=== PATIENT | female | born 1985 | race Caucasian/White ===

== ENCOUNTER 2016-12-05 11:33 | Inpatient (IN) | payer BC ==
[2016-12-05] VITALS (10 sets, daily range): BP systolic 128–163; BP diastolic 71–109
[~2016-12-05] VITALS: Ht 162.6 cm; Wt 61.4 kg
[~2016-12-05 11:33] MED LIST: /INSU7030 SC; /MOXI40TA PO; /PRAV20TA PO; ACET500C OR; ACET500C PO; ACET50TAOT PO; ACET65TA; ACET65TA OR; AMOXIL500 PO; BACT800T5 PO; CELE20TA OR; CELE20TA PO; CEPA0.05 OR; CIPR500T89 PO; CITA10TA2 PO; DEPO150I IM; HYDR-3713 PO; IBUP200C PO; IMODIUM AD PO; INSUH10VL SC; INSULADS SC; INSULANT; INSULANT SC; K-TA10TA; K-TA10TA2 PO; K-TA1TAB PO; KCL PO; KEFL750C5 PO; LEVA750T PO; LINE60TAB PO; Lantus Insulin SC; MEDR4PAK PO; METH-107 PO; METO10TA2 PO; MIRALEX PO; MULTCAP PO; MULTIVIT PO; MULTTAB4 PO; NAPR500T2 PO; NEEDLEBB SC; NEUTPW PO; NOVOINJ SC; NOVOLIN 70/30 SC; NOVOLOG SC; NOVOLOG100 MG/ML; NOVOLOG100 MG/ML SC; NOVOLOGPEN SQ; OMEP20CA3 PO; OMEP40CA2 PO; PHEN 25 PO; POTA-77 PO; POTA10CA2 OR; POTA20IN PO; POTA20TA2 OR; POTA75TA PO; POTA99TA PO; POTASSIUM GLUCONATE PO; POTASSIUM OR; PRAV1TAB39 PO; PRAV40TA PO; PRAV40TA2 PO; Potassium PO; SKEL800T5 OR; SYRINS1CC SUBQ; VERA40TA2 PO; VITAD1000T OR; VITMTA PO; ZITHROM250 PO; ZOFR20TA PO; [UNRECOGNIZED DRUG - OTHER] SC; [UNRECOGNIZED DRUG - OTHER] TOP; colace PO; mag oxide PO; novol; novolog; novolog insulin pump SC; potassium gluconate
[2016-12-05 12:28] LABS: BASO # 0.1 K/mm3 (0.0-0.2); BASO % 0.6 % (0.0-1.0); EOS # 0.1 K/mm3 (0.0-0.50); EOS % 0.4 % (0.0-3.0); LARGE UNSTAINED CELL # 0.2 K/mm3 (0.0-0.4); LARGE UNSTAINED CELL % 1.1 % (0.0-4.0); LYMPH # 4.2 K/mm3 (1.5-6.5); LYMPH % 20.5 % (24.0-44.0); MEAN CORPUSCULAR HEMOGLOBIN 31.5 pg (27.0-33.0); MEAN CORPUSCULAR HGB CONC 31.6 g/dl (32.0-36.5); MEAN CORPUSCULAR VOLUME 99.8 fl (80.0-96.0); MONO # 0.9 K/mm3 (0.0-0.8); MONO % 4.3 % (0.0-5.0); NEUTROPHILS # 14.9 K/mm3 (1.8-7.7); NEUTROPHILS % 73.1 % (36.0-66.0); PLATELET COUNT, AUTOMATED 450 k/mm3 (150-450); RED CELL DISTRIBUTION WIDTH 13.4 % (11.5-14.5); WHITE BLOOD COUNT 20.4 K/mm3 (4.0-10.0)
[2016-12-05 12:37] LABS: CONTROL LINE HCG INT CTR LINE PRESENT
[2016-12-05 12:44] LABS: ALBUMIN/GLOBULIN RATIO 0.85 (1.00-1.93); ALKALINE PHOSPHATASE 134 U/L (45-117); ALT/SGPT 27 U/L (12-78); ANION GAP 24 MEQ/L (8-16); AST/SGOT 22 U/L (15-37); BILIRUBIN,DIRECT 0.1 MG/DL (0.0-0.2); BILIRUBIN,TOTAL 0.4 MG/DL (0.2-1.0); BLOOD UREA NITROGEN 31 MG/DL (7-18); CALCIUM LEVEL 9.1 MG/DL (8.5-10.1); CARBON DIOXIDE LEVEL 5 MEQ/L (21-32); CHLORIDE LEVEL 104 MEQ/L (98-107); CREATININE FOR GFR 1.57 MG/DL (0.55-1.02); GLOMERULAR FILTRATION RATE 41.5 (>60); SODIUM LEVEL 133 MEQ/L (136-145); TOTAL PROTEIN 8.7 GM/DL (6.4-8.2)
[2016-12-05 12:46] LABS: GLUCOSE, FASTING 736 MG/DL (70-105); POTASSIUM SERUM 5.4 MEQ/L (3.5-5.1)
--- NOTE | 2016-12-05 13:18 | ECGEPIP ---
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
[2016-12-05] MEDS ORDERED: HumuLIN R (REGULAR) INSULIN (NovoLIN R) **100U/ML** PER UNIT As Ordered ONE (13:25)
[2016-12-05] MEDS ORDERED: INSULIN HUMAN REGULAR 100 UNITS in NS 99 ML IV SCH (13:30)
[2016-12-05 13:50] LABS: ABG DEVICE NASAL CANN; ABG HCO3 1.5 MEQ/L (22.0-26.0); ABG PARTIAL PRESSURE O2 182.2 mmHg (75.0-100.0); ABG STANDARD HCO3 3.7 MEQ/L (22.0-26.0); ABG TOTAL CO2 1.8 MEQ/L (22.0-29.0)
[2016-12-05 13:54] LABS: ABG PARTIAL PRESSURE CO2 11.5 mmHg (35.0-45.0); ABG pH (ARTERIAL) 6.721 UNITS (7.350-7.450)
[2016-12-05] MEDS ORDERED: SODIUM BICARBONATE 8.4% INJ 50 ML SYRINGE As Ordered ONE (14:10)
[2016-12-05] MEDS: NS 1,000 ML IV SCH ×2 (14:45→19:40)
--- NOTE | 2016-12-05 14:49 | REP ---
AP portable semi upright chest radiograph. Indication: Shortness of breath. Comparison: Portable chest 08/29/2015. The cardiac silhouette and mediastinal silhouette are within normal limits. Lungs are clear. Bones and soft tissues within normal limits. IMPRESSION: Negative portable chest radiograph. Signed by Barb Lacy MD 12/06/2016 10:56 A
--- NOTE | 2016-12-05 15:39 | EDDOCDS ---
Nurse's Notes [facility] Name: Kirit Paez Age: 31 yrs Sex: Female : 1985 Arrival Date: 12/05/2016 Time: 11:33 Bed 1 Private MD: Rach Claire Diagnosis: Type 1 diabetes mellitus with ketoacidosis Presentation: 12/05 11:39 Presenting complaint: Father states: patient has not checked blood sugars since kr3 11/26/16. Yesterday patient refused to come out of her room even with encouragement to eat something. Patient is noncompliant with meds per father and has had multiple admissions related to this. Adult Sepsis Screening: Patient has new or worsening altered mentation (1 point). Patient has a respiratory rate of greater than or equal to 22 (1 point). Systolic blood pressure is greater than 100. Patient has a qSOFA score of 2. No known or suspected infection- Negative Sepsis Screen. Suicide/Homicide risk assessment- the patient denies having any suicidal and/or homicidal ideations and does not present with any other emotional, behavioral or mental health complaints. 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 Transition of care: patient was not received from another setting of care. 11:39 Acuity: DENA Level 2 kr3 11:39 Method Of Arrival: Wheelchair kr3 11:48 Red Flag criteria, patient assessed and taken directly to a bed. kr3 Triage Assessment: 11:43 General: Appears ill, Behavior is cooperative. Pain: Unable to use pain scale. Does not kr3 appear to understand pain scale. HIV screening NA for this visit Offered previously. The patient is triaged at the bedside. See Assessment in Nurses Notes section of ED record. Neurological: Level of Consciousness is listless. Respiratory: Airway is patent Respiratory effort is labored. Derm: Skin is pale, Skin temperature is cool. 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 Novolog 100 unit/mL Sub-Q soln AC and HS Sliding Scale 2. Lantus 100 unit/mL Sub-Q soln Unknown twice a day 3. Depo-Provera 150 mg/mL IM syrg 1 mL every 3 mo - PMHx: Diabetes - IDDM: controlled; Hypercholesterolemia; hypokalemia; - PSHx: none; - Social history: Smoking status: Patient states was never smoker of tobacco. No barriers to communication noted, The patient speaks fluent Syrian. - Family history: Not pertinent. - : The pt / caregiver states he / she is not on anticoagulants. Home medication list is obtained from family members. - Exposure Risk Screening:: None identified. Screenin:32 Screening information is obtained from prior medical records. Fall risk: At risk due to srm apparent chemical impairment. Assistance ADL's: unable to assess. Abuse/DV Screen: Unable to Assess. Abuse/DV Screen: The patient / caregiver reports he/she is: pt cannot be assessed for living situation at this time. Nutritional screening: Unable to Assess. Advance Directives: Unable to assess Advance Directive status due to pt condition. home support is inadequate. Assessment: 11:51 General: Appears distressed, Behavior is drowsy. Neurological: Level of Consciousness ja5 is lethargic, obeys commands, Oriented to. Cardiovascular: Capillary refill < 3 seconds Heart tones S1 S2 present. Respiratory: Airway is patent Respiratory effort is labored, Respiratory pattern is tachypnea Breath sounds are clear. Derm: Skin is intact, Skin is Skin is pink, warm & dry. 11:53 Neurological: Oriented to person, place. ja5 13:14 General: Triple lumen central line placed to right groin, patient tolerated well. ja5 Patient still has rapid deep respirations ranging from 24-32 breaths per minute. IV bolus initiated.. 13:38 General: Appears distressed, Behavior is drowsy, listless. Neurological: Level of srm Consciousness is lethargic, obeys commands. Respiratory: Airway is patent Respiratory effort is labored, Respiratory pattern is Kussmaul tachypnea Sputum is Breath sounds are clear bilaterally. 13:38 GI: Abdomen is distended, Bowel sounds present X 4 quads. Abd is soft and non tender X srm 4 quads. :. Derm: Skin is intact, Skin is dry, Skin is pale, Skin temperature is cool. 13:58 General: pt incontinent large amount of urine. linens changed and pt cleaned. srm 13:58 Respiratory: Respiratory pattern is Kussmaul tachypnea. srm 14:32 General: pt was sitting up on stretcher with eyes open for 1-2 mins but then reclosed. srm nods and short responses. FSBS read high- dr frias aware. kussmaul resp chest clear. nsr on monitor. . 15:24 General: Appears in no apparent distress, arouses occasionally but hen falls asleep srm again. resp less labored chest clear. bs+. right femoral central line insertion site clean without redness or swelling. Vital Signs: 11:35 BP 126 / 72 LA Sitting (auto/reg); Pulse 123 LA; Resp 28 S; Temp 92.8(T); Pulse Ox 99% mt4 on R/A; 12:05 Temp 96.5(TE); ja5 12:20 BP 121 / 79 (auto/); jc4 12:21 Pulse 116 MON; Pulse Ox 97% ; jc4 12:26 BP 133 / 79 (auto/); jc4 12:27 Pulse 114 MON; Pulse Ox 97% ; jc4 12:40 Pulse 112 MON; Pulse Ox 98% ; jc4 12:41 BP 134 / 78 (auto/); jc4 12:56 BP 134 / 81 (auto/); jc4 12:59 Pulse 112 MON; Pulse Ox 98% ; jc4 13:11 BP 138 / 77 (auto/); jc4 13:12 Pulse 112 MON; Pulse Ox 98% ; jc4 13:16 Weight 58.97 kg (R); ar3 13:59 BP 134 / 83; Pulse 111; Resp 24; Pulse Ox 96% on 3 lpm NC; srm 15:31 BP 131 / 73; Pulse 112; Resp 22; Temp 94.1(R); Pulse Ox 100% on 3 lpm NC; srm 11:35 PT IS SIGNIFICANT RESPIRATORY DISTRESS. mt4 Vitals: 11:35 Log In Time: December 05, 2016 at 11:33. RN notified that patient meets Red Flag mt4 criteria. ED Course: 11:34 Patient visited by Maris Carpenter. mt4 11:34 Patient moved to Waiting mt4 11:35 Rach Claire is Private Physician. mt4 11:39 Rosanna Lewis,RN is Primary Nurse. kr3 11:39 Nickie Pineda, RN is Primary Nurse. kr3 11:39 Patient moved to 12 kr3 11:42 Triage Initiated kr3 11:50 Inserted saline lock: 22 gauge in right hand. jc4 11:53 Nydia Frias MD is Attending Physician. br1 12:34 [facility] Payment Agreement was scanned into [employer] and attached to record. lg 12:35 Patient visited by Fouzia Jaramillo. nb2 13:00 Assist provider with central line placement of triple lumen in right femoral. Set up ja5 central line tray. Line placed by Nydia Frias MD Placement verified by blood return, Dressed with Tegaderm, Patient tolerated well. Assist provider with chest tube insertion. 13:06 Patient visited by Nydia Frias MD. br1 13:14 Patient visited by Rosanna Lewis RN. ja5 13:31 Patient moved to 1 ar3 13:37 The patient / caregiver is instructed regarding the plan of care and ED course. Report srm received from Ann Pineda rn. retail shift manager on. Pulse ox on. NIBP on. 13:39 Patient visited by Elise Smyth RN. srm 13:43 EKG-ADULT Returned. EDMS 13:44 -Arterial Blood Gas Sent. lb 14:00 Patient visited by Elise Smyth RN. srm 14:29 Mario Craig is Hospitalizing Provider. br1 14:34 Patient visited by Elise Smyth RN. srm 14:36 Patient visited by Elise Smyth RN. srm 14:57 Chest, 1 View Returned. EDMS 15:25 Patient visited by Elise Smyth RN. srm Administered Medications: 13:21 Drug: NS 0.9% 1000 ml [sodium chloride 0.9 % intravenous solution] Route: IV; Rate: jc4 bolus; Site: right femoral; 14:16 Follow up: IV Status: Completed infusion srm 13:30 Drug: Insulin Regular Human 6 units [insulin regular human 100 unit/mL injection mb9 solution (0.06 mL)] {Co-Signature: ld5 (Nayeli Nava RN).} Route: IVP; Site: right femoral; 13:35 Drug: Insulin Regular Human Infusion (0.1units/kg/hr) 6 units/hr [insulin regular human mb9 100 unit/mL injection solution] {Co-Signature: ld5 (Nayeli Nava RN).} Route: IV; Rate: calculated rate; Site: right femoral; 14:12 Drug: Sodium Bicarbonate 1 amp Route: IVP; Site: right femoral; srm 14:17 Drug: NS 0.9% 1000 ml [sodium chloride 0.9 % intravenous solution] Route: IV; Rate: 150 srm mL/hr; Site: right femoral; Point of Care Testing: Blood Glucose: 11:49 Blood Glucose: High; kr3 14:35 Blood Glucose: High; srm 15:31 Blood Glucose: 596 mg/dL; srm Ranges: Intake: 15:34 IV: 1215.00ml; Total: 1215.00ml. srm 15:34 incontinent lrage amount srm RT: 13:44 ABG's drawn from right radial artery allens test done and positive pressure held for 5 lb minutes no bleeding noted pressure bandage applied specimen sent pt. tolerated well. Order Results: Lab Order: CBC with Diff; SPEC'M 12/05/16 12:21 Test: WHITE BLOOD COUNT; Value: 20.4; Range: 4.0-10.0; Abnormal: Above high normal; Units: K/mm3; Status: F Test: RED BLOOD COUNT; Value: 4.87; Range: 4.00-5.40; Units: M/mm3; Status: F Test: HEMOGLOBIN; Value: 15.3; Range: 12.0-16.0; Units: g/dl; Status: F Test: HEMATOCRIT; Value: 48.6; Range: 36.0-47.0; Abnormal: Above high normal; Units: %; Status: F Test: MEAN CORPUSCULAR VOLUME; Value: 99.8; Range: 80.0-96.0; Abnormal: Above high normal; Units: fl; Status: F Test: MEAN CORPUSCULAR HEMOGLOBIN; Value: 31.5; Range: 27.0-33.0; Units: pg; Status: F Test: MEAN CORPUSCULAR HGB CONC; Value: 31.6; Range: 32.0-36.5; Abnormal: Below low normal; Units: g/dl; Status: F Test: RED CELL DISTRIBUTION WIDTH; Value: 13.4; Range: 11.5-14.5; Units: %; Status: F Test: PLATELET COUNT, AUTOMATED; Value: 450; Range: 150-450; Units: k/mm3; Status: F Test: NEUTROPHILS %; Value: 73.1; Range: 36.0-66.0; Abnormal: Above high normal; Units: %; Status: F Test: LYMPH %; Value: 20.5; Range: 24.0-44.0; Abnormal: Below low normal; Units: %; Status: F Test: MONO %; Value: 4.3; Range: 0.0-5.0; Units: %; Status: F Test: EOS %; Value: 0.4; Range: 0.0-3.0; Units: %; Status: F Test: BASO %; Value: 0.6; Range: 0.0-1.0; Units: %; Status: F Test: LARGE UNSTAINED CELL %; Value: 1.1; Range: 0.0-4.0; Units: %; Status: F Test: NEUTROPHILS #; Value: 14.9; Range: 1.8-7.7; Abnormal: Above high normal; Units: K/mm3; Status: F Test: LYMPH #; Value: 4.2; Range: 1.5-6.5; Units: K/mm3; Status: F Test: MONO #; Value: 0.9; Range: 0.0-0.8; Abnormal: Above high normal; Units: K/mm3; Status: F Test: EOS #; Value: 0.1; Range: 0.0-0.50; Units: K/mm3; Status: F Test: BASO #; Value: 0.1; Range: 0.0-0.2; Units: K/mm3; Status: F Test: LARGE UNSTAINED CELL #; Value: 0.2; Range: 0.0-0.4; Units: K/mm3; Status: F Lab Order: [facility]; [facility]'M 12/05/16 12:21 Test: GLUCOSE, FASTING; Value: 736; Range: 70-105; Abnormal: Above upper panic limits; Units: MG/DL; Status: F Test: BLOOD UREA NITROGEN; Value: 31; Range: 7-18; Abnormal: Above high normal; Units: MG/DL; Status: F Test: CREATININE FOR GFR; Value: 1.57; Range: 0.55-1.02; Abnormal: Above high normal; Units: MG/DL; Status: F Test: SODIUM LEVEL; Range: 136-145; Units: MEQ/L; Status: I Test: POTASSIUM SERUM; Range: 3.5-5.1; Units: MEQ/L; Status: I Test: CHLORIDE LEVEL; Range: 98-107; Units: MEQ/L; Status: I Test: CARBON DIOXIDE LEVEL; Range: 21-32; Units: MEQ/L; Status: I Test: ANION GAP; Range: 8-16; Units: MEQ/L; Status: I Test: CALCIUM LEVEL; Range: 8.5-10.1; Units: MG/DL; Status: I Test: GLOMERULAR FILTRATION RATE; Value: 41.5; Range: >60; Abnormal: Below low normal; Status: F Test: SODIUM LEVEL; Value: 133; Range: 136-145; Abnormal: Below low normal; Units: MEQ/L; Status: F Test: POTASSIUM SERUM; Value: 5.4; Range: 3.5-5.1; Abnormal: Above high normal; Units: MEQ/L; Status: F Test: CHLORIDE LEVEL; Value: 104; Range: 98-107; Units: MEQ/L; Status: F Test: CARBON DIOXIDE LEVEL; Value: 5; Range: 21-32; Abnormal: Below low normal; Units: MEQ/L; Status: F Test: ANION GAP; Value: 24; Range: 8-16; Abnormal: Above high normal; Units: MEQ/L; Status: F Test: CALCIUM LEVEL; Value: 9.1; Range: 8.5-10.1; Units: MG/DL; Status: F Test Note: ; Units are mL/min/1.73 m2 Chronic Kidney Disease Staging per NKF: Stage I & II GFR >=60 Normal to Mildly Decreased Stage III GFR 30-59 Moderately Decreased Stage IV GFR 15-29 Severely Decreased Stage V GFR <15 Very Little GFR Left ESRD GFR <15 on CARPENTER/LABOR Lab Order: Liver Profile; SPEC'M 12/05/16 12:21 Test: AST/SGOT; Value: 22; Range: 15-37; Units: U/L; Status: F Test: ALT/SGPT; Value: 27; Range: 12-78; Units: U/L; Status: F Test: ALKALINE PHOSPHATASE; Value: 134; Range: 45-117; Abnormal: Above high normal; Units: U/L; Status: F Test: BILIRUBIN,TOTAL; Value: 0.4; Range: 0.2-1.0; Units: MG/DL; Status: F Test: BILIRUBIN,DIRECT; Value: 0.1; Range: 0.0-0.2; Units: MG/DL; Status: F Test: TOTAL PROTEIN; Value: 8.7; Range: 6.4-8.2; Abnormal: Above high normal; Units: GM/DL; Status: F Test: ALBUMIN; Value: 4.0; Range: 3.2-5.2; Units: GM/DL; Status: F Test: ALBUMIN/GLOBULIN RATIO; Value: 0.85; Range: 1.00-1.93; Abnormal: Below low normal; Status: F Lab Order: Acetone Level; [facility] 12/05/16 12:21 Test: ACETONE/KETONE; Value: > 46.00; Range: <2.81; Abnormal: Above high normal; Units: MG/DL; Status: F Lab Order: HCG,Serum Qualitative; [facility] 12/05/16 12:21 Test: HCG, SERUM QUALITATIVE; Value: NEGATIVE; Range: NEGATIVE; Status: F Lab Order: -Arterial Blood Gas; [facility] 12/05/16 13:39 Test: ABG pH (ARTERIAL); Value: 6.721; Range: 7.350-7.450; Abnormal: Critical Low; Units: UNITS; Status: F Test: ABG PARTIAL PRESSURE CO2; Value: 11.5; Range: 35.0-45.0; Abnormal: Critical Low; Units: mmHg; Status: F Test: ABG PARTIAL PRESSURE O2; Value: 182.2; Range: 75.0-100.0; Abnormal: Above high normal; Units: mmHg; Status: F Test: ABG TOTAL CO2; Value: 1.8; Range: 22.0-29.0; Abnormal: Below low normal; Units: MEQ/L; Status: F Test: ABG HCO3; Value: 1.5; Range: 22.0-26.0; Abnormal: Below low normal; Units: MEQ/L; Status: F Test: ABG BASE EXCESS; Value: -34.0; Range: -2.0-2.0; Abnormal: Below low normal; Status: F Test: ABG STANDARD HCO3; Value: 3.7; Range: 22.0-26.0; Abnormal: Below low normal; Units: MEQ/L; Status: F Test: ABG O2 SATURATION; Value: 98.6; Range: 95.0-99.0; Units: %; Status: F Test: ABG DEVICE; Value: NASAL ALHAJI; Status: F Lab Order: HEMOGLOBIN A1C; SPEC'M 12/05/16 12:21 Test: HEMOGLOBIN A1c; Value: 12.4; Range: 4.5-6.2; Abnormal: Above high normal; Units: %; Status: F Test: ESTIMATED AVERAGE GLUCOSE; Value: 309; Range: 60-110; Abnormal: Above high normal; Units: MG/DL; Status: F Radiology Order: EKG-ADULT Test: EKG-ADULT REASON FOR EXAMINATION: dysrhythmia; Stationary ECG Study; [facility] - ED; ; Test Date: 2016-12-05; Pat Name: KIRIT PAEZ Department:; Room: -; 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: F 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; : 1985 Requested By: NYDIA Luz; Order Number: [id number] Reading MD: Megan Santillan; Measurements; Intervals [place]; Rate: 114 P: 65; LA: 136 QRS: 36; QRSD: 94 T: 17; QT: 326; QTc: 450; Interpretive Statements; SINUS TACHYCARDIA; NONSPECIFIC T-WAVE ABNORMALITY; ABNORMAL RHYTHM ECG; ; Electronically Signed On 12-05-2016 13:18:46 EST by Megan Santillan; Radiology Order: Chest, 1 View Test: Chest, 1 View REASON FOR EXAMINATION: Shortness of Breath; AP portable semi upright chest radiograph.; ; Indication: Shortness of breath.; ; Comparison: Portable chest 08/29/2015.; ; ; The cardiac silhouette and mediastinal silhouette are within normal limits. Lungs; are clear. Bones and soft tissues within normal limits.; ; IMPRESSION:; Negative portable chest radiograph.; ; ; ; ; ; Unreviewed; Outcome: 14:29 Decision to Hospitalize by Provider. br1 15:36 Discharge Assessment: patient administered narcotics - no. The following High Risk srm Discharge criteria are identified: None. Admitted to ICU accompanied by nurse, accompanied by tech, via stretcher, with oxygen, on monitor, with chart. Condition: stable critical. No special radiology studies were completed. Property :Personal belongings accompany Pt. 15:37 Patient left the ED. srm Signatures: Dispatcher [employer] EDMS Elise Smyth, RN RN Wolf Malone, Justus Reg Rosemary Hernandez Kathleen,RN RN kr3 Nydia Frias MD MD br1 Jayden, Maris mt4 Kristi Quintana, EVS MANAGER EVS MANAGER ar3 Nickie Pineda RN RN jc4 Femi John RN RN anita9 Fouzia Jaramillo2 Rosanna Lewis RN RN ja5 Nayeli Nava RN ld5 MTDD
--- NOTE | 2016-12-05 15:39 | EDDOCDS ---
Physician Documentation [facility] Name: Carolina Paez Age: 31 yrs Sex: Female : 1985 Arrival Date: 12/05/2016 Time: 11:33 Bed 1 Private MD: Rach Claire Disposition: 12/05/16 14:29 Hospitalization ordered by Mario Craig for Inpatient Admission. Preliminary diagnosis is Type 1 diabetes mellitus with ketoacidosis. - Bed requested for M ICU. - Status is Inpatient Admission. srm - Condition is Stable. - Problem is new. - Symptoms are unchanged. Historical: - Allergies: No known drug Allergies; - Home Meds: 1. Novolog 100 unit/mL Sub-Q soln AC and HS Sliding Scale 2. Lantus 100 unit/mL Sub-Q soln Unknown twice a day 3. Depo-Provera 150 mg/mL IM syrg 1 mL every 3 mo - PMHx: Diabetes - IDDM: controlled; Hypercholesterolemia; hypokalemia; - PSHx: none; - Social history: Smoking status: Patient states was never smoker of tobacco. No barriers to communication noted, The patient speaks fluent Syriac. - Family history: Not pertinent. - : The pt / caregiver states he / she is not on anticoagulants. Home medication list is obtained from family members. - Exposure Risk Screening:: None identified. 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 11:47 LMP N/A - control method kr3 Vital Signs: 11:35 BP 126 / 72 LA Sitting (auto/reg); Pulse 123 LA; Resp 28 S; Temp 92.8(T); Pulse Ox 99% mt4 on R/A; 12:05 Temp 96.5(TE); ja5 12:20 BP 121 / 79 (auto/); jc4 12:21 Pulse 116 MON; Pulse Ox 97% ; jc4 12:26 BP 133 / 79 (auto/); jc4 12:27 Pulse 114 MON; Pulse Ox 97% ; jc4 12:40 Pulse 112 MON; Pulse Ox 98% ; jc4 12:41 BP 134 / 78 (auto/); jc4 12:56 BP 134 / 81 (auto/); jc4 12:59 Pulse 112 MON; Pulse Ox 98% ; jc4 13:11 BP 138 / 77 (auto/); jc4 13:12 Pulse 112 MON; Pulse Ox 98% ; jc4 13:16 Weight 58.97 kg / 130.01 lbs (R); ar3 13:59 BP 134 / 83; Pulse 111; Resp 24; Pulse Ox 96% on 3 lpm NC; srm 15:31 BP 131 / 73; Pulse 112; Resp 22; Temp 94.1(R); Pulse Ox 100% on 3 lpm NC; srm 11:35 PT IS SIGNIFICANT RESPIRATORY DISTRESS. mt4 Procedures: 13:20 Peripheral line: by aseptic technique a peripheral line was placed in the right br1 external jugular vein, Attempted 20 gauge Right EJ peripheral IV placement in neck, unsuccessful. Pressure held, hemostatic.. 13:21 Central Line: the site was prepped with Betadine, in sterile fashion, a triple lumen br1 catheter was inserted, in the right femoral vein, placement was verified, by blood return, the site was dressed with Tegaderm, using sterile technique, the patient tolerated the procedure, well. MDM: 11:55 IV Saline Lock ordered. br1 11:55 Overnight Babysitter/Pulse Ox/q 30 min VS ordered. br1 11:56 CBC with Diff Ordered. EDMS 11:56 BMP Ordered. EDMS 11:56 Liver Profile Ordered. EDMS 11:56 Acetone Level Ordered. EDMS 11:56 HCG,Serum Qualitative Ordered. EDMS 11:56 ECG WITH READING ER PHYS+CARDIAG ordered. EDMS 12:03 NS 0.9% 1000 ml IV at bolus once ordered. br1 12:34 [facility] Payment Agreement was scanned into [employer] and attached to record. lg 13:13 CBC with Diff Reviewed. br1 13:13 BMP Reviewed. br1 13:13 Liver Profile Reviewed. br1 13:13 Acetone Level Reviewed. br1 13:13 HCG,Serum Qualitative Reviewed. br1 13:16 Insulin Regular Human 6 units IVP once ordered. br1 13:17 Insulin Regular Human Infusion (0.1units/kg/hr) 6 units/hr IV at calculated rate Per br1 protocol ordered. 13:18 Call Respiratory ordered. br1 13:18 Chest, 1 View Ordered. EDMS 13:18 Oxygen at 2L/min via NC ordered. br1 13:19 Call Respiratory complete. ar3 13:19 -Arterial Blood Gas Ordered. EDMS 13:20 Accucheck hourly ordered. br1 13:20 BED REQUEST+ADM ordered. EDMS 13:23 NS 0.9% 1000 ml IV at 150 mL/hr continuous ordered. br1 13:32 Urinalysis Ordered. EDMS 13:32 Urine Culture Ordered. EDMS 14:09 Sodium Bicarbonate 1 amp IVP once ordered. br1 14:09 -Arterial Blood Gas Reviewed. br1 14:09 EKG-ADULT Reviewed. br1 14:57 ACETONE/KETONE Ordered. EDMS 14:58 BASIC METABOLIC PROFILE Ordered. EDMS 14:58 BASIC METABOLIC PROFILE Ordered. EDMS 14:58 BASIC METABOLIC PROFILE Ordered. EDMS 14:59 Admission / Observation Status ordered. EDMS 14:59 NPO DIET ordered. EDMS 15:05 HEMOGLOBIN A1C Ordered. EDMS Point of Care Testing: Blood Glucose: 11:49 Blood Glucose: High; kr3 14:35 Blood Glucose: High; srm 15:31 Blood Glucose: 596 mg/dL; srm Ranges: Administered Medications: 13:21 Drug: NS 0.9% 1000 ml [sodium chloride 0.9 % intravenous solution] Route: IV; Rate: jc4 bolus; Site: right femoral; 14:16 Follow up: IV Status: Completed infusion srm 13:30 Drug: Insulin Regular Human 6 units [insulin regular human 100 unit/mL injection mb9 solution (0.06 mL)] {Co-Signature: ld5 (Nayeli Nava RN).} Route: IVP; Site: right femoral; 13:35 Drug: Insulin Regular Human Infusion (0.1units/kg/hr) 6 units/hr [insulin regular human mb9 100 unit/mL injection solution] {Co-Signature: ld5 (Nayeli Nava RN).} Route: IV; Rate: calculated rate; Site: right femoral; 14:12 Drug: Sodium Bicarbonate 1 amp Route: IVP; Site: right femoral; srm 14:17 Drug: NS 0.9% 1000 ml [sodium chloride 0.9 % intravenous solution] Route: IV; Rate: 150 srm mL/hr; Site: right femoral; Signatures: Dispatcher [employer] EDPreet Holbrook RN Elise Stinson RN RN srm Wolf Lundberg, Reg Vanesa Romero lgRN RN kr3 Elia Menard MD MD br1 Kristi Quintana, CONCRETE BLOCK MAKER CONCRETE BLOCK MAKER ar3 [place], Nickie, RN RN jc4 Femi John RN mb9 Nayeli Nava RN ld5 The chart was reviewed and I authenticate all verbal orders and agree with the evaluation and treatment provided.Corrections: (The following items were deleted from the chart) 15:07 14:57 HEMOGLOBIN A1C ordered. EDMS EDMS Attachments: 12:34 [facility] Payment Agreement lg MTDD
[2016-12-05 15:44] LABS: ANION GAP 27 MEQ/L (8-16); BLOOD UREA NITROGEN 34 MG/DL (7-18); CALCIUM LEVEL 8.7 MG/DL (8.5-10.1); CARBON DIOXIDE LEVEL 3 MEQ/L (21-32); CHLORIDE LEVEL 113 MEQ/L (98-107); CREATININE FOR GFR 1.56 MG/DL (0.55-1.02); GLOMERULAR FILTRATION RATE 41.8 (>60); POTASSIUM SERUM 4.8 MEQ/L (3.5-5.1); SODIUM LEVEL 143 MEQ/L (136-145)
[2016-12-05 15:45] LABS: GLUCOSE, FASTING 599 MG/DL (70-105)
[2016-12-05] MEDS: INSULIN IV RATE CHANGE DOCUMENTATION ML/HR XX SCH ×3 (16:15→18:00)
[2016-12-05] MEDS ORDERED: SODIUM CHLORIDE 0.9% 1000 ML IV ONE (16:30)
--- NOTE | 2016-12-05 18:16 | HPE ---
DATE OF ADMISSION: 12/05/2016 PRIMARY CARE PHYSICIAN: Dr. Claire REASON FOR ADMISSION: Diabetic ketoacidosis (DKA). HISTORY OF PRESENT ILLNESS: Patient is a 31-year-old female with past medical history significant for insulin-dependent diabetes, multiple hospitalizations for DKA, presented to the emergency room with elevated fasting sugar. She stated she has not been compliant with her medications. Her father was accompanying her. He stated that she has not been compliant with her medications. Her blood sugar was last checked 11/26/2016. The patient was very lethargic, unable to answer any questions at this time. She was found to be in diabetic ketoacidosis with a pH of 6.7, fasting glucose was 731. Acetone level greater than 46. She had an anion gap of 24, carbon dioxide of 5. Hospitalist was called for the admission. REVIEW OF SYSTEMS: 12-point review of systems was unable to be obtained due to the patient's decreased mental status at this time. PAST MEDICAL HISTORY: Significant for insulin-dependent diabetes, hypokalemia, hyperlipidemia. SURGERIES: None. ALLERGIES: None. HOME MEDICATIONS: Include: - sliding scale - Lantus - Depo-Provera SOCIAL HISTORY: No smoking. This is all per record. FAMILY HISTORY: Noncontributory. PHYSICAL FINDINGS: Blood pressure on admission 126/72, pulse 123, respiratory rate 28, temperature 96.5, pulse oximetry 99% on room air. HEENT: Pupils equal, round, reactive. Oral mucosa very dry. CARDIAC: Tachycardiac. No murmurs appreciated. LUNGS: Clear to auscultation (CTA) bilaterally. ABDOMEN: Soft, nontender, positive bowel sounds. EXTREMITIES: No clubbing, cyanosis or edema. NEUROLOGIC: Unable to obtain a neurologic exam at this time due to the patient's altered mentation. LABORATORY FINDINGS: WBC is 20.4, hemoglobin 15.3, hematocrit 48.6, platelet count 450, pH 6.7, pCO2 11.5, pO2 182.2, bicarbonate 1.5, hemoglobin A1c 12.4, sodium 133, potassium 4.8, chloride 113, BUN 34, creatinine 1.5. Beta hydroxybutyrate 46. hCG was negative. Chest x-ray was done in the emergency room which was negative. ASSESSMENT/PLAN: 1. Diabetic ketoacidosis. Continue IV fluids. She received 1 liter bolus in the emergency room. We will continue two more liters normal saline and then rate of 200 mL/hour. Continue insulin drip at a rate of 6 per hour. Continue basic metabolic panels (BMPs) every 4 hours. Continue fingerstick blood sugars every hour. 2. History of noncompliant diabetes. 3. Leukocytosis likely reactive. However, we will cover with antibiotics at this time. 4. Deep venous thrombosis (DVT) prophylaxis. Lovenox while in bed.
[2016-12-05 19:04] LABS: CALCIUM LEVEL 7.8 MG/DL (8.5-10.1); CREATININE FOR GFR 1.15 MG/DL (0.55-1.02); GLOMERULAR FILTRATION RATE 59.4 (>60); POTASSIUM SERUM 4.2 MEQ/L (3.5-5.1)
[2016-12-05] MEDS: KCL 20MEQ IN D5/0.45NS 1000ML 1,000 ML IV SCH (20:00)
[2016-12-05 20:46] LABS: ABG BASE EXCESS -22.3 (-2.0-2.0); ABG HCO3 4.3 MEQ/L (22.0-26.0); ABG PARTIAL PRESSURE O2 126.1 mmHg (75.0-100.0); ABG STANDARD HCO3 8.7 MEQ/L (22.0-26.0); ABG TOTAL CO2 4.6 MEQ/L (22.0-29.0)
[2016-12-05 20:49] LABS: ABG PARTIAL PRESSURE CO2 12.7 mmHg (35.0-45.0); ABG pH (ARTERIAL) 7.143 UNITS (7.350-7.450)
[2016-12-06] VITALS (20 sets, daily range): BP systolic 101–135; BP diastolic 56–90
[2016-12-06] MEDS: KCL 20MEQ IN D5/0.45NS 1000ML 1,000 ML IV SCH ×4 (00:49→14:47)
[2016-12-06 01:40] LABS: ANION GAP 15 MEQ/L (8-16); BLOOD UREA NITROGEN 17 MG/DL (7-18); CALCIUM LEVEL 7.7 MG/DL (8.5-10.1); CARBON DIOXIDE LEVEL 10 MEQ/L (21-32); CHLORIDE LEVEL 119 MEQ/L (98-107); CREATININE FOR GFR 1.11 MG/DL (0.55-1.02); GLOMERULAR FILTRATION RATE > 60.0 (>60); GLUCOSE, FASTING 278 MG/DL (70-105); POTASSIUM SERUM 3.5 MEQ/L (3.5-5.1); SODIUM LEVEL 144 MEQ/L (136-145)
[2016-12-06 03:40] LABS: ANION GAP 13 MEQ/L (8-16); BLOOD UREA NITROGEN 14 MG/DL (7-18); CALCIUM LEVEL 7.9 MG/DL (8.5-10.1); CARBON DIOXIDE LEVEL 12 MEQ/L (21-32); CHLORIDE LEVEL 120 MEQ/L (98-107); CREATININE FOR GFR 1.08 MG/DL (0.55-1.02); GLOMERULAR FILTRATION RATE > 60.0 (>60); GLUCOSE, FASTING 274 MG/DL (70-105); POTASSIUM SERUM 3.5 MEQ/L (3.5-5.1); SODIUM LEVEL 145 MEQ/L (136-145)
[2016-12-06 06:59] LABS: ANION GAP 14 MEQ/L (8-16); BLOOD UREA NITROGEN 12 MG/DL (7-18); CALCIUM LEVEL 8.1 MG/DL (8.5-10.1); CARBON DIOXIDE LEVEL 13 MEQ/L (21-32); CHLORIDE LEVEL 118 MEQ/L (98-107); CREATININE FOR GFR 1.06 MG/DL (0.55-1.02); GLOMERULAR FILTRATION RATE > 60.0 (>60); GLUCOSE, FASTING 248 MG/DL (70-105); POTASSIUM SERUM 3.4 MEQ/L (3.5-5.1); SODIUM LEVEL 145 MEQ/L (136-145)
[2016-12-06] MEDS: ENOXAPARIN 30 MG/0.3 ML SYR (J1650) SC SCH (08:24)
[2016-12-06 11:04] LABS: MEAN CORPUSCULAR HEMOGLOBIN 30.1 pg (27.0-33.0); MEAN CORPUSCULAR HGB CONC 34.7 g/dl (32.0-36.5); RED CELL DISTRIBUTION WIDTH 13.8 % (11.5-14.5); WHITE BLOOD COUNT 6.8 K/mm3 (4.0-10.0)
[2016-12-06 11:13] LABS: MEAN CORPUSCULAR VOLUME 86.8 fl (80.0-96.0)
[2016-12-06 11:54] LABS: ANION GAP 11 MEQ/L (8-16); BLOOD UREA NITROGEN 11 MG/DL (7-18); CALCIUM LEVEL 8.2 MG/DL (8.5-10.1); CARBON DIOXIDE LEVEL 15 MEQ/L (21-32); CHLORIDE LEVEL 119 MEQ/L (98-107); CREATININE FOR GFR 0.95 MG/DL (0.55-1.02); GLOMERULAR FILTRATION RATE > 60.0 (>60); GLUCOSE, FASTING 198 MG/DL (70-105); POTASSIUM SERUM 3.1 MEQ/L (3.5-5.1); SODIUM LEVEL 145 MEQ/L (136-145)
[2016-12-06] MEDS: INSULIN IV RATE CHANGE DOCUMENTATION ML/HR XX SCH ×6 (11:57→17:55)
[2016-12-06] MEDS ORDERED: DEXTROSE 50% 50 ML SYRINGE IV PRN (12:15)
[2016-12-06] MEDS ORDERED: GLUCAGON FOR INJ 1 MG VIAL (J1610) SC PRN (12:15)
[2016-12-06] MEDS ORDERED: GLUCOSE 4 GM CHEW TABLET PO PRN (12:15)
[2016-12-06] MEDS ORDERED: SODIUM CHLORIDE 0.9% INJ 10 ML SYR IV PRN (14:15)
[2016-12-06 15:33] LABS: ANION GAP 9 MEQ/L (8-16); BLOOD UREA NITROGEN 9 MG/DL (7-18); CALCIUM LEVEL 8.2 MG/DL (8.5-10.1); CARBON DIOXIDE LEVEL 17 MEQ/L (21-32); CHLORIDE LEVEL 118 MEQ/L (98-107); CREATININE FOR GFR 0.87 MG/DL (0.55-1.02); GLOMERULAR FILTRATION RATE > 60.0 (>60); GLUCOSE, FASTING 188 MG/DL (70-105); POTASSIUM SERUM 3.2 MEQ/L (3.5-5.1); SODIUM LEVEL 144 MEQ/L (136-145)
--- NOTE | 2016-12-06 15:58 | IPNPDOC ---
Assessment/Plan Date Seen The patient was seen on 12/06/16. Problems Problems: (1) DKA, type 1, not at goal Status: Acute Problem Text: patient arrived in severe DKA secondary to noncompliance (pH 6.7 upon arrival); now improving, gap closed and bicarb much improved; will transition off insulin drip and back onto home long acting insulin 30u BID at dinner tonight; initiate SSI with bedtime tonight; A1c 12.4 (2) CLYDE (acute kidney injury) Status: Acute Problem Text: Cr 1.57 on admit, secondary to dehydration from DKA; now resolved ; after IVF from DKA protocol are turned off this evening, will start gentle NS , which can likely be stopped tomorrow (3) Leukocytosis Status: Acute Problem Text: appears to be reactive from DKA, coupled with severe heme concentration; now resolved; afebrile; Ucx negative (4) HLD (hyperlipidemia) Status: Chronic Problem Text: no home meds reported Plan / VTE VTE Prophylaxis Ordered?: Yes (lovenox) Plan / Urinary Catheter Reason for insertion/continuin: Critical Pt monitoring Subjective Review of Systems CC/HPI The patient is a 31-year-old female admitted with a reason for visit of Diabetic Ketoacidosis. Events since last encounter patient denies any complaints and is not able to give me details about how her glucose became so uncontrolled; she answers direct questions but is not talkative Cardiovascular: Denies: Chest Pain Gastrointestinal: Denies: Vomiting Objective Physical Examination General Exam: Positive: Alert, No Acute Distress Eye Exam: Positive: EOMI ENT Exam: Positive: Atraumatic Chest Exam: Positive: Clear to auscultation, Normal air movement Heart Exam: Positive: Regular Rhythm, Tachycardic Abdomen Exam: Positive: Normal bowel sounds, Soft, Negative: Tenderness Extremity Exam: Negative: Edema Neuro Exam: Positive: Normal Speech Psych Exam: Positive: Oriented x 3, Other (withdrawn) Vital Signs/I&O Vital Signs Date Time Temp Pulse Resp B/P Pulse Ox O2 Delivery O2 Flow Rate FiO2 12/06/16 15:00 93 18 118/67 97 Room Air 12/06/16 12:00 98.1 I&O- Last 24 Hours up to 6 AM 12/06/16 06:00 Intake Total 4400 ml Output Total 2775 ml Balance 1625 ml Laboratory Data Labs 24H Laboratory Tests 2 12/05/16 16:01: Urine Amorphous Sediment , Urine Appearance CLEAR, Urine Color YELLOW, Urine pH 5.0, Urine Specific Bronson 1.020, Urine Protein 2+H, Urine Glucose (UA) 3+H, Urine Ketones 2+H, Urine Urobilinogen 0.2, Urine Bilirubin NEGATIVE, Urine Leukocyte Esterase NEGATIVE, Urine Bacteria (Auto) 1+H, Urine Blood 1+H, Urine Calcium Carbonate Cryst(Auto) , Urine Calcium Oxalate Cryst (Auto) , Urine Calcium Phosphate Mara (Auto) , Urine Cellular Casts , Urine Cystine Crystals , Urine Granular Casts (Auto) , Urine Hyaline Casts (Auto) 0, Urine Leucine Crystals , Urine Mucus (Auto) SMALL, Urine Nitrite NEGATIVE, Urine Oval Fat Bodies (Auto) , Urine RBC (Auto) 1, Urine Renal Epithelial Cells , Urine Sperm ( Auto) , Urine Squamous Epithelial Cells 0, Urine Transitional Epithelial Cells , Urine Trichomonas (Auto) , Urine Triple Phosphate Cryst (Auto) , Urine Tyrosine Crystals , Urine Uric Acid Crystals (Auto) , Urine WBC (Auto) 2, Urine Waxy Casts (Auto) , Urine Yeast-Like Cells (Auto) 12/05/16 16:12: Bedside Glucose (Misc Panel) 480H 12/05/16 17:05: Bedside Glucose (Misc Panel) 378H 12/05/16 18:04: Bedside Glucose (Misc Panel) 275H 12/05/16 18:44: Anion Gap 20H, Blood Urea Nitrogen 27H, Creatinine 1.15H, Sodium Level 148H, Potassium Level 4.2, Chloride Level 123H, Carbon Dioxide Level 5L, Calcium Level 7.8L, Glomerular Filtration Rate 59.4L 12/05/16 18:55: Bedside Glucose (Misc Panel) 244H 12/05/16 19:37: Bedside Glucose (Misc Panel) 236H 12/05/16 20:39: Arterial Blood pH 7.143*L, Arterial Blood Partial Pressure CO2 12.7*L, Arterial Blood Partial Pressure O2 126.1H, Arterial Blood Total CO2 4.6L, Arterial Blood HCO3 4.3L, Arterial Blood Base Excess -22.3L, Arterial Blood Oxygen Saturation 98.2, Blood Gas Bicarbonate Standard 8.7L 12/05/16 20:46: Bedside Glucose (Misc Panel) 242H 12/05/16 22:15: Bedside Glucose (Misc Panel) 267H 12/05/16 22:51: Bedside Glucose (Misc Panel) 278H 12/05/16 23:58: Bedside Glucose (Misc Panel) 269H 12/06/16 00:52: Bedside Glucose (Misc Panel) 281H 12/06/16 01:00: Anion Gap 15, Blood Urea Nitrogen 17, Creatinine 1.11H, Sodium Level 144, Potassium Level 3.5, Chloride Level 119H, Carbon Dioxide Level 10L, Calcium Level 7.7L, Glomerular Filtration Rate > 60.0 12/06/16 01:50: Bedside Glucose (Misc Panel) 289H 12/06/16 03:11: Anion Gap 13, Blood Urea Nitrogen 14, Creatinine 1.08H, Sodium Level 145, Potassium Level 3.5, Chloride Level 120H, Carbon Dioxide Level 12L, Calcium Level 7.9L, Glomerular Filtration Rate > 60.0 12/06/16 03:13: Bedside Glucose (Misc Panel) 257H 12/06/16 04:25: Bedside Glucose (Misc Panel) 250H 12/06/16 05:28: Bedside Glucose (Misc Panel) 262H 12/06/16 06:10: Anion Gap 14, Blood Urea Nitrogen 12, Creatinine 1.06H, Sodium Level 145, Potassium Level 3.4L, Chloride Level 118H, Carbon Dioxide Level 13L, Calcium Level 8.1L, Glomerular Filtration Rate > 60.0 12/06/16 06:13: Bedside Glucose (Misc Panel) 247H 12/06/16 07:17: Bedside Glucose (Misc Panel) 260H 12/06/16 08:05: Bedside Glucose (Misc Panel) 247H 12/06/16 09:03: Bedside Glucose (Misc Panel) 224H 12/06/16 10:02: Bedside Glucose (Misc Panel) 236H 12/06/16 10:51: Anion Gap 11, Blood Urea Nitrogen 11, Creatinine 0.95, Sodium Level 145, Potassium Level 3.1L, Chloride Level 119H, Carbon Dioxide Level 15L, Calcium Level 8.2L, Glomerular Filtration Rate > 60.0 12/06/16 11:08: Bedside Glucose (Misc Panel) 225H 12/06/16 11:55: Bedside Glucose (Misc Panel) 196H 12/06/16 12:53: Bedside Glucose (Misc Panel) 214H 12/06/16 13:59: Bedside Glucose (Misc Panel) 218H 12/06/16 15:06: Anion Gap 9, Blood Urea Nitrogen 9, Creatinine 0.87, Sodium Level 144, Potassium Level 3.2L, Chloride Level 118H, Carbon Dioxide Level 17L, Calcium Level 8.2L, Glomerular Filtration Rate > 60.0 12/06/16 15:07: Bedside Glucose (Misc Panel) 189H CBC/BMP Laboratory Tests 12/05/16 18:44 Calcium Level 7.8 L 12/06/16 01:00 Calcium Level 7.7 L 12/06/16 03:11 Calcium Level 7.9 L 12/06/16 06:10 Calcium Level 8.1 L 12/06/16 10:51 Calcium Level 8.2 L, Red Blood Count 3.64 L, Mean Corpuscular Volume 86.8 #, Mean Corpuscular Hemoglobin 30.1, Mean Corpuscular Hemoglobin Concent 34.7, Red Cell Distribution Width 13.8 12/06/16 15:06 Calcium Level 8.2 L FSBS Laboratory Tests Test 12/05/16 16:12 12/05/16 17:05 12/05/16 18:04 12/05/16 18:55 Range/Units Bedside Glucose (Misc Panel) 480 378 275 244 70-105 MG/DL Test 12/05/16 19:37 12/05/16 20:46 12/05/16 22:15 12/05/16 22:51 Range/Units Bedside Glucose (Misc Panel) 236 242 267 278 70-105 MG/DL Test 12/05/16 23:58 12/06/16 00:52 12/06/16 01:50 12/06/16 03:13 Range/Units Bedside Glucose (Misc Panel) 269 281 289 257 70-105 MG/DL Test 12/06/16 04:25 12/06/16 05:28 12/06/16 06:13 12/06/16 07:17 Range/Units Bedside Glucose (Misc Panel) 250 262 247 260 70-105 MG/DL Test 12/06/16 08:05 12/06/16 09:03 12/06/16 10:02 12/06/16 11:08 Range/Units Bedside Glucose (Misc Panel) 247 224 236 225 70-105 MG/DL Test 12/06/16 11:55 12/06/16 12:53 12/06/16 13:59 12/06/16 15:07 Range/Units Bedside Glucose (Misc Panel) 196 214 218 189 70-105 MG/DL Microbiology Microbiology 12/05/16 MRSA Screen, Received Pending 12/05/16 Urine Culture - Final, Complete YEHUDA GARCIA Dec 06, 2016 15:58
[2016-12-06] MEDS ORDERED: LEVEMIR (INSULIN DETEMIR) 1 UNITS/0.01ML SC ONE (17:00)
[2016-12-06] MEDS ORDERED: NS 1,000 ML IV SCH ×2 (19:00→21:45)
[2016-12-06] MEDS ORDERED: POTASSIUM CHLORIDE 10 MEQ SR TABLET PO ONE (19:00)
[2016-12-06] MEDS ORDERED: HumaLOG INSULIN (NovoLOG) PER UNIT SC SCH (21:00)
[2016-12-06] MEDS: SODIUM CHLORIDE 0.9% INJ 10 ML SYR IV SCH (21:05)
[2016-12-06 21:24] LABS: MEAN CORPUSCULAR HEMOGLOBIN 29.9 pg (27.0-33.0); RED CELL DISTRIBUTION WIDTH 14.9 % (11.5-14.5); WHITE BLOOD COUNT 5.8 K/mm3 (4.0-10.0)
[2016-12-06 21:28] LABS: ANION GAP 11 MEQ/L (8-16); BLOOD UREA NITROGEN 7 MG/DL (7-18); CALCIUM LEVEL 8.5 MG/DL (8.5-10.1); CARBON DIOXIDE LEVEL 16 MEQ/L (21-32); CHLORIDE LEVEL 117 MEQ/L (98-107); CREATININE FOR GFR 0.84 MG/DL (0.55-1.02); GLOMERULAR FILTRATION RATE > 60.0 (>60); GLUCOSE, FASTING 240 MG/DL (70-105); POTASSIUM SERUM 3.2 MEQ/L (3.5-5.1); SODIUM LEVEL 144 MEQ/L (136-145)
[2016-12-06] MEDS ORDERED: SODIUM CHLORIDE 0.9% 1000 ML IV ONE (21:45)
[2016-12-07] VITALS: BP 123/60
[2016-12-07 00:15] LABS: ANION GAP 10 MEQ/L (8-16); BLOOD UREA NITROGEN 8 MG/DL (7-18); CALCIUM LEVEL 8.2 MG/DL (8.5-10.1); CARBON DIOXIDE LEVEL 18 MEQ/L (21-32); CHLORIDE LEVEL 121 MEQ/L (98-107); CREATININE FOR GFR 0.72 MG/DL (0.55-1.02); GLOMERULAR FILTRATION RATE > 60.0 (>60); GLUCOSE, FASTING 135 MG/DL (70-105); POTASSIUM SERUM 3.3 MEQ/L (3.5-5.1); SODIUM LEVEL 149 MEQ/L (136-145)
[2016-12-07 00:59] LABS: MAGNESIUM LEVEL 1.8 MG/DL (1.8-2.4)
[2016-12-07] MEDS ORDERED: POTASSIUM CHLORIDE 10 MEQ SR TABLET PO ONE (01:00)
[2016-12-07] MEDS: NS 0.45% 1,000 ML IV SCH ×2 (01:28→09:09)
[2016-12-07 01:45] VITALS: BP 121/78
[2016-12-07 06:00] VITALS: BP 119/80
[2016-12-07] MEDS: SODIUM CHLORIDE 0.9% INJ 10 ML SYR IV SCH (06:50)
[2016-12-07 08:00] VITALS: BP 119/81
[2016-12-07 08:30] LABS: BASO % 0.3 % (0.0-1.0); EOS % 0.2 % (0.0-3.0); LARGE UNSTAINED CELL # 0.1 K/mm3 (0.0-0.4); LARGE UNSTAINED CELL % 1.5 % (0.0-4.0); LYMPH # 1.4 K/mm3 (1.5-6.5); LYMPH % 37.7 % (24.0-44.0); MEAN CORPUSCULAR HEMOGLOBIN 29.5 pg (27.0-33.0); MEAN CORPUSCULAR HGB CONC 33.7 g/dl (32.0-36.5); MEAN CORPUSCULAR VOLUME 87.7 fl (80.0-96.0); MONO # 0.2 K/mm3 (0.0-0.8); MONO % 5.8 % (0.0-5.0); NEUTROPHILS # 2.1 K/mm3 (1.8-7.7); NEUTROPHILS % 54.5 % (36.0-66.0); PLATELET COUNT, AUTOMATED 133 k/mm3 (150-450); RED CELL DISTRIBUTION WIDTH 13.7 % (11.5-14.5); WHITE BLOOD COUNT 3.8 K/mm3 (4.0-10.0)
[2016-12-07] MEDS ORDERED: LEVEMIR (INSULIN DETEMIR) 1 UNITS/0.01ML SC SCH (09:00)
[2016-12-07] MEDS: ENOXAPARIN 30 MG/0.3 ML SYR (J1650) SC SCH (09:07)
[2016-12-07] MEDS: HumaLOG INSULIN (NovoLOG) PER UNIT SC SCH ×2 (09:08→12:57)
[2016-12-07 10:41] LABS: ANION GAP 11 MEQ/L (8-16); BLOOD UREA NITROGEN 9 MG/DL (7-18); CALCIUM LEVEL 8.2 MG/DL (8.5-10.1); CARBON DIOXIDE LEVEL 17 MEQ/L (21-32); CHLORIDE LEVEL 113 MEQ/L (98-107); CREATININE FOR GFR 0.71 MG/DL (0.55-1.02); GLOMERULAR FILTRATION RATE > 60.0 (>60); GLUCOSE, FASTING 288 MG/DL (70-105); MAGNESIUM LEVEL 1.8 MG/DL (1.8-2.4); POTASSIUM SERUM 3.6 MEQ/L (3.5-5.1); SODIUM LEVEL 141 MEQ/L (136-145)
--- NOTE | 2016-12-07 13:02 | DSES ---
DATE OF ADMISSION: 12/05/2016 DATE OF DISCHARGE: PRIMARY CARE PROVIDER: Dr. Claire CONSULTATIONS: None. PROCEDURES: None. COMPLICATIONS: None. ADMISSION/DISCHARGE DIAGNOSES: 1. Diabetic ketoacidosis. 2. History of noncompliant diabetes. 3. Recent upper respiratory infection. 4. Leukocytosis, most likely reactive in nature, briefly covered with antibiotics. She remains afebrile with normal white count. BRIEF HOSPITAL COURSE: 31-year-old female with known history of being medically noncompliant with long-standing history of diabetes. She does follow with [facility], operated by [facility] for endocrinology; however, she informed me that she is not on an insulin pump due to her issues with being medically noncompliant. When she presented to the emergency department, according to the history, her father was accompanying her. She had not been compliant with her medications. Her last sugar check was 11/26/2016. She was very lethargic, was difficult to answer questions, found to be in diabetic ketoacidosis with a pH of 6.7, fasting glucose of 731, acetone greater than 46. Her anion gap was 24. Hospitalist was called for admission. She was admitted to the intensive care unit (ICU) and placed on an insulin drip and the diabetic ketoacidosis protocol was followed. Electrolytes were adjusted and her fingersticks sugars, as well as her BMP, did improve gradually. She was downgraded to the medical floor. She did have a urine culture that was negative. Methicillin resistant Staphylococcus aureus (MRSA) screen was negative. Chest x-ray did not demonstrate any active disease and she was started back on her insulin regimen. On day of discharge, she was felt to be back to her baseline and appropriate for home discharge. Her triple lumen was removed from the femoral vein as well, which was placed due to volume contraction and requiring IV fluid resuscitation when she was admitted to the hospital. PHYSICAL EXAMINATION: Today, temperature is 97.8, pulse 80, respiratory 16, blood pressure 119/81, SpO2 is 100% on room air. GENERAL: The patient appears to be in no acute distress. She is alert, oriented. HEENT: Unremarkable. LUNGS: Clear. HEART: Regular rate and rhythm. ABDOMEN: Soft. EXTREMITIES: No edema or calf tenderness. LABORATORY DATA: White count is 3.8, hemoglobin 11.5, platelets are 133,000. Sodium 141, potassium 3.6, chloride 113, bicarbonate 17, anion gap 11, BUN 9, creatinine 0.71, glucose 288, magnesium 1.8. Discharge condition is good. DISPOSITION: Discharge to home. DISCHARGE MEDICATIONS: - NovoLog as directed before food and nightly - Lantus 30 units subcutaneous twice a day - Depo-Provera injection every 3 months DISCHARGE INSTRUCTIONS: Discharge to home. Followup with Dr. Claire in one week, [facility] in the next 1-2 weeks. Activity as tolerated. Consistent carbohydrate diet. Again, she is encouraged to be compliant with her diabetic care. She does voice understanding of the importance of this. She is to return to the emergency department if symptoms should worsen or progress. Discharge took approximately 35 minutes.
--- NOTE | 2016-12-07 16:38 | EDDOCDS ---
Nurse's Notes [facility] Name: Kirit Paez Age: 31 yrs Sex: Female : 1985 Arrival Date: 12/05/2016 Time: 11:33 Bed 1 Private MD: Rach Claire Diagnosis: Type 1 diabetes mellitus with ketoacidosis Presentation: 12/05 11:39 Presenting complaint: Father states: patient has not checked blood sugars since kr3 11/26/16. Yesterday patient refused to come out of her room even with encouragement to eat something. Patient is noncompliant with meds per father and has had multiple admissions related to this. Adult Sepsis Screening: Patient has new or worsening altered mentation (1 point). Patient has a respiratory rate of greater than or equal to 22 (1 point). Systolic blood pressure is greater than 100. Patient has a qSOFA score of 2. No known or suspected infection- Negative Sepsis Screen. Suicide/Homicide risk assessment- the patient denies having any suicidal and/or homicidal ideations and does not present with any other emotional, behavioral or mental health complaints. 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 Transition of care: patient was not received from another setting of care. 11:39 Acuity: DENA Level 2 kr3 11:39 Method Of Arrival: Wheelchair kr3 11:48 Red Flag criteria, patient assessed and taken directly to a bed. kr3 Triage Assessment: 11:43 General: Appears ill, Behavior is cooperative. Pain: Unable to use pain scale. Does not kr3 appear to understand pain scale. HIV screening NA for this visit Offered previously. The patient is triaged at the bedside. See Assessment in Nurses Notes section of ED record. Neurological: Level of Consciousness is listless. Respiratory: Airway is patent Respiratory effort is labored. Derm: Skin is pale, Skin temperature is cool. CLAM TREADER: 11:47 LMP N/A - control method kr3 Historical: - Allergies: No known drug Allergies; - Home Meds: 1. Novolog 100 unit/mL Sub-Q soln AC and HS Sliding Scale 2. Lantus 100 unit/mL Sub-Q soln Unknown twice a day 3. Depo-Provera 150 mg/mL IM syrg 1 mL every 3 mo - PMHx: Diabetes - IDDM: controlled; Hypercholesterolemia; hypokalemia; - PSHx: none; - Social history: Smoking status: Patient states was never smoker of tobacco. No barriers to communication noted, The patient speaks fluent Filipino. - Family history: Not pertinent. - : The pt / caregiver states he / she is not on anticoagulants. Home medication list is obtained from family members. - Exposure Risk Screening:: None identified. Screenin:32 Screening information is obtained from prior medical records. Fall risk: At risk due to srm apparent chemical impairment. Assistance ADL's: unable to assess. Abuse/DV Screen: Unable to Assess. Abuse/DV Screen: The patient / caregiver reports he/she is: pt cannot be assessed for living situation at this time. Nutritional screening: Unable to Assess. Advance Directives: Unable to assess Advance Directive status due to pt condition. home support is inadequate. Assessment: 11:51 General: Appears distressed, Behavior is drowsy. Neurological: Level of Consciousness ja5 is lethargic, obeys commands, Oriented to. Cardiovascular: Capillary refill < 3 seconds Heart tones S1 S2 present. Respiratory: Airway is patent Respiratory effort is labored, Respiratory pattern is tachypnea Breath sounds are clear. Derm: Skin is intact, Skin is Skin is pink, warm & dry. 11:53 Neurological: Oriented to person, place. ja5 13:14 General: Triple lumen central line placed to right groin, patient tolerated well. ja5 Patient still has rapid deep respirations ranging from 24-32 breaths per minute. IV bolus initiated.. 13:38 General: Appears distressed, Behavior is drowsy, listless. Neurological: Level of srm Consciousness is lethargic, obeys commands. Respiratory: Airway is patent Respiratory effort is labored, Respiratory pattern is Kussmaul tachypnea Sputum is Breath sounds are clear bilaterally. 13:38 GI: Abdomen is distended, Bowel sounds present X 4 quads. Abd is soft and non tender X srm 4 quads. :. Derm: Skin is intact, Skin is dry, Skin is pale, Skin temperature is cool. 13:58 General: pt incontinent large amount of urine. linens changed and pt cleaned. srm 13:58 Respiratory: Respiratory pattern is Kussmaul tachypnea. srm 14:32 General: pt was sitting up on stretcher with eyes open for 1-2 mins but then reclosed. srm nods and short responses. FSBS read high- dr frias aware. kussmaul resp chest clear. nsr on monitor. . 15:24 General: Appears in no apparent distress, arouses occasionally but hen falls asleep srm again. resp less labored chest clear. bs+. right femoral central line insertion site clean without redness or swelling. Vital Signs: 11:35 BP 126 / 72 LA Sitting (auto/reg); Pulse 123 LA; Resp 28 S; Temp 92.8(T); Pulse Ox 99% mt4 on R/A; 12:05 Temp 96.5(TE); ja5 12:20 BP 121 / 79 (auto/); jc4 12:21 Pulse 116 MON; Pulse Ox 97% ; jc4 12:26 BP 133 / 79 (auto/); jc4 12:27 Pulse 114 MON; Pulse Ox 97% ; jc4 12:40 Pulse 112 MON; Pulse Ox 98% ; jc4 12:41 BP 134 / 78 (auto/); jc4 12:56 BP 134 / 81 (auto/); jc4 12:59 Pulse 112 MON; Pulse Ox 98% ; jc4 13:11 BP 138 / 77 (auto/); jc4 13:12 Pulse 112 MON; Pulse Ox 98% ; jc4 13:16 Weight 58.97 kg (R); ar3 13:59 BP 134 / 83; Pulse 111; Resp 24; Pulse Ox 96% on 3 lpm NC; srm 15:31 BP 131 / 73; Pulse 112; Resp 22; Temp 94.1(R); Pulse Ox 100% on 3 lpm NC; srm 11:35 PT IS SIGNIFICANT RESPIRATORY DISTRESS. mt4 Vitals: 11:35 Log In Time: December 05, 2016 at 11:33. RN notified that patient meets Red Flag mt4 criteria. ED Course: 11:34 Patient visited by Maris Carpenter. mt4 11:34 Patient moved to Waiting mt4 11:35 Rach Claire is Private Physician. mt4 11:39 Rosanna Lewis,RN is Primary Nurse. kr3 11:39 Nickie Pineda, RN is Primary Nurse. kr3 11:39 Patient moved to 12 kr3 11:42 Triage Initiated kr3 11:50 Inserted saline lock: 22 gauge in right hand. jc4 11:53 Nydia Frias MD is Attending Physician. br1 12:34 [facility] Payment Agreement was scanned into OpenX and attached to record. lg 12:35 Patient visited by Fouzia Jaramillo. nb2 13:00 Assist provider with central line placement of triple lumen in right femoral. Set up ja5 central line tray. Line placed by Nydia Frias MD Placement verified by blood return, Dressed with Tegaderm, Patient tolerated well. Assist provider with chest tube insertion. 13:06 Patient visited by Nydia Frias MD. br1 13:14 Patient visited by Rosanna Lewis RN. ja5 13:31 Patient moved to 1 ar3 13:37 The patient / caregiver is instructed regarding the plan of care and ED course. Report srm received from Ann Pineda rn. auto parts handler on. Pulse ox on. NIBP on. 13:39 Patient visited by Elise Smyth RN. srm 13:43 EKG-ADULT Returned. EDMS 13:44 -Arterial Blood Gas Sent. lb 14:00 Patient visited by Elise Smyth RN. srm 14:29 Mario Craig is Hospitalizing Provider. br1 14:34 Patient visited by Elise Smyth RN. srm 14:36 Patient visited by Elise Smyth RN. srm 14:57 Chest, 1 View Returned. EDMS 15:25 Patient visited by Elise Smyth RN. srm 15:47 Other: vitals was scanned into OpenX and attached to record. ar3 12/06 12:30 T-Sheet-- Draft Copy was scanned into OpenX and attached to record. gb 12:31 Trend VS was scanned into OpenX and attached to record. gb 12:33 ECG/EKG was scanned into OpenX and attached to record. gb Administered Medications: 12/05 13:21 Drug: NS 0.9% 1000 ml [sodium chloride 0.9 % intravenous solution] Route: IV; Rate: jc4 bolus; Site: right femoral; 14:16 Follow up: IV Status: Completed infusion srm 13:30 Drug: Insulin Regular Human 6 units [insulin regular human 100 unit/mL injection mb9 solution (0.06 mL)] {Co-Signature: ld5 (Nayeli Nava RN).} Route: IVP; Site: right femoral; 13:35 Drug: Insulin Regular Human Infusion (0.1units/kg/hr) 6 units/hr [insulin regular human mb9 100 unit/mL injection solution] {Co-Signature: ld5 (Nayeli Nava RN).} Route: IV; Rate: calculated rate; Site: right femoral; 14:12 Drug: Sodium Bicarbonate 1 amp Route: IVP; Site: right femoral; srm 14:17 Drug: NS 0.9% 1000 ml [sodium chloride 0.9 % intravenous solution] Route: IV; Rate: 150 srm mL/hr; Site: right femoral; Attachments: 12:31 Trend VS gb Point of Care Testing: Blood Glucose: 12/05 11:49 Blood Glucose: High; kr3 14:35 Blood Glucose: High; srm 15:31 Blood Glucose: 596 mg/dL; srm Ranges: Intake: 15:34 IV: 1215.00ml; Total: 1215.00ml. srm 15:34 incontinent lrage amount srm RT: 13:44 ABG's drawn from right radial artery allens test done and positive pressure held for 5 lb minutes no bleeding noted pressure bandage applied specimen sent pt. tolerated well. Order Results: Lab Order: CBC with Diff; SPEC'M 12/05/16 12:21 Test: WHITE BLOOD COUNT; Value: 20.4; Range: 4.0-10.0; Abnormal: Above high normal; Units: K/mm3; Status: F Test: RED BLOOD COUNT; Value: 4.87; Range: 4.00-5.40; Units: M/mm3; Status: F Test: HEMOGLOBIN; Value: 15.3; Range: 12.0-16.0; Units: g/dl; Status: F Test: HEMATOCRIT; Value: 48.6; Range: 36.0-47.0; Abnormal: Above high normal; Units: %; Status: F Test: MEAN CORPUSCULAR VOLUME; Value: 99.8; Range: 80.0-96.0; Abnormal: Above high normal; Units: fl; Status: F Test: MEAN CORPUSCULAR HEMOGLOBIN; Value: 31.5; Range: 27.0-33.0; Units: pg; Status: F Test: MEAN CORPUSCULAR HGB CONC; Value: 31.6; Range: 32.0-36.5; Abnormal: Below low normal; Units: g/dl; Status: F Test: RED CELL DISTRIBUTION WIDTH; Value: 13.4; Range: 11.5-14.5; Units: %; Status: F Test: PLATELET COUNT, AUTOMATED; Value: 450; Range: 150-450; Units: k/mm3; Status: F Test: NEUTROPHILS %; Value: 73.1; Range: 36.0-66.0; Abnormal: Above high normal; Units: %; Status: F Test: LYMPH %; Value: 20.5; Range: 24.0-44.0; Abnormal: Below low normal; Units: %; Status: F Test: MONO %; Value: 4.3; Range: 0.0-5.0; Units: %; Status: F Test: EOS %; Value: 0.4; Range: 0.0-3.0; Units: %; Status: F Test: BASO %; Value: 0.6; Range: 0.0-1.0; Units: %; Status: F Test: LARGE UNSTAINED CELL %; Value: 1.1; Range: 0.0-4.0; Units: %; Status: F Test: NEUTROPHILS #; Value: 14.9; Range: 1.8-7.7; Abnormal: Above high normal; Units: K/mm3; Status: F Test: LYMPH #; Value: 4.2; Range: 1.5-6.5; Units: K/mm3; Status: F Test: MONO #; Value: 0.9; Range: 0.0-0.8; Abnormal: Above high normal; Units: K/mm3; Status: F Test: EOS #; Value: 0.1; Range: 0.0-0.50; Units: K/mm3; Status: F Test: BASO #; Value: 0.1; Range: 0.0-0.2; Units: K/mm3; Status: F Test: LARGE UNSTAINED CELL #; Value: 0.2; Range: 0.0-0.4; Units: K/mm3; Status: F Lab Order: [facility]; SPEC'M 12/05/16 12:21 Test: GLUCOSE, FASTING; Value: 736; Range: 70-105; Abnormal: Above upper panic limits; Units: MG/DL; Status: F Test: BLOOD UREA NITROGEN; Value: 31; Range: 7-18; Abnormal: Above high normal; Units: MG/DL; Status: F Test: CREATININE FOR GFR; Value: 1.57; Range: 0.55-1.02; Abnormal: Above high normal; Units: MG/DL; Status: F Test: SODIUM LEVEL; Range: 136-145; Units: MEQ/L; Status: I Test: POTASSIUM SERUM; Range: 3.5-5.1; Units: MEQ/L; Status: I Test: CHLORIDE LEVEL; Range: 98-107; Units: MEQ/L; Status: I Test: CARBON DIOXIDE LEVEL; Range: 21-32; Units: MEQ/L; Status: I Test: ANION GAP; Range: 8-16; Units: MEQ/L; Status: I Test: CALCIUM LEVEL; Range: 8.5-10.1; Units: MG/DL; Status: I Test: GLOMERULAR FILTRATION RATE; Value: 41.5; Range: >60; Abnormal: Below low normal; Status: F Test: SODIUM LEVEL; Value: 133; Range: 136-145; Abnormal: Below low normal; Units: MEQ/L; Status: F Test: POTASSIUM SERUM; Value: 5.4; Range: 3.5-5.1; Abnormal: Above high normal; Units: MEQ/L; Status: F Test: CHLORIDE LEVEL; Value: 104; Range: 98-107; Units: MEQ/L; Status: F Test: CARBON DIOXIDE LEVEL; Value: 5; Range: 21-32; Abnormal: Below low normal; Units: MEQ/L; Status: F Test: ANION GAP; Value: 24; Range: 8-16; Abnormal: Above high normal; Units: MEQ/L; Status: F Test: CALCIUM LEVEL; Value: 9.1; Range: 8.5-10.1; Units: MG/DL; Status: F Test Note: ; Units are mL/min/1.73 m2 Chronic Kidney Disease Staging per NKF: Stage I & II GFR >=60 Normal to Mildly Decreased Stage III GFR 30-59 Moderately Decreased Stage IV GFR 15-29 Severely Decreased Stage V GFR <15 Very Little GFR Left ESRD GFR <15 on ASSISTANT GOLF COURSE SUPERINTENDENT Lab Order: Liver Profile; SPEC'M 12/05/16 12:21 Test: AST/SGOT; Value: 22; Range: 15-37; Units: U/L; Status: F Test: ALT/SGPT; Value: 27; Range: 12-78; Units: U/L; Status: F Test: ALKALINE PHOSPHATASE; Value: 134; Range: 45-117; Abnormal: Above high normal; Units: U/L; Status: F Test: BILIRUBIN,TOTAL; Value: 0.4; Range: 0.2-1.0; Units: MG/DL; Status: F Test: BILIRUBIN,DIRECT; Value: 0.1; Range: 0.0-0.2; Units: MG/DL; Status: F Test: TOTAL PROTEIN; Value: 8.7; Range: 6.4-8.2; Abnormal: Above high normal; Units: GM/DL; Status: F Test: ALBUMIN; Value: 4.0; Range: 3.2-5.2; Units: GM/DL; Status: F Test: ALBUMIN/GLOBULIN RATIO; Value: 0.85; Range: 1.00-1.93; Abnormal: Below low normal; Status: F Lab Order: Acetone Level; [facility]' 12/05/16 12:21 Test: ACETONE/KETONE; Value: > 46.00; Range: <2.81; Abnormal: Above high normal; Units: MG/DL; Status: F Lab Order: HCG,Serum Qualitative; [facility] 12/05/16 12:21 Test: HCG, SERUM QUALITATIVE; Value: NEGATIVE; Range: NEGATIVE; Status: F Lab Order: -Arterial Blood Gas; [facility] 12/05/16 13:39 Test: ABG pH (ARTERIAL); Value: 6.721; Range: 7.350-7.450; Abnormal: Critical Low; Units: UNITS; Status: F Test: ABG PARTIAL PRESSURE CO2; Value: 11.5; Range: 35.0-45.0; Abnormal: Critical Low; Units: mmHg; Status: F Test: ABG PARTIAL PRESSURE O2; Value: 182.2; Range: 75.0-100.0; Abnormal: Above high normal; Units: mmHg; Status: F Test: ABG TOTAL CO2; Value: 1.8; Range: 22.0-29.0; Abnormal: Below low normal; Units: MEQ/L; Status: F Test: ABG HCO3; Value: 1.5; Range: 22.0-26.0; Abnormal: Below low normal; Units: MEQ/L; Status: F Test: ABG BASE EXCESS; Value: -34.0; Range: -2.0-2.0; Abnormal: Below low normal; Status: F Test: ABG STANDARD HCO3; Value: 3.7; Range: 22.0-26.0; Abnormal: Below low normal; Units: MEQ/L; Status: F Test: ABG O2 SATURATION; Value: 98.6; Range: 95.0-99.0; Units: %; Status: F Test: ABG DEVICE; Value: NASAL ALHAJI; Status: F Lab Order: HEMOGLOBIN A1C; SPEC'M 12/05/16 12:21 Test: HEMOGLOBIN A1c; Value: 12.4; Range: 4.5-6.2; Abnormal: Above high normal; Units: %; Status: F Test: ESTIMATED AVERAGE GLUCOSE; Value: 309; Range: 60-110; Abnormal: Above high normal; Units: MG/DL; Status: F Lab Order: Fingerstick Blood Sugar; SPEC'M 12/05/16 15:30 Test: BEDSIDE GLUCOSE; Value: 596; Range: 70-105; Abnormal: Above upper panic limits; Units: MG/DL; Status: F Test Note: ; Dr Order not to Draw Radiology Order: EKG-ADULT Test: EKG-ADULT REASON FOR EXAMINATION: dysrhythmia; Stationary ECG Study; [facility] - ED; ; Test Date: 2016-12-05; [facility] Department:; Room: -; Gender: F Power Tong Operator: amanda; : 1985 Requested By: NYDIA Luz; Order Number: [id number] Reading MD: Megan Santillan; Measurements; Intervals [place]; Rate: 114 P: 65; NH: 136 QRS: 36; QRSD: 94 T: 17; QT: 326; QTc: 450; Interpretive Statements; SINUS TACHYCARDIA; NONSPECIFIC T-WAVE ABNORMALITY; ABNORMAL RHYTHM ECG; ; Electronically Signed On 12-05-2016 13:18:46 EST by Megan Santillan; Radiology Order: Chest, 1 View Test: Chest, 1 View REASON FOR EXAMINATION: Shortness of Breath; AP portable semi upright chest radiograph.; ; Indication: Shortness of breath.; ; Comparison: Portable chest 08/29/2015.; ; ; The cardiac silhouette and mediastinal silhouette are within normal limits. Lungs; are clear. Bones and soft tissues within normal limits.; ; IMPRESSION:; Negative portable chest radiograph.; ; ; ; ; ; Unreviewed; Outcome: 14:29 Decision to Hospitalize by Provider. br1 15:36 Discharge Assessment: patient administered narcotics - no. The following High Risk [facility] Discharge criteria are identified: None. Admitted to ICU accompanied by nurse, accompanied by tech, via stretcher, with oxygen, on monitor, with chart. Condition: stable critical. No special radiology studies were completed. Property :Personal belongings accompany Pt. 15:37 Patient left the ED. [facility] Signatures: Dispatcher [employer] EDMS Elise Smyth, RN RN srm Daishajoseph, Spring, Reg Reg gb Ganbryanna, Shantellee, Reg Reg lg Kerry,Rosemary lb Vanesa Barber,RN RN kr3 Nydia Frias MD MD br1 Maris Carpenter mt4 Kristi Quintana, STAGE MANAGER STAGE MANAGER ar3 Nickie Pineda RN RN jc4 Femi John,RN RN mb9 Fouzia Jaramillo Jessica,RN RN ja5 Nayeli Nava RN ld5 Chart Complete MTDD
--- NOTE | 2016-12-07 16:38 | EDDOCDS ---
Physician Documentation [facility] Name: Carolina Paez Age: 31 yrs Sex: Female : 1985 Arrival Date: 12/05/2016 Time: 11:33 Bed 1 Private MD: Rach Claire Disposition: 12/05/16 14:29 Hospitalization ordered by Mario Craig for Inpatient Admission. Preliminary diagnosis is Type 1 diabetes mellitus with ketoacidosis. - Bed requested for M ICU. - Status is Inpatient Admission. srm - Condition is Stable. - Problem is new. - Symptoms are unchanged. Historical: - Allergies: No known drug Allergies; - Home Meds: 1. Novolog 100 unit/mL Sub-Q soln AC and HS Sliding Scale 2. Lantus 100 unit/mL Sub-Q soln Unknown twice a day 3. Depo-Provera 150 mg/mL IM syrg 1 mL every 3 mo - PMHx: Diabetes - IDDM: controlled; Hypercholesterolemia; hypokalemia; - PSHx: none; - Social history: Smoking status: Patient states was never smoker of tobacco. No barriers to communication noted, The patient speaks fluent Wolof. - Family history: Not pertinent. - : The pt / caregiver states he / she is not on anticoagulants. Home medication list is obtained from family members. - Exposure Risk Screening:: None identified. 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: 12/05 11:47 LMP N/A - control method kr3 Vital Signs: 11:35 BP 126 / 72 LA Sitting (auto/reg); Pulse 123 LA; Resp 28 S; Temp 92.8(T); Pulse Ox 99% mt4 on R/A; 12:05 Temp 96.5(TE); ja5 12:20 BP 121 / 79 (auto/); jc4 12:21 Pulse 116 MON; Pulse Ox 97% ; jc4 12:26 BP 133 / 79 (auto/); jc4 12:27 Pulse 114 MON; Pulse Ox 97% ; jc4 12:40 Pulse 112 MON; Pulse Ox 98% ; jc4 12:41 BP 134 / 78 (auto/); jc4 12:56 BP 134 / 81 (auto/); jc4 12:59 Pulse 112 MON; Pulse Ox 98% ; jc4 13:11 BP 138 / 77 (auto/); jc4 13:12 Pulse 112 MON; Pulse Ox 98% ; jc4 13:16 Weight 58.97 kg / 130.01 lbs (R); ar3 13:59 BP 134 / 83; Pulse 111; Resp 24; Pulse Ox 96% on 3 lpm NC; srm 15:31 BP 131 / 73; Pulse 112; Resp 22; Temp 94.1(R); Pulse Ox 100% on 3 lpm NC; srm 11:35 PT IS SIGNIFICANT RESPIRATORY DISTRESS. mt4 Procedures: 13:20 Peripheral line: by aseptic technique a peripheral line was placed in the right br1 external jugular vein, Attempted 20 gauge Right EJ peripheral IV placement in neck, unsuccessful. Pressure held, hemostatic.. 13:21 Central Line: the site was prepped with Betadine, in sterile fashion, a triple lumen br1 catheter was inserted, in the right femoral vein, placement was verified, by blood return, the site was dressed with Tegaderm, using sterile technique, the patient tolerated the procedure, well. MDM: 11:55 IV Saline Lock ordered. br1 11:55 Catalytic Case Operator/Pulse Ox/q 30 min VS ordered. br1 11:56 CBC with Diff Ordered. EDMS 11:56 BMP Ordered. EDMS 11:56 Liver Profile Ordered. EDMS 11:56 Acetone Level Ordered. EDMS 11:56 HCG,Serum Qualitative Ordered. EDMS 11:56 ECG WITH READING ER PHYS+CARDIAG ordered. EDMS 12:03 NS 0.9% 1000 ml IV at bolus once ordered. br1 12:34 [facility] [place] Agreement was scanned into [employer] and attached to record. lg 13:13 CBC with Diff Reviewed. br1 13:13 BMP Reviewed. br1 13:13 Liver Profile Reviewed. br1 13:13 Acetone Level Reviewed. br1 13:13 HCG,Serum Qualitative Reviewed. br1 13:16 Insulin Regular Human 6 units IVP once ordered. br1 13:17 Insulin Regular Human Infusion (0.1units/kg/hr) 6 units/hr IV at calculated rate Per br1 protocol ordered. 13:18 Call Respiratory ordered. br1 13:18 Chest, 1 View Ordered. EDMS 13:18 Oxygen at 2L/min via NC ordered. br1 13:19 Call Respiratory complete. ar3 13:19 -Arterial Blood Gas Ordered. EDMS 13:20 Accucheck hourly ordered. br1 13:20 BED REQUEST+ADM ordered. EDMS 13:23 NS 0.9% 1000 ml IV at 150 mL/hr continuous ordered. br1 13:32 Urinalysis Ordered. EDMS 13:32 Urine Culture Ordered. EDMS 14:09 Sodium Bicarbonate 1 amp IVP once ordered. br1 14:09 -Arterial Blood Gas Reviewed. br1 14:09 EKG-ADULT Reviewed. br1 14:57 ACETONE/KETONE Ordered. EDMS 14:58 BASIC METABOLIC PROFILE Ordered. EDMS 14:58 BASIC METABOLIC PROFILE Ordered. EDMS 14:58 BASIC METABOLIC PROFILE Ordered. EDMS 14:59 Admission / Observation Status ordered. EDMS 14:59 NPO DIET ordered. EDMS 15:05 HEMOGLOBIN A1C Ordered. EDMS 15:38 MRSA SCREEN Ordered. EDMS 15:40 Fingerstick Blood Sugar Ordered. EDMS 15:47 Other: vitals was scanned into [employer] and attached to record. ar3 12/06 12:30 T-Sheet-- Draft Copy was scanned into [employer] and attached to record. gb 12:31 Trend VS was scanned into [employer] and attached to record. gb 12:33 ECG/EKG was scanned into [employer] and attached to record. gb Point of Care Testing: Blood Glucose: 12/05 11:49 Blood Glucose: High; kr3 14:35 Blood Glucose: High; srm 15:31 Blood Glucose: 596 mg/dL; srm Ranges: Administered Medications: 13:21 Drug: NS 0.9% 1000 ml [sodium chloride 0.9 % intravenous solution] Route: IV; Rate: jc4 bolus; Site: right femoral; 14:16 Follow up: IV Status: Completed infusion srm 13:30 Drug: Insulin Regular Human 6 units [insulin regular human 100 unit/mL injection mb9 solution (0.06 mL)] {Co-Signature: ld5 (Nayeli Nava RN).} Route: IVP; Site: right femoral; 13:35 Drug: Insulin Regular Human Infusion (0.1units/kg/hr) 6 units/hr [insulin regular human mb9 100 unit/mL injection solution] {Co-Signature: ld5 (Nayeli Nava RN).} Route: IV; Rate: calculated rate; Site: right femoral; 14:12 Drug: Sodium Bicarbonate 1 amp Route: IVP; Site: right femoral; srm 14:17 Drug: NS 0.9% 1000 ml [sodium chloride 0.9 % intravenous solution] Route: IV; Rate: 150 srm mL/hr; Site: right femoral; Signatures: Dispatcher [employer] EDPreet Holbrook, RN RN Elise Leon RN RN srm Spring Flynn, Reg Reg gb Wolf Lundberg, Reg Reg lg Vanesa Barber RN RN kr3 Elia Menard MD MD br1 Kristi Quintana, TECHNICAL STENOGRAPHER TECHNICAL STENOGRAPHER ar3 Nickie Pineda RN RN jc4 Femi John RN mb9 Nayeli Nava RN ld5 The chart was reviewed and I authenticate all verbal orders and agree with the evaluation and treatment provided.Corrections: (The following items were deleted from the chart) 15:07 14:57 HEMOGLOBIN A1C ordered. EDMS EDMS Attachments: 12:34 [facility] [place] Agreement lg 12/06 12:30 T-Sheet-- Draft Copy gb 12:33 ECG/EKG gb Chart Complete MTDD
--- NOTE | 2016-12-07 16:38 | EDDOCDS ---
Physician Documentation [facility], [place] Name: Carolina Paez Age: 31 yrs Sex: Female : 1985 Arrival Date: 12/05/2016 Time: 11:33 Bed 1 Private MD: Rach Claire Disposition: 12/05/16 14:29 Hospitalization ordered by Mario Craig for Inpatient Admission. Preliminary diagnosis is Type 1 diabetes mellitus with ketoacidosis. - Bed requested for M ICU. - Status is Inpatient Admission. srm - Condition is Stable. - Problem is new. - Symptoms are unchanged. Historical: - Allergies: No known drug Allergies; - Home Meds: 1. Novolog 100 unit/mL Sub-Q soln AC and HS Sliding Scale 2. Lantus 100 unit/mL Sub-Q soln Unknown twice a day 3. Depo-Provera 150 mg/mL IM syrg 1 mL every 3 mo - PMHx: Diabetes - IDDM: controlled; Hypercholesterolemia; hypokalemia; - PSHx: none; - Social history: Smoking status: Patient states was never smoker of tobacco. No barriers to communication noted, The patient speaks fluent Bulgarian. - Family history: Not pertinent. - : The pt / caregiver states he / she is not on anticoagulants. Home medication list is obtained from family members. - Exposure Risk Screening:: None identified. 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 LMP N/A - control method kr3 Vital Signs: 11:35 BP 126 / 72 LA Sitting (auto/reg); Pulse 123 LA; Resp 28 S; Temp 92.8(T); Pulse Ox 99% mt4 on R/A; 12:05 Temp 96.5(TE); ja5 12:20 BP 121 / 79 (auto/); jc4 12:21 Pulse 116 MON; Pulse Ox 97% ; jc4 12:26 BP 133 / 79 (auto/); jc4 12:27 Pulse 114 MON; Pulse Ox 97% ; jc4 12:40 Pulse 112 MON; Pulse Ox 98% ; jc4 12:41 BP 134 / 78 (auto/); jc4 12:56 BP 134 / 81 (auto/); jc4 12:59 Pulse 112 MON; Pulse Ox 98% ; jc4 13:11 BP 138 / 77 (auto/); jc4 13:12 Pulse 112 MON; Pulse Ox 98% ; jc4 13:16 Weight 58.97 kg / 130.01 lbs (R); ar3 13:59 BP 134 / 83; Pulse 111; Resp 24; Pulse Ox 96% on 3 lpm NC; srm 15:31 BP 131 / 73; Pulse 112; Resp 22; Temp 94.1(R); Pulse Ox 100% on 3 lpm NC; srm 11:35 PT IS SIGNIFICANT RESPIRATORY DISTRESS. mt4 Procedures: 13:20 Peripheral line: by aseptic technique a peripheral line was placed in the right br1 external jugular vein, Attempted 20 gauge Right EJ peripheral IV placement in neck, unsuccessful. Pressure held, hemostatic.. 13:21 Central Line: the site was prepped with Betadine, in sterile fashion, a triple lumen br1 catheter was inserted, in the right femoral vein, placement was verified, by blood return, the site was dressed with Tegaderm, using sterile technique, the patient tolerated the procedure, well. MDM: 11:55 IV Saline Lock ordered. br1 11:55 Customer Retention Representative/Pulse Ox/q 30 min VS ordered. br1 11:56 CBC with Diff Ordered. EDMS 11:56 BMP Ordered. EDMS 11:56 Liver Profile Ordered. EDMS 11:56 Acetone Level Ordered. EDMS 11:56 HCG,Serum Qualitative Ordered. EDMS 11:56 ECG WITH READING ER PHYS+CARDIAG ordered. EDMS 12:03 NS 0.9% 1000 ml IV at bolus once ordered. br1 12:34 [facility] Payment Agreement was scanned into [employer] and attached to record. lg 13:13 CBC with Diff Reviewed. br1 13:13 BMP Reviewed. br1 13:13 Liver Profile Reviewed. br1 13:13 Acetone Level Reviewed. br1 13:13 HCG,Serum Qualitative Reviewed. br1 13:16 Insulin Regular Human 6 units IVP once ordered. br1 13:17 Insulin Regular Human Infusion (0.1units/kg/hr) 6 units/hr IV at calculated rate Per br1 protocol ordered. 13:18 Call Respiratory ordered. br1 13:18 Chest, 1 View Ordered. EDMS 13:18 Oxygen at 2L/min via NC ordered. br1 13:19 Call Respiratory complete. ar3 13:19 -Arterial Blood Gas Ordered. EDMS 13:20 Accucheck hourly ordered. br1 13:20 BED REQUEST+ADM ordered. EDMS 13:23 NS 0.9% 1000 ml IV at 150 mL/hr continuous ordered. br1 13:32 Urinalysis Ordered. EDMS 13:32 Urine Culture Ordered. EDMS 14:09 Sodium Bicarbonate 1 amp IVP once ordered. br1 14:09 -Arterial Blood Gas Reviewed. br1 14:09 EKG-ADULT Reviewed. br1 14:57 ACETONE/KETONE Ordered. EDMS 14:58 BASIC METABOLIC PROFILE Ordered. EDMS 14:58 BASIC METABOLIC PROFILE Ordered. EDMS 14:58 BASIC METABOLIC PROFILE Ordered. EDMS 14:59 Admission / Observation Status ordered. EDMS 14:59 NPO DIET ordered. EDMS 15:05 HEMOGLOBIN A1C Ordered. EDMS 15:38 MRSA SCREEN Ordered. EDMS 15:40 Fingerstick Blood Sugar Ordered. EDMS 15:47 Other: vitals was scanned into [employer] and attached to record. ar3 12/06 12:30 T-Sheet-- Draft Copy was scanned into [employer] and attached to record. gb 12:31 Trend VS was scanned into [employer] and attached to record. gb 12:33 ECG/EKG was scanned into [employer] and attached to record. gb Point of Care Testing: Blood Glucose: 12/05 11:49 Blood Glucose: High; kr3 14:35 Blood Glucose: High; srm 15:31 Blood Glucose: 596 mg/dL; srm Ranges: Administered Medications: 13:21 Drug: NS 0.9% 1000 ml [sodium chloride 0.9 % intravenous solution] Route: IV; Rate: jc4 bolus; Site: right femoral; 14:16 Follow up: IV Status: Completed infusion srm 13:30 Drug: Insulin Regular Human 6 units [insulin regular human 100 unit/mL injection mb9 solution (0.06 mL)] {Co-Signature: ld5 (Nayeli Nava RN).} Route: IVP; Site: right femoral; 13:35 Drug: Insulin Regular Human Infusion (0.1units/kg/hr) 6 units/hr [insulin regular human mb9 100 unit/mL injection solution] {Co-Signature: ld5 (Nayeli Nava RN).} Route: IV; Rate: calculated rate; Site: right femoral; 14:12 Drug: Sodium Bicarbonate 1 amp Route: IVP; Site: right femoral; srm 14:17 Drug: NS 0.9% 1000 ml [sodium chloride 0.9 % intravenous solution] Route: IV; Rate: 150 srm mL/hr; Site: right femoral; Signatures: Dispatcher [employer] EDPreet Holbrook, RN RN Elise Leon RN RN srm Spring Flynn, Reg Reg gb Wolf Lundberg, Reg Reg lg Vanesa Barber RN RN kr3 Elia Menard MD MD br1 Kristi Quintana, LABORER TANBARK LABORER TANBARK ar3 Nickie Pineda RN RN jc4 Femi John RN mb9 Nayeli Nava RN ld5 The chart was reviewed and I authenticate all verbal orders and agree with the evaluation and treatment provided.Corrections: (The following items were deleted from the chart) 15:07 14:57 HEMOGLOBIN A1C ordered. EDMS EDMS Attachments: 12:34 [facility] Payment Agreement lg 12/06 12:30 T-Sheet-- Draft Copy gb 12:33 ECG/EKG gb Chart Complete MTDD
== END 2016-12-07 14:30 | disposition home or self-care (01) | DRG 420 ==
LOC: M ED 11:33 → M ED INP 14:45 → M ICU 15:44 → M PED 12-07 01:45
PROVIDERS: ADMIT Internal Medicine; ATTEND Hospitalist
DX: E10.10 Type 1 diabetes mellitus with ketoacidosis without coma (principal); N17.9 Acute kidney failure, unspecified; Z91.19 Patient's noncompliance with other medical treatment and regimen; D72.829 Elevated white blood cell count, unspecified; Z79.4 Long term (current) use of insulin; E78.5 Hyperlipidemia, unspecified

== ENCOUNTER 2016-12-13 09:49 | Outpatient (RCR) | payer BC | END 2016-12-14 | LOC: M PT 09:49 | PROVIDERS: ATTEND Otolaryngology | DX: Z51.89 Encounter for other specified aftercare (principal); M26.69 Other specified disorders of temporomandibular joint ==

== ENCOUNTER 2016-12-16 09:56 | Outpatient (RCR) | payer BC | END 2017-01-11 | LOC: M PT 09:56 | PROVIDERS: ATTEND Otolaryngology | DX: Z51.89 Encounter for other specified aftercare (principal); M26.609 Unspecified temporomandibular joint disorder, unspecified side ==

== ENCOUNTER 2016-12-29 13:28 | Emergency (ER) | payer BC ==
[2016-12-29 15:12] LABS: BASO % 0.4 % (0.0-1.0); EOS % 0.4 % (0.0-3.0); LARGE UNSTAINED CELL # 0.1 K/mm3 (0.0-0.4); LARGE UNSTAINED CELL % 1.7 % (0.0-4.0); LYMPH # 1.5 K/mm3 (1.5-6.5); LYMPH % 31.7 % (24.0-44.0); MEAN CORPUSCULAR HEMOGLOBIN 29.8 pg (27.0-33.0); MEAN CORPUSCULAR HGB CONC 34.2 g/dl (32.0-36.5); MEAN CORPUSCULAR VOLUME 87.2 fl (80.0-96.0); MONO # 0.2 K/mm3 (0.0-0.8); MONO % 3.4 % (0.0-5.0); NEUTROPHILS # 2.9 K/mm3 (1.8-7.7); NEUTROPHILS % 62.3 % (36.0-66.0); PLATELET COUNT, AUTOMATED 268 k/mm3 (150-450); RED CELL DISTRIBUTION WIDTH 13.6 % (11.5-14.5); WHITE BLOOD COUNT 4.7 K/mm3 (4.0-10.0)
[2016-12-29] MEDS ORDERED: ALBUTEROL 90 MCG/ACT 8GM HFA INHALER As Ordered ONE (15:26)
[2016-12-29 15:33] LABS: CALCIUM LEVEL 10.2 MG/DL (8.5-10.1); CREATININE FOR GFR 1.2 MG/DL (0.55-1.02); GLOMERULAR FILTRATION RATE 56.5 (>60); POTASSIUM SERUM 3.6 MEQ/L (3.5-5.1)
--- NOTE | 2016-12-29 16:11 | EDDOCDS ---
Physician Documentation [facility] Name: Carolina Paez Age: 31 yrs Sex: Female : 1985 Arrival Date: 12/29/2016 Time: 13:28 Bed I4 / M4 Private MD: NO PRIMARY PHYSICIAN, . Disposition: 12/29/16 15:50 Discharged to Home/Self Care. Impression: Acute bronchitis, Acute upper respiratory infection, unspecified, Diabetes mellitus due to underlying condition. - Condition is Stable. - Discharge Instructions: Acute Bronchitis, Diabetes Mellitus and Food. - Medication Reconciliation form. - [facility] up: [facility]; When: Call to arrange an appointment; Reason: To establish care. - Problem is an ongoing problem. - Symptoms have improved. Historical: - Allergies: Bleach (Sodium Hypochlorite); dogs; - Home Meds: 1. Depo-Provera 150 mg/mL IM syrg 1 mL every 3 mo 2. Lantus 100 unit/mL Sub-Q soln Unknown twice a day 25 units at night and 22 units in the morning 3. Novolog 100 unit/mL Sub-Q soln AC and HS Sliding Scale - PMHx: Diabetes - IDDM: controlled; Hypercholesterolemia; hypokalemia; - PSHx: LEEP Procedure; Colonoscopy; - Social history: Smoking status: Patient states was never smoker of tobacco. No barriers to communication noted, The patient speaks fluent Honduran. - Family history: Not pertinent. - : The pt / caregiver states he / she is not on anticoagulants. Home medication list is obtained from the patient. - Exposure Risk Screening:: None identified. 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 4 in. (162.56 cm) (R); Pain 2/10; 15:55 BP 128 / 78; Pulse 107; Resp 18; Temp 98.4(O); Pulse Ox 100% on R/A; Pain 0/10; jrd 13:30 Body Mass Index 23.00 (60.78 kg, 162.56 cm) gr2 MDM: 13:51 Fingerstick Blood Sugar Ordered. EDMS 14:46 Misc Fact Checker Order ordered. cc10 14:46 Call Respiratory ordered. cc10 14:46 MDI teaching with Spacer ordered. cc10 14:46 Ventolin Inhaler 2 puffs Inhalation once ordered. cc10 14:46 IV Saline Lock ordered. cc10 14:46 NS 0.9% 1000 ml IV at bolus once ordered. cc10 14:47 Fingerstick Blood Sugar Reviewed. cc10 14:48 CBC with Diff Ordered. EDMS 14:48 BMP Ordered. EDMS 14:48 UA Ordered. EDMS 15:13 Call Respiratory complete. jmk 15:26 UA Reviewed. cc10 15:26 CBC with Diff Reviewed. cc10 15:34 Misc Fact Checker Order complete. jmk 15:41 BMP Reviewed. cc10 15:45 Financial registration complete. b 15:58 [facility] Payment Agreement was scanned into [employer] and attached to record. [facility] Point of Care Testing: Blood Glucose: 13:31 Blood Glucose: 271 mg/dL; ms18 Ranges: Administered Medications: 15:21 Drug: NS 0.9% 1000 ml Route: IV; Rate: bolus; Site: right antecubital; jmk 15:49 Drug: Ventolin 2 puffs [Ventolin HFA 90 mcg/actuation aerosol inhaler (2 puffs)] Route: cs15 Inhalation; Signatures: Dispatcher [employer] EDSimón Fuentes,RN Ta Long RN RN jmb [place]iski, Colin, PACecilia PA-C cc10 Yudy Enriquez RN RN ms18 Macie Montanez Caleb RT cs15 The chart was reviewed and I authenticate all verbal orders and agree with the evaluation and treatment provided.Attachments: 15:58 [facility] Payment Agreement gj MTDD
--- NOTE | 2016-12-29 16:11 | EDDOCDS ---
Nurse's Notes [facility] Name: Carolina Paez Age: 31 yrs Sex: Female : 1985 Arrival Date: 12/29/2016 Time: 13:28 Bed I4 / M4 Private MD: NO PRIMARY PHYSICIAN, . Diagnosis: Acute bronchitis;Acute upper respiratory infection, unspecified;Diabetes mellitus due to underlying condition Presentation: 12/29 13:31 Presenting complaint: Patient states: that she has an upper respiratory infection and ms18 has been having high blood sugar. Pt states that her blood sugar this morning when she woke up was over 600 and pt states that at 1230 her BGL was 358. Adult Sepsis Screening: The patient does not have new or worsening altered mentation. Patient's respiratory rate is less than 22. Systolic blood pressure is greater than 100. Patient has a qSOFA score of 0- Negative Sepsis Screen. Suicide/Homicide risk assessment- the patient denies having any suicidal and/or homicidal ideations and does not present with any other emotional, behavioral or mental health complaints. Status: Patient is not a children's service supervisor or dependent. Transition of care: patient was not received from another setting of care. 13:31 Acuity: DENA Level 3 ms18 13:31 Method Of Arrival: Walkin/Carried/Asstd ms18 Triage Assessment: 13:38 General: Appears in no apparent distress, ill, Behavior is appropriate for age, ms18 cooperative. Pain: Denies pain. HIV screening NA for this visit Offered previously. Neurological: Level of Consciousness is awake, alert, obeys commands, Oriented to person, place, time. Respiratory: Airway is patent Respiratory effort is even, unlabored. Derm: Skin is pink, warm & dry. normal. 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 Depo-Provera 150 mg/mL IM syrg 1 mL every 3 mo 2. Lantus 100 unit/mL Sub-Q soln Unknown twice a day 25 units at night and 22 units in the morning 3. Novolog 100 unit/mL Sub-Q soln AC and HS Sliding Scale - PMHx: Diabetes - IDDM: controlled; Hypercholesterolemia; hypokalemia; - PSHx: LEEP Procedure; Colonoscopy; - Social history: Smoking status: Patient states was never smoker of tobacco. No barriers to communication noted, The patient speaks fluent Puerto Rican. - Family history: Not pertinent. - : The pt / caregiver states he / she is not on anticoagulants. Home medication list is obtained from the patient. - Exposure Risk Screening:: None identified. Screenin:07 Screening information is obtained from the patient. Fall risk: No risks identified. jmb Assistance ADL's: requires no assistance with activities of daily living. Abuse/DV Screen: The patient / caregiver reports he/she is: not in a situation that causes fear, pain or injury. Nutritional screening: No deficits noted. Advance Directives: Currently, there is no health care proxy. There is no active DNR order. There is no living will. There is no Power of Audio Narrator. home support is adequate. Assessment: 15:10 General: Appears in no apparent distress, comfortable, Behavior is appropriate for age, ead cooperative, pleasant. Pain: Denies pain. Neurological: Level of Consciousness is awake, alert, obeys commands, Oriented to person, place, time. Respiratory: Airway is patent Respiratory effort is even, unlabored, Breath sounds are clear bilaterally. Respiratory: Reports cough that is. GI: Denies nausea, vomiting, pain. Derm: Skin is pink, warm & dry. 16:07 General: Patient instructed on discharge, patient asked if there were any questions jmb regarding discharge, patient stated no. IV discontinued per hospital policy. Patient signed discharge instructions. Patient discharged in stable condition.. Vital Signs: 13:30 BP 133 / 84; Pulse 117; Resp 18 S; Temp 98.2(O); Pulse Ox 98% on R/A; Weight 60.78 kg gr2 (R); Height 5 ft. 4 in. (162.56 cm) (R); Pain 2/10; 15:55 BP 128 / 78; Pulse 107; Resp 18; Temp 98.4(O); Pulse Ox 100% on R/A; Pain 0/10; jrd 13:30 Body Mass Index 23.00 (60.78 kg, 162.56 cm) gr2 Vitals: 13:30 Log In Time: December 29, 2016 at 13:30. gr2 ED Course: 13:29 Patient visited by Adore Wiggins. gr2 13:29 NO PRIMARY PHYSICIAN, . is Private Physician. gr2 13:29 Patient moved to Waiting gr2 13:31 Patient visited by Adore Wiggins. gr2 13:31 Patient moved to Pre RCE gr2 13:36 Triage Initiated ms18 14:22 Patient moved to Triage 2 mlb1 14:35 [facility] cc10 14:35 Elia Menard MD is Attending Physician. cc10 14:35 Patient visited by Tom Moon PA-C. cc10 14:35 Patient visited by Tom Moon PA-C. cc10 14:52 Patient moved to I4 / M4 mb9 14:56 UA Sent. ms18 15:09 Patient visited by Darcy Gonzales RN. ead 15:10 BMP Sent. ead 15:10 CBC with Diff Sent. ead 15:10 Inserted peripheral IV: 22gauge IV in left upper arm. and blood collected. Patient ead tolerated the procedure well. 15:50 [facility] is Referral Physician. cc10 15:56 Patient visited by Rod Salazar PCA. jrd 15:58 [facility] Payment Agreement was scanned into [employer] and attached to record. gjb 16:07 The patient / caregiver is instructed regarding the plan of care and ED course. jmb 16:07 Discontinued lock intact, bleeding controlled, pressure dressing applied, No jmb redness/swelling at site. No procedures done that require assistance. Administered Medications: 15:21 Drug: NS 0.9% 1000 ml Route: IV; Rate: bolus; Site: right antecubital; jmk 15:49 Drug: Ventolin 2 puffs [Ventolin HFA 90 mcg/actuation aerosol inhaler (2 puffs)] Route: cs15 Inhalation; Point of Care Testing: Blood Glucose: 13:31 Blood Glucose: 271 mg/dL; ms18 Ranges: RT: 15:49 Initial Med Neb Given as ordered. Respiratory: Breath sounds are clear bilaterally. cs15 Order Results: Lab Order: Fingerstick Blood Sugar; SPEC'M 12/29/16 13:36 Test: BEDSIDE GLUCOSE; Value: 271; Range: 70-105; Abnormal: Above high normal; Units: MG/DL; Status: F Lab Order: CBC with Diff; SPEC'M 12/29/16 15:07 Test: WHITE BLOOD COUNT; Value: 4.7; Range: 4.0-10.0; Units: K/mm3; Status: F Test: RED BLOOD COUNT; Value: 4.95; Range: 4.00-5.40; Units: M/mm3; Status: F Test: HEMOGLOBIN; Value: 14.8; Range: 12.0-16.0; Units: g/dl; Status: F Test: HEMATOCRIT; Value: 43.2; Range: 36.0-47.0; Units: %; Status: F Test: MEAN CORPUSCULAR VOLUME; Value: 87.2; Range: 80.0-96.0; Units: fl; Status: F Test: MEAN CORPUSCULAR HEMOGLOBIN; Value: 29.8; Range: 27.0-33.0; Units: pg; Status: F Test: MEAN CORPUSCULAR HGB CONC; Value: 34.2; Range: 32.0-36.5; Units: g/dl; Status: F Test: RED CELL DISTRIBUTION WIDTH; Value: 13.6; Range: 11.5-14.5; Units: %; Status: F Test: PLATELET COUNT, AUTOMATED; Value: 268; Range: 150-450; Units: k/mm3; Status: F Test: NEUTROPHILS %; Value: 62.3; Range: 36.0-66.0; Units: %; Status: F Test: LYMPH %; Value: 31.7; Range: 24.0-44.0; Units: %; Status: F Test: MONO %; Value: 3.4; Range: 0.0-5.0; Units: %; Status: F Test: EOS %; Value: 0.4; Range: 0.0-3.0; Units: %; Status: F Test: BASO %; Value: 0.4; Range: 0.0-1.0; Units: %; Status: F Test: LARGE UNSTAINED CELL %; Value: 1.7; Range: 0.0-4.0; Units: %; Status: F Test: NEUTROPHILS #; Value: 2.9; Range: 1.8-7.7; Units: K/mm3; Status: F Test: LYMPH #; Value: 1.5; Range: 1.5-6.5; Units: K/mm3; Status: F Test: MONO #; Value: 0.2; Range: 0.0-0.8; Units: K/mm3; Status: F Test: EOS #; Value: 0.0; Range: 0.0-0.50; Units: K/mm3; Status: F Test: BASO #; Value: 0.0; Range: 0.0-0.2; Units: K/mm3; Status: F Test: LARGE UNSTAINED CELL #; Value: 0.1; Range: 0.0-0.4; Units: K/mm3; Status: F Lab Order: [facility]; SPEC'M 12/29/16 15:07 Test: GLUCOSE, FASTING; Value: 217; Range: 70-105; Abnormal: Above high normal; Units: MG/DL; Status: F Test: BLOOD UREA NITROGEN; Value: 21; Range: 7-18; Abnormal: Above high normal; Units: MG/DL; Status: F Test: CREATININE FOR GFR; Value: 1.20; Range: 0.55-1.02; Abnormal: Above high normal; Units: MG/DL; Status: F Test: GLOMERULAR FILTRATION RATE; Value: 56.5; Range: >60; Abnormal: Below low normal; Status: F Test: SODIUM LEVEL; Value: 138; Range: 136-145; Units: MEQ/L; Status: F Test: POTASSIUM SERUM; Value: 3.6; Range: 3.5-5.1; Units: MEQ/L; Status: F Test: CHLORIDE LEVEL; Value: 109; Range: 98-107; Abnormal: Above high normal; Units: MEQ/L; Status: F Test: CARBON DIOXIDE LEVEL; Value: 13; Range: 21-32; Abnormal: Below low normal; Units: MEQ/L; Status: F Test: ANION GAP; Value: 16; Range: 8-16; Units: MEQ/L; Status: F Test: CALCIUM LEVEL; Value: 10.2; Range: 8.5-10.1; Abnormal: Above high normal; Units: MG/DL; Status: F Test Note: ; Units are mL/min/1.73 m2 Chronic Kidney Disease Staging per NKF: Stage I & II GFR >=60 Normal to Mildly Decreased Stage III GFR 30-59 Moderately Decreased Stage IV GFR 15-29 Severely Decreased Stage V GFR <15 Very Little GFR Left ESRD GFR <15 on TRADER FIXED INCOME Lab Order: UA; SPEC'M 12/29/16 14:52 Test: APPEARANCE, URINE; Value: HAZY; Range: CLEAR; Status: F Test: COLOR, URINE; Value: YELLOW; Range: YELLOW; Status: F Test: PH,URINE; Value: 6.0; Range: 5.0-9.0; Units: UNITS; Status: F Test: SPECIFIC GRAVITY URINE AUTO; Value: 1.024; Range: 1.002-1.035; Status: F Test: PROTEIN, URINE AUTO; Value: 2+; Range: NEGATIVE; Abnormal: Above high normal; Units: mg/dL; Status: F Test: GLUCOSE, URINE (UA) AUTO; Value: 3+; Range: NEGATIVE; Abnormal: Above high normal; Units: mg/dL; Status: F Test: KETONE, URINE AUTO; Value: 2+; Range: NEGATIVE; Abnormal: Above high normal; Units: mg/dL; Status: F Test: UROBILINOGEN, URINE AUTO; Value: 0.2; Range: 0.0-2.0; Units: mg/dL; Status: F Test: BILIRUBIN, URINE AUTO; Value: NEGATIVE; Range: NEGATIVE; Status: F Test: NITRITE, URINE AUTO; Value: NEGATIVE; Range: NEGATIVE; Status: F Test: LEUKOCYTE ESTERASE, URINE AUTO; Value: TRACE; Range: NEGATIVE; Abnormal: Above high normal; Status: F Test: BLOOD, URINE BLOOD; Value: 1+; Range: NEGATIVE; Abnormal: Above high normal; Status: F Test: WBC, URINE AUTO; Value: 2; Range: 0-3; Units: /HPF; Status: F Test: RBC, URINE AUTO; Value: 1; Range: 0-3; Units: /HPF; Status: F Test: BACTERIA, URINE AUTO; Value: 1+; Range: NEGATIVE; Abnormal: Above high normal; Status: F Test: SQUAMOUS EPITHELIAL CELL UR AU; Value: 2; Range: 0-6; Units: /HPF; Status: F Test: MUCUS, URINE; Value: SMALL; Range: NEGATIVE; Status: F Test: HYALINE CAST, URINE AUTO; Value: 0; Range: 0-1; Units: /LPF; Status: F Test: GRANULAR CAST, URINE AUTO; Value: 11; Range: NONE; Units: /LPF; Status: F Outcome: 15:50 Discharge ordered by Provider. cc10 16:07 Discharge Assessment: Patient awake, alert and oriented x 3. No cognitive and/or jmb functional deficits noted. Patient verbalized understanding of disposition instructions. Patient awake and alert. obeys commands, Oriented to person, place and time. Patient verbalized understanding of disposition instructions. Patient has no functional deficits. patient administered narcotics - no. The following High Risk Discharge criteria are identified: None. Discharged to home ambulatory. Condition: stable Condition: improved. Discharge instructions given to patient, Instructed on discharge instructions, follow up and referral plans. Demonstrated understanding of instructions, Pt was receptive of discharge instructions/ teaching. No special radiology studies were completed. Property sent home with patient. 16:10 Patient left the ED. b Signatures: Simón Bey,RN RN Femi Baumann, RN RN mlb1 Adore Wiggins gr2 Ta Li,RN RN Darcy Lemus,RN RN Tom Naik, PA-C PA-C cc10 Yudy Enriquez,RN RN ms18 Rod Salazar, CUTTER HEAD SHARPENER CUTTER HEAD SHARPENER d Femi John,RN RN mb9 Alexander Underwood,RT RT csMacie Higgins MTDD
--- NOTE | 2016-12-31 17:11 | EDDOCDS ---
Physician Documentation [facility] Name: Carolina Paez Age: 31 yrs Sex: Female : 1985 Arrival Date: 12/29/2016 Time: 13:28 Bed I4 / M4 Private MD: NO PRIMARY PHYSICIAN, . Disposition: 12/29/16 15:50 Discharged to Home/Self Care. Impression: Acute bronchitis, Acute upper respiratory infection, unspecified, Diabetes mellitus due to underlying condition. - Condition is Stable. - Discharge Instructions: Acute Bronchitis, Diabetes Mellitus and Food. - Medication Reconciliation form. - [facility]: [facility]; When: Call to arrange an appointment; Reason: To establish care. - Problem is an ongoing problem. - Symptoms have improved. Historical: - Allergies: Bleach (Sodium Hypochlorite); dogs; - Home Meds: 1. Depo-Provera 150 mg/mL IM syrg 1 mL every 3 mo 2. Lantus 100 unit/mL Sub-Q soln Unknown twice a day 25 units at night and 22 units in the morning 3. Novolog 100 unit/mL Sub-Q soln AC and HS Sliding Scale - PMHx: Diabetes - IDDM: controlled; Hypercholesterolemia; hypokalemia; - PSHx: LEEP Procedure; Colonoscopy; - Social history: Smoking status: Patient states was never smoker of tobacco. No barriers to communication noted, The patient speaks fluent Emirati. - Family history: Not pertinent. - : The pt / caregiver states he / she is not on anticoagulants. Home medication list is obtained from the patient. - Exposure Risk Screening:: None identified. 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 4 in. (162.56 cm) (R); Pain 2/10; 15:55 BP 128 / 78; Pulse 107; Resp 18; Temp 98.4(O); Pulse Ox 100% on R/A; Pain 0/10; jrd 13:30 Body Mass Index 23.00 (60.78 kg, 162.56 cm) gr2 MDM: 13:51 Fingerstick Blood Sugar Ordered. EDMS 14:46 Misc Supervising Nurse Order ordered. cc10 14:46 Call Respiratory ordered. cc10 14:46 MDI teaching with Spacer ordered. cc10 14:46 Ventolin Inhaler 2 puffs Inhalation once ordered. cc10 14:46 IV Saline Lock ordered. cc10 14:46 NS 0.9% 1000 ml IV at bolus once ordered. cc10 14:47 Fingerstick Blood Sugar Reviewed. cc10 14:48 CBC with Diff Ordered. EDMS 14:48 BMP Ordered. EDMS 14:48 UA Ordered. EDMS 15:13 Call Respiratory complete. jmk 15:26 UA Reviewed. cc10 15:26 CBC with Diff Reviewed. cc10 15:34 Misc Supervising Nurse Order complete. jmk 15:41 BMP Reviewed. cc10 15:45 Financial registration complete. [facility] 15:58 [facility] Payment Agreement was scanned into [employer] and attached to record. [facility] 12/30 13:43 T-Sheet-- Draft Copy was scanned into [employer] and attached to record. gb Point of Care Testing: Blood Glucose: 12/29 13:31 Blood Glucose: 271 mg/dL; ms18 Ranges: Administered Medications: 15:21 Drug: NS 0.9% 1000 ml Route: IV; Rate: bolus; Site: right antecubital; k 15:49 Drug: Ventolin 2 puffs [Ventolin HFA 90 mcg/actuation aerosol inhaler (2 puffs)] Route: cs15 Inhalation; Signatures: Dispatcher [employer] EDSimón Fuentes,RN RN Spring Calixto, Reg Reg Ta Wharton,RN RN Tom Carrasco, PACecilia PAYudy Galdamez RN RN ms18 Macie Montanez gjAlexander Boyce RT cs15 The chart was reviewed and I authenticate all verbal orders and agree with the evaluation and treatment provided.Attachments: 15:58 [facility] Payment Agreement [facility] 12/30 13:43 T-Sheet-- Draft Copy gb Chart Complete MTDD
--- NOTE | 2016-12-31 17:11 | EDDOCDS ---
Nurse's Notes [facility] Name: Carolina Paez Age: 31 yrs Sex: Female : 1985 Arrival Date: 12/29/2016 Time: 13:28 Bed I4 / M4 Private MD: NO PRIMARY PHYSICIAN, . Diagnosis: Acute bronchitis;Acute upper respiratory infection, unspecified;Diabetes mellitus due to underlying condition Presentation: 12/29 13:31 Presenting complaint: Patient states: that she has an upper respiratory infection and ms18 has been having high blood sugar. Pt states that her blood sugar this morning when she woke up was over 600 and pt states that at 1230 her BGL was 358. Adult Sepsis Screening: The patient does not have new or worsening altered mentation. Patient's respiratory rate is less than 22. Systolic blood pressure is greater than 100. Patient has a qSOFA score of 0- Negative Sepsis Screen. Suicide/Homicide risk assessment- the patient denies having any suicidal and/or homicidal ideations and does not present with any other emotional, behavioral or mental health complaints. Status: Patient is not a director of cardiopulmonary services or dependent. Transition of care: patient was not received from another setting of care. 13:31 Acuity: DENA Level 3 ms18 13:31 Method Of Arrival: Walkin/Carried/Asstd ms18 Triage Assessment: 13:38 General: Appears in no apparent distress, ill, Behavior is appropriate for age, ms18 cooperative. Pain: Denies pain. HIV screening NA for this visit Offered previously. Neurological: Level of Consciousness is awake, alert, obeys commands, Oriented to person, place, time. Respiratory: Airway is patent Respiratory effort is even, unlabored. Derm: Skin is pink, warm & dry. normal. 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 Depo-Provera 150 mg/mL IM syrg 1 mL every 3 mo 2. Lantus 100 unit/mL Sub-Q soln Unknown twice a day 25 units at night and 22 units in the morning 3. Novolog 100 unit/mL Sub-Q soln AC and HS Sliding Scale - PMHx: Diabetes - IDDM: controlled; Hypercholesterolemia; hypokalemia; - PSHx: LEEP Procedure; Colonoscopy; - Social history: Smoking status: Patient states was never smoker of tobacco. No barriers to communication noted, The patient speaks fluent Eritrean. - Family history: Not pertinent. - : The pt / caregiver states he / she is not on anticoagulants. Home medication list is obtained from the patient. - Exposure Risk Screening:: None identified. Screenin:07 Screening information is obtained from the patient. Fall risk: No risks identified. jmb Assistance ADL's: requires no assistance with activities of daily living. Abuse/DV Screen: The patient / caregiver reports he/she is: not in a situation that causes fear, pain or injury. Nutritional screening: No deficits noted. Advance Directives: Currently, there is no health care proxy. There is no active DNR order. There is no living will. There is no Power of Software Design Analyst. home support is adequate. Assessment: 15:10 General: Appears in no apparent distress, comfortable, Behavior is appropriate for age, ead cooperative, pleasant. Pain: Denies pain. Neurological: Level of Consciousness is awake, alert, obeys commands, Oriented to person, place, time. Respiratory: Airway is patent Respiratory effort is even, unlabored, Breath sounds are clear bilaterally. Respiratory: Reports cough that is. GI: Denies nausea, vomiting, pain. Derm: Skin is pink, warm & dry. 16:07 General: Patient instructed on discharge, patient asked if there were any questions jmb regarding discharge, patient stated no. IV discontinued per hospital policy. Patient signed discharge instructions. Patient discharged in stable condition.. Vital Signs: 13:30 BP 133 / 84; Pulse 117; Resp 18 S; Temp 98.2(O); Pulse Ox 98% on R/A; Weight 60.78 kg gr2 (R); Height 5 ft. 4 in. (162.56 cm) (R); Pain 2/10; 15:55 BP 128 / 78; Pulse 107; Resp 18; Temp 98.4(O); Pulse Ox 100% on R/A; Pain 0/10; jrd 13:30 Body Mass Index 23.00 (60.78 kg, 162.56 cm) gr2 Vitals: 13:30 Log In Time: December 29, 2016 at 13:30. gr2 ED Course: 13:29 Patient visited by Adore Wiggins. gr2 13:29 NO PRIMARY PHYSICIAN, . is Private Physician. gr2 13:29 Patient moved to Waiting gr2 13:31 Patient visited by Adore Wiggins. gr2 13:31 Patient moved to Pre RCE gr2 13:36 Triage Initiated ms18 14:22 Patient moved to Triage 2 mlb1 14:35 Tom Moon PA-C is PHCP. cc10 14:35 Elia Menard MD is Attending Physician. cc10 14:35 Patient visited by Tom Moon PA-C. cc10 14:35 Patient visited by Tom Moon PA-C. cc10 14:52 Patient moved to I4 / M4 mb9 14:56 UA Sent. ms18 15:09 Patient visited by Darcy Gonzales RN. ead 15:10 BMP Sent. ead 15:10 CBC with Diff Sent. ead 15:10 Inserted peripheral IV: 22gauge IV in left upper arm. and blood collected. Patient ead tolerated the procedure well. 15:50 [facility] is Referral Physician. cc10 15:56 Patient visited by Rod Salazar PCA. jrd 15:58 [facility] Payment Agreement was scanned into [employer] and attached to record. gjb 16:07 The patient / caregiver is instructed regarding the plan of care and ED course. jmb 16:07 Discontinued lock intact, bleeding controlled, pressure dressing applied, No jmb redness/swelling at site. No procedures done that require assistance. 12/30 13:43 T-Sheet-- Draft Copy was scanned into [employer] and attached to record. gb Administered Medications: 12/29 15:21 Drug: NS 0.9% 1000 ml Route: IV; Rate: bolus; Site: right antecubital; jmk 15:49 Drug: Ventolin 2 puffs [Ventolin HFA 90 mcg/actuation aerosol inhaler (2 puffs)] Route: cs15 Inhalation; Point of Care Testing: Blood Glucose: 13:31 Blood Glucose: 271 mg/dL; ms18 Ranges: RT: 15:49 Initial Med Neb Given as ordered. Respiratory: Breath sounds are clear bilaterally. cs15 Order Results: Lab Order: Fingerstick Blood Sugar; SPEC'M 12/29/16 13:36 Test: BEDSIDE GLUCOSE; Value: 271; Range: 70-105; Abnormal: Above high normal; Units: MG/DL; Status: F Lab Order: CBC with Diff; SPEC'M 12/29/16 15:07 Test: WHITE BLOOD COUNT; Value: 4.7; Range: 4.0-10.0; Units: K/mm3; Status: F Test: RED BLOOD COUNT; Value: 4.95; Range: 4.00-5.40; Units: M/mm3; Status: F Test: HEMOGLOBIN; Value: 14.8; Range: 12.0-16.0; Units: g/dl; Status: F Test: HEMATOCRIT; Value: 43.2; Range: 36.0-47.0; Units: %; Status: F Test: MEAN CORPUSCULAR VOLUME; Value: 87.2; Range: 80.0-96.0; Units: fl; Status: F Test: MEAN CORPUSCULAR HEMOGLOBIN; Value: 29.8; Range: 27.0-33.0; Units: pg; Status: F Test: MEAN CORPUSCULAR HGB CONC; Value: 34.2; Range: 32.0-36.5; Units: g/dl; Status: F Test: RED CELL DISTRIBUTION WIDTH; Value: 13.6; Range: 11.5-14.5; Units: %; Status: F Test: PLATELET COUNT, AUTOMATED; Value: 268; Range: 150-450; Units: k/mm3; Status: F Test: NEUTROPHILS %; Value: 62.3; Range: 36.0-66.0; Units: %; Status: F Test: LYMPH %; Value: 31.7; Range: 24.0-44.0; Units: %; Status: F Test: MONO %; Value: 3.4; Range: 0.0-5.0; Units: %; Status: F Test: EOS %; Value: 0.4; Range: 0.0-3.0; Units: %; Status: F Test: BASO %; Value: 0.4; Range: 0.0-1.0; Units: %; Status: F Test: LARGE UNSTAINED CELL %; Value: 1.7; Range: 0.0-4.0; Units: %; Status: F Test: NEUTROPHILS #; Value: 2.9; Range: 1.8-7.7; Units: K/mm3; Status: F Test: LYMPH #; Value: 1.5; Range: 1.5-6.5; Units: K/mm3; Status: F Test: MONO #; Value: 0.2; Range: 0.0-0.8; Units: K/mm3; Status: F Test: EOS #; Value: 0.0; Range: 0.0-0.50; Units: K/mm3; Status: F Test: BASO #; Value: 0.0; Range: 0.0-0.2; Units: K/mm3; Status: F Test: LARGE UNSTAINED CELL #; Value: 0.1; Range: 0.0-0.4; Units: K/mm3; Status: F Lab Order: [facility]; SPEC'M 12/29/16 15:07 Test: GLUCOSE, FASTING; Value: 217; Range: 70-105; Abnormal: Above high normal; Units: MG/DL; Status: F Test: BLOOD UREA NITROGEN; Value: 21; Range: 7-18; Abnormal: Above high normal; Units: MG/DL; Status: F Test: CREATININE FOR GFR; Value: 1.20; Range: 0.55-1.02; Abnormal: Above high normal; Units: MG/DL; Status: F Test: GLOMERULAR FILTRATION RATE; Value: 56.5; Range: >60; Abnormal: Below low normal; Status: F Test: SODIUM LEVEL; Value: 138; Range: 136-145; Units: MEQ/L; Status: F Test: POTASSIUM SERUM; Value: 3.6; Range: 3.5-5.1; Units: MEQ/L; Status: F Test: CHLORIDE LEVEL; Value: 109; Range: 98-107; Abnormal: Above high normal; Units: MEQ/L; Status: F Test: CARBON DIOXIDE LEVEL; Value: 13; Range: 21-32; Abnormal: Below low normal; Units: MEQ/L; Status: F Test: ANION GAP; Value: 16; Range: 8-16; Units: MEQ/L; Status: F Test: CALCIUM LEVEL; Value: 10.2; Range: 8.5-10.1; Abnormal: Above high normal; Units: MG/DL; Status: F Test Note: ; Units are mL/min/1.73 m2 Chronic Kidney Disease Staging per NKF: Stage I & II GFR >=60 Normal to Mildly Decreased Stage III GFR 30-59 Moderately Decreased Stage IV GFR 15-29 Severely Decreased Stage V GFR <15 Very Little GFR Left ESRD GFR <15 on DIRECTOR OF BUSINESS DEVELOPMENT Lab Order: UA; SPEC'M 12/29/16 14:52 Test: APPEARANCE, URINE; Value: HAZY; Range: CLEAR; Status: F Test: COLOR, URINE; Value: YELLOW; Range: YELLOW; Status: F Test: PH,URINE; Value: 6.0; Range: 5.0-9.0; Units: UNITS; Status: F Test: SPECIFIC GRAVITY URINE AUTO; Value: 1.024; Range: 1.002-1.035; Status: F Test: PROTEIN, URINE AUTO; Value: 2+; Range: NEGATIVE; Abnormal: Above high normal; Units: mg/dL; Status: F Test: GLUCOSE, URINE (UA) AUTO; Value: 3+; Range: NEGATIVE; Abnormal: Above high normal; Units: mg/dL; Status: F Test: KETONE, URINE AUTO; Value: 2+; Range: NEGATIVE; Abnormal: Above high normal; Units: mg/dL; Status: F Test: UROBILINOGEN, URINE AUTO; Value: 0.2; Range: 0.0-2.0; Units: mg/dL; Status: F Test: BILIRUBIN, URINE AUTO; Value: NEGATIVE; Range: NEGATIVE; Status: F Test: NITRITE, URINE AUTO; Value: NEGATIVE; Range: NEGATIVE; Status: F Test: LEUKOCYTE ESTERASE, URINE AUTO; Value: TRACE; Range: NEGATIVE; Abnormal: Above high normal; Status: F Test: BLOOD, URINE BLOOD; Value: 1+; Range: NEGATIVE; Abnormal: Above high normal; Status: F Test: WBC, URINE AUTO; Value: 2; Range: 0-3; Units: /HPF; Status: F Test: RBC, URINE AUTO; Value: 1; Range: 0-3; Units: /HPF; Status: F Test: BACTERIA, URINE AUTO; Value: 1+; Range: NEGATIVE; Abnormal: Above high normal; Status: F Test: SQUAMOUS EPITHELIAL CELL UR AU; Value: 2; Range: 0-6; Units: /HPF; Status: F Test: MUCUS, URINE; Value: SMALL; Range: NEGATIVE; Status: F Test: HYALINE CAST, URINE AUTO; Value: 0; Range: 0-1; Units: /LPF; Status: F Test: GRANULAR CAST, URINE AUTO; Value: 11; Range: NONE; Units: /LPF; Status: F Outcome: 15:50 Discharge ordered by Provider. cc10 16:07 Discharge Assessment: Patient awake, alert and oriented x 3. No cognitive and/or jmb functional deficits noted. Patient verbalized understanding of disposition instructions. Patient awake and alert. obeys commands, Oriented to person, place and time. Patient verbalized understanding of disposition instructions. Patient has no functional deficits. patient administered narcotics - no. The following High Risk Discharge criteria are identified: None. Discharged to home ambulatory. Condition: stable Condition: improved. Discharge instructions given to patient, Instructed on discharge instructions, follow up and referral plans. Demonstrated understanding of instructions, Pt was receptive of discharge instructions/ teaching. No special radiology studies were completed. Property sent home with patient. 16:10 Patient left the ED. [facility] Signatures: Simón Bey,RN RN Spring Calixto, Reg Reg gb Femi Sun, RN RN mlb1 Adore Wiggins gr2 Ta Li RN RN Darcy Lemus,RN RN Tom Naik, PA-C PA-C cc10 Yudy Enriquez,RN RN ms18 Rod Salazar, SHOT CORE DRILL OPERATOR HELPER SHOT CORE DRILL OPERATOR HELPER Femi Moore,RN RN mb9 Alexander Underwood,RT RT cs15 Macie Montanez Chart Complete MTDD
--- NOTE | 2016-12-31 17:11 | EDDOCDS ---
Physician Documentation [facility] Name: Carolina Paez Age: 31 yrs Sex: Female : 1985 Arrival Date: 12/29/2016 Time: 13:28 Bed I4 / M4 Private MD: NO PRIMARY PHYSICIAN, . Disposition: 12/29/16 15:50 Discharged to Home/Self Care. Impression: Acute bronchitis, Acute upper respiratory infection, unspecified, Diabetes mellitus due to underlying condition. - Condition is Stable. - Discharge Instructions: Acute Bronchitis, Diabetes Mellitus and Food. - Medication Reconciliation form. - [facility] up: [facility]; When: Call to arrange an appointment; Reason: To establish care. - Problem is an ongoing problem. - Symptoms have improved. Historical: - Allergies: Bleach (Sodium Hypochlorite); dogs; - Home Meds: 1. Depo-Provera 150 mg/mL IM syrg 1 mL every 3 mo 2. Lantus 100 unit/mL Sub-Q soln Unknown twice a day 25 units at night and 22 units in the morning 3. Novolog 100 unit/mL Sub-Q soln AC and HS Sliding Scale - PMHx: Diabetes - IDDM: controlled; Hypercholesterolemia; hypokalemia; - PSHx: LEEP Procedure; Colonoscopy; - Social history: Smoking status: Patient states was never smoker of tobacco. No barriers to communication noted, The patient speaks fluent Tuvaluan. - Family history: Not pertinent. - : The pt / caregiver states he / she is not on anticoagulants. Home medication list is obtained from the patient. - Exposure Risk Screening:: None identified. 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 4 in. (162.56 cm) (R); Pain 2/10; 15:55 BP 128 / 78; Pulse 107; Resp 18; Temp 98.4(O); Pulse Ox 100% on R/A; Pain 0/10; jrd 13:30 Body Mass Index 23.00 (60.78 kg, 162.56 cm) gr2 MDM: 13:51 Fingerstick Blood Sugar Ordered. EDMS 14:46 Misc Hotel Manager Order ordered. cc10 14:46 Call Respiratory ordered. cc10 14:46 MDI teaching with Spacer ordered. cc10 14:46 Ventolin Inhaler 2 puffs Inhalation once ordered. cc10 14:46 IV Saline Lock ordered. cc10 14:46 NS 0.9% 1000 ml IV at bolus once ordered. cc10 14:47 Fingerstick Blood Sugar Reviewed. cc10 14:48 CBC with Diff Ordered. EDMS 14:48 BMP Ordered. EDMS 14:48 UA Ordered. EDMS 15:13 Call Respiratory complete. jmk 15:26 UA Reviewed. cc10 15:26 CBC with Diff Reviewed. cc10 15:34 Misc Hotel Manager Order complete. jmk 15:41 BMP Reviewed. cc10 15:45 Financial registration complete. [facility] 15:58 [facility] Payment Agreement was scanned into [employer] and attached to record. [facility] 12/30 13:43 T-Sheet-- Draft Copy was scanned into [employer] and attached to record. gb Point of Care Testing: Blood Glucose: 12/29 13:31 Blood Glucose: 271 mg/dL; ms18 Ranges: Administered Medications: 15:21 Drug: NS 0.9% 1000 ml Route: IV; Rate: bolus; Site: right antecubital; k 15:49 Drug: Ventolin 2 puffs [Ventolin HFA 90 mcg/actuation aerosol inhaler (2 puffs)] Route: cs15 Inhalation; Signatures: Dispatcher [employer] EDSimón Fuentes,RN RN Spring Calixto, Reg Reg Ta Wharton,RN RN Tom Carrsaco, PACecilia PAYudy Galdamez RN RN ms18 Macie Motnanez gjAlexander Boyce RT cs15 The chart was reviewed and I authenticate all verbal orders and agree with the evaluation and treatment provided.Attachments: 15:58 [facility] Payment Agreement [facility] 12/30 13:43 T-Sheet-- Draft Copy gb Chart Complete MTDD
== END 2016-12-29 16:10 | disposition home or self-care (01) ==
LOC: M ED 13:28
DX: J20.9 Acute bronchitis, unspecified (principal); J06.9 Acute upper respiratory infection, unspecified; E11.65 Type 2 diabetes mellitus with hyperglycemia; E78.00 Pure hypercholesterolemia, unspecified; E87.6 Hypokalemia; Z79.3 Long term (current) use of hormonal contraceptives; Z79.4 Long term (current) use of insulin; Z91.89 Other specified personal risk factors, not elsewhere classified

== ENCOUNTER 2017-06-29 17:21 | Emergency (ER) | payer BC ==
[~2017-06-29] VITALS: Ht 162.6 cm; Wt 65.0 kg
[~2017-06-29 17:21] MED LIST changes: +CIPR-249 PO; -CIPR500T89 PO; -IBUP200C PO; +IBUP200C10 PO; -LEVA750T PO; +LEVA750T7 PO; -METH-107 PO; +METH1TAB40 PO; -NAPR500T2 PO; +NAPR500T3 PO
[2017-06-29] MEDS ORDERED: TRES1INJ2 SUBQ (17:35)
[2017-06-29] MEDS ORDERED: DEXTROSE 50% 50 ML SYRINGE IV STA (17:47)
[2017-06-29] MEDS ORDERED: ONDANSETRON 4MG/2ML VIAL (J2405) IV ONE (18:00)
[2017-06-29 18:33] LABS: BASO % 0.5 % (0.0-1.0); EOS % 0.1 % (0.0-3.0); LARGE UNSTAINED CELL # 0.1 K/mm3 (0.0-0.4); LARGE UNSTAINED CELL % 2.5 % (0.0-4.0); LYMPH % 27.9 % (24.0-44.0); MEAN CORPUSCULAR HEMOGLOBIN 31.9 pg (27.0-33.0); MEAN CORPUSCULAR VOLUME 84.7 fl (80.0-96.0); MONO # 0.2 K/mm3 (0.0-0.8); MONO % 6.2 % (0.0-5.0); NEUTROPHILS # 2.3 K/mm3 (1.8-7.7); NEUTROPHILS % 62.8 % (36.0-66.0); PLATELET COUNT, AUTOMATED 168 k/mm3 (150-450); RED CELL DISTRIBUTION WIDTH 12.2 % (11.5-14.5); WHITE BLOOD COUNT 3.6 K/mm3 (4.0-10.0)
[2017-06-29 18:41] LABS: MEAN CORPUSCULAR HGB CONC 37.6 g/dl (32.0-36.5)
[2017-06-29 18:46] LABS: ANION GAP 13 MEQ/L (8-16); BLOOD UREA NITROGEN 20 MG/DL (7-18); CALCIUM LEVEL 10.1 MG/DL (8.5-10.1); CARBON DIOXIDE LEVEL 17 MEQ/L (21-32); CHLORIDE LEVEL 108 MEQ/L (98-107); CREATININE FOR GFR 0.84 MG/DL (0.55-1.02); GLOMERULAR FILTRATION RATE > 60.0 (>60); GLUCOSE, FASTING 54 MG/DL (70-105); SODIUM LEVEL 138 MEQ/L (136-145)
[2017-06-29] MEDS ORDERED: POTASSIUM CHLORIDE 10 MEQ SR TABLET PO ONE (19:30)
[2017-06-29] MEDS ORDERED: ONDANSETRON 4 MG ORAL DISINTEGRATING TAB (S0181) PO ONE (20:00)
[2017-06-29 20:11] VITALS: BP 119/73
== END 2017-06-29 20:20 | disposition home or self-care (01) ==
LOC: M ED 17:21
DX: E10.649 Type 1 diabetes mellitus with hypoglycemia without coma (principal); R11.2 Nausea with vomiting, unspecified; Z79.4 Long term (current) use of insulin; Z79.899 Other long term (current) drug therapy
CPT/HCPCS: 36415; 80048; 85025; 96374; 99283; J2405

== ENCOUNTER 2017-07-18 15:26 | Inpatient (IN) | payer BC ==
[~2017-07-18] VITALS: Ht 162.6 cm; Wt 65.5 kg
[~2017-07-18 15:26] MED LIST changes: +TRES1INJ2 SUBQ
[2017-07-18] MEDS ORDERED: NS 1,000 ML IV ONE (16:30)
[2017-07-18] MEDS ORDERED: METOCLOPRAMIDE INJ 10MG/2ML VIAL (J2765) IV ONE (16:30)
[2017-07-18 17:13] LABS: MEAN CORPUSCULAR HEMOGLOBIN 29.7 pg (27.0-33.0); MEAN CORPUSCULAR HGB CONC 33.1 g/dl (32.0-36.5); MEAN CORPUSCULAR VOLUME 89.9 fl (80.0-96.0); RED CELL DISTRIBUTION WIDTH 13.4 % (11.5-14.5); WHITE BLOOD COUNT 11.8 K/mm3 (4.0-10.0)
--- NOTE | 2017-07-18 17:25 | REP ---
Clinical: Headache and vomiting . Comparison: 12/08/2012 . Findings: The ventricles, sulci, and cisterns are normal in position and appearance. [place]-white differentiation is maintained. No acute intracranial hemorrhage, mass/mass effect, pathology or trauma/injury. No evidence for acute infarction. No extra-axial fluid collection. Calvarium is intact. Paranasal sinuses and mastoid air cells are clear. Impression: Normal noncontrast head CT. No evidence for acute intracranial pathology or trauma/injury. Signed by Sixto Trimble MD 07/18/2017 05:17 [facility]
[2017-07-18 17:37] LABS: ALBUMIN 4.5 GM/DL (3.2-5.2); ALBUMIN/GLOBULIN RATIO 0.94 (1.00-1.93); ALKALINE PHOSPHATASE 125 U/L (45-117); ALT/SGPT 27 U/L (12-78); ANION GAP 23 MEQ/L (8-16); AST/SGOT 22 U/L (15-37); BILIRUBIN,DIRECT < 0.1 MG/DL (0.0-0.2); BILIRUBIN,TOTAL 0.6 MG/DL (0.2-1.0); BLOOD UREA NITROGEN 34 MG/DL (7-18); CALCIUM LEVEL 10.1 MG/DL (8.5-10.1); CARBON DIOXIDE LEVEL 5 MEQ/L (21-32); CHLORIDE LEVEL 112 MEQ/L (98-107); CREATININE FOR GFR 1.56 MG/DL (0.55-1.02); GLOMERULAR FILTRATION RATE 41.8 (>60); GLUCOSE, FASTING 319 MG/DL (70-105); SODIUM LEVEL 140 MEQ/L (136-145); TOTAL PROTEIN 9.3 GM/DL (6.4-8.2)
[2017-07-18 17:45] LABS: POTASSIUM SERUM 5.4 MEQ/L (3.5-5.1)
[2017-07-18] MEDS ORDERED: HumuLIN R (REGULAR) INSULIN (NovoLIN R) **100U/ML** PER UNIT IV ONE ×2 (18:30→21:00)
[2017-07-18] MEDS ORDERED: ONDANSETRON 4MG/2ML VIAL (J2405) IV ONE (21:00)
[2017-07-18 21:09] LABS: ABG BASE EXCESS -24.6 (-2.0-2.0); ABG HCO3 3.3 MEQ/L (22.0-26.0); ABG PARTIAL PRESSURE O2 129.4 mmHg (75.0-100.0); ABG TOTAL CO2 3.7 MEQ/L (22.0-29.0)
[2017-07-18 21:16] LABS: ABG pH (ARTERIAL) 7.066 UNITS (7.350-7.450)
[2017-07-18 21:17] LABS: ABG PARTIAL PRESSURE CO2 11.9 mmHg (35.0-45.0)
[2017-07-18] MEDS ORDERED: INSULIN HUMAN REGULAR 100 UNITS in NS 99 ML IV SCH ×2 (21:19→21:25)
[2017-07-18] MEDS ORDERED: D5W 1,000 ML IV SCH (21:25)
[2017-07-18] MEDS ORDERED: ONDANSETRON 4MG/2ML VIAL (J2405) IV PRN (21:30)
[2017-07-18] MEDS ORDERED: INSULIN IV RATE CHANGE DOCUMENTATION ML/HR XX SCH ×2 (21:30)
[2017-07-18] MEDS ORDERED: ATRO1OPD OD (21:44)
[2017-07-18] MEDS ORDERED: TYLE500T78 PO (21:44)
[2017-07-18] MEDS ORDERED: DURE0.055 OD (21:44)
[2017-07-18 22:14] LABS: METHADONE URINE NEGATIVE (NEGATIVE)
[2017-07-18] MEDS ORDERED: NS 1,000 ML IV SCH (22:15)
--- NOTE | 2017-07-18 22:20 | HPEPDOC ---
General Date of Admission Jul 18, 2017 at 21:25 Chief Complaint The patient is a 31-year-old female Presented to the ER with complaints of weakness / sleepiness and was brought in by coworker. History of Present Illness Patient is a 31 year old female with a PMHx of Type 1 DM and DLP who presented to the ER with complaints of sleepiness after her coworker found her at home. She notes that yesterday she was having a headache, described as a pressure like sensation all around her head. She noted that she was nauseous and had vomited once and there was resolution of her headache. Usually she gets headaches and she gets pain relief with Tylenol. She notes some light sensitivity associated with this. Today she noted that she slept most of the day and her coworker came to investigate after she failed to answer any phone calls. Coworker brought her into the ER because of constant sleepiness / lethargy. Upon arrival to the ER patient noted a mild headache and had vomited twice. No blood was noted in the vomitus, mostly liquid. She denied any chest pain, palpitations, cough, shortness of breath, diaphoresis , abdominal pain, constipation, diarrhea, dysuria, fever or chills. She received a meal in the ER, but couldn't eat much of it. Hospitalist team was called for admission after she was found to have an elevated AG metabolic acidosis with a beta hydroxybutyrate level >46. Patient notes that she takes long acting insulin every morning and short acting insulin based on carbohydrate counting with every meal. She notes that she has been compliant with her medications. Her last DKA episode was in 11/2016 [address] [facility]. Home Medications Scheduled (Tresiba Flextouch) 100 Unit/Ml Inj, 45 UNITS SUBQ DAILY, (Reported) (Durezol) 0.05 % Emu, 1 DROP OD BID, (Reported) Atropine Sulfate (Atropine Sulfate) 1 % [place], 1 DROP OD BID, (Reported) Insulin Aspart (Novolog) 100 U/Ml Inj, 1 DOSE SC ACHS, (Reported) PER SLIDING SCALE Scheduled PRN Acetaminophen (Tylenol Extra Strength) 500 Mg Tab, 1,000 MG PO Q6H PRN for PAIN, (Reported) Allergies Coded Allergies: No Known Drug Allergy (Verified Allergy, Unknown, 02/19/13) Past Medical History Medical History Type 1 DM and DLP Surgical History Colonoscopy for constipation (>5 years prior) Family History - Mother with history of open heart surgery - Father with history of DLP and HTN - Grandparents on both sides with history of malignancy (unsure of what) Social History - Denies the use of alcohol, tobacco or illicit drugs - Denies recent travel or sick contacts - Lives with father and sisters - 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; 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 [place] Review of Symptoms Other systems 10 point review of systems complete; all negative otherwise stated in HPI Vital Signs - Vitals: BP 146/62, HR 129, RR 22, Sat 100%RA, Temp 98.7F - General: Lying in bed, No acute distress, Speaking in full sentences, AAOx3 - HEENT: NC, AT, PERRLA, EOMI - CVS: Regular rhythm, Tachycardic, +S1S2 - Lungs: Fair air entry bilaterally, Clear to auscultation, No wheezing / rales / rhonchi - Abdomen: Soft, Non-distended, Non-tender, + Bowel sounds x 4 - Extremities: No lower extremity edema, No calf tenderness - Neuro: No focal motor or sensory deficit - Skin: No visible rashes Laboratory Data Labs 24H Laboratory Tests 2 07/18/17 16:57: Anion Gap 23H, Glomerular Filtration Rate 41.8L, Calcium Level 10.1, Aspartate Amino Transf (AST/SGOT) 22, Alanine Aminotransferase (ALT/SGPT) 27, Alkaline Phosphatase 125H, Total Bilirubin 0.6, Direct Bilirubin < 0.1, Total Protein 9.3H, Albumin 4.5, Albumin/Globulin Ratio 0.94L, Lipase 129, Ethyl Alcohol Level < 0.003, B-Hydroxybutyrate > 46.00H 07/18/17 20:50: Blood Gas Bicarbonate Standard 8.0L, Arterial Blood pH 7.066*L, Arterial Blood Partial Pressure CO2 11.9*L, Arterial Blood Partial Pressure O2 129.4H, Arterial Blood Total CO2 3.7L, Arterial Blood HCO3 3.3L, Arterial Blood Base Excess -24.6L, Arterial Blood Oxygen Saturation 98.1 07/18/17 21:04: Urine Appearance CLEAR, Urine Color STRAW, Urine pH 5.0, Urine Specific [place] 1.013, Urine Protein 2+H, Urine Glucose (UA) 3+H, Urine Ketones 2+H, Urine Urobilinogen 0.2, Urine Bilirubin NEGATIVE, Urine Leukocyte Esterase NEGATIVE, Urine Blood 1+H, Urine Nitrite NEGATIVE, Urine WBC (Auto) 1, Urine RBC (Auto) 4H , Urine Hyaline Casts (Auto) 0, Urine Bacteria (Auto) NEGATIVE, Urine Squamous Epithelial Cells 0, Urine Mucus (Auto) SMALL, Urine Sperm (Auto) , Urine Random Osmolality 569, Urine Random Creatinine 21.5, Urine Random Sodium 79, Urine Random Potassium 45.6, Urine Amphetamines Screen NEGATIVE, Urine Benzodiazepines Screen NEGATIVE, Urine Opiates Screen NEGATIVE, Urine Methadone Screen NEGATIVE, Urine Barbiturates Screen NEGATIVE, Urine Phencyclidine Screen NEGATIVE, Urine Cocaine Metabolite Screen NEGATIVE, Urine Cannabinoids Screen NEGATIVE CBC/BMP Laboratory Tests 07/18/17 16:57 Red Blood Count 5.63 H, Mean Corpuscular Volume 89.9, Mean Corpuscular Hemoglobin 29.7, Mean Corpuscular Hemoglobin Concent 33.1, Red Cell Distribution Width 13.4 Microbiology Microbiology 07/18/17 Urine Culture, Received Pending Plan / VTE VTE Prophylaxis Ordered?: Yes Plan / Urinary Catheter Reason for insertion/continuin: Critical Pt monitoring Plan Plan Diabetic ketoacidosis - Etiology remains unclear; possibly 2/2 non-compliance / poorly controlled glucose as outpatient - History of non-compliance in 11/2016 resulting in DKA - Presented with sleepiness / weakness - Physical unrevealing, afebrile - Elevated AG and Acetone level, pH of 7.066 - UA without evidence of infection - CXR completed; appears without infiltrate - Will check blood cultures, urine cultures, EKG, Troponin x 1 set - Will start aggressive IV fluid hydration and insulin drip - Will follow with BMP, Mg, Phos levels every 4 hours and adjust fluids as required AG and NAG metabolic acidosis - Likely 2/2 DKA, possibly lactic acidosis, possibly RTA (Type IV) - Delta / Delta of < 1 - Denies history of diarrhea - UA with pH of 5.0 - Will check Urine AG (Send for urine electrolytes) - c/w IV fluid hydration Acute kidney injury - possibly 2/2 dehydration - Will check urine electrolytes - c/w IV fluid hydration Hyperkalemia - Will not correct at this time as insulin will be initiated - Will f/u every 4 hours Leukocytosis - likely reactive - Negative ROS, Afebrile - hold off on antibiotics Polycythemia - likely hemoconcentrated - Baseline Hg of 13 - Will c/w IV fluid hydration DLP - Not on any medications Gastrointestinal prophylaxis - Will start Protonix DVT prophylaxis - Will start Heparin RAYNA ROMANO MD Jul 18, 2017 22:20
[2017-07-18 23:18] LABS: PHOSPHORUS LEVEL 4.6 MG/DL (2.5-4.9)
[2017-07-18] MEDS ORDERED: D5W/0.45% SODIUM CHLORIDE 1,000 ML IV SCH (23:30)
[2017-07-18] MEDS: INSULIN HUMAN REGULAR 100 UNITS in NS 99 ML IV SCH (23:45)
[2017-07-19 04:16] LABS: BASO % 0.4 % (0.0-1.0); EOS % 0.2 % (0.0-3.0); LARGE UNSTAINED CELL # 0.1 K/mm3 (0.0-0.4); LARGE UNSTAINED CELL % 1.8 % (0.0-4.0); LYMPH # 1.4 K/mm3 (1.5-6.5); MEAN CORPUSCULAR HEMOGLOBIN 29.2 pg (27.0-33.0); MEAN CORPUSCULAR HGB CONC 34.1 g/dl (32.0-36.5); MEAN CORPUSCULAR VOLUME 85.6 fl (80.0-96.0); MONO # 0.5 K/mm3 (0.0-0.8); MONO % 6.8 % (0.0-5.0); NEUTROPHILS # 5.3 K/mm3 (1.8-7.7); NEUTROPHILS % 73.8 % (36.0-66.0); RED CELL DISTRIBUTION WIDTH 13.4 % (11.5-14.5); WHITE BLOOD COUNT 7.2 K/mm3 (4.0-10.0)
[2017-07-19 04:20] LABS: PLATELET COUNT, AUTOMATED 309 k/mm3 (150-450)
[2017-07-19 04:26] LABS: OSMOLALITY SERUM 319 MOSM/KG (275-295)
[2017-07-19 04:35] LABS: ALBUMIN 3.6 GM/DL (3.2-5.2); ALBUMIN/GLOBULIN RATIO 1.03 (1.00-1.93); ALKALINE PHOSPHATASE 93 U/L (45-117); ALT/SGPT 19 U/L (12-78); ANION GAP 17 MEQ/L (8-16); AST/SGOT 8 U/L (15-37); BILIRUBIN,TOTAL 0.5 MG/DL (0.2-1.0); BLOOD UREA NITROGEN 20 MG/DL (7-18); CALCIUM LEVEL 8.6 MG/DL (8.5-10.1); CARBON DIOXIDE LEVEL 10 MEQ/L (21-32); CHLORIDE LEVEL 114 MEQ/L (98-107); CREATININE FOR GFR 1.12 MG/DL (0.55-1.02); GLOMERULAR FILTRATION RATE > 60.0 (>60); GLUCOSE, FASTING 251 MG/DL (70-105); MAGNESIUM LEVEL 2.2 MG/DL (1.8-2.4); POTASSIUM SERUM 3.8 MEQ/L (3.5-5.1); SODIUM LEVEL 141 MEQ/L (136-145); TOTAL PROTEIN 7.1 GM/DL (6.4-8.2)
[2017-07-19] MEDS ORDERED: KCL 10MEQ IN 100ML SWI (KRUN) 10 MEQ in APPROPRIATE DILUENT 1 EA IV ONE ×2 (05:00)
[2017-07-19] MEDS ORDERED: SODIUM PHOSPHATE INJ 30 MMOL in D5W 500 ML IV ONE (05:00)
[2017-07-19 06:15] LABS: ABG BASE EXCESS -17.1 (-2.0-2.0); ABG HCO3 8.1 MEQ/L (22.0-26.0); ABG STANDARD HCO3 11.9 MEQ/L (22.0-26.0); ABG TOTAL CO2 8.7 MEQ/L (22.0-29.0); ABG pH (ARTERIAL) 7.234 UNITS (7.350-7.450)
[2017-07-19 06:16] LABS: ABG PARTIAL PRESSURE CO2 19.6 mmHg (35.0-45.0)
[2017-07-19 06:17] LABS: ABG PARTIAL PRESSURE O2 108.6 mmHg (75.0-100.0)
[2017-07-19] MEDS: KCL 40MEQ IN D5/0.45NS 1000ML 1,000 ML IV SCH ×3 (07:09→20:37)
--- NOTE | 2017-07-19 07:59 | REP ---
Clinical: Chest pain and altered mental status . Comparison: 12/05/2016 . Technique: PA and lateral. Findings: The mediastinum and cardiac silhouette are normal. The lung pike are clear and without acute consolidation, effusion, or pneumothorax. The skeletal structures are intact and normal. Impression: 1. No acute cardiopulmonary process. Signed by Sixto Trimble MD 07/19/2017 07:51 A
[2017-07-19] MEDS: HEPARIN SOD (PORCINE) 5000 UNITS/ML VIAL SQ SCH ×3 (08:15→22:06)
--- NOTE | 2017-07-19 08:16 | REP ---
Clinical: Central line placement . Comparison: 07/18/2017 . Findings: Right IJ line with tip in the SVC. The mediastinum and cardiac silhouette are stable and within normal limits for portable technique. The lung pike are clear without acute consolidation, effusion, or pneumothorax. However, trace right basilar atelectasis cannot be excluded. Skeletal structures are intact. Impression: Right IJ line in satisfactory position. Cannot exclude trace right basilar atelectasis. Signed by Sixto Trimble MD 07/19/2017 08:07 A
[2017-07-19] MEDS ORDERED: ENOXAPARIN 40 MG/0.4 ML SYRINGE (J1650) SC SCH (09:00)
[2017-07-19] MEDS: PANTOPRAZOLE 40MG INJ (PROTONIX) (C9113) IV SCH (09:31)
[2017-07-19] MEDS: INSULIN HUMAN REGULAR 100 UNITS in NS 99 ML IV SCH (09:46)
[2017-07-19 10:29] LABS: ANION GAP 16 MEQ/L (8-16); BLOOD UREA NITROGEN 14 MG/DL (7-18); CALCIUM LEVEL 7.7 MG/DL (8.5-10.1); CARBON DIOXIDE LEVEL 12 MEQ/L (21-32); CHLORIDE LEVEL 112 MEQ/L (98-107); CREATININE FOR GFR 1.08 MG/DL (0.55-1.02); GLOMERULAR FILTRATION RATE > 60.0 (>60); GLUCOSE, FASTING 338 MG/DL (70-105); SODIUM LEVEL 140 MEQ/L (136-145)
[2017-07-19 12:12] VITALS: BP 117/82
--- NOTE | 2017-07-19 12:25 | IPNPDOC ---
Subjective Date Seen The patient was seen on 07/19/17. Subjective Chief Complaint/HPI The patient is a 31-year-old female admitted with a reason for visit of Dka ( Diabetic Ketoacidosis). Events since last encounter feels better this morning , no abdominal pain , no nausea or vomiting or diarrhea, no chest pain or sob , no cough or phlegm Objective Physical Examination General Exam: Positive: Alert, Cooperative, No Acute Distress Eye Exam: Positive: PERRLA, Conjunctiva & lids normal, EOMI, Negative: Sclera icteric ENT Exam: Positive: Atraumatic, Mucous membr. moist/pink, Pharynx Normal Neck Exam: Positive: Supple, Negative: JVD, thyromegaly Chest Exam: Positive: Clear to auscultation, Normal air movement Heart Exam: Positive: Rate Normal, Regular Rhythm, Normal S1, Normal S2, Negative: Murmurs, Rubs Telemetry: Positive: No significant arrhythmia Abdomen Exam: Positive: Normal bowel sounds, Soft, Negative: Tenderness, Hepatospenomegaly Extremity Exam: Positive: Normal pulses, Negative: Clubbing, Cyanosis, Edema Skin Exam: Positive: Nl turgor and temperature, Negative: Rash, Breakdown Assessment /Plan Problems (1) DKA (diabetic ketoacidosis) Onset Date: 03/12/2014 Status: Acute Problem Text: with severe high anion gap metabolic acidemia, hyperkalemia now improving gap closing , bicarbonate rising will continue with insulin gtt. continue with IVF. (2) Acute metabolic encephalopathy Status: Acute Problem Text: due to DKA and severe acidosis. (3) CLYDE (acute kidney injury) Status: Acute Response to Treatment: Improving Problem Text: due to severe dehydration due to DKA improving with IVF. (4) HLD (hyperlipidemia) Status: Chronic (5) Diabetic gastroparesis Status: Chronic Plan/VTE VTE Prophylaxis Ordered?: Yes Plan/Urinary Catheter Reason for insertion/continuin: Critical Pt monitoring VS, I&O, 24H, Fishbone Vital Signs/I&O Vital Signs Date Time Temp Pulse Resp B/P (MAP) Pulse Ox O2 Delivery O2 Flow Rate FiO2 07/19/17 11:45 110 136/85 (102) 98 07/19/17 10:35 98.4 16 07/18/17 15:27 Room Air I&O- Last 24 Hours up to 6 AM 07/19/17 05:59 Intake Total 3000 ml Output Total 200 ml Balance 2800 ml Laboratory Data 24H LABS Laboratory Tests 2 07/18/17 16:57: Anion Gap 23H, Glomerular Filtration Rate 41.8L, Estimated Mean Plasma Glucose 278H, Hemoglobin A1c 11.3H, Calcium Level 10.1, Phosphorus Level 4.6, Magnesium Level 3.0H, Aspartate Amino Transf (AST/SGOT) 22, Alanine Aminotransferase (ALT/ SGPT) 27, Alkaline Phosphatase 125H, Total Bilirubin 0.6, Direct Bilirubin < 0.1 , Total Protein 9.3H, Albumin 4.5, Albumin/Globulin Ratio 0.94L, Lipase 129, Ethyl Alcohol Level < 0.003, B-Hydroxybutyrate > 46.00H 07/18/17 20:50: Blood Gas Bicarbonate Standard 8.0L, Arterial Blood pH 7.066*L, Arterial Blood Partial Pressure CO2 11.9*L, Arterial Blood Partial Pressure O2 129.4H, Arterial Blood Total CO2 3.7L, Arterial Blood HCO3 3.3L, Arterial Blood Base Excess -24.6L, Arterial Blood Oxygen Saturation 98.1 07/18/17 21:04: Urine Appearance CLEAR, Urine Color STRAW, Urine pH 5.0, Urine Specific [place] 1.013, Urine Protein 2+H, Urine Glucose (UA) 3+H, Urine Ketones 2+H, Urine Urobilinogen 0.2, Urine Bilirubin NEGATIVE, Urine Leukocyte Esterase NEGATIVE, Urine Blood 1+H, Urine Nitrite NEGATIVE, Urine WBC (Auto) 1, Urine RBC (Auto) 4H , Urine Hyaline Casts (Auto) 0, Urine Bacteria (Auto) NEGATIVE, Urine Squamous Epithelial Cells 0, Urine Mucus (Auto) SMALL, Urine Sperm (Auto) , Urine Random Osmolality 569, Urine Random Creatinine 21.5, Urine Random Sodium 79, Urine Random Potassium 45.6, Urine Amphetamines Screen NEGATIVE, Urine Benzodiazepines Screen NEGATIVE, Urine Opiates Screen NEGATIVE, Urine Methadone Screen NEGATIVE, Urine Barbiturates Screen NEGATIVE, Urine Phencyclidine Screen NEGATIVE, Urine Cocaine Metabolite Screen NEGATIVE, Urine Cannabinoids Screen NEGATIVE 07/19/17 03:49: Anion Gap 17H, Glomerular Filtration Rate > 60.0, Calcium Level 8.6, Phosphorus Level 2.0#L, Magnesium Level 2.2, Aspartate Amino Transf (AST/SGOT) 8L, Alanine Aminotransferase (ALT/SGPT) 19, Alkaline Phosphatase 93, Total Bilirubin 0.5, Total Protein 7.1#, Albumin 3.6, Albumin/Globulin Ratio 1.03, B-Hydroxybutyrate 38.66H, White Blood Count 7.2, Red Blood Count 4.80, Hemoglobin 14.0#, Hematocrit 41.1, Mean Corpuscular Volume 85.6, Mean Corpuscular Hemoglobin 29.2 , Mean Corpuscular Hemoglobin Concent 34.1, Red Cell Distribution Width 13.4, Platelet Count 309, Neutrophils (%) (Auto) 73.8H, Lymphocytes (%) (Auto) 17.0L, Monocytes (%) (Auto) 6.8H, Eosinophils (%) (Auto) 0.2, Basophils (%) (Auto) 0.4 , Neutrophils # (Auto) 5.3, Lymphocytes # (Auto) 1.4L, Monocytes # (Auto) 0.5, Eosinophils # (Auto) 0.0, Basophils # (Auto) 0.0, Large Unclassified Cells % 1.8 , Large Unclassified Cells # 0.1, Osmolality 319H, Lactic Acid Level 0.5, Blood Urea Nitrogen 20H, Creatinine 1.12H, Sodium Level 141, Potassium Level 3.8#, Chloride Level 114H, Carbon Dioxide Level 10L, Total Creatine Kinase 51, Creatine Kinase MB 1.0, Creatine Kinase MB Relative Index 1.96, Troponin I < 0.02 07/19/17 05:42: Blood Gas Bicarbonate Standard 11.9L, Arterial Blood pH 7.234*L, Arterial Blood Partial Pressure CO2 19.6*L, Arterial Blood Partial Pressure O2 108.6H, Arterial Blood Total CO2 8.7L, Arterial Blood HCO3 8.1L, Arterial Blood Base Excess -17.1L, Arterial Blood Oxygen Saturation 98.2 07/19/17 09:41: Anion Gap 16, Glomerular Filtration Rate > 60.0, Blood Urea Nitrogen 14, Creatinine 1.08H, Sodium Level 140, Potassium Level 4.0, Chloride Level 112H, Carbon Dioxide Level 12L, Calcium Level 7.7L CBC/BMP Laboratory Tests 07/18/17 16:57 Red Blood Count 5.63 H, Mean Corpuscular Volume 89.9, Mean Corpuscular Hemoglobin 29.7, Mean Corpuscular Hemoglobin Concent 33.1, Red Cell Distribution Width 13.4 07/19/17 03:49 Red Blood Count 4.80, Mean Corpuscular Volume 85.6, Mean Corpuscular Hemoglobin 29.2, Mean Corpuscular Hemoglobin Concent 34.1, Red Cell Distribution Width 13.4 , Neutrophils (%) (Auto) 73.8 H, Lymphocytes (%) (Auto) 17.0 L, Monocytes (%) ( Auto) 6.8 H, Eosinophils (%) (Auto) 0.2, Basophils (%) (Auto) 0.4, Neutrophils # (Auto) 5.3, Lymphocytes # (Auto) 1.4 L, Monocytes # (Auto) 0.5, Eosinophils # (Auto) 0.0, Basophils # (Auto) 0.0, Calcium Level 8.6, Phosphorus Level 2.0 #L, Aspartate Amino Transf (AST/SGOT) 8 L, Alanine Aminotransferase (ALT/SGPT) 19, Total Creatine Kinase 51, Alkaline Phosphatase 93, Total Bilirubin 0.5, Total Protein 7.1 #, Albumin 3.6 07/19/17 09:41 Calcium Level 7.7 L Microbiology Microbiology 07/19/17 Blood Culture, Received Pending 07/19/17 Blood Culture, Received Pending 07/18/17 Urine Culture, Received Pending BING MOE MD Jul 19, 2017 12:25
[2017-07-19] MEDS ORDERED: SODIUM CHLORIDE 0.9% INJ 10 ML SYR IV PRN (12:45)
[2017-07-19 14:00] VITALS: BP 114/74
[2017-07-19] MEDS ORDERED: INFLUENZA QUADRIVALENT PF VACCINE 0.5ML SYRINGE (90686) IM SCH (14:00)
[2017-07-19] MEDS: SODIUM CHLORIDE 0.9% INJ 10 ML SYR IV SCH ×2 (14:10→22:00)
[2017-07-19] MEDS ORDERED: INSULIN HUMAN REGULAR 100 UNITS in NS 99 ML IV SCH (15:00)
[2017-07-19 16:00] VITALS: BP 115/76
[2017-07-19] MEDS: INSULIN IV RATE CHANGE DOCUMENTATION ML/HR XX SCH ×4 (16:18→22:03)
[2017-07-19 16:50] LABS: ANION GAP 12 MEQ/L (8-16); BLOOD UREA NITROGEN 10 MG/DL (7-18); CALCIUM LEVEL 8.3 MG/DL (8.5-10.1); CARBON DIOXIDE LEVEL 16 MEQ/L (21-32); CHLORIDE LEVEL 113 MEQ/L (98-107); CREATININE FOR GFR 0.94 MG/DL (0.55-1.02); GLOMERULAR FILTRATION RATE > 60.0 (>60); GLUCOSE, FASTING 209 MG/DL (70-105); POTASSIUM SERUM 3.7 MEQ/L (3.5-5.1); SODIUM LEVEL 141 MEQ/L (136-145)
[2017-07-19 20:00] VITALS: BP 105/66
--- NOTE | 2017-07-19 21:33 | ECGEPIP ---
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
[2017-07-19 22:00] VITALS: BP 99/58
[2017-07-19 22:02] VITALS: BP 122/73
[2017-07-19 22:31] LABS: ANION GAP 11 MEQ/L (8-16); BLOOD UREA NITROGEN 8 MG/DL (7-18); CALCIUM LEVEL 8.5 MG/DL (8.5-10.1); CARBON DIOXIDE LEVEL 17 MEQ/L (21-32); CHLORIDE LEVEL 112 MEQ/L (98-107); CREATININE FOR GFR 0.86 MG/DL (0.55-1.02); GLOMERULAR FILTRATION RATE > 60.0 (>60); GLUCOSE, FASTING 231 MG/DL (70-105); POTASSIUM SERUM 3.7 MEQ/L (3.5-5.1); SODIUM LEVEL 140 MEQ/L (136-145)
[2017-07-19] MEDS ORDERED: POTASSIUM CHLORIDE 10 MEQ SR TABLET PO ONE (23:15)
[2017-07-19 23:38] LABS: ABG BASE EXCESS -8.2 (-2.0-2.0); ABG HCO3 15.4 MEQ/L (22.0-26.0); ABG PARTIAL PRESSURE CO2 26.3 mmHg (35.0-45.0); ABG PARTIAL PRESSURE O2 138.2 mmHg (75.0-100.0); ABG STANDARD HCO3 17.9 MEQ/L (22.0-26.0); ABG TOTAL CO2 16.2 MEQ/L (22.0-29.0); ABG pH (ARTERIAL) 7.385 UNITS (7.350-7.450)
[2017-07-20] VITALS (10 sets, daily range): BP systolic 96–121; BP diastolic 53–87
[2017-07-20] MEDS: KCL 40MEQ IN D5/0.45NS 1000ML 1,000 ML IV SCH (03:04)
[2017-07-20] MEDS: INSULIN IV RATE CHANGE DOCUMENTATION ML/HR XX SCH (03:05)
[2017-07-20] MEDS: SODIUM CHLORIDE 0.9% INJ 10 ML SYR IV SCH ×3 (05:49→21:37)
[2017-07-20] MEDS: HEPARIN SOD (PORCINE) 5000 UNITS/ML VIAL SQ SCH ×3 (05:49→21:38)
[2017-07-20 06:18] LABS: BASO % 0.3 % (0.0-1.0); EOS % 0.5 % (0.0-3.0); LARGE UNSTAINED CELL # 0.1 K/mm3 (0.0-0.4); LARGE UNSTAINED CELL % 2.1 % (0.0-4.0); LYMPH # 1.4 K/mm3 (1.5-6.5); LYMPH % 43.3 % (24.0-44.0); MEAN CORPUSCULAR HEMOGLOBIN 29.9 pg (27.0-33.0); MEAN CORPUSCULAR HGB CONC 35.5 g/dl (32.0-36.5); MEAN CORPUSCULAR VOLUME 84.4 fl (80.0-96.0); MONO # 0.2 K/mm3 (0.0-0.8); MONO % 5.6 % (0.0-5.0); NEUTROPHILS # 1.5 K/mm3 (1.8-7.7); NEUTROPHILS % 48.2 % (36.0-66.0); PLATELET COUNT, AUTOMATED 210 k/mm3 (150-450); WHITE BLOOD COUNT 3.1 K/mm3 (4.0-10.0)
[2017-07-20 06:31] LABS: ALBUMIN 2.8 GM/DL (3.2-5.2); ALBUMIN/GLOBULIN RATIO 0.93 (1.00-1.93); ALKALINE PHOSPHATASE 75 U/L (45-117); ALT/SGPT 16 U/L (12-78); ANION GAP 13 MEQ/L (8-16); AST/SGOT 11 U/L (15-37); BILIRUBIN,TOTAL 0.4 MG/DL (0.2-1.0); BLOOD UREA NITROGEN 5 MG/DL (7-18); CALCIUM LEVEL 8.8 MG/DL (8.5-10.1); CARBON DIOXIDE LEVEL 18 MEQ/L (21-32); CHLORIDE LEVEL 115 MEQ/L (98-107); CREATININE FOR GFR 0.77 MG/DL (0.55-1.02); GLOMERULAR FILTRATION RATE > 60.0 (>60); GLUCOSE, FASTING 176 MG/DL (70-105); MAGNESIUM LEVEL 1.8 MG/DL (1.8-2.4); SODIUM LEVEL 146 MEQ/L (136-145); TOTAL PROTEIN 5.8 GM/DL (6.4-8.2)
[2017-07-20] MEDS ORDERED: GLUCOSE 4 GM CHEW TABLET PO PRN (06:45)
[2017-07-20] MEDS ORDERED: GLUCAGON FOR INJ 1 MG VIAL (J1610) SC PRN (06:45)
[2017-07-20] MEDS ORDERED: DEXTROSE 50% 50 ML SYRINGE IV PRN (06:45)
[2017-07-20] MEDS ORDERED: LEVEMIR (INSULIN DETEMIR) 1 UNITS/0.01ML SC ONE (06:45)
[2017-07-20] MEDS: HumaLOG INSULIN (NovoLOG) PER UNIT SC SCH ×4 (07:30→17:53)
[2017-07-20] MEDS: PANTOPRAZOLE 40MG INJ (PROTONIX) (C9113) IV SCH (09:02)
[2017-07-20 11:12] LABS: ANION GAP 12 MEQ/L (8-16); BLOOD UREA NITROGEN 5 MG/DL (7-18); CALCIUM LEVEL 8.9 MG/DL (8.5-10.1); CARBON DIOXIDE LEVEL 18 MEQ/L (21-32); CHLORIDE LEVEL 115 MEQ/L (98-107); GLOMERULAR FILTRATION RATE > 60.0 (>60); GLUCOSE, FASTING 153 MG/DL (70-105); SODIUM LEVEL 145 MEQ/L (136-145)
--- NOTE | 2017-07-20 12:45 | IPNPDOC ---
Subjective Date Seen The patient was seen on 07/20/17. Subjective Chief Complaint/HPI The patient is a 31-year-old female admitted with a reason for visit of Dka ( Diabetic Ketoacidosis). Events since last encounter no complaints today, no nausea or vomiting or diarrhea. Objective Physical Examination General Exam: Positive: Alert, Cooperative, No Acute Distress Eye Exam: Positive: PERRLA, Conjunctiva & lids normal, EOMI, Negative: Sclera icteric ENT Exam: Positive: Atraumatic, Mucous membr. moist/pink, Pharynx Normal Neck Exam: Positive: Supple, Negative: JVD, thyromegaly Chest Exam: Positive: Clear to auscultation, Normal air movement Heart Exam: Positive: Rate Normal, Regular Rhythm, Normal S1, Normal S2, Negative: Murmurs, Rubs Telemetry: Positive: No significant arrhythmia Abdomen Exam: Positive: Normal bowel sounds, Soft, Negative: Tenderness, Hepatospenomegaly Extremity Exam: Positive: Normal pulses, Negative: Clubbing, Cyanosis, Edema Skin Exam: Positive: Nl turgor and temperature, Negative: Rash, Breakdown Assessment /Plan Problems (1) DKA (diabetic ketoacidosis) Onset Date: 03/12/2014 Status: Resolved Problem Text: with severe high anion gap metabolic acidemia, hyperkalemia now resolved. have switched to sub cut insulin today. (2) Acute metabolic encephalopathy Status: Resolved Problem Text: due to DKA and severe acidosis. (3) CLYDE (acute kidney injury) Status: Resolved Problem Text: due to severe dehydration due to DKA (4) HLD (hyperlipidemia) Status: Chronic (5) Diabetic gastroparesis Status: Chronic Plan/VTE VTE Prophylaxis Ordered?: Yes Plan/Urinary Catheter Reason for insertion/continuin: Critical Pt monitoring VS, I&O, 24H, [facility] Vital Signs/I&O Vital Signs Date Time Temp Pulse Resp B/P (MAP) Pulse Ox O2 Delivery O2 Flow Rate FiO2 07/20/17 10:00 103 18 121/73 (89) 98 Room Air 07/20/17 08:00 98.8 I&O- Last 24 Hours up to 6 AM 07/20/17 06:00 Intake Total 2779 ml Output Total 1625 ml Balance 1154 ml Laboratory Data 24H LABS Laboratory Tests 2 07/19/17 13:03: Bedside Glucose (Misc Panel) 245H 07/19/17 14:07: Bedside Glucose (Misc Panel) 222H 07/19/17 15:04: Bedside Glucose (Misc Panel) 204H 07/19/17 16:15: Anion Gap 12, Glomerular Filtration Rate > 60.0, Blood Urea Nitrogen 10, Creatinine 0.94, Sodium Level 141, Potassium Level 3.7, Chloride Level 113H, Carbon Dioxide Level 16L, Calcium Level 8.3L 07/19/17 16:17: Bedside Glucose (Misc Panel) 196H 07/19/17 17:09: Bedside Glucose (Misc Panel) 199H 07/19/17 17:57: Bedside Glucose (Misc Panel) 226H 07/19/17 19:07: Bedside Glucose (Misc Panel) 220H 07/19/17 20:00: Bedside Glucose (Misc Panel) 198H 07/19/17 20:58: Bedside Glucose (Misc Panel) 195H 07/19/17 21:59: Bedside Glucose (Misc Panel) 220H, Anion Gap 11, Glomerular Filtration Rate > 60.0, Blood Urea Nitrogen 8, Creatinine 0.86, Sodium Level 140, Potassium Level 3.7, Chloride Level 112H, Carbon Dioxide Level 17L, Calcium Level 8.5 07/19/17 23:01: Bedside Glucose (Misc Panel) 219H 07/19/17 23:26: Blood Gas Bicarbonate Standard 17.9L, Arterial Blood pH 7.385, Arterial Blood Partial Pressure CO2 26.3L, Arterial Blood Partial Pressure O2 138.2H, Arterial Blood Total CO2 16.2L, Arterial Blood HCO3 15.4L, Arterial Blood Base Excess - 8.2L, Arterial Blood Oxygen Saturation 98.4 07/20/17 00:01: Bedside Glucose (Misc Panel) 225H 07/20/17 00:58: Bedside Glucose (Misc Panel) 205H 07/20/17 02:03: Bedside Glucose (Misc Panel) 200H 07/20/17 03:02: Bedside Glucose (Misc Panel) 186H 07/20/17 04:07: Bedside Glucose (Misc Panel) 185H 07/20/17 05:04: Bedside Glucose (Misc Panel) 183H 07/20/17 05:51: White Blood Count 3.1L, Red Blood Count 3.97L, Hemoglobin 11.9#L, Hematocrit 33.5L, Mean Corpuscular Volume 84.4, Mean Corpuscular Hemoglobin 29.9, Mean Corpuscular Hemoglobin Concent 35.5, Red Cell Distribution Width 13.0, Platelet Count 210, Neutrophils (%) (Auto) 48.2, Lymphocytes (%) (Auto) 43.3, Monocytes ( %) (Auto) 5.6H, Eosinophils (%) (Auto) 0.5, Basophils (%) (Auto) 0.3, Neutrophils # (Auto) 1.5L, Lymphocytes # (Auto) 1.4L, Monocytes # (Auto) 0.2, Eosinophils # (Auto) 0.0, Basophils # (Auto) 0.0, Large Unclassified Cells % 2.1 , Large Unclassified Cells # 0.1, Anion Gap 13, Glomerular Filtration Rate > 60.0, Blood Urea Nitrogen 5L, Creatinine 0.77, Sodium Level 146H, Potassium Level 4.0, Chloride Level 115H, Carbon Dioxide Level 18L, Calcium Level 8.8, Aspartate Amino Transf (AST/SGOT) 11L, Alanine Aminotransferase (ALT/SGPT) 16, Alkaline Phosphatase 75, Total Bilirubin 0.4, Total Protein 5.8L, Albumin 2.8#L , Magnesium Level 1.8, Albumin/Globulin Ratio 0.93L, B-Hydroxybutyrate 2.63 07/20/17 05:55: Bedside Glucose (Misc Panel) 160H 07/20/17 07:11: Bedside Glucose (Misc Panel) 183H 07/20/17 10:37: Anion Gap 12, Glomerular Filtration Rate > 60.0, Blood Urea Nitrogen 5L, Creatinine 0.90, Sodium Level 145, Potassium Level 4.0, Chloride Level 115H, Carbon Dioxide Level 18L, Calcium Level 8.9 CBC/BMP Laboratory Tests 07/19/17 16:15 Calcium Level 8.3 L 07/19/17 21:59 Calcium Level 8.5 07/20/17 05:51 Calcium Level 8.8, Red Blood Count 3.97 L, Mean Corpuscular Volume 84.4, Mean Corpuscular Hemoglobin 29.9, Mean Corpuscular Hemoglobin Concent 35.5, Red Cell Distribution Width 13.0, Neutrophils (%) (Auto) 48.2, Lymphocytes (%) (Auto) 43.3, Monocytes (%) (Auto) 5.6 H, Eosinophils (%) (Auto) 0.5, Basophils (%) ( Auto) 0.3, Neutrophils # (Auto) 1.5 L, Lymphocytes # (Auto) 1.4 L, Monocytes # ( Auto) 0.2, Eosinophils # (Auto) 0.0, Basophils # (Auto) 0.0, Aspartate Amino Transf (AST/SGOT) 11 L, Alanine Aminotransferase (ALT/SGPT) 16, Alkaline Phosphatase 75, Total Bilirubin 0.4, Total Protein 5.8 L, Albumin 2.8 #L 07/20/17 10:37 Calcium Level 8.9 Microbiology Microbiology 07/19/17 Blood Culture - Preliminary, Resulted No growth after 24 hours . All specim... 07/19/17 Blood Culture - Preliminary, Resulted No growth after 24 hours . All specim... 07/18/17 Urine Culture - Final, Complete BING MOE MD Jul 20, 2017 12:45
[2017-07-20 18:34] LABS: ANION GAP 12 MEQ/L (8-16); BLOOD UREA NITROGEN 8 MG/DL (7-18); CALCIUM LEVEL 7.8 MG/DL (8.5-10.1); CARBON DIOXIDE LEVEL 20 MEQ/L (21-32); CHLORIDE LEVEL 111 MEQ/L (98-107); GLOMERULAR FILTRATION RATE > 60.0 (>60); GLUCOSE, FASTING 373 MG/DL (70-105); POTASSIUM SERUM 4.2 MEQ/L (3.5-5.1); SODIUM LEVEL 143 MEQ/L (136-145)
[2017-07-20] MEDS ORDERED: HumaLOG INSULIN (NovoLOG) PER UNIT SC SCH (21:00)
[2017-07-21 04:00] VITALS: BP 129/81
[2017-07-21] MEDS: SODIUM CHLORIDE 0.9% INJ 10 ML SYR IV SCH (05:19)
[2017-07-21] MEDS: HEPARIN SOD (PORCINE) 5000 UNITS/ML VIAL SQ SCH ×2 (05:19→13:18)
[2017-07-21 05:38] LABS: BASO % 0.3 % (0.0-1.0); EOS % 0.5 % (0.0-3.0); LARGE UNSTAINED CELL # 0.1 K/mm3 (0.0-0.4); LARGE UNSTAINED CELL % 2.1 % (0.0-4.0); LYMPH # 1.3 K/mm3 (1.5-6.5); LYMPH % 53.9 % (24.0-44.0); MEAN CORPUSCULAR HEMOGLOBIN 30.1 pg (27.0-33.0); MEAN CORPUSCULAR HGB CONC 35.1 g/dl (32.0-36.5); MEAN CORPUSCULAR VOLUME 85.6 fl (80.0-96.0); MONO # 0.2 K/mm3 (0.0-0.8); MONO % 6.5 % (0.0-5.0); NEUTROPHILS # 0.9 K/mm3 (1.8-7.7); NEUTROPHILS % 36.7 % (36.0-66.0); PLATELET COUNT, AUTOMATED 156 k/mm3 (150-450); RED CELL DISTRIBUTION WIDTH 12.9 % (11.5-14.5); WHITE BLOOD COUNT 2.3 K/mm3 (4.0-10.0)
[2017-07-21 05:53] LABS: ALBUMIN 2.6 GM/DL (3.2-5.2); ALBUMIN/GLOBULIN RATIO 0.96 (1.00-1.93); ALKALINE PHOSPHATASE 77 U/L (45-117); ALT/SGPT 18 U/L (12-78); ANION GAP 6 MEQ/L (8-16); AST/SGOT 14 U/L (15-37); BILIRUBIN,TOTAL 0.3 MG/DL (0.2-1.0); BLOOD UREA NITROGEN 11 MG/DL (7-18); CALCIUM LEVEL 8.2 MG/DL (8.5-10.1); CARBON DIOXIDE LEVEL 25 MEQ/L (21-32); CHLORIDE LEVEL 113 MEQ/L (98-107); CREATININE FOR GFR 0.74 MG/DL (0.55-1.02); GLOMERULAR FILTRATION RATE > 60.0 (>60); GLUCOSE, FASTING 329 MG/DL (70-105); MAGNESIUM LEVEL 2.1 MG/DL (1.8-2.4); POTASSIUM SERUM 3.4 MEQ/L (3.5-5.1); SODIUM LEVEL 144 MEQ/L (136-145); TOTAL PROTEIN 5.3 GM/DL (6.4-8.2)
[2017-07-21] MEDS ORDERED: POTASSIUM CHLORIDE 10 MEQ SR TABLET PO ONE (08:00)
[2017-07-21] MEDS: HumaLOG INSULIN (NovoLOG) PER UNIT SC SCH ×2 (08:54→13:18)
[2017-07-21] MEDS: PANTOPRAZOLE 40MG INJ (PROTONIX) (C9113) IV SCH (08:56)
[2017-07-21] MEDS ORDERED: LEVEMIR (INSULIN DETEMIR) 1 UNITS/0.01ML SC SCH (09:00)
--- NOTE | 2017-07-21 14:32 | DSES ---
DATE OF ADMISSION: 07/18/2017 DATE OF DISCHARGE: 07/21/2017 PRIMARY CARE PROVIDER: NATAN Davila DISCHARGE DIAGNOSES: 1. Diabetic ketoacidosis. 2. Acute metabolic encephalopathy. 3. Acute kidney injury. 4. Hyperlipidemia. 5. Diabetic gastroparesis. 6. Electrolyte imbalance. DISCHARGE MEDICATIONS: - Tresiba insulin 45 units once a day - aspart insulin before meals and at bedtime as per sliding scale - acetaminophen 1000 mg by mouth every 6 hours as needed for pain - atropine sulfate 1% solution one drop in both eyes twice a day - Durezol 0.05% one drop in both eyes twice a day HOSPITAL COURSE: This is a 31-year-old female with type 1 diabetes who presented to the emergency room because of increased sleepiness and drowsiness when she was found at home by her coworker. She also complained of nausea, vomiting and headache. On the day of admission, she slept all day so her coworker came to investigate as she failed to answer any phone calls and found her to be lethargic and brought her to the operating room. In the emergency department, the patient was noted to be in diabetic ketoacidosis (DKA) with severe high anion gap, metabolic acidosis, electrolyte imbalance and acute kidney injury with severe dehydration. Patient was also noted to be in acute metabolic encephalopathy due to severe DKA. Patient was started on aggressive IV hydration and IV insulin infusion. Patient was admitted to the intensive care unit. Patient responded well to treatment with improvement in her renal functions, improvement in her acidosis and improvement in her bicarb level and closing up gap. Patient was subsequently transitioned to subcu insulin and she was started on diet, which she tolerated. At present, patient does not have any complaints. Her vitals are stable and she is functioning at baseline. PHYSICAL EXAMINATION: VITAL SIGNS: Temperature 99.9, pulse 80, respiratory rate 18, blood pressure 129/81, pulse oximetry 98% in room air. GENERAL: Patient awake, alert and oriented times three sitting up in bed in no acute distress. HEENT: Normocephalic, atraumatic. Moist mucous membranes. Anicteric eyes. CHEST: Clear to auscultation. CARDIOVASCULAR: S1, S2 regular. No rub, murmur or gallop. ABDOMEN: Soft, nontender. Bowel sounds present. EXTREMITIES: No edema. LABORATORY DATA: WBC 2.3, hemoglobin 11.3, platelets 156, sodium 144, potassium 3.4, chloride 113, bicarb 25, BUN 11, creatinine 0.7, anion gap 6, glucose 329, calcium 8.2, A1c 11.3, calcium 8.2, albumin 2.6. Liver function tests are normal. Chest x-ray no acute consolidation. There is some right basilar atelectasis. Blood culture not growth in the first 48 hours. Urine culture negative. DISPOSITION: Patient is discharged home in stable condition. DISCHARGE INSTRUCTIONS: Patient to followup with primary care provider in one week. Carbohydrate consistent diet. Activity as tolerated.
== END 2017-07-21 15:40 | disposition home or self-care (01) | DRG 420 ==
LOC: M ED 15:26 → EEVIPCON 21:25 → M ED INP 21:25 → M ICU 07-19 12:04 → M MS4PR 07-20 17:20
PROVIDERS: ADMIT Internal Medicine; ATTEND Internal Medicine Nephrology
DX: E10.10 Type 1 diabetes mellitus with ketoacidosis without coma (principal); G93.41 Metabolic encephalopathy; N17.9 Acute kidney failure, unspecified; D75.1 Secondary polycythemia; E87.5 Hyperkalemia; E10.43 Type 1 diabetes mellitus with diabetic autonomic (poly)neuropathy; E78.5 Hyperlipidemia, unspecified; Z79.4 Long term (current) use of insulin; Z79.899 Other long term (current) drug therapy

== ENCOUNTER → 2018-01-05 | Outpatient (REF) | payer BC | LOC: M LAB REF 11:45 | DX: J02.0 Streptococcal pharyngitis (principal) ==

== ENCOUNTER 2018-01-14 19:06 | Emergency (ER) | payer BC ==
[2018-01-14] MEDS: NS 1,000 ML IV (20:40)
[2018-01-14] MEDS: ONDANSETRON 4MG/2ML VIAL (J2405) IV (20:40)
[2018-01-14 21:21] LABS: BASO % 0.2 % (0.0-1.0); HEMATOCRIT 50.7 % (36.0-47.0); HEMOGLOBIN 16.9 g/dl (12.0-16.0); IMMATURE GRANULOCYTE % 0.5 % (0-3.0); LYMPH # 0.8 10^3/uL (1.5-4.5); LYMPH % 9.7 % (24.0-44.0); MEAN CORPUSCULAR HEMOGLOBIN 28.4 pg (27.0-33.0); MEAN CORPUSCULAR HGB CONC 33.3 g/dl (32.0-36.5); MEAN CORPUSCULAR VOLUME 85.1 fl (80.0-96.0); MONO # 0.6 10^3/uL (0.0-0.8); MONO % 6.8 % (0.0-5.0); NEUTROPHILS # 6.8 10^3/uL (1.8-7.7); NEUTROPHILS % 82.8 % (36.0-66.0); PLATELET COUNT, AUTOMATED 233 10^3/uL (150-450); RED BLOOD COUNT 5.96 10^6/uL (4.00-5.40); RED CELL DISTRIBUTION WIDTH 13.8 % (11.5-14.5); WHITE BLOOD COUNT 8.2 10^3/uL (4.0-10.0)
[2018-01-14 21:43] LABS: ANION GAP 15 MEQ/L (8-16); BLOOD UREA NITROGEN 20 MG/DL (7-18); CALCIUM LEVEL 9.5 MG/DL (8.5-10.1); CARBON DIOXIDE LEVEL 12 MEQ/L (21-32); CHLORIDE LEVEL 115 MEQ/L (98-107); GLOMERULAR FILTRATION RATE 51.2 (>60); GLUCOSE, FASTING 119 MG/DL (70-100); POTASSIUM SERUM 3.9 MEQ/L (3.5-5.1); SODIUM LEVEL 142 MEQ/L (136-145)
[2018-01-15] MEDS: ONDANSETRON 4 MG ORAL DISINTEGRATING TAB (S0181) PO (00:53)
[2018-01-18 09:40] LABS: BEDSIDE GLUCOSE 83 MG/DL (70-105)
== END 2018-01-15 01:11 | disposition home or self-care (01) ==
LOC: M ED 01-15 01:11
DX: E86.0 Dehydration (principal); R11.2 Nausea with vomiting, unspecified; I10 Essential (primary) hypertension; E78.5 Hyperlipidemia, unspecified; D72.819 Decreased white blood cell count, unspecified; Z87.19 Personal history of other diseases of the digestive system; Z87.440 Personal history of urinary (tract) infections; Z79.899 Other long term (current) drug therapy; Z87.891 Personal history of nicotine dependence
CPT/HCPCS: J2405

== ENCOUNTER 2018-02-11 17:27 | Emergency (ER) | payer BC ==
[2018-02-11] MEDS: NS 1,000 ML IV ×2 (18:56→21:15)
[2018-02-11] MEDS: HumuLIN R (REGULAR) INSULIN (NovoLIN R) **100U/ML** PER UNIT IV (18:56)
[2018-02-11] MEDS: AMPICILLIN SOD/SULBACTAM SOD 3 GM in D5W MINI-BAG PLUS 100 ML IV (19:32)
[2018-02-11 20:06] LABS: ALBUMIN 3.2 GM/DL (3.2-5.2); ALBUMIN/GLOBULIN RATIO 0.67 (1.00-1.93); ALKALINE PHOSPHATASE 109 U/L (45-117); ALT/SGPT 16 U/L (12-78); ANION GAP 8 MEQ/L (8-16); AST/SGOT 12 U/L (7-37); BILIRUBIN,TOTAL 0.6 MG/DL (0.2-1.0); BLOOD UREA NITROGEN 13 MG/DL (7-18); CALCIUM LEVEL 8.8 MG/DL (8.5-10.1); CARBON DIOXIDE LEVEL 26 MEQ/L (21-32); CHLORIDE LEVEL 102 MEQ/L (98-107); CREATININE FOR GFR 0.96 MG/DL (0.55-1.30); GLOMERULAR FILTRATION RATE > 60.0 (>60); GLUCOSE, FASTING 350 MG/DL (70-100); POTASSIUM SERUM 3.8 MEQ/L (3.5-5.1); SODIUM LEVEL 136 MEQ/L (136-145)
[2018-02-11 20:07] LABS: BASO % 0.3 % (0.0-1.0); EOS # 0.1 10^3/uL (0.0-0.50); EOS % 1.2 % (0.0-3.0); HEMATOCRIT 36.2 % (36.0-47.0); HEMOGLOBIN 11.9 g/dl (12.0-15.5); IMMATURE GRANULOCYTE % 0.3 % (0-3.0); LYMPH # 1.3 10^3/uL (1.5-4.5); LYMPH % 18.3 % (24.0-44.0); MEAN CORPUSCULAR HEMOGLOBIN 28.1 pg (27.0-33.0); MEAN CORPUSCULAR HGB CONC 32.9 g/dl (32.0-36.5); MEAN CORPUSCULAR VOLUME 85.4 fl (80.0-96.0); MONO # 0.6 10^3/uL (0.0-0.8); MONO % 8.5 % (0.0-5.0); NEUTROPHILS # 5.2 10^3/uL (1.8-7.7); NEUTROPHILS % 71.4 % (36.0-66.0); PLATELET COUNT, AUTOMATED 193 10^3/uL (150-450); RED BLOOD COUNT 4.24 10^6/uL (4.00-5.40); RED CELL DISTRIBUTION WIDTH 13.4 % (11.5-14.5); WHITE BLOOD COUNT 7.3 10^3/uL (4.0-10.0)
[2018-02-11 20:44] LABS: LACTIC ACID SEPSIS PROTOCOL 2.5 MMOL/L (0.4-2.0)
[2018-02-11 21:22] LABS: BEDSIDE GLUCOSE 280 MG/DL (70-105)
[2018-02-11 22:49] LABS: LACTIC ACID SEPSIS PROTOCOL 1.1 MMOL/L (0.4-2.0)
== END 2018-02-11 23:36 | disposition home or self-care (01) ==
LOC: M ED 17:27
DX: L03.114 Cellulitis of left upper limb (principal); E10.9 Type 1 diabetes mellitus without complications; Z79.899 Other long term (current) drug therapy; Z79.2 Long term (current) use of antibiotics
CPT/HCPCS: 93005

== ENCOUNTER → 2018-02-11 | Outpatient (CLI) | payer BC ==
[2018-02-11 12:13] LABS: BASO % 0.2 % (0.0-1.0); EOS # 0.1 10^3/uL (0.0-0.50); EOS % 0.8 % (0.0-3.0); HEMATOCRIT 39.4 % (36.0-47.0); HEMOGLOBIN 12.8 g/dl (12.0-15.5); IMMATURE GRANULOCYTE % 0.3 % (0-3.0); LYMPH % 11.6 % (24.0-44.0); MEAN CORPUSCULAR HEMOGLOBIN 28.3 pg (27.0-33.0); MEAN CORPUSCULAR HGB CONC 32.5 g/dl (32.0-36.5); MEAN CORPUSCULAR VOLUME 87.2 fl (80.0-96.0); MONO # 0.8 10^3/uL (0.0-0.8); MONO % 8.9 % (0.0-5.0); NEUTROPHILS # 6.9 10^3/uL (1.8-7.7); NEUTROPHILS % 78.2 % (36.0-66.0); PLATELET COUNT, AUTOMATED 193 10^3/uL (150-450); RED BLOOD COUNT 4.52 10^6/uL (4.00-5.40); RED CELL DISTRIBUTION WIDTH 13.2 % (11.5-14.5); WHITE BLOOD COUNT 8.9 10^3/uL (4.0-10.0)
== END ==
LOC: M WUC 10:50
DX: L03.112 Cellulitis of left axilla (principal)
CPT/HCPCS: 85025

== ENCOUNTER 2018-03-15 13:00 | Emergency (ER) | payer BC ==
[2018-03-15 14:07] LABS: ABG PARTIAL PRESSURE CO2 30.9 mmHg (35.0-45.0); ABG PARTIAL PRESSURE O2 103.7 mmHg (75.0-100.0); ABG STANDARD HCO3 18.9 MEQ/L (22.0-26.0); ABG pH (ARTERIAL) 7.359 UNITS (7.350-7.450)
[2018-03-15 15:09] LABS: BASO % 0.3 % (0.0-1.0); EOS % 0.1 % (0.0-3.0); HEMATOCRIT 44.9 % (36.0-47.0); HEMOGLOBIN 15.2 g/dl (12.0-15.5); IMMATURE GRANULOCYTE % 0.4 % (0-3.0); LYMPH # 1.4 10^3/uL (1.5-4.5); LYMPH % 19.5 % (24.0-44.0); MEAN CORPUSCULAR HGB CONC 33.9 g/dl (32.0-36.5); MEAN CORPUSCULAR VOLUME 82.8 fl (80.0-96.0); MONO # 0.6 10^3/uL (0.0-0.8); MONO % 7.8 % (0.0-5.0); NEUTROPHILS # 5.1 10^3/uL (1.8-7.7); NEUTROPHILS % 71.9 % (36.0-66.0); PLATELET COUNT, AUTOMATED 276 10^3/uL (150-450); RED BLOOD COUNT 5.42 10^6/uL (4.00-5.40); RED CELL DISTRIBUTION WIDTH 13.1 % (11.5-14.5); WHITE BLOOD COUNT 7.1 10^3/uL (4.0-10.0)
[2018-03-15] MEDS: NS 1,000 ML IV (15:14)
[2018-03-15] MEDS: METOCLOPRAMIDE INJ 10MG/2ML VIAL (J2765) IV (15:14)
[2018-03-15 15:27] LABS: ANION GAP 10 MEQ/L (8-16); BLOOD UREA NITROGEN 21 MG/DL (7-18); CALCIUM LEVEL 9.6 MG/DL (8.5-10.1); CARBON DIOXIDE LEVEL 20 MEQ/L (21-32); CHLORIDE LEVEL 106 MEQ/L (98-107); CREATININE FOR GFR 1.05 MG/DL (0.55-1.30); GLOMERULAR FILTRATION RATE > 60.0 (>60); GLUCOSE, FASTING 135 MG/DL (70-100); SODIUM LEVEL 136 MEQ/L (136-145)
== END 2018-03-15 18:33 | disposition home or self-care (01) ==
LOC: M ED 13:00
DX: R11.2 Nausea with vomiting, unspecified (principal); E10.9 Type 1 diabetes mellitus without complications; Z91.19 Patient's noncompliance with other medical treatment and regimen; F17.200 Nicotine dependence, unspecified, uncomplicated
CPT/HCPCS: J2765

== ENCOUNTER 2018-05-18 10:02 | Emergency (ER) | payer SELFPAY, BC ==
[2018-05-18 11:53] LABS: KETONE, URINE AUTO RFX 2+ mg/dL (NEGATIVE); MUCUS, URINE RFX SMALL (NEGATIVE); NITRITE, URINE AUTO RFX NEGATIVE (NEGATIVE); RBC, URINE AUTO RFX 29 /HPF (0-3); SQUAM EPITHELIAL CELL UR AURFX 5 /HPF (0-6)
[2018-05-18 11:55] LABS: LEUKOCYTE ESTERASE UR AUTO RFX 3+ (NEGATIVE); WBC, URINE AUTO RFX TNTC /HPF (0-3)
[2018-05-18] MEDS: ONDANSETRON 4MG/2ML VIAL (J2405) IV (12:32)
[2018-05-18] MEDS: NS 1,000 ML IV ×2 (12:32→14:17)
[2018-05-18] MEDS: KETOROLAC 30 MG/ML VIAL (J1885) IV (12:37)
[2018-05-18 12:50] LABS: BASO % 0.3 % (0.0-1.0); HEMATOCRIT 40.5 % (36.0-47.0); HEMOGLOBIN 13.4 g/dl (12.0-15.5); IMMATURE GRANULOCYTE % 0.4 % (0-3.0); LYMPH # 0.5 10^3/uL (1.5-4.5); LYMPH % 7.1 % (24.0-44.0); MEAN CORPUSCULAR HGB CONC 33.1 g/dl (32.0-36.5); MEAN CORPUSCULAR VOLUME 81.5 fl (80.0-96.0); MONO # 0.6 10^3/uL (0.0-0.8); MONO % 9.2 % (0.0-5.0); NEUTROPHILS # 5.8 10^3/uL (1.8-7.7); PLATELET COUNT, AUTOMATED 205 10^3/uL (150-450); RED BLOOD COUNT 4.97 10^6/uL (4.00-5.40); RED CELL DISTRIBUTION WIDTH 12.8 % (11.5-14.5); WHITE BLOOD COUNT 6.9 10^3/uL (4.0-10.0)
[2018-05-18 13:05] LABS: ALBUMIN 3.2 GM/DL (3.2-5.2); ALBUMIN/GLOBULIN RATIO 0.63 (1.00-1.93); ALKALINE PHOSPHATASE 124 U/L (45-117); ALT/SGPT 16 U/L (12-78); ANION GAP 14 MEQ/L (8-16); AST/SGOT 9 U/L (7-37); BILIRUBIN,DIRECT 0.1 MG/DL (0.0-0.2); BILIRUBIN,TOTAL 0.6 MG/DL (0.2-1.0); BLOOD UREA NITROGEN 11 MG/DL (7-18); CALCIUM LEVEL 9.1 MG/DL (8.5-10.1); CARBON DIOXIDE LEVEL 19 MEQ/L (21-32); CHLORIDE LEVEL 103 MEQ/L (98-107); CREATININE FOR GFR 1.01 MG/DL (0.55-1.30); GLOMERULAR FILTRATION RATE > 60.0 (>60); GLUCOSE, FASTING 346 MG/DL (70-100); LIPASE 59 U/L (73-393); POTASSIUM SERUM 3.8 MEQ/L (3.5-5.1); SODIUM LEVEL 136 MEQ/L (136-145); TOTAL PROTEIN 8.3 GM/DL (6.4-8.2)
[2018-05-18 13:10] LABS: CONTROL LINE UCG INT CTR LINE PRESENT; URINE PREG TEST NEGATIVE (NEGATIVE)
[2018-05-18] MEDS: cefTRIAXone SOD 1 GM in D5W MINI-BAG PLUS 50 ML IV (13:30)
[2018-05-18 13:52] LABS: BEDSIDE GLUCOSE 288 MG/DL (70-105)
== END 2018-05-18 15:19 | disposition home or self-care (01) ==
LOC: M ED 10:02
DX: N10 Acute pyelonephritis (principal); R19.7 Diarrhea, unspecified; N93.9 Abnormal uterine and vaginal bleeding, unspecified; E10.9 Type 1 diabetes mellitus without complications; E78.5 Hyperlipidemia, unspecified; R51 Headache; Z79.899 Other long term (current) drug therapy
CPT/HCPCS: J2405

== ENCOUNTER 2018-05-20 07:43 | Inpatient (IN) | payer SELFPAY ==
[2018-05-20 08:27] LABS: BEDSIDE GLUCOSE 399 MG/DL (70-105)
[2018-05-20 08:53] LABS: AMORPHOUS SEDIMENT RFX SMALL (NEGATIVE); KETONE, URINE AUTO RFX 2+ mg/dL (NEGATIVE); LEUKOCYTE ESTERASE UR AUTO RFX NEGATIVE (NEGATIVE); MUCUS, URINE RFX SMALL (NEGATIVE); NITRITE, URINE AUTO RFX NEGATIVE (NEGATIVE); RBC, URINE AUTO RFX 4 /HPF (0-3); SPECIFIC GRAVITY UR AUTO RFX 1.015 (1.002-1.035); SQUAM EPITHELIAL CELL UR AURFX 0 /HPF (0-6); WBC, URINE AUTO RFX 5 /HPF (0-3)
[2018-05-20] MEDS: SENOKOT S TAB PO ×2 (09:00→21:00)
[2018-05-20] MEDS: NS 1,000 ML IV ×2 (09:00→10:30)
[2018-05-20 09:25] LABS: VENOUS HCO3 7.2 MEQ/L (23.0-27.0); VENOUS O2 SATURATION 72.8 % (60.0-80.0); VENOUS PARTIAL PRESSURE CO2 23.8 mmHg (38.0-50.0); VENOUS PARTIAL PRESSURE O2 36.4 mmHg (30.0-50.0); VENOUS PH 7.096 UNITS (7.330-7.430); VENOUS STANDARD HCO3 9.3 MEQ/L; VENOUS TOTAL CO2 7.9 MEQ/L (24.0-28.0)
[2018-05-20 09:26] LABS: BASO % 0.2 % (0.0-1.0); HEMATOCRIT 41.1 % (36.0-47.0); HEMOGLOBIN 13.5 g/dl (12.0-15.5); IMMATURE GRANULOCYTE % 0.4 % (0-3.0); LYMPH # 0.7 10^3/uL (1.5-4.5); LYMPH % 7.9 % (24.0-44.0); MEAN CORPUSCULAR HEMOGLOBIN 27.2 pg (27.0-33.0); MEAN CORPUSCULAR HGB CONC 32.8 g/dl (32.0-36.5); MEAN CORPUSCULAR VOLUME 82.9 fl (80.0-96.0); MONO # 0.5 10^3/uL (0.0-0.8); MONO % 5.4 % (0.0-5.0); NEUTROPHILS # 7.9 10^3/uL (1.8-7.7); NEUTROPHILS % 86.1 % (36.0-66.0); PLATELET COUNT, AUTOMATED 256 10^3/uL (150-450); RED BLOOD COUNT 4.96 10^6/uL (4.00-5.40); RED CELL DISTRIBUTION WIDTH 13.2 % (11.5-14.5); WHITE BLOOD COUNT 9.2 10^3/uL (4.0-10.0)
[2018-05-20 09:43] LABS: ESTIMATED AVERAGE GLUCOSE 212 MG/DL (60-110)
[2018-05-20 09:44] LABS: OSMOLALITY SERUM 315 MOSM/KG (275-295)
[2018-05-20 09:45] LABS: CONTROL LINE HCG INT CTR LINE PRESENT; HCG, SERUM QUALITATIVE NEGATIVE (NEGATIVE)
[2018-05-20 09:52] LABS: ALBUMIN 3.2 GM/DL (3.2-5.2); ALBUMIN/GLOBULIN RATIO 0.67 (1.00-1.93); ALKALINE PHOSPHATASE 128 U/L (45-117); ALT/SGPT 16 U/L (12-78); ANION GAP 19 MEQ/L (8-16); AST/SGOT 10 U/L (7-37); BILIRUBIN,DIRECT < 0.1 MG/DL (0.0-0.2); BILIRUBIN,TOTAL 0.4 MG/DL (0.2-1.0); BLOOD UREA NITROGEN 18 MG/DL (7-18); CALCIUM LEVEL 9.2 MG/DL (8.5-10.1); CARBON DIOXIDE LEVEL 9 MEQ/L (21-32); CHLORIDE LEVEL 114 MEQ/L (98-107); CREATININE FOR GFR 1.34 MG/DL (0.55-1.30); GLOMERULAR FILTRATION RATE 49.4 (>60); GLUCOSE, FASTING 283 MG/DL (70-100); LIPASE 47 U/L (73-393); MAGNESIUM LEVEL 2.6 MG/DL (1.8-2.4); PHOSPHORUS LEVEL 1.3 MG/DL (2.5-4.9); POTASSIUM SERUM 3.6 MEQ/L (3.5-5.1); SODIUM LEVEL 142 MEQ/L (136-145)
[2018-05-20 10:06] LABS: ACETONE/KETONE > 46.00 MG/DL (<2.81)
[2018-05-20] MEDS ORDERED: INSULIN HUMAN REGULAR 100 UNITS in NS 99 ML IV (10:20)
[2018-05-20] MEDS ORDERED: INSULIN IV RATE CHANGE DOCUMENTATION ML/HR XX (10:30)
[2018-05-20 10:32] LABS: ABG BASE EXCESS -18.4 (-2.0-2.0); ABG HCO3 7.2 MEQ/L (22.0-26.0); ABG O2 SATURATION 98.7 % (95.0-99.0); ABG PARTIAL PRESSURE O2 129.1 mmHg (75.0-100.0); ABG TOTAL CO2 7.8 MEQ/L (22.0-29.0)
[2018-05-20 10:35] LABS: ABG pH (ARTERIAL) 7.209 UNITS (7.350-7.450)
[2018-05-20 10:36] LABS: ABG PARTIAL PRESSURE CO2 18.5 mmHg (35.0-45.0)
[2018-05-20] MEDS: cefTRIAXone SOD 1 GM in D5W MINI-BAG PLUS 50 ML IV (10:53)
[2018-05-20] MEDS: INSULIN HUMAN REGULAR 100 UNITS in NS 99 ML IV ×2 (11:43→22:15)
[2018-05-20 11:49] LABS: BEDSIDE GLUCOSE 120 MG/DL (70-105)
[2018-05-20 11:52] LABS: BEDSIDE GLUCOSE 132 MG/DL (70-105)
[2018-05-20] MEDS: KCL 20MEQ IN D5/0.45NS 1000ML 1,000 ML IV ×3 (11:55→22:15)
[2018-05-20] MEDS: DEXTROSE 50% 50 ML SYRINGE IV (12:06)
[2018-05-20] MEDS ORDERED: ISOVUE-370 76% 100ML VIAL (Q9967) As Ordered (12:19)
[2018-05-20 12:34] LABS: CHLAMYDIA DNA AMPLIFICATION NEGATIVE (NEGATIVE); GC DNA AMPLIFICATION NEGATIVE (NEGATIVE)
[2018-05-20] MEDS: metroNIDAZOLE 500 MG in APPROPRIATE DILUENT 1 EA IV ×2 (12:57→21:11)
[2018-05-20 13:16] LABS: BEDSIDE GLUCOSE 211 MG/DL (70-105)
[2018-05-20 13:18] LABS: ACETONE/KETONE 37.94 MG/DL (<2.81); ANION GAP 14 MEQ/L (8-16); BLOOD UREA NITROGEN 15 MG/DL (7-18); CALCIUM LEVEL 8.4 MG/DL (8.5-10.1); CARBON DIOXIDE LEVEL 12 MEQ/L (21-32); CHLORIDE LEVEL 114 MEQ/L (98-107); CREATININE FOR GFR 1.23 MG/DL (0.55-1.30); GLOMERULAR FILTRATION RATE 54.6 (>60); GLUCOSE, FASTING 230 MG/DL (70-100); MAGNESIUM LEVEL 2.1 MG/DL (1.8-2.4); PHOSPHORUS LEVEL 0.9 MG/DL (2.5-4.9); POTASSIUM SERUM 3.8 MEQ/L (3.5-5.1); SODIUM LEVEL 140 MEQ/L (136-145)
[2018-05-20 13:19] LABS: LACTIC ACID SEPSIS PROTOCOL 1.1 MMOL/L (0.4-2.0)
[2018-05-20 13:31] LABS: LIPASE 47 U/L (73-393)
[2018-05-20] MEDS: POTASSIUM PHOSPHATE INJ 20 MMOL in D5W 250 ML IV ×2 (13:59→23:08)
[2018-05-20 14:09] LABS: BEDSIDE GLUCOSE 193 MG/DL (70-105)
[2018-05-20] MEDS: INSULIN IV RATE CHANGE DOCUMENTATION ML/HR XX ×2 (14:33→17:08)
[2018-05-20 14:34] LABS: BEDSIDE GLUCOSE 180 MG/DL (70-105)
[2018-05-20] MEDS: PANTOPRAZOLE 40MG INJ (PROTONIX) (C9113) IV (15:12)
[2018-05-20] MEDS: MORPHINE 4 MG/ML 1ML VIAL/SYRINGE (J2270) IV (15:14)
[2018-05-20] MEDS: ENOXAPARIN 30 MG/0.3 ML SYR (J1650) SC (15:15)
[2018-05-20 15:43] LABS: BEDSIDE GLUCOSE 193 MG/DL (70-105)
[2018-05-20 16:13] LABS: ACETONE/KETONE 23.74 MG/DL (<2.81); ANION GAP 12 MEQ/L (8-16); BLOOD UREA NITROGEN 14 MG/DL (7-18); CALCIUM LEVEL 8.5 MG/DL (8.5-10.1); CARBON DIOXIDE LEVEL 14 MEQ/L (21-32); CHLORIDE LEVEL 118 MEQ/L (98-107); CREATININE FOR GFR 1.12 MG/DL (0.55-1.30); GLOMERULAR FILTRATION RATE > 60.0 (>60); GLUCOSE, FASTING 205 MG/DL (70-100); PHOSPHORUS LEVEL 1.9 MG/DL (2.5-4.9); POTASSIUM SERUM 3.8 MEQ/L (3.5-5.1); SODIUM LEVEL 144 MEQ/L (136-145)
[2018-05-20 17:09] LABS: BEDSIDE GLUCOSE 265 MG/DL (70-105)
[2018-05-20 18:23] LABS: BEDSIDE GLUCOSE 246 MG/DL (70-105)
[2018-05-20] MEDS: ONDANSETRON 4MG/2ML VIAL (J2405) IV (18:35)
[2018-05-20 19:19] LABS: BEDSIDE GLUCOSE 235 MG/DL (70-105)
[2018-05-20 20:19] LABS: BEDSIDE GLUCOSE 240 MG/DL (70-105)
[2018-05-20 21:08] LABS: ACETONE/KETONE 9.18 MG/DL (<2.81); ANION GAP 9 MEQ/L (8-16); BLOOD UREA NITROGEN 11 MG/DL (7-18); CALCIUM LEVEL 8.2 MG/DL (8.5-10.1); CARBON DIOXIDE LEVEL 17 MEQ/L (21-32); CHLORIDE LEVEL 117 MEQ/L (98-107); CREATININE FOR GFR 1.01 MG/DL (0.55-1.30); GLOMERULAR FILTRATION RATE > 60.0 (>60); GLUCOSE, FASTING 267 MG/DL (70-100); MAGNESIUM LEVEL 1.9 MG/DL (1.8-2.4); PHOSPHORUS LEVEL 1.7 MG/DL (2.5-4.9); POTASSIUM SERUM 3.7 MEQ/L (3.5-5.1); SODIUM LEVEL 143 MEQ/L (136-145)
[2018-05-20] MEDS: METOCLOPRAMIDE INJ 10MG/2ML VIAL (J2765) IV (21:10)
[2018-05-20] MEDS: NORCO, ANEXSIA 5/325MG TABLET (HYDROcodone/ACETAMINOPHEN) PO (21:11)
[2018-05-20] MEDS ORDERED: GLUCOSE 4 GM CHEW TABLET PO (22:15)
[2018-05-20] MEDS ORDERED: LEVEMIR (INSULIN DETEMIR) 1 UNITS/0.01ML SC (22:15)
[2018-05-20] MEDS ORDERED: GLUCAGON FOR INJ 1 MG VIAL (J1610) SC (22:15)
[2018-05-20] MEDS ORDERED: MAALOX 30 ML SUSP *UDC PO (22:30)
[2018-05-20] MEDS: LEVEMIR (INSULIN DETEMIR) 1 UNITS/0.01ML SC (23:08)
[2018-05-20 23:15] LABS: BEDSIDE GLUCOSE 226 MG/DL (70-105)
[2018-05-21] MEDS: KCL 20MEQ IN 0.45NS 1000ML 1,000 ML IV ×4 (00:15→20:23)
[2018-05-21 01:19] LABS: BEDSIDE GLUCOSE 168 MG/DL (70-105)
[2018-05-21 02:10] LABS: ACETONE/KETONE 3.34 MG/DL (<2.81); ANION GAP 9 MEQ/L (8-16); BLOOD UREA NITROGEN 10 MG/DL (7-18); CALCIUM LEVEL 8.3 MG/DL (8.5-10.1); CARBON DIOXIDE LEVEL 19 MEQ/L (21-32); CHLORIDE LEVEL 117 MEQ/L (98-107); CREATININE FOR GFR 0.91 MG/DL (0.55-1.30); GLOMERULAR FILTRATION RATE > 60.0 (>60); GLUCOSE, FASTING 197 MG/DL (70-100); MAGNESIUM LEVEL 1.9 MG/DL (1.8-2.4); PHOSPHORUS LEVEL 2.6 MG/DL (2.5-4.9); POTASSIUM SERUM 3.7 MEQ/L (3.5-5.1); SODIUM LEVEL 145 MEQ/L (136-145)
[2018-05-21 03:33] LABS: BEDSIDE GLUCOSE 153 MG/DL (70-105)
[2018-05-21] MEDS: ONDANSETRON 4MG/2ML VIAL (J2405) IV ×3 (04:56→21:43)
[2018-05-21] MEDS: metroNIDAZOLE 500 MG in APPROPRIATE DILUENT 1 EA IV ×3 (04:56→20:23)
[2018-05-21 05:06] LABS: BEDSIDE GLUCOSE 111 MG/DL (70-105)
[2018-05-21 05:25] LABS: HEMATOCRIT 32.2 % (36.0-47.0); MEAN CORPUSCULAR HEMOGLOBIN 26.8 pg (27.0-33.0); MEAN CORPUSCULAR HGB CONC 33.5 g/dl (32.0-36.5); MEAN CORPUSCULAR VOLUME 79.9 fl (80.0-96.0); PLATELET COUNT, AUTOMATED 194 10^3/uL (150-450); RED BLOOD COUNT 4.03 10^6/uL (4.00-5.40); RED CELL DISTRIBUTION WIDTH 13.2 % (11.5-14.5); WHITE BLOOD COUNT 4.2 10^3/uL (4.0-10.0)
[2018-05-21 05:43] LABS: HEMOGLOBIN 10.8 g/dl (12.0-15.5)
[2018-05-21 05:49] LABS: ACETONE/KETONE 2.42 MG/DL (<2.81); ALBUMIN 2.5 GM/DL (3.2-5.2); ALBUMIN/GLOBULIN RATIO 0.66 (1.00-1.93); ALKALINE PHOSPHATASE 97 U/L (45-117); ALT/SGPT 11 U/L (12-78); ANION GAP 8 MEQ/L (8-16); AST/SGOT 6 U/L (7-37); BILIRUBIN,TOTAL 0.2 MG/DL (0.2-1.0); BLOOD UREA NITROGEN 9 MG/DL (7-18); CALCIUM LEVEL 8.2 MG/DL (8.5-10.1); CARBON DIOXIDE LEVEL 20 MEQ/L (21-32); CHLORIDE LEVEL 118 MEQ/L (98-107); CREATININE FOR GFR 0.83 MG/DL (0.55-1.30); GLOMERULAR FILTRATION RATE > 60.0 (>60); GLUCOSE, FASTING 96 MG/DL (70-100); MAGNESIUM LEVEL 1.8 MG/DL (1.8-2.4); PHOSPHORUS LEVEL 1.7 MG/DL (2.5-4.9); POTASSIUM SERUM 3.3 MEQ/L (3.5-5.1); SODIUM LEVEL 146 MEQ/L (136-145); TOTAL PROTEIN 6.3 GM/DL (6.4-8.2)
[2018-05-21 06:54] LABS: BEDSIDE GLUCOSE 60 MG/DL (70-105)
[2018-05-21] MEDS: HumaLOG INSULIN (NovoLOG) PER UNIT SC ×5 (07:30→20:15)
[2018-05-21] MEDS: MAG SULF 1GM/100ML (MAG RUN) 1 GM in APPROPRIATE DILUENT 1 EA IV (07:49)
[2018-05-21] MEDS: METOCLOPRAMIDE INJ 10MG/2ML VIAL (J2765) IV (07:53)
[2018-05-21] MEDS: NORCO, ANEXSIA 5/325MG TABLET (HYDROcodone/ACETAMINOPHEN) PO (07:56)
[2018-05-21 08:07] LABS: BEDSIDE GLUCOSE 56 MG/DL (70-105)
[2018-05-21] MEDS: DEXTROSE 50% 50 ML SYRINGE IV (08:09)
[2018-05-21 08:43] LABS: BEDSIDE GLUCOSE 179 MG/DL (70-105)
[2018-05-21] MEDS: SENOKOT S TAB PO ×2 (09:00→20:15)
[2018-05-21] MEDS: POTASSIUM PHOSPHATE INJ 20 MMOL in D5W 250 ML IV ×2 (09:27→12:47)
[2018-05-21] MEDS: ENOXAPARIN 30 MG/0.3 ML SYR (J1650) SC (09:27)
[2018-05-21] MEDS: cefTRIAXone SOD 2 GM in D5W MINI-BAG PLUS 50 ML IV (10:18)
[2018-05-21 10:32] LABS: BEDSIDE GLUCOSE 220 MG/DL (70-105)
[2018-05-21 11:59] LABS: BEDSIDE GLUCOSE 196 MG/DL (70-105)
[2018-05-21] MEDS: SUCRALFATE SUSP 1GM/10ML UD PO ×2 (12:48→18:27)
[2018-05-21] MEDS: PANTOPRAZOLE 40MG INJ (PROTONIX) (C9113) IV (16:34)
[2018-05-21 17:02] LABS: ANION GAP 8 MEQ/L (8-16); BLOOD UREA NITROGEN 6 MG/DL (7-18); CALCIUM LEVEL 7.9 MG/DL (8.5-10.1); CARBON DIOXIDE LEVEL 22 MEQ/L (21-32); CHLORIDE LEVEL 115 MEQ/L (98-107); CREATININE FOR GFR 0.76 MG/DL (0.55-1.30); GLOMERULAR FILTRATION RATE > 60.0 (>60); GLUCOSE, FASTING 176 MG/DL (70-100); PHOSPHORUS LEVEL 2.6 MG/DL (2.5-4.9); POTASSIUM SERUM 3.4 MEQ/L (3.5-5.1); SODIUM LEVEL 145 MEQ/L (136-145)
[2018-05-21 17:29] LABS: BEDSIDE GLUCOSE 200 MG/DL (70-105)
[2018-05-21] MEDS: POTASSIUM CHLORIDE 10 MEQ SR TABLET PO (18:29)
[2018-05-21 20:06] LABS: BEDSIDE GLUCOSE 222 MG/DL (70-105)
[2018-05-21] MEDS: LEVEMIR (INSULIN DETEMIR) 1 UNITS/0.01ML SC (20:24)
[2018-05-22] MEDS: metroNIDAZOLE 500 MG in APPROPRIATE DILUENT 1 EA IV ×3 (04:31→20:45)
[2018-05-22 04:58] LABS: HEMATOCRIT 32.9 % (36.0-47.0); HEMOGLOBIN 11.1 g/dl (12.0-15.5); MEAN CORPUSCULAR HEMOGLOBIN 27.2 pg (27.0-33.0); MEAN CORPUSCULAR HGB CONC 33.7 g/dl (32.0-36.5); MEAN CORPUSCULAR VOLUME 80.6 fl (80.0-96.0); PLATELET COUNT, AUTOMATED 174 10^3/uL (150-450); RED BLOOD COUNT 4.08 10^6/uL (4.00-5.40); RED CELL DISTRIBUTION WIDTH 13.1 % (11.5-14.5)
[2018-05-22 05:14] LABS: ALBUMIN 2.3 GM/DL (3.2-5.2); ALBUMIN/GLOBULIN RATIO 0.66 (1.00-1.93); ALKALINE PHOSPHATASE 88 U/L (45-117); ALT/SGPT 11 U/L (12-78); ANION GAP 6 MEQ/L (8-16); AST/SGOT 9 U/L (7-37); BILIRUBIN,TOTAL 0.2 MG/DL (0.2-1.0); BLOOD UREA NITROGEN 6 MG/DL (7-18); CALCIUM LEVEL 8.1 MG/DL (8.5-10.1); CARBON DIOXIDE LEVEL 25 MEQ/L (21-32); CHLORIDE LEVEL 116 MEQ/L (98-107); CREATININE FOR GFR 0.77 MG/DL (0.55-1.30); GLOMERULAR FILTRATION RATE > 60.0 (>60); GLUCOSE, FASTING 229 MG/DL (70-100); MAGNESIUM LEVEL 2.1 MG/DL (1.8-2.4); PHOSPHORUS LEVEL 1.5 MG/DL (2.5-4.9); POTASSIUM SERUM 3.8 MEQ/L (3.5-5.1); SODIUM LEVEL 147 MEQ/L (136-145); TOTAL PROTEIN 5.8 GM/DL (6.4-8.2)
[2018-05-22] MEDS: SUCRALFATE SUSP 1GM/10ML UD PO ×3 (07:54→17:50)
[2018-05-22] MEDS: HumaLOG INSULIN (NovoLOG) PER UNIT SC ×4 (07:55→20:45)
[2018-05-22] MEDS: POTASSIUM PHOSPHATE INJ 20 MMOL in D5W 250 ML IV (09:02)
[2018-05-22] MEDS: ONDANSETRON 4MG/2ML VIAL (J2405) IV ×3 (09:02→22:23)
[2018-05-22] MEDS: ENOXAPARIN 30 MG/0.3 ML SYR (J1650) SC (09:03)
[2018-05-22] MEDS: SENOKOT S TAB PO ×2 (09:03→20:46)
[2018-05-22] MEDS: cefTRIAXone SOD 2 GM in D5W MINI-BAG PLUS 50 ML IV (10:51)
[2018-05-22 11:15] LABS: HIV 1&2 SCREEN CENTAUR NEGATIVE (NEGATIVE)
[2018-05-22 12:14] LABS: BEDSIDE GLUCOSE 234 MG/DL (70-105)
[2018-05-22] MEDS: KCL 20MEQ IN 0.45NS 1000ML 1,000 ML IV ×2 (13:00→22:58)
[2018-05-22] MEDS ORDERED: LIDOCAINE 2% MDV 20 ML VIAL As Ordered (14:42)
[2018-05-22] MEDS ORDERED: fentaNYL 100 MCG/2 ML INJECTION (J3010) As Ordered (14:42)
[2018-05-22] MEDS ORDERED: PROPOFOL 200 MG/20 ML VIAL As Ordered (14:42)
[2018-05-22] MEDS: PANTOPRAZOLE 40MG INJ (PROTONIX) (C9113) IV (15:37)
[2018-05-22 17:36] LABS: BEDSIDE GLUCOSE 286 MG/DL (70-105)
[2018-05-22] MEDS: METOCLOPRAMIDE INJ 10MG/2ML VIAL (J2765) IV (17:50)
[2018-05-22] MEDS ORDERED: SODIUM CHLORIDE 0.9% INJ 10 ML SYR IV (19:00)
[2018-05-22 19:46] LABS: ANION GAP 7 MEQ/L (8-16); BLOOD UREA NITROGEN 5 MG/DL (7-18); CALCIUM LEVEL 7.9 MG/DL (8.5-10.1); CARBON DIOXIDE LEVEL 26 MEQ/L (21-32); CHLORIDE LEVEL 110 MEQ/L (98-107); CREATININE FOR GFR 0.59 MG/DL (0.55-1.30); GLOMERULAR FILTRATION RATE > 60.0 (>60); GLUCOSE, FASTING 349 MG/DL (70-100); MAGNESIUM LEVEL 2.1 MG/DL (1.8-2.4); POTASSIUM SERUM 3.5 MEQ/L (3.5-5.1); SODIUM LEVEL 143 MEQ/L (136-145)
[2018-05-22 20:39] LABS: BEDSIDE GLUCOSE 268 MG/DL (70-105)
[2018-05-22] MEDS: LEVEMIR (INSULIN DETEMIR) 1 UNITS/0.01ML SC (20:46)
[2018-05-22] MEDS: SODIUM CHLORIDE 0.9% INJ 10 ML SYR IV (21:00)
[2018-05-23] MEDS: metroNIDAZOLE 500 MG in APPROPRIATE DILUENT 1 EA IV ×3 (04:04→21:36)
[2018-05-23] MEDS: SODIUM CHLORIDE 0.9% INJ 10 ML SYR IV ×3 (05:47→21:37)
[2018-05-23 06:03] LABS: HEMATOCRIT 32.7 % (36.0-47.0); HEMOGLOBIN 10.9 g/dl (12.0-15.5); MEAN CORPUSCULAR HEMOGLOBIN 26.8 pg (27.0-33.0); MEAN CORPUSCULAR HGB CONC 33.3 g/dl (32.0-36.5); MEAN CORPUSCULAR VOLUME 80.5 fl (80.0-96.0); PLATELET COUNT, AUTOMATED 181 10^3/uL (150-450); RED BLOOD COUNT 4.06 10^6/uL (4.00-5.40); RED CELL DISTRIBUTION WIDTH 12.7 % (11.5-14.5); WHITE BLOOD COUNT 3.2 10^3/uL (4.0-10.0)
[2018-05-23 06:30] LABS: ALBUMIN 2.5 GM/DL (3.2-5.2); ALBUMIN/GLOBULIN RATIO 0.74 (1.00-1.93); ALKALINE PHOSPHATASE 90 U/L (45-117); ALT/SGPT 12 U/L (12-78); ANION GAP 7 MEQ/L (8-16); AST/SGOT 12 U/L (7-37); BILIRUBIN,TOTAL 0.2 MG/DL (0.2-1.0); BLOOD UREA NITROGEN 4 MG/DL (7-18); CALCIUM LEVEL 8.3 MG/DL (8.5-10.1); CARBON DIOXIDE LEVEL 29 MEQ/L (21-32); CHLORIDE LEVEL 112 MEQ/L (98-107); CREATININE FOR GFR 0.35 MG/DL (0.55-1.30); GLOMERULAR FILTRATION RATE > 60.0 (>60); MAGNESIUM LEVEL 2.1 MG/DL (1.8-2.4); PHOSPHORUS LEVEL 2.1 MG/DL (2.5-4.9); SODIUM LEVEL 148 MEQ/L (136-145); TOTAL PROTEIN 5.9 GM/DL (6.4-8.2)
[2018-05-23 06:32] LABS: GLUCOSE, FASTING 32 MG/DL (70-100)
[2018-05-23] MEDS: DEXTROSE 50% 50 ML SYRINGE IV (06:38)
[2018-05-23 07:03] LABS: BEDSIDE GLUCOSE 89 MG/DL (70-105)
[2018-05-23] MEDS: KCL 20MEQ IN 0.45NS 1000ML 1,000 ML IV ×3 (07:30→21:35)
[2018-05-23] MEDS: HumaLOG INSULIN (NovoLOG) PER UNIT SC ×4 (07:30→21:36)
[2018-05-23] MEDS: ONDANSETRON 4MG/2ML VIAL (J2405) IV (08:16)
[2018-05-23] MEDS: METOCLOPRAMIDE INJ 10MG/2ML VIAL (J2765) IV ×3 (09:01→17:25)
[2018-05-23] MEDS: POTASSIUM CHLORIDE 10 MEQ SR TABLET PO (09:02)
[2018-05-23] MEDS: SUCRALFATE SUSP 1GM/10ML UD PO ×3 (09:02→17:25)
[2018-05-23] MEDS: SENOKOT S TAB PO ×2 (09:02→21:36)
[2018-05-23] MEDS: ENOXAPARIN 30 MG/0.3 ML SYR (J1650) SC (09:03)
[2018-05-23 11:39] LABS: BEDSIDE GLUCOSE 123 MG/DL (70-105)
[2018-05-23 16:53] LABS: BEDSIDE GLUCOSE 300 MG/DL (70-105)
[2018-05-23] MEDS: PANTOPRAZOLE 40MG INJ (PROTONIX) (C9113) IV (17:25)
[2018-05-23 17:27] LABS: ANION GAP 7 MEQ/L (8-16); BLOOD UREA NITROGEN 4 MG/DL (7-18); CALCIUM LEVEL 8.2 MG/DL (8.5-10.1); CARBON DIOXIDE LEVEL 28 MEQ/L (21-32); CHLORIDE LEVEL 110 MEQ/L (98-107); CREATININE FOR GFR 0.63 MG/DL (0.55-1.30); GLUCOSE, FASTING 313 MG/DL (70-100); PHOSPHORUS LEVEL 1.9 MG/DL (2.5-4.9); POTASSIUM SERUM 4.3 MEQ/L (3.5-5.1); SODIUM LEVEL 145 MEQ/L (136-145)
[2018-05-23 17:29] LABS: GLOMERULAR FILTRATION RATE > 60.0 (>60)
[2018-05-23 20:46] LABS: BEDSIDE GLUCOSE 285 MG/DL (70-105)
[2018-05-23] MEDS: LEVEMIR (INSULIN DETEMIR) 1 UNITS/0.01ML SC (21:37)
[2018-05-24] MEDS: metroNIDAZOLE 500 MG in APPROPRIATE DILUENT 1 EA IV (05:36)
[2018-05-24] MEDS: KCL 20MEQ IN 0.45NS 1000ML 1,000 ML IV (05:36)
[2018-05-24] MEDS: SODIUM CHLORIDE 0.9% INJ 10 ML SYR IV (05:37)
[2018-05-24 05:56] LABS: HEMATOCRIT 31.7 % (36.0-47.0); HEMOGLOBIN 10.5 g/dl (12.0-15.5); MEAN CORPUSCULAR HGB CONC 33.1 g/dl (32.0-36.5); MEAN CORPUSCULAR VOLUME 81.5 fl (80.0-96.0); PLATELET COUNT, AUTOMATED 169 10^3/uL (150-450); RED BLOOD COUNT 3.89 10^6/uL (4.00-5.40); RED CELL DISTRIBUTION WIDTH 12.5 % (11.5-14.5); WHITE BLOOD COUNT 3.1 10^3/uL (4.0-10.0)
[2018-05-24 06:19] LABS: PHOSPHORUS LEVEL 2.6 MG/DL (2.5-4.9)
[2018-05-24 06:23] LABS: ALBUMIN 2.3 GM/DL (3.2-5.2); ALBUMIN/GLOBULIN RATIO 0.72 (1.00-1.93); ALKALINE PHOSPHATASE 93 U/L (45-117); ALT/SGPT 14 U/L (12-78); ANION GAP 4 MEQ/L (8-16); AST/SGOT 19 U/L (7-37); BILIRUBIN,TOTAL 0.2 MG/DL (0.2-1.0); BLOOD UREA NITROGEN 5 MG/DL (7-18); CALCIUM LEVEL 8.2 MG/DL (8.5-10.1); CARBON DIOXIDE LEVEL 32 MEQ/L (21-32); CHLORIDE LEVEL 108 MEQ/L (98-107); CREATININE FOR GFR 0.62 MG/DL (0.55-1.30); GLOMERULAR FILTRATION RATE > 60.0 (>60); GLUCOSE, FASTING 235 MG/DL (70-100); POTASSIUM SERUM 3.6 MEQ/L (3.5-5.1); SODIUM LEVEL 144 MEQ/L (136-145); TOTAL PROTEIN 5.5 GM/DL (6.4-8.2)
[2018-05-24] MEDS: SENOKOT S TAB PO (08:03)
[2018-05-24] MEDS: SUCRALFATE SUSP 1GM/10ML UD PO (08:03)
[2018-05-24] MEDS: METOCLOPRAMIDE INJ 10MG/2ML VIAL (J2765) IV (08:04)
[2018-05-24] MEDS: HumaLOG INSULIN (NovoLOG) PER UNIT SC (08:05)
[2018-05-24] MEDS: ENOXAPARIN 30 MG/0.3 ML SYR (J1650) SC (08:05)
== END 2018-05-24 12:07 | disposition home or self-care (01) | DRG 420 ==
LOC: M PCU 05-21 21:36 → M ED 07:43 → M ED INP 12:11 → M ICU 14:25
PROVIDERS: Hospitalist
PROC: 02HV33Z Insertion of Infusion Device into Superior Vena Cava, Percutaneous Approach (ICD-10-PCS; principal; 2018-05-22 14:38)
PROC: 0DB68ZX Excision of Stomach, Via Natural or Artificial Opening Endoscopic, Diagnostic (ICD-10-PCS; 2018-05-22 14:38)
PROC: 0DB58ZX Excision of Esophagus, Via Natural or Artificial Opening Endoscopic, Diagnostic (ICD-10-PCS; 2018-05-22 14:38)
DX: E10.10 Type 1 diabetes mellitus with ketoacidosis without coma (principal); A59.01 Trichomonal vulvovaginitis; K20.9 Esophagitis, unspecified; N39.0 Urinary tract infection, site not specified; K29.70 Gastritis, unspecified, without bleeding; N17.9 Acute kidney failure, unspecified; E78.5 Hyperlipidemia, unspecified; Z91.14 Patient's other noncompliance with medication regimen; Z79.899 Other long term (current) drug therapy; Z79.4 Long term (current) use of insulin; E86.0 Dehydration

== ENCOUNTER → 2018-05-26 | Outpatient (REF) | payer SELFPAY, OTHER ==
[2018-06-01 14:41] LABS: HPV HYBRID CAPTURE II Negative (Negative)
== END ==
LOC: M SFHCWAGY 13:45
DX: Z12.4 Encounter for screening for malignant neoplasm of cervix (principal)

== ENCOUNTER 2018-08-10 02:37 | Emergency (ER) | payer BC, SELFPAY ==
[2018-08-10 03:06] LABS: BEDSIDE GLUCOSE 149 MG/DL (70-105)
== END 2018-08-10 03:37 | disposition home or self-care (01) ==
LOC: M ED 02:37
DX: E10.649 Type 1 diabetes mellitus with hypoglycemia without coma (principal); Z79.4 Long term (current) use of insulin
CPT/HCPCS: 99283

== ENCOUNTER → 2018-09-26 | Outpatient (REF) | payer BC ==
[2018-09-26 19:44] LABS: CHLAMYDIA DNA AMPLIFICATION NEGATIVE (NEGATIVE); GC DNA AMPLIFICATION NEGATIVE (NEGATIVE)
== END ==
LOC: M SFHCWAGY 15:44
DX: N92.6 Irregular menstruation, unspecified (principal); Z11.3 Encounter for screening for infections with a predominantly sexual mode of transmission; A59.01 Trichomonal vulvovaginitis

== ENCOUNTER 2018-12-04 19:14 | Emergency (ER) | payer BC, OTHER ==
[~2018-12-04] VITALS: Ht 162.6 cm; Wt 70.6 kg
[~2018-12-04 19:14] MED LIST changes: +ACET1TAB55 PO; +ACET500T15 PO; -ACET50TAOT PO; +ATRO1OPD OD; +DOXY-350 PO; +DURE0.055 OD; -IBUP200C10 PO; +IBUP200C25 PO; +KEFL500C17 PO; +METR-201 PO; +MYLASSUD PO; +NAPR-885 PO; -NAPR500T3 PO; +PROC25SU24 PR; +PROTPAK PO; +REST0.05 OU; +SUCR10SS PO; +TRES1INJ2 SC; -TRES1INJ2 SUBQ; +TYLE500T78 PO; -ZOFR20TA PO; +ZOFR4TAB14 PO; +ZOFR4TAB16 PO
[2018-12-04] MEDS ORDERED: ONDANSETRON 4 MG ORAL DISINTEGRATING TAB (Q0162 PER 1MG) PO ONE ×2 (19:45)
[2018-12-04 20:15] VITALS: BP 154/94
== END 2018-12-04 20:41 | disposition home or self-care (01) ==
LOC: M ED 19:14 → EDBD 19:14 → M ED 20:41
DX: E11.65 Type 2 diabetes mellitus with hyperglycemia (principal); F41.9 Anxiety disorder, unspecified; Z79.4 Long term (current) use of insulin
CPT/HCPCS: 99284; Q0162

== ENCOUNTER 2019-04-09 21:02 | Emergency (ER) | payer OTHER ==
[~2019-04-09] VITALS: Ht 162.6 cm; Wt 69.5 kg
[~2019-04-09 21:02] MED LIST changes: -/INSU7030 SC; -/MOXI40TA PO; -/PRAV20TA PO; +AVEL1TAB2 PO; +LINE1TAB PO; -LINE60TAB PO; -METR-201 PO; +METR-265 PO; +NOVO1INJ4 SC
[2019-04-09] MEDS ORDERED: PRED20TA (21:10)
[2019-04-09] MEDS ORDERED: AMOX875T (21:10)
[2019-04-09] MEDS ORDERED: AMOX875T2 (21:10)
[2019-04-09] MEDS ORDERED: VITA500045 (21:10)
[2019-04-09] MEDS ORDERED: TRES100I SC (21:10)
[2019-04-09] MEDS ORDERED: ALBU8.5H (21:10)
[2019-04-09 22:06] VITALS: BP 140/89
[2019-04-09] MEDS ORDERED: TESS100C PO (22:36)
[2019-04-09] MEDS ORDERED: FLON1SPR NARES (22:36)
== END 2019-04-09 22:43 | disposition home or self-care (01) ==
LOC: M ED 21:02
DX: J40 Bronchitis, not specified as acute or chronic (principal); K21.9 Gastro-esophageal reflux disease without esophagitis; E11.9 Type 2 diabetes mellitus without complications; Z79.4 Long term (current) use of insulin; Z79.899 Other long term (current) drug therapy

== ENCOUNTER → 2019-05-29 | Outpatient (REF) | payer OTHER ==
[~2019-05-29] MED LIST changes: +ALBU8.5H; +AMOX875T; +AMOX875T2; +FLON1SPR NARES; -OMEP20CA3 PO; +OMEP20CA4 PO; +PRED20TA; +TESS100C PO; +TRES100I SC; +VITA500045
[2019-05-29 20:11] LABS: CHLAMYDIA DNA AMPLIFICATION NEGATIVE (NEGATIVE); GC DNA AMPLIFICATION NEGATIVE (NEGATIVE)
[2019-05-31 14:07] LABS: HPV HYBRID CAPTURE II Negative (Negative)
== END ==
LOC: M SFHCWAGY 14:53
PROVIDERS: ATTEND Nurse Practitioner Women's Health
DX: Z12.4 Encounter for screening for malignant neoplasm of cervix (principal)

== ENCOUNTER → 2019-05-30 | Outpatient (REF) | payer OTHER ==
[2019-05-30 13:01] LABS: APPEARANCE, URINE CLEAR (CLEAR); BACTERIA, URINE AUTO 3+ (NEGATIVE); BILIRUBIN, URINE AUTO NEGATIVE (NEGATIVE); BLOOD, URINE BLOOD 1+ (NEGATIVE); COLOR, URINE YELLOW (YELLOW); GLUCOSE, URINE (UA) AUTO 3+ mg/dL (NEGATIVE); KETONE, URINE AUTO 2+ mg/dL (NEGATIVE); LEUKOCYTE ESTERASE, URINE AUTO TRACE (NEGATIVE); NITRITE, URINE AUTO NEGATIVE (NEGATIVE); PROTEIN, URINE AUTO 2+ mg/dL (NEGATIVE); RBC, URINE AUTO 4 /HPF (0-3); SPECIFIC GRAVITY URINE AUTO 1.027 (1.002-1.035); SQUAMOUS EPITHELIAL CELL UR AU 0 /HPF (0-6); UROBILINOGEN, URINE AUTO 0.2 mg/dL (0.0-2.0); WBC, URINE AUTO 25 /HPF (0-3)
[2019-05-30 14:42] LABS: BASO % 0.9 % (0.0-1.0); EOS # 0.1 10^3/uL (0.0-0.50); EOS % 1.5 % (0.0-3.0); HEMATOCRIT 38.2 % (36.0-47.0); HEMOGLOBIN 12.5 g/dl (12.0-15.5); LYMPH # 1.5 10^3/uL (1.5-4.5); LYMPH % 32.8 % (24.0-44.0); MEAN CORPUSCULAR HEMOGLOBIN 27.1 pg (27.0-33.0); MEAN CORPUSCULAR HGB CONC 32.7 g/dl (32.0-36.5); MEAN CORPUSCULAR VOLUME 82.9 fl (80.0-96.0); MONO # 0.3 10^3/uL (0.0-0.8); MONO % 5.7 % (0.0-5.0); NEUTROPHILS # 2.8 10^3/uL (1.8-7.7); NEUTROPHILS % 58.9 % (36.0-66.0); PLATELET COUNT, AUTOMATED 217 10^3/uL (150-450); RED BLOOD COUNT 4.61 10^6/uL (4.00-5.40); WHITE BLOOD COUNT 4.7 10^3/uL (4.0-10.0)
[2019-05-30 14:57] LABS: BLOOD UREA NITROGEN 22 MG/DL (7-18); CREATININE FOR GFR 0.96 MG/DL (0.55-1.30); GLUCOSE, FASTING 337 MG/DL (70-100)
[2019-05-30 14:58] LABS: ALBUMIN 3.3 GM/DL (3.2-5.2); ALT/SGPT 20 U/L (12-78); BILIRUBIN,TOTAL 0.3 MG/DL (0.2-1.0); CALCIUM LEVEL 9.2 MG/DL (8.5-10.1); CARBON DIOXIDE LEVEL 22 MEQ/L (21-32); CHLORIDE LEVEL 103 MEQ/L (98-107); CHOLESTEROL LEVEL 201 MG/DL (<200); CHOLESTEROL RISK RATIO 4.674 (<5); FREE T4 0.93 NG/DL (0.76-1.46); GLOMERULAR FILTRATION RATE > 60.0 (>60); HDL CHOLESTEROL 43 MG/DL (>40); LDL CHOLESTEROL 105 MG/DL (<100); NON-HDL-C 158 MG/DL; POTASSIUM SERUM 4.1 MEQ/L (3.5-5.1); SODIUM LEVEL 136 MEQ/L (136-145); THYROID STIMULATING HORMONE 0.743 uIU/ML (0.358-3.740); TOTAL 25(OH) VITAMIN D 26.8 NG/ML (30.0-100.0); TRIGLYCERIDES LEVEL 265 MG/DL (<150)
== END ==
LOC: M LAB REF 12:43
PROVIDERS: ATTEND Nurse Practitioner Family
DX: Z13.9 Encounter for screening, unspecified (principal)

== ENCOUNTER 2019-06-21 16:15 | Inpatient (IN) | payer OTHER ==
[~2019-06-21] VITALS: Ht 162.6 cm; Wt 68.8 kg
[2019-06-21] MEDS ORDERED: NS 1,000 ML IV ONE (19:00)
[2019-06-21 22:06] LABS: BASO % 0.5 % (0.0-1.0); EOS % 0.3 % (0.0-3.0); HEMATOCRIT 45.1 % (36.0-47.0); HEMOGLOBIN 14.7 g/dl (12.0-15.5); LYMPH # 1.3 10^3/uL (1.5-4.5); LYMPH % 17.1 % (24.0-44.0); MEAN CORPUSCULAR HEMOGLOBIN 27.7 pg (27.0-33.0); MEAN CORPUSCULAR HGB CONC 32.6 g/dl (32.0-36.5); MEAN CORPUSCULAR VOLUME 85.1 fl (80.0-96.0); MONO # 0.3 10^3/uL (0.0-0.8); MONO % 3.5 % (0.0-5.0); NEUTROPHILS # 6.1 10^3/uL (1.8-7.7); NEUTROPHILS % 78.2 % (36.0-66.0); PLATELET COUNT, AUTOMATED 231 10^3/uL (150-450); WHITE BLOOD COUNT 7.8 10^3/uL (4.0-10.0)
[2019-06-21 22:25] LABS: OSMOLALITY SERUM 316 MOSM/KG (275-295)
[2019-06-21 22:39] LABS: ACETONE/KETONE > 46.00 MG/DL (<2.81); ALBUMIN 3.8 GM/DL (3.2-5.2); ALT/SGPT 26 U/L (12-78); BILIRUBIN,DIRECT < 0.1 MG/DL (0.0-0.2); BILIRUBIN,TOTAL 0.5 MG/DL (0.2-1.0); LIPASE 105 U/L (73-393); MAGNESIUM LEVEL 2.3 MG/DL (1.8-2.4); PHOSPHORUS LEVEL 2.9 MG/DL (2.5-4.9); TOTAL PROTEIN 8.5 GM/DL (6.4-8.2)
[2019-06-21] MEDS ORDERED: HumuLIN R (REGULAR) INSULIN (NovoLIN R) **100U/ML** PER UNIT IV ONE (23:00)
[2019-06-21 23:18] LABS: ABG BASE EXCESS -18.7 (-2.0-2.0); ABG HCO3 7.6 MEQ/L (22.0-26.0); ABG O2 SATURATION 98.6 % (95.0-99.0); ABG PARTIAL PRESSURE CO2 20.8 mmHg (35.0-45.0); ABG PARTIAL PRESSURE O2 136.8 mmHg (75.0-100.0); ABG STANDARD HCO3 10.9 MEQ/L (22.0-26.0); ABG TOTAL CO2 8.3 MEQ/L (22.0-29.0)
[2019-06-21 23:19] LABS: ABG pH (ARTERIAL) 7.182 UNITS (7.350-7.450)
[2019-06-21] MEDS ORDERED: INSULIN HUMAN REGULAR 100 UNITS in NS 99 ML IV SCH (23:26)
[2019-06-21] MEDS ORDERED: INSULIN IV RATE CHANGE DOCUMENTATION ML/HR XX SCH (23:30)
[2019-06-21] MEDS ORDERED: VITA500045 PO (23:51)
[2019-06-22] MEDS ORDERED: NS 1,000 ML IV SCH (00:44)
[2019-06-22] MEDS ORDERED: KCL 10MEQ/100ML SWI (KRUN) 10 MEQ in APPROPRIATE DILUENT 1 EA IV ONE (00:45)
[2019-06-22] MEDS ORDERED: HumuLIN R (REGULAR) INSULIN (NovoLIN R) **100U/ML** PER UNIT IV SCH (00:45)
[2019-06-22 02:12] VITALS: BP 164/91
[2019-06-22] MEDS: INSULIN IV RATE CHANGE DOCUMENTATION ML/HR XX SCH ×7 (02:42→14:34)
[2019-06-22] MEDS ORDERED: GLUCOSE 4 GM CHEW TABLET PO PRN ×2 (02:45→14:45)
[2019-06-22] MEDS ORDERED: GLUCAGON FOR INJ 1 MG VIAL (J1610) SC PRN ×2 (02:45→14:45)
[2019-06-22] MEDS ORDERED: DEXTROSE 50% 50 ML SYRINGE IV PRN ×2 (02:45→14:45)
[2019-06-22 02:56] LABS: BASO % 0.5 % (0.0-1.0); EOS % 0.3 % (0.0-3.0); HEMATOCRIT 38.7 % (36.0-47.0); HEMOGLOBIN 12.9 g/dl (12.0-15.5); LYMPH # 1.2 10^3/uL (1.5-4.5); LYMPH % 15.3 % (24.0-44.0); MEAN CORPUSCULAR HEMOGLOBIN 27.5 pg (27.0-33.0); MEAN CORPUSCULAR HGB CONC 33.3 g/dl (32.0-36.5); MEAN CORPUSCULAR VOLUME 82.5 fl (80.0-96.0); MONO # 0.4 10^3/uL (0.0-0.8); MONO % 5.6 % (0.0-5.0); NEUTROPHILS # 6.1 10^3/uL (1.8-7.7); NEUTROPHILS % 77.8 % (36.0-66.0); PLATELET COUNT, AUTOMATED 247 10^3/uL (150-450); RED BLOOD COUNT 4.69 10^6/uL (4.00-5.40); WHITE BLOOD COUNT 7.8 10^3/uL (4.0-10.0)
[2019-06-22 03:00] VITALS: BP 147/86
[2019-06-22] MEDS: ONDANSETRON 4MG/2ML VIAL (J2405) IV PRN ×2 (03:14→11:07)
--- NOTE | 2019-06-22 03:15 | HPEPDOC ---
[facility] Medical History & Physical Date of Admission Jun 22, 2019 Date of Service: Jun 22, 2019 Attending Physician: AGNES SCOTT MD History and Physical TIME OF SERVICE 320AM CHIEF COMPLAINT: vomiting HISTORY OF PRESENT ILLNESS: Ms Paez is a 33-year-old female who presented with complaints of vomiting for several days. She went to urgent care clinic where a UA was done that showed ketones as as a result she was sent to the ED for evaluation. The patient denies having abdominal pain, denies having dysuria, denies having change in the smell or the color of the urine, and denies having fevers or chills. She denies changes to her medication regimen and recently. She was last admitted for management of DKA in May of 2018. REVIEW OF SYSTEMS: Review of systems negative except as listed in HPI PAST MEDICAL/SURGICAL HISTORY: 1. Type 1 diabetes. 2. Dyslipidemia 3. Esophagitis/gastritis. 4. Status post LEEP SOCIAL HISTORY: No smoking. No alcohol No recreational drug use FAMILY HISTORY: Coronary artery disease. Dyslipidemia. Hypertension Diabetes ALLERGIES: Please see below. HOME MEDICATIONS: Please see below. PHYSICAL EXAMINATION: VITAL SIGNS: Temperature 98.0, pulse 110, respiratory rate 18, blood pressure 135/97, pulse oximetry 100% on room air GENERAL APPEARANCE: On nourished and well-developed, not in apparent distress HEENT: Normocephalic, atraumatic, mucous membranes slightly dry CARDIOVASCULAR: Heart has a regular rhythm and the rate is tachycardic. There are no murmurs, rubs or gallops. Extremity is warm and well-perfused LUNGS: There is normal air entry bilaterally, she is not using accessory muscles, the lungs are clear to auscultation bilaterally on room air ABDOMEN: The abdomen is soft and nontender on palpation. Bowel sounds are hypoactive MUSCULOSKELETAL: Range of motion is intact in all 4 extremities EXTREMITIES: There is no lower extremity edema NEUROLOGICAL: Cranial nerves II-12 are grossly intact. Speech is not dysarthric PSYCHIATRIC: The patient is alert and oriented to person, place and time and able to understand and follow commands LABORATORY DATA: CBC was unremarkable. The chemistry is remarkable for a sodium of 134, CO2 of 12, and glucose of 429. Urine was positive for 2+ ketones, 2+ protein, nitrites, 2+ leukocyte esterase, and 68 WBCs PH was 7.128, PCO2 was 20 IMAGING: None MICROBIOLOGY: Please see below. ASSESSMENT: is a 33 F w a PMH of DM1 and dyslipidemia who will be admitted to ICU for management of DKA. PLAN: 1. DKA Triggered by asymptomatic UTI ? Glucose, pH, serum Bicarb and U ketones pointed towards a diagnosis of DKA UA findings were consistent with a UTI Lactic acid was within normal limits DKA MPM Score to predict risk of in hospital mortality at presentation = 0 points = 0.86% in hospital mortality Plan: admit to ICU /NPO / IVF/ Insulin drip per protocol will c/w drip until we are able to get Tresiba for bridging / f/u BMP Q4h, venous PH Q4H, osmol Q4H, Mag Q4H, phosp Q4H / f/u A1C / replete K as needed / DM education / day time team can consider Endo Consult 2. Asymptomatic UTI Plan: levofloxacin (abx day #1), follow-up blood cultures and urine cultures. 3. Dyslipidemia. Plan continue home meds DVT prophylaxis with Lovenox. Disposition pending clinical course CC time 30 min Vital Signs Vital Signs Date Time Temp Pulse Resp B/P (MAP) Pulse Ox O2 Delivery O2 Flow Rate FiO2 06/21/19 19:34 98.0 110 18 135/97 (110) 100 Room Air Laboratory Data Labs 24H Laboratory Tests 2 06/21/19 17:19: Bedside Glucose (Misc Panel) 368H 06/21/19 17:29: Urine Color YELLOW, Urine Appearance HAZY, Urine pH 6.0, Urine Specific [place] 1.030, Urine Protein 2+H, Urine Glucose (UA) 3+H, Urine Ketones 2+H, Urine Blood 1+H, Urine Nitrite POSITIVEH, Urine Bilirubin NEGATIVE, Urine Urobilinogen 0.2, Urine Leukocyte Esterase 2+H, Urine WBC (Auto) 68H, Urine RBC (Auto) 12H, Urine Hyaline Casts (Auto) 0, Urine Bacteria (Auto) 1+H, Urine Squamous Epithelial Cells 5, Urine Sperm (Auto) 06/21/19 19:49: Immature Granulocyte % (Auto) 0.4, White Blood Count 7.8, Red Blood Count 5.30, Hemoglobin 14.7, Hematocrit 45.1, Mean Corpuscular Volume 85.1, Mean Corpuscular Hemoglobin 27.7, Mean Corpuscular Hemoglobin Concent 32.6, Red Cell Distribution Width 13.7, Platelet Count 231, Neutrophils (%) (Auto) 78.2H, Lymphocytes (%) (Auto) 17.1L, Monocytes (%) (Auto) 3.5, Eosinophils (%) (Auto) 0.3, Basophils (%) (Auto) 0.5, Neutrophils # (Auto) 6.1, Lymphocytes # (Auto) 1.3L, Monocytes # (Auto) 0.3, Eosinophils # (Auto) 0.0, Basophils # (Auto) 0.0, Nucleated Red Blo od Cells % (auto) 0.0, Osmolality 316H, Phosphorus Level 2.9, Magnesium Level 2.3, Aspartate Amino Transf (AST/SGOT) 15, Alanine Aminotransferase (ALT/SGPT) 26, Alkaline Phosphatase 91, Total Bilirubin 0.5, Direct Bilirubin < 0.1, Total Protein 8.5H, Albumin 3.8, Albumin/Globulin Ratio 0.81L, Lipase 105, B- Hydroxybutyrate > 46.00H 06/21/19 21:58: POC Lactate (Misc Panel) 1.37 06/21/19 22:02: POC Glucose (Misc Panel) 429H, POC Sodium (Misc Panel) 134L, POC Potassium (Misc Panel) 4.1, POC Chloride (Misc Panel) 106, POC Total CO2 (Misc Panel) 12.0L, POC Blood Urea Nitrogen (Misc Panel 23, POC Ionized Calcium (Misc Panel) 5.1, POC Creatinine (Misc Panel) 0.8, POC Hematocrit (Misc Panel) 50.0 06/21/19 22:25: POC Beta HCG, Quantitative < 5.0 06/21/19 23:11: Blood Gas Bicarbonate Standard 10.9L, Arterial Blood pH 7.182*L, Arterial Blood Partial Pressure CO2 20.8L, Arterial Blood Partial Pressure O2 136.8H, Arterial Blood Total CO2 8.3L, Arterial Blood HCO3 7.6L, Arterial Blood Base Excess - 18.7L, Arterial Blood Oxygen Saturation 98.6 06/21/19 23:27: Bedside Glucose (Misc Panel) 443H 06/22/19 00:23: Bedside Glucose (Misc Panel) 400H 06/22/19 01:34: Bedside Glucose (Misc Panel) 265H 06/22/19 02:37: Bedside Glucose (Misc Panel) 186H 06/22/19 02:44: Immature Granulocyte % (Auto) 0.5, White Blood Count 7.8, Red Blood Count 4.69, Hemoglobin 12.9, Hematocrit 38.7, Mean Corpuscular Volume 82.5, Mean Corpuscular Hemoglobin 27.5, Mean Corpuscular Hemoglobin Concent 33.3, Red Cell Distribution Width 13.7, Platelet Count 247, Neutrophils (%) (Auto) 77.8H, Lymphocytes (%) (Auto) 15.3L, Monocytes (%) (Auto) 5.6H, Eosinophils (%) (Auto) 0.3, Basophils (%) (Auto) 0.5, Neutrophils # (Auto) 6.1, Lymphocytes # (Auto) 1.2L, Monocytes # (Auto) 0.4, Eosinophils # (Auto) 0.0, Basophils # (Auto) 0.0, Nucleated Red Blood Cells % (auto) 0.0 CBC/BMP Laboratory Tests 06/21/19 19:49 Red Blood Count 5.30, Mean Corpuscular Volume 85.1, Mean Corpuscular Hemoglobin 27.7, Mean Corpuscular Hemoglobin Concent 32.6, Red Cell Distribution Width 13.7, Neutrophils (%) (Auto) 78.2 H, Lymphocytes (%) (Auto) 17.1 L, Monocytes (%) (Auto) 3.5, Eosinophils (%) (Auto) 0.3, Basophils (%) (Auto) 0.5, Neutrophils # (Auto) 6.1, Lymphocytes # (Auto) 1.3 L, Monocytes # (Auto) 0.3, Eosinophils # (Auto) 0.0, Basophils # (Auto) 0.0 06/22/19 02:44 Red Blood Count 4.69, Mean Corpuscular Volume 82.5, Mean Corpuscular Hemoglobin 27.5, Mean Corpuscular Hemoglobin Concent 33.3, Red Cell Distribution Width 1 3.7, Neutrophils (%) (Auto) 77.8 H, Lymphocytes (%) (Auto) 15.3 L, Monocytes (%) (Auto) 5.6 H, Eosinophils (%) (Auto) 0.3, Basophils (%) (Auto) 0.5, Neutrophils # (Auto) 6.1, Lymphocytes # (Auto) 1.2 L, Monocytes # (Auto) 0.4, Eosinophils # (Auto) 0.0, Basophils # (Auto) 0.0 Microbiology Microbiology 06/22/19 Blood Culture, Received Pending 06/21/19 Urine Culture, Received Pending Home Medications Scheduled Cyclosporine (Restasis) 0.05 % Emu, 1 DROP OU BID Ergocalciferol (Vitamin D2) (Vitamin D2) 50,000 Unit Capsule, 50,000 UNIT PO 1XWK TUESDAY Insulin Degludec (Tresiba Flextouch U-100) 100 Unit/Ml Inj, 33 UNITS SC DAILY Insulin Human Lispro (Novolog) 100 U/Ml Inj, 1 DOSE SC ACHS PER SLIDING SCALE Allergies Coded Allergies: TREES (Verified Allergy, Unknown, 06/21/19) mold (Verified Allergy, Unknown, 06/21/19) A-FIB/CHADSVASC A-FIB History Current/History of A-Fib/PAF?: No Current PO Anticoag Therapy: No AGNES SCOTT MD Jun 22, 2019 03:15
[2019-06-22 03:17] LABS: ALBUMIN 3.2 GM/DL (3.2-5.2); ALT/SGPT 20 U/L (12-78); BILIRUBIN,TOTAL 0.4 MG/DL (0.2-1.0); BLOOD UREA NITROGEN 20 MG/DL (7-18); CALCIUM LEVEL 9.1 MG/DL (8.5-10.1); CARBON DIOXIDE LEVEL 12 MEQ/L (21-32); CHLORIDE LEVEL 114 MEQ/L (98-107); CREATININE FOR GFR 1.11 MG/DL (0.55-1.30); GLOMERULAR FILTRATION RATE > 60.0 (>60); GLUCOSE, FASTING 194 MG/DL (70-100); POTASSIUM SERUM 3.4 MEQ/L (3.5-5.1); SODIUM LEVEL 141 MEQ/L (136-145); TOTAL PROTEIN 7.4 GM/DL (6.4-8.2)
[2019-06-22] MEDS ORDERED: D5W/0.45% SODIUM CHLORIDE 1,000 ML IV SCH (03:30)
[2019-06-22 04:00] VITALS: BP 119/57
[2019-06-22] MEDS: LevoFLOXacin IV 500 MG in APPROPRIATE DILUENT 1 EA IV SCH (05:49)
[2019-06-22] MEDS: ENOXAPARIN 40 MG/0.4 ML SYRINGE (J1650) SC SCH (05:49)
[2019-06-22 07:39] LABS: BLOOD UREA NITROGEN 16 MG/DL (7-18); CALCIUM LEVEL 8.5 MG/DL (8.5-10.1); CARBON DIOXIDE LEVEL 13 MEQ/L (21-32); CHLORIDE LEVEL 115 MEQ/L (98-107); CREATININE FOR GFR 1.08 MG/DL (0.55-1.30); GLOMERULAR FILTRATION RATE > 60.0 (>60); GLUCOSE, FASTING 140 MG/DL (70-100); PHOSPHORUS LEVEL 1.4 MG/DL (2.5-4.9); POTASSIUM SERUM 3.8 MEQ/L (3.5-5.1); SODIUM LEVEL 142 MEQ/L (136-145)
[2019-06-22 07:41] LABS: HEMOGLOBIN A1c 10.1 %
[2019-06-22 08:00] VITALS: BP 137/84
[2019-06-22] MEDS: INSULIN HUMAN REGULAR 100 UNITS in NS 99 ML IV SCH ×2 (09:25→16:00)
[2019-06-22] MEDS ORDERED: KCL 20MEQ IN D5/0.45NS 1000ML 1,000 ML IV SCH (10:00)
[2019-06-22] MEDS ORDERED: POTASSIUM PHOSPHATE INJ 18 MMOL in D5W 250 ML IV ONE (11:00)
--- NOTE | 2019-06-22 11:18 | CR ---
DATE OF CONSULTATION: 06/22/2019 HISTORY OF PRESENT ILLNESS: Ms. Paez is a 33-year-old female with a past medical history of type 1 diabetes, hyperlipidemia, esophagitis, who presented to the emergency department with complaints of nausea and vomiting for the past several days. The patient reports her symptoms started initially with vomiting and diarrhea and continued to progress with nausea and vomiting with a decreased oral intake for the last few days. She reported she had been compliant with her insulin and that her fingerstick glucoses prior to her symptoms were in the 100-200 and after she started having the nausea and vomiting had gone up to 300s. The patient denies having any sick contacts. 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 The patient had gone to urgent care where she had a UA done that showed ketones and she was sent to the emergency department for further evaluation. She denied having any fevers or chills at home. No dysuria. She denied having any chest pain. No shortness of breath. No coughing. No increased lower extremity edema. No significant abdominal pain. The patient has previously been admitted for diabetic ketoacidosis, the last episode was last year in May. The patient reports her diabetes is being managed by her primary care. The patient was admitted to the intensive care unit (ICU) for DKA. She was given IV fluids and started on an insulin drip. She was also given antibiotic with Levaquin for a urinary tract infection (UTI). She reports her vomiting has improved but she continues to have the nausea this morning. She denies any abdominal pain. Has not had any fevers or chills and denies any dysuria. HOME MEDICATIONS: - cyclosporine - vitamin D - insulin degludec and lispro sliding scale ALLERGIES: MOLD and TREES. PAST MEDICAL HISTORY/PAST SURGICAL HISTORY: 1. Type 1 diabetes. 2. Hyperlipidemia. 3. Esophagitis. 4. Status post LEEP. SOCIAL HISTORY: Denies history of smoking or alcohol use. FAMILY HISTORY: Coronary disease, hypertension, hyperlipidemia, diabetes. PHYSICAL EXAMINATION: Temperature 98.5, pulse 116, respirations 20, blood pressure 164/91, oxygen saturation 96% on room air. GENERAL: The patient is well developed, well nourished. She is lying in bed in no acute distress. She is awake and alert and responds appropriately. HEENT: Normocephalic, atraumatic. Moist mucous membranes. Neck is supple. Trachea is midline. There is no palpable adenopathy. CARDIOVASCULAR: Regular rhythm. Tachycardic. Normal S1, S2. No murmurs appreciated. LUNGS: Clear to auscultation bilaterally. No wheezes, rales or rhonchi. She is not using any accessory muscles of respiration. ABDOMEN: Soft, nontender, nondistended. Bowel sounds are normal. EXTREMITIES: There is no lower extremity edema noted bilaterally. Peripheral pulses are palpable. LABORATORY DATA WBC 7.8, hemoglobin 12.9, platelets 247. Chemistry: Sodium 142, potassium 3.8, chloride 115, bicarbonate 13, BUN 16, creatinine 1.08, glucose is 140, anion gap 14, phos 1.4. Initial ABG showed a pH of 7.182, pCO2 of 20.8, and pO2 of 136.8. On admission, beta hydroxybutyrate was positive. UA was positive for protein, glucose, ketones and blood. Nitrates were positive and leukocyte esterase also positive and there was +1 bacteria. ASSESSMENT/PLAN: Ms. Paez is a 33-year female with a past medical history of type 1 diabetes, hyperlipidemia, previous episodes of diabetic ketoacidosis, who presents with complaints of nausea and vomiting and was found to be in DKA possibly secondary to infection with a urinary tract infection (UTI). The patient was given normal saline IV fluids and started on an insulin drip. Her anion gap has improved but is not fully closed yet and she is still acidotic with a bicarbonate of 13. The patient also continues to complain of some nausea but has not had any vomiting currently. - Would continue with the insulin drip until her anion gap has closed on two subsequent chemistries. The patient will need BMP every 4 hours with a VBG while on the DKA protocol. Once her anion gap has remained closed on two subsequent BMPs, she can then be transitioned to long-acting insulin with a 2-hour overlap of the insulin drip. - The patient was on D5 half normal saline. We will add potassium to the IV fluids as her potassium was 3.8 this morning. We will change her fluids to D5 half normal saline with 20 mEq of KCl and continue her fluids and monitoring her fingerstick glucose to maintain a fingerstick glucose between 150 and 200 until AG has resolved by adjusting the rate of her fluids - Continue to monitor her magnesium and phosphorous and replete as needed. Continue the patient nothing by mouth until resolution of her DKA. She can get water and ice chips, however. - Continue with antibiotics for UTI. Followup results of blood cultures and urine cultures to narrow and de-escalate antibiotics. - Deep vein thrombosis (DVT) prophylaxis with Lovenox. Total critical care time spent, not including any procedures, approximately 1 hour and 20 minutes. Please do not hesitate to call if any further questions or concerns. RADHIKAD
[2019-06-22 12:00] VITALS: BP 120/85
[2019-06-22 12:38] LABS: VENOUS BASE EXCESS -10.9 (-2.0-2.0); VENOUS HCO3 14.6 MEQ/L (23.0-27.0); VENOUS O2 SATURATION 99.1 % (60.0-80.0); VENOUS PARTIAL PRESSURE CO2 31.8 mmHg (38.0-50.0); VENOUS PARTIAL PRESSURE O2 185.4 mmHg (30.0-50.0); VENOUS STANDARD HCO3 15.9 MEQ/L; VENOUS TOTAL CO2 15.6 MEQ/L (24.0-28.0)
[2019-06-22 13:17] LABS: BLOOD UREA NITROGEN 15 MG/DL (7-18); CALCIUM LEVEL 8.7 MG/DL (8.5-10.1); CARBON DIOXIDE LEVEL 18 MEQ/L (21-32); CHLORIDE LEVEL 113 MEQ/L (98-107); CREATININE FOR GFR 0.97 MG/DL (0.55-1.30); GLOMERULAR FILTRATION RATE > 60.0 (>60); GLUCOSE, FASTING 165 MG/DL (70-100); PHOSPHORUS LEVEL 2.9 MG/DL (2.5-4.9); POTASSIUM SERUM 4.1 MEQ/L (3.5-5.1); SODIUM LEVEL 141 MEQ/L (136-145)
[2019-06-22] MEDS: TRESIBA SC SCH (14:30)
[2019-06-22 15:42] LABS: VENOUS BASE EXCESS -14.2 (-2.0-2.0); VENOUS HCO3 12.1 MEQ/L (23.0-27.0); VENOUS O2 SATURATION 99.3 % (60.0-80.0); VENOUS PARTIAL PRESSURE CO2 29.9 mmHg (38.0-50.0); VENOUS PARTIAL PRESSURE O2 170.4 mmHg (30.0-50.0); VENOUS PH 7.224 UNITS (7.330-7.430); VENOUS STANDARD HCO3 13.7 MEQ/L
[2019-06-22 16:35] LABS: BLOOD UREA NITROGEN 15 MG/DL (7-18); CALCIUM LEVEL 8.6 MG/DL (8.5-10.1); CARBON DIOXIDE LEVEL 16 MEQ/L (21-32); CHLORIDE LEVEL 112 MEQ/L (98-107); CREATININE FOR GFR 0.93 MG/DL (0.55-1.30); GLOMERULAR FILTRATION RATE > 60.0 (>60); GLUCOSE, FASTING 158 MG/DL (70-100); MAGNESIUM LEVEL 1.9 MG/DL (1.8-2.4); PHOSPHORUS LEVEL 2.5 MG/DL (2.5-4.9); SODIUM LEVEL 139 MEQ/L (136-145)
[2019-06-22] MEDS ORDERED: HumaLOG INSULIN (NovoLOG) PER UNIT SC STA (16:46)
[2019-06-22] MEDS ORDERED: MAG SULF 1GM/100ML (MAG RUN) 1 GM in APPROPRIATE DILUENT 1 EA IV ONE (17:00)
[2019-06-22] MEDS: D5W/0.45% SODIUM CHLORIDE 1,000 ML IV SCH ×2 (17:01→23:31)
[2019-06-22] MEDS ORDERED: HumaLOG INSULIN (NovoLOG) PER UNIT SC ONE ×2 (18:00→20:00)
[2019-06-22] MEDS: HumaLOG INSULIN (NovoLOG) PER UNIT SC SCH ×2 (18:05→20:16)
[2019-06-22 19:57] LABS: CALCIUM LEVEL 7.9 MG/DL (8.5-10.1); CREATININE FOR GFR 1.19 MG/DL (0.55-1.30); GLOMERULAR FILTRATION RATE 56.3 (>60); POTASSIUM SERUM 3.2 MEQ/L (3.5-5.1)
[2019-06-22 22:00] VITALS: BP 114/64
[2019-06-22 23:26] LABS: BLOOD UREA NITROGEN 12 MG/DL (7-18); CALCIUM LEVEL 8.6 MG/DL (8.5-10.1); CARBON DIOXIDE LEVEL 20 MEQ/L (21-32); CHLORIDE LEVEL 113 MEQ/L (98-107); CREATININE FOR GFR 0.95 MG/DL (0.55-1.30); GLOMERULAR FILTRATION RATE > 60.0 (>60); GLUCOSE, FASTING 149 MG/DL (70-100); POTASSIUM SERUM 3.3 MEQ/L (3.5-5.1); SODIUM LEVEL 140 MEQ/L (136-145)
[2019-06-23] MEDS: ENOXAPARIN 40 MG/0.4 ML SYRINGE (J1650) SC SCH (05:33)
[2019-06-23] MEDS: D5W/0.45% SODIUM CHLORIDE 1,000 ML IV SCH ×3 (05:34→23:17)
[2019-06-23] MEDS: LevoFLOXacin IV 500 MG in APPROPRIATE DILUENT 1 EA IV SCH (05:34)
[2019-06-23 06:00] VITALS: BP 114/62
[2019-06-23 06:54] LABS: HEMATOCRIT 33.3 % (36.0-47.0); HEMOGLOBIN 11.2 g/dl (12.0-15.5); MEAN CORPUSCULAR HEMOGLOBIN 28.3 pg (27.0-33.0); MEAN CORPUSCULAR HGB CONC 33.6 g/dl (32.0-36.5); MEAN CORPUSCULAR VOLUME 84.1 fl (80.0-96.0); PLATELET COUNT, AUTOMATED 154 10^3/uL (150-450); RED BLOOD COUNT 3.96 10^6/uL (4.00-5.40); WHITE BLOOD COUNT 3.7 10^3/uL (4.0-10.0)
[2019-06-23 07:19] LABS: ALBUMIN 2.4 GM/DL (3.2-5.2); ALT/SGPT 14 U/L (12-78); BILIRUBIN,TOTAL 0.3 MG/DL (0.2-1.0); BLOOD UREA NITROGEN 9 MG/DL (7-18); CALCIUM LEVEL 7.8 MG/DL (8.5-10.1); CARBON DIOXIDE LEVEL 19 MEQ/L (21-32); CHLORIDE LEVEL 111 MEQ/L (98-107); CREATININE FOR GFR 0.82 MG/DL (0.55-1.30); GLOMERULAR FILTRATION RATE > 60.0 (>60); GLUCOSE, FASTING 269 MG/DL (70-100); POTASSIUM SERUM 3.2 MEQ/L (3.5-5.1); SODIUM LEVEL 139 MEQ/L (136-145); TOTAL PROTEIN 5.3 GM/DL (6.4-8.2)
[2019-06-23] MEDS: TRESIBA SC SCH (08:25)
[2019-06-23] MEDS: HumaLOG INSULIN (NovoLOG) PER UNIT SC SCH ×6 (08:25→21:00)
[2019-06-23] MEDS ORDERED: POTASSIUM CHLORIDE 10 MEQ SR TABLET PO SCH (09:00)
--- NOTE | 2019-06-23 10:25 | IPN ---
DATE OF SERVICE: 06/22/2019 The patient complains of feeling tired. No nausea. No vomiting. Asking to eat. The patient currently on insulin drip with Tresiba 33 units daily have been given 2 hours prior to discontinuing insulin drip. The patient denies any fever or chills, nausea or vomiting currently. VITAL SIGNS: Temperature 98.6, pulse 100, respiratory rate 16, blood pressure 120/85, 98% on room air. Generally awake, alert, oriented times three, answering questions appropriately. Lungs are clear to auscultation. No wheezing, rales, or rhonchi. Heart: S1, S2, sinus tachycardia. Abdomen is soft, nontender, nondistended. Positive bowel sounds. Extremities: No cyanosis, clubbing, or pitting edema. LABORATORY DATA: CBC, metabolic panel, calcium, phosphorus, magnesium have been reviewed. ASSESSMENT AND PLAN: 33-year-old female with history of type 1 diabetes, esophagitis, and hyperlipidemia presented with nausea, vomiting, diarrhea, found to be in diabetic ketoacidosis, on insulin drip and intravenous (IV) fluids. The patient is found to have abnormal urinalysis, started on Levaquin for urinary tract infection (UTI). IMPRESSION: 1. Diabetic ketoacidosis status post insulin drip. Currently on insulin sliding scale. Resumed on her home dose of Tresiba 33 units subcu daily and consistent carbohydrate diet. On day #2 worsening bicarbonate patient has been getting 0.3 units per kg, which is 20 units. Lispro insulin subcu repeat at 0.2 units per kg for mild diabetic ketoacidosis (DKA) to prevent going back to diabetic ketoacidosis. Will repeat basic metabolic panel and magnesium every 4 hours. 2. Urinary tract infection. Urine culture is still pending. Currently on IV Levaquin.
[2019-06-23 11:56] LABS: BLOOD UREA NITROGEN 7 MG/DL (7-18); CALCIUM LEVEL 7.9 MG/DL (8.5-10.1); CARBON DIOXIDE LEVEL 18 MEQ/L (21-32); CHLORIDE LEVEL 114 MEQ/L (98-107); CREATININE FOR GFR 0.95 MG/DL (0.55-1.30); GLOMERULAR FILTRATION RATE > 60.0 (>60); GLUCOSE, FASTING 204 MG/DL (70-100); PHOSPHORUS LEVEL 1.2 MG/DL (2.5-4.9); POTASSIUM SERUM 3.3 MEQ/L (3.5-5.1); SODIUM LEVEL 142 MEQ/L (136-145)
[2019-06-23] MEDS ORDERED: HumaLOG INSULIN (NovoLOG) PER UNIT SC ONE ×3 (12:00→13:45)
[2019-06-23] MEDS ORDERED: POTASSIUM PHOSPHATE INJ 30 MMOL in D5W 500 ML IV ONE (13:45)
[2019-06-23 14:00] VITALS: BP 115/85
[2019-06-23 15:14] LABS: BLOOD UREA NITROGEN 7 MG/DL (7-18); CALCIUM LEVEL 8.5 MG/DL (8.5-10.1); CARBON DIOXIDE LEVEL 20 MEQ/L (21-32); CHLORIDE LEVEL 119 MEQ/L (98-107); CREATININE FOR GFR 0.78 MG/DL (0.55-1.30); GLOMERULAR FILTRATION RATE > 60.0 (>60); GLUCOSE, FASTING 78 MG/DL (70-100); MAGNESIUM LEVEL 2.1 MG/DL (1.8-2.4); PHOSPHORUS LEVEL 0.5 MG/DL (2.5-4.9); POTASSIUM SERUM 3.1 MEQ/L (3.5-5.1); SODIUM LEVEL 145 MEQ/L (136-145)
[2019-06-23] MEDS ORDERED: POTASSIUM PHOSPHATE INJ 18 MMOL in D5W 250 ML IV ONE (16:00)
[2019-06-23] MEDS: POTASSIUM CHLORIDE 10 MEQ SR TABLET PO SCH ×2 (16:02→23:17)
[2019-06-23] MEDS ORDERED: POTASSIUM CHLORIDE 10 MEQ SR TABLET PO ONE (16:15)
[2019-06-23] MEDS: NEUTRA-PHOS 1.5 GM PACKET PO SCH ×2 (17:27→23:17)
[2019-06-23] MEDS ORDERED: KCL 40MEQ IN D5/0.45NS 1000ML 1,000 ML IV SCH (19:00)
[2019-06-23 19:17] LABS: BLOOD UREA NITROGEN 7 MG/DL (7-18); CALCIUM LEVEL 8.4 MG/DL (8.5-10.1); CARBON DIOXIDE LEVEL 22 MEQ/L (21-32); CHLORIDE LEVEL 119 MEQ/L (98-107); CREATININE FOR GFR 0.79 MG/DL (0.55-1.30); GLOMERULAR FILTRATION RATE > 60.0 (>60); GLUCOSE, FASTING 98 MG/DL (70-100); MAGNESIUM LEVEL 2.1 MG/DL (1.8-2.4); PHOSPHORUS LEVEL 2.1 MG/DL (2.5-4.9); SODIUM LEVEL 146 MEQ/L (136-145)
[2019-06-23 22:00] VITALS: BP 123/89
[2019-06-23 23:04] LABS: BLOOD UREA NITROGEN 5 MG/DL (7-18); CALCIUM LEVEL 8.2 MG/DL (8.5-10.1); CARBON DIOXIDE LEVEL 21 MEQ/L (21-32); CHLORIDE LEVEL 120 MEQ/L (98-107); CREATININE FOR GFR 0.79 MG/DL (0.55-1.30); GLOMERULAR FILTRATION RATE > 60.0 (>60); GLUCOSE, FASTING 69 MG/DL (70-100); PHOSPHORUS LEVEL 1.3 MG/DL (2.5-4.9); POTASSIUM SERUM 3.9 MEQ/L (3.5-5.1); SODIUM LEVEL 145 MEQ/L (136-145)
[2019-06-24] MEDS: D5W/0.45% SODIUM CHLORIDE 1,000 ML IV SCH (01:45)
[2019-06-24 03:46] LABS: BLOOD UREA NITROGEN 4 MG/DL (7-18); CALCIUM LEVEL 7.7 MG/DL (8.5-10.1); CARBON DIOXIDE LEVEL 21 MEQ/L (21-32); CHLORIDE LEVEL 119 MEQ/L (98-107); CREATININE FOR GFR 0.65 MG/DL (0.55-1.30); GLOMERULAR FILTRATION RATE > 60.0 (>60); GLUCOSE, FASTING 153 MG/DL (70-100); MAGNESIUM LEVEL 1.9 MG/DL (1.8-2.4); PHOSPHORUS LEVEL 1.8 MG/DL (2.5-4.9); POTASSIUM SERUM 3.7 MEQ/L (3.5-5.1); SODIUM LEVEL 145 MEQ/L (136-145)
[2019-06-24] MEDS: ENOXAPARIN 40 MG/0.4 ML SYRINGE (J1650) SC SCH (05:20)
[2019-06-24] MEDS: LevoFLOXacin IV 500 MG in APPROPRIATE DILUENT 1 EA IV SCH (05:21)
[2019-06-24 06:00] VITALS: BP 115/71
[2019-06-24] MEDS ORDERED: D10W 500 ML IV SCH ×2 (06:30→08:00)
[2019-06-24] MEDS ORDERED: FUROSEMIDE 40 MG/4 ML VIAL (J1940) IV ONE (06:30)
[2019-06-24] MEDS ORDERED: POTASSIUM PHOSPHATE INJ 18 MMOL in D5W 250 ML IV ONE ×2 (06:45→14:00)
[2019-06-24] MEDS ORDERED: MAG SULF 1GM/100ML (MAG RUN) 1 GM in APPROPRIATE DILUENT 1 EA IV ONE ×2 (06:45→11:00)
[2019-06-24] MEDS ORDERED: D10W 1,000 ML IV SCH (07:00)
[2019-06-24] MEDS: HumaLOG INSULIN (NovoLOG) PER UNIT SC SCH ×7 (07:30→21:00)
[2019-06-24] MEDS ORDERED: POTASSIUM PHOSPHATE INJ 18 MMOL in D5W 250 ML IV SCH (08:00)
[2019-06-24] MEDS: TRESIBA SC SCH (09:08)
[2019-06-24] MEDS: POTASSIUM CHLORIDE 10 MEQ SR TABLET PO SCH ×3 (09:08→22:21)
[2019-06-24] MEDS: NEUTRA-PHOS 1.5 GM PACKET PO SCH ×4 (09:08→22:22)
[2019-06-24 09:36] LABS: BLOOD UREA NITROGEN 3 MG/DL (7-18); CALCIUM LEVEL 8.1 MG/DL (8.5-10.1); CARBON DIOXIDE LEVEL 25 MEQ/L (21-32); CHLORIDE LEVEL 112 MEQ/L (98-107); GLOMERULAR FILTRATION RATE > 60.0 (>60); GLUCOSE, FASTING 278 MG/DL (70-100); MAGNESIUM LEVEL 1.8 MG/DL (1.8-2.4); PHOSPHORUS LEVEL 1.7 MG/DL (2.5-4.9); POTASSIUM SERUM 3.9 MEQ/L (3.5-5.1); SODIUM LEVEL 142 MEQ/L (136-145)
[2019-06-24 10:14] LABS: ACETONE/KETONE 1.39 MG/DL (<2.81)
[2019-06-24 11:16] LABS: BLOOD UREA NITROGEN 3 MG/DL (7-18); CALCIUM LEVEL 8.1 MG/DL (8.5-10.1); CARBON DIOXIDE LEVEL 22 MEQ/L (21-32); CHLORIDE LEVEL 112 MEQ/L (98-107); CREATININE FOR GFR 0.95 MG/DL (0.55-1.30); GLOMERULAR FILTRATION RATE > 60.0 (>60); GLUCOSE, FASTING 201 MG/DL (70-100); MAGNESIUM LEVEL 2.3 MG/DL (1.8-2.4); PHOSPHORUS LEVEL 2.2 MG/DL (2.5-4.9); POTASSIUM SERUM 3.8 MEQ/L (3.5-5.1); SODIUM LEVEL 142 MEQ/L (136-145)
--- NOTE | 2019-06-24 13:20 | IPN ---
DATE OF SERVICE: 06/23/2019 Patient is eating well. Tolerating her diet. No nausea or vomiting. No fever or chills. Denies any dysuria, urgency or frequency. Urine culture grew Escherichia (E) coli. Currently on Levaquin. Patient's metabolic panel continues to show worsening acidosis. Patient has been given lispro insulin 0.3 units per kg and then 0.2 units per kg every hour. Potassium, magnesium, and phosphorus have been supplemented. Currently is till on D5 to prevent hypoglycemia. Vital signs: Temperature 97.6, pulse 83, respiratory 18, blood pressure 114/62, 98% on room air. Generally awake, alert, oriented times three, answering questions appropriately. No cyanosis or clubbing. Lungs are clear to auscultation. Abdomen is soft, nontender, nondistended. Heart: S1, S2, sinus rhythm. Extremities: No cyanosis, clubbing, or pitting edema. Laboratory data has been reviewed. ASSESSMENT AND PLAN: 33-year-old female with urinary tract infection (UTI) and diabetic ketoacidosis (DKA). IMPRESSION: 1. Diabetic ketoacidosis. Currently on D5, lispro insulin sliding scale, and Tresiba. Tolerating her diet well. 2. Urinary tract infection. On Levaquin.
[2019-06-24 15:47] LABS: BLOOD UREA NITROGEN 2 MG/DL (7-18); CALCIUM LEVEL 8.3 MG/DL (8.5-10.1); CARBON DIOXIDE LEVEL 24 MEQ/L (21-32); CHLORIDE LEVEL 112 MEQ/L (98-107); CREATININE FOR GFR 0.84 MG/DL (0.55-1.30); GLOMERULAR FILTRATION RATE > 60.0 (>60); GLUCOSE, FASTING 153 MG/DL (70-100); MAGNESIUM LEVEL 2.5 MG/DL (1.8-2.4); PHOSPHORUS LEVEL 3.3 MG/DL (2.5-4.9); POTASSIUM SERUM 4.4 MEQ/L (3.5-5.1); SODIUM LEVEL 142 MEQ/L (136-145)
[2019-06-24] MEDS ORDERED: KCL 40MEQ IN D5/0.45NS 1000ML 1,000 ML IV SCH (18:00)
[2019-06-24 19:16] LABS: BLOOD UREA NITROGEN 4 MG/DL (7-18); CALCIUM LEVEL 8.2 MG/DL (8.5-10.1); CARBON DIOXIDE LEVEL 24 MEQ/L (21-32); CHLORIDE LEVEL 111 MEQ/L (98-107); CREATININE FOR GFR 0.95 MG/DL (0.55-1.30); GLOMERULAR FILTRATION RATE > 60.0 (>60); GLUCOSE, FASTING 254 MG/DL (70-100); MAGNESIUM LEVEL 2.3 MG/DL (1.8-2.4); POTASSIUM SERUM 4.6 MEQ/L (3.5-5.1); SODIUM LEVEL 141 MEQ/L (136-145)
[2019-06-24 22:00] VITALS: BP 122/83
[2019-06-24 22:55] LABS: BLOOD UREA NITROGEN 5 MG/DL (7-18); CALCIUM LEVEL 7.7 MG/DL (8.5-10.1); CARBON DIOXIDE LEVEL 20 MEQ/L (21-32); CHLORIDE LEVEL 115 MEQ/L (98-107); CREATININE FOR GFR 0.82 MG/DL (0.55-1.30); GLOMERULAR FILTRATION RATE > 60.0 (>60); GLUCOSE, FASTING 157 MG/DL (70-100); MAGNESIUM LEVEL 2.4 MG/DL (1.8-2.4); PHOSPHORUS LEVEL 2.7 MG/DL (2.5-4.9); POTASSIUM SERUM 5.1 MEQ/L (3.5-5.1); SODIUM LEVEL 141 MEQ/L (136-145)
[2019-06-25 04:35] LABS: BLOOD UREA NITROGEN 7 MG/DL (7-18); CARBON DIOXIDE LEVEL 27 MEQ/L (21-32); CHLORIDE LEVEL 113 MEQ/L (98-107); CREATININE FOR GFR 0.79 MG/DL (0.55-1.30); GLOMERULAR FILTRATION RATE > 60.0 (>60); GLUCOSE, FASTING 234 MG/DL (70-100); MAGNESIUM LEVEL 2.5 MG/DL (1.8-2.4); PHOSPHORUS LEVEL 3.3 MG/DL (2.5-4.9); POTASSIUM SERUM 4.8 MEQ/L (3.5-5.1); SODIUM LEVEL 144 MEQ/L (136-145)
[2019-06-25 06:00] VITALS: BP 144/85
[2019-06-25] MEDS: ENOXAPARIN 40 MG/0.4 ML SYRINGE (J1650) SC SCH (06:06)
[2019-06-25] MEDS: HumaLOG INSULIN (NovoLOG) PER UNIT SC SCH ×4 (08:34→12:00)
[2019-06-25] MEDS: TRESIBA SC SCH (08:36)
[2019-06-25 08:58] LABS: BLOOD UREA NITROGEN 8 MG/DL (7-18); CALCIUM LEVEL 8.7 MG/DL (8.5-10.1); CARBON DIOXIDE LEVEL 25 MEQ/L (21-32); CHLORIDE LEVEL 110 MEQ/L (98-107); CREATININE FOR GFR 0.82 MG/DL (0.55-1.30); GLOMERULAR FILTRATION RATE > 60.0 (>60); GLUCOSE, FASTING 279 MG/DL (70-100); MAGNESIUM LEVEL 2.6 MG/DL (1.8-2.4); SODIUM LEVEL 141 MEQ/L (136-145)
[2019-06-25 10:04] LABS: PHOSPHORUS LEVEL 3.2 MG/DL (2.5-4.9)
--- NOTE | 2019-06-25 19:58 | IPN ---
DATE: 06/24/2019 Patient vomited this morning. No abdominal pain. She does not feel like eating. Patient's temperature 98.5, pulse 74, respiratory rate 18, blood pressure 115/71, 100% on room air. GENERAL: Patient is awake, alert, oriented times three, sleeping, arousable, answering questions appropriately. No jugular venous distention (JVD). No thyromegaly. No cervical lymphadenopathy. LUNGS: Clear to auscultation. No wheezes, rales, or rhonchi. HEART: S1, S2, sinus rhythm. ABDOMEN: Soft, nontender, nondistended. Positive bowel sounds. EXTREMITIES: No clubbing, cyanosis, or pitting edema. LABORATORY DATA: CBC, metabolic panel, magnesium phosphate have been reviewed. Microbiology shows UTI, treated with Levaquin. ASSESSMENT AND PLAN: This is a 33-year-old female, type 1 diabetic, esophagitis, hyperlipidemia, found to be in diabetic ketoacidosis (DKA) with urinary tract infection (UTI). IMPRESSION: 1. Diabetic ketoacidosis (DKA), resolved, status post insulin drip. Currently on Tresiba and Lispro insulin sliding scale. Advance diet to consistent-carbohydrate. 2. Urinary tract infection (UTI). Completed three days of IV Levaquin which has since been discontinued. DISPOSITION: Discharge in the morning if stable.
--- NOTE | 2019-06-26 10:54 | DSES ---
DATE OF ADMISSION: 06/22/2019 DATE OF DISCHARGE: 06/25/2019 PRIMARY DISCHARGE DIAGNOSES: 1. Diabetic ketoacidosis. 2. Urinary tract infection with Escherichia (E) coli. DISCHARGE MEDICATIONS: - Restasis 1 drop both eyes twice a day - vitamin D2 50,000 units weekly - Tresiba FlexTouch 33 units subcu daily - lispro insulin sliding scale DISCHARGE INSTRUCTIONS: Followup with your primary care physician and all around presser within 5 days of discharge. HOSPITAL COURSE: This is a 33-year-old female, presented to the emergency room with nausea, vomiting, abdominal pain. Found to have diabetic ketoacidosis. Transferred to intensive care unit for insulin drip, intravenous (IV) fluids. Dr. Urrutia was consulted for management of diabetic ketoacidosis (DKA). Patient was found to have a urinary tract infection (UTI) treated with 3 days of Levaquin and completed. She otherwise, has had no fever or chills. She tolerated her diet well, and she is to followup with her primary care physician as outpatient within 5 days of discharge and her all around presser. LABS ON DISCHARGE: White count 3.7, hemoglobin 11, hematocrit 32, platelet count 154. Sodium 141, potassium 5, chloride 110, bicarbonate 25, BUN 8, creatinine 0.82, glucose 279, magnesium 2.6, phosphorus 3.2. MICROBIOLOGY: E coli urine culture 06/21/2019 pansensitive. IMAGING STUDIES: None.
== END 2019-06-25 14:54 | disposition home or self-care (01) | DRG 420 ==
LOC: M ED 16:15 → M ED INP 06-22 00:44 → M ICU 06-22 02:03 → M MSPAV 06-22 16:09
PROVIDERS: ADMIT Internal Medicine; ATTEND General Practice
DX: E10.10 Type 1 diabetes mellitus with ketoacidosis without coma (principal); N39.0 Urinary tract infection, site not specified; B96.29 Other Escherichia coli [E. coli] as the cause of diseases classified elsewhere; Z79.899 Other long term (current) drug therapy; Z79.4 Long term (current) use of insulin; E78.5 Hyperlipidemia, unspecified

== ENCOUNTER → 2019-09-25 | Outpatient (REF) | payer OTHER ==
[~2019-09-25] MED LIST changes: +VITA500045 PO
[2019-09-25 16:51] LABS: ALBUMIN 3.1 GM/DL (3.2-5.2); ALT/SGPT 16 U/L (12-78); BILIRUBIN,TOTAL 0.2 MG/DL (0.2-1.0); BLOOD UREA NITROGEN 29 MG/DL (7-18); CALCIUM LEVEL 9.6 MG/DL (8.5-10.1); CARBON DIOXIDE LEVEL 32 MEQ/L (21-32); CHLORIDE LEVEL 100 MEQ/L (98-107); CHOLESTEROL LEVEL 231 MG/DL (<200); CREATININE FOR GFR 1.11 MG/DL (0.55-1.30); GLOMERULAR FILTRATION RATE > 60.0 (>60); GLUCOSE, FASTING 439 MG/DL (70-100); HDL CHOLESTEROL 33 MG/DL (>40); NON-HDL-C 198 MG/DL; SODIUM LEVEL 138 MEQ/L (136-145); TOTAL PROTEIN 7.2 GM/DL (6.4-8.2); TRIGLYCERIDES LEVEL 418 MG/DL (<150)
== END ==
LOC: M LAB REF 16:17
PROVIDERS: ATTEND Nurse Practitioner Family
DX: Z13.9 Encounter for screening, unspecified (principal); E78.70 Disorder of bile acid and cholesterol metabolism, unspecified

== ENCOUNTER 2019-10-10 18:28 | Inpatient (IN) | payer OTHER ==
[~2019-10-10] VITALS: Ht 162.6 cm; Wt 72.0 kg
[2019-10-10] MEDS ORDERED: LISI-542 PO (18:35)
[2019-10-10 20:00] LABS: BASO # 0.1 10^3/uL (0.0-0.2); BASO % 0.6 % (0.0-1.0); HEMATOCRIT 51.1 % (36.0-47.0); HEMOGLOBIN 16.1 g/dl (12.0-15.5); LYMPH # 2.1 10^3/uL (1.5-5.0); LYMPH % 12.8 % (24.0-44.0); MEAN CORPUSCULAR HEMOGLOBIN 28.7 pg (27.0-33.0); MEAN CORPUSCULAR HGB CONC 31.5 g/dl (32.0-36.5); MEAN CORPUSCULAR VOLUME 91.1 fl (80.0-96.0); MONO # 1.1 10^3/uL (0.0-0.8); NEUTROPHILS # 12.6 10^3/uL (1.5-8.5); NEUTROPHILS % 78.1 % (36.0-66.0); PLATELET COUNT, AUTOMATED 364 10^3/uL (150-450); RED BLOOD COUNT 5.61 10^6/uL (4.00-5.40); WHITE BLOOD COUNT 16.2 10^3/uL (4.0-10.0)
[2019-10-10] MEDS ORDERED: ONDANSETRON 4MG/2ML VIAL (J2405) IV ONE (20:00)
[2019-10-10] MEDS ORDERED: NS 1,000 ML IV ONE ×2 (20:15→23:00)
[2019-10-10] MEDS ORDERED: HumuLIN R (REGULAR) INSULIN (NovoLIN R) **100U/ML** PER UNIT IV ONE ×2 (20:15→21:15)
[2019-10-10] MEDS: HEPARIN SOD (PORCINE) 5000 UNITS/ML VIAL SC SCH (21:00)
[2019-10-10 21:36] LABS: HCG, SERUM QUALITATIVE NEGATIVE (NEGATIVE)
[2019-10-10 21:37] LABS: HEMOGLOBIN A1c 11.9 %
[2019-10-10 21:40] LABS: ABG BASE EXCESS -26.2 (-2.0-2.0); ABG HCO3 2.6 MEQ/L (22.0-26.0); ABG O2 SATURATION 99.2 % (95.0-99.0); ABG PARTIAL PRESSURE O2 239.2 mmHg (75.0-100.0); ABG STANDARD HCO3 6.9 MEQ/L (22.0-26.0)
[2019-10-10 21:47] LABS: ACETONE/KETONE > 46.00 MG/DL (<2.81); ALBUMIN 3.7 GM/DL (3.2-5.2); ALT/SGPT 22 U/L (12-78); BILIRUBIN,DIRECT < 0.1 MG/DL (0.0-0.2); BILIRUBIN,TOTAL 0.6 MG/DL (0.2-1.0); BLOOD UREA NITROGEN 28 MG/DL (7-18); CALCIUM LEVEL 9.6 MG/DL (8.5-10.1); CARBON DIOXIDE LEVEL 6 MEQ/L (21-32); CHLORIDE LEVEL 108 MEQ/L (98-107); CREATININE FOR GFR 1.48 MG/DL (0.55-1.30); ETHYL ALCOHOL (ETHANOL) < 0.003 % (0.000-0.010); GLOMERULAR FILTRATION RATE 43.8 (>60); GLUCOSE, FASTING 339 MG/DL (70-100); LIPASE 52 U/L (73-393); POTASSIUM SERUM 5.6 MEQ/L (3.5-5.1); SODIUM LEVEL 138 MEQ/L (136-145); TOTAL PROTEIN 8.7 GM/DL (6.4-8.2)
[2019-10-10 21:48] LABS: ABG pH (ARTERIAL) 7.022 UNITS (7.350-7.450)
[2019-10-10 21:50] LABS: ABG PARTIAL PRESSURE CO2 10.4 mmHg (35.0-45.0)
[2019-10-10] MEDS ORDERED: NS 1,000 ML IV SCH (22:38)
[2019-10-10] MEDS ORDERED: SODIUM BICARBONATE 8.4% INJ 50 ML SYRINGE IV ONE (22:45)
--- NOTE | 2019-10-10 22:57 | HPEPDOC ---
General Date of Admission 10/10/19 Date of Service: Oct 10, 2019 Chief Complaint The patient is a 33-year-old female admitted with a reason for visit of Vomiting. Source: Patient Exam Limitations: No limitations Timing/Duration: 24 hours Severity: Severe Associated Symptoms: Malaise, Nausea History of Present Illness Patient is 33 years old female with past medical history of type 1 diabetes, endometriosis presented hospital with nausea and vomiting. Patient stated that she missed a few doses of insulin and today she developed multiple episodes of vomiting and nausea. In emergency room patient was found to have glucose level of 338, anion gap 24, blood gas showed pH of 7.02 with bicarbonate 10. Patient severe dehydrated on presentation. Of note patient did have multiple admissions in the past for DKA Home Medications Scheduled Cyclosporine (Restasis) 0.05 % Emu, 1 DROP OU BID, (Reported) Insulin Degludec (Tresiba Flextouch U-100) 100 Unit/Ml Inj, 33 UNITS SC DAILY, (Reported) Insulin Human Lispro (Novolog) 100 U/Ml Inj, 1 DOSE SC ACHS, (Reported) PER SLIDING SCALE Lisinopril (Lisinopril) 5 Mg Tablet, 5 MG PO DAILY, (Reported) Allergies Coded Allergies: TREES (Verified Allergy, Unknown, 10/10/19) mold (Verified Allergy, Unknown, 10/10/19) Past Medical History Medical History 1. Type 1 diabetes. 2. Dyslipidemia 3. Esophagitis/gastritis. 4. Status post LEEP 5 endometriosis Family History Father had depression, and anxiety. Mother had diabetes Social History * Smoker: Denies Alcohol: Denies Drugs: denies A-FIB/CHADSVASC A-FIB History Current/History of A-Fib/PAF?: No Current PO Anticoag Therapy: No Review of Systems Constitutional: Reports: Chills, Malaise, Weakness Eyes: Denies: Pain ENT: Denies: Head Aches Skin: Denies: Rash, Lesions Pulmonary: Denies: Dyspnea Cardiovascular: Denies: Chest Pain, Palpitations Gastrointestinal: Reports: Nausea, Vomiting Genitourinary: Denies: Dysuria, Frequency Hematologic: Denies: Bruising, Bleeding Excessively Endocrine: Reports: Polydipsia, Polyuria Musculoskeletal: Denies: Neck Pain, Back Pain Neurological: Denies: Weakness Psych: Reports: Mood Normal Physical Examination General Exam: Positive: Alert, Severe Distress Eye Exam: Positive: PERRLA ENT Exam: Positive: Atraumatic Neck Exam: Positive: Supple; Negative: JVD Chest Exam: Positive: Clear to auscultation Heart Exam: Positive: Tachycardic Telemetry: Positive: Sinus, Tachycardia Extremity Exam: Negative: Clubbing, Cyanosis Skin Exam: Negative: Breakdown, Lesion Neuro Exam: Positive: Normal Gait, Strength at 5/5 X4 ext, Cranial Nerves 3-12 NL Psych Exam: Positive: Mental status NL Vital Signs Vital Signs Date Time Temp Pulse Resp B/P (MAP) Pulse Ox O2 Delivery O2 Flow Rate FiO2 10/10/19 22:18 147/96 (113) 10/10/19 22:15 121 100 10/10/19 20:13 20 Room Air 10/10/19 18:29 97.0 Laboratory Data Labs 24H Laboratory Tests 2 10/10/19 19:42: Immature Granulocyte % (Auto) 1.5, Neutrophils (%) (Auto) 78.1H, Lymphocytes (%) (Auto) 12.8L, Monocytes (%) (Auto) 7.0H, Eosinophils (%) (Auto) 0.0, Basophils (%) (Auto) 0.6, Neutrophils # (Auto) 12.6H, Lymphocytes # (Auto) 2.1, Monocytes # (Auto) 1.1H, Eosinophils # (Auto) 0.0, Basophils # (Auto) 0.1, Nucleated Red Blood Cells % (auto) 0.0, Estimated Mean Plasma Glucose 295H, Hemoglobin A1c 11.9 10/10/19 19:57: Bedside Glucose (Misc Panel) 304H 10/10/19 20:52: Anion Gap 24H, Glomerular Filtration Rate 43.8L, Calcium Level 9.6, Total Bilirubin 0.6, Direct Bilirubin < 0.1, Aspartate Amino Transf (AST/SGOT) 14, Alanine Aminotransferase (ALT/SGPT) 22, Alkaline Phosphatase 111, Total Protein 8.7H, Albumin 3.7, Albumin/Globulin Ratio 0.74L, Lipase 52L, Human Chorionic Gonadotropin, Qual NEGATIVE, Ethyl Alcohol Level < 0.003, B-Hydroxybutyrate > 46.00H 10/10/19 21:34: Blood Gas Bicarbonate Standard 6.9L, Arterial Blood pH 7.022*L, Arterial Blood Partial Pressure CO2 10.4*L, Arterial Blood Partial Pressure O2 239.2H, Arterial Blood Total CO2 3.0L, Arterial Blood HCO3 2.6L, Arterial Blood Base Excess - 26.2L, Arterial Blood Oxygen Saturation 99.2H 10/10/19 22:19: Bedside Glucose (Misc Panel) 272H CBC/BMP Laboratory Tests 10/10/19 19:42 10/10/19 20:52 Assessment/Plan Patient is 33 years old female with past medical history of type 1 diabetes, endometriosis presented hospital with nausea and vomiting. Patient stated that she missed a few doses of insulin and today she developed multiple episodes of vomiting and nausea. In emergency room patient was found to have glucose level of 338, anion gap 24, blood gas showed pH of 7.02 with bicarbonate 10. Patient severe dehydrated on presentation. Of note patient did have multiple admissions in the past for DKA Problems (1) DKA (diabetic ketoacidosis) Onset Date: 03/12/2014 Status: Acute Problem Text: Secondary to noncompliance to medications Insulin drip IV hydration BMP every 2 hours Glucose level every 1 hour Social service consult (2) Metabolic acidosis Status: Acute Problem Text: Secondary to DKA I will give her dose of bicarbonate given a pH of 7.02 Continue monitoring blood gas (3) CLYDE (acute kidney injury) Status: Acute Problem Text: Prerenal secondary to dehydration IV volume expansion Continue to monitor (4) Nausea & vomiting Status: Acute Problem Text: Zofran when necessary (5) Leukocytosis Status: Acute Problem Text: Most likely reactive due to DKA Patient doesn't have any fever, cough, sputum production, diarrhea Plan / VTE VTE Prophylaxis Ordered?: Yes MACK NUNN DO Oct 10, 2019 22:57
[2019-10-10] MEDS: INSULIN HUMAN REGULAR 100 UNITS in NS 99 ML IV SCH (23:42)
[2019-10-11] VITALS (27 sets, daily range): BP systolic 115–153; BP diastolic 61–93
[2019-10-11] MEDS: INSULIN IV RATE CHANGE DOCUMENTATION ML/HR XX SCH ×12 (00:21→23:14)
[2019-10-11] MEDS ORDERED: METOCLOPRAMIDE INJ 10MG/2ML VIAL (J2765) IV ONE (01:00)
[2019-10-11] MEDS: ONDANSETRON 4MG/2ML VIAL (J2405) IV PRN ×3 (02:12→19:10)
[2019-10-11] MEDS ORDERED: INFLUENZA QUADRIVALENT PF VACCINE 0.5ML SYRINGE (90686) IM SCH (03:15)
[2019-10-11 03:42] LABS: VENOUS BASE EXCESS -22.9 (-2.0-2.0); VENOUS HCO3 5.9 MEQ/L (23.0-27.0); VENOUS PARTIAL PRESSURE CO2 21.6 mmHg (38.0-50.0); VENOUS PARTIAL PRESSURE O2 87.6 mmHg (30.0-50.0); VENOUS PH 7.054 UNITS (7.330-7.430); VENOUS STANDARD HCO3 8.5 MEQ/L; VENOUS TOTAL CO2 6.6 MEQ/L (24.0-28.0)
[2019-10-11 04:14] LABS: CALCIUM LEVEL 8.4 MG/DL (8.5-10.1); CREATININE FOR GFR 1.35 MG/DL (0.55-1.30); GLOMERULAR FILTRATION RATE 48.7 (>60); MAGNESIUM LEVEL 2.1 MG/DL (1.8-2.4); POTASSIUM SERUM 4.2 MEQ/L (3.5-5.1)
--- NOTE | 2019-10-11 06:36 | REP ---
Clinical: Central line placement . Comparison: 05/20/2018 . Findings: The mediastinum and cardiac silhouette are stable and within normal limits for portable technique. Right IJ line with tip in the SVC. The lung pike are clear without acute consolidation, effusion, or pneumothorax. Skeletal structures are intact. Impression: No acute cardiopulmonary process appreciated. Electronically Signed by Sixto Trimble MD 10/11/2019 06:27 A
[2019-10-11 06:56] LABS: VENOUS HCO3 10.1 MEQ/L (23.0-27.0); VENOUS O2 SATURATION 97.2 % (60.0-80.0); VENOUS PARTIAL PRESSURE CO2 25.8 mmHg (38.0-50.0); VENOUS PARTIAL PRESSURE O2 99.3 mmHg (30.0-50.0); VENOUS PH 7.212 UNITS (7.330-7.430); VENOUS STANDARD HCO3 12.4 MEQ/L; VENOUS TOTAL CO2 10.9 MEQ/L (24.0-28.0)
[2019-10-11 07:01] LABS: HEMATOCRIT 37.4 % (36.0-47.0); HEMOGLOBIN 12.1 g/dl (12.0-15.5); MEAN CORPUSCULAR HEMOGLOBIN 28.7 pg (27.0-33.0); MEAN CORPUSCULAR HGB CONC 32.4 g/dl (32.0-36.5); MEAN CORPUSCULAR VOLUME 88.6 fl (80.0-96.0); PLATELET COUNT, AUTOMATED 246 10^3/uL (150-450); RED BLOOD COUNT 4.22 10^6/uL (4.00-5.40); WHITE BLOOD COUNT 9.7 10^3/uL (4.0-10.0)
[2019-10-11 07:25] LABS: ACETONE/KETONE > 46.00 MG/DL (<2.81); BLOOD UREA NITROGEN 20 MG/DL (7-18); CALCIUM LEVEL 8.5 MG/DL (8.5-10.1); CARBON DIOXIDE LEVEL 11 MEQ/L (21-32); CHLORIDE LEVEL 120 MEQ/L (98-107); CREATININE FOR GFR 1.22 MG/DL (0.55-1.30); GLOMERULAR FILTRATION RATE 54.7 (>60); GLUCOSE, FASTING 131 MG/DL (70-100); MAGNESIUM LEVEL 2.1 MG/DL (1.8-2.4); POTASSIUM SERUM 3.7 MEQ/L (3.5-5.1); SODIUM LEVEL 149 MEQ/L (136-145)
[2019-10-11] MEDS: D5W/0.45% SODIUM CHLORIDE 1,000 ML IV SCH ×2 (09:03→17:10)
[2019-10-11] MEDS: HEPARIN SOD (PORCINE) 5000 UNITS/ML VIAL SC SCH ×2 (09:03→20:46)
[2019-10-11 09:19] LABS: VENOUS BASE EXCESS -15.2 (-2.0-2.0); VENOUS HCO3 11.1 MEQ/L (23.0-27.0); VENOUS O2 SATURATION 91.1 % (60.0-80.0); VENOUS PARTIAL PRESSURE CO2 28.1 mmHg (38.0-50.0); VENOUS PARTIAL PRESSURE O2 59.9 mmHg (30.0-50.0); VENOUS PH 7.214 UNITS (7.330-7.430); VENOUS STANDARD HCO3 12.8 MEQ/L
[2019-10-11 14:46] LABS: CALCIUM LEVEL 8.8 MG/DL (8.5-10.1); CREATININE FOR GFR 1.33 MG/DL (0.55-1.30); GLOMERULAR FILTRATION RATE 49.5 (>60); POTASSIUM SERUM 3.2 MEQ/L (3.5-5.1)
--- NOTE | 2019-10-11 15:23 | IPNPDOC ---
Text Note Date of Service The patient was seen on 10/11/19. NOTE Ms. Paez was initially somewhat lethargic this morning. Over the course of the day,she is becoming more awake and interactive. She is interested in trying some liquids. The patient was admitted with recurrent DKA. Physical exam: Please see vitals below-- HEENT: Neck is supple with no adenopathy or thyromegaly, she does not have any scleral injection, oral mucosa is dry. Cardiovascular: Regular rate and rhythm with a normal S1 and S2. Respiratory: Clear to auscultation, no wheezing or cough. Abdomen: Soft, nontender, nondistended. Extremities: Palpable pedal and radial pulses, extremities are warm to touch. Neuro: Patient is lethargic but will rouse to answer questions, able to move all extremities fully. Assessment and plan: Diabetic ketoacidosis. Patient's initial treatment included insulin drip, and bicarbonate drip as well. Anion gap is now closed. Patient still has acidosis with depleted serum bicarbonate and so she will continue on insulin drip and IV fluids with dextrose. Will allow clear liquids, then hope to be able to transition patient off of insulin drip and back to her usual regimen with advancing of her diet. She has received oral potassium replacement and will require additional replacement of her phosphorus. VS,Fishbone, I+O VS, Fishbone, I+O Laboratory Tests 10/10/19 19:42 10/10/19 20:52 10/11/19 03:36 10/11/19 06:42 10/11/19 14:13 Vital Signs Date Time Temp Pulse Resp B/P (MAP) Pulse Ox O2 Delivery O2 Flow Rate FiO2 10/11/19 12:00 98.9 115 18 116/63 (80) 100 Room Air I&O- Last 24 Hours up to 6 AM 10/11/19 06:00 Intake Total 124 ml Output Total 600 ml Balance -476 ml CATHI KENNEDY MD Oct 11, 2019 15:23
[2019-10-11] MEDS ORDERED: POTASSIUM CHLORIDE 10 MEQ SR TABLET PO ONE (16:00)
[2019-10-11] MEDS: NEUTRA-PHOS 1.5 GM PACKET PO SCH ×2 (16:15→20:47)
[2019-10-11] MEDS ORDERED: ACETAMINOPHEN TAB 650MG DOSE (2X325MG) PO PRN (19:15)
[2019-10-11 19:49] LABS: VENOUS BASE EXCESS -8.9 (-2.0-2.0); VENOUS O2 SATURATION 97.4 % (60.0-80.0); VENOUS PARTIAL PRESSURE CO2 36.9 mmHg (38.0-50.0); VENOUS PARTIAL PRESSURE O2 97.6 mmHg (30.0-50.0); VENOUS PH 7.282 UNITS (7.330-7.430); VENOUS STANDARD HCO3 17.3 MEQ/L; VENOUS TOTAL CO2 18.2 MEQ/L (24.0-28.0)
[2019-10-11 20:16] LABS: CALCIUM LEVEL 8.2 MG/DL (8.5-10.1); CREATININE FOR GFR 1.16 MG/DL (0.55-1.30); POTASSIUM SERUM 3.2 MEQ/L (3.5-5.1)
[2019-10-11 20:30] LABS: ACETONE/KETONE 25.53 MG/DL (<2.81)
[2019-10-11] MEDS: POTASSIUM PHOSPHATE INJ 20 MMOL in D5W 250 ML IV SCH (20:46)
[2019-10-11 22:57] LABS: GLUCOSE, URINE (UA) MANUAL 2+(250 MG/DL) mg/dL (NEGATIVE)
[2019-10-11 22:58] LABS: BILIRUBIN, URINE MANUAL NEGATIVE (NEGATIVE); KETONE, URINE MANUAL 3+ mg/dL (NEGATIVE); UROBILINOGEN, URINE MANUAL NORMAL (NORMAL)
[2019-10-11 23:17] LABS: BACTERIA, URINE SMALL AMOUNT; SQUAMOUS EPITHELIAL CELL URINE MOD AMOUNT /hpf (SMALL AMT)
[2019-10-11 23:18] LABS: AMORPHOUS SEDIMENT, URINE SMALL AMOUNT (NEGATIVE); HYALINE CAST, URINE 0-1 /lpf (0-1); MUCUS, URINE SMALL AMOUNT (NEGATIVE)
[2019-10-12] VITALS (15 sets, daily range): BP systolic 108–136; BP diastolic 64–89; O2SAT 85
[2019-10-12] MEDS: POTASSIUM PHOSPHATE INJ 20 MMOL in D5W 250 ML IV SCH (00:04)
[2019-10-12] MEDS: INSULIN HUMAN REGULAR 100 UNITS in NS 99 ML IV SCH (00:06)
[2019-10-12] MEDS: INSULIN IV RATE CHANGE DOCUMENTATION ML/HR XX SCH ×12 (00:07→16:22)
[2019-10-12] MEDS: D5W/0.45% SODIUM CHLORIDE 1,000 ML IV SCH ×3 (00:08→16:30)
[2019-10-12 00:28] LABS: VENOUS BASE EXCESS -7.1 (-2.0-2.0); VENOUS O2 SATURATION 97.4 % (60.0-80.0); VENOUS PARTIAL PRESSURE CO2 40.9 mmHg (38.0-50.0); VENOUS PARTIAL PRESSURE O2 100.4 mmHg (30.0-50.0); VENOUS PH 7.286 UNITS (7.330-7.430); VENOUS STANDARD HCO3 18.7 MEQ/L; VENOUS TOTAL CO2 20.3 MEQ/L (24.0-28.0)
[2019-10-12 00:55] LABS: ACETONE/KETONE 7.73 MG/DL (<2.81); CALCIUM LEVEL 8.5 MG/DL (8.5-10.1); CREATININE FOR GFR 1.18 MG/DL (0.55-1.30); GLOMERULAR FILTRATION RATE 56.9 (>60); POTASSIUM SERUM 3.4 MEQ/L (3.5-5.1)
[2019-10-12] MEDS: ONDANSETRON 4MG/2ML VIAL (J2405) IV PRN ×2 (04:15→07:24)
[2019-10-12 06:17] LABS: VENOUS BASE EXCESS -4.4 (-2.0-2.0); VENOUS HCO3 21.3 MEQ/L (23.0-27.0); VENOUS O2 SATURATION 92.2 % (60.0-80.0); VENOUS PARTIAL PRESSURE CO2 41.4 mmHg (38.0-50.0); VENOUS PARTIAL PRESSURE O2 63.3 mmHg (30.0-50.0); VENOUS PH 7.329 UNITS (7.330-7.430); VENOUS STANDARD HCO3 20.7 MEQ/L; VENOUS TOTAL CO2 22.6 MEQ/L (24.0-28.0)
[2019-10-12 06:51] LABS: BLOOD UREA NITROGEN 7 MG/DL (7-18); CALCIUM LEVEL 8.5 MG/DL (8.5-10.1); CARBON DIOXIDE LEVEL 23 MEQ/L (21-32); CHLORIDE LEVEL 114 MEQ/L (98-107); GLOMERULAR FILTRATION RATE > 60.0 (>60); GLUCOSE, FASTING 159 MG/DL (70-100); POTASSIUM SERUM 3.1 MEQ/L (3.5-5.1); SODIUM LEVEL 143 MEQ/L (136-145)
[2019-10-12] MEDS ORDERED: POTASSIUM CHLORIDE 10 MEQ SR TABLET PO ONE ×2 (07:30→18:00)
[2019-10-12] MEDS: KCL 10MEQ/100ML SWI (KRUN) 10 MEQ in IV 1 EA IV SCH ×4 (07:56→11:23)
[2019-10-12] MEDS: NEUTRA-PHOS 1.5 GM PACKET PO SCH ×3 (07:57→20:31)
[2019-10-12] MEDS: HEPARIN SOD (PORCINE) 5000 UNITS/ML VIAL SC SCH ×2 (07:57→20:32)
[2019-10-12] MEDS ORDERED: PROMETHAZINE INJ 25 MG/ML VIAL (J2550) IV PRN (08:00)
--- NOTE | 2019-10-12 16:02 | IPNPDOC ---
Text Note Date of Service The patient was seen on 10/12/19. NOTE SUBJECTIVE: Ms. Paez has not been very active today. She has complained of nausea and has had very poor oral intake today. Patient was admitted with DKA. Her serum bicarbonate and anion gap have normalized. However, as she does not have much oral intake she remains on insulin drip and D5 half-normal. OBJECTIVE: Physical exam: Please see vital signs below HEENT: Neck is supple with no adenopathy or thyromegaly, she does not have any scleral injection, oral mucosa is still dry. Cardiovascular: Regular rate and rhythm with a normal S1 and S2. Respiratory: Clear to auscultation, no wheezing or cough. Abdomen: Soft, nontender, nondistended. Extremities: Palpable pedal and radial pulses, extremities are warm to touch. Neuro: Patient is lethargic but will rouse to answer questions, able to move all extremities fully. ASSESSMENT/PLAN: Diabetic ketoacidosis. The patient's acidosis is now resolved but she still has not resumed oral intake. She continues with D5 half normal and minimal insulin drip. Once she starts oral intake we will stop the insulin drip and start her back on her basal bolus regimen with sliding scale. The patient has had DKA once or twice a year with extended hospital stays. This appears to be her usual pattern. VS,Fishbone, I+O VS, Fishbone, I+O Laboratory Tests 10/11/19 19:40 10/12/19 00:09 10/12/19 06:10 Vital Signs Date Time Temp Pulse Resp B/P (MAP) Pulse Ox O2 Delivery O2 Flow Rate FiO2 10/12/19 12:05 Non-Rebreather 0.0 10/12/19 12:00 98.4 94 18 136/89 (105) I&O- Last 24 Hours up to 6 AM 10/12/19 06:00 Intake Total 3525.5 ml Output Total 1210 ml Balance 2315.5 ml CATHI KENNEDY MD Oct 12, 2019 16:02
[2019-10-12 16:16] LABS: BLOOD UREA NITROGEN 4 MG/DL (7-18); CALCIUM LEVEL 8.5 MG/DL (8.5-10.1); CARBON DIOXIDE LEVEL 24 MEQ/L (21-32); CHLORIDE LEVEL 114 MEQ/L (98-107); CREATININE FOR GFR 0.88 MG/DL (0.55-1.30); GLOMERULAR FILTRATION RATE > 60.0 (>60); GLUCOSE, FASTING 158 MG/DL (70-100); POTASSIUM SERUM 3.1 MEQ/L (3.5-5.1); SODIUM LEVEL 143 MEQ/L (136-145)
[2019-10-12] MEDS ORDERED: GLUCOSE 4 GM CHEW TABLET PO PRN (17:15)
[2019-10-12] MEDS ORDERED: GLUCAGON FOR INJ 1 MG VIAL (J1610) SC PRN (17:15)
[2019-10-12] MEDS ORDERED: DEXTROSE 50% 50 ML SYRINGE IV PRN (17:15)
[2019-10-12] MEDS: HumaLOG INSULIN (NovoLOG) PER UNIT SC SCH (17:30)
[2019-10-12] MEDS: LEVEMIR (INSULIN DETEMIR) 1 UNITS/0.01ML SC SCH (20:32)
[2019-10-12] MEDS ORDERED: HumaLOG INSULIN (NovoLOG) PER UNIT SC SCH (21:00)
[2019-10-13] VITALS: BP 133/90
[2019-10-13 04:03] VITALS: BP 116/75
[2019-10-13 04:56] LABS: BLOOD UREA NITROGEN 4 MG/DL (7-18); CALCIUM LEVEL 8.5 MG/DL (8.5-10.1); CARBON DIOXIDE LEVEL 26 MEQ/L (21-32); CHLORIDE LEVEL 115 MEQ/L (98-107); CREATININE FOR GFR 0.76 MG/DL (0.55-1.30); GLOMERULAR FILTRATION RATE > 60.0 (>60); GLUCOSE, FASTING 124 MG/DL (70-100); MAGNESIUM LEVEL 1.8 MG/DL (1.8-2.4); PHOSPHORUS LEVEL 2.1 MG/DL (2.5-4.9); POTASSIUM SERUM 3.2 MEQ/L (3.5-5.1); SODIUM LEVEL 146 MEQ/L (136-145)
[2019-10-13] MEDS: HumaLOG INSULIN (NovoLOG) PER UNIT SC SCH ×2 (07:30→12:00)
[2019-10-13 08:00] VITALS: BP 150/95
[2019-10-13] MEDS ORDERED: POTASSIUM CHLORIDE 10 MEQ SR TABLET PO ONE (08:00)
[2019-10-13] MEDS: NEUTRA-PHOS 1.5 GM PACKET PO SCH (08:16)
[2019-10-13] MEDS: D5W/0.45% SODIUM CHLORIDE 1,000 ML IV SCH (08:16)
[2019-10-13] MEDS: HEPARIN SOD (PORCINE) 5000 UNITS/ML VIAL SC SCH (08:17)
[2019-10-13] MEDS: LEVEMIR (INSULIN DETEMIR) 1 UNITS/0.01ML SC SCH (09:12)
[2019-10-13] MEDS ORDERED: TRES1INJ2 SC (10:59)
[2019-10-13] MEDS ORDERED: NEUTPW PO (11:02)
--- NOTE | 2019-10-13 15:47 | DS.PDOC ---
Discharge Summary General Date of Admission Oct 10, 2019 at 22:38 Date of Discharge October 13, 2019 Discharge Summary PROCEDURES PERFORMED DURING STAY: None. ADMITTING DIAGNOSES: Recurrent diabetic ketoacidosis DISCHARGE DIAGNOSES: Recurrent diabetic ketoacidosis resolved, phh-[id number] diabetes mellitus, dyslipidemia, endometriosis COMPLICATIONS/CHIEF COMPLAINT: Dehydration,Dka,Nausea And Vomiting. HISTORY OF PRESENT ILLNESS/HOSPITAL COURSE: This is a 33-year-old female with a history of npz-jvjbcxa-azbyaucdx diabetes mellitus. She presented to the hospital with nausea and vomiting. She had missed several doses of insulin. On admission she was found to have a glucose level of 338 with an anion gap of 24, pH of 7.02 with a serum bicarbonate of 10. The patient has had prior admissions at least twice yearly for DKA. The patient was placed in the ICU on an insulin drip. She also received aggressive IV hydration and aggressive bicarbonate drip. It took a while to close her anion gap and normalize her pH/serum bicarbonate. Her nausea resolved, she was able to resume a consistent carbohydrate diet and was restored to a basal bolus insulin regimen. We did divide her basal bolus insulin in half between 2 doses over the course of the day to avoid hypoglycemia.. DISCHARGE MEDICATIONS: Please see below. ALLERGIES: Please see below. PHYSICAL EXAMINATION ON DISCHARGE: VITAL SIGNS: Please see below. HEENT: Neck is supple with no adenopathy or thyromegaly, she does not have any scleral injection, oral mucosa is now moist. Cardiovascular: Regular rate and rhythm with a normal S1 and S2. Respiratory: Clear to auscultation, no wheezing or cough. Abdomen: Soft, nontender, nondistended. Extremities: Palpable pedal and radial pulses, extremities are warm to touch. Neuro: will rouse to answer questions, able to move all extremities fully. LABORATORY DATA: Please see below. IMAGING: PROGNOSIS: ACTIVITY: As tolerated. DIET: Consistent carbohydrate DISCHARGE PLAN: The patient is stable for discharge to home. Again, we have divided her home basal bolus insulin degludec into two daily doses. She will need to follow-up with her primary care provider Nikki Mckenzie within a week or so for any further adjustments. DISPOSITION: 01 Home, Self-Care. DISCHARGE INSTRUCTIONS: ITEMS TO FOLLOWUP ON ON OUTPATIENT DISCHARGE CONDITION: Stable. TIME SPENT ON DISCHARGE: 40 minutes. Vital Signs/I&Os Vital Signs Date Time Temp Pulse Resp B/P (MAP) Pulse Ox O2 Delivery O2 Flow Rate FiO2 10/13/19 08:00 98.3 82 17 150/95 (113) 100 Room Air 10/12/19 12:05 0.0 I&O- Last 24 Hours up to 6 AM 10/13/19 06:00 Intake Total 2321.5 ml Output Total 1950 ml Balance 371.5 ml Laboratory Data Labs 24H Laboratory Tests 2 10/12/19 15:43: Anion Gap 5L, Glomerular Filtration Rate > 60.0, Calcium Level 8.5 10/12/19 16:20: Bedside Glucose (Misc Panel) 164H 10/12/19 17:14: Bedside Glucose (Misc Panel) 128H 10/12/19 20:22: Bedside Glucose (Misc Panel) 297H 10/13/19 04:10: Anion Gap 5L, Glomerular Filtration Rate > 60.0, Calcium Level 8.5, Phosphorus Level 2.1#L, Magnesium Level 1.8 10/13/19 07:58: Bedside Glucose (Misc Panel) 87 10/13/19 12:16: Bedside Glucose (Misc Panel) 239H CBC/BMP Laboratory Tests 10/12/19 15:43 10/13/19 04:10 FSBS Laboratory Tests Test 10/12/19 16:20 10/12/19 17:14 10/12/19 20:22 10/13/19 07:58 Range/Units Bedside Glucose (Misc Panel) 164 128 297 87 70-105 MG/DL Test 10/13/19 12:16 Range/Units Bedside Glucose (Misc Panel) 239 70-105 MG/DL Microbiology Microbiology 10/11/19 Blood Culture - Preliminary, Resulted No Growth after 48 hours. All Specime... Discharge Medications Scheduled Cyclosporine (Restasis) 0.05 % Emu, 1 DROP OU BID, (Reported) Insulin Degludec (Tresiba Flextouch U-100) 100 Unit/Ml Inj, 15 UNITS SC BID Insulin Human Lispro (Novolog) 100 U/Ml Inj, 1 DOSE SC ACHS, (Reported) PER SLIDING SCALE Lisinopril (Lisinopril) 5 Mg Tablet, 5 MG PO DAILY, (Reported) Potassium Phos/Sodium Phos (Phos-Nak Packet) 1 Each Powd.pack, 1 PKT PO TID Allergies Coded Allergies: TREES (Verified Allergy, Unknown, 10/10/19) mold (Verified Allergy, Unknown, 10/10/19) CATHI KENNEDY MD Oct 13, 2019 15:47
--- NOTE | 2019-10-15 08:20 | RO ---
DATE OF PROCEDURE: 10/11/2019 PREOPERATIVE DIAGNOSIS: Diabetic ketoacidosis, in need of central venous access. POSTOPERATIVE DIAGNOSIS: Diabetic ketoacidosis, in need of central venous access. PROCEDURE PERFORMED: Ultrasound-guided right internal jugular triple-lumen central venous line placement. SURGEON: Dr. Adryan Mendieta APPLICATIONS TRAINER: ANESTHESIA: local of 1% Xylocaine. INDICATIONS FOR PROCEDURE: The patient is a 33-year-old woman with type 1 diabetes mellitus who presented with diabetic ketoacidosis. The nurses have been unable to achieve a stable IV access and she is in need of frequent blood sampling. I have been asked to place a central venous line to accomplished both issues. OPERATIVE PROCEDURE: The patient was placed supine in the bed. She was then tilted into a Trendelenburg position. The neck was inspected with the ultrasound and the carotid artery and internal jugular vein were both clearly identified. A steeper Trendelenburg provided for greater expansion of the internal jugular vein. The area was prepped and draped sterilely. The ultrasound probe was also draped sterilely and used to inspect the neck now that the patient had been draped. The location of the internal jugular was identified. Local anesthesia was achieved with 1% Xylocaine. An 18 gauge needle was inserted into the skin and then using ultrasound guidance this was directed into the vein without difficulty on the first pass. Blood aspirated easily. The guidewire was inserted. The needle was removed. A small skin luciano was made at the wire insertion site and the dilator was passed and removed. The triple-lumen catheter which had previously been flushed with saline was then inserted over the guidewire to approximately 14 cm. The catheter was then backed out to approximately 12 cm at the skin surface. The suture wing was attached. Blood aspirated from all ports and these were flushed with saline. The suture wing was sutured to the skin with silk sutures. The site was dressed with a chlorhexidine gluconate occlusive dressing. The patient tolerated the procedure well without apparent problem problems. A portable chest x-ray was obtained immediately after the procedure which showed good positioning of the catheter with no evidence of pneumothorax. The patient tolerated this well.
== END 2019-10-13 12:16 | disposition home or self-care (01) | DRG 420 ==
LOC: M ED 18:28 → M ED INP 22:38 → M ICU 10-11 00:10
PROVIDERS: ADMIT Internal Medicine; ATTEND Internal Medicine
PROC: 02HV33Z Insertion of Infusion Device into Superior Vena Cava, Percutaneous Approach (ICD-10-PCS; principal; 2019-10-11)
DX: E10.10 Type 1 diabetes mellitus with ketoacidosis without coma (principal); N17.9 Acute kidney failure, unspecified; E78.5 Hyperlipidemia, unspecified; Z79.4 Long term (current) use of insulin; Z79.899 Other long term (current) drug therapy; D72.829 Elevated white blood cell count, unspecified; Z91.14 Patient's other noncompliance with medication regimen

== ENCOUNTER → 2020-03-18 | Outpatient (REF) | payer OTHER ==
[~2020-03-18] MED LIST changes: +LISI-542 PO; +OMEP1CAP73 PO; -OMEP20CA4 PO; -SUCR10SS PO; +SUCR1ORA2 PO
[2020-03-18 12:06] LABS: BASO % 0.8 % (0.0-1.0); EOS # 0.1 10^3/uL (0.0-0.5); HEMATOCRIT 40.1 % (36.0-47.0); HEMOGLOBIN 13.5 g/dl (12.0-15.5); LYMPH # 1.5 10^3/uL (1.5-5.0); LYMPH % 37.6 % (24.0-44.0); MEAN CORPUSCULAR HEMOGLOBIN 29.1 pg (27.0-33.0); MEAN CORPUSCULAR HGB CONC 33.7 g/dl (32.0-36.5); MEAN CORPUSCULAR VOLUME 86.4 fl (80.0-96.0); MONO # 0.2 10^3/uL (0.0-0.8); MONO % 5.9 % (0.0-5.0); NEUTROPHILS # 2.1 10^3/uL (1.5-8.5); NEUTROPHILS % 53.7 % (36.0-66.0); PLATELET COUNT, AUTOMATED 222 10^3/uL (150-450); RED BLOOD COUNT 4.64 10^6/uL (4.00-5.40); WHITE BLOOD COUNT 3.9 10^3/uL (4.0-10.0)
[2020-03-18 12:34] LABS: ALBUMIN 3.1 GM/DL (3.2-5.2); ALT/SGPT 23 U/L (12-78); BILIRUBIN,TOTAL 0.4 MG/DL (0.2-1.0); BLOOD UREA NITROGEN 22 MG/DL (7-18); CALCIUM LEVEL 9.9 MG/DL (8.5-10.1); CARBON DIOXIDE LEVEL 23 MEQ/L (21-32); CHLORIDE LEVEL 100 MEQ/L (98-107); CHOLESTEROL LEVEL 334 MG/DL (<200); CHOLESTEROL RISK RATIO 9.542 (<5); GLOMERULAR FILTRATION RATE > 60.0 (>60); GLUCOSE, FASTING 430 MG/DL (70-100); HDL CHOLESTEROL 35 MG/DL (>40); NON-HDL-C 299 MG/DL; POTASSIUM SERUM 4.2 MEQ/L (3.5-5.1); SODIUM LEVEL 134 MEQ/L (136-145); TOTAL 25(OH) VITAMIN D 17.3 NG/ML (30.0-100.0); TOTAL PROTEIN 7.3 GM/DL (6.4-8.2); TRIGLYCERIDES LEVEL 634 MG/DL (<150)
== END ==
LOC: M LAB REF 11:08
PROVIDERS: ATTEND Nurse Practitioner Family
DX: E78.5 Hyperlipidemia, unspecified (principal); Z13.9 Encounter for screening, unspecified; E10.9 Type 1 diabetes mellitus without complications; E78.70 Disorder of bile acid and cholesterol metabolism, unspecified; E66.3 Overweight

== ENCOUNTER 2020-05-06 12:19 | Emergency (ER) | payer OTHER ==
[~2020-05-06] VITALS: Ht 162.6 cm; Wt 71.1 kg
[2020-05-06] MEDS ORDERED: LISI10TA4 PO (12:27)
[2020-05-06] MEDS ORDERED: VITA1CAP25 PO (12:27)
[2020-05-06] MEDS ORDERED: ATOR40TA75 PO (12:27)
[2020-05-06] MEDS ORDERED: NS 1,000 ML IV ONE (12:45)
[2020-05-06 14:29] LABS: VENOUS BASE EXCESS -7.5 (-2.0-2.0); VENOUS HCO3 17.4 MEQ/L (23.0-27.0); VENOUS O2 SATURATION 96.1 % (60.0-80.0); VENOUS PARTIAL PRESSURE CO2 33.7 mmHg (38.0-50.0); VENOUS PARTIAL PRESSURE O2 81.1 mmHg (30.0-50.0); VENOUS PH 7.331 UNITS (7.330-7.430); VENOUS STANDARD HCO3 18.4 MEQ/L; VENOUS TOTAL CO2 18.4 MEQ/L (24.0-28.0)
[2020-05-06] MEDS ORDERED: ONDANSETRON 4 MG ORAL DISINTEGRATING TAB PO ONE (14:30)
[2020-05-06 14:42] LABS: BASO % 0.4 % (0.0-1.0); HEMATOCRIT 37.8 % (36.0-47.0); HEMOGLOBIN 13.2 g/dl (12.0-15.5); LYMPH # 0.9 10^3/uL (1.5-5.0); LYMPH % 19.1 % (24.0-44.0); MEAN CORPUSCULAR HEMOGLOBIN 30.2 pg (27.0-33.0); MEAN CORPUSCULAR HGB CONC 34.9 g/dl (32.0-36.5); MEAN CORPUSCULAR VOLUME 86.5 fl (80.0-96.0); MONO # 0.3 10^3/uL (0.0-0.8); MONO % 6.2 % (0.0-5.0); NEUTROPHILS # 3.6 10^3/uL (1.5-8.5); NEUTROPHILS % 74.1 % (36.0-66.0); PLATELET COUNT, AUTOMATED 230 10^3/uL (150-450); RED BLOOD COUNT 4.37 10^6/uL (4.00-5.40); WHITE BLOOD COUNT 4.8 10^3/uL (4.0-10.0)
[2020-05-06 14:57] LABS: ALBUMIN 3.5 GM/DL (3.2-5.2); ALT/SGPT 22 U/L (12-78); BILIRUBIN,DIRECT 0.1 MG/DL (0.0-0.2); BILIRUBIN,TOTAL 0.4 MG/DL (0.2-1.0); BLOOD UREA NITROGEN 15 MG/DL (7-18); CALCIUM LEVEL 9.8 MG/DL (8.5-10.1); CARBON DIOXIDE LEVEL 20 MEQ/L (21-32); CHLORIDE LEVEL 110 MEQ/L (98-107); CREATININE FOR GFR 1.43 MG/DL (0.55-1.30); GLOMERULAR FILTRATION RATE 45.3 (>60); GLUCOSE, FASTING 173 MG/DL (70-100); LIPASE 52 U/L (73-393); POTASSIUM SERUM 3.8 MEQ/L (3.5-5.1); SODIUM LEVEL 141 MEQ/L (136-145); TOTAL PROTEIN 7.8 GM/DL (6.4-8.2)
[2020-05-06 15:19] LABS: HCG, SERUM QUALITATIVE NEGATIVE (NEGATIVE)
[2020-05-06 15:26] LABS: ACETONE/KETONE 34.74 MG/DL (<2.81)
[2020-05-06 17:06] VITALS: BP 140/93
[2020-05-06] MEDS ORDERED: ZOFR4TAB16 PO (17:07)
--- NOTE | 2020-05-07 01:09 | REP ---
CT ABDOMEN AND PELVIS WITHOUT CONTRAST: CT abdomen and pelvis performed without oral or IV contrast. Sagittal and coronal reconstruction images are performed. Comparison made with prior CT 05/20/2018. Visualized lung bases are clear. Liver, spleen, adrenals, pancreas, and kidneys are grossly unremarkable. There is no renal or ureteral calculus and no hydroureteronephrosis. There is no abdominal aortic aneurysm. There is no adenopathy. There is no free air or free fluid. There is a moderate hiatal hernia. No bowel wall thickening is seen. The appendix is normal. There is no pelvic mass. Urinary bladder is mildly distended and grossly unremarkable. IMPRESSION: Moderate sized hiatal hernia. No acute findings in the abdomen or pelvis. Electronically Signed by Fitz Alicea MD 05/07/2020 04:59 P
[2020-05-07] MEDS ORDERED: TRES1INJ2 SC (21:49)
[2020-05-07] MEDS ORDERED: VITA500038 PO (21:49)
[2020-05-07] MEDS ORDERED: VITMTA PO (21:49)
[2020-05-07] MEDS ORDERED: ONDA-83 PO (21:49)
== END 2020-05-06 17:18 | disposition home or self-care (01) ==
LOC: M ED 12:19
DX: R11.2 Nausea with vomiting, unspecified (principal); E11.9 Type 2 diabetes mellitus without complications; Z79.4 Long term (current) use of insulin
CPT/HCPCS: 36415; 74176; 80048; 80076; 82010; 82803; 83690; 84703; 85025; 99283; Q0162

== ENCOUNTER 2020-05-07 15:57 | Inpatient (IN) | payer OTHER ==
[~2020-05-07] VITALS: Ht 162.6 cm; Wt 77.7 kg
[~2020-05-07 15:57] MED LIST changes: +ATOR40TA75 PO; -LISI-542 PO; +LISI-898 PO; +LISI10TA22 PO; +METH-1164 PO; -METH1TAB40 PO; +VITA1CAP25 PO
[2020-05-07] MEDS ORDERED: NS 1,000 ML IV ONE (16:45)
[2020-05-07] MEDS ORDERED: METOCLOPRAMIDE INJ 10MG/2ML VIAL (J2765 PER 1) IV ONE (16:45)
[2020-05-07 16:56] LABS: VENOUS BASE EXCESS -4.8 (-2.0-2.0); VENOUS HCO3 21.9 MEQ/L (23.0-27.0); VENOUS O2 SATURATION 79.7 % (60.0-80.0); VENOUS PARTIAL PRESSURE CO2 46.6 mmHg (38.0-50.0); VENOUS PARTIAL PRESSURE O2 45.7 mmHg (30.0-50.0); VENOUS PH 7.289 UNITS (7.330-7.430); VENOUS STANDARD HCO3 20.1 MEQ/L; VENOUS TOTAL CO2 23.3 MEQ/L (24.0-28.0)
[2020-05-07 17:00] LABS: BASO % 0.8 % (0.0-1.0); EOS % 0.3 % (0.0-3.0); HEMATOCRIT 40.6 % (36.0-47.0); HEMOGLOBIN 13.7 g/dl (12.0-15.5); LYMPH % 27.2 % (24.0-44.0); MEAN CORPUSCULAR HEMOGLOBIN 29.7 pg (27.0-33.0); MEAN CORPUSCULAR HGB CONC 33.7 g/dl (32.0-36.5); MEAN CORPUSCULAR VOLUME 87.9 fl (80.0-96.0); MONO # 0.3 10^3/uL (0.0-0.8); MONO % 8.2 % (0.0-5.0); NEUTROPHILS # 2.3 10^3/uL (1.5-8.5); PLATELET COUNT, AUTOMATED 247 10^3/uL (150-450); RED BLOOD COUNT 4.62 10^6/uL (4.00-5.40); WHITE BLOOD COUNT 3.6 10^3/uL (4.0-10.0)
[2020-05-07 17:29] LABS: ALBUMIN 3.6 GM/DL (3.2-5.2); BILIRUBIN,TOTAL 0.5 MG/DL (0.2-1.0); CREATININE FOR GFR 1.39 MG/DL (0.55-1.30); GLOMERULAR FILTRATION RATE 46.8 (>60); POTASSIUM SERUM 3.7 MEQ/L (3.5-5.1); TOTAL PROTEIN 8.5 GM/DL (6.4-8.2)
--- NOTE | 2020-05-07 17:33 | REPVR ---
PROCEDURE INFORMATION: Exam: US Retroperitoneal Limited, Kidneys Exam date and time: 05/07/2020 5:16 PM Age: 34 years old Clinical indication: Abdominal pain; Flank; Left; Additional info: Left flank pain; R/O pyelo TECHNIQUE: Imaging protocol: Real-time ultrasound of the retroperitoneum with image documentation. Examination was focused on the kidneys. COMPARISON: CT ABD PELVIS W/O CONTRAST 05/06/2020 3:42 PM FINDINGS: Right kidney: Right kidney measures 11.1 x 5.6 x 4.3 cm. 8 x 6 x 7 mm nonshadowing hyperechoic focus demonstrated in the posterior cortex at the upper pole of the right kidney. Left kidney: Left kidney measures 11.2 x 5 x 6.2 cm. Bladder: The urinary bladder unremarkable. Bilateral ureteral jets demonstrated. 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 Otherwise unremarkable. Electronically signed by: Bhavik Carrasco On 05/07/2020 17:33:30 PM
[2020-05-07] MEDS ORDERED: ONDANSETRON 4MG/2ML VIAL IV ONE (19:45)
[2020-05-07] MEDS ORDERED: NS 500 ML IV ONE (19:45)
[2020-05-07 20:50] LABS: VENOUS BASE EXCESS -7.2 (-2.0-2.0); VENOUS HCO3 19.7 MEQ/L (23.0-27.0); VENOUS O2 SATURATION 89.6 % (60.0-80.0); VENOUS PARTIAL PRESSURE CO2 44.9 mmHg (38.0-50.0); VENOUS PARTIAL PRESSURE O2 61.3 mmHg (30.0-50.0); VENOUS PH 7.261 UNITS (7.330-7.430); VENOUS STANDARD HCO3 18.5 MEQ/L; VENOUS TOTAL CO2 21.1 MEQ/L (24.0-28.0)
[2020-05-07] MEDS ORDERED: LEVEMIR (INSULIN DETEMIR) 1 UNITS/0.01ML SC SCH (21:00)
[2020-05-07 21:31] LABS: ACETONE/KETONE 39.06 MG/DL (<2.81); MAGNESIUM LEVEL 2.3 MG/DL (1.8-2.4); PHOSPHORUS LEVEL 2.4 MG/DL (2.5-4.9)
[2020-05-07] MEDS ORDERED: NS 1,000 ML IV SCH (21:38)
[2020-05-07] MEDS ORDERED: ACETAMINOPHEN TAB 650MG DOSE (2X325MG) PO PRN (21:45)
[2020-05-07] MEDS ORDERED: VITMTA PO (21:49)
[2020-05-07] MEDS ORDERED: TRES1INJ2 SC (21:49)
[2020-05-07] MEDS ORDERED: VITA500038 PO (21:49)
[2020-05-07] MEDS ORDERED: ONDA-83 PO (21:49)
[2020-05-07] MEDS ORDERED: GLUCOSE 4GM CHEW TABLET PO PRN (22:00)
[2020-05-07] MEDS ORDERED: GLUCAGON INJ 1MG VIAL SC PRN (22:00)
[2020-05-07] MEDS ORDERED: ONDANSETRON 4 MG TAB PO PRN (22:00)
[2020-05-07] MEDS ORDERED: DEXTROSE 50% 50 ML SYRINGE IV PRN (22:00)
[2020-05-07] MEDS ORDERED: LR 1,000 ML IV SCH (22:15)
--- NOTE | 2020-05-07 22:42 | HPEPDOC ---
General Date of Admission May 07, 2020 at 21:38 Date of Service: May 07, 2020 Chief Complaint The patient is a 34-year-old female admitted with a reason for visit of Metabolic Acidosis,Sai,Dehydration,Diarrhea,Vomiti. Source: Patient Exam Limitations: No limitations Timing/Duration: Day(s) Severity: Moderate History of Present Illness Patient is 34 years old female with past medical history of type 1 diabetes, dyslipidemia, esophagitis/gastritis presented hospital with nausea and vomiting. Patient stated that for past 3-4 days she has been having multiple episodes of vomiting associated with diarrhea. Patient stated that she had 7-8 loose stool bowel movements and multiple episodes of vomiting. She also states that she noticed black stool. In ER patient was found to have on VBG pH 7.2, bicarbonate 19.7, potassium 3.7, glucose level 134, serum osmolality 309, beta hydroxybutyrate 9, urine was positive for ketones. Home Medications Scheduled Atorvastatin Calcium (Atorvastatin Calcium) 40 Mg Tablet, 40 MG PO QHS, (Reported) Cholecalciferol (Vitamin D3) (Vitamin D3) 1,250 Mcg Capsule, 1,250 MCG PO QWEEK, (Reported) MONDAYS Cholecalciferol (Vitamin D3) (Vitamin D3) 125 Mcg Tablet, 125 MCG PO DAILY, (Reported) Insulin Degludec (Tresiba Flextouch U-100) 100 Unit/1 Ml Insuln.pen, 1 DOSE SC BID, (Reported) PATIENT ALWAYS DOES 34 UNITS TOTAL DAILY SPLIT BETWEEN TWO DOSES, STATES SHE ADJUSTS UNITS BASED ON SUGAR LEVEL IN THE AM. SOMETIMES SHE DOES 20 UNITS IN THE MORNING AND 14 UNITS AT NIGHT DEPENDING ON READINGS. Insulin Human Lispro (Novolog) 100 U/Ml Inj, 1 DOSE SC ACHS, (Reported) PER SLIDING SCALE Lisinopril (Lisinopril) 10 Mg Tablet, 10 MG PO DAILY, (Reported) Multivitamins (Thera M Plus Tablet) 1 Each Tablet, 1 TAB PO DAILY, (Reported) Scheduled PRN Cyclosporine (Restasis) 0.05 % Emu, 1 DROP OU BID PRN for DRY EYES, (Reported) PATIENT STATES SHE ONLY USES WHEN NEEDED. Ondansetron HCl (Ondansetron HCl) 4 Mg Tablet, 4 MG PO Q6H PRN for NAUSEA OR VOMITING, (Reported) Allergies Coded Allergies: TREES (Verified Allergy, Unknown, 10/10/19) mold (Verified Allergy, Unknown, 10/10/19) Past Medical History Medical History 1. Type 1 diabetes. 2. Dyslipidemia 3. Esophagitis/gastritis. 4. Status post LEEP 5 endometriosis Surgical History 4. Status post LEEP Family History Father had depression, and anxiety. Mother had diabetes Social History * Smoker: Denies Alcohol: Denies Drugs: denies A-FIB/CHADSVASC A-FIB History Current/History of A-Fib/PAF?: No Current PO Anticoag Therapy: No Review of Systems Constitutional: Denies: Chills Eyes: Denies: Pain ENT: Denies: Head Aches Skin: Denies: Rash Pulmonary: Denies: Dyspnea Cardiovascular: Denies: Chest Pain Gastrointestinal: Reports: Nausea, Vomiting, Diarrhea Genitourinary: Denies: Dysuria Hematologic: Denies: Bruising Endocrine: Denies: Polydipsia, Polyphagia Musculoskeletal: Reports: Other Symptoms; Denies: Neck Pain Neurological: Denies: Weakness Psych: Reports: Mood Normal Physical Examination General Exam: Positive: Alert, Cooperative Eye Exam: Positive: PERRLA ENT Exam: Positive: Atraumatic Neck Exam: Positive: Supple; Negative: JVD Chest Exam: Positive: Clear to auscultation Heart Exam: Positive: Rate Normal Telemetry: Positive: No significant arrhythmia Abdomen Exam: Positive: Normal bowel sounds Extremity Exam: Negative: Clubbing, Cyanosis Skin Exam: Positive: Nl turgor and temperature; Negative: Breakdown Neuro Exam: Positive: Normal Gait, Strength at 5/5 X4 ext Psych Exam: Positive: Mental status NL Vital Signs Vital Signs Date Time Temp Pulse Resp B/P (MAP) Pulse Ox O2 Delivery O2 Flow Rate FiO2 05/07/20 20:33 89 18 124/74 (91) 100 Room Air 05/07/20 15:58 98.1 Laboratory Data Labs 24H Laboratory Tests 2 05/07/20 16:43: Immature Granulocyte % (Auto) 0.5, Neutrophils (%) (Auto) 63.0, Lymphocytes (%) (Auto) 27.2, Monocytes (%) (Auto) 8.2H, Eosinophils (%) (Auto) 0.3, Basophils (%) (Auto) 0.8, Neutrophils # (Auto) 2.3, Lymphocytes # (Auto) 1.0L, Monocytes # (Auto) 0.3, Eosinophils # (Auto) 0.0, Basophils # (Auto) 0.0, Nucleated Red Blood Cells % (auto) 0.0, Blood Gas Bicarbonate Standard 20.1, Venous Blood pH 7.289L, Venous Blood Partial Pressure CO2 46.6, Venous Blood Partial Pressure O2 45.7, Venous Blood Total Carbon Dioxide 23.3L, Venous Blood HCO3 21.9L, Venous Blood Oxygen Saturation 79.7, Venous Blood Base Excess -4.8L, Anion Gap 11, Glomerular Filtration Rate 46.8L, Osmolality 309H, Calcium Level 10.0, Phosphorus Level 2.4L, Magnesium Level 2.3, Total Bilirubin 0.5, Aspartate Amino Transf (AST/SGOT) 16, Alanine Aminotransferase (ALT/SGPT) 24, Alkaline Phosphatase 107, Total Protein 8.5H, Albumin 3.6, Albumin/Globulin Ratio 0.7L, B-Hydroxybutyrate 39.06H 05/07/20 17:07: POC Glucose (Misc Panel) 136H, POC Sodium (Misc Panel) 141, POC Potassium (Misc Panel) 4.0, POC Chloride (Misc Panel) 106, POC Total CO2 (Misc Panel) 21.0L, POC Blood Urea Nitrogen (Misc Panel 14, POC Ionized Calcium (Misc Panel) 5.1, POC Creatinine (Misc Panel) 0.8, POC Hematocrit (Misc Panel) 21.0L 05/07/20 18:06: Urine Color YELLOW, Urine Appearance HAZY, Urine pH 6.0, Urine Specific [place] 1.024, Urine Protein 3+H, Urine Glucose (UA) 3+H, Urine Ketones 2+H, Urine Blood 2+H, Urine Nitrite NEGATIVE, Urine Bilirubin NEGATIVE, Urine Urobilinogen 0.2, Urine Leukocyte Esterase NEGATIVE, Urine WBC (Auto) 3, Urine RBC (Auto) 6H, Urine Hyaline Casts (Auto) 0, Urine Bacteria (Auto) NEGATIVE, Urine Squamous Epithelial Cells 2, Urine Sperm (Auto) 05/07/20 20:45: Blood Gas Bicarbonate Standard 18.5, Venous Blood pH 7.261L, Venous Blood Partial Pressure CO2 44.9, Venous Blood Partial Pressure O2 61.3H, Venous Blood Total Carbon Dioxide 21.1L, Venous Blood HCO3 19.7L, Venous Blood Oxygen Saturation 89.6H, Venous Blood Base Excess -7.2L 05/07/20 20:49: POC Glucose (Misc Panel) 153H, POC Sodium (Misc Panel) 143, POC Potassium (Misc Panel) 3.8, POC Chloride (Misc Panel) 108, POC Total CO2 (Misc Panel) 20.0L, POC Blood Urea Nitrogen (Misc Panel 11, POC Ionized Calcium (Misc Panel) 5.1, POC Creatinine (Misc Panel) 0.7, POC Hematocrit (Misc Panel) 38.0 CBC/BMP Laboratory Tests 05/07/20 16:43 Assessment/Plan Patient is 34 years old female with past medical history of type 1 diabetes, dyslipidemia, esophagitis/gastritis presented hospital with nausea and vomiting. Patient stated that for past 3-4 days she has been having multiple episodes of vomiting associated with diarrhea. Patient stated that she had 7-8 loose stool bowel movements and multiple episodes of vomiting. She also states that she noticed black stool. In ER patient was found to have on VBG pH 7.2, bicarbonate 19.7, potassium 3.7, glucose level 134, serum osmolality 309, beta hydroxybutyrate 9, urine was positive for ketones. Patient developed non-anion gap metabolic keto acidosis Problems (1) Metabolic acidosis Status: Acute Problem Text: Patient developed non-inion gap metabolic keto acidosis Patient had pH of 7,2, bicarbonate of 19, serum b-hydroxybutyrate of 39 positive ketones in the urine I ll start Insulin drip BMP every 4 hours Potassium every 2 hours We'll check ABG We'll check urine for ketones in the morning and serum for b-hydroxybutyrate (2) Diabetes Status: Chronic Problem Text: Patient will be transferred to ICU Insulin drip We'll continue to monitor BMP (3) Nausea vomiting and diarrhea Status: Acute Problem Text: Nausea, vomiting and diarrhea could be manifestation of euglycemic ketoacidosis Zofran when necessary We'll check stool for occult blood and infection (4) SAI (acute kidney injury) Status: Acute Problem Text: Baseline creatinine around 0.8 Lisinopril on hold Continue hydration Continue to monitor Plan / VTE VTE Prophylaxis Ordered?: Yes MACK NUNN DO May 07, 2020 22:42
[2020-05-07] MEDS ORDERED: KCL 20MEQ IN 100ML SWI (KRUN) 20 MEQ in IV 1 EA IV ONE ×2 (22:45)
[2020-05-07] MEDS ORDERED: SODIUM BICARBONATE 75 MEQ in NS 0.45% 1,000 ML IV SCH (22:45)
[2020-05-07] MEDS: KCL 20MEQ IN D5/0.45NS 1000ML 1,000 ML IV SCH (22:45)
[2020-05-07 23:31] LABS: ALBUMIN 2.9 GM/DL (3.2-5.2); ALT/SGPT 19 U/L (12-78); BILIRUBIN,TOTAL 0.3 MG/DL (0.2-1.0); BLOOD UREA NITROGEN 12 MG/DL (7-18); CALCIUM LEVEL 8.8 MG/DL (8.5-10.1); CARBON DIOXIDE LEVEL 20 MEQ/L (21-32); CHLORIDE LEVEL 112 MEQ/L (98-107); CREATININE FOR GFR 1.08 MG/DL (0.55-1.30); GLOMERULAR FILTRATION RATE > 60.0 (>60); GLUCOSE, FASTING 150 MG/DL (70-100); POTASSIUM SERUM 3.7 MEQ/L (3.5-5.1); SODIUM LEVEL 145 MEQ/L (136-145); TOTAL PROTEIN 6.7 GM/DL (6.4-8.2)
[2020-05-07] MEDS ORDERED: INSULIN REGULAR IN 0.9 % NACL 100 UNIT in IV 1 EA IV SCH ×2 (23:45)
[2020-05-08] VITALS (8 sets, daily range): BP systolic 127–146; BP diastolic 83–100
[2020-05-08] MEDS: ATORVASTATIN 20 MG TAB PO SCH ×2 (01:30→20:23)
[2020-05-08] MEDS: KCL 10MEQ/100ML SWI (KRUN) 100 ML IV SCH ×2 (01:31→03:31)
[2020-05-08 01:51] LABS: POTASSIUM RANDOM URINE 19.9 MEQ/L
[2020-05-08 03:13] LABS: CALCIUM LEVEL 8.8 MG/DL (8.5-10.1); CREATININE FOR GFR 1.13 MG/DL (0.55-1.30); GLOMERULAR FILTRATION RATE 59.4 (>60); POTASSIUM SERUM 3.4 MEQ/L (3.5-5.1)
[2020-05-08] MEDS: INSULIN IV RATE CHANGE DOCUMENTATION ML/HR XX SCH ×3 (03:44→05:56)
[2020-05-08] MEDS ORDERED: POTASSIUM CHLORIDE 10 MEQ SR TABLET PO ONE (04:45)
[2020-05-08 06:07] LABS: ABG HCO3 21.5 MEQ/L (22.0-26.0); ABG O2 SATURATION 97.1 % (95.0-99.0); ABG PARTIAL PRESSURE CO2 36.4 mmHg (35.0-45.0); ABG STANDARD HCO3 21.9 MEQ/L (22.0-26.0); ABG TOTAL CO2 22.6 MEQ/L (22.0-29.0); ABG pH (ARTERIAL) 7.389 UNITS (7.350-7.450)
[2020-05-08 06:55] LABS: HEMATOCRIT 32.2 % (36.0-47.0); HEMOGLOBIN 10.8 g/dl (12.0-15.5); MEAN CORPUSCULAR HEMOGLOBIN 29.4 pg (27.0-33.0); MEAN CORPUSCULAR HGB CONC 33.5 g/dl (32.0-36.5); MEAN CORPUSCULAR VOLUME 87.7 fl (80.0-96.0); PLATELET COUNT, AUTOMATED 184 10^3/uL (150-450); RED BLOOD COUNT 3.67 10^6/uL (4.00-5.40); WHITE BLOOD COUNT 3.2 10^3/uL (4.0-10.0)
[2020-05-08 07:17] LABS: ACETONE/KETONE 14.32 MG/DL (<2.81); BLOOD UREA NITROGEN 8 MG/DL (7-18); CALCIUM LEVEL 8.4 MG/DL (8.5-10.1); CARBON DIOXIDE LEVEL 23 MEQ/L (21-32); CHLORIDE LEVEL 111 MEQ/L (98-107); CREATININE FOR GFR 0.95 MG/DL (0.55-1.30); GLOMERULAR FILTRATION RATE > 60.0 (>60); GLUCOSE, FASTING 139 MG/DL (70-100); POTASSIUM SERUM 3.6 MEQ/L (3.5-5.1); SODIUM LEVEL 140 MEQ/L (136-145)
[2020-05-08] MEDS: KCL 20MEQ IN D5/0.45NS 1000ML 1,000 ML IV SCH (07:53)
[2020-05-08] MEDS ORDERED: ENTER DRUG NAME HERE (PATIENT'S OWN MED) SQ SCH (08:15)
[2020-05-08] MEDS ORDERED: GLUCOSE 4GM CHEW TABLET PO PRN (08:15)
[2020-05-08] MEDS ORDERED: GLUCAGON INJ 1MG VIAL SC PRN (08:15)
[2020-05-08] MEDS ORDERED: DEXTROSE 50% 50 ML SYRINGE IV PRN (08:15)
[2020-05-08] MEDS: LEVEMIR (INSULIN DETEMIR) 1 UNITS/0.01ML SC SCH ×2 (08:51→20:22)
[2020-05-08] MEDS: HumaLOG INSULIN (NovoLOG) PER UNIT SC SCH ×3 (08:59→18:10)
[2020-05-08] MEDS ORDERED: HEPARIN SOD (PORCINE) 5000UNITS/ML 1ML VIAL/SYRINGE SC SCH (09:00)
--- NOTE | 2020-05-08 10:09 | IPNPDOC ---
Subjective Date Seen The patient was seen on 05/08/20. Subjective Chief Complaint/HPI Patient feeling much better, had no BMs once she is been in the hospital. When inquired again. She denies any bleeding out black stools per rectum. Patient offers no new complaints at the present time General: Denies: ROS Unobtainable, Chills, Night Sweats, Fatigue, Malaise, Normal Appetite, Other Symptoms Constitutional: Denies: Chills, Fever, Malaise, Night Sweats, Weakness, Fatigue, Weight Loss, Lethargy, Other Eyes: Denies: Pain, Vision change, Conjunctivae inflammation, Eyelid inflammation, Redness, Other ENT: Denies: Head Aches, Ear Pain, Dysphagia, Sinus Congestion, Post Nasal Drip, Sore Throat, Epistaxis, Other Symptoms Skin: Denies: Rash, Lesions, Jaundice, Bruising, Itching, Dry, Breakdown, Nail Changes, Other Cardiovascular: Denies: Chest Pain, Palpitations, Orthopnea, Paroxysmal Noc. Dyspnea, Edema, Lt Headedness, Other Symptoms Gastrointestinal: Denies: Nausea, Vomiting, Abdominal Pain, Diarrhea, Constipation, Melena, Hematochezia, Other Symptoms Musculoskeletal: Denies: Neck Pain, Back Pain, Shoulder Pain, Arm Pain, Hand Pain, Leg Pain, Foot Pain, Joint Pain, Muscle Pain, Spasms, Other Symptoms Neurological: Denies: Weakness, Numbness, Incoordination, Change in speech, Confusion, Seizures, Other Symptoms Psych: Denies: Mood Normal, Anxiety, Depression, Memory Issues, Thoughts of Self Harm, Anger, Thoughts of Harming Other, Other Psych Objective Physical Examination General Exam: Positive: Alert, Cooperative Eye Exam: Positive: PERRLA ENT Exam: Positive: Atraumatic Neck Exam: Positive: Supple Chest Exam: Positive: Clear to auscultation, Normal air movement Heart Exam: Positive: Rate Normal Abdomen Exam: Positive: Normal bowel sounds Skin Exam: Positive: Nl turgor and temperature Neuro Exam: Positive: Normal Gait, Strength at 5/5 X4 ext Psych Exam: Positive: Mental status NL Assessment /Plan Problems (1) DKA (diabetic ketoacidosis) Onset Date: 05/08/2020 Status: Acute Problem Text: Patient's fingerstick blood sugars are between 170 and 110 She is completely asymptomatic. No nausea, vomiting She is currently on insulin drip 1 unit per hour Will DC insulin drip started her fingerstick blood sugar every before meals and at bedtime Will continue her home as well insulin dosage, pharmacy was called to adjust dosage to insulin available inpatient Start diabetic diet DC IV fluids BMP every 8 hours for 24 hours Supplement potassium. If needed Out of bed as tolerated Possible discharge in a.m. (2) Hypokalemia Status: Resolved Problem Text: Secondary to DKA Corrected BMP every 8 hours (3) Metabolic acidosis Status: Acute Problem Text: Secondary to DKA-resolved Her electrolytes are within normal range now Her beta hydroxy butyrate is 14, now Monitor electrolytes (4) Hypercholesteremia Status: Chronic (5) CLYDE (acute kidney injury) Status: Acute Problem Text: Secondary to DKA-resolved with IV hydration Patient received IV fluids And function are within normal limits. Plan/VTE VTE Prophylaxis Ordered?: Yes VS, I&O, 24H, Fishbone Vital Signs/I&O Vital Signs Date Time Temp Pulse Resp B/P (MAP) Pulse Ox O2 Delivery O2 Flow Rate FiO2 05/08/20 08:00 97.9 85 18 139/89 (106) 99 Room Air I&O- Last 24 Hours up to 6 AM 05/08/20 06:00 Intake Total 2452 ml Balance 2452 ml Laboratory Data 24H LABS Laboratory Tests 2 05/07/20 16:09: Bedside Glucose (Misc Panel) 127H 05/07/20 16:43: Immature Granulocyte % (Auto) 0.5, Neutrophils (%) (Auto) 63.0, Lymphocytes (%) (Auto) 27.2, Monocytes (%) (Auto) 8.2H, Eosinophils (%) (Auto) 0.3, Basophils (%) (Auto) 0.8, Neutrophils # (Auto) 2.3, Lymphocytes # (Auto) 1.0L, Monocytes # (Auto) 0.3, Eosinophils # (Auto) 0.0, Basophils # (Auto) 0.0, Nucleated Red Blood Cells % (auto) 0.0, Blood Gas Bicarbonate Standard 20.1, Venous Blood pH 7.289L, Venous Blood Partial Pressure CO2 46.6, Venous Blood Partial Pressure O2 45.7, Venous Blood Total Carbon Dioxide 23.3L, Venous Blood HCO3 21.9L, Venous Blood Oxygen Saturation 79.7, Venous Blood Base Excess -4.8L, Anion Gap 11, Glomerular Filtration Rate 46.8L, Osmolality 309H, Calcium Level 10.0, Phosphorus Level 2.4L, Magnesium Level 2.3, Total Bilirubin 0.5, Aspartate Amino Transf (AST/SGOT) 16, Alanine Aminotransferase (ALT/SGPT) 24, Alkaline Phosphatase 107, Total Protein 8.5H, Albumin 3.6, Albumin/Globulin Ratio 0.7L, B-Hydroxybutyrate 39.06H 05/07/20 17:07: POC Glucose (Misc Panel) 136H, POC Sodium (Misc Panel) 141, POC Potassium (Misc Panel) 4.0, POC Chloride (Misc Panel) 106, POC Total CO2 (Misc Panel) 21.0L, POC Blood Urea Nitrogen (Misc Panel 14, POC Ionized Calcium (Misc Panel) 5.1, POC Creatinine (Misc Panel) 0.8, POC Hematocrit (Misc Panel) 21.0L 05/07/20 18:06: Urine Color YELLOW, Urine Appearance HAZY, Urine pH 6.0, Urine Specific [place] 1.024, Urine Protein 3+H, Urine Glucose (UA) 3+H, Urine Ketones 2+H, Urine Blood 2+H, Urine Nitrite NEGATIVE, Urine Bilirubin NEGATIVE, Urine Urobilinogen 0.2, Urine Leukocyte Esterase NEGATIVE, Urine WBC (Auto) 3, Urine RBC (Auto) 6H, Urine Hyaline Casts (Auto) 0, Urine Bacteria (Auto) NEGATIVE, Urine Squamous Epithelial Cells 2, Urine Sperm (Auto) , Urine Random Osmolality 668, Urine Random Sodium 13, Urine Random Potassium 19.9, Urine Random Chloride 51 05/07/20 20:45: Blood Gas Bicarbonate Standard 18.5, Venous Blood pH 7.261L, Venous Blood Partial Pressure CO2 44.9, Venous Blood Partial Pressure O2 61.3H, Venous Blood Total Carbon Dioxide 21.1L, Venous Blood HCO3 19.7L, Venous Blood Oxygen Saturation 89.6H, Venous Blood Base Excess -7.2L 05/07/20 20:49: POC Glucose (Misc Panel) 153H, POC Sodium (Misc Panel) 143, POC Potassium (Misc Panel) 3.8, POC Chloride (Misc Panel) 108, POC Total CO2 (Misc Panel) 20.0L, POC Blood Urea Nitrogen (Misc Panel 11, POC Ionized Calcium (Misc Panel) 5.1, POC Creatinine (Misc Panel) 0.7, POC Hematocrit (Misc Panel) 38.0 05/07/20 22:32: Anion Gap 13, Glomerular Filtration Rate > 60.0, Lactic Acid Level 0.6, Calcium Level 8.8, Total Bilirubin 0.3, Aspartate Amino Transf (AST/SGOT) 15, Alanine Aminotransferase (ALT/SGPT) 19, Alkaline Phosphatase 84, Total Protein 6.7#, Albumin 2.9L, Albumin/Globulin Ratio 0.8L, Thyroid Stimulating Hormone (TSH) 1.180 05/08/20 00:36: Bedside Glucose (Misc Panel) 151H 05/08/20 01:41: Bedside Glucose (Misc Panel) 172H 05/08/20 02:25: Bedside Glucose (Misc Panel) 167H 05/08/20 02:26: Anion Gap 9, Glomerular Filtration Rate 59.4L, Calcium Level 8.8 05/08/20 03:43: Bedside Glucose (Misc Panel) 144H 05/08/20 04:48: Bedside Glucose (Misc Panel) 153H 05/08/20 05:38: Blood Gas Bicarbonate Standard 21.9L, Arterial Blood pH 7.389, Arterial Blood Partial Pressure CO2 36.4, Arterial Blood Partial Pressure O2 93.0, Arterial Blood Total CO2 22.6, Arterial Blood HCO3 21.5L, Arterial Blood Base Excess - 3.0L, Arterial Blood Oxygen Saturation 97.1 05/08/20 05:50: Bedside Glucose (Misc Panel) 143H 05/08/20 06:29: Bedside Glucose (Misc Panel) 142H 05/08/20 06:31: Nucleated Red Blood Cells % (auto) 0.0, Anion Gap 6L, Glomerular Filtration Rate > 60.0, Calcium Level 8.4L, B-Hydroxybutyrate 14.32H 05/08/20 07:38: Bedside Glucose (Misc Panel) 145H 05/08/20 08:50: Bedside Glucose (Misc Panel) 148H CBC/BMP Laboratory Tests 05/07/20 16:43 05/07/20 22:32 05/08/20 00:27 05/08/20 02:26 05/08/20 04:49 05/08/20 06:31 Microbiology Microbiology 05/07/20 Blood Culture, Received Pending REESE OBANDO MD May 08, 2020 10:09
[2020-05-08] MEDS: MULTIVITAMINS/MINERALS THERAP 1 TAB PO SCH (13:04)
[2020-05-08 15:01] LABS: CALCIUM LEVEL 9.2 MG/DL (8.5-10.1); CREATININE FOR GFR 1.23 MG/DL (0.55-1.30); GLOMERULAR FILTRATION RATE 53.9 (>60); POTASSIUM SERUM 3.6 MEQ/L (3.5-5.1)
[2020-05-08] MEDS ORDERED: HumaLOG INSULIN (NovoLOG) PER UNIT SC SCH ×2 (21:00)
[2020-05-08 23:04] LABS: BLOOD UREA NITROGEN 9 MG/DL (7-18); CALCIUM LEVEL 8.9 MG/DL (8.5-10.1); CARBON DIOXIDE LEVEL 24 MEQ/L (21-32); CHLORIDE LEVEL 112 MEQ/L (98-107); CREATININE FOR GFR 1.11 MG/DL (0.55-1.30); GLOMERULAR FILTRATION RATE > 60.0 (>60); GLUCOSE, FASTING 160 MG/DL (70-100); POTASSIUM SERUM 3.7 MEQ/L (3.5-5.1); SODIUM LEVEL 142 MEQ/L (136-145)
[2020-05-09 06:00] VITALS: BP 132/96
[2020-05-09 06:21] LABS: BASO % 1.1 % (0.0-1.0); EOS % 0.7 % (0.0-3.0); HEMATOCRIT 33.3 % (36.0-47.0); HEMOGLOBIN 11.2 g/dl (12.0-15.5); LYMPH # 1.4 10^3/uL (1.5-5.0); LYMPH % 48.9 % (24.0-44.0); MEAN CORPUSCULAR HEMOGLOBIN 30.2 pg (27.0-33.0); MEAN CORPUSCULAR HGB CONC 33.6 g/dl (32.0-36.5); MEAN CORPUSCULAR VOLUME 89.8 fl (80.0-96.0); MONO # 0.2 10^3/uL (0.0-0.8); MONO % 8.3 % (0.0-5.0); NEUTROPHILS # 1.1 10^3/uL (1.5-8.5); NEUTROPHILS % 40.6 % (36.0-66.0); PLATELET COUNT, AUTOMATED 176 10^3/uL (150-450); RED BLOOD COUNT 3.71 10^6/uL (4.00-5.40); WHITE BLOOD COUNT 2.8 10^3/uL (4.0-10.0)
[2020-05-09 06:43] LABS: ALBUMIN 2.4 GM/DL (3.2-5.2); ALT/SGPT 15 U/L (12-78); BILIRUBIN,TOTAL 0.4 MG/DL (0.2-1.0); BLOOD UREA NITROGEN 11 MG/DL (7-18); CALCIUM LEVEL 9.1 MG/DL (8.5-10.1); CARBON DIOXIDE LEVEL 27 MEQ/L (21-32); CHLORIDE LEVEL 112 MEQ/L (98-107); CREATININE FOR GFR 0.89 MG/DL (0.55-1.30); GLOMERULAR FILTRATION RATE > 60.0 (>60); GLUCOSE, FASTING 175 MG/DL (70-100); POTASSIUM SERUM 3.6 MEQ/L (3.5-5.1); SODIUM LEVEL 143 MEQ/L (136-145); TOTAL PROTEIN 5.8 GM/DL (6.4-8.2)
[2020-05-09] MEDS: MULTIVITAMINS/MINERALS THERAP 1 TAB PO SCH (08:28)
[2020-05-09] MEDS: HumaLOG INSULIN (NovoLOG) PER UNIT SC SCH (08:28)
[2020-05-09] MEDS: LEVEMIR (INSULIN DETEMIR) 1 UNITS/0.01ML SC SCH (08:29)
[2020-05-09 10:15] LABS: ACETONE/KETONE 1.32 MG/DL (<2.81)
--- NOTE | 2020-05-09 13:56 | DS.PDOC ---
Discharge Summary General Date of Admission May 07, 2020 at 21:38 Date of Discharge 05/09/20 Discharge Summary PROCEDURES PERFORMED DURING STAY: None. ADMITTING DIAGNOSES: 1. Diabetic ketoacidosis, metabolic acidosis. DISCHARGE DIAGNOSES: 1. Diabetic ketoacidosis, metabolic acidosis, acute kidney injury, dehydration, nausea, vomiting secondary to metabolic acidosis, hyperlipidemia. COMPLICATIONS/CHIEF COMPLAINT: Metabolic Acidosis,Sai,Dehydration,Diarrhea,Vomiti. HISTORY OF PRESENT ILLNESS: Patient is 34 years old female with past medical history of type 1 diabetes, dyslipidemia, esophagitis/gastritis presented hospital with nausea and vomiting. Patient stated that for past 3-4 days she has been having multiple episodes of vomiting associated with diarrhea. Patient stated that she had 7-8 loose stool bowel movements and multiple episodes of vomiting. She also states that she noticed black stool. In ER patient was found to have on VBG pH 7.2, bicarbonate 19.7, potassium 3.7, glucose level 134, serum osmolality 309, beta hydroxybutyrate 9, urine was positive for ketones.. HOSPITAL COURSE: 34 years old white female with past medical history of diabetes mellitus type 1 with frequent frequent admission to this hospital and I'll monitor hospitalist group was again admitted with the ketoacidosis to ICU. Initially patient was started on IV fluids and insulin infusion. Patient's blood sugar improved overnight in the morning. Neck she was transitioned to fingerstick blood sugar every before meals and at bedtime with coverage. Insulin drip was DC'd and she was started on consistent carbohydrate diet Patient was later started on her Home Basal Insulin dosage Patient was transferred to [facility] floor for overnight observation Patient remained asymptomatic, afebrile and today she'll be discharged home on all her home medications and follow with her PCP in one week Acute kidney injury: Secondary to DKA-resolved with IV hydration Patient received IV fluids with complete resolution Advised to increase intake of oral hydration at home as well. DISCHARGE MEDICATIONS: Please see below. ALLERGIES: Please see below. PHYSICAL EXAMINATION ON DISCHARGE: VITAL SIGNS: Please see below. GENERAL: Within normal limits HEENT: PERRLA. Extraocular muscles intact NECK: Supple CARDIOVASCULAR EXAMINATION: S1, S2, regular RESPIRATORY EXAMINATION: Clear to A&P ABDOMINAL EXAMINATION: , Soft, nontender, bowel sounds present. No organomegaly EXTREMITIES: No clubbing, cyanosis, edema SKIN: Normal NEUROLOGICAL EXAMINATION: . No focal motor sensory deficit PSYCHIATRIC EXAMINATION: Normal LABORATORY DATA: Please see below. 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 Otherwise unremarkable. PROGNOSIS: Good ACTIVITY: As tolerated. DIET: Consistent carbohydrate diet DISCHARGE PLAN: Discharged home DISPOSITION: 01 Home, Self-Care. DISCHARGE INSTRUCTIONS: 1. As per discharge instructions. ITEMS TO FOLLOWUP ON ON OUTPATIENT: 1. Follow with PCP in one week. DISCHARGE CONDITION: Stable. TIME SPENT ON DISCHARGE: 42 minutes. Vital Signs/I&Os Vital Signs Date Time Temp Pulse Resp B/P (MAP) Pulse Ox O2 Delivery O2 Flow Rate FiO2 05/09/20 06:00 97.9 80 15 132/96 (108) 96 Room Air I&O- Last 24 Hours up to 6 AM 05/09/20 06:00 Intake Total 962 ml Output Total 1000 ml Balance -38 ml Laboratory Data Labs 24H Laboratory Tests 2 05/08/20 14:00: Anion Gap 7L, Glomerular Filtration Rate 53.9L, Calcium Level 9.2 05/08/20 16:37: Bedside Glucose (Misc Panel) 216H 05/08/20 20:14: Bedside Glucose (Misc Panel) 255H 05/08/20 20:40: Bedside Glucose (Misc Panel) 235H 05/08/20 22:28: Anion Gap 6L, Glomerular Filtration Rate > 60.0, Calcium Level 8.9 05/09/20 05:47: Anion Gap 4L, Glomerular Filtration Rate > 60.0, Calcium Level 9.1, Immature Granulocyte % (Auto) 0.4, Neutrophils (%) (Auto) 40.6, Lymphocytes (%) (Auto) 48.9H, Monocytes (%) (Auto) 8.3H, Eosinophils (%) (Auto) 0.7, Basophils (%) (Auto) 1.1H, Neutrophils # (Auto) 1.1L, Lymphocytes # (Auto) 1.4L, Monocytes # (Auto) 0.2, Eosinophils # (Auto) 0.0, Basophils # (Auto) 0.0, Nucleated Red Blood Cells % (auto) 0.0, Magnesium Level 2.0, Total Bilirubin 0.4, Aspartate Amino Transf (AST/SGOT) 21, Alanine Aminotransferase (ALT/SGPT) 15, Alkaline Phosphatase 73, Total Protein 5.8L, Albumin 2.4L, Albumin/Globulin Ratio 0.7L, B-Hydroxybutyrate 1.32 05/09/20 11:27: Bedside Glucose (Misc Panel) 172H CBC/BMP Laboratory Tests 05/08/20 14:00 05/08/20 22:28 05/09/20 05:47 FSBS Laboratory Tests Test 05/08/20 16:37 05/08/20 20:14 05/08/20 20:40 05/09/20 11:27 Range/Units Bedside Glucose (Misc Panel) 216 255 235 172 70-105 MG/DL Microbiology Microbiology 05/08/20 Stool Occult Blood ([facility]) - Final, Complete 05/08/20 Gastrointestinal Tract Panel (PCR) - Final, Complete 05/07/20 Blood Culture - Preliminary, Resulted No growth after 24 hours . All specim... Discharge Medications Scheduled Atorvastatin Calcium (Atorvastatin Calcium) 40 Mg Tablet, 40 MG PO QHS, (Reported) Cholecalciferol (Vitamin D3) (Vitamin D3) 1,250 Mcg Capsule, 1,250 MCG PO QWEEK, (Reported) MONDAYS Cholecalciferol (Vitamin D3) (Vitamin D3) 125 Mcg Tablet, 125 MCG PO DAILY, (Reported) Insulin Degludec (Tresiba Flextouch U-100) 100 Unit/1 Ml Insuln.pen, 1 DOSE SC BID, (Reported) PATIENT ALWAYS DOES 34 UNITS TOTAL DAILY SPLIT BETWEEN TWO DOSES, STATES SHE ADJUSTS UNITS BASED ON SUGAR LEVEL IN THE AM. SOMETIMES SHE DOES 20 UNITS IN THE MORNING AND 14 UNITS AT NIGHT DEPENDING ON READINGS. Insulin Human Lispro (Novolog) 100 U/Ml Inj, 1 DOSE SC ACHS, (Reported) PER SLIDING SCALE Lisinopril (Lisinopril) 10 Mg Tablet, 10 MG PO DAILY, (Reported) Multivitamins (Thera M Plus Tablet) 1 Each Tablet, 1 TAB PO DAILY, (Reported) Scheduled PRN Cyclosporine (Restasis) 0.05 % Emu, 1 DROP OU BID PRN for DRY EYES, (Reported) PATIENT STATES SHE ONLY USES WHEN NEEDED. Ondansetron HCl (Ondansetron HCl) 4 Mg Tablet, 4 MG PO Q6H PRN for NAUSEA OR VOMITING, (Reported) Allergies Coded Allergies: TREES (Verified Allergy, Unknown, 10/10/19) mold (Verified Allergy, Unknown, 10/10/19) REESE OBANDO MD May 09, 2020 13:56
--- NOTE | 2020-05-09 17:08 | ECGEPIP ---
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
[2020-05-26] MEDS ORDERED: LORA-674 PO (14:25)
[2020-05-26] MEDS ORDERED: MED REC COMMENT (14:29)
== END 2020-05-09 12:33 | disposition home or self-care (01) | DRG 420 ==
LOC: M ED 15:57 → M ED INP 21:38 → OBSVTOIN 21:38 → ENRESERV 23:39 → M ICU 05-08 01:15 → M MSPAV 05-08 14:51
PROVIDERS: ADMIT Internal Medicine; ATTEND Internal Medicine
DX: E10.10 Type 1 diabetes mellitus with ketoacidosis without coma (principal); N17.9 Acute kidney failure, unspecified; E86.0 Dehydration; E78.5 Hyperlipidemia, unspecified; Z79.4 Long term (current) use of insulin; Z79.899 Other long term (current) drug therapy; E87.6 Hypokalemia

== ENCOUNTER → 2020-06-17 | Outpatient (REF) | payer OTHER ==
[~2020-06-17] MED LIST changes: +LISI-542 PO; -LISI-898 PO; -LISI10TA22 PO; +LISI10TA4 PO; +LORA-674 PO; +MED REC COMMENT; -METH-1164 PO; +METH1TAB40 PO; +ONDA-83 PO; +SLF TR; +VITA500038 PO
[2020-07-14 20:28] LABS: BASO % 0.6 % (0.0-1.0); EOS # 0.1 10^3/uL (0.0-0.5); EOS % 1.3 % (0.0-3.0); HEMATOCRIT 41.5 % (36.0-47.0); HEMOGLOBIN 12.8 g/dl (12.0-15.5); LYMPH # 1.6 10^3/uL (1.5-5.0); LYMPH % 33.9 % (24.0-44.0); MEAN CORPUSCULAR HEMOGLOBIN 29.1 pg (27.0-33.0); MEAN CORPUSCULAR HGB CONC 30.8 g/dl (32.0-36.5); MEAN CORPUSCULAR VOLUME 94.3 fl (80.0-96.0); MONO # 0.5 10^3/uL (0.0-0.8); MONO % 10.9 % (0.0-5.0); NEUTROPHILS # 2.5 10^3/uL (1.5-8.5); NEUTROPHILS % 52.9 % (36.0-66.0); PLATELET COUNT, AUTOMATED 279 10^3/uL (150-450); WHITE BLOOD COUNT 4.8 10^3/uL (4.0-10.0)
[2020-07-24 14:13] LABS: ALBUMIN 2.9 GM/DL (3.2-5.2); ALT/SGPT 36 U/L (12-78); BILIRUBIN,TOTAL 0.2 MG/DL (0.2-1.0); BLOOD UREA NITROGEN 6 MG/DL (7-18); CALCIUM LEVEL 9.2 MG/DL (8.5-10.1); CARBON DIOXIDE LEVEL 31 MEQ/L (21-32); CHLORIDE LEVEL 103 MEQ/L (98-107); CHOLESTEROL LEVEL 275 MG/DL (<200); CHOLESTEROL RISK RATIO 8.593 (<5); CREATININE FOR GFR 0.95 MG/DL (0.55-1.30); FREE T4 0.97 NG/DL (0.76-1.46); GLOMERULAR FILTRATION RATE > 60.0 (>60); GLUCOSE, FASTING 178 MG/DL (70-100); HDL CHOLESTEROL 32 MG/DL (>40); NON-HDL-C 243 MG/DL; POTASSIUM SERUM 4.4 MEQ/L (3.5-5.1); SODIUM LEVEL 137 MEQ/L (136-145); TOTAL 25(OH) VITAMIN D 42.6 NG/ML (30.0-100.0); TOTAL PROTEIN 7.1 GM/DL (6.4-8.2); TRIGLYCERIDES LEVEL 409 MG/DL (<150)
== END ==
LOC: M LAB REF 17:08
PROVIDERS: ATTEND Nurse Practitioner Family
DX: I10 Essential (primary) hypertension (principal); E55.9 Vitamin D deficiency, unspecified; R51 Headache; E78.5 Hyperlipidemia, unspecified; Z13.9 Encounter for screening, unspecified; J20.9 Acute bronchitis, unspecified; E10.9 Type 1 diabetes mellitus without complications; E78.70 Disorder of bile acid and cholesterol metabolism, unspecified; E66.3 Overweight

== ENCOUNTER 2020-06-20 14:08 | Emergency (ER) | payer OTHER ==
[~2020-06-20 14:08] MED LIST changes: -SLF TR
[2020-08-03 16:33] LABS: BASO % 0.8 % (0.0-1.0); EOS # 0.1 10^3/uL (0.0-0.5); HEMOGLOBIN 12.6 g/dl (12.0-15.5); LYMPH # 1.4 10^3/uL (1.5-5.0); LYMPH % 27.7 % (24.0-44.0); MEAN CORPUSCULAR HEMOGLOBIN 29.4 pg (27.0-33.0); MEAN CORPUSCULAR HGB CONC 32.3 g/dl (32.0-36.5); MEAN CORPUSCULAR VOLUME 90.9 fl (80.0-96.0); MONO # 0.4 10^3/uL (0.0-0.8); MONO % 7.1 % (0.0-5.0); NEUTROPHILS # 3.3 10^3/uL (1.5-8.5); PLATELET COUNT, AUTOMATED 223 10^3/uL (150-450); RED BLOOD COUNT 4.29 10^6/uL (4.00-5.40); WHITE BLOOD COUNT 5.2 10^3/uL (4.0-10.0)
[2020-09-08 12:38] LABS: ALBUMIN 2.9 GM/DL (3.2-5.2); ALT/SGPT 28 U/L (12-78); BILIRUBIN,TOTAL 0.3 MG/DL (0.2-1.0); BLOOD UREA NITROGEN 7 MG/DL (7-18); CALCIUM LEVEL 9.3 MG/DL (8.5-10.1); CARBON DIOXIDE LEVEL 29 MEQ/L (21-32); CHLORIDE LEVEL 107 MEQ/L (98-107); CREATININE FOR GFR 0.89 MG/DL (0.55-1.30); GLOMERULAR FILTRATION RATE > 60.0 (>60); GLUCOSE, FASTING 91 MG/DL (70-100); SODIUM LEVEL 142 MEQ/L (136-145); TOTAL PROTEIN 6.9 GM/DL (6.4-8.2)
== END 2020-06-20 19:30 | disposition home or self-care (01) ==
LOC: M ED 14:08
DX: R19.7 Diarrhea, unspecified (principal); E11.9 Type 2 diabetes mellitus without complications; Z79.4 Long term (current) use of insulin; Z79.899 Other long term (current) drug therapy

== ENCOUNTER 2020-06-25 11:40 | Emergency (ER) | payer OTHER | END 2020-06-25 11:50 | disposition home or self-care (01) | LOC: M ED 11:40 | DX: J95.03 Malfunction of tracheostomy stoma (principal); E11.9 Type 2 diabetes mellitus without complications; E78.5 Hyperlipidemia, unspecified; Z79.4 Long term (current) use of insulin; Z79.899 Other long term (current) drug therapy ==

== ENCOUNTER 2020-07-10 15:12 | Emergency (ER) | payer OTHER ==
[~2020-07-10] VITALS: Ht 162.6 cm; Wt 69.4 kg
[2020-07-10 19:23] LABS: BASO % 0.5 % (0.0-1.0); EOS # 0.1 10^3/uL (0.0-0.5); EOS % 0.8 % (0.0-3.0); HEMOGLOBIN 12.9 g/dl (12.0-15.5); LYMPH # 1.7 10^3/uL (1.5-5.0); LYMPH % 27.1 % (24.0-44.0); MEAN CORPUSCULAR HEMOGLOBIN 29.4 pg (27.0-33.0); MEAN CORPUSCULAR HGB CONC 33.9 g/dl (32.0-36.5); MEAN CORPUSCULAR VOLUME 86.6 fl (80.0-96.0); MONO # 0.3 10^3/uL (0.0-0.8); MONO % 4.7 % (0.0-5.0); NEUTROPHILS # 4.1 10^3/uL (1.5-8.5); NEUTROPHILS % 66.6 % (36.0-66.0); PLATELET COUNT, AUTOMATED 293 10^3/uL (150-450); RED BLOOD COUNT 4.39 10^6/uL (4.00-5.40); WHITE BLOOD COUNT 6.2 10^3/uL (4.0-10.0)
[2020-07-10 19:47] LABS: BLOOD UREA NITROGEN 21 MG/DL (7-18); CALCIUM LEVEL 9.6 MG/DL (8.5-10.1); CARBON DIOXIDE LEVEL 26 MEQ/L (21-32); CHLORIDE LEVEL 110 MEQ/L (98-107); CREATININE FOR GFR 0.72 MG/DL (0.55-1.30); GLOMERULAR FILTRATION RATE > 60.0 (>60); GLUCOSE, FASTING 98 MG/DL (70-100); POTASSIUM SERUM 3.9 MEQ/L (3.5-5.1); SODIUM LEVEL 142 MEQ/L (136-145)
[2020-07-10 20:00] LABS: INR 0.99; PROTHROMBIN TIME 13.3 SECONDS (11.8-14.0)
[2020-07-10 20:01] LABS: PARTIAL THROMBOPLASTIN TIME 27.9 SECONDS (25.0-38.4)
[2020-07-10] MEDS ORDERED: SLF TR (20:28)
[2020-07-10 20:49] VITALS: BP 131/93
--- NOTE | 2020-07-21 13:02 | REP ---
TWO-VIEW CHEST REASON FOR EXAM: Hemoptysis. PRIOR EXAMS: Multiple, the latest 06/03/2020. FINDINGS: The lung pike are clear and unchanged. Cardiomediastinal silhouette is stable. There are no acute patchy parenchymal opacity or pleural effusions. Since the last examination, a tracheostomy tube has been placed, which appears to be in satisfactory position and alignment. The osseous structures are stable and intact. IMPRESSION: No acute disease. Findings as described above. MTDD
== END 2020-07-10 20:58 | disposition home or self-care (01) ==
LOC: M ED 15:12
DX: R04.2 Hemoptysis (principal); E11.9 Type 2 diabetes mellitus without complications; E78.5 Hyperlipidemia, unspecified; Z79.4 Long term (current) use of insulin; Z79.899 Other long term (current) drug therapy; Z93.0 Tracheostomy status

== ENCOUNTER 2020-12-10 12:00 | Inpatient (IN) | payer OTHER ==
[~2020-12-10] VITALS: Ht 162.6 cm; Wt 65.0 kg
[~2020-12-10 12:00] MED LIST changes: +SLF TR
[2020-12-10] MEDS ORDERED: MAPA500C PO (12:30)
[2020-12-10] MEDS ORDERED: QVAR80AE8 INH (12:31)
[2020-12-10] MEDS ORDERED: KETOROLAC 30 MG/ML 1ML VIAL IV ONE ×2 (13:45→21:15)
[2020-12-10] MEDS ORDERED: METOCLOPRAMIDE INJ 10MG/2ML VIAL (J2765 PER 1) IV ONE (13:45)
[2020-12-10] MEDS ORDERED: NS 1,000 ML IV ONE ×3 (13:45→19:15)
--- NOTE | 2020-12-10 15:01 | REP ---
INDICATION: cough, sob. COMPARISON: Comparison chest x-ray July 10, 2020. TECHNIQUE: Portable upright AP chest radiograph. FINDINGS: The lungs are well inflated and free of infiltrate. Pleural angles are sharp. Heart size is normal. Pulmonary vasculature is not increased. Tracheostomy tube is again seen in good position. IMPRESSION: No active disease. Tracheostomy tube in place. No infiltrates seen.. <Electronically signed by Reji Salazar > 12/10/20 [id number]
[2020-12-10] MEDS ORDERED: ONDANSETRON 4 MG ORAL DISINTEGRATING TAB PO ONE (15:30)
[2020-12-10] MEDS ORDERED: KETOROLAC 30 MG/ML 1ML VIAL IM ONE (15:30)
[2020-12-10] MEDS ORDERED: ACETAMINOPHEN TAB 650MG DOSE (2X325MG) PO ONE (15:30)
[2020-12-10] MEDS ORDERED: HumuLIN R (REGULAR) INSULIN (NovoLIN R) **100U/ML** PER UNIT IV ONE ×2 (16:45→17:45)
[2020-12-10] MEDS ORDERED: HumuLIN R (REGULAR) INSULIN (NovoLIN R) **100U/ML** PER UNIT SC STA (16:50)
[2020-12-10 17:15] LABS: ABG HCO3 5.3 MEQ/L (22.0-26.0); ABG O2 SATURATION 98.2 % (95.0-99.0); ABG PARTIAL PRESSURE O2 125.1 mmHg (75.0-100.0); ABG STANDARD HCO3 9.1 MEQ/L (22.0-26.0); ABG TOTAL CO2 5.8 MEQ/L (22.0-29.0)
[2020-12-10 17:20] LABS: ABG pH (ARTERIAL) 7.117 UNITS (7.350-7.450)
[2020-12-10 17:21] LABS: ABG PARTIAL PRESSURE CO2 16.7 mmHg (35.0-45.0)
[2020-12-10 18:09] LABS: BASO % 0.4 % (0.0-1.0); HEMATOCRIT 51.1 % (36.0-47.0); HEMOGLOBIN 16.3 g/dl (12.0-15.5); LYMPH # 1.3 10^3/uL (1.5-5.0); MEAN CORPUSCULAR HEMOGLOBIN 29.4 pg (27.0-33.0); MEAN CORPUSCULAR HGB CONC 31.9 g/dl (32.0-36.5); MEAN CORPUSCULAR VOLUME 92.2 fl (80.0-96.0); MONO # 0.6 10^3/uL (0.0-0.8); MONO % 5.4 % (0.0-5.0); NEUTROPHILS # 8.8 10^3/uL (1.5-8.5); NEUTROPHILS % 81.9 % (36.0-66.0); PLATELET COUNT, AUTOMATED 313 10^3/uL (150-450); RED BLOOD COUNT 5.54 10^6/uL (4.00-5.40); WHITE BLOOD COUNT 10.7 10^3/uL (4.0-10.0)
[2020-12-10] MEDS ORDERED: INSULIN REGULAR IN 0.9 % NACL 100 UNIT in IV 1 EA IV SCH ×2 (18:10)
[2020-12-10] MEDS ORDERED: TRES1INJ2 SC (18:28)
[2020-12-10] MEDS ORDERED: ACET500T15 PO (18:28)
[2020-12-10 18:32] LABS: ALBUMIN 3.7 GM/DL (3.2-5.2); ALT/SGPT 20 U/L (12-78); BILIRUBIN,DIRECT < 0.1 MG/DL (0.0-0.2); BILIRUBIN,TOTAL 0.4 MG/DL (0.2-1.0); LIPASE 58 U/L (73-393); MAGNESIUM LEVEL 2.3 MG/DL (1.8-2.4); TOTAL PROTEIN 8.2 GM/DL (6.4-8.2)
--- OUTSIDE RECORDS SUMMARY | 2020-12-10 19:44 | CCD ---
Author Organization Unknown Address [address] [place] [address] Phone [phone] Care Team Providers Care Environmental Remediation Specialist Name Role Phone Nikki Mckenzie Unavailable Unavailable Allergies Code Code System Name Reaction Severity Status Onset [id number] RxNorm Mold Active Tree and Shrub Pollen Active NKDA Medications Name Status Start Date Stop Date atorvastatin 20 mg tablet Active Not av ailable atorvastatin 40 mg tablet Active Not av ailable Baqsimi 3 mg/actuation nasal spray SPRAY 3MG IN ONE NOSTRIL TO TREAT SEVERE HYPOGLYCEMIA Active Not available cholecalciferol (vitamin D3) 1,250 mcg ( 50,000 unit) capsule TK 1 C PO ONCE PER WEEK Active Not available cholecalciferol (vitamin D3) 50 mcg (2,0 00 unit) tablet TK ONE T PO D Active Not available ergocalciferol (vitamin D2) 1,250 mcg (5 0,000 unit) capsule TK 1 C PO 1 TIME A WK FOR 8 WKS ONLY Active No t available ibuprofen 600 mg tablet Active Not avai lable insulin syringe U-100 with needle 1 mL 31 gauge x 5/16" Active Not available lisinopril 10 mg tablet TK 1 T PO D Active Not available lisinopril 5 mg tablet TK 1 T PO QD Active Not available Novolog U-100 Insulin aspart 100 unit/mL subcutaneous solution INJECT PER SLIDING SCALE MDD 95 UNITS WITH TITRATION Active Not available ondansetron HCl 4 mg tablet TK 1 T PO Q 6 H Active Not available Phosphorous Supplement 280 mg-160 mg-250 mg oral powder packet MIX 1 PACKET AND DRINK THREE TIMES DAILY Active Not available prednisone 20 mg tablet TK 2 TS PO D FOR 4 DAYS Active Not available Qvar RediHaler 80 mcg/actuation HFA breath activated aerosol Act rowena Not available Tresiba FlexTouch U-100 insulin 100 unit /mL (3 mL) subcutaneous pen INJECT 17 UNITS IN THE MORNING AND 17 UNITS IN THE EVENING UTD. 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 History Overweight Active 07/24/2018 History Body Mass Index 25-29 - Overweight Active 07/24/2018 History Type 1 Diabetes Mellitus without Complication Active History Acute Bronchitis Active 04/23/2019 History Clinical Finding Active 04/23/[address] Concept Active 06/04/2019 History Diarrhea Active 06/28/2019 History Clinical Finding Active 09/25/2019 History Hyperlipidemia Active 12/25/2019 History Headache Active 12/25/2019 History Vitamin D Deficiency Active 03/25/2020 History Hypertensive Disorder Active 03/25/2020 History Patient Asked to Attend Active 03/25/2020 History Respiratory Finding Active 06/24/2020 History 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 Procedures Notes: LEEP , tracheostomy 05/28/20 Results Lab Results Date Name Specimen Result Interpretation Description Value Range Status Address 06/20/2020 CMP, Serum or Plasma Normal Glucose, Fastin g 91 mg/dL 70-100 mg/dL [facility]: [address] [facility] Normal Blood Urea Nitrogen 7 mg/dL 7-18 mg/ dL [facility]: [address] [facility] Normal Creatinine for GFR 0.89 mg/dL 0.55-1 .30 mg/dL [facility]: [address] [facility] Normal Glomerular Filtration Rate > 60.0 >6 0 [facility]: [address] [facility] Normal Sodium Level 142 mEq/L 136-145 mEq/L [facility]: [address] [facility] Normal Potassium Serum 4.0 mEq/L 3.5-5.1 mE q/L [facility]: [address] [facility] Normal Chloride Level 107 mEq/L 98-107 mEq/ L [facility]: [address] [facility] Normal Carbon Dioxide Level 29 mEq/L 21-32 mEq/L [facility]: [address] [facility] Low Anion Gap 6 mEq/L 8-16 mEq/L [facility]: [address] [facility] Normal Calcium Level 9.3 mg/dL 8.5-10.1 mg/ dL [facility]: [address] [facility] Normal AST/SGOT 26 U/L 7-37 U/L Final [facility]: [address] [facility] Normal ALT/SGPT 28 U/L 12-78 U/L Final [facility]: [address] [facility] Normal Alkaline Phosphatase 94 U/L 45-117 U /L [facility]: [address] [facility] Normal Bilirubin,total 0.3 mg/dL 0.2-1.0 mg /dL [facility]: [address] [facility] Normal Total Protein 6.9 gm/dL 6.4-8.2 gm/d L [facility]: [address] [facility] Low Albumin 2.9 gm/dL 3.2-5.2 gm/dL Bailee l [facility]: [address] [facility] Low Albumin/globulin Ratio 0.7 1.2-2. 2 [facility]: [address] [facility] Past Encounters 09/25/2020 Administration of Influenza Vaccine; Type 1 Diabetes Mellitus without Complication; Subglottic Stenosis; Type 2 Diabetes Mellitus without Complication Cesar Lentz MD: [address] [place] [address], Ph. Social History Tobacco Smoking Status Never Smoker Vaccine List Vaccine Type influenza, injectable, quadrivalent, pre servative free 09/25/20200.5 mL Plan of Care Reminders Provider Appointments None recorded. Lab None recorded. Referral None recorded. Procedures None recorded. Surgeries None recorded. Imaging None recorded. Vitals 09/25/2020 01:20PM ESTABLISHED [id number] Height Weight BMI Blood Pressure 64 in 147 lbs 25.2 kg/m2 105/66 mm[Hg] 06/24/2020 Height Weight Blood Pressure 64 in 155 lbs 115/83 mm[Hg] 12/25/2019 Weight Blood Pressure 171 lbs 4 oz 118/83 mm[Hg] 09/25/2019 Height Weight Blood Pressure 64 in 160 lbs 8 oz 114/74 mm[Hg] 06/28/2019 Height Weight Blood Pressure 64 in 157 lbs 6.4 oz 118/89 mm[Hg] 06/04/2019 Height Weight Blood Pressure 64 in 163 lbs 130/86 mm[Hg] 04/23/2019 Height Weight Blood Pressure 64 in 167 lbs 9.6 oz 122/81 mm[Hg]
--- OUTSIDE RECORDS SUMMARY | 2020-12-10 19:44 | CCD ---
Author Author [facility] Address Unknown Phone Unavailable Support Name Relationship Address Phone Dixie Philippe Next Of Kin Unknown Unavailable MCDONCARNANCY Next Of Kin [address] [place] [address] [employer] Next Of Kin [address] [place] [address] Nikki Flowers Next Of Kin [address] [facility] [place] [address] DIXIE TONEY Next Of Kin [address] [place] [address] JAMES EAVNS Next Of Kin [address] [facility] [address] [place] [address] SYL Next Of Kin [address] [place] [address] DIXIE ADLER Next Of Kin [address] [place] [address] MING LOPEZ Next Of Kin [address] [facility] [address] [place] [address] Unavailable MELODIE BURNETT Next Of Kin Unknown [employer] (MCDONAL Next Of Kin [address] [facility] [address] [place] [address] CYNDI MCKEON Next Of Kin [address] [place] [address] MCDONALDS Next Of Kin [address] [facility] [place] [address] NEISHA TERESA Next Of Kin [address] [place] [address] ST Next Of Kin Unknown Unavailable ABIMBOLA BURNETT Next Of Kin [address] [place] [address] AMIE Next Of Kin [address] [place] [address] ANGEL BURNETT Next Of Kin [address] [place] [address] [employer]IAN[employer], (HC PROX[employer]) MELODIE Next Of Kin [address] [place] [address] Care Team Providers Care Staff Midwife Name Role Phone Chris Lentz MD Unavailable Unavailable Chris Lentz MD Unavailable Unavailable Chris Lentz MD Unavailable Unavailable hCris Lentz MD Unavailable Unavailable Chris Lentz MD Unavailable Unavailable Chris Lentz MD Unavailable Unavailable Chris Lentz MD Unavailable Unavailable Chris Lentz MD Unavailable Unavailable Chris Lentz MD Unavailable Unavailable Chris Lentz MD Unavailable Unavailable Chris Lentz MD Unavailable Unavailable Chris Lentz MD Unavailable Unavailable Chris Lentz MD Unavailable Unavailable Chris Lentz MD Unavailable Unavailable Chris Lentz MD Unavailable Unavailable Chris Lentz MD Unavailable Unavailable Chris Lentz MD Unavailable Unavailable Chris Lentz MD Unavailable Unavailable Chris Lentz MD Unavailable Unavailable Chris Lentz MD Unavailable Unavailable Chris Lentz MD Unavailable Unavailable Chris Lentz MD Unavailable Unavailable Chris Lentz MD Unavailable Unavailable Chris Lentz MD Unavailable Unavailable Chris Lentz MD Unavailable Unavailable Chris Lentz MD Unavailable Unavailable Chris Lentz MD Unavailable Unavailable Chris Lentz MD Unavailable Unavailable Chris Lentz MD Unavailable Unavailable Chris Lentz MD Unavailable Unavailable Chris Lentz MD Unavailable Unavailable Chris Lentz MD Unavailable Unavailable Chris Lentz MD Unavailable Unavailable Chris Lentz MD Unavailable Unavailable Chris Lentz MD Unavailable Unavailable Chris Lentz MD Unavailable Unavailable Chris Lentz MD Unavailable Unavailable Chris Letnz MD Unavailable Unavailable Chris Lentz MD Unavailable Unavailable Chris Lentz MD Unavailable Unavailable Chris Lentz MD Unavailable Unavailable Chris Lentz MD Unavailable Unavailable Chris Lentz MD Unavailable Unavailable Chris Lentz MD Unavailable Unavailable Chris Lentz MD Unavailable Unavailable Chris Lentz MD Unavailable Unavailable Chris Lentz MD Unavailable Unavailable Chris Lentz MD Unavailable Unavailable Chris Lentz MD Unavailable Unavailable Chris Lentz MD Unavailable Unavailable Chris Lentz MD Unavailable Unavailable Chris Lentz MD Unavailable Unavailable Chris Lentz MD Unavailable Unavailable Chris Lentz MD Unavailable Unavailable Chrsi Lentz MD Unavailable Unavailable Chris Lentz MD Unavailable Unavailable Chris Lentz MD Unavailable Unavailable Chris Lentz MD Unavailable Unavailable Chris Lentz MD Unavailable Unavailable Chris Lentz MD Unavailable Unavailable Chris Lentz MD Unavailable Unavailable Chris Lentz MD Unavailable Unavailable Chris Lentz MD Unavailable Unavailable Chris Lentz MD Unavailable Unavailable Chris Lentz MD Unavailable Unavailable Chris Lentz MD Unavailable Unavailable Chris Lentz MD Unavailable Unavailable Chris Lentz MD Unavailable Unavailable Mary Carmen, Chris Guerrero MD Unavailable Unavailable Mary Carmen, Chris Guerrero MD Unavailable Unavailable Mary Carmen, Chris Guerrero MD Unavailable Unavailable Mary Carmen, Chris Guerrero MD Unavailable Unavailable Chris Lentz MD Unavailable Unavailable Chris Lentz MD Unavailable Unavailable Mary Carmen, Chris Guerrero MD Unavailable Unavailable Chris Lentz MD Unavailable Unavailable Chris Lentz MD Unavailable Unavailable Mary Carmen, Chris Guerrero MD Unavailable Unavailable Mary Carmen, Chris Guerrero MD Unavailable Unavailable Chris Lentz MD Unavailable Unavailable Mary Carmen, Chris Guerrero MD Unavailable Unavailable Chris Lentz MD Unavailable Unavailable Chris Lentz MD Unavailable Unavailable Chris Lentz MD Unavailable Unavailable Chris Lentz MD Unavailable Unavailable Chris Lentz MD Unavailable Unavailable Chris Lentz MD Unavailable Unavailable Chris Lentz MD Unavailable Unavailable Chris Lentz MD Unavailable Unavailable Supa ORDONEZ Unavailable Unavailable HEAVEN, LOU PA Unavailable Unavailable HEAVEN, LOU PA Unavailable Unavailable HEAVEN, LOU PA Unavailable Unavailable HEAVEN, LOU PA Unavailable Unavailable HEAVEN, LOU PA Unavailable Unavailable HEAVEN, LOU PA Unavailable Unavailable HEAVEN, LOU PA Unavailable Unavailable HEAVEN, LOU PA Unavailable Unavailable HEAVEN, LOU PA Unavailable Unavailable HEAVEN, LOU PA Unavailable Unavailable HEAVEN, LOU PA Unavailable Unavailable HEAVEN, LOU PA Unavailable Unavailable HEAVEN, LOU PA Unavailable Unavailable HEAVEN, LOU PA Unavailable Unavailable HEAVEN, LOU PA Unavailable Unavailable HEAVEN, LOU PA Unavailable Unavailable HEAVEN, LOU PA Unavailable Unavailable HEAVEN, LOU PA Unavailable Unavailable HEAVEN, LOU PA Unavailable Unavailable HEAVEN, LOU PA Unavailable Unavailable HEAVEN, LOU PA Unavailable Unavailable HEAVEN, LOU PA Unavailable Unavailable HEAVEN, LOU PA Unavailable Unavailable HEAVEN, LOU PA Unavailable Unavailable HEAVEN, LOU PA Unavailable Unavailable HEAVEN, LOU PA Unavailable Unavailable HEAVEN, LOU PA Unavailable Unavailable HEAVEN, LOU PA Unavailable Unavailable HEAVEN, LOU PA Unavailable Unavailable HEAVEN, LOU PA Unavailable Unavailable HEAVEN, LOU PA Unavailable Unavailable HEAVEN, LOU PA Unavailable Unavailable HEAVEN, LOU PA Unavailable Unavailable HEAVEN, LOU PA Unavailable Unavailable HEAVEN, LOU PA Unavailable Unavailable HEAVEN, LOU PA Unavailable Unavailable HEAVEN, LOU PA Unavailable Unavailable HEAVEN, LOU PA Unavailable Unavailable ANNIE, GABRIELLA PA Unavailable Unavailable ANNIE, GABRIELLA PA Unavailable Unavailable ANNIE, GABRIELLA PA Unavailable Unavailable ANNIE, GABRIELLA PA Unavailable Unavailable ANNIE, GABRIELLA PA Unavailable Unavailable ANNIE, GABRIELLA PA Unavailable Unavailable ANNIE, GABRIELLA PA Unavailable Unavailable ANNIE, GABRIELLA PA Unavailable Unavailable ANNIE, GABRIELLA PA Unavailable Unavailable ANNIE, GABRIELLA PA Unavailable Unavailable ANNIE, GABRIELLA PA Unavailable Unavailable ANNIE, GABRIELLA PA Unavailable Unavailable ANNIE, GABRIELLA PA Unavailable Unavailable ANNIE, GABRIELLA PA Unavailable Unavailable ANNIE, GABRIELLA PA Unavailable Unavailable ANNIE, GABRIELLA PA Unavailable Unavailable ANNIE, GABRIELLA PA Unavailable Unavailable ANNIE, GABRIELLA PA Unavailable Unavailable ANNIE, GABRIELLA PA Unavailable Unavailable ANNIE, GABRIELLA PA Unavailable Unavailable ANNIE, GABRIELLA PA Unavailable Unavailable ANNIE, GABRIELLA PA Unavailable Unavailable ANNIE, GABRIELLA PA Unavailable Unavailable ANNIE, GABRIELLA PA Unavailable Unavailable ANNIE, GABRIELLA PA Unavailable Unavailable ANNIE, GABRIELLA PA Unavailable Unavailable ANNIE, GABRIELLA PA Unavailable Unavailable ANNIE, GABRIELLA PA Unavailable Unavailable ANNIE, GABRIELLA PA Unavailable Unavailable ANNIE, GABRIELLA PA Unavailable Unavailable ANNIE, GABRIELLA PA Unavailable Unavailable ANNIE, GABRIELLA PA Unavailable Unavailable ANNIE, GABRIELLA PA Unavailable Unavailable ANNIE, GABRIELLA PA Unavailable Unavailable ANNIE, GABRIELLA PA Unavailable Unavailable Hayley Urrutia MD Unavailable Unavailable Hayley Urrutia MD Unavailable Unavailable Hayley Urrutia MD Unavailable Unavailable Hayley Urrutia MD Unavailable Unavailable Hayley Urrutia MD Unavailable Unavailable Hayley Urrutia MD Unavailable Unavailable Hayley Urrutia MD Unavailable Unavailable Hayley Urrutia MD Unavailable Unavailable Hayley Urrutia MD Unavailable Unavailable Hayley Urrutia MD Unavailable Unavailable Hayley Urrutia MD Unavailable Unavailable Hayley Urrutia MD Unavailable Unavailable Hayley Urrutia MD Unavailable Unavailable Hayley Urrutia MD Unavailable Unavailable Hayley Urrutia MD Unavailable Unavailable Hayley Urrutia MD Unavailable Unavailable Hayley Urrutia MD Unavailable Unavailable Hayley Urrutia MD Unavailable Unavailable Hayley Urrutia MD Unavailable Unavailable Hayley Urrutia MD Unavailable Unavailable Hayley Urrutia MD Unavailable Unavailable Hayley Urrutia MD Unavailable Unavailable Hayley Urrutia MD Unavailable Unavailable Hayley Urrutia MD Unavailable Unavailable Ordoñez, Josie RAILROAD CROSSING PROTECTION MAINTAINER Unavailable Unavailable Ordoñez, Josie RAILROAD CROSSING PROTECTION MAINTAINER Unavailable Unavailable Ordoñez, Josie RAILROAD CROSSING PROTECTION MAINTAINER Unavailable Unavailable Ordoñez, Josie RAILROAD CROSSING PROTECTION MAINTAINER Unavailable Unavailable Ordoñez, Josie RAILROAD CROSSING PROTECTION MAINTAINER Unavailable Unavailable Ordoñez, Josie RAILROAD CROSSING PROTECTION MAINTAINER Unavailable Unavailable Ordoñez, Josie RAILROAD CROSSING PROTECTION MAINTAINER Unavailable Unavailable Ordoñez, Josie RAILROAD CROSSING PROTECTION MAINTAINER Unavailable Unavailable Ordoñez, Josie RAILROAD CROSSING PROTECTION MAINTAINER Unavailable Unavailable Ordoñez, Josie RAILROAD CROSSING PROTECTION MAINTAINER Unavailable Unavailable Ordoñez, Josie RAILROAD CROSSING PROTECTION MAINTAINER Unavailable Unavailable NALLA, PILY Unavailable Unavailable AustinRoscoe MD Unavailable Unavailable Austin, Roscoe SELLERS Unavailable Unavailable Austin, Roscoe SELLERS Unavailable Unavailable AustinRoscoe MD Unavailable Unavailable AustinRoscoe MD Unavailable Unavailable AustinRoscoe MD Unavailable Unavailable Austin, Roscoe SELLERS Unavailable Unavailable Austin, Roscoe SELLERS Unavailable Unavailable Austin, Roscoe SELLERS Unavailable Unavailable Austin, Roscoe SELLERS Unavailable Unavailable Austin, Roscoe SELLERS Unavailable Unavailable Austin, Roscoe SELLERS Unavailable Unavailable Austin, Roscoe SELLERS Unavailable Unavailable Austin, Roscoe SELLERS Unavailable Unavailable Austin, Roscoe SELLERS Unavailable Unavailable Austin, Roscoe MD Unavailable Unavailable Austin, Roscoe SELLERS Unavailable Unavailable Austin, Roscoe SELLERS Unavailable Unavailable Austin, Roscoe SELLERS Unavailable Unavailable Austin, Roscoe SELLERS Unavailable Unavailable Austin, Roscoe SELLERS Unavailable Unavailable Austin, Roscoe SELLERS Unavailable Unavailable Austin, Roscoe SELLERS Unavailable Unavailable Austin, Roscoe SELLERS Unavailable Unavailable Austin, Roscoe SELLERS Unavailable Unavailable AustinRoscoe MD Unavailable Unavailable AustinRoscoe MD Unavailable Unavailable AustinRoscoe MD Unavailable Unavailable LETTIERE, A KAYLIN PA Unavailable Unavailable LETTIERE, A KAYLIN PA Unavailable Unavailable LETTIERE, A KAYLIN PA Unavailable Unavailable LETTIERE, A KAYLIN PA Unavailable Unavailable LETTIERE, A KAYLIN PA Unavailable Unavailable LETTIERE, A KAYLIN PA Unavailable Unavailable LETTIERE, A KAYLIN PA Unavailable Unavailable LETTIERE, A KAYLIN PA Unavailable Unavailable LETTIERE, A KAYLIN PA Unavailable Unavailable LETTIERE, A KAYLIN PA Unavailable Unavailable LETTIERE, A KAYLIN PA Unavailable Unavailable LETTIERE, A KAYLIN PA Unavailable Unavailable LETTIERE, A KAYLIN PA Unavailable Unavailable LETTIERE, A KAYLIN PA Unavailable Unavailable LETTIERE, A KAYLIN PA Unavailable Unavailable LETTIERE, A KAYLIN PA Unavailable Unavailable LETTIERE, A KAYLIN PA Unavailable Unavailable LETTIERE, A KAYLIN PA Unavailable Unavailable LETTIERE, A KAYLIN PA Unavailable Unavailable LETTIERE, A KAYLIN PA Unavailable Unavailable LETTIERE, A KAYLIN PA Unavailable Unavailable LETTIERE, A KAYLIN PA Unavailable Unavailable LETTIERE, A KAYLIN PA Unavailable Unavailable LETTIERE, A KAYLIN PA Unavailable Unavailable LETTIERE, A KAYLIN PA Unavailable Unavailable LETTIERE, A KAYLIN PA Unavailable Unavailable LETTIERE, A KAYLIN PA Unavailable Unavailable LETTIERE, A KAYLIN PA Unavailable Unavailable LETTIERE, A KAYLIN PA Unavailable Unavailable Carolina AMES MD Unavailable Unavailable Craolina AMES MD Unavailable Unavailable Carolina AMES MD Unavailable Unavailable Carolina AMES MD Unavailable Unavailable Carolina AMES MD Unavailable Unavailable Carolina AMES MD Unavailable Unavailable Carolina AMES MD Unavailable Unavailable Carolina AMES MD Unavailable Unavailable Carolina AMES MD Unavailable Unavailable Carolina AMES MD Unavailable Unavailable Carolina AMES MD Unavailable Unavailable Carolina AMES MD Unavailable Unavailable Carolina AMES MD Unavailable Unavailable Carolina AMES MD Unavailable Unavailable Carolina AMES MD Unavailable Unavailable Carolina AMES MD Unavailable Unavailable Carolina AMES MD Unavailable Unavailable Carolina AMES MD Unavailable Unavailable Carolina AMES MD Unavailable Unavailable Carolina AMES MD Unavailable Unavailable Carolina AMES MD Unavailable Unavailable Carolina AMES MD Unavailable Unavailable Carolina AMES MD Unavailable Unavailable Carolina AMES MD Unavailable Unavailable Carolina AMES MD Unavailable Unavailable Carolina AMES MD Unavailable Unavailable Carolina AMES MD Unavailable Unavailable Carolina AMES MD Unavailable Unavailable Carolina AMES MD Unavailable Unavailable Carolina AMES MD Unavailable Unavailable Carolina AMES MD Unavailable Unavailable Carolina AMES MD Unavailable Unavailable Carolina AMES MD Unavailable Unavailable Carolina AMES MD Unavailable Unavailable Carolina AMES MD Unavailable Unavailable Carolina AMES MD Unavailable Unavailable HUICarolina CATHERINE MD Unavailable Unavailable HUICarolina CATHERINE MD Unavailable Unavailable HUICarolina CATHERINE MD Unavailable Unavailable HUICarolina CATHERINE MD Unavailable Unavailable HUICarolina CATHERINE MD Unavailable Unavailable Carolina AMES MD Unavailable Unavailable HUICarolina CATHERINE MD Unavailable Unavailable HUICarolina EDMONDS MD Unavailable Unavailable HUICarolina CATHERINE MD Unavailable Unavailable Carolina AMES MD Unavailable Unavailable Carolina AMES MD Unavailable Unavailable HUICarolina CATHERINE MD Unavailable Unavailable Carolina AMES MD Unavailable Unavailable Carolina AMES MD Unavailable Unavailable Carolina AMES MD Unavailable Unavailable Carolina AMES MD Unavailable Unavailable Carolina AMES MD Unavailable Unavailable Carolina AEMS MD Unavailable Unavailable Carolina AMES MD Unavailable Unavailable Carolina AEMS MD Unavailable Unavailable Carolina AMES MD Unavailable Unavailable Carolina AMES MD Unavailable Unavailable Carolina AMES MD Unavailable Unavailable Carolina AMES MD Unavailable Unavailable Carolina AMES MD Unavailable Unavailable Carolina AMES MD Unavailable Unavailable Jessica Jara MD Unavailable Unavailable Jessica Jara MD Unavailable Unavailable Jessica Jara MD Unavailable Unavailable Jessica Jara MD Unavailable Unavailable Jessica Jara MD Unavailable Unavailable Jessica Jara MD Unavailable Unavailable Jessica Jara MD Unavailable Unavailable Jessica Jara MD Unavailable Unavailable Jessica Jara MD Unavailable Unavailable Jessica Jara MD Unavailable Unavailable Jessica Jara MD Unavailable Unavailable Jessica Jara MD Unavailable Unavailable Jessica Jara MD Unavailable Unavailable Jessica Jara MD Unavailable Unavailable Jessica Jara MD Unavailable Unavailable Jessica Jara MD Unavailable Unavailable Jessica Jara MD Unavailable Unavailable Jessica Jara MD Unavailable Unavailable Estefani, Jessica MD Unavailable Unavailable Estefani, Jessica MD Unavailable Unavailable Estefani, Jessica MD Unavailable Unavailable Estefani, Jessica MD Unavailable Unavailable Estefani, Jessica MD Unavailable Unavailable Estefani, Jessica MD Unavailable Unavailable Estefani, Jessica MD Unavailable Unavailable Estefani, Jessica MD Unavailable Unavailable Estefani, Jessica MD Unavailable Unavailable Estefani, Jessica MD Unavailable Unavailable Estefani, Jessica MD Unavailable Unavailable Estefani, Jessica MD Unavailable Unavailable Estefani, Jessica MD Unavailable Unavailable Estefani, Jessica MD Unavailable Unavailable Estefani, Jessica MD Unavailable Unavailable Estefani, Jessica MD Unavailable Unavailable Candido MITCHELL Unavailable Unavailable [facility] [place] MD Unavailable Unavailable [facility] [place] MD Unavailable Unavailable [facility] [place] MD Unavailable Unavailable [facility] [place] MD Unavailable Unavailable [facility] MD Unavailable Unavailable [facility] MD Unavailable Unavailable [facility] MD Unavailable Unavailable [facility] MD Unavailable Unavailable [facility] MD Unavailable Unavailable [facility] MD Unavailable Unavailable [facility] MD Unavailable Unavailable [facility] MD Unavailable Unavailable [facility] MD Unavailable Unavailable [facility] MD Unavailable Unavailable [place] MD Unavailable Unavailable [place] MD Unavailable Unavailable [facility] [place] MD Unavailable Unavailable [facility] [place] MD Unavailable Unavailable [facility] [place] MD Unavailable Unavailable [facility] [place] MD Unavailable Unavailable [facility] [place] MD Unavailable Unavailable [facility] [place] MD Unavailable Unavailable [facility] MD Unavailable Unavailable [facility] MD Unavailable Unavailable [facility] [place] MD Unavailable Unavailable [facility] [place] MD Unavailable Unavailable [place] MD Unavailable Unavailable [place] MD Unavailable Unavailable [place] MD Unavailable Unavailable [place] MD Unavailable Unavailable [place] MD Unavailable Unavailable [place] MD Unavailable Unavailable [place] MD Unavailable Unavailable [place] MD Unavailable Unavailable [place] MD Unavailable Unavailable [place] MD Unavailable Unavailable [place] MD Unavailable Unavailable [place] MD Unavailable Unavailable [place] MD Unavailable Unavailable [place] MD Unavailable Unavailable [facility] [place] MD Unavailable Unavailable [facility] [place] MD Unavailable Unavailable [facility] [place] MD Unavailable Unavailable [facility] MD Unavailable Unavailable [facility] [place] MD Unavailable Unavailable [facility] MD Unavailable Unavailable [facility] MD Unavailable Unavailable [facility] MD Unavailable Unavailable [facility] MD Unavailable Unavailable [facility] [place] MD Unavailable Unavailable [facility] MD Unavailable Unavailable [facility] [place] MD Unavailable Unavailable [facility] [place] MD Unavailable Unavailable [facility] [place] MD Unavailable Unavailable [facility] MD Unavailable Unavailable [facility] MD Unavailable Unavailable [facility] MD Unavailable Unavailable [facility] MD Unavailable Unavailable [facility] MD Unavailable Unavailable [facility] MD Unavailable Unavailable [facility] MD Unavailable Unavailable [facility] MD Unavailable Unavailable [facility] MD Unavailable Unavailable [facility] MD Unavailable Unavailable [facility] MD Unavailable Unavailable Nikki Mckenzie ESL TEACHER ESL TEACHER Unavailable Unavailable Tom Perla MD Unavailable Unavailable Tom Perla MD Unavailable Unavailable Tom Perla MD Unavailable Unavailable Tom Perla MD Unavailable Unavailable Tom Perla MD Unavailable Unavailable Tom Perla MD Unavailable Unavailable Tom Perla MD Unavailable Unavailable Tom Perla MD Unavailable Unavailable Tom Perla MD Unavailable Unavailable Tmo Perla MD Unavailable Unavailable Tom Perla MD Unavailable Unavailable Tom Perla MD Unavailable Unavailable Tom Perla MD Unavailable Unavailable Tom Perla MD Unavailable Unavailable Tom Perla MD Unavailable Unavailable Tom Perla MD Unavailable Unavailable Tom Perla MD Unavailable Unavailable Tom Pelra MD Unavailable Unavailable Tom Perla MD Unavailable Unavailable Tom Perla MD Unavailable Unavailable Tom Perla MD Unavailable Unavailable Tom Perla MD Unavailable Unavailable Tom Perla MD Unavailable Unavailable Tom Perla MD Unavailable Unavailable Tom Perla MD Unavailable Unavailable Tom Perla MD Unavailable Unavailable Tom Perla MD Unavailable Unavailable Tom Perla MD Unavailable Unavailable Perla, Tom Catalan MD Unavailable Unavailable Perla, Tom Catalan MD Unavailable Unavailable Perla, Tom Catalan MD Unavailable Unavailable Perla, Tom Catalan MD Unavailable Unavailable Perla, Tom Catalan MD Unavailable Unavailable Perla, Tom Catalan MD Unavailable Unavailable Perla, Tom Catalan MD Unavailable Unavailable Perla, Tom Catalan MD Unavailable Unavailable Perla, Tom Catalan MD Unavailable Unavailable Perla, Tom Catalan MD Unavailable Unavailable Perla, Tom Catalan MD Unavailable Unavailable Perla, Tom Catalan MD Unavailable Unavailable Perla, Tom Catalan MD Unavailable Unavailable Perla, Tom Catalan MD Unavailable Unavailable Perla, Tom Catalan MD Unavailable Unavailable Perla, Tom Catalan MD Unavailable Unavailable Perla, Tom Catalan MD Unavailable Unavailable Perla, Tom Catalan MD Unavailable Unavailable Perla, Tom Catalan MD Unavailable Unavailable Perla, Tom Catalan MD Unavailable Unavailable Perla, Tom Catalan MD Unavailable Unavailable Perla, Tom Catalan MD Unavailable Unavailable Perla, Tom Catalan MD Unavailable Unavailable Jnoah, A Nikki ESL TEACHER Unavailable Unavailable Jonah, A Nikki ESL TEACHER Unavailable Unavailable Jonah, A Nikki ESL TEACHER Unavailable Unavailable Jonah, A Nikki ESL TEACHER Unavailable Unavailable Jonah, A Nikki ESL TEACHER Unavailable Unavailable Jonah, A Nikki ESL TEACHER Unavailable Unavailable Jonah, A Nikki ESL TEACHER Unavailable Unavailable Jonah, A Nikki ESL TEACHER Unavailable Unavailable Jonah, A Nikki ESL TEACHER Unavailable Unavailable Jonah, A Nikki ESL TEACHER Unavailable Unavailable Jonah, A Nikki ESL TEACHER Unavailable Unavailable Jonah, A Nikki ESL TEACHER Unavailable Unavailable Jonah, A Nikki ESL TEACHER Unavailable Unavailable Jonah, A Nikki ESL TEACHER Unavailable Unavailable Jonah, A Nikki ESL TEACHER Unavailable Unavailable Jonah, A Nikki ESL TEACHER Unavailable Unavailable Jonah, A Nikki ESL TEACHER Unavailable Unavailable Jonah, A Nikki ESL TEACHER Unavailable Unavailable Jonah, A Nikki ESL TEACHER Unavailable Unavailable Jonah, A Nikki ESL TEACHER Unavailable Unavailable Jonah, A Nikki ESL TEACHER Unavailable Unavailable Jonah, A Nikki ESL TEACHER Unavailable Unavailable Jonah, A Nikki ESL TEACHER Unavailable Unavailable Jonah, A Nikki ESL TEACHER Unavailable Unavailable Jonah, A Nikki ESL TEACHER Unavailable Unavailable Jonah, A Nikki ESL TEACHER Unavailable Unavailable Jonah, A Nikki ESL TEACHER Unavailable Unavailable Geloff, A Anuradha Unavailable Unavailable Geloff, A Anuradha Unavailable Unavailable Geloff, A Anuradha Unavailable Unavailable Geloff, A Anuradha Unavailable Unavailable Geloff, A Anuradha Unavailable Unavailable Geloff, A Anuradha Unavailable Unavailable Geloff, A Anuradha Unavailable Unavailable Geloff, A Anuradha Unavailable Unavailable Re-disclosure Warning The records that you are about to access may contain information from federally-assisted alcohol or drug abuse programs. If such information is present, then the following federally mandated warning applies: This information has been disclosed to you from records protected by federal confidentiality rules (42 CFR part 2). The federal rules prohibit you from making any further disclosure of this information unless further disclosure is expressly permitted by the written consent of the person to whom it pertains or as otherwise permitted by 42 CFR part 2. A general authorization for the release of medical or other information is NOT sufficient for this purpose. The Federal rules restrict any use of the information to criminally investigate or prosecute any alcohol or drug abuse patient.The records that you are about to access may contain highly sensitive health information, the redisclosure of which is protected by Article 27-F of the [facility] [facility] Public Health law. If you continue you may have access to information: Regarding HIV / AIDS; Provided by facilities licensed or operated by the [facility] Office of Mental Health; or Provided by the [facility] Office for People With Developmental Disabilities. If such information is present, then the following [facility] mandated warning applies: This information has been disclosed to you from confidential records which are protected by state law. State law prohibits you from making any further disclosure of this information without the specific written consent of the person to whom it pertains, or as otherwise permitted by law. Any unauthorized further disclosure in violation of state law may result in a fine or custodial sentence or both. A general authorization for the release of medical or other information is NOT sufficient authorization for further disc losure. Family History Family Member Name Family Member Gender Family Member Status Date o f Status Description Data Source(s) Unknown Unknown Problem MEDENT ([facility] Encounters Encounter Providers Location Date Indications Data Source(s ) Outpatient Attender: GABRIELLA GAMA 02/20/2021 12:00:[address] [facility] Outpatient Attender: PILY SANDERS 11/19/2020 12:00:00 AM [facility] Cesar Lentz MD: [address] [place] [address] [phone], Ph. Attender: Cesar Lentz MD [facility] Medical 09/25/2020 12:00:00 AM EST CYNDI ([facility]) Outpatient Attender: MICHAEL RODRIGUEZ FP 09/02/2020 05:15:00 P M EDT [facility] Outpatient Attender: GABRIELLA GAMA [id number] 08/19/2020 1 2:00:00 AM EDT Type 1 diabetes mellitus with hyperglycemia [facility] Type 1 diabetes mellitus with hyperglyce oneil Outpatient Attender: Jessica Jara MD 08/19/2020 12:00:00 A M EDT [facility] Outpatient Attender: Nikki RODRIGUEZ FP 08/03/2020 04:3 7:01 PM EDT [facility] Outpatient Attender: MICHAEL RODRIGUEZ FP 08/03/2020 04:36:59 P M EDT [facility] Outpatient Attender: Nikki RODRIGUEZ FP 08/03/2020 01:3 5:02 PM EDT [facility] Outpatient Attender: MICHAEL RODRIGUEZ FP 08/03/2020 01:35:01 P M EDT [facility] Outpatient Attender: Nikki RODRIGUEZ FP 08/03/2020 01:3 4:03 PM EDT [facility] Outpatient Attender: MICHAEL JACQUES 08/03/2020 01:34:02 P M EDT [facility] Outpatient Attender: MICHAEL JACQUES 06/24/2020 11:41:59 A M EDT [facility] Outpatient Attender: MICHAEL JACQUES 06/24/2020 11:07:01 A M EDT [facility] Outpatient Attender: Nikki JACQUES 06/22/2020 11:3 5:01 PM EDT [facility] Outpatient Attender: GABRIELLA GAMA [id number] 06/17/2020 1 2:00:00 AM T [facility] Outpatient Attender: MICHAEL JACQUES 06/16/2020 10:41:00 A M EDT [facility] Outpatient Attender: Roscoe Sutton/Uzma/Ottoniel/Destiny cheema 06/16/2020 09:05:00 AM EDT MEDENT ([facility], ) Outpatient Attender: MICHAEL JACQUES 06/06/2020 10:29:00 A M EDT [facility] Outpatient Attender: Hayley Sutton/Austin/Ottoniel/Hemal ndl 06/02/2020 01:23:00 AM EDT MEDENT ([facility]) Outpatient Attender: Hayley Sutton/Austin/Ottoniel/Hemal ndl 06/01/2020 01:23:00 AM EDT MEDENT ([facility]) Outpatient Attender: Hayley Sutton/Austin/Ottoniel/Hemal ndl 05/31/2020 01:23:00 AM EDT MED[facility] ([facility]) Outpatient Attender: Hayley Sutton/Austin/Ottoniel/Hemal ndl 05/30/2020 01:23:00 AM EDT MED[facility] ([facility]) Outpatient Attender: Hayley Sutton/Austin/Ottoniel/Hemal ndl 05/29/2020 01:23:00 AM EDT MED[facility] ([facility]) Outpatient Attender: Hayley Sutton/Austin/Ottoniel/Hemal ndl 05/28/2020 01:23:00 AM EDT MED[facility] ([facility]) Outpatient Attender: Hossein Sutton/Austin/Ottoniel/R eindl 05/27/2020 01:23:00 AM EDT MED[facility] ([facility]) Outpatient Attender: Hossein Sutton/Austin/Ottoniel/R eindl 05/26/2020 01:23:00 AM EDT MEDENT ([facility]) Outpatient Attender: GABRIELLA ORDONEZ XXEGJOSA 05/15/2020 11:12:[address] [facility] Outpatient Attender: GABRIELLA Padillaender: Anuradha escobedo XXEGJOSA 05/14/2020 12:00:00 AM EDT - 05/14/2020 10:07:41 AM EDT Type 1 diabetes mellitus with hyperglycemia [facility] Type 1 diabetes mellitus with hyperglyce oneil Outpatient Attender: Nikki RODRIGUEZ FP 05/11/2020 11:5 4:01 PM EDT [facility] Outpatient Attender: MICHAEL RODRIGUEZ FP 05/11/2020 11:54:00 P M EDT [facility] Outpatient Attender: MICHAEL GAGEP FP 05/11/2020 11:53:02 P M EDT [facility] Outpatient Attender: Nikki RODRIGUEZ FP 05/11/2020 11:5 3:02 PM EDT [facility] Outpatient Attender: MICHAEL RODRIGUEZ FP 05/09/2020 10:53:00 A M EDT [facility] Outpatient Attender: MICHAEL RODRIGUEZ FP 05/08/2020 01:53:02 P M EDT [facility] Outpatient Attender: Nikki RODRIGUEZ FP 05/08/2020 01:5 3:01 PM EDT [facility] Outpatient Attender: MICHAEL RODRIGUEZ FP 05/08/2020 01:52:02 P M EDT [facility] Outpatient Attender: Nikki RODRIGUEZ FP 05/08/2020 01:5 2:01 PM EDT [facility] Outpatient Attender: MICHAEL GAGEP FP 05/08/2020 01:51:02 P M EDT [facility] Outpatient Attender: Nikki RODRIGUEZ FP 05/08/2020 01:5 1:01 PM EDT [facility] Outpatient Attender: Josie merino 05/06/2020 11:30:00 AM EDT MED[facility] ([facility] Outpatient Attender: Nikki RODRIGUEZ FP 05/03/2020 01:1 4:01 PM EDT [facility] Outpatient Attender: MICHAEL RODRIGUEZ FP 05/03/2020 01:13:59 P M EDT [facility] Outpatient Attender: Nikki RODRIGUEZ FP 03/30/2020 08:3 1:00 PM EDT [facility] Outpatient Attender: MICHAEL RODRIGUEZ FP 03/25/2020 11:56:02 A M EDT [facility] Outpatient Attender: MICHAEL RODRIGUEZ FP 03/19/2020 12:41:01 P M EDT [facility] Outpatient Attender: MICHAEL RODRIGUEZ FP 03/18/2020 02:24:02 P M EDT [facility] Outpatient Attender: Nikki RODRIGUEZ FP 03/18/2020 02:2 4:01 PM EDT [facility] Outpatient Attender: MICHAEL RODRIGUEZ FP 03/18/2020 11:13:00 A M EDT [facility] Outpatient Attender: MICHAEL RODRIGUEZ FP 03/18/2020 08:44:00 A M EDT [facility] Outpatient Attender: Nikki RODRIGUEZ FP 03/18/2020 08:1 7:00 AM EDT [facility] Outpatient Attender: Nikki RODRIGUEZ FP 03/18/2020 08:1 6:02 AM EDT [facility] Outpatient Attender: MICHAEL RODRIGUEZ FP 03/18/2020 08:11:01 A M EDT [facility] Outpatient Attender: MICHAEL RODRIGUEZ FP 03/18/2020 07:59:00 A M EDT [facility] Outpatient Attender: MICHAEL GAGEP FP 03/17/2020 11:53:08 A M EDT [facility] Outpatient Attender: SAAD AMES MD 03/10/2020 12:00 :[address] [facility] Outpatient Attender: GABRIELLA RICHARDSONttender: Anuradha escobedo 02/11/2020 12:00:[address] [facility] Outpatient Attender: MICHAEL RODRIGUEZ FP 01/10/2020 02:48:00 P M EST [facility] Outpatient Attender: Nikki RODRIGUEZ FP 01/10/2020 02:4 8:00 PM EST [facility] Outpatient Attender: KAYLIN cunningham 01/08/2020 04:25:00 PM EST MEDENT ([facility]) Outpatient Attender: MICHAEL RODRIGUEZ FP 12/25/2019 12:24:01 P M EST [facility] Outpatient Attender: MICHAEL RODRIGUEZ FP 12/25/2019 12:23:01 P M EST [facility] Outpatient Attender: Nikki RODRIGUEZ FP 12/25/2019 09:4 7:01 AM EST [facility] Outpatient Attender: MICHAEL RODRIGUEZ FP 12/25/2019 09:06:08 A M EST [facility] Outpatient Attender: MICHAEL Mckenzie ESL TEACHER FP 12/25/2019 08:10:03 A M EST [facility] Outpatient Attender: MICHAEL Mckenzie ESL TEACHER FP 12/25/2019 08:07:00 A M EST [facility] Outpatient Attender: MICHAEL Mckenzie ESL TEACHER FP 12/22/2019 11:34:00 A M EST [facility] Outpatient Attender: Nikki Mckenzie ESL TEACHER FP 12/22/2019 11:3 2:59 AM EST [facility] Outpatient Attender: MICHAEL Mckenzie ESL TEACHER FP 12/21/2019 02:09:00 P M [facility] [address] [place] [address] 12/20/2019 12:00:00 AM EST eCW1 ([facility]) Outpatient Attender: GABRIELLA GAMA [id number] 12:00:00 AM EST - 10/29/2019 10:27:40 AM EST Type 1 diabetes mellitus with hyperglycemia [facility] Type 1 diabetes mellitus with hyperglyce oneil Outpatient Attender: ROMINA MITCHELLReferrer: GABRIELLA GAMA [id number] 10/29/2019 12:00:00 AM EST - 10/29/2019 10:28:07 AM EST [facility] DM Outpatient Referrer: Katie Claire MD 10/25/2019 10:00:00 PM E [facility] Outpatient Attender: LOU gomez 10/22/2019 08:40:00 AM EST MEDENT ([facility]) Immunizations Vaccine Date Status Description Data Source(s) New in 2011. IIV4 09/25/2020 02:34:00 PM EST completed 0.5 mL [facility]ND[facility] ([facility]) Medications Medication Brand Name Start Date Product Form Dose Route Admi nistrative Instructions Pharmacy Instructions Status Indications Reaction Description Data Source(s) 5 ML Syringes 07/11/2020 12:00:00 AM EDT acti ve MEDENT ([facility], ) Adhes[place] [id number] 07/02/2020 12:00:00 AM EDT 1 {each} Topical active Type 1 diabetes mellitus with hyperg lycemia Apply 1 each topically once a week [facility] Type 1 diabetes mellitus with hyperglyce oneil Dexcom G6 Instrument And Electrical Technician Device [id number] 07/02/2020 12:00:00 AM EDT active Type 1 diabetes mellitus with hyperglycemia GABRIELA Y DIRECTED [facility] Type 1 diabetes mellitus with hyperglyce oneil Dexcom G6 Sensor [id number] 07/02/2020 12:00:00 AM EDT 1 {each} Does not apply active Type 1 diabetes mellitus with hyperg lycemia 1 each by Does not apply route every 7 (seven) days [facility] Type 1 diabetes mellitus with hyperglyce oneil Dexcom G6 Transmitter [id number] 07/02/2020 12:00:00 AM EDT active Type 1 diabetes mellitus with hyperglycemia DAILY DIRECTE D [facility] Type 1 diabetes mellitus with hyperglyce oneil Isopropyl Alcohol 0.7 ML/ML Medicated Pad Alcohol Pads 70 % Pad Alcohol Pads 70 % Pad 07/02/2020 12:00:00 AM EDT 1 {each} Topical acti ve Type 1 diabetes mellitus with hyperglycemia Apply 1 each topically daily as needed [facility] Type 1 diabetes mellitus with hyperglyce oneil Skin Prep Wipes [id number] 07/02/2020 12:00:00 AM EDT active Type 1 diabetes mellitus with hyperglycemia Use as directed. Use weekly as directed. Dx E10.65 [facility] Type 1 diabetes mellitus with hyperglyce oneil Tegaderm Film 4"x4-3/4" 4743-8196-33 07/02/2020 12:00:00 AM EDT active Type 1 diabetes mellitus with hyperglycemia GABRIELA Y DIRECTED [facility] Type 1 diabetes mellitus with hyperglyce oneil 2.5 ML Sodium Chloride 9 MG/ML Prefilled Syringe Normal Sali ne Flush 07/01/2020 12:00:00 AM EDT active M EDENT ([facility]) Ondansetron 4 MG Oral Tablet Ondansetron HCl 4 MG Oral Tablet (ZOFRAN) Ondansetron HCl 4 MG Oral Tablet (ZOFRAN) 05/06/2020 12:00:00 AM EDT active TK 1 T PO Q 6 H [facility] Insulin Degludec 100 UNIT/ML Subcutaneou s Solution Pen-injector (Tresiba FlexTouch) [id number] 04/01/2020 12:00:00 AM EDT active Type 1 diabetes mellitus with hyperglycemia Inject 17 units in the mor doreen and 17 units in the evening as directed. MDD 58 units with priming and titration [facility] Type 1 diabetes mellitus with hyperglyce [facility] atorvastatin 40 MG Oral Tablet Atorvastatin Calcium 40 MG Oral Tablet (LIPITOR) Atorvastatin Calcium 40 MG Oral Tablet (LIPITOR) 03/25/2020 12:00:00 AM EDT active TK 1 T PO QHS [facility] Ondansetron 4 MG Disintegrating Oral Tablet Ondansetron 01/08/2020 12:00:00 AM EST completed MEDENT ([facility]) Cholecalciferol 2000 UNT Oral Tablet Vitamin D 50 MCG (1999 UT) Oral Tablet Vitamin D 50 MCG (1999 UT) Oral Tablet 11/23/2019 12:00:00 AM EST 2 000 U Oral aborted Take 2,000 Units by mouth daily [facility] Ergocalciferol 16449 UNT Oral Capsule Er gocalciferol 1.25 MG (98059 UT) Oral Capsule (ERGOCALCIFEROL) Ergocalciferol 1.25 MG (19928 UT) Oral C apsule (ERGOCALCIFEROL) 11/23/2019 12:00:00 AM EST 67676 U Oral active Take 1 capsule by mouth once a week For 8 weeks only. [facility] [employer] Ultra Blue In Vitro Strip 57876-017-01 10/30/2019 12:00:00 A M EST active Type 1 diabetes mellitus with hyperg lycemia USE TO CHECK BLOOD GLUCOSE 6 TIMES DAILY. Dx E 10.65 [facility] Type 1 diabetes mellitus with hyperglyce oneil [employer] Ultra 2 w/Device Kit 86744-292-67 10/29/2019 12:00:00 AM EST active Use as directed. Use to check gl ucose 8 times daily. Dx: E10.65 [facility] Glucagon 3 MG/DOSE Nasal Powder (BAQSIMI ONE PACK) [id number] 10/29/2019 12:00:00 AM EST active [place] 3m g in one nostril to treat severe hypoglycemia. Dx E10.65 . [facility] Prednisone 20 MG Oral Tablet Prednisone 10/22/2019 12:00:00 AM EST ORAL completed MEDENT ([facility]) Prednisone 20 MG Oral Tablet predniSONE 20 MG Oral Tab let (DELTASONE) predniSONE 20 MG Oral Tablet (DELTASONE) 10/22/2019 12:00:00 AM EST aborted TK 2 TS PO D FOR 4 DAYS [facility] Insulin, Aspart, Human 100 UNT/ML Inject able Solution insulin aspart (NOVOLOG) 100 UNIT/ML vial insulin aspart (NOVOLOG) 100 UNIT/ML vial 04/03/2019 1 2:00:00 AM EDT active Type 1 diabetes mellitus with hyperglycemia Inject as per sliding scale. MDD- 95 units with titration. Dx: E10.65 [facility] Type 1 diabetes mellitus with hyperglyce oneil Ergocalciferol 38449 UNT Oral Capsule er gocalciferol (ERGOCALCIFEROL) 95884 units capsule ergocalciferol (ERGOCALCIFEROL) 19161 units capsule 12:00:00 AM EDT 46603 U Oral active Take 1 capsule by mouth once a week [facility] Lisinopril 5 MG Oral Tablet lisinopril (PRINIVIL,ZESTR IL) 5 MG tablet lisinopril (PRINIVIL,ZESTRIL) 5 MG tablet 02/12/2019 12:00:00 AM EDT 5 mg Or al aborted Persistent proteinuria Take 1 tablet by mouth da [facility] Persistent proteinuria ONE TOUCH ULTRA TEST test strip [id number] 02/06/2019 12:00:00 AM EDT aborted Type 1 diabetes mellitus with hyperglycemia Use as directed to check blood glucose 6 times daily. Dx E10.65 [facility] Type 1 diabetes mellitus with hyperglyce oneil Insurance Providers Payer name Policy type / Coverage type Policy ID Covered democrat ID 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 Policy Laird Plan Information [facility] [id number] SP [id number] [facility] [id number] Self [id number] [facility] [id number] SP [id number] [facility] P [id number] S [id number] [facility] O [id number] S [id number] ANSI-Not a Secondary Insurance [id number] [facility] [id number] SP [id number] [employer] BCYO S [id number] S [facility] [id number] [place] 121/621 [id number] SP [id number] CAROL [id number] SP [id number] [place] 121/621 [id number] SP [id number] BCBS/Blue Card Commercial [id number] Self M [id number] BCBS GENERIC C [id number] Self [id number] [employer] BCYO P [id number] S [facility] [id number] ANSI-Commercial [id number] BCBS/Blue Card Commercial [id number] Self M [id number] BCBS/Blue Card Commercial [id number] Self M [id number] BCBS/Blue Card Commercial [id number] Self M [id number] BCBS EXCE[place] [id number] S MCQ [id number] BCBS OF [place] [id number] SP [id number] BCBS [place] PPO 302/307 [id number] SP [id number] BCBS FEDERAL EMPLOYEE PROGRAM [id number] SP [id number] SELF PAY ONLY [id number] SP [id number] BCBS GENERIC C [id number] Self [id number] SELF PAY ONLY [id number] SP MCQ [id number] SELF PAY ONLY - SP1 SP [employer] [place] 121/621 [id number] SP [id number] BCBS/Blue Card Commercial [id number] Self M [id number] EXCELLUS BCBS [id number] Sunitha MCQ [id number] BCBS/Blue Card Commercial [id number] Self M [id number] EXCELLUS BCBS B [id number] S MCQ [id number] [employer] Blue Cross Commercial [id number] Self [id number] [employer] Blue [employer] Commercial [id number] Self [id number] [employer] 121/621 [id number] SP [id number] [employer] Blue [employer] Commercial Self [employer] BCBS Health Maintenance Organization (HMO) Self BCBS [place] PPO 302/307 [id number] SP [id number] BCBS GENERIC C [id number] Self MCQM [id number] BS [place] Commercial Self BCBS [place] 121/621 [id number] SP [id number] BCBS [place] PPO 302/307 [id number] SP [id number] SELF PAY UNAVAILABLE SP UNAVAILA BLE BERNICE HARPwoohoo mobile marketing WORKER COMP [id number] SP [id number] BERNICE [employer]woohoo mobile marketing WORKER COMP [id number] SP [id number] BCBS OF [place] 370/870 UNAVAILABLE SP UNAVAILABLE COMBINED LIFE [place] [id number] SP [id number] GHI FAMILY HLTH PLUS [id number] SP [id number] GHI FAMILY HLTH PLUS [id number] SP [id number] MEDICAID [id number] SP [id number] HMO BLUE [id number] SP [id number] HMO BLUE [id number] SP [id number] O BLUE [id number] SP [id number] COMPSYCH [id number] SP [id number] Problems, Conditions, and Diagnoses Code Display Name Description Problem Type Effective Dates Data Source(s) 62224551 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 12:00:00 AM EST CYNDI ([facility]) Z93.0 Tracheostomy status Tracheostomy status 020 11:41:50 AM EDT [facility] [id number] Respiratory finding Respiratory Finding Problem 0 06/24/2020 12:00:00 AM EDT CYNDI ([facility]) V65.8 Person consulting for explanation of exa mination or test findings Person consulting for explanation of examination or test findings 03/25/2020 11:55:29 AM EDT [facility] 401.9 Essential hypertension Essential hypertension 03/25/2020 11:55:29 AM EDT [facility] 268.9 vitamin D deficiency vitamin D deficiency 03/25 11:55:29 AM EDT [facility] [id number] Patient asked to attend Patient Asked to Attend Proble m 03/25/2020 12:00:00 AM EDT [facility]ND[facility] ([facility]) [id number] Hypertensive disorder Hypertensive Disorder Problem 03/25/2020 12:00:00 AM EDT CYNDI ([facility]) 34751022 Vitamin D deficiency Vitamin D Deficiency Problem 03/25/2020 12:00:00 AM EDT CYNDI ([facility]) 784.0 Headache Headache 12/25/2019 09:04:35 AM [facility] [id number] Hyperlipidemia, unspecified Hyperlipidemia, unspecifie d 12/25/2019 09:04:35 AM EST [facility] [id number] Headache Headache Problem 12/25/2019 12:00:00 AM [place] [facility] ([facility]) [id number] Hyperlipidemia Hyperlipidemia Problem 12/25/2019 12:00: 00 AM EST CYNDI ([facility]) E10.649 Type 1 diabetes mellitus with hypoglycem ia without coma Type 1 diabetes mellitus with hypoglycemia without coma Diagnosis 11/01/2019 03:39:08 PM [facility] DM DM Diagnosis 10/29/2019 08:59:35 AM [facility] Surgeries/Procedures Procedure Description Date Indications Data Source(s) Bronchoscopy, Rigid Or Flex, Diagnostic W/W/O Cell Washing 06/03/2020 12:00:00 AM EDT MEDENT ([facility]) Insertion Of Non-Tunneled Centrally Inserted Central Venous Kellie 05/27/2020 12:00:00 AM EDT MEDENT ([facility]) INSJ PRPH CVC W/O SUBQ PORT/COMMERCIAL APPRAISER AGE 7 YR/> 05/26/2020 12:00:00 AM EDT MEDENT ([facility]) MICROSOMAL ANTIBODIES EACH THYROID PEROXIDASE ANTIBODY Routine 10/29/2019 10:41 AM EST Type 1 diabetes mellitus with hyperglycemia 10/29/2019 03:41 :00 PM EST Type 1 diabetes mellitus with hyperglycemia [facility] Type 1 diabetes mellitus with hyperglyce oneil IMMUNOASSAY ANALYTE QUAL/SEMIQUAL MULTIPLE STEP CELIAC PANEL Routine 10/29/2019 10:41 AM EST Type 1 diabetes mellitus with hyperglycemia 10/29/2019 03:41 :00 PM EST Type 1 diabetes mellitus with hyperglycemia [facility] Type 1 diabetes mellitus with hyperglyce oneil 25 HYDROXY INCLUDES FRACTIONS IF PERFORMED VITAMIN D 25 HYDROXY , TOTAL Routine 10/29/2019 10:41 AM EST Type 1 diabetes mellitus with hyperglycemia Vitamin D deficiency 10/29/2019 03:41:00 PM EST Vitamin D de ficiencyType 1 diabetes mellitus with hyperglycemia [facility] Vitamin D deficiency Type 1 diabetes mellitus with hyperglyce [facility] THYROID STIMULATING HORMONE TSH TSH Routine 10/29/20 10:41 AM EST Type 1 diabetes mellitus with hyperglycemia 10/29/2019 03:41 :00 PM EST Type 1 diabetes mellitus with hyperglycemia [facility] Type 1 diabetes mellitus with hyperglyce [facility] THYROXINE FREE T4, FREE Routine 10/29/2019 10:41 AM EST Type 1 diabetes mellitus with hyperglycemia 10/29/2019 03:41 :00 PM EST Type 1 diabetes mellitus with hyperglycemia [facility] Type 1 diabetes mellitus with hyperglyce oneil LIPID PANEL LIPID PANEL Routine 10/29/2019 10:41 AM EST Type 1 diabetes mellitus with hyperglycemia Mixed hyperlipidemia 10/29/2019 03:41:00 PM EST Mixed hyperl ipidemiaType 1 diabetes mellitus with hyperglycemia [facility] Mixed hyperlipidemia Type 1 diabetes mellitus with hyperglyce [facility] GLUCOSE QUANTITATIVE BLOOD XCPT REAGENT STRIP POCT GLUCOSE, DOC KED Routine 10/29/2019 8:58 AM EST 10/29/2019 01:58:00 PM EST [facility] HEMOGLOBIN GLYCOSYLATED A1C POCT HEMOGLOBIN A1C, DOCKED Routine 10/29/2019 8:55 AM EST 10/29/2019 01:55:00 PM EST [facility] Results ID Date Data Source [id number] 10/01/2020 12:00:00 AM EST [facility] Name Value Range Interpretation Code Description Data Claribel rce(s) Supporting Document(s) SARS coronavirus 2 RNA [Presence] in Res piratory specimen by ANDREE with probe detection [facility] This lab was ordered by Nell Yates and reported by [facility]. ID Date Data Source [id number] 08/19/2020 10:29:50 AM T [facility] Name Value Range Interpretation Code Description Data Claribel rce(s) Supporting Document(s) Progress Note [facility] BBCQEv9vDwPZMsPl37/HBPglFCOdu2NxWEevERu8EYufYYTtT6CsOQN9sW1rYXO3JCjLRkNpQgQuCND8 lbm [file] brand specialist/xwTKZ1DqpidrjbOHJlgsX0H/HMc3HaVO0j70asH eRs0/sc/KJi7G3oNe7vddD7tZ+1woYracqWQu3DwTFlmgSh0MRUgcxpVKO4LNtvB7aonBsH5UFJV80dl Ed0UZnzbZEt6Pc774UQWt6VHmmSN8SUMaiH0egwd8fGgBlafJ8Fk/fpGnJ5t9jfW/hn6CgtcfJ8JhGSa Eh/CUv4ucSlxWvv6ep9f6czofeoAcaNR1wTd4GGI8A r5cC2J0dnedbRkK1nj//xbu79XVVQ13udhjdS69s4YgeXa8pPUi5MltA6N77kTNXdxP77AIf7B5ltB3Z yRpQ9ObGIckqxrWFkKnEFt705D7Va0EVBhvRMr2W6BAHi9laQJ3dYzb97+mscvAWndVboClsfQUvqMXf NKZ4kVIErpGXp47Cuzd6R357s4iaRTLacVmtfPf12w jomzyJGcd0ryq1FsTRfaQbAtbfxdpIgPRjgglXqqga9pfagNjSuy7eu23AmObUhbPFq5fXpOlGRBdnt2 Eq7DkrEnz9d1Xt16hIKgVWP9pS8h/9Ycx5COSJK26uc0t6oe5JeeRWh8L3fQG4Zpn+kvQqSv+nd0zeQR /VtQ0uReLDME2/NcWr+PNovCxNdz+I4nHkDL40wE2P 38VOLsJ0E01ch4WAN6M2wivrEyuK/cjlQbxVas7X7JtZZpkGYCRUlzdVSoeSLNfnbDf8O1vtSjTwwOQ+ 3kK6TK0Z7oudHdm+LVb8+brq+2uhuCm/Pq9G1+gNEOW3W4t/AfM9+fg/Yy3jtD3JRC2ep8QmWHViKPbd bmRvYmoNCjcgMCBvYmoNCiAgPDwNCiAgICAvVHlwZS [file] y/sUZcG/NQW1mS3CosuA5FGavvu5gGCh/wb+Wi [file] P2ONV4wKGvVe7FSHRpEZPZKyRbZO2NZHz= ID Date Data Source [id number] 08/10/2020 12:00:00 AM EDT [facility] Name Value Range Interpretation Code Description Data Claribel rce(s) Supporting Document(s) SARS coronavirus 2 RNA [Presence] in Res piratory specimen by ANDREE with probe detection NYSDOH This lab was ordered by Nell Castillo and reported by [facility]. ID Date Data Source [id number] 06/24/2020 11:10:43 AM EDT [facility] Measurements & CalculationsHeight: 64 inches (5 ft. 4 in.) 162.56 cm Weight: 155 pounds 70.45 kg Body Mass Index (BMI): 26.70BMI Interpretation: OverweightBody Surface Area (BSA): 1.76Weight Management Education Done (Nutrition/Physical Activity)Vital SignsTemperature: 98.1FPulse Rate: 97 beats/minuteRespiratory Rate: 16 respirations/minuteBlood Pressure: 115/83 O2 Saturation: 98% Vital Signs performed by: Nickie Bob MA, June 24, 2020 11:20 AMInitial Intake Information From: patientRoom #: 13Infectious Disease / Travel ScreeningRecent travel for you or any close contacts? NoHave you had any close contact with anyone diagnosed with or under investigation for COVID-19 (coronavirus)? NoFever? NoRespiratory symptoms: cough, cold, congestion, shortness of breath, difficulty breathing? NoLoss of smell? NoLoss of taste? NoSmoking, Tobacco, Vaping or Smoke Exposure StatusSmoke Status: never smokerTobacco Use: NoDo you vape? NoMenstrual HistoryLast Menstrual Period (LMP): 05/12/2020Any possibility of ? NoHealthcare HistorySince your last office visit...Have you been admitted to the hospital? Yes - [facility] dkaHave you been to an emergency room (ER) or urgent care clinic? [facility] date reported today: 06/21/2019Have you seen another healthcare provider? Yes - [facility], woman to woman , dr addison for track care, kidney specialist Have you seen a dentist? Yes - DR Benson performed by: Nickie Bob MA, June 24, 2020 11:13 AMRate Your HealthIn general, would you say your health is? GoodPain AssessmentAre you currently having any pain which... You would like your provider to address? No Affects your activity level? NoDepression Screening - PHQ-2Over the last two weeks, have you... Had little interest or pleasure in doing things? Not at all Been feeling down, depressed, or hopeless? Not at all PHQ-2 Score: 0Anxiety Screening - JOSIE-2Over the last two weeks, have you been... Feeling nervous, anxious, or on edge? Not at all Unable to stop or control worrying? Not at all JOSIE-2 Score: 0Screening, Brief Intervention, & Referral to Treatment (SBIRT)Pre-Screening Questions How many times have you have 4 or more drinks in a day? 0How many times have you used an illegal drug or used a prescription medication for a non-medical reason? 0Performed by: Nickie Bob MA, June 24, 2020 11:14 AMPatient History Surgical History:LEEP tracheostomy 05/28/20ocial/Personal History: Chief ComplaintHD DKA History of Present Illness (HPI)Was seen in the ER 4 days ago for loose stools. They are starting to firm up today. Records are unavailable due to computer issues at [facility] but patient tells me that they did not admit her and that there were no changes made to her care.Has been seeing Olivia and they are working toward getting her sugars under control.Had a trach placed during her hospital stay due to problems maintaining an airway. Has l[facility]zo Pulmonoloigst and he is referring her to a different well tender because there are concerns about her voice.Seeing OT due to generalized weakness due to hospital stay.Has been on liquid diet.Blood sugar this morning 141.HPI performed by: Cesar Lentz MD, June 24, 2020 11:29 AMTransitions of Care InboundProblem ReviewProblem List was reviewed and/or updated during this visit.Medication Reconciliation & ReviewMedication List was reviewed and/or updated during this visit, including review of any wles-hfw-szsvemr medications, herbal therapies, and/or supplements.Allergy R eviewAllergy List was reviewed and/or updated during this visit.Adult Preventive CareProvider Calculated and Reviewed all Clinical Protocols for patient today. Labs/Meds/Other Counseling-Nutrition and Physical Activity:BMI Interpretation: Overweight (06/24/2020) Counseling: Done (06/24/2020) Physical Activity: Done (06/24/2020)Review of Systems General: Denies chills, fever. Cardiovascular: Denies chest pain. Respiratory: Denies shortness of breath. Gastrointestinal: Complains of see HPI, diarrhea. Denies constipation. Genitourinary: Denies pain with urination, urinary frequency, urinary urgency. Physical ExamGeneral Appearance: well nourished, well hydrated, no acute distressRespiratory, Auscultation: clear to auscultation bilaterally; no rales, rhonchi, or wheezesRespiratory, Effort: no intercostal retractions or use of accessory musclesCardiovascular, Auscultation: S1, S2 audible; no murmur, rub, or gallop; RRRGait & Station: normalOrientation: oriented to time, place, and personMood & Affect: no depression, anxiety, or agitationJudgment & Insight: intactCare Management Plan Transitions of CareInboundRate Your HealthIn general, would you say your health is? GoodAssessment & Plan Problems:Added: Tracheostomy status (ICD-V44.0) (SXA43-T77.0) Assessment: Instructions: Recheck with Pulmonology as scheduled.Assessed:Type 1 diabetes mellitus without complications (TNH42-V96.9) Assessment: Instructions: Recheck as scheduled with Olivia.Diarrhea (ICD-787.91) (UUV47-J36.7) Assessment: Instructions: Likely due to liquid diet due to trach. Resolving.Patient Instructions/Care Plan: Type 1 diabetes mellitus without complications: Recheck as scheduled with Olivia.Diarrhea: Likely due to liquid diet due to trach. Resolving.Tracheostomy status: Recheck with Pulmonology as scheduled. Plan developed in collaboration with patient and/or familyMedications:TRESIBA 100 UNIT/ML SUBCUTANEOUS SOLUTIONATORVASTATIN CALCIUM 40 MG ORAL TABLETMULTI FOR HER 50+ OR AL CAPSULELISINOPRIL 10 MG ORAL TABLETVITAMIN D3 ULTRA POTENCY 01884 UNIT ORAL TABLETNOVOLOG 100 UNIT/ML SUBCUTANEOUS SOLUTIONTRESIBA FLEXTOUCH SOLUTION PEN- INJECTORMedication Changes:Added: TRESIBA 100 UNIT/ML SUBCUTANEOUS SOLUTIONRemoved:IMODIUM A-D 2 MG ORAL CAPSULE-Take 2 capsules after the first loose stool and then 1 capsule after each additional loose stool MDD 8mg Qty: 30[Capsule] Refills: 0Allergies:* TREES (Critical)* MOLDS (Critical)Orders:Adult - Ofc Vst, EST, Level III [CPT-61706] Follow-Up Return to clinic: 3 months for follow upMedications:Cancelled IMODIUM A-D 2 MG ORAL CAPSULE (LOPERAMIDE HCL) Take 2 capsules after the first loose stool and then 1 capsule after each additional loose stool MDD 8mg #30[Capsule] x 0 Route:ORAL Entered by: Nickie Bob MA Authorized by: Tara Carmen ANP Method used: [facility] to [facility] (retail) [address] [place] [address] RxID: [id number] signed by Cesar Lentz MD on 06/24/2020 at 11:41 AM Name Value Range Interpretation Code Description Data Claribel rce(s) Supporting Document(s) ID Date Data Source [id number] 06/20/2020 05:59:00 PM EDT [facility]) Name Value Range Interpretation Code Description Data Claribel rce(s) Supporting Document(s) glucose, fasting 91 mg/dL 70-100 normal Glucose, Fasting AT [facility]) glomerular filtration rate > 60.0 >60 normal Glomerula r Filtration Rate [facility]) creatinine for GFR 0.89 mg/dL 0.55-1.30 normal Creatinine for GF R [facility]) blood urea nitrogen 7 mg/dL 7-18 normal Blood Urea Nitro gen [facility]) carbon dioxide level 29 mEq/L 21-32 normal Carbon Dioxide Level [facility] sodium level 142 mEq/L 136-145 normal Sodium Level [facility] ([facility]) anion gap 6 mEq/L 8-16 Below low normal Anion Gap [facility] ( [facility]) chloride level 107 mEq/L 98-107 normal Chloride Level [facility]) potassium serum 4.0 mEq/L 3.5-5.1 normal [facility] bilirubin,total 0.3 mg/dL 0.2-1.0 normal Bilirubin,total [facility] ALT/SGPT 28 U/L 12-78 normal ALT/SGPT [facility] ([facility]) alkaline phosphatase 94 U/L 45-117 normal Alkaline Phosph atase [facility]) AST/SGOT 26 U/L 7-37 normal AST/SGOT [facility] ([facility]) calcium level 9.3 mg/dL 8.5-10.1 normal Calcium Level [facility] ( [facility]) albumin/globulin ratio 1.2-2.2 Below low normal Albumin /globulin Ratio [facility] ([facility]) total protein 6.9 gm/dL 6.4-8.2 normal Total Protein [facility] ( [facility]) albumin 2.9 gm/dL 3.2-5.2 Below low normal Albumin [facility] ( [facility]) ID Date Data Source [id number] 06/20/2020 05:59:00 PM EDT [facility] Name Value Range Interpretation Code Description Data Claribel rce(s) Supporting Document(s) HCT 39.0 % 36.0-47.0 N [facility] HGB 12.6 g/dL 12.0-15.5 N [facility] MCH 32.3 G/DL pg 32.0-36.5 N [facility] MCHC 29.4 PG % 27.0-33.0 N [facility] PLATELETS 223 10 10*3/mm3 150-450 N [facility] RBC 4.29 10 10*6/mm3 4.00-5.40 [facility] RDW 11.9 % 11.5-14.5 N [facility] WBC TOTAL 5.2 4.0-10.0 N [facility] ID Date Data Source [id number] 06/17/2020 01:45:15 PM EDT [facility] Name Value Range Interpretation Code Description Data Claribel rce(s) Supporting Document(s) Progress Note [facility] MFZZTt1vSoXLVjTj81/ODZozLZXjh5FcHVxyLYj4ZRpzYRAbW8BfFNC3yG7gITK6BBgAQfPxHrFlJEG4 lbm [file] AgICAgICAgICAgICAgICAgICAgICAgICAgICAgICAg ICAgICAgICAgICAgICAgICAgICAgICAgICAgICAgICAgICAgICAgICAgICAgICAgICAgICAgICAgICAN CiAgICAgICAgICAgICAgICAgICAgICAgICAgICAgICAgICAgICAgICAgICAgICAgICAgICAgICAgICAg ICAgICAgICAgICAgICAgICAgICAgICAgICAgICAgIC AgICAgICAgICANCiAgICAgICAgICAgICAgICAgICAgICAgICAgICAgICAgICAgICAgICAgICAgICAgIC AgICAgICAgICAgICAgICAgICAgICAgICAgICAgICAgICAgICAgICAgICAgICAgICAgICANCiAgICAgIC AgICAgICAgICAgICAgICAgICAgICAgICAgICAgICAg ICAgICAgICAgICAgICAgICAgICAgICAgICAgICAgICAgICAgICAgICAgICAgICAgICAgICAgICAgICAg ICANCiAgICAgICAgICAgICAgICAgICAgICAgICAgICAgICAgICAgICAgICAgICAgICAgICAgICAgICAg ICAgICAgICAgICAgICAgICAgICAgICAgICAgICAgIC AgICAgICAgICAgICANCiAgICAgICAgICAgICAgICAgICAgICAgICAgICAgICAgICAgICAgICAgICAgIC AgICAgICAgICAgICAgICAgICAgICAgICAgICAgICAgICAgICAgICAgICAgICAgICAgICAgICANCiAgIC AgICAgICAgICAgICAgICAgICAgICAgICAgICAgICAg ICAgICAgICAgICAgICAgICAgICAgICAgICAgICAgICAgICAgICAgICAgICAgICAgICAgICAgICAgICAg ICAgICANCiAgICAgICAgICAgICAgICAgICAgICAgICAgICAgICAgICAgICAgICAgICAgICAgICAgICAg ICAgICAgICAgICAgICAgICAgICAgICAgICAgICAgIC AgICAgICAgICAgICAgICANCiAgICAgICAgICAgICAgICAgICAgICAgICAgICAgICAgICAgICAgICAgIC AgICAgICAgICAgICAgICAgICAgICAgICAgICAgICAgICAgICAgICAgICAgICAgICAgICAgICAgICANCi AgICAgICAgICAgICAgICAgICAgICAgICAgICAgICAg ICAgICAgICAgICAgICAgICAgICAgICAgICAgICAgICAgICAgICAgICAgICAgICAgICAgICAgICAgICAg ICAgICAgICANCjw/hMZeF0aweOMexwV7N9gaPl2UCu5XVT8lw8CcRNZqTQzdulBxOrkSUuDfHLSmFtqL Uns5ZGspZV9GfASbI1SvJ9SlKWjlRU0OASWtBQMveW BvNOYeMDGpIxO2IMHoUFmvTB5SuVKxUPxdFDSdBVYqAbSoRREwOSRvLCOlEFXrUAZCWNAnSSXxSpAbHB MgRGYpZGvkANFVERL0WVRtTaBiSCybLE1Ad4WcxPF8UAn+Yv9PWZ9bz1AlTGdjDfSmWR6kbv1DEFvCEu NgY5KgofU4FHQ0XVPsTj6QADDlQGGwjFEgVgRlKXZH SyFnQ7VvhH56ZAUUKh8+NZidzhFfVxmRNbO9YIFjy3MbIPa6EH7MEWAsGZx9hQVoBKKmG6Fdt2EpIv82 HRDvTkunCVTpgBKqqEGlSgXMsC6iAX6nDHFCWVY8YYywRP3dOYWoZLQaJiBvLYKADS8MZMOoRQOrkKNl ADLlGLTGPB7MTIshLIY3VUEsofMuaMNkWNzaSJ1POV JlbnQgMzYgMCBSDQo+Gb6RCE9gl8TqIJdrBWSbSM6bsk9VXKwRYyNtP2R3uTHtN3R1XPpnNa4ADKCbPO DhTlTaMBLFTAerLH7BBP6zdiR4EA9HcDKrEOHsDZTbaTKoEAt7L37soFZvBEwwBC2UKHS+Geno+Pg0KIC PkZCZtQZDbUyWuUERHTvNhS8EgL4CCz2QrR3AqBS60 aLdzqwExIUovQA1HBV9wHAArDZDNTO0GsJZsgN3hshPmNlDgPDXFInTcW83saVBfADPjWRI6BFXwOm9F NLSwK4QtjuRtgInytfEsPJPjGVSGFM5MOLydrrYkzVZxxMtuHX33qNhcGI7LYo0YYlTaGP4vog5ImRBl Nm9UPQGcQG3WQAKlDVEgTKFbPEP2MHQzAnBoNVvmZH RaDMXhLFS2AVOnOBAqSU0VGoMmREScDyp2KAAbWAZpSRXxsm7MFOCvQDY0RSZvAYDjESBeBKTcOBsdPD VtLGUeAJC2OJNhRUZuFX2CApEwAKVaJEVyYBnxTFYlHJVfbm7SAXFkICYoHIO8QzZiOWRmRAUeIUjyRS MzVYB1XfErDQUqFMDfYE1AXaJwABAgBQx5HJeaYPPo SKCawx3KCUNtOKQiOECyJYGdYHIwGIZwYEvtVUVyJUGoXREqAIToXNMvBA0IYsNpGZDrCLU2AebwIJWt JQRdbu8XEIGoCAUjLUS9AkDsBVVdXCUkGJdbVYCnYWJ6YXH4GSDxZRBsBL0JKjEnZZFzVLQbULKcKQFn FNFnwa8JSNQuNIOwUZE6LSKuPQGeBSSgPBmqDDWjME G2DLM2CWGwVFClDR0RGlJiNHAzYhDsOSUwRNOaTWEdor8WXUOjOSDfKlQ0MUNaPQHdTVZjOFdzNBYpCH EvRTi2QWBqSRLpSX2HQwYpYYLjZwWmCFMuHUDxTWXyey4MNFVqXVEbGFU4GAJpYCMkBYVzTTbzNPHlYT W5KlXxWUFcGRTuYH2UAiCeTRObPbU3DGDkOEGnNBLi hl4VVUHuOYNcOXJiEiMjPGVcPSKfWGkeVWFyXXZ3SrI6ZLQmEXIoKN5EQxKlNIMrFyO1TZVfMPNbOKVi lw6NZSXhJCHqElMjXyUfOUGuFFBpFPotMOShRIX1RkY6GKIkLBYrZV7JLeFcDSVhQde0IRhqYCMkLQAu wa2TJNEjVCZbNKGzZqVxEWZdUBAyFPmeQKJrNLV2Xg TgMRByNICsVK9TZqDzZMOjCvawQLgaDAYvMHMyvi5FZMSiPVSeSXC2UIUpMPErWSNmOCrlRFWpAMP3BP OqDYIkLVEiQL0UJfClWQMpKdf9BYTtBWWcJYVyot1XXNCdFCI3AMU5PZRxWGVnTTHhVBkdUGLgESPxSV N7XNWyGBXqBV1VWrTxEKXmHDF9FSfyNXKkQAEgvu1V mVFrpVjtlt2UVCrOZy0HwAnwZHC4KLalOz5miMGpYXJcORDWGg2SxoIrBNAiZSJFUHdaXBJrDBTuRntn UcbhIANdLqBnDowlR1FzCLYjPTJgAuuuWhztUcT7NUCfPPT2EyU7YvLaJNPfSWYxLnQ8NxH4BNZrMARy OTE+PA5rHHq+Zi1Gh8QsbfM4hkWfMTi0TWvjEZ9BOXVEM1ZWCb== ID Date Data Source [id number] 06/17/2020 08:50:24 AM EDT [facility] In-House Blood TestsDate/Time Colle cted: June 17, 2020 8:50 AMTest Result Reference Range Normal ValueComments: blood drawn right AC PT tolerated well Jey Shoemaker CIRCUIT [employer] CLERK, June 17, 2020 8:51 AMAssessment & Plan Orders:[id number] Vst-Est Level I [CPT-98000] 85134 - Venipuncture [CPT-02838] Name Value Range Interpretation Code Description Data Claribel rce(s) Supporting Document(s) ID Date Data Source [id number] 07/10/2020 07:12:00 PM EDT [facility] 98 178 Name Value Range Interpretation Code Description Data Claribel rce(s) Supporting Document(s) HCT 38.0 % 36.0-47.0 [facility] HGB 12.9 g/dL 12.0-15.5 [facility] MCH 33.9 G/DL pg 32.0-36.5 [facility] MCHC 29.4 PG % 27.0-33.0 [facility] PLATELETS 293 10 10*3/mm3 150-450 [facility] RBC 4.39 10 10*6/mm3 4.00-5.40 [facility] RDW 12.4 % 11.5-14.5 [facility] WBC TOTAL 6.2 4.0-10.0 [facility] ID Date Data Source [id number] 07/10/2020 07:12:00 PM EDT [facility] 98 178 Name Value Range Interpretation Code Description Data Claribel rce(s) Supporting Document(s) ID Date Data Source [id number] 06/17/2020 08:45:00 AM EDT [facility] 98 178 Name Value Range Interpretation Code Description Data Claribel rce(s) Supporting Document(s) T4, FREE 0.97 ng/dL 0.76-1.46 N [facility] TSH 1.950 microintl units/mL 0.358-3.740 N [facility] VIT D25 TOT 42.6 ng/mL 30.0-100.0 N [facility] ID Date Data Source [id number] 06/17/2020 08:45:00 AM EDT [facility] Name Value Range Interpretation Code Description Data Claribel rce(s) Supporting Document(s) HCT 41.5 % 36.0-47.0 N [facility] HGB 12.8 g/dL 12.0-15.5 [facility] MCH 30.8 G/DL pg 32.0-36.5 L [facility] MCHC 29.1 PG % 27.0-33.0 [facility] PLATELETS 279 10 10*3/mm3 150-450 N [facility] RBC 4.40 10 10*6/mm3 4.00-5.40 [facility] RDW 12.2 % 11.5-14.5 [facility] WBC TOTAL 4.8 4.0-10.0 [facility] ID Date Data Source [id number] 08/25/2020 09:05:00 AM EDT [facility] Name Value Range Interpretation Code Description Data Claribel rce(s) Supporting Document(s) Transferrin 216 mg/dL [id number] [facility] ID Date Data Source [id number] 05/15/2020 11:54:43 AM EDT [facility] Name Value Range Interpretation Code Description Data Claribel rce(s) Supporting Document(s) Progress Note [facility] FLGINq0wQeKJHsQp39/NRQvwIOIli6CjERquVOi4TMkkIKEaJ1EaRBZ7lA6cRIB5OAgOGvGoSrZcLhFb lbm OxPlgAIvDlHEBdMgnQGuEoLYpoByaqcORkES3QvDK7KSOxY45eOJRkFUFiJ5XoYCCaPTt+Ni7PGMKtbZ TsSW3WJitC8Depl+y4TK0gdR8tZXJMUeVCpgrsUZjOsrD8P1dgFmPHc8lMM1HV6eVoMsys1w2o74Kzdc 8CUFggv0DYeQyH/TsOTNm9MNX/b6Kb6PRIgPzhqDVO ReMF+fbf6IgxgEIy+IagAfplqqyYH2GNYv4pADcb5jdMTjyhKKlnAAjio40SuIUxLX6U3SczOQ0c2Tmg zyU1W0v4WABBDX8sbqpaGD7+OFqrdG92OeW+Kthsh9TeFAcOVqDJThshfHnAQcyiqVEzfSr3GWusIZV9 4yOtTznAKvJSkXZUtqURenCrX+mmNQGV+N1RIVjADQ saq8PAicwMNqMe1X9jA3lykAaDZMeUa4I6lNs2CEnWt+MupFDgPpOs4MIPmeZGpaQ3KQPBIdZF2RJRIl 7K2mr+bB5ohWrblTcs/i4MD76kb2HjAcI0n6n16Br5lBrfXl899c0BmEy3Q7lG3G0Ik0fp963aIaKqgW KuXSJP4LCVKJ2tcoCd5ouo+cOOM9U3lwmcjGHOroFt Nita/lEuSJKVt9JpWwAZtIZCDK3jBcRhN7Ot25iqYmf9BDjJv9DglHkWnC/wxrKGpe2aSfjZWUAUdOxmd [file] YfAN5OTBm= ID Date Data Source [id number] 05/15/2020 11:12:41 AM EDT [facility] Name Value Range Interpretation Code Description Data Claribel rce(s) Supporting Document(s) Progress Note [facility] NXKTPe1iDgSZLdFh58/GWXnnNJKne7PuZExzTOc1COimKCDkU0IpUQT1fF4jUKM4PMiOTwZcBtEgRcNq lbm [file] [facility]//2/540xQ424nmhNqB3rf09vMJYW6CPDJB69BR [file] DQo+Rb2Uy7IslyS6uyFhDBihVJH3Ps1NVWNDV1KPFy== ID Date Data Source [id number] 05/14/2020 09:28:32 AM EDT [facility] Name Value Range Interpretation Code Description Data Claribel rce(s) Supporting Document(s) Progress Note [facility] HVJQPi4yRbFNQxEi25/YUUinKBPjo1PcQDloWPe0XQzyFSKnJ8XgWSV2dJ7jJTN9ITnCFqJkNaGgBwYo lbm [file] yOwmsqZJNDUZX2vm8nZzcqBLuJMXEVnoQFHQKvhR6A H5JMY0fyV/OP7k2gN/T8LY63ICoPg4j8ZXFaKE4HVdFMKuHDNWDPURANEfmjqMmcJDVEa2aznWPknw9E BuAi634ii20R/rNvVvBFXhmdkNRCpOy4M2lteZyrbFTdbf/vI53Oubku6AM79CIwu7ycDzCNIDG73p/T I82t/d5ioYu9lvPlNX491DO5ePIr7CTJSdVIkkPCaG Dvh4VnqhPWz2LhxlczmOCKh6XlMdwqq8D7zrdaSaqvFl++0V9uWsRfBcsNU6A0YETpz3PpqgsaIyG9oC Gw2EJadFUrMDKnMBEFLZiNgvJOpm4Q9wJa+D1zWSnguQ/fUHp92dtdMW4ZTKVUR89OzBH+Gyv6B1wbRN GoUeVNT3wnZguY1BGQ5uz4SpGCcwSmBvJA2brm8XCP J9YK3IKYNzPO3AsOEwY1LaL3JDMrWwOMMgNHGkAJ84NNGnMYZIGJnrAFCiW1Czb400vrVwwjMiTHOrDy 9ELNVpVB8GFLHfCOQrrFHiJCAyLFTmGiS7ZCYeYHphGCEkM4DcfhPqgbOnUMVsNHFyAz8ZWVWoIP9Sfo 26nGE0QBFdTjTvKNMmnkFhKISjihB0MH1ORpYwGIR3 dWXaHatTQT9ZTRUbqGXgUT9ELNVhxDEnCC2+DQogID4+MLykisCkUbiSHnH4IOQnx7LjCKnfZZh3J8Bi kYHhxsUvHfdsqARCHEJwEALdN2dpovl4fZUlVTd3Ml7AFhLly5TuAABnDBhFxm0hnR/bxhH+XqD/YYGi lYETYk0tSdqApg+yHglcKxci4cdwvLwpzEXJzlQF/y Y/SUI5yXxh7UKekQd6nOPUu8O7o0gdcLusYKVc//0hBqFvWZbY/[employer]IL[employer]ING [employer] MAINTAINER+GUaOmNyIv/9AvHr9Nemv+ydbtP [file] AgICAgICAgICAgICAgICAgICAgICAgICAgICAgICAg ICAgICAgICAgICAgICAgICAgICAgICAgICAgICAgICAgICAgICAgICAgICAgICAgICAgDQogICAgICAg ICAgICAgICAgICAgICAgICAgICAgICAgICAgICAgICAgICAgICAgICAgICAgICAgICAgICAgICAgICAg ICAgICAgICAgICAgICAgICAgICAgICAgICAgICAgIC AgDQogICAgICAgICAgICAgICAgICAgICAgICAgICAgICAgICAgICAgICAgICAgICAgICAgICAgICAgIC AgICAgICAgICAgICAgICAgICAgICAgICAgICAgICAgICAgICAgICAgICAgDQogICAgICAgICAgICAgIC AgICAgICAgICAgICAgICAgICAgICAgICAgICAgICAg ICAgICAgICAgICAgICAgICAgICAgICAgICAgICAgICAgICAgICAgICAgICAgICAgICAgICAgDQogICAg ICAgICAgICAgICAgICAgICAgICAgICAgICAgICAgICAgICAgICAgICAgICAgICAgICAgICAgICAgICAg ICAgICAgICAgICAgICAgICAgICAgICAgICAgICAgIC AgICAgDQogICAgICAgICAgICAgICAgICAgICAgICAgICAgICAgICAgICAgICAgICAgICAgICAgICAgIC AgICAgICAgICAgICAgICAgICAgICAgICAgICAgICAgICAgICAgICAgICAgICAgDQogICAgICAgICAgIC AgICAgICAgICAgICAgICAgICAgICAgICAgICAgICAg ICAgICAgICAgICAgICAgICAgICAgICAgICAgICAgICAgICAgICAgICAgICAgICAgICAgICAgICAgDQog ICAgICAgICAgICAgICAgICAgICAgICAgICAgICAgICAgICAgICAgICAgICAgICAgICAgICAgICAgICAg ICAgICAgICAgICAgICAgICAgICAgICAgICAgICAgIC AgICAgICAgDQogICAgICAgICAgICAgICAgICAgICAgICAgICAgICAgICAgICAgICAgICAgICAgICAgIC AgICAgICAgICAgICAgICAgICAgICAgICAgICAgICAgICAgICAgICAgICAgICAgICAgDQogICAgICAgIC AgICAgICAgICAgICAgICAgICAgICAgICAgICAgICAg ICAgICAgICAgICAgICAgICAgICAgICAgICAgICAgICAgICAgICAgICAgICAgICAgICAgICAgICAgICAg SIg3I1orBEMwGDYkXY2hGAm7Wd4+MIcQPvXzUCT1onHisL6HYQ3ec2LlAPviBNHzv3KrODz2NN8NYXRb JMclWW5LXGxmqo7QPJFlUCCpeLPUl6zzCvSdNBC6IW JmOfkaWE5XAQTkC0tkokXtCOOsOTAMPBjfLURRZVozKPIMJSNpIAGhDsVwZqVaHMWfLGBiWMXCQLK6NA OyLvTkPRakFQ4Jd0CbmIH3EFz+Ha0IEA3yi9DgTXlgIYJqQM4ubq9RCFiNZvDlQ9OldmZ0JGV5EZAsTz 7RZNRnTJGgxBCpLXLlCSIZXuSqL2XyqF79JTNXPk1+ VXxhciHsKrwKQlM6ZARxl2WaHIr7ER1SAYYxOKx9iVRoRLQgB9Vfl5AyVz59WNTgTchvGBTwxVEhjNZo CnJSiK6tDD9bXOYYVZN5EFgsRE7gNOBkLBE0ZtMoBROYVU3ZWMFhVAMcfWRlEKFoUFWOHL3KXKywIUR2 CSAejaSysCWoUZceQD1VMJTpyhMbMpZxHICXCAf+Pg 3OFE0pa7UnZRqmHgWmXS6lkj8NMVzICrMbU3H7iXEpF4N2PFabGi5ESHHmJFHsCmSiUHFEXOxvVA1FMV 5pliG1LF5BgKYzQQCiSCBkxIXyRWs4X44ouHNzSTqnLJ1EBAF+Geno+Lp5VLCFpPQGzMEAuKvMbFANXSk GuB5BsQ9UCj0YxP0VdFH10hBfflcDbARsuFY6YQS8k GCXwHJCUNK1JjCAtzZ9xqiXhTSBtMTCXNiQuP54thORyZGRvWTKcOZSvFw6IIWPzE5HbzkGwtAfeasLt VJLfQDGMWZ2OQKgfhjKieMTcnHshBH41yTuwBB3VCa7FBeJiUK0yfm6RiUPmIz8GJPWyBj1OCPDsWCCj MDWhIZI9YSKrJcYvDMjfOAXvBRThNCT7TBMlQNWeML 3NTjSiQZVsCis5AzalLXVuDKNvld0XCQUsJJM1QJWcIvZuLWIiGSPrSScdAJByDEEpCBH3YWZoXOFcXS 6TBwXzCUKpUBY8SgKlEMBnQQAzld0GKYCfPXBnJREaVJYcUIBeZWZnOUozCFIbHQP4AtS0PISkYURrQV 5XCtXyVNPnFTx0YeJgPSClBWPmxp8BXHWwXKRiUXqr BGTvYERrXEDxZNmnKODmTRDlEZP5JPGeUYNcNN5ADxIuDEVqWMFkEhWhGBPeGJIvfv8NTLPmXBQnWHO3 VeLwJHRrGHSoFXpgPEXbTRS0TAf6ULFmEFRxDC8YOpXhZLOkETO7NOPvDLJaSPXiqi0WKAVaVTItKOD4 LGVgSRFgKCKtNUbtXTWoARK9DyagQMHwWSUrQJ7JJl IrNPBhTjWsQASwMMZqPYMlvd0CLBGdZBFmMcU0TsDdQQHrXTDmHSojZBVuHVHjKhR9CBGnDOUvTF4BLs BrFSMeNyZ0ORPmYNPvDZYgxm1XRCBhRYMrHrFyBpGfOSSqFXSvQWluZWTsFQF8ZWm9EIOyNOYlYN9UXr IiBTXvMmO5EOthHLMxKLVnpb6EEGNgUKZoBZh6WxWm PSIsJLKuPEgiLWYsNCT5XBU3BWLtUWOwMA0XOgCvJXDnXcR0AdZyRDQlQOXqeq9SCILrWIJsJbj8KEKy QZOgUKUqAPanLPTjSDY3PFywVXKtPCHnOW7MVyYkUTLjYcyfLbXnDMPeVZAald7JWNXnRDQgZLC1UVGp TLCsGPNfTKrsLOAwAYJ7DUF9IRMyQXBkDI4WQpPvIN PaYpg2ZFVzGZUcDAZzel5TCFPwNRHmAEG9PwKsSDXjLVScIBspPOZjQKAzIKXkHTRvWCGmXZ3FKmOeVX MgWYV6TBFcHRMfBWRthw0LLRCpREX0QJe7YjBaURAjZYMiUJk8wmXkrWCoAYp0TP5YL6CxvcJqOhiGFw 2Ft804QHL7ITRaHt6OV8nzDf3jFKFrUUQBQu0ZGGs7 OcraSQF0HtF6OIscFUMgKdIyHIuqYgjrOgRrKnH7DCI+INp0CAK3RVF1AEkeJyD8LzIkHvWrPLVyJYY4 KHC1CZE5Xa8yOIVAHd8+YCaocGMcrBgyMEAQIsNnASW0ZJweOFPAUd4P ID Date Data Source [id number] 05/09/2020 05:47:00 AM EDT [facility] 175 160 Name Value Range Interpretation Code Description Data Claribel rce(s) Supporting Document(s) HCT 33.3 % 36.0-47.0 L [facility] HGB 11.2 g/dL 12.0-15.5 L [facility] MCH 33.6 G/DL pg 32.0-36.5 N [facility] MCHC 30.2 PG % 27.0-33.0 N [facility] PLATELETS 176 10 10*3/mm3 150-450 N [facility] RBC 3.71 10 10*6/mm3 4.00-5.40 L [facility] RDW 13.6 % 11.5-14.5 [facility] WBC TOTAL 2.8 4.0-10.0 L [facility] ID Date Data Source [id number] 05/09/2020 05:47:00 AM EDT [facility] 175 160 Name Value Range Interpretation Code Description Data Claribel rce(s) Supporting Document(s) ID Date Data Source [id number] 05/08/2020 10:28:00 PM EDT [facility] 175 160 Name Value Range Interpretation Code Description Data Claribel rce(s) Supporting Document(s) ID Date Data Source [id number] 05/08/2020 02:00:00 PM EDT [facility] Name Value Range Interpretation Code Description Data Claribel rce(s) Supporting Document(s) BG FASTING 218 mg/dL 70-100 [facility] ID Date Data Source [id number] 05/08/2020 06:31:00 AM EDT [facility] Name Value Range Interpretation Code Description Data Claribel rce(s) Supporting Document(s) BG FASTING 139 mg/dL 70-100 H [facility] ID Date Data Source [id number] 05/08/2020 02:26:00 AM EDT [facility] Name Value Range Interpretation Code Description Data Claribel rce(s) Supporting Document(s) BG FASTING 173 mg/dL 70-100 H [facility] ID Date Data Source [id number] 05/07/2020 10:32:00 PM EDT [facility] Name Value Range Interpretation Code Description Data Clraibel rce(s) Supporting Document(s) BG FASTING 150 mg/dL 70-100 H [facility] ID Date Data Source [id number] 03/25/2020 10:51:05 AM EDT [facility] Vital Signs performed by: Peggy Arreola, March 25, 2020 10:51 AMVital Signs performed by: Peggy Cottrell LPN, March 25, 2020 10:51 AMInitial Intake Information From: patientPhone Number: Visit Type: phone encounterConsent Provided by PatientInfectious Disease / Travel ScreeningRecent travel for you or any close contacts? NoHave you had any close contact with anyone diagnosed with or under investigation for COVID-19 (coronavirus)? NoFever? NoRespiratory symptoms: cough, cold, congestion, shortness of breath, difficulty breathing? NoLoss of smell? NoLoss of taste? NoSmoking, Tobacco, Vaping or Smoke Exposure StatusSmoke Status: never smokerTobacco Use: NoDo you vape? NoPassive Smoke Exposure: NoMenstrual HistoryLast Menstrual Period (LMP): 03/22/2020Any possibility of ? NoHealthcare HistorySince your last office visit...Have you been admitted to the hospital? NoHave you been to an emergency room (ER) or urgent care clinic? NoHave you seen another healthcare provider? Yes - [facility], [facility] woman ,Have you seen a dentist? Yes - DR Benson performed by: Peggy Cottrell LPN, March 25, 2020 10:54 AMRate Your HealthIn general, would you say your health is? GoodPain AssessmentAre you currently having any pain which... You would like your provider to address? No Affects your activity level? NoDepression Screening - PHQ-2Over the last two weeks, have you... Had little interest or pleasure in doing things? Not at all Been feeling down, depressed, or hopeless? Not at all PHQ-2 Score: 0Anxiety Screening - JOSIE-2Over the last two weeks, have you been... Feeling nervous, anxious, or on edge? Not at all Unable to stop or control worrying? Not at all JOSIE-2 Score: 0Food InsecurityWithin the past year...Did you worry whether your food would run out before you got money to buy more? NoWas there a time when the food you bought didn't last and you didn't have money to get more? NoScreening, Brief Intervention, & Referral to Treatment (SBIRT)Pre-Screening Questions How many times have you have 4 or more drinks in a day? 0How many times have you used an illegal drug or used a prescription medication for a non- medical reason? 0Performed by: Peggy Cottrell LPN, March 25, 2020 10:55 AMPatient History Medical History:DM Type 1scoliosisHigh cholesterolSurgical History:LEEP Family History:DM A7jybphcxegjnmdnjyicrxdkvycgOndwti/Personal History: Chief Co mplaintfollow-up visit Lab Results via phone History of Present Illness (HPI)This visit was conducted via telephone. Nikki Mckenzie has received verbal consent from the patient/guardian to conduct this visit via telehealth. The patient has been made aware that they have the right to refuse telehealth; of my location and the security of the telehealth software; any other parties present in the session; and that they have a right to select another provider if chosen for a face to face visit.34 Yo female via phone for lab reults.Pt states taking medications as prescribed without side effects.Pt states healthy diet and physical activities. Pt sates no concerns today.Telephone visit 20 minutes.HPI performed by: Nikki RODRIGUEZ, March 25, 2020 11:50 AMTransitions of Care InboundProblem ReviewProblem List was reviewed and/or updated during this visit.Medication Reconciliation & ReviewMedication List was reviewed and/or updated during this visit, including review of any rnsy-nix-sogbzvj medications, herbal therapies, and/or supplements.Allergy ReviewAllergy List was reviewed and/or updated during this visit.Provider Calculated and Reviewed all Clinical Protocols for patient today. Review of Systems General: Denies loss of appetite, chills, dizziness, fatigue, fever, continued fever, headache, feeling ill, sweats, night sweats, sleep disturbances, weight loss. Eyes: Denies blurring of vision, double vision, irritation, discharge, vision loss, eye pain, eye swelling, droopy eyelid, sensitivity to light, redness, itching. Ears/Nose/Throat: Denies earache, ear discharge, ringing in ears, decreased hearing, nasal congestion, nosebleeds, runny nose, sore throat, hoarseness, difficulty swallowing, dry mouth, tooth pain, bleeding gums, swollen glands. Cardiovascular: Denies chest pain, palpitations, feeling faint, trouble breathing w/exertion, SOB upon lying down, SOB at night, peripheral edema, elevated blood pressure, decreased heart rate. Respiratory: Denies cough, difficulty breathing, shortness of breath, excessive sputum, coughing up blood, wheezing, chest pain. Breast: Denies discoloration, tenderness, breast changes, breast lump, nipple discharge. Gastrointestinal: Denies nausea, vomiting, bleeding, burning, itching, irritation, cramps, diarrhea, constipation. Genitourinary: Denies urinary incontinence, pain with urination, burning with urination, urinary frequency, urinary hesitancy, urinary urgency, urinary urgency at night, incomplete emptying, blood in urine. Musculoskeletal: Denies back pain, joint pain, leg pain, other pain-see comments, joint swelling, body a ches, muscle aches, muscle cramps, muscle weakness, stiffness, recent injury. Skin: Denies rash, hives, redness, itching, dryness, nail changes, suspicious lesions, athlete's foot, rash on palms, rash on bottom of feet. Neurologic: Denies muscle impairment, weakness, numbness/tingling, seizures, slurred speech, feeling faint, tremors, vertigo, paralysis on one side, paralysis on both sides. Psychiatric: Denies depression, anxiety, memory loss, mental disturbance, suicidal ideation, homicidal ideation, hallucinations, paranoia, feeling stressed, hearing voices. Endocrine: Denies cold intolerance, heat intolerance, excessive thirst, excessive hunger, excessive urination, weight loss, weight gain. Physical ExamJudgment & Insight: intactCare Management Plan Transitions of CareInboundRate Your HealthIn general, would you say your health is? GoodAssessment & Plan Problems:Added: vitamin D deficiency (ICD-268.9) (ICD10- E55.9)Essential hypertension (ICD-401.9) (KFM67-F50)Person consulting for explanation of examination or test findings (ICD-V65.8) (OAW11-P79.2) Assessment: Instructions: We have reviewed your lab results with you today.Assessed:Hyperlipidemia, unspecified (RSF83-N75.5) Assessment: Instructions: We have increased the dose of your lipitor today. Please also continue healthy diet and physical activities. Please try to avoid processed foods.Assessment not Saved Person consulting for explanation of examination or test findings (DDR12-O48.2): Telephone visit 20 minutesPatient Instructions/Care Plan: Hyperlipidemia- unspecified: We have increased the dose of your lipitor today. Please also continue healthy diet and physical activities. Please try to avoid processed foods.Person consulting for explanation of examination or test findings: We have reviewed your lab results with you today. Plan developed in collaboration with patient and/or familyMedications:ATORVASTATIN CALCIUM 40 MG ORAL TABLETMULTI FOR HER 50+ ORAL CAPSULELISINOPRIL 10 MG ORAL TABLETIMODIUM A-D 2 MG ORAL CAPSULEVITAMIN D3 ULTRA POTENCY 54785 UNIT ORAL TABLETNOVOLOG 100 UNIT/ML SUBCUTANEOUS SOLUTIONTRESIBA FLEXTOUCH SOLUTION PEN-INJECTORMedication Changes:Refilled:VITAMIN D3 ULTRA POTE NCY 40111 UNIT ORAL TABLET-take one tablet by mouth weekly Qty: 12[Tablet] Refills: 0 Method: ElectronicATORVASTATIN CALCIUM 40 MG ORAL TABLET-take one tablet by mouuth daily at bedtime. Qty: 30[Tablet] Refills: 3 Method: ElectronicLISINOPRIL 10 MG ORAL TABLET-take one tablet by mouth daily Qty: 30[Tablet] Refills: 2 Method: ElectronicChanged:From: ORAL VITAMIN D3 ULTRA POTENCY 28261 UNIT ORAL TABLET Qty: [id number] Refills: 12[Tablet] To: VITAMIN D3 ULTRA POTENCY 20057 UNIT ORAL TABLET-take one tablet by mouth weekly Qty: 12[Tablet] Refills: 0From: ORAL LIPITOR 20 MG ORAL TABLET Qty: [id number] Refills: 30[Tablet] To: ATORVASTATIN CALCIUM 40 MG ORAL TABLET- take one tablet by mouuth daily at bedtime. Qty: 30[Tablet] Refills: 3From: ORAL LISINOPRIL 10 MG ORAL TABLET Qty: [id number] Refills: 30[Tablet] To: LISINOPRIL 10 MG ORAL TABLET-take one tablet by mouth daily Qty: 30[Tablet] Refills: 2Allergies:* TREES (Critical)* MOLDS (Critical)Orders:COMP METABOLIC PANEL [CPT-45062] CBC W/DIFF [CPT-46348] LIPID PANEL [CPT-81926] TSH [CPT-60510] T-4 free [CPT-66631] Vitamin D 250H Unspecified [CPT-36640] URINALYSIS [CPT- 68938] Telephone E&M 11-20 min Medical Discussion [CPT-25185] Follow-Up Return to clinic: 3 months for follow up Medications:LISINOPRIL 10 MG ORAL TABLET (LISINOPRIL) take one tablet by mouth daily #30[Tablet] x 2 Route:ORAL Entered and Authorized by: Nikki RODRIGUEZ Method used: Electronically to [facility]* (retail) [address] [place] [address] Fax: Note to Pharmacy: Route: ORAL; Indications: ESSENTIAL HYPERTENSION RxID: [id number] CALCIUM 40 MG ORAL TABLET (ATORVASTATIN CALCIUM) take one tablet by mouuth daily at bedtime. #30[Tablet] x 3 Route:ORAL Entered and Authorized by: Nikki RODRIGUEZ Method used: Electronically to [facility]* (retail) [address] [place] [address] Note to Pharmacy: Route: ORAL; Indications: HYPERLIPIDEMIA, UNSPECIFIED RxID: [id number] D3 ULTRA POTENCY 21937 UNIT ORAL TABLET (CHOLECALCIFEROL) take one tablet by mouth weekly #12[Tablet] x 0 Route:ORAL Entered and Authorized by: Nikki RODRIGUEZ Method used: Electronically to [facility] ([facility] [employer]) [address] [place] [address] Note to Pharmacy: Route: ORAL; Indications: VITAMIN D DEFICIENCY RxID: [id number] signed by Nikki RODRIGUEZ on 03/30/2020 at 8:30 PM Name Value Range Interpretation Code Description Data Claribel rce(s) Supporting Document(s) ID Date Data Source [id number] 03/18/2020 09:24:18 AM EDT [facility] In-House Blood TestsDate/Time Colle cted: March 18, 2020 9:24 AMTest Result Reference Range Normal ValueComments: labs rawn in office. taken from [facility]. tolerated well. Nimesh Graf MA, March 18, 2020 9:24 AMAssessment & Plan Orders:[id number] Vst-Est Level I [CPT-11431] 56499 - Venipuncture [CPT-48256] Name Value Range Interpretation Code Description Data Claribel rce(s) Supporting Document(s) ID Date Data Source [id number] 03/18/2020 08:30:00 AM EDT [facility] Name Value Range Interpretation Code Description Data Claribel rce(s) Supporting Document(s) HCT 40.1 % 36.0-47.0 N [facility] HGB 13.5 g/dL 12.0-15.5 N [facility] MCH 33.7 G/DL pg 32.0-36.5 N [facility] MCHC 29.1 PG % 27.0-33.0 N [facility] PLATELETS 222 10 10*3/mm3 150-450 N [facility] RBC 4.64 10 10*6/mm3 4.00-5.40 N [facility] RDW 13.2 % 11.5-14.5 N [facility] WBC TOTAL 3.9 4.0-10.0 L [facility] ID Date Data Source [id number] 03/18/2020 08:30:00 AM EDT [facility] Name Value Range Interpretation Code Description Data Claribel rce(s) Supporting Document(s) BG FASTING 430 mg/dL 70-100 Above upper panic limits [facility] VIT D25 TOT 17.3 ng/mL 30.0-100.0 L [facility] ID Date Data Source [id number] 01/10/2020 02:46:23 PM [facility] 10.611.09.2 Name Value Range Interpretation Code Description Data Claribel rce(s) Supporting Document(s) ID Date Data Source [id number] 12/25/2019 08:20:32 AM [facility] Measurements & CalculationsWeight: 171 pounds 4 oz. 77.84 kg Weight Management Education Done (Nutrition/Physical Activity)Vital SignsTemperature: 98.2FPulse Rate: 98 beats/minuteRespiratory Rate: 14 respirations/minuteBlood Pressure: 118/83 O2 Saturation: 100% Vital Signs performed by: Vanesa Ulloa, December 25, 2019 8:30 AMVital Signs performed by: Vanesa Ulloa, December 25, 2019 8:30 AMInitial Intake Information from: patientRoom #: 12Smoking, Tobacco, Vaping or Smoke Exposure StatusSmoke Status: never smokerTobacco Use: NoDo you vape? NoPassive Smoke Exposure: NoMenstrual HistoryLast Menstrual Period (LMP): 11/27/2019Any possibility of ? NoHealthcare HistorySince your last office visit...Have you been admitted to the hospital? NoHave you been to an emergency room (ER) or urgent care clinic? NoHave you seen another healthcare provider? Yes - [facility]Have you seen a dentist? YesIntake performed by: Vanesa Ulloa, December 25, 2019 8:32 AMRate Your HealthIn general, would you say your health is? GoodPain AssessmentAre you currently having any pain which... You would like your provider to address? No Affects your activity level? NoDepression Screening - PHQ-2Over the last two weeks, have you... Had little interest or pleasure in doing things? Not at all Been feeling down, depressed, or hopeless? Not at all PHQ-2 Score: 0Anxiety Screening - JOSIE-2Over the last two weeks, have you been... Feeling nervous, anxious, or on edge? Not at all Unable to stop or control worrying? Not at all JOSIE-2 Score: 0Food InsecurityWithin the past year...Did you worry whether your food would run out before you got money to buy more? NoWas there a time when the food you bought didn't last and you didn't have money to get more? NoInfectious Disease / Travel ScreeningRecent travel for you, your family, and/or any sexual partners? NoScreening, Brief Intervention, & Referral to Treatment (SBIRT)Pre-Screening Questions How many times have you have 4 or more drinks in a day? 0How many times have you used an illegal drug or used a prescription medication for a non-medical reason? 0Performed by: Vanesa Ulloa, December 25, 2019 8:32 AMPatient History Medical History:DM Type 1scoliosisHigh cholesterolSurgical History:LEEP Family History:DM P6epevmbnpyhzjvpqwnrvrpyxlmkSxzkfn/Personal History: Chief Complaintfollow up labs, no real concernsHistory of Present Illness (HPI)34 yo female here today for follow up visit and review of lab results. Pt states doing well except for recent headache that started 3 days ago.Pt states have been taking tylenol with some effect. Pt states blood sugar 160s- 200s Pt is followed by [facility]. Last HGA1c 10.6Pt states trying to manage blood sugar. Pt stsates see cashier receptionist at the [facility]. HPI performed by: Nikki GAGEP, December 25, 2019 8:43 AMTransitions of Care InboundProblem ReviewProblem List was reviewed and/or updated during this visit.Medication Reconciliation & ReviewMedication List was reviewed and/or updated during this visit, including review of any rihu-bmk-hhvhuau medications, herbal therapies, and/or supp lements.Allergy ReviewAllergy List was reviewed and/or updated during this visit.Adult Preventive CareProvider Calculated and Reviewed all Clinical Protocols for patient today. Labs/Meds/Other Counseling-Nutrition and Physical Activity:BMI Interpretation: Overweight (09/25/2019) Counseling: Done (12/25/2019) Physical Activity: Done (12/25/2019)Review of Systems General: Complains of headache. Denies loss of appetite, chills, dizziness, fatigue, fever, continued fever, feeling ill, sweats, night sweats, sleep disturbances, weight loss. Eyes: Denies blurring of vision, double vision, irritation, d ischarge, vision loss, eye pain, eye swelling, droopy eyelid, sensitivity to light, redness, itching. Ears/Nose/Throat: Denies earache, ear discharge, ringing in ears, decreased hearing, nasal congestion, nosebleeds, runny nose, sore throat, hoarseness, difficulty swallowing, dry mouth, tooth pain, bleeding gums, swollen glands. Cardiovascular: Denies chest pain, palpitations, feeling faint, trouble breathing w/exertion, SOB upon lying down, SOB at night, peripheral edema, elevated blood pressure, decreased heart rate. Respiratory: Denies cough, difficulty breathing, shortness of breath, excessive sputum, coughing up blood, wheezing, chest pain. Gastrointestinal: Denies nausea, vomiting, diarrhea. Genitourinary: Denies urinary incontinence, pain with urination, burning with urination, urinary frequency, urinary hesitancy, urinary urgency, urinary urgency at night, incomplete emptying, blood in urine. Musculoskeletal: Denies back pain, joint pain, leg pain, joint swelling, body aches, muscle aches, muscle cramps, muscle weakness, stiffness, recent injury. Skin: Denies rash, hives, redness, itching, dryness, nail changes, suspicious lesions, athlete's foot, rash on palms, rash on bottom of feet. Neurologic: Denies muscle impairment, weakness, numbness/tingling, seizures, slurred speech, feeling faint, tremors, vertigo, paralysis on one side, paralysis on both sides. Psychiatric: Denies depression, anxiety, memory loss, mental disturbance, suicidal ideation, homicidal ideation, hallucinations, paranoia, feeling stressed, hearing voices. Endocrine: Denies cold intolerance, heat intolerance, excessive thirst, excessive hunger, excessive urination, weight loss, weight gain. Physical ExamGeneral Appearance: well nourished, well hydrated, no acute distressEyes, External: conjunctivae and lids normal, EOMIRespiratory, Auscultation: clear to auscultation bilaterally; no rales, rhonchi, or wheezesRespiratory, Effort: no intercostal retractions or use of accessory musclesCardiovascular, Auscultation: S1, S2 audible; no murmur, rub, or gallop; RRRPeripheral Circulation: no clubbing, cyanosis, edema, or varicositiesAbdomen: soft, non-tender, no masses, bowel sounds normalGait & Station: normalSkin, Inspection: no rashes, lesions, or ulcerationsOrientation: oriented to time, place, and personMood & Affect: no depression, anxiety, or agitationJudgment & Insight: intactCare Management Plan Transitions of CareInboundRate Your HealthIn general, would you say your health is? GoodAssessment & Plan Problems:Added: Hyperlipidemia, unspecified (OUA72-U10.5) Assessment: Instructions: We have sent a prescription to your pharmacy to start Lipitor. please take this medication as prescribed. Please report any major side effects. Please continue lifestyle changes to include healthy diet and physical activities. Please try to avoid/ limit processed foods.Headache (ICD-784.0) (JKK46-L68) Assessment: Instructions: Will continue to monitor for now. May continue OTC tylenol as needed. Please let us know if headaches worsen.Assessed:Diarrhea (ICD-787.91) (MXZ85-Q11.7) Assessment: resolved at this time, per patient.Type 1 diabetes mellitus without complications (ZPG09-A86.9) Assessment: Pt is followed at [facility] for type 1DM . Last HGA1c 10.6 Instructions: Please continue medications as prescribed. Please continue lifestyle changes to include healthy diet and physical activites. Please continue to limit sugars and carbohydrates in your diet. Please try to maintain adequate hydration.Health Screening (ICD- V70.0) (GOC59-C45.9) Assessment: Instructions: We have reviewed your lab resultsw with you today.High cholesterol (ICD-272.9) (MWV33-T49.70) Assessment: Instructions: Please continue lifestyle changes to include healthy diet and physical activities. Please try to avoid processed foods. Please try to maintain adequate hydration.Patient Instructions/Care Plan: Hyperlipidemia- unspecified: We have sent a prescription to your pharmacy to start Lipitor. please take this medication as prescribed. Please report any major side effects. Please continue lifestyle changes to include healthy diet and physical activities. Please try to avoid/ limit processed foods.Type 1 diabetes mellitus without complications: Please continue medications as prescribed. Please continue lifestyle changes to include healthy diet and physical activites. Please continue to limit sugars and carbohydrates in your diet. Please try to maintain adequate hydration.Health Screening: We have reviewed your lab resultsw with you today.Headache: Will continue to monitor for now. May continue OTC tylenol as needed. Please let us know if headaches worsen.High cholesterol: Please continue lifestyle changes to include healthy diet and physical activities. Please try to avoid processed foods. Please try to maintain adequate hydration. Plan developed in collaboration with patient and/or familyMedications:LIPITOR 20 MG ORAL TABLETMULTI FOR HER 50+ ORAL CAPSULELISINOPRIL 10 MG ORAL TABLETIMODIUM A-D 2 MG ORAL CAPSULEVITAMIN D3 ULTRA POTENCY 97619 UNIT ORAL TABLETNOVOLOG 100 UNIT/ML SUBCUTANEOUS SOLUTIONTRESIBA FLEXTOUCH SOLUTION PEN-INJECTORMedication Changes:Added: MULTI FOR HER 50+ ORAL CAPSULENew Prescription:LIPITOR 20 MG ORAL TABLET-take one tablet by mouth daily Qty: 30[Tablet] Refills: 2 Method: ElectronicAllergies:* TREES (Critical)* MOLDS (Critical)Orders:Adult - Ofc Vst, EST, Level IV [CPT-93793] Follow-Up Return to clinic: 3 months for follow up Clinical Visit Summary CompletedMedications:LIPITOR 20 MG ORAL TABLET (ATORVASTATIN CALCIUM) take one tablet by mouth daily #30[Tablet] x 2 Route:ORAL Entered and Authorized by: Nikki RODRIGUEZ Method used: Electronically to [facility]* (retail) [address] [place] [address] Note to Pharmacy: Route: ORAL; Indications: HYPERLIPIDEMIA, UNSPECIFIED RxID: [id number]] Name Value Range Interpretation Code Description Data Claribel rce(s) Supporting Document(s) ID Date Data Source [id number] 11/01/2019 03:40:11 PM EST [facility] Name Value Range Interpretation Code Description Data Claribel rce(s) Supporting Document(s) Progress Note [facility] MJBVSk4oSdOPFuWu23/MDShtTUBwa0KfFSeuZHn6LFawFLJvK4HpMJN8oK3iWXD0HFcPOjUoZLsrEoD3 lbm [file] AgICAgICAgICAgICAgICAgICAgICAgICAgICAgICAgICAgICAgICAgICAgICAgICAgICAgICAgICAgIC AgICAgICAgICAgICAgICAgICAgICAgICAgICAgICAg CC1HBWMlKOLwMJVnIIPiDVIpQFLrEJHcOYUwZECnMJKrOIJyXPLhTQDvIRAfYVVuDNEhVEEhRELsLXKf UOXoPRJdQNDeMAHyVMHdSNRuTHCfYTVrVVObEVSpTIBrWIEcFVAoPXJvFT7JYQNrPMSlSLIsOFPhDOQm ICAgICAgICAgICAgICAgICAgICAgICAgICAgICAgIC GdXBKhMVBwEAXiWJGkPVNmXBUpDPMmIELcZHFjJXUlWJIuAAYuGTKoBUUcZNBrKPKzRLIfKW7INMVcXQ AgICAgICAgICAgICAgICAgICAgICAgICAgICAgICAgICAgICAgICAgICAgICAgICAgICAgICAgICAgIC AgICAgICAgICAgICAgICAgICAgICAgICAgICAgICAg PDXzKN5SIAWfUCAcZBKhJDJsIOGxMPLqOJTjGTEfJHNcWDBzTXUoQWBsFYSuSUGmYCRkYWUzHCEwQHTi BUKyYHFzVMJxGDKzUNBtPBVwZELoWNZpARJgQCTlEETgHCSjTOAnYEJxJLDyYJ3WYYObNWSyHFEzDUYt ICAgICAgICAgICAgICAgICAgICAgICAgICAgICAgIC HvUQNhVDAjNRKyOPJwYGKfITHpJAKwXVVuCWXoWBEqODCpFHGrNLKoGTHzWOPsDNBxKBCuDJExDT7BZZ AgICAgICAgICAgICAgICAgICAgICAgICAgICAgICAgICAgICAgICAgICAgICAgICAgICAgICAgICAgIC AgICAgICAgICAgICAgICAgICAgICAgICAgICAgICAg SZHiEDHmWV0BJRRoUTVbPVVkEZHlHBYyXFZbFLHeTTPjXCBiPOFlSMGeZGXbRTNaHTFrKXDfIZHeBYPy HFGiOYKtPECvGTOpCCAqABHjMUVrJPBuUQBjDWBjBLIwKWBaQNStCWXtVJQhSAXmFJ3QLYJmGIQaGNSo ICAgICAgICAgICAgICAgICAgICAgICAgICAgICAgIC AgICAgICAgICAgICAgICAgICAgICAgICAgICAgICAgICAgICAgICAgICAgICAgICAgICAgICAgICAgIA 0KICAgICAgICAgICAgICAgICAgICAgICAgICAgICAgICAgICAgICAgICAgICAgICAgICAgICAgICAgIC AgICAgICAgICAgICAgICAgICAgICAgICAgICAgICAg DIVdHDBuWXTdPY7SPS66gMQpd8Q7QEKkYD2bbwh/Nh6TBLjpnvSucENuGZ8LJcNiWU1szr8ZGiKcVU9j ug0XIRpLTgDhD6E0pUCyRQEfGKWMHtVbO89cCRpkCm59WQoaOTXbXdWvRAq2Mu7LCnYkJ1nzQCMnYcY5 TKCwYeT9SRXsHkA9AVOrJlEnPMIcYPSwYZTwVTZJGB L8SNTyEuTrFkYmKEBrRU3IVZGcC701gyZlHd8DPj5OUfVyLI0pqd8GBqMxFWFuLzhXDyu4FEnwAM8ExO XujCCrEMNySDECVxQuM7hgh1EdUbGiIDPBFLwfYY8Mg5IrvCMpOMw+Md7AYZ4yg5QcCKcvGUCbCL8iyl 6TJQsCUnFbI9JuxEhdDVLtf2nmHRQxEY8xtOOyBCQ7 DYIbqwsdeTyxTYDsQLTpvMVbVFAUPKXdgCSxRx1hPn6mMTK8QKN9FvZfIDHMAV5HJSUxWEEbaPQzCDGs LOTFXA2XFVzhEXT9QWKxmtDpyPBwVLmjKT6RAVDgtoXyDrGqUEQZULy+Fg2OGJ5hr4TsTUfvTmKsQE3o ip1BAPbJBlMwG9Y7nJNbU8C6VOvvFh5TFJKuIVEiXq FwCAOIRMnoLD1JAF2abhY3DV6PaIGcXKEaDBLolIVzRHd8H87wcTWdLTjsOM0PEKO+Geno+Gz7ZCNGoJX DuHLGcKzXcUGVNDdNeK6HqX9HOr2GkI7TdZN46sTkdhkUsMSalFV1THV8jOELuVVCBWZ5YbYXfwC3src WkHSUlVNFEKhDpA89rgQSfHPGfSJQmCXQmEg5GFGJj Z7LdeiRxwKeiprIfNXXqIRQOQZ5CBLozuzPwbMHilLnsHF05wKpyYI0HNy2JXsCpXT6czu2MaQEqQy4E WUDiKb5MPOHyVRYsJHFaJDG6NYZdNnSqTHojWYJdAEQwDGP7QGUwBBKvEB1WOnZuCSOnLev5BTcsJDIz CVOexg4ZCPNfQWD8BFM7ZqScVHJmHZTjJOyuUCDiCO JbICL3HXPdAMVxAZ5FJjUoIZOiGOPnRqbsKJXdIWAxnv5REKIvHKHfDCMeMPHoDGJdBOWcPNgnVELrPW M4DNXcJRNzZYUoVC7ZHxIjFFXdTBpvYFgwJHDnBHQvpr5EKCLpQGVxQVZ2JiUbOYYsYNLkPOamUNFzUQ BkJNYiQMUoLBQkYF2YVkUjDXJsMAQgMlLqNQOgYRHc ei9NLWRyTBQgXnI5WSWrJSSuCWGtTFlmYJAqVVD8CSPmROEbGZAtWP7IOkXmHFAmHGAgHPSqUBSaLGNu fe8VKNZqJUZcXZZqFGUbWBSyQFSnTOnsUPSvSAW9CXK2NIQxGKVnDA9IBvBiGDBeSlZkJeXwQFJsRAFw mb9BQGGmWYKbFyVmTjPbQYPpDQSvDXcbWKAuQDWeGL o1YJXgOFZnDS7OReVmGGZcBvKoJMCnMMJuCKSamh0BUJXaUSZkBvP5SjUrISPoUVWvJFidOPVyHXG6UN W5ADMqCPKuOS9JWqMmIAWhGmM3XmonBYJuHTKdpu4BAWCzHILeOOtrVnJjTSOpVAUbMOocYPRrBOH0Xv K3JJSpUHYvPK0FZpOnNVIcSzT3BTMbJCFvLFOsmj0Y PXLpZKEoFpt4LLLnGRGsMAEtSAgjPKZmTZA2TQVvPDYaHMBwPN2PLpOwLYWwIriuENZzNPAfLKVteh7N DJQgYKWeMGMdNYWoXDEmLJRtZOanRPKtPJC9LSZ7VWKsIXDsPL0YUqRsEFSwJtp7EGEjRNXrEFBtpr1I MDAwMDAzOTAxMyAwMDAwMCBuDQowMDAwMDQwNDkxID FfLZEgKV9JTvHkCCYsHJQ6ZzWzLWVvVXFkci6RRUKmUNB7ZUykKZWpJTMhPFGgJAj0ejKzhLVhVJd6NB 9PX9UnxnSfDybZCj5Qh209ZFZ8ATRoSo2XW2juGr5uIDUsIFKALn7SWFz3FNSrEhZ2TfJ2VhI7TLDnFr KuBZp3TeK7YcLqSMw0JcJ+LYs0DCX8VRirHlvwZUi1 FSGdDESyIKkrHfddGvT5Izl9Jw8yYTQCDn1+QJxzfLZgkYuoTZUQItMgLFI6WOcgEIGDDn6C ID Date Data Source [id number] 11/01/2019 09:18:44 AM EST [facility] Name Value Range Interpretation Code Description Data Claribel rce(s) Supporting Document(s) Progress Note [facility] FMYHRg9rZcYOApEg76/ODUrgHPVqb9YdZEewNNo9VOdgTMTxY3MqXGE2zA7iYFF5BAuGHuFdVZqqHmW1 lbm WmStgMHkKfTLGhQyeXOvFkWFtkSxexjJSxDY1FjPD1YHMnI06uRPMsRDLnB7XmKHDhEkh+Sl0TFBHibV VdVH0OJqiM7PqvgfX5BH3v2B4vXBAIVlbIa0OEEJt2p7FwZDJFvBjZID8NvNMJ86aXueC356vFAtvHZW jcQyvpeWY5jCYnxcWSl9ADoC91W/YZnWKS2V/zKCRF 4wX6/seXdkLvnGJPwwTICNKZnC3jUoj9bxCsZUTCILOz8UdKDB9XCEC9RWCPPkSK8Ry/HB+aPH3nBkj2 AZiRGlpWxDNIOCA5301z2j/coBMsxqWeKNMowa6GuuhwkGsAxMFReM/FUKQUOvcIr3JUjWnry3AXXfri Nl4DAwxXW4b1WRThyiFTr/zQjlbF9Ax/O4OUSaYCft oveWK03xBOPsB+FGmyLNBJslhNs/nvvh1simmHfGnnSc2M1yxCQ6lwPYoIVHo5NOlEoafkIbL+U63ioK dw5cfrTtkJX126i4h//rckgw4GJ5ioyjjU1AKA6KFKTmlUJx15s5ofGf7Q3fg304TdS+a7JPdWyyfwrN XTqZX8iTSSuqudiYh3KzdaAdD6lOBatmk07BYrIOeA 2e+XUuQNLQe6lMYdKk27aVXVKtz3rvFvjbRoAMcUJZ5bUjtV40a3lEM7C3WQdwnzFHgThDUGUrds2GCO t7QTAZb88y18Zt52QxYPczLSdqKJUTAMQIchwIMraYl9RfPIohoLg+xidZ/Rn3S6CqPjLj0W7fdFZYhV aRxpGlnnVkTMvgF3KmIgKCsVPAZYF0LBrrilfI6wEL bcnDOJ8li8R5/Nn/Ot+H6T32yD2ZjgmWQLvwIi6M/cX7dwgeXNcPzEYOi8wNTgIkjC/689vMpWT+kkyX doXxc3SmL5NlGA6WUA5pgPIyz84s39OM/u8mghu4DBEWY6iS6/jgZ3k78YtaqMzq95jkSyz9CkYRvJ9F QJ7QSlcPV+Swlugzaiw7fC0Lj23QbievE/S/rvfndc [file] AgICAgICAgICAgICAgICAgICAgICAgICAgICAgICAgICAgICAgICAgICAgICAgICAgICAgICAgICAgIC AgICAgICAgICAgICANCiAgICAgICAgICAgICAgICAgICAgICAgICAgICAgICAgICAgICAgICAgICAgIC AgICAgICAgICAgICAgICAgICAgICAgICAgICAgICAg ICAgICAgICAgICAgICAgICAgICAgICANCiAgICAgICAgICAgICAgICAgICAgICAgICAgICAgICAgICAg ICAgICAgICAgICAgICAgICAgICAgICAgICAgICAgICAgICAgICAgICAgICAgICAgICAgICAgICAgICAg ICAgICANCiAgICAgICAgICAgICAgICAgICAgICAgIC AgICAgICAgICAgICAgICAgICAgICAgICAgICAgICAgICAgICAgICAgICAgICAgICAgICAgICAgICAgIC AgICAgICAgICAgICAgICANCiAgICAgICAgICAgICAgICAgICAgICAgICAgICAgICAgICAgICAgICAgIC AgICAgICAgICAgICAgICAgICAgICAgICAgICAgICAg ICAgICAgICAgICAgICAgICAgICAgICAgICANCiAgICAgICAgICAgICAgICAgICAgICAgICAgICAgICAg ICAgICAgICAgICAgICAgICAgICAgICAgICAgICAgICAgICAgICAgICAgICAgICAgICAgICAgICAgICAg ICAgICAgICANCiAgICAgICAgICAgICAgICAgICAgIC AgICAgICAgICAgICAgICAgICAgICAgICAgICAgICAgICAgICAgICAgICAgICAgICAgICAgICAgICAgIC AgICAgICAgICAgICAgICAgICANCiAgICAgICAgICAgICAgICAgICAgICAgICAgICAgICAgICAgICAgIC AgICAgICAgICAgICAgICAgICAgICAgICAgICAgICAg ICAgICAgICAgICAgICAgICAgICAgICAgICAgICANCiAgICAgICAgICAgICAgICAgICAgICAgICAgICAg ICAgICAgICAgICAgICAgICAgICAgICAgICAgICAgICAgICAgICAgICAgICAgICAgICAgICAgICAgICAg ICAgICAgICAgICANCiAgICAgICAgICAgICAgICAgIC AgICAgICAgICAgICAgICAgICAgICAgICAgICAgICAgICAgICAgICAgICAgICAgICAgICAgICAgICAgIC AgICAgICAgICAgICAgICAgICAgICANCjw/gAWbY3snzMGioyZ5E0rgAz1ZUp4QNL2nt1NqMBVjQCypsq ZqLnkRVkKkOIIzSavCJtz4EWmwYS4FcZNpN8GuS4St NGurUO4UHOVwPJRhbCXoPPGvQMVtYcP0AFMyRBpsTE7CxXVtPYrdKKRxRRCaRA0AJNSnS269ukBrPX7T Ko3YNlWmVW6fzm2MKAuxABXeBppDElv6TNlsUC5MkBOzoXOuYSHhMICWGlXqW1ttj2MlXeZlKBVJXUqx YR8Ch9SspHIePMa+Ym8DWW4ud8MwEKpoCVPqYJ0pfg 7HHPeMYrPgU3FbsTqqSRAhn0voQCWaHS4iuEAeTLL0VBIyixsgeUziNOFnLFIvkHJyAONAPJNueGKdIn 5uDs6jZWN0CVVxFjHrOZQBDQ7MEYVvRRTrtDTnCEGbPCTRVU6ZHIgoTNV6NEIyueUuoATqWKpdAA2VMV JlbnQgMTkgMCBSDQo+As6KLH3re0MhWMisLJPwSU0f si0BTAdPVyDeJ5X2cHFtJ2C9XTchVb8GDYJoQOAiMEryINUHLQwxBX2FOV6vczA6QC7YbPPdMWDyHVEd hFPtORb4V11zsCZqYVdfNS4KUNT+Geno+Ys6ISROyDKEfUTAlVwUcWKRNOqZfS4SaF5UFz5OnU5TaUG04 dUhroaUdWOavCG9USE3bHMQsZBIPGU2PlJNrwP0riw TeZYMiSTFQCnBqQ13soIWsCCYsJKD4TYAxAl4GPTYuT4WpqzOjtUhasnXaPUXkSYHFMU3XSAozmkUolT OhbEijTV30wKfpBQ4NFk5AEnOwGT9ysx9FuEVpFg2EASWiQd1QQDHaCZAxKZNtNUL2FSYwXbQoDRfiPS EzHWXjJGB0DEHhHLJgQL4UOwTcDTZwYXP0MjifCUDf GITxwb7SPTOsYMRiYBZ7EbOjCDNgGDUvEKknPUWjHCHbJOD2RYLlQCDzFN5EAsXtDCGdSAJ8SiUfOKUm LQRuaw3PSGGwSCGyMIa7IEFnOIFkPPNcZVswZPPaVQQiTgG3DEVnSNSvXE0QPvRbKXGuVEY8XnIfVDGs TWCrfr5WQCBfVCHiNrXeWITqYLNtBMShJNncXKWcME A0ITRxOFSzTNTyZD9OMfYhUQEnYEGbHyCaXJUlNODetz2XMYZiZPPvWLW6VEFdBDRlYZEhNMjaGHJoDA Y1IEC5HNHhWTWsSL4PNnMcGULvRJYyEbRbUQRrGHYdtc6VCSKfDGYwEmRyPWTgMGKzGSPbGPktUATtYP N2WRtnXHCnEYYvOZ9IHpQuBCZtHPG0UTogFONhCHLg tm2XPXXbJYMwIdVqBkLvFSZkCUVsUMpfMFAuGQI9CRF0ZYDyJUUeCQ7QXqJbTUSfYVn1YzHpYKPhCEBp mg0KVOUmDUKwHWb8HZXfADSvGFXbUHj3smAleVRuNAa0QX1FU7RipxGnFkNAVz3Mr212YUYlERUuUr0D L9zyTj7yNKLuIVCEOz0LWWd1GdwiJQKrPPTnPoVhBX JbVcukVmWqPnU1EAboOrwxNfj+AWirT7X6EQDrVbDhFGT8RsMxEXLvSeCaHBR4BtFdXQOeSN3eIGCREq 4+TDzamAMplQbaZIEPJlJ4NIZdFRrwDEZJWy8E ID Date Data Source [id number] 10/31/2019 02:33:27 PM EST [facility] Name Value Range Interpretation Code Description Data Claribel rce(s) Supporting Document(s) Progress Note [facility] LJKHPf1cNkOEAoHa37/BCFusXGNlx6RjLRuaYAy5FJbuNRHxJ6ZaVVA0gM5kIDE2KAfIJnPjPEokMaE4 lbm [file] ICAgICAgICAgICAgICAgICAgICAgICAgICAgICAgIC AgICAgICAgICAgICAgICAgICAgICAgICAgICAgICAgICAgICAgICAgICAgICAgICAgICAgICAgDQogIC AgICAgICAgICAgICAgICAgICAgICAgICAgICAgICAgICAgICAgICAgICAgICAgICAgICAgICAgICAgIC AgICAgICAgICAgICAgICAgICAgICAgICAgICAgICAg ICAgICAgDQogICAgICAgICAgICAgICAgICAgICAgICAgICAgICAgICAgICAgICAgICAgICAgICAgICAg ICAgICAgICAgICAgICAgICAgICAgICAgICAgICAgICAgICAgICAgICAgICAgICAgDQogICAgICAgICAg ICAgICAgICAgICAgICAgICAgICAgICAgICAgICAgIC AgICAgICAgICAgICAgICAgICAgICAgICAgICAgICAgICAgICAgICAgICAgICAgICAgICAgICAgICAgDQ ogICAgICAgICAgICAgICAgICAgICAgICAgICAgICAgICAgICAgICAgICAgICAgICAgICAgICAgICAgIC AgICAgICAgICAgICAgICAgICAgICAgICAgICAgICAg ICAgICAgICAgDQogICAgICAgICAgICAgICAgICAgICAgICAgICAgICAgICAgICAgICAgICAgICAgICAg ICAgICAgICAgICAgICAgICAgICAgICAgICAgICAgICAgICAgICAgICAgICAgICAgICAgDQogICAgICAg ICAgICAgICAgICAgICAgICAgICAgICAgICAgICAgIC AgICAgICAgICAgICAgICAgICAgICAgICAgICAgICAgICAgICAgICAgICAgICAgICAgICAgICAgICAgIC AgDQogICAgICAgICAgICAgICAgICAgICAgICAgICAgICAgICAgICAgICAgICAgICAgICAgICAgICAgIC AgICAgICAgICAgICAgICAgICAgICAgICAgICAgICAg ICAgICAgICAgICAgDQogICAgICAgICAgICAgICAgICAgICAgICAgICAgICAgICAgICAgICAgICAgICAg ICAgICAgICAgICAgICAgICAgICAgICAgICAgICAgICAgICAgICAgICAgICAgICAgICAgICAgDQogICAg ICAgICAgICAgICAgICAgICAgICAgICAgICAgICAgIC AgICAgICAgICAgICAgICAgICAgICAgICAgICAgICAgICAgICAgICAgICAgICAgICAgICAgICAgICAgIC NzYXAeWEz9C0hfECSfBUXbLF2sPGc5Tu9+KEjYWqNrYRK5ckRsfR1GFX6cl5KgRVhbIYUir9OfCIv7BN 5GOEXbBRikFQ1FPNfyha4SYNPuIQCpkJSKe2nbObCg BOZ4LIFsIevyFG5KXOCiE4pfguWbFIWpBRGEUG3SAeFdH2NgwS17WFTVJq9+ISngohZuUlnYAqU7REEc q9MpSSc2KU2YBXNlXkzxw0CbCzVdPJMGCJriYA7YEKP8YZIsIQFvMp4XQWYzP503guZwMT8YIq1NQcRl DF9lfg1KOlKkZJDxFunOBis7GFcyTT8DpLGvWRbKll 2eriAqibEPv6VsfqLloGTIzwWmwUCxwTFYMVNuGUKweYIKSGZYCOFcyUBbFk8rSa3pHSP9IDOfWvUaOK PTQN0DQXYgQLHvuAPfKJReQBHEWA6BJDmxVTE7ZHUxxsIgbWDyAKwmEI1VGVFyrdTtPKzeBUYOIRg+Pg 5HLQ4be5GpVAczTBVdQO0vxi7AWYqPHxFmJ5Z3vHYm N3S3NQzoJg2TAHUpDUEbZTnsJJAHWNwaTN0WHD5bgzH0IR6XaNTjNLMuWHMpvHTxWSk3Z28xtPAxDWan ZU1XVJF+Geno+Jc8GRLJyXPFfGMMvNhUlFKIGHcJqH3EhP7IMm7AqP3FmTP03kEeqtbNyVEngSL7ZHT6a YTHvUWSWOU5YlUStkZ8iccSnEHIlCXARKzQfW66coW HiKKYzEEY3CARjSn6VPPVtL9FehwLivYhtnsNpGBHsYKCFXT2ZUTwrxnMjrVZrmFksXQ49tDokJX6YDx 3LSwKuTH4hkf3KsWCqKf4OPDGhLc9NIOQqNWWrGRWkSZQ4LDPcJpRrRMwlBRZiRURjLBR7ORFoTSUdEY 8PXeJqIKGxJJI7CeGzNRAzMRYyyb8KAWHuQARxSUW6 SCEeGSUwBNSaBMdtYDAsZSXtHYV5ZZLhIAKgSQ4RBoEbEYDfJMA6MZyqEETeBZMelg3NUNOzBHFcOFl9 UhVdNFMqEUWwFPzaFALgIIMzVtAoVFUcUVQwAF9IHlVnXLNpLCA9FWspFYHjETSozo1XNNCeUKHqUhN5 XqSsBWRqZFUdVZdwNASjEMQ9OZG8TNMiSQNuBI6EPu YxLKYsBYDcKQtmWVNmUJMaoo8GGIAkIOXaIMMcOECeIDRuNPFfDNbwPWDxTFO8Cyh2QDYnQKUiFV0NHa GqRURcIFCtGMQoHMSiTOFrxb1JETBaUKVeGzFpZTReVLDiGHYzJJifEJGnBQM2ISH8UEKuSCKwVQ3ZGa ApGXEtFIN0KHCaXKWfEOIcsv1MREXtBFNmScDkQSUw WQVsTZHoSPjpQNYxLEX1JAO2CBZsMRHrZC0LZyYyRYLdFTn3XFaoJPUhSWUohm1BOZUdKYGzQEl0SOAz PLIqTGFcFMm8hfEadLVnERu8AB8NY2RkeyIcEaCKJi3Ix940NVVfOPCaWx3OL3yrZr7dCSUpBGYVSu3T EIe5Rsp0HJKvCeHuUJvfSiYnZHDpANc1GkMhJIS8MI FiYWM+MXm4ICtxAlX6KFD5J6C1ZJZjTYB3ScXpTQG7RGBvXSFdVa0lXPQLKg4+DQpzdGFydHhyZWYNCj Q9OGV3XAmkYWLNDn9T ID Date Data Source [id number] 10/31/2019 02:13:24 PM [facility] Name Value Range Interpretation Code Description Data Claribel rce(s) Supporting Document(s) Progress Note [facility] MOBTOg9rKgCLUyDk00/JHTpfRFTkk6SpXQikGJs2NWdhNMJrA4ErMRT5qI6oBVI8QHqBBkErLEptXfA5 lbm [file] vvUUNpDH9BSZCCZ0NDWh== ID Date Data Source [id number] 10/31/2019 01:56:[address] [facility] Name Value Range Interpretation Code Description Data Claribel rce(s) Supporting Document(s) Progress Note [facility] CTUNYg1wAhONMpOr10/UMDwmHMXjb8XuVRfqJIk8DFcqWLZfD0IuRHT2pI4iMCB6WYgYOgRjQEycKmO2 lbm [file] M2XjywBZ1rBMFJIw5+HTdgpWShkResLYLJEbK6UVc0NZosERUVNc4Y ID Date Data Source [id number] 10/29/2019 02:09:45 PM [facility] Value Range Interpretation Code Description Data Claribel rce(s) Supporting Document(s) Thyroperoxidase Ab [Units/volume] in Serum or Plasma 4.1 IU/mL <9.0 [facility] ID Date Data Source [id number] 10/29/2019 02:12:25 PM [facility] Value Range Interpretation Code Description Data Claribel rce(s) Supporting Document(s) Calcidiol [Mass/volume] in Serum or Plasma 14 ng/mL >30 L [facility] ID Date Data Source [id number] 10/29/2019 01:33:24 PM [facility] Value Range Interpretation Code Description Data Claribel rce(s) Supporting Document(s) Thyroxine (T4) free [Mass/volume] in Serum or Plasma 1.14 ng/dL 0.93- 1.70 [facility] ID Date Data Source [id number] 10/29/2019 01:33:24 PM [facility] Value Range Interpretation Code Description Data Claribel rce(s) Supporting Document(s) Cholesterol [Mass/volume] in Serum or Plasma 230 mg/dL <200 H [facility] Triglyceride [Mass/volume] in Serum or Plasma 309 mg/dL <150 H [facility] Cholesterol in HDL [Mass/volume] in Serum or Plasma 39 mg/dL >50 L [facility] Cholesterol in LDL [Mass/volume] in Serum or Plasma by calcu lation 129 mg/dL <100 H [facility] Cholesterol in VLDL [Mass/volume] in Serum or Plasma by calc ulation 62 mg/dl 16-42 H [facility] Cholesterol non HDL [Mass/volume] in Serum or Plasma 191 mg/dL <130 H [facility] ID Date Data Source [id number] 10/29/2019 01:33:24 PM [facility] Name Value Range Interpretation Code Description Data Claribel rce(s) Supporting Document(s) Thyrotropin [Units/volume] in Serum or Plasma 2.550 u[IU]/mL 0.270-4. 200 [facility] ID Date Data Source [id number] 10/30/2019 12:04:31 PM [facility] Value Range Interpretation Code Description Data Claribel rce(s) Supporting Document(s) Gliadin peptide IgA Ab [Units/volume] in Serum <20.0 [facility] Negative Gliadin peptide IgG Ab [Units/volume] in Serum <20.0 [facility] Negative Tissue transglutaminase IgA Ab [Units/volume] in Serum 2.3 CU <20 .0 [facility] Negative IgA [Mass/volume] in Serum or Plasma 454 mg/dL 70-400 H [facility] ID Date Data Source [id number] 10/29/2019 09:32:56 AM [facility] Value Range Interpretation Code Description Data Claribel rce(s) Supporting Document(s) Glucose [Mass/volume] in Capillary blood by Glucometer 147 mg/dL 70- 140 H [facility] ID Date Data Source [id number] 10/29/2019 09:11:07 AM [facility] Value Range Interpretation Code Description Data Claribel rce(s) Supporting Document(s) Hemoglobin A1c/Hemoglobin.total in Blood 10.6 % 4.0-6.0 H [facility] Glucose mean value [Mass/volume] in Blood Estimated fr om glycated hemoglobin 258 mg/dL <126 H [facility] Procedure Social History Code Duration Value Status Description Data Source(s ) Alcohol intake 08/19/2020 12:00:00 AM EDT Current non-d clyde of alcohol (finding) completed Current non-drinker of alcohol (finding) [facility] Tobacco use and exposure 08/19/2020 12:00:00 AM EDT Never used co mpleted Never used [facility] Smoking 08/19/2020 12:00:00 AM EDT Never smoker completed Never s [facility] Alcohol intake 05/14/2020 12:00:00 AM EDT Current non-d clyde of alcohol (finding) completed Current non-drinker of alcohol (finding) [facility] Smoking 05/14/2020 12:00:00 AM EDT Never smoker completed Never s [facility] Smoking 05/06/2020 12:00:00 AM EDT Patient has never smoked co mpleted Patient has never smoked MEDENT ([facility]) Alcohol intake 11/01/2019 12:00:00 AM EST Current non-d clyde of alcohol (finding) completed Current non-drinker of alcohol (finding) [facility] Smoking 11/01/2019 12:00:00 AM EST Never smoker completed Never s [facility] Vital Signs ID Date Data Source UNK Name Value Range Interpretation Code Description Data Source(s) Body weight 2352 [oz_av] 2352 [oz_av] CYNDI ([facility]) Systolic blood pressure 105 mm[Hg] 105 mm[Hg] A THENA ([facility]) Body mass index (BMI) [Ratio] 25.2 kg/m2 25.2 k g/m2 CYNDI ([facility]) Body height 64 [in_i] 64 [in_i] CYNDI ([facility]) Diastolic blood pressure 66 mm[Hg] 66 mm[Hg] CYNDI ([facility]) Body weight 73.030 kg 73.030 kg MEDENT ([facility], ) [place] body weight 120 [lb_av] 120 [lb_av] MEDEN T ([facility]) Body mass index (BMI) [Ratio] 27.6 kg/m2 27.6 k g/m2 [facility] ([facility]) Body weight 161.00 [lb_av] 161.00 [lb_av] MEDEN T ([facility]) Body height 64 [in_i] 64 [in_i] MEDENT ([facility]) 5'4" Body weight 73.030 kg 73.030 kg MED[facility] ([facility]) [place] body weight 120 [lb_av] 120 [lb_av] MEDEN T ([facility]) Body mass index (BMI) [Ratio] 27.6 kg/m2 27.6 k g/m2 MEDENT ([facility], ) Body weight 161.00 [lb_av] 161.00 [lb_av] MEDEN T ([facility]) Body height 64 [in_i] 64 [in_i] MEDENT ([facility]) 5'4" Body weight 73.030 kg 73.030 kg [facility] ([facility]) Body mass index (BMI) [Ratio] 27.6 kg/m2 27.6 k g/m2 MED[facility] ([facility]) Body weight 161.00 [lb_av] 161.00 [lb_av] MEDEN T ([facility]) Body height 64 [in_i] 64 [in_i] MEDENT ([facility]) 5'4" Body weight 2480 [oz_av] 2480 [oz_av] CYNDI ([facility]) Systolic blood pressure 115 mm[Hg] 115 mm[Hg] A THENA ([facility]) Body height 64 [in_i] 64 [in_i] CYNDI ([facility]) Diastolic blood pressure 83 mm[Hg] 83 mm[Hg] CYNDI ([facility]) Body mass index (BMI) [Ratio] 27.5 kg/m2 27.5 k g/m2 MEDENT ([facility]) Body height 64 [in_i] 64 [in_i] MEDENT ([facility], [facility]) 5'4" Body weight 160.00 [lb_av] 160.00 [lb_av] MEDEN T ([facility], [facility]) Body temperature 98.4 [degF] 98.4 [degF] [facility] ([facility]) Oxygen saturation in Arterial blood by Pulse oximetry 98 % 98 % [facility] ([facility], [facility]) Heart rate 96 /min 96 /min [facility] ([facility], [facility]) Diastolic blood pressure 107 mm[Hg] 107 mm[Hg] MEDENT ([facility], [facility]) Systolic blood pressure 153 mm[Hg] 153 mm[Hg] M EDENT ([facility], [facility]) Body mass index (BMI) [Ratio] 27.5 kg/m2 27.5 k g/m2 MEDENT ([facility], [facility]) Body height 64 [in_i] 64 [in_i] MEDENT ([facility], [facility]) 5'4" Body weight 160.00 [lb_av] 160.00 [lb_av] MEDEN T ([facility], [facility]) Body temperature 98.1 [degF] 98.1 [degF] MED[facility] ([facility], [facility]) Oxygen saturation in Arterial blood by Pulse oximetry 98 % 98 % [facility] ([facility], [facility]) Respiratory rate 17 /min 17 /min [facility] ( [facility], [facility]) Heart rate 98 /min 98 /min MED[facility] ([facility], [facility]) Diastolic blood pressure 70 mm[Hg] 70 mm[Hg] MED[facility] ([facility], [facility]) Systolic blood pressure 105 mm[Hg] 105 mm[Hg] M EDENT ([facility], [facility]) Body weight 2740 [oz_av] 2740 [oz_av] CYNDI ([facility]) Systolic blood pressure 118 mm[Hg] 118 mm[Hg] A THENA ([facility]) Diastolic blood pressure 83 mm[Hg] 83 mm[Hg] CYNDI ([facility]) Body mass index (BMI) [Ratio] 26.6 kg/m2 26.6 k g/m2 MEDENT ([facility]) Body height 64 [in_i] 64 [in_i] MEDENT ([facility], [facility]) 5'4" Body weight 155.00 [lb_av] 155.00 [lb_av] MEDEN T ([facility], [facility]) Body temperature 98.7 [degF] 98.7 [degF] MEDENT ([facility], [facility]) Oxygen saturation in Arterial blood by Pulse oximetry 98 % 98 % [facility] ([facility], [facility]) Respiratory rate 20 /min 20 /min MEDENT ( [facility], [facility]) Heart rate 94 /min 94 /min MEDENT ([facility], [facility]) Diastolic blood pressure 80 mm[Hg] 80 mm[Hg] MEDENT ([facility], [facility]) Systolic blood pressure 111 mm[Hg] 111 mm[Hg] [facility] ([facility], [facility]) ID Date Data Source [id number] 08/19/2020 10:38:24 AM [facility] Name Value Range Interpretation Code Description Data Source(s) WEIGHT RECORDED 155 lb 155 lb [facility] Body height Measured 64.5 in 64.5 in [facility] ID Date Data Source [id number] 06/17/2020 01:45:15 PM EDT [facility] Value Range Interpretation Code Description Data Source(s) WEIGHT RECORDED 151 lb 151 lb [facility] Body height Measured 64.5 in 64.5 in [facility] ID Date Data Source [id number] 05/14/2020 10:11:26 AM [facility] Value Range Interpretation Code Description Data Source(s) WEIGHT RECORDED 156.75 lb 156.75 lb [facility] Body height Measured 64.5 in 64.5 in [facility] ID Date Data Source [id number] 11/01/2019 03:40:11 PM [facility] Value Range Interpretation Code Description Data Source(s) WEIGHT RECORDED 163.58 lb 163.58 lb [facility] Body height Measured 64.5 in 64.5 in [facility] Patient Treatment Plan of Care Planned Activity Planned Date Details Description Data Source (s) Adhesive Remover Wipes XL 07/02/2020 12:00:[address] [facility] Dexcom G6 Instrument And Electrical Technician Device 07/02/2020 12:00:[address] [facility] Dexcom G6 Sensor 07/02/2020 12:00:[address] [facility] Dexcom G6 Transmitter 07/02/2020 12:00:[address] [facility] Isopropyl Alcohol 0.7 ML/ML Medicated Pad 07/02/2020 12:00:00 AM [facility] Skin Prep Wipes 07/02/2020 12:00:[address] [facility] Tegaderm Film 4"x4-3/4" 07/02/2020 12:00:[address] [facility] Ondansetron 4 MG Oral Tablet 05/06/2020 12:00:[address] [facility] Insulin Degludec 100 UNIT/ML Subcutaneou s Solution Pen-injector (Tresiba FlexTouch) 04/01/2020 12:00:00 AM [facility] atorvastatin 40 MG Oral Tablet 03/25/2020 12:00:[address] [facility] Cholecalciferol 2000 UNT Oral Tablet 11/23/2019 12:00:00 AM [facility] Ergocalciferol 37610 UNT Oral Capsule 11/23/2019 12:00:00 AM [facility] OneTouch Ultra Blue In Vitro Strip 10/30/2019 12:00:00 AM [facility] OneTouch Ultra 2 w/Device Kit 10/29/2019 12:00:00 AM [facility] Glucagon 3 MG/DOSE Nasal Powder (BAQSIMI ONE PACK) 10/29/2019 12 :00:00 AM [facility] Prednisone 20 MG Oral Tablet 10/22/2019 12:00:00 AM [facility] Insulin, Aspart, Human 100 UNT/ML Injectable Solution 04/03/2019 12:00:00 AM [facility] ospital Ergocalciferol 55108 UNT Oral Capsule 02/16/2019 12:00:[address] [facility] Lisinopril 5 MG Oral Tablet 02/12/2019 12:00:[address] [facility] ONE TOUCH ULTRA TEST test strip 02/06/2019 12:00:[address] [facility]
[2020-12-10] MEDS: FLUTICASONE HFA 220 MCG 12 GM INHALER (FLOVENT) INH SCH (20:00)
[2020-12-10] MEDS ORDERED: INSULIN IV RATE CHANGE DOCUMENTATION ML/HR XX SCH (20:00)
[2020-12-10] MEDS: INSULIN REGULAR IN 0.9 % NACL 100 UNIT in IV 1 EA IV SCH ×2 (20:29)
[2020-12-10] MEDS ORDERED: NS 1,000 ML IV SCH (20:30)
--- NOTE | 2020-12-10 20:31 | REPVR ---
PROCEDURE INFORMATION: Exam: CT Head Without Contrast Exam date and time: 12/10/2020 8:00 PM Age: 35 years old Clinical indication: Pain; Headache TECHNIQUE: Imaging protocol: Computed tomography of the head without contrast. Axial and coronal reformatted images were created and reviewed. Radiation optimization: All CT scans at this facility use at least one of these dose optimization techniques: automated exposure control; mA and/or kV adjustment per patient size (includes targeted exams where dose is matched to clinical indication); or iterative reconstruction. COMPARISON: CT Head without contrast 05/26/2020 2:36 PM FINDINGS: Brain: No CT evidence of acute intracranial hemorrhage or acute territorial infarction. No significant mass effect or midline shift. Basal cisterns patent. Cerebral ventricles: Normal in size and configuration. Bones/joints: No acute osseous abnormality. Paranasal sinuses: Unremarkable. No fluid levels. Mastoid air cells: Grossly unremarkable. Soft tissues: Grossly unremarkable. IMPRESSION: No CT evidence of acute intracranial pathology. Electronically signed by: Femi Andrade On 12/10/2020 20:31:30 PM
[2020-12-10 21:10] LABS: HEMOGLOBIN A1c 11.1 %
[2020-12-10 21:24] LABS: CALCIUM LEVEL 9.9 MG/DL (8.5-10.1); CREATININE FOR GFR 1.67 MG/DL (0.55-1.30); GLOMERULAR FILTRATION RATE 37.6 (>60); PHOSPHORUS LEVEL 2.5 MG/DL (2.5-4.9); POTASSIUM SERUM 4.7 MEQ/L (3.5-5.1)
[2020-12-10 21:55] LABS: VENOUS BASE EXCESS -16.7 (-2.0-2.0); VENOUS HCO3 6.8 MEQ/L (23.0-27.0); VENOUS O2 SATURATION 99.4 % (60.0-80.0); VENOUS PARTIAL PRESSURE CO2 14.3 mmHg (38.0-50.0); VENOUS PARTIAL PRESSURE O2 213.7 mmHg (30.0-50.0); VENOUS PH 7.294 UNITS (7.330-7.430); VENOUS STANDARD HCO3 12.3 MEQ/L; VENOUS TOTAL CO2 7.2 MEQ/L (24.0-28.0)
[2020-12-10] MEDS: ONDANSETRON 4MG/2ML VIAL IV PRN (23:14)
--- NOTE | 2020-12-10 23:15 | IPNPDOC ---
Text Note Date of Service The patient was seen on 12/10/20. NOTE TIME OF SERVICE 858 PM is a 35 yr old w a hx of DM1, DLP, HTN, esophagitis, gastritis, endometriosis and trach placement who presented w c/o WALKER n/v she denies having a bdominal pain. She will be admitted for management of DKA, CLYDE and SIRS of unclear cause. Rest per 's H&P VS,[place], I+O VS, [place], I+O Laboratory Tests 12/10/20 17:58 12/10/20 20:35 Vital Signs Date Time Temp Pulse Resp B/P (MAP) Pulse Ox O2 Delivery O2 Flow Rate FiO2 12/10/20 19:45 105 16 113/70 (84) 100 Room Air 12/10/20 15:56 98.5 AGNES SCOTT MD Dec 10, 2020 23:15
[2020-12-11] VITALS (14 sets, daily range): BP systolic 109–155; BP diastolic 64–99
--- NOTE | 2020-12-11 00:04 | HPEPDOC ---
[facility] Medical History & Physical Date of Admission Dec 10, 2020 Date of Service: Dec 10, 2020 Attending Physician: AGNES SCOTT MD History and Physical CHIEF COMPLAINT: Nausea vomiting and headache HISTORY OF PRESENT ILLNESS: Patient is a 35 year old female with a past medical history significant for diabetes mellitus type 1 with multiple hospitalizations for DKA, and tracheal stenosis s/p tracheostomy placement who presented to the [facility] ER with complaint of nausea, vomiting and headache that started this morning. She stated that a few days ago she had developed some dysuria and believed that she may have a UTI. She was not given any antibiotics as she was told that she did not have a UTI. Over the past few days she has developed nausea and vomiting and now a headache. On presentation to the ER the patient was vitally stable. Laboratory studies demonstrated anion gap metabolic acidosis, hyperglycemia, and elevated beta hydroxybutyrate. The patient was started on an insulin drip and given IV fluids. Chest x-ray was unrevealing. Hospitalist service was consulted for further evaluation and management PAST MEDICAL HISTORY: 1. Diabetes Mellitus Type 1 2. History of DKA with multiple hospitalizations 3. Tracheal stenosis s/p tracheostomy tube placement PAST SURGICAL HISTORY: 1. Multiple tracheostomy surgeries 2. Colonoscopy SOCIAL HISTORY: Patient is independent with ADLs at baseline. She is a nonsmoker. Denies alcohol or IV/illicit drug use FAMILY HISTORY: Patients mother from cancer last summer. Her father has hypertension and COPD ALLERGIES: Please see below. REVIEW OF SYSTEMS: CONSTITUTIONAL: Denies fevers, chills, unintentional weightloss or weight gain. Denies night sweats HEENT: Denies dysphagia or odonyphagia. Denies changes in vision. Admits to headache CARDIOVASCULAR: Denies chest pain or pressure. Denies palpitations or feelings of the heart racing RESPIRATORY: Denies shortness of breath. Denies cough. Denies wheeze. GASTROINTESTINAL: Admits to nausea and vomiting that started today. denies diarrhea or constipation. Denies abdominal pain GENITOURINARY: Admits to dysuria and increased frequency/urgency. Denies hematuria SKIN: Denies rashes or lesions MUSCULOSKELETAL: Denies muscle weakness NEUROLOGICAL: Denies changes in gait or speech PSYCHIATRIC: Denies depression or anxiety ENDOCRINE: Admits to diabetes. Denies heat intolerance or cold intolerance. HEMATOLOGIC/LYMPHATIC: Denies easy bruising or bleeding. Denies history of DVT or PE HOME MEDICATIONS: Please see below. PHYSICAL EXAMINATION: VITAL SIGNS: Temperature 98.5, pulse 109, respiratory rate 16, blood pressure 140/96, pulse oximetry 100% on room air. GENERAL APPEARANCE: Patient is awake, alert, and oriented. Appears in no acute distress HEENT: Atraumatic, normocephalic. eyes are nonicteric. Trachea is midline. Mucous membranes are dry. Tracheostomy tube is in place. CARDIOVASCULAR: Normal S1, S2. Tachycardic rate. Regular rhythm. No clicks, rubs, or murmurs. LUNGS: Clear breath sounds bilaterally. No wheezes, rhonchi, or rales. Good respiratory effort ABDOMEN: Soft, nondistended. Normoactive bowel sounds. nontender. No rebound tenderness or guarding EXTREMITIES: No edema. Full and equal pulses bilaterally NEUROLOGICAL: No focal neurological deficits PSYCHIATRIC: Mood and affect appear appropriate LABORATORY DATA: See below. IMAGING: INDICATION: cough, sob. COMPARISON: Comparison chest x-ray July 10, 2020. TECHNIQUE: Portable upright AP chest radiograph. FINDINGS: The lungs are well inflated and free of infiltrate. Pleural angles are sharp. Heart size is normal. Pulmonary vasculature is not increased. Tracheostomy tube is again seen in good position. IMPRESSION: No active disease. Tracheostomy tube in place. No infiltrates seen.. PROCEDURE INFORMATION: Exam: CT Head Without Contrast Exam date and time: 12/10/2020 8:00 PM Age: 35 years old Clinical indication: Pain; Headache TECHNIQUE: Imaging protocol: Computed tomography of the head without contrast. Axial and coronal reformatted images were created and reviewed. Radiation optimization: All CT scans at this facility use at least one of these dose optimization techniques: automated exposure control; mA and/or kV adjustment per patient size (includes targeted exams where dose is matched to clinical indication); or iterative reconstruction. COMPARISON: CT Head without contrast 05/26/2020 2:36 PM FINDINGS: Brain: No CT evidence of acute intracranial hemorrhage or acute territorial infarction. No significant mass effect or midline shift. Basal cisterns patent. Cerebral ventricles: Normal in size and configuration. Bones/joints: No acute osseous abnormality. Paranasal sinuses: Unremarkable. No fluid levels. Mastoid air cells: Grossly unremarkable. Soft tissues: Grossly unremarkable. IMPRESSION: No CT evidence of acute intracranial pathology. Electronically signed by: Femi Andrade On 12/10/2020 20:31:30 PM MICROBIOLOGY: Please see below. ASSESSMENT: Patient is a 35 year old female with a past medical history signif icant for diabetes mellitus type 1 and tracheal stenosis s/p tracheostomy tube placement who presented to the [facility] ER with complaint of nausea, vomiting, and headache and found to be in DKA. Patient was admitted to hospitalist service for further evalution and mangement . PLAN: 1. Anion-gap metabolic acidosis 2/2 Diabetic Ketoacidosis -Patient has a history of IDDM. ABG on presentation demonstrated a pH of 7.11 pco2 16.7. Serum bicarb of 10. Precipitant of the patients DKA is unclear. She states that she has been compliant with her medications. She does state that she believes she has a UTI but otherwise denies any other issues. She states that today she had developed nausea and vomiting and subsequently a headache but denies any fevers, chills, or acute illnesses. -Blood cultures pending. -Patient started on insulin drip. s/p 2L NS bolus. Continued NS at 250ml/hr -Q4H BMP. Will monitor and replete electrolytes as necessary. -NPO while on insulin drip. Once anion gap closes will transition to long acting insulin and start diet. 2. SIRS/Sepsis -Patient is currently in sinus tachycardia. She has a slight elevation in WBC. She is not febrile. No lactic acidosis. No tachypnea. Patient may be septic possibly from a UTI. She is currently on Rocephin. However, her sinus tachy cardia is likely secondary to her dehydration from DKA. Will continue to monitor 3. Headache, Nausea and vomiting -Patient presented with nausea and vomiting and subsequently complained of a headache. Her nausea and vomiting is likely secondary to her being in DKA as this had started today. Unlikely that her nausea and vomiting precipitated her DKA. Her headache appears to be secondary to her dehydration. She has been given antiemetics and Tylenol with improvement in headache -CT scan of head was ordered and in unremarkable -Zofran prn nausea. 4. History of tracheal stenosis s/p tracheostomy -Patient currently has a tracheostomy. It appears that in the past she had several traumatic intubations and in May 2020 was intubated for acute respiratory failure. During that hospitalization she was extubated however developed stridor and respiratory distress s/p extubation. Reintubation was attempted however unsuccessful due laryngeal edema. An emergent tracheostomy was performed at the time. Patient now has tracheal stenosis. She follows with ENT in [place] currently and has undergone several procedures since tracheostomy tube placement -Patient is currently on room air on trach collar -Continue with tracheostomy care 5. UTI -Patient complains of burning with urination. U/A was dirty. Culture pending. Will start Rocephin 1g q24h 6. DVT Prophylaxis -Heparin 5,000 units q8h Vital Signs Vital Signs Date Time Temp Pulse Resp B/P (MAP) Pulse Ox O2 Delivery O2 Flow Rate FiO2 12/10/20 19:45 105 16 113/70 (84) 100 Room Air 12/10/20 15:56 98.5 Laboratory Data Labs 24H Laboratory Tests 2 12/10/20 13:34: Urine Color YELLOW, Urine Appearance HAZY, Urine pH 5.0, Urine Specific [place] 1.023, Urine Protein 3+H, Urine Glucose (UA) 3+H, Urine Ketones 2+H, Urine Blood 2+H, Urine Nitrite NEGATIVE, Urine Bilirubin NEGATIVE, Urine Urobilinogen 0.2, Urine Leukocyte Esterase 2+H, Urine WBC (Auto) 16H, Urine RBC (Auto) 7H, Urine Hyaline Casts (Auto) 0, Urine Bacteria (Auto) 1+H, Urine Squamous Epithelial Cells 1, Urine Mucus (Auto) SMALL, Urine Sperm (Auto) 12/10/20 14:21: POC Glucose (Misc Panel) 290H, POC Sodium (Misc Panel) 136, POC Potassium (Misc Panel) 4.8, POC Chloride (Misc Panel) 109, POC Total CO2 (Misc Panel) 12.0L, POC Blood Urea Nitrogen (Misc Panel 25, POC Ionized Calcium (Misc Panel) 5.6H, POC Creatinine (Misc Panel) 1.1, POC Hematocrit (Misc Panel) 46.0 12/10/20 14:24: POC Beta HCG, Quantitative < 5.0 12/10/20 17:08: Blood Gas Bicarbonate Standard 9.1L, Arterial Blood pH 7.117*L, Arterial Blood Partial Pressure CO2 16.7*L, Arterial Blood Partial Pressure O2 125.1H, Arterial Blood Total CO2 5.8L, Arterial Blood HCO3 5.3L, Arterial Blood Base Excess - 22.0L, Arterial Blood Oxygen Saturation 98.2 1/27/21 17:09: B-Hydroxybutyrate > 46.00H 12/10/20 17:41: Estimated Mean Plasma Glucose 272H, Hemoglobin A1c 11.1 12/10/20 17:56: Bedside Glucose (Misc Panel) 322H 12/10/20 17:58: Immature Granulocyte % (Auto) 0.3, Neutrophils (%) (Auto) 81.9H, Lymphocytes (%) (Auto) 12.0L, Monocytes (%) (Auto) 5.4H, Eosinophils (%) (Auto) 0.0, Basophils (%) (Auto) 0.4, Neutrophils # (Auto) 8.8H, Lymphocytes # (Auto) 1.3L, Monocytes # (Auto) 0.6, Eosinophils # (Auto) 0.0, Basophils # (Auto) 0.0, Nucleated Red Blood Cells % (auto) 0.0, Lactic Acid Level 1.2, Magnesium Level 2.3, Total Bilirubin 0.4, Direct Bilirubin < 0.1, Aspartate Amino Transf (AST/SGOT) 12, Alanine Aminotransferase (ALT/SGPT) 20, Alkaline Phosphatase 108, Total Protein 8.2, Albumin 3.7, Albumin/Globulin Ratio 0.8L, Lipase 58L 12/10/20 19:46: Coronavirus (COVID-19)(PCR) NEGATIVE 12/10/20 20:27: Bedside Glucose (Misc Panel) 206H 12/10/20 20:35: Anion Gap 18H, Glomerular Filtration Rate 37.6L, Osmolality 315H, Calcium Level 9.9, Phosphorus Level 2.5 12/10/20 21:34: Bedside Glucose (Misc Panel) 126H 12/10/20 21:50: Blood Gas Puncture Site UNKNOWN, Blood Gas Bicarbonate Standard 12.3, Venous Blood pH 7.294L, Venous Blood Partial Pressure CO2 14.3L, Venous Blood Partial Pressure O2 213.7H, Venous Blood Total Carbon Dioxide 7.2L, Venous Blood HCO3 6.8L, Venous Blood Oxygen Saturation 99.4H, Venous Blood Base Excess -16.7L CBC/BMP Laboratory Tests 12/10/20 17:58 12/10/20 20:35 Microbiology Microbiology 12/10/20 Blood Culture, Received Pending 12/10/20 Blood Culture, Received Pending 12/10/20 Urine Culture, Received Pending Home Medications Scheduled Atorvastatin Calcium (Atorvastatin Calcium) 40 Mg Tablet, 40 MG PO QHS Beclomethasone Dipropionate (Qvar Redihaler) 80 Mcg/Act Hfa.aeroba, 1 PUFF INH DAILY Insulin Degludec (Tresiba Flextouch U-100) 100 Unit/1 Ml Insuln.pen, 20 UNIT SC QHS Insulin Degludec (Tresiba Flextouch U-100) 100 Unit/1 Ml Insuln.pen, 20 UNITS SC QAM Insulin Human Lispro (Novolog) 100 U/Ml Inj, 1 DOSE SC ACHS PER SLIDING SCALE Lisinopril (Lisinopril) 10 Mg Tablet, 10 MG PO DAILY Multivitamins (Thera M Plus Tablet) 1 Each Tablet, 1 TAB PO DAILY Scheduled PRN Acetaminophen (Acetaminophen) 500 Mg Tablet, 500 MG PO Q4H PRN for PAIN Ondansetron HCl (Ondansetron HCl) 4 Mg Tablet, 4 MG PO Q6H PRN for NAUSEA OR VOMITING Allergies Coded Allergies: TREES (Verified Allergy, Unknown, 12/10/20) mold (Verified Allergy, Unknown, 12/10/20) A-FIB/CHADSVASC A-FIB History Current/History of A-Fib/PAF?: No GME ATTESTATION GME ATTESTATION My faculty preceptor for this patient encounter was physically present during the encounter and was fully available. All aspects of the patient interview, examination, medical decision making process, and medical care plan development were reviewed and approved by the faculty preceptor. The faculty preceptor is aware and concurs with the plan as stated in the body of this note and will attest to such by his/her cosignature. ATTENDING NOTE TIME OF SERVICE 858 PM is a 35 yr old w a hx of DM1, DLP, HTN, esophagitis, gastritis, endometriosis and trach placement who presented w c/o WALKER n/v she denies having abdominal pain. She will be admitted for management of DKA, CLYDE and SIRS of u nclear cause. Rest per 's H&P MARY WANG DO Dec 10, 2020 23:15 AGNES SCOTT MD Dec 16, 2020 14:33
[2020-12-11 00:24] LABS: VENOUS BASE EXCESS -17.3 (-2.0-2.0); VENOUS HCO3 9.6 MEQ/L (23.0-27.0); VENOUS O2 SATURATION 97.6 % (60.0-80.0); VENOUS PARTIAL PRESSURE CO2 26.9 mmHg (38.0-50.0); VENOUS PARTIAL PRESSURE O2 98.1 mmHg (30.0-50.0); VENOUS PH 7.171 UNITS (7.330-7.430); VENOUS STANDARD HCO3 11.7 MEQ/L; VENOUS TOTAL CO2 10.4 MEQ/L (24.0-28.0)
[2020-12-11 00:49] LABS: CALCIUM LEVEL 9.4 MG/DL (8.5-10.1); CREATININE FOR GFR 1.51 MG/DL (0.55-1.30); GLOMERULAR FILTRATION RATE 42.2 (>60); PHOSPHORUS LEVEL 2.4 MG/DL (2.5-4.9); POTASSIUM SERUM 4.4 MEQ/L (3.5-5.1)
[2020-12-11] MEDS: INSULIN IV RATE CHANGE DOCUMENTATION ML/HR XX SCH ×14 (00:59→21:19)
[2020-12-11] MEDS: ATORVASTATIN 20 MG TAB PO SCH ×2 (01:15→20:19)
[2020-12-11] MEDS: ACETAMINOPHEN TAB 650MG DOSE (2X325MG) PO PRN ×2 (01:16→18:18)
[2020-12-11] MEDS: cefTRIAXone SOD 1 GM in D5W MINI-BAG PLUS 50 ML IV SCH ×2 (01:17→21:55)
[2020-12-11] MEDS: D5W/0.45% SODIUM CHLORIDE 1,000 ML IV SCH ×3 (01:17→12:00)
[2020-12-11 01:50] LABS: POTASSIUM RANDOM URINE 55.4 MEQ/L
--- NOTE | 2020-12-11 03:57 | REP ---
INDICATION: right IJ line placement COMPARISON: 12/10/2020 TECHNIQUE: Portable AP view of the chest FINDINGS: Right IJ line with tip in the right atrium. Tracheostomy in stable satisfactory position. The mediastinum and cardiac silhouette are stable and within normal limits for portable technique. The lung pike are clear without acute consolidation, effusion, or pneumothorax. Skeletal structures are intact. IMPRESSION: No acute cardiopulmonary process appreciated. <Electronically signed by Sixto Trimble > 12/11/20 [id number]
[2020-12-11] MEDS: ONDANSETRON 4MG/2ML VIAL IV PRN ×2 (04:01→09:20)
[2020-12-11 04:06] LABS: VENOUS BASE EXCESS -14.3 (-2.0-2.0); VENOUS HCO3 12.1 MEQ/L (23.0-27.0); VENOUS O2 SATURATION 94.9 % (60.0-80.0); VENOUS PARTIAL PRESSURE CO2 30.1 mmHg (38.0-50.0); VENOUS PARTIAL PRESSURE O2 74.2 mmHg (30.0-50.0); VENOUS PH 7.221 UNITS (7.330-7.430); VENOUS STANDARD HCO3 13.5 MEQ/L
[2020-12-11 04:31] LABS: CALCIUM LEVEL 8.8 MG/DL (8.5-10.1); CREATININE FOR GFR 1.55 MG/DL (0.55-1.30); PHOSPHORUS LEVEL 1.5 MG/DL (2.5-4.9)
[2020-12-11] MEDS: HEPARIN SOD (PORCINE) 5000UNITS/ML 1ML VIAL/SYRINGE SC SCH ×3 (05:27→21:55)
[2020-12-11] MEDS ORDERED: POTASSIUM PHOSPHATE INJ 15 MMOL in D5W 250 ML IV ONE (06:00)
[2020-12-11 06:32] LABS: HEMATOCRIT 34.1 % (36.0-47.0); HEMOGLOBIN 11.4 g/dl (12.0-15.5); MEAN CORPUSCULAR HEMOGLOBIN 29.2 pg (27.0-33.0); MEAN CORPUSCULAR HGB CONC 33.4 g/dl (32.0-36.5); MEAN CORPUSCULAR VOLUME 87.2 fl (80.0-96.0); PLATELET COUNT, AUTOMATED 229 10^3/uL (150-450); RED BLOOD COUNT 3.91 10^6/uL (4.00-5.40); WHITE BLOOD COUNT 7.7 10^3/uL (4.0-10.0)
[2020-12-11] MEDS: FLUTICASONE HFA 220 MCG 12 GM INHALER (FLOVENT) INH SCH ×2 (07:21→19:57)
[2020-12-11 08:15] LABS: VENOUS BASE EXCESS -13.3 (-2.0-2.0); VENOUS HCO3 13.5 MEQ/L (23.0-27.0); VENOUS O2 SATURATION 97.8 % (60.0-80.0); VENOUS PARTIAL PRESSURE CO2 34.6 mmHg (38.0-50.0); VENOUS PARTIAL PRESSURE O2 99.3 mmHg (30.0-50.0); VENOUS STANDARD HCO3 14.2 MEQ/L; VENOUS TOTAL CO2 14.6 MEQ/L (24.0-28.0)
[2020-12-11 08:44] LABS: CALCIUM LEVEL 8.8 MG/DL (8.5-10.1); CREATININE FOR GFR 1.43 MG/DL (0.55-1.30); PHOSPHORUS LEVEL 1.6 MG/DL (2.5-4.9); POTASSIUM SERUM 3.7 MEQ/L (3.5-5.1)
[2020-12-11] MEDS: K-PHOS NEUTRAL 250MG TABLET (SOD.PHOSPHATE/POT.PHOSPHATE) PO SCH ×3 (08:55→20:19)
[2020-12-11 13:13] LABS: VENOUS BASE EXCESS -11.8 (-2.0-2.0); VENOUS HCO3 14.7 MEQ/L (23.0-27.0); VENOUS O2 SATURATION 97.8 % (60.0-80.0); VENOUS PARTIAL PRESSURE CO2 35.2 mmHg (38.0-50.0); VENOUS PARTIAL PRESSURE O2 105.8 mmHg (30.0-50.0); VENOUS PH 7.238 UNITS (7.330-7.430); VENOUS STANDARD HCO3 15.2 MEQ/L; VENOUS TOTAL CO2 15.8 MEQ/L (24.0-28.0)
[2020-12-11 13:42] LABS: CALCIUM LEVEL 8.6 MG/DL (8.5-10.1); CREATININE FOR GFR 1.28 MG/DL (0.55-1.30); GLOMERULAR FILTRATION RATE 51.1 (>60); PHOSPHORUS LEVEL 2.2 MG/DL (2.5-4.9); POTASSIUM SERUM 3.4 MEQ/L (3.5-5.1)
[2020-12-11] MEDS: KCL 40MEQ IN D5/0.45NS 1000ML 1,000 ML IV SCH ×2 (14:57→20:19)
[2020-12-11 17:01] LABS: VENOUS BASE EXCESS -8.2 (-2.0-2.0); VENOUS HCO3 17.4 MEQ/L (23.0-27.0); VENOUS O2 SATURATION 99.3 % (60.0-80.0); VENOUS PARTIAL PRESSURE CO2 35.7 mmHg (38.0-50.0); VENOUS PARTIAL PRESSURE O2 188.7 mmHg (30.0-50.0); VENOUS PH 7.305 UNITS (7.330-7.430); VENOUS STANDARD HCO3 17.9 MEQ/L; VENOUS TOTAL CO2 18.5 MEQ/L (24.0-28.0)
[2020-12-11 17:37] LABS: CALCIUM LEVEL 8.6 MG/DL (8.5-10.1); CREATININE FOR GFR 1.19 MG/DL (0.55-1.30); GLOMERULAR FILTRATION RATE 55.6 (>60); PHOSPHORUS LEVEL 1.9 MG/DL (2.5-4.9); POTASSIUM SERUM 3.5 MEQ/L (3.5-5.1)
[2020-12-11] MEDS: INSULIN REGULAR IN 0.9 % NACL 100 UNIT in IV 1 EA IV SCH ×2 (18:20)
--- NOTE | 2020-12-11 20:14 | REP ---
INDICATION: UTI/sepsis COMPARISON: None TECHNIQUE: Real time vega scale ultrasound examination using curved array transducer. FINDINGS: Bilateral kidneys are normal in contour, size, echogenicity, and reniform shape without hydronephrosis, nephrolithiasis, cystic or significant renal mass lesion. Bladder is unremarkable. Right kidney measures 11.3 x 6.1 x 4.6 cm with incidental 7 mm upper pole angiomyolipoma. Left kidney measures 11.5 x 6.0 x 5.7 cm. IMPRESSION: 1. Incidental benign sub cm right angiomyolipoma. 2. Otherwise normal renal ultrasound. <Electronically signed by Sixto Trimble > 12/11/202010
--- NOTE | 2020-12-11 20:50 | IPNPDOC ---
Subjective Date Seen The patient was seen on 12/11/20. Subjective Chief Complaint/HPI Patient is a 35 year old female with DM type 1 and tracheal stenosis s/p tracheostomy here with DKA. This morning, she felt like she has an appetite, but still acidotic. Denies chest pain or dyspnea. Reports that she has been complaint with her insulin. Objective Physical Examination General Exam: Positive: Cooperative Eye Exam: Positive: EOMI; Negative: Sclera icteric ENT Exam: Positive: Atraumatic Neck Exam: Positive: Supple Chest Exam: Positive: Clear to auscultation; Negative: Wheezing Heart Exam: Positive: Tachycardic, Regular Rhythm Abdomen Exam: Positive: Normal bowel sounds, Soft; Negative: Tenderness Extremity Exam: Negative: Edema Assessment /Plan Assessment Patient is a 35 year old female with DM type 1 and tracheal stenosis s/p tracheostomy here with DKA. Unknown etiology to DKA. Reports compliance with insulin. UA demonstrates pyuria with bacteria, but no growth of clinical sig nificance on urine culture. Otherwise, continues with insulin drip. Plan/VTE VTE Prophylaxis Ordered?: Yes Plan 1. DKA in the setting of DM type 1 -Gap closed, but still acidotic -Continue with insulin drip -Anticipate being able to switch to basal and sliding scale insulin tomorrow -Otherwise suspecting UTI as cause for DKA 2. UTI -Patient had dysuria. UA demonstrated pyuria -Empirically on ceftriaxone 3. Histroy of tracheal stenosis s/p tracheostomy -At room air with trach collar 4. DVT ppx -Lovenox VS, I&O, 24H, Fishbone Vital Signs/I&O Vital Signs Date Time Temp Pulse Resp B/P (MAP) Pulse Ox O2 Delivery O2 Flow Rate FiO2 12/11/20 18:00 89 18 117/79 (92) 100 Room Air 12/11/20 15:03 97.4 I&O- Last 24 Hours up to 6 AM 12/11/20 06:00 Intake Total 2562.98 ml Output Total 300 ml Balance 2262.98 ml Laboratory Data 24H LABS Laboratory Tests 2 12/10/20 21:34: Bedside Glucose (Misc Panel) 126H 12/10/20 21:50: Blood Gas Puncture Site UNKNOWN, Blood Gas Bicarbonate Standard 12.3, Venous Blood pH 7.294L, Venous Blood Partial Pressure CO2 14.3L, Venous Blood Partial Pressure O2 213.7H, Venous Blood Total Carbon Dioxide 7.2L, Venous Blood HCO3 6.8L, Venous Blood Oxygen Saturation 99.4H, Venous Blood Base Excess -16.7L 12/10/20 23:06: Bedside Glucose (Misc Panel) 102 12/11/20 00:08: Bedside Glucose (Misc Panel) 118H 12/11/20 00:18: Blood Gas Bicarbonate Standard 11.7, Venous Blood pH 7.171L, Venous Blood Partial Pressure CO2 26.9L, Venous Blood Partial Pressure O2 98.1H, Venous Blood Total Carbon Dioxide 10.4L, Venous Blood HCO3 9.6L, Venous Blood Oxygen Saturation 97.6H, Venous Blood Base Excess -17.3L, Anion Gap 17H, Glomerular Filtration Rate 42.2L, Osmolality 311H, Calcium Level 9.4, Phosphorus Level 2.4L 12/11/20 00:48: Bedside Glucose (Misc Panel) 135H 12/11/20 01:06: Urine Random Creatinine 127.0, Urine Random Sodium 35, Urine Random Potassium 55.4, Urine Random Urea Nitrogen 622 12/11/20 02:11: Bedside Glucose (Misc Panel) 211H 12/11/20 03:02: Bedside Glucose (Misc Panel) 230H 12/11/20 03:50: Bedside Glucose (Misc Panel) 218H 12/11/20 03:55: Blood Gas Bicarbonate Standard 13.5, Venous Blood pH 7.221L, Venous Blood Partial Pressure CO2 30.1L, Venous Blood Partial Pressure O2 74.2H, Venous Blood Total Carbon Dioxide 13.0L, Venous Blood HCO3 12.1L, Venous Blood Oxygen Saturation 94.9H, Venous Blood Base Excess -14.3L, Anion Gap 16, Glomerular Filtration Rate 41.0L, Osmolality 310H, Calcium Level 8.8, Phosphorus Level 1.5#L 12/11/20 05:26: Bedside Glucose (Misc Panel) 208H 12/11/20 06:00: Nucleated Red Blood Cells % (auto) 0.0 12/11/20 06:26: Bedside Glucose (Misc Panel) 116H 12/11/20 06:29: Bedside Glucose (Misc Panel) 172H 12/11/20 07:13: Bedside Glucose (Misc Panel) 168H 12/11/20 07:56: Blood Gas Bicarbonate Standard 14.2, Venous Blood pH 7.210L, Venous Blood Partial Pressure CO2 34.6L, Venous Blood Partial Pressure O2 99.3H, Venous Blood Total Carbon Dioxide 14.6L, Venous Blood HCO3 13.5L, Venous Blood Oxygen Saturation 97.8H, Venous Blood Base Excess -13.3L 12/11/20 07:57: Anion Gap 12, Glomerular Filtration Rate 45.0L, Calcium Level 8.8, Phosphorus Level 1.6L 12/11/20 08:13: Bedside Glucose (Misc Panel) 168H 12/11/20 09:01: Bedside Glucose (Misc Panel) 189H 12/11/20 10:19: Bedside Glucose (Misc Panel) 159H 12/11/20 11:07: Bedside Glucose (Misc Panel) 146H 12/11/20 12:13: Bedside Glucose (Misc Panel) 162H 12/11/20 13:05: Blood Gas Bicarbonate Standard 15.2, Venous Blood pH 7.238L, Venous Blood Partial Pressure CO2 35.2L, Venous Blood Partial Pressure O2 105.8H, Venous Blood Total Carbon Dioxide 15.8L, Venous Blood HCO3 14.7L, Venous Blood Oxygen Saturation 97.8H, Venous Blood Base Excess -11.8L, Anion Gap 11, Glomerular Filtration Rate 51.1L, Osmolality 306H, Calcium Level 8.6, Phosphorus Level 2.2#L 12/11/20 13:15: Bedside Glucose (Misc Panel) 157H 12/11/20 14:11: Bedside Glucose (Misc Panel) 148H 12/11/20 15:04: Bedside Glucose (Misc Panel) 194H 12/11/20 16:01: Bedside Glucose (Misc Panel) 160H 12/11/20 16:56: Blood Gas Bicarbonate Standard 17.9, Venous Blood pH 7.305L, Venous Blood Partial Pressure CO2 35.7L, Venous Blood Partial Pressure O2 188.7H, Venous Blood Total Carbon Dioxide 18.5L, Venous Blood HCO3 17.4L, Venous Blood Oxygen Saturation 99.3H, Venous Blood Base Excess -8.2L, Anion Gap 11, Glomerular Filtration Rate 55.6L, Calcium Level 8.6, Phosphorus Level 1.9L 12/11/20 16:58: Bedside Glucose (Misc Panel) 146H 12/11/20 18:13: Bedside Glucose (Misc Panel) 187H 12/11/20 19:18: Bedside Glucose (Misc Panel) 160H 12/11/20 20:05: 12/11/20 20:14: Bedside Glucose (Misc Panel) 163H CBC/BMP Laboratory Tests 12/11/20 00:18 12/11/20 03:55 12/11/20 06:00 12/11/20 07:57 12/11/20 13:05 12/11/20 16:56 Microbiology Microbiology 12/10/20 Blood Culture, Received Pending 12/10/20 Blood Culture - Preliminary, Resulted No growth after 24 hours . All specim... 12/10/20 Urine Culture - Final, Complete FREDY PEDERSEN DO Dec 11, 2020 20:50
[2020-12-11 21:02] LABS: CALCIUM LEVEL 8.7 MG/DL (8.5-10.1); CREATININE FOR GFR 1.21 MG/DL (0.55-1.30); GLOMERULAR FILTRATION RATE 54.6 (>60); MAGNESIUM LEVEL 1.6 MG/DL (1.8-2.4); PHOSPHORUS LEVEL 1.8 MG/DL (2.5-4.9); POTASSIUM SERUM 3.6 MEQ/L (3.5-5.1)
[2020-12-11] MEDS: MAG SULF 1GM/100ML (MAG RUN) 1 GM in IV 1 EA IV SCH ×2 (22:18→23:19)
[2020-12-12] VITALS (7 sets, daily range): BP systolic 101–140; BP diastolic 62–87
[2020-12-12] MEDS: MAG SULF 1GM/100ML (MAG RUN) 1 GM in IV 1 EA IV SCH (00:26)
[2020-12-12 01:00] LABS: BLOOD UREA NITROGEN 12 MG/DL (7-18); CALCIUM LEVEL 8.5 MG/DL (8.5-10.1); CARBON DIOXIDE LEVEL 19 MEQ/L (21-32); CHLORIDE LEVEL 113 MEQ/L (98-107); CREATININE FOR GFR 1.02 MG/DL (0.55-1.30); GLOMERULAR FILTRATION RATE > 60.0 (>60); GLUCOSE, FASTING 146 MG/DL (70-100); MAGNESIUM LEVEL 2.9 MG/DL (1.8-2.4); PHOSPHORUS LEVEL 2.3 MG/DL (2.5-4.9); POTASSIUM SERUM 3.4 MEQ/L (3.5-5.1); SODIUM LEVEL 141 MEQ/L (136-145)
[2020-12-12] MEDS: INSULIN IV RATE CHANGE DOCUMENTATION ML/HR XX SCH ×6 (01:29→06:28)
[2020-12-12] MEDS: KCL 40MEQ IN D5/0.45NS 1000ML 1,000 ML IV SCH ×2 (04:37→09:48)
[2020-12-12 04:42] LABS: HEMATOCRIT 29.9 % (36.0-47.0); HEMOGLOBIN 9.9 g/dl (12.0-15.5); MEAN CORPUSCULAR HEMOGLOBIN 28.8 pg (27.0-33.0); MEAN CORPUSCULAR HGB CONC 33.1 g/dl (32.0-36.5); MEAN CORPUSCULAR VOLUME 86.9 fl (80.0-96.0); PLATELET COUNT, AUTOMATED 171 10^3/uL (150-450); RED BLOOD COUNT 3.44 10^6/uL (4.00-5.40); WHITE BLOOD COUNT 4.7 10^3/uL (4.0-10.0)
[2020-12-12 05:11] LABS: CALCIUM LEVEL 8.3 MG/DL (8.5-10.1); CREATININE FOR GFR 1.15 MG/DL (0.55-1.30); GLOMERULAR FILTRATION RATE 57.9 (>60); MAGNESIUM LEVEL 2.6 MG/DL (1.8-2.4); PHOSPHORUS LEVEL 1.5 MG/DL (2.5-4.9); POTASSIUM SERUM 3.5 MEQ/L (3.5-5.1)
[2020-12-12] MEDS: HEPARIN SOD (PORCINE) 5000UNITS/ML 1ML VIAL/SYRINGE SC SCH ×3 (06:27→21:57)
[2020-12-12] MEDS: FLUTICASONE HFA 220 MCG 12 GM INHALER (FLOVENT) INH SCH ×2 (07:24→19:51)
[2020-12-12] MEDS ORDERED: GLUCAGON INJ 1MG VIAL SC PRN (07:30)
[2020-12-12] MEDS ORDERED: DEXTROSE 50% 50 ML SYRINGE IV PRN (07:30)
[2020-12-12] MEDS ORDERED: GLUCOSE 4GM CHEW TABLET PO PRN (07:30)
[2020-12-12] MEDS: LEVEMIR (INSULIN DETEMIR) 1 UNITS/0.01ML SC SCH (08:39)
[2020-12-12] MEDS: HumaLOG INSULIN (NovoLOG) PER UNIT SC SCH ×4 (08:40→21:00)
[2020-12-12] MEDS: K-PHOS NEUTRAL 250MG TABLET (SOD.PHOSPHATE/POT.PHOSPHATE) PO SCH (08:40)
--- NOTE | 2020-12-12 12:04 | IPNPDOC ---
Subjective Date Seen The patient was seen on 12/12/20. Subjective Chief Complaint/HPI Patient is a 35 year old female with DM type 1 and tracheal stenosis s/p tracheostomy here with DKA. This morning, her gap was closed and acidosis nearly resolved. Switched her to basal-bolus insulin and she has tolerated a diet. This morning, she still has a good appetite. Denies chest pain, dyspnea, or abdominal pain. If does well with basal-bolus insulin and meals, may be discharged tomorrow. Objective Physical Examination General Exam: Positive: Cooperative Eye Exam: Positive: EOMI; Negative: Sclera icteric ENT Exam: Positive: Atraumatic Neck Exam: Positive: Supple Chest Exam: Positive: Clear to auscultation; Negative: Wheezing Heart Exam: Positive: Tachycardic, Regular Rhythm Abdomen Exam: Positive: Normal bowel sounds, Soft; Negative: Tenderness Extremity Exam: Negative: Edema Assessment /Plan Assessment Patient is a 35 year old female with DM type 1 and tracheal stenosis s/p tracheostomy here with DKA. Unknown etiology to DKA. Reports compliance with insulin. UA demonstrates pyuria with bacteria, but no growth of clinical significance on urine culture. Will treat emetically. Otherwise today, she feels better. Started a diet today. If she does well, possible discharge tomorrow Plan/VTE VTE Prophylaxis Ordered?: Yes Plan 1. DKA in the setting of DM type 1 -Gap closed, acidosis resolving -Switched to basal-bolus and carbohydrate consistent diet -Otherwise suspecting UTI as cause for DKA 2. UTI -Patient had dysuria. UA demonstrated pyuria -Empirically on ceftriaxone 3. Histroy of tracheal stenosis s/p tracheostomy -At room air with trach collar 4. DVT ppx -Lovenox Disposition: if does well with diet, possible discharge home tomorrow VS, I&O, 24H, Fishbone Vital Signs/I&O Vital Signs Date Time Temp Pulse Resp B/P (MAP) Pulse Ox O2 Delivery O2 Flow Rate FiO2 12/12/20 04:00 97.4 86 18 112/75 (87) 100 Room Air I&O- Last 24 Hours up to 6 AM 12/12/20 06:00 Intake Total 3996 ml Output Total 1400 ml Balance 2596 ml Laboratory Data 24H LABS Laboratory Tests 2 12/11/20 12:13: Bedside Glucose (Misc Panel) 162H 12/11/20 13:05: Blood Gas Bicarbonate Standard 15.2, Venous Blood pH 7.238L, Venous Blood Partial Pressure CO2 35.2L, Venous Blood Partial Pressure O2 105.8H, Venous Blood Total Carbon Dioxide 15.8L, Venous Blood HCO3 14.7L, Venous Blood Oxygen Saturation 97.8H, Venous Blood Base Excess -11.8L, Anion Gap 11, Glomerular Fi ltration Rate 51.1L, Osmolality 306H, Calcium Level 8.6, Phosphorus Level 2.2#L 12/11/20 13:15: Bedside Glucose (Misc Panel) 157H 12/11/20 14:11: Bedside Glucose (Misc Panel) 148H 12/11/20 15:04: Bedside Glucose (Misc Panel) 194H 12/11/20 16:01: Bedside Glucose (Misc Panel) 160H 12/11/20 16:56: Blood Gas Bicarbonate Standard 17.9, Venous Blood pH 7.305L, Venous Blood Partial Pressure CO2 35.7L, Venous Blood Partial Pressure O2 188.7H, Venous Blood Total Carbon Dioxide 18.5L, Venous Blood HCO3 17.4L, Venous Blood Oxygen Saturation 99.3H, Venous Blood Base Excess -8.2L, Anion Gap 11, Glomerular Filtration Rate 55.6L, Calcium Level 8.6, Phosphorus Level 1.9L 12/11/20 16:58: Bedside Glucose (Misc Panel) 146H 12/11/20 18:13: Bedside Glucose (Misc Panel) 187H 12/11/20 19:18: Bedside Glucose (Misc Panel) 160H 12/11/20 20:05: Anion Gap 9, Glomerular Filtration Rate 54.6L, Calcium Level 8.7, Phosphorus Level 1.8L, Magnesium Level 1.6L 12/11/20 20:14: Bedside Glucose (Misc Panel) 163H 12/11/20 21:17: Bedside Glucose (Misc Panel) 146H 12/11/20 22:21: Bedside Glucose (Misc Panel) 135H 12/11/20 23:18: Bedside Glucose (Misc Panel) 142H 12/12/20 00:15: Anion Gap 9, Glomerular Filtration Rate > 60.0, Calcium Level 8.5, Phosphorus Level 2.3#L, Magnesium Level 2.9H 12/12/20 00:21: Bedside Glucose (Misc Panel) 130H 12/12/20 01:26: Bedside Glucose (Misc Panel) 115H 12/12/20 02:13: Bedside Glucose (Misc Panel) 140H 12/12/20 03:01: Bedside Glucose (Misc Panel) 153H 12/12/20 04:24: Bedside Glucose (Misc Panel) 133H 12/12/20 04:32: Nucleated Red Blood Cells % (auto) 0.0, Anion Gap 9, Glomerular Filtration Rate 57.9L, Calcium Level 8.3L, Phosphorus Level 1.5#L, Magnesium Level 2.6H 12/12/20 05:08: Bedside Glucose (Misc Panel) 114H 12/12/20 06:26: Bedside Glucose (Misc Panel) 170H 12/12/20 08:03: Bedside Glucose (Misc Panel) 156H CBC/BMP Laboratory Tests 12/11/20 13:05 12/11/20 16:56 12/11/20 20:05 12/12/20 00:15 12/12/20 04:32 Microbiology Microbiology 12/10/20 Blood Culture - Preliminary, Resulted No growth after 24 hours . All specim... 12/10/20 Blood Culture - Preliminary, Resulted No growth after 24 hours . All specim... 12/10/20 Urine Culture - Final, Complete SLAVAFREDY Maximus MONTAGUE Dec 12, 2020 12:04
[2020-12-12] MEDS ORDERED: LEVEMIR (INSULIN DETEMIR) 1 UNITS/0.01ML SC SCH (21:00)
[2020-12-12] MEDS: cefTRIAXone SOD 1 GM in D5W MINI-BAG PLUS 50 ML IV SCH (21:56)
[2020-12-12] MEDS: ATORVASTATIN 20 MG TAB PO SCH (21:57)
[2020-12-13 06:00] VITALS: BP 140/78
[2020-12-13] MEDS: HEPARIN SOD (PORCINE) 5000UNITS/ML 1ML VIAL/SYRINGE SC SCH (06:15)
[2020-12-13] MEDS: FLUTICASONE HFA 220 MCG 12 GM INHALER (FLOVENT) INH SCH (07:30)
[2020-12-13] MEDS: LEVEMIR (INSULIN DETEMIR) 1 UNITS/0.01ML SC SCH (08:39)
[2020-12-13] MEDS: HumaLOG INSULIN (NovoLOG) PER UNIT SC SCH (08:39)
[2020-12-13] MEDS ORDERED: TRES1INJ2 SC (09:11)
[2020-12-13 09:43] LABS: HEMATOCRIT 35.7 % (36.0-47.0); HEMOGLOBIN 11.8 g/dl (12.0-15.5); MEAN CORPUSCULAR HEMOGLOBIN 29.2 pg (27.0-33.0); MEAN CORPUSCULAR HGB CONC 33.1 g/dl (32.0-36.5); MEAN CORPUSCULAR VOLUME 88.4 fl (80.0-96.0); PLATELET COUNT, AUTOMATED 162 10^3/uL (150-450); RED BLOOD COUNT 4.04 10^6/uL (4.00-5.40); WHITE BLOOD COUNT 3.4 10^3/uL (4.0-10.0)
[2020-12-13 10:05] LABS: CALCIUM LEVEL 9.4 MG/DL (8.5-10.1); CREATININE FOR GFR 1.13 MG/DL (0.55-1.30)
--- NOTE | 2020-12-13 23:42 | DS.PDOC ---
Discharge Summary General Date of Admission Dec 10, 2020 at 19:22 Date of Discharge Dec 13, 2020 Attending Physician: FREDY PEDERSEN DO Discharge Summary PROCEDURES PERFORMED DURING STAY: Right IJ central line ADMITTING DIAGNOSES: 1. DKA in the setting of Type 1 Diabetes Mellitus 2. UTI 3. History of tracheal stenosis s/p trach collar DISCHARGE DIAGNOSES: 1. DKA in the setting of Type 1 Diabetes Mellitus 2. UTI 3. History of tracheal stenosis s/p trach collar COMPLICATIONS/CHIEF COMPLAINT: Dka, Headache. HISTORY OF PRESENT ILLNESS: Patient is a 35 year old female with DM type 1 and tracheal stenosis s/p tracheostomy here with nausea, vomiting, and headache that started the morning of admission. A few days prior, she had dysuria and she believed she many have had a UTI. She was not given any antibiotics as she was told she did not have a UTI. A few days later she presented to the ED with above symptoms. She was found to be in DKA with a pH 7.117, bicarb 10, and beta-h ydroxybutyrate of >46. A right IJ central line was placed to give fluid quickly. She was admitted for DKA and UTI HOSPITAL COURSE: Patient's UA demonstrated pyuria. Urine culture reported no growth of clinical significance 2 or more organisms. She was empirically treated with 3 day of ceftriaxone. She was put on an insulin drip. About 2 days after her admission, her acidosis resolved and gap closed. She was transitioned to her home insulin regimen. She did well and tolerated a diet well. This morning, she was feeling better. No nausea or abdominal pain. She tolerated the dinner the night before and breakfast well. She felt ready for home and was subsequently discharged home. Her blood glucose was slightly elevated and her morning basal insulin was increased from 17units to 20units to match her evening basal glucose. DISCHARGE MEDICATIONS: Please see below. ALLERGIES: Please see below. PHYSICAL EXAMINATION ON DISCHARGE: VITAL SIGNS: Please see below. GENERAL: Comfortable, in no apparent distress HEENT: Head normocephalic, atraumatic NECK: Trach collar present CARDIOVASCULAR EXAMINATION: Regular rate and rhythm RESPIRATORY EXAMINATION: Lungs clear to auscultation bilaterally ABDOMINAL EXAMINATION: Soft, non-tender, normal bowel sounds EXTREMITIES: No pitting edema bilaterally SKIN: Warm and dry NEUROLOGICAL EXAMINATION: CN 3-12 grossly intact PSYCHIATRIC EXAMINATION: Normal mood and affect LABORATORY DATA: Please see below. IMAGING: CT head No CT evidence of acute intracranial pathology. US kidney 1. Incidental benign sub cm right angiomyolipoma. 2. Otherwise normal renal ultrasound. CXR No active disease. Tracheostomy tube in place. No infiltrates seen.. PROGNOSIS: Good ACTIVITY: As tolerated. DIET: Carbohydrate consistent DISCHARGE PLAN: Home DISPOSITION: 01 Home, Self-Care. DISCHARGE INSTRUCTIONS: 1. Follow up with PCP within 1 week DISCHARGE CONDITION: Stable. Total time spent on discharge planning, discharge summary, and medication reconciliation: 40 minutes Vital Signs/I&Os Vital Signs Date Time Temp Pulse Resp B/P (MAP) Pulse Ox O2 Delivery O2 Flow Rate FiO2 12/13/20 06:00 97.4 87 19 140/78 (98) 98 Room Air I&O- Last 24 Hours up to 6 AM 12/13/20 06:00 Intake Total 2482 ml Output Total 800 ml Balance 1682 ml Laboratory Data Labs 24H Laboratory Tests 2 12/13/20 07:31: Bedside Glucose (Misc Panel) 300H 12/13/20 09:35: Nucleated Red Blood Cells % (auto) 0.0, Anion Gap 10, Glomerular Filtration Rate 59.0L, Calcium Level 9.4 CBC/BMP Laboratory Tests 12/13/20 09:35 FSBS Laboratory Tests Test 12/13/20 07:31 Range/Units Bedside Glucose (Misc Panel) 300 70-105 MG/DL Microbiology Microbiology 12/10/20 Blood Culture - Preliminary, Resulted No Growth after 72 hours. All specime... 12/10/20 Blood Culture - Preliminary, Resulted No Growth after 72 hours. All specime... 12/10/20 Urine Culture - Final, Complete Discharge Medications Scheduled Atorvastatin Calcium (Atorvastatin Calcium) 40 Mg Tablet, 40 MG PO QHS, (Reported) Beclomethasone Dipropionate (Qvar Redihaler) 80 Mcg/Act Hfa.aeroba, 1 PUFF INH DAILY, (Reported) Insulin Degludec (Tresiba Flextouch U-100) 100 Unit/1 Ml Insuln.pen, 20 UNIT SC QHS, (Reported) Insulin Degludec (Tresiba Flextouch U-100) 100 Unit/1 Ml Insuln.pen, 20 UNITS SC QAM Insulin Human Lispro (Novolog) 100 U/Ml Inj, 1 DOSE SC ACHS, (Reported) PER SLIDING SCALE Lisinopril (Lisinopril) 10 Mg Tablet, 10 MG PO DAILY, (Reported) Multivitamins (Thera M Plus Tablet) 1 Each Tablet, 1 TAB PO DAILY, (Reported) Scheduled PRN Acetaminophen (Acetaminophen) 500 Mg Tablet, 500 MG PO Q4H PRN for PAIN, (Reported) Ondansetron HCl (Ondansetron HCl) 4 Mg Tablet, 4 MG PO Q6H PRN for NAUSEA OR VOMITING, (Reported) Allergies Coded Allergies: TREES (Verified Allergy, Unknown, 12/10/20) mold (Verified Allergy, Unknown, 12/10/20) FREDY PEDERSEN DO Dec 13, 2020 23:42
== END 2020-12-13 11:58 | disposition home or self-care (01) | DRG 420 ==
LOC: M ED 12:00 → M ED INP 19:22 → M PCU 12-11 00:45 → M MSPAV 12-12 14:33
PROVIDERS: ADMIT Internal Medicine; ATTEND Internal Medicine
DX: E10.10 Type 1 diabetes mellitus with ketoacidosis without coma (principal); Z93.0 Tracheostomy status; N39.0 Urinary tract infection, site not specified; Z79.899 Other long term (current) drug therapy; Z79.4 Long term (current) use of insulin

== ENCOUNTER 2021-03-01 21:03 | Emergency (ER) | payer OTHER ==
[~2021-03-01] VITALS: Ht 162.6 cm; Wt 69.5 kg
[~2021-03-01 21:03] MED LIST changes: -LISI-542 PO; +LISI-898 PO; +LISI10TA22 PO; -LISI10TA4 PO; +MAPA500C PO; +METH-1164 PO; -METH1TAB40 PO; +QVAR80AE8 INH
[2021-03-01 21:48] LABS: BASO % 0.8 % (0.0-1.0); EOS # 0.1 10^3/uL (0.0-0.5); EOS % 2.2 % (0.0-3.0); HEMATOCRIT 38.4 % (36.0-47.0); HEMOGLOBIN 12.6 g/dl (12.0-15.5); LYMPH # 1.5 10^3/uL (1.5-5.0); LYMPH % 40.1 % (24.0-44.0); MEAN CORPUSCULAR HEMOGLOBIN 29.5 pg (27.0-33.0); MEAN CORPUSCULAR HGB CONC 32.8 g/dl (32.0-36.5); MEAN CORPUSCULAR VOLUME 89.9 fl (80.0-96.0); MONO # 0.3 10^3/uL (0.0-0.8); NEUTROPHILS # 1.8 10^3/uL (1.5-8.5); NEUTROPHILS % 49.6 % (36.0-66.0); PLATELET COUNT, AUTOMATED 202 10^3/uL (150-450); RED BLOOD COUNT 4.27 10^6/uL (4.00-5.40); VENOUS BASE EXCESS -2.3 (-2.0-2.0); VENOUS HCO3 23.6 MEQ/L (23.0-27.0); VENOUS O2 SATURATION 99.5 % (60.0-80.0); VENOUS PARTIAL PRESSURE CO2 44.8 mmHg (38.0-50.0); VENOUS PARTIAL PRESSURE O2 227.5 mmHg (30.0-50.0); VENOUS PH 7.339 UNITS (7.330-7.430); VENOUS STANDARD HCO3 22.6 MEQ/L; VENOUS TOTAL CO2 24.9 MEQ/L (24.0-28.0); WHITE BLOOD COUNT 3.7 10^3/uL (4.0-10.0)
[2021-03-01 23:13] LABS: HEMOGLOBIN A1c 11.7 %
[2021-03-01 23:17] LABS: ACETONE/KETONE 2.01 MG/DL (<2.81); ALT/SGPT 23 U/L (12-78); BILIRUBIN,DIRECT < 0.1 MG/DL (0.0-0.2); BILIRUBIN,TOTAL 0.4 MG/DL (0.2-1.0); BLOOD UREA NITROGEN 20 MG/DL (7-18); CALCIUM LEVEL 9.1 MG/DL (8.5-10.1); CARBON DIOXIDE LEVEL 25 MEQ/L (21-32); CHLORIDE LEVEL 108 MEQ/L (98-107); CREATININE FOR GFR 0.72 MG/DL (0.55-1.30); GLOMERULAR FILTRATION RATE > 60.0 (>60); GLUCOSE, FASTING 191 MG/DL (70-100); LIPASE 91 U/L (73-393); POTASSIUM SERUM 3.6 MEQ/L (3.5-5.1); SODIUM LEVEL 140 MEQ/L (136-145); TOTAL PROTEIN 7.4 GM/DL (6.4-8.2)
[2021-03-01 23:26] LABS: OSMOLALITY SERUM 294 MOSM/KG (275-295)
[2021-03-02 00:42] VITALS: BP 145/88
--- NOTE | 2021-03-02 09:31 | ECGEPIP ---
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
== END 2021-03-02 00:43 | disposition home or self-care (01) ==
LOC: M ED 21:03
DX: E10.649 Type 1 diabetes mellitus with hypoglycemia without coma (principal); I10 Essential (primary) hypertension; Z79.4 Long term (current) use of insulin; Z79.899 Other long term (current) drug therapy

== ENCOUNTER 2021-03-29 21:05 | Inpatient (IN) | payer OTHER ==
[~2021-03-29] VITALS: Ht 162.6 cm; Wt 71.2 kg
[2021-03-29] MEDS ORDERED: NS 1,000 ML IV ONE (23:45)
[2021-03-29] MEDS ORDERED: ONDANSETRON 4MG/2ML VIAL IV ONE (23:45)
[2021-03-30] VITALS (9 sets, daily range): BP systolic 120–165; BP diastolic 66–95
[2021-03-30 00:10] LABS: VENOUS BASE EXCESS -18.4 (-2.0-2.0); VENOUS HCO3 8.9 MEQ/L (23.0-27.0); VENOUS O2 SATURATION 77.5 % (60.0-80.0); VENOUS PARTIAL PRESSURE CO2 26.3 mmHg (38.0-50.0); VENOUS PARTIAL PRESSURE O2 43.7 mmHg (30.0-50.0); VENOUS PH 7.148 UNITS (7.330-7.430); VENOUS STANDARD HCO3 10.8 MEQ/L; VENOUS TOTAL CO2 9.7 MEQ/L (24.0-28.0)
[2021-03-30 00:22] LABS: BASO % 0.3 % (0.0-1.0); HEMATOCRIT 42.5 % (36.0-47.0); HEMOGLOBIN 13.8 g/dl (12.0-15.5); LYMPH # 0.8 10^3/uL (1.5-5.0); MEAN CORPUSCULAR HEMOGLOBIN 29.4 pg (27.0-33.0); MEAN CORPUSCULAR HGB CONC 32.5 g/dl (32.0-36.5); MEAN CORPUSCULAR VOLUME 90.4 fl (80.0-96.0); MONO # 0.3 10^3/uL (0.0-0.8); MONO % 4.3 % (2.0-8.0); NEUTROPHILS # 4.7 10^3/uL (1.5-8.5); NEUTROPHILS % 80.7 % (36.0-66.0); PLATELET COUNT, AUTOMATED 295 10^3/uL (150-450); WHITE BLOOD COUNT 5.8 10^3/uL (4.0-10.0)
[2021-03-30] MEDS ORDERED: HumuLIN R (REGULAR) INSULIN (NovoLIN R) **100U/ML** PER UNIT IV ONE (01:05)
[2021-03-30] MEDS ORDERED: MOM 30ML SUSPENSION UDC PO PRN (01:15)
[2021-03-30] MEDS ORDERED: MAALOX 30 ML SUSP *UDC PO PRN (01:15)
--- NOTE | 2021-03-30 01:23 | HPEPDOC ---
[facility] Medical History & Physical Date of Admission March 30, 2021 Date of Service: March 30, 2021 Other Provider Nikki Mckenzie [employer]ER Attending Physician: AGNES SCOTT MD History and Physical TIME OF SERVICE: 105am CHIEF COMPLAINT: n/v HISTORY OF PRESENT ILLNESS: This 35 yr old F begun her period on March 28 and developed n/v which she is not atypical for her, but yesterday she couldnt keep food down, checked her sugar and noted that it was elevated so she came to the ER. 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 HOME MEDICATIONS: Please see below. PHYSICAL EXAMINATION: Vital Signs Date Time Temp Pulse Resp B/P (MAP) Pulse Ox O2 Delivery O2 Flow Rate FiO2 03/29/21 21:07 98.7 105 18 138/78 (98) 100 Room Air GENERAL APPEARANCE: well nourished and developed /NAD HEENT: EOMI / mask covering lower face and anterior part of trach CARDIOVASCULAR: RRR/NMRG LUNGS: CTAB on RA ABDOMEN: soft & NT MUSCULOSKELETAL: ROMIx 4 INTEGUMENT: not flushed or pale NEUROLOGICAL: speech not dysarthric PSYCHIATRIC: A&O x 3 /able to understand and follow all comands LABORATORY DATA: Immature Granulocyte % (Auto) 0.7, Neutrophils (%) (Auto) 80.7H, Lymphocytes (%) (Auto) 14.0L, Monocytes (%) (Auto) 4.3, Eosinophils (%) (Auto) 0.0, Basophils (%) (Auto) 0.3, Neutrophils # (Auto) 4.7, Lymphocytes # (Auto) 0.8L, Monocytes # (Auto) 0.3, Eosinophils # (Auto) 0.0, Basophils # (Auto) 0.0, Nucleated Red Blood Cells % (auto) 0.0, Blood Gas Bicarbonate Standard 10.8, Venous Blood pH 7.148L, Venous Blood Partial Pressure CO2 26.3L, Venous Blood Partial Pressure O2 43.7, Venous Blood Total Carbon Dioxide 9.7L, Venous Blood HCO3 8.9L, Venous Blood Oxygen Saturation 77.5, Venous Blood Base Excess -18.4L, B-Hydroxybutyrate > 46.00H 03/30/21 00:15: POC Glucose (Misc Panel) 317H, POC Sodium (Misc Panel) 137, POC Potassium (Misc Panel) 5.1, POC Chloride (Misc Panel) 112H, POC Total CO2 (Misc Panel) 12.0L, POC Blood Urea Nitrogen (Misc Panel 27H, POC Ionized Calcium (Misc Panel) 5.3, POC Creatinine (Misc Panel) 1.0, POC Hematocrit (Misc Panel) 41.0 03/30/21 00:18: POC Beta HCG, Quantitative < 5.0 IMAGING: Chest xray IMPRESSION: No radiographic evidence for acute disease in the chest. Other findings discussed above. MICROBIOLOGY: respiratory panel neg ASSESSMENT: is a 35 yr old w DM1 complicated by DKA , Tracheal stenosis s/p tracheostomy tube placement & History of non-compliance who is admitted for DKA. PLAN: 1 DKA Possibly triggered by gastroenteritis vs non-compliance vs other cause TBD She meets the following diagnostic criteria for DKA: glucose >250 + pH <7.30 + bicarbonate <18 + BHB Plan: admit to ICU /NPO / Insulin drip per protocol/ IVF w KCl / f/u blood cx, lipase, A1C / f/u accuchecks Q1H, BMP Q4H, venous PH Q4H, osmol Q4H, Mag Q4H, phosphorus Q4H/ She can f/u w her [facility] at the [facility] in [facility] DVT px w lovenox Dispo: home after less than 2 midnights stay LATE ENTRY #Dehydration RNs are not able to get IV access Plan: will call to place a line Home Medications Scheduled Beclomethasone Dipropionate (Qvar Redihaler) 80 Mcg/Act Hfa.aeroba, 2 PUFFS INH DAILY Insulin Degludec (Tresiba Flextouch U-100) 100 Unit/1 Ml Insuln.pen, 25 UNIT SC BID Insulin Human Lispro (Novolog) 100 U/Ml Inj, 1 DOSE SC ACHS PER SLIDING SCALE Scheduled PRN Acetaminophen (Acetaminophen) 500 Mg Tablet, 500 MG PO Q4H PRN for PAIN Allergies Coded Allergies: TREES (Verified Allergy, Unknown, 12/10/20) mold (Verified Allergy, Unknown, 12/10/20) A-FIB/CHADSVASC A-FIB History Current/History of A-Fib/PAF?: No Current PO Anticoag Therapy: No AGNES SCOTT MD March 30, 2021 01:23
--- NOTE | 2021-03-30 01:40 | REPVR ---
PROCEDURE INFORMATION: Exam: XR Chest Exam date and time: 03/29/2021 12:37 AM Age: 35 years old Clinical indication: Cough TECHNIQUE: Imaging protocol: XR of the chest. Views: 2 views. COMPARISON: MI Chest, 1 view 12/11/2020 12:03 AM FINDINGS: LUNGS and PLEURAL SPACE: The lungs are symmetrically expanded. Lung volumes are within normal limits. No evidence of peribronchial thickening. There is no consolidation, pneumothorax, or pleural effusion. No evidence of pulmonary vascular redistribution or overt edema. MEDIASTINUM: There is no mediastinal shift or widening. CARDIAC SILHOUETTE: Cardiothoracic ratio is within normal limits. BONY THORAX: No acute findings are seen. OTHER: A tracheostomy tube is again noted, appearing to be unchanged in position, the tip approximately 3.7 cm above the level of the dandy. Previously seen right-sided central catheter is no longer present. IMPRESSION: No radiographic evidence for acute disease in the chest. Other findings discussed above. Electronically signed by: Leon Levine On 03/30/2021 01:40:38 AM
[2021-03-30] MEDS: KCL 20MEQ IN 0.45NS 1000ML 1,000 ML IV SCH ×4 (03:14→12:33)
[2021-03-30 04:02] LABS: VENOUS BASE EXCESS -19.3 (-2.0-2.0); VENOUS HCO3 7.1 MEQ/L (23.0-27.0); VENOUS O2 SATURATION 98.8 % (60.0-80.0); VENOUS PARTIAL PRESSURE CO2 19.8 mmHg (38.0-50.0); VENOUS PARTIAL PRESSURE O2 139.4 mmHg (30.0-50.0); VENOUS PH 7.174 UNITS (7.330-7.430); VENOUS STANDARD HCO3 10.4 MEQ/L; VENOUS TOTAL CO2 7.7 MEQ/L (24.0-28.0)
[2021-03-30 04:19] LABS: HEMOGLOBIN A1c 11.3 %
[2021-03-30 04:26] LABS: CALCIUM LEVEL 8.3 MG/DL (8.5-10.1); CREATININE FOR GFR 1.19 MG/DL (0.55-1.30); GLOMERULAR FILTRATION RATE 55.6 (>60); PHOSPHORUS LEVEL 2.9 MG/DL (2.5-4.9); POTASSIUM SERUM 4.5 MEQ/L (3.5-5.1)
[2021-03-30] MEDS: ACETAMINOPHEN TAB 650MG DOSE (2X325MG) PO PRN ×3 (04:46→20:10)
[2021-03-30] MEDS: INSULIN REGULAR IN 0.9 % NACL 100 UNIT in IV 1 EA IV SCH ×2 (06:44)
[2021-03-30] MEDS ORDERED: LIDOCAINE 1% MDV 20ML VIAL As Ordered ONE (07:42)
[2021-03-30] MEDS: ENOXAPARIN 40MG/0.4ML SYRINGE (J1650 PER 10MG) SC SCH (08:42)
[2021-03-30] MEDS: ONDANSETRON 4MG/2ML VIAL IV PRN ×3 (08:53→20:09)
[2021-03-30] MEDS: INSULIN IV RATE CHANGE DOCUMENTATION ML/HR XX SCH ×9 (09:00→22:00)
[2021-03-30 09:35] LABS: CALCIUM LEVEL 9.2 MG/DL (8.5-10.1); CREATININE FOR GFR 1.43 MG/DL (0.55-1.30); PHOSPHORUS LEVEL 1.4 MG/DL (2.5-4.9)
[2021-03-30] MEDS ORDERED: ALBUTEROL SULFATE 2.5 MG/0.5 ML INH NEB SOLN INH PRN (09:35)
--- NOTE | 2021-03-30 10:01 | IPN ---
PROGRESS NOTE DATE: 03/30/2021 SUBJECTIVE: Carolina is seen in the ICU, admitted with DKA, she has had several admissions in the last year for diabetic ketoacidosis secondary to noncompliance. Her diabetes is under terrible control. Hemoglobin A1c is 11%. She unfortunately had poor IV access and I guess the decision was made to give her intravenous insulin by her sole IV rather than IV fluids so at this time she has not been hydrated at all and received no IV fluids since admission. She has nausea and is dehydrated. OBJECTIVE: VITAL SIGNS: Blood pressure 132/77, pulse 109, respiratory rate 26, 100% O2 saturation. GENERAL APPEARANCE: She is lying in bed resting comfortably. She has a tracheostomy and answers questions appropriately. She looks drowsy. HEENT: Dry mucous membranes. LUNGS: Clear. HEART: Regular rate and rhythm. ABDOMEN: Soft, nontender. No peripheral edema. LABORATORY DATA: 8 a.m. labs are all pending. IMPRESSION: 1. Diabetic ketoacidosis, unfortunately no IV fluids given since admission. It would have been preferable to give her IV fluids first and give the insulin via subcutaneous route. She is still quite dehydrated, essentially we are starting from scratch at this point. I have ordered q. 4 hours BMPs, communicated with the nurse about the importance of getting her IV fluids going, titrate insulin drip based upon protocol. Zofran given for nausea. Follow anion gap. Change to dextrose containing IV fluids once glucose around 200-250. 2. History of asthma. She has the Budesonide inhaler. I do not see where she has any Albuterol ordered so will put in an order for that in case she develops some bronchospasm. 3. Noncompliance. She follows with [facility] for her Type 1 diabetes. Her control is poor. 4. Tracheostomy status, increases risk of pulmonary infections. She had an AP chest x-ray on admission that was clear.
[2021-03-30] MEDS ORDERED: SODIUM CHLORIDE 0.9% INJ 10 ML SYR IV PRN (10:05)
[2021-03-30 12:20] LABS: VENOUS BASE EXCESS -17.6 (-2.0-2.0); VENOUS HCO3 9.3 MEQ/L (23.0-27.0); VENOUS O2 SATURATION 90.9 % (60.0-80.0); VENOUS PARTIAL PRESSURE CO2 26.1 mmHg (38.0-50.0); VENOUS PARTIAL PRESSURE O2 64.5 mmHg (30.0-50.0); VENOUS PH 7.171 UNITS (7.330-7.430); VENOUS STANDARD HCO3 11.3 MEQ/L; VENOUS TOTAL CO2 10.1 MEQ/L (24.0-28.0)
[2021-03-30 13:00] LABS: CALCIUM LEVEL 9.1 MG/DL (8.5-10.1); CREATININE FOR GFR 1.18 MG/DL (0.55-1.30); GLOMERULAR FILTRATION RATE 56.2 (>60); PHOSPHORUS LEVEL 1.7 MG/DL (2.5-4.9); POTASSIUM SERUM 4.4 MEQ/L (3.5-5.1)
[2021-03-30] MEDS: BUDESONIDE 180MCG INHALER (PULMICORT FLEXHALER) INH SCH ×2 (13:39→20:00)
[2021-03-30] MEDS ORDERED: KCL 20MEQ IN D5/.45NACL 1000ML As Ordered ONE (14:03)
[2021-03-30] MEDS: KCL 20MEQ IN D5/0.45NS 1000ML 1,000 ML IV SCH ×3 (14:07→22:04)
--- NOTE | 2021-03-30 16:58 | REP ---
INDICATION: dka. COMPARISON: None. TECHNIQUE: The procedure was performed under the direct supervision of Dr. Alicea. The risks and benefits of the procedure were explained to the patient and informed consent was obtained. The procedure was performed in the ICU at the bedside. The right brachial vein was localized using ultrasound guidance. The skin was prepped and draped in a sterile fashion. 2% lidocaine was used as a local anesthetic. Using ultrasound guidance the brachial vein was cannulated and a 0.018 guidewire was inserted. The needle was removed and a 5.5 Surinamese dilator and peel-away sheath was inserted over the guide wire. A 5.5 Surinamese dual lumen catheter was cut to length of 38 cm. The dilator was removed and the catheter was inserted over the guide wire. A portable chest x-ray was performed and the image demonstrates the tip of the catheter to be in the SVC. The peel-away sheath was removed and the catheter was flushed with heparinized saline as per Hospital protocol. The catheter was affixed to the skin and a sterile dressing was applied. The patient tolerated the procedure well and there were no immediate complications. FINDINGS: None IMPRESSION: PICC line insertion right brachial vein with the tip ending in the SVC. <Electronically signed by Nish Enriquez > 03/30/21 1523 <Electronically signed by Fitz Alicea > 03/30/21 [id number]
[2021-03-30] MEDS: SODIUM CHLORIDE 0.9% INJ 10 ML SYR IV SCH (17:36)
[2021-03-30 18:19] LABS: BLOOD UREA NITROGEN 12 MG/DL (7-18); CALCIUM LEVEL 8.2 MG/DL (8.5-10.1); CARBON DIOXIDE LEVEL 16 MEQ/L (21-32); CHLORIDE LEVEL 115 MEQ/L (98-107); CREATININE FOR GFR 1.09 MG/DL (0.55-1.30); GLOMERULAR FILTRATION RATE > 60.0 (>60); GLUCOSE, FASTING 195 MG/DL (70-100); MAGNESIUM LEVEL 1.9 MG/DL (1.8-2.4); POTASSIUM SERUM 3.9 MEQ/L (3.5-5.1); SODIUM LEVEL 141 MEQ/L (136-145)
[2021-03-30 21:44] LABS: BLOOD UREA NITROGEN 11 MG/DL (7-18); CALCIUM LEVEL 8.4 MG/DL (8.5-10.1); CARBON DIOXIDE LEVEL 15 MEQ/L (21-32); CHLORIDE LEVEL 115 MEQ/L (98-107); GLOMERULAR FILTRATION RATE > 60.0 (>60); GLUCOSE, FASTING 178 MG/DL (70-100); MAGNESIUM LEVEL 1.8 MG/DL (1.8-2.4); POTASSIUM SERUM 3.8 MEQ/L (3.5-5.1); SODIUM LEVEL 139 MEQ/L (136-145)
[2021-03-31] VITALS: BP 152/89
[2021-03-31] MEDS: INSULIN IV RATE CHANGE DOCUMENTATION ML/HR XX SCH ×5 (00:13→07:00)
[2021-03-31 01:44] LABS: BLOOD UREA NITROGEN 9 MG/DL (7-18); CALCIUM LEVEL 8.2 MG/DL (8.5-10.1); CARBON DIOXIDE LEVEL 18 MEQ/L (21-32); CHLORIDE LEVEL 112 MEQ/L (98-107); CREATININE FOR GFR 1.02 MG/DL (0.55-1.30); GLOMERULAR FILTRATION RATE > 60.0 (>60); GLUCOSE, FASTING 173 MG/DL (70-100); POTASSIUM SERUM 3.9 MEQ/L (3.5-5.1); SODIUM LEVEL 139 MEQ/L (136-145)
[2021-03-31 02:00] VITALS: BP 146/114
[2021-03-31] MEDS: KCL 20MEQ IN D5/0.45NS 1000ML 1,000 ML IV SCH ×2 (02:06→06:06)
[2021-03-31 04:00] VITALS: BP 128/81
[2021-03-31] MEDS: INSULIN REGULAR IN 0.9 % NACL 100 UNIT in IV 1 EA IV SCH ×2 (04:11)
[2021-03-31] MEDS: SODIUM CHLORIDE 0.9% INJ 10 ML SYR IV SCH ×2 (05:10→17:40)
[2021-03-31 05:41] LABS: HEMATOCRIT 32.5 % (36.0-47.0); MEAN CORPUSCULAR HEMOGLOBIN 29.9 pg (27.0-33.0); MEAN CORPUSCULAR HGB CONC 33.5 g/dl (32.0-36.5); PLATELET COUNT, AUTOMATED 220 10^3/uL (150-450); RED BLOOD COUNT 3.65 10^6/uL (4.00-5.40); WHITE BLOOD COUNT 5.1 10^3/uL (4.0-10.0)
[2021-03-31 05:45] LABS: HEMOGLOBIN 10.9 g/dl (12.0-15.5)
[2021-03-31 06:00] VITALS: BP 167/80
[2021-03-31 06:04] LABS: BLOOD UREA NITROGEN 7 MG/DL (7-18); CALCIUM LEVEL 8.3 MG/DL (8.5-10.1); CARBON DIOXIDE LEVEL 19 MEQ/L (21-32); CHLORIDE LEVEL 118 MEQ/L (98-107); CREATININE FOR GFR 1.04 MG/DL (0.55-1.30); GLOMERULAR FILTRATION RATE > 60.0 (>60); GLUCOSE, FASTING 128 MG/DL (70-100); POTASSIUM SERUM 3.6 MEQ/L (3.5-5.1); SODIUM LEVEL 142 MEQ/L (136-145)
[2021-03-31] MEDS ORDERED: GLUCOSE 4GM CHEW TABLET PO PRN (06:40)
[2021-03-31] MEDS ORDERED: GLUCAGON INJ 1MG VIAL SC PRN (06:40)
[2021-03-31] MEDS ORDERED: DEXTROSE 50% 50 ML SYRINGE IV PRN (06:40)
[2021-03-31] MEDS: BUDESONIDE 180MCG INHALER (PULMICORT FLEXHALER) INH SCH ×2 (07:26→19:49)
[2021-03-31] MEDS: HumaLOG INSULIN (NovoLOG) PER UNIT SC SCH ×4 (07:30→20:45)
[2021-03-31] MEDS: LEVEMIR (INSULIN DETEMIR) 1 UNITS/0.01ML SC SCH ×2 (07:40→20:50)
[2021-03-31] MEDS: ENOXAPARIN 40MG/0.4ML SYRINGE (J1650 PER 10MG) SC SCH (11:58)
--- NOTE | 2021-03-31 13:41 | IPNPDOC ---
Subjective Date Seen The patient was seen on 03/31/21. Subjective Chief Complaint/HPI DKA has resolved, tolerating diet, no n/v/d Objective Physical Examination General Exam: Positive: Alert, No Acute Distress Chest Exam: Positive: Clear to auscultation, Normal air movement Heart Exam: Positive: Rate Normal, Regular Rhythm, Normal S1, Normal S2; Negative: Murmurs, Rubs Abdomen Exam: Positive: Normal bowel sounds, Soft; Negative: Tenderness, Hepatospenomegaly Skin Exam: Positive: Nl turgor and temperature; Negative: Rash, Breakdown Neuro Exam: Positive: Normal Gait, Normal Speech, Cranial Nerves 3-12 NL, Reflexes 2+ Assessment /Plan Assessment # DM type 1 with DKA - resolved, stop insulin gtt, start levemir and SS - transfer to floor - diabetic diet - home in am Plan/VTE VTE Prophylaxis Ordered?: Yes VS, I&O, 24H, Fishbone Vital Signs/I&O Vital Signs Date Time Temp Pulse Resp B/P (MAP) Pulse Ox O2 Delivery O2 Flow Rate FiO2 03/31/21 12:00 28 03/31/21 06:00 116 167/80 (109) 97 Trach Collar 5.0 03/31/21 04:00 97.1 16 I&O- Last 24 Hours up to 6 AM 03/31/21 06:00 Intake Total 5355 ml Output Total 2775 ml Balance 2580 ml Laboratory Data 24H LABS Laboratory Tests 2 03/30/21 14:06: Bedside Glucose (Misc Panel) 128H 03/30/21 15:07: Bedside Glucose (Misc Panel) 207H 03/30/21 16:31: Bedside Glucose (Misc Panel) 182H 03/30/21 17:32: Anion Gap 10, Glomerular Filtration Rate > 60.0, Calcium Level 8.2L, Magnesium Level 1.9 03/30/21 17:34: Bedside Glucose (Misc Panel) 192H 03/30/21 18:15: Bedside Glucose (Misc Panel) 198H 03/30/21 19:11: Bedside Glucose (Misc Panel) 185H 03/30/21 20:09: Bedside Glucose (Misc Panel) 171H 03/30/21 21:09: Bedside Glucose (Misc Panel) 180H 03/30/21 21:10: Anion Gap 9, Glomerular Filtration Rate > 60.0, Calcium Level 8.4L, Magnesium Level 1.8 03/30/21 22:03: Bedside Glucose (Misc Panel) 160H 03/30/21 23:09: Bedside Glucose (Misc Panel) 155H 03/31/21 00:10: Bedside Glucose (Misc Panel) 143H 03/31/21 01:01: Anion Gap 9, Glomerular Filtration Rate > 60.0, Calcium Level 8.2L 03/31/21 01:04: Bedside Glucose (Misc Panel) 103 03/31/21 02:04: Bedside Glucose (Misc Panel) 193H 03/31/21 03:17: Bedside Glucose (Misc Panel) 164H 03/31/21 04:06: Bedside Glucose (Misc Panel) 150H 03/31/21 05:10: Nucleated Red Blood Cells % (auto) 0.0, Anion Gap 5L, Glomerular Filtration Rate > 60.0, Calcium Level 8.3L 03/31/21 05:16: Bedside Glucose (Misc Panel) 132H 03/31/21 06:04: Bedside Glucose (Misc Panel) 139H 03/31/21 06:54: Bedside Glucose (Misc Panel) 154H 03/31/21 11:55: Bedside Glucose (Misc Panel) 256H CBC/BMP Laboratory Tests 03/30/21 17:32 03/30/21 21:10 03/31/21 01:01 03/31/21 05:10 Microbiology Microbiology 03/29/21 Respiratory Virus Panel (PCR) ([facility]) - Final, Complete GRABIEL RAMON MD March 31, 2021 13:41
[2021-03-31 14:39] VITALS: BP 133/93
[2021-03-31] MEDS: ONDANSETRON 4MG/2ML VIAL IV PRN ×2 (14:45→19:09)
[2021-03-31 22:00] VITALS: BP 117/72
[2021-04-01] MEDS: SODIUM CHLORIDE 0.9% INJ 10 ML SYR IV SCH ×2 (05:09→17:02)
[2021-04-01] MEDS: ONDANSETRON 4MG/2ML VIAL IV PRN ×2 (05:13→10:30)
[2021-04-01 06:00] VITALS: BP 124/74
[2021-04-01 06:26] LABS: HEMATOCRIT 34.3 % (36.0-47.0); HEMOGLOBIN 11.5 g/dl (12.0-15.5); MEAN CORPUSCULAR HEMOGLOBIN 29.3 pg (27.0-33.0); MEAN CORPUSCULAR HGB CONC 33.5 g/dl (32.0-36.5); MEAN CORPUSCULAR VOLUME 87.5 fl (80.0-96.0); PLATELET COUNT, AUTOMATED 205 10^3/uL (150-450); RED BLOOD COUNT 3.92 10^6/uL (4.00-5.40); WHITE BLOOD COUNT 4.1 10^3/uL (4.0-10.0)
[2021-04-01 06:47] LABS: BLOOD UREA NITROGEN 9 MG/DL (7-18); CALCIUM LEVEL 9.6 MG/DL (8.5-10.1); CARBON DIOXIDE LEVEL 26 MEQ/L (21-32); CHLORIDE LEVEL 115 MEQ/L (98-107); CREATININE FOR GFR 0.74 MG/DL (0.55-1.30); GLOMERULAR FILTRATION RATE > 60.0 (>60); GLUCOSE, FASTING 71 MG/DL (70-100); POTASSIUM SERUM 3.6 MEQ/L (3.5-5.1); SODIUM LEVEL 146 MEQ/L (136-145)
[2021-04-01] MEDS: HumaLOG INSULIN (NovoLOG) PER UNIT SC SCH ×4 (07:30→20:55)
[2021-04-01] MEDS: BUDESONIDE 180MCG INHALER (PULMICORT FLEXHALER) INH SCH ×2 (08:00→19:41)
[2021-04-01] MEDS: ENOXAPARIN 40MG/0.4ML SYRINGE (J1650 PER 10MG) SC SCH (10:30)
[2021-04-01] MEDS: LEVEMIR (INSULIN DETEMIR) 1 UNITS/0.01ML SC SCH ×2 (10:31→20:54)
--- NOTE | 2021-04-01 12:56 | IPNPDOC ---
Subjective Date Seen The patient was seen on 04/01/21. Subjective Chief Complaint/HPI Patient reports having nausea and vomiting yesterday following supper. She is able to eat her breakfast this morning reports feeling nauseous. Her blood sugars are stable her DKA has resolved. We will monitor her overnight to assure that she is able to tolerate her meals without any recurrent nausea or vomiting. Objective Physical Examination General Exam: Positive: Alert, Cooperative, No Acute Distress; Negative: Mild Distress, Moderate Distress, Severe Distress, Other Eye Exam: Positive: PERRLA, Conjunctiva & lids normal, EOMI; Negative: Sclera icteric ENT Exam: Positive: Atraumatic, Mucous membr. moist/pink, Pharynx Normal Chest Exam: Positive: Clear to auscultation, Normal air movement Heart Exam: Positive: Rate Normal, Regular Rhythm, Normal S1, Normal S2; Negative: Murmurs, Rubs Abdomen Exam: Positive: Normal bowel sounds, Soft; Negative: Tenderness, Hepatospenomegaly Skin Exam: Positive: Nl turgor and temperature; Negative: Rash, Breakdown Neuro Exam: Positive: Normal Gait, Normal Speech, Cranial Nerves 3-12 NL, Reflexes 2+ Assessment /Plan Assessment # DM type 1 with DKA - resolved, - Monitor overnight and discharge in a.m. if tolerating diet. -IV Zofran. # Tracheal stenosis s/p tracheostomy tube placement - stable on RA # History of non-compliance # DVT prophylaxis SCDs and lovenox Plan/VTE VTE Prophylaxis Ordered?: Yes VS, I&O, 24H, Fishbone Vital Signs/I&O Vital Signs Date Time Temp Pulse Resp B/P (MAP) Pulse Ox O2 Delivery O2 Flow Rate FiO2 04/01/21 06:00 97.6 94 18 124/74 (91) 100 Trach Collar 5.0 28 I&O- Last 24 Hours up to 6 AM 04/01/21 06:00 Intake Total 2376 ml Output Total 500 ml Balance 1876 ml Laboratory Data 24H LABS Laboratory Tests 2 03/31/21 16:45: Bedside Glucose (Misc Panel) 166H 03/31/21 20:42: Bedside Glucose (Misc Panel) 182H 04/01/21 06:09: Nucleated Red Blood Cells % (auto) 0.0, Anion Gap 5L, Glomerular Filtration Rate > 60.0, Calcium Level 9.6# 04/01/21 11:45: Bedside Glucose (Misc Panel) 171H CBC/BMP Laboratory Tests 04/01/21 06:09 Microbiology Microbiology 03/29/21 Respiratory Virus Panel (PCR) ([facility]) - Final, Complete GRABIEL RAMON MD April 01, 2021 12:55
[2021-04-01] MEDS: METOCLOPRAMIDE INJ 10MG/2ML VIAL (J2765 PER 1) IV PRN ×2 (14:26→20:54)
[2021-04-01 15:00] VITALS: BP 121/81
[2021-04-01 22:00] VITALS: BP 149/89
[2021-04-02] MEDS: SODIUM CHLORIDE 0.9% INJ 10 ML SYR IV SCH (05:09)
[2021-04-02 06:00] VITALS: BP 149/92
[2021-04-02 06:17] LABS: HEMATOCRIT 31.8 % (36.0-47.0); HEMOGLOBIN 10.8 g/dl (12.0-15.5); MEAN CORPUSCULAR HEMOGLOBIN 29.8 pg (27.0-33.0); MEAN CORPUSCULAR VOLUME 87.6 fl (80.0-96.0); PLATELET COUNT, AUTOMATED 196 10^3/uL (150-450); RED BLOOD COUNT 3.63 10^6/uL (4.00-5.40); WHITE BLOOD COUNT 3.1 10^3/uL (4.0-10.0)
[2021-04-02 06:46] LABS: BLOOD UREA NITROGEN 9 MG/DL (7-18); CALCIUM LEVEL 8.5 MG/DL (8.5-10.1); CARBON DIOXIDE LEVEL 28 MEQ/L (21-32); CHLORIDE LEVEL 112 MEQ/L (98-107); CREATININE FOR GFR 0.62 MG/DL (0.55-1.30); GLOMERULAR FILTRATION RATE > 60.0 (>60); GLUCOSE, FASTING 50 MG/DL (70-100); POTASSIUM SERUM 3.2 MEQ/L (3.5-5.1); SODIUM LEVEL 143 MEQ/L (136-145)
[2021-04-02] MEDS: HumaLOG INSULIN (NovoLOG) PER UNIT SC SCH (07:30)
[2021-04-02] MEDS: BUDESONIDE 180MCG INHALER (PULMICORT FLEXHALER) INH SCH (07:53)
[2021-04-02] MEDS ORDERED: ZOFR4TAB16 PO (08:04)
[2021-04-02] MEDS: ENOXAPARIN 40MG/0.4ML SYRINGE (J1650 PER 10MG) SC SCH (09:00)
[2021-04-02] MEDS ORDERED: POTASSIUM CHLORIDE 10 MEQ SR TABLET PO ONE (09:00)
[2021-04-02] MEDS: LEVEMIR (INSULIN DETEMIR) 1 UNITS/0.01ML SC SCH (09:00)
--- NOTE | 2021-04-02 15:35 | DSES ---
DISCHARGE SUMMARY DATE OF ADMISSION: 04/02/2021 DATE OF DISCHARGE: 04/02/2021 DISCHARGE DIAGNOSES: 1. Diabetes mellitus, type 1, with diabetic ketoacidosis. 2. History of tracheal stenosis status post tracheostomy. 3. History of noncompliance. 4. Nausea, vomiting, and diarrhea likely secondary to viral gastroenteritis. PROCEDURES PERFORMED DURING THIS HOSPITALIZATION: Peripherally inserted central catheter (PICC) line placement. CONSULTANTS ON THE CASE: None. DISPOSITION: Patient is discharged home. CONDITION ON DISCHARGE: Stable. DISCHARGE INSTRUCTIONS: Patient instructed to followup with her primary care physician (PCP) within 1 week. Patient may resume work within the next 24 hours. Patient is to resume her home insulin regimen as prescribed as well as her mother medications. She is prescribed oral Zofran as needed for the next 10 days for any nausea or vomiting symptoms. RELEVANT IMAGING STUDIES: Chest x-ray, one view, showed no radiographic evidence of acute disease in the chest. RELEVANT LABORATORY DATA: Blood gas showed a pH of 7.1. Bicarbonate was 8, anion gap was 20, blood sugar was 3323. Lipase 63, phosphorus 2.9, magnesium 2. Hemoglobin A1c was 11.3. Sodium 130, potassium 4.5, chloride 112, BUN 18, creatinine 1.19. White blood cell count was 5.8 with a hemoglobin 13.8 and hematocrit 42.5. Platelet counts were 295,000. Urinalysis was essentially unremarkable except for ketonuria and glucosuria. Beta hydroxybutyrate was greater than 46. COVID swab was negative. HOSPITAL COURSE: Carolina is a 35-year-old woman with a history of diabetes mellitus, type 1, as well as noncompliance. She presented to the hospital with several days of intractable nausea, vomiting, and diarrhea. She was found to be in diabetic ketoacidosis (DKA). She was admitted to the hospitalist service for treatment of DKA to the intensive care unit (ICU). She was placed on an insulin drip. Because they had poor venous access, patient underwent a right PICC line placement by radiology. Patient's DKA resolved within 24 hours. She was transferred to the floor and resumed on sliding scale as well as her home insulin regimen. Patient continued to have some nausea and vomiting, and her diet was slowly advanced. Clinically she improved. She was tested for COVID during this hospitalization and found to be negative. Today patient is tolerating her diet. She is feeling much better, and she is discharged home in stable condition. DISCHARGE MEDICATIONS: - Zofran 4 mg three times a day as needed for nausea or vomiting - Tylenol 500 mg every 4 hours as needed for pain - QVAR 80 mcg two puffs daily - Tresiba 25 units twice a day - NovoLog sliding scale with meals At the time of discharge, my exam indicated she has a temperature of 97.8, pulse of 87, respirations 18, blood pressure 121/81, oxygen saturation 96% on room air. General: The patient is alert and oriented times three. Appears in no acute distress. Skin is intact. Warm to touch. Head is atraumatic. Oropharynx is clear. Neck is supple. She has a tracheostomy in place. She is not exhibiting any respiratory distress. No hemoptysis is occurring from the tracheostomy. No signs of infection at the stoma site. Lung sounds are clear without rales or rhonchi. Heart is S1, S2. No murmurs, rubs, or gallops. Abdomen is soft, nontender, nondistended. Extremities without any cyanosis, clubbing, or edema. A total of 30 minutes spent completing all discharge paperwork.
== END 2021-04-02 11:22 | disposition home or self-care (01) | DRG 420 ==
LOC: M ED 21:05 → M ED INP 21:06 → ENRESERV 03-30 03:05 → M ICU 03-30 04:38 → M MSPAV 03-31 14:34 → OBSVTOIN 04-02 07:33
PROVIDERS: ADMIT Internal Medicine; ATTEND Internal Medicine
PROC: 02HV33Z Insertion of Infusion Device into Superior Vena Cava, Percutaneous Approach (ICD-10-PCS; principal; 2021-04-02)
DX: E10.10 Type 1 diabetes mellitus with ketoacidosis without coma (principal); J39.8 Other specified diseases of upper respiratory tract; A08.8 Other specified intestinal infections; Z91.19 Patient's noncompliance with other medical treatment and regimen; Z79.899 Other long term (current) drug therapy; E86.0 Dehydration; Z79.4 Long term (current) use of insulin; J45.909 Unspecified asthma, uncomplicated

== ENCOUNTER 2021-10-18 05:58 | Emergency (ER) | payer OTHER ==
[~2021-10-18] VITALS: Ht 162.6 cm; Wt 65.0 kg
[2021-10-18 05:58] VITALS: BP 158/96
--- OUTSIDE RECORDS SUMMARY | 2021-10-18 06:13 | CCD ---
Author Author [facility] Organization [facility] Address Unknown Phone Unavailable Support Name Relationship Address Phone Rosibel Philippe Next Of Kin Unknown Unavailable MCDONCARNANCY Next Of Kin [address] [place] [address] [employer] Next Of Kin [address] [place] [address] Nikki Flowers Next Of Kin [address] [facility] [address] [facility] [place] [address] ROSIBEL TONEY Next Of Kin [address] [place] [address] JAMES EVANS Next Of Kin [address] [facility] [address] [place] [address] SYL Next Of Kin [address] [place] [address] ROSIBEL ADLER Next Of Kin [address] [place] [address] MING LOPEZ Next Of Kin [address] [facility] [address] [place] [address] Unavailable MELODIE BURNETT Next Of Kin Unknown [employer] ([employer]CDONAL Next Of Kin [address] [facility] [address] [place] [address] CYNDI MCKEON Next Of Kin [address] [place] [address] MCDONALDS Next Of Kin [address] [facility] [place] [address] NEISHA TERESA Next Of Kin [address] [place] [address] ST Next Of Kin Unknown Unavailable ABIMBOLA BURNETT Next Of Kin [address] [place] [address] AMIE Next Of Kin [address] [place] [address] ANGEL BURNETT Next Of Kin [address] [place] [address] MAXIMILIANOO, (HC PROXY) MELODIE Next Of Kin [address] [place] [address] Care Team Providers Care Director Advanced Name Role Phone Chris Lentz MD Unavailable [...] Unavailable Unavailable Chris Lentz MD Unavailable Unavailable Maring, Bashir PA Unavailable Unavailable Maring, Bashir PA Unavailable Unavailable Maring, Bashir PA Unavailable Unavailable Maring, Bashir PA Unavailable Unavailable Maring, Bashir PA Unavailable Unavailable Maring, Bashir PA Unavailable Unavailable Maring, Bashir PA Unavailable Unavailable Maring, Bashir PA Unavailable Unavailable Maring, Bashir PA Unavailable Unavailable Maring, Bashir PA Unavailable Unavailable Maring, Bashir PA Unavailable Unavailable Maring, Bashir PA Unavailable Unavailable Maring, Bashir PA Unavailable Unavailable Maring, Bashir PA Unavailable Unavailable Maring, Bashir PA Unavailable Unavailable Maring, Bashir PA Unavailable Unavailable Jonah, Nikki DRAFTING DETAILER DRAFTING DETAILER Unavailable Unavailable Nalla, Jackie Unavailable Nalla, Jackie Unavailable Nalla, Jackie Unavailable Jonah, A Nikki DRAFTING DETAILER Unavailable Unavailable Jonah, A Nikki DRAFTING DETAILER Unavailable Unavailable Jonah, A Nikki DRAFTING DETAILER Unavailable Unavailable Jonah, A Nikki DRAFTING DETAILER Unavailable Unavailable Jonah, A Nikki DRAFTING DETAILER Unavailable Unavailable Jonah, A Nikki DRAFTING DETAILER Unavailable Unavailable Jonah, A Nikki DRAFTING DETAILER Unavailable Unavailable Jonah, A Nikki DRAFTING DETAILER Unavailable Unavailable [place], A Nikki DRAFTING DETAILER Unavailable Unavailable [place], A Nikki DRAFTING DETAILER Unavailable Unavailable [place], A Nikki DRAFTING DETAILER Unavailable Unavailable [place], A Nikki DRAFTING DETAILER Unavailable Unavailable [place], A Nikki DRAFTING DETAILER Unavailable Unavailable [place], A Nikki DRAFTING DETAILER Unavailable Unavailable [place], A Nikki DRAFTING DETAILER Unavailable Unavailable [place], A Nikki DRAFTING DETAILER Unavailable Unavailable [place], A Nikki DRAFTING DETAILER Unavailable Unavailable [place], A Nikki DRAFTING DETAILER Unavailable Unavailable [place], A Nikki DRAFTING DETAILER Unavailable Unavailable [place], A Nikki DRAFTING DETAILER Unavailable Unavailable [place], A Nikki DRAFTING DETAILER Unavailable Unavailable [place], A Nikki DRAFTING DETAILER Unavailable Unavailable [place], A Nikki DRAFTING DETAILER Unavailable Unavailable [place], A Nikki DRAFTING DETAILER Unavailable Unavailable [place], A Nikki DRAFTING DETAILER Unavailable Unavailable [place], A Nikki DRAFTING DETAILER Unavailable Unavailable [place], A Nikki DRAFTING DETAILER Unavailable Unavailable [place], A Nikki DRAFTING DETAILER Unavailable Unavailable [place], A Nikki DRAFTING DETAILER Unavailable Unavailable [place], A Nikki DRAFTING DETAILER Unavailable Unavailable [place], A Nikki DRAFTING DETAILER Unavailable Unavailable NALLA, JACKIE Unavailable Unavailable ANNIE, GABRIELLA PA Unavailable Unavailable [...] Unavailable Unavailable ANNIE, GABRIELLA PA Unavailable Unavailable RING, K KIM PA Unavailable Unavailable RING, K KIM PA Unavailable Unavailable RING, K KIM PA Unavailable Unavailable RING, K KIM PA Unavailable Unavailable RING, K KIM PA Unavailable Unavailable RING, K KIM PA Unavailable Unavailable RING, K KIM PA Unavailable Unavailable RING, K KIM PA Unavailable Unavailable RING, K KIM PA Unavailable Unavailable RING, K KIM PA Unavailable Unavailable RING, K KIM PA Unavailable Unavailable RING, K KIM PA Unavailable Unavailable RING, K KIM PA Unavailable Unavailable RING, K KIM PA Unavailable Unavailable RING, K KIM PA Unavailable Unavailable RING, K KIM PA Unavailable Unavailable RING, K KIM PA Unavailable Unavailable RING, K KIM PA Unavailable Unavailable RING, K KIM PA Unavailable Unavailable RING, K KIM PA Unavailable Unavailable RING, K KIM PA Unavailable Unavailable RING, K KIM PA Unavailable Unavailable RING, K KIM PA Unavailable Unavailable Estefani Jessica Unavailable Unavailable EstefaniHarveya Unavailable Unavailable EstefaniJessica hobson MD Unavailable Unavailable EstefaniHarveya Unavailable Unavailable EstefaniJessica MD Unavailable Unavailable EstefaniHarveya Unavailable Unavailable EstefaniJessica stephen MD Unavailable Unavailable Estefani, Jessica Unavailable Unavailable EstefaniJessica stephen MD Unavailable Unavailable EstefaniJessica stephen MD Unavailable Unavailable EstefaniHarveya Unavailable Unavailable EstefaniHarveya Unavailable Unavailable Estefani Jessica Unavailable Unavailable Estefani Jessica Unavailable Unavailable Estefani Jessica Unavailable Unavailable Estefani Jessica Unavailable Unavailable EstefaniHarveya Unavailable Unavailable EstefaniHarveya Unavailable Unavailable EstefaniHarveya Unavailable Unavailable Estefani Jessica Unavailable Unavailable Estefani Jessica Unavailable Unavailable Estefani Jessica Unavailable Unavailable Estefani Jessica Unavailable Unavailable Estefani Jessica Unavailable Unavailable EstefaniHarveya Unavailable Unavailable Estefani Jessica Unavailable Unavailable Estefani, Jessica Unavailable Unavailable Estefani, Jessica MD Unavailable Unavailable Jessica Jara MD Unavailable Unavailable Jessica Jara MD Unavailable Unavailable Jessica Jara MD Unavailable Unavailable Estefani, Jessica MD Unavailable Unavailable EstefaniHarveya Unavailable Unavailable Jessica Jara MD Unavailable Unavailable Re-disclosure Warning The records that [...] is protected by Article 27-F of the [facility] Public Health law. If you continue you may have access to information: Regarding HIV / AIDS; Provided by facilities licensed or operated by the [facility] Office of Mental Health; or Provided by the [facility] Office for People With Developmental Disabilities. If such information is present, then the following [facility] mandated warning applies: This information has [...] law may result in a fine or correction sentence or both. A general authorization for the release of medical or other information is NOT sufficient authorization for further disc losure. Family History Family Member Name Family Member Gender Family Member Status Date o f Status Description Data Source(s) Unknown Unknown Problem [facility] ([facility]) Encounters Encounter Providers Location Date Indications Data Source(s ) Outpatient Attender: Jackie Cageender: JACKIE SANDERS 2021 12:00:00 AM [facility] Outpatient Attender: JACKIE Angel: Jackie Destiny 09/15/2021 12:00:00 AM EDT [facility] Cesar Lentz MD: [address] [place] [address], Ph. Attender: Cesar Lentz MD [facility] Medical 07/02/2021 12:00:00 AM EDT [facility] ([facility]) Outpatient Attender: GABRIELLA GAMA [id number] 05/28/2021 1 2:00:00 AM EDT Type 1 diabetes mellitus with hypoglycemia without coma [facility] Type 1 diabetes mellitus with hypoglycem ia without coma Nikki Mckenzie [facility]: [address] [place] [address], Ph. Attender: Nikki Mckenzie [facility] Medical 05/07/2021 12:00:00 AM EDT [facility] ([facility]) Nikki Mckenzie [facility]: [address] [place] [address], Ph. Attender: Nikki Mckenzie [facility] Medical 05/07/2021 12:00:00 AM EDT [facility] ([facility]) Cesar Lentz MD: [address] [place] [address], Ph. Attender: Cesar Lentz MD [facility] Medical 04/22/2021 12:00:00 AM EDT [facility] ([facility]) Cesar Lentz MD: [address] [place] [address], Ph. Attender: Cesar Lentz MD [facility] Medical 04/22/2021 12:00:00 AM EDT [facility] ([facility]) Cesar Lentz MD: [address] [place] [address], Ph. Attender: Cesar Lentz MD [facility] Medical 04/22/2021 12:00:00 AM EDT [facility] ([facility]) Outpatient Attender: KIM Liu Primary 03/26/2021 05:15:00 PM EDT [facility] ([facility]) Cesar Lentz MD: [address] [place] [address], Ph. Attender: Cesar Lentz MD [facility] Medical 03/10/2021 12:00:00 AM EDT [facility] ([facility]) Cesar Lentz MD: [address] [place] [address], Ph. Attender: Cesar Lentz MD [facility] Medical 03/10/2021 12:00:00 AM EDT [facility] ([facility]) Cesar Lentz MD: [address] [place] [address], Ph. Attender: Cesar Lentz MD [facility] Medical 03/10/2021 12:00:00 AM EDT [facility] ([facility]) Cesar Lentz MD: [address] [place] [address], Ph. Attender: Cesar Lentz MD [facility] Medical 03/10/2021 12:00:00 AM EDT [facility] ([facility]) Outpatient Attender: GABRIELLA GAMA [id number] 02/20/2021 1 2:00:00 AM EDT Type 1 diabetes mellitus with hyperglycemia [facility] Type 1 diabetes mellitus with hyperglyce oneil Lentz MD: [address] [place] [address], Ph. Attender: Cesar Lentz MD [facility] Medical 02/10/2021 12:00:00 AM EDT [facility] ([facility]) Cesar Lentz MD: [address] [place] [address], Ph. Attender: Cesar Lentz MD [facility] Medical 02/10/2021 12:00:00 AM EDT [facility] ([facility]) Cesar Lentz MD: [address] [place] [address], Ph. Attender: Cesar Letnz MD [facility] Medical 02/10/2021 12:00:00 AM EDT [facility] ([facility]) Cesar Lentz MD: [address] [place] [address], Ph. Attender: Cesar Lentz MD [facility] Medical 02/10/2021 12:00:00 AM EDT [facility] ([facility]) Cesar Lentz MD: [address] [place] [address], Ph. Attender: Cesar Lentz MD [facility] Medical 02/10/2021 12:00:00 AM EDT [facility] ([facility]) Cesar Lentz MD: [address] [place] [address], Ph. Attender: Cesar Lentz MD [facility] Medical 12/25/2020 12:00:00 AM EST [facility] ([facility]) Cesar Lentz MD: [address] [place] [address], Ph. Attender: Cesar Lentz MD [facility] Medical 12/25/2020 12:00:00 AM EST [facility] ([facility]) Cesar Lentz MD: [address] [place] [address], Ph. Attender: Cesar Lentz MD [facility] Medical 12/25/2020 12:00:00 AM EST [facility] ([facility]) Cesar Lentz MD: [address] [place] [address], Ph. Attender: Cesar Lentz MD [facility] Medical 12/25/2020 12:00:00 AM EST [facility] ([facility]) Cesar Lentz MD: [address] [place] [address], Ph. Attender: Cesar Lentz MD [facility] Medical 12/25/2020 12:00:00 AM EST [facility] ([facility]) Cesar Lentz MD: [address] [place] [address], Ph. Attender: Cesar Lentz MD [facility] Medical 12/25/2020 12:00:00 AM EST [facility] ([facility]) Outpatient Attender: Bashir GAMA 12/24/19 10:49:12 AM EST - 12/24/2020 11:00:40 AM EST [facility] ([facility] ) Outpatient Attender: JACKIE SANDERS 11/19/2020 12:00:00 AM [facility] Cesar Lentz MD: [address] [place] [address], Ph. Attender: Cesar Lentz MD [facility] Medical 09/25/2020 12:00:00 AM EST [facility] ([facility]) Cesar Lentz MD: [address] [place] [address], Ph. Attender: Cesar Lentz MD [facility] Medical 09/25/2020 12:00:00 AM EST [facility] ([facility]) Cesar Lentz MD: [address] [place] [address], Ph. Attender: Cesar Lentz MD [facility] Medical 09/25/2020 12:00:00 AM EST [facility] ([facility]) Cesar Lentz MD: [address] [place] [address], Ph. Attender: Cesar Lentz MD [facility] Medical 09/25/2020 12:00:00 AM EST [facility] ([facility]) Cesar Lentz MD: [address] [place] [address], Ph. Attender: Cesar Lentz MD [facility] Medical 09/25/2020 12:00:00 AM EST [facility] ([facility]) Cesar Lentz MD: [address] [place] [address], Ph. Attender: Cesar Lentz MD [facility] Medical 09/25/2020 12:00:00 AM EST [facility] ([facility]) Cesar Lentz MD: [address] [place] [address], Ph. Attender: Cesar Lentz MD [facility] Medical 09/25/2020 12:00:00 AM EST [facility] ([facility]) Outpatient Attender: MICHAEL JACQUES 09/02/2020 05:15:00 P M EDT [facility] Outpatient Attender: GABRIELLA GAMA [id number] 08/19/2020 1 2:00:00 AM EDT Type 1 diabetes mellitus with hyperglycemia [facility] Type 1 diabetes mellitus with hyperglyce [facility] Outpatient Attender: Jessica Jara MD 08/19/2020 12:00:00 A M EDT [facility] Immunizations Vaccine Date Status Description Data Source(s) COVID-19, mRNA, LNP-S, PF, 100 mcg/0.5 mL dose 03/10/2021 10 :46:37 AM EDT completed .5 mL [facility] ([facility]) COVID-19, mRNA, LNP-S, PF, 100 mcg/0.5 mL dose 03/10/2021 10 :46:37 AM EDT completed .5 mL [facility] ([facility]) COVID-19, mRNA, LNP-S, PF, 100 mcg/0.5 mL dose 03/10/2021 10 :46:37 AM EDT completed .5 mL [facility] ([facility]) COVID-19, mRNA, LNP-S, PF, 100 mcg/0.5 mL dose 03/10/2021 10 :46:37 AM EDT completed .5 mL [facility] ([facility]) COVID-19 VACCINE Moderna 03/10/2021 12:00:00 AM EDT completed [facility] Vaccine Series Complete: YESThis Data wa s Submitted to [facility] Via [employer]. COVID-19, mRNA, LNP-S, PF, 100 mcg/0.5 mL dose 02/10/2021 09 :12:40 PM EDT completed .5 mL [facility] ([facility]) COVID-19, mRNA, LNP-S, PF, 100 mcg/0.5 mL dose 02/10/2021 09 :12:40 PM EDT completed .5 mL [facility] ([facility]) COVID-19, mRNA, LNP-S, PF, 100 mcg/0.5 mL dose 02/10/2021 09 :12:40 PM EDT completed .5 mL [facility] ([facility]) COVID-19, mRNA, LNP-S, PF, 100 mcg/0.5 mL dose 02/10/2021 09 :12:40 PM EDT completed .5 mL [facility] ([facility]) COVID-19, mRNA, LNP-S, PF, 100 mcg/0.5 mL dose 02/10/2021 09 :12:40 PM EDT completed .5 mL [facility] ([facility]) COVID-19 VACCINE Moderna 02/10/2021 12:00:00 AM EDT completed [facility] Vaccine Series Complete: NOThis Data was Submitted to [facility] [employer]. New in 2011. IIV4 09/25/2020 02:34:00 PM EST completed .5 mL [facility] ([facility]) New in 2011. IIV4 09/25/2020 02:34:00 PM EST completed .5 mL [facility] ([facility]) New in 2011. IIV4 09/25/2020 02:34:00 PM EST completed .5 mL [facility] ([facility]) New in 2011. IIV4 09/25/2020 02:34:00 PM EST completed 0.5 mL [facility] ([facility]) New in 2011. IIV4 09/25/2020 02:34:00 PM EST completed .5 mL [facility] ([facility]) New in 2011. IIV4 09/25/2020 02:34:00 PM EST completed .5 mL [facility] ([facility]) New in 2011. IIV4 09/25/2020 02:34:00 PM EST completed .5 mL [facility] ([facility]) Medications Medication Brand Name Start Date Product Form Dose Route Admi nistrative Instructions Pharmacy Instructions Status Indications Reaction Description Data Source(s) Baqsimi One Pack 3 MG/DOSE Nasal Powder (Glucagon) 2863-2508 -11 05/28/2021 12:00:00 AM EDT active Bradford 3mg in one nostril to treat severe hypoglycemia. Dx E10.65 . [facility] Tresiba FlexTouch 100 UNIT/ML Subcutaneo us Solution Pen-injector (insulin degludec) 2624-1978-11 05/28/2021 12:00:00 AM EDT active Type 1 diabetes mellitus with hyperglycemia Inject 21 units i n the morning and 20 units in the evening as directed. MDD 63 units with priming and titration [facility] Type 1 diabetes mellitus with hyperglyce oneil OneTouch Ultra In Vitro Strip 40008-927-53 05/28/2021 12:00:00 AM EDT active Type 1 diabetes mellitus with hyperglycemia Use as instructed 6 times daily to check sugars. Dx: E10.65 [facility] Type 1 diabetes mellitus with hyperglyce oneil Insulin Pen Needle 31G X 6 MM [address] 02/20/2021 12:00:00 AM EDT active Use as directed. With Tresiba and Novolo g pens up to 6 times daily. E 10.65 [facility] Insulin, Aspart, Human 100 UNT/ML Inject able Solution Insulin Aspart 100 UNIT/ML Subcutaneous Solution (NOVOLOG) Insulin Aspart 100 UNIT/ML Subcutaneous Solution (NOVOLOG) 02/05/2021 12:00:00 AM EDT act rowena Type 1 diabetes mellitus with hyperglycemia Inject as per sliding scale. MDD- 95 units with titration. Dx: E10.65 [facility] Type 1 diabetes mellitus with hyperglyce oneil OneTouch Ultra In Vitro Strip 81116-749-53 11/03/2020 12:00:00 AM EST aborted Type 1 diabetes mellitus with hyperglycemia USE TO CHECK BLOOD GLUCOSE 6 TIMES DAILY [facility] Type 1 diabetes mellitus with hyperglyce oneil Insulin Syringe 31G X 5/16" 1 ML [address] 09/19/2020 12:00:00 AM EST active Type 1 diabetes mellitus with hyperglycemia Use as directed. USE DIRECTED WITH INSULIN INJECTIONS UP TO 6 TIMES DAILY [facility] Type 1 diabetes mellitus with hyperglyce oneil Dexcom G6 Sensor [id number] 07/02/2020 12:00:00 AM EDT 1 {each} Does not apply aborted Type 1 diabetes mellitus with hyperg lycemia 1 each by Does not apply route every 7 (seven) days [facility] Type 1 diabetes mellitus with hyperglyce oneil Dexcom G6 Front Desk Clerk Device [id number] 07/02/2020 12:00:00 AM EDT aborted Type 1 diabetes mellitus with hyperglycemia GABRIELA Y DIRECTED [facility] Type 1 diabetes mellitus with hyperglyce oneil Tegaderm Film 4"x4-3/4" 7201-9917-23 07/02/2020 12:00:00 AM EDT aborted Type 1 diabetes mellitus with hyperglycemia GABRIELA Y DIRECTED [facility] Type 1 diabetes mellitus with hyperglyce oneil Dexcom G6 Transmitter [id number] 07/02/2020 12:00:00 AM EDT aborted Type 1 diabetes mellitus with hyperglycemia DAILY DIRECTE D [facility] Type 1 diabetes mellitus with hyperglyce oneil Adhesive Remover Wipes XL [id number] 07/02/2020 12:00:00 AM EDT 1 {each} Topical aborted Type 1 diabetes mellitus with hyperg lycemia Apply 1 each topically once a week [facility] Type 1 diabetes mellitus with hyperglyce oneil Insulin Degludec 100 UNIT/ML Subcutaneou s Solution Pen-injector (Tresiba FlexTouch) [id number] 04/01/2020 12:00:00 AM EDT aborted Type 1 diabetes mellitus with hyperglycemia Inject 17 units in the mor dorene and 17 units in the evening as directed. MDD 58 units with priming and titration [facility] Type 1 diabetes mellitus with hyperglyce oneil Ergocalciferol 13077 UNT Oral Capsule Er gocalciferol 1.25 MG (78135 UT) Oral Capsule (ERGOCALCIFEROL) Ergocalciferol 1.25 MG (48139 UT) Oral C apsule (ERGOCALCIFEROL) 11/23/2019 12:00:00 AM EST 96117 U Oral active Take 1 capsule by mouth once a week For 8 weeks only. [facility] Glucagon 3 MG/DOSE Nasal Powder (BAQSIMI ONE PACK) [id number] 10/29/2019 12:00:00 AM EST aborted Bradford 3m g in one nostril to treat severe hypoglycemia. Dx E10.65 . [facility] Glucagon 1 MG Injection glucagon (GLUCAGON EMERGENCY) 1 MG injection glucagon (GLUCAGON EMERGENCY) 1 MG injection 10/11/2018 12:00:00 AM EST aborted Type 1 diabetes mellitus with hyperglycemia Inject 1 mg SC/IM for severe hypoglycemic event. [facility] Type 1 diabetes mellitus with hyperglyce oneil Dexamethasone 1 MG/ML Ophthalmic Solutio n dexamethasone sodium phosphate 0.1 % eye drops INSTILL 2 DROPS THROUGH TRACHE SITE THREE TIMES DAILY FOR 5 DAYS INSTRUCTED dexamethasone sodium phosphate 0.1 % eye drops INSTILL 2 DROPS THROUGH TRACHE SITE THREE TIMES DAILY FOR 5 DAYS INSTRUCTED completed dexamethasone phosphate 1 MG/ML Ophthalmic Solution [facility] ([facility]) Ciprofloxacin 3 MG/ML Ophthalmic Solutio n ciprofloxacin 0.3 % eye drops INSTILL 2 DROPS THROUGH TRACHE SITE THREE TIMES DAILY FOR 5 DAYS INSTRUCTED ciprofloxacin 0.3 % eye drops INSTILL 2 DROPS THROUGH TRACHE SITE THREE TIMES DAILY FOR 5 DAYS INSTRUCTED complet ed ciprofloxacin 3 MG/ML Ophthalmic Solution [facility] ([facility]) Cholecalciferol 2000 UNT Oral Tablet cho lecalciferol (vitamin D3) 50 mcg (2,000 unit) tablet TK ONE T PO D cholecalciferol (vitamin D3) 50 mcg (2,0 00 unit) tablet TK ONE T PO D completed cholecalciferol 0.05 MG Oral Tablet [facility] ([facility]) Prednisone 20 MG Oral Tablet prednisone 20 mg tablet T K 2 TS PO D FOR 4 DAYS prednisone 20 mg tablet TK 2 TS PO D FOR 4 DAYS completed prednisone 20 MG Oral Tablet [facility] ([facility]) Cholecalciferol 2000 UNT Oral Tablet cho lecalciferol (vitamin D3) 50 mcg (2,000 unit) tablet TK ONE T PO D cholecalciferol (vitamin D3) 50 mcg (2,0 00 unit) tablet TK ONE T PO D completed cholecalciferol 0.05 MG Oral Tablet [facility] ([facility]) Lisinopril 5 MG Oral Tablet lisinopril 5 mg tablet TK 1 T PO QD lisinopril 5 mg tablet TK 1 T PO QD completed li sinopril 5 MG Oral Tablet [facility] ([facility]) Ibuprofen 600 MG Oral Tablet ibuprofen 600 mg tablet ibuprofen 6 00 mg tablet completed ibuprofen 600 MG Oral Tablet [facility] ([facility]) Lisinopril 5 MG Oral Tablet lisinopril 5 mg tablet TK 1 T PO QD lisinopril 5 mg tablet TK 1 T PO QD completed li sinopril 5 MG Oral Tablet [facility] ([facility]) Insulin, Aspart, Human 100 UNT/ML Inject able Solution [NovoLog] Novolog U-100 Insulin aspart 100 unit/mL subcutaneous solution INJECT PER SLIDING SCALE MDD 95 UNITS WITH TITRATION Novolog U-100 Insulin aspart 100 unit/mL subcutaneous solution INJECT PER SLIDING SCALE MDD 95 UNITS WITH TITRATION completed insulin aspart, human 100 UNT/ML Injectable Solution [NovoLog] [facility] ([facility]) Cholecalciferol 2000 UNT Oral Tablet cho lecalciferol (vitamin D3) 50 mcg (2,000 unit) tablet TK ONE T PO D cholecalciferol (vitamin D3) 50 mcg (2,0 00 unit) tablet TK ONE T PO D completed cholecalciferol 0.05 MG Oral Tablet [facility] ([facility]) Lisinopril 5 MG Oral Tablet lisinopril 5 mg tablet TK 1 T PO QD lisinopril 5 mg tablet TK 1 T PO QD completed li sinopril 5 MG Oral Tablet [facility] ([facility]) Cholecalciferol 5000 UNT Oral Capsule Vitamin D3 125 M CG (5000 [place]) Oral Capsule Vitamin D3 125 MCG (5000 [place]) Oral Capsule 5000 U Oral aborted Take 5,000 Units by mouth Once Daily [facility] Lisinopril 5 MG Oral Tablet lisinopril 5 mg tablet TK 1 T PO QD lisinopril 5 mg tablet TK 1 T PO QD completed li sinopril 5 MG Oral Tablet [facility] ([facility]) Phosphorous Supplement 280 mg-160 mg-250 mg oral powder packet MIX 1 PACKET AND DRINK THREE TIMES DAILY [id number] completed Phosphorous Supplement 280 mg-160 mg-250 mg oral powder packet [facility]ND[facility] ([facility]) Baqsimi 3 mg/actuation nasal spray SPRAY 3MG IN ONE NOSTRIL TO TREAT SEVERE HYPOGLYCEMIA 711259 completed gl ucagon 3 MG Nasal Powder [Baqsimi] [facility]ND[facility] ([facility]) OneTouch Ultra Blue Test Strip USE TO CHECK BLOOD GLUCOSE 6 TIMES D [id number] completed OneTouch Ultra Blue Te [place] Strip [place] ([facility]) Cholecalciferol 62217 UNT Oral Capsule c holecalciferol (vitamin D3) 1,250 mcg (50,000 unit) capsule TK 1 C PO ONCE PER WEEK cholecalciferol (vitamin D3) 1,250 mcg (50,000 unit) capsule TK 1 C PO ONCE PER WEEK completed cholecalciferol 1.25 MG Oral Capsule [facility]ND[facility] ([facility]) Baqsimi 3 mg/actuation nasal spray SPRAY 3MG IN ONE NOSTRIL TO TREAT SEVERE HYPOGLYCEMIA 931245 completed gl ucagon 3 MG Nasal Powder [Baqsimi] CYNDI ([facility]) Prednisone 20 MG Oral Tablet prednisone 20 mg tablet T K 2 TS PO D FOR 4 DAYS prednisone 20 mg tablet TK 2 TS PO D FOR 4 DAYS completed prednisone 20 MG Oral Tablet CYNDI ([facility]) Prednisone 20 MG Oral Tablet prednisone 20 mg tablet T K 2 TS PO D FOR 4 DAYS prednisone 20 mg tablet TK 2 TS PO D FOR 4 DAYS completed prednisone 20 MG Oral Tablet [facility] ([facility]) atorvastatin 40 MG Oral Tablet atorvastatin 40 mg tabl et atorvastatin 40 mg tablet completed atorvastatin 40 MG Oral Tablet [facility] ([facility]) Ergocalciferol 20958 UNT Oral Capsule er gocalciferol (vitamin D2) 1,250 mcg (50,000 unit) capsule TK 1 C PO 1 TIME A WK FOR 8 WKS ONLY ergocalciferol (vitamin D2) 1,250 mcg (50,000 unit) capsule TK 1 C PO 1 TIME A WK FOR 8 WKS ONLY completed ergocalciferol 1 .25 MG Oral Capsule CYND[facility] ([facility]) Phosphorous Supplement 280 mg-160 mg-250 mg oral powder packet MIX 1 PACKET AND DRINK THREE TIMES DAILY [id number] completed Phosphorous Supplement 280 mg-160 mg-250 mg oral powder packet [facility] ([facility]) atorvastatin 20 MG Oral Tablet atorvastatin 20 mg tabl et atorvastatin 20 mg tablet completed atorvastatin 20 MG Oral Tablet [facility] ([facility]) Cholecalciferol 21578 UNT Oral Capsule c holecalciferol (vitamin D3) 1,250 mcg (50,000 unit) capsule TK 1 C PO ONCE PER WEEK cholecalciferol (vitamin D3) 1,250 mcg (50,000 unit) capsule TK 1 C PO ONCE PER WEEK completed cholecalciferol 1.25 MG Oral Capsule [facility] ([facility]) Phosphorous Supplement 280 mg-160 mg-250 mg oral powder packet MIX 1 PACKET AND DRINK THREE TIMES DAILY [id number] completed Phosphorous Supplement 280 mg-160 mg-250 mg oral powder packet [place] ([facility]) Baqsimi 3 mg/actuation nasal spray SPRAY 3MG IN ONE NOSTRIL TO TREAT SEVERE HYPOGLYCEMIA 068500 completed gl ucagon 3 MG Nasal Powder [Baqsimi] CYNDI ([facility]) Phosphorous Supplement 280 mg-160 mg-250 mg oral powder packet MIX 1 PACKET AND DRINK THREE TIMES DAILY 074549 completed Phosphorous Supplement 280 mg-160 mg-250 mg oral powder packet [facility] ([facility]) Ergocalciferol 44696 UNT Oral Capsule er gocalciferol (vitamin D2) 1,250 mcg (50,000 unit) capsule TK 1 C PO 1 TIME A WK FOR 8 WKS ONLY ergocalciferol (vitamin D2) 1,250 mcg (50,000 unit) capsule TK 1 C PO 1 TIME A WK FOR 8 WKS ONLY completed ergocalciferol 1 .25 MG Oral Capsule [facility] ([facility]) Ciprofloxacin 3 MG/ML Ophthalmic Solutio n ciprofloxacin 0.3 % eye drops INSTILL 2 DROPS THROUGH TRACHE SITE THREE TIMES DAILY FOR 5 DAYS INSTRUCTED ciprofloxacin 0.3 % eye drops INSTILL 2 DROPS THROUGH TRACHE SITE THREE TIMES DAILY FOR 5 DAYS INSTRUCTED complet ed ciprofloxacin 3 MG/ML Ophthalmic Solution [facility] ([facility]) Ergocalciferol 50340 UNT Oral Capsule er gocalciferol (vitamin D2) 1,250 mcg (50,000 unit) capsule TK 1 C PO 1 TIME A WK FOR 8 WKS ONLY ergocalciferol (vitamin D2) 1,250 mcg (50,000 unit) capsule TK 1 C PO 1 TIME A WK FOR 8 WKS ONLY completed ergocalciferol 1 .25 MG Oral Capsule [facility] ([facility]) Ciprofloxacin 3 MG/ML Ophthalmic Solutio n ciprofloxacin 0.3 % eye drops INSTILL 2 DROPS THROUGH TRACHE SITE THREE TIMES DAILY FOR 5 DAYS INSTRUCTED ciprofloxacin 0.3 % eye drops INSTILL 2 DROPS THROUGH TRACHE SITE THREE TIMES DAILY FOR 5 DAYS INSTRUCTED complet ed ciprofloxacin 3 MG/ML Ophthalmic Solution [facility] ([facility]) Dexamethasone 1 MG/ML Ophthalmic Solutio n dexamethasone sodium phosphate 0.1 % eye drops INSTILL 2 DROPS THROUGH TRACHE SITE THREE TIMES DAILY FOR 5 DAYS INSTRUCTED dexamethasone sodium phosphate 0.1 % eye drops INSTILL 2 DROPS THROUGH TRACHE SITE THREE TIMES DAILY FOR 5 DAYS INSTRUCTED completed dexamethasone phosphate 1 MG/ML Ophthalmic Solution [facility] ([facility]) Prednisone 20 MG Oral Tablet prednisone 20 mg tablet T K 2 TS PO D FOR 4 DAYS prednisone 20 mg tablet TK 2 TS PO D FOR 4 DAYS completed prednisone 20 MG Oral Tablet [facility] ([facility]) Cholecalciferol 2000 UNT Oral Tablet cho lecalciferol (vitamin D3) 50 mcg (2,000 unit) tablet TK ONE T PO D cholecalciferol (vitamin D3) 50 mcg (2,0 00 unit) tablet TK ONE T PO D completed cholecalciferol 0.05 MG Oral Tablet [facility] ([facility]) Dexamethasone 1 MG/ML Ophthalmic Solutio n dexamethasone sodium phosphate 0.1 % eye drops INSTILL 2 DROPS THROUGH TRACHE SITE THREE TIMES DAILY FOR 5 DAYS INSTRUCTED dexamethasone sodium phosphate 0.1 % eye drops INSTILL 2 DROPS THROUGH TRACHE SITE THREE TIMES DAILY FOR 5 DAYS INSTRUCTED completed dexamethasone phosphate 1 MG/ML Ophthalmic Solution [facility] ([facility]) Baqsimi 3 mg/actuation nasal spray SPRAY 3MG IN ONE NOSTRIL TO TREAT SEVERE HYPOGLYCEMIA 371896 completed gl ucagon 3 MG Nasal Powder [Baqsimi] [place] ([facility]) atorvastatin 20 MG Oral Tablet atorvastatin 20 mg tabl et atorvastatin 20 mg tablet completed atorvastatin 20 MG Oral Tablet [place] ([facility]) Insulin, Aspart, Human 100 UNT/ML Inject able Solution [NovoLog] Novolog U-100 Insulin aspart 100 unit/mL subcutaneous solution INJECT PER SLIDING SCALE MDD 95 UNITS WITH TITRATION Novolog U-100 Insulin aspart 100 unit/mL subcutaneous solution INJECT PER SLIDING SCALE MDD 95 UNITS WITH TITRATION completed insulin aspart, human 100 UNT/ML Injectable Solution [NovoLog] [place] ([facility]) Cholecalciferol 2000 UNT Oral Tablet cho lecalciferol (vitamin D3) 50 mcg (2,000 unit) tablet TK ONE T PO D cholecalciferol (vitamin D3) 50 mcg (2,0 00 unit) tablet TK ONE T PO D completed cholecalciferol 0.05 MG Oral Tablet [place] ([facility]) Insulin, Aspart, Human 100 UNT/ML Inject able Solution [NovoLog] Novolog U-100 Insulin aspart 100 unit/mL subcutaneous solution INJECT PER SLIDING SCALE MDD 95 UNITS WITH TITRATION Novolog U-100 Insulin aspart 100 unit/mL subcutaneous solution INJECT PER SLIDING SCALE MDD 95 UNITS WITH TITRATION completed insulin aspart, human 100 UNT/ML Injectable Solution [NovoLog] [place] ([facility]) Ergocalciferol 29513 UNT Oral Capsule er gocalciferol (vitamin D2) 1,250 mcg (50,000 unit) capsule TK 1 C PO 1 TIME A WK FOR 8 WKS ONLY ergocalciferol (vitamin D2) 1,250 mcg (50,000 unit) capsule TK 1 C PO 1 TIME A WK FOR 8 WKS ONLY completed ergocalciferol 1 .25 MG Oral Capsule [place] ([facility]) insulin syringe U-100 with needle 1 mL 31 gauge x 5/16" [id number] completed insulin syringe U-100 with needl e 1 mL 31 gauge x 5/16" [place] ([facility]) atorvastatin 20 MG Oral Tablet atorvastatin 20 mg tabl et atorvastatin 20 mg tablet completed atorvastatin 20 MG Oral Tablet [place] ([facility]) Lisinopril 5 MG Oral Tablet lisinopril 5 mg tablet TK 1 T PO QD lisinopril 5 mg tablet TK 1 T PO QD completed li sinopril 5 MG Oral Tablet [facility] ([facility]) Lisinopril 10 MG Oral Tablet lisinopril 10 mg tablet T K 1 T PO D lisinopril 10 mg tablet TK 1 T PO D completed lisinopril 10 MG Oral Tablet [facility] ([facility]) Ibuprofen 600 MG Oral Tablet ibuprofen 600 mg tablet ibuprofen 6 00 mg tablet completed ibuprofen 600 MG Oral Tablet [facility] ([facility]) OneTouch Ultra Test strips USE INSTRUCTED 6 TIMES D AILY TO CHECK SUGARS [id number] completed OneTouch Ultra Test strips [place] ([facility]) Phosphorous Supplement 280 mg-160 mg-250 mg oral powder packet MIX 1 PACKET AND DRINK THREE TIMES DAILY 255448 completed Phosphorous Supplement 280 mg-160 mg-250 mg oral powder packet [place] ([facility]) Unifine Pentips 31 gauge x 1/4" needle U SE DIRECTED WITH TRESIBA AND NOVOLOG PENS UP TO 6 TIMES DAILY 640871 completed Unifine Pentips 31 gauge x 1/4" needle [facility] ([facility]) atorvastatin 40 MG Oral Tablet atorvastatin 40 mg tabl et atorvastatin 40 mg tablet completed atorvastatin 40 MG Oral Tablet [place] ([facility]) Phosphorous Supplement 280 mg-160 mg-250 mg oral powder packet MIX 1 PACKET AND DRINK THREE TIMES DAILY 835047 completed Phosphorous Supplement 280 mg-160 mg-250 mg oral powder packet [facility] ([facility]) Prednisone 20 MG Oral Tablet prednisone 20 mg tablet T K 2 TS PO D FOR 4 DAYS prednisone 20 mg tablet TK 2 TS PO D FOR 4 DAYS completed prednisone 20 MG Oral Tablet [facility] ([facility]) Ergocalciferol 25813 UNT Oral Capsule er gocalciferol (vitamin D2) 1,250 mcg (50,000 unit) capsule TK 1 C PO 1 TIME A WK FOR 8 WKS ONLY ergocalciferol (vitamin D2) 1,250 mcg (50,000 unit) capsule TK 1 C PO 1 TIME A WK FOR 8 WKS ONLY completed ergocalciferol 1 .25 MG Oral Capsule [facility] ([facility]) Cholecalciferol 93586 UNT Oral Capsule c holecalciferol (vitamin D3) 1,250 mcg (50,000 unit) capsule TK 1 C PO ONCE PER WEEK cholecalciferol (vitamin D3) 1,250 mcg (50,000 unit) capsule TK 1 C PO ONCE PER WEEK completed cholecalciferol 1.25 MG Oral Capsule [facility] ([facility]) atorvastatin 20 MG Oral Tablet atorvastatin 20 mg tabl et atorvastatin 20 mg tablet completed atorvastatin 20 MG Oral Tablet [facility] ([facility]) Lisinopril 10 MG Oral Tablet lisinopril 10 mg tablet T K 1 T PO D lisinopril 10 mg tablet TK 1 T PO D completed lisinopril 10 MG Oral Tablet [facility] ([facility]) Ibuprofen 600 MG Oral Tablet ibuprofen 600 mg tablet ibuprofen 6 00 mg tablet completed ibuprofen 600 MG Oral Tablet [facility] ([facility]) atorvastatin 20 MG Oral Tablet atorvastatin 20 mg tabl et atorvastatin 20 mg tablet completed atorvastatin 20 MG Oral Tablet [facility] ([facility]) Prednisone 20 MG Oral Tablet prednisone 20 mg tablet T K 2 TS PO D FOR 4 DAYS prednisone 20 mg tablet TK 2 TS PO D FOR 4 DAYS completed prednisone 20 MG Oral Tablet [facility] ([facility]) Lisinopril 10 MG Oral Tablet lisinopril 10 mg tablet T K 1 T PO D lisinopril 10 mg tablet TK 1 T PO D completed lisinopril 10 MG Oral Tablet [facility] ([facility]) Cholecalciferol 2000 UNT Oral Tablet cho lecalciferol (vitamin D3) 50 mcg (2,000 unit) tablet TK ONE T PO D cholecalciferol (vitamin D3) 50 mcg (2,0 00 unit) tablet TK ONE T PO D completed cholecalciferol 0.05 MG Oral Tablet [facility] ([facility]) atorvastatin 40 MG Oral Tablet atorvastatin 40 mg tabl et atorvastatin 40 mg tablet completed atorvastatin 40 MG Oral Tablet [facility] ([facility]) atorvastatin 20 MG Oral Tablet atorvastatin 20 mg tabl et atorvastatin 20 mg tablet completed atorvastatin 20 MG Oral Tablet [facility] ([facility]) Baqsimi 3 mg/actuation nasal spray SPRAY 3MG IN ONE NOSTRIL TO TREAT SEVERE HYPOGLYCEMIA 642772 completed gl ucagon 3 MG Nasal Powder [Baqsimi] [facility]NDI ([facility]) Ergocalciferol 67230 UNT Oral Capsule er gocalciferol (vitamin D2) 1,250 mcg (50,000 unit) capsule TK 1 C PO 1 TIME A WK FOR 8 WKS ONLY ergocalciferol (vitamin D2) 1,250 mcg (50,000 unit) capsule TK 1 C PO 1 TIME A WK FOR 8 WKS ONLY completed ergocalciferol 1 .25 MG Oral Capsule [facility] ([facility]) Baqsimi 3 mg/actuation nasal spray SPRAY 3MG IN ONE NOSTRIL TO TREAT SEVERE HYPOGLYCEMIA 560936 completed gl ucagon 3 MG Nasal Powder [Baqsimi] [facility] ([facility]) Lisinopril 5 MG Oral Tablet lisinopril 5 mg tablet TK 1 T PO QD lisinopril 5 mg tablet TK 1 T PO QD completed li sinopril 5 MG Oral Tablet [facility] ([facility]) Insurance Providers Payer name Policy type / Coverage type Policy ID Covered libertarian ID Covered libertarian's relationship to laird Policy Laird Plan Information [employer] PLUS [id number] SP [id number] [employer] PLUS [id number] SP [id number] [employer] WORKER COMP [id number] SP [id number] [place] P[place] 302/307 [id number] SP [id number] [employer]ENMedisas WORKER COMP [id number] SP [id number] BCBS GENERIC C [id number] Self [id number] [id number] BCBS GENERIC C [id number] Self MCQM [id number] EXCELLUS BCBS [id number] Sunitha MCQ [id number] Excellus BCYO P [id number] S TRISTON [id number] Excellus BCYO S [id number] S TRISTNO [id number] BCBS GENERIC C [id number] Self [id number] [facility] U [id number] Self [id number] [facility] P [id number] S [id number] [employer] 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 [id number] SP [id number] SELF PAY ONLY [id number] SP [id number] SELF PAY ONLY [id number] SP [id number] SELF PAY ONLY - [id number] SP [place] 121/621 [id number] SP [id number] BCBS/Blue Card Commercial [id number] Self [id number] BCBS/Blue Card Commercial [id number] Self [id number] EXCELLUS BCBS B [id number] S [id number] [id number] [id number] Self [id number] [employer] [id number] Self [id number] [place] [id number] SP [id number] [employer] [id number] Self Excellus BCBS Health Maintenance Organization (HMO) [id number] Self BS [facility] Commercial [id number] Self [place] [id number] SP [id number] [place] 302/307 [id number] SP [id number] SELF PAY UNAVAILABLE SP UNAVAILA BLE [place]BS [place] [id number] UNAVAILABLE SP UNAVAILABLE [employer] [place] [id number] SP [id number] MEDICAID [id number] SP [id number] HMO BLUE [id number] SP [id number] HMO BLUE [id number] SP [id number] HMO BLUE [id number] SP [id number] COMPSYCH [id number] SP [id number] [place] [id number] SP [id number] CHINO [id number] SP [id number] CHINO [facility] [place] O [id number] S [id number] ANSI-Not a Secondary Insurance [id number] [place] [id number] SP [id number] [address]BS [id number] SP [id number] [facility] [id number] SP [id number] BCBS [id number] SP [id number] BCBS/Blue Card Commercial [id number] Self [id number] ANSI-Commercial [id number] BCBS/Blue Card Commercial [id number] Self [id number] BCBS/Blue Card Commercial [id number] Self [id number] BCBS/Blue Card Commercial [id number] Self [id number] BCBS [facility] [id number] S [facility] [id number] BCBS [id number] SP [id number] Problems, Conditions, and Diagnoses Code Display Name Description Problem Type Effective Dates Data Source(s) 207137431 Anemia Anemia Problem 04/22/2021 12:00:00 AM GIACOMO HANNA ([facility]) [id number] Anemia Anemia Problem 04/22/2021 12:00:00 AM ED T CYNDI ([facility]) [id number] Anemia Anemia Problem 04/22/2021 12:00:00 AM ED T [facility] ([facility]) [id number] 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 12:00:00 AM EST CYNDI ([facility]) 89715677 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 12:00:00 AM EST [facility] ([facility]) 83646856 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 12:00:00 AM EST [facility] ([facility]) 75380454 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 12:00:00 AM EST [facility] ([facility]) 67688976 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 12:00:00 AM EST [facility] ([facility]) 63049407 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 12:00:00 AM EST [facility] ([facility]) 92408897 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 12:00:00 AM EST [facility] ([facility]) Surgeries/Procedures No Information Results ID Date Data Source [id number] 05/28/2021 09:11:04 AM EDT [facility] Name Value Range Interpretation Code Description Data Claribel rce(s) Supporting Document(s) Progress Note [facility] TXRXVs7uXqNQMzMn04/YAXzcEUFsd8KpWLjoSOc9VRcuIJZuI3XbUVO1zB8aJZY8QYdSHoZpCnFfCoG6 [facility] [file] AgICAgICAgICAgICAgICAgICAgICAgICAgICAgICAgICAgICAgICAgICAgICAgICAgICAgICAgICAgIC AgICAgICAgICAgICAgICAgICAgICAgICAgICAgDQogICAgICAgICAgICAgICAgICAgICAgICAgICAgIC AgICAgICAgICAgICAgICAgICAgICAgICAgICAgICAg ICAgICAgICAgICAgICAgICAgICAgICAgICAgICAgICAgICAgICAgDQogICAgICAgICAgICAgICAgICAg ICAgICAgICAgICAgICAgICAgICAgICAgICAgICAgICAgICAgICAgICAgICAgICAgICAgICAgICAgICAg ICAgICAgICAgICAgICAgICAgICAgDQogICAgICAgIC AgICAgICAgICAgICAgICAgICAgICAgICAgICAgICAgICAgICAgICAgICAgICAgICAgICAgICAgICAgIC AgICAgICAgICAgICAgICAgICAgICAgICAgICAgICAgDQogICAgICAgICAgICAgICAgICAgICAgICAgIC AgICAgICAgICAgICAgICAgICAgICAgICAgICAgICAg ICAgICAgICAgICAgICAgICAgICAgICAgICAgICAgICAgICAgICAgICAgDQogICAgICAgICAgICAgICAg ICAgICAgICAgICAgICAgICAgICAgICAgICAgICAgICAgICAgICAgICAgICAgICAgICAgICAgICAgICAg ICAgICAgICAgICAgICAgICAgICAgICAgDQogICAgIC AgICAgICAgICAgICAgICAgICAgICAgICAgICAgICAgICAgICAgICAgICAgICAgICAgICAgICAgICAgIC AgICAgICAgICAgICAgICAgICAgICAgICAgICAgICAgICAgDQogICAgICAgICAgICAgICAgICAgICAgIC AgICAgICAgICAgICAgICAgICAgICAgICAgICAgICAg ICAgICAgICAgICAgICAgICAgICAgICAgICAgICAgICAgICAgICAgICAgICAgDQogICAgICAgICAgICAg ICAgICAgICAgICAgICAgICAgICAgICAgICAgICAgICAgICAgICAgICAgICAgICAgICAgICAgICAgICAg ICAgICAgICAgICAgICAgICAgICAgICAgICAgDQogIC AgICAgICAgICAgICAgICAgICAgICAgICAgICAgICAgICAgICAgICAgICAgICAgICAgICAgICAgICAgIC BcOMDwEHNeQSIhRJFdUIAlIDGyJHUdVCXpFCHoYRJoSBAgRRBoCBj3K3rfCWXoYXZgUT1jZJc5Zs1+DQ oTEzRaJAN6eqDbiQ0SXU8ho7SiHTfnNBHgr5YjHIc7 ZW4QVYGpSCwvEM5PRZmhgi0XVXOxXGAvhAJDv4lsXjUeIYL0ARWkKgeuYQ9JMKMvH7zxqfNqIVYnNWAT OHzxGKIKQKgmQVIMRQZtETBvGrZcRuXgANEuFEYjGSQOLOU8UNWzByWkOMsbCM9Jj9AieKL0DCw+Pg0K HB1bh8ToPAstRFZoOP6gqu3RYHpXJoGrI4QmfiK4CR ZgGGToEx8DQKToQKSevYTeToLaFJBNYqWyV9QpeS96NYDMAm3+YOvkzoYsUdkXIsUeGHCld3TwOPj7SS 4JQXDyXKq8nCNgVOJkN7Gyh4BoZc17JRSbYcylJENmxADytATmWdYBXIHolD2scF7dCVLUGFQkdAV3Px B4YaKySiFsDNk7WbTyKU6vDZasCC4LCUA8WKzcWJIj RYPcG9cJHrNhTKEfTbWgoGrnWY7FEqCmG8HgnfPlvWOkWOGqKVPIVx6+MZaciqUvRdqQJpOjCREbo2Hq JMk6RK4GNJJmYDvnNH7ESUDflG2dJBqqQD7IBuOxJKGqKFYMJrVoN52bvMAdTKh2S2CzPoTmFAAcNtmf ZXMgPDwvTmFtZXMgWyBdDQogID4+ID4+GOpfFA8XLO xszqDyDTDbXi2CZPXkKRRcNV8sXCZvHZSbJ5P2fLucZAEUMwDfX2ejaqrnSR2zWPRrY622yDfbslYjLK CgSTCkCi4DYAWuZSN8OZTauDZqSeYfQBWPTSerTS4QuMBgAOP9vZ5oLTyoSWPiHDRvG5hPZhUylXzuUG 51bGwgbnVsbCBdDQo+Td8JRJ8kq0OgCIw3usFfKAna GOV1KKleEGTxTIYtZEEoYRZ6FFL4VFMDQuUrUYNrXEYlDFonZUCoMXRyrz8TUOHyYDIePkK5NZKwDWXm JLIiQXutUHUeJEC6PlyuRTXaIORbOQ7VNlDzFVUoYGUbBMymOXMtYVUfeh5SHRWxXCCbQXD8SfJnZVNz PBRhBEayIHTaYPH8TtHuHGCxUXPiDQ5OExMpNQSkMJ klIptvOSWoBSQtdp9AFDLuCFWoWIAxXsDxGPFpVSZgCZfiVHKjFQMqOeZ9BEDeIKGpZX1HOdAsDJKuBQ G1BmFfWBKwFQOwty8JTLXdYFUdUNX6NxPdEUXuQUNaMZqmLLOqXXU5StgwDNHaDFHxBY7KJiZdLYLbSW wxVUMcEULiRKVvmz5DDTNwFGEfJaJ5PARrHKBwNXOn FVrdRKGiWSFbPpUvFJTfPHOwIN5DOzYhJBKbMbT1RpbuMQDxLMYcuw8DHPSoXJZyEpE3ZLTmWLBiGGAh DCogPIJnMOZgPIkzFHGtETWvBE7XZcVkVCEnBiO7MEKiXSTcTPSlwu2UXIJaCJYnWvr4IsKxUHWqCWLk MEmsDONbGVGmHEQnYLPyISMnZE5ZTiFeAPZuQhH0XD vrKFWcCCZeos9QVLPnLRLkUIM5YPWjUARwRLSsCHfgABBeHRQ5Ple3QMPeARCyCR8OXkMpKWUlMnN9GD qdMHVpQHQlde9WIQUkDQOpEfLkIVKpXZJeWDRuVFanNKHwKIR2UwPhQOSeSERyYH9SIbXtMERvUbj1GE YcHWIqWATnmx2YOFLxGBNcEyWlVLElTNUdVRJbDLhn MGZrKXR5EIQyVTLmQZYnBU5FPpQuSWPbNzw5UIwcXJBlIAWjhl0WABYnJXYuONA9LFImQPVoPUYvSJjz DUAdUEX8QiC3MEQiVMJiRF0OMkHaGHnzTXWHIkv1RPtgX4z0AAHaLK3CB9Pmt5SyGjOeQUBIYOquAG3k iaFxWKCeIp7HA0nFLgiqMnCpEUS5APKnElU4UQMlVK AzTgDyKYI1JOMvFYJpXC7fLUW6SIC1PVV8KABkWbH4FTWbXMUzN1H0Dbt2MAX8LTEtWpVeYZ5QOd2CFr S7NGF9hCFsUt2WSet2GMwRXoRhFJ5TJEh= ID Date Data Source [id number] 05/28/2021 09:10:59 AM EDT [facility] Name Value Range Interpretation Code Description Data Claribel rce(s) Supporting Document(s) Progress Note [facility] VZQCJw0dQhMEGbHg43/SPHxoRUNby1AuAIyiHRm2EWskTTNkU8XhJIL8aO3wACN0LIwCTpArQiOoWwJ9 lbm [file] 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 [file] [id number]== ID Date Data Source [id number] 05/07/2021 08:53:00 AM EDT [facility]) Name Value Range Interpretation Code Description Data Claribel rce(s) Supporting Document(s) Hemoglobin A1c/Hemoglobin.total in Blood 8.7 %_of_total_HGB <5.7 Above high normal Hemoglobin a1C [facility] ([facility]) ID Date Data Source [id number] 05/07/2021 08:53:00 AM EDT [facility]) Name Value Range Interpretation Code Description Data Claribel rce(s) Supporting Document(s) Leukocytes [#/volume] in Blood by Automated count 5.2 thousand/uL 3 .8-10.8 White Blood Cell Count [facility] ([facility]) Erythrocytes [#/volume] in Blood by Automated count 3.84 million/uL 3.80-5.10 Red Blood Cell Count [facility] ([facility]) Hemoglobin [Mass/volume] in Blood 11.3 g/dL 11.7-15.5 Below l ow normal Hemoglobin [facility] ([facility]) Hematocrit [Volume Fraction] of Blood by Automated count 33.0 % 35.0-45.0 Below low normal Hematocrit [facility] ([facility]) Erythrocyte mean corpuscular volume [Entitic volume] by Auto mated count 85.9 fL 80.0-100.0 Mcv [facility] ([facility]) Erythrocyte mean corpuscular hemoglobin [Entitic mass] by Automated count 29.4 pg 27.0-33.0 Mch [facility] ([facility]) Erythrocyte mean corpuscular hemoglobin concentration [Mass/volume] by Automated count 34.2 g/dL 32.0-36.0 Mchc CYNDI ([facility]) Erythrocyte distribution width [Ratio] by Automated count 12.7 % 11.0-15.0 Rdw CY[facility] ([facility]) Platelets [#/volume] in Blood by Automated count 262 thousand/uL 14 0-400 Platelet Count [facility] ([facility]) Platelet mean volume [Entitic volume] in Blood by Jonn-Lara 10.0 f L 7.5-12.5 Mpv [facility] ([facility]) Neutrophils [#/volume] in Blood by Automated count 3052 cells/uL 15 00-7800 Absolute Neutrophils [facility] ([facility]) Lymphocytes [#/volume] in Blood by Automated count 1758 cells/uL 85 0-3900 Absolute Lymphocytes [facility] ([facility]) Monocytes [#/volume] in Blood by Automated count 328 cells/uL 200-9 50 Absolute Monocytes [facility] ([facility]) Eosinophils [#/volume] in Blood by Automated count 21 cells/uL 15- 500 Absolute Eosinophils [facility] ([facility]) Basophils [#/volume] in Blood by Automated count 42 cells/uL 0-200 Absolute Basophils [facility] ([facility]) Neutrophils/100 leukocytes in Blood by Automated count 58.7 % 38-80 Neutrophils [facility] ([facility]) Lymphocytes/100 leukocytes in Blood by Automated count 33.8 % 15-49 Lymphocytes [facility] ([facility]) Monocytes/100 leukocytes in Blood by Automated count 6.3 % 0-13 Monocytes [facility] ([facility]) Eosinophils/100 leukocytes in Blood by Automated count 0.4 % 0-8 Eosinophils [facility] ([facility]) Basophils/100 leukocytes in Blood by Automated count 0.8 % 0-2 Basophils [facility] ([facility]) ID Date Data Source [id number] 05/07/2021 08:53:00 AM EDT [place] ([facility]) Name Value Range Interpretation Code Description Data Claribel rce(s) Supporting Document(s) Glucose [Mass/volume] in Serum or Plasma 153 mg/dL 65-99 Above high normal Glucose [place] ([facility]) Urea nitrogen [Mass/volume] in Serum or Plasma 18 mg/dL 7-25 Urea Nitrogen (BUN) [place] ([facility]) Creatinine [Mass/volume] in Serum or Plasma 0.88 mg/dL 0.50-1.10 Creatinine [place] ([facility]) Glomerular filtration rate/1.73 sq M.pre dicted among non-blacks [Volume Rate/Area] in Serum, Plasma or Blood by Creatinine-based formula (CKD-EPI) 86 mL/min/1.73m2 > or = 60 eGFR Non-afr. Syrian [facility] ([facility]) Glomerular filtration rate/1.73 sq M.pre dicted among blacks [Volume Rate/Area] in Serum, Plasma or Blood by Creatinine-based formula (CKD-EPI) 100 mL/min/1.73m2 > or = 60 eGFR [facility] ([facility]) Urea nitrogen/Creatinine [Mass Ratio] in Serum or Plasma not applic able 6-22 BUN/creatinine Ratio [place] ([facility]) Sodium [Moles/volume] in Serum or Plasma 139 mmol/L 135-146 Sodium [place] ([facility]) Potassium [Moles/volume] in Serum or Plasma 3.9 mmol/L 3.5-5.3 Potassium [facility] ([facility]) Chloride [Moles/volume] in Serum or Plasma 105 mmol/L 98-110 Chloride [place] ([facility]) Carbon dioxide, total [Moles/volume] in Serum or Plasma 28 mmol/L 20-32 Carbon Dioxide [facility]) Calcium [Mass/volume] in Serum or Plasma 9.4 mg/dL 8.6-10.2 Calcium [place] ([facility]) Protein [Mass/volume] in Serum or Plasma 6.4 g/dL 6.1-8.1 Protein, Total [facility] ([facility]) Albumin [Mass/volume] in Serum or Plasma 3.7 g/dL 3.6-5.1 Albumin [place] ([facility]) Globulin [Mass/volume] in Serum by calculation 2.7 g/dL_(calc) 1.9- 3.7 Globulin [facility] ([facility]) Albumin/Globulin [Mass Ratio] in Serum or Plasma 1.4 (calc) 1.0-2 .5 Albumin/globulin Ratio [place] ([facility]) Bilirubin.total [Mass/volume] in Serum or Plasma 0.3 mg/dL 0.2-1 .2 Bilirubin, Total [place] ([facility]) Alkaline phosphatase [Enzymatic activity/volume] in Serum or Plasma 52 U/L 31-125 Alkaline Phosphatase [facility] ([facility]) Aspartate aminotransferase [Enzymatic activity/volume] in Serum or Plasma 13 U/L 10-30 Ast [place] ([facility]) Alanine aminotransferase [Enzymatic activity/volume] in Seru m or Plasma 10 U/L 6-29 Alt [facility] ([facility]) ID Date Data Source [id number] 05/07/2021 08:53:00 AM EDT [place] ([facility]) Name Value Range Interpretation Code Description Data Claribel rce(s) Supporting Document(s) Triiodothyronine resin uptake (T3RU) in Serum or Plasma 30 % 22 -35 T3 Uptake [place] ([facility]) Thyroxine (T4) [Mass/volume] in Serum or Plasma 7.6 mcg/dL 5.1-11 .9 T4 (Thyroxine), Total [place] ([facility]) Thyroxine (T4) free index in Serum or Plasma by calculation 1.4-3.8 Free T4 Index (T7) [place] ([facility]) Thyrotropin [Units/volume] in Serum or Plasma 2.45 mIU/L Tsh [facility]) ID Date Data Source [id number] 05/07/2021 08:53:00 AM EDT [facility] ([facility]) Name Value Range Interpretation Code Description Data Claribel rce(s) Supporting Document(s) Triglyceride [Mass/volume] in Serum or Plasma 111 mg/dL <150 Triglycerides [facility] ([facility]) Cholesterol [Mass/volume] in Serum or Plasma 198 mg/dL <200 Cholesterol, Total [facility] ([facility]) Cholesterol in HDL [Mass/volume] in Serum or Plasma 48 mg/dL > or = 50 Below low normal HDL Cholesterol [facility] ([facility]) Cholesterol in LDL [Mass/volume] in Serum or Plasma by calculation 128 mg/dL_(calc) Above high normal LDL-cholesterol [facility] ([facility]) Cholesterol.total/Cholesterol in HDL [Mass Ratio] in Serum o r Plasma 4.1 (calc) <5.0 Chol/hdlc Ratio [facility] ([facility]) Cholesterol non HDL [Mass/volume] in Serum or Plasma 150 mg/dL_( calc) <130 Above high normal Non HDL Cholesterol [facility] ([facility]) ID Date Data Source [id number] 05/07/2021 08:53:00 AM EDT [facility] ([facility]) Name Value Range Interpretation Code Description Data Claribel rce(s) Supporting Document(s) Iron [Mass/volume] in Serum or Plasma 40 mcg/dL 40-190 Iron, Total [facility] ([facility]) Iron binding capacity [Mass/volume] in Serum or Plasma 311 m cg/dL_(calc) 250-450 Iron Binding Capacity [facility] ([facility]) Iron saturation [Mass Fraction] in Serum or Plasma 13 %_(calc) 16-45 Below low normal % Saturation [facility] ([facility]) Ferritin [Mass/volume] in Serum or Plasma 48 NG/mL 16-154 Ferritin [facility] ([facility]) ID Date Data Source [id number] 04/02/2021 08:10:00 AM [facility] Name Value Range Interpretation Code Description Data Claribel rce(s) Supporting Document(s) bedside glucose 78 mg/dL 70-105 Bedside Glucose ATHJuan Carlos MCKEON ([facility]) ID Date Data Source [id number] 04/02/2021 08:10:00 AM EDT [facility]) Name Value Range Interpretation Code Description Data Claribel rce(s) Supporting Document(s) bedside glucose 78 mg/dL 70-105 Bedside Glucose ATHJuan Carlos MCKEON ([facility]) ID Date Data Source [id number] 04/02/2021 08:10:00 AM EDT [facility] ([facility]) Name Value Range Interpretation Code Description Data Claribel rce(s) Supporting Document(s) bedside glucose 78 mg/dL 70-105 Bedside Glucose ATHJuan Carlos MCKEON ([facility]) ID Date Data Source [id number] 04/02/2021 05:24:00 AM EDT [place] ([facility]) Name Value Range Interpretation Code Description Data Claribel rce(s) Supporting Document(s) glucose, fasting 50 mg/dL 70-100 Below low normal Glucose, Fast ing [place] ([facility]) blood urea nitrogen 9 mg/dL 7-18 Blood Urea Nitro gen [place] ([facility]) creatinine for GFR 0.62 mg/dL 0.55-1.30 Creatinine for GF R [place] ([facility]) glomerular filtration rate > 60.0 >60 Glomerula r Filtration Rate [place] ([facility]) sodium level 143 mEq/L 136-145 Sodium Level [place] ([facility]) potassium serum 3.2 mEq/L 3.5-5.1 Below low normal Potassium Seru m [place] ([facility]) chloride level 112 mEq/L 98-107 Above high normal Chloride Level [place] ([facility]) carbon dioxide level 28 mEq/L 21-32 Carbon Dioxide Level [place] ([facility]) anion gap 3 mEq/L 8-16 Below low normal Anion Gap [place] ( [facility]) calcium level 8.5 mg/dL 8.5-10.1 Calcium Level [place] ( [facility]) ID Date Data Source [id number] 04/02/2021 05:24:00 AM EDT [place] ([facility]) Name Value Range Interpretation Code Description Data Claribel rce(s) Supporting Document(s) white blood count 3.1 10 4.0-10.0 Below low normal White Blood Count [place] ([facility]) red blood count 3.63 10 4.00-5.40 Below low normal Red Blood Coun t [place] ([facility]) hemoglobin 10.8 g/dL 12.0-15.5 Below low normal Hemoglobin [place] ( [facility]) hematocrit 31.8 % 36.0-47.0 Below low normal Hematocrit [place] ( [facility]) mean corpuscular volume 87.6 fL 80.0-96.0 Mean Corpusc ular Volume [place] ([facility]) mean corpuscular hemoglobin 29.8 pg 27.0-33.0 Mean Cor puscular Hemoglobin [place] ([facility]) mean corpuscular HGB conc 34.0 g/dL 32.0-36.5 Mean Corpu scular HGB Conc [place] ([facility]) red cell distribution width 11.9 % 11.5-14.5 Red Cell Distribution Width [place] ([facility]) platelet count, automated 196 10 150-450 Platelet C ount, Automated [place] ([facility]) nucleated red blood cell % 0.0 % 0-0 Nucleated Red Blood Cell % [place] ([facility]) ID Date Data Source [id number] 04/02/2021 05:24:00 AM EDT [facility]) Name Value Range Interpretation Code Description Data Claribel rce(s) Supporting Document(s) glucose, fasting 50 mg/dL 70-100 Below low normal Glucose, Fast ing [place] ([facility]) blood urea nitrogen 9 mg/dL 7-18 Blood Urea Nitro gen [place] ([facility]) creatinine for GFR 0.62 mg/dL 0.55-1.30 Creatinine for GF R [facility] ([facility]) glomerular filtration rate > 60.0 >60 Glomerula r Filtration Rate [facility] ([facility]) sodium level 143 mEq/L 136-145 Sodium Level [facility] (No [facility]) potassium serum 3.2 mEq/L 3.5-5.1 Below low normal Potassium Seru m [facility] ([facility]) chloride level 112 mEq/L 98-107 Above high normal Chloride Level [place] ([facility]) carbon dioxide level 28 mEq/L 21-32 Carbon Dioxide Level [place] ([facility]) anion gap 3 mEq/L 8-16 Below low normal Anion Gap [place] ( [facility]) calcium level 8.5 mg/dL 8.5-10.1 Calcium Level [place] ( [facility]) ID Date Data Source [id number] 04/02/2021 05:24:00 AM EDT [facility]) Name Value Range Interpretation Code Description Data Claribel rce(s) Supporting Document(s) white blood count 3.1 10 4.0-10.0 Below low normal White Blood Count [place] ([facility]) red blood count 3.63 10 4.00-5.40 Below low normal Red Blood Coun t [facility]) hemoglobin 10.8 g/dL 12.0-15.5 Below low normal Hemoglobin [facility]) hematocrit 31.8 % 36.0-47.0 Below low normal Hematocrit [place] ( [facility]) mean corpuscular volume 87.6 fL 80.0-96.0 Mean Corpusc ular Volume [place] ([facility]) mean corpuscular hemoglobin 29.8 pg 27.0-33.0 Mean Cor puscular Hemoglobin [place] ([facility]) mean corpuscular HGB conc 34.0 g/dL 32.0-36.5 Mean Corpu scular HGB Conc [place] ([facility]) red cell distribution width 11.9 % 11.5-14.5 Red Cell Distribution Width [place] ([facility]) platelet count, automated 196 10 150-450 Platelet C ount, Automated [place] ([facility]) nucleated red blood cell % 0.0 % 0-0 Nucleated Red Blood Cell % [place] ([facility]) ID Date Data Source [id number] 04/02/2021 05:24:00 AM EDT [place] ([facility]) Name Value Range Interpretation Code Description Data Claribel rce(s) Supporting Document(s) glucose, fasting 50 mg/dL 70-100 Below low normal Glucose, Fast ing [place] ([facility]) blood urea nitrogen 9 mg/dL 7-18 Blood Urea Nitro gen [place] ([facility]) creatinine for GFR 0.62 mg/dL 0.55-1.30 Creatinine for GF R [place] ([facility]) glomerular filtration rate > 60.0 >60 Glomerula r Filtration Rate [place] ([facility]) sodium level 143 mEq/L 136-145 Sodium Level [place] ([facility]) potassium serum 3.2 mEq/L 3.5-5.1 Below low normal Potassium Seru m [place] ([facility]) chloride level 112 mEq/L 98-107 Above high normal Chloride Level [place] ([facility]) carbon dioxide level 28 mEq/L 21-32 Carbon Dioxide Level [facility]) anion gap 3 mEq/L 8-16 Below low normal Anion Gap [place] ( [facility]) calcium level 8.5 mg/dL 8.5-10.1 Calcium Level [place] ( [facility]) ID Date Data Source [id number] 04/02/2021 05:24:00 AM EDT [place] ([facility]) Name Value Range Interpretation Code Description Data Claribel rce(s) Supporting Document(s) white blood count 3.1 10 4.0-10.0 Below low normal White Blood Count [place] ([facility]) red blood count 3.63 10 4.00-5.40 Below low normal Red Blood Coun t [place] ([facility]) hemoglobin 10.8 g/dL 12.0-15.5 Below low normal Hemoglobin [place] ( [facility]) hematocrit 31.8 % 36.0-47.0 Below low normal Hematocrit [facility] ( [facility]) mean corpuscular volume 87.6 fL 80.0-96.0 Mean Corpusc ular Volume [place] ([facility]) mean corpuscular hemoglobin 29.8 pg 27.0-33.0 Mean Cor puscular Hemoglobin [facility] ([facility]) mean corpuscular HGB conc 34.0 g/dL 32.0-36.5 Mean Corpu scular HGB Conc [facility] ([facility]) red cell distribution width 11.9 % 11.5-14.5 Red Cell Distribution Width [facility] ([facility]) platelet count, automated 196 10 150-450 Platelet C ount, Automated [facility] ([facility]) nucleated red blood cell % 0.0 % 0-0 Nucleated Red Blood Cell % [place] ([facility]) ID Date Data Source [id number] 04/01/2021 08:39:00 PM EDT [facility]) Name Value Range Interpretation Code Description Data Claribel rce(s) Supporting Document(s) bedside glucose 155 mg/dL 70-105 Above high normal Bedside Gluco se [facility]) ID Date Data Source [id number] 04/01/2021 08:39:00 PM EDT [facility]) Name Value Range Interpretation Code Description Data Claribel rce(s) Supporting Document(s) bedside glucose 155 mg/dL 70-105 Above high normal Bedside Gluco se [facility]) ID Date Data Source [id number] 04/01/2021 08:39:00 PM EDT [facility]) Name Value Range Interpretation Code Description Data Claribel rce(s) Supporting Document(s) bedside glucose 155 mg/dL 70-105 Above high normal Bedside Gluco se [facility]) ID Date Data Source [id number] 04/01/2021 04:57:00 [facility] Name Value Range Interpretation Code Description Data Claribel rce(s) Supporting Document(s) bedside glucose 91 mg/dL 70-105 Bedside Glucose ATHJuan Carlos MCKEON ([facility]) ID Date Data Source [id number] 04/01/2021 04:57:00 PM EDT [facility] ([facility]) Name Value Range Interpretation Code Description Data Claribel rce(s) Supporting Document(s) bedside glucose 91 mg/dL 70-105 Bedside Glucose ATHE LINDA ([facility]) ID Date Data Source [id number] 04/01/2021 04:57:00 PM EDT [facility]) Name Value Range Interpretation Code Description Data Claribel rce(s) Supporting Document(s) bedside glucose 91 mg/dL 70-105 Bedside Glucose ATHE LINDA ([facility]) ID Date Data Source [id number] 04/01/2021 11:45:00 AM EDT [facility]) Name Value Range Interpretation Code Description Data Claribel rce(s) Supporting Document(s) bedside glucose 171 mg/dL 70-105 Above high normal Bedside Gluco se [facility]) ID Date Data Source [id number] 04/01/2021 11:45:00 AM EDT [facility]) Name Value Range Interpretation Code Description Data Claribel rce(s) Supporting Document(s) bedside glucose 171 mg/dL 70-105 Above high normal Bedside Gluco se [facility]) ID Date Data Source [id number] 04/01/2021 11:45:00 AM EDT [facility]) Name Value Range Interpretation Code Description Data Claribel rce(s) Supporting Document(s) bedside glucose 171 mg/dL 70-105 Above high normal Bedside Gluco se [facility] ([facility]) ID Date Data Source [id number] 04/01/2021 06:09:00 AM EDT [place] ([facility]) Name Value Range Interpretation Code Description Data Claribel rce(s) Supporting Document(s) glucose, fasting 71 mg/dL 70-100 Glucose, Fasting AT [place] ([facility]) blood urea nitrogen 9 mg/dL 7-18 Blood Urea Nitro gen [place] ([facility]) creatinine for GFR 0.74 mg/dL 0.55-1.30 Creatinine for GF R [place] ([facility]) glomerular filtration rate > 60.0 >60 Glomerula r Filtration Rate [facility] ([facility]) sodium level 146 mEq/L 136-145 Above high normal Sodium Level ATH NIKOLAS ([facility]) potassium serum 3.6 mEq/L 3.5-5.1 Potassium Serum ATHE NA ([facility]) chloride level 115 mEq/L 98-107 Above high normal Chloride Level [facility] ([facility]) carbon dioxide level 26 mEq/L 21-32 Carbon Dioxide Level [place] ([facility]) anion gap 5 mEq/L 8-16 Below low normal Anion Gap [facility] ( [facility]) calcium level 9.6 mg/dL 8.5-10.1 Calcium Level [place] ( [facility]) ID Date Data Source [id number] 04/01/2021 06:09:00 AM EDT [place] ([facility]) Name Value Range Interpretation Code Description Data Claribel rce(s) Supporting Document(s) white blood count 4.1 10 4.0-10.0 White Blood Count [facility] ([facility]) red blood count 3.92 10 4.00-5.40 Below low normal Red Blood Coun t [place] ([facility]) hemoglobin 11.5 g/dL 12.0-15.5 Below low normal Hemoglobin [place] ( [facility]) hematocrit 34.3 % 36.0-47.0 Below low normal Hematocrit [facility] ( [facility]) mean corpuscular volume 87.5 fL 80.0-96.0 Mean Corpusc ular Volume [place] ([facility]) mean corpuscular hemoglobin 29.3 pg 27.0-33.0 Mean Cor puscular Hemoglobin [facility] ([facility]) mean corpuscular HGB conc 33.5 g/dL 32.0-36.5 Mean Corpu scular HGB Conc [place] ([facility]) red cell distribution width 12.2 % 11.5-14.5 Red Cell Distribution Width [facility] ([facility]) platelet count, automated 205 10 150-450 Platelet C ount, Automated [place] ([facility]) nucleated red blood cell % 0.0 % 0-0 Nucleated Red Blood Cell % [place] ([facility]) ID Date Data Source [id number] 04/01/2021 06:09:00 AM EDT [place] ([facility]) Name Value Range Interpretation Code Description Data Claribel rce(s) Supporting Document(s) glucose, fasting 71 mg/dL 70-100 Glucose, Fasting AT [facility]) blood urea nitrogen 9 mg/dL 7-18 Blood Urea Nitro gen [place] ([facility]) creatinine for GFR 0.74 mg/dL 0.55-1.30 Creatinine for GF R [place] ([facility]) glomerular filtration rate > 60.0 >60 Glomerula r Filtration Rate [facility] ([facility]) sodium level 146 mEq/L 136-145 Above high normal Sodium Level ATH NIKOLAS ([facility]) potassium serum 3.6 mEq/L 3.5-5.1 Potassium Serum ATH NA ([facility]) chloride level 115 mEq/L 98-107 Above high normal Chloride Level [facility] ([facility]) carbon dioxide level 26 mEq/L 21-32 Carbon Dioxide Level [place] ([facility]) anion gap 5 mEq/L 8-16 Below low normal Anion Gap [place] ( [facility]) calcium level 9.6 mg/dL 8.5-10.1 Calcium Level [place] ( [facility]) ID Date Data Source [id number] 04/01/2021 06:09:00 AM EDT [place] ([facility]) Name Value Range Interpretation Code Description Data Claribel rce(s) Supporting Document(s) white blood count 4.1 10 4.0-10.0 White Blood Count [place] ([facility]) red blood count 3.92 10 4.00-5.40 Below low normal Red Blood Coun t [place] ([facility]) hemoglobin 11.5 g/dL 12.0-15.5 Below low normal Hemoglobin [place] ( [facility]) hematocrit 34.3 % 36.0-47.0 Below low normal Hematocrit [place] ( [facility]) mean corpuscular volume 87.5 fL 80.0-96.0 Mean Corpusc ular Volume [place] ([facility]) mean corpuscular hemoglobin 29.3 pg 27.0-33.0 Mean Cor puscular Hemoglobin [place] ([facility]) mean corpuscular HGB conc 33.5 g/dL 32.0-36.5 Mean Corpu scular HGB Conc [place] ([facility]) red cell distribution width 12.2 % 11.5-14.5 Red Cell Distribution Width [place] ([facility]) platelet count, automated 205 10 150-450 Platelet C ount, Automated [place] ([facility]) nucleated red blood cell % 0.0 % 0-0 Nucleated Red Blood Cell % [place] ([facility]) ID Date Data Source [id number] 04/01/2021 06:09:00 AM EDT [place] ([facility]) Name Value Range Interpretation Code Description Data Claribel rce(s) Supporting Document(s) glucose, fasting 71 mg/dL 70-100 Glucose, Fasting AT [facility] ([facility]) blood urea nitrogen 9 mg/dL 7-18 Blood Urea Nitro gen [place] ([facility]) creatinine for GFR 0.74 mg/dL 0.55-1.30 Creatinine for GF R [facility] ([facility]) glomerular filtration rate > 60.0 >60 Glomerula r Filtration Rate [facility] ([facility]) sodium level 146 mEq/L 136-145 Above high normal Sodium Level ATH [facility] ([facility]) potassium serum 3.6 mEq/L 3.5-5.1 Potassium Serum [facility] NA ([facility]) chloride level 115 mEq/L 98-107 Above high normal Chloride Level [facility] ([facility]) carbon dioxide level 26 mEq/L 21-32 Carbon Dioxide Level [facility] ([facility]) anion gap 5 mEq/L 8-16 Below low normal Anion Gap [facility] ( [facility]) calcium level 9.6 mg/dL 8.5-10.1 Calcium Level [place] ( [facility]) ID Date Data Source [id number] 04/01/2021 06:09:00 AM EDT [place] ([facility]) Name Value Range Interpretation Code Description Data Claribel rce(s) Supporting Document(s) white blood count 4.1 10 4.0-10.0 White Blood Count [facility] ([facility]) red blood count 3.92 10 4.00-5.40 Below low normal Red Blood Coun t [facility] ([facility]) hemoglobin 11.5 g/dL 12.0-15.5 Below low normal Hemoglobin [facility] ( [facility]) hematocrit 34.3 % 36.0-47.0 Below low normal Hematocrit [facility] ( [facility]) mean corpuscular volume 87.5 fL 80.0-96.0 Mean Corpusc ular Volume [facility] ([facility]) mean corpuscular hemoglobin 29.3 pg 27.0-33.0 Mean Cor puscular Hemoglobin [facility] ([facility]) mean corpuscular HGB conc 33.5 g/dL 32.0-36.5 Mean Corpu scular HGB Conc [facility] ([facility]) red cell distribution width 12.2 % 11.5-14.5 Red Cell Distribution Width [facility] ([facility]) platelet count, automated 205 10 150-450 Platelet C ount, Automated [facility] ([facility]) nucleated red blood cell % 0.0 % 0-0 Nucleated Red Blood Cell % [place] ([facility]) ID Date Data Source [id number] 03/31/2021 08:42:00 PM EDT [facility]) Name Value Range Interpretation Code Description Data Claribel rce(s) Supporting Document(s) bedside glucose 182 mg/dL 70-105 Above high normal Bedside Gluco se [facility]) ID Date Data Source [id number] 03/31/2021 08:42:00 PM EDT [facility]) Name Value Range Interpretation Code Description Data Claribel rce(s) Supporting Document(s) bedside glucose 182 mg/dL 70-105 Above high normal Bedside Gluco se [facility]) ID Date Data Source [id number] 03/31/2021 08:42:00 PM EDT [facility]) Name Value Range Interpretation Code Description Data Claribel rce(s) Supporting Document(s) bedside glucose 182 mg/dL 70-105 Above high normal Bedside Gluco se [facility]) ID Date Data Source [id number] 03/31/2021 04:45:00 PM EDT [facility]) Name Value Range Interpretation Code Description Data Claribel rce(s) Supporting Document(s) bedside glucose 166 mg/dL 70-105 Above high normal Bedside Gluco se [facility]) ID Date Data Source [id number] 03/31/2021 04:45:00 PM EDT [facility]) Name Value Range Interpretation Code Description Data Claribel rce(s) Supporting Document(s) bedside glucose 166 mg/dL 70-105 Above high normal Bedside Gluco se [facility]) ID Date Data Source [id number] 03/31/2021 04:45:00 PM EDT [facility]) Name Value Range Interpretation Code Description Data Claribel rce(s) Supporting Document(s) bedside glucose 166 mg/dL 70-105 Above high normal Bedside Gluco se [place] ([facility]) ID Date Data Source [id number] 03/31/2021 11:55:00 AM EDT [facility]) Name Value Range Interpretation Code Description Data Claribel rce(s) Supporting Document(s) bedside glucose 256 mg/dL 70-105 Above high normal Bedside Gluco se [place] ([facility]) ID Date Data Source [id number] 03/31/2021 11:55:00 AM EDT [facility]) Name Value Range Interpretation Code Description Data Claribel rce(s) Supporting Document(s) bedside glucose 256 mg/dL 70-105 Above high normal Bedside Gluco se [place] ([facility]) ID Date Data Source [id number] 03/31/2021 11:55:00 AM EDT [facility]) Name Value Range Interpretation Code Description Data Claribel rce(s) Supporting Document(s) bedside glucose 256 mg/dL 70-105 Above high normal Bedside Gluco se [place] ([facility]) ID Date Data Source [id number] 03/31/2021 06:54:00 AM EDT [facility]) Name Value Range Interpretation Code Description Data Claribel rce(s) Supporting Document(s) bedside glucose 154 mg/dL 70-105 Above high normal Bedside Gluco se [facility]) ID Date Data Source [id number] 03/31/2021 06:54:00 AM EDT [facility]) Name Value Range Interpretation Code Description Data Claribel rce(s) Supporting Document(s) bedside glucose 154 mg/dL 70-105 Above high normal Bedside Gluco se [place] ([facility]) ID Date Data Source [id number] 03/31/2021 06:54:00 AM EDT [facility]) Name Value Range Interpretation Code Description Data Claribel rce(s) Supporting Document(s) bedside glucose 154 mg/dL 70-105 Above high normal Bedside Gluco se [facility]) ID Date Data Source [id number] 03/31/2021 06:04:00 AM EDT [facility]) Name Value Range Interpretation Code Description Data Claribel rce(s) Supporting Document(s) bedside glucose 139 mg/dL 70-105 Above high normal Bedside Gluco se [facility]) ID Date Data Source [id number] 03/31/2021 06:04:00 AM EDT [facility]) Name Value Range Interpretation Code Description Data Claribel rce(s) Supporting Document(s) bedside glucose 139 mg/dL 70-105 Above high normal Bedside Gluco se [facility]) ID Date Data Source [id number] 03/31/2021 06:04:00 AM EDT [facility]) Name Value Range Interpretation Code Description Data Claribel rce(s) Supporting Document(s) bedside glucose 139 mg/dL 70-105 Above high normal Bedside Gluco se [facility]) ID Date Data Source [id number] 03/31/2021 05:16:00 AM EDT [facility]) Name Value Range Interpretation Code Description Data Claribel rce(s) Supporting Document(s) bedside glucose 132 mg/dL 70-105 Above high normal Bedside Gluco se [place] ([facility]) ID Date Data Source [id number] 03/31/2021 05:16:00 AM EDT [facility]) Name Value Range Interpretation Code Description Data Claribel rce(s) Supporting Document(s) bedside glucose 132 mg/dL 70-105 Above high normal Bedside Gluco se [facility]) ID Date Data Source [id number] 03/31/2021 05:16:00 AM EDT [facility]) Name Value Range Interpretation Code Description Data Claribel rce(s) Supporting Document(s) bedside glucose 132 mg/dL 70-105 Above high normal Bedside Gluco se [place] ([facility]) ID Date Data Source [id number] 03/31/2021 05:10:00 AM EDT [facility]) Name Value Range Interpretation Code Description Data Claribel rce(s) Supporting Document(s) glucose, fasting 128 mg/dL 70-100 Above high normal Glucose, Fas ting [place] ([facility]) blood urea nitrogen 7 mg/dL 7-18 Blood Urea Nitro gen [place] ([facility]) creatinine for GFR 1.04 mg/dL 0.55-1.30 Creatinine for GF R [place] ([facility]) glomerular filtration rate > 60.0 >60 Glomerula r Filtration Rate [facility] ([facility]) sodium level 142 mEq/L 136-145 Sodium Level [facility] ([facility]) potassium serum 3.6 mEq/L 3.5-5.1 Potassium Serum ATH NA ([facility]) chloride level 118 mEq/L 98-107 Above high normal Chloride Level [place] ([facility]) carbon dioxide level 19 mEq/L 21-32 Below low normal Carbon Di oxide Level [place] ([facility]) anion gap 5 mEq/L 8-16 Below low normal Anion Gap [place] ( [facility]) calcium level 8.3 mg/dL 8.5-10.1 Below low normal Calcium Level AT [facility] ([facility]) ID Date Data Source [id number] 03/31/2021 05:10:00 AM EDT [place] ([facility]) Name Value Range Interpretation Code Description Data Claribel rce(s) Supporting Document(s) white blood count 5.1 10 4.0-10.0 White Blood Count [place] ([facility]) red blood count 3.65 10 4.00-5.40 Below low normal Red Blood Coun t [place] ([facility]) hemoglobin 10.9 g/dL 12.0-15.5 Below low normal Hemoglobin [place] ( [facility]) hematocrit 32.5 % 36.0-47.0 Below low normal Hematocrit [place] ( [facility]) mean corpuscular volume 89.0 fL 80.0-96.0 Mean Corpusc ular Volume [place] ([facility]) mean corpuscular hemoglobin 29.9 pg 27.0-33.0 Mean Cor puscular Hemoglobin [place] ([facility]) mean corpuscular HGB conc 33.5 g/dL 32.0-36.5 Mean Corpu scular HGB Conc [place] ([facility]) red cell distribution width 12.1 % 11.5-14.5 Red Cell Distribution Width [place] ([facility]) platelet count, automated 220 10 150-450 Platelet C ount, Automated [place] ([facility]) nucleated red blood cell % 0.0 % 0-0 Nucleated Red Blood Cell % [place] ([facility]) ID Date Data Source [id number] 03/31/2021 05:10:00 AM EDT [facility]) Name Value Range Interpretation Code Description Data Claribel rce(s) Supporting Document(s) glucose, fasting 128 mg/dL 70-100 Above high normal Glucose, Fas ting [place] ([facility]) blood urea nitrogen 7 mg/dL 7-18 Blood Urea Nitro gen [place] ([facility]) creatinine for GFR 1.04 mg/dL 0.55-1.30 Creatinine for GF R [facility] ([facility]) glomerular filtration rate > 60.0 >60 Glomerula r Filtration Rate [facility] ([facility]) sodium level 142 mEq/L 136-145 Sodium Level [facility] ([facility]) potassium serum 3.6 mEq/L 3.5-5.1 Potassium Serum [facility] ([facility]) chloride level 118 mEq/L 98-107 Above high normal Chloride Level [place] ([facility]) carbon dioxide level 19 mEq/L 21-32 Below low normal Carbon Di oxide Level [place] ([facility]) anion gap 5 mEq/L 8-16 Below low normal Anion Gap [place] ( [facility]) calcium level 8.3 mg/dL 8.5-10.1 Below low normal Calcium Level AT [facility]) ID Date Data Source [id number] 03/31/2021 05:10:00 AM EDT [place] ([facility]) Name Value Range Interpretation Code Description Data Claribel rce(s) Supporting Document(s) white blood count 5.1 10 4.0-10.0 White Blood Count [place] ([facility]) red blood count 3.65 10 4.00-5.40 Below low normal Red Blood Coun t [place] ([facility]) hemoglobin 10.9 g/dL 12.0-15.5 Below low normal Hemoglobin [place] ( [facility]) hematocrit 32.5 % 36.0-47.0 Below low normal Hematocrit [place] ( [facility]) mean corpuscular volume 89.0 fL 80.0-96.0 Mean Corpusc ular Volume [place] ([facility]) mean corpuscular hemoglobin 29.9 pg 27.0-33.0 Mean Cor puscular Hemoglobin [place] ([facility]) mean corpuscular HGB conc 33.5 g/dL 32.0-36.5 Mean Corpu scular HGB Conc [facility] ([facility]) red cell distribution width 12.1 % 11.5-14.5 Red Cell Distribution Width [place] ([facility]) platelet count, automated 220 10 150-450 Platelet C ount, Automated [place] ([facility]) nucleated red blood cell % 0.0 % 0-0 Nucleated Red Blood Cell % [place] ([facility]) ID Date Data Source [id number] 03/31/2021 05:10:00 AM EDT [facility]) Name Value Range Interpretation Code Description Data Claribel rce(s) Supporting Document(s) glucose, fasting 128 mg/dL 70-100 Above high normal Glucose, Fas ting [place] ([facility]) blood urea nitrogen 7 mg/dL 7-18 Blood Urea Nitro gen [place] ([facility]) creatinine for GFR 1.04 mg/dL 0.55-1.30 Creatinine for GF R [place] ([facility]) glomerular filtration rate > 60.0 >60 Glomerula r Filtration Rate [place] ([facility]) sodium level 142 mEq/L 136-145 Sodium Level [place] ([facility]) potassium serum 3.6 mEq/L 3.5-5.1 Potassium Serum [facility] ([facility]) chloride level 118 mEq/L 98-107 Above high normal Chloride Level [place] ([facility]) carbon dioxide level 19 mEq/L 21-32 Below low normal Carbon Di oxide Level [place] ([facility]) anion gap 5 mEq/L 8-16 Below low normal Anion Gap [place] ( [facility]) calcium level 8.3 mg/dL 8.5-10.1 Below low normal Calcium Level AT [facility]) ID Date Data Source [id number] 03/31/2021 05:10:00 AM EDT [facility]) Name Value Range Interpretation Code Description Data Claribel rce(s) Supporting Document(s) white blood count 5.1 10 4.0-10.0 White Blood Count [place] ([facility]) red blood count 3.65 10 4.00-5.40 Below low normal Red Blood Coun t [place] ([facility]) hemoglobin 10.9 g/dL 12.0-15.5 Below low normal Hemoglobin [facility] ( [facility]) hematocrit 32.5 % 36.0-47.0 Below low normal Hematocrit [facility] ( [facility]) mean corpuscular volume 89.0 fL 80.0-96.0 Mean Corpusc ular Volume [facility] ([facility]) mean corpuscular hemoglobin 29.9 pg 27.0-33.0 Mean Cor puscular Hemoglobin [facility] ([facility]) mean corpuscular HGB conc 33.5 g/dL 32.0-36.5 Mean Corpu scular HGB Conc [facility] ([facility]) red cell distribution width 12.1 % 11.5-14.5 Red Cell Distribution Width [facility] ([facility]) platelet count, automated 220 10 150-450 Platelet C ount, Automated [facility] ([facility]) nucleated red blood cell % 0.0 % 0-0 Nucleated Red Blood Cell % [place] ([facility]) ID Date Data Source [id number] 03/31/2021 04:06:00 AM EDT [facility]) Name Value Range Interpretation Code Description Data Claribel rce(s) Supporting Document(s) bedside glucose 150 mg/dL 70-105 Above high normal Bedside Gluco se [facility]) ID Date Data Source [id number] 03/31/2021 04:06:00 AM EDT [facility]) Name Value Range Interpretation Code Description Data Claribel rce(s) Supporting Document(s) bedside glucose 150 mg/dL 70-105 Above high normal Bedside Gluco se [facility]) ID Date Data Source [id number] 03/31/2021 04:06:00 AM EDT [facility]) Name Value Range Interpretation Code Description Data Claribel rce(s) Supporting Document(s) bedside glucose 150 mg/dL 70-105 Above high normal Bedside Gluco se [facility] ([facility]) ID Date Data Source [id number] 03/31/2021 03:17:00 AM EDT [facility]) Name Value Range Interpretation Code Description Data Claribel rce(s) Supporting Document(s) bedside glucose 164 mg/dL 70-105 Above high normal Bedside Gluco se [place] ([facility]) ID Date Data Source [id number] 03/31/2021 03:17:00 AM EDT [facility]) Name Value Range Interpretation Code Description Data Claribel rce(s) Supporting Document(s) bedside glucose 164 mg/dL 70-105 Above high normal Bedside Gluco se [place] ([facility]) ID Date Data Source [id number] 03/31/2021 03:17:00 AM EDT [facility]) Name Value Range Interpretation Code Description Data Claribel rce(s) Supporting Document(s) bedside glucose 164 mg/dL 70-105 Above high normal Bedside Gluco se [place] ([facility]) ID Date Data Source [id number] 03/31/2021 02:04:00 AM EDT [facility]) Name Value Range Interpretation Code Description Data Claribel rce(s) Supporting Document(s) bedside glucose 193 mg/dL 70-105 Above high normal Bedside Gluco se [place] ([facility]) ID Date Data Source [id number] 03/31/2021 02:04:00 AM EDT [facility]) Name Value Range Interpretation Code Description Data Claribel rce(s) Supporting Document(s) bedside glucose 193 mg/dL 70-105 Above high normal Bedside Gluco se [facility]) ID Date Data Source [id number] 03/31/2021 02:04:00 AM EDT [place] ([facility]) Name Value Range Interpretation Code Description Data Claribel rce(s) Supporting Document(s) bedside glucose 193 mg/dL 70-105 Above high normal Bedside Gluco se [facility] ([facility]) ID Date Data Source [id number] 03/31/2021 01:04:00 AM EDT [facility] ([facility]) Name Value Range Interpretation Code Description Data Claribel rce(s) Supporting Document(s) bedside glucose 103 mg/dL 70-105 Bedside Glucose A[facility]Juan [facility] ([facility]) ID Date Data Source [id number] 03/31/2021 01:04:00 AM EDT [facility]) Name Value Range Interpretation Code Description Data Claribel rce(s) Supporting Document(s) bedside glucose 103 mg/dL 70-105 Bedside Glucose ATHE [facility] ([facility]) ID Date Data Source [id number] 03/31/2021 01:04:00 AM EDT [facility]) Name Value Range Interpretation Code Description Data Claribel rce(s) Supporting Document(s) bedside glucose 103 mg/dL 70-105 Bedside Glucose ATHE [place] ([facility]) ID Date Data Source [id number] 03/31/2021 01:01:00 AM EDT [facility]) Name Value Range Interpretation Code Description Data Claribel rce(s) Supporting Document(s) glucose, fasting 173 mg/dL 70-100 Above high normal Glucose, Fas ting [place] ([facility]) blood urea nitrogen 9 mg/dL 7-18 Blood Urea Nitro gen [facility] ([facility]) creatinine for GFR 1.02 mg/dL 0.55-1.30 Creatinine for GF R [facility] ([facility]) glomerular filtration rate > 60.0 >60 Glomerula r Filtration Rate [place] ([facility]) sodium level 139 mEq/L 136-145 Sodium Level [facility] ([facility]) potassium serum 3.9 mEq/L 3.5-5.1 Potassium Serum [facility] NA ([facility]) chloride level 112 mEq/L 98-107 Above high normal Chloride Level [facility] ([facility]) carbon dioxide level 18 mEq/L 21-32 Below low normal Carbon Di oxide Level [facility] ([facility]) anion gap 9 mEq/L 8-16 Anion Gap [facility] ([facility]) calcium level 8.2 mg/dL 8.5-10.1 Below low normal Calcium Level AT [facility]) ID Date Data Source [id number] 03/31/2021 01:01:00 AM EDT [place] ([facility]) Name Value Range Interpretation Code Description Data Claribel rce(s) Supporting Document(s) glucose, fasting 173 mg/dL 70-100 Above high normal Glucose, Fas ting [place] ([facility]) blood urea nitrogen 9 mg/dL 7-18 Blood Urea Nitro gen [place] ([facility]) creatinine for GFR 1.02 mg/dL 0.55-1.30 Creatinine for GF R [place] ([facility]) glomerular filtration rate > 60.0 >60 Glomerula r Filtration Rate [facility] ([facility]) sodium level 139 mEq/L 136-145 Sodium Level [facility] ([facility]) potassium serum 3.9 mEq/L 3.5-5.1 Potassium Serum AT[facility] NA ([facility]) chloride level 112 mEq/L 98-107 Above high normal Chloride Level [place] ([facility]) carbon dioxide level 18 mEq/L 21-32 Below low normal Carbon Di oxide Level [facility] ([facility]) anion gap 9 mEq/L 8-16 Anion Gap [facility] ([facility]) calcium level 8.2 mg/dL 8.5-10.1 Below low normal Calcium Level AT [facility]) ID Date Data Source [id number] 03/31/2021 01:01:00 AM EDT [facility]) Name Value Range Interpretation Code Description Data Lcaribel rce(s) Supporting Document(s) glucose, fasting 173 mg/dL 70-100 Above high normal Glucose, Fas ting [facility] ([facility]) blood urea nitrogen 9 mg/dL 7-18 Blood Urea Nitro gen [facility] ([facility]) creatinine for GFR 1.02 mg/dL 0.55-1.30 Creatinine for GF R [facility] [facility]) glomerular filtration rate > 60.0 >60 Glomerula r Filtration Rate [facility] ([facility]) sodium level 139 mEq/L 136-145 Sodium Level [facility] ([facility]) potassium serum 3.9 mEq/L 3.5-5.1 Potassium Serum ATH NA ([facility]) chloride level 112 mEq/L 98-107 Above high normal Chloride Level [place] ([facility]) carbon dioxide level 18 mEq/L 21-32 Below low normal Carbon Di oxide Level [place] ([facility]) anion gap 9 mEq/L 8-16 Anion Gap [place] ([facility]) calcium level 8.2 mg/dL 8.5-10.1 Below low normal Calcium Level AT [facility]) ID Date Data Source [id number] 03/31/2021 12:10:00 AM EDT [facility]) Name Value Range Interpretation Code Description Data Claribel rce(s) Supporting Document(s) bedside glucose 143 mg/dL 70-105 Above high normal Bedside Gluco se [place] ([facility]) ID Date Data Source [id number] 03/31/2021 12:10:00 AM EDT [facility]) Name Value Range Interpretation Code Description Data Claribel rce(s) Supporting Document(s) bedside glucose 143 mg/dL 70-105 Above high normal Bedside Gluco se [facility]) ID Date Data Source [id number] 03/31/2021 12:10:00 AM EDT [facility]) Name Value Range Interpretation Code Description Data Claribel rce(s) Supporting Document(s) bedside glucose 143 mg/dL 70-105 Above high normal Bedside Gluco se [facility]) ID Date Data Source [id number] 03/30/2021 11:09:00 PM EDT [facility]) Name Value Range Interpretation Code Description Data Claribel rce(s) Supporting Document(s) bedside glucose 155 mg/dL 70-105 Above high normal Bedside Gluco se [facility]) ID Date Data Source [id number] 03/30/2021 11:09:00 PM EDT [facility]) Name Value Range Interpretation Code Description Data Claribel rce(s) Supporting Document(s) bedside glucose 155 mg/dL 70-105 Above high normal Bedside Gluco se [facility]) ID Date Data Source [id number] 03/30/2021 11:09:00 PM EDT [facility]) Name Value Range Interpretation Code Description Data Claribel rce(s) Supporting Document(s) bedside glucose 155 mg/dL 70-105 Above high normal Bedside Gluco se [facility]) ID Date Data Source [id number] 03/30/2021 10:03:00 PM EDT [facility]) Name Value Range Interpretation Code Description Data Claribel rce(s) Supporting Document(s) bedside glucose 160 mg/dL 70-105 Above high normal Bedside Gluco se [facility]) ID Date Data Source [id number] 03/30/2021 10:03:00 PM EDT [facility]) Name Value Range Interpretation Code Description Data Claribel rce(s) Supporting Document(s) bedside glucose 160 mg/dL 70-105 Above high normal Bedside Gluco se [place] ([facility]) ID Date Data Source [id number] 03/30/2021 10:03:00 PM EDT [place] ([facility]) Name Value Range Interpretation Code Description Data Claribel rce(s) Supporting Document(s) bedside glucose 160 mg/dL 70-105 Above high normal Bedside Gluco se [place] ([facility]) ID Date Data Source [id number] 03/30/2021 09:10:00 PM EDT [place] ([facility]) Name Value Range Interpretation Code Description Data Claribel rce(s) Supporting Document(s) magnesium level 1.8 mg/dL 1.8-2.4 [facility] ID Date Data Source [id number] 03/30/2021 09:10:00 PM EDT [facility]) Name Value Range Interpretation Code Description Data Claribel rce(s) Supporting Document(s) glucose, fasting 178 mg/dL 70-100 Above high normal Glucose, Fas ting [place] ([facility]) blood urea nitrogen 11 mg/dL 7-18 Blood Urea Nitro gen [facility] ([facility]) creatinine for GFR 1.10 mg/dL 0.55-1.30 Creatinine for GF R [facility] ([facility]) glomerular filtration rate > 60.0 >60 Glomerula r Filtration Rate [facility] ([facility]) sodium level 139 mEq/L 136-145 Sodium Level [facility] ([facility]) potassium serum 3.8 mEq/L 3.5-5.1 Potassium Serum [facility] NA ([facility]) chloride level 115 mEq/L 98-107 Above high normal Chloride Level [place] ([facility]) carbon dioxide level 15 mEq/L 21-32 Below low normal Carbon Di oxide Level [facility] ([facility]) anion gap 9 mEq/L 8-16 Anion Gap [facility] ([facility]) calcium level 8.4 mg/dL 8.5-10.1 Below low normal Calcium Level AT [facility] ([facility]) ID Date Data Source [id number] 03/30/2021 09:10:00 PM EDT [place] ([facility]) Name Value Range Interpretation Code Description Data Claribel rce(s) Supporting Document(s) magnesium level 1.8 mg/dL 1.8-2.4 Magnesium Level [facility] NA ([facility]) ID Date Data Source [id number] 03/30/2021 09:10:00 PM EDT [facility]) Name Value Range Interpretation Code Description Data Claribel rce(s) Supporting Document(s) glucose, fasting 178 mg/dL 70-100 Above high normal Glucose, Fas ting [facility] ([facility]) blood urea nitrogen 11 mg/dL 7-18 Blood Urea Nitro gen [facility] ([facility]) glomerular filtration rate > 60.0 >60 Glomerula r Filtration Rate [place] ([facility]) creatinine for GFR 1.10 mg/dL 0.55-1.30 Creatinine for GF R [facility] ([facility]) sodium level 139 mEq/L 136-145 Sodium Level [facility] ([facility]) potassium serum 3.8 mEq/L 3.5-5.1 Potassium Serum [facility] NA ([facility]) chloride level 115 mEq/L 98-107 Above high normal Chloride Level [place] ([facility]) carbon dioxide level 15 mEq/L 21-32 Below low normal Carbon Di oxide Level [facility] ([facility]) anion gap 9 mEq/L 8-16 Anion Gap [facility] ([facility]) calcium level 8.4 mg/dL 8.5-10.1 Below low normal Calcium Level AT [facility] ([facility]) ID Date Data Source [id number] 03/30/2021 09:10:00 PM EDT [facility]) Name Value Range Interpretation Code Description Data Claribel rce(s) Supporting Document(s) magnesium level 1.8 mg/dL 1.8-2.4 Magnesium Level [facility] ([facility]) ID Date Data Source [id number] 03/30/2021 09:10:00 PM EDT [place] ([facility]) Name Value Range Interpretation Code Description Data Claribel rce(s) Supporting Document(s) glucose, fasting 178 mg/dL 70-100 Above high normal Glucose, Fas ting [place] ([facility]) blood urea nitrogen 11 mg/dL 7-18 Blood Urea Nitro gen [place] ([facility]) creatinine for GFR 1.10 mg/dL 0.55-1.30 Creatinine for GF R [place] ([facility]) glomerular filtration rate > 60.0 >60 Glomerula r Filtration Rate [place] ([facility]) sodium level 139 mEq/L 136-145 Sodium Level [facility] ([facility]) potassium serum 3.8 mEq/L 3.5-5.1 Potassium Serum [facility] NA ([facility]) chloride level 115 mEq/L 98-107 Above high normal Chloride Level [place] ([facility]) carbon dioxide level 15 mEq/L 21-32 Below low normal Carbon Di oxide Level [place] ([facility]) anion gap 9 mEq/L 8-16 Anion Gap [facility] ([facility]) calcium level 8.4 mg/dL 8.5-10.1 Below low normal Calcium Level AT [place] ([facility]) ID Date Data Source [id number] 03/30/2021 09:09:00 PM EDT [place] ([facility]) Name Value Range Interpretation Code Description Data Claribel rce(s) Supporting Document(s) bedside glucose 180 mg/dL 70-105 Above high normal Bedside Gluco se [place] ([facility]) ID Date Data Source [id number] 03/30/2021 09:09:00 PM EDT [facility]) Name Value Range Interpretation Code Description Data Claribel rce(s) Supporting Document(s) bedside glucose 180 mg/dL 70-105 Above high normal Bedside Gluco se [facility]) ID Date Data Source [id number] 03/30/2021 09:09:00 PM EDT [facility]) Name Value Range Interpretation Code Description Data Claribel rce(s) Supporting Document(s) bedside glucose 180 mg/dL 70-105 Above high normal Bedside Gluco se [facility]) ID Date Data Source [id number] 03/30/2021 08:09:00 PM EDT [facility]) Name Value Range Interpretation Code Description Data Claribel rce(s) Supporting Document(s) bedside glucose 171 mg/dL 70-105 Above high normal Bedside Gluco se [facility]) ID Date Data Source [id number] 03/30/2021 08:09:00 PM EDT [facility]) Name Value Range Interpretation Code Description Data Claribel rce(s) Supporting Document(s) bedside glucose 171 mg/dL 70-105 Above high normal Bedside Gluco se [facility]) ID Date Data Source [id number] 03/30/2021 08:09:00 PM EDT [facility]) Name Value Range Interpretation Code Description Data Claribel rce(s) Supporting Document(s) bedside glucose 171 mg/dL 70-105 Above high normal Bedside Gluco se [facility]) ID Date Data Source [id number] 03/30/2021 07:11:00 PM EDT [facility]) Name Value Range Interpretation Code Description Data Claribel rce(s) Supporting Document(s) bedside glucose 185 mg/dL 70-105 Above high normal Bedside Gluco se [facility]) ID Date Data Source [id number] 03/30/2021 07:11:00 PM EDT [facility]) Name Value Range Interpretation Code Description Data Claribel rce(s) Supporting Document(s) bedside glucose 185 mg/dL 70-105 Above high normal Bedside Gluco se [place] ([facility]) ID Date Data Source [id number] 03/30/2021 07:11:00 PM EDT [facility]) Name Value Range Interpretation Code Description Data Claribel rce(s) Supporting Document(s) bedside glucose 185 mg/dL 70-105 Above high normal Bedside Gluco se [place] ([facility]) ID Date Data Source [id number] 03/30/2021 06:15:00 PM EDT [facility]) Name Value Range Interpretation Code Description Data Claribel rce(s) Supporting Document(s) bedside glucose 198 mg/dL 70-105 Above high normal Bedside Gluco se [place] ([facility]) ID Date Data Source [id number] 03/30/2021 06:15:00 PM EDT [facility]) Name Value Range Interpretation Code Description Data Claribel rce(s) Supporting Document(s) bedside glucose 198 mg/dL 70-105 Above high normal Bedside Gluco se [place] ([facility]) ID Date Data Source [id number] 03/30/2021 06:15:00 PM EDT [facility]) Name Value Range Interpretation Code Description Data Claribel rce(s) Supporting Document(s) bedside glucose 198 mg/dL 70-105 Above high normal Bedside Gluco se [place] ([facility]) ID Date Data Source [id number] 03/30/2021 05:34:00 PM EDT [place] ([facility]) Name Value Range Interpretation Code Description Data Claribel rce(s) Supporting Document(s) bedside glucose 192 mg/dL 70-105 Above high normal Bedside Gluco se [place] ([facility]) ID Date Data Source [id number] 03/30/2021 05:34:00 PM EDT [place] ([facility]) Name Value Range Interpretation Code Description Data Claribel rce(s) Supporting Document(s) bedside glucose 192 mg/dL 70-105 Above high normal Bedside Gluco se [place] ([facility]) ID Date Data Source [id number] 03/30/2021 05:34:00 PM EDT [facility]) Name Value Range Interpretation Code Description Data Claribel rce(s) Supporting Document(s) bedside glucose 192 mg/dL 70-105 Above high normal Bedside Gluco se [place] ([facility]) ID Date Data Source [id number] 03/30/2021 05:32:00 PM EDT [place] ([facility]) Name Value Range Interpretation Code Description Data Claribel rce(s) Supporting Document(s) magnesium level 1.9 mg/dL 1.8-2.4 [facility] ID Date Data Source [id number] 03/30/2021 05:32:00 PM EDT [place] ([facility]) Name Value Range Interpretation Code Description Data Claribel rce(s) Supporting Document(s) glucose, fasting 195 mg/dL 70-100 Above high normal Glucose, Fas ting [place] ([facility]) blood urea nitrogen 12 mg/dL 7-18 Blood Urea Nitro gen [place] ([facility]) creatinine for GFR 1.09 mg/dL 0.55-1.30 Creatinine for GF R [place] ([facility]) glomerular filtration rate > 60.0 >60 Glomerula r Filtration Rate [place] ([facility]) sodium level 141 mEq/L 136-145 Sodium Level [facility] ([facility]) potassium serum 3.9 mEq/L 3.5-5.1 Potassium Serum [facility] NA ([facility]) chloride level 115 mEq/L 98-107 Above high normal Chloride Level [facility] ([facility]) carbon dioxide level 16 mEq/L 21-32 Below low normal Carbon Di oxide Level [facility] ([facility]) anion gap 10 mEq/L 8-16 Anion Gap [facility] ([facility]) calcium level 8.2 mg/dL 8.5-10.1 Below low normal Calcium Level AT [facility]) ID Date Data Source [id number] 03/30/2021 05:32:00 PM EDT [facility]) Name Value Range Interpretation Code Description Data Claribel rce(s) Supporting Document(s) magnesium level 1.9 mg/dL 1.8-2.4 [facility] ID Date Data Source [id number] 03/30/2021 05:32:00 PM EDT [facility]) Name Value Range Interpretation Code Description Data Claribel rce(s) Supporting Document(s) glucose, fasting 195 mg/dL 70-100 Above high normal Glucose, Fas ting [facility] ([facility]) blood urea nitrogen 12 mg/dL 7-18 Blood Urea Nitro gen [facility] ([facility]) glomerular filtration rate > 60.0 >60 Glomerula r Filtration Rate [facility] ([facility]) creatinine for GFR 1.09 mg/dL 0.55-1.30 Creatinine for GF R [facility] ([facility]) sodium level 141 mEq/L 136-145 Sodium Level [facility] ([facility]) potassium serum 3.9 mEq/L 3.5-5.1 Potassium Serum [facility] NA ([facility]) chloride level 115 mEq/L 98-107 Above high normal Chloride Level [place] ([facility]) carbon dioxide level 16 mEq/L 21-32 Below low normal Carbon Di oxide Level [facility] ([facility]) anion gap 10 mEq/L 8-16 Anion Gap [facility] ([facility]) calcium level 8.2 mg/dL 8.5-10.1 Below low normal Calcium Level AT [facility] ([facility]) ID Date Data Source [id number] 03/30/2021 05:32:00 PM EDT [facility] ([facility]) Name Value Range Interpretation Code Description Data Claribel rce(s) Supporting Document(s) magnesium level 1.9 mg/dL 1.8-2.4 Magnesium Level [facility] ([facility]) ID Date Data Source [id number] 03/30/2021 05:32:00 PM EDT [place] ([facility]) Name Value Range Interpretation Code Description Data Claribel rce(s) Supporting Document(s) glucose, fasting 195 mg/dL 70-100 Above high normal Glucose, Fas ting [facility] ([facility]) blood urea nitrogen 12 mg/dL 7-18 Blood Urea Nitro gen [facility] ([facility]) creatinine for GFR 1.09 mg/dL 0.55-1.30 Creatinine for GF R [place] ([facility]) glomerular filtration rate > 60.0 >60 Glomerula r Filtration Rate [facility] ([facility]) sodium level 141 mEq/L 136-145 Sodium Level [facility] ([facility]) potassium serum 3.9 mEq/L 3.5-5.1 Potassium Serum AT[facility] NA ([facility]) chloride level 115 mEq/L 98-107 Above high normal Chloride Level [place] ([facility]) carbon dioxide level 16 mEq/L 21-32 Below low normal Carbon Di oxide Level [facility] ([facility]) anion gap 10 mEq/L 8-16 Anion Gap [facility] ([facility]) calcium level 8.2 mg/dL 8.5-10.1 Below low normal Calcium Level AT [facility] ([facility]) ID Date Data Source [id number] 03/30/2021 04:31:00 PM EDT [facility]) Name Value Range Interpretation Code Description Data Claribel rce(s) Supporting Document(s) bedside glucose 182 mg/dL 70-105 Above high normal Bedside Gluco se [facility]) ID Date Data Source [id number] 03/30/2021 04:31:00 PM EDT [facility]) Name Value Range Interpretation Code Description Data Claribel rce(s) Supporting Document(s) bedside glucose 182 mg/dL 70-105 Above high normal Bedside Gluco se [facility]) ID Date Data Source [id number] 03/30/2021 04:31:00 PM EDT [facility]) Name Value Range Interpretation Code Description Data Claribel rce(s) Supporting Document(s) bedside glucose 182 mg/dL 70-105 Above high normal Bedside Gluco se [facility]) ID Date Data Source [id number] 03/30/2021 03:07:00 PM EDT [facility]) Name Value Range Interpretation Code Description Data Claribel rce(s) Supporting Document(s) bedside glucose 207 mg/dL 70-105 Above high normal Bedside Gluco se [facility]) ID Date Data Source [id number] 03/30/2021 03:07:00 PM EDT [facility]) Name Value Range Interpretation Code Description Data Claribel rce(s) Supporting Document(s) bedside glucose 207 mg/dL 70-105 Above high normal Bedside Gluco se [facility]) ID Date Data Source [id number] 03/30/2021 03:07:00 PM EDT [facility]) Name Value Range Interpretation Code Description Data Claribel rce(s) Supporting Document(s) bedside glucose 207 mg/dL 70-105 Above high normal Bedside Gluco se [place] ([facility]) ID Date Data Source [id number] 03/30/2021 02:06:00 PM EDT [facility]) Name Value Range Interpretation Code Description Data Claribel rce(s) Supporting Document(s) bedside glucose 128 mg/dL 70-105 Above high normal Bedside Gluco se [place] ([facility]) ID Date Data Source [id number] 03/30/2021 02:06:00 PM EDT [facility]) Name Value Range Interpretation Code Description Data Claribel rce(s) Supporting Document(s) bedside glucose 128 mg/dL 70-105 Above high normal Bedside Gluco se [facility]) ID Date Data Source [id number] 03/30/2021 02:06:00 PM EDT [facility]) Name Value Range Interpretation Code Description Data Claribel rce(s) Supporting Document(s) bedside glucose 128 mg/dL 70-105 Above high normal Bedside Gluco se [facility]) ID Date Data Source [id number] 03/30/2021 01:05:00 PM EDT [facility]) Name Value Range Interpretation Code Description Data Claribel rce(s) Supporting Document(s) bedside glucose 138 mg/dL 70-105 Above high normal Bedside Gluco se [facility]) ID Date Data Source [id number] 03/30/2021 01:05:00 PM EDT [facility]) Name Value Range Interpretation Code Description Data Claribel rce(s) Supporting Document(s) bedside glucose 138 mg/dL 70-105 Above high normal Bedside Gluco se [facility]) ID Date Data Source [id number] 03/30/2021 01:05:00 PM EDT [place] ([facility]) Name Value Range Interpretation Code Description Data Claribel rce(s) Supporting Document(s) bedside glucose 138 mg/dL 70-105 Above high normal Bedside Gluco se [place] ([facility]) ID Date Data Source [id number] 03/30/2021 12:13:00 PM EDT [place] ([facility]) Name Value Range Interpretation Code Description Data Claribel rce(s) Supporting Document(s) osmolality serum 308 mOsm/kg 275-295 Above high normal Osmolality Serum [place] ([facility]) ID Date Data Source [id number] 03/30/2021 12:13:00 PM EDT [place] ([facility]) Name Value Range Interpretation Code Description Data Claribel rce(s) Supporting Document(s) phosphorus level 1.7 mg/dL 2.5-4.9 Below low normal Phosphorus Le karma [facility] ([facility]) ID Date Data Source [id number] 03/30/2021 12:13:00 PM EDT [place] ([facility]) Name Value Range Interpretation Code Description Data Claribel rce(s) Supporting Document(s) glucose, fasting 118 mg/dL 70-100 Above high normal Glucose, Fas ting [facility] ([facility]) blood urea nitrogen 16 mg/dL 7-18 Blood Urea Nitro gen [facility] ([facility]) creatinine for GFR 1.18 mg/dL 0.55-1.30 Creatinine for GF R [place] ([facility]) glomerular filtration rate >60 Below low normal Mariza merular Filtration Rate [facility] ([facility]) sodium level 144 mEq/L 136-145 Sodium Level [facility] ([facility]) potassium serum 4.4 mEq/L 3.5-5.1 Potassium Serum [facility] NA ([facility]) chloride level 117 mEq/L 98-107 Above high normal Chloride Level [facility] ([facility]) carbon dioxide level 12 mEq/L 21-32 Below low normal Carbon Di oxide Level [facility] ([facility]) anion gap 15 mEq/L 8-16 Anion Gap [facility] ([facility]) calcium level 9.1 mg/dL 8.5-10.1 Calcium Level [facility] ( [facility]) ID Date Data Source [id number] 03/30/2021 12:13:00 PM EDT [facility] ([facility]) Name Value Range Interpretation Code Description Data Claribel rce(s) Supporting Document(s) venous pH 7.171 units 7.330-7.430 Below low normal Venous pH [facility] ([facility]) venous partial pressure CO2 26.1 mmHg 38.0-50.0 Below low nor mal Venous Partial Pressure CO2 [facility] ([facility]) venous partial pressure O2 64.5 mmHg 30.0-50.0 Above high nor mal Venous Partial Pressure O2 [facility] ([facility]) venous total CO2 10.1 mEq/L 24.0-28.0 Below low normal Venous Total CO2 [facility] ([facility]) venous HCO3 9.3 mEq/L 23.0-27.0 Below low normal Venous HCO3 [facility] ([facility]) venous base excess -2.0-2.0 Below low normal Venous Base Excess [facility] ([facility]) venous standard HCO3 11.3 mEq/L Venous Standard HCO3 [facility] ([facility]) venous O2 saturation 90.9 % 60.0-80.0 Above high normal Venous O 2 Saturation [facility] ([facility]) ID Date Data Source [id number] 03/30/2021 12:13:00 PM EDT [facility] ([facility]) Name Value Range Interpretation Code Description Data Claribel rce(s) Supporting Document(s) osmolality serum 308 mOsm/kg 275-295 Above high normal Osmolality Serum [facility] ([facility]) ID Date Data Source [id number] 03/30/2021 12:13:00 PM EDT [facility] ([facility]) Name Value Range Interpretation Code Description Data Claribel rce(s) Supporting Document(s) phosphorus level 1.7 mg/dL 2.5-4.9 Below low normal Phosphorus Le karma [facility] ([facility]) ID Date Data Source [id number] 03/30/2021 12:13:00 PM EDT [facility] ([facility]) Name Value Range Interpretation Code Description Data Claribel rce(s) Supporting Document(s) glucose, fasting 118 mg/dL 70-100 Above high normal Glucose, Fas ting [facility] ([facility]) blood urea nitrogen 16 mg/dL 7-18 Blood Urea Nitro gen [facility] [place] ([facility]) creatinine for GFR 1.18 mg/dL 0.55-1.30 Creatinine for GF R [facility] [place] ([facility]) glomerular filtration rate >60 Below low normal Mariza merular Filtration Rate [facility] ([facility]) sodium level 144 mEq/L 136-145 Sodium Level [facility] ([facility]) potassium serum 4.4 mEq/L 3.5-5.1 Potassium Serum [facility] NA ([facility]) chloride level 117 mEq/L 98-107 Above high normal Chloride Level [facility] ([facility]) carbon dioxide level 12 mEq/L 21-32 Below low normal Carbon Di oxide Level [facility] ([facility]) anion gap 15 mEq/L 8-16 Anion Gap [facility] ([facility]) calcium level 9.1 mg/dL 8.5-10.1 Calcium Level [facility] ( [facility]) ID Date Data Source [id number] 03/30/2021 12:13:00 PM EDT [facility]) Name Value Range Interpretation Code Description Data Claribel rce(s) Supporting Document(s) venous pH 7.171 units 7.330-7.430 Below low normal Venous pH [facility] ([facility]) venous partial pressure CO2 26.1 mmHg 38.0-50.0 Below low nor mal Venous Partial Pressure CO2 [facility] ([facility]) venous partial pressure O2 64.5 mmHg 30.0-50.0 Above high nor mal Venous Partial Pressure O2 [facility] ([facility]) venous total CO2 10.1 mEq/L 24.0-28.0 Below low normal Venous Total CO2 [facility] ([facility]) venous HCO3 9.3 mEq/L 23.0-27.0 Below low normal Venous HCO3 [facility] [place] ([facility]) venous base excess -2.0-2.0 Below low normal Venous Base Excess [facility] ([facility]) venous standard HCO3 11.3 mEq/L Venous Standard HCO3 [facility] [place] ([facility]) venous O2 saturation 90.9 % 60.0-80.0 Above high normal Venous O 2 Saturation [facility] ([facility]) ID Date Data Source [id number] 03/30/2021 12:13:00 PM EDT [facility] ([facility]) Name Value Range Interpretation Code Description Data Claribel rce(s) Supporting Document(s) osmolality serum 308 mOsm/kg 275-295 Above high normal Osmolality Serum [facility] ([facility]) ID Date Data Source [id number] 03/30/2021 12:13:00 PM EDT [facility] ([facility]) Name Value Range Interpretation Code Description Data Claribel rce(s) Supporting Document(s) phosphorus level 1.7 mg/dL 2.5-4.9 Below low normal Phosphorus Le karma [facility] ([facility]) ID Date Data Source [id number] 03/30/2021 12:13:00 PM EDT [facility]) Name Value Range Interpretation Code Description Data Claribel rce(s) Supporting Document(s) glucose, fasting 118 mg/dL 70-100 Above high normal Glucose, Fas ting [facility] ([facility]) blood urea nitrogen 16 mg/dL 7-18 Blood Urea Nitro gen [facility] [place] ([facility]) creatinine for GFR 1.18 mg/dL 0.55-1.30 Creatinine for GF R [facility] ([facility]) glomerular filtration rate >60 Below low normal Mariza merular Filtration Rate [facility] ([facility]) sodium level 144 mEq/L 136-145 Sodium Level [facility] ([facility]) potassium serum 4.4 mEq/L 3.5-5.1 Potassium Serum [facility] NA ([facility]) chloride level 117 mEq/L 98-107 Above high normal Chloride Level [facility] ([facility]) carbon dioxide level 12 mEq/L 21-32 Below low normal Carbon Di oxide Level [facility] ([facility]) anion gap 15 mEq/L 8-16 Anion Gap [facility] ([facility]) calcium level 9.1 mg/dL 8.5-10.1 Calcium Level [facility] ( [facility]) ID Date Data Source [id number] 03/30/2021 12:13:00 PM EDT [facility] ([facility]) Name Value Range Interpretation Code Description Data Claribel rce(s) Supporting Document(s) venous pH 7.171 units 7.330-7.430 Below low normal Venous pH [facility] ([facility]) venous partial pressure CO2 26.1 mmHg 38.0-50.0 Below low nor mal Venous Partial Pressure CO2 [facility] ([facility]) venous partial pressure O2 64.5 mmHg 30.0-50.0 Above high nor mal Venous Partial Pressure O2 [facility] ([facility]) venous total CO2 10.1 mEq/L 24.0-28.0 Below low normal Venous Total CO2 [facility] ([facility]) venous HCO3 9.3 mEq/L 23.0-27.0 Below low normal Venous HCO3 [facility] ([facility]) venous base excess -2.0-2.0 Below low normal Venous Base Excess [facility] ([facility]) venous standard HCO3 11.3 mEq/L Venous Standard HCO3 [facility]) venous O2 saturation 90.9 % 60.0-80.0 Above high normal Venous O 2 Saturation [facility]) ID Date Data Source [id number] 03/30/2021 12:12:00 PM EDT [facility]) Name Value Range Interpretation Code Description Data Claribel rce(s) Supporting Document(s) bedside glucose 123 mg/dL 70-105 Above high normal Bedside Gluco se [facility]) ID Date Data Source [id number] 03/30/2021 12:12:00 PM EDT [facility]) Name Value Range Interpretation Code Description Data Claribel rce(s) Supporting Document(s) bedside glucose 123 mg/dL 70-105 Above high normal Bedside Gluco se [facility]) ID Date Data Source [id number] 03/30/2021 12:12:00 PM EDT [facility]) Name Value Range Interpretation Code Description Data Claribel rce(s) Supporting Document(s) bedside glucose 123 mg/dL 70-105 Above high normal Bedside Gluco se [facility]) ID Date Data Source [id number] 03/30/2021 11:00:00 AM EDT [facility]) Name Value Range Interpretation Code Description Data Claribel rce(s) Supporting Document(s) bedside glucose 113 mg/dL 70-105 Above high normal Bedside Gluco se [facility]) ID Date Data Source [id number] 03/30/2021 11:00:00 AM EDT [facility]) Name Value Range Interpretation Code Description Data Claribel rce(s) Supporting Document(s) bedside glucose 113 mg/dL 70-105 Above high normal Bedside Gluco se [facility]) ID Date Data Source [id number] 03/30/2021 11:00:00 AM EDT [facility]) Name Value Range Interpretation Code Description Data Claribel rce(s) Supporting Document(s) bedside glucose 113 mg/dL 70-105 Above high normal Bedside Gluco se [place] ([facility]) ID Date Data Source [id number] 03/30/2021 09:57:00 AM EDT [facility]) Name Value Range Interpretation Code Description Data Claribel rce(s) Supporting Document(s) bedside glucose 161 mg/dL 70-105 Above high normal Bedside Gluco se [facility] [place] ([facility]) ID Date Data Source [id number] 03/30/2021 09:57:00 AM EDT [facility]) Name Value Range Interpretation Code Description Data Claribel rce(s) Supporting Document(s) bedside glucose 161 mg/dL 70-105 Above high normal Bedside Gluco se [facility]) ID Date Data Source [id number] 03/30/2021 09:57:00 AM EDT [facility]) Name Value Range Interpretation Code Description Data Claribel rce(s) Supporting Document(s) bedside glucose 161 mg/dL 70-105 Above high normal Bedside Gluco se [facility]) ID Date Data Source [id number] 03/30/2021 08:57:00 AM EDT [facility]) Name Value Range Interpretation Code Description Data Claribel rce(s) Supporting Document(s) bedside glucose 206 mg/dL 70-105 Above high normal Bedside Gluco se [facility]) ID Date Data Source [id number] 03/30/2021 08:57:00 AM EDT [facility]) Name Value Range Interpretation Code Description Data Claribel rce(s) Supporting Document(s) bedside glucose 206 mg/dL 70-105 Above high normal Bedside Gluco se [facility]) ID Date Data Source [id number] 03/30/2021 08:57:00 AM EDT [facility] ([facility]) Name Value Range Interpretation Code Description Data Claribel rce(s) Supporting Document(s) bedside glucose 206 mg/dL 70-105 Above high normal Bedside Gluco se [place] ([facility]) ID Date Data Source [id number] 03/30/2021 08:36:00 AM EDT [facility]) Name Value Range Interpretation Code Description Data Claribel rce(s) Supporting Document(s) osmolality serum 317 mOsm/kg 275-295 Above high normal Osmolality Serum [facility] ([facility]) ID Date Data Source [id number] 03/30/2021 08:36:00 AM EDT [facility]) Name Value Range Interpretation Code Description Data Claribel rce(s) Supporting Document(s) magnesium level 2.0 mg/dL 1.8-2.4 Magnesium Level [facility] ([facility]) ID Date Data Source [id number] 03/30/2021 08:36:00 AM EDT [facility] [place] ([facility]) Name Value Range Interpretation Code Description Data Claribel rce(s) Supporting Document(s) phosphorus level 1.4 mg/dL 2.5-4.9 Below low normal Phosphorus Le karma [facility] ([facility]) ID Date Data Source [id number] 03/30/2021 08:36:00 AM EDT [facility]) Name Value Range Interpretation Code Description Data Claribel rce(s) Supporting Document(s) glucose, fasting 237 mg/dL 70-100 Above high normal Glucose, Fas ting [facility] ([facility]) blood urea nitrogen 17 mg/dL 7-18 Blood Urea Nitro gen [facility] [place] ([facility]) creatinine for GFR 1.43 mg/dL 0.55-1.30 Above high normal Creatinine for GFR [facility] ([facility]) glomerular filtration rate >60 Below low normal Mariza merular Filtration Rate [facility] ([facility]) sodium level 143 mEq/L 136-145 Sodium Level [facility] ([facility]) potassium serum 4.0 mEq/L 3.5-5.1 Potassium Serum [facility] NA ([facility]) chloride level 115 mEq/L 98-107 Above high normal Chloride Level [facility] ([facility]) carbon dioxide level 11 mEq/L 21-32 Below low normal Carbon Di oxide Level [facility] ([facility]) anion gap 17 mEq/L 8-16 Above high normal Anion Gap [facility] ([facility]) calcium level 9.2 mg/dL 8.5-10.1 Calcium Level [facility] ( [facility]) ID Date Data Source [id number] 03/30/2021 08:36:00 AM EDT [facility] [place] ([facility]) Name Value Range Interpretation Code Description Data Claribel rce(s) Supporting Document(s) osmolality serum 317 mOsm/kg 275-295 Above high normal Osmolality Serum [facility] ([facility]) ID Date Data Source [id number] 03/30/2021 08:36:00 AM EDT [facility]) Name Value Range Interpretation Code Description Data Claribel rce(s) Supporting Document(s) magnesium level 2.0 mg/dL 1.8-2.4 Magnesium Level [facility] ([facility]) ID Date Data Source [id number] 03/30/2021 08:36:00 AM EDT [facility]) Name Value Range Interpretation Code Description Data Claribel rce(s) Supporting Document(s) phosphorus level 1.4 mg/dL 2.5-4.9 Below low normal Phosphorus Le karma [facility] ([facility]) ID Date Data Source [id number] 03/30/2021 08:36:00 AM EDT [facility] [place] ([facility]) Name Value Range Interpretation Code Description Data Claribel rce(s) Supporting Document(s) glucose, fasting 237 mg/dL 70-100 Above high normal Glucose, Fas ting [facility] ([facility]) blood urea nitrogen 17 mg/dL 7-18 Blood Urea Nitro gen [facility] ([facility]) creatinine for GFR 1.43 mg/dL 0.55-1.30 Above high normal Creatinine for GFR [facility] [place] ([facility]) glomerular filtration rate >60 Below low normal Mariza merular Filtration Rate [facility] ([facility]) sodium level 143 mEq/L 136-145 Sodium Level [facility] ([facility]) potassium serum 4.0 mEq/L 3.5-5.1 Potassium Serum [facility] ([facility]) chloride level 115 mEq/L 98-107 Above high normal Chloride Level [facility] [place] ([facility]) carbon dioxide level 11 mEq/L 21-32 Below low normal Carbon Di oxide Level [facility] [place] ([facility]) anion gap 17 mEq/L 8-16 Above high normal Anion Gap [facility] [place] ([facility]) calcium level 9.2 mg/dL 8.5-10.1 Calcium Level [facility] [place] ( [facility]) ID Date Data Source [id number] 03/30/2021 08:36:00 AM EDT [facility]) Name Value Range Interpretation Code Description Data Claribel rce(s) Supporting Document(s) osmolality serum 317 mOsm/kg 275-295 Above high normal Osmolality Serum [facility] ([facility]) ID Date Data Source [id number] 03/30/2021 08:36:00 AM EDT [facility]) Name Value Range Interpretation Code Description Data Claribel rce(s) Supporting Document(s) magnesium level 2.0 mg/dL 1.8-2.4 [facility] Date Data Source [id number] 03/30/2021 08:36:00 AM EDT [facility] ([facility]) Name Value Range Interpretation Code Description Data Claribel rce(s) Supporting Document(s) phosphorus level 1.4 mg/dL 2.5-4.9 Below low normal Phosphorus Le karma [facility] ([facility]) ID Date Data Source [id number] 03/30/2021 08:36:00 AM EDT [facility] [place] ([facility]) Name Value Range Interpretation Code Description Data Claribel rce(s) Supporting Document(s) glucose, fasting 237 mg/dL 70-100 Above high normal Glucose, Fas ting [facility] [place] ([facility]) blood urea nitrogen 17 mg/dL 7-18 Blood Urea Nitro gen [place] ([facility]) creatinine for GFR 1.43 mg/dL 0.55-1.30 Above high normal Creatinine for GFR [facility] [place] ([facility]) glomerular filtration rate >60 Below low normal Mariza merular Filtration Rate [facility] [place] ([facility]) sodium level 143 mEq/L 136-145 Sodium Level [facility] ([facility]) potassium serum 4.0 mEq/L 3.5-5.1 Potassium Serum [facility] ([facility]) chloride level 115 mEq/L 98-107 Above high normal Chloride Level [facility] [place] ([facility]) carbon dioxide level 11 mEq/L 21-32 Below low normal Carbon Di oxide Level [facility] ([facility]) anion gap 17 mEq/L 8-16 Above high normal Anion Gap [facility] ([facility]) calcium level 9.2 mg/dL 8.5-10.1 Calcium Level [facility] ( [facility]) ID Date Data Source [id number] 03/30/2021 07:48:00 AM EDT [facility]) Name Value Range Interpretation Code Description Data Claribel rce(s) Supporting Document(s) bedside glucose 327 mg/dL 70-105 Above high normal Bedside Gluco se [facility] ([facility]) ID Date Data Source [id number] 03/30/2021 07:48:00 AM EDT [facility]) Name Value Range Interpretation Code Description Data Claribel rce(s) Supporting Document(s) bedside glucose 327 mg/dL 70-105 Above high normal Bedside Gluco se [facility]) ID Date Data Source [id number] 03/30/2021 07:48:00 AM EDT [facility]) Name Value Range Interpretation Code Description Data Claribel rce(s) Supporting Document(s) bedside glucose 327 mg/dL 70-105 Above high normal Bedside Gluco se [facility]) ID Date Data Source [id number] 03/30/2021 06:39:00 AM EDT [facility]) Name Value Range Interpretation Code Description Data Claribel rce(s) Supporting Document(s) bedside glucose 373 mg/dL 70-105 Above high normal Bedside Gluco se [facility]) ID Date Data Source [id number] 03/30/2021 06:39:00 AM EDT [facility]) Name Value Range Interpretation Code Description Data Claribel rce(s) Supporting Document(s) bedside glucose 373 mg/dL 70-105 Above high normal Bedside Gluco se [facility]) ID Date Data Source [id number] 03/30/2021 06:39:00 AM EDT [facility]) Name Value Range Interpretation Code Description Data Claribel rce(s) Supporting Document(s) bedside glucose 373 mg/dL 70-105 Above high normal Bedside Gluco se [facility]) ID Date Data Source [id number] 03/30/2021 05:00:00 AM EDT [facility]) Name Value Range Interpretation Code Description Data Claribel rce(s) Supporting Document(s) bedside glucose 344 mg/dL 70-105 Above high normal Bedside Gluco se [facility]) ID Date Data Source [id number] 03/30/2021 05:00:00 AM EDT [facility]) Name Value Range Interpretation Code Description Data Claribel rce(s) Supporting Document(s) bedside glucose 344 mg/dL 70-105 Above high normal Bedside Gluco se [facility]) ID Date Data Source [id number] 03/30/2021 05:00:00 AM EDT [facility]) Name Value Range Interpretation Code Description Data Claribel rce(s) Supporting Document(s) bedside glucose 344 mg/dL 70-105 Above high normal Bedside Gluco se [facility]) ID Date Data Source [id number] 03/30/2021 03:53:00 AM EDT [facility]) Name Value Range Interpretation Code Description Data Claribel rce(s) Supporting Document(s) osmolality serum 322 mOsm/kg 275-295 Above high normal Osmolality Serum [facility]) ID Date Data Source [id number] 03/30/2021 03:53:00 AM EDT [facility]) Name Value Range Interpretation Code Description Data Claribel rce(s) Supporting Document(s) osmolality serum 322 mOsm/kg 275-295 Above high normal Osmolality Serum [facility]) ID Date Data Source [id number] 03/30/2021 03:53:00 AM EDT [facility]) Name Value Range Interpretation Code Description Data Claribel rce(s) Supporting Document(s) lipase 63 U/L 73-393 Below low normal Lipase [facility]) ID Date Data Source [id number] 03/30/2021 03:53:00 AM EDT [facility] [place] ([facility]) Name Value Range Interpretation Code Description Data Claribel rce(s) Supporting Document(s) phosphorus level 2.9 mg/dL 2.5-4.9 Phosphorus Level [facility]) ID Date Data Source [id number] 03/30/2021 03:53:00 AM EDT [facility] [place] ([facility]) Name Value Range Interpretation Code Description Data Claribel rce(s) Supporting Document(s) glucose, fasting 332 mg/dL 70-100 Above high normal Glucose, Fas ting [facility] [place] ([facility]) blood urea nitrogen 18 mg/dL 7-18 Blood Urea Nitro gen [place] ([facility]) creatinine for GFR 1.19 mg/dL 0.55-1.30 Creatinine for GF R [facility] ([facility]) glomerular filtration rate >60 Below low normal Mariza merular Filtration Rate [place] ([facility]) sodium level 140 mEq/L 136-145 Sodium Level [facility] [place] ([facility]) potassium serum 4.5 mEq/L 3.5-5.1 Potassium Serum [facility] NA ([facility]) chloride level 112 mEq/L 98-107 Above high normal Chloride Level [facility] ([facility]) carbon dioxide level 8 mEq/L 21-32 Below low normal Carbon Di oxide Level [facility] [place] ([facility]) anion gap 20 mEq/L 8-16 Above high normal Anion Gap [facility] ([facility]) calcium level 8.3 mg/dL 8.5-10.1 Below low normal Calcium Level [facility]) ID Date Data Source [id number] 03/30/2021 03:53:00 AM EDT [facility]) Name Value Range Interpretation Code Description Data Claribel rce(s) Supporting Document(s) Hemoglobin A1c/Hemoglobin.total in Blood 11.3 % Hemoglobin a1C [facility]) estimated average glucose 278 mg/dL 60-110 Above high norm al Estimated Average Glucose [facility] ([facility]) ID Date Data Source [id number] 03/30/2021 03:53:00 AM EDT [facility]) Name Value Range Interpretation Code Description Data Claribel rce(s) Supporting Document(s) venous pH 7.174 units 7.330-7.430 Below low normal Venous pH [facility] [facility]) venous partial pressure CO2 19.8 mmHg 38.0-50.0 Below low nor mal Venous Partial Pressure CO2 [place] ([facility]) venous partial pressure O2 139.4 mmHg 30.0-50.0 Above high nor mal Venous Partial Pressure O2 [place] ([facility]) venous total CO2 7.7 mEq/L 24.0-28.0 Below low normal Venous Total CO2 [place] ([facility]) venous HCO3 7.1 mEq/L 23.0-27.0 Below low normal Venous HCO3 [facility] ([facility]) venous base excess -2.0-2.0 Below low normal Venous Base Excess [facility] ([facility]) venous standard HCO3 10.4 mEq/L Venous Standard HCO3 [place] ([facility]) venous O2 saturation 98.8 % 60.0-80.0 Above high normal Venous O 2 Saturation [place] ([facility]) venous site unknown Venous Site [facility] ([facility]) ID Date Data Source [id number] 03/30/2021 03:53:00 AM EDT [facility]) Name Value Range Interpretation Code Description Data Claribel rce(s) Supporting Document(s) osmolality serum 322 mOsm/kg 275-295 Above high normal Osmolality Serum [facility]) ID Date Data Source [id number] 03/30/2021 03:53:00 AM EDT [facility]) Name Value Range Interpretation Code Description Data Claribel rce(s) Supporting Document(s) lipase 63 U/L 73-393 Below low normal Lipase [place] ( [facility]) ID Date Data Source [id number] 03/30/2021 03:53:00 AM EDT [place] ([facility]) Name Value Range Interpretation Code Description Data Claribel rce(s) Supporting Document(s) phosphorus level 2.9 mg/dL 2.5-4.9 Phosphorus Level AT [facility]) ID Date Data Source [id number] 03/30/2021 03:53:00 AM EDT [facility]) Name Value Range Interpretation Code Description Data Claribel rce(s) Supporting Document(s) glucose, fasting 332 mg/dL 70-100 Above high normal Glucose, Fas ting [place] ([facility]) blood urea nitrogen 18 mg/dL 7-18 Blood Urea Nitro gen [place] ([facility]) creatinine for GFR 1.19 mg/dL 0.55-1.30 Creatinine for GF R [place] ([facility]) glomerular filtration rate >60 Below low normal Mariza merular Filtration Rate [place] ([facility]) sodium level 140 mEq/L 136-145 Sodium Level [place] ([facility]) potassium serum 4.5 mEq/L 3.5-5.1 Potassium Serum [facility] NA ([facility]) chloride level 112 mEq/L 98-107 Above high normal Chloride Level [place] ([facility]) carbon dioxide level 8 mEq/L 21-32 Below low normal Carbon Di oxide Level [place] ([facility]) anion gap 20 mEq/L 8-16 Above high normal Anion Gap [place] ([facility]) calcium level 8.3 mg/dL 8.5-10.1 Below low normal Calcium Level AT [facility]) ID Date Data Source [id number] 03/30/2021 03:53:00 AM EDT [facility]) Name Value Range Interpretation Code Description Data Claribel rce(s) Supporting Document(s) Hemoglobin A1c/Hemoglobin.total in Blood 11.3 % Hemoglobin a1C [facility] ([facility]) estimated average glucose 278 mg/dL 60-110 Above high norm al Estimated Average Glucose [place] ([facility]) ID Date Data Source [id number] 03/30/2021 03:53:00 AM EDT [facility]) Name Value Range Interpretation Code Description Data Claribel rce(s) Supporting Document(s) venous pH 7.174 units 7.330-7.430 Below low normal Venous pH [facility] ([facility]) venous partial pressure CO2 19.8 mmHg 38.0-50.0 Below low nor mal Venous Partial Pressure CO2 [place] ([facility]) venous partial pressure O2 139.4 mmHg 30.0-50.0 Above high nor mal Venous Partial Pressure O2 [place] ([facility]) venous total CO2 7.7 mEq/L 24.0-28.0 Below low normal Venous Total CO2 [facility] ([facility]) venous HCO3 7.1 mEq/L 23.0-27.0 Below low normal Venous HCO3 [place] ([facility]) venous base excess -2.0-2.0 Below low normal Venous Base Excess [place] ([facility]) venous standard HCO3 10.4 mEq/L Venous Standard HCO3 [place] ([facility]) venous O2 saturation 98.8 % 60.0-80.0 Above high normal Venous O 2 Saturation [place] ([facility]) venous site unknown Venous Site [facility] ([facility]) ID Date Data Source [id number] 03/30/2021 03:53:00 AM EDT [place] ([facility]) Name Value Range Interpretation Code Description Data Claribel rce(s) Supporting Document(s) lipase 63 U/L 73-393 Below low normal Lipase [facility]) ID Date Data Source [id number] 03/30/2021 03:53:00 AM EDT [facility]) Name Value Range Interpretation Code Description Data Claribel rce(s) Supporting Document(s) phosphorus level 2.9 mg/dL 2.5-4.9 Phosphorus Level AT [facility] ([facility]) ID Date Data Source [id number] 03/30/2021 03:53:00 AM EDT [place] ([facility]) Name Value Range Interpretation Code Description Data Claribel rce(s) Supporting Document(s) glucose, fasting 332 mg/dL 70-100 Above high normal Glucose, Fas ting [place] ([facility]) blood urea nitrogen 18 mg/dL 7-18 Blood Urea Nitro gen [place] ([facility]) creatinine for GFR 1.19 mg/dL 0.55-1.30 Creatinine for GF R [place] ([facility]) glomerular filtration rate >60 Below low normal Mariza merular Filtration Rate [place] ([facility]) sodium level 140 mEq/L 136-145 Sodium Level [place] ([facility]) potassium serum 4.5 mEq/L 3.5-5.1 Potassium Serum [facility] NA ([facility]) chloride level 112 mEq/L 98-107 Above high normal Chloride Level [place] ([facility]) carbon dioxide level 8 mEq/L 21-32 Below low normal Carbon Di oxide Level [place] ([facility]) anion gap 20 mEq/L 8-16 Above high normal Anion Gap [place] ([facility]) calcium level 8.3 mg/dL 8.5-10.1 Below low normal Calcium Level AT [facility]) ID Date Data Source [id number] 03/30/2021 03:53:00 AM EDT [place] ([facility]) Name Value Range Interpretation Code Description Data Claribel rce(s) Supporting Document(s) Hemoglobin A1c/Hemoglobin.total in Blood 11.3 % Hemoglobin a1C [place] ([facility]) estimated average glucose 278 mg/dL 60-110 Above high norm al Estimated Average Glucose [facility]) ID Date Data Source [id number] 03/30/2021 03:53:00 AM EDT [facility] ([facility]) Name Value Range Interpretation Code Description Data Claribel rce(s) Supporting Document(s) venous pH 7.174 units 7.330-7.430 Below low normal Venous pH [facility] ([facility]) venous partial pressure CO2 19.8 mmHg 38.0-50.0 Below low nor mal Venous Partial Pressure CO2 [facility] ([facility]) venous partial pressure O2 139.4 mmHg 30.0-50.0 Above high nor mal Venous Partial Pressure O2 [place] ([facility]) venous total CO2 7.7 mEq/L 24.0-28.0 Below low normal Venous Total CO2 [facility] ([facility]) venous HCO3 7.1 mEq/L 23.0-27.0 Below low normal Venous HCO3 [place] ([facility]) venous base excess -2.0-2.0 Below low normal Venous Base Excess [place] ([facility]) venous standard HCO3 10.4 mEq/L Venous Standard HCO3 [facility] ([facility]) venous O2 saturation 98.8 % 60.0-80.0 Above high normal Venous O 2 Saturation [facility] ([facility]) venous site unknown Venous Site [facility] ([facility]) ID Date Data Source [id number] 03/30/2021 03:18:00 AM EDT [facility] ([facility]) Name Value Range Interpretation Code Description Data Claribel rce(s) Supporting Document(s) bedside glucose 292 mg/dL 70-105 Above high normal Bedside Gluco se [facility] ([facility]) ID Date Data Source [id number] 03/30/2021 03:18:00 AM EDT [facility]) Name Value Range Interpretation Code Description Data Claribel rce(s) Supporting Document(s) bedside glucose 292 mg/dL 70-105 Above high normal Bedside Gluco se [facility] ([facility]) ID Date Data Source [id number] 03/30/2021 03:18:00 AM EDT [facility] ([facility]) Name Value Range Interpretation Code Description Data Claribel rce(s) Supporting Document(s) bedside glucose 292 mg/dL 70-105 Above high normal Bedside Gluco se [facility] ([facility]) ID Date Data Source [id number] 03/30/2021 12:18:00 AM EDT [facility] ([facility]) Name Value Range Interpretation Code Description Data Claribel rce(s) Supporting Document(s) istat B-HCG < 5.0 Istat B-HCG [facility] ([facility]) ID Date Data Source [id number] 03/30/2021 12:18:00 [facility] Name Value Range Interpretation Code Description Data Claribel rce(s) Supporting Document(s) istat B-HCG < 5.0 Istat B-HCG [facility] ([facility]) ID Date Data Source [id number] 03/30/2021 12:18:00 [facility] Name Value Range Interpretation Code Description Data Claribel rce(s) Supporting Document(s) istat B-HCG < 5.0 Istat B-HCG [facility] ([facility]) ID Date Data Source [id number] 03/30/2021 12:15:00 AM EDT [facility] ([facility]) Name Value Range Interpretation Code Description Data Claribel rce(s) Supporting Document(s) istat HCT 41.0 % 38.0-51.0 Istat HCT [facility] ([facility]) istat glucose 317 mg/dL 70-105 Above high normal Istat Glucose A [facility] ([facility]) istat sodium 137 mEq/L 136-145 Istat Sodium [facility] ([facility]) istat potassium 5.1 mEq/L 3.5-5.1 Istat Potassium [facility] ([facility]) istat Ca++ 5.3 mg/dL 4.5-5.3 Istat Ca++ [facility] ([facility]) istat chloride 112 mEq/L 98-109 Above high normal Istat Chloride [facility] ([facility]) istat CO2 12.0 mm/L 23.0-27.0 Below low normal Istat CO2 [facility] ( [facility]) istat BUN 27 mg/dL 8-26 Above high normal Istat BUN [facility] ([facility]) istat creatinine 1.0 mg/dL 0.6-1.3 Istat Creatinine AT [facility]) ID Date Data Source [id number] 03/30/2021 12:15:00 AM EDT [place] ([facility]) Name Value Range Interpretation Code Description Data Claribel rce(s) Supporting Document(s) istat HCT 41.0 % 38.0-51.0 Istat HCT [facility] ([facility]) istat glucose 317 mg/dL 70-105 Above high normal Istat Glucose A [facility] ([facility]) istat sodium 137 mEq/L 136-145 Istat Sodium [facility] ([facility]) istat potassium 5.1 mEq/L 3.5-5.1 Istat Potassium [facility] ([facility]) istat Ca++ 5.3 mg/dL 4.5-5.3 Istat Ca++ [facility] ([facility]) istat chloride 112 mEq/L 98-109 Above high normal Istat Chloride [facility] ([facility]) istat CO2 12.0 mm/L 23.0-27.0 Below low normal Istat CO2 [facility] ( [facility]) istat BUN 27 mg/dL 8-26 Above high normal Istat BUN [facility] ([facility]) istat creatinine 1.0 mg/dL 0.6-1.3 Istat Creatinine AT [facility]) ID Date Data Source [id number] 03/30/2021 12:15:00 AM EDT [facility]) Name Value Range Interpretation Code Description Data Claribel rce(s) Supporting Document(s) istat HCT 41.0 % 38.0-51.0 Istat HCT [place] ([facility]) istat glucose 317 mg/dL 70-105 Above high normal Istat Glucose A [facility] ([facility]) istat sodium 137 mEq/L 136-145 Istat Sodium [facility] ([facility]) istat potassium 5.1 mEq/L 3.5-5.1 Istat Potassium [facility] ([facility]) istat Ca++ 5.3 mg/dL 4.5-5.3 Istat Ca++ [place] ([facility]) istat chloride 112 mEq/L 98-109 Above high normal Istat Chloride [place] ([facility]) istat CO2 12.0 mm/L 23.0-27.0 Below low normal Istat CO2 [place] ( [facility]) istat BUN 27 mg/dL 8-26 Above high normal Istat BUN [place] ([facility]) istat creatinine 1.0 mg/dL 0.6-1.3 Istat Creatinine AT [facility]) ID Date Data Source [id number] 03/29/2021 11:54:00 PM EDT [place] ([facility]) Name Value Range Interpretation Code Description Data Claribel rce(s) Supporting Document(s) appearance, urine rfx clear clear Appearance, Ur ine Rfx [place] ([facility]) color, urine rfx yellow yellow Color, Urine Rfx AT [facility] ([facility]) pH,urine rfx 6.0 units 5.0-9.0 pH,urine Rfx [place] ([facility]) specific gravity ur auto rfx 1.002-1.035 Specif ic [place] Ur Auto Rfx [facility] ([facility]) protein, urine auto rfx 3+ negative Above high normal Prote in, Urine Auto Rfx [place] ([facility]) glucose, urine (UA) auto rfx 3+ negative Above high n ormal Glucose, Urine (UA) Auto Rfx [facility] ([facility]) ketone, urine auto rfx 2+ negative Above high normal Ketone , Urine Auto Rfx [place] ([facility]) urobilinogen, urine auto rfx 0.2 mg/dL 0.0-2.0 Urobili nogen, Urine Auto Rfx [place] ([facility]) bilirubin, urine auto rfx negative negative Bilirubin, Urine Auto Rfx [place] ([facility]) nitrite, urine auto rfx negative negative Nitrite, Uri ne Auto Rfx [place] ([facility]) leukocyte esterase ur auto rfx negative negative Leukocyte Esterase Ur Auto Rfx [place] ([facility]) blood, urine blood rfx 1+ negative Above high normal Blood, Urine Blood Rfx [place] ([facility]) WBC, urine auto rfx 1 /hpf 0-3 WBC, Urine Auto Rfx [place] ([facility]) RBC, urine auto rfx 3 /hpf 0-3 RBC, Urine Auto Rfx [place] ([facility]) bacteria, urine auto rfx negative negative Bacteria, U rine Auto Rfx [place] ([facility]) squam epithelial cell ur aurfx 0 /hpf 0-6 Squam Epithelial Cell Ur Aurfx [place] ([facility]) mucus, urine rfx small negative Mucus, Urine Rfx AT [facility] ([facility]) hyaline cast, urine auto rfx 8 /lpf 0-1 Hyaline Cast, Urine Auto Rfx [place] ([facility]) ID Date Data Source [id number] 03/29/2021 11:54:00 PM EDT [place] ([facility]) Name Value Range Interpretation Code Description Data Claribel rce(s) Supporting Document(s) acetone/ketone > 46.00 <2.81 Above high normal Acetone/ketone [facility]) ID Date Data Source [id number] 03/29/2021 11:54:00 PM EDT [facility] ([facility]) Name Value Range Interpretation Code Description Data Claribel rce(s) Supporting Document(s) white blood count 5.8 10 4.0-10.0 White Blood Count [facility] ([facility]) red blood count 4.70 10 4.00-5.40 Red Blood Count [facility] ([facility]) hemoglobin 13.8 g/dL 12.0-15.5 Hemoglobin [facility] ([facility]) hematocrit 42.5 % 36.0-47.0 Hematocrit [facility] ([facility]) mean corpuscular volume 90.4 fL 80.0-96.0 Mean Corpusc ular Volume [facility] ([facility]) mean corpuscular hemoglobin 29.4 pg 27.0-33.0 Mean Cor puscular Hemoglobin [facility] ([facility]) mean corpuscular HGB conc 32.5 g/dL 32.0-36.5 Mean Corpu scular HGB Conc [facility] ([facility]) red cell distribution width 12.0 % 11.5-14.5 Red Cell Distribution Width [place] ([facility]) platelet count, automated 295 10 150-450 Platelet C ount, Automated [facility] ([facility]) neutrophils % 80.7 % 36.0-66.0 Above high normal Neutrophils % A [facility] ([facility]) lymph % 14.0 % 24.0-44.0 Below low normal Lymph % [facility] ( [facility]) mono % 4.3 % 2.0-8.0 [place] % [facility] ([facility]) eos % 0.0 % 0.0-3.0 Eos % [facility] ([facility]) baso % 0.3 % 0.0-1.0 Baso % [facility] ([facility]) immature granulocyte % 0.7 % 0-3.0 Immature Gran ulocyte % [facility] ([facility]) nucleated red blood cell % 0.0 % 0-0 Nucleated Red Blood Cell % [facility] ([facility]) neutrophils # 4.7 10 1.5-8.5 Neutrophils # [facility] ( [facility]) lymph # 0.8 10 1.5-5.0 Below low normal Lymph # [facility] ( [facility]) mono # 0.3 10 0.0-0.8 [place] # [facility] ([facility]) eos # 0.0 10 0.0-0.5 Eos # [facility] ([facility]) baso # 0.0 10 0.0-0.2 Baso # [facility] ([facility]) ID Date Data Source [id number] 03/29/2021 11:54:00 PM EDT [place] ([facility]) Name Value Range Interpretation Code Description Data Claribel rce(s) Supporting Document(s) venous pH 7.148 units 7.330-7.430 Below low normal Venous pH [facility] ([facility]) venous partial pressure CO2 26.3 mmHg 38.0-50.0 Below low nor mal Venous Partial Pressure CO2 [place] ([facility]) venous partial pressure O2 43.7 mmHg 30.0-50.0 Venous Pa rtial Pressure O2 [facility] ([facility]) venous total CO2 9.7 mEq/L 24.0-28.0 Below low normal Venous Total CO2 [place] ([facility]) venous HCO3 8.9 mEq/L 23.0-27.0 Below low normal Venous HCO3 [facility] ([facility]) venous base excess -2.0-2.0 Below low normal Venous Base Excess [facility] ([facility]) venous standard HCO3 10.8 mEq/L Venous Standard HCO3 [facility] ([facility]) venous O2 saturation 77.5 % 60.0-80.0 Venous O2 Satur ation [facility] ([facility]) ID Date Data Source [id number] 03/29/2021 11:54:00 PM EDT [place] ([facility]) Name Value Range Interpretation Code Description Data Claribel rce(s) Supporting Document(s) acetone/ketone > 46.00 <2.81 Above high normal Acetone/ketone [facility] ([facility]) ID Date Data Source [id number] 03/29/2021 11:54:00 PM EDT [facility] ([facility]) Name Value Range Interpretation Code Description Data Claribel rce(s) Supporting Document(s) white blood count 5.8 10 4.0-10.0 White Blood Count [facility] ([facility]) red blood count 4.70 10 4.00-5.40 Red Blood Count [facility] ([facility]) hemoglobin 13.8 g/dL 12.0-15.5 Hemoglobin [facility] ([facility]) mean corpuscular volume 90.4 fL 80.0-96.0 Mean Corpusc ular Volume [facility] ([facility]) hematocrit 42.5 % 36.0-47.0 Hematocrit [facility] ([facility]) mean corpuscular hemoglobin 29.4 pg 27.0-33.0 Mean Cor puscular Hemoglobin [facility] ([facility]) mean corpuscular HGB conc 32.5 g/dL 32.0-36.5 Mean Corpu scular HGB Conc [facility] ([facility]) red cell distribution width 12.0 % 11.5-14.5 Red Cell Distribution Width [facility] ([facility]) platelet count, automated 295 10 150-450 Platelet C ount, Automated [facility] ([facility]) neutrophils % 80.7 % 36.0-66.0 Above high normal Neutrophils % A [facility] ([facility]) lymph % 14.0 % 24.0-44.0 Below low normal Lymph % [facility] ( [facility]) eos % 0.0 % 0.0-3.0 Eos % [facility] ([facility]) mono % 4.3 % 2.0-8.0 [place] % [facility] ([facility]) baso % 0.3 % 0.0-1.0 Baso % [facility] ([facility]) immature granulocyte % 0.7 % 0-3.0 Immature Gran ulocyte % [facility] ([facility]) nucleated red blood cell % 0.0 % 0-0 Nucleated Red Blood Cell % [facility] ([facility]) neutrophils # 4.7 10 1.5-8.5 Neutrophils # [facility] ( [facility]) lymph # 0.8 10 1.5-5.0 Below low normal Lymph # [facility] ( [facility]) mono # 0.3 10 0.0-0.8 [place] # [facility] ([facility]) eos # 0.0 10 0.0-0.5 Eos # [facility] ([facility]) baso # 0.0 10 0.0-0.2 Baso # [facility] ([facility]) ID Date Data Source [id number] 03/29/2021 11:54:00 PM EDT [facility] ([facility]) Name Value Range Interpretation Code Description Data Claribel rce(s) Supporting Document(s) venous pH 7.148 units 7.330-7.430 Below low normal Venous pH [facility] ([facility]) venous partial pressure CO2 26.3 mmHg 38.0-50.0 Below low nor mal Venous Partial Pressure CO2 [facility] ([facility]) venous partial pressure O2 43.7 mmHg 30.0-50.0 Venous Pa rtial Pressure O2 [facility] ([facility]) venous total CO2 9.7 mEq/L 24.0-28.0 Below low normal Venous Total CO2 [facility] ([facility]) venous base excess -2.0-2.0 Below low normal Venous Base Excess [facility] ([facility]) venous HCO3 8.9 mEq/L 23.0-27.0 Below low normal Venous HCO3 [facility] ([facility]) venous standard HCO3 10.8 mEq/L Venous Standard HCO3 [facility] ([facility]) venous O2 saturation 77.5 % 60.0-80.0 Venous O2 Satur ation [facility] ([facility]) ID Date Data Source [id number] 03/29/2021 11:54:00 PM EDT [facility] ([facility]) Name Value Range Interpretation Code Description Data Claribel rce(s) Supporting Document(s) appearance, urine rfx clear clear Appearance, Ur ine Rfx [facility] ([facility]) color, urine rfx yellow yellow Color, Urine Rfx AT [facility] ([facility]) pH,urine rfx 6.0 units 5.0-9.0 pH,urine Rfx [facility] (No [facility]) specific gravity ur auto rfx 1.002-1.035 Specif ic [place] Ur Auto Rfx [facility] ([facility]) protein, urine auto rfx 3+ negative Above high normal Prote in, Urine Auto Rfx [place] ([facility]) glucose, urine (UA) auto rfx 3+ negative Above high n ormal Glucose, Urine (UA) Auto Rfx [place] ([facility]) ketone, urine auto rfx 2+ negative Above high normal Ketone , Urine Auto Rfx [place] ([facility]) urobilinogen, urine auto rfx 0.2 mg/dL 0.0-2.0 Urobili nogen, Urine Auto Rfx [facility] ([facility]) bilirubin, urine auto rfx negative negative Bilirubin, Urine Auto Rfx [place] ([facility]) nitrite, urine auto rfx negative negative Nitrite, Uri ne Auto Rfx [place] ([facility]) leukocyte esterase ur auto rfx negative negative Leukocyte Esterase Ur Auto Rfx [place] ([facility]) blood, urine blood rfx 1+ negative Above high normal Blood, Urine Blood Rfx [place] ([facility]) WBC, urine auto rfx 1 /hpf 0-3 WBC, Urine Auto Rfx [facility] ([facility]) RBC, urine auto rfx 3 /hpf 0-3 RBC, Urine Auto Rfx [place] ([facility]) bacteria, urine auto rfx negative negative Bacteria, U rine Auto Rfx [place] ([facility]) squam epithelial cell ur aurfx 0 /hpf 0-6 Squam Epithelial Cell Ur Aurfx [place] ([facility]) mucus, urine rfx small negative Mucus, Urine Rfx AT [facility] ([facility]) hyaline cast, urine auto rfx 8 /lpf 0-1 Hyaline Cast, Urine Auto Rfx [place] ([facility]) ID Date Data Source [id number] 03/29/2021 11:54:00 PM EDT [facility] ([facility]) Name Value Range Interpretation Code Description Data Claribel rce(s) Supporting Document(s) acetone/ketone > 46.00 <2.81 Above high normal Acetone/ketone [facility] ([facility]) ID Date Data Source [id number] 03/29/2021 11:54:00 PM EDT [facility] ([facility]) Name Value Range Interpretation Code Description Data Claribel rce(s) Supporting Document(s) white blood count 5.8 10 4.0-10.0 White Blood Count [facility] ([facility]) red blood count 4.70 10 4.00-5.40 Red Blood Count [facility] ([facility]) hemoglobin 13.8 g/dL 12.0-15.5 Hemoglobin [facility] ([facility]) hematocrit 42.5 % 36.0-47.0 Hematocrit [facility] ([facility]) mean corpuscular volume 90.4 fL 80.0-96.0 Mean Corpusc ular Volume [facility] ([facility]) mean corpuscular hemoglobin 29.4 pg 27.0-33.0 Mean Cor puscular Hemoglobin [facility] ([facility]) mean corpuscular HGB conc 32.5 g/dL 32.0-36.5 Mean Corpu scular HGB Conc [facility] ([facility]) red cell distribution width 12.0 % 11.5-14.5 Red Cell Distribution Width [facility] ([facility]) platelet count, automated 295 10 150-450 Platelet C ount, Automated [facility] ([facility]) neutrophils % 80.7 % 36.0-66.0 Above high normal Neutrophils % A [facility] ([facility]) lymph % 14.0 % 24.0-44.0 Below low normal Lymph % [facility] ( [facility]) mono % 4.3 % 2.0-8.0 [place] % [facility] ([facility]) eos % 0.0 % 0.0-3.0 Eos % [facility] ([facility]) baso % 0.3 % 0.0-1.0 Baso % [facility] ([facility]) immature granulocyte % 0.7 % 0-3.0 Immature Gran ulocyte % [facility] ([facility]) nucleated red blood cell % 0.0 % 0-0 Nucleated Red Blood Cell % [facility] ([facility]) lymph # 0.8 10 1.5-5.0 Below low normal Lymph # [facility] ( [facility]) neutrophils # 4.7 10 1.5-8.5 Neutrophils # [facility] ( [facility]) mono # 0.3 10 0.0-0.8 [place] # [facility] ([facility]) eos # 0.0 10 0.0-0.5 Eos # [facility] ([facility]) baso # 0.0 10 0.0-0.2 Baso # [facility] ([facility]) ID Date Data Source [id number] 03/29/2021 11:54:00 PM EDT [place] ([facility]) Name Value Range Interpretation Code Description Data Claribel rce(s) Supporting Document(s) venous pH 7.148 units 7.330-7.430 Below low normal Venous pH [facility] ([facility]) venous partial pressure CO2 26.3 mmHg 38.0-50.0 Below low nor mal Venous Partial Pressure CO2 [facility] ([facility]) venous partial pressure O2 43.7 mmHg 30.0-50.0 Venous Pa rtial Pressure O2 [facility] ([facility]) venous total CO2 9.7 mEq/L 24.0-28.0 Below low normal Venous Total CO2 [facility] ([facility]) venous HCO3 8.9 mEq/L 23.0-27.0 Below low normal Venous HCO3 [facility] ([facility]) venous base excess -2.0-2.0 Below low normal Venous Base Excess [facility] ([facility]) venous standard HCO3 10.8 mEq/L Venous Standard HCO3 [facility] ([facility]) venous O2 saturation 77.5 % 60.0-80.0 Venous O2 Satur ation [facility] ([facility]) ID Date Data Source [id number] 03/29/2021 11:54:00 PM EDT [place] ([facility]) Name Value Range Interpretation Code Description Data Claribel rce(s) Supporting Document(s) color, urine rfx yellow yellow Color, Urine Rfx AT [place] ([facility]) appearance, urine rfx clear clear Appearance, Ur ine Rfx [place] ([facility]) pH,urine rfx 6.0 units 5.0-9.0 pH,urine Rfx [facility] (No [facility]) specific gravity ur auto rfx 1.002-1.035 Specif ic [place] Ur Auto Rfx [place] ([facility]) protein, urine auto rfx 3+ negative Above high normal Prote in, Urine Auto Rfx [place] ([facility]) glucose, urine (UA) auto rfx 3+ negative Above high n ormal Glucose, Urine (UA) Auto Rfx [place] ([facility]) ketone, urine auto rfx 2+ negative Above high normal Ketone , Urine Auto Rfx [place] ([facility]) bilirubin, urine auto rfx negative negative Bilirubin, Urine Auto Rfx [place] ([facility]) urobilinogen, urine auto rfx 0.2 mg/dL 0.0-2.0 Urobili nogen, Urine Auto Rfx [place] ([facility]) nitrite, urine auto rfx negative negative Nitrite, Uri ne Auto Rfx [place] ([facility]) leukocyte esterase ur auto rfx negative negative Leukocyte Esterase Ur Auto Rfx [place] ([facility]) blood, urine blood rfx 1+ negative Above high normal Blood, Urine Blood Rfx [place] ([facility]) WBC, urine auto rfx 1 /hpf 0-3 WBC, Urine Auto Rfx [place] ([facility]) RBC, urine auto rfx 3 /hpf 0-3 RBC, Urine Auto Rfx [place] ([facility]) bacteria, urine auto rfx negative negative Bacteria, U rine Auto Rfx [place] ([facility]) squam epithelial cell ur aurfx 0 /hpf 0-6 Squam Epithelial Cell Ur Aurfx [place] ([facility]) mucus, urine rfx small negative Mucus, Urine Rfx AT [facility] ([facility]) hyaline cast, urine auto rfx 8 /lpf 0-1 Hyaline Cast, Urine Auto Rfx [place] ([facility]) ID Date Data Source [id number] 03/29/2021 09:58:00 PM EDT [facility]) Name Value Range Interpretation Code Description Data Claribel rce(s) Supporting Document(s) ID Date Data Source [id number] 03/29/2021 09:58:00 PM EDT [place] ([facility]) Name Value Range Interpretation Code Description Data Claribel rce(s) Supporting Document(s) ID Date Data Source [id number] 03/29/2021 09:58:00 PM EDT [facility] Name Value Range Interpretation Code Description Data Claribel rce(s) Supporting Document(s) SARS-CoV-2 (COVID 19) NEGATIVE - SARS-CoV-2 (COVID19) [facility] This lab was ordered by [facility] a nd reported by [facility]. ID Date Data Source [id number] 03/29/2021 09:58:00 PM EDT [facility]) Name Value Range Interpretation Code Description Data Claribel rce(s) Supporting Document(s) ID Date Data Source [id number] 03/26/2021 12:00:00 AM EDT [facility] Name Value Range Interpretation Code Description Data Claribel rce(s) Supporting Document(s) SARS-CoV2 Rapid Antigen Negative [facility] This lab was ordered by [facility] and reported by [facility]. 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 [file] ID Date Data Source [id number] 02/20/2021 01:30:12 PM EDT [facility] Name Value Range Interpretation Code Description Data Claribel rce(s) Supporting Document(s) Progress Note [facility] [id number] [file] [id number] ID Date Data Source [id number] 12/24/2020 12:00:00 AM EST [facility] Name Value Range Interpretation Code Description Data Claribel rce(s) Supporting Document(s) SARS coronavirus 2 RNA [Presence] in Res piratory specimen by ANDREE with probe detection NEGATIVE [facility] This lab was ordered by [facility] and reported by [facility]. ID Date Data Source [id number] 12/13/2020 09:35:00 AM EST [facility] ([facility]) Name Value Range Interpretation Code Description Data Claribel rce(s) Supporting Document(s) glucose, fasting 270 mg/dL 70-100 Above high normal Glucose, Fas ting [facility] ([facility]) blood urea nitrogen 13 mg/dL 7-18 Blood Urea Nitro gen [facility] ([facility]) creatinine for GFR 1.13 mg/dL 0.55-1.30 Creatinine for GF R [place] ([facility]) glomerular filtration rate >60 Below low normal Mariza merular Filtration Rate [facility] ([facility]) sodium level 140 mEq/L 136-145 Sodium Level [facility] ([facility]) potassium serum 4.0 mEq/L 3.5-5.1 Potassium Serum [facility] NA ([facility]) chloride level 111 mEq/L 98-107 Above high normal Chloride Level [facility] ([facility]) carbon dioxide level 19 mEq/L 21-32 Below low normal Carbon Di oxide Level [facility] ([facility]) anion gap 10 mEq/L 8-16 Anion Gap [facility] ([facility]) calcium level 9.4 mg/dL 8.5-10.1 Calcium Level [facility] ( [facility]) ID Date Data Source [id number] 12/13/2020 09:35:00 AM EST [facility] ([facility]) Name Value Range Interpretation Code Description Data Claribel rce(s) Supporting Document(s) white blood count 3.4 10 4.0-10.0 Below low normal White Blood Count [facility] ([facility]) red blood count 4.04 10 4.00-5.40 Red Blood Count [facility] ([facility]) hemoglobin 11.8 g/dL 12.0-15.5 Below low normal Hemoglobin [facility] ( [facility]) hematocrit 35.7 % 36.0-47.0 Below low normal Hematocrit [facility] ( [facility]) mean corpuscular volume 88.4 fL 80.0-96.0 Mean Corpusc ular Volume [facility] ([facility]) mean corpuscular hemoglobin 29.2 pg 27.0-33.0 Mean Cor puscular Hemoglobin [facility] ([facility]) mean corpuscular HGB conc 33.1 g/dL 32.0-36.5 Mean Corpu scular HGB Conc [facility] ([facility]) red cell distribution width 13.2 % 11.5-14.5 Red Cell Distribution Width [facility] ([facility]) platelet count, automated 162 10 150-450 Platelet C ount, Automated [facility] ([facility]) nucleated red blood cell % 0.0 % 0-0 Nucleated Red Blood Cell % [facility] ([facility]) ID Date Data Source [id number] 12/13/2020 09:35:00 AM EST [facility] ([facility]) Name Value Range Interpretation Code Description Data Claribel rce(s) Supporting Document(s) glucose, fasting 270 mg/dL 70-100 Above high normal Glucose, Fas ting [facility] ([facility]) blood urea nitrogen 13 mg/dL 7-18 Blood Urea Nitro gen [facility] ([facility]) creatinine for GFR 1.13 mg/dL 0.55-1.30 Creatinine for GF R [facility] ([facility]) glomerular filtration rate >60 Below low normal Mariza merular Filtration Rate [facility] ([facility]) sodium level 140 mEq/L 136-145 Sodium Level [facility] ([facility]) potassium serum 4.0 mEq/L 3.5-5.1 Potassium Serum [facility] ([facility]) chloride level 111 mEq/L 98-107 Above high normal Chloride Level [place] ([facility]) carbon dioxide level 19 mEq/L 21-32 Below low normal Carbon Di oxide Level [facility] ([facility]) anion gap 10 mEq/L 8-16 Anion Gap [facility] ([facility]) calcium level 9.4 mg/dL 8.5-10.1 Calcium Level [facility] ( [facility]) ID Date Data Source [id number] 12/13/2020 09:35:00 AM EST [facility] ([facility]) Name Value Range Interpretation Code Description Data Claribel rce(s) Supporting Document(s) white blood count 3.4 10 4.0-10.0 Below low normal White Blood Count [facility] ([facility]) red blood count 4.04 10 4.00-5.40 Red Blood Count [facility] ([facility]) hemoglobin 11.8 g/dL 12.0-15.5 Below low normal Hemoglobin [facility] ( [facility]) hematocrit 35.7 % 36.0-47.0 Below low normal Hematocrit [facility] ( [facility]) mean corpuscular volume 88.4 fL 80.0-96.0 Mean Corpusc ular Volume [facility] ([facility]) mean corpuscular hemoglobin 29.2 pg 27.0-33.0 Mean Cor puscular Hemoglobin [place] ([facility]) mean corpuscular HGB conc 33.1 g/dL 32.0-36.5 Mean Corpu scular HGB Conc [facility] ([facility]) red cell distribution width 13.2 % 11.5-14.5 Red Cell Distribution Width [facility] ([facility]) platelet count, automated 162 10 150-450 Platelet C ount, Automated [facility] ([facility]) nucleated red blood cell % 0.0 % 0-0 Nucleated Red Blood Cell % [place] ([facility]) ID Date Data Source [id number] 12/13/2020 09:35:00 AM EST [place] ([facility]) Name Value Range Interpretation Code Description Data Claribel rce(s) Supporting Document(s) glucose, fasting 270 mg/dL 70-100 Above high normal Glucose, Fas ting [place] ([facility]) blood urea nitrogen 13 mg/dL 7-18 Blood Urea Nitro gen [place] ([facility]) creatinine for GFR 1.13 mg/dL 0.55-1.30 Creatinine for GF R [place] ([facility]) glomerular filtration rate >60 Below low normal Mariza merular Filtration Rate [facility] ([facility]) sodium level 140 mEq/L 136-145 Sodium Level [facility] ([facility]) potassium serum 4.0 mEq/L 3.5-5.1 Potassium Serum [facility] NA ([facility]) chloride level 111 mEq/L 98-107 Above high normal Chloride Level [place] ([facility]) carbon dioxide level 19 mEq/L 21-32 Below low normal Carbon Di oxide Level [place] ([facility]) anion gap 10 mEq/L 8-16 Anion Gap [facility] ([facility]) calcium level 9.4 mg/dL 8.5-10.1 Calcium Level [place] ( [facility]) ID Date Data Source [id number] 12/13/2020 09:35:00 AM [place] [facility] ([facility]) Name Value Range Interpretation Code Description Data Claribel rce(s) Supporting Document(s) white blood count 3.4 10 4.0-10.0 Below low normal White Blood Count [facility] ([facility]) red blood count 4.04 10 4.00-5.40 Red Blood Count [facility] ([facility]) hemoglobin 11.8 g/dL 12.0-15.5 Below low normal Hemoglobin [facility] ( [facility]) hematocrit 35.7 % 36.0-47.0 Below low normal Hematocrit [place] ( [facility]) mean corpuscular volume 88.4 fL 80.0-96.0 Mean Corpusc ular Volume [place] ([facility]) mean corpuscular hemoglobin 29.2 pg 27.0-33.0 Mean Cor puscular Hemoglobin [place] ([facility]) mean corpuscular HGB conc 33.1 g/dL 32.0-36.5 Mean Corpu scular HGB Conc [place] ([facility]) red cell distribution width 13.2 % 11.5-14.5 Red Cell Distribution Width [place] ([facility]) platelet count, automated 162 10 150-450 Platelet C ount, Automated [place] ([facility]) nucleated red blood cell % 0.0 % 0-0 Nucleated Red Blood Cell % [place] ([facility]) ID Date Data Source [id number] 12/13/2020 09:35:00 AM [place] ([facility]) Name Value Range Interpretation Code Description Data Claribel rce(s) Supporting Document(s) glucose, fasting 270 mg/dL 70-100 Above high normal Glucose, Fas ting [place] ([facility]) blood urea nitrogen 13 mg/dL 7-18 Blood Urea Nitro gen [place] ([facility]) creatinine for GFR 1.13 mg/dL 0.55-1.30 Creatinine for GF R [place] ([facility]) glomerular filtration rate >60 Below low normal Mariza merular Filtration Rate [facility] ([facility]) sodium level 140 mEq/L 136-145 Sodium Level [facility] ([facility]) potassium serum 4.0 mEq/L 3.5-5.1 Potassium Serum [facility] NA ([facility]) chloride level 111 mEq/L 98-107 Above high normal Chloride Level [facility] ([facility]) carbon dioxide level 19 mEq/L 21-32 Below low normal Carbon Di oxide Level [facility] ([facility]) anion gap 10 mEq/L 8-16 Anion Gap [facility] ([facility]) calcium level 9.4 mg/dL 8.5-10.1 Calcium Level [facility] ( [facility]) ID Date Data Source [id number] 12/13/2020 09:35:00 AM EST [facility]) Name Value Range Interpretation Code Description Data Claribel rce(s) Supporting Document(s) white blood count 3.4 10 4.0-10.0 Below low normal White Blood Count [facility] ([facility]) red blood count 4.04 10 4.00-5.40 Red Blood Count [facility] ([facility]) hemoglobin 11.8 g/dL 12.0-15.5 Below low normal Hemoglobin [facility] ( [facility]) hematocrit 35.7 % 36.0-47.0 Below low normal Hematocrit [facility] ( [facility]) mean corpuscular volume 88.4 fL 80.0-96.0 Mean Corpusc ular Volume [facility] ([facility]) mean corpuscular hemoglobin 29.2 pg 27.0-33.0 Mean Cor puscular Hemoglobin [facility] ([facility]) mean corpuscular HGB conc 33.1 g/dL 32.0-36.5 Mean Corpu scular HGB Conc [facility] ([facility]) red cell distribution width 13.2 % 11.5-14.5 Red Cell Distribution Width [facility] ([facility]) platelet count, automated 162 10 150-450 Platelet C ount, Automated [facility] ([facility]) nucleated red blood cell % 0.0 % 0-0 Nucleated Red Blood Cell % [facility] ([facility]) ID Date Data Source [id number] 12/13/2020 09:35:00 AM [place] ([facility]) Name Value Range Interpretation Code Description Data Claribel rce(s) Supporting Document(s) glucose, fasting 270 mg/dL 70-100 Above high normal Glucose, Fas ting [facility] ([facility]) blood urea nitrogen 13 mg/dL 7-18 Blood Urea Nitro gen [facility] ([facility]) creatinine for GFR 1.13 mg/dL 0.55-1.30 Creatinine for GF R [facility] ([facility]) glomerular filtration rate >60 Below low normal Mariza merular Filtration Rate [facility] ([facility]) sodium level 140 mEq/L 136-145 Sodium Level [facility] ([facility]) potassium serum 4.0 mEq/L 3.5-5.1 Potassium Serum [facility] NA ([facility]) chloride level 111 mEq/L 98-107 Above high normal Chloride Level [place] ([facility]) carbon dioxide level 19 mEq/L 21-32 Below low normal Carbon Di oxide Level [facility] ([facility]) anion gap 10 mEq/L 8-16 Anion Gap [facility] ([facility]) calcium level 9.4 mg/dL 8.5-10.1 Calcium Level [facility] ( [facility]) ID Date Data Source [id number] 12/13/2020 09:35:00 AM EST [facility] ([facility]) Name Value Range Interpretation Code Description Data Claribel rce(s) Supporting Document(s) white blood count 3.4 10 4.0-10.0 Below low normal White Blood Count [facility] ([facility]) red blood count 4.04 10 4.00-5.40 Red Blood Count [facility] NA ([facility]) hemoglobin 11.8 g/dL 12.0-15.5 Below low normal Hemoglobin [facility] ( [facility]) hematocrit 35.7 % 36.0-47.0 Below low normal Hematocrit [facility] ( [facility]) mean corpuscular volume 88.4 fL 80.0-96.0 Mean Corpusc ular Volume [facility] ([facility]) mean corpuscular hemoglobin 29.2 pg 27.0-33.0 Mean Cor puscular Hemoglobin [place] ([facility]) red cell distribution width 13.2 % 11.5-14.5 Red Cell Distribution Width [facility] ([facility]) mean corpuscular HGB conc 33.1 g/dL 32.0-36.5 Mean Corpu scular HGB Conc [facility] ([facility]) platelet count, automated 162 10 150-450 Platelet C ount, Automated [facility] ([facility]) nucleated red blood cell % 0.0 % 0-0 Nucleated Red Blood Cell % [place] ([facility]) ID Date Data Source [id number] 12/13/2020 09:35:00 AM EST [facility]) Name Value Range Interpretation Code Description Data Claribel rce(s) Supporting Document(s) glucose, fasting 270 mg/dL 70-100 Above high normal Glucose, Fas ting [place] ([facility]) blood urea nitrogen 13 mg/dL 7-18 Blood Urea Nitro gen [place] ([facility]) creatinine for GFR 1.13 mg/dL 0.55-1.30 Creatinine for GF R [place] ([facility]) glomerular filtration rate >60 Below low normal Mariza merular Filtration Rate [facility] ([facility]) sodium level 140 mEq/L 136-145 Sodium Level [facility] (No [facility]) chloride level 111 mEq/L 98-107 Above high normal Chloride Level [place] ([facility]) potassium serum 4.0 mEq/L 3.5-5.1 Potassium Serum ATH NA [facility]) carbon dioxide level 19 mEq/L 21-32 Below low normal Carbon Di oxide Level [place] ([facility]) anion gap 10 mEq/L 8-16 Anion Gap [place] ([facility]) calcium level 9.4 mg/dL 8.5-10.1 Calcium Level [place] ( [facility]) ID Date Data Source [id number] 12/13/2020 09:35:00 AM EST [facility] ([facility]) Name Value Range Interpretation Code Description Data Claribel rce(s) Supporting Document(s) white blood count 3.4 10 4.0-10.0 Below low normal White Blood Count [facility] ([facility]) red blood count 4.04 10 4.00-5.40 Red Blood Count [facility] ([facility]) hemoglobin 11.8 g/dL 12.0-15.5 Below low normal Hemoglobin [facility] ( [facility]) hematocrit 35.7 % 36.0-47.0 Below low normal Hematocrit [facility] ( [facility]) mean corpuscular volume 88.4 fL 80.0-96.0 Mean Corpusc ular Volume [facility] ([facility]) mean corpuscular hemoglobin 29.2 pg 27.0-33.0 Mean Cor puscular Hemoglobin [facility] ([facility]) mean corpuscular HGB conc 33.1 g/dL 32.0-36.5 Mean Corpu scular HGB Conc [facility] ([facility]) red cell distribution width 13.2 % 11.5-14.5 Red Cell Distribution Width [facility] ([facility]) platelet count, automated 162 10 150-450 Platelet C ount, Automated [facility] ([facility]) nucleated red blood cell % 0.0 % 0-0 Nucleated Red Blood Cell % [facility] ([facility]) ID Date Data Source [id number] 12/13/2020 07:31:00 AM EST [facility] ([facility]) Name Value Range Interpretation Code Description Data Claribel rce(s) Supporting Document(s) bedside glucose 300 mg/dL 70-105 Above high normal Bedside Gluco se [facility] ([facility]) ID Date Data Source [id number] 12/13/2020 07:31:00 AM EST [facility] ([facility]) Name Value Range Interpretation Code Description Data Claribel rce(s) Supporting Document(s) bedside glucose 300 mg/dL 70-105 Above high normal Bedside Gluco se [facility] ([facility]) ID Date Data Source [id number] 12/13/2020 07:31:00 AM EST [facility] ([facility]) Name Value Range Interpretation Code Description Data Claribel rce(s) Supporting Document(s) bedside glucose 300 mg/dL 70-105 Above high normal Bedside Gluco se [facility] ([facility]) ID Date Data Source [id number] 12/13/2020 07:31:00 AM EST [facility]) Name Value Range Interpretation Code Description Data Claribel rce(s) Supporting Document(s) bedside glucose 300 mg/dL 70-105 Above high normal [facility] Date Data Source [id number] 12/13/2020 07:31:00 AM EST [facility]) Name Value Range Interpretation Code Description Data Claribel rce(s) Supporting Document(s) bedside glucose 300 mg/dL 70-105 Above high normal [facility] ID Date Data Source [id number] 12/13/2020 07:31:00 AM EST [facility] ([facility]) Name Value Range Interpretation Code Description Data Claribel rce(s) Supporting Document(s) bedside glucose 300 mg/dL 70-105 Above high normal [facility] ID Date Data Source [id number] 12/12/2020 08:46:00 PM EST [facility]) Name Value Range Interpretation Code Description Data Claribel rce(s) Supporting Document(s) bedside glucose 223 mg/dL 70-105 Above high normal [facility] ID Date Data Source [id number] 12/12/2020 08:46:00 PM EST [facility] ([facility]) Name Value Range Interpretation Code Description Data Claribel rce(s) Supporting Document(s) bedside glucose 223 mg/dL 70-105 Above high normal Bedside Gluco se [facility] ([facility]) ID Date Data Source [id number] 12/12/2020 08:46:00 PM EST [facility] ([facility]) Name Value Range Interpretation Code Description Data Claribel rce(s) Supporting Document(s) bedside glucose 223 mg/dL 70-105 Above high normal Bedside Gluco se [facility] ([facility]) ID Date Data Source [id number] 12/12/2020 08:46:00 PM EST [facility] ([facility]) Name Value Range Interpretation Code Description Data Claribel rce(s) Supporting Document(s) bedside glucose 223 mg/dL 70-105 Above high normal Bedside Gluco se [facility] ([facility]) ID Date Data Source [id number] 12/12/2020 08:46:00 PM EST [facility] ([facility]) Name Value Range Interpretation Code Description Data Claribel rce(s) Supporting Document(s) bedside glucose 223 mg/dL 70-105 Above high normal Bedside Gluco se [facility] ([facility]) ID Date Data Source [id number] 12/12/2020 08:46:00 PM EST [facility] ([facility]) Name Value Range Interpretation Code Description Data Claribel rce(s) Supporting Document(s) bedside glucose 223 mg/dL 70-105 Above high normal Bedside Gluco se [facility] ([facility]) ID Date Data Source [id number] 12/12/2020 04:33:00 PM EST [facility] ([facility]) Name Value Range Interpretation Code Description Data Claribel rce(s) Supporting Document(s) bedside glucose 264 mg/dL 70-105 Above high normal Bedside Gluco se [facility] ([facility]) ID Date Data Source [id number] 12/12/2020 04:33:00 PM EST [facility] ([facility]) Name Value Range Interpretation Code Description Data Claribel rce(s) Supporting Document(s) bedside glucose 264 mg/dL 70-105 Above high normal Bedside Gluco se [facility] ([facility]) ID Date Data Source [id number] 12/12/2020 04:33:00 PM EST [facility] ([facility]) Name Value Range Interpretation Code Description Data Claribel rce(s) Supporting Document(s) bedside glucose 264 mg/dL 70-105 Above high normal Bedside Gluco se [facility] ([facility]) ID Date Data Source [id number] 12/12/2020 04:33:00 PM EST [facility] ([facility]) Name Value Range Interpretation Code Description Data Claribel rce(s) Supporting Document(s) bedside glucose 264 mg/dL 70-105 Above high normal Bedside Gluco se [facility] ([facility]) ID Date Data Source [id number] 12/12/2020 04:33:00 PM EST [facility] ([facility]) Name Value Range Interpretation Code Description Data Claribel rce(s) Supporting Document(s) bedside glucose 264 mg/dL 70-105 Above high normal [facility] ID Date Data Source [id number] 12/12/2020 04:33:00 PM EST [facility] ([facility]) Name Value Range Interpretation Code Description Data Claribel rce(s) Supporting Document(s) bedside glucose 264 mg/dL 70-105 Above high normal Bedside Gluco se [facility] ([facility]) ID Date Data Source [id number] 12/12/2020 12:02:00 PM EST [facility] ([facility]) Name Value Range Interpretation Code Description Data Claribel rce(s) Supporting Document(s) bedside glucose 124 mg/dL 70-105 Above high normal Bedside Gluco se [facility] ([facility]) ID Date Data Source [id number] 12/12/2020 12:02:00 PM EST [facility] ([facility]) Name Value Range Interpretation Code Description Data Claribel rce(s) Supporting Document(s) bedside glucose 124 mg/dL 70-105 Above high normal Bedside Gluco se [facility] ([facility]) ID Date Data Source [id number] 12/12/2020 12:02:00 PM EST [facility] ([facility]) Name Value Range Interpretation Code Description Data Claribel rce(s) Supporting Document(s) bedside glucose 124 mg/dL 70-105 Above high normal Bedside Gluco se [facility] ([facility]) ID Date Data Source [id number] 12/12/2020 12:02:00 PM EST [facility] ([facility]) Name Value Range Interpretation Code Description Data Claribel rce(s) Supporting Document(s) bedside glucose 124 mg/dL 70-105 Above high normal Bedside Gluco se [facility] ([facility]) ID Date Data Source [id number] 12/12/2020 12:02:00 PM EST [facility] ([facility]) Name Value Range Interpretation Code Description Data Claribel rce(s) Supporting Document(s) bedside glucose 124 mg/dL 70-105 Above high normal Bedside Gluco se [facility] ([facility]) ID Date Data Source [id number] 12/12/2020 12:02:00 PM EST [facility] ([facility]) Name Value Range Interpretation Code Description Data Claribel rce(s) Supporting Document(s) bedside glucose 124 mg/dL 70-105 Above high normal Bedside Gluco se [facility] ([facility]) ID Date Data Source [id number] 12/12/2020 08:03:00 AM EST [facility] ([facility]) Name Value Range Interpretation Code Description Data Claribel rce(s) Supporting Document(s) bedside glucose 156 mg/dL 70-105 Above high normal Bedside Gluco se [facility] ([facility]) ID Date Data Source [id number] 12/12/2020 08:03:00 AM EST [facility] ([facility]) Name Value Range Interpretation Code Description Data Claribel rce(s) Supporting Document(s) bedside glucose 156 mg/dL 70-105 Above high normal Bedside Gluco se [facility] ([facility]) ID Date Data Source [id number] 12/12/2020 08:03:00 AM EST [facility] ([facility]) Name Value Range Interpretation Code Description Data Claribel rce(s) Supporting Document(s) bedside glucose 156 mg/dL 70-105 Above high normal Bedside Gluco se [facility] ([facility]) ID Date Data Source [id number] 12/12/2020 08:03:00 AM EST [facility] ([facility]) Name Value Range Interpretation Code Description Data Claribel rce(s) Supporting Document(s) bedside glucose 156 mg/dL 70-105 Above high normal Bedside Gluco se [facility] ([facility]) ID Date Data Source [id number] 12/12/2020 08:03:00 AM EST [facility] ([facility]) Name Value Range Interpretation Code Description Data Claribel rce(s) Supporting Document(s) bedside glucose 156 mg/dL 70-105 Above high normal Bedside Gluco se [facility] ([facility]) ID Date Data Source [id number] 12/12/2020 08:03:00 AM EST [facility] ([facility]) Name Value Range Interpretation Code Description Data Claribel rce(s) Supporting Document(s) bedside glucose 156 mg/dL 70-105 Above high normal Bedside Gluco se [place] ([facility]) ID Date Data Source [id number] 12/12/2020 06:26:00 AM EST [facility] ([facility]) Name Value Range Interpretation Code Description Data Claribel rce(s) Supporting Document(s) bedside glucose 170 mg/dL 70-105 Above high normal Bedside Gluco se [facility]) ID Date Data Source [id number] 12/12/2020 06:26:00 AM EST [place] ([facility]) Name Value Range Interpretation Code Description Data Claribel rce(s) Supporting Document(s) bedside glucose 170 mg/dL 70-105 Above high normal Bedside Gluco se [facility] ([facility]) ID Date Data Source [id number] 12/12/2020 06:26:00 [facility] Name Value Range Interpretation Code Description Data Claribel rce(s) Supporting Document(s) bedside glucose 170 mg/dL 70-105 Above high normal Bedside Gluco se [facility] ([facility]) ID Date Data Source [id number] 12/12/2020 06:26:00 AM EST [facility] ([facility]) Name Value Range Interpretation Code Description Data Claribel rce(s) Supporting Document(s) bedside glucose 170 mg/dL 70-105 Above high normal Bedside Gluco se [facility]) ID Date Data Source [id number] 12/12/2020 06:26:00 AM EST [facility] ([facility]) Name Value Range Interpretation Code Description Data Claribel rce(s) Supporting Document(s) bedside glucose 170 mg/dL 70-105 Above high normal Bedside Gluco se [facility] ([facility]) ID Date Data Source [id number] 12/12/2020 06:26:00 AM EST [facility] ([facility]) Name Value Range Interpretation Code Description Data Claribel rce(s) Supporting Document(s) bedside glucose 170 mg/dL 70-105 Above high normal Bedside Gluco se [facility] ([facility]) ID Date Data Source [id number] 12/12/2020 05:08:00 AM EST [facility] ([facility]) Name Value Range Interpretation Code Description Data Claribel rce(s) Supporting Document(s) bedside glucose 114 mg/dL 70-105 Above high normal Bedside Gluco se [facility] ([facility]) ID Date Data Source [id number] 12/12/2020 05:08:00 AM EST [facility] ([facility]) Name Value Range Interpretation Code Description Data Claribel rce(s) Supporting Document(s) bedside glucose 114 mg/dL 70-105 Above high normal Bedside Gluco se [facility] ([facility]) ID Date Data Source [id number] 12/12/2020 05:08:00 AM EST [facility] ([facility]) Name Value Range Interpretation Code Description Data Claribel rce(s) Supporting Document(s) bedside glucose 114 mg/dL 70-105 Above high normal Bedside Gluco se [facility] ([facility]) ID Date Data Source [id number] 12/12/2020 05:08:00 AM EST [facility] ([facility]) Name Value Range Interpretation Code Description Data Claribel rce(s) Supporting Document(s) bedside glucose 114 mg/dL 70-105 Above high normal Bedside Gluco se [facility] ([facility]) ID Date Data Source [id number] 12/12/2020 05:08:00 AM LE [place] ([facility]) Name Value Range Interpretation Code Description Data Claribel rce(s) Supporting Document(s) bedside glucose 114 mg/dL 70-105 Above high normal Bedside Gluco se [facility] ([facility]) ID Date Data Source [id number] 12/12/2020 05:08:00 AM [place] ([facility]) Name Value Range Interpretation Code Description Data Claribel rce(s) Supporting Document(s) bedside glucose 114 mg/dL 70-105 Above high normal Bedside Gluco se [place] ([facility]) ID Date Data Source [id number] 12/12/2020 04:32:00 AM LE [place] [facility]) Name Value Range Interpretation Code Description Data Claribel rce(s) Supporting Document(s) magnesium level 2.6 mg/dL 1.8-2.4 Above high normal Magnesium [facility] ID Date Data Source [id number] 12/12/2020 04:32:00 AM LE [place] [facility]) Name Value Range Interpretation Code Description Data Claribel rce(s) Supporting Document(s) phosphorus level 1.5 mg/dL 2.5-4.9 Below low normal Phosphorus Le karma [facility] ([facility]) ID Date Data Source [id number] 12/12/2020 04:32:00 AM EST [facility]) Name Value Range Interpretation Code Description Data Claribel rce(s) Supporting Document(s) glucose, fasting 135 mg/dL 70-100 Above high normal Glucose, Fas ting [place] ([facility]) blood urea nitrogen 9 mg/dL 7-18 Blood Urea Nitro gen [facility] ([facility]) creatinine for GFR 1.15 mg/dL 0.55-1.30 Creatinine for GF R [facility] ([facility]) glomerular filtration rate >60 Below low normal Mariza merular Filtration Rate [facility] ([facility]) sodium level 143 mEq/L 136-145 Sodium Level [facility] ([facility]) potassium serum 3.5 mEq/L 3.5-5.1 Potassium Serum [place] NA ([facility]) chloride level 114 mEq/L 98-107 Above high normal Chloride Level [place] ([facility]) carbon dioxide level 20 mEq/L 21-32 Below low normal Carbon Di oxide Level [place] ([facility]) anion gap 9 mEq/L 8-16 Anion Gap [place] ([facility]) calcium level 8.3 mg/dL 8.5-10.1 Below low normal Calcium Level AT [facility]) ID Date Data Source [id number] 12/12/2020 04:32:00 AM EST [facility]) Name Value Range Interpretation Code Description Data Claribel rce(s) Supporting Document(s) white blood count 4.7 10 4.0-10.0 White Blood Count [place] ([facility]) red blood count 3.44 10 4.00-5.40 Below low normal Red Blood Coun t [place] ([facility]) hemoglobin 9.9 g/dL 12.0-15.5 Below low normal Hemoglobin [facility] ( [facility]) hematocrit 29.9 % 36.0-47.0 Below low normal Hematocrit [place] ( [facility]) mean corpuscular hemoglobin 28.8 pg 27.0-33.0 Mean Cor puscular Hemoglobin [place] ([facility]) mean corpuscular volume 86.9 fL 80.0-96.0 Mean Corpusc ular Volume [place] ([facility]) mean corpuscular HGB conc 33.1 g/dL 32.0-36.5 Mean Corpu scular HGB Conc [place] ([facility]) red cell distribution width 13.2 % 11.5-14.5 Red Cell Distribution Width [facility] ([facility]) platelet count, automated 171 10 150-450 Platelet C ount, Automated [place] ([facility]) nucleated red blood cell % 0.0 % 0-0 Nucleated Red Blood Cell % [place] ([facility]) ID Date Data Source [id number] 12/12/2020 04:32:00 AM EST [place] ([facility]) Name Value Range Interpretation Code Description Data Claribel rce(s) Supporting Document(s) magnesium level 2.6 mg/dL 1.8-2.4 Above high normal Magnesium Lev el [facility]) ID Date Data Source [id number] 12/12/2020 04:32:00 AM EST [place] ([facility]) Name Value Range Interpretation Code Description Data Claribel rce(s) Supporting Document(s) phosphorus level 1.5 mg/dL 2.5-4.9 Below low normal Phosphorus Le karma [place] ([facility]) ID Date Data Source [id number] 12/12/2020 04:32:00 AM EST [facility] ([facility]) Name Value Range Interpretation Code Description Data Claribel rce(s) Supporting Document(s) glucose, fasting 135 mg/dL 70-100 Above high normal Glucose, Fas ting [place] ([facility]) blood urea nitrogen 9 mg/dL 7-18 Blood Urea Nitro gen [facility] ([facility]) creatinine for GFR 1.15 mg/dL 0.55-1.30 Creatinine for GF R [place] ([facility]) glomerular filtration rate >60 Below low normal Mariza merular Filtration Rate [facility] ([facility]) sodium level 143 mEq/L 136-145 Sodium Level [facility] (No [facility]) potassium serum 3.5 mEq/L 3.5-5.1 Potassium Serum A[place] NA ([facility]) chloride level 114 mEq/L 98-107 Above high normal Chloride Level [place] ([facility]) anion gap 9 mEq/L 8-16 Anion Gap [facility] ([facility]) carbon dioxide level 20 mEq/L 21-32 Below low normal Carbon Di oxide Level [place] ([facility]) calcium level 8.3 mg/dL 8.5-10.1 Below low normal Calcium Level AT [facility]) ID Date Data Source [id number] 12/12/2020 04:32:00 AM EST [place] ([facility]) Name Value Range Interpretation Code Description Data Claribel rce(s) Supporting Document(s) white blood count 4.7 10 4.0-10.0 White Blood Count [place] ([facility]) red blood count 3.44 10 4.00-5.40 Below low normal Red Blood Coun t [place] ([facility]) hemoglobin 9.9 g/dL 12.0-15.5 Below low normal Hemoglobin [place] ( [facility]) hematocrit 29.9 % 36.0-47.0 Below low normal Hematocrit [place] ( [facility]) mean corpuscular volume 86.9 fL 80.0-96.0 Mean Corpusc ular Volume [place] ([facility]) mean corpuscular HGB conc 33.1 g/dL 32.0-36.5 Mean Corpu scular HGB Conc [place] ([facility]) mean corpuscular hemoglobin 28.8 pg 27.0-33.0 Mean Cor puscular Hemoglobin [place] ([facility]) red cell distribution width 13.2 % 11.5-14.5 Red Cell Distribution Width [place] ([facility]) platelet count, automated 171 10 150-450 Platelet C ount, Automated [facility] ([facility]) nucleated red blood cell % 0.0 % 0-0 Nucleated Red Blood Cell % [place] ([facility]) ID Date Data Source [id number] 12/12/2020 04:32:00 AM EST [place] ([facility]) Name Value Range Interpretation Code Description Data Claribel rce(s) Supporting Document(s) magnesium level 2.6 mg/dL 1.8-2.4 Above high normal Magnesium Lev el [facility] ([facility]) ID Date Data Source [id number] 12/12/2020 04:32:00 AM EST [facility] ([facility]) Name Value Range Interpretation Code Description Data Claribel rce(s) Supporting Document(s) phosphorus level 1.5 mg/dL 2.5-4.9 Below low normal Phosphorus Le karma [facility] ([facility]) ID Date Data Source [id number] 12/12/2020 04:32:00 AM EST [facility] ([facility]) Name Value Range Interpretation Code Description Data Claribel rce(s) Supporting Document(s) glucose, fasting 135 mg/dL 70-100 Above high normal Glucose, Fas ting [place] ([facility]) blood urea nitrogen 9 mg/dL 7-18 Blood Urea Nitro gen [place] ([facility]) creatinine for GFR 1.15 mg/dL 0.55-1.30 Creatinine for GF R [place] ([facility]) glomerular filtration rate >60 Below low normal Mariza merular Filtration Rate [facility] ([facility]) sodium level 143 mEq/L 136-145 Sodium Level [facility] ([facility]) potassium serum 3.5 mEq/L 3.5-5.1 Potassium Serum ATHE NA ([facility]) chloride level 114 mEq/L 98-107 Above high normal Chloride Level [place] ([facility]) carbon dioxide level 20 mEq/L 21-32 Below low normal Carbon Di oxide Level [facility] ([facility]) anion gap 9 mEq/L 8-16 Anion Gap [facility] ([facility]) calcium level 8.3 mg/dL 8.5-10.1 Below low normal Calcium Level AT [facility]) ID Date Data Source [id number] 12/12/2020 04:32:00 AM EST [facility] ([facility]) Name Value Range Interpretation Code Description Data Claribel rce(s) Supporting Document(s) white blood count 4.7 10 4.0-10.0 White Blood Count [facility] ([facility]) red blood count 3.44 10 4.00-5.40 Below low normal Red Blood Coun t [facility] ([facility]) hemoglobin 9.9 g/dL 12.0-15.5 Below low normal Hemoglobin [place] ( [facility]) hematocrit 29.9 % 36.0-47.0 Below low normal Hematocrit [facility] ( [facility]) mean corpuscular volume 86.9 fL 80.0-96.0 Mean Corpusc ular Volume [facility] ([facility]) mean corpuscular hemoglobin 28.8 pg 27.0-33.0 Mean Cor puscular Hemoglobin [place] ([facility]) mean corpuscular HGB conc 33.1 g/dL 32.0-36.5 Mean Corpu scular HGB Conc [place] ([facility]) platelet count, automated 171 10 150-450 Platelet C ount, Automated [facility] ([facility]) red cell distribution width 13.2 % 11.5-14.5 Red Cell Distribution Width [place] ([facility]) nucleated red blood cell % 0.0 % 0-0 Nucleated Red Blood Cell % [place] ([facility]) ID Date Data Source [id number] 12/12/2020 04:32:00 AM EST [place] ([facility]) Name Value Range Interpretation Code Description Data Claribel rce(s) Supporting Document(s) magnesium level 2.6 mg/dL 1.8-2.4 Above high normal Magnesium Lev el [place] ([facility]) ID Date Data Source [id number] 12/12/2020 04:32:00 AM EST [facility] ([facility]) Name Value Range Interpretation Code Description Data Claribel rce(s) Supporting Document(s) phosphorus level 1.5 mg/dL 2.5-4.9 Below low normal Phosphorus Le karma [facility] ([facility]) ID Date Data Source [id number] 12/12/2020 04:32:00 AM EST [facility] ([facility]) Name Value Range Interpretation Code Description Data Claribel rce(s) Supporting Document(s) glucose, fasting 135 mg/dL 70-100 Above high normal Glucose, Fas ting [place] ([facility]) blood urea nitrogen 9 mg/dL 7-18 Blood Urea Nitro gen [place] ([facility]) creatinine for GFR 1.15 mg/dL 0.55-1.30 Creatinine for GF R [place] ([facility]) glomerular filtration rate >60 Below low normal Mariza merular Filtration Rate [place] ([facility]) sodium level 143 mEq/L 136-145 Sodium Level [place] ([facility]) potassium serum 3.5 mEq/L 3.5-5.1 Potassium Serum ATH NA [facility]) chloride level 114 mEq/L 98-107 Above high normal Chloride Level [place] ([facility]) carbon dioxide level 20 mEq/L 21-32 Below low normal Carbon Di oxide Level [place] ([facility]) anion gap 9 mEq/L 8-16 Anion Gap [place] ([facility]) calcium level 8.3 mg/dL 8.5-10.1 Below low normal Calcium Level AT [facility]) ID Date Data Source [id number] 12/12/2020 04:32:00 AM EST [facility] ([facility]) Name Value Range Interpretation Code Description Data Claribel rce(s) Supporting Document(s) white blood count 4.7 10 4.0-10.0 White Blood Count [place] ([facility]) red blood count 3.44 10 4.00-5.40 Below low normal Red Blood Coun t [place] ([facility]) hematocrit 29.9 % 36.0-47.0 Below low normal Hematocrit [place] ( [facility]) hemoglobin 9.9 g/dL 12.0-15.5 Below low normal Hemoglobin [place] ( [facility]) mean corpuscular volume 86.9 fL 80.0-96.0 Mean Corpusc ular Volume [facility] ([facility]) mean corpuscular hemoglobin 28.8 pg 27.0-33.0 Mean Cor puscular Hemoglobin [place] ([facility]) mean corpuscular HGB conc 33.1 g/dL 32.0-36.5 Mean Corpu scular HGB Conc [place] ([facility]) red cell distribution width 13.2 % 11.5-14.5 Red Cell Distribution Width [place] ([facility]) platelet count, automated 171 10 150-450 Platelet C ount, Automated [facility] ([facility]) nucleated red blood cell % 0.0 % 0-0 Nucleated Red Blood Cell % [place] ([facility]) ID Date Data Source [id number] 12/12/2020 04:32:00 AM LE [place] ([facility]) Name Value Range Interpretation Code Description Data Claribel rce(s) Supporting Document(s) magnesium level 2.6 mg/dL 1.8-2.4 Above high normal Magnesium Lev vasile [facility] [place] ([facility]) ID Date Data Source [id number] 12/12/2020 04:32:00 AM EST [place] ([facility]) Name Value Range Interpretation Code Description Data Claribel rce(s) Supporting Document(s) phosphorus level 1.5 mg/dL 2.5-4.9 Below low normal Phosphorus Le karma [facility] ([facility]) ID Date Data Source [id number] 12/12/2020 04:32:00 AM EST [place] ([facility]) Name Value Range Interpretation Code Description Data Claribel rce(s) Supporting Document(s) blood urea nitrogen 9 mg/dL 7-18 Blood Urea Nitro gen [place] ([facility]) glucose, fasting 135 mg/dL 70-100 Above high normal Glucose, Fas ting [place] ([facility]) creatinine for GFR 1.15 mg/dL 0.55-1.30 Creatinine for GF R [place] ([facility]) glomerular filtration rate >60 Below low normal Mariza merular Filtration Rate [facility] ([facility]) potassium serum 3.5 mEq/L 3.5-5.1 Potassium Serum [facility] NA ([facility]) sodium level 143 mEq/L 136-145 Sodium Level [facility] ([facility]) chloride level 114 mEq/L 98-107 Above high normal Chloride Level [facility] ([facility]) anion gap 9 mEq/L 8-16 Anion Gap [facility] ([facility]) carbon dioxide level 20 mEq/L 21-32 Below low normal Carbon Di oxide Level [facility] ([facility]) calcium level 8.3 mg/dL 8.5-10.1 Below low normal Calcium Level AT [facility]) ID Date Data Source [id number] 12/12/2020 04:32:00 AM EST [facility]) Name Value Range Interpretation Code Description Data Claribel rce(s) Supporting Document(s) white blood count 4.7 10 4.0-10.0 White Blood Count [facility] ([facility]) hemoglobin 9.9 g/dL 12.0-15.5 Below low normal Hemoglobin [place] ( [facility]) red blood count 3.44 10 4.00-5.40 Below low normal Red Blood Coun t [facility] ([facility]) hematocrit 29.9 % 36.0-47.0 Below low normal Hematocrit [facility] ( [facility]) mean corpuscular hemoglobin 28.8 pg 27.0-33.0 Mean Cor puscular Hemoglobin [facility] ([facility]) mean corpuscular volume 86.9 fL 80.0-96.0 Mean Corpusc ular Volume [facility] ([facility]) mean corpuscular HGB conc 33.1 g/dL 32.0-36.5 Mean Corpu scular HGB Conc [facility] ([facility]) red cell distribution width 13.2 % 11.5-14.5 Red Cell Distribution Width [facility] ([facility]) platelet count, automated 171 10 150-450 Platelet C ount, Automated [facility] ([facility]) nucleated red blood cell % 0.0 % 0-0 Nucleated Red Blood Cell % [facility] ([facility]) ID Date Data Source [id number] 12/12/2020 04:32:00 AM EST [facility] ([facility]) Name Value Range Interpretation Code Description Data Claribel rce(s) Supporting Document(s) magnesium level 2.6 mg/dL 1.8-2.4 Above high normal Magnesium Lev el [facility] ([facility]) ID Date Data Source [id number] 12/12/2020 04:32:00 AM EST [facility] ([facility]) Name Value Range Interpretation Code Description Data Claribel rce(s) Supporting Document(s) phosphorus level 1.5 mg/dL 2.5-4.9 Below low normal Phosphorus Le karma [facility] ([facility]) ID Date Data Source [id number] 12/12/2020 04:32:00 AM EST [facility] ([facility]) Name Value Range Interpretation Code Description Data Claribel rce(s) Supporting Document(s) glucose, fasting 135 mg/dL 70-100 Above high normal Glucose, Fas ting [facility] ([facility]) blood urea nitrogen 9 mg/dL 7-18 Blood Urea Nitro gen [facility] ([facility]) creatinine for GFR 1.15 mg/dL 0.55-1.30 Creatinine for GF R [facility] ([facility]) sodium level 143 mEq/L 136-145 Sodium Level [facility] (No [facility]) glomerular filtration rate >60 Below low normal Mariza merular Filtration Rate [facility] ([facility]) potassium serum 3.5 mEq/L 3.5-5.1 Potassium Serum [facility] NA ([facility]) chloride level 114 mEq/L 98-107 Above high normal Chloride Level [facility] ([facility]) carbon dioxide level 20 mEq/L 21-32 Below low normal Carbon Di oxide Level [place] ([facility]) anion gap 9 mEq/L 8-16 Anion Gap [facility] ([facility]) calcium level 8.3 mg/dL 8.5-10.1 Below low normal Calcium Level AT [facility] ([facility]) ID Date Data Source [id number] 12/12/2020 04:32:00 AM EST [place] ([facility]) Name Value Range Interpretation Code Description Data Claribel rce(s) Supporting Document(s) white blood count 4.7 10 4.0-10.0 White Blood Count [place] ([facility]) red blood count 3.44 10 4.00-5.40 Below low normal Red Blood Coun t [place] ([facility]) hemoglobin 9.9 g/dL 12.0-15.5 Below low normal Hemoglobin [place] ( [facility]) hematocrit 29.9 % 36.0-47.0 Below low normal Hematocrit [place] ( [facility]) mean corpuscular volume 86.9 fL 80.0-96.0 Mean Corpusc ular Volume [place] ([facility]) mean corpuscular hemoglobin 28.8 pg 27.0-33.0 Mean Cor puscular Hemoglobin [facility] ([facility]) mean corpuscular HGB conc 33.1 g/dL 32.0-36.5 Mean Corpu scular HGB Conc [place] ([facility]) red cell distribution width 13.2 % 11.5-14.5 Red Cell Distribution Width [place] ([facility]) platelet count, automated 171 10 150-450 Platelet C ount, Automated [place] ([facility]) nucleated red blood cell % 0.0 % 0-0 Nucleated Red Blood Cell % [place] ([facility]) ID Date Data Source [id number] 12/12/2020 04:24:00 AM EST [place] ([facility]) Name Value Range Interpretation Code Description Data Claribel rce(s) Supporting Document(s) bedside glucose 133 mg/dL 70-105 Above high normal Bedside Gluco se [place] ([facility]) ID Date Data Source [id number] 12/12/2020 04:24:00 AM EST [facility] ([facility]) Name Value Range Interpretation Code Description Data Claribel rce(s) Supporting Document(s) bedside glucose 133 mg/dL 70-105 Above high normal Bedside Gluco se [facility] ([facility]) ID Date Data Source [id number] 12/12/2020 04:24:00 AM EST [facility] ([facility]) Name Value Range Interpretation Code Description Data Claribel rce(s) Supporting Document(s) bedside glucose 133 mg/dL 70-105 Above high normal Bedside Gluco se [facility] ([facility]) ID Date Data Source [id number] 12/12/2020 04:24:00 AM EST [facility]) Name Value Range Interpretation Code Description Data Claribel rce(s) Supporting Document(s) bedside glucose 133 mg/dL 70-105 Above high normal Bedside Gluco se [place] ([facility]) ID Date Data Source [id number] 12/12/2020 04:24:00 AM EST [facility]) Name Value Range Interpretation Code Description Data Claribel rce(s) Supporting Document(s) bedside glucose 133 mg/dL 70-105 Above high normal Bedside Gluco se [facility] ([facility]) ID Date Data Source [id number] 12/12/2020 04:24:00 AM EST [facility] ([facility]) Name Value Range Interpretation Code Description Data Claribel rce(s) Supporting Document(s) bedside glucose 133 mg/dL 70-105 Above high normal [facility] Data Source [id number] 12/12/2020 03:01:00 AM EST [facility]) Name Value Range Interpretation Code Description Data Claribel rce(s) Supporting Document(s) bedside glucose 153 mg/dL 70-105 Above high normal Bedside Gluco se [facility] ([facility]) ID Date Data Source [id number] 12/12/2020 03:01:00 AM EST [facility] ([facility]) Name Value Range Interpretation Code Description Data Claribel rce(s) Supporting Document(s) bedside glucose 153 mg/dL 70-105 Above high normal Bedside Gluco se [facility] ([facility]) ID Date Data Source [id number] 12/12/2020 03:01:00 AM EST [facility]) Name Value Range Interpretation Code Description Data Claribel rce(s) Supporting Document(s) bedside glucose 153 mg/dL 70-105 Above high normal Bedside Gluco se [facility]) ID Date Data Source [id number] 12/12/2020 03:01:00 AM EST [facility]) Name Value Range Interpretation Code Description Data Claribel rce(s) Supporting Document(s) bedside glucose 153 mg/dL 70-105 Above high normal Bedside Gluco se [facility]) ID Date Data Source [id number] 12/12/2020 03:01:00 AM EST [facility] ([facility]) Name Value Range Interpretation Code Description Data Claribel rce(s) Supporting Document(s) bedside glucose 153 mg/dL 70-105 Above high normal [facility] Date Data Source [id number] 12/12/2020 03:01:00 AM EST [facility]) Name Value Range Interpretation Code Description Data Claribel rce(s) Supporting Document(s) bedside glucose 153 mg/dL 70-105 Above high normal [facility] Date Data Source [id number] 12/12/2020 02:13:00 AM EST [facility] ([facility]) Name Value Range Interpretation Code Description Data Claribel rce(s) Supporting Document(s) bedside glucose 140 mg/dL 70-105 Above high normal Bedside Gluco se [facility] ([facility]) ID Date Data Source [id number] 12/12/2020 02:13:00 AM EST [facility] ([facility]) Name Value Range Interpretation Code Description Data Claribel rce(s) Supporting Document(s) bedside glucose 140 mg/dL 70-105 Above high normal Bedside Gluco se [facility] ([facility]) ID Date Data Source [id number] 12/12/2020 02:13:00 AM EST [facility] ([facility]) Name Value Range Interpretation Code Description Data Claribel rce(s) Supporting Document(s) bedside glucose 140 mg/dL 70-105 Above high normal Bedside Gluco se [facility] ([facility]) ID Date Data Source [id number] 12/12/2020 02:13:00 AM EST [facility] ([facility]) Name Value Range Interpretation Code Description Data Claribel rce(s) Supporting Document(s) bedside glucose 140 mg/dL 70-105 Above high normal Bedside Gluco se [facility] ([facility]) ID Date Data Source [id number] 12/12/2020 02:13:00 AM EST [facility] ([facility]) Name Value Range Interpretation Code Description Data Claribel rce(s) Supporting Document(s) bedside glucose 140 mg/dL 70-105 Above high normal Bedside Gluco se [facility] ([facility]) ID Date Data Source [id number] 12/12/2020 02:13:00 AM EST [facility] ([facility]) Name Value Range Interpretation Code Description Data Claribel rce(s) Supporting Document(s) bedside glucose 140 mg/dL 70-105 Above high normal Bedside Gluco se [facility] ([facility]) ID Date Data Source [id number] 12/12/2020 01:26:00 AM EST [facility] ([facility]) Name Value Range Interpretation Code Description Data Claribel rce(s) Supporting Document(s) bedside glucose 115 mg/dL 70-105 Above high normal Bedside Gluco se [place] ([facility]) ID Date Data Source [id number] 12/12/2020 01:26:00 AM EST [facility] ([facility]) Name Value Range Interpretation Code Description Data Claribel rce(s) Supporting Document(s) bedside glucose 115 mg/dL 70-105 Above high normal Bedside Gluco se [facility]) ID Date Data Source [id number] 12/12/2020 01:26:00 AM EST [facility]) Name Value Range Interpretation Code Description Data Claribel rce(s) Supporting Document(s) bedside glucose 115 mg/dL 70-105 Above high normal Bedside Gluco se [facility]) ID Date Data Source [id number] 12/12/2020 01:26:00 AM EST [facility] ([facility]) Name Value Range Interpretation Code Description Data Claribel rce(s) Supporting Document(s) bedside glucose 115 mg/dL 70-105 Above high normal Bedside Gluco se [facility]) ID Date Data Source [id number] 12/12/2020 01:26:00 [facility] Name Value Range Interpretation Code Description Data Claribel rce(s) Supporting Document(s) bedside glucose 115 mg/dL 70-105 Above high normal Bedside Gluco se [facility] ([facility]) ID Date Data Source [id number] 12/12/2020 01:26:00 AM EST [facility] ([facility]) Name Value Range Interpretation Code Description Data Claribel rce(s) Supporting Document(s) bedside glucose 115 mg/dL 70-105 Above high normal Bedside Gluco se [facility] ([facility]) ID Date Data Source [id number] 12/12/2020 12:21:00 AM EST [facility] ([facility]) Name Value Range Interpretation Code Description Data Claribel rce(s) Supporting Document(s) bedside glucose 130 mg/dL 70-105 Above high normal Bedside Gluco se [facility] ([facility]) ID Date Data Source [id number] 12/12/2020 12:21:00 AM EST [facility] ([facility]) Name Value Range Interpretation Code Description Data Claribel rce(s) Supporting Document(s) bedside glucose 130 mg/dL 70-105 Above high normal Bedside Gluco se [facility] ([facility]) ID Date Data Source [id number] 12/12/2020 12:21:00 AM EST [facility] ([facility]) Name Value Range Interpretation Code Description Data Claribel rce(s) Supporting Document(s) bedside glucose 130 mg/dL 70-105 Above high normal Bedside Gluco se [facility] ([facility]) ID Date Data Source [id number] 12/12/2020 12:21:00 AM EST [facility] ([facility]) Name Value Range Interpretation Code Description Data Claribel rce(s) Supporting Document(s) bedside glucose 130 mg/dL 70-105 Above high normal Bedside Gluco se [facility] ([facility]) ID Date Data Source [id number] 12/12/2020 12:21:00 AM EST [facility] ([facility]) Name Value Range Interpretation Code Description Data Claribel rce(s) Supporting Document(s) bedside glucose 130 mg/dL 70-105 Above high normal Bedside Gluco se [place] ([facility]) ID Date Data Source [id number] 12/12/2020 12:21:00 AM EST [facility] ([facility]) Name Value Range Interpretation Code Description Data Claribel rce(s) Supporting Document(s) bedside glucose 130 mg/dL 70-105 Above high normal Bedside Gluco se [place] ([facility]) ID Date Data Source [id number] 12/12/2020 12:15:00 AM LE [place] ([facility]) Name Value Range Interpretation Code Description Data Claribel rce(s) Supporting Document(s) phosphorus level 2.3 mg/dL 2.5-4.9 Below low normal Phosphorus Le karma [facility] ([facility]) ID Date Data Source [id number] 12/12/2020 12:15:00 AM LE [place] ([facility]) Name Value Range Interpretation Code Description Data Claribel rce(s) Supporting Document(s) magnesium level 2.9 mg/dL 1.8-2.4 Above high normal Magnesium Lev vasile HANNA [facility]) ID Date Data Source [id number] 12/12/2020 12:15:00 AM EST [facility] ([facility]) Name Value Range Interpretation Code Description Data Claribel rce(s) Supporting Document(s) phosphorus level 2.3 mg/dL 2.5-4.9 Below low normal Phosphorus Le karma [place] ([facility]) ID Date Data Source [id number] 12/12/2020 12:15:00 AM EST [facility]) Name Value Range Interpretation Code Description Data Claribel rce(s) Supporting Document(s) glucose, fasting 146 mg/dL 70-100 Above high normal Glucose, Fas ting [place] ([facility]) blood urea nitrogen 12 mg/dL 7-18 Blood Urea Nitro gen [facility] ([facility]) creatinine for GFR 1.02 mg/dL 0.55-1.30 Creatinine for GF R [place] ([facility]) glomerular filtration rate > 60.0 >60 Glomerula r Filtration Rate [place] ([facility]) potassium serum 3.4 mEq/L 3.5-5.1 Below low normal Potassium Seru m [place] ([facility]) sodium level 141 mEq/L 136-145 Sodium Level [place] ([facility]) chloride level 113 mEq/L 98-107 Above high normal Chloride Level [place] ([facility]) carbon dioxide level 19 mEq/L 21-32 Below low normal Carbon Di oxide Level [place] ([facility]) anion gap 9 mEq/L 8-16 Anion Gap [place] ([facility]) calcium level 8.5 mg/dL 8.5-10.1 Calcium Level [place] ( [facility]) ID Date Data Source [id number] 12/12/2020 12:15:00 AM EST [facility]) Name Value Range Interpretation Code Description Data Claribel rce(s) Supporting Document(s) phosphorus level 2.3 mg/dL 2.5-4.9 Below low normal Phosphorus Le karma [facility] ([facility]) ID Date Data Source [id number] 12/12/2020 12:15:00 AM EST [place] ([facility]) Name Value Range Interpretation Code Description Data Claribel rce(s) Supporting Document(s) magnesium level 2.9 mg/dL 1.8-2.4 Above high normal Magnesium Lev el [facility]) ID Date Data Source [id number] 12/12/2020 12:15:00 [facility] Name Value Range Interpretation Code Description Data Claribel rce(s) Supporting Document(s) phosphorus level 2.3 mg/dL 2.5-4.9 Below low normal Phosphorus Le karma [facility] ([facility]) ID Date Data Source [id number] 12/12/2020 12:15:00 AM EST [facility] ([facility]) Name Value Range Interpretation Code Description Data Claribel rce(s) Supporting Document(s) glucose, fasting 146 mg/dL 70-100 Above high normal Glucose, Fas ting [place] ([facility]) blood urea nitrogen 12 mg/dL 7-18 Blood Urea Nitro gen [place] ([facility]) creatinine for GFR 1.02 mg/dL 0.55-1.30 Creatinine for GF R [place] ([facility]) glomerular filtration rate > 60.0 >60 Glomerula r Filtration Rate [place] ([facility]) sodium level 141 mEq/L 136-145 Sodium Level [facility] ([facility]) potassium serum 3.4 mEq/L 3.5-5.1 Below low normal Potassium Seru m [place] ([facility]) chloride level 113 mEq/L 98-107 Above high normal Chloride Level [place] ([facility]) carbon dioxide level 19 mEq/L 21-32 Below low normal Carbon Di oxide Level [place] ([facility]) anion gap 9 mEq/L 8-16 Anion Gap [place] ([facility]) calcium level 8.5 mg/dL 8.5-10.1 Calcium Level [facility] ( [facility]) ID Date Data Source [id number] 12/12/2020 12:15:00 AM EST [facility] ([facility]) Name Value Range Interpretation Code Description Data Claribel rce(s) Supporting Document(s) phosphorus level 2.3 mg/dL 2.5-4.9 Below low normal Phosphorus Le karma [facility] ([facility]) ID Date Data Source [id number] 12/12/2020 12:15:00 AM EST [facility] ([facility]) Name Value Range Interpretation Code Description Data Claribel rce(s) Supporting Document(s) magnesium level 2.9 mg/dL 1.8-2.4 Above high normal Magnesium Lev el [facility] ([facility]) ID Date Data Source [id number] 12/12/2020 12:15:00 AM EST [facility] ([facility]) Name Value Range Interpretation Code Description Data Claribel rce(s) Supporting Document(s) phosphorus level 2.3 mg/dL 2.5-4.9 Below low normal Phosphorus Le karma [facility] ([facility]) ID Date Data Source [id number] 12/12/2020 12:15:00 AM EST [facility] ([facility]) Name Value Range Interpretation Code Description Data Claribel rce(s) Supporting Document(s) glucose, fasting 146 mg/dL 70-100 Above high normal Glucose, Fas ting [facility] ([facility]) creatinine for GFR 1.02 mg/dL 0.55-1.30 Creatinine for GF R [place] ([facility]) blood urea nitrogen 12 mg/dL 7-18 Blood Urea Nitro gen [facility] ([facility]) glomerular filtration rate > 60.0 >60 Glomerula r Filtration Rate [facility] ([facility]) sodium level 141 mEq/L 136-145 Sodium Level [facility] ([facility]) potassium serum 3.4 mEq/L 3.5-5.1 Below low normal Potassium Seru m [facility] ([facility]) chloride level 113 mEq/L 98-107 Above high normal Chloride Level [place] ([facility]) anion gap 9 mEq/L 8-16 Anion Gap [facility] ([facility]) carbon dioxide level 19 mEq/L 21-32 Below low normal Carbon Di oxide Level [place] ([facility]) calcium level 8.5 mg/dL 8.5-10.1 Calcium Level [place] ( [facility]) ID Date Data Source [id number] 12/12/2020 12:15:00 AM EST [facility] ([facility]) Name Value Range Interpretation Code Description Data Claribel rce(s) Supporting Document(s) glucose, fasting 146 mg/dL 70-100 Above high normal Glucose, Fas ting [facility] ([facility]) blood urea nitrogen 12 mg/dL 7-18 Blood Urea Nitro gen [facility] ([facility]) creatinine for GFR 1.02 mg/dL 0.55-1.30 Creatinine for GF R [facility] ([facility]) glomerular filtration rate > 60.0 >60 Glomerula r Filtration Rate [facility] ([facility]) sodium level 141 mEq/L 136-145 Sodium Level [facility] ([facility]) potassium serum 3.4 mEq/L 3.5-5.1 Below low normal Potassium Seru m [place] ([facility]) chloride level 113 mEq/L 98-107 Above high normal Chloride Level [place] ([facility]) carbon dioxide level 19 mEq/L 21-32 Below low normal Carbon Di oxide Level [place] ([facility]) anion gap 9 mEq/L 8-16 Anion Gap [facility] ([facility]) calcium level 8.5 mg/dL 8.5-10.1 Calcium Level [place] ( [facility]) ID Date Data Source [id number] 12/12/2020 12:15:00 AM EST [facility] ([facility]) Name Value Range Interpretation Code Description Data Claribel rce(s) Supporting Document(s) phosphorus level 2.3 mg/dL 2.5-4.9 Below low normal Phosphorus Le karma [facility] ([facility]) ID Date Data Source [id number] 12/12/2020 12:15:00 AM EST [facility] ([facility]) Name Value Range Interpretation Code Description Data Claribel rce(s) Supporting Document(s) magnesium level 2.9 mg/dL 1.8-2.4 Above high normal Magnesium Lev el [facility] ([facility]) ID Date Data Source [id number] 12/12/2020 12:15:00 AM EST [facility] ([facility]) Name Value Range Interpretation Code Description Data Claribel rce(s) Supporting Document(s) phosphorus level 2.3 mg/dL 2.5-4.9 Below low normal Phosphorus Le karma [facility] ([facility]) ID Date Data Source [id number] 12/12/2020 12:15:00 AM EST [facility] ([facility]) Name Value Range Interpretation Code Description Data Claribel rce(s) Supporting Document(s) glucose, fasting 146 mg/dL 70-100 Above high normal Glucose, Fas ting [place] ([facility]) blood urea nitrogen 12 mg/dL 7-18 Blood Urea Nitro gen [place] ([facility]) creatinine for GFR 1.02 mg/dL 0.55-1.30 Creatinine for GF R [place] ([facility]) glomerular filtration rate > 60.0 >60 Glomerula r Filtration Rate [facility] ([facility]) sodium level 141 mEq/L 136-145 Sodium Level [facility] (No [facility]) potassium serum 3.4 mEq/L 3.5-5.1 Below low normal Potassium Seru m [place] ([facility]) chloride level 113 mEq/L 98-107 Above high normal Chloride Level [place] ([facility]) carbon dioxide level 19 mEq/L 21-32 Below low normal Carbon Di oxide Level [place] ([facility]) anion gap 9 mEq/L 8-16 Anion Gap [place] ([facility]) calcium level 8.5 mg/dL 8.5-10.1 Calcium Level [facility] ( [facility]) ID Date Data Source [id number] 12/12/2020 12:15:00 AM EST [facility] ([facility]) Name Value Range Interpretation Code Description Data Claribel rce(s) Supporting Document(s) phosphorus level 2.3 mg/dL 2.5-4.9 Below low normal Phosphorus Le karma [facility] ([facility]) ID Date Data Source [id number] 12/12/2020 12:15:00 AM EST [facility] ([facility]) Name Value Range Interpretation Code Description Data Claribel rce(s) Supporting Document(s) magnesium level 2.9 mg/dL 1.8-2.4 Above high normal Magnesium Lev vasile [place] ([facility]) ID Date Data Source [id number] 12/12/2020 12:15:00 AM EST [facility] ([facility]) Name Value Range Interpretation Code Description Data Claribel rce(s) Supporting Document(s) phosphorus level 2.3 mg/dL 2.5-4.9 Below low normal Phosphorus Le karma [place] ([facility]) ID Date Data Source [id number] 12/12/2020 12:15:00 AM EST [facility] ([facility]) Name Value Range Interpretation Code Description Data Claribel rce(s) Supporting Document(s) glucose, fasting 146 mg/dL 70-100 Above high normal Glucose, Fas ting [place] ([facility]) blood urea nitrogen 12 mg/dL 7-18 Blood Urea Nitro gen [place] ([facility]) creatinine for GFR 1.02 mg/dL 0.55-1.30 Creatinine for GF R [place] ([facility]) glomerular filtration rate > 60.0 >60 Glomerula r Filtration Rate [facility] ([facility]) sodium level 141 mEq/L 136-145 Sodium Level [facility] (No [facility]) potassium serum 3.4 mEq/L 3.5-5.1 Below low normal Potassium Seru m [place] ([facility]) chloride level 113 mEq/L 98-107 Above high normal Chloride Level [place] ([facility]) carbon dioxide level 19 mEq/L 21-32 Below low normal Carbon Di oxide Level [place] ([facility]) anion gap 9 mEq/L 8-16 Anion Gap [facility] ([facility]) calcium level 8.5 mg/dL 8.5-10.1 Calcium Level [place] ( [facility]) ID Date Data Source [id number] 12/12/2020 12:15:00 AM EST [facility] ([facility]) Name Value Range Interpretation Code Description Data Claribel rce(s) Supporting Document(s) phosphorus level 2.3 mg/dL 2.5-4.9 Below low normal Phosphorus Le karma [facility] ([facility]) ID Date Data Source [id number] 12/12/2020 12:15:00 AM EST [facility] ([facility]) Name Value Range Interpretation Code Description Data Claribel rce(s) Supporting Document(s) magnesium level 2.9 mg/dL 1.8-2.4 Above high normal Magnesium Lev el [facility] ([facility]) ID Date Data Source [id number] 12/12/2020 12:15:00 AM EST [facility] ([facility]) Name Value Range Interpretation Code Description Data Claribel rce(s) Supporting Document(s) phosphorus level 2.3 mg/dL 2.5-4.9 Below low normal Phosphorus Le karma [facility] ([facility]) ID Date Data Source [id number] 12/11/2020 11:18:00 PM EST [facility] ([facility]) Name Value Range Interpretation Code Description Data Claribel rce(s) Supporting Document(s) bedside glucose 142 mg/dL 70-105 Above high normal Bedside Gluco se [facility] ([facility]) ID Date Data Source [id number] 12/11/2020 11:18:00 PM EST [facility] ([facility]) Name Value Range Interpretation Code Description Data Claribel rce(s) Supporting Document(s) bedside glucose 142 mg/dL 70-105 Above high normal Bedside Gluco se [facility] ([facility]) ID Date Data Source [id number] 12/11/2020 11:18:00 PM EST [facility] ([facility]) Name Value Range Interpretation Code Description Data Claribel rce(s) Supporting Document(s) bedside glucose 142 mg/dL 70-105 Above high normal Bedside Gluco se [place] ([facility]) ID Date Data Source [id number] 12/11/2020 11:18:00 PM EST [facility] ([facility]) Name Value Range Interpretation Code Description Data Claribel rce(s) Supporting Document(s) bedside glucose 142 mg/dL 70-105 Above high normal [facility] Date Data Source [id number] 12/11/2020 11:18:00 PM EST [facility] ([facility]) Name Value Range Interpretation Code Description Data Claribel rce(s) Supporting Document(s) bedside glucose 142 mg/dL 70-105 Above high normal [facility]side [facility] ID Date Data Source [id number] 12/11/2020 11:18:00 PM EST [facility] ([facility]) Name Value Range Interpretation Code Description Data Claribel rce(s) Supporting Document(s) bedside glucose 142 mg/dL 70-105 Above high normal [facility]side [facility]o se [facility] ID Date Data Source [id number] 12/11/2020 10:21:00 PM EST [facility] ([facility]) Name Value Range Interpretation Code Description Data Claribel rce(s) Supporting Document(s) bedside glucose 135 mg/dL 70-105 Above high normal [facility]side [facility]o se [facility] ID Date Data Source [id number] 12/11/2020 10:21:00 PM [facility] Name Value Range Interpretation Code Description Data Claribel rce(s) Supporting Document(s) bedside glucose 135 mg/dL 70-105 Above high normal Bedside Gluco se [facility] ([facility]) ID Date Data Source [id number] 12/11/2020 10:21:00 PM EST [facility] ([facility]) Name Value Range Interpretation Code Description Data Claribel rce(s) Supporting Document(s) bedside glucose 135 mg/dL 70-105 Above high normal Bedside Gluco se [facility] ([facility]) ID Date Data Source [id number] 12/11/2020 10:21:00 PM EST [facility] ([facility]) Name Value Range Interpretation Code Description Data Claribel rce(s) Supporting Document(s) bedside glucose 135 mg/dL 70-105 Above high normal Bedside Gluco se [place] ([facility]) ID Date Data Source [id number] 12/11/2020 10:21:00 PM EST [facility] ([facility]) Name Value Range Interpretation Code Description Data Claribel rce(s) Supporting Document(s) bedside glucose 135 mg/dL 70-105 Above high normal Bedside Gluco se [facility] ([facility]) ID Date Data Source [id number] 12/11/2020 10:21:00 PM EST [facility] ([facility]) Name Value Range Interpretation Code Description Data Claribel rce(s) Supporting Document(s) bedside glucose 135 mg/dL 70-105 Above high normal Bedside Gluco se [facility] ([facility]) ID Date Data Source [id number] 12/11/2020 09:17:00 PM [facility] Name Value Range Interpretation Code Description Data Claribel rce(s) Supporting Document(s) bedside glucose 146 mg/dL 70-105 Above high normal [facility]side [facility]o se [facility] ID Date Data Source [id number] 12/11/2020 09:17:00 PM EST [facility] ([facility]) Name Value Range Interpretation Code Description Data Claribel rce(s) Supporting Document(s) bedside glucose 146 mg/dL 70-105 Above high normal Bedside Gluco se [facility] ([facility]) ID Date Data Source [id number] 12/11/2020 09:17:00 PM EST [facility] ([facility]) Name Value Range Interpretation Code Description Data Claribel rce(s) Supporting Document(s) bedside glucose 146 mg/dL 70-105 Above high normal Bedside Gluco se [facility] ([facility]) ID Date Data Source [id number] 12/11/2020 09:17:00 PM EST [facility] ([facility]) Name Value Range Interpretation Code Description Data Claribel rce(s) Supporting Document(s) bedside glucose 146 mg/dL 70-105 Above high normal Bedside Gluco se [facility] ([facility]) ID Date Data Source [id number] 12/11/2020 09:17:00 PM EST [facility] ([facility]) Name Value Range Interpretation Code Description Data Claribel rce(s) Supporting Document(s) bedside glucose 146 mg/dL 70-105 Above high normal Bedside Gluco se [facility] ([facility]) ID Date Data Source [id number] 12/11/2020 09:17:00 PM EST [facility] ([facility]) Name Value Range Interpretation Code Description Data Claribel rce(s) Supporting Document(s) bedside glucose 146 mg/dL 70-105 Above high normal [facility] Date Data Source [id number] 12/11/2020 08:14:00 PM EST [facility] ([facility]) Name Value Range Interpretation Code Description Data Claribel rce(s) Supporting Document(s) bedside glucose 163 mg/dL 70-105 Above high normal Bedside Gluco se [facility] ([facility]) ID Date Data Source [id number] 12/11/2020 08:14:00 PM EST [facility] ([facility]) Name Value Range Interpretation Code Description Data Claribel rce(s) Supporting Document(s) bedside glucose 163 mg/dL 70-105 Above high normal Bedside Gluco se [facility] ([facility]) ID Date Data Source [id number] 12/11/2020 08:14:00 PM [facility] Name Value Range Interpretation Code Description Data Claribel rce(s) Supporting Document(s) bedside glucose 163 mg/dL 70-105 Above high normal Bedside Gluco se [facility]) ID Date Data Source [id number] 12/11/2020 08:14:00 PM EST [facility]) Name Value Range Interpretation Code Description Data Clarbiel rce(s) Supporting Document(s) bedside glucose 163 mg/dL 70-105 Above high normal [facility]side [facility]uco se [facility] ID Date Data Source [id number] 12/11/2020 08:14:00 PM EST [facility] ([facility]) Name Value Range Interpretation Code Description Data Claribel rce(s) Supporting Document(s) bedside glucose 163 mg/dL 70-105 Above high normal [facility]side [facility]o [facility] ID Date Data Source [id number] 12/11/2020 08:14:00 PM EST [facility] Name Value Range Interpretation Code Description Data Claribel rce(s) Supporting Document(s) bedside glucose 163 mg/dL 70-105 Above high normal Bedside [facility]uco se [facility] ID Date Data Source [id number] 12/11/2020 08:05:00 PM EST [facility] ([facility]) Name Value Range Interpretation Code Description Data Claribel rce(s) Supporting Document(s) magnesium level 1.6 mg/dL 1.8-2.4 Below low normal Magnesium Mona l [facility] ([facility]) ID Date Data Source [id number] 12/11/2020 08:05:00 PM EST [facility] ([facility]) Name Value Range Interpretation Code Description Data Claribel rce(s) Supporting Document(s) phosphorus level 1.8 mg/dL 2.5-4.9 Below low normal Phosphorus Le karma [facility] ([facility]) ID Date Data Source [id number] 12/11/2020 08:05:00 PM EST [facility] ([facility]) Name Value Range Interpretation Code Description Data Claribel rce(s) Supporting Document(s) glucose, fasting 162 mg/dL 70-100 Above high normal Glucose, Fas ting [place] ([facility]) blood urea nitrogen 14 mg/dL 7-18 Blood Urea Nitro gen [facility] ([facility]) creatinine for GFR 1.21 mg/dL 0.55-1.30 Creatinine for GF R [place] ([facility]) glomerular filtration rate >60 Below low normal Mariza merular Filtration Rate [facility] ([facility]) sodium level 142 mEq/L 136-145 Sodium Level [facility] ([facility]) chloride level 114 mEq/L 98-107 Above high normal Chloride Level [facility] ([facility]) potassium serum 3.6 mEq/L 3.5-5.1 Potassium Serum [place] [place] ([facility]) carbon dioxide level 19 mEq/L 21-32 Below low normal Carbon Di oxide Level [place] ([facility]) anion gap 9 mEq/L 8-16 Anion Gap [facility] ([facility]) calcium level 8.7 mg/dL 8.5-10.1 Calcium Level [place] ( [facility]) ID Date Data Source [id number] 12/11/2020 08:05:00 PM EST [facility] ([facility]) Name Value Range Interpretation Code Description Data Claribel rce(s) Supporting Document(s) magnesium level 1.6 mg/dL 1.8-2.4 Below low normal Magnesium Leve l [facility] ([facility]) ID Date Data Source [id number] 12/11/2020 08:05:00 PM EST [facility] ([facility]) Name Value Range Interpretation Code Description Data Claribel rce(s) Supporting Document(s) phosphorus level 1.8 mg/dL 2.5-4.9 Below low normal Phosphorus Le karma [facility] ([facility]) ID Date Data Source [id number] 12/11/2020 08:05:00 PM EST [facility] ([facility]) Name Value Range Interpretation Code Description Data Claribel rce(s) Supporting Document(s) glucose, fasting 162 mg/dL 70-100 Above high normal Glucose, Fas ting [place] ([facility]) blood urea nitrogen 14 mg/dL 7-18 Blood Urea Nitro gen [facility] ([facility]) glomerular filtration rate >60 Below low normal Mariza merular Filtration Rate [facility] ([facility]) creatinine for GFR 1.21 mg/dL 0.55-1.30 Creatinine for GF R [facility] ([facility]) chloride level 114 mEq/L 98-107 Above high normal Chloride Level [facility] ([facility]) potassium serum 3.6 mEq/L 3.5-5.1 Potassium Serum ATHE NA ([facility]) sodium level 142 mEq/L 136-145 Sodium Level [facility] ([facility]) carbon dioxide level 19 mEq/L 21-32 Below low normal Carbon Di oxide Level [facility] ([facility]) anion gap 9 mEq/L 8-16 Anion Gap [facility] ([facility]) calcium level 8.7 mg/dL 8.5-10.1 Calcium Level [place] ( [facility]) ID Date Data Source [id number] 12/11/2020 08:05:00 PM EST [facility] ([facility]) Name Value Range Interpretation Code Description Data Claribel rce(s) Supporting Document(s) magnesium level 1.6 mg/dL 1.8-2.4 Below low normal Magnesium Leve l [facility] ([facility]) ID Date Data Source [id number] 12/11/2020 08:05:00 PM EST [facility] ([facility]) Name Value Range Interpretation Code Description Data Claribel rce(s) Supporting Document(s) phosphorus level 1.8 mg/dL 2.5-4.9 Below low normal Phosphorus Le karma [facility] ([facility]) ID Date Data Source [id number] 12/11/2020 08:05:00 PM EST [facility] ([facility]) Name Value Range Interpretation Code Description Data Claribel rce(s) Supporting Document(s) blood urea nitrogen 14 mg/dL 7-18 Blood Urea Nitro gen [facility] ([facility]) glucose, fasting 162 mg/dL 70-100 Above high normal Glucose, Fas ting [facility] ([facility]) creatinine for GFR 1.21 mg/dL 0.55-1.30 Creatinine for GF R [place] ([facility]) glomerular filtration rate >60 Below low normal Mariza merular Filtration Rate [facility] ([facility]) sodium level 142 mEq/L 136-145 Sodium Level [facility] ([facility]) potassium serum 3.6 mEq/L 3.5-5.1 Potassium Serum [facility] NA ([facility]) chloride level 114 mEq/L 98-107 Above high normal Chloride Level [place] ([facility]) carbon dioxide level 19 mEq/L 21-32 Below low normal Carbon Di oxide Level [facility] ([facility]) calcium level 8.7 mg/dL 8.5-10.1 Calcium Level [place] ( [facility]) anion gap 9 mEq/L 8-16 Anion Gap [facility] ([facility]) ID Date Data Source [id number] 12/11/2020 08:05:00 PM EST [facility] ([facility]) Name Value Range Interpretation Code Description Data Claribel rce(s) Supporting Document(s) magnesium level 1.6 mg/dL 1.8-2.4 Below low normal Magnesium Leve l [facility] ([facility]) ID Date Data Source [id number] 12/11/2020 08:05:00 PM EST [facility] ([facility]) Name Value Range Interpretation Code Description Data Claribel rce(s) Supporting Document(s) phosphorus level 1.8 mg/dL 2.5-4.9 Below low normal Phosphorus Le karma [facility] ([facility]) ID Date Data Source [id number] 12/11/2020 08:05:00 PM EST [facility] ([facility]) Name Value Range Interpretation Code Description Data Claribel rce(s) Supporting Document(s) glucose, fasting 162 mg/dL 70-100 Above high normal Glucose, Fas ting [facility] ([facility]) creatinine for GFR 1.21 mg/dL 0.55-1.30 Creatinine for GF R [facility] ([facility]) blood urea nitrogen 14 mg/dL 7-18 Blood Urea Nitro gen [facility] ([facility]) potassium serum 3.6 mEq/L 3.5-5.1 Potassium Serum ATHE NA ([facility]) glomerular filtration rate >60 Below low normal Mariza merular Filtration Rate [facility] ([facility]) sodium level 142 mEq/L 136-145 Sodium Level [facility] ([facility]) carbon dioxide level 19 mEq/L 21-32 Below low normal Carbon Di oxide Level [facility] ([facility]) chloride level 114 mEq/L 98-107 Above high normal Chloride Level [facility] ([facility]) anion gap 9 mEq/L 8-16 Anion Gap [facility] ([facility]) calcium level 8.7 mg/dL 8.5-10.1 Calcium Level [place] ( [facility]) ID Date Data Source [id number] 12/11/2020 08:05:00 PM EST [facility] ([facility]) Name Value Range Interpretation Code Description Data Claribel rce(s) Supporting Document(s) magnesium level 1.6 mg/dL 1.8-2.4 Below low normal Magnesium Leve l [facility] ([facility]) ID Date Data Source [id number] 12/11/2020 08:05:00 PM EST [facility] ([facility]) Name Value Range Interpretation Code Description Data Claribel rce(s) Supporting Document(s) phosphorus level 1.8 mg/dL 2.5-4.9 Below low normal Phosphorus Le kamra [facility] ([facility]) ID Date Data Source [id number] 12/11/2020 08:05:00 PM EST [facility] ([facility]) Name Value Range Interpretation Code Description Data Claribel rce(s) Supporting Document(s) glucose, fasting 162 mg/dL 70-100 Above high normal Glucose, Fas ting [facility] ([facility]) blood urea nitrogen 14 mg/dL 7-18 Blood Urea Nitro gen [place] ([facility]) glomerular filtration rate >60 Below low normal Mariza merular Filtration Rate [facility] ([facility]) creatinine for GFR 1.21 mg/dL 0.55-1.30 Creatinine for GF R [facility] ([facility]) potassium serum 3.6 mEq/L 3.5-5.1 Potassium Serum [facility] NA ([facility]) sodium level 142 mEq/L 136-145 Sodium Level [facility] ([facility]) chloride level 114 mEq/L 98-107 Above high normal Chloride Level [facility] ([facility]) anion gap 9 mEq/L 8-16 Anion Gap [place] ([facility]) carbon dioxide level 19 mEq/L 21-32 Below low normal Carbon Di oxide Level [place] ([facility]) calcium level 8.7 mg/dL 8.5-10.1 Calcium Level [facility] ( [facility]) ID Date Data Source [id number] 12/11/2020 08:05:00 PM EST [facility] ([facility]) Name Value Range Interpretation Code Description Data Claribel rce(s) Supporting Document(s) magnesium level 1.6 mg/dL 1.8-2.4 Below low normal Magnesium Leve l [facility] ([facility]) ID Date Data Source [id number] 12/11/2020 08:05:00 PM EST [facility] ([facility]) Name Value Range Interpretation Code Description Data Claribel rce(s) Supporting Document(s) phosphorus level 1.8 mg/dL 2.5-4.9 Below low normal Phosphorus Le karma [facility] ([facility]) ID Date Data Source [id number] 12/11/2020 08:05:00 PM EST [facility] ([facility]) Name Value Range Interpretation Code Description Data Claribel rce(s) Supporting Document(s) blood urea nitrogen 14 mg/dL 7-18 Blood Urea Nitro gen [facility] ([facility]) glucose, fasting 162 mg/dL 70-100 Above high normal Glucose, Fas ting [facility] ([facility]) glomerular filtration rate >60 Below low normal Mariza merular Filtration Rate [facility] ([facility]) creatinine for GFR 1.21 mg/dL 0.55-1.30 Creatinine for GF R [facility] ([facility]) sodium level 142 mEq/L 136-145 Sodium Level [facility] ([facility]) potassium serum 3.6 mEq/L 3.5-5.1 Potassium Serum [facility] NA ([facility]) chloride level 114 mEq/L 98-107 Above high normal Chloride Level [place] ([facility]) anion gap 9 mEq/L 8-16 Anion Gap [facility] ([facility]) carbon dioxide level 19 mEq/L 21-32 Below low normal Carbon Di oxide Level [place] ([facility]) calcium level 8.7 mg/dL 8.5-10.1 Calcium Level [place] ( [facility]) ID Date Data Source [id number] 12/11/2020 07:18:00 PM EST [facility] ([facility]) Name Value Range Interpretation Code Description Data Claribel rce(s) Supporting Document(s) bedside glucose 160 mg/dL 70-105 Above high normal Bedside Gluco se [place] ([facility]) ID Date Data Source [id number] 12/11/2020 07:18:00 PM EST [place] ([facility]) Name Value Range Interpretation Code Description Data Claribel rce(s) Supporting Document(s) bedside glucose 160 mg/dL 70-105 Above high normal Bedside Gluco se [facility]) ID Date Data Source [id number] 12/11/2020 07:18:00 PM EST [facility]) Name Value Range Interpretation Code Description Data Claribel rce(s) Supporting Document(s) bedside glucose 160 mg/dL 70-105 Above high normal Bedside Gluco se [facility]) ID Date Data Source [id number] 12/11/2020 07:18:00 PM EST [facility] ([facility]) Name Value Range Interpretation Code Description Data Claribel rce(s) Supporting Document(s) bedside glucose 160 mg/dL 70-105 Above high normal Bedside Gluco se [facility]) ID Date Data Source [id number] 12/11/2020 07:18:00 [facility] Name Value Range Interpretation Code Description Data Claribel rce(s) Supporting Document(s) bedside glucose 160 mg/dL 70-105 Above high normal [facility] ID Date Data Source [id number] 12/11/2020 07:18:00 PM EST [facility] ([facility]) Name Value Range Interpretation Code Description Data Claribel rce(s) Supporting Document(s) bedside glucose 160 mg/dL 70-105 Above high normal Bedside Gluco se [facility] ([facility]) ID Date Data Source [id number] 12/11/2020 06:13:00 PM EST [facility] ([facility]) Name Value Range Interpretation Code Description Data Claribel rce(s) Supporting Document(s) bedside glucose 187 mg/dL 70-105 Above high normal Bedside Gluco se [facility] ([facility]) ID Date Data Source [id number] 12/11/2020 06:13:00 PM EST [facility] ([facility]) Name Value Range Interpretation Code Description Data Claribel rce(s) Supporting Document(s) bedside glucose 187 mg/dL 70-105 Above high normal Bedside Gluco se [facility] ([facility]) ID Date Data Source [id number] 12/11/2020 06:13:00 PM EST [facility] ([facility]) Name Value Range Interpretation Code Description Data Claribel rce(s) Supporting Document(s) bedside glucose 187 mg/dL 70-105 Above high normal Bedside Gluco se [facility] ([facility]) ID Date Data Source [id number] 12/11/2020 06:13:00 PM EST [facility] ([facility]) Name Value Range Interpretation Code Description Data Claribel rce(s) Supporting Document(s) bedside glucose 187 mg/dL 70-105 Above high normal Bedside Gluco se [facility] ([facility]) ID Date Data Source [id number] 12/11/2020 06:13:00 PM EST [facility] ([facility]) Name Value Range Interpretation Code Description Data Claribel rce(s) Supporting Document(s) bedside glucose 187 mg/dL 70-105 Above high normal Bedside Gluco se [facility] ([facility]) ID Date Data Source [id number] 12/11/2020 06:13:00 PM EST [facility] ([facility]) Name Value Range Interpretation Code Description Data Claribel rce(s) Supporting Document(s) bedside glucose 187 mg/dL 70-105 Above high normal Bedside Gluco se [facility] ([facility]) ID Date Data Source [id number] 12/11/2020 04:58:00 PM EST [facility] ([facility]) Name Value Range Interpretation Code Description Data Claribel rce(s) Supporting Document(s) bedside glucose 146 mg/dL 70-105 Above high normal Bedside Gluco se [facility] ([facility]) ID Date Data Source [id number] 12/11/2020 04:58:00 PM EST [facility] ([facility]) Name Value Range Interpretation Code Description Data Claribel rce(s) Supporting Document(s) bedside glucose 146 mg/dL 70-105 Above high normal Bedside Gluco se [facility] ([facility]) ID Date Data Source [id number] 12/11/2020 04:58:00 PM EST [facility] ([facility]) Name Value Range Interpretation Code Description Data Claribel rce(s) Supporting Document(s) bedside glucose 146 mg/dL 70-105 Above high normal [facility] Date Data Source [id number] 12/11/2020 04:58:00 PM EST [facility] ([facility]) Name Value Range Interpretation Code Description Data Claribel rce(s) Supporting Document(s) bedside glucose 146 mg/dL 70-105 Above high normal Bedside Gluco se [facility] ([facility]) ID Date Data Source [id number] 12/11/2020 04:58:00 PM EST [facility] ([facility]) Name Value Range Interpretation Code Description Data Claribel rce(s) Supporting Document(s) bedside glucose 146 mg/dL 70-105 Above high normal Bedside Gluco se [facility] ([facility]) ID Date Data Source [id number] 12/11/2020 04:58:00 PM EST [facility] ([facility]) Name Value Range Interpretation Code Description Data Claribel rce(s) Supporting Document(s) bedside glucose 146 mg/dL 70-105 Above high normal Bedside Gluco se [facility] ([facility]) ID Date Data Source [id number] 12/11/2020 04:56:00 PM EST [facility] ([facility]) Name Value Range Interpretation Code Description Data Claribel rce(s) Supporting Document(s) phosphorus level 1.9 mg/dL 2.5-4.9 Below low normal Phosphorus Le karma [facility] ([facility]) ID Date Data Source [id number] 12/11/2020 04:56:00 PM EST [facility] ([facility]) Name Value Range Interpretation Code Description Data Claribel rce(s) Supporting Document(s) glucose, fasting 169 mg/dL 70-100 Above high normal Glucose, Fas ting [facility] ([facility]) blood urea nitrogen 16 mg/dL 7-18 Blood Urea Nitro gen [facility] ([facility]) creatinine for GFR 1.19 mg/dL 0.55-1.30 Creatinine for GF R [place] ([facility]) glomerular filtration rate >60 Below low normal Marzia merular Filtration Rate [facility] ([facility]) sodium level 141 mEq/L 136-145 Sodium Level [facility] ([facility]) potassium serum 3.5 mEq/L 3.5-5.1 Potassium Serum ATHE NA ([facility]) chloride level 112 mEq/L 98-107 Above high normal Chloride Level [facility] ([facility]) carbon dioxide level 18 mEq/L 21-32 Below low normal Carbon Di oxide Level [facility] ([facility]) calcium level 8.6 mg/dL 8.5-10.1 Calcium Level [facility] ( [facility]) anion gap 11 mEq/L 8-16 Anion Gap [facility] ([facility]) ID Date Data Source [id number] 12/11/2020 04:56:00 PM EST [facility] ([facility]) Name Value Range Interpretation Code Description Data Claribel rce(s) Supporting Document(s) venous pH 7.305 units 7.330-7.430 Below low normal Venous pH [facility] ([facility]) venous partial pressure CO2 35.7 mmHg 38.0-50.0 Below low nor mal Venous Partial Pressure CO2 [facility] ([facility]) venous partial pressure O2 188.7 mmHg 30.0-50.0 Above high nor mal Venous Partial Pressure O2 [facility] ([facility]) venous total CO2 18.5 mEq/L 24.0-28.0 Below low normal Venous Total CO2 [facility] ([facility]) venous base excess -2.0-2.0 Below low normal Venous Base Excess [facility] ([facility]) venous HCO3 17.4 mEq/L 23.0-27.0 Below low normal Venous HCO3 [facility] ([facility]) venous standard HCO3 17.9 mEq/L Venous Standard HCO3 [facility] ([facility]) venous O2 saturation 99.3 % 60.0-80.0 Above high normal Venous O 2 Saturation [facility] ([facility]) ID Date Data Source [id number] 12/11/2020 04:56:00 PM EST [facility] ([facility]) Name Value Range Interpretation Code Description Data Claribel rce(s) Supporting Document(s) phosphorus level 1.9 mg/dL 2.5-4.9 Below low normal Phosphorus Le karma [facility] ([facility]) ID Date Data Source [id number] 12/11/2020 04:56:00 PM EST [facility] ([facility]) Name Value Range Interpretation Code Description Data Claribel rce(s) Supporting Document(s) glucose, fasting 169 mg/dL 70-100 Above high normal Glucose, Fas ting [place] ([facility]) creatinine for GFR 1.19 mg/dL 0.55-1.30 Creatinine for GF R [facility] ([facility]) blood urea nitrogen 16 mg/dL 7-18 Blood Urea Nitro gen [facility] ([facility]) glomerular filtration rate >60 Below low normal Mariza merular Filtration Rate [facility] ([facility]) sodium level 141 mEq/L 136-145 Sodium Level [facility] ([facility]) potassium serum 3.5 mEq/L 3.5-5.1 Potassium Serum [facility] ([facility]) chloride level 112 mEq/L 98-107 Above high normal Chloride Level [place] ([facility]) carbon dioxide level 18 mEq/L 21-32 Below low normal Carbon Di oxide Level [place] ([facility]) anion gap 11 mEq/L 8-16 Anion Gap [place] ([facility]) calcium level 8.6 mg/dL 8.5-10.1 Calcium Level [place] ( [facility]) ID Date Data Source [id number] 12/11/2020 04:56:00 PM EST [place] ([facility]) Name Value Range Interpretation Code Description Data Claribel rce(s) Supporting Document(s) venous pH 7.305 units 7.330-7.430 Below low normal Venous pH [place] ([facility]) venous partial pressure O2 188.7 mmHg 30.0-50.0 Above high nor mal Venous Partial Pressure O2 [place] ([facility]) venous partial pressure CO2 35.7 mmHg 38.0-50.0 Below low nor mal Venous Partial Pressure CO2 [facility] ([facility]) venous HCO3 17.4 mEq/L 23.0-27.0 Below low normal Venous HCO3 [place] ([facility]) venous total CO2 18.5 mEq/L 24.0-28.0 Below low normal Venous Total CO2 [facility] ([facility]) venous base excess -2.0-2.0 Below low normal Venous Base Excess [place] ([facility]) venous standard HCO3 17.9 mEq/L Venous Standard HCO3 [facility] ([facility]) venous O2 saturation 99.3 % 60.0-80.0 Above high normal Venous O 2 Saturation [place] ([facility]) ID Date Data Source [id number] 12/11/2020 04:56:00 PM EST [place] ([facility]) Name Value Range Interpretation Code Description Data Claribel rce(s) Supporting Document(s) phosphorus level 1.9 mg/dL 2.5-4.9 Below low normal Phosphorus Le karma [facility] ([facility]) ID Date Data Source [id number] 12/11/2020 04:56:00 PM EST [place] ([facility]) Name Value Range Interpretation Code Description Data Claribel rce(s) Supporting Document(s) glucose, fasting 169 mg/dL 70-100 Above high normal Glucose, Fas ting [place] ([facility]) creatinine for GFR 1.19 mg/dL 0.55-1.30 Creatinine for GF R [facility] ([facility]) blood urea nitrogen 16 mg/dL 7-18 Blood Urea Nitro gen [facility] ([facility]) sodium level 141 mEq/L 136-145 Sodium Level [facility] ([facility]) glomerular filtration rate >60 Below low normal Mariza merular Filtration Rate [facility] ([facility]) chloride level 112 mEq/L 98-107 Above high normal Chloride Level [place] ([facility]) potassium serum 3.5 mEq/L 3.5-5.1 Potassium Serum [facility] NA ([facility]) anion gap 11 mEq/L 8-16 Anion Gap [facility] ([facility]) carbon dioxide level 18 mEq/L 21-32 Below low normal Carbon Di oxide Level [facility] ([facility]) calcium level 8.6 mg/dL 8.5-10.1 Calcium Level [facility] ( [facility]) ID Date Data Source [id number] 12/11/2020 04:56:00 PM EST [facility] ([facility]) Name Value Range Interpretation Code Description Data Claribel rce(s) Supporting Document(s) venous partial pressure CO2 35.7 mmHg 38.0-50.0 Below low nor mal Venous Partial Pressure CO2 [facility] ([facility]) venous pH 7.305 units 7.330-7.430 Below low normal Venous pH [place] ([facility]) venous total CO2 18.5 mEq/L 24.0-28.0 Below low normal Venous Total CO2 [place] ([facility]) venous partial pressure O2 188.7 mmHg 30.0-50.0 Above high nor mal Venous Partial Pressure O2 [place] ([facility]) venous HCO3 17.4 mEq/L 23.0-27.0 Below low normal Venous HCO3 [place] ([facility]) venous standard HCO3 17.9 mEq/L Venous Standard HCO3 [place] ([facility]) venous base excess -2.0-2.0 Below low normal Venous Base Excess [place] ([facility]) venous O2 saturation 99.3 % 60.0-80.0 Above high normal Venous O 2 Saturation [facility] Clinics) ID Date Data Source [id number] 12/11/2020 04:56:00 PM EST [facility] ([facility]) Name Value Range Interpretation Code Description Data Claribel rce(s) Supporting Document(s) phosphorus level 1.9 mg/dL 2.5-4.9 Below low normal Phosphorus Le karma [facility] ([facility]) ID Date Data Source [id number] 12/11/2020 04:56:00 PM EST [facility] ([facility]) Name Value Range Interpretation Code Description Data Claribel rce(s) Supporting Document(s) glucose, fasting 169 mg/dL 70-100 Above high normal Glucose, Fas ting [place] ([facility]) blood urea nitrogen 16 mg/dL 7-18 Blood Urea Nitro gen [facility] ([facility]) creatinine for GFR 1.19 mg/dL 0.55-1.30 Creatinine for GF R [facility] ([facility]) sodium level 141 mEq/L 136-145 Sodium Level [facility] ([facility]) glomerular filtration rate >60 Below low normal Mariza merular Filtration Rate [facility] ([facility]) chloride level 112 mEq/L 98-107 Above high normal Chloride Level [facility] ([facility]) potassium serum 3.5 mEq/L 3.5-5.1 Potassium Serum [facility] NA ([facility]) carbon dioxide level 18 mEq/L 21-32 Below low normal Carbon Di oxide Level [facility] ([facility]) anion gap 11 mEq/L 8-16 Anion Gap [facility] ([facility]) calcium level 8.6 mg/dL 8.5-10.1 Calcium Level [place] ( [facility]) ID Date Data Source [id number] 12/11/2020 04:56:00 PM EST [facility] ([facility]) Name Value Range Interpretation Code Description Data Claribel rce(s) Supporting Document(s) venous partial pressure CO2 35.7 mmHg 38.0-50.0 Below low nor mal Venous Partial Pressure CO2 [facility] ([facility]) venous pH 7.305 units 7.330-7.430 Below low normal Venous pH [place] ([facility]) venous partial pressure O2 188.7 mmHg 30.0-50.0 Above high nor mal [facility] total CO2 18.5 mEq/L 24.0-28.0 Below low normal Venous Total CO2 [facility] ([facility]) venous HCO3 17.4 mEq/L 23.0-27.0 Below low normal Venous HCO3 [facility] ([facility]) venous standard HCO3 17.9 mEq/L Venous Standard HCO3 [place] ([facility]) venous base excess -2.0-2.0 Below low normal Venous Base Excess [place] ([facility]) venous O2 saturation 99.3 % 60.0-80.0 Above high normal Venous O 2 Saturation [place] ([facility]) ID Date Data Source [id number] 12/11/2020 04:56:00 PM EST [facility] ([facility]) Name Value Range Interpretation Code Description Data Claribel rce(s) Supporting Document(s) phosphorus level 1.9 mg/dL 2.5-4.9 Below low normal Phosphorus Le karma [facility] ([facility]) ID Date Data Source [id number] 12/11/2020 04:56:00 PM EST [facility] ([facility]) Name Value Range Interpretation Code Description Data Claribel rce(s) Supporting Document(s) glucose, fasting 169 mg/dL 70-100 Above high normal Glucose, Fas ting [facility] ([facility]) creatinine for GFR 1.19 mg/dL 0.55-1.30 Creatinine for GF R [place] ([facility]) blood urea nitrogen 16 mg/dL 7-18 Blood Urea Nitro gen [facility] ([facility]) glomerular filtration rate >60 Below low normal Mariza merular Filtration Rate [facility] ([facility]) sodium level 141 mEq/L 136-145 Sodium Level [facility] ([facility]) potassium serum 3.5 mEq/L 3.5-5.1 Potassium Serum [facility] NA ([facility]) chloride level 112 mEq/L 98-107 Above high normal Chloride Level [facility] ([facility]) anion gap 11 mEq/L 8-16 Anion Gap [facility] ([facility]) carbon dioxide level 18 mEq/L 21-32 Below low normal Carbon Di oxide Level [facility] ([facility]) calcium level 8.6 mg/dL 8.5-10.1 Calcium Level [place] ( [facility]) ID Date Data Source [id number] 12/11/2020 04:56:00 PM EST [facility] ([facility]) Name Value Range Interpretation Code Description Data Claribel rce(s) Supporting Document(s) venous pH 7.305 units 7.330-7.430 Below low normal Venous pH [place] ([facility]) venous partial pressure CO2 35.7 mmHg 38.0-50.0 Below low nor mal Venous Partial Pressure CO2 [facility] ([facility]) venous partial pressure O2 188.7 mmHg 30.0-50.0 Above high nor mal Venous Partial Pressure O2 [facility] ([facility]) venous total CO2 18.5 mEq/L 24.0-28.0 Below low normal Venous Total CO2 [facility] ([facility]) venous HCO3 17.4 mEq/L 23.0-27.0 Below low normal Venous HCO3 [facility] ([facility]) venous standard HCO3 17.9 mEq/L Venous Standard HCO3 [place] ([facility]) venous base excess -2.0-2.0 Below low normal Venous Base Excess [place] ([facility]) venous O2 saturation 99.3 % 60.0-80.0 Above high normal Venous O 2 Saturation [place] ([facility]) ID Date Data Source [id number] 12/11/2020 04:56:00 PM EST [place] ([facility]) Name Value Range Interpretation Code Description Data Claribel rce(s) Supporting Document(s) phosphorus level 1.9 mg/dL 2.5-4.9 Below low normal Phosphorus Le karma [place] ([facility]) ID Date Data Source [id number] 12/11/2020 04:56:00 PM EST [place] ([facility]) Name Value Range Interpretation Code Description Data Claribel rce(s) Supporting Document(s) glucose, fasting 169 mg/dL 70-100 Above high normal Glucose, Fas ting [place] ([facility]) blood urea nitrogen 16 mg/dL 7-18 Blood Urea Nitro gen [facility] ([facility]) creatinine for GFR 1.19 mg/dL 0.55-1.30 Creatinine for GF R [place] ([facility]) glomerular filtration rate >60 Below low normal Mariza merular Filtration Rate [facility] ([facility]) sodium level 141 mEq/L 136-145 Sodium Level [facility] ([facility]) potassium serum 3.5 mEq/L 3.5-5.1 Potassium Serum [facility] NA ([facility]) chloride level 112 mEq/L 98-107 Above high normal Chloride Level [facility] ([facility]) carbon dioxide level 18 mEq/L 21-32 Below low normal Carbon Di oxide Level [facility] ([facility]) calcium level 8.6 mg/dL 8.5-10.1 Calcium Level [facility] ( [facility]) anion gap 11 mEq/L 8-16 Anion Gap [facility] ([facility]) ID Date Data Source [id number] 12/11/2020 04:56:00 PM EST [facility] ([facility]) Name Value Range Interpretation Code Description Data Claribel rce(s) Supporting Document(s) venous pH 7.305 units 7.330-7.430 Below low normal Venous pH [facility] ([facility]) venous partial pressure CO2 35.7 mmHg 38.0-50.0 Below low nor mal Venous Partial Pressure CO2 [facility] ([facility]) venous total CO2 18.5 mEq/L 24.0-28.0 Below low normal Venous Total CO2 [facility] ([facility]) venous partial pressure O2 188.7 mmHg 30.0-50.0 Above high nor mal Venous Partial Pressure O2 [facility] ([facility]) venous HCO3 17.4 mEq/L 23.0-27.0 Below low normal Venous HCO3 [facility] ([facility]) venous base excess -2.0-2.0 Below low normal Venous Base Excess [facility] ([facility]) venous O2 saturation 99.3 % 60.0-80.0 Above high normal Venous O 2 Saturation [facility] ([facility]) venous standard HCO3 17.9 mEq/L Venous Standard HCO3 [facility] ([facility]) ID Date Data Source [id number] 12/11/2020 04:01:00 PM EST [facility] ([facility]) Name Value Range Interpretation Code Description Data Claribel rce(s) Supporting Document(s) bedside glucose 160 mg/dL 70-105 Above high normal Bedside Gluco se [facility] ([facility]) ID Date Data Source [id number] 12/11/2020 04:01:00 PM EST [facility] ([facility]) Name Value Range Interpretation Code Description Data Claribel rce(s) Supporting Document(s) bedside glucose 160 mg/dL 70-105 Above high normal Bedside Gluco se [facility] ([facility]) ID Date Data Source [id number] 12/11/2020 04:01:00 PM EST [facility] ([facility]) Name Value Range Interpretation Code Description Data Claribel rce(s) Supporting Document(s) bedside glucose 160 mg/dL 70-105 Above high normal Bedside Gluco se [facility] ([facility]) ID Date Data Source [id number] 12/11/2020 04:01:00 PM EST [facility] ([facility]) Name Value Range Interpretation Code Description Data Claribel rce(s) Supporting Document(s) bedside glucose 160 mg/dL 70-105 Above high normal Bedside Gluco se [facility] ([facility]) ID Date Data Source [id number] 12/11/2020 04:01:00 PM EST [facility] ([facility]) Name Value Range Interpretation Code Description Data Claribel rce(s) Supporting Document(s) bedside glucose 160 mg/dL 70-105 Above high normal Bedside Gluco se [facility] ([facility]) ID Date Data Source [id number] 12/11/2020 04:01:00 PM EST [facility] ([facility]) Name Value Range Interpretation Code Description Data Claribel rce(s) Supporting Document(s) bedside glucose 160 mg/dL 70-105 Above high normal Bedside Gluco se [facility] ([facility]) ID Date Data Source [id number] 12/11/2020 03:04:00 PM EST [facility] ([facility]) Name Value Range Interpretation Code Description Data Claribel rce(s) Supporting Document(s) bedside glucose 194 mg/dL 70-105 Above high normal Bedside Gluco se [facility] ([facility]) ID Date Data Source [id number] 12/11/2020 03:04:00 PM EST [facility] ([facility]) Name Value Range Interpretation Code Description Data Claribel rce(s) Supporting Document(s) bedside glucose 194 mg/dL 70-105 Above high normal Bedside Gluco se [facility] ([facility]) ID Date Data Source [id number] 12/11/2020 03:04:00 PM EST [facility] ([facility]) Name Value Range Interpretation Code Description Data Claribel rce(s) Supporting Document(s) bedside glucose 194 mg/dL 70-105 Above high normal Bedside Gluco se [facility] ([facility]) ID Date Data Source [id number] 12/11/2020 03:04:00 PM EST [facility] ([facility]) Name Value Range Interpretation Code Description Data Claribel rce(s) Supporting Document(s) bedside glucose 194 mg/dL 70-105 Above high normal Bedside Gluco se [facility] ([facility]) ID Date Data Source [id number] 12/11/2020 03:04:00 PM EST [facility] ([facility]) Name Value Range Interpretation Code Description Data Claribel rce(s) Supporting Document(s) bedside glucose 194 mg/dL 70-105 Above high normal Bedside Gluco se [facility] ([facility]) ID Date Data Source [id number] 12/11/2020 03:04:00 PM EST [facility] ([facility]) Name Value Range Interpretation Code Description Data Claribel rce(s) Supporting Document(s) bedside glucose 194 mg/dL 70-105 Above high normal Bedside Gluco se [facility] ([facility]) ID Date Data Source [id number] 12/11/2020 02:11:00 PM EST [facility] ([facility]) Name Value Range Interpretation Code Description Data Claribel rce(s) Supporting Document(s) bedside glucose 148 mg/dL 70-105 Above high normal Bedside Gluco se [place] ([facility]) ID Date Data Source [id number] 12/11/2020 02:11:00 PM EST [facility] ([facility]) Name Value Range Interpretation Code Description Data Claribel rce(s) Supporting Document(s) bedside glucose 148 mg/dL 70-105 Above high normal Bedside Gluco se [place] ([facility]) ID Date Data Source [id number] 12/11/2020 02:11:00 PM EST [facility] ([facility]) Name Value Range Interpretation Code Description Data Claribel rce(s) Supporting Document(s) bedside glucose 148 mg/dL 70-105 Above high normal Bedside Gluco se [place] ([facility]) ID Date Data Source [id number] 12/11/2020 [facility]:11[facility] Name Value Range Interpretation Code Description Data Claribel rce(s) Supporting Document(s) bedside glucose 148 mg/dL 70-105 Above high normal [facility]side [facility]o [facility] ID Date Data Source [id number] 12/11/2020 02:11:00 PM EST [facility] ([facility]) Name Value Range Interpretation Code Description Data Claribel rce(s) Supporting Document(s) bedside glucose 148 mg/dL 70-105 Above high normal Bedside Gluco se [facility]) ID Date Data Source [id number] 12/11/2020 02:11:00 PM EST [facility] ([facility]) Name Value Range Interpretation Code Description Data Claribel rce(s) Supporting Document(s) bedside glucose 148 mg/dL 70-105 Above high normal Bedside Gluco se [place] ([facility]) ID Date Data Source [id number] 12/11/2020 01:15:00 PM EST [facility] ([facility]) Name Value Range Interpretation Code Description Data Claribel rce(s) Supporting Document(s) bedside glucose 157 mg/dL 70-105 Above high normal Bedside Gluco se [facility] ([facility]) ID Date Data Source [id number] 12/11/2020 01:15:00 PM EST [facility] ([facility]) Name Value Range Interpretation Code Description Data Claribel rce(s) Supporting Document(s) bedside glucose 157 mg/dL 70-105 Above high normal Bedside Gluco se [place] ([facility]) ID Date Data Source [id number] 12/11/2020 01:15:00 PM EST [facility] ([facility]) Name Value Range Interpretation Code Description Data Claribel rce(s) Supporting Document(s) bedside glucose 157 mg/dL 70-105 Above high normal Bedside Gluco se [facility] ([facility]) ID Date Data Source [id number] 12/11/2020 01:15:00 PM EST [facility] ([facility]) Name Value Range Interpretation Code Description Data Claribel rce(s) Supporting Document(s) bedside glucose 157 mg/dL 70-105 Above high normal Bedside Gluco se [facility] ([facility]) ID Date Data Source [id number] 12/11/2020 01:15:00 PM EST [facility]) Name Value Range Interpretation Code Description Data Claribel rce(s) Supporting Document(s) bedside glucose 157 mg/dL 70-105 Above high normal Bedside Gluco se [facility] ([facility]) ID Date Data Source [id number] 12/11/2020 01:15:00 PM EST [facility] ([facility]) Name Value Range Interpretation Code Description Data Claribel rce(s) Supporting Document(s) bedside glucose 157 mg/dL 70-105 Above high normal Bedside Gluco se [facility] ([facility]) ID Date Data Source [id number] 12/11/2020 01:05:00 PM EST [facility] ([facility]) Name Value Range Interpretation Code Description Data Claribel rce(s) Supporting Document(s) osmolality serum 306 mOsm/kg 275-295 Above high normal Osmolality Serum [place] ([facility]) ID Date Data Source [id number] 12/11/2020 01:05:00 PM EST [facility] ([facility]) Name Value Range Interpretation Code Description Data Claribel rce(s) Supporting Document(s) phosphorus level 2.2 mg/dL 2.5-4.9 Below low normal Phosphorus Le karma [facility] ([facility]) ID Date Data Source [id number] 12/11/2020 01:05:00 PM EST [facility] ([facility]) Name Value Range Interpretation Code Description Data Claribel rce(s) Supporting Document(s) glucose, fasting 181 mg/dL 70-100 Above high normal Glucose, Fas ting [facility] ([facility]) blood urea nitrogen 18 mg/dL 7-18 Blood Urea Nitro gen [facility] ([facility]) creatinine for GFR 1.28 mg/dL 0.55-1.30 Creatinine for GF R [place] ([facility]) glomerular filtration rate >60 Below low normal Mariza merular Filtration Rate [facility] ([facility]) sodium level 141 mEq/L 136-145 Sodium Level [facility] (No [facility]) potassium serum 3.4 mEq/L 3.5-5.1 Below low normal Potassium Seru m [facility] ([facility]) chloride level 112 mEq/L 98-107 Above high normal Chloride Level [facility] ([facility]) carbon dioxide level 18 mEq/L 21-32 Below low normal Carbon Di oxide Level [place] ([facility]) anion gap 11 mEq/L 8-16 Anion Gap [facility] ([facility]) calcium level 8.6 mg/dL 8.5-10.1 Calcium Level [place] ( [facility]) ID Date Data Source [id number] 12/11/2020 01:05:00 PM EST [facility] ([facility]) Name Value Range Interpretation Code Description Data Claribel rce(s) Supporting Document(s) venous pH 7.238 units 7.330-7.430 Below low normal Venous pH [place] ([facility]) venous partial pressure CO2 35.2 mmHg 38.0-50.0 Below low nor mal Venous Partial Pressure CO2 [place] ([facility]) venous partial pressure O2 105.8 mmHg 30.0-50.0 Above high nor mal Venous Partial Pressure O2 [place] ([facility]) venous total CO2 15.8 mEq/L 24.0-28.0 Below low normal Venous Total CO2 [place] ([facility]) venous HCO3 14.7 mEq/L 23.0-27.0 Below low normal Venous HCO3 [facility] ([facility]) venous base excess -2.0-2.0 Below low normal Venous Base Excess [facility] ([facility]) venous standard HCO3 15.2 mEq/L Venous Standard HCO3 [facility] ([facility]) venous O2 saturation 97.8 % 60.0-80.0 Above high normal Venous O 2 Saturation [place] ([facility]) ID Date Data Source [id number] 12/11/2020 01:05:00 PM EST [facility] ([facility]) Name Value Range Interpretation Code Description Data Claribel rce(s) Supporting Document(s) osmolality serum 306 mOsm/kg 275-295 Above high normal Osmolality Serum [facility]) ID Date Data Source [id number] 12/11/2020 01:05:00 PM EST [facility] ([facility]) Name Value Range Interpretation Code Description Data Claribel rce(s) Supporting Document(s) phosphorus level 2.2 mg/dL 2.5-4.9 Below low normal Phosphorus Le karma [facility] ([facility]) ID Date Data Source [id number] 12/11/2020 01:05:00 PM EST [facility] ([facility]) Name Value Range Interpretation Code Description Data Claribel rce(s) Supporting Document(s) blood urea nitrogen 18 mg/dL 7-18 Blood Urea Nitro gen [facility] ([facility]) glucose, fasting 181 mg/dL 70-100 Above high normal Glucose, Fas ting [facility] ([facility]) glomerular filtration rate >60 Below low normal Mariza merular Filtration Rate [facility] ([facility]) creatinine for GFR 1.28 mg/dL 0.55-1.30 Creatinine for GF R [facility] ([facility]) sodium level 141 mEq/L 136-145 Sodium Level [facility] ([facility]) potassium serum 3.4 mEq/L 3.5-5.1 Below low normal Potassium Seru m [facility] ([facility]) chloride level 112 mEq/L 98-107 Above high normal Chloride Level [place] ([facility]) carbon dioxide level 18 mEq/L 21-32 Below low normal Carbon Di oxide Level [place] ([facility]) anion gap 11 mEq/L 8-16 Anion Gap [facility] ([facility]) calcium level 8.6 mg/dL 8.5-10.1 Calcium Level [facility] ( [facility]) ID Date Data Source [id number] 12/11/2020 01:05:00 PM EST [facility] ([facility]) Name Value Range Interpretation Code Description Data Claribel rce(s) Supporting Document(s) venous pH 7.238 units 7.330-7.430 Below low normal Venous pH [facility] ([facility]) venous partial pressure CO2 35.2 mmHg 38.0-50.0 Below low nor mal Venous Partial Pressure CO2 [facility] ([facility]) venous partial pressure O2 105.8 mmHg 30.0-50.0 Above high nor mal Venous Partial Pressure O2 [facility] ([facility]) venous total CO2 15.8 mEq/L 24.0-28.0 Below low normal Venous Total CO2 [facility] ([facility]) venous HCO3 14.7 mEq/L 23.0-27.0 Below low normal Venous HCO3 [facility] ([facility]) venous base excess -2.0-2.0 Below low normal Venous Base Excess [place] ([facility]) venous standard HCO3 15.2 mEq/L Venous Standard HCO3 [place] ([facility]) venous O2 saturation 97.8 % 60.0-80.0 Above high normal Venous O 2 Saturation [place] ([facility]) ID Date Data Source [id number] 12/11/2020 01:05:00 PM EST [facility] ([facility]) Name Value Range Interpretation Code Description Data Claribel rce(s) Supporting Document(s) osmolality serum 306 mOsm/kg 275-295 Above high normal Osmolality Serum [place] ([facility]) ID Date Data Source [id number] 12/11/2020 01:05:00 PM EST [facility] ([facility]) Name Value Range Interpretation Code Description Data Claribel rce(s) Supporting Document(s) phosphorus level 2.2 mg/dL 2.5-4.9 Below low normal Phosphorus Le karma [facility] ([facility]) ID Date Data Source [id number] 12/11/2020 01:05:00 PM EST [facility] ([facility]) Name Value Range Interpretation Code Description Data Claribel rce(s) Supporting Document(s) glucose, fasting 181 mg/dL 70-100 Above high normal Glucose, Fas ting [place] ([facility]) blood urea nitrogen 18 mg/dL 7-18 Blood Urea Nitro gen [facility] ([facility]) glomerular filtration rate >60 Below low normal Mariza merular Filtration Rate [facility] ([facility]) creatinine for GFR 1.28 mg/dL 0.55-1.30 Creatinine for GF R [facility] ([facility]) sodium level 141 mEq/L 136-145 Sodium Level [facility] ([facility]) potassium serum 3.4 mEq/L 3.5-5.1 Below low normal Potassium Seru m [facility] ([facility]) chloride level 112 mEq/L 98-107 Above high normal Chloride Level [facility] ([facility]) carbon dioxide level 18 mEq/L 21-32 Below low normal Carbon Di oxide Level [place] [place] ([facility]) anion gap 11 mEq/L 8-16 Anion Gap [place] ([facility]) calcium level 8.6 mg/dL 8.5-10.1 Calcium Level [place] ( [facility]) ID Date Data Source [id number] 12/11/2020 01:05:00 PM EST [place] ([facility]) Name Value Range Interpretation Code Description Data Claribel rce(s) Supporting Document(s) venous pH 7.238 units 7.330-7.430 Below low normal Venous pH [place] ([facility]) venous partial pressure CO2 35.2 mmHg 38.0-50.0 Below low nor mal Venous Partial Pressure CO2 [place] ([facility]) venous total CO2 15.8 mEq/L 24.0-28.0 Below low normal Venous Total CO2 [facility] ([facility]) venous partial pressure O2 105.8 mmHg 30.0-50.0 Above high nor mal Venous Partial Pressure O2 [facility] ([facility]) venous HCO3 14.7 mEq/L 23.0-27.0 Below low normal Venous HCO3 [facility]) venous base excess -2.0-2.0 Below low normal Venous Base Excess [place] ([facility]) venous O2 saturation 97.8 % 60.0-80.0 Above high normal Venous O 2 Saturation [place] ([facility]) venous standard HCO3 15.2 mEq/L Venous Standard HCO3 [place] ([facility]) ID Date Data Source [id number] 12/11/2020 01:05:00 PM EST [facility] ([facility]) Name Value Range Interpretation Code Description Data Claribel rce(s) Supporting Document(s) osmolality serum 306 mOsm/kg 275-295 Above high normal Osmolality Serum [place] ([facility]) ID Date Data Source [id number] 12/11/2020 01:05:00 PM EST [facility] ([facility]) Name Value Range Interpretation Code Description Data Claribel rce(s) Supporting Document(s) phosphorus level 2.2 mg/dL 2.5-4.9 Below low normal Phosphorus Le karma [facility] ([facility]) ID Date Data Source [id number] 12/11/2020 01:05:00 PM EST [facility] ([facility]) Name Value Range Interpretation Code Description Data Claribel rce(s) Supporting Document(s) glucose, fasting 181 mg/dL 70-100 Above high normal Glucose, Fas ting [place] ([facility]) blood urea nitrogen 18 mg/dL 7-18 Blood Urea Nitro gen [place] ([facility]) creatinine for GFR 1.28 mg/dL 0.55-1.30 Creatinine for GF R [place] ([facility]) glomerular filtration rate >60 Below low normal Mariza merular Filtration Rate [facility] ([facility]) potassium serum 3.4 mEq/L 3.5-5.1 Below low normal Potassium Seru m [facility] ([facility]) sodium level 141 mEq/L 136-145 Sodium Level [facility] ([facility]) chloride level 112 mEq/L 98-107 Above high normal Chloride Level [facility] ([facility]) carbon dioxide level 18 mEq/L 21-32 Below low normal Carbon Di oxide Level [facility] ([facility]) anion gap 11 mEq/L 8-16 Anion Gap [place] ([facility]) calcium level 8.6 mg/dL 8.5-10.1 Calcium Level [facility] ( [facility]) ID Date Data Source [id number] 12/11/2020 01:05:00 PM EST [facility] ([facility]) Name Value Range Interpretation Code Description Data Claribel rce(s) Supporting Document(s) venous pH 7.238 units 7.330-7.430 Below low normal Venous pH [facility] ([facility]) venous partial pressure CO2 35.2 mmHg 38.0-50.0 Below low nor mal Venous Partial Pressure CO2 [facility] ([facility]) venous partial pressure O2 105.8 mmHg 30.0-50.0 Above high nor mal Venous Partial Pressure O2 [facility] ([facility]) venous total CO2 15.8 mEq/L 24.0-28.0 Below low normal Venous Total CO2 [facility] ([facility]) venous HCO3 14.7 mEq/L 23.0-27.0 Below low normal Venous HCO3 [facility] ([facility]) venous base excess -2.0-2.0 Below low normal Venous Base Excess [place] ([facility]) venous O2 saturation 97.8 % 60.0-80.0 Above high normal Venous O 2 Saturation [place] ([facility]) venous standard HCO3 15.2 mEq/L Venous Standard HCO3 [facility] ([facility]) ID Date Data Source [id number] 12/11/2020 01:05:00 PM EST [facility] ([facility]) Name Value Range Interpretation Code Description Data Claribel rce(s) Supporting Document(s) osmolality serum 306 mOsm/kg 275-295 Above high normal Osmolality Serum [facility] ([facility]) ID Date Data Source [id number] 12/11/2020 01:05:00 PM EST [facility] ([facility]) Name Value Range Interpretation Code Description Data Claribel rce(s) Supporting Document(s) phosphorus level 2.2 mg/dL 2.5-4.9 Below low normal Phosphorus Le karma [facility] ([facility]) ID Date Data Source [id number] 12/11/2020 01:05:00 PM EST [facility] ([facility]) Name Value Range Interpretation Code Description Data Claribel rce(s) Supporting Document(s) glucose, fasting 181 mg/dL 70-100 Above high normal Glucose, Fas ting [place] ([facility]) blood urea nitrogen 18 mg/dL 7-18 Blood Urea Nitro gen [place] ([facility]) creatinine for GFR 1.28 mg/dL 0.55-1.30 Creatinine for GF R [place] ([facility]) sodium level 141 mEq/L 136-145 Sodium Level [place] ([facility]) glomerular filtration rate >60 Below low normal Mariza merular Filtration Rate [place] ([facility]) potassium serum 3.4 mEq/L 3.5-5.1 Below low normal Potassium Seru m [place] ([facility]) chloride level 112 mEq/L 98-107 Above high normal Chloride Level [place] ([facility]) carbon dioxide level 18 mEq/L 21-32 Below low normal Carbon Di oxide Level [place] ([facility]) anion gap 11 mEq/L 8-16 Anion Gap [place] ([facility]) calcium level 8.6 mg/dL 8.5-10.1 Calcium Level [place] ( [facility]) ID Date Data Source [id number] 12/11/2020 01:05:00 PM EST [facility] ([facility]) Name Value Range Interpretation Code Description Data Claribel rce(s) Supporting Document(s) venous pH 7.238 units 7.330-7.430 Below low normal Venous pH [place] ([facility]) venous partial pressure CO2 35.2 mmHg 38.0-50.0 Below low nor mal Venous Partial Pressure CO2 [place] ([facility]) venous partial pressure O2 105.8 mmHg 30.0-50.0 Above high nor mal Venous Partial Pressure O2 [facility]) venous HCO3 14.7 mEq/L 23.0-27.0 Below low normal Venous HCO3 [place] ([facility]) venous total CO2 15.8 mEq/L 24.0-28.0 Below low normal Venous Total CO2 [facility] ([facility]) venous base excess -2.0-2.0 Below low normal Venous Base Excess [facility] ([facility]) venous standard HCO3 15.2 mEq/L Venous Standard HCO3 [facility] ([facility]) venous O2 saturation 97.8 % 60.0-80.0 Above high normal Venous O 2 Saturation [place] ([facility]) ID Date Data Source [id number] 12/11/2020 01:05:00 PM EST [facility] ([facility]) Name Value Range Interpretation Code Description Data Claribel rce(s) Supporting Document(s) osmolality serum 306 mOsm/kg 275-295 Above high normal Osmolality Serum [place] [place] ([facility]) ID Date Data Source [id number] 12/11/2020 01:05:00 PM EST [facility] ([facility]) Name Value Range Interpretation Code Description Data Claribel rce(s) Supporting Document(s) phosphorus level 2.2 mg/dL 2.5-4.9 Below low normal Phosphorus Le karma [facility] ([facility]) ID Date Data Source [id number] 12/11/2020 01:05:00 PM EST [facility] ([facility]) Name Value Range Interpretation Code Description Data Claribel rce(s) Supporting Document(s) blood urea nitrogen 18 mg/dL 7-18 Blood Urea Nitro gen [facility] ([facility]) glucose, fasting 181 mg/dL 70-100 Above high normal Glucose, Fas ting [facility] ([facility]) creatinine for GFR 1.28 mg/dL 0.55-1.30 Creatinine for GF R [place] ([facility]) glomerular filtration rate >60 Below low normal Mariza merular Filtration Rate [facility] ([facility]) sodium level 141 mEq/L 136-145 Sodium Level [facility] ([facility]) chloride level 112 mEq/L 98-107 Above high normal Chloride Level [facility] ([facility]) potassium serum 3.4 mEq/L 3.5-5.1 Below low normal Potassium Seru m [facility] ([facility]) anion gap 11 mEq/L 8-16 Anion Gap [facility] ([facility]) carbon dioxide level 18 mEq/L 21-32 Below low normal Carbon Di oxide Level [facility] ([facility]) calcium level 8.6 mg/dL 8.5-10.1 Calcium Level [place] ( [facility]) ID Date Data Source [id number] 12/11/2020 01:05:00 PM EST [place] ([facility]) Name Value Range Interpretation Code Description Data Claribel rce(s) Supporting Document(s) venous pH 7.238 units 7.330-7.430 Below low normal Venous pH [place] ([facility]) venous partial pressure CO2 35.2 mmHg 38.0-50.0 Below low nor mal Venous Partial Pressure CO2 [place] ([facility]) venous partial pressure O2 105.8 mmHg 30.0-50.0 Above high nor mal Venous Partial Pressure O2 [place] ([facility]) venous total CO2 15.8 mEq/L 24.0-28.0 Below low normal Venous Total CO2 [facility] ([facility]) venous base excess -2.0-2.0 Below low normal Venous Base Excess [facility] ([facility]) venous HCO3 14.7 mEq/L 23.0-27.0 Below low normal Venous HCO3 [place] ([facility]) venous standard HCO3 15.2 mEq/L Venous Standard HCO3 [place] ([facility]) venous O2 saturation 97.8 % 60.0-80.0 Above high normal Venous O 2 Saturation [place] ([facility]) ID Date Data Source [id number] 12/11/2020 12:13:00 PM EST [facility] ([facility]) Name Value Range Interpretation Code Description Data Claribel rce(s) Supporting Document(s) bedside glucose 162 mg/dL 70-105 Above high normal Bedside Gluco se [place] ([facility]) ID Date Data Source [id number] 12/11/2020 12:13:00 PM EST [facility] ([facility]) Name Value Range Interpretation Code Description Data Claribel rce(s) Supporting Document(s) bedside glucose 162 mg/dL 70-105 Above high normal Bedside Gluco se [facility] ([facility]) ID Date Data Source [id number] 12/11/2020 12:13:00 PM EST [facility] ([facility]) Name Value Range Interpretation Code Description Data Claribel rce(s) Supporting Document(s) bedside glucose 162 mg/dL 70-105 Above high normal Bedside Gluco se [facility] ([facility]) ID Date Data Source [id number] 12/11/2020 12:13:00 PM EST [facility] ([facility]) Name Value Range Interpretation Code Description Data Claribel rce(s) Supporting Document(s) bedside glucose 162 mg/dL 70-105 Above high normal Bedside Gluco se [facility] ([facility]) ID Date Data Source [id number] 12/11/2020 12:13:00 PM EST [facility] ([facility]) Name Value Range Interpretation Code Description Data Claribel rce(s) Supporting Document(s) bedside glucose 162 mg/dL 70-105 Above high normal Bedside Gluco se [facility] ([facility]) ID Date Data Source [id number] 12/11/2020 12:13:00 PM EST [facility] ([facility]) Name Value Range Interpretation Code Description Data Claribel rce(s) Supporting Document(s) bedside glucose 162 mg/dL 70-105 Above high normal Bedside Gluco se [facility] ([facility]) ID Date Data Source [id number] 12/11/2020 11:07:00 AM EST [facility] ([facility]) Name Value Range Interpretation Code Description Data Claribel rce(s) Supporting Document(s) bedside glucose 146 mg/dL 70-105 Above high normal Bedside Gluco se [facility] ([facility]) ID Date Data Source [id number] 12/11/2020 11:07:00 AM EST [facility] ([facility]) Name Value Range Interpretation Code Description Data Claribel rce(s) Supporting Document(s) bedside glucose 146 mg/dL 70-105 Above high normal Bedside Gluco se [facility] ([facility]) ID Date Data Source [id number] 12/11/2020 11:07:00 AM EST [facility] ([facility]) Name Value Range Interpretation Code Description Data Claribel rce(s) Supporting Document(s) bedside glucose 146 mg/dL 70-105 Above high normal [facility] Data Source [id number] 12/11/2020 11:07:00 AM EST [facility]) Name Value Range Interpretation Code Description Data Claribel rce(s) Supporting Document(s) bedside glucose 146 mg/dL 70-105 Above high normal [facility] ID Date Data Source [id number] 12/11/2020 11:07:00 AM EST [facility] ([facility]) Name Value Range Interpretation Code Description Data Claribel rce(s) Supporting Document(s) bedside glucose 146 mg/dL 70-105 Above high normal [facility] ID Date Data Source [id number] 12/11/2020 11:07:00 AM EST [facility]) Name Value Range Interpretation Code Description Data Claribel rce(s) Supporting Document(s) bedside glucose 146 mg/dL 70-105 Above high normal [facility] ID Date Data Source [id number] 12/11/2020 10:19:00 AM EST [facility] ([facility]) Name Value Range Interpretation Code Description Data Claribel rce(s) Supporting Document(s) bedside glucose 159 mg/dL 70-105 Above high normal Bedside Gluco se [facility] ([facility]) ID Date Data Source [id number] 12/11/2020 10:19:00 AM EST [facility] ([facility]) Name Value Range Interpretation Code Description Data Claribel rce(s) Supporting Document(s) bedside glucose 159 mg/dL 70-105 Above high normal Bedside Gluco se [facility] ([facility]) ID Date Data Source [id number] 12/11/2020 10:19:00 AM EST [facility] ([facility]) Name Value Range Interpretation Code Description Data Claribel rce(s) Supporting Document(s) bedside glucose 159 mg/dL 70-105 Above high normal Bedside Gluco se [facility] ([facility]) ID Date Data Source [id number] 12/11/2020 10:19:00 AM EST [facility] ([facility]) Name Value Range Interpretation Code Description Data Claribel rce(s) Supporting Document(s) bedside glucose 159 mg/dL 70-105 Above high normal Bedside Gluco se [facility] ([facility]) ID Date Data Source [id number] 12/11/2020 10:19:00 AM EST [facility] ([facility]) Name Value Range Interpretation Code Description Data Claribel rce(s) Supporting Document(s) bedside glucose 159 mg/dL 70-105 Above high normal Bedside Gluco se [facility] ([facility]) ID Date Data Source [id number] 12/11/2020 10:19:00 AM EST [facility] ([facility]) Name Value Range Interpretation Code Description Data Claribel rce(s) Supporting Document(s) bedside glucose 159 mg/dL 70-105 Above high normal Bedside Gluco se [facility] ([facility]) ID Date Data Source [id number] 12/11/2020 09:01:00 AM EST [facility] ([facility]) Name Value Range Interpretation Code Description Data Claribel rce(s) Supporting Document(s) bedside glucose 189 mg/dL 70-105 Above high normal Bedside Gluco se [facility] ([facility]) ID Date Data Source [id number] 12/11/2020 09:01:00 AM EST [facility] ([facility]) Name Value Range Interpretation Code Description Data Claribel rce(s) Supporting Document(s) bedside glucose 189 mg/dL 70-105 Above high normal Bedside Gluco se [facility] ([facility]) ID Date Data Source [id number] 12/11/2020 09:01:00 AM EST [facility] ([facility]) Name Value Range Interpretation Code Description Data Claribel rce(s) Supporting Document(s) bedside glucose 189 mg/dL 70-105 Above high normal Bedside Gluco se [facility] ([facility]) ID Date Data Source [id number] 12/11/2020 09:01:00 AM EST [facility] ([facility]) Name Value Range Interpretation Code Description Data Claribel rce(s) Supporting Document(s) bedside glucose 189 mg/dL 70-105 Above high normal Bedside Gluco se [facility] ([facility]) ID Date Data Source [id number] 12/11/2020 09:01:00 AM EST [facility] ([facility]) Name Value Range Interpretation Code Description Data Claribel rce(s) Supporting Document(s) bedside glucose 189 mg/dL 70-105 Above high normal Bedside Gluco se [facility] ([facility]) ID Date Data Source [id number] 12/11/2020 09:01:00 AM EST [facility] ([facility]) Name Value Range Interpretation Code Description Data Claribel rce(s) Supporting Document(s) bedside glucose 189 mg/dL 70-105 Above high normal Bedside Gluco se [facility] ([facility]) ID Date Data Source [id number] 12/11/2020 08:13:00 AM EST [facility] ([facility]) Name Value Range Interpretation Code Description Data Claribel rce(s) Supporting Document(s) bedside glucose 168 mg/dL 70-105 Above high normal Bedside Gluco se [place] ([facility]) ID Date Data Source [id number] 12/11/2020 08:13:00 AM EST [facility] ([facility]) Name Value Range Interpretation Code Description Data Claribel rce(s) Supporting Document(s) bedside glucose 168 mg/dL 70-105 Above high normal Bedside Gluco se [facility] ([facility]) ID Date Data Source [id number] 12/11/2020 08:13:00 AM EST [facility] ([facility]) Name Value Range Interpretation Code Description Data Claribel rce(s) Supporting Document(s) bedside glucose 168 mg/dL 70-105 Above high normal Bedside Gluco se [facility] ([facility]) ID Date Data Source [id number] 12/11/2020 08:13:00 AM EST [facility] ([facility]) Name Value Range Interpretation Code Description Data Claribel rce(s) Supporting Document(s) bedside glucose 168 mg/dL 70-105 Above high normal [facility] ID Date Data Source [id number] 12/11/2020 08:13:00 AM EST [facility] ([facility]) Name Value Range Interpretation Code Description Data Claribel rce(s) Supporting Document(s) bedside glucose 168 mg/dL 70-105 Above high normal Bedside Gluco se [facility] ([facility]) ID Date Data Source [id number] 12/11/2020 08:13:00 AM EST [facility] ([facility]) Name Value Range Interpretation Code Description Data Claribel rce(s) Supporting Document(s) bedside glucose 168 mg/dL 70-105 Above high normal Bedside Gluco se [facility] ([facility]) ID Date Data Source [id number] 12/11/2020 07:57:00 AM EST [facility] ([facility]) Name Value Range Interpretation Code Description Data Claribel rce(s) Supporting Document(s) phosphorus level 1.6 mg/dL 2.5-4.9 Below low normal Phosphorus Le karma [facility] ([facility]) ID Date Data Source [id number] 12/11/2020 07:57:00 AM EST [facility] ([facility]) Name Value Range Interpretation Code Description Data Claribel rce(s) Supporting Document(s) glucose, fasting 178 mg/dL 70-100 Above high normal Glucose, Fas ting [facility] ([facility]) blood urea nitrogen 22 mg/dL 7-18 Above high normal Blood Ure a Nitrogen [facility] ([facility]) creatinine for GFR 1.43 mg/dL 0.55-1.30 Above high normal Creatinine for GFR [facility] ([facility]) glomerular filtration rate >60 Below low normal Mariza merular Filtration Rate [facility] ([facility]) sodium level 141 mEq/L 136-145 Sodium Level [facility] ([facility]) chloride level 112 mEq/L 98-107 Above high normal Chloride Level [facility] ([facility]) potassium serum 3.7 mEq/L 3.5-5.1 Potassium Serum [facility] ([facility]) carbon dioxide level 17 mEq/L 21-32 Below low normal Carbon Di oxide Level [facility] ([facility]) anion gap 12 mEq/L 8-16 Anion Gap [facility] ([facility]) calcium level 8.8 mg/dL 8.5-10.1 Calcium Level [facility] ( [facility]) ID Date Data Source [id number] 12/11/2020 07:57:00 AM EST [facility] ([facility]) Name Value Range Interpretation Code Description Data Claribel rce(s) Supporting Document(s) phosphorus level 1.6 mg/dL 2.5-4.9 Below low normal Phosphorus Le karma [facility] ([facility]) ID Date Data Source [id number] 12/11/2020 07:57:00 AM EST [facility] ([facility]) Name Value Range Interpretation Code Description Data Claribel rce(s) Supporting Document(s) glucose, fasting 178 mg/dL 70-100 Above high normal Glucose, Fas ting [facility] ([facility]) blood urea nitrogen 22 mg/dL 7-18 Above high normal Blood Ure a Nitrogen [facility] ([facility]) creatinine for GFR 1.43 mg/dL 0.55-1.30 Above high normal Creatinine for GFR [facility] ([facility]) glomerular filtration rate >60 Below low normal Mariza merular Filtration Rate [facility] ([facility]) potassium serum 3.7 mEq/L 3.5-5.1 Potassium Serum ATHE NA ([facility]) sodium level 141 mEq/L 136-145 Sodium Level [facility] ([facility]) chloride level 112 mEq/L 98-107 Above high normal Chloride Level [facility] ([facility]) carbon dioxide level 17 mEq/L 21-32 Below low normal Carbon Di oxide Level [facility] ([facility]) anion gap 12 mEq/L 8-16 Anion Gap [facility] ([facility]) calcium level 8.8 mg/dL 8.5-10.1 Calcium Level [facility] ( [facility]) ID Date Data Source [id number] 12/11/2020 07:57:00 AM EST [facility] ([facility]) Name Value Range Interpretation Code Description Data Claribel rce(s) Supporting Document(s) phosphorus level 1.6 mg/dL 2.5-4.9 Below low normal Phosphorus Le karma [facility] ([facility]) ID Date Data Source [id number] 12/11/2020 07:57:00 AM EST [facility] ([facility]) Name Value Range Interpretation Code Description Data Claribel rce(s) Supporting Document(s) glucose, fasting 178 mg/dL 70-100 Above high normal Glucose, Fas ting [facility] ([facility]) creatinine for GFR 1.43 mg/dL 0.55-1.30 Above high normal Creatinine for GFR [place] ([facility]) blood urea nitrogen 22 mg/dL 7-18 Above high normal Blood Ure a Nitrogen [facility] ([facility]) glomerular filtration rate >60 Below low normal Mariza merular Filtration Rate [facility] ([facility]) sodium level 141 mEq/L 136-145 Sodium Level [facility] ([facility]) potassium serum 3.7 mEq/L 3.5-5.1 Potassium Serum [facility] NA ([facility]) chloride level 112 mEq/L 98-107 Above high normal Chloride Level [place] ([facility]) carbon dioxide level 17 mEq/L 21-32 Below low normal Carbon Di oxide Level [facility] ([facility]) calcium level 8.8 mg/dL 8.5-10.1 Calcium Level [place] ( [facility]) anion gap 12 mEq/L 8-16 Anion Gap [facility] ([facility]) ID Date Data Source [id number] 12/11/2020 07:57:00 AM EST [facility] ([facility]) Name Value Range Interpretation Code Description Data Claribel rce(s) Supporting Document(s) phosphorus level 1.6 mg/dL 2.5-4.9 Below low normal Phosphorus Le karma [facility] ([facility]) ID Date Data Source [id number] 12/11/2020 07:57:00 AM EST [facility] ([facility]) Name Value Range Interpretation Code Description Data Claribel rce(s) Supporting Document(s) glucose, fasting 178 mg/dL 70-100 Above high normal Glucose, Fas ting [facility] ([facility]) blood urea nitrogen 22 mg/dL 7-18 Above high normal Blood Ure a Nitrogen [facility] ([facility]) creatinine for GFR 1.43 mg/dL 0.55-1.30 Above high normal Creatinine for GFR [facility] ([facility]) glomerular filtration rate >60 Below low normal Mariza merular Filtration Rate [facility] ([facility]) sodium level 141 mEq/L 136-145 Sodium Level [facility] ([facility]) potassium serum 3.7 mEq/L 3.5-5.1 Potassium Serum ATHE NA ([facility]) chloride level 112 mEq/L 98-107 Above high normal Chloride Level [place] ([facility]) carbon dioxide level 17 mEq/L 21-32 Below low normal Carbon Di oxide Level [facility] ([facility]) anion gap 12 mEq/L 8-16 Anion Gap [facility] ([facility]) calcium level 8.8 mg/dL 8.5-10.1 Calcium Level [place] ( [facility]) ID Date Data Source [id number] 12/11/2020 07:57:00 AM EST [facility] ([facility]) Name Value Range Interpretation Code Description Data Claribel rce(s) Supporting Document(s) phosphorus level 1.6 mg/dL 2.5-4.9 Below low normal Phosphorus Le karma [facility] ([facility]) ID Date Data Source [id number] 12/11/2020 07:57:00 AM EST [facility] ([facility]) Name Value Range Interpretation Code Description Data Claribel rce(s) Supporting Document(s) glucose, fasting 178 mg/dL 70-100 Above high normal Glucose, Fas ting [facility] ([facility]) creatinine for GFR 1.43 mg/dL 0.55-1.30 Above high normal Creatinine for GFR [facility] ([facility]) blood urea nitrogen 22 mg/dL 7-18 Above high normal Blood Ure a Nitrogen [facility] ([facility]) glomerular filtration rate >60 Below low normal Mariza merular Filtration Rate [facility] ([facility]) sodium level 141 mEq/L 136-145 Sodium Level [facility] ([facility]) chloride level 112 mEq/L 98-107 Above high normal Chloride Level [facility] ([facility]) potassium serum 3.7 mEq/L 3.5-5.1 Potassium Serum ATHE NA ([facility]) carbon dioxide level 17 mEq/L 21-32 Below low normal Carbon Di oxide Level [facility] ([facility]) anion gap 12 mEq/L 8-16 Anion Gap [facility] ([facility]) calcium level 8.8 mg/dL 8.5-10.1 Calcium Level [place] ( [facility]) ID Date Data Source [id number] 12/11/2020 07:57:00 AM EST [place] ([facility]) Name Value Range Interpretation Code Description Data Claribel rce(s) Supporting Document(s) phosphorus level 1.6 mg/dL 2.5-4.9 Below low normal Phosphorus Le karma [facility] ([facility]) ID Date Data Source [id number] 12/11/2020 07:57:00 AM EST [facility] ([facility]) Name Value Range Interpretation Code Description Data Claribel rce(s) Supporting Document(s) glucose, fasting 178 mg/dL 70-100 Above high normal Glucose, Fas ting [facility] ([facility]) creatinine for GFR 1.43 mg/dL 0.55-1.30 Above high normal Creatinine for GFR [facility] ([facility]) blood urea nitrogen 22 mg/dL 7-18 Above high normal Blood Ure a Nitrogen [facility] ([facility]) sodium level 141 mEq/L 136-145 Sodium Level [facility] ([facility]) glomerular filtration rate >60 Below low normal Mariza merular Filtration Rate [facility] ([facility]) potassium serum 3.7 mEq/L 3.5-5.1 Potassium Serum ATHE NA ([facility]) chloride level 112 mEq/L 98-107 Above high normal Chloride Level [facility] ([facility]) anion gap 12 mEq/L 8-16 Anion Gap [facility] ([facility]) carbon dioxide level 17 mEq/L 21-32 Below low normal Carbon Di oxide Level [facility] ([facility]) calcium level 8.8 mg/dL 8.5-10.1 Calcium Level [facility] ( [facility]) ID Date Data Source [id number] 12/11/2020 07:56:00 AM EST [place] ([facility]) Name Value Range Interpretation Code Description Data Claribel rce(s) Supporting Document(s) venous pH 7.210 units 7.330-7.430 Below low normal Venous pH [facility] ([facility]) venous partial pressure O2 99.3 mmHg 30.0-50.0 Above high nor mal Venous Partial Pressure O2 [facility] ([facility]) venous partial pressure CO2 34.6 mmHg 38.0-50.0 Below low nor mal Venous Partial Pressure CO2 [facility] ([facility]) venous total CO2 14.6 mEq/L 24.0-28.0 Below low normal Venous Total CO2 [facility] ([facility]) venous HCO3 13.5 mEq/L 23.0-27.0 Below low normal Venous HCO3 [facility] ([facility]) venous base excess -2.0-2.0 Below low normal Venous Base Excess [facility] ([facility]) venous standard HCO3 14.2 mEq/L Venous Standard HCO3 [facility] ([facility]) venous O2 saturation 97.8 % 60.0-80.0 Above high normal Venous O 2 Saturation [facility] ([facility]) ID Date Data Source [id number] 12/11/2020 07:56:00 AM EST [facility] ([facility]) Name Value Range Interpretation Code Description Data Claribel rce(s) Supporting Document(s) venous pH 7.210 units 7.330-7.430 Below low normal Venous pH [facility] ([facility]) venous partial pressure CO2 34.6 mmHg 38.0-50.0 Below low nor mal Venous Partial Pressure CO2 [facility] ([facility]) venous partial pressure O2 99.3 mmHg 30.0-50.0 Above high nor mal Venous Partial Pressure O2 [facility] ([facility]) venous total CO2 14.6 mEq/L 24.0-28.0 Below low normal Venous Total CO2 [facility] ([facility]) venous HCO3 13.5 mEq/L 23.0-27.0 Below low normal Venous HCO3 [facility] ([facility]) venous base excess -2.0-2.0 Below low normal Venous Base Excess [facility] ([facility]) venous standard HCO3 14.2 mEq/L Venous Standard HCO3 [facility] ([facility]) venous O2 saturation 97.8 % 60.0-80.0 Above high normal Venous O 2 Saturation [place] ([facility]) ID Date Data Source [id number] 12/11/2020 07:56:00 AM EST [place] ([facility]) Name Value Range Interpretation Code Description Data Claribel rce(s) Supporting Document(s) venous pH 7.210 units 7.330-7.430 Below low normal Venous pH [facility] ([facility]) venous partial pressure CO2 34.6 mmHg 38.0-50.0 Below low nor mal Venous Partial Pressure CO2 [facility] ([facility]) venous partial pressure O2 99.3 mmHg 30.0-50.0 Above high nor mal Venous Partial Pressure O2 [facility] ([facility]) venous total CO2 14.6 mEq/L 24.0-28.0 Below low normal Venous Total CO2 [facility] ([facility]) venous HCO3 13.5 mEq/L 23.0-27.0 Below low normal Venous HCO3 [facility] ([facility]) venous standard HCO3 14.2 mEq/L Venous Standard HCO3 [facility] ([facility]) venous base excess -2.0-2.0 Below low normal Venous Base Excess [place] ([facility]) venous O2 saturation 97.8 % 60.0-80.0 Above high normal Venous O 2 Saturation [facility] ([facility]) ID Date Data Source [id number] 12/11/2020 07:56:00 AM [place] ([facility]) Name Value Range Interpretation Code Description Data Claribel rce(s) Supporting Document(s) venous partial pressure CO2 34.6 mmHg 38.0-50.0 Below low nor mal Venous Partial Pressure CO2 [facility] ([facility]) venous pH 7.210 units 7.330-7.430 Below low normal Venous pH [facility] ([facility]) venous total CO2 14.6 mEq/L 24.0-28.0 Below low normal Venous Total CO2 [facility] ([facility]) venous partial pressure O2 99.3 mmHg 30.0-50.0 Above high nor mal Venous Partial Pressure O2 [facility] ([facility]) venous HCO3 13.5 mEq/L 23.0-27.0 Below low normal Venous HCO3 [facility] ([facility]) venous base excess -2.0-2.0 Below low normal Venous Base Excess [facility] ([facility]) venous standard HCO3 14.2 mEq/L Venous Standard HCO3 [facility] ([facility]) venous O2 saturation 97.8 % 60.0-80.0 Above high normal Venous O 2 Saturation [place] ([facility]) ID Date Data Source [id number] 12/11/2020 07:56:00 AM EST [facility] ([facility]) Name Value Range Interpretation Code Description Data Claribel rce(s) Supporting Document(s) venous pH 7.210 units 7.330-7.430 Below low normal Venous pH [facility] ([facility]) venous partial pressure O2 99.3 mmHg 30.0-50.0 Above high nor mal Venous Partial Pressure O2 [facility] ([facility]) venous partial pressure CO2 34.6 mmHg 38.0-50.0 Below low nor mal Venous Partial Pressure CO2 [facility] ([facility]) venous total CO2 14.6 mEq/L 24.0-28.0 Below low normal Venous Total CO2 [facility] ([facility]) venous base excess -2.0-2.0 Below low normal Venous Base Excess [facility] ([facility]) venous HCO3 13.5 mEq/L 23.0-27.0 Below low normal Venous HCO3 [facility] ([facility]) venous standard HCO3 14.2 mEq/L Venous Standard HCO3 [facility] ([facility]) venous O2 saturation 97.8 % 60.0-80.0 Above high normal Venous O 2 Saturation [facility] ([facility]) ID Date Data Source [id number] 12/11/2020 07:56:00 AM EST [place] ([facility]) Name Value Range Interpretation Code Description Data Claribel rce(s) Supporting Document(s) venous pH 7.210 units 7.330-7.430 Below low normal Venous pH [facility] ([facility]) venous partial pressure O2 99.3 mmHg 30.0-50.0 Above high nor mal Venous Partial Pressure O2 [facility] ([facility]) venous partial pressure CO2 34.6 mmHg 38.0-50.0 Below low nor mal Venous Partial Pressure CO2 [facility] ([facility]) venous total CO2 14.6 mEq/L 24.0-28.0 Below low normal Venous Total CO2 [facility] ([facility]) venous base excess -2.0-2.0 Below low normal Venous Base Excess [facility] ([facility]) venous HCO3 13.5 mEq/L 23.0-27.0 Below low normal Venous HCO3 [facility] ([facility]) venous O2 saturation 97.8 % 60.0-80.0 Above high normal Venous O 2 Saturation [facility] ([facility]) venous standard HCO3 14.2 mEq/L Venous Standard HCO3 [facility] ([facility]) ID Date Data Source [id number] 12/11/2020 07:13:00 AM EST [facility] ([facility]) Name Value Range Interpretation Code Description Data Claribel rce(s) Supporting Document(s) bedside glucose 168 mg/dL 70-105 Above high normal Bedside Gluco se [facility] ([facility]) ID Date Data Source [id number] 12/11/2020 07:13:00 AM EST [facility] ([facility]) Name Value Range Interpretation Code Description Data Claribel rce(s) Supporting Document(s) bedside glucose 168 mg/dL 70-105 Above high normal Bedside Gluco se [facility] ([facility]) ID Date Data Source [id number] 12/11/2020 07:13:00 AM EST [facility] ([facility]) Name Value Range Interpretation Code Description Data Claribel rce(s) Supporting Document(s) bedside glucose 168 mg/dL 70-105 Above high normal Bedside Gluco se [facility] ([facility]) ID Date Data Source [id number] 12/11/2020 07:13:00 AM EST [facility] ([facility]) Name Value Range Interpretation Code Description Data Claribel rce(s) Supporting Document(s) bedside glucose 168 mg/dL 70-105 Above high normal Bedside Gluco se [facility] ([facility]) ID Date Data Source [id number] 12/11/2020 07:13:00 AM EST [facility] ([facility]) Name Value Range Interpretation Code Description Data Claribel rce(s) Supporting Document(s) bedside glucose 168 mg/dL 70-105 Above high normal Bedside Gluco se [facility] ([facility]) ID Date Data Source [id number] 12/11/2020 07:13:00 AM EST [facility] ([facility]) Name Value Range Interpretation Code Description Data Claribel rce(s) Supporting Document(s) bedside glucose 168 mg/dL 70-105 Above high normal Bedside Gluco se [facility]) ID Date Data Source [id number] 12/11/2020 06:29:00 AM EST [facility]) Name Value Range Interpretation Code Description Data Claribel rce(s) Supporting Document(s) bedside glucose 172 mg/dL 70-105 Above high normal Bedside Gluco se [facility] ([facility]) ID Date Data Source [id number] 12/11/2020 06:29:00 AM EST [facility] ([facility]) Name Value Range Interpretation Code Description Data Claribel rce(s) Supporting Document(s) bedside glucose 172 mg/dL 70-105 Above high normal Bedside Gluco se [facility] ([facility]) ID Date Data Source [id number] 12/11/2020 06:29:00 AM EST [facility] ([facility]) Name Value Range Interpretation Code Description Data Claribel rce(s) Supporting Document(s) bedside glucose 172 mg/dL 70-105 Above high normal Bedside Gluco se [facility]) ID Date Data Source [id number] 12/11/2020 06:29:00 AM EST [facility]) Name Value Range Interpretation Code Description Data Claribel rce(s) Supporting Document(s) bedside glucose 172 mg/dL 70-105 Above high normal Bedside Gluco se [facility]) ID Date Data Source [id number] 12/11/2020 06:29:00 AM EST [facility] ([facility]) Name Value Range Interpretation Code Description Data Claribel rce(s) Supporting Document(s) bedside glucose 172 mg/dL 70-105 Above high normal [facility] Data Source [id number] 12/11/2020 06:29:00 AM EST [facility]) Name Value Range Interpretation Code Description Data Claribel rce(s) Supporting Document(s) bedside glucose 172 mg/dL 70-105 Above high normal Bedside Gluco se [facility] ([facility]) ID Date Data Source [id number] 12/11/2020 06:26:00 AM EST [facility] ([facility]) Name Value Range Interpretation Code Description Data Claribel rce(s) Supporting Document(s) bedside glucose 116 mg/dL 70-105 Above high normal Bedside Gluco se [facility] ([facility]) ID Date Data Source [id number] 12/11/2020 06:26:00 AM EST [facility] ([facility]) Name Value Range Interpretation Code Description Data Claribel rce(s) Supporting Document(s) bedside glucose 116 mg/dL 70-105 Above high normal Bedside Gluco se [facility] ([facility]) ID Date Data Source [id number] 12/11/2020 06:26:00 AM EST [facility] ([facility]) Name Value Range Interpretation Code Description Data Claribel rce(s) Supporting Document(s) bedside glucose 116 mg/dL 70-105 Above high normal Bedside Gluco se [facility] ([facility]) ID Date Data Source [id number] 12/11/2020 06:26:00 AM EST [facility] ([facility]) Name Value Range Interpretation Code Description Data Claribel rce(s) Supporting Document(s) bedside glucose 116 mg/dL 70-105 Above high normal Bedside Gluco se [facility] ([facility]) ID Date Data Source [id number] 12/11/2020 06:26:00 AM EST [facility] ([facility]) Name Value Range Interpretation Code Description Data Claribel rce(s) Supporting Document(s) bedside glucose 116 mg/dL 70-105 Above high normal Bedside Gluco se [facility] ([facility]) ID Date Data Source [id number] 12/11/2020 06:26:00 AM EST [facility] ([facility]) Name Value Range Interpretation Code Description Data Claribel rce(s) Supporting Document(s) bedside glucose 116 mg/dL 70-105 Above high normal Bedside Gluco se [facility] ([facility]) ID Date Data Source [id number] 12/11/2020 06:00:00 AM EST [facility] ([facility]) Name Value Range Interpretation Code Description Data Claribel rce(s) Supporting Document(s) white blood count 7.7 10 4.0-10.0 White Blood Count [facility] ([facility]) red blood count 3.91 10 4.00-5.40 Below low normal Red Blood Coun t [place] ([facility]) hemoglobin 11.4 g/dL 12.0-15.5 Below low normal Hemoglobin [place] ( [facility]) hematocrit 34.1 % 36.0-47.0 Below low normal Hematocrit [place] ( [facility]) mean corpuscular volume 87.2 fL 80.0-96.0 Mean Corpusc ular Volume [facility] ([facility]) mean corpuscular HGB conc 33.4 g/dL 32.0-36.5 Mean Corpu scular HGB Conc [place] ([facility]) mean corpuscular hemoglobin 29.2 pg 27.0-33.0 Mean Cor puscular Hemoglobin [facility] ([facility]) red cell distribution width 13.3 % 11.5-14.5 Red Cell Distribution Width [facility] ([facility]) nucleated red blood cell % 0.0 % 0-0 Nucleated Red Blood Cell % [facility] ([facility]) platelet count, automated 229 10 150-450 Platelet C ount, Automated [facility] ([facility]) ID Date Data Source [id number] 12/11/2020 06:00:00 AM EST [facility] ([facility]) Name Value Range Interpretation Code Description Data Claribel rce(s) Supporting Document(s) white blood count 7.7 10 4.0-10.0 White Blood Count [facility] ([facility]) hemoglobin 11.4 g/dL 12.0-15.5 Below low normal Hemoglobin [facility] ( [facility]) red blood count 3.91 10 4.00-5.40 Below low normal Red Blood Coun t [facility] ([facility]) hematocrit 34.1 % 36.0-47.0 Below low normal Hematocrit [facility] ( [facility]) mean corpuscular volume 87.2 fL 80.0-96.0 Mean Corpusc ular Volume [facility] ([facility]) mean corpuscular hemoglobin 29.2 pg 27.0-33.0 Mean Cor puscular Hemoglobin [facility] ([facility]) mean corpuscular HGB conc 33.4 g/dL 32.0-36.5 Mean Corpu scular HGB Conc [place] ([facility]) red cell distribution width 13.3 % 11.5-14.5 Red Cell Distribution Width [place] ([facility]) platelet count, automated 229 10 150-450 Platelet C ount, Automated [facility] ([facility]) nucleated red blood cell % 0.0 % 0-0 Nucleated Red Blood Cell % [place] ([facility]) ID Date Data Source [id number] 12/11/2020 06:00:00 AM EST [place] ([facility]) Name Value Range Interpretation Code Description Data Claribel rce(s) Supporting Document(s) red blood count 3.91 10 4.00-5.40 Below low normal Red Blood Coun t [facility] ([facility]) white blood count 7.7 10 4.0-10.0 White Blood Count [facility] ([facility]) hemoglobin 11.4 g/dL 12.0-15.5 Below low normal Hemoglobin [facility] ( [facility]) hematocrit 34.1 % 36.0-47.0 Below low normal Hematocrit [facility] ( [facility]) mean corpuscular volume 87.2 fL 80.0-96.0 Mean Corpusc ular Volume [facility] ([facility]) mean corpuscular HGB conc 33.4 g/dL 32.0-36.5 Mean Corpu scular HGB Conc [facility] ([facility]) mean corpuscular hemoglobin 29.2 pg 27.0-33.0 Mean Cor puscular Hemoglobin [facility] ([facility]) platelet count, automated 229 10 150-450 Platelet C ount, Automated [facility] ([facility]) red cell distribution width 13.3 % 11.5-14.5 Red Cell Distribution Width [facility] ([facility]) nucleated red blood cell % 0.0 % 0-0 Nucleated Red Blood Cell % [facility] ([facility]) ID Date Data Source [id number] 12/11/2020 06:00:00 AM EST [place] ([facility]) Name Value Range Interpretation Code Description Data Claribel rce(s) Supporting Document(s) white blood count 7.7 10 4.0-10.0 White Blood Count [place] ([facility]) red blood count 3.91 10 4.00-5.40 Below low normal Red Blood Coun t [place] ([facility]) hemoglobin 11.4 g/dL 12.0-15.5 Below low normal Hemoglobin [place] ( [facility]) hematocrit 34.1 % 36.0-47.0 Below low normal Hematocrit [place] ( [facility]) mean corpuscular volume 87.2 fL 80.0-96.0 Mean Corpusc ular Volume [facility] ([facility]) mean corpuscular hemoglobin 29.2 pg 27.0-33.0 Mean Cor puscular Hemoglobin [facility] ([facility]) mean corpuscular HGB conc 33.4 g/dL 32.0-36.5 Mean Corpu scular HGB Conc [facility] ([facility]) platelet count, automated 229 10 150-450 Platelet C ount, Automated [facility] ([facility]) red cell distribution width 13.3 % 11.5-14.5 Red Cell Distribution Width [facility] ([facility]) nucleated red blood cell % 0.0 % 0-0 Nucleated Red Blood Cell % [facility] ([facility]) ID Date Data Source [id number] 12/11/2020 06:00:00 AM EST [facility] ([facility]) Name Value Range Interpretation Code Description Data Claribel rce(s) Supporting Document(s) white blood count 7.7 10 4.0-10.0 White Blood Count [facility] ([facility]) red blood count 3.91 10 4.00-5.40 Below low normal Red Blood Coun t [facility] ([facility]) hemoglobin 11.4 g/dL 12.0-15.5 Below low normal Hemoglobin [facility] ( [facility]) hematocrit 34.1 % 36.0-47.0 Below low normal Hematocrit [place] ( [facility]) mean corpuscular volume 87.2 fL 80.0-96.0 Mean Corpusc ular Volume [place] ([facility]) mean corpuscular hemoglobin 29.2 pg 27.0-33.0 Mean Cor puscular Hemoglobin [place] ([facility]) mean corpuscular HGB conc 33.4 g/dL 32.0-36.5 Mean Corpu scular HGB Conc [place] ([facility]) red cell distribution width 13.3 % 11.5-14.5 Red Cell Distribution Width [place] ([facility]) platelet count, automated 229 10 150-450 Platelet C ount, Automated [facility] ([facility]) nucleated red blood cell % 0.0 % 0-0 Nucleated Red Blood Cell % [place] ([facility]) ID Date Data Source [id number] 12/11/2020 06:00:00 AM EST [facility] ([facility]) Name Value Range Interpretation Code Description Data Claribel rce(s) Supporting Document(s) white blood count 7.7 10 4.0-10.0 White Blood Count [facility] ([facility]) red blood count 3.91 10 4.00-5.40 Below low normal Red Blood Coun t [facility] ([facility]) hemoglobin 11.4 g/dL 12.0-15.5 Below low normal Hemoglobin [facility] ( [facility]) mean corpuscular volume 87.2 fL 80.0-96.0 Mean Corpusc ular Volume [facility] ([facility]) hematocrit 34.1 % 36.0-47.0 Below low normal Hematocrit [facility] ( [facility]) mean corpuscular hemoglobin 29.2 pg 27.0-33.0 Mean Cor puscular Hemoglobin [place] ([facility]) mean corpuscular HGB conc 33.4 g/dL 32.0-36.5 Mean Corpu scular HGB Conc [facility] ([facility]) red cell distribution width 13.3 % 11.5-14.5 Red Cell Distribution Width [facility] ([facility]) platelet count, automated 229 10 150-450 Platelet C ount, Automated [facility] ([facility]) nucleated red blood cell % 0.0 % 0-0 Nucleated Red Blood Cell % [place] ([facility]) ID Date Data Source [id number] 12/11/2020 05:26:00 AM EST [place] ([facility]) Name Value Range Interpretation Code Description Data Claribel rce(s) Supporting Document(s) bedside glucose 208 mg/dL 70-105 Above high normal Bedside Gluco se [facility]) ID Date Data Source [id number] 12/11/2020 05:26:00 AM EST [facility] ([facility]) Name Value Range Interpretation Code Description Data Claribel rce(s) Supporting Document(s) bedside glucose 208 mg/dL 70-105 Above high normal Bedside Gluco se [place] ([facility]) ID Date Data Source [id number] 12/11[facility]2020 [facility] Name Value Range Interpretation Code Description Data Claribel rce(s) Supporting Document(s) bedside glucose 208 mg/dL 70-105 Above high normal Bedside Gluco se [place] ([facility]) ID Date Data Source [id number] 12/11/2020 05:26:00 AM EST [facility] ([facility]) Name Value Range Interpretation Code Description Data Claribel rce(s) Supporting Document(s) bedside glucose 208 mg/dL 70-105 Above high normal Bedside Gluco se [facility] ([facility]) ID Date Data Source [id number] 12/11/2020 05:26:00 AM EST [facility] ([facility]) Name Value Range Interpretation Code Description Data Claribel rce(s) Supporting Document(s) bedside glucose 208 mg/dL 70-105 Above high normal Bedside Gluco se [facility] ([facility]) ID Date Data Source [id number] 12/11/2020 05:26:00 AM EST [facility]) Name Value Range Interpretation Code Description Data Claribel rce(s) Supporting Document(s) bedside glucose 208 mg/dL 70-105 Above high normal Bedside Gluco se [facility] ([facility]) ID Date Data Source [id number] 12/11/2020 03:55:00 AM EST [facility]) Name Value Range Interpretation Code Description Data Claribel rce(s) Supporting Document(s) osmolality serum 310 mOsm/kg 275-295 Above high normal Osmolality Serum [place] ([facility]) ID Date Data Source [id number] 12/11/2020 03:55:00 AM EST [facility] ([facility]) Name Value Range Interpretation Code Description Data Claribel rce(s) Supporting Document(s) phosphorus level 1.5 mg/dL 2.5-4.9 Below low normal Phosphorus Le karma [facility] ([facility]) ID Date Data Source [id number] 12/11/2020 03:55:00 AM EST [facility]) Name Value Range Interpretation Code Description Data Claribel rce(s) Supporting Document(s) glucose, fasting 224 mg/dL 70-100 Above high normal Glucose, Fas ting [facility] ([facility]) blood urea nitrogen 23 mg/dL 7-18 Above high normal Blood Ure a Nitrogen [facility] ([facility]) creatinine for GFR 1.55 mg/dL 0.55-1.30 Above high normal Creatinine for GFR [facility] ([facility]) glomerular filtration rate >60 Below low normal Mariza merular Filtration Rate [facility] ([facility]) sodium level 141 mEq/L 136-145 Sodium Level [facility] ([facility]) potassium serum 4.0 mEq/L 3.5-5.1 Potassium Serum [facility] ([facility]) chloride level 112 mEq/L 98-107 Above high normal Chloride Level [place] ([facility]) carbon dioxide level 13 mEq/L 21-32 Below low normal Carbon Di oxide Level [place] ([facility]) anion gap 16 mEq/L 8-16 Anion Gap [facility] ([facility]) calcium level 8.8 mg/dL 8.5-10.1 Calcium Level [facility] ( [facility]) ID Date Data Source [id number] 12/11/2020 03:55:00 AM EST [place] ([facility]) Name Value Range Interpretation Code Description Data Claribel rce(s) Supporting Document(s) venous pH 7.221 units 7.330-7.430 Below low normal Venous pH [place] ([facility]) venous partial pressure CO2 30.1 mmHg 38.0-50.0 Below low nor mal Venous Partial Pressure CO2 [facility] ([facility]) venous partial pressure O2 74.2 mmHg 30.0-50.0 Above high nor mal Venous Partial Pressure O2 [facility] ([facility]) venous total CO2 13.0 mEq/L 24.0-28.0 Below low normal Venous Total CO2 [facility] ([facility]) venous HCO3 12.1 mEq/L 23.0-27.0 Below low normal Venous HCO3 [facility] ([facility]) venous base excess -2.0-2.0 Below low normal Venous Base Excess [facility] ([facility]) venous standard HCO3 13.5 mEq/L Venous Standard HCO3 [facility] ([facility]) venous O2 saturation 94.9 % 60.0-80.0 Above high normal Venous O 2 Saturation [facility] ([facility]) ID Date Data Source [id number] 12/11/2020 03:55:00 AM EST [facility] ([facility]) Name Value Range Interpretation Code Description Data Claribel rce(s) Supporting Document(s) osmolality serum 310 mOsm/kg 275-295 Above high normal Osmolality Serum [facility] ([facility]) ID Date Data Source [id number] 12/11/2020 03:55:00 AM EST [facility] ([facility]) Name Value Range Interpretation Code Description Data Claribel rce(s) Supporting Document(s) phosphorus level 1.5 mg/dL 2.5-4.9 Below low normal Phosphorus Le karma [facility] ([facility]) ID Date Data Source [id number] 12/11/2020 03:55:00 AM EST [facility] ([facility]) Name Value Range Interpretation Code Description Data Claribel rce(s) Supporting Document(s) blood urea nitrogen 23 mg/dL 7-18 Above high normal Blood Ure a Nitrogen [facility] ([facility]) glucose, fasting 224 mg/dL 70-100 Above high normal Glucose, Fas ting [facility] ([facility]) creatinine for GFR 1.55 mg/dL 0.55-1.30 Above high normal Creatinine for GFR [facility] ([facility]) sodium level 141 mEq/L 136-145 Sodium Level [facility] ([facility]) glomerular filtration rate >60 Below low normal Mariza merular Filtration Rate [facility] ([facility]) chloride level 112 mEq/L 98-107 Above high normal Chloride Level [facility] ([facility]) potassium serum 4.0 mEq/L 3.5-5.1 Potassium Serum [facility] ([facility]) carbon dioxide level 13 mEq/L 21-32 Below low normal Carbon Di oxide Level [place] ([facility]) calcium level 8.8 mg/dL 8.5-10.1 Calcium Level [facility] ( [facility]) anion gap 16 mEq/L 8-16 Anion Gap [facility] ([facility]) ID Date Data Source [id number] 12/11/2020 03:55:00 AM EST [facility] ([facility]) Name Value Range Interpretation Code Description Data Claribel rce(s) Supporting Document(s) venous pH 7.221 units 7.330-7.430 Below low normal Venous pH [facility] ([facility]) venous partial pressure CO2 30.1 mmHg 38.0-50.0 Below low nor mal Venous Partial Pressure CO2 [facility] ([facility]) venous total CO2 13.0 mEq/L 24.0-28.0 Below low normal Venous Total CO2 [place] ([facility]) venous partial pressure O2 74.2 mmHg 30.0-50.0 Above high nor mal Venous Partial Pressure O2 [facility] ([facility]) venous HCO3 12.1 mEq/L 23.0-27.0 Below low normal Venous HCO3 [facility] ([facility]) venous standard HCO3 13.5 mEq/L Venous Standard HCO3 [facility] ([facility]) venous base excess -2.0-2.0 Below low normal Venous Base Excess [place] ([facility]) venous O2 saturation 94.9 % 60.0-80.0 Above high normal Venous O 2 Saturation [place] ([facility]) ID Date Data Source [id number] 12/11/2020 03:55:00 AM EST [facility] ([facility]) Name Value Range Interpretation Code Description Data Claribel rce(s) Supporting Document(s) osmolality serum 310 mOsm/kg 275-295 Above high normal Osmolality Serum [place] ([facility]) ID Date Data Source [id number] 12/11/2020 03:55:00 AM EST [facility] ([facility]) Name Value Range Interpretation Code Description Data Claribel rce(s) Supporting Document(s) phosphorus level 1.5 mg/dL 2.5-4.9 Below low normal Phosphorus Le karma [facility] ([facility]) ID Date Data Source [id number] 12/11/2020 03:55:00 AM [place] ([facility]) Name Value Range Interpretation Code Description Data Claribel rce(s) Supporting Document(s) glucose, fasting 224 mg/dL 70-100 Above high normal Glucose, Fas ting [facility] ([facility]) blood urea nitrogen 23 mg/dL 7-18 Above high normal Blood Ure a Nitrogen [facility] ([facility]) creatinine for GFR 1.55 mg/dL 0.55-1.30 Above high normal Creatinine for GFR [facility] ([facility]) glomerular filtration rate >60 Below low normal Mariza merular Filtration Rate [place] ([facility]) potassium serum 4.0 mEq/L 3.5-5.1 Potassium Serum [facility] ([facility]) sodium level 141 mEq/L 136-145 Sodium Level [facility] ([facility]) chloride level 112 mEq/L 98-107 Above high normal Chloride Level [facility] ([facility]) anion gap 16 mEq/L 8-16 Anion Gap [facility] ([facility]) carbon dioxide level 13 mEq/L 21-32 Below low normal Carbon Di oxide Level [place] ([facility]) calcium level 8.8 mg/dL 8.5-10.1 Calcium Level [place] ( [facility]) ID Date Data Source [id number] 12/11/2020 03:55:00 AM EST [facility] ([facility]) Name Value Range Interpretation Code Description Data Claribel rce(s) Supporting Document(s) venous pH 7.221 units 7.330-7.430 Below low normal Venous pH [facility] ([facility]) venous partial pressure O2 74.2 mmHg 30.0-50.0 Above high nor mal Venous Partial Pressure O2 [facility] ([facility]) venous partial pressure CO2 30.1 mmHg 38.0-50.0 Below low nor mal Venous Partial Pressure CO2 [facility] ([facility]) venous HCO3 12.1 mEq/L 23.0-27.0 Below low normal Venous HCO3 [facility] ([facility]) venous total CO2 13.0 mEq/L 24.0-28.0 Below low normal Venous Total CO2 [facility] ([facility]) venous base excess -2.0-2.0 Below low normal Venous Base Excess [facility] ([facility]) venous standard HCO3 13.5 mEq/L Venous Standard HCO3 [facility] ([facility]) venous O2 saturation 94.9 % 60.0-80.0 Above high normal Venous O 2 Saturation [place] ([facility]) ID Date Data Source [id number] 12/11/2020 03:55:00 AM EST [facility] ([facility]) Name Value Range Interpretation Code Description Data Claribel rce(s) Supporting Document(s) osmolality serum 310 mOsm/kg 275-295 Above high normal Osmolality Serum [place] ([facility]) ID Date Data Source [id number] 12/11/2020 03:55:00 AM EST [facility] ([facility]) Name Value Range Interpretation Code Description Data Claribel rce(s) Supporting Document(s) phosphorus level 1.5 mg/dL 2.5-4.9 Below low normal Phosphorus Le karma [facility] ([facility]) ID Date Data Source [id number] 12/11/2020 03:55:00 AM EST [facility] ([facility]) Name Value Range Interpretation Code Description Data Claribel rce(s) Supporting Document(s) glucose, fasting 224 mg/dL 70-100 Above high normal Glucose, Fas ting [facility] ([facility]) blood urea nitrogen 23 mg/dL 7-18 Above high normal Blood Ure a Nitrogen [facility] ([facility]) glomerular filtration rate >60 Below low normal Mariza merular Filtration Rate [facility] ([facility]) creatinine for GFR 1.55 mg/dL 0.55-1.30 Above high normal Creatinine for GFR [facility] ([facility]) sodium level 141 mEq/L 136-145 Sodium Level [facility] ([facility]) potassium serum 4.0 mEq/L 3.5-5.1 Potassium Serum [facility] ([facility]) chloride level 112 mEq/L 98-107 Above high normal Chloride Level [facility] ([facility]) carbon dioxide level 13 mEq/L 21-32 Below low normal Carbon Di oxide Level [facility] ([facility]) anion gap 16 mEq/L 8-16 Anion Gap [facility] ([facility]) calcium level 8.8 mg/dL 8.5-10.1 Calcium Level [facility] ( [facility]) ID Date Data Source [id number] 12/11/2020 03:55:00 AM EST [place] ([facility]) Name Value Range Interpretation Code Description Data Claribel rce(s) Supporting Document(s) venous pH 7.221 units 7.330-7.430 Below low normal Venous pH [facility] ([facility]) venous partial pressure CO2 30.1 mmHg 38.0-50.0 Below low nor mal Venous Partial Pressure CO2 [facility] ([facility]) venous partial pressure O2 74.2 mmHg 30.0-50.0 Above high nor mal Venous Partial Pressure O2 [facility] ([facility]) venous total CO2 13.0 mEq/L 24.0-28.0 Below low normal Venous Total CO2 [facility] ([facility]) venous HCO3 12.1 mEq/L 23.0-27.0 Below low normal Venous HCO3 [facility] ([facility]) venous base excess -2.0-2.0 Below low normal Venous Base Excess [facility] ([facility]) venous standard HCO3 13.5 mEq/L Venous Standard HCO3 [facility] ([facility]) venous O2 saturation 94.9 % 60.0-80.0 Above high normal [facility] Date Data Source [id number] 12/11/2020 03:55:00 AM EST [place] ([facility]) Name Value Range Interpretation Code Description Data Claribel rce(s) Supporting Document(s) osmolality serum 310 mOsm/kg 275-295 Above high normal Osmolality Serum [facility] ([facility]) ID Date Data Source [id number] 12/11/2020 03:55:00 AM EST [facility] ([facility]) Name Value Range Interpretation Code Description Data Claribel rce(s) Supporting Document(s) phosphorus level 1.5 mg/dL 2.5-4.9 Below low normal Phosphorus Le karma [facility] ([facility]) ID Date Data Source [id number] 12/11/2020 03:55:00 AM EST [facility] ([facility]) Name Value Range Interpretation Code Description Data Claribel rce(s) Supporting Document(s) glucose, fasting 224 mg/dL 70-100 Above high normal Glucose, Fas ting [facility] ([facility]) blood urea nitrogen 23 mg/dL 7-18 Above high normal Blood Ure a Nitrogen [facility] ([facility]) creatinine for GFR 1.55 mg/dL 0.55-1.30 Above high normal Creatinine for GFR [facility] ([facility]) glomerular filtration rate >60 Below low normal Mariza merular Filtration Rate [facility] ([facility]) sodium level 141 mEq/L 136-145 Sodium Level [facility] ([facility]) potassium serum 4.0 mEq/L 3.5-5.1 Potassium Serum [facility] ([facility]) carbon dioxide level 13 mEq/L 21-32 Below low normal Carbon Di oxide Level [facility] ([facility]) chloride level 112 mEq/L 98-107 Above high normal Chloride Level [facility] ([facility]) anion gap 16 mEq/L 8-16 Anion Gap [facility] ([facility]) calcium level 8.8 mg/dL 8.5-10.1 Calcium Level [facility] ( [facility]) ID Date Data Source [id number] 12/11/2020 03:55:00 AM EST [facility] ([facility]) Name Value Range Interpretation Code Description Data Claribel rce(s) Supporting Document(s) venous pH 7.221 units 7.330-7.430 Below low normal Venous pH [facility] ([facility]) venous partial pressure CO2 30.1 mmHg 38.0-50.0 Below low nor mal Venous Partial Pressure CO2 [facility] ([facility]) venous total CO2 13.0 mEq/L 24.0-28.0 Below low normal Venous Total CO2 [facility] ([facility]) venous partial pressure O2 74.2 mmHg 30.0-50.0 Above high nor mal Venous Partial Pressure O2 [facility] ([facility]) venous HCO3 12.1 mEq/L 23.0-27.0 Below low normal Venous HCO3 [facility] ([facility]) venous base excess -2.0-2.0 Below low normal Venous Base Excess [place] ([facility]) venous standard HCO3 13.5 mEq/L Venous Standard HCO3 [place] ([facility]) venous O2 saturation 94.9 % 60.0-80.0 Above high normal Venous O 2 Saturation [place] ([facility]) ID Date Data Source [id number] 12/11/2020 03:55:00 AM EST [place] ([facility]) Name Value Range Interpretation Code Description Data Claribel rce(s) Supporting Document(s) osmolality serum 310 mOsm/kg 275-295 Above high normal Osmolality Serum [facility]) ID Date Data Source [id number] 12/11/2020 03:55:00 AM EST [facility]) Name Value Range Interpretation Code Description Data Claribel rce(s) Supporting Document(s) phosphorus level 1.5 mg/dL 2.5-4.9 Below low normal Phosphorus Le karma [facility] ([facility]) ID Date Data Source [id number] 12/11/2020 03:55:00 AM EST [facility] ([facility]) Name Value Range Interpretation Code Description Data Claribel rce(s) Supporting Document(s) glucose, fasting 224 mg/dL 70-100 Above high normal Glucose, Fas ting [facility] ([facility]) blood urea nitrogen 23 mg/dL 7-18 Above high normal Blood Ure a Nitrogen [facility] ([facility]) creatinine for GFR 1.55 mg/dL 0.55-1.30 Above high normal Creatinine for GFR [facility] ([facility]) sodium level 141 mEq/L 136-145 Sodium Level [facility] ([facility]) glomerular filtration rate >60 Below low normal Mariza merular Filtration Rate [facility] ([facility]) potassium serum 4.0 mEq/L 3.5-5.1 Potassium Serum [facility] NA ([facility]) carbon dioxide level 13 mEq/L 21-32 Below low normal Carbon Di oxide Level [facility] ([facility]) chloride level 112 mEq/L 98-107 Above high normal Chloride Level [facility] ([facility]) anion gap 16 mEq/L 8-16 Anion Gap [facility] ([facility]) calcium level 8.8 mg/dL 8.5-10.1 Calcium Level [place] ( [facility]) ID Date Data Source [id number] 12/11/2020 03:55:00 AM EST [place] ([facility]) Name Value Range Interpretation Code Description Data Claribel rce(s) Supporting Document(s) venous pH 7.221 units 7.330-7.430 Below low normal Venous pH [place] ([facility]) venous partial pressure CO2 30.1 mmHg 38.0-50.0 Below low nor mal Venous Partial Pressure CO2 [place] ([facility]) venous partial pressure O2 74.2 mmHg 30.0-50.0 Above high nor mal Venous Partial Pressure O2 [facility] ([facility]) venous total CO2 13.0 mEq/L 24.0-28.0 Below low normal Venous Total CO2 [facility] ([facility]) venous HCO3 12.1 mEq/L 23.0-27.0 Below low normal Venous HCO3 [facility] ([facility]) venous base excess -2.0-2.0 Below low normal Venous Base Excess [facility] ([facility]) venous standard HCO3 13.5 mEq/L Venous Standard HCO3 [facility] ([facility]) venous O2 saturation 94.9 % 60.0-80.0 Above high normal Venous O 2 Saturation [place] ([facility]) ID Date Data Source [id number] 12/11/2020 03:50:00 AM EST [facility] ([facility]) Name Value Range Interpretation Code Description Data Claribel rce(s) Supporting Document(s) bedside glucose 218 mg/dL 70-105 Above high normal Bedside Gluco se [facility] ([facility]) ID Date Data Source [id number] 12/11/2020 03:50:00 AM EST [place] ([facility]) Name Value Range Interpretation Code Description Data Claribel rce(s) Supporting Document(s) bedside glucose 218 mg/dL 70-105 Above high normal Bedside Gluco se [facility]) ID Date Data Source [id number] 12/11/2020 03:50:00 AM EST [facility]) Name Value Range Interpretation Code Description Data Claribel rce(s) Supporting Document(s) bedside glucose 218 mg/dL 70-105 Above high normal Bedside Gluco se [facility]) ID Date Data Source [id number] 12/11[facility]2020 03:50:[facility] Name Value Range Interpretation Code Description Data Claribel rce(s) Supporting Document(s) bedside glucose 218 mg/dL 70-105 Above high normal Bedside Gluco se [facility] ([facility]) ID Date Data Source [id number] 12/11/2020 03:50:00 [facility] Name Value Range Interpretation Code Description Data Claribel rce(s) Supporting Document(s) bedside glucose 218 mg/dL 70-105 Above high normal [facility] ID Date Data Source [id number] 12/11/2020 03:50:00 AM EST [facility] ([facility]) Name Value Range Interpretation Code Description Data Claribel rce(s) Supporting Document(s) bedside glucose 218 mg/dL 70-105 Above high normal Bedside Gluco se [facility] ([facility]) ID Date Data Source [id number] 12/11/2020 03:02:00 AM EST [facility] ([facility]) Name Value Range Interpretation Code Description Data Claribel rce(s) Supporting Document(s) bedside glucose 230 mg/dL 70-105 Above high normal Bedside Gluco se [facility] ([facility]) ID Date Data Source [id number] 12/11/2020 03:02:00 AM EST [facility] ([facility]) Name Value Range Interpretation Code Description Data Claribel rce(s) Supporting Document(s) bedside glucose 230 mg/dL 70-105 Above high normal Bedside Gluco se [facility] ([facility]) ID Date Data Source [id number] 12/11/2020 03:02:00 AM EST [facility]) Name Value Range Interpretation Code Description Data Claribel rce(s) Supporting Document(s) bedside glucose 230 mg/dL 70-105 Above high normal Bedside Gluco se [facility] ([facility]) ID Date Data Source [id number] 12/11/2020 03:02:00 AM EST [facility] ([facility]) Name Value Range Interpretation Code Description Data Claribel rce(s) Supporting Document(s) bedside glucose 230 mg/dL 70-105 Above high normal [facility] ID Date Data Source [id number] 12/11/2020 03:02:00 AM EST [facility]) Name Value Range Interpretation Code Description Data Claribel rce(s) Supporting Document(s) bedside glucose 230 mg/dL 70-105 Above high normal Bedside Gluco se [facility] ([facility]) ID Date Data Source [id number] 12/11/2020 03:02:00 AM EST [facility] ([facility]) Name Value Range Interpretation Code Description Data Claribel rce(s) Supporting Document(s) bedside glucose 230 mg/dL 70-105 Above high normal Bedside Gluco se [facility] ([facility]) ID Date Data Source [id number] 12/11/2020 02:11:00 AM EST [facility] ([facility]) Name Value Range Interpretation Code Description Data Claribel rce(s) Supporting Document(s) bedside glucose 211 mg/dL 70-105 Above high normal Bedside Gluco se [facility]) ID Date Data Source [id number] 12/11/2020 02:11:00 AM EST [facility]) Name Value Range Interpretation Code Description Data Claribel rce(s) Supporting Document(s) bedside glucose 211 mg/dL 70-105 Above high normal Bedside Gluco se [facility]) ID Date Data Source [id number] 12/11/2020 02:11:00 AM EST [facility] ([facility]) Name Value Range Interpretation Code Description Data Claribel rce(s) Supporting Document(s) bedside glucose 211 mg/dL 70-105 Above high normal Bedside Gluco se [facility] ([facility]) ID Date Data Source [id number] 12/11/2020 02:11:00 AM EST [facility]) Name Value Range Interpretation Code Description Data Claribel rce(s) Supporting Document(s) bedside glucose 211 mg/dL 70-105 Above high normal [facility] ID Date Data Source [id number] 12/11/2020 02:11:00 AM EST [facility] ([facility]) Name Value Range Interpretation Code Description Data Claribel rce(s) Supporting Document(s) bedside glucose 211 mg/dL 70-105 Above high normal Bedside Gluco se [facility] ([facility]) ID Date Data Source [id number] 12/11/2020 02:11:00 AM EST [facility] ([facility]) Name Value Range Interpretation Code Description Data Claribel rce(s) Supporting Document(s) bedside glucose 211 mg/dL 70-105 Above high normal Bedside Gluco se [facility] ([facility]) ID Date Data Source [id number] 12/11/2020 01:06:00 AM EST [facility] ([facility]) Name Value Range Interpretation Code Description Data Claribel rce(s) Supporting Document(s) potassium random urine 55.4 mEq/L Potassium Ran dom Urine [facility] ([facility]) ID Date Data Source [id number] 12/11/2020 01:06:00 AM EST [facility] ([facility]) Name Value Range Interpretation Code Description Data Claribel rce(s) Supporting Document(s) sodium,random urine 35 mEq/L Sodium,random Ur ine [facility] ([facility]) ID Date Data Source [id number] 12/11/2020 01:06:00 AM EST [facility] ([facility]) Name Value Range Interpretation Code Description Data Claribel rce(s) Supporting Document(s) creatinine,random urine 127.0 mg/dL Creatinine, random Urine [facility] ([facility]) ID Date Data Source [id number] 12/11/2020 01:06:00 AM EST [facility] ([facility]) Name Value Range Interpretation Code Description Data Claribel rce(s) Supporting Document(s) urea nitrogen random urine 622 mg/dL Urea Nitr ogen Random Urine [facility] ([facility]) ID Date Data Source [id number] 12/11/2020 01:06:00 AM EST [facility] ([facility]) Name Value Range Interpretation Code Description Data Claribel rce(s) Supporting Document(s) potassium random urine 55.4 mEq/L Potassium Ran dom Urine [facility] ([facility]) ID Date Data Source [id number] 12/11/2020 01:06:00 AM EST [facility] ([facility]) Name Value Range Interpretation Code Description Data Claribel rce(s) Supporting Document(s) sodium,random urine 35 mEq/L Sodium,random Ur ine [facility] ([facility]) ID Date Data Source [id number] 12/11/2020 01:06:00 AM EST [facility] ([facility]) Name Value Range Interpretation Code Description Data Claribel rce(s) Supporting Document(s) creatinine,random urine 127.0 mg/dL Creatinine, random Urine [facility] ([facility]) ID Date Data Source [id number] 12/11/2020 01:06:00 AM EST [facility] ([facility]) Name Value Range Interpretation Code Description Data Claribel rce(s) Supporting Document(s) urea nitrogen random urine 622 mg/dL Urea Nitr ogen Random Urine [facility] ([facility]) ID Date Data Source [id number] 12/11/2020 01:06:00 AM EST [facility] ([facility]) Name Value Range Interpretation Code Description Data Claribel rce(s) Supporting Document(s) potassium random urine 55.4 mEq/L Potassium Ran dom Urine [facility] ([facility]) ID Date Data Source [id number] 12/11/2020 01:06:00 AM EST [facility] ([facility]) Name Value Range Interpretation Code Description Data Claribel rce(s) Supporting Document(s) sodium,random urine 35 mEq/L Sodium,random Ur ine [facility] ([facility]) ID Date Data Source [id number] 12/11/2020 01:06:00 AM EST [facility] ([facility]) Name Value Range Interpretation Code Description Data Claribel rce(s) Supporting Document(s) creatinine,random urine 127.0 mg/dL Creatinine, random Urine [facility] ([facility]) ID Date Data Source [id number] 12/11/2020 01:06:00 AM EST [facility] ([facility]) Name Value Range Interpretation Code Description Data Claribel rce(s) Supporting Document(s) urea nitrogen random urine 622 mg/dL Urea Nitr ogen Random Urine [facility] ([facility]) ID Date Data Source [id number] 12/11/2020 01:06:00 AM EST [facility] ([facility]) Name Value Range Interpretation Code Description Data Claribel rce(s) Supporting Document(s) potassium random urine 55.4 mEq/L Potassium Ran dom Urine [facility] ([facility]) ID Date Data Source [id number] 12/11/2020 01:06:00 AM EST [facility] ([facility]) Name Value Range Interpretation Code Description Data Claribel rce(s) Supporting Document(s) sodium,random urine 35 mEq/L Sodium,random Ur ine [facility] ([facility]) ID Date Data Source [id number] 12/11/2020 01:06:00 AM EST [facility] ([facility]) Name Value Range Interpretation Code Description Data Claribel rce(s) Supporting Document(s) creatinine,random urine 127.0 mg/dL Creatinine, random Urine [facility] ([facility]) ID Date Data Source [id number] 12/11/2020 01:06:00 AM EST [facility] ([facility]) Name Value Range Interpretation Code Description Data Claribel rce(s) Supporting Document(s) urea nitrogen random urine 622 mg/dL Urea Nitr ogen Random Urine [facility] ([facility]) ID Date Data Source [id number] 12/11/2020 01:06:00 AM EST [facility] ([facility]) Name Value Range Interpretation Code Description Data Claribel rce(s) Supporting Document(s) potassium random urine 55.4 mEq/L Potassium Ran dom Urine [facility] ([facility]) ID Date Data Source [id number] 12/11/2020 01:06:00 AM EST [facility] ([facility]) Name Value Range Interpretation Code Description Data Claribel rce(s) Supporting Document(s) sodium,random urine 35 mEq/L Sodium,random Ur ine [facility] ([facility]) ID Date Data Source [id number] 12/11/2020 01:06:00 AM EST [facility] ([facility]) Name Value Range Interpretation Code Description Data Claribel rce(s) Supporting Document(s) creatinine,random urine 127.0 mg/dL Creatinine, random Urine [facility] ([facility]) ID Date Data Source [id number] 12/11/2020 01:06:00 AM EST [facility] ([facility]) Name Value Range Interpretation Code Description Data Claribel rce(s) Supporting Document(s) urea nitrogen random urine 622 mg/dL Urea Nitr ogen Random Urine [facility] ([facility]) ID Date Data Source [id number] 12/11/2020 01:06:00 AM EST [facility] ([facility]) Name Value Range Interpretation Code Description Data Claribel rce(s) Supporting Document(s) potassium random urine 55.4 mEq/L Potassium Ran dom Urine [facility] ([facility]) ID Date Data Source [id number] 12/11/2020 01:06:00 AM EST [facility] ([facility]) Name Value Range Interpretation Code Description Data Claribel rce(s) Supporting Document(s) sodium,random urine 35 mEq/L Sodium,random Ur ine [facility] ([facility]) ID Date Data Source [id number] 12/11/2020 01:06:00 AM EST [facility] ([facility]) Name Value Range Interpretation Code Description Data Claribel rce(s) Supporting Document(s) creatinine,random urine 127.0 mg/dL Creatinine, random Urine [facility] ([facility]) ID Date Data Source [id number] 12/11/2020 01:06:00 AM EST [facility] ([facility]) Name Value Range Interpretation Code Description Data Claribel rce(s) Supporting Document(s) urea nitrogen random urine 622 mg/dL Urea Nitr ogen Random Urine [facility] ([facility]) ID Date Data Source [id number] 12/11/2020 12:48:00 AM EST [facility] ([facility]) Name Value Range Interpretation Code Description Data Claribel rce(s) Supporting Document(s) bedside glucose 135 mg/dL 70-105 Above high normal Bedside Gluco se [facility] ([facility]) ID Date Data Source [id number] 12/11/2020 12:48:00 AM EST [facility] ([facility]) Name Value Range Interpretation Code Description Data Claribel rce(s) Supporting Document(s) bedside glucose 135 mg/dL 70-105 Above high normal Bedside Gluco se [facility] ([facility]) ID Date Data Source [id number] 12/11/2020 12:48:00 AM EST [facility] ([facility]) Name Value Range Interpretation Code Description Data Claribel rce(s) Supporting Document(s) bedside glucose 135 mg/dL 70-105 Above high normal Bedside Gluco se [facility] ([facility]) ID Date Data Source [id number] 12/11/2020 12:48:00 AM EST [facility] ([facility]) Name Value Range Interpretation Code Description Data Claribel rce(s) Supporting Document(s) bedside glucose 135 mg/dL 70-105 Above high normal Bedside Gluco se [place] ([facility]) ID Date Data Source [id number] 12/11/2020 12:48:00 AM EST [facility] ([facility]) Name Value Range Interpretation Code Description Data Claribel rce(s) Supporting Document(s) bedside glucose 135 mg/dL 70-105 Above high normal Bedside Gluco se [facility] ([facility]) ID Date Data Source [id number] 12/11/2020 12:48:00 AM EST [facility]) Name Value Range Interpretation Code Description Data Claribel rce(s) Supporting Document(s) bedside glucose 135 mg/dL 70-105 Above high normal Bedside Gluco se [facility] ([facility]) ID Date Data Source [id number] 12/11/2020 12:18:00 AM EST [facility] ([facility]) Name Value Range Interpretation Code Description Data Claribel rce(s) Supporting Document(s) osmolality serum 311 mOsm/kg 275-295 Above high normal Osmolality Serum [facility]) ID Date Data Source [id number] 12/11/2020 12:18:00 AM EST [facility] ([facility]) Name Value Range Interpretation Code Description Data Claribel rce(s) Supporting Document(s) phosphorus level 2.4 mg/dL 2.5-4.9 Below low normal Phosphorus Le karma [facility] ([facility]) ID Date Data Source [id number] 12/11/2020 12:18:00 AM EST [facility] ([facility]) Name Value Range Interpretation Code Description Data Claribel rce(s) Supporting Document(s) glucose, fasting 129 mg/dL 70-100 Above high normal Glucose, Fas ting [facility] ([facility]) blood urea nitrogen 26 mg/dL 7-18 Above high normal Blood Ure a Nitrogen [facility] ([facility]) creatinine for GFR 1.51 mg/dL 0.55-1.30 Above high normal Creatinine for GFR [facility] ([facility]) glomerular filtration rate >60 Below low normal Mariza merular Filtration Rate [facility] ([facility]) sodium level 142 mEq/L 136-145 Sodium Level [facility] ([facility]) potassium serum 4.4 mEq/L 3.5-5.1 Potassium Serum [facility] ([facility]) chloride level 114 mEq/L 98-107 Above high normal Chloride Level [place] ([facility]) carbon dioxide level 11 mEq/L 21-32 Below low normal Carbon Di oxide Level [facility] ([facility]) anion gap 17 mEq/L 8-16 Above high normal Anion Gap [facility] ([facility]) calcium level 9.4 mg/dL 8.5-10.1 Calcium Level [facility] ( [facility]) ID Date Data Source [id number] 12/11/2020 12:18:00 AM EST [facility] ([facility]) Name Value Range Interpretation Code Description Data Claribel rce(s) Supporting Document(s) venous pH 7.171 units 7.330-7.430 Below low normal Venous pH [facility] ([facility]) venous partial pressure CO2 26.9 mmHg 38.0-50.0 Below low nor mal Venous Partial Pressure CO2 [facility] ([facility]) venous partial pressure O2 98.1 mmHg 30.0-50.0 Above high nor mal Venous Partial Pressure O2 [facility] ([facility]) venous total CO2 10.4 mEq/L 24.0-28.0 Below low normal Venous Total CO2 [facility] ([facility]) venous HCO3 9.6 mEq/L 23.0-27.0 Below low normal Venous HCO3 [facility] ([facility]) venous base excess -2.0-2.0 Below low normal Venous Base Excess [place] ([facility]) venous standard HCO3 11.7 mEq/L Venous Standard HCO3 [place] ([facility]) venous O2 saturation 97.6 % 60.0-80.0 Above high normal Venous O 2 Saturation [place] ([facility]) ID Date Data Source [id number] 12/11/2020 12:18:00 AM EST [place] ([facility]) Name Value Range Interpretation Code Description Data Claribel rce(s) Supporting Document(s) osmolality serum 311 mOsm/kg 275-295 Above high normal Osmolality Serum [facility] ([facility]) ID Date Data Source [id number] 12/11/2020 12:18:00 AM EST [place] ([facility]) Name Value Range Interpretation Code Description Data Claribel rce(s) Supporting Document(s) phosphorus level 2.4 mg/dL 2.5-4.9 Below low normal Phosphorus Le karma [facility] ([facility]) ID Date Data Source [id number] 12/11/2020 12:18:00 AM EST [place] ([facility]) Name Value Range Interpretation Code Description Data Claribel rce(s) Supporting Document(s) glucose, fasting 129 mg/dL 70-100 Above high normal Glucose, Fas ting [facility] ([facility]) blood urea nitrogen 26 mg/dL 7-18 Above high normal Blood Ure a Nitrogen [facility] [facility] ([facility]) creatinine for GFR 1.51 mg/dL 0.55-1.30 Above high normal Creatinine for GFR [facility] ([facility]) glomerular filtration rate >60 Below low normal Mariza merular Filtration Rate [facility] ([facility]) potassium serum 4.4 mEq/L 3.5-5.1 Potassium Serum [facility] ([facility]) sodium level 142 mEq/L 136-145 Sodium Level [facility] ([facility] [facility]) chloride level 114 mEq/L 98-107 Above high normal Chloride Level [facility] ([facility]) carbon dioxide level 11 mEq/L 21-32 Below low normal Carbon Di oxide Level [facility] ([facility]) anion gap 17 mEq/L 8-16 Above high normal Anion Gap [facility] ([facility]) calcium level 9.4 mg/dL 8.5-10.1 Calcium Level [facility] ( [facility]) ID Date Data Source [id number] 12/11/2020 12:18:00 AM EST [facility] ([facility]) Name Value Range Interpretation Code Description Data Claribel rce(s) Supporting Document(s) venous partial pressure CO2 26.9 mmHg 38.0-50.0 Below low nor mal Venous Partial Pressure CO2 [facility] ([facility]) venous pH 7.171 units 7.330-7.430 Below low normal Venous pH [facility] ([facility]) venous partial pressure O2 98.1 mmHg 30.0-50.0 Above high nor mal Venous Partial Pressure O2 [facility] ([facility]) venous total CO2 10.4 mEq/L 24.0-28.0 Below low normal Venous Total CO2 [facility] ([facility]) venous base excess -2.0-2.0 Below low normal Venous Base Excess [facility] ([facility]) venous HCO3 9.6 mEq/L 23.0-27.0 Below low normal Venous HCO3 [facility] ([facility]) venous standard HCO3 11.7 mEq/L Venous Standard HCO3 [facility] ([facility]) venous O2 saturation 97.6 % 60.0-80.0 Above high normal Venous O 2 Saturation [facility] ([facility]) ID Date Data Source [id number] 12/11/2020 12:18:00 AM EST [facility] ([facility]) Name Value Range Interpretation Code Description Data Claribel rce(s) Supporting Document(s) osmolality serum 311 mOsm/kg 275-295 Above high normal Osmolality Serum [facility] ([facility]) ID Date Data Source [id number] 12/11/2020 12:18:00 AM EST [facility] ([facility]) Name Value Range Interpretation Code Description Data Claribel rce(s) Supporting Document(s) phosphorus level 2.4 mg/dL 2.5-4.9 Below low normal Phosphorus Le karma [facility] ([facility]) ID Date Data Source [id number] 12/11/2020 12:18:00 AM EST [facility] ([facility]) Name Value Range Interpretation Code Description Data Claribel rce(s) Supporting Document(s) glucose, fasting 129 mg/dL 70-100 Above high normal Glucose, Fas ting [facility] ([facility]) blood urea nitrogen 26 mg/dL 7-18 Above high normal Blood Ure a Nitrogen [facility] ([facility]) creatinine for GFR 1.51 mg/dL 0.55-1.30 Above high normal Creatinine for GFR [facility] ([facility]) glomerular filtration rate >60 Below low normal Mariza merular Filtration Rate [facility] ([facility]) sodium level 142 mEq/L 136-145 Sodium Level [facility] ([facility]) potassium serum 4.4 mEq/L 3.5-5.1 Potassium Serum ATHE NA ([facility]) chloride level 114 mEq/L 98-107 Above high normal Chloride Level [facility] ([facility]) carbon dioxide level 11 mEq/L 21-32 Below low normal Carbon Di oxide Level [facility] ([facility]) anion gap 17 mEq/L 8-16 Above high normal Anion Gap [facility] ([facility]) calcium level 9.4 mg/dL 8.5-10.1 Calcium Level [facility] ( [facility]) ID Date Data Source [id number] 12/11/2020 12:18:00 AM EST [facility] ([facility]) Name Value Range Interpretation Code Description Data Claribel rce(s) Supporting Document(s) venous partial pressure CO2 26.9 mmHg 38.0-50.0 Below low nor mal Venous Partial Pressure CO2 [facility] ([facility]) venous pH 7.171 units 7.330-7.430 Below low normal Venous pH [facility] ([facility]) venous partial pressure O2 98.1 mmHg 30.0-50.0 Above high nor mal Venous Partial Pressure O2 [facility] ([facility]) venous total CO2 10.4 mEq/L 24.0-28.0 Below low normal Venous Total CO2 [facility] ([facility]) venous HCO3 9.6 mEq/L 23.0-27.0 Below low normal Venous HCO3 [facility] ([facility]) venous base excess -2.0-2.0 Below low normal Venous Base Excess [facility] ([facility]) venous standard HCO3 11.7 mEq/L Venous Standard HCO3 [facility] ([facility]) venous O2 saturation 97.6 % 60.0-80.0 Above high normal Venous O 2 Saturation [place] ([facility]) ID Date Data Source [id number] 12/11/2020 12:18:00 AM EST [facility] ([facility]) Name Value Range Interpretation Code Description Data Claribel rce(s) Supporting Document(s) osmolality serum 311 mOsm/kg 275-295 Above high normal Osmolality Serum [facility] ([facility]) ID Date Data Source [id number] 12/11/2020 12:18:00 AM EST [facility] ([facility]) Name Value Range Interpretation Code Description Data Claribel rce(s) Supporting Document(s) phosphorus level 2.4 mg/dL 2.5-4.9 Below low normal Phosphorus Le karma [facility] ([facility]) ID Date Data Source [id number] 12/11/2020 12:18:00 AM EST [facility] ([facility]) Name Value Range Interpretation Code Description Data Claribel rce(s) Supporting Document(s) glucose, fasting 129 mg/dL 70-100 Above high normal Glucose, Fas ting [facility] ([facility]) blood urea nitrogen 26 mg/dL 7-18 Above high normal Blood Ure a Nitrogen [facility] ([facility]) creatinine for GFR 1.51 mg/dL 0.55-1.30 Above high normal Creatinine for GFR [facility] ([facility]) glomerular filtration rate >60 Below low normal Mariza merular Filtration Rate [facility] ([facility]) sodium level 142 mEq/L 136-145 Sodium Level [facility] ([facility]) potassium serum 4.4 mEq/L 3.5-5.1 Potassium Serum [facility] NA ([facility]) carbon dioxide level 11 mEq/L 21-32 Below low normal Carbon Di oxide Level [place] ([facility]) chloride level 114 mEq/L 98-107 Above high normal Chloride Level [facility] ([facility]) anion gap 17 mEq/L 8-16 Above high normal Anion Gap [facility] ([facility]) calcium level 9.4 mg/dL 8.5-10.1 Calcium Level [place] ( [facility]) ID Date Data Source [id number] 12/11/2020 12:18:00 AM EST [place] ([facility]) Name Value Range Interpretation Code Description Data Claribel rce(s) Supporting Document(s) venous pH 7.171 units 7.330-7.430 Below low normal Venous pH [facility] ([facility]) venous partial pressure CO2 26.9 mmHg 38.0-50.0 Below low nor mal Venous Partial Pressure CO2 [facility] ([facility]) venous partial pressure O2 98.1 mmHg 30.0-50.0 Above high nor mal Venous Partial Pressure O2 [facility] ([facility]) venous HCO3 9.6 mEq/L 23.0-27.0 Below low normal Venous HCO3 [facility] ([facility]) venous total CO2 10.4 mEq/L 24.0-28.0 Below low normal Venous Total CO2 [facility] ([facility]) venous base excess -2.0-2.0 Below low normal Venous Base Excess [facility] ([facility]) venous standard HCO3 11.7 mEq/L Venous Standard HCO3 [facility] ([facility]) venous O2 saturation 97.6 % 60.0-80.0 Above high normal Venous O 2 Saturation [facility] ([facility]) ID Date Data Source [id number] 12/11/2020 12:18:00 AM EST [facility] ([facility]) Name Value Range Interpretation Code Description Data Claribel rce(s) Supporting Document(s) osmolality serum 311 mOsm/kg 275-295 Above high normal Osmolality Serum [facility] [place] ([facility]) ID Date Data Source [id number] 12/11/2020 12:18:00 AM EST [facility] ([facility]) Name Value Range Interpretation Code Description Data Claribel rce(s) Supporting Document(s) phosphorus level 2.4 mg/dL 2.5-4.9 Below low normal Phosphorus Le karma [facility] ([facility]) ID Date Data Source [id number] 12/11/2020 12:18:00 AM EST [facility] ([facility]) Name Value Range Interpretation Code Description Data Claribel rce(s) Supporting Document(s) glucose, fasting 129 mg/dL 70-100 Above high normal Glucose, Fas ting [facility] ([facility]) blood urea nitrogen 26 mg/dL 7-18 Above high normal Blood Ure a Nitrogen [facility] ([facility]) creatinine for GFR 1.51 mg/dL 0.55-1.30 Above high normal Creatinine for GFR [facility] ([facility]) glomerular filtration rate >60 Below low normal Mariza merular Filtration Rate [facility] ([facility]) sodium level 142 mEq/L 136-145 Sodium Level [facility] ([facility]) potassium serum 4.4 mEq/L 3.5-5.1 Potassium Serum [facility] NA ([facility]) chloride level 114 mEq/L 98-107 Above high normal Chloride Level [facility] ([facility]) carbon dioxide level 11 mEq/L 21-32 Below low normal Carbon Di oxide Level [facility] ([facility]) anion gap 17 mEq/L 8-16 Above high normal Anion Gap [facility] ([facility]) calcium level 9.4 mg/dL 8.5-10.1 Calcium Level [facility] ( [facility]) ID Date Data Source [id number] 12/11/2020 12:18:00 AM EST [facility] ([facility]) Name Value Range Interpretation Code Description Data Claribel rce(s) Supporting Document(s) venous pH 7.171 units 7.330-7.430 Below low normal Venous pH [facility] ([facility]) venous partial pressure CO2 26.9 mmHg 38.0-50.0 Below low nor mal Venous Partial Pressure CO2 [facility] ([facility]) venous partial pressure O2 98.1 mmHg 30.0-50.0 Above high nor mal Venous Partial Pressure O2 [facility] ([facility]) venous total CO2 10.4 mEq/L 24.0-28.0 Below low normal Venous Total CO2 [facility] ([facility]) venous HCO3 9.6 mEq/L 23.0-27.0 Below low normal Venous HCO3 [facility] ([facility]) venous base excess -2.0-2.0 Below low normal Venous Base Excess [facility] ([facility]) venous standard HCO3 11.7 mEq/L Venous Standard HCO3 [facility] ([facility]) venous O2 saturation 97.6 % 60.0-80.0 Above high normal Venous O 2 Saturation [facility] ([facility]) ID Date Data Source [id number] 12/11/2020 12:18:00 AM EST [facility] ([facility]) Name Value Range Interpretation Code Description Data Claribel rce(s) Supporting Document(s) osmolality serum 311 mOsm/kg 275-295 Above high normal Osmolality Serum [facility] ([facility]) ID Date Data Source [id number] 12/11/2020 12:18:00 AM EST [facility] ([facility]) Name Value Range Interpretation Code Description Data Claribel rce(s) Supporting Document(s) phosphorus level 2.4 mg/dL 2.5-4.9 Below low normal Phosphorus Le karma [facility] ([facility]) ID Date Data Source [id number] 12/11/2020 12:18:00 AM EST [facility] ([facility]) Name Value Range Interpretation Code Description Data Claribel rce(s) Supporting Document(s) glucose, fasting 129 mg/dL 70-100 Above high normal Glucose, Fas ting [facility] ([facility]) blood urea nitrogen 26 mg/dL 7-18 Above high normal Blood Ure a Nitrogen [facility] ([facility]) creatinine for GFR 1.51 mg/dL 0.55-1.30 Above high normal Creatinine for GFR [facility] ([facility]) glomerular filtration rate >60 Below low normal Mariza merular Filtration Rate [facility] ([facility]) sodium level 142 mEq/L 136-145 Sodium Level [facility] ([facility]) potassium serum 4.4 mEq/L 3.5-5.1 Potassium Serum [facility] NA ([facility]) chloride level 114 mEq/L 98-107 Above high normal Chloride Level [place] ([facility]) carbon dioxide level 11 mEq/L 21-32 Below low normal Carbon Di oxide Level [facility] ([facility]) anion gap 17 mEq/L 8-16 Above high normal Anion Gap [place] ([facility]) calcium level 9.4 mg/dL 8.5-10.1 Calcium Level [place] ( [facility]) ID Date Data Source [id number] 12/11/2020 12:18:00 AM EST [facility] ([facility]) Name Value Range Interpretation Code Description Data Claribel rce(s) Supporting Document(s) venous pH 7.171 units 7.330-7.430 Below low normal Venous pH [place] ([facility]) venous partial pressure CO2 26.9 mmHg 38.0-50.0 Below low nor mal Venous Partial Pressure CO2 [facility] ([facility]) venous partial pressure O2 98.1 mmHg 30.0-50.0 Above high nor mal Venous Partial Pressure O2 [facility] ([facility]) venous total CO2 10.4 mEq/L 24.0-28.0 Below low normal Venous Total CO2 [facility] ([facility]) venous HCO3 9.6 mEq/L 23.0-27.0 Below low normal Venous HCO3 [facility] ([facility]) venous base excess -2.0-2.0 Below low normal Venous Base Excess [facility] ([facility]) venous standard HCO3 11.7 mEq/L Venous Standard HCO3 [facility] ([facility]) venous O2 saturation 97.6 % 60.0-80.0 Above high normal Venous O 2 Saturation [place] ([facility]) ID Date Data Source [id number] 12/11/2020 12:08:00 AM EST [place] ([facility]) Name Value Range Interpretation Code Description Data Claribel rce(s) Supporting Document(s) bedside glucose 118 mg/dL 70-105 Above high normal Bedside Gluco se [facility]) ID Date Data Source [id number] 12/11/2020 12:08:00 [facility] Name Value Range Interpretation Code Description Data Claribel rce(s) Supporting Document(s) bedside glucose 118 mg/dL 70-105 Above high normal Bedside Gluco se [facility] ([facility]) ID Date Data Source [id number] 12/11/2020 12:08:00 AM [facility] Name Value Range Interpretation Code Description Data Claribel rce(s) Supporting Document(s) bedside glucose 118 mg/dL 70-105 Above high normal Bedside Gluco se [facility]) ID Date Data Source [id number] 12/11/2020 12:08:00 AM EST [facility] ([facility]) Name Value Range Interpretation Code Description Data Claribel rce(s) Supporting Document(s) bedside glucose 118 mg/dL 70-105 Above high normal Bedside Gluco se [facility] ([facility]) ID Date Data Source [id number] 12/11/2020 12:08:00 AM EST [facility] ([facility]) Name Value Range Interpretation Code Description Data Claribel rce(s) Supporting Document(s) bedside glucose 118 mg/dL 70-105 Above high normal Bedside Gluco se [facility] ([facility]) ID Date Data Source [id number] 12/11/2020 12:08:00 AM EST [facility] ([facility]) Name Value Range Interpretation Code Description Data Claribel rce(s) Supporting Document(s) bedside glucose 118 mg/dL 70-105 Above high normal Bedside Gluco se [facility] ([facility]) ID Date Data Source [id number] 12/10/2020 11:06:00 PM EST [facility] ([facility]) Name Value Range Interpretation Code Description Data Claribel rce(s) Supporting Document(s) bedside glucose 102 mg/dL 70-105 Bedside Glucose AT[facility] NA ([facility]) ID Date Data Source [id number] 12/10/2020 11:06:00 PM EST [facility] ([facility]) Name Value Range Interpretation Code Description Data Clariebl rce(s) Supporting Document(s) bedside glucose 102 mg/dL 70-105 Bedside Glucose [facility] NA ([facility]) ID Date Data Source [id number] 12/10/2020 11:06:00 PM EST [facility] ([facility]) Name Value Range Interpretation Code Description Data Claribel rce(s) Supporting Document(s) bedside glucose 102 mg/dL 70-105 Bedside Glucose [facility] NA ([facility]) ID Date Data Source [id number] 12/10/2020 11:06:00 PM EST [facility] ([facility]) Name Value Range Interpretation Code Description Data Claribel rce(s) Supporting Document(s) bedside glucose 102 mg/dL 70-105 Bedside Glucose [facility] NA ([facility]) ID Date Data Source [id number] 12/10/2020 11:06:00 PM EST [facility] ([facility]) Name Value Range Interpretation Code Description Data Claribel rce(s) Supporting Document(s) bedside glucose 102 mg/dL 70-105 Bedside Glucose [facility] NA ([facility]) ID Date Data Source [id number] 12/10/2020 11:06:00 PM EST [facility] ([facility]) Name Value Range Interpretation Code Description Data Claribel rce(s) Supporting Document(s) bedside glucose 102 mg/dL 70-105 Bedside Glucose [facility] NA ([facility]) ID Date Data Source [id number] 12/10/2020 09:50:00 PM EST [facility] ([facility]) Name Value Range Interpretation Code Description Data Claribel rce(s) Supporting Document(s) venous pH 7.294 units 7.330-7.430 Below low normal Venous pH [facility] ([facility]) venous partial pressure O2 213.7 mmHg 30.0-50.0 Above high nor mal Venous Partial Pressure O2 [facility] ([facility]) venous partial pressure CO2 14.3 mmHg 38.0-50.0 Below low nor mal Venous Partial Pressure CO2 [facility] ([facility]) venous total CO2 7.2 mEq/L 24.0-28.0 Below low normal Venous Total CO2 [facility] ([facility]) venous HCO3 6.8 mEq/L 23.0-27.0 Below low normal Venous HCO3 [facility] ([facility]) venous base excess -2.0-2.0 Below low normal Venous Base Excess [facility] ([facility]) venous O2 saturation 99.4 % 60.0-80.0 Above high normal Venous O 2 Saturation [facility] ([facility]) venous standard HCO3 12.3 mEq/L Venous Standard HCO3 [facility] ([facility]) venous site unknown Venous Site [facility] ([facility]) ID Date Data Source [id number] 12/10/2020 09:50:00 PM EST [facility] ([facility]) Name Value Range Interpretation Code Description Data Claribel rce(s) Supporting Document(s) venous pH 7.294 units 7.330-7.430 Below low normal Venous pH [facility] ([facility]) venous partial pressure O2 213.7 mmHg 30.0-50.0 Above high nor mal Venous Partial Pressure O2 [facility] ([facility]) venous total CO2 7.2 mEq/L 24.0-28.0 Below low normal Venous Total CO2 [facility] ([facility]) venous partial pressure CO2 14.3 mmHg 38.0-50.0 Below low nor mal Venous Partial Pressure CO2 [facility] ([facility]) venous base excess -2.0-2.0 Below low normal Venous Base Excess [facility] ([facility]) venous HCO3 6.8 mEq/L 23.0-27.0 Below low normal Venous HCO3 [facility] ([facility]) venous standard HCO3 12.3 mEq/L Venous Standard HCO3 [facility] ([facility]) venous O2 saturation 99.4 % 60.0-80.0 Above high normal Venous O 2 Saturation [facility] ([facility]) venous site unknown Venous Site [facility] ([facility]) ID Date Data Source [id number] 12/10/2020 09:50:00 PM EST [facility] ([facility]) Name Value Range Interpretation Code Description Data Claribel rce(s) Supporting Document(s) venous pH 7.294 units 7.330-7.430 Below low normal Venous pH [facility] ([facility]) venous partial pressure CO2 14.3 mmHg 38.0-50.0 Below low nor mal Venous Partial Pressure CO2 [facility] ([facility]) venous HCO3 6.8 mEq/L 23.0-27.0 Below low normal Venous HCO3 [facility] ([facility]) venous total CO2 7.2 mEq/L 24.0-28.0 Below low normal Venous Total CO2 [facility] ([facility]) venous partial pressure O2 213.7 mmHg 30.0-50.0 Above high nor mal Venous Partial Pressure O2 [facility] ([facility]) venous base excess -2.0-2.0 Below low normal Venous Base Excess [facility] ([facility]) venous site unknown Venous Site [facility] ([facility]) venous O2 saturation 99.4 % 60.0-80.0 Above high normal Venous O 2 Saturation [place] ([facility]) venous standard HCO3 12.3 mEq/L Venous Standard HCO3 [place] ([facility]) ID Date Data Source [id number] 12/10/2020 09:50:00 PM EST [facility] ([facility]) Name Value Range Interpretation Code Description Data Claribel rce(s) Supporting Document(s) venous partial pressure O2 213.7 mmHg 30.0-50.0 Above high nor mal Venous Partial Pressure O2 [facility] ([facility]) venous pH 7.294 units 7.330-7.430 Below low normal Venous pH [facility] ([facility]) venous total CO2 7.2 mEq/L 24.0-28.0 Below low normal Venous Total CO2 [facility] ([facility]) venous partial pressure CO2 14.3 mmHg 38.0-50.0 Below low nor mal Venous Partial Pressure CO2 [facility] ([facility]) venous standard HCO3 12.3 mEq/L Venous Standard HCO3 [facility] ([facility]) venous HCO3 6.8 mEq/L 23.0-27.0 Below low normal Venous HCO3 [facility] ([facility]) venous base excess -2.0-2.0 Below low normal Venous Base Excess [facility] ([facility]) venous site unknown Venous Site [facility] ([facility]) venous O2 saturation 99.4 % 60.0-80.0 Above high normal Venous O 2 Saturation [facility] ([facility]) ID Date Data Source [id number] 12/10/2020 09:50:00 PM EST [facility] ([facility]) Name Value Range Interpretation Code Description Data Claribel rce(s) Supporting Document(s) venous pH 7.294 units 7.330-7.430 Below low normal Venous pH [facility] ([facility]) venous HCO3 6.8 mEq/L 23.0-27.0 Below low normal Venous HCO3 [facility] ([facility]) venous partial pressure O2 213.7 mmHg 30.0-50.0 Above high nor mal Venous Partial Pressure O2 [facility] ([facility]) venous partial pressure CO2 14.3 mmHg 38.0-50.0 Below low nor mal Venous Partial Pressure CO2 [facility] ([facility]) venous total CO2 7.2 mEq/L 24.0-28.0 Below low normal Venous Total CO2 [facility] ([facility]) venous base excess -2.0-2.0 Below low normal Venous Base Excess [facility] ([facility]) venous standard HCO3 12.3 mEq/L Venous Standard HCO3 [facility] ([facility]) venous O2 saturation 99.4 % 60.0-80.0 Above high normal Venous O 2 Saturation [facility] ([facility]) venous site unknown Venous Site [facility] ([facility]) ID Date Data Source [id number] 12/10/2020 09:50:00 PM EST CY[facility] ([facility]) Name Value Range Interpretation Code Description Data Claribel rce(s) Supporting Document(s) venous pH 7.294 units 7.330-7.430 Below low normal Venous pH [facility] ([facility]) venous partial pressure CO2 14.3 mmHg 38.0-50.0 Below low nor mal Venous Partial Pressure CO2 [facility] ([facility]) venous partial pressure O2 213.7 mmHg 30.0-50.0 Above high nor mal Venous Partial Pressure O2 [facility] ([facility]) venous standard HCO3 12.3 mEq/L Venous Standard HCO3 [facility] ([facility]) venous total CO2 7.2 mEq/L 24.0-28.0 Below low normal Venous Total CO2 [facility] ([facility]) venous HCO3 6.8 mEq/L 23.0-27.0 Below low normal Venous HCO3 [facility] ([facility]) venous base excess -2.0-2.0 Below low normal Venous Base Excess [facility] ([facility]) venous site unknown Venous Site [facility] ([facility]) venous O2 saturation 99.4 % 60.0-80.0 Above high normal Venous O 2 Saturation [place] ([facility]) ID Date Data Source [id number] 12/10/2020 09:34:00 PM EST [place] ([facility]) Name Value Range Interpretation Code Description Data Claribel rce(s) Supporting Document(s) bedside glucose 126 mg/dL 70-105 Above high normal Bedside Gluco se [facility]) ID Date Data Source [id number] 12/10/2020 09:34:00 PM EST [facility]) Name Value Range Interpretation Code Description Data Claribel rce(s) Supporting Document(s) bedside glucose 126 mg/dL 70-105 Above high normal [facility] Date Data Source [id number] 12/10/2020 09:34:00 PM EST [facility] ([facility]) Name Value Range Interpretation Code Description Data Claribel rce(s) Supporting Document(s) bedside glucose 126 mg/dL 70-105 Above high normal Bedside Gluco se [facility]) ID Date Data Source [id number] 12/10/2020 09:34:00 PM [facility] Name Value Range Interpretation Code Description Data Claribel rce(s) Supporting Document(s) bedside glucose 126 mg/dL 70-105 Above high normal [facility] ID Date Data Source [id number] 12/10/2020 09:34:00 PM EST [facility] ([facility]) Name Value Range Interpretation Code Description Data Claribel rce(s) Supporting Document(s) bedside glucose 126 mg/dL 70-105 Above high normal Bedside Gluco se [facility] ([facility]) ID Date Data Source [id number] 12/10/2020 09:34:00 PM EST [facility] ([facility]) Name Value Range Interpretation Code Description Data Claribel rce(s) Supporting Document(s) bedside glucose 126 mg/dL 70-105 Above high normal Bedside Gluco se [facility] ([facility]) ID Date Data Source [id number] 12/10/2020 08:54:00 PM EST [facility] ([facility]) Name Value Range Interpretation Code Description Data Claribel rce(s) Supporting Document(s) ID Date Data Source [id number] 12/10/2020 08:54:00 PM EST [facility] ([facility]) Name Value Range Interpretation Code Description Data Claribel rce(s) Supporting Document(s) ID Date Data Source [id number] 12/10/2020 08:54:00 PM EST [facility] ([facility]) Name Value Range Interpretation Code Description Data Claribel rce(s) Supporting Document(s) ID Date Data Source [id number] 12/10/2020 08:54:00 PM EST [facility] ([facility]) Name Value Range Interpretation Code Description Data Claribel rce(s) Supporting Document(s) ID Date Data Source [id number] 12/10/2020 08:54:00 PM EST [facility]) Name Value Range Interpretation Code Description Data Claribel rce(s) Supporting Document(s) ID Date Data Source [id number] 12/10/2020 08:54:00 PM EST [facility] ([facility]) Name Value Range Interpretation Code Description Data Claribel rce(s) Supporting Document(s) ID Date Data Source [id number] 12/10/2020 08:35:00 PM EST [facility] ([facility]) Name Value Range Interpretation Code Description Data Claribel rce(s) Supporting Document(s) ID Date Data Source [id number] 12/10/2020 08:35:00 PM EST [facility] ([facility]) Name Value Range Interpretation Code Description Data Claribel rce(s) Supporting Document(s) osmolality serum 315 mOsm/kg 275-295 Above high normal Osmolality Serum [place] ([facility]) ID Date Data Source [id number] 12/10/2020 08:35:00 PM EST [facility] ([facility]) Name Value Range Interpretation Code Description Data Claribel rce(s) Supporting Document(s) phosphorus level 2.5 mg/dL 2.5-4.9 Phosphorus Level AT [facility]) ID Date Data Source [id number] 12/10/2020 08:35:00 PM EST [facility] ([facility]) Name Value Range Interpretation Code Description Data Claribel rce(s) Supporting Document(s) glucose, fasting 222 mg/dL 70-100 Above high normal Glucose, Fas ting [facility] ([facility]) blood urea nitrogen 27 mg/dL 7-18 Above high normal Blood Ure a Nitrogen [facility] ([facility]) creatinine for GFR 1.67 mg/dL 0.55-1.30 Above high normal Creatinine for GFR [facility] ([facility]) glomerular filtration rate >60 Below low normal Mariza merular Filtration Rate [place] ([facility]) sodium level 138 mEq/L 136-145 Sodium Level [facility] ([facility]) potassium serum 4.7 mEq/L 3.5-5.1 Potassium Serum AT[facility] NA ([facility]) chloride level 110 mEq/L 98-107 Above high normal Chloride Level [facility] ([facility]) carbon dioxide level 10 mEq/L 21-32 Below low normal Carbon Di oxide Level [facility] ([facility]) calcium level 9.9 mg/dL 8.5-10.1 Calcium Level [facility] ( [facility]) anion gap 18 mEq/L 8-16 Above high normal Anion Gap [facility] ([facility]) ID Date Data Source [id number] 12/10/2020 08:35:00 PM EST [facility] ([facility]) Name Value Range Interpretation Code Description Data Claribel rce(s) Supporting Document(s) glucose, fasting 222 mg/dL 70-100 Above high normal Glucose, Fas ting [facility] ([facility]) blood urea nitrogen 27 mg/dL 7-18 Above high normal Blood Ure a Nitrogen [facility] ([facility]) sodium level 138 mEq/L 136-145 Sodium Level [facility] ([facility]) creatinine for GFR 1.67 mg/dL 0.55-1.30 Above high normal Creatinine for GFR [facility] ([facility]) glomerular filtration rate >60 Below low normal Mariza merular Filtration Rate [facility] ([facility]) carbon dioxide level 10 mEq/L 21-32 Below low normal Carbon Di oxide Level [facility] ([facility]) potassium serum 4.7 mEq/L 3.5-5.1 Potassium Serum [facility] ([facility]) chloride level 110 mEq/L 98-107 Above high normal Chloride Level [facility] ([facility]) calcium level 9.9 mg/dL 8.5-10.1 Calcium Level [facility] ( [facility]) anion gap 18 mEq/L 8-16 Above high normal Anion Gap [facility] ([facility]) ID Date Data Source [id number] 12/10/2020 08:35:00 PM EST [facility] ([facility]) Name Value Range Interpretation Code Description Data Claribel rce(s) Supporting Document(s) ID Date Data Source [id number] 12/10/2020 08:35:00 PM EST [facility] ([facility]) Name Value Range Interpretation Code Description Data Claribel rce(s) Supporting Document(s) osmolality serum 315 mOsm/kg 275-295 Above high normal Osmolality Serum [facility] ([facility]) ID Date Data Source [id number] 12/10/2020 08:35:00 PM EST [facility] ([facility]) Name Value Range Interpretation Code Description Data Claribel rce(s) Supporting Document(s) phosphorus level 2.5 mg/dL 2.5-4.9 Phosphorus Level AT [facility]) ID Date Data Source [id number] 12/10/2020 08:35:00 PM EST [facility] ([facility]) Name Value Range Interpretation Code Description Data Claribel rce(s) Supporting Document(s) blood urea nitrogen 27 mg/dL 7-18 Above high normal Blood Ure a Nitrogen [facility] ([facility]) creatinine for GFR 1.67 mg/dL 0.55-1.30 Above high normal Creatinine for GFR CY[facility] ([facility]) glucose, fasting 222 mg/dL 70-100 Above high normal Glucose, Fas ting [facility] ([facility]) glomerular filtration rate >60 Below low normal Mariza merular Filtration Rate [facility] ([facility]) potassium serum 4.7 mEq/L 3.5-5.1 Potassium Serum [facility] ([facility]) sodium level 138 mEq/L 136-145 Sodium Level [facility] ([facility]) chloride level 110 mEq/L 98-107 Above high normal Chloride Level [facility] ([facility]) carbon dioxide level 10 mEq/L 21-32 Below low normal Carbon Di oxide Level [place] ([facility]) anion gap 18 mEq/L 8-16 Above high normal Anion Gap [place] ([facility]) calcium level 9.9 mg/dL 8.5-10.1 Calcium Level [facility] ( [facility]) ID Date Data Source [id number] 12/10/2020 08:35:00 PM EST [facility] ([facility]) Name Value Range Interpretation Code Description Data Claribel rce(s) Supporting Document(s) ID Date Data Source [id number] 12/10/2020 08:35:00 PM EST [facility] ([facility]) Name Value Range Interpretation Code Description Data Claribel rce(s) Supporting Document(s) osmolality serum 315 mOsm/kg 275-295 Above high normal Osmolality Serum [facility] ([facility]) ID Date Data Source [id number] 12/10/2020 08:35:00 PM EST [facility] ([facility]) Name Value Range Interpretation Code Description Data Claribel rce(s) Supporting Document(s) phosphorus level 2.5 mg/dL 2.5-4.9 Phosphorus Level AT [place] ([facility]) ID Date Data Source [id number] 12/10/2020 08:35:00 PM EST [facility] ([facility]) Name Value Range Interpretation Code Description Data Claribel rce(s) Supporting Document(s) glucose, fasting 222 mg/dL 70-100 Above high normal Glucose, Fas ting [facility] ([facility]) glomerular filtration rate >60 Below low normal Mariza merular Filtration Rate [facility] ([facility]) blood urea nitrogen 27 mg/dL 7-18 Above high normal Blood Ure a Nitrogen [facility] ([facility]) creatinine for GFR 1.67 mg/dL 0.55-1.30 Above high normal Creatinine for GFR [facility] ([facility]) chloride level 110 mEq/L 98-107 Above high normal Chloride Level [facility] ([facility]) potassium serum 4.7 mEq/L 3.5-5.1 Potassium Serum [facility] NA ([facility]) sodium level 138 mEq/L 136-145 Sodium Level [facility] (No [facility]) anion gap 18 mEq/L 8-16 Above high normal Anion Gap [facility] ([facility]) carbon dioxide level 10 mEq/L 21-32 Below low normal Carbon Di oxide Level [facility] ([facility]) calcium level 9.9 mg/dL 8.5-10.1 Calcium Level [facility] ( [facility]) ID Date Data Source [id number] 12/10/2020 08:35:00 PM EST [facility] ([facility]) Name Value Range Interpretation Code Description Data Claribel rce(s) Supporting Document(s) ID Date Data Source [id number] 12/10/2020 08:35:00 PM EST [facility] ([facility]) Name Value Range Interpretation Code Description Data Claribel rce(s) Supporting Document(s) osmolality serum 315 mOsm/kg 275-295 Above high normal Osmolality Serum [facility] ([facility]) ID Date Data Source [id number] 12/10/2020 08:35:00 PM EST [facility] ([facility]) Name Value Range Interpretation Code Description Data Claribel rce(s) Supporting Document(s) phosphorus level 2.5 mg/dL 2.5-4.9 Phosphorus Level AT [facility]) ID Date Data Source [id number] 12/10/2020 08:35:00 PM EST [facility] ([facility]) Name Value Range Interpretation Code Description Data Claribel rce(s) Supporting Document(s) blood urea nitrogen 27 mg/dL 7-18 Above high normal Blood Ure a Nitrogen [facility] ([facility]) glucose, fasting 222 mg/dL 70-100 Above high normal Glucose, Fas ting [facility] ([facility]) creatinine for GFR 1.67 mg/dL 0.55-1.30 Above high normal Creatinine for GFR [facility] ([facility]) sodium level 138 mEq/L 136-145 Sodium Level [facility] ([facility]) glomerular filtration rate >60 Below low normal Mariza merular Filtration Rate [facility] ([facility]) potassium serum 4.7 mEq/L 3.5-5.1 Potassium Serum [facility] ([facility]) calcium level 9.9 mg/dL 8.5-10.1 Calcium Level [facility] ( [facility]) anion gap 18 mEq/L 8-16 Above high normal Anion Gap [facility] ([facility]) carbon dioxide level 10 mEq/L 21-32 Below low normal Carbon Di oxide Level [facility] ([facility]) chloride level 110 mEq/L 98-107 Above high normal Chloride Level [facility] ([facility]) ID Date Data Source [id number] 12/10/2020 08:35:00 PM EST [facility] ([facility]) Name Value Range Interpretation Code Description Data Claribel rce(s) Supporting Document(s) ID Date Data Source [id number] 12/10/2020 08:35:00 PM EST [facility] ([facility]) Name Value Range Interpretation Code Description Data Claribel rce(s) Supporting Document(s) osmolality serum 315 mOsm/kg 275-295 Above high normal Osmolality Serum [facility] ([facility]) ID Date Data Source [id number] 12/10/2020 08:35:00 PM EST [facility] ([facility]) Name Value Range Interpretation Code Description Data Claribel rce(s) Supporting Document(s) phosphorus level 2.5 mg/dL 2.5-4.9 Phosphorus Level AT [facility]) ID Date Data Source [id number] 12/10/2020 08:35:00 PM EST [facility] ([facility]) Name Value Range Interpretation Code Description Data Claribel rce(s) Supporting Document(s) ID Date Data Source [id number] 12/10/2020 08:35:00 PM EST [facility] ([facility]) Name Value Range Interpretation Code Description Data Claribel rce(s) Supporting Document(s) osmolality serum 315 mOsm/kg 275-295 Above high normal Osmolality Serum [place] ([facility]) ID Date Data Source [id number] 12/10/2020 08:35:00 PM EST [facility] ([facility]) Name Value Range Interpretation Code Description Data Claribel rce(s) Supporting Document(s) phosphorus level 2.5 mg/dL 2.5-4.9 Phosphorus Level AT [facility] ([facility]) ID Date Data Source [id number] 12/10/2020 08:35:00 PM EST [facility] ([facility]) Name Value Range Interpretation Code Description Data Claribel rce(s) Supporting Document(s) glucose, fasting 222 mg/dL 70-100 Above high normal Glucose, Fas ting [facility] ([facility]) blood urea nitrogen 27 mg/dL 7-18 Above high normal Blood Ure a Nitrogen [facility] ([facility]) glomerular filtration rate >60 Below low normal Mariza merular Filtration Rate [facility] ([facility]) creatinine for GFR 1.67 mg/dL 0.55-1.30 Above high normal Creatinine for GFR [facility] ([facility]) chloride level 110 mEq/L 98-107 Above high normal Chloride Level [facility] ([facility]) sodium level 138 mEq/L 136-145 Sodium Level [facility] (No [facility]) carbon dioxide level 10 mEq/L 21-32 Below low normal Carbon Di oxide Level [facility] ([facility]) potassium serum 4.7 mEq/L 3.5-5.1 Potassium Serum AT[facility] NA ([facility]) calcium level 9.9 mg/dL 8.5-10.1 Calcium Level [place] ( [facility]) anion gap 18 mEq/L 8-16 Above high normal Anion Gap [place] ([facility]) ID Date Data Source [id number] 12/10/2020 08:27:00 PM EST [facility] ([facility]) Name Value Range Interpretation Code Description Data Claribel rce(s) Supporting Document(s) bedside glucose 206 mg/dL 70-105 Above high normal Bedside Gluco se [facility] ([facility]) ID Date Data Source [id number] 12/10/2020 08:27:00 PM EST [facility] ([facility]) Name Value Range Interpretation Code Description Data Claribel rce(s) Supporting Document(s) bedside glucose 206 mg/dL 70-105 Above high normal Bedside Gluco se [facility] ([facility]) ID Date Data Source [id number] 12/10/2020 08:27:00 PM EST [facility] ([facility]) Name Value Range Interpretation Code Description Data Claribel rce(s) Supporting Document(s) bedside glucose 206 mg/dL 70-105 Above high normal Bedside Gluco se [facility] ([facility]) ID Date Data Source [id number] 12/10/2020 08:27:00 PM EST [facility] ([facility]) Name Value Range Interpretation Code Description Data Claribel rce(s) Supporting Document(s) bedside glucose 206 mg/dL 70-105 Above high normal Bedside Gluco se [facility] ([facility]) ID Date Data Source [id number] 12/10/2020 08:27:00 PM EST [facility] ([facility]) Name Value Range Interpretation Code Description Data Claribel rce(s) Supporting Document(s) bedside glucose 206 mg/dL 70-105 Above high normal Bedside Gluco se [facility] ([facility]) ID Date Data Source [id number] 12/10/2020 08:27:00 PM EST [facility] ([facility]) Name Value Range Interpretation Code Description Data Claribel rce(s) Supporting Document(s) bedside glucose 206 mg/dL 70-105 Above high normal Bedside Gluco se [place] ([facility]) ID Date Data Source [id number] 12/10/2020 07:46:00 PM EST [place] ([facility]) Name Value Range Interpretation Code Description Data Claribel rce(s) Supporting Document(s) sars covid-19 amplification negative negative Sars Cov id-19 Amplification [place] ([facility]) ID Date Data Source [id number] 12/10/2020 07:46:00 PM EST [facility]) Name Value Range Interpretation Code Description Data Claribel rce(s) Supporting Document(s) sars covid-19 amplification negative negative Sars Cov id-19 Amplification [facility]) ID Date Data Source [id number] 12/10/2020 07:46:00 PM EST [facility]) Name Value Range Interpretation Code Description Data Claribel rce(s) Supporting Document(s) sars covid-19 amplification negative negative Sars Cov id-19 Amplification [facility]) ID Date Data Source [id number] 12/10/2020 07:46:00 PM EST [facility]) Name Value Range Interpretation Code Description Data Claribel rce(s) Supporting Document(s) sars covid-19 amplification negative negative Sars Cov id-19 Amplification [facility]) ID Date Data Source [id number] 12/10/2020 07:46:00 PM EST [facility]) Name Value Range Interpretation Code Description Data Claribel rce(s) Supporting Document(s) sars covid-19 amplification negative negative Sars Cov id-19 Amplification [facility]) ID Date Data Source [id number] 12/10/2020 07:46:00 PM EST [facility] Name Value Range Interpretation Code Description Data Claribel rce(s) Supporting Document(s) SARS coronavirus 2 RNA [Presence] in Res piratory specimen by ANDREE with probe detection NEGATIVE [facility] This lab was ordered by [facility] a nd reported by [facility]. ID Date Data Source [id number] 12/10/2020 07:46:00 PM EST [place] ([facility]) Name Value Range Interpretation Code Description Data Claribel rce(s) Supporting Document(s) sars covid-19 amplification negative negative Sars Cov id-19 Amplification [facility]) ID Date Data Source [id number] 12/10/2020 06:53:00 PM EST [place] ([facility]) Name Value Range Interpretation Code Description Data Claribel rce(s) Supporting Document(s) bedside glucose 342 mg/dL 70-105 Above high normal Bedside Gluco se [facility]) ID Date Data Source [id number] 12/10/2020 06:53:00 PM EST [facility]) Name Value Range Interpretation Code Description Data Claribel rce(s) Supporting Document(s) bedside glucose 342 mg/dL 70-105 Above high normal Bedside Gluco se [facility]) ID Date Data Source [id number] 12/10/2020 06:53:00 PM EST [facility]) Name Value Range Interpretation Code Description Data Claribel rce(s) Supporting Document(s) bedside glucose 342 mg/dL 70-105 Above high normal Bedside Gluco se [facility]) ID Date Data Source [id number] 12/10/2020 06:53:00 PM EST [facility]) Name Value Range Interpretation Code Description Data Claribel rce(s) Supporting Document(s) bedside glucose 342 mg/dL 70-105 Above high normal Bedside Gluco se [facility] ([facility]) ID Date Data Source [id number] 12/10/2020 06:53:00 PM EST [facility] ([facility]) Name Value Range Interpretation Code Description Data Claribel rce(s) Supporting Document(s) bedside glucose 342 mg/dL 70-105 Above high normal Bedside Gluco se [facility] ([facility]) ID Date Data Source [id number] 12/10/2020 06:53:00 PM EST [facility] ([facility]) Name Value Range Interpretation Code Description Data Claribel rce(s) Supporting Document(s) bedside glucose 342 mg/dL 70-105 Above high normal Bedside Gluco se [facility] ([facility]) ID Date Data Source [id number] 12/10/2020 05:58:00 PM EST [facility] ([facility]) Name Value Range Interpretation Code Description Data Claribel rce(s) Supporting Document(s) lipase 58 U/L 73-393 Below low normal Lipase [facility] ( [facility]) ID Date Data Source [id number] 12/10/2020 05:58:00 PM EST [facility] ([facility]) Name Value Range Interpretation Code Description Data Claribel rce(s) Supporting Document(s) magnesium level 2.3 mg/dL 1.8-2.4 Magnesium Level [facility] ([facility]) ID Date Data Source [id number] 12/10/2020 05:58:00 PM EST [facility] ([facility]) Name Value Range Interpretation Code Description Data Claribel rce(s) Supporting Document(s) ALT/SGPT 20 U/L 12-78 ALT/SGPT [facility] ([facility]) AST/SGOT 12 U/L 7-37 AST/SGOT [facility] ([facility]) bilirubin,direct < 0.1 0.0-0.2 Bilirubin,direct AT [place] ([facility]) bilirubin,total 0.4 mg/dL 0.2-1.0 Bilirubin,total [facility] ([facility]) alkaline phosphatase 108 U/L 45-117 Alkaline Phosph atase [facility] ([facility]) albumin 3.7 gm/dL 3.2-5.2 Albumin [facility] ([facility]) total protein 8.2 gm/dL 6.4-8.2 Total Protein [facility] ( [facility]) albumin/globulin ratio 1.2-2.2 Below low normal Albumin /globulin Ratio [facility] ([facility]) ID Date Data Source [id number] 12/10/2020 05:58:00 PM EST [facility] [place] ([facility]) Name Value Range Interpretation Code Description Data Claribel rce(s) Supporting Document(s) lactic acid sepsis protocol 1.2 mmol/L 0.4-2.0 Lactic A bro Sepsis Protocol [facility] ([facility]) ID Date Data Source [id number] 12/10/2020 05:58:00 PM EST [facility] ([facility]) Name Value Range Interpretation Code Description Data Claribel rce(s) Supporting Document(s) red blood count 5.54 10 4.00-5.40 Above high normal Red Blood Cou nt [facility] ([facility]) white blood count 10.7 10 4.0-10.0 Above high normal White Blood Count [facility] ([facility]) hemoglobin 16.3 g/dL 12.0-15.5 Above high normal Hemoglobin [facility] ([facility]) hematocrit 51.1 % 36.0-47.0 Above high normal Hematocrit [facility] ([facility]) mean corpuscular volume 92.2 fL 80.0-96.0 Mean Corpusc ular Volume [facility] ([facility]) mean corpuscular hemoglobin 29.4 pg 27.0-33.0 Mean Cor puscular Hemoglobin [facility] ([facility]) mean corpuscular HGB conc 31.9 g/dL 32.0-36.5 Below low margaux l Mean Corpuscular HGB Conc [facility] ([facility]) red cell distribution width 13.1 % 11.5-14.5 Red Cell Distribution Width [facility] ([facility]) neutrophils % 81.9 % 36.0-66.0 Above high normal Neutrophils % A [facility] ([facility]) platelet count, automated 313 10 150-450 Platelet C ount, Automated [facility] ([facility]) mono % 5.4 % 0.0-5.0 Above high normal [place] % [facility] ([facility]) lymph % 12.0 % 24.0-44.0 Below low normal Lymph % [facility] ( [facility]) eos % 0.0 % 0.0-3.0 Eos % [facility] ([facility]) baso % 0.4 % 0.0-1.0 Baso % [facility] ([facility]) immature granulocyte % 0.3 % 0-3.0 Immature Gran ulocyte % [facility] ([facility]) nucleated red blood cell % 0.0 % 0-0 Nucleated Red Blood Cell % [facility] ([facility]) neutrophils # 8.8 10 1.5-8.5 Above high normal Neutrophils # A [facility] ([facility]) lymph # 1.3 10 1.5-5.0 Below low normal Lymph # [facility] ( [facility]) mono # 0.6 10 0.0-0.8 [place] # [facility] ([facility]) eos # 0.0 10 0.0-0.5 Eos # [facility] ([facility]) baso # 0.0 10 0.0-0.2 Baso # [facility] ([facility]) ID Date Data Source [id number] 12/10/2020 05:58:00 PM EST [facility] ([facility]) Name Value Range Interpretation Code Description Data Claribel rce(s) Supporting Document(s) lipase 58 U/L 73-393 Below low normal Lipase [facility] ( [facility]) ID Date Data Source [id number] 12/10/2020 05:58:00 PM EST [facility] ([facility]) Name Value Range Interpretation Code Description Data Claribel rce(s) Supporting Document(s) magnesium level 2.3 mg/dL 1.8-2.4 Magnesium Level [facility] ([facility]) ID Date Data Source [id number] 12/10/2020 05:58:00 PM EST [facility] ([facility]) Name Value Range Interpretation Code Description Data Claribel rce(s) Supporting Document(s) AST/SGOT 12 U/L 7-37 AST/SGOT [facility] ([facility]) alkaline phosphatase 108 U/L 45-117 Alkaline Phosph atase [facility] ([facility]) bilirubin,direct < 0.1 0.0-0.2 Bilirubin,direct AT [facility] ([facility]) bilirubin,total 0.4 mg/dL 0.2-1.0 Bilirubin,total [facility] ([facility]) ALT/SGPT 20 U/L 12-78 ALT/SGPT [facility] ([facility]) total protein 8.2 gm/dL 6.4-8.2 Total Protein [facility] ( [facility]) albumin 3.7 gm/dL 3.2-5.2 Albumin [facility] ([facility]) albumin/globulin ratio 1.2-2.2 Below low normal Albumin /globulin Ratio [facility] ([facility]) ID Date Data Source [id number] 12/10/2020 05:58:00 PM EST [facility] ([facility]) Name Value Range Interpretation Code Description Data Claribel rce(s) Supporting Document(s) lactic acid sepsis protocol 1.2 mmol/L 0.4-2.0 Lactic A bro Sepsis Protocol [facility] ([facility]) ID Date Data Source [id number] 12/10/2020 05:58:00 PM EST [place] ([facility]) Name Value Range Interpretation Code Description Data Claribel rce(s) Supporting Document(s) hemoglobin 16.3 g/dL 12.0-15.5 Above high normal Hemoglobin [facility] ([facility]) red blood count 5.54 10 4.00-5.40 Above high normal Red Blood Cou nt [facility] ([facility]) white blood count 10.7 10 4.0-10.0 Above high normal White Blood Count [facility] ([facility]) mean corpuscular volume 92.2 fL 80.0-96.0 Mean Corpusc ular Volume [facility] ([facility]) hematocrit 51.1 % 36.0-47.0 Above high normal Hematocrit [facility] ([facility]) mean corpuscular HGB conc 31.9 g/dL 32.0-36.5 Below low margaux l Mean Corpuscular HGB Conc [place] ([facility]) mean corpuscular hemoglobin 29.4 pg 27.0-33.0 Mean Cor puscular Hemoglobin [facility] ([facility]) red cell distribution width 13.1 % 11.5-14.5 Red Cell Distribution Width [facility] ([facility]) lymph % 12.0 % 24.0-44.0 Below low normal Lymph % [place] ( [facility]) neutrophils % 81.9 % 36.0-66.0 Above high normal Neutrophils % A [facility] ([facility]) platelet count, automated 313 10 150-450 Platelet C ount, Automated [facility] ([facility]) eos % 0.0 % 0.0-3.0 Eos % [facility] ([facility]) baso % 0.4 % 0.0-1.0 Baso % [facility] ([facility]) mono % 5.4 % 0.0-5.0 Above high normal [place] % [place] ([facility]) nucleated red blood cell % 0.0 % 0-0 Nucleated Red Blood Cell % [facility] ([facility]) immature granulocyte % 0.3 % 0-3.0 Immature Gran ulocyte % [place] ([facility]) lymph # 1.3 10 1.5-5.0 Below low normal Lymph # [facility] ( [facility]) mono # 0.6 10 0.0-0.8 [place] # [facility] ([facility]) neutrophils # 8.8 10 1.5-8.5 Above high normal Neutrophils # A [facility] ([facility]) eos # 0.0 10 0.0-0.5 Eos # [facility] ([facility]) baso # 0.0 10 0.0-0.2 Baso # [facility] ([facility]) ID Date Data Source [id number] 12/10/2020 05:58:00 PM EST [facility] ([facility]) Name Value Range Interpretation Code Description Data Claribel rce(s) Supporting Document(s) lipase 58 U/L 73-393 Below low normal Lipase [facility] ( [facility]) ID Date Data Source [id number] 12/10/2020 05:58:00 PM EST [facility] ([facility]) Name Value Range Interpretation Code Description Data Claribel rce(s) Supporting Document(s) magnesium level 2.3 mg/dL 1.8-2.4 Magnesium Level [facility] NA ([facility]) ID Date Data Source [id number] 12/10/2020 05:58:00 PM EST [facility] ([facility]) Name Value Range Interpretation Code Description Data Claribel rce(s) Supporting Document(s) ALT/SGPT 20 U/L 12-78 ALT/SGPT [facility] ([facility]) AST/SGOT 12 U/L 7-37 AST/SGOT [facility] ([facility]) bilirubin,direct < 0.1 0.0-0.2 Bilirubin,direct AT [place] ([facility]) bilirubin,total 0.4 mg/dL 0.2-1.0 Bilirubin,total [facility] ([facility]) alkaline phosphatase 108 U/L 45-117 Alkaline Phosph atase [facility] ([facility]) albumin/globulin ratio 1.2-2.2 Below low normal Albumin /globulin Ratio [facility] ([facility]) albumin 3.7 gm/dL 3.2-5.2 Albumin [facility] ([facility]) total protein 8.2 gm/dL 6.4-8.2 Total Protein [facility] ( [facility]) ID Date Data Source [id number] 12/10/2020 05:58:00 PM EST [place] ([facility]) Name Value Range Interpretation Code Description Data Claribel rce(s) Supporting Document(s) lactic acid sepsis protocol 1.2 mmol/L 0.4-2.0 Lactic A bro Sepsis Protocol [facility] ([facility]) ID Date Data Source [id number] 12/10/2020 05:58:00 PM EST [place] ([facility]) Name Value Range Interpretation Code Description Data Claribel rce(s) Supporting Document(s) red blood count 5.54 10 4.00-5.40 Above high normal Red Blood Cou nt [facility] ([facility]) white blood count 10.7 10 4.0-10.0 Above high normal White Blood Count [facility]) mean corpuscular volume 92.2 fL 80.0-96.0 Mean Corpusc ular Volume [facility] ([facility]) hemoglobin 16.3 g/dL 12.0-15.5 Above high normal Hemoglobin [facility] ([facility]) hematocrit 51.1 % 36.0-47.0 Above high normal Hematocrit [facility] ([facility]) mean corpuscular hemoglobin 29.4 pg 27.0-33.0 Mean Cor puscular Hemoglobin [facility] ([facility]) red cell distribution width 13.1 % 11.5-14.5 Red Cell Distribution Width [facility] [place] ([facility]) mean corpuscular HGB conc 31.9 g/dL 32.0-36.5 Below low margaux l Mean Corpuscular HGB Conc [facility] ([facility]) platelet count, automated 313 10 150-450 Platelet C ount, Automated [facility] ([facility]) neutrophils % 81.9 % 36.0-66.0 Above high normal Neutrophils % A [facility] ([facility]) lymph % 12.0 % 24.0-44.0 Below low normal Lymph % [facility] ( [facility]) mono % 5.4 % 0.0-5.0 Above high normal [place] % [facility] ([facility]) eos % 0.0 % 0.0-3.0 Eos % [facility] ([facility]) baso % 0.4 % 0.0-1.0 Baso % [facility] ([facility]) nucleated red blood cell % 0.0 % 0-0 Nucleated Red Blood Cell % [facility] ([facility]) immature granulocyte % 0.3 % 0-3.0 Immature Gran ulocyte % [facility] ([facility]) neutrophils # 8.8 10 1.5-8.5 Above high normal Neutrophils # A [facility] ([facility]) lymph # 1.3 10 1.5-5.0 Below low normal Lymph # [facility] ( [facility]) mono # 0.6 10 0.0-0.8 [place] # [facility] ([facility]) eos # 0.0 10 0.0-0.5 Eos # [facility] ([facility]) baso # 0.0 10 0.0-0.2 Baso # [facility] ([facility]) ID Date Data Source [id number] 12/10/2020 05:58:00 PM EST [facility] ([facility]) Name Value Range Interpretation Code Description Data Claribel rce(s) Supporting Document(s) lipase 58 U/L 73-393 Below low normal Lipase [place] ( [facility]) ID Date Data Source [id number] 12/10/2020 05:58:00 PM EST [facility] ([facility]) Name Value Range Interpretation Code Description Data Claribel rce(s) Supporting Document(s) magnesium level 2.3 mg/dL 1.8-2.4 Magnesium Level [facility] NA ([facility]) ID Date Data Source [id number] 12/10/2020 05:58:00 PM EST [facility] ([facility]) Name Value Range Interpretation Code Description Data Claribel rce(s) Supporting Document(s) ALT/SGPT 20 U/L 12-78 ALT/SGPT [facility] ([facility]) AST/SGOT 12 U/L 7-37 AST/SGOT [facility] ([facility]) alkaline phosphatase 108 U/L 45-117 Alkaline Phosph atase [facility] ([facility]) bilirubin,total 0.4 mg/dL 0.2-1.0 Bilirubin,total [facility] ([facility]) bilirubin,direct < 0.1 0.0-0.2 Bilirubin,direct AT [place] ([facility]) total protein 8.2 gm/dL 6.4-8.2 Total Protein [facility] ( [facility]) albumin 3.7 gm/dL 3.2-5.2 Albumin [facility] ([facility]) albumin/globulin ratio 1.2-2.2 Below low normal Albumin /globulin Ratio [facility] ([facility]) ID Date Data Source [id number] 12/10/2020 05:58:00 PM EST [facility] ([facility]) Name Value Range Interpretation Code Description Data Claribel rce(s) Supporting Document(s) lactic acid sepsis protocol 1.2 mmol/L 0.4-2.0 Lactic A bro Sepsis Protocol [facility] ([facility]) ID Date Data Source [id number] 12/10/2020 05:58:00 PM EST [facility] ([facility]) Name Value Range Interpretation Code Description Data Claribel rce(s) Supporting Document(s) red blood count 5.54 10 4.00-5.40 Above high normal Red Blood Cou nt [facility] ([facility]) white blood count 10.7 10 4.0-10.0 Above high normal White Blood Count [facility] ([facility]) hemoglobin 16.3 g/dL 12.0-15.5 Above high normal Hemoglobin [facility] ([facility]) hematocrit 51.1 % 36.0-47.0 Above high normal Hematocrit [facility] ([facility]) mean corpuscular volume 92.2 fL 80.0-96.0 Mean Corpusc ular Volume [facility] ([facility]) mean corpuscular hemoglobin 29.4 pg 27.0-33.0 Mean Cor puscular Hemoglobin [facility] ([facility]) mean corpuscular HGB conc 31.9 g/dL 32.0-36.5 Below low marg[place] l Mean Corpuscular HGB Conc [facility] ([facility]) red cell distribution width 13.1 % 11.5-14.5 Red Cell Distribution Width [facility] ([facility]) neutrophils % 81.9 % 36.0-66.0 Above high normal Neutrophils % A [facility] ([facility]) lymph % 12.0 % 24.0-44.0 Below low normal Lymph % [facility] ( [facility]) platelet count, automated 313 10 150-450 Platelet C ount, Automated [facility] ([facility]) mono % 5.4 % 0.0-5.0 Above high normal [place] % [facility] ([facility]) eos % 0.0 % 0.0-3.0 Eos % [facility] ([facility]) baso % 0.4 % 0.0-1.0 Baso % [facility] ([facility]) immature granulocyte % 0.3 % 0-3.0 Immature Gran ulocyte % [facility] ([facility]) nucleated red blood cell % 0.0 % 0-0 Nucleated Red Blood Cell % [facility] ([facility]) lymph # 1.3 10 1.5-5.0 Below low normal Lymph # [facility] ( [facility]) neutrophils # 8.8 10 1.5-8.5 Above high normal [facility]ils # [facility] mono # 0.6 10 0.0-0.8 [place] # [facility] ([facility]) eos # 0.0 10 0.0-0.5 Eos # [facility] ([facility]) baso # 0.0 10 0.0-0.2 Baso # [facility] ([facility]) ID Date Data Source [id number] 12/10/2020 05:58:00 PM EST [facility] ([facility]) Name Value Range Interpretation Code Description Data Claribel rce(s) Supporting Document(s) lipase 58 U/L 73-393 Below low normal Lipase [facility] ( [facility]) ID Date Data Source [id number] 12/10/2020 05:58:00 PM EST [facility] ([facility]) Name Value Range Interpretation Code Description Data Claribel rce(s) Supporting Document(s) magnesium level 2.3 mg/dL 1.8-2.4 Magnesium Level [facility] NA ([facility]) ID Date Data Source [id number] 12/10/2020 05:58:00 PM EST [facility] ([facility]) Name Value Range Interpretation Code Description Data Claribel rce(s) Supporting Document(s) AST/SGOT 12 U/L 7-37 AST/SGOT [facility] ([facility]) alkaline phosphatase 108 U/L 45-117 Alkaline Phosph atase [facility] ([facility]) bilirubin,total 0.4 mg/dL 0.2-1.0 Bilirubin,total [facility] ([facility]) ALT/SGPT 20 U/L 12-78 ALT/SGPT [facility] ([facility]) total protein 8.2 gm/dL 6.4-8.2 Total Protein [facility] ( [facility]) albumin 3.7 gm/dL 3.2-5.2 Albumin [facility] ([facility]) bilirubin,direct < 0.1 0.0-0.2 Bilirubin,direct AT [place] ([facility]) albumin/globulin ratio 1.2-2.2 Below low normal Albumin /globulin Ratio [facility] ([facility]) ID Date Data Source [id number] 12/10/2020 05:58:00 PM EST [facility] ([facility]) Name Value Range Interpretation Code Description Data Claribel rce(s) Supporting Document(s) lactic acid sepsis protocol 1.2 mmol/L 0.4-2.0 Lactic A bro Sepsis Protocol [facility] [place] ([facility]) ID Date Data Source [id number] 12/10/2020 05:58:00 PM EST [facility] ([facility]) Name Value Range Interpretation Code Description Data Claribel rce(s) Supporting Document(s) white blood count 10.7 10 4.0-10.0 Above high normal White Blood Count [facility] ([facility]) hemoglobin 16.3 g/dL 12.0-15.5 Above high normal Hemoglobin [place] ([facility]) red blood count 5.54 10 4.00-5.40 Above high normal Red Blood Cou nt [place] ([facility]) hematocrit 51.1 % 36.0-47.0 Above high normal Hematocrit [place] ([facility]) mean corpuscular hemoglobin 29.4 pg 27.0-33.0 Mean Cor puscular Hemoglobin [facility] [place] ([facility]) mean corpuscular volume 92.2 fL 80.0-96.0 Mean Corpusc ular Volume [facility] ([facility]) mean corpuscular HGB conc 31.9 g/dL 32.0-36.5 Below low margaux l Mean Corpuscular HGB Conc [facility] ([facility]) red cell distribution width 13.1 % 11.5-14.5 Red Cell Distribution Width [place] ([facility]) platelet count, automated 313 10 150-450 Platelet C ount, Automated [facility]) lymph % 12.0 % 24.0-44.0 Below low normal Lymph % [place] ( [facility]) neutrophils % 81.9 % 36.0-66.0 Above high normal Neutrophils % [facility] mono % 5.4 % 0.0-5.0 Above high normal [place] % [facility] ([facility]) baso % 0.4 % 0.0-1.0 Baso % [facility] ([facility]) eos % 0.0 % 0.0-3.0 Eos % [facility] ([facility]) nucleated red blood cell % 0.0 % 0-0 Nucleated Red Blood Cell % [facility] ([facility]) immature granulocyte % 0.3 % 0-3.0 Immature Gran ulocyte % [facility] ([facility]) lymph # 1.3 10 1.5-5.0 Below low normal Lymph # [facility] ( [facility]) neutrophils # 8.8 10 1.5-8.5 Above high normal Neutrophils # A [facility] ([facility]) mono # 0.6 10 0.0-0.8 [place] # [facility] ([facility]) baso # 0.0 10 0.0-0.2 Baso # [facility] ([facility]) eos # 0.0 10 0.0-0.5 Eos # [facility] ([facility]) ID Date Data Source [id number] 12/10/2020 05:58:00 PM EST [facility] ([facility]) Name Value Range Interpretation Code Description Data Claribel rce(s) Supporting Document(s) lipase 58 U/L 73-393 Below low normal Lipase [facility] ( [facility]) ID Date Data Source [id number] 12/10/2020 05:58:00 PM EST [facility] ([facility]) Name Value Range Interpretation Code Description Data Claribel rce(s) Supporting Document(s) magnesium level 2.3 mg/dL 1.8-2.4 Magnesium Level [facility] ([facility]) ID Date Data Source [id number] 12/10/2020 05:58:00 PM EST [facility] ([facility] [facility]) Name Value Range Interpretation Code Description Data Claribel rce(s) Supporting Document(s) AST/SGOT 12 U/L 7-37 AST/SGOT [facility] ([facility]) alkaline phosphatase 108 U/L 45-117 Alkaline Phosph atase [facility] ([facility]) ALT/SGPT 20 U/L 12-78 ALT/SGPT [facility] ([facility]) bilirubin,total 0.4 mg/dL 0.2-1.0 Bilirubin,total ATHE NA ([facility]) bilirubin,direct < 0.1 0.0-0.2 Bilirubin,direct AT [place] ([facility]) albumin 3.7 gm/dL 3.2-5.2 Albumin [facility] ([facility]) total protein 8.2 gm/dL 6.4-8.2 Total Protein [facility] ( [facility]) albumin/globulin ratio 1.2-2.2 Below low normal Albumin /globulin Ratio [place] ([facility]) ID Date Data Source [id number] 12/10/2020 05:58:00 PM EST [place] ([facility]) Name Value Range Interpretation Code Description Data Claribel rce(s) Supporting Document(s) lactic acid sepsis protocol 1.2 mmol/L 0.4-2.0 Lactic A bro Sepsis Protocol [place] ([facility]) ID Date Data Source [id number] 12/10/2020 05:58:00 PM EST [place] ([facility]) Name Value Range Interpretation Code Description Data Claribel rce(s) Supporting Document(s) white blood count 10.7 10 4.0-10.0 Above high normal White Blood Count [facility] ([facility]) hemoglobin 16.3 g/dL 12.0-15.5 Above high normal Hemoglobin [facility] ([facility]) red blood count 5.54 10 4.00-5.40 Above high normal Red Blood Cou nt [facility] ([facility]) mean corpuscular volume 92.2 fL 80.0-96.0 Mean Corpusc ular Volume [facility] ([facility]) hematocrit 51.1 % 36.0-47.0 Above high normal Hematocrit [facility] ([facility]) mean corpuscular hemoglobin 29.4 pg 27.0-33.0 Mean Cor puscular Hemoglobin [facility] ([facility]) platelet count, automated 313 10 150-450 Platelet C ount, Automated [facility] ([facility]) mean corpuscular HGB conc 31.9 g/dL 32.0-36.5 Below low margaux l Mean Corpuscular HGB Conc [facility] ([facility]) red cell distribution width 13.1 % 11.5-14.5 Red Cell Distribution Width [facility] ([facility]) lymph % 12.0 % 24.0-44.0 Below low normal Lymph % [facility] ( [facility]) neutrophils % 81.9 % 36.0-66.0 Above high normal [facility]rophils % [facility] mono % 5.4 % 0.0-5.0 Above high normal [place] % [facility] ([facility]) eos % 0.0 % 0.0-3.0 Eos % [facility] ([facility]) baso % 0.4 % 0.0-1.0 Baso % [facility] ([facility]) immature granulocyte % 0.3 % 0-3.0 Immature Gran ulocyte % [facility] ([facility]) neutrophils # 8.8 10 1.5-8.5 Above high normal Neutrophils # A [facility] ([facility]) lymph # 1.3 10 1.5-5.0 Below low normal Lymph # [facility] ( [facility]) nucleated red blood cell % 0.0 % 0-0 Nucleated Red Blood Cell % [facility] ([facility]) eos # 0.0 10 0.0-0.5 Eos # [facility] ([facility]) mono # 0.6 10 0.0-0.8 [place] # [facility] ([facility]) baso # 0.0 10 0.0-0.2 Baso # [facility] ([facility]) ID Date Data Source [id number] 12/10/2020 05:56:00 PM EST [facility] ([facility]) Name Value Range Interpretation Code Description Data Claribel rce(s) Supporting Document(s) bedside glucose 322 mg/dL 70-105 Above high normal Bedside Gluco se [facility] ([facility]) ID Date Data Source [id number] 12/10/2020 05:56:00 PM EST [facility] ([facility]) Name Value Range Interpretation Code Description Data Claribel rce(s) Supporting Document(s) bedside glucose 322 mg/dL 70-105 Above high normal Bedside Gluco se [facility] ([facility]) ID Date Data Source [id number] 12/10/2020 05:56:00 PM EST [facility] ([facility]) Name Value Range Interpretation Code Description Data Claribel rce(s) Supporting Document(s) bedside glucose 322 mg/dL 70-105 Above high normal Bedside Gluco se [facility] ([facility]) ID Date Data Source [id number] 12/10/2020 05:56:00 PM EST [facility] ([facility]) Name Value Range Interpretation Code Description Data Claribel rce(s) Supporting Document(s) bedside glucose 322 mg/dL 70-105 Above high normal Bedside Gluco se [facility] ([facility]) ID Date Data Source [id number] 12/10/2020 05:56:00 PM EST [facility] ([facility]) Name Value Range Interpretation Code Description Data Claribel rce(s) Supporting Document(s) bedside glucose 322 mg/dL 70-105 Above high normal Bedside Gluco se [facility] ([facility]) ID Date Data Source [id number] 12/10/2020 05:56:00 PM EST [facility] ([facility]) Name Value Range Interpretation Code Description Data Claribel rce(s) Supporting Document(s) bedside glucose 322 mg/dL 70-105 Above high normal Bedside Gluco se [facility] ([facility]) ID Date Data Source [id number] 12/10/2020 05:41:00 PM EST [facility] ([facility]) Name Value Range Interpretation Code Description Data Claribel rce(s) Supporting Document(s) Hemoglobin A1c/Hemoglobin.total in Blood 11.1 % Hemoglobin a1C [place] ([facility]) estimated average glucose 272 mg/dL 60-110 Above high norm al Estimated Average Glucose [place] ([facility]) ID Date Data Source [id number] 12/10/2020 05:41:00 PM EST [facility] ([facility]) Name Value Range Interpretation Code Description Data Claribel rce(s) Supporting Document(s) Hemoglobin A1c/Hemoglobin.total in Blood 11.1 % Hemoglobin a1C [place] ([facility]) estimated average glucose 272 mg/dL 60-110 Above high norm al Estimated Average Glucose [place] ([facility]) ID Date Data Source [id number] 12/10/2020 05:41:00 PM EST [facility] ([facility]) Name Value Range Interpretation Code Description Data Claribel rce(s) Supporting Document(s) Hemoglobin A1c/Hemoglobin.total in Blood 11.1 % Hemoglobin a1C [facility] ([facility]) estimated average glucose 272 mg/dL 60-110 Above high norm al Estimated Average Glucose [facility] ([facility]) ID Date Data Source [id number] 12/10/2020 05:41:00 PM EST [facility] ([facility]) Name Value Range Interpretation Code Description Data Claribel rce(s) Supporting Document(s) Hemoglobin A1c/Hemoglobin.total in Blood 11.1 % Hemoglobin a1C [place] ([facility]) estimated average glucose 272 mg/dL 60-110 Above high norm al Estimated Average Glucose [place] ([facility]) ID Date Data Source [id number] 12/10/2020 05:41:00 PM EST [facility] ([facility]) Name Value Range Interpretation Code Description Data Claribel rce(s) Supporting Document(s) estimated average glucose 272 mg/dL 60-110 Above high norm al Estimated Average Glucose [facility] ([facility]) Hemoglobin A1c/Hemoglobin.total in Blood 11.1 % Hemoglobin a1C [place] ([facility]) ID Date Data Source [id number] 12/10/2020 05:41:00 PM EST [facility] ([facility]) Name Value Range Interpretation Code Description Data Claribel rce(s) Supporting Document(s) estimated average glucose 272 mg/dL 60-110 Above high norm al Estimated Average Glucose [place] ([facility]) Hemoglobin A1c/Hemoglobin.total in Blood 11.1 % Hemoglobin a1C [place] ([facility]) ID Date Data Source [id number] 12/10/2020 05:09:00 PM EST [facility] ([facility]) Name Value Range Interpretation Code Description Data Claribel rce(s) Supporting Document(s) acetone/ketone > 46.00 <2.81 Above high normal Acetone/ketone [facility] ([facility]) ID Date Data Source [id number] 12/10/2020 05:09:00 PM EST [facility] ([facility]) Name Value Range Interpretation Code Description Data Claribel rce(s) Supporting Document(s) acetone/ketone > 46.00 <2.81 Above high normal Acetone/ketone [facility] ([facility]) ID Date Data Source [id number] 12/10/2020 05:09:00 PM EST [facility] ([facility]) Name Value Range Interpretation Code Description Data Claribel rce(s) Supporting Document(s) acetone/ketone > 46.00 <2.81 Above high normal [facility] Data Source [id number] 12/10/2020 05:09:00 PM EST [facility] ([facility]) Name Value Range Interpretation Code Description Data Claribel rce(s) Supporting Document(s) acetone/ketone > 46.00 <2.81 Above high normal Acetone/ketone [facility] ([facility]) ID Date Data Source [id number] 12/10/2020 05:09:00 PM EST [facility] ([facility]) Name Value Range Interpretation Code Description Data Claribel rce(s) Supporting Document(s) acetone/ketone > 46.00 <2.81 Above high normal Acetone/ketone [facility] ([facility]) ID Date Data Source [id number] 12/10/2020 05:09:00 PM EST [facility] ([facility]) Name Value Range Interpretation Code Description Data Claribel rce(s) Supporting Document(s) acetone/ketone > 46.00 <2.81 Above high normal Acetone/ketone [facility] ([facility]) ID Date Data Source [id number] 12/10/2020 05:08:00 PM EST [facility] ([facility]) Name Value Range Interpretation Code Description Data Claribel rce(s) Supporting Document(s) ABG pH (arterial) 7.117 units 7.350-7.450 Below low normal ABG pH (Ar terial) [facility] ([facility]) ABG partial pressure O2 125.1 mmHg 75.0-100.0 Above high normal ABG Partial Pressure O2 [facility] ([facility]) ABG partial pressure CO2 16.7 mmHg 35.0-45.0 Below low normal ABG Partial Pressure CO2 [facility] ([facility]) ABG total CO2 5.8 mEq/L 22.0-29.0 Below low normal ABG Total CO2 AT [facility] ([facility]) ABG base excess -2.0-2.0 Below low normal ABG Base Exces s [facility] ([facility]) ABG HCO3 5.3 mEq/L 22.0-26.0 Below low normal Abg Hco3 [facility] ( [facility]) ABG standard HCO3 9.1 mEq/L 22.0-26.0 Below low normal ABG Standard HCO3 [facility] ([facility]) ABG O2 saturation 98.2 % 95.0-99.0 ABG O2 Saturation [facility] ([facility]) ID Date Data Source [id number] 12/10/2020 05:08:00 PM EST [facility] ([facility]) Name Value Range Interpretation Code Description Data Claribel rce(s) Supporting Document(s) ABG pH (arterial) 7.117 units 7.350-7.450 Below low normal ABG pH (Ar terial) [facility] ([facility]) ABG partial pressure CO2 16.7 mmHg 35.0-45.0 Below low normal ABG Partial Pressure CO2 [place] ([facility]) ABG total CO2 5.8 mEq/L 22.0-29.0 Below low normal ABG Total CO2 AT [facility] ([facility]) ABG partial pressure O2 125.1 mmHg 75.0-100.0 Above high normal ABG Partial Pressure O2 [facility] ([facility]) ABG standard HCO3 9.1 mEq/L 22.0-26.0 Below low normal ABG Standard HCO3 [facility] ([facility]) ABG HCO3 5.3 mEq/L 22.0-26.0 Below low normal Abg Hco3 [facility] ( [facility]) ABG base excess -2.0-2.0 Below low normal ABG Base Exces s [facility] ([facility]) ABG O2 saturation 98.2 % 95.0-99.0 ABG O2 Saturation [facility] ([facility]) ID Date Data Source [id number] 12/10/2020 05:08:00 PM EST [facility] ([facility]) Name Value Range Interpretation Code Description Data Claribel rce(s) Supporting Document(s) ABG pH (arterial) 7.117 units 7.350-7.450 Below low normal ABG pH (Ar terial) [place] ([facility]) ABG partial pressure CO2 16.7 mmHg 35.0-45.0 Below low normal ABG Partial Pressure CO2 [facility] ([facility]) ABG partial pressure O2 125.1 mmHg 75.0-100.0 Above high normal ABG Partial Pressure O2 [place] ([facility]) ABG total CO2 5.8 mEq/L 22.0-29.0 Below low normal ABG Total CO2 AT [facility] ([facility]) ABG HCO3 5.3 mEq/L 22.0-26.0 Below low normal Abg Hco3 [place] ( [facility]) ABG base excess -2.0-2.0 Below low normal ABG Base Exces s [place] ([facility]) ABG standard HCO3 9.1 mEq/L 22.0-26.0 Below low normal ABG Standard HCO3 [place] ([facility]) ABG O2 saturation 98.2 % 95.0-99.0 ABG O2 Saturation [place] ([facility]) ID Date Data Source [id number] 12/10/2020 05:08:00 PM EST [place] ([facility]) Name Value Range Interpretation Code Description Data Claribel rce(s) Supporting Document(s) ABG partial pressure CO2 16.7 mmHg 35.0-45.0 Below low normal ABG Partial Pressure CO2 [place] ([facility]) ABG pH (arterial) 7.117 units 7.350-7.450 Below low normal ABG pH (Ar terial) [place] ([facility]) ABG partial pressure O2 125.1 mmHg 75.0-100.0 Above high normal ABG Partial Pressure O2 [place] ([facility]) ABG total CO2 5.8 mEq/L 22.0-29.0 Below low normal ABG Total CO2 AT [facility] ([facility]) ABG standard HCO3 9.1 mEq/L 22.0-26.0 Below low normal ABG Standard HCO3 [place] ([facility]) ABG base excess -2.0-2.0 Below low normal ABG Base Exces s [facility] ([facility]) ABG HCO3 5.3 mEq/L 22.0-26.0 Below low normal Abg Hco3 [facility] ( [facility]) ABG O2 saturation 98.2 % 95.0-99.0 ABG O2 Saturation [facility] ([facility]) ID Date Data Source [id number] 12/10/2020 05:08:00 PM EST [facility] ([facility]) Name Value Range Interpretation Code Description Data Claribel rce(s) Supporting Document(s) ABG partial pressure O2 125.1 mmHg 75.0-100.0 Above high normal ABG Partial Pressure O2 [facility] ([facility]) ABG pH (arterial) 7.117 units 7.350-7.450 Below low normal ABG pH (Ar terial) [facility] ([facility]) ABG partial pressure CO2 16.7 mmHg 35.0-45.0 Below low normal ABG Partial Pressure CO2 [facility] ([facility]) ABG HCO3 5.3 mEq/L 22.0-26.0 Below low normal Abg Hco3 [facility] ( [facility]) ABG total CO2 5.8 mEq/L 22.0-29.0 Below low normal ABG Total CO2 AT [facility] ([facility]) ABG base excess -2.0-2.0 Below low normal ABG Base Exces s [facility] ([facility]) ABG standard HCO3 9.1 mEq/L 22.0-26.0 Below low normal ABG Standard HCO3 [facility] ([facility]) ABG O2 saturation 98.2 % 95.0-99.0 ABG O2 Saturation [facility] ([facility]) ID Date Data Source [id number] 12/10/2020 05:08:00 PM EST [facility] ([facility]) Name Value Range Interpretation Code Description Data Claribel rce(s) Supporting Document(s) ABG partial pressure CO2 16.7 mmHg 35.0-45.0 Below low normal ABG Partial Pressure CO2 [facility] ([facility]) ABG partial pressure O2 125.1 mmHg 75.0-100.0 Above high normal ABG Partial Pressure O2 [facility] ([facility]) ABG pH (arterial) 7.117 units 7.350-7.450 Below low normal ABG pH (Ar terial) [facility] ([facility]) ABG HCO3 5.3 mEq/L 22.0-26.0 Below low normal Abg Hco3 [facility] ( [facility]) ABG total CO2 5.8 mEq/L 22.0-29.0 Below low normal ABG Total CO2 AT [place] ([facility]) ABG base excess -2.0-2.0 Below low normal ABG Base Exces s [facility] ([facility]) ABG standard HCO3 9.1 mEq/L 22.0-26.0 Below low normal ABG Standard HCO3 [facility] ([facility]) ABG O2 saturation 98.2 % 95.0-99.0 ABG O2 Saturation [place] ([facility]) ID Date Data Source [id number] 12/10/2020 02:24:00 PM EST [facility] ([facility]) Name Value Range Interpretation Code Description Data Claribel rce(s) Supporting Document(s) istat B-HCG < 5.0 Istat B-HCG [facility] ([facility]) ID Date Data Source [id number] 12/10/2020 02:24:00 PM EST [facility] ([facility]) Name Value Range Interpretation Code Description Data Claribel rce(s) Supporting Document(s) istat B-HCG < 5.0 Istat B-HCG [facility] ([facility]) ID Date Data Source [id number] 12/10/2020 02:24:00 PM EST [facility] ([facility]) Name Value Range Interpretation Code Description Data Claribel rce(s) Supporting Document(s) istat B-HCG < 5.0 Istat B-HCG [facility] ([facility]) ID Date Data Source [id number] 12/10/2020 02:24:00 PM EST [facility] ([facility]) Name Value Range Interpretation Code Description Data Claribel rce(s) Supporting Document(s) istat B-HCG < 5.0 Istat B-HCG [facility] ([facility]) ID Date Data Source [id number] 12/10/2020 02:24:00 PM EST [facility] ([facility]) Name Value Range Interpretation Code Description Data Claribel rce(s) Supporting Document(s) istat B-HCG < 5.0 Istat B-HCG [facility] ([facility]) ID Date Data Source [id number] 12/10/2020 02:24:00 PM EST [facility] ([facility]) Name Value Range Interpretation Code Description Data Claribel rce(s) Supporting Document(s) istat B-HCG < 5.0 Istat B-HCG [facility] ([facility]) ID Date Data Source [id number] 12/10/2020 02:21:00 PM EST [facility] ([facility]) Name Value Range Interpretation Code Description Data Claribel rce(s) Supporting Document(s) istat HCT 46.0 % 38.0-51.0 Istat HCT [facility] ([facility]) istat sodium 136 mEq/L 136-145 Istat Sodium [facility] ([facility]) istat glucose 290 mg/dL 70-105 Above high normal Istat Glucose A [facility] ([facility]) istat potassium 4.8 mEq/L 3.5-5.1 Istat Potassium [facility] ([facility]) istat Ca++ 5.6 mg/dL 4.5-5.3 Above high normal Istat Ca++ [facility] ([facility]) istat CO2 12.0 mm/L 23.0-27.0 Below low normal Istat CO2 [facility] ( [facility]) istat chloride 109 mEq/L 98-109 Istat Chloride [facility] ([facility]) istat BUN 25 mg/dL 8-26 Istat BUN [facility] ([facility]) istat creatinine 1.1 mg/dL 0.6-1.3 Istat Creatinine AT [facility]) ID Date Data Source [id number] 12/10/2020 02:21:00 PM EST [facility] ([facility]) Name Value Range Interpretation Code Description Data Claribel rce(s) Supporting Document(s) istat HCT 46.0 % 38.0-51.0 Istat HCT [facility] ([facility]) istat glucose 290 mg/dL 70-105 Above high normal Istat Glucose A [facility] ([facility]) istat sodium 136 mEq/L 136-145 Istat Sodium [facility] ([facility]) istat chloride 109 mEq/L 98-109 Istat Chloride [facility] ([facility]) istat potassium 4.8 mEq/L 3.5-5.1 Istat Potassium [facility] ([facility]) istat Ca++ 5.6 mg/dL 4.5-5.3 Above high normal Istat Ca++ [facility] ([facility]) istat BUN 25 mg/dL 8-26 Istat BUN [facility] ([facility]) istat CO2 12.0 mm/L 23.0-27.0 Below low normal Istat CO2 [facility] ( [facility]) istat creatinine 1.1 mg/dL 0.6-1.3 Istat Creatinine AT [facility]) ID Date Data Source [id number] 12/10/2020 02:21:00 PM EST [facility] ([facility]) Name Value Range Interpretation Code Description Data Claribel rce(s) Supporting Document(s) istat HCT 46.0 % 38.0-51.0 Istat HCT [facility] ([facility]) istat glucose 290 mg/dL 70-105 Above high normal Istat Glucose A [facility] ([facility]) istat sodium 136 mEq/L 136-145 Istat Sodium [facility] (No [facility]) istat potassium 4.8 mEq/L 3.5-5.1 Istat Potassium [facility] ([facility]) istat Ca++ 5.6 mg/dL 4.5-5.3 Above high normal Istat Ca++ [facility] ([facility]) istat CO2 12.0 mm/L 23.0-27.0 Below low normal Istat CO2 [facility] ( [facility]) istat chloride 109 mEq/L 98-109 Istat Chloride [facility] ([facility]) istat BUN 25 mg/dL 8-26 Istat BUN [facility] ([facility]) istat creatinine 1.1 mg/dL 0.6-1.3 Istat Creatinine AT [place] ([facility]) ID Date Data Source [id number] 12/10/2020 02:21:00 PM EST [facility] ([facility]) Name Value Range Interpretation Code Description Data Claribel rce(s) Supporting Document(s) istat HCT 46.0 % 38.0-51.0 Istat HCT [facility] ([facility]) istat glucose 290 mg/dL 70-105 Above high normal Istat Glucose A [facility] ([facility]) istat Ca++ 5.6 mg/dL 4.5-5.3 Above high normal Istat Ca++ [facility] ([facility]) istat sodium 136 mEq/L 136-145 Istat Sodium [facility] ([facility]) istat potassium 4.8 mEq/L 3.5-5.1 Istat Potassium [facility] ([facility]) istat CO2 12.0 mm/L 23.0-27.0 Below low normal Istat CO2 [facility] ( [facility]) istat chloride 109 mEq/L 98-109 Istat Chloride [facility] ([facility]) istat creatinine 1.1 mg/dL 0.6-1.3 Istat Creatinine AT [facility] ([facility]) istat BUN 25 mg/dL 8-26 Istat BUN [facility] ([facility]) ID Date Data Source [id number] 12/10/2020 02:21:00 PM EST [facility] ([facility]) Name Value Range Interpretation Code Description Data Claribel rce(s) Supporting Document(s) istat glucose 290 mg/dL 70-105 Above high normal Istat Glucose A THENA ([facility]) istat HCT 46.0 % 38.0-51.0 Istat HCT [facility] ([facility]) istat sodium 136 mEq/L 136-145 Istat Sodium [facility] ([facility]) istat potassium 4.8 mEq/L 3.5-5.1 Istat Potassium ATHE NA ([facility]) istat CO2 12.0 mm/L 23.0-27.0 Below low normal Istat CO2 [facility] ( [facility]) istat chloride 109 mEq/L 98-109 Istat Chloride [facility] ([facility]) istat Ca++ 5.6 mg/dL 4.5-5.3 Above high normal Istat Ca++ [facility] ([facility]) istat BUN 25 mg/dL 8-26 Istat BUN [facility] ([facility]) istat creatinine 1.1 mg/dL 0.6-1.3 Istat Creatinine AT [facility]) ID Date Data Source [id number] 12/10/2020 02:21:00 PM EST [facility] ([facility]) Name Value Range Interpretation Code Description Data Claribel rce(s) Supporting Document(s) istat glucose 290 mg/dL 70-105 Above high normal Istat Glucose A THE[facility] ([facility]) istat HCT 46.0 % 38.0-51.0 Istat HCT [facility] ([facility]) istat potassium 4.8 mEq/L 3.5-5.1 Istat Potassium ATHE NA ([facility]) istat sodium 136 mEq/L 136-145 Istat Sodium [facility] ([facility]) istat CO2 12.0 mm/L 23.0-27.0 Below low normal Istat CO2 [facility] ( [facility]) istat chloride 109 mEq/L 98-109 [place]stat Chloride [place] ([facility]) istat Ca++ 5.6 mg/dL 4.5-5.3 Above high normal Istat Ca++ [place] ([facility]) istat creatinine 1.1 mg/dL 0.6-1.3 Istat Creatinine AT [facility]) istat BUN 25 mg/dL 8-26 Istat BUN [place] ([facility]) ID Date Data Source [id number] 12/10/2020 01:34:00 PM EST [facility]) Name Value Range Interpretation Code Description Data Claribel rce(s) Supporting Document(s) ID Date Data Source [id number] 12/10/2020 01:34:00 PM EST [place] ([facility]) Name Value Range Interpretation Code Description Data Claribel rce(s) Supporting Document(s) appearance, urine rfx hazy clear Appearance, Ur ine Rfx [place] ([facility]) pH,urine rfx 5.0 units 5.0-9.0 pH,urine Rfx [place] ([facility]) color, urine rfx yellow yellow Color, Urine Rfx AT [facility]) protein, urine auto rfx 3+ negative Above high normal Prote in, Urine Auto Rfx [place] ([facility]) specific gravity ur auto rfx 1.002-1.035 Specif ic [place] Ur Auto Rfx [facility] ([facility]) glucose, urine (UA) auto rfx 3+ negative Above high n ormal Glucose, Urine (UA) Auto Rfx [facility] ([facility]) ketone, urine auto rfx 2+ negative Above high normal Ketone , Urine Auto Rfx [place] ([facility]) urobilinogen, urine auto rfx 0.2 mg/dL 0.0-2.0 Urobili nogen, Urine Auto Rfx [facility] ([facility]) bilirubin, urine auto rfx negative negative Bilirubin, Urine Auto Rfx [place] ([facility]) leukocyte esterase ur auto rfx 2+ negative Above high normal Leukocyte Esterase Ur Auto Rfx [place] ([facility]) nitrite, urine auto rfx negative negative Nitrite, Uri ne Auto Rfx [place] ([facility]) WBC, urine auto rfx 16 /hpf 0-3 Above high normal WBC, Urin e Auto Rfx [facility] ([facility]) blood, urine blood rfx 2+ negative Above high normal Blood, Urine Blood Rfx [place] ([facility]) bacteria, urine auto rfx 1+ negative Above high normal Bact eria, Urine Auto Rfx [place] ([facility]) RBC, urine auto rfx 7 /hpf 0-3 Above high normal RBC, Urin e Auto Rfx [place] ([facility]) mucus, urine rfx small negative Mucus, Urine Rfx AT [facility] ([facility]) squam epithelial cell ur aurfx 1 /hpf 0-6 Squam Epithelial Cell Ur Aurfx [facility] ([facility]) hyaline cast, urine auto rfx 0 /lpf 0-1 Hyaline Cast, Urine Auto Rfx [place] ([facility]) ID Date Data Source [id number] 12/10/2020 01:34:00 PM EST [place] ([facility]) Name Value Range Interpretation Code Description Data Claribel rce(s) Supporting Document(s) ID Date Data Source [id number] 12/10/2020 01:34:00 PM EST [facility] ([facility]) Name Value Range Interpretation Code Description Data Claribel rce(s) Supporting Document(s) appearance, urine rfx hazy clear Appearance, Ur ine Rfx [facility] ([facility]) color, urine rfx yellow yellow Color, Urine Rfx AT [place] ([facility]) specific gravity ur auto rfx 1.002-1.035 Specif ic [place] Ur Auto Rfx [facility] ([facility]) pH,urine rfx 5.0 units 5.0-9.0 pH,urine Rfx [facility] ([facility]) protein, urine auto rfx 3+ negative Above high normal Prote in, Urine Auto Rfx [place] ([facility]) glucose, urine (UA) auto rfx 3+ negative Above high n ormal Glucose, Urine (UA) Auto Rfx [place] ([facility]) ketone, urine auto rfx 2+ negative Above high normal Ketone , Urine Auto Rfx [place] ([facility]) nitrite, urine auto rfx negative negative Nitrite, Uri ne Auto Rfx [place] ([facility]) bilirubin, urine auto rfx negative negative Bilirubin, Urine Auto Rfx [place] ([facility]) urobilinogen, urine auto rfx 0.2 mg/dL 0.0-2.0 Urobili nogen, Urine Auto Rfx [place] ([facility]) blood, urine blood rfx 2+ negative Above high normal Blood, Urine Blood Rfx [place] ([facility]) leukocyte esterase ur auto rfx 2+ negative Above high normal Leukocyte Esterase Ur Auto Rfx [facility] ([facility]) WBC, urine auto rfx 16 /hpf 0-3 Above high normal WBC, Urin e Auto Rfx [facility] ([facility]) RBC, urine auto rfx 7 /hpf 0-3 Above high normal RBC, Urin e Auto Rfx [place] ([facility]) bacteria, urine auto rfx 1+ negative Above high normal Bact eria, Urine Auto Rfx [place] ([facility]) squam epithelial cell ur aurfx 1 /hpf 0-6 Squam Epithelial Cell Ur Aurfx [facility] ([facility]) mucus, urine rfx small negative Mucus, Urine Rfx AT [facility] ([facility]) hyaline cast, urine auto rfx 0 /lpf 0-1 Hyaline Cast, Urine Auto Rfx [place] ([facility]) ID Date Data Source [id number] 12/10/2020 01:34:00 PM EST [place] ([facility]) Name Value Range Interpretation Code Description Data Claribel rce(s) Supporting Document(s) ID Date Data Source [id number] 12/10/2020 01:34:00 PM EST [facility] ([facility]) Name Value Range Interpretation Code Description Data Claribel rce(s) Supporting Document(s) appearance, urine rfx hazy clear Appearance, Ur ine Rfx [place] ([facility]) color, urine rfx yellow yellow Color, Urine Rfx AT [facility] ([facility]) pH,urine rfx 5.0 units 5.0-9.0 pH,urine Rfx [facility] (No [facility]) glucose, urine (UA) auto rfx 3+ negative Above high n ormal Glucose, Urine (UA) Auto Rfx [place] ([facility]) specific gravity ur auto rfx 1.002-1.035 Specif ic [place] Ur Auto Rfx [place] ([facility]) protein, urine auto rfx 3+ negative Above high normal Prote in, Urine Auto Rfx [place] ([facility]) ketone, urine auto rfx 2+ negative Above high normal Ketone , Urine Auto Rfx [place] ([facility]) urobilinogen, urine auto rfx 0.2 mg/dL 0.0-2.0 Urobili nogen, Urine Auto Rfx [place] ([facility]) bilirubin, urine auto rfx negative negative Bilirubin, Urine Auto Rfx [place] ([facility]) nitrite, urine auto rfx negative negative Nitrite, Uri ne Auto Rfx [place] ([facility]) leukocyte esterase ur auto rfx 2+ negative Above high normal Leukocyte Esterase Ur Auto Rfx [place] ([facility]) blood, urine blood rfx 2+ negative Above high normal Blood, Urine Blood Rfx [place] ([facility]) RBC, urine auto rfx 7 /hpf 0-3 Above high normal RBC, Urin e Auto Rfx [place] ([facility]) WBC, urine auto rfx 16 /hpf 0-3 Above high normal WBC, Urin e Auto Rfx [place] ([facility]) bacteria, urine auto rfx 1+ negative Above high normal Bact eria, Urine Auto Rfx [place] ([facility]) squam epithelial cell ur aurfx 1 /hpf 0-6 Squam Epithelial Cell Ur Aurfx [place] ([facility]) mucus, urine rfx small negative Mucus, Urine Rfx AT [facility] ([facility]) hyaline cast, urine auto rfx 0 /lpf 0-1 Hyaline Cast, Urine Auto Rfx [place] ([facility]) ID Date Data Source [id number] 12/10/2020 01:34:00 PM EST [place] ([facility]) Name Value Range Interpretation Code Description Data Claribel rce(s) Supporting Document(s) ID Date Data Source [id number] 12/10/2020 01:34:00 PM EST [place] ([facility]) Name Value Range Interpretation Code Description Data Claribel rce(s) Supporting Document(s) appearance, urine rfx hazy clear Appearance, Ur ine Rfx [place] ([facility]) pH,urine rfx 5.0 units 5.0-9.0 pH,urine Rfx [facility] ([facility]) color, urine rfx yellow yellow Color, Urine Rfx AT [facility] ([facility]) glucose, urine (UA) auto rfx 3+ negative Above high n ormal Glucose, Urine (UA) Auto Rfx [place] ([facility]) protein, urine auto rfx 3+ negative Above high normal Prote in, Urine Auto Rfx [place] ([facility]) specific gravity ur auto rfx 1.002-1.035 Specif ic [place] Ur Auto Rfx [place] ([facility]) urobilinogen, urine auto rfx 0.2 mg/dL 0.0-2.0 Urobili nogen, Urine Auto Rfx [facility] ([facility]) ketone, urine auto rfx 2+ negative Above high normal Ketone , Urine Auto Rfx [facility] ([facility]) nitrite, urine auto rfx negative negative Nitrite, Uri ne Auto Rfx [facility] ([facility]) bilirubin, urine auto rfx negative negative Bilirubin, Urine Auto Rfx [facility] ([facility]) leukocyte esterase ur auto rfx 2+ negative Above high normal Leukocyte Esterase Ur Auto Rfx [facility] ([facility]) RBC, urine auto rfx 7 /hpf 0-3 Above high normal RBC, Urin e Auto Rfx [facility] ([facility]) WBC, urine auto rfx 16 /hpf 0-3 Above high normal WBC, Urin e Auto Rfx [place] ([facility]) blood, urine blood rfx 2+ negative Above high normal Blood, Urine Blood Rfx [facility] ([facility]) bacteria, urine auto rfx 1+ negative Above high normal Bact eria, Urine Auto Rfx [facility] ([facility]) squam epithelial cell ur aurfx 1 /hpf 0-6 Squam Epithelial Cell Ur Aurfx [facility] ([facility]) hyaline cast, urine auto rfx 0 /lpf 0-1 Hyaline Cast, Urine Auto Rfx [facility] ([facility]) mucus, urine rfx small negative Mucus, Urine Rfx AT [place] ([facility]) ID Date Data Source [id number] 12/10/2020 01:34:00 PM EST [place] ([facility]) Name Value Range Interpretation Code Description Data Claribel rce(s) Supporting Document(s) ID Date Data Source [id number] 12/10/2020 01:34:00 PM EST [place] ([facility]) Name Value Range Interpretation Code Description Data Claribel rce(s) Supporting Document(s) appearance, urine rfx hazy clear Appearance, Ur ine Rfx [facility] ([facility]) color, urine rfx yellow yellow Color, Urine Rfx AT [facility] ([facility]) specific gravity ur auto rfx 1.002-1.035 Specif ic [place] Ur Auto Rfx [facility] ([facility]) pH,urine rfx 5.0 units 5.0-9.0 pH,urine Rfx [facility] ([facility]) protein, urine auto rfx 3+ negative Above high normal Prote in, Urine Auto Rfx [facility] ([facility]) glucose, urine (UA) auto rfx 3+ negative Above high n ormal Glucose, Urine (UA) Auto Rfx [place] ([facility]) urobilinogen, urine auto rfx 0.2 mg/dL 0.0-2.0 Urobili nogen, Urine Auto Rfx [place] ([facility]) ketone, urine auto rfx 2+ negative Above high normal Ketone , Urine Auto Rfx [place] ([facility]) leukocyte esterase ur auto rfx 2+ negative Above high normal Leukocyte Esterase Ur Auto Rfx [facility] ([facility]) bilirubin, urine auto rfx negative negative Bilirubin, Urine Auto Rfx [place] ([facility]) nitrite, urine auto rfx negative negative Nitrite, Uri ne Auto Rfx [place] ([facility]) WBC, urine auto rfx 16 /hpf 0-3 Above high normal WBC, Urin e Auto Rfx [place] ([facility]) blood, urine blood rfx 2+ negative Above high normal Blood, Urine Blood Rfx [place] ([facility]) bacteria, urine auto rfx 1+ negative Above high normal Bact eria, Urine Auto Rfx [facility] ([facility]) RBC, urine auto rfx 7 /hpf 0-3 Above high normal RBC, Urin e Auto Rfx [place] ([facility]) squam epithelial cell ur aurfx 1 /hpf 0-6 Squam Epithelial Cell Ur Aurfx [place] ([facility]) mucus, urine rfx small negative Mucus, Urine Rfx AT [facility] ([facility]) hyaline cast, urine auto rfx 0 /lpf 0-1 Hyaline Cast, Urine Auto Rfx [place] ([facility]) ID Date Data Source [id number] 12/10/2020 01:34:00 PM [place] ([facility]) Name Value Range Interpretation Code Description Data Claribel rce(s) Supporting Document(s) ID Date Data Source [id number] 12/10/2020 01:34:00 PM [place] ([facility]) Name Value Range Interpretation Code Description Data Claribel rce(s) Supporting Document(s) appearance, urine rfx hazy clear Appearance, Ur ine Rfx [place] ([facility]) color, urine rfx yellow yellow Color, Urine Rfx AT [facility] ([facility]) protein, urine auto rfx 3+ negative Above high normal Prote in, Urine Auto Rfx [place] ([facility]) specific gravity ur auto rfx 1.002-1.035 Specif ic [place] Ur Auto Rfx [place] ([facility]) pH,urine rfx 5.0 units 5.0-9.0 pH,urine Rfx [facility] (No [facility]) glucose, urine (UA) auto rfx 3+ negative Above high n ormal Glucose, Urine (UA) Auto Rfx [place] ([facility]) ketone, urine auto rfx 2+ negative Above high normal Ketone , Urine Auto Rfx [place] ([facility]) nitrite, urine auto rfx negative negative Nitrite, Uri ne Auto Rfx [place] ([facility]) urobilinogen, urine auto rfx 0.2 mg/dL 0.0-2.0 Urobili nogen, Urine Auto Rfx [place] ([facility]) bilirubin, urine auto rfx negative negative Bilirubin, Urine Auto Rfx [place] ([facility]) leukocyte esterase ur auto rfx 2+ negative Above high normal Leukocyte Esterase Ur Auto Rfx [place] ([facility]) blood, urine blood rfx 2+ negative Above high normal Blood, Urine Blood Rfx [place] ([facility]) WBC, urine auto rfx 16 /hpf 0-3 Above high normal WBC, Urin e Auto Rfx [facility] ([facility]) RBC, urine auto rfx 7 /hpf 0-3 Above high normal RBC, Urin e Auto Rfx [facility] ([facility]) bacteria, urine auto rfx 1+ negative Above high normal Bact eria, Urine Auto Rfx [place] ([facility]) hyaline cast, urine auto rfx 0 /lpf 0-1 Hyaline Cast, Urine Auto Rfx [facility] ([facility]) mucus, urine rfx small negative Mucus, Urine Rfx AT [facility] ([facility]) squam epithelial cell ur aurfx 1 /hpf 0-6 Squam Epithelial Cell Ur Aurfx [place] ([facility]) ID Date Data Source [id number] 12/10/2020 01:04:00 PM EST [facility] ([facility]) Name Value Range Interpretation Code Description Data Claribel rce(s) Supporting Document(s) bedside glucose 256 mg/dL 70-105 Above high normal Bedside Gluco se [place] ([facility]) ID Date Data Source [id number] 12/10/2020 01:04:00 PM EST [place] ([facility]) Name Value Range Interpretation Code Description Data Claribel rce(s) Supporting Document(s) bedside glucose 256 mg/dL 70-105 Above high normal Bedside Gluco se [place] ([facility]) ID Date Data Source [id number] 12/10/2020 01:04:00 PM EST [facility] ([facility]) Name Value Range Interpretation Code Description Data Claribel rce(s) Supporting Document(s) bedside glucose 256 mg/dL 70-105 Above high normal Bedside Gluco se [place] ([facility]) ID Date Data Source [id number] 12/10/2020 01:04:00 PM EST [place] ([facility]) Name Value Range Interpretation Code Description Data Claribel rce(s) Supporting Document(s) bedside glucose 256 mg/dL 70-105 Above high normal Bedside Gluco se [facility] ([facility]) ID Date Data Source [id number] 12/10/2020 01:04:00 PM EST [place] ([facility]) Name Value Range Interpretation Code Description Data Claribel rce(s) Supporting Document(s) bedside glucose 256 mg/dL 70-105 Above high normal Bedside Gluco se [facility] ([facility]) ID Date Data Source [id number] 10/01/2020 12:00:00 AM EST [facility] Name Value Range Interpretation Code Description Data Claribel rce(s) Supporting Document(s) SARS coronavirus 2 RNA [Presence] in Res piratory specimen by ANDREE with probe detection [facility] This lab was ordered by Nell [facility] and reported by [facility]. ID Date Data Source [id number] 08/19/2020 10:29:50 AM EDT [facility] Name Value Range Interpretation Code Description Data Claribel rce(s) Supporting Document(s) Progress Note [facility] [id number] [file] [id number] [file] [id number]= Procedure Social History Code Duration Value Status Description Data Source(s ) Smoking 03/26/2021 12:00:00 AM EDT Patient has never smoked co mpleted Patient has never smoked [facility] ([facility]) Alcohol intake 02/20/2021 12:00:00 AM EDT Current non-d clyde of alcohol (finding) completed Current non-drinker of alcohol (finding) [facility] Tobacco use and exposure 02/20/2021 12:00:00 AM EDT Never used co mpleted Never used [facility] Smoking 02/20/2021 12:00:00 AM EDT Never smoker completed Never s scker [facility] Alcohol intake 08/19/2020 12:00:00 AM EDT Current non-d clyde of alcohol (finding) completed Current non-drinker of alcohol (finding) [facility] Vital Signs ID Date Data Source [id number] Name Value Range Interpretation Code Description Data Source(s) Diastolic blood pressure 73 mm[Hg] 73 mm[Hg] [facility]) Body height 64 [in_i] 64 [in_i] [facility] ([facility]) Body mass index (BMI) [Ratio] 26 kg/m2 26 kg/ m2 [place] ([facility]) Systolic blood pressure 105 mm[Hg] 105 mm[Hg] [facility] ([facility]) Body weight 2420 [oz_av] 2420 [oz_av] [facility] ([facility]) Body height 64 [in_i] 64 [in_i] [facility] ([facility]) Body height 64 [in_i] 64 [in_i] [facility] ([facility]) Diastolic blood pressure 81 mm[Hg] 81 mm[Hg] [facility] ([facility]) Body height 64 [in_i] 64 [facility]] [facility] Body mass index (BMI) [Ratio] 25.2 kg/m2 25.2 k g/m2 [facility] ([facility]) Systolic blood pressure 112 mm[Hg] 112 mm[Hg] A [facility] ([facility]) Body weight 2352 [oz_av] 2352 [oz_av] [facility] ([facility]) Diastolic blood pressure 81 mm[Hg] 81 mm[Hg] [facility] ([facility]) Body height 64 [in_i] 64 [in_i] [facility] ([facility]) Body mass index (BMI) [Ratio] 25.2 kg/m2 25.2 k g/m2 [facility] ([facility]) Systolic blood pressure 112 mm[Hg] 112 mm[Hg] A [facility] ([facility]) Body weight 2352 [oz_av] 2352 [oz_av] [facility] ([facility]) Diastolic blood pressure 81 mm[Hg] 81 mm[Hg] [facility] ([facility]) Body height 64 [in_i] 64 [in_i] [facility] ([facility]) Body mass index (BMI) [Ratio] 25.2 kg/m2 25.2 k g/m2 [facility] ([facility]) Systolic blood pressure 112 mm[Hg] 112 mm[Hg] A [facility] ([facility]) Body weight 2352 [oz_av] 2352 [oz_av] [facility] ([facility]) Systolic blood pressure 138 mm[Hg] 138 mm[Hg] M [facility] ([facility]) Diastolic blood pressure 91 mm[Hg] 91 mm[Hg] [facility] ([facility]) Respiratory rate 18 /min 18 /min [facility] ( [facility]) Body weight 146.00 [lb_av] 146.00 [lb_av] [facility] T ([facility]) Body height 64 [in_i] 64 [in_i] MEDENT ([facility], [facility]) 5'4" Body temperature 98.2 [degF] 98.2 [degF] MEDENT ([facility], [facility]) Body mass index (BMI) [Ratio] 25.1 kg/m2 25.1 k g/m2 MEDENT ([facility], [facility]) Heart rate 103 /min 103 /min MEDENT ([facility]) Oxygen saturation in Arterial blood by Pulse oximetry 97 % 97 % [facility], [facility]) Diastolic blood pressure 92 mm[Hg] 92 mm[Hg] CYNDI ([facility]) Body mass index (BMI) [Ratio] 26.1 kg/m2 26.1 k g/m2 CYNDI ([facility]) Body height 64 [in_i] 64 [in_i] CYNDI ([facility]) Systolic blood pressure 134 mm[Hg] 134 mm[Hg] A THENA ([facility]) Body weight 2432 [oz_av] 2432 [oz_av] CYNDI ([facility]) Diastolic blood pressure 92 mm[Hg] 92 mm[Hg] CYNDI ([facility]) Body weight 2432 [oz_av] 2432 [oz_av] CYNDI ([facility]) Body height 64 [in_i] 64 [in_i] CYNDI ([facility]) Body mass index (BMI) [Ratio] 26.1 kg/m2 26.1 k g/m2 CYNDI ([facility]) Systolic blood pressure 134 mm[Hg] 134 mm[Hg] [facility] Diastolic blood pressure 92 mm[Hg] 92 mm[Hg] CYNDI ([facility]) Body height 64 [in_i] 64 [in_i] CYNDI ([facility]) Body mass index (BMI) [Ratio] 26.1 kg/m2 26.1 k g/m2 CYNDI ([facility]) Systolic blood pressure 134 mm[Hg] 134 mm[Hg] A THENA ([facility]) Body weight 2432 [oz_av] 2432 [oz_av] CYNDI ([facility]) Diastolic blood pressure 92 mm[Hg] 92 mm[Hg] CYNDI ([facility]) Body height 64 [in_i] 64 [in_i] CYNDI ([facility]) Body mass index (BMI) [Ratio] 26.1 kg/m2 26.1 k g/m2 CYNDI ([facility]) Systolic blood pressure 134 mm[Hg] 134 mm[Hg] [facility] Body weight 2432 [oz_av] 2432 [oz_av] CYNDI ([facility]) Diastolic blood pressure 92 mm[Hg] 92 mm[Hg] CYNDI ([facility]) Body height 64 [in_i] 64 [in_i] CYNDI ([facility]) Body mass index (BMI) [Ratio] 26.1 kg/m2 26.1 k g/m2 CYNDI ([facility]) Systolic blood pressure 134 mm[Hg] 134 mm[Hg] A THENA ([facility]) Body weight 2432 [oz_av] 2432 [oz_av] CYNDI ([facility]) Diastolic blood pressure 92 mm[Hg] 92 mm[Hg] CYNDI ([facility]) Body height 64 [in_i] 64 [in_i] CYNDI ([facility]) Body mass index (BMI) [Ratio] 26.1 kg/m2 26.1 k g/m2 CYNDI ([facility]) Systolic blood pressure 134 mm[Hg] 134 mm[Hg] A THENA ([facility]) Body weight 2432 [oz_av] 2432 [oz_av] CYNDI ([facility]) Diastolic blood pressure 66 mm[Hg] 66 mm[Hg] CYNDI ([facility]) Body height 64 [in_i] 64 [in_i] CYNDI ([facility]) Body mass index (BMI) [Ratio] 25.2 kg/m2 25.2 k g/m2 CYNDI ([facility]) Systolic blood pressure 105 mm[Hg] 105 mm[Hg] A THENA ([facility]) Body weight 2352 [oz_av] 2352 [oz_av] CYNDI ([facility]) Diastolic blood pressure 66 mm[Hg] 66 mm[Hg] CYNDI ([facility]) Diastolic blood pressure 66 mm[Hg] 66 mm[Hg] CYNDI ([facility]) Body height 64 [in_i] 64 [in_i] CYNDI ([facility]) Body mass index (BMI) [Ratio] 25.2 kg/m2 25.2 k g/m2 CYND[facility] ([facility]) Systolic blood pressure 105 mm[Hg] 105 mm[Hg] [facility] Body weight 2352 [oz_av] 2352 [oz_av] CYNDI ([facility]) Body height 64 [in_i] 64 [in_i] CYNDI ([facility]) Body mass index (BMI) [Ratio] 25.2 kg/m2 25.2 k g/m2 CYNDI ([facility]) Systolic blood pressure 105 mm[Hg] 105 mm[Hg] A THENA ([facility]) Body weight 2352 [oz_av] 2352 [oz_av] CYNDI ([facility]) Diastolic blood pressure 66 mm[Hg] 66 mm[Hg] CYNDI ([facility]) Body height 64 [in_i] 64 [in_i] CYNDI ([facility]) Body mass index (BMI) [Ratio] 25.2 kg/m2 25.2 k g/m2 CY[facility] ([facility]) Systolic blood pressure 105 mm[Hg] 105 mm[Hg] [facility]) Body weight 2352 [oz_av] 2352 [oz_av] CYNDI ([facility]) Diastolic blood pressure 66 mm[Hg] 66 mm[Hg] CYNDI ([facility]) Body height 64 [in_i] 64 [in_i] CYNDI ([facility]) Body mass index (BMI) [Ratio] 25.2 kg/m2 25.2 k g/m2 CYND[facility] ([facility]) Systolic blood pressure 105 mm[Hg] 105 mm[Hg] A THENA ([facility]) Body weight 2352 [oz_av] 2352 [oz_av] CYNDI ([facility]) Diastolic blood pressure 66 mm[Hg] 66 mm[Hg] CYNDI ([facility]) Body height 64 [in_i] 64 [in_i] CYNDI ([facility]) Body mass index (BMI) [Ratio] 25.2 kg/m2 25.2 k g/m2 CYND[facility] ([facility]) Systolic blood pressure 105 mm[Hg] 105 mm[Hg] [facility] Body weight 2352 [oz_av] 2352 [oz_av] CYNDI ([facility]) Body weight 2352 [oz_av] 2352 [oz_av] CYNDI ([facility]) Diastolic blood pressure 66 mm[Hg] 66 mm[Hg] CYNDI ([facility]) Body height 64 [in_i] 64 [in_i] CYNDI ([facility]) Body mass index (BMI) [Ratio] 25.2 kg/m2 25.2 k g/m2 CYND[facility] ([facility]) Systolic blood pressure 105 mm[Hg] 105 mm[Hg] A THENA ([facility]) ID Date Data Source [id number] 08/19/2020 10:38:24 AM [facility] Name Value Range Interpretation Code Description Data Source(s) WEIGHT RECORDED 155 lb 155 lb [facility] Body height Measured 64.5 in 64.5 in [facility] Patient Treatment Plan of Care Planned Activity Planned Date Details Description Data Source (s) OneTouch Ultra In Vitro Strip 05/28/2021 12:00:00 AM [facility] Tresiba FlexTouch 100 UNIT/ML Subcutaneo us Solution Pen-injector (insulin degludec) 05/28/2021 12:00:00 AM [facility] Baqsimi One Pack 3 MG/DOSE Nasal Powder (Glucagon) 05/28/2021 12 :00:00 AM [facility] Insulin Pen Needle 31G X 6 MM 02/20/2021 12:00:00 AM [facility] Insulin, Aspart, Human 100 UNT/ML Injectable Solution 02/05/2021 12:00:00 AM [facility] ospital OneTouch Ultra In Vitro Strip 11/03/2020 12:00:00 AM [facility] Insulin Syringe 31G X 5/16" 1 ML 09/19/2020 12:00:00 AM [facility] Adhesive Remover Wipes XL 07/02/2020 12:00:00 AM [facility] Dexcom G6 Front Desk Clerk Device 07/02/2020 12:00:00 AM [facility] Dexcom G6 Sensor 07/02/2020 12:00:00 AM [facility] Dexcom G6 Transmitter 07/02/2020 12:00:00 AM [facility] Tegaderm Film 4"x4-3/4" 07/02/2020 12:00:00 AM [facility] Insulin Degludec 100 UNIT/ML Subcutaneou s Solution Pen-injector (Tresiba FlexTouch) 04/01/2020 12:00:00 AM [facility] Ergocalciferol 26365 UNT Oral Capsule 11/23/2019 12:00:00 AM [facility] Glucagon 3 MG/DOSE Nasal Powder (BAQSIMI ONE PACK) 10/29/2019 12 :00:00 AM [facility] Glucagon 1 MG Injection 10/11/2018 12:00:00 AM [facility] Unifine Pentips 31 gauge x 1/4" needle U SE DIRECTED WITH TRESIBA AND NOVOLOG PENS UP TO 6 TIMES DAILY [place] ([facility]) Prednisone 20 MG Oral Tablet [place] ([facility]) Phosphorous Supplement 280 mg-160 mg-250 mg oral powder packet MIX 1 PACKET AND DRINK THREE TIMES DAILY [place] ( [facility]) OneTouch Ultra Test strips USE INSTRUCTED 6 TIMES DAILY TO CH SUZANNA SUGARS CYNDI ([facility] er) OneTouch Ultra Blue Test Strip USE TO CHECK BLOOD GLUCOSE 6 TIMES D [place] ([facility]) Insulin, Aspart, Human 100 UNT/ML Injectable Solution [NovoLog] [place] ([facility]) Lisinopril 5 MG Oral Tablet [facility] ([facility]) Lisinopril 10 MG Oral Tablet [facility] ([facility]) insulin syringe U-100 with needle 1 mL 31 gauge x 5/16" [facility] ([facility]) Ibuprofen 600 MG Oral Tablet [facility] ([facility]) Ergocalciferol 90124 UNT Oral Capsule [facility] ([facility]) Dexamethasone 1 MG/ML Ophthalmic Solution [facility] ([facility]) Ciprofloxacin 3 MG/ML Ophthalmic Solution [place] ([facility]) Cholecalciferol 2000 UNT Oral Tablet [facility] ([facility]) Cholecalciferol 55784 UNT Oral Capsule [facility] ([facility]) Baqsimi 3 mg/actuation nasal spray SPRAY 3MG IN ONE NOSTRIL TO TREAT SEVERE HYPOGLYCEMIA [facility] ([facility]) atorvastatin 40 MG Oral Tablet [facility] ([facility]) atorvastatin 20 MG Oral Tablet [facility] ([facility]) Cholecalciferol 5000 UNT Oral Capsule [facility] Prednisone 20 MG Oral Tablet [facility] ([facility]) Phosphorous Supplement 280 mg-160 mg-250 mg oral powder packet MIX 1 PACKET AND DRINK THREE TIMES DAILY [facility] ( [facility]) Insulin, Aspart, Human 100 UNT/ML Injectable Solution [NovoLog] [facility] ([facility]) Lisinopril 5 MG Oral Tablet [facility] ([facility]) Lisinopril 10 MG Oral Tablet [facility] ([facility]) Ibuprofen 600 MG Oral Tablet [facility] ([facility]) Ergocalciferol 77141 UNT Oral Capsule [facility] ([facility]) Dexamethasone 1 MG/ML Ophthalmic Solution [facility] ([facility]) Ciprofloxacin 3 MG/ML Ophthalmic Solution [facility] ([facility]) Cholecalciferol 2000 UNT Oral Tablet [facility] ([facility]) Cholecalciferol 01389 UNT Oral Capsule [facility] ([facility]) Baqsimi 3 mg/actuation nasal spray SPRAY 3MG IN ONE NOSTRIL TO TREAT SEVERE HYPOGLYCEMIA [facility] ([facility]) atorvastatin 40 MG Oral Tablet [facility] ([facility]) atorvastatin 20 MG Oral Tablet [facility] ([facility]) Prednisone 20 MG Oral Tablet [facility] ([facility]) Phosphorous Supplement 280 mg-160 mg-250 mg oral powder packet MIX 1 PACKET AND DRINK THREE TIMES DAILY [facility] ( [facility]) Insulin, Aspart, Human 100 UNT/ML Injectable Solution [NovoLog] [facility] ([facility]) Lisinopril 5 MG Oral Tablet [facility] ([facility]) Lisinopril 10 MG Oral Tablet [facility] ([facility]) Ibuprofen 600 MG Oral Tablet [facility] ([facility]) Ergocalciferol 72097 UNT Oral Capsule [facility] ([facility]) Dexamethasone 1 MG/ML Ophthalmic Solution [facility] ([facility]) Ciprofloxacin 3 MG/ML Ophthalmic Solution [facility] ([facility]) Cholecalciferol 2000 UNT Oral Tablet [facility] ([facility]) Cholecalciferol 89237 UNT Oral Capsule [facility] ([facility]) Baqsimi 3 mg/actuation nasal spray SPRAY 3MG IN ONE NOSTRIL TO TREAT SEVERE HYPOGLYCEMIA [facility] ([facility]) atorvastatin 40 MG Oral Tablet [facility] ([facility]) atorvastatin 20 MG Oral Tablet [facility] ([facility]) Prednisone 20 MG Oral Tablet [facility] ([facility]) Phosphorous Supplement 280 mg-160 mg-250 mg oral powder packet MIX 1 PACKET AND DRINK THREE TIMES DAILY [facility] ( [facility]) Lisinopril 5 MG Oral Tablet [facility] ([facility]) Ergocalciferol 13841 UNT Oral Capsule [facility] ([facility]) Cholecalciferol 2000 UNT Oral Tablet [facility] ([facility]) Baqsimi 3 mg/actuation nasal spray SPRAY 3MG IN ONE NOSTRIL TO TREAT SEVERE HYPOGLYCEMIA CY[facility]I ([facility]) atorvastatin 20 MG Oral Tablet [facility] ([facility]) Lisinopril 5 MG Oral Tablet [facility] ([facility]) Ergocalciferol 22181 UNT Oral Capsule [facility] ([facility]) Cholecalciferol 2000 UNT Oral Tablet [facility] ([facility]) Baqsimi 3 mg/actuation nasal spray SPRAY 3MG IN ONE NOSTRIL TO TREAT SEVERE HYPOGLYCEMIA CYNDI ([facility]) atorvastatin 20 MG Oral Tablet [facility] ([facility]) Prednisone 20 MG Oral Tablet [facility] ([facility]) Phosphorous Supplement 280 mg-160 mg-250 mg oral powder packet MIX 1 PACKET AND DRINK THREE TIMES DAILY [facility] ( [facility]) Lisinopril 5 MG Oral Tablet [facility] ([facility]) Ergocalciferol 20530 UNT Oral Capsule [facility] ([facility]) Cholecalciferol 2000 UNT Oral Tablet [facility] ([facility]) Baqsimi 3 mg/actuation nasal spray SPRAY 3MG IN ONE NOSTRIL TO TREAT SEVERE HYPOGLYCEMIA CYNDI ([facility]) atorvastatin 20 MG Oral Tablet [facility] ([facility]) Prednisone 20 MG Oral Tablet [facility] ([facility]) Phosphorous Supplement 280 mg-160 mg-250 mg oral powder packet MIX 1 PACKET AND DRINK THREE TIMES DAILY [facility] ( [facility])
[2021-10-18] MEDS ORDERED: BACTRIM 160MG/800MG DS TAB PO ONE (06:40)
[2021-10-18] MEDS ORDERED: BACT800T5 PO (06:45)
[2021-10-18] MEDS ORDERED: BACI500O21 TOP (06:46)
--- OUTSIDE RECORDS SUMMARY | 2021-10-18 07:06 | CCD ---
Author Author [facility] Organization [facility] Address Unknown Phone Unavailable Support Name Relationship Address Phone Rosibel Philippe Next Of Kin Unknown Unavailable MCDONCARNANCY Next Of Kin [address] [place] [address] [employer] Next Of Kin [address] [place] [address] Nikki Flowers Next Of Kin [address] [place] [address] ROSIBEL TONEY Next Of Kin [address] [place] [address] JAMES EVANS Next Of Kin [address] [facility] [address] [place] [address] SYL Next Of Kin [address] [place] [address] ROSIBEL ADLER Next Of Kin [address] [place] [address] MING LOPEZ Next Of Kin [address] [facility] [address] [place] [address] Unavailable MELODIE BURNETT Next Of Kin Unknown [employer] ([employer]CDONAL Next Of Kin [address] [facility] [address] [place] [address] CYNDI MCKEON Next [place] [address] [place] [address] MCDONALDS Next Of Kin [address] [facility] [place] [address] NEISHA TERESA Next Of Kin [address] [place] [address] ST Next Of Kin Unknown Unavailable ABIMBOLA BURNETT Next Of Kin [address] [place] [address] AMIE Next Of Kin [address] [place] [address] ANGEL BURNETT Next Of Kin [address] [place] [address] MAXIMILIANOO, (HC PROXY) MELODIE Next Of Kin [address] [place] [address] Care Team Providers Care Aeronautical Drafter Name Role Phone Chris Lentz MD Unavailable [...] Unavailable Chris Lentz MD Unavailable Unavailable Chris Lnetz MD Unavailable Unavailable Chris Lentz MD Unavailable [...] Maring, Bashir PA Unavailable Unavailable Jonah, Nikki GROUNDS MAINTENANCE SUPERVISOR GROUNDS MAINTENANCE SUPERVISOR Unavailable Unavailable Nalla, Jackie Unavailable Nalla, Jackie Unavailable Nalla, Jackie Unavailable Jonah, A Nikki GROUNDS MAINTENANCE SUPERVISOR Unavailable Unavailable Jonah, A Nikki GROUNDS MAINTENANCE SUPERVISOR Unavailable Unavailable Jonah, A Nikki GROUNDS MAINTENANCE SUPERVISOR Unavailable Unavailable Jonah, A Nikki GROUNDS MAINTENANCE SUPERVISOR Unavailable Unavailable Jonah, A Nikki GROUNDS MAINTENANCE SUPERVISOR Unavailable Unavailable Jonah, A Nikki GROUNDS MAINTENANCE SUPERVISOR Unavailable Unavailable Jonah, A Nikki GROUNDS MAINTENANCE SUPERVISOR Unavailable Unavailable Jonah, A Nikki GROUNDS MAINTENANCE SUPERVISOR Unavailable Unavailable Alamo, A Nikki GROUNDS MAINTENANCE SUPERVISOR Unavailable Unavailable Alamo, A Nikki GROUNDS MAINTENANCE SUPERVISOR Unavailable Unavailable Alamo, A Nikki GROUNDS MAINTENANCE SUPERVISOR Unavailable Unavailable [place]amo, A Nikki GROUNDS MAINTENANCE SUPERVISOR Unavailable Unavailable [place], A Nikki GROUNDS MAINTENANCE SUPERVISOR Unavailable Unavailable [place], A Nikki GROUNDS MAINTENANCE SUPERVISOR Unavailable Unavailable Alamo, A Nikki GROUNDS MAINTENANCE SUPERVISOR Unavailable Unavailable [place], A Nikki GROUNDS MAINTENANCE SUPERVISOR Unavailable Unavailable [place], A Nikki GROUNDS MAINTENANCE SUPERVISOR Unavailable Unavailable [place], A Nikki GROUNDS MAINTENANCE SUPERVISOR Unavailable Unavailable [place], A Nikki GROUNDS MAINTENANCE SUPERVISOR Unavailable Unavailable Alamo, A Nikki GROUNDS MAINTENANCE SUPERVISOR Unavailable Unavailable [place], A Nikki GROUNDS MAINTENANCE SUPERVISOR Unavailable Unavailable [place]amo, A Nikki GROUNDS MAINTENANCE SUPERVISOR Unavailable Unavailable [place], A Nikki GROUNDS MAINTENANCE SUPERVISOR Unavailable Unavailable [place], A Nikki GROUNDS MAINTENANCE SUPERVISOR Unavailable Unavailable [place], A Nikki GROUNDS MAINTENANCE SUPERVISOR Unavailable Unavailable [place], A Nikki GROUNDS MAINTENANCE SUPERVISOR Unavailable Unavailable [place], A Nikki GROUNDS MAINTENANCE SUPERVISOR Unavailable Unavailable [place], A Nikki GROUNDS MAINTENANCE SUPERVISOR Unavailable Unavailable [place], A Nikki GROUNDS MAINTENANCE SUPERVISOR Unavailable Unavailable [place], A Nikki GROUNDS MAINTENANCE SUPERVISOR Unavailable Unavailable Alamo, A Nikki GROUNDS MAINTENANCE SUPERVISOR Unavailable Unavailable NALLA, JACKIE Unavailable Unavailable ANNIE, [...] is protected by Article 27-F of the [facility] Public Health law. If you continue you may have access to information: Regarding HIV / AIDS; Provided by facilities licensed or operated by the [facility] Office of Mental Health; or Provided by the [facility] Office for People With Developmental Disabilities. If such information is present, then the following [facility] mandated warning applies: This information has [...] law may result in a fine or chcf sentence or both. A general authorization for [...] Jackie Cageender: JACKIE SANDERS 2021 12:00:00 AM [facility] Outpatient Attender: JACKIE Angel: Jackie Destiny 09/15/2021 12:00:00 AM EDT [facility] Cesar Lentz MD: [address] [place] [address], Ph. Attender: Cesar Lentz MD [facility] Medical 07/02/2021 12:00:00 AM EDT [facility] ([facility]) Outpatient Attender: GABRIELLA GAMA [id number] 05/28/2021 1 2:00:00 AM EDT Type 1 diabetes mellitus with hypoglycemia without coma [facility] Type 1 diabetes mellitus with hypoglycem ia without coma Nikki Mckenzie [facility]: [address] [place] [address], Ph. Attender: Nikki Mckenzie [facility] Medical 05/07/2021 12:00:00 AM EDT [facility] ([facility]) Nikki Mckenzie [facility]: [address] [place] [address], Ph. Attender: Nikki Mckenzie [facility] Medical 05/07/2021 12:00:00 AM EDT [facility] ([facility]) Cesar Lentz MD: [address] [place] [address], Ph. Attender: Cesar Lentz MD [facility] Medical 04/22/2021 12:00:00 AM EDT [facility] ([facility]) Cesar Lentz MD: [address] [place] [address], Ph. Attender: Cesar Lentz MD [facility] Medical 04/22/2021 12:00:00 AM EDT [facility] ([facility]) Cesar Lentz MD: [address] [place] [address], Ph. Attender: Cesar Lentz MD [facility] Medical 04/22/2021 12:00:00 AM EDT [facility] ([facility]) Outpatient Attender: KIM Liu Primary 03/26/2021 05:15:00 PM EDT [facility] ([facility]) Cesar Lentz MD: [address] [place] [address], Ph. Attender: Cesar Lentz MD [facility] Medical 03/10/2021 12:00:00 AM EDT [facility] ([facility]) Cesar Lentz MD: [address] [place] [address], Ph. Attender: Cesar Lentz MD [facility] Medical 03/10/2021 12:00:00 AM EDT [facility] ([facility]) Cesar Lentz MD: [address] [place] [address], Ph. Attender: Cesar Lentz MD [facility] Medical 03/10/2021 12:00:00 AM EDT [facility] ([facility]) Cesar Lentz MD: [address] [place] [address], Ph. Attender: Cesar Lentz MD [facility] Medical 03/10/2021 12:00:00 AM EDT [facility] ([facility]) Outpatient Attender: GABRIELLA GAMA [id number] 02/20/2021 1 2:00:00 AM EDT Type 1 diabetes mellitus with hyperglycemia [facility] Type 1 diabetes mellitus with hyperglyce oneil Lentz MD: [address] [place] [address], Ph. Attender: Cesar Lentz MD [facility] Medical 02/10/2021 12:00:00 AM EDT [facility] ([facility]) Cesar Lentz MD: [address] [place] [address], Ph. Attender: Cesar Lentz MD [facility] Medical 02/10/2021 12:00:00 AM EDT [facility] ([facility]) Cesar Lentz MD: [address] [place] [address], Ph. Attender: Cesar Lentz MD [facility] Medical 02/10/2021 12:00:00 AM EDT [facility] ([facility]) Cesar Lentz MD: [address] [place] [address], Ph. Attender: Cesar Lentz MD [facility] Medical 02/10/2021 12:00:00 AM EDT [facility] ([facility]) Cesar Lentz MD: [address] [place] [address], Ph. Attender: Cesar Lentz MD [facility] Medical 02/10/2021 12:00:00 AM EDT [facility] ([facility]) Cesar Lentz MD: [address] [place] [address], Ph. Attender: Cesar Lentz MD [facility] Medical 12/25/2020 12:00:00 AM EST [facility] ([facility]) Cesar Lentz MD: [address] [place] [address], Ph. Attender: Cesar Lentz MD [facility] Medical 12/25/2020 12:00:00 AM EST [facility] ([facility]) Cesar Lentz MD: [address] [place] [address], Ph. Attender: Cesar Lentz MD [facility] Medical 12/25/2020 12:00:00 AM EST [facility] ([facility]) Cesar Lentz MD: [address] [place] [address], Ph. Attender: Cesar Lentz MD [facility] Medical 12/25/2020 12:00:00 AM EST [facility] ([facility]) Cesar Lentz MD: [address] [place] [address], Ph. Attender: Cesar Lentz MD [facility] Medical 12/25/2020 12:00:00 AM EST [facility] ([facility]) Cesar Lentz MD: [address] [place] [address], Ph. Attender: Cesar Lentz MD [facility] Medical 12/25/2020 12:00:00 AM EST [facility] ([facility]) Outpatient Attender: Bashir GAMA 12/24/19 10:49:12 AM EST - 12/24/2020 11:00:40 AM EST [facility] ([facility] ) Outpatient Attender: JACKIE SANDERS 11/19/2020 12:00:00 AM [facility] Cesar Lentz MD: [address] [place] [address], Ph. Attender: Cesar Lentz MD [facility] Medical 09/25/2020 12:00:00 AM EST [facility] ([facility]) Cesar Lentz MD: [address] [place] [address], Ph. Attender: Cesar Lentz MD [facility] Medical 09/25/2020 12:00:00 AM EST [facility] ([facility]) Cesar Lentz MD: [address] [place] [address], Ph. Attender: Cesar Lentz MD [facility] Medical 09/25/2020 12:00:00 AM EST [facility] ([facility]) Cesar Lentz MD: [address] [place] [address], Ph. Attender: Cesar Lentz MD [facility] Medical 09/25/2020 12:00:00 AM EST [facility] ([facility]) Cesar Lentz MD: [address] [place] [address], Ph. Attender: Cesar Lentz MD [facility] Medical 09/25/2020 12:00:00 AM EST [facility] ([facility]) Cesar Lentz MD: [address] [place] [address], Ph. Attender: Cesar Lentz MD [facility] Medical 09/25/2020 12:00:00 AM EST [facility] ([facility]) Cesar Lentz MD: [address] [place] [address], Ph. Attender: Cesar Lentz MD [facility] Medical 09/25/2020 12:00:00 AM EST [facility] ([facility]) Outpatient Attender: MICHAEL JACQUES 09/02/2020 05:15:00 P M EDT [facility] Outpatient Attender: GABRIELLA GAMA [id number] 08/19/2020 1 2:00:00 AM EDT Type 1 diabetes mellitus with hyperglycemia [facility] Type 1 diabetes mellitus with hyperglyce [facility] Outpatient Attender: Jessica Jara MD 08/19/2020 12:00:00 A M EDT [facility] Immunizations Vaccine Date Status Description Data Source(s) COVID-19, mRNA, LNP-S, PF, 100 mcg/0.5 mL dose 03/10/2021 10 :46:37 AM EDT completed .5 mL [facility] ([facility]) COVID-19, mRNA, LNP-S, PF, 100 mcg/0.5 mL dose 03/10/2021 10 :46:37 AM EDT completed .5 mL [facility] ([facility]) COVID-19, mRNA, LNP-S, PF, 100 mcg/0.5 mL dose 03/10/2021 10 :46:37 AM EDT completed .5 mL [facility] ([facility]) COVID-19, mRNA, LNP-S, PF, 100 mcg/0.5 mL dose 03/10/2021 10 :46:37 AM EDT completed .5 mL [facility] ([facility]) COVID-19 VACCINE Moderna 03/10/2021 12:00:00 AM EDT completed [facility] Vaccine Series Complete: YESThis Data wa s Submitted to [facility] Via [facility]. COVID-19, mRNA, LNP-S, PF, 100 mcg/0.5 mL dose 02/10/2021 09 :12:40 PM EDT completed .5 mL [facility] ([facility]) COVID-19, mRNA, LNP-S, PF, 100 mcg/0.5 mL dose 02/10/2021 09 :12:40 PM EDT completed .5 mL [facility] ([facility]) COVID-19, mRNA, LNP-S, PF, 100 mcg/0.5 mL dose 02/10/2021 09 :12:40 PM EDT completed .5 mL [facility] ([facility]) COVID-19, mRNA, LNP-S, PF, 100 mcg/0.5 mL dose 02/10/2021 09 :12:40 PM EDT completed .5 mL [facility] ([facility]) COVID-19, mRNA, LNP-S, PF, 100 mcg/0.5 mL dose 02/10/2021 09 :12:40 PM EDT completed .5 mL [facility] ([facility]) COVID-19 VACCINE Moderna 02/10/2021 12:00:00 AM EDT completed [facility] Vaccine Series Complete: NOThis Data was Submitted to [facility] Via [employer]. New in 2011. IIV4 09/25/2020 02:34:00 PM EST completed .5 mL [facility] ([facility]) New in 2011. IIV4 09/25/2020 02:34:00 PM EST completed .5 mL [facility] ([facility]) New in 2011. IIV4 09/25/2020 02:34:00 PM EST completed .5 mL [facility] ([facility]) New in 2011. IIV4 09/25/2020 02:34:00 PM EST completed 0.5 mL [facility] ([facility]) New in 2011. IIV4 09/25/2020 02:34:00 PM EST completed .5 mL [facility] ([facility]) New in 2011. IIV4 09/25/2020 02:34:00 PM EST completed .5 mL [facility] ([facility]) New in 2011. IIV4 09/25/2020 02:34:00 PM EST completed .5 mL [facility] ([facility]) Medications Medication Brand Name Start Date Product Form Dose Route Admi nistrative Instructions Pharmacy Instructions Status Indications Reaction Description Data Source(s) Baqsimi One Pack 3 MG/DOSE Nasal Powder (Glucagon) [id number] -11 05/28/2021 12:00:00 AM EDT active [place] 3mg in one nostril to treat severe hypoglycemia. Dx E10.65 . [facility] Tresiba FlexTouch 100 UNIT/ML Subcutaneo us Solution Pen-injector (insulin degludec) 4049-4630-94 05/28/2021 12:00:00 AM EDT active Type 1 diabetes mellitus with hyperglycemia Inject 21 units i n the morning and 20 units in the evening as directed. MDD 63 units with priming and titration [facility] Type 1 diabetes mellitus with hyperglyce oneil OneTouch Ultra In Vitro Strip 39464-307-97 05/28/2021 12:00:00 AM EDT active Type 1 diabetes mellitus with hyperglycemia Use as instructed 6 times daily to check sugars. Dx: E10.65 [facility] Type 1 diabetes mellitus with hyperglyce oneil Insulin Pen Needle 31G X 6 MM [address]9219 02/20/2021 12:00:00 AM EDT active Use as directed. With Tresiba and Novolo g pens up to 6 times daily. E 10.65 [facility] Insulin, Aspart, Human 100 UNT/ML Inject able Solution Insulin Aspart 100 UNIT/ML Subcutaneous Solution (NOVOLOG) Insulin Aspart 100 UNIT/ML Subcutaneous Solution (NOVOLOG) 02/05/2021 12:00:00 AM EDT act [facility] Type 1 diabetes mellitus with hyperglycemia Inject as per sliding scale. MDD- 95 units with titration. Dx: E10.65 [facility] Type 1 diabetes mellitus with hyperglyce oneil OneTouch Ultra In Vitro Strip 33003-570-23 11/03/2020 12:00:00 AM EST aborted Type 1 diabetes mellitus with hyperglycemia USE TO CHECK BLOOD GLUCOSE 6 TIMES DAILY [facility] Type 1 diabetes mellitus with hyperglyce oneil Insulin Syringe 31G X 5/16" 1 ML [address] 09/19/2020 12:00:00 AM EST active Type 1 diabetes mellitus with hyperglycemia Use as directed. USE DIRECTED WITH INSULIN INJECTIONS UP TO 6 TIMES DAILY [facility] Type 1 diabetes mellitus with hyperglyce oneil Dexcom G6 Sensor [id number] 07/02/2020 12:00:00 AM EDT 1 {each} Does not apply aborted Type 1 diabetes mellitus with hyperg lycemia 1 each by Does not apply route every 7 (seven) days [facility] Type 1 diabetes mellitus with hyperglyce oneil Dexcom G6 Clinical Recruiter Device [id number] 07/02/2020 12:00:00 AM EDT aborted Type 1 diabetes mellitus with hyperglycemia GABRIELA Y DIRECTED [facility] Type 1 diabetes mellitus with hyperglyce oneil Tegaderm Film 4"x4-3/4" 8085-1397-52 07/02/2020 12:00:00 AM EDT aborted Type 1 diabetes mellitus with hyperglycemia GABRIELA Y DIRECTED [facility] Type 1 diabetes mellitus with hyperglyce oneil Dexcom G6 Transmitter [id number] 07/02/2020 12:00:00 AM EDT aborted Type 1 diabetes mellitus with hyperglycemia DAILY DIRECTE D [facility] Type 1 diabetes mellitus with hyperglyce oneil Adhesive Remover Wipes XL [id number] 07/02/2020 12:00:00 AM EDT 1 {each} Topical aborted Type 1 diabetes mellitus with hyperg lycemia Apply 1 each topically once a week [facility] Type 1 diabetes mellitus with hyperglyce oneil Insulin Degludec 100 UNIT/ML Subcutaneou s Solution Pen-injector (Tresiba FlexTouch) [id number] 04/01/2020 12:00:00 AM EDT aborted Type 1 diabetes mellitus with hyperglycemia Inject 17 units in the mor doreen and 17 units in the evening as directed. MDD 58 units with priming and titration [facility] Type 1 diabetes mellitus with hyperglyce oneil Ergocalciferol 64866 UNT Oral Capsule Er gocalciferol 1.25 MG (91159 UT) Oral Capsule (ERGOCALCIFEROL) Ergocalciferol 1.25 MG (29842 UT) Oral C apsule (ERGOCALCIFEROL) 11/23/2019 12:00:00 AM EST 38404 U Oral active Take 1 capsule by mouth once a week For 8 weeks only. [facility] Glucagon 3 MG/DOSE Nasal Powder (BAQSIMI ONE PACK) [id number] 10/29/2019 12:00:00 AM EST aborted [place] 3m g in one nostril to treat severe hypoglycemia. Dx E10.65 . [facility] Glucagon 1 MG Injection glucagon (GLUCAGON EMERGENCY) 1 MG injection glucagon (GLUCAGON EMERGENCY) 1 MG injection 10/11/2018 12:00:00 AM EST aborted Type 1 diabetes mellitus with hyperglycemia Inject 1 mg SC/IM for severe hypoglycemic event. [facility] Type 1 diabetes mellitus with hyperglyce oneil Dexamethasone 1 MG/ML Ophthalmic Solutio n dexamethasone sodium phosphate 0.1 % eye drops INSTILL 2 DROPS THROUGH TRACHE SITE THREE TIMES DAILY FOR 5 DAYS INSTRUCTED dexamethasone sodium phosphate 0.1 % eye drops INSTILL 2 DROPS THROUGH TRACHE SITE THREE TIMES DAILY FOR 5 DAYS INSTRUCTED completed dexamethasone phosphate 1 MG/ML Ophthalmic Solution [facility] ([facility]) Ciprofloxacin 3 MG/ML Ophthalmic Solutio n ciprofloxacin 0.3 % eye drops INSTILL 2 DROPS THROUGH TRACHE SITE THREE TIMES DAILY FOR 5 DAYS INSTRUCTED ciprofloxacin 0.3 % eye drops INSTILL 2 DROPS THROUGH TRACHE SITE THREE TIMES DAILY FOR 5 DAYS INSTRUCTED complet ed ciprofloxacin 3 MG/ML Ophthalmic Solution [facility] ([facility]) Cholecalciferol 2000 UNT Oral Tablet cho lecalciferol (vitamin D3) 50 mcg (2,000 unit) tablet TK ONE T PO D cholecalciferol (vitamin D3) 50 mcg (2,0 00 unit) tablet TK ONE T PO D completed cholecalciferol 0.05 MG Oral Tablet [facility] ([facility]) Prednisone 20 MG Oral Tablet prednisone 20 mg tablet T K 2 TS PO D FOR 4 DAYS prednisone 20 mg tablet TK 2 TS PO D FOR 4 DAYS completed prednisone 20 MG Oral Tablet [facility] ([facility]) Cholecalciferol 2000 UNT Oral Tablet cho lecalciferol (vitamin D3) 50 mcg (2,000 unit) tablet TK ONE T PO D cholecalciferol (vitamin D3) 50 mcg (2,0 00 unit) tablet TK ONE T PO D completed cholecalciferol 0.05 MG Oral Tablet [facility] ([facility]) Lisinopril 5 MG Oral Tablet lisinopril 5 mg tablet TK 1 T PO QD lisinopril 5 mg tablet TK 1 T PO QD completed li sinopril 5 MG Oral Tablet [facility] ([facility]) Ibuprofen 600 MG Oral Tablet ibuprofen 600 mg tablet ibuprofen 6 00 mg tablet completed ibuprofen 600 MG Oral Tablet [facility] ([facility]) Lisinopril 5 MG Oral Tablet lisinopril 5 mg tablet TK 1 T PO QD lisinopril 5 mg tablet TK 1 T PO QD completed li sinopril 5 MG Oral Tablet [facility] ([facility]) Insulin, Aspart, Human 100 UNT/ML Inject able Solution [NovoLog] Novolog U-100 Insulin aspart 100 unit/mL subcutaneous solution INJECT PER SLIDING SCALE MDD 95 UNITS WITH TITRATION Novolog U-100 Insulin aspart 100 unit/mL subcutaneous solution INJECT PER SLIDING SCALE MDD 95 UNITS WITH TITRATION completed insulin aspart, human 100 UNT/ML Injectable Solution [NovoLog] [facility] ([facility]) Cholecalciferol 2000 UNT Oral Tablet cho lecalciferol (vitamin D3) 50 mcg (2,000 unit) tablet TK ONE T PO D cholecalciferol (vitamin D3) 50 mcg (2,0 00 unit) tablet TK ONE T PO D completed cholecalciferol 0.05 MG Oral Tablet [facility] ([facility]) Lisinopril 5 MG Oral Tablet lisinopril 5 mg tablet TK 1 T PO QD lisinopril 5 mg tablet TK 1 T PO QD completed li sinopril 5 MG Oral Tablet [facility] ([facility]) Cholecalciferol 5000 UNT Oral Capsule Vitamin D3 125 M CG (5000 UT) Oral Capsule Vitamin D3 125 MCG (5000 UT) Oral Capsule 5000 U Oral aborted Take 5,000 Units by mouth Once Daily [facility] Lisinopril 5 MG Oral Tablet lisinopril 5 mg tablet TK 1 T PO QD lisinopril 5 mg tablet TK 1 T PO QD completed li sinopril 5 MG Oral Tablet [facility] ([facility]) Phosphorous Supplement 280 mg-160 mg-250 mg oral powder packet MIX 1 PACKET AND DRINK THREE TIMES DAILY [id number] completed Phosphorous Supplement 280 mg-160 mg-250 mg oral powder packet [facility] ([facility]) Baqsimi 3 mg/actuation nasal spray SPRAY 3MG IN ONE NOSTRIL TO TREAT SEVERE HYPOGLYCEMIA 307379 completed gl ucagon 3 MG Nasal Powder [Baqsimi] [facility] ([facility]) OneTouch Ultra Blue Test Strip USE TO CHECK BLOOD GLUCOSE 6 TIMES D 284402 completed OneTouch Ultra Blue Te st Strip [facility] ([facility]) Cholecalciferol 57774 UNT Oral Capsule c holecalciferol (vitamin D3) 1,250 mcg (50,000 unit) capsule TK 1 C PO ONCE PER WEEK cholecalciferol (vitamin D3) 1,250 mcg (50,000 unit) capsule TK 1 C PO ONCE PER WEEK completed cholecalciferol 1.25 MG Oral Capsule [facility] ([facility]) Baqsimi 3 mg/actuation nasal spray SPRAY 3MG IN ONE NOSTRIL TO TREAT SEVERE HYPOGLYCEMIA 200404 completed gl ucagon 3 MG Nasal Powder [Baqsimi] [facility] ([facility]) Prednisone 20 MG Oral Tablet prednisone 20 mg tablet T K 2 TS PO D FOR 4 DAYS prednisone 20 mg tablet TK 2 TS PO D FOR 4 DAYS completed prednisone 20 MG Oral Tablet [facility] ([facility]) Prednisone 20 MG Oral Tablet prednisone 20 mg tablet T K 2 TS PO D FOR 4 DAYS prednisone 20 mg tablet TK 2 TS PO D FOR 4 DAYS completed prednisone 20 MG Oral Tablet [facility] ([facility]) atorvastatin 40 MG Oral Tablet atorvastatin 40 mg tabl et atorvastatin 40 mg tablet completed atorvastatin 40 MG Oral Tablet [facility] ([facility]) Ergocalciferol 15045 UNT Oral Capsule er gocalciferol (vitamin D2) 1,250 mcg (50,000 unit) capsule TK 1 C PO 1 TIME A WK FOR 8 WKS ONLY ergocalciferol (vitamin D2) 1,250 mcg (50,000 unit) capsule TK 1 C PO 1 TIME A WK FOR 8 WKS ONLY completed ergocalciferol 1 .25 MG Oral Capsule [facility] ([facility]) Phosphorous Supplement 280 mg-160 mg-250 mg oral powder packet MIX 1 PACKET AND DRINK THREE TIMES DAILY [id number] completed Phosphorous Supplement 280 mg-160 mg-250 mg oral powder packet [facility] ([facility]) atorvastatin 20 MG Oral Tablet atorvastatin 20 mg tabl et atorvastatin 20 mg tablet completed atorvastatin 20 MG Oral Tablet [facility] ([facility]) Cholecalciferol 32071 UNT Oral Capsule c holecalciferol (vitamin D3) 1,250 mcg (50,000 unit) capsule TK 1 C PO ONCE PER WEEK cholecalciferol (vitamin D3) 1,250 mcg (50,000 unit) capsule TK 1 C PO ONCE PER WEEK completed cholecalciferol 1.25 MG Oral Capsule [facility] ([facility]) Phosphorous Supplement 280 mg-160 mg-250 mg oral powder packet MIX 1 PACKET AND DRINK THREE TIMES DAILY [id number] completed Phosphorous Supplement 280 mg-160 mg-250 mg oral powder packet ARMSTRONG ([facility]) Baqsimi 3 mg/actuation nasal spray SPRAY 3MG IN ONE NOSTRIL TO TREAT SEVERE HYPOGLYCEMIA 230886 completed gl ucagon 3 MG Nasal Powder [Baqsimi] CYNDI ([facility]) Phosphorous Supplement 280 mg-160 mg-250 mg oral powder packet MIX 1 PACKET AND DRINK THREE TIMES DAILY [id number] completed Phosphorous Supplement 280 mg-160 mg-250 mg oral powder packet CYNDI ([facility]) Ergocalciferol 50829 UNT Oral Capsule er gocalciferol (vitamin D2) 1,250 mcg (50,000 unit) capsule TK 1 C PO 1 TIME A WK FOR 8 WKS ONLY ergocalciferol (vitamin D2) 1,250 mcg (50,000 unit) capsule TK 1 C PO 1 TIME A WK FOR 8 WKS ONLY completed ergocalciferol 1 .25 MG Oral Capsule CYNDI ([facility]) Ciprofloxacin 3 MG/ML Ophthalmic Solutio n ciprofloxacin 0.3 % eye drops INSTILL 2 DROPS THROUGH TRACHE SITE THREE TIMES DAILY FOR 5 DAYS INSTRUCTED ciprofloxacin 0.3 % eye drops INSTILL 2 DROPS THROUGH TRACHE SITE THREE TIMES DAILY FOR 5 DAYS INSTRUCTED complet ed ciprofloxacin 3 MG/ML Ophthalmic Solution CYNDI ([facility]) Ergocalciferol 50853 UNT Oral Capsule er gocalciferol (vitamin D2) 1,250 mcg (50,000 unit) capsule TK 1 C PO 1 TIME A WK FOR 8 WKS ONLY ergocalciferol (vitamin D2) 1,250 mcg (50,000 unit) capsule TK 1 C PO 1 TIME A WK FOR 8 WKS ONLY completed ergocalciferol 1 .25 MG Oral Capsule CYNDI ([facility]) Ciprofloxacin 3 MG/ML Ophthalmic Solutio n ciprofloxacin 0.3 % eye drops INSTILL 2 DROPS THROUGH TRACHE SITE THREE TIMES DAILY FOR 5 DAYS INSTRUCTED ciprofloxacin 0.3 % eye drops INSTILL 2 DROPS THROUGH TRACHE SITE THREE TIMES DAILY FOR 5 DAYS INSTRUCTED complet ed ciprofloxacin 3 MG/ML Ophthalmic Solution CYNDI ([facility]) Dexamethasone 1 MG/ML Ophthalmic Solutio n dexamethasone sodium phosphate 0.1 % eye drops INSTILL 2 DROPS THROUGH TRACHE SITE THREE TIMES DAILY FOR 5 DAYS INSTRUCTED dexamethasone sodium phosphate 0.1 % eye drops INSTILL 2 DROPS THROUGH TRACHE SITE THREE TIMES DAILY FOR 5 DAYS INSTRUCTED completed dexamethasone phosphate 1 MG/ML Ophthalmic Solution CYNDI ([facility]) Prednisone 20 MG Oral Tablet prednisone 20 mg tablet T K 2 TS PO D FOR 4 DAYS prednisone 20 mg tablet TK 2 TS PO D FOR 4 DAYS completed prednisone 20 MG Oral Tablet CYNDI ([facility]) Cholecalciferol 2000 UNT Oral Tablet cho lecalciferol (vitamin D3) 50 mcg (2,000 unit) tablet TK ONE T PO D cholecalciferol (vitamin D3) 50 mcg (2,0 00 unit) tablet TK ONE T PO D completed cholecalciferol 0.05 MG Oral Tablet CYNDI ([facility]) Dexamethasone 1 MG/ML Ophthalmic Solutio n dexamethasone sodium phosphate 0.1 % eye drops INSTILL 2 DROPS THROUGH TRACHE SITE THREE TIMES DAILY FOR 5 DAYS INSTRUCTED dexamethasone sodium phosphate 0.1 % eye drops INSTILL 2 DROPS THROUGH TRACHE SITE THREE TIMES DAILY FOR 5 DAYS INSTRUCTED completed dexamethasone phosphate 1 MG/ML Ophthalmic Solution CYNDI ([facility]) Baqsimi 3 mg/actuation nasal spray SPRAY 3MG IN ONE NOSTRIL TO TREAT SEVERE HYPOGLYCEMIA 150181 completed gl ucagon 3 MG Nasal Powder [Baqsimi] ARMSTRONG ([facility]) atorvastatin 20 MG Oral Tablet atorvastatin 20 mg tabl et atorvastatin 20 mg tablet completed atorvastatin 20 MG Oral Tablet ARMSTRONG ([facility]) Insulin, Aspart, Human 100 UNT/ML Inject able Solution [NovoLog] Novolog U-100 Insulin aspart 100 unit/mL subcutaneous solution INJECT PER SLIDING SCALE MDD 95 UNITS WITH TITRATION Novolog U-100 Insulin aspart 100 unit/mL subcutaneous solution INJECT PER SLIDING SCALE MDD 95 UNITS WITH TITRATION completed insulin aspart, human 100 UNT/ML Injectable Solution [NovoLog] ARMSTRONG ([facility]) Cholecalciferol 2000 UNT Oral Tablet cho lecalciferol (vitamin D3) 50 mcg (2,000 unit) tablet TK ONE T PO D cholecalciferol (vitamin D3) 50 mcg (2,0 00 unit) tablet TK ONE T PO D completed cholecalciferol 0.05 MG Oral Tablet ARMSTRONG ([facility]) Insulin, Aspart, Human 100 UNT/ML Inject able Solution [NovoLog] Novolog U-100 Insulin aspart 100 unit/mL subcutaneous solution INJECT PER SLIDING SCALE MDD 95 UNITS WITH TITRATION Novolog U-100 Insulin aspart 100 unit/mL subcutaneous solution INJECT PER SLIDING SCALE MDD 95 UNITS WITH TITRATION completed insulin aspart, human 100 UNT/ML Injectable Solution [NovoLog] ARMSTRONG ([facility]) Ergocalciferol 00776 UNT Oral Capsule er gocalciferol (vitamin D2) 1,250 mcg (50,000 unit) capsule TK 1 C PO 1 TIME A WK FOR 8 WKS ONLY ergocalciferol (vitamin D2) 1,250 mcg (50,000 unit) capsule TK 1 C PO 1 TIME A WK FOR 8 WKS ONLY completed ergocalciferol 1 .25 MG Oral Capsule ARMSTRONG ([facility]) insulin syringe U-100 with needle 1 mL 31 gauge x 5/16" [id number] completed insulin syringe U-100 with needl e 1 mL 31 gauge x 5/16" ARMSTRONG ([facility]) atorvastatin 20 MG Oral Tablet atorvastatin 20 mg tabl et atorvastatin 20 mg tablet completed atorvastatin 20 MG Oral Tablet ARMSTRONG ([facility]) Lisinopril 5 MG Oral Tablet lisinopril 5 mg tablet TK 1 T PO QD lisinopril 5 mg tablet TK 1 T PO QD completed li sinopril 5 MG Oral Tablet CYNDI ([facility]) Lisinopril 10 MG Oral Tablet lisinopril 10 mg tablet T K 1 T PO D lisinopril 10 mg tablet TK 1 T PO D completed lisinopril 10 MG Oral Tablet CYNDI ([facility]) Ibuprofen 600 MG Oral Tablet ibuprofen 600 mg tablet ibuprofen 6 00 mg tablet completed ibuprofen 600 MG Oral Tablet CYNDI ([facility]) OneTouch Ultra Test strips USE INSTRUCTED 6 TIMES D AILY TO CHECK SUGARS 814082 completed OneTouch Ultra Test strips ARMSTRONG ([facility]) Phosphorous Supplement 280 mg-160 mg-250 mg oral powder packet MIX 1 PACKET AND DRINK THREE TIMES DAILY 460952 completed Phosphorous Supplement 280 mg-160 mg-250 mg oral powder packet ARMSTRONG ([facility]) Unifine Pentips 31 gauge x 1/4" needle U SE DIRECTED WITH TRESIBA AND NOVOLOG PENS UP TO 6 TIMES DAILY 427515 completed Unifine Pentips 31 gauge x 1/4" needle CYNDI ([facility]) atorvastatin 40 MG Oral Tablet atorvastatin 40 mg tabl et atorvastatin 40 mg tablet completed atorvastatin 40 MG Oral Tablet ARMSTRONG ([facility]) Phosphorous Supplement 280 mg-160 mg-250 mg oral powder packet MIX 1 PACKET AND DRINK THREE TIMES DAILY 190796 completed Phosphorous Supplement 280 mg-160 mg-250 mg oral powder packet CYNDI ([facility]) Prednisone 20 MG Oral Tablet prednisone 20 mg tablet T K 2 TS PO D FOR 4 DAYS prednisone 20 mg tablet TK 2 TS PO D FOR 4 DAYS completed prednisone 20 MG Oral Tablet CYNDI ([facility]) Ergocalciferol 60828 UNT Oral Capsule er gocalciferol (vitamin D2) 1,250 mcg (50,000 unit) capsule TK 1 C PO 1 TIME A WK FOR 8 WKS ONLY ergocalciferol (vitamin D2) 1,250 mcg (50,000 unit) capsule TK 1 C PO 1 TIME A WK FOR 8 WKS ONLY completed ergocalciferol 1 .25 MG Oral Capsule CYNDI ([facility]) Cholecalciferol 68703 UNT Oral Capsule c holecalciferol (vitamin D3) 1,250 mcg (50,000 unit) capsule TK 1 C PO ONCE PER WEEK cholecalciferol (vitamin D3) 1,250 mcg (50,000 unit) capsule TK 1 C PO ONCE PER WEEK completed cholecalciferol 1.25 MG Oral Capsule CYNDI ([facility]) atorvastatin 20 MG Oral Tablet atorvastatin 20 mg tabl et atorvastatin 20 mg tablet completed atorvastatin 20 MG Oral Tablet CYNDI ([facility]) Lisinopril 10 MG Oral Tablet lisinopril 10 mg tablet T K 1 T PO D lisinopril 10 mg tablet TK 1 T PO D completed lisinopril 10 MG Oral Tablet CYNDI ([facility]) Ibuprofen 600 MG Oral Tablet ibuprofen 600 mg tablet ibuprofen 6 00 mg tablet completed ibuprofen 600 MG Oral Tablet CYNDI ([facility]) atorvastatin 20 MG Oral Tablet atorvastatin 20 mg tabl et atorvastatin 20 mg tablet completed atorvastatin 20 MG Oral Tablet CYNDI ([facility]) Prednisone 20 MG Oral Tablet prednisone 20 mg tablet T K 2 TS PO D FOR 4 DAYS prednisone 20 mg tablet TK 2 TS PO D FOR 4 DAYS completed prednisone 20 MG Oral Tablet CYNDI ([facility]) Lisinopril 10 MG Oral Tablet lisinopril 10 mg tablet T K 1 T PO D lisinopril 10 mg tablet TK 1 T PO D completed lisinopril 10 MG Oral Tablet CYNDI ([facility]) Cholecalciferol 2000 UNT Oral Tablet cho lecalciferol (vitamin D3) 50 mcg (2,000 unit) tablet TK ONE T PO D cholecalciferol (vitamin D3) 50 mcg (2,0 00 unit) tablet TK ONE T PO D completed cholecalciferol 0.05 MG Oral Tablet CYNDI ([facility]) atorvastatin 40 MG Oral Tablet atorvastatin 40 mg tabl et atorvastatin 40 mg tablet completed atorvastatin 40 MG Oral Tablet CYNDI ([facility]) atorvastatin 20 MG Oral Tablet atorvastatin 20 mg tabl et atorvastatin 20 mg tablet completed atorvastatin 20 MG Oral Tablet CYNDI ([facility]) Baqsimi 3 mg/actuation nasal spray SPRAY 3MG IN ONE NOSTRIL TO TREAT SEVERE HYPOGLYCEMIA 098380 completed gl ucagon 3 MG Nasal Powder [Baqsimi] CYNDI ([facility]) Ergocalciferol 55014 UNT Oral Capsule er gocalciferol (vitamin D2) 1,250 mcg (50,000 unit) capsule TK 1 C PO 1 TIME A WK FOR 8 WKS ONLY ergocalciferol (vitamin D2) 1,250 mcg (50,000 unit) capsule TK 1 C PO 1 TIME A WK FOR 8 WKS ONLY completed ergocalciferol 1 .25 MG Oral Capsule CYNDI ([facility]) Baqsimi 3 mg/actuation nasal spray SPRAY 3MG IN ONE NOSTRIL TO TREAT SEVERE HYPOGLYCEMIA 854844 completed gl ucagon 3 MG Nasal Powder [Baqsimi] CYNDI ([facility]) Lisinopril 5 MG Oral Tablet lisinopril 5 mg tablet TK 1 T PO QD lisinopril 5 mg tablet TK 1 T PO QD completed li sinopril 5 MG Oral Tablet CYNDI ([facility]) Insurance Providers Payer name Policy type / Coverage type Policy ID Covered green party ID 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 green 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 Policy Laird Plan Information [employer] PL[employer] [id number] SP [id number] [employer] PLUS [id number] SP [id number] [employer] 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 COMP [id number] SP [id number] [place] P[place] 302/307 [id number] SP [id number] WORKER COMP [id number] SP [id number] BCBS GENERIC C [id number] Self MCQM [id number] BCBS GENERIC C [id number] Self MCQM [id number] EXCELLUS BCBS [id number] Sunitha MCQ [id number] Excellus BCYO P [id number] S TRISTON [id number] Excellus BCYO S [id number] S TRISTON [id number] BCBS GENERIC C [id number] Self [id number] [facility] U [id number] Self [id number] [facility] P [id number] S [id number] [employer] [id number] Self [id number] RPR- FFS Self Pay [id number] Self [id number] [place]BS [place] PPO 302/307 [id number] SP [id number] BCBS [employer] [id number] SP [id number] SELF PAY ONLY [id number] SP [id number] SELF PAY ONLY [id number] SP [id number] SELF PAY ONLY - SP1 SP [place] 121/621 [id number] SP [id number] BCBS/Blue Card Commercial [id number] Self [id number] BCBS/Blue Card Commercial [id number] Self [id number] EXCELLUS BCBS B [id number] S MCQ [id number] [facility] [id number] Self [id number] Souqalmal [id number] Self [id number] [place] [id number] SP [id number] Souqalmal [id number] Self Excellus BCBS Health Maintenance Organization (HMO) [id number] Self BS [place] Commercial [id number] Self [place] [id number] SP [id number] BCBS [place] PPO 302/307 [id number] SP [id number] SELF PAY UNAVAILABLE SP UNAVAILA BLE BCBS OF [place] 370/[id number] UNAVAILABLE SP UNAVAILABLE [employer] [place] [id number] SP [id number] MEDICAID [id number] SP [id number] HMO BLUE [id number] SP [id number] HMO BLUE [id number] SP [id number] HMO BLUE [id number] SP [id number] COMPSYCH [id number] SP [id number] [place] [id number] SP [id number] [place] [id number] SP [id number] [place] [facility] [place] O [id number] S [id number] ANSI-Not a Secondary Insurance [id number] [place] [id number] SP [id number] [id number] SP [id number] [facility] [id number] SP [id number] BCBS [id number] SP [id number] BCBS/Blue Card Commercial [id number] Self [id number] ANSI-Commercial [id number] BCBS/Blue Card Commercial [id number] Self [id number] BCBS/Blue Card Commercial [id number] Self [id number] BCBS/Blue Card Commercial [id number] Self [id number] BCBS [facility] [id number] S [facility] [id number] BCBS [id number] SP [id number] Problems, Conditions, and Diagnoses Code Display Name Description Problem Type Effective Dates Data Source(s) 766868491 Anemia Anemia Problem 04/22/2021 12:00:00 AM GIACOMO HANNA ([facility]) [id number] Anemia Anemia Problem 04/22/2021 12:00:00 AM ED T CYNDI ([facility]) 100158249 Anemia Anemia Problem 04/22/2021 12:00:00 AM ED T CYNDI ([facility]) 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 12:00:00 AM EST CYNDI ([facility]) 11145749 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 12:00:00 AM EST CYNDI ([facility]) 83714094 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 12:00:00 AM EST CYNDI ([facility]) 86434194 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 12:00:00 AM EST CYNDI ([facility]) 99155989 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 12:00:00 AM EST CYNDI ([facility]) 98869723 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 12:00:00 AM EST CYNDI ([facility]) 35157339 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 12:00:00 AM EST CYNDI ([facility]) Surgeries/Procedures No Information Results ID Date Data Source [id number] 05/28/2021 09:11:04 AM EDT Health system Name Value Range Interpretation Code Description Data Claribel rce(s) Supporting Document(s) Progress Note [facility] FRMPCe1iZkMGSyQd40/HZWruQMDzm1KpFBfyJGt2OAhyZCTvT5TfAYR6bQ1bKXT7OQbSFtZeYoTpZxB1 [facility] [file] AgICAgICAgICAgICAgICAgICAgICAgICAgICAgICAgICAgICAgICAgICAgICAgICAgICAgICAgICAgIC AgICAgICAgICAgICAgICAgICAgICAgICAgICAgDQogICAgICAgICAgICAgICAgICAgICAgICAgICAgIC AgICAgICAgICAgICAgICAgICAgICAgICAgICAgICAg ICAgICAgICAgICAgICAgICAgICAgICAgICAgICAgICAgICAgICAgDQogICAgICAgICAgICAgICAgICAg ICAgICAgICAgICAgICAgICAgICAgICAgICAgICAgICAgICAgICAgICAgICAgICAgICAgICAgICAgICAg ICAgICAgICAgICAgICAgICAgICAgDQogICAgICAgIC AgICAgICAgICAgICAgICAgICAgICAgICAgICAgICAgICAgICAgICAgICAgICAgICAgICAgICAgICAgIC AgICAgICAgICAgICAgICAgICAgICAgICAgICAgICAgDQogICAgICAgICAgICAgICAgICAgICAgICAgIC AgICAgICAgICAgICAgICAgICAgICAgICAgICAgICAg ICAgICAgICAgICAgICAgICAgICAgICAgICAgICAgICAgICAgICAgICAgDQogICAgICAgICAgICAgICAg ICAgICAgICAgICAgICAgICAgICAgICAgICAgICAgICAgICAgICAgICAgICAgICAgICAgICAgICAgICAg ICAgICAgICAgICAgICAgICAgICAgICAgDQogICAgIC AgICAgICAgICAgICAgICAgICAgICAgICAgICAgICAgICAgICAgICAgICAgICAgICAgICAgICAgICAgIC AgICAgICAgICAgICAgICAgICAgICAgICAgICAgICAgICAgDQogICAgICAgICAgICAgICAgICAgICAgIC AgICAgICAgICAgICAgICAgICAgICAgICAgICAgICAg ICAgICAgICAgICAgICAgICAgICAgICAgICAgICAgICAgICAgICAgICAgICAgDQogICAgICAgICAgICAg ICAgICAgICAgICAgICAgICAgICAgICAgICAgICAgICAgICAgICAgICAgICAgICAgICAgICAgICAgICAg ICAgICAgICAgICAgICAgICAgICAgICAgICAgDQogIC AgICAgICAgICAgICAgICAgICAgICAgICAgICAgICAgICAgICAgICAgICAgICAgICAgICAgICAgICAgIC OfFZPvAGWfYSLbEUGlALVcCKKkBDIwVMWsWVVfDEKgUNFyOBQwSXt7P0urXAEyJLKuMM8pJVs0Wu5+DQ nPIxQxWEK4fuSgbE1MZA6qn7ChCZigNUGro5KvHSc9 TV2IMJEpDVgqOY4XBHjsot0GJLYvENUhwTVXu7mfUsQaMLO2OOVbUsfcCM5MNPKcN1rjvpJzCMWvDLVV YZizJAJOLLohSCDVMUVnCPNsGsGzAjVhLNVhYVUcDCPWQFW7SVYxYyFcJKyaAE3Mh1RjfQS8BQj+Pg0K BV9ux4TwRCwgGGIhTX5bor6EVTdRDbDlW3EsrhU0ZQ NzUGQgVf4TTIHpUOTccIHjScJxIYJHCqWtR6XjoA83OWAGOb4+FHxpqaFgGimEEzCvOUNbf2KqCZt4NR 9TPLCoWTb6eJIcKHCoU6Hik3PhGb23EQLnRacfWVTjjLPiuZPmBwDKWRShfY0xxQ8dSGZEXKOygET4Mi W3IeOtPkFfJAa3EmPcCW2zYOmuFR4WFKL5AKfkRHDy UCYlK7gACyEsUSAvKfUrxXiuOJ0UAeYqS0RcbqSncCHlODGjFTYRLt4+FUrffyHoTucOTqVlOLTjw2Dx FZl7VJ9THNOnGOgtZH7QKXLxdL8oTYisLQ0YOfImAIYpKDVTCiWvR36lnDBcEKd4H2LkXaIsDSZrGgxd ZXMgPDwvTmFtZXMgWyBdDQogID4+ID4+KBzbIF6VPJ qetmCyRIKeSi2TVREmOMElCS3wPWYlPSQqL7D7tWpiHVGZCtNqB0iwdjjdYF5bACFaV267oYsctiQdJX NwELNeBq1KWDIpHOP7AWKsbSWfDvQxDUSTPMvzXQ5LvAGnQJC9uV0iHLemSSIiNASfS1pHZvBcyZsmXX 51bGwgbnVsbCBdDQo+Kb2FRN5rc3BqEQp3nnLqWQqw DSO3BDyiKGJyGPIkJZZmSWU9OYB3ZZNRFoBzTNFyMRJfSSnaVTHqRMVtzw8RNKKbLFKpVlH2UCPoCTBu JLIuKYzeJCVfOJY6DaxvZYAqDBJlND4QEmYuCVTxMHRyYUqbSVIdSAUpfe7HMCRfPVCcUSR2JlSyZOUl HUXfPLjcSTVuBGM2HtLmYESjPFEfWQ4FRyAgJAEjPW kwYoczDLUrBACugq9LQEDnWUMeEKCoAzWkYJJqQZHzBYgrGNRhNTCxQnK1BRVvTMWoXG6BKfEvXZRgWK K4MzSmDGLbGULcmz7EEJUhFVYuZMM5PtYkUXFoBQVjDTcxXPIrDUL1OaxxIDTkWSPzYS2OHpKvRZCmZC mmBQSlISPeLLJugu8FFGDoJBWmSrV5JBEwQRGwTPWt KXdaMJFbWTYsGgJlNIWsRJTtNL9SVkNdGSRiSjM7RfogUGHsBYXkxf3NUEViBQJxSpZ2QIFxFZYeLNYp CZtpZMTqZSTgUWjvLHSwGXHmXY2GLxAhPFTyRpW4THIcPIHtZCMvcl8DGJAqUSEpFwy8UtSsCQDmIFYi QJoiRPTpNFHsOHOqMYDuHBRvIU2PDeOzIJYhKfR3NH mzVPZhPEGcpb1KPQYsQAZyKOI4IAOkUIMiPNPoTHnhOEJwZSM7Jvh1MNLwIRNzGG6DNnReYRXlEqP8KY tkNJQfQQUebx9PJQPeUUFeBsLbGMTeJRFgTTVdPNviGYFlRMQ8IpBrCBMfJMTqXC5XKyZzAHUpCmh2MS QbEHXjGAJgii8OQGNzDWEiMxCmNDRfJSRcVJIcXJbd XAIcMCV1AEMySFVkNCAoHV3XDiQgMDQkMef1PVzwEHNtQRPlmu3UXLFnFHYiXIK0RPKvIAGdFLIrEBle VNMpGNH4PiX5RNMyPQFoOW1UEtFdLVxlQDICKon4USltT6j2CZHlYA1BR4Odl1KaAfBhASICZQbqVB6o klLuGTBqBz5AJ8zGMwznEsZsGBK2RVTjQbG3XGLgXP YeBzXmYVX7AEHsUWSuKD3nNXQ7EHB2JZT3RACwBzQ5JFDfPBRxH7L2Cnt5ATD6WDVfAiIbER0GOj0CFv Y1EMU4xMNcXm2DGnc5NVkAOnEzHD6CNKg= ID Date Data Source [id number] 05/28/2021 09:10:59 AM EDT Health system Name Value Range Interpretation Code Description Data Claribel rce(s) Supporting Document(s) Progress Note [facility] ZVMYHx1zXwTPWrWy06/SXJvhRXSci6KaQIdlNYq7LTdqVKMhD8NbUFO5fL9aLPK1YDiDRkPxMzCgZoL7 lbm [file] [id number]+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 [file] [id number]== ID Date Data Source [id number] 05/07/2021 08:53:00 AM EDT [facility]) Name Value Range Interpretation Code Description Data Claribel rce(s) Supporting Document(s) Hemoglobin A1c/Hemoglobin.total in Blood 8.7 %_of_total_HGB <5.7 Above high normal Hemoglobin a1C CYNDI ([facility]) ID Date Data Source [id number] 05/07/2021 08:53:00 AM EDT [facility]) Name Value Range Interpretation Code Description Data Claribel rce(s) Supporting Document(s) Leukocytes [#/volume] in Blood by Automated count 5.2 thousand/uL 3 .8-10.8 White Blood Cell Count CYNDI ([facility]) Erythrocytes [#/volume] in Blood by Automated count 3.84 million/uL 3.80-5.10 Red Blood Cell Count CYNDI ([facility]) Hemoglobin [Mass/volume] in Blood 11.3 g/dL 11.7-15.5 Below l ow normal Hemoglobin CYNDI ([facility]) Hematocrit [Volume Fraction] of Blood by Automated count 33.0 % 35.0-45.0 Below low normal Hematocrit CYNDI ([facility]) Erythrocyte mean corpuscular volume [Entitic volume] by Auto mated count 85.9 fL 80.0-100.0 Mcv CYNDI ([facility]) Erythrocyte mean corpuscular hemoglobin [Entitic mass] by Automated count 29.4 pg 27.0-33.0 Mch CYNDI ([facility]) Erythrocyte mean corpuscular hemoglobin concentration [Mass/volume] by Automated count 34.2 g/dL 32.0-36.0 Mchc CYNDI ([facility]) Erythrocyte distribution width [Ratio] by Automated count 12.7 % 11.0-15.0 Rdw CYNDI ([facility]) Platelets [#/volume] in Blood by Automated count 262 thousand/uL 14 0-400 Platelet Count CYNDI ([facility]) Platelet mean volume [Entitic volume] in Blood by Jonn-Laar 10.0 f L 7.5-12.5 Mpv CYNDI ([facility]) Neutrophils [#/volume] in Blood by Automated count 3052 cells/uL 15 00-7800 Absolute Neutrophils CYNDI ([facility]) Lymphocytes [#/volume] in Blood by Automated count 1758 cells/uL 85 0-3900 Absolute Lymphocytes CYNDI ([facility]) Monocytes [#/volume] in Blood by Automated count 328 cells/uL 200-9 50 Absolute Monocytes CYNDI ([facility]) Eosinophils [#/volume] in Blood by Automated count 21 cells/uL 15- 500 Absolute Eosinophils CYNDI ([facility]) Basophils [#/volume] in Blood by Automated count 42 cells/uL 0-200 Absolute Basophils CYNDI ([facility]) Neutrophils/100 leukocytes in Blood by Automated count 58.7 % 38-80 Neutrophils CYNDI ([facility]) Lymphocytes/100 leukocytes in Blood by Automated count 33.8 % 15-49 Lymphocytes CYNDI ([facility]) Monocytes/100 leukocytes in Blood by Automated count 6.3 % 0-13 Monocytes CYNDI ([facility]) Eosinophils/100 leukocytes in Blood by Automated count 0.4 % 0-8 Eosinophils CYNDI ([facility]) Basophils/100 leukocytes in Blood by Automated count 0.8 % 0-2 Basophils CYNDI ([facility]) ID Date Data Source [id number] 05/07/2021 08:53:00 AM EDT ARMSTRONG ([facility]) Name Value Range Interpretation Code Description Data Claribel rce(s) Supporting Document(s) Glucose [Mass/volume] in Serum or Plasma 153 mg/dL 65-99 Above high normal Glucose [facility] ([facility]) Urea nitrogen [Mass/volume] in Serum or Plasma 18 mg/dL 7-25 Urea Nitrogen (BUN) [facility] ([facility]) Creatinine [Mass/volume] in Serum or Plasma 0.88 mg/dL 0.50-1.10 Creatinine [facility] ([facility]) Glomerular filtration rate/1.73 sq M.pre dicted among non-blacks [Volume Rate/Area] in Serum, Plasma or Blood by Creatinine-based formula (CKD-EPI) 86 mL/min/1.73m2 > or = 60 eGFR Non-afr. [place] CYNDI ([facility]) Glomerular filtration rate/1.73 sq M.pre dicted among blacks [Volume Rate/Area] in Serum, Plasma or Blood by Creatinine-based formula (CKD-EPI) 100 mL/min/1.73m2 > or = 60 eGFR [facility]NDI ([facility]) Urea nitrogen/Creatinine [Mass Ratio] in Serum or Plasma not applic able 6-22 BUN/creatinine Ratio [facility] ([facility]) Sodium [Moles/volume] in Serum or Plasma 139 mmol/L 135-146 Sodium [facility] ([facility]) Potassium [Moles/volume] in Serum or Plasma 3.9 mmol/L 3.5-5.3 Potassium [facility]NDI ([facility]) Chloride [Moles/volume] in Serum or Plasma 105 mmol/L 98-110 Chloride ARMSTRONG ([facility]) Carbon dioxide, total [Moles/volume] in Serum or Plasma 28 mmol/L 20-32 Carbon Dioxide [facility]) Calcium [Mass/volume] in Serum or Plasma 9.4 mg/dL 8.6-10.2 Calcium ARMSTRONG ([facility]) Protein [Mass/volume] in Serum or Plasma 6.4 g/dL 6.1-8.1 Protein, Total CYNDI ([facility]) Albumin [Mass/volume] in Serum or Plasma 3.7 g/dL 3.6-5.1 Albumin ARMSTRONG ([facility]) Globulin [Mass/volume] in Serum by calculation 2.7 g/dL_(calc) 1.9- 3.7 Globulin CYNDI ([facility]) Albumin/Globulin [Mass Ratio] in Serum or Plasma 1.4 (calc) 1.0-2 .5 Albumin/globulin Ratio ARMSTRONG ([facility]) Bilirubin.total [Mass/volume] in Serum or Plasma 0.3 mg/dL 0.2-1 .2 Bilirubin, Total ARMSTRONG ([facility]) Alkaline phosphatase [Enzymatic activity/volume] in Serum or Plasma 52 U/L 31-125 Alkaline Phosphatase CYNDI ([facility]) Aspartate aminotransferase [Enzymatic activity/volume] in Serum or Plasma 13 U/L 10-30 Ast ARMSTRONG ([facility]) Alanine aminotransferase [Enzymatic activity/volume] in Seru m or Plasma 10 U/L 6-29 Alt CYNDI ([facility]) ID Date Data Source [id number] 05/07/2021 08:53:00 AM EDT ARMSTRONG ([facility]) Name Value Range Interpretation Code Description Data Claribel rce(s) Supporting Document(s) Triiodothyronine resin uptake (T3RU) in Serum or Plasma 30 % 22 -35 T3 Uptake ARMSTRONG ([facility]) Thyroxine (T4) [Mass/volume] in Serum or Plasma 7.6 mcg/dL 5.1-11 .9 T4 (Thyroxine), Total ARMSTRONG ([facility]) Thyroxine (T4) free index in Serum or Plasma by calculation 1.4-3.8 Free T4 Index (T7) ARMSTRONG ([facility]) Thyrotropin [Units/volume] in Serum or Plasma 2.45 mIU/L Tsh [facility]) ID Date Data Source [id number] 05/07/2021 08:53:00 AM EDT CYNDI ([facility]) Name Value Range Interpretation Code Description Data Claribel rce(s) Supporting Document(s) Triglyceride [Mass/volume] in Serum or Plasma 111 mg/dL <150 Triglycerides CYNDI ([facility]) Cholesterol [Mass/volume] in Serum or Plasma 198 mg/dL <200 Cholesterol, Total CYDNI ([facility]) Cholesterol in HDL [Mass/volume] in Serum or Plasma 48 mg/dL > or = 50 Below low normal HDL Cholesterol CYNDI ([facility]) Cholesterol in LDL [Mass/volume] in Serum or Plasma by calculation 128 mg/dL_(calc) Above high normal LDL-cholesterol CYNDI ([facility]) Cholesterol.total/Cholesterol in HDL [Mass Ratio] in Serum o r Plasma 4.1 (calc) <5.0 Chol/hdlc Ratio CYNDI ([facility]) Cholesterol non HDL [Mass/volume] in Serum or Plasma 150 mg/dL_( calc) <130 Above high normal Non HDL Cholesterol CYNDI ([facility]) ID Date Data Source [id number] 05/07/2021 08:53:00 AM EDT CYNDI ([facility]) Name Value Range Interpretation Code Description Data Claribel rce(s) Supporting Document(s) Iron [Mass/volume] in Serum or Plasma 40 mcg/dL 40-190 Iron, Total CYNDI ([facility]) Iron binding capacity [Mass/volume] in Serum or Plasma 311 m cg/dL_(calc) 250-450 Iron Binding Capacity CYNDI ([facility]) Iron saturation [Mass Fraction] in Serum or Plasma 13 %_(calc) 16-45 Below low normal % Saturation CYNDI ([facility]) Ferritin [Mass/volume] in Serum or Plasma 48 NG/mL 16-154 Ferritin CYNDI ([facility]) ID Date Data Source [id number] 04/02/2021 08:10:00 AM [facility] Name Value Range Interpretation Code Description Data Claribel rce(s) Supporting Document(s) bedside glucose 78 mg/dL 70-105 Bedside Glucose ATHJuan Carlos MCKEON ([facility]) ID Date Data Source [id number] 04/02/2021 08:10:00 AM EDT [facility]) Name Value Range Interpretation Code Description Data Claribel rce(s) Supporting Document(s) bedside glucose 78 mg/dL 70-105 Bedside Glucose ATHJuan Carlos MCKEON ([facility]) ID Date Data Source [id number] 04/02/2021 08:10:00 AM EDT CYNDI ([facility]) Name Value Range Interpretation Code Description Data Claribel rce(s) Supporting Document(s) bedside glucose 78 mg/dL 70-105 Bedside Glucose ATHJuan Carlos MCKEON ([facility]) ID Date Data Source [id number] 04/02/2021 05:24:00 AM EDT ARMSTRONG ([facility]) Name Value Range Interpretation Code Description Data Claribel rce(s) Supporting Document(s) glucose, fasting 50 mg/dL 70-100 Below low normal Glucose, Fast ing ARMSTRONG ([facility]) blood urea nitrogen 9 mg/dL 7-18 Blood Urea Nitro gen ARMSTRONG ([facility]) creatinine for GFR 0.62 mg/dL 0.55-1.30 Creatinine for GF R ARMSTRONG ([facility]) glomerular filtration rate > 60.0 >60 Glomerula r Filtration Rate ARMSTRONG ([facility]) sodium level 143 mEq/L 136-145 Sodium Level ARMSTRONG ([facility]) potassium serum 3.2 mEq/L 3.5-5.1 Below low normal Potassium Seru m ARMSTRONG ([facility]) chloride level 112 mEq/L 98-107 Above high normal Chloride Level ARMSTRONG ([facility]) carbon dioxide level 28 mEq/L 21-32 Carbon Dioxide Level ARMSTRONG ([facility]) anion gap 3 mEq/L 8-16 Below low normal Anion Gap ARMSTRONG ( [facility]) calcium level 8.5 mg/dL 8.5-10.1 Calcium Level ARMSTRONG ( [facility]) ID Date Data Source [id number] 04/02/2021 05:24:00 AM EDT ARMSTRONG ([facility]) Name Value Range Interpretation Code Description Data Claribel rce(s) Supporting Document(s) white blood count 3.1 10 4.0-10.0 Below low normal White Blood Count ARMSTRONG ([facility]) red blood count 3.63 10 4.00-5.40 Below low normal Red Blood Coun t ARMSTRONG ([facility]) hemoglobin 10.8 g/dL 12.0-15.5 Below low normal Hemoglobin ARMSTRONG ( [facility]) hematocrit 31.8 % 36.0-47.0 Below low normal Hematocrit ARMSTRONG ( [facility]) mean corpuscular volume 87.6 fL 80.0-96.0 Mean Corpusc ular Volume ARMSTRONG ([facility]) mean corpuscular hemoglobin 29.8 pg 27.0-33.0 Mean Cor puscular Hemoglobin ARMSTRONG ([facility]) mean corpuscular HGB conc 34.0 g/dL 32.0-36.5 Mean Corpu scular HGB Conc ARMSTRONG ([facility]) red cell distribution width 11.9 % 11.5-14.5 Red Cell Distribution Width ARMSTRONG ([facility]) platelet count, automated 196 10 150-450 Platelet C ount, Automated ARMSTRONG ([facility]) nucleated red blood cell % 0.0 % 0-0 Nucleated Red Blood Cell % ARMSTRONG ([facility]) ID Date Data Source [id number] 04/02/2021 05:24:00 AM EDT [facility]) Name Value Range Interpretation Code Description Data Claribel rce(s) Supporting Document(s) glucose, fasting 50 mg/dL 70-100 Below low normal Glucose, Fast ing ARMSTRONG ([facility]) blood urea nitrogen 9 mg/dL 7-18 Blood Urea Nitro gen ARMSTRONG ([facility]) creatinine for GFR 0.62 mg/dL 0.55-1.30 Creatinine for GF R CYNDI ([facility]) glomerular filtration rate > 60.0 >60 Glomerula r Filtration Rate CYNDI ([facility]) sodium level 143 mEq/L 136-145 Sodium Level CYNDI ([facility]) potassium serum 3.2 mEq/L 3.5-5.1 Below low normal Potassium Seru m CYNDI ([facility]) chloride level 112 mEq/L 98-107 Above high normal Chloride Level ARMSTRONG ([facility]) carbon dioxide level 28 mEq/L 21-32 Carbon Dioxide Level ARMSTRONG ([facility]) anion gap 3 mEq/L 8-16 Below low normal Anion Gap ARMSTRONG ( [facility]) calcium level 8.5 mg/dL 8.5-10.1 Calcium Level ARMSTRONG ( [facility]) ID Date Data Source [id number] 04/02/2021 05:24:00 AM EDT [facility]) Name Value Range Interpretation Code Description Data Claribel rce(s) Supporting Document(s) white blood count 3.1 10 4.0-10.0 Below low normal White Blood Count ARMSTRONG ([facility]) red blood count 3.63 10 4.00-5.40 Below low normal Red Blood Coun t [facility]) hemoglobin 10.8 g/dL 12.0-15.5 Below low normal Hemoglobin [facility]) hematocrit 31.8 % 36.0-47.0 Below low normal Hematocrit ARMSTRONG ( [facility]) mean corpuscular volume 87.6 fL 80.0-96.0 Mean Corpusc ular Volume ARMSTRONG ([facility]) mean corpuscular hemoglobin 29.8 pg 27.0-33.0 Mean Cor puscular Hemoglobin ARMSTRONG ([facility]) mean corpuscular HGB conc 34.0 g/dL 32.0-36.5 Mean Corpu scular HGB Conc ARMSTRONG ([facility]) red cell distribution width 11.9 % 11.5-14.5 Red Cell Distribution Width ARMSTRONG ([facility]) platelet count, automated 196 10 150-450 Platelet C ount, Automated ARMSTRONG ([facility]) nucleated red blood cell % 0.0 % 0-0 Nucleated Red Blood Cell % ARMSTRONG ([facility]) ID Date Data Source [id number] 04/02/2021 05:24:00 AM EDT ARMSTRONG ([facility]) Name Value Range Interpretation Code Description Data Claribel rce(s) Supporting Document(s) glucose, fasting 50 mg/dL 70-100 Below low normal Glucose, Fast ing ARMSTRONG ([facility]) blood urea nitrogen 9 mg/dL 7-18 Blood Urea Nitro gen ARMSTRONG ([facility]) creatinine for GFR 0.62 mg/dL 0.55-1.30 Creatinine for GF R ARMSTRONG ([facility]) glomerular filtration rate > 60.0 >60 Glomerula r Filtration Rate ARMSTRONG ([facility]) sodium level 143 mEq/L 136-145 Sodium Level ARMSTRONG ([facility]) potassium serum 3.2 mEq/L 3.5-5.1 Below low normal Potassium Seru m ARMSTRONG ([facility]) chloride level 112 mEq/L 98-107 Above high normal Chloride Level ARMSTRONG ([facility]) carbon dioxide level 28 mEq/L 21-32 Carbon Dioxide Level [facility]) anion gap 3 mEq/L 8-16 Below low normal Anion Gap ARMSTRONG ( [facility]) calcium level 8.5 mg/dL 8.5-10.1 Calcium Level ARMSTRONG ( [facility]) ID Date Data Source [id number] 04/02/2021 05:24:00 AM EDT ARMSTRONG ([facility]) Name Value Range Interpretation Code Description Data Claribel rce(s) Supporting Document(s) white blood count 3.1 10 4.0-10.0 Below low normal White Blood Count ARMSTRONG ([facility]) red blood count 3.63 10 4.00-5.40 Below low normal Red Blood Coun t ARMSTRONG ([facility]) hemoglobin 10.8 g/dL 12.0-15.5 Below low normal Hemoglobin ARMSTRONG ( [facility]) hematocrit 31.8 % 36.0-47.0 Below low normal Hematocrit CYNDI ( [facility]) mean corpuscular volume 87.6 fL 80.0-96.0 Mean Corpusc ular Volume ARMSTRONG ([facility]) mean corpuscular hemoglobin 29.8 pg 27.0-33.0 Mean Cor puscular Hemoglobin CYNDI ([facility]) mean corpuscular HGB conc 34.0 g/dL 32.0-36.5 Mean Corpu scular HGB Conc CYNDI ([facility]) red cell distribution width 11.9 % 11.5-14.5 Red Cell Distribution Width CYNDI ([facility]) platelet count, automated 196 10 150-450 Platelet C ount, Automated CYNDI ([facility]) nucleated red blood cell % 0.0 % 0-0 Nucleated Red Blood Cell % ARMSTRONG ([facility]) ID Date Data Source [id number] 04/01/2021 08:39:00 PM EDT [facility]) Name Value Range Interpretation Code Description Data Claribel rce(s) Supporting Document(s) bedside glucose 155 mg/dL 70-105 Above high normal Bedside Gluco se [facility]) ID Date Data Source [id number] 04/01/2021 08:39:00 PM EDT [facility]) Name Value Range Interpretation Code Description Data Claribel rce(s) Supporting Document(s) bedside glucose 155 mg/dL 70-105 Above high normal Bedside Gluco se [facility]) ID Date Data Source [id number] 04/01/2021 08:39:00 PM EDT [facility]) Name Value Range Interpretation Code Description Data Claribel rce(s) Supporting Document(s) bedside glucose 155 mg/dL 70-105 Above high normal Bedside Gluco se [facility]) ID Date Data Source [id number] 04/01/2021 04:57:00 PM [facility] Name Value Range Interpretation Code Description Data Claribel rce(s) Supporting Document(s) bedside glucose 91 mg/dL 70-105 Bedside Glucose ATHJuan Carlos MCKEON ([facility]) ID Date Data Source [id number] 04/01/2021 04:57:00 PM EDT CYNDI ([facility]) Name Value Range Interpretation Code Description Data Claribel rce(s) Supporting Document(s) bedside glucose 91 mg/dL 70-105 Bedside Glucose ATHE LINDA ([facility]) ID Date Data Source [id number] 04/01/2021 04:57:00 PM EDT [facility]) Name Value Range Interpretation Code Description Data Claribel rce(s) Supporting Document(s) bedside glucose 91 mg/dL 70-105 Bedside Glucose ATHE LINDA ([facility]) ID Date Data Source [id number] 04/01/2021 11:45:00 AM EDT [facility]) Name Value Range Interpretation Code Description Data Claribel rce(s) Supporting Document(s) bedside glucose 171 mg/dL 70-105 Above high normal Bedside Gluco se [facility]) ID Date Data Source [id number] 04/01/2021 11:45:00 AM EDT [facility]) Name Value Range Interpretation Code Description Data Claribel rce(s) Supporting Document(s) bedside glucose 171 mg/dL 70-105 Above high normal Bedside Gluco se [facility]) ID Date Data Source [id number] 04/01/2021 11:45:00 AM EDT [facility]) Name Value Range Interpretation Code Description Data Claribel rce(s) Supporting Document(s) bedside glucose 171 mg/dL 70-105 Above high normal Bedside Gluco se CYNDI ([facility]) ID Date Data Source [id number] 04/01/2021 06:09:00 AM EDT ARMSTRONG ([facility]) Name Value Range Interpretation Code Description Data Claribel rce(s) Supporting Document(s) glucose, fasting 71 mg/dL 70-100 Glucose, Fasting AT BELIA ([facility]) blood urea nitrogen 9 mg/dL 7-18 Blood Urea Nitro gen ARMSTRONG ([facility]) creatinine for GFR 0.74 mg/dL 0.55-1.30 Creatinine for GF R ARMSTRONG ([facility]) glomerular filtration rate > 60.0 >60 Glomerula r Filtration Rate CYNDI ([facility]) sodium level 146 mEq/L 136-145 Above high normal Sodium Level ATH NIKOLAS ([facility]) potassium serum 3.6 mEq/L 3.5-5.1 Potassium Serum ATHE NA ([facility]) chloride level 115 mEq/L 98-107 Above high normal Chloride Level CYNDI ([facility]) carbon dioxide level 26 mEq/L 21-32 Carbon Dioxide Level ARMSTRONG ([facility]) anion gap 5 mEq/L 8-16 Below low normal Anion Gap CYNDI ( [facility]) calcium level 9.6 mg/dL 8.5-10.1 Calcium Level ARMSTRONG ( [facility]) ID Date Data Source [id number] 04/01/2021 06:09:00 AM EDT ARMSTRONG ([facility]) Name Value Range Interpretation Code Description Data Claribel rce(s) Supporting Document(s) white blood count 4.1 10 4.0-10.0 White Blood Count CYNDI ([facility]) red blood count 3.92 10 4.00-5.40 Below low normal Red Blood Coun t ARMSTRONG ([facility]) hemoglobin 11.5 g/dL 12.0-15.5 Below low normal Hemoglobin ARMSTRONG ( [facility]) hematocrit 34.3 % 36.0-47.0 Below low normal Hematocrit CYNDI ( [facility]) mean corpuscular volume 87.5 fL 80.0-96.0 Mean Corpusc ular Volume ARMSTRONG ([facility]) mean corpuscular hemoglobin 29.3 pg 27.0-33.0 Mean Cor puscular Hemoglobin CYNDI ([facility]) mean corpuscular HGB conc 33.5 g/dL 32.0-36.5 Mean Corpu scular HGB Conc ARMSTRONG ([facility]) red cell distribution width 12.2 % 11.5-14.5 Red Cell Distribution Width CYNDI ([facility]) platelet count, automated 205 10 150-450 Platelet C ount, Automated ARMSTRONG ([facility]) nucleated red blood cell % 0.0 % 0-0 Nucleated Red Blood Cell % ARMSTRONG ([facility]) ID Date Data Source [id number] 04/01/2021 06:09:00 AM EDT ARMSTRONG ([facility]) Name Value Range Interpretation Code Description Data Claribel rce(s) Supporting Document(s) glucose, fasting 71 mg/dL 70-100 Glucose, Fasting AT [facility]) blood urea nitrogen 9 mg/dL 7-18 Blood Urea Nitro gen ARMSTRONG ([facility]) creatinine for GFR 0.74 mg/dL 0.55-1.30 Creatinine for GF R ARMSTRONG ([facility]) glomerular filtration rate > 60.0 >60 Glomerula r Filtration Rate CYNDI ([facility]) sodium level 146 mEq/L 136-145 Above high normal Sodium Level ATH NIKOLAS ([facility]) potassium serum 3.6 mEq/L 3.5-5.1 Potassium Serum ATH NA ([facility]) chloride level 115 mEq/L 98-107 Above high normal Chloride Level CYNDI ([facility]) carbon dioxide level 26 mEq/L 21-32 Carbon Dioxide Level ARMSTRONG ([facility]) anion gap 5 mEq/L 8-16 Below low normal Anion Gap ARMSTRONG ( [facility]) calcium level 9.6 mg/dL 8.5-10.1 Calcium Level ARMSTRONG ( [facility]) ID Date Data Source [id number] 04/01/2021 06:09:00 AM EDT ARMSTRONG ([facility]) Name Value Range Interpretation Code Description Data Claribel rce(s) Supporting Document(s) white blood count 4.1 10 4.0-10.0 White Blood Count ARMSTRONG ([facility]) red blood count 3.92 10 4.00-5.40 Below low normal Red Blood Coun t ARMSTRONG ([facility]) hemoglobin 11.5 g/dL 12.0-15.5 Below low normal Hemoglobin ARMSTRONG ( [facility]) hematocrit 34.3 % 36.0-47.0 Below low normal Hematocrit ARMSTRONG ( [facility]) mean corpuscular volume 87.5 fL 80.0-96.0 Mean Corpusc ular Volume ARMSTRONG ([facility]) mean corpuscular hemoglobin 29.3 pg 27.0-33.0 Mean Cor puscular Hemoglobin ARMSTRONG ([facility]) mean corpuscular HGB conc 33.5 g/dL 32.0-36.5 Mean Corpu scular HGB Conc ARMSTRONG ([facility]) red cell distribution width 12.2 % 11.5-14.5 Red Cell Distribution Width ARMSTRONG ([facility]) platelet count, automated 205 10 150-450 Platelet C ount, Automated ARMSTRONG ([facility]) nucleated red blood cell % 0.0 % 0-0 Nucleated Red Blood Cell % ARMSTRONG ([facility]) ID Date Data Source [id number] 04/01/2021 06:09:00 AM EDT ARMSTRONG ([facility]) Name Value Range Interpretation Code Description Data Claribel rce(s) Supporting Document(s) glucose, fasting 71 mg/dL 70-100 Glucose, Fasting AT [facility] ([facility]) blood urea nitrogen 9 mg/dL 7-18 Blood Urea Nitro gen ARMSTRONG ([facility]) creatinine for GFR 0.74 mg/dL 0.55-1.30 Creatinine for GF R CYNDI ([facility]) glomerular filtration rate > 60.0 >60 Glomerula r Filtration Rate CYNDI ([facility]) sodium level 146 mEq/L 136-145 Above high normal Sodium Level ATH NIKOLAS ([facility]) potassium serum 3.6 mEq/L 3.5-5.1 Potassium Serum ATHE NA ([facility]) chloride level 115 mEq/L 98-107 Above high normal Chloride Level CYNDI ([facility]) carbon dioxide level 26 mEq/L 21-32 Carbon Dioxide Level CYNDI ([facility]) anion gap 5 mEq/L 8-16 Below low normal Anion Gap CYNDI ( [facility]) calcium level 9.6 mg/dL 8.5-10.1 Calcium Level ARMSTRONG ( [facility]) ID Date Data Source [id number] 04/01/2021 06:09:00 AM EDT ARMSTRONG ([facility]) Name Value Range Interpretation Code Description Data Claribel rce(s) Supporting Document(s) white blood count 4.1 10 4.0-10.0 White Blood Count CYNDI ([facility]) red blood count 3.92 10 4.00-5.40 Below low normal Red Blood Coun t CYNDI ([facility]) hemoglobin 11.5 g/dL 12.0-15.5 Below low normal Hemoglobin CYNDI ( [facility]) hematocrit 34.3 % 36.0-47.0 Below low normal Hematocrit CYNDI ( [facility]) mean corpuscular volume 87.5 fL 80.0-96.0 Mean Corpusc ular Volume CYNDI ([facility]) mean corpuscular hemoglobin 29.3 pg 27.0-33.0 Mean Cor puscular Hemoglobin CYNDI ([facility]) mean corpuscular HGB conc 33.5 g/dL 32.0-36.5 Mean Corpu scular HGB Conc CYNDI ([facility]) red cell distribution width 12.2 % 11.5-14.5 Red Cell Distribution Width CYNDI ([facility]) platelet count, automated 205 10 150-450 Platelet C ount, Automated CYNDI ([facility]) nucleated red blood cell % 0.0 % 0-0 Nucleated Red Blood Cell % ARMSTRONG ([facility]) ID Date Data Source [id number] 03/31/2021 08:42:00 PM EDT [facility]) Name Value Range Interpretation Code Description Data Claribel rce(s) Supporting Document(s) bedside glucose 182 mg/dL 70-105 Above high normal Bedside Gluco se [facility]) ID Date Data Source [id number] 03/31/2021 08:42:00 PM EDT [facility]) Name Value Range Interpretation Code Description Data Claribel rce(s) Supporting Document(s) bedside glucose 182 mg/dL 70-105 Above high normal Bedside Gluco se [facility]) ID Date Data Source [id number] 03/31/2021 08:42:00 PM EDT [facility]) Name Value Range Interpretation Code Description Data Claribel rce(s) Supporting Document(s) bedside glucose 182 mg/dL 70-105 Above high normal Bedside Gluco se [facility]) ID Date Data Source [id number] 03/31/2021 04:45:00 PM EDT [facility]) Name Value Range Interpretation Code Description Data Claribel rce(s) Supporting Document(s) bedside glucose 166 mg/dL 70-105 Above high normal Bedside Gluco se [facility]) ID Date Data Source [id number] 03/31/2021 04:45:00 PM EDT [facility]) Name Value Range Interpretation Code Description Data Claribel rce(s) Supporting Document(s) bedside glucose 166 mg/dL 70-105 Above high normal Bedside Gluco se [facility]) ID Date Data Source [id number] 03/31/2021 04:45:00 PM EDT [facility]) Name Value Range Interpretation Code Description Data Claribel rce(s) Supporting Document(s) bedside glucose 166 mg/dL 70-105 Above high normal Bedside Gluco se [facility] ([facility]) ID Date Data Source [id number] 03/31/2021 11:55:00 AM EDT [facility]) Name Value Range Interpretation Code Description Data Claribel rce(s) Supporting Document(s) bedside glucose 256 mg/dL 70-105 Above high normal Bedside Gluco se [facility] ([facility]) ID Date Data Source [id number] 03/31/2021 11:55:00 AM EDT [facility]) Name Value Range Interpretation Code Description Data Claribel rce(s) Supporting Document(s) bedside glucose 256 mg/dL 70-105 Above high normal Bedside Gluco se [facility] ([facility]) ID Date Data Source [id number] 03/31/2021 11:55:00 AM EDT [facility]) Name Value Range Interpretation Code Description Data Claribel rce(s) Supporting Document(s) bedside glucose 256 mg/dL 70-105 Above high normal Bedside Gluco se [facility] ([facility]) ID Date Data Source [id number] 03/31/2021 06:54:00 AM EDT [facility]) Name Value Range Interpretation Code Description Data Claribel rce(s) Supporting Document(s) bedside glucose 154 mg/dL 70-105 Above high normal Bedside Gluco se [facility]) ID Date Data Source [id number] 03/31/2021 06:54:00 AM EDT [facility]) Name Value Range Interpretation Code Description Data Claribel rce(s) Supporting Document(s) bedside glucose 154 mg/dL 70-105 Above high normal Bedside Gluco se [facility] ([facility]) ID Date Data Source [id number] 03/31/2021 06:54:00 AM EDT [facility]) Name Value Range Interpretation Code Description Data Claribel rce(s) Supporting Document(s) bedside glucose 154 mg/dL 70-105 Above high normal Bedside Gluco se [facility]) ID Date Data Source [id number] 03/31/2021 06:04:00 AM EDT [facility]) Name Value Range Interpretation Code Description Data Claribel rce(s) Supporting Document(s) bedside glucose 139 mg/dL 70-105 Above high normal Bedside Gluco se [facility]) ID Date Data Source [id number] 03/31/2021 06:04:00 AM EDT [facility]) Name Value Range Interpretation Code Description Data Claribel rce(s) Supporting Document(s) bedside glucose 139 mg/dL 70-105 Above high normal Bedside Gluco se [facility]) ID Date Data Source [id number] 03/31/2021 06:04:00 AM EDT [facility]) Name Value Range Interpretation Code Description Data Claribel rce(s) Supporting Document(s) bedside glucose 139 mg/dL 70-105 Above high normal Bedside Gluco se [facility]) ID Date Data Source [id number] 03/31/2021 05:16:00 AM EDT [facility]) Name Value Range Interpretation Code Description Data Claribel rce(s) Supporting Document(s) bedside glucose 132 mg/dL 70-105 Above high normal Bedside Gluco se [facility] ([facility]) ID Date Data Source [id number] 03/31/2021 05:16:00 AM EDT [facility]) Name Value Range Interpretation Code Description Data Claribel rce(s) Supporting Document(s) bedside glucose 132 mg/dL 70-105 Above high normal Bedside Gluco se [facility]) ID Date Data Source [id number] 03/31/2021 05:16:00 AM EDT [facility]) Name Value Range Interpretation Code Description Data Claribel rce(s) Supporting Document(s) bedside glucose 132 mg/dL 70-105 Above high normal Bedside Gluco se [facility] ([facility]) ID Date Data Source [id number] 03/31/2021 05:10:00 AM EDT [facility]) Name Value Range Interpretation Code Description Data Claribel rce(s) Supporting Document(s) glucose, fasting 128 mg/dL 70-100 Above high normal Glucose, Fas ting [facility] ([facility]) blood urea nitrogen 7 mg/dL 7-18 Blood Urea Nitro gen [facility] ([facility]) creatinine for GFR 1.04 mg/dL 0.55-1.30 Creatinine for GF R [facility] ([facility]) glomerular filtration rate > 60.0 >60 Glomerula r Filtration Rate [facility] ([facility]) sodium level 142 mEq/L 136-145 Sodium Level [facility] ([facility]) potassium serum 3.6 mEq/L 3.5-5.1 Potassium Serum ATH NA ([facility]) chloride level 118 mEq/L 98-107 Above high normal Chloride Level [facility] ([facility]) carbon dioxide level 19 mEq/L 21-32 Below low normal Carbon Di oxide Level [facility] ([facility]) anion gap 5 mEq/L 8-16 Below low normal Anion Gap [facility] ( [facility]) calcium level 8.3 mg/dL 8.5-10.1 Below low normal Calcium Level AT [facility] ([facility]) ID Date Data Source [id number] 03/31/2021 05:10:00 AM EDT [facility] ([facility]) Name Value Range Interpretation Code Description Data Claribel rce(s) Supporting Document(s) white blood count 5.1 10 4.0-10.0 White Blood Count [facility] ([facility]) red blood count 3.65 10 4.00-5.40 Below low normal Red Blood Coun t [facility] ([facility]) hemoglobin 10.9 g/dL 12.0-15.5 Below low normal Hemoglobin [facility] ( [facility]) hematocrit 32.5 % 36.0-47.0 Below low normal Hematocrit [facility] ( [facility]) mean corpuscular volume 89.0 fL 80.0-96.0 Mean Corpusc ular Volume [facility] ([facility]) mean corpuscular hemoglobin 29.9 pg 27.0-33.0 Mean Cor puscular Hemoglobin [facility] ([facility]) mean corpuscular HGB conc 33.5 g/dL 32.0-36.5 Mean Corpu scular HGB Conc [facility] ([facility]) red cell distribution width 12.1 % 11.5-14.5 Red Cell Distribution Width [facility] ([facility]) platelet count, automated 220 10 150-450 Platelet C ount, Automated [facility] ([facility]) nucleated red blood cell % 0.0 % 0-0 Nucleated Red Blood Cell % [facility] ([facility]) ID Date Data Source [id number] 03/31/2021 05:10:00 AM EDT [facility]) Name Value Range Interpretation Code Description Data Claribel rce(s) Supporting Document(s) glucose, fasting 128 mg/dL 70-100 Above high normal Glucose, Fas ting [facility] ([facility]) blood urea nitrogen 7 mg/dL 7-18 Blood Urea Nitro gen [facility] ([facility]) creatinine for GFR 1.04 mg/dL 0.55-1.30 Creatinine for GF R [facility] ([facility]) glomerular filtration rate > 60.0 >60 Glomerula r Filtration Rate [facility] ([facility]) sodium level 142 mEq/L 136-145 Sodium Level [facility] ([facility]) potassium serum 3.6 mEq/L 3.5-5.1 Potassium Serum ATHE NA ([facility]) chloride level 118 mEq/L 98-107 Above high normal Chloride Level [facility] ([facility]) carbon dioxide level 19 mEq/L 21-32 Below low normal Carbon Di oxide Level [facility] ([facility]) anion gap 5 mEq/L 8-16 Below low normal Anion Gap [facility] ( [facility]) calcium level 8.3 mg/dL 8.5-10.1 Below low normal Calcium Level AT [facility]) ID Date Data Source [id number] 03/31/2021 05:10:00 AM EDT [facility] ([facility]) Name Value Range Interpretation Code Description Data Claribel rce(s) Supporting Document(s) white blood count 5.1 10 4.0-10.0 White Blood Count [facility] ([facility]) red blood count 3.65 10 4.00-5.40 Below low normal Red Blood Coun t [facility] ([facility]) hemoglobin 10.9 g/dL 12.0-15.5 Below low normal Hemoglobin [facility] ( [facility]) hematocrit 32.5 % 36.0-47.0 Below low normal Hematocrit [facility] ( [facility]) mean corpuscular volume 89.0 fL 80.0-96.0 Mean Corpusc ular Volume [facility] ([facility]) mean corpuscular hemoglobin 29.9 pg 27.0-33.0 Mean Cor puscular Hemoglobin [facility] ([facility]) mean corpuscular HGB conc 33.5 g/dL 32.0-36.5 Mean Corpu scular HGB Conc [facility] ([facility]) red cell distribution width 12.1 % 11.5-14.5 Red Cell Distribution Width [facility] ([facility]) platelet count, automated 220 10 150-450 Platelet C ount, Automated [facility] ([facility]) nucleated red blood cell % 0.0 % 0-0 Nucleated Red Blood Cell % [facility] ([facility]) ID Date Data Source [id number] 03/31/2021 05:10:00 AM EDT [facility]) Name Value Range Interpretation Code Description Data Claribel rce(s) Supporting Document(s) glucose, fasting 128 mg/dL 70-100 Above high normal Glucose, Fas ting [facility] ([facility]) blood urea nitrogen 7 mg/dL 7-18 Blood Urea Nitro gen [facility] ([facility]) creatinine for GFR 1.04 mg/dL 0.55-1.30 Creatinine for GF R [facility] ([facility]) glomerular filtration rate > 60.0 >60 Glomerula r Filtration Rate [facility] ([facility]) sodium level 142 mEq/L 136-145 Sodium Level [facility] ([facility]) potassium serum 3.6 mEq/L 3.5-5.1 Potassium Serum [facility] NA ([facility]) chloride level 118 mEq/L 98-107 Above high normal Chloride Level [facility] ([facility]) carbon dioxide level 19 mEq/L 21-32 Below low normal Carbon Di oxide Level [facility] ([facility]) anion gap 5 mEq/L 8-16 Below low normal Anion Gap [facility] ( [facility]) calcium level 8.3 mg/dL 8.5-10.1 Below low normal Calcium Level AT [facility]) ID Date Data Source [id number] 03/31/2021 05:10:00 AM EDT [facility]) Name Value Range Interpretation Code Description Data Claribel rce(s) Supporting Document(s) white blood count 5.1 10 4.0-10.0 White Blood Count [facility] ([facility]) red blood count 3.65 10 4.00-5.40 Below low normal Red Blood Coun t [facility] ([facility]) hemoglobin 10.9 g/dL 12.0-15.5 Below low normal Hemoglobin [facility] ( [facility]) hematocrit 32.5 % 36.0-47.0 Below low normal Hematocrit [facility] ( [facility]) mean corpuscular volume 89.0 fL 80.0-96.0 Mean Corpusc ular Volume [facility] ([facility]) mean corpuscular hemoglobin 29.9 pg 27.0-33.0 Mean Cor puscular Hemoglobin [facility] ([facility]) mean corpuscular HGB conc 33.5 g/dL 32.0-36.5 Mean Corpu scular HGB Conc [facility] ([facility]) red cell distribution width 12.1 % 11.5-14.5 Red Cell Distribution Width [facility] ([facility]) platelet count, automated 220 10 150-450 Platelet C ount, Automated [facility] ([facility]) nucleated red blood cell % 0.0 % 0-0 Nucleated Red Blood Cell % [facility] ([facility]) ID Date Data Source [id number] 03/31/2021 04:06:00 AM EDT [facility]) Name Value Range Interpretation Code Description Data Claribel rce(s) Supporting Document(s) bedside glucose 150 mg/dL 70-105 Above high normal Bedside Gluco se [facility]) ID Date Data Source [id number] 03/31/2021 04:06:00 AM EDT [facility]) Name Value Range Interpretation Code Description Data Claribel rce(s) Supporting Document(s) bedside glucose 150 mg/dL 70-105 Above high normal Bedside Gluco se [facility]) ID Date Data Source [id number] 03/31/2021 04:06:00 AM EDT [facility]) Name Value Range Interpretation Code Description Data Claribel rce(s) Supporting Document(s) bedside glucose 150 mg/dL 70-105 Above high normal Bedside Gluco se [facility] ([facility]) ID Date Data Source [id number] 03/31/2021 03:17:00 AM EDT [facility]) Name Value Range Interpretation Code Description Data Claribel rce(s) Supporting Document(s) bedside glucose 164 mg/dL 70-105 Above high normal Bedside Gluco se [facility] ([facility]) ID Date Data Source [id number] 03/31/2021 03:17:00 AM EDT [facility]) Name Value Range Interpretation Code Description Data Claribel rce(s) Supporting Document(s) bedside glucose 164 mg/dL 70-105 Above high normal Bedside Gluco se [facility] ([facility]) ID Date Data Source [id number] 03/31/2021 03:17:00 AM EDT [facility]) Name Value Range Interpretation Code Description Data Claribel rce(s) Supporting Document(s) bedside glucose 164 mg/dL 70-105 Above high normal Bedside Gluco se [facility] ([facility]) ID Date Data Source [id number] 03/31/2021 02:04:00 AM EDT [facility]) Name Value Range Interpretation Code Description Data Claribel rce(s) Supporting Document(s) bedside glucose 193 mg/dL 70-105 Above high normal Bedside Gluco se [facility] ([facility]) ID Date Data Source [id number] 03/31/2021 02:04:00 AM EDT [facility]) Name Value Range Interpretation Code Description Data Claribel rce(s) Supporting Document(s) bedside glucose 193 mg/dL 70-105 Above high normal Bedside Gluco se [facility]) ID Date Data Source [id number] 03/31/2021 02:04:00 AM EDT [facility] ([facility]) Name Value Range Interpretation Code Description Data Claribel rce(s) Supporting Document(s) bedside glucose 193 mg/dL 70-105 Above high normal Bedside Gluco se [facility] ([facility]) ID Date Data Source [id number] 03/31/2021 01:04:00 AM EDT [facility] ([facility]) Name Value Range Interpretation Code Description Data Claribel rce(s) Supporting Document(s) bedside glucose 103 mg/dL 70-105 Bedside Glucose ATHJuan Carlos MCKEON ([facility]) ID Date Data Source [id number] 03/31/2021 01:04:00 AM EDT [facility]) Name Value Range Interpretation Code Description Data Claribel rce(s) Supporting Document(s) bedside glucose 103 mg/dL 70-105 Bedside Glucose ATHE LINDA ([facility]) ID Date Data Source [id number] 03/31/2021 01:04:00 AM EDT [facility]) Name Value Range Interpretation Code Description Data Claribel rce(s) Supporting Document(s) bedside glucose 103 mg/dL 70-105 Bedside Glucose ATHE LINDA ([facility]) ID Date Data Source [id number] 03/31/2021 01:01:00 AM EDT [facility]) Name Value Range Interpretation Code Description Data Claribel rce(s) Supporting Document(s) glucose, fasting 173 mg/dL 70-100 Above high normal Glucose, Fas ting [facility] ([facility]) blood urea nitrogen 9 mg/dL 7-18 Blood Urea Nitro gen [facility] ([facility]) creatinine for GFR 1.02 mg/dL 0.55-1.30 Creatinine for GF R [facility] ([facility]) glomerular filtration rate > 60.0 >60 Glomerula r Filtration Rate [facility] ([facility]) sodium level 139 mEq/L 136-145 Sodium Level [facility] ([facility]) potassium serum 3.9 mEq/L 3.5-5.1 Potassium Serum ATHE NA ([facility]) chloride level 112 mEq/L 98-107 Above high normal Chloride Level [facility] ([facility]) carbon dioxide level 18 mEq/L 21-32 Below low normal Carbon Di oxide Level [facility]I ([facility]) anion gap 9 mEq/L 8-16 Anion Gap [facility] ([facility]) calcium level 8.2 mg/dL 8.5-10.1 Below low normal Calcium Level AT [facility]) ID Date Data Source [id number] 03/31/2021 01:01:00 AM EDT [facility] ([facility]) Name Value Range Interpretation Code Description Data Claribel rce(s) Supporting Document(s) glucose, fasting 173 mg/dL 70-100 Above high normal Glucose, Fas ting [facility] ([facility]) blood urea nitrogen 9 mg/dL 7-18 Blood Urea Nitro gen [facility] ([facility]) creatinine for GFR 1.02 mg/dL 0.55-1.30 Creatinine for GF R [facility] ([facility]) glomerular filtration rate > 60.0 >60 Glomerula r Filtration Rate [facility]I ([facility]) sodium level 139 mEq/L 136-145 Sodium Level [facility] ([facility]) potassium serum 3.9 mEq/L 3.5-5.1 Potassium Serum ATHE NA ([facility]) chloride level 112 mEq/L 98-107 Above high normal Chloride Level [facility] ([facility]) carbon dioxide level 18 mEq/L 21-32 Below low normal Carbon Di oxide Level [facility]I ([facility]) anion gap 9 mEq/L 8-16 Anion Gap [facility] ([facility]) calcium level 8.2 mg/dL 8.5-10.1 Below low normal Calcium Level AT [facility]) ID Date Data Source [id number] 03/31/2021 01:01:00 AM EDT [facility]) Name Value Range Interpretation Code Description Data Claribel rce(s) Supporting Document(s) glucose, fasting 173 mg/dL 70-100 Above high normal Glucose, Fas ting [facility]I ([facility]) blood urea nitrogen 9 mg/dL 7-18 Blood Urea Nitro gen [facility] ([facility]) creatinine for GFR 1.02 mg/dL 0.55-1.30 Creatinine for GF R [facility] ([facility]) glomerular filtration rate > 60.0 >60 Glomerula r Filtration Rate [facility] ([facility]) sodium level 139 mEq/L 136-145 Sodium Level [facility] ([facility]) potassium serum 3.9 mEq/L 3.5-5.1 Potassium Serum ATH NA ([facility]) chloride level 112 mEq/L 98-107 Above high normal Chloride Level [facility] ([facility]) carbon dioxide level 18 mEq/L 21-32 Below low normal Carbon Di oxide Level [facility] ([facility]) anion gap 9 mEq/L 8-16 Anion Gap [facility] ([facility]) calcium level 8.2 mg/dL 8.5-10.1 Below low normal Calcium Level AT [facility]) ID Date Data Source [id number] 03/31/2021 12:10:00 AM EDT [facility]) Name Value Range Interpretation Code Description Data Claribel rce(s) Supporting Document(s) bedside glucose 143 mg/dL 70-105 Above high normal Bedside Gluco se [facility] ([facility]) ID Date Data Source [id number] 03/31/2021 12:10:00 AM EDT [facility]) Name Value Range Interpretation Code Description Data Claribel rce(s) Supporting Document(s) bedside glucose 143 mg/dL 70-105 Above high normal Bedside Gluco se [facility]) ID Date Data Source [id number] 03/31/2021 12:10:00 AM EDT [facility]) Name Value Range Interpretation Code Description Data Claribel rce(s) Supporting Document(s) bedside glucose 143 mg/dL 70-105 Above high normal Bedside Gluco se [facility]) ID Date Data Source [id number] 03/30/2021 11:09:00 PM EDT [facility]) Name Value Range Interpretation Code Description Data Claribel rce(s) Supporting Document(s) bedside glucose 155 mg/dL 70-105 Above high normal Bedside Gluco se [facility]) ID Date Data Source [id number] 03/30/2021 11:09:00 PM EDT [facility]) Name Value Range Interpretation Code Description Data Claribel rce(s) Supporting Document(s) bedside glucose 155 mg/dL 70-105 Above high normal Bedside Gluco se [facility]) ID Date Data Source [id number] 03/30/2021 11:09:00 PM EDT [facility]) Name Value Range Interpretation Code Description Data Claribel rce(s) Supporting Document(s) bedside glucose 155 mg/dL 70-105 Above high normal Bedside Gluco se [facility]) ID Date Data Source [id number] 03/30/2021 10:03:00 PM EDT [facility]) Name Value Range Interpretation Code Description Data Claribel rce(s) Supporting Document(s) bedside glucose 160 mg/dL 70-105 Above high normal Bedside Gluco se [facility]) ID Date Data Source [id number] 03/30/2021 10:03:00 PM EDT [facility]) Name Value Range Interpretation Code Description Data Claribel rce(s) Supporting Document(s) bedside glucose 160 mg/dL 70-105 Above high normal Bedside Gluco se [facility] ([facility]) ID Date Data Source [id number] 03/30/2021 10:03:00 PM EDT [facility] ([facility]) Name Value Range Interpretation Code Description Data Claribel rce(s) Supporting Document(s) bedside glucose 160 mg/dL 70-105 Above high normal Bedside Gluco se [facility] ([facility]) ID Date Data Source [id number] 03/30/2021 09:10:00 PM EDT [facility] ([facility]) Name Value Range Interpretation Code Description Data Claribel rce(s) Supporting Document(s) magnesium level 1.8 mg/dL 1.8-2.4 Magnesium Level [facility]) ID Date Data Source [id number] 03/30/2021 09:10:00 PM EDT [facility]) Name Value Range Interpretation Code Description Data Claribel rce(s) Supporting Document(s) glucose, fasting 178 mg/dL 70-100 Above high normal Glucose, Fas ting [facility] ([facility]) blood urea nitrogen 11 mg/dL 7-18 Blood Urea Nitro gen [facility] ([facility]) creatinine for GFR 1.10 mg/dL 0.55-1.30 Creatinine for GF R [facility] ([facility]) glomerular filtration rate > 60.0 >60 Glomerula r Filtration Rate [facility] ([facility]) sodium level 139 mEq/L 136-145 Sodium Level [facility] ([facility]) potassium serum 3.8 mEq/L 3.5-5.1 Potassium Serum [facility] ([facility]) chloride level 115 mEq/L 98-107 Above high normal Chloride Level [facility] ([facility]) carbon dioxide level 15 mEq/L 21-32 Below low normal Carbon Di oxide Level [facility] ([facility]) anion gap 9 mEq/L 8-16 Anion Gap [facility] ([facility]) calcium level 8.4 mg/dL 8.5-10.1 Below low normal Calcium Level AT [facility] ([facility]) ID Date Data Source [id number] 03/30/2021 09:10:00 PM EDT [facility] ([facility]) Name Value Range Interpretation Code Description Data Claribel rce(s) Supporting Document(s) magnesium level 1.8 mg/dL 1.8-2.4 Magnesium Level [facility] ([facility]) ID Date Data Source [id number] 03/30/2021 09:10:00 PM EDT [facility]) Name Value Range Interpretation Code Description Data Claribel rce(s) Supporting Document(s) glucose, fasting 178 mg/dL 70-100 Above high normal Glucose, Fas ting [facility] ([facility]) blood urea nitrogen 11 mg/dL 7-18 Blood Urea Nitro gen [facility] ([facility]) glomerular filtration rate > 60.0 >60 Glomerula r Filtration Rate [facility] ([facility]) creatinine for GFR 1.10 mg/dL 0.55-1.30 Creatinine for GF R [facility] ([facility]) sodium level 139 mEq/L 136-145 Sodium Level [facility] ([facility]) potassium serum 3.8 mEq/L 3.5-5.1 Potassium Serum [facility] ([facility]) chloride level 115 mEq/L 98-107 Above high normal Chloride Level [facility] ([facility]) carbon dioxide level 15 mEq/L 21-32 Below low normal Carbon Di oxide Level [facility] ([facility]) anion gap 9 mEq/L 8-16 Anion Gap [facility] ([facility]) calcium level 8.4 mg/dL 8.5-10.1 Below low normal Calcium Level AT [facility] ([facility]) ID Date Data Source [id number] 03/30/2021 09:10:00 PM EDT [facility]) Name Value Range Interpretation Code Description Data Claribel rce(s) Supporting Document(s) magnesium level 1.8 mg/dL 1.8-2.4 Magnesium Level [facility] ([facility]) ID Date Data Source [id number] 03/30/2021 09:10:00 PM EDT [facility] ([facility]) Name Value Range Interpretation Code Description Data Claribel rce(s) Supporting Document(s) glucose, fasting 178 mg/dL 70-100 Above high normal Glucose, Fas ting [facility] ([facility]) blood urea nitrogen 11 mg/dL 7-18 Blood Urea Nitro gen [facility] ([facility]) creatinine for GFR 1.10 mg/dL 0.55-1.30 Creatinine for GF R [facility] ([facility]) glomerular filtration rate > 60.0 >60 Glomerula r Filtration Rate [facility] ([facility]) sodium level 139 mEq/L 136-145 Sodium Level [facility] ([facility]) potassium serum 3.8 mEq/L 3.5-5.1 Potassium Serum [facility] ([facility]) chloride level 115 mEq/L 98-107 Above high normal Chloride Level [facility] ([facility]) carbon dioxide level 15 mEq/L 21-32 Below low normal Carbon Di oxide Level [facility] ([facility]) anion gap 9 mEq/L 8-16 Anion Gap [facility] ([facility]) calcium level 8.4 mg/dL 8.5-10.1 Below low normal Calcium Level AT [facility] ([facility]) ID Date Data Source [id number] 03/30/2021 09:09:00 PM EDT [facility] ([facility]) Name Value Range Interpretation Code Description Data Claribel rce(s) Supporting Document(s) bedside glucose 180 mg/dL 70-105 Above high normal Bedside Gluco se [facility] ([facility]) ID Date Data Source [id number] 03/30/2021 09:09:00 PM EDT [facility]) Name Value Range Interpretation Code Description Data Claribel rce(s) Supporting Document(s) bedside glucose 180 mg/dL 70-105 Above high normal Bedside Gluco se [facility]) ID Date Data Source [id number] 03/30/2021 09:09:00 PM EDT [facility]) Name Value Range Interpretation Code Description Data Claribel rce(s) Supporting Document(s) bedside glucose 180 mg/dL 70-105 Above high normal Bedside Gluco se [facility]) ID Date Data Source [id number] 03/30/2021 08:09:00 PM EDT [facility]) Name Value Range Interpretation Code Description Data Claribel rce(s) Supporting Document(s) bedside glucose 171 mg/dL 70-105 Above high normal Bedside Gluco se [facility]) ID Date Data Source [id number] 03/30/2021 08:09:00 PM EDT [facility]) Name Value Range Interpretation Code Description Data Claribel rce(s) Supporting Document(s) bedside glucose 171 mg/dL 70-105 Above high normal Bedside Gluco se [facility]) ID Date Data Source [id number] 03/30/2021 08:09:00 PM EDT [facility]) Name Value Range Interpretation Code Description Data Claribel rce(s) Supporting Document(s) bedside glucose 171 mg/dL 70-105 Above high normal Bedside Gluco se [facility]) ID Date Data Source [id number] 03/30/2021 07:11:00 PM EDT [facility]) Name Value Range Interpretation Code Description Data Claribel rce(s) Supporting Document(s) bedside glucose 185 mg/dL 70-105 Above high normal Bedside Gluco se [facility]) ID Date Data Source [id number] 03/30/2021 07:11:00 PM EDT [facility]) Name Value Range Interpretation Code Description Data Claribel rce(s) Supporting Document(s) bedside glucose 185 mg/dL 70-105 Above high normal Bedside Gluco se [facility] ([facility]) ID Date Data Source [id number] 03/30/2021 07:11:00 PM EDT [facility]) Name Value Range Interpretation Code Description Data Claribel rce(s) Supporting Document(s) bedside glucose 185 mg/dL 70-105 Above high normal Bedside Gluco se [facility] ([facility]) ID Date Data Source [id number] 03/30/2021 06:15:00 PM EDT [facility]) Name Value Range Interpretation Code Description Data Claribel rce(s) Supporting Document(s) bedside glucose 198 mg/dL 70-105 Above high normal Bedside Gluco se [facility] ([facility]) ID Date Data Source [id number] 03/30/2021 06:15:00 PM EDT [facility]) Name Value Range Interpretation Code Description Data Claribel rce(s) Supporting Document(s) bedside glucose 198 mg/dL 70-105 Above high normal Bedside Gluco se [facility] ([facility]) ID Date Data Source [id number] 03/30/2021 06:15:00 PM EDT [facility]) Name Value Range Interpretation Code Description Data Claribel rce(s) Supporting Document(s) bedside glucose 198 mg/dL 70-105 Above high normal Bedside Gluco se [facility] ([facility]) ID Date Data Source [id number] 03/30/2021 05:34:00 PM EDT [facility] ([facility]) Name Value Range Interpretation Code Description Data Claribel rce(s) Supporting Document(s) bedside glucose 192 mg/dL 70-105 Above high normal Bedside Gluco se [facility] ([facility]) ID Date Data Source [id number] 03/30/2021 05:34:00 PM EDT [facility] ([facility]) Name Value Range Interpretation Code Description Data Claribel rce(s) Supporting Document(s) bedside glucose 192 mg/dL 70-105 Above high normal Bedside Gluco se [facility] ([facility]) ID Date Data Source [id number] 03/30/2021 05:34:00 PM EDT [facility]) Name Value Range Interpretation Code Description Data Claribel rce(s) Supporting Document(s) bedside glucose 192 mg/dL 70-105 Above high normal Bedside Gluco se [facility] ([facility]) ID Date Data Source [id number] 03/30/2021 05:32:00 PM EDT [facility] ([facility]) Name Value Range Interpretation Code Description Data Claribel rce(s) Supporting Document(s) magnesium level 1.9 mg/dL 1.8-2.4 Magnesium [facility]) ID Date Data Source [id number] 03/30/2021 05:32:00 PM EDT [facility] ([facility]) Name Value Range Interpretation Code Description Data Claribel rce(s) Supporting Document(s) glucose, fasting 195 mg/dL 70-100 Above high normal Glucose, Fas ting [facility] ([facility]) blood urea nitrogen 12 mg/dL 7-18 Blood Urea Nitro gen [facility] ([facility]) creatinine for GFR 1.09 mg/dL 0.55-1.30 Creatinine for GF R [facility] ([facility]) glomerular filtration rate > 60.0 >60 Glomerula r Filtration Rate [facility] ([facility]) sodium level 141 mEq/L 136-145 Sodium Level [facility] ([facility]) potassium serum 3.9 mEq/L 3.5-5.1 Potassium Serum [facility] ([facility]) chloride level 115 mEq/L 98-107 Above high normal Chloride Level [facility] ([facility]) carbon dioxide level 16 mEq/L 21-32 Below low normal Carbon Di oxide Level [facility] ([facility]) anion gap 10 mEq/L 8-16 Anion Gap [facility] ([facility]) calcium level 8.2 mg/dL 8.5-10.1 Below low normal Calcium Level AT [facility]) ID Date Data Source [id number] 03/30/2021 05:32:00 PM EDT [facility]) Name Value Range Interpretation Code Description Data Claribel rce(s) Supporting Document(s) magnesium level 1.9 mg/dL 1.8-2.4 Magnesium [facility]) ID Date Data Source [id number] 03/30/2021 05:32:00 PM EDT [facility]) Name Value Range Interpretation Code Description Data Claribel rce(s) Supporting Document(s) glucose, fasting 195 mg/dL 70-100 Above high normal Glucose, Fas ting [facility] ([facility]) blood urea nitrogen 12 mg/dL 7-18 Blood Urea Nitro gen [facility] ([facility]) glomerular filtration rate > 60.0 >60 Glomerula r Filtration Rate [facility] ([facility]) creatinine for GFR 1.09 mg/dL 0.55-1.30 Creatinine for GF R [facility] ([facility]) sodium level 141 mEq/L 136-145 Sodium Level [facility] ([facility]) potassium serum 3.9 mEq/L 3.5-5.1 Potassium Serum [facility] ([facility]) chloride level 115 mEq/L 98-107 Above high normal Chloride Level [facility] ([facility]) carbon dioxide level 16 mEq/L 21-32 Below low normal Carbon Di oxide Level [facility] ([facility]) anion gap 10 mEq/L 8-16 Anion Gap [facility] ([facility]) calcium level 8.2 mg/dL 8.5-10.1 Below low normal Calcium Level AT [facility] ([facility]) ID Date Data Source [id number] 03/30/2021 05:32:00 PM EDT [facility] ([facility]) Name Value Range Interpretation Code Description Data Claribel rce(s) Supporting Document(s) magnesium level 1.9 mg/dL 1.8-2.4 Magnesium Level [facility] ([facility]) ID Date Data Source [id number] 03/30/2021 05:32:00 PM EDT [facility] ([facility]) Name Value Range Interpretation Code Description Data Claribel rce(s) Supporting Document(s) glucose, fasting 195 mg/dL 70-100 Above high normal Glucose, Fas ting [facility] ([facility]) blood urea nitrogen 12 mg/dL 7-18 Blood Urea Nitro gen [facility] ([facility]) creatinine for GFR 1.09 mg/dL 0.55-1.30 Creatinine for GF R [facility] ([facility]) glomerular filtration rate > 60.0 >60 Glomerula r Filtration Rate [facility] ([facility]) sodium level 141 mEq/L 136-145 Sodium Level [facility] ([facility]) potassium serum 3.9 mEq/L 3.5-5.1 Potassium Serum [facility] ([facility]) chloride level 115 mEq/L 98-107 Above high normal Chloride Level [facility] ([facility]) carbon dioxide level 16 mEq/L 21-32 Below low normal Carbon Di oxide Level [facility] ([facility]) anion gap 10 mEq/L 8-16 Anion Gap [facility] ([facility]) calcium level 8.2 mg/dL 8.5-10.1 Below low normal Calcium Level AT [facility] ([facility]) ID Date Data Source [id number] 03/30/2021 04:31:00 PM EDT [facility]) Name Value Range Interpretation Code Description Data Claribel rce(s) Supporting Document(s) bedside glucose 182 mg/dL 70-105 Above high normal Bedside Gluco se [facility]) ID Date Data Source [id number] 03/30/2021 04:31:00 PM EDT [facility]) Name Value Range Interpretation Code Description Data Claribel rce(s) Supporting Document(s) bedside glucose 182 mg/dL 70-105 Above high normal Bedside Gluco se [facility]) ID Date Data Source [id number] 03/30/2021 04:31:00 PM EDT [facility]) Name Value Range Interpretation Code Description Data Claribel rce(s) Supporting Document(s) bedside glucose 182 mg/dL 70-105 Above high normal Bedside Gluco se [facility]) ID Date Data Source [id number] 03/30/2021 03:07:00 PM EDT [facility]) Name Value Range Interpretation Code Description Data Claribel rce(s) Supporting Document(s) bedside glucose 207 mg/dL 70-105 Above high normal Bedside Gluco se [facility]) ID Date Data Source [id number] 03/30/2021 03:07:00 PM EDT [facility]) Name Value Range Interpretation Code Description Data Claribel rce(s) Supporting Document(s) bedside glucose 207 mg/dL 70-105 Above high normal Bedside Gluco se [facility]) ID Date Data Source [id number] 03/30/2021 03:07:00 PM EDT [facility]) Name Value Range Interpretation Code Description Data Claribel rce(s) Supporting Document(s) bedside glucose 207 mg/dL 70-105 Above high normal Bedside Gluco se [facility] ([facility]) ID Date Data Source [id number] 03/30/2021 02:06:00 PM EDT [facility]) Name Value Range Interpretation Code Description Data Claribel rce(s) Supporting Document(s) bedside glucose 128 mg/dL 70-105 Above high normal Bedside Gluco se [facility] ([facility]) ID Date Data Source [id number] 03/30/2021 02:06:00 PM EDT [facility]) Name Value Range Interpretation Code Description Data Claribel rce(s) Supporting Document(s) bedside glucose 128 mg/dL 70-105 Above high normal Bedside Gluco se [facility]) ID Date Data Source [id number] 03/30/2021 02:06:00 PM EDT [facility]) Name Value Range Interpretation Code Description Data Claribel rce(s) Supporting Document(s) bedside glucose 128 mg/dL 70-105 Above high normal Bedside Gluco se [facility]) ID Date Data Source [id number] 03/30/2021 01:05:00 PM EDT [facility]) Name Value Range Interpretation Code Description Data Claribel rce(s) Supporting Document(s) bedside glucose 138 mg/dL 70-105 Above high normal Bedside Gluco se [facility]) ID Date Data Source [id number] 03/30/2021 01:05:00 PM EDT [facility]) Name Value Range Interpretation Code Description Data Claribel rce(s) Supporting Document(s) bedside glucose 138 mg/dL 70-105 Above high normal Bedside Gluco se [facility]) ID Date Data Source [id number] 03/30/2021 01:05:00 PM EDT [facility] ([facility]) Name Value Range Interpretation Code Description Data Claribel rce(s) Supporting Document(s) bedside glucose 138 mg/dL 70-105 Above high normal Bedside Gluco se [facility] ([facility]) ID Date Data Source [id number] 03/30/2021 12:13:00 PM EDT [facility] ([facility]) Name Value Range Interpretation Code Description Data Claribel rce(s) Supporting Document(s) osmolality serum 308 mOsm/kg 275-295 Above high normal Osmolality Serum [facility] ([facility]) ID Date Data Source [id number] 03/30/2021 12:13:00 PM EDT [facility] ([facility]) Name Value Range Interpretation Code Description Data Claribel rce(s) Supporting Document(s) phosphorus level 1.7 mg/dL 2.5-4.9 Below low normal Phosphorus Le karma [facility] ([facility]) ID Date Data Source [id number] 03/30/2021 12:13:00 PM EDT [facility] ([facility]) Name Value Range Interpretation Code Description Data Claribel rce(s) Supporting Document(s) glucose, fasting 118 mg/dL 70-100 Above high normal Glucose, Fas ting [facility] ([facility]) blood urea nitrogen 16 mg/dL 7-18 Blood Urea Nitro gen [facility] ([facility]) creatinine for GFR 1.18 mg/dL 0.55-1.30 Creatinine for GF R [facility] ([facility]) glomerular filtration rate >60 Below low normal Mariza merular Filtration Rate [facility] ([facility]) sodium level 144 mEq/L 136-145 Sodium Level [facility] ([facility]) potassium serum 4.4 mEq/L 3.5-5.1 Potassium Serum [facility] ([facility]) chloride level 117 mEq/L 98-107 Above high normal Chloride Level [facility] ([facility]) carbon dioxide level 12 mEq/L 21-32 Below low normal Carbon Di oxide Level [facility] ([facility]) anion gap 15 mEq/L 8-16 Anion Gap [facility] ([facility]) calcium level 9.1 mg/dL 8.5-10.1 Calcium Level [facility] ( [facility]) ID Date Data Source [id number] 03/30/2021 12:13:00 PM EDT [facility] ([facility]) Name Value Range Interpretation Code Description Data Claribel rce(s) Supporting Document(s) venous pH 7.171 units 7.330-7.430 Below low normal Venous pH [facility] ([facility]) venous partial pressure CO2 26.1 mmHg 38.0-50.0 Below low nor mal Venous Partial Pressure CO2 [facility] ([facility]) venous partial pressure O2 64.5 mmHg 30.0-50.0 Above high nor mal Venous Partial Pressure O2 [facility] ([facility]) venous total CO2 10.1 mEq/L 24.0-28.0 Below low normal Venous Total CO2 [facility] ([facility]) venous HCO3 9.3 mEq/L 23.0-27.0 Below low normal Venous HCO3 [facility] ([facility]) venous base excess -2.0-2.0 Below low normal Venous Base Excess [facility] ([facility]) venous standard HCO3 11.3 mEq/L Venous Standard HCO3 [facility] ([facility]) venous O2 saturation 90.9 % 60.0-80.0 Above high normal Venous O 2 Saturation [facility] ([facility]) ID Date Data Source [id number] 03/30/2021 12:13:00 PM EDT [facility] ([facility]) Name Value Range Interpretation Code Description Data Claribel rce(s) Supporting Document(s) osmolality serum 308 mOsm/kg 275-295 Above high normal Osmolality Serum [facility] ([facility]) ID Date Data Source [id number] 03/30/2021 12:13:00 PM EDT [facility] ([facility]) Name Value Range Interpretation Code Description Data Claribel rce(s) Supporting Document(s) phosphorus level 1.7 mg/dL 2.5-4.9 Below low normal Phosphorus Le karma [facility] ([facility]) ID Date Data Source [id number] 03/30/2021 12:13:00 PM EDT [facility] ([facility]) Name Value Range Interpretation Code Description Data Claribel rce(s) Supporting Document(s) glucose, fasting 118 mg/dL 70-100 Above high normal Glucose, Fas ting [facility] ([facility]) blood urea nitrogen 16 mg/dL 7-18 Blood Urea Nitro gen [facility] ([facility]) creatinine for GFR 1.18 mg/dL 0.55-1.30 Creatinine for GF R [facility] ([facility]) glomerular filtration rate >60 Below low normal Mariza merular Filtration Rate ARMSTRONG ([facility]) sodium level 144 mEq/L 136-145 Sodium Level CYNDI ([facility]) potassium serum 4.4 mEq/L 3.5-5.1 Potassium Serum ATH NA ([facility]) chloride level 117 mEq/L 98-107 Above high normal Chloride Level ARMSTRONG ([facility]) carbon dioxide level 12 mEq/L 21-32 Below low normal Carbon Di oxide Level ARMSTRONG ([facility]) anion gap 15 mEq/L 8-16 Anion Gap ARMSTRONG ([facility]) calcium level 9.1 mg/dL 8.5-10.1 Calcium Level ARMSTRONG ( [facility]) ID Date Data Source [id number] 03/30/2021 12:13:00 PM EDT [facility]) Name Value Range Interpretation Code Description Data Claribel rce(s) Supporting Document(s) venous pH 7.171 units 7.330-7.430 Below low normal Venous pH ARMSTRONG ([facility]) venous partial pressure CO2 26.1 mmHg 38.0-50.0 Below low nor mal Venous Partial Pressure CO2 ARMSTRONG ([facility]) venous partial pressure O2 64.5 mmHg 30.0-50.0 Above high nor mal Venous Partial Pressure O2 ARMSTRONG ([facility]) venous total CO2 10.1 mEq/L 24.0-28.0 Below low normal Venous Total CO2 ARMSTRONG ([facility]) venous HCO3 9.3 mEq/L 23.0-27.0 Below low normal Venous HCO3 ARMSTRONG ([facility]) venous base excess -2.0-2.0 Below low normal Venous Base Excess ARMSTRONG ([facility]) venous standard HCO3 11.3 mEq/L Venous Standard HCO3 ARMSTRONG ([facility]) venous O2 saturation 90.9 % 60.0-80.0 Above high normal Venous O 2 Saturation ARMSTRONG ([facility]) ID Date Data Source [id number] 03/30/2021 12:13:00 PM EDT ARMSTRONG ([facility]) Name Value Range Interpretation Code Description Data Claribel rce(s) Supporting Document(s) osmolality serum 308 mOsm/kg 275-295 Above high normal Osmolality Serum ARMSTRONG ([facility]) ID Date Data Source [id number] 03/30/2021 12:13:00 PM EDT ARMSTRONG ([facility]) Name Value Range Interpretation Code Description Data Claribel rce(s) Supporting Document(s) phosphorus level 1.7 mg/dL 2.5-4.9 Below low normal Phosphorus Le karma ARMSTRONG ([facility]) ID Date Data Source [id number] 03/30/2021 12:13:00 PM EDT [facility]) Name Value Range Interpretation Code Description Data Claribel rce(s) Supporting Document(s) glucose, fasting 118 mg/dL 70-100 Above high normal Glucose, Fas ting ARMSTRONG ([facility]) blood urea nitrogen 16 mg/dL 7-18 Blood Urea Nitro gen ARMSTRONG ([facility]) creatinine for GFR 1.18 mg/dL 0.55-1.30 Creatinine for GF R CYNDI ([facility]) glomerular filtration rate >60 Below low normal Mariza merular Filtration Rate CYNDI ([facility]) sodium level 144 mEq/L 136-145 Sodium Level CYNDI ([facility]) potassium serum 4.4 mEq/L 3.5-5.1 Potassium Serum ATHE NA ([facility]) chloride level 117 mEq/L 98-107 Above high normal Chloride Level CYNDI ([facility]) carbon dioxide level 12 mEq/L 21-32 Below low normal Carbon Di oxide Level CYNDI ([facility]) anion gap 15 mEq/L 8-16 Anion Gap CYNDI ([facility]) calcium level 9.1 mg/dL 8.5-10.1 Calcium Level ARMSTRONG ( [facility]) ID Date Data Source [id number] 03/30/2021 12:13:00 PM EDT ARMSTRONG ([facility]) Name Value Range Interpretation Code Description Data Claribel rce(s) Supporting Document(s) venous pH 7.171 units 7.330-7.430 Below low normal Venous pH CYNDI ([facility]) venous partial pressure CO2 26.1 mmHg 38.0-50.0 Below low nor mal Venous Partial Pressure CO2 ARMSTRONG ([facility]) venous partial pressure O2 64.5 mmHg 30.0-50.0 Above high nor mal Venous Partial Pressure O2 CYNDI ([facility]) venous total CO2 10.1 mEq/L 24.0-28.0 Below low normal Venous Total CO2 ARMSTRONG ([facility]) venous HCO3 9.3 mEq/L 23.0-27.0 Below low normal Venous HCO3 CYNDI ([facility]) venous base excess -2.0-2.0 Below low normal Venous Base Excess CYNDI ([facility]) venous standard HCO3 11.3 mEq/L Venous Standard HCO3 [facility]) venous O2 saturation 90.9 % 60.0-80.0 Above high normal Venous O 2 Saturation [facility]) ID Date Data Source [id number] 03/30/2021 12:12:00 PM EDT [facility]) Name Value Range Interpretation Code Description Data Claribel rce(s) Supporting Document(s) bedside glucose 123 mg/dL 70-105 Above high normal Bedside Gluco se [facility]) ID Date Data Source [id number] 03/30/2021 12:12:00 PM EDT [facility]) Name Value Range Interpretation Code Description Data Claribel rce(s) Supporting Document(s) bedside glucose 123 mg/dL 70-105 Above high normal Bedside Gluco se [facility]) ID Date Data Source [id number] 03/30/2021 12:12:00 PM EDT [facility]) Name Value Range Interpretation Code Description Data Claribel rce(s) Supporting Document(s) bedside glucose 123 mg/dL 70-105 Above high normal Bedside Gluco se [facility]) ID Date Data Source [id number] 03/30/2021 11:00:00 AM EDT [facility]) Name Value Range Interpretation Code Description Data Claribel rce(s) Supporting Document(s) bedside glucose 113 mg/dL 70-105 Above high normal Bedside Gluco se [facility]) ID Date Data Source [id number] 03/30/2021 11:00:00 AM EDT [facility]) Name Value Range Interpretation Code Description Data Claribel rce(s) Supporting Document(s) bedside glucose 113 mg/dL 70-105 Above high normal Bedside Gluco se [facility]) ID Date Data Source [id number] 03/30/2021 11:00:00 AM EDT [facility]) Name Value Range Interpretation Code Description Data Claribel rce(s) Supporting Document(s) bedside glucose 113 mg/dL 70-105 Above high normal Bedside Gluco se ARMSTRONG ([facility]) ID Date Data Source [id number] 03/30/2021 09:57:00 AM EDT [facility]) Name Value Range Interpretation Code Description Data Claribel rce(s) Supporting Document(s) bedside glucose 161 mg/dL 70-105 Above high normal Bedside Gluco se ARMSTRONG ([facility]) ID Date Data Source [id number] 03/30/2021 09:57:00 AM EDT [facility]) Name Value Range Interpretation Code Description Data Claribel rce(s) Supporting Document(s) bedside glucose 161 mg/dL 70-105 Above high normal Bedside Gluco se [facility]) ID Date Data Source [id number] 03/30/2021 09:57:00 AM EDT [facility]) Name Value Range Interpretation Code Description Data Calribel rce(s) Supporting Document(s) bedside glucose 161 mg/dL 70-105 Above high normal Bedside Gluco se [facility]) ID Date Data Source [id number] 03/30/2021 08:57:00 AM EDT [facility]) Name Value Range Interpretation Code Description Data Claribel rce(s) Supporting Document(s) bedside glucose 206 mg/dL 70-105 Above high normal Bedside Gluco se [facility]) ID Date Data Source [id number] 03/30/2021 08:57:00 AM EDT [facility]) Name Value Range Interpretation Code Description Data Claribel rce(s) Supporting Document(s) bedside glucose 206 mg/dL 70-105 Above high normal Bedside Gluco se [facility]) ID Date Data Source [id number] 03/30/2021 08:57:00 AM EDT ARMSTRONG ([facility]) Name Value Range Interpretation Code Description Data Claribel rce(s) Supporting Document(s) bedside glucose 206 mg/dL 70-105 Above high normal Bedside Gluco se ARMSTRONG ([facility]) ID Date Data Source [id number] 03/30/2021 08:36:00 AM EDT [facility]) Name Value Range Interpretation Code Description Data Claribel rce(s) Supporting Document(s) osmolality serum 317 mOsm/kg 275-295 Above high normal Osmolality Serum ARMSTRONG ([facility]) ID Date Data Source [id number] 03/30/2021 08:36:00 AM EDT [facility]) Name Value Range Interpretation Code Description Data Claribel rce(s) Supporting Document(s) magnesium level 2.0 mg/dL 1.8-2.4 Magnesium Level ATHE NA ([facility]) ID Date Data Source [id number] 03/30/2021 08:36:00 AM EDT ARMSTRONG ([facility]) Name Value Range Interpretation Code Description Data Claribel rce(s) Supporting Document(s) phosphorus level 1.4 mg/dL 2.5-4.9 Below low normal Phosphorus Le karma CYNDI ([facility]) ID Date Data Source [id number] 03/30/2021 08:36:00 AM EDT [facility]) Name Value Range Interpretation Code Description Data Claribel rce(s) Supporting Document(s) glucose, fasting 237 mg/dL 70-100 Above high normal Glucose, Fas ting ARMSTRONG ([facility]) blood urea nitrogen 17 mg/dL 7-18 Blood Urea Nitro gen ARMSTRONG ([facility]) creatinine for GFR 1.43 mg/dL 0.55-1.30 Above high normal Creatinine for GFR CYNDI ([facility]) glomerular filtration rate >60 Below low normal Mariza merular Filtration Rate CYNDI ([facility]) sodium level 143 mEq/L 136-145 Sodium Level CYNDI ([facility]) potassium serum 4.0 mEq/L 3.5-5.1 Potassium Serum ATHE NA ([facility]) chloride level 115 mEq/L 98-107 Above high normal Chloride Level CYNDI ([facility]) carbon dioxide level 11 mEq/L 21-32 Below low normal Carbon Di oxide Level CYNDI ([facility]) anion gap 17 mEq/L 8-16 Above high normal Anion Gap CYNDI ([facility]) calcium level 9.2 mg/dL 8.5-10.1 Calcium Level CYNDI ( [facility]) ID Date Data Source [id number] 03/30/2021 08:36:00 AM EDT ARMSTRONG ([facility]) Name Value Range Interpretation Code Description Data Claribel rce(s) Supporting Document(s) osmolality serum 317 mOsm/kg 275-295 Above high normal Osmolality Serum ARMSTRONG ([facility]) ID Date Data Source [id number] 03/30/2021 08:36:00 AM EDT [facility]) Name Value Range Interpretation Code Description Data Claribel rce(s) Supporting Document(s) magnesium level 2.0 mg/dL 1.8-2.4 Magnesium Level ATHE ([facility]) ID Date Data Source [id number] 03/30/2021 08:36:00 AM EDT [facility]) Name Value Range Interpretation Code Description Data Claribel rce(s) Supporting Document(s) phosphorus level 1.4 mg/dL 2.5-4.9 Below low normal Phosphorus Le karma CYNDI ([facility]) ID Date Data Source [id number] 03/30/2021 08:36:00 AM EDT ARMSTRONG ([facility]) Name Value Range Interpretation Code Description Data Claribel rce(s) Supporting Document(s) glucose, fasting 237 mg/dL 70-100 Above high normal Glucose, Fas ting CYNDI ([facility]) blood urea nitrogen 17 mg/dL 7-18 Blood Urea Nitro gen CYNDI ([facility]) creatinine for GFR 1.43 mg/dL 0.55-1.30 Above high normal Creatinine for GFR ARMSTRONG ([facility]) glomerular filtration rate >60 Below low normal Mariza merular Filtration Rate CYNDI ([facility]) sodium level 143 mEq/L 136-145 Sodium Level CYNDI ([facility]) potassium serum 4.0 mEq/L 3.5-5.1 Potassium Serum ATHE NA ([facility]) chloride level 115 mEq/L 98-107 Above high normal Chloride Level ARMSTRONG ([facility]) carbon dioxide level 11 mEq/L 21-32 Below low normal Carbon Di oxide Level ARMSTRONG ([facility]) anion gap 17 mEq/L 8-16 Above high normal Anion Gap ARMSTRONG ([facility]) calcium level 9.2 mg/dL 8.5-10.1 Calcium Level ARMSTRONG ( [facility]) ID Date Data Source [id number] 03/30/2021 08:36:00 AM EDT [facility]) Name Value Range Interpretation Code Description Data Claribel rce(s) Supporting Document(s) osmolality serum 317 mOsm/kg 275-295 Above high normal Osmolality Serum ARMSTRONG ([facility]) ID Date Data Source [id number] 03/30/2021 08:36:00 AM EDT [facility]) Name Value Range Interpretation Code Description Data Claribel rce(s) Supporting Document(s) magnesium level 2.0 mg/dL 1.8-2.4 [facility] Data Source [id number] 03/30/2021 08:36:00 AM EDT ARMSTRONG ([facility]) Name Value Range Interpretation Code Description Data Claribel rce(s) Supporting Document(s) phosphorus level 1.4 mg/dL 2.5-4.9 Below low normal Phosphorus Le karma CYNDI ([facility]) ID Date Data Source [id number] 03/30/2021 08:36:00 AM EDT ARMSTRONG ([facility]) Name Value Range Interpretation Code Description Data Claribel rce(s) Supporting Document(s) glucose, fasting 237 mg/dL 70-100 Above high normal Glucose, Fas ting ARMSTRONG ([facility]) blood urea nitrogen 17 mg/dL 7-18 Blood Urea Nitro gen ARMSTRONG ([facility]) creatinine for GFR 1.43 mg/dL 0.55-1.30 Above high normal Creatinine for GFR ARMSTRONG ([facility]) glomerular filtration rate >60 Below low normal Mariza merular Filtration Rate ARMSTRONG ([facility]) sodium level 143 mEq/L 136-145 Sodium Level CYNDI (No [facility]) potassium serum 4.0 mEq/L 3.5-5.1 Potassium Serum ATH NA ([facility]) chloride level 115 mEq/L 98-107 Above high normal Chloride Level ARMSTRONG ([facility]) carbon dioxide level 11 mEq/L 21-32 Below low normal Carbon Di oxide Level ARMSTRONG ([facility]) anion gap 17 mEq/L 8-16 Above high normal Anion Gap ARMSTRONG ([facility]) calcium level 9.2 mg/dL 8.5-10.1 Calcium Level ARMSTRONG ( [facility]) ID Date Data Source [id number] 03/30/2021 07:48:00 AM EDT [facility]) Name Value Range Interpretation Code Description Data Claribel rce(s) Supporting Document(s) bedside glucose 327 mg/dL 70-105 Above high normal Bedside Gluco se ARMSTRONG ([facility]) ID Date Data Source [id number] 03/30/2021 07:48:00 AM EDT [facility]) Name Value Range Interpretation Code Description Data Claribel rce(s) Supporting Document(s) bedside glucose 327 mg/dL 70-105 Above high normal Bedside Gluco se [facility]) ID Date Data Source [id number] 03/30/2021 07:48:00 AM EDT [facility]) Name Value Range Interpretation Code Description Data Claribel rce(s) Supporting Document(s) bedside glucose 327 mg/dL 70-105 Above high normal Bedside Gluco se [facility]) ID Date Data Source [id number] 03/30/2021 06:39:00 AM EDT [facility]) Name Value Range Interpretation Code Description Data Claribel rce(s) Supporting Document(s) bedside glucose 373 mg/dL 70-105 Above high normal Bedside Gluco se [facility]) ID Date Data Source [id number] 03/30/2021 06:39:00 AM EDT [facility]) Name Value Range Interpretation Code Description Data Claribel rce(s) Supporting Document(s) bedside glucose 373 mg/dL 70-105 Above high normal Bedside Gluco se [facility]) ID Date Data Source [id number] 03/30/2021 06:39:00 AM EDT [facility]) Name Value Range Interpretation Code Description Data Claribel rce(s) Supporting Document(s) bedside glucose 373 mg/dL 70-105 Above high normal Bedside Gluco se [facility]) ID Date Data Source [id number] 03/30/2021 05:00:00 AM EDT [facility]) Name Value Range Interpretation Code Description Data Claribel rce(s) Supporting Document(s) bedside glucose 344 mg/dL 70-105 Above high normal Bedside Gluco se [facility]) ID Date Data Source [id number] 03/30/2021 05:00:00 AM EDT [facility]) Name Value Range Interpretation Code Description Data Claribel rce(s) Supporting Document(s) bedside glucose 344 mg/dL 70-105 Above high normal Bedside Gluco se [facility]) ID Date Data Source [id number] 03/30/2021 05:00:00 AM EDT [facility]) Name Value Range Interpretation Code Description Data Claribel rce(s) Supporting Document(s) bedside glucose 344 mg/dL 70-105 Above high normal Bedside Gluco se [facility]) ID Date Data Source [id number] 03/30/2021 03:53:00 AM EDT [facility]) Name Value Range Interpretation Code Description Data Claribel rce(s) Supporting Document(s) osmolality serum 322 mOsm/kg 275-295 Above high normal Osmolality Serum [facility]) ID Date Data Source [id number] 03/30/2021 03:53:00 AM EDT [facility]) Name Value Range Interpretation Code Description Data Claribel rce(s) Supporting Document(s) osmolality serum 322 mOsm/kg 275-295 Above high normal Osmolality Serum [facility]) ID Date Data Source [id number] 03/30/2021 03:53:00 AM EDT [facility]) Name Value Range Interpretation Code Description Data Claribel rce(s) Supporting Document(s) lipase 63 U/L 73-393 Below low normal Lipase [facility]) ID Date Data Source [id number] 03/30/2021 03:53:00 AM EDT ARMSTRONG ([facility]) Name Value Range Interpretation Code Description Data Claribel rce(s) Supporting Document(s) phosphorus level 2.9 mg/dL 2.5-4.9 Phosphorus Level AT [facility]) ID Date Data Source [id number] 03/30/2021 03:53:00 AM EDT ARMSTRONG ([facility]) Name Value Range Interpretation Code Description Data Claribel rce(s) Supporting Document(s) glucose, fasting 332 mg/dL 70-100 Above high normal Glucose, Fas ting ARMSTRONG ([facility]) blood urea nitrogen 18 mg/dL 7-18 Blood Urea Nitro gen ARMSTRONG ([facility]) creatinine for GFR 1.19 mg/dL 0.55-1.30 Creatinine for GF R ARMSTRONG ([facility]) glomerular filtration rate >60 Below low normal Mariza merular Filtration Rate ARMSTRONG ([facility]) sodium level 140 mEq/L 136-145 Sodium Level ARMSTRONG ([facility]) potassium serum 4.5 mEq/L 3.5-5.1 Potassium Serum ATH NA ([facility]) chloride level 112 mEq/L 98-107 Above high normal Chloride Level ARMSTRONG ([facility]) carbon dioxide level 8 mEq/L 21-32 Below low normal Carbon Di oxide Level ARMSTRONG ([facility]) anion gap 20 mEq/L 8-16 Above high normal Anion Gap ARMSTRONG ([facility]) calcium level 8.3 mg/dL 8.5-10.1 Below low normal Calcium Level AT [facility]) ID Date Data Source [id number] 03/30/2021 03:53:00 AM EDT [facility]) Name Value Range Interpretation Code Description Data Claribel rce(s) Supporting Document(s) Hemoglobin A1c/Hemoglobin.total in Blood 11.3 % Hemoglobin a1C [facility]) estimated average glucose 278 mg/dL 60-110 Above high norm al Estimated Average Glucose CYNDI ([facility]) ID Date Data Source [id number] 03/30/2021 03:53:00 AM EDT [facility]) Name Value Range Interpretation Code Description Data Claribel rce(s) Supporting Document(s) venous pH 7.174 units 7.330-7.430 Below low normal Venous pH CYNDI ([facility]) venous partial pressure CO2 19.8 mmHg 38.0-50.0 Below low nor mal Venous Partial Pressure CO2 ARMSTRONG ([facility]) venous partial pressure O2 139.4 mmHg 30.0-50.0 Above high nor mal Venous Partial Pressure O2 ARMSTRONG ([facility]) venous total CO2 7.7 mEq/L 24.0-28.0 Below low normal Venous Total CO2 ARMSTRONG ([facility]) venous HCO3 7.1 mEq/L 23.0-27.0 Below low normal Venous HCO3 CYNDI ([facility]) venous base excess -2.0-2.0 Below low normal Venous Base Excess CYNDI ([facility]) venous standard HCO3 10.4 mEq/L Venous Standard HCO3 ARMSTRONG ([facility]) venous O2 saturation 98.8 % 60.0-80.0 Above high normal Venous O 2 Saturation ARMSTRONG ([facility]) venous site unknown Venous Site CYNDI ([facility]) ID Date Data Source [id number] 03/30/2021 03:53:00 AM EDT [facility]) Name Value Range Interpretation Code Description Data Claribel rce(s) Supporting Document(s) osmolality serum 322 mOsm/kg 275-295 Above high normal Osmolality Serum [facility]) ID Date Data Source [id number] 03/30/2021 03:53:00 AM EDT [facility]) Name Value Range Interpretation Code Description Data Claribel rce(s) Supporting Document(s) lipase 63 U/L 73-393 Below low normal Lipase ARMSTRONG ( [facility]) ID Date Data Source [id number] 03/30/2021 03:53:00 AM EDT [facility] ([facility]) Name Value Range Interpretation Code Description Data Claribel rce(s) Supporting Document(s) phosphorus level 2.9 mg/dL 2.5-4.9 Phosphorus Level AT [facility]) ID Date Data Source [id number] 03/30/2021 03:53:00 AM EDT [facility]) Name Value Range Interpretation Code Description Data Claribel rce(s) Supporting Document(s) glucose, fasting 332 mg/dL 70-100 Above high normal Glucose, Fas ting [facility] ([facility]) blood urea nitrogen 18 mg/dL 7-18 Blood Urea Nitro gen [facility] ([facility]) creatinine for GFR 1.19 mg/dL 0.55-1.30 Creatinine for GF R [facility] ([facility]) glomerular filtration rate >60 Below low normal Mariza merular Filtration Rate [facility] ([facility]) sodium level 140 mEq/L 136-145 Sodium Level [facility] ([facility]) potassium serum 4.5 mEq/L 3.5-5.1 Potassium Serum ATH NA ([facility]) chloride level 112 mEq/L 98-107 Above high normal Chloride Level [facility] ([facility]) carbon dioxide level 8 mEq/L 21-32 Below low normal Carbon Di oxide Level [facility] ([facility]) anion gap 20 mEq/L 8-16 Above high normal Anion Gap [facility] ([facility]) calcium level 8.3 mg/dL 8.5-10.1 Below low normal Calcium Level AT [facility]) ID Date Data Source [id number] 03/30/2021 03:53:00 AM EDT [facility]) Name Value Range Interpretation Code Description Data Claribel rce(s) Supporting Document(s) Hemoglobin A1c/Hemoglobin.total in Blood 11.3 % Hemoglobin a1C [facility] ([facility]) estimated average glucose 278 mg/dL 60-110 Above high norm al Estimated Average Glucose [facility] ([facility]) ID Date Data Source [id number] 03/30/2021 03:53:00 AM EDT [facility]) Name Value Range Interpretation Code Description Data Claribel rce(s) Supporting Document(s) venous pH 7.174 units 7.330-7.430 Below low normal Venous pH [facility] ([facility]) venous partial pressure CO2 19.8 mmHg 38.0-50.0 Below low nor mal Venous Partial Pressure CO2 [facility] ([facility]) venous partial pressure O2 139.4 mmHg 30.0-50.0 Above high nor mal Venous Partial Pressure O2 [facility] ([facility]) venous total CO2 7.7 mEq/L 24.0-28.0 Below low normal Venous Total CO2 [facility] ([facility]) venous HCO3 7.1 mEq/L 23.0-27.0 Below low normal Venous HCO3 [facility] ([facility]) venous base excess -2.0-2.0 Below low normal Venous Base Excess [facility] ([facility]) venous standard HCO3 10.4 mEq/L Venous Standard HCO3 [facility] ([facility]) venous O2 saturation 98.8 % 60.0-80.0 Above high normal Venous O 2 Saturation [facility] ([facility]) venous site unknown Venous Site [facility] ([facility]) ID Date Data Source [id number] 03/30/2021 03:53:00 AM EDT [facility] ([facility]) Name Value Range Interpretation Code Description Data Claribel rce(s) Supporting Document(s) lipase 63 U/L 73-393 Below low normal Lipase [facility]) ID Date Data Source [id number] 03/30/2021 03:53:00 AM EDT [facility]) Name Value Range Interpretation Code Description Data Claribel rce(s) Supporting Document(s) phosphorus level 2.9 mg/dL 2.5-4.9 Phosphorus Level AT [facility] ([facility]) ID Date Data Source [id number] 03/30/2021 03:53:00 AM EDT [facility] ([facility]) Name Value Range Interpretation Code Description Data Claribel rce(s) Supporting Document(s) glucose, fasting 332 mg/dL 70-100 Above high normal Glucose, Fas ting [facility] ([facility]) blood urea nitrogen 18 mg/dL 7-18 Blood Urea Nitro gen [facility] ([facility]) creatinine for GFR 1.19 mg/dL 0.55-1.30 Creatinine for GF R [facility] ([facility]) glomerular filtration rate >60 Below low normal Mariza merular Filtration Rate [facility] ([facility]) sodium level 140 mEq/L 136-145 Sodium Level [facility] ([facility]) potassium serum 4.5 mEq/L 3.5-5.1 Potassium Serum ATH NA ([facility]) chloride level 112 mEq/L 98-107 Above high normal Chloride Level [facility] ([facility]) carbon dioxide level 8 mEq/L 21-32 Below low normal Carbon Di oxide Level [facility] ([facility]) anion gap 20 mEq/L 8-16 Above high normal Anion Gap [facility] ([facility]) calcium level 8.3 mg/dL 8.5-10.1 Below low normal Calcium Level AT [facility]) ID Date Data Source [id number] 03/30/2021 03:53:00 AM EDT [facility] ([facility]) Name Value Range Interpretation Code Description Data Claribel rce(s) Supporting Document(s) Hemoglobin A1c/Hemoglobin.total in Blood 11.3 % Hemoglobin a1C [facility] ([facility]) estimated average glucose 278 mg/dL 60-110 Above high norm al Estimated Average Glucose [facility]) ID Date Data Source [id number] 03/30/2021 03:53:00 AM EDT [facility] ([facility]) Name Value Range Interpretation Code Description Data Claribel rce(s) Supporting Document(s) venous pH 7.174 units 7.330-7.430 Below low normal Venous pH [facility] ([facility]) venous partial pressure CO2 19.8 mmHg 38.0-50.0 Below low nor mal Venous Partial Pressure CO2 [facility] ([facility]) venous partial pressure O2 139.4 mmHg 30.0-50.0 Above high nor mal Venous Partial Pressure O2 [facility] ([facility]) venous total CO2 7.7 mEq/L 24.0-28.0 Below low normal Venous Total CO2 [facility] ([facility]) venous HCO3 7.1 mEq/L 23.0-27.0 Below low normal Venous HCO3 [facility] ([facility]) venous base excess -2.0-2.0 Below low normal Venous Base Excess [facility] ([facility]) venous standard HCO3 10.4 mEq/L Venous Standard HCO3 [facility] ([facility]) venous O2 saturation 98.8 % 60.0-80.0 Above high normal Venous O 2 Saturation [facility] ([facility]) venous site unknown Venous Site [facility] ([facility]) ID Date Data Source [id number] 03/30/2021 03:18:00 AM EDT [facility] ([facility]) Name Value Range Interpretation Code Description Data Claribel rce(s) Supporting Document(s) bedside glucose 292 mg/dL 70-105 Above high normal Bedside Gluco se [facility] ([facility]) ID Date Data Source [id number] 03/30/2021 03:18:00 AM EDT [facility]) Name Value Range Interpretation Code Description Data Claribel rce(s) Supporting Document(s) bedside glucose 292 mg/dL 70-105 Above high normal Bedside Gluco se [facility] ([facility]) ID Date Data Source [id number] 03/30/2021 03:18:00 AM EDT [facility] ([facility]) Name Value Range Interpretation Code Description Data Claribel rce(s) Supporting Document(s) bedside glucose 292 mg/dL 70-105 Above high normal Bedside Gluco se [facility] ([facility]) ID Date Data Source [id number] 03/30/2021 12:18:00 AM EDT [facility] ([facility]) Name Value Range Interpretation Code Description Data Claribel rce(s) Supporting Document(s) istat B-HCG < 5.0 Istat B-HCG [facility] ([facility]) ID Date Data Source [id number] 03/30/2021 12:18:[facility] Name Value Range Interpretation Code Description Data Claribel rce(s) Supporting Document(s) istat B-HCG < 5.0 Istat B-HCG [facility] ([facility]) ID Date Data Source [id number] 03/30/2021 12:18:00 AM [facility] Name Value Range Interpretation Code Description Data Claribel rce(s) Supporting Document(s) istat B-HCG < 5.0 Istat B-HCG [facility] ([facility]) ID Date Data Source [id number] 03/30/2021 12:15:00 AM EDT [facility] ([facility]) Name Value Range Interpretation Code Description Data Claribel rce(s) Supporting Document(s) istat HCT 41.0 % 38.0-51.0 Istat HCT [facility] ([facility]) istat glucose 317 mg/dL 70-105 Above high normal Istat Glucose A [facility] ([facility]) istat sodium 137 mEq/L 136-145 Istat Sodium [facility] ([facility]) istat potassium 5.1 mEq/L 3.5-5.1 Istat Potassium ATHE NA ([facility]) istat Ca++ 5.3 mg/dL 4.5-5.3 Istat Ca++ [facility] ([facility]) istat chloride 112 mEq/L 98-109 Above high normal Istat Chloride [facility] ([facility]) istat CO2 12.0 mm/L 23.0-27.0 Below low normal Istat CO2 [facility] ( [facility]) istat BUN 27 mg/dL 8-26 Above high normal Istat BUN [facility] ([facility]) istat creatinine 1.0 mg/dL 0.6-1.3 Istat Creatinine AT [facility]) ID Date Data Source [id number] 03/30/2021 12:15:00 AM EDT [facility] ([facility]) Name Value Range Interpretation Code Description Data Claribel rce(s) Supporting Document(s) istat HCT 41.0 % 38.0-51.0 Istat HCT [facility] ([facility]) istat glucose 317 mg/dL 70-105 Above high normal Istat Glucose A [facility] ([facility]) istat sodium 137 mEq/L 136-145 Istat Sodium [facility] ([facility]) istat potassium 5.1 mEq/L 3.5-5.1 Istat Potassium ATHE NA ([facility]) istat Ca++ 5.3 mg/dL 4.5-5.3 Istat Ca++ [facility] ([facility]) istat chloride 112 mEq/L 98-109 Above high normal Istat Chloride [facility] ([facility]) istat CO2 12.0 mm/L 23.0-27.0 Below low normal Istat CO2 [facility] ( [facility]) istat BUN 27 mg/dL 8-26 Above high normal Istat BUN [facility] ([facility]) istat creatinine 1.0 mg/dL 0.6-1.3 Istat Creatinine AT [facility]) ID Date Data Source [id number] 03/30/2021 12:15:00 AM EDT [facility]) Name Value Range Interpretation Code Description Data Claribel rce(s) Supporting Document(s) istat HCT 41.0 % 38.0-51.0 Istat HCT [facility] ([facility]) istat glucose 317 mg/dL 70-105 Above high normal Istat Glucose [place] ([facility]) istat sodium 137 mEq/L 136-145 Istat Sodium [facility] ([facility]) istat potassium 5.1 mEq/L 3.5-5.1 Istat Potassium ATH NA ([facility]) istat Ca++ 5.3 mg/dL 4.5-5.3 Istat Ca++ [facility] ([facility]) istat chloride 112 mEq/L 98-109 Above high normal Istat Chloride [facility] ([facility]) istat CO2 12.0 mm/L 23.0-27.0 Below low normal Istat CO2 [facility] ( [facility]) istat BUN 27 mg/dL 8-26 Above high normal Istat BUN [facility] ([facility]) istat creatinine 1.0 mg/dL 0.6-1.3 Istat Creatinine AT [facility]) ID Date Data Source [id number] 03/29/2021 11:54:00 PM EDT [facility] ([facility]) Name Value Range Interpretation Code Description Data Claribel rce(s) Supporting Document(s) appearance, urine rfx clear clear Appearance, Ur ine Rfx [facility] ([facility]) color, urine rfx yellow yellow Color, Urine Rfx AT [facility] ([facility]) pH,urine rfx 6.0 units 5.0-9.0 pH,urine Rfx [facility] ([facility]) specific gravity ur auto rfx 1.002-1.035 Specif ic [place] Ur Auto Rfx [facility] ([facility]) protein, urine auto rfx 3+ negative Above high normal Prote in, Urine Auto Rfx [facility] ([facility]) glucose, urine (UA) auto rfx 3+ negative Above high n ormal Glucose, Urine (UA) Auto Rfx [facility] ([facility]) ketone, urine auto rfx 2+ negative Above high normal Ketone , Urine Auto Rfx [facility] ([facility]) urobilinogen, urine auto rfx 0.2 mg/dL 0.0-2.0 Urobili nogen, Urine Auto Rfx [facility] ([facility]) bilirubin, urine auto rfx negative negative Bilirubin, Urine Auto Rfx [facility] ([facility]) nitrite, urine auto rfx negative negative Nitrite, Uri ne Auto Rfx [facility] ([facility]) leukocyte esterase ur auto rfx negative negative Leukocyte Esterase Ur Auto Rfx [facility] ([facility]) blood, urine blood rfx 1+ negative Above high normal Blood, Urine Blood Rfx [facility] ([facility]) WBC, urine auto rfx 1 /hpf 0-3 WBC, Urine Auto Rfx [facility] ([facility]) RBC, urine auto rfx 3 /hpf 0-3 RBC, Urine Auto Rfx [facility] ([facility]) bacteria, urine auto rfx negative negative Bacteria, U rine Auto Rfx [facility] ([facility]) squam epithelial cell ur aurfx 0 /hpf 0-6 Squam Epithelial Cell Ur Aurfx [facility] ([facility]) mucus, urine rfx small negative Mucus, Urine Rfx AT [facility] ([facility]) hyaline cast, urine auto rfx 8 /lpf 0-1 Hyaline Cast, Urine Auto Rfx [facility] ([facility]) ID Date Data Source [id number] 03/29/2021 11:54:00 PM EDT [facility] ([facility]) Name Value Range Interpretation Code Description Data Claribel rce(s) Supporting Document(s) acetone/ketone > 46.00 <2.81 Above high normal Acetone/ketone [facility]) ID Date Data Source [id number] 03/29/2021 11:54:00 PM EDT [facility] ([facility]) Name Value Range Interpretation Code Description Data Claribel rce(s) Supporting Document(s) white blood count 5.8 10 4.0-10.0 White Blood Count [facility] ([facility]) red blood count 4.70 10 4.00-5.40 Red Blood Count ATHE NA ([facility]) hemoglobin 13.8 g/dL 12.0-15.5 Hemoglobin [facility] ([facility]) hematocrit 42.5 % 36.0-47.0 Hematocrit [facility] ([facility]) mean corpuscular volume 90.4 fL 80.0-96.0 Mean Corpusc ular Volume [facility] ([facility]) mean corpuscular hemoglobin 29.4 pg 27.0-33.0 Mean Cor puscular Hemoglobin [facility] ([facility]) mean corpuscular HGB conc 32.5 g/dL 32.0-36.5 Mean Corpu scular HGB Conc [facility] ([facility]) red cell distribution width 12.0 % 11.5-14.5 Red Cell Distribution Width [facility] ([facility]) platelet count, automated 295 10 150-450 Platelet C ount, Automated [facility] ([facility]) neutrophils % 80.7 % 36.0-66.0 Above high normal Neutrophils % A [facility] ([facility]) lymph % 14.0 % 24.0-44.0 Below low normal Lymph % [facility] ( [facility]) mono % 4.3 % 2.0-8.0 [place] % [facility] ([facility]) eos % 0.0 % 0.0-3.0 Eos % [facility] ([facility]) baso % 0.3 % 0.0-1.0 Baso % [facility] ([facility]) immature granulocyte % 0.7 % 0-3.0 Immature Gran ulocyte % [facility] ([facility]) nucleated red blood cell % 0.0 % 0-0 Nucleated Red Blood Cell % [facility] ([facility]) neutrophils # 4.7 10 1.5-8.5 Neutrophils # [facility] ( [facility]) lymph # 0.8 10 1.5-5.0 Below low normal Lymph # [facility] ( [facility]) mono # 0.3 10 0.0-0.8 [place] # [facility] ([facility]) eos # 0.0 10 0.0-0.5 Eos # [facility] ([facility]) baso # 0.0 10 0.0-0.2 Baso # [facility] ([facility]) ID Date Data Source [id number] 03/29/2021 11:54:00 PM EDT [facility] ([facility]) Name Value Range Interpretation Code Description Data Claribel rce(s) Supporting Document(s) venous pH 7.148 units 7.330-7.430 Below low normal Venous pH [facility] ([facility]) venous partial pressure CO2 26.3 mmHg 38.0-50.0 Below low nor mal Venous Partial Pressure CO2 [facility] ([facility]) venous partial pressure O2 43.7 mmHg 30.0-50.0 Venous Pa rtial Pressure O2 [facility] ([facility]) venous total CO2 9.7 mEq/L 24.0-28.0 Below low normal Venous Total CO2 [facility] ([facility]) venous HCO3 8.9 mEq/L 23.0-27.0 Below low normal Venous HCO3 [facility] ([facility]) venous base excess -2.0-2.0 Below low normal Venous Base Excess [facility] ([facility]) venous standard HCO3 10.8 mEq/L Venous Standard HCO3 [facility] ([facility]) venous O2 saturation 77.5 % 60.0-80.0 Venous O2 Satur ation [facility] ([facility]) ID Date Data Source [id number] 03/29/2021 11:54:00 PM EDT [facility] ([facility]) Name Value Range Interpretation Code Description Data Claribel rce(s) Supporting Document(s) acetone/ketone > 46.00 <2.81 Above high normal Acetone/ketone [facility] ([facility]) ID Date Data Source [id number] 03/29/2021 11:54:00 PM EDT [facility] ([facility]) Name Value Range Interpretation Code Description Data Claribel rce(s) Supporting Document(s) white blood count 5.8 10 4.0-10.0 White Blood Count [facility] ([facility]) red blood count 4.70 10 4.00-5.40 Red Blood Count ATHE NA ([facility]) hemoglobin 13.8 g/dL 12.0-15.5 Hemoglobin [facility] ([facility]) mean corpuscular volume 90.4 fL 80.0-96.0 Mean Corpusc ular Volume [facility] ([facility]) hematocrit 42.5 % 36.0-47.0 Hematocrit [facility] ([facility]) mean corpuscular hemoglobin 29.4 pg 27.0-33.0 Mean Cor puscular Hemoglobin [facility] ([facility]) mean corpuscular HGB conc 32.5 g/dL 32.0-36.5 Mean Corpu scular HGB Conc [facility] ([facility]) red cell distribution width 12.0 % 11.5-14.5 Red Cell Distribution Width [facility] ([facility]) platelet count, automated 295 10 150-450 Platelet C ount, Automated [facility] ([facility]) neutrophils % 80.7 % 36.0-66.0 Above high normal Neutrophils % A [facility] ([facility]) lymph % 14.0 % 24.0-44.0 Below low normal Lymph % [facility] ( [facility]) eos % 0.0 % 0.0-3.0 Eos % [facility] ([facility]) mono % 4.3 % 2.0-8.0 [place] % [facility] ([facility]) baso % 0.3 % 0.0-1.0 Baso % [facility] ([facility]) immature granulocyte % 0.7 % 0-3.0 Immature Gran ulocyte % [facility] ([facility]) nucleated red blood cell % 0.0 % 0-0 Nucleated Red Blood Cell % [facility] ([facility]) neutrophils # 4.7 10 1.5-8.5 Neutrophils # [facility] ( [facility]) lymph # 0.8 10 1.5-5.0 Below low normal Lymph # [facility] ( [facility]) mono # 0.3 10 0.0-0.8 [place] # [facility] ([facility]) eos # 0.0 10 0.0-0.5 Eos # [facility] ([facility]) baso # 0.0 10 0.0-0.2 Baso # [facility] ([facility]) ID Date Data Source [id number] 03/29/2021 11:54:00 PM EDT [facility] ([facility]) Name Value Range Interpretation Code Description Data Claribel rce(s) Supporting Document(s) venous pH 7.148 units 7.330-7.430 Below low normal Venous pH [facility] ([facility]) venous partial pressure CO2 26.3 mmHg 38.0-50.0 Below low nor mal Venous Partial Pressure CO2 [facility] ([facility]) venous partial pressure O2 43.7 mmHg 30.0-50.0 Venous Pa rtial Pressure O2 [facility] ([facility]) venous total CO2 9.7 mEq/L 24.0-28.0 Below low normal Venous Total CO2 [facility] ([facility]) venous base excess -2.0-2.0 Below low normal Venous Base Excess [facility] ([facility]) venous HCO3 8.9 mEq/L 23.0-27.0 Below low normal Venous HCO3 [facility] ([facility]) venous standard HCO3 10.8 mEq/L Venous Standard HCO3 [facility] ([facility]) venous O2 saturation 77.5 % 60.0-80.0 Venous O2 Satur ation [facility] ([facility]) ID Date Data Source [id number] 03/29/2021 11:54:00 PM EDT [facility] ([facility]) Name Value Range Interpretation Code Description Data Claribel rce(s) Supporting Document(s) appearance, urine rfx clear clear Appearance, Ur ine Rfx [facility] ([facility]) color, urine rfx yellow yellow Color, Urine Rfx AT [facility] ([facility]) pH,urine rfx 6.0 units 5.0-9.0 pH,urine Rfx [facility] ([facility]) specific gravity ur auto rfx 1.002-1.035 Specif ic [place] Ur Auto Rfx [facility] ([facility]) protein, urine auto rfx 3+ negative Above high normal Prote in, Urine Auto Rfx [facility] ([facility]) glucose, urine (UA) auto rfx 3+ negative Above high n ormal Glucose, Urine (UA) Auto Rfx [facility] ([facility]) ketone, urine auto rfx 2+ negative Above high normal Ketone , Urine Auto Rfx [facility] ([facility]) urobilinogen, urine auto rfx 0.2 mg/dL 0.0-2.0 Urobili nogen, Urine Auto Rfx [facility] ([facility]) bilirubin, urine auto rfx negative negative Bilirubin, Urine Auto Rfx [facility] ([facility]) nitrite, urine auto rfx negative negative Nitrite, Uri ne Auto Rfx [facility] ([facility]) leukocyte esterase ur auto rfx negative negative Leukocyte Esterase Ur Auto Rfx [facility] ([facility]) blood, urine blood rfx 1+ negative Above high normal Blood, Urine Blood Rfx [facility] ([facility]) WBC, urine auto rfx 1 /hpf 0-3 WBC, Urine Auto Rfx [facility] ([facility]) RBC, urine auto rfx 3 /hpf 0-3 RBC, Urine Auto Rfx [facility] ([facility]) bacteria, urine auto rfx negative negative Bacteria, U rine Auto Rfx [place] ([facility]) squam epithelial cell ur aurfx 0 /hpf 0-6 Squam Epithelial Cell Ur Aurfx [place] ([facility]) mucus, urine rfx small negative Mucus, Urine Rfx AT [facility] ([facility]) hyaline cast, urine auto rfx 8 /lpf 0-1 Hyaline Cast, Urine Auto Rfx [place] ([facility]) ID Date Data Source [id number] 03/29/2021 11:54:00 PM EDT CY[facility] ([facility]) Name Value Range Interpretation Code Description Data Claribel rce(s) Supporting Document(s) acetone/ketone > 46.00 <2.81 Above high normal Acetone/ketone [facility] ([facility]) ID Date Data Source [id number] 03/29/2021 11:54:00 PM EDT [facility] ([facility]) Name Value Range Interpretation Code Description Data Claribel rce(s) Supporting Document(s) white blood count 5.8 10 4.0-10.0 White Blood Count [facility] ([facility]) red blood count 4.70 10 4.00-5.40 Red Blood Count ATHE ([facility]) hemoglobin 13.8 g/dL 12.0-15.5 Hemoglobin [facility]I ([facility]) hematocrit 42.5 % 36.0-47.0 Hematocrit [facility] ([facility]) mean corpuscular volume 90.4 fL 80.0-96.0 Mean Corpusc ular Volume [facility] ([facility]) mean corpuscular hemoglobin 29.4 pg 27.0-33.0 Mean Cor puscular Hemoglobin [facility] ([facility]) mean corpuscular HGB conc 32.5 g/dL 32.0-36.5 Mean Corpu scular HGB Conc [facility] ([facility]) red cell distribution width 12.0 % 11.5-14.5 Red Cell Distribution Width [facility] ([facility]) platelet count, automated 295 10 150-450 Platelet C ount, Automated [facility] ([facility]) neutrophils % 80.7 % 36.0-66.0 Above high normal Neutrophils % A THENA ([facility]) lymph % 14.0 % 24.0-44.0 Below low normal Lymph % CYNDI ( [facility]) mono % 4.3 % 2.0-8.0 Valley % [facility]I ([facility]) eos % 0.0 % 0.0-3.0 Eos % [facility] ([facility]) baso % 0.3 % 0.0-1.0 Baso % [facility] ([facility]) immature granulocyte % 0.7 % 0-3.0 Immature Gran ulocyte % CY[facility]I ([facility]) nucleated red blood cell % 0.0 % 0-0 Nucleated Red Blood Cell % [facility] ([facility]) lymph # 0.8 10 1.5-5.0 Below low normal Lymph # CYNDI ( [facility]) neutrophils # 4.7 10 1.5-8.5 Neutrophils # [facility]I ( [facility]) mono # 0.3 10 0.0-0.8 Valley # [facility]I ([facility]) eos # 0.0 10 0.0-0.5 Eos # [facility] ([facility]) baso # 0.0 10 0.0-0.2 Baso # [facility]I ([facility]) ID Date Data Source [id number] 03/29/2021 11:54:00 PM EDT [place] ([facility]) Name Value Range Interpretation Code Description Data Claribel rce(s) Supporting Document(s) venous pH 7.148 units 7.330-7.430 Below low normal Venous pH [facility] ([facility]) venous partial pressure CO2 26.3 mmHg 38.0-50.0 Below low nor mal Venous Partial Pressure CO2 [facility] ([facility]) venous partial pressure O2 43.7 mmHg 30.0-50.0 Venous Pa rtial Pressure O2 [facility] ([facility]) venous total CO2 9.7 mEq/L 24.0-28.0 Below low normal Venous Total CO2 [facility] ([facility]) venous HCO3 8.9 mEq/L 23.0-27.0 Below low normal Venous HCO3 [facility] ([facility]) venous base excess -2.0-2.0 Below low normal Venous Base Excess [facility] ([facility]) venous standard HCO3 10.8 mEq/L Venous Standard HCO3 [facility] ([facility]) venous O2 saturation 77.5 % 60.0-80.0 Venous O2 Satur ation [facility] ([facility]) ID Date Data Source [id number] 03/29/2021 11:54:00 PM EDT [place] ([facility]) Name Value Range Interpretation Code Description Data Claribel rce(s) Supporting Document(s) color, urine rfx yellow yellow Color, Urine Rfx AT [place] ([facility]) appearance, urine rfx clear clear Appearance, Ur ine Rfx [place] ([facility]) pH,urine rfx 6.0 units 5.0-9.0 pH,urine Rfx [facility] ([facility]) specific gravity ur auto rfx 1.002-1.035 Specif ic [place] Ur Auto Rfx [place] ([facility]) protein, urine auto rfx 3+ negative Above high normal Prote in, Urine Auto Rfx [place] ([facility]) glucose, urine (UA) auto rfx 3+ negative Above high n ormal Glucose, Urine (UA) Auto Rfx [place] ([facility]) ketone, urine auto rfx 2+ negative Above high normal Ketone , Urine Auto Rfx [place] ([facility]) bilirubin, urine auto rfx negative negative Bilirubin, Urine Auto Rfx [place] ([facility]) urobilinogen, urine auto rfx 0.2 mg/dL 0.0-2.0 Urobili nogen, Urine Auto Rfx [place] ([facility]) nitrite, urine auto rfx negative negative Nitrite, Uri ne Auto Rfx [place] ([facility]) leukocyte esterase ur auto rfx negative negative Leukocyte Esterase Ur Auto Rfx [place] ([facility]) blood, urine blood rfx 1+ negative Above high normal Blood, Urine Blood Rfx [place] ([facility]) WBC, urine auto rfx 1 /hpf 0-3 WBC, Urine Auto Rfx [place] ([facility]) RBC, urine auto rfx 3 /hpf 0-3 RBC, Urine Auto Rfx [place] ([facility]) bacteria, urine auto rfx negative negative Bacteria, U rine Auto Rfx [place] ([facility]) squam epithelial cell ur aurfx 0 /hpf 0-6 Squam Epithelial Cell Ur Aurfx [place] ([facility]) mucus, urine rfx small negative Mucus, Urine Rfx AT [facility] ([facility]) hyaline cast, urine auto rfx 8 /lpf 0-1 Hyaline Cast, Urine Auto Rfx [place] ([facility]) ID Date Data Source [id number] 03/29/2021 09:58:00 PM EDT [facility]) Name Value Range Interpretation Code Description Data Claribel rce(s) Supporting Document(s) ID Date Data Source [id number] 03/29/2021 09:58:00 PM EDT [place] ([facility]) Name Value Range Interpretation Code Description Data Claribel rce(s) Supporting Document(s) ID Date Data Source [id number] 03/29/2021 09:58:00 PM EDT [facility] Name Value Range Interpretation Code Description Data Claribel rce(s) Supporting Document(s) SARS-CoV-2 (COVID 19) NEGATIVE - SARS-CoV-2 (COVID19) [facility] This lab was ordered by [facility] a nd reported by [facility]. ID Date Data Source [id number] 03/29/2021 09:58:00 PM EDT [facility]) Name Value Range Interpretation Code Description Data Claribel rce(s) Supporting Document(s) ID Date Data Source [id number] 03/26/2021 12:00:00 AM EDT [facility] Name Value Range Interpretation Code Description Data Claribel rce(s) Supporting Document(s) SARS-CoV2 Rapid Antigen Negative [facility] This lab was ordered by [facility] and reported by [facility]. 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 [id number] [file] ID Date Data Source [id number] 02/20/2021 01:30:12 PM EDT Health system Name Value Range Interpretation Code Description Data Claribel rce(s) Supporting Document(s) Progress Note [facility] [id number] lbm [file] [id number] ID Date Data Source [id number] 12/24/2020 12:00:00 AM EST [facility] Name Value Range Interpretation Code Description Data Claribel rce(s) Supporting Document(s) SARS coronavirus 2 RNA [Presence] in Res piratory specimen by ANDREE with probe detection NEGATIVE [facility] This lab was ordered by [facility] and reported by [facility]. ID Date Data Source [id number] 12/13/2020 09:35:00 AM EST [facility] ([facility]) Name Value Range Interpretation Code Description Data Claribel rce(s) Supporting Document(s) glucose, fasting 270 mg/dL 70-100 Above high normal Glucose, Fas ting [facility] ([facility]) blood urea nitrogen 13 mg/dL 7-18 Blood Urea Nitro gen [facility] ([facility]) creatinine for GFR 1.13 mg/dL 0.55-1.30 Creatinine for GF R [place] ([facility]) glomerular filtration rate >60 Below low normal Mariza merular Filtration Rate [facility] ([facility]) sodium level 140 mEq/L 136-145 Sodium Level [facility] ([facility]) potassium serum 4.0 mEq/L 3.5-5.1 Potassium Serum ATHE NA ([facility]) chloride level 111 mEq/L 98-107 Above high normal Chloride Level [facility] ([facility]) carbon dioxide level 19 mEq/L 21-32 Below low normal Carbon Di oxide Level [facility] ([facility]) anion gap 10 mEq/L 8-16 Anion Gap [facility] ([facility]) calcium level 9.4 mg/dL 8.5-10.1 Calcium Level [facility] ( [facility]) ID Date Data Source [id number] 12/13/2020 09:35:00 AM EST [facility] ([facility]) Name Value Range Interpretation Code Description Data Claribel rce(s) Supporting Document(s) white blood count 3.4 10 4.0-10.0 Below low normal White Blood Count [facility] ([facility]) red blood count 4.04 10 4.00-5.40 Red Blood Count AT[facility] ([facility]) hemoglobin 11.8 g/dL 12.0-15.5 Below low normal Hemoglobin [facility] ( [facility]) hematocrit 35.7 % 36.0-47.0 Below low normal Hematocrit [facility] ( [facility]) mean corpuscular volume 88.4 fL 80.0-96.0 Mean Corpusc ular Volume [facility] ([facility]) mean corpuscular hemoglobin 29.2 pg 27.0-33.0 Mean Cor puscular Hemoglobin [facility] ([facility]) mean corpuscular HGB conc 33.1 g/dL 32.0-36.5 Mean Corpu scular HGB Conc [facility] ([facility]) red cell distribution width 13.2 % 11.5-14.5 Red Cell Distribution Width [facility] ([facility]) platelet count, automated 162 10 150-450 Platelet C ount, Automated [facility] ([facility]) nucleated red blood cell % 0.0 % 0-0 Nucleated Red Blood Cell % [facility] ([facility]) ID Date Data Source [id number] 12/13/2020 09:35:00 AM EST [facility] ([facility]) Name Value Range Interpretation Code Description Data Claribel rce(s) Supporting Document(s) glucose, fasting 270 mg/dL 70-100 Above high normal Glucose, Fas ting [facility] ([facility]) blood urea nitrogen 13 mg/dL 7-18 Blood Urea Nitro gen [facility] ([facility]) creatinine for GFR 1.13 mg/dL 0.55-1.30 Creatinine for GF R [facility] ([facility]) glomerular filtration rate >60 Below low normal Mariza merular Filtration Rate [facility] ([facility]) sodium level 140 mEq/L 136-145 Sodium Level [facility] ([facility]) potassium serum 4.0 mEq/L 3.5-5.1 Potassium Serum ATHE NA ([facility]) chloride level 111 mEq/L 98-107 Above high normal Chloride Level [facility] ([facility]) carbon dioxide level 19 mEq/L 21-32 Below low normal Carbon Di oxide Level [facility]I ([facility]) anion gap 10 mEq/L 8-16 Anion Gap [facility] ([facility]) calcium level 9.4 mg/dL 8.5-10.1 Calcium Level [facility] ( [facility]) ID Date Data Source [id number] 12/13/2020 09:35:00 AM EST [facility] ([facility]) Name Value Range Interpretation Code Description Data Claribel rce(s) Supporting Document(s) white blood count 3.4 10 4.0-10.0 Below low normal White Blood Count [facility] ([facility]) red blood count 4.04 10 4.00-5.40 Red Blood Count AT[facility] ([facility]) hemoglobin 11.8 g/dL 12.0-15.5 Below low normal Hemoglobin [facility] ( [facility]) hematocrit 35.7 % 36.0-47.0 Below low normal Hematocrit [facility] ( [facility]) mean corpuscular volume 88.4 fL 80.0-96.0 Mean Corpusc ular Volume [facility] ([facility]) mean corpuscular hemoglobin 29.2 pg 27.0-33.0 Mean Cor puscular Hemoglobin [facility] ([facility]) mean corpuscular HGB conc 33.1 g/dL 32.0-36.5 Mean Corpu scular HGB Conc [facility] ([facility]) red cell distribution width 13.2 % 11.5-14.5 Red Cell Distribution Width [facility] ([facility]) platelet count, automated 162 10 150-450 Platelet C ount, Automated [facility] ([facility]) nucleated red blood cell % 0.0 % 0-0 Nucleated Red Blood Cell % [facility] ([facility]) ID Date Data Source [id number] 12/13/2020 09:35:00 AM EST [place] ([facility]) Name Value Range Interpretation Code Description Data Claribel rce(s) Supporting Document(s) glucose, fasting 270 mg/dL 70-100 Above high normal Glucose, Fas ting [facility] ([facility]) blood urea nitrogen 13 mg/dL 7-18 Blood Urea Nitro gen [facility] ([facility]) creatinine for GFR 1.13 mg/dL 0.55-1.30 Creatinine for GF R [facility] ([facility]) glomerular filtration rate >60 Below low normal Mariza merular Filtration Rate [facility]I ([facility]) sodium level 140 mEq/L 136-145 Sodium Level [facility] ([facility]) potassium serum 4.0 mEq/L 3.5-5.1 Potassium Serum ATHE NA ([facility]) chloride level 111 mEq/L 98-107 Above high normal Chloride Level [facility] ([facility]) carbon dioxide level 19 mEq/L 21-32 Below low normal Carbon Di oxide Level [facility] ([facility]) anion gap 10 mEq/L 8-16 Anion Gap [facility] ([facility]) calcium level 9.4 mg/dL 8.5-10.1 Calcium Level [facility] ( [facility]) ID Date Data Source [id number] 12/13/2020 09:35:00 AM [place] ([facility]) Name Value Range Interpretation Code Description Data Claribel rce(s) Supporting Document(s) white blood count 3.4 10 4.0-10.0 Below low normal White Blood Count [facility] ([facility]) red blood count 4.04 10 4.00-5.40 Red Blood Count ATHE ([facility]) hemoglobin 11.8 g/dL 12.0-15.5 Below low normal Hemoglobin [facility] ( [facility]) hematocrit 35.7 % 36.0-47.0 Below low normal Hematocrit [facility] ( [facility]) mean corpuscular volume 88.4 fL 80.0-96.0 Mean Corpusc ular Volume [facility] ([facility]) mean corpuscular hemoglobin 29.2 pg 27.0-33.0 Mean Cor puscular Hemoglobin [facility] ([facility]) mean corpuscular HGB conc 33.1 g/dL 32.0-36.5 Mean Corpu scular HGB Conc [facility] ([facility]) red cell distribution width 13.2 % 11.5-14.5 Red Cell Distribution Width [facility] ([facility]) platelet count, automated 162 10 150-450 Platelet C ount, Automated [facility] ([facility]) nucleated red blood cell % 0.0 % 0-0 Nucleated Red Blood Cell % [facility] ([facility]) ID Date Data Source [id number] 12/13/2020 09:35:00 AM [place] ([facility]) Name Value Range Interpretation Code Description Data Claribel rce(s) Supporting Document(s) glucose, fasting 270 mg/dL 70-100 Above high normal Glucose, Fas ting [facility] ([facility]) blood urea nitrogen 13 mg/dL 7-18 Blood Urea Nitro gen [facility] ([facility]) creatinine for GFR 1.13 mg/dL 0.55-1.30 Creatinine for GF R [facility] ([facility]) glomerular filtration rate >60 Below low normal Mariza merular Filtration Rate [facility] ([facility]) sodium level 140 mEq/L 136-145 Sodium Level [facility] ([facility]) potassium serum 4.0 mEq/L 3.5-5.1 Potassium Serum ATHE NA ([facility]) chloride level 111 mEq/L 98-107 Above high normal Chloride Level [facility] ([facility]) carbon dioxide level 19 mEq/L 21-32 Below low normal Carbon Di oxide Level [facility] ([facility]) anion gap 10 mEq/L 8-16 Anion Gap [facility] ([facility]) calcium level 9.4 mg/dL 8.5-10.1 Calcium Level [facility] ( [facility]) ID Date Data Source [id number] 12/13/2020 09:35:00 AM EST [facility]) Name Value Range Interpretation Code Description Data Claribel rce(s) Supporting Document(s) white blood count 3.4 10 4.0-10.0 Below low normal White Blood Count [facility] ([facility]) red blood count 4.04 10 4.00-5.40 Red Blood Count ATHE ([facility]) hemoglobin 11.8 g/dL 12.0-15.5 Below low normal Hemoglobin CY[facility]I ( [facility]) hematocrit 35.7 % 36.0-47.0 Below low normal Hematocrit [facility] ( [facility]) mean corpuscular volume 88.4 fL 80.0-96.0 Mean Corpusc ular Volume [facility] ([facility]) mean corpuscular hemoglobin 29.2 pg 27.0-33.0 Mean Cor puscular Hemoglobin [facility] ([facility]) mean corpuscular HGB conc 33.1 g/dL 32.0-36.5 Mean Corpu scular HGB Conc [facility] ([facility]) red cell distribution width 13.2 % 11.5-14.5 Red Cell Distribution Width [facility] ([facility]) platelet count, automated 162 10 150-450 Platelet C ount, Automated [facility] ([facility]) nucleated red blood cell % 0.0 % 0-0 Nucleated Red Blood Cell % [facility] ([facility]) ID Date Data Source [id number] 12/13/2020 09:35:00 AM [place] ([facility]) Name Value Range Interpretation Code Description Data Claribel rce(s) Supporting Document(s) glucose, fasting 270 mg/dL 70-100 Above high normal Glucose, Fas ting [facility]I ([facility]) blood urea nitrogen 13 mg/dL 7-18 Blood Urea Nitro gen [facility] ([facility]) creatinine for GFR 1.13 mg/dL 0.55-1.30 Creatinine for GF R [facility] ([facility]) glomerular filtration rate >60 Below low normal Mariza merular Filtration Rate [facility]I ([facility]) sodium level 140 mEq/L 136-145 Sodium Level CY[facility]I ([facility]) potassium serum 4.0 mEq/L 3.5-5.1 Potassium Serum ATHE NA ([facility]) chloride level 111 mEq/L 98-107 Above high normal Chloride Level [facility] ([facility]) carbon dioxide level 19 mEq/L 21-32 Below low normal Carbon Di oxide Level [facility]I ([facility]) anion gap 10 mEq/L 8-16 Anion Gap [facility] ([facility]) calcium level 9.4 mg/dL 8.5-10.1 Calcium Level [facility]I ( [facility]) ID Date Data Source [id number] 12/13/2020 09:35:00 AM EST [facility] ([facility]) Name Value Range Interpretation Code Description Data Claribel rce(s) Supporting Document(s) white blood count 3.4 10 4.0-10.0 Below low normal White Blood Count [facility] ([facility]) red blood count 4.04 10 4.00-5.40 Red Blood Count ATHE NA ([facility]) hemoglobin 11.8 g/dL 12.0-15.5 Below low normal Hemoglobin CY[facility]I ( [facility]) hematocrit 35.7 % 36.0-47.0 Below low normal Hematocrit [facility] ( [facility]) mean corpuscular volume 88.4 fL 80.0-96.0 Mean Corpusc ular Volume [facility]I ([facility]) mean corpuscular hemoglobin 29.2 pg 27.0-33.0 Mean Cor puscular Hemoglobin [facility] ([facility]) red cell distribution width 13.2 % 11.5-14.5 Red Cell Distribution Width [facility] ([facility]) mean corpuscular HGB conc 33.1 g/dL 32.0-36.5 Mean Corpu scular HGB Conc Y[facility]I ([facility]) platelet count, automated 162 10 150-450 Platelet C ount, Automated [facility] ([facility]) nucleated red blood cell % 0.0 % 0-0 Nucleated Red Blood Cell % [facility] ([facility]) ID Date Data Source [id number] 12/13/2020 09:35:00 AM EST [facility]) Name Value Range Interpretation Code Description Data Claribel rce(s) Supporting Document(s) glucose, fasting 270 mg/dL 70-100 Above high normal Glucose, Fas ting [facility] ([facility]) blood urea nitrogen 13 mg/dL 7-18 Blood Urea Nitro gen [facility] ([facility]) creatinine for GFR 1.13 mg/dL 0.55-1.30 Creatinine for GF R [facility] ([facility]) glomerular filtration rate >60 Below low normal Mariza merular Filtration Rate CY[facility]I ([facility]) sodium level 140 mEq/L 136-145 Sodium Level CYNDI ([facility]) chloride level 111 mEq/L 98-107 Above high normal Chloride Level [facility] ([facility]) potassium serum 4.0 mEq/L 3.5-5.1 Potassium Serum ATH NA [facility]) carbon dioxide level 19 mEq/L 21-32 Below low normal Carbon Di oxide Level [facility] ([facility]) anion gap 10 mEq/L 8-16 Anion Gap [facility] ([facility]) calcium level 9.4 mg/dL 8.5-10.1 Calcium Level [facility] ( [facility]) ID Date Data Source [id number] 12/13/2020 09:35:00 AM EST [facility] ([facility]) Name Value Range Interpretation Code Description Data Claribel rce(s) Supporting Document(s) white blood count 3.4 10 4.0-10.0 Below low normal White Blood Count [facility]I ([facility]) red blood count 4.04 10 4.00-5.40 Red Blood Count ATHE ([facility]) hemoglobin 11.8 g/dL 12.0-15.5 Below low normal Hemoglobin CY[facility]I ( [facility]) hematocrit 35.7 % 36.0-47.0 Below low normal Hematocrit [facility] ( [facility]) mean corpuscular volume 88.4 fL 80.0-96.0 Mean Corpusc ular Volume [facility]I ([facility]) mean corpuscular hemoglobin 29.2 pg 27.0-33.0 Mean Cor puscular Hemoglobin CYNDI ([facility]) mean corpuscular HGB conc 33.1 g/dL 32.0-36.5 Mean Corpu scular HGB Conc CYNDI ([facility]) red cell distribution width 13.2 % 11.5-14.5 Red Cell Distribution Width CYNDI ([facility]) platelet count, automated 162 10 150-450 Platelet C ount, Automated CYNDI ([facility]) nucleated red blood cell % 0.0 % 0-0 Nucleated Red Blood Cell % CYNDI ([facility]) ID Date Data Source [id number] 12/13/2020 07:31:00 AM EST CYNDI ([facility]) Name Value Range Interpretation Code Description Data Claribel rce(s) Supporting Document(s) bedside glucose 300 mg/dL 70-105 Above high normal Bedside Gluco se CYNDI ([facility]) ID Date Data Source [id number] 12/13/2020 07:31:00 AM EST CYNDI ([facility]) Name Value Range Interpretation Code Description Data Claribel rce(s) Supporting Document(s) bedside glucose 300 mg/dL 70-105 Above high normal Bedside Gluco se CYNDI ([facility]) ID Date Data Source [id number] 12/13/2020 07:31:00 AM EST CYNDI ([facility]) Name Value Range Interpretation Code Description Data Claribel rce(s) Supporting Document(s) bedside glucose 300 mg/dL 70-105 Above high normal Bedside Gluco se CYNDI ([facility]) ID Date Data Source [id number] 12/13/2020 07:31:00 AM EST CYNDI [facility]) Name Value Range Interpretation Code Description Data Claribel rce(s) Supporting Document(s) bedside glucose 300 mg/dL 70-105 Above high normal [facility] ID Date Data Source [id number] 12/13/2020 07:31:00 AM EST [facility]) Name Value Range Interpretation Code Description Data Claribel rce(s) Supporting Document(s) bedside glucose 300 mg/dL 70-105 Above high normal [facility] ID Date Data Source [id number] 12/13/2020 07:31:00 AM EST CYNDI ([facility]) Name Value Range Interpretation Code Description Data Claribel rce(s) Supporting Document(s) bedside glucose 300 mg/dL 70-105 Above high normal [facility]side [facility] ID Date Data Source [id number] 12/12/2020 08:46:00 PM EST CYND[facility]) Name Value Range Interpretation Code Description Data Claribel rce(s) Supporting Document(s) bedside glucose 223 mg/dL 70-105 Above high normal [facility]side [facility] ID Date Data Source [id number] 12/12/2020 08:46:00 PM EST CYNDI ([facility]) Name Value Range Interpretation Code Description Data Claribel rce(s) Supporting Document(s) bedside glucose 223 mg/dL 70-105 Above high normal Bedside Gluco se CYNDI ([facility]) ID Date Data Source [id number] 12/12/2020 08:46:00 PM EST CYNDI ([facility]) Name Value Range Interpretation Code Description Data Claribel rce(s) Supporting Document(s) bedside glucose 223 mg/dL 70-105 Above high normal Bedside Gluco se CYNDI ([facility]) ID Date Data Source [id number] 12/12/2020 08:46:00 PM EST CYNDI ([facility]) Name Value Range Interpretation Code Description Data Claribel rce(s) Supporting Document(s) bedside glucose 223 mg/dL 70-105 Above high normal Bedside Gluco se CYNDI ([facility]) ID Date Data Source [id number] 12/12/2020 08:46:00 PM EST CYNDI ([facility]) Name Value Range Interpretation Code Description Data Claribel rce(s) Supporting Document(s) bedside glucose 223 mg/dL 70-105 Above high normal Bedside Gluco se CYNDI ([facility]) ID Date Data Source [id number] 12/12/2020 08:46:00 PM EST CYNDI ([facility]) Name Value Range Interpretation Code Description Data Claribel rce(s) Supporting Document(s) bedside glucose 223 mg/dL 70-105 Above high normal Bedside Gluco se CYNDI ([facility]) ID Date Data Source [id number] 12/12/2020 04:33:00 PM EST CYNDI ([facility]) Name Value Range Interpretation Code Description Data Claribel rce(s) Supporting Document(s) bedside glucose 264 mg/dL 70-105 Above high normal Bedside Gluco se CYNDI ([facility]) ID Date Data Source [id number] 12/12/2020 04:33:00 PM EST CYNDI ([facility]) Name Value Range Interpretation Code Description Data Claribel rce(s) Supporting Document(s) bedside glucose 264 mg/dL 70-105 Above high normal Bedside Gluco se CYNDI ([facility]) ID Date Data Source [id number] 12/12/2020 04:33:00 PM EST CYNDI ([facility]) Name Value Range Interpretation Code Description Data Claribel rce(s) Supporting Document(s) bedside glucose 264 mg/dL 70-105 Above high normal Bedside Gluco se CYNDI ([facility]) ID Date Data Source [id number] 12/12/2020 04:33:00 PM EST CYNDI ([facility]) Name Value Range Interpretation Code Description Data Claribel rce(s) Supporting Document(s) bedside glucose 264 mg/dL 70-105 Above high normal Bedside Gluco se CYNDI ([facility]) ID Date Data Source [id number] 12/12/2020 04:33:00 PM EST CYNDI ([facility]) Name Value Range Interpretation Code Description Data Claribel rce(s) Supporting Document(s) bedside glucose 264 mg/dL 70-105 Above high normal [facility] ID Date Data Source [id number] 12/12/2020 04:33:00 PM EST CYNDI ([facility]) Name Value Range Interpretation Code Description Data Claribel rce(s) Supporting Document(s) bedside glucose 264 mg/dL 70-105 Above high normal Bedside Gluco se CYNDI ([facility]) ID Date Data Source [id number] 12/12/2020 12:02:00 PM EST CYNDI ([facility]) Name Value Range Interpretation Code Description Data Claribel rce(s) Supporting Document(s) bedside glucose 124 mg/dL 70-105 Above high normal Bedside Gluco se CYNDI ([facility]) ID Date Data Source [id number] 12/12/2020 12:02:00 PM EST CYNDI ([facility]) Name Value Range Interpretation Code Description Data Claribel rce(s) Supporting Document(s) bedside glucose 124 mg/dL 70-105 Above high normal Bedside Gluco se CYNDI ([facility]) ID Date Data Source [id number] 12/12/2020 12:02:00 PM EST CYNDI ([facility]) Name Value Range Interpretation Code Description Data Claribel rce(s) Supporting Document(s) bedside glucose 124 mg/dL 70-105 Above high normal Bedside Gluco se CYNDI ([facility]) ID Date Data Source [id number] 12/12/2020 12:02:00 PM EST CYNDI ([facility]) Name Value Range Interpretation Code Description Data Claribel rce(s) Supporting Document(s) bedside glucose 124 mg/dL 70-105 Above high normal Bedside Gluco se CYNDI ([facility]) ID Date Data Source [id number] 12/12/2020 12:02:00 PM EST CYNDI ([facility]) Name Value Range Interpretation Code Description Data Claribel rce(s) Supporting Document(s) bedside glucose 124 mg/dL 70-105 Above high normal Bedside Gluco se CYNDI ([facility]) ID Date Data Source [id number] 12/12/2020 12:02:00 PM EST CYNDI ([facility]) Name Value Range Interpretation Code Description Data Claribel rce(s) Supporting Document(s) bedside glucose 124 mg/dL 70-105 Above high normal Bedside Gluco se CYNDI ([facility]) ID Date Data Source [id number] 12/12/2020 08:03:00 AM EST CYNDI ([facility]) Name Value Range Interpretation Code Description Data Claribel rce(s) Supporting Document(s) bedside glucose 156 mg/dL 70-105 Above high normal Bedside Gluco se CYNDI ([facility]) ID Date Data Source [id number] 12/12/2020 08:03:00 AM EST CYNDI ([facility]) Name Value Range Interpretation Code Description Data Claribel rce(s) Supporting Document(s) bedside glucose 156 mg/dL 70-105 Above high normal Bedside Gluco se CYNDI ([facility]) ID Date Data Source [id number] 12/12/2020 08:03:00 AM EST CYNDI ([facility]) Name Value Range Interpretation Code Description Data Claribel rce(s) Supporting Document(s) bedside glucose 156 mg/dL 70-105 Above high normal Bedside Gluco se CYNDI ([facility]) ID Date Data Source [id number] 12/12/2020 08:03:00 AM EST CYNDI ([facility]) Name Value Range Interpretation Code Description Data Claribel rce(s) Supporting Document(s) bedside glucose 156 mg/dL 70-105 Above high normal Bedside Gluco se CYNDI ([facility]) ID Date Data Source [id number] 12/12/2020 08:03:00 AM EST CYNDI ([facility]) Name Value Range Interpretation Code Description Data Claribel rce(s) Supporting Document(s) bedside glucose 156 mg/dL 70-105 Above high normal Bedside Gluco se CYNDI ([facility]) ID Date Data Source [id number] 12/12/2020 08:03:00 AM EST CYNDI ([facility]) Name Value Range Interpretation Code Description Data Claribel rce(s) Supporting Document(s) bedside glucose 156 mg/dL 70-105 Above high normal Bedside Gluco se ARMSTRONG ([facility]) ID Date Data Source [id number] 12/12/2020 06:26:00 AM EST CYNDI ([facility]) Name Value Range Interpretation Code Description Data Claribel rce(s) Supporting Document(s) bedside glucose 170 mg/dL 70-105 Above high normal Bedside Gluco se [facility]) ID Date Data Source [id number] 12/12/2020 06:26:00 AM EST CYNDI ([facility]) Name Value Range Interpretation Code Description Data Claribel rce(s) Supporting Document(s) bedside glucose 170 mg/dL 70-105 Above high normal Bedside Gluco se CYNDI ([facility]) ID Date Data Source [id number] 12/12/2020 06:26:00 AM [facility] Name Value Range Interpretation Code Description Data Claribel rce(s) Supporting Document(s) bedside glucose 170 mg/dL 70-105 Above high normal Bedside Gluco se CYNDI ([facility]) ID Date Data Source [id number] 12/12/2020 06:26:00 AM EST CYNDI ([facility]) Name Value Range Interpretation Code Description Data Claribel rce(s) Supporting Document(s) bedside glucose 170 mg/dL 70-105 Above high normal Bedside Gluco se [facility]) ID Date Data Source [id number] 12/12/2020 06:26:00 AM EST CYNDI ([facility]) Name Value Range Interpretation Code Description Data Claribel rce(s) Supporting Document(s) bedside glucose 170 mg/dL 70-105 Above high normal Bedside Gluco se CYNDI ([facility]) ID Date Data Source [id number] 12/12/2020 06:26:00 AM EST CYNDI ([facility]) Name Value Range Interpretation Code Description Data Claribel rce(s) Supporting Document(s) bedside glucose 170 mg/dL 70-105 Above high normal Bedside Gluco se CYNDI ([facility]) ID Date Data Source [id number] 12/12/2020 05:08:00 AM EST CYNDI ([facility]) Name Value Range Interpretation Code Description Data Claribel rce(s) Supporting Document(s) bedside glucose 114 mg/dL 70-105 Above high normal Bedside Gluco se CYNDI ([facility]) ID Date Data Source [id number] 12/12/2020 05:08:00 AM EST CYNDI ([facility]) Name Value Range Interpretation Code Description Data Claribel rce(s) Supporting Document(s) bedside glucose 114 mg/dL 70-105 Above high normal Bedside Gluco se CYNDI ([facility]) ID Date Data Source [id number] 12/12/2020 05:08:00 AM EST CYNDI ([facility]) Name Value Range Interpretation Code Description Data Claribel rce(s) Supporting Document(s) bedside glucose 114 mg/dL 70-105 Above high normal Bedside Gluco se CYNDI ([facility]) ID Date Data Source [id number] 12/12/2020 05:08:00 AM EST CYNDI ([facility]) Name Value Range Interpretation Code Description Data Claribel rce(s) Supporting Document(s) bedside glucose 114 mg/dL 70-105 Above high normal Bedside Gluco se CYNDI ([facility]) ID Date Data Source [id number] 12/12/2020 05:08:00 AM LE HANNA ([facility]) Name Value Range Interpretation Code Description Data Claribel rce(s) Supporting Document(s) bedside glucose 114 mg/dL 70-105 Above high normal Bedside Gluco se CYNDI ([facility]) ID Date Data Source [id number] 12/12/2020 05:08:00 AM LE HANNA ([facility]) Name Value Range Interpretation Code Description Data Claribel rce(s) Supporting Document(s) bedside glucose 114 mg/dL 70-105 Above high normal Bedside Gluco se HANNA ([facility]) ID Date Data Source [id number] 12/12/2020 04:32:00 AM LE HANNA [facility]) Name Value Range Interpretation Code Description Data Claribel rce(s) Supporting Document(s) magnesium level 2.6 mg/dL 1.8-2.4 Above high normal [facility]esium [facility] ID Date Data Source [id number] 12/12/2020 04:32:00 AM LE HANNA [facility]) Name Value Range Interpretation Code Description Data Claribel rce(s) Supporting Document(s) phosphorus level 1.5 mg/dL 2.5-4.9 Below low normal Phosphorus Le karma HENRIQUEZENA ([facility]) ID Date Data Source [id number] 12/12/2020 04:32:00 AM EST CYNDI [facility]) Name Value Range Interpretation Code Description Data Claribel rce(s) Supporting Document(s) glucose, fasting 135 mg/dL 70-100 Above high normal Glucose, Fas ting ARMSTRONG ([facility]) blood urea nitrogen 9 mg/dL 7-18 Blood Urea Nitro gen CYNDI ([facility]) creatinine for GFR 1.15 mg/dL 0.55-1.30 Creatinine for GF R CYNDI ([facility]) glomerular filtration rate >60 Below low normal Mariza merular Filtration Rate CYNDI ([facility]) sodium level 143 mEq/L 136-145 Sodium Level CYNDI ([facility]) potassium serum 3.5 mEq/L 3.5-5.1 Potassium Serum ATHE NA ([facility]) chloride level 114 mEq/L 98-107 Above high normal Chloride Level ARMSTRONG ([facility]) carbon dioxide level 20 mEq/L 21-32 Below low normal Carbon Di oxide Level ARMSTRONG ([facility]) anion gap 9 mEq/L 8-16 Anion Gap ARMSTRONG ([facility]) calcium level 8.3 mg/dL 8.5-10.1 Below low normal Calcium Level AT [facility]) ID Date Data Source [id number] 12/12/2020 04:32:00 AM EST [facility]) Name Value Range Interpretation Code Description Data Claribel rce(s) Supporting Document(s) white blood count 4.7 10 4.0-10.0 White Blood Count ARMSTRONG ([facility]) red blood count 3.44 10 4.00-5.40 Below low normal Red Blood Coun t ARMSTRONG ([facility]) hemoglobin 9.9 g/dL 12.0-15.5 Below low normal Hemoglobin CYNDI ( [facility]) hematocrit 29.9 % 36.0-47.0 Below low normal Hematocrit ARMSTRONG ( [facility]) mean corpuscular hemoglobin 28.8 pg 27.0-33.0 Mean Cor puscular Hemoglobin ARMSTRONG ([facility]) mean corpuscular volume 86.9 fL 80.0-96.0 Mean Corpusc ular Volume ARMSTRONG ([facility]) mean corpuscular HGB conc 33.1 g/dL 32.0-36.5 Mean Corpu scular HGB Conc ARMSTRONG ([facility]) red cell distribution width 13.2 % 11.5-14.5 Red Cell Distribution Width CYNDI ([facility]) platelet count, automated 171 10 150-450 Platelet C ount, Automated CYNDI ([facility]) nucleated red blood cell % 0.0 % 0-0 Nucleated Red Blood Cell % ARMSTRONG ([facility]) ID Date Data Source [id number] 12/12/2020 04:32:00 AM EST CYNDI ([facility]) Name Value Range Interpretation Code Description Data Claribel rce(s) Supporting Document(s) magnesium level 2.6 mg/dL 1.8-2.4 Above high normal Magnesium Lev el [facility]) ID Date Data Source [id number] 12/12/2020 04:32:00 AM EST ARMSTRONG ([facility]) Name Value Range Interpretation Code Description Data Claribel rce(s) Supporting Document(s) phosphorus level 1.5 mg/dL 2.5-4.9 Below low normal Phosphorus Le karma ARMSTRONG ([facility]) ID Date Data Source [id number] 12/12/2020 04:32:00 AM EST CYNDI ([facility]) Name Value Range Interpretation Code Description Data Claribel rce(s) Supporting Document(s) glucose, fasting 135 mg/dL 70-100 Above high normal Glucose, Fas ting ARMSTRONG ([facility]) blood urea nitrogen 9 mg/dL 7-18 Blood Urea Nitro gen CYNDI ([facility]) creatinine for GFR 1.15 mg/dL 0.55-1.30 Creatinine for GF R ARMSTRONG ([facility]) glomerular filtration rate >60 Below low normal Mariza merular Filtration Rate CYNDI ([facility]) sodium level 143 mEq/L 136-145 Sodium Level CYNDI ([facility]) potassium serum 3.5 mEq/L 3.5-5.1 Potassium Serum ATH NA ([facility]) chloride level 114 mEq/L 98-107 Above high normal Chloride Level ARMSTRONG ([facility]) anion gap 9 mEq/L 8-16 Anion Gap CYNDI ([facility]) carbon dioxide level 20 mEq/L 21-32 Below low normal Carbon Di oxide Level ARMSTRONG ([facility]) calcium level 8.3 mg/dL 8.5-10.1 Below low normal Calcium Level AT [facility]) ID Date Data Source [id number] 12/12/2020 04:32:00 AM EST ARMSTRONG ([facility]) Name Value Range Interpretation Code Description Data Claribel rce(s) Supporting Document(s) white blood count 4.7 10 4.0-10.0 White Blood Count ARMSTRONG ([facility]) red blood count 3.44 10 4.00-5.40 Below low normal Red Blood Coun t ARMSTRONG ([facility]) hemoglobin 9.9 g/dL 12.0-15.5 Below low normal Hemoglobin ARMSTRONG ( [facility]) hematocrit 29.9 % 36.0-47.0 Below low normal Hematocrit ARMSTRONG ( [facility]) mean corpuscular volume 86.9 fL 80.0-96.0 Mean Corpusc ular Volume ARMSTRONG ([facility]) mean corpuscular HGB conc 33.1 g/dL 32.0-36.5 Mean Corpu scular HGB Conc ARMSTRONG ([facility]) mean corpuscular hemoglobin 28.8 pg 27.0-33.0 Mean Cor puscular Hemoglobin ARMSTRONG ([facility]) red cell distribution width 13.2 % 11.5-14.5 Red Cell Distribution Width ARMSTRONG ([facility]) platelet count, automated 171 10 150-450 Platelet C ount, Automated CYNDI ([facility]) nucleated red blood cell % 0.0 % 0-0 Nucleated Red Blood Cell % ARMSTRONG ([facility]) ID Date Data Source [id number] 12/12/2020 04:32:00 AM EST ARMSTRONG ([facility]) Name Value Range Interpretation Code Description Data Claribel rce(s) Supporting Document(s) magnesium level 2.6 mg/dL 1.8-2.4 Above high normal Magnesium Lev el CYNDI ([facility]) ID Date Data Source [id number] 12/12/2020 04:32:00 AM EST CYNDI ([facility]) Name Value Range Interpretation Code Description Data Claribel rce(s) Supporting Document(s) phosphorus level 1.5 mg/dL 2.5-4.9 Below low normal Phosphorus Le karma CYNDI ([facility]) ID Date Data Source [id number] 12/12/2020 04:32:00 AM EST CYNDI ([facility]) Name Value Range Interpretation Code Description Data Claribel rce(s) Supporting Document(s) glucose, fasting 135 mg/dL 70-100 Above high normal Glucose, Fas ting ARMSTRONG ([facility]) blood urea nitrogen 9 mg/dL 7-18 Blood Urea Nitro gen ARMSTRONG ([facility]) creatinine for GFR 1.15 mg/dL 0.55-1.30 Creatinine for GF R ARMSTRONG ([facility]) glomerular filtration rate >60 Below low normal Mariza merular Filtration Rate CYNDI ([facility]) sodium level 143 mEq/L 136-145 Sodium Level CYNDI ([facility]) potassium serum 3.5 mEq/L 3.5-5.1 Potassium Serum ATHE NA ([facility]) chloride level 114 mEq/L 98-107 Above high normal Chloride Level ARMSTRONG ([facility]) carbon dioxide level 20 mEq/L 21-32 Below low normal Carbon Di oxide Level CYNDI ([facility]) anion gap 9 mEq/L 8-16 Anion Gap CYNDI ([facility]) calcium level 8.3 mg/dL 8.5-10.1 Below low normal Calcium Level AT BEL[facility]) ID Date Data Source [id number] 12/12/2020 04:32:00 AM EST CYNDI ([facility]) Name Value Range Interpretation Code Description Data Claribel rce(s) Supporting Document(s) white blood count 4.7 10 4.0-10.0 White Blood Count CYNDI ([facility]) red blood count 3.44 10 4.00-5.40 Below low normal Red Blood Coun t CYNDI ([facility]) hemoglobin 9.9 g/dL 12.0-15.5 Below low normal Hemoglobin ARMSTRONG ( [facility]) hematocrit 29.9 % 36.0-47.0 Below low normal Hematocrit CYNDI ( [facility]) mean corpuscular volume 86.9 fL 80.0-96.0 Mean Corpusc ular Volume [facility] ([facility] [facility] mean corpuscular hemoglobin 28.8 pg 27.0-33.0 Mean Cor puscular Hemoglobin ARMSTRONG ([facility]) mean corpuscular HGB conc 33.1 g/dL 32.0-36.5 Mean Corpu scular HGB Conc ARMSTRONG ([facility]) platelet count, automated 171 10 150-450 Platelet C ount, Automated CYNDI ([facility]) red cell distribution width 13.2 % 11.5-14.5 Red Cell Distribution Width ARMSTRONG ([facility]) nucleated red blood cell % 0.0 % 0-0 Nucleated Red Blood Cell % ARM[facility]ONG ([facility]) ID Date Data Source [id number] 12/12/2020 04:32:00 AM EST ARMSTRONG ([facility]) Name Value Range Interpretation Code Description Data Claribel rce(s) Supporting Document(s) magnesium level 2.6 mg/dL 1.8-2.4 Above high normal Magnesium Lev el ARMSTRONG ([facility]) ID Date Data Source [id number] 12/12/2020 04:32:00 AM EST CYNDI ([facility]) Name Value Range Interpretation Code Description Data Claribel rce(s) Supporting Document(s) phosphorus level 1.5 mg/dL 2.5-4.9 Below low normal Phosphorus Le karma CYNDI ([facility]) ID Date Data Source [id number] 12/12/2020 04:32:00 AM EST CYNDI ([facility]) Name Value Range Interpretation Code Description Data Claribel rce(s) Supporting Document(s) glucose, fasting 135 mg/dL 70-100 Above high normal Glucose, Fas ting ARMSTRONG ([facility]) blood urea nitrogen 9 mg/dL 7-18 Blood Urea Nitro gen ARMSTRONG ([facility]) creatinine for GFR 1.15 mg/dL 0.55-1.30 Creatinine for GF R ARMSTRONG ([facility]) glomerular filtration rate >60 Below low normal Mariza merular Filtration Rate ARMSTRONG ([facility]) sodium level 143 mEq/L 136-145 Sodium Level [facility]ONG ([facility]) potassium serum 3.5 mEq/L 3.5-5.1 Potassium Serum ATH NA [facility]) chloride level 114 mEq/L 98-107 Above high normal Chloride Level ARMSTRONG ([facility]) carbon dioxide level 20 mEq/L 21-32 Below low normal Carbon Di oxide Level ARMSTRONG ([facility]) anion gap 9 mEq/L 8-16 Anion Gap ARM[facility]ONG ([facility]) calcium level 8.3 mg/dL 8.5-10.1 Below low normal Calcium Level AT [facility]) ID Date Data Source [id number] 12/12/2020 04:32:00 AM EST CYNDI ([facility]) Name Value Range Interpretation Code Description Data Claribel rce(s) Supporting Document(s) white blood count 4.7 10 4.0-10.0 White Blood Count ARM[facility]ONG ([facility]) red blood count 3.44 10 4.00-5.40 Below low normal Red Blood Coun t ARMSTRONG ([facility]) hematocrit 29.9 % 36.0-47.0 Below low normal Hematocrit ARMSTRONG ( [facility]) hemoglobin 9.9 g/dL 12.0-15.5 Below low normal Hemoglobin ARMSTRONG ( [facility]) mean corpuscular volume 86.9 fL 80.0-96.0 Mean Corpusc ular Volume CYNDI ([facility]) mean corpuscular hemoglobin 28.8 pg 27.0-33.0 Mean Cor puscular Hemoglobin ARMSTRONG ([facility]) mean corpuscular HGB conc 33.1 g/dL 32.0-36.5 Mean Corpu scular HGB Conc ARM[facility]ONG ([facility]) red cell distribution width 13.2 % 11.5-14.5 Red Cell Distribution Width ARM[facility] ([facility]) platelet count, automated 171 10 150-450 Platelet C ount, Automated CYNDI ([facility]) nucleated red blood cell % 0.0 % 0-0 Nucleated Red Blood Cell % [facility]ONG ([facility]) ID Date Data Source [id number] 12/12/2020 04:32:00 AM LE [facility]ONG ([facility]) Name Value Range Interpretation Code Description Data Claribel rce(s) Supporting Document(s) magnesium level 2.6 mg/dL 1.8-2.4 Above high normal Magnesium Lev vasile [facility] ([facility]) ID Date Data Source [id number] 12/12/2020 04:32:00 AM EST [facility] ([facility]) Name Value Range Interpretation Code Description Data Claribel rce(s) Supporting Document(s) phosphorus level 1.5 mg/dL 2.5-4.9 Below low normal Phosphorus Le karma [facility] ([facility]) ID Date Data Source [id number] 12/12/2020 04:32:00 AM EST [place]ONG ([facility]) Name Value Range Interpretation Code Description Data Claribel rce(s) Supporting Document(s) blood urea nitrogen 9 mg/dL 7-18 Blood Urea Nitro gen [facility]ONG ([facility]) glucose, fasting 135 mg/dL 70-100 Above high normal Glucose, Fas ting ARM[facility]ONG ([facility]) creatinine for GFR 1.15 mg/dL 0.55-1.30 Creatinine for GF R ARMSTRONG ([facility]) glomerular filtration rate >60 Below low normal Mariza merular Filtration Rate CYNDI ([facility]) potassium serum 3.5 mEq/L 3.5-5.1 Potassium Serum ATHE NA ([facility]) sodium level 143 mEq/L 136-145 Sodium Level CYNDI ([facility]) chloride level 114 mEq/L 98-107 Above high normal Chloride Level CYNDI ([facility]) anion gap 9 mEq/L 8-16 Anion Gap CYNDI ([facility]) carbon dioxide level 20 mEq/L 21-32 Below low normal Carbon Di oxide Level CYNDI ([facility]) calcium level 8.3 mg/dL 8.5-10.1 Below low normal Calcium Level AT [facility]) ID Date Data Source [id number] 12/12/2020 04:32:00 AM EST [facility]) Name Value Range Interpretation Code Description Data Claribel rce(s) Supporting Document(s) white blood count 4.7 10 4.0-10.0 White Blood Count CYNDI ([facility]) hemoglobin 9.9 g/dL 12.0-15.5 Below low normal Hemoglobin ARMSTRONG ( [facility]) red blood count 3.44 10 4.00-5.40 Below low normal Red Blood Coun t CYNDI ([facility]) hematocrit 29.9 % 36.0-47.0 Below low normal Hematocrit CYNDI ( [facility]) mean corpuscular hemoglobin 28.8 pg 27.0-33.0 Mean Cor puscular Hemoglobin CYNDI ([facility]) mean corpuscular volume 86.9 fL 80.0-96.0 Mean Corpusc ular Volume CYNDI ([facility]) mean corpuscular HGB conc 33.1 g/dL 32.0-36.5 Mean Corpu scular HGB Conc CYNDI ([facility]) red cell distribution width 13.2 % 11.5-14.5 Red Cell Distribution Width CYNDI ([facility]) platelet count, automated 171 10 150-450 Platelet C ount, Automated CYNDI ([facility]) nucleated red blood cell % 0.0 % 0-0 Nucleated Red Blood Cell % CYNDI ([facility]) ID Date Data Source [id number] 12/12/2020 04:32:00 AM EST CYNDI ([facility]) Name Value Range Interpretation Code Description Data Claribel rce(s) Supporting Document(s) magnesium level 2.6 mg/dL 1.8-2.4 Above high normal Magnesium Lev el CYNDI ([facility]) ID Date Data Source [id number] 12/12/2020 04:32:00 AM EST CYNDI ([facility]) Name Value Range Interpretation Code Description Data Claribel rce(s) Supporting Document(s) phosphorus level 1.5 mg/dL 2.5-4.9 Below low normal Phosphorus Le karma CYNDI ([facility]) ID Date Data Source [id number] 12/12/2020 04:32:00 AM EST CYNDI ([facility]) Name Value Range Interpretation Code Description Data Claribel rce(s) Supporting Document(s) glucose, fasting 135 mg/dL 70-100 Above high normal Glucose, Fas ting CYNDI ([facility]) blood urea nitrogen 9 mg/dL 7-18 Blood Urea Nitro gen CYNDI ([facility]) creatinine for GFR 1.15 mg/dL 0.55-1.30 Creatinine for GF R CYNDI ([facility]) sodium level 143 mEq/L 136-145 Sodium Level CYNDI ([facility]) glomerular filtration rate >60 Below low normal Mariza merular Filtration Rate CYNDI ([facility]) potassium serum 3.5 mEq/L 3.5-5.1 Potassium Serum ATHE NA ([facility]) chloride level 114 mEq/L 98-107 Above high normal Chloride Level CYNDI ([facility]) carbon dioxide level 20 mEq/L 21-32 Below low normal Carbon Di oxide Level ARMSTRONG ([facility]) anion gap 9 mEq/L 8-16 Anion Gap CYNDI ([facility]) calcium level 8.3 mg/dL 8.5-10.1 Below low normal Calcium Level AT [facility] ([facility]) ID Date Data Source [id number] 12/12/2020 04:32:00 AM EST ARMSTRONG ([facility]) Name Value Range Interpretation Code Description Data Claribel rce(s) Supporting Document(s) white blood count 4.7 10 4.0-10.0 White Blood Count [facility] ([facility]) red blood count 3.44 10 4.00-5.40 Below low normal Red Blood Coun t [facility]ONG ([facility]) hemoglobin 9.9 g/dL 12.0-15.5 Below low normal Hemoglobin ARMSTRONG ( [facility]) hematocrit 29.9 % 36.0-47.0 Below low normal Hematocrit ARM[facility]ONG ( [facility]) mean corpuscular volume 86.9 fL 80.0-96.0 Mean Corpusc ular Volume ARMSTRONG ([facility]) mean corpuscular hemoglobin 28.8 pg 27.0-33.0 Mean Cor puscular Hemoglobin ARM[facility]ONG ([facility]) mean corpuscular HGB conc 33.1 g/dL 32.0-36.5 Mean Corpu scular HGB Conc ARM[facility]ONG ([facility]) red cell distribution width 13.2 % 11.5-14.5 Red Cell Distribution Width [facility]ONG ([facility]) platelet count, automated 171 10 150-450 Platelet C ount, Automated [facility] ([facility]) nucleated red blood cell % 0.0 % 0-0 Nucleated Red Blood Cell % [facility] ([facility]) ID Date Data Source [id number] 12/12/2020 04:24:00 AM EST [facility]ONG ([facility]) Name Value Range Interpretation Code Description Data Claribel rce(s) Supporting Document(s) bedside glucose 133 mg/dL 70-105 Above high normal Bedside Gluco se ARMSTRONG ([facility]) ID Date Data Source [id number] 12/12/2020 04:24:00 AM EST CYNDI ([facility]) Name Value Range Interpretation Code Description Data Claribel rce(s) Supporting Document(s) bedside glucose 133 mg/dL 70-105 Above high normal Bedside Gluco se CYNDI ([facility]) ID Date Data Source [id number] 12/12/2020 04:24:00 AM EST CYNDI ([facility]) Name Value Range Interpretation Code Description Data Claribel rce(s) Supporting Document(s) bedside glucose 133 mg/dL 70-105 Above high normal Bedside Gluco se CYNDI ([facility]) ID Date Data Source [id number] 12/12/2020 04:24:00 AM EST CYNDI [facility]) Name Value Range Interpretation Code Description Data Claribel rce(s) Supporting Document(s) bedside glucose 133 mg/dL 70-105 Above high normal Bedside Gluco se ARMSTRONG ([facility]) ID Date Data Source [id number] 12/12/2020 04:24:00 AM EST CYNDI [facility]) Name Value Range Interpretation Code Description Data Claribel rce(s) Supporting Document(s) bedside glucose 133 mg/dL 70-105 Above high normal Bedside Gluco se CYNDI ([facility]) ID Date Data Source [id number] 12/12/2020 04:24:00 AM EST CYNDI ([facility]) Name Value Range Interpretation Code Description Data Claribel rce(s) Supporting Document(s) bedside glucose 133 mg/dL 70-105 Above high normal [facility] Date Data Source [id number] 12/12/2020 03:01:00 AM EST CYNDI [facility]) Name Value Range Interpretation Code Description Data Claribel rce(s) Supporting Document(s) bedside glucose 153 mg/dL 70-105 Above high normal Bedside Gluco se CYNDI ([facility]) ID Date Data Source [id number] 12/12/2020 03:01:00 AM EST CYNDI ([facility]) Name Value Range Interpretation Code Description Data Claribel rce(s) Supporting Document(s) bedside glucose 153 mg/dL 70-105 Above high normal Bedside Gluco se CYNDI ([facility]) ID Date Data Source [id number] 12/12/2020 03:01:00 AM EST CYNDI [facility]) Name Value Range Interpretation Code Description Data Claribel rce(s) Supporting Document(s) bedside glucose 153 mg/dL 70-105 Above high normal Bedside Gluco se [facility]) ID Date Data Source [id number] 12/12/2020 03:01:00 AM EST [facility]) Name Value Range Interpretation Code Description Data Claribel rce(s) Supporting Document(s) bedside glucose 153 mg/dL 70-105 Above high normal Bedside Gluco se [facility]) ID Date Data Source [id number] 12/12/2020 03:01:00 AM EST CYNDI ([facility]) Name Value Range Interpretation Code Description Data Claribel rce(s) Supporting Document(s) bedside glucose 153 mg/dL 70-105 Above high normal [facility] ID Date Data Source [id number] 12/12/2020 03:01:00 AM EST CYNDI [facility]) Name Value Range Interpretation Code Description Data Claribel rce(s) Supporting Document(s) bedside glucose 153 mg/dL 70-105 Above high normal [facility] ID Date Data Source [id number] 12/12/2020 02:13:00 AM EST CYNDI ([facility]) Name Value Range Interpretation Code Description Data Claribel rce(s) Supporting Document(s) bedside glucose 140 mg/dL 70-105 Above high normal Bedside Gluco se CYNDI ([facility]) ID Date Data Source [id number] 12/12/2020 02:13:00 AM EST CYNDI ([facility]) Name Value Range Interpretation Code Description Data Claribel rce(s) Supporting Document(s) bedside glucose 140 mg/dL 70-105 Above high normal Bedside Gluco se CYNDI ([facility]) ID Date Data Source [id number] 12/12/2020 02:13:00 AM EST CYNDI ([facility]) Name Value Range Interpretation Code Description Data Claribel rce(s) Supporting Document(s) bedside glucose 140 mg/dL 70-105 Above high normal Bedside Gluco se CYNDI ([facility]) ID Date Data Source [id number] 12/12/2020 02:13:00 AM EST CYNDI ([facility]) Name Value Range Interpretation Code Description Data Claribel rce(s) Supporting Document(s) bedside glucose 140 mg/dL 70-105 Above high normal Bedside Gluco se CYNDI ([facility]) ID Date Data Source [id number] 12/12/2020 02:13:00 AM EST CYNDI ([facility]) Name Value Range Interpretation Code Description Data Claribel rce(s) Supporting Document(s) bedside glucose 140 mg/dL 70-105 Above high normal Bedside Gluco se CYNDI ([facility]) ID Date Data Source [id number] 12/12/2020 02:13:00 AM EST CYNDI ([facility]) Name Value Range Interpretation Code Description Data Claribel rce(s) Supporting Document(s) bedside glucose 140 mg/dL 70-105 Above high normal Bedside Gluco se CYNDI ([facility]) ID Date Data Source [id number] 12/12/2020 01:26:00 AM EST CYNDI ([facility]) Name Value Range Interpretation Code Description Data Claribel rce(s) Supporting Document(s) bedside glucose 115 mg/dL 70-105 Above high normal Bedside Gluco se ARMSTRONG ([facility]) ID Date Data Source [id number] 12/12/2020 01:26:00 AM EST CYNDI ([facility]) Name Value Range Interpretation Code Description Data Claribel rce(s) Supporting Document(s) bedside glucose 115 mg/dL 70-105 Above high normal Bedside Gluco se [facility]) ID Date Data Source [id number] 12/12/2020 01:26:00 AM EST [facility]) Name Value Range Interpretation Code Description Data Claribel rce(s) Supporting Document(s) bedside glucose 115 mg/dL 70-105 Above high normal Bedside Gluco se [facility]) ID Date Data Source [id number] 12/12/2020 01:26:00 AM EST CYNDI ([facility]) Name Value Range Interpretation Code Description Data Claribel rce(s) Supporting Document(s) bedside glucose 115 mg/dL 70-105 Above high normal Bedside Gluco se [facility]) ID Date Data Source [id number] 12/12/2020 01:26[facility] Name Value Range Interpretation Code Description Data Claribel rce(s) Supporting Document(s) bedside glucose 115 mg/dL 70-105 Above high normal Bedside Gluco se CYNDI ([facility]) ID Date Data Source [id number] 12/12/2020 01:26:00 AM EST CYNDI ([facility]) Name Value Range Interpretation Code Description Data Claribel rce(s) Supporting Document(s) bedside glucose 115 mg/dL 70-105 Above high normal Bedside Gluco se CYNDI ([facility]) ID Date Data Source [id number] 12/12/2020 12:21:00 AM EST CYNDI ([facility]) Name Value Range Interpretation Code Description Data Claribel rce(s) Supporting Document(s) bedside glucose 130 mg/dL 70-105 Above high normal Bedside Gluco se CYNDI ([facility]) ID Date Data Source [id number] 12/12/2020 12:21:00 AM EST CYNDI ([facility]) Name Value Range Interpretation Code Description Data Claribel rce(s) Supporting Document(s) bedside glucose 130 mg/dL 70-105 Above high normal Bedside Gluco se CYNDI ([facility]) ID Date Data Source [id number] 12/12/2020 12:21:00 AM EST CYNDI ([facility]) Name Value Range Interpretation Code Description Data Claribel rce(s) Supporting Document(s) bedside glucose 130 mg/dL 70-105 Above high normal Bedside Gluco se CYNDI ([facility]) ID Date Data Source [id number] 12/12/2020 12:21:00 AM EST CYNDI ([facility]) Name Value Range Interpretation Code Description Data Claribel rce(s) Supporting Document(s) bedside glucose 130 mg/dL 70-105 Above high normal Bedside Gluco se CYNDI ([facility]) ID Date Data Source [id number] 12/12/2020 12:21:00 AM EST CYNDI ([facility]) Name Value Range Interpretation Code Description Data Claribel rce(s) Supporting Document(s) bedside glucose 130 mg/dL 70-105 Above high normal Bedside Gluco se HANNA ([facility]) ID Date Data Source [id number] 12/12/2020 12:21:00 AM EST CYNDI ([facility]) Name Value Range Interpretation Code Description Data Claribel rce(s) Supporting Document(s) bedside glucose 130 mg/dL 70-105 Above high normal Bedside Gluco se HANNA ([facility]) ID Date Data Source [id number] 12/12/2020 12:15:00 AM LE HANNA ([facility]) Name Value Range Interpretation Code Description Data Claribel rce(s) Supporting Document(s) phosphorus level 2.3 mg/dL 2.5-4.9 Below low normal Phosphorus Le karma HENRIQUEZENA ([facility]) ID Date Data Source [id number] 12/12/2020 12:15:00 AM LE HANNA ([facility]) Name Value Range Interpretation Code Description Data Claribel rce(s) Supporting Document(s) magnesium level 2.9 mg/dL 1.8-2.4 Above high normal Magnesium Lev vasile HANNA [facility]) ID Date Data Source [id number] 12/12/2020 12:15:00 AM EST CYNDI ([facility]) Name Value Range Interpretation Code Description Data Claribel rce(s) Supporting Document(s) phosphorus level 2.3 mg/dL 2.5-4.9 Below low normal Phosphorus Le karma ARMSTRONG ([facility]) ID Date Data Source [id number] 12/12/2020 12:15:00 AM EST CYNDI [facility]) Name Value Range Interpretation Code Description Data Claribel rce(s) Supporting Document(s) glucose, fasting 146 mg/dL 70-100 Above high normal Glucose, Fas ting ARMSTRONG ([facility]) blood urea nitrogen 12 mg/dL 7-18 Blood Urea Nitro gen CYNDI ([facility]) creatinine for GFR 1.02 mg/dL 0.55-1.30 Creatinine for GF R ARMSTRONG ([facility]) glomerular filtration rate > 60.0 >60 Glomerula r Filtration Rate ARMSTRONG ([facility]) potassium serum 3.4 mEq/L 3.5-5.1 Below low normal Potassium Seru m ARMSTRONG ([facility]) sodium level 141 mEq/L 136-145 Sodium Level ARMSTRONG ([facility]) chloride level 113 mEq/L 98-107 Above high normal Chloride Level ARM[facility] ([facility]) carbon dioxide level 19 mEq/L 21-32 Below low normal Carbon Di oxide Level ARMSTRONG ([facility]) anion gap 9 mEq/L 8-16 Anion Gap ARMSTRONG ([facility]) calcium level 8.5 mg/dL 8.5-10.1 Calcium Level ARMSTRONG ( [facility]) ID Date Data Source [id number] 12/12/2020 12:15:00 AM EST [facility]) Name Value Range Interpretation Code Description Data Claribel rce(s) Supporting Document(s) phosphorus level 2.3 mg/dL 2.5-4.9 Below low normal Phosphorus Le karma CYNDI ([facility]) ID Date Data Source [id number] 12/12/2020 12:15:00 AM EST [place]ONG ([facility]) Name Value Range Interpretation Code Description Data Claribel rce(s) Supporting Document(s) magnesium level 2.9 mg/dL 1.8-2.4 Above high normal Magnesium Lev el [facility]) ID Date Data Source [id number] 12/12/2020 12:15[facility] Name Value Range Interpretation Code Description Data Claribel rce(s) Supporting Document(s) phosphorus level 2.3 mg/dL 2.5-4.9 Below low normal Phosphorus Le karma [facility] [facility]) ID Date Data Source [id number] 12/12/2020 12:15:00 AM EST CYNDI ([facility]) Name Value Range Interpretation Code Description Data Claribel rce(s) Supporting Document(s) glucose, fasting 146 mg/dL 70-100 Above high normal Glucose, Fas ting ARMSTRONG ([facility]) blood urea nitrogen 12 mg/dL 7-18 Blood Urea Nitro gen ARMSTRONG ([facility]) creatinine for GFR 1.02 mg/dL 0.55-1.30 Creatinine for GF R ARMSTRONG ([facility]) glomerular filtration rate > 60.0 >60 Glomerula r Filtration Rate ARMSTRONG ([facility]) sodium level 141 mEq/L 136-145 Sodium Level CYNDI ([facility]) potassium serum 3.4 mEq/L 3.5-5.1 Below low normal Potassium Seru m ARMSTRONG ([facility]) chloride level 113 mEq/L 98-107 Above high normal Chloride Level ARMSTRONG ([facility]) carbon dioxide level 19 mEq/L 21-32 Below low normal Carbon Di oxide Level ARMSTRONG ([facility]) anion gap 9 mEq/L 8-16 Anion Gap ARMSTRONG ([facility]) calcium level 8.5 mg/dL 8.5-10.1 Calcium Level CYNDI ( [facility]) ID Date Data Source [id number] 12/12/2020 12:15:00 AM EST CYNDI ([facility]) Name Value Range Interpretation Code Description Data Claribel rce(s) Supporting Document(s) phosphorus level 2.3 mg/dL 2.5-4.9 Below low normal Phosphorus Le karma CYNDI ([facility]) ID Date Data Source [id number] 12/12/2020 12:15:00 AM EST CYNDI ([facility]) Name Value Range Interpretation Code Description Data Claribel rce(s) Supporting Document(s) magnesium level 2.9 mg/dL 1.8-2.4 Above high normal Magnesium Lev el CYNDI ([facility]) ID Date Data Source [id number] 12/12/2020 12:15:00 AM EST CYNDI ([facility]) Name Value Range Interpretation Code Description Data Claribel rce(s) Supporting Document(s) phosphorus level 2.3 mg/dL 2.5-4.9 Below low normal Phosphorus Le karma CYNDI ([facility]) ID Date Data Source [id number] 12/12/2020 12:15:00 AM EST CYNDI ([facility]) Name Value Range Interpretation Code Description Data Claribel rce(s) Supporting Document(s) glucose, fasting 146 mg/dL 70-100 Above high normal Glucose, Fas ting CYNDI ([facility]) creatinine for GFR 1.02 mg/dL 0.55-1.30 Creatinine for GF R ARMSTRONG ([facility]) blood urea nitrogen 12 mg/dL 7-18 Blood Urea Nitro gen CYNDI ([facility]) glomerular filtration rate > 60.0 >60 Glomerula r Filtration Rate CYNDI ([facility]) sodium level 141 mEq/L 136-145 Sodium Level CYNDI ([facility]) potassium serum 3.4 mEq/L 3.5-5.1 Below low normal Potassium Seru m CYNDI ([facility]) chloride level 113 mEq/L 98-107 Above high normal Chloride Level ARMSTRONG ([facility]) anion gap 9 mEq/L 8-16 Anion Gap CYNDI ([facility]) carbon dioxide level 19 mEq/L 21-32 Below low normal Carbon Di oxide Level ARMSTRONG ([facility]) calcium level 8.5 mg/dL 8.5-10.1 Calcium Level ARMSTRONG ( [facility]) ID Date Data Source [id number] 12/12/2020 12:15:00 AM EST CYNDI ([facility]) Name Value Range Interpretation Code Description Data Claribel rce(s) Supporting Document(s) glucose, fasting 146 mg/dL 70-100 Above high normal Glucose, Fas ting CYNDI ([facility]) blood urea nitrogen 12 mg/dL 7-18 Blood Urea Nitro gen CYNDI ([facility]) creatinine for GFR 1.02 mg/dL 0.55-1.30 Creatinine for GF R CYNDI ([facility]) glomerular filtration rate > 60.0 >60 Glomerula r Filtration Rate CYNDI ([facility]) sodium level 141 mEq/L 136-145 Sodium Level CYNDI ([facility]) potassium serum 3.4 mEq/L 3.5-5.1 Below low normal Potassium Seru m ARMSTRONG ([facility]) chloride level 113 mEq/L 98-107 Above high normal Chloride Level ARMSTRONG ([facility]) carbon dioxide level 19 mEq/L 21-32 Below low normal Carbon Di oxide Level ARMSTRONG ([facility]) anion gap 9 mEq/L 8-16 Anion Gap CYNDI ([facility]) calcium level 8.5 mg/dL 8.5-10.1 Calcium Level ARMSTRONG ( [facility]) ID Date Data Source [id number] 12/12/2020 12:15:00 AM EST CYNDI ([facility]) Name Value Range Interpretation Code Description Data Claribel rce(s) Supporting Document(s) phosphorus level 2.3 mg/dL 2.5-4.9 Below low normal Phosphorus Le karma CYNDI ([facility]) ID Date Data Source [id number] 12/12/2020 12:15:00 AM EST CYNDI ([facility]) Name Value Range Interpretation Code Description Data Claribel rce(s) Supporting Document(s) magnesium level 2.9 mg/dL 1.8-2.4 Above high normal Magnesium Lev el CYNDI ([facility]) ID Date Data Source [id number] 12/12/2020 12:15:00 AM EST CYNDI ([facility]) Name Value Range Interpretation Code Description Data Claribel rce(s) Supporting Document(s) phosphorus level 2.3 mg/dL 2.5-4.9 Below low normal Phosphorus Le karma CYNDI ([facility]) ID Date Data Source [id number] 12/12/2020 12:15:00 AM EST CYNDI ([facility]) Name Value Range Interpretation Code Description Data Claribel rce(s) Supporting Document(s) glucose, fasting 146 mg/dL 70-100 Above high normal Glucose, Fas ting ARMSTRONG ([facility]) blood urea nitrogen 12 mg/dL 7-18 Blood Urea Nitro gen ARMSTRONG ([facility]) creatinine for GFR 1.02 mg/dL 0.55-1.30 Creatinine for GF R ARMSTRONG ([facility]) glomerular filtration rate > 60.0 >60 Glomerula r Filtration Rate CYNDI ([facility]) sodium level 141 mEq/L 136-145 Sodium Level CYNDI ([facility]) potassium serum 3.4 mEq/L 3.5-5.1 Below low normal Potassium Seru m ARMSTRONG ([facility]) chloride level 113 mEq/L 98-107 Above high normal Chloride Level ARMSTRONG ([facility]) carbon dioxide level 19 mEq/L 21-32 Below low normal Carbon Di oxide Level ARMSTRONG ([facility]) anion gap 9 mEq/L 8-16 Anion Gap ARMSTRONG ([facility]) calcium level 8.5 mg/dL 8.5-10.1 Calcium Level CYNDI ( [facility]) ID Date Data Source [id number] 12/12/2020 12:15:00 AM EST CYNDI ([facility]) Name Value Range Interpretation Code Description Data Claribel rce(s) Supporting Document(s) phosphorus level 2.3 mg/dL 2.5-4.9 Below low normal Phosphorus Le karma CYNDI ([facility]) ID Date Data Source [id number] 12/12/2020 12:15:00 AM EST CYNDI ([facility]) Name Value Range Interpretation Code Description Data Claribel rce(s) Supporting Document(s) magnesium level 2.9 mg/dL 1.8-2.4 Above high normal Magnesium Lev vasile HENRIQUEZENA ([facility]) ID Date Data Source [id number] 12/12/2020 12:15:00 AM EST CYNDI ([facility]) Name Value Range Interpretation Code Description Data Claribel rce(s) Supporting Document(s) phosphorus level 2.3 mg/dL 2.5-4.9 Below low normal Phosphorus Le karma HENRIQUEZENA ([facility]) ID Date Data Source [id number] 12/12/2020 12:15:00 AM EST CYNDI ([facility]) Name Value Range Interpretation Code Description Data Claribel rce(s) Supporting Document(s) glucose, fasting 146 mg/dL 70-100 Above high normal Glucose, Fas ting ARMSTRONG ([facility]) blood urea nitrogen 12 mg/dL 7-18 Blood Urea Nitro gen ARMSTRONG ([facility]) creatinine for GFR 1.02 mg/dL 0.55-1.30 Creatinine for GF R ARMSTRONG ([facility]) glomerular filtration rate > 60.0 >60 Glomerula r Filtration Rate CYNDI ([facility]) sodium level 141 mEq/L 136-145 Sodium Level CYNDI ([facility]) potassium serum 3.4 mEq/L 3.5-5.1 Below low normal Potassium Seru m ARMSTRONG ([facility]) chloride level 113 mEq/L 98-107 Above high normal Chloride Level ARMSTRONG ([facility]) carbon dioxide level 19 mEq/L 21-32 Below low normal Carbon Di oxide Level ARMSTRONG ([facility]) anion gap 9 mEq/L 8-16 Anion Gap CYNDI ([facility]) calcium level 8.5 mg/dL 8.5-10.1 Calcium Level ARMSTRONG ( [facility]) ID Date Data Source [id number] 12/12/2020 12:15:00 AM EST CYNDI ([facility]) Name Value Range Interpretation Code Description Data Claribel rce(s) Supporting Document(s) phosphorus level 2.3 mg/dL 2.5-4.9 Below low normal Phosphorus Le karma HANNA ([facility]) ID Date Data Source [id number] 12/12/2020 12:15:00 AM EST CYNDI ([facility]) Name Value Range Interpretation Code Description Data Claribel rce(s) Supporting Document(s) magnesium level 2.9 mg/dL 1.8-2.4 Above high normal Magnesium Lev el CYNDI ([facility]) ID Date Data Source [id number] 12/12/2020 12:15:00 AM EST CYNDI ([facility]) Name Value Range Interpretation Code Description Data Claribel rce(s) Supporting Document(s) phosphorus level 2.3 mg/dL 2.5-4.9 Below low normal Phosphorus Le karma HANNA ([facility]) ID Date Data Source [id number] 12/11/2020 11:18:00 PM EST CYNDI ([facility]) Name Value Range Interpretation Code Description Data Claribel rce(s) Supporting Document(s) bedside glucose 142 mg/dL 70-105 Above high normal Bedside Gluco se CYNDI ([facility]) ID Date Data Source [id number] 12/11/2020 11:18:00 PM EST CYNDI ([facility]) Name Value Range Interpretation Code Description Data Claribel rce(s) Supporting Document(s) bedside glucose 142 mg/dL 70-105 Above high normal Bedside Gluco se CYNDI ([facility]) ID Date Data Source [id number] 12/11/2020 11:18:00 PM EST CYNDI ([facility]) Name Value Range Interpretation Code Description Data Claribel rce(s) Supporting Document(s) bedside glucose 142 mg/dL 70-105 Above high normal Bedside Gluco se ARMSTRONG ([facility]) ID Date Data Source [id number] 12/11/2020 11:18:00 PM EST CYNDI ([facility]) Name Value Range Interpretation Code Description Data Claribel rce(s) Supporting Document(s) bedside glucose 142 mg/dL 70-105 Above high normal [facility] Date Data Source [id number] 12/11/2020 11:18:00 PM EST CYNDI ([facility]) Name Value Range Interpretation Code Description Data Claribel rce(s) Supporting Document(s) bedside glucose 142 mg/dL 70-105 Above high normal [facility] ID Date Data Source [id number] 12/11/2020 11:18:00 PM EST CYNDI ([facility]) Name Value Range Interpretation Code Description Data Claribel rce(s) Supporting Document(s) bedside glucose 142 mg/dL 70-105 Above high normal [facility] ID Date Data Source [id number] 12/11/2020 10:21:00 PM EST CYNDI ([facility]) Name Value Range Interpretation Code Description Data Claribel rce(s) Supporting Document(s) bedside glucose 135 mg/dL 70-105 Above high normal [facility] ID Date Data Source [id number] 12/11/2020 10:21:00 PM [facility] Name Value Range Interpretation Code Description Data Claribel rce(s) Supporting Document(s) bedside glucose 135 mg/dL 70-105 Above high normal Bedside Gluco se CYNDI ([facility]) ID Date Data Source [id number] 12/11/2020 10:21:00 PM EST CYNDI ([facility]) Name Value Range Interpretation Code Description Data Claribel rce(s) Supporting Document(s) bedside glucose 135 mg/dL 70-105 Above high normal Bedside Gluco se CYNDI ([facility]) ID Date Data Source [id number] 12/11/2020 10:21:00 PM EST CYNDI ([facility]) Name Value Range Interpretation Code Description Data Claribel rce(s) Supporting Document(s) bedside glucose 135 mg/dL 70-105 Above high normal Bedside Gluco se ARMSTRONG ([facility]) ID Date Data Source [id number] 12/11/2020 10:21:00 PM EST CYNDI ([facility]) Name Value Range Interpretation Code Description Data Claribel rce(s) Supporting Document(s) bedside glucose 135 mg/dL 70-105 Above high normal Bedside Gluco se CYNDI ([facility]) ID Date Data Source [id number] 12/11/2020 10:21:00 PM EST CYNDI ([facility]) Name Value Range Interpretation Code Description Data Claribel rce(s) Supporting Document(s) bedside glucose 135 mg/dL 70-105 Above high normal Bedside Gluco se CYNDI ([facility]) ID Date Data Source [id number] 12/11/2020 09:17:00 PM [facility] Name Value Range Interpretation Code Description Data Claribel rce(s) Supporting Document(s) bedside glucose 146 mg/dL 70-105 Above high normal [facility]side [facility] ID Date Data Source [id number] 12/11/2020 09:17:00 PM EST CYNDI ([facility]) Name Value Range Interpretation Code Description Data Claribel rce(s) Supporting Document(s) bedside glucose 146 mg/dL 70-105 Above high normal Bedside Gluco se CYNDI ([facility]) ID Date Data Source [id number] 12/11/2020 09:17:00 PM EST CYNDI ([facility]) Name Value Range Interpretation Code Description Data Claribel rce(s) Supporting Document(s) bedside glucose 146 mg/dL 70-105 Above high normal Bedside Gluco se CYNDI ([facility]) ID Date Data Source [id number] 12/11/2020 09:17:00 PM EST CYNDI ([facility]) Name Value Range Interpretation Code Description Data Claribel rce(s) Supporting Document(s) bedside glucose 146 mg/dL 70-105 Above high normal Bedside Gluco se CYNDI ([facility]) ID Date Data Source [id number] 12/11/2020 09:17:00 PM EST CYNDI ([facility]) Name Value Range Interpretation Code Description Data Claribel rce(s) Supporting Document(s) bedside glucose 146 mg/dL 70-105 Above high normal Bedside Gluco se CYNDI ([facility]) ID Date Data Source [id number] 12/11/2020 09:17:00 PM EST CYNDI ([facility]) Name Value Range Interpretation Code Description Data Claribel rce(s) Supporting Document(s) bedside glucose 146 mg/dL 70-105 Above high normal [facility] ID Date Data Source [id number] 12/11/2020 08:14:00 PM EST CYNDI ([facility]) Name Value Range Interpretation Code Description Data Claribel rce(s) Supporting Document(s) bedside glucose 163 mg/dL 70-105 Above high normal Bedside Gluco se CYNDI ([facility]) ID Date Data Source [id number] 12/11/2020 08:14:00 PM EST CYNDI ([facility]) Name Value Range Interpretation Code Description Data Claribel rce(s) Supporting Document(s) bedside glucose 163 mg/dL 70-105 Above high normal Bedside Gluco se CYNDI ([facility]) ID Date Data Source [id number] 12/11/2020 08:14:00 PM [facility] Name Value Range Interpretation Code Description Data Claribel rce(s) Supporting Document(s) bedside glucose 163 mg/dL 70-105 Above high normal Bedside Gluco se [facility]) ID Date Data Source [id number] 12/11/2020 08:14:00 PM EST [facility]) Name Value Range Interpretation Code Description Data Claribel rce(s) Supporting Document(s) bedside glucose 163 mg/dL 70-105 Above high normal [facility] ID Date Data Source [id number] 12/11/2020 08:14:00 PM EST CYNDI ([facility]) Name Value Range Interpretation Code Description Data Claribel rce(s) Supporting Document(s) bedside glucose 163 mg/dL 70-105 Above high normal [facility]side [facility] ID Date Data Source [id number] 12/11/2020 08:14:00 PM EST [facility] Name Value Range Interpretation Code Description Data Claribel rce(s) Supporting Document(s) bedside glucose 163 mg/dL 70-105 Above high normal [facility]side [facility]uco se [facility] ID Date Data Source [id number] 12/11/2020 08:05:00 PM EST CYNDI ([facility]) Name Value Range Interpretation Code Description Data Claribel rce(s) Supporting Document(s) magnesium level 1.6 mg/dL 1.8-2.4 Below low normal Magnesium Mona l CYNDI ([facility]) ID Date Data Source [id number] 12/11/2020 08:05:00 PM EST CYNDI ([facility]) Name Value Range Interpretation Code Description Data Claribel rce(s) Supporting Document(s) phosphorus level 1.8 mg/dL 2.5-4.9 Below low normal Phosphorus Le karma CYNDI ([facility]) ID Date Data Source [id number] 12/11/2020 08:05:00 PM EST CYNDI ([facility]) Name Value Range Interpretation Code Description Data Claribel rce(s) Supporting Document(s) glucose, fasting 162 mg/dL 70-100 Above high normal Glucose, Fas ting ARMSTRONG ([facility]) blood urea nitrogen 14 mg/dL 7-18 Blood Urea Nitro gen CYNDI ([facility]) creatinine for GFR 1.21 mg/dL 0.55-1.30 Creatinine for GF R ARMSTRONG ([facility]) glomerular filtration rate >60 Below low normal Mariza merular Filtration Rate CYNDI ([facility]) sodium level 142 mEq/L 136-145 Sodium Level CYNDI ([facility]) chloride level 114 mEq/L 98-107 Above high normal Chloride Level CYNDI ([facility]) potassium serum 3.6 mEq/L 3.5-5.1 Potassium Serum ATHE NA ([facility]) carbon dioxide level 19 mEq/L 21-32 Below low normal Carbon Di oxide Level ARMSTRONG ([facility]) anion gap 9 mEq/L 8-16 Anion Gap CYNDI ([facility]) calcium level 8.7 mg/dL 8.5-10.1 Calcium Level ARMSTRONG ( [facility]) ID Date Data Source [id number] 12/11/2020 08:05:00 PM EST CYNDI ([facility]) Name Value Range Interpretation Code Description Data Claribel rce(s) Supporting Document(s) magnesium level 1.6 mg/dL 1.8-2.4 Below low normal Magnesium Leve l CYNDI ([facility]) ID Date Data Source [id number] 12/11/2020 08:05:00 PM EST CYNDI ([facility]) Name Value Range Interpretation Code Description Data Claribel rce(s) Supporting Document(s) phosphorus level 1.8 mg/dL 2.5-4.9 Below low normal Phosphorus Le karma CYNDI ([facility]) ID Date Data Source [id number] 12/11/2020 08:05:00 PM EST CYNDI ([facility]) Name Value Range Interpretation Code Description Data Claribel rce(s) Supporting Document(s) glucose, fasting 162 mg/dL 70-100 Above high normal Glucose, Fas ting ARMSTRONG ([facility]) blood urea nitrogen 14 mg/dL 7-18 Blood Urea Nitro gen CYNDI ([facility]) glomerular filtration rate >60 Below low normal Mariza merular Filtration Rate CYNDI ([facility]) creatinine for GFR 1.21 mg/dL 0.55-1.30 Creatinine for GF R CYNDI ([facility]) chloride level 114 mEq/L 98-107 Above high normal Chloride Level CYNDI ([facility]) potassium serum 3.6 mEq/L 3.5-5.1 Potassium Serum ATHE NA ([facility]) sodium level 142 mEq/L 136-145 Sodium Level CYNDI ([facility]) carbon dioxide level 19 mEq/L 21-32 Below low normal Carbon Di oxide Level CYNDI ([facility]) anion gap 9 mEq/L 8-16 Anion Gap CYNDI ([facility]) calcium level 8.7 mg/dL 8.5-10.1 Calcium Level ARMSTRONG ( [facility]) ID Date Data Source [id number] 12/11/2020 08:05:00 PM EST CYNDI ([facility]) Name Value Range Interpretation Code Description Data Claribel rce(s) Supporting Document(s) magnesium level 1.6 mg/dL 1.8-2.4 Below low normal Magnesium Leve l CYNDI ([facility]) ID Date Data Source [id number] 12/11/2020 08:05:00 PM EST CYNDI ([facility]) Name Value Range Interpretation Code Description Data Claribel rce(s) Supporting Document(s) phosphorus level 1.8 mg/dL 2.5-4.9 Below low normal Phosphorus Le karma CYNDI ([facility]) ID Date Data Source [id number] 12/11/2020 08:05:00 PM EST CYNDI ([facility]) Name Value Range Interpretation Code Description Data Claribel rce(s) Supporting Document(s) blood urea nitrogen 14 mg/dL 7-18 Blood Urea Nitro gen CYNDI ([facility]) glucose, fasting 162 mg/dL 70-100 Above high normal Glucose, Fas ting CYNDI ([facility]) creatinine for GFR 1.21 mg/dL 0.55-1.30 Creatinine for GF R ARMSTRONG ([facility]) glomerular filtration rate >60 Below low normal Mariza merular Filtration Rate CYNDI ([facility]) sodium level 142 mEq/L 136-145 Sodium Level CYNDI ([facility]) potassium serum 3.6 mEq/L 3.5-5.1 Potassium Serum ATHE NA ([facility]) chloride level 114 mEq/L 98-107 Above high normal Chloride Level ARMSTRONG ([facility]) carbon dioxide level 19 mEq/L 21-32 Below low normal Carbon Di oxide Level CYNDI ([facility]) calcium level 8.7 mg/dL 8.5-10.1 Calcium Level ARMSTRONG ( [facility]) anion gap 9 mEq/L 8-16 Anion Gap CYNDI ([facility]) ID Date Data Source [id number] 12/11/2020 08:05:00 PM EST CYNDI ([facility]) Name Value Range Interpretation Code Description Data Claribel rce(s) Supporting Document(s) magnesium level 1.6 mg/dL 1.8-2.4 Below low normal Magnesium Leve l CYNDI ([facility]) ID Date Data Source [id number] 12/11/2020 08:05:00 PM EST CYNDI ([facility]) Name Value Range Interpretation Code Description Data Claribel rce(s) Supporting Document(s) phosphorus level 1.8 mg/dL 2.5-4.9 Below low normal Phosphorus Le karma CYNDI ([facility]) ID Date Data Source [id number] 12/11/2020 08:05:00 PM EST CYNDI ([facility]) Name Value Range Interpretation Code Description Data Claribel rce(s) Supporting Document(s) glucose, fasting 162 mg/dL 70-100 Above high normal Glucose, Fas ting CYNDI ([facility]) creatinine for GFR 1.21 mg/dL 0.55-1.30 Creatinine for GF R CYNDI ([facility]) blood urea nitrogen 14 mg/dL 7-18 Blood Urea Nitro gen CYNDI ([facility]) potassium serum 3.6 mEq/L 3.5-5.1 Potassium Serum ATHE NA ([facility]) glomerular filtration rate >60 Below low normal Mariza merular Filtration Rate CYNDI ([facility]) sodium level 142 mEq/L 136-145 Sodium Level CYNDI ([facility]) carbon dioxide level 19 mEq/L 21-32 Below low normal Carbon Di oxide Level CYNDI ([facility]) chloride level 114 mEq/L 98-107 Above high normal Chloride Level CYNDI ([facility]) anion gap 9 mEq/L 8-16 Anion Gap CYNDI ([facility]) calcium level 8.7 mg/dL 8.5-10.1 Calcium Level ARMSTRONG ( [facility]) ID Date Data Source [id number] 12/11/2020 08:05:00 PM EST CYNDI ([facility]) Name Value Range Interpretation Code Description Data Claribel rce(s) Supporting Document(s) magnesium level 1.6 mg/dL 1.8-2.4 Below low normal Magnesium Leve l CYNDI ([facility]) ID Date Data Source [id number] 12/11/2020 08:05:00 PM EST CYNDI ([facility]) Name Value Range Interpretation Code Description Data Claribel rce(s) Supporting Document(s) phosphorus level 1.8 mg/dL 2.5-4.9 Below low normal Phosphorus Le karma CYNDI ([facility]) ID Date Data Source [id number] 12/11/2020 08:05:00 PM EST CYNDI ([facility]) Name Value Range Interpretation Code Description Data Claribel rce(s) Supporting Document(s) glucose, fasting 162 mg/dL 70-100 Above high normal Glucose, Fas ting CYNDI ([facility]) blood urea nitrogen 14 mg/dL 7-18 Blood Urea Nitro gen ARMSTRONG ([facility]) glomerular filtration rate >60 Below low normal Mariza merular Filtration Rate CYNDI ([facility]) creatinine for GFR 1.21 mg/dL 0.55-1.30 Creatinine for GF R CYNDI ([facility]) potassium serum 3.6 mEq/L 3.5-5.1 Potassium Serum ATHE NA ([facility]) sodium level 142 mEq/L 136-145 Sodium Level CYNDI ([facility]) chloride level 114 mEq/L 98-107 Above high normal Chloride Level CYNDI ([facility]) anion gap 9 mEq/L 8-16 Anion Gap ARMSTRONG ([facility]) carbon dioxide level 19 mEq/L 21-32 Below low normal Carbon Di oxide Level ARMSTRONG ([facility]) calcium level 8.7 mg/dL 8.5-10.1 Calcium Level CYNDI ( [facility]) ID Date Data Source [id number] 12/11/2020 08:05:00 PM EST CYNDI ([facility]) Name Value Range Interpretation Code Description Data Claribel rce(s) Supporting Document(s) magnesium level 1.6 mg/dL 1.8-2.4 Below low normal Magnesium Leve l CYNDI ([facility]) ID Date Data Source [id number] 12/11/2020 08:05:00 PM EST CYNDI ([facility]) Name Value Range Interpretation Code Description Data Claribel rce(s) Supporting Document(s) phosphorus level 1.8 mg/dL 2.5-4.9 Below low normal Phosphorus Le karma CYNDI ([facility]) ID Date Data Source [id number] 12/11/2020 08:05:00 PM EST CYNDI ([facility]) Name Value Range Interpretation Code Description Data Claribel rce(s) Supporting Document(s) blood urea nitrogen 14 mg/dL 7-18 Blood Urea Nitro gen CYNDI ([facility]) glucose, fasting 162 mg/dL 70-100 Above high normal Glucose, Fas ting CYNDI ([facility]) glomerular filtration rate >60 Below low normal Mariza merular Filtration Rate CYNDI ([facility]) creatinine for GFR 1.21 mg/dL 0.55-1.30 Creatinine for GF R CYNDI ([facility]) sodium level 142 mEq/L 136-145 Sodium Level CYNDI ([facility]) potassium serum 3.6 mEq/L 3.5-5.1 Potassium Serum ATHE NA ([facility]) chloride level 114 mEq/L 98-107 Above high normal Chloride Level ARMSTRONG ([facility]) anion gap 9 mEq/L 8-16 Anion Gap CYNDI ([facility]) carbon dioxide level 19 mEq/L 21-32 Below low normal Carbon Di oxide Level ARMSTRONG ([facility]) calcium level 8.7 mg/dL 8.5-10.1 Calcium Level ARMSTRONG ( [facility]) ID Date Data Source [id number] 12/11/2020 07:18:00 PM EST CYNDI ([facility]) Name Value Range Interpretation Code Description Data Claribel rce(s) Supporting Document(s) bedside glucose 160 mg/dL 70-105 Above high normal Bedside Gluco se ARMSTRONG ([facility]) ID Date Data Source [id number] 12/11/2020 07:18:00 PM EST ARMSTRONG ([facility]) Name Value Range Interpretation Code Description Data Claribel rce(s) Supporting Document(s) bedside glucose 160 mg/dL 70-105 Above high normal Bedside Gluco se [facility]) ID Date Data Source [id number] 12/11/2020 07:18:00 PM EST [facility]) Name Value Range Interpretation Code Description Data Claribel rce(s) Supporting Document(s) bedside glucose 160 mg/dL 70-105 Above high normal Bedside Gluco se [facility]) ID Date Data Source [id number] 12/11/2020 07:18:00 PM EST CYNDI ([facility]) Name Value Range Interpretation Code Description Data Claribel rce(s) Supporting Document(s) bedside glucose 160 mg/dL 70-105 Above high normal Bedside Gluco se [facility]) ID Date Data Source [id number] 12/11/2020 07:18:[facility] Name Value Range Interpretation Code Description Data Claribel rce(s) Supporting Document(s) bedside glucose 160 mg/dL 70-105 Above high normal [facility] ID Date Data Source [id number] 12/11/2020 07:18:00 PM EST CYNDI ([facility]) Name Value Range Interpretation Code Description Data Claribel rce(s) Supporting Document(s) bedside glucose 160 mg/dL 70-105 Above high normal Bedside Gluco se CYNDI ([facility]) ID Date Data Source [id number] 12/11/2020 06:13:00 PM EST CYNDI ([facility]) Name Value Range Interpretation Code Description Data Claribel rce(s) Supporting Document(s) bedside glucose 187 mg/dL 70-105 Above high normal Bedside Gluco se CYNDI ([facility]) ID Date Data Source [id number] 12/11/2020 06:13:00 PM EST CYNDI ([facility]) Name Value Range Interpretation Code Description Data Claribel rce(s) Supporting Document(s) bedside glucose 187 mg/dL 70-105 Above high normal Bedside Gluco se CYNDI ([facility]) ID Date Data Source [id number] 12/11/2020 06:13:00 PM EST CYNDI ([facility]) Name Value Range Interpretation Code Description Data Claribel rce(s) Supporting Document(s) bedside glucose 187 mg/dL 70-105 Above high normal Bedside Gluco se CYNDI ([facility]) ID Date Data Source [id number] 12/11/2020 06:13:00 PM EST CYNDI ([facility]) Name Value Range Interpretation Code Description Data Claribel rce(s) Supporting Document(s) bedside glucose 187 mg/dL 70-105 Above high normal Bedside Gluco se CYNDI ([facility]) ID Date Data Source [id number] 12/11/2020 06:13:00 PM EST CYNDI ([facility]) Name Value Range Interpretation Code Description Data Claribel rce(s) Supporting Document(s) bedside glucose 187 mg/dL 70-105 Above high normal Bedside Gluco se CYDNI ([facility]) ID Date Data Source [id number] 12/11/2020 06:13:00 PM EST CYNDI ([facility]) Name Value Range Interpretation Code Description Data Claribel rce(s) Supporting Document(s) bedside glucose 187 mg/dL 70-105 Above high normal Bedside Gluco se CYNDI ([facility]) ID Date Data Source [id number] 12/11/2020 04:58:00 PM EST CYNDI ([facility]) Name Value Range Interpretation Code Description Data Claribel rce(s) Supporting Document(s) bedside glucose 146 mg/dL 70-105 Above high normal Bedside Gluco se CYNDI ([facility]) ID Date Data Source [id number] 12/11/2020 04:58:00 PM EST CYNDI ([facility]) Name Value Range Interpretation Code Description Data Claribel rce(s) Supporting Document(s) bedside glucose 146 mg/dL 70-105 Above high normal Bedside Gluco se CYNDI ([facility]) ID Date Data Source [id number] 12/11/2020 04:58:00 PM EST CYNDI ([facility]) Name Value Range Interpretation Code Description Data Claribel rce(s) Supporting Document(s) bedside glucose 146 mg/dL 70-105 Above high normal [facility] Date Data Source [id number] 12/11/2020 04:58:00 PM EST CYNDI ([facility]) Name Value Range Interpretation Code Description Data Claribel rce(s) Supporting Document(s) bedside glucose 146 mg/dL 70-105 Above high normal Bedside Gluco se CYNDI ([facility]) ID Date Data Source [id number] 12/11/2020 04:58:00 PM EST CYNDI ([facility]) Name Value Range Interpretation Code Description Data Claribel rce(s) Supporting Document(s) bedside glucose 146 mg/dL 70-105 Above high normal Bedside Gluco se CYNDI ([facility]) ID Date Data Source [id number] 12/11/2020 04:58:00 PM EST CYNDI ([facility]) Name Value Range Interpretation Code Description Data Claribel rce(s) Supporting Document(s) bedside glucose 146 mg/dL 70-105 Above high normal Bedside Gluco se CYNDI ([facility]) ID Date Data Source [id number] 12/11/2020 04:56:00 PM EST CYNDI ([facility]) Name Value Range Interpretation Code Description Data Claribel rce(s) Supporting Document(s) phosphorus level 1.9 mg/dL 2.5-4.9 Below low normal Phosphorus Le karma CYNDI ([facility]) ID Date Data Source [id number] 12/11/2020 04:56:00 PM EST CYNDI ([facility]) Name Value Range Interpretation Code Description Data Claribel rce(s) Supporting Document(s) glucose, fasting 169 mg/dL 70-100 Above high normal Glucose, Fas ting CYNDI ([facility]) blood urea nitrogen 16 mg/dL 7-18 Blood Urea Nitro gen CYNDI ([facility]) creatinine for GFR 1.19 mg/dL 0.55-1.30 Creatinine for GF R ARMSTRONG ([facility]) glomerular filtration rate >60 Below low normal Mariza merular Filtration Rate CYNDI ([facility]) sodium level 141 mEq/L 136-145 Sodium Level CYNDI ([facility]) potassium serum 3.5 mEq/L 3.5-5.1 Potassium Serum ATHE NA ([facility]) chloride level 112 mEq/L 98-107 Above high normal Chloride Level CYNDI ([facility]) carbon dioxide level 18 mEq/L 21-32 Below low normal Carbon Di oxide Level CYNDI ([facility]) calcium level 8.6 mg/dL 8.5-10.1 Calcium Level CYNDI ( [facility]) anion gap 11 mEq/L 8-16 Anion Gap CYNDI ([facility]) ID Date Data Source [id number] 12/11/2020 04:56:00 PM EST CNYDI ([facility]) Name Value Range Interpretation Code Description Data Claribel rce(s) Supporting Document(s) venous pH 7.305 units 7.330-7.430 Below low normal Venous pH CYNDI ([facility]) venous partial pressure CO2 35.7 mmHg 38.0-50.0 Below low nor mal Venous Partial Pressure CO2 CYNDI ([facility]) venous partial pressure O2 188.7 mmHg 30.0-50.0 Above high nor mal Venous Partial Pressure O2 CYNDI ([facility]) venous total CO2 18.5 mEq/L 24.0-28.0 Below low normal Venous Total CO2 YCNDI ([facility]) venous base excess -2.0-2.0 Below low normal Venous Base Excess CYNDI ([facility]) venous HCO3 17.4 mEq/L 23.0-27.0 Below low normal Venous HCO3 CYNDI ([facility]) venous standard HCO3 17.9 mEq/L Venous Standard HCO3 CYNDI ([facility]) venous O2 saturation 99.3 % 60.0-80.0 Above high normal Venous O 2 Saturation CYNDI ([facility]) ID Date Data Source [id number] 12/11/2020 04:56:00 PM EST CYNDI ([facility]) Name Value Range Interpretation Code Description Data Claribel rce(s) Supporting Document(s) phosphorus level 1.9 mg/dL 2.5-4.9 Below low normal Phosphorus Le karma CYNDI ([facility]) ID Date Data Source [id number] 12/11/2020 04:56:00 PM EST CYNDI ([facility]) Name Value Range Interpretation Code Description Data Claribel rce(s) Supporting Document(s) glucose, fasting 169 mg/dL 70-100 Above high normal Glucose, Fas ting ARMSTRONG ([facility]) creatinine for GFR 1.19 mg/dL 0.55-1.30 Creatinine for GF R CYNDI ([facility]) blood urea nitrogen 16 mg/dL 7-18 Blood Urea Nitro gen CYNDI ([facility]) glomerular filtration rate >60 Below low normal Mariza merular Filtration Rate CYNDI ([facility]) sodium level 141 mEq/L 136-145 Sodium Level CYNDI ([facility]) potassium serum 3.5 mEq/L 3.5-5.1 Potassium Serum ATH NA ([facility]) chloride level 112 mEq/L 98-107 Above high normal Chloride Level ARMSTRONG ([facility]) carbon dioxide level 18 mEq/L 21-32 Below low normal Carbon Di oxide Level ARMSTRONG ([facility]) anion gap 11 mEq/L 8-16 Anion Gap ARMSTRONG ([facility]) calcium level 8.6 mg/dL 8.5-10.1 Calcium Level ARMSTRONG ( [facility]) ID Date Data Source [id number] 12/11/2020 04:56:00 PM EST ARMSTRONG ([facility]) Name Value Range Interpretation Code Description Data Claribel rce(s) Supporting Document(s) venous pH 7.305 units 7.330-7.430 Below low normal Venous pH ARMSTRONG ([facility]) venous partial pressure O2 188.7 mmHg 30.0-50.0 Above high nor mal Venous Partial Pressure O2 ARMSTRONG ([facility]) venous partial pressure CO2 35.7 mmHg 38.0-50.0 Below low nor mal Venous Partial Pressure CO2 CYNDI ([facility]) venous HCO3 17.4 mEq/L 23.0-27.0 Below low normal Venous HCO3 ARMSTRONG ([facility]) venous total CO2 18.5 mEq/L 24.0-28.0 Below low normal Venous Total CO2 CYNDI ([facility]) venous base excess -2.0-2.0 Below low normal Venous Base Excess ARMSTRONG ([facility]) venous standard HCO3 17.9 mEq/L Venous Standard HCO3 CYNDI ([facility]) venous O2 saturation 99.3 % 60.0-80.0 Above high normal Venous O 2 Saturation ARMSTRONG ([facility]) ID Date Data Source [id number] 12/11/2020 04:56:00 PM EST ARMSTRONG ([facility]) Name Value Range Interpretation Code Description Data Claribel rce(s) Supporting Document(s) phosphorus level 1.9 mg/dL 2.5-4.9 Below low normal Phosphorus Le karma CYNDI ([facility]) ID Date Data Source [id number] 12/11/2020 04:56:00 PM EST ARMSTRONG ([facility]) Name Value Range Interpretation Code Description Data Claribel rce(s) Supporting Document(s) glucose, fasting 169 mg/dL 70-100 Above high normal Glucose, Fas ting ARMSTRONG ([facility]) creatinine for GFR 1.19 mg/dL 0.55-1.30 Creatinine for GF R CYNDI ([facility]) blood urea nitrogen 16 mg/dL 7-18 Blood Urea Nitro gen CYNDI ([facility]) sodium level 141 mEq/L 136-145 Sodium Level CYNDI ([facility]) glomerular filtration rate >60 Below low normal Mariza merular Filtration Rate CYNDI ([facility]) chloride level 112 mEq/L 98-107 Above high normal Chloride Level ARMSTRONG ([facility]) potassium serum 3.5 mEq/L 3.5-5.1 Potassium Serum ATHE NA ([facility]) anion gap 11 mEq/L 8-16 Anion Gap CYNDI ([facility]) carbon dioxide level 18 mEq/L 21-32 Below low normal Carbon Di oxide Level CYNDI ([facility]) calcium level 8.6 mg/dL 8.5-10.1 Calcium Level CYNDI ( [facility]) ID Date Data Source [id number] 12/11/2020 04:56:00 PM EST CYNDI ([facility]) Name Value Range Interpretation Code Description Data Claribel rce(s) Supporting Document(s) venous partial pressure CO2 35.7 mmHg 38.0-50.0 Below low nor mal Venous Partial Pressure CO2 CYNDI ([facility]) venous pH 7.305 units 7.330-7.430 Below low normal Venous pH ARMSTRONG ([facility]) venous total CO2 18.5 mEq/L 24.0-28.0 Below low normal Venous Total CO2 ARMSTRONG ([facility]) venous partial pressure O2 188.7 mmHg 30.0-50.0 Above high nor mal Venous Partial Pressure O2 ARMSTRONG ([facility]) venous HCO3 17.4 mEq/L 23.0-27.0 Below low normal Venous HCO3 ARMSTRONG ([facility]) venous standard HCO3 17.9 mEq/L Venous Standard HCO3 ARMSTRONG ([facility]) venous base excess -2.0-2.0 Below low normal Venous Base Excess ARMSTRONG ([facility]) venous O2 saturation 99.3 % 60.0-80.0 Above high normal Venous O 2 Saturation ARMSTRONG ([facility]) ID Date Data Source [id number] 12/11/2020 04:56:00 PM EST CYNDI ([facility]) Name Value Range Interpretation Code Description Data Claribel rce(s) Supporting Document(s) phosphorus level 1.9 mg/dL 2.5-4.9 Below low normal Phosphorus Le karma CYNDI ([facility]) ID Date Data Source [id number] 12/11/2020 04:56:00 PM EST CYNDI ([facility]) Name Value Range Interpretation Code Description Data Claribel rce(s) Supporting Document(s) glucose, fasting 169 mg/dL 70-100 Above high normal Glucose, Fas ting ARMSTRONG ([facility]) blood urea nitrogen 16 mg/dL 7-18 Blood Urea Nitro gen CYNDI ([facility]) creatinine for GFR 1.19 mg/dL 0.55-1.30 Creatinine for GF R CYNDI ([facility]) sodium level 141 mEq/L 136-145 Sodium Level CYNDI ([facility]) glomerular filtration rate >60 Below low normal Mariza merular Filtration Rate CYNDI ([facility]) chloride level 112 mEq/L 98-107 Above high normal Chloride Level CYNDI ([facility]) potassium serum 3.5 mEq/L 3.5-5.1 Potassium Serum ATHE NA ([facility]) carbon dioxide level 18 mEq/L 21-32 Below low normal Carbon Di oxide Level CYNDI ([facility]) anion gap 11 mEq/L 8-16 Anion Gap CYNDI ([facility]) calcium level 8.6 mg/dL 8.5-10.1 Calcium Level ARMSTRONG ( [facility]) ID Date Data Source [id number] 12/11/2020 04:56:00 PM EST CYNDI ([facility]) Name Value Range Interpretation Code Description Data Claribel rce(s) Supporting Document(s) venous partial pressure CO2 35.7 mmHg 38.0-50.0 Below low nor mal Venous Partial Pressure CO2 YCNDI ([facility]) venous pH 7.305 units 7.330-7.430 Below low normal Venous pH ARMSTRONG ([facility]) venous partial pressure O2 188.7 mmHg 30.0-50.0 Above high nor mal Venous [facility] venous total CO2 18.5 mEq/L 24.0-28.0 Below low normal Venous Total CO2 CYNDI ([facility]) venous HCO3 17.4 mEq/L 23.0-27.0 Below low normal Venous HCO3 CYNDI ([facility]) venous standard HCO3 17.9 mEq/L Venous Standard HCO3 ARMSTRONG ([facility]) venous base excess -2.0-2.0 Below low normal Venous Base Excess ARMSTRONG ([facility]) venous O2 saturation 99.3 % 60.0-80.0 Above high normal Venous O 2 Saturation ARMSTRONG ([facility]) ID Date Data Source [id number] 12/11/2020 04:56:00 PM EST CYNDI ([facility]) Name Value Range Interpretation Code Description Data Claribel rce(s) Supporting Document(s) phosphorus level 1.9 mg/dL 2.5-4.9 Below low normal Phosphorus Le karma CYNDI ([facility]) ID Date Data Source [id number] 12/11/2020 04:56:00 PM EST [facility] [facility]) Name Value Range Interpretation Code Description Data Claribel rce(s) Supporting Document(s) glucose, fasting 169 mg/dL 70-100 Above high normal Glucose, Fas ting CYNDI ([facility]) creatinine for GFR 1.19 mg/dL 0.55-1.30 Creatinine for GF R ARMSTRONG ([facility]) blood urea nitrogen 16 mg/dL 7-18 Blood Urea Nitro gen CYNDI ([facility]) glomerular filtration rate >60 Below low normal Mariza merular Filtration Rate CYNDI ([facility]) sodium level 141 mEq/L 136-145 Sodium Level CYNDI ([facility]) potassium serum 3.5 mEq/L 3.5-5.1 Potassium Serum ATHE NA ([facility]) chloride level 112 mEq/L 98-107 Above high normal Chloride Level CYNDI ([facility]) anion gap 11 mEq/L 8-16 Anion Gap CYNDI ([facility]) carbon dioxide level 18 mEq/L 21-32 Below low normal Carbon Di oxide Level CYNDI ([facility]) calcium level 8.6 mg/dL 8.5-10.1 Calcium Level ARMSTRONG ( [facility]) ID Date Data Source [id number] 12/11/2020 04:56:00 PM EST CYNDI ([facility]) Name Value Range Interpretation Code Description Data Claribel rce(s) Supporting Document(s) venous pH 7.305 units 7.330-7.430 Below low normal Venous pH ARMSTRONG ([facility]) venous partial pressure CO2 35.7 mmHg 38.0-50.0 Below low nor mal Venous Partial Pressure CO2 CYNDI ([facility]) venous partial pressure O2 188.7 mmHg 30.0-50.0 Above high nor mal Venous Partial Pressure O2 CYNDI ([facility]) venous total CO2 18.5 mEq/L 24.0-28.0 Below low normal Venous Total CO2 CYNDI ([facility]) venous HCO3 17.4 mEq/L 23.0-27.0 Below low normal Venous HCO3 CYNDI ([facility]) venous standard HCO3 17.9 mEq/L Venous Standard HCO3 ARMSTRONG ([facility]) venous base excess -2.0-2.0 Below low normal Venous Base Excess ARMSTRONG ([facility]) venous O2 saturation 99.3 % 60.0-80.0 Above high normal Venous O 2 Saturation ARMSTRONG ([facility]) ID Date Data Source [id number] 12/11/2020 04:56:00 PM EST ARMSTRONG ([facility]) Name Value Range Interpretation Code Description Data Claribel rce(s) Supporting Document(s) phosphorus level 1.9 mg/dL 2.5-4.9 Below low normal Phosphorus Le karma ARMSTRONG ([facility]) ID Date Data Source [id number] 12/11/2020 04:56:00 PM EST ARMSTRONG ([facility]) Name Value Range Interpretation Code Description Data Claribel rce(s) Supporting Document(s) glucose, fasting 169 mg/dL 70-100 Above high normal Glucose, Fas ting ARMSTRONG ([facility]) blood urea nitrogen 16 mg/dL 7-18 Blood Urea Nitro gen CYNDI ([facility]) creatinine for GFR 1.19 mg/dL 0.55-1.30 Creatinine for GF R ARMSTRONG ([facility]) glomerular filtration rate >60 Below low normal Mariza merular Filtration Rate CYNDI ([facility]) sodium level 141 mEq/L 136-145 Sodium Level CYNDI ([facility]) potassium serum 3.5 mEq/L 3.5-5.1 Potassium Serum ATHE NA ([facility]) chloride level 112 mEq/L 98-107 Above high normal Chloride Level CYNDI ([facility]) carbon dioxide level 18 mEq/L 21-32 Below low normal Carbon Di oxide Level CYNDI ([facility]) calcium level 8.6 mg/dL 8.5-10.1 Calcium Level CYNDI ( [facility]) anion gap 11 mEq/L 8-16 Anion Gap CYNDI ([facility]) ID Date Data Source [id number] 12/11/2020 04:56:00 PM EST CYNDI ([facility]) Name Value Range Interpretation Code Description Data Claribel rce(s) Supporting Document(s) venous pH 7.305 units 7.330-7.430 Below low normal Venous pH CYNDI ([facility]) venous partial pressure CO2 35.7 mmHg 38.0-50.0 Below low nor mal Venous Partial Pressure CO2 CYNDI ([facility]) venous total CO2 18.5 mEq/L 24.0-28.0 Below low normal Venous Total CO2 CYNDI ([facility]) venous partial pressure O2 188.7 mmHg 30.0-50.0 Above high nor mal Venous Partial Pressure O2 CYNDI ([facility]) venous HCO3 17.4 mEq/L 23.0-27.0 Below low normal Venous HCO3 CYNDI ([facility]) venous base excess -2.0-2.0 Below low normal Venous Base Excess CYNDI ([facility]) venous O2 saturation 99.3 % 60.0-80.0 Above high normal Venous O 2 Saturation CYNDI ([facility]) venous standard HCO3 17.9 mEq/L Venous Standard HCO3 CYNDI ([facility]) ID Date Data Source [id number] 12/11/2020 04:01:00 PM EST CYNDI ([facility]) Name Value Range Interpretation Code Description Data Claribel rce(s) Supporting Document(s) bedside glucose 160 mg/dL 70-105 Above high normal Bedside Gluco se CYNDI ([facility]) ID Date Data Source [id number] 12/11/2020 04:01:00 PM EST CYNDI ([facility]) Name Value Range Interpretation Code Description Data Claribel rce(s) Supporting Document(s) bedside glucose 160 mg/dL 70-105 Above high normal Bedside Gluco se CYNDI ([facility]) ID Date Data Source [id number] 12/11/2020 04:01:00 PM EST CYNDI ([facility]) Name Value Range Interpretation Code Description Data Claribel rce(s) Supporting Document(s) bedside glucose 160 mg/dL 70-105 Above high normal Bedside Gluco se CYNDI ([facility]) ID Date Data Source [id number] 12/11/2020 04:01:00 PM EST CYNDI ([facility]) Name Value Range Interpretation Code Description Data Claribel rce(s) Supporting Document(s) bedside glucose 160 mg/dL 70-105 Above high normal Bedside Gluco se CYNDI ([facility]) ID Date Data Source [id number] 12/11/2020 04:01:00 PM EST CYNDI ([facility]) Name Value Range Interpretation Code Description Data Claribel rce(s) Supporting Document(s) bedside glucose 160 mg/dL 70-105 Above high normal Bedside Gluco se CYNDI ([facility]) ID Date Data Source [id number] 12/11/2020 04:01:00 PM EST CYNDI ([facility]) Name Value Range Interpretation Code Description Data Claribel rce(s) Supporting Document(s) bedside glucose 160 mg/dL 70-105 Above high normal Bedside Gluco se CYNDI ([facility]) ID Date Data Source [id number] 12/11/2020 03:04:00 PM EST CYNDI ([facility]) Name Value Range Interpretation Code Description Data Claribel rce(s) Supporting Document(s) bedside glucose 194 mg/dL 70-105 Above high normal Bedside Gluco se CYNID ([facility]) ID Date Data Source [id number] 12/11/2020 03:04:00 PM EST CYNDI ([facility]) Name Value Range Interpretation Code Description Data Claribel rce(s) Supporting Document(s) bedside glucose 194 mg/dL 70-105 Above high normal Bedside Gluco se CYNDI ([facility]) ID Date Data Source [id number] 12/11/2020 03:04:00 PM EST CYNDI ([facility]) Name Value Range Interpretation Code Description Data Claribel rce(s) Supporting Document(s) bedside glucose 194 mg/dL 70-105 Above high normal Bedside Gluco se CYNDI ([facility]) ID Date Data Source [id number] 12/11/2020 03:04:00 PM EST CYNDI ([facility]) Name Value Range Interpretation Code Description Data Claribel rce(s) Supporting Document(s) bedside glucose 194 mg/dL 70-105 Above high normal Bedside Gluco se CYNDI ([facility]) ID Date Data Source [id number] 12/11/2020 03:04:00 PM EST CYNDI ([facility]) Name Value Range Interpretation Code Description Data Claribel rce(s) Supporting Document(s) bedside glucose 194 mg/dL 70-105 Above high normal Bedside Gluco se CYNDI ([facility]) ID Date Data Source [id number] 12/11/2020 03:04:00 PM EST CYNDI ([facility]) Name Value Range Interpretation Code Description Data Claribel rce(s) Supporting Document(s) bedside glucose 194 mg/dL 70-105 Above high normal Bedside Gluco se CYNDI ([facility]) ID Date Data Source [id number] 12/11/2020 02:11:00 PM EST CYNDI ([facility]) Name Value Range Interpretation Code Description Data Claribel rce(s) Supporting Document(s) bedside glucose 148 mg/dL 70-105 Above high normal Bedside Gluco se ARMSTRONG ([facility]) ID Date Data Source [id number] 12/11/2020 02:11:00 PM EST CYNDI ([facility]) Name Value Range Interpretation Code Description Data Claribel rce(s) Supporting Document(s) bedside glucose 148 mg/dL 70-105 Above high normal Bedside Gluco se ARMSTRONG ([facility]) ID Date Data Source [id number] 12/11/2020 02:11:00 PM EST CYNDI ([facility]) Name Value Range Interpretation Code Description Data Claribel rce(s) Supporting Document(s) bedside glucose 148 mg/dL 70-105 Above high normal Bedside Gluco se ARMSTRONG ([facility]) ID Date Data Source [id number] 12/11/2020 02:11[facility] Name Value Range Interpretation Code Description Data Claribel rce(s) Supporting Document(s) bedside glucose 148 mg/dL 70-105 Above high normal [facility] ID Date Data Source [id number] 12/11/2020 02:11:00 PM EST CYNDI ([facility]) Name Value Range Interpretation Code Description Data Claribel rce(s) Supporting Document(s) bedside glucose 148 mg/dL 70-105 Above high normal Bedside Gluco se [facility]) ID Date Data Source [id number] 12/11/2020 02:11:00 PM EST CYNDI ([facility]) Name Value Range Interpretation Code Description Data Claribel rce(s) Supporting Document(s) bedside glucose 148 mg/dL 70-105 Above high normal Bedside Gluco se ARMSTRONG ([facility]) ID Date Data Source [id number] 12/11/2020 01:15:00 PM EST CYNDI ([facility]) Name Value Range Interpretation Code Description Data Claribel rce(s) Supporting Document(s) bedside glucose 157 mg/dL 70-105 Above high normal Bedside Gluco se CYNDI ([facility]) ID Date Data Source [id number] 12/11/2020 01:15:00 PM EST CYNDI ([facility]) Name Value Range Interpretation Code Description Data Claribel rce(s) Supporting Document(s) bedside glucose 157 mg/dL 70-105 Above high normal Bedside Gluco se ARMSTRONG ([facility]) ID Date Data Source [id number] 12/11/2020 01:15:00 PM EST CYNDI ([facility]) Name Value Range Interpretation Code Description Data Claribel rce(s) Supporting Document(s) bedside glucose 157 mg/dL 70-105 Above high normal Bedside Gluco se CYNDI ([facility]) ID Date Data Source [id number] 12/11/2020 01:15:00 PM EST CYNDI ([facility]) Name Value Range Interpretation Code Description Data Claribel rce(s) Supporting Document(s) bedside glucose 157 mg/dL 70-105 Above high normal Bedside Gluco se CYNDI ([facility]) ID Date Data Source [id number] 12/11/2020 01:15:00 PM EST CYNDI [facility]) Name Value Range Interpretation Code Description Data Claribel rce(s) Supporting Document(s) bedside glucose 157 mg/dL 70-105 Above high normal Bedside Gluco se CYNID ([facility]) ID Date Data Source [id number] 12/11/2020 01:15:00 PM EST CYNDI ([facility]) Name Value Range Interpretation Code Description Data Claribel rce(s) Supporting Document(s) bedside glucose 157 mg/dL 70-105 Above high normal Bedside Gluco se CYNDI ([facility]) ID Date Data Source [id number] 12/11/2020 01:05:00 PM EST CYNDI ([facility]) Name Value Range Interpretation Code Description Data Claribel rce(s) Supporting Document(s) osmolality serum 306 mOsm/kg 275-295 Above high normal Osmolality Serum ARMSTRONG ([facility]) ID Date Data Source [id number] 12/11/2020 01:05:00 PM EST CYNDI ([facility]) Name Value Range Interpretation Code Description Data Claribel rce(s) Supporting Document(s) phosphorus level 2.2 mg/dL 2.5-4.9 Below low normal Phosphorus Le karma CYNDI ([facility]) ID Date Data Source [id number] 12/11/2020 01:05:00 PM EST CYNDI ([facility]) Name Value Range Interpretation Code Description Data Claribel rce(s) Supporting Document(s) glucose, fasting 181 mg/dL 70-100 Above high normal Glucose, Fas ting CYNDI ([facility]) blood urea nitrogen 18 mg/dL 7-18 Blood Urea Nitro gen CNYDI ([facility]) creatinine for GFR 1.28 mg/dL 0.55-1.30 Creatinine for GF R ARMSTRONG ([facility]) glomerular filtration rate >60 Below low normal Mariza merular Filtration Rate CYNDI ([facility]) sodium level 141 mEq/L 136-145 Sodium Level CYNDI ([facility]) potassium serum 3.4 mEq/L 3.5-5.1 Below low normal Potassium Seru m CYNDI ([facility]) chloride level 112 mEq/L 98-107 Above high normal Chloride Level CYNDI ([facility]) carbon dioxide level 18 mEq/L 21-32 Below low normal Carbon Di oxide Level ARMSTRONG ([facility]) anion gap 11 mEq/L 8-16 Anion Gap CYNDI ([facility]) calcium level 8.6 mg/dL 8.5-10.1 Calcium Level ARMSTRONG ( [facility]) ID Date Data Source [id number] 12/11/2020 01:05:00 PM EST CYNDI ([facility]) Name Value Range Interpretation Code Description Data Claribel rce(s) Supporting Document(s) venous pH 7.238 units 7.330-7.430 Below low normal Venous pH ARMSTRONG ([facility]) venous partial pressure CO2 35.2 mmHg 38.0-50.0 Below low nor mal Venous Partial Pressure CO2 ARMSTRONG ([facility]) venous partial pressure O2 105.8 mmHg 30.0-50.0 Above high nor mal Venous Partial Pressure O2 ARMSTRONG ([facility]) venous total CO2 15.8 mEq/L 24.0-28.0 Below low normal Venous Total CO2 ARMSTRONG ([facility]) venous HCO3 14.7 mEq/L 23.0-27.0 Below low normal Venous HCO3 CYNDI ([facility]) venous base excess -2.0-2.0 Below low normal Venous Base Excess CYNDI ([facility]) venous standard HCO3 15.2 mEq/L Venous Standard HCO3 CYNDI ([facility]) venous O2 saturation 97.8 % 60.0-80.0 Above high normal Venous O 2 Saturation ARMSTRONG ([facility]) ID Date Data Source [id number] 12/11/2020 01:05:00 PM EST CYNDI ([facility]) Name Value Range Interpretation Code Description Data Claribel rce(s) Supporting Document(s) osmolality serum 306 mOsm/kg 275-295 Above high normal Osmolality Serum CYNDI [facility]) ID Date Data Source [id number] 12/11/2020 01:05:00 PM EST CYNDI ([facility]) Name Value Range Interpretation Code Description Data Claribel rce(s) Supporting Document(s) phosphorus level 2.2 mg/dL 2.5-4.9 Below low normal Phosphorus Le karma CYNDI ([facility]) ID Date Data Source [id number] 12/11/2020 01:05:00 PM EST CYNDI ([facility]) Name Value Range Interpretation Code Description Data Claribel rce(s) Supporting Document(s) blood urea nitrogen 18 mg/dL 7-18 Blood Urea Nitro gen CYNDI ([facility]) glucose, fasting 181 mg/dL 70-100 Above high normal Glucose, Fas ting CYNDI ([facility]) glomerular filtration rate >60 Below low normal Mariza merular Filtration Rate CYNDI ([facility]) creatinine for GFR 1.28 mg/dL 0.55-1.30 Creatinine for GF R CYNDI ([facility]) sodium level 141 mEq/L 136-145 Sodium Level CYNDI ([facility]) potassium serum 3.4 mEq/L 3.5-5.1 Below low normal Potassium Seru m CYNDI ([facility]) chloride level 112 mEq/L 98-107 Above high normal Chloride Level ARMSTRONG ([facility]) carbon dioxide level 18 mEq/L 21-32 Below low normal Carbon Di oxide Level ARMSTRONG ([facility]) anion gap 11 mEq/L 8-16 Anion Gap CYNDI ([facility]) calcium level 8.6 mg/dL 8.5-10.1 Calcium Level CYNDI ( [facility]) ID Date Data Source [id number] 12/11/2020 01:05:00 PM EST CYNDI ([facility]) Name Value Range Interpretation Code Description Data Claribel rce(s) Supporting Document(s) venous pH 7.238 units 7.330-7.430 Below low normal Venous pH CYNDI ([facility]) venous partial pressure CO2 35.2 mmHg 38.0-50.0 Below low nor mal Venous Partial Pressure CO2 CYNDI ([facility]) venous partial pressure O2 105.8 mmHg 30.0-50.0 Above high nor mal Venous Partial Pressure O2 CYNDI ([facility]) venous total CO2 15.8 mEq/L 24.0-28.0 Below low normal Venous Total CO2 CYNDI ([facility]) venous HCO3 14.7 mEq/L 23.0-27.0 Below low normal Venous HCO3 CYNDI ([facility]) venous base excess -2.0-2.0 Below low normal Venous Base Excess ARMSTRONG ([facility]) venous standard HCO3 15.2 mEq/L Venous Standard HCO3 ARMSTRONG ([facility]) venous O2 saturation 97.8 % 60.0-80.0 Above high normal Venous O 2 Saturation ARMSTRONG ([facility]) ID Date Data Source [id number] 12/11/2020 01:05:00 PM EST CYNDI ([facility]) Name Value Range Interpretation Code Description Data Claribel rce(s) Supporting Document(s) osmolality serum 306 mOsm/kg 275-295 Above high normal Osmolality Serum ARMSTRONG ([facility]) ID Date Data Source [id number] 12/11/2020 01:05:00 PM EST CYNDI ([facility]) Name Value Range Interpretation Code Description Data Claribel rce(s) Supporting Document(s) phosphorus level 2.2 mg/dL 2.5-4.9 Below low normal Phosphorus Le karma CYNDI ([facility]) ID Date Data Source [id number] 12/11/2020 01:05:00 PM EST CYNDI ([facility]) Name Value Range Interpretation Code Description Data Claribel rce(s) Supporting Document(s) glucose, fasting 181 mg/dL 70-100 Above high normal Glucose, Fas ting ARMSTRONG ([facility]) blood urea nitrogen 18 mg/dL 7-18 Blood Urea Nitro gen CYNDI ([facility]) glomerular filtration rate >60 Below low normal Mariza merular Filtration Rate CYNDI ([facility]) creatinine for GFR 1.28 mg/dL 0.55-1.30 Creatinine for GF R CYNDI ([facility]) sodium level 141 mEq/L 136-145 Sodium Level CYNDI ([facility]) potassium serum 3.4 mEq/L 3.5-5.1 Below low normal Potassium Seru m CYNDI ([facility]) chloride level 112 mEq/L 98-107 Above high normal Chloride Level CYNDI ([facility]) carbon dioxide level 18 mEq/L 21-32 Below low normal Carbon Di oxide Level ARMSTRONG ([facility]) anion gap 11 mEq/L 8-16 Anion Gap ARMSTRONG ([facility]) calcium level 8.6 mg/dL 8.5-10.1 Calcium Level ARMSTRONG ( [facility]) ID Date Data Source [id number] 12/11/2020 01:05:00 PM EST ARMSTRONG ([facility]) Name Value Range Interpretation Code Description Data Claribel rce(s) Supporting Document(s) venous pH 7.238 units 7.330-7.430 Below low normal Venous pH ARMSTRONG ([facility]) venous partial pressure CO2 35.2 mmHg 38.0-50.0 Below low nor mal Venous Partial Pressure CO2 ARMSTRONG ([facility]) venous total CO2 15.8 mEq/L 24.0-28.0 Below low normal Venous Total CO2 CYNDI ([facility]) venous partial pressure O2 105.8 mmHg 30.0-50.0 Above high nor mal Venous Partial Pressure O2 CYNDI ([facility]) venous HCO3 14.7 mEq/L 23.0-27.0 Below low normal Venous HCO3 [facility]) venous base excess -2.0-2.0 Below low normal Venous Base Excess ARMSTRONG ([facility]) venous O2 saturation 97.8 % 60.0-80.0 Above high normal Venous O 2 Saturation ARMSTRONG ([facility]) venous standard HCO3 15.2 mEq/L Venous Standard HCO3 ARMSTRONG ([facility]) ID Date Data Source [id number] 12/11/2020 01:05:00 PM EST CYNDI ([facility]) Name Value Range Interpretation Code Description Data Claribel rce(s) Supporting Document(s) osmolality serum 306 mOsm/kg 275-295 Above high normal Osmolality Serum ARMSTRONG ([facility]) ID Date Data Source [id number] 12/11/2020 01:05:00 PM EST CYNDI ([facility]) Name Value Range Interpretation Code Description Data Claribel rce(s) Supporting Document(s) phosphorus level 2.2 mg/dL 2.5-4.9 Below low normal Phosphorus Le karma CYNDI ([facility]) ID Date Data Source [id number] 12/11/2020 01:05:00 PM EST CYNDI ([facility]) Name Value Range Interpretation Code Description Data Claribel rce(s) Supporting Document(s) glucose, fasting 181 mg/dL 70-100 Above high normal Glucose, Fas ting ARMSTRONG ([facility]) blood urea nitrogen 18 mg/dL 7-18 Blood Urea Nitro gen ARMSTRONG ([facility]) creatinine for GFR 1.28 mg/dL 0.55-1.30 Creatinine for GF R ARMSTRONG ([facility]) glomerular filtration rate >60 Below low normal Mariza merular Filtration Rate CYNDI ([facility]) potassium serum 3.4 mEq/L 3.5-5.1 Below low normal Potassium Seru m CYNDI ([facility]) sodium level 141 mEq/L 136-145 Sodium Level CYNDI ([facility]) chloride level 112 mEq/L 98-107 Above high normal Chloride Level CYNDI ([facility]) carbon dioxide level 18 mEq/L 21-32 Below low normal Carbon Di oxide Level CYNDI ([facility]) anion gap 11 mEq/L 8-16 Anion Gap ARMSTRONG ([facility]) calcium level 8.6 mg/dL 8.5-10.1 Calcium Level CYNDI ( [facility]) ID Date Data Source [id number] 12/11/2020 01:05:00 PM EST CYNDI ([facility]) Name Value Range Interpretation Code Description Data Claribel rce(s) Supporting Document(s) venous pH 7.238 units 7.330-7.430 Below low normal Venous pH CYNDI ([facility]) venous partial pressure CO2 35.2 mmHg 38.0-50.0 Below low nor mal Venous Partial Pressure CO2 CYNDI ([facility]) venous partial pressure O2 105.8 mmHg 30.0-50.0 Above high nor mal Venous Partial Pressure O2 CYNDI ([facility]) venous total CO2 15.8 mEq/L 24.0-28.0 Below low normal Venous Total CO2 CYNDI ([facility]) venous HCO3 14.7 mEq/L 23.0-27.0 Below low normal Venous HCO3 CYNDI ([facility]) venous base excess -2.0-2.0 Below low normal Venous Base Excess ARMSTRONG ([facility]) venous O2 saturation 97.8 % 60.0-80.0 Above high normal Venous O 2 Saturation ARMSTRONG ([facility]) venous standard HCO3 15.2 mEq/L Venous Standard HCO3 CYNDI ([facility]) ID Date Data Source [id number] 12/11/2020 01:05:00 PM EST CYNDI ([facility]) Name Value Range Interpretation Code Description Data Claribel rce(s) Supporting Document(s) osmolality serum 306 mOsm/kg 275-295 Above high normal Osmolality Serum CYNDI ([facility]) ID Date Data Source [id number] 12/11/2020 01:05:00 PM EST CYNDI ([facility]) Name Value Range Interpretation Code Description Data Claribel rce(s) Supporting Document(s) phosphorus level 2.2 mg/dL 2.5-4.9 Below low normal Phosphorus Le karma CYNDI ([facility]) ID Date Data Source [id number] 12/11/2020 01:05:00 PM EST CYNDI ([facility]) Name Value Range Interpretation Code Description Data Claribel rce(s) Supporting Document(s) glucose, fasting 181 mg/dL 70-100 Above high normal Glucose, Fas ting ARMSTRONG ([facility]) blood urea nitrogen 18 mg/dL 7-18 Blood Urea Nitro gen ARMSTRONG ([facility]) creatinine for GFR 1.28 mg/dL 0.55-1.30 Creatinine for GF R ARMSTRONG ([facility]) sodium level 141 mEq/L 136-145 Sodium Level ARMSTRONG ([facility]) glomerular filtration rate >60 Below low normal Mariza merular Filtration Rate ARMSTRONG ([facility]) potassium serum 3.4 mEq/L 3.5-5.1 Below low normal Potassium Seru m ARMSTRONG ([facility]) chloride level 112 mEq/L 98-107 Above high normal Chloride Level ARMSTRONG ([facility]) carbon dioxide level 18 mEq/L 21-32 Below low normal Carbon Di oxide Level ARMSTRONG ([facility]) anion gap 11 mEq/L 8-16 Anion Gap ARMSTRONG ([facility]) calcium level 8.6 mg/dL 8.5-10.1 Calcium Level ARMSTRONG ( [facility]) ID Date Data Source [id number] 12/11/2020 01:05:00 PM EST CYNDI ([facility]) Name Value Range Interpretation Code Description Data Claribel rce(s) Supporting Document(s) venous pH 7.238 units 7.330-7.430 Below low normal Venous pH ARMSTRONG ([facility]) venous partial pressure CO2 35.2 mmHg 38.0-50.0 Below low nor mal Venous Partial Pressure CO2 ARMSTRONG ([facility]) venous partial pressure O2 105.8 mmHg 30.0-50.0 Above high nor mal Venous Partial Pressure O2 [facility]) venous HCO3 14.7 mEq/L 23.0-27.0 Below low normal Venous HCO3 ARMSTRONG ([facility]) venous total CO2 15.8 mEq/L 24.0-28.0 Below low normal Venous Total CO2 CYNDI ([facility]) venous base excess -2.0-2.0 Below low normal Venous Base Excess CYNDI ([facility]) venous standard HCO3 15.2 mEq/L Venous Standard HCO3 CYNDI ([facility]) venous O2 saturation 97.8 % 60.0-80.0 Above high normal Venous O 2 Saturation ARMSTRONG ([facility]) ID Date Data Source [id number] 12/11/2020 01:05:00 PM EST CYNDI ([facility]) Name Value Range Interpretation Code Description Data Claribel rce(s) Supporting Document(s) osmolality serum 306 mOsm/kg 275-295 Above high normal Osmolality Serum ARMSTRONG ([facility]) ID Date Data Source [id number] 12/11/2020 01:05:00 PM EST CYNDI ([facility]) Name Value Range Interpretation Code Description Data Claribel rce(s) Supporting Document(s) phosphorus level 2.2 mg/dL 2.5-4.9 Below low normal Phosphorus Le karma CYNDI ([facility]) ID Date Data Source [id number] 12/11/2020 01:05:00 PM EST CYNDI ([facility]) Name Value Range Interpretation Code Description Data Claribel rce(s) Supporting Document(s) blood urea nitrogen 18 mg/dL 7-18 Blood Urea Nitro gen CYNDI ([facility]) glucose, fasting 181 mg/dL 70-100 Above high normal Glucose, Fas ting CYNDI ([facility]) creatinine for GFR 1.28 mg/dL 0.55-1.30 Creatinine for GF R ARMSTRONG ([facility]) glomerular filtration rate >60 Below low normal Mariza merular Filtration Rate CYNDI ([facility]) sodium level 141 mEq/L 136-145 Sodium Level CYNDI ([facility]) chloride level 112 mEq/L 98-107 Above high normal Chloride Level CYNDI ([facility]) potassium serum 3.4 mEq/L 3.5-5.1 Below low normal Potassium Seru m CYNDI ([facility]) anion gap 11 mEq/L 8-16 Anion Gap CYNDI ([facility]) carbon dioxide level 18 mEq/L 21-32 Below low normal Carbon Di oxide Level CYNDI ([facility]) calcium level 8.6 mg/dL 8.5-10.1 Calcium Level ARMSTRONG ( [facility]) ID Date Data Source [id number] 12/11/2020 01:05:00 PM EST ARMSTRONG ([facility]) Name Value Range Interpretation Code Description Data Claribel rce(s) Supporting Document(s) venous pH 7.238 units 7.330-7.430 Below low normal Venous pH ARMSTRONG ([facility]) venous partial pressure CO2 35.2 mmHg 38.0-50.0 Below low nor mal Venous Partial Pressure CO2 ARMSTRONG ([facility]) venous partial pressure O2 105.8 mmHg 30.0-50.0 Above high nor mal Venous Partial Pressure O2 ARMSTRONG ([facility]) venous total CO2 15.8 mEq/L 24.0-28.0 Below low normal Venous Total CO2 CYNDI ([facility]) venous base excess -2.0-2.0 Below low normal Venous Base Excess CYNDI ([facility]) venous HCO3 14.7 mEq/L 23.0-27.0 Below low normal Venous HCO3 ARM[place]ONG ([facility]) venous standard HCO3 15.2 mEq/L Venous Standard HCO3 ARM[place]ONG ([facility]) venous O2 saturation 97.8 % 60.0-80.0 Above high normal Venous O 2 Saturation ARMSTRONG ([facility]) ID Date Data Source [id number] 12/11/2020 12:13:00 PM EST CYNDI ([facility]) Name Value Range Interpretation Code Description Data Claribel rce(s) Supporting Document(s) bedside glucose 162 mg/dL 70-105 Above high normal Bedside Gluco se ARMSTRONG ([facility]) ID Date Data Source [id number] 12/11/2020 12:13:00 PM EST CYNDI ([facility]) Name Value Range Interpretation Code Description Data Claribel rce(s) Supporting Document(s) bedside glucose 162 mg/dL 70-105 Above high normal Bedside Gluco se CYNDI ([facility]) ID Date Data Source [id number] 12/11/2020 12:13:00 PM EST CYNDI ([facility]) Name Value Range Interpretation Code Description Data Claribel rce(s) Supporting Document(s) bedside glucose 162 mg/dL 70-105 Above high normal Bedside Gluco se CYNDI ([facility]) ID Date Data Source [id number] 12/11/2020 12:13:00 PM EST CYNDI ([facility]) Name Value Range Interpretation Code Description Data Claribel rce(s) Supporting Document(s) bedside glucose 162 mg/dL 70-105 Above high normal Bedside Gluco se CYNDI ([facility]) ID Date Data Source [id number] 12/11/2020 12:13:00 PM EST CYNDI ([facility]) Name Value Range Interpretation Code Description Data Claribel rce(s) Supporting Document(s) bedside glucose 162 mg/dL 70-105 Above high normal Bedside Gluco se CYNDI ([facility]) ID Date Data Source [id number] 12/11/2020 12:13:00 PM EST CYNDI ([facility]) Name Value Range Interpretation Code Description Data Claribel rce(s) Supporting Document(s) bedside glucose 162 mg/dL 70-105 Above high normal Bedside Gluco se CYNDI ([facility]) ID Date Data Source [id number] 12/11/2020 11:07:00 AM EST CYNDI ([facility]) Name Value Range Interpretation Code Description Data Claribel rce(s) Supporting Document(s) bedside glucose 146 mg/dL 70-105 Above high normal Bedside Gluco se CYNDI ([facility]) ID Date Data Source [id number] 12/11/2020 11:07:00 AM EST CYNDI ([facility]) Name Value Range Interpretation Code Description Data Claribel rce(s) Supporting Document(s) bedside glucose 146 mg/dL 70-105 Above high normal Bedside Gluco se CYNDI ([facility]) ID Date Data Source [id number] 12/11/2020 11:07:00 AM EST CYNDI ([facility]) Name Value Range Interpretation Code Description Data Claribel rce(s) Supporting Document(s) bedside glucose 146 mg/dL 70-105 Above high normal [facility] Date Data Source [id number] 12/11/2020 11:07:00 AM EST [facility]) Name Value Range Interpretation Code Description Data Claribel rce(s) Supporting Document(s) bedside glucose 146 mg/dL 70-105 Above high normal [facility] ID Date Data Source [id number] 12/11/2020 11:07:00 AM EST CYNDI ([facility]) Name Value Range Interpretation Code Description Data Claribel rce(s) Supporting Document(s) bedside glucose 146 mg/dL 70-105 Above high normal [facility] ID Date Data Source [id number] 12/11/2020 11:07:00 AM EST CYNDI [facility]) Name Value Range Interpretation Code Description Data Claribel rce(s) Supporting Document(s) bedside glucose 146 mg/dL 70-105 Above high normal [facility] ID Date Data Source [id number] 12/11/2020 10:19:00 AM EST CYNDI ([facility]) Name Value Range Interpretation Code Description Data Claribel rce(s) Supporting Document(s) bedside glucose 159 mg/dL 70-105 Above high normal Bedside Gluco se CYNDI ([facility]) ID Date Data Source [id number] 12/11/2020 10:19:00 AM EST CYNDI ([facility]) Name Value Range Interpretation Code Description Data Claribel rce(s) Supporting Document(s) bedside glucose 159 mg/dL 70-105 Above high normal Bedside Gluco se CYNDI ([facility]) ID Date Data Source [id number] 12/11/2020 10:19:00 AM EST CYNDI ([facility]) Name Value Range Interpretation Code Description Data Claribel rce(s) Supporting Document(s) bedside glucose 159 mg/dL 70-105 Above high normal Bedside Gluco se CYNDI ([facility]) ID Date Data Source [id number] 12/11/2020 10:19:00 AM EST CYNDI ([facility]) Name Value Range Interpretation Code Description Data Claribel rce(s) Supporting Document(s) bedside glucose 159 mg/dL 70-105 Above high normal Bedside Gluco se CYNDI ([facility]) ID Date Data Source [id number] 12/11/2020 10:19:00 AM EST CYNDI ([facility]) Name Value Range Interpretation Code Description Data Claribel rce(s) Supporting Document(s) bedside glucose 159 mg/dL 70-105 Above high normal Bedside Gluco se CYNDI ([facility]) ID Date Data Source [id number] 12/11/2020 10:19:00 AM EST CYNDI ([facility]) Name Value Range Interpretation Code Description Data Claribel rce(s) Supporting Document(s) bedside glucose 159 mg/dL 70-105 Above high normal Bedside Gluco se CYNDI ([facility]) ID Date Data Source [id number] 12/11/2020 09:01:00 AM EST CYNDI ([facility]) Name Value Range Interpretation Code Description Data Claribel rce(s) Supporting Document(s) bedside glucose 189 mg/dL 70-105 Above high normal Bedside Gluco se CYNDI ([facility]) ID Date Data Source [id number] 12/11/2020 09:01:00 AM EST CYNDI ([facility]) Name Value Range Interpretation Code Description Data Claribel rce(s) Supporting Document(s) bedside glucose 189 mg/dL 70-105 Above high normal Bedside Gluco se CYNDI ([facility]) ID Date Data Source [id number] 12/11/2020 09:01:00 AM EST CYNDI ([facility]) Name Value Range Interpretation Code Description Data Claribel rce(s) Supporting Document(s) bedside glucose 189 mg/dL 70-105 Above high normal Bedside Gluco se CYNDI ([facility]) ID Date Data Source [id number] 12/11/2020 09:01:00 AM EST CYNDI ([facility]) Name Value Range Interpretation Code Description Data Claribel rce(s) Supporting Document(s) bedside glucose 189 mg/dL 70-105 Above high normal Bedside Gluco se CYNDI ([facility]) ID Date Data Source [id number] 12/11/2020 09:01:00 AM EST CYNDI ([facility]) Name Value Range Interpretation Code Description Data Claribel rce(s) Supporting Document(s) bedside glucose 189 mg/dL 70-105 Above high normal Bedside Gluco se CYNDI ([facility]) ID Date Data Source [id number] 12/11/2020 09:01:00 AM EST CYNDI ([facility]) Name Value Range Interpretation Code Description Data Claribel rce(s) Supporting Document(s) bedside glucose 189 mg/dL 70-105 Above high normal Bedside Gluco se CYNDI ([facility]) ID Date Data Source [id number] 12/11/2020 08:13:00 AM EST CYNDI ([facility]) Name Value Range Interpretation Code Description Data Claribel rce(s) Supporting Document(s) bedside glucose 168 mg/dL 70-105 Above high normal Bedside Gluco se ARMSTRONG ([facility]) ID Date Data Source [id number] 12/11/2020 08:13:00 AM EST CYNDI ([facility]) Name Value Range Interpretation Code Description Data Claribel rce(s) Supporting Document(s) bedside glucose 168 mg/dL 70-105 Above high normal Bedside Gluco se CYNDI ([facility]) ID Date Data Source [id number] 12/11/2020 08:13:00 AM EST CYNDI ([facility]) Name Value Range Interpretation Code Description Data Claribel rce(s) Supporting Document(s) bedside glucose 168 mg/dL 70-105 Above high normal Bedside Gluco se CYNDI ([facility]) ID Date Data Source [id number] 12/11/2020 08:13:00 AM EST CYNDI ([facility]) Name Value Range Interpretation Code Description Data Claribel rce(s) Supporting Document(s) bedside glucose 168 mg/dL 70-105 Above high normal [facility] ID Date Data Source [id number] 12/11/2020 08:13:00 AM EST CYNDI ([facility]) Name Value Range Interpretation Code Description Data Claribel rce(s) Supporting Document(s) bedside glucose 168 mg/dL 70-105 Above high normal Bedside Gluco se CYNDI ([facility]) ID Date Data Source [id number] 12/11/2020 08:13:00 AM EST CYNDI ([facility]) Name Value Range Interpretation Code Description Data Claribel rce(s) Supporting Document(s) bedside glucose 168 mg/dL 70-105 Above high normal Bedside Gluco se CYNDI ([facility]) ID Date Data Source [id number] 12/11/2020 07:57:00 AM EST CYNDI ([facility]) Name Value Range Interpretation Code Description Data Claribel rce(s) Supporting Document(s) phosphorus level 1.6 mg/dL 2.5-4.9 Below low normal Phosphorus Le karma CYNDI ([facility]) ID Date Data Source [id number] 12/11/2020 07:57:00 AM EST CYNDI ([facility]) Name Value Range Interpretation Code Description Data Claribel rce(s) Supporting Document(s) glucose, fasting 178 mg/dL 70-100 Above high normal Glucose, Fas ting CYNDI ([facility]) blood urea nitrogen 22 mg/dL 7-18 Above high normal Blood Ure a Nitrogen CYNDI ([facility]) creatinine for GFR 1.43 mg/dL 0.55-1.30 Above high normal Creatinine for GFR CYNDI ([facility]) glomerular filtration rate >60 Below low normal Mariza merular Filtration Rate CYNDI ([facility]) sodium level 141 mEq/L 136-145 Sodium Level CYNDI ([facility]) chloride level 112 mEq/L 98-107 Above high normal Chloride Level CYNDI ([facility]) potassium serum 3.7 mEq/L 3.5-5.1 Potassium Serum ATHE NA ([facility]) carbon dioxide level 17 mEq/L 21-32 Below low normal Carbon Di oxide Level CYNDI ([facility]) anion gap 12 mEq/L 8-16 Anion Gap CYNDI ([facility]) calcium level 8.8 mg/dL 8.5-10.1 Calcium Level CYNDI ( [facility]) ID Date Data Source [id number] 12/11/2020 07:57:00 AM EST CYNDI ([facility]) Name Value Range Interpretation Code Description Data Claribel rce(s) Supporting Document(s) phosphorus level 1.6 mg/dL 2.5-4.9 Below low normal Phosphorus Le karma CYNDI ([facility]) ID Date Data Source [id number] 12/11/2020 07:57:00 AM EST CYNDI ([facility]) Name Value Range Interpretation Code Description Data Claribel rce(s) Supporting Document(s) glucose, fasting 178 mg/dL 70-100 Above high normal Glucose, Fas ting CYNDI ([facility]) blood urea nitrogen 22 mg/dL 7-18 Above high normal Blood Ure a Nitrogen CYNDI ([facility]) creatinine for GFR 1.43 mg/dL 0.55-1.30 Above high normal Creatinine for GFR CYNDI ([facility]) glomerular filtration rate >60 Below low normal Mariza merular Filtration Rate CYNDI ([facility]) potassium serum 3.7 mEq/L 3.5-5.1 Potassium Serum ATHE NA ([facility]) sodium level 141 mEq/L 136-145 Sodium Level CYNDI ([facility]) chloride level 112 mEq/L 98-107 Above high normal Chloride Level CYNDI ([facility]) carbon dioxide level 17 mEq/L 21-32 Below low normal Carbon Di oxide Level CYNDI ([facility]) anion gap 12 mEq/L 8-16 Anion Gap CYNDI ([facility]) calcium level 8.8 mg/dL 8.5-10.1 Calcium Level CYNDI ( [facility]) ID Date Data Source [id number] 12/11/2020 07:57:00 AM EST CYNDI ([facility]) Name Value Range Interpretation Code Description Data Claribel rce(s) Supporting Document(s) phosphorus level 1.6 mg/dL 2.5-4.9 Below low normal Phosphorus Le karma CYNDI ([facility]) ID Date Data Source [id number] 12/11/2020 07:57:00 AM EST CYNDI ([facility]) Name Value Range Interpretation Code Description Data Claribel rce(s) Supporting Document(s) glucose, fasting 178 mg/dL 70-100 Above high normal Glucose, Fas ting CYNDI ([facility]) creatinine for GFR 1.43 mg/dL 0.55-1.30 Above high normal Creatinine for GFR ARMSTRONG ([facility]) blood urea nitrogen 22 mg/dL 7-18 Above high normal Blood Ure a Nitrogen CYNDI ([facility]) glomerular filtration rate >60 Below low normal Mariza merular Filtration Rate CYNDI ([facility]) sodium level 141 mEq/L 136-145 Sodium Level CYNDI ([facility]) potassium serum 3.7 mEq/L 3.5-5.1 Potassium Serum ATH NA ([facility]) chloride level 112 mEq/L 98-107 Above high normal Chloride Level ARMSTRONG ([facility]) carbon dioxide level 17 mEq/L 21-32 Below low normal Carbon Di oxide Level CYNDI ([facility]) calcium level 8.8 mg/dL 8.5-10.1 Calcium Level ARMSTRONG ( [facility]) anion gap 12 mEq/L 8-16 Anion Gap CYNDI ([facility]) ID Date Data Source [id number] 12/11/2020 07:57:00 AM EST CYNDI ([facility]) Name Value Range Interpretation Code Description Data Claribel rce(s) Supporting Document(s) phosphorus level 1.6 mg/dL 2.5-4.9 Below low normal Phosphorus Le karma CYNDI ([facility]) ID Date Data Source [id number] 12/11/2020 07:57:00 AM EST CYNDI ([facility]) Name Value Range Interpretation Code Description Data Claribel rce(s) Supporting Document(s) glucose, fasting 178 mg/dL 70-100 Above high normal Glucose, Fas ting [facility] ([facility]) blood urea nitrogen 22 mg/dL 7-18 Above high normal Blood Ure a Nitrogen CYNDI ([facility]) creatinine for GFR 1.43 mg/dL 0.55-1.30 Above high normal Creatinine for GFR CYNDI ([facility]) glomerular filtration rate >60 Below low normal Mariza merular Filtration Rate CYNDI ([facility]) sodium level 141 mEq/L 136-145 Sodium Level CY[facility]I ([facility]) potassium serum 3.7 mEq/L 3.5-5.1 Potassium Serum ATHE NA ([facility]) chloride level 112 mEq/L 98-107 Above high normal Chloride Level ARMSTRONG ([facility]) carbon dioxide level 17 mEq/L 21-32 Below low normal Carbon Di oxide Level CYNDI ([facility]) anion gap 12 mEq/L 8-16 Anion Gap CYNDI ([facility]) calcium level 8.8 mg/dL 8.5-10.1 Calcium Level ARMSTRONG ( [facility]) ID Date Data Source [id number] 12/11/2020 07:57:00 AM EST CYNDI ([facility]) Name Value Range Interpretation Code Description Data Claribel rce(s) Supporting Document(s) phosphorus level 1.6 mg/dL 2.5-4.9 Below low normal Phosphorus Le karma CYNDI ([facility]) ID Date Data Source [id number] 12/11/2020 07:57:00 AM EST CYNDI ([facility]) Name Value Range Interpretation Code Description Data Claribel rce(s) Supporting Document(s) glucose, fasting 178 mg/dL 70-100 Above high normal Glucose, Fas ting CYNDI ([facility]) creatinine for GFR 1.43 mg/dL 0.55-1.30 Above high normal Creatinine for GFR CYNDI ([facility]) blood urea nitrogen 22 mg/dL 7-18 Above high normal Blood Ure a Nitrogen CYNDI ([facility]) glomerular filtration rate >60 Below low normal Mariza merular Filtration Rate CYNDI ([facility]) sodium level 141 mEq/L 136-145 Sodium Level CYNDI ([facility]) chloride level 112 mEq/L 98-107 Above high normal Chloride Level CYNDI ([facility]) potassium serum 3.7 mEq/L 3.5-5.1 Potassium Serum ATHE NA ([facility]) carbon dioxide level 17 mEq/L 21-32 Below low normal Carbon Di oxide Level CYNDI ([facility]) anion gap 12 mEq/L 8-16 Anion Gap CYNDI ([facility]) calcium level 8.8 mg/dL 8.5-10.1 Calcium Level ARMSTRONG ( [facility]) ID Date Data Source [id number] 12/11/2020 07:57:00 AM EST ARM[place]ONG ([facility]) Name Value Range Interpretation Code Description Data Claribel rce(s) Supporting Document(s) phosphorus level 1.6 mg/dL 2.5-4.9 Below low normal Phosphorus Le karma CY[facility]I ([facility]) ID Date Data Source [id number] 12/11/2020 07:57:00 AM EST CYNDI ([facility]) Name Value Range Interpretation Code Description Data Claribel rce(s) Supporting Document(s) glucose, fasting 178 mg/dL 70-100 Above high normal Glucose, Fas ting CYNDI ([facility]) creatinine for GFR 1.43 mg/dL 0.55-1.30 Above high normal Creatinine for GFR CYNDI ([facility]) blood urea nitrogen 22 mg/dL 7-18 Above high normal Blood Ure a Nitrogen CYNDI ([facility]) sodium level 141 mEq/L 136-145 Sodium Level CYNDI ([facility]) glomerular filtration rate >60 Below low normal Mariza merular Filtration Rate CYNDI ([facility]) potassium serum 3.7 mEq/L 3.5-5.1 Potassium Serum ATHE NA ([facility]) chloride level 112 mEq/L 98-107 Above high normal Chloride Level CYNDI ([facility]) anion gap 12 mEq/L 8-16 Anion Gap CYNDI ([facility]) carbon dioxide level 17 mEq/L 21-32 Below low normal Carbon Di oxide Level CYNDI ([facility]) calcium level 8.8 mg/dL 8.5-10.1 Calcium Level CYNDI ( [facility]) ID Date Data Source [id number] 12/11/2020 07:56:00 AM EST ARMSTRONG ([facility]) Name Value Range Interpretation Code Description Data Claribel rce(s) Supporting Document(s) venous pH 7.210 units 7.330-7.430 Below low normal Venous pH CYNDI ([facility]) venous partial pressure O2 99.3 mmHg 30.0-50.0 Above high nor mal Venous Partial Pressure O2 CYNDI ([facility]) venous partial pressure CO2 34.6 mmHg 38.0-50.0 Below low nor mal Venous Partial Pressure CO2 CYNDI ([facility]) venous total CO2 14.6 mEq/L 24.0-28.0 Below low normal Venous Total CO2 CY[facility]I ([facility]) venous HCO3 13.5 mEq/L 23.0-27.0 Below low normal Venous HCO3 CY[facility]I ([facility]) venous base excess -2.0-2.0 Below low normal Venous Base Excess CY[facility]I ([facility]) venous standard HCO3 14.2 mEq/L Venous Standard HCO3 CYNDI ([facility]) venous O2 saturation 97.8 % 60.0-80.0 Above high normal Venous O 2 Saturation CYNDI ([facility]) ID Date Data Source [id number] 12/11/2020 07:56:00 AM EST CYNDI ([facility]) Name Value Range Interpretation Code Description Data Claribel rce(s) Supporting Document(s) venous pH 7.210 units 7.330-7.430 Below low normal Venous pH CY[facility]I ([facility]) venous partial pressure CO2 34.6 mmHg 38.0-50.0 Below low nor mal Venous Partial Pressure CO2 CYNDI ([facility]) venous partial pressure O2 99.3 mmHg 30.0-50.0 Above high nor mal Venous Partial Pressure O2 CY[facility]I ([facility]) venous total CO2 14.6 mEq/L 24.0-28.0 Below low normal Venous Total CO2 CY[facility]I ([facility]) venous HCO3 13.5 mEq/L 23.0-27.0 Below low normal Venous HCO3 CY[facility] ([facility]) venous base excess -2.0-2.0 Below low normal Venous Base Excess CY[facility]I ([facility]) venous standard HCO3 14.2 mEq/L Venous Standard HCO3 CY[facility]I ([facility]) venous O2 saturation 97.8 % 60.0-80.0 Above high normal Venous O 2 Saturation ARM[facility] ([facility]) ID Date Data Source [id number] 12/11/2020 07:56:00 AM EST [place]ONG ([facility]) Name Value Range Interpretation Code Description Data Claribel rce(s) Supporting Document(s) venous pH 7.210 units 7.330-7.430 Below low normal Venous pH CY[facility]I ([facility]) venous partial pressure CO2 34.6 mmHg 38.0-50.0 Below low nor mal Venous Partial Pressure CO2 CY[facility]I ([facility]) venous partial pressure O2 99.3 mmHg 30.0-50.0 Above high nor mal Venous Partial Pressure O2 CY[facility] ([facility]) venous total CO2 14.6 mEq/L 24.0-28.0 Below low normal Venous Total CO2 CY[facility]I ([facility]) venous HCO3 13.5 mEq/L 23.0-27.0 Below low normal Venous HCO3 CY[facility]I ([facility]) venous standard HCO3 14.2 mEq/L Venous Standard HCO3 CY[facility]I ([facility]) venous base excess -2.0-2.0 Below low normal Venous Base Excess ARM[facility]ONG ([facility]) venous O2 saturation 97.8 % 60.0-80.0 Above high normal Venous O 2 Saturation CYNDI ([facility]) ID Date Data Source [id number] 12/11/2020 07:56:00 AM LE HANNA ([facility]) Name Value Range Interpretation Code Description Data Claribel rce(s) Supporting Document(s) venous partial pressure CO2 34.6 mmHg 38.0-50.0 Below low nor mal Venous Partial Pressure CO2 CYNDI ([facility]) venous pH 7.210 units 7.330-7.430 Below low normal Venous pH CY[facility]I ([facility]) venous total CO2 14.6 mEq/L 24.0-28.0 Below low normal Venous Total CO2 CY[facility]I ([facility]) venous partial pressure O2 99.3 mmHg 30.0-50.0 Above high nor mal Venous Partial Pressure O2 CYNDI ([facility]) venous HCO3 13.5 mEq/L 23.0-27.0 Below low normal Venous HCO3 CY[facility]I ([facility]) venous base excess -2.0-2.0 Below low normal Venous Base Excess CY[facility]I ([facility]) venous standard HCO3 14.2 mEq/L Venous Standard HCO3 CY[facility]I ([facility]) venous O2 saturation 97.8 % 60.0-80.0 Above high normal Venous O 2 Saturation ARMSTRONG ([facility]) ID Date Data Source [id number] 12/11/2020 07:56:00 AM EST CYNDI ([facility]) Name Value Range Interpretation Code Description Data Claribel rce(s) Supporting Document(s) venous pH 7.210 units 7.330-7.430 Below low normal Venous pH CY[facility]I ([facility]) venous partial pressure O2 99.3 mmHg 30.0-50.0 Above high nor mal Venous Partial Pressure O2 CYNDI ([facility]) venous partial pressure CO2 34.6 mmHg 38.0-50.0 Below low nor mal Venous Partial Pressure CO2 CY[facility]I ([facility]) venous total CO2 14.6 mEq/L 24.0-28.0 Below low normal Venous Total CO2 CY[facility] ([facility]) venous base excess -2.0-2.0 Below low normal Venous Base Excess CY[facility]I ([facility]) venous HCO3 13.5 mEq/L 23.0-27.0 Below low normal Venous HCO3 CY[facility]I ([facility]) venous standard HCO3 14.2 mEq/L Venous Standard HCO3 CY[facility]I ([facility]) venous O2 saturation 97.8 % 60.0-80.0 Above high normal Venous O 2 Saturation CYNDI ([facility]) ID Date Data Source [id number] 12/11/2020 07:56:00 AM EST ARMSTRONG ([facility]) Name Value Range Interpretation Code Description Data Claribel rce(s) Supporting Document(s) venous pH 7.210 units 7.330-7.430 Below low normal Venous pH CYNDI ([facility]) venous partial pressure O2 99.3 mmHg 30.0-50.0 Above high nor mal Venous Partial Pressure O2 CYNDI ([facility]) venous partial pressure CO2 34.6 mmHg 38.0-50.0 Below low nor mal Venous Partial Pressure CO2 CYNDI ([facility]) venous total CO2 14.6 mEq/L 24.0-28.0 Below low normal Venous Total CO2 CY[facility]I ([facility]) venous base excess -2.0-2.0 Below low normal Venous Base Excess CY[facility]I ([facility]) venous HCO3 13.5 mEq/L 23.0-27.0 Below low normal Venous HCO3 CY[facility]I ([facility]) venous O2 saturation 97.8 % 60.0-80.0 Above high normal Venous O 2 Saturation CYNDI ([facility]) venous standard HCO3 14.2 mEq/L Venous Standard HCO3 CY[facility]I ([facility]) ID Date Data Source [id number] 12/11/2020 07:13:00 AM EST CYNDI ([facility]) Name Value Range Interpretation Code Description Data Claribel rce(s) Supporting Document(s) bedside glucose 168 mg/dL 70-105 Above high normal Bedside Gluco se CYNDI ([facility]) ID Date Data Source [id number] 12/11/2020 07:13:00 AM EST CYNDI ([facility]) Name Value Range Interpretation Code Description Data Claribel rce(s) Supporting Document(s) bedside glucose 168 mg/dL 70-105 Above high normal Bedside Gluco se CYNDI ([facility]) ID Date Data Source [id number] 12/11/2020 07:13:00 AM EST CYNDI ([facility]) Name Value Range Interpretation Code Description Data Claribel rce(s) Supporting Document(s) bedside glucose 168 mg/dL 70-105 Above high normal Bedside Gluco se CYNDI ([facility]) ID Date Data Source [id number] 12/11/2020 07:13:00 AM EST CYNDI ([facility]) Name Value Range Interpretation Code Description Data Claribel rce(s) Supporting Document(s) bedside glucose 168 mg/dL 70-105 Above high normal Bedside Gluco se CYNDI ([facility]) ID Date Data Source [id number] 12/11/2020 07:13:00 AM EST CYNDI ([facility]) Name Value Range Interpretation Code Description Data Claribel rce(s) Supporting Document(s) bedside glucose 168 mg/dL 70-105 Above high normal Bedside Gluco se CYNDI ([facility]) ID Date Data Source [id number] 12/11/2020 07:13:00 AM EST CYNDI ([facility]) Name Value Range Interpretation Code Description Data Claribel rce(s) Supporting Document(s) bedside glucose 168 mg/dL 70-105 Above high normal Bedside Gluco se CYNDI [facility]) ID Date Data Source [id number] 12/11/2020 06:29:00 AM EST [facility]) Name Value Range Interpretation Code Description Data Claribel rce(s) Supporting Document(s) bedside glucose 172 mg/dL 70-105 Above high normal Bedside Gluco se CYNDI ([facility]) ID Date Data Source [id number] 12/11/2020 06:29:00 AM EST YCNDI ([facility]) Name Value Range Interpretation Code Description Data Claribel rce(s) Supporting Document(s) bedside glucose 172 mg/dL 70-105 Above high normal Bedside Gluco se CYNDI ([facility]) ID Date Data Source [id number] 12/11/2020 06:29:00 AM EST CYNDI ([facility]) Name Value Range Interpretation Code Description Data Claribel rce(s) Supporting Document(s) bedside glucose 172 mg/dL 70-105 Above high normal Bedside Gluco se [facility]) ID Date Data Source [id number] 12/11/2020 06:29:00 AM EST [facility]) Name Value Range Interpretation Code Description Data Claribel rce(s) Supporting Document(s) bedside glucose 172 mg/dL 70-105 Above high normal Bedside Gluco se [facility]) ID Date Data Source [id number] 12/11/2020 06:29:00 AM EST CYNDI ([facility]) Name Value Range Interpretation Code Description Data Claribel rce(s) Supporting Document(s) bedside glucose 172 mg/dL 70-105 Above high normal [facility] Data Source [id number] 12/11/2020 06:29:00 AM EST CYNDI [facility]) Name Value Range Interpretation Code Description Data Claribel rce(s) Supporting Document(s) bedside glucose 172 mg/dL 70-105 Above high normal Bedside Gluco se CYNDI ([facility]) ID Date Data Source [id number] 12/11/2020 06:26:00 AM EST CYNDI ([facility]) Name Value Range Interpretation Code Description Data Claribel rce(s) Supporting Document(s) bedside glucose 116 mg/dL 70-105 Above high normal Bedside Gluco se CYNDI ([facility]) ID Date Data Source [id number] 12/11/2020 06:26:00 AM EST CYNDI ([facility]) Name Value Range Interpretation Code Description Data Claribel rce(s) Supporting Document(s) bedside glucose 116 mg/dL 70-105 Above high normal Bedside Gluco se CYNDI ([facility]) ID Date Data Source [id number] 12/11/2020 06:26:00 AM EST CYNDI ([facility]) Name Value Range Interpretation Code Description Data Claribel rce(s) Supporting Document(s) bedside glucose 116 mg/dL 70-105 Above high normal Bedside Gluco se CYNDI ([facility]) ID Date Data Source [id number] 12/11/2020 06:26:00 AM EST CYNDI ([facility]) Name Value Range Interpretation Code Description Data Claribel rce(s) Supporting Document(s) bedside glucose 116 mg/dL 70-105 Above high normal Bedside Gluco se CYNDI ([facility]) ID Date Data Source [id number] 12/11/2020 06:26:00 AM EST CYNDI ([facility]) Name Value Range Interpretation Code Description Data Claribel rce(s) Supporting Document(s) bedside glucose 116 mg/dL 70-105 Above high normal Bedside Gluco se CYNDI ([facility]) ID Date Data Source [id number] 12/11/2020 06:26:00 AM EST CYNDI ([facility]) Name Value Range Interpretation Code Description Data Claribel rce(s) Supporting Document(s) bedside glucose 116 mg/dL 70-105 Above high normal Bedside Gluco se CYNDI ([facility]) ID Date Data Source [id number] 12/11/2020 06:00:00 AM EST CYNDI ([facility]) Name Value Range Interpretation Code Description Data Claribel rce(s) Supporting Document(s) white blood count 7.7 10 4.0-10.0 White Blood Count CYNDI ([facility]) red blood count 3.91 10 4.00-5.40 Below low normal Red Blood Coun t ARMSTRONG ([facility]) hemoglobin 11.4 g/dL 12.0-15.5 Below low normal Hemoglobin ARMSTRONG ( [facility]) hematocrit 34.1 % 36.0-47.0 Below low normal Hematocrit ARMSTRONG ( [facility]) mean corpuscular volume 87.2 fL 80.0-96.0 Mean Corpusc ular Volume CYNDI ([facility]) mean corpuscular HGB conc 33.4 g/dL 32.0-36.5 Mean Corpu scular HGB Conc ARMSTRONG ([facility]) mean corpuscular hemoglobin 29.2 pg 27.0-33.0 Mean Cor puscular Hemoglobin CYNDI ([facility]) red cell distribution width 13.3 % 11.5-14.5 Red Cell Distribution Width CY[facility]I ([facility]) nucleated red blood cell % 0.0 % 0-0 Nucleated Red Blood Cell % CYNDI ([facility]) platelet count, automated 229 10 150-450 Platelet C ount, Automated CYNDI ([facility]) ID Date Data Source [id number] 12/11/2020 06:00:00 AM EST CYNDI ([facility]) Name Value Range Interpretation Code Description Data Claribel rce(s) Supporting Document(s) white blood count 7.7 10 4.0-10.0 White Blood Count CY[facility]I ([facility]) hemoglobin 11.4 g/dL 12.0-15.5 Below low normal Hemoglobin CYNDI ( [facility]) red blood count 3.91 10 4.00-5.40 Below low normal Red Blood Coun t CYNDI ([facility]) hematocrit 34.1 % 36.0-47.0 Below low normal Hematocrit CYNDI ( [facility]) mean corpuscular volume 87.2 fL 80.0-96.0 Mean Corpusc ular Volume CYNDI ([facility]) mean corpuscular hemoglobin 29.2 pg 27.0-33.0 Mean Cor puscular Hemoglobin CYNDI ([facility]) mean corpuscular HGB conc 33.4 g/dL 32.0-36.5 Mean Corpu scular HGB Conc ARMSTRONG ([facility]) red cell distribution width 13.3 % 11.5-14.5 Red Cell Distribution Width [facility]ONG ([facility]) platelet count, automated 229 10 150-450 Platelet C ount, Automated CYNDI ([facility]) nucleated red blood cell % 0.0 % 0-0 Nucleated Red Blood Cell % [facility]ONG ([facility]) ID Date Data Source [id number] 12/11/2020 06:00:00 AM EST ARMSTRONG ([facility]) Name Value Range Interpretation Code Description Data Claribel rce(s) Supporting Document(s) red blood count 3.91 10 4.00-5.40 Below low normal Red Blood Coun t CYNDI ([facility]) white blood count 7.7 10 4.0-10.0 White Blood Count CY[facility]I ([facility]) hemoglobin 11.4 g/dL 12.0-15.5 Below low normal Hemoglobin CYNDI ( [facility]) hematocrit 34.1 % 36.0-47.0 Below low normal Hematocrit CYNDI ( [facility]) mean corpuscular volume 87.2 fL 80.0-96.0 Mean Corpusc ular Volume CYNDI ([facility]) mean corpuscular HGB conc 33.4 g/dL 32.0-36.5 Mean Corpu scular HGB Conc CY[facility]I ([facility]) mean corpuscular hemoglobin 29.2 pg 27.0-33.0 Mean Cor puscular Hemoglobin CY[facility]I ([facility]) platelet count, automated 229 10 150-450 Platelet C ount, Automated [facility]I ([facility]) red cell distribution width 13.3 % 11.5-14.5 Red Cell Distribution Width [facility]I ([facility]) nucleated red blood cell % 0.0 % 0-0 Nucleated Red Blood Cell % [facility]I ([facility]) ID Date Data Source [id number] 12/11/2020 06:00:00 AM EST ARMSTRONG ([facility]) Name Value Range Interpretation Code Description Data Claribel rce(s) Supporting Document(s) white blood count 7.7 10 4.0-10.0 White Blood Count [facility]ONG ([facility]) red blood count 3.91 10 4.00-5.40 Below low normal Red Blood Coun t ARMSTRONG ([facility]) hemoglobin 11.4 g/dL 12.0-15.5 Below low normal Hemoglobin ARMSTRONG ( [facility]) hematocrit 34.1 % 36.0-47.0 Below low normal Hematocrit ARM[facility]ONG ( [facility]) mean corpuscular volume 87.2 fL 80.0-96.0 Mean Corpusc ular Volume CYNDI ([facility]) mean corpuscular hemoglobin 29.2 pg 27.0-33.0 Mean Cor puscular Hemoglobin CY[facility]I ([facility]) mean corpuscular HGB conc 33.4 g/dL 32.0-36.5 Mean Corpu scular HGB Conc CY[facility]I ([facility]) platelet count, automated 229 10 150-450 Platelet C ount, Automated [facility] ([facility]) red cell distribution width 13.3 % 11.5-14.5 Red Cell Distribution Width [facility]I ([facility]) nucleated red blood cell % 0.0 % 0-0 Nucleated Red Blood Cell % [facility]I ([facility]) ID Date Data Source [id number] 12/11/2020 06:00:00 AM EST CYNDI ([facility]) Name Value Range Interpretation Code Description Data Claribel rce(s) Supporting Document(s) white blood count 7.7 10 4.0-10.0 White Blood Count [facility]I ([facility]) red blood count 3.91 10 4.00-5.40 Below low normal Red Blood Coun t CY[facility]I ([facility]) hemoglobin 11.4 g/dL 12.0-15.5 Below low normal Hemoglobin CYNDI ( [facility]) hematocrit 34.1 % 36.0-47.0 Below low normal Hematocrit ARMSTRONG ( [facility]) mean corpuscular volume 87.2 fL 80.0-96.0 Mean Corpusc ular Volume ARM[facility]ONG ([facility]) mean corpuscular hemoglobin 29.2 pg 27.0-33.0 Mean Cor puscular Hemoglobin ARM[facility]ONG ([facility]) mean corpuscular HGB conc 33.4 g/dL 32.0-36.5 Mean Corpu scular HGB Conc ARM[facility]ONG ([facility]) red cell distribution width 13.3 % 11.5-14.5 Red Cell Distribution Width [facility] [facility]) platelet count, automated 229 10 150-450 Platelet C ount, Automated CYNDI ([facility]) nucleated red blood cell % 0.0 % 0-0 Nucleated Red Blood Cell % ARMSTRONG ([facility]) ID Date Data Source [id number] 12/11/2020 06:00:00 AM EST CYNDI ([facility]) Name Value Range Interpretation Code Description Data Claribel rce(s) Supporting Document(s) white blood count 7.7 10 4.0-10.0 White Blood Count CYNDI ([facility]) red blood count 3.91 10 4.00-5.40 Below low normal Red Blood Coun t CYNDI ([facility]) hemoglobin 11.4 g/dL 12.0-15.5 Below low normal Hemoglobin CYNDI ( [facility]) mean corpuscular volume 87.2 fL 80.0-96.0 Mean Corpusc ular Volume CYNDI ([facility]) hematocrit 34.1 % 36.0-47.0 Below low normal Hematocrit CYNDI ( [facility]) mean corpuscular hemoglobin 29.2 pg 27.0-33.0 Mean Cor puscular Hemoglobin ARMSTRONG ([facility]) mean corpuscular HGB conc 33.4 g/dL 32.0-36.5 Mean Corpu scular HGB Conc CYNID ([facility]) red cell distribution width 13.3 % 11.5-14.5 Red Cell Distribution Width CYNDI ([facility]) platelet count, automated 229 10 150-450 Platelet C ount, Automated CYNDI ([facility]) nucleated red blood cell % 0.0 % 0-0 Nucleated Red Blood Cell % ARMSTRONG ([facility]) ID Date Data Source [id number] 12/11/2020 05:26:00 AM EST ARMSTRONG ([facility]) Name Value Range Interpretation Code Description Data Claribel rce(s) Supporting Document(s) bedside glucose 208 mg/dL 70-105 Above high normal Bedside Gluco se [facility]) ID Date Data Source [id number] 12/11/2020 05:26:00 AM EST CYNDI ([facility]) Name Value Range Interpretation Code Description Data Claribel rce(s) Supporting Document(s) bedside glucose 208 mg/dL 70-105 Above high normal Bedside Gluco se ARMSTRONG ([facility]) ID Date Data Source [id number] 12/11/2020 05:26:[facility] Name Value Range Interpretation Code Description Data Claribel rce(s) Supporting Document(s) bedside glucose 208 mg/dL 70-105 Above high normal Bedside Gluco se ARMSTRONG ([facility]) ID Date Data Source [id number] 12/11/2020 05:26:00 AM EST CYNDI ([facility]) Name Value Range Interpretation Code Description Data Claribel rce(s) Supporting Document(s) bedside glucose 208 mg/dL 70-105 Above high normal Bedside Gluco se CYNDI ([facility]) ID Date Data Source [id number] 12/11/2020 05:26:00 AM EST CYNDI ([facility]) Name Value Range Interpretation Code Description Data Claribel rce(s) Supporting Document(s) bedside glucose 208 mg/dL 70-105 Above high normal Bedside Gluco se CYNDI ([facility]) ID Date Data Source [id number] 12/11/2020 05:26:00 AM EST CYNDI [facility]) Name Value Range Interpretation Code Description Data Claribel rce(s) Supporting Document(s) bedside glucose 208 mg/dL 70-105 Above high normal Bedside Gluco se CYNDI ([facility]) ID Date Data Source [id number] 12/11/2020 03:55:00 AM EST CYNDI [facility]) Name Value Range Interpretation Code Description Data Claribel rce(s) Supporting Document(s) osmolality serum 310 mOsm/kg 275-295 Above high normal Osmolality Serum ARMSTRONG ([facility]) ID Date Data Source [id number] 12/11/2020 03:55:00 AM EST CYNDI ([facility]) Name Value Range Interpretation Code Description Data Claribel rce(s) Supporting Document(s) phosphorus level 1.5 mg/dL 2.5-4.9 Below low normal Phosphorus Le karma CYNDI ([facility]) ID Date Data Source [id number] 12/11/2020 03:55:00 AM EST CYNDI [facility]) Name Value Range Interpretation Code Description Data Claribel rce(s) Supporting Document(s) glucose, fasting 224 mg/dL 70-100 Above high normal Glucose, Fas ting CYNDI ([facility]) blood urea nitrogen 23 mg/dL 7-18 Above high normal Blood Ure a Nitrogen CYNDI ([facility]) creatinine for GFR 1.55 mg/dL 0.55-1.30 Above high normal Creatinine for GFR CYNDI ([facility]) glomerular filtration rate >60 Below low normal Mariza merular Filtration Rate CYNDI ([facility]) sodium level 141 mEq/L 136-145 Sodium Level CYNDI ([facility]) potassium serum 4.0 mEq/L 3.5-5.1 Potassium Serum ATHE NA ([facility]) chloride level 112 mEq/L 98-107 Above high normal Chloride Level ARMSTRONG ([facility]) carbon dioxide level 13 mEq/L 21-32 Below low normal Carbon Di oxide Level ARMSTRONG ([facility]) anion gap 16 mEq/L 8-16 Anion Gap CYNDI ([facility]) calcium level 8.8 mg/dL 8.5-10.1 Calcium Level CYNDI ( [facility]) ID Date Data Source [id number] 12/11/2020 03:55:00 AM EST ARMSTRONG ([facility]) Name Value Range Interpretation Code Description Data Claribel rce(s) Supporting Document(s) venous pH 7.221 units 7.330-7.430 Below low normal Venous pH ARMSTRONG ([facility]) venous partial pressure CO2 30.1 mmHg 38.0-50.0 Below low nor mal Venous Partial Pressure CO2 CYNDI ([facility]) venous partial pressure O2 74.2 mmHg 30.0-50.0 Above high nor mal Venous Partial Pressure O2 CYNDI ([facility]) venous total CO2 13.0 mEq/L 24.0-28.0 Below low normal Venous Total CO2 CYNDI ([facility]) venous HCO3 12.1 mEq/L 23.0-27.0 Below low normal Venous HCO3 CYNDI ([facility]) venous base excess -2.0-2.0 Below low normal Venous Base Excess CYNDI ([facility]) venous standard HCO3 13.5 mEq/L Venous Standard HCO3 CYNDI ([facility]) venous O2 saturation 94.9 % 60.0-80.0 Above high normal Venous O 2 Saturation CYNDI ([facility]) ID Date Data Source [id number] 12/11/2020 03:55:00 AM EST CYNDI ([facility]) Name Value Range Interpretation Code Description Data Claribel rce(s) Supporting Document(s) osmolality serum 310 mOsm/kg 275-295 Above high normal Osmolality Serum CYNDI ([facility]) ID Date Data Source [id number] 12/11/2020 03:55:00 AM EST CYNDI ([facility]) Name Value Range Interpretation Code Description Data Claribel rce(s) Supporting Document(s) phosphorus level 1.5 mg/dL 2.5-4.9 Below low normal Phosphorus Le karma CYNDI ([facility]) ID Date Data Source [id number] 12/11/2020 03:55:00 AM EST CYNDI ([facility]) Name Value Range Interpretation Code Description Data Claribel rce(s) Supporting Document(s) blood urea nitrogen 23 mg/dL 7-18 Above high normal Blood Ure a Nitrogen CYNDI ([facility]) glucose, fasting 224 mg/dL 70-100 Above high normal Glucose, Fas ting CYNDI ([facility]) creatinine for GFR 1.55 mg/dL 0.55-1.30 Above high normal Creatinine for GFR CYNDI ([facility]) sodium level 141 mEq/L 136-145 Sodium Level CYNDI ([facility]) glomerular filtration rate >60 Below low normal Mariza merular Filtration Rate CYNDI ([facility]) chloride level 112 mEq/L 98-107 Above high normal Chloride Level CYNDI ([facility]) potassium serum 4.0 mEq/L 3.5-5.1 Potassium Serum ATHE NA ([facility]) carbon dioxide level 13 mEq/L 21-32 Below low normal Carbon Di oxide Level ARMSTRONG ([facility]) calcium level 8.8 mg/dL 8.5-10.1 Calcium Level CYNDI ( [facility]) anion gap 16 mEq/L 8-16 Anion Gap CYNDI ([facility]) ID Date Data Source [id number] 12/11/2020 03:55:00 AM EST CYNDI ([facility]) Name Value Range Interpretation Code Description Data Claribel rce(s) Supporting Document(s) venous pH 7.221 units 7.330-7.430 Below low normal Venous pH CYNDI ([facility]) venous partial pressure CO2 30.1 mmHg 38.0-50.0 Below low nor mal Venous Partial Pressure CO2 CYNDI ([facility]) venous total CO2 13.0 mEq/L 24.0-28.0 Below low normal Venous Total CO2 ARMSTRONG ([facility]) venous partial pressure O2 74.2 mmHg 30.0-50.0 Above high nor mal Venous Partial Pressure O2 CYNDI ([facility]) venous HCO3 12.1 mEq/L 23.0-27.0 Below low normal Venous HCO3 CYNDI ([facility]) venous standard HCO3 13.5 mEq/L Venous Standard HCO3 CYNDI ([facility]) venous base excess -2.0-2.0 Below low normal Venous Base Excess ARMSTRONG ([facility]) venous O2 saturation 94.9 % 60.0-80.0 Above high normal Venous O 2 Saturation ARMSTRONG ([facility]) ID Date Data Source [id number] 12/11/2020 03:55:00 AM EST CYNDI ([facility]) Name Value Range Interpretation Code Description Data Claribel rce(s) Supporting Document(s) osmolality serum 310 mOsm/kg 275-295 Above high normal Osmolality Serum ARMSTRONG ([facility]) ID Date Data Source [id number] 12/11/2020 03:55:00 AM EST CYNDI ([facility]) Name Value Range Interpretation Code Description Data Claribel rce(s) Supporting Document(s) phosphorus level 1.5 mg/dL 2.5-4.9 Below low normal Phosphorus Le karma CYNDI ([facility]) ID Date Data Source [id number] 12/11/2020 03:55:00 AM LE HANNA ([facility]) Name Value Range Interpretation Code Description Data Claribel rce(s) Supporting Document(s) glucose, fasting 224 mg/dL 70-100 Above high normal Glucose, Fas ting CYNDI ([facility]) blood urea nitrogen 23 mg/dL 7-18 Above high normal Blood Ure a Nitrogen CYNDI ([facility]) creatinine for GFR 1.55 mg/dL 0.55-1.30 Above high normal Creatinine for GFR CYNDI ([facility]) glomerular filtration rate >60 Below low normal Mariza merular Filtration Rate ARMSTRONG ([facility]) potassium serum 4.0 mEq/L 3.5-5.1 Potassium Serum ATHE NA ([facility]) sodium level 141 mEq/L 136-145 Sodium Level CYNDI ([facility]) chloride level 112 mEq/L 98-107 Above high normal Chloride Level CYNDI ([facility]) anion gap 16 mEq/L 8-16 Anion Gap CYNDI ([facility]) carbon dioxide level 13 mEq/L 21-32 Below low normal Carbon Di oxide Level ARMSTRONG ([facility]) calcium level 8.8 mg/dL 8.5-10.1 Calcium Level ARMSTRONG ( [facility]) ID Date Data Source [id number] 12/11/2020 03:55:00 AM EST CYNDI ([facility]) Name Value Range Interpretation Code Description Data Claribel rce(s) Supporting Document(s) venous pH 7.221 units 7.330-7.430 Below low normal Venous pH CYNDI ([facility]) venous partial pressure O2 74.2 mmHg 30.0-50.0 Above high nor mal Venous Partial Pressure O2 CYNDI ([facility]) venous partial pressure CO2 30.1 mmHg 38.0-50.0 Below low nor mal Venous Partial Pressure CO2 CYNDI ([facility]) venous HCO3 12.1 mEq/L 23.0-27.0 Below low normal Venous HCO3 CYNDI ([facility]) venous total CO2 13.0 mEq/L 24.0-28.0 Below low normal Venous Total CO2 CNYDI ([facility]) venous base excess -2.0-2.0 Below low normal Venous Base Excess CYNDI ([facility]) venous standard HCO3 13.5 mEq/L Venous Standard HCO3 CYNDI ([facility]) venous O2 saturation 94.9 % 60.0-80.0 Above high normal Venous O 2 Saturation ARMSTRONG ([facility]) ID Date Data Source [id number] 12/11/2020 03:55:00 AM EST CYNDI ([facility]) Name Value Range Interpretation Code Description Data Claribel rce(s) Supporting Document(s) osmolality serum 310 mOsm/kg 275-295 Above high normal Osmolality Serum ARMSTRONG ([facility]) ID Date Data Source [id number] 12/11/2020 03:55:00 AM EST CYNDI ([facility]) Name Value Range Interpretation Code Description Data Claribel rce(s) Supporting Document(s) phosphorus level 1.5 mg/dL 2.5-4.9 Below low normal Phosphorus Le karma CYNDI ([facility]) ID Date Data Source [id number] 12/11/2020 03:55:00 AM EST CYNDI ([facility]) Name Value Range Interpretation Code Description Data Claribel rce(s) Supporting Document(s) glucose, fasting 224 mg/dL 70-100 Above high normal Glucose, Fas ting CYNDI ([facility]) blood urea nitrogen 23 mg/dL 7-18 Above high normal Blood Ure a Nitrogen CYNDI ([facility]) glomerular filtration rate >60 Below low normal Mariza merular Filtration Rate CYNDI ([facility]) creatinine for GFR 1.55 mg/dL 0.55-1.30 Above high normal Creatinine for GFR CYNDI ([facility]) sodium level 141 mEq/L 136-145 Sodium Level CYNDI ([facility]) potassium serum 4.0 mEq/L 3.5-5.1 Potassium Serum ATHE NA ([facility]) chloride level 112 mEq/L 98-107 Above high normal Chloride Level CYNDI ([facility]) carbon dioxide level 13 mEq/L 21-32 Below low normal Carbon Di oxide Level CYNDI ([facility]) anion gap 16 mEq/L 8-16 Anion Gap CYNDI ([facility]) calcium level 8.8 mg/dL 8.5-10.1 Calcium Level CYNDI ( [facility]) ID Date Data Source [id number] 12/11/2020 03:55:00 AM EST ARMSTRONG ([facility]) Name Value Range Interpretation Code Description Data Claribel rce(s) Supporting Document(s) venous pH 7.221 units 7.330-7.430 Below low normal Venous pH CYNDI ([facility]) venous partial pressure CO2 30.1 mmHg 38.0-50.0 Below low nor mal Venous Partial Pressure CO2 CYNDI ([facility]) venous partial pressure O2 74.2 mmHg 30.0-50.0 Above high nor mal Venous Partial Pressure O2 CYNDI ([facility]) venous total CO2 13.0 mEq/L 24.0-28.0 Below low normal Venous Total CO2 CYNDI ([facility]) venous HCO3 12.1 mEq/L 23.0-27.0 Below low normal Venous HCO3 CYNDI ([facility]) venous base excess -2.0-2.0 Below low normal Venous Base Excess CYNDI ([facility]) venous standard HCO3 13.5 mEq/L Venous Standard HCO3 CYNDI ([facility]) venous O2 saturation 94.9 % 60.0-80.0 Above high normal [facility] Date Data Source [id number] 12/11/2020 03:55:00 AM EST ARMSTRONG ([facility]) Name Value Range Interpretation Code Description Data Claribel rce(s) Supporting Document(s) osmolality serum 310 mOsm/kg 275-295 Above high normal Osmolality Serum CYNDI ([facility]) ID Date Data Source [id number] 12/11/2020 03:55:00 AM EST CYNDI ([facility]) Name Value Range Interpretation Code Description Data Claribel rce(s) Supporting Document(s) phosphorus level 1.5 mg/dL 2.5-4.9 Below low normal Phosphorus Le karma CYNDI ([facility]) ID Date Data Source [id number] 12/11/2020 03:55:00 AM EST CYNDI ([facility]) Name Value Range Interpretation Code Description Data Claribel rce(s) Supporting Document(s) glucose, fasting 224 mg/dL 70-100 Above high normal Glucose, Fas ting CYNDI ([facility]) blood urea nitrogen 23 mg/dL 7-18 Above high normal Blood Ure a Nitrogen CYNDI ([facility]) creatinine for GFR 1.55 mg/dL 0.55-1.30 Above high normal Creatinine for GFR CYNDI ([facility]) glomerular filtration rate >60 Below low normal Mariza merular Filtration Rate CYNDI ([facility]) sodium level 141 mEq/L 136-145 Sodium Level CY[facility]I ([facility]) potassium serum 4.0 mEq/L 3.5-5.1 Potassium Serum ATHE NA ([facility]) carbon dioxide level 13 mEq/L 21-32 Below low normal Carbon Di oxide Level CYNDI ([facility]) chloride level 112 mEq/L 98-107 Above high normal Chloride Level CYNDI ([facility]) anion gap 16 mEq/L 8-16 Anion Gap CYNDI ([facility]) calcium level 8.8 mg/dL 8.5-10.1 Calcium Level CYNDI ( [facility]) ID Date Data Source [id number] 12/11/2020 03:55:00 AM EST CYNDI ([facility]) Name Value Range Interpretation Code Description Data Claribel rce(s) Supporting Document(s) venous pH 7.221 units 7.330-7.430 Below low normal Venous pH CYNDI ([facility]) venous partial pressure CO2 30.1 mmHg 38.0-50.0 Below low nor mal Venous Partial Pressure CO2 CYNDI ([facility]) venous total CO2 13.0 mEq/L 24.0-28.0 Below low normal Venous Total CO2 CYNDI ([facility]) venous partial pressure O2 74.2 mmHg 30.0-50.0 Above high nor mal Venous Partial Pressure O2 CYNDI ([facility]) venous HCO3 12.1 mEq/L 23.0-27.0 Below low normal Venous HCO3 CYNDI ([facility]) venous base excess -2.0-2.0 Below low normal Venous Base Excess ARMSTRONG ([facility]) venous standard HCO3 13.5 mEq/L Venous Standard HCO3 ARMSTRONG ([facility]) venous O2 saturation 94.9 % 60.0-80.0 Above high normal Venous O 2 Saturation ARMSTRONG ([facility]) ID Date Data Source [id number] 12/11/2020 03:55:00 AM EST ARMSTRONG ([facility]) Name Value Range Interpretation Code Description Data Claribel rce(s) Supporting Document(s) osmolality serum 310 mOsm/kg 275-295 Above high normal Osmolality Serum [facility]) ID Date Data Source [id number] 12/11/2020 03:55:00 AM EST [facility]) Name Value Range Interpretation Code Description Data Claribel rce(s) Supporting Document(s) phosphorus level 1.5 mg/dL 2.5-4.9 Below low normal Phosphorus Le karma CYNDI ([facility]) ID Date Data Source [id number] 12/11/2020 03:55:00 AM EST CYNDI ([facility]) Name Value Range Interpretation Code Description Data Claribel rce(s) Supporting Document(s) glucose, fasting 224 mg/dL 70-100 Above high normal Glucose, Fas ting CYNDI ([facility]) blood urea nitrogen 23 mg/dL 7-18 Above high normal Blood Ure a Nitrogen CYNDI ([facility]) creatinine for GFR 1.55 mg/dL 0.55-1.30 Above high normal Creatinine for GFR CYNDI ([facility]) sodium level 141 mEq/L 136-145 Sodium Level CYNDI ([facility]) glomerular filtration rate >60 Below low normal Mariza merular Filtration Rate CYNDI ([facility]) potassium serum 4.0 mEq/L 3.5-5.1 Potassium Serum ATHE NA ([facility]) carbon dioxide level 13 mEq/L 21-32 Below low normal Carbon Di oxide Level CYNDI ([facility]) chloride level 112 mEq/L 98-107 Above high normal Chloride Level CYNDI ([facility]) anion gap 16 mEq/L 8-16 Anion Gap CYNDI ([facility]) calcium level 8.8 mg/dL 8.5-10.1 Calcium Level ARMSTRONG ( [facility]) ID Date Data Source [id number] 12/11/2020 03:55:00 AM EST ARMSTRONG ([facility]) Name Value Range Interpretation Code Description Data Claribel rce(s) Supporting Document(s) venous pH 7.221 units 7.330-7.430 Below low normal Venous pH ARMSTRONG ([facility]) venous partial pressure CO2 30.1 mmHg 38.0-50.0 Below low nor mal Venous Partial Pressure CO2 ARMSTRONG ([facility]) venous partial pressure O2 74.2 mmHg 30.0-50.0 Above high nor mal Venous Partial Pressure O2 CYNDI ([facility]) venous total CO2 13.0 mEq/L 24.0-28.0 Below low normal Venous Total CO2 CYNDI ([facility]) venous HCO3 12.1 mEq/L 23.0-27.0 Below low normal Venous HCO3 CYNDI ([facility]) venous base excess -2.0-2.0 Below low normal Venous Base Excess CYNDI ([facility]) venous standard HCO3 13.5 mEq/L Venous Standard HCO3 CYNDI ([facility]) venous O2 saturation 94.9 % 60.0-80.0 Above high normal Venous O 2 Saturation ARMSTRONG ([facility]) ID Date Data Source [id number] 12/11/2020 03:50:00 AM EST CYNDI ([facility]) Name Value Range Interpretation Code Description Data Claribel rce(s) Supporting Document(s) bedside glucose 218 mg/dL 70-105 Above high normal Bedside Gluco se CYNDI ([facility]) ID Date Data Source [id number] 12/11/2020 03:50:00 AM EST ARMSTRONG ([facility]) Name Value Range Interpretation Code Description Data Claribel rce(s) Supporting Document(s) bedside glucose 218 mg/dL 70-105 Above high normal Bedside Gluco se [facility]) ID Date Data Source [id number] 12/11/2020 03:50:00 AM EST [facility]) Name Value Range Interpretation Code Description Data Claribel rce(s) Supporting Document(s) bedside glucose 218 mg/dL 70-105 Above high normal Bedside Gluco se [facility]) ID Date Data Source [id number] 12/11/2020 03:50:00 [facility] Name Value Range Interpretation Code Description Data Claribel rce(s) Supporting Document(s) bedside glucose 218 mg/dL 70-105 Above high normal Bedside Gluco se CYNDI ([facility]) ID Date Data Source [id number] 12/11/2020 03:50:00 AM EST [facility] Name Value Range Interpretation Code Description Data Claribel rce(s) Supporting Document(s) bedside glucose 218 mg/dL 70-105 Above high normal Bedside Gluco se [facility] ID Date Data Source [id number] 12/11/2020 03:50:00 AM EST [facility] ([facility]) Name Value Range Interpretation Code Description Data Claribel rce(s) Supporting Document(s) bedside glucose 218 mg/dL 70-105 Above high normal Bedside Gluco se [facility] ([facility]) ID Date Data Source [id number] 12/11/2020 03:02:00 AM EST CY[facility] ([facility]) Name Value Range Interpretation Code Description Data Claribel rce(s) Supporting Document(s) bedside glucose 230 mg/dL 70-105 Above high normal Bedside Gluco se [facility] ([facility]) ID Date Data Source [id number] 12/11/2020 03:02:00 AM EST CY[facility] ([facility]) Name Value Range Interpretation Code Description Data Claribel rce(s) Supporting Document(s) bedside glucose 230 mg/dL 70-105 Above high normal Bedside Gluco se [facility] ([facility]) ID Date Data Source [id number] 12/11/2020 03:02:00 AM EST CYNDI [facility]) Name Value Range Interpretation Code Description Data Claribel rce(s) Supporting Document(s) bedside glucose 230 mg/dL 70-105 Above high normal Bedside Gluco se [facility] ([facility]) ID Date Data Source [id number] 12/11/2020 03:02:00 AM EST CYNDI ([facility]) Name Value Range Interpretation Code Description Data Claribel rce(s) Supporting Document(s) bedside glucose 230 mg/dL 70-105 Above high normal [facility] ID Date Data Source [id number] 12/11/2020 03:02:00 AM EST CYND[facility]) Name Value Range Interpretation Code Description Data Claribel rce(s) Supporting Document(s) bedside glucose 230 mg/dL 70-105 Above high normal Bedside Gluco se [facility] ([facility]) ID Date Data Source [id number] 12/11/2020 03:02:00 AM EST CYND[facility] ([facility]) Name Value Range Interpretation Code Description Data Claribel rce(s) Supporting Document(s) bedside glucose 230 mg/dL 70-105 Above high normal Bedside Gluco se [facility] ([facility]) ID Date Data Source [id number] 12/11/2020 02:11:00 AM EST CYND[facility] ([facility]) Name Value Range Interpretation Code Description Data Claribel rce(s) Supporting Document(s) bedside glucose 211 mg/dL 70-105 Above high normal Bedside Gluco se [facility]) ID Date Data Source [id number] 12/11/2020 02:11:00 AM EST [facility]) Name Value Range Interpretation Code Description Data Claribel rce(s) Supporting Document(s) bedside glucose 211 mg/dL 70-105 Above high normal Bedside Gluco se [facility]) ID Date Data Source [id number] 12/11/2020 02:11:00 AM EST CY[facility] ([facility]) Name Value Range Interpretation Code Description Data Claribel rce(s) Supporting Document(s) bedside glucose 211 mg/dL 70-105 Above high normal Bedside Gluco se [facility] ([facility]) ID Date Data Source [id number] 12/11/2020 02:11:00 AM EST [facility]) Name Value Range Interpretation Code Description Data Claribel rce(s) Supporting Document(s) bedside glucose 211 mg/dL 70-105 Above high normal [facility]side [facility] ID Date Data Source [id number] 12/11/2020 02:11:00 AM EST [facility] ([facility]) Name Value Range Interpretation Code Description Data Claribel rce(s) Supporting Document(s) bedside glucose 211 mg/dL 70-105 Above high normal Bedside Gluco se [facility] ([facility]) ID Date Data Source [id number] 12/11/2020 02:11:00 AM EST [facility] ([facility]) Name Value Range Interpretation Code Description Data Claribel rce(s) Supporting Document(s) bedside glucose 211 mg/dL 70-105 Above high normal Bedside Gluco se [facility] ([facility]) ID Date Data Source [id number] 12/11/2020 01:06:00 AM EST [facility] ([facility]) Name Value Range Interpretation Code Description Data Claribel rce(s) Supporting Document(s) potassium random urine 55.4 mEq/L Potassium Ran dom Urine [facility] ([facility]) ID Date Data Source [id number] 12/11/2020 01:06:00 AM EST [facility] ([facility]) Name Value Range Interpretation Code Description Data Claribel rce(s) Supporting Document(s) sodium,random urine 35 mEq/L Sodium,random Ur ine [facility] ([facility]) ID Date Data Source [id number] 12/11/2020 01:06:00 AM EST CY[facility] ([facility]) Name Value Range Interpretation Code Description Data Claribel rce(s) Supporting Document(s) creatinine,random urine 127.0 mg/dL Creatinine, random Urine [facility] ([facility]) ID Date Data Source [id number] 12/11/2020 01:06:00 AM EST [facility] ([facility]) Name Value Range Interpretation Code Description Data Claribel rce(s) Supporting Document(s) urea nitrogen random urine 622 mg/dL Urea Nitr ogen Random Urine [facility] ([facility]) ID Date Data Source [id number] 12/11/2020 01:06:00 AM EST [facility] ([facility]) Name Value Range Interpretation Code Description Data Claribel rce(s) Supporting Document(s) potassium random urine 55.4 mEq/L Potassium Ran dom Urine [facility] ([facility]) ID Date Data Source [id number] 12/11/2020 01:06:00 AM EST [facility] ([facility]) Name Value Range Interpretation Code Description Data Claribel rce(s) Supporting Document(s) sodium,random urine 35 mEq/L Sodium,random Ur ine [facility] ([facility]) ID Date Data Source [id number] 12/11/2020 01:06:00 AM EST [facility] ([facility]) Name Value Range Interpretation Code Description Data Claribel rce(s) Supporting Document(s) creatinine,random urine 127.0 mg/dL Creatinine, random Urine [facility] ([facility]) ID Date Data Source [id number] 12/11/2020 01:06:00 AM EST [facility] ([facility]) Name Value Range Interpretation Code Description Data Claribel rce(s) Supporting Document(s) urea nitrogen random urine 622 mg/dL Urea Nitr ogen Random Urine [facility] ([facility]) ID Date Data Source [id number] 12/11/2020 01:06:00 AM EST [facility] ([facility]) Name Value Range Interpretation Code Description Data Claribel rce(s) Supporting Document(s) potassium random urine 55.4 mEq/L Potassium Ran dom Urine [facility] ([facility]) ID Date Data Source [id number] 12/11/2020 01:06:00 AM EST [facility] ([facility]) Name Value Range Interpretation Code Description Data Claribel rce(s) Supporting Document(s) sodium,random urine 35 mEq/L Sodium,random Ur ine [facility] ([facility]) ID Date Data Source [id number] 12/11/2020 01:06:00 AM EST [facility] ([facility]) Name Value Range Interpretation Code Description Data Claribel rce(s) Supporting Document(s) creatinine,random urine 127.0 mg/dL Creatinine, random Urine [facility] ([facility]) ID Date Data Source [id number] 12/11/2020 01:06:00 AM EST [facility] ([facility]) Name Value Range Interpretation Code Description Data Claribel rce(s) Supporting Document(s) urea nitrogen random urine 622 mg/dL Urea Nitr ogen Random Urine [facility] ([facility]) ID Date Data Source [id number] 12/11/2020 01:06:00 AM EST [facility] ([facility]) Name Value Range Interpretation Code Description Data Claribel rce(s) Supporting Document(s) potassium random urine 55.4 mEq/L Potassium Ran dom Urine [facility] ([facility]) ID Date Data Source [id number] 12/11/2020 01:06:00 AM EST [facility] ([facility]) Name Value Range Interpretation Code Description Data Claribel rce(s) Supporting Document(s) sodium,random urine 35 mEq/L Sodium,random Ur ine [facility] ([facility]) ID Date Data Source [id number] 12/11/2020 01:06:00 AM EST [facility] ([facility]) Name Value Range Interpretation Code Description Data Claribel rce(s) Supporting Document(s) creatinine,random urine 127.0 mg/dL Creatinine, random Urine [facility] ([facility]) ID Date Data Source [id number] 12/11/2020 01:06:00 AM EST [facility] ([facility]) Name Value Range Interpretation Code Description Data Claribel rce(s) Supporting Document(s) urea nitrogen random urine 622 mg/dL Urea Nitr ogen Random Urine [facility] ([facility]) ID Date Data Source [id number] 12/11/2020 01:06:00 AM EST [facility] ([facility]) Name Value Range Interpretation Code Description Data Claribel rce(s) Supporting Document(s) potassium random urine 55.4 mEq/L Potassium Ran dom Urine [facility] ([facility]) ID Date Data Source [id number] 12/11/2020 01:06:00 AM EST [facility] ([facility]) Name Value Range Interpretation Code Description Data Claribel rce(s) Supporting Document(s) sodium,random urine 35 mEq/L Sodium,random Ur ine [facility] ([facility]) ID Date Data Source [id number] 12/11/2020 01:06:00 AM EST [facility] ([facility]) Name Value Range Interpretation Code Description Data Claribel rce(s) Supporting Document(s) creatinine,random urine 127.0 mg/dL Creatinine, random Urine [facility] ([facility]) ID Date Data Source [id number] 12/11/2020 01:06:00 AM EST [facility] ([facility]) Name Value Range Interpretation Code Description Data Claribel rce(s) Supporting Document(s) urea nitrogen random urine 622 mg/dL Urea Nitr ogen Random Urine [facility] ([facility]) ID Date Data Source [id number] 12/11/2020 01:06:00 AM EST [facility] ([facility]) Name Value Range Interpretation Code Description Data Claribel rce(s) Supporting Document(s) potassium random urine 55.4 mEq/L Potassium Ran dom Urine [facility] ([facility]) ID Date Data Source [id number] 12/11/2020 01:06:00 AM EST [facility] ([facility]) Name Value Range Interpretation Code Description Data Claribel rce(s) Supporting Document(s) sodium,random urine 35 mEq/L Sodium,random Ur ine [facility] ([facility]) ID Date Data Source [id number] 12/11/2020 01:06:00 AM EST [facility] ([facility]) Name Value Range Interpretation Code Description Data Claribel rce(s) Supporting Document(s) creatinine,random urine 127.0 mg/dL Creatinine, random Urine [facility] ([facility]) ID Date Data Source [id number] 12/11/2020 01:06:00 AM EST [facility] ([facility]) Name Value Range Interpretation Code Description Data Claribel rce(s) Supporting Document(s) urea nitrogen random urine 622 mg/dL Urea Nitr ogen Random Urine [facility] ([facility]) ID Date Data Source [id number] 12/11/2020 12:48:00 AM EST CY[facility] ([facility]) Name Value Range Interpretation Code Description Data Claribel rce(s) Supporting Document(s) bedside glucose 135 mg/dL 70-105 Above high normal Bedside Gluco se [facility] ([facility]) ID Date Data Source [id number] 12/11/2020 12:48:00 AM EST [facility] ([facility]) Name Value Range Interpretation Code Description Data Claribel rce(s) Supporting Document(s) bedside glucose 135 mg/dL 70-105 Above high normal Bedside Gluco se [facility] ([facility]) ID Date Data Source [id number] 12/11/2020 12:48:00 AM EST CY[facility] ([facility]) Name Value Range Interpretation Code Description Data Claribel rce(s) Supporting Document(s) bedside glucose 135 mg/dL 70-105 Above high normal Bedside Gluco se [facility] ([facility]) ID Date Data Source [id number] 12/11/2020 12:48:00 AM EST [facility] ([facility]) Name Value Range Interpretation Code Description Data Claribel rce(s) Supporting Document(s) bedside glucose 135 mg/dL 70-105 Above high normal Bedside Gluco se [facility] ([facility]) ID Date Data Source [id number] 12/11/2020 12:48:00 AM EST CY[facility] ([facility]) Name Value Range Interpretation Code Description Data Claribel rce(s) Supporting Document(s) bedside glucose 135 mg/dL 70-105 Above high normal Bedside Gluco se [facility] ([facility]) ID Date Data Source [id number] 12/11/2020 12:48:00 AM EST CYNDI [facility]) Name Value Range Interpretation Code Description Data Claribel rce(s) Supporting Document(s) bedside glucose 135 mg/dL 70-105 Above high normal Bedside Gluco se [facility] ([facility]) ID Date Data Source [id number] 12/11/2020 12:18:00 AM EST CY[facility] ([facility]) Name Value Range Interpretation Code Description Data Claribel rce(s) Supporting Document(s) osmolality serum 311 mOsm/kg 275-295 Above high normal Osmolality Serum [facility]) ID Date Data Source [id number] 12/11/2020 12:18:00 AM EST CY[facility] ([facility]) Name Value Range Interpretation Code Description Data Claribel rce(s) Supporting Document(s) phosphorus level 2.4 mg/dL 2.5-4.9 Below low normal Phosphorus Le karma [facility] ([facility]) ID Date Data Source [id number] 12/11/2020 12:18:00 AM EST [facility] ([facility]) Name Value Range Interpretation Code Description Data Claribel rce(s) Supporting Document(s) glucose, fasting 129 mg/dL 70-100 Above high normal Glucose, Fas ting [facility] ([facility]) blood urea nitrogen 26 mg/dL 7-18 Above high normal Blood Ure a Nitrogen [facility] ([facility]) creatinine for GFR 1.51 mg/dL 0.55-1.30 Above high normal Creatinine for GFR [facility] ([facility]) glomerular filtration rate >60 Below low normal Mariza merular Filtration Rate [facility]I ([facility]) sodium level 142 mEq/L 136-145 Sodium Level [facility] ([facility]) potassium serum 4.4 mEq/L 3.5-5.1 Potassium Serum ATHE NA ([facility]) chloride level 114 mEq/L 98-107 Above high normal Chloride Level [facility] ([facility]) carbon dioxide level 11 mEq/L 21-32 Below low normal Carbon Di oxide Level CY[facility]I ([facility]) anion gap 17 mEq/L 8-16 Above high normal Anion Gap [facility] ([facility]) calcium level 9.4 mg/dL 8.5-10.1 Calcium Level [facility] ( [facility]) ID Date Data Source [id number] 12/11/2020 12:18:00 AM EST [facility] ([facility]) Name Value Range Interpretation Code Description Data Claribel rce(s) Supporting Document(s) venous pH 7.171 units 7.330-7.430 Below low normal Venous pH [facility] ([facility]) venous partial pressure CO2 26.9 mmHg 38.0-50.0 Below low nor mal Venous Partial Pressure CO2 [facility] ([facility]) venous partial pressure O2 98.1 mmHg 30.0-50.0 Above high nor mal Venous Partial Pressure O2 [facility] ([facility]) venous total CO2 10.4 mEq/L 24.0-28.0 Below low normal Venous Total CO2 [facility] ([facility]) venous HCO3 9.6 mEq/L 23.0-27.0 Below low normal Venous HCO3 [facility] ([facility]) venous base excess -2.0-2.0 Below low normal Venous Base Excess [facility] ([facility]) venous standard HCO3 11.7 mEq/L Venous Standard HCO3 [facility] ([facility]) venous O2 saturation 97.6 % 60.0-80.0 Above high normal Venous O 2 Saturation [facility] ([facility]) ID Date Data Source [id number] 12/11/2020 12:18:00 AM EST [facility] ([facility]) Name Value Range Interpretation Code Description Data Claribel rce(s) Supporting Document(s) osmolality serum 311 mOsm/kg 275-295 Above high normal Osmolality Serum [facility] ([facility]) ID Date Data Source [id number] 12/11/2020 12:18:00 AM EST [facility] ([facility]) Name Value Range Interpretation Code Description Data Claribel rce(s) Supporting Document(s) phosphorus level 2.4 mg/dL 2.5-4.9 Below low normal Phosphorus Le karma [facility] ([facility]) ID Date Data Source [id number] 12/11/2020 12:18:00 AM EST [facility] ([facility]) Name Value Range Interpretation Code Description Data Claribel rce(s) Supporting Document(s) glucose, fasting 129 mg/dL 70-100 Above high normal Glucose, Fas ting [facility] ([facility]) blood urea nitrogen 26 mg/dL 7-18 Above high normal Blood Ure a Nitrogen [facility] ([facility]) creatinine for GFR 1.51 mg/dL 0.55-1.30 Above high normal Creatinine for GFR [facility] ([facility]) glomerular filtration rate >60 Below low normal Mariza merular Filtration Rate CY[facility]I ([facility]) potassium serum 4.4 mEq/L 3.5-5.1 Potassium Serum ATHE NA ([facility]) sodium level 142 mEq/L 136-145 Sodium Level CYNDI ([facility]) chloride level 114 mEq/L 98-107 Above high normal Chloride Level [facility] ([facility]) carbon dioxide level 11 mEq/L 21-32 Below low normal Carbon Di oxide Level [facility] ([facility]) anion gap 17 mEq/L 8-16 Above high normal Anion Gap [facility] ([facility]) calcium level 9.4 mg/dL 8.5-10.1 Calcium Level [facility]I ( [facility]) ID Date Data Source [id number] 12/11/2020 12:18:00 AM EST [facility] ([facility]) Name Value Range Interpretation Code Description Data Claribel rce(s) Supporting Document(s) venous partial pressure CO2 26.9 mmHg 38.0-50.0 Below low nor mal Venous Partial Pressure CO2 [facility] ([facility]) venous pH 7.171 units 7.330-7.430 Below low normal Venous pH [facility] ([facility]) venous partial pressure O2 98.1 mmHg 30.0-50.0 Above high nor mal Venous Partial Pressure O2 [facility] ([facility]) venous total CO2 10.4 mEq/L 24.0-28.0 Below low normal Venous Total CO2 [facility] ([facility]) venous base excess -2.0-2.0 Below low normal Venous Base Excess [facility] ([facility]) venous HCO3 9.6 mEq/L 23.0-27.0 Below low normal Venous HCO3 [facility] ([facility]) venous standard HCO3 11.7 mEq/L Venous Standard HCO3 [facility] ([facility]) venous O2 saturation 97.6 % 60.0-80.0 Above high normal Venous O 2 Saturation [facility] ([facility]) ID Date Data Source [id number] 12/11/2020 12:18:00 AM EST [facility] ([facility]) Name Value Range Interpretation Code Description Data Claribel rce(s) Supporting Document(s) osmolality serum 311 mOsm/kg 275-295 Above high normal Osmolality Serum [facility] ([facility]) ID Date Data Source [id number] 12/11/2020 12:18:00 AM EST [facility] ([facility]) Name Value Range Interpretation Code Description Data Claribel rce(s) Supporting Document(s) phosphorus level 2.4 mg/dL 2.5-4.9 Below low normal Phosphorus Le karma [facility] ([facility]) ID Date Data Source [id number] 12/11/2020 12:18:00 AM EST [facility] ([facility]) Name Value Range Interpretation Code Description Data Claribel rce(s) Supporting Document(s) glucose, fasting 129 mg/dL 70-100 Above high normal Glucose, Fas ting [facility] ([facility]) blood urea nitrogen 26 mg/dL 7-18 Above high normal Blood Ure a Nitrogen [facility] ([facility]) creatinine for GFR 1.51 mg/dL 0.55-1.30 Above high normal Creatinine for GFR [facility] ([facility]) glomerular filtration rate >60 Below low normal Mariza merular Filtration Rate [facility] ([facility]) sodium level 142 mEq/L 136-145 Sodium Level [facility] ([facility]) potassium serum 4.4 mEq/L 3.5-5.1 Potassium Serum ATHE NA ([facility]) chloride level 114 mEq/L 98-107 Above high normal Chloride Level [facility] ([facility]) carbon dioxide level 11 mEq/L 21-32 Below low normal Carbon Di oxide Level [facility]I ([facility]) anion gap 17 mEq/L 8-16 Above high normal Anion Gap [facility] ([facility]) calcium level 9.4 mg/dL 8.5-10.1 Calcium Level [facility] ( [facility]) ID Date Data Source [id number] 12/11/2020 12:18:00 AM EST [facility]I ([facility]) Name Value Range Interpretation Code Description Data Claribel rce(s) Supporting Document(s) venous partial pressure CO2 26.9 mmHg 38.0-50.0 Below low nor mal Venous Partial Pressure CO2 [facility] ([facility]) venous pH 7.171 units 7.330-7.430 Below low normal Venous pH [facility] ([facility]) venous partial pressure O2 98.1 mmHg 30.0-50.0 Above high nor mal Venous Partial Pressure O2 [facility] ([facility]) venous total CO2 10.4 mEq/L 24.0-28.0 Below low normal Venous Total CO2 [facility] ([facility]) venous HCO3 9.6 mEq/L 23.0-27.0 Below low normal Venous HCO3 [facility] ([facility]) venous base excess -2.0-2.0 Below low normal Venous Base Excess [facility] ([facility]) venous standard HCO3 11.7 mEq/L Venous Standard HCO3 [facility] ([facility]) venous O2 saturation 97.6 % 60.0-80.0 Above high normal Venous O 2 Saturation ARM[facility]ONG ([facility]) ID Date Data Source [id number] 12/11/2020 12:18:00 AM EST CYNDI ([facility]) Name Value Range Interpretation Code Description Data Claribel rce(s) Supporting Document(s) osmolality serum 311 mOsm/kg 275-295 Above high normal Osmolality Serum CYNDI ([facility]) ID Date Data Source [id number] 12/11/2020 12:18:00 AM EST CYNDI ([facility]) Name Value Range Interpretation Code Description Data Claribel rce(s) Supporting Document(s) phosphorus level 2.4 mg/dL 2.5-4.9 Below low normal Phosphorus Le karma CYNDI ([facility]) ID Date Data Source [id number] 12/11/2020 12:18:00 AM EST CYNDI ([facility]) Name Value Range Interpretation Code Description Data Claribel rce(s) Supporting Document(s) glucose, fasting 129 mg/dL 70-100 Above high normal Glucose, Fas ting CYNDI ([facility]) blood urea nitrogen 26 mg/dL 7-18 Above high normal Blood Ure a Nitrogen CYNDI ([facility]) creatinine for GFR 1.51 mg/dL 0.55-1.30 Above high normal Creatinine for GFR CYNDI ([facility]) glomerular filtration rate >60 Below low normal Mariza merular Filtration Rate CYNDI ([facility]) sodium level 142 mEq/L 136-145 Sodium Level CYNDI ([facility]) potassium serum 4.4 mEq/L 3.5-5.1 Potassium Serum ATH NA ([facility]) carbon dioxide level 11 mEq/L 21-32 Below low normal Carbon Di oxide Level ARMSTRONG ([facility]) chloride level 114 mEq/L 98-107 Above high normal Chloride Level CYNDI ([facility]) anion gap 17 mEq/L 8-16 Above high normal Anion Gap CYNDI ([facility]) calcium level 9.4 mg/dL 8.5-10.1 Calcium Level ARMSTRONG ( [facility]) ID Date Data Source [id number] 12/11/2020 12:18:00 AM EST ARMSTRONG ([facility]) Name Value Range Interpretation Code Description Data Claribel rce(s) Supporting Document(s) venous pH 7.171 units 7.330-7.430 Below low normal Venous pH YCNDI ([facility]) venous partial pressure CO2 26.9 mmHg 38.0-50.0 Below low nor mal Venous Partial Pressure CO2 CYNDI ([facility]) venous partial pressure O2 98.1 mmHg 30.0-50.0 Above high nor mal Venous Partial Pressure O2 CYNDI ([facility]) venous HCO3 9.6 mEq/L 23.0-27.0 Below low normal Venous HCO3 CYNDI ([facility]) venous total CO2 10.4 mEq/L 24.0-28.0 Below low normal Venous Total CO2 CYNDI ([facility]) venous base excess -2.0-2.0 Below low normal Venous Base Excess CYNDI ([facility]) venous standard HCO3 11.7 mEq/L Venous Standard HCO3 CYNDI ([facility]) venous O2 saturation 97.6 % 60.0-80.0 Above high normal Venous O 2 Saturation CYNDI ([facility]) ID Date Data Source [id number] 12/11/2020 12:18:00 AM EST CYNDI ([facility]) Name Value Range Interpretation Code Description Data Claribel rce(s) Supporting Document(s) osmolality serum 311 mOsm/kg 275-295 Above high normal Osmolality Serum ARMSTRONG ([facility]) ID Date Data Source [id number] 12/11/2020 12:18:00 AM EST CYNDI ([facility]) Name Value Range Interpretation Code Description Data Claribel rce(s) Supporting Document(s) phosphorus level 2.4 mg/dL 2.5-4.9 Below low normal Phosphorus Le karma CYNDI ([facility]) ID Date Data Source [id number] 12/11/2020 12:18:00 AM EST CYNDI ([facility]) Name Value Range Interpretation Code Description Data Claribel rce(s) Supporting Document(s) glucose, fasting 129 mg/dL 70-100 Above high normal Glucose, Fas ting CYNDI ([facility]) blood urea nitrogen 26 mg/dL 7-18 Above high normal Blood Ure a Nitrogen CYNDI ([facility]) creatinine for GFR 1.51 mg/dL 0.55-1.30 Above high normal Creatinine for GFR CYNDI ([facility]) glomerular filtration rate >60 Below low normal Mariza merular Filtration Rate CYNDI ([facility]) sodium level 142 mEq/L 136-145 Sodium Level CYNDI ([facility]) potassium serum 4.4 mEq/L 3.5-5.1 Potassium Serum ATHE NA ([facility]) chloride level 114 mEq/L 98-107 Above high normal Chloride Level CYNDI ([facility]) carbon dioxide level 11 mEq/L 21-32 Below low normal Carbon Di oxide Level CYNDI ([facility]) anion gap 17 mEq/L 8-16 Above high normal Anion Gap CYNDI ([facility]) calcium level 9.4 mg/dL 8.5-10.1 Calcium Level CYNDI ( [facility]) ID Date Data Source [id number] 12/11/2020 12:18:00 AM EST CYNDI ([facility]) Name Value Range Interpretation Code Description Data Claribel rce(s) Supporting Document(s) venous pH 7.171 units 7.330-7.430 Below low normal Venous pH CYNDI ([facility]) venous partial pressure CO2 26.9 mmHg 38.0-50.0 Below low nor mal Venous Partial Pressure CO2 CYNDI ([facility]) venous partial pressure O2 98.1 mmHg 30.0-50.0 Above high nor mal Venous Partial Pressure O2 CYNDI ([facility]) venous total CO2 10.4 mEq/L 24.0-28.0 Below low normal Venous Total CO2 CYNDI ([facility]) venous HCO3 9.6 mEq/L 23.0-27.0 Below low normal Venous HCO3 CYNDI ([facility]) venous base excess -2.0-2.0 Below low normal Venous Base Excess CYNDI ([facility]) venous standard HCO3 11.7 mEq/L Venous Standard HCO3 CYNDI ([facility]) venous O2 saturation 97.6 % 60.0-80.0 Above high normal Venous O 2 Saturation CYNDI ([facility]) ID Date Data Source [id number] 12/11/2020 12:18:00 AM EST CYNDI ([facility]) Name Value Range Interpretation Code Description Data Claribel rce(s) Supporting Document(s) osmolality serum 311 mOsm/kg 275-295 Above high normal Osmolality Serum CYNDI ([facility]) ID Date Data Source [id number] 12/11/2020 12:18:00 AM EST CYNDI ([facility]) Name Value Range Interpretation Code Description Data Claribel rce(s) Supporting Document(s) phosphorus level 2.4 mg/dL 2.5-4.9 Below low normal Phosphorus Le karma CYNDI ([facility]) ID Date Data Source [id number] 12/11/2020 12:18:00 AM EST CYNDI ([facility]) Name Value Range Interpretation Code Description Data Claribel rce(s) Supporting Document(s) glucose, fasting 129 mg/dL 70-100 Above high normal Glucose, Fas ting CYNDI ([facility]) blood urea nitrogen 26 mg/dL 7-18 Above high normal Blood Ure a Nitrogen CYNDI ([facility]) creatinine for GFR 1.51 mg/dL 0.55-1.30 Above high normal Creatinine for GFR CYNDI ([facility]) glomerular filtration rate >60 Below low normal Mariza merular Filtration Rate CYNDI ([facility]) sodium level 142 mEq/L 136-145 Sodium Level CYNDI (No [facility]) potassium serum 4.4 mEq/L 3.5-5.1 Potassium Serum ATHE NA ([facility]) chloride level 114 mEq/L 98-107 Above high normal Chloride Level ARMSTRONG ([facility]) carbon dioxide level 11 mEq/L 21-32 Below low normal Carbon Di oxide Level CYNDI ([facility]) anion gap 17 mEq/L 8-16 Above high normal Anion Gap ARMSTRONG ([facility]) calcium level 9.4 mg/dL 8.5-10.1 Calcium Level ARMSTRONG ( [facility]) ID Date Data Source [id number] 12/11/2020 12:18:00 AM EST CYNDI ([facility]) Name Value Range Interpretation Code Description Data Claribel rce(s) Supporting Document(s) venous pH 7.171 units 7.330-7.430 Below low normal Venous pH ARMSTRONG ([facility]) venous partial pressure CO2 26.9 mmHg 38.0-50.0 Below low nor mal Venous Partial Pressure CO2 CYNDI ([facility]) venous partial pressure O2 98.1 mmHg 30.0-50.0 Above high nor mal Venous Partial Pressure O2 CYNDI ([facility]) venous total CO2 10.4 mEq/L 24.0-28.0 Below low normal Venous Total CO2 CYNDI ([facility]) venous HCO3 9.6 mEq/L 23.0-27.0 Below low normal Venous HCO3 CYNDI ([facility]) venous base excess -2.0-2.0 Below low normal Venous Base Excess CYNDI ([facility]) venous standard HCO3 11.7 mEq/L Venous Standard HCO3 CYNDI ([facility]) venous O2 saturation 97.6 % 60.0-80.0 Above high normal Venous O 2 Saturation ARMSTRONG ([facility]) ID Date Data Source [id number] 12/11/2020 12:08:00 AM EST ARMSTRONG ([facility]) Name Value Range Interpretation Code Description Data Claribel rce(s) Supporting Document(s) bedside glucose 118 mg/dL 70-105 Above high normal Bedside Gluco se [facility]) ID Date Data Source [id number] 12/11/2020 [facility]08[facility] Name Value Range Interpretation Code Description Data Claribel rce(s) Supporting Document(s) bedside glucose 118 mg/dL 70-105 Above high normal Bedside Gluco se CYNDI ([facility]) ID Date Data Source [id number] 12/11/2020 12:08:00 [facility] Name Value Range Interpretation Code Description Data Claribel rce(s) Supporting Document(s) bedside glucose 118 mg/dL 70-105 Above high normal Bedside Gluco se [facility]) ID Date Data Source [id number] 12/11/2020 12:08:00 AM EST CYNDI ([facility]) Name Value Range Interpretation Code Description Data Claribel rce(s) Supporting Document(s) bedside glucose 118 mg/dL 70-105 Above high normal Bedside Gluco se CYNDI ([facility]) ID Date Data Source [id number] 12/11/2020 12:08:00 AM EST CYNDI ([facility]) Name Value Range Interpretation Code Description Data Claribel rce(s) Supporting Document(s) bedside glucose 118 mg/dL 70-105 Above high normal Bedside Gluco se CYNDI ([facility]) ID Date Data Source [id number] 12/11/2020 12:08:00 AM EST CYNDI ([facility]) Name Value Range Interpretation Code Description Data Claribel rce(s) Supporting Document(s) bedside glucose 118 mg/dL 70-105 Above high normal Bedside Gluco se CYNDI ([facility]) ID Date Data Source [id number] 12/10/2020 11:06:00 PM EST CYNDI ([facility]) Name Value Range Interpretation Code Description Data Claribel rce(s) Supporting Document(s) bedside glucose 102 mg/dL 70-105 Bedside Glucose ATHE NA ([facility]) ID Date Data Source [id number] 12/10/2020 11:06:00 PM EST CYNDI ([facility]) Name Value Range Interpretation Code Description Data Claribel rce(s) Supporting Document(s) bedside glucose 102 mg/dL 70-105 Bedside Glucose ATHE NA ([facility]) ID Date Data Source [id number] 12/10/2020 11:06:00 PM EST CYNDI ([facility]) Name Value Range Interpretation Code Description Data Claribel rce(s) Supporting Document(s) bedside glucose 102 mg/dL 70-105 Bedside Glucose ATHE NA ([facility]) ID Date Data Source [id number] 12/10/2020 11:06:00 PM EST CYNDI ([facility]) Name Value Range Interpretation Code Description Data Calribel rce(s) Supporting Document(s) bedside glucose 102 mg/dL 70-105 Bedside Glucose ATHE NA ([facility]) ID Date Data Source [id number] 12/10/2020 11:06:00 PM EST CYNDI ([facility]) Name Value Range Interpretation Code Description Data Claribel rce(s) Supporting Document(s) bedside glucose 102 mg/dL 70-105 Bedside Glucose ATHE NA ([facility]) ID Date Data Source [id number] 12/10/2020 11:06:00 PM EST CYNDI ([facility]) Name Value Range Interpretation Code Description Data Claribel rce(s) Supporting Document(s) bedside glucose 102 mg/dL 70-105 Bedside Glucose ATHE NA ([facility]) ID Date Data Source [id number] 12/10/2020 09:50:00 PM EST CYNDI ([facility]) Name Value Range Interpretation Code Description Data Claribel rce(s) Supporting Document(s) venous pH 7.294 units 7.330-7.430 Below low normal Venous pH CYNDI ([facility]) venous partial pressure O2 213.7 mmHg 30.0-50.0 Above high nor mal Venous Partial Pressure O2 CYNDI ([facility]) venous partial pressure CO2 14.3 mmHg 38.0-50.0 Below low nor mal Venous Partial Pressure CO2 CYNDI ([facility]) venous total CO2 7.2 mEq/L 24.0-28.0 Below low normal Venous Total CO2 CYNDI ([facility]) venous HCO3 6.8 mEq/L 23.0-27.0 Below low normal Venous HCO3 CYNDI ([facility]) venous base excess -2.0-2.0 Below low normal Venous Base Excess CYNDI ([facility]) venous O2 saturation 99.4 % 60.0-80.0 Above high normal Venous O 2 Saturation CYNDI ([facility]) venous standard HCO3 12.3 mEq/L Venous Standard HCO3 CYNDI ([facility]) venous site unknown Venous Site CYNDI ([facility]) ID Date Data Source [id number] 12/10/2020 09:50:00 PM EST CYNDI ([facility]) Name Value Range Interpretation Code Description Data Claribel rce(s) Supporting Document(s) venous pH 7.294 units 7.330-7.430 Below low normal Venous pH CYNDI ([facility]) venous partial pressure O2 213.7 mmHg 30.0-50.0 Above high nor mal Venous Partial Pressure O2 CYNDI ([facility]) venous total CO2 7.2 mEq/L 24.0-28.0 Below low normal Venous Total CO2 CYNDI ([facility]) venous partial pressure CO2 14.3 mmHg 38.0-50.0 Below low nor mal Venous Partial Pressure CO2 CYNDI ([facility]) venous base excess -2.0-2.0 Below low normal Venous Base Excess CYNDI ([facility]) venous HCO3 6.8 mEq/L 23.0-27.0 Below low normal Venous HCO3 CYNDI ([facility]) venous standard HCO3 12.3 mEq/L Venous Standard HCO3 CYNDI ([facility]) venous O2 saturation 99.4 % 60.0-80.0 Above high normal Venous O 2 Saturation CYNDI ([facility]) venous site unknown Venous Site CYNDI ([facility]) ID Date Data Source [id number] 12/10/2020 09:50:00 PM EST CYNDI ([facility]) Name Value Range Interpretation Code Description Data Claribel rce(s) Supporting Document(s) venous pH 7.294 units 7.330-7.430 Below low normal Venous pH CYNDI ([facility]) venous partial pressure CO2 14.3 mmHg 38.0-50.0 Below low nor mal Venous Partial Pressure CO2 CYNDI ([facility]) venous HCO3 6.8 mEq/L 23.0-27.0 Below low normal Venous HCO3 CYNDI ([facility]) venous total CO2 7.2 mEq/L 24.0-28.0 Below low normal Venous Total CO2 CYNDI ([facility]) venous partial pressure O2 213.7 mmHg 30.0-50.0 Above high nor mal Venous Partial Pressure O2 CYNDI ([facility]) venous base excess -2.0-2.0 Below low normal Venous Base Excess CYNDI ([facility]) venous site unknown Venous Site CYNDI ([facility]) venous O2 saturation 99.4 % 60.0-80.0 Above high normal Venous O 2 Saturation ARMSTRONG ([facility]) venous standard HCO3 12.3 mEq/L Venous Standard HCO3 ARMSTRONG ([facility]) ID Date Data Source [id number] 12/10/2020 09:50:00 PM EST CYNDI ([facility]) Name Value Range Interpretation Code Description Data Claribel rce(s) Supporting Document(s) venous partial pressure O2 213.7 mmHg 30.0-50.0 Above high nor mal Venous Partial Pressure O2 CYNDI ([facility]) venous pH 7.294 units 7.330-7.430 Below low normal Venous pH CYNDI ([facility]) venous total CO2 7.2 mEq/L 24.0-28.0 Below low normal Venous Total CO2 CYNDI ([facility]) venous partial pressure CO2 14.3 mmHg 38.0-50.0 Below low nor mal Venous Partial Pressure CO2 CYNDI ([facility]) venous standard HCO3 12.3 mEq/L Venous Standard HCO3 CYNDI ([facility]) venous HCO3 6.8 mEq/L 23.0-27.0 Below low normal Venous HCO3 CYNDI ([facility]) venous base excess -2.0-2.0 Below low normal Venous Base Excess CYNDI ([facility]) venous site unknown Venous Site CYNDI ([facility]) venous O2 saturation 99.4 % 60.0-80.0 Above high normal Venous O 2 Saturation CYNDI ([facility]) ID Date Data Source [id number] 12/10/2020 09:50:00 PM EST CYNDI ([facility]) Name Value Range Interpretation Code Description Data Claribel rce(s) Supporting Document(s) venous pH 7.294 units 7.330-7.430 Below low normal Venous pH CYNDI ([facility]) venous HCO3 6.8 mEq/L 23.0-27.0 Below low normal Venous HCO3 CYNDI ([facility]) venous partial pressure O2 213.7 mmHg 30.0-50.0 Above high nor mal Venous Partial Pressure O2 CYNDI ([facility]) venous partial pressure CO2 14.3 mmHg 38.0-50.0 Below low nor mal Venous Partial Pressure CO2 CYNDI ([facility]) venous total CO2 7.2 mEq/L 24.0-28.0 Below low normal Venous Total CO2 CYNDI ([facility]) venous base excess -2.0-2.0 Below low normal Venous Base Excess CYNDI ([facility]) venous standard HCO3 12.3 mEq/L Venous Standard HCO3 CYNDI ([facility]) venous O2 saturation 99.4 % 60.0-80.0 Above high normal Venous O 2 Saturation CYNDI ([facility]) venous site unknown Venous Site CYNDI ([facility]) ID Date Data Source [id number] 12/10/2020 09:50:00 PM EST CYNDI ([facility]) Name Value Range Interpretation Code Description Data Claribel rce(s) Supporting Document(s) venous pH 7.294 units 7.330-7.430 Below low normal Venous pH CYNDI ([facility]) venous partial pressure CO2 14.3 mmHg 38.0-50.0 Below low nor mal Venous Partial Pressure CO2 CYNDI ([facility]) venous partial pressure O2 213.7 mmHg 30.0-50.0 Above high nor mal Venous Partial Pressure O2 CYNDI ([facility]) venous standard HCO3 12.3 mEq/L Venous Standard HCO3 CYNDI ([facility]) venous total CO2 7.2 mEq/L 24.0-28.0 Below low normal Venous Total CO2 CYNDI ([facility]) venous HCO3 6.8 mEq/L 23.0-27.0 Below low normal Venous HCO3 CYNDI ([facility]) venous base excess -2.0-2.0 Below low normal Venous Base Excess CYNDI ([facility]) venous site unknown Venous Site CYNDI ([facility]) venous O2 saturation 99.4 % 60.0-80.0 Above high normal Venous O 2 Saturation ARMSTRONG ([facility]) ID Date Data Source [id number] 12/10/2020 09:34:00 PM EST ARMSTRONG ([facility]) Name Value Range Interpretation Code Description Data Claribel rce(s) Supporting Document(s) bedside glucose 126 mg/dL 70-105 Above high normal Bedside Gluco se [facility]) ID Date Data Source [id number] 12/10/2020 09:34:00 PM EST [facility]) Name Value Range Interpretation Code Description Data Claribel rce(s) Supporting Document(s) bedside glucose 126 mg/dL 70-105 Above high normal [facility] Date Data Source [id number] 12/10/2020 09:34:00 PM EST CYNDI ([facility]) Name Value Range Interpretation Code Description Data Claribel rce(s) Supporting Document(s) bedside glucose 126 mg/dL 70-105 Above high normal Bedside Gluco se [facility]) ID Date Data Source [id number] 12/10/2020 09:34:00 PM [facility] Name Value Range Interpretation Code Description Data Claribel rce(s) Supporting Document(s) bedside glucose 126 mg/dL 70-105 Above high normal [facility] ID Date Data Source [id number] 12/10/2020 09:34:00 PM EST CYNDI ([facility]) Name Value Range Interpretation Code Description Data Claribel rce(s) Supporting Document(s) bedside glucose 126 mg/dL 70-105 Above high normal Bedside Gluco se CYNDI ([facility]) ID Date Data Source [id number] 12/10/2020 09:34:00 PM EST CYNDI ([facility]) Name Value Range Interpretation Code Description Data Claribel rce(s) Supporting Document(s) bedside glucose 126 mg/dL 70-105 Above high normal Bedside Gluco se CYNDI ([facility]) ID Date Data Source [id number] 12/10/2020 08:54:00 PM EST CYNDI ([facility]) Name Value Range Interpretation Code Description Data Claribel rce(s) Supporting Document(s) ID Date Data Source [id number] 12/10/2020 08:54:00 PM EST CYNDI ([facility]) Name Value Range Interpretation Code Description Data Claribel rce(s) Supporting Document(s) ID Date Data Source [id number] 12/10/2020 08:54:00 PM EST CYNDI ([facility]) Name Value Range Interpretation Code Description Data Claribel rce(s) Supporting Document(s) ID Date Data Source [id number] 12/10/2020 08:54:00 PM EST CYNDI ([facility]) Name Value Range Interpretation Code Description Data Claribel rce(s) Supporting Document(s) ID Date Data Source [id number] 12/10/2020 08:54:00 PM EST CYNDI [facility]) Name Value Range Interpretation Code Description Data Claribel rce(s) Supporting Document(s) ID Date Data Source [id number] 12/10/2020 08:54:00 PM EST [facility] ([facility]) Name Value Range Interpretation Code Description Data Claribel rce(s) Supporting Document(s) ID Date Data Source [id number] 12/10/2020 08:35:00 PM EST [facility] ([facility]) Name Value Range Interpretation Code Description Data Claribel rce(s) Supporting Document(s) ID Date Data Source [id number] 12/10/2020 08:35:00 PM EST CY[facility] ([facility]) Name Value Range Interpretation Code Description Data Claribel rce(s) Supporting Document(s) osmolality serum 315 mOsm/kg 275-295 Above high normal Osmolality Serum [facility] ([facility]) ID Date Data Source [id number] 12/10/2020 08:35:00 PM EST CYND[facility] ([facility]) Name Value Range Interpretation Code Description Data Claribel rce(s) Supporting Document(s) phosphorus level 2.5 mg/dL 2.5-4.9 Phosphorus Level AT [facility]) ID Date Data Source [id number] 12/10/2020 08:35:00 PM EST CY[facility] ([facility]) Name Value Range Interpretation Code Description Data Claribel rce(s) Supporting Document(s) glucose, fasting 222 mg/dL 70-100 Above high normal Glucose, Fas ting [facility] ([facility]) blood urea nitrogen 27 mg/dL 7-18 Above high normal Blood Ure a Nitrogen [facility] ([facility]) creatinine for GFR 1.67 mg/dL 0.55-1.30 Above high normal Creatinine for GFR [facility] ([facility]) glomerular filtration rate >60 Below low normal Mariza merular Filtration Rate ARM[facility]ONG ([facility]) sodium level 138 mEq/L 136-145 Sodium Level [facility] ([facility]) potassium serum 4.7 mEq/L 3.5-5.1 Potassium Serum ATHE NA ([facility]) chloride level 110 mEq/L 98-107 Above high normal Chloride Level [facility] ([facility]) carbon dioxide level 10 mEq/L 21-32 Below low normal Carbon Di oxide Level CY[facility]I ([facility]) calcium level 9.9 mg/dL 8.5-10.1 Calcium Level CY[facility]I ( [facility]) anion gap 18 mEq/L 8-16 Above high normal Anion Gap [facility] ([facility]) ID Date Data Source [id number] 12/10/2020 08:35:00 PM EST CY[facility] ([facility]) Name Value Range Interpretation Code Description Data Claribel rce(s) Supporting Document(s) glucose, fasting 222 mg/dL 70-100 Above high normal Glucose, Fas ting [facility] ([facility]) blood urea nitrogen 27 mg/dL 7-18 Above high normal Blood Ure a Nitrogen [facility] ([facility]) sodium level 138 mEq/L 136-145 Sodium Level [facility]I ([facility]) creatinine for GFR 1.67 mg/dL 0.55-1.30 Above high normal Creatinine for GFR [facility] ([facility]) glomerular filtration rate >60 Below low normal Mariza merular Filtration Rate CY[facility] ([facility]) carbon dioxide level 10 mEq/L 21-32 Below low normal Carbon Di oxide Level [facility] ([facility]) potassium serum 4.7 mEq/L 3.5-5.1 Potassium Serum ATHE NA ([facility]) chloride level 110 mEq/L 98-107 Above high normal Chloride Level [facility] ([facility]) calcium level 9.9 mg/dL 8.5-10.1 Calcium Level CY[facility]I ( [facility]) anion gap 18 mEq/L 8-16 Above high normal Anion Gap [facility] ([facility]) ID Date Data Source [id number] 12/10/2020 08:35:00 PM EST CYND[facility] ([facility]) Name Value Range Interpretation Code Description Data Claribel rce(s) Supporting Document(s) ID Date Data Source [id number] 12/10/2020 08:35:00 PM EST CYNDI ([facility]) Name Value Range Interpretation Code Description Data Claribel rce(s) Supporting Document(s) osmolality serum 315 mOsm/kg 275-295 Above high normal Osmolality Serum [facility] ([facility]) ID Date Data Source [id number] 12/10/2020 08:35:00 PM EST CYND[facility] ([facility]) Name Value Range Interpretation Code Description Data Claribel rce(s) Supporting Document(s) phosphorus level 2.5 mg/dL 2.5-4.9 Phosphorus Level AT [facility]) ID Date Data Source [id number] 12/10/2020 08:35:00 PM EST CYNDI ([facility]) Name Value Range Interpretation Code Description Data Claribel rce(s) Supporting Document(s) blood urea nitrogen 27 mg/dL 7-18 Above high normal Blood Ure a Nitrogen [facility] ([facility]) creatinine for GFR 1.67 mg/dL 0.55-1.30 Above high normal Creatinine for GFR [facility] ([facility]) glucose, fasting 222 mg/dL 70-100 Above high normal Glucose, Fas ting [facility] ([facility]) glomerular filtration rate >60 Below low normal Mariza merular Filtration Rate CY[facility] ([facility]) potassium serum 4.7 mEq/L 3.5-5.1 Potassium Serum ATHE NA ([facility]) sodium level 138 mEq/L 136-145 Sodium Level [facility] ([facility]) chloride level 110 mEq/L 98-107 Above high normal Chloride Level [facility] ([facility]) carbon dioxide level 10 mEq/L 21-32 Below low normal Carbon Di oxide Level [facility] ([facility]) anion gap 18 mEq/L 8-16 Above high normal Anion Gap [facility] ([facility]) calcium level 9.9 mg/dL 8.5-10.1 Calcium Level CYNDI ( [facility]) ID Date Data Source [id number] 12/10/2020 08:35:00 PM EST CY[facility] ([facility]) Name Value Range Interpretation Code Description Data Claribel rce(s) Supporting Document(s) ID Date Data Source [id number] 12/10/2020 08:35:00 PM EST CYND[facility] ([facility]) Name Value Range Interpretation Code Description Data Claribel rce(s) Supporting Document(s) osmolality serum 315 mOsm/kg 275-295 Above high normal Osmolality Serum YCNDI ([facility]) ID Date Data Source [id number] 12/10/2020 08:35:00 PM EST CYNDI ([facility]) Name Value Range Interpretation Code Description Data Claribel rce(s) Supporting Document(s) phosphorus level 2.5 mg/dL 2.5-4.9 Phosphorus Level AT BEL[facility] ([facility]) ID Date Data Source [id number] 12/10/2020 08:35:00 PM EST CY[facility] ([facility]) Name Value Range Interpretation Code Description Data Claribel rce(s) Supporting Document(s) glucose, fasting 222 mg/dL 70-100 Above high normal Glucose, Fas ting [facility] ([facility]) glomerular filtration rate >60 Below low normal Mariza merular Filtration Rate [facility] ([facility]) blood urea nitrogen 27 mg/dL 7-18 Above high normal Blood Ure a Nitrogen [facility] ([facility]) creatinine for GFR 1.67 mg/dL 0.55-1.30 Above high normal Creatinine for GFR [facility] ([facility]) chloride level 110 mEq/L 98-107 Above high normal Chloride Level [facility] ([facility]) potassium serum 4.7 mEq/L 3.5-5.1 Potassium Serum ATHE NA ([facility]) sodium level 138 mEq/L 136-145 Sodium Level [facility]I ([facility]) anion gap 18 mEq/L 8-16 Above high normal Anion Gap [facility] ([facility]) carbon dioxide level 10 mEq/L 21-32 Below low normal Carbon Di oxide Level CY[facility]I ([facility]) calcium level 9.9 mg/dL 8.5-10.1 Calcium Level [facility] ( [facility]) ID Date Data Source [id number] 12/10/2020 08:35:00 PM EST CYND[facility] ([facility]) Name Value Range Interpretation Code Description Data Claribel rce(s) Supporting Document(s) ID Date Data Source [id number] 12/10/2020 08:35:00 PM EST CYND[facility] ([facility]) Name Value Range Interpretation Code Description Data Claribel rce(s) Supporting Document(s) osmolality serum 315 mOsm/kg 275-295 Above high normal Osmolality Serum [facility] ([facility]) ID Date Data Source [id number] 12/10/2020 08:35:00 PM EST CY[facility] ([facility]) Name Value Range Interpretation Code Description Data Claribel rce(s) Supporting Document(s) phosphorus level 2.5 mg/dL 2.5-4.9 Phosphorus Level AT [facility]) ID Date Data Source [id number] 12/10/2020 08:35:00 PM EST CYND[facility] ([facility]) Name Value Range Interpretation Code Description Data Claribel rce(s) Supporting Document(s) blood urea nitrogen 27 mg/dL 7-18 Above high normal Blood Ure a Nitrogen [facility] ([facility]) glucose, fasting 222 mg/dL 70-100 Above high normal Glucose, Fas ting [facility] ([facility]) creatinine for GFR 1.67 mg/dL 0.55-1.30 Above high normal Creatinine for GFR [facility] ([facility]) sodium level 138 mEq/L 136-145 Sodium Level [facility] ([facility]) glomerular filtration rate >60 Below low normal Mariza merular Filtration Rate [facility] ([facility]) potassium serum 4.7 mEq/L 3.5-5.1 Potassium Serum ATHE NA ([facility]) calcium level 9.9 mg/dL 8.5-10.1 Calcium Level CYNDI ( [facility]) anion gap 18 mEq/L 8-16 Above high normal Anion Gap [facility] ([facility]) carbon dioxide level 10 mEq/L 21-32 Below low normal Carbon Di oxide Level [facility] ([facility]) chloride level 110 mEq/L 98-107 Above high normal Chloride Level [facility] ([facility]) ID Date Data Source [id number] 12/10/2020 08:35:00 PM EST CYNDI ([facility]) Name Value Range Interpretation Code Description Data Claribel rce(s) Supporting Document(s) ID Date Data Source [id number] 12/10/2020 08:35:00 PM EST CYND[facility] ([facility]) Name Value Range Interpretation Code Description Data Claribel rce(s) Supporting Document(s) osmolality serum 315 mOsm/kg 275-295 Above high normal Osmolality Serum [facility] ([facility]) ID Date Data Source [id number] 12/10/2020 08:35:00 PM EST CYNDI ([facility]) Name Value Range Interpretation Code Description Data Claribel rce(s) Supporting Document(s) phosphorus level 2.5 mg/dL 2.5-4.9 Phosphorus Level AT [facility]) ID Date Data Source [id number] 12/10/2020 08:35:00 PM EST CYND[facility] ([facility]) Name Value Range Interpretation Code Description Data Claribel rce(s) Supporting Document(s) ID Date Data Source [id number] 12/10/2020 08:35:00 PM EST CY[facility] ([facility]) Name Value Range Interpretation Code Description Data Claribel rce(s) Supporting Document(s) osmolality serum 315 mOsm/kg 275-295 Above high normal Osmolality Serum [facility] ([facility]) ID Date Data Source [id number] 12/10/2020 08:35:00 PM EST CY[facility] ([facility]) Name Value Range Interpretation Code Description Data Claribel rce(s) Supporting Document(s) phosphorus level 2.5 mg/dL 2.5-4.9 Phosphorus Level AT [facility] ([facility]) ID Date Data Source [id number] 12/10/2020 08:35:00 PM EST CYNDI ([facility]) Name Value Range Interpretation Code Description Data Claribel rce(s) Supporting Document(s) glucose, fasting 222 mg/dL 70-100 Above high normal Glucose, Fas ting [facility] ([facility]) blood urea nitrogen 27 mg/dL 7-18 Above high normal Blood Ure a Nitrogen [facility] ([facility]) glomerular filtration rate >60 Below low normal Mariza merular Filtration Rate CY[facility] ([facility]) creatinine for GFR 1.67 mg/dL 0.55-1.30 Above high normal Creatinine for GFR [facility] ([facility]) chloride level 110 mEq/L 98-107 Above high normal Chloride Level [facility] ([facility]) sodium level 138 mEq/L 136-145 Sodium Level [facility] ([facility]) carbon dioxide level 10 mEq/L 21-32 Below low normal Carbon Di oxide Level [facility] ([facility]) potassium serum 4.7 mEq/L 3.5-5.1 Potassium Serum ATHE NA ([facility]) calcium level 9.9 mg/dL 8.5-10.1 Calcium Level [facility] ( [facility]) anion gap 18 mEq/L 8-16 Above high normal Anion Gap [facility] ([facility]) ID Date Data Source [id number] 12/10/2020 08:27:00 PM EST CYNDI ([facility]) Name Value Range Interpretation Code Description Data Claribel rce(s) Supporting Document(s) bedside glucose 206 mg/dL 70-105 Above high normal Bedside Gluco se [facility] ([facility]) ID Date Data Source [id number] 12/10/2020 08:27:00 PM EST CY[facility] ([facility]) Name Value Range Interpretation Code Description Data Claribel rce(s) Supporting Document(s) bedside glucose 206 mg/dL 70-105 Above high normal Bedside Gluco se [facility] ([facility]) ID Date Data Source [id number] 12/10/2020 08:27:00 PM EST CY[facility] ([facility]) Name Value Range Interpretation Code Description Data Claribel rce(s) Supporting Document(s) bedside glucose 206 mg/dL 70-105 Above high normal Bedside Gluco se [facility] ([facility]) ID Date Data Source [id number] 12/10/2020 08:27:00 PM EST [facility] ([facility]) Name Value Range Interpretation Code Description Data Claribel rce(s) Supporting Document(s) bedside glucose 206 mg/dL 70-105 Above high normal Bedside Gluco se [facility] ([facility]) ID Date Data Source [id number] 12/10/2020 08:27:00 PM EST CY[facility] ([facility]) Name Value Range Interpretation Code Description Data Claribel rce(s) Supporting Document(s) bedside glucose 206 mg/dL 70-105 Above high normal Bedside Gluco se [facility] ([facility]) ID Date Data Source [id number] 12/10/2020 08:27:00 PM EST CY[facility] ([facility]) Name Value Range Interpretation Code Description Data Claribel rce(s) Supporting Document(s) bedside glucose 206 mg/dL 70-105 Above high normal Bedside Gluco se [facility] ([facility]) ID Date Data Source [id number] 12/10/2020 07:46:00 PM EST [facility] ([facility]) Name Value Range Interpretation Code Description Data Claribel rce(s) Supporting Document(s) sars covid-19 amplification negative negative Sars Cov id-19 Amplification [facility] ([facility]) ID Date Data Source [id number] 12/10/2020 07:46:00 PM EST [facility]) Name Value Range Interpretation Code Description Data Claribel rce(s) Supporting Document(s) sars covid-19 amplification negative negative Sars Cov id-19 Amplification [facility]) ID Date Data Source [id number] 12/10/2020 07:46:00 PM EST [facility]) Name Value Range Interpretation Code Description Data Claribel rce(s) Supporting Document(s) sars covid-19 amplification negative negative Sars Cov id-19 Amplification [facility]) ID Date Data Source [id number] 12/10/2020 07:46:00 PM EST [facility]) Name Value Range Interpretation Code Description Data Claribel rce(s) Supporting Document(s) sars covid-19 amplification negative negative Sars Cov id-19 Amplification [facility]) ID Date Data Source [id number] 12/10/2020 07:46:00 PM EST [facility]) Name Value Range Interpretation Code Description Data Clraibel rce(s) Supporting Document(s) sars covid-19 amplification negative negative Sars Cov id-19 Amplification [facility]) ID Date Data Source [id number] 12/10/2020 07:46:00 PM EST [facility] Name Value Range Interpretation Code Description Data Claribel rce(s) Supporting Document(s) SARS coronavirus 2 RNA [Presence] in Res piratory specimen by ANDREE with probe detection NEGATIVE [facility] This lab was ordered by [facility] a nd reported by [facility]. ID Date Data Source [id number] 12/10/2020 07:46:00 PM EST [facility] ([facility]) Name Value Range Interpretation Code Description Data Claribel rce(s) Supporting Document(s) sars covid-19 amplification negative negative Sars Cov id-19 Amplification [facility]) ID Date Data Source [id number] 12/10/2020 06:53:00 PM EST [facility] ([facility]) Name Value Range Interpretation Code Description Data Claribel rce(s) Supporting Document(s) bedside glucose 342 mg/dL 70-105 Above high normal Bedside Gluco se [facility]) ID Date Data Source [id number] 12/10/2020 06:53:00 PM EST [facility]) Name Value Range Interpretation Code Description Data Claribel rce(s) Supporting Document(s) bedside glucose 342 mg/dL 70-105 Above high normal Bedside Gluco se [facility]) ID Date Data Source [id number] 12/10/2020 06:53:00 PM EST [facility]) Name Value Range Interpretation Code Description Data Claribel rce(s) Supporting Document(s) bedside glucose 342 mg/dL 70-105 Above high normal Bedside Gluco se [facility]) ID Date Data Source [id number] 12/10/2020 06:53:00 PM EST [facility]) Name Value Range Interpretation Code Description Data Claribel rce(s) Supporting Document(s) bedside glucose 342 mg/dL 70-105 Above high normal Bedside Gluco se [facility] ([facility]) ID Date Data Source [id number] 12/10/2020 06:53:00 PM EST [facility] ([facility]) Name Value Range Interpretation Code Description Data Claribel rce(s) Supporting Document(s) bedside glucose 342 mg/dL 70-105 Above high normal Bedside Gluco se [facility] ([facility]) ID Date Data Source [id number] 12/10/2020 06:53:00 PM EST [facility] ([facility]) Name Value Range Interpretation Code Description Data Claribel rce(s) Supporting Document(s) bedside glucose 342 mg/dL 70-105 Above high normal Bedside Gluco se [facility] ([facility]) ID Date Data Source [id number] 12/10/2020 05:58:00 PM EST [facility] ([facility]) Name Value Range Interpretation Code Description Data Claribel rce(s) Supporting Document(s) lipase 58 U/L 73-393 Below low normal Lipase [facility] ( [facility]) ID Date Data Source [id number] 12/10/2020 05:58:00 PM EST [facility] ([facility]) Name Value Range Interpretation Code Description Data Claribel rce(s) Supporting Document(s) magnesium level 2.3 mg/dL 1.8-2.4 Magnesium Level AT[facility] NA ([facility]) ID Date Data Source [id number] 12/10/2020 05:58:00 PM EST CY[facility] ([facility]) Name Value Range Interpretation Code Description Data Claribel rce(s) Supporting Document(s) ALT/SGPT 20 U/L 12-78 ALT/SGPT [facility] ([facility]) AST/SGOT 12 U/L 7-37 AST/SGOT [facility] ([facility]) bilirubin,direct < 0.1 0.0-0.2 Bilirubin,direct AT [facility] ([facility]) bilirubin,total 0.4 mg/dL 0.2-1.0 Bilirubin,total ATHE NA ([facility]) alkaline phosphatase 108 U/L 45-117 Alkaline Phosph atase [facility] ([facility]) albumin 3.7 gm/dL 3.2-5.2 Albumin [facility] ([facility]) total protein 8.2 gm/dL 6.4-8.2 Total Protein [facility] ( [facility]) albumin/globulin ratio 1.2-2.2 Below low normal Albumin /globulin Ratio [facility] ([facility]) ID Date Data Source [id number] 12/10/2020 05:58:00 PM EST [facility] ([facility]) Name Value Range Interpretation Code Description Data Claribel rce(s) Supporting Document(s) lactic acid sepsis protocol 1.2 mmol/L 0.4-2.0 Lactic A bro Sepsis Protocol [facility] ([facility]) ID Date Data Source [id number] 12/10/2020 05:58:00 PM EST [facility] ([facility]) Name Value Range Interpretation Code Description Data Claribel rce(s) Supporting Document(s) red blood count 5.54 10 4.00-5.40 Above high normal Red Blood Cou nt [facility]I ([facility]) white blood count 10.7 10 4.0-10.0 Above high normal White Blood Count [facility] ([facility]) hemoglobin 16.3 g/dL 12.0-15.5 Above high normal Hemoglobin [facility] ([facility]) hematocrit 51.1 % 36.0-47.0 Above high normal Hematocrit [facility] ([facility]) mean corpuscular volume 92.2 fL 80.0-96.0 Mean Corpusc ular Volume [facility] ([facility]) mean corpuscular hemoglobin 29.4 pg 27.0-33.0 Mean Cor puscular Hemoglobin [facility] ([facility]) mean corpuscular HGB conc 31.9 g/dL 32.0-36.5 Below low margaux l Mean Corpuscular HGB Conc [facility] ([facility]) red cell distribution width 13.1 % 11.5-14.5 Red Cell Distribution Width [facility] ([facility]) neutrophils % 81.9 % 36.0-66.0 Above high normal Neutrophils % A THENA ([facility]) platelet count, automated 313 10 150-450 Platelet C ount, Automated [facility] ([facility]) mono % 5.4 % 0.0-5.0 Above high normal [place] % [facility] ([facility]) lymph % 12.0 % 24.0-44.0 Below low normal Lymph % [facility] ( [facility]) eos % 0.0 % 0.0-3.0 Eos % [facility] ([facility]) baso % 0.4 % 0.0-1.0 Baso % [facility] ([facility]) immature granulocyte % 0.3 % 0-3.0 Immature Gran ulocyte % [facility] ([facility]) nucleated red blood cell % 0.0 % 0-0 Nucleated Red Blood Cell % [facility] ([facility]) neutrophils # 8.8 10 1.5-8.5 Above high normal Neutrophils # A THENA ([facility]) lymph # 1.3 10 1.5-5.0 Below low normal Lymph # CYNDI ( [facility]) mono # 0.6 10 0.0-0.8 [place] # CYNDI ([facility]) eos # 0.0 10 0.0-0.5 Eos # CYNDI ([facility]) baso # 0.0 10 0.0-0.2 Baso # CYNDI ([facility]) ID Date Data Source [id number] 12/10/2020 05:58:00 PM EST CYNDI ([facility]) Name Value Range Interpretation Code Description Data Claribel rce(s) Supporting Document(s) lipase 58 U/L 73-393 Below low normal Lipase CYNDI ( [facility]) ID Date Data Source [id number] 12/10/2020 05:58:00 PM EST CYNDI ([facility]) Name Value Range Interpretation Code Description Data Claribel rce(s) Supporting Document(s) magnesium level 2.3 mg/dL 1.8-2.4 Magnesium Level ATHE NA ([facility]) ID Date Data Source [id number] 12/10/2020 05:58:00 PM EST CYNDI ([facility]) Name Value Range Interpretation Code Description Data Claribel rce(s) Supporting Document(s) AST/SGOT 12 U/L 7-37 AST/SGOT CYNDI ([facility]) alkaline phosphatase 108 U/L 45-117 Alkaline Phosph atase CYNDI ([facility]) bilirubin,direct < 0.1 0.0-0.2 Bilirubin,direct AT [facility] ([facility]) bilirubin,total 0.4 mg/dL 0.2-1.0 Bilirubin,total ATHE NA ([facility]) ALT/SGPT 20 U/L 12-78 ALT/SGPT CYNDI ([facility]) total protein 8.2 gm/dL 6.4-8.2 Total Protein CYNDI ( [facility]) albumin 3.7 gm/dL 3.2-5.2 Albumin CYNDI ([facility]) albumin/globulin ratio 1.2-2.2 Below low normal Albumin /globulin Ratio CYNDI ([facility]) ID Date Data Source [id number] 12/10/2020 05:58:00 PM EST CYNDI ([facility]) Name Value Range Interpretation Code Description Data Claribel rce(s) Supporting Document(s) lactic acid sepsis protocol 1.2 mmol/L 0.4-2.0 Lactic A bro Sepsis Protocol CYNDI ([facility]) ID Date Data Source [id number] 12/10/2020 05:58:00 PM EST [place] ([facility]) Name Value Range Interpretation Code Description Data Claribel rce(s) Supporting Document(s) hemoglobin 16.3 g/dL 12.0-15.5 Above high normal Hemoglobin CYNDI ([facility]) red blood count 5.54 10 4.00-5.40 Above high normal Red Blood Cou nt CYNDI ([facility]) white blood count 10.7 10 4.0-10.0 Above high normal White Blood Count CY[facility]I ([facility]) mean corpuscular volume 92.2 fL 80.0-96.0 Mean Corpusc ular Volume CYNDI ([facility]) hematocrit 51.1 % 36.0-47.0 Above high normal Hematocrit [place] ([facility]) mean corpuscular HGB conc 31.9 g/dL 32.0-36.5 Below low margaux l Mean Corpuscular HGB Conc [place] ([facility]) mean corpuscular hemoglobin 29.4 pg 27.0-33.0 Mean Cor puscular Hemoglobin CYNDI ([facility]) red cell distribution width 13.1 % 11.5-14.5 Red Cell Distribution Width [place] ([facility]) lymph % 12.0 % 24.0-44.0 Below low normal Lymph % [place] ( [facility]) neutrophils % 81.9 % 36.0-66.0 Above high normal Neutrophils % A THE[place] ([facility]) platelet count, automated 313 10 150-450 Platelet C ount, Automated CYNDI ([facility]) eos % 0.0 % 0.0-3.0 Eos % CYNDI ([facility]) baso % 0.4 % 0.0-1.0 Baso % CYNDI ([facility]) mono % 5.4 % 0.0-5.0 Above high normal [place] % [place] ([facility]) nucleated red blood cell % 0.0 % 0-0 Nucleated Red Blood Cell % CYNDI ([facility]) immature granulocyte % 0.3 % 0-3.0 Immature Gran ulocyte % [place] ([facility]) lymph # 1.3 10 1.5-5.0 Below low normal Lymph # CYNDI ( [facility]) mono # 0.6 10 0.0-0.8 [place] # CYNDI ([facility]) neutrophils # 8.8 10 1.5-8.5 Above high normal Neutrophils # A THENA ([facility]) eos # 0.0 10 0.0-0.5 Eos # CYNDI ([facility]) baso # 0.0 10 0.0-0.2 Baso # CYNDI ([facility]) ID Date Data Source [id number] 12/10/2020 05:58:00 PM EST CYNDI ([facility]) Name Value Range Interpretation Code Description Data Claribel rce(s) Supporting Document(s) lipase 58 U/L 73-393 Below low normal Lipase CYNDI ( [facility]) ID Date Data Source [id number] 12/10/2020 05:58:00 PM EST CYNDI ([facility]) Name Value Range Interpretation Code Description Data Claribel rce(s) Supporting Document(s) magnesium level 2.3 mg/dL 1.8-2.4 Magnesium Level ATHE NA ([facility]) ID Date Data Source [id number] 12/10/2020 05:58:00 PM EST CYNDI ([facility]) Name Value Range Interpretation Code Description Data Claribel rce(s) Supporting Document(s) ALT/SGPT 20 U/L 12-78 ALT/SGPT [facility] ([facility]) AST/SGOT 12 U/L 7-37 AST/SGOT CYNDI ([facility]) bilirubin,direct < 0.1 0.0-0.2 Bilirubin,direct AT [place] ([facility]) bilirubin,total 0.4 mg/dL 0.2-1.0 Bilirubin,total ATHE NA ([facility]) alkaline phosphatase 108 U/L 45-117 Alkaline Phosph atase CYNDI ([facility]) albumin/globulin ratio 1.2-2.2 Below low normal Albumin /globulin Ratio CYNDI ([facility]) albumin 3.7 gm/dL 3.2-5.2 Albumin [facility] ([facility]) total protein 8.2 gm/dL 6.4-8.2 Total Protein CYNDI ( [facility]) ID Date Data Source [id number] 12/10/2020 05:58:00 PM EST [place] ([facility]) Name Value Range Interpretation Code Description Data Claribel rce(s) Supporting Document(s) lactic acid sepsis protocol 1.2 mmol/L 0.4-2.0 Lactic A bro Sepsis Protocol [place] ([facility]) ID Date Data Source [id number] 12/10/2020 05:58:00 PM EST [place] ([facility]) Name Value Range Interpretation Code Description Data Claribel rce(s) Supporting Document(s) red blood count 5.54 10 4.00-5.40 Above high normal Red Blood Cou nt [place] ([facility]) white blood count 10.7 10 4.0-10.0 Above high normal White Blood Count [facility]) mean corpuscular volume 92.2 fL 80.0-96.0 Mean Corpusc ular Volume CYNDI ([facility]) hemoglobin 16.3 g/dL 12.0-15.5 Above high normal Hemoglobin CYNDI ([facility]) hematocrit 51.1 % 36.0-47.0 Above high normal Hematocrit CYNDI ([facility]) mean corpuscular hemoglobin 29.4 pg 27.0-33.0 Mean Cor puscular Hemoglobin CYNDI ([facility]) red cell distribution width 13.1 % 11.5-14.5 Red Cell Distribution Width [place] ([facility]) mean corpuscular HGB conc 31.9 g/dL 32.0-36.5 Below low margaux l Mean Corpuscular HGB Conc CYNDI ([facility]) platelet count, automated 313 10 150-450 Platelet C ount, Automated CYNDI ([facility]) neutrophils % 81.9 % 36.0-66.0 Above high normal Neutrophils % A THENA ([facility]) lymph % 12.0 % 24.0-44.0 Below low normal Lymph % CYNDI ( [facility]) mono % 5.4 % 0.0-5.0 Above high normal [place] % CYNDI ([facility]) eos % 0.0 % 0.0-3.0 Eos % CYNDI ([facility]) baso % 0.4 % 0.0-1.0 Baso % CYNDI ([facility]) nucleated red blood cell % 0.0 % 0-0 Nucleated Red Blood Cell % CYNDI ([facility]) immature granulocyte % 0.3 % 0-3.0 Immature Gran ulocyte % CYNDI ([facility]) neutrophils # 8.8 10 1.5-8.5 Above high normal Neutrophils # A THENA ([facility]) lymph # 1.3 10 1.5-5.0 Below low normal Lymph # CYNDI ( [facility]) mono # 0.6 10 0.0-0.8 [place] # CYNDI ([facility]) eos # 0.0 10 0.0-0.5 Eos # CYNDI ([facility]) baso # 0.0 10 0.0-0.2 Baso # CYNDI ([facility]) ID Date Data Source [id number] 12/10/2020 05:58:00 PM EST CYNDI ([facility]) Name Value Range Interpretation Code Description Data Claribel rce(s) Supporting Document(s) lipase 58 U/L 73-393 Below low normal Lipase [place] ( [facility]) ID Date Data Source [id number] 12/10/2020 05:58:00 PM EST CYNDI ([facility]) Name Value Range Interpretation Code Description Data Claribel rce(s) Supporting Document(s) magnesium level 2.3 mg/dL 1.8-2.4 Magnesium Level ATHE NA ([facility]) ID Date Data Source [id number] 12/10/2020 05:58:00 PM EST CYNDI ([facility]) Name Value Range Interpretation Code Description Data Claribel rce(s) Supporting Document(s) ALT/SGPT 20 U/L 12-78 ALT/SGPT CY[facility]I ([facility]) AST/SGOT 12 U/L 7-37 AST/SGOT CYNDI ([facility]) alkaline phosphatase 108 U/L 45-117 Alkaline Phosph atase CYNDI ([facility]) bilirubin,total 0.4 mg/dL 0.2-1.0 Bilirubin,total ATHE NA ([facility]) bilirubin,direct < 0.1 0.0-0.2 Bilirubin,direct AT [place] ([facility]) total protein 8.2 gm/dL 6.4-8.2 Total Protein CYNDI ( [facility]) albumin 3.7 gm/dL 3.2-5.2 Albumin CYNDI ([facility]) albumin/globulin ratio 1.2-2.2 Below low normal Albumin /globulin Ratio CYNDI ([facility]) ID Date Data Source [id number] 12/10/2020 05:58:00 PM EST CYNDI ([facility]) Name Value Range Interpretation Code Description Data Claribel rce(s) Supporting Document(s) lactic acid sepsis protocol 1.2 mmol/L 0.4-2.0 Lactic A bro Sepsis Protocol CYNDI ([facility]) ID Date Data Source [id number] 12/10/2020 05:58:00 PM EST CYNDI ([facility]) Name Value Range Interpretation Code Description Data Claribel rce(s) Supporting Document(s) red blood count 5.54 10 4.00-5.40 Above high normal Red Blood Cou nt CYNDI ([facility]) white blood count 10.7 10 4.0-10.0 Above high normal White Blood Count CY[facility] ([facility]) hemoglobin 16.3 g/dL 12.0-15.5 Above high normal Hemoglobin CYNDI ([facility]) hematocrit 51.1 % 36.0-47.0 Above high normal Hematocrit CYNDI ([facility]) mean corpuscular volume 92.2 fL 80.0-96.0 Mean Corpusc ular Volume CYNDI ([facility]) mean corpuscular hemoglobin 29.4 pg 27.0-33.0 Mean Cor puscular Hemoglobin CYNDI ([facility]) mean corpuscular HGB conc 31.9 g/dL 32.0-36.5 Below low margaux l Mean Corpuscular HGB Conc CYNDI ([facility]) red cell distribution width 13.1 % 11.5-14.5 Red Cell Distribution Width CYNDI ([facility]) neutrophils % 81.9 % 36.0-66.0 Above high normal Neutrophils % A [place] ([facility]) lymph % 12.0 % 24.0-44.0 Below low normal Lymph % CYNDI ( [facility]) platelet count, automated 313 10 150-450 Platelet C ount, Automated CYNDI ([facility]) mono % 5.4 % 0.0-5.0 Above high normal [place] % CYNDI ([facility]) eos % 0.0 % 0.0-3.0 Eos % CYNDI ([facility]) baso % 0.4 % 0.0-1.0 Baso % CYNDI ([facility]) immature granulocyte % 0.3 % 0-3.0 Immature Gran ulocyte % CYNDI ([facility]) nucleated red blood cell % 0.0 % 0-0 Nucleated Red Blood Cell % CYNDI ([facility]) lymph # 1.3 10 1.5-5.0 Below low normal Lymph # CYNDI ( [facility]) neutrophils # 8.8 10 1.5-8.5 Above high normal Neutrophils # [facility] mono # 0.6 10 0.0-0.8 [place] # CYNDI ([facility]) eos # 0.0 10 0.0-0.5 Eos # CYNDI ([facility]) baso # 0.0 10 0.0-0.2 Baso # CYNDI ([facility]) ID Date Data Source [id number] 12/10/2020 05:58:00 PM EST CYNDI ([facility]) Name Value Range Interpretation Code Description Data Claribel rce(s) Supporting Document(s) lipase 58 U/L 73-393 Below low normal Lipase CYNDI ( [facility]) ID Date Data Source [id number] 12/10/2020 05:58:00 PM EST CYNDI ([facility]) Name Value Range Interpretation Code Description Data Claribel rce(s) Supporting Document(s) magnesium level 2.3 mg/dL 1.8-2.4 Magnesium Level ATHE NA ([facility]) ID Date Data Source [id number] 12/10/2020 05:58:00 PM EST CYNDI ([facility]) Name Value Range Interpretation Code Description Data Claribel rce(s) Supporting Document(s) AST/SGOT 12 U/L 7-37 AST/SGOT [facility]I ([facility]) alkaline phosphatase 108 U/L 45-117 Alkaline Phosph atase CYNDI ([facility]) bilirubin,total 0.4 mg/dL 0.2-1.0 Bilirubin,total ATHE NA ([facility]) ALT/SGPT 20 U/L 12-78 ALT/SGPT [facility]I ([facility]) total protein 8.2 gm/dL 6.4-8.2 Total Protein CYNDI ( [facility]) albumin 3.7 gm/dL 3.2-5.2 Albumin CYNDI ([facility]) bilirubin,direct < 0.1 0.0-0.2 Bilirubin,direct AT [place] ([facility]) albumin/globulin ratio 1.2-2.2 Below low normal Albumin /globulin Ratio CYNDI ([facility]) ID Date Data Source [id number] 12/10/2020 05:58:00 PM EST CYNDI ([facility]) Name Value Range Interpretation Code Description Data Claribel rce(s) Supporting Document(s) lactic acid sepsis protocol 1.2 mmol/L 0.4-2.0 Lactic A bro Sepsis Protocol [place] ([facility]) ID Date Data Source [id number] 12/10/2020 05:58:00 PM EST CYNDI ([facility]) Name Value Range Interpretation Code Description Data Claribel rce(s) Supporting Document(s) white blood count 10.7 10 4.0-10.0 Above high normal White Blood Count [place] ([facility]) hemoglobin 16.3 g/dL 12.0-15.5 Above high normal Hemoglobin [place] ([facility]) red blood count 5.54 10 4.00-5.40 Above high normal Red Blood Cou nt [place] ([facility]) hematocrit 51.1 % 36.0-47.0 Above high normal Hematocrit [place] ([facility]) mean corpuscular hemoglobin 29.4 pg 27.0-33.0 Mean Cor puscular Hemoglobin [place] ([facility]) mean corpuscular volume 92.2 fL 80.0-96.0 Mean Corpusc ular Volume [place] ([facility]) mean corpuscular HGB conc 31.9 g/dL 32.0-36.5 Below low margaux l Mean Corpuscular HGB Conc CYNDI ([facility]) red cell distribution width 13.1 % 11.5-14.5 Red Cell Distribution Width [place] ([facility]) platelet count, automated 313 10 150-450 Platelet C ount, Automated [facility]) lymph % 12.0 % 24.0-44.0 Below low normal Lymph % [place] ( [facility]) neutrophils % 81.9 % 36.0-66.0 Above high normal Neutrophils % A THEN[facility]) mono % 5.4 % 0.0-5.0 Above high normal [place] % CYNDI ([facility]) baso % 0.4 % 0.0-1.0 Baso % CYNDI ([facility]) eos % 0.0 % 0.0-3.0 Eos % CYNDI ([facility]) nucleated red blood cell % 0.0 % 0-0 Nucleated Red Blood Cell % CYNDI ([facility]) immature granulocyte % 0.3 % 0-3.0 Immature Gran ulocyte % CYNDI ([facility]) lymph # 1.3 10 1.5-5.0 Below low normal Lymph # CYNDI ( [facility]) neutrophils # 8.8 10 1.5-8.5 Above high normal Neutrophils # A THENA ([facility]) mono # 0.6 10 0.0-0.8 [place] # CYNDI ([facility]) baso # 0.0 10 0.0-0.2 Baso # CYNDI ([facility]) eos # 0.0 10 0.0-0.5 Eos # CYNDI ([facility]) ID Date Data Source [id number] 12/10/2020 05:58:00 PM EST CYNDI ([facility]) Name Value Range Interpretation Code Description Data Claribel rce(s) Supporting Document(s) lipase 58 U/L 73-393 Below low normal Lipase CYNDI ( [facility]) ID Date Data Source [id number] 12/10/2020 05:58:00 PM EST CYNDI ([facility]) Name Value Range Interpretation Code Description Data Claribel rce(s) Supporting Document(s) magnesium level 2.3 mg/dL 1.8-2.4 Magnesium Level ATHE NA ([facility]) ID Date Data Source [id number] 12/10/2020 05:58:00 PM EST CYNDI ([facility]) Name Value Range Interpretation Code Description Data Claribel rce(s) Supporting Document(s) AST/SGOT 12 U/L 7-37 AST/SGOT CY[facility]I ([facility]) alkaline phosphatase 108 U/L 45-117 Alkaline Phosph atase CYNDI ([facility]) ALT/SGPT 20 U/L 12-78 ALT/SGPT [facility]I ([facility]) bilirubin,total 0.4 mg/dL 0.2-1.0 Bilirubin,total ATHE NA ([facility]) bilirubin,direct < 0.1 0.0-0.2 Bilirubin,direct AT [place] ([facility]) albumin 3.7 gm/dL 3.2-5.2 Albumin CYNDI ([facility]) total protein 8.2 gm/dL 6.4-8.2 Total Protein CYNDI ( [facility]) albumin/globulin ratio 1.2-2.2 Below low normal Albumin /globulin Ratio [place] ([facility]) ID Date Data Source [id number] 12/10/2020 05:58:00 PM EST [place] ([facility]) Name Value Range Interpretation Code Description Data Claribel rce(s) Supporting Document(s) lactic acid sepsis protocol 1.2 mmol/L 0.4-2.0 Lactic A bro Sepsis Protocol [place] ([facility]) ID Date Data Source [id number] 12/10/2020 05:58:00 PM EST [place] ([facility]) Name Value Range Interpretation Code Description Data Claribel rce(s) Supporting Document(s) white blood count 10.7 10 4.0-10.0 Above high normal White Blood Count CY[facility]I ([facility]) hemoglobin 16.3 g/dL 12.0-15.5 Above high normal Hemoglobin CY[facility]I ([facility]) red blood count 5.54 10 4.00-5.40 Above high normal Red Blood Cou nt CY[facility]I ([facility]) mean corpuscular volume 92.2 fL 80.0-96.0 Mean Corpusc ular Volume CY[facility]I ([facility]) hematocrit 51.1 % 36.0-47.0 Above high normal Hematocrit [facility]I ([facility]) mean corpuscular hemoglobin 29.4 pg 27.0-33.0 Mean Cor puscular Hemoglobin CYNDI ([facility]) platelet count, automated 313 10 150-450 Platelet C ount, Automated [place] ([facility]) mean corpuscular HGB conc 31.9 g/dL 32.0-36.5 Below low margaux l Mean Corpuscular HGB Conc CY[facility]I ([facility]) red cell distribution width 13.1 % 11.5-14.5 Red Cell Distribution Width [facility] ([facility]) lymph % 12.0 % 24.0-44.0 Below low normal Lymph % CYNDI ( [facility]) neutrophils % 81.9 % 36.0-66.0 Above high normal Neutrophils % [facility] mono % 5.4 % 0.0-5.0 Above high normal [place] % [place] ([facility]) eos % 0.0 % 0.0-3.0 Eos % CYNDI ([facility]) baso % 0.4 % 0.0-1.0 Baso % CYNDI ([facility]) immature granulocyte % 0.3 % 0-3.0 Immature Gran ulocyte % CYNDI ([facility]) neutrophils # 8.8 10 1.5-8.5 Above high normal Neutrophils # A [place] ([facility]) lymph # 1.3 10 1.5-5.0 Below low normal Lymph # CYNDI ( [facility]) nucleated red blood cell % 0.0 % 0-0 Nucleated Red Blood Cell % CY[facility]I ([facility]) eos # 0.0 10 0.0-0.5 Eos # CYNDI ([facility]) mono # 0.6 10 0.0-0.8 [place] # CY[facility]I ([facility]) baso # 0.0 10 0.0-0.2 Baso # CYNDI ([facility]) ID Date Data Source [id number] 12/10/2020 05:56:00 PM EST CY[place]I ([facility]) Name Value Range Interpretation Code Description Data Claribel rce(s) Supporting Document(s) bedside glucose 322 mg/dL 70-105 Above high normal Bedside Gluco se CYNDI ([facility]) ID Date Data Source [id number] 12/10/2020 05:56:00 PM EST [place] ([facility]) Name Value Range Interpretation Code Description Data Claribel rce(s) Supporting Document(s) bedside glucose 322 mg/dL 70-105 Above high normal Bedside Gluco se CY[facility]I ([facility]) ID Date Data Source [id number] 12/10/2020 05:56:00 PM EST [place] ([facility]) Name Value Range Interpretation Code Description Data Claribel rce(s) Supporting Document(s) bedside glucose 322 mg/dL 70-105 Above high normal Bedside Gluco se [facility]I ([facility]) ID Date Data Source [id number] 12/10/2020 05:56:00 PM EST [place] ([facility]) Name Value Range Interpretation Code Description Data Claribel rce(s) Supporting Document(s) bedside glucose 322 mg/dL 70-105 Above high normal Bedside Gluco se [facility]I ([facility]) ID Date Data Source [id number] 12/10/2020 05:56:00 PM EST [place] ([facility]) Name Value Range Interpretation Code Description Data Claribel rce(s) Supporting Document(s) bedside glucose 322 mg/dL 70-105 Above high normal Bedside Gluco se [facility] ([facility]) ID Date Data Source [id number] 12/10/2020 05:56:00 PM EST [place] [facility] [facility] Name Value Range Interpretation Code Description Data Claribel rce(s) Supporting Document(s) bedside glucose 322 mg/dL 70-105 Above high normal Bedside Gluco se [facility] ([facility]) ID Date Data Source [id number] 12/10/2020 05:41:00 PM EST [facility] ([facility]) Name Value Range Interpretation Code Description Data Claribel rce(s) Supporting Document(s) Hemoglobin A1c/Hemoglobin.total in Blood 11.1 % Hemoglobin a1C [facility] ([facility]) estimated average glucose 272 mg/dL 60-110 Above high norm al Estimated Average Glucose [facility] ([facility]) ID Date Data Source [id number] 12/10/2020 05:41:00 PM EST [facility] ([facility]) Name Value Range Interpretation Code Description Data Claribel rce(s) Supporting Document(s) Hemoglobin A1c/Hemoglobin.total in Blood 11.1 % Hemoglobin a1C [facility] ([facility]) estimated average glucose 272 mg/dL 60-110 Above high norm al Estimated Average Glucose [facility] ([facility]) ID Date Data Source [id number] 12/10/2020 05:41:00 PM EST [facility] ([facility]) Name Value Range Interpretation Code Description Data Claribel rce(s) Supporting Document(s) Hemoglobin A1c/Hemoglobin.total in Blood 11.1 % Hemoglobin a1C [facility] ([facility]) estimated average glucose 272 mg/dL 60-110 Above high norm al Estimated Average Glucose [facility] ([facility]) ID Date Data Source [id number] 12/10/2020 05:41:00 PM EST [facility] ([facility]) Name Value Range Interpretation Code Description Data Claribel rce(s) Supporting Document(s) Hemoglobin A1c/Hemoglobin.total in Blood 11.1 % Hemoglobin a1C [facility] ([facility]) estimated average glucose 272 mg/dL 60-110 Above high norm al Estimated Average Glucose [facility] ([facility]) ID Date Data Source [id number] 12/10/2020 05:41:00 PM EST [facility] ([facility]) Name Value Range Interpretation Code Description Data Claribel rce(s) Supporting Document(s) estimated average glucose 272 mg/dL 60-110 Above high norm al Estimated Average Glucose CYDNI ([facility]) Hemoglobin A1c/Hemoglobin.total in Blood 11.1 % Hemoglobin a1C [facility] ([facility]) ID Date Data Source [id number] 12/10/2020 05:41:00 PM EST [facility] ([facility]) Name Value Range Interpretation Code Description Data Claribel rce(s) Supporting Document(s) estimated average glucose 272 mg/dL 60-110 Above high norm al Estimated Average Glucose [facility] ([facility]) Hemoglobin A1c/Hemoglobin.total in Blood 11.1 % Hemoglobin a1C [facility] ([facility]) ID Date Data Source [id number] 12/10/2020 05:09:00 PM EST [facility] ([facility]) Name Value Range Interpretation Code Description Data Claribel rce(s) Supporting Document(s) acetone/ketone > 46.00 <2.81 Above high normal Acetone/ketone [facility] ([facility]) ID Date Data Source [id number] 12/10/2020 05:09:00 PM EST [facility] ([facility]) Name Value Range Interpretation Code Description Data Claribel rce(s) Supporting Document(s) acetone/ketone > 46.00 <2.81 Above high normal Acetone/ketone [facility] ([facility]) ID Date Data Source [id number] 12/10/2020 05:09:00 PM EST [facility] ([facility]) Name Value Range Interpretation Code Description Data Claribel rce(s) Supporting Document(s) acetone/ketone > 46.00 <2.81 Above high normal [facility] Date Data Source [id number] 12/10/2020 05:09:00 PM EST [facility] ([facility]) Name Value Range Interpretation Code Description Data Claribel rce(s) Supporting Document(s) acetone/ketone > 46.00 <2.81 Above high normal Acetone/ketone [facility] ([facility]) ID Date Data Source [id number] 12/10/2020 05:09:00 PM EST [facility] ([facility]) Name Value Range Interpretation Code Description Data Calribel rce(s) Supporting Document(s) acetone/ketone > 46.00 <2.81 Above high normal Acetone/ketone [facility] ([facility]) ID Date Data Source [id number] 12/10/2020 05:09:00 PM EST [facility] ([facility]) Name Value Range Interpretation Code Description Data Claribel rce(s) Supporting Document(s) acetone/ketone > 46.00 <2.81 Above high normal Acetone/ketone [facility] ([facility]) ID Date Data Source [id number] 12/10/2020 05:08:00 PM EST [facility] ([facility]) Name Value Range Interpretation Code Description Data Claribel rce(s) Supporting Document(s) ABG pH (arterial) 7.117 units 7.350-7.450 Below low normal ABG pH (Ar terial) [facility]I ([facility]) ABG partial pressure O2 125.1 mmHg 75.0-100.0 Above high normal ABG Partial Pressure O2 [facility] ([facility]) ABG partial pressure CO2 16.7 mmHg 35.0-45.0 Below low normal ABG Partial Pressure CO2 [facility] ([facility]) ABG total CO2 5.8 mEq/L 22.0-29.0 Below low normal ABG Total CO2 AT [facility] ([facility]) ABG base excess -2.0-2.0 Below low normal ABG Base Exces s [facility] ([facility]) ABG HCO3 5.3 mEq/L 22.0-26.0 Below low normal Abg Hco3 [facility] ( [facility]) ABG standard HCO3 9.1 mEq/L 22.0-26.0 Below low normal ABG Standard HCO3 [facility] ([facility]) ABG O2 saturation 98.2 % 95.0-99.0 ABG O2 Saturation [facility] ([facility]) ID Date Data Source [id number] 12/10/2020 05:08:00 PM EST [facility] ([facility]) Name Value Range Interpretation Code Description Data Claribel rce(s) Supporting Document(s) ABG pH (arterial) 7.117 units 7.350-7.450 Below low normal ABG pH (Ar terial) [facility] ([facility]) ABG partial pressure CO2 16.7 mmHg 35.0-45.0 Below low normal ABG Partial Pressure CO2 [facility] ([facility]) ABG total CO2 5.8 mEq/L 22.0-29.0 Below low normal ABG Total CO2 AT [facility] ([facility]) ABG partial pressure O2 125.1 mmHg 75.0-100.0 Above high normal ABG Partial Pressure O2 [facility] ([facility]) ABG standard HCO3 9.1 mEq/L 22.0-26.0 Below low normal ABG Standard HCO3 [facility] ([facility]) ABG HCO3 5.3 mEq/L 22.0-26.0 Below low normal Abg Hco3 [facility] ( [facility]) ABG base excess -2.0-2.0 Below low normal ABG Base Exces s [facility] ([facility]) ABG O2 saturation 98.2 % 95.0-99.0 ABG O2 Saturation [facility] ([facility]) ID Date Data Source [id number] 12/10/2020 05:08:00 PM EST [facility] ([facility]) Name Value Range Interpretation Code Description Data Claribel rce(s) Supporting Document(s) ABG pH (arterial) 7.117 units 7.350-7.450 Below low normal ABG pH (Ar terial) [facility] ([facility]) ABG partial pressure CO2 16.7 mmHg 35.0-45.0 Below low normal ABG Partial Pressure CO2 [facility] ([facility]) ABG partial pressure O2 125.1 mmHg 75.0-100.0 Above high normal ABG Partial Pressure O2 [facility] ([facility]) ABG total CO2 5.8 mEq/L 22.0-29.0 Below low normal ABG Total CO2 AT [facility] ([facility]) ABG HCO3 5.3 mEq/L 22.0-26.0 Below low normal Abg Hco3 [facility] ( [facility]) ABG base excess -2.0-2.0 Below low normal ABG Base Exces s [facility] ([facility]) ABG standard HCO3 9.1 mEq/L 22.0-26.0 Below low normal ABG Standard HCO3 [facility] ([facility]) ABG O2 saturation 98.2 % 95.0-99.0 ABG O2 Saturation [facility] ([facility]) ID Date Data Source [id number] 12/10/2020 05:08:00 PM EST [facility] ([facility]) Name Value Range Interpretation Code Description Data Claribel rce(s) Supporting Document(s) ABG partial pressure CO2 16.7 mmHg 35.0-45.0 Below low normal ABG Partial Pressure CO2 [facility] ([facility]) ABG pH (arterial) 7.117 units 7.350-7.450 Below low normal ABG pH (Ar terial) [facility] ([facility]) ABG partial pressure O2 125.1 mmHg 75.0-100.0 Above high normal ABG Partial Pressure O2 [facility] ([facility]) ABG total CO2 5.8 mEq/L 22.0-29.0 Below low normal ABG Total CO2 AT [facility] ([facility]) ABG standard HCO3 9.1 mEq/L 22.0-26.0 Below low normal ABG Standard HCO3 [facility] ([facility]) ABG base excess -2.0-2.0 Below low normal ABG Base Exces s [facility] ([facility]) ABG HCO3 5.3 mEq/L 22.0-26.0 Below low normal Abg Hco3 [facility] ( [facility]) ABG O2 saturation 98.2 % 95.0-99.0 ABG O2 Saturation [facility] ([facility]) ID Date Data Source [id number] 12/10/2020 05:08:00 PM EST [facility] ([facility]) Name Value Range Interpretation Code Description Data Claribel rce(s) Supporting Document(s) ABG partial pressure O2 125.1 mmHg 75.0-100.0 Above high normal ABG Partial Pressure O2 [facility] ([facility]) ABG pH (arterial) 7.117 units 7.350-7.450 Below low normal ABG pH (Ar terial) [facility] ([facility]) ABG partial pressure CO2 16.7 mmHg 35.0-45.0 Below low normal ABG Partial Pressure CO2 [facility] ([facility]) ABG HCO3 5.3 mEq/L 22.0-26.0 Below low normal Abg Hco3 [facility] ( [facility]) ABG total CO2 5.8 mEq/L 22.0-29.0 Below low normal ABG Total CO2 AT [facility] ([facility]) ABG base excess -2.0-2.0 Below low normal ABG Base Exces s [facility] ([facility]) ABG standard HCO3 9.1 mEq/L 22.0-26.0 Below low normal ABG Standard HCO3 [facility] ([facility]) ABG O2 saturation 98.2 % 95.0-99.0 ABG O2 Saturation [facility] ([facility]) ID Date Data Source [id number] 12/10/2020 05:08:00 PM EST [facility] ([facility]) Name Value Range Interpretation Code Description Data Claribel rce(s) Supporting Document(s) ABG partial pressure CO2 16.7 mmHg 35.0-45.0 Below low normal ABG Partial Pressure CO2 [facility] ([facility]) ABG partial pressure O2 125.1 mmHg 75.0-100.0 Above high normal ABG Partial Pressure O2 [facility] ([facility]) ABG pH (arterial) 7.117 units 7.350-7.450 Below low normal ABG pH (Ar terial) [facility] ([facility]) ABG HCO3 5.3 mEq/L 22.0-26.0 Below low normal Abg Hco3 [facility] ( [facility]) ABG total CO2 5.8 mEq/L 22.0-29.0 Below low normal ABG Total CO2 AT [place] ([facility]) ABG base excess -2.0-2.0 Below low normal ABG Base Exces s [facility] ([facility]) ABG standard HCO3 9.1 mEq/L 22.0-26.0 Below low normal ABG Standard HCO3 [facility] ([facility]) ABG O2 saturation 98.2 % 95.0-99.0 ABG O2 Saturation [facility] ([facility]) ID Date Data Source [id number] 12/10/2020 02:24:00 PM EST CY[facility]I ([facility]) Name Value Range Interpretation Code Description Data Claribel rce(s) Supporting Document(s) istat B-HCG < 5.0 Istat B-HCG [facility] ([facility]) ID Date Data Source [id number] 12/10/2020 02:24:00 PM EST [facility] ([facility]) Name Value Range Interpretation Code Description Data Claribel rce(s) Supporting Document(s) istat B-HCG < 5.0 Istat B-HCG [facility] ([facility]) ID Date Data Source [id number] 12/10/2020 02:24:00 PM EST [facility] ([facility]) Name Value Range Interpretation Code Description Data Claribel rce(s) Supporting Document(s) istat B-HCG < 5.0 Istat B-HCG [facility] ([facility]) ID Date Data Source [id number] 12/10/2020 02:24:00 PM EST [facility] ([facility]) Name Value Range Interpretation Code Description Data Claribel rce(s) Supporting Document(s) istat B-HCG < 5.0 Istat B-HCG [facility] ([facility]) ID Date Data Source [id number] 12/10/2020 02:24:00 PM EST [facility] ([facility]) Name Value Range Interpretation Code Description Data Claribel rce(s) Supporting Document(s) istat B-HCG < 5.0 Istat B-HCG [facility] ([facility]) ID Date Data Source [id number] 12/10/2020 02:24:00 PM EST [facility] ([facility]) Name Value Range Interpretation Code Description Data Claribel rce(s) Supporting Document(s) istat B-HCG < 5.0 Istat B-HCG [facility] ([facility]) ID Date Data Source [id number] 12/10/2020 02:21:00 PM EST [facility] ([facility]) Name Value Range Interpretation Code Description Data Claribel rce(s) Supporting Document(s) istat HCT 46.0 % 38.0-51.0 Istat HCT [facility] ([facility]) istat sodium 136 mEq/L 136-145 Istat Sodium [facility] ([facility]) istat glucose 290 mg/dL 70-105 Above high normal Istat Glucose A [facility] ([facility]) istat potassium 4.8 mEq/L 3.5-5.1 Istat Potassium ATHE [facility] ([facility]) istat Ca++ 5.6 mg/dL 4.5-5.3 Above high normal Istat Ca++ [facility] ([facility]) istat CO2 12.0 mm/L 23.0-27.0 Below low normal Istat CO2 [facility] ( [facility]) istat chloride 109 mEq/L 98-109 Istat Chloride [facility] ([facility]) istat BUN 25 mg/dL 8-26 Istat BUN [facility] ([facility]) istat creatinine 1.1 mg/dL 0.6-1.3 Istat Creatinine AT [facility]) ID Date Data Source [id number] 12/10/2020 02:21:00 PM EST [facility] ([facility]) Name Value Range Interpretation Code Description Data Claribel rce(s) Supporting Document(s) istat HCT 46.0 % 38.0-51.0 Istat HCT [facility] ([facility]) istat glucose 290 mg/dL 70-105 Above high normal Istat Glucose A [facility] ([facility]) istat sodium 136 mEq/L 136-145 Istat Sodium [facility] ([facility]) istat chloride 109 mEq/L 98-109 Istat Chloride [facility] ([facility]) istat potassium 4.8 mEq/L 3.5-5.1 Istat Potassium ATHE NA ([facility]) istat Ca++ 5.6 mg/dL 4.5-5.3 Above high normal Istat Ca++ [facility] ([facility]) istat BUN 25 mg/dL 8-26 Istat BUN [facility] ([facility]) istat CO2 12.0 mm/L 23.0-27.0 Below low normal Istat CO2 [facility] ( [facility]) istat creatinine 1.1 mg/dL 0.6-1.3 Istat Creatinine AT [facility]) ID Date Data Source [id number] 12/10/2020 02:21:00 PM EST [facility] ([facility]) Name Value Range Interpretation Code Description Data Claribel rce(s) Supporting Document(s) istat HCT 46.0 % 38.0-51.0 Istat HCT [facility] ([facility]) istat glucose 290 mg/dL 70-105 Above high normal Istat Glucose A [place] ([facility]) istat sodium 136 mEq/L 136-145 Istat Sodium [facility] ([facility]) istat potassium 4.8 mEq/L 3.5-5.1 Istat Potassium ATHE NA ([facility]) istat Ca++ 5.6 mg/dL 4.5-5.3 Above high normal Istat Ca++ [facility] ([facility]) istat CO2 12.0 mm/L 23.0-27.0 Below low normal Istat CO2 [facility] ( [facility]) istat chloride 109 mEq/L 98-109 Istat Chloride [facility] ([facility]) istat BUN 25 mg/dL 8-26 Istat BUN [facility] ([facility]) istat creatinine 1.1 mg/dL 0.6-1.3 Istat Creatinine AT [place] ([facility]) ID Date Data Source [id number] 12/10/2020 02:21:00 PM EST [facility] ([facility]) Name Value Range Interpretation Code Description Data Claribel rce(s) Supporting Document(s) istat HCT 46.0 % 38.0-51.0 Istat HCT [facility] ([facility]) istat glucose 290 mg/dL 70-105 Above high normal Istat Glucose A [place] ([facility]) istat Ca++ 5.6 mg/dL 4.5-5.3 Above high normal Istat Ca++ [facility] ([facility]) istat sodium 136 mEq/L 136-145 Istat Sodium [facility] ([facility]) istat potassium 4.8 mEq/L 3.5-5.1 Istat Potassium ATHE NA ([facility]) istat CO2 12.0 mm/L 23.0-27.0 Below low normal Istat CO2 [facility] ( [facility]) istat chloride 109 mEq/L 98-109 Istat Chloride [facility] ([facility]) istat creatinine 1.1 mg/dL 0.6-1.3 Istat Creatinine AT [facility] ([facility]) istat BUN 25 mg/dL 8-26 Istat BUN [facility] ([facility]) ID Date Data Source [id number] 12/10/2020 02:21:00 PM EST [facility] ([facility]) Name Value Range Interpretation Code Description Data Claribel rce(s) Supporting Document(s) istat glucose 290 mg/dL 70-105 Above high normal Istat Glucose A [facility] ([facility]) istat HCT 46.0 % 38.0-51.0 Istat HCT [facility] ([facility]) istat sodium 136 mEq/L 136-145 Istat Sodium [facility] ([facility]) istat potassium 4.8 mEq/L 3.5-5.1 Istat Potassium ATHE NA ([facility]) istat CO2 12.0 mm/L 23.0-27.0 Below low normal Istat CO2 [facility] ( [facility]) istat chloride 109 mEq/L 98-109 Istat Chloride [facility] ([facility]) istat Ca++ 5.6 mg/dL 4.5-5.3 Above high normal Istat Ca++ [facility] ([facility]) istat BUN 25 mg/dL 8-26 Istat BUN [facility] ([facility]) istat creatinine 1.1 mg/dL 0.6-1.3 Istat Creatinine AT [facility]) ID Date Data Source [id number] 12/10/2020 02:21:00 PM EST [facility] ([facility]) Name Value Range Interpretation Code Description Data Claribel rce(s) Supporting Document(s) istat glucose 290 mg/dL 70-105 Above high normal Istat Glucose A [facility] ([facility]) istat HCT 46.0 % 38.0-51.0 Istat HCT [facility] ([facility]) istat potassium 4.8 mEq/L 3.5-5.1 Istat Potassium ATHE NA ([facility]) istat sodium 136 mEq/L 136-145 Istat Sodium [facility] ([facility]) istat CO2 12.0 mm/L 23.0-27.0 Below low normal Istat CO2 [facility] ( [facility]) istat chloride 109 mEq/L 98-109 Istat Chloride [facility] ([facility]) istat Ca++ 5.6 mg/dL 4.5-5.3 Above high normal Istat Ca++ [facility] ([facility]) istat creatinine 1.1 mg/dL 0.6-1.3 Istat Creatinine AT [facility]) istat BUN 25 mg/dL 8-26 Istat BUN [facility] ([facility]) ID Date Data Source [id number] 12/10/2020 01:34:00 PM EST [facility]) Name Value Range Interpretation Code Description Data Claribel rce(s) Supporting Document(s) ID Date Data Source [id number] 12/10/2020 01:34:00 PM EST [place] ([facility]) Name Value Range Interpretation Code Description Data Claribel rce(s) Supporting Document(s) appearance, urine rfx hazy clear Appearance, Ur ine Rfx [facility] ([facility]) pH,urine rfx 5.0 units 5.0-9.0 pH,urine Rfx [facility] ([facility]) color, urine rfx yellow yellow Color, Urine Rfx AT [facility]) protein, urine auto rfx 3+ negative Above high normal Prote in, Urine Auto Rfx [facility] ([facility]) specific gravity ur auto rfx 1.002-1.035 Specif ic [place] Ur Auto Rfx [facility] ([facility]) glucose, urine (UA) auto rfx 3+ negative Above high n ormal Glucose, Urine (UA) Auto Rfx [facility] ([facility]) ketone, urine auto rfx 2+ negative Above high normal Ketone , Urine Auto Rfx [facility] ([facility]) urobilinogen, urine auto rfx 0.2 mg/dL 0.0-2.0 Urobili nogen, Urine Auto Rfx [facility] ([facility]) bilirubin, urine auto rfx negative negative Bilirubin, Urine Auto Rfx [facility] ([facility]) leukocyte esterase ur auto rfx 2+ negative Above high normal Leukocyte Esterase Ur Auto Rfx [facility] ([facility]) nitrite, urine auto rfx negative negative Nitrite, Uri ne Auto Rfx [facility] ([facility]) WBC, urine auto rfx 16 /hpf 0-3 Above high normal WBC, Urin e Auto Rfx [facility] ([facility]) blood, urine blood rfx 2+ negative Above high normal Blood, Urine Blood Rfx [facility] ([facility]) bacteria, urine auto rfx 1+ negative Above high normal Bact eria, Urine Auto Rfx [facility] ([facility]) RBC, urine auto rfx 7 /hpf 0-3 Above high normal RBC, Urin e Auto Rfx [facility] ([facility]) mucus, urine rfx small negative Mucus, Urine Rfx AT [facility] ([facility]) squam epithelial cell ur aurfx 1 /hpf 0-6 Squam Epithelial Cell Ur Aurfx [facility] ([facility]) hyaline cast, urine auto rfx 0 /lpf 0-1 Hyaline Cast, Urine Auto Rfx [facility] ([facility]) ID Date Data Source [id number] 12/10/2020 01:34:00 PM EST [facility] ([facility]) Name Value Range Interpretation Code Description Data Claribel rce(s) Supporting Document(s) ID Date Data Source [id number] 12/10/2020 01:34:00 PM EST [facility] ([facility]) Name Value Range Interpretation Code Description Data Claribel rce(s) Supporting Document(s) appearance, urine rfx hazy clear Appearance, Ur ine Rfx [facility] ([facility]) color, urine rfx yellow yellow Color, Urine Rfx AT [place] ([facility]) specific gravity ur auto rfx 1.002-1.035 Specif ic [place] Ur Auto Rfx [facility] ([facility]) pH,urine rfx 5.0 units 5.0-9.0 pH,urine Rfx [facility] ([facility]) protein, urine auto rfx 3+ negative Above high normal Prote in, Urine Auto Rfx [place] ([facility]) glucose, urine (UA) auto rfx 3+ negative Above high n ormal Glucose, Urine (UA) Auto Rfx [place] ([facility]) ketone, urine auto rfx 2+ negative Above high normal Ketone , Urine Auto Rfx [place] ([facility]) nitrite, urine auto rfx negative negative Nitrite, Uri ne Auto Rfx [place] ([facility]) bilirubin, urine auto rfx negative negative Bilirubin, Urine Auto Rfx [place] ([facility]) urobilinogen, urine auto rfx 0.2 mg/dL 0.0-2.0 Urobili nogen, Urine Auto Rfx [place] ([facility]) blood, urine blood rfx 2+ negative Above high normal Blood, Urine Blood Rfx [place] ([facility]) leukocyte esterase ur auto rfx 2+ negative Above high normal Leukocyte Esterase Ur Auto Rfx [place] ([facility]) WBC, urine auto rfx 16 /hpf 0-3 Above high normal WBC, Urin e Auto Rfx [place] ([facility]) RBC, urine auto rfx 7 /hpf 0-3 Above high normal RBC, Urin e Auto Rfx [place] ([facility]) bacteria, urine auto rfx 1+ negative Above high normal Bact eria, Urine Auto Rfx [place] ([facility]) squam epithelial cell ur aurfx 1 /hpf 0-6 Squam Epithelial Cell Ur Aurfx [place] ([facility]) mucus, urine rfx small negative Mucus, Urine Rfx AT [facility] ([facility]) hyaline cast, urine auto rfx 0 /lpf 0-1 Hyaline Cast, Urine Auto Rfx [place] ([facility]) ID Date Data Source [id number] 12/10/2020 01:34:00 PM EST [facility] ([facility]) Name Value Range Interpretation Code Description Data Claribel rce(s) Supporting Document(s) ID Date Data Source [id number] 12/10/2020 01:34:00 PM EST [facility] ([facility]) Name Value Range Interpretation Code Description Data Claribel rce(s) Supporting Document(s) appearance, urine rfx hazy clear Appearance, Ur ine Rfx [place] ([facility]) color, urine rfx yellow yellow Color, Urine Rfx AT [facility] ([facility]) pH,urine rfx 5.0 units 5.0-9.0 pH,urine Rfx [place] ([facility]) glucose, urine (UA) auto rfx 3+ negative Above high n ormal Glucose, Urine (UA) Auto Rfx [place] ([facility]) specific gravity ur auto rfx 1.002-1.035 Specif ic Meldrim Ur Auto Rfx [place] ([facility]) protein, urine auto rfx 3+ negative Above high normal Prote in, Urine Auto Rfx [place] ([facility]) ketone, urine auto rfx 2+ negative Above high normal Ketone , Urine Auto Rfx [place] ([facility]) urobilinogen, urine auto rfx 0.2 mg/dL 0.0-2.0 Urobili nogen, Urine Auto Rfx [place] ([facility]) bilirubin, urine auto rfx negative negative Bilirubin, Urine Auto Rfx [place] ([facility]) nitrite, urine auto rfx negative negative Nitrite, Uri ne Auto Rfx [place] ([facility]) leukocyte esterase ur auto rfx 2+ negative Above high normal Leukocyte Esterase Ur Auto Rfx [place] ([facility]) blood, urine blood rfx 2+ negative Above high normal Blood, Urine Blood Rfx [place] ([facility]) RBC, urine auto rfx 7 /hpf 0-3 Above high normal RBC, Urin e Auto Rfx [place] ([facility]) WBC, urine auto rfx 16 /hpf 0-3 Above high normal WBC, Urin e Auto Rfx [place] ([facility]) bacteria, urine auto rfx 1+ negative Above high normal Bact eria, Urine Auto Rfx [place] ([facility]) squam epithelial cell ur aurfx 1 /hpf 0-6 Squam Epithelial Cell Ur Aurfx [place] ([facility]) mucus, urine rfx small negative Mucus, Urine Rfx AT [facility] ([facility]) hyaline cast, urine auto rfx 0 /lpf 0-1 Hyaline Cast, Urine Auto Rfx [place] ([facility]) ID Date Data Source [id number] 12/10/2020 01:34:00 PM EST [place] ([facility]) Name Value Range Interpretation Code Description Data Claribel rce(s) Supporting Document(s) ID Date Data Source [id number] 12/10/2020 01:34:00 PM EST [place] ([facility]) Name Value Range Interpretation Code Description Data Claribel rce(s) Supporting Document(s) appearance, urine rfx hazy clear Appearance, Ur ine Rfx [place] ([facility]) pH,urine rfx 5.0 units 5.0-9.0 pH,urine Rfx [facility] ([facility]) color, urine rfx yellow yellow Color, Urine Rfx AT [facility] ([facility]) glucose, urine (UA) auto rfx 3+ negative Above high n ormal Glucose, Urine (UA) Auto Rfx [place] ([facility]) protein, urine auto rfx 3+ negative Above high normal Prote in, Urine Auto Rfx [place] ([facility]) specific gravity ur auto rfx 1.002-1.035 Specif ic Meldrim Ur Auto Rfx [place] ([facility]) urobilinogen, urine auto rfx 0.2 mg/dL 0.0-2.0 Urobili nogen, Urine Auto Rfx [place] ([facility]) ketone, urine auto rfx 2+ negative Above high normal Ketone , Urine Auto Rfx [place] ([facility]) nitrite, urine auto rfx negative negative Nitrite, Uri ne Auto Rfx [place] ([facility]) bilirubin, urine auto rfx negative negative Bilirubin, Urine Auto Rfx [place] ([facility]) leukocyte esterase ur auto rfx 2+ negative Above high normal Leukocyte Esterase Ur Auto Rfx [place] ([facility]) RBC, urine auto rfx 7 /hpf 0-3 Above high normal RBC, Urin e Auto Rfx [place] ([facility]) WBC, urine auto rfx 16 /hpf 0-3 Above high normal WBC, Urin e Auto Rfx [place] ([facility]) blood, urine blood rfx 2+ negative Above high normal Blood, Urine Blood Rfx [place] ([facility]) bacteria, urine auto rfx 1+ negative Above high normal Bact eria, Urine Auto Rfx [place] ([facility]) squam epithelial cell ur aurfx 1 /hpf 0-6 Squam Epithelial Cell Ur Aurfx [facility] ([facility]) hyaline cast, urine auto rfx 0 /lpf 0-1 Hyaline Cast, Urine Auto Rfx [place] ([facility]) mucus, urine rfx small negative Mucus, Urine Rfx AT [place] ([facility]) ID Date Data Source [id number] 12/10/2020 01:34:00 PM EST [place] ([facility]) Name Value Range Interpretation Code Description Data Claribel rce(s) Supporting Document(s) ID Date Data Source [id number] 12/10/2020 01:34:00 PM EST [place] ([facility]) Name Value Range Interpretation Code Description Data Claribel rce(s) Supporting Document(s) appearance, urine rfx hazy clear Appearance, Ur ine Rfx [facility] ([facility]) color, urine rfx yellow yellow Color, Urine Rfx AT [facility] ([facility]) specific gravity ur auto rfx 1.002-1.035 Specif ic [place]rim Ur Auto Rfx [facility] ([facility]) pH,urine rfx 5.0 units 5.0-9.0 pH,urine Rfx [place] ([facility]) protein, urine auto rfx 3+ negative Above high normal Prote in, Urine Auto Rfx [place] ([facility]) glucose, urine (UA) auto rfx 3+ negative Above high n ormal Glucose, Urine (UA) Auto Rfx [place] ([facility]) urobilinogen, urine auto rfx 0.2 mg/dL 0.0-2.0 Urobili nogen, Urine Auto Rfx [place] ([facility]) ketone, urine auto rfx 2+ negative Above high normal Ketone , Urine Auto Rfx [place] ([facility]) leukocyte esterase ur auto rfx 2+ negative Above high normal Leukocyte Esterase Ur Auto Rfx [place] ([facility]) bilirubin, urine auto rfx negative negative Bilirubin, Urine Auto Rfx [place] ([facility]) nitrite, urine auto rfx negative negative Nitrite, Uri ne Auto Rfx [place] ([facility]) WBC, urine auto rfx 16 /hpf 0-3 Above high normal WBC, Urin e Auto Rfx [place] ([facility]) blood, urine blood rfx 2+ negative Above high normal Blood, Urine Blood Rfx [place] ([facility]) bacteria, urine auto rfx 1+ negative Above high normal Bact eria, Urine Auto Rfx [place] ([facility]) RBC, urine auto rfx 7 /hpf 0-3 Above high normal RBC, Urin e Auto Rfx [place] ([facility]) squam epithelial cell ur aurfx 1 /hpf 0-6 Squam Epithelial Cell Ur Aurfx [place] ([facility]) mucus, urine rfx small negative Mucus, Urine Rfx AT [facility] ([facility]) hyaline cast, urine auto rfx 0 /lpf 0-1 Hyaline Cast, Urine Auto Rfx [place] ([facility]) ID Date Data Source [id number] 12/10/2020 01:34:00 PM [place] ([facility]) Name Value Range Interpretation Code Description Data Claribel rce(s) Supporting Document(s) ID Date Data Source [id number] 12/10/2020 01:34:00 PM [place] ([facility]) Name Value Range Interpretation Code Description Data Claribel rce(s) Supporting Document(s) appearance, urine rfx hazy clear Appearance, Ur ine Rfx [place] ([facility]) color, urine rfx yellow yellow Color, Urine Rfx AT [facility] ([facility]) protein, urine auto rfx 3+ negative Above high normal Prote in, Urine Auto Rfx [place] ([facility]) specific gravity ur auto rfx 1.002-1.035 Specif ic [place] Ur Auto Rfx [place] ([facility]) pH,urine rfx 5.0 units 5.0-9.0 pH,urine Rfx [place] ([facility]) glucose, urine (UA) auto rfx 3+ negative Above high n ormal Glucose, Urine (UA) Auto Rfx [place] ([facility]) ketone, urine auto rfx 2+ negative Above high normal Ketone , Urine Auto Rfx [place] ([facility]) nitrite, urine auto rfx negative negative Nitrite, Uri ne Auto Rfx [place] ([facility]) urobilinogen, urine auto rfx 0.2 mg/dL 0.0-2.0 Urobili nogen, Urine Auto Rfx [place] ([facility]) bilirubin, urine auto rfx negative negative Bilirubin, Urine Auto Rfx [place] ([facility]) leukocyte esterase ur auto rfx 2+ negative Above high normal Leukocyte Esterase Ur Auto Rfx [place] ([facility]) blood, urine blood rfx 2+ negative Above high normal Blood, Urine Blood Rfx [place] ([facility]) WBC, urine auto rfx 16 /hpf 0-3 Above high normal WBC, Urin e Auto Rfx [place] ([facility]) RBC, urine auto rfx 7 /hpf 0-3 Above high normal RBC, Urin e Auto Rfx [place] ([facility]) bacteria, urine auto rfx 1+ negative Above high normal Bact eria, Urine Auto Rfx [place] ([facility]) hyaline cast, urine auto rfx 0 /lpf 0-1 Hyaline Cast, Urine Auto Rfx [place] ([facility]) mucus, urine rfx small negative Mucus, Urine Rfx AT [facility] ([facility]) squam epithelial cell ur aurfx 1 /hpf 0-6 Squam Epithelial Cell Ur Aurfx [place] ([facility]) ID Date Data Source [id number] 12/10/2020 01:04:00 PM EST [facility] ([facility]) Name Value Range Interpretation Code Description Data Claribel rce(s) Supporting Document(s) bedside glucose 256 mg/dL 70-105 Above high normal Bedside Gluco se [facility] ([facility]) ID Date Data Source [id number] 12/10/2020 01:04:00 PM EST [place] ([facility]) Name Value Range Interpretation Code Description Data Claribel rce(s) Supporting Document(s) bedside glucose 256 mg/dL 70-105 Above high normal Bedside Gluco se [place] ([facility]) ID Date Data Source [id number] 12/10/2020 01:04:00 PM EST [place] ([facility]) Name Value Range Interpretation Code Description Data Claribel rce(s) Supporting Document(s) bedside glucose 256 mg/dL 70-105 Above high normal Bedside Gluco se [place] ([facility]) ID Date Data Source [id number] 12/10/2020 01:04:00 PM EST [place] ([facility]) Name Value Range Interpretation Code Description Data Claribel rce(s) Supporting Document(s) bedside glucose 256 mg/dL 70-105 Above high normal Bedside Gluco se [facility] ([facility]) ID Date Data Source [id number] 12/10/2020 01:04:00 PM EST [place] ([facility]) Name Value Range Interpretation Code Description Data Claribel rce(s) Supporting Document(s) bedside glucose 256 mg/dL 70-105 Above high normal Bedside Gluco se [facility] ([facility]) ID Date Data Source [id number] 10/01/2020 12:00:00 AM EST [place] Name Value Range Interpretation Code Description Data Claribel rce(s) Supporting Document(s) SARS coronavirus 2 RNA [Presence] in Res piratory specimen by ANDREE with probe detection [facility] This lab was ordered by Nell Yates and reported by [employer]. ID Date Data Source [id number] 08/19/2020 10:29:50 AM EDT Health system Name Value Range Interpretation Code Description Data Claribel rce(s) Supporting Document(s) Progress Note [facility] MAOORd5tYhWYXaGw48/HTObaZKRfw3JzHNgtNKb8ZNdtFCHyD4DlUOK5hH1jCFC3UGpABcIkPmSwUTY9 m [file] supervisor beet end/ckBCC7XdxtxbjpUPQfflI6U/OMy3PaHZ3f98ymQ eRs0/sc/RQh3R4bJb1ttxD0eL+8hyWgexbPGr3RvXYwanWm0OUGioidDVG8NOopI8qjtSkS4BNHQ51xk Xd5YDhacTYm2Ey818FZAd2HXguHE3IFKhxA2nbqj2bDzFmykW4Bk/uqMxF9y6tcW/pu0XomrbM5QvLMa Eh/BIn9jxVfqSfh0tk5m9xokplcDsaAQ1wBl6HJP8W m6nH9A4hlylnGpU0wh//eez49BTFE31wfelbN44n8HjsSk6iYZt6EcvE8S26eGIDnbK28VZc4L5emF3H qLeF4TaAOzrvjgCAmGfKBl402Z4Oy4UNFlwAQa3W3RIQx3odYX6qCij79+mscvAWndVboClsfQUvqMXf OEY5gUADlsNPz67Fbgs3N823l6wcDXCuwGnygSt23d ikgskNHoq9mpk8SpCIbjHdDudaoabGpPRvubdZrzxf5gstjPhUbp6na78QsYpKizMEj9fJtDyWQSjva4 Ce1AmhDos3u5Zx08cNHiEDL1fT1f/9Keo3VSUGF76ta4t3jw6CnmZTg6M5jBJ6Nqv+kvQqSv+fx8eeSX /BjE0jIeJJIC9/NcWr+PNovCxNdz+G0wRfIC46iR5Y 75NNDkD1P05fk2TGC9S2qaqeRsdR/akmJmzPxk0X4OwGMnyZBMUYgoxUGeuEOEnmjTj4E6ltPsIzuJR+ 4zM3LK5K3onsBav+LVb8+brq+2uhuCm/Pq9G1+fELEK4D3t/AfM9+fg/Vm0jcF2ZAY8lh7TzETBqXKrf bmRvYmoNCjcgMCBvYmoNCiAgPDwNCiAgICAvVHlwZS [file] y/sUZcG/ZZD7oX8VgudG1QSlski9wGTf/wb+Wi [file] I2SBC4nVQvPb6ORBRyBPSADbCnAE4GHQv= Procedure Social History Code Duration Value Status Description Data Source(s ) Smoking 03/26/2021 12:00:00 AM EDT Patient has never smoked co mpleted Patient has never smoked [facility] ([facility]) Alcohol intake 02/20/2021 12:00:00 AM EDT Current non-d clyde of alcohol (finding) completed Current non-drinker of alcohol (finding) [facility] Tobacco use and exposure 02/20/2021 12:00:00 AM EDT Never used co mpleted Never used [facility] Smoking 02/20/2021 12:00:00 AM EDT Never smoker completed Never s waker [facility] Alcohol intake 08/19/2020 12:00:00 AM EDT Current non-d clyde of alcohol (finding) completed Current non-drinker of alcohol (finding) [facility] Vital Signs ID Date Data Source [id number] Name Value Range Interpretation Code Description Data Source(s) Diastolic blood pressure 73 mm[Hg] 73 mm[Hg] [facility]) Body height 64 [in_i] 64 [in_i] [facility] ([facility]) Body mass index (BMI) [Ratio] 26 kg/m2 26 kg/ m2 [place] ([facility]) Systolic blood pressure 105 mm[Hg] 105 mm[Hg] [place] ([facility]) Body weight 2420 [oz_av] 2420 [oz_av] [facility] ([facility]) Body height 64 [in_i] 64 [in_i] [facility] ([facility]) Body height 64 [in_i] 64 [in_i] [facility] ([facility]) Diastolic blood pressure 81 mm[Hg] 81 mm[Hg] [facility] ([facility]) Body height 64 [in_i] 64 [facility]i] [facility] Body mass index (BMI) [Ratio] 25.2 kg/m2 25.2 k g/m2 [facility] ([facility]) Systolic blood pressure 112 mm[Hg] 112 mm[Hg] [place] ([facility]) Body weight 2352 [oz_av] 2352 [oz_av] [facility] ([facility]) Diastolic blood pressure 81 mm[Hg] 81 mm[Hg] [facility] ([facility]) Body height 64 [in_i] 64 [in_i] [facility] ([facility]) Body mass index (BMI) [Ratio] 25.2 kg/m2 25.2 k g/m2 [facility] ([facility]) Systolic blood pressure 112 mm[Hg] 112 mm[Hg] A [place] ([facility]) Body weight 2352 [oz_av] 2352 [oz_av] CY[facility]I ([facility]) Diastolic blood pressure 81 mm[Hg] 81 mm[Hg] [facility] ([facility]) Body height 64 [in_i] 64 [in_i] [facility] ([facility]) Body mass index (BMI) [Ratio] 25.2 kg/m2 25.2 k g/m2 [facility] ([facility]) Systolic blood pressure 112 mm[Hg] 112 mm[Hg] A [place] ([facility]) Body weight 2352 [oz_av] 2352 [oz_av] [facility] ([facility]) Systolic blood pressure 138 mm[Hg] 138 mm[Hg] M EDENT ([facility], [facility]) Body temperature 98.2 [degF] 98.2 [degF] [facility] ([facility], [facility]) Respiratory rate 18 /min 18 /min [facility] ( [facility], [facility]) Diastolic blood pressure 91 mm[Hg] 91 mm[Hg] [facility] ([facility], [facility]) Body weight 146.00 [lb_av] 146.00 [lb_av] MEDEN T ([facility], [facility]) Body height 64 [in_i] 64 [in_i] MED[facility] ([facility]) 5'4" Body mass index (BMI) [Ratio] 25.1 kg/m2 25.1 k g/m2 [facility] ([facility], [facility]) Heart rate 103 /min 103 /min MED[facility] ([facility], [facility]) Oxygen saturation in Arterial blood by Pulse oximetry 97 % 97 % MEDMAMADOU [facility]) Body mass index (BMI) [Ratio] 26.1 kg/m2 26.1 k g/m2 [facility] ([facility]) Body height 64 [in_i] 64 [in_i] [facility] ([facility]) Diastolic blood pressure 92 mm[Hg] 92 mm[Hg] [facility] ([facility]) Systolic blood pressure 134 mm[Hg] 134 mm[Hg] A [place] ([facility]) Body weight 2432 [oz_av] 2432 [oz_av] [facility] ([facility]) Body weight 2432 [oz_av] 2432 [oz_av] [facility] ([facility]) Diastolic blood pressure 92 mm[Hg] 92 mm[Hg] [facility] ([facility]) Body height 64 [in_i] 64 [in_i] [facility] ([facility]) Body mass index (BMI) [Ratio] 26.1 kg/m2 26.1 k g/m2 [facility] ([facility]) Systolic blood pressure 134 mm[Hg] 134 mm[Hg] [facility] Diastolic blood pressure 92 mm[Hg] 92 mm[Hg] [facility] ([facility]) Body height 64 [in_i] 64 [in_i] [facility] ([facility]) Body mass index (BMI) [Ratio] 26.1 kg/m2 26.1 k g/m2 [facility] ([facility]) Systolic blood pressure 134 mm[Hg] 134 mm[Hg] A [place] ([facility]) Body weight 2432 [oz_av] 2432 [oz_av] [facility] ([facility]) Diastolic blood pressure 92 mm[Hg] 92 mm[Hg] [facility] ([facility]) Body height 64 [in_i] 64 [in_i] [facility] ([facility]) Body mass index (BMI) [Ratio] 26.1 kg/m2 26.1 k g/m2 [facility] ([facility]) Systolic blood pressure 134 mm[Hg] 134 mm[Hg] A [place] ([facility]) Body weight 2432 [oz_av] 2432 [oz_av] [facility] ([facility]) Diastolic blood pressure 92 mm[Hg] 92 mm[Hg] [facility] ([facility]) Body height 64 [in_i] 64 [in_i] [facility] ([facility]) Body mass index (BMI) [Ratio] 26.1 kg/m2 26.1 k g/m2 [facility] ([facility]) Systolic blood pressure 134 mm[Hg] 134 mm[Hg] [facility] Body weight 2432 [oz_av] 2432 [oz_av] [facility] ([facility]) Diastolic blood pressure 92 mm[Hg] 92 mm[Hg] [facility] ([facility]) Body height 64 [in_i] 64 [in_i] [facility] ([facility]) Body mass index (BMI) [Ratio] 26.1 kg/m2 26.1 k g/m2 [facility] ([facility]) Systolic blood pressure 134 mm[Hg] 134 mm[Hg] [facility] Body weight 2432 [oz_av] 2432 [oz_av] [facility] ([facility]) Diastolic blood pressure 66 mm[Hg] 66 mm[Hg] [facility] ([facility]) Body height 64 [in_i] 64 [in_i] [facility] ([facility]) Body mass index (BMI) [Ratio] 25.2 kg/m2 25.2 k g/m2 [facility] ([facility]) Systolic blood pressure 105 mm[Hg] 105 mm[Hg] A [place] ([facility]) Body weight 2352 [oz_av] 2352 [oz_av] [facility] ([facility]) Diastolic blood pressure 66 mm[Hg] 66 mm[Hg] [facility] ([facility]) Body height 64 [in_i] 64 [in_i] [facility] ([facility]) Body mass index (BMI) [Ratio] 25.2 kg/m2 25.2 k g/m2 [facility] ([facility]) Systolic blood pressure 105 mm[Hg] 105 mm[Hg] [facility] Body weight 2352 [oz_av] 2352 [oz_av] [facility] ([facility]) Diastolic blood pressure 66 mm[Hg] 66 mm[Hg] [facility] ([facility]) Body height 64 [in_i] 64 [in_i] [facility] ([facility]) Body mass index (BMI) [Ratio] 25.2 kg/m2 25.2 k g/m2 [facility] ([facility]) Systolic blood pressure 105 mm[Hg] 105 mm[Hg] [facility] Body weight 2352 [oz_av] 2352 [oz_av] [facility] ([facility]) Diastolic blood pressure 66 mm[Hg] 66 mm[Hg] [facility] ([facility]) Body height 64 [in_i] 64 [in_i] [facility] ([facility]) Body mass index (BMI) [Ratio] 25.2 kg/m2 25.2 k g/m2 [facility] ([facility]) Systolic blood pressure 105 mm[Hg] 105 mm[Hg] [facility] Body weight 2352 [oz_av] 2352 [oz_av] [facility] ([facility]) Diastolic blood pressure 66 mm[Hg] 66 mm[Hg] CYNDI ([facility]) Body height 64 [in_i] 64 [in_i] CYNDI ([facility]) Body mass index (BMI) [Ratio] 25.2 kg/m2 25.2 k g/m2 CYNDI ([facility]) Systolic blood pressure 105 mm[Hg] 105 mm[Hg] A THENA ([facility]) Body weight 2352 [oz_av] 2352 [oz_av] CYNDI ([facility]) Diastolic blood pressure 66 mm[Hg] 66 mm[Hg] CYNDI ([facility]) Body height 64 [in_i] 64 [in_i] CYNDI ([facility]) Body mass index (BMI) [Ratio] 25.2 kg/m2 25.2 k g/m2 CYNDI ([facility]) Systolic blood pressure 105 mm[Hg] 105 mm[Hg] A THENA ([facility]) Body weight 2352 [oz_av] 2352 [oz_av] CYNDI ([facility]) Body weight 2352 [oz_av] 2352 [oz_av] CYNDI ([facility]) Diastolic blood pressure 66 mm[Hg] 66 mm[Hg] CYNDI ([facility]) Body height 64 [in_i] 64 [in_i] CYNDI ([facility]) Body mass index (BMI) [Ratio] 25.2 kg/m2 25.2 k g/m2 CYNDI ([facility]) Systolic blood pressure 105 mm[Hg] 105 mm[Hg] A THENA ([facility]) ID Date Data Source [id number] 08/19/2020 10:38:[address] [facility] Name Value Range Interpretation Code Description Data Source(s) WEIGHT RECORDED 155 lb 155 lb [facility] Body height Measured 64.5 in 64.5 in [facility] Patient Treatment Plan of Care Planned Activity Planned Date Details Description Data Source (s) OneTouch Ultra In Vitro Strip 05/28/2021 12:00:00 AM [facility] Tresiba FlexTouch 100 UNIT/ML Subcutaneo us Solution Pen-injector (insulin degludec) 05/28/2021 12:00:00 AM [facility] Baqsimi One Pack 3 MG/DOSE Nasal Powder (Glucagon) 05/28/2021 12 :00:00 AM [facility] Insulin Pen Needle 31G X 6 MM 02/20/2021 12:00:00 AM [facility] Insulin, Aspart, Human 100 UNT/ML Injectable Solution 02/05/2021 12:00:00 AM [facility] ospital OneTouch Ultra In Vitro Strip 11/03/2020 12:00:00 AM [facility] Insulin Syringe 31G X 5/16" 1 ML 09/19/2020 12:00:00 AM [facility] Adhesive Remover Wipes XL 07/02/2020 12:00:00 AM [facility] Dexcom G6 Clinical Recruiter Device 07/02/2020 12:00:00 AM [facility] Dexcom G6 Sensor 07/02/2020 12:00:00 AM [facility] Dexcom G6 Transmitter 07/02/2020 12:00:00 AM [facility] Tegaderm Film 4"x4-3/4" 07/02/2020 12:00:00 AM [facility] Insulin Degludec 100 UNIT/ML Subcutaneou s Solution Pen-injector (Tresiba FlexTouch) 04/01/2020 12:00:00 AM [facility] Ergocalciferol 91300 UNT Oral Capsule 11/23/2019 12:00:00 AM [facility] Glucagon 3 MG/DOSE Nasal Powder (BAQSIMI ONE PACK) 10/29/2019 12 :00:00 AM [facility] Glucagon 1 MG Injection 10/11/2018 12:00:00 AM [facility] Unifine Pentips 31 gauge x 1/4" needle U SE DIRECTED WITH TRESIBA AND NOVOLOG PENS UP TO 6 TIMES DAILY ARMSTRONG ([facility]) Prednisone 20 MG Oral Tablet ARMSTRONG ([facility]) Phosphorous Supplement 280 mg-160 mg-250 mg oral powder packet MIX 1 PACKET AND DRINK THREE TIMES DAILY ARMSTRONG ( [facility]) OneTouch Ultra Test strips USE INSTRUCTED 6 TIMES DAILY TO CH SUZANNA SUGARS CYNDI ([facility]) OneTouch Ultra Blue Test Strip USE TO CHECK BLOOD GLUCOSE 6 TIMES D ARMSTRONG ([facility]) Insulin, Aspart, Human 100 UNT/ML Injectable Solution [NovoLog] ARMSTRONG ([facility]) Lisinopril 5 MG Oral Tablet CYNDI ([facility]) Lisinopril 10 MG Oral Tablet CYNDI ([facility]) insulin syringe U-100 with needle 1 mL 31 gauge x 5/16" CYNDI ([facility]) Ibuprofen 600 MG Oral Tablet CYNDI ([facility]) Ergocalciferol 71102 UNT Oral Capsule CYNDI ([facility]) Dexamethasone 1 MG/ML Ophthalmic Solution CYNDI ([facility]) Ciprofloxacin 3 MG/ML Ophthalmic Solution ARMSTRONG ([facility]) Cholecalciferol 2000 UNT Oral Tablet CYNDI ([facility]) Cholecalciferol 46152 UNT Oral Capsule CYNDI ([facility]) Baqsimi 3 mg/actuation nasal spray SPRAY 3MG IN ONE NOSTRIL TO TREAT SEVERE HYPOGLYCEMIA CYNDI ([facility]) atorvastatin 40 MG Oral Tablet CYNDI ([facility]) atorvastatin 20 MG Oral Tablet CYNDI ([facility]) Cholecalciferol 5000 UNT Oral Capsule [facility] Prednisone 20 MG Oral Tablet CYNDI ([facility]) Phosphorous Supplement 280 mg-160 mg-250 mg oral powder packet MIX 1 PACKET AND DRINK THREE TIMES DAILY CYNDI ( [facility]) Insulin, Aspart, Human 100 UNT/ML Injectable Solution [NovoLog] CYNDI ([facility]) Lisinopril 5 MG Oral Tablet CYNDI ([facility]) Lisinopril 10 MG Oral Tablet CYNDI ([facility]) Ibuprofen 600 MG Oral Tablet CYNDI ([facility]) Ergocalciferol 56188 UNT Oral Capsule CYNDI ([facility]) Dexamethasone 1 MG/ML Ophthalmic Solution CYNDI ([facility]) Ciprofloxacin 3 MG/ML Ophthalmic Solution CYNDI ([facility]) Cholecalciferol 2000 UNT Oral Tablet CYNDI ([facility]) Cholecalciferol 72155 UNT Oral Capsule CYNDI ([facility]) Baqsimi 3 mg/actuation nasal spray SPRAY 3MG IN ONE NOSTRIL TO TREAT SEVERE HYPOGLYCEMIA CYNDI ([facility]) atorvastatin 40 MG Oral Tablet CYNDI ([facility]) atorvastatin 20 MG Oral Tablet CYNDI ([facility]) Prednisone 20 MG Oral Tablet CYNDI ([facility]) Phosphorous Supplement 280 mg-160 mg-250 mg oral powder packet MIX 1 PACKET AND DRINK THREE TIMES DAILY CYNDI ( [facility]) Insulin, Aspart, Human 100 UNT/ML Injectable Solution [NovoLog] CYNDI ([facility]) Lisinopril 5 MG Oral Tablet CYNDI ([facility]) Lisinopril 10 MG Oral Tablet CYNDI ([facility]) Ibuprofen 600 MG Oral Tablet CYNDI ([facility]) Ergocalciferol 87234 UNT Oral Capsule CYNDI ([facility]) Dexamethasone 1 MG/ML Ophthalmic Solution CYNDI ([facility]) Ciprofloxacin 3 MG/ML Ophthalmic Solution CYNDI ([facility]) Cholecalciferol 2000 UNT Oral Tablet CYNDI ([facility]) Cholecalciferol 04761 UNT Oral Capsule CYNDI ([facility]) Baqsimi 3 mg/actuation nasal spray SPRAY 3MG IN ONE NOSTRIL TO TREAT SEVERE HYPOGLYCEMIA CYNDI ([facility]) atorvastatin 40 MG Oral Tablet CYNDI ([facility]) atorvastatin 20 MG Oral Tablet CYNDI ([facility]) Prednisone 20 MG Oral Tablet CYNDI ([facility]) Phosphorous Supplement 280 mg-160 mg-250 mg oral powder packet MIX 1 PACKET AND DRINK THREE TIMES DAILY CYNDI ( [facility]) Lisinopril 5 MG Oral Tablet CYNDI ([facility]) Ergocalciferol 82716 UNT Oral Capsule CYNDI ([facility]) Cholecalciferol 2000 UNT Oral Tablet CYNDI ([facility]) Baqsimi 3 mg/actuation nasal spray SPRAY 3MG IN ONE NOSTRIL TO TREAT SEVERE HYPOGLYCEMIA CYNDI ([facility]) atorvastatin 20 MG Oral Tablet CYNDI ([facility]) Lisinopril 5 MG Oral Tablet CYNDI ([facility]) Ergocalciferol 25832 UNT Oral Capsule CYNDI ([facility]) Cholecalciferol 2000 UNT Oral Tablet CYNDI ([facility]) Baqsimi 3 mg/actuation nasal spray SPRAY 3MG IN ONE NOSTRIL TO TREAT SEVERE HYPOGLYCEMIA CYNDI ([facility]) atorvastatin 20 MG Oral Tablet CYNDI ([facility]) Prednisone 20 MG Oral Tablet CYNDI ([facility]) Phosphorous Supplement 280 mg-160 mg-250 mg oral powder packet MIX 1 PACKET AND DRINK THREE TIMES DAILY CYNDI ( [facility]) Lisinopril 5 MG Oral Tablet CYNDI ([facility]) Ergocalciferol 89470 UNT Oral Capsule CYNDI ([facility]) Cholecalciferol 2000 UNT Oral Tablet CYNDI ([facility]) Baqsimi 3 mg/actuation nasal spray SPRAY 3MG IN ONE NOSTRIL TO TREAT SEVERE HYPOGLYCEMIA CYNDI ([facility]) atorvastatin 20 MG Oral Tablet CYNDI ([facility]) Prednisone 20 MG Oral Tablet CYNDI ([facility]) Phosphorous Supplement 280 mg-160 mg-250 mg oral powder packet MIX 1 PACKET AND DRINK THREE TIMES DAILY CYNDI ( [facility])
[2021-10-19] MEDS ORDERED: TRES1INJ2 SC (06:48)
== END 2021-10-18 06:50 | disposition home or self-care (01) ==
LOC: M ED 05:58
DX: S01.00XA Unspecified open wound of scalp, initial encounter (principal); X58.XXXA Exposure to other specified factors, initial encounter; Y92.9 Unspecified place or not applicable; Y93.9 Activity, unspecified; Y99.9 Unspecified external cause status; F32.A Depression, unspecified; F41.9 Anxiety disorder, unspecified; G43.909 Migraine, unspecified, not intractable, without status migrainosus; E11.9 Type 2 diabetes mellitus without complications; K21.9 Gastro-esophageal reflux disease without esophagitis; M41.9 Scoliosis, unspecified; Z79.4 Long term (current) use of insulin; Z79.899 Other long term (current) drug therapy

== ENCOUNTER 2021-10-18 20:48 | Inpatient (IN) | payer OTHER ==
[~2021-10-18] VITALS: Ht 162.6 cm; Wt 72.0 kg
[~2021-10-18 20:48] MED LIST changes: +BACI500O21 TOP
--- OUTSIDE RECORDS SUMMARY | 2021-10-18 21:00 | CCD ---
Author Author [facility] Organization [facility] Address Unknown Phone Unavailable Support Name Relationship Address Phone Rosibel Philippe Next Of Kin Unknown Unavailable MCDONCARNANCY Next Of Kin [address] [place] [address] [employer] Next Of Kin [address] [place] [address] Nikki Flowers Next Of Kin [address] [facility] [place] [address] ROSIBEL TONEY Next Of Kin [address] [place] [address] JAMES EVANS Next Of Kin [address] [facility] [address] [place] [address] SYL Next Of Kin [address] [place] [address] ROSIBEL ADLER Next Of Kin [address] [place] [address] MING LOPEZ Next Of Kin [address] [facility] [address] [place] [address] Unavailable MELODIE BURNETT Next Of Kin Unknown [employer] ([employer]CDONAL Next Of Kin [address] [facility] [address] [place] [address] CYNDI MCKEON Next Of Kin [address] [place] [address] MCDONALDS Next Of Kin [address] [facility] [place] [address] ENISHA TERESA Next Of Kin [address] [place] [address] ST Next Of Kin Unknown Unavailable ABIMBOLA BURNETT Next Of Kin [address] [place] [address] AMIE Next Of Kin [address] [place] [address] ANGEL BURNETT Next Of Kin [address] [place] [address] [employer]IAN[employer], (HC PROXY) MELODIE Next Of Kin [address] [place] [address] Care Team Providers Care Internet Merchant Name Role Phone Chris Lentz MD Unavailable [...] Unavailable Unavailable Chris Lentz MD Unavailable Unavailable Crhis Lentz MD Unavailable Unavailable Chris Lentz MD [...] Maring, Bashir PA Unavailable Unavailable Jonah, Nikki PARAMEDIC RN PARAMEDIC RN Unavailable Unavailable Nalla, Jackie Unavailable Nalla, Jackie Unavailable Nalla, Jackie Unavailable Jonah, A Nikki PARAMEDIC RN Unavailable Unavailable Jonah, A Nikki PARAMEDIC RN Unavailable Unavailable Jonah, A Nikki PARAMEDIC RN Unavailable Unavailable Jonah, A Nikki PARAMEDIC RN Unavailable Unavailable Jonah, A Nikki PARAMEDIC RN Unavailable Unavailable Jonah, A Nikki PARAMEDIC RN Unavailable Unavailable Jonah, A Nikki PARAMEDIC RN Unavailable Unavailable Jonah, A Nikki PARAMEDIC RN Unavailable Unavailable Aniak, A Nikki PARAMEDIC RN Unavailable Unavailable Aniak, A Nikki PARAMEDIC RN Unavailable Unavailable Aniak, A Nikki PARAMEDIC RN Unavailable Unavailable Aniak, A Nikki PARAMEDIC RN Unavailable Unavailable Aniak, A Nikki PARAMEDIC RN Unavailable Unavailable Aniak, A Nikki PARAMEDIC RN Unavailable Unavailable Aniak, A Nikki PARAMEDIC RN Unavailable Unavailable Aniak, A Nikki PARAMEDIC RN Unavailable Unavailable Aniak, A Nikki PARAMEDIC RN Unavailable Unavailable Aniak, A Nikki PARAMEDIC RN Unavailable Unavailable Aniak, A Nikki PARAMEDIC RN Unavailable Unavailable Aniak, A Nikki PARAMEDIC RN Unavailable Unavailable Aniak, A Nikki PARAMEDIC RN Unavailable Unavailable Aniak, A Nikki PARAMEDIC RN Unavailable Unavailable Aniak, A Nikki PARAMEDIC RN Unavailable Unavailable Aniak, A Nikki PARAMEDIC RN Unavailable Unavailable Aniak, A Nikki PARAMEDIC RN Unavailable Unavailable Aniak, A Nikki PARAMEDIC RN Unavailable Unavailable Aniak, A Nikki PARAMEDIC RN Unavailable Unavailable Aniak, A Nikki PARAMEDIC RN Unavailable Unavailable Aniak, A Nikki PARAMEDIC RN Unavailable Unavailable Aniak, A Nikki PARAMEDIC RN Unavailable Unavailable Aniak, A Nikki PARAMEDIC RN Unavailable Unavailable NALLA, JACKIE Unavailable Unavailable ANNIE, [...] Jessica Unavailable Unavailable Estefani Jessica Unavailable Unavailable EstefaniaHrveya Unavailable Unavailable Estefani Jessica Unavailable Unavailable Estefani, [...] is protected by Article 27-F of the [facility] Public Health law. If you continue you may have access to information: Regarding HIV / AIDS; Provided by facilities licensed or operated by the [facility] Office of Mental Health; or Provided by the [facility] Office for People With Developmental Disabilities. If such information is present, then the following [facility] mandated warning applies: This information has [...] law may result in a fine or fpc sentence or both. A general authorization for [...] Jackie Cageender: JACKIE [place] 2021 12:00:00 AM [facility] Outpatient Attender: JACKIE Angel: Jackie Destiny 09/15/2021 12:00:00 AM EDT [facility] Cesar Lentz MD: [address] [place] [address], Ph. Attender: Cesar Lentz MD [facility] Medical 07/02/2021 12:00:00 AM EDT [facility] ([facility]) Outpatient Attender: GABRIELLA GAMA [id number] 05/28/2021 1 2:00:00 AM EDT Type 1 diabetes mellitus with hypoglycemia without coma [facility] Type 1 diabetes mellitus with hypoglycem ia without coma Nikki Mckenzie [facility]: [address] [place] [address], Ph. Attender: Nikki Mckenzie [facility] Medical 05/07/2021 12:00:00 AM EDT [facility] ([facility]) Nikki Mckenzie [facility]: [address] [place] [address], Ph. Attender: Nikki Mckenzie [facility] Medical 05/07/2021 12:00:00 AM EDT [facility] ([facility]) Cesar Lentz MD: [address] [place] [address], Ph. Attender: Cesar Lentz MD [facility] Medical 04/22/2021 12:00:00 AM EDT [facility] ([facility]) Cesar Lentz MD: [address] [place] [address], Ph. Attender: Cesar Lenzt MD [facility] Medical 04/22/2021 12:00:00 AM EDT [facility] ([facility]) Cesar Lentz MD: [address] [place] [address], Ph. Attender: Cesar Lentz MD [facility] Medical 04/22/2021 12:00:00 AM EDT [facility] ([facility]) Outpatient Attender: KIM Liu Primary 03/26/2021 05:15:00 PM EDT [facility] ([facility]) Cesar Lentz MD: [address] [place] [address], Ph. Attender: Cesra Lentz MD [facility] Medical 03/10/2021 12:00:00 AM EDT [facility] ([facility]) Cesar Lentz MD: [address] [place] [address], Ph. Attender: Cesar Lentz MD [facility] Medical 03/10/2021 12:00:00 AM EDT [facility] ([facility]) Cesar Lentz MD: [address] [place] [address], Ph. Attender: Cesar Lentz MD [facility] Medical 03/10/2021 12:00:00 AM EDT [facility] ([facility]) Cesar Lentz MD: [address] [place] [address], Ph. Attender: Cesar Lentz MD [facility] Medical 03/10/2021 12:00:00 AM EDT [facility] ([facility]) Outpatient Attender: GABRIELLA GAMA [id number] 02/20/2021 1 2:00:00 AM EDT Type 1 diabetes mellitus with hyperglycemia [facility] Type 1 diabetes mellitus with hyperglyce oneil Lentz MD: [address] [place] [address], Ph. Attender: Cesar Lentz MD [facility] Medical 02/10/2021 12:00:00 AM EDT [facility] ([facility]) Cesar Lentz MD: [address] [place] [address], Ph. Attender: Cesar Lentz MD [facility] Medical 02/10/2021 12:00:00 AM EDT [facility] ([facility]) Cesar Lentz MD: [address] [place] [address], Ph. Attender: Cesar Lentz MD [facility] Medical 02/10/2021 12:00:00 AM EDT [facility] ([facility]) Cesar Lentz MD: [address] [place] [address], Ph. Attender: Cesar Lentz MD [facility] Medical 02/10/2021 12:00:00 AM EDT [facility] ([facility]) Cesar Lentz MD: [address] [place] [address], Ph. Attender: Cesar Lentz MD [facility] Medical 02/10/2021 12:00:00 AM EDT [facility] ([facility]) Cesar Lentz MD: [address] [place] [address], Ph. Attender: Cesar Lentz MD [facility] Medical 12/25/2020 12:00:00 AM EST [facility] ([facility]) Cesar Lentz MD: [address] [place] [address], Ph. Attender: Cesar Lentz MD [facility] Medical 12/25/2020 12:00:00 AM EST [facility] ([facility]) Cesar Lentz MD: [address] [place] [address], Ph. Attender: Cesar Lentz MD [facility] Medical 12/25/2020 12:00:00 AM EST [facility] ([facility]) Cesar Lentz MD: [address] [place] [address], Ph. Attender: Cesar Lentz MD [facility] Medical 12/25/2020 12:00:00 AM EST [facility] ([facility]) Cesar Lentz MD: [address] [place] [address], Ph. Attender: Cesar Lentz MD [facility] Medical 12/25/2020 12:00:00 AM EST [facility] ([facility]) Cesar Lentz MD: [address] [place] [address], Ph. Attender: Cesar Lentz MD [facility] Medical 12/25/2020 12:00:00 AM EST [facility] ([facility]) Outpatient Attender: Bashir GAMA 12/24/19 10:49:12 AM EST - 12/24/2020 11:00:40 AM EST [facility] ([facility] ) Outpatient Attender: JACKIE [place] 11/19/2020 12:00:00 AM [facility] Cesar Lentz MD: [address] [place] [address], Ph. Attender: Cesar Lentz MD [facility] Medical 09/25/2020 12:00:00 AM EST [facility] ([facility]) Cesar Lentz MD: [address] [place] [address], Ph. Attender: Cesar Lentz MD [facility] Medical 09/25/2020 12:00:00 AM EST [facility] ([facility]) Cesar Lentz MD: [address] [place] [address], Ph. Attender: Cesar Lentz MD [facility] Medical 09/25/2020 12:00:00 AM EST [facility] ([facility]) eCsar Lentz MD: [address] [place] [address], Ph. Attender: Cesar Lentz MD [facility] Medical 09/25/2020 12:00:00 AM EST [facility] ([facility]) Cesar Lentz MD: [address] [place] [address], Ph. Attender: Cesar Lentz MD [facility] Medical 09/25/2020 12:00:00 AM EST [facility] ([facility]) Cesar Lentz MD: [address] [place] [address], Ph. Attender: Cesar Lentz MD [facility] Medical 09/25/2020 12:00:00 AM EST [facility] ([facility]) Cesar Lentz MD: [address] [place] [address], Ph. Attender: Cesar Lentz MD [facility] Medical 09/25/2020 12:00:00 AM EST [facility] ([facility]) Outpatient Attender: MICHAEL JACQUES 09/02/2020 05:15:00 P M EDT [facility] Outpatient Attender: GABRIELLA GAMA [id number] 08/19/2020 1 2:00:00 AM EDT Type 1 diabetes mellitus with hyperglycemia [facility] Type 1 diabetes mellitus with hyperglyce [facility] Outpatient Attender: Jessica Jara MD 08/19/2020 12:00:00 A M EDT [facility] Immunizations Vaccine Date Status Description Data Source(s) COVID-19, mRNA, LNP-S, PF, 100 mcg/0.5 mL dose 03/10/2021 10 :46:37 AM EDT completed .5 mL [facility] ([facility]) COVID-19, mRNA, LNP-S, PF, 100 mcg/0.5 mL dose 03/10/2021 10 :46:37 AM EDT completed .5 mL [facility] ([facility]) COVID-19, mRNA, LNP-S, PF, 100 mcg/0.5 mL dose 03/10/2021 10 :46:37 AM EDT completed .5 mL [facility] ([facility]) COVID-19, mRNA, LNP-S, PF, 100 mcg/0.5 mL dose 03/10/2021 10 :46:37 AM EDT completed .5 mL [facility] ([facility]) COVID-19 VACCINE Moderna 03/10/2021 12:00:00 AM EDT completed [place] Vaccine Series Complete: YESThis Data wa s Submitted to [facility] Via [facility]. COVID-19, mRNA, LNP-S, PF, 100 mcg/0.5 mL dose 02/10/2021 09 :12:40 PM EDT completed .5 mL [facility] ([facility]) COVID-19, mRNA, LNP-S, PF, 100 mcg/0.5 mL dose 02/10/2021 09 :12:40 PM EDT completed .5 mL [facility] ([facility]) COVID-19, mRNA, LNP-S, PF, 100 mcg/0.5 mL dose 02/10/2021 09 :12:40 PM EDT completed .5 mL [facility] ([facility]) COVID-19, mRNA, LNP-S, PF, 100 mcg/0.5 mL dose 02/10/2021 09 :12:40 PM EDT completed .5 mL [facility] ([facility]) COVID-19, mRNA, LNP-S, PF, 100 mcg/0.5 mL dose 02/10/2021 09 :12:40 PM EDT completed .5 mL [facility] ([facility]) COVID-19 VACCINE Moderna 02/10/2021 12:00:00 AM EDT completed [facility]IS Vaccine Series Complete: NOThis Data was Submitted to [facility] Via [employer]. New in 2011. IIV4 09/25/2020 02:34:00 PM EST completed .5 mL [facility] ([facility]) New in 2011. IIV4 09/25/2020 02:34:00 PM EST completed .5 mL [facility] ([facility]) New in 2011. IIV4 09/25/2020 02:34:00 PM EST completed .5 mL [facility] ([facility]) New in 2011. IIV4 09/25/2020 02:34:00 PM EST completed 0.5 mL [facility] ([facility]) New in 2011. IIV4 09/25/2020 02:34:00 PM EST completed .5 mL [facility] ([facility]) New in 2011. IIV4 09/25/2020 02:34:00 PM EST completed .5 mL [facility] ([facility]) New in 2011. IIV4 09/25/2020 02:34:00 PM EST completed .5 mL [facility] ([facility]) Medications Medication Brand Name Start Date Product Form Dose Route Admi nistrative Instructions Pharmacy Instructions Status Indications Reaction Description Data Source(s) Baqsimi One Pack 3 MG/DOSE Nasal Powder (Glucagon) 6680-9615 -11 05/28/2021 12:00:00 AM EDT active [place] 3mg in one nostril to treat severe hypoglycemia. Dx E10.65 . [facility] Tresiba FlexTouch 100 UNIT/ML Subcutaneo us Solution Pen-injector (insulin degludec) 0739-2335-33 05/28/2021 12:00:00 AM EDT active Type 1 diabetes mellitus with hyperglycemia Inject 21 units i n the morning and 20 units in the evening as directed. MDD 63 units with priming and titration [facility] Type 1 diabetes mellitus with hyperglyce oneil OneTouch Ultra In Vitro Strip 65726-106-29 05/28/2021 12:00:00 AM EDT active Type 1 diabetes mellitus with hyperglycemia Use as instructed 6 times daily to check sugars. Dx: E10.65 [facility] Type 1 diabetes mellitus with hyperglyce oneil Insulin Pen Needle 31G X 6 MM 57532 02/20/2021 12:00:00 AM EDT active Use as directed. With Tresiba and Novolo g pens up to 6 times daily. E 10.65 [facility] Insulin, Aspart, Human 100 UNT/ML Inject able Solution Insulin Aspart 100 UNIT/ML Subcutaneous Solution (NOVOLOG) Insulin Aspart 100 UNIT/ML Subcutaneous Solution (NOVOLOG) 02/05/2021 12:00:00 AM EDT act [place] Type 1 diabetes mellitus with hyperglycemia Inject as per sliding scale. MDD- 95 units with titration. Dx: E10.65 [facility] Type 1 diabetes mellitus with hyperglyce oneil OneTouch Ultra In Vitro Strip 02637-162-49 11/03/2020 12:00:00 AM EST aborted Type 1 diabetes mellitus with hyperglycemia USE TO CHECK BLOOD GLUCOSE 6 TIMES DAILY [facility] Type 1 diabetes mellitus with hyperglyce oneil Insulin Syringe 31G X 5/16" 1 ML [id number] 09/19/2020 12:00:00 AM EST active Type 1 diabetes mellitus with hyperglycemia Use as directed. USE DIRECTED WITH INSULIN INJECTIONS UP TO 6 TIMES DAILY [facility] Type 1 diabetes mellitus with hyperglyce oneil Dexcom G6 Sensor [id number] 07/02/2020 12:00:00 AM EDT 1 {each} Does not apply aborted Type 1 diabetes mellitus with hyperg lycemia 1 each by Does not apply route every 7 (seven) days [facility] Type 1 diabetes mellitus with hyperglyce oneil Dexcom G6 Public Address System Installer Device [id number] 07/02/2020 12:00:00 AM EDT aborted Type 1 diabetes mellitus with hyperglycemia GABRIELA Y DIRECTED [facility] Type 1 diabetes mellitus with hyperglyce oneil Tegaderm Film 4"x4-3/4" 3022-8395-84 07/02/2020 12:00:00 AM EDT aborted Type 1 diabetes mellitus with hyperglycemia GABRIELA Y DIRECTED [facility] Type 1 diabetes mellitus with hyperglyce oneil Dexcom G6 Transmitter [id number] 07/02/2020 12:00:00 AM EDT aborted Type 1 diabetes mellitus with hyperglycemia DAILY DIRECTE D [facility] Type 1 diabetes mellitus with hyperglyce oneil Adhesive Remover Wipes [place] [id number] 07/02/2020 12:00:00 AM EDT 1 {each} Topical aborted Type 1 diabetes mellitus with hyperg lycemia Apply 1 each topically once a week [facility] Type 1 diabetes mellitus with hyperglyce oneil Insulin Degludec 100 UNIT/ML Subcutaneou s Solution Pen-injector (Tresiba FlexTouch) [id number] 04/01/2020 12:00:00 AM EDT aborted Type 1 diabetes mellitus with hyperglycemia Inject 17 units in the mor doreen and 17 units in the evening as directed. MDD 58 units with priming and titration [facility] Type 1 diabetes mellitus with hyperglyce oneil Ergocalciferol 29022 UNT Oral Capsule Er gocalciferol 1.25 MG (07031 UT) Oral Capsule (ERGOCALCIFEROL) Ergocalciferol 1.25 MG (54972 UT) Oral C apsule (ERGOCALCIFEROL) 11/23/2019 12:00:00 AM EST 25039 U Oral active Take 1 capsule by mouth once a week For 8 weeks only. [facility] Glucagon 3 MG/DOSE Nasal Powder (BAQSIMI ONE PACK) [id number] 10/29/2019 12:00:00 AM EST aborted [place] 3m g in one nostril to treat severe hypoglycemia. Dx E10.65 . [facility] Glucagon 1 MG Injection glucagon (GLUCAGON EMERGENCY) 1 MG injection glucagon (GLUCAGON EMERGENCY) 1 MG injection 10/11/2018 12:00:00 AM EST aborted Type 1 diabetes mellitus with hyperglycemia Inject 1 mg SC/IM for severe hypoglycemic event. [facility] Type 1 diabetes mellitus with hyperglyce oneil Dexamethasone 1 MG/ML Ophthalmic Solutio n dexamethasone sodium phosphate 0.1 % eye drops INSTILL 2 DROPS THROUGH TRACHE SITE THREE TIMES DAILY FOR 5 DAYS INSTRUCTED dexamethasone sodium phosphate 0.1 % eye drops INSTILL 2 DROPS THROUGH TRACHE SITE THREE TIMES DAILY FOR 5 DAYS INSTRUCTED completed dexamethasone phosphate 1 MG/ML Ophthalmic Solution [facility] ([facility]) Ciprofloxacin 3 MG/ML Ophthalmic Solutio n ciprofloxacin 0.3 % eye drops INSTILL 2 DROPS THROUGH TRACHE SITE THREE TIMES DAILY FOR 5 DAYS INSTRUCTED ciprofloxacin 0.3 % eye drops INSTILL 2 DROPS THROUGH TRACHE SITE THREE TIMES DAILY FOR 5 DAYS INSTRUCTED complet ed ciprofloxacin 3 MG/ML Ophthalmic Solution [facility] ([facility]) Cholecalciferol 2000 UNT Oral Tablet cho lecalciferol (vitamin D3) 50 mcg (2,000 unit) tablet TK ONE T PO D cholecalciferol (vitamin D3) 50 mcg (2,0 00 unit) tablet TK ONE T PO D completed cholecalciferol 0.05 MG Oral Tablet [facility] ([facility]) Prednisone 20 MG Oral Tablet prednisone 20 mg tablet T K 2 TS PO D FOR 4 DAYS prednisone 20 mg tablet TK 2 TS PO D FOR 4 DAYS completed prednisone 20 MG Oral Tablet [facility] ([facility]) Cholecalciferol 2000 UNT Oral Tablet cho lecalciferol (vitamin D3) 50 mcg (2,000 unit) tablet TK ONE T PO D cholecalciferol (vitamin D3) 50 mcg (2,0 00 unit) tablet TK ONE T PO D completed cholecalciferol 0.05 MG Oral Tablet [facility] ([facility]) Lisinopril 5 MG Oral Tablet lisinopril 5 mg tablet TK 1 T PO QD lisinopril 5 mg tablet TK 1 T PO QD completed li sinopril 5 MG Oral Tablet [facility] ([facility]) Ibuprofen 600 MG Oral Tablet ibuprofen 600 mg tablet ibuprofen 6 00 mg tablet completed ibuprofen 600 MG Oral Tablet [facility] ([facility]) Lisinopril 5 MG Oral Tablet lisinopril 5 mg tablet TK 1 T PO QD lisinopril 5 mg tablet TK 1 T PO QD completed li sinopril 5 MG Oral Tablet [facility] ([facility]) Insulin, Aspart, Human 100 UNT/ML Inject able Solution [NovoLog] Novolog U-100 Insulin aspart 100 unit/mL subcutaneous solution INJECT PER SLIDING SCALE MDD 95 UNITS WITH TITRATION Novolog U-100 Insulin aspart 100 unit/mL subcutaneous solution INJECT PER SLIDING SCALE MDD 95 UNITS WITH TITRATION completed insulin aspart, human 100 UNT/ML Injectable Solution [NovoLog] [facility] ([facility]) Cholecalciferol 2000 UNT Oral Tablet cho lecalciferol (vitamin D3) 50 mcg (2,000 unit) tablet TK ONE T PO D cholecalciferol (vitamin D3) 50 mcg (2,0 00 unit) tablet TK ONE T PO D completed cholecalciferol 0.05 MG Oral Tablet [facility] ([facility]) Lisinopril 5 MG Oral Tablet lisinopril 5 mg tablet TK 1 T PO QD lisinopril 5 mg tablet TK 1 T PO QD completed li sinopril 5 MG Oral Tablet [facility] ([facility]) Cholecalciferol 5000 UNT Oral Capsule Vitamin D3 125 M CG (5000 UT) Oral Capsule Vitamin D3 125 MCG (5000 UT) Oral Capsule 5000 U Oral aborted Take 5,000 Units by mouth Once Daily [facility] Lisinopril 5 MG Oral Tablet lisinopril 5 mg tablet TK 1 T PO QD lisinopril 5 mg tablet TK 1 T PO QD completed li sinopril 5 MG Oral Tablet [facility] ([facility]) Phosphorous Supplement 280 mg-160 mg-250 mg oral powder packet MIX 1 PACKET AND DRINK THREE TIMES DAILY [id number] completed Phosphorous Supplement 280 mg-160 mg-250 mg oral powder packet [facility] ([facility]) Baqsimi 3 mg/actuation nasal spray SPRAY 3MG IN ONE NOSTRIL TO TREAT SEVERE HYPOGLYCEMIA 079845 completed gl ucagon 3 MG Nasal Powder [Baqsimi] [facility] ([facility]) OneTouch Ultra Blue Test Strip USE TO CHECK BLOOD GLUCOSE 6 TIMES D 834805 completed OneTouch Ultra Blue Te [facility] Strip [place] ([facility]) Cholecalciferol 04874 UNT Oral Capsule c holecalciferol (vitamin D3) 1,250 mcg (50,000 unit) capsule TK 1 C PO ONCE PER WEEK cholecalciferol (vitamin D3) 1,250 mcg (50,000 unit) capsule TK 1 C PO ONCE PER WEEK completed cholecalciferol 1.25 MG Oral Capsule [facility] ([facility]) Baqsimi 3 mg/actuation nasal spray SPRAY 3MG IN ONE NOSTRIL TO TREAT SEVERE HYPOGLYCEMIA 374044 completed gl ucagon 3 MG Nasal Powder [Baqsimi] [facility] ([facility]) Prednisone 20 MG Oral Tablet prednisone 20 mg tablet T K 2 TS PO D FOR 4 DAYS prednisone 20 mg tablet TK 2 TS PO D FOR 4 DAYS completed prednisone 20 MG Oral Tablet [facility] ([facility]) Prednisone 20 MG Oral Tablet prednisone 20 mg tablet T K 2 TS PO D FOR 4 DAYS prednisone 20 mg tablet TK 2 TS PO D FOR 4 DAYS completed prednisone 20 MG Oral Tablet [facility] ([facility]) atorvastatin 40 MG Oral Tablet atorvastatin 40 mg tabl et atorvastatin 40 mg tablet completed atorvastatin 40 MG Oral Tablet [facility] ([facility]) Ergocalciferol 38716 UNT Oral Capsule er gocalciferol (vitamin D2) 1,250 mcg (50,000 unit) capsule TK 1 C PO 1 TIME A WK FOR 8 WKS ONLY ergocalciferol (vitamin D2) 1,250 mcg (50,000 unit) capsule TK 1 C PO 1 TIME A WK FOR 8 WKS ONLY completed ergocalciferol 1 .25 MG Oral Capsule [facility] ([facility]) Phosphorous Supplement 280 mg-160 mg-250 mg oral powder packet MIX 1 PACKET AND DRINK THREE TIMES DAILY [id number] completed Phosphorous Supplement 280 mg-160 mg-250 mg oral powder packet [facility] ([facility]) atorvastatin 20 MG Oral Tablet atorvastatin 20 mg tabl et atorvastatin 20 mg tablet completed atorvastatin 20 MG Oral Tablet [facility] ([facility]) Cholecalciferol 05230 UNT Oral Capsule c holecalciferol (vitamin D3) 1,250 mcg (50,000 unit) capsule TK 1 C PO ONCE PER WEEK cholecalciferol (vitamin D3) 1,250 mcg (50,000 unit) capsule TK 1 C PO ONCE PER WEEK completed cholecalciferol 1.25 MG Oral Capsule [facility] ([facility]) Phosphorous Supplement 280 mg-160 mg-250 mg oral powder packet MIX 1 PACKET AND DRINK THREE TIMES DAILY [id number] completed Phosphorous Supplement 280 mg-160 mg-250 mg oral powder packet [place] ([facility]) Baqsimi 3 mg/actuation nasal spray SPRAY 3MG IN ONE NOSTRIL TO TREAT SEVERE HYPOGLYCEMIA 611535 completed gl ucagon 3 MG Nasal Powder [Baqsimi] [facility] ([facility]) Phosphorous Supplement 280 mg-160 mg-250 mg oral powder packet MIX 1 PACKET AND DRINK THREE TIMES DAILY [id number] completed Phosphorous Supplement 280 mg-160 mg-250 mg oral powder packet CYNDI ([facility]) Ergocalciferol 84194 UNT Oral Capsule er gocalciferol (vitamin D2) 1,250 mcg (50,000 unit) capsule TK 1 C PO 1 TIME A WK FOR 8 WKS ONLY ergocalciferol (vitamin D2) 1,250 mcg (50,000 unit) capsule TK 1 C PO 1 TIME A WK FOR 8 WKS ONLY completed ergocalciferol 1 .25 MG Oral Capsule CYNDI ([facility]) Ciprofloxacin 3 MG/ML Ophthalmic Solutio n ciprofloxacin 0.3 % eye drops INSTILL 2 DROPS THROUGH TRACHE SITE THREE TIMES DAILY FOR 5 DAYS INSTRUCTED ciprofloxacin 0.3 % eye drops INSTILL 2 DROPS THROUGH TRACHE SITE THREE TIMES DAILY FOR 5 DAYS INSTRUCTED complet ed ciprofloxacin 3 MG/ML Ophthalmic Solution CYNDI ([facility]) Ergocalciferol 34786 UNT Oral Capsule er gocalciferol (vitamin D2) 1,250 mcg (50,000 unit) capsule TK 1 C PO 1 TIME A WK FOR 8 WKS ONLY ergocalciferol (vitamin D2) 1,250 mcg (50,000 unit) capsule TK 1 C PO 1 TIME A WK FOR 8 WKS ONLY completed ergocalciferol 1 .25 MG Oral Capsule CYNDI ([facility]) Ciprofloxacin 3 MG/ML Ophthalmic Solutio n ciprofloxacin 0.3 % eye drops INSTILL 2 DROPS THROUGH TRACHE SITE THREE TIMES DAILY FOR 5 DAYS INSTRUCTED ciprofloxacin 0.3 % eye drops INSTILL 2 DROPS THROUGH TRACHE SITE THREE TIMES DAILY FOR 5 DAYS INSTRUCTED complet ed ciprofloxacin 3 MG/ML Ophthalmic Solution CYNDI ([facility]) Dexamethasone 1 MG/ML Ophthalmic Solutio n dexamethasone sodium phosphate 0.1 % eye drops INSTILL 2 DROPS THROUGH TRACHE SITE THREE TIMES DAILY FOR 5 DAYS INSTRUCTED dexamethasone sodium phosphate 0.1 % eye drops INSTILL 2 DROPS THROUGH TRACHE SITE THREE TIMES DAILY FOR 5 DAYS INSTRUCTED completed dexamethasone phosphate 1 MG/ML Ophthalmic Solution CYNDI ([facility]) Prednisone 20 MG Oral Tablet prednisone 20 mg tablet T K 2 TS PO D FOR 4 DAYS prednisone 20 mg tablet TK 2 TS PO D FOR 4 DAYS completed prednisone 20 MG Oral Tablet CYNDI ([facility]) Cholecalciferol 2000 UNT Oral Tablet cho lecalciferol (vitamin D3) 50 mcg (2,000 unit) tablet TK ONE T PO D cholecalciferol (vitamin D3) 50 mcg (2,0 00 unit) tablet TK ONE T PO D completed cholecalciferol 0.05 MG Oral Tablet CYNDI ([facility]) Dexamethasone 1 MG/ML Ophthalmic Solutio n dexamethasone sodium phosphate 0.1 % eye drops INSTILL 2 DROPS THROUGH TRACHE SITE THREE TIMES DAILY FOR 5 DAYS INSTRUCTED dexamethasone sodium phosphate 0.1 % eye drops INSTILL 2 DROPS THROUGH TRACHE SITE THREE TIMES DAILY FOR 5 DAYS INSTRUCTED completed dexamethasone phosphate 1 MG/ML Ophthalmic Solution CYNDI ([facility]) Baqsimi 3 mg/actuation nasal spray SPRAY 3MG IN ONE NOSTRIL TO TREAT SEVERE HYPOGLYCEMIA 801351 completed gl ucagon 3 MG Nasal Powder [Baqsimi] TECOPA ([facility]) atorvastatin 20 MG Oral Tablet atorvastatin 20 mg tabl et atorvastatin 20 mg tablet completed atorvastatin 20 MG Oral Tablet [facility] ([facility]) Insulin, Aspart, Human 100 UNT/ML Inject able Solution [NovoLog] Novolog U-100 Insulin aspart 100 unit/mL subcutaneous solution INJECT PER SLIDING SCALE MDD 95 UNITS WITH TITRATION Novolog U-100 Insulin aspart 100 unit/mL subcutaneous solution INJECT PER SLIDING SCALE MDD 95 UNITS WITH TITRATION completed insulin aspart, human 100 UNT/ML Injectable Solution [NovoLog] [facility] ([facility]) Cholecalciferol 2000 UNT Oral Tablet cho lecalciferol (vitamin D3) 50 mcg (2,000 unit) tablet TK ONE T PO D cholecalciferol (vitamin D3) 50 mcg (2,0 00 unit) tablet TK ONE T PO D completed cholecalciferol 0.05 MG Oral Tablet [facility] ([facility]) Insulin, Aspart, Human 100 UNT/ML Inject able Solution [NovoLog] Novolog U-100 Insulin aspart 100 unit/mL subcutaneous solution INJECT PER SLIDING SCALE MDD 95 UNITS WITH TITRATION Novolog U-100 Insulin aspart 100 unit/mL subcutaneous solution INJECT PER SLIDING SCALE MDD 95 UNITS WITH TITRATION completed insulin aspart, human 100 UNT/ML Injectable Solution [NovoLog] [facility] ([facility]) Ergocalciferol 77005 UNT Oral Capsule er gocalciferol (vitamin D2) 1,250 mcg (50,000 unit) capsule TK 1 C PO 1 TIME A WK FOR 8 WKS ONLY ergocalciferol (vitamin D2) 1,250 mcg (50,000 unit) capsule TK 1 C PO 1 TIME A WK FOR 8 WKS ONLY completed ergocalciferol 1 .25 MG Oral Capsule [facility] ([facility]) insulin syringe U-100 with needle 1 mL 31 gauge x 5/16" [id number] completed insulin syringe U-100 with needl e 1 mL 31 gauge x 5/16" [facility] ([facility]) atorvastatin 20 MG Oral Tablet atorvastatin 20 mg tabl et atorvastatin 20 mg tablet completed atorvastatin 20 MG Oral Tablet [facility] ([facility]) Lisinopril 5 MG Oral Tablet lisinopril 5 mg tablet TK 1 T PO QD lisinopril 5 mg tablet TK 1 T PO QD completed li sinopril 5 MG Oral Tablet [facility]NDI ([facility]) Lisinopril 10 MG Oral Tablet lisinopril 10 mg tablet T K 1 T PO D lisinopril 10 mg tablet TK 1 T PO D completed lisinopril 10 MG Oral Tablet [facility]I ([facility]) Ibuprofen 600 MG Oral Tablet ibuprofen 600 mg tablet ibuprofen 6 00 mg tablet completed ibuprofen 600 MG Oral Tablet [facility]NDI ([facility]) OneTouch Ultra Test strips USE INSTRUCTED 6 TIMES D AILY TO CHECK SUGARS 218148 completed OneTouch Ultra Test strips [facility] ([facility]) Phosphorous Supplement 280 mg-160 mg-250 mg oral powder packet MIX 1 PACKET AND DRINK THREE TIMES DAILY 333371 completed Phosphorous Supplement 280 mg-160 mg-250 mg oral powder packet [facility] ([facility]) Unifine Pentips 31 gauge x 1/4" needle U SE DIRECTED WITH TRESIBA AND NOVOLOG PENS UP TO 6 TIMES DAILY [id number] completed Unifine Pentips 31 gauge x 1/4" needle [facility]NDI ([facility]) atorvastatin 40 MG Oral Tablet atorvastatin 40 mg tabl et atorvastatin 40 mg tablet completed atorvastatin 40 MG Oral Tablet [facility] ([facility]) Phosphorous Supplement 280 mg-160 mg-250 mg oral powder packet MIX 1 PACKET AND DRINK THREE TIMES DAILY [id number] completed Phosphorous Supplement 280 mg-160 mg-250 mg oral powder packet CYNDI ([facility]) Prednisone 20 MG Oral Tablet prednisone 20 mg tablet T K 2 TS PO D FOR 4 DAYS prednisone 20 mg tablet TK 2 TS PO D FOR 4 DAYS completed prednisone 20 MG Oral Tablet [facility] ([facility]) Ergocalciferol 06917 UNT Oral Capsule er gocalciferol (vitamin D2) 1,250 mcg (50,000 unit) capsule TK 1 C PO 1 TIME A WK FOR 8 WKS ONLY ergocalciferol (vitamin D2) 1,250 mcg (50,000 unit) capsule TK 1 C PO 1 TIME A WK FOR 8 WKS ONLY completed ergocalciferol 1 .25 MG Oral Capsule CYNDI ([facility]) Cholecalciferol 70514 UNT Oral Capsule c holecalciferol (vitamin D3) 1,250 mcg (50,000 unit) capsule TK 1 C PO ONCE PER WEEK cholecalciferol (vitamin D3) 1,250 mcg (50,000 unit) capsule TK 1 C PO ONCE PER WEEK completed cholecalciferol 1.25 MG Oral Capsule CYNDI ([facility]) atorvastatin 20 MG Oral Tablet atorvastatin 20 mg tabl et atorvastatin 20 mg tablet completed atorvastatin 20 MG Oral Tablet [facility]I ([facility]) Lisinopril 10 MG Oral Tablet lisinopril 10 mg tablet T K 1 T PO D lisinopril 10 mg tablet TK 1 T PO D completed lisinopril 10 MG Oral Tablet CYNDI ([facility]) Ibuprofen 600 MG Oral Tablet ibuprofen 600 mg tablet ibuprofen 6 00 mg tablet completed ibuprofen 600 MG Oral Tablet CYNDI ([facility]) atorvastatin 20 MG Oral Tablet atorvastatin 20 mg tabl et atorvastatin 20 mg tablet completed atorvastatin 20 MG Oral Tablet CYNDI ([facility]) Prednisone 20 MG Oral Tablet prednisone 20 mg tablet T K 2 TS PO D FOR 4 DAYS prednisone 20 mg tablet TK 2 TS PO D FOR 4 DAYS completed prednisone 20 MG Oral Tablet [facility]NDI ([facility]) Lisinopril 10 MG Oral Tablet lisinopril 10 mg tablet T K 1 T PO D lisinopril 10 mg tablet TK 1 T PO D completed lisinopril 10 MG Oral Tablet CYNDI ([facility]) Cholecalciferol 2000 UNT Oral Tablet cho lecalciferol (vitamin D3) 50 mcg (2,000 unit) tablet TK ONE T PO D cholecalciferol (vitamin D3) 50 mcg (2,0 00 unit) tablet TK ONE T PO D completed cholecalciferol 0.05 MG Oral Tablet CYNDI ([facility]) atorvastatin 40 MG Oral Tablet atorvastatin 40 mg tabl et atorvastatin 40 mg tablet completed atorvastatin 40 MG Oral Tablet [facility]I ([facility]) atorvastatin 20 MG Oral Tablet atorvastatin 20 mg tabl et atorvastatin 20 mg tablet completed atorvastatin 20 MG Oral Tablet [facility]I ([facility]) Baqsimi 3 mg/actuation nasal spray SPRAY 3MG IN ONE NOSTRIL TO TREAT SEVERE HYPOGLYCEMIA 233096 completed gl ucagon 3 MG Nasal Powder [Baqsimi] CYNDI ([facility]) Ergocalciferol 47061 UNT Oral Capsule er gocalciferol (vitamin D2) 1,250 mcg (50,000 unit) capsule TK 1 C PO 1 TIME A WK FOR 8 WKS ONLY ergocalciferol (vitamin D2) 1,250 mcg (50,000 unit) capsule TK 1 C PO 1 TIME A WK FOR 8 WKS ONLY completed ergocalciferol 1 .25 MG Oral Capsule CYNDI ([facility]) Baqsimi 3 mg/actuation nasal spray SPRAY 3MG IN ONE NOSTRIL TO TREAT SEVERE HYPOGLYCEMIA 100615 completed gl ucagon 3 MG Nasal Powder [Baqsimi] CYNDI ([facility]) Lisinopril 5 MG Oral Tablet lisinopril 5 mg tablet TK 1 T PO QD lisinopril 5 mg tablet TK 1 T PO QD completed li sinopril 5 MG Oral Tablet CYNDI ([facility]) Insurance Providers Payer name Policy type / Coverage type Policy ID Covered libertarian ID Covered libertarian's relationship to laird Policy Laird Plan Information [employer] PLUS [id number] SP [id number] [employer] PLUS [id number] SP [id number] [employer] 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 COMP [id number] SP [id number] [place] PPO 302/307 [id number] SP [id number] QUEENMarinelayer WORKER COMP [id number] SP [id number] BCBS GENERIC C [id number] Self [id number] BCBS GENERIC C [id number] Self MCQM [id number] EXCELLUS BCBS [id number] Sunitha MCQ [id number] Excellus BCYO P [id number] S TRIST[place] [id number] Excellus BCYO S [id number] S [place] [id number] BCBS GENERIC C [id number] Self [id number] [facility] U [id number] Self [id number] [facility] P [id number] S [id number] [employer] 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 [id number] SP [id number] SELF PAY ONLY [id number] SP [id number] SELF PAY ONLY [id number] SP [id number] SELF PAY ONLY - [id number] SP [place] 121/621 [id number] SP [id number] BCBS/Blue Card Commercial [id number] Self [id number] BCBS/Blue Card Commercial [id number] Self [id number] EXCELLUS BCBS B [id number] S MCQ [id number] [facility] [id number] Self [id number] Self [id number] [place] [id number] SP [id number] [id number] Self Excellus BCBS Health Maintenance Organization (HMO) [id number] Self BS [place] Commercial [id number] Self [place] [id number] SP [id number] [place]BS [place] PPO 302/307 [id number] SP [id number] SELF PAY UNAVAILABLE SP UNAVAILA BLE BCBS [place] [id number] UNAVAILABLE SP UNAVAILABLE [place] [id number] SP [id number] MEDICAID [id number] SP [id number] HMO BLUE [id number] SP [id number] HMO BLUE [id number] SP [id number] HMO BLUE [id number] SP [id number] COMPSYCH [id number] SP [id number] [place] [id number] SP [id number] [place] [id number] SP [id number] CHINO [facility] [place] [id number] S [id number] ANSI-Not a Secondary Insurance [id number] [place] [id number] SP [id number] [id number] SP [id number] [facility] [id number] SP [id number] BCBS [id number] SP [id number] BCBS/Blue Card Commercial [id number] Self [id number] ANSI-Commercial [id number] BCBS/Blue Card Commercial [id number] Self [id number] BCBS/Blue Card Commercial [id number] Self [id number] BCBS/Blue Card Commercial [id number] Self [id number] BCBS [facility] [id number] 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 12:00:00 AM EST CYNDI ([facility]) 60411672 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 12:00:00 AM EST CYNDI ([facility]) 90412445 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 12:00:00 AM EST CYNDI ([facility]) 87332124 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 12:00:00 AM EST CYNDI ([facility]) [id number] 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 12:00:00 AM EST CYNDI ([facility]) 20686309 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 12:00:00 AM EST CYNDI ([facility]) 89676609 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 12:00:00 AM EST CYNDI ([facility]) Surgeries/Procedures No Information Results ID Date Data Source [id number] 05/28/2021 09:11:04 AM EDT [facility] Name Value Range Interpretation Code Description Data Claribel rce(s) Supporting Document(s) Progress Note [facility] EJWCOo6eTjKODxZz27/EAGfnEZSoh1ClYKxlWEa8SIezZPRsR1JnFVH3cP1iZOR5EKtGXnPdWnUuTaD5 [facility] [file] AgICAgICAgICAgICAgICAgICAgICAgICAgICAgICAgICAgICAgICAgICAgICAgICAgICAgICAgICAgIC AgICAgICAgICAgICAgICAgICAgICAgICAgICAgDQogICAgICAgICAgICAgICAgICAgICAgICAgICAgIC AgICAgICAgICAgICAgICAgICAgICAgICAgICAgICAg ICAgICAgICAgICAgICAgICAgICAgICAgICAgICAgICAgICAgICAgDQogICAgICAgICAgICAgICAgICAg ICAgICAgICAgICAgICAgICAgICAgICAgICAgICAgICAgICAgICAgICAgICAgICAgICAgICAgICAgICAg ICAgICAgICAgICAgICAgICAgICAgDQogICAgICAgIC AgICAgICAgICAgICAgICAgICAgICAgICAgICAgICAgICAgICAgICAgICAgICAgICAgICAgICAgICAgIC AgICAgICAgICAgICAgICAgICAgICAgICAgICAgICAgDQogICAgICAgICAgICAgICAgICAgICAgICAgIC AgICAgICAgICAgICAgICAgICAgICAgICAgICAgICAg ICAgICAgICAgICAgICAgICAgICAgICAgICAgICAgICAgICAgICAgICAgDQogICAgICAgICAgICAgICAg ICAgICAgICAgICAgICAgICAgICAgICAgICAgICAgICAgICAgICAgICAgICAgICAgICAgICAgICAgICAg ICAgICAgICAgICAgICAgICAgICAgICAgDQogICAgIC AgICAgICAgICAgICAgICAgICAgICAgICAgICAgICAgICAgICAgICAgICAgICAgICAgICAgICAgICAgIC AgICAgICAgICAgICAgICAgICAgICAgICAgICAgICAgICAgDQogICAgICAgICAgICAgICAgICAgICAgIC AgICAgICAgICAgICAgICAgICAgICAgICAgICAgICAg ICAgICAgICAgICAgICAgICAgICAgICAgICAgICAgICAgICAgICAgICAgICAgDQogICAgICAgICAgICAg ICAgICAgICAgICAgICAgICAgICAgICAgICAgICAgICAgICAgICAgICAgICAgICAgICAgICAgICAgICAg ICAgICAgICAgICAgICAgICAgICAgICAgICAgDQogIC AgICAgICAgICAgICAgICAgICAgICAgICAgICAgICAgICAgICAgICAgICAgICAgICAgICAgICAgICAgIC ZwNBMmSJZxIBWpJFLyFUHnGFNlTHVtKIMcICMiDWIrKEGzHGLyFPy1M5pjDAMbESOuOQ8uFWx8Or4+DQ sWVfGoNLI9jkAdsP0ZHK1im5TvPXulMWXvq8YwPYx0 SN5HVFBmZQdlEJ0UBBirdf5HAIQdINRkzEQWz4blTxAeBEE6FOEtHavaZV7RMGSjY3slahJfAAShQEXF YMzbMUIKAVfcQERLGXGvKKGmOeVdWcWyYQXsTGDkKYGHIDQ6GWTxXwArJCwfAW8Cy4IhtVR1EXp+Pg0K ZB9mh7EnVCwaIQXoLQ4yge7JBXxMHyCsE1DgfaU7ZE YmGQVhAx6ZVMEtJKBjxOAcWbTkRYXZRbSmF0BrgP05FLFFCu9+ODtktiLgYjgXDnVgCVKwp7JcWAg5YI 5CEWMaRXg2gKEyOMSaW2Mlw4IdDd95PIZnPnbfUVHcxFEcdYAwDmVLENBjhH5jhF7aXUUBCUBzvYB9Ev F1RtMlUkVoDCh3BeZlTY9fODbdYC3DJMG0PRqwZFKd YZNcQ0pHBuFqCSBxUxIqfYnuTD0AMbTsJ6VkvyVrnBYdLSJqPAVLAq3+TKvswsKdZpiCIkTrWDVyt6Pz OGl7NT9NEAWhIUsyDH3RGXShiA1vXXcsDS3CYhKhYGWjLXVPBjBsH11dtPTbGLs9U3YiWcQyKEUwRtem ZXMgPDwvTmFtZXMgWyBdDQogID4+ID4+ASvfFM5SOK ejnwPxIKPeOk4EQXQeMYYqUB6hGMBbOXWbJ2I2oLfsMXYSIaYwL5sdixmaMM0lSMZpE677tTaqwoFwXR JmEUZvGk2DKNHhWFT2JTInlFPnNmVyXHLKJJlqOZ4ZcTFlIYS0zB0tQYvfBJCqPLOaS0uUYyUwsZjvAT 51bGwgbnVsbCBdDQo+Od8MKI2ks1WiPTx5imTwTXkl EFD4JCdeRKDwUVCbPFPzFVW5QUW3NZPFGaIvNOLnVLUpMYvnLAJoIBFbad7SXOXoDBMqFqA5RCOgMAEw QXYyRAkyGUJnXFR5DtfjKPLgOSUqNC4QLiDwWVBtCQTdPUfcFQOuMBTvhk7LWRCfDDLkMZC3AkDfLGBu KTYsRTqmTIToBZR9PnYkVLJoOFMhPM5BFsVyQLNnVG bwEyawCGHtDNMdmf8OXJYoQBJjRXKvQgZxZJAiIKFzQFaaVZJrNJHqFyK0KGYgISTbZL5DAlUnRRHaXD J6MiGkIXDmLFMvzy3UNMKgWNEkRQY9PiRqKNBuEGHaGDdzSCEbNIB4WdgdQVYqJPOzIN4MAgMpEBQnKV zrLFYyOCXpIOVmxm6MRTFqDSTnGyJ9JEIsWYHoVNJw JPxiZUXwCVVxNxNvWJWjWLOqBC4RSmKoJSGmGmV1YxksZNDpKVOgbx0TUGZqHQGtZdU0TLQpQIOnXPBg TCfuTQLyTGEgRMsyNINjTPPtXI1DOxHkXZZsBtG9WFBoZGMvEMNlrv9YDELiDWWgUdl1StOqZEJyDFVg EIiyFJEtZYRhJGRwRILmKBPjHQ2EChMrNTHiKmP7IK isQFYyWWQags1XSHChHDYpTMK5GYRuWKMxAJZkYViqBWTqMVP4Wgg0UTJuVLEoCC7GXsKfDAVmCiT7ZI exNHObANFkhd6YTBKuURVgShRwFHSfCKNeGAZgXOfrSPJyAHR2WjEdYSPyEFYbUQ1IPvPrRRHyAai0UT MsNMUeSLKefd9FUKJcLBUwVjPpOTJtNZFgKUBvDUfn LTRoBXM1BXLkMXAkKWAsPC7MGkDkTFDoJig6GGjyMIMmIEByrm0WCFFyELIoRRO4LNMtACZzCYPeGJjt LBKsVQA1JnS7SNSxBYYqTR0ZQwSuVMdxDQYDBdy1XViiB8m1BTBmAM2GF9Jlr3VoNzNbHULCOVemCO0h ykVcAVRmVc7YJ0fYYbaeUhVqPZF0OBYrHnX6YMWuWW ZwUbTtDXU0AVDqQOWiVK0uSZM3PDV2EGH4HOUwXzJ7DCXcTAAfY9J6Vxg3SVQ4NFXjIlLwEH4NSt5AGs H0HUO6ySGbEp2WYzj5ZEfOLoKzTF0SXMg= ID Date Data Source [id number] 05/28/2021 09:10:59 AM EDT [facility] Name Value Range Interpretation Code Description Data Claribel rce(s) Supporting Document(s) Progress Note [facility] ADLSNv1lTyUPXxFx06/NKKwdLAPjk2QtIThjHQm4ZXveCLBoJ4RzMYD0cI3hKAC5RByNSdXqAqNyOyN3 lbm [file] [id number]+cbo0eo7Mpw4YaB521Q2rdsdSoVrmJvfMdo/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 [file] [id number]== ID Date Data Source [id number] 05/07/2021 08:53:00 AM EDT [facility]) Name Value Range Interpretation Code Description Data Lcaribel rce(s) Supporting Document(s) Hemoglobin A1c/Hemoglobin.total in Blood 8.7 %_of_total_HGB <5.7 Above high normal Hemoglobin a1C CYNDI ([facility]) ID Date Data Source [id number] 05/07/2021 08:53:00 AM EDT [facility]) Name Value Range Interpretation Code Description Data Claribel rce(s) Supporting Document(s) Leukocytes [#/volume] in Blood by Automated count 5.2 thousand/uL 3 .8-10.8 White Blood Cell Count CYNDI ([facility]) Erythrocytes [#/volume] in Blood by Automated count 3.84 million/uL 3.80-5.10 Red Blood Cell Count CYNDI ([facility]) Hemoglobin [Mass/volume] in Blood 11.3 g/dL 11.7-15.5 Below l ow normal Hemoglobin CYNDI ([facility]) Hematocrit [Volume Fraction] of Blood by Automated count 33.0 % 35.0-45.0 Below low normal Hematocrit CY[facility]I ([facility]) Erythrocyte mean corpuscular volume [Entitic volume] by Auto mated count 85.9 fL 80.0-100.0 Mcv CYNDI ([facility]) Erythrocyte mean corpuscular hemoglobin [Entitic mass] by Automated count 29.4 pg 27.0-33.0 Mch CYNDI ([facility]) Erythrocyte mean corpuscular hemoglobin concentration [Mass/volume] by Automated count 34.2 g/dL 32.0-36.0 Mchc CYNDI ([facility]) Erythrocyte distribution width [Ratio] by Automated count 12.7 % 11.0-15.0 Rdw CYNDI ([facility]) Platelets [#/volume] in Blood by Automated count 262 thousand/uL 14 0-400 Platelet Count CYNDI ([facility]) Platelet mean volume [Entitic volume] in Blood by Jonn-Lara 10.0 f L 7.5-12.5 Mpv CYNDI ([facility]) Neutrophils [#/volume] in Blood by Automated count 3052 cells/uL 15 00-7800 Absolute Neutrophils CYNDI ([facility]) Lymphocytes [#/volume] in Blood by Automated count 1758 cells/uL 85 0-3900 Absolute Lymphocytes CYNDI ([facility]) Monocytes [#/volume] in Blood by Automated count 328 cells/uL 200-9 50 Absolute Monocytes CYNDI ([facility]) Eosinophils [#/volume] in Blood by Automated count 21 cells/uL 15- 500 Absolute Eosinophils CYNDI ([facility]) Basophils [#/volume] in Blood by Automated count 42 cells/uL 0-200 Absolute Basophils [facility]NDI ([facility]) Neutrophils/100 leukocytes in Blood by Automated count 58.7 % 38-80 Neutrophils CYNDI ([facility]) Lymphocytes/100 leukocytes in Blood by Automated count 33.8 % 15-49 Lymphocytes CYNDI ([facility]) Monocytes/100 leukocytes in Blood by Automated count 6.3 % 0-13 Monocytes CYNDI ([facility]) Eosinophils/100 leukocytes in Blood by Automated count 0.4 % 0-8 Eosinophils [facility] ([facility]) Basophils/100 leukocytes in Blood by Automated count 0.8 % 0-2 Basophils [facility] ([facility]) ID Date Data Source [id number] 05/07/2021 08:53:00 AM EDT [facility] ([facility]) Name Value Range Interpretation Code Description Data Claribel rce(s) Supporting Document(s) Glucose [Mass/volume] in Serum or Plasma 153 mg/dL 65-99 Above high normal Glucose [facility] ([facility]) Urea nitrogen [Mass/volume] in Serum or Plasma 18 mg/dL 7-25 Urea Nitrogen (BUN) [facility] ([facility]) Creatinine [Mass/volume] in Serum or Plasma 0.88 mg/dL 0.50-1.10 Creatinine [facility] ([facility]) Glomerular filtration rate/1.73 sq M.pre dicted among non-blacks [Volume Rate/Area] in Serum, Plasma or Blood by Creatinine-based formula (CKD-EPI) 86 mL/min/1.73m2 > or = 60 eGFR Non-afr. [place] [facility] ([facility]) Glomerular filtration rate/1.73 sq M.pre dicted among blacks [Volume Rate/Area] in Serum, Plasma or Blood by Creatinine-based formula (CKD-EPI) 100 mL/min/1.73m2 > or = 60 eGFR [facility] ([facility]) Urea nitrogen/Creatinine [Mass Ratio] in Serum or Plasma not applic able 6-22 BUN/creatinine Ratio [facility] ([facility]) Sodium [Moles/volume] in Serum or Plasma 139 mmol/L 135-146 Sodium [facility] ([facility]) Potassium [Moles/volume] in Serum or Plasma 3.9 mmol/L 3.5-5.3 Potassium [facility] ([facility]) Chloride [Moles/volume] in Serum or Plasma 105 mmol/L 98-110 Chloride [facility] ([facility]) Carbon dioxide, total [Moles/volume] in Serum or Plasma 28 mmol/L 20-32 Carbon Dioxide [facility]) Calcium [Mass/volume] in Serum or Plasma 9.4 mg/dL 8.6-10.2 Calcium [place] ([facility]) Protein [Mass/volume] in Serum or Plasma 6.4 g/dL 6.1-8.1 Protein, Total CYNDI ([facility]) Albumin [Mass/volume] in Serum or Plasma 3.7 g/dL 3.6-5.1 Albumin [facility] ([facility]) Globulin [Mass/volume] in Serum by calculation 2.7 g/dL_(calc) 1.9- 3.7 Globulin CYNDI ([facility]) Albumin/Globulin [Mass Ratio] in Serum or Plasma 1.4 (calc) 1.0-2 .5 Albumin/globulin Ratio [facility] ([facility]) Bilirubin.total [Mass/volume] in Serum or Plasma 0.3 mg/dL 0.2-1 .2 Bilirubin, Total [place] ([facility]) Alkaline phosphatase [Enzymatic activity/volume] in Serum or Plasma 52 U/L 31-125 Alkaline Phosphatase CYNDI ([facility]) Aspartate aminotransferase [Enzymatic activity/volume] in Serum or Plasma 13 U/L 10-30 Ast [facility] ([facility]) Alanine aminotransferase [Enzymatic activity/volume] in Seru m or Plasma 10 U/L 6-29 Alt CYNDI ([facility]) ID Date Data Source [id number] 05/07/2021 08:53:00 AM EDT [place] ([facility]) Name Value Range Interpretation Code Description Data Claribel rce(s) Supporting Document(s) Triiodothyronine resin uptake (T3RU) in Serum or Plasma 30 % 22 -35 T3 Uptake [facility] ([facility]) Thyroxine (T4) [Mass/volume] in Serum or Plasma 7.6 mcg/dL 5.1-11 .9 T4 (Thyroxine), Total [facility] ([facility]) Thyroxine (T4) free index in Serum or Plasma by calculation 1.4-3.8 Free T4 Index (T7) [facility] ([facility]) Thyrotropin [Units/volume] in Serum or Plasma 2.45 mIU/L Tsh [facility]) ID Date Data Source [id number] 05/07/2021 08:53:00 AM EDT CYNDI ([facility]) Name Value Range Interpretation Code Description Data Claribel rce(s) Supporting Document(s) Triglyceride [Mass/volume] in Serum or Plasma 111 mg/dL <150 Triglycerides CYNDI ([facility]) Cholesterol [Mass/volume] in Serum or Plasma 198 mg/dL <200 Cholesterol, Total CYNDI ([facility]) Cholesterol in HDL [Mass/volume] in Serum or Plasma 48 mg/dL > or = 50 Below low normal HDL Cholesterol CY[facility] ([facility]) Cholesterol in LDL [Mass/volume] in Serum or Plasma by calculation 128 mg/dL_(calc) Above high normal LDL-cholesterol CYNDI ([facility]) Cholesterol.total/Cholesterol in HDL [Mass Ratio] in Serum o r Plasma 4.1 (calc) <5.0 Chol/hdlc Ratio [facility]I ([facility]) Cholesterol non HDL [Mass/volume] in Serum or Plasma 150 mg/dL_( calc) <130 Above high normal Non HDL Cholesterol [facility] ([facility]) ID Date Data Source [id number] 05/07/2021 08:53:00 AM EDT CYNDI ([facility]) Name Value Range Interpretation Code Description Data Claribel rce(s) Supporting Document(s) Iron [Mass/volume] in Serum or Plasma 40 mcg/dL 40-190 Iron, Total CYNDI ([facility]) Iron binding capacity [Mass/volume] in Serum or Plasma 311 m cg/dL_(calc) 250-450 Iron Binding Capacity CYND[facility] ([facility]) Iron saturation [Mass Fraction] in Serum or Plasma 13 %_(calc) 16-45 Below low normal % Saturation [facility] ([facility]) Ferritin [Mass/volume] in Serum or Plasma 48 NG/mL 16-154 Ferritin [facility] ([facility]) ID Date Data Source [id number] 04/02/2021 08:10:00 AM [facility] Name Value Range Interpretation Code Description Data Claribel rce(s) Supporting Document(s) bedside glucose 78 mg/dL 70-105 Bedside Glucose ATHJuan Carlos MCKEON ([facility]) ID Date Data Source [id number] 04/02/2021 08:10:00 AM EDT [facility]) Name Value Range Interpretation Code Description Data Claribel rce(s) Supporting Document(s) bedside glucose 78 mg/dL 70-105 Bedside Glucose ATHJuan Carlos MCKEON ([facility]) ID Date Data Source [id number] 04/02/2021 08:10:00 AM EDT CYNDI ([facility]) Name Value Range Interpretation Code Description Data Claribel rce(s) Supporting Document(s) bedside glucose 78 mg/dL 70-105 Bedside Glucose ATHJuan Carlos MCKEON ([facility]) ID Date Data Source [id number] 04/02/2021 05:24:00 AM EDT [facility] ([facility]) Name Value Range Interpretation Code Description Data Claribel rce(s) Supporting Document(s) glucose, fasting 50 mg/dL 70-100 Below low normal Glucose, Fast ing [facility] ([facility]) blood urea nitrogen 9 mg/dL 7-18 Blood Urea Nitro gen [facility] ([facility]) creatinine for GFR 0.62 mg/dL 0.55-1.30 Creatinine for GF R [facility] ([facility]) glomerular filtration rate > 60.0 >60 Glomerula r Filtration Rate [facility] ([facility]) sodium level 143 mEq/L 136-145 Sodium Level [facility] ([facility]) potassium serum 3.2 mEq/L 3.5-5.1 Below low normal Potassium Seru m [facility] ([facility]) chloride level 112 mEq/L 98-107 Above high normal Chloride Level [facility] ([facility]) carbon dioxide level 28 mEq/L 21-32 Carbon Dioxide Level [place] ([facility]) anion gap 3 mEq/L 8-16 Below low normal Anion Gap [facility] ( [facility]) calcium level 8.5 mg/dL 8.5-10.1 Calcium Level [facility] ( [facility]) ID Date Data Source [id number] 04/02/2021 05:24:00 AM EDT [place] ([facility]) Name Value Range Interpretation Code Description Data Claribel rce(s) Supporting Document(s) white blood count 3.1 10 4.0-10.0 Below low normal White Blood Count [facility] ([facility]) red blood count 3.63 10 4.00-5.40 Below low normal Red Blood Coun t [facility] ([facility]) hemoglobin 10.8 g/dL 12.0-15.5 Below low normal Hemoglobin [facility] ( [facility]) hematocrit 31.8 % 36.0-47.0 Below low normal Hematocrit [facility] ( [facility]) mean corpuscular volume 87.6 fL 80.0-96.0 Mean Corpusc ular Volume [facility] ([facility]) mean corpuscular hemoglobin 29.8 pg 27.0-33.0 Mean Cor puscular Hemoglobin [place] ([facility]) mean corpuscular HGB conc 34.0 g/dL 32.0-36.5 Mean Corpu scular HGB Conc [facility] ([facility]) red cell distribution width 11.9 % 11.5-14.5 Red Cell Distribution Width [facility] ([facility]) platelet count, automated 196 10 150-450 Platelet C ount, Automated [place] ([facility]) nucleated red blood cell % 0.0 % 0-0 Nucleated Red Blood Cell % [facility] ([facility]) ID Date Data Source [id number] 04/02/2021 05:24:00 AM EDT [facility]) Name Value Range Interpretation Code Description Data Claribel rce(s) Supporting Document(s) glucose, fasting 50 mg/dL 70-100 Below low normal Glucose, Fast ing [place] ([facility]) blood urea nitrogen 9 mg/dL 7-18 Blood Urea Nitro gen [place] ([facility]) creatinine for GFR 0.62 mg/dL 0.55-1.30 Creatinine for GF R [facility] ([facility]) glomerular filtration rate > 60.0 >60 Glomerula r Filtration Rate [facility]I ([facility]) sodium level 143 mEq/L 136-145 Sodium Level [facility] (No [facility]) potassium serum 3.2 mEq/L 3.5-5.1 Below low normal Potassium Seru m [facility] ([facility]) chloride level 112 mEq/L 98-107 Above high normal Chloride Level [facility] ([facility]) carbon dioxide level 28 mEq/L 21-32 Carbon Dioxide Level [place] ([facility]) anion gap 3 mEq/L 8-16 Below low normal Anion Gap [facility] ( [facility]) calcium level 8.5 mg/dL 8.5-10.1 Calcium Level [place] ( [facility]) ID Date Data Source [id number] 04/02/2021 05:24:00 AM EDT [facility]) Name Value Range Interpretation Code Description Data Claribel rce(s) Supporting Document(s) white blood count 3.1 10 4.0-10.0 Below low normal White Blood Count [place] ([facility]) red blood count 3.63 10 4.00-5.40 Below low normal Red Blood Coun t [facility]) hemoglobin 10.8 g/dL 12.0-15.5 Below low normal Hemoglobin [facility]) hematocrit 31.8 % 36.0-47.0 Below low normal Hematocrit [place] ( [facility]) mean corpuscular volume 87.6 fL 80.0-96.0 Mean Corpusc ular Volume [place] ([facility]) mean corpuscular hemoglobin 29.8 pg 27.0-33.0 Mean Cor puscular Hemoglobin [place] ([facility]) mean corpuscular HGB conc 34.0 g/dL 32.0-36.5 Mean Corpu scular HGB Conc [facility] ([facility]) red cell distribution width 11.9 % 11.5-14.5 Red Cell Distribution Width [facility] ([facility]) platelet count, automated 196 10 150-450 Platelet C ount, Automated [place] ([facility]) nucleated red blood cell % 0.0 % 0-0 Nucleated Red Blood Cell % [facility] ([facility]) ID Date Data Source [id number] 04/02/2021 05:24:00 AM EDT [place] ([facility]) Name Value Range Interpretation Code Description Data Claribel rce(s) Supporting Document(s) glucose, fasting 50 mg/dL 70-100 Below low normal Glucose, Fast ing [place] ([facility]) blood urea nitrogen 9 mg/dL 7-18 Blood Urea Nitro gen [place] ([facility]) creatinine for GFR 0.62 mg/dL 0.55-1.30 Creatinine for GF R [place] ([facility]) glomerular filtration rate > 60.0 >60 Glomerula r Filtration Rate [place] ([facility]) sodium level 143 mEq/L 136-145 Sodium Level [facility] (No [facility]) potassium serum 3.2 mEq/L 3.5-5.1 Below low normal Potassium Seru m [facility] ([facility]) chloride level 112 mEq/L 98-107 Above high normal Chloride Level [place] ([facility]) carbon dioxide level 28 mEq/L 21-32 Carbon Dioxide Level [facility]) anion gap 3 mEq/L 8-16 Below low normal Anion Gap [facility] ( [facility]) calcium level 8.5 mg/dL 8.5-10.1 Calcium Level [place] ( [facility]) ID Date Data Source [id number] 04/02/2021 05:24:00 AM EDT [place] ([facility]) Name Value Range Interpretation Code Description Data Claribel rce(s) Supporting Document(s) white blood count 3.1 10 4.0-10.0 Below low normal White Blood Count [facility] ([facility]) red blood count 3.63 10 4.00-5.40 Below low normal Red Blood Coun t [place] ([facility]) hemoglobin 10.8 g/dL 12.0-15.5 Below low normal Hemoglobin [place] ( [facility]) hematocrit 31.8 % 36.0-47.0 Below low normal Hematocrit [facility] ( [facility]) mean corpuscular volume 87.6 fL 80.0-96.0 Mean Corpusc ular Volume [place] ([facility]) mean corpuscular hemoglobin 29.8 pg 27.0-33.0 Mean Cor puscular Hemoglobin [facility]NDI ([facility]) mean corpuscular HGB conc 34.0 g/dL 32.0-36.5 Mean Corpu scular HGB Conc [facility]I ([facility]) red cell distribution width 11.9 % 11.5-14.5 Red Cell Distribution Width [facility] ([facility]) platelet count, automated 196 10 150-450 Platelet C ount, Automated [facility] ([facility]) nucleated red blood cell % 0.0 % 0-0 Nucleated Red Blood Cell % [facility] ([facility]) ID Date Data Source [id number] 04/01/2021 08:39:00 PM EDT [facility]) Name Value Range Interpretation Code Description Data Claribel rce(s) Supporting Document(s) bedside glucose 155 mg/dL 70-105 Above high normal Bedside Gluco se [facility]) ID Date Data Source [id number] 04/01/2021 08:39:00 PM EDT [facility]) Name Value Range Interpretation Code Description Data Claribel rce(s) Supporting Document(s) bedside glucose 155 mg/dL 70-105 Above high normal Bedside Gluco se [facility]) ID Date Data Source [id number] 04/01/2021 08:39:00 PM EDT [facility]) Name Value Range Interpretation Code Description Data Claribel rce(s) Supporting Document(s) bedside glucose 155 mg/dL 70-105 Above high normal Bedside Gluco se [facility]) ID Date Data Source [id number] 04/01/2021 04:57:00 [facility] Name Value Range Interpretation Code Description Data Claribel rce(s) Supporting Document(s) bedside glucose 91 mg/dL 70-105 Bedside Glucose ATHJuan Carlos MCKEON ([facility]) ID Date Data Source [id number] 04/01/2021 04:57:00 PM EDT CYNDI ([facility]) Name Value Range Interpretation Code Description Data Claribel rce(s) Supporting Document(s) bedside glucose 91 mg/dL 70-105 Bedside Glucose ATHE LINDA ([facility]) ID Date Data Source [id number] 04/01/2021 04:57:00 PM EDT [facility]) Name Value Range Interpretation Code Description Data Claribel rce(s) Supporting Document(s) bedside glucose 91 mg/dL 70-105 Bedside Glucose ATHE LINDA ([facility]) ID Date Data Source [id number] 04/01/2021 11:45:00 AM EDT [facility]) Name Value Range Interpretation Code Description Data Claribel rce(s) Supporting Document(s) bedside glucose 171 mg/dL 70-105 Above high normal Bedside Gluco se [facility]) ID Date Data Source [id number] 04/01/2021 11:45:00 AM EDT [facility]) Name Value Range Interpretation Code Description Data Claribel rce(s) Supporting Document(s) bedside glucose 171 mg/dL 70-105 Above high normal Bedside Gluco se [facility]) ID Date Data Source [id number] 04/01/2021 11:45:00 AM EDT [facility]) Name Value Range Interpretation Code Description Data Claribel rce(s) Supporting Document(s) bedside glucose 171 mg/dL 70-105 Above high normal Bedside Gluco se CYNDI ([facility]) ID Date Data Source [id number] 04/01/2021 06:09:00 AM EDT [place] ([facility]) Name Value Range Interpretation Code Description Data Claribel rce(s) Supporting Document(s) glucose, fasting 71 mg/dL 70-100 Glucose, Fasting AT [facility] ([facility]) blood urea nitrogen 9 mg/dL 7-18 Blood Urea Nitro gen [place] ([facility]) creatinine for GFR 0.74 mg/dL 0.55-1.30 Creatinine for GF R [place] ([facility]) glomerular filtration rate > 60.0 >60 Glomerula r Filtration Rate [facility]I ([facility]) sodium level 146 mEq/L 136-145 Above high normal Sodium Level ATH NIKOLAS ([facility]) potassium serum 3.6 mEq/L 3.5-5.1 Potassium Serum ATHE NA ([facility]) chloride level 115 mEq/L 98-107 Above high normal Chloride Level [facility]I ([facility]) carbon dioxide level 26 mEq/L 21-32 Carbon Dioxide Level [place] ([facility]) anion gap 5 mEq/L 8-16 Below low normal Anion Gap [facility] ( [facility]) calcium level 9.6 mg/dL 8.5-10.1 Calcium Level [place] ( [facility]) ID Date Data Source [id number] 04/01/2021 06:09:00 AM EDT [place] ([facility]) Name Value Range Interpretation Code Description Data Claribel rce(s) Supporting Document(s) white blood count 4.1 10 4.0-10.0 White Blood Count CYNDI ([facility]) red blood count 3.92 10 4.00-5.40 Below low normal Red Blood Coun t [facility] ([facility]) hemoglobin 11.5 g/dL 12.0-15.5 Below low normal Hemoglobin [place] ( [facility]) hematocrit 34.3 % 36.0-47.0 Below low normal Hematocrit CYNDI ( [facility]) mean corpuscular volume 87.5 fL 80.0-96.0 Mean Corpusc ular Volume [place] ([facility]) mean corpuscular hemoglobin 29.3 pg 27.0-33.0 Mean Cor puscular Hemoglobin [facility]I ([facility]) mean corpuscular HGB conc 33.5 g/dL 32.0-36.5 Mean Corpu scular HGB Conc [facility] ([facility]) red cell distribution width 12.2 % 11.5-14.5 Red Cell Distribution Width [facility] ([facility]) platelet count, automated 205 10 150-450 Platelet C ount, Automated [place] ([facility]) nucleated red blood cell % 0.0 % 0-0 Nucleated Red Blood Cell % [facility] ([facility]) ID Date Data Source [id number] 04/01/2021 06:09:00 AM EDT [place] ([facility]) Name Value Range Interpretation Code Description Data Claribel rce(s) Supporting Document(s) glucose, fasting 71 mg/dL 70-100 Glucose, Fasting AT [facility]) blood urea nitrogen 9 mg/dL 7-18 Blood Urea Nitro gen [place] ([facility]) creatinine for GFR 0.74 mg/dL 0.55-1.30 Creatinine for GF R [place] ([facility]) glomerular filtration rate > 60.0 >60 Glomerula r Filtration Rate [facility] ([facility]) sodium level 146 mEq/L 136-145 Above high normal Sodium Level ATH NIKOLAS ([facility]) potassium serum 3.6 mEq/L 3.5-5.1 Potassium Serum ATH NA ([facility]) chloride level 115 mEq/L 98-107 Above high normal Chloride Level [facility] ([facility]) carbon dioxide level 26 mEq/L 21-32 Carbon Dioxide Level [place] ([facility]) anion gap 5 mEq/L 8-16 Below low normal Anion Gap [place] ( [facility]) calcium level 9.6 mg/dL 8.5-10.1 Calcium Level [place] ( [facility]) ID Date Data Source [id number] 04/01/2021 06:09:00 AM EDT [place] ([facility]) Name Value Range Interpretation Code Description Data Claribel rce(s) Supporting Document(s) white blood count 4.1 10 4.0-10.0 White Blood Count [facility] ([facility]) red blood count 3.92 10 4.00-5.40 Below low normal Red Blood Coun t [facility] ([facility]) hemoglobin 11.5 g/dL 12.0-15.5 Below low normal Hemoglobin [place] ( [facility]) hematocrit 34.3 % 36.0-47.0 Below low normal Hematocrit [facility] ( [facility]) mean corpuscular volume 87.5 fL 80.0-96.0 Mean Corpusc ular Volume [place] ([facility]) mean corpuscular hemoglobin 29.3 pg 27.0-33.0 Mean Cor puscular Hemoglobin [facility] ([facility]) mean corpuscular HGB conc 33.5 g/dL 32.0-36.5 Mean Corpu scular HGB Conc [facility] ([facility]) red cell distribution width 12.2 % 11.5-14.5 Red Cell Distribution Width [facility] ([facility]) platelet count, automated 205 10 150-450 Platelet C ount, Automated [place] ([facility]) nucleated red blood cell % 0.0 % 0-0 Nucleated Red Blood Cell % [facility] ([facility]) ID Date Data Source [id number] 04/01/2021 06:09:00 AM EDT [place] ([facility]) Name Value Range Interpretation Code Description Data Claribel rce(s) Supporting Document(s) glucose, fasting 71 mg/dL 70-100 Glucose, Fasting AT [facility] ([facility]) blood urea nitrogen 9 mg/dL 7-18 Blood Urea Nitro gen [place] ([facility]) creatinine for GFR 0.74 mg/dL 0.55-1.30 Creatinine for GF R [facility]NDI ([facility]) glomerular filtration rate > 60.0 >60 Glomerula r Filtration Rate [facility]I ([facility]) sodium level 146 mEq/L 136-145 Above high normal Sodium Level ATH NIKOLAS ([facility]) potassium serum 3.6 mEq/L 3.5-5.1 Potassium Serum ATHE NA ([facility]) chloride level 115 mEq/L 98-107 Above high normal Chloride Level CYNDI ([facility]) carbon dioxide level 26 mEq/L 21-32 Carbon Dioxide Level [facility]I ([facility]) anion gap 5 mEq/L 8-16 Below low normal Anion Gap CYNDI ( [facility]) calcium level 9.6 mg/dL 8.5-10.1 Calcium Level [facility] ( [facility]) ID Date Data Source [id number] 04/01/2021 06:09:00 AM EDT [place] ([facility]) Name Value Range Interpretation Code Description Data Claribel rce(s) Supporting Document(s) white blood count 4.1 10 4.0-10.0 White Blood Count CYNDI ([facility]) red blood count 3.92 10 4.00-5.40 Below low normal Red Blood Coun t CYNDI ([facility]) hemoglobin 11.5 g/dL 12.0-15.5 Below low normal Hemoglobin CYNDI ( [facility]) hematocrit 34.3 % 36.0-47.0 Below low normal Hematocrit CY[facility]I ( [facility]) mean corpuscular volume 87.5 fL 80.0-96.0 Mean Corpusc ular Volume CYNDI ([facility]) mean corpuscular hemoglobin 29.3 pg 27.0-33.0 Mean Cor puscular Hemoglobin CYNDI ([facility]) mean corpuscular HGB conc 33.5 g/dL 32.0-36.5 Mean Corpu scular HGB Conc CYNDI ([facility]) red cell distribution width 12.2 % 11.5-14.5 Red Cell Distribution Width CYNDI ([facility]) platelet count, automated 205 10 150-450 Platelet C ount, Automated CYNDI ([facility]) nucleated red blood cell % 0.0 % 0-0 Nucleated Red Blood Cell % [facility] ([facility]) ID Date Data Source [id number] 03/31/2021 08:42:00 PM EDT [facility]) Name Value Range Interpretation Code Description Data Claribel rce(s) Supporting Document(s) bedside glucose 182 mg/dL 70-105 Above high normal Bedside Gluco se [facility]) ID Date Data Source [id number] 03/31/2021 08:42:00 PM EDT [facility]) Name Value Range Interpretation Code Description Data Claribel rce(s) Supporting Document(s) bedside glucose 182 mg/dL 70-105 Above high normal Bedside Gluco se [facility]) ID Date Data Source [id number] 03/31/2021 08:42:00 PM EDT [facility]) Name Value Range Interpretation Code Description Data Claribel rce(s) Supporting Document(s) bedside glucose 182 mg/dL 70-105 Above high normal Bedside Gluco se [facility]) ID Date Data Source [id number] 03/31/2021 04:45:00 PM EDT [facility]) Name Value Range Interpretation Code Description Data Claribel rce(s) Supporting Document(s) bedside glucose 166 mg/dL 70-105 Above high normal Bedside Gluco se [facility]) ID Date Data Source [id number] 03/31/2021 04:45:00 PM EDT [facility]) Name Value Range Interpretation Code Description Data Claribel rce(s) Supporting Document(s) bedside glucose 166 mg/dL 70-105 Above high normal Bedside Gluco se [facility]) ID Date Data Source [id number] 03/31/2021 04:45:00 PM EDT [facility]) Name Value Range Interpretation Code Description Data Claribel rce(s) Supporting Document(s) bedside glucose 166 mg/dL 70-105 Above high normal Bedside Gluco se [facility] ([facility]) ID Date Data Source [id number] 03/31/2021 11:55:00 AM EDT [facility]) Name Value Range Interpretation Code Description Data Claribel rce(s) Supporting Document(s) bedside glucose 256 mg/dL 70-105 Above high normal Bedside Gluco se [facility] ([facility]) ID Date Data Source [id number] 03/31/2021 11:55:00 AM EDT [facility]) Name Value Range Interpretation Code Description Data Claribel rce(s) Supporting Document(s) bedside glucose 256 mg/dL 70-105 Above high normal Bedside Gluco se [facility] ([facility]) ID Date Data Source [id number] 03/31/2021 11:55:00 AM EDT [facility]) Name Value Range Interpretation Code Description Data Claribel rce(s) Supporting Document(s) bedside glucose 256 mg/dL 70-105 Above high normal Bedside Gluco se [facility] ([facility]) ID Date Data Source [id number] 03/31/2021 06:54:00 AM EDT [facility]) Name Value Range Interpretation Code Description Data Claribel rce(s) Supporting Document(s) bedside glucose 154 mg/dL 70-105 Above high normal Bedside Gluco se [facility]) ID Date Data Source [id number] 03/31/2021 06:54:00 AM EDT [facility]) Name Value Range Interpretation Code Description Data Claribel rce(s) Supporting Document(s) bedside glucose 154 mg/dL 70-105 Above high normal Bedside Gluco se [facility] ([facility]) ID Date Data Source [id number] 03/31/2021 06:54:00 AM EDT [facility]) Name Value Range Interpretation Code Description Data Claribel rce(s) Supporting Document(s) bedside glucose 154 mg/dL 70-105 Above high normal Bedside Gluco se [facility]) ID Date Data Source [id number] 03/31/2021 06:04:00 AM EDT [facility]) Name Value Range Interpretation Code Description Data Claribel rce(s) Supporting Document(s) bedside glucose 139 mg/dL 70-105 Above high normal Bedside Gluco se [facility]) ID Date Data Source [id number] 03/31/2021 06:04:00 AM EDT [facility]) Name Value Range Interpretation Code Description Data Claribel rce(s) Supporting Document(s) bedside glucose 139 mg/dL 70-105 Above high normal Bedside Gluco se [facility]) ID Date Data Source [id number] 03/31/2021 06:04:00 AM EDT [facility]) Name Value Range Interpretation Code Description Data Claribel rce(s) Supporting Document(s) bedside glucose 139 mg/dL 70-105 Above high normal Bedside Gluco se [facility]) ID Date Data Source [id number] 03/31/2021 05:16:00 AM EDT [facility]) Name Value Range Interpretation Code Description Data Claribel rce(s) Supporting Document(s) bedside glucose 132 mg/dL 70-105 Above high normal Bedside Gluco se [facility] ([facility]) ID Date Data Source [id number] 03/31/2021 05:16:00 AM EDT [facility]) Name Value Range Interpretation Code Description Data Claribel rce(s) Supporting Document(s) bedside glucose 132 mg/dL 70-105 Above high normal Bedside Gluco se [facility]) ID Date Data Source [id number] 03/31/2021 05:16:00 AM EDT [facility]) Name Value Range Interpretation Code Description Data Claribel rce(s) Supporting Document(s) bedside glucose 132 mg/dL 70-105 Above high normal Bedside Gluco se [facility] ([facility]) ID Date Data Source [id number] 03/31/2021 05:10:00 AM EDT [facility]) Name Value Range Interpretation Code Description Data Claribel rce(s) Supporting Document(s) glucose, fasting 128 mg/dL 70-100 Above high normal Glucose, Fas ting [facility] ([facility]) blood urea nitrogen 7 mg/dL 7-18 Blood Urea Nitro gen [facility] ([facility]) creatinine for GFR 1.04 mg/dL 0.55-1.30 Creatinine for GF R [facility] ([facility]) glomerular filtration rate > 60.0 >60 Glomerula r Filtration Rate CYNDI ([facility]) sodium level 142 mEq/L 136-145 Sodium Level CYNDI ([facility]) potassium serum 3.6 mEq/L 3.5-5.1 Potassium Serum ATH NA ([facility]) chloride level 118 mEq/L 98-107 Above high normal Chloride Level [facility] ([facility]) carbon dioxide level 19 mEq/L 21-32 Below low normal Carbon Di oxide Level [facility] ([facility]) anion gap 5 mEq/L 8-16 Below low normal Anion Gap [facility] ( [facility]) calcium level 8.3 mg/dL 8.5-10.1 Below low normal Calcium Level AT [facility] ([facility]) ID Date Data Source [id number] 03/31/2021 05:10:00 AM EDT [facility] ([facility]) Name Value Range Interpretation Code Description Data Claribel rce(s) Supporting Document(s) white blood count 5.1 10 4.0-10.0 White Blood Count [facility] ([facility]) red blood count 3.65 10 4.00-5.40 Below low normal Red Blood Coun t [facility] ([facility]) hemoglobin 10.9 g/dL 12.0-15.5 Below low normal Hemoglobin [facility] ( [facility]) hematocrit 32.5 % 36.0-47.0 Below low normal Hematocrit [facility] ( [facility]) mean corpuscular volume 89.0 fL 80.0-96.0 Mean Corpusc ular Volume [facility] ([facility]) mean corpuscular hemoglobin 29.9 pg 27.0-33.0 Mean Cor puscular Hemoglobin [facility] ([facility]) mean corpuscular HGB conc 33.5 g/dL 32.0-36.5 Mean Corpu scular HGB Conc [facility] ([facility]) red cell distribution width 12.1 % 11.5-14.5 Red Cell Distribution Width [facility] ([facility]) platelet count, automated 220 10 150-450 Platelet C ount, Automated [facility] ([facility]) nucleated red blood cell % 0.0 % 0-0 Nucleated Red Blood Cell % [facility] ([facility]) ID Date Data Source [id number] 03/31/2021 05:10:00 AM EDT [facility]) Name Value Range Interpretation Code Description Data Claribel rce(s) Supporting Document(s) glucose, fasting 128 mg/dL 70-100 Above high normal Glucose, Fas ting [facility] ([facility]) blood urea nitrogen 7 mg/dL 7-18 Blood Urea Nitro gen [facility] ([facility]) creatinine for GFR 1.04 mg/dL 0.55-1.30 Creatinine for GF R CYNDI ([facility]) glomerular filtration rate > 60.0 >60 Glomerula r Filtration Rate [facility]I ([facility]) sodium level 142 mEq/L 136-145 Sodium Level [facility] ([facility]) potassium serum 3.6 mEq/L 3.5-5.1 Potassium Serum ATHE NA ([facility]) chloride level 118 mEq/L 98-107 Above high normal Chloride Level [facility] ([facility]) carbon dioxide level 19 mEq/L 21-32 Below low normal Carbon Di oxide Level [facility] ([facility]) anion gap 5 mEq/L 8-16 Below low normal Anion Gap [facility] ( [facility]) calcium level 8.3 mg/dL 8.5-10.1 Below low normal Calcium Level AT [facility]) ID Date Data Source [id number] 03/31/2021 05:10:00 AM EDT [facility] ([facility]) Name Value Range Interpretation Code Description Data Claribel rce(s) Supporting Document(s) white blood count 5.1 10 4.0-10.0 White Blood Count [facility] ([facility]) red blood count 3.65 10 4.00-5.40 Below low normal Red Blood Coun t [facility] ([facility]) hemoglobin 10.9 g/dL 12.0-15.5 Below low normal Hemoglobin [facility] ( [facility]) hematocrit 32.5 % 36.0-47.0 Below low normal Hematocrit [facility] ( [facility]) mean corpuscular volume 89.0 fL 80.0-96.0 Mean Corpusc ular Volume [facility] ([facility]) mean corpuscular hemoglobin 29.9 pg 27.0-33.0 Mean Cor puscular Hemoglobin [facility] ([facility]) mean corpuscular HGB conc 33.5 g/dL 32.0-36.5 Mean Corpu scular HGB Conc CYNDI ([facility]) red cell distribution width 12.1 % 11.5-14.5 Red Cell Distribution Width [facility] ([facility]) platelet count, automated 220 10 150-450 Platelet C ount, Automated [facility] ([facility]) nucleated red blood cell % 0.0 % 0-0 Nucleated Red Blood Cell % [facility] ([facility]) ID Date Data Source [id number] 03/31/2021 05:10:00 AM EDT [facility]) Name Value Range Interpretation Code Description Data Claribel rce(s) Supporting Document(s) glucose, fasting 128 mg/dL 70-100 Above high normal Glucose, Fas ting [facility] ([facility]) blood urea nitrogen 7 mg/dL 7-18 Blood Urea Nitro gen [facility] ([facility]) creatinine for GFR 1.04 mg/dL 0.55-1.30 Creatinine for GF R [facility] ([facility]) glomerular filtration rate > 60.0 >60 Glomerula r Filtration Rate [facility] ([facility]) sodium level 142 mEq/L 136-145 Sodium Level [facility] (No [facility]) potassium serum 3.6 mEq/L 3.5-5.1 Potassium Serum [facility] NA ([facility]) chloride level 118 mEq/L 98-107 Above high normal Chloride Level [facility] ([facility]) carbon dioxide level 19 mEq/L 21-32 Below low normal Carbon Di oxide Level [facility] ([facility]) anion gap 5 mEq/L 8-16 Below low normal Anion Gap [facility] ( [facility]) calcium level 8.3 mg/dL 8.5-10.1 Below low normal Calcium Level AT [facility]) ID Date Data Source [id number] 03/31/2021 05:10:00 AM EDT [facility]) Name Value Range Interpretation Code Description Data Claribel rce(s) Supporting Document(s) white blood count 5.1 10 4.0-10.0 White Blood Count [facility] ([facility]) red blood count 3.65 10 4.00-5.40 Below low normal Red Blood Coun t [facility] ([facility]) hemoglobin 10.9 g/dL 12.0-15.5 Below low normal Hemoglobin [facility]I ( [facility]) hematocrit 32.5 % 36.0-47.0 Below low normal Hematocrit [facility] ( [facility]) mean corpuscular volume 89.0 fL 80.0-96.0 Mean Corpusc ular Volume [facility] ([facility]) mean corpuscular hemoglobin 29.9 pg 27.0-33.0 Mean Cor puscular Hemoglobin [facility]I ([facility]) mean corpuscular HGB conc 33.5 g/dL 32.0-36.5 Mean Corpu scular HGB Conc [facility]I ([facility]) red cell distribution width 12.1 % 11.5-14.5 Red Cell Distribution Width [facility] ([facility]) platelet count, automated 220 10 150-450 Platelet C ount, Automated [facility] ([facility]) nucleated red blood cell % 0.0 % 0-0 Nucleated Red Blood Cell % [facility] ([facility]) ID Date Data Source [id number] 03/31/2021 04:06:00 AM EDT [facility]) Name Value Range Interpretation Code Description Data Claribel rce(s) Supporting Document(s) bedside glucose 150 mg/dL 70-105 Above high normal Bedside Gluco se [facility]) ID Date Data Source [id number] 03/31/2021 04:06:00 AM EDT [facility]) Name Value Range Interpretation Code Description Data Claribel rce(s) Supporting Document(s) bedside glucose 150 mg/dL 70-105 Above high normal Bedside Gluco se [facility]) ID Date Data Source [id number] 03/31/2021 04:06:00 AM EDT [facility]) Name Value Range Interpretation Code Description Data Claribel rce(s) Supporting Document(s) bedside glucose 150 mg/dL 70-105 Above high normal Bedside Gluco se [facility] ([facility]) ID Date Data Source [id number] 03/31/2021 03:17:00 AM EDT [facility]) Name Value Range Interpretation Code Description Data Claribel rce(s) Supporting Document(s) bedside glucose 164 mg/dL 70-105 Above high normal Bedside Gluco se [facility] ([facility]) ID Date Data Source [id number] 03/31/2021 03:17:00 AM EDT [facility]) Name Value Range Interpretation Code Description Data Claribel rce(s) Supporting Document(s) bedside glucose 164 mg/dL 70-105 Above high normal Bedside Gluco se [facility] ([facility]) ID Date Data Source [id number] 03/31/2021 03:17:00 AM EDT [facility]) Name Value Range Interpretation Code Description Data Claribel rce(s) Supporting Document(s) bedside glucose 164 mg/dL 70-105 Above high normal Bedside Gluco se [facility] ([facility]) ID Date Data Source [id number] 03/31/2021 02:04:00 AM EDT [facility]) Name Value Range Interpretation Code Description Data Clarible rce(s) Supporting Document(s) bedside glucose 193 mg/dL 70-105 Above high normal Bedside Gluco se [facility] ([facility]) ID Date Data Source [id number] 03/31/2021 02:04:00 AM EDT [facility]) Name Value Range Interpretation Code Description Data Claribel rce(s) Supporting Document(s) bedside glucose 193 mg/dL 70-105 Above high normal Bedside Gluco se [facility]) ID Date Data Source [id number] 03/31/2021 02:04:00 AM EDT [facility] ([facility]) Name Value Range Interpretation Code Description Data Claribel rce(s) Supporting Document(s) bedside glucose 193 mg/dL 70-105 Above high normal Bedside Gluco se [facility] ([facility]) ID Date Data Source [id number] 03/31/2021 01:04:00 AM EDT [facility] ([facility]) Name Value Range Interpretation Code Description Data Claribel rce(s) Supporting Document(s) bedside glucose 103 mg/dL 70-105 Bedside Glucose ATHJuan Carlos MCKEON ([facility]) ID Date Data Source [id number] 03/31/2021 01:04:00 AM EDT [facility]) Name Value Range Interpretation Code Description Data Claribel rce(s) Supporting Document(s) bedside glucose 103 mg/dL 70-105 Bedside Glucose ATHE LINDA ([facility]) ID Date Data Source [id number] 03/31/2021 01:04:00 AM EDT [facility]) Name Value Range Interpretation Code Description Data Claribel rce(s) Supporting Document(s) bedside glucose 103 mg/dL 70-105 Bedside Glucose ATHE LINDA ([facility]) ID Date Data Source [id number] 03/31/2021 01:01:00 AM EDT [facility]) Name Value Range Interpretation Code Description Data Claribel rce(s) Supporting Document(s) glucose, fasting 173 mg/dL 70-100 Above high normal Glucose, Fas ting [facility] ([facility]) blood urea nitrogen 9 mg/dL 7-18 Blood Urea Nitro gen [facility] ([facility]) creatinine for GFR 1.02 mg/dL 0.55-1.30 Creatinine for GF R [facility] ([facility]) glomerular filtration rate > 60.0 >60 Glomerula r Filtration Rate [facility] ([facility]) sodium level 139 mEq/L 136-145 Sodium Level [facility] ([facility]) potassium serum 3.9 mEq/L 3.5-5.1 Potassium Serum ATHE NA ([facility]) chloride level 112 mEq/L 98-107 Above high normal Chloride Level [facility] ([facility]) carbon dioxide level 18 mEq/L 21-32 Below low normal Carbon Di oxide Level [facility] ([facility]) anion gap 9 mEq/L 8-16 Anion Gap [facility] ([facility]) calcium level 8.2 mg/dL 8.5-10.1 Below low normal Calcium Level AT [facility]) ID Date Data Source [id number] 03/31/2021 01:01:00 AM EDT [facility] ([facility]) Name Value Range Interpretation Code Description Data Claribel rce(s) Supporting Document(s) glucose, fasting 173 mg/dL 70-100 Above high normal Glucose, Fas ting [facility] ([facility]) blood urea nitrogen 9 mg/dL 7-18 Blood Urea Nitro gen [facility] ([facility]) creatinine for GFR 1.02 mg/dL 0.55-1.30 Creatinine for GF R [facility] ([facility]) glomerular filtration rate > 60.0 >60 Glomerula r Filtration Rate [facility] ([facility]) sodium level 139 mEq/L 136-145 Sodium Level [facility] ([facility]) potassium serum 3.9 mEq/L 3.5-5.1 Potassium Serum ATHE NA ([facility]) chloride level 112 mEq/L 98-107 Above high normal Chloride Level [facility] ([facility]) carbon dioxide level 18 mEq/L 21-32 Below low normal Carbon Di oxide Level [facility] ([facility]) anion gap 9 mEq/L 8-16 Anion Gap [facility] ([facility]) calcium level 8.2 mg/dL 8.5-10.1 Below low normal Calcium Level AT [facility]) ID Date Data Source [id number] 03/31/2021 01:01:00 AM EDT [facility]) Name Value Range Interpretation Code Description Data Claribel rce(s) Supporting Document(s) glucose, fasting 173 mg/dL 70-100 Above high normal Glucose, Fas ting [facility] ([facility]) blood urea nitrogen 9 mg/dL 7-18 Blood Urea Nitro gen [facility] ([facility]) creatinine for GFR 1.02 mg/dL 0.55-1.30 Creatinine for GF R [facility] ([facility]) glomerular filtration rate > 60.0 >60 Glomerula r Filtration Rate [facility] ([facility]) sodium level 139 mEq/L 136-145 Sodium Level [facility] ([facility]) potassium serum 3.9 mEq/L 3.5-5.1 Potassium Serum ATH NA ([facility]) chloride level 112 mEq/L 98-107 Above high normal Chloride Level [facility] ([facility]) carbon dioxide level 18 mEq/L 21-32 Below low normal Carbon Di oxide Level [facility] ([facility]) anion gap 9 mEq/L 8-16 Anion Gap [facility] ([facility]) calcium level 8.2 mg/dL 8.5-10.1 Below low normal Calcium Level AT [facility]) ID Date Data Source [id number] 03/31/2021 12:10:00 AM EDT [facility]) Name Value Range Interpretation Code Description Data Claribel rce(s) Supporting Document(s) bedside glucose 143 mg/dL 70-105 Above high normal Bedside Gluco se [facility] ([facility]) ID Date Data Source [id number] 03/31/2021 12:10:00 AM EDT [facility]) Name Value Range Interpretation Code Description Data Claribel rce(s) Supporting Document(s) bedside glucose 143 mg/dL 70-105 Above high normal Bedside Gluco se [facility]) ID Date Data Source [id number] 03/31/2021 12:10:00 AM EDT [facility]) Name Value Range Interpretation Code Description Data Claribel rce(s) Supporting Document(s) bedside glucose 143 mg/dL 70-105 Above high normal Bedside Gluco se [facility]) ID Date Data Source [id number] 03/30/2021 11:09:00 PM EDT [facility]) Name Value Range Interpretation Code Description Data Claribel rce(s) Supporting Document(s) bedside glucose 155 mg/dL 70-105 Above high normal Bedside Gluco se [facility]) ID Date Data Source [id number] 03/30/2021 11:09:00 PM EDT [facility]) Name Value Range Interpretation Code Description Data Claribel rce(s) Supporting Document(s) bedside glucose 155 mg/dL 70-105 Above high normal Bedside Gluco se [facility]) ID Date Data Source [id number] 03/30/2021 11:09:00 PM EDT [facility]) Name Value Range Interpretation Code Description Data Claribel rce(s) Supporting Document(s) bedside glucose 155 mg/dL 70-105 Above high normal Bedside Gluco se [facility]) ID Date Data Source [id number] 03/30/2021 10:03:00 PM EDT [facility]) Name Value Range Interpretation Code Description Data Claribel rce(s) Supporting Document(s) bedside glucose 160 mg/dL 70-105 Above high normal Bedside Gluco se [facility]) ID Date Data Source [id number] 03/30/2021 10:03:00 PM EDT [facility]) Name Value Range Interpretation Code Description Data Claribel rce(s) Supporting Document(s) bedside glucose 160 mg/dL 70-105 Above high normal Bedside Gluco se [facility] ([facility]) ID Date Data Source [id number] 03/30/2021 10:03:00 PM EDT [facility] ([facility]) Name Value Range Interpretation Code Description Data Claribel rce(s) Supporting Document(s) bedside glucose 160 mg/dL 70-105 Above high normal Bedside Gluco se [facility] ([facility]) ID Date Data Source [id number] 03/30/2021 09:10:00 PM EDT [facility] ([facility]) Name Value Range Interpretation Code Description Data Claribel rce(s) Supporting Document(s) magnesium level 1.8 mg/dL 1.8-2.4 Magnesium Level [facility]) ID Date Data Source [id number] 03/30/2021 09:10:00 PM EDT [facility]) Name Value Range Interpretation Code Description Data Claribel rce(s) Supporting Document(s) glucose, fasting 178 mg/dL 70-100 Above high normal Glucose, Fas ting [facility] ([facility]) blood urea nitrogen 11 mg/dL 7-18 Blood Urea Nitro gen [facility] ([facility]) creatinine for GFR 1.10 mg/dL 0.55-1.30 Creatinine for GF R [facility] ([facility]) glomerular filtration rate > 60.0 >60 Glomerula r Filtration Rate [facility] ([facility]) sodium level 139 mEq/L 136-145 Sodium Level [facility] ([facility]) potassium serum 3.8 mEq/L 3.5-5.1 Potassium Serum [facility] ([facility]) chloride level 115 mEq/L 98-107 Above high normal Chloride Level [facility] ([facility]) carbon dioxide level 15 mEq/L 21-32 Below low normal Carbon Di oxide Level [facility] ([facility]) anion gap 9 mEq/L 8-16 Anion Gap [facility] ([facility]) calcium level 8.4 mg/dL 8.5-10.1 Below low normal Calcium Level AT [facility] ([facility]) ID Date Data Source [id number] 03/30/2021 09:10:00 PM EDT [facility] ([facility]) Name Value Range Interpretation Code Description Data Claribel rce(s) Supporting Document(s) magnesium level 1.8 mg/dL 1.8-2.4 Magnesium Level [facility] ([facility]) ID Date Data Source [id number] 03/30/2021 09:10:00 PM EDT [facility]) Name Value Range Interpretation Code Description Data Claribel rce(s) Supporting Document(s) glucose, fasting 178 mg/dL 70-100 Above high normal Glucose, Fas ting [facility] ([facility]) blood urea nitrogen 11 mg/dL 7-18 Blood Urea Nitro gen [facility] ([facility]) glomerular filtration rate > 60.0 >60 Glomerula r Filtration Rate [facility] ([facility]) creatinine for GFR 1.10 mg/dL 0.55-1.30 Creatinine for GF R [facility] ([facility]) sodium level 139 mEq/L 136-145 Sodium Level [facility] ([facility]) potassium serum 3.8 mEq/L 3.5-5.1 Potassium Serum [facility] ([facility]) chloride level 115 mEq/L 98-107 Above high normal Chloride Level [facility] ([facility]) carbon dioxide level 15 mEq/L 21-32 Below low normal Carbon Di oxide Level [facility] ([facility]) anion gap 9 mEq/L 8-16 Anion Gap [facility] ([facility]) calcium level 8.4 mg/dL 8.5-10.1 Below low normal Calcium Level AT [facility] ([facility]) ID Date Data Source [id number] 03/30/2021 09:10:00 PM EDT [facility]) Name Value Range Interpretation Code Description Data Claribel rce(s) Supporting Document(s) magnesium level 1.8 mg/dL 1.8-2.4 Magnesium Level [facility] ([facility]) ID Date Data Source [id number] 03/30/2021 09:10:00 PM EDT [facility] ([facility]) Name Value Range Interpretation Code Description Data Claribel rce(s) Supporting Document(s) glucose, fasting 178 mg/dL 70-100 Above high normal Glucose, Fas ting [facility] ([facility]) blood urea nitrogen 11 mg/dL 7-18 Blood Urea Nitro gen [facility] ([facility]) creatinine for GFR 1.10 mg/dL 0.55-1.30 Creatinine for GF R [facility] ([facility]) glomerular filtration rate > 60.0 >60 Glomerula r Filtration Rate [facility] ([facility]) sodium level 139 mEq/L 136-145 Sodium Level [facility] ([facility]) potassium serum 3.8 mEq/L 3.5-5.1 Potassium Serum [facility] ([facility]) chloride level 115 mEq/L 98-107 Above high normal Chloride Level [facility] ([facility]) carbon dioxide level 15 mEq/L 21-32 Below low normal Carbon Di oxide Level [facility] ([facility]) anion gap 9 mEq/L 8-16 Anion Gap [facility] ([facility]) calcium level 8.4 mg/dL 8.5-10.1 Below low normal Calcium Level AT [facility] ([facility]) ID Date Data Source [id number] 03/30/2021 09:09:00 PM EDT [facility] ([facility]) Name Value Range Interpretation Code Description Data Claribel rce(s) Supporting Document(s) bedside glucose 180 mg/dL 70-105 Above high normal Bedside Gluco se [facility] ([facility]) ID Date Data Source [id number] 03/30/2021 09:09:00 PM EDT [facility]) Name Value Range Interpretation Code Description Data Claribel rce(s) Supporting Document(s) bedside glucose 180 mg/dL 70-105 Above high normal Bedside Gluco se [facility]) ID Date Data Source [id number] 03/30/2021 09:09:00 PM EDT [facility]) Name Value Range Interpretation Code Description Data Claribel rce(s) Supporting Document(s) bedside glucose 180 mg/dL 70-105 Above high normal Bedside Gluco se [facility]) ID Date Data Source [id number] 03/30/2021 08:09:00 PM EDT [facility]) Name Value Range Interpretation Code Description Data Claribel rce(s) Supporting Document(s) bedside glucose 171 mg/dL 70-105 Above high normal Bedside Gluco se [facility]) ID Date Data Source [id number] 03/30/2021 08:09:00 PM EDT [facility]) Name Value Range Interpretation Code Description Data Claribel rce(s) Supporting Document(s) bedside glucose 171 mg/dL 70-105 Above high normal Bedside Gluco se [facility]) ID Date Data Source [id number] 03/30/2021 08:09:00 PM EDT [facility]) Name Value Range Interpretation Code Description Data Claribel rce(s) Supporting Document(s) bedside glucose 171 mg/dL 70-105 Above high normal Bedside Gluco se [facility]) ID Date Data Source [id number] 03/30/2021 07:11:00 PM EDT [facility]) Name Value Range Interpretation Code Description Data Claribel rce(s) Supporting Document(s) bedside glucose 185 mg/dL 70-105 Above high normal Bedside Gluco se [facility]) ID Date Data Source [id number] 03/30/2021 07:11:00 PM EDT [facility]) Name Value Range Interpretation Code Description Data Claribel rce(s) Supporting Document(s) bedside glucose 185 mg/dL 70-105 Above high normal Bedside Gluco se [facility] ([facility]) ID Date Data Source [id number] 03/30/2021 07:11:00 PM EDT [facility]) Name Value Range Interpretation Code Description Data Claribel rce(s) Supporting Document(s) bedside glucose 185 mg/dL 70-105 Above high normal Bedside Gluco se [facility] ([facility]) ID Date Data Source [id number] 03/30/2021 06:15:00 PM EDT [facility]) Name Value Range Interpretation Code Description Data Claribel rce(s) Supporting Document(s) bedside glucose 198 mg/dL 70-105 Above high normal Bedside Gluco se [facility] ([facility]) ID Date Data Source [id number] 03/30/2021 06:15:00 PM EDT [facility]) Name Value Range Interpretation Code Description Data Claribel rce(s) Supporting Document(s) bedside glucose 198 mg/dL 70-105 Above high normal Bedside Gluco se [facility] ([facility]) ID Date Data Source [id number] 03/30/2021 06:15:00 PM EDT [facility]) Name Value Range Interpretation Code Description Data Claribel rce(s) Supporting Document(s) bedside glucose 198 mg/dL 70-105 Above high normal Bedside Gluco se [facility] ([facility]) ID Date Data Source [id number] 03/30/2021 05:34:00 PM EDT [facility] ([facility]) Name Value Range Interpretation Code Description Data Claribel rce(s) Supporting Document(s) bedside glucose 192 mg/dL 70-105 Above high normal Bedside Gluco se [facility] ([facility]) ID Date Data Source [id number] 03/30/2021 05:34:00 PM EDT [facility] ([facility]) Name Value Range Interpretation Code Description Data Claribel rce(s) Supporting Document(s) bedside glucose 192 mg/dL 70-105 Above high normal Bedside Gluco se [facility] ([facility]) ID Date Data Source [id number] 03/30/2021 05:34:00 PM EDT [facility]) Name Value Range Interpretation Code Description Data Claribel rce(s) Supporting Document(s) bedside glucose 192 mg/dL 70-105 Above high normal Bedside Gluco se [facility] ([facility]) ID Date Data Source [id number] 03/30/2021 05:32:00 PM EDT [facility] ([facility]) Name Value Range Interpretation Code Description Data Claribel rce(s) Supporting Document(s) magnesium level 1.9 mg/dL 1.8-2.4 Magnesium Level [facility] ([facility]) ID Date Data Source [id number] 03/30/2021 05:32:00 PM EDT [facility] ([facility]) Name Value Range Interpretation Code Description Data Claribel rce(s) Supporting Document(s) glucose, fasting 195 mg/dL 70-100 Above high normal Glucose, Fas ting [facility] ([facility]) blood urea nitrogen 12 mg/dL 7-18 Blood Urea Nitro gen [facility] ([facility]) creatinine for GFR 1.09 mg/dL 0.55-1.30 Creatinine for GF R [facility] ([facility]) glomerular filtration rate > 60.0 >60 Glomerula r Filtration Rate [facility] ([facility]) sodium level 141 mEq/L 136-145 Sodium Level [facility] ([facility]) potassium serum 3.9 mEq/L 3.5-5.1 Potassium Serum [facility] ([facility]) chloride level 115 mEq/L 98-107 Above high normal Chloride Level [facility] ([facility]) carbon dioxide level 16 mEq/L 21-32 Below low normal Carbon Di oxide Level [facility] ([facility]) anion gap 10 mEq/L 8-16 Anion Gap [facility] ([facility]) calcium level 8.2 mg/dL 8.5-10.1 Below low normal Calcium Level AT [facility]) ID Date Data Source [id number] 03/30/2021 05:32:00 PM EDT [facility]) Name Value Range Interpretation Code Description Data Claribel rce(s) Supporting Document(s) magnesium level 1.9 mg/dL 1.8-2.4 Magnesium Level [facility]) ID Date Data Source [id number] 03/30/2021 05:32:00 PM EDT [facility]) Name Value Range Interpretation Code Description Data Claribel rce(s) Supporting Document(s) glucose, fasting 195 mg/dL 70-100 Above high normal Glucose, Fas ting [facility] ([facility]) blood urea nitrogen 12 mg/dL 7-18 Blood Urea Nitro gen [facility] ([facility]) glomerular filtration rate > 60.0 >60 Glomerula r Filtration Rate [facility] ([facility]) creatinine for GFR 1.09 mg/dL 0.55-1.30 Creatinine for GF R [facility] ([facility]) sodium level 141 mEq/L 136-145 Sodium Level [facility] ([facility]) potassium serum 3.9 mEq/L 3.5-5.1 Potassium Serum [facility] ([facility]) chloride level 115 mEq/L 98-107 Above high normal Chloride Level [facility] ([facility]) carbon dioxide level 16 mEq/L 21-32 Below low normal Carbon Di oxide Level [facility] ([facility]) anion gap 10 mEq/L 8-16 Anion Gap [facility] ([facility]) calcium level 8.2 mg/dL 8.5-10.1 Below low normal Calcium Level AT [facility] ([facility]) ID Date Data Source [id number] 03/30/2021 05:32:00 PM EDT [facility] ([facility]) Name Value Range Interpretation Code Description Data Claribel rce(s) Supporting Document(s) magnesium level 1.9 mg/dL 1.8-2.4 Magnesium Level [facility] ([facility]) ID Date Data Source [id number] 03/30/2021 05:32:00 PM EDT [facility] ([facility]) Name Value Range Interpretation Code Description Data Claribel rce(s) Supporting Document(s) glucose, fasting 195 mg/dL 70-100 Above high normal Glucose, Fas ting [facility] ([facility]) blood urea nitrogen 12 mg/dL 7-18 Blood Urea Nitro gen [facility] ([facility]) creatinine for GFR 1.09 mg/dL 0.55-1.30 Creatinine for GF R [facility] ([facility]) glomerular filtration rate > 60.0 >60 Glomerula r Filtration Rate [facility] ([facility]) sodium level 141 mEq/L 136-145 Sodium Level [facility] ([facility]) potassium serum 3.9 mEq/L 3.5-5.1 Potassium Serum [facility] ([facility]) chloride level 115 mEq/L 98-107 Above high normal Chloride Level [facility] ([facility]) carbon dioxide level 16 mEq/L 21-32 Below low normal Carbon Di oxide Level [facility] ([facility]) anion gap 10 mEq/L 8-16 Anion Gap [facility] ([facility]) calcium level 8.2 mg/dL 8.5-10.1 Below low normal Calcium Level AT [facility] ([facility]) ID Date Data Source [id number] 03/30/2021 04:31:00 PM EDT [facility]) Name Value Range Interpretation Code Description Data Claribel rce(s) Supporting Document(s) bedside glucose 182 mg/dL 70-105 Above high normal Bedside Gluco se [facility]) ID Date Data Source [id number] 03/30/2021 04:31:00 PM EDT [facility]) Name Value Range Interpretation Code Description Data Claribel rce(s) Supporting Document(s) bedside glucose 182 mg/dL 70-105 Above high normal Bedside Gluco se [facility]) ID Date Data Source [id number] 03/30/2021 04:31:00 PM EDT [facility]) Name Value Range Interpretation Code Description Data Claribel rce(s) Supporting Document(s) bedside glucose 182 mg/dL 70-105 Above high normal Bedside Gluco se [facility]) ID Date Data Source [id number] 03/30/2021 03:07:00 PM EDT [facility]) Name Value Range Interpretation Code Description Data Claribel rce(s) Supporting Document(s) bedside glucose 207 mg/dL 70-105 Above high normal Bedside Gluco se [facility]) ID Date Data Source [id number] 03/30/2021 03:07:00 PM EDT [facility]) Name Value Range Interpretation Code Description Data Claribel rce(s) Supporting Document(s) bedside glucose 207 mg/dL 70-105 Above high normal Bedside Gluco se [facility]) ID Date Data Source [id number] 03/30/2021 03:07:00 PM EDT [facility]) Name Value Range Interpretation Code Description Data Claribel rce(s) Supporting Document(s) bedside glucose 207 mg/dL 70-105 Above high normal Bedside Gluco se [facility] ([facility]) ID Date Data Source [id number] 03/30/2021 02:06:00 PM EDT [facility]) Name Value Range Interpretation Code Description Data Claribel rce(s) Supporting Document(s) bedside glucose 128 mg/dL 70-105 Above high normal Bedside Gluco se [facility] ([facility]) ID Date Data Source [id number] 03/30/2021 02:06:00 PM EDT [facility]) Name Value Range Interpretation Code Description Data Claribel rce(s) Supporting Document(s) bedside glucose 128 mg/dL 70-105 Above high normal Bedside Gluco se [facility]) ID Date Data Source [id number] 03/30/2021 02:06:00 PM EDT [facility]) Name Value Range Interpretation Code Description Data Claribel rce(s) Supporting Document(s) bedside glucose 128 mg/dL 70-105 Above high normal Bedside Gluco se [facility]) ID Date Data Source [id number] 03/30/2021 01:05:00 PM EDT [facility]) Name Value Range Interpretation Code Description Data Claribel rce(s) Supporting Document(s) bedside glucose 138 mg/dL 70-105 Above high normal Bedside Gluco se [facility]) ID Date Data Source [id number] 03/30/2021 01:05:00 PM EDT [facility]) Name Value Range Interpretation Code Description Data Claribel rce(s) Supporting Document(s) bedside glucose 138 mg/dL 70-105 Above high normal Bedside Gluco se [facility]) ID Date Data Source [id number] 03/30/2021 01:05:00 PM EDT [facility] ([facility]) Name Value Range Interpretation Code Description Data Claribel rce(s) Supporting Document(s) bedside glucose 138 mg/dL 70-105 Above high normal Bedside Gluco se [facility] ([facility]) ID Date Data Source [id number] 03/30/2021 12:13:00 PM EDT [facility] ([facility]) Name Value Range Interpretation Code Description Data Claribel rce(s) Supporting Document(s) osmolality serum 308 mOsm/kg 275-295 Above high normal Osmolality Serum [facility] ([facility]) ID Date Data Source [id number] 03/30/2021 12:13:00 PM EDT [facility] ([facility]) Name Value Range Interpretation Code Description Data Claribel rce(s) Supporting Document(s) phosphorus level 1.7 mg/dL 2.5-4.9 Below low normal Phosphorus Le karma [facility] ([facility]) ID Date Data Source [id number] 03/30/2021 12:13:00 PM EDT [facility] ([facility]) Name Value Range Interpretation Code Description Data Claribel rce(s) Supporting Document(s) glucose, fasting 118 mg/dL 70-100 Above high normal Glucose, Fas ting [facility] ([facility]) blood urea nitrogen 16 mg/dL 7-18 Blood Urea Nitro gen [facility] ([facility]) creatinine for GFR 1.18 mg/dL 0.55-1.30 Creatinine for GF R [facility] ([facility]) glomerular filtration rate >60 Below low normal Mariza merular Filtration Rate [facility] ([facility]) sodium level 144 mEq/L 136-145 Sodium Level [facility] ([facility]) potassium serum 4.4 mEq/L 3.5-5.1 Potassium Serum [facility] ([facility]) chloride level 117 mEq/L 98-107 Above high normal Chloride Level [facility] ([facility]) carbon dioxide level 12 mEq/L 21-32 Below low normal Carbon Di oxide Level [facility] ([facility]) anion gap 15 mEq/L 8-16 Anion Gap [facility] ([facility]) calcium level 9.1 mg/dL 8.5-10.1 Calcium Level [facility] ( [facility]) ID Date Data Source [id number] 03/30/2021 12:13:00 PM EDT [facility] ([facility]) Name Value Range Interpretation Code Description Data Claribel rce(s) Supporting Document(s) venous pH 7.171 units 7.330-7.430 Below low normal Venous pH [facility] ([facility]) venous partial pressure CO2 26.1 mmHg 38.0-50.0 Below low nor mal Venous Partial Pressure CO2 [facility] ([facility]) venous partial pressure O2 64.5 mmHg 30.0-50.0 Above high nor mal Venous Partial Pressure O2 [facility] ([facility]) venous total CO2 10.1 mEq/L 24.0-28.0 Below low normal Venous Total CO2 [facility] ([facility]) venous HCO3 9.3 mEq/L 23.0-27.0 Below low normal Venous HCO3 [facility] ([facility]) venous base excess -2.0-2.0 Below low normal Venous Base Excess [facility] ([facility]) venous standard HCO3 11.3 mEq/L Venous Standard HCO3 [facility] ([facility]) venous O2 saturation 90.9 % 60.0-80.0 Above high normal Venous O 2 Saturation [facility] ([facility]) ID Date Data Source [id number] 03/30/2021 12:13:00 PM EDT [facility] ([facility]) Name Value Range Interpretation Code Description Data Claribel rce(s) Supporting Document(s) osmolality serum 308 mOsm/kg 275-295 Above high normal Osmolality Serum [facility] ([facility]) ID Date Data Source [id number] 03/30/2021 12:13:00 PM EDT [facility] ([facility]) Name Value Range Interpretation Code Description Data Claribel rce(s) Supporting Document(s) phosphorus level 1.7 mg/dL 2.5-4.9 Below low normal Phosphorus Le karma [facility] ([facility]) ID Date Data Source [id number] 03/30/2021 12:13:00 PM EDT [facility] ([facility]) Name Value Range Interpretation Code Description Data Claribel rce(s) Supporting Document(s) glucose, fasting 118 mg/dL 70-100 Above high normal Glucose, Fas ting [facility] ([facility]) blood urea nitrogen 16 mg/dL 7-18 Blood Urea Nitro gen [facility] ([facility]) creatinine for GFR 1.18 mg/dL 0.55-1.30 Creatinine for GF R [facility] ([facility]) glomerular filtration rate >60 Below low normal Mariza merular Filtration Rate [facility] ([facility]) sodium level 144 mEq/L 136-145 Sodium Level [facility] ([facility]) potassium serum 4.4 mEq/L 3.5-5.1 Potassium Serum ATH NA ([facility]) chloride level 117 mEq/L 98-107 Above high normal Chloride Level [facility] ([facility]) carbon dioxide level 12 mEq/L 21-32 Below low normal Carbon Di oxide Level [facility] ([facility]) anion gap 15 mEq/L 8-16 Anion Gap [facility] ([facility]) calcium level 9.1 mg/dL 8.5-10.1 Calcium Level [facility] ( [facility]) ID Date Data Source [id number] 03/30/2021 12:13:00 PM EDT [facility]) Name Value Range Interpretation Code Description Data Claribel rce(s) Supporting Document(s) venous pH 7.171 units 7.330-7.430 Below low normal Venous pH [facility] ([facility]) venous partial pressure CO2 26.1 mmHg 38.0-50.0 Below low nor mal Venous Partial Pressure CO2 [facility] ([facility]) venous partial pressure O2 64.5 mmHg 30.0-50.0 Above high nor mal Venous Partial Pressure O2 [facility] ([facility]) venous total CO2 10.1 mEq/L 24.0-28.0 Below low normal Venous Total CO2 [facility] ([facility]) venous HCO3 9.3 mEq/L 23.0-27.0 Below low normal Venous HCO3 [facility] ([facility]) venous base excess -2.0-2.0 Below low normal Venous Base Excess [facility] ([facility]) venous standard HCO3 11.3 mEq/L Venous Standard HCO3 [facility] ([facility]) venous O2 saturation 90.9 % 60.0-80.0 Above high normal Venous O 2 Saturation [facility] ([facility]) ID Date Data Source [id number] 03/30/2021 12:13:00 PM EDT [facility] ([facility]) Name Value Range Interpretation Code Description Data Claribel rce(s) Supporting Document(s) osmolality serum 308 mOsm/kg 275-295 Above high normal Osmolality Serum [facility] ([facility]) ID Date Data Source [id number] 03/30/2021 12:13:00 PM EDT [facility] ([facility]) Name Value Range Interpretation Code Description Data Claribel rce(s) Supporting Document(s) phosphorus level 1.7 mg/dL 2.5-4.9 Below low normal Phosphorus Le karma [facility] ([facility]) ID Date Data Source [id number] 03/30/2021 12:13:00 PM EDT [facility]) Name Value Range Interpretation Code Description Data Claribel rce(s) Supporting Document(s) glucose, fasting 118 mg/dL 70-100 Above high normal Glucose, Fas ting [facility] ([facility]) blood urea nitrogen 16 mg/dL 7-18 Blood Urea Nitro gen [facility] ([facility]) creatinine for GFR 1.18 mg/dL 0.55-1.30 Creatinine for GF R [facility] ([facility]) glomerular filtration rate >60 Below low normal Mariza merular Filtration Rate [facility] ([facility]) sodium level 144 mEq/L 136-145 Sodium Level [facility] ([facility]) potassium serum 4.4 mEq/L 3.5-5.1 Potassium Serum ATHE NA ([facility]) chloride level 117 mEq/L 98-107 Above high normal Chloride Level [facility] ([facility]) carbon dioxide level 12 mEq/L 21-32 Below low normal Carbon Di oxide Level [facility] ([facility]) anion gap 15 mEq/L 8-16 Anion Gap [facility] ([facility]) calcium level 9.1 mg/dL 8.5-10.1 Calcium Level [facility] ( [facility]) ID Date Data Source [id number] 03/30/2021 12:13:00 PM EDT [facility] ([facility]) Name Value Range Interpretation Code Description Data Claribel rce(s) Supporting Document(s) venous pH 7.171 units 7.330-7.430 Below low normal Venous pH [facility] ([facility]) venous partial pressure CO2 26.1 mmHg 38.0-50.0 Below low nor mal Venous Partial Pressure CO2 [facility] ([facility]) venous partial pressure O2 64.5 mmHg 30.0-50.0 Above high nor mal Venous Partial Pressure O2 [facility] ([facility]) venous total CO2 10.1 mEq/L 24.0-28.0 Below low normal Venous Total CO2 [facility] ([facility]) venous HCO3 9.3 mEq/L 23.0-27.0 Below low normal Venous HCO3 [facility] ([facility]) venous base excess -2.0-2.0 Below low normal Venous Base Excess [facility] ([facility]) venous standard HCO3 11.3 mEq/L Venous Standard HCO3 [facility]) venous O2 saturation 90.9 % 60.0-80.0 Above high normal Venous O 2 Saturation [facility]) ID Date Data Source [id number] 03/30/2021 12:12:00 PM EDT [facility]) Name Value Range Interpretation Code Description Data Claribel rce(s) Supporting Document(s) bedside glucose 123 mg/dL 70-105 Above high normal Bedside Gluco se [facility]) ID Date Data Source [id number] 03/30/2021 12:12:00 PM EDT [facility]) Name Value Range Interpretation Code Description Data Claribel rce(s) Supporting Document(s) bedside glucose 123 mg/dL 70-105 Above high normal Bedside Gluco se [facility]) ID Date Data Source [id number] 03/30/2021 12:12:00 PM EDT [facility]) Name Value Range Interpretation Code Description Data Claribel rce(s) Supporting Document(s) bedside glucose 123 mg/dL 70-105 Above high normal Bedside Gluco se [facility]) ID Date Data Source [id number] 03/30/2021 11:00:00 AM EDT [facility]) Name Value Range Interpretation Code Description Data Claribel rce(s) Supporting Document(s) bedside glucose 113 mg/dL 70-105 Above high normal Bedside Gluco se [facility]) ID Date Data Source [id number] 03/30/2021 11:00:00 AM EDT [facility]) Name Value Range Interpretation Code Description Data Claribel rce(s) Supporting Document(s) bedside glucose 113 mg/dL 70-105 Above high normal Bedside Gluco se [facility]) ID Date Data Source [id number] 03/30/2021 11:00:00 AM EDT [facility]) Name Value Range Interpretation Code Description Data Claribel rce(s) Supporting Document(s) bedside glucose 113 mg/dL 70-105 Above high normal Bedside Gluco se [facility] ([facility]) ID Date Data Source [id number] 03/30/2021 09:57:00 AM EDT [facility]) Name Value Range Interpretation Code Description Data Claribel rce(s) Supporting Document(s) bedside glucose 161 mg/dL 70-105 Above high normal Bedside Gluco se [facility] ([facility]) ID Date Data Source [id number] 03/30/2021 09:57:00 AM EDT [facility]) Name Value Range Interpretation Code Description Data Claribel rce(s) Supporting Document(s) bedside glucose 161 mg/dL 70-105 Above high normal Bedside Gluco se [facility]) ID Date Data Source [id number] 03/30/2021 09:57:00 AM EDT [facility]) Name Value Range Interpretation Code Description Data Claribel rce(s) Supporting Document(s) bedside glucose 161 mg/dL 70-105 Above high normal Bedside Gluco se [facility]) ID Date Data Source [id number] 03/30/2021 08:57:00 AM EDT [facility]) Name Value Range Interpretation Code Description Data Claribel rce(s) Supporting Document(s) bedside glucose 206 mg/dL 70-105 Above high normal Bedside Gluco se [facility]) ID Date Data Source [id number] 03/30/2021 08:57:00 AM EDT [facility]) Name Value Range Interpretation Code Description Data Claribel rce(s) Supporting Document(s) bedside glucose 206 mg/dL 70-105 Above high normal Bedside Gluco se [facility]) ID Date Data Source [id number] 03/30/2021 08:57:00 AM EDT [facility] ([facility]) Name Value Range Interpretation Code Description Data Claribel rce(s) Supporting Document(s) bedside glucose 206 mg/dL 70-105 Above high normal Bedside Gluco se [facility] ([facility]) ID Date Data Source [id number] 03/30/2021 08:36:00 AM EDT [facility]) Name Value Range Interpretation Code Description Data Claribel rce(s) Supporting Document(s) osmolality serum 317 mOsm/kg 275-295 Above high normal Osmolality Serum [facility] ([facility]) ID Date Data Source [id number] 03/30/2021 08:36:00 AM EDT [facility]) Name Value Range Interpretation Code Description Data Claribel rce(s) Supporting Document(s) magnesium level 2.0 mg/dL 1.8-2.4 Magnesium Level AT[facility] NA ([facility]) ID Date Data Source [id number] 03/30/2021 08:36:00 AM EDT [facility] ([facility]) Name Value Range Interpretation Code Description Data Claribel rce(s) Supporting Document(s) phosphorus level 1.4 mg/dL 2.5-4.9 Below low normal Phosphorus Le karma [facility] ([facility]) ID Date Data Source [id number] 03/30/2021 08:36:00 AM EDT [facility]) Name Value Range Interpretation Code Description Data Claribel rce(s) Supporting Document(s) glucose, fasting 237 mg/dL 70-100 Above high normal Glucose, Fas ting [facility] ([facility]) blood urea nitrogen 17 mg/dL 7-18 Blood Urea Nitro gen [facility] ([facility]) creatinine for GFR 1.43 mg/dL 0.55-1.30 Above high normal Creatinine for GFR [facility] ([facility]) glomerular filtration rate >60 Below low normal Mariza merular Filtration Rate [facility] ([facility]) sodium level 143 mEq/L 136-145 Sodium Level [facility] ([facility]) potassium serum 4.0 mEq/L 3.5-5.1 Potassium Serum [facility] NA ([facility]) chloride level 115 mEq/L 98-107 Above high normal Chloride Level [facility] ([facility]) carbon dioxide level 11 mEq/L 21-32 Below low normal Carbon Di oxide Level [facility] ([facility]) anion gap 17 mEq/L 8-16 Above high normal Anion Gap [facility] ([facility]) calcium level 9.2 mg/dL 8.5-10.1 Calcium Level [facility] ( [facility]) ID Date Data Source [id number] 03/30/2021 08:36:00 AM EDT [facility] ([facility]) Name Value Range Interpretation Code Description Data Claribel rce(s) Supporting Document(s) osmolality serum 317 mOsm/kg 275-295 Above high normal Osmolality Serum [facility] ([facility]) ID Date Data Source [id number] 03/30/2021 08:36:00 AM EDT [facility]) Name Value Range Interpretation Code Description Data Claribel rce(s) Supporting Document(s) magnesium level 2.0 mg/dL 1.8-2.4 Magnesium Level [facility] ([facility]) ID Date Data Source [id number] 03/30/2021 08:36:00 AM EDT [facility]) Name Value Range Interpretation Code Description Data Claribel rce(s) Supporting Document(s) phosphorus level 1.4 mg/dL 2.5-4.9 Below low normal Phosphorus Le karma [facility] ([facility]) ID Date Data Source [id number] 03/30/2021 08:36:00 AM EDT [facility] ([facility]) Name Value Range Interpretation Code Description Data Claribel rce(s) Supporting Document(s) glucose, fasting 237 mg/dL 70-100 Above high normal Glucose, Fas ting [facility] ([facility]) blood urea nitrogen 17 mg/dL 7-18 Blood Urea Nitro gen [facility] ([facility]) creatinine for GFR 1.43 mg/dL 0.55-1.30 Above high normal Creatinine for GFR [facility] ([facility]) glomerular filtration rate >60 Below low normal Mariza merular Filtration Rate [facility] ([facility]) sodium level 143 mEq/L 136-145 Sodium Level [facility] ([facility]) potassium serum 4.0 mEq/L 3.5-5.1 Potassium Serum [facility] NA ([facility]) chloride level 115 mEq/L 98-107 Above high normal Chloride Level [facility] ([facility]) carbon dioxide level 11 mEq/L 21-32 Below low normal Carbon Di oxide Level [facility] ([facility]) anion gap 17 mEq/L 8-16 Above high normal Anion Gap [facility] ([facility]) calcium level 9.2 mg/dL 8.5-10.1 Calcium Level [facility] ( [facility]) ID Date Data Source [id number] 03/30/2021 08:36:00 AM EDT [facility]) Name Value Range Interpretation Code Description Data Claribel rce(s) Supporting Document(s) osmolality serum 317 mOsm/kg 275-295 Above high normal Osmolality Serum [facility] ([facility]) ID Date Data Source [id number] 03/30/2021 08:36:00 AM EDT [facility]) Name Value Range Interpretation Code Description Data Claribel rce(s) Supporting Document(s) magnesium level 2.0 mg/dL 1.8-2.4 [facility] ID Date Data Source [id number] 03/30/2021 08:36:00 AM EDT [facility] ([facility]) Name Value Range Interpretation Code Description Data Claribel rce(s) Supporting Document(s) phosphorus level 1.4 mg/dL 2.5-4.9 Below low normal Phosphorus Le karma [facility] ([facility]) ID Date Data Source [id number] 03/30/2021 08:36:00 AM EDT [facility] ([facility]) Name Value Range Interpretation Code Description Data Claribel rce(s) Supporting Document(s) glucose, fasting 237 mg/dL 70-100 Above high normal Glucose, Fas ting [facility] ([facility]) blood urea nitrogen 17 mg/dL 7-18 Blood Urea Nitro gen [facility] ([facility]) creatinine for GFR 1.43 mg/dL 0.55-1.30 Above high normal Creatinine for GFR [facility] ([facility]) glomerular filtration rate >60 Below low normal Mariza merular Filtration Rate [facility] ([facility]) sodium level 143 mEq/L 136-145 Sodium Level [facility] ([facility]) potassium serum 4.0 mEq/L 3.5-5.1 Potassium Serum ATH NA ([facility]) chloride level 115 mEq/L 98-107 Above high normal Chloride Level [facility] ([facility]) carbon dioxide level 11 mEq/L 21-32 Below low normal Carbon Di oxide Level [facility] ([facility]) anion gap 17 mEq/L 8-16 Above high normal Anion Gap [facility] ([facility]) calcium level 9.2 mg/dL 8.5-10.1 Calcium Level [facility] ( [facility]) ID Date Data Source [id number] 03/30/2021 07:48:00 AM EDT [facility]) Name Value Range Interpretation Code Description Data Claribel rce(s) Supporting Document(s) bedside glucose 327 mg/dL 70-105 Above high normal Bedside Gluco se [facility] ([facility]) ID Date Data Source [id number] 03/30/2021 07:48:00 AM EDT [facility]) Name Value Range Interpretation Code Description Data Claribel rce(s) Supporting Document(s) bedside glucose 327 mg/dL 70-105 Above high normal Bedside Gluco se [facility]) ID Date Data Source [id number] 03/30/2021 07:48:00 AM EDT [facility]) Name Value Range Interpretation Code Description Data Claribel rce(s) Supporting Document(s) bedside glucose 327 mg/dL 70-105 Above high normal Bedside Gluco se [facility]) ID Date Data Source [id number] 03/30/2021 06:39:00 AM EDT [facility]) Name Value Range Interpretation Code Description Data Claribel rce(s) Supporting Document(s) bedside glucose 373 mg/dL 70-105 Above high normal Bedside Gluco se [facility]) ID Date Data Source [id number] 03/30/2021 06:39:00 AM EDT [facility]) Name Value Range Interpretation Code Description Data Claribel rce(s) Supporting Document(s) bedside glucose 373 mg/dL 70-105 Above high normal Bedside Gluco se [facility]) ID Date Data Source [id number] 03/30/2021 06:39:00 AM EDT [facility]) Name Value Range Interpretation Code Description Data Claribel rce(s) Supporting Document(s) bedside glucose 373 mg/dL 70-105 Above high normal Bedside Gluco se [facility]) ID Date Data Source [id number] 03/30/2021 05:00:00 AM EDT [facility]) Name Value Range Interpretation Code Description Data Claribel rce(s) Supporting Document(s) bedside glucose 344 mg/dL 70-105 Above high normal Bedside Gluco se [facility]) ID Date Data Source [id number] 03/30/2021 05:00:00 AM EDT [facility]) Name Value Range Interpretation Code Description Data Claribel rce(s) Supporting Document(s) bedside glucose 344 mg/dL 70-105 Above high normal Bedside Gluco se [facility]) ID Date Data Source [id number] 03/30/2021 05:00:00 AM EDT [facility]) Name Value Range Interpretation Code Description Data Claribel rce(s) Supporting Document(s) bedside glucose 344 mg/dL 70-105 Above high normal Bedside Gluco se [facility]) ID Date Data Source [id number] 03/30/2021 03:53:00 AM EDT [facility]) Name Value Range Interpretation Code Description Data Claribel rce(s) Supporting Document(s) osmolality serum 322 mOsm/kg 275-295 Above high normal Osmolality Serum [facility]) ID Date Data Source [id number] 03/30/2021 03:53:00 AM EDT [facility]) Name Value Range Interpretation Code Description Data Claribel rce(s) Supporting Document(s) osmolality serum 322 mOsm/kg 275-295 Above high normal Osmolality Serum [facility]) ID Date Data Source [id number] 03/30/2021 03:53:00 AM EDT [facility]) Name Value Range Interpretation Code Description Data Claribel rce(s) Supporting Document(s) lipase 63 U/L 73-393 Below low normal Lipase [facility]) ID Date Data Source [id number] 03/30/2021 03:53:00 AM EDT [facility] ([facility]) Name Value Range Interpretation Code Description Data Claribel rce(s) Supporting Document(s) phosphorus level 2.9 mg/dL 2.5-4.9 Phosphorus Level AT [facility]) ID Date Data Source [id number] 03/30/2021 03:53:00 AM EDT [facility] ([facility]) Name Value Range Interpretation Code Description Data Claribel rce(s) Supporting Document(s) glucose, fasting 332 mg/dL 70-100 Above high normal Glucose, Fas ting [facility] ([facility]) blood urea nitrogen 18 mg/dL 7-18 Blood Urea Nitro gen [facility] ([facility]) creatinine for GFR 1.19 mg/dL 0.55-1.30 Creatinine for GF R [facility] ([facility]) glomerular filtration rate >60 Below low normal Mariza merular Filtration Rate [facility] ([facility]) sodium level 140 mEq/L 136-145 Sodium Level [facility] (No [facility]) potassium serum 4.5 mEq/L 3.5-5.1 Potassium Serum ATH NA ([facility]) chloride level 112 mEq/L 98-107 Above high normal Chloride Level [facility] ([facility]) carbon dioxide level 8 mEq/L 21-32 Below low normal Carbon Di oxide Level [facility] ([facility]) anion gap 20 mEq/L 8-16 Above high normal Anion Gap [facility] ([facility]) calcium level 8.3 mg/dL 8.5-10.1 Below low normal Calcium Level AT [facility]) ID Date Data Source [id number] 03/30/2021 03:53:00 AM EDT [facility]) Name Value Range Interpretation Code Description Data Claribel rce(s) Supporting Document(s) Hemoglobin A1c/Hemoglobin.total in Blood 11.3 % Hemoglobin a1C [facility]) estimated average glucose 278 mg/dL 60-110 Above high norm al Estimated Average Glucose [facility] ([facility]) ID Date Data Source [id number] 03/30/2021 03:53:00 AM EDT [facility]) Name Value Range Interpretation Code Description Data Claribel rce(s) Supporting Document(s) venous pH 7.174 units 7.330-7.430 Below low normal Venous pH [facility] ([facility]) venous partial pressure CO2 19.8 mmHg 38.0-50.0 Below low nor mal Venous Partial Pressure CO2 [facility] ([facility]) venous partial pressure O2 139.4 mmHg 30.0-50.0 Above high nor mal Venous Partial Pressure O2 [facility] ([facility]) venous total CO2 7.7 mEq/L 24.0-28.0 Below low normal Venous Total CO2 [facility] ([facility]) venous HCO3 7.1 mEq/L 23.0-27.0 Below low normal Venous HCO3 [facility] ([facility]) venous base excess -2.0-2.0 Below low normal Venous Base Excess [facility] ([facility]) venous standard HCO3 10.4 mEq/L Venous Standard HCO3 [facility] ([facility]) venous O2 saturation 98.8 % 60.0-80.0 Above high normal Venous O 2 Saturation [facility] ([facility]) venous site unknown Venous Site [facility] ([facility]) ID Date Data Source [id number] 03/30/2021 03:53:00 AM EDT [facility]) Name Value Range Interpretation Code Description Data Claribel rce(s) Supporting Document(s) osmolality serum 322 mOsm/kg 275-295 Above high normal Osmolality Serum [facility]) ID Date Data Source [id number] 03/30/2021 03:53:00 AM EDT [facility]) Name Value Range Interpretation Code Description Data Claribel rce(s) Supporting Document(s) lipase 63 U/L 73-393 Below low normal Lipase [facility] ( [facility]) ID Date Data Source [id number] 03/30/2021 03:53:00 AM EDT [facility] ([facility]) Name Value Range Interpretation Code Description Data Claribel rce(s) Supporting Document(s) phosphorus level 2.9 mg/dL 2.5-4.9 Phosphorus Level AT [facility]) ID Date Data Source [id number] 03/30/2021 03:53:00 AM EDT [facility]) Name Value Range Interpretation Code Description Data Claribel rce(s) Supporting Document(s) glucose, fasting 332 mg/dL 70-100 Above high normal Glucose, Fas ting [facility] ([facility]) blood urea nitrogen 18 mg/dL 7-18 Blood Urea Nitro gen [facility] ([facility]) creatinine for GFR 1.19 mg/dL 0.55-1.30 Creatinine for GF R [facility] ([facility]) glomerular filtration rate >60 Below low normal Mariza merular Filtration Rate [facility] ([facility]) sodium level 140 mEq/L 136-145 Sodium Level [facility] ([facility]) potassium serum 4.5 mEq/L 3.5-5.1 Potassium Serum ATH NA ([facility]) chloride level 112 mEq/L 98-107 Above high normal Chloride Level [facility] ([facility]) carbon dioxide level 8 mEq/L 21-32 Below low normal Carbon Di oxide Level [facility] ([facility]) anion gap 20 mEq/L 8-16 Above high normal Anion Gap [facility] ([facility]) calcium level 8.3 mg/dL 8.5-10.1 Below low normal Calcium Level AT [facility]) ID Date Data Source [id number] 03/30/2021 03:53:00 AM EDT [facility]) Name Value Range Interpretation Code Description Data Claribel rce(s) Supporting Document(s) Hemoglobin A1c/Hemoglobin.total in Blood 11.3 % Hemoglobin a1C [facility] ([facility]) estimated average glucose 278 mg/dL 60-110 Above high norm al Estimated Average Glucose [facility] ([facility]) ID Date Data Source [id number] 03/30/2021 03:53:00 AM EDT [facility]) Name Value Range Interpretation Code Description Data Claribel rce(s) Supporting Document(s) venous pH 7.174 units 7.330-7.430 Below low normal Venous pH [facility] ([facility]) venous partial pressure CO2 19.8 mmHg 38.0-50.0 Below low nor mal Venous Partial Pressure CO2 [facility] ([facility]) venous partial pressure O2 139.4 mmHg 30.0-50.0 Above high nor mal Venous Partial Pressure O2 [facility] ([facility]) venous total CO2 7.7 mEq/L 24.0-28.0 Below low normal Venous Total CO2 [facility] ([facility]) venous HCO3 7.1 mEq/L 23.0-27.0 Below low normal Venous HCO3 [facility] ([facility]) venous base excess -2.0-2.0 Below low normal Venous Base Excess [facility] ([facility]) venous standard HCO3 10.4 mEq/L Venous Standard HCO3 [facility] ([facility]) venous O2 saturation 98.8 % 60.0-80.0 Above high normal Venous O 2 Saturation [facility] ([facility]) venous site unknown Venous Site [facility] ([facility]) ID Date Data Source [id number] 03/30/2021 03:53:00 AM EDT [facility] ([facility]) Name Value Range Interpretation Code Description Data Claribel rce(s) Supporting Document(s) lipase 63 U/L 73-393 Below low normal Lipase [facility]) ID Date Data Source [id number] 03/30/2021 03:53:00 AM EDT [facility]) Name Value Range Interpretation Code Description Data Claribel rce(s) Supporting Document(s) phosphorus level 2.9 mg/dL 2.5-4.9 Phosphorus Level AT [facility] ([facility]) ID Date Data Source [id number] 03/30/2021 03:53:00 AM EDT [facility] ([facility]) Name Value Range Interpretation Code Description Data Claribel rce(s) Supporting Document(s) glucose, fasting 332 mg/dL 70-100 Above high normal Glucose, Fas ting [facility] ([facility]) blood urea nitrogen 18 mg/dL 7-18 Blood Urea Nitro gen [facility] ([facility]) creatinine for GFR 1.19 mg/dL 0.55-1.30 Creatinine for GF R [facility] ([facility]) glomerular filtration rate >60 Below low normal Mariza merular Filtration Rate [facility] ([facility]) sodium level 140 mEq/L 136-145 Sodium Level [facility] ([facility]) potassium serum 4.5 mEq/L 3.5-5.1 Potassium Serum ATH NA ([facility]) chloride level 112 mEq/L 98-107 Above high normal Chloride Level [facility] ([facility]) carbon dioxide level 8 mEq/L 21-32 Below low normal Carbon Di oxide Level [facility] ([facility]) anion gap 20 mEq/L 8-16 Above high normal Anion Gap [facility] ([facility]) calcium level 8.3 mg/dL 8.5-10.1 Below low normal Calcium Level AT [facility]) ID Date Data Source [id number] 03/30/2021 03:53:00 AM EDT [facility] ([facility]) Name Value Range Interpretation Code Description Data Claribel rce(s) Supporting Document(s) Hemoglobin A1c/Hemoglobin.total in Blood 11.3 % Hemoglobin a1C [facility] ([facility]) estimated average glucose 278 mg/dL 60-110 Above high norm al Estimated Average Glucose [facility]) ID Date Data Source [id number] 03/30/2021 03:53:00 AM EDT [facility] ([facility]) Name Value Range Interpretation Code Description Data Claribel rce(s) Supporting Document(s) venous pH 7.174 units 7.330-7.430 Below low normal Venous pH [facility] ([facility]) venous partial pressure CO2 19.8 mmHg 38.0-50.0 Below low nor mal Venous Partial Pressure CO2 [facility] ([facility]) venous partial pressure O2 139.4 mmHg 30.0-50.0 Above high nor mal Venous Partial Pressure O2 [facility] ([facility]) venous total CO2 7.7 mEq/L 24.0-28.0 Below low normal Venous Total CO2 [facility] ([facility]) venous HCO3 7.1 mEq/L 23.0-27.0 Below low normal Venous HCO3 [facility] ([facility]) venous base excess -2.0-2.0 Below low normal Venous Base Excess [facility] ([facility]) venous standard HCO3 10.4 mEq/L Venous Standard HCO3 [facility] ([facility]) venous O2 saturation 98.8 % 60.0-80.0 Above high normal Venous O 2 Saturation [facility] ([facility]) venous site unknown Venous Site [facility] ([facility]) ID Date Data Source [id number] 03/30/2021 03:18:00 AM EDT [facility] ([facility]) Name Value Range Interpretation Code Description Data Claribel rce(s) Supporting Document(s) bedside glucose 292 mg/dL 70-105 Above high normal Bedside Gluco se [facility] ([facility]) ID Date Data Source [id number] 03/30/2021 03:18:00 AM EDT [facility]) Name Value Range Interpretation Code Description Data Claribel rce(s) Supporting Document(s) bedside glucose 292 mg/dL 70-105 Above high normal Bedside Gluco se [facility] ([facility]) ID Date Data Source [id number] 03/30/2021 03:18:00 AM EDT [facility] ([facility]) Name Value Range Interpretation Code Description Data Claribel rce(s) Supporting Document(s) bedside glucose 292 mg/dL 70-105 Above high normal Bedside Gluco se [facility] ([facility]) ID Date Data Source [id number] 03/30/2021 12:18:00 AM EDT [facility] ([facility]) Name Value Range Interpretation Code Description Data Claribel rce(s) Supporting Document(s) istat B-HCG < 5.0 Istat B-HCG [facility] ([facility]) ID Date Data Source [id number] 03/30/2021 12:18:00 [facility] Name Value Range Interpretation Code Description Data Claribel rce(s) Supporting Document(s) istat B-HCG < 5.0 Istat B-HCG [facility] ([facility]) ID Date Data Source [id number] 03/30/2021 12:18:00 [facility] Name Value Range Interpretation Code Description Data Claribel rce(s) Supporting Document(s) istat B-HCG < 5.0 Istat B-HCG [facility] ([facility]) ID Date Data Source [id number] 03/30/2021 12:15:00 AM EDT [facility] ([facility]) Name Value Range Interpretation Code Description Data Claribel rce(s) Supporting Document(s) istat HCT 41.0 % 38.0-51.0 Istat HCT [facility] ([facility]) istat glucose 317 mg/dL 70-105 Above high normal Istat Glucose A [facility] ([facility]) istat sodium 137 mEq/L 136-145 Istat Sodium [facility] ([facility]) istat potassium 5.1 mEq/L 3.5-5.1 Istat Potassium ATHE NA ([facility]) istat Ca++ 5.3 mg/dL 4.5-5.3 Istat Ca++ [facility] ([facility]) istat chloride 112 mEq/L 98-109 Above high normal Istat Chloride [facility] ([facility]) istat CO2 12.0 mm/L 23.0-27.0 Below low normal Istat CO2 [facility] ( [facility]) istat BUN 27 mg/dL 8-26 Above high normal Istat BUN [facility] ([facility]) istat creatinine 1.0 mg/dL 0.6-1.3 Istat Creatinine AT [facility]) ID Date Data Source [id number] 03/30/2021 12:15:00 AM EDT [facility] ([facility]) Name Value Range Interpretation Code Description Data Claribel rce(s) Supporting Document(s) istat HCT 41.0 % 38.0-51.0 Istat HCT [facility] ([facility]) istat glucose 317 mg/dL 70-105 Above high normal Istat Glucose A [facility] ([facility]) istat sodium 137 mEq/L 136-145 Istat Sodium [facility] ([facility]) istat potassium 5.1 mEq/L 3.5-5.1 Istat Potassium ATHE NA ([facility]) istat Ca++ 5.3 mg/dL 4.5-5.3 Istat Ca++ [facility] ([facility]) istat chloride 112 mEq/L 98-109 Above high normal Istat Chloride [facility] ([facility]) istat CO2 12.0 mm/L 23.0-27.0 Below low normal Istat CO2 [facility] ( [facility]) istat BUN 27 mg/dL 8-26 Above high normal Istat BUN [facility] ([facility]) istat creatinine 1.0 mg/dL 0.6-1.3 Istat Creatinine AT [facility]) ID Date Data Source [id number] 03/30/2021 12:15:00 AM EDT [facility]) Name Value Range Interpretation Code Description Data Claribel rce(s) Supporting Document(s) istat HCT 41.0 % 38.0-51.0 Istat HCT [facility] ([facility]) istat glucose 317 mg/dL 70-105 Above high normal Istat Glucose A [facility] ([facility]) istat sodium 137 mEq/L 136-145 Istat Sodium [facility] ([facility]) istat potassium 5.1 mEq/L 3.5-5.1 Istat Potassium ATH NA ([facility]) istat Ca++ 5.3 mg/dL 4.5-5.3 Istat Ca++ [facility] ([facility]) istat chloride 112 mEq/L 98-109 Above high normal Istat Chloride [facility] ([facility]) istat CO2 12.0 mm/L 23.0-27.0 Below low normal Istat CO2 [facility] ( [facility]) istat BUN 27 mg/dL 8-26 Above high normal Istat BUN [facility] ([facility]) istat creatinine 1.0 mg/dL 0.6-1.3 Istat Creatinine AT [facility]) ID Date Data Source [id number] 03/29/2021 11:54:00 PM EDT [facility] ([facility]) Name Value Range Interpretation Code Description Data Claribel rce(s) Supporting Document(s) appearance, urine rfx clear clear Appearance, Ur ine Rfx [facility] ([facility]) color, urine rfx yellow yellow Color, Urine Rfx AT [facility] ([facility]) pH,urine rfx 6.0 units 5.0-9.0 pH,urine Rfx [facility] ([facility]) specific gravity ur auto rfx 1.002-1.035 Specif ic [place] Ur Auto Rfx [facility] ([facility]) protein, urine auto rfx 3+ negative Above high normal Prote in, Urine Auto Rfx [facility] ([facility]) glucose, urine (UA) auto rfx 3+ negative Above high n ormal Glucose, Urine (UA) Auto Rfx [facility] ([facility]) ketone, urine auto rfx 2+ negative Above high normal Ketone , Urine Auto Rfx [facility] ([facility]) urobilinogen, urine auto rfx 0.2 mg/dL 0.0-2.0 Urobili nogen, Urine Auto Rfx [facility] ([facility]) bilirubin, urine auto rfx negative negative Bilirubin, Urine Auto Rfx [facility] ([facility]) nitrite, urine auto rfx negative negative Nitrite, Uri ne Auto Rfx [facility] ([facility]) leukocyte esterase ur auto rfx negative negative Leukocyte Esterase Ur Auto Rfx [facility] ([facility]) blood, urine blood rfx 1+ negative Above high normal Blood, Urine Blood Rfx [facility] ([facility]) WBC, urine auto rfx 1 /hpf 0-3 WBC, Urine Auto Rfx [facility] ([facility]) RBC, urine auto rfx 3 /hpf 0-3 RBC, Urine Auto Rfx [facility] ([facility]) bacteria, urine auto rfx negative negative Bacteria, U rine Auto Rfx [facility] ([facility]) squam epithelial cell ur aurfx 0 /hpf 0-6 Squam Epithelial Cell Ur Aurfx [facility] ([facility]) mucus, urine rfx small negative Mucus, Urine Rfx AT [facility] ([facility]) hyaline cast, urine auto rfx 8 /lpf 0-1 Hyaline Cast, Urine Auto Rfx [facility] ([facility]) ID Date Data Source [id number] 03/29/2021 11:54:00 PM EDT [facility] ([facility]) Name Value Range Interpretation Code Description Data Claribel rce(s) Supporting Document(s) acetone/ketone > 46.00 <2.81 Above high normal Acetone/ketone [facility]) ID Date Data Source [id number] 03/29/2021 11:54:00 PM EDT [facility] ([facility]) Name Value Range Interpretation Code Description Data Claribel rce(s) Supporting Document(s) white blood count 5.8 10 4.0-10.0 White Blood Count [facility] ([facility]) red blood count 4.70 10 4.00-5.40 Red Blood Count [facility] ([facility]) hemoglobin 13.8 g/dL 12.0-15.5 Hemoglobin [facility] ([facility]) hematocrit 42.5 % 36.0-47.0 Hematocrit [facility] ([facility]) mean corpuscular volume 90.4 fL 80.0-96.0 Mean Corpusc ular Volume [facility] ([facility]) mean corpuscular hemoglobin 29.4 pg 27.0-33.0 Mean Cor puscular Hemoglobin [facility] ([facility]) mean corpuscular HGB conc 32.5 g/dL 32.0-36.5 Mean Corpu scular HGB Conc [facility] ([facility]) red cell distribution width 12.0 % 11.5-14.5 Red Cell Distribution Width [facility] ([facility]) platelet count, automated 295 10 150-450 Platelet C ount, Automated [facility] ([facility]) neutrophils % 80.7 % 36.0-66.0 Above high normal Neutrophils % A [facility] ([facility]) lymph % 14.0 % 24.0-44.0 Below low normal Lymph % [facility] ( [facility]) mono % 4.3 % 2.0-8.0 Wood % [facility] ([facility]) eos % 0.0 % 0.0-3.0 Eos % [facility] ([facility]) baso % 0.3 % 0.0-1.0 Baso % [facility] ([facility]) immature granulocyte % 0.7 % 0-3.0 Immature Gran ulocyte % [facility] ([facility]) nucleated red blood cell % 0.0 % 0-0 Nucleated Red Blood Cell % [facility] ([facility]) neutrophils # 4.7 10 1.5-8.5 Neutrophils # [facility] ( [facility]) lymph # 0.8 10 1.5-5.0 Below low normal Lymph # [facility] ( [facility]) mono # 0.3 10 0.0-0.8 Wood # [facility] ([facility]) eos # 0.0 10 0.0-0.5 Eos # [facility] ([facility]) baso # 0.0 10 0.0-0.2 Baso # [facility] ([facility]) ID Date Data Source [id number] 03/29/2021 11:54:00 PM EDT [facility] ([facility]) Name Value Range Interpretation Code Description Data Claribel rce(s) Supporting Document(s) venous pH 7.148 units 7.330-7.430 Below low normal Venous pH [facility] ([facility]) venous partial pressure CO2 26.3 mmHg 38.0-50.0 Below low nor mal Venous Partial Pressure CO2 [facility] ([facility]) venous partial pressure O2 43.7 mmHg 30.0-50.0 Venous Pa rtial Pressure O2 [facility] ([facility]) venous total CO2 9.7 mEq/L 24.0-28.0 Below low normal Venous Total CO2 [facility] ([facility]) venous HCO3 8.9 mEq/L 23.0-27.0 Below low normal Venous HCO3 [facility] ([facility]) venous base excess -2.0-2.0 Below low normal Venous Base Excess [facility] ([facility]) venous standard HCO3 10.8 mEq/L Venous Standard HCO3 [facility] ([facility]) venous O2 saturation 77.5 % 60.0-80.0 Venous O2 Satur ation [facility] ([facility]) ID Date Data Source [id number] 03/29/2021 11:54:00 PM EDT [facility] ([facility]) Name Value Range Interpretation Code Description Data Claribel rce(s) Supporting Document(s) acetone/ketone > 46.00 <2.81 Above high normal Acetone/ketone [facility] ([facility]) ID Date Data Source [id number] 03/29/2021 11:54:00 PM EDT [facility] ([facility]) Name Value Range Interpretation Code Description Data Claribel rce(s) Supporting Document(s) white blood count 5.8 10 4.0-10.0 White Blood Count [facility] ([facility]) red blood count 4.70 10 4.00-5.40 Red Blood Count AT[facility] NA ([facility]) hemoglobin 13.8 g/dL 12.0-15.5 Hemoglobin [facility] ([facility]) mean corpuscular volume 90.4 fL 80.0-96.0 Mean Corpusc ular Volume [facility] ([facility]) hematocrit 42.5 % 36.0-47.0 Hematocrit [facility] ([facility]) mean corpuscular hemoglobin 29.4 pg 27.0-33.0 Mean Cor puscular Hemoglobin [facility] ([facility]) mean corpuscular HGB conc 32.5 g/dL 32.0-36.5 Mean Corpu scular HGB Conc [facility] ([facility]) red cell distribution width 12.0 % 11.5-14.5 Red Cell Distribution Width [facility] ([facility]) platelet count, automated 295 10 150-450 Platelet C ount, Automated [facility] ([facility]) neutrophils % 80.7 % 36.0-66.0 Above high normal Neutrophils % A [facility] ([facility]) lymph % 14.0 % 24.0-44.0 Below low normal Lymph % [facility] ( [facility]) eos % 0.0 % 0.0-3.0 Eos % [facility] ([facility]) mono % 4.3 % 2.0-8.0 Wood % [facility] ([facility]) baso % 0.3 % 0.0-1.0 Baso % [facility] ([facility]) immature granulocyte % 0.7 % 0-3.0 Immature Gran ulocyte % [facility] ([facility]) nucleated red blood cell % 0.0 % 0-0 Nucleated Red Blood Cell % [facility] ([facility]) neutrophils # 4.7 10 1.5-8.5 Neutrophils # [facility] ( [facility]) lymph # 0.8 10 1.5-5.0 Below low normal Lymph # [facility] ( [facility]) mono # 0.3 10 0.0-0.8 Wood # [facility] ([facility]) eos # 0.0 10 0.0-0.5 Eos # [facility] ([facility]) baso # 0.0 10 0.0-0.2 Baso # [facility] ([facility]) ID Date Data Source [id number] 03/29/2021 11:54:00 PM EDT [facility] ([facility]) Name Value Range Interpretation Code Description Data Claribel rce(s) Supporting Document(s) venous pH 7.148 units 7.330-7.430 Below low normal Venous pH [facility] ([facility]) venous partial pressure CO2 26.3 mmHg 38.0-50.0 Below low nor mal Venous Partial Pressure CO2 [facility] ([facility]) venous partial pressure O2 43.7 mmHg 30.0-50.0 Venous Pa rtial Pressure O2 [facility] ([facility]) venous total CO2 9.7 mEq/L 24.0-28.0 Below low normal Venous Total CO2 [facility] ([facility]) venous base excess -2.0-2.0 Below low normal Venous Base Excess [facility] ([facility]) venous HCO3 8.9 mEq/L 23.0-27.0 Below low normal Venous HCO3 [facility] ([facility]) venous standard HCO3 10.8 mEq/L Venous Standard HCO3 [facility] ([facility]) venous O2 saturation 77.5 % 60.0-80.0 Venous O2 Satur ation [facility] ([facility]) ID Date Data Source [id number] 03/29/2021 11:54:00 PM EDT [facility] ([facility]) Name Value Range Interpretation Code Description Data Claribel rce(s) Supporting Document(s) appearance, urine rfx clear clear Appearance, Ur ine Rfx [facility] ([facility]) color, urine rfx yellow yellow Color, Urine Rfx AT [facility] ([facility]) pH,urine rfx 6.0 units 5.0-9.0 pH,urine Rfx [facility] (No [facility]) specific gravity ur auto rfx 1.002-1.035 Specif ic [place] Ur Auto Rfx [facility] ([facility]) protein, urine auto rfx 3+ negative Above high normal Prote in, Urine Auto Rfx [place] ([facility]) glucose, urine (UA) auto rfx 3+ negative Above high n ormal Glucose, Urine (UA) Auto Rfx [place] ([facility]) ketone, urine auto rfx 2+ negative Above high normal Ketone , Urine Auto Rfx [place] ([facility]) urobilinogen, urine auto rfx 0.2 mg/dL 0.0-2.0 Urobili nogen, Urine Auto Rfx [facility] ([facility]) bilirubin, urine auto rfx negative negative Bilirubin, Urine Auto Rfx [place] ([facility]) nitrite, urine auto rfx negative negative Nitrite, Uri ne Auto Rfx [place] ([facility]) leukocyte esterase ur auto rfx negative negative Leukocyte Esterase Ur Auto Rfx [place] ([facility]) blood, urine blood rfx 1+ negative Above high normal Blood, Urine Blood Rfx [place] ([facility]) WBC, urine auto rfx 1 /hpf 0-3 WBC, Urine Auto Rfx [facility] ([facility]) RBC, urine auto rfx 3 /hpf 0-3 RBC, Urine Auto Rfx [place] ([facility]) bacteria, urine auto rfx negative negative Bacteria, U rine Auto Rfx [place] ([facility]) squam epithelial cell ur aurfx 0 /hpf 0-6 Squam Epithelial Cell Ur Aurfx [place] ([facility]) mucus, urine rfx small negative Mucus, Urine Rfx AT [facility] ([facility]) hyaline cast, urine auto rfx 8 /lpf 0-1 Hyaline Cast, Urine Auto Rfx [place] ([facility]) ID Date Data Source [id number] 03/29/2021 11:54:00 PM EDT [facility] ([facility]) Name Value Range Interpretation Code Description Data Claribel rce(s) Supporting Document(s) acetone/ketone > 46.00 <2.81 Above high normal Acetone/ketone [facility] ([facility]) ID Date Data Source [id number] 03/29/2021 11:54:00 PM EDT [facility] ([facility]) Name Value Range Interpretation Code Description Data Claribel rce(s) Supporting Document(s) white blood count 5.8 10 4.0-10.0 White Blood Count [facility] ([facility]) red blood count 4.70 10 4.00-5.40 Red Blood Count [facility] ([facility]) hemoglobin 13.8 g/dL 12.0-15.5 Hemoglobin [facility] ([facility]) hematocrit 42.5 % 36.0-47.0 Hematocrit [facility] ([facility]) mean corpuscular volume 90.4 fL 80.0-96.0 Mean Corpusc ular Volume [facility] ([facility]) mean corpuscular hemoglobin 29.4 pg 27.0-33.0 Mean Cor puscular Hemoglobin [facility] ([facility]) mean corpuscular HGB conc 32.5 g/dL 32.0-36.5 Mean Corpu scular HGB Conc [facility] ([facility]) red cell distribution width 12.0 % 11.5-14.5 Red Cell Distribution Width [facility] ([facility]) platelet count, automated 295 10 150-450 Platelet C ount, Automated [facility] ([facility]) neutrophils % 80.7 % 36.0-66.0 Above high normal Neutrophils % A [facility] ([facility]) lymph % 14.0 % 24.0-44.0 Below low normal Lymph % [facility] ( [facility]) mono % 4.3 % 2.0-8.0 Wood % [facility] ([facility]) eos % 0.0 % 0.0-3.0 Eos % [facility] ([facility]) baso % 0.3 % 0.0-1.0 Baso % [facility] ([facility]) immature granulocyte % 0.7 % 0-3.0 Immature Gran ulocyte % [facility] ([facility]) nucleated red blood cell % 0.0 % 0-0 Nucleated Red Blood Cell % [facility] ([facility]) lymph # 0.8 10 1.5-5.0 Below low normal Lymph # [facility] ( [facility]) neutrophils # 4.7 10 1.5-8.5 Neutrophils # [facility] ( [facility]) mono # 0.3 10 0.0-0.8 Wood # [facility] ([facility]) eos # 0.0 10 0.0-0.5 Eos # [facility] ([facility]) baso # 0.0 10 0.0-0.2 Baso # [facility] ([facility]) ID Date Data Source [id number] 03/29/2021 11:54:00 PM EDT [place] ([facility]) Name Value Range Interpretation Code Description Data Claribel rce(s) Supporting Document(s) venous pH 7.148 units 7.330-7.430 Below low normal Venous pH [facility] ([facility]) venous partial pressure CO2 26.3 mmHg 38.0-50.0 Below low nor mal Venous Partial Pressure CO2 [facility] ([facility]) venous partial pressure O2 43.7 mmHg 30.0-50.0 Venous Pa rtial Pressure O2 [facility] ([facility]) venous total CO2 9.7 mEq/L 24.0-28.0 Below low normal Venous Total CO2 [facility] ([facility]) venous HCO3 8.9 mEq/L 23.0-27.0 Below low normal Venous HCO3 [facility] ([facility]) venous base excess -2.0-2.0 Below low normal Venous Base Excess [facility] ([facility]) venous standard HCO3 10.8 mEq/L Venous Standard HCO3 [facility] ([facility]) venous O2 saturation 77.5 % 60.0-80.0 Venous O2 Satur ation [facility] ([facility]) ID Date Data Source [id number] 03/29/2021 11:54:00 PM EDT [place] ([facility]) Name Value Range Interpretation Code Description Data Claribel rce(s) Supporting Document(s) color, urine rfx yellow yellow Color, Urine Rfx AT [place] ([facility]) appearance, urine rfx clear clear Appearance, Ur ine Rfx [place] ([facility]) pH,urine rfx 6.0 units 5.0-9.0 pH,urine Rfx [facility] (No [facility]) specific gravity ur auto rfx 1.002-1.035 Specif ic [place] Ur Auto Rfx [facility] ([facility]) protein, urine auto rfx 3+ negative Above high normal Prote in, Urine Auto Rfx [place] ([facility]) glucose, urine (UA) auto rfx 3+ negative Above high n ormal Glucose, Urine (UA) Auto Rfx [place] ([facility]) ketone, urine auto rfx 2+ negative Above high normal Ketone , Urine Auto Rfx [place] ([facility]) bilirubin, urine auto rfx negative negative Bilirubin, Urine Auto Rfx [place] ([facility]) urobilinogen, urine auto rfx 0.2 mg/dL 0.0-2.0 Urobili nogen, Urine Auto Rfx [place] ([facility]) nitrite, urine auto rfx negative negative Nitrite, Uri ne Auto Rfx [place] ([facility]) leukocyte esterase ur auto rfx negative negative Leukocyte Esterase Ur Auto Rfx [place] ([facility]) blood, urine blood rfx 1+ negative Above high normal Blood, Urine Blood Rfx [place] ([facility]) WBC, urine auto rfx 1 /hpf 0-3 WBC, Urine Auto Rfx [place] ([facility]) RBC, urine auto rfx 3 /hpf 0-3 RBC, Urine Auto Rfx [place] ([facility]) bacteria, urine auto rfx negative negative Bacteria, U rine Auto Rfx [place] ([facility]) squam epithelial cell ur aurfx 0 /hpf 0-6 Squam Epithelial Cell Ur Aurfx [place] ([facility]) mucus, urine rfx small negative Mucus, Urine Rfx AT [facility] ([facility]) hyaline cast, urine auto rfx 8 /lpf 0-1 Hyaline Cast, Urine Auto Rfx [place] ([facility]) ID Date Data Source [id number] 03/29/2021 09:58:00 PM EDT [facility]) Name Value Range Interpretation Code Description Data Claribel rce(s) Supporting Document(s) ID Date Data Source [id number] 03/29/2021 09:58:00 PM EDT [place] ([facility]) Name Value Range Interpretation Code Description Data Claribel rce(s) Supporting Document(s) ID Date Data Source [id number] 03/29/2021 09:58:00 PM EDT [facility] Name Value Range Interpretation Code Description Data Claribel rce(s) Supporting Document(s) SARS-CoV-2 (COVID 19) NEGATIVE - SARS-CoV-2 (COVID19) [facility] This lab was ordered by [facility] a nd reported by [facility]. ID Date Data Source [id number] 03/29/2021 09:58:00 PM EDT [facility]) Name Value Range Interpretation Code Description Data Claribel rce(s) Supporting Document(s) ID Date Data Source [id number] 03/26/2021 12:00:00 AM EDT [facility] Name Value Range Interpretation Code Description Data Claribel rce(s) Supporting Document(s) SARS-CoV2 Rapid Antigen Negative [facility] This lab was ordered by [facility] and reported by [facility]. 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 [file] ID Date Data Source [id number] 02/20/2021 01:30:12 PM EDT [facility] Name Value Range Interpretation Code Description Data Claribel rce(s) Supporting Document(s) Progress Note [facility] [id number] lbm [file] [id number] ID Date Data Source [id number] 12/24/2020 12:00:00 AM EST [facility] Name Value Range Interpretation Code Description Data Claribel rce(s) Supporting Document(s) SARS coronavirus 2 RNA [Presence] in Res piratory specimen by ANDREE with probe detection NEGATIVE [facility] This lab was ordered by [facility] and reported by [facility]. ID Date Data Source [id number] 12/13/2020 09:35:00 AM EST [facility] ([facility]) Name Value Range Interpretation Code Description Data Claribel rce(s) Supporting Document(s) glucose, fasting 270 mg/dL 70-100 Above high normal Glucose, Fas ting [facility] ([facility]) blood urea nitrogen 13 mg/dL 7-18 Blood Urea Nitro gen [facility] ([facility]) creatinine for GFR 1.13 mg/dL 0.55-1.30 Creatinine for GF R [place] ([facility]) glomerular filtration rate >60 Below low normal Mariza merular Filtration Rate [facility] ([facility]) sodium level 140 mEq/L 136-145 Sodium Level [facility] ([facility]) potassium serum 4.0 mEq/L 3.5-5.1 Potassium Serum [facility] ([facility]) chloride level 111 mEq/L 98-107 Above high normal Chloride Level [facility] ([facility]) carbon dioxide level 19 mEq/L 21-32 Below low normal Carbon Di oxide Level [facility] ([facility]) anion gap 10 mEq/L 8-16 Anion Gap [facility] ([facility]) calcium level 9.4 mg/dL 8.5-10.1 Calcium Level [facility] ( [facility]) ID Date Data Source [id number] 12/13/2020 09:35:00 AM EST [facility] ([facility]) Name Value Range Interpretation Code Description Data Claribel rce(s) Supporting Document(s) white blood count 3.4 10 4.0-10.0 Below low normal White Blood Count [facility] ([facility]) red blood count 4.04 10 4.00-5.40 Red Blood Count [facility] ([facility]) hemoglobin 11.8 g/dL 12.0-15.5 Below low normal Hemoglobin [facility] ( [facility]) hematocrit 35.7 % 36.0-47.0 Below low normal Hematocrit [facility] ( [facility]) mean corpuscular volume 88.4 fL 80.0-96.0 Mean Corpusc ular Volume [facility] ([facility]) mean corpuscular hemoglobin 29.2 pg 27.0-33.0 Mean Cor puscular Hemoglobin [facility] ([facility]) mean corpuscular HGB conc 33.1 g/dL 32.0-36.5 Mean Corpu scular HGB Conc [facility] ([facility]) red cell distribution width 13.2 % 11.5-14.5 Red Cell Distribution Width [facility] ([facility]) platelet count, automated 162 10 150-450 Platelet C ount, Automated [facility] ([facility]) nucleated red blood cell % 0.0 % 0-0 Nucleated Red Blood Cell % [facility] ([facility]) ID Date Data Source [id number] 12/13/2020 09:35:00 AM EST [facility] ([facility]) Name Value Range Interpretation Code Description Data Claribel rce(s) Supporting Document(s) glucose, fasting 270 mg/dL 70-100 Above high normal Glucose, Fas ting [facility] ([facility]) blood urea nitrogen 13 mg/dL 7-18 Blood Urea Nitro gen [facility] ([facility]) creatinine for GFR 1.13 mg/dL 0.55-1.30 Creatinine for GF R [facility] ([facility]) glomerular filtration rate >60 Below low normal Mariza merular Filtration Rate [facility] ([facility]) sodium level 140 mEq/L 136-145 Sodium Level [facility] ([facility]) potassium serum 4.0 mEq/L 3.5-5.1 Potassium Serum [facility] ([facility]) chloride level 111 mEq/L 98-107 Above high normal Chloride Level [place] ([facility]) carbon dioxide level 19 mEq/L 21-32 Below low normal Carbon Di oxide Level [facility] ([facility]) anion gap 10 mEq/L 8-16 Anion Gap [facility] ([facility]) calcium level 9.4 mg/dL 8.5-10.1 Calcium Level [facility] ( [facility]) ID Date Data Source [id number] 12/13/2020 09:35:00 AM EST [facility] ([facility]) Name Value Range Interpretation Code Description Data Claribel rce(s) Supporting Document(s) white blood count 3.4 10 4.0-10.0 Below low normal White Blood Count [facility] ([facility]) red blood count 4.04 10 4.00-5.40 Red Blood Count [facility] ([facility]) hemoglobin 11.8 g/dL 12.0-15.5 Below low normal Hemoglobin [facility] ( [facility]) hematocrit 35.7 % 36.0-47.0 Below low normal Hematocrit [facility] ( [facility]) mean corpuscular volume 88.4 fL 80.0-96.0 Mean Corpusc ular Volume [facility] ([facility]) mean corpuscular hemoglobin 29.2 pg 27.0-33.0 Mean Cor puscular Hemoglobin [facility] ([facility]) mean corpuscular HGB conc 33.1 g/dL 32.0-36.5 Mean Corpu scular HGB Conc [facility] ([facility]) red cell distribution width 13.2 % 11.5-14.5 Red Cell Distribution Width [facility] ([facility]) platelet count, automated 162 10 150-450 Platelet C ount, Automated [facility] ([facility]) nucleated red blood cell % 0.0 % 0-0 Nucleated Red Blood Cell % [facility] ([facility]) ID Date Data Source [id number] 12/13/2020 09:35:00 AM EST [facility] ([facility]) Name Value Range Interpretation Code Description Data Claribel rce(s) Supporting Document(s) glucose, fasting 270 mg/dL 70-100 Above high normal Glucose, Fas ting [facility] ([facility]) blood urea nitrogen 13 mg/dL 7-18 Blood Urea Nitro gen [facility] ([facility]) creatinine for GFR 1.13 mg/dL 0.55-1.30 Creatinine for GF R [facility] ([facility]) glomerular filtration rate >60 Below low normal Marzia merular Filtration Rate [facility] ([facility]) sodium level 140 mEq/L 136-145 Sodium Level [facility] ([facility]) potassium serum 4.0 mEq/L 3.5-5.1 Potassium Serum [facility] ([facility]) chloride level 111 mEq/L 98-107 Above high normal Chloride Level [facility] ([facility]) carbon dioxide level 19 mEq/L 21-32 Below low normal Carbon Di oxide Level [facility] ([facility]) anion gap 10 mEq/L 8-16 Anion Gap [facility] ([facility]) calcium level 9.4 mg/dL 8.5-10.1 Calcium Level [facility] ( [facility]) ID Date Data Source [id number] 12/13/2020 09:35:00 AM [facility] ([facility]) Name Value Range Interpretation Code Description Data Claribel rce(s) Supporting Document(s) white blood count 3.4 10 4.0-10.0 Below low normal White Blood Count [facility] ([facility]) red blood count 4.04 10 4.00-5.40 Red Blood Count [facility] ([facility]) hemoglobin 11.8 g/dL 12.0-15.5 Below low normal Hemoglobin [facility] ( [facility]) hematocrit 35.7 % 36.0-47.0 Below low normal Hematocrit [facility] ( [facility]) mean corpuscular volume 88.4 fL 80.0-96.0 Mean Corpusc ular Volume [facility] ([facility]) mean corpuscular hemoglobin 29.2 pg 27.0-33.0 Mean Cor puscular Hemoglobin [facility] ([facility]) mean corpuscular HGB conc 33.1 g/dL 32.0-36.5 Mean Corpu scular HGB Conc [facility] ([facility]) red cell distribution width 13.2 % 11.5-14.5 Red Cell Distribution Width [facility] ([facility]) platelet count, automated 162 10 150-450 Platelet C ount, Automated [facility] ([facility]) nucleated red blood cell % 0.0 % 0-0 Nucleated Red Blood Cell % [facility] ([facility]) ID Date Data Source [id number] 12/13/2020 09:35:00 AM [place] ([facility]) Name Value Range Interpretation Code Description Data Claribel rce(s) Supporting Document(s) glucose, fasting 270 mg/dL 70-100 Above high normal Glucose, Fas ting [facility] ([facility]) blood urea nitrogen 13 mg/dL 7-18 Blood Urea Nitro gen [facility] ([facility]) creatinine for GFR 1.13 mg/dL 0.55-1.30 Creatinine for GF R [facility] ([facility]) glomerular filtration rate >60 Below low normal Mariza merular Filtration Rate [facility] ([facility]) sodium level 140 mEq/L 136-145 Sodium Level [facility] ([facility]) potassium serum 4.0 mEq/L 3.5-5.1 Potassium Serum [facility] ([facility]) chloride level 111 mEq/L 98-107 Above high normal Chloride Level [facility] ([facility]) carbon dioxide level 19 mEq/L 21-32 Below low normal Carbon Di oxide Level [facility] ([facility]) anion gap 10 mEq/L 8-16 Anion Gap [facility] ([facility]) calcium level 9.4 mg/dL 8.5-10.1 Calcium Level [facility] ( [facility]) ID Date Data Source [id number] 12/13/2020 09:35:00 AM EST [facility]) Name Value Range Interpretation Code Description Data Claribel rce(s) Supporting Document(s) white blood count 3.4 10 4.0-10.0 Below low normal White Blood Count [facility] ([facility]) red blood count 4.04 10 4.00-5.40 Red Blood Count [facility] ([facility]) hemoglobin 11.8 g/dL 12.0-15.5 Below low normal Hemoglobin [facility] ( [facility]) hematocrit 35.7 % 36.0-47.0 Below low normal Hematocrit [facility] ( [facility]) mean corpuscular volume 88.4 fL 80.0-96.0 Mean Corpusc ular Volume [facility] ([facility]) mean corpuscular hemoglobin 29.2 pg 27.0-33.0 Mean Cor puscular Hemoglobin [facility] ([facility]) mean corpuscular HGB conc 33.1 g/dL 32.0-36.5 Mean Corpu scular HGB Conc [facility] ([facility]) red cell distribution width 13.2 % 11.5-14.5 Red Cell Distribution Width [facility] ([facility]) platelet count, automated 162 10 150-450 Platelet C ount, Automated [facility] ([facility]) nucleated red blood cell % 0.0 % 0-0 Nucleated Red Blood Cell % [facility] ([facility]) ID Date Data Source [id number] 12/13/2020 09:35:00 AM [place] ([facility]) Name Value Range Interpretation Code Description Data Claribel rce(s) Supporting Document(s) glucose, fasting 270 mg/dL 70-100 Above high normal Glucose, Fas ting [facility] ([facility]) blood urea nitrogen 13 mg/dL 7-18 Blood Urea Nitro gen [facility] ([facility]) creatinine for GFR 1.13 mg/dL 0.55-1.30 Creatinine for GF R [facility] ([facility]) glomerular filtration rate >60 Below low normal Mariza merular Filtration Rate [facility] ([facility]) sodium level 140 mEq/L 136-145 Sodium Level [facility] ([facility]) potassium serum 4.0 mEq/L 3.5-5.1 Potassium Serum ATHE NA ([facility]) chloride level 111 mEq/L 98-107 Above high normal Chloride Level TECOPA ([facility]) carbon dioxide level 19 mEq/L 21-32 Below low normal Carbon Di oxide Level CYNDI ([facility]) anion gap 10 mEq/L 8-16 Anion Gap CYNDI ([facility]) calcium level 9.4 mg/dL 8.5-10.1 Calcium Level CYNDI ( [facility]) ID Date Data Source [id number] 12/13/2020 09:35:00 AM EST CYNDI ([facility]) Name Value Range Interpretation Code Description Data Claribel rce(s) Supporting Document(s) white blood count 3.4 10 4.0-10.0 Below low normal White Blood Count CYNDI ([facility]) red blood count 4.04 10 4.00-5.40 Red Blood Count ATHE NA ([facility]) hemoglobin 11.8 g/dL 12.0-15.5 Below low normal Hemoglobin CYNDI ( [facility]) hematocrit 35.7 % 36.0-47.0 Below low normal Hematocrit CYNDI ( [facility]) mean corpuscular volume 88.4 fL 80.0-96.0 Mean Corpusc ular Volume CYNDI ([facility]) mean corpuscular hemoglobin 29.2 pg 27.0-33.0 Mean Cor puscular Hemoglobin [place]OP[place] ([facility]) red cell distribution width 13.2 % 11.5-14.5 Red Cell Distribution Width CYNDI ([facility]) mean corpuscular HGB conc 33.1 g/dL 32.0-36.5 Mean Corpu scular HGB Conc CYNDI ([facility]) platelet count, automated 162 10 150-450 Platelet C ount, Automated [place] ([facility]) nucleated red blood cell % 0.0 % 0-0 Nucleated Red Blood Cell % [place] ([facility]) ID Date Data Source [id number] 12/13/2020 09:35:00 AM EST [facility]) Name Value Range Interpretation Code Description Data Claribel rce(s) Supporting Document(s) glucose, fasting 270 mg/dL 70-100 Above high normal Glucose, Fas ting [place]OPA ([facility]) blood urea nitrogen 13 mg/dL 7-18 Blood Urea Nitro gen [place] ([facility]) creatinine for GFR 1.13 mg/dL 0.55-1.30 Creatinine for GF R [place] ([facility]) glomerular filtration rate >60 Below low normal Mariza merular Filtration Rate CYNDI ([facility]) sodium level 140 mEq/L 136-145 Sodium Level CYNDI ([facility]) chloride level 111 mEq/L 98-107 Above high normal Chloride Level [place] ([facility]) potassium serum 4.0 mEq/L 3.5-5.1 Potassium Serum ATH NA [facility]) carbon dioxide level 19 mEq/L 21-32 Below low normal Carbon Di oxide Level [place] ([facility]) anion gap 10 mEq/L 8-16 Anion Gap [place] ([facility]) calcium level 9.4 mg/dL 8.5-10.1 Calcium Level [place] ( [facility]) ID Date Data Source [id number] 12/13/2020 09:35:00 AM EST CYNDI ([facility]) Name Value Range Interpretation Code Description Data Claribel rce(s) Supporting Document(s) white blood count 3.4 10 4.0-10.0 Below low normal White Blood Count CYNDI ([facility]) red blood count 4.04 10 4.00-5.40 Red Blood Count ATHE ([facility]) hemoglobin 11.8 g/dL 12.0-15.5 Below low normal Hemoglobin CYNDI ( [facility]) hematocrit 35.7 % 36.0-47.0 Below low normal Hematocrit CYNDI ( [facility]) mean corpuscular volume 88.4 fL 80.0-96.0 Mean Corpusc ular Volume CYNDI ([facility]) mean corpuscular hemoglobin 29.2 pg 27.0-33.0 Mean Cor puscular Hemoglobin CYNDI ([facility]) mean corpuscular HGB conc 33.1 g/dL 32.0-36.5 Mean Corpu scular HGB Conc CYNDI ([facility]) red cell distribution width 13.2 % 11.5-14.5 Red Cell Distribution Width CYNDI ([facility]) platelet count, automated 162 10 150-450 Platelet C ount, Automated CYNDI ([facility]) nucleated red blood cell % 0.0 % 0-0 Nucleated Red Blood Cell % CYNDI ([facility]) ID Date Data Source [id number] 12/13/2020 07:31:00 AM EST CYNDI ([facility]) Name Value Range Interpretation Code Description Data Claribel rce(s) Supporting Document(s) bedside glucose 300 mg/dL 70-105 Above high normal Bedside Gluco se CYNDI ([facility]) ID Date Data Source [id number] 12/13/2020 07:31:00 AM EST CYNDI ([facility]) Name Value Range Interpretation Code Description Data Claribel rce(s) Supporting Document(s) bedside glucose 300 mg/dL 70-105 Above high normal Bedside Gluco se CYNDI ([facility]) ID Date Data Source [id number] 12/13/2020 07:31:00 AM EST CYNDI ([facility]) Name Value Range Interpretation Code Description Data Claribel rce(s) Supporting Document(s) bedside glucose 300 mg/dL 70-105 Above high normal Bedside Gluco se CYNDI ([facility]) ID Date Data Source [id number] 12/13/2020 07:31:00 AM EST CYNDI [facility]) Name Value Range Interpretation Code Description Data Claribel rce(s) Supporting Document(s) bedside glucose 300 mg/dL 70-105 Above high normal [facility] ID Date Data Source [id number] 12/13/2020 07:31:00 AM EST [facility]) Name Value Range Interpretation Code Description Data Claribel rce(s) Supporting Document(s) bedside glucose 300 mg/dL 70-105 Above high normal [facility] ID Date Data Source [id number] 12/13/2020 07:31:00 AM EST CYNDI ([facility]) Name Value Range Interpretation Code Description Data Claribel rce(s) Supporting Document(s) bedside glucose 300 mg/dL 70-105 Above high normal [facility] ID Date Data Source [id number] 12/12/2020 08:46:00 PM EST CYNDI [facility]) Name Value Range Interpretation Code Description Data Claribel rce(s) Supporting Document(s) bedside glucose 223 mg/dL 70-105 Above high normal [facility] ID Date Data Source [id number] 12/12/2020 08:46:00 PM EST CYNDI ([facility]) Name Value Range Interpretation Code Description Data Claribel rce(s) Supporting Document(s) bedside glucose 223 mg/dL 70-105 Above high normal Bedside Gluco se CYNDI ([facility]) ID Date Data Source [id number] 12/12/2020 08:46:00 PM EST CYNDI ([facility]) Name Value Range Interpretation Code Description Data Claribel rce(s) Supporting Document(s) bedside glucose 223 mg/dL 70-105 Above high normal Bedside Gluco se CYNDI ([facility]) ID Date Data Source [id number] 12/12/2020 08:46:00 PM EST CYNDI ([facility]) Name Value Range Interpretation Code Description Data Claribel rce(s) Supporting Document(s) bedside glucose 223 mg/dL 70-105 Above high normal Bedside Gluco se CYNDI ([facility]) ID Date Data Source [id number] 12/12/2020 08:46:00 PM EST CYNDI ([facility]) Name Value Range Interpretation Code Description Data Claribel rce(s) Supporting Document(s) bedside glucose 223 mg/dL 70-105 Above high normal Bedside Gluco se CYNDI ([facility]) ID Date Data Source [id number] 12/12/2020 08:46:00 PM EST CYNDI ([facility]) Name Value Range Interpretation Code Description Data Claribel rce(s) Supporting Document(s) bedside glucose 223 mg/dL 70-105 Above high normal Bedside Gluco se CYNDI ([facility]) ID Date Data Source [id number] 12/12/2020 04:33:00 PM EST CYNDI ([facility]) Name Value Range Interpretation Code Description Data Claribel rce(s) Supporting Document(s) bedside glucose 264 mg/dL 70-105 Above high normal Bedside Gluco se CYNDI ([facility]) ID Date Data Source [id number] 12/12/2020 04:33:00 PM EST CYNDI ([facility]) Name Value Range Interpretation Code Description Data Claribel rce(s) Supporting Document(s) bedside glucose 264 mg/dL 70-105 Above high normal Bedside Gluco se CYNDI ([facility]) ID Date Data Source [id number] 12/12/2020 04:33:00 PM EST CYNDI ([facility]) Name Value Range Interpretation Code Description Data Claribel rce(s) Supporting Document(s) bedside glucose 264 mg/dL 70-105 Above high normal Bedside Gluco se CYNDI ([facility]) ID Date Data Source [id number] 12/12/2020 04:33:00 PM EST CYNDI ([facility]) Name Value Range Interpretation Code Description Data Claribel rce(s) Supporting Document(s) bedside glucose 264 mg/dL 70-105 Above high normal Bedside Gluco se CYNDI ([facility]) ID Date Data Source [id number] 12/12/2020 04:33:00 PM EST CYNDI ([facility]) Name Value Range Interpretation Code Description Data Claribel rce(s) Supporting Document(s) bedside glucose 264 mg/dL 70-105 Above high normal [facility] ID Date Data Source [id number] 12/12/2020 04:33:00 PM EST CYNDI ([facility]) Name Value Range Interpretation Code Description Data Claribel rce(s) Supporting Document(s) bedside glucose 264 mg/dL 70-105 Above high normal Bedside Gluco se CYNDI ([facility]) ID Date Data Source [id number] 12/12/2020 12:02:00 PM EST CYNDI ([facility]) Name Value Range Interpretation Code Description Data Claribel rce(s) Supporting Document(s) bedside glucose 124 mg/dL 70-105 Above high normal Bedside Gluco se CYNDI ([facility]) ID Date Data Source [id number] 12/12/2020 12:02:00 PM EST CYNDI ([facility]) Name Value Range Interpretation Code Description Data Claribel rce(s) Supporting Document(s) bedside glucose 124 mg/dL 70-105 Above high normal Bedside Gluco se CYNDI ([facility]) ID Date Data Source [id number] 12/12/2020 12:02:00 PM EST CYNDI ([facility]) Name Value Range Interpretation Code Description Data Claribel rce(s) Supporting Document(s) bedside glucose 124 mg/dL 70-105 Above high normal Bedside Gluco se CYNDI ([facility]) ID Date Data Source [id number] 12/12/2020 12:02:00 PM EST CYNDI ([facility]) Name Value Range Interpretation Code Description Data Claribel rce(s) Supporting Document(s) bedside glucose 124 mg/dL 70-105 Above high normal Bedside Gluco se CYNDI ([facility]) ID Date Data Source [id number] 12/12/2020 12:02:00 PM EST CYNDI ([facility]) Name Value Range Interpretation Code Description Data Claribel rce(s) Supporting Document(s) bedside glucose 124 mg/dL 70-105 Above high normal Bedside Gluco se CYNDI ([facility]) ID Date Data Source [id number] 12/12/2020 12:02:00 PM EST CYNDI ([facility]) Name Value Range Interpretation Code Description Data Claribel rce(s) Supporting Document(s) bedside glucose 124 mg/dL 70-105 Above high normal Bedside Gluco se CYNDI ([facility]) ID Date Data Source [id number] 12/12/2020 08:03:00 AM EST CYNDI ([facility]) Name Value Range Interpretation Code Description Data Claribel rce(s) Supporting Document(s) bedside glucose 156 mg/dL 70-105 Above high normal Bedside Gluco se CYNDI ([facility]) ID Date Data Source [id number] 12/12/2020 08:03:00 AM EST CYNDI ([facility]) Name Value Range Interpretation Code Description Data Claribel rce(s) Supporting Document(s) bedside glucose 156 mg/dL 70-105 Above high normal Bedside Gluco se CYNDI ([facility]) ID Date Data Source [id number] 12/12/2020 08:03:00 AM EST CYNDI ([facility]) Name Value Range Interpretation Code Description Data Claribel rce(s) Supporting Document(s) bedside glucose 156 mg/dL 70-105 Above high normal Bedside Gluco se CYNDI ([facility]) ID Date Data Source [id number] 12/12/2020 08:03:00 AM EST CYNDI ([facility]) Name Value Range Interpretation Code Description Data Claribel rce(s) Supporting Document(s) bedside glucose 156 mg/dL 70-105 Above high normal Bedside Gluco se CYNDI ([facility]) ID Date Data Source [id number] 12/12/2020 08:03:00 AM EST CYNDI ([facility]) Name Value Range Interpretation Code Description Data Claribel rce(s) Supporting Document(s) bedside glucose 156 mg/dL 70-105 Above high normal Bedside Gluco se CYNDI ([facility]) ID Date Data Source [id number] 12/12/2020 08:03:00 AM EST CYNDI ([facility]) Name Value Range Interpretation Code Description Data Claribel rce(s) Supporting Document(s) bedside glucose 156 mg/dL 70-105 Above high normal Bedside Gluco se [place] ([facility]) ID Date Data Source [id number] 12/12/2020 06:26:00 AM EST CYNDI ([facility]) Name Value Range Interpretation Code Description Data Claribel rce(s) Supporting Document(s) bedside glucose 170 mg/dL 70-105 Above high normal Bedside Gluco se [facility]) ID Date Data Source [id number] 12/12/2020 06:26:00 AM EST CYNDI ([facility]) Name Value Range Interpretation Code Description Data Claribel rce(s) Supporting Document(s) bedside glucose 170 mg/dL 70-105 Above high normal Bedside Gluco se CYNDI ([facility]) ID Date Data Source [id number] 12/12/2020 06:26:00 AM [facility] Name Value Range Interpretation Code Description Data Claribel rce(s) Supporting Document(s) bedside glucose 170 mg/dL 70-105 Above high normal Bedside Gluco se CYNDI ([facility]) ID Date Data Source [id number] 12/12/2020 06:26:00 AM EST CYNDI ([facility]) Name Value Range Interpretation Code Description Data Claribel rce(s) Supporting Document(s) bedside glucose 170 mg/dL 70-105 Above high normal Bedside Gluco se [facility]) ID Date Data Source [id number] 12/12/2020 06:26:00 AM EST CYNDI ([facility]) Name Value Range Interpretation Code Description Data Claribel rce(s) Supporting Document(s) bedside glucose 170 mg/dL 70-105 Above high normal Bedside Gluco se CYNDI ([facility]) ID Date Data Source [id number] 12/12/2020 06:26:00 AM EST CYNDI ([facility]) Name Value Range Interpretation Code Description Data Claribel rce(s) Supporting Document(s) bedside glucose 170 mg/dL 70-105 Above high normal Bedside Gluco se CYNDI ([facility]) ID Date Data Source [id number] 12/12/2020 05:08:00 AM EST CYNDI ([facility]) Name Value Range Interpretation Code Description Data Claribel rce(s) Supporting Document(s) bedside glucose 114 mg/dL 70-105 Above high normal Bedside Gluco se CYNDI ([facility]) ID Date Data Source [id number] 12/12/2020 05:08:00 AM EST CYNDI ([facility]) Name Value Range Interpretation Code Description Data Claribel rce(s) Supporting Document(s) bedside glucose 114 mg/dL 70-105 Above high normal Bedside Gluco se CYNDI ([facility]) ID Date Data Source [id number] 12/12/2020 05:08:00 AM EST CYNDI ([facility]) Name Value Range Interpretation Code Description Data Claribel rce(s) Supporting Document(s) bedside glucose 114 mg/dL 70-105 Above high normal Bedside Gluco se CYNDI ([facility]) ID Date Data Source [id number] 12/12/2020 05:08:00 AM EST CYNDI ([facility]) Name Value Range Interpretation Code Description Data Claribel rce(s) Supporting Document(s) bedside glucose 114 mg/dL 70-105 Above high normal Bedside Gluco se CYNDI ([facility]) ID Date Data Source [id number] 12/12/2020 05:08:00 AM LE HANNA ([facility]) Name Value Range Interpretation Code Description Data Claribel rce(s) Supporting Document(s) bedside glucose 114 mg/dL 70-105 Above high normal Bedside Gluco se CYNDI ([facility]) ID Date Data Source [id number] 12/12/2020 05:08:00 AM LE [place]AN[place] ([facility]) Name Value Range Interpretation Code Description Data Claribel rce(s) Supporting Document(s) bedside glucose 114 mg/dL 70-105 Above high normal Bedside Gluco se HANNA ([facility]) ID Date Data Source [id number] 12/12/2020 04:32:00 AM LE HANNA [facility]) Name Value Range Interpretation Code Description Data Claribel rce(s) Supporting Document(s) magnesium level 2.6 mg/dL 1.8-2.4 Above high normal Magnesium [facility] ID Date Data Source [id number] 12/12/2020 04:32:00 AM LE HANNA [facility]) Name Value Range Interpretation Code Description Data Claribel rce(s) Supporting Document(s) phosphorus level 1.5 mg/dL 2.5-4.9 Below low normal Phosphorus Le karma HENRIQUEZENA ([facility]) ID Date Data Source [id number] 12/12/2020 04:32:00 AM EST CYNDI [facility]) Name Value Range Interpretation Code Description Data Claribel rce(s) Supporting Document(s) glucose, fasting 135 mg/dL 70-100 Above high normal Glucose, Fas ting [place] ([facility]) blood urea nitrogen 9 mg/dL 7-18 Blood Urea Nitro gen CYNDI ([facility]) creatinine for GFR 1.15 mg/dL 0.55-1.30 Creatinine for GF R CYNDI ([facility]) glomerular filtration rate >60 Below low normal Mariza merular Filtration Rate CYNDI ([facility]) sodium level 143 mEq/L 136-145 Sodium Level CYNDI ([facility]) potassium serum 3.5 mEq/L 3.5-5.1 Potassium Serum ATHE NA ([facility]) chloride level 114 mEq/L 98-107 Above high normal Chloride Level [place] ([facility]) carbon dioxide level 20 mEq/L 21-32 Below low normal Carbon Di oxide Level [place] ([facility]) anion gap 9 mEq/L 8-16 Anion Gap [facility] ([facility]) calcium level 8.3 mg/dL 8.5-10.1 Below low normal Calcium Level AT [facility]) ID Date Data Source [id number] 12/12/2020 04:32:00 AM EST [facility]) Name Value Range Interpretation Code Description Data Claribel rce(s) Supporting Document(s) white blood count 4.7 10 4.0-10.0 White Blood Count [place] ([facility]) red blood count 3.44 10 4.00-5.40 Below low normal Red Blood Coun t [place] ([facility]) hemoglobin 9.9 g/dL 12.0-15.5 Below low normal Hemoglobin CYNDI ( [facility]) hematocrit 29.9 % 36.0-47.0 Below low normal Hematocrit [place] ( [facility]) mean corpuscular hemoglobin 28.8 pg 27.0-33.0 Mean Cor puscular Hemoglobin [place] ([facility]) mean corpuscular volume 86.9 fL 80.0-96.0 Mean Corpusc ular Volume [place] ([facility]) mean corpuscular HGB conc 33.1 g/dL 32.0-36.5 Mean Corpu scular HGB Conc [place] ([facility]) red cell distribution width 13.2 % 11.5-14.5 Red Cell Distribution Width CYNDI ([facility]) platelet count, automated 171 10 150-450 Platelet C ount, Automated CYNDI ([facility]) nucleated red blood cell % 0.0 % 0-0 Nucleated Red Blood Cell % [place] ([facility]) ID Date Data Source [id number] 12/12/2020 04:32:00 AM EST CYNDI ([facility]) Name Value Range Interpretation Code Description Data Claribel rce(s) Supporting Document(s) magnesium level 2.6 mg/dL 1.8-2.4 Above high normal Magnesium Lev el [facility]) ID Date Data Source [id number] 12/12/2020 04:32:00 AM EST [place] ([facility]) Name Value Range Interpretation Code Description Data Claribel rce(s) Supporting Document(s) phosphorus level 1.5 mg/dL 2.5-4.9 Below low normal Phosphorus Le karma [place] ([facility]) ID Date Data Source [id number] 12/12/2020 04:32:00 AM EST CYNDI ([facility]) Name Value Range Interpretation Code Description Data Claribel rce(s) Supporting Document(s) glucose, fasting 135 mg/dL 70-100 Above high normal Glucose, Fas ting [place] ([facility]) blood urea nitrogen 9 mg/dL 7-18 Blood Urea Nitro gen CYNDI ([facility]) creatinine for GFR 1.15 mg/dL 0.55-1.30 Creatinine for GF R [facility] ([facility]) glomerular filtration rate >60 Below low normal Mariza merular Filtration Rate [facility] ([facility]) sodium level 143 mEq/L 136-145 Sodium Level [facility] (No [facility]) potassium serum 3.5 mEq/L 3.5-5.1 Potassium Serum ATH NA ([facility]) chloride level 114 mEq/L 98-107 Above high normal Chloride Level [facility] ([facility]) anion gap 9 mEq/L 8-16 Anion Gap [facility] ([facility]) carbon dioxide level 20 mEq/L 21-32 Below low normal Carbon Di oxide Level [facility] ([facility]) calcium level 8.3 mg/dL 8.5-10.1 Below low normal Calcium Level AT [facility]) ID Date Data Source [id number] 12/12/2020 04:32:00 AM EST [facility] ([facility]) Name Value Range Interpretation Code Description Data Claribel rce(s) Supporting Document(s) white blood count 4.7 10 4.0-10.0 White Blood Count [facility] ([facility]) red blood count 3.44 10 4.00-5.40 Below low normal Red Blood Coun t [facility] ([facility]) hemoglobin 9.9 g/dL 12.0-15.5 Below low normal Hemoglobin [facility] ( [facility]) hematocrit 29.9 % 36.0-47.0 Below low normal Hematocrit [facility] ( [facility]) mean corpuscular volume 86.9 fL 80.0-96.0 Mean Corpusc ular Volume [facility] ([facility]) mean corpuscular HGB conc 33.1 g/dL 32.0-36.5 Mean Corpu scular HGB Conc [facility] ([facility]) mean corpuscular hemoglobin 28.8 pg 27.0-33.0 Mean Cor puscular Hemoglobin [facility] ([facility]) red cell distribution width 13.2 % 11.5-14.5 Red Cell Distribution Width [facility] ([facility]) platelet count, automated 171 10 150-450 Platelet C ount, Automated [facility] ([facility]) nucleated red blood cell % 0.0 % 0-0 Nucleated Red Blood Cell % [facility] ([facility]) ID Date Data Source [id number] 12/12/2020 04:32:00 AM EST [facility] ([facility]) Name Value Range Interpretation Code Description Data Claribel rce(s) Supporting Document(s) magnesium level 2.6 mg/dL 1.8-2.4 Above high normal Magnesium Lev el [facility] ([facility]) ID Date Data Source [id number] 12/12/2020 04:32:00 AM EST [facility] ([facility]) Name Value Range Interpretation Code Description Data Claribel rce(s) Supporting Document(s) phosphorus level 1.5 mg/dL 2.5-4.9 Below low normal Phosphorus Le karma [facility] ([facility]) ID Date Data Source [id number] 12/12/2020 04:32:00 AM EST [facility] ([facility]) Name Value Range Interpretation Code Description Data Claribel rce(s) Supporting Document(s) glucose, fasting 135 mg/dL 70-100 Above high normal Glucose, Fas ting [facility] ([facility]) blood urea nitrogen 9 mg/dL 7-18 Blood Urea Nitro gen [facility] ([facility]) creatinine for GFR 1.15 mg/dL 0.55-1.30 Creatinine for GF R [facility] ([facility]) glomerular filtration rate >60 Below low normal Mariza merular Filtration Rate [facility] ([facility]) sodium level 143 mEq/L 136-145 Sodium Level [facility] (No [facility]) potassium serum 3.5 mEq/L 3.5-5.1 Potassium Serum ATHE NA ([facility]) chloride level 114 mEq/L 98-107 Above high normal Chloride Level [facility] ([facility]) carbon dioxide level 20 mEq/L 21-32 Below low normal Carbon Di oxide Level [facility] ([facility]) anion gap 9 mEq/L 8-16 Anion Gap [facility] ([facility]) calcium level 8.3 mg/dL 8.5-10.1 Below low normal Calcium Level AT [facility]) ID Date Data Source [id number] 12/12/2020 04:32:00 AM EST [facility] ([facility]) Name Value Range Interpretation Code Description Data Claribel rce(s) Supporting Document(s) white blood count 4.7 10 4.0-10.0 White Blood Count [facility] ([facility]) red blood count 3.44 10 4.00-5.40 Below low normal Red Blood Coun t [facility] ([facility]) hemoglobin 9.9 g/dL 12.0-15.5 Below low normal Hemoglobin [facility] ( [facility]) hematocrit 29.9 % 36.0-47.0 Below low normal Hematocrit [facility] ( [facility]) mean corpuscular volume 86.9 fL 80.0-96.0 Mean Corpusc ular Volume [facility] ([facility]) mean corpuscular hemoglobin 28.8 pg 27.0-33.0 Mean Cor puscular Hemoglobin [facility] ([facility]) mean corpuscular HGB conc 33.1 g/dL 32.0-36.5 Mean Corpu scular HGB Conc [facility] ([facility]) platelet count, automated 171 10 150-450 Platelet C ount, Automated [facility] ([facility]) red cell distribution width 13.2 % 11.5-14.5 Red Cell Distribution Width [facility] ([facility]) nucleated red blood cell % 0.0 % 0-0 Nucleated Red Blood Cell % [facility] ([facility]) ID Date Data Source [id number] 12/12/2020 04:32:00 AM EST [facility] ([facility]) Name Value Range Interpretation Code Description Data Claribel rce(s) Supporting Document(s) magnesium level 2.6 mg/dL 1.8-2.4 Above high normal Magnesium Lev el [facility] ([facility]) ID Date Data Source [id number] 12/12/2020 04:32:00 AM EST [facility] ([facility]) Name Value Range Interpretation Code Description Data Claribel rce(s) Supporting Document(s) phosphorus level 1.5 mg/dL 2.5-4.9 Below low normal Phosphorus Le karma [facility] ([facility]) ID Date Data Source [id number] 12/12/2020 04:32:00 AM EST [facility] ([facility]) Name Value Range Interpretation Code Description Data Claribel rce(s) Supporting Document(s) glucose, fasting 135 mg/dL 70-100 Above high normal Glucose, Fas ting [facility] ([facility]) blood urea nitrogen 9 mg/dL 7-18 Blood Urea Nitro gen [facility] ([facility]) creatinine for GFR 1.15 mg/dL 0.55-1.30 Creatinine for GF R [facility] ([facility]) glomerular filtration rate >60 Below low normal Mariza merular Filtration Rate [facility] ([facility]) sodium level 143 mEq/L 136-145 Sodium Level [facility] ([facility]) potassium serum 3.5 mEq/L 3.5-5.1 Potassium Serum ATH NA [facility]) chloride level 114 mEq/L 98-107 Above high normal Chloride Level [facility] ([facility]) carbon dioxide level 20 mEq/L 21-32 Below low normal Carbon Di oxide Level [facility] ([facility]) anion gap 9 mEq/L 8-16 Anion Gap [facility] ([facility]) calcium level 8.3 mg/dL 8.5-10.1 Below low normal Calcium Level AT [facility]) ID Date Data Source [id number] 12/12/2020 04:32:00 AM EST [facility] ([facility]) Name Value Range Interpretation Code Description Data Claribel rce(s) Supporting Document(s) white blood count 4.7 10 4.0-10.0 White Blood Count [facility] ([facility]) red blood count 3.44 10 4.00-5.40 Below low normal Red Blood Coun t [facility] ([facility]) hematocrit 29.9 % 36.0-47.0 Below low normal Hematocrit [facility] ( [facility]) hemoglobin 9.9 g/dL 12.0-15.5 Below low normal Hemoglobin [facility] ( [facility]) mean corpuscular volume 86.9 fL 80.0-96.0 Mean Corpusc ular Volume [facility] ([facility]) mean corpuscular hemoglobin 28.8 pg 27.0-33.0 Mean Cor puscular Hemoglobin [facility] ([facility]) mean corpuscular HGB conc 33.1 g/dL 32.0-36.5 Mean Corpu scular HGB Conc [facility] ([facility]) red cell distribution width 13.2 % 11.5-14.5 Red Cell Distribution Width [facility] ([facility]) platelet count, automated 171 10 150-450 Platelet C ount, Automated [facility] ([facility]) nucleated red blood cell % 0.0 % 0-0 Nucleated Red Blood Cell % [facility] ([facility]) ID Date Data Source [id number] 12/12/2020 04:32:00 AM LE [facility] ([facility]) Name Value Range Interpretation Code Description Data Claribel rce(s) Supporting Document(s) magnesium level 2.6 mg/dL 1.8-2.4 Above high normal Magnesium Lev vasile [facility] ([facility]) ID Date Data Source [id number] 12/12/2020 04:32:00 AM EST [facility] ([facility]) Name Value Range Interpretation Code Description Data Claribel rce(s) Supporting Document(s) phosphorus level 1.5 mg/dL 2.5-4.9 Below low normal Phosphorus Le karma [facility] ([facility]) ID Date Data Source [id number] 12/12/2020 04:32:00 AM EST [facility] ([facility]) Name Value Range Interpretation Code Description Data Claribel rce(s) Supporting Document(s) blood urea nitrogen 9 mg/dL 7-18 Blood Urea Nitro gen [facility] ([facility]) glucose, fasting 135 mg/dL 70-100 Above high normal Glucose, Fas ting [facility] ([facility]) creatinine for GFR 1.15 mg/dL 0.55-1.30 Creatinine for GF R [facility] ([facility]) glomerular filtration rate >60 Below low normal Mariza merular Filtration Rate [facility] ([facility]) potassium serum 3.5 mEq/L 3.5-5.1 Potassium Serum ATHE NA ([facility]) sodium level 143 mEq/L 136-145 Sodium Level [facility] ([facility]) chloride level 114 mEq/L 98-107 Above high normal Chloride Level [facility] ([facility]) anion gap 9 mEq/L 8-16 Anion Gap [facility] ([facility]) carbon dioxide level 20 mEq/L 21-32 Below low normal Carbon Di oxide Level [facility] ([facility]) calcium level 8.3 mg/dL 8.5-10.1 Below low normal Calcium Level AT [facility]) ID Date Data Source [id number] 12/12/2020 04:32:00 AM EST [facility]) Name Value Range Interpretation Code Description Data Claribel rce(s) Supporting Document(s) white blood count 4.7 10 4.0-10.0 White Blood Count [facility] ([facility]) hemoglobin 9.9 g/dL 12.0-15.5 Below low normal Hemoglobin [facility] ( [facility]) red blood count 3.44 10 4.00-5.40 Below low normal Red Blood Coun t [facility] ([facility]) hematocrit 29.9 % 36.0-47.0 Below low normal Hematocrit [facility] ( [facility]) mean corpuscular hemoglobin 28.8 pg 27.0-33.0 Mean Cor puscular Hemoglobin [facility] ([facility]) mean corpuscular volume 86.9 fL 80.0-96.0 Mean Corpusc ular Volume [facility] ([facility]) mean corpuscular HGB conc 33.1 g/dL 32.0-36.5 Mean Corpu scular HGB Conc [facility] ([facility]) red cell distribution width 13.2 % 11.5-14.5 Red Cell Distribution Width [facility] ([facility]) platelet count, automated 171 10 150-450 Platelet C ount, Automated [facility] ([facility]) nucleated red blood cell % 0.0 % 0-0 Nucleated Red Blood Cell % [facility] ([facility]) ID Date Data Source [id number] 12/12/2020 04:32:00 AM EST [facility] ([facility]) Name Value Range Interpretation Code Description Data Claribel rce(s) Supporting Document(s) magnesium level 2.6 mg/dL 1.8-2.4 Above high normal Magnesium Lev el [facility] ([facility]) ID Date Data Source [id number] 12/12/2020 04:32:00 AM EST [facility] ([facility]) Name Value Range Interpretation Code Description Data Claribel rce(s) Supporting Document(s) phosphorus level 1.5 mg/dL 2.5-4.9 Below low normal Phosphorus Le karma [facility] ([facility]) ID Date Data Source [id number] 12/12/2020 04:32:00 AM EST [facility] ([facility]) Name Value Range Interpretation Code Description Data Claribel rce(s) Supporting Document(s) glucose, fasting 135 mg/dL 70-100 Above high normal Glucose, Fas ting [facility] ([facility]) blood urea nitrogen 9 mg/dL 7-18 Blood Urea Nitro gen [facility] ([facility]) creatinine for GFR 1.15 mg/dL 0.55-1.30 Creatinine for GF R [facility] ([facility]) sodium level 143 mEq/L 136-145 Sodium Level [facility] (No [facility]) glomerular filtration rate >60 Below low normal Mariza merular Filtration Rate [facility] ([facility]) potassium serum 3.5 mEq/L 3.5-5.1 Potassium Serum ATHE NA ([facility]) chloride level 114 mEq/L 98-107 Above high normal Chloride Level [facility] ([facility]) carbon dioxide level 20 mEq/L 21-32 Below low normal Carbon Di oxide Level [facility] ([facility]) anion gap 9 mEq/L 8-16 Anion Gap [facility] ([facility]) calcium level 8.3 mg/dL 8.5-10.1 Below low normal Calcium Level AT [facility] ([facility]) ID Date Data Source [id number] 12/12/2020 04:32:00 AM EST [facility] ([facility]) Name Value Range Interpretation Code Description Data Claribel rce(s) Supporting Document(s) white blood count 4.7 10 4.0-10.0 White Blood Count [facility] ([facility]) red blood count 3.44 10 4.00-5.40 Below low normal Red Blood Coun t [facility] ([facility]) hemoglobin 9.9 g/dL 12.0-15.5 Below low normal Hemoglobin [facility] ( [facility]) hematocrit 29.9 % 36.0-47.0 Below low normal Hematocrit [facility] ( [facility]) mean corpuscular volume 86.9 fL 80.0-96.0 Mean Corpusc ular Volume [facility] ([facility]) mean corpuscular hemoglobin 28.8 pg 27.0-33.0 Mean Cor puscular Hemoglobin [facility] ([facility]) mean corpuscular HGB conc 33.1 g/dL 32.0-36.5 Mean Corpu scular HGB Conc [facility] ([facility]) red cell distribution width 13.2 % 11.5-14.5 Red Cell Distribution Width [facility] ([facility]) platelet count, automated 171 10 150-450 Platelet C ount, Automated [facility] ([facility]) nucleated red blood cell % 0.0 % 0-0 Nucleated Red Blood Cell % [facility] ([facility]) ID Date Data Source [id number] 12/12/2020 04:24:00 AM EST [facility] ([facility]) Name Value Range Interpretation Code Description Data Claribel rce(s) Supporting Document(s) bedside glucose 133 mg/dL 70-105 Above high normal Bedside Gluco se [facility] ([facility]) ID Date Data Source [id number] 12/12/2020 04:24:00 AM EST [facility] ([facility]) Name Value Range Interpretation Code Description Data Claribel rce(s) Supporting Document(s) bedside glucose 133 mg/dL 70-105 Above high normal Bedside Gluco se [facility] ([facility]) ID Date Data Source [id number] 12/12/2020 04:24:00 AM EST [facility] ([facility]) Name Value Range Interpretation Code Description Data Claribel rce(s) Supporting Document(s) bedside glucose 133 mg/dL 70-105 Above high normal Bedside Gluco se [facility] ([facility]) ID Date Data Source [id number] 12/12/2020 04:24:00 AM EST [facility]) Name Value Range Interpretation Code Description Data Claribel rce(s) Supporting Document(s) bedside glucose 133 mg/dL 70-105 Above high normal Bedside Gluco se [facility] ([facility]) ID Date Data Source [id number] 12/12/2020 04:24:00 AM EST [facility]) Name Value Range Interpretation Code Description Data Claribel rce(s) Supporting Document(s) bedside glucose 133 mg/dL 70-105 Above high normal Bedside Gluco se [facility] ([facility]) ID Date Data Source [id number] 12/12/2020 04:24:00 AM EST [facility] ([facility]) Name Value Range Interpretation Code Description Data Claribel rce(s) Supporting Document(s) bedside glucose 133 mg/dL 70-105 Above high normal [facility] Date Data Source [id number] 12/12/2020 03:01:00 AM EST [facility]) Name Value Range Interpretation Code Description Data Claribel rce(s) Supporting Document(s) bedside glucose 153 mg/dL 70-105 Above high normal Bedside Gluco se [facility] ([facility]) ID Date Data Source [id number] 12/12/2020 03:01:00 AM EST [facility] ([facility]) Name Value Range Interpretation Code Description Data Claribel rce(s) Supporting Document(s) bedside glucose 153 mg/dL 70-105 Above high normal Bedside Gluco se [facility] ([facility]) ID Date Data Source [id number] 12/12/2020 03:01:00 AM EST [facility]) Name Value Range Interpretation Code Description Data Claribel rce(s) Supporting Document(s) bedside glucose 153 mg/dL 70-105 Above high normal Bedside Gluco se [facility]) ID Date Data Source [id number] 12/12/2020 03:01:00 AM EST [facility]) Name Value Range Interpretation Code Description Data Claribel rce(s) Supporting Document(s) bedside glucose 153 mg/dL 70-105 Above high normal Bedside Gluco se [facility]) ID Date Data Source [id number] 12/12/2020 03:01:00 AM EST [facility] ([facility]) Name Value Range Interpretation Code Description Data Claribel rce(s) Supporting Document(s) bedside glucose 153 mg/dL 70-105 Above high normal [facility] Date Data Source [id number] 12/12/2020 03:01:00 AM EST [facility]) Name Value Range Interpretation Code Description Data Claribel rce(s) Supporting Document(s) bedside glucose 153 mg/dL 70-105 Above high normal [facility] ID Date Data Source [id number] 12/12/2020 02:13:00 AM EST [facility] ([facility]) Name Value Range Interpretation Code Description Data Claribel rce(s) Supporting Document(s) bedside glucose 140 mg/dL 70-105 Above high normal Bedside Gluco se [facility] ([facility]) ID Date Data Source [id number] 12/12/2020 02:13:00 AM EST [facility] ([facility]) Name Value Range Interpretation Code Description Data Claribel rce(s) Supporting Document(s) bedside glucose 140 mg/dL 70-105 Above high normal Bedside Gluco se [facility] ([facility]) ID Date Data Source [id number] 12/12/2020 02:13:00 AM EST [facility] ([facility]) Name Value Range Interpretation Code Description Data Claribel rce(s) Supporting Document(s) bedside glucose 140 mg/dL 70-105 Above high normal Bedside Gluco se [facility] ([facility]) ID Date Data Source [id number] 12/12/2020 02:13:00 AM EST [facility] ([facility]) Name Value Range Interpretation Code Description Data Claribel rce(s) Supporting Document(s) bedside glucose 140 mg/dL 70-105 Above high normal Bedside Gluco se [facility] ([facility]) ID Date Data Source [id number] 12/12/2020 02:13:00 AM EST [facility] ([facility]) Name Value Range Interpretation Code Description Data Claribel rce(s) Supporting Document(s) bedside glucose 140 mg/dL 70-105 Above high normal Bedside Gluco se [facility] ([facility]) ID Date Data Source [id number] 12/12/2020 02:13:00 AM EST [facility] ([facility]) Name Value Range Interpretation Code Description Data Claribel rce(s) Supporting Document(s) bedside glucose 140 mg/dL 70-105 Above high normal Bedside Gluco se [facility] ([facility]) ID Date Data Source [id number] 12/12/2020 01:26:00 AM EST [facility] ([facility]) Name Value Range Interpretation Code Description Data Claribel rce(s) Supporting Document(s) bedside glucose 115 mg/dL 70-105 Above high normal Bedside Gluco se [facility] ([facility]) ID Date Data Source [id number] 12/12/2020 01:26:00 AM EST [facility] ([facility]) Name Value Range Interpretation Code Description Data Claribel rce(s) Supporting Document(s) bedside glucose 115 mg/dL 70-105 Above high normal Bedside Gluco se [facility]) ID Date Data Source [id number] 12/12/2020 01:26:00 AM EST [facility]) Name Value Range Interpretation Code Description Data Claribel rce(s) Supporting Document(s) bedside glucose 115 mg/dL 70-105 Above high normal Bedside Gluco se [facility]) ID Date Data Source [id number] 12/12/2020 01:26:00 AM EST [facility] ([facility]) Name Value Range Interpretation Code Description Data Claribel rce(s) Supporting Document(s) bedside glucose 115 mg/dL 70-105 Above high normal Bedside Gluco se [facility]) ID Date Data Source [id number] 12/12/2020 01:26:00 AM [facility] Name Value Range Interpretation Code Description Data Claribel rce(s) Supporting Document(s) bedside glucose 115 mg/dL 70-105 Above high normal Bedside Gluco se [facility]NDI ([facility]) ID Date Data Source [id number] 12/12/2020 01:26:00 AM EST CYND[facility] ([facility]) Name Value Range Interpretation Code Description Data Claribel rce(s) Supporting Document(s) bedside glucose 115 mg/dL 70-105 Above high normal Bedside Gluco se [facility] ([facility]) ID Date Data Source [id number] 12/12/2020 12:21:00 AM EST [facility] ([facility]) Name Value Range Interpretation Code Description Data Claribel rce(s) Supporting Document(s) bedside glucose 130 mg/dL 70-105 Above high normal Bedside Gluco se CYNDI ([facility]) ID Date Data Source [id number] 12/12/2020 12:21:00 AM EST CYND[facility] ([facility]) Name Value Range Interpretation Code Description Data Claribel rce(s) Supporting Document(s) bedside glucose 130 mg/dL 70-105 Above high normal Bedside Gluco se CYNDI ([facility]) ID Date Data Source [id number] 12/12/2020 12:21:00 AM EST CYND[facility] ([facility]) Name Value Range Interpretation Code Description Data Claribel rce(s) Supporting Document(s) bedside glucose 130 mg/dL 70-105 Above high normal Bedside Gluco se [facility] ([facility]) ID Date Data Source [id number] 12/12/2020 12:21:00 AM EST CYND[facility] ([facility]) Name Value Range Interpretation Code Description Data Claribel rce(s) Supporting Document(s) bedside glucose 130 mg/dL 70-105 Above high normal Bedside Gluco se [facility]NDI ([facility]) ID Date Data Source [id number] 12/12/2020 12:21:00 AM EST CYND[facility] ([facility]) Name Value Range Interpretation Code Description Data Claribel rce(s) Supporting Document(s) bedside glucose 130 mg/dL 70-105 Above high normal Bedside Gluco se HANNA ([facility]) ID Date Data Source [id number] 12/12/2020 12:21:00 AM EST CYND[facility] ([facility]) Name Value Range Interpretation Code Description Data Claribel rce(s) Supporting Document(s) bedside glucose 130 mg/dL 70-105 Above high normal Bedside Gluco se HANNA ([facility]) ID Date Data Source [id number] 12/12/2020 12:15:00 AM LE HANNA ([facility]) Name Value Range Interpretation Code Description Data Claribel rce(s) Supporting Document(s) phosphorus level 2.3 mg/dL 2.5-4.9 Below low normal Phosphorus Le karma HENRIQUEZENA ([facility]) ID Date Data Source [id number] 12/12/2020 12:15:00 AM LE [facility]ANNA ([facility]) Name Value Range Interpretation Code Description Data Claribel rce(s) Supporting Document(s) magnesium level 2.9 mg/dL 1.8-2.4 Above high normal Magnesium Lev vasile HAN[facility]) ID Date Data Source [id number] 12/12/2020 12:15:00 AM EST CYND[facility] ([facility]) Name Value Range Interpretation Code Description Data Claribel rce(s) Supporting Document(s) phosphorus level 2.3 mg/dL 2.5-4.9 Below low normal Phosphorus Le karma [facility] ([facility]) ID Date Data Source [id number] 12/12/2020 12:15:00 AM EST [facility]) Name Value Range Interpretation Code Description Data Claribel rce(s) Supporting Document(s) glucose, fasting 146 mg/dL 70-100 Above high normal Glucose, Fas ting [facility] ([facility]) blood urea nitrogen 12 mg/dL 7-18 Blood Urea Nitro gen [facility] ([facility]) creatinine for GFR 1.02 mg/dL 0.55-1.30 Creatinine for GF R [facility] ([facility]) glomerular filtration rate > 60.0 >60 Glomerula r Filtration Rate [facility] ([facility]) potassium serum 3.4 mEq/L 3.5-5.1 Below low normal Potassium Seru m [facility] ([facility]) sodium level 141 mEq/L 136-145 Sodium Level [facility] ([facility]) chloride level 113 mEq/L 98-107 Above high normal Chloride Level [facility] ([facility]) carbon dioxide level 19 mEq/L 21-32 Below low normal Carbon Di oxide Level [facility] ([facility]) anion gap 9 mEq/L 8-16 Anion Gap [facility] ([facility]) calcium level 8.5 mg/dL 8.5-10.1 Calcium Level [facility] ( [facility]) ID Date Data Source [id number] 12/12/2020 12:15:00 AM EST [facility]) Name Value Range Interpretation Code Description Data Claribel rce(s) Supporting Document(s) phosphorus level 2.3 mg/dL 2.5-4.9 Below low normal Phosphorus Le karma [facility] ([facility]) ID Date Data Source [id number] 12/12/2020 12:15:00 AM EST [place] ([facility]) Name Value Range Interpretation Code Description Data Claribel rce(s) Supporting Document(s) magnesium level 2.9 mg/dL 1.8-2.4 Above high normal Magnesium Lev el [facility]) ID Date Data Source [id number] 12/12/2020 12:15:00 AM [facility] Name Value Range Interpretation Code Description Data Claribel rce(s) Supporting Document(s) phosphorus level 2.3 mg/dL 2.5-4.9 Below low normal Phosphorus Le karma [facility] ([facility]) ID Date Data Source [id number] 12/12/2020 12:15:00 AM EST [facility] ([facility]) Name Value Range Interpretation Code Description Data Claribel rce(s) Supporting Document(s) glucose, fasting 146 mg/dL 70-100 Above high normal Glucose, Fas ting [facility] ([facility]) blood urea nitrogen 12 mg/dL 7-18 Blood Urea Nitro gen [facility] ([facility]) creatinine for GFR 1.02 mg/dL 0.55-1.30 Creatinine for GF R [facility] ([facility]) glomerular filtration rate > 60.0 >60 Glomerula r Filtration Rate [facility] ([facility]) sodium level 141 mEq/L 136-145 Sodium Level [facility] ([facility]) potassium serum 3.4 mEq/L 3.5-5.1 Below low normal Potassium Seru m [facility] ([facility]) chloride level 113 mEq/L 98-107 Above high normal Chloride Level [facility] ([facility]) carbon dioxide level 19 mEq/L 21-32 Below low normal Carbon Di oxide Level [facility] ([facility]) anion gap 9 mEq/L 8-16 Anion Gap [facility] ([facility]) calcium level 8.5 mg/dL 8.5-10.1 Calcium Level [facility]NDI ( [facility]) ID Date Data Source [id number] 12/12/2020 12:15:00 AM EST [facility] ([facility]) Name Value Range Interpretation Code Description Data Claribel rce(s) Supporting Document(s) phosphorus level 2.3 mg/dL 2.5-4.9 Below low normal Phosphorus Le karma [facility] ([facility]) ID Date Data Source [id number] 12/12/2020 12:15:00 AM EST [facility] ([facility]) Name Value Range Interpretation Code Description Data Claribel rce(s) Supporting Document(s) magnesium level 2.9 mg/dL 1.8-2.4 Above high normal Magnesium Lev el [facility] ([facility]) ID Date Data Source [id number] 12/12/2020 12:15:00 AM EST [facility] ([facility]) Name Value Range Interpretation Code Description Data Claribel rce(s) Supporting Document(s) phosphorus level 2.3 mg/dL 2.5-4.9 Below low normal Phosphorus Le karma [facility] ([facility]) ID Date Data Source [id number] 12/12/2020 12:15:00 AM EST [facility] ([facility]) Name Value Range Interpretation Code Description Data Claribel rce(s) Supporting Document(s) glucose, fasting 146 mg/dL 70-100 Above high normal Glucose, Fas ting [facility] ([facility]) creatinine for GFR 1.02 mg/dL 0.55-1.30 Creatinine for GF R [facility] ([facility]) blood urea nitrogen 12 mg/dL 7-18 Blood Urea Nitro gen [facility] ([facility]) glomerular filtration rate > 60.0 >60 Glomerula r Filtration Rate [facility] ([facility]) sodium level 141 mEq/L 136-145 Sodium Level [facility]I ([facility]) potassium serum 3.4 mEq/L 3.5-5.1 Below low normal Potassium Seru m [facility] ([facility]) chloride level 113 mEq/L 98-107 Above high normal Chloride Level [facility] ([facility]) anion gap 9 mEq/L 8-16 Anion Gap [facility] ([facility]) carbon dioxide level 19 mEq/L 21-32 Below low normal Carbon Di oxide Level [facility] ([facility]) calcium level 8.5 mg/dL 8.5-10.1 Calcium Level [facility] ( [facility]) ID Date Data Source [id number] 12/12/2020 12:15:00 AM EST [facility] ([facility]) Name Value Range Interpretation Code Description Data Claribel rce(s) Supporting Document(s) glucose, fasting 146 mg/dL 70-100 Above high normal Glucose, Fas ting [facility] ([facility]) blood urea nitrogen 12 mg/dL 7-18 Blood Urea Nitro gen [facility] ([facility]) creatinine for GFR 1.02 mg/dL 0.55-1.30 Creatinine for GF R [facility] ([facility]) glomerular filtration rate > 60.0 >60 Glomerula r Filtration Rate [facility] ([facility]) sodium level 141 mEq/L 136-145 Sodium Level [facility] ([facility]) potassium serum 3.4 mEq/L 3.5-5.1 Below low normal Potassium Seru m [facility] ([facility]) chloride level 113 mEq/L 98-107 Above high normal Chloride Level [facility] ([facility]) carbon dioxide level 19 mEq/L 21-32 Below low normal Carbon Di oxide Level [facility] ([facility]) anion gap 9 mEq/L 8-16 Anion Gap [facility] ([facility]) calcium level 8.5 mg/dL 8.5-10.1 Calcium Level [facility] ( [facility]) ID Date Data Source [id number] 12/12/2020 12:15:00 AM EST [facility]NDI ([facility]) Name Value Range Interpretation Code Description Data Claribel rce(s) Supporting Document(s) phosphorus level 2.3 mg/dL 2.5-4.9 Below low normal Phosphorus Le karma [facility] ([facility]) ID Date Data Source [id number] 12/12/2020 12:15:00 AM EST [facility] ([facility]) Name Value Range Interpretation Code Description Data Claribel rce(s) Supporting Document(s) magnesium level 2.9 mg/dL 1.8-2.4 Above high normal Magnesium Lev el [facility]I ([facility]) ID Date Data Source [id number] 12/12/2020 12:15:00 AM EST YCNDI ([facility]) Name Value Range Interpretation Code Description Data Claribel rce(s) Supporting Document(s) phosphorus level 2.3 mg/dL 2.5-4.9 Below low normal Phosphorus Le karma [facility] ([facility]) ID Date Data Source [id number] 12/12/2020 12:15:00 AM EST [facility] ([facility]) Name Value Range Interpretation Code Description Data Claribel rce(s) Supporting Document(s) glucose, fasting 146 mg/dL 70-100 Above high normal Glucose, Fas ting [facility] ([facility]) blood urea nitrogen 12 mg/dL 7-18 Blood Urea Nitro gen [facility] ([facility]) creatinine for GFR 1.02 mg/dL 0.55-1.30 Creatinine for GF R [facility] ([facility]) glomerular filtration rate > 60.0 >60 Glomerula r Filtration Rate [facility] ([facility]) sodium level 141 mEq/L 136-145 Sodium Level [facility] ([facility]) potassium serum 3.4 mEq/L 3.5-5.1 Below low normal Potassium Seru m [facility] ([facility]) chloride level 113 mEq/L 98-107 Above high normal Chloride Level [facility] ([facility]) carbon dioxide level 19 mEq/L 21-32 Below low normal Carbon Di oxide Level [facility] ([facility]) anion gap 9 mEq/L 8-16 Anion Gap [facility] ([facility]) calcium level 8.5 mg/dL 8.5-10.1 Calcium Level [facility]NDI ( [facility]) ID Date Data Source [id number] 12/12/2020 12:15:00 AM EST [facility] ([facility]) Name Value Range Interpretation Code Description Data Claribel rce(s) Supporting Document(s) phosphorus level 2.3 mg/dL 2.5-4.9 Below low normal Phosphorus Le karma [facility] ([facility]) ID Date Data Source [id number] 12/12/2020 12:15:00 AM EST [facility] ([facility]) Name Value Range Interpretation Code Description Data Claribel rce(s) Supporting Document(s) magnesium level 2.9 mg/dL 1.8-2.4 Above high normal Magnesium Lev vasile [facility] ([facility]) ID Date Data Source [id number] 12/12/2020 12:15:00 AM EST [facility] ([facility]) Name Value Range Interpretation Code Description Data Claribel rce(s) Supporting Document(s) phosphorus level 2.3 mg/dL 2.5-4.9 Below low normal Phosphorus Le karma [facility] ([facility]) ID Date Data Source [id number] 12/12/2020 12:15:00 AM EST [facility]ND[facility] ([facility]) Name Value Range Interpretation Code Description Data Claribel rce(s) Supporting Document(s) glucose, fasting 146 mg/dL 70-100 Above high normal Glucose, Fas ting [facility] ([facility]) blood urea nitrogen 12 mg/dL 7-18 Blood Urea Nitro gen [facility] ([facility]) creatinine for GFR 1.02 mg/dL 0.55-1.30 Creatinine for GF R [facility] ([facility]) glomerular filtration rate > 60.0 >60 Glomerula r Filtration Rate [facility]I ([facility]) sodium level 141 mEq/L 136-145 Sodium Level [facility]I ([facility]) potassium serum 3.4 mEq/L 3.5-5.1 Below low normal Potassium Seru m [facility] ([facility]) chloride level 113 mEq/L 98-107 Above high normal Chloride Level [facility] ([facility]) carbon dioxide level 19 mEq/L 21-32 Below low normal Carbon Di oxide Level [facility] ([facility]) anion gap 9 mEq/L 8-16 Anion Gap [facility] ([facility]) calcium level 8.5 mg/dL 8.5-10.1 Calcium Level [facility] ( [facility]) ID Date Data Source [id number] 12/12/2020 12:15:00 AM EST [facility] ([facility]) Name Value Range Interpretation Code Description Data Claribel rce(s) Supporting Document(s) phosphorus level 2.3 mg/dL 2.5-4.9 Below low normal Phosphorus Le karma [facility]ANNA ([facility]) ID Date Data Source [id number] 12/12/2020 12:15:00 AM EST [facility] ([facility]) Name Value Range Interpretation Code Description Data Claribel rce(s) Supporting Document(s) magnesium level 2.9 mg/dL 1.8-2.4 Above high normal Magnesium Lev el [facility] ([facility]) ID Date Data Source [id number] 12/12/2020 12:15:00 AM EST [facility] ([facility]) Name Value Range Interpretation Code Description Data Claribel rce(s) Supporting Document(s) phosphorus level 2.3 mg/dL 2.5-4.9 Below low normal Phosphorus Le karma [facility]ANNA ([facility]) ID Date Data Source [id number] 12/11/2020 11:18:00 PM EST [facility]I ([facility]) Name Value Range Interpretation Code Description Data Claribel rce(s) Supporting Document(s) bedside glucose 142 mg/dL 70-105 Above high normal Bedside Gluco se [facility] ([facility]) ID Date Data Source [id number] 12/11/2020 11:18:00 PM EST [facility] ([facility]) Name Value Range Interpretation Code Description Data Claribel rce(s) Supporting Document(s) bedside glucose 142 mg/dL 70-105 Above high normal Bedside Gluco se [facility]I ([facility]) ID Date Data Source [id number] 12/11/2020 11:18:00 PM EST [facility] ([facility]) Name Value Range Interpretation Code Description Data Claribel rce(s) Supporting Document(s) bedside glucose 142 mg/dL 70-105 Above high normal Bedside Gluco se [facility] ([facility]) ID Date Data Source [id number] 12/11/2020 11:18:00 PM EST [facility] ([facility]) Name Value Range Interpretation Code Description Data Claribel rce(s) Supporting Document(s) bedside glucose 142 mg/dL 70-105 Above high normal [facility] Date Data Source [id number] 12/11/2020 11:18:00 PM EST [facility] ([facility]) Name Value Range Interpretation Code Description Data Claribel rce(s) Supporting Document(s) bedside glucose 142 mg/dL 70-105 Above high normal [facility]side [facility] ID Date Data Source [id number] 12/11/2020 11:18:00 PM EST [facility] ([facility]) Name Value Range Interpretation Code Description Data Claribel rce(s) Supporting Document(s) bedside glucose 142 mg/dL 70-105 Above high normal [facility]side [facility] ID Date Data Source [id number] 12/11/2020 10:21:00 PM EST [facility] ([facility]) Name Value Range Interpretation Code Description Data Claribel rce(s) Supporting Document(s) bedside glucose 135 mg/dL 70-105 Above high normal [facility]side [facility] ID Date Data Source [id number] 12/11/2020 10:21:00 PM EST [facility] Name Value Range Interpretation Code Description Data Claribel rce(s) Supporting Document(s) bedside glucose 135 mg/dL 70-105 Above high normal Bedside Gluco se [facility] ([facility]) ID Date Data Source [id number] 12/11/2020 10:21:00 PM EST [facility] ([facility]) Name Value Range Interpretation Code Description Data Claribel rce(s) Supporting Document(s) bedside glucose 135 mg/dL 70-105 Above high normal Bedside Gluco se [facility] ([facility]) ID Date Data Source [id number] 12/11/2020 10:21:00 PM EST [facility] ([facility]) Name Value Range Interpretation Code Description Data Claribel rce(s) Supporting Document(s) bedside glucose 135 mg/dL 70-105 Above high normal Bedside Gluco se [facility] ([facility]) ID Date Data Source [id number] 12/11/2020 10:21:00 PM EST [facility] ([facility]) Name Value Range Interpretation Code Description Data Claribel rce(s) Supporting Document(s) bedside glucose 135 mg/dL 70-105 Above high normal Bedside Gluco se [facility] ([facility]) ID Date Data Source [id number] 12/11/2020 10:21:00 PM EST [facility] ([facility]) Name Value Range Interpretation Code Description Data Claribel rce(s) Supporting Document(s) bedside glucose 135 mg/dL 70-105 Above high normal Bedside Gluco se [facility] ([facility]) ID Date Data Source [id number] 12/11/2020 09:17:00 PM [facility] Name Value Range Interpretation Code Description Data Claribel rce(s) Supporting Document(s) bedside glucose 146 mg/dL 70-105 Above high normal [facility]side [facility] ID Date Data Source [id number] 12/11/2020 09:17:00 PM EST [facility] ([facility]) Name Value Range Interpretation Code Description Data Claribel rce(s) Supporting Document(s) bedside glucose 146 mg/dL 70-105 Above high normal Bedside Gluco se [facility] ([facility]) ID Date Data Source [id number] 12/11/2020 09:17:00 PM EST [facility] ([facility]) Name Value Range Interpretation Code Description Data Claribel rce(s) Supporting Document(s) bedside glucose 146 mg/dL 70-105 Above high normal Bedside Gluco se [facility] ([facility]) ID Date Data Source [id number] 12/11/2020 09:17:00 PM EST [facility] ([facility]) Name Value Range Interpretation Code Description Data Claribel rce(s) Supporting Document(s) bedside glucose 146 mg/dL 70-105 Above high normal Bedside Gluco se [facility] ([facility]) ID Date Data Source [id number] 12/11/2020 09:17:00 PM EST [facility] ([facility]) Name Value Range Interpretation Code Description Data Claribel rce(s) Supporting Document(s) bedside glucose 146 mg/dL 70-105 Above high normal Bedside Gluco se [facility] ([facility]) ID Date Data Source [id number] 12/11/2020 09:17:00 PM EST [facility] ([facility]) Name Value Range Interpretation Code Description Data Claribel rce(s) Supporting Document(s) bedside glucose 146 mg/dL 70-105 Above high normal [facility]side [facility] ID Date Data Source [id number] 12/11/2020 08:14:00 PM EST [facility] ([facility]) Name Value Range Interpretation Code Description Data Claribel rce(s) Supporting Document(s) bedside glucose 163 mg/dL 70-105 Above high normal Bedside Gluco se [facility] ([facility]) ID Date Data Source [id number] 12/11/2020 08:14:00 PM EST [facility] ([facility]) Name Value Range Interpretation Code Description Data Claribel rce(s) Supporting Document(s) bedside glucose 163 mg/dL 70-105 Above high normal Bedside Gluco se [facility] ([facility]) ID Date Data Source [id number] 12/11/2020 08:14:00 [facility] Name Value Range Interpretation Code Description Data Claribel rce(s) Supporting Document(s) bedside glucose 163 mg/dL 70-105 Above high normal Bedside Gluco se [facility]) ID Date Data Source [id number] 12/11/2020 08:14:00 PM EST [facility]) Name Value Range Interpretation Code Description Data Claribel rce(s) Supporting Document(s) bedside glucose 163 mg/dL 70-105 Above high normal Bedside [facility] ID Date Data Source [id number] 12/11/2020 08:14:00 PM EST [facility] ([facility]) Name Value Range Interpretation Code Description Data Claribel rce(s) Supporting Document(s) bedside glucose 163 mg/dL 70-105 Above high normal [facility] ID Date Data Source [id number] 12/11/2020 08:14:00 PM [facility] Name Value Range Interpretation Code Description Data Claribel rce(s) Supporting Document(s) bedside glucose 163 mg/dL 70-105 Above high normal [facility]side [facility] ID Date Data Source [id number] 12/11/2020 08:05:00 PM EST [facility] ([facility]) Name Value Range Interpretation Code Description Data Claribel rce(s) Supporting Document(s) magnesium level 1.6 mg/dL 1.8-2.4 Below low normal Magnesium Mona l [facility] ([facility]) ID Date Data Source [id number] 12/11/2020 08:05:00 PM EST [facility] ([facility]) Name Value Range Interpretation Code Description Data Claribel rce(s) Supporting Document(s) phosphorus level 1.8 mg/dL 2.5-4.9 Below low normal Phosphorus Le karma [facility] ([facility]) ID Date Data Source [id number] 12/11/2020 08:05:00 PM EST [facility] ([facility]) Name Value Range Interpretation Code Description Data Claribel rce(s) Supporting Document(s) glucose, fasting 162 mg/dL 70-100 Above high normal Glucose, Fas ting [facility] ([facility]) blood urea nitrogen 14 mg/dL 7-18 Blood Urea Nitro gen [facility] ([facility]) creatinine for GFR 1.21 mg/dL 0.55-1.30 Creatinine for GF R [facility] ([facility]) glomerular filtration rate >60 Below low normal Mariza merular Filtration Rate [facility] ([facility]) sodium level 142 mEq/L 136-145 Sodium Level [facility] ([facility]) chloride level 114 mEq/L 98-107 Above high normal Chloride Level [facility] ([facility]) potassium serum 3.6 mEq/L 3.5-5.1 Potassium Serum ATHE NA ([facility]) carbon dioxide level 19 mEq/L 21-32 Below low normal Carbon Di oxide Level [facility] ([facility]) anion gap 9 mEq/L 8-16 Anion Gap [facility] ([facility]) calcium level 8.7 mg/dL 8.5-10.1 Calcium Level [facility] ( [facility]) ID Date Data Source [id number] 12/11/2020 08:05:00 PM EST [facility] ([facility]) Name Value Range Interpretation Code Description Data Claribel rce(s) Supporting Document(s) magnesium level 1.6 mg/dL 1.8-2.4 Below low normal Magnesium Leve l [facility] ([facility]) ID Date Data Source [id number] 12/11/2020 08:05:00 PM EST [facility] ([facility]) Name Value Range Interpretation Code Description Data Claribel rce(s) Supporting Document(s) phosphorus level 1.8 mg/dL 2.5-4.9 Below low normal Phosphorus Le karma [facility] ([facility]) ID Date Data Source [id number] 12/11/2020 08:05:00 PM EST [facility] ([facility]) Name Value Range Interpretation Code Description Data Claribel rce(s) Supporting Document(s) glucose, fasting 162 mg/dL 70-100 Above high normal Glucose, Fas ting [facility] ([facility]) blood urea nitrogen 14 mg/dL 7-18 Blood Urea Nitro gen [facility] ([facility]) glomerular filtration rate >60 Below low normal Mariza merular Filtration Rate [facility] ([facility]) creatinine for GFR 1.21 mg/dL 0.55-1.30 Creatinine for GF R [facility] ([facility]) chloride level 114 mEq/L 98-107 Above high normal Chloride Level [facility] ([facility]) potassium serum 3.6 mEq/L 3.5-5.1 Potassium Serum ATHE NA ([facility]) sodium level 142 mEq/L 136-145 Sodium Level [facility] ([facility]) carbon dioxide level 19 mEq/L 21-32 Below low normal Carbon Di oxide Level [facility] ([facility]) anion gap 9 mEq/L 8-16 Anion Gap [facility] ([facility]) calcium level 8.7 mg/dL 8.5-10.1 Calcium Level [facility] ( [facility]) ID Date Data Source [id number] 12/11/2020 08:05:00 PM EST [facility] ([facility]) Name Value Range Interpretation Code Description Data Claribel rce(s) Supporting Document(s) magnesium level 1.6 mg/dL 1.8-2.4 Below low normal Magnesium Leve l [facility] ([facility]) ID Date Data Source [id number] 12/11/2020 08:05:00 PM EST [facility] ([facility]) Name Value Range Interpretation Code Description Data Claribel rce(s) Supporting Document(s) phosphorus level 1.8 mg/dL 2.5-4.9 Below low normal Phosphorus Le karma [facility] ([facility]) ID Date Data Source [id number] 12/11/2020 08:05:00 PM EST [facility] ([facility]) Name Value Range Interpretation Code Description Data Claribel rce(s) Supporting Document(s) blood urea nitrogen 14 mg/dL 7-18 Blood Urea Nitro gen [facility] ([facility]) glucose, fasting 162 mg/dL 70-100 Above high normal Glucose, Fas ting [facility] ([facility]) creatinine for GFR 1.21 mg/dL 0.55-1.30 Creatinine for GF R [facility] ([facility]) glomerular filtration rate >60 Below low normal Mariza merular Filtration Rate [facility] ([facility]) sodium level 142 mEq/L 136-145 Sodium Level [facility] ([facility]) potassium serum 3.6 mEq/L 3.5-5.1 Potassium Serum ATHE NA ([facility]) chloride level 114 mEq/L 98-107 Above high normal Chloride Level [facility] ([facility]) carbon dioxide level 19 mEq/L 21-32 Below low normal Carbon Di oxide Level [facility] ([facility]) calcium level 8.7 mg/dL 8.5-10.1 Calcium Level [facility] ( [facility]) anion gap 9 mEq/L 8-16 Anion Gap [facility] ([facility]) ID Date Data Source [id number] 12/11/2020 08:05:00 PM EST [facility] ([facility]) Name Value Range Interpretation Code Description Data Claribel rce(s) Supporting Document(s) magnesium level 1.6 mg/dL 1.8-2.4 Below low normal Magnesium Leve l [facility] ([facility]) ID Date Data Source [id number] 12/11/2020 08:05:00 PM EST [facility] ([facility]) Name Value Range Interpretation Code Description Data Claribel rce(s) Supporting Document(s) phosphorus level 1.8 mg/dL 2.5-4.9 Below low normal Phosphorus Le karma [facility] ([facility]) ID Date Data Source [id number] 12/11/2020 08:05:00 PM EST [facility] ([facility]) Name Value Range Interpretation Code Description Data Claribel rce(s) Supporting Document(s) glucose, fasting 162 mg/dL 70-100 Above high normal Glucose, Fas ting [facility] ([facility]) creatinine for GFR 1.21 mg/dL 0.55-1.30 Creatinine for GF R [facility] ([facility]) blood urea nitrogen 14 mg/dL 7-18 Blood Urea Nitro gen [facility] ([facility]) potassium serum 3.6 mEq/L 3.5-5.1 Potassium Serum ATHE NA ([facility]) glomerular filtration rate >60 Below low normal Mariza merular Filtration Rate [facility] ([facility]) sodium level 142 mEq/L 136-145 Sodium Level [facility] ([facility]) carbon dioxide level 19 mEq/L 21-32 Below low normal Carbon Di oxide Level [facility] ([facility]) chloride level 114 mEq/L 98-107 Above high normal Chloride Level [facility] ([facility]) anion gap 9 mEq/L 8-16 Anion Gap [facility] ([facility]) calcium level 8.7 mg/dL 8.5-10.1 Calcium Level [facility] ( [facility]) ID Date Data Source [id number] 12/11/2020 08:05:00 PM EST [facility] ([facility]) Name Value Range Interpretation Code Description Data Claribel rce(s) Supporting Document(s) magnesium level 1.6 mg/dL 1.8-2.4 Below low normal Magnesium Leve l [facility] ([facility]) ID Date Data Source [id number] 12/11/2020 08:05:00 PM EST [facility] ([facility]) Name Value Range Interpretation Code Description Data Claribel rce(s) Supporting Document(s) phosphorus level 1.8 mg/dL 2.5-4.9 Below low normal Phosphorus Le karma [facility] ([facility]) ID Date Data Source [id number] 12/11/2020 08:05:00 PM EST [facility] ([facility]) Name Value Range Interpretation Code Description Data Claribel rce(s) Supporting Document(s) glucose, fasting 162 mg/dL 70-100 Above high normal Glucose, Fas ting [facility] ([facility]) blood urea nitrogen 14 mg/dL 7-18 Blood Urea Nitro gen [facility] ([facility]) glomerular filtration rate >60 Below low normal Mariaz merular Filtration Rate [facility] ([facility]) creatinine for GFR 1.21 mg/dL 0.55-1.30 Creatinine for GF R [facility] ([facility]) potassium serum 3.6 mEq/L 3.5-5.1 Potassium Serum ATHE NA ([facility]) sodium level 142 mEq/L 136-145 Sodium Level [facility] ([facility]) chloride level 114 mEq/L 98-107 Above high normal Chloride Level [facility] ([facility]) anion gap 9 mEq/L 8-16 Anion Gap [facility] ([facility]) carbon dioxide level 19 mEq/L 21-32 Below low normal Carbon Di oxide Level [facility] ([facility]) calcium level 8.7 mg/dL 8.5-10.1 Calcium Level [facility] ( [facility]) ID Date Data Source [id number] 12/11/2020 08:05:00 PM EST [facility] ([facility]) Name Value Range Interpretation Code Description Data Claribel rce(s) Supporting Document(s) magnesium level 1.6 mg/dL 1.8-2.4 Below low normal Magnesium Leve l [facility] ([facility]) ID Date Data Source [id number] 12/11/2020 08:05:00 PM EST [facility] ([facility]) Name Value Range Interpretation Code Description Data Claribel rce(s) Supporting Document(s) phosphorus level 1.8 mg/dL 2.5-4.9 Below low normal Phosphorus Le karma [facility] ([facility]) ID Date Data Source [id number] 12/11/2020 08:05:00 PM EST [facility] ([facility]) Name Value Range Interpretation Code Description Data Claribel rce(s) Supporting Document(s) blood urea nitrogen 14 mg/dL 7-18 Blood Urea Nitro gen [facility] ([facility]) glucose, fasting 162 mg/dL 70-100 Above high normal Glucose, Fas ting [facility] ([facility]) glomerular filtration rate >60 Below low normal Mariza merular Filtration Rate [facility] ([facility]) creatinine for GFR 1.21 mg/dL 0.55-1.30 Creatinine for GF R [facility] ([facility]) sodium level 142 mEq/L 136-145 Sodium Level [facility] ([facility]) potassium serum 3.6 mEq/L 3.5-5.1 Potassium Serum ATHE NA ([facility]) chloride level 114 mEq/L 98-107 Above high normal Chloride Level [facility] ([facility]) anion gap 9 mEq/L 8-16 Anion Gap [facility] ([facility]) carbon dioxide level 19 mEq/L 21-32 Below low normal Carbon Di oxide Level [facility] ([facility]) calcium level 8.7 mg/dL 8.5-10.1 Calcium Level [facility] ( [facility]) ID Date Data Source [id number] 12/11/2020 07:18:00 PM EST [facility] ([facility]) Name Value Range Interpretation Code Description Data Claribel rce(s) Supporting Document(s) bedside glucose 160 mg/dL 70-105 Above high normal Bedside Gluco se [facility] ([facility]) ID Date Data Source [id number] 12/11/2020 07:18:00 PM EST [facility] ([facility]) Name Value Range Interpretation Code Description Data Claribel rce(s) Supporting Document(s) bedside glucose 160 mg/dL 70-105 Above high normal Bedside Gluco se [facility]) ID Date Data Source [id number] 12/11/2020 07:18:00 PM EST [facility]) Name Value Range Interpretation Code Description Data Claribel rce(s) Supporting Document(s) bedside glucose 160 mg/dL 70-105 Above high normal Bedside Gluco se [facility]) ID Date Data Source [id number] 12/11/2020 07:18:00 PM EST [facility] ([facility]) Name Value Range Interpretation Code Description Data Claribel rce(s) Supporting Document(s) bedside glucose 160 mg/dL 70-105 Above high normal Bedside Gluco se [facility]) ID Date Data Source [id number] 12/11/2020 07:18:00 PM [facility] Name Value Range Interpretation Code Description Data Claribel rce(s) Supporting Document(s) bedside glucose 160 mg/dL 70-105 Above high normal Bedside [facility]uco se [facility] ID Date Data Source [id number] 12/11/2020 07:18:00 PM EST [facility] ([facility]) Name Value Range Interpretation Code Description Data Claribel rce(s) Supporting Document(s) bedside glucose 160 mg/dL 70-105 Above high normal Bedside Gluco se [facility] ([facility]) ID Date Data Source [id number] 12/11/2020 06:13:00 PM EST [facility] ([facility]) Name Value Range Interpretation Code Description Data Claribel rce(s) Supporting Document(s) bedside glucose 187 mg/dL 70-105 Above high normal Bedside Gluco se [facility] ([facility]) ID Date Data Source [id number] 12/11/2020 06:13:00 PM EST [facility] ([facility]) Name Value Range Interpretation Code Description Data Claribel rce(s) Supporting Document(s) bedside glucose 187 mg/dL 70-105 Above high normal Bedside Gluco se [facility] ([facility]) ID Date Data Source [id number] 12/11/2020 06:13:00 PM EST [facility] ([facility]) Name Value Range Interpretation Code Description Data Claribel rce(s) Supporting Document(s) bedside glucose 187 mg/dL 70-105 Above high normal Bedside Gluco se [facility] ([facility]) ID Date Data Source [id number] 12/11/2020 06:13:00 PM EST [facility] ([facility]) Name Value Range Interpretation Code Description Data Claribel rce(s) Supporting Document(s) bedside glucose 187 mg/dL 70-105 Above high normal Bedside Gluco se [facility] ([facility]) ID Date Data Source [id number] 12/11/2020 06:13:00 PM EST [facility] ([facility]) Name Value Range Interpretation Code Description Data Clairbel rce(s) Supporting Document(s) bedside glucose 187 mg/dL 70-105 Above high normal Bedside Gluco se [facility] ([facility]) ID Date Data Source [id number] 12/11/2020 06:13:00 PM EST [facility] ([facility]) Name Value Range Interpretation Code Description Data Claribel rce(s) Supporting Document(s) bedside glucose 187 mg/dL 70-105 Above high normal Bedside Gluco se [facility] ([facility]) ID Date Data Source [id number] 12/11/2020 04:58:00 PM EST [facility] ([facility]) Name Value Range Interpretation Code Description Data Claribel rce(s) Supporting Document(s) bedside glucose 146 mg/dL 70-105 Above high normal Bedside Gluco se [facility] ([facility]) ID Date Data Source [id number] 12/11/2020 04:58:00 PM EST [facility] ([facility]) Name Value Range Interpretation Code Description Data Claribel rce(s) Supporting Document(s) bedside glucose 146 mg/dL 70-105 Above high normal Bedside Gluco se [facility] ([facility]) ID Date Data Source [id number] 12/11/2020 04:58:00 PM EST [facility] ([facility]) Name Value Range Interpretation Code Description Data Claribel rce(s) Supporting Document(s) bedside glucose 146 mg/dL 70-105 Above high normal [facility]side [facility] ID Date Data Source [id number] 12/11/2020 04:58:00 PM EST [facility] ([facility]) Name Value Range Interpretation Code Description Data Claribel rce(s) Supporting Document(s) bedside glucose 146 mg/dL 70-105 Above high normal Bedside Gluco se [facility] ([facility]) ID Date Data Source [id number] 12/11/2020 04:58:00 PM EST [facility] ([facility]) Name Value Range Interpretation Code Description Data Claribel rce(s) Supporting Document(s) bedside glucose 146 mg/dL 70-105 Above high normal Bedside Gluco se [facility] ([facility]) ID Date Data Source [id number] 12/11/2020 04:58:00 PM EST [facility] ([facility]) Name Value Range Interpretation Code Description Data Claribel rce(s) Supporting Document(s) bedside glucose 146 mg/dL 70-105 Above high normal Bedside Gluco se [facility] ([facility]) ID Date Data Source [id number] 12/11/2020 04:56:00 PM EST [facility] ([facility]) Name Value Range Interpretation Code Description Data Claribel rce(s) Supporting Document(s) phosphorus level 1.9 mg/dL 2.5-4.9 Below low normal Phosphorus Le karma [facility] ([facility]) ID Date Data Source [id number] 12/11/2020 04:56:00 PM EST [facility] ([facility]) Name Value Range Interpretation Code Description Data Claribel rce(s) Supporting Document(s) glucose, fasting 169 mg/dL 70-100 Above high normal Glucose, Fas ting [facility] ([facility]) blood urea nitrogen 16 mg/dL 7-18 Blood Urea Nitro gen [facility] ([facility]) creatinine for GFR 1.19 mg/dL 0.55-1.30 Creatinine for GF R [facility] ([facility]) glomerular filtration rate >60 Below low normal Mariza merular Filtration Rate [facility] ([facility]) sodium level 141 mEq/L 136-145 Sodium Level [facility] (No [facility]) potassium serum 3.5 mEq/L 3.5-5.1 Potassium Serum ATHE NA ([facility]) chloride level 112 mEq/L 98-107 Above high normal Chloride Level [facility] ([facility]) carbon dioxide level 18 mEq/L 21-32 Below low normal Carbon Di oxide Level [facility] ([facility]) calcium level 8.6 mg/dL 8.5-10.1 Calcium Level [facility] ( [facility]) anion gap 11 mEq/L 8-16 Anion Gap [facility] ([facility]) ID Date Data Source [id number] 12/11/2020 04:56:00 PM EST [facility] ([facility]) Name Value Range Interpretation Code Description Data Claribel rce(s) Supporting Document(s) venous pH 7.305 units 7.330-7.430 Below low normal Venous pH [facility] ([facility]) venous partial pressure CO2 35.7 mmHg 38.0-50.0 Below low nor mal Venous Partial Pressure CO2 [facility] ([facility]) venous partial pressure O2 188.7 mmHg 30.0-50.0 Above high nor mal Venous Partial Pressure O2 [facility] ([facility]) venous total CO2 18.5 mEq/L 24.0-28.0 Below low normal Venous Total CO2 [facility] ([facility]) venous base excess -2.0-2.0 Below low normal Venous Base Excess [facility] ([facility]) venous HCO3 17.4 mEq/L 23.0-27.0 Below low normal Venous HCO3 [facility] ([facility]) venous standard HCO3 17.9 mEq/L Venous Standard HCO3 [facility] ([facility]) venous O2 saturation 99.3 % 60.0-80.0 Above high normal Venous O 2 Saturation [facility] ([facility]) ID Date Data Source [id number] 12/11/2020 04:56:00 PM EST [facility] ([facility]) Name Value Range Interpretation Code Description Data Claribel rce(s) Supporting Document(s) phosphorus level 1.9 mg/dL 2.5-4.9 Below low normal Phosphorus Le karma [facility] ([facility]) ID Date Data Source [id number] 12/11/2020 04:56:00 PM EST [facility] ([facility]) Name Value Range Interpretation Code Description Data Claribel rce(s) Supporting Document(s) glucose, fasting 169 mg/dL 70-100 Above high normal Glucose, Fas ting [facility] ([facility]) creatinine for GFR 1.19 mg/dL 0.55-1.30 Creatinine for GF R [facility] ([facility]) blood urea nitrogen 16 mg/dL 7-18 Blood Urea Nitro gen [facility] ([facility]) glomerular filtration rate >60 Below low normal Mariza merular Filtration Rate [facility] ([facility]) sodium level 141 mEq/L 136-145 Sodium Level [facility] ([facility]) potassium serum 3.5 mEq/L 3.5-5.1 Potassium Serum ATH NA ([facility]) chloride level 112 mEq/L 98-107 Above high normal Chloride Level [place] ([facility]) carbon dioxide level 18 mEq/L 21-32 Below low normal Carbon Di oxide Level [place] ([facility]) anion gap 11 mEq/L 8-16 Anion Gap [place] ([facility]) calcium level 8.6 mg/dL 8.5-10.1 Calcium Level [place] ( [facility]) ID Date Data Source [id number] 12/11/2020 04:56:00 PM EST [place] ([facility]) Name Value Range Interpretation Code Description Data Claribel rce(s) Supporting Document(s) venous pH 7.305 units 7.330-7.430 Below low normal Venous pH [place] ([facility]) venous partial pressure O2 188.7 mmHg 30.0-50.0 Above high nor mal Venous Partial Pressure O2 [place] ([facility]) venous partial pressure CO2 35.7 mmHg 38.0-50.0 Below low nor mal Venous Partial Pressure CO2 [place] ([facility]) venous HCO3 17.4 mEq/L 23.0-27.0 Below low normal Venous HCO3 [place] ([facility]) venous total CO2 18.5 mEq/L 24.0-28.0 Below low normal Venous Total CO2 [place] ([facility]) venous base excess -2.0-2.0 Below low normal Venous Base Excess [place] ([facility]) venous standard HCO3 17.9 mEq/L Venous Standard HCO3 [place] ([facility]) venous O2 saturation 99.3 % 60.0-80.0 Above high normal Venous O 2 Saturation [place] ([facility]) ID Date Data Source [id number] 12/11/2020 04:56:00 PM EST [place] ([facility]) Name Value Range Interpretation Code Description Data Claribel rce(s) Supporting Document(s) phosphorus level 1.9 mg/dL 2.5-4.9 Below low normal Phosphorus Le karma [place] ([facility]) ID Date Data Source [id number] 12/11/2020 04:56:00 PM EST [place] ([facility]) Name Value Range Interpretation Code Description Data Claribel rce(s) Supporting Document(s) glucose, fasting 169 mg/dL 70-100 Above high normal Glucose, Fas ting [place] ([facility]) creatinine for GFR 1.19 mg/dL 0.55-1.30 Creatinine for GF R [place] ([facility]) blood urea nitrogen 16 mg/dL 7-18 Blood Urea Nitro gen [place] ([facility]) sodium level 141 mEq/L 136-145 Sodium Level [place] ([facility]) glomerular filtration rate >60 Below low normal Mariza merular Filtration Rate [place] ([facility]) chloride level 112 mEq/L 98-107 Above high normal Chloride Level [place] ([facility]) potassium serum 3.5 mEq/L 3.5-5.1 Potassium Serum ATHE NA ([facility]) anion gap 11 mEq/L 8-16 Anion Gap [place] ([facility]) carbon dioxide level 18 mEq/L 21-32 Below low normal Carbon Di oxide Level [place] ([facility]) calcium level 8.6 mg/dL 8.5-10.1 Calcium Level [place] ( [facility]) ID Date Data Source [id number] 12/11/2020 04:56:00 PM EST [place] ([facility]) Name Value Range Interpretation Code Description Data Claribel rce(s) Supporting Document(s) venous partial pressure CO2 35.7 mmHg 38.0-50.0 Below low nor mal Venous Partial Pressure CO2 [place] ([facility]) venous pH 7.305 units 7.330-7.430 Below low normal Venous pH [place] ([facility]) venous total CO2 18.5 mEq/L 24.0-28.0 Below low normal Venous Total CO2 [place] ([facility]) venous partial pressure O2 188.7 mmHg 30.0-50.0 Above high nor mal Venous Partial Pressure O2 [place] ([facility]) venous HCO3 17.4 mEq/L 23.0-27.0 Below low normal Venous HCO3 [place] ([facility]) venous standard HCO3 17.9 mEq/L Venous Standard HCO3 [place] ([facility]) venous base excess -2.0-2.0 Below low normal Venous Base Excess [place] ([facility]) venous O2 saturation 99.3 % 60.0-80.0 Above high normal Venous O 2 Saturation [place] ([facility]) ID Date Data Source [id number] 12/11/2020 04:56:00 PM EST [place] ([facility]) Name Value Range Interpretation Code Description Data Claribel rce(s) Supporting Document(s) phosphorus level 1.9 mg/dL 2.5-4.9 Below low normal Phosphorus Le karma [place] ([facility]) ID Date Data Source [id number] 12/11/2020 04:56:00 PM EST [place] ([facility]) Name Value Range Interpretation Code Description Data Claribel rce(s) Supporting Document(s) glucose, fasting 169 mg/dL 70-100 Above high normal Glucose, Fas ting [place] ([facility]) blood urea nitrogen 16 mg/dL 7-18 Blood Urea Nitro gen [place] ([facility]) creatinine for GFR 1.19 mg/dL 0.55-1.30 Creatinine for GF R [place] ([facility]) sodium level 141 mEq/L 136-145 Sodium Level [place] ([facility]) glomerular filtration rate >60 Below low normal Mariza merular Filtration Rate [place] ([facility]) chloride level 112 mEq/L 98-107 Above high normal Chloride Level [place] ([facility]) potassium serum 3.5 mEq/L 3.5-5.1 Potassium Serum ATHE NA ([facility]) carbon dioxide level 18 mEq/L 21-32 Below low normal Carbon Di oxide Level [place] ([facility]) anion gap 11 mEq/L 8-16 Anion Gap [place] ([facility]) calcium level 8.6 mg/dL 8.5-10.1 Calcium Level [place] ( [facility]) ID Date Data Source [id number] 12/11/2020 04:56:00 PM EST [place] ([facility]) Name Value Range Interpretation Code Description Data Claribel rce(s) Supporting Document(s) venous partial pressure CO2 35.7 mmHg 38.0-50.0 Below low nor mal Venous Partial Pressure CO2 [place] ([facility]) venous pH 7.305 units 7.330-7.430 Below low normal Venous pH [place] ([facility]) venous partial pressure O2 188.7 mmHg 30.0-50.0 Above high nor mal [facility] total CO2 18.5 mEq/L 24.0-28.0 Below low normal Venous Total CO2 [place] ([facility]) venous HCO3 17.4 mEq/L 23.0-27.0 Below low normal Venous HCO3 [place] ([facility]) venous standard HCO3 17.9 mEq/L Venous Standard HCO3 [place] ([facility]) venous base excess -2.0-2.0 Below low normal Venous Base Excess [place] ([facility]) venous O2 saturation 99.3 % 60.0-80.0 Above high normal Venous O 2 Saturation [place] ([facility]) ID Date Data Source [id number] 12/11/2020 04:56:00 PM EST [place] ([facility]) Name Value Range Interpretation Code Description Data Claribel rce(s) Supporting Document(s) phosphorus level 1.9 mg/dL 2.5-4.9 Below low normal Phosphorus Le kamra [place] ([facility]) ID Date Data Source [id number] 12/11/2020 04:56:00 PM EST [place] ([facility]) Name Value Range Interpretation Code Description Data Claribel rce(s) Supporting Document(s) glucose, fasting 169 mg/dL 70-100 Above high normal Glucose, Fas ting [place] ([facility]) creatinine for GFR 1.19 mg/dL 0.55-1.30 Creatinine for GF R [place] ([facility]) blood urea nitrogen 16 mg/dL 7-18 Blood Urea Nitro gen [place] ([facility]) glomerular filtration rate >60 Below low normal Mariza merular Filtration Rate [place] ([facility]) sodium level 141 mEq/L 136-145 Sodium Level [place] ([facility]) potassium serum 3.5 mEq/L 3.5-5.1 Potassium Serum ATHE NA ([facility]) chloride level 112 mEq/L 98-107 Above high normal Chloride Level [place] ([facility]) anion gap 11 mEq/L 8-16 Anion Gap [facility] ([facility]) carbon dioxide level 18 mEq/L 21-32 Below low normal Carbon Di oxide Level [place] ([facility]) calcium level 8.6 mg/dL 8.5-10.1 Calcium Level [place] ( [facility]) ID Date Data Source [id number] 12/11/2020 04:56:00 PM EST [place] ([facility]) Name Value Range Interpretation Code Description Data Claribel rce(s) Supporting Document(s) venous pH 7.305 units 7.330-7.430 Below low normal Venous pH [place] ([facility]) venous partial pressure CO2 35.7 mmHg 38.0-50.0 Below low nor mal Venous Partial Pressure CO2 [place] ([facility]) venous partial pressure O2 188.7 mmHg 30.0-50.0 Above high nor mal Venous Partial Pressure O2 [place] ([facility]) venous total CO2 18.5 mEq/L 24.0-28.0 Below low normal Venous Total CO2 [place] ([facility]) venous HCO3 17.4 mEq/L 23.0-27.0 Below low normal Venous HCO3 [place] ([facility]) venous standard HCO3 17.9 mEq/L Venous Standard HCO3 [place] ([facility]) venous base excess -2.0-2.0 Below low normal Venous Base Excess [place] ([facility]) venous O2 saturation 99.3 % 60.0-80.0 Above high normal Venous O 2 Saturation [place] ([facility]) ID Date Data Source [id number] 12/11/2020 04:56:00 PM EST [place] ([facility]) Name Value Range Interpretation Code Description Data Claribel rce(s) Supporting Document(s) phosphorus level 1.9 mg/dL 2.5-4.9 Below low normal Phosphorus Le karma [place] ([facility]) ID Date Data Source [id number] 12/11/2020 04:56:00 PM EST [place] ([facility]) Name Value Range Interpretation Code Description Data Claribel rce(s) Supporting Document(s) glucose, fasting 169 mg/dL 70-100 Above high normal Glucose, Fas ting [place] ([facility]) blood urea nitrogen 16 mg/dL 7-18 Blood Urea Nitro gen [place] ([facility]) creatinine for GFR 1.19 mg/dL 0.55-1.30 Creatinine for GF R [place] ([facility]) glomerular filtration rate >60 Below low normal Mariza merular Filtration Rate [place] ([facility]) sodium level 141 mEq/L 136-145 Sodium Level [place] ([facility]) potassium serum 3.5 mEq/L 3.5-5.1 Potassium Serum ATHE NA ([facility]) chloride level 112 mEq/L 98-107 Above high normal Chloride Level [place] ([facility]) carbon dioxide level 18 mEq/L 21-32 Below low normal Carbon Di oxide Level [place] ([facility]) calcium level 8.6 mg/dL 8.5-10.1 Calcium Level [place] ( [facility]) anion gap 11 mEq/L 8-16 Anion Gap [facility] ([facility]) ID Date Data Source [id number] 12/11/2020 04:56:00 PM EST [place] ([facility]) Name Value Range Interpretation Code Description Data Claribel rce(s) Supporting Document(s) venous pH 7.305 units 7.330-7.430 Below low normal Venous pH [place] ([facility]) venous partial pressure CO2 35.7 mmHg 38.0-50.0 Below low nor mal Venous Partial Pressure CO2 [place] ([facility]) venous total CO2 18.5 mEq/L 24.0-28.0 Below low normal Venous Total CO2 [place] ([facility]) venous partial pressure O2 188.7 mmHg 30.0-50.0 Above high nor mal Venous Partial Pressure O2 [place] ([facility]) venous HCO3 17.4 mEq/L 23.0-27.0 Below low normal Venous HCO3 [place] ([facility]) venous base excess -2.0-2.0 Below low normal Venous Base Excess [place] ([facility]) venous O2 saturation 99.3 % 60.0-80.0 Above high normal Venous O 2 Saturation [place] ([facility]) venous standard HCO3 17.9 mEq/L Venous Standard HCO3 [place] ([facility]) ID Date Data Source [id number] 12/11/2020 04:01:00 PM EST [place] ([facility]) Name Value Range Interpretation Code Description Data Claribel rce(s) Supporting Document(s) bedside glucose 160 mg/dL 70-105 Above high normal Bedside Gluco se [place] ([facility]) ID Date Data Source [id number] 12/11/2020 04:01:00 PM EST [place] ([facility]) Name Value Range Interpretation Code Description Data Claribel rce(s) Supporting Document(s) bedside glucose 160 mg/dL 70-105 Above high normal Bedside Gluco se [place] ([facility]) ID Date Data Source [id number] 12/11/2020 04:01:00 PM EST [place] ([facility]) Name Value Range Interpretation Code Description Data Claribel rce(s) Supporting Document(s) bedside glucose 160 mg/dL 70-105 Above high normal Bedside Gluco se [place] ([facility]) ID Date Data Source [id number] 12/11/2020 04:01:00 PM EST [place] ([facility]) Name Value Range Interpretation Code Description Data Claribel rce(s) Supporting Document(s) bedside glucose 160 mg/dL 70-105 Above high normal Bedside Gluco se [place] ([facility]) ID Date Data Source [id number] 12/11/2020 04:01:00 PM EST [place] ([facility]) Name Value Range Interpretation Code Description Data Claribel rce(s) Supporting Document(s) bedside glucose 160 mg/dL 70-105 Above high normal Bedside Gluco se [place] ([facility]) ID Date Data Source [id number] 12/11/2020 04:01:00 PM EST [place] ([facility]) Name Value Range Interpretation Code Description Data Claribel rce(s) Supporting Document(s) bedside glucose 160 mg/dL 70-105 Above high normal Bedside Gluco se [place] ([facility]) ID Date Data Source [id number] 12/11/2020 03:04:00 PM EST [place] ([facility]) Name Value Range Interpretation Code Description Data Claribel rce(s) Supporting Document(s) bedside glucose 194 mg/dL 70-105 Above high normal Bedside Gluco se [place] ([facility]) ID Date Data Source [id number] 12/11/2020 03:04:00 PM EST [place] ([facility]) Name Value Range Interpretation Code Description Data Claribel rce(s) Supporting Document(s) bedside glucose 194 mg/dL 70-105 Above high normal Bedside Gluco se [place] ([facility]) ID Date Data Source [id number] 12/11/2020 03:04:00 PM EST [place] ([facility]) Name Value Range Interpretation Code Description Data Claribel rce(s) Supporting Document(s) bedside glucose 194 mg/dL 70-105 Above high normal Bedside Gluco se [place] ([facility]) ID Date Data Source [id number] 12/11/2020 03:04:00 PM EST [place] ([facility]) Name Value Range Interpretation Code Description Data Claribel rce(s) Supporting Document(s) bedside glucose 194 mg/dL 70-105 Above high normal Bedside Gluco se [place] ([facility]) ID Date Data Source [id number] 12/11/2020 03:04:00 PM EST [place] ([facility]) Name Value Range Interpretation Code Description Data Claribel rce(s) Supporting Document(s) bedside glucose 194 mg/dL 70-105 Above high normal Bedside Gluco se [place] ([facility]) ID Date Data Source [id number] 12/11/2020 03:04:00 PM EST [place] ([facility]) Name Value Range Interpretation Code Description Data Claribel rce(s) Supporting Document(s) bedside glucose 194 mg/dL 70-105 Above high normal Bedside Gluco se [place] ([facility]) ID Date Data Source [id number] 12/11/2020 02:11:00 PM EST [place] ([facility]) Name Value Range Interpretation Code Description Data Claribel rce(s) Supporting Document(s) bedside glucose 148 mg/dL 70-105 Above high normal Bedside Gluco se [place] ([facility]) ID Date Data Source [id number] 12/11/2020 02:11:00 PM EST [place] ([facility]) Name Value Range Interpretation Code Description Data Claribel rce(s) Supporting Document(s) bedside glucose 148 mg/dL 70-105 Above high normal Bedside Gluco se [place] ([facility]) ID Date Data Source [id number] 12/11/2020 02:11:00 PM EST [place] ([facility]) Name Value Range Interpretation Code Description Data Claribel rce(s) Supporting Document(s) bedside glucose 148 mg/dL 70-105 Above high normal Bedside Gluco se [place] ([facility]) ID Date Data Source [id number] 12/11/2020 02:11:00 [facility] Name Value Range Interpretation Code Description Data Claribel rce(s) Supporting Document(s) bedside glucose 148 mg/dL 70-105 Above high normal [facility]side [facility] ID Date Data Source [id number] 12/11/2020 02:11:00 PM EST [place] ([facility]) Name Value Range Interpretation Code Description Data Claribel rce(s) Supporting Document(s) bedside glucose 148 mg/dL 70-105 Above high normal Bedside Gluco se [facility]) ID Date Data Source [id number] 12/11/2020 02:11:00 PM EST [place] ([facility]) Name Value Range Interpretation Code Description Data Claribel rce(s) Supporting Document(s) bedside glucose 148 mg/dL 70-105 Above high normal Bedside Gluco se [place] ([facility]) ID Date Data Source [id number] 12/11/2020 01:15:00 PM EST [place] ([facility]) Name Value Range Interpretation Code Description Data Claribel rce(s) Supporting Document(s) bedside glucose 157 mg/dL 70-105 Above high normal Bedside Gluco se [place] ([facility]) ID Date Data Source [id number] 12/11/2020 01:15:00 PM EST [place] ([facility]) Name Value Range Interpretation Code Description Data Claribel rce(s) Supporting Document(s) bedside glucose 157 mg/dL 70-105 Above high normal Bedside Gluco se [place] ([facility]) ID Date Data Source [id number] 12/11/2020 01:15:00 PM EST [place] ([facility]) Name Value Range Interpretation Code Description Data Claribel rce(s) Supporting Document(s) bedside glucose 157 mg/dL 70-105 Above high normal Bedside Gluco se [facility] ([facility]) ID Date Data Source [id number] 12/11/2020 01:15:00 PM EST [place] ([facility]) Name Value Range Interpretation Code Description Data Claribel rce(s) Supporting Document(s) bedside glucose 157 mg/dL 70-105 Above high normal Bedside Gluco se [facility] ([facility]) ID Date Data Source [id number] 12/11/2020 01:15:00 PM EST [facility]) Name Value Range Interpretation Code Description Data Claribel rce(s) Supporting Document(s) bedside glucose 157 mg/dL 70-105 Above high normal Bedside Gluco se [facility] ([facility]) ID Date Data Source [id number] 12/11/2020 01:15:00 PM EST [place] ([facility]) Name Value Range Interpretation Code Description Data Claribel rce(s) Supporting Document(s) bedside glucose 157 mg/dL 70-105 Above high normal Bedside Gluco se [facility] ([facility]) ID Date Data Source [id number] 12/11/2020 01:05:00 PM EST [place] ([facility]) Name Value Range Interpretation Code Description Data Claribel rce(s) Supporting Document(s) osmolality serum 306 mOsm/kg 275-295 Above high normal Osmolality Serum [place] ([facility]) ID Date Data Source [id number] 12/11/2020 01:05:00 PM EST [place] ([facility]) Name Value Range Interpretation Code Description Data Claribel rce(s) Supporting Document(s) phosphorus level 2.2 mg/dL 2.5-4.9 Below low normal Phosphorus Le karma [facility] ([facility]) ID Date Data Source [id number] 12/11/2020 01:05:00 PM EST [place] ([facility]) Name Value Range Interpretation Code Description Data Claribel rce(s) Supporting Document(s) glucose, fasting 181 mg/dL 70-100 Above high normal Glucose, Fas ting [facility] ([facility]) blood urea nitrogen 18 mg/dL 7-18 Blood Urea Nitro gen [facility] ([facility]) creatinine for GFR 1.28 mg/dL 0.55-1.30 Creatinine for GF R [place] ([facility]) glomerular filtration rate >60 Below low normal Mariza merular Filtration Rate [facility] ([facility]) sodium level 141 mEq/L 136-145 Sodium Level [facility] (No [facility]) potassium serum 3.4 mEq/L 3.5-5.1 Below low normal Potassium Seru m [facility] ([facility]) chloride level 112 mEq/L 98-107 Above high normal Chloride Level [facility] ([facility]) carbon dioxide level 18 mEq/L 21-32 Below low normal Carbon Di oxide Level [place] ([facility]) anion gap 11 mEq/L 8-16 Anion Gap [facility] ([facility]) calcium level 8.6 mg/dL 8.5-10.1 Calcium Level [place] ( [facility] [facility] ID Date Data Source [id number] 12/11/2020 01:05:00 PM EST [facility] ([facility]) Name Value Range Interpretation Code Description Data Claribel rce(s) Supporting Document(s) venous pH 7.238 units 7.330-7.430 Below low normal Venous pH [facility] ([facility]) venous partial pressure CO2 35.2 mmHg 38.0-50.0 Below low nor mal Venous Partial Pressure CO2 [facility] ([facility]) venous partial pressure O2 105.8 mmHg 30.0-50.0 Above high nor mal Venous Partial Pressure O2 [facility] ([facility]) venous total CO2 15.8 mEq/L 24.0-28.0 Below low normal Venous Total CO2 [facility] ([facility]) venous HCO3 14.7 mEq/L 23.0-27.0 Below low normal Venous HCO3 [facility] ([facility]) venous base excess -2.0-2.0 Below low normal Venous Base Excess [facility] ([facility]) venous standard HCO3 15.2 mEq/L Venous Standard HCO3 [facility] ([facility]) venous O2 saturation 97.8 % 60.0-80.0 Above high normal Venous O 2 Saturation [facility] ([facility]) ID Date Data Source [id number] 12/11/2020 01:05:00 PM EST [facility] ([facility]) Name Value Range Interpretation Code Description Data Claribel rce(s) Supporting Document(s) osmolality serum 306 mOsm/kg 275-295 Above high normal Osmolality Serum [facility]) ID Date Data Source [id number] 12/11/2020 01:05:00 PM EST [facility] ([facility]) Name Value Range Interpretation Code Description Data Claribel rce(s) Supporting Document(s) phosphorus level 2.2 mg/dL 2.5-4.9 Below low normal Phosphorus Le karma [facility] ([facility]) ID Date Data Source [id number] 12/11/2020 01:05:00 PM EST [facility] ([facility]) Name Value Range Interpretation Code Description Data Claribel rce(s) Supporting Document(s) blood urea nitrogen 18 mg/dL 7-18 Blood Urea Nitro gen [facility] ([facility]) glucose, fasting 181 mg/dL 70-100 Above high normal Glucose, Fas ting [facility] ([facility]) glomerular filtration rate >60 Below low normal Mariza merular Filtration Rate [facility] ([facility]) creatinine for GFR 1.28 mg/dL 0.55-1.30 Creatinine for GF R [facility] ([facility]) sodium level 141 mEq/L 136-145 Sodium Level [facility] ([facility]) potassium serum 3.4 mEq/L 3.5-5.1 Below low normal Potassium Seru m [facility] ([facility]) chloride level 112 mEq/L 98-107 Above high normal Chloride Level [facility] ([facility]) carbon dioxide level 18 mEq/L 21-32 Below low normal Carbon Di oxide Level [facility] ([facility]) anion gap 11 mEq/L 8-16 Anion Gap [facility] ([facility]) calcium level 8.6 mg/dL 8.5-10.1 Calcium Level [facility] ( [facility]) ID Date Data Source [id number] 12/11/2020 01:05:00 PM EST [facility] ([facility]) Name Value Range Interpretation Code Description Data Claribel rce(s) Supporting Document(s) venous pH 7.238 units 7.330-7.430 Below low normal Venous pH [facility] ([facility]) venous partial pressure CO2 35.2 mmHg 38.0-50.0 Below low nor mal Venous Partial Pressure CO2 [facility] ([facility]) venous partial pressure O2 105.8 mmHg 30.0-50.0 Above high nor mal Venous Partial Pressure O2 [facility] ([facility]) venous total CO2 15.8 mEq/L 24.0-28.0 Below low normal Venous Total CO2 [facility] ([facility]) venous HCO3 14.7 mEq/L 23.0-27.0 Below low normal Venous HCO3 [facility] ([facility]) venous base excess -2.0-2.0 Below low normal Venous Base Excess [facility] ([facility]) venous standard HCO3 15.2 mEq/L Venous Standard HCO3 [facility] ([facility]) venous O2 saturation 97.8 % 60.0-80.0 Above high normal Venous O 2 Saturation [facility] ([facility]) ID Date Data Source [id number] 12/11/2020 01:05:00 PM EST [facility] ([facility]) Name Value Range Interpretation Code Description Data Claribel rce(s) Supporting Document(s) osmolality serum 306 mOsm/kg 275-295 Above high normal Osmolality Serum [facility] ([facility]) ID Date Data Source [id number] 12/11/2020 01:05:00 PM EST [facility] ([facility]) Name Value Range Interpretation Code Description Data Claribel rce(s) Supporting Document(s) phosphorus level 2.2 mg/dL 2.5-4.9 Below low normal Phosphorus Le karma [facility] ([facility]) ID Date Data Source [id number] 12/11/2020 01:05:00 PM EST [facility] ([facility]) Name Value Range Interpretation Code Description Data Claribel rce(s) Supporting Document(s) glucose, fasting 181 mg/dL 70-100 Above high normal Glucose, Fas ting [facility] ([facility]) blood urea nitrogen 18 mg/dL 7-18 Blood Urea Nitro gen [facility] ([facility]) glomerular filtration rate >60 Below low normal Mariza merular Filtration Rate [facility] ([facility]) creatinine for GFR 1.28 mg/dL 0.55-1.30 Creatinine for GF R [facility] ([facility]) sodium level 141 mEq/L 136-145 Sodium Level [facility] ([facility]) potassium serum 3.4 mEq/L 3.5-5.1 Below low normal Potassium Seru m [facility] ([facility]) chloride level 112 mEq/L 98-107 Above high normal Chloride Level [facility] ([facility]) carbon dioxide level 18 mEq/L 21-32 Below low normal Carbon Di oxide Level [facility] ([facility]) anion gap 11 mEq/L 8-16 Anion Gap [facility] ([facility]) calcium level 8.6 mg/dL 8.5-10.1 Calcium Level [facility] ( [facility]) ID Date Data Source [id number] 12/11/2020 01:05:00 PM EST [facility] ([facility]) Name Value Range Interpretation Code Description Data Claribel rce(s) Supporting Document(s) venous pH 7.238 units 7.330-7.430 Below low normal Venous pH [facility] ([facility]) venous partial pressure CO2 35.2 mmHg 38.0-50.0 Below low nor mal Venous Partial Pressure CO2 [facility] ([facility]) venous total CO2 15.8 mEq/L 24.0-28.0 Below low normal Venous Total CO2 [facility] ([facility]) venous partial pressure O2 105.8 mmHg 30.0-50.0 Above high nor mal Venous Partial Pressure O2 [facility] ([facility]) venous HCO3 14.7 mEq/L 23.0-27.0 Below low normal Venous HCO3 [facility]) venous base excess -2.0-2.0 Below low normal Venous Base Excess [facility] ([facility]) venous O2 saturation 97.8 % 60.0-80.0 Above high normal Venous O 2 Saturation [facility] ([facility]) venous standard HCO3 15.2 mEq/L Venous Standard HCO3 [facility] ([facility]) ID Date Data Source [id number] 12/11/2020 01:05:00 PM EST [facility] ([facility]) Name Value Range Interpretation Code Description Data Claribel rce(s) Supporting Document(s) osmolality serum 306 mOsm/kg 275-295 Above high normal Osmolality Serum [facility] ([facility]) ID Date Data Source [id number] 12/11/2020 01:05:00 PM EST [facility] ([facility]) Name Value Range Interpretation Code Description Data Claribel rce(s) Supporting Document(s) phosphorus level 2.2 mg/dL 2.5-4.9 Below low normal Phosphorus Le karma [facility] ([facility]) ID Date Data Source [id number] 12/11/2020 01:05:00 PM EST [facility] ([facility]) Name Value Range Interpretation Code Description Data Claribel rce(s) Supporting Document(s) glucose, fasting 181 mg/dL 70-100 Above high normal Glucose, Fas ting [facility] ([facility]) blood urea nitrogen 18 mg/dL 7-18 Blood Urea Nitro gen [facility] ([facility]) creatinine for GFR 1.28 mg/dL 0.55-1.30 Creatinine for GF R [facility] ([facility]) glomerular filtration rate >60 Below low normal Mariza merular Filtration Rate [facility] ([facility]) potassium serum 3.4 mEq/L 3.5-5.1 Below low normal Potassium Seru m [facility] ([facility]) sodium level 141 mEq/L 136-145 Sodium Level [facility] ([facility]) chloride level 112 mEq/L 98-107 Above high normal Chloride Level [facility] ([facility]) carbon dioxide level 18 mEq/L 21-32 Below low normal Carbon Di oxide Level [facility] ([facility]) anion gap 11 mEq/L 8-16 Anion Gap [facility] ([facility]) calcium level 8.6 mg/dL 8.5-10.1 Calcium Level [facility] ( [facility]) ID Date Data Source [id number] 12/11/2020 01:05:00 PM EST [facility] ([facility]) Name Value Range Interpretation Code Description Data Claribel rce(s) Supporting Document(s) venous pH 7.238 units 7.330-7.430 Below low normal Venous pH [facility] ([facility]) venous partial pressure CO2 35.2 mmHg 38.0-50.0 Below low nor mal Venous Partial Pressure CO2 [facility] ([facility]) venous partial pressure O2 105.8 mmHg 30.0-50.0 Above high nor mal Venous Partial Pressure O2 [facility] ([facility]) venous total CO2 15.8 mEq/L 24.0-28.0 Below low normal Venous Total CO2 [facility] ([facility]) venous HCO3 14.7 mEq/L 23.0-27.0 Below low normal Venous HCO3 [facility] ([facility]) venous base excess -2.0-2.0 Below low normal Venous Base Excess [facility] ([facility]) venous O2 saturation 97.8 % 60.0-80.0 Above high normal Venous O 2 Saturation [facility] ([facility]) venous standard HCO3 15.2 mEq/L Venous Standard HCO3 [facility] ([facility]) ID Date Data Source [id number] 12/11/2020 01:05:00 PM EST [facility] ([facility]) Name Value Range Interpretation Code Description Data Claribel rce(s) Supporting Document(s) osmolality serum 306 mOsm/kg 275-295 Above high normal Osmolality Serum [facility] ([facility]) ID Date Data Source [id number] 12/11/2020 01:05:00 PM EST [facility] ([facility]) Name Value Range Interpretation Code Description Data Claribel rce(s) Supporting Document(s) phosphorus level 2.2 mg/dL 2.5-4.9 Below low normal Phosphorus Le karma [facility] ([facility]) ID Date Data Source [id number] 12/11/2020 01:05:00 PM EST [facility] ([facility]) Name Value Range Interpretation Code Description Data Claribel rce(s) Supporting Document(s) glucose, fasting 181 mg/dL 70-100 Above high normal Glucose, Fas ting [facility] ([facility]) blood urea nitrogen 18 mg/dL 7-18 Blood Urea Nitro gen [facility] ([facility]) creatinine for GFR 1.28 mg/dL 0.55-1.30 Creatinine for GF R [facility] ([facility]) sodium level 141 mEq/L 136-145 Sodium Level [facility] ([facility]) glomerular filtration rate >60 Below low normal Mariza merular Filtration Rate [facility] ([facility]) potassium serum 3.4 mEq/L 3.5-5.1 Below low normal Potassium Seru m [facility] ([facility]) chloride level 112 mEq/L 98-107 Above high normal Chloride Level [facility] ([facility]) carbon dioxide level 18 mEq/L 21-32 Below low normal Carbon Di oxide Level [facility] ([facility]) anion gap 11 mEq/L 8-16 Anion Gap [facility] ([facility]) calcium level 8.6 mg/dL 8.5-10.1 Calcium Level [facility] ( [facility]) ID Date Data Source [id number] 12/11/2020 01:05:00 PM EST [facility] ([facility]) Name Value Range Interpretation Code Description Data Claribel rce(s) Supporting Document(s) venous pH 7.238 units 7.330-7.430 Below low normal Venous pH [facility] ([facility]) venous partial pressure CO2 35.2 mmHg 38.0-50.0 Below low nor mal Venous Partial Pressure CO2 [facility] ([facility]) venous partial pressure O2 105.8 mmHg 30.0-50.0 Above high nor mal Venous Partial Pressure O2 [facility]) venous HCO3 14.7 mEq/L 23.0-27.0 Below low normal Venous HCO3 [facility] ([facility]) venous total CO2 15.8 mEq/L 24.0-28.0 Below low normal Venous Total CO2 [facility] ([facility]) venous base excess -2.0-2.0 Below low normal Venous Base Excess [facility] ([facility]) venous standard HCO3 15.2 mEq/L Venous Standard HCO3 [facility] ([facility]) venous O2 saturation 97.8 % 60.0-80.0 Above high normal Venous O 2 Saturation [facility] ([facility]) ID Date Data Source [id number] 12/11/2020 01:05:00 PM EST [facility] ([facility]) Name Value Range Interpretation Code Description Data Claribel rce(s) Supporting Document(s) osmolality serum 306 mOsm/kg 275-295 Above high normal Osmolality Serum [facility] ([facility]) ID Date Data Source [id number] 12/11/2020 01:05:00 PM EST [facility] ([facility]) Name Value Range Interpretation Code Description Data Claribel rce(s) Supporting Document(s) phosphorus level 2.2 mg/dL 2.5-4.9 Below low normal Phosphorus Le karma [facility] ([facility]) ID Date Data Source [id number] 12/11/2020 01:05:00 PM EST [facility] ([facility]) Name Value Range Interpretation Code Description Data Claribel rce(s) Supporting Document(s) blood urea nitrogen 18 mg/dL 7-18 Blood Urea Nitro gen [facility] ([facility]) glucose, fasting 181 mg/dL 70-100 Above high normal Glucose, Fas ting [facility] ([facility]) creatinine for GFR 1.28 mg/dL 0.55-1.30 Creatinine for GF R [facility] ([facility]) glomerular filtration rate >60 Below low normal Mariza merular Filtration Rate [facility] ([facility]) sodium level 141 mEq/L 136-145 Sodium Level [facility] ([facility]) chloride level 112 mEq/L 98-107 Above high normal Chloride Level [facility] ([facility]) potassium serum 3.4 mEq/L 3.5-5.1 Below low normal Potassium Seru m [facility] ([facility]) anion gap 11 mEq/L 8-16 Anion Gap [facility] ([facility]) carbon dioxide level 18 mEq/L 21-32 Below low normal Carbon Di oxide Level [facility] ([facility]) calcium level 8.6 mg/dL 8.5-10.1 Calcium Level [facility] ( [facility]) ID Date Data Source [id number] 12/11/2020 01:05:00 PM EST [facility] ([facility]) Name Value Range Interpretation Code Description Data Claribel rce(s) Supporting Document(s) venous pH 7.238 units 7.330-7.430 Below low normal Venous pH [facility] ([facility]) venous partial pressure CO2 35.2 mmHg 38.0-50.0 Below low nor mal Venous Partial Pressure CO2 [facility] ([facility]) venous partial pressure O2 105.8 mmHg 30.0-50.0 Above high nor mal Venous Partial Pressure O2 [facility] ([facility]) venous total CO2 15.8 mEq/L 24.0-28.0 Below low normal Venous Total CO2 [facility] ([facility]) venous base excess -2.0-2.0 Below low normal Venous Base Excess [facility] ([facility]) venous HCO3 14.7 mEq/L 23.0-27.0 Below low normal Venous HCO3 [facility] ([facility]) venous standard HCO3 15.2 mEq/L Venous Standard HCO3 [facility] ([facility]) venous O2 saturation 97.8 % 60.0-80.0 Above high normal Venous O 2 Saturation [facility] ([facility]) ID Date Data Source [id number] 12/11/2020 12:13:00 PM EST [facility] ([facility]) Name Value Range Interpretation Code Description Data Claribel rce(s) Supporting Document(s) bedside glucose 162 mg/dL 70-105 Above high normal Bedside Gluco se [facility] ([facility]) ID Date Data Source [id number] 12/11/2020 12:13:00 PM EST [facility] ([facility]) Name Value Range Interpretation Code Description Data Claribel rce(s) Supporting Document(s) bedside glucose 162 mg/dL 70-105 Above high normal Bedside Gluco se [facility] ([facility]) ID Date Data Source [id number] 12/11/2020 12:13:00 PM EST [facility] ([facility]) Name Value Range Interpretation Code Description Data Claribel rce(s) Supporting Document(s) bedside glucose 162 mg/dL 70-105 Above high normal Bedside Gluco se [facility] ([facility]) ID Date Data Source [id number] 12/11/2020 12:13:00 PM EST [facility] ([facility]) Name Value Range Interpretation Code Description Data Claribel rce(s) Supporting Document(s) bedside glucose 162 mg/dL 70-105 Above high normal Bedside Gluco se [facility] ([facility]) ID Date Data Source [id number] 12/11/2020 12:13:00 PM EST [facility] ([facility]) Name Value Range Interpretation Code Description Data Claribel rce(s) Supporting Document(s) bedside glucose 162 mg/dL 70-105 Above high normal Bedside Gluco se [facility] ([facility]) ID Date Data Source [id number] 12/11/2020 12:13:00 PM EST [facility] ([facility]) Name Value Range Interpretation Code Description Data Claribel rce(s) Supporting Document(s) bedside glucose 162 mg/dL 70-105 Above high normal Bedside Gluco se [facility] ([facility]) ID Date Data Source [id number] 12/11/2020 11:07:00 AM EST [facility] ([facility]) Name Value Range Interpretation Code Description Data Claribel rce(s) Supporting Document(s) bedside glucose 146 mg/dL 70-105 Above high normal Bedside Gluco se [facility] ([facility]) ID Date Data Source [id number] 12/11/2020 11:07:00 AM EST [facility] ([facility]) Name Value Range Interpretation Code Description Data Claribel rce(s) Supporting Document(s) bedside glucose 146 mg/dL 70-105 Above high normal Bedside Gluco se [facility] ([facility]) ID Date Data Source [id number] 12/11/2020 11:07:00 AM EST [facility] ([facility]) Name Value Range Interpretation Code Description Data Claribel rce(s) Supporting Document(s) bedside glucose 146 mg/dL 70-105 Above high normal [facility] Date Data Source [id number] 12/11/2020 11:07:00 AM EST [facility]) Name Value Range Interpretation Code Description Data Claribel rce(s) Supporting Document(s) bedside glucose 146 mg/dL 70-105 Above high normal [facility] ID Date Data Source [id number] 12/11/2020 11:07:00 AM EST [facility] ([facility]) Name Value Range Interpretation Code Description Data Claribel rce(s) Supporting Document(s) bedside glucose 146 mg/dL 70-105 Above high normal [facility] ID Date Data Source [id number] 12/11/2020 11:07:00 AM EST [facility]) Name Value Range Interpretation Code Description Data Claribel rce(s) Supporting Document(s) bedside glucose 146 mg/dL 70-105 Above high normal [facility] ID Date Data Source [id number] 12/11/2020 10:19:00 AM EST [facility] ([facility]) Name Value Range Interpretation Code Description Data Claribel rce(s) Supporting Document(s) bedside glucose 159 mg/dL 70-105 Above high normal Bedside Gluco se [facility] ([facility]) ID Date Data Source [id number] 12/11/2020 10:19:00 AM EST [facility] ([facility]) Name Value Range Interpretation Code Description Data Claribel rce(s) Supporting Document(s) bedside glucose 159 mg/dL 70-105 Above high normal Bedside Gluco se [facility] ([facility]) ID Date Data Source [id number] 12/11/2020 10:19:00 AM EST [facility] ([facility]) Name Value Range Interpretation Code Description Data Claribel rce(s) Supporting Document(s) bedside glucose 159 mg/dL 70-105 Above high normal Bedside Gluco se [facility] ([facility]) ID Date Data Source [id number] 12/11/2020 10:19:00 AM EST [facility] ([facility]) Name Value Range Interpretation Code Description Data Claribel rce(s) Supporting Document(s) bedside glucose 159 mg/dL 70-105 Above high normal Bedside Gluco se [facility] ([facility]) ID Date Data Source [id number] 12/11/2020 10:19:00 AM EST [facility] ([facility]) Name Value Range Interpretation Code Description Data Claribel rce(s) Supporting Document(s) bedside glucose 159 mg/dL 70-105 Above high normal Bedside Gluco se [facility] ([facility]) ID Date Data Source [id number] 12/11/2020 10:19:00 AM EST [facility] ([facility]) Name Value Range Interpretation Code Description Data Claribel rce(s) Supporting Document(s) bedside glucose 159 mg/dL 70-105 Above high normal Bedside Gluco se [facility] ([facility]) ID Date Data Source [id number] 12/11/2020 09:01:00 AM EST [facility] ([facility]) Name Value Range Interpretation Code Description Data Claribel rce(s) Supporting Document(s) bedside glucose 189 mg/dL 70-105 Above high normal Bedside Gluco se [facility] ([facility]) ID Date Data Source [id number] 12/11/2020 09:01:00 AM EST [facility] ([facility]) Name Value Range Interpretation Code Description Data Claribel rce(s) Supporting Document(s) bedside glucose 189 mg/dL 70-105 Above high normal Bedside Gluco se [facility] ([facility]) ID Date Data Source [id number] 12/11/2020 09:01:00 AM EST [facility]ND[facility] ([facility]) Name Value Range Interpretation Code Description Data Claribel rce(s) Supporting Document(s) bedside glucose 189 mg/dL 70-105 Above high normal Bedside Gluco se [facility] ([facility]) ID Date Data Source [id number] 12/11/2020 09:01:00 AM EST [facility] ([facility]) Name Value Range Interpretation Code Description Data Claribel rce(s) Supporting Document(s) bedside glucose 189 mg/dL 70-105 Above high normal Bedside Gluco se [facility] ([facility]) ID Date Data Source [id number] 12/11/2020 09:01:00 AM EST [facility] ([facility]) Name Value Range Interpretation Code Description Data Claribel rce(s) Supporting Document(s) bedside glucose 189 mg/dL 70-105 Above high normal Bedside Gluco se [facility] ([facility]) ID Date Data Source [id number] 12/11/2020 09:01:00 AM EST [facility]ND[facility] ([facility]) Name Value Range Interpretation Code Description Data Claribel rce(s) Supporting Document(s) bedside glucose 189 mg/dL 70-105 Above high normal Bedside Gluco se [facility] ([facility]) ID Date Data Source [id number] 12/11/2020 08:13:00 AM EST [facility] ([facility]) Name Value Range Interpretation Code Description Data Claribel rce(s) Supporting Document(s) bedside glucose 168 mg/dL 70-105 Above high normal Bedside Gluco se [place] ([facility]) ID Date Data Source [id number] 12/11/2020 08:13:00 AM EST CYND[facility] ([facility]) Name Value Range Interpretation Code Description Data Claribel rce(s) Supporting Document(s) bedside glucose 168 mg/dL 70-105 Above high normal Bedside Gluco se CNYDI ([facility]) ID Date Data Source [id number] 12/11/2020 08:13:00 AM EST [facility]ND[facility] ([facility]) Name Value Range Interpretation Code Description Data Claribel rce(s) Supporting Document(s) bedside glucose 168 mg/dL 70-105 Above high normal Bedside Gluco se [facility] ([facility]) ID Date Data Source [id number] 12/11/2020 08:13:00 AM EST [facility] ([facility]) Name Value Range Interpretation Code Description Data Claribel rce(s) Supporting Document(s) bedside glucose 168 mg/dL 70-105 Above high normal [facility] Date Data Source [id number] 12/11/2020 08:13:00 AM EST [facility] ([facility]) Name Value Range Interpretation Code Description Data Claribel rce(s) Supporting Document(s) bedside glucose 168 mg/dL 70-105 Above high normal Bedside Gluco se [facility] ([facility]) ID Date Data Source [id number] 12/11/2020 08:13:00 AM EST [facility] ([facility]) Name Value Range Interpretation Code Description Data Claribel rce(s) Supporting Document(s) bedside glucose 168 mg/dL 70-105 Above high normal Bedside Gluco se [facility] ([facility]) ID Date Data Source [id number] 12/11/2020 07:57:00 AM EST [facility] ([facility]) Name Value Range Interpretation Code Description Data Claribel rce(s) Supporting Document(s) phosphorus level 1.6 mg/dL 2.5-4.9 Below low normal Phosphorus Le karma [facility] ([facility]) ID Date Data Source [id number] 12/11/2020 07:57:00 AM EST [facility] ([facility]) Name Value Range Interpretation Code Description Data Claribel rce(s) Supporting Document(s) glucose, fasting 178 mg/dL 70-100 Above high normal Glucose, Fas ting [facility] ([facility]) blood urea nitrogen 22 mg/dL 7-18 Above high normal Blood Ure a Nitrogen [facility] ([facility]) creatinine for GFR 1.43 mg/dL 0.55-1.30 Above high normal Creatinine for GFR [facility] ([facility]) glomerular filtration rate >60 Below low normal Mariza merular Filtration Rate [facility] ([facility]) sodium level 141 mEq/L 136-145 Sodium Level [facility] ([facility]) chloride level 112 mEq/L 98-107 Above high normal Chloride Level [facility] ([facility]) potassium serum 3.7 mEq/L 3.5-5.1 Potassium Serum ATHE NA ([facility]) carbon dioxide level 17 mEq/L 21-32 Below low normal Carbon Di oxide Level [facility] ([facility]) anion gap 12 mEq/L 8-16 Anion Gap [facility] ([facility]) calcium level 8.8 mg/dL 8.5-10.1 Calcium Level [facility] ( [facility]) ID Date Data Source [id number] 12/11/2020 07:57:00 AM EST [facility] ([facility]) Name Value Range Interpretation Code Description Data Claribel rce(s) Supporting Document(s) phosphorus level 1.6 mg/dL 2.5-4.9 Below low normal Phosphorus Le karma [facility] ([facility]) ID Date Data Source [id number] 12/11/2020 07:57:00 AM EST [facility] ([facility]) Name Value Range Interpretation Code Description Data Claribel rce(s) Supporting Document(s) glucose, fasting 178 mg/dL 70-100 Above high normal Glucose, Fas ting [facility] ([facility]) blood urea nitrogen 22 mg/dL 7-18 Above high normal Blood Ure a Nitrogen [facility] ([facility]) creatinine for GFR 1.43 mg/dL 0.55-1.30 Above high normal Creatinine for GFR [facility] ([facility]) glomerular filtration rate >60 Below low normal Mariza merular Filtration Rate [facility] ([facility]) potassium serum 3.7 mEq/L 3.5-5.1 Potassium Serum ATHE NA ([facility]) sodium level 141 mEq/L 136-145 Sodium Level [facility] ([facility]) chloride level 112 mEq/L 98-107 Above high normal Chloride Level [facility] ([facility]) carbon dioxide level 17 mEq/L 21-32 Below low normal Carbon Di oxide Level [facility] ([facility]) anion gap 12 mEq/L 8-16 Anion Gap [facility] ([facility]) calcium level 8.8 mg/dL 8.5-10.1 Calcium Level [facility] ( [facility]) ID Date Data Source [id number] 12/11/2020 07:57:00 AM EST [facility] ([facility]) Name Value Range Interpretation Code Description Data Claribel rce(s) Supporting Document(s) phosphorus level 1.6 mg/dL 2.5-4.9 Below low normal Phosphorus Le karma [facility] ([facility]) ID Date Data Source [id number] 12/11/2020 07:57:00 AM EST [facility] ([facility]) Name Value Range Interpretation Code Description Data Claribel rce(s) Supporting Document(s) glucose, fasting 178 mg/dL 70-100 Above high normal Glucose, Fas ting [facility] ([facility]) creatinine for GFR 1.43 mg/dL 0.55-1.30 Above high normal Creatinine for GFR [facility] ([facility]) blood urea nitrogen 22 mg/dL 7-18 Above high normal Blood Ure a Nitrogen [facility] ([facility]) glomerular filtration rate >60 Below low normal Mariza merular Filtration Rate [facility] ([facility]) sodium level 141 mEq/L 136-145 Sodium Level [facility] ([facility]) potassium serum 3.7 mEq/L 3.5-5.1 Potassium Serum ATH NA ([facility]) chloride level 112 mEq/L 98-107 Above high normal Chloride Level [facility] ([facility]) carbon dioxide level 17 mEq/L 21-32 Below low normal Carbon Di oxide Level [facility] ([facility]) calcium level 8.8 mg/dL 8.5-10.1 Calcium Level [facility] ( [facility]) anion gap 12 mEq/L 8-16 Anion Gap [facility] ([facility]) ID Date Data Source [id number] 12/11/2020 07:57:00 AM EST [facility] ([facility]) Name Value Range Interpretation Code Description Data Claribel rce(s) Supporting Document(s) phosphorus level 1.6 mg/dL 2.5-4.9 Below low normal Phosphorus Le karma [facility] ([facility]) ID Date Data Source [id number] 12/11/2020 07:57:00 AM EST [facility] ([facility]) Name Value Range Interpretation Code Description Data Claribel rce(s) Supporting Document(s) glucose, fasting 178 mg/dL 70-100 Above high normal Glucose, Fas ting [facility] ([facility]) blood urea nitrogen 22 mg/dL 7-18 Above high normal Blood Ure a Nitrogen [facility] ([facility]) creatinine for GFR 1.43 mg/dL 0.55-1.30 Above high normal Creatinine for GFR [facility] ([facility]) glomerular filtration rate >60 Below low normal Mariza merular Filtration Rate [facility] ([facility]) sodium level 141 mEq/L 136-145 Sodium Level [facility] ([facility]) potassium serum 3.7 mEq/L 3.5-5.1 Potassium Serum ATHE NA ([facility]) chloride level 112 mEq/L 98-107 Above high normal Chloride Level [facility] ([facility]) carbon dioxide level 17 mEq/L 21-32 Below low normal Carbon Di oxide Level [facility] ([facility]) anion gap 12 mEq/L 8-16 Anion Gap [facility] ([facility]) calcium level 8.8 mg/dL 8.5-10.1 Calcium Level [facility] ( [facility]) ID Date Data Source [id number] 12/11/2020 07:57:00 AM EST [facility] ([facility]) Name Value Range Interpretation Code Description Data Claribel rce(s) Supporting Document(s) phosphorus level 1.6 mg/dL 2.5-4.9 Below low normal Phosphorus Le karma [facility] ([facility]) ID Date Data Source [id number] 12/11/2020 07:57:00 AM EST [facility] ([facility]) Name Value Range Interpretation Code Description Data Claribel rce(s) Supporting Document(s) glucose, fasting 178 mg/dL 70-100 Above high normal Glucose, Fas ting [facility] ([facility]) creatinine for GFR 1.43 mg/dL 0.55-1.30 Above high normal Creatinine for GFR [facility] ([facility]) blood urea nitrogen 22 mg/dL 7-18 Above high normal Blood Ure a Nitrogen [facility] ([facility]) glomerular filtration rate >60 Below low normal Mariza merular Filtration Rate [facility] ([facility]) sodium level 141 mEq/L 136-145 Sodium Level [facility] ([facility]) chloride level 112 mEq/L 98-107 Above high normal Chloride Level [facility] ([facility]) potassium serum 3.7 mEq/L 3.5-5.1 Potassium Serum ATHE NA ([facility]) carbon dioxide level 17 mEq/L 21-32 Below low normal Carbon Di oxide Level [facility] ([facility]) anion gap 12 mEq/L 8-16 Anion Gap [facility] ([facility]) calcium level 8.8 mg/dL 8.5-10.1 Calcium Level [facility] ( [facility]) ID Date Data Source [id number] 12/11/2020 07:57:00 AM EST [facility] ([facility]) Name Value Range Interpretation Code Description Data Claribel rce(s) Supporting Document(s) phosphorus level 1.6 mg/dL 2.5-4.9 Below low normal Phosphorus Le karma [facility] ([facility]) ID Date Data Source [id number] 12/11/2020 07:57:00 AM EST [facility] ([facility]) Name Value Range Interpretation Code Description Data Claribel rce(s) Supporting Document(s) glucose, fasting 178 mg/dL 70-100 Above high normal Glucose, Fas ting [facility] ([facility]) creatinine for GFR 1.43 mg/dL 0.55-1.30 Above high normal Creatinine for GFR [facility] ([facility]) blood urea nitrogen 22 mg/dL 7-18 Above high normal Blood Ure a Nitrogen [facility] ([facility]) sodium level 141 mEq/L 136-145 Sodium Level [facility] ([facility]) glomerular filtration rate >60 Below low normal Mariza merular Filtration Rate [facility] ([facility]) potassium serum 3.7 mEq/L 3.5-5.1 Potassium Serum ATHE NA ([facility]) chloride level 112 mEq/L 98-107 Above high normal Chloride Level [facility] ([facility]) anion gap 12 mEq/L 8-16 Anion Gap [facility] ([facility]) carbon dioxide level 17 mEq/L 21-32 Below low normal Carbon Di oxide Level [facility] ([facility]) calcium level 8.8 mg/dL 8.5-10.1 Calcium Level [facility] ( [facility]) ID Date Data Source [id number] 12/11/2020 07:56:00 AM EST [facility] ([facility]) Name Value Range Interpretation Code Description Data Claribel rce(s) Supporting Document(s) venous pH 7.210 units 7.330-7.430 Below low normal Venous pH [facility] ([facility]) venous partial pressure O2 99.3 mmHg 30.0-50.0 Above high nor mal Venous Partial Pressure O2 [facility] ([facility]) venous partial pressure CO2 34.6 mmHg 38.0-50.0 Below low nor mal Venous Partial Pressure CO2 [facility] ([facility]) venous total CO2 14.6 mEq/L 24.0-28.0 Below low normal Venous Total CO2 [facility] ([facility]) venous HCO3 13.5 mEq/L 23.0-27.0 Below low normal Venous HCO3 [facility] ([facility]) venous base excess -2.0-2.0 Below low normal Venous Base Excess [facility] ([facility]) venous standard HCO3 14.2 mEq/L Venous Standard HCO3 [facility] ([facility]) venous O2 saturation 97.8 % 60.0-80.0 Above high normal Venous O 2 Saturation [facility] ([facility]) ID Date Data Source [id number] 12/11/2020 07:56:00 AM EST [facility] ([facility]) Name Value Range Interpretation Code Description Data Claribel rce(s) Supporting Document(s) venous pH 7.210 units 7.330-7.430 Below low normal Venous pH [facility] ([facility]) venous partial pressure CO2 34.6 mmHg 38.0-50.0 Below low nor mal Venous Partial Pressure CO2 [facility] ([facility]) venous partial pressure O2 99.3 mmHg 30.0-50.0 Above high nor mal Venous Partial Pressure O2 [facility] ([facility]) venous total CO2 14.6 mEq/L 24.0-28.0 Below low normal Venous Total CO2 [facility] ([facility]) venous HCO3 13.5 mEq/L 23.0-27.0 Below low normal Venous HCO3 [facility] ([facility]) venous base excess -2.0-2.0 Below low normal Venous Base Excess [facility] ([facility]) venous standard HCO3 14.2 mEq/L Venous Standard HCO3 [facility] ([facility]) venous O2 saturation 97.8 % 60.0-80.0 Above high normal Venous O 2 Saturation [facility] ([facility]) ID Date Data Source [id number] 12/11/2020 07:56:00 AM EST [facility] ([facility]) Name Value Range Interpretation Code Description Data Claribel rce(s) Supporting Document(s) venous pH 7.210 units 7.330-7.430 Below low normal Venous pH [facility] ([facility]) venous partial pressure CO2 34.6 mmHg 38.0-50.0 Below low nor mal Venous Partial Pressure CO2 [facility] ([facility]) venous partial pressure O2 99.3 mmHg 30.0-50.0 Above high nor mal Venous Partial Pressure O2 [facility] ([facility]) venous total CO2 14.6 mEq/L 24.0-28.0 Below low normal Venous Total CO2 [facility] ([facility]) venous HCO3 13.5 mEq/L 23.0-27.0 Below low normal Venous HCO3 [facility] ([facility]) venous standard HCO3 14.2 mEq/L Venous Standard HCO3 [facility] ([facility]) venous base excess -2.0-2.0 Below low normal Venous Base Excess [facility] ([facility]) venous O2 saturation 97.8 % 60.0-80.0 Above high normal Venous O 2 Saturation [facility] ([facility]) ID Date Data Source [id number] 12/11/2020 07:56:00 AM [place] ([facility]) Name Value Range Interpretation Code Description Data Claribel rce(s) Supporting Document(s) venous partial pressure CO2 34.6 mmHg 38.0-50.0 Below low nor mal Venous Partial Pressure CO2 [facility] ([facility]) venous pH 7.210 units 7.330-7.430 Below low normal Venous pH [facility] ([facility]) venous total CO2 14.6 mEq/L 24.0-28.0 Below low normal Venous Total CO2 [facility] ([facility]) venous partial pressure O2 99.3 mmHg 30.0-50.0 Above high nor mal Venous Partial Pressure O2 [facility] ([facility]) venous HCO3 13.5 mEq/L 23.0-27.0 Below low normal Venous HCO3 [facility] ([facility]) venous base excess -2.0-2.0 Below low normal Venous Base Excess [facility] ([facility]) venous standard HCO3 14.2 mEq/L Venous Standard HCO3 [facility] ([facility]) venous O2 saturation 97.8 % 60.0-80.0 Above high normal Venous O 2 Saturation [facility] ([facility]) ID Date Data Source [id number] 12/11/2020 07:56:00 AM EST [facility]NDI ([facility]) Name Value Range Interpretation Code Description Data Claribel rce(s) Supporting Document(s) venous pH 7.210 units 7.330-7.430 Below low normal Venous pH [facility] ([facility]) venous partial pressure O2 99.3 mmHg 30.0-50.0 Above high nor mal Venous Partial Pressure O2 [facility] ([facility]) venous partial pressure CO2 34.6 mmHg 38.0-50.0 Below low nor mal Venous Partial Pressure CO2 [facility] ([facility]) venous total CO2 14.6 mEq/L 24.0-28.0 Below low normal Venous Total CO2 [facility] ([facility]) venous base excess -2.0-2.0 Below low normal Venous Base Excess [facility] ([facility]) venous HCO3 13.5 mEq/L 23.0-27.0 Below low normal Venous HCO3 [facility] ([facility]) venous standard HCO3 14.2 mEq/L Venous Standard HCO3 [facility] ([facility]) venous O2 saturation 97.8 % 60.0-80.0 Above high normal Venous O 2 Saturation [facility] ([facility]) ID Date Data Source [id number] 12/11/2020 07:56:00 AM EST [facility] ([facility]) Name Value Range Interpretation Code Description Data Claribel rce(s) Supporting Document(s) venous pH 7.210 units 7.330-7.430 Below low normal Venous pH [facility] ([facility]) venous partial pressure O2 99.3 mmHg 30.0-50.0 Above high nor mal Venous Partial Pressure O2 [facility] ([facility]) venous partial pressure CO2 34.6 mmHg 38.0-50.0 Below low nor mal Venous Partial Pressure CO2 [facility] ([facility]) venous total CO2 14.6 mEq/L 24.0-28.0 Below low normal Venous Total CO2 [facility] ([facility]) venous base excess -2.0-2.0 Below low normal Venous Base Excess [facility] ([facility]) venous HCO3 13.5 mEq/L 23.0-27.0 Below low normal Venous HCO3 [facility] ([facility]) venous O2 saturation 97.8 % 60.0-80.0 Above high normal Venous O 2 Saturation [facility] ([facility]) venous standard HCO3 14.2 mEq/L Venous Standard HCO3 [facility] ([facility]) ID Date Data Source [id number] 12/11/2020 07:13:00 AM EST [facility]NDI ([facility]) Name Value Range Interpretation Code Description Data Claribel rce(s) Supporting Document(s) bedside glucose 168 mg/dL 70-105 Above high normal Bedside Gluco se [facility]I ([facility]) ID Date Data Source [id number] 12/11/2020 07:13:00 AM EST [facility] ([facility]) Name Value Range Interpretation Code Description Data Claribel rce(s) Supporting Document(s) bedside glucose 168 mg/dL 70-105 Above high normal Bedside Gluco se [facility]I ([facility]) ID Date Data Source [id number] 12/11/2020 07:13:00 AM EST [facility] ([facility]) Name Value Range Interpretation Code Description Data Claribel rce(s) Supporting Document(s) bedside glucose 168 mg/dL 70-105 Above high normal Bedside Gluco se [facility]I ([facility]) ID Date Data Source [id number] 12/11/2020 07:13:00 AM EST [facility] ([facility]) Name Value Range Interpretation Code Description Data Claribel rce(s) Supporting Document(s) bedside glucose 168 mg/dL 70-105 Above high normal Bedside Gluco se [facility]I ([facility]) ID Date Data Source [id number] 12/11/2020 07:13:00 AM EST [facility] ([facility]) Name Value Range Interpretation Code Description Data Claribel rce(s) Supporting Document(s) bedside glucose 168 mg/dL 70-105 Above high normal Bedside Gluco se [facility] ([facility]) ID Date Data Source [id number] 12/11/2020 07:13:00 AM EST [facility] ([facility]) Name Value Range Interpretation Code Description Data Claribel rce(s) Supporting Document(s) bedside glucose 168 mg/dL 70-105 Above high normal Bedside Gluco se [facility]) ID Date Data Source [id number] 12/11/2020 06:29:00 AM EST [facility]) Name Value Range Interpretation Code Description Data Claribel rce(s) Supporting Document(s) bedside glucose 172 mg/dL 70-105 Above high normal Bedside Gluco se [facility] ([facility]) ID Date Data Source [id number] 12/11/2020 06:29:00 AM EST [facility] ([facility]) Name Value Range Interpretation Code Description Data Claribel rce(s) Supporting Document(s) bedside glucose 172 mg/dL 70-105 Above high normal Bedside Gluco se [facility] ([facility]) ID Date Data Source [id number] 12/11/2020 06:29:00 AM EST [facility] ([facility]) Name Value Range Interpretation Code Description Data Claribel rce(s) Supporting Document(s) bedside glucose 172 mg/dL 70-105 Above high normal Bedside Gluco se [facility]) ID Date Data Source [id number] 12/11/2020 06:29:00 AM EST [facility]) Name Value Range Interpretation Code Description Data Claribel rce(s) Supporting Document(s) bedside glucose 172 mg/dL 70-105 Above high normal Bedside Gluco se [facility]) ID Date Data Source [id number] 12/11/2020 06:29:00 AM EST [facility] ([facility]) Name Value Range Interpretation Code Description Data Claribel rce(s) Supporting Document(s) bedside glucose 172 mg/dL 70-105 Above high normal [facility] Date Data Source [id number] 12/11/2020 06:29:00 AM EST [facility]) Name Value Range Interpretation Code Description Data Claribel rce(s) Supporting Document(s) bedside glucose 172 mg/dL 70-105 Above high normal Bedside Gluco se [facility] ([facility]) ID Date Data Source [id number] 12/11/2020 06:26:00 AM EST [facility] ([facility]) Name Value Range Interpretation Code Description Data Claribel rce(s) Supporting Document(s) bedside glucose 116 mg/dL 70-105 Above high normal Bedside Gluco se [facility] ([facility]) ID Date Data Source [id number] 12/11/2020 06:26:00 AM EST [facility] ([facility]) Name Value Range Interpretation Code Description Data Claribel rce(s) Supporting Document(s) bedside glucose 116 mg/dL 70-105 Above high normal Bedside Gluco se [facility] ([facility]) ID Date Data Source [id number] 12/11/2020 06:26:00 AM EST [facility] ([facility]) Name Value Range Interpretation Code Description Data Claribel rce(s) Supporting Document(s) bedside glucose 116 mg/dL 70-105 Above high normal Bedside Gluco se [facility] ([facility]) ID Date Data Source [id number] 12/11/2020 06:26:00 AM EST [facility] ([facility]) Name Value Range Interpretation Code Description Data Claribel rce(s) Supporting Document(s) bedside glucose 116 mg/dL 70-105 Above high normal Bedside Gluco se [facility] ([facility]) ID Date Data Source [id number] 12/11/2020 06:26:00 AM EST [facility] ([facility]) Name Value Range Interpretation Code Description Data Claribel rce(s) Supporting Document(s) bedside glucose 116 mg/dL 70-105 Above high normal Bedside Gluco se [facility] ([facility]) ID Date Data Source [id number] 12/11/2020 06:26:00 AM EST [facility] ([facility]) Name Value Range Interpretation Code Description Data Claribel rce(s) Supporting Document(s) bedside glucose 116 mg/dL 70-105 Above high normal Bedside Gluco se [facility] ([facility]) ID Date Data Source [id number] 12/11/2020 06:00:00 AM EST [facility] ([facility]) Name Value Range Interpretation Code Description Data Claribel rce(s) Supporting Document(s) white blood count 7.7 10 4.0-10.0 White Blood Count [facility] ([facility]) red blood count 3.91 10 4.00-5.40 Below low normal Red Blood Coun t [facility] ([facility]) hemoglobin 11.4 g/dL 12.0-15.5 Below low normal Hemoglobin [facility] ( [facility]) hematocrit 34.1 % 36.0-47.0 Below low normal Hematocrit [facility] ( [facility]) mean corpuscular volume 87.2 fL 80.0-96.0 Mean Corpusc ular Volume [facility] ([facility]) mean corpuscular HGB conc 33.4 g/dL 32.0-36.5 Mean Corpu scular HGB Conc [facility] ([facility]) mean corpuscular hemoglobin 29.2 pg 27.0-33.0 Mean Cor puscular Hemoglobin [facility] ([facility]) red cell distribution width 13.3 % 11.5-14.5 Red Cell Distribution Width [facility] ([facility]) nucleated red blood cell % 0.0 % 0-0 Nucleated Red Blood Cell % [facility] ([facility]) platelet count, automated 229 10 150-450 Platelet C ount, Automated [facility] ([facility]) ID Date Data Source [id number] 12/11/2020 06:00:00 AM EST [facility] ([facility]) Name Value Range Interpretation Code Description Data Claribel rce(s) Supporting Document(s) white blood count 7.7 10 4.0-10.0 White Blood Count [facility] ([facility]) hemoglobin 11.4 g/dL 12.0-15.5 Below low normal Hemoglobin [facility] ( [facility]) red blood count 3.91 10 4.00-5.40 Below low normal Red Blood Coun t [facility] ([facility]) hematocrit 34.1 % 36.0-47.0 Below low normal Hematocrit [facility] ( [facility]) mean corpuscular volume 87.2 fL 80.0-96.0 Mean Corpusc ular Volume [facility] ([facility]) mean corpuscular hemoglobin 29.2 pg 27.0-33.0 Mean Cor puscular Hemoglobin [facility] ([facility]) mean corpuscular HGB conc 33.4 g/dL 32.0-36.5 Mean Corpu scular HGB Conc [facility] ([facility]) red cell distribution width 13.3 % 11.5-14.5 Red Cell Distribution Width [facility] ([facility]) platelet count, automated 229 10 150-450 Platelet C ount, Automated [facility] ([facility]) nucleated red blood cell % 0.0 % 0-0 Nucleated Red Blood Cell % [facility] ([facility]) ID Date Data Source [id number] 12/11/2020 06:00:00 AM EST [facility] ([facility]) Name Value Range Interpretation Code Description Data Claribel rce(s) Supporting Document(s) red blood count 3.91 10 4.00-5.40 Below low normal Red Blood Coun t [facility] ([facility]) white blood count 7.7 10 4.0-10.0 White Blood Count [facility] ([facility]) hemoglobin 11.4 g/dL 12.0-15.5 Below low normal Hemoglobin [facility] ( [facility]) hematocrit 34.1 % 36.0-47.0 Below low normal Hematocrit [facility] ( [facility]) mean corpuscular volume 87.2 fL 80.0-96.0 Mean Corpusc ular Volume [facility] ([facility]) mean corpuscular HGB conc 33.4 g/dL 32.0-36.5 Mean Corpu scular HGB Conc [facility] ([facility]) mean corpuscular hemoglobin 29.2 pg 27.0-33.0 Mean Cor puscular Hemoglobin [facility] ([facility]) platelet count, automated 229 10 150-450 Platelet C ount, Automated [facility] ([facility]) red cell distribution width 13.3 % 11.5-14.5 Red Cell Distribution Width [facility] ([facility]) nucleated red blood cell % 0.0 % 0-0 Nucleated Red Blood Cell % [facility] ([facility]) ID Date Data Source [id number] 12/11/2020 06:00:00 AM EST [facility] ([facility]) Name Value Range Interpretation Code Description Data Claribel rce(s) Supporting Document(s) white blood count 7.7 10 4.0-10.0 White Blood Count [facility] ([facility]) red blood count 3.91 10 4.00-5.40 Below low normal Red Blood Coun t [facility] ([facility]) hemoglobin 11.4 g/dL 12.0-15.5 Below low normal Hemoglobin [facility] ( [facility]) hematocrit 34.1 % 36.0-47.0 Below low normal Hematocrit [facility] ( [facility]) mean corpuscular volume 87.2 fL 80.0-96.0 Mean Corpusc ular Volume [facility] ([facility]) mean corpuscular hemoglobin 29.2 pg 27.0-33.0 Mean Cor puscular Hemoglobin [facility] ([facility]) mean corpuscular HGB conc 33.4 g/dL 32.0-36.5 Mean Corpu scular HGB Conc [facility] ([facility]) platelet count, automated 229 10 150-450 Platelet C ount, Automated [facility] ([facility]) red cell distribution width 13.3 % 11.5-14.5 Red Cell Distribution Width [facility] ([facility]) nucleated red blood cell % 0.0 % 0-0 Nucleated Red Blood Cell % [facility] ([facility]) ID Date Data Source [id number] 12/11/2020 06:00:00 AM EST [facility] ([facility]) Name Value Range Interpretation Code Description Data Claribel rce(s) Supporting Document(s) white blood count 7.7 10 4.0-10.0 White Blood Count [facility] ([facility]) red blood count 3.91 10 4.00-5.40 Below low normal Red Blood Coun t [facility] ([facility]) hemoglobin 11.4 g/dL 12.0-15.5 Below low normal Hemoglobin [facility] ( [facility]) hematocrit 34.1 % 36.0-47.0 Below low normal Hematocrit [facility] ( [facility]) mean corpuscular volume 87.2 fL 80.0-96.0 Mean Corpusc ular Volume [facility] ([facility]) mean corpuscular hemoglobin 29.2 pg 27.0-33.0 Mean Cor puscular Hemoglobin [facility] ([facility]) mean corpuscular HGB conc 33.4 g/dL 32.0-36.5 Mean Corpu scular HGB Conc [facility] ([facility]) red cell distribution width 13.3 % 11.5-14.5 Red Cell Distribution Width [facility] ([facility]) platelet count, automated 229 10 150-450 Platelet C ount, Automated [facility] ([facility]) nucleated red blood cell % 0.0 % 0-0 Nucleated Red Blood Cell % [facility] ([facility]) ID Date Data Source [id number] 12/11/2020 06:00:00 AM EST [facility] ([facility]) Name Value Range Interpretation Code Description Data Claribel rce(s) Supporting Document(s) white blood count 7.7 10 4.0-10.0 White Blood Count [facility] ([facility]) red blood count 3.91 10 4.00-5.40 Below low normal Red Blood Coun t [facility] ([facility]) hemoglobin 11.4 g/dL 12.0-15.5 Below low normal Hemoglobin [facility] ( [facility]) mean corpuscular volume 87.2 fL 80.0-96.0 Mean Corpusc ular Volume [facility] ([facility]) hematocrit 34.1 % 36.0-47.0 Below low normal Hematocrit [facility] ( [facility]) mean corpuscular hemoglobin 29.2 pg 27.0-33.0 Mean Cor puscular Hemoglobin [facility] ([facility]) mean corpuscular HGB conc 33.4 g/dL 32.0-36.5 Mean Corpu scular HGB Conc [facility] ([facility]) red cell distribution width 13.3 % 11.5-14.5 Red Cell Distribution Width [facility] ([facility]) platelet count, automated 229 10 150-450 Platelet C ount, Automated [facility] ([facility]) nucleated red blood cell % 0.0 % 0-0 Nucleated Red Blood Cell % [facility] ([facility]) ID Date Data Source [id number] 12/11/2020 05:26:00 AM EST [facility] ([facility]) Name Value Range Interpretation Code Description Data Claribel rce(s) Supporting Document(s) bedside glucose 208 mg/dL 70-105 Above high normal Bedside Gluco se [facility]) ID Date Data Source [id number] 12/11/2020 05:26:00 AM EST [facility] ([facility]) Name Value Range Interpretation Code Description Data Claribel rce(s) Supporting Document(s) bedside glucose 208 mg/dL 70-105 Above high normal Bedside Gluco se [facility] ([facility]) ID Date Data Source [id number] 12/11/2020 05:26:00 [facility] Name Value Range Interpretation Code Description Data Claribel rce(s) Supporting Document(s) bedside glucose 208 mg/dL 70-105 Above high normal Bedside Gluco se [facility] ([facility]) ID Date Data Source [id number] 12/11/2020 05:26:00 AM EST [facility] ([facility]) Name Value Range Interpretation Code Description Data Claribel rce(s) Supporting Document(s) bedside glucose 208 mg/dL 70-105 Above high normal Bedside Gluco se [facility] ([facility]) ID Date Data Source [id number] 12/11/2020 05:26:00 AM EST [facility] ([facility]) Name Value Range Interpretation Code Description Data Claribel rce(s) Supporting Document(s) bedside glucose 208 mg/dL 70-105 Above high normal Bedside Gluco se [facility] ([facility]) ID Date Data Source [id number] 12/11/2020 05:26:00 AM EST [facility]) Name Value Range Interpretation Code Description Data Claribel rce(s) Supporting Document(s) bedside glucose 208 mg/dL 70-105 Above high normal Bedside Gluco se [facility] ([facility]) ID Date Data Source [id number] 12/11/2020 03:55:00 AM EST [facility]) Name Value Range Interpretation Code Description Data Claribel rce(s) Supporting Document(s) osmolality serum 310 mOsm/kg 275-295 Above high normal Osmolality Serum [facility] ([facility]) ID Date Data Source [id number] 12/11/2020 03:55:00 AM EST [facility] ([facility]) Name Value Range Interpretation Code Description Data Claribel rce(s) Supporting Document(s) phosphorus level 1.5 mg/dL 2.5-4.9 Below low normal Phosphorus Le karma [facility] ([facility]) ID Date Data Source [id number] 12/11/2020 03:55:00 AM EST [facility]) Name Value Range Interpretation Code Description Data Claribel rce(s) Supporting Document(s) glucose, fasting 224 mg/dL 70-100 Above high normal Glucose, Fas ting [facility] ([facility]) blood urea nitrogen 23 mg/dL 7-18 Above high normal Blood Ure a Nitrogen [facility] ([facility]) creatinine for GFR 1.55 mg/dL 0.55-1.30 Above high normal Creatinine for GFR [facility] ([facility]) glomerular filtration rate >60 Below low normal Mariza merular Filtration Rate [facility] ([facility]) sodium level 141 mEq/L 136-145 Sodium Level [facility] ([facility]) potassium serum 4.0 mEq/L 3.5-5.1 Potassium Serum [facility] ([facility]) chloride level 112 mEq/L 98-107 Above high normal Chloride Level [facility] ([facility]) carbon dioxide level 13 mEq/L 21-32 Below low normal Carbon Di oxide Level [facility] ([facility]) anion gap 16 mEq/L 8-16 Anion Gap [facility] ([facility]) calcium level 8.8 mg/dL 8.5-10.1 Calcium Level [facility] ( [facility]) ID Date Data Source [id number] 12/11/2020 03:55:00 AM EST [facility] ([facility]) Name Value Range Interpretation Code Description Data Claribel rce(s) Supporting Document(s) venous pH 7.221 units 7.330-7.430 Below low normal Venous pH [facility] ([facility]) venous partial pressure CO2 30.1 mmHg 38.0-50.0 Below low nor mal Venous Partial Pressure CO2 [facility] ([facility]) venous partial pressure O2 74.2 mmHg 30.0-50.0 Above high nor mal Venous Partial Pressure O2 [facility] ([facility]) venous total CO2 13.0 mEq/L 24.0-28.0 Below low normal Venous Total CO2 [facility] ([facility]) venous HCO3 12.1 mEq/L 23.0-27.0 Below low normal Venous HCO3 [facility] ([facility]) venous base excess -2.0-2.0 Below low normal Venous Base Excess [facility] ([facility]) venous standard HCO3 13.5 mEq/L Venous Standard HCO3 [facility] ([facility]) venous O2 saturation 94.9 % 60.0-80.0 Above high normal Venous O 2 Saturation [facility] ([facility]) ID Date Data Source [id number] 12/11/2020 03:55:00 AM EST [facility] ([facility]) Name Value Range Interpretation Code Description Data Claribel rce(s) Supporting Document(s) osmolality serum 310 mOsm/kg 275-295 Above high normal Osmolality Serum [facility] ([facility]) ID Date Data Source [id number] 12/11/2020 03:55:00 AM EST [facility] ([facility]) Name Value Range Interpretation Code Description Data Claribel rce(s) Supporting Document(s) phosphorus level 1.5 mg/dL 2.5-4.9 Below low normal Phosphorus Le karma [facility] ([facility]) ID Date Data Source [id number] 12/11/2020 03:55:00 AM EST [facility] ([facility]) Name Value Range Interpretation Code Description Data Claribel rce(s) Supporting Document(s) blood urea nitrogen 23 mg/dL 7-18 Above high normal Blood Ure a Nitrogen [facility] ([facility]) glucose, fasting 224 mg/dL 70-100 Above high normal Glucose, Fas ting [facility] ([facility]) creatinine for GFR 1.55 mg/dL 0.55-1.30 Above high normal Creatinine for GFR [facility] ([facility]) sodium level 141 mEq/L 136-145 Sodium Level [facility] ([facility]) glomerular filtration rate >60 Below low normal Mariza merular Filtration Rate [facility] ([facility]) chloride level 112 mEq/L 98-107 Above high normal Chloride Level [facility] ([facility]) potassium serum 4.0 mEq/L 3.5-5.1 Potassium Serum [facility] NA ([facility]) carbon dioxide level 13 mEq/L 21-32 Below low normal Carbon Di oxide Level [facility] ([facility]) calcium level 8.8 mg/dL 8.5-10.1 Calcium Level [facility] ( [facility]) anion gap 16 mEq/L 8-16 Anion Gap [facility] ([facility]) ID Date Data Source [id number] 12/11/2020 03:55:00 AM EST [facility] ([facility]) Name Value Range Interpretation Code Description Data Claribel rce(s) Supporting Document(s) venous pH 7.221 units 7.330-7.430 Below low normal Venous pH [facility] ([facility]) venous partial pressure CO2 30.1 mmHg 38.0-50.0 Below low nor mal Venous Partial Pressure CO2 [facility] ([facility]) venous total CO2 13.0 mEq/L 24.0-28.0 Below low normal Venous Total CO2 [facility] ([facility]) venous partial pressure O2 74.2 mmHg 30.0-50.0 Above high nor mal Venous Partial Pressure O2 [facility] ([facility]) venous HCO3 12.1 mEq/L 23.0-27.0 Below low normal Venous HCO3 [facility] ([facility]) venous standard HCO3 13.5 mEq/L Venous Standard HCO3 [facility] ([facility]) venous base excess -2.0-2.0 Below low normal Venous Base Excess [facility] ([facility]) venous O2 saturation 94.9 % 60.0-80.0 Above high normal Venous O 2 Saturation [facility] ([facility]) ID Date Data Source [id number] 12/11/2020 03:55:00 AM EST [facility] ([facility]) Name Value Range Interpretation Code Description Data Claribel rce(s) Supporting Document(s) osmolality serum 310 mOsm/kg 275-295 Above high normal Osmolality Serum [facility] ([facility]) ID Date Data Source [id number] 12/11/2020 03:55:00 AM EST [facility] ([facility]) Name Value Range Interpretation Code Description Data Claribel rce(s) Supporting Document(s) phosphorus level 1.5 mg/dL 2.5-4.9 Below low normal Phosphorus Le karma [facility] ([facility]) ID Date Data Source [id number] 12/11/2020 03:55:00 AM [place] ([facility]) Name Value Range Interpretation Code Description Data Claribel rce(s) Supporting Document(s) glucose, fasting 224 mg/dL 70-100 Above high normal Glucose, Fas ting [facility] ([facility]) blood urea nitrogen 23 mg/dL 7-18 Above high normal Blood Ure a Nitrogen [facility] ([facility]) creatinine for GFR 1.55 mg/dL 0.55-1.30 Above high normal Creatinine for GFR [facility] ([facility]) glomerular filtration rate >60 Below low normal Mariza merular Filtration Rate [facility] ([facility]) potassium serum 4.0 mEq/L 3.5-5.1 Potassium Serum [facility] NA ([facility]) sodium level 141 mEq/L 136-145 Sodium Level [facility] ([facility]) chloride level 112 mEq/L 98-107 Above high normal Chloride Level [facility] ([facility]) anion gap 16 mEq/L 8-16 Anion Gap [facility] ([facility]) carbon dioxide level 13 mEq/L 21-32 Below low normal Carbon Di oxide Level [facility] ([facility]) calcium level 8.8 mg/dL 8.5-10.1 Calcium Level [facility] ( [facility]) ID Date Data Source [id number] 12/11/2020 03:55:00 AM EST [facility] ([facility]) Name Value Range Interpretation Code Description Data Claribel rce(s) Supporting Document(s) venous pH 7.221 units 7.330-7.430 Below low normal Venous pH [facility] ([facility]) venous partial pressure O2 74.2 mmHg 30.0-50.0 Above high nor mal Venous Partial Pressure O2 [facility] ([facility]) venous partial pressure CO2 30.1 mmHg 38.0-50.0 Below low nor mal Venous Partial Pressure CO2 [facility] ([facility]) venous HCO3 12.1 mEq/L 23.0-27.0 Below low normal Venous HCO3 [facility] ([facility]) venous total CO2 13.0 mEq/L 24.0-28.0 Below low normal Venous Total CO2 [facility] ([facility]) venous base excess -2.0-2.0 Below low normal Venous Base Excess [facility] ([facility]) venous standard HCO3 13.5 mEq/L Venous Standard HCO3 [facility] ([facility]) venous O2 saturation 94.9 % 60.0-80.0 Above high normal Venous O 2 Saturation [facility] ([facility]) ID Date Data Source [id number] 12/11/2020 03:55:00 AM EST [facility] ([facility]) Name Value Range Interpretation Code Description Data Claribel rce(s) Supporting Document(s) osmolality serum 310 mOsm/kg 275-295 Above high normal Osmolality Serum [facility] ([facility]) ID Date Data Source [id number] 12/11/2020 03:55:00 AM EST [facility] ([facility]) Name Value Range Interpretation Code Description Data Claribel rce(s) Supporting Document(s) phosphorus level 1.5 mg/dL 2.5-4.9 Below low normal Phosphorus Le karma [facility] ([facility]) ID Date Data Source [id number] 12/11/2020 03:55:00 AM EST [facility] ([facility]) Name Value Range Interpretation Code Description Data Claribel rce(s) Supporting Document(s) glucose, fasting 224 mg/dL 70-100 Above high normal Glucose, Fas ting [facility] ([facility]) blood urea nitrogen 23 mg/dL 7-18 Above high normal Blood Ure a Nitrogen [facility] ([facility]) glomerular filtration rate >60 Below low normal Mariza merular Filtration Rate [facility] ([facility]) creatinine for GFR 1.55 mg/dL 0.55-1.30 Above high normal Creatinine for GFR [facility] ([facility]) sodium level 141 mEq/L 136-145 Sodium Level [facility] ([facility]) potassium serum 4.0 mEq/L 3.5-5.1 Potassium Serum ATHE NA ([facility]) chloride level 112 mEq/L 98-107 Above high normal Chloride Level [facility] ([facility]) carbon dioxide level 13 mEq/L 21-32 Below low normal Carbon Di oxide Level [facility] ([facility]) anion gap 16 mEq/L 8-16 Anion Gap [facility] ([facility]) calcium level 8.8 mg/dL 8.5-10.1 Calcium Level [facility] ( [facility]) ID Date Data Source [id number] 12/11/2020 03:55:00 AM EST [facility] ([facility]) Name Value Range Interpretation Code Description Data Claribel rce(s) Supporting Document(s) venous pH 7.221 units 7.330-7.430 Below low normal Venous pH [facility] ([facility]) venous partial pressure CO2 30.1 mmHg 38.0-50.0 Below low nor mal Venous Partial Pressure CO2 [facility] ([facility]) venous partial pressure O2 74.2 mmHg 30.0-50.0 Above high nor mal Venous Partial Pressure O2 [facility] ([facility]) venous total CO2 13.0 mEq/L 24.0-28.0 Below low normal Venous Total CO2 [facility] ([facility]) venous HCO3 12.1 mEq/L 23.0-27.0 Below low normal Venous HCO3 [facility] ([facility]) venous base excess -2.0-2.0 Below low normal Venous Base Excess [facility] ([facility]) venous standard HCO3 13.5 mEq/L Venous Standard HCO3 [facility] ([facility]) venous O2 saturation 94.9 % 60.0-80.0 Above high normal [facility]ous [facility] ID Date Data Source [id number] 12/11/2020 03:55:00 AM EST [facility] ([facility]) Name Value Range Interpretation Code Description Data Claribel rce(s) Supporting Document(s) osmolality serum 310 mOsm/kg 275-295 Above high normal Osmolality Serum [facility] ([facility]) ID Date Data Source [id number] 12/11/2020 03:55:00 AM EST [facility] ([facility]) Name Value Range Interpretation Code Description Data Claribel rce(s) Supporting Document(s) phosphorus level 1.5 mg/dL 2.5-4.9 Below low normal Phosphorus Le karma [facility] ([facility]) ID Date Data Source [id number] 12/11/2020 03:55:00 AM EST [facility] ([facility]) Name Value Range Interpretation Code Description Data Claribel rce(s) Supporting Document(s) glucose, fasting 224 mg/dL 70-100 Above high normal Glucose, Fas ting [facility] ([facility]) blood urea nitrogen 23 mg/dL 7-18 Above high normal Blood Ure a Nitrogen [facility] ([facility]) creatinine for GFR 1.55 mg/dL 0.55-1.30 Above high normal Creatinine for GFR [facility] ([facility]) glomerular filtration rate >60 Below low normal Mariza merular Filtration Rate [facility] ([facility]) sodium level 141 mEq/L 136-145 Sodium Level [facility] ([facility]) potassium serum 4.0 mEq/L 3.5-5.1 Potassium Serum ATHE NA ([facility]) carbon dioxide level 13 mEq/L 21-32 Below low normal Carbon Di oxide Level [facility] ([facility]) chloride level 112 mEq/L 98-107 Above high normal Chloride Level [facility] ([facility]) anion gap 16 mEq/L 8-16 Anion Gap [facility] ([facility]) calcium level 8.8 mg/dL 8.5-10.1 Calcium Level [facility] ( [facility]) ID Date Data Source [id number] 12/11/2020 03:55:00 AM EST [facility] ([facility]) Name Value Range Interpretation Code Description Data Claribel rce(s) Supporting Document(s) venous pH 7.221 units 7.330-7.430 Below low normal Venous pH [facility] ([facility]) venous partial pressure CO2 30.1 mmHg 38.0-50.0 Below low nor mal Venous Partial Pressure CO2 [facility] ([facility]) venous total CO2 13.0 mEq/L 24.0-28.0 Below low normal Venous Total CO2 [facility] ([facility]) venous partial pressure O2 74.2 mmHg 30.0-50.0 Above high nor mal Venous Partial Pressure O2 [facility] ([facility]) venous HCO3 12.1 mEq/L 23.0-27.0 Below low normal Venous HCO3 [facility] ([facility]) venous base excess -2.0-2.0 Below low normal Venous Base Excess [facility] ([facility]) venous standard HCO3 13.5 mEq/L Venous Standard HCO3 [facility] ([facility]) venous O2 saturation 94.9 % 60.0-80.0 Above high normal Venous O 2 Saturation [facility] ([facility]) ID Date Data Source [id number] 12/11/2020 03:55:00 AM EST [facility] ([facility]) Name Value Range Interpretation Code Description Data Claribel rce(s) Supporting Document(s) osmolality serum 310 mOsm/kg 275-295 Above high normal Osmolality Serum [facility]) ID Date Data Source [id number] 12/11/2020 03:55:00 AM EST [facility]) Name Value Range Interpretation Code Description Data Claribel rce(s) Supporting Document(s) phosphorus level 1.5 mg/dL 2.5-4.9 Below low normal Phosphorus Le karma [facility] ([facility]) ID Date Data Source [id number] 12/11/2020 03:55:00 AM EST [facility] ([facility]) Name Value Range Interpretation Code Description Data Claribel rce(s) Supporting Document(s) glucose, fasting 224 mg/dL 70-100 Above high normal Glucose, Fas ting [facility] ([facility]) blood urea nitrogen 23 mg/dL 7-18 Above high normal Blood Ure a Nitrogen [facility] ([facility]) creatinine for GFR 1.55 mg/dL 0.55-1.30 Above high normal Creatinine for GFR [facility] ([facility]) sodium level 141 mEq/L 136-145 Sodium Level [facility] ([facility]) glomerular filtration rate >60 Below low normal Mariza merular Filtration Rate [facility] ([facility]) potassium serum 4.0 mEq/L 3.5-5.1 Potassium Serum ATHE NA ([facility]) carbon dioxide level 13 mEq/L 21-32 Below low normal Carbon Di oxide Level [facility] ([facility]) chloride level 112 mEq/L 98-107 Above high normal Chloride Level [facility] ([facility]) anion gap 16 mEq/L 8-16 Anion Gap [facility] ([facility]) calcium level 8.8 mg/dL 8.5-10.1 Calcium Level [facility] ( [facility]) ID Date Data Source [id number] 12/11/2020 03:55:00 AM EST [facility] ([facility]) Name Value Range Interpretation Code Description Data Claribel rce(s) Supporting Document(s) venous pH 7.221 units 7.330-7.430 Below low normal Venous pH [facility] ([facility]) venous partial pressure CO2 30.1 mmHg 38.0-50.0 Below low nor mal Venous Partial Pressure CO2 [facility] ([facility]) venous partial pressure O2 74.2 mmHg 30.0-50.0 Above high nor mal Venous Partial Pressure O2 [facility] ([facility]) venous total CO2 13.0 mEq/L 24.0-28.0 Below low normal Venous Total CO2 [facility] ([facility]) venous HCO3 12.1 mEq/L 23.0-27.0 Below low normal Venous HCO3 [facility] ([facility]) venous base excess -2.0-2.0 Below low normal Venous Base Excess [facility] ([facility]) venous standard HCO3 13.5 mEq/L Venous Standard HCO3 [facility] ([facility]) venous O2 saturation 94.9 % 60.0-80.0 Above high normal Venous O 2 Saturation [facility] ([facility]) ID Date Data Source [id number] 12/11/2020 03:50:00 AM EST [facility] ([facility]) Name Value Range Interpretation Code Description Data Claribel rce(s) Supporting Document(s) bedside glucose 218 mg/dL 70-105 Above high normal Bedside Gluco se [facility] ([facility]) ID Date Data Source [id number] 12/11/2020 03:50:00 AM EST [facility] ([facility]) Name Value Range Interpretation Code Description Data Claribel rce(s) Supporting Document(s) bedside glucose 218 mg/dL 70-105 Above high normal Bedside Gluco se [facility]) ID Date Data Source [id number] 12/11/2020 03:50:00 AM EST [facility]) Name Value Range Interpretation Code Description Data Claribel rce(s) Supporting Document(s) bedside glucose 218 mg/dL 70-105 Above high normal Bedside Gluco se [facility]) ID Date Data Source [id number] 12/11/2020 03:50:00 AM [facility] Name Value Range Interpretation Code Description Data Claribel rce(s) Supporting Document(s) bedside glucose 218 mg/dL 70-105 Above high normal Bedside Gluco se [facility] ([facility]) ID Date Data Source [id number] 12/11/2020 03:50:00 AM EST [facility] Name Value Range Interpretation Code Description Data Claribel rce(s) Supporting Document(s) bedside glucose 218 mg/dL 70-105 Above high normal [facility]side [facility]uco se [facility] ID Date Data Source [id number] 12/11/2020 03:50:00 AM EST [facility] ([facility]) Name Value Range Interpretation Code Description Data Claribel rce(s) Supporting Document(s) bedside glucose 218 mg/dL 70-105 Above high normal Bedside Gluco se [facility] ([facility]) ID Date Data Source [id number] 12/11/2020 03:02:00 AM EST [facility] ([facility]) Name Value Range Interpretation Code Description Data Claribel rce(s) Supporting Document(s) bedside glucose 230 mg/dL 70-105 Above high normal Bedside Gluco se [facility] ([facility]) ID Date Data Source [id number] 12/11/2020 03:02:00 AM EST [facility] ([facility]) Name Value Range Interpretation Code Description Data Claribel rce(s) Supporting Document(s) bedside glucose 230 mg/dL 70-105 Above high normal Bedside Gluco se [facility] ([facility]) ID Date Data Source [id number] 12/11/2020 03:02:00 AM EST [facility]) Name Value Range Interpretation Code Description Data Claribel rce(s) Supporting Document(s) bedside glucose 230 mg/dL 70-105 Above high normal Bedside Gluco se [facility] ([facility]) ID Date Data Source [id number] 12/11/2020 03:02:00 AM EST [facility] ([facility]) Name Value Range Interpretation Code Description Data Claribel rce(s) Supporting Document(s) bedside glucose 230 mg/dL 70-105 Above high normal [facility] ID Date Data Source [id number] 12/11/2020 03:02:00 AM EST [facility]) Name Value Range Interpretation Code Description Data Claribel rce(s) Supporting Document(s) bedside glucose 230 mg/dL 70-105 Above high normal Bedside Gluco se [facility] ([facility]) ID Date Data Source [id number] 12/11/2020 03:02:00 AM EST [facility] ([facility]) Name Value Range Interpretation Code Description Data Claribel rce(s) Supporting Document(s) bedside glucose 230 mg/dL 70-105 Above high normal Bedside Gluco se [facility] ([facility]) ID Date Data Source [id number] 12/11/2020 02:11:00 AM EST [facility] ([facility]) Name Value Range Interpretation Code Description Data Claribel rce(s) Supporting Document(s) bedside glucose 211 mg/dL 70-105 Above high normal Bedside Gluco se [facility]) ID Date Data Source [id number] 12/11/2020 02:11:00 AM EST [facility]) Name Value Range Interpretation Code Description Data Claribel rce(s) Supporting Document(s) bedside glucose 211 mg/dL 70-105 Above high normal Bedside Gluco se [facility]) ID Date Data Source [id number] 12/11/2020 02:11:00 AM EST [facility] ([facility]) Name Value Range Interpretation Code Description Data Claribel rce(s) Supporting Document(s) bedside glucose 211 mg/dL 70-105 Above high normal Bedside Gluco se [facility] ([facility]) ID Date Data Source [id number] 12/11/2020 02:11:00 AM EST [facility]) Name Value Range Interpretation Code Description Data Claribel rce(s) Supporting Document(s) bedside glucose 211 mg/dL 70-105 Above high normal [facility] ID Date Data Source [id number] 12/11/2020 02:11:00 AM EST [facility] ([facility]) Name Value Range Interpretation Code Description Data Claribel rce(s) Supporting Document(s) bedside glucose 211 mg/dL 70-105 Above high normal Bedside Gluco se [facility] ([facility]) ID Date Data Source [id number] 12/11/2020 02:11:00 AM EST [facility] ([facility]) Name Value Range Interpretation Code Description Data Claribel rce(s) Supporting Document(s) bedside glucose 211 mg/dL 70-105 Above high normal Bedside Gluco se [facility] ([facility]) ID Date Data Source [id number] 12/11/2020 01:06:00 AM EST [facility] ([facility]) Name Value Range Interpretation Code Description Data Claribel rce(s) Supporting Document(s) potassium random urine 55.4 mEq/L Potassium Ran dom Urine [facility] ([facility]) ID Date Data Source [id number] 12/11/2020 01:06:00 AM EST [facility] ([facility]) Name Value Range Interpretation Code Description Data Claribel rce(s) Supporting Document(s) sodium,random urine 35 mEq/L Sodium,random Ur ine [facility] ([facility]) ID Date Data Source [id number] 12/11/2020 01:06:00 AM EST [facility] ([facility]) Name Value Range Interpretation Code Description Data Claribel rce(s) Supporting Document(s) creatinine,random urine 127.0 mg/dL Creatinine, random Urine [facility] ([facility]) ID Date Data Source [id number] 12/11/2020 01:06:00 AM EST [facility] ([facility]) Name Value Range Interpretation Code Description Data Claribel rce(s) Supporting Document(s) urea nitrogen random urine 622 mg/dL Urea Nitr ogen Random Urine [facility] ([facility]) ID Date Data Source [id number] 12/11/2020 01:06:00 AM EST [facility] ([facility]) Name Value Range Interpretation Code Description Data Claribel rce(s) Supporting Document(s) potassium random urine 55.4 mEq/L Potassium Ran dom Urine [facility] ([facility]) ID Date Data Source [id number] 12/11/2020 01:06:00 AM EST [facility] ([facility]) Name Value Range Interpretation Code Description Data Claribel rce(s) Supporting Document(s) sodium,random urine 35 mEq/L Sodium,random Ur ine [facility] ([facility]) ID Date Data Source [id number] 12/11/2020 01:06:00 AM EST [facility] ([facility]) Name Value Range Interpretation Code Description Data Claribel rce(s) Supporting Document(s) creatinine,random urine 127.0 mg/dL Creatinine, random Urine [facility] ([facility]) ID Date Data Source [id number] 12/11/2020 01:06:00 AM EST [facility] ([facility]) Name Value Range Interpretation Code Description Data Claribel rce(s) Supporting Document(s) urea nitrogen random urine 622 mg/dL Urea Nitr ogen Random Urine [facility] ([facility]) ID Date Data Source [id number] 12/11/2020 01:06:00 AM EST [facility] ([facility]) Name Value Range Interpretation Code Description Data Claribel rce(s) Supporting Document(s) potassium random urine 55.4 mEq/L Potassium Ran dom Urine [facility] ([facility]) ID Date Data Source [id number] 12/11/2020 01:06:00 AM EST [facility] ([facility]) Name Value Range Interpretation Code Description Data Claribel rce(s) Supporting Document(s) sodium,random urine 35 mEq/L Sodium,random Ur ine [facility] ([facility]) ID Date Data Source [id number] 12/11/2020 01:06:00 AM EST [facility] ([facility]) Name Value Range Interpretation Code Description Data Claribel rce(s) Supporting Document(s) creatinine,random urine 127.0 mg/dL Creatinine, random Urine [facility] ([facility]) ID Date Data Source [id number] 12/11/2020 01:06:00 AM EST [facility] ([facility]) Name Value Range Interpretation Code Description Data Claribel rce(s) Supporting Document(s) urea nitrogen random urine 622 mg/dL Urea Nitr ogen Random Urine [facility] ([facility]) ID Date Data Source [id number] 12/11/2020 01:06:00 AM EST [facility] ([facility]) Name Value Range Interpretation Code Description Data Claribel rce(s) Supporting Document(s) potassium random urine 55.4 mEq/L Potassium Ran dom Urine [facility] ([facility]) ID Date Data Source [id number] 12/11/2020 01:06:00 AM EST [facility] ([facility]) Name Value Range Interpretation Code Description Data Claribel rce(s) Supporting Document(s) sodium,random urine 35 mEq/L Sodium,random Ur ine [facility] ([facility]) ID Date Data Source [id number] 12/11/2020 01:06:00 AM EST [facility] ([facility]) Name Value Range Interpretation Code Description Data Claribel rce(s) Supporting Document(s) creatinine,random urine 127.0 mg/dL Creatinine, random Urine [facility] ([facility]) ID Date Data Source [id number] 12/11/2020 01:06:00 AM EST [facility] ([facility]) Name Value Range Interpretation Code Description Data Claribel rce(s) Supporting Document(s) urea nitrogen random urine 622 mg/dL Urea Nitr ogen Random Urine [facility] ([facility]) ID Date Data Source [id number] 12/11/2020 01:06:00 AM EST [facility] ([facility]) Name Value Range Interpretation Code Description Data Claribel rce(s) Supporting Document(s) potassium random urine 55.4 mEq/L Potassium Ran dom Urine [facility] ([facility]) ID Date Data Source [id number] 12/11/2020 01:06:00 AM EST [facility] ([facility]) Name Value Range Interpretation Code Description Data Claribel rce(s) Supporting Document(s) sodium,random urine 35 mEq/L Sodium,random Ur ine [facility] ([facility]) ID Date Data Source [id number] 12/11/2020 01:06:00 AM EST [facility] ([facility]) Name Value Range Interpretation Code Description Data Claribel rce(s) Supporting Document(s) creatinine,random urine 127.0 mg/dL Creatinine, random Urine [facility] ([facility]) ID Date Data Source [id number] 12/11/2020 01:06:00 AM EST [facility] ([facility]) Name Value Range Interpretation Code Description Data Claribel rce(s) Supporting Document(s) urea nitrogen random urine 622 mg/dL Urea Nitr ogen Random Urine [facility] ([facility]) ID Date Data Source [id number] 12/11/2020 01:06:00 AM EST [facility] ([facility]) Name Value Range Interpretation Code Description Data Claribel rce(s) Supporting Document(s) potassium random urine 55.4 mEq/L Potassium Ran dom Urine CNYDI ([facility]) ID Date Data Source [id number] 12/11/2020 01:06:00 AM EST [facility] ([facility]) Name Value Range Interpretation Code Description Data Claribel rce(s) Supporting Document(s) sodium,random urine 35 mEq/L Sodium,random Ur ine [facility] ([facility]) ID Date Data Source [id number] 12/11/2020 01:06:00 AM EST [facility] ([facility]) Name Value Range Interpretation Code Description Data Claribel rce(s) Supporting Document(s) creatinine,random urine 127.0 mg/dL Creatinine, random Urine [facility] ([facility]) ID Date Data Source [id number] 12/11/2020 01:06:00 AM EST [facility] ([facility]) Name Value Range Interpretation Code Description Data Claribel rce(s) Supporting Document(s) urea nitrogen random urine 622 mg/dL Urea Nitr ogen Random Urine [facility] ([facility]) ID Date Data Source [id number] 12/11/2020 12:48:00 AM EST [facility] ([facility]) Name Value Range Interpretation Code Description Data Claribel rce(s) Supporting Document(s) bedside glucose 135 mg/dL 70-105 Above high normal Bedside Gluco se [facility] ([facility]) ID Date Data Source [id number] 12/11/2020 12:48:00 AM EST [facility] ([facility]) Name Value Range Interpretation Code Description Data Claribel rce(s) Supporting Document(s) bedside glucose 135 mg/dL 70-105 Above high normal Bedside Gluco se [facility] ([facility]) ID Date Data Source [id number] 12/11/2020 12:48:00 AM EST [facility] ([facility]) Name Value Range Interpretation Code Description Data Claribel rce(s) Supporting Document(s) bedside glucose 135 mg/dL 70-105 Above high normal Bedside Gluco se [facility] ([facility]) ID Date Data Source [id number] 12/11/2020 12:48:00 AM EST [facility] ([facility]) Name Value Range Interpretation Code Description Data Claribel rce(s) Supporting Document(s) bedside glucose 135 mg/dL 70-105 Above high normal Bedside Gluco se [facility] ([facility]) ID Date Data Source [id number] 12/11/2020 12:48:00 AM EST [facility] ([facility]) Name Value Range Interpretation Code Description Data Claribel rce(s) Supporting Document(s) bedside glucose 135 mg/dL 70-105 Above high normal Bedside Gluco se [facility] ([facility]) ID Date Data Source [id number] 12/11/2020 12:48:00 AM EST [facility]) Name Value Range Interpretation Code Description Data Claribel rce(s) Supporting Document(s) bedside glucose 135 mg/dL 70-105 Above high normal Bedside Gluco se [facility] ([facility]) ID Date Data Source [id number] 12/11/2020 12:18:00 AM EST [facility] ([facility]) Name Value Range Interpretation Code Description Data Claribel rce(s) Supporting Document(s) osmolality serum 311 mOsm/kg 275-295 Above high normal Osmolality Serum [facility]) ID Date Data Source [id number] 12/11/2020 12:18:00 AM EST [facility] ([facility]) Name Value Range Interpretation Code Description Data Claribel rce(s) Supporting Document(s) phosphorus level 2.4 mg/dL 2.5-4.9 Below low normal Phosphorus Le karma [facility] ([facility]) ID Date Data Source [id number] 12/11/2020 12:18:00 AM EST [facility] ([facility]) Name Value Range Interpretation Code Description Data Claribel rce(s) Supporting Document(s) glucose, fasting 129 mg/dL 70-100 Above high normal Glucose, Fas ting [facility] ([facility]) blood urea nitrogen 26 mg/dL 7-18 Above high normal Blood Ure a Nitrogen [facility] ([facility]) creatinine for GFR 1.51 mg/dL 0.55-1.30 Above high normal Creatinine for GFR [facility] ([facility]) glomerular filtration rate >60 Below low normal Mariza merular Filtration Rate [facility] ([facility]) sodium level 142 mEq/L 136-145 Sodium Level [facility] ([facility]) potassium serum 4.4 mEq/L 3.5-5.1 Potassium Serum ATHE NA ([facility]) chloride level 114 mEq/L 98-107 Above high normal Chloride Level [facility] ([facility]) carbon dioxide level 11 mEq/L 21-32 Below low normal Carbon Di oxide Level [facility] ([facility]) anion gap 17 mEq/L 8-16 Above high normal Anion Gap [facility] ([facility]) calcium level 9.4 mg/dL 8.5-10.1 Calcium Level [facility] ( [facility]) ID Date Data Source [id number] 12/11/2020 12:18:00 AM EST [facility] ([facility]) Name Value Range Interpretation Code Description Data Claribel rce(s) Supporting Document(s) venous pH 7.171 units 7.330-7.430 Below low normal Venous pH [facility] ([facility]) venous partial pressure CO2 26.9 mmHg 38.0-50.0 Below low nor mal Venous Partial Pressure CO2 [facility] ([facility]) venous partial pressure O2 98.1 mmHg 30.0-50.0 Above high nor mal Venous Partial Pressure O2 [facility] ([facility]) venous total CO2 10.4 mEq/L 24.0-28.0 Below low normal Venous Total CO2 [facility] ([facility]) venous HCO3 9.6 mEq/L 23.0-27.0 Below low normal Venous HCO3 [facility] ([facility]) venous base excess -2.0-2.0 Below low normal Venous Base Excess [facility] ([facility]) venous standard HCO3 11.7 mEq/L Venous Standard HCO3 [facility] ([facility]) venous O2 saturation 97.6 % 60.0-80.0 Above high normal Venous O 2 Saturation [facility] ([facility]) ID Date Data Source [id number] 12/11/2020 12:18:00 AM EST [facility] ([facility]) Name Value Range Interpretation Code Description Data Claribel rce(s) Supporting Document(s) osmolality serum 311 mOsm/kg 275-295 Above high normal Osmolality Serum [facility] ([facility]) ID Date Data Source [id number] 12/11/2020 12:18:00 AM EST [facility] ([facility]) Name Value Range Interpretation Code Description Data Claribel rce(s) Supporting Document(s) phosphorus level 2.4 mg/dL 2.5-4.9 Below low normal Phosphorus Le karma [facility] ([facility]) ID Date Data Source [id number] 12/11/2020 12:18:00 AM EST [facility] ([facility]) Name Value Range Interpretation Code Description Data Claribel rce(s) Supporting Document(s) glucose, fasting 129 mg/dL 70-100 Above high normal Glucose, Fas ting [facility] ([facility]) blood urea nitrogen 26 mg/dL 7-18 Above high normal Blood Ure a Nitrogen [facility] ([facility]) creatinine for GFR 1.51 mg/dL 0.55-1.30 Above high normal Creatinine for GFR [facility] ([facility]) glomerular filtration rate >60 Below low normal Mariza merular Filtration Rate [facility] ([facility]) potassium serum 4.4 mEq/L 3.5-5.1 Potassium Serum ATHE NA ([facility]) sodium level 142 mEq/L 136-145 Sodium Level [facility] ([facility]) chloride level 114 mEq/L 98-107 Above high normal Chloride Level [facility] ([facility]) carbon dioxide level 11 mEq/L 21-32 Below low normal Carbon Di oxide Level [facility] ([facility]) anion gap 17 mEq/L 8-16 Above high normal Anion Gap [facility] ([facility]) calcium level 9.4 mg/dL 8.5-10.1 Calcium Level [facility] ( [facility]) ID Date Data Source [id number] 12/11/2020 12:18:00 AM EST [facility] ([facility]) Name Value Range Interpretation Code Description Data Claribel rce(s) Supporting Document(s) venous partial pressure CO2 26.9 mmHg 38.0-50.0 Below low nor mal Venous Partial Pressure CO2 [facility] ([facility]) venous pH 7.171 units 7.330-7.430 Below low normal Venous pH [facility] ([facility]) venous partial pressure O2 98.1 mmHg 30.0-50.0 Above high nor mal Venous Partial Pressure O2 [facility] ([facility]) venous total CO2 10.4 mEq/L 24.0-28.0 Below low normal Venous Total CO2 [facility] ([facility]) venous base excess -2.0-2.0 Below low normal Venous Base Excess [facility] ([facility]) venous HCO3 9.6 mEq/L 23.0-27.0 Below low normal Venous HCO3 [facility] ([facility]) venous standard HCO3 11.7 mEq/L Venous Standard HCO3 [facility] ([facility]) venous O2 saturation 97.6 % 60.0-80.0 Above high normal Venous O 2 Saturation [facility] ([facility]) ID Date Data Source [id number] 12/11/2020 12:18:00 AM EST [facility] ([facility]) Name Value Range Interpretation Code Description Data Claribel rce(s) Supporting Document(s) osmolality serum 311 mOsm/kg 275-295 Above high normal Osmolality Serum [facility] ([facility]) ID Date Data Source [id number] 12/11/2020 12:18:00 AM EST [facility] ([facility]) Name Value Range Interpretation Code Description Data Claribel rce(s) Supporting Document(s) phosphorus level 2.4 mg/dL 2.5-4.9 Below low normal Phosphorus Le karma [facility] ([facility]) ID Date Data Source [id number] 12/11/2020 12:18:00 AM EST [facility] ([facility]) Name Value Range Interpretation Code Description Data Claribel rce(s) Supporting Document(s) glucose, fasting 129 mg/dL 70-100 Above high normal Glucose, Fas ting [facility] ([facility]) blood urea nitrogen 26 mg/dL 7-18 Above high normal Blood Ure a Nitrogen [facility] ([facility]) creatinine for GFR 1.51 mg/dL 0.55-1.30 Above high normal Creatinine for GFR [facility] ([facility]) glomerular filtration rate >60 Below low normal Mariza merular Filtration Rate [facility] ([facility]) sodium level 142 mEq/L 136-145 Sodium Level [facility] ([facility]) potassium serum 4.4 mEq/L 3.5-5.1 Potassium Serum ATHE NA ([facility]) chloride level 114 mEq/L 98-107 Above high normal Chloride Level [facility] ([facility]) carbon dioxide level 11 mEq/L 21-32 Below low normal Carbon Di oxide Level [facility] ([facility]) anion gap 17 mEq/L 8-16 Above high normal Anion Gap [facility] ([facility]) calcium level 9.4 mg/dL 8.5-10.1 Calcium Level [facility] ( [facility]) ID Date Data Source [id number] 12/11/2020 12:18:00 AM EST [facility] ([facility]) Name Value Range Interpretation Code Description Data Claribel rce(s) Supporting Document(s) venous partial pressure CO2 26.9 mmHg 38.0-50.0 Below low nor mal Venous Partial Pressure CO2 [facility] ([facility]) venous pH 7.171 units 7.330-7.430 Below low normal Venous pH [facility] ([facility]) venous partial pressure O2 98.1 mmHg 30.0-50.0 Above high nor mal Venous Partial Pressure O2 [facility] ([facility]) venous total CO2 10.4 mEq/L 24.0-28.0 Below low normal Venous Total CO2 [facility] ([facility]) venous HCO3 9.6 mEq/L 23.0-27.0 Below low normal Venous HCO3 [facility] ([facility]) venous base excess -2.0-2.0 Below low normal Venous Base Excess [facility] ([facility]) venous standard HCO3 11.7 mEq/L Venous Standard HCO3 [facility] ([facility]) venous O2 saturation 97.6 % 60.0-80.0 Above high normal Venous O 2 Saturation [facility] ([facility]) ID Date Data Source [id number] 12/11/2020 12:18:00 AM EST [facility] ([facility]) Name Value Range Interpretation Code Description Data Claribel rce(s) Supporting Document(s) osmolality serum 311 mOsm/kg 275-295 Above high normal Osmolality Serum [facility] ([facility]) ID Date Data Source [id number] 12/11/2020 12:18:00 AM EST [facility] ([facility]) Name Value Range Interpretation Code Description Data Claribel rce(s) Supporting Document(s) phosphorus level 2.4 mg/dL 2.5-4.9 Below low normal Phosphorus Le karma [facility] ([facility]) ID Date Data Source [id number] 12/11/2020 12:18:00 AM EST [facility] ([facility]) Name Value Range Interpretation Code Description Data Claribel rce(s) Supporting Document(s) glucose, fasting 129 mg/dL 70-100 Above high normal Glucose, Fas ting [facility] ([facility]) blood urea nitrogen 26 mg/dL 7-18 Above high normal Blood Ure a Nitrogen [facility] ([facility]) creatinine for GFR 1.51 mg/dL 0.55-1.30 Above high normal Creatinine for GFR [facility] ([facility]) glomerular filtration rate >60 Below low normal Mariza merular Filtration Rate [facility] ([facility]) sodium level 142 mEq/L 136-145 Sodium Level [facility] ([facility]) potassium serum 4.4 mEq/L 3.5-5.1 Potassium Serum [facility] NA ([facility]) carbon dioxide level 11 mEq/L 21-32 Below low normal Carbon Di oxide Level [facility] ([facility]) chloride level 114 mEq/L 98-107 Above high normal Chloride Level [facility] ([facility]) anion gap 17 mEq/L 8-16 Above high normal Anion Gap [facility] ([facility]) calcium level 9.4 mg/dL 8.5-10.1 Calcium Level [facility] ( [facility]) ID Date Data Source [id number] 12/11/2020 12:18:00 AM EST [facility] ([facility]) Name Value Range Interpretation Code Description Data Claribel rce(s) Supporting Document(s) venous pH 7.171 units 7.330-7.430 Below low normal Venous pH [facility] ([facility]) venous partial pressure CO2 26.9 mmHg 38.0-50.0 Below low nor mal Venous Partial Pressure CO2 [facility] ([facility]) venous partial pressure O2 98.1 mmHg 30.0-50.0 Above high nor mal Venous Partial Pressure O2 [facility] ([facility]) venous HCO3 9.6 mEq/L 23.0-27.0 Below low normal Venous HCO3 [facility] ([facility]) venous total CO2 10.4 mEq/L 24.0-28.0 Below low normal Venous Total CO2 [facility] ([facility]) venous base excess -2.0-2.0 Below low normal Venous Base Excess [facility] ([facility]) venous standard HCO3 11.7 mEq/L Venous Standard HCO3 [facility] ([facility]) venous O2 saturation 97.6 % 60.0-80.0 Above high normal Venous O 2 Saturation [facility] ([facility]) ID Date Data Source [id number] 12/11/2020 12:18:00 AM EST [facility] ([facility]) Name Value Range Interpretation Code Description Data Claribel rce(s) Supporting Document(s) osmolality serum 311 mOsm/kg 275-295 Above high normal Osmolality Serum [facility] ([facility]) ID Date Data Source [id number] 12/11/2020 12:18:00 AM EST [facility] ([facility]) Name Value Range Interpretation Code Description Data Claribel rce(s) Supporting Document(s) phosphorus level 2.4 mg/dL 2.5-4.9 Below low normal Phosphorus Le karma [facility] ([facility]) ID Date Data Source [id number] 12/11/2020 12:18:00 AM EST [facility] ([facility]) Name Value Range Interpretation Code Description Data Claribel rce(s) Supporting Document(s) glucose, fasting 129 mg/dL 70-100 Above high normal Glucose, Fas ting [facility] ([facility]) blood urea nitrogen 26 mg/dL 7-18 Above high normal Blood Ure a Nitrogen [facility] ([facility]) creatinine for GFR 1.51 mg/dL 0.55-1.30 Above high normal Creatinine for GFR [facility] ([facility]) glomerular filtration rate >60 Below low normal Mariza merular Filtration Rate [facility] ([facility]) sodium level 142 mEq/L 136-145 Sodium Level [facility] ([facility]) potassium serum 4.4 mEq/L 3.5-5.1 Potassium Serum AT[facility] NA ([facility]) chloride level 114 mEq/L 98-107 Above high normal Chloride Level [facility] ([facility]) carbon dioxide level 11 mEq/L 21-32 Below low normal Carbon Di oxide Level [facility] ([facility]) anion gap 17 mEq/L 8-16 Above high normal Anion Gap [facility] ([facility]) calcium level 9.4 mg/dL 8.5-10.1 Calcium Level [facility] ( [facility]) ID Date Data Source [id number] 12/11/2020 12:18:00 AM EST [facility] ([facility]) Name Value Range Interpretation Code Description Data Claribel rce(s) Supporting Document(s) venous pH 7.171 units 7.330-7.430 Below low normal Venous pH [facility] ([facility]) venous partial pressure CO2 26.9 mmHg 38.0-50.0 Below low nor mal Venous Partial Pressure CO2 [facility] ([facility]) venous partial pressure O2 98.1 mmHg 30.0-50.0 Above high nor mal Venous Partial Pressure O2 [facility] ([facility]) venous total CO2 10.4 mEq/L 24.0-28.0 Below low normal Venous Total CO2 [facility] ([facility]) venous HCO3 9.6 mEq/L 23.0-27.0 Below low normal Venous HCO3 [facility] ([facility]) venous base excess -2.0-2.0 Below low normal Venous Base Excess [facility] ([facility]) venous standard HCO3 11.7 mEq/L Venous Standard HCO3 [facility] ([facility]) venous O2 saturation 97.6 % 60.0-80.0 Above high normal Venous O 2 Saturation [facility] ([facility]) ID Date Data Source [id number] 12/11/2020 12:18:00 AM EST [facility] ([facility]) Name Value Range Interpretation Code Description Data Claribel rce(s) Supporting Document(s) osmolality serum 311 mOsm/kg 275-295 Above high normal Osmolality Serum [facility] ([facility]) ID Date Data Source [id number] 12/11/2020 12:18:00 AM EST [facility] ([facility]) Name Value Range Interpretation Code Description Data Claribel rce(s) Supporting Document(s) phosphorus level 2.4 mg/dL 2.5-4.9 Below low normal Phosphorus Le karma [facility] ([facility]) ID Date Data Source [id number] 12/11/2020 12:18:00 AM EST [facility] ([facility]) Name Value Range Interpretation Code Description Data Claribel rce(s) Supporting Document(s) glucose, fasting 129 mg/dL 70-100 Above high normal Glucose, Fas ting [facility] ([facility]) blood urea nitrogen 26 mg/dL 7-18 Above high normal Blood Ure a Nitrogen [facility] ([facility]) creatinine for GFR 1.51 mg/dL 0.55-1.30 Above high normal Creatinine for GFR [facility] ([facility]) glomerular filtration rate >60 Below low normal Mariza merular Filtration Rate [facility] ([facility]) sodium level 142 mEq/L 136-145 Sodium Level [facility] (No [facility]) potassium serum 4.4 mEq/L 3.5-5.1 Potassium Serum ATHE NA ([facility]) chloride level 114 mEq/L 98-107 Above high normal Chloride Level [facility] ([facility]) carbon dioxide level 11 mEq/L 21-32 Below low normal Carbon Di oxide Level [facility] ([facility]) anion gap 17 mEq/L 8-16 Above high normal Anion Gap [facility] ([facility]) calcium level 9.4 mg/dL 8.5-10.1 Calcium Level [facility] ( [facility]) ID Date Data Source [id number] 12/11/2020 12:18:00 AM EST [facility] ([facility]) Name Value Range Interpretation Code Description Data Claribel rce(s) Supporting Document(s) venous pH 7.171 units 7.330-7.430 Below low normal Venous pH [facility] ([facility]) venous partial pressure CO2 26.9 mmHg 38.0-50.0 Below low nor mal Venous Partial Pressure CO2 [facility] ([facility]) venous partial pressure O2 98.1 mmHg 30.0-50.0 Above high nor mal Venous Partial Pressure O2 [facility] ([facility]) venous total CO2 10.4 mEq/L 24.0-28.0 Below low normal Venous Total CO2 [facility] ([facility]) venous HCO3 9.6 mEq/L 23.0-27.0 Below low normal Venous HCO3 [facility] ([facility]) venous base excess -2.0-2.0 Below low normal Venous Base Excess [facility] ([facility]) venous standard HCO3 11.7 mEq/L Venous Standard HCO3 [facility] ([facility]) venous O2 saturation 97.6 % 60.0-80.0 Above high normal Venous O 2 Saturation [facility] ([facility]) ID Date Data Source [id number] 12/11/2020 12:08:00 AM EST [facility] ([facility] [facility]) Name Value Range Interpretation Code Description Data Claribel rce(s) Supporting Document(s) bedside glucose 118 mg/dL 70-105 Above high normal Bedside Gluco se [facility]) ID Date Data Source [id number] 12/11/2020 12:08:00 [facility] Name Value Range Interpretation Code Description Data Claribel rce(s) Supporting Document(s) bedside glucose 118 mg/dL 70-105 Above high normal Bedside Gluco se [facility] ([facility]) ID Date Data Source [id number] 12/11/2020 12:08:00 [facility] Name Value Range Interpretation Code Description Data Claribel rce(s) Supporting Document(s) bedside glucose 118 mg/dL 70-105 Above high normal Bedside Gluco se [facility]) ID Date Data Source [id number] 12/11/2020 12:08:00 AM EST [facility]ND[facility] ([facility]) Name Value Range Interpretation Code Description Data Claribel rce(s) Supporting Document(s) bedside glucose 118 mg/dL 70-105 Above high normal Bedside Gluco se [facility] ([facility]) ID Date Data Source [id number] 12/11/2020 12:08:00 AM EST [facility] ([facility]) Name Value Range Interpretation Code Description Data Claribel rce(s) Supporting Document(s) bedside glucose 118 mg/dL 70-105 Above high normal Bedside Gluco se [facility] ([facility]) ID Date Data Source [id number] 12/11/2020 12:08:00 AM EST [facility] ([facility]) Name Value Range Interpretation Code Description Data Claribel rce(s) Supporting Document(s) bedside glucose 118 mg/dL 70-105 Above high normal Bedside Gluco se [facility] ([facility]) ID Date Data Source [id number] 12/10/2020 11:06:00 PM EST CYND[facility] ([facility]) Name Value Range Interpretation Code Description Data Claribel rce(s) Supporting Document(s) bedside glucose 102 mg/dL 70-105 Bedside Glucose ATHE NA ([facility]) ID Date Data Source [id number] 12/10/2020 11:06:00 PM EST CYND[facility] ([facility]) Name Value Range Interpretation Code Description Data Claribel rce(s) Supporting Document(s) bedside glucose 102 mg/dL 70-105 Bedside Glucose ATHE NA ([facility]) ID Date Data Source [id number] 12/10/2020 11:06:00 PM EST CYND[facility] ([facility]) Name Value Range Interpretation Code Description Data Claribel rce(s) Supporting Document(s) bedside glucose 102 mg/dL 70-105 Bedside Glucose ATHE NA ([facility]) ID Date Data Source [id number] 12/10/2020 11:06:00 PM EST [facility]ND[facility] ([facility]) Name Value Range Interpretation Code Description Data Claribel rce(s) Supporting Document(s) bedside glucose 102 mg/dL 70-105 Bedside Glucose ATHE NA ([facility]) ID Date Data Source [id number] 12/10/2020 11:06:00 PM EST [facility]ND[facility] ([facility]) Name Value Range Interpretation Code Description Data Claribel rce(s) Supporting Document(s) bedside glucose 102 mg/dL 70-105 Bedside Glucose ATHE NA ([facility]) ID Date Data Source [id number] 12/10/2020 11:06:00 PM EST [facility]ND[facility] ([facility]) Name Value Range Interpretation Code Description Data Claribel rce(s) Supporting Document(s) bedside glucose 102 mg/dL 70-105 Bedside Glucose ATHE NA ([facility]) ID Date Data Source [id number] 12/10/2020 09:50:00 PM EST CYND[facility] ([facility]) Name Value Range Interpretation Code Description Data Claribel rce(s) Supporting Document(s) venous pH 7.294 units 7.330-7.430 Below low normal Venous pH [facility] ([facility]) venous partial pressure O2 213.7 mmHg 30.0-50.0 Above high nor mal Venous Partial Pressure O2 [facility] ([facility]) venous partial pressure CO2 14.3 mmHg 38.0-50.0 Below low nor mal Venous Partial Pressure CO2 [facility] ([facility]) venous total CO2 7.2 mEq/L 24.0-28.0 Below low normal Venous Total CO2 [facility] ([facility]) venous HCO3 6.8 mEq/L 23.0-27.0 Below low normal Venous HCO3 [facility] ([facility]) venous base excess -2.0-2.0 Below low normal Venous Base Excess [facility] ([facility]) venous O2 saturation 99.4 % 60.0-80.0 Above high normal Venous O 2 Saturation [facility] ([facility]) venous standard HCO3 12.3 mEq/L Venous Standard HCO3 [facility] ([facility]) venous site unknown Venous Site [facility] ([facility]) ID Date Data Source [id number] 12/10/2020 09:50:00 PM EST [facility]ND[facility] ([facility]) Name Value Range Interpretation Code Description Data Claribel rce(s) Supporting Document(s) venous pH 7.294 units 7.330-7.430 Below low normal Venous pH [facility] ([facility]) venous partial pressure O2 213.7 mmHg 30.0-50.0 Above high nor mal Venous Partial Pressure O2 [facility] ([facility]) venous total CO2 7.2 mEq/L 24.0-28.0 Below low normal Venous Total CO2 [facility] ([facility]) venous partial pressure CO2 14.3 mmHg 38.0-50.0 Below low nor mal Venous Partial Pressure CO2 [facility] ([facility]) venous base excess -2.0-2.0 Below low normal Venous Base Excess [facility] ([facility]) venous HCO3 6.8 mEq/L 23.0-27.0 Below low normal Venous HCO3 [facility] ([facility]) venous standard HCO3 12.3 mEq/L Venous Standard HCO3 [facility] ([facility]) venous O2 saturation 99.4 % 60.0-80.0 Above high normal Venous O 2 Saturation [facility] ([facility]) venous site unknown Venous Site [facility] ([facility]) ID Date Data Source [id number] 12/10/2020 09:50:00 PM EST [facility] ([facility]) Name Value Range Interpretation Code Description Data Claribel rce(s) Supporting Document(s) venous pH 7.294 units 7.330-7.430 Below low normal Venous pH [facility] ([facility]) venous partial pressure CO2 14.3 mmHg 38.0-50.0 Below low nor mal Venous Partial Pressure CO2 [facility] ([facility]) venous HCO3 6.8 mEq/L 23.0-27.0 Below low normal Venous HCO3 [facility] ([facility]) venous total CO2 7.2 mEq/L 24.0-28.0 Below low normal Venous Total CO2 [facility] ([facility]) venous partial pressure O2 213.7 mmHg 30.0-50.0 Above high nor mal Venous Partial Pressure O2 [facility] ([facility]) venous base excess -2.0-2.0 Below low normal Venous Base Excess [facility] ([facility]) venous site unknown Venous Site [facility] ([facility]) venous O2 saturation 99.4 % 60.0-80.0 Above high normal Venous O 2 Saturation [place] ([facility]) venous standard HCO3 12.3 mEq/L Venous Standard HCO3 [facility] ([facility]) ID Date Data Source [id number] 12/10/2020 09:50:00 PM EST [facility] ([facility]) Name Value Range Interpretation Code Description Data Claribel rce(s) Supporting Document(s) venous partial pressure O2 213.7 mmHg 30.0-50.0 Above high nor mal Venous Partial Pressure O2 [facility] ([facility]) venous pH 7.294 units 7.330-7.430 Below low normal Venous pH [facility] ([facility]) venous total CO2 7.2 mEq/L 24.0-28.0 Below low normal Venous Total CO2 [facility] ([facility]) venous partial pressure CO2 14.3 mmHg 38.0-50.0 Below low nor mal Venous Partial Pressure CO2 [facility] ([facility]) venous standard HCO3 12.3 mEq/L Venous Standard HCO3 [facility] ([facility]) venous HCO3 6.8 mEq/L 23.0-27.0 Below low normal Venous HCO3 [facility] ([facility]) venous base excess -2.0-2.0 Below low normal Venous Base Excess [facility] ([facility]) venous site unknown Venous Site [facility] ([facility]) venous O2 saturation 99.4 % 60.0-80.0 Above high normal Venous O 2 Saturation [facility] ([facility]) ID Date Data Source [id number] 12/10/2020 09:50:00 PM EST [facility] ([facility]) Name Value Range Interpretation Code Description Data Claribel rce(s) Supporting Document(s) venous pH 7.294 units 7.330-7.430 Below low normal Venous pH [facility] ([facility]) venous HCO3 6.8 mEq/L 23.0-27.0 Below low normal Venous HCO3 [facility] ([facility]) venous partial pressure O2 213.7 mmHg 30.0-50.0 Above high nor mal Venous Partial Pressure O2 [facility] ([facility]) venous partial pressure CO2 14.3 mmHg 38.0-50.0 Below low nor mal Venous Partial Pressure CO2 [facility] ([facility]) venous total CO2 7.2 mEq/L 24.0-28.0 Below low normal Venous Total CO2 [facility] ([facility]) venous base excess -2.0-2.0 Below low normal Venous Base Excess [facility] ([facility]) venous standard HCO3 12.3 mEq/L Venous Standard HCO3 [facility] ([facility]) venous O2 saturation 99.4 % 60.0-80.0 Above high normal Venous O 2 Saturation [facility] ([facility]) venous site unknown Venous Site [facility] ([facility]) ID Date Data Source [id number] 12/10/2020 09:50:00 PM EST [facility] ([facility]) Name Value Range Interpretation Code Description Data Claribel rce(s) Supporting Document(s) venous pH 7.294 units 7.330-7.430 Below low normal Venous pH [facility] ([facility]) venous partial pressure CO2 14.3 mmHg 38.0-50.0 Below low nor mal Venous Partial Pressure CO2 [facility] ([facility]) venous partial pressure O2 213.7 mmHg 30.0-50.0 Above high nor mal Venous Partial Pressure O2 [facility] ([facility]) venous standard HCO3 12.3 mEq/L Venous Standard HCO3 [facility] ([facility]) venous total CO2 7.2 mEq/L 24.0-28.0 Below low normal Venous Total CO2 [facility] ([facility]) venous HCO3 6.8 mEq/L 23.0-27.0 Below low normal Venous HCO3 [facility] ([facility]) venous base excess -2.0-2.0 Below low normal Venous Base Excess [facility] ([facility]) venous site unknown Venous Site [facility] ([facility]) venous O2 saturation 99.4 % 60.0-80.0 Above high normal Venous O 2 Saturation [facility] ([facility]) ID Date Data Source [id number] 12/10/2020 09:34:00 PM EST [place] ([facility]) Name Value Range Interpretation Code Description Data Claribel rce(s) Supporting Document(s) bedside glucose 126 mg/dL 70-105 Above high normal Bedside Gluco se [facility]) ID Date Data Source [id number] 12/10/2020 09:34:00 PM EST [facility]) Name Value Range Interpretation Code Description Data Claribel rce(s) Supporting Document(s) bedside glucose 126 mg/dL 70-105 Above high normal [facility] ID Date Data Source [id number] 12/10/2020 09:34:00 PM EST [facility] ([facility]) Name Value Range Interpretation Code Description Data Claribel rce(s) Supporting Document(s) bedside glucose 126 mg/dL 70-105 Above high normal Bedside Gluco se [facility]) ID Date Data Source [id number] 12/10/2020 09:34:00 PM [facility] Name Value Range Interpretation Code Description Data Claribel rce(s) Supporting Document(s) bedside glucose 126 mg/dL 70-105 Above high normal [facility]side [facility] ID Date Data Source [id number] 12/10/2020 09:34:00 PM EST [facility] ([facility]) Name Value Range Interpretation Code Description Data Claribel rce(s) Supporting Document(s) bedside glucose 126 mg/dL 70-105 Above high normal Bedside Gluco se [facility] ([facility]) ID Date Data Source [id number] 12/10/2020 09:34:00 PM EST [facility] ([facility]) Name Value Range Interpretation Code Description Data Claribel rce(s) Supporting Document(s) bedside glucose 126 mg/dL 70-105 Above high normal Bedside Gluco se [facility] ([facility]) ID Date Data Source [id number] 12/10/2020 08:54:00 PM EST [facility] ([facility]) Name Value Range Interpretation Code Description Data Claribel rce(s) Supporting Document(s) ID Date Data Source [id number] 12/10/2020 08:54:00 PM EST [facility] ([facility]) Name Value Range Interpretation Code Description Data Claribel rce(s) Supporting Document(s) ID Date Data Source [id number] 12/10/2020 08:54:00 PM EST [facility] ([facility]) Name Value Range Interpretation Code Description Data Claribel rce(s) Supporting Document(s) ID Date Data Source [id number] 12/10/2020 08:54:00 PM EST [facility] ([facility]) Name Value Range Interpretation Code Description Data Claribel rce(s) Supporting Document(s) ID Date Data Source [id number] 12/10/2020 08:54:00 PM EST [facility]) Name Value Range Interpretation Code Description Data Claribel rce(s) Supporting Document(s) ID Date Data Source [id number] 12/10/2020 08:54:00 PM EST [facility] ([facility]) Name Value Range Interpretation Code Description Data Claribel rce(s) Supporting Document(s) ID Date Data Source [id number] 12/10/2020 08:35:00 PM EST [facility]ND[facility] ([facility]) Name Value Range Interpretation Code Description Data Claribel rce(s) Supporting Document(s) ID Date Data Source [id number] 12/10/2020 08:35:00 PM EST [facility]ND[facility] ([facility]) Name Value Range Interpretation Code Description Data Claribel rce(s) Supporting Document(s) osmolality serum 315 mOsm/kg 275-295 Above high normal Osmolality Serum [facility] ([facility]) ID Date Data Source [id number] 12/10/2020 08:35:00 PM EST [facility] ([facility]) Name Value Range Interpretation Code Description Data Claribel rce(s) Supporting Document(s) phosphorus level 2.5 mg/dL 2.5-4.9 Phosphorus Level AT [facility]) ID Date Data Source [id number] 12/10/2020 08:35:00 PM EST [facility] ([facility]) Name Value Range Interpretation Code Description Data Claribel rce(s) Supporting Document(s) glucose, fasting 222 mg/dL 70-100 Above high normal Glucose, Fas ting [facility] ([facility]) blood urea nitrogen 27 mg/dL 7-18 Above high normal Blood Ure a Nitrogen [facility] ([facility]) creatinine for GFR 1.67 mg/dL 0.55-1.30 Above high normal Creatinine for GFR [facility] ([facility]) glomerular filtration rate >60 Below low normal Mariza merular Filtration Rate [place] ([facility]) sodium level 138 mEq/L 136-145 Sodium Level [facility] (No [facility]) potassium serum 4.7 mEq/L 3.5-5.1 Potassium Serum ATHE NA ([facility]) chloride level 110 mEq/L 98-107 Above high normal Chloride Level [facility] ([facility]) carbon dioxide level 10 mEq/L 21-32 Below low normal Carbon Di oxide Level [facility] ([facility]) calcium level 9.9 mg/dL 8.5-10.1 Calcium Level [facility] ( [facility]) anion gap 18 mEq/L 8-16 Above high normal Anion Gap [facility] ([facility]) ID Date Data Source [id number] 12/10/2020 08:35:00 PM EST [facility] ([facility]) Name Value Range Interpretation Code Description Data Claribel rce(s) Supporting Document(s) glucose, fasting 222 mg/dL 70-100 Above high normal Glucose, Fas ting [facility] ([facility]) blood urea nitrogen 27 mg/dL 7-18 Above high normal Blood Ure a Nitrogen [facility] ([facility]) sodium level 138 mEq/L 136-145 Sodium Level [facility] (No [facility]) creatinine for GFR 1.67 mg/dL 0.55-1.30 Above high normal Creatinine for GFR [facility] ([facility]) glomerular filtration rate >60 Below low normal Mariza merular Filtration Rate [facility] ([facility]) carbon dioxide level 10 mEq/L 21-32 Below low normal Carbon Di oxide Level [facility] ([facility]) potassium serum 4.7 mEq/L 3.5-5.1 Potassium Serum ATHE NA ([facility]) chloride level 110 mEq/L 98-107 Above high normal Chloride Level [facility] ([facility]) calcium level 9.9 mg/dL 8.5-10.1 Calcium Level [facility] ( [facility]) anion gap 18 mEq/L 8-16 Above high normal Anion Gap [facility] ([facility]) ID Date Data Source [id number] 12/10/2020 08:35:00 PM EST [facility] ([facility]) Name Value Range Interpretation Code Description Data Claribel rce(s) Supporting Document(s) ID Date Data Source [id number] 12/10/2020 08:35:00 PM EST [facility] ([facility]) Name Value Range Interpretation Code Description Data Claribel rce(s) Supporting Document(s) osmolality serum 315 mOsm/kg 275-295 Above high normal Osmolality Serum [facility] ([facility]) ID Date Data Source [id number] 12/10/2020 08:35:00 PM EST [facility] ([facility]) Name Value Range Interpretation Code Description Data Claribel rce(s) Supporting Document(s) phosphorus level 2.5 mg/dL 2.5-4.9 Phosphorus Level AT [facility]) ID Date Data Source [id number] 12/10/2020 08:35:00 PM EST [facility]ND[facility] ([facility]) Name Value Range Interpretation Code Description Data Claribel rce(s) Supporting Document(s) blood urea nitrogen 27 mg/dL 7-18 Above high normal Blood Ure a Nitrogen [facility] ([facility]) creatinine for GFR 1.67 mg/dL 0.55-1.30 Above high normal Creatinine for GFR [facility] ([facility]) glucose, fasting 222 mg/dL 70-100 Above high normal Glucose, Fas ting [facility] ([facility]) glomerular filtration rate >60 Below low normal Mariza merular Filtration Rate [facility] ([facility]) potassium serum 4.7 mEq/L 3.5-5.1 Potassium Serum ATHE NA ([facility]) sodium level 138 mEq/L 136-145 Sodium Level [facility] ([facility]) chloride level 110 mEq/L 98-107 Above high normal Chloride Level [facility] ([facility]) carbon dioxide level 10 mEq/L 21-32 Below low normal Carbon Di oxide Level [facility] ([facility]) anion gap 18 mEq/L 8-16 Above high normal Anion Gap [facility] ([facility]) calcium level 9.9 mg/dL 8.5-10.1 Calcium Level [facility] ( [facility]) ID Date Data Source [id number] 12/10/2020 08:35:00 PM EST [facility] ([facility]) Name Value Range Interpretation Code Description Data Claribel rce(s) Supporting Document(s) ID Date Data Source [id number] 12/10/2020 08:35:00 PM EST [facility] ([facility]) Name Value Range Interpretation Code Description Data Claribel rce(s) Supporting Document(s) osmolality serum 315 mOsm/kg 275-295 Above high normal Osmolality Serum [facility] ([facility]) ID Date Data Source [id number] 12/10/2020 08:35:00 PM EST [facility] ([facility]) Name Value Range Interpretation Code Description Data Claribel rce(s) Supporting Document(s) phosphorus level 2.5 mg/dL 2.5-4.9 Phosphorus Level AT [place] ([facility]) ID Date Data Source [id number] 12/10/2020 08:35:00 PM EST [facility] ([facility]) Name Value Range Interpretation Code Description Data Claribel rce(s) Supporting Document(s) glucose, fasting 222 mg/dL 70-100 Above high normal Glucose, Fas ting [facility] ([facility]) glomerular filtration rate >60 Below low normal Mariza merular Filtration Rate [facility] ([facility]) blood urea nitrogen 27 mg/dL 7-18 Above high normal Blood Ure a Nitrogen [facility] ([facility]) creatinine for GFR 1.67 mg/dL 0.55-1.30 Above high normal Creatinine for GFR [facility] ([facility]) chloride level 110 mEq/L 98-107 Above high normal Chloride Level [facility] ([facility]) potassium serum 4.7 mEq/L 3.5-5.1 Potassium Serum ATHE NA ([facility]) sodium level 138 mEq/L 136-145 Sodium Level [facility] (No [facility]) anion gap 18 mEq/L 8-16 Above high normal Anion Gap [facility] ([facility]) carbon dioxide level 10 mEq/L 21-32 Below low normal Carbon Di oxide Level [facility] ([facility]) calcium level 9.9 mg/dL 8.5-10.1 Calcium Level [facility] ( [facility]) ID Date Data Source [id number] 12/10/2020 08:35:00 PM EST [facility] ([facility]) Name Value Range Interpretation Code Description Data Claribel rce(s) Supporting Document(s) ID Date Data Source [id number] 12/10/2020 08:35:00 PM EST [facility] ([facility]) Name Value Range Interpretation Code Description Data Claribel rce(s) Supporting Document(s) osmolality serum 315 mOsm/kg 275-295 Above high normal Osmolality Serum [facility] ([facility]) ID Date Data Source [id number] 12/10/2020 08:35:00 PM EST [facility] ([facility]) Name Value Range Interpretation Code Description Data Claribel rce(s) Supporting Document(s) phosphorus level 2.5 mg/dL 2.5-4.9 Phosphorus Level AT [facility]) ID Date Data Source [id number] 12/10/2020 08:35:00 PM EST [facility] ([facility]) Name Value Range Interpretation Code Description Data Claribel rce(s) Supporting Document(s) blood urea nitrogen 27 mg/dL 7-18 Above high normal Blood Ure a Nitrogen [facility] ([facility]) glucose, fasting 222 mg/dL 70-100 Above high normal Glucose, Fas ting [facility] ([facility]) creatinine for GFR 1.67 mg/dL 0.55-1.30 Above high normal Creatinine for GFR [facility] ([facility]) sodium level 138 mEq/L 136-145 Sodium Level [facility] ([facility]) glomerular filtration rate >60 Below low normal Mariza merular Filtration Rate [facility] ([facility]) potassium serum 4.7 mEq/L 3.5-5.1 Potassium Serum [facility] ([facility]) calcium level 9.9 mg/dL 8.5-10.1 Calcium Level [facility] ( [facility]) anion gap 18 mEq/L 8-16 Above high normal Anion Gap [facility] ([facility]) carbon dioxide level 10 mEq/L 21-32 Below low normal Carbon Di oxide Level [facility] ([facility]) chloride level 110 mEq/L 98-107 Above high normal Chloride Level [facility] ([facility]) ID Date Data Source [id number] 12/10/2020 08:35:00 PM EST [facility] ([facility]) Name Value Range Interpretation Code Description Data Claribel rce(s) Supporting Document(s) ID Date Data Source [id number] 12/10/2020 08:35:00 PM EST [facility] ([facility]) Name Value Range Interpretation Code Description Data Claribel rce(s) Supporting Document(s) osmolality serum 315 mOsm/kg 275-295 Above high normal Osmolality Serum [facility] ([facility]) ID Date Data Source [id number] 12/10/2020 08:35:00 PM EST [facility] ([facility]) Name Value Range Interpretation Code Description Data Claribel rce(s) Supporting Document(s) phosphorus level 2.5 mg/dL 2.5-4.9 Phosphorus Level AT [facility]) ID Date Data Source [id number] 12/10/2020 08:35:00 PM EST [facility] ([facility]) Name Value Range Interpretation Code Description Data Clarible rce(s) Supporting Document(s) ID Date Data Source [id number] 12/10/2020 08:35:00 PM EST [facility] ([facility]) Name Value Range Interpretation Code Description Data Claribel rce(s) Supporting Document(s) osmolality serum 315 mOsm/kg 275-295 Above high normal Osmolality Serum [facility] ([facility]) ID Date Data Source [id number] 12/10/2020 08:35:00 PM EST [facility] ([facility]) Name Value Range Interpretation Code Description Data Claribel rce(s) Supporting Document(s) phosphorus level 2.5 mg/dL 2.5-4.9 Phosphorus Level AT [facility] ([facility]) ID Date Data Source [id number] 12/10/2020 08:35:00 PM EST [facility] ([facility]) Name Value Range Interpretation Code Description Data Claribel rce(s) Supporting Document(s) glucose, fasting 222 mg/dL 70-100 Above high normal Glucose, Fas ting [facility] ([facility]) blood urea nitrogen 27 mg/dL 7-18 Above high normal Blood Ure a Nitrogen [facility] ([facility]) glomerular filtration rate >60 Below low normal Mariza merular Filtration Rate [facility] ([facility]) creatinine for GFR 1.67 mg/dL 0.55-1.30 Above high normal Creatinine for GFR [facility] ([facility]) chloride level 110 mEq/L 98-107 Above high normal Chloride Level [facility] ([facility]) sodium level 138 mEq/L 136-145 Sodium Level [facility] ([facility]) carbon dioxide level 10 mEq/L 21-32 Below low normal Carbon Di oxide Level [facility] ([facility]) potassium serum 4.7 mEq/L 3.5-5.1 Potassium Serum [facility] ([facility]) calcium level 9.9 mg/dL 8.5-10.1 Calcium Level [facility] ( [facility]) anion gap 18 mEq/L 8-16 Above high normal Anion Gap [facility] ([facility]) ID Date Data Source [id number] 12/10/2020 08:27:00 PM EST [facility] ([facility]) Name Value Range Interpretation Code Description Data Claribel rce(s) Supporting Document(s) bedside glucose 206 mg/dL 70-105 Above high normal Bedside Gluco se [facility] ([facility]) ID Date Data Source [id number] 12/10/2020 08:27:00 PM EST [facility] ([facility]) Name Value Range Interpretation Code Description Data Claribel rce(s) Supporting Document(s) bedside glucose 206 mg/dL 70-105 Above high normal Bedside Gluco se [facility] ([facility]) ID Date Data Source [id number] 12/10/2020 08:27:00 PM EST [facility] ([facility]) Name Value Range Interpretation Code Description Data Claribel rce(s) Supporting Document(s) bedside glucose 206 mg/dL 70-105 Above high normal Bedside Gluco se [facility] ([facility]) ID Date Data Source [id number] 12/10/2020 08:27:00 PM EST [facility] ([facility]) Name Value Range Interpretation Code Description Data Claribel rce(s) Supporting Document(s) bedside glucose 206 mg/dL 70-105 Above high normal Bedside Gluco se [facility] ([facility]) ID Date Data Source [id number] 12/10/2020 08:27:00 PM EST [facility] ([facility]) Name Value Range Interpretation Code Description Data Claribel rce(s) Supporting Document(s) bedside glucose 206 mg/dL 70-105 Above high normal Bedside Gluco se [facility] ([facility]) ID Date Data Source [id number] 12/10/2020 08:27:00 PM EST [facility] ([facility]) Name Value Range Interpretation Code Description Data Claribel rce(s) Supporting Document(s) bedside glucose 206 mg/dL 70-105 Above high normal Bedside Gluco se [facility] ([facility]) ID Date Data Source [id number] 12/10/2020 07:46:00 PM EST [facility] ([facility]) Name Value Range Interpretation Code Description Data Claribel rce(s) Supporting Document(s) sars covid-19 amplification negative negative Sars Cov id-19 Amplification [facility] ([facility]) ID Date Data Source [id number] 12/10/2020 07:46:00 PM EST [facility]) Name Value Range Interpretation Code Description Data Claribel rce(s) Supporting Document(s) sars covid-19 amplification negative negative Sars Cov id-19 Amplification [facility]) ID Date Data Source [id number] 12/10/2020 07:46:00 PM EST [facility]) Name Value Range Interpretation Code Description Data Claribel rce(s) Supporting Document(s) sars covid-19 amplification negative negative Sars Cov id-19 Amplification [facility]) ID Date Data Source [id number] 12/10/2020 07:46:00 PM EST [facility]) Name Value Range Interpretation Code Description Data Claribel rce(s) Supporting Document(s) sars covid-19 amplification negative negative Sars Cov id-19 Amplification [facility]) ID Date Data Source [id number] 12/10/2020 07:46:00 PM EST [facility]) Name Value Range Interpretation Code Description Data Claribel rce(s) Supporting Document(s) sars covid-19 amplification negative negative Sars Cov id-19 Amplification [facility]) ID Date Data Source [id number] 12/10/2020 07:46:00 PM EST [facility] Name Value Range Interpretation Code Description Data Claribel rce(s) Supporting Document(s) SARS coronavirus 2 RNA [Presence] in Res piratory specimen by ANDREE with probe detection NEGATIVE [facility] This lab was ordered by [facility] a nd reported by [facility]. ID Date Data Source [id number] 12/10/2020 07:46:00 PM EST [facility] ([facility]) Name Value Range Interpretation Code Description Data Claribel rce(s) Supporting Document(s) sars covid-19 amplification negative negative Sars Cov id-19 Amplification [facility]) ID Date Data Source [id number] 12/10/2020 06:53:00 PM EST [facility] ([facility]) Name Value Range Interpretation Code Description Data Claribel rce(s) Supporting Document(s) bedside glucose 342 mg/dL 70-105 Above high normal Bedside Gluco se [facility]) ID Date Data Source [id number] 12/10/2020 06:53:00 PM EST [facility]) Name Value Range Interpretation Code Description Data Claribel rce(s) Supporting Document(s) bedside glucose 342 mg/dL 70-105 Above high normal Bedside Gluco se [facility]) ID Date Data Source [id number] 12/10/2020 06:53:00 PM EST [facility]) Name Value Range Interpretation Code Description Data Claribel rce(s) Supporting Document(s) bedside glucose 342 mg/dL 70-105 Above high normal Bedside Gluco se [facility]) ID Date Data Source [id number] 12/10/2020 06:53:00 PM EST [facility]) Name Value Range Interpretation Code Description Data Claribel rce(s) Supporting Document(s) bedside glucose 342 mg/dL 70-105 Above high normal Bedside Gluco se [facility] ([facility]) ID Date Data Source [id number] 12/10/2020 06:53:00 PM EST [facility] ([facility]) Name Value Range Interpretation Code Description Data Claribel rce(s) Supporting Document(s) bedside glucose 342 mg/dL 70-105 Above high normal Bedside Gluco se [facility] ([facility]) ID Date Data Source [id number] 12/10/2020 06:53:00 PM EST [facility] ([facility]) Name Value Range Interpretation Code Description Data Claribel rce(s) Supporting Document(s) bedside glucose 342 mg/dL 70-105 Above high normal Bedside Gluco se [facility] ([facility]) ID Date Data Source [id number] 12/10/2020 05:58:00 PM EST [facility] ([facility]) Name Value Range Interpretation Code Description Data Claribel rce(s) Supporting Document(s) lipase 58 U/L 73-393 Below low normal Lipase [facility] ( [facility]) ID Date Data Source [id number] 12/10/2020 05:58:00 PM EST [facility] ([facility]) Name Value Range Interpretation Code Description Data Claribel rce(s) Supporting Document(s) magnesium level 2.3 mg/dL 1.8-2.4 Magnesium Level [facility] ([facility]) ID Date Data Source [id number] 12/10/2020 05:58:00 PM EST [facility] ([facility]) Name Value Range Interpretation Code Description Data Claribel rce(s) Supporting Document(s) ALT/SGPT 20 U/L 12-78 ALT/SGPT [facility] ([facility]) AST/SGOT 12 U/L 7-37 AST/SGOT [facility] ([facility]) bilirubin,direct < 0.1 0.0-0.2 Bilirubin,direct AT [facility] ([facility]) bilirubin,total 0.4 mg/dL 0.2-1.0 Bilirubin,total [facility] ([facility]) alkaline phosphatase 108 U/L 45-117 Alkaline Phosph atase [facility] ([facility]) albumin 3.7 gm/dL 3.2-5.2 Albumin [facility] ([facility]) total protein 8.2 gm/dL 6.4-8.2 Total Protein [facility] ( [facility]) albumin/globulin ratio 1.2-2.2 Below low normal Albumin /globulin Ratio [facility] ([facility]) ID Date Data Source [id number] 12/10/2020 05:58:00 PM EST [facility] ([facility]) Name Value Range Interpretation Code Description Data Claribel rce(s) Supporting Document(s) lactic acid sepsis protocol 1.2 mmol/L 0.4-2.0 Lactic A bro Sepsis Protocol [facility] ([facility]) ID Date Data Source [id number] 12/10/2020 05:58:00 PM EST [facility] ([facility]) Name Value Range Interpretation Code Description Data Claribel rce(s) Supporting Document(s) red blood count 5.54 10 4.00-5.40 Above high normal Red Blood Cou nt [facility] ([facility]) white blood count 10.7 10 4.0-10.0 Above high normal White Blood Count [facility] ([facility]) hemoglobin 16.3 g/dL 12.0-15.5 Above high normal Hemoglobin [facility] ([facility]) hematocrit 51.1 % 36.0-47.0 Above high normal Hematocrit [facility] ([facility]) mean corpuscular volume 92.2 fL 80.0-96.0 Mean Corpusc ular Volume [facility] ([facility]) mean corpuscular hemoglobin 29.4 pg 27.0-33.0 Mean Cor puscular Hemoglobin [facility] ([facility]) mean corpuscular HGB conc 31.9 g/dL 32.0-36.5 Below low margaux l Mean Corpuscular HGB Conc [facility] ([facility]) red cell distribution width 13.1 % 11.5-14.5 Red Cell Distribution Width [facility] ([facility]) neutrophils % 81.9 % 36.0-66.0 Above high normal Neutrophils % A [facility] ([facility]) platelet count, automated 313 10 150-450 Platelet C ount, Automated [facility] ([facility]) mono % 5.4 % 0.0-5.0 Above high normal Wood % [facility] ([facility]) lymph % 12.0 % 24.0-44.0 Below low normal Lymph % [facility] ( [facility]) eos % 0.0 % 0.0-3.0 Eos % [facility] ([facility]) baso % 0.4 % 0.0-1.0 Baso % [facility] ([facility]) immature granulocyte % 0.3 % 0-3.0 Immature Gran ulocyte % [facility] ([facility]) nucleated red blood cell % 0.0 % 0-0 Nucleated Red Blood Cell % [facility] ([facility]) neutrophils # 8.8 10 1.5-8.5 Above high normal Neutrophils # A [facility] ([facility]) lymph # 1.3 10 1.5-5.0 Below low normal Lymph # [facility] ( [facility]) mono # 0.6 10 0.0-0.8 Wood # [facility] ([facility]) eos # 0.0 10 0.0-0.5 Eos # [facility] ([facility]) baso # 0.0 10 0.0-0.2 Baso # [facility] ([facility]) ID Date Data Source [id number] 12/10/2020 05:58:00 PM EST [facility] ([facility]) Name Value Range Interpretation Code Description Data Claribel rce(s) Supporting Document(s) lipase 58 U/L 73-393 Below low normal Lipase [facility] ( [facility]) ID Date Data Source [id number] 12/10/2020 05:58:00 PM EST [facility] ([facility]) Name Value Range Interpretation Code Description Data Claribel rce(s) Supporting Document(s) magnesium level 2.3 mg/dL 1.8-2.4 Magnesium Level [facility] ([facility]) ID Date Data Source [id number] 12/10/2020 05:58:00 PM EST [facility] ([facility]) Name Value Range Interpretation Code Description Data Claribel rce(s) Supporting Document(s) AST/SGOT 12 U/L 7-37 AST/SGOT [facility] ([facility]) alkaline phosphatase 108 U/L 45-117 Alkaline Phosph atase [facility] ([facility]) bilirubin,direct < 0.1 0.0-0.2 Bilirubin,direct AT [facility] ([facility]) bilirubin,total 0.4 mg/dL 0.2-1.0 Bilirubin,total [facility] ([facility]) ALT/SGPT 20 U/L 12-78 ALT/SGPT [facility] ([facility]) total protein 8.2 gm/dL 6.4-8.2 Total Protein [facility] ( [facility]) albumin 3.7 gm/dL 3.2-5.2 Albumin [facility] ([facility]) albumin/globulin ratio 1.2-2.2 Below low normal Albumin /globulin Ratio [facility] ([facility]) ID Date Data Source [id number] 12/10/2020 05:58:00 PM EST [facility] ([facility]) Name Value Range Interpretation Code Description Data Claribel rce(s) Supporting Document(s) lactic acid sepsis protocol 1.2 mmol/L 0.4-2.0 Lactic A bro Sepsis Protocol [facility] ([facility]) ID Date Data Source [id number] 12/10/2020 05:58:00 PM EST [facility] ([facility]) Name Value Range Interpretation Code Description Data Claribel rce(s) Supporting Document(s) hemoglobin 16.3 g/dL 12.0-15.5 Above high normal Hemoglobin [facility] ([facility]) red blood count 5.54 10 4.00-5.40 Above high normal Red Blood Cou nt [facility] ([facility]) white blood count 10.7 10 4.0-10.0 Above high normal White Blood Count [facility] ([facility]) mean corpuscular volume 92.2 fL 80.0-96.0 Mean Corpusc ular Volume [facility] ([facility]) hematocrit 51.1 % 36.0-47.0 Above high normal Hematocrit [facility] ([facility]) mean corpuscular HGB conc 31.9 g/dL 32.0-36.5 Below low margaux l Mean Corpuscular HGB Conc [facility] ([facility]) mean corpuscular hemoglobin 29.4 pg 27.0-33.0 Mean Cor puscular Hemoglobin [facility] ([facility]) red cell distribution width 13.1 % 11.5-14.5 Red Cell Distribution Width [facility] ([facility]) lymph % 12.0 % 24.0-44.0 Below low normal Lymph % [facility] ( [facility]) neutrophils % 81.9 % 36.0-66.0 Above high normal Neutrophils % A [facility] ([facility]) platelet count, automated 313 10 150-450 Platelet C ount, Automated [facility] ([facility]) eos % 0.0 % 0.0-3.0 Eos % [facility] ([facility]) baso % 0.4 % 0.0-1.0 Baso % [facility] ([facility]) mono % 5.4 % 0.0-5.0 Above high normal Wood % [facility] ([facility]) nucleated red blood cell % 0.0 % 0-0 Nucleated Red Blood Cell % [facility] ([facility]) immature granulocyte % 0.3 % 0-3.0 Immature Gran ulocyte % [facility] ([facility]) lymph # 1.3 10 1.5-5.0 Below low normal Lymph # [facility] ( [facility]) mono # 0.6 10 0.0-0.8 Wood # [facility] ([facility]) neutrophils # 8.8 10 1.5-8.5 Above high normal Neutrophils # A [facility] ([facility]) eos # 0.0 10 0.0-0.5 Eos # [facility] ([facility]) baso # 0.0 10 0.0-0.2 Baso # [facility] ([facility]) ID Date Data Source [id number] 12/10/2020 05:58:00 PM EST [facility] ([facility]) Name Value Range Interpretation Code Description Data Claribel rce(s) Supporting Document(s) lipase 58 U/L 73-393 Below low normal Lipase [facility] ( [facility]) ID Date Data Source [id number] 12/10/2020 05:58:00 PM EST [facility] ([facility]) Name Value Range Interpretation Code Description Data Claribel rce(s) Supporting Document(s) magnesium level 2.3 mg/dL 1.8-2.4 Magnesium Level [facility] ([facility]) ID Date Data Source [id number] 12/10/2020 05:58:00 PM EST [facility] ([facility]) Name Value Range Interpretation Code Description Data Claribel rce(s) Supporting Document(s) ALT/SGPT 20 U/L 12-78 ALT/SGPT [facility] ([facility]) AST/SGOT 12 U/L 7-37 AST/SGOT [facility] ([facility]) bilirubin,direct < 0.1 0.0-0.2 Bilirubin,direct AT [facility] ([facility]) bilirubin,total 0.4 mg/dL 0.2-1.0 Bilirubin,total [facility] ([facility]) alkaline phosphatase 108 U/L 45-117 Alkaline Phosph atase [facility] ([facility]) albumin/globulin ratio 1.2-2.2 Below low normal Albumin /globulin Ratio [facility] ([facility]) albumin 3.7 gm/dL 3.2-5.2 Albumin [facility] ([facility]) total protein 8.2 gm/dL 6.4-8.2 Total Protein [facility] ( [facility]) ID Date Data Source [id number] 12/10/2020 05:58:00 PM EST [facility] ([facility]) Name Value Range Interpretation Code Description Data Claribel rce(s) Supporting Document(s) lactic acid sepsis protocol 1.2 mmol/L 0.4-2.0 Lactic A bro Sepsis Protocol [facility] ([facility]) ID Date Data Source [id number] 12/10/2020 05:58:00 PM EST [facility] ([facility]) Name Value Range Interpretation Code Description Data Claribel rce(s) Supporting Document(s) red blood count 5.54 10 4.00-5.40 Above high normal Red Blood Cou nt [facility] ([facility]) white blood count 10.7 10 4.0-10.0 Above high normal White Blood Count [facility]) mean corpuscular volume 92.2 fL 80.0-96.0 Mean Corpusc ular Volume [facility] ([facility]) hemoglobin 16.3 g/dL 12.0-15.5 Above high normal Hemoglobin [facility] ([facility]) hematocrit 51.1 % 36.0-47.0 Above high normal Hematocrit [facility] ([facility]) mean corpuscular hemoglobin 29.4 pg 27.0-33.0 Mean Cor puscular Hemoglobin [facility] ([facility]) red cell distribution width 13.1 % 11.5-14.5 Red Cell Distribution Width [facility] ([facility]) mean corpuscular HGB conc 31.9 g/dL 32.0-36.5 Below low margaux l Mean Corpuscular HGB Conc [facility] ([facility]) platelet count, automated 313 10 150-450 Platelet C ount, Automated [facility] ([facility]) neutrophils % 81.9 % 36.0-66.0 Above high normal Neutrophils % A [facility] ([facility]) lymph % 12.0 % 24.0-44.0 Below low normal Lymph % [facility] ( [facility]) mono % 5.4 % 0.0-5.0 Above high normal Wood % [facility] ([facility]) eos % 0.0 % 0.0-3.0 Eos % [facility] ([facility]) baso % 0.4 % 0.0-1.0 Baso % [facility] ([facility]) nucleated red blood cell % 0.0 % 0-0 Nucleated Red Blood Cell % [facility] ([facility]) immature granulocyte % 0.3 % 0-3.0 Immature Gran ulocyte % [facility] ([facility]) neutrophils # 8.8 10 1.5-8.5 Above high normal Neutrophils # A [facility] ([facility]) lymph # 1.3 10 1.5-5.0 Below low normal Lymph # [facility] ( [facility]) mono # 0.6 10 0.0-0.8 Wood # [facility] ([facility]) eos # 0.0 10 0.0-0.5 Eos # [facility] ([facility]) baso # 0.0 10 0.0-0.2 Baso # [facility] ([facility]) ID Date Data Source [id number] 12/10/2020 05:58:00 PM EST [facility] ([facility]) Name Value Range Interpretation Code Description Data Claribel rce(s) Supporting Document(s) lipase 58 U/L 73-393 Below low normal Lipase [facility] ( [facility]) ID Date Data Source [id number] 12/10/2020 05:58:00 PM EST [facility] ([facility]) Name Value Range Interpretation Code Description Data Claribel rce(s) Supporting Document(s) magnesium level 2.3 mg/dL 1.8-2.4 Magnesium Level AT[facility] NA ([facility]) ID Date Data Source [id number] 12/10/2020 05:58:00 PM EST [facility] ([facility]) Name Value Range Interpretation Code Description Data Claribel rce(s) Supporting Document(s) ALT/SGPT 20 U/L 12-78 ALT/SGPT [facility] ([facility]) AST/SGOT 12 U/L 7-37 AST/SGOT [facility] ([facility]) alkaline phosphatase 108 U/L 45-117 Alkaline Phosph atase [facility] ([facility]) bilirubin,total 0.4 mg/dL 0.2-1.0 Bilirubin,total ATHE NA ([facility]) bilirubin,direct < 0.1 0.0-0.2 Bilirubin,direct AT [place] ([facility]) total protein 8.2 gm/dL 6.4-8.2 Total Protein [facility] ( [facility]) albumin 3.7 gm/dL 3.2-5.2 Albumin [facility] ([facility]) albumin/globulin ratio 1.2-2.2 Below low normal Albumin /globulin Ratio [facility] ([facility]) ID Date Data Source [id number] 12/10/2020 05:58:00 PM EST [facility] ([facility]) Name Value Range Interpretation Code Description Data Claribel rce(s) Supporting Document(s) lactic acid sepsis protocol 1.2 mmol/L 0.4-2.0 Lactic A bro Sepsis Protocol [facility] ([facility]) ID Date Data Source [id number] 12/10/2020 05:58:00 PM EST [facility] ([facility]) Name Value Range Interpretation Code Description Data Claribel rce(s) Supporting Document(s) red blood count 5.54 10 4.00-5.40 Above high normal Red Blood Cou nt [facility] ([facility]) white blood count 10.7 10 4.0-10.0 Above high normal White Blood Count [facility] ([facility]) hemoglobin 16.3 g/dL 12.0-15.5 Above high normal Hemoglobin [facility] ([facility]) hematocrit 51.1 % 36.0-47.0 Above high normal Hematocrit [facility] ([facility]) mean corpuscular volume 92.2 fL 80.0-96.0 Mean Corpusc ular Volume [facility] ([facility]) mean corpuscular hemoglobin 29.4 pg 27.0-33.0 Mean Cor puscular Hemoglobin [facility] ([facility]) mean corpuscular HGB conc 31.9 g/dL 32.0-36.5 Below low margaux l Mean Corpuscular HGB Conc [facility] ([facility]) red cell distribution width 13.1 % 11.5-14.5 Red Cell Distribution Width [facility] ([facility]) neutrophils % 81.9 % 36.0-66.0 Above high normal Neutrophils % A [facility] ([facility]) lymph % 12.0 % 24.0-44.0 Below low normal Lymph % [facility] ( [facility]) platelet count, automated 313 10 150-450 Platelet C ount, Automated [facility] ([facility]) mono % 5.4 % 0.0-5.0 Above high normal Wood % [facility] ([facility]) eos % 0.0 % 0.0-3.0 Eos % [facility] ([facility]) baso % 0.4 % 0.0-1.0 Baso % [facility] ([facility]) immature granulocyte % 0.3 % 0-3.0 Immature Gran ulocyte % [facility] ([facility]) nucleated red blood cell % 0.0 % 0-0 Nucleated Red Blood Cell % [facility] ([facility]) lymph # 1.3 10 1.5-5.0 Below low normal Lymph # [facility] ( [facility]) neutrophils # 8.8 10 1.5-8.5 Above high normal Neutrophils # [facility]) mono # 0.6 10 0.0-0.8 Wood # [facility] ([facility]) eos # 0.0 10 0.0-0.5 Eos # [facility] ([facility]) baso # 0.0 10 0.0-0.2 Baso # [facility] ([facility]) ID Date Data Source [id number] 12/10/2020 05:58:00 PM EST [facility] ([facility]) Name Value Range Interpretation Code Description Data Claribel rce(s) Supporting Document(s) lipase 58 U/L 73-393 Below low normal Lipase [facility] ( [facility]) ID Date Data Source [id number] 12/10/2020 05:58:00 PM EST [facility] ([facility]) Name Value Range Interpretation Code Description Data Claribel rce(s) Supporting Document(s) magnesium level 2.3 mg/dL 1.8-2.4 Magnesium Level AT[facility] NA ([facility]) ID Date Data Source [id number] 12/10/2020 05:58:00 PM EST [facility] ([facility]) Name Value Range Interpretation Code Description Data Claribel rce(s) Supporting Document(s) AST/SGOT 12 U/L 7-37 AST/SGOT [facility] ([facility]) alkaline phosphatase 108 U/L 45-117 Alkaline Phosph atase [facility] ([facility]) bilirubin,total 0.4 mg/dL 0.2-1.0 Bilirubin,total AT[facility] NA ([facility]) ALT/SGPT 20 U/L 12-78 ALT/SGPT [facility] ([facility]) total protein 8.2 gm/dL 6.4-8.2 Total Protein [facility] ( [facility]) albumin 3.7 gm/dL 3.2-5.2 Albumin [facility] ([facility]) bilirubin,direct < 0.1 0.0-0.2 Bilirubin,direct AT [place] ([facility]) albumin/globulin ratio 1.2-2.2 Below low normal Albumin /globulin Ratio [facility] ([facility]) ID Date Data Source [id number] 12/10/2020 05:58:00 PM EST [facility] ([facility]) Name Value Range Interpretation Code Description Data Claribel rce(s) Supporting Document(s) lactic acid sepsis protocol 1.2 mmol/L 0.4-2.0 Lactic A bro Sepsis Protocol [facility] ([facility]) ID Date Data Source [id number] 12/10/2020 05:58:00 PM EST [facility] ([facility]) Name Value Range Interpretation Code Description Data Claribel rce(s) Supporting Document(s) white blood count 10.7 10 4.0-10.0 Above high normal White Blood Count [facility] ([facility]) hemoglobin 16.3 g/dL 12.0-15.5 Above high normal Hemoglobin [facility] ([facility]) red blood count 5.54 10 4.00-5.40 Above high normal Red Blood Cou nt [facility] ([facility]) hematocrit 51.1 % 36.0-47.0 Above high normal Hematocrit [facility] ([facility]) mean corpuscular hemoglobin 29.4 pg 27.0-33.0 Mean Cor puscular Hemoglobin [facility] ([facility]) mean corpuscular volume 92.2 fL 80.0-96.0 Mean Corpusc ular Volume [facility] ([facility]) mean corpuscular HGB conc 31.9 g/dL 32.0-36.5 Below low margaux l Mean Corpuscular HGB Conc [facility] ([facility]) red cell distribution width 13.1 % 11.5-14.5 Red Cell Distribution Width [facility] ([facility]) platelet count, automated 313 10 150-450 Platelet C ount, Automated [facility]) lymph % 12.0 % 24.0-44.0 Below low normal Lymph % [place] ( [facility]) neutrophils % 81.9 % 36.0-66.0 Above high normal Neutrophils % A [facility] mono % 5.4 % 0.0-5.0 Above high normal Wood % [facility] ([facility]) baso % 0.4 % 0.0-1.0 Baso % [facility] ([facility]) eos % 0.0 % 0.0-3.0 Eos % [facility] ([facility]) nucleated red blood cell % 0.0 % 0-0 Nucleated Red Blood Cell % [facility] ([facility]) immature granulocyte % 0.3 % 0-3.0 Immature Gran ulocyte % [facility] ([facility]) lymph # 1.3 10 1.5-5.0 Below low normal Lymph # [facility] ( [facility]) neutrophils # 8.8 10 1.5-8.5 Above high normal Neutrophils # A [facility] ([facility]) mono # 0.6 10 0.0-0.8 Wood # [facility] ([facility]) baso # 0.0 10 0.0-0.2 Baso # [facility] ([facility]) eos # 0.0 10 0.0-0.5 Eos # [facility] ([facility]) ID Date Data Source [id number] 12/10/2020 05:58:00 PM EST [facility] ([facility]) Name Value Range Interpretation Code Description Data Claribel rce(s) Supporting Document(s) lipase 58 U/L 73-393 Below low normal Lipase [facility] ( [facility]) ID Date Data Source [id number] 12/10/2020 05:58:00 PM EST [facility] ([facility]) Name Value Range Interpretation Code Description Data Claribel rce(s) Supporting Document(s) magnesium level 2.3 mg/dL 1.8-2.4 Magnesium Level AT[facility] NA ([facility]) ID Date Data Source [id number] 12/10/2020 05:58:00 PM EST [facility] ([facility]) Name Value Range Interpretation Code Description Data Claribel rce(s) Supporting Document(s) AST/SGOT 12 U/L 7-37 AST/SGOT [facility] ([facility]) alkaline phosphatase 108 U/L 45-117 Alkaline Phosph atase [facility] ([facility]) ALT/SGPT 20 U/L 12-78 ALT/SGPT [facility] ([facility]) bilirubin,total 0.4 mg/dL 0.2-1.0 Bilirubin,total AT[facility] NA ([facility]) bilirubin,direct < 0.1 0.0-0.2 Bilirubin,direct AT [place] ([facility]) albumin 3.7 gm/dL 3.2-5.2 Albumin [facility] ([facility]) total protein 8.2 gm/dL 6.4-8.2 Total Protein [facility] ( [facility]) albumin/globulin ratio 1.2-2.2 Below low normal Albumin /globulin Ratio [facility] ([facility]) ID Date Data Source [id number] 12/10/2020 05:58:00 PM EST [facility] ([facility]) Name Value Range Interpretation Code Description Data Claribel rce(s) Supporting Document(s) lactic acid sepsis protocol 1.2 mmol/L 0.4-2.0 Lactic A bro Sepsis Protocol [facility] ([facility]) ID Date Data Source [id number] 12/10/2020 05:58:00 PM EST [facility] ([facility]) Name Value Range Interpretation Code Description Data Claribel rce(s) Supporting Document(s) white blood count 10.7 10 4.0-10.0 Above high normal White Blood Count [facility] ([facility]) hemoglobin 16.3 g/dL 12.0-15.5 Above high normal Hemoglobin [facility] ([facility]) red blood count 5.54 10 4.00-5.40 Above high normal Red Blood Cou nt [facility] ([facility]) mean corpuscular volume 92.2 fL 80.0-96.0 Mean Corpusc ular Volume [facility] ([facility]) hematocrit 51.1 % 36.0-47.0 Above high normal Hematocrit [facility] ([facility]) mean corpuscular hemoglobin 29.4 pg 27.0-33.0 Mean Cor puscular Hemoglobin [facility] ([facility]) platelet count, automated 313 10 150-450 Platelet C ount, Automated [facility] ([facility]) mean corpuscular HGB conc 31.9 g/dL 32.0-36.5 Below low margaux l Mean Corpuscular HGB Conc [facility] ([facility]) red cell distribution width 13.1 % 11.5-14.5 Red Cell Distribution Width [facility] ([facility]) lymph % 12.0 % 24.0-44.0 Below low normal Lymph % [facility] ( [facility]) neutrophils % 81.9 % 36.0-66.0 Above high normal Neutrophils % [facility]) mono % 5.4 % 0.0-5.0 Above high normal Wood % [facility] ([facility]) eos % 0.0 % 0.0-3.0 Eos % [facility] ([facility]) baso % 0.4 % 0.0-1.0 Baso % [facility] ([facility]) immature granulocyte % 0.3 % 0-3.0 Immature Gran ulocyte % [facility] ([facility]) neutrophils # 8.8 10 1.5-8.5 Above high normal Neutrophils # A [facility] ([facility]) lymph # 1.3 10 1.5-5.0 Below low normal Lymph # [facility] ( [facility]) nucleated red blood cell % 0.0 % 0-0 Nucleated Red Blood Cell % [facility] ([facility]) eos # 0.0 10 0.0-0.5 Eos # [facility] ([facility]) mono # 0.6 10 0.0-0.8 Wood # [facility] ([facility]) baso # 0.0 10 0.0-0.2 Baso # [facility] ([facility]) ID Date Data Source [id number] 12/10/2020 05:56:00 PM EST [facility] ([facility]) Name Value Range Interpretation Code Description Data Claribel rce(s) Supporting Document(s) bedside glucose 322 mg/dL 70-105 Above high normal Bedside Gluco se [facility] ([facility]) ID Date Data Source [id number] 12/10/2020 05:56:00 PM EST [facility] ([facility]) Name Value Range Interpretation Code Description Data Claribel rce(s) Supporting Document(s) bedside glucose 322 mg/dL 70-105 Above high normal Bedside Gluco se [facility] ([facility]) ID Date Data Source [id number] 12/10/2020 05:56:00 PM EST [facility] ([facility]) Name Value Range Interpretation Code Description Data Claribel rce(s) Supporting Document(s) bedside glucose 322 mg/dL 70-105 Above high normal Bedside Gluco se [facility] ([facility]) ID Date Data Source [id number] 12/10/2020 05:56:00 PM EST [facility] ([facility]) Name Value Range Interpretation Code Description Data Claribel rce(s) Supporting Document(s) bedside glucose 322 mg/dL 70-105 Above high normal Bedside Gluco se [facility] ([facility]) ID Date Data Source [id number] 12/10/2020 05:56:00 PM EST [facility] ([facility]) Name Value Range Interpretation Code Description Data Claribel rce(s) Supporting Document(s) bedside glucose 322 mg/dL 70-105 Above high normal Bedside Gluco se [facility] ([facility]) ID Date Data Source [id number] 12/10/2020 05:56:00 PM EST [facility] ([facility]) Name Value Range Interpretation Code Description Data Claribel rce(s) Supporting Document(s) bedside glucose 322 mg/dL 70-105 Above high normal Bedside Gluco se [facility] ([facility]) ID Date Data Source [id number] 12/10/2020 05:41:00 PM EST [facility] ([facility]) Name Value Range Interpretation Code Description Data Claribel rce(s) Supporting Document(s) Hemoglobin A1c/Hemoglobin.total in Blood 11.1 % Hemoglobin a1C [facility] ([facility]) estimated average glucose 272 mg/dL 60-110 Above high norm al Estimated Average Glucose [facility] ([facility]) ID Date Data Source [id number] 12/10/2020 05:41:00 PM EST [facility] ([facility]) Name Value Range Interpretation Code Description Data Claribel rce(s) Supporting Document(s) Hemoglobin A1c/Hemoglobin.total in Blood 11.1 % Hemoglobin a1C [facility] ([facility]) estimated average glucose 272 mg/dL 60-110 Above high norm al Estimated Average Glucose [facility] ([facility]) ID Date Data Source [id number] 12/10/2020 05:41:00 PM EST [facility] ([facility]) Name Value Range Interpretation Code Description Data Claribel rce(s) Supporting Document(s) Hemoglobin A1c/Hemoglobin.total in Blood 11.1 % Hemoglobin a1C [facility] ([facility]) estimated average glucose 272 mg/dL 60-110 Above high norm al Estimated Average Glucose [facility] ([facility]) ID Date Data Source [id number] 12/10/2020 05:41:00 PM EST [facility] ([facility]) Name Value Range Interpretation Code Description Data Claribel rce(s) Supporting Document(s) Hemoglobin A1c/Hemoglobin.total in Blood 11.1 % Hemoglobin a1C [facility] ([facility]) estimated average glucose 272 mg/dL 60-110 Above high norm al Estimated Average Glucose [facility] ([facility]) ID Date Data Source [id number] 12/10/2020 05:41:00 PM EST [facility] ([facility]) Name Value Range Interpretation Code Description Data Claribel rce(s) Supporting Document(s) estimated average glucose 272 mg/dL 60-110 Above high norm al Estimated Average Glucose [facility] ([facility]) Hemoglobin A1c/Hemoglobin.total in Blood 11.1 % Hemoglobin a1C [facility] ([facility]) ID Date Data Source [id number] 12/10/2020 05:41:00 PM EST [facility] ([facility]) Name Value Range Interpretation Code Description Data Clariebl rce(s) Supporting Document(s) estimated average glucose 272 mg/dL 60-110 Above high norm al Estimated Average Glucose [facility] ([facility]) Hemoglobin A1c/Hemoglobin.total in Blood 11.1 % Hemoglobin a1C [facility] ([facility]) ID Date Data Source [id number] 12/10/2020 05:09:00 PM EST [facility] ([facility]) Name Value Range Interpretation Code Description Data Claribel rce(s) Supporting Document(s) acetone/ketone > 46.00 <2.81 Above high normal Acetone/ketone [facility] ([facility]) ID Date Data Source [id number] 12/10/2020 05:09:00 PM EST [facility] ([facility]) Name Value Range Interpretation Code Description Data Claribel rce(s) Supporting Document(s) acetone/ketone > 46.00 <2.81 Above high normal Acetone/ketone [facility] ([facility]) ID Date Data Source [id number] 12/10/2020 05:09:00 PM EST [facility] ([facility]) Name Value Range Interpretation Code Description Data Claribel rce(s) Supporting Document(s) acetone/ketone > 46.00 <2.81 Above high normal [facility] Date Data Source [id number] 12/10/2020 05:09:00 PM EST [facility] ([facility]) Name Value Range Interpretation Code Description Data Claribel rce(s) Supporting Document(s) acetone/ketone > 46.00 <2.81 Above high normal Acetone/ketone [facility] ([facility]) ID Date Data Source [id number] 12/10/2020 05:09:00 PM EST [facility] ([facility]) Name Value Range Interpretation Code Description Data Claribel rce(s) Supporting Document(s) acetone/ketone > 46.00 <2.81 Above high normal Acetone/ketone [facility] ([facility]) ID Date Data Source [id number] 12/10/2020 05:09:00 PM EST [facility] ([facility]) Name Value Range Interpretation Code Description Data Claribel rce(s) Supporting Document(s) acetone/ketone > 46.00 <2.81 Above high normal Acetone/ketone [facility] ([facility]) ID Date Data Source [id number] 12/10/2020 05:08:00 PM EST [facility] ([facility]) Name Value Range Interpretation Code Description Data Claribel rce(s) Supporting Document(s) ABG pH (arterial) 7.117 units 7.350-7.450 Below low normal ABG pH (Ar terial) [facility] ([facility]) ABG partial pressure O2 125.1 mmHg 75.0-100.0 Above high normal ABG Partial Pressure O2 [facility] ([facility]) ABG partial pressure CO2 16.7 mmHg 35.0-45.0 Below low normal ABG Partial Pressure CO2 [facility] ([facility]) ABG total CO2 5.8 mEq/L 22.0-29.0 Below low normal ABG Total CO2 AT [facility] ([facility]) ABG base excess -2.0-2.0 Below low normal ABG Base Exces s [facility] ([facility]) ABG HCO3 5.3 mEq/L 22.0-26.0 Below low normal Abg Hco3 [facility] ( [facility]) ABG standard HCO3 9.1 mEq/L 22.0-26.0 Below low normal ABG Standard HCO3 [facility] ([facility]) ABG O2 saturation 98.2 % 95.0-99.0 ABG O2 Saturation [facility] ([facility]) ID Date Data Source [id number] 12/10/2020 05:08:00 PM EST [facility] ([facility]) Name Value Range Interpretation Code Description Data Claribel rce(s) Supporting Document(s) ABG pH (arterial) 7.117 units 7.350-7.450 Below low normal ABG pH (Ar terial) [facility] ([facility]) ABG partial pressure CO2 16.7 mmHg 35.0-45.0 Below low normal ABG Partial Pressure CO2 [facility] ([facility]) ABG total CO2 5.8 mEq/L 22.0-29.0 Below low normal ABG Total CO2 AT [facility] ([facility]) ABG partial pressure O2 125.1 mmHg 75.0-100.0 Above high normal ABG Partial Pressure O2 [facility] ([facility]) ABG standard HCO3 9.1 mEq/L 22.0-26.0 Below low normal ABG Standard HCO3 [facility] ([facility]) ABG HCO3 5.3 mEq/L 22.0-26.0 Below low normal Abg Hco3 [facility] ( [facility]) ABG base excess -2.0-2.0 Below low normal ABG Base Exces s [facility] ([facility]) ABG O2 saturation 98.2 % 95.0-99.0 ABG O2 Saturation [facility] ([facility]) ID Date Data Source [id number] 12/10/2020 05:08:00 PM EST [facility] ([facility]) Name Value Range Interpretation Code Description Data Claribel rce(s) Supporting Document(s) ABG pH (arterial) 7.117 units 7.350-7.450 Below low normal ABG pH (Ar terial) [place] ([facility]) ABG partial pressure CO2 16.7 mmHg 35.0-45.0 Below low normal ABG Partial Pressure CO2 [facility] ([facility]) ABG partial pressure O2 125.1 mmHg 75.0-100.0 Above high normal ABG Partial Pressure O2 [place] ([facility]) ABG total CO2 5.8 mEq/L 22.0-29.0 Below low normal ABG Total CO2 AT [facility] ([facility]) ABG HCO3 5.3 mEq/L 22.0-26.0 Below low normal Abg Hco3 [place] ( [facility]) ABG base excess -2.0-2.0 Below low normal ABG Base Exces s [place] ([facility]) ABG standard HCO3 9.1 mEq/L 22.0-26.0 Below low normal ABG Standard HCO3 [place] ([facility]) ABG O2 saturation 98.2 % 95.0-99.0 ABG O2 Saturation [place] ([facility]) ID Date Data Source [id number] 12/10/2020 05:08:00 PM EST [place] ([facility]) Name Value Range Interpretation Code Description Data Claribel rce(s) Supporting Document(s) ABG partial pressure CO2 16.7 mmHg 35.0-45.0 Below low normal ABG Partial Pressure CO2 [place] ([facility]) ABG pH (arterial) 7.117 units 7.350-7.450 Below low normal ABG pH (Ar terial) [place] ([facility]) ABG partial pressure O2 125.1 mmHg 75.0-100.0 Above high normal ABG Partial Pressure O2 [place] ([facility]) ABG total CO2 5.8 mEq/L 22.0-29.0 Below low normal ABG Total CO2 AT [facility] ([facility]) ABG standard HCO3 9.1 mEq/L 22.0-26.0 Below low normal ABG Standard HCO3 [place] ([facility]) ABG base excess -2.0-2.0 Below low normal ABG Base Exces s [facility] ([facility]) ABG HCO3 5.3 mEq/L 22.0-26.0 Below low normal Abg Hco3 [facility] ( [facility]) ABG O2 saturation 98.2 % 95.0-99.0 ABG O2 Saturation [facility] ([facility]) ID Date Data Source [id number] 12/10/2020 05:08:00 PM EST [facility] ([facility]) Name Value Range Interpretation Code Description Data Claribel rce(s) Supporting Document(s) ABG partial pressure O2 125.1 mmHg 75.0-100.0 Above high normal ABG Partial Pressure O2 [facility] ([facility]) ABG pH (arterial) 7.117 units 7.350-7.450 Below low normal ABG pH (Ar terial) [facility] ([facility]) ABG partial pressure CO2 16.7 mmHg 35.0-45.0 Below low normal ABG Partial Pressure CO2 [facility] ([facility]) ABG HCO3 5.3 mEq/L 22.0-26.0 Below low normal Abg Hco3 [facility] ( [facility]) ABG total CO2 5.8 mEq/L 22.0-29.0 Below low normal ABG Total CO2 AT [facility] ([facility]) ABG base excess -2.0-2.0 Below low normal ABG Base Exces s [facility] ([facility]) ABG standard HCO3 9.1 mEq/L 22.0-26.0 Below low normal ABG Standard HCO3 [facility] ([facility]) ABG O2 saturation 98.2 % 95.0-99.0 ABG O2 Saturation [facility] ([facility]) ID Date Data Source [id number] 12/10/2020 05:08:00 PM EST [facility] ([facility]) Name Value Range Interpretation Code Description Data Claribel rce(s) Supporting Document(s) ABG partial pressure CO2 16.7 mmHg 35.0-45.0 Below low normal ABG Partial Pressure CO2 [facility] ([facility]) ABG partial pressure O2 125.1 mmHg 75.0-100.0 Above high normal ABG Partial Pressure O2 [facility] ([facility]) ABG pH (arterial) 7.117 units 7.350-7.450 Below low normal ABG pH (Ar terial) [facility] ([facility]) ABG HCO3 5.3 mEq/L 22.0-26.0 Below low normal Abg Hco3 [facility] ( [facility]) ABG total CO2 5.8 mEq/L 22.0-29.0 Below low normal ABG Total CO2 AT [place] ([facility]) ABG base excess -2.0-2.0 Below low normal ABG Base Exces s [facility] ([facility]) ABG standard HCO3 9.1 mEq/L 22.0-26.0 Below low normal ABG Standard HCO3 [facility] ([facility]) ABG O2 saturation 98.2 % 95.0-99.0 ABG O2 Saturation [place] ([facility]) ID Date Data Source [id number] 12/10/2020 02:24:00 PM EST [facility] ([facility]) Name Value Range Interpretation Code Description Data Claribel rce(s) Supporting Document(s) istat B-HCG < 5.0 Istat B-HCG [facility] ([facility]) ID Date Data Source [id number] 12/10/2020 02:24:00 PM EST [facility] ([facility]) Name Value Range Interpretation Code Description Data Claribel rce(s) Supporting Document(s) istat B-HCG < 5.0 Istat B-HCG [facility] ([facility]) ID Date Data Source [id number] 12/10/2020 02:24:00 PM EST [facility] ([facility]) Name Value Range Interpretation Code Description Data Claribel rce(s) Supporting Document(s) istat B-HCG < 5.0 Istat B-HCG [facility] ([facility]) ID Date Data Source [id number] 12/10/2020 02:24:00 PM EST [facility] ([facility]) Name Value Range Interpretation Code Description Data Claribel rce(s) Supporting Document(s) istat B-HCG < 5.0 Istat B-HCG [facility] ([facility]) ID Date Data Source [id number] 12/10/2020 02:24:00 PM EST [facility] ([facility]) Name Value Range Interpretation Code Description Data Claribel rce(s) Supporting Document(s) istat B-HCG < 5.0 Istat B-HCG [facility] ([facility]) ID Date Data Source [id number] 12/10/2020 02:24:00 PM EST [facility] ([facility]) Name Value Range Interpretation Code Description Data Claribel rce(s) Supporting Document(s) istat B-HCG < 5.0 Istat B-HCG [facility] ([facility]) ID Date Data Source [id number] 12/10/2020 02:21:00 PM EST [facility] ([facility]) Name Value Range Interpretation Code Description Data Claribel rce(s) Supporting Document(s) istat HCT 46.0 % 38.0-51.0 Istat HCT [facility] ([facility]) istat sodium 136 mEq/L 136-145 Istat Sodium [facility] ([facility]) istat glucose 290 mg/dL 70-105 Above high normal Istat Glucose A [facility] ([facility]) istat potassium 4.8 mEq/L 3.5-5.1 Istat Potassium [facility] ([facility]) istat Ca++ 5.6 mg/dL 4.5-5.3 Above high normal Istat Ca++ [facility] ([facility]) istat CO2 12.0 mm/L 23.0-27.0 Below low normal Istat CO2 [facility] ( [facility]) istat chloride 109 mEq/L 98-109 Istat Chloride [facility] ([facility]) istat BUN 25 mg/dL 8-26 Istat BUN [facility] ([facility]) istat creatinine 1.1 mg/dL 0.6-1.3 Istat Creatinine AT [facility]) ID Date Data Source [id number] 12/10/2020 02:21:00 PM EST [facility] ([facility]) Name Value Range Interpretation Code Description Data Claribel rce(s) Supporting Document(s) istat HCT 46.0 % 38.0-51.0 Istat HCT [facility] ([facility]) istat glucose 290 mg/dL 70-105 Above high normal Istat Glucose A [facility] ([facility]) istat sodium 136 mEq/L 136-145 Istat Sodium [facility] ([facility]) istat chloride 109 mEq/L 98-109 Istat Chloride [facility] ([facility]) istat potassium 4.8 mEq/L 3.5-5.1 Istat Potassium [facility] [place] ([facility]) istat Ca++ 5.6 mg/dL 4.5-5.3 Above high normal Istat Ca++ [facility] ([facility]) istat BUN 25 mg/dL 8-26 Istat BUN [facility] ([facility]) istat CO2 12.0 mm/L 23.0-27.0 Below low normal Istat CO2 [facility] ( [facility]) istat creatinine 1.1 mg/dL 0.6-1.3 Istat Creatinine AT [facility]) ID Date Data Source [id number] 12/10/2020 02:21:00 PM EST [facility] ([facility]) Name Value Range Interpretation Code Description Data Claribel rce(s) Supporting Document(s) istat HCT 46.0 % 38.0-51.0 Istat HCT [facility] ([facility]) istat glucose 290 mg/dL 70-105 Above high normal Istat Glucose A [facility] ([facility]) istat sodium 136 mEq/L 136-145 Istat Sodium [facility] (No [facility]) istat potassium 4.8 mEq/L 3.5-5.1 Istat Potassium AT[facility] ([facility]) istat Ca++ 5.6 mg/dL 4.5-5.3 Above high normal Istat Ca++ [facility] ([facility]) istat CO2 12.0 mm/L 23.0-27.0 Below low normal Istat CO2 [facility] ( [facility]) istat chloride 109 mEq/L 98-109 Istat Chloride [facility] ([facility]) istat BUN 25 mg/dL 8-26 Istat BUN [facility] ([facility]) istat creatinine 1.1 mg/dL 0.6-1.3 Istat Creatinine AT [place] ([facility]) ID Date Data Source [id number] 12/10/2020 02:21:00 PM EST [facility] ([facility]) Name Value Range Interpretation Code Description Data Claribel rce(s) Supporting Document(s) istat HCT 46.0 % 38.0-51.0 Istat HCT [facility] ([facility]) istat glucose 290 mg/dL 70-105 Above high normal Istat Glucose A [facility] ([facility]) istat Ca++ 5.6 mg/dL 4.5-5.3 Above high normal Istat Ca++ [facility] ([facility]) istat sodium 136 mEq/L 136-145 Istat Sodium [facility] ([facility]) istat potassium 4.8 mEq/L 3.5-5.1 Istat Potassium [facility] ([facility]) istat CO2 12.0 mm/L 23.0-27.0 Below low normal Istat CO2 [facility] ( [facility]) istat chloride 109 mEq/L 98-109 Istat Chloride [facility] ([facility]) istat creatinine 1.1 mg/dL 0.6-1.3 Istat Creatinine AT [facility] ([facility]) istat BUN 25 mg/dL 8-26 Istat BUN [facility] ([facility]) ID Date Data Source [id number] 12/10/2020 02:21:00 PM EST [facility] ([facility]) Name Value Range Interpretation Code Description Data Claribel rce(s) Supporting Document(s) istat glucose 290 mg/dL 70-105 Above high normal Istat Glucose A [facility] ([facility]) istat HCT 46.0 % 38.0-51.0 Istat HCT [facility] ([facility]) istat sodium 136 mEq/L 136-145 Istat Sodium [facility] ([facility]) istat potassium 4.8 mEq/L 3.5-5.1 Istat Potassium [facility] ([facility]) istat CO2 12.0 mm/L 23.0-27.0 Below low normal Istat CO2 [facility] ( [facility]) istat chloride 109 mEq/L 98-109 Istat Chloride [facility] ([facility]) istat Ca++ 5.6 mg/dL 4.5-5.3 Above high normal Istat Ca++ [facility] ([facility]) istat BUN 25 mg/dL 8-26 Istat BUN [facility] ([facility]) istat creatinine 1.1 mg/dL 0.6-1.3 Istat Creatinine AT [facility]) ID Date Data Source [id number] 12/10/2020 02:21:00 PM EST [facility] ([facility]) Name Value Range Interpretation Code Description Data Claribel rce(s) Supporting Document(s) istat glucose 290 mg/dL 70-105 Above high normal Istat Glucose A [facility] ([facility]) istat HCT 46.0 % 38.0-51.0 Istat HCT [facility] ([facility]) istat potassium 4.8 mEq/L 3.5-5.1 Istat Potassium [facility] ([facility]) istat sodium 136 mEq/L 136-145 Istat Sodium [facility] ([facility]) istat CO2 12.0 mm/L 23.0-27.0 Below low normal Istat CO2 [facility] ( [facility]) istat chloride 109 mEq/L 98-109 Istat Chloride [place] ([facility]) istat Ca++ 5.6 mg/dL 4.5-5.3 Above high normal Istat Ca++ [place] ([facility]) istat creatinine 1.1 mg/dL 0.6-1.3 Istat Creatinine AT [facility]) istat BUN 25 mg/dL 8-26 Istat BUN [place] ([facility]) ID Date Data Source [id number] 12/10/2020 01:34:00 PM EST [facility]) Name Value Range Interpretation Code Description Data Claribel rce(s) Supporting Document(s) ID Date Data Source [id number] 12/10/2020 01:34:00 PM EST [place] ([facility]) Name Value Range Interpretation Code Description Data Claribel rce(s) Supporting Document(s) appearance, urine rfx hazy clear Appearance, Ur ine Rfx [place] ([facility]) pH,urine rfx 5.0 units 5.0-9.0 pH,urine Rfx [place] ([facility]) color, urine rfx yellow yellow Color, Urine Rfx AT [facility]) protein, urine auto rfx 3+ negative Above high normal Prote in, Urine Auto Rfx [place] ([facility]) specific gravity ur auto rfx 1.002-1.035 Specif ic [place] Ur Auto Rfx [facility] ([facility]) glucose, urine (UA) auto rfx 3+ negative Above high n ormal Glucose, Urine (UA) Auto Rfx [facility] ([facility]) ketone, urine auto rfx 2+ negative Above high normal Ketone , Urine Auto Rfx [place] ([facility]) urobilinogen, urine auto rfx 0.2 mg/dL 0.0-2.0 Urobili nogen, Urine Auto Rfx [facility] ([facility]) bilirubin, urine auto rfx negative negative Bilirubin, Urine Auto Rfx [place] ([facility]) leukocyte esterase ur auto rfx 2+ negative Above high normal Leukocyte Esterase Ur Auto Rfx [place] ([facility]) nitrite, urine auto rfx negative negative Nitrite, Uri ne Auto Rfx [place] ([facility]) WBC, urine auto rfx 16 /hpf 0-3 Above high normal WBC, Urin e Auto Rfx [facility] ([facility]) blood, urine blood rfx 2+ negative Above high normal Blood, Urine Blood Rfx [place] ([facility]) bacteria, urine auto rfx 1+ negative Above high normal Bact eria, Urine Auto Rfx [place] ([facility]) RBC, urine auto rfx 7 /hpf 0-3 Above high normal RBC, Urin e Auto Rfx [place] ([facility]) mucus, urine rfx small negative Mucus, Urine Rfx AT [facility] ([facility]) squam epithelial cell ur aurfx 1 /hpf 0-6 Squam Epithelial Cell Ur Aurfx [facility] ([facility]) hyaline cast, urine auto rfx 0 /lpf 0-1 Hyaline Cast, Urine Auto Rfx [place] ([facility]) ID Date Data Source [id number] 12/10/2020 01:34:00 PM EST [place] ([facility]) Name Value Range Interpretation Code Description Data Claribel rce(s) Supporting Document(s) ID Date Data Source [id number] 12/10/2020 01:34:00 PM EST [facility] ([facility]) Name Value Range Interpretation Code Description Data Claribel rce(s) Supporting Document(s) appearance, urine rfx hazy clear Appearance, Ur ine Rfx [facility] ([facility]) color, urine rfx yellow yellow Color, Urine Rfx AT [place] ([facility]) specific gravity ur auto rfx 1.002-1.035 Specif ic [place] Ur Auto Rfx [facility] ([facility]) pH,urine rfx 5.0 units 5.0-9.0 pH,urine Rfx [facility] (No [facility]) protein, urine auto rfx 3+ negative Above high normal Prote in, Urine Auto Rfx [place] ([facility]) glucose, urine (UA) auto rfx 3+ negative Above high n ormal Glucose, Urine (UA) Auto Rfx [place] ([facility]) ketone, urine auto rfx 2+ negative Above high normal Ketone , Urine Auto Rfx [place] ([facility]) nitrite, urine auto rfx negative negative Nitrite, Uri ne Auto Rfx [place] ([facility]) bilirubin, urine auto rfx negative negative Bilirubin, Urine Auto Rfx [place] ([facility]) urobilinogen, urine auto rfx 0.2 mg/dL 0.0-2.0 Urobili nogen, Urine Auto Rfx [place] ([facility]) blood, urine blood rfx 2+ negative Above high normal Blood, Urine Blood Rfx [place] ([facility]) leukocyte esterase ur auto rfx 2+ negative Above high normal Leukocyte Esterase Ur Auto Rfx [facility] ([facility]) WBC, urine auto rfx 16 /hpf 0-3 Above high normal WBC, Urin e Auto Rfx [facility] ([facility]) RBC, urine auto rfx 7 /hpf 0-3 Above high normal RBC, Urin e Auto Rfx [place] ([facility]) bacteria, urine auto rfx 1+ negative Above high normal Bact eria, Urine Auto Rfx [place] ([facility]) squam epithelial cell ur aurfx 1 /hpf 0-6 Squam Epithelial Cell Ur Aurfx [facility] ([facility]) mucus, urine rfx small negative Mucus, Urine Rfx AT [facility] ([facility]) hyaline cast, urine auto rfx 0 /lpf 0-1 Hyaline Cast, Urine Auto Rfx [place] ([facility]) ID Date Data Source [id number] 12/10/2020 01:34:00 PM EST [place] ([facility]) Name Value Range Interpretation Code Description Data Claribel rce(s) Supporting Document(s) ID Date Data Source [id number] 12/10/2020 01:34:00 PM EST [facility] ([facility]) Name Value Range Interpretation Code Description Data Claribel rce(s) Supporting Document(s) appearance, urine rfx hazy clear Appearance, Ur ine Rfx [place] ([facility]) color, urine rfx yellow yellow Color, Urine Rfx AT [facility] ([facility]) pH,urine rfx 5.0 units 5.0-9.0 pH,urine Rfx [facility] (No [facility]) glucose, urine (UA) auto rfx 3+ negative Above high n ormal Glucose, Urine (UA) Auto Rfx [place] ([facility]) specific gravity ur auto rfx 1.002-1.035 Specif ic [place] Ur Auto Rfx [place] ([facility]) protein, urine auto rfx 3+ negative Above high normal Prote in, Urine Auto Rfx [place] ([facility]) ketone, urine auto rfx 2+ negative Above high normal Ketone , Urine Auto Rfx [place] ([facility]) urobilinogen, urine auto rfx 0.2 mg/dL 0.0-2.0 Urobili nogen, Urine Auto Rfx [place] ([facility]) bilirubin, urine auto rfx negative negative Bilirubin, Urine Auto Rfx [place] ([facility]) nitrite, urine auto rfx negative negative Nitrite, Uri ne Auto Rfx [place] ([facility]) leukocyte esterase ur auto rfx 2+ negative Above high normal Leukocyte Esterase Ur Auto Rfx [place] ([facility]) blood, urine blood rfx 2+ negative Above high normal Blood, Urine Blood Rfx [place] ([facility]) RBC, urine auto rfx 7 /hpf 0-3 Above high normal RBC, Urin e Auto Rfx [place] ([facility]) WBC, urine auto rfx 16 /hpf 0-3 Above high normal WBC, Urin e Auto Rfx [place] ([facility]) bacteria, urine auto rfx 1+ negative Above high normal Bact eria, Urine Auto Rfx [place] ([facility]) squam epithelial cell ur aurfx 1 /hpf 0-6 Squam Epithelial Cell Ur Aurfx [place] ([facility]) mucus, urine rfx small negative Mucus, Urine Rfx AT [facility] ([facility]) hyaline cast, urine auto rfx 0 /lpf 0-1 Hyaline Cast, Urine Auto Rfx [place] ([facility]) ID Date Data Source [id number] 12/10/2020 01:34:00 PM EST [place] ([facility]) Name Value Range Interpretation Code Description Data Claribel rce(s) Supporting Document(s) ID Date Data Source [id number] 12/10/2020 01:34:00 PM EST [place] ([facility]) Name Value Range Interpretation Code Description Data Claribel rce(s) Supporting Document(s) appearance, urine rfx hazy clear Appearance, Ur ine Rfx [place] ([facility]) pH,urine rfx 5.0 units 5.0-9.0 pH,urine Rfx [facility] ([facility]) color, urine rfx yellow yellow Color, Urine Rfx AT [facility] ([facility]) glucose, urine (UA) auto rfx 3+ negative Above high n ormal Glucose, Urine (UA) Auto Rfx [place] ([facility]) protein, urine auto rfx 3+ negative Above high normal Prote in, Urine Auto Rfx [place] ([facility]) specific gravity ur auto rfx 1.002-1.035 Specif ic [place] Ur Auto Rfx [place] ([facility]) urobilinogen, urine auto rfx 0.2 mg/dL 0.0-2.0 Urobili nogen, Urine Auto Rfx [facility] ([facility]) ketone, urine auto rfx 2+ negative Above high normal Ketone , Urine Auto Rfx CYNDI ([facility]) nitrite, urine auto rfx negative negative Nitrite, Uri ne Auto Rfx CYNDI ([facility]) bilirubin, urine auto rfx negative negative Bilirubin, Urine Auto Rfx CYNDI ([facility]) leukocyte esterase ur auto rfx 2+ negative Above high normal Leukocyte Esterase Ur Auto Rfx CYNDI ([facility]) RBC, urine auto rfx 7 /hpf 0-3 Above high normal RBC, Urin e Auto Rfx CYNDI ([facility]) WBC, urine auto rfx 16 /hpf 0-3 Above high normal WBC, Urin e Auto Rfx [facility] ([facility]) blood, urine blood rfx 2+ negative Above high normal Blood, Urine Blood Rfx CYNDI ([facility]) bacteria, urine auto rfx 1+ negative Above high normal Bact eria, Urine Auto Rfx CYNDI ([facility]) squam epithelial cell ur aurfx 1 /hpf 0-6 Squam Epithelial Cell Ur Aurfx CNYDI ([facility]) hyaline cast, urine auto rfx 0 /lpf 0-1 Hyaline Cast, Urine Auto Rfx CYNDI ([facility]) mucus, urine rfx small negative Mucus, Urine Rfx AT BEL[place] ([facility]) ID Date Data Source [id number] 12/10/2020 01:34:00 PM EST [facility] ([facility]) Name Value Range Interpretation Code Description Data Claribel rce(s) Supporting Document(s) ID Date Data Source [id number] 12/10/2020 01:34:00 PM EST [facility] ([facility]) Name Value Range Interpretation Code Description Data Claribel rce(s) Supporting Document(s) appearance, urine rfx hazy clear Appearance, Ur ine Rfx CYNDI ([facility]) color, urine rfx yellow yellow Color, Urine Rfx AT [facility] ([facility]) specific gravity ur auto rfx 1.002-1.035 Specif ic [place] Ur Auto Rfx CYNDI ([facility]) pH,urine rfx 5.0 units 5.0-9.0 pH,urine Rfx CYNDI ([facility]) protein, urine auto rfx 3+ negative Above high normal Prote in, Urine Auto Rfx CYNDI ([facility]) glucose, urine (UA) auto rfx 3+ negative Above high n ormal Glucose, Urine (UA) Auto Rfx [facility] ([facility]) urobilinogen, urine auto rfx 0.2 mg/dL 0.0-2.0 Urobili nogen, Urine Auto Rfx [place] ([facility]) ketone, urine auto rfx 2+ negative Above high normal Ketone , Urine Auto Rfx [place] ([facility]) leukocyte esterase ur auto rfx 2+ negative Above high normal Leukocyte Esterase Ur Auto Rfx CYNDI ([facility]) bilirubin, urine auto rfx negative negative Bilirubin, Urine Auto Rfx [place] ([facility]) nitrite, urine auto rfx negative negative Nitrite, Uri ne Auto Rfx [facility] ([facility]) WBC, urine auto rfx 16 /hpf 0-3 Above high normal WBC, Urin e Auto Rfx [facility] ([facility]) blood, urine blood rfx 2+ negative Above high normal Blood, Urine Blood Rfx [place] ([facility]) bacteria, urine auto rfx 1+ negative Above high normal Bact eria, Urine Auto Rfx CYNDI ([facility]) RBC, urine auto rfx 7 /hpf 0-3 Above high normal RBC, Urin e Auto Rfx [place] ([facility]) squam epithelial cell ur aurfx 1 /hpf 0-6 Squam Epithelial Cell Ur Aurfx [place] ([facility]) mucus, urine rfx small negative Mucus, Urine Rfx AT [facility] ([facility]) hyaline cast, urine auto rfx 0 /lpf 0-1 Hyaline Cast, Urine Auto Rfx [facility] ([facility]) ID Date Data Source [id number] 12/10/2020 01:34:00 PM [place] ([facility]) Name Value Range Interpretation Code Description Data Claribel rce(s) Supporting Document(s) ID Date Data Source [id number] 12/10/2020 01:34:00 PM [place] ([facility]) Name Value Range Interpretation Code Description Data Claribel rce(s) Supporting Document(s) appearance, urine rfx hazy clear Appearance, Ur ine Rfx [place] ([facility]) color, urine rfx yellow yellow Color, Urine Rfx AT [facility] ([facility]) protein, urine auto rfx 3+ negative Above high normal Prote in, Urine Auto Rfx [place] ([facility]) specific gravity ur auto rfx 1.002-1.035 Specif ic [place] Ur Auto Rfx [facility] ([facility]) pH,urine rfx 5.0 units 5.0-9.0 pH,urine Rfx CYNDI (No [facility]) glucose, urine (UA) auto rfx 3+ negative Above high n ormal Glucose, Urine (UA) Auto Rfx [place] ([facility]) ketone, urine auto rfx 2+ negative Above high normal Ketone , Urine Auto Rfx [place] ([facility]) nitrite, urine auto rfx negative negative Nitrite, Uri ne Auto Rfx [place] ([facility]) urobilinogen, urine auto rfx 0.2 mg/dL 0.0-2.0 Urobili nogen, Urine Auto Rfx [place] ([facility]) bilirubin, urine auto rfx negative negative Bilirubin, Urine Auto Rfx [place] ([facility]) leukocyte esterase ur auto rfx 2+ negative Above high normal Leukocyte Esterase Ur Auto Rfx [place] ([facility]) blood, urine blood rfx 2+ negative Above high normal Blood, Urine Blood Rfx [place] ([facility]) WBC, urine auto rfx 16 /hpf 0-3 Above high normal WBC, Urin e Auto Rfx CYNDI ([facility]) RBC, urine auto rfx 7 /hpf 0-3 Above high normal RBC, Urin e Auto Rfx CYNDI ([facility]) bacteria, urine auto rfx 1+ negative Above high normal Bact eria, Urine Auto Rfx [place] ([facility]) hyaline cast, urine auto rfx 0 /lpf 0-1 Hyaline Cast, Urine Auto Rfx CYNDI ([facility]) mucus, urine rfx small negative Mucus, Urine Rfx AT [facility] ([facility]) squam epithelial cell ur aurfx 1 /hpf 0-6 Squam Epithelial Cell Ur Aurfx [place] ([facility]) ID Date Data Source [id number] 12/10/2020 01:04:00 PM EST CYNDI ([facility]) Name Value Range Interpretation Code Description Data Claribel rce(s) Supporting Document(s) bedside glucose 256 mg/dL 70-105 Above high normal Bedside Gluco se [facility] ([facility]) ID Date Data Source [id number] 12/10/2020 01:04:00 PM EST [facility] ([facility]) Name Value Range Interpretation Code Description Data Claribel rce(s) Supporting Document(s) bedside glucose 256 mg/dL 70-105 Above high normal Bedside Gluco se [place] ([facility]) ID Date Data Source [id number] 12/10/2020 01:04:00 PM EST CYNDI ([facility]) Name Value Range Interpretation Code Description Data Claribel rce(s) Supporting Document(s) bedside glucose 256 mg/dL 70-105 Above high normal Bedside Gluco se [place] ([facility]) ID Date Data Source [id number] 12/10/2020 01:04:00 PM EST CYNDI ([facility]) Name Value Range Interpretation Code Description Data Claribel rce(s) Supporting Document(s) bedside glucose 256 mg/dL 70-105 Above high normal Bedside Gluco se CYNDI ([facility]) ID Date Data Source [id number] 12/10/2020 01:04:00 PM EST CYNDI ([facility]) Name Value Range Interpretation Code Description Data Claribel rce(s) Supporting Document(s) bedside glucose 256 mg/dL 70-105 Above high normal Bedside Gluco se CYNDI ([facility]) ID Date Data Source [id number] 10/01/2020 12:00:00 AM EST GIANA Name Value Range Interpretation Code Description Data Claribel rce(s) Supporting Document(s) SARS coronavirus 2 RNA [Presence] in Res piratory specimen by ANDREE with probe detection [place]OH This lab was ordered by Nell Yates and reported by [employer]. ID Date Data Source [id number] 08/19/2020 10:29:50 AM EDT [facility] Name Value Range Interpretation Code Description Data Claribel rce(s) Supporting Document(s) Progress Note [facility] TVLSGk0wIwCGArLb49/RXZuuUHPlm0HxBHutMGw3PDvnPOJdG7QjVIA6tB6dNHJ7CJpAVqVfVxEiJKO1 m [file] ssis etl developer/ylIRQ3RgohhlwoOAFszmR3B/GNo1LrNO5c24ebW eRs0/sc/OMa5O2wGh9kzkS3pD+0yrPmleqSQr4PgIYikpEe6VRIzyywEEM5FYcsS3bwvTpG6PYTR56ch Nb8CMrfjJOt5Uj811ZDKw3RUgdEE6RBSpaJ1vete6aPhYrxhF3Mw/cpUpW5g1ugW/ur0MkaqaO1GcSTl Eh/ULn4zrJokLoi9yz0v4ruqkskZijIL7mGo0ZSA7O y3mM7H7rrzfnHrE2qh//zuk18PLVY97wqvhyP63k9TdeZc1cLDr2WomE6R09dSSWteF72SBd6L0klC4S sFhI9CoOTafrdvQUoOjPFe492A0Fm1ICVttWMx1Q8LOYr5woFD8nVri22+mscvAWndVboClsfQUvqMXf CWV9xZGIhhKWd09Bahr7L560d9crXEUuhUeejWh61r dgkavBZrn5suv6CzDCpvJaQajuddwMfFIdspbNzqel7bnqbFlHjc9rr26AbVxPmuYTh5oIcXnDLQfah4 Gv2UnsLmu0g3Kt81yVEvGZF7jG3l/3Mne4DRWQP54cl9h4nx9SujHNt6L2tVU5Txr+kvQqSv+vt0jbAA /KsN3zUoWMND4/NcWr+PNovCxNdz+N4dLvVQ55tV2X 29NHJtO4M64jc7DEO7G5wucfHotX/mzuDqnWqi4C7BlIGhaDKXXBjbkWIviLMNcjeQf0S7lzPdTutYM+ 0eX9SY9O9rhiPmh+LVb8+brq+2uhuCm/Pq9G1+eDOCT0N9v/AfM9+fg/Rk5flX3IZC3jq6TrSXEpJYai bmRvYmoNCjcgMCBvYmoNCiAgPDwNCiAgICAvVHlwZS [file] y/sUZcG/FMQ1fK7AscsP6OGexap9lNQh/wb+Wi [file] Q6HXD8rFVrWr0LRYXiXRRSXjKkAZ6GPOb= Procedure Social History Code Duration Value Status Description Data Source(s ) Smoking 03/26/2021 12:00:00 AM EDT Patient has never smoked co mpleted Patient has never smoked MEDENT ([facility], [facility]) Alcohol intake 02/20/2021 12:00:00 AM EDT Current non-d clyde of alcohol (finding) completed Current non-drinker of alcohol (finding) [facility] Tobacco use and exposure 02/20/2021 12:00:00 AM EDT Never used co mpleted Never used [facility] Smoking 02/20/2021 12:00:00 AM EDT Never smoker completed Never s wyker [facility] Alcohol intake 08/19/2020 12:00:00 AM EDT Current non-d clyde of alcohol (finding) completed Current non-drinker of alcohol (finding) [facility] Vital Signs ID Date Data Source UNK Name Value Range Interpretation Code Description Data Source(s) Diastolic blood pressure 73 mm[Hg] 73 mm[Hg] [facility]) Body height 64 [in_i] 64 [in_i] CYNDI ([facility]) Body mass index (BMI) [Ratio] 26 kg/m2 26 kg/ m2 [facility] ([facility]) Systolic blood pressure 105 mm[Hg] 105 mm[Hg] A [facility] ([facility]) Body weight 2420 [oz_av] 2420 [oz_av] CYNDI ([facility]) Body height 64 [in_i] 64 [in_i] CYNDI ([facility]) Body height 64 [in_i] 64 [in_i] CYNDI ([facility]) Diastolic blood pressure 81 mm[Hg] 81 mm[Hg] CYNDI ([facility]) Body height 64 [in_i] 64 [in_i] [facility] Body mass index (BMI) [Ratio] 25.2 kg/m2 25.2 k g/m2 CYNDI ([facility]) Systolic blood pressure 112 mm[Hg] 112 mm[Hg] A [facility] ([facility]) Body weight 2352 [oz_av] 2352 [oz_av] CYNDI ([facility]) Diastolic blood pressure 81 mm[Hg] 81 mm[Hg] CYNDI ([facility]) Body height 64 [in_i] 64 [in_i] CYNDI ([facility]) Body mass index (BMI) [Ratio] 25.2 kg/m2 25.2 k g/m2 CYNDI ([facility]) Systolic blood pressure 112 mm[Hg] 112 mm[Hg] A DAYNEA ([facility]) Body weight 2352 [oz_av] 2352 [oz_av] CYNDI ([facility]) Diastolic blood pressure 81 mm[Hg] 81 mm[Hg] CYNDI ([facility]) Body height 64 [in_i] 64 [in_i] CYNDI ([facility]) Body mass index (BMI) [Ratio] 25.2 kg/m2 25.2 k g/m2 CYNDI ([facility]) Systolic blood pressure 112 mm[Hg] 112 mm[Hg] A THENA ([facility]) Body weight 2352 [oz_av] 2352 [oz_av] CYNDI ([facility]) Systolic blood pressure 138 mm[Hg] 138 mm[Hg] M EDENT ([facility], [facility]) Respiratory rate 18 /min 18 /min MEDENT ( [facility], [facility]) Body temperature 98.2 [degF] 98.2 [degF] MEDENT ([facility], [facility]) Diastolic blood pressure 91 mm[Hg] 91 mm[Hg] MEDENT ([facility], [facility]) Body weight 146.00 [lb_av] 146.00 [lb_av] MEDEN T ([facility], [facility]) Body height 64 [in_i] 64 [in_i] MEDENT ([facility], [facility]) 5'4" Heart rate 103 /min 103 /min MEDENT ([facility], [facility]) Body mass index (BMI) [Ratio] 25.1 kg/m2 25.1 k g/m2 MEDENT ([facility], [facility]) Oxygen saturation in Arterial blood by Pulse oximetry 97 % 97 % MEDENT ([facility], [facility]) Diastolic blood pressure 92 mm[Hg] 92 mm[Hg] CYNDI ([facility]) Body mass index (BMI) [Ratio] 26.1 kg/m2 26.1 k g/m2 CYNDI ([facility]) Systolic blood pressure 134 mm[Hg] 134 mm[Hg] A THENA ([facility]) Body weight 2432 [oz_av] 2432 [oz_av] CYNDI ([facility]) Body height 64 [in_i] 64 [in_i] CYNDI ([facility]) Diastolic blood pressure 92 mm[Hg] 92 mm[Hg] CYNDI ([facility]) Body weight 2432 [oz_av] 2432 [oz_av] CYNDI ([facility]) Body height 64 [in_i] 64 [in_i] CYNDI ([facility]) Body mass index (BMI) [Ratio] 26.1 kg/m2 26.1 k g/m2 CYNDI ([facility]) Systolic blood pressure 134 mm[Hg] 134 mm[Hg] [facility]) Diastolic blood pressure 92 mm[Hg] 92 mm[Hg] CYNDI ([facility]) Body height 64 [in_i] 64 [in_i] CYNDI ([facility]) Body mass index (BMI) [Ratio] 26.1 kg/m2 26.1 k g/m2 CYNDI ([facility]) Systolic blood pressure 134 mm[Hg] 134 mm[Hg] A THENA ([facility]) Body weight 2432 [oz_av] 2432 [oz_av] CYNDI ([facility]) Diastolic blood pressure 92 mm[Hg] 92 mm[Hg] CYNDI ([facility]) Body height 64 [in_i] 64 [in_i] CYNDI ([facility]) Body mass index (BMI) [Ratio] 26.1 kg/m2 26.1 k g/m2 CYNDI ([facility]) Systolic blood pressure 134 mm[Hg] 134 mm[Hg] A THENA ([facility]) Body weight 2432 [oz_av] 2432 [oz_av] CYNDI ([facility]) Diastolic blood pressure 92 mm[Hg] 92 mm[Hg] CYNDI ([facility]) Body height 64 [in_i] 64 [in_i] CYNDI ([facility]) Body mass index (BMI) [Ratio] 26.1 kg/m2 26.1 k g/m2 CYNDI ([facility]) Systolic blood pressure 134 mm[Hg] 134 mm[Hg] [facility] Body weight 2432 [oz_av] 2432 [oz_av] CYNDI ([facility]) Diastolic blood pressure 92 mm[Hg] 92 mm[Hg] CYNDI ([facility]) Body height 64 [in_i] 64 [in_i] YCNDI ([facility]) Body mass index (BMI) [Ratio] 26.1 kg/m2 26.1 k g/m2 CYNDI ([facility]) Systolic blood pressure 134 mm[Hg] 134 mm[Hg] [facility]) Body weight 2432 [oz_av] 2432 [oz_av] CYNDI ([facility]) Diastolic blood pressure 66 mm[Hg] 66 mm[Hg] CYNDI ([facility]) Body height 64 [in_i] 64 [in_i] CYNDI ([facility]) Body mass index (BMI) [Ratio] 25.2 kg/m2 25.2 k g/m2 CYNDI ([facility]) Systolic blood pressure 105 mm[Hg] 105 mm[Hg] A THENA ([facility]) Body weight 2352 [oz_av] 2352 [oz_av] CYNDI ([facility]) Diastolic blood pressure 66 mm[Hg] 66 mm[Hg] CYNDI ([facility]) Body height 64 [in_i] 64 [in_i] CYNDI ([facility]) Body mass index (BMI) [Ratio] 25.2 kg/m2 25.2 k g/m2 CYNDI ([facility]) Systolic blood pressure 105 mm[Hg] 105 mm[Hg] [facility]) Body weight 2352 [oz_av] 2352 [oz_av] CYNDI ([facility]) Diastolic blood pressure 66 mm[Hg] 66 mm[Hg] CYNDI ([facility]) Body height 64 [in_i] 64 [in_i] CYNDI ([facility]) Body mass index (BMI) [Ratio] 25.2 kg/m2 25.2 k g/m2 CYNDI ([facility]) Systolic blood pressure 105 mm[Hg] 105 mm[Hg] [facility]) Body weight 2352 [oz_av] 2352 [oz_av] CYNDI ([facility]) Diastolic blood pressure 66 mm[Hg] 66 mm[Hg] CYNDI ([facility]) Body height 64 [in_i] 64 [in_i] CYNDI ([facility]) Body mass index (BMI) [Ratio] 25.2 kg/m2 25.2 k g/m2 CYNDI ([facility]) Systolic blood pressure 105 mm[Hg] 105 mm[Hg] [facility]) Body weight 2352 [oz_av] 2352 [oz_av] CYNDI ([facility]) Diastolic blood pressure 66 mm[Hg] 66 mm[Hg] CYNDI ([facility]) Body height 64 [in_i] 64 [in_i] CYNDI ([facility]) Body mass index (BMI) [Ratio] 25.2 kg/m2 25.2 k g/m2 CYNDI ([facility]) Systolic blood pressure 105 mm[Hg] 105 mm[Hg] A THENA ([facility]) Body weight 2352 [oz_av] 2352 [oz_av] CYNDI ([facility]) Diastolic blood pressure 66 mm[Hg] 66 mm[Hg] CYNDI ([facility]) Body height 64 [in_i] 64 [in_i] CYNDI ([facility]) Body mass index (BMI) [Ratio] 25.2 kg/m2 25.2 k g/m2 CYNDI ([facility]) Systolic blood pressure 105 mm[Hg] 105 mm[Hg] A THENA ([facility]) Body weight 2352 [oz_av] 2352 [oz_av] CYNDI ([facility]) Body weight 2352 [oz_av] 2352 [oz_av] CYNDI ([facility]) Diastolic blood pressure 66 mm[Hg] 66 mm[Hg] CYNDI ([facility]) Body height 64 [in_i] 64 [in_i] CYNDI ([facility]) Body mass index (BMI) [Ratio] 25.2 kg/m2 25.2 k g/m2 CYNDI ([facility]) Systolic blood pressure 105 mm[Hg] 105 mm[Hg] A THENA ([facility]) ID Date Data Source [id number] 08/19/2020 10:38:24 AM [facility] Name Value Range Interpretation Code Description Data Source(s) WEIGHT RECORDED 155 lb 155 lb [facility] Body height Measured 64.5 in 64.5 in [facility] Patient Treatment Plan of Care Planned Activity Planned Date Details Description Data Source (s) OneTouch Ultra In Vitro Strip 05/28/2021 12:00:00 AM [facility] Tresiba FlexTouch 100 UNIT/ML Subcutaneo us Solution Pen-injector (insulin degludec) 05/28/2021 12:00:00 AM [facility] Baqsimi One Pack 3 MG/DOSE Nasal Powder (Glucagon) 05/28/2021 12 :00:00 AM [facility] Insulin Pen Needle 31G X 6 MM 02/20/2021 12:00:00 AM [facility] Insulin, Aspart, Human 100 UNT/ML Injectable Solution 02/05/2021 12:00:00 AM [facility] ospital OneTouch Ultra In Vitro Strip 11/03/2020 12:00:00 AM [facility] Insulin Syringe 31G X 5/16" 1 ML 09/19/2020 12:00:00 AM [facility] Adhesive Remover Wipes XL 07/02/2020 12:00:00 AM [facility] Dexcom G6 Public Address System Installer Device 07/02/2020 12:00:00 AM [facility] Dexcom G6 Sensor 07/02/2020 12:00:00 AM [facility] Dexcom G6 Transmitter 07/02/2020 12:00:00 AM [facility] Tegaderm Film 4"x4-3/4" 07/02/2020 12:00:00 AM [facility] Insulin Degludec 100 UNIT/ML Subcutaneou s Solution Pen-injector (Tresiba FlexTouch) 04/01/2020 12:00:00 AM [facility] Ergocalciferol 40187 UNT Oral Capsule 11/23/2019 12:00:00 AM [facility] Glucagon 3 MG/DOSE Nasal Powder (BAQSIMI ONE PACK) 10/29/2019 12 :00:00 AM [facility] Glucagon 1 MG Injection 10/11/2018 12:00:00 AM [facility] Unifine Pentips 31 gauge x 1/4" needle U SE DIRECTED WITH TRESIBA AND NOVOLOG PENS UP TO 6 TIMES DAILY [facility] ([facility]) Prednisone 20 MG Oral Tablet [facility] ([facility]) Phosphorous Supplement 280 mg-160 mg-250 mg oral powder packet MIX 1 PACKET AND DRINK THREE TIMES DAILY TECOPA ( [facility]) OneTouch Ultra Test strips USE INSTRUCTED 6 TIMES DAILY TO CH SUZANNA SUGARS CYNDI ([facility] er) OneTouch Ultra Blue Test Strip USE TO CHECK BLOOD GLUCOSE 6 TIMES D [facility]A ([facility]) Insulin, Aspart, Human 100 UNT/ML Injectable Solution [NovoLog] T[facility]A ([facility]) Lisinopril 5 MG Oral Tablet CYNDI ([facility]) Lisinopril 10 MG Oral Tablet CYNDI ([facility]) insulin syringe U-100 with needle 1 mL 31 gauge x 5/16" CYNDI ([facility]) Ibuprofen 600 MG Oral Tablet CYNDI ([facility]) Ergocalciferol 79136 UNT Oral Capsule CYNDI ([facility]) Dexamethasone 1 MG/ML Ophthalmic Solution CYNDI ([facility]) Ciprofloxacin 3 MG/ML Ophthalmic Solution [facility] ([facility]) Cholecalciferol 2000 UNT Oral Tablet CYNDI ([facility]) Cholecalciferol 86684 UNT Oral Capsule [facility] ([facility] [facility]) Baqsimi 3 mg/actuation nasal spray SPRAY 3MG IN ONE NOSTRIL TO TREAT SEVERE HYPOGLYCEMIA CYNDI ([facility]) atorvastatin 40 MG Oral Tablet CYNDI ([facility]) atorvastatin 20 MG Oral Tablet CYNDI ([facility]) Cholecalciferol 5000 UNT Oral Capsule [facility] Prednisone 20 MG Oral Tablet CYNDI ([facility]) Phosphorous Supplement 280 mg-160 mg-250 mg oral powder packet MIX 1 PACKET AND DRINK THREE TIMES DAILY CYNDI ( [facility]) Insulin, Aspart, Human 100 UNT/ML Injectable Solution [NovoLog] CYNDI ([facility]) Lisinopril 5 MG Oral Tablet CYNDI ([facility]) Lisinopril 10 MG Oral Tablet CYNDI ([facility]) Ibuprofen 600 MG Oral Tablet CYNDI ([facility]) Ergocalciferol 24108 UNT Oral Capsule CYNDI ([facility]) Dexamethasone 1 MG/ML Ophthalmic Solution CYNDI ([facility]) Ciprofloxacin 3 MG/ML Ophthalmic Solution CYNDI ([facility]) Cholecalciferol 2000 UNT Oral Tablet CYNDI ([facility]) Cholecalciferol 52732 UNT Oral Capsule CYNDI ([facility]) Baqsimi 3 mg/actuation nasal spray SPRAY 3MG IN ONE NOSTRIL TO TREAT SEVERE HYPOGLYCEMIA CYNDI ([facility]) atorvastatin 40 MG Oral Tablet CYNDI ([facility]) atorvastatin 20 MG Oral Tablet CYNDI ([facility]) Prednisone 20 MG Oral Tablet CYNDI ([facility]) Phosphorous Supplement 280 mg-160 mg-250 mg oral powder packet MIX 1 PACKET AND DRINK THREE TIMES DAILY CYNDI ( [facility]) Insulin, Aspart, Human 100 UNT/ML Injectable Solution [NovoLog] CYNDI ([facility]) Lisinopril 5 MG Oral Tablet CYNDI ([facility]) Lisinopril 10 MG Oral Tablet CYNDI ([facility]) Ibuprofen 600 MG Oral Tablet CYNDI ([facility]) Ergocalciferol 38541 UNT Oral Capsule CYNDI ([facility]) Dexamethasone 1 MG/ML Ophthalmic Solution CYNDI ([facility]) Ciprofloxacin 3 MG/ML Ophthalmic Solution CYNDI ([facility]) Cholecalciferol 2000 UNT Oral Tablet CYNDI ([facility]) Cholecalciferol 50088 UNT Oral Capsule CYNDI ([facility]) Baqsimi 3 mg/actuation nasal spray SPRAY 3MG IN ONE NOSTRIL TO TREAT SEVERE HYPOGLYCEMIA CYNDI ([facility]) atorvastatin 40 MG Oral Tablet CYNDI ([facility]) atorvastatin 20 MG Oral Tablet CYNDI ([facility]) Prednisone 20 MG Oral Tablet CYNDI ([facility]) Phosphorous Supplement 280 mg-160 mg-250 mg oral powder packet MIX 1 PACKET AND DRINK THREE TIMES DAILY CYNDI ( [facility]) Lisinopril 5 MG Oral Tablet CYNDI ([facility]) Ergocalciferol 97289 UNT Oral Capsule CYNDI ([facility]) Cholecalciferol 2000 UNT Oral Tablet CYNDI ([facility]) Baqsimi 3 mg/actuation nasal spray SPRAY 3MG IN ONE NOSTRIL TO TREAT SEVERE HYPOGLYCEMIA CYNDI ([facility]) atorvastatin 20 MG Oral Tablet CYNDI ([facility]) Lisinopril 5 MG Oral Tablet CYNDI ([facility]) Ergocalciferol 63282 UNT Oral Capsule CYNDI ([facility]) Cholecalciferol 2000 UNT Oral Tablet CYNDI ([facility]) Baqsimi 3 mg/actuation nasal spray SPRAY 3MG IN ONE NOSTRIL TO TREAT SEVERE HYPOGLYCEMIA CYNDI ([facility]) atorvastatin 20 MG Oral Tablet CYNDI ([facility]) Prednisone 20 MG Oral Tablet CYNDI ([facility]) Phosphorous Supplement 280 mg-160 mg-250 mg oral powder packet MIX 1 PACKET AND DRINK THREE TIMES DAILY CYNDI ( [facility]) Lisinopril 5 MG Oral Tablet CYNDI ([facility]) Ergocalciferol 09241 UNT Oral Capsule CYNDI ([facility]) Cholecalciferol 2000 UNT Oral Tablet CYNDI ([facility]) Baqsimi 3 mg/actuation nasal spray SPRAY 3MG IN ONE NOSTRIL TO TREAT SEVERE HYPOGLYCEMIA CYNDI ([facility]) atorvastatin 20 MG Oral Tablet CYNDI ([facility]) Prednisone 20 MG Oral Tablet CYNDI ([facility]) Phosphorous Supplement 280 mg-160 mg-250 mg oral powder packet MIX 1 PACKET AND DRINK THREE TIMES DAILY CYDNI ( [facility])
[2021-10-19] MEDS ORDERED: diphenhydrAMINE 50MG/ML VIAL (J1200) IM STA (05:34)
[2021-10-19] MEDS ORDERED: methylPREDNISolone 125MG 2ML VIAL IM ONE (05:35)
[2021-10-19] MEDS ORDERED: VANCOMYCIN HCL 1,000 MG, VIAL MATE ADAPTER 1 EACH in NS 250 ML IV ONE (06:15)
[2021-10-19] MEDS ORDERED: NS 1,000 ML IV ONE ×2 (06:15→11:00)
--- OUTSIDE RECORDS SUMMARY | 2021-10-19 06:21 | CCD ---
Author Author [facility] Organization [facility] Address Unknown Phone Unavailable Support Name Relationship Address Phone Rosibel Philippe Next Of Kin Unknown Unavailable MCDONCARNANCY Next Of Kin [address] [place] [address] [employer] Next Of Kin [address] [place] [address] Nikki Flowers Next Of Kin [address] [facility] [place] [address] ROSIBEL TONEY Next Of Kin [address] [place] [address] JAMES EVANS Next Of Kin [address] [facility] [address] [place] [address] SYL Next Of Kin [address] [place] [address] ROSIBEL ADLER Next Of Kin [address] [place] [address] MING LOPEZ Next Of Kin [address] [facility] [address] [place] [address] Unavailable MELODIE BURNETT Next Of Kin Unknown [employer] (MCDONAL Next Of Kin [address] [facility] [address] [place] [address] CYNDI MCKEON Next Of Kin [address] [place] [address] MCDONALDS Next Of Kin [address] [place] [address] NEISHA TERESA Next Of Kin [address] [place] [address] ST Next Of Kin Unknown Unavailable ABIMBOLA BURNETT Next Of Kin [address] [place] [address] AMIE Next Of Kin [address] [place] [address] ANGEL BURNETT Next Of Kin [address] [place] [address] MAXIMILIANOO, (HC PROXY) MELODIE Next Of Kin [address] [place] [address] Care Team Providers Care Adjunct Philosophy Faculty Name Role Phone Chris Lentz MD Unavailable [...] Maring, Bashir PA Unavailable Unavailable Jonah, Nikki SURGICAL SCRUB TECHNOLOGIST SURGICAL SCRUB TECHNOLOGIST Unavailable Unavailable Nalla, Jcakie Unavailable Nalla, Jackie Unavailable Nalla, Jackie Unavailable Jonah, A Nikki SURGICAL SCRUB TECHNOLOGIST Unavailable Unavailable Jonah, A Nikki SURGICAL SCRUB TECHNOLOGIST Unavailable Unavailable Jonah, A Nikki SURGICAL SCRUB TECHNOLOGIST Unavailable Unavailable Jonah, A Nikki SURGICAL SCRUB TECHNOLOGIST Unavailable Unavailable Jonah, A Nikki SURGICAL SCRUB TECHNOLOGIST Unavailable Unavailable Jonah, A Nikki SURGICAL SCRUB TECHNOLOGIST Unavailable Unavailable Jonah, A Nikki SURGICAL SCRUB TECHNOLOGIST Unavailable Unavailable Jonah, A Nikki SURGICAL SCRUB TECHNOLOGIST Unavailable Unavailable Freeman, A Nikki SURGICAL SCRUB TECHNOLOGIST Unavailable Unavailable Freeman, A Nikki SURGICAL SCRUB TECHNOLOGIST Unavailable Unavailable Freeman, A Nikki SURGICAL SCRUB TECHNOLOGIST Unavailable Unavailable Freeman, A Nikki SURGICAL SCRUB TECHNOLOGIST Unavailable Unavailable Freeman, A Nikki SURGICAL SCRUB TECHNOLOGIST Unavailable Unavailable Freeman, A Nikki SURGICAL SCRUB TECHNOLOGIST Unavailable Unavailable Freeman, A Nikki SURGICAL SCRUB TECHNOLOGIST Unavailable Unavailable Freeman, A Nikki SURGICAL SCRUB TECHNOLOGIST Unavailable Unavailable Freeman, A Nikki SURGICAL SCRUB TECHNOLOGIST Unavailable Unavailable Freeman, A Nikki SURGICAL SCRUB TECHNOLOGIST Unavailable Unavailable Freeman, A Nikki SURGICAL SCRUB TECHNOLOGIST Unavailable Unavailable Freeman, A Nikki SURGICAL SCRUB TECHNOLOGIST Unavailable Unavailable Freeman, A Nikki SURGICAL SCRUB TECHNOLOGIST Unavailable Unavailable Freeman, A Nikki SURGICAL SCRUB TECHNOLOGIST Unavailable Unavailable Freeman, A Nikki SURGICAL SCRUB TECHNOLOGIST Unavailable Unavailable Freeman, A Nikki SURGICAL SCRUB TECHNOLOGIST Unavailable Unavailable Freeman, A Nikki SURGICAL SCRUB TECHNOLOGIST Unavailable Unavailable Freeman, A Nikki SURGICAL SCRUB TECHNOLOGIST Unavailable Unavailable Freeman, A Nikki SURGICAL SCRUB TECHNOLOGIST Unavailable Unavailable Freeman, A Nikki SURGICAL SCRUB TECHNOLOGIST Unavailable Unavailable Freeman, A Nikki SURGICAL SCRUB TECHNOLOGIST Unavailable Unavailable Freeman, A Nikki SURGICAL SCRUB TECHNOLOGIST Unavailable Unavailable Freeman, A Nikki SURGICAL SCRUB TECHNOLOGIST Unavailable Unavailable NALLA, JACKIE Unavailable Unavailable ANNIE, [...] Unavailable RING, K KIM PA Unavailable Unavailable Re-disclosure Warning The records that [...] protected by Article 27-F of the [facility] Public Health law. If you continue you may have access to information: Regarding HIV / AIDS; Provided by facilities licensed or operated by the [facility] Office of Mental Health; or Provided by the [facility] Office for People With Developmental Disabilities. If such information is present, then the following [facility] mandated warning applies: This information has [...] Problem [facility] ([facility], [facility]) Encounters Encounter Providers Location Date Indications Data Source(s ) Outpatient Attender: Jackie Angel: JACKIE ASNDERS 2021 12:00:00 AM [facility] Outpatient Attender: JACKIE Angel: Jackie Sanders 09/15/2021 12:00:00 AM EDT [facility] Cesar Lentz MD: [address] [place] [address], Ph. Attender: Cesar Lentz MD [facility] Medical 07/02/2021 12:00:00 AM EDT [place] ([facility]) Outpatient Attender: GABRIELLA GAMA [id number] 05/28/2021 1 2:00:00 AM EDT Type 1 diabetes mellitus with hypoglycemia without coma [facility] Type 1 diabetes mellitus with hypoglycem ia without coma JACKELYN Galvez: [address] [place] [address], Ph. Attender: Nikki Mckenzie [facility] Medical 05/07/2021 12:00:00 AM EDT [place] ([facility]) JACKELYN Galvez: [address] [place] [address], Ph. Attender: Nikki Mckenzie [facility] Medical 05/07/2021 12:00:00 AM EDT [place] ([facility]) Cesar Lentz MD: [address] [place] [address], Ph. Attender: Cesar Lentz MD [facility] Medical 04/22/2021 12:00:00 AM EDT [place] ([facility]) Cesar Lentz MD: [address] [place] [address], Ph. Attender: Cesar Lentz MD [facility] Medical 04/22/2021 12:00:00 AM EDT [place] ([facility]) Cesar Lentz MD: [address] [place] [address], Ph. Attender: Cesar Lentz MD [facility] Medical 04/22/2021 12:00:00 AM EDT [place] ([facility]) Outpatient Attender: [facility] 03/26/2021 05:15:00 PM EDT [facility] ([facility]) Cesar Lentz MD: [address] [place] [address], Ph. Attender: Cesar Lentz MD [facility] Medical 03/10/2021 12:00:00 AM EDT [place] ([facility]) Cesar Lentz MD: [address] [place] [address], Ph. Attender: Cesar Lentz MD [facility] Medical 03/10/2021 12:00:00 AM EDT [place] ([facility]) Cesar Lentz MD: [address] [place] [address], Ph. Attender: Cesar Lentz MD [facility] Medical 03/10/2021 12:00:00 AM EDT [place] ([facility]) Cesar Lentz MD: [address] [place] [address], Ph. Attender: Cesar Lentz MD [facility] Medical 03/10/2021 12:00:00 AM EDT [place] ([facility]) Outpatient Attender: GABRIELLA GAMA [id number] 02/20/2021 1 2:00:00 AM EDT Type 1 diabetes mellitus with hyperglycemia [facility] Type 1 diabetes mellitus with hyperglyce oneil Cesar Lentz MD: [address] [place] [address], Ph. Attender: Cesar Lentz MD [facility] Medical 02/10/2021 12:00:00 AM EDT [place] ([facility]) Cesar Lentz MD: [address] [place] [address], Ph. Attender: Cesar Lentz MD [facility] Medical 02/10/2021 12:00:00 AM EDT [place] ([facility]) Cesar Lentz MD: [address] [place] [address], Ph. Attender: Cesar Lentz MD [facility] Medical 02/10/2021 12:00:00 AM EDT [place] ([facility]) Cesar Lentz MD: [address] [place] [address], Ph. Attender: Cesar Lentz MD [facility] Medical 02/10/2021 12:00:00 AM EDT [place] ([facility]) Cesar Lentz MD: [address] [place] [address], Ph. Attender: Cesar Lentz MD [facility] Medical 02/10/2021 12:00:00 AM EDT [place] ([facility]) Cesar Lentz MD: [address] [place] [address], Ph. Attender: Cesar Lentz MD [facility] Medical 12/25/2020 12:00:00 AM EST [place] ([facility]) Cesar Lentz MD: [address] [place] [address], Ph. Attender: Cesar Lentz MD [facility] Medical 12/25/2020 12:00:00 AM EST [place] ([facility]) Cesar Lentz MD: [address] [place] [address], Ph. Attender: Cesar Lentz MD [facility] Medical 12/25/2020 12:00:00 AM EST [place] ([facility]) Cesar Lentz MD: [address] [place] [address], Ph. Attender: Cesar Lentz MD [facility] Medical 12/25/2020 12:00:00 AM EST [place] ([facility]) Cesar Lentz MD: [address] [place] [address], Ph. Attender: Cesar Lentz MD [facility] Medical 12/25/2020 12:00:00 AM EST [place] ([facility]) Cesar Lentz MD: [address] [place] [address], Ph. Attender: Cesar Lentz MD [facility] Medical 12/25/2020 12:00:00 AM EST [place] ([facility]) Outpatient Attender: Bashir GAMA 12/24/19 10:49:12 AM [facility] 12/24/2020 11:00:40 AM EST [facility] ([facility] ) Outpatient Attender: JACKIE SANDERS 11/19/2020 12:00:00 AM [facility] Cesar Lentz MD: [address] [place] [address], Ph. Attender: Cesar Lentz MD [facility] Medical 09/25/2020 12:00:00 AM EST [place] ([facility]) Cesar Lentz MD: [address] [place] [address], Ph. Attender: Cesar Lentz MD [facility] Medical 09/25/2020 12:00:00 AM EST [place] ([facility]) Cesar Lentz MD: [address] [place] [address], Ph. Attender: Cesar Lentz MD [facility] Medical 09/25/2020 12:00:00 AM EST [place] ([facility]) Cesar Lentz MD: [address] [place] [address], Ph. Attender: Cesar Lentz MD [facility] Medical 09/25/2020 12:00:00 AM EST [place] ([facility]) Cesar Lentz MD: [address] [place] [address], Ph. Attender: Cesar Lentz MD [facility] Medical 09/25/2020 12:00:00 AM EST [place] ([facility]) Cesar Lentz MD: [address] [place] [address], Ph. Attender: Cesar Lentz MD [facility] Medical 09/25/2020 12:00:00 AM EST [place] ([facility]) Cesar Lentz MD: [address] [place] [address], Ph. Attender: Cesar Lentz MD [facility] Medical 09/25/2020 12:00:00 AM EST [place] ([facility]) Outpatient Attender: MICHAEL JACQUES 09/02/2020 05:15:00 P M EDT [facility] Outpatient Attender: GABRIELLA GAMA [id number] 08/19/2020 1 2:00:00 AM EDT Type 1 diabetes mellitus with hyperglycemia [facility] Type 1 diabetes mellitus with hyperglyce oneil Immunizations Vaccine Date Status Description Data Source(s) COVID-19, mRNA, LNP-S, PF, 100 mcg/0.5 mL dose 03/10/2021 10 :46:37 AM EDT completed .5 mL [place] ([facility]) COVID-19, mRNA, LNP-S, PF, 100 mcg/0.5 mL dose 03/10/2021 10 :46:37 AM EDT completed .5 mL [place] ([facility]) COVID-19, mRNA, LNP-S, PF, 100 mcg/0.5 mL dose 03/10/2021 10 :46:37 AM EDT completed .5 mL [place] ([facility]) COVID-19, mRNA, LNP-S, PF, 100 mcg/0.5 mL dose 03/10/2021 10 :46:37 AM EDT completed .5 mL [place] ([facility]) COVID-19 VACCINE Moderna 03/10/2021 12:00:00 AM EDT completed [facility] Vaccine Series Complete: YESThis Data wa s Submitted to [facility] Via [employer]. COVID-19, mRNA, LNP-S, PF, 100 mcg/0.5 mL dose 02/10/2021 09 :12:40 PM EDT completed .5 mL [place] ([facility]) COVID-19, mRNA, LNP-S, PF, 100 mcg/0.5 mL dose 02/10/2021 09 :12:40 PM EDT completed .5 mL [place] ([facility]) COVID-19, mRNA, LNP-S, PF, 100 mcg/0.5 mL dose 02/10/2021 09 :12:40 PM EDT completed .5 mL [place] ([facility]) COVID-19, mRNA, LNP-S, PF, 100 mcg/0.5 mL dose 02/10/2021 09 :12:40 PM EDT completed 10.5 mL [place] ([facility]) COVID-19, mRNA, LNP-S, PF, 100 mcg/0.5 mL dose 02/10/2021 09 :12:40 PM EDT completed .5 mL [place] ([facility]) COVID-19 VACCINE Moderna 02/10/2021 12:00:00 AM EDT completed [facility] Vaccine Series Complete: NOThis Data was Submitted to [facility] Via [employer]Box™. New in 2011. IIV4 09/25/2020 02:34:00 PM EST completed .5 mL [place] ([facility]) New in 2011. IIV4 09/25/2020 02:34:00 PM EST completed 0.5 mL [place] ([facility]) New in 2011. IIV4 09/25/2020 02:34:00 PM EST completed 0.5 mL [place] ([facility]) New in 2011. IIV4 09/25/2020 02:34:00 PM EST completed 0.5 mL [place] ([facility]) New in 2011. IIV4 09/25/2020 02:34:00 PM EST completed 0.5 mL [place] ([facility]) New in 2011. IIV4 09/25/2020 02:34:00 PM EST completed 0.5 mL [place] ([facility]) New in 2011. IIV4 09/25/2020 02:34:00 PM EST completed .5 mL [place] ([facility]) Medications Medication Brand Name Start Date Product Form Dose Route Admi nistrative Instructions Pharmacy Instructions Status Indications Reaction Description Data Source(s) Baqsimi One Pack 3 MG/DOSE Nasal Powder (Glucagon) 3903-2464 -11 05/28/2021 12:00:00 AM EDT active [place] 3mg in one nostril to treat severe hypoglycemia. Dx E10.65 . [facility] Tresiba FlexTouch 100 UNIT/ML Subcutaneo us Solution Pen-injector (insulin degludec) 6861-8151-48 05/28/2021 12:00:00 AM EDT active Type 1 diabetes mellitus with hyperglycemia Inject 21 units i n the morning and 20 units in the evening as directed. MDD 63 units with priming and titration [facility] Type 1 diabetes mellitus with hyperglyce oneil OneTouch Ultra In Vitro Strip 78010-874-40 05/28/2021 12:00:00 AM EDT active Type 1 diabetes mellitus with hyperglycemia Use as instructed 6 times daily to check sugars. Dx: E10.65 [facility] Type 1 diabetes mellitus with hyperglyce oneil Insulin Pen Needle 31G X 6 MM [address] 02/20/2021 12:00:00 AM EDT active Use as directed. With Tresiba and Novolo g pens up to 6 times daily. E 10.65 [facility] Insulin, Aspart, Human 100 UNT/ML Inject able Solution Insulin Aspart 100 UNIT/ML Subcutaneous Solution (NOVOLOG) Insulin Aspart 100 UNIT/ML Subcutaneous Solution (NOVOLOG) 02/05/2021 12:00:00 AM EDT act [place] Type 1 diabetes mellitus with hyperglycemia Inject as per sliding scale. MDD- 95 units with titration. Dx: E10.65 [facility] Type 1 diabetes mellitus with hyperglyce oneil OneTouch Ultra In Vitro Strip 87670-433-39 11/03/2020 12:00:00 AM EST aborted Type 1 diabetes mellitus with hyperglycemia USE TO CHECK BLOOD GLUCOSE 6 TIMES DAILY [facility] Type 1 diabetes mellitus with hyperglyce oneil Insulin Syringe 31G X 5/16" 1 ML [address] 09/19/2020 12:00:00 AM EST active Type 1 diabetes mellitus with hyperglycemia Use as directed. USE DIRECTED WITH INSULIN INJECTIONS UP TO 6 TIMES DAILY [facility] Type 1 diabetes mellitus with hyperglyce oneil Dexcom G6 Sensor [id number] 07/02/2020 12:00:00 AM EDT 1 {each} Does not apply aborted Type 1 diabetes mellitus with hyperg lycemia 1 each by Does not apply route every 7 (seven) days [facility] Type 1 diabetes mellitus with hyperglyce oneil Dexcom G6 Drill Presser Device [id number] 07/02/2020 12:00:00 AM EDT aborted Type 1 diabetes mellitus with hyperglycemia GABRIELA Y DIRECTED [facility] Type 1 diabetes mellitus with hyperglyce oneil Tegaderm Film 4"x4-3/4" 7181-4973-63 07/02/2020 12:00:00 AM EDT aborted Type 1 diabetes mellitus with hyperglycemia GABRIELA Y DIRECTED [facility] Type 1 diabetes mellitus with hyperglyce oneil Dexcom G6 Transmitter [id number] 07/02/2020 12:00:00 AM EDT aborted Type 1 diabetes mellitus with hyperglycemia DAILY DIRECTE D [facility] Type 1 diabetes mellitus with hyperglyce oneil Adhesive Remover Wipes XL [id number] 07/02/2020 12:00:00 AM EDT 1 {each} Topical aborted Type 1 diabetes mellitus with hyperg lycemia Apply 1 each topically once a week [facility] Type 1 diabetes mellitus with hyperglyce oneil Insulin Degludec 100 UNIT/ML Subcutaneou s Solution Pen-injector (Tresiba FlexTouch) [id number] 04/01/2020 12:00:00 AM EDT aborted Type 1 diabetes mellitus with hyperglycemia Inject 17 units in the mor doreen and 17 units in the evening as directed. MDD 58 units with priming and titration [facility] Type 1 diabetes mellitus with hyperglyce oneil Ergocalciferol 19460 UNT Oral Capsule Er gocalciferol 1.25 MG (60024 UT) Oral Capsule (ERGOCALCIFEROL) Ergocalciferol 1.25 MG (71201 UT) Oral C apsule (ERGOCALCIFEROL) 11/23/2019 12:00:00 AM EST 04923 U Oral active Take 1 capsule by mouth once a week For 8 weeks only. [facility] Glucagon 3 MG/DOSE Nasal Powder (BAQSIMI ONE PACK) [id number] 10/29/2019 12:00:00 AM EST aborted [place] 3m g in one nostril to treat severe hypoglycemia. Dx E10.65 . [facility] Glucagon 1 MG Injection glucagon (GLUCAGON EMERGENCY) 1 MG injection glucagon (GLUCAGON EMERGENCY) 1 MG injection 10/11/2018 12:00:00 AM EST aborted Type 1 diabetes mellitus with hyperglycemia Inject 1 mg SC/IM for severe hypoglycemic event. [facility] Type 1 diabetes mellitus with hyperglyce oniel Dexamethasone 1 MG/ML Ophthalmic Solutio n dexamethasone sodium phosphate 0.1 % eye drops INSTILL 2 DROPS THROUGH TRACHE SITE THREE TIMES DAILY FOR 5 DAYS INSTRUCTED dexamethasone sodium phosphate 0.1 % eye drops INSTILL 2 DROPS THROUGH TRACHE SITE THREE TIMES DAILY FOR 5 DAYS INSTRUCTED completed dexamethasone phosphate 1 MG/ML Ophthalmic Solution [place] ([facility]) Ciprofloxacin 3 MG/ML Ophthalmic Solutio n ciprofloxacin 0.3 % eye drops INSTILL 2 DROPS THROUGH TRACHE SITE THREE TIMES DAILY FOR 5 DAYS INSTRUCTED ciprofloxacin 0.3 % eye drops INSTILL 2 DROPS THROUGH TRACHE SITE THREE TIMES DAILY FOR 5 DAYS INSTRUCTED complet ed ciprofloxacin 3 MG/ML Ophthalmic Solution [place] ([facility]) Cholecalciferol 2000 UNT Oral Tablet cho lecalciferol (vitamin D3) 50 mcg (2,000 unit) tablet TK ONE T PO D cholecalciferol (vitamin D3) 50 mcg (2,0 00 unit) tablet TK ONE T PO D completed cholecalciferol 0.05 MG Oral Tablet [place] ([facility]) Prednisone 20 MG Oral Tablet prednisone 20 mg tablet T K 2 TS PO D FOR 4 DAYS prednisone 20 mg tablet TK 2 TS PO D FOR 4 DAYS completed prednisone 20 MG Oral Tablet [place] ([facility]) Cholecalciferol 2000 UNT Oral Tablet cho lecalciferol (vitamin D3) 50 mcg (2,000 unit) tablet TK ONE T PO D cholecalciferol (vitamin D3) 50 mcg (2,0 00 unit) tablet TK ONE T PO D completed cholecalciferol 0.05 MG Oral Tablet [place] ([facility]) Lisinopril 5 MG Oral Tablet lisinopril 5 mg tablet TK 1 T PO QD lisinopril 5 mg tablet TK 1 T PO QD completed li sinopril 5 MG Oral Tablet [place] ([facility]) Ibuprofen 600 MG Oral Tablet ibuprofen 600 mg tablet ibuprofen 6 00 mg tablet completed ibuprofen 600 MG Oral Tablet [place] ([facility]) Lisinopril 5 MG Oral Tablet lisinopril 5 mg tablet TK 1 T PO QD lisinopril 5 mg tablet TK 1 T PO QD completed li sinopril 5 MG Oral Tablet [place] ([facility]) Insulin, Aspart, Human 100 UNT/ML Inject able Solution [NovoLog] Novolog U-100 Insulin aspart 100 unit/mL subcutaneous solution INJECT PER SLIDING SCALE MDD 95 UNITS WITH TITRATION Novolog U-100 Insulin aspart 100 unit/mL subcutaneous solution INJECT PER SLIDING SCALE MDD 95 UNITS WITH TITRATION completed insulin aspart, human 100 UNT/ML Injectable Solution [NovoLog] [place] ([facility]) Cholecalciferol 2000 UNT Oral Tablet cho lecalciferol (vitamin D3) 50 mcg (2,000 unit) tablet TK ONE T PO D cholecalciferol (vitamin D3) 50 mcg (2,0 00 unit) tablet TK ONE T PO D completed cholecalciferol 0.05 MG Oral Tablet [place] ([facility]) Lisinopril 5 MG Oral Tablet lisinopril 5 mg tablet TK 1 T PO QD lisinopril 5 mg tablet TK 1 T PO QD completed li sinopril 5 MG Oral Tablet [place] ([facility]) Cholecalciferol 5000 UNT Oral Capsule Vitamin D3 125 M CG (5000 UT) Oral Capsule Vitamin D3 125 MCG (5000 UT) Oral Capsule 5000 U Oral aborted Take 5,000 Units by mouth Once Daily [facility] Lisinopril 5 MG Oral Tablet lisinopril 5 mg tablet TK 1 T PO QD lisinopril 5 mg tablet TK 1 T PO QD completed li sinopril 5 MG Oral Tablet [place] ([facility]) Phosphorous Supplement 280 mg-160 mg-250 mg oral powder packet MIX 1 PACKET AND DRINK THREE TIMES DAILY [id number] completed Phosphorous Supplement 280 mg-160 mg-250 mg oral powder packet [place] ([facility]) Baqsimi 3 mg/actuation nasal spray SPRAY 3MG IN ONE NOSTRIL TO TREAT SEVERE HYPOGLYCEMIA 767941 completed gl ucagon 3 MG Nasal Powder [Baqsimi] [facility]) OneTouch Ultra Blue Test Strip USE TO CHECK BLOOD GLUCOSE 6 TIMES D 431059 completed OneTouch Ultra Blue Te st Strip [place] ([facility]) Cholecalciferol 92617 UNT Oral Capsule c holecalciferol (vitamin D3) 1,250 mcg (50,000 unit) capsule TK 1 C PO ONCE PER WEEK cholecalciferol (vitamin D3) 1,250 mcg (50,000 unit) capsule TK 1 C PO ONCE PER WEEK completed cholecalciferol 1.25 MG Oral Capsule [place] ([facility]) Baqsimi 3 mg/actuation nasal spray SPRAY 3MG IN ONE NOSTRIL TO TREAT SEVERE HYPOGLYCEMIA 708131 completed gl ucagon 3 MG Nasal Powder [Baqsimi] [place] ([facility]) Prednisone 20 MG Oral Tablet prednisone 20 mg tablet T K 2 TS PO D FOR 4 DAYS prednisone 20 mg tablet TK 2 TS PO D FOR 4 DAYS completed prednisone 20 MG Oral Tablet [place] ([facility]) Prednisone 20 MG Oral Tablet prednisone 20 mg tablet T K 2 TS PO D FOR 4 DAYS prednisone 20 mg tablet TK 2 TS PO D FOR 4 DAYS completed prednisone 20 MG Oral Tablet [place] ([facility]) atorvastatin 40 MG Oral Tablet atorvastatin 40 mg tabl et atorvastatin 40 mg tablet completed atorvastatin 40 MG Oral Tablet [place] ([facility]) Ergocalciferol 52735 UNT Oral Capsule er gocalciferol (vitamin D2) 1,250 mcg (50,000 unit) capsule TK 1 C PO 1 TIME A WK FOR 8 WKS ONLY ergocalciferol (vitamin D2) 1,250 mcg (50,000 unit) capsule TK 1 C PO 1 TIME A WK FOR 8 WKS ONLY completed ergocalciferol 1 .25 MG Oral Capsule [place] ([facility]) Phosphorous Supplement 280 mg-160 mg-250 mg oral powder packet MIX 1 PACKET AND DRINK THREE TIMES DAILY 803190 completed Phosphorous Supplement 280 mg-160 mg-250 mg oral powder packet [place] ([facility]) atorvastatin 20 MG Oral Tablet atorvastatin 20 mg tabl et atorvastatin 20 mg tablet completed atorvastatin 20 MG Oral Tablet [place] ([facility]) Cholecalciferol 90296 UNT Oral Capsule c holecalciferol (vitamin D3) 1,250 mcg (50,000 unit) capsule TK 1 C PO ONCE PER WEEK cholecalciferol (vitamin D3) 1,250 mcg (50,000 unit) capsule TK 1 C PO ONCE PER WEEK completed cholecalciferol 1.25 MG Oral Capsule [place] ([facility]) Phosphorous Supplement 280 mg-160 mg-250 mg oral powder packet MIX 1 PACKET AND DRINK THREE TIMES DAILY 115641 completed Phosphorous Supplement 280 mg-160 mg-250 mg oral powder packet [place] ([facility]) Baqsimi 3 mg/actuation nasal spray SPRAY 3MG IN ONE NOSTRIL TO TREAT SEVERE HYPOGLYCEMIA 786614 completed gl ucagon 3 MG Nasal Powder [Baqsimi] [place] ([facility]) Phosphorous Supplement 280 mg-160 mg-250 mg oral powder packet MIX 1 PACKET AND DRINK THREE TIMES DAILY [id number] completed Phosphorous Supplement 280 mg-160 mg-250 mg oral powder packet [facility] ([facility]) Ergocalciferol 54818 UNT Oral Capsule er gocalciferol (vitamin D2) 1,250 mcg (50,000 unit) capsule TK 1 C PO 1 TIME A WK FOR 8 WKS ONLY ergocalciferol (vitamin D2) 1,250 mcg (50,000 unit) capsule TK 1 C PO 1 TIME A WK FOR 8 WKS ONLY completed ergocalciferol 1 .25 MG Oral Capsule [facility] ([facility]) Ciprofloxacin 3 MG/ML Ophthalmic Solutio n ciprofloxacin 0.3 % eye drops INSTILL 2 DROPS THROUGH TRACHE SITE THREE TIMES DAILY FOR 5 DAYS INSTRUCTED ciprofloxacin 0.3 % eye drops INSTILL 2 DROPS THROUGH TRACHE SITE THREE TIMES DAILY FOR 5 DAYS INSTRUCTED complet ed ciprofloxacin 3 MG/ML Ophthalmic Solution [facility] ([facility]) Ergocalciferol 38401 UNT Oral Capsule er gocalciferol (vitamin D2) 1,250 mcg (50,000 unit) capsule TK 1 C PO 1 TIME A WK FOR 8 WKS ONLY ergocalciferol (vitamin D2) 1,250 mcg (50,000 unit) capsule TK 1 C PO 1 TIME A WK FOR 8 WKS ONLY completed ergocalciferol 1 .25 MG Oral Capsule [facility] ([facility]) Ciprofloxacin 3 MG/ML Ophthalmic Solutio n ciprofloxacin 0.3 % eye drops INSTILL 2 DROPS THROUGH TRACHE SITE THREE TIMES DAILY FOR 5 DAYS INSTRUCTED ciprofloxacin 0.3 % eye drops INSTILL 2 DROPS THROUGH TRACHE SITE THREE TIMES DAILY FOR 5 DAYS INSTRUCTED complet ed ciprofloxacin 3 MG/ML Ophthalmic Solution [facility] ([facility]) Dexamethasone 1 MG/ML Ophthalmic Solutio n dexamethasone sodium phosphate 0.1 % eye drops INSTILL 2 DROPS THROUGH TRACHE SITE THREE TIMES DAILY FOR 5 DAYS INSTRUCTED dexamethasone sodium phosphate 0.1 % eye drops INSTILL 2 DROPS THROUGH TRACHE SITE THREE TIMES DAILY FOR 5 DAYS INSTRUCTED completed dexamethasone phosphate 1 MG/ML Ophthalmic Solution [facility] ([facility]) Prednisone 20 MG Oral Tablet prednisone 20 mg tablet T K 2 TS PO D FOR 4 DAYS prednisone 20 mg tablet TK 2 TS PO D FOR 4 DAYS completed prednisone 20 MG Oral Tablet [facility] ([facility]) Cholecalciferol 2000 UNT Oral Tablet cho lecalciferol (vitamin D3) 50 mcg (2,000 unit) tablet TK ONE T PO D cholecalciferol (vitamin D3) 50 mcg (2,0 00 unit) tablet TK ONE T PO D completed cholecalciferol 0.05 MG Oral Tablet [facility] ([facility]) Dexamethasone 1 MG/ML Ophthalmic Solutio n dexamethasone sodium phosphate 0.1 % eye drops INSTILL 2 DROPS THROUGH TRACHE SITE THREE TIMES DAILY FOR 5 DAYS INSTRUCTED dexamethasone sodium phosphate 0.1 % eye drops INSTILL 2 DROPS THROUGH TRACHE SITE THREE TIMES DAILY FOR 5 DAYS INSTRUCTED completed dexamethasone phosphate 1 MG/ML Ophthalmic Solution [facility] ([facility]) Baqsimi 3 mg/actuation nasal spray SPRAY 3MG IN ONE NOSTRIL TO TREAT SEVERE HYPOGLYCEMIA [id number] completed gl ucagon 3 MG Nasal Powder [Baqsimi] [facility] ([facility]) atorvastatin 20 MG Oral Tablet atorvastatin 20 mg tabl et atorvastatin 20 mg tablet completed atorvastatin 20 MG Oral Tablet [facility] ([facility]) Insulin, Aspart, Human 100 UNT/ML Inject able Solution [NovoLog] Novolog U-100 Insulin aspart 100 unit/mL subcutaneous solution INJECT PER SLIDING SCALE MDD 95 UNITS WITH TITRATION Novolog U-100 Insulin aspart 100 unit/mL subcutaneous solution INJECT PER SLIDING SCALE MDD 95 UNITS WITH TITRATION completed insulin aspart, human 100 UNT/ML Injectable Solution [NovoLog] [place] ([facility]) Cholecalciferol 2000 UNT Oral Tablet cho lecalciferol (vitamin D3) 50 mcg (2,000 unit) tablet TK ONE T PO D cholecalciferol (vitamin D3) 50 mcg (2,0 00 unit) tablet TK ONE T PO D completed cholecalciferol 0.05 MG Oral Tablet [facility] ([facility]) Insulin, Aspart, Human 100 UNT/ML Inject able Solution [NovoLog] Novolog U-100 Insulin aspart 100 unit/mL subcutaneous solution INJECT PER SLIDING SCALE MDD 95 UNITS WITH TITRATION Novolog U-100 Insulin aspart 100 unit/mL subcutaneous solution INJECT PER SLIDING SCALE MDD 95 UNITS WITH TITRATION completed insulin aspart, human 100 UNT/ML Injectable Solution [NovoLog] [place] ([facility]) Ergocalciferol 22839 UNT Oral Capsule er gocalciferol (vitamin D2) 1,250 mcg (50,000 unit) capsule TK 1 C PO 1 TIME A WK FOR 8 WKS ONLY ergocalciferol (vitamin D2) 1,250 mcg (50,000 unit) capsule TK 1 C PO 1 TIME A WK FOR 8 WKS ONLY completed ergocalciferol 1 .25 MG Oral Capsule [place] ([facility]) insulin syringe U-100 with needle 1 mL 31 gauge x 5/16" [id number] completed insulin syringe U-100 with needl e 1 mL 31 gauge x 5/16" [facility] ([facility]) atorvastatin 20 MG Oral Tablet atorvastatin 20 mg tabl et atorvastatin 20 mg tablet completed atorvastatin 20 MG Oral Tablet [facility] ([facility]) Lisinopril 5 MG Oral Tablet lisinopril 5 mg tablet TK 1 T PO QD lisinopril 5 mg tablet TK 1 T PO QD completed li sinopril 5 MG Oral Tablet [place] ([facility]) Lisinopril 10 MG Oral Tablet lisinopril 10 mg tablet T K 1 T PO D lisinopril 10 mg tablet TK 1 T PO D completed lisinopril 10 MG Oral Tablet [facility] ([facility]) Ibuprofen 600 MG Oral Tablet ibuprofen 600 mg tablet ibuprofen 6 00 mg tablet completed ibuprofen 600 MG Oral Tablet [facility] ([facility]) OneTouch Ultra Test strips USE INSTRUCTED 6 TIMES D AILY TO CHECK SUGARS [id number] completed OneTouch Ultra Test strips [place] ([facility]) Phosphorous Supplement 280 mg-160 mg-250 mg oral powder packet MIX 1 PACKET AND DRINK THREE TIMES DAILY 387216 completed Phosphorous Supplement 280 mg-160 mg-250 mg oral powder packet [facility] ([facility]) Unifine Pentips 31 gauge x 1/4" needle U SE DIRECTED WITH TRESIBA AND NOVOLOG PENS UP TO 6 TIMES DAILY [id number] completed Unifine Pentips 31 gauge x 1/4" needle [facility] ([facility]) atorvastatin 40 MG Oral Tablet atorvastatin 40 mg tabl et atorvastatin 40 mg tablet completed atorvastatin 40 MG Oral Tablet [place] ([facility]) Phosphorous Supplement 280 mg-160 mg-250 mg oral powder packet MIX 1 PACKET AND DRINK THREE TIMES DAILY [id number] completed Phosphorous Supplement 280 mg-160 mg-250 mg oral powder packet [facility] ([facility]) Prednisone 20 MG Oral Tablet prednisone 20 mg tablet T K 2 TS PO D FOR 4 DAYS prednisone 20 mg tablet TK 2 TS PO D FOR 4 DAYS completed prednisone 20 MG Oral Tablet [facility] ([facility]) Ergocalciferol 60368 UNT Oral Capsule er gocalciferol (vitamin D2) 1,250 mcg (50,000 unit) capsule TK 1 C PO 1 TIME A WK FOR 8 WKS ONLY ergocalciferol (vitamin D2) 1,250 mcg (50,000 unit) capsule TK 1 C PO 1 TIME A WK FOR 8 WKS ONLY completed ergocalciferol 1 .25 MG Oral Capsule [facility] ([facility]) Cholecalciferol 46425 UNT Oral Capsule c holecalciferol (vitamin D3) 1,250 mcg (50,000 unit) capsule TK 1 C PO ONCE PER WEEK cholecalciferol (vitamin D3) 1,250 mcg (50,000 unit) capsule TK 1 C PO ONCE PER WEEK completed cholecalciferol 1.25 MG Oral Capsule [facility] ([facility]) atorvastatin 20 MG Oral Tablet atorvastatin 20 mg tabl et atorvastatin 20 mg tablet completed atorvastatin 20 MG Oral Tablet [facility] ([facility]) Lisinopril 10 MG Oral Tablet lisinopril 10 mg tablet T K 1 T PO D lisinopril 10 mg tablet TK 1 T PO D completed lisinopril 10 MG Oral Tablet [facility] ([facility]) Ibuprofen 600 MG Oral Tablet ibuprofen 600 mg tablet ibuprofen 6 00 mg tablet completed ibuprofen 600 MG Oral Tablet [facility] ([facility]) atorvastatin 20 MG Oral Tablet atorvastatin 20 mg tabl et atorvastatin 20 mg tablet completed atorvastatin 20 MG Oral Tablet [facility] ([facility]) Prednisone 20 MG Oral Tablet prednisone 20 mg tablet T K 2 TS PO D FOR 4 DAYS prednisone 20 mg tablet TK 2 TS PO D FOR 4 DAYS completed prednisone 20 MG Oral Tablet [facility] ([facility]) Lisinopril 10 MG Oral Tablet lisinopril 10 mg tablet T K 1 T PO D lisinopril 10 mg tablet TK 1 T PO D completed lisinopril 10 MG Oral Tablet [facility] ([facility]) Cholecalciferol 2000 UNT Oral Tablet cho lecalciferol (vitamin D3) 50 mcg (2,000 unit) tablet TK ONE T PO D cholecalciferol (vitamin D3) 50 mcg (2,0 00 unit) tablet TK ONE T PO D completed cholecalciferol 0.05 MG Oral Tablet [facility] ([facility]) atorvastatin 40 MG Oral Tablet atorvastatin 40 mg tabl et atorvastatin 40 mg tablet completed atorvastatin 40 MG Oral Tablet [facility] ([facility]) atorvastatin 20 MG Oral Tablet atorvastatin 20 mg tabl et atorvastatin 20 mg tablet completed atorvastatin 20 MG Oral Tablet [facility] ([facility]) Baqsimi 3 mg/actuation nasal spray SPRAY 3MG IN ONE NOSTRIL TO TREAT SEVERE HYPOGLYCEMIA 896267 completed gl ucagon 3 MG Nasal Powder [Baqsimi] [facility] ([facility]) Ergocalciferol 74553 UNT Oral Capsule er gocalciferol (vitamin D2) 1,250 mcg (50,000 unit) capsule TK 1 C PO 1 TIME A WK FOR 8 WKS ONLY ergocalciferol (vitamin D2) 1,250 mcg (50,000 unit) capsule TK 1 C PO 1 TIME A WK FOR 8 WKS ONLY completed ergocalciferol 1 .25 MG Oral Capsule [facility] ([facility]) Baqsimi 3 mg/actuation nasal spray SPRAY 3MG IN ONE NOSTRIL TO TREAT SEVERE HYPOGLYCEMIA 961421 completed gl ucagon 3 MG Nasal Powder [Baqsimi] [place] ([facility]) Lisinopril 5 MG Oral Tablet lisinopril 5 mg tablet TK 1 T PO QD lisinopril 5 mg tablet TK 1 T PO QD completed li sinopril 5 MG Oral Tablet [place] ([facility]) Insurance Providers Payer name Policy type / Coverage type Policy ID Covered alliance party ID Covered alliance 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 Policy Laird Plan Information [employer] PLUS [id number] SP [id number] [employer] PLUS [id number] SP [id number] 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 [id number] Self [id number] RPR- FFS Self Pay [id number] Self [id number] BCBS [place] PPO 302/307 [id number] SP [id number] BCBS [employer] [id number] SP [id number] SELF PAY ONLY [id number] SP [id number] SELF PAY ONLY [id number] SP [id number] SELF PAY ONLY - SP1 SP BCBS [place] 121/621 [id number] SP [id number] BCBS/Blue Card Commercial [id number] Self [id number] BCBS/Blue Card Commercial [id number] Self [id number] EXCELLUS BCBS B [id number] S MCQ [id number] Excellus [employer] [id number] Self [id number] Excellus Blue [employer] Commercial [id number] Self [id number] BCBS [place] 121/621 [id number] SP [id number] Excellus [employer] [id number] Self Excellus BCBS Health Maintenance Organization (HMO) [id number] Self BS [place] Commercial [id number] Self BCBS [place] 121/621 [id number] SP [id number] BCBS [place] PPO 302/307 [id number] SP [id number] SELF PAY UNAVAILABLE SP UNAVAILA BLE BCBS OF [place] 370/[id number] UNAVAILABLE SP UNAVAILABLE [employer] [place] [id number] SP [id number] MEDICAID [id number] SP [id number] HMO BLUE [id number] SP [id number] HMO BLUE [id number] SP [id number] O BLUE [id number] SP [id number] COMPSY [id number] SP [id number] [place] [id number] SP [id number] CHNIO [id number] SP [id number] [facility]INO [facility] O [id number] S [id number] ANSI-Not a Secondary Insurance [id number] [facility] [id number] SP [id number] BCBS [place] 121/621 [id number] SP [id number] [facility] [id number] SP [id number] BCBS [place] 121/621 [id number] SP [id number] BCBS/Blue Card Commercial [id number] Self [id number] ANSI-Commercial [id number] BCBS/Blue Card Commercial [id number] Self [id number] BCBS/Blue Card Commercial [id number] Self [id number] BCBS/Blue Card Commercial [id number] 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 12:00:00 AM EST [facility] ([facility]) 23249668 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 12:00:00 AM EST [facility] ([facility]) 48678739 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 12:00:00 AM EST [facility] ([facility]) 36741997 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 12:00:00 AM EST [facility] ([facility]) 22822980 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 12:00:00 AM EST [facility] ([facility]) 65780357 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 12:00:00 AM EST [facility] ([facility]) 08634130 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 12:00:00 AM EST [facility] ([facility]) Surgeries/Procedures No Information Results ID Date Data Source [id number] 05/28/2021 09:11:04 AM EDT [facility] Name Value Range Interpretation Code Description Data Claribel rce(s) Supporting Document(s) Progress Note [facility] [id number]/CMCjjGRGuo1QpDCvjEJb1GQgxNCIqG4FdNLK2bR2nOPI7GZmGKoQiXdTwBeV2 lbm [file] AgICAgICAgICAgICAgICAgICAgICAgICAgICAgICAgICAgICAgICAgICAgICAgICAgICAgICAgICAgIC AgICAgICAgICAgICAgICAgICAgICAgICAgICAgDQogICAgICAgICAgICAgICAgICAgICAgICAgICAgIC AgICAgICAgICAgICAgICAgICAgICAgICAgICAgICAg ICAgICAgICAgICAgICAgICAgICAgICAgICAgICAgICAgICAgICAgDQogICAgICAgICAgICAgICAgICAg ICAgICAgICAgICAgICAgICAgICAgICAgICAgICAgICAgICAgICAgICAgICAgICAgICAgICAgICAgICAg ICAgICAgICAgICAgICAgICAgICAgDQogICAgICAgIC AgICAgICAgICAgICAgICAgICAgICAgICAgICAgICAgICAgICAgICAgICAgICAgICAgICAgICAgICAgIC AgICAgICAgICAgICAgICAgICAgICAgICAgICAgICAgDQogICAgICAgICAgICAgICAgICAgICAgICAgIC AgICAgICAgICAgICAgICAgICAgICAgICAgICAgICAg ICAgICAgICAgICAgICAgICAgICAgICAgICAgICAgICAgICAgICAgICAgDQogICAgICAgICAgICAgICAg ICAgICAgICAgICAgICAgICAgICAgICAgICAgICAgICAgICAgICAgICAgICAgICAgICAgICAgICAgICAg ICAgICAgICAgICAgICAgICAgICAgICAgDQogICAgIC AgICAgICAgICAgICAgICAgICAgICAgICAgICAgICAgICAgICAgICAgICAgICAgICAgICAgICAgICAgIC AgICAgICAgICAgICAgICAgICAgICAgICAgICAgICAgICAgDQogICAgICAgICAgICAgICAgICAgICAgIC AgICAgICAgICAgICAgICAgICAgICAgICAgICAgICAg ICAgICAgICAgICAgICAgICAgICAgICAgICAgICAgICAgICAgICAgICAgICAgDQogICAgICAgICAgICAg ICAgICAgICAgICAgICAgICAgICAgICAgICAgICAgICAgICAgICAgICAgICAgICAgICAgICAgICAgICAg ICAgICAgICAgICAgICAgICAgICAgICAgICAgDQogIC AgICAgICAgICAgICAgICAgICAgICAgICAgICAgICAgICAgICAgICAgICAgICAgICAgICAgICAgICAgIC DoISLdQKRaTNIlTPYwRHZwRGOuBBMmKJOhXLPzQRMpBNViTTZcPQn1V2vrFENyXMOmEO3vMUg9Uv4+DQ eODqFhFSV8vrUtoB6MSR9vj0AaLOiyDUUah8XfXWb1 RR6CLUEfIOjsNX4FUHopab3YMJFmHPFhfYDYo2jkIyUvXNT4QGUqQwszLM5DKRDlG2rucxUdJNXrTBEJ JGyyBQIWSSuiBNOQCCFfPOFrLqAxXqCmWNXkTGPiCDSNAYB1WVVyLjDsNCbsYC2Xn0PjwQZ3BEa+Pg0K JC2km3AbJWzxBNObDG2qft8ZNDxJRgIaX7CagaO6ZB MrQTNzDj8YUQWpNIZwoNFtLzDaIDSUZjUzY2YwiH79INEQTg4+KZmqlmNlEdoFQkGsCOIqd9GqTAa2HP 5ZPSWbTEu8tLJzCSJqM6Dcl2BkUv99SLOjEbqdFIAnjKUysDZdMrZPDXLnfP1fkC8eCVEVCJEiqQH0Gf L8XnVtRqRnBVz5ZcWnHF2aACenHK2KTHT1HYfoWJXq GBQeW0rEVpNxXKBmHyLhcZarJJ6OThTqZ8RgyxBdoNPcLCOjARZUUo6+UHhnjfEuCsqAMeZwGUAax4Vs XPu1ZU5DXMAtTLfdKL9TTUYxtE3rLPagNM8YDyAtAAQiEURRRvRhF86drBHdDVh1Z7XcUwHuEAQlWsgc ZXMgPDwvTmFtZXMgWyBdDQogID4+ID4+DIbhGL0RYF vrscZrFCFdJd9TNARcTTLmMY2oZUMsBSBsS2R1jZjsQCZSPcUtQ2wpvdwqGO6dXJNaG638yLnncuHaME RbNPYpBr1FVJRvUPI9RZAdlBHbEfSiVJBSLLxxSR3LiEWnKTO7eX7oHBmoIYKuRSJmM1yPHoRzjNhfBE 51bGwgbnVsbCBdDQo+Xk7TTF7yz8YlNYc7feUwRZoh MPO5SXorGQScBREdTJDzCAV1NBR6VOWKFeTqUQQtVTYzVKtjNZAtFWBucy0ZQWLbPGGmWgP5MFOiWCRp WHLlVInaSHWzOLM5YwfrRZTzAPRgGY0LPlYeFRNxJMWnBRorTHMuXHDjdb9PNBRdNKJcFOX4WnYcAQQs NPHzHDmdIIRzXKY9FmYnJDZgFWTtTO1OEtPzOIEiKD gzPzywGFIkPRJvzs3VTZZtSCFkPIFfWzOjLQCpHAGwKPtzADYuNIHnBlB6WMAzZPQuMV9EItWuEHWwZK T5NjFmZCUzNCIggs2KRKSrIRTzXNR0UgLhLUCxADUrXPlmOGYwPAE8KksqAOViBLImPO9RTuHeERTrWR ipRZHpFJJiLOWeez2LFEGnQCJvWoI7ZDUlPKTzBOMg IVtgPIHeNTQkJkGcYVZtOEGgVX4NSeMbIBJsSiJ8GejgXKLhUQSfvb2PDRScTQHwHhY6UPXoEOCrKKCc RZcuZAIbRSZcHQogYRDeBULfMN4LLkIsIZCpHeZ8LOYfVBJoOCTbxx2MITXeEHRcJsb7DrVvALAlUETd WValXZFhZUTzIPOgQZQqLDWtSH4COnIpACTqQwS6BY soEQKcJAChrz6MGNVrMTQwTOS2DZWxHWOgVEAvULxnESCbJHW8Fck6YAEkBJZmTO0BUnLzABUuKmW8FF vfRSNsTLFuja2MCFLnRSBwEtSyNAEyJXSkMORvNIcmCOIoUIH4BsGxOGFzVBHsQA7HKiWwFIKtDlv3TS UmYJPnCACadg4OWIQlUNMqBhSeOWDtZENuYZMsGCnc IKNqYIF9UDPrHORdVOAtCN5MJzGpYKAqTko8TBjxLLMuWMSqnk0GMOFnAPDrOMP2LCFhGINlAKEhKUmh ZMLqWCR3CfM9RKWdEJFyCA3FDhUhUAruMBVRIfe2NYiaO0n4DQNmUW2PC7Swo6UsEzTyVWBCEQjgZJ4o vwEmXGDuVz1UV5jDIxsdKwVjGFW6BNQsXcE3UXUnFH SiSyWdNZL4EGZiKFQtNR5mXAO9DWQ5DPV9HPZzBzK3DSGoFFHeB2I7Kgy8MNN3LQQqFhMnRW0OAs3FAf A9HOU3rROmVu9GZrk3MShUWnHoIT2ECGg= ID Date Data Source [id number] 05/28/2021 09:10:59 AM EDT [facility] Name Value Range Interpretation Code Description Data Claribel rce(s) Supporting Document(s) Progress Note [facility] [id number]/LRYghDFPgf7EyUMuyAVw7AShlKCOpE4IbLYA6bL2aMUU4ANvQQtJjLuWoHeX3 lbm [file] [id number]== ID Date Data Source [id number] 05/07/2021 08:53:00 AM EDT [place] ([facility]) Name Value Range Interpretation Code Description Data Claribel rce(s) Supporting Document(s) Hemoglobin A1c/Hemoglobin.total in Blood 8.7 %_of_total_HGB <5.7 Above high normal Hemoglobin a1C [place] ([facility]) ID Date Data Source [id number] 05/07/2021 08:53:00 AM EDT [place] ([facility]) Name Value Range Interpretation Code Description Data Claribel rce(s) Supporting Document(s) Leukocytes [#/volume] in Blood by Automated count 5.2 thousand/uL 3 .8-10.8 White Blood Cell Count [place] ([facility]) Erythrocytes [#/volume] in Blood by Automated count 3.84 million/uL 3.80-5.10 Red Blood Cell Count [place] ([facility]) Hemoglobin [Mass/volume] in Blood 11.3 g/dL 11.7-15.5 Below l ow normal Hemoglobin [place] ([facility]) Hematocrit [Volume Fraction] of Blood by Automated count 33.0 % 35.0-45.0 Below low normal Hematocrit [place] ([facility]) Erythrocyte mean corpuscular volume [Entitic volume] by Auto mated count 85.9 fL 80.0-100.0 Mcv [place] ([facility]) Erythrocyte mean corpuscular hemoglobin [Entitic mass] by Automated count 29.4 pg 27.0-33.0 Mch [place] ([facility]) Erythrocyte mean corpuscular hemoglobin concentration [Mass/volume] by Automated count 34.2 g/dL 32.0-36.0 Mchc [facility] ([facility]) Erythrocyte distribution width [Ratio] by Automated count 12.7 % 11.0-15.0 Rdw [place] ([facility]) Platelets [#/volume] in Blood by Automated count 262 thousand/uL 14 0-400 Platelet Count [place] ([facility]) Platelet mean volume [Entitic volume] in Blood by Shirin 10.0 f L 7.5-12.5 Mpv [place] ([facility]) Neutrophils [#/volume] in Blood by Automated count 3052 cells/uL 15 00-7800 Absolute Neutrophils [place] ([facility]) Lymphocytes [#/volume] in Blood by Automated count 1758 cells/uL 85 0-3900 Absolute Lymphocytes [place] ([facility]) Monocytes [#/volume] in Blood by Automated count 328 cells/uL 200-9 50 Absolute Monocytes [place] ([facility]) Eosinophils [#/volume] in Blood by Automated count 21 cells/uL 15- 500 Absolute Eosinophils [place] ([facility]) Basophils [#/volume] in Blood by Automated count 42 cells/uL 0-200 Absolute Basophils [place] ([facility]) Neutrophils/100 leukocytes in Blood by Automated count 58.7 % 38-80 Neutrophils [place] ([facility]) Lymphocytes/100 leukocytes in Blood by Automated count 33.8 % 15-49 Lymphocytes [place] ([facility]) Monocytes/100 leukocytes in Blood by Automated count 6.3 % 0-13 Monocytes [place] ([facility]) Eosinophils/100 leukocytes in Blood by Automated count 0.4 % 0-8 Eosinophils [place] ([facility]) Basophils/100 leukocytes in Blood by Automated count 0.8 % 0-2 Basophils [facility] ([facility]) ID Date Data Source [id number] 05/07/2021 08:53:00 AM EDT [facility]) Name Value Range Interpretation Code Description Data Claribel rce(s) Supporting Document(s) Glucose [Mass/volume] in Serum or Plasma 153 mg/dL 65-99 Above high normal Glucose [facility] ([facility]) Urea nitrogen [Mass/volume] in Serum or Plasma 18 mg/dL 7-25 Urea Nitrogen (BUN) [facility]ND[facility] ([facility]) Creatinine [Mass/volume] in Serum or Plasma 0.88 mg/dL 0.50-1.10 Creatinine [facility] ([facility]) Glomerular filtration rate/1.73 sq M.pre dicted among non-blacks [Volume Rate/Area] in Serum, Plasma or Blood by Creatinine-based formula (CKD-EPI) 86 mL/min/1.73m2 > or = 60 eGFR Non-afr. [place] CYNDI ([facility]) Glomerular filtration rate/1.73 sq M.pre dicted among blacks [Volume Rate/Area] in Serum, Plasma or Blood by Creatinine-based formula (CKD-EPI) 100 mL/min/1.73m2 > or = 60 eGFR CYNDI ([facility]) Urea nitrogen/Creatinine [Mass Ratio] in Serum or Plasma not applic able 6-22 [facility] Sodium [Moles/volume] in Serum or Plasma 139 mmol/L 135-146 Sodium [facility] ([facility]) Potassium [Moles/volume] in Serum or Plasma 3.9 mmol/L 3.5-5.3 Potassium [facility] ([facility]) Chloride [Moles/volume] in Serum or Plasma 105 mmol/L 98-110 Chloride CYND[facility] ([facility]) Carbon dioxide, total [Moles/volume] in Serum or Plasma 28 mmol/L 20-32 Carbon Dioxide [facility]ND[facility] ([facility]) Calcium [Mass/volume] in Serum or Plasma 9.4 mg/dL 8.6-10.2 Calcium [place] ([facility]) Protein [Mass/volume] in Serum or Plasma 6.4 g/dL 6.1-8.1 Protein, Total [facility]ND[facility] ([facility]) Albumin [Mass/volume] in Serum or Plasma 3.7 g/dL 3.6-5.1 Albumin [place] ([facility] [facility]) Globulin [Mass/volume] in Serum by calculation 2.7 g/dL_(calc) 1.9- 3.7 Globulin [place] ([facility]) Albumin/Globulin [Mass Ratio] in Serum or Plasma 1.4 (calc) 1.0-2 .5 Albumin/globulin Ratio [place] ([facility]) Bilirubin.total [Mass/volume] in Serum or Plasma 0.3 mg/dL 0.2-1 .2 Bilirubin, Total CYND[place] ([facility]) Alkaline phosphatase [Enzymatic activity/volume] in Serum or Plasma 52 U/L 31-125 Alkaline Phosphatase CYNDI ([facility]) Aspartate aminotransferase [Enzymatic activity/volume] in Serum or Plasma 13 U/L 10-30 Ast CYNDI ([facility]) Alanine aminotransferase [Enzymatic activity/volume] in Seru m or Plasma 10 U/L 6-29 Alt CYNDI ([facility]) ID Date Data Source [id number] 05/07/2021 08:53:00 AM EDT [place] ([facility]) Name Value Range Interpretation Code Description Data Claribel rce(s) Supporting Document(s) Triiodothyronine resin uptake (T3RU) in Serum or Plasma 30 % 22 -35 T3 Uptake CYND[place] ([facility]) Thyroxine (T4) [Mass/volume] in Serum or Plasma 7.6 mcg/dL 5.1-11 .9 T4 (Thyroxine), Total CYND[place] ([facility]) Thyroxine (T4) free index in Serum or Plasma by calculation 1.4-3.8 Free T4 Index (T7) [place] ([facility]) Thyrotropin [Units/volume] in Serum or Plasma 2.45 mIU/L Tsh [facility]) ID Date Data Source [id number] 05/07/2021 08:53:00 AM EDT [facility]) Name Value Range Interpretation Code Description Data Claribel rce(s) Supporting Document(s) Triglyceride [Mass/volume] in Serum or Plasma 111 mg/dL <150 Triglycerides CYND[place] ([facility]) Cholesterol [Mass/volume] in Serum or Plasma 198 mg/dL <200 [facility], [facility] Cholesterol in HDL [Mass/volume] in Serum or Plasma 48 mg/dL > or = 50 Below low normal HDL Cholesterol CYNDI ([facility]) Cholesterol in LDL [Mass/volume] in Serum or Plasma by calculation 128 mg/dL_(calc) Above high normal LDL-cholesterol [place] ([facility]) Cholesterol.total/Cholesterol in HDL [Mass Ratio] in Serum o r Plasma 4.1 (calc) <5.0 Chol/hdlc Ratio CYND[place] ([facility]) Cholesterol non HDL [Mass/volume] in Serum or Plasma 150 mg/dL_( calc) <130 Above high normal Non HDL Cholesterol [place] ([facility]) ID Date Data Source [id number] 05/07/2021 08:53:00 AM EDT [facility]) Name Value Range Interpretation Code Description Data Claribel rce(s) Supporting Document(s) Iron [Mass/volume] in Serum or Plasma 40 mcg/dL 40-190 Iron, Total [place] ([facility]) Iron binding capacity [Mass/volume] in Serum or Plasma 311 m cg/dL_(calc) 250-450 Iron Binding Capacity CYNDI ([facility]) Iron saturation [Mass Fraction] in Serum or Plasma 13 %_(calc) 16-45 Below low normal % Saturation CYNDI ([facility]) Ferritin [Mass/volume] in Serum or Plasma 48 NG/mL 16-154 Ferritin [place] ([facility]) ID Date Data Source [id number] 04/02/2021 08:10:00 AM EDT [place] ([facility]) Name Value Range Interpretation Code Description Data Claribel rce(s) Supporting Document(s) bedside glucose 78 mg/dL 70-105 Bedside Glucose ATHJuan [place] ([facility]) ID Date Data Source [id number] 04/02/2021 08:10:00 AM EDT [place] ([facility]) Name Value Range Interpretation Code Description Data Claribel rce(s) Supporting Document(s) bedside glucose 78 mg/dL 70-105 Bedside Glucose ATHE ([facility]) ID Date Data Source [id number] 04/02/2021 08:10:00 AM EDT [facility]) Name Value Range Interpretation Code Description Data Claribel rce(s) Supporting Document(s) bedside glucose 78 mg/dL 70-105 Bedside Glucose ATHE [place] ([facility]) ID Date Data Source [id number] 04/02/2021 05:24:00 AM EDT [facility]) Name Value Range Interpretation Code Description Data Claribel rce(s) Supporting Document(s) glucose, fasting 50 mg/dL 70-100 Below low normal Glucose, Fast ing [place] ([facility]) blood urea nitrogen 9 mg/dL 7-18 Blood Urea Nitro gen [place] ([facility]) creatinine for GFR 0.62 mg/dL 0.55-1.30 Creatinine for GF R [place] ([facility]) glomerular filtration rate > 60.0 >60 Glomerula r Filtration Rate [place] ([facility]) sodium level 143 mEq/L 136-145 Sodium Level CYNDI ([facility]) potassium serum 3.2 mEq/L 3.5-5.1 Below low normal Potassium Seru m [place] ([facility]) chloride level 112 mEq/L 98-107 Above high normal Chloride Level [place] ([facility]) carbon dioxide level 28 mEq/L 21-32 Carbon Dioxide Level [place] ([facility]) anion gap 3 mEq/L 8-16 Below low normal Anion Gap [place] ( [facility]) calcium level 8.5 mg/dL 8.5-10.1 Calcium Level [place] ( [facility]) ID Date Data Source [id number] 04/02/2021 05:24:00 AM EDT [facility]) Name Value Range Interpretation Code Description Data Claribel rce(s) Supporting Document(s) white blood count 3.1 10 4.0-10.0 Below low normal White Blood Count [place] ([facility]) red blood count 3.63 10 4.00-5.40 Below low normal Red Blood Coun t [place] ([facility]) hemoglobin 10.8 g/dL 12.0-15.5 Below low normal Hemoglobin [place] ( [facility]) hematocrit 31.8 % 36.0-47.0 Below low normal Hematocrit [place] ( [facility]) mean corpuscular volume 87.6 fL 80.0-96.0 Mean Corpusc ular Volume [place] ([facility]) mean corpuscular hemoglobin 29.8 pg 27.0-33.0 Mean Cor puscular Hemoglobin [place] ([facility]) mean corpuscular HGB conc 34.0 g/dL 32.0-36.5 Mean Corpu scular HGB Conc [place] ([facility]) red cell distribution width 11.9 % 11.5-14.5 Red Cell Distribution Width [place] ([facility]) platelet count, automated 196 10 150-450 Platelet C ount, Automated [place] ([facility]) nucleated red blood cell % 0.0 % 0-0 Nucleated Red Blood Cell % [place] ([facility]) ID Date Data Source [id number] 04/02/2021 05:24:00 AM EDT [place] ([facility]) Name Value Range Interpretation Code Description Data Claribel rce(s) Supporting Document(s) glucose, fasting 50 mg/dL 70-100 Below low normal Glucose, Fast ing [place] ([facility]) blood urea nitrogen 9 mg/dL 7-18 Blood Urea Nitro gen [place] ([facility]) creatinine for GFR 0.62 mg/dL 0.55-1.30 Creatinine for GF R [place] ([facility]) glomerular filtration rate > 60.0 >60 Glomerula r Filtration Rate [place] ([facility]) sodium level 143 mEq/L 136-145 Sodium Level [place] ([facility]) potassium serum 3.2 mEq/L 3.5-5.1 Below low normal Potassium Seru m [place] ([facility]) chloride level 112 mEq/L 98-107 Above high normal Chloride Level [place] ([facility]) carbon dioxide level 28 mEq/L 21-32 Carbon Dioxide Level [place] ([facility]) anion gap 3 mEq/L 8-16 Below low normal Anion Gap [place] ( [facility]) calcium level 8.5 mg/dL 8.5-10.1 Calcium Level [place] ( [facility]) ID Date Data Source [id number] 04/02/2021 05:24:00 AM EDT [place] ([facility]) Name Value Range Interpretation Code Description Data Claribel rce(s) Supporting Document(s) white blood count 3.1 10 4.0-10.0 Below low normal White Blood Count [place] ([facility]) red blood count 3.63 10 4.00-5.40 Below low normal Red Blood Coun t [place] ([facility]) hemoglobin 10.8 g/dL 12.0-15.5 Below low normal Hemoglobin [place] ( [facility]) hematocrit 31.8 % 36.0-47.0 Below low normal Hematocrit [place] ( [facility]) mean corpuscular volume 87.6 fL 80.0-96.0 Mean Corpusc ular Volume [place] ([facility]) mean corpuscular hemoglobin 29.8 pg 27.0-33.0 Mean Cor puscular Hemoglobin [place] ([facility]) mean corpuscular HGB conc 34.0 g/dL 32.0-36.5 Mean Corpu scular HGB Conc [place] ([facility]) red cell distribution width 11.9 % 11.5-14.5 Red Cell Distribution Width [place] ([facility]) platelet count, automated 196 10 150-450 Platelet C ount, Automated [place] ([facility]) nucleated red blood cell % 0.0 % 0-0 Nucleated Red Blood Cell % [place] ([facility]) ID Date Data Source [id number] 04/02/2021 05:24:00 AM EDT [place] ([facility]) Name Value Range Interpretation Code Description Data Claribel rce(s) Supporting Document(s) glucose, fasting 50 mg/dL 70-100 Below low normal Glucose, Fast ing [place] ([facility]) blood urea nitrogen 9 mg/dL 7-18 Blood Urea Nitro gen [place] ([facility]) creatinine for GFR 0.62 mg/dL 0.55-1.30 Creatinine for GF R [place] ([facility]) glomerular filtration rate > 60.0 >60 Glomerula r Filtration Rate [place] ([facility]) sodium level 143 mEq/L 136-145 Sodium Level [place] ([facility]) potassium serum 3.2 mEq/L 3.5-5.1 Below low normal Potassium Seru m [place] ([facility]) chloride level 112 mEq/L 98-107 Above high normal Chloride Level [place] ([facility]) carbon dioxide level 28 mEq/L 21-32 Carbon Dioxide Level [facility]) anion gap 3 mEq/L 8-16 Below low normal Anion Gap [place] ( [facility]) calcium level 8.5 mg/dL 8.5-10.1 Calcium Level [place] ( [facility]) ID Date Data Source [id number] 04/02/2021 05:24:00 AM EDT [place] ([facility]) Name Value Range Interpretation Code Description Data Claribel rce(s) Supporting Document(s) white blood count 3.1 10 4.0-10.0 Below low normal White Blood Count [place] ([facility]) red blood count 3.63 10 4.00-5.40 Below low normal Red Blood Coun t [place] ([facility]) hemoglobin 10.8 g/dL 12.0-15.5 Below low normal Hemoglobin [place] ( [facility]) hematocrit 31.8 % 36.0-47.0 Below low normal Hematocrit [place] ( [facility]) mean corpuscular volume 87.6 fL 80.0-96.0 Mean Corpusc ular Volume [place] ([facility]) mean corpuscular hemoglobin 29.8 pg 27.0-33.0 Mean Cor puscular Hemoglobin [place] ([facility]) mean corpuscular HGB conc 34.0 g/dL 32.0-36.5 Mean Corpu scular HGB Conc [place] ([facility]) red cell distribution width 11.9 % 11.5-14.5 Red Cell Distribution Width [place] ([facility]) platelet count, automated 196 10 150-450 Platelet C ount, Automated [place] ([facility]) nucleated red blood cell % 0.0 % 0-0 Nucleated Red Blood Cell % [place] ([facility]) ID Date Data Source [id number] 04/01/2021 08:39:00 PM EDT [place] ([facility]) Name Value Range Interpretation Code Description Data Claribel rce(s) Supporting Document(s) bedside glucose 155 mg/dL 70-105 Above high normal Bedside Gluco se [place] ([facility]) ID Date Data Source [id number] 04/01/2021 08:39:00 PM EDT [place] ([facility]) Name Value Range Interpretation Code Description Data Claribel rce(s) Supporting Document(s) bedside glucose 155 mg/dL 70-105 Above high normal Bedside Gluco se [place] ([facility]) ID Date Data Source [id number] 04/01/2021 08:39:00 PM EDT [place] ([facility]) Name Value Range Interpretation Code Description Data Claribel rce(s) Supporting Document(s) bedside glucose 155 mg/dL 70-105 Above high normal Bedside Gluco se [place] ([facility]) ID Date Data Source [id number] 04/01/2021 04:57:00 PM EDT [facility]) Name Value Range Interpretation Code Description Data Claribel rce(s) Supporting Document(s) bedside glucose 91 mg/dL 70-105 Bedside Glucose ATHE [place] ([facility]) ID Date Data Source [id number] 04/01/2021 04:57:00 PM EDT [facility]) Name Value Range Interpretation Code Description Data Claribel rce(s) Supporting Document(s) bedside glucose 91 mg/dL 70-105 Bedside Glucose ATHE ([facility]) ID Date Data Source [id number] 04/01/2021 04:57:00 PM EDT [facility]) Name Value Range Interpretation Code Description Data Claribel rce(s) Supporting Document(s) bedside glucose 91 mg/dL 70-105 Bedside Glucose ATHE NA ([facility]) ID Date Data Source [id number] 04/01/2021 11:45:00 AM EDT [facility]) Name Value Range Interpretation Code Description Data Claribel rce(s) Supporting Document(s) bedside glucose 171 mg/dL 70-105 Above high normal Bedside Gluco se [place] ([facility]) ID Date Data Source [id number] 04/01/2021 11:45:00 AM EDT [facility]) Name Value Range Interpretation Code Description Data Claribel rce(s) Supporting Document(s) bedside glucose 171 mg/dL 70-105 Above high normal Bedside Gluco se [place] ([facility]) ID Date Data Source [id number] 04/01/2021 11:45:00 AM EDT [facility]) Name Value Range Interpretation Code Description Data Claribel rce(s) Supporting Document(s) bedside glucose 171 mg/dL 70-105 Above high normal Bedside Gluco se [place] ([facility]) ID Date Data Source [id number] 04/01/2021 06:09:00 AM EDT [facility]) Name Value Range Interpretation Code Description Data Claribel rce(s) Supporting Document(s) glucose, fasting 71 mg/dL 70-100 Glucose, Fasting AT [facility]) blood urea nitrogen 9 mg/dL 7-18 Blood Urea Nitro gen [place] ([facility]) creatinine for GFR 0.74 mg/dL 0.55-1.30 Creatinine for GF R [place] ([facility]) glomerular filtration rate > 60.0 >60 Glomerula r Filtration Rate [place] ([facility]) sodium level 146 mEq/L 136-145 Above high normal Sodium Level ATH NIKOLAS ([facility]) potassium serum 3.6 mEq/L 3.5-5.1 Potassium Serum ATH NA ([facility]) chloride level 115 mEq/L 98-107 Above high normal Chloride Level [place] ([facility]) carbon dioxide level 26 mEq/L 21-32 Carbon Dioxide Level [place] ([facility]) anion gap 5 mEq/L 8-16 Below low normal Anion Gap [place] ( [facility]) calcium level 9.6 mg/dL 8.5-10.1 Calcium Level [place] ( [facility]) ID Date Data Source [id number] 04/01/2021 06:09:00 AM EDT [place] ([facility]) Name Value Range Interpretation Code Description Data Claribel rce(s) Supporting Document(s) white blood count 4.1 10 4.0-10.0 White Blood Count [place] ([facility]) red blood count 3.92 10 4.00-5.40 Below low normal Red Blood Coun t [place] ([facility]) hemoglobin 11.5 g/dL 12.0-15.5 Below low normal Hemoglobin [place] ( [facility]) hematocrit 34.3 % 36.0-47.0 Below low normal Hematocrit [place] ( [facility]) mean corpuscular volume 87.5 fL 80.0-96.0 Mean Corpusc ular Volume [place] ([facility]) mean corpuscular hemoglobin 29.3 pg 27.0-33.0 Mean Cor puscular Hemoglobin [place] ([facility]) mean corpuscular HGB conc 33.5 g/dL 32.0-36.5 Mean Corpu scular HGB Conc [place] ([facility]) red cell distribution width 12.2 % 11.5-14.5 Red Cell Distribution Width [place] ([facility]) platelet count, automated 205 10 150-450 Platelet C ount, Automated [place] ([facility]) nucleated red blood cell % 0.0 % 0-0 Nucleated Red Blood Cell % [place] ([facility]) ID Date Data Source [id number] 04/01/2021 06:09:00 AM EDT [place] ([facility]) Name Value Range Interpretation Code Description Data Claribel rce(s) Supporting Document(s) glucose, fasting 71 mg/dL 70-100 Glucose, Fasting AT [facility] ([facility]) blood urea nitrogen 9 mg/dL 7-18 Blood Urea Nitro gen [place] ([facility]) creatinine for GFR 0.74 mg/dL 0.55-1.30 Creatinine for GF R [place] ([facility]) glomerular filtration rate > 60.0 >60 Glomerula r Filtration Rate [place] ([facility]) sodium level 146 mEq/L 136-145 Above high normal Sodium Level ATH NIKOLAS ([facility]) potassium serum 3.6 mEq/L 3.5-5.1 Potassium Serum ATHE NA ([facility]) chloride level 115 mEq/L 98-107 Above high normal Chloride Level [place] ([facility]) carbon dioxide level 26 mEq/L 21-32 Carbon Dioxide Level [place] ([facility]) anion gap 5 mEq/L 8-16 Below low normal Anion Gap [place] ( [facility]) calcium level 9.6 mg/dL 8.5-10.1 Calcium Level [place] ( [facility]) ID Date Data Source [id number] 04/01/2021 06:09:00 AM EDT [place] ([facility]) Name Value Range Interpretation Code Description Data Claribel rce(s) Supporting Document(s) white blood count 4.1 10 4.0-10.0 White Blood Count [place] ([facility]) red blood count 3.92 10 4.00-5.40 Below low normal Red Blood Coun t [place] ([facility]) hemoglobin 11.5 g/dL 12.0-15.5 Below low normal Hemoglobin [place] ( [facility]) hematocrit 34.3 % 36.0-47.0 Below low normal Hematocrit [place] ( [facility]) mean corpuscular volume 87.5 fL 80.0-96.0 Mean Corpusc ular Volume [place] ([facility]) mean corpuscular hemoglobin 29.3 pg 27.0-33.0 Mean Cor puscular Hemoglobin [place] ([facility]) mean corpuscular HGB conc 33.5 g/dL 32.0-36.5 Mean Corpu scular HGB Conc [place] ([facility]) red cell distribution width 12.2 % 11.5-14.5 Red Cell Distribution Width [place] ([facility]) platelet count, automated 205 10 150-450 Platelet C ount, Automated [place] ([facility]) nucleated red blood cell % 0.0 % 0-0 Nucleated Red Blood Cell % [place] ([facility]) ID Date Data Source [id number] 04/01/2021 06:09:00 AM EDT [place] ([facility]) Name Value Range Interpretation Code Description Data Claribel rce(s) Supporting Document(s) glucose, fasting 71 mg/dL 70-100 Glucose, Fasting AT [facility]) blood urea nitrogen 9 mg/dL 7-18 Blood Urea Nitro gen [place] ([facility]) creatinine for GFR 0.74 mg/dL 0.55-1.30 Creatinine for GF R [place] ([facility]) glomerular filtration rate > 60.0 >60 Glomerula r Filtration Rate [place] ([facility]) sodium level 146 mEq/L 136-145 Above high normal Sodium Level ATH NIKOLAS ([facility]) potassium serum 3.6 mEq/L 3.5-5.1 Potassium Serum ATHE NA ([facility]) chloride level 115 mEq/L 98-107 Above high normal Chloride Level [place] ([facility]) carbon dioxide level 26 mEq/L 21-32 Carbon Dioxide Level [place] ([facility]) anion gap 5 mEq/L 8-16 Below low normal Anion Gap [place] ( [facility]) calcium level 9.6 mg/dL 8.5-10.1 Calcium Level [place] ( [facility]) ID Date Data Source [id number] 04/01/2021 06:09:00 AM EDT [place] ([facility]) Name Value Range Interpretation Code Description Data Claribel rce(s) Supporting Document(s) white blood count 4.1 10 4.0-10.0 White Blood Count [place] ([facility]) red blood count 3.92 10 4.00-5.40 Below low normal Red Blood Coun t [place] ([facility]) hemoglobin 11.5 g/dL 12.0-15.5 Below low normal Hemoglobin [place] ( [facility]) hematocrit 34.3 % 36.0-47.0 Below low normal Hematocrit CYND[place] ( [facility]) mean corpuscular volume 87.5 fL 80.0-96.0 Mean Corpusc ular Volume [place] ([facility]) mean corpuscular hemoglobin 29.3 pg 27.0-33.0 Mean Cor puscular Hemoglobin [place] ([facility]) mean corpuscular HGB conc 33.5 g/dL 32.0-36.5 Mean Corpu scular HGB Conc CY[place] ([facility]) red cell distribution width 12.2 % 11.5-14.5 Red Cell Distribution Width [place] ([facility]) platelet count, automated 205 10 150-450 Platelet C ount, Automated [place] ([facility]) nucleated red blood cell % 0.0 % 0-0 Nucleated Red Blood Cell % [place] ([facility]) ID Date Data Source [id number] 03/31/2021 08:42:00 PM EDT [facility]) Name Value Range Interpretation Code Description Data Claribel rce(s) Supporting Document(s) bedside glucose 182 mg/dL 70-105 Above high normal Bedside Gluco se [facility]) ID Date Data Source [id number] 03/31/2021 08:42:00 PM EDT [facility]) Name Value Range Interpretation Code Description Data Claribel rce(s) Supporting Document(s) bedside glucose 182 mg/dL 70-105 Above high normal Bedside Gluco se [facility]) ID Date Data Source [id number] 03/31/2021 08:42:00 PM EDT [facility]) Name Value Range Interpretation Code Description Data Claribel rce(s) Supporting Document(s) bedside glucose 182 mg/dL 70-105 Above high normal Bedside Gluco se [facility]) ID Date Data Source [id number] 03/31/2021 04:45:00 PM EDT [facility]) Name Value Range Interpretation Code Description Data Claribel rce(s) Supporting Document(s) bedside glucose 166 mg/dL 70-105 Above high normal Bedside Gluco se [facility]) ID Date Data Source [id number] 03/31/2021 04:45:00 PM EDT [facility]) Name Value Range Interpretation Code Description Data Claribel rce(s) Supporting Document(s) bedside glucose 166 mg/dL 70-105 Above high normal Bedside Gluco se [facility]) ID Date Data Source [id number] 03/31/2021 04:45:00 PM EDT [facility]) Name Value Range Interpretation Code Description Data Claribel rce(s) Supporting Document(s) bedside glucose 166 mg/dL 70-105 Above high normal Bedside Gluco se [facility]) ID Date Data Source [id number] 03/31/2021 11:55:00 AM EDT [facility]) Name Value Range Interpretation Code Description Data Claribel rce(s) Supporting Document(s) bedside glucose 256 mg/dL 70-105 Above high normal Bedside Gluco se [facility]) ID Date Data Source [id number] 03/31/2021 11:55:00 AM EDT [facility]) Name Value Range Interpretation Code Description Data Claribel rce(s) Supporting Document(s) bedside glucose 256 mg/dL 70-105 Above high normal Bedside Gluco se [facility]) ID Date Data Source [id number] 03/31/2021 11:55:00 AM EDT [facility]) Name Value Range Interpretation Code Description Data Claribel rce(s) Supporting Document(s) bedside glucose 256 mg/dL 70-105 Above high normal Bedside Gluco se [place] [facility]) ID Date Data Source [id number] 03/31/2021 06:54:00 AM EDT [facility]) Name Value Range Interpretation Code Description Data Claribel rce(s) Supporting Document(s) bedside glucose 154 mg/dL 70-105 Above high normal Bedside Gluco se [place] ([facility]) ID Date Data Source [id number] 03/31/2021 06:54:00 AM EDT [facility]) Name Value Range Interpretation Code Description Data Claribel rce(s) Supporting Document(s) bedside glucose 154 mg/dL 70-105 Above high normal Bedside Gluco se [facility]) ID Date Data Source [id number] 03/31/2021 06:54:00 AM EDT [facility]) Name Value Range Interpretation Code Description Data Claribel rce(s) Supporting Document(s) bedside glucose 154 mg/dL 70-105 Above high normal Bedside Gluco se [facility]) ID Date Data Source [id number] 03/31/2021 06:04:00 AM EDT [facility]) Name Value Range Interpretation Code Description Data Claribel rce(s) Supporting Document(s) bedside glucose 139 mg/dL 70-105 Above high normal Bedside Gluco se [facility]) ID Date Data Source [id number] 03/31/2021 06:04:00 AM EDT [facility]) Name Value Range Interpretation Code Description Data Claribel rce(s) Supporting Document(s) bedside glucose 139 mg/dL 70-105 Above high normal Bedside Gluco se [facility]) ID Date Data Source [id number] 03/31/2021 06:04:00 AM EDT [facility]) Name Value Range Interpretation Code Description Data Clarible rce(s) Supporting Document(s) bedside glucose 139 mg/dL 70-105 Above high normal Bedside Gluco se [place] ([facility]) ID Date Data Source [id number] 03/31/2021 05:16:00 AM EDT [facility]) Name Value Range Interpretation Code Description Data Claribel rce(s) Supporting Document(s) bedside glucose 132 mg/dL 70-105 Above high normal Bedside Gluco se [place] ([facility]) ID Date Data Source [id number] 03/31/2021 05:16:00 AM EDT [facility]) Name Value Range Interpretation Code Description Data Claribel rce(s) Supporting Document(s) bedside glucose 132 mg/dL 70-105 Above high normal Bedside Gluco se [place] ([facility]) ID Date Data Source [id number] 03/31/2021 05:16:00 AM EDT [facility]) Name Value Range Interpretation Code Description Data Clraibel rce(s) Supporting Document(s) bedside glucose 132 mg/dL 70-105 Above high normal Bedside Gluco se [place] ([facility]) ID Date Data Source [id number] 03/31/2021 05:10:00 AM EDT [facility]) Name Value Range Interpretation Code Description Data Claribel rce(s) Supporting Document(s) glucose, fasting 128 mg/dL 70-100 Above high normal Glucose, Fas ting [place] ([facility]) blood urea nitrogen 7 mg/dL 7-18 Blood Urea Nitro gen [place] ([facility]) creatinine for GFR 1.04 mg/dL 0.55-1.30 Creatinine for GF R [place] ([facility]) glomerular filtration rate > 60.0 >60 Glomerula r Filtration Rate [place] ([facility]) sodium level 142 mEq/L 136-145 Sodium Level [place] ([facility]) potassium serum 3.6 mEq/L 3.5-5.1 Potassium Serum [facility] NA ([facility]) chloride level 118 mEq/L 98-107 Above high normal Chloride Level [place] ([facility]) carbon dioxide level 19 mEq/L 21-32 Below low normal Carbon Di oxide Level [place] ([facility]) anion gap 5 mEq/L 8-16 Below low normal Anion Gap [place] ( [facility]) calcium level 8.3 mg/dL 8.5-10.1 Below low normal Calcium Level AT [facility]) ID Date Data Source [id number] 03/31/2021 05:10:00 AM EDT [place] ([facility]) Name Value Range Interpretation Code Description Data Claribel rce(s) Supporting Document(s) white blood count 5.1 10 4.0-10.0 White Blood Count [place] ([facility]) red blood count 3.65 10 4.00-5.40 Below low normal Red Blood Coun t [place] ([facility]) hemoglobin 10.9 g/dL 12.0-15.5 Below low normal Hemoglobin [place] ( [facility]) hematocrit 32.5 % 36.0-47.0 Below low normal Hematocrit [place] ( [facility]) mean corpuscular volume 89.0 fL 80.0-96.0 Mean Corpusc ular Volume [place] ([facility]) mean corpuscular hemoglobin 29.9 pg 27.0-33.0 Mean Cor puscular Hemoglobin [place] ([facility]) mean corpuscular HGB conc 33.5 g/dL 32.0-36.5 Mean Corpu scular HGB Conc [place] ([facility]) red cell distribution width 12.1 % 11.5-14.5 Red Cell Distribution Width [place] ([facility]) platelet count, automated 220 10 150-450 Platelet C ount, Automated [place] ([facility]) nucleated red blood cell % 0.0 % 0-0 Nucleated Red Blood Cell % [place] ([facility]) ID Date Data Source [id number] 03/31/2021 05:10:00 AM EDT [place] ([facility]) Name Value Range Interpretation Code Description Data Claribel rce(s) Supporting Document(s) glucose, fasting 128 mg/dL 70-100 Above high normal Glucose, Fas ting [place] ([facility]) blood urea nitrogen 7 mg/dL 7-18 Blood Urea Nitro gen [place] ([facility]) creatinine for GFR 1.04 mg/dL 0.55-1.30 Creatinine for GF R [place] ([facility]) glomerular filtration rate > 60.0 >60 Glomerula r Filtration Rate [place] ([facility]) sodium level 142 mEq/L 136-145 Sodium Level [place] ([facility]) potassium serum 3.6 mEq/L 3.5-5.1 Potassium Serum [facility] ([facility]) chloride level 118 mEq/L 98-107 Above high normal Chloride Level [place] ([facility]) carbon dioxide level 19 mEq/L 21-32 Below low normal Carbon Di oxide Level [place] ([facility]) anion gap 5 mEq/L 8-16 Below low normal Anion Gap [place] ( [facility]) calcium level 8.3 mg/dL 8.5-10.1 Below low normal Calcium Level AT [place] ([facility]) ID Date Data Source [id number] 03/31/2021 05:10:00 AM EDT [place] ([facility]) Name Value Range Interpretation Code Description Data Claribel rce(s) Supporting Document(s) white blood count 5.1 10 4.0-10.0 White Blood Count [place] ([facility]) red blood count 3.65 10 4.00-5.40 Below low normal Red Blood Coun t [place] ([facility]) hemoglobin 10.9 g/dL 12.0-15.5 Below low normal Hemoglobin [place] ( [facility]) hematocrit 32.5 % 36.0-47.0 Below low normal Hematocrit [place] ( [facility]) mean corpuscular volume 89.0 fL 80.0-96.0 Mean Corpusc ular Volume [place] ([facility]) mean corpuscular hemoglobin 29.9 pg 27.0-33.0 Mean Cor puscular Hemoglobin [place] ([facility]) mean corpuscular HGB conc 33.5 g/dL 32.0-36.5 Mean Corpu scular HGB Conc [place] ([facility]) red cell distribution width 12.1 % 11.5-14.5 Red Cell Distribution Width [place] ([facility]) platelet count, automated 220 10 150-450 Platelet C ount, Automated [place] ([facility]) nucleated red blood cell % 0.0 % 0-0 Nucleated Red Blood Cell % [place] ([facility]) ID Date Data Source [id number] 03/31/2021 05:10:00 AM EDT [place] ([facility]) Name Value Range Interpretation Code Description Data Claribel rce(s) Supporting Document(s) glucose, fasting 128 mg/dL 70-100 Above high normal Glucose, Fas ting [place] ([facility]) blood urea nitrogen 7 mg/dL 7-18 Blood Urea Nitro gen [place] ([facility]) creatinine for GFR 1.04 mg/dL 0.55-1.30 Creatinine for GF R [place] ([facility]) glomerular filtration rate > 60.0 >60 Glomerula r Filtration Rate [place] ([facility]) sodium level 142 mEq/L 136-145 Sodium Level [place] ([facility]) potassium serum 3.6 mEq/L 3.5-5.1 Potassium Serum ATH NA [facility]) chloride level 118 mEq/L 98-107 Above high normal Chloride Level [place] ([facility]) carbon dioxide level 19 mEq/L 21-32 Below low normal Carbon Di oxide Level [place] ([facility]) anion gap 5 mEq/L 8-16 Below low normal Anion Gap [place] ( [facility]) calcium level 8.3 mg/dL 8.5-10.1 Below low normal Calcium Level AT [facility] ([facility]) ID Date Data Source [id number] 03/31/2021 05:10:00 AM EDT [place] ([facility]) Name Value Range Interpretation Code Description Data Claribel rce(s) Supporting Document(s) white blood count 5.1 10 4.0-10.0 White Blood Count [place] ([facility]) red blood count 3.65 10 4.00-5.40 Below low normal Red Blood Coun t [place] ([facility]) hemoglobin 10.9 g/dL 12.0-15.5 Below low normal Hemoglobin [place] ( [facility]) hematocrit 32.5 % 36.0-47.0 Below low normal Hematocrit [place] ( [facility]) mean corpuscular volume 89.0 fL 80.0-96.0 Mean Corpusc ular Volume [place] ([facility]) mean corpuscular hemoglobin 29.9 pg 27.0-33.0 Mean Cor puscular Hemoglobin [place] ([facility]) mean corpuscular HGB conc 33.5 g/dL 32.0-36.5 Mean Corpu scular HGB Conc [place] ([facility]) red cell distribution width 12.1 % 11.5-14.5 Red Cell Distribution Width [place] ([facility]) platelet count, automated 220 10 150-450 Platelet C ount, Automated [place] ([facility]) nucleated red blood cell % 0.0 % 0-0 Nucleated Red Blood Cell % [place] ([facility]) ID Date Data Source [id number] 03/31/2021 04:06:00 AM EDT [place] ([facility]) Name Value Range Interpretation Code Description Data Claribel rce(s) Supporting Document(s) bedside glucose 150 mg/dL 70-105 Above high normal Bedside Gluco se [place] ([facility]) ID Date Data Source [id number] 03/31/2021 04:06:00 AM EDT [facility]) Name Value Range Interpretation Code Description Data Claribel rce(s) Supporting Document(s) bedside glucose 150 mg/dL 70-105 Above high normal Bedside Gluco se [place] ([facility]) ID Date Data Source [id number] 03/31/2021 04:06:00 AM EDT [facility]) Name Value Range Interpretation Code Description Data Claribel rce(s) Supporting Document(s) bedside glucose 150 mg/dL 70-105 Above high normal Bedside Gluco se [facility]) ID Date Data Source [id number] 03/31/2021 03:17:00 AM EDT [facility]) Name Value Range Interpretation Code Description Data Claribel rce(s) Supporting Document(s) bedside glucose 164 mg/dL 70-105 Above high normal Bedside Gluco se [facility]) ID Date Data Source [id number] 03/31/2021 03:17:00 AM EDT [facility]) Name Value Range Interpretation Code Description Data Claribel rce(s) Supporting Document(s) bedside glucose 164 mg/dL 70-105 Above high normal Bedside Gluco se [facility]) ID Date Data Source [id number] 03/31/2021 03:17:00 AM EDT [facility]) Name Value Range Interpretation Code Description Data Claribel rce(s) Supporting Document(s) bedside glucose 164 mg/dL 70-105 Above high normal Bedside Gluco se [facility]) ID Date Data Source [id number] 03/31/2021 02:04:00 AM EDT [facility]) Name Value Range Interpretation Code Description Data Claribel rce(s) Supporting Document(s) bedside glucose 193 mg/dL 70-105 Above high normal Bedside Gluco se [place] ([facility]) ID Date Data Source [id number] 03/31/2021 02:04:00 AM EDT [place] ([facility]) Name Value Range Interpretation Code Description Data Claribel rce(s) Supporting Document(s) bedside glucose 193 mg/dL 70-105 Above high normal Bedside Gluco se [place] ([facility]) ID Date Data Source [id number] 03/31/2021 02:04:00 AM EDT [facility]) Name Value Range Interpretation Code Description Data Claribel rce(s) Supporting Document(s) bedside glucose 193 mg/dL 70-105 Above high normal Bedside Gluco se [place] ([facility]) ID Date Data Source [id number] 03/31/2021 01:04:00 AM EDT [facility]) Name Value Range Interpretation Code Description Data Claribel rce(s) Supporting Document(s) bedside glucose 103 mg/dL 70-105 Bedside Glucose [facility] [place] ([facility]) ID Date Data Source [id number] 03/31/2021 01:04:00 AM EDT [facility]) Name Value Range Interpretation Code Description Data Claribel rce(s) Supporting Document(s) bedside glucose 103 mg/dL 70-105 Bedside Glucose [facility] [place] ([facility]) ID Date Data Source [id number] 03/31/2021 01:04:00 AM EDT [facility]) Name Value Range Interpretation Code Description Data Claribel rce(s) Supporting Document(s) bedside glucose 103 mg/dL 70-105 Bedside Glucose [facility] [place] ([facility]) ID Date Data Source [id number] 03/31/2021 01:01:00 AM EDT [place] ([facility]) Name Value Range Interpretation Code Description Data Claribel rce(s) Supporting Document(s) glucose, fasting 173 mg/dL 70-100 Above high normal Glucose, Fas ting [place] ([facility]) blood urea nitrogen 9 mg/dL 7-18 Blood Urea Nitro gen [place] ([facility]) creatinine for GFR 1.02 mg/dL 0.55-1.30 Creatinine for GF R [place] ([facility]) glomerular filtration rate > 60.0 >60 Glomerula r Filtration Rate [place] ([facility]) sodium level 139 mEq/L 136-145 Sodium Level [place] ([facility]) potassium serum 3.9 mEq/L 3.5-5.1 Potassium Serum [facility] NA ([facility]) chloride level 112 mEq/L 98-107 Above high normal Chloride Level [place] ([facility]) carbon dioxide level 18 mEq/L 21-32 Below low normal Carbon Di oxide Level [place] ([facility]) anion gap 9 mEq/L 8-16 Anion Gap [place] ([facility]) calcium level 8.2 mg/dL 8.5-10.1 Below low normal Calcium Level AT [facility]) ID Date Data Source [id number] 03/31/2021 01:01:00 AM EDT [place] ([facility]) Name Value Range Interpretation Code Description Data Claribel rce(s) Supporting Document(s) glucose, fasting 173 mg/dL 70-100 Above high normal Glucose, Fas ting [place] ([facility]) blood urea nitrogen 9 mg/dL 7-18 Blood Urea Nitro gen [place] ([facility]) creatinine for GFR 1.02 mg/dL 0.55-1.30 Creatinine for GF R [place] ([facility]) glomerular filtration rate > 60.0 >60 Glomerula r Filtration Rate [facility] ([facility]) sodium level 139 mEq/L 136-145 Sodium Level [place] ([facility]) potassium serum 3.9 mEq/L 3.5-5.1 Potassium Serum [facility] NA ([facility]) chloride level 112 mEq/L 98-107 Above high normal Chloride Level [place] ([facility]) carbon dioxide level 18 mEq/L 21-32 Below low normal Carbon Di oxide Level [place] ([facility]) anion gap 9 mEq/L 8-16 Anion Gap [place] ([facility]) calcium level 8.2 mg/dL 8.5-10.1 Below low normal Calcium Level AT [facility]) ID Date Data Source [id number] 03/31/2021 01:01:00 AM EDT [facility]) Name Value Range Interpretation Code Description Data Claribel rce(s) Supporting Document(s) glucose, fasting 173 mg/dL 70-100 Above high normal Glucose, Fas ting [place] ([facility]) blood urea nitrogen 9 mg/dL 7-18 Blood Urea Nitro gen [place] ([facility]) creatinine for GFR 1.02 mg/dL 0.55-1.30 Creatinine for GF R [place] ([facility]) glomerular filtration rate > 60.0 >60 Glomerula r Filtration Rate [place] ([facility]) sodium level 139 mEq/L 136-145 Sodium Level [place] ([facility]) potassium serum 3.9 mEq/L 3.5-5.1 Potassium Serum [facility] ([facility]) chloride level 112 mEq/L 98-107 Above high normal Chloride Level [place] ([facility]) carbon dioxide level 18 mEq/L 21-32 Below low normal Carbon Di oxide Level [place] ([facility]) anion gap 9 mEq/L 8-16 Anion Gap [place] ([facility]) calcium level 8.2 mg/dL 8.5-10.1 Below low normal Calcium Level AT [facility]) ID Date Data Source [id number] 03/31/2021 12:10:00 AM EDT [facility]) Name Value Range Interpretation Code Description Data Claribel rce(s) Supporting Document(s) bedside glucose 143 mg/dL 70-105 Above high normal Bedside Gluco se [facility]) ID Date Data Source [id number] 03/31/2021 12:10:00 AM EDT [facility]) Name Value Range Interpretation Code Description Data Claribel rce(s) Supporting Document(s) bedside glucose 143 mg/dL 70-105 Above high normal Bedside Gluco se [facility]) ID Date Data Source [id number] 03/31/2021 12:10:00 AM EDT [facility]) Name Value Range Interpretation Code Description Data Claribel rce(s) Supporting Document(s) bedside glucose 143 mg/dL 70-105 Above high normal Bedside Gluco se [facility]) ID Date Data Source [id number] 03/30/2021 11:09:00 PM EDT [facility]) Name Value Range Interpretation Code Description Data Claribel rce(s) Supporting Document(s) bedside glucose 155 mg/dL 70-105 Above high normal Bedside Gluco se [facility]) ID Date Data Source [id number] 03/30/2021 11:09:00 PM EDT [facility]) Name Value Range Interpretation Code Description Data Claribel rce(s) Supporting Document(s) bedside glucose 155 mg/dL 70-105 Above high normal Bedside Gluco se [facility]) ID Date Data Source [id number] 03/30/2021 11:09:00 PM EDT [facility]) Name Value Range Interpretation Code Description Data Claribel rce(s) Supporting Document(s) bedside glucose 155 mg/dL 70-105 Above high normal Bedside Gluco se [place] ([facility]) ID Date Data Source [id number] 03/30/2021 10:03:00 [facility] Name Value Range Interpretation Code Description Data Claribel rce(s) Supporting Document(s) bedside glucose 160 mg/dL 70-105 Above high normal Bedside Gluco se [place] ([facility]) ID Date Data Source [id number] 03/30/2021 10:03:00 PM EDT [facility]) Name Value Range Interpretation Code Description Data Claribel rce(s) Supporting Document(s) bedside glucose 160 mg/dL 70-105 Above high normal Bedside Gluco se [place] ([facility]) ID Date Data Source [id number] 03/30/2021 10:03:00 PM EDT [facility]) Name Value Range Interpretation Code Description Data Claribel rce(s) Supporting Document(s) bedside glucose 160 mg/dL 70-105 Above high normal Bedside Gluco se [place] ([facility]) ID Date Data Source [id number] 03/30/2021 09:10:00 PM EDT [facility]) Name Value Range Interpretation Code Description Data Claribel rce(s) Supporting Document(s) magnesium level 1.8 mg/dL 1.8-2.4 Magnesium Level [facility] ([facility]) ID Date Data Source [id number] 03/30/2021 09:10:00 PM EDT [facility]) Name Value Range Interpretation Code Description Data Claribel rce(s) Supporting Document(s) glucose, fasting 178 mg/dL 70-100 Above high normal Glucose, Fas ting [place] ([facility]) blood urea nitrogen 11 mg/dL 7-18 Blood Urea Nitro gen [place] ([facility]) creatinine for GFR 1.10 mg/dL 0.55-1.30 Creatinine for GF R [place] ([facility]) glomerular filtration rate > 60.0 >60 Glomerula r Filtration Rate [place] ([facility]) sodium level 139 mEq/L 136-145 Sodium Level [place] ([facility]) potassium serum 3.8 mEq/L 3.5-5.1 Potassium Serum [facility] ([facility]) chloride level 115 mEq/L 98-107 Above high normal Chloride Level [place] ([facility]) carbon dioxide level 15 mEq/L 21-32 Below low normal Carbon Di oxide Level [facility] ([facility]) anion gap 9 mEq/L 8-16 Anion Gap [facility] ([facility]) calcium level 8.4 mg/dL 8.5-10.1 Below low normal Calcium Level AT [facility] ([facility]) ID Date Data Source [id number] 03/30/2021 09:10:00 PM EDT [place] ([facility]) Name Value Range Interpretation Code Description Data Claribel rce(s) Supporting Document(s) magnesium level 1.8 mg/dL 1.8-2.4 Magnesium Level [place] ([facility]) ID Date Data Source [id number] 03/30/2021 09:10:00 PM EDT [facility]) Name Value Range Interpretation Code Description Data Claribel rce(s) Supporting Document(s) glucose, fasting 178 mg/dL 70-100 Above high normal Glucose, Fas ting [place] ([facility]) blood urea nitrogen 11 mg/dL 7-18 Blood Urea Nitro gen [place] ([facility]) glomerular filtration rate > 60.0 >60 Glomerula r Filtration Rate [place] ([facility]) creatinine for GFR 1.10 mg/dL 0.55-1.30 Creatinine for GF R [place] ([facility]) sodium level 139 mEq/L 136-145 Sodium Level [facility] ([facility]) potassium serum 3.8 mEq/L 3.5-5.1 Potassium Serum ATHE NA ([facility]) chloride level 115 mEq/L 98-107 Above high normal Chloride Level [facility] ([facility]) carbon dioxide level 15 mEq/L 21-32 Below low normal Carbon Di oxide Level [facility] ([facility]) anion gap 9 mEq/L 8-16 Anion Gap [facility] ([facility]) calcium level 8.4 mg/dL 8.5-10.1 Below low normal Calcium Level AT [facility]) ID Date Data Source [id number] 03/30/2021 09:10:00 PM EDT [facility]) Name Value Range Interpretation Code Description Data Claribel rce(s) Supporting Document(s) magnesium level 1.8 mg/dL 1.8-2.4 Magnesium Level [facility] ([facility]) ID Date Data Source [id number] 03/30/2021 09:10:00 PM EDT [place] ([facility]) Name Value Range Interpretation Code Description Data Claribel rce(s) Supporting Document(s) glucose, fasting 178 mg/dL 70-100 Above high normal Glucose, Fas ting [place] ([facility]) blood urea nitrogen 11 mg/dL 7-18 Blood Urea Nitro gen [place] ([facility]) creatinine for GFR 1.10 mg/dL 0.55-1.30 Creatinine for GF R [place] ([facility]) glomerular filtration rate > 60.0 >60 Glomerula r Filtration Rate [facility] ([facility]) sodium level 139 mEq/L 136-145 Sodium Level [facility] ([facility]) potassium serum 3.8 mEq/L 3.5-5.1 Potassium Serum [facility] ([facility]) chloride level 115 mEq/L 98-107 Above high normal Chloride Level [place] ([facility]) carbon dioxide level 15 mEq/L 21-32 Below low normal Carbon Di oxide Level [facility] ([facility]) anion gap 9 mEq/L 8-16 Anion Gap [facility] ([facility]) calcium level 8.4 mg/dL 8.5-10.1 Below low normal Calcium Level AT [facility]) ID Date Data Source [id number] 03/30/2021 09:09:00 PM EDT [facility]) Name Value Range Interpretation Code Description Data Claribel rce(s) Supporting Document(s) bedside glucose 180 mg/dL 70-105 Above high normal Bedside Gluco se [facility]) ID Date Data Source [id number] 03/30/2021 09:09:00 PM EDT [facility]) Name Value Range Interpretation Code Description Data Claribel rce(s) Supporting Document(s) bedside glucose 180 mg/dL 70-105 Above high normal Bedside Gluco se [facility]) ID Date Data Source [id number] 03/30/2021 09:09:00 PM EDT [facility]) Name Value Range Interpretation Code Description Data Claribel rce(s) Supporting Document(s) bedside glucose 180 mg/dL 70-105 Above high normal Bedside Gluco se [facility]) ID Date Data Source [id number] 03/30/2021 08:09:00 PM EDT [facility]) Name Value Range Interpretation Code Description Data Claribel rce(s) Supporting Document(s) bedside glucose 171 mg/dL 70-105 Above high normal Bedside Gluco se [facility]) ID Date Data Source [id number] 03/30/2021 08:09:00 PM EDT [facility]) Name Value Range Interpretation Code Description Data Claribel rce(s) Supporting Document(s) bedside glucose 171 mg/dL 70-105 Above high normal Bedside Gluco se [facility]) ID Date Data Source [id number] 03/30/2021 08:09:00 PM EDT [facility]) Name Value Range Interpretation Code Description Data Claribel rce(s) Supporting Document(s) bedside glucose 171 mg/dL 70-105 Above high normal Bedside Gluco se [place] ([facility]) ID Date Data Source [id number] 03/30/2021 07:11:00 PM EDT [facility]) Name Value Range Interpretation Code Description Data Claribel rce(s) Supporting Document(s) bedside glucose 185 mg/dL 70-105 Above high normal Bedside Gluco se [facility]) ID Date Data Source [id number] 03/30/2021 07:11:00 PM EDT [facility]) Name Value Range Interpretation Code Description Data Claribel rce(s) Supporting Document(s) bedside glucose 185 mg/dL 70-105 Above high normal Bedside Gluco se [place] ([facility]) ID Date Data Source [id number] 03/30/2021 07:11:00 PM EDT [facility]) Name Value Range Interpretation Code Description Data Claribel rce(s) Supporting Document(s) bedside glucose 185 mg/dL 70-105 Above high normal Bedside Gluco se [place] ([facility]) ID Date Data Source [id number] 03/30/2021 06:15:00 PM EDT [facility]) Name Value Range Interpretation Code Description Data Claribel rce(s) Supporting Document(s) bedside glucose 198 mg/dL 70-105 Above high normal Bedside Gluco se [facility]) ID Date Data Source [id number] 03/30/2021 06:15:00 PM EDT [facility]) Name Value Range Interpretation Code Description Data Claribel rce(s) Supporting Document(s) bedside glucose 198 mg/dL 70-105 Above high normal Bedside Gluco se [place] ([facility]) ID Date Data Source [id number] 03/30/2021 06:15:00 PM EDT [facility]) Name Value Range Interpretation Code Description Data Claribel rce(s) Supporting Document(s) bedside glucose 198 mg/dL 70-105 Above high normal Bedside Gluco se [place] ([facility]) ID Date Data Source [id number] 03/30/2021 05:34:00 PM EDT [facility]) Name Value Range Interpretation Code Description Data Claribel rce(s) Supporting Document(s) bedside glucose 192 mg/dL 70-105 Above high normal Bedside Gluco se [facility]) ID Date Data Source [id number] 03/30/2021 05:34:00 PM EDT [facility]) Name Value Range Interpretation Code Description Data Claribel rce(s) Supporting Document(s) bedside glucose 192 mg/dL 70-105 Above high normal Bedside Gluco se [facility]) ID Date Data Source [id number] 03/30/2021 05:34:00 PM EDT [facility]) Name Value Range Interpretation Code Description Data Claribel rce(s) Supporting Document(s) bedside glucose 192 mg/dL 70-105 Above high normal Bedside Gluco se [facility]) ID Date Data Source [id number] 03/30/2021 05:32:00 PM EDT [facility]) Name Value Range Interpretation Code Description Data Claribel rce(s) Supporting Document(s) magnesium level 1.9 mg/dL 1.8-2.4 Magnesium Level AT[facility] NA ([facility]) ID Date Data Source [id number] 03/30/2021 05:32:00 PM EDT [place] ([facility]) Name Value Range Interpretation Code Description Data Claribel rce(s) Supporting Document(s) glucose, fasting 195 mg/dL 70-100 Above high normal Glucose, Fas ting [place] ([facility]) blood urea nitrogen 12 mg/dL 7-18 Blood Urea Nitro gen [place] ([facility]) creatinine for GFR 1.09 mg/dL 0.55-1.30 Creatinine for GF R [place] ([facility]) glomerular filtration rate > 60.0 >60 Glomerula r Filtration Rate [place] ([facility]) sodium level 141 mEq/L 136-145 Sodium Level [facility] ([facility]) potassium serum 3.9 mEq/L 3.5-5.1 Potassium Serum [facility] ([facility]) chloride level 115 mEq/L 98-107 Above high normal Chloride Level [place] ([facility]) carbon dioxide level 16 mEq/L 21-32 Below low normal Carbon Di oxide Level [place] ([facility]) anion gap 10 mEq/L 8-16 Anion Gap [facility] ([facility]) calcium level 8.2 mg/dL 8.5-10.1 Below low normal Calcium Level AT [facility] ([facility]) ID Date Data Source [id number] 03/30/2021 05:32:00 PM EDT [place] ([facility]) Name Value Range Interpretation Code Description Data Claribel rce(s) Supporting Document(s) magnesium level 1.9 mg/dL 1.8-2.4 Magnesium Level AT[facility] NA ([facility]) ID Date Data Source [id number] 03/30/2021 05:32:00 PM EDT [facility]) Name Value Range Interpretation Code Description Data Claribel rce(s) Supporting Document(s) glucose, fasting 195 mg/dL 70-100 Above high normal Glucose, Fas ting [place] ([facility]) blood urea nitrogen 12 mg/dL 7-18 Blood Urea Nitro gen [place] ([facility]) glomerular filtration rate > 60.0 >60 Glomerula r Filtration Rate [facility] ([facility]) creatinine for GFR 1.09 mg/dL 0.55-1.30 Creatinine for GF R [place] ([facility]) sodium level 141 mEq/L 136-145 Sodium Level [facility] ([facility]) potassium serum 3.9 mEq/L 3.5-5.1 Potassium Serum AT[facility] NA ([facility]) chloride level 115 mEq/L 98-107 Above high normal Chloride Level [place] ([facility]) carbon dioxide level 16 mEq/L 21-32 Below low normal Carbon Di oxide Level [place] ([facility]) anion gap 10 mEq/L 8-16 Anion Gap [facility] ([facility]) calcium level 8.2 mg/dL 8.5-10.1 Below low normal Calcium Level AT [place] ([facility]) ID Date Data Source [id number] 03/30/2021 05:32:00 PM EDT [place] ([facility]) Name Value Range Interpretation Code Description Data Claribel rce(s) Supporting Document(s) magnesium level 1.9 mg/dL 1.8-2.4 Magnesium Level [facility] ([facility]) ID Date Data Source [id number] 03/30/2021 05:32:00 PM EDT [place] ([facility]) Name Value Range Interpretation Code Description Data Claribel rce(s) Supporting Document(s) glucose, fasting 195 mg/dL 70-100 Above high normal Glucose, Fas ting [place] ([facility]) blood urea nitrogen 12 mg/dL 7-18 Blood Urea Nitro gen [place] ([facility]) creatinine for GFR 1.09 mg/dL 0.55-1.30 Creatinine for GF R [place] ([facility]) glomerular filtration rate > 60.0 >60 Glomerula r Filtration Rate [facility] ([facility]) sodium level 141 mEq/L 136-145 Sodium Level [facility] ([facility]) potassium serum 3.9 mEq/L 3.5-5.1 Potassium Serum AT[facility] NA ([facility]) chloride level 115 mEq/L 98-107 Above high normal Chloride Level [facility] ([facility]) carbon dioxide level 16 mEq/L 21-32 Below low normal Carbon Di oxide Level [facility] ([facility]) anion gap 10 mEq/L 8-16 Anion Gap [facility] ([facility]) calcium level 8.2 mg/dL 8.5-10.1 Below low normal Calcium Level AT [place] ([facility]) ID Date Data Source [id number] 03/30/2021 04:31:00 PM EDT [facility]) Name Value Range Interpretation Code Description Data Claribel rce(s) Supporting Document(s) bedside glucose 182 mg/dL 70-105 Above high normal Bedside Gluco se [facility]) ID Date Data Source [id number] 03/30/2021 04:31:00 PM EDT [facility]) Name Value Range Interpretation Code Description Data Claribel rce(s) Supporting Document(s) bedside glucose 182 mg/dL 70-105 Above high normal Bedside Gluco se [facility]) ID Date Data Source [id number] 03/30/2021 04:31:00 PM EDT [facility]) Name Value Range Interpretation Code Description Data Claribel rce(s) Supporting Document(s) bedside glucose 182 mg/dL 70-105 Above high normal Bedside Gluco se [facility]) ID Date Data Source [id number] 03/30/2021 03:07:00 PM EDT [facility]) Name Value Range Interpretation Code Description Data Claribel rce(s) Supporting Document(s) bedside glucose 207 mg/dL 70-105 Above high normal Bedside Gluco se [place] ([facility]) ID Date Data Source [id number] 03/30/2021 03:07:00 PM EDT [facility]) Name Value Range Interpretation Code Description Data Claribel rce(s) Supporting Document(s) bedside glucose 207 mg/dL 70-105 Above high normal Bedside Gluco se [place] ([facility]) ID Date Data Source [id number] 03/30/2021 03:07:00 PM EDT [facility]) Name Value Range Interpretation Code Description Data Claribel rce(s) Supporting Document(s) bedside glucose 207 mg/dL 70-105 Above high normal Bedside Gluco se [place] ([facility]) ID Date Data Source [id number] 03/30/2021 02:06:00 PM EDT [facility]) Name Value Range Interpretation Code Description Data Claribel rce(s) Supporting Document(s) bedside glucose 128 mg/dL 70-105 Above high normal Bedside Gluco se [place] ([facility]) ID Date Data Source [id number] 03/30/2021 02:06:00 PM EDT [facility]) Name Value Range Interpretation Code Description Data Claribel rce(s) Supporting Document(s) bedside glucose 128 mg/dL 70-105 Above high normal Bedside Gluco se [place] ([facility]) ID Date Data Source [id number] 03/30/2021 02:06:00 PM EDT [facility]) Name Value Range Interpretation Code Description Data Claribel rce(s) Supporting Document(s) bedside glucose 128 mg/dL 70-105 Above high normal Bedside Gluco se [facility]) ID Date Data Source [id number] 03/30/2021 01:05:00 PM EDT [facility]) Name Value Range Interpretation Code Description Data Claribel rce(s) Supporting Document(s) bedside glucose 138 mg/dL 70-105 Above high normal Bedside Gluco se [facility]) ID Date Data Source [id number] 03/30/2021 01:05:00 PM EDT [facility]) Name Value Range Interpretation Code Description Data Claribel rce(s) Supporting Document(s) bedside glucose 138 mg/dL 70-105 Above high normal Bedside Gluco se [facility]) ID Date Data Source [id number] 03/30/2021 01:05:00 PM EDT [facility]) Name Value Range Interpretation Code Description Data Claribel rce(s) Supporting Document(s) bedside glucose 138 mg/dL 70-105 Above high normal Bedside Gluco se [facility]) ID Date Data Source [id number] 03/30/2021 12:13:00 PM EDT [facility]) Name Value Range Interpretation Code Description Data Claribel rce(s) Supporting Document(s) osmolality serum 308 mOsm/kg 275-295 Above high normal Osmolality Serum [facility]) ID Date Data Source [id number] 03/30/2021 12:13:00 PM EDT [facility]) Name Value Range Interpretation Code Description Data Claribel rce(s) Supporting Document(s) phosphorus level 1.7 mg/dL 2.5-4.9 Below low normal Phosphorus Le karma [facility]) ID Date Data Source [id number] 03/30/2021 12:13:00 PM EDT [facility]) Name Value Range Interpretation Code Description Data Claribel rce(s) Supporting Document(s) glucose, fasting 118 mg/dL 70-100 Above high normal Glucose, Fas ting [place] ([facility]) blood urea nitrogen 16 mg/dL 7-18 Blood Urea Nitro gen [place] ([facility]) creatinine for GFR 1.18 mg/dL 0.55-1.30 Creatinine for GF R [place] ([facility]) glomerular filtration rate >60 Below low normal Mariza merular Filtration Rate [place] ([facility]) sodium level 144 mEq/L 136-145 Sodium Level [facility] ([facility]) potassium serum 4.4 mEq/L 3.5-5.1 Potassium Serum ATH NA [facility]) chloride level 117 mEq/L 98-107 Above high normal Chloride Level [place] ([facility]) carbon dioxide level 12 mEq/L 21-32 Below low normal Carbon Di oxide Level [place] ([facility]) anion gap 15 mEq/L 8-16 Anion Gap [place] ([facility]) calcium level 9.1 mg/dL 8.5-10.1 Calcium Level [place] ( [facility]) ID Date Data Source [id number] 03/30/2021 12:13:00 PM EDT [facility]) Name Value Range Interpretation Code Description Data Claribel rce(s) Supporting Document(s) venous pH 7.171 units 7.330-7.430 Below low normal Venous pH [facility]) venous partial pressure CO2 26.1 mmHg 38.0-50.0 Below low nor mal Venous Partial Pressure CO2 [facility]) venous partial pressure O2 64.5 mmHg 30.0-50.0 Above high nor mal Venous Partial Pressure O2 [facility]) venous total CO2 10.1 mEq/L 24.0-28.0 Below low normal Venous Total CO2 [facility]) venous HCO3 9.3 mEq/L 23.0-27.0 Below low normal Venous HCO3 [facility]) venous base excess -2.0-2.0 Below low normal Venous Base Excess [place] ([facility]) venous standard HCO3 11.3 mEq/L Venous Standard HCO3 [place] ([facility]) venous O2 saturation 90.9 % 60.0-80.0 Above high normal Venous O 2 Saturation [place] ([facility]) ID Date Data Source [id number] 03/30/2021 12:13:00 PM EDT [place] ([facility]) Name Value Range Interpretation Code Description Data Claribel rce(s) Supporting Document(s) osmolality serum 308 mOsm/kg 275-295 Above high normal Osmolality Serum [place] ([facility]) ID Date Data Source [id number] 03/30/2021 12:13:00 PM EDT [place] ([facility]) Name Value Range Interpretation Code Description Data Claribel rce(s) Supporting Document(s) phosphorus level 1.7 mg/dL 2.5-4.9 Below low normal Phosphorus Le karma [place] ([facility]) ID Date Data Source [id number] 03/30/2021 12:13:00 PM EDT [place] ([facility]) Name Value Range Interpretation Code Description Data Claribel rce(s) Supporting Document(s) glucose, fasting 118 mg/dL 70-100 Above high normal Glucose, Fas ting [place] ([facility]) blood urea nitrogen 16 mg/dL 7-18 Blood Urea Nitro gen [place] ([facility]) creatinine for GFR 1.18 mg/dL 0.55-1.30 Creatinine for GF R [place] ([facility]) glomerular filtration rate >60 Below low normal Mariza merular Filtration Rate [facility] ([facility]) sodium level 144 mEq/L 136-145 Sodium Level [facility] ([facility]) potassium serum 4.4 mEq/L 3.5-5.1 Potassium Serum ATHE NA ([facility]) chloride level 117 mEq/L 98-107 Above high normal Chloride Level [place] ([facility]) carbon dioxide level 12 mEq/L 21-32 Below low normal Carbon Di oxide Level [facility] ([facility]) anion gap 15 mEq/L 8-16 Anion Gap [facility] ([facility]) calcium level 9.1 mg/dL 8.5-10.1 Calcium Level [place] ( [facility]) ID Date Data Source [id number] 03/30/2021 12:13:00 PM EDT [place] ([facility]) Name Value Range Interpretation Code Description Data Claribel rce(s) Supporting Document(s) venous pH 7.171 units 7.330-7.430 Below low normal Venous pH [facility] ([facility]) venous partial pressure CO2 26.1 mmHg 38.0-50.0 Below low nor mal Venous Partial Pressure CO2 [place] ([facility]) venous partial pressure O2 64.5 mmHg 30.0-50.0 Above high nor mal Venous Partial Pressure O2 [place] ([facility]) venous total CO2 10.1 mEq/L 24.0-28.0 Below low normal Venous Total CO2 [place] ([facility]) venous HCO3 9.3 mEq/L 23.0-27.0 Below low normal Venous HCO3 [place] ([facility]) venous base excess -2.0-2.0 Below low normal Venous Base Excess [place] ([facility]) venous standard HCO3 11.3 mEq/L Venous Standard HCO3 [place] ([facility]) venous O2 saturation 90.9 % 60.0-80.0 Above high normal Venous O 2 Saturation [place] ([facility]) ID Date Data Source [id number] 03/30/2021 12:13:00 PM EDT [place] ([facility]) Name Value Range Interpretation Code Description Data Claribel rce(s) Supporting Document(s) osmolality serum 308 mOsm/kg 275-295 Above high normal Osmolality Serum [facility]) ID Date Data Source [id number] 03/30/2021 12:13:00 [facility] Name Value Range Interpretation Code Description Data Claribel rce(s) Supporting Document(s) phosphorus level 1.7 mg/dL 2.5-4.9 Below low normal Phosphorus Le karma [place] ([facility]) ID Date Data Source [id number] 03/30/2021 12:13:00 PM EDT [place] ([facility]) Name Value Range Interpretation Code Description Data Claribel rce(s) Supporting Document(s) glucose, fasting 118 mg/dL 70-100 Above high normal Glucose, Fas ting [place] ([facility]) blood urea nitrogen 16 mg/dL 7-18 Blood Urea Nitro gen [place] ([facility]) creatinine for GFR 1.18 mg/dL 0.55-1.30 Creatinine for GF R [place] ([facility]) glomerular filtration rate >60 Below low normal Mariza merular Filtration Rate [place] ([facility]) sodium level 144 mEq/L 136-145 Sodium Level [place] ([facility]) potassium serum 4.4 mEq/L 3.5-5.1 Potassium Serum ATH NA ([facility]) chloride level 117 mEq/L 98-107 Above high normal Chloride Level [place] ([facility]) carbon dioxide level 12 mEq/L 21-32 Below low normal Carbon Di oxide Level [place] ([facility] [facility]) anion gap 15 mEq/L 8-16 Anion Gap [place] ([facility]) calcium level 9.1 mg/dL 8.5-10.1 Calcium Level [place] ( [facility]) ID Date Data Source [id number] 03/30/2021 12:13:00 PM EDT [place] ([facility]) Name Value Range Interpretation Code Description Data Claribel rce(s) Supporting Document(s) venous pH 7.171 units 7.330-7.430 Below low normal Venous pH [place] ([facility]) venous partial pressure CO2 26.1 mmHg 38.0-50.0 Below low nor mal Venous Partial Pressure CO2 [place] ([facility]) venous partial pressure O2 64.5 mmHg 30.0-50.0 Above high nor mal Venous Partial Pressure O2 [place] ([facility]) venous total CO2 10.1 mEq/L 24.0-28.0 Below low normal Venous Total CO2 [place] ([facility]) venous HCO3 9.3 mEq/L 23.0-27.0 Below low normal Venous HCO3 [place] ([facility]) venous base excess -2.0-2.0 Below low normal Venous Base Excess [place] ([facility]) venous standard HCO3 11.3 mEq/L Venous Standard HCO3 [place] ([facility]) venous O2 saturation 90.9 % 60.0-80.0 Above high normal Venous O 2 Saturation [place] ([facility]) ID Date Data Source [id number] 03/30/2021 12:12:00 PM EDT [facility]) Name Value Range Interpretation Code Description Data Claribel rce(s) Supporting Document(s) bedside glucose 123 mg/dL 70-105 Above high normal Bedside Gluco se [facility]) ID Date Data Source [id number] 03/30/2021 12:12:00 PM EDT [facility]) Name Value Range Interpretation Code Description Data Claribel rce(s) Supporting Document(s) bedside glucose 123 mg/dL 70-105 Above high normal Bedside Gluco se [facility]) ID Date Data Source [id number] 03/30/2021 12:12:00 PM EDT [facility]) Name Value Range Interpretation Code Description Data Claribel rce(s) Supporting Document(s) bedside glucose 123 mg/dL 70-105 Above high normal Bedside Gluco se [facility]) ID Date Data Source [id number] 03/30/2021 11:00:00 AM EDT [facility]) Name Value Range Interpretation Code Description Data Claribel rce(s) Supporting Document(s) bedside glucose 113 mg/dL 70-105 Above high normal Bedside Gluco se [place] ([facility]) ID Date Data Source [id number] 03/30/2021 11:00:00 AM EDT [facility]) Name Value Range Interpretation Code Description Data Claribel rce(s) Supporting Document(s) bedside glucose 113 mg/dL 70-105 Above high normal Bedside Gluco se [place] ([facility]) ID Date Data Source [id number] 03/30/2021 11:00:00 AM EDT [facility]) Name Value Range Interpretation Code Description Data Claribel rce(s) Supporting Document(s) bedside glucose 113 mg/dL 70-105 Above high normal Bedside Gluco se [place] ([facility]) ID Date Data Source [id number] 03/30/2021 09:57:00 AM EDT [facility]) Name Value Range Interpretation Code Description Data Claribel rce(s) Supporting Document(s) bedside glucose 161 mg/dL 70-105 Above high normal Bedside Gluco se [facility]) ID Date Data Source [id number] 03/30/2021 09:57:00 AM EDT [facility]) Name Value Range Interpretation Code Description Data Claribel rce(s) Supporting Document(s) bedside glucose 161 mg/dL 70-105 Above high normal Bedside Gluco se [place] ([facility]) ID Date Data Source [id number] 03/30/2021 09:57:00 AM EDT [facility]) Name Value Range Interpretation Code Description Data Claribel rce(s) Supporting Document(s) bedside glucose 161 mg/dL 70-105 Above high normal Bedside Gluco se [facility]) ID Date Data Source [id number] 03/30/2021 08:57:00 AM EDT [place] ([facility]) Name Value Range Interpretation Code Description Data Claribel rce(s) Supporting Document(s) bedside glucose 206 mg/dL 70-105 Above high normal Bedside Gluco se [place] ([facility]) ID Date Data Source [id number] 03/30/2021 08:57:00 AM EDT [place] ([facility]) Name Value Range Interpretation Code Description Data Claribel rce(s) Supporting Document(s) bedside glucose 206 mg/dL 70-105 Above high normal Bedside Gluco se [facility]) ID Date Data Source [id number] 03/30/2021 08:57:00 AM EDT [facility]) Name Value Range Interpretation Code Description Data Claribel rce(s) Supporting Document(s) bedside glucose 206 mg/dL 70-105 Above high normal Bedside Gluco se [place] ([facility]) ID Date Data Source [id number] 03/30/2021 08:36:00 [facility] Name Value Range Interpretation Code Description Data Claribel rce(s) Supporting Document(s) osmolality serum 317 mOsm/kg 275-295 Above high normal Osmolality Serum [facility]) ID Date Data Source [id number] 03/30/2021 08:36:00 AM EDT [facility]) Name Value Range Interpretation Code Description Data Claribel rce(s) Supporting Document(s) magnesium level 2.0 mg/dL 1.8-2.4 [facility] Date Data Source [id number] 03/30/2021 08:36:00 AM [facility] Name Value Range Interpretation Code Description Data Claribel rce(s) Supporting Document(s) phosphorus level 1.4 mg/dL 2.5-4.9 Below low normal Phosphorus Le karma [place] ([facility]) ID Date Data Source [id number] 03/30/2021 08:36:00 AM EDT [place] ([facility]) Name Value Range Interpretation Code Description Data Claribel rce(s) Supporting Document(s) glucose, fasting 237 mg/dL 70-100 Above high normal Glucose, Fas ting [place] ([facility]) blood urea nitrogen 17 mg/dL 7-18 Blood Urea Nitro gen [place] ([facility]) creatinine for GFR 1.43 mg/dL 0.55-1.30 Above high normal Creatinine for GFR [place] ([facility]) glomerular filtration rate >60 Below low normal Mariza merular Filtration Rate [place] ([facility]) sodium level 143 mEq/L 136-145 Sodium Level [place] ([facility]) potassium serum 4.0 mEq/L 3.5-5.1 Potassium Serum [place] ([facility]) chloride level 115 mEq/L 98-107 Above high normal Chloride Level [place] ([facility]) carbon dioxide level 11 mEq/L 21-32 Below low normal Carbon Di oxide Level [place] ([facility]) anion gap 17 mEq/L 8-16 Above high normal Anion Gap [place] ([facility]) calcium level 9.2 mg/dL 8.5-10.1 Calcium Level [place] ( [facility]) ID Date Data Source [id number] 03/30/2021 08:36:00 AM EDT [place] ([facility]) Name Value Range Interpretation Code Description Data Claribel rce(s) Supporting Document(s) osmolality serum 317 mOsm/kg 275-295 Above high normal Osmolality Serum [facility]) ID Date Data Source [id number] 03/30/2021 08:36:00 AM [facility] Name Value Range Interpretation Code Description Data Claribel rce(s) Supporting Document(s) magnesium level 2.0 mg/dL 1.8-2.4 Magnesium Level [place] ([facility]) ID Date Data Source [id number] 03/30/2021 08:36:00 AM EDT [place] ([facility]) Name Value Range Interpretation Code Description Data Claribel rce(s) Supporting Document(s) phosphorus level 1.4 mg/dL 2.5-4.9 Below low normal Phosphorus Le kamra [place] ([facility]) ID Date Data Source [id number] 03/30/2021 08:36:00 AM EDT [place] ([facility]) Name Value Range Interpretation Code Description Data Claribel rce(s) Supporting Document(s) glucose, fasting 237 mg/dL 70-100 Above high normal Glucose, Fas ting [place] ([facility]) blood urea nitrogen 17 mg/dL 7-18 Blood Urea Nitro gen [place] ([facility]) creatinine for GFR 1.43 mg/dL 0.55-1.30 Above high normal Creatinine for GFR [place] ([facility]) glomerular filtration rate >60 Below low normal Mariza merular Filtration Rate [place] ([facility]) sodium level 143 mEq/L 136-145 Sodium Level [place] ([facility]) potassium serum 4.0 mEq/L 3.5-5.1 Potassium Serum [place] ([facility]) chloride level 115 mEq/L 98-107 Above high normal Chloride Level [place] ([facility]) carbon dioxide level 11 mEq/L 21-32 Below low normal Carbon Di oxide Level [place] ([facility]) anion gap 17 mEq/L 8-16 Above high normal Anion Gap [place] ([facility]) calcium level 9.2 mg/dL 8.5-10.1 Calcium Level [place] ( [facility]) ID Date Data Source [id number] 03/30/2021 08:36:00 AM EDT [place] ([facility]) Name Value Range Interpretation Code Description Data Claribel rce(s) Supporting Document(s) osmolality serum 317 mOsm/kg 275-295 Above high normal Osmolality Serum [place] ([facility]) ID Date Data Source [id number] 03/30/2021 08:36:00 AM EDT [place] ([facility]) Name Value Range Interpretation Code Description Data Claribel rce(s) Supporting Document(s) magnesium level 2.0 mg/dL 1.8-2.4 Magnesium Level [place] ([facility]) ID Date Data Source [id number] 03/30/2021 08:36:00 AM EDT [facility]) Name Value Range Interpretation Code Description Data Claribel rce(s) Supporting Document(s) phosphorus level 1.4 mg/dL 2.5-4.9 Below low normal Phosphorus Le karma [place] ([facility]) ID Date Data Source [id number] 03/30/2021 08:36:00 AM EDT [place] ([facility]) Name Value Range Interpretation Code Description Data Claribel rce(s) Supporting Document(s) glucose, fasting 237 mg/dL 70-100 Above high normal Glucose, Fas ting [place] ([facility]) blood urea nitrogen 17 mg/dL 7-18 Blood Urea Nitro gen [place] ([facility]) creatinine for GFR 1.43 mg/dL 0.55-1.30 Above high normal Creatinine for GFR [place] ([facility]) glomerular filtration rate >60 Below low normal Mariza merular Filtration Rate [place] ([facility]) sodium level 143 mEq/L 136-145 Sodium Level [place] ([facility]) potassium serum 4.0 mEq/L 3.5-5.1 Potassium Serum [place] ([facility]) chloride level 115 mEq/L 98-107 Above high normal Chloride Level [place] ([facility]) carbon dioxide level 11 mEq/L 21-32 Below low normal Carbon Di oxide Level [place] ([facility]) anion gap 17 mEq/L 8-16 Above high normal Anion Gap [place] ([facility]) calcium level 9.2 mg/dL 8.5-10.1 Calcium Level [place] ( [facility]) ID Date Data Source [id number] 03/30/2021 07:48:00 AM EDT [place] ([facility]) Name Value Range Interpretation Code Description Data Claribel rce(s) Supporting Document(s) bedside glucose 327 mg/dL 70-105 Above high normal Bedside Gluco se [place] ([facility]) ID Date Data Source [id number] 03/30/2021 07:48:00 AM EDT [facility]) Name Value Range Interpretation Code Description Data Claribel rce(s) Supporting Document(s) bedside glucose 327 mg/dL 70-105 Above high normal Bedside Gluco se [facility]) ID Date Data Source [id number] 03/30/2021 07:48:00 AM EDT [facility]) Name Value Range Interpretation Code Description Data Claribel rce(s) Supporting Document(s) bedside glucose 327 mg/dL 70-105 Above high normal Bedside Gluco se [facility]) ID Date Data Source [id number] 03/30/2021 06:39:00 AM EDT [facility]) Name Value Range Interpretation Code Description Data Claribel rce(s) Supporting Document(s) bedside glucose 373 mg/dL 70-105 Above high normal Bedside Gluco se [facility]) ID Date Data Source [id number] 03/30/2021 06:39:00 AM EDT [facility]) Name Value Range Interpretation Code Description Data Claribel rce(s) Supporting Document(s) bedside glucose 373 mg/dL 70-105 Above high normal Bedside Gluco se [place] ([facility]) ID Date Data Source [id number] 03/30/2021 06:39:00 AM EDT [facility]) Name Value Range Interpretation Code Description Data Claribel rce(s) Supporting Document(s) bedside glucose 373 mg/dL 70-105 Above high normal Bedside Gluco se [place] ([facility]) ID Date Data Source [id number] 03/30/2021 05:00:00 AM EDT [facility]) Name Value Range Interpretation Code Description Data Claribel rce(s) Supporting Document(s) bedside glucose 344 mg/dL 70-105 Above high normal Bedside Gluco se [facility]) ID Date Data Source [id number] 03/30/2021 05:00:00 AM EDT [facility]) Name Value Range Interpretation Code Description Data Claribel rce(s) Supporting Document(s) bedside glucose 344 mg/dL 70-105 Above high normal Bedside Gluco se [place] ([facility]) ID Date Data Source [id number] 03/30/2021 05:00:00 AM EDT [facility]) Name Value Range Interpretation Code Description Data Claribel rce(s) Supporting Document(s) bedside glucose 344 mg/dL 70-105 Above high normal Bedside Gluco se [facility]) ID Date Data Source [id number] 03/30/2021 03:53:00 AM EDT [facility]) Name Value Range Interpretation Code Description Data Claribel rce(s) Supporting Document(s) osmolality serum 322 mOsm/kg 275-295 Above high normal Osmolality Serum [facility]) ID Date Data Source [id number] 03/30/2021 03:53:00 AM EDT [place] ([facility]) Name Value Range Interpretation Code Description Data Claribel rce(s) Supporting Document(s) osmolality serum 322 mOsm/kg 275-295 Above high normal Osmolality Serum [place] ([facility]) ID Date Data Source [id number] 03/30/2021 03:53:00 AM EDT [place] ([facility]) Name Value Range Interpretation Code Description Data Claribel rce(s) Supporting Document(s) lipase 63 U/L 73-393 Below low normal Lipase [place] ( [facility]) ID Date Data Source [id number] 03/30/2021 03:53:00 AM EDT [place] ([facility]) Name Value Range Interpretation Code Description Data Claribel rce(s) Supporting Document(s) phosphorus level 2.9 mg/dL 2.5-4.9 Phosphorus Level AT [facility]) ID Date Data Source [id number] 03/30/2021 03:53:00 AM EDT [facility]) Name Value Range Interpretation Code Description Data Claribel rce(s) Supporting Document(s) glucose, fasting 332 mg/dL 70-100 Above high normal Glucose, Fas ting [place] ([facility]) blood urea nitrogen 18 mg/dL 7-18 Blood Urea Nitro gen [place] ([facility]) creatinine for GFR 1.19 mg/dL 0.55-1.30 Creatinine for GF R [place] ([facility]) glomerular filtration rate >60 Below low normal Mariza merular Filtration Rate [place] ([facility]) sodium level 140 mEq/L 136-145 Sodium Level [place] ([facility]) potassium serum 4.5 mEq/L 3.5-5.1 Potassium Serum [place] ([facility]) chloride level 112 mEq/L 98-107 Above high normal Chloride Level [place] ([facility]) carbon dioxide level 8 mEq/L 21-32 Below low normal Carbon Di oxide Level [place] ([facility]) anion gap 20 mEq/L 8-16 Above high normal Anion Gap [place] ([facility]) calcium level 8.3 mg/dL 8.5-10.1 Below low normal Calcium Level AT [facility]) ID Date Data Source [id number] 03/30/2021 03:53:00 AM EDT [facility]) Name Value Range Interpretation Code Description Data Claribel rce(s) Supporting Document(s) Hemoglobin A1c/Hemoglobin.total in Blood 11.3 % Hemoglobin a1C [place] ([facility]) estimated average glucose 278 mg/dL 60-110 Above high norm al Estimated Average Glucose [facility]) ID Date Data Source [id number] 03/30/2021 03:53:00 AM EDT [facility]) Name Value Range Interpretation Code Description Data Claribel rce(s) Supporting Document(s) venous pH 7.174 units 7.330-7.430 Below low normal Venous pH [place] ([facility]) venous partial pressure CO2 19.8 mmHg 38.0-50.0 Below low nor mal Venous Partial Pressure CO2 [place] ([facility]) venous partial pressure O2 139.4 mmHg 30.0-50.0 Above high nor mal Venous Partial Pressure O2 [place] ([facility]) venous total CO2 7.7 mEq/L 24.0-28.0 Below low normal Venous Total CO2 [place] ([facility]) venous HCO3 7.1 mEq/L 23.0-27.0 Below low normal Venous HCO3 [place] ([facility]) venous base excess -2.0-2.0 Below low normal Venous Base Excess [place] ([facility]) venous standard HCO3 10.4 mEq/L Venous Standard HCO3 [place] ([facility]) venous O2 saturation 98.8 % 60.0-80.0 Above high normal Venous O 2 Saturation [place] ([facility]) venous site unknown Venous Site [place] ([facility]) ID Date Data Source [id number] 03/30/2021 03:53:00 AM EDT [place] ([facility]) Name Value Range Interpretation Code Description Data Claribel rce(s) Supporting Document(s) osmolality serum 322 mOsm/kg 275-295 Above high normal Osmolality Serum [place] ([facility]) ID Date Data Source [id number] 03/30/2021 03:53:00 AM EDT [place] ([facility]) Name Value Range Interpretation Code Description Data Claribel rce(s) Supporting Document(s) lipase 63 U/L 73-393 Below low normal Lipase [place] ( [facility]) ID Date Data Source [id number] 03/30/2021 03:53:00 AM EDT [place] ([facility]) Name Value Range Interpretation Code Description Data Claribel rce(s) Supporting Document(s) phosphorus level 2.9 mg/dL 2.5-4.9 Phosphorus Level AT [place] ([facility]) ID Date Data Source [id number] 03/30/2021 03:53:00 AM EDT [place] ([facility]) Name Value Range Interpretation Code Description Data Claribel rce(s) Supporting Document(s) glucose, fasting 332 mg/dL 70-100 Above high normal Glucose, Fas ting [place] ([facility]) blood urea nitrogen 18 mg/dL 7-18 Blood Urea Nitro gen [place] ([facility]) creatinine for GFR 1.19 mg/dL 0.55-1.30 Creatinine for GF R [place] ([facility]) glomerular filtration rate >60 Below low normal Mariza merular Filtration Rate [place] ([facility]) sodium level 140 mEq/L 136-145 Sodium Level [place] ([facility]) potassium serum 4.5 mEq/L 3.5-5.1 Potassium Serum [place] [place] ([facility]) chloride level 112 mEq/L 98-107 Above high normal Chloride Level [place] ([facility]) carbon dioxide level 8 mEq/L 21-32 Below low normal Carbon Di oxide Level [place] ([facility]) anion gap 20 mEq/L 8-16 Above high normal Anion Gap [place] ([facility]) calcium level 8.3 mg/dL 8.5-10.1 Below low normal Calcium Level AT [facility]) ID Date Data Source [id number] 03/30/2021 03:53:00 AM EDT [place] ([facility]) Name Value Range Interpretation Code Description Data Claribel rce(s) Supporting Document(s) Hemoglobin A1c/Hemoglobin.total in Blood 11.3 % Hemoglobin a1C [place] ([facility]) estimated average glucose 278 mg/dL 60-110 Above high norm al Estimated Average Glucose [facility]) ID Date Data Source [id number] 03/30/2021 03:53:00 AM EDT [place] ([facility]) Name Value Range Interpretation Code Description Data Claribel rce(s) Supporting Document(s) venous pH 7.174 units 7.330-7.430 Below low normal Venous pH [place] ([facility]) venous partial pressure CO2 19.8 mmHg 38.0-50.0 Below low nor mal Venous Partial Pressure CO2 [place] ([facility]) venous partial pressure O2 139.4 mmHg 30.0-50.0 Above high nor mal Venous Partial Pressure O2 [place] ([facility]) venous total CO2 7.7 mEq/L 24.0-28.0 Below low normal Venous Total CO2 [place] ([facility]) venous HCO3 7.1 mEq/L 23.0-27.0 Below low normal Venous HCO3 [place] ([facility]) venous base excess -2.0-2.0 Below low normal Venous Base Excess [place] ([facility]) venous standard HCO3 10.4 mEq/L Venous Standard HCO3 [place] ([facility]) venous O2 saturation 98.8 % 60.0-80.0 Above high normal Venous O 2 Saturation [place] ([facility]) venous site unknown Venous Site [place] ([facility]) ID Date Data Source [id number] 03/30/2021 03:53:00 AM EDT [place] ([facility]) Name Value Range Interpretation Code Description Data Claribel rce(s) Supporting Document(s) lipase 63 U/L 73-393 Below low normal Lipase [place] ( [facility]) ID Date Data Source [id number] 03/30/2021 03:53:00 AM EDT [place] ([facility]) Name Value Range Interpretation Code Description Data Claribel rce(s) Supporting Document(s) phosphorus level 2.9 mg/dL 2.5-4.9 Phosphorus Level AT [facility] ([facility]) ID Date Data Source [id number] 03/30/2021 03:53:00 AM EDT [place] ([facility]) Name Value Range Interpretation Code Description Data Claribel rce(s) Supporting Document(s) glucose, fasting 332 mg/dL 70-100 Above high normal Glucose, Fas ting [place] ([facility]) blood urea nitrogen 18 mg/dL 7-18 Blood Urea Nitro gen [place] ([facility]) creatinine for GFR 1.19 mg/dL 0.55-1.30 Creatinine for GF R [place] ([facility]) glomerular filtration rate >60 Below low normal Mariza merular Filtration Rate [place] ([facility]) sodium level 140 mEq/L 136-145 Sodium Level [place] ([facility]) potassium serum 4.5 mEq/L 3.5-5.1 Potassium Serum ATH NA ([facility]) chloride level 112 mEq/L 98-107 Above high normal Chloride Level [place] ([facility]) carbon dioxide level 8 mEq/L 21-32 Below low normal Carbon Di oxide Level [place] ([facility]) anion gap 20 mEq/L 8-16 Above high normal Anion Gap [place] ([facility]) calcium level 8.3 mg/dL 8.5-10.1 Below low normal [facility] Date Data Source [id number] 03/30/2021 03:53:00 AM EDT [facility]) Name Value Range Interpretation Code Description Data Claribel rce(s) Supporting Document(s) Hemoglobin A1c/Hemoglobin.total in Blood 11.3 % Hemoglobin a1C [place] ([facility]) estimated average glucose 278 mg/dL 60-110 Above high norm al Estimated Average Glucose [facility]) ID Date Data Source [id number] 03/30/2021 03:53:00 AM EDT [facility]) Name Value Range Interpretation Code Description Data Claribel rce(s) Supporting Document(s) venous pH 7.174 units 7.330-7.430 Below low normal Venous pH [place] ([facility]) venous partial pressure CO2 19.8 mmHg 38.0-50.0 Below low nor mal Venous Partial Pressure CO2 [place] ([facility]) venous partial pressure O2 139.4 mmHg 30.0-50.0 Above high nor mal Venous Partial Pressure O2 [place] ([facility]) venous total CO2 7.7 mEq/L 24.0-28.0 Below low normal Venous Total CO2 [place] ([facility]) venous HCO3 7.1 mEq/L 23.0-27.0 Below low normal Venous HCO3 [place] ([facility]) venous base excess -2.0-2.0 Below low normal Venous Base Excess [place] ([facility]) venous standard HCO3 10.4 mEq/L Venous Standard HCO3 [place] ([facility]) venous O2 saturation 98.8 % 60.0-80.0 Above high normal Venous O 2 Saturation [place] ([facility]) venous site unknown Venous Site [place] ([facility]) ID Date Data Source [id number] 03/30/2021 03:18:00 AM EDT [facility]) Name Value Range Interpretation Code Description Data Claribel rce(s) Supporting Document(s) bedside glucose 292 mg/dL 70-105 Above high normal Bedside Gluco se [place] ([facility]) ID Date Data Source [id number] 03/30/2021 03:18:00 AM EDT [facility]) Name Value Range Interpretation Code Description Data Claribel rce(s) Supporting Document(s) bedside glucose 292 mg/dL 70-105 Above high normal Bedside Gluco se [place] ([facility]) ID Date Data Source [id number] 03/30/2021 03:18:00 AM EDT [facility]) Name Value Range Interpretation Code Description Data Claribel rce(s) Supporting Document(s) bedside glucose 292 mg/dL 70-105 Above high normal Bedside Gluco se [place] ([facility]) ID Date Data Source [id number] 03/30/2021 12:18:00 AM EDT [facility]) Name Value Range Interpretation Code Description Data Claribel rce(s) Supporting Document(s) istat B-HCG < 5.0 Istat B-HCG [place] ([facility]) ID Date Data Source [id number] 03/30/2021 12:18:00 AM EDT [facility]) Name Value Range Interpretation Code Description Data Claribel rce(s) Supporting Document(s) istat B-HCG < 5.0 Istat B-HCG [place] ([facility]) ID Date Data Source [id number] 03/30/2021 12:18:00 AM EDT [facility]) Name Value Range Interpretation Code Description Data Claribel rce(s) Supporting Document(s) istat B-HCG < 5.0 Istat B-HCG [place] ([facility]) ID Date Data Source [id number] 03/30/2021 12:15:00 AM EDT [facility]) Name Value Range Interpretation Code Description Data Claribel rce(s) Supporting Document(s) istat HCT 41.0 % 38.0-51.0 Istat HCT [place] ([facility]) istat glucose 317 mg/dL 70-105 Above high normal Istat Glucose A [facility] ([facility]) istat sodium 137 mEq/L 136-145 Istat Sodium [place] ([facility]) istat potassium 5.1 mEq/L 3.5-5.1 Istat Potassium [place] ([facility]) istat Ca++ 5.3 mg/dL 4.5-5.3 Istat Ca++ [place] ([facility]) istat chloride 112 mEq/L 98-109 Above high normal Istat Chloride [place] ([facility]) istat CO2 12.0 mm/L 23.0-27.0 Below low normal Istat CO2 [place] ( [facility]) istat BUN 27 mg/dL 8-26 Above high normal Istat BUN [place] ([facility]) istat creatinine 1.0 mg/dL 0.6-1.3 Istat Creatinine AT [place] [facility]) ID Date Data Source [id number] 03/30/2021 12:15:00 AM EDT [place] ([facility]) Name Value Range Interpretation Code Description Data Claribel rce(s) Supporting Document(s) istat HCT 41.0 % 38.0-51.0 Istat HCT [place] ([facility]) istat glucose 317 mg/dL 70-105 Above high normal Istat Glucose A [facility] ([facility]) istat sodium 137 mEq/L 136-145 Istat Sodium [place] ([facility]) istat potassium 5.1 mEq/L 3.5-5.1 Istat Potassium ATHE NA ([facility]) istat Ca++ 5.3 mg/dL 4.5-5.3 Istat Ca++ [place] ([facility]) istat chloride 112 mEq/L 98-109 Above high normal Istat Chloride [place] ([facility]) istat CO2 12.0 mm/L 23.0-27.0 Below low normal Istat CO2 [place] ( [facility]) istat BUN 27 mg/dL 8-26 Above high normal Istat BUN [place] ([facility]) istat creatinine 1.0 mg/dL 0.6-1.3 Istat Creatinine AT [facility]) ID Date Data Source [id number] 03/30/2021 12:15:00 AM EDT [place] ([facility]) Name Value Range Interpretation Code Description Data Claribel rce(s) Supporting Document(s) istat HCT 41.0 % 38.0-51.0 Istat HCT [place] ([facility]) istat glucose 317 mg/dL 70-105 Above high normal Istat Glucose A [place] ([facility]) istat sodium 137 mEq/L 136-145 Istat Sodium [place] ([facility]) istat potassium 5.1 mEq/L 3.5-5.1 Istat Potassium ATHE NA ([facility]) istat Ca++ 5.3 mg/dL 4.5-5.3 Istat Ca++ [place] ([facility]) istat chloride 112 mEq/L 98-109 Above high normal Istat Chloride [place] ([facility]) istat CO2 12.0 mm/L 23.0-27.0 Below low normal Istat CO2 [place] ( [facility]) istat BUN 27 mg/dL 8-26 Above high normal Istat BUN [place] ([facility]) istat creatinine 1.0 mg/dL 0.6-1.3 Istat Creatinine AT [facility] ([facility]) ID Date Data Source [id number] 03/29/2021 11:54:00 PM EDT [place] ([facility]) Name Value Range Interpretation Code Description Data Claribel rce(s) Supporting Document(s) appearance, urine rfx clear clear Appearance, Ur ine Rfx [place] ([facility]) color, urine rfx yellow yellow Color, Urine Rfx AT [facility] ([facility]) pH,urine rfx 6.0 units 5.0-9.0 pH,urine Rfx [place] ([facility]) specific gravity ur auto rfx 1.002-1.035 Specif ic [place] Ur Auto Rfx [place] ([facility]) protein, urine auto rfx 3+ negative Above high normal Prote in, Urine Auto Rfx [place] ([facility]) glucose, urine (UA) auto rfx 3+ negative Above high n ormal Glucose, Urine (UA) Auto Rfx [place] ([facility]) ketone, urine auto rfx 2+ negative Above high normal Ketone , Urine Auto Rfx [place] ([facility]) urobilinogen, urine auto rfx 0.2 mg/dL 0.0-2.0 Urobili nogen, Urine Auto Rfx [place] ([facility]) bilirubin, urine auto rfx negative negative Bilirubin, Urine Auto Rfx [place] ([facility]) nitrite, urine auto rfx negative negative Nitrite, Uri ne Auto Rfx [place] ([facility]) leukocyte esterase ur auto rfx negative negative Leukocyte Esterase Ur Auto Rfx [place] ([facility]) blood, urine blood rfx 1+ negative Above high normal Blood, Urine Blood Rfx [place] ([facility]) WBC, urine auto rfx 1 /hpf 0-3 WBC, Urine Auto Rfx [place] ([facility]) RBC, urine auto rfx 3 /hpf 0-3 RBC, Urine Auto Rfx [place] ([facility]) bacteria, urine auto rfx negative negative Bacteria, U rine Auto Rfx [place] ([facility]) squam epithelial cell ur aurfx 0 /hpf 0-6 Squam Epithelial Cell Ur Aurfx [place] ([facility]) mucus, urine rfx small negative Mucus, Urine Rfx AT [place] ([facility]) hyaline cast, urine auto rfx 8 /lpf 0-1 Hyaline Cast, Urine Auto Rfx [place] ([facility]) ID Date Data Source [id number] 03/29/2021 11:54:00 PM EDT [place] ([facility]) Name Value Range Interpretation Code Description Data Claribel rce(s) Supporting Document(s) acetone/ketone > 46.00 <2.81 Above high normal Acetone/ketone [place] ([facility]) ID Date Data Source [id number] 03/29/2021 11:54:00 PM EDT [place] ([facility]) Name Value Range Interpretation Code Description Data Claribel rce(s) Supporting Document(s) white blood count 5.8 10 4.0-10.0 White Blood Count [place] ([facility]) red blood count 4.70 10 4.00-5.40 Red Blood Count [facility]) hemoglobin 13.8 g/dL 12.0-15.5 Hemoglobin [place] ([facility]) hematocrit 42.5 % 36.0-47.0 Hematocrit [place] ([facility]) mean corpuscular volume 90.4 fL 80.0-96.0 Mean Corpusc ular Volume [place] ([facility]) mean corpuscular hemoglobin 29.4 pg 27.0-33.0 Mean Cor puscular Hemoglobin [place] ([facility]) mean corpuscular HGB conc 32.5 g/dL 32.0-36.5 Mean Corpu scular HGB Conc [place] ([facility]) red cell distribution width 12.0 % 11.5-14.5 Red Cell Distribution Width [place] ([facility]) platelet count, automated 295 10 150-450 Platelet C ount, Automated [place] ([facility]) neutrophils % 80.7 % 36.0-66.0 Above high normal Neutrophils % A [place] ([facility]) lymph % 14.0 % 24.0-44.0 Below low normal Lymph % [place] ( [facility]) mono % 4.3 % 2.0-8.0 [place] % [place] ([facility]) eos % 0.0 % 0.0-3.0 Eos % [place] ([facility]) baso % 0.3 % 0.0-1.0 Baso % [place] ([facility]) immature granulocyte % 0.7 % 0-3.0 Immature Gran ulocyte % [place] ([facility]) nucleated red blood cell % 0.0 % 0-0 Nucleated Red Blood Cell % [place] ([facility]) neutrophils # 4.7 10 1.5-8.5 Neutrophils # [place] ( [facility]) lymph # 0.8 10 1.5-5.0 Below low normal Lymph # [place] ( [facility]) mono # 0.3 10 0.0-0.8 [place] # [place] ([facility]) eos # 0.0 10 0.0-0.5 Eos # [place] ([facility]) baso # 0.0 10 0.0-0.2 Baso # [place] ([facility]) ID Date Data Source [id number] 03/29/2021 11:54:00 PM EDT [place] ([facility]) Name Value Range Interpretation Code Description Data Claribel rce(s) Supporting Document(s) venous pH 7.148 units 7.330-7.430 Below low normal Venous pH [place] ([facility]) venous partial pressure CO2 26.3 mmHg 38.0-50.0 Below low nor mal Venous Partial Pressure CO2 [place] ([facility]) venous partial pressure O2 43.7 mmHg 30.0-50.0 Venous Pa rtial Pressure O2 [place] ([facility]) venous total CO2 9.7 mEq/L 24.0-28.0 Below low normal Venous Total CO2 [place] ([facility]) venous HCO3 8.9 mEq/L 23.0-27.0 Below low normal Venous HCO3 [place] ([facility]) venous base excess -2.0-2.0 Below low normal Venous Base Excess [place] ([facility]) venous standard HCO3 10.8 mEq/L Venous Standard HCO3 [place] ([facility]) venous O2 saturation 77.5 % 60.0-80.0 Venous O2 Satur ation [place] ([facility]) ID Date Data Source [id number] 03/29/2021 11:54:00 PM EDT [place] ([facility]) Name Value Range Interpretation Code Description Data Claribel rce(s) Supporting Document(s) acetone/ketone > 46.00 <2.81 Above high normal Acetone/ketone [place] ([facility]) ID Date Data Source [id number] 03/29/2021 11:54:00 PM EDT [place] ([facility]) Name Value Range Interpretation Code Description Data Claribel rce(s) Supporting Document(s) white blood count 5.8 10 4.0-10.0 White Blood Count [place] ([facility]) red blood count 4.70 10 4.00-5.40 Red Blood Count [place] ([facility]) hemoglobin 13.8 g/dL 12.0-15.5 Hemoglobin [place] ([facility]) mean corpuscular volume 90.4 fL 80.0-96.0 Mean Corpusc ular Volume [place] ([facility]) hematocrit 42.5 % 36.0-47.0 Hematocrit [place] ([facility]) mean corpuscular hemoglobin 29.4 pg 27.0-33.0 Mean Cor puscular Hemoglobin [place] ([facility]) mean corpuscular HGB conc 32.5 g/dL 32.0-36.5 Mean Corpu scular HGB Conc [place] ([facility]) red cell distribution width 12.0 % 11.5-14.5 Red Cell Distribution Width [place] ([facility]) platelet count, automated 295 10 150-450 Platelet C ount, Automated [place] ([facility]) neutrophils % 80.7 % 36.0-66.0 Above high normal Neutrophils % A [place] ([facility]) lymph % 14.0 % 24.0-44.0 Below low normal Lymph % [place] ( [facility]) eos % 0.0 % 0.0-3.0 Eos % [place] ([facility]) mono % 4.3 % 2.0-8.0 [place] % [place] ([facility]) baso % 0.3 % 0.0-1.0 Baso % [place] ([facility]) immature granulocyte % 0.7 % 0-3.0 Immature Gran ulocyte % [place] ([facility]) nucleated red blood cell % 0.0 % 0-0 Nucleated Red Blood Cell % [place] ([facility]) neutrophils # 4.7 10 1.5-8.5 Neutrophils # [place] ( [facility]) lymph # 0.8 10 1.5-5.0 Below low normal Lymph # [place] ( [facility]) mono # 0.3 10 0.0-0.8 [place] # [place] ([facility]) eos # 0.0 10 0.0-0.5 Eos # [place] ([facility]) baso # 0.0 10 0.0-0.2 Baso # [place] ([facility]) ID Date Data Source [id number] 03/29/2021 11:54:00 PM EDT [place] ([facility]) Name Value Range Interpretation Code Description Data Claribel rce(s) Supporting Document(s) venous pH 7.148 units 7.330-7.430 Below low normal Venous pH [place] ([facility]) venous partial pressure CO2 26.3 mmHg 38.0-50.0 Below low nor mal Venous Partial Pressure CO2 [place] ([facility]) venous partial pressure O2 43.7 mmHg 30.0-50.0 Venous Pa rtial Pressure O2 [place] ([facility]) venous total CO2 9.7 mEq/L 24.0-28.0 Below low normal Venous Total CO2 [place] ([facility]) venous base excess -2.0-2.0 Below low normal Venous Base Excess [place] ([facility]) venous HCO3 8.9 mEq/L 23.0-27.0 Below low normal Venous HCO3 [place] ([facility]) venous standard HCO3 10.8 mEq/L Venous Standard HCO3 [place] ([facility]) venous O2 saturation 77.5 % 60.0-80.0 Venous O2 Satur ation [place] ([facility]) ID Date Data Source [id number] 03/29/2021 11:54:00 PM EDT [place] ([facility]) Name Value Range Interpretation Code Description Data Claribel rce(s) Supporting Document(s) appearance, urine rfx clear clear Appearance, Ur ine Rfx [place] ([facility]) color, urine rfx yellow yellow Color, Urine Rfx AT [place] ([facility]) pH,urine rfx 6.0 units 5.0-9.0 pH,urine Rfx [place] ([facility]) specific gravity ur auto rfx 1.002-1.035 Specif ic [place] Ur Auto Rfx [place] ([facility]) protein, urine auto rfx 3+ negative Above high normal Prote in, Urine Auto Rfx [place] ([facility]) glucose, urine (UA) auto rfx 3+ negative Above high n ormal Glucose, Urine (UA) Auto Rfx [place] ([facility]) ketone, urine auto rfx 2+ negative Above high normal Ketone , Urine Auto Rfx [place] ([facility]) urobilinogen, urine auto rfx 0.2 mg/dL 0.0-2.0 Urobili nogen, Urine Auto Rfx [place] ([facility]) bilirubin, urine auto rfx negative negative Bilirubin, Urine Auto Rfx [place] ([facility]) nitrite, urine auto rfx negative negative Nitrite, Uri ne Auto Rfx [place] ([facility]) leukocyte esterase ur auto rfx negative negative Leukocyte Esterase Ur Auto Rfx [place] ([facility]) blood, urine blood rfx 1+ negative Above high normal Blood, Urine Blood Rfx [place] ([facility]) WBC, urine auto rfx 1 /hpf 0-3 WBC, Urine Auto Rfx [place] ([facility]) RBC, urine auto rfx 3 /hpf 0-3 RBC, Urine Auto Rfx [place] ([facility]) bacteria, urine auto rfx negative negative Bacteria, U rine Auto Rfx [place] ([facility]) squam epithelial cell ur aurfx 0 /hpf 0-6 Squam Epithelial Cell Ur Aurfx [place] ([facility]) mucus, urine rfx small negative Mucus, Urine Rfx AT [facility] ([facility]) hyaline cast, urine auto rfx 8 /lpf 0-1 Hyaline Cast, Urine Auto Rfx [place] ([facility]) ID Date Data Source [id number] 03/29/2021 11:54:00 PM EDT [place] ([facility]) Name Value Range Interpretation Code Description Data Claribel rce(s) Supporting Document(s) acetone/ketone > 46.00 <2.81 Above high normal Acetone/ketone [place] ([facility]) ID Date Data Source [id number] 03/29/2021 11:54:00 PM EDT [place] ([facility]) Name Value Range Interpretation Code Description Data Claribel rce(s) Supporting Document(s) white blood count 5.8 10 4.0-10.0 White Blood Count [place] ([facility]) red blood count 4.70 10 4.00-5.40 Red Blood Count [place] ([facility]) hemoglobin 13.8 g/dL 12.0-15.5 Hemoglobin [place] ([facility]) hematocrit 42.5 % 36.0-47.0 Hematocrit [place] ([facility]) mean corpuscular volume 90.4 fL 80.0-96.0 Mean Corpusc ular Volume [place] ([facility]) mean corpuscular hemoglobin 29.4 pg 27.0-33.0 Mean Cor puscular Hemoglobin [place] ([facility]) mean corpuscular HGB conc 32.5 g/dL 32.0-36.5 Mean Corpu scular HGB Conc [place] ([facility]) red cell distribution width 12.0 % 11.5-14.5 Red Cell Distribution Width [place] ([facility]) platelet count, automated 295 10 150-450 Platelet C ount, Automated [place] ([facility]) neutrophils % 80.7 % 36.0-66.0 Above high normal Neutrophils % A [place] ([facility]) lymph % 14.0 % 24.0-44.0 Below low normal Lymph % [place] ( [facility]) mono % 4.3 % 2.0-8.0 [place] % [facility] ([facility]) eos % 0.0 % 0.0-3.0 Eos % [place] ([facility]) baso % 0.3 % 0.0-1.0 Baso % [place] ([facility]) immature granulocyte % 0.7 % 0-3.0 Immature Gran ulocyte % [place] ([facility]) nucleated red blood cell % 0.0 % 0-0 Nucleated Red Blood Cell % [place] ([facility]) lymph # 0.8 10 1.5-5.0 Below low normal Lymph # [place] ( [facility]) neutrophils # 4.7 10 1.5-8.5 Neutrophils # [place] ( [facility]) mono # 0.3 10 0.0-0.8 [place] # [facility] ([facility]) eos # 0.0 10 0.0-0.5 Eos # [place] ([facility]) baso # 0.0 10 0.0-0.2 Baso # [place] ([facility]) ID Date Data Source [id number] 03/29/2021 11:54:00 PM EDT [place] ([facility]) Name Value Range Interpretation Code Description Data Claribel rce(s) Supporting Document(s) venous pH 7.148 units 7.330-7.430 Below low normal Venous pH [place] ([facility]) venous partial pressure CO2 26.3 mmHg 38.0-50.0 Below low nor mal Venous Partial Pressure CO2 [place] ([facility]) venous partial pressure O2 43.7 mmHg 30.0-50.0 Venous Pa rtial Pressure O2 [place] ([facility]) venous total CO2 9.7 mEq/L 24.0-28.0 Below low normal Venous Total CO2 [place] ([facility]) venous HCO3 8.9 mEq/L 23.0-27.0 Below low normal Venous HCO3 [place] ([facility]) venous base excess -2.0-2.0 Below low normal Venous Base Excess [place] ([facility]) venous standard HCO3 10.8 mEq/L Venous Standard HCO3 [place] ([facility]) venous O2 saturation 77.5 % 60.0-80.0 Venous O2 Satur ation [place] ([facility]) ID Date Data Source [id number] 03/29/2021 11:54:00 PM EDT [place] ([facility]) Name Value Range Interpretation Code Description Data Claribel rce(s) Supporting Document(s) color, urine rfx yellow yellow Color, Urine Rfx AT [place] [facility]) appearance, urine rfx clear clear Appearance, Ur ine Rfx [place] ([facility]) pH,urine rfx 6.0 units 5.0-9.0 pH,urine Rfx [place] ([facility]) specific gravity ur auto rfx 1.002-1.035 Specif ic [place] Ur Auto Rfx [place] ([facility]) protein, urine auto rfx 3+ negative Above high normal Prote in, Urine Auto Rfx [place] ([facility]) glucose, urine (UA) auto rfx 3+ negative Above high n ormal Glucose, Urine (UA) Auto Rfx [place] ([facility]) ketone, urine auto rfx 2+ negative Above high normal Ketone , Urine Auto Rfx [place] ([facility]) bilirubin, urine auto rfx negative negative Bilirubin, Urine Auto Rfx [place] ([facility]) urobilinogen, urine auto rfx 0.2 mg/dL 0.0-2.0 Urobili nogen, Urine Auto Rfx [place] ([facility]) nitrite, urine auto rfx negative negative Nitrite, Uri ne Auto Rfx [place] ([facility]) leukocyte esterase ur auto rfx negative negative Leukocyte Esterase Ur Auto Rfx [place] ([facility]) blood, urine blood rfx 1+ negative Above high normal Blood, Urine Blood Rfx [place] ([facility]) WBC, urine auto rfx 1 /hpf 0-3 WBC, Urine Auto Rfx [place] ([facility]) RBC, urine auto rfx 3 /hpf 0-3 RBC, Urine Auto Rfx [place] ([facility]) bacteria, urine auto rfx negative negative Bacteria, U rine Auto Rfx [place] ([facility]) squam epithelial cell ur aurfx 0 /hpf 0-6 Squam Epithelial Cell Ur Aurfx [place] ([facility]) mucus, urine rfx small negative Mucus, Urine Rfx AT [facility] ([facility]) hyaline cast, urine auto rfx 8 /lpf 0-1 Hyaline Cast, Urine Auto Rfx [place] ([facility]) ID Date Data Source [id number] 03/29/2021 09:58:00 PM EDT [place] ([facility]) Name Value Range Interpretation Code Description Data Claribel rce(s) Supporting Document(s) ID Date Data Source [id number] 03/29/2021 09:58:00 PM EDT [place] ([facility]) Name Value Range Interpretation Code Description Data Claribel rce(s) Supporting Document(s) ID Date Data Source [id number] 03/29/2021 09:58:00 PM EDT [facility] Name Value Range Interpretation Code Description Data Claribel rce(s) Supporting Document(s) SARS-CoV-2 (COVID 19) NEGATIVE - SARS-CoV-2 (COVID19) [facility] This lab was ordered by [facility] a nd reported by [facility]. ID Date Data Source [id number] 03/29/2021 09:58:00 PM EDT [place] ([facility]) Name Value Range Interpretation Code Description Data Claribel rce(s) Supporting Document(s) ID Date Data Source [id number] 03/26/2021 12:00:00 AM EDT [facility] Name Value Range Interpretation Code Description Data Claribel rce(s) Supporting Document(s) SARS-CoV2 Rapid Antigen Negative [facility] This lab was ordered by [facility] and reported by [facility]. ID Date Data Source [id number] 02/20/2021 01:30:18 PM EDT [facility] Name Value Range Interpretation Code Description Data Claribel rce(s) Supporting Document(s) Progress Note [facility] [id number] lbm [file] shipping and receiving [id number] [file] ID Date Data Source [id number] 02/20/2021 01:30:12 PM EDT [facility] Name Value Range Interpretation Code Description Data Claribel rce(s) Supporting Document(s) Progress Note [facility] [id number] lbm [file] [id number] ID Date Data Source [id number] 12/24/2020 12:00:00 AM EST [facility] Name Value Range Interpretation Code Description Data Claribel rce(s) Supporting Document(s) SARS coronavirus 2 RNA [Presence] in Res piratory specimen by ANDREE with probe detection NEGATIVE [facility] This lab was ordered by [facility] and reported by [facility]. ID Date Data Source [id number] 12/13/2020 09:35:00 AM EST [place] ([facility]) Name Value Range Interpretation Code Description Data Claribel rce(s) Supporting Document(s) glucose, fasting 270 mg/dL 70-100 Above high normal Glucose, Fas ting [place] ([facility]) blood urea nitrogen 13 mg/dL 7-18 Blood Urea Nitro gen [place] ([facility]) creatinine for GFR 1.13 mg/dL 0.55-1.30 Creatinine for GF R [place] ([facility]) glomerular filtration rate >60 Below low normal Mariza merular Filtration Rate [place] ([facility]) sodium level 140 mEq/L 136-145 Sodium Level [place] ([facility]) potassium serum 4.0 mEq/L 3.5-5.1 Potassium Serum [place] ([facility]) chloride level 111 mEq/L 98-107 Above high normal Chloride Level [place] ([facility]) carbon dioxide level 19 mEq/L 21-32 Below low normal Carbon Di oxide Level [place] ([facility]) anion gap 10 mEq/L 8-16 Anion Gap [place] ([facility]) calcium level 9.4 mg/dL 8.5-10.1 Calcium Level [place] ( [facility]) ID Date Data Source [id number] 12/13/2020 09:35:00 AM EST [place] ([facility]) Name Value Range Interpretation Code Description Data Claribel rce(s) Supporting Document(s) white blood count 3.4 10 4.0-10.0 Below low normal White Blood Count [place] ([facility]) red blood count 4.04 10 4.00-5.40 Red Blood Count [place] ([facility]) hemoglobin 11.8 g/dL 12.0-15.5 Below low normal Hemoglobin [place] ( [facility]) hematocrit 35.7 % 36.0-47.0 Below low normal Hematocrit [place] ( [facility]) mean corpuscular volume 88.4 fL 80.0-96.0 Mean Corpusc ular Volume [place] ([facility]) mean corpuscular hemoglobin 29.2 pg 27.0-33.0 Mean Cor puscular Hemoglobin [place] ([facility]) mean corpuscular HGB conc 33.1 g/dL 32.0-36.5 Mean Corpu scular HGB Conc [place] ([facility]) red cell distribution width 13.2 % 11.5-14.5 Red Cell Distribution Width [place] ([facility]) platelet count, automated 162 10 150-450 Platelet C ount, Automated [place] ([facility]) nucleated red blood cell % 0.0 % 0-0 Nucleated Red Blood Cell % [place] ([facility]) ID Date Data Source [id number] 12/13/2020 09:35:00 AM EST [place] ([facility]) Name Value Range Interpretation Code Description Data Claribel rce(s) Supporting Document(s) glucose, fasting 270 mg/dL 70-100 Above high normal Glucose, Fas ting [place] ([facility]) blood urea nitrogen 13 mg/dL 7-18 Blood Urea Nitro gen [place] ([facility]) creatinine for GFR 1.13 mg/dL 0.55-1.30 Creatinine for GF R [place] ([facility]) glomerular filtration rate >60 Below low normal Mariza merular Filtration Rate [place] ([facility]) sodium level 140 mEq/L 136-145 Sodium Level [place] ([facility]) potassium serum 4.0 mEq/L 3.5-5.1 Potassium Serum [place] ([facility]) chloride level 111 mEq/L 98-107 Above high normal Chloride Level [place] ([facility]) carbon dioxide level 19 mEq/L 21-32 Below low normal Carbon Di oxide Level [place] ([facility]) anion gap 10 mEq/L 8-16 Anion Gap [place] ([facility]) calcium level 9.4 mg/dL 8.5-10.1 Calcium Level [place] ( [facility]) ID Date Data Source [id number] 12/13/2020 09:35:00 AM EST [place] ([facility]) Name Value Range Interpretation Code Description Data Claribel rce(s) Supporting Document(s) white blood count 3.4 10 4.0-10.0 Below low normal White Blood Count [place] ([facility]) red blood count 4.04 10 4.00-5.40 Red Blood Count [place] ([facility]) hemoglobin 11.8 g/dL 12.0-15.5 Below low normal Hemoglobin [place] ( [facility]) hematocrit 35.7 % 36.0-47.0 Below low normal Hematocrit [place] ( [facility]) mean corpuscular volume 88.4 fL 80.0-96.0 Mean Corpusc ular Volume [place] ([facility]) mean corpuscular hemoglobin 29.2 pg 27.0-33.0 Mean Cor puscular Hemoglobin [place] ([facility]) mean corpuscular HGB conc 33.1 g/dL 32.0-36.5 Mean Corpu scular HGB Conc [place] ([facility]) red cell distribution width 13.2 % 11.5-14.5 Red Cell Distribution Width [place] ([facility]) platelet count, automated 162 10 150-450 Platelet C ount, Automated [place] ([facility]) nucleated red blood cell % 0.0 % 0-0 Nucleated Red Blood Cell % [place] ([facility]) ID Date Data Source [id number] 12/13/2020 09:35:00 AM EST [place] ([facility]) Name Value Range Interpretation Code Description Data Claribel rce(s) Supporting Document(s) glucose, fasting 270 mg/dL 70-100 Above high normal Glucose, Fas ting [place] ([facility]) blood urea nitrogen 13 mg/dL 7-18 Blood Urea Nitro gen [place] ([facility]) creatinine for GFR 1.13 mg/dL 0.55-1.30 Creatinine for GF R [place] ([facility]) glomerular filtration rate >60 Below low normal Mariza merular Filtration Rate [place] ([facility]) sodium level 140 mEq/L 136-145 Sodium Level [place] ([facility]) potassium serum 4.0 mEq/L 3.5-5.1 Potassium Serum [place] ([facility]) chloride level 111 mEq/L 98-107 Above high normal Chloride Level [place] ([facility]) carbon dioxide level 19 mEq/L 21-32 Below low normal Carbon Di oxide Level [place] ([facility]) anion gap 10 mEq/L 8-16 Anion Gap [place] ([facility]) calcium level 9.4 mg/dL 8.5-10.1 Calcium Level [place] ( [facility]) ID Date Data Source [id number] 12/13/2020 09:35:00 AM EST [facility]) Name Value Range Interpretation Code Description Data Claribel rce(s) Supporting Document(s) white blood count 3.4 10 4.0-10.0 Below low normal White Blood Count [place] ([facility]) red blood count 4.04 10 4.00-5.40 Red Blood Count [place] ([facility]) hemoglobin 11.8 g/dL 12.0-15.5 Below low normal Hemoglobin [place] ( [facility]) hematocrit 35.7 % 36.0-47.0 Below low normal Hematocrit [place] ( [facility]) mean corpuscular volume 88.4 fL 80.0-96.0 Mean Corpusc ular Volume [place] ([facility]) mean corpuscular hemoglobin 29.2 pg 27.0-33.0 Mean Cor puscular Hemoglobin [place] ([facility]) mean corpuscular HGB conc 33.1 g/dL 32.0-36.5 Mean Corpu scular HGB Conc [place] ([facility]) red cell distribution width 13.2 % 11.5-14.5 Red Cell Distribution Width [place] ([facility]) platelet count, automated 162 10 150-450 Platelet C ount, Automated [place] ([facility]) nucleated red blood cell % 0.0 % 0-0 Nucleated Red Blood Cell % [place] ([facility]) ID Date Data Source [id number] 12/13/2020 09:35:00 AM EST [place] ([facility]) Name Value Range Interpretation Code Description Data Claribel rce(s) Supporting Document(s) glucose, fasting 270 mg/dL 70-100 Above high normal Glucose, Fas ting [place] ([facility]) blood urea nitrogen 13 mg/dL 7-18 Blood Urea Nitro gen [place] ([facility]) creatinine for GFR 1.13 mg/dL 0.55-1.30 Creatinine for GF R [place] ([facility]) glomerular filtration rate >60 Below low normal Mariza merular Filtration Rate [place] ([facility]) sodium level 140 mEq/L 136-145 Sodium Level [place] ([facility]) potassium serum 4.0 mEq/L 3.5-5.1 Potassium Serum [place] ([facility]) chloride level 111 mEq/L 98-107 Above high normal Chloride Level [place] ([facility]) carbon dioxide level 19 mEq/L 21-32 Below low normal Carbon Di oxide Level [place] ([facility]) anion gap 10 mEq/L 8-16 Anion Gap [place] ([facility]) calcium level 9.4 mg/dL 8.5-10.1 Calcium Level [place] ( [facility]) ID Date Data Source [id number] 12/13/2020 09:35:00 AM EST [place] ([facility]) Name Value Range Interpretation Code Description Data [place] rce(s) Supporting Document(s) white blood count 3.4 10 4.0-10.0 Below low normal White Blood Count [place] ([facility]) red blood count 4.04 10 4.00-5.40 Red Blood Count [place] ([facility]) hemoglobin 11.8 g/dL 12.0-15.5 Below low normal Hemoglobin [place] ( [facility]) hematocrit 35.7 % 36.0-47.0 Below low normal Hematocrit [place] ( [facility]) mean corpuscular volume 88.4 fL 80.0-96.0 Mean Corpusc ular Volume [place] ([facility]) mean corpuscular hemoglobin 29.2 pg 27.0-33.0 Mean Cor puscular Hemoglobin [place] ([facility]) mean corpuscular HGB conc 33.1 g/dL 32.0-36.5 Mean Corpu scular HGB Conc [place] ([facility]) red cell distribution width 13.2 % 11.5-14.5 Red Cell Distribution Width [place] ([facility]) platelet count, automated 162 10 150-450 Platelet C ount, Automated [place] ([facility]) nucleated red blood cell % 0.0 % 0-0 Nucleated Red Blood Cell % [place] ([facility]) ID Date Data Source [id number] 12/13/2020 09:35:00 AM EST [facility]) Name Value Range Interpretation Code Description Data [place] rce(s) Supporting Document(s) glucose, fasting 270 mg/dL 70-100 Above high normal Glucose, Fas ting [place] ([facility]) blood urea nitrogen 13 mg/dL 7-18 Blood Urea Nitro gen [place] ([facility]) creatinine for GFR 1.13 mg/dL 0.55-1.30 Creatinine for GF R [place] ([facility]) glomerular filtration rate >60 Below low normal Mariza merular Filtration Rate [place] ([facility]) sodium level 140 mEq/L 136-145 Sodium Level [place] ([facility]) potassium serum 4.0 mEq/L 3.5-5.1 Potassium Serum [place] ([facility]) chloride level 111 mEq/L 98-107 Above high normal Chloride Level [place] ([facility]) carbon dioxide level 19 mEq/L 21-32 Below low normal Carbon Di oxide Level [place] ([facility]) anion gap 10 mEq/L 8-16 Anion Gap [place] ([facility]) calcium level 9.4 mg/dL 8.5-10.1 Calcium Level [facility]) ID Date Data Source [id number] 12/13/2020 09:35:00 AM EST [place] ([facility]) Name Value Range Interpretation Code Description Data Claribel rce(s) Supporting Document(s) white blood count 3.4 10 4.0-10.0 Below low normal White Blood Count [place] ([facility]) red blood count 4.04 10 4.00-5.40 Red Blood Count [place] ([facility]) hemoglobin 11.8 g/dL 12.0-15.5 Below low normal Hemoglobin [place] ( [facility]) hematocrit 35.7 % 36.0-47.0 Below low normal Hematocrit [place] ( [facility]) mean corpuscular volume 88.4 fL 80.0-96.0 Mean Corpusc ular Volume [place] ([facility]) mean corpuscular hemoglobin 29.2 pg 27.0-33.0 Mean Cor puscular Hemoglobin [place] ([facility]) red cell distribution width 13.2 % 11.5-14.5 Red Cell Distribution Width [place] ([facility]) mean corpuscular HGB conc 33.1 g/dL 32.0-36.5 Mean Corpu scular HGB Conc [place] ([facility]) platelet count, automated 162 10 150-450 Platelet C ount, Automated [place] ([facility]) nucleated red blood cell % 0.0 % 0-0 Nucleated Red Blood Cell % [place] ([facility]) ID Date Data Source [id number] 12/13/2020 09:35:00 AM EST [place] ([facility]) Name Value Range Interpretation Code Description Data [place] rce(s) Supporting Document(s) glucose, fasting 270 mg/dL 70-100 Above high normal Glucose, Fas ting [place] ([facility]) blood urea nitrogen 13 mg/dL 7-18 Blood Urea Nitro gen [place] ([facility]) creatinine for GFR 1.13 mg/dL 0.55-1.30 Creatinine for GF R [place] ([facility]) glomerular filtration rate >60 Below low normal Mariza merular Filtration Rate [place] ([facility]) sodium level 140 mEq/L 136-145 Sodium Level [place] ([facility]) chloride level 111 mEq/L 98-107 Above high normal Chloride Level [place] ([facility]) potassium serum 4.0 mEq/L 3.5-5.1 Potassium Serum [place] ([facility]) carbon dioxide level 19 mEq/L 21-32 Below low normal Carbon Di oxide Level [place] ([facility]) anion gap 10 mEq/L 8-16 Anion Gap [place] ([facility]) calcium level 9.4 mg/dL 8.5-10.1 Calcium Level [place] ( [facility]) ID Date Data Source [id number] 12/13/2020 09:35:00 AM EST [facility]) Name Value Range Interpretation Code Description Data Claribel rce(s) Supporting Document(s) white blood count 3.4 10 4.0-10.0 Below low normal White Blood Count [place] ([facility]) red blood count 4.04 10 4.00-5.40 Red Blood Count [place] ([facility]) hemoglobin 11.8 g/dL 12.0-15.5 Below low normal Hemoglobin [place] ( [facility]) hematocrit 35.7 % 36.0-47.0 Below low normal Hematocrit [place] ( [facility]) mean corpuscular volume 88.4 fL 80.0-96.0 Mean Corpusc ular Volume [place] ([facility]) mean corpuscular hemoglobin 29.2 pg 27.0-33.0 Mean Cor puscular Hemoglobin [place] ([facility]) mean corpuscular HGB conc 33.1 g/dL 32.0-36.5 Mean Corpu scular HGB Conc [place] ([facility]) red cell distribution width 13.2 % 11.5-14.5 Red Cell Distribution Width [place] ([facility]) platelet count, automated 162 10 150-450 Platelet C ount, Automated [place] ([facility]) nucleated red blood cell % 0.0 % 0-0 Nucleated Red Blood Cell % [place] ([facility]) ID Date Data Source [id number] 12/13/2020 07:31:00 AM EST [place] ([facility]) Name Value Range Interpretation Code Description Data Claribel rce(s) Supporting Document(s) bedside glucose 300 mg/dL 70-105 Above high normal Bedside Gluco se [place] ([facility]) ID Date Data Source [id number] 12/13/2020 07:31:00 AM EST [place] ([facility]) Name Value Range Interpretation Code Description Data Claribel rce(s) Supporting Document(s) bedside glucose 300 mg/dL 70-105 Above high normal Bedside Gluco se [place] ([facility]) ID Date Data Source [id number] 12/13/2020 07:31:00 AM EST [place] ([facility]) Name Value Range Interpretation Code Description Data Claribel rce(s) Supporting Document(s) bedside glucose 300 mg/dL 70-105 Above high normal Bedside Gluco se [place] ([facility]) ID Date Data Source [id number] 12/13/2020 07:31:00 AM EST [place] ([facility]) Name Value Range Interpretation Code Description Data Claribel rce(s) Supporting Document(s) bedside glucose 300 mg/dL 70-105 Above high normal Bedside Gluco se [place] ([facility]) ID Date Data Source [id number] 12/13/2020 07:31:00 AM EST [facility]) Name Value Range Interpretation Code Description Data Claribel rce(s) Supporting Document(s) bedside glucose 300 mg/dL 70-105 Above high normal [facility] Date Data Source [id number] 12/13/2020 07:31:00 AM EST [place] ([facility]) Name Value Range Interpretation Code Description Data Claribel rce(s) Supporting Document(s) bedside glucose 300 mg/dL 70-105 Above high normal Bedside Gluco se [place] ([facility]) ID Date Data Source [id number] 12/12/2020 08:46:00 PM EST [place] ([facility]) Name Value Range Interpretation Code Description Data Claribel rce(s) Supporting Document(s) bedside glucose 223 mg/dL 70-105 Above high normal Bedside Gluco se [place] ([facility]) ID Date Data Source [id number] 12/12/2020 08:46:00 PM EST [place] ([facility]) Name Value Range Interpretation Code Description Data Claribel rce(s) Supporting Document(s) bedside glucose 223 mg/dL 70-105 Above high normal Bedside Gluco se [place] ([facility]) ID Date Data Source [id number] 12/12/2020 08:46:00 PM EST [place] ([facility]) Name Value Range Interpretation Code Description Data Claribel rce(s) Supporting Document(s) bedside glucose 223 mg/dL 70-105 Above high normal Bedside Gluco se [facility] ([facility]) ID Date Data Source [id number] 12/12/2020 08:46:00 PM EST [place] ([facility]) Name Value Range Interpretation Code Description Data Claribel rce(s) Supporting Document(s) bedside glucose 223 mg/dL 70-105 Above high normal Bedside Gluco se [facility] ([facility]) ID Date Data Source [id number] 12/12/2020 08:46:00 PM EST [place] ([facility]) Name Value Range Interpretation Code Description Data Claribel rce(s) Supporting Document(s) bedside glucose 223 mg/dL 70-105 Above high normal Bedside Gluco se [facility] ([facility]) ID Date Data Source [id number] 12/12/2020 08:46:00 PM EST [place] ([facility]) Name Value Range Interpretation Code Description Data Claribel rce(s) Supporting Document(s) bedside glucose 223 mg/dL 70-105 Above high normal Bedside Gluco se [facility] ([facility]) ID Date Data Source [id number] 12/12/2020 04:33:00 PM EST [place] ([facility]) Name Value Range Interpretation Code Description Data Claribel rce(s) Supporting Document(s) bedside glucose 264 mg/dL 70-105 Above high normal Bedside Gluco se [facility]) ID Date Data Source [id number] 12/12/2020 04:33:00 PM EST [facility]) Name Value Range Interpretation Code Description Data Claribel rce(s) Supporting Document(s) bedside glucose 264 mg/dL 70-105 Above high normal [facility] Date Data Source [id number] 12/12/2020 04:33:00 PM EST [facility] ([facility]) Name Value Range Interpretation Code Description Data Claribel rce(s) Supporting Document(s) bedside glucose 264 mg/dL 70-105 Above high normal Bedside Gluco se [facility]) ID Date Data Source [id number] 12/12/2020 04:33:00 PM [facility] Name Value Range Interpretation Code Description Data Claribel rce(s) Supporting Document(s) bedside glucose 264 mg/dL 70-105 Above high normal [facility] ID Date Data Source [id number] 12/12/2020 04:33:00 PM EST [facility] ([facility]) Name Value Range Interpretation Code Description Data Claribel rce(s) Supporting Document(s) bedside glucose 264 mg/dL 70-105 Above high normal Bedside Gluco se [facility] ([facility]) ID Date Data Source [id number] 12/12/2020 04:33:00 PM EST [facility] ([facility]) Name Value Range Interpretation Code Description Data Claribel rce(s) Supporting Document(s) bedside glucose 264 mg/dL 70-105 Above high normal Bedside Gluco se [facility] ([facility]) ID Date Data Source [id number] 12/12/2020 12:02:00 PM EST [facility] ([facility]) Name Value Range Interpretation Code Description Data Claribel rce(s) Supporting Document(s) bedside glucose 124 mg/dL 70-105 Above high normal Bedside Gluco se [facility] ([facility]) ID Date Data Source [id number] 12/12/2020 12:02:00 PM EST [place] ([facility]) Name Value Range Interpretation Code Description Data Claribel rce(s) Supporting Document(s) bedside glucose 124 mg/dL 70-105 Above high normal Bedside Gluco se [facility] ([facility]) ID Date Data Source [id number] 12/12/2020 12:02:00 PM EST [place] ([facility]) Name Value Range Interpretation Code Description Data Claribel rce(s) Supporting Document(s) bedside glucose 124 mg/dL 70-105 Above high normal Bedside Gluco se [facility] ([facility]) ID Date Data Source [id number] 12/12/2020 12:02:00 PM EST [facility] ([facility]) Name Value Range Interpretation Code Description Data Claribel rce(s) Supporting Document(s) bedside glucose 124 mg/dL 70-105 Above high normal Bedside Gluco se [facility] ([facility]) ID Date Data Source [id number] 12/12/2020 12:02:00 PM EST [place] ([facility]) Name Value Range Interpretation Code Description Data Claribel rce(s) Supporting Document(s) bedside glucose 124 mg/dL 70-105 Above high normal Bedside Gluco se [facility] ([facility]) ID Date Data Source [id number] 12/12/2020 12:02:00 PM EST [facility] ([facility]) Name Value Range Interpretation Code Description Data Claribel rce(s) Supporting Document(s) bedside glucose 124 mg/dL 70-105 Above high normal Bedside Gluco se [facility]) ID Date Data Source [id number] 12/12/2020 08:03:00 AM EST [facility]) Name Value Range Interpretation Code Description Data Claribel rce(s) Supporting Document(s) bedside glucose 156 mg/dL 70-105 Above high normal [facility] ID Date Data Source [id number] 12/12/2020 08:03:00 AM EST [facility] ([facility]) Name Value Range Interpretation Code Description Data Claribel rce(s) Supporting Document(s) bedside glucose 156 mg/dL 70-105 Above high normal [facility] ID Date Data Source [id number] 12/12/2020 08:03:00 AM EST [facility]) Name Value Range Interpretation Code Description Data Claribel rce(s) Supporting Document(s) bedside glucose 156 mg/dL 70-105 Above high normal [facility] ID Date Data Source [id number] 12/12/2020 08:03:00 AM EST [facility] ([facility]) Name Value Range Interpretation Code Description Data Claribel rce(s) Supporting Document(s) bedside glucose 156 mg/dL 70-105 Above high normal Bedside Gluco se [facility] ([facility]) ID Date Data Source [id number] 12/12/2020 08:03:00 AM EST [facility] ([facility]) Name Value Range Interpretation Code Description Data Claribel rce(s) Supporting Document(s) bedside glucose 156 mg/dL 70-105 Above high normal Bedside Gluco se [facility] ([facility]) ID Date Data Source [id number] 12/12/2020 08:03:00 AM EST [place] ([facility]) Name Value Range Interpretation Code Description Data Claribel rce(s) Supporting Document(s) bedside glucose 156 mg/dL 70-105 Above high normal Bedside Gluco se [place] ([facility]) ID Date Data Source [id number] 12/12/2020 06:26:00 AM EST [place] ([facility]) Name Value Range Interpretation Code Description Data Claribel rce(s) Supporting Document(s) bedside glucose 170 mg/dL 70-105 Above high normal Bedside Gluco se [place] ([facility]) ID Date Data Source [id number] 12/12/2020 06:26:00 AM EST [place] ([facility]) Name Value Range Interpretation Code Description Data Claribel rce(s) Supporting Document(s) bedside glucose 170 mg/dL 70-105 Above high normal Bedside Gluco se [facility] ([facility]) ID Date Data Source [id number] 12/12/2020 06:26:00 AM EST [place] ([facility]) Name Value Range Interpretation Code Description Data Claribel rce(s) Supporting Document(s) bedside glucose 170 mg/dL 70-105 Above high normal Bedside Gluco se [place] ([facility]) ID Date Data Source [id number] 12/12/2020 06:26:00 AM EST [place] ([facility]) Name Value Range Interpretation Code Description Data Claribel rce(s) Supporting Document(s) bedside glucose 170 mg/dL 70-105 Above high normal Bedside Gluco se [place] ([facility]) ID Date Data Source [id number] 12/12/2020 06:26:00 AM EST [place] ([facility]) Name Value Range Interpretation Code Description Data Claribel rce(s) Supporting Document(s) bedside glucose 170 mg/dL 70-105 Above high normal Bedside Gluco se [place] ([facility]) ID Date Data Source [id number] 12/12/2020 06:26:00 AM EST [place] ([facility]) Name Value Range Interpretation Code Description Data Claribel rce(s) Supporting Document(s) bedside glucose 170 mg/dL 70-105 Above high normal [facility] Date Data Source [id number] 12/12/2020 05:08:00 AM EST [place] ([facility]) Name Value Range Interpretation Code Description Data Claribel rce(s) Supporting Document(s) bedside glucose 114 mg/dL 70-105 Above high normal Bedside Gluco se [place] ([facility]) ID Date Data Source [id number] 12/12/2020 05:08:00 AM EST [facility]) Name Value Range Interpretation Code Description Data Claribel rce(s) Supporting Document(s) bedside glucose 114 mg/dL 70-105 Above high normal [facility] ID Date Data Source [id number] 12/12/2020 05:08:00 AM EST [place] ([facility]) Name Value Range Interpretation Code Description Data Claribel rce(s) Supporting Document(s) bedside glucose 114 mg/dL 70-105 Above high normal Bedside Gluco se [place] ([facility]) ID Date Data Source [id number] 12/12/2020 05:08:00 AM EST [place] ([facility]) Name Value Range Interpretation Code Description Data Claribel rce(s) Supporting Document(s) bedside glucose 114 mg/dL 70-105 Above high normal Bedside Gluco se [place] ([facility]) ID Date Data Source [id number] 12/12/2020 05:08:00 AM EST [place] ([facility]) Name Value Range Interpretation Code Description Data Claribel rce(s) Supporting Document(s) bedside glucose 114 mg/dL 70-105 Above high normal Bedside Gluco se [place] ([facility]) ID Date Data Source [id number] 12/12/2020 05:08:00 AM EST [place] ([facility]) Name Value Range Interpretation Code Description Data Claribel rce(s) Supporting Document(s) bedside glucose 114 mg/dL 70-105 Above high normal Bedside Gluco se [place] ([facility]) ID Date Data Source [id number] 12/12/2020 04:32:00 AM EST [place] ([facility]) Name Value Range Interpretation Code Description Data Claribel rce(s) Supporting Document(s) magnesium level 2.6 mg/dL 1.8-2.4 Above high normal Magnesium Lev vasile HANNA [facility]) ID Date Data Source [id number] 12/12/2020 04:32:00 AM EST [facility] ([facility]) Name Value Range Interpretation Code Description Data Claribel rce(s) Supporting Document(s) phosphorus level 1.5 mg/dL 2.5-4.9 Below low normal Phosphorus Le karma [facility] ([facility]) ID Date Data Source [id number] 12/12/2020 04:32:00 AM EST [facility] ([facility]) Name Value Range Interpretation Code Description Data Claribel rce(s) Supporting Document(s) glucose, fasting 135 mg/dL 70-100 Above high normal Glucose, Fas ting [place] ([facility]) blood urea nitrogen 9 mg/dL 7-18 Blood Urea Nitro gen [place] ([facility]) creatinine for GFR 1.15 mg/dL 0.55-1.30 Creatinine for GF R [place] ([facility]) glomerular filtration rate >60 Below low normal Mariza merular Filtration Rate [place] ([facility]) sodium level 143 mEq/L 136-145 Sodium Level [facility] ([facility]) potassium serum 3.5 mEq/L 3.5-5.1 Potassium Serum ATH NA ([facility]) chloride level 114 mEq/L 98-107 Above high normal Chloride Level [place] ([facility]) carbon dioxide level 20 mEq/L 21-32 Below low normal Carbon Di oxide Level [place] ([facility]) anion gap 9 mEq/L 8-16 Anion Gap [place] ([facility]) calcium level 8.3 mg/dL 8.5-10.1 Below low normal Calcium Level AT [place] ([facility]) ID Date Data Source [id number] 12/12/2020 04:32:00 AM EST [place] ([facility]) Name Value Range Interpretation Code Description Data Claribel rce(s) Supporting Document(s) white blood count 4.7 10 4.0-10.0 White Blood Count [place] ([facility]) red blood count 3.44 10 4.00-5.40 Below low normal Red Blood Coun t [place] ([facility]) hemoglobin 9.9 g/dL 12.0-15.5 Below low normal Hemoglobin [place] ( [facility]) hematocrit 29.9 % 36.0-47.0 Below low normal Hematocrit [place] ( [facility]) mean corpuscular hemoglobin 28.8 pg 27.0-33.0 Mean Cor puscular Hemoglobin [place] ([facility]) mean corpuscular volume 86.9 fL 80.0-96.0 Mean Corpusc ular Volume [place] ([facility]) mean corpuscular HGB conc 33.1 g/dL 32.0-36.5 Mean Corpu scular HGB Conc [place] ([facility]) red cell distribution width 13.2 % 11.5-14.5 Red Cell Distribution Width [place] ([facility]) platelet count, automated 171 10 150-450 Platelet C ount, Automated [place] ([facility]) nucleated red blood cell % 0.0 % 0-0 Nucleated Red Blood Cell % [place] ([facility]) ID Date Data Source [id number] 12/12/2020 04:32:00 AM LE [place] ([facility]) Name Value Range Interpretation Code Description Data Claribel rce(s) Supporting Document(s) magnesium level 2.6 mg/dL 1.8-2.4 Above high normal Magnesium [place] ([facility]) ID Date Data Source [id number] 12/12/2020 04:32:00 AM LE [place] ([facility]) Name Value Range Interpretation Code Description Data Claribel rce(s) Supporting Document(s) phosphorus level 1.5 mg/dL 2.5-4.9 Below low normal Phosphorus Le karma [place] ([facility]) ID Date Data Source [id number] 12/12/2020 04:32:00 AM LE [place] ([facility]) Name Value Range Interpretation Code Description Data Claribel rce(s) Supporting Document(s) glucose, fasting 135 mg/dL 70-100 Above high normal Glucose, Fas ting [place] ([facility]) blood urea nitrogen 9 mg/dL 7-18 Blood Urea Nitro gen [facility] ([facility]) creatinine for GFR 1.15 mg/dL 0.55-1.30 Creatinine for GF R [place] ([facility]) glomerular filtration rate >60 Below low normal Mariza merular Filtration Rate [place] ([facility]) sodium level 143 mEq/L 136-145 Sodium Level [place] ([facility]) potassium serum 3.5 mEq/L 3.5-5.1 Potassium Serum ATHE NA ([facility]) chloride level 114 mEq/L 98-107 Above high normal Chloride Level [place] ([facility]) anion gap 9 mEq/L 8-16 Anion Gap [place] ([facility]) carbon dioxide level 20 mEq/L 21-32 Below low normal Carbon Di oxide Level [place] ([facility]) calcium level 8.3 mg/dL 8.5-10.1 Below low normal Calcium Level AT [place] ([facility]) ID Date Data Source [id number] 12/12/2020 04:32:00 AM EST [place] ([facility]) Name Value Range Interpretation Code Description Data Claribel rce(s) Supporting Document(s) white blood count 4.7 10 4.0-10.0 White Blood Count [place] ([facility]) red blood count 3.44 10 4.00-5.40 Below low normal Red Blood Coun t [place] ([facility]) hemoglobin 9.9 g/dL 12.0-15.5 Below low normal Hemoglobin [place] ( [facility]) hematocrit 29.9 % 36.0-47.0 Below low normal Hematocrit [place] ( [facility]) mean corpuscular volume 86.9 fL 80.0-96.0 Mean Corpusc ular Volume [place] ([facility]) mean corpuscular HGB conc 33.1 g/dL 32.0-36.5 Mean Corpu scular HGB Conc [place] ([facility]) mean corpuscular hemoglobin 28.8 pg 27.0-33.0 Mean Cor puscular Hemoglobin [place] ([facility]) red cell distribution width 13.2 % 11.5-14.5 Red Cell Distribution Width [place] ([facility]) platelet count, automated 171 10 150-450 Platelet C ount, Automated [place] ([facility]) nucleated red blood cell % 0.0 % 0-0 Nucleated Red Blood Cell % [place] ([facility]) ID Date Data Source [id number] 12/12/2020 04:32:00 AM EST [place] ([facility]) Name Value Range Interpretation Code Description Data Claribel rce(s) Supporting Document(s) magnesium level 2.6 mg/dL 1.8-2.4 Above high normal Magnesium Lev vasile [place] ([facility]) ID Date Data Source [id number] 12/12/2020 04:32:00 AM EST [place] ([facility]) Name Value Range Interpretation Code Description Data Claribel rce(s) Supporting Document(s) phosphorus level 1.5 mg/dL 2.5-4.9 Below low normal Phosphorus Le karma [place] ([facility]) ID Date Data Source [id number] 12/12/2020 04:32:00 AM EST [place] ([facility]) Name Value Range Interpretation Code Description Data Claribel rce(s) Supporting Document(s) glucose, fasting 135 mg/dL 70-100 Above high normal Glucose, Fas ting [place] ([facility]) blood urea nitrogen 9 mg/dL 7-18 Blood Urea Nitro gen [place] ([facility]) creatinine for GFR 1.15 mg/dL 0.55-1.30 Creatinine for GF R [place] ([facility]) glomerular filtration rate >60 Below low normal Mariza merular Filtration Rate [place] ([facility]) sodium level 143 mEq/L 136-145 Sodium Level [place] (No [facility]) potassium serum 3.5 mEq/L 3.5-5.1 Potassium Serum ATHE NA ([facility]) chloride level 114 mEq/L 98-107 Above high normal Chloride Level [place] ([facility]) carbon dioxide level 20 mEq/L 21-32 Below low normal Carbon Di oxide Level [place] ([facility]) anion gap 9 mEq/L 8-16 Anion Gap [place] ([facility]) calcium level 8.3 mg/dL 8.5-10.1 Below low normal Calcium Level AT [place] ([facility]) ID Date Data Source [id number] 12/12/2020 04:32:00 AM EST [place] ([facility]) Name Value Range Interpretation Code Description Data Claribel rce(s) Supporting Document(s) white blood count 4.7 10 4.0-10.0 White Blood Count [place] ([facility]) red blood count 3.44 10 4.00-5.40 Below low normal Red Blood Coun t [place] ([facility]) hemoglobin 9.9 g/dL 12.0-15.5 Below low normal Hemoglobin [place] ( [facility]) hematocrit 29.9 % 36.0-47.0 Below low normal Hematocrit [place] ( [facility]) mean corpuscular volume 86.9 fL 80.0-96.0 Mean Corpusc ular Volume [place] ([facility]) mean corpuscular hemoglobin 28.8 pg 27.0-33.0 Mean Cor puscular Hemoglobin [place] ([facility]) mean corpuscular HGB conc 33.1 g/dL 32.0-36.5 Mean Corpu scular HGB Conc [place] ([facility]) platelet count, automated 171 10 150-450 Platelet C ount, Automated [place] ([facility]) red cell distribution width 13.2 % 11.5-14.5 Red Cell Distribution Width [place] ([facility]) nucleated red blood cell % 0.0 % 0-0 Nucleated Red Blood Cell % [place] ([facility]) ID Date Data Source [id number] 12/12/2020 04:32:00 AM EST [place] ([facility]) Name Value Range Interpretation Code Description Data Claribel rce(s) Supporting Document(s) magnesium level 2.6 mg/dL 1.8-2.4 Above high normal Magnesium Lev el [place] ([facility]) ID Date Data Source [id number] 12/12/2020 04:32:00 AM EST [place] ([facility]) Name Value Range Interpretation Code Description Data Claribel rce(s) Supporting Document(s) phosphorus level 1.5 mg/dL 2.5-4.9 Below low normal Phosphorus Le karma [place] ([facility]) ID Date Data Source [id number] 12/12/2020 04:32:00 AM EST [place] ([facility]) Name Value Range Interpretation Code Description Data Claribel rce(s) Supporting Document(s) glucose, fasting 135 mg/dL 70-100 Above high normal Glucose, Fas ting [place] ([facility]) blood urea nitrogen 9 mg/dL 7-18 Blood Urea Nitro gen [place] ([facility]) creatinine for GFR 1.15 mg/dL 0.55-1.30 Creatinine for GF R [place] ([facility]) glomerular filtration rate >60 Below low normal Mariza merular Filtration Rate [place] ([facility]) sodium level 143 mEq/L 136-145 Sodium Level [place] ([facility]) potassium serum 3.5 mEq/L 3.5-5.1 Potassium Serum ATHE NA ([facility]) chloride level 114 mEq/L 98-107 Above high normal Chloride Level [place] ([facility]) carbon dioxide level 20 mEq/L 21-32 Below low normal Carbon Di oxide Level [place] ([facility]) anion gap 9 mEq/L 8-16 Anion Gap [place] ([facility]) calcium level 8.3 mg/dL 8.5-10.1 Below low normal Calcium Level AT [place] [facility]) ID Date Data Source [id number] 12/12/2020 04:32:00 AM LE [place] ([facility]) Name Value Range Interpretation Code Description Data Claribel rce(s) Supporting Document(s) white blood count 4.7 10 4.0-10.0 White Blood Count [place] ([facility]) red blood count 3.44 10 4.00-5.40 Below low normal Red Blood Coun t [place] ([facility]) hematocrit 29.9 % 36.0-47.0 Below low normal Hematocrit [place] ( [facility]) hemoglobin 9.9 g/dL 12.0-15.5 Below low normal Hemoglobin [place] ( [facility]) mean corpuscular volume 86.9 fL 80.0-96.0 Mean Corpusc ular Volume [place] ([facility]) mean corpuscular hemoglobin 28.8 pg 27.0-33.0 Mean Cor puscular Hemoglobin [place] ([facility]) mean corpuscular HGB conc 33.1 g/dL 32.0-36.5 Mean Corpu scular HGB Conc [place] ([facility]) red cell distribution width 13.2 % 11.5-14.5 Red Cell Distribution Width [place] ([facility]) platelet count, automated 171 10 150-450 Platelet C ount, Automated [place] ([facility]) nucleated red blood cell % 0.0 % 0-0 Nucleated Red Blood Cell % [place] ([facility]) ID Date Data Source [id number] 12/12/2020 04:32:00 AM LE [place] ([facility]) Name Value Range Interpretation Code Description Data Claribel rce(s) Supporting Document(s) magnesium level 2.6 mg/dL 1.8-2.4 Above high normal Magnesium Lev el [facility]) ID Date Data Source [id number] 12/12/2020 04:32:00 [facility] Name Value Range Interpretation Code Description Data Claribel rce(s) Supporting Document(s) phosphorus level 1.5 mg/dL 2.5-4.9 Below low normal Phosphorus Le karma [place] ([facility]) ID Date Data Source [id number] 12/12/2020 04:32:00 AM EST [place] ([facility]) Name Value Range Interpretation Code Description Data Claribel rce(s) Supporting Document(s) blood urea nitrogen 9 mg/dL 7-18 Blood Urea Nitro gen [place] ([facility]) glucose, fasting 135 mg/dL 70-100 Above high normal Glucose, Fas ting [place] ([facility]) creatinine for GFR 1.15 mg/dL 0.55-1.30 Creatinine for GF R [place] ([facility]) glomerular filtration rate >60 Below low normal Mariza merular Filtration Rate [place] ([facility]) potassium serum 3.5 mEq/L 3.5-5.1 Potassium Serum [place] NA ([facility]) sodium level 143 mEq/L 136-145 Sodium Level [place] ([facility]) chloride level 114 mEq/L 98-107 Above high normal Chloride Level [place] ([facility]) anion gap 9 mEq/L 8-16 Anion Gap [place] ([facility]) carbon dioxide level 20 mEq/L 21-32 Below low normal Carbon Di oxide Level [place] ([facility]) calcium level 8.3 mg/dL 8.5-10.1 Below low normal Calcium Level AT [facility]) ID Date Data Source [id number] 12/12/2020 04:32:00 AM EST [place] ([facility]) Name Value Range Interpretation Code Description Data Claribel rce(s) Supporting Document(s) white blood count 4.7 10 4.0-10.0 White Blood Count [place] ([facility]) hemoglobin 9.9 g/dL 12.0-15.5 Below low normal Hemoglobin [place] ( [facility]) red blood count 3.44 10 4.00-5.40 Below low normal Red Blood Coun t [place] ([facility]) hematocrit 29.9 % 36.0-47.0 Below low normal Hematocrit [place] ( [facility]) mean corpuscular hemoglobin 28.8 pg 27.0-33.0 Mean Cor puscular Hemoglobin [place] ([facility]) mean corpuscular volume 86.9 fL 80.0-96.0 Mean Corpusc ular Volume [place] ([facility]) mean corpuscular HGB conc 33.1 g/dL 32.0-36.5 Mean Corpu scular HGB Conc [place] ([facility]) red cell distribution width 13.2 % 11.5-14.5 Red Cell Distribution Width [place] ([facility]) platelet count, automated 171 10 150-450 Platelet C ount, Automated [place] ([facility]) nucleated red blood cell % 0.0 % 0-0 Nucleated Red Blood Cell % [place] ([facility]) ID Date Data Source [id number] 12/12/2020 04:32:00 AM EST [place] ([facility]) Name Value Range Interpretation Code Description Data Claribel rce(s) Supporting Document(s) magnesium level 2.6 mg/dL 1.8-2.4 Above high normal Magnesium Lev vasile [place] ([facility]) ID Date Data Source [id number] 12/12/2020 04:32:00 AM EST [facility]) Name Value Range Interpretation Code Description Data Claribel rce(s) Supporting Document(s) phosphorus level 1.5 mg/dL 2.5-4.9 Below low normal Phosphorus Le karma [place] ([facility]) ID Date Data Source [id number] 12/12/2020 04:32:00 AM EST [place] ([facility]) Name Value Range Interpretation Code Description Data Claribel rce(s) Supporting Document(s) glucose, fasting 135 mg/dL 70-100 Above high normal Glucose, Fas ting [place] ([facility]) blood urea nitrogen 9 mg/dL 7-18 Blood Urea Nitro gen [place] ([facility]) creatinine for GFR 1.15 mg/dL 0.55-1.30 Creatinine for GF R [place] ([facility]) sodium level 143 mEq/L 136-145 Sodium Level [place] ([facility]) glomerular filtration rate >60 Below low normal Mariza merular Filtration Rate [place] ([facility]) potassium serum 3.5 mEq/L 3.5-5.1 Potassium Serum [place] NA ([facility]) chloride level 114 mEq/L 98-107 Above high normal Chloride Level [place] ([facility]) carbon dioxide level 20 mEq/L 21-32 Below low normal Carbon Di oxide Level [place] ([facility]) anion gap 9 mEq/L 8-16 Anion Gap [place] ([facility]) calcium level 8.3 mg/dL 8.5-10.1 Below low normal Calcium Level AT [facility]) ID Date Data Source [id number] 12/12/2020 04:32:00 AM EST [place] ([facility]) Name Value Range Interpretation Code Description Data Claribel rce(s) Supporting Document(s) white blood count 4.7 10 4.0-10.0 White Blood Count [place] ([facility]) red blood count 3.44 10 4.00-5.40 Below low normal Red Blood Coun t [place] ([facility]) hemoglobin 9.9 g/dL 12.0-15.5 Below low normal Hemoglobin [place] ( [facility]) hematocrit 29.9 % 36.0-47.0 Below low normal Hematocrit [place] ( [facility]) mean corpuscular volume 86.9 fL 80.0-96.0 Mean Corpusc ular Volume [place] ([facility]) mean corpuscular hemoglobin 28.8 pg 27.0-33.0 Mean Cor puscular Hemoglobin [place] ([facility]) mean corpuscular HGB conc 33.1 g/dL 32.0-36.5 Mean Corpu scular HGB Conc [place] ([facility]) red cell distribution width 13.2 % 11.5-14.5 Red Cell Distribution Width [place] ([facility]) platelet count, automated 171 10 150-450 Platelet C ount, Automated [place] ([facility]) nucleated red blood cell % 0.0 % 0-0 Nucleated Red Blood Cell % [place] ([facility]) ID Date Data Source [id number] 12/12/2020 04:24:00 AM EST [place] ([facility]) Name Value Range Interpretation Code Description Data Claribel rce(s) Supporting Document(s) bedside glucose 133 mg/dL 70-105 Above high normal Bedside Gluco se [place] ([facility]) ID Date Data Source [id number] 12/12/2020 04:24:00 AM EST [place] ([facility]) Name Value Range Interpretation Code Description Data Claribel rce(s) Supporting Document(s) bedside glucose 133 mg/dL 70-105 Above high normal Bedside Gluco se [place] ([facility]) ID Date Data Source [id number] 12/12/2020 04:24:00 AM EST [place] ([facility]) Name Value Range Interpretation Code Description Data Claribel rce(s) Supporting Document(s) bedside glucose 133 mg/dL 70-105 Above high normal Bedside Gluco se [place] ([facility]) ID Date Data Source [id number] 12/12/2020 04:24:00 AM EST [place] ([facility]) Name Value Range Interpretation Code Description Data Claribel rce(s) Supporting Document(s) bedside glucose 133 mg/dL 70-105 Above high normal Bedside Gluco se [place] ([facility]) ID Date Data Source [id number] 12/12/2020 04:24:00 AM EST [place] ([facility]) Name Value Range Interpretation Code Description Data Claribel rce(s) Supporting Document(s) bedside glucose 133 mg/dL 70-105 Above high normal Bedside Gluco se [place] ([facility]) ID Date Data Source [id number] 12/12/2020 04:24:00 AM EST [place] ([facility]) Name Value Range Interpretation Code Description Data Claribel rce(s) Supporting Document(s) bedside glucose 133 mg/dL 70-105 Above high normal Bedside Gluco se [place] ([facility]) ID Date Data Source [id number] 12/12/2020 03:01:00 AM EST [place] ([facility]) Name Value Range Interpretation Code Description Data Claribel rce(s) Supporting Document(s) bedside glucose 153 mg/dL 70-105 Above high normal Bedside Gluco se [place] ([facility]) ID Date Data Source [id number] 12/12/2020 03:01:00 AM EST [place] ([facility]) Name Value Range Interpretation Code Description Data Claribel rce(s) Supporting Document(s) bedside glucose 153 mg/dL 70-105 Above high normal Bedside Gluco se [place] ([facility]) ID Date Data Source [id number] 12/12/2020 03:01:00 AM EST [place] ([facility]) Name Value Range Interpretation Code Description Data Claribel rce(s) Supporting Document(s) bedside glucose 153 mg/dL 70-105 Above high normal Bedside Gluco se [place] ([facility]) ID Date Data Source [id number] 12/12/2020 03:01:00 AM EST [place] ([facility]) Name Value Range Interpretation Code Description Data Claribel rce(s) Supporting Document(s) bedside glucose 153 mg/dL 70-105 Above high normal [facility] Data Source [id number] 12/12/2020 03:01:00 AM EST [place] ([facility]) Name Value Range Interpretation Code Description Data Claribel rce(s) Supporting Document(s) bedside glucose 153 mg/dL 70-105 Above high normal Bedside Gluco se [place] ([facility]) ID Date Data Source [id number] 12/12/2020 03:01:00 AM EST [place] ([facility]) Name Value Range Interpretation Code Description Data Claribel rce(s) Supporting Document(s) bedside glucose 153 mg/dL 70-105 Above high normal Bedside Gluco se [facility]) ID Date Data Source [id number] 12/12/2020 02:13:00 AM EST [place] ([facility]) Name Value Range Interpretation Code Description Data Claribel rce(s) Supporting Document(s) bedside glucose 140 mg/dL 70-105 Above high normal Bedside Gluco se [place] ([facility]) ID Date Data Source [id number] 12/12/2020 02:13:00 AM EST [place] ([facility]) Name Value Range Interpretation Code Description Data Claribel rce(s) Supporting Document(s) bedside glucose 140 mg/dL 70-105 Above high normal Bedside Gluco se [place] ([facility]) ID Date Data Source [id number] 12/12/2020 02:13:00 AM EST [place] ([facility]) Name Value Range Interpretation Code Description Data Claribel rce(s) Supporting Document(s) bedside glucose 140 mg/dL 70-105 Above high normal Bedside Gluco se [place] ([facility]) ID Date Data Source [id number] 12/12/2020 02:13:00 AM EST [place] ([facility]) Name Value Range Interpretation Code Description Data Claribel rce(s) Supporting Document(s) bedside glucose 140 mg/dL 70-105 Above high normal Bedside Gluco se [place] ([facility]) ID Date Data Source [id number] 12/12/2020 02:13:00 AM EST [place] ([facility]) Name Value Range Interpretation Code Description Data Claribel rce(s) Supporting Document(s) bedside glucose 140 mg/dL 70-105 Above high normal Bedside Gluco se [place] ([facility]) ID Date Data Source [id number] 12/12/2020 02:13:00 AM EST [place] ([facility]) Name Value Range Interpretation Code Description Data Claribel rce(s) Supporting Document(s) bedside glucose 140 mg/dL 70-105 Above high normal Bedside Gluco se [facility]) ID Date Data Source [id number] 12/12/2020 01:26:00 AM EST [facility]) Name Value Range Interpretation Code Description Data Claribel rce(s) Supporting Document(s) bedside glucose 115 mg/dL 70-105 Above high normal [facility] ID Date Data Source [id number] 12/12/2020 01:26:00 AM [facility] Name Value Range Interpretation Code Description Data Claribel rce(s) Supporting Document(s) bedside glucose 115 mg/dL 70-105 Above high normal Bedside Gluco se [facility]) ID Date Data Source [id number] 12/12/2020 01:26:00 AM [facility] Name Value Range Interpretation Code Description Data Claribel rce(s) Supporting Document(s) bedside glucose 115 mg/dL 70-105 Above high normal Bedside Gluco se [facility]) ID Date Data Source [id number] 12/12/2020 01:26:00 AM EST [place] ([facility]) Name Value Range Interpretation Code Description Data Claribel rce(s) Supporting Document(s) bedside glucose 115 mg/dL 70-105 Above high normal Bedside Gluco se [place] ([facility]) ID Date Data Source [id number] 12/12/2020 01:26:00 AM EST [place] ([facility]) Name Value Range Interpretation Code Description Data Claribel rce(s) Supporting Document(s) bedside glucose 115 mg/dL 70-105 Above high normal [facility] ID Date Data Source [id number] 12/12/2020 01:26:00 AM [facility] Name Value Range Interpretation Code Description Data Claribel rce(s) Supporting Document(s) bedside glucose 115 mg/dL 70-105 Above high normal Bedside Gluco se [facility]) ID Date Data Source [id number] 12/12/2020 12:21:00 AM EST [place] [facility]) Name Value Range Interpretation Code Description Data Claribel rce(s) Supporting Document(s) bedside glucose 130 mg/dL 70-105 Above high normal [facility] ID Date Data Source [id number] 12/12/2020 12:21:00 AM [facility] Name Value Range Interpretation Code Description Data Claribel rce(s) Supporting Document(s) bedside glucose 130 mg/dL 70-105 Above high normal [facility] ID Date Data Source [id number] 12/12/2020 12:21:00 AM EST [place] [facility]) Name Value Range Interpretation Code Description Data Claribel rce(s) Supporting Document(s) bedside glucose 130 mg/dL 70-105 Above high normal Bedside Gluco se [place] ([facility]) ID Date Data Source [id number] 12/12/2020 12:21:00 AM EST [place] ([facility]) Name Value Range Interpretation Code Description Data Claribel rce(s) Supporting Document(s) bedside glucose 130 mg/dL 70-105 Above high normal Bedside Gluco se [place] ([facility]) ID Date Data Source [id number] 12/12/2020 12:21:00 AM EST [place] [facility]) Name Value Range Interpretation Code Description Data Claribel rce(s) Supporting Document(s) bedside glucose 130 mg/dL 70-105 Above high normal [facility] ID Date Data Source [id number] 12/12/2020 12:21:00 AM [facility] Name Value Range Interpretation Code Description Data Claribel rce(s) Supporting Document(s) bedside glucose 130 mg/dL 70-105 Above high normal [facility] ID Date Data Source [id number] 12/12/2020 12:15:00 AM EST [place] [facility]) Name Value Range Interpretation Code Description Data Claribel rce(s) Supporting Document(s) phosphorus level 2.3 mg/dL 2.5-4.9 Below low normal Phosphorus Le karma [place] ([facility]) ID Date Data Source [id number] 12/12/2020 12:15:00 AM EST [place] [facility]) Name Value Range Interpretation Code Description Data Claribel rce(s) Supporting Document(s) magnesium level 2.9 mg/dL 1.8-2.4 Above high normal Magnesium Lev el [place] ([facility]) ID Date Data Source [id number] 12/12/2020 12:15:00 AM EST [place] ([facility]) Name Value Range Interpretation Code Description Data Claribel rce(s) Supporting Document(s) phosphorus level 2.3 mg/dL 2.5-4.9 Below low normal Phosphorus Le karma [place] ([facility]) ID Date Data Source [id number] 12/12/2020 12:15:00 AM EST [place] ([facility]) Name Value Range Interpretation Code Description Data Claribel rce(s) Supporting Document(s) glucose, fasting 146 mg/dL 70-100 Above high normal Glucose, Fas ting [place] ([facility]) blood urea nitrogen 12 mg/dL 7-18 Blood Urea Nitro gen [place] ([facility]) creatinine for GFR 1.02 mg/dL 0.55-1.30 Creatinine for GF R [place] ([facility]) glomerular filtration rate > 60.0 >60 Glomerula r Filtration Rate [place] ([facility]) potassium serum 3.4 mEq/L 3.5-5.1 Below low normal Potassium Seru m [place] ([facility]) sodium level 141 mEq/L 136-145 Sodium Level [place] ([facility]) chloride level 113 mEq/L 98-107 Above high normal Chloride Level [place] ([facility]) carbon dioxide level 19 mEq/L 21-32 Below low normal Carbon Di oxide Level [place] ([facility]) anion gap 9 mEq/L 8-16 Anion Gap [place] ([facility]) calcium level 8.5 mg/dL 8.5-10.1 Calcium Level [place] ( [facility]) ID Date Data Source [id number] 12/12/2020 12:15:00 AM EST [place] ([facility]) Name Value Range Interpretation Code Description Data Claribel rce(s) Supporting Document(s) phosphorus level 2.3 mg/dL 2.5-4.9 Below low normal Phosphorus Le karma [place] ([facility]) ID Date Data Source [id number] 12/12/2020 12:15:00 AM EST [place] ([facility]) Name Value Range Interpretation Code Description Data Claribel rce(s) Supporting Document(s) magnesium level 2.9 mg/dL 1.8-2.4 Above high normal Magnesium Lev el [place] ([facility]) ID Date Data Source [id number] 12/12/2020 12:15:00 AM EST [place] ([facility]) Name Value Range Interpretation Code Description Data Claribel rce(s) Supporting Document(s) phosphorus level 2.3 mg/dL 2.5-4.9 Below low normal Phosphorus Le karma [place] ([facility]) ID Date Data Source [id number] 12/12/2020 12:15:00 AM EST [place] ([facility]) Name Value Range Interpretation Code Description Data Claribel rce(s) Supporting Document(s) glucose, fasting 146 mg/dL 70-100 Above high normal Glucose, Fas ting [place] ([facility]) blood urea nitrogen 12 mg/dL 7-18 Blood Urea Nitro gen [place] ([facility]) creatinine for GFR 1.02 mg/dL 0.55-1.30 Creatinine for GF R [place] ([facility]) glomerular filtration rate > 60.0 >60 Glomerula r Filtration Rate [place] ([facility]) sodium level 141 mEq/L 136-145 Sodium Level [place] ([facility]) potassium serum 3.4 mEq/L 3.5-5.1 Below low normal Potassium Seru m [place] ([facility]) chloride level 113 mEq/L 98-107 Above high normal Chloride Level [place] ([facility]) carbon dioxide level 19 mEq/L 21-32 Below low normal Carbon Di oxide Level [place] ([facility]) anion gap 9 mEq/L 8-16 Anion Gap [place] ([facility]) calcium level 8.5 mg/dL 8.5-10.1 Calcium Level [place] ( [facility]) ID Date Data Source [id number] 12/12/2020 12:15:00 AM EST [place] ([facility]) Name Value Range Interpretation Code Description Data Claribel rce(s) Supporting Document(s) phosphorus level 2.3 mg/dL 2.5-4.9 Below low normal Phosphorus Le karma [place] ([facility]) ID Date Data Source [id number] 12/12/2020 12:15:00 AM EST [place] ([facility]) Name Value Range Interpretation Code Description Data Claribel rce(s) Supporting Document(s) magnesium level 2.9 mg/dL 1.8-2.4 Above high normal Magnesium Lev el [place] ([facility]) ID Date Data Source [id number] 12/12/2020 12:15:00 AM EST [place] ([facility]) Name Value Range Interpretation Code Description Data Claribel rce(s) Supporting Document(s) phosphorus level 2.3 mg/dL 2.5-4.9 Below low normal Phosphorus Le karma [place] ([facility]) ID Date Data Source [id number] 12/12/2020 12:15:00 AM EST [place] ([facility]) Name Value Range Interpretation Code Description Data Claribel rce(s) Supporting Document(s) glucose, fasting 146 mg/dL 70-100 Above high normal Glucose, Fas ting [place] ([facility]) creatinine for GFR 1.02 mg/dL 0.55-1.30 Creatinine for GF R [place] ([facility]) blood urea nitrogen 12 mg/dL 7-18 Blood Urea Nitro gen [place] ([facility]) glomerular filtration rate > 60.0 >60 Glomerula r Filtration Rate [place] ([facility]) sodium level 141 mEq/L 136-145 Sodium Level [place] ([facility]) potassium serum 3.4 mEq/L 3.5-5.1 Below low normal Potassium Seru m [place] ([facility]) chloride level 113 mEq/L 98-107 Above high normal Chloride Level [place] ([facility]) anion gap 9 mEq/L 8-16 Anion Gap [place] ([facility]) carbon dioxide level 19 mEq/L 21-32 Below low normal Carbon Di oxide Level [place] ([facility]) calcium level 8.5 mg/dL 8.5-10.1 Calcium Level [place] ( [facility]) ID Date Data Source [id number] 12/12/2020 12:15:00 AM EST [place] ([facility]) Name Value Range Interpretation Code Description Data Claribel rce(s) Supporting Document(s) glucose, fasting 146 mg/dL 70-100 Above high normal Glucose, Fas ting [place] ([facility]) blood urea nitrogen 12 mg/dL 7-18 Blood Urea Nitro gen [place] ([facility]) creatinine for GFR 1.02 mg/dL 0.55-1.30 Creatinine for GF R [place] ([facility]) glomerular filtration rate > 60.0 >60 Glomerula r Filtration Rate [place] ([facility]) sodium level 141 mEq/L 136-145 Sodium Level [place] ([facility]) potassium serum 3.4 mEq/L 3.5-5.1 Below low normal Potassium Seru m [place] ([facility]) chloride level 113 mEq/L 98-107 Above high normal Chloride Level [place] ([facility]) carbon dioxide level 19 mEq/L 21-32 Below low normal Carbon Di oxide Level [place] ([facility]) anion gap 9 mEq/L 8-16 Anion Gap [place] ([facility]) calcium level 8.5 mg/dL 8.5-10.1 Calcium Level [place] ( [facility]) ID Date Data Source [id number] 12/12/2020 12:15:00 AM EST [place] ([facility]) Name Value Range Interpretation Code Description Data Claribel rce(s) Supporting Document(s) phosphorus level 2.3 mg/dL 2.5-4.9 Below low normal Phosphorus Le karma [place] ([facility]) ID Date Data Source [id number] 12/12/2020 12:15:00 AM EST [place] [facility] [facility] Name Value Range Interpretation Code Description Data Claribel rce(s) Supporting Document(s) magnesium level 2.9 mg/dL 1.8-2.4 Above high normal Magnesium Lev vasile HENRIQUEZENA ([facility]) ID Date Data Source [id number] 12/12/2020 12:15:00 AM LE HANNA ([facility]) Name Value Range Interpretation Code Description Data Claribel rce(s) Supporting Document(s) phosphorus level 2.3 mg/dL 2.5-4.9 Below low normal Phosphorus Le karma HENRIQUEZENA ([facility]) ID Date Data Source [id number] 12/12/2020 12:15:00 AM EST CYNDI ([facility]) Name Value Range Interpretation Code Description Data Claribel rce(s) Supporting Document(s) glucose, fasting 146 mg/dL 70-100 Above high normal Glucose, Fas ting [place] ([facility]) blood urea nitrogen 12 mg/dL 7-18 Blood Urea Nitro gen [place] ([facility]) creatinine for GFR 1.02 mg/dL 0.55-1.30 Creatinine for GF R [place] ([facility]) glomerular filtration rate > 60.0 >60 Glomerula r Filtration Rate [place] ([facility]) sodium level 141 mEq/L 136-145 Sodium Level [place] ([facility]) potassium serum 3.4 mEq/L 3.5-5.1 Below low normal Potassium Seru m [place] ([facility]) chloride level 113 mEq/L 98-107 Above high normal Chloride Level [place] ([facility]) carbon dioxide level 19 mEq/L 21-32 Below low normal Carbon Di oxide Level [place] ([facility]) anion gap 9 mEq/L 8-16 Anion Gap [place] ([facility]) calcium level 8.5 mg/dL 8.5-10.1 Calcium Level [place] ( [facility]) ID Date Data Source [id number] 12/12/2020 12:15:00 AM EST [place] ([facility]) Name Value Range Interpretation Code Description Data Claribel rce(s) Supporting Document(s) phosphorus level 2.3 mg/dL 2.5-4.9 Below low normal Phosphorus Le karma HANNA ([facility]) ID Date Data Source [id number] 12/12/2020 12:15:00 AM EST [place] ([facility]) Name Value Range Interpretation Code Description Data Claribel rce(s) Supporting Document(s) magnesium level 2.9 mg/dL 1.8-2.4 Above high normal Magnesium Lev el [place] ([facility]) ID Date Data Source [id number] 12/12/2020 12:15:00 AM EST [place] ([facility]) Name Value Range Interpretation Code Description Data Claribel rce(s) Supporting Document(s) phosphorus level 2.3 mg/dL 2.5-4.9 Below low normal Phosphorus Le karma H[place] ([facility]) ID Date Data Source [id number] 12/12/2020 12:15:00 AM EST [place] ([facility]) Name Value Range Interpretation Code Description Data Claribel rce(s) Supporting Document(s) glucose, fasting 146 mg/dL 70-100 Above high normal Glucose, Fas ting [place] ([facility]) blood urea nitrogen 12 mg/dL 7-18 Blood Urea Nitro gen [place] ([facility]) creatinine for GFR 1.02 mg/dL 0.55-1.30 Creatinine for GF R [place] ([facility]) glomerular filtration rate > 60.0 >60 Glomerula r Filtration Rate [place] ([facility]) sodium level 141 mEq/L 136-145 Sodium Level [place] ([facility]) potassium serum 3.4 mEq/L 3.5-5.1 Below low normal Potassium Seru m [place] ([facility]) chloride level 113 mEq/L 98-107 Above high normal Chloride Level [place] ([facility]) carbon dioxide level 19 mEq/L 21-32 Below low normal Carbon Di oxide Level [place] ([facility]) anion gap 9 mEq/L 8-16 Anion Gap [place] ([facility]) calcium level 8.5 mg/dL 8.5-10.1 Calcium Level [place] ( [facility]) ID Date Data Source [id number] 12/12/2020 12:15:[facility] Name Value Range Interpretation Code Description Data Claribel rce(s) Supporting Document(s) phosphorus level 2.3 mg/dL 2.5-4.9 Below low normal Phosphorus Le karma HANNA ([facility]) ID Date Data Source [id number] 12/12/2020 12:15:00 AM EST CYNDI [facility]) Name Value Range Interpretation Code Description Data Claribel rce(s) Supporting Document(s) magnesium level 2.9 mg/dL 1.8-2.4 Above high normal Magnesium Lev el [place] [facility]) ID Date Data Source [id number] 12/12/2020 12:15:00 AM EST [place] [facility]) Name Value Range Interpretation Code Description Data Claribel rce(s) Supporting Document(s) phosphorus level 2.3 mg/dL 2.5-4.9 Below low normal Phosphorus Le karma [place] ([facility]) ID Date Data Source [id number] 12/11/2020 11:18:00 PM EST [place] ([facility]) Name Value Range Interpretation Code Description Data Claribel rce(s) Supporting Document(s) bedside glucose 142 mg/dL 70-105 Above high normal Bedside Gluco se [place] ([facility]) ID Date Data Source [id number] 12/11/2020 11:18:00 PM EST [place] ([facility]) Name Value Range Interpretation Code Description Data Claribel rce(s) Supporting Document(s) bedside glucose 142 mg/dL 70-105 Above high normal Bedside Gluco se [place] ([facility]) ID Date Data Source [id number] 12/11/2020 11:18:00 PM EST [place] ([facility]) Name Value Range Interpretation Code Description Data Claribel rce(s) Supporting Document(s) bedside glucose 142 mg/dL 70-105 Above high normal Bedside Gluco se [place] ([facility]) ID Date Data Source [id number] 12/11/2020 11:18:00 PM EST [place] ([facility]) Name Value Range Interpretation Code Description Data Claribel rce(s) Supporting Document(s) bedside glucose 142 mg/dL 70-105 Above high normal Bedside Gluco se [place] ([facility]) ID Date Data Source [id number] 12/11/2020 11:18:00 PM EST [place] ([facility]) Name Value Range Interpretation Code Description Data Claribel rce(s) Supporting Document(s) bedside glucose 142 mg/dL 70-105 Above high normal Bedside Gluco se [place] ([facility]) ID Date Data Source [id number] 12/11/2020 11:18:00 PM EST [place] ([facility]) Name Value Range Interpretation Code Description Data Claribel rce(s) Supporting Document(s) bedside glucose 142 mg/dL 70-105 Above high normal Bedside Gluco se [place] ([facility]) ID Date Data Source [id number] 12/11/2020 10:21:00 PM EST [place] ([facility]) Name Value Range Interpretation Code Description Data Claribel rce(s) Supporting Document(s) bedside glucose 135 mg/dL 70-105 Above high normal Bedside Gluco se [place] ([facility]) ID Date Data Source [id number] 12/11/2020 10[facility]21[facility] Name Value Range Interpretation Code Description Data Claribel rce(s) Supporting Document(s) bedside glucose 135 mg/dL 70-105 Above high normal Bedside Gluco se [facility]) ID Date Data Source [id number] 12/11/2020 10:21:00 PM EST [place] ([facility]) Name Value Range Interpretation Code Description Data Claribel rce(s) Supporting Document(s) bedside glucose 135 mg/dL 70-105 Above high normal Bedside Gluco se [place] ([facility]) ID Date Data Source [id number] 12/11/2020 10:21:00 PM EST [place] ([facility]) Name Value Range Interpretation Code Description Data Claribel rce(s) Supporting Document(s) bedside glucose 135 mg/dL 70-105 Above high normal Bedside Gluco se [place] ([facility]) ID Date Data Source [id number] 12/11/2020 10:21:00 PM EST [place] ([facility]) Name Value Range Interpretation Code Description Data Claribel rce(s) Supporting Document(s) bedside glucose 135 mg/dL 70-105 Above high normal Bedside Gluco se [facility]) ID Date Data Source [id number] 12/11/2020 10:21:00 PM EST [place] ([facility]) Name Value Range Interpretation Code Description Data Claribel rce(s) Supporting Document(s) bedside glucose 135 mg/dL 70-105 Above high normal Bedside Gluco se [place] ([facility]) ID Date Data Source [id number] 12/11/2020 09:17:00 PM EST [place] ([facility]) Name Value Range Interpretation Code Description Data Claribel rce(s) Supporting Document(s) bedside glucose 146 mg/dL 70-105 Above high normal Bedside Gluco se [place] ([facility]) ID Date Data Source [id number] 12/11/2020 09:17:00 PM EST [place] ([facility]) Name Value Range Interpretation Code Description Data Claribel rce(s) Supporting Document(s) bedside glucose 146 mg/dL 70-105 Above high normal Bedside Gluco se [place] ([facility]) ID Date Data Source [id number] 12/11/2020 09:17:00 PM EST [place] ([facility]) Name Value Range Interpretation Code Description Data Claribel rce(s) Supporting Document(s) bedside glucose 146 mg/dL 70-105 Above high normal Bedside Gluco se [place] ([facility]) ID Date Data Source [id number] 12/11/2020 09:17:00 PM EST [place] ([facility]) Name Value Range Interpretation Code Description Data Claribel rce(s) Supporting Document(s) bedside glucose 146 mg/dL 70-105 Above high normal Bedside Gluco se [place] ([facility]) ID Date Data Source [id number] 12/11/2020 09:17:00 PM EST [place] ([facility]) Name Value Range Interpretation Code Description Data Claribel rce(s) Supporting Document(s) bedside glucose 146 mg/dL 70-105 Above high normal Bedside Gluco se [place] ([facility]) ID Date Data Source [id number] 12/11/2020 09:17:00 PM EST [place] ([facility]) Name Value Range Interpretation Code Description Data Claribel rce(s) Supporting Document(s) bedside glucose 146 mg/dL 70-105 Above high normal Bedside Gluco se [place] ([facility]) ID Date Data Source [id number] 12/11/2020 08:14:00 PM EST [place] ([facility]) Name Value Range Interpretation Code Description Data Claribel rce(s) Supporting Document(s) bedside glucose 163 mg/dL 70-105 Above high normal Bedside Gluco se [place] ([facility]) ID Date Data Source [id number] 12/11/2020 08:14:00 PM EST [place] ([facility]) Name Value Range Interpretation Code Description Data Claribel rce(s) Supporting Document(s) bedside glucose 163 mg/dL 70-105 Above high normal Bedside Gluco se [place] ([facility]) ID Date Data Source [id number] 12/11/2020 08:14:00 PM EST [place]ND[place] ([facility]) Name Value Range Interpretation Code Description Data Claribel rce(s) Supporting Document(s) bedside glucose 163 mg/dL 70-105 Above high normal Bedside Gluco se [place] ([facility]) ID Date Data Source [id number] 12/11/2020 08:14:00 PM EST [place] ([facility]) Name Value Range Interpretation Code Description Data Claribel rce(s) Supporting Document(s) bedside glucose 163 mg/dL 70-105 Above high normal [facility] Date Data Source [id number] 12/11/2020 08:14:00 PM EST [place] ([facility]) Name Value Range Interpretation Code Description Data Claribel rce(s) Supporting Document(s) bedside glucose 163 mg/dL 70-105 Above high normal Bedside Gluco se [place] ([facility]) ID Date Data Source [id number] 12/11/2020 08:14:00 PM EST [place] ([facility]) Name Value Range Interpretation Code Description Data Claribel rce(s) Supporting Document(s) bedside glucose 163 mg/dL 70-105 Above high normal Bedside Gluco se [place] ([facility]) ID Date Data Source [id number] 12/11/2020 08:05:00 PM EST [place] ([facility]) Name Value Range Interpretation Code Description Data Claribel rce(s) Supporting Document(s) magnesium level 1.6 mg/dL 1.8-2.4 Below low normal Magnesium Mona HANNA ([facility]) ID Date Data Source [id number] 12/11/2020 08:05:00 PM EST [place]ND[place] ([facility]) Name Value Range Interpretation Code Description Data Claribel rce(s) Supporting Document(s) phosphorus level 1.8 mg/dL 2.5-4.9 Below low normal Phosphorus Le karma [place]AN[place] ([facility]) ID Date Data Source [id number] 12/11/2020 08:05:00 PM EST [place] ([facility]) Name Value Range Interpretation Code Description Data Claribel rce(s) Supporting Document(s) glucose, fasting 162 mg/dL 70-100 Above high normal Glucose, Fas ting [place] ([facility]) blood urea nitrogen 14 mg/dL 7-18 Blood Urea Nitro gen [place] ([facility]) creatinine for GFR 1.21 mg/dL 0.55-1.30 Creatinine for GF R [place] ([facility]) glomerular filtration rate >60 Below low normal Mariza merular Filtration Rate [place] ([facility]) sodium level 142 mEq/L 136-145 Sodium Level [place] ([facility]) chloride level 114 mEq/L 98-107 Above high normal Chloride Level [place] ([facility]) potassium serum 3.6 mEq/L 3.5-5.1 Potassium Serum [place] ([facility]) carbon dioxide level 19 mEq/L 21-32 Below low normal Carbon Di oxide Level [place] ([facility]) anion gap 9 mEq/L 8-16 Anion Gap [place] ([facility]) calcium level 8.7 mg/dL 8.5-10.1 Calcium Level [place] ( [facility]) ID Date Data Source [id number] 12/11/2020 08:05:00 PM EST [place] ([facility]) Name Value Range Interpretation Code Description Data Claribel rce(s) Supporting Document(s) magnesium level 1.6 mg/dL 1.8-2.4 Below low normal Magnesium Mona HENRIQUEZENA ([facility]) ID Date Data Source [id number] 12/11/2020 08:05:00 PM EST [place] ([facility]) Name Value Range Interpretation Code Description Data Claribel rce(s) Supporting Document(s) phosphorus level 1.8 mg/dL 2.5-4.9 Below low normal Phosphorus Le karma [place] ([facility]) ID Date Data Source [id number] 12/11/2020 08:05:00 PM EST [place] ([facility]) Name Value Range Interpretation Code Description Data Claribel rce(s) Supporting Document(s) glucose, fasting 162 mg/dL 70-100 Above high normal Glucose, Fas ting [place] ([facility]) blood urea nitrogen 14 mg/dL 7-18 Blood Urea Nitro gen [place] ([facility]) glomerular filtration rate >60 Below low normal Mariza merular Filtration Rate [place] ([facility]) creatinine for GFR 1.21 mg/dL 0.55-1.30 Creatinine for GF R [place] ([facility]) chloride level 114 mEq/L 98-107 Above high normal Chloride Level [place] ([facility]) potassium serum 3.6 mEq/L 3.5-5.1 Potassium Serum [place] ([facility]) sodium level 142 mEq/L 136-145 Sodium Level [place] ([facility]) carbon dioxide level 19 mEq/L 21-32 Below low normal Carbon Di oxide Level [place] ([facility]) anion gap 9 mEq/L 8-16 Anion Gap [place] ([facility]) calcium level 8.7 mg/dL 8.5-10.1 Calcium Level [place] ( [facility]) ID Date Data Source [id number] 12/11/2020 08:05:00 PM EST [place] ([facility]) Name Value Range Interpretation Code Description Data Claribel rce(s) Supporting Document(s) magnesium level 1.6 mg/dL 1.8-2.4 Below low normal Magnesium Mona l [place] ([facility]) ID Date Data Source [id number] 12/11/2020 08:05:00 PM EST [place] ([facility]) Name Value Range Interpretation Code Description Data Claribel rce(s) Supporting Document(s) phosphorus level 1.8 mg/dL 2.5-4.9 Below low normal Phosphorus Le karma [place] ([facility]) ID Date Data Source [id number] 12/11/2020 08:05:00 PM EST [place] ([facility]) Name Value Range Interpretation Code Description Data Claribel rce(s) Supporting Document(s) blood urea nitrogen 14 mg/dL 7-18 Blood Urea Nitro gen [place] ([facility]) glucose, fasting 162 mg/dL 70-100 Above high normal Glucose, Fas ting [place] ([facility]) creatinine for GFR 1.21 mg/dL 0.55-1.30 Creatinine for GF R [place] ([facility]) glomerular filtration rate >60 Below low normal Mariza merular Filtration Rate [place] ([facility]) sodium level 142 mEq/L 136-145 Sodium Level [place] ([facility]) potassium serum 3.6 mEq/L 3.5-5.1 Potassium Serum [place] ([facility]) chloride level 114 mEq/L 98-107 Above high normal Chloride Level [place] ([facility]) carbon dioxide level 19 mEq/L 21-32 Below low normal Carbon Di oxide Level [place] ([facility]) calcium level 8.7 mg/dL 8.5-10.1 Calcium Level [place] ( [facility]) anion gap 9 mEq/L 8-16 Anion Gap [place] ([facility]) ID Date Data Source [id number] 12/11/2020 08:05:00 PM EST [place] ([facility]) Name Value Range Interpretation Code Description Data Claribel rce(s) Supporting Document(s) magnesium level 1.6 mg/dL 1.8-2.4 Below low normal Magnesium Mona l [place] ([facility]) ID Date Data Source [id number] 12/11/2020 08:05:00 PM EST [place] ([facility]) Name Value Range Interpretation Code Description Data Claribel rce(s) Supporting Document(s) phosphorus level 1.8 mg/dL 2.5-4.9 Below low normal Phosphorus Le karma [place] ([facility]) ID Date Data Source [id number] 12/11/2020 08:05:00 PM EST [place] ([facility]) Name Value Range Interpretation Code Description Data Claribel rce(s) Supporting Document(s) glucose, fasting 162 mg/dL 70-100 Above high normal Glucose, Fas ting [place] ([facility]) creatinine for GFR 1.21 mg/dL 0.55-1.30 Creatinine for GF R [place] ([facility]) blood urea nitrogen 14 mg/dL 7-18 Blood Urea Nitro gen [place] ([facility]) potassium serum 3.6 mEq/L 3.5-5.1 Potassium Serum [place] NA ([facility]) glomerular filtration rate >60 Below low normal Mariza merular Filtration Rate [place] ([facility]) sodium level 142 mEq/L 136-145 Sodium Level [place] ([facility]) carbon dioxide level 19 mEq/L 21-32 Below low normal Carbon Di oxide Level [place] ([facility]) chloride level 114 mEq/L 98-107 Above high normal Chloride Level [place] ([facility]) anion gap 9 mEq/L 8-16 Anion Gap [place] ([facility]) calcium level 8.7 mg/dL 8.5-10.1 Calcium Level [place] ( [facility]) ID Date Data Source [id number] 12/11/2020 08:05:00 PM EST [place] ([facility]) Name Value Range Interpretation Code Description Data Claribel rce(s) Supporting Document(s) magnesium level 1.6 mg/dL 1.8-2.4 Below low normal Magnesium Mona cheema [place] ([facility]) ID Date Data Source [id number] 12/11/2020 08:05:00 PM EST [place] ([facility]) Name Value Range Interpretation Code Description Data Claribel rce(s) Supporting Document(s) phosphorus level 1.8 mg/dL 2.5-4.9 Below low normal Phosphorus Le karma [place] ([facility]) ID Date Data Source [id number] 12/11/2020 08:05:00 PM EST [place] ([facility]) Name Value Range Interpretation Code Description Data Claribel rce(s) Supporting Document(s) glucose, fasting 162 mg/dL 70-100 Above high normal Glucose, Fas ting [place] ([facility]) blood urea nitrogen 14 mg/dL 7-18 Blood Urea Nitro gen [place] ([facility]) glomerular filtration rate >60 Below low normal Mariza merular Filtration Rate [place] ([facility]) creatinine for GFR 1.21 mg/dL 0.55-1.30 Creatinine for GF R [place] ([facility]) potassium serum 3.6 mEq/L 3.5-5.1 Potassium Serum ATHE NA ([facility]) sodium level 142 mEq/L 136-145 Sodium Level [place] ([facility]) chloride level 114 mEq/L 98-107 Above high normal Chloride Level [place] ([facility]) anion gap 9 mEq/L 8-16 Anion Gap [facility] ([facility]) carbon dioxide level 19 mEq/L 21-32 Below low normal Carbon Di oxide Level [place] ([facility]) calcium level 8.7 mg/dL 8.5-10.1 Calcium Level [place] ( [facility]) ID Date Data Source [id number] 12/11/2020 08:05:00 PM EST [place] ([facility]) Name Value Range Interpretation Code Description Data Claribel rce(s) Supporting Document(s) magnesium level 1.6 mg/dL 1.8-2.4 Below low normal Magnesium Mona HEN[place]ZE[place] ([facility]) ID Date Data Source [id number] 12/11/2020 08:05:00 PM EST [place] ([facility]) Name Value Range Interpretation Code Description Data Claribel rce(s) Supporting Document(s) phosphorus level 1.8 mg/dL 2.5-4.9 Below low normal Phosphorus Le karma [place] ([facility]) ID Date Data Source [id number] 12/11/2020 08:05:00 PM EST [place] ([facility]) Name Value Range Interpretation Code Description Data Claribel rce(s) Supporting Document(s) blood urea nitrogen 14 mg/dL 7-18 Blood Urea Nitro gen [place] ([facility]) glucose, fasting 162 mg/dL 70-100 Above high normal Glucose, Fas ting [facility] [facility] glomerular filtration rate >60 Below low normal Mariza merular Filtration Rate [facility] ([facility]) creatinine for GFR 1.21 mg/dL 0.55-1.30 Creatinine for GF R [facility] ([facility]) sodium level 142 mEq/L 136-145 Sodium Level CYN[facility] ([facility]) potassium serum 3.6 mEq/L 3.5-5.1 Potassium Serum ATHE NA ([facility]) chloride level 114 mEq/L 98-107 Above high normal Chloride Level [place] ([facility]) anion gap 9 mEq/L 8-16 Anion Gap CYNDI ([facility]) carbon dioxide level 19 mEq/L 21-32 Below low normal Carbon Di oxide Level [place] ([facility]) calcium level 8.7 mg/dL 8.5-10.1 Calcium Level [place] ( [facility]) ID Date Data Source [id number] 12/11/2020 07:18:00 PM EST [place] ([facility]) Name Value Range Interpretation Code Description Data Claribel rce(s) Supporting Document(s) bedside glucose 160 mg/dL 70-105 Above high normal Bedside Gluco se [facility]) ID Date Data Source [id number] 12/11/2020 07:18:00 PM EST [facility]) Name Value Range Interpretation Code Description Data Claribel rce(s) Supporting Document(s) bedside glucose 160 mg/dL 70-105 Above high normal Bedside Gluco se [place] ([facility]) ID Date Data Source [id number] 12/11/2020 07:18:00 PM EST [place] ([facility]) Name Value Range Interpretation Code Description Data Claribel rce(s) Supporting Document(s) bedside glucose 160 mg/dL 70-105 Above high normal Bedside Gluco se [facility]) ID Date Data Source [id number] 12/11/2020 07:18:00 PM EST [place] ([facility]) Name Value Range Interpretation Code Description Data Claribel rce(s) Supporting Document(s) bedside glucose 160 mg/dL 70-105 Above high normal Bedside Gluco se [place] ([facility]) ID Date Data Source [id number] 12/11/2020 07:18:00 PM EST [place] ([facility]) Name Value Range Interpretation Code Description Data Claribel rce(s) Supporting Document(s) bedside glucose 160 mg/dL 70-105 Above high normal Bedside Gluco se [facility]) ID Date Data Source [id number] 12/11/2020 07:18:00 PM EST [place] ([facility]) Name Value Range Interpretation Code Description Data Clarbiel rce(s) Supporting Document(s) bedside glucose 160 mg/dL 70-105 Above high normal Bedside Gluco se [facility]) ID Date Data Source [id number] 12/11/2020 06:13:00 PM EST [place] ([facility]) Name Value Range Interpretation Code Description Data Claribel rce(s) Supporting Document(s) bedside glucose 187 mg/dL 70-105 Above high normal [facility] Date Data Source [id number] 12/11/2020 06:13:00 PM EST [place] ([facility]) Name Value Range Interpretation Code Description Data Claribel rce(s) Supporting Document(s) bedside glucose 187 mg/dL 70-105 Above high normal [facility] ID Date Data Source [id number] 12/11/2020 06:13:00 PM [facility] Name Value Range Interpretation Code Description Data Claribel rce(s) Supporting Document(s) bedside glucose 187 mg/dL 70-105 Above high normal Bedside Gluco se [place] ([facility]) ID Date Data Source [id number] 12/11/2020 06:13:00 PM EST [place] ([facility]) Name Value Range Interpretation Code Description Data Claribel rce(s) Supporting Document(s) bedside glucose 187 mg/dL 70-105 Above high normal Bedside Gluco se [place] ([facility]) ID Date Data Source [id number] 12/11/2020 06:13:00 PM EST [place] ([facility]) Name Value Range Interpretation Code Description Data Claribel rce(s) Supporting Document(s) bedside glucose 187 mg/dL 70-105 Above high normal Bedside Gluco se [facility]) ID Date Data Source [id number] 12/11/2020 06:13:00 PM EST [place] ([facility]) Name Value Range Interpretation Code Description Data Claribel rce(s) Supporting Document(s) bedside glucose 187 mg/dL 70-105 Above high normal Bedside Gluco se [facility]) ID Date Data Source [id number] 12/11/2020 04:58:00 PM EST [place] ([facility]) Name Value Range Interpretation Code Description Data Claribel rce(s) Supporting Document(s) bedside glucose 146 mg/dL 70-105 Above high normal Bedside Gluco se [place] ([facility]) ID Date Data Source [id number] 12/11/2020 04:58:00 PM [facility] Name Value Range Interpretation Code Description Data Claribel rce(s) Supporting Document(s) bedside glucose 146 mg/dL 70-105 Above high normal [facility] ID Date Data Source [id number] 12/11/2020 04:58:00 PM EST [place] ([facility]) Name Value Range Interpretation Code Description Data Claribel rce(s) Supporting Document(s) bedside glucose 146 mg/dL 70-105 Above high normal Bedside Gluco se [place] ([facility]) ID Date Data Source [id number] 12/11/2020 04:58:00 PM EST [place] ([facility]) Name Value Range Interpretation Code Description Data Claribel rce(s) Supporting Document(s) bedside glucose 146 mg/dL 70-105 Above high normal Bedside Gluco se [place] ([facility]) ID Date Data Source [id number] 12/11/2020 04:58:00 PM EST [place] ([facility]) Name Value Range Interpretation Code Description Data Claribel rce(s) Supporting Document(s) bedside glucose 146 mg/dL 70-105 Above high normal Bedside Gluco se [place] ([facility]) ID Date Data Source [id number] 12/11/2020 04:58:00 PM EST [place] ([facility]) Name Value Range Interpretation Code Description Data Claribel rce(s) Supporting Document(s) bedside glucose 146 mg/dL 70-105 Above high normal Bedside Gluco se [place] ([facility]) ID Date Data Source [id number] 12/11/2020 04:56:00 PM EST [place] ([facility]) Name Value Range Interpretation Code Description Data Claribel rce(s) Supporting Document(s) phosphorus level 1.9 mg/dL 2.5-4.9 Below low normal Phosphorus Le karma [place] ([facility]) ID Date Data Source [id number] 12/11/2020 04:56:00 PM EST [place] ([facility]) Name Value Range Interpretation Code Description Data Claribel rce(s) Supporting Document(s) glucose, fasting 169 mg/dL 70-100 Above high normal Glucose, Fas ting [place] ([facility]) blood urea nitrogen 16 mg/dL 7-18 Blood Urea Nitro gen [place] ([facility]) creatinine for GFR 1.19 mg/dL 0.55-1.30 Creatinine for GF R [place] ([facility]) glomerular filtration rate >60 Below low normal Mariza merular Filtration Rate [place] ([facility]) sodium level 141 mEq/L 136-145 Sodium Level [facility] ([facility]) potassium serum 3.5 mEq/L 3.5-5.1 Potassium Serum ATH NA ([facility]) chloride level 112 mEq/L 98-107 Above high normal Chloride Level [place] ([facility]) carbon dioxide level 18 mEq/L 21-32 Below low normal Carbon Di oxide Level [place] ([facility]) calcium level 8.6 mg/dL 8.5-10.1 Calcium Level [facility]) anion gap 11 mEq/L 8-16 Anion Gap [place] ([facility]) ID Date Data Source [id number] 12/11/2020 04:56:00 PM EST [facility]) Name Value Range Interpretation Code Description Data Claribel rce(s) Supporting Document(s) venous pH 7.305 units 7.330-7.430 Below low normal Venous pH [place] ([facility]) venous partial pressure CO2 35.7 mmHg 38.0-50.0 Below low nor mal Venous Partial Pressure CO2 [place] ([facility]) venous partial pressure O2 188.7 mmHg 30.0-50.0 Above high nor mal Venous Partial Pressure O2 [place] ([facility]) venous total CO2 18.5 mEq/L 24.0-28.0 Below low normal [facility]ous [facility] venous base excess -2.0-2.0 Below low normal Venous Base Excess [facility]) venous HCO3 17.4 mEq/L 23.0-27.0 Below low normal Venous HCO3 [place] ([facility]) venous standard HCO3 17.9 mEq/L Venous Standard HCO3 [place] ([facility]) venous O2 saturation 99.3 % 60.0-80.0 Above high normal Venous O 2 Saturation [place] ([facility]) ID Date Data Source [id number] 12/11/2020 04:56:00 PM EST [place] ([facility]) Name Value Range Interpretation Code Description Data Claribel rce(s) Supporting Document(s) phosphorus level 1.9 mg/dL 2.5-4.9 Below low normal Phosphorus Le karma [place] ([facility]) ID Date Data Source [id number] 12/11/2020 04:56:00 PM EST [place] ([facility]) Name Value Range Interpretation Code Description Data Claribel rce(s) Supporting Document(s) glucose, fasting 169 mg/dL 70-100 Above high normal Glucose, Fas ting [place] ([facility]) creatinine for GFR 1.19 mg/dL 0.55-1.30 Creatinine for GF R [place] ([facility]) blood urea nitrogen 16 mg/dL 7-18 Blood Urea Nitro gen [place] ([facility]) glomerular filtration rate >60 Below low normal [place] merular Filtration Rate [place] ([facility]) sodium level 141 mEq/L 136-145 Sodium Level [place] ([facility]) potassium serum 3.5 mEq/L 3.5-5.1 Potassium Serum ATHE NA ([facility]) chloride level 112 mEq/L 98-107 Above high normal Chloride Level [place] ([facility]) carbon dioxide level 18 mEq/L 21-32 Below low normal Carbon Di oxide Level [place] ([facility]) anion gap 11 mEq/L 8-16 Anion Gap [facility] ([facility]) calcium level 8.6 mg/dL 8.5-10.1 Calcium Level [place] ( [facility]) ID Date Data Source [id number] 12/11/2020 04:56:00 PM EST [place] ([facility]) Name Value Range Interpretation Code Description Data Claribel rce(s) Supporting Document(s) venous pH 7.305 units 7.330-7.430 Below low normal Venous pH [place] ([facility]) venous partial pressure O2 188.7 mmHg 30.0-50.0 Above high nor mal Venous Partial Pressure O2 [place] ([facility]) venous partial pressure CO2 35.7 mmHg 38.0-50.0 Below low nor mal Venous Partial Pressure CO2 [place] ([facility]) venous HCO3 17.4 mEq/L 23.0-27.0 Below low normal Venous HCO3 [place] ([facility]) venous total CO2 18.5 mEq/L 24.0-28.0 Below low normal Venous Total CO2 [place] ([facility]) venous base excess -2.0-2.0 Below low normal Venous Base Excess [place] ([facility]) venous standard HCO3 17.9 mEq/L Venous Standard HCO3 [place] ([facility]) venous O2 saturation 99.3 % 60.0-80.0 Above high normal Venous O 2 Saturation [place] ([facility]) ID Date Data Source [id number] 12/11/2020 04:56:00 PM EST [place] ([facility]) Name Value Range Interpretation Code Description Data Claribel rce(s) Supporting Document(s) phosphorus level 1.9 mg/dL 2.5-4.9 Below low normal Phosphorus Le karma [place] ([facility]) ID Date Data Source [id number] 12/11/2020 04:56:00 PM EST [place] ([facility]) Name Value Range Interpretation Code Description Data Claribel rce(s) Supporting Document(s) glucose, fasting 169 mg/dL 70-100 Above high normal Glucose, Fas ting [place] ([facility]) creatinine for GFR 1.19 mg/dL 0.55-1.30 Creatinine for GF R [place] ([facility]) blood urea nitrogen 16 mg/dL 7-18 Blood Urea Nitro gen [place] ([facility]) sodium level 141 mEq/L 136-145 Sodium Level [place] ([facility]) glomerular filtration rate >60 Below low normal Mariza merular Filtration Rate [place] ([facility]) chloride level 112 mEq/L 98-107 Above high normal Chloride Level [place] ([facility]) potassium serum 3.5 mEq/L 3.5-5.1 Potassium Serum ATHE NA ([facility]) anion gap 11 mEq/L 8-16 Anion Gap [facility] ([facility]) carbon dioxide level 18 mEq/L 21-32 Below low normal Carbon Di oxide Level [place] ([facility]) calcium level 8.6 mg/dL 8.5-10.1 Calcium Level [place] ( [facility]) ID Date Data Source [id number] 12/11/2020 04:56:00 PM EST [place] ([facility]) Name Value Range Interpretation Code Description Data Claribel rce(s) Supporting Document(s) venous partial pressure CO2 35.7 mmHg 38.0-50.0 Below low nor mal Venous Partial Pressure CO2 [place] ([facility]) venous pH 7.305 units 7.330-7.430 Below low normal Venous pH [place] ([facility]) venous total CO2 18.5 mEq/L 24.0-28.0 Below low normal Venous Total CO2 [place] ([facility]) venous partial pressure O2 188.7 mmHg 30.0-50.0 Above high nor mal Venous Partial Pressure O2 [place] ([facility]) venous HCO3 17.4 mEq/L 23.0-27.0 Below low normal Venous HCO3 [place] ([facility]) venous standard HCO3 17.9 mEq/L Venous Standard HCO3 [place] ([facility]) venous base excess -2.0-2.0 Below low normal Venous Base Excess [place] ([facility]) venous O2 saturation 99.3 % 60.0-80.0 Above high normal [facility] ID Date Data Source [id number] 12/11/2020 04:56:00 PM EST [place] ([facility]) Name Value Range Interpretation Code Description Data Claribel rce(s) Supporting Document(s) phosphorus level 1.9 mg/dL 2.5-4.9 Below low normal Phosphorus Le karma [place] ([facility]) ID Date Data Source [id number] 12/11/2020 04:56:00 PM EST [place] ([facility]) Name Value Range Interpretation Code Description Data Claribel rce(s) Supporting Document(s) glucose, fasting 169 mg/dL 70-100 Above high normal Glucose, Fas ting [place] ([facility]) blood urea nitrogen 16 mg/dL 7-18 Blood Urea Nitro gen [place] ([facility]) creatinine for GFR 1.19 mg/dL 0.55-1.30 Creatinine for GF R [place] ([facility]) sodium level 141 mEq/L 136-145 Sodium Level [place] ([facility]) glomerular filtration rate >60 Below low normal Mariza merular Filtration Rate [place] ([facility]) chloride level 112 mEq/L 98-107 Above high normal Chloride Level [place] ([facility]) potassium serum 3.5 mEq/L 3.5-5.1 Potassium Serum [place] ([facility]) carbon dioxide level 18 mEq/L 21-32 Below low normal Carbon Di oxide Level [place] ([facility]) anion gap 11 mEq/L 8-16 Anion Gap [place] ([facility]) calcium level 8.6 mg/dL 8.5-10.1 Calcium Level [place] ( [facility]) ID Date Data Source [id number] 12/11/2020 04:56:00 PM EST [place] ([facility]) Name Value Range Interpretation Code Description Data Claribel rce(s) Supporting Document(s) venous partial pressure CO2 35.7 mmHg 38.0-50.0 Below low nor mal Venous Partial Pressure CO2 [place] ([facility]) venous pH 7.305 units 7.330-7.430 Below low normal Venous pH [place] ([facility]) venous partial pressure O2 188.7 mmHg 30.0-50.0 Above high nor mal Venous Partial Pressure O2 [place] ([facility]) venous total CO2 18.5 mEq/L 24.0-28.0 Below low normal Venous Total CO2 [place] ([facility]) venous HCO3 17.4 mEq/L 23.0-27.0 Below low normal Venous HCO3 [place] ([facility]) venous standard HCO3 17.9 mEq/L Venous Standard HCO3 [place] ([facility]) venous base excess -2.0-2.0 Below low normal Venous Base Excess [place] ([facility]) venous O2 saturation 99.3 % 60.0-80.0 Above high normal Venous O 2 Saturation [place] ([facility]) ID Date Data Source [id number] 12/11/2020 04:56:00 PM EST [place] ([facility]) Name Value Range Interpretation Code Description Data Claribel rce(s) Supporting Document(s) phosphorus level 1.9 mg/dL 2.5-4.9 Below low normal Phosphorus Le karma [place] ([facility]) ID Date Data Source [id number] 12/11/2020 04:56:00 PM EST [place] ([facility]) Name Value Range Interpretation Code Description Data Clarible rce(s) Supporting Document(s) glucose, fasting 169 mg/dL 70-100 Above high normal Glucose, Fas ting [place] ([facility]) creatinine for GFR 1.19 mg/dL 0.55-1.30 Creatinine for GF R [place] ([facility]) blood urea nitrogen 16 mg/dL 7-18 Blood Urea Nitro gen [place] ([facility]) glomerular filtration rate >60 Below low normal Mariza merular Filtration Rate [place] ([facility]) sodium level 141 mEq/L 136-145 Sodium Level [place] ([facility]) potassium serum 3.5 mEq/L 3.5-5.1 Potassium Serum ATHE NA ([facility]) chloride level 112 mEq/L 98-107 Above high normal Chloride Level [place] ([facility]) anion gap 11 mEq/L 8-16 Anion Gap [place] ([facility]) carbon dioxide level 18 mEq/L 21-32 Below low normal Carbon Di oxide Level [place] ([facility]) calcium level 8.6 mg/dL 8.5-10.1 Calcium Level [place] ( [facility]) ID Date Data Source [id number] 12/11/2020 04:56:00 PM EST [place] ([facility]) Name Value Range Interpretation Code Description Data Claribel rce(s) Supporting Document(s) venous pH 7.305 units 7.330-7.430 Below low normal Venous pH [place] ([facility]) venous partial pressure CO2 35.7 mmHg 38.0-50.0 Below low nor mal Venous Partial Pressure CO2 [place] ([facility]) venous partial pressure O2 188.7 mmHg 30.0-50.0 Above high nor mal Venous Partial Pressure O2 [place] ([facility]) venous total CO2 18.5 mEq/L 24.0-28.0 Below low normal Venous Total CO2 [place] ([facility]) venous HCO3 17.4 mEq/L 23.0-27.0 Below low normal Venous HCO3 [place] ([facility]) venous standard HCO3 17.9 mEq/L Venous Standard HCO3 [place] ([facility]) venous base excess -2.0-2.0 Below low normal Venous Base Excess [place] ([facility]) venous O2 saturation 99.3 % 60.0-80.0 Above high normal Venous O 2 Saturation [place] ([facility]) ID Date Data Source [id number] 12/11/2020 04:56:00 PM EST [place] ([facility]) Name Value Range Interpretation Code Description Data Claribel rce(s) Supporting Document(s) phosphorus level 1.9 mg/dL 2.5-4.9 Below low normal Phosphorus Le karma [place] ([facility]) ID Date Data Source [id number] 12/11/2020 04:56:00 PM EST [place] ([facility]) Name Value Range Interpretation Code Description Data Claribel rce(s) Supporting Document(s) glucose, fasting 169 mg/dL 70-100 Above high normal Glucose, Fas ting [place] ([facility]) blood urea nitrogen 16 mg/dL 7-18 Blood Urea Nitro gen [place] ([facility]) creatinine for GFR 1.19 mg/dL 0.55-1.30 Creatinine for GF R [place] ([facility]) glomerular filtration rate >60 Below low normal Mariza merular Filtration Rate [place] ([facility]) sodium level 141 mEq/L 136-145 Sodium Level [place] ([facility]) potassium serum 3.5 mEq/L 3.5-5.1 Potassium Serum ATH NA ([facility]) chloride level 112 mEq/L 98-107 Above high normal Chloride Level [place] ([facility]) carbon dioxide level 18 mEq/L 21-32 Below low normal Carbon Di oxide Level [place] ([facility]) calcium level 8.6 mg/dL 8.5-10.1 Calcium Level [place] ( [facility]) anion gap 11 mEq/L 8-16 Anion Gap [place] ([facility]) ID Date Data Source [id number] 12/11/2020 04:56:00 PM EST [place] ([facility]) Name Value Range Interpretation Code Description Data Claribel rce(s) Supporting Document(s) venous pH 7.305 units 7.330-7.430 Below low normal Venous pH [place] ([facility]) venous partial pressure CO2 35.7 mmHg 38.0-50.0 Below low nor mal Venous Partial Pressure CO2 [place] ([facility]) venous total CO2 18.5 mEq/L 24.0-28.0 Below low normal Venous Total CO2 [place] ([facility]) venous partial pressure O2 188.7 mmHg 30.0-50.0 Above high nor mal Venous Partial Pressure O2 [place] ([facility]) venous HCO3 17.4 mEq/L 23.0-27.0 Below low normal Venous HCO3 [place] ([facility]) venous base excess -2.0-2.0 Below low normal Venous Base Excess [place] ([facility]) venous O2 saturation 99.3 % 60.0-80.0 Above high normal Venous O 2 Saturation [place] ([facility]) venous standard HCO3 17.9 mEq/L Venous Standard HCO3 [place] ([facility]) ID Date Data Source [id number] 12/11/2020 04:01:00 PM EST [place] ([facility]) Name Value Range Interpretation Code Description Data Claribel rce(s) Supporting Document(s) bedside glucose 160 mg/dL 70-105 Above high normal Bedside Gluco se [place] ([facility]) ID Date Data Source [id number] 12/11/2020 04:01:00 PM EST [place] ([facility]) Name Value Range Interpretation Code Description Data Claribel rce(s) Supporting Document(s) bedside glucose 160 mg/dL 70-105 Above high normal [place]side Gluc[place] ([facility]) ID Date Data Source [id number] 12/11/2020 04:01:00 PM EST [place] ([facility]) Name Value Range Interpretation Code Description Data Claribel rce(s) Supporting Document(s) bedside glucose 160 mg/dL 70-105 Above high normal Bedside Gluco se [place] ([facility]) ID Date Data Source [id number] 12/11/2020 04:01:00 PM EST [place] ([facility]) Name Value Range Interpretation Code Description Data Claribel rce(s) Supporting Document(s) bedside glucose 160 mg/dL 70-105 Above high normal Bedside Gluco se [place] ([facility]) ID Date Data Source [id number] 12/11/2020 04:01:00 PM EST [place] ([facility]) Name Value Range Interpretation Code Description Data Claribel rce(s) Supporting Document(s) bedside glucose 160 mg/dL 70-105 Above high normal Bedside Gluco se [place] ([facility]) ID Date Data Source [id number] 12/11/2020 04:01:00 PM EST [place] ([facility]) Name Value Range Interpretation Code Description Data Claribel rce(s) Supporting Document(s) bedside glucose 160 mg/dL 70-105 Above high normal Bedside Gluco se [place] ([facility]) ID Date Data Source [id number] 12/11/2020 03:04:00 PM EST [place] ([facility]) Name Value Range Interpretation Code Description Data Claribel rce(s) Supporting Document(s) bedside glucose 194 mg/dL 70-105 Above high normal Bedside Gluco se [place] ([facility]) ID Date Data Source [id number] 12/11/2020 03:04:00 PM EST [place] ([facility]) Name Value Range Interpretation Code Description Data Claribel rce(s) Supporting Document(s) bedside glucose 194 mg/dL 70-105 Above high normal Bedside Gluco se [place] ([facility]) ID Date Data Source [id number] 12/11/2020 03:04:00 PM EST [place] ([facility]) Name Value Range Interpretation Code Description Data Claribel rce(s) Supporting Document(s) bedside glucose 194 mg/dL 70-105 Above high normal Bedside Gluco se [place] ([facility]) ID Date Data Source [id number] 12/11/2020 03:04:00 PM EST [place] ([facility]) Name Value Range Interpretation Code Description Data Claribel rce(s) Supporting Document(s) bedside glucose 194 mg/dL 70-105 Above high [facility] Date Data Source [id number] 12/11/2020 03:04:00 PM EST [place] ([facility]) Name Value Range Interpretation Code Description Data Claribel rce(s) Supporting Document(s) bedside glucose 194 mg/dL 70-105 Above high normal Bedside Gluco se [place] ([facility]) ID Date Data Source [id number] 12/11/2020 03:04:00 PM EST [place] ([facility]) Name Value Range Interpretation Code Description Data Claribel rce(s) Supporting Document(s) bedside glucose 194 mg/dL 70-105 Above high normal Bedside Gluco se [place] ([facility]) ID Date Data Source [id number] 12/11/2020 02:11:00 PM EST [place] ([facility]) Name Value Range Interpretation Code Description Data Claribel rce(s) Supporting Document(s) bedside glucose 148 mg/dL 70-105 Above high normal Bedside Gluco se [place] ([facility]) ID Date Data Source [id number] 12/11/2020 02:11:00 PM EST [place] ([facility]) Name Value Range Interpretation Code Description Data Claribel rce(s) Supporting Document(s) bedside glucose 148 mg/dL 70-105 Above high normal Bedside Gluco se [place] ([facility]) ID Date Data Source [id number] 12/11/2020 02:11:00 PM EST [place] ([facility]) Name Value Range Interpretation Code Description Data Claribel rce(s) Supporting Document(s) bedside glucose 148 mg/dL 70-105 Above high normal Bedside Gluco se [place] ([facility]) ID Date Data Source [id number] 12/11/2020 02:11:00 PM EST [place] ([facility]) Name Value Range Interpretation Code Description Data Claribel rce(s) Supporting Document(s) bedside glucose 148 mg/dL 70-105 Above high normal Bedside Gluco se [place] ([facility]) ID Date Data Source [id number] 12/11/2020 02:11:00 PM EST [place] ([facility]) Name Value Range Interpretation Code Description Data Claribel rce(s) Supporting Document(s) bedside glucose 148 mg/dL 70-105 Above high normal Bedside Gluco se [place] ([facility]) ID Date Data Source [id number] 12/11/2020 02:11:00 PM EST [place] ([facility]) Name Value Range Interpretation Code Description Data Claribel rce(s) Supporting Document(s) bedside glucose 148 mg/dL 70-105 Above high normal Bedside Gluco se [place] ([facility]) ID Date Data Source [id number] 12/11/2020 01:15:00 PM EST [place] ([facility]) Name Value Range Interpretation Code Description Data Claribel rce(s) Supporting Document(s) bedside glucose 157 mg/dL 70-105 Above high normal Bedside Gluco se [place] ([facility]) ID Date Data Source [id number] 12/11/2020 01:15:00 PM EST [place] ([facility]) Name Value Range Interpretation Code Description Data Claribel rce(s) Supporting Document(s) bedside glucose 157 mg/dL 70-105 Above high normal Bedside Gluco se [facility]) ID Date Data Source [id number] 12/11/2020 01:15:00 PM EST [place] ([facility]) Name Value Range Interpretation Code Description Data Claribel rce(s) Supporting Document(s) bedside glucose 157 mg/dL 70-105 Above high normal Bedside Gluco se [place] ([facility]) ID Date Data Source [id number] 12/11/2020 01:15:00 PM EST [place] ([facility]) Name Value Range Interpretation Code Description Data Claribel rce(s) Supporting Document(s) bedside glucose 157 mg/dL 70-105 Above high normal Bedside Gluco se [place] ([facility]) ID Date Data Source [id number] 12/11/2020 01:15:00 PM EST [place] ([facility]) Name Value Range Interpretation Code Description Data Claribel rce(s) Supporting Document(s) bedside glucose 157 mg/dL 70-105 Above high normal Bedside Gluco se [place] ([facility]) ID Date Data Source [id number] 12/11/2020 01:15:00 PM EST [place] ([facility]) Name Value Range Interpretation Code Description Data Claribel rce(s) Supporting Document(s) bedside glucose 157 mg/dL 70-105 Above high normal Bedside Gluco se [place] ([facility]) ID Date Data Source [id number] 12/11/2020 01:05:00 PM EST [place] ([facility]) Name Value Range Interpretation Code Description Data Claribel rce(s) Supporting Document(s) osmolality serum 306 mOsm/kg 275-295 Above high normal Osmolality Serum [place] ([facility]) ID Date Data Source [id number] 12/11/2020 01:05:00 PM EST [place] ([facility]) Name Value Range Interpretation Code Description Data Claribel rce(s) Supporting Document(s) phosphorus level 2.2 mg/dL 2.5-4.9 Below low normal Phosphorus Le karma [place] ([facility]) ID Date Data Source [id number] 12/11/2020 01:05:00 PM EST [place] ([facility]) Name Value Range Interpretation Code Description Data Claribel rce(s) Supporting Document(s) glucose, fasting 181 mg/dL 70-100 Above high normal Glucose, Fas ting [place] ([facility]) blood urea nitrogen 18 mg/dL 7-18 Blood Urea Nitro gen [place] ([facility]) creatinine for GFR 1.28 mg/dL 0.55-1.30 Creatinine for GF R [place] ([facility]) glomerular filtration rate >60 Below low normal Mariza merular Filtration Rate [place] ([facility]) sodium level 141 mEq/L 136-145 Sodium Level [place] ([facility]) potassium serum 3.4 mEq/L 3.5-5.1 Below low normal Potassium Seru m [place] ([facility]) chloride level 112 mEq/L 98-107 Above high normal Chloride Level [place] ([facility]) carbon dioxide level 18 mEq/L 21-32 Below low normal Carbon Di oxide Level [place] ([facility]) anion gap 11 mEq/L 8-16 Anion Gap [place] ([facility]) calcium level 8.6 mg/dL 8.5-10.1 Calcium Level [place] ( [facility]) ID Date Data Source [id number] 12/11/2020 01:05:00 PM EST [place] ([facility]) Name Value Range Interpretation Code Description Data Claribel rce(s) Supporting Document(s) venous pH 7.238 units 7.330-7.430 Below low normal Venous pH [place] ([facility]) venous partial pressure CO2 35.2 mmHg 38.0-50.0 Below low nor mal Venous Partial Pressure CO2 [place] ([facility]) venous partial pressure O2 105.8 mmHg 30.0-50.0 Above high nor mal Venous Partial Pressure O2 [place] ([facility]) venous total CO2 15.8 mEq/L 24.0-28.0 Below low normal Venous Total CO2 [place] ([facility]) venous HCO3 14.7 mEq/L 23.0-27.0 Below low normal Venous HCO3 [place] ([facility]) venous base excess -2.0-2.0 Below low normal Venous Base Excess [place] ([facility]) venous standard HCO3 15.2 mEq/L Venous Standard HCO3 [place] ([facility]) venous O2 saturation 97.8 % 60.0-80.0 Above high normal Venous O 2 Saturation [place] ([facility]) ID Date Data Source [id number] 12/11/2020 01:05:00 PM EST [place] ([facility]) Name Value Range Interpretation Code Description Data Claribel rce(s) Supporting Document(s) osmolality serum 306 mOsm/kg 275-295 Above high normal Osmolality Serum [place] ([facility]) ID Date Data Source [id number] 12/11/2020 01:05:00 PM EST [place] ([facility]) Name Value Range Interpretation Code Description Data Claribel rce(s) Supporting Document(s) phosphorus level 2.2 mg/dL 2.5-4.9 Below low normal Phosphorus Le karma [place] ([facility]) ID Date Data Source [id number] 12/11/2020 01:05:00 PM EST [place] ([facility]) Name Value Range Interpretation Code Description Data Claribel rce(s) Supporting Document(s) blood urea nitrogen 18 mg/dL 7-18 Blood Urea Nitro gen [place] ([facility]) glucose, fasting 181 mg/dL 70-100 Above high normal Glucose, Fas ting [place] ([facility]) glomerular filtration rate >60 Below low normal Mariza merular Filtration Rate [place] ([facility]) creatinine for GFR 1.28 mg/dL 0.55-1.30 Creatinine for GF R [place] ([facility]) sodium level 141 mEq/L 136-145 Sodium Level [place] ([facility]) potassium serum 3.4 mEq/L 3.5-5.1 Below low normal Potassium Seru m [place] ([facility]) chloride level 112 mEq/L 98-107 Above high normal Chloride Level [place] ([facility]) carbon dioxide level 18 mEq/L 21-32 Below low normal Carbon Di oxide Level [place] ([facility]) anion gap 11 mEq/L 8-16 Anion Gap [place] ([facility]) calcium level 8.6 mg/dL 8.5-10.1 Calcium Level [place] ( [facility]) ID Date Data Source [id number] 12/11/2020 01:05:00 PM EST [place] ([facility]) Name Value Range Interpretation Code Description Data Claribel rce(s) Supporting Document(s) venous pH 7.238 units 7.330-7.430 Below low normal Venous pH [place] ([facility]) venous partial pressure CO2 35.2 mmHg 38.0-50.0 Below low nor mal Venous Partial Pressure CO2 [place] ([facility]) venous partial pressure O2 105.8 mmHg 30.0-50.0 Above high nor mal Venous Partial Pressure O2 [place] ([facility]) venous total CO2 15.8 mEq/L 24.0-28.0 Below low normal Venous Total CO2 [place] ([facility]) venous HCO3 14.7 mEq/L 23.0-27.0 Below low normal Venous HCO3 [place] ([facility]) venous base excess -2.0-2.0 Below low normal Venous Base Excess [place] ([facility]) venous standard HCO3 15.2 mEq/L Venous Standard HCO3 [place] ([facility]) venous O2 saturation 97.8 % 60.0-80.0 Above high normal Venous O 2 Saturation [place] ([facility]) ID Date Data Source [id number] 12/11/2020 01:05:00 PM EST [place] ([facility]) Name Value Range Interpretation Code Description Data Claribel rce(s) Supporting Document(s) osmolality serum 306 mOsm/kg 275-295 Above high normal Osmolality Serum [place] ([facility]) ID Date Data Source [id number] 12/11/2020 01:05:00 PM EST [place] ([facility]) Name Value Range Interpretation Code Description Data Clar[place] rce(s) Supporting Document(s) phosphorus level 2.2 mg/dL 2.5-4.9 Below low normal Phosphorus Le karma [place] ([facility]) ID Date Data Source [id number] 12/11/2020 01:05:00 PM EST [place] ([facility]) Name Value Range Interpretation Code Description Data [place] rce(s) Supporting Document(s) glucose, fasting 181 mg/dL 70-100 Above high normal Glucose, Fas ting [place] ([facility]) blood urea nitrogen 18 mg/dL 7-18 Blood Urea Nitro gen [place] ([facility]) glomerular filtration rate >60 Below low normal Mariza merular Filtration Rate [place] ([facility]) creatinine for GFR 1.28 mg/dL 0.55-1.30 Creatinine for GF R [place] ([facility]) sodium level 141 mEq/L 136-145 Sodium Level [place] ([facility]) potassium serum 3.4 mEq/L 3.5-5.1 Below low normal Potassium Seru m [place] ([facility]) chloride level 112 mEq/L 98-107 Above high normal Chloride Level [place] ([facility]) carbon dioxide level 18 mEq/L 21-32 Below low normal Carbon Di oxide Level [place] ([facility]) anion gap 11 mEq/L 8-16 Anion Gap [place] ([facility]) calcium level 8.6 mg/dL 8.5-10.1 Calcium Level [place] ( [facility]) ID Date Data Source [id number] 12/11/2020 01:05:00 PM EST [place] ([facility]) Name Value Range Interpretation Code Description Data Clar[place] rce(s) Supporting Document(s) venous pH 7.238 units 7.330-7.430 Below low normal Venous pH [place] ([facility]) venous partial pressure CO2 35.2 mmHg 38.0-50.0 Below low nor mal Venous Partial Pressure CO2 [place] ([facility]) venous total CO2 15.8 mEq/L 24.0-28.0 Below low normal Venous Total CO2 [place] ([facility]) venous partial pressure O2 105.8 mmHg 30.0-50.0 Above high nor mal Venous Partial Pressure O2 [place] ([facility]) venous HCO3 14.7 mEq/L 23.0-27.0 Below low normal Venous HCO3 [place] ([facility]) venous base excess -2.0-2.0 Below low normal Venous Base Excess [place] ([facility]) venous O2 saturation 97.8 % 60.0-80.0 Above high normal Venous O 2 Saturation [place] ([facility]) venous standard HCO3 15.2 mEq/L Venous Standard HCO3 [place] ([facility]) ID Date Data Source [id number] 12/11/2020 01:05:00 PM EST [place] ([facility]) Name Value Range Interpretation Code Description Data Clar[place] rce(s) Supporting Document(s) osmolality serum 306 mOsm/kg 275-295 Above high normal Osmolality Serum [place] ([facility]) ID Date Data Source [id number] 12/11/2020 01:05:00 PM EST [place] ([facility]) Name Value Range Interpretation Code Description Data Claribel rce(s) Supporting Document(s) phosphorus level 2.2 mg/dL 2.5-4.9 Below low normal Phosphorus Le karma [place] ([facility]) ID Date Data Source [id number] 12/11/2020 01:05:00 PM EST [place] ([facility]) Name Value Range Interpretation Code Description Data [place] rce(s) Supporting Document(s) glucose, fasting 181 mg/dL 70-100 Above high normal Glucose, Fas ting [place] ([facility]) blood urea nitrogen 18 mg/dL 7-18 Blood Urea Nitro gen [place] ([facility]) creatinine for GFR 1.28 mg/dL 0.55-1.30 Creatinine for GF R [place] ([facility]) glomerular filtration rate >60 Below low normal Mariza merular Filtration Rate [place] ([facility]) potassium serum 3.4 mEq/L 3.5-5.1 Below low normal Potassium Seru m [place] ([facility]) sodium level 141 mEq/L 136-145 Sodium Level [place] ([facility]) chloride level 112 mEq/L 98-107 Above high normal Chloride Level [place] ([facility]) carbon dioxide level 18 mEq/L 21-32 Below low normal Carbon Di oxide Level [place] ([facility]) anion gap 11 mEq/L 8-16 Anion Gap [place] ([facility]) calcium level 8.6 mg/dL 8.5-10.1 Calcium Level [place] ( [facility]) ID Date Data Source [id number] 12/11/2020 01:05:00 PM EST [place] ([facility]) Name Value Range Interpretation Code Description Data Claribel rce(s) Supporting Document(s) venous pH 7.238 units 7.330-7.430 Below low normal Venous pH [place] ([facility]) venous partial pressure CO2 35.2 mmHg 38.0-50.0 Below low nor mal Venous Partial Pressure CO2 [place] ([facility]) venous partial pressure O2 105.8 mmHg 30.0-50.0 Above high nor mal Venous Partial Pressure O2 [place] ([facility]) venous total CO2 15.8 mEq/L 24.0-28.0 Below low normal Venous Total CO2 [place] ([facility]) venous HCO3 14.7 mEq/L 23.0-27.0 Below low normal Venous HCO3 [place] ([facility]) venous base excess -2.0-2.0 Below low normal Venous Base Excess [place] ([facility]) venous O2 saturation 97.8 % 60.0-80.0 Above high normal Venous O 2 Saturation [place] ([facility]) venous standard HCO3 15.2 mEq/L Venous Standard HCO3 [place] ([facility]) ID Date Data Source [id number] 12/11/2020 01:05:00 PM EST [place] ([facility]) Name Value Range Interpretation Code Description Data Claribel rce(s) Supporting Document(s) osmolality serum 306 mOsm/kg 275-295 Above high normal Osmolality Serum [place] ([facility]) ID Date Data Source [id number] 12/11/2020 01:05:00 PM EST [place] ([facility]) Name Value Range Interpretation Code Description Data Claribel rce(s) Supporting Document(s) phosphorus level 2.2 mg/dL 2.5-4.9 Below low normal Phosphorus Le karma [place] ([facility]) ID Date Data Source [id number] 12/11/2020 01:05:00 PM EST [place] ([facility]) Name Value Range Interpretation Code Description Data Claribel rce(s) Supporting Document(s) glucose, fasting 181 mg/dL 70-100 Above high normal Glucose, Fas ting [place] ([facility]) blood urea nitrogen 18 mg/dL 7-18 Blood Urea Nitro gen [place] ([facility]) creatinine for GFR 1.28 mg/dL 0.55-1.30 Creatinine for GF R [place] ([facility]) sodium level 141 mEq/L 136-145 Sodium Level [place] ([facility]) glomerular filtration rate >60 Below low normal Mariza merular Filtration Rate [place] ([facility]) potassium serum 3.4 mEq/L 3.5-5.1 Below low normal Potassium Seru m [place] ([facility]) chloride level 112 mEq/L 98-107 Above high normal Chloride Level [place] ([facility]) carbon dioxide level 18 mEq/L 21-32 Below low normal Carbon Di oxide Level [place] ([facility]) anion gap 11 mEq/L 8-16 Anion Gap [place] ([facility]) calcium level 8.6 mg/dL 8.5-10.1 Calcium Level [place] ( [facility]) ID Date Data Source [id number] 12/11/2020 01:05:00 PM EST [place] ([facility]) Name Value Range Interpretation Code Description Data Claribel rce(s) Supporting Document(s) venous pH 7.238 units 7.330-7.430 Below low normal Venous pH [place] ([facility]) venous partial pressure CO2 35.2 mmHg 38.0-50.0 Below low nor mal Venous Partial Pressure CO2 [place] ([facility]) venous partial pressure O2 105.8 mmHg 30.0-50.0 Above high nor mal Venous Partial Pressure O2 [place] ([facility]) venous HCO3 14.7 mEq/L 23.0-27.0 Below low normal Venous HCO3 [place] ([facility]) venous total CO2 15.8 mEq/L 24.0-28.0 Below low normal Venous Total CO2 [place] ([facility]) venous base excess -2.0-2.0 Below low normal Venous Base Excess [place] ([facility]) venous standard HCO3 15.2 mEq/L Venous Standard HCO3 [place] ([facility]) venous O2 saturation 97.8 % 60.0-80.0 Above high normal Venous O 2 Saturation [place] ([facility]) ID Date Data Source [id number] 12/11/2020 01:05:00 PM EST [place] ([facility]) Name Value Range Interpretation Code Description Data Claribel rce(s) Supporting Document(s) osmolality serum 306 mOsm/kg 275-295 Above high normal Osmolality Serum [place] ([facility]) ID Date Data Source [id number] 12/11/2020 01:05:00 PM EST [place] ([facility]) Name Value Range Interpretation Code Description Data Claribel rce(s) Supporting Document(s) phosphorus level 2.2 mg/dL 2.5-4.9 Below low normal Phosphorus Le karma [place] ([facility]) ID Date Data Source [id number] 12/11/2020 01:05:00 PM EST [place] ([facility]) Name Value Range Interpretation Code Description Data Claribel rce(s) Supporting Document(s) blood urea nitrogen 18 mg/dL 7-18 Blood Urea Nitro gen [place] ([facility]) glucose, fasting 181 mg/dL 70-100 Above high normal Glucose, Fas ting [place] ([facility]) creatinine for GFR 1.28 mg/dL 0.55-1.30 Creatinine for GF R [place] ([facility]) glomerular filtration rate >60 Below low normal Mariza merular Filtration Rate [place] ([facility]) sodium level 141 mEq/L 136-145 Sodium Level [place] (No [facility]) chloride level 112 mEq/L 98-107 Above high normal Chloride Level [place] ([facility]) potassium serum 3.4 mEq/L 3.5-5.1 Below low normal Potassium Seru m [place] ([facility]) anion gap 11 mEq/L 8-16 Anion Gap [place] ([facility]) carbon dioxide level 18 mEq/L 21-32 Below low normal Carbon Di oxide Level [place] ([facility]) calcium level 8.6 mg/dL 8.5-10.1 Calcium Level [place] ( [facility]) ID Date Data Source [id number] 12/11/2020 01:05:00 PM EST [place] ([facility]) Name Value Range Interpretation Code Description Data Claribel rce(s) Supporting Document(s) venous pH 7.238 units 7.330-7.430 Below low normal Venous pH [facility]) venous partial pressure CO2 35.2 mmHg 38.0-50.0 Below low nor mal Venous Partial Pressure CO2 [place] ([facility]) venous partial pressure O2 105.8 mmHg 30.0-50.0 Above high nor mal Venous Partial Pressure O2 [facility]) venous total CO2 15.8 mEq/L 24.0-28.0 Below low normal [facility] venous base excess -2.0-2.0 Below low normal Venous Base Excess [place] ([facility]) venous HCO3 14.7 mEq/L 23.0-27.0 Below low normal Venous HCO3 [place] ([facility]) venous standard HCO3 15.2 mEq/L Venous Standard HCO3 [place] ([facility]) venous O2 saturation 97.8 % 60.0-80.0 Above high normal Venous O 2 Saturation [place] ([facility]) ID Date Data Source [id number] 12/11/2020 12:13:00 PM EST [place] ([facility]) Name Value Range Interpretation Code Description Data Claribel rce(s) Supporting Document(s) bedside glucose 162 mg/dL 70-105 Above high normal Bedside Gluco se [place] ([facility]) ID Date Data Source [id number] 12/11/2020 12:13:00 PM EST [place] ([facility]) Name Value Range Interpretation Code Description Data Claribel rce(s) Supporting Document(s) bedside glucose 162 mg/dL 70-105 Above high normal Bedside Gluco se [place] ([facility]) ID Date Data Source [id number] 12/11/2020 12:13:00 PM EST [place] ([facility]) Name Value Range Interpretation Code Description Data Claribel rce(s) Supporting Document(s) bedside glucose 162 mg/dL 70-105 Above high normal Bedside Gluco se [place] ([facility]) ID Date Data Source [id number] 12/11/2020 12:13:00 PM EST [place] ([facility]) Name Value Range Interpretation Code Description Data Claribel rce(s) Supporting Document(s) bedside glucose 162 mg/dL 70-105 Above high normal [facility] Date Data Source [id number] 12/11/2020 12:13:00 PM [facility] Name Value Range Interpretation Code Description Data Claribel rce(s) Supporting Document(s) bedside glucose 162 mg/dL 70-105 Above high normal Bedside Gluco se [place] ([facility]) ID Date Data Source [id number] 12/11/2020 12:13:00 PM EST [place] ([facility]) Name Value Range Interpretation Code Description Data Claribel rce(s) Supporting Document(s) bedside glucose 162 mg/dL 70-105 Above high normal Bedside Gluco se [place] ([facility]) ID Date Data Source [id number] 12/11/2020 11:07:00 AM EST [place] ([facility]) Name Value Range Interpretation Code Description Data Claribel rce(s) Supporting Document(s) bedside glucose 146 mg/dL 70-105 Above high normal Bedside Gluco se [place] ([facility]) ID Date Data Source [id number] 12/11/2020 11:07:00 AM EST [place] ([facility]) Name Value Range Interpretation Code Description Data Claribel rce(s) Supporting Document(s) bedside glucose 146 mg/dL 70-105 Above high normal Bedside Gluco se [place] ([facility]) ID Date Data Source [id number] 12/11/2020 11:07:00 AM EST [place] ([facility]) Name Value Range Interpretation Code Description Data Claribel rce(s) Supporting Document(s) bedside glucose 146 mg/dL 70-105 Above high normal Bedside Gluco se [place] ([facility]) ID Date Data Source [id number] 12/11/2020 11:07:00 AM EST [place] ([facility]) Name Value Range Interpretation Code Description Data Claribel rce(s) Supporting Document(s) bedside glucose 146 mg/dL 70-105 Above high normal [facility] ID Date Data Source [id number] 12/11/2020 11:07:00 AM EST [place] ([facility]) Name Value Range Interpretation Code Description Data Claribel rce(s) Supporting Document(s) bedside glucose 146 mg/dL 70-105 Above high normal Bedside Gluco se [place] ([facility]) ID Date Data Source [id number] 12/11/2020 11:07:00 AM EST [place] ([facility]) Name Value Range Interpretation Code Description Data Claribel rce(s) Supporting Document(s) bedside glucose 146 mg/dL 70-105 Above high normal Bedside Gluco se [place] ([facility]) ID Date Data Source [id number] 12/11/2020 10:19:00 AM EST [place] ([facility]) Name Value Range Interpretation Code Description Data Claribel rce(s) Supporting Document(s) bedside glucose 159 mg/dL 70-105 Above high normal Bedside Gluco se [place] ([facility]) ID Date Data Source [id number] 12/11/2020 10:19:00 AM EST [place] ([facility]) Name Value Range Interpretation Code Description Data Claribel rce(s) Supporting Document(s) bedside glucose 159 mg/dL 70-105 Above high normal Bedside Gluco se [place] ([facility]) ID Date Data Source [id number] 12/11/2020 10:19:00 AM EST [place] ([facility]) Name Value Range Interpretation Code Description Data Claribel rce(s) Supporting Document(s) bedside glucose 159 mg/dL 70-105 Above high normal Bedside Gluco se [place] ([facility]) ID Date Data Source [id number] 12/11/2020 10:19:00 AM EST [place] ([facility]) Name Value Range Interpretation Code Description Data Claribel rce(s) Supporting Document(s) bedside glucose 159 mg/dL 70-105 Above high normal Bedside Gluco se [place] ([facility]) ID Date Data Source [id number] 12/11/2020 10:19:00 AM [facility] Name Value Range Interpretation Code Description Data Claribel rce(s) Supporting Document(s) bedside glucose 159 mg/dL 70-105 Above high normal [facility]side [facility] ID Date Data Source [id number] 12/11/2020 10:19:00 AM EST [facility] Name Value Range Interpretation Code Description Data Claribel rce(s) Supporting Document(s) bedside glucose 159 mg/dL 70-105 Above high normal Bedside Gluco se [facility]) ID Date Data Source [id number] 12/11/2020 09:01:00 AM EST [facility]) Name Value Range Interpretation Code Description Data Claribel rce(s) Supporting Document(s) bedside glucose 189 mg/dL 70-105 Above high normal Bedside Gluco se [facility]) ID Date Data Source [id number] 12/11/2020 09:01:00 AM [facility] Name Value Range Interpretation Code Description Data Claribel rce(s) Supporting Document(s) bedside glucose 189 mg/dL 70-105 Above high normal Bedside Gluco se [facility]) ID Date Data Source [id number] 12/11/2020 09:01:00 AM [facility] Name Value Range Interpretation Code Description Data Claribel rce(s) Supporting Document(s) bedside glucose 189 mg/dL 70-105 Above high normal [facility]side [facility] ID Date Data Source [id number] 12/11/2020 09:01:00 AM EST [place] ([facility]) Name Value Range Interpretation Code Description Data Claribel rce(s) Supporting Document(s) bedside glucose 189 mg/dL 70-105 Above high normal Bedside Gluco se [place] ([facility]) ID Date Data Source [id number] 12/11/2020 09:01:00 AM EST [place] ([facility]) Name Value Range Interpretation Code Description Data Claribel rce(s) Supporting Document(s) bedside glucose 189 mg/dL 70-105 Above high normal [facility]side [facility] ID Date Data Source [id number] 12/11/2020 09:01:00 AM EST [place] [facility]) Name Value Range Interpretation Code Description Data Claribel rce(s) Supporting Document(s) bedside glucose 189 mg/dL 70-105 Above high normal Bedside Gluco se [place] ([facility]) ID Date Data Source [id number] 12/11/2020 08:13:00 AM EST [place] [facility]) Name Value Range Interpretation Code Description Data Claribel rce(s) Supporting Document(s) bedside glucose 168 mg/dL 70-105 Above high normal Bedside Gluco se [place] ([facility]) ID Date Data Source [id number] 12/11/2020 08:13:00 AM [facility] Name Value Range Interpretation Code Description Data Claribel rce(s) Supporting Document(s) bedside glucose 168 mg/dL 70-105 Above high normal [facility]side [facility] ID Date Data Source [id number] 12/11/2020 08:13:00 AM EST [facility] Name Value Range Interpretation Code Description Data Claribel rce(s) Supporting Document(s) bedside glucose 168 mg/dL 70-105 Above high normal Bedside Gluco se [place] ([facility]) ID Date Data Source [id number] 12/11/2020 08:13:00 AM EST [place] ([facility]) Name Value Range Interpretation Code Description Data Claribel rce(s) Supporting Document(s) bedside glucose 168 mg/dL 70-105 Above high normal Bedside Gluco se [place] ([facility]) ID Date Data Source [id number] 12/11/2020 08:13:00 AM EST [facility] [facility]) Name Value Range Interpretation Code Description Data Claribel rce(s) Supporting Document(s) bedside glucose 168 mg/dL 70-105 Above high normal Bedside Gluco se [place] ([facility]) ID Date Data Source [id number] 12/11/2020 08:13:00 AM [facility] Name Value Range Interpretation Code Description Data Claribel rce(s) Supporting Document(s) bedside glucose 168 mg/dL 70-105 Above high normal Bedside Gluco se [place] ([facility]) ID Date Data Source [id number] 12/11/2020 07:57:00 AM EST [place] [facility]) Name Value Range Interpretation Code Description Data Claribel rce(s) Supporting Document(s) phosphorus level 1.6 mg/dL 2.5-4.9 Below low normal Phosphorus Le karma [place] ([facility]) ID Date Data Source [id number] 12/11/2020 07:57:00 AM EST [place] [facility]) Name Value Range Interpretation Code Description Data Claribel rce(s) Supporting Document(s) glucose, fasting 178 mg/dL 70-100 Above high normal Glucose, Fas ting [place] ([facility]) blood urea nitrogen 22 mg/dL 7-18 Above high normal Blood Ure a Nitrogen [place] ([facility]) creatinine for GFR 1.43 mg/dL 0.55-1.30 Above high normal Creatinine for GFR [place] ([facility]) glomerular filtration rate >60 Below low normal Mariza merular Filtration Rate [place] ([facility]) sodium level 141 mEq/L 136-145 Sodium Level [place] ([facility]) chloride level 112 mEq/L 98-107 Above high normal Chloride Level [place] ([facility]) potassium serum 3.7 mEq/L 3.5-5.1 Potassium Serum [place] ([facility]) carbon dioxide level 17 mEq/L 21-32 Below low normal Carbon Di oxide Level [place] ([facility]) anion gap 12 mEq/L 8-16 Anion Gap [place] ([facility]) calcium level 8.8 mg/dL 8.5-10.1 Calcium Level [place] ( [facility]) ID Date Data Source [id number] 12/11/2020 07:57:00 AM EST [place] ([facility]) Name Value Range Interpretation Code Description Data Claribel rce(s) Supporting Document(s) phosphorus level 1.6 mg/dL 2.5-4.9 Below low normal Phosphorus Le karma [place] ([facility]) ID Date Data Source [id number] 12/11/2020 07:57:00 AM EST [place] ([facility]) Name Value Range Interpretation Code Description Data Claribel rce(s) Supporting Document(s) glucose, fasting 178 mg/dL 70-100 Above high normal Glucose, Fas ting [place] ([facility]) blood urea nitrogen 22 mg/dL 7-18 Above high normal Blood Ure a Nitrogen [place] ([facility]) creatinine for GFR 1.43 mg/dL 0.55-1.30 Above high normal Creatinine for GFR [place] ([facility]) glomerular filtration rate >60 Below low normal Mariza merular Filtration Rate [place] ([facility]) potassium serum 3.7 mEq/L 3.5-5.1 Potassium Serum [place] ([facility]) sodium level 141 mEq/L 136-145 Sodium Level [place] ([facility]) chloride level 112 mEq/L 98-107 Above high normal Chloride Level [place] ([facility]) carbon dioxide level 17 mEq/L 21-32 Below low normal Carbon Di oxide Level [place] ([facility]) anion gap 12 mEq/L 8-16 Anion Gap [place] ([facility]) calcium level 8.8 mg/dL 8.5-10.1 Calcium Level [place] ( [facility]) ID Date Data Source [id number] 12/11/2020 07:57:00 AM [facility] Name Value Range Interpretation Code Description Data Claribel rce(s) Supporting Document(s) phosphorus level 1.6 mg/dL 2.5-4.9 Below low normal Phosphorus Le karma [place] ([facility]) ID Date Data Source [id number] 12/11/2020 07:57:00 AM EST [place] ([facility]) Name Value Range Interpretation Code Description Data Claribel rce(s) Supporting Document(s) glucose, fasting 178 mg/dL 70-100 Above high normal Glucose, Fas ting [place] ([facility]) creatinine for GFR 1.43 mg/dL 0.55-1.30 Above high normal Creatinine for GFR [place] ([facility]) blood urea nitrogen 22 mg/dL 7-18 Above high normal Blood Ure a Nitrogen [place] ([facility]) glomerular filtration rate >60 Below low normal Mariza merular Filtration Rate [place] ([facility]) sodium level 141 mEq/L 136-145 Sodium Level [place] ([facility]) potassium serum 3.7 mEq/L 3.5-5.1 Potassium Serum [place] ([facility]) chloride level 112 mEq/L 98-107 Above high normal Chloride Level [place] ([facility]) carbon dioxide level 17 mEq/L 21-32 Below low normal Carbon Di oxide Level [place] ([facility]) calcium level 8.8 mg/dL 8.5-10.1 Calcium Level [place] ( [facility]) anion gap 12 mEq/L 8-16 Anion Gap [place] ([facility]) ID Date Data Source [id number] 12/11/2020 07:57:00 AM EST [place] ([facility]) Name Value Range Interpretation Code Description Data Claribel rce(s) Supporting Document(s) phosphorus level 1.6 mg/dL 2.5-4.9 Below low normal Phosphorus Le karma [place] ([facility]) ID Date Data Source [id number] 12/11/2020 07:57:00 AM EST [place] ([facility]) Name Value Range Interpretation Code Description Data Claribel rce(s) Supporting Document(s) glucose, fasting 178 mg/dL 70-100 Above high normal Glucose, Fas ting [place] ([facility]) blood urea nitrogen 22 mg/dL 7-18 Above high normal Blood Ure a Nitrogen [place] ([facility]) creatinine for GFR 1.43 mg/dL 0.55-1.30 Above high normal Creatinine for GFR [place] ([facility]) glomerular filtration rate >60 Below low normal Mariza merular Filtration Rate [place] ([facility]) sodium level 141 mEq/L 136-145 Sodium Level [place] ([facility]) potassium serum 3.7 mEq/L 3.5-5.1 Potassium Serum [place] ([facility]) chloride level 112 mEq/L 98-107 Above high normal Chloride Level [place] ([facility]) carbon dioxide level 17 mEq/L 21-32 Below low normal Carbon Di oxide Level [place] ([facility]) anion gap 12 mEq/L 8-16 Anion Gap [place] ([facility]) calcium level 8.8 mg/dL 8.5-10.1 Calcium Level [place] ( [facility]) ID Date Data Source [id number] 12/11/2020 07:57:00 AM EST [place] ([facility]) Name Value Range Interpretation Code Description Data Claribel rce(s) Supporting Document(s) phosphorus level 1.6 mg/dL 2.5-4.9 Below low normal Phosphorus Le karma [place] ([facility]) ID Date Data Source [id number] 12/11/2020 07:57:00 AM EST [place] ([facility]) Name Value Range Interpretation Code Description Data Claribel rce(s) Supporting Document(s) glucose, fasting 178 mg/dL 70-100 Above high normal Glucose, Fas ting [place] ([facility]) creatinine for GFR 1.43 mg/dL 0.55-1.30 Above high normal Creatinine for GFR [place] ([facility]) blood urea nitrogen 22 mg/dL 7-18 Above high normal Blood Ure a Nitrogen [place] ([facility]) glomerular filtration rate >60 Below low normal Mariza merular Filtration Rate [place] ([facility]) sodium level 141 mEq/L 136-145 Sodium Level [place] ([facility]) chloride level 112 mEq/L 98-107 Above high normal Chloride Level [place] ([facility]) potassium serum 3.7 mEq/L 3.5-5.1 Potassium Serum [place] ([facility]) carbon dioxide level 17 mEq/L 21-32 Below low normal Carbon Di oxide Level [place] ([facility]) anion gap 12 mEq/L 8-16 Anion Gap [place] ([facility]) calcium level 8.8 mg/dL 8.5-10.1 Calcium Level [place] ( [facility]) ID Date Data Source [id number] 12/11/2020 07:57:00 AM EST [place] ([facility]) Name Value Range Interpretation Code Description Data Claribel rce(s) Supporting Document(s) phosphorus level 1.6 mg/dL 2.5-4.9 Below low normal Phosphorus Le karma [place] ([facility]) ID Date Data Source [id number] 12/11/2020 07:57:00 AM EST [place] ([facility]) Name Value Range Interpretation Code Description Data Claribel rce(s) Supporting Document(s) glucose, fasting 178 mg/dL 70-100 Above high normal Glucose, Fas ting [place] ([facility]) creatinine for GFR 1.43 mg/dL 0.55-1.30 Above high normal Creatinine for GFR [place] ([facility]) blood urea nitrogen 22 mg/dL 7-18 Above high normal Blood Ure a Nitrogen [place] ([facility]) sodium level 141 mEq/L 136-145 Sodium Level [place] ([facility]) glomerular filtration rate >60 Below low normal Mariza merular Filtration Rate [place] ([facility]) potassium serum 3.7 mEq/L 3.5-5.1 Potassium Serum ATH NA [facility]) chloride level 112 mEq/L 98-107 Above high normal Chloride Level [place] ([facility] anion gap 12 mEq/L 8-16 Anion Gap [place] ([facility]) carbon dioxide level 17 mEq/L 21-32 Below low normal Carbon Di oxide Level [place] ([facility]) calcium level 8.8 mg/dL 8.5-10.1 Calcium Level [place] ( [facility]) ID Date Data Source [id number] 12/11/2020 07:56:00 AM EST [place] ([facility]) Name Value Range Interpretation Code Description Data Claribel rce(s) Supporting Document(s) venous pH 7.210 units 7.330-7.430 Below low normal Venous pH [place] ([facility]) venous partial pressure O2 99.3 mmHg 30.0-50.0 Above high nor mal Venous Partial Pressure O2 [place] ([facility]) venous partial pressure CO2 34.6 mmHg 38.0-50.0 Below low nor mal Venous Partial Pressure CO2 [place] ([facility]) venous total CO2 14.6 mEq/L 24.0-28.0 Below low normal Venous Total CO2 [place] ([facility]) venous HCO3 13.5 mEq/L 23.0-27.0 Below low normal Venous HCO3 [place] ([facility]) venous base excess -2.0-2.0 Below low normal Venous Base Excess [place] ([facility]) venous standard HCO3 14.2 mEq/L Venous Standard HCO3 [place] ([facility]) venous O2 saturation 97.8 % 60.0-80.0 Above high normal Venous O 2 Saturation [place] ([facility]) ID Date Data Source [id number] 12/11/2020 07:56:00 AM EST [place] ([facility]) Name Value Range Interpretation Code Description Data Claribel rce(s) Supporting Document(s) venous pH 7.210 units 7.330-7.430 Below low normal Venous pH [place] ([facility]) venous partial pressure CO2 34.6 mmHg 38.0-50.0 Below low nor mal Venous Partial Pressure CO2 [place] ([facility]) venous partial pressure O2 99.3 mmHg 30.0-50.0 Above high nor mal Venous Partial Pressure O2 [place] ([facility]) venous total CO2 14.6 mEq/L 24.0-28.0 Below low normal Venous Total CO2 [place] ([facility]) venous HCO3 13.5 mEq/L 23.0-27.0 Below low normal Venous HCO3 [facility] [facility]) venous base excess -2.0-2.0 Below low normal Venous Base Excess [facility] ([facility] venous standard HCO3 14.2 mEq/L Venous Standard HCO3 [facility] ([facility]) venous O2 saturation 97.8 % 60.0-80.0 Above high normal Venous O 2 Saturation [facility] ([facility]) ID Date Data Source [id number] 12/11/2020 07:56:00 AM EST [facility] ([facility]) Name Value Range Interpretation Code Description Data Claribel rce(s) Supporting Document(s) venous pH 7.210 units 7.330-7.430 Below low normal Venous pH [facility] ([facility]) venous partial pressure CO2 34.6 mmHg 38.0-50.0 Below low nor mal Venous Partial Pressure CO2 [facility] ([facility]) venous partial pressure O2 99.3 mmHg 30.0-50.0 Above high nor mal Venous Partial Pressure O2 [facility] ([facility]) venous total CO2 14.6 mEq/L 24.0-28.0 Below low normal Venous Total CO2 [facility] ([facility]) venous HCO3 13.5 mEq/L 23.0-27.0 Below low normal Venous HCO3 [facility] ([facility]) venous standard HCO3 14.2 mEq/L Venous Standard HCO3 [facility] ([facility]) venous base excess -2.0-2.0 Below low normal Venous Base Excess [facility] ([facility]) venous O2 saturation 97.8 % 60.0-80.0 Above high normal Venous O 2 Saturation [place] ([facility]) ID Date Data Source [id number] 12/11/2020 07:56:00 AM EST [place] ([facility]) Name Value Range Interpretation Code Description Data Claribel rce(s) Supporting Document(s) venous partial pressure CO2 34.6 mmHg 38.0-50.0 Below low nor mal Venous Partial Pressure CO2 [facility] ([facility]) venous pH 7.210 units 7.330-7.430 Below low normal Venous pH [place] ([facility]) venous total CO2 14.6 mEq/L 24.0-28.0 Below low normal Venous Total CO2 [facility] ([facility]) venous partial pressure O2 99.3 mmHg 30.0-50.0 Above high nor mal Venous Partial Pressure O2 [place] ([facility]) venous HCO3 13.5 mEq/L 23.0-27.0 Below low normal Venous HCO3 [facility] ([facility]) venous base excess -2.0-2.0 Below low normal Venous Base Excess [facility] ([facility]) venous standard HCO3 14.2 mEq/L Venous Standard HCO3 [facility] ([facility]) venous O2 saturation 97.8 % 60.0-80.0 Above high normal Venous O 2 Saturation [facility] ([facility]) ID Date Data Source [id number] 12/11/2020 07:56:00 AM EST [place] ([facility]) Name Value Range Interpretation Code Description Data Claribel rce(s) Supporting Document(s) venous pH 7.210 units 7.330-7.430 Below low normal Venous pH [facility] ([facility]) venous partial pressure O2 99.3 mmHg 30.0-50.0 Above high nor mal Venous Partial Pressure O2 [facility] ([facility]) venous partial pressure CO2 34.6 mmHg 38.0-50.0 Below low nor mal Venous Partial Pressure CO2 [place] ([facility]) venous total CO2 14.6 mEq/L 24.0-28.0 Below low normal Venous Total CO2 [facility] ([facility]) venous base excess -2.0-2.0 Below low normal Venous Base Excess [facility] ([facility]) venous HCO3 13.5 mEq/L 23.0-27.0 Below low normal Venous HCO3 [facility] ([facility]) venous standard HCO3 14.2 mEq/L Venous Standard HCO3 [facility] ([facility]) venous O2 saturation 97.8 % 60.0-80.0 Above high normal Venous O 2 Saturation [place] ([facility]) ID Date Data Source [id number] 12/11/2020 07:56:00 AM EST [facility] ([facility]) Name Value Range Interpretation Code Description Data Claribel rce(s) Supporting Document(s) venous pH 7.210 units 7.330-7.430 Below low normal Venous pH [facility] ([facility]) venous partial pressure O2 99.3 mmHg 30.0-50.0 Above high nor mal Venous Partial Pressure O2 [facility] ([facility]) venous partial pressure CO2 34.6 mmHg 38.0-50.0 Below low nor mal Venous Partial Pressure CO2 [facility] ([facility]) venous total CO2 14.6 mEq/L 24.0-28.0 Below low normal Venous Total CO2 [facility] ([facility]) venous base excess -2.0-2.0 Below low normal Venous Base Excess [facility] ([facility]) venous HCO3 13.5 mEq/L 23.0-27.0 Below low normal Venous HCO3 [place] ([facility]) venous O2 saturation 97.8 % 60.0-80.0 Above high normal Venous O 2 Saturation [place] ([facility]) venous standard HCO3 14.2 mEq/L Venous Standard HCO3 [place] ([facility]) ID Date Data Source [id number] 12/11/2020 07:13:00 AM EST [place] ([facility]) Name Value Range Interpretation Code Description Data Claribel rce(s) Supporting Document(s) bedside glucose 168 mg/dL 70-105 Above high normal Bedside Gluco se [place] ([facility]) ID Date Data Source [id number] 12/11/2020 07:13:00 AM EST [place] ([facility]) Name Value Range Interpretation Code Description Data Claribel rce(s) Supporting Document(s) bedside glucose 168 mg/dL 70-105 Above high normal Bedside Gluco se [place] ([facility]) ID Date Data Source [id number] 12/11/2020 07:13:00 AM EST [facility] ([facility]) Name Value Range Interpretation Code Description Data Claribel rce(s) Supporting Document(s) bedside glucose 168 mg/dL 70-105 Above high normal Bedside Gluco se [place] ([facility]) ID Date Data Source [id number] 12/11/2020 07:13:00 AM EST [facility] ([facility]) Name Value Range Interpretation Code Description Data Claribel rce(s) Supporting Document(s) bedside glucose 168 mg/dL 70-105 Above high normal Bedside Gluco se [facility] ([facility]) ID Date Data Source [id number] 12/11/2020 07:13[facility] Name Value Range Interpretation Code Description Data Claribel rce(s) Supporting Document(s) bedside glucose 168 mg/dL 70-105 Above high normal Bedside Gluco se [facility] ([facility]) ID Date Data Source [id number] 12/11/2020 07:13:00 AM EST [place] ([facility]) Name Value Range Interpretation Code Description Data Claribel rce(s) Supporting Document(s) bedside glucose 168 mg/dL 70-105 Above high normal Bedside Gluco se [place] ([facility]) ID Date Data Source [id number] 12/11/2020 06:29:00 AM EST [place] ([facility]) Name Value Range Interpretation Code Description Data Claribel rce(s) Supporting Document(s) bedside glucose 172 mg/dL 70-105 Above high normal Bedside Gluco se [facility]) ID Date Data Source [id number] 12/11/2020 06:29:00 [facility] Name Value Range Interpretation Code Description Data Claribel rce(s) Supporting Document(s) bedside glucose 172 mg/dL 70-105 Above high normal Bedside Gluco se [place] ([facility]) ID Date Data Source [id number] 12/11/2020 06:29:00 AM [facility] Name Value Range Interpretation Code Description Data Claribel rce(s) Supporting Document(s) bedside glucose 172 mg/dL 70-105 Above high normal Bedside Gluco se [place] ([facility]) ID Date Data Source [id number] 12/11/2020 06:29:00 AM EST [facility]) Name Value Range Interpretation Code Description Data Claribel rce(s) Supporting Document(s) bedside glucose 172 mg/dL 70-105 Above high normal [facility] ID Date Data Source [id number] 12/11/2020 06:29:00 AM EST [place] ([facility]) Name Value Range Interpretation Code Description Data Claribel rce(s) Supporting Document(s) bedside glucose 172 mg/dL 70-105 Above high normal Bedside Gluco se [place] ([facility]) ID Date Data Source [id number] 12/11/2020 06:29:00 AM EST [facility] ([facility]) Name Value Range Interpretation Code Description Data Claribel rce(s) Supporting Document(s) bedside glucose 172 mg/dL 70-105 Above high normal Bedside Gluco se [place] ([facility]) ID Date Data Source [id number] 12/11/2020 06:26:00 AM EST [place] ([facility]) Name Value Range Interpretation Code Description Data Claribel rce(s) Supporting Document(s) bedside glucose 116 mg/dL 70-105 Above high normal Bedside Gluco se [place] ([facility]) ID Date Data Source [id number] 12/11/2020 06:26:00 AM EST [place] ([facility]) Name Value Range Interpretation Code Description Data Claribel rce(s) Supporting Document(s) bedside glucose 116 mg/dL 70-105 Above high normal Bedside Gluco se [place] ([facility]) ID Date Data Source [id number] 12/11/2020 06:26:00 AM EST [place] ([facility]) Name Value Range Interpretation Code Description Data Claribel rce(s) Supporting Document(s) bedside glucose 116 mg/dL 70-105 Above high normal Bedside Gluco se [place] ([facility]) ID Date Data Source [id number] 12/11/2020 06:26:00 AM EST [place] ([facility]) Name Value Range Interpretation Code Description Data Claribel rce(s) Supporting Document(s) bedside glucose 116 mg/dL 70-105 Above high normal Bedside Gluco se [place] ([facility]) ID Date Data Source [id number] 12/11/2020 06:26:00 AM EST [place] ([facility]) Name Value Range Interpretation Code Description Data Claribel rce(s) Supporting Document(s) bedside glucose 116 mg/dL 70-105 Above high normal Bedside Gluco se [place] ([facility]) ID Date Data Source [id number] 12/11/2020 06:26:00 AM EST [place] ([facility]) Name Value Range Interpretation Code Description Data Claribel rce(s) Supporting Document(s) bedside glucose 116 mg/dL 70-105 Above high normal Bedside Gluco se [place] ([facility]) ID Date Data Source [id number] 12/11/2020 06:00:00 AM EST [place] ([facility]) Name Value Range Interpretation Code Description Data Claribel rce(s) Supporting Document(s) white blood count 7.7 10 4.0-10.0 White Blood Count [place] ([facility]) red blood count 3.91 10 4.00-5.40 Below low normal Red Blood Coun t [place] ([facility]) hemoglobin 11.4 g/dL 12.0-15.5 Below low normal Hemoglobin [place] ( [facility]) hematocrit 34.1 % 36.0-47.0 Below low normal Hematocrit [place] ( [facility]) mean corpuscular volume 87.2 fL 80.0-96.0 Mean Corpusc ular Volume [place] ([facility]) mean corpuscular HGB conc 33.4 g/dL 32.0-36.5 Mean Corpu scular HGB Conc [place] ([facility]) mean corpuscular hemoglobin 29.2 pg 27.0-33.0 Mean Cor puscular Hemoglobin [place] ([facility]) red cell distribution width 13.3 % 11.5-14.5 Red Cell Distribution Width [place] ([facility]) nucleated red blood cell % 0.0 % 0-0 Nucleated Red Blood Cell % [place] ([facility]) platelet count, automated 229 10 150-450 Platelet C ount, Automated [facility]) ID Date Data Source [id number] 12/11/2020 06:00:00 AM EST [place] ([facility]) Name Value Range Interpretation Code Description Data Claribel rce(s) Supporting Document(s) white blood count 7.7 10 4.0-10.0 White Blood Count [facility]) hemoglobin 11.4 g/dL 12.0-15.5 Below low normal Hemoglobin [place] ( [facility]) red blood count 3.91 10 4.00-5.40 Below low normal Red Blood Coun t [place] ([facility]) hematocrit 34.1 % 36.0-47.0 Below low normal Hematocrit [place] ( [facility]) mean corpuscular volume 87.2 fL 80.0-96.0 Mean Corpusc ular Volume [place] ([facility]) mean corpuscular hemoglobin 29.2 pg 27.0-33.0 Mean Cor puscular Hemoglobin [place] ([facility]) mean corpuscular HGB conc 33.4 g/dL 32.0-36.5 Mean Corpu scular HGB Conc [place] ([facility]) red cell distribution width 13.3 % 11.5-14.5 Red Cell Distribution Width [place] ([facility]) platelet count, automated 229 10 150-450 Platelet C ount, Automated [place] ([facility]) nucleated red blood cell % 0.0 % 0-0 Nucleated Red Blood Cell % [place] ([facility]) ID Date Data Source [id number] 12/11/2020 06:00:00 AM EST [place] ([facility]) Name Value Range Interpretation Code Description Data Claribel rce(s) Supporting Document(s) red blood count 3.91 10 4.00-5.40 Below low normal Red Blood Coun t [place] ([facility]) white blood count 7.7 10 4.0-10.0 White Blood Count [place] ([facility]) hemoglobin 11.4 g/dL 12.0-15.5 Below low normal Hemoglobin [place] ( [facility]) hematocrit 34.1 % 36.0-47.0 Below low normal Hematocrit [place] ( [facility]) mean corpuscular volume 87.2 fL 80.0-96.0 Mean Corpusc ular Volume [place] ([facility]) mean corpuscular HGB conc 33.4 g/dL 32.0-36.5 Mean Corpu scular HGB Conc [place] ([facility]) mean corpuscular hemoglobin 29.2 pg 27.0-33.0 Mean Cor puscular Hemoglobin [place] ([facility]) platelet count, automated 229 10 150-450 Platelet C ount, Automated [place] ([facility]) red cell distribution width 13.3 % 11.5-14.5 Red Cell Distribution Width [place] ([facility]) nucleated red blood cell % 0.0 % 0-0 Nucleated Red Blood Cell % [place] ([facility]) ID Date Data Source [id number] 12/11/2020 06:00:00 AM EST [place] ([facility]) Name Value Range Interpretation Code Description Data Claribel rce(s) Supporting Document(s) white blood count 7.7 10 4.0-10.0 White Blood Count [place] ([facility]) red blood count 3.91 10 4.00-5.40 Below low normal Red Blood Coun t [place] ([facility]) hemoglobin 11.4 g/dL 12.0-15.5 Below low normal Hemoglobin [place] ( [facility]) hematocrit 34.1 % 36.0-47.0 Below low normal Hematocrit [place] ( [facility]) mean corpuscular volume 87.2 fL 80.0-96.0 Mean Corpusc ular Volume [place] ([facility]) mean corpuscular hemoglobin 29.2 pg 27.0-33.0 Mean Cor puscular Hemoglobin [place] ([facility]) mean corpuscular HGB conc 33.4 g/dL 32.0-36.5 Mean Corpu scular HGB Conc [place] ([facility]) platelet count, automated 229 10 150-450 Platelet C ount, Automated [place] ([facility]) red cell distribution width 13.3 % 11.5-14.5 Red Cell Distribution Width [place] ([facility]) nucleated red blood cell % 0.0 % 0-0 Nucleated Red Blood Cell % [place] ([facility]) ID Date Data Source [id number] 12/11/2020 06:00:00 AM EST [place] ([facility]) Name Value Range Interpretation Code Description Data Claribel rce(s) Supporting Document(s) white blood count 7.7 10 4.0-10.0 White Blood Count [place] ([facility]) red blood count 3.91 10 4.00-5.40 Below low normal Red Blood Coun t [place] ([facility]) hemoglobin 11.4 g/dL 12.0-15.5 Below low normal Hemoglobin [place] ( [facility]) hematocrit 34.1 % 36.0-47.0 Below low normal Hematocrit [place] ( [facility]) mean corpuscular volume 87.2 fL 80.0-96.0 Mean Corpusc ular Volume [place] ([facility]) mean corpuscular hemoglobin 29.2 pg 27.0-33.0 Mean Cor puscular Hemoglobin [place] ([facility]) mean corpuscular HGB conc 33.4 g/dL 32.0-36.5 Mean Corpu scular HGB Conc [place] ([facility]) red cell distribution width 13.3 % 11.5-14.5 Red Cell Distribution Width [place] ([facility]) platelet count, automated 229 10 150-450 Platelet C ount, Automated [place] ([facility]) nucleated red blood cell % 0.0 % 0-0 Nucleated Red [facility] % [facility] Date Data Source [id number] 12/11/2020 06:00:00 AM EST [place] ([facility]) Name Value Range Interpretation Code Description Data Claribel rce(s) Supporting Document(s) white blood count 7.7 10 4.0-10.0 White Blood Count [place] ([facility]) red blood count 3.91 10 4.00-5.40 Below low normal Red Blood Coun t [place] ([facility]) hemoglobin 11.4 g/dL 12.0-15.5 Below low normal Hemoglobin [place] ( [facility]) mean corpuscular volume 87.2 fL 80.0-96.0 Mean Corpusc ular Volume [place] ([facility]) hematocrit 34.1 % 36.0-47.0 Below low normal Hematocrit [place] ( [facility]) mean corpuscular hemoglobin 29.2 pg 27.0-33.0 Mean Cor puscular Hemoglobin [place] ([facility]) mean corpuscular HGB conc 33.4 g/dL 32.0-36.5 Mean Corpu scular HGB Conc [place] ([facility]) red cell distribution width 13.3 % 11.5-14.5 Red Cell Distribution Width [place] ([facility]) platelet count, automated 229 10 150-450 Platelet C ount, Automated [place] ([facility]) nucleated red blood cell % 0.0 % 0-0 Nucleated Red Blood Cell % [place] ([facility]) ID Date Data Source [id number] 12/11/2020 05:26:00 AM EST [place] ([facility]) Name Value Range Interpretation Code Description Data Claribel rce(s) Supporting Document(s) bedside glucose 208 mg/dL 70-105 Above high normal Bedside Gluco se [place] ([facility]) ID Date Data Source [id number] 12/11/2020 05:26:00 AM EST [facility] [facility]) Name Value Range Interpretation Code Description Data Claribel rce(s) Supporting Document(s) bedside glucose 208 mg/dL 70-105 Above high normal Bedside Gluco se [place] ([facility]) ID Date Data Source [id number] 12/11/2020 05:26:00 AM EST [place] ([facility]) Name Value Range Interpretation Code Description Data Claribel rce(s) Supporting Document(s) bedside glucose 208 mg/dL 70-105 Above high normal Bedside Gluco se [place] ([facility]) ID Date Data Source [id number] 12/11/2020 05:26:00 AM EST [place] [facility]) Name Value Range Interpretation Code Description Data Claribel rce(s) Supporting Document(s) bedside glucose 208 mg/dL 70-105 Above high normal [facility] ID Date Data Source [id number] 12/11/2020 05:26:00 AM EST [facility] Name Value Range Interpretation Code Description Data Claribel rce(s) Supporting Document(s) bedside glucose 208 mg/dL 70-105 Above high normal Bedside Gluco se [place] ([facility]) ID Date Data Source [id number] 12/11/2020 05:26:00 AM EST [place] [facility]) Name Value Range Interpretation Code Description Data Claribel rce(s) Supporting Document(s) bedside glucose 208 mg/dL 70-105 Above high normal [facility]side [facility] ID Date Data Source [id number] 12/11/2020 03:55:00 AM EST [place] [facility]) Name Value Range Interpretation Code Description Data Claribel rce(s) Supporting Document(s) osmolality serum 310 mOsm/kg 275-295 Above high normal [facility]olality Serum [facility] ID Date Data Source [id number] 12/11/2020 03:55:00 AM EST [place] ([facility]) Name Value Range Interpretation Code Description Data Claribel rce(s) Supporting Document(s) phosphorus level 1.5 mg/dL 2.5-4.9 Below low normal Phosphorus Le karma [place] ([facility]) ID Date Data Source [id number] 12/11/2020 03:55:00 AM EST [place] ([facility]) Name Value Range Interpretation Code Description Data Claribel rce(s) Supporting Document(s) glucose, fasting 224 mg/dL 70-100 Above high normal Glucose, Fas ting [place] ([facility]) blood urea nitrogen 23 mg/dL 7-18 Above high normal Blood Ure a Nitrogen [place] ([facility]) creatinine for GFR 1.55 mg/dL 0.55-1.30 Above high normal Creatinine for GFR [place] ([facility]) glomerular filtration rate >60 Below low normal Mariza merular Filtration Rate [place] ([facility]) sodium level 141 mEq/L 136-145 Sodium Level [place] ([facility]) potassium serum 4.0 mEq/L 3.5-5.1 Potassium Serum ATH NA ([facility]) chloride level 112 mEq/L 98-107 Above high normal Chloride Level [place] ([facility]) carbon dioxide level 13 mEq/L 21-32 Below low normal Carbon Di oxide Level [place] ([facility]) anion gap 16 mEq/L 8-16 Anion Gap [place] ([facility]) calcium level 8.8 mg/dL 8.5-10.1 Calcium Level [place] ( [facility]) ID Date Data Source [id number] 12/11/2020 03:55:00 AM EST [place] ([facility]) Name Value Range Interpretation Code Description Data Claribel rce(s) Supporting Document(s) venous pH 7.221 units 7.330-7.430 Below low normal Venous pH [place] ([facility]) venous partial pressure CO2 30.1 mmHg 38.0-50.0 Below low nor mal Venous Partial Pressure CO2 [place] ([facility]) venous partial pressure O2 74.2 mmHg 30.0-50.0 Above high nor mal Venous Partial Pressure O2 [place] ([facility]) venous total CO2 13.0 mEq/L 24.0-28.0 Below low normal Venous Total CO2 [place] ([facility]) venous HCO3 12.1 mEq/L 23.0-27.0 Below low normal Venous HCO3 [place] ([facility] [facility]) venous base excess -2.0-2.0 Below low normal Venous Base Excess [place] ([facility]) venous standard HCO3 13.5 mEq/L Venous Standard HCO3 [place] ([facility]) venous O2 saturation 94.9 % 60.0-80.0 Above high normal Venous O 2 Saturation [place] ([facility]) ID Date Data Source [id number] 12/11/2020 03:55:00 AM EST [place] ([facility]) Name Value Range Interpretation Code Description Data Claribel rce(s) Supporting Document(s) osmolality serum 310 mOsm/kg 275-295 Above high normal Osmolality Serum [place] ([facility]) ID Date Data Source [id number] 12/11/2020 03:55:00 AM EST [place] ([facility]) Name Value Range Interpretation Code Description Data Claribel rce(s) Supporting Document(s) phosphorus level 1.5 mg/dL 2.5-4.9 Below low normal Phosphorus Le karma [place] ([facility]) ID Date Data Source [id number] 12/11/2020 03:55:00 AM EST [place] ([facility]) Name Value Range Interpretation Code Description Data Claribel rce(s) Supporting Document(s) blood urea nitrogen 23 mg/dL 7-18 Above high normal Blood Ure a Nitrogen [place] ([facility]) glucose, fasting 224 mg/dL 70-100 Above high normal Glucose, Fas ting [place] ([facility]) creatinine for GFR 1.55 mg/dL 0.55-1.30 Above high normal Creatinine for GFR [place] ([facility]) sodium level 141 mEq/L 136-145 Sodium Level [place] ([facility]) glomerular filtration rate >60 Below low normal Mariza merular Filtration Rate [place] ([facility]) chloride level 112 mEq/L 98-107 Above high normal Chloride Level [place] ([facility]) potassium serum 4.0 mEq/L 3.5-5.1 Potassium Serum [place] ([facility]) carbon dioxide level 13 mEq/L 21-32 Below low normal Carbon Di oxide Level [place] ([facility]) calcium level 8.8 mg/dL 8.5-10.1 Calcium Level [place] ( [facility]) anion gap 16 mEq/L 8-16 Anion Gap [place] ([facility]) ID Date Data Source [id number] 12/11/2020 03:55:00 AM EST [place] ([facility]) Name Value Range Interpretation Code Description Data Claribel rce(s) Supporting Document(s) venous pH 7.221 units 7.330-7.430 Below low normal Venous pH [place] ([facility]) venous partial pressure CO2 30.1 mmHg 38.0-50.0 Below low nor mal Venous Partial Pressure CO2 [place] ([facility]) venous total CO2 13.0 mEq/L 24.0-28.0 Below low normal Venous Total CO2 [place] ([facility]) venous partial pressure O2 74.2 mmHg 30.0-50.0 Above high nor mal Venous Partial Pressure O2 [place] ([facility]) venous HCO3 12.1 mEq/L 23.0-27.0 Below low normal Venous HCO3 [place] ([facility]) venous standard HCO3 13.5 mEq/L Venous Standard HCO3 [place] ([facility]) venous base excess -2.0-2.0 Below low normal Venous Base Excess [place] ([facility]) venous O2 saturation 94.9 % 60.0-80.0 Above high normal Venous O 2 Saturation [place] ([facility]) ID Date Data Source [id number] 12/11/2020 03:55:00 AM EST [place] ([facility]) Name Value Range Interpretation Code Description Data Claribel rce(s) Supporting Document(s) osmolality serum 310 mOsm/kg 275-295 Above high normal Osmolality Serum [place] ([facility]) ID Date Data Source [id number] 12/11/2020 03:55:00 AM EST [place] ([facility]) Name Value Range Interpretation Code Description Data Claribel rce(s) Supporting Document(s) phosphorus level 1.5 mg/dL 2.5-4.9 Below low normal Phosphorus Le karma [place] ([facility]) ID Date Data Source [id number] 12/11/2020 03:55:00 AM EST [place] ([facility]) Name Value Range Interpretation Code Description Data Claribel rce(s) Supporting Document(s) glucose, fasting 224 mg/dL 70-100 Above high normal Glucose, Fas ting [place] ([facility]) blood urea nitrogen 23 mg/dL 7-18 Above high normal Blood Ure a Nitrogen [place] ([facility]) creatinine for GFR 1.55 mg/dL 0.55-1.30 Above high normal Creatinine for GFR [place] ([facility]) glomerular filtration rate >60 Below low normal Mariza merular Filtration Rate [place] ([facility]) potassium serum 4.0 mEq/L 3.5-5.1 Potassium Serum [place] NA ([facility]) sodium level 141 mEq/L 136-145 Sodium Level [place] ([facility]) chloride level 112 mEq/L 98-107 Above high normal Chloride Level [place] ([facility]) anion gap 16 mEq/L 8-16 Anion Gap [place] ([facility]) carbon dioxide level 13 mEq/L 21-32 Below low normal Carbon Di oxide Level [place] ([facility]) calcium level 8.8 mg/dL 8.5-10.1 Calcium Level [place] ( [facility]) ID Date Data Source [id number] 12/11/2020 03:55:00 AM EST [place] ([facility]) Name Value Range Interpretation Code Description Data Claribel rce(s) Supporting Document(s) venous pH 7.221 units 7.330-7.430 Below low normal Venous pH [place] ([facility]) venous partial pressure O2 74.2 mmHg 30.0-50.0 Above high nor mal Venous Partial Pressure O2 [place] ([facility]) venous partial pressure CO2 30.1 mmHg 38.0-50.0 Below low nor mal Venous Partial Pressure CO2 [place] ([facility]) venous HCO3 12.1 mEq/L 23.0-27.0 Below low normal Venous HCO3 [place] ([facility]) venous total CO2 13.0 mEq/L 24.0-28.0 Below low normal Venous Total CO2 [place] ([facility]) venous base excess -2.0-2.0 Below low normal Venous Base Excess [place] ([facility]) venous standard HCO3 13.5 mEq/L Venous Standard HCO3 [place] ([facility]) venous O2 saturation 94.9 % 60.0-80.0 Above high normal Venous O 2 Saturation [place] ([facility]) ID Date Data Source [id number] 12/11/2020 03:55:00 AM EST [place] ([facility]) Name Value Range Interpretation Code Description Data Claribel rce(s) Supporting Document(s) osmolality serum 310 mOsm/kg 275-295 Above high normal Osmolality Serum [place] ([facility]) ID Date Data Source [id number] 12/11/2020 03:55:00 AM EST [place] ([facility]) Name Value Range Interpretation Code Description Data Claribel rce(s) Supporting Document(s) phosphorus level 1.5 mg/dL 2.5-4.9 Below low normal Phosphorus Le karma [place] ([facility]) ID Date Data Source [id number] 12/11/2020 03:55:00 AM EST [place] ([facility]) Name Value Range Interpretation Code Description Data Claribel rce(s) Supporting Document(s) glucose, fasting 224 mg/dL 70-100 Above high normal Glucose, Fas ting [place] ([facility]) blood urea nitrogen 23 mg/dL 7-18 Above high normal Blood Ure a Nitrogen [place] ([facility]) glomerular filtration rate >60 Below low normal Mariza merular Filtration Rate [place] ([facility]) creatinine for GFR 1.55 mg/dL 0.55-1.30 Above high normal Creatinine for GFR [place] ([facility]) sodium level 141 mEq/L 136-145 Sodium Level [place] ([facility]) potassium serum 4.0 mEq/L 3.5-5.1 Potassium Serum [place] ([facility]) chloride level 112 mEq/L 98-107 Above high normal Chloride Level [place] ([facility]) carbon dioxide level 13 mEq/L 21-32 Below low normal Carbon Di oxide Level [place] ([facility]) anion gap 16 mEq/L 8-16 Anion Gap [place] ([facility]) calcium level 8.8 mg/dL 8.5-10.1 Calcium Level [place] ( [facility]) ID Date Data Source [id number] 12/11/2020 03:55:00 AM EST [place] ([facility]) Name Value Range Interpretation Code Description Data Claribel rce(s) Supporting Document(s) venous pH 7.221 units 7.330-7.430 Below low normal Venous pH [place] ([facility]) venous partial pressure CO2 30.1 mmHg 38.0-50.0 Below low nor mal Venous Partial Pressure CO2 [place] ([facility]) venous partial pressure O2 74.2 mmHg 30.0-50.0 Above high nor mal Venous Partial Pressure O2 [place] ([facility]) venous total CO2 13.0 mEq/L 24.0-28.0 Below low normal Venous Total CO2 [place] ([facility]) venous HCO3 12.1 mEq/L 23.0-27.0 Below low normal Venous HCO3 [place] ([facility]) venous base excess -2.0-2.0 Below low normal Venous Base Excess [place] ([facility]) venous standard HCO3 13.5 mEq/L Venous Standard HCO3 [place] ([facility]) venous O2 saturation 94.9 % 60.0-80.0 Above high normal Venous O 2 Saturation [place] ([facility]) ID Date Data Source [id number] 12/11/2020 03:55:00 AM EST [place] ([facility]) Name Value Range Interpretation Code Description Data Claribel rce(s) Supporting Document(s) osmolality serum 310 mOsm/kg 275-295 Above high normal Osmolality Serum [place] ([facility]) ID Date Data Source [id number] 12/11/2020 03:55:00 AM EST [place] ([facility]) Name Value Range Interpretation Code Description Data Claribel rce(s) Supporting Document(s) phosphorus level 1.5 mg/dL 2.5-4.9 Below low normal Phosphorus Le karma [place] ([facility]) ID Date Data Source [id number] 12/11/2020 03:55:00 AM EST [place] ([facility]) Name Value Range Interpretation Code Description Data Claribel rce(s) Supporting Document(s) glucose, fasting 224 mg/dL 70-100 Above high normal Glucose, Fas ting [place] ([facility]) blood urea nitrogen 23 mg/dL 7-18 Above high normal Blood Ure a Nitrogen [place] ([facility]) creatinine for GFR 1.55 mg/dL 0.55-1.30 Above high normal Creatinine for GFR [place] ([facility]) glomerular filtration rate >60 Below low normal Mariza merular Filtration Rate [place] ([facility]) sodium level 141 mEq/L 136-145 Sodium Level [place] ([facility]) potassium serum 4.0 mEq/L 3.5-5.1 Potassium Serum [place] ([facility]) carbon dioxide level 13 mEq/L 21-32 Below low normal Carbon Di oxide Level [place] ([facility]) chloride level 112 mEq/L 98-107 Above high normal Chloride Level [place] ([facility]) anion gap 16 mEq/L 8-16 Anion Gap [place] ([facility]) calcium level 8.8 mg/dL 8.5-10.1 Calcium Level [place] ( [facility]) ID Date Data Source [id number] 12/11/2020 03:55:00 AM EST [place] ([facility]) Name Value Range Interpretation Code Description Data Claribel rce(s) Supporting Document(s) venous pH 7.221 units 7.330-7.430 Below low normal Venous pH [place] ([facility]) venous partial pressure CO2 30.1 mmHg 38.0-50.0 Below low nor mal Venous Partial Pressure CO2 [place] ([facility]) venous total CO2 13.0 mEq/L 24.0-28.0 Below low normal Venous Total CO2 [place] ([facility]) venous partial pressure O2 74.2 mmHg 30.0-50.0 Above high nor mal Venous Partial Pressure O2 [place] ([facility]) venous HCO3 12.1 mEq/L 23.0-27.0 Below low normal Venous HCO3 [place] ([facility]) venous base excess -2.0-2.0 Below low normal Venous Base Excess [place] ([facility]) venous standard HCO3 13.5 mEq/L Venous Standard HCO3 [place] ([facility]) venous O2 saturation 94.9 % 60.0-80.0 Above high normal Venous O 2 Saturation [place] ([facility]) ID Date Data Source [id number] 12/11/2020 03:55:00 AM EST [place] ([facility]) Name Value Range Interpretation Code Description Data Claribel rce(s) Supporting Document(s) osmolality serum 310 mOsm/kg 275-295 Above high normal Osmolality Serum [place] ([facility]) ID Date Data Source [id number] 12/11/2020 03:55:00 AM EST [place] ([facility]) Name Value Range Interpretation Code Description Data Claribel rce(s) Supporting Document(s) phosphorus level 1.5 mg/dL 2.5-4.9 Below low normal Phosphorus Le karma [place] ([facility]) ID Date Data Source [id number] 12/11/2020 03:55:00 AM EST [place] ([facility]) Name Value Range Interpretation Code Description Data Claribel rce(s) Supporting Document(s) glucose, fasting 224 mg/dL 70-100 Above high normal Glucose, Fas ting [place] ([facility]) blood urea nitrogen 23 mg/dL 7-18 Above high normal Blood Ure a Nitrogen [place] ([facility]) creatinine for GFR 1.55 mg/dL 0.55-1.30 Above high normal Creatinine for GFR [place] ([facility]) sodium level 141 mEq/L 136-145 Sodium Level [place] ([facility]) glomerular filtration rate >60 Below low normal Mariza merular Filtration Rate [place] ([facility]) potassium serum 4.0 mEq/L 3.5-5.1 Potassium Serum [place] NA ([facility]) carbon dioxide level 13 mEq/L 21-32 Below low normal Carbon Di oxide Level [place] ([facility]) chloride level 112 mEq/L 98-107 Above high normal Chloride Level [place] ([facility]) anion gap 16 mEq/L 8-16 Anion Gap [place] ([facility]) calcium level 8.8 mg/dL 8.5-10.1 Calcium Level [place] ( [facility]) ID Date Data Source [id number] 12/11/2020 03:55:00 AM EST [place] ([facility]) Name Value Range Interpretation Code Description Data Claribel rce(s) Supporting Document(s) venous pH 7.221 units 7.330-7.430 Below low normal Venous pH [place] ([facility]) venous partial pressure CO2 30.1 mmHg 38.0-50.0 Below low nor mal Venous Partial Pressure CO2 [place] ([facility]) venous partial pressure O2 74.2 mmHg 30.0-50.0 Above high nor mal Venous Partial Pressure O2 [place] ([facility]) venous total CO2 13.0 mEq/L 24.0-28.0 Below low normal Venous Total CO2 [place] ([facility]) venous HCO3 12.1 mEq/L 23.0-27.0 Below low normal Venous HCO3 [place] ([facility]) venous base excess -2.0-2.0 Below low normal Venous Base Excess [place] ([facility]) venous standard HCO3 13.5 mEq/L Venous Standard HCO3 [place] ([facility]) venous O2 saturation 94.9 % 60.0-80.0 Above high normal Venous O 2 Saturation [place] ([facility]) ID Date Data Source [id number] 12/11/2020 03:50:00 AM EST [place] ([facility]) Name Value Range Interpretation Code Description Data Claribel rce(s) Supporting Document(s) bedside glucose 218 mg/dL 70-105 Above high normal Bedside Gluco se [facility]) ID Date Data Source [id number] 12/11/2020 03:50:00 AM EST [facility]) Name Value Range Interpretation Code Description Data Claribel rce(s) Supporting Document(s) bedside glucose 218 mg/dL 70-105 Above high normal Bedside Gluco se [place] ([facility]) ID Date Data Source [id number] 12/11/2020 03:50:00 [facility] Name Value Range Interpretation Code Description Data Claribel rce(s) Supporting Document(s) bedside glucose 218 mg/dL 70-105 Above high normal Bedside Gluco se [facility]) ID Date Data Source [id number] 12/11/2020 03:50:00 AM EST [place] ([facility]) Name Value Range Interpretation Code Description Data Claribel rce(s) Supporting Document(s) bedside glucose 218 mg/dL 70-105 Above high normal Bedside Gluco se [place] ([facility]) ID Date Data Source [id number] 12/11/2020 03:50:00 AM EST [place] ([facility]) Name Value Range Interpretation Code Description Data Claribel rce(s) Supporting Document(s) bedside glucose 218 mg/dL 70-105 Above high normal Bedside Gluco se [place] ([facility]) ID Date Data Source [id number] 12/11/2020 03:50:00 AM EST [place] ([facility]) Name Value Range Interpretation Code Description Data Claribel rce(s) Supporting Document(s) bedside glucose 218 mg/dL 70-105 Above high normal Bedside Gluco se [place] ([facility]) ID Date Data Source [id number] 12/11/2020 03:02:00 AM EST [place] ([facility]) Name Value Range Interpretation Code Description Data Claribel rce(s) Supporting Document(s) bedside glucose 230 mg/dL 70-105 Above high normal [facility] Date Data Source [id number] 12/11/2020 03:02:00 AM EST [place] ([facility]) Name Value Range Interpretation Code Description Data Claribel rce(s) Supporting Document(s) bedside glucose 230 mg/dL 70-105 Above high normal Bedside Gluco se [facility]) ID Date Data Source [id number] 12/11/2020 03:02:00 AM EST [place] ([facility]) Name Value Range Interpretation Code Description Data Claribel rce(s) Supporting Document(s) bedside glucose 230 mg/dL 70-105 Above high normal Bedside Gluco se [place] ([facility]) ID Date Data Source [id number] 12/11/2020 03:02:00 AM EST [place] ([facility]) Name Value Range Interpretation Code Description Data Claribel rce(s) Supporting Document(s) bedside glucose 230 mg/dL 70-105 Above high normal Bedside Gluco se [place] ([facility]) ID Date Data Source [id number] 12/11/2020 03:02:00 AM EST [place] ([facility]) Name Value Range Interpretation Code Description Data Claribel rce(s) Supporting Document(s) bedside glucose 230 mg/dL 70-105 Above high normal Bedside Gluco se [place] ([facility]) ID Date Data Source [id number] 12/11/2020 03:02:00 AM EST [place] ([facility]) Name Value Range Interpretation Code Description Data Claribel rce(s) Supporting Document(s) bedside glucose 230 mg/dL 70-105 Above high normal Bedside Gluco se [place] ([facility]) ID Date Data Source [id number] 12/11/2020 02:11:00 AM EST [place] [facility]) Name Value Range Interpretation Code Description Data Claribel rce(s) Supporting Document(s) bedside glucose 211 mg/dL 70-105 Above high normal Bedside Gluco se [place] ([facility]) ID Date Data Source [id number] 12/11/2020 02:11:00 AM EST [place] ([facility]) Name Value Range Interpretation Code Description Data Claribel rce(s) Supporting Document(s) bedside glucose 211 mg/dL 70-105 Above high normal [facility] Date Data Source [id number] 12/11/2020 02:11:00 AM EST [place] ([facility]) Name Value Range Interpretation Code Description Data Claribel rce(s) Supporting Document(s) bedside glucose 211 mg/dL 70-105 Above high normal Bedside Gluco se [place] ([facility]) ID Date Data Source [id number] 12/11/2020 02:11:00 AM EST [place] ([facility]) Name Value Range Interpretation Code Description Data Claribel rce(s) Supporting Document(s) bedside glucose 211 mg/dL 70-105 Above high normal Bedside Gluco se [place] ([facility]) ID Date Data Source [id number] 12/11/2020 02:11:00 AM EST [place] ([facility]) Name Value Range Interpretation Code Description Data Claribel rce(s) Supporting Document(s) bedside glucose 211 mg/dL 70-105 Above high normal Bedside Gluco se [place] ([facility]) ID Date Data Source [id number] 12/11/2020 02:11:00 AM EST [place] ([facility]) Name Value Range Interpretation Code Description Data Claribel rce(s) Supporting Document(s) bedside glucose 211 mg/dL 70-105 Above high normal Bedside Gluco se [place] ([facility]) ID Date Data Source [id number] 12/11/2020 01:06:00 AM EST [place] ([facility]) Name Value Range Interpretation Code Description Data Claribel rce(s) Supporting Document(s) potassium random urine 55.4 mEq/L Potassium Ran dom Urine [facility]) ID Date Data Source [id number] 12/11/2020 01:06:00 AM EST [place] ([facility]) Name Value Range Interpretation Code Description Data Claribel rce(s) Supporting Document(s) sodium,random urine 35 mEq/L Sodium,random Ur ine [place] ([facility]) ID Date Data Source [id number] 12/11/2020 01:06:00 AM EST [place] ([facility]) Name Value Range Interpretation Code Description Data Claribel rce(s) Supporting Document(s) creatinine,random urine 127.0 mg/dL Creatinine, random Urine [place] ([facility]) ID Date Data Source [id number] 12/11/2020 01:06:00 AM EST [place] ([facility]) Name Value Range Interpretation Code Description Data Claribel rce(s) Supporting Document(s) urea nitrogen random urine 622 mg/dL Urea Nitr ogen Random Urine [place] ([facility]) ID Date Data Source [id number] 12/11/2020 01:06:00 AM EST [place] ([facility]) Name Value Range Interpretation Code Description Data Claribel rce(s) Supporting Document(s) potassium random urine 55.4 mEq/L Potassium Ran dom Urine [place] ([facility]) ID Date Data Source [id number] 12/11/2020 01:06:00 AM EST [place] ([facility]) Name Value Range Interpretation Code Description Data Claribel rce(s) Supporting Document(s) sodium,random urine 35 mEq/L Sodium,random Ur ine [facility] ([facility]) ID Date Data Source [id number] 12/11/2020 01:06:00 AM EST [facility] ([facility]) Name Value Range Interpretation Code Description Data Claribel rce(s) Supporting Document(s) creatinine,random urine 127.0 mg/dL Creatinine, random Urine [facility] ([facility]) ID Date Data Source [id number] 12/11/2020 01:06:00 AM EST [facility] ([facility]) Name Value Range Interpretation Code Description Data Claribel rce(s) Supporting Document(s) urea nitrogen random urine 622 mg/dL Urea Nitr ogen Random Urine [facility] ([facility]) ID Date Data Source [id number] 12/11/2020 01:06:00 AM EST [facility] ([facility]) Name Value Range Interpretation Code Description Data Claribel rce(s) Supporting Document(s) potassium random urine 55.4 mEq/L Potassium Ran dom Urine [facility] ([facility]) ID Date Data Source [id number] 12/11/2020 01:06:00 AM EST [facility] ([facility]) Name Value Range Interpretation Code Description Data Claribel rce(s) Supporting Document(s) sodium,random urine 35 mEq/L Sodium,random Ur ine [facility] ([facility]) ID Date Data Source [id number] 12/11/2020 01:06:00 AM EST [facility] ([facility]) Name Value Range Interpretation Code Description Data Claribel rce(s) Supporting Document(s) creatinine,random urine 127.0 mg/dL Creatinine, random Urine [facility] ([facility]) ID Date Data Source [id number] 12/11/2020 01:06:00 AM EST [facility] ([facility]) Name Value Range Interpretation Code Description Data Claribel rce(s) Supporting Document(s) urea nitrogen random urine 622 mg/dL Urea Nitr ogen Random Urine [facility] ([facility]) ID Date Data Source [id number] 12/11/2020 01:06:00 AM EST [facility] ([facility]) Name Value Range Interpretation Code Description Data Claribel rce(s) Supporting Document(s) potassium random urine 55.4 mEq/L Potassium Ran dom Urine [facility] ([facility]) ID Date Data Source [id number] 12/11/2020 01:06:00 AM EST [facility] ([facility]) Name Value Range Interpretation Code Description Data Claribel rce(s) Supporting Document(s) sodium,random urine 35 mEq/L Sodium,random Ur ine [facility] ([facility]) ID Date Data Source [id number] 12/11/2020 01:06:00 AM EST [facility] ([facility]) Name Value Range Interpretation Code Description Data Claribel rce(s) Supporting Document(s) creatinine,random urine 127.0 mg/dL Creatinine, random Urine [facility] ([facility]) ID Date Data Source [id number] 12/11/2020 01:06:00 AM EST [place] ([facility]) Name Value Range Interpretation Code Description Data Claribel rce(s) Supporting Document(s) urea nitrogen random urine 622 mg/dL Urea Nitr ogen Random Urine [facility] ([facility]) ID Date Data Source [id number] 12/11/2020 01:06:00 AM EST [facility] ([facility]) Name Value Range Interpretation Code Description Data Calribel rce(s) Supporting Document(s) potassium random urine 55.4 mEq/L Potassium Ran dom Urine [facility] ([facility]) ID Date Data Source [id number] 12/11/2020 01:06:00 AM EST [facility] ([facility]) Name Value Range Interpretation Code Description Data Claribel rce(s) Supporting Document(s) sodium,random urine 35 mEq/L Sodium,random Ur ine [facility] ([facility]) ID Date Data Source [id number] 12/11/2020 01:06:00 AM EST [facility] ([facility]) Name Value Range Interpretation Code Description Data Claribel rce(s) Supporting Document(s) creatinine,random urine 127.0 mg/dL Creatinine, random Urine [facility] ([facility]) ID Date Data Source [id number] 12/11/2020 01:06:00 AM EST [place] ([facility]) Name Value Range Interpretation Code Description Data Claribel rce(s) Supporting Document(s) urea nitrogen random urine 622 mg/dL Urea Nitr ogen Random Urine [facility] ([facility]) ID Date Data Source [id number] 12/11/2020 01:06:00 AM EST [facility] ([facility]) Name Value Range Interpretation Code Description Data Claribel rce(s) Supporting Document(s) potassium random urine 55.4 mEq/L Potassium Ran dom Urine [facility] ([facility]) ID Date Data Source [id number] 12/11/2020 01:06:00 AM EST [facility] ([facility]) Name Value Range Interpretation Code Description Data Claribel rce(s) Supporting Document(s) sodium,random urine 35 mEq/L Sodium,random Ur ine [facility] ([facility]) ID Date Data Source [id number] 12/11/2020 01:06:00 AM EST [facility] ([facility]) Name Value Range Interpretation Code Description Data Claribel rce(s) Supporting Document(s) creatinine,random urine 127.0 mg/dL Creatinine, random Urine [facility] ([facility]) ID Date Data Source [id number] 12/11/2020 01:06:00 AM EST [place] ([facility]) Name Value Range Interpretation Code Description Data Claribel rce(s) Supporting Document(s) urea nitrogen random urine 622 mg/dL Urea Nitr ogen Random Urine [facility] ([facility]) ID Date Data Source [id number] 12/11/2020 12:48:00 AM EST [facility] ([facility]) Name Value Range Interpretation Code Description Data Claribel rce(s) Supporting Document(s) bedside glucose 135 mg/dL 70-105 Above high normal Bedside Gluco se [facility] ([facility]) ID Date Data Source [id number] 12/11/2020 12:48:00 AM EST [facility] ([facility]) Name Value Range Interpretation Code Description Data Claribel rce(s) Supporting Document(s) bedside glucose 135 mg/dL 70-105 Above high normal Bedside Gluco se [facility] ([facility]) ID Date Data Source [id number] 12/11/2020 12:48:00 AM EST [facility] ([facility]) Name Value Range Interpretation Code Description Data Claribel rce(s) Supporting Document(s) bedside glucose 135 mg/dL 70-105 Above high normal Bedside Gluco se [facility] ([facility]) ID Date Data Source [id number] 12/11/2020 12:48:00 AM EST [facility] ([facility]) Name Value Range Interpretation Code Description Data Claribel rce(s) Supporting Document(s) bedside glucose 135 mg/dL 70-105 Above high normal Bedside Gluco se [facility] ([facility]) ID Date Data Source [id number] 12/11/2020 12:48:00 AM EST [facility] ([facility]) Name Value Range Interpretation Code Description Data Claribel rce(s) Supporting Document(s) bedside glucose 135 mg/dL 70-105 Above high normal Bedside Gluco se [facility] ([facility]) ID Date Data Source [id number] 12/11/2020 12:48:00 AM EST [facility] ([facility]) Name Value Range Interpretation Code Description Data Claribel rce(s) Supporting Document(s) bedside glucose 135 mg/dL 70-105 Above high normal Bedside Gluco se [facility] ([facility]) ID Date Data Source [id number] 12/11/2020 12:18:00 AM EST [facility] ([facility]) Name Value Range Interpretation Code Description Data Claribel rce(s) Supporting Document(s) osmolality serum 311 mOsm/kg 275-295 Above high normal Osmolality Serum [facility] ([facility]) ID Date Data Source [id number] 12/11/2020 12:18:00 AM EST [facility] ([facility]) Name Value Range Interpretation Code Description Data Claribel rce(s) Supporting Document(s) phosphorus level 2.4 mg/dL 2.5-4.9 Below low normal Phosphorus Le karma [facility] ([facility]) ID Date Data Source [id number] 12/11/2020 12:18:00 AM EST [facility] ([facility]) Name Value Range Interpretation Code Description Data Claribel rce(s) Supporting Document(s) glucose, fasting 129 mg/dL 70-100 Above high normal Glucose, Fas ting [facility] ([facility]) blood urea nitrogen 26 mg/dL 7-18 Above high normal Blood Ure a Nitrogen [facility] ([facility]) creatinine for GFR 1.51 mg/dL 0.55-1.30 Above high normal Creatinine for GFR [place] ([facility]) glomerular filtration rate >60 Below low normal Mariza merular Filtration Rate [facility] ([facility]) sodium level 142 mEq/L 136-145 Sodium Level [facility] ([facility]) potassium serum 4.4 mEq/L 3.5-5.1 Potassium Serum [place] ([facility]) chloride level 114 mEq/L 98-107 Above high normal Chloride Level [place] ([facility]) carbon dioxide level 11 mEq/L 21-32 Below low normal Carbon Di oxide Level [place] ([facility]) anion gap 17 mEq/L 8-16 Above high normal Anion Gap [facility] ([facility]) calcium level 9.4 mg/dL 8.5-10.1 Calcium Level [place] ( [facility]) ID Date Data Source [id number] 12/11/2020 12:18:00 AM EST [place] ([facility]) Name Value Range Interpretation Code Description Data Claribel rce(s) Supporting Document(s) venous pH 7.171 units 7.330-7.430 Below low normal Venous pH [facility] ([facility]) venous partial pressure CO2 26.9 mmHg 38.0-50.0 Below low nor mal Venous Partial Pressure CO2 [place] ([facility]) venous partial pressure O2 98.1 mmHg 30.0-50.0 Above high nor mal Venous Partial Pressure O2 [facility] ([facility]) venous total CO2 10.4 mEq/L 24.0-28.0 Below low normal Venous Total CO2 [facility] ([facility]) venous HCO3 9.6 mEq/L 23.0-27.0 Below low normal Venous HCO3 [facility] ([facility]) venous base excess -2.0-2.0 Below low normal Venous Base Excess [facility] ([facility]) venous standard HCO3 11.7 mEq/L Venous Standard HCO3 [place] ([facility]) venous O2 saturation 97.6 % 60.0-80.0 Above high normal Venous O 2 Saturation [place] ([facility]) ID Date Data Source [id number] 12/11/2020 12:18:00 AM EST [facility] ([facility]) Name Value Range Interpretation Code Description Data Claribel rce(s) Supporting Document(s) osmolality serum 311 mOsm/kg 275-295 Above high normal Osmolality Serum [facility] ([facility]) ID Date Data Source [id number] 12/11/2020 12:18:00 AM EST [facility]) Name Value Range Interpretation Code Description Data Claribel rce(s) Supporting Document(s) phosphorus level 2.4 mg/dL 2.5-4.9 Below low normal Phosphorus Le karma [facility] ([facility]) ID Date Data Source [id number] 12/11/2020 12:18:00 AM EST [facility] ([facility]) Name Value Range Interpretation Code Description Data Claribel rce(s) Supporting Document(s) glucose, fasting 129 mg/dL 70-100 Above high normal Glucose, Fas ting [facility] ([facility]) blood urea nitrogen 26 mg/dL 7-18 Above high normal Blood Ure a Nitrogen [facility] ([facility]) creatinine for GFR 1.51 mg/dL 0.55-1.30 Above high normal Creatinine for GFR [facility] ([facility]) glomerular filtration rate >60 Below low normal Mariza merular Filtration Rate [facility] ([facility]) potassium serum 4.4 mEq/L 3.5-5.1 Potassium Serum [facility] [place] ([facility]) sodium level 142 mEq/L 136-145 Sodium Level [facility] ([facility]) chloride level 114 mEq/L 98-107 Above high normal Chloride Level [facility] ([facility]) carbon dioxide level 11 mEq/L 21-32 Below low normal Carbon Di oxide Level [facility] ([facility]) anion gap 17 mEq/L 8-16 Above high normal Anion Gap [facility] ([facility]) calcium level 9.4 mg/dL 8.5-10.1 Calcium Level [facility] ( [facility]) ID Date Data Source [id number] 12/11/2020 12:18:00 AM EST [place] ([facility]) Name Value Range Interpretation Code Description Data Claribel rce(s) Supporting Document(s) venous partial pressure CO2 26.9 mmHg 38.0-50.0 Below low nor mal Venous Partial Pressure CO2 [facility] ([facility]) venous pH 7.171 units 7.330-7.430 Below low normal Venous pH [facility] ([facility]) venous partial pressure O2 98.1 mmHg 30.0-50.0 Above high nor mal Venous Partial Pressure O2 [facility] ([facility]) venous total CO2 10.4 mEq/L 24.0-28.0 Below low normal Venous Total CO2 [facility] ([facility]) venous base excess -2.0-2.0 Below low normal Venous Base Excess [facility] ([facility]) venous HCO3 9.6 mEq/L 23.0-27.0 Below low normal Venous HCO3 [facility] ([facility]) venous standard HCO3 11.7 mEq/L Venous Standard HCO3 [facility] ([facility]) venous O2 saturation 97.6 % 60.0-80.0 Above high normal Venous O 2 Saturation [place] ([facility]) ID Date Data Source [id number] 12/11/2020 12:18:00 AM EST [facility] ([facility]) Name Value Range Interpretation Code Description Data Claribel rce(s) Supporting Document(s) osmolality serum 311 mOsm/kg 275-295 Above high normal Osmolality Serum [place] ([facility]) ID Date Data Source [id number] 12/11/2020 12:18:00 AM EST [place] ([facility]) Name Value Range Interpretation Code Description Data Claribel rce(s) Supporting Document(s) phosphorus level 2.4 mg/dL 2.5-4.9 Below low normal Phosphorus Le karma [facility] ([facility]) ID Date Data Source [id number] 12/11/2020 12:18:00 AM EST [place] ([facility]) Name Value Range Interpretation Code Description Data Claribel rce(s) Supporting Document(s) glucose, fasting 129 mg/dL 70-100 Above high normal Glucose, Fas ting [place] ([facility]) blood urea nitrogen 26 mg/dL 7-18 Above high normal Blood Ure a Nitrogen [place] ([facility]) creatinine for GFR 1.51 mg/dL 0.55-1.30 Above high normal Creatinine for GFR [place] ([facility]) glomerular filtration rate >60 Below low normal Mariza merular Filtration Rate [facility] ([facility]) sodium level 142 mEq/L 136-145 Sodium Level [facility] ([facility]) potassium serum 4.4 mEq/L 3.5-5.1 Potassium Serum [place] ([facility]) chloride level 114 mEq/L 98-107 Above high normal Chloride Level [facility] ([facility]) carbon dioxide level 11 mEq/L 21-32 Below low normal Carbon Di oxide Level [facility] ([facility]) anion gap 17 mEq/L 8-16 Above high normal Anion Gap [facility] ([facility]) calcium level 9.4 mg/dL 8.5-10.1 Calcium Level [place] ( [facility]) ID Date Data Source [id number] 12/11/2020 12:18:00 AM EST [facility]) Name Value Range Interpretation Code Description Data Claribel rce(s) Supporting Document(s) venous partial pressure CO2 26.9 mmHg 38.0-50.0 Below low nor mal Venous Partial Pressure CO2 [facility] ([facility]) venous pH 7.171 units 7.330-7.430 Below low normal Venous pH [facility] ([facility]) venous partial pressure O2 98.1 mmHg 30.0-50.0 Above high nor mal Venous Partial Pressure O2 [facility] ([facility]) venous total CO2 10.4 mEq/L 24.0-28.0 Below low normal Venous Total CO2 [facility] ([facility]) venous HCO3 9.6 mEq/L 23.0-27.0 Below low normal Venous HCO3 [facility] ([facility]) venous base excess -2.0-2.0 Below low normal Venous Base Excess [facility] ([facility]) venous standard HCO3 11.7 mEq/L Venous Standard HCO3 [facility] ([facility]) venous O2 saturation 97.6 % 60.0-80.0 Above high normal Venous O 2 Saturation [facility]) ID Date Data Source [id number] 12/11/2020 12:18:00 AM EST [facility]) Name Value Range Interpretation Code Description Data Claribel rce(s) Supporting Document(s) osmolality serum 311 mOsm/kg 275-295 Above high normal Osmolality Serum [facility] ([facility]) ID Date Data Source [id number] 12/11/2020 12:18:00 AM EST [place] ([facility]) Name Value Range Interpretation Code Description Data Claribel rce(s) Supporting Document(s) phosphorus level 2.4 mg/dL 2.5-4.9 Below low normal Phosphorus Le karma [facility] ([facility]) ID Date Data Source [id number] 12/11/2020 12:18:00 AM EST [place] ([facility]) Name Value Range Interpretation Code Description Data Claribel rce(s) Supporting Document(s) glucose, fasting 129 mg/dL 70-100 Above high normal Glucose, Fas ting [facility] ([facility]) blood urea nitrogen 26 mg/dL 7-18 Above high normal Blood Ure a Nitrogen [facility] ([facility]) creatinine for GFR 1.51 mg/dL 0.55-1.30 Above high normal Creatinine for GFR [facility] ([facility]) glomerular filtration rate >60 Below low normal Mariza merular Filtration Rate [facility] ([facility]) sodium level 142 mEq/L 136-145 Sodium Level [facility] ([facility]) potassium serum 4.4 mEq/L 3.5-5.1 Potassium Serum [place] ([facility]) carbon dioxide level 11 mEq/L 21-32 Below low normal Carbon Di oxide Level [facility] ([facility]) chloride level 114 mEq/L 98-107 Above high normal Chloride Level [facility] ([facility]) anion gap 17 mEq/L 8-16 Above high normal Anion Gap [facility] ([facility]) calcium level 9.4 mg/dL 8.5-10.1 Calcium Level [place] ( [facility]) ID Date Data Source [id number] 12/11/2020 12:18:00 AM EST [place] ([facility]) Name Value Range Interpretation Code Description Data Claribel rce(s) Supporting Document(s) venous pH 7.171 units 7.330-7.430 Below low normal Venous pH [facility] ([facility]) venous partial pressure CO2 26.9 mmHg 38.0-50.0 Below low nor mal Venous Partial Pressure CO2 [place] ([facility]) venous partial pressure O2 98.1 mmHg 30.0-50.0 Above high nor mal Venous Partial Pressure O2 [place] ([facility]) venous HCO3 9.6 mEq/L 23.0-27.0 Below low normal Venous HCO3 [place] ([facility]) venous total CO2 10.4 mEq/L 24.0-28.0 Below low normal Venous Total CO2 [facility] ([facility]) venous base excess -2.0-2.0 Below low normal Venous Base Excess [facility] ([facility]) venous standard HCO3 11.7 mEq/L Venous Standard HCO3 [place] ([facility]) venous O2 saturation 97.6 % 60.0-80.0 Above high normal Venous O 2 Saturation [place] ([facility]) ID Date Data Source [id number] 12/11/2020 12:18:00 AM EST [place] ([facility]) Name Value Range Interpretation Code Description Data Claribel rce(s) Supporting Document(s) osmolality serum 311 mOsm/kg 275-295 Above high normal Osmolality Serum [place] ([facility]) ID Date Data Source [id number] 12/11/2020 12:18:00 AM EST [place] ([facility]) Name Value Range Interpretation Code Description Data Claribel rce(s) Supporting Document(s) phosphorus level 2.4 mg/dL 2.5-4.9 Below low normal Phosphorus Le karma [place] ([facility]) ID Date Data Source [id number] 12/11/2020 12:18:00 AM EST [place] ([facility]) Name Value Range Interpretation Code Description Data Claribel rce(s) Supporting Document(s) glucose, fasting 129 mg/dL 70-100 Above high normal Glucose, Fas ting [place] ([facility]) blood urea nitrogen 26 mg/dL 7-18 Above high normal Blood Ure a Nitrogen [place] ([facility]) creatinine for GFR 1.51 mg/dL 0.55-1.30 Above high normal Creatinine for GFR [place] ([facility]) glomerular filtration rate >60 Below low normal Mariza merular Filtration Rate [place] ([facility]) sodium level 142 mEq/L 136-145 Sodium Level [place] ([facility]) potassium serum 4.4 mEq/L 3.5-5.1 Potassium Serum [place] ([facility]) chloride level 114 mEq/L 98-107 Above high normal Chloride Level [place] ([facility]) carbon dioxide level 11 mEq/L 21-32 Below low normal Carbon Di oxide Level [place] ([facility]) anion gap 17 mEq/L 8-16 Above high normal Anion Gap [place] ([facility]) calcium level 9.4 mg/dL 8.5-10.1 Calcium Level [place] ( [facility]) ID Date Data Source [id number] 12/11/2020 12:18:00 AM EST [place] ([facility]) Name Value Range Interpretation Code Description Data Claribel rce(s) Supporting Document(s) venous pH 7.171 units 7.330-7.430 Below low normal Venous pH [facility]) venous partial pressure CO2 26.9 mmHg 38.0-50.0 Below low nor mal Venous Partial Pressure CO2 [place] ([facility]) venous partial pressure O2 98.1 mmHg 30.0-50.0 Above high nor mal Venous Partial Pressure O2 [facility]) venous total CO2 10.4 mEq/L 24.0-28.0 Below low normal Venous Total CO2 [facility]) venous HCO3 9.6 mEq/L 23.0-27.0 Below low normal Venous HCO3 [facility]) venous base excess -2.0-2.0 Below low normal Venous Base Excess [facility]) venous standard HCO3 11.7 mEq/L Venous Standard HCO3 [place] ([facility]) venous O2 saturation 97.6 % 60.0-80.0 Above high normal Venous O 2 Saturation [place] ([facility]) ID Date Data Source [id number] 12/11/2020 12:18:00 AM EST [place] ([facility]) Name Value Range Interpretation Code Description Data Claribel rce(s) Supporting Document(s) osmolality serum 311 mOsm/kg 275-295 Above high normal Osmolality Serum [facility] ([facility]) ID Date Data Source [id number] 12/11/2020 12:18:00 AM EST [place] ([facility]) Name Value Range Interpretation Code Description Data Claribel rce(s) Supporting Document(s) phosphorus level 2.4 mg/dL 2.5-4.9 Below low normal Phosphorus Le karma [facility] ([facility]) ID Date Data Source [id number] 12/11/2020 12:18:00 AM EST [place] ([facility]) Name Value Range Interpretation Code Description Data Claribel rce(s) Supporting Document(s) glucose, fasting 129 mg/dL 70-100 Above high normal Glucose, Fas ting [facility] ([facility]) blood urea nitrogen 26 mg/dL 7-18 Above high normal Blood Ure a Nitrogen [facility] ([facility]) creatinine for GFR 1.51 mg/dL 0.55-1.30 Above high normal Creatinine for GFR [facility] ([facility]) glomerular filtration rate >60 Below low normal Mariza merular Filtration Rate [facility] ([facility]) sodium level 142 mEq/L 136-145 Sodium Level [facility] ([facility]) potassium serum 4.4 mEq/L 3.5-5.1 Potassium Serum ATHE NA ([facility]) chloride level 114 mEq/L 98-107 Above high normal Chloride Level [place] ([facility]) carbon dioxide level 11 mEq/L 21-32 Below low normal Carbon Di oxide Level [facility] ([facility]) anion gap 17 mEq/L 8-16 Above high normal Anion Gap [facility] ([facility]) calcium level 9.4 mg/dL 8.5-10.1 Calcium Level [place] ( [facility]) ID Date Data Source [id number] 12/11/2020 12:18:00 AM EST [place] ([facility]) Name Value Range Interpretation Code Description Data Claribel rce(s) Supporting Document(s) venous pH 7.171 units 7.330-7.430 Below low normal Venous pH [facility] ([facility]) venous partial pressure CO2 26.9 mmHg 38.0-50.0 Below low nor mal Venous Partial Pressure CO2 [facility] ([facility]) venous partial pressure O2 98.1 mmHg 30.0-50.0 Above high nor mal Venous Partial Pressure O2 [facility] ([facility]) venous total CO2 10.4 mEq/L 24.0-28.0 Below low normal Venous Total CO2 [facility] ([facility]) venous HCO3 9.6 mEq/L 23.0-27.0 Below low normal Venous HCO3 [facility] ([facility]) venous base excess -2.0-2.0 Below low normal Venous Base Excess [facility] ([facility]) venous standard HCO3 11.7 mEq/L Venous Standard HCO3 [facility] ([facility]) venous O2 saturation 97.6 % 60.0-80.0 Above high normal Venous O 2 Saturation [place] ([facility]) ID Date Data Source [id number] 12/11/2020 12:08:00 AM EST [place] ([facility]) Name Value Range Interpretation Code Description Data Claribel rce(s) Supporting Document(s) bedside glucose 118 mg/dL 70-105 Above high normal Bedside Gluco se [facility] ([facility]) ID Date Data Source [id number] 12/11/2020 12:08:00 AM EST [place] ([facility]) Name Value Range Interpretation Code Description Data Claribel rce(s) Supporting Document(s) bedside glucose 118 mg/dL 70-105 Above high normal Bedside Gluco se [facility] ([facility]) ID Date Data Source [id number] 12/11/2020 12:08:00 AM EST [place] ([facility]) Name Value Range Interpretation Code Description Data Claribel rce(s) Supporting Document(s) bedside glucose 118 mg/dL 70-105 Above high normal Bedside Gluco se [facility] ([facility]) ID Date Data Source [id number] 12/11/2020 12:08:00 AM EST [place] ([facility]) Name Value Range Interpretation Code Description Data Claribel rce(s) Supporting Document(s) bedside glucose 118 mg/dL 70-105 Above high normal Bedside Gluco se [facility] ([facility]) ID Date Data Source [id number] 12/11/2020 12:08:00 AM EST [place] ([facility]) Name Value Range Interpretation Code Description Data Claribel rce(s) Supporting Document(s) bedside glucose 118 mg/dL 70-105 Above high normal Bedside Gluco se [facility] ([facility]) ID Date Data Source [id number] 12/11/2020 12:08:00 AM EST [place] ([facility]) Name Value Range Interpretation Code Description Data Claribel rce(s) Supporting Document(s) bedside glucose 118 mg/dL 70-105 Above high normal Bedside Gluco se [facility] ([facility]) ID Date Data Source [id number] 12/10/2020 11:06:00 PM EST [place] ([facility]) Name Value Range Interpretation Code Description Data Claribel rce(s) Supporting Document(s) bedside glucose 102 mg/dL 70-105 Bedside Glucose AT[facility]) ID Date Data Source [id number] 12/10/2020 11:06:00 PM EST [place] ([facility]) Name Value Range Interpretation Code Description Data Claribel rce(s) Supporting Document(s) bedside glucose 102 mg/dL 70-105 Bedside Glucose ATHE [place] ([facility]) ID Date Data Source [id number] 12/10/2020 11:06:00 PM EST [place] ([facility]) Name Value Range Interpretation Code Description Data Claribel rce(s) Supporting Document(s) bedside glucose 102 mg/dL 70-105 Bedside Glucose [place]HE [place] ([facility]) ID Date Data Source [id number] 12/10/2020 11:06:00 PM EST [place] ([facility]) Name Value Range Interpretation Code Description Data Claribel rce(s) Supporting Document(s) bedside glucose 102 mg/dL 70-105 Bedside Glucose [place] [place] ([facility]) ID Date Data Source [id number] 12/10/2020 11:06:00 PM EST [place] ([facility]) Name Value Range Interpretation Code Description Data Claribel rce(s) Supporting Document(s) bedside glucose 102 mg/dL 70-105 Bedside Glucose [place] ([facility]) ID Date Data Source [id number] 12/10/2020 11:06:00 PM EST [place] ([facility]) Name Value Range Interpretation Code Description Data Claribel rce(s) Supporting Document(s) bedside glucose 102 mg/dL 70-105 Bedside Glucose [facility] [place] ([facility]) ID Date Data Source [id number] 12/10/2020 09:50:00 PM EST [place] ([facility]) Name Value Range Interpretation Code Description Data Claribel rce(s) Supporting Document(s) venous pH 7.294 units 7.330-7.430 Below low normal Venous pH [place] ([facility]) venous partial pressure O2 213.7 mmHg 30.0-50.0 Above high nor mal Venous Partial Pressure O2 [place] ([facility]) venous partial pressure CO2 14.3 mmHg 38.0-50.0 Below low nor mal Venous Partial Pressure CO2 [place] ([facility]) venous total CO2 7.2 mEq/L 24.0-28.0 Below low normal Venous Total CO2 [place] ([facility]) venous HCO3 6.8 mEq/L 23.0-27.0 Below low normal Venous HCO3 [place] ([facility]) venous base excess -2.0-2.0 Below low normal Venous Base Excess [place] ([facility]) venous O2 saturation 99.4 % 60.0-80.0 Above high normal Venous O 2 Saturation [place] ([facility]) venous standard HCO3 12.3 mEq/L Venous Standard HCO3 [facility] ([facility]) venous site unknown Venous Site [place] ([facility]) ID Date Data Source [id number] 12/10/2020 09:50:00 PM EST [place] ([facility]) Name Value Range Interpretation Code Description Data Claribel rce(s) Supporting Document(s) venous pH 7.294 units 7.330-7.430 Below low normal Venous pH [place] ([facility]) venous partial pressure O2 213.7 mmHg 30.0-50.0 Above high nor mal Venous Partial Pressure O2 [place] ([facility]) venous total CO2 7.2 mEq/L 24.0-28.0 Below low normal Venous Total CO2 [place] ([facility]) venous partial pressure CO2 14.3 mmHg 38.0-50.0 Below low nor mal Venous Partial Pressure CO2 [place] ([facility]) venous base excess -2.0-2.0 Below low normal Venous Base Excess [place] ([facility]) venous HCO3 6.8 mEq/L 23.0-27.0 Below low normal Venous HCO3 [place] ([facility]) venous standard HCO3 12.3 mEq/L Venous Standard HCO3 [facility] ([facility]) venous O2 saturation 99.4 % 60.0-80.0 Above high normal Venous O 2 Saturation [place] ([facility]) venous site unknown Venous Site [facility] ([facility]) ID Date Data Source [id number] 12/10/2020 09:50:00 PM EST [place] ([facility]) Name Value Range Interpretation Code Description Data Claribel rce(s) Supporting Document(s) venous pH 7.294 units 7.330-7.430 Below low normal Venous pH [place] ([facility]) venous partial pressure CO2 14.3 mmHg 38.0-50.0 Below low nor mal Venous Partial Pressure CO2 [place] ([facility]) venous HCO3 6.8 mEq/L 23.0-27.0 Below low normal Venous HCO3 [facility] ([facility]) venous total CO2 7.2 mEq/L 24.0-28.0 Below low normal Venous Total CO2 [place] ([facility]) venous partial pressure O2 213.7 mmHg 30.0-50.0 Above high nor mal Venous Partial Pressure O2 [place] ([facility]) venous base excess -2.0-2.0 Below low normal Venous Base Excess [place] ([facility]) venous site unknown Venous Site [place] ([facility]) venous O2 saturation 99.4 % 60.0-80.0 Above high normal Venous O 2 Saturation [place] ([facility]) venous standard HCO3 12.3 mEq/L Venous Standard HCO3 [place] ([facility]) ID Date Data Source [id number] 12/10/2020 09:50:00 PM EST [place] ([facility]) Name Value Range Interpretation Code Description Data Claribel rce(s) Supporting Document(s) venous partial pressure O2 213.7 mmHg 30.0-50.0 Above high nor mal Venous Partial Pressure O2 [place] ([facility]) venous pH 7.294 units 7.330-7.430 Below low normal Venous pH [place] ([facility]) venous total CO2 7.2 mEq/L 24.0-28.0 Below low normal Venous Total CO2 [place] ([facility]) venous partial pressure CO2 14.3 mmHg 38.0-50.0 Below low nor mal Venous Partial Pressure CO2 [facility] ([facility]) venous standard HCO3 12.3 mEq/L Venous Standard HCO3 [facility] ([facility]) venous HCO3 6.8 mEq/L 23.0-27.0 Below low normal Venous HCO3 [facility] ([facility]) venous base excess -2.0-2.0 Below low normal Venous Base Excess [facility] ([facility]) venous site unknown Venous Site [facility] ([facility]) venous O2 saturation 99.4 % 60.0-80.0 Above high normal Venous O 2 Saturation [facility] ([facility]) ID Date Data Source [id number] 12/10/2020 09:50:00 PM EST [place] ([facility]) Name Value Range Interpretation Code Description Data Claribel rce(s) Supporting Document(s) venous pH 7.294 units 7.330-7.430 Below low normal Venous pH [place] ([facility]) venous HCO3 6.8 mEq/L 23.0-27.0 Below low normal Venous HCO3 [place] ([facility]) venous partial pressure O2 213.7 mmHg 30.0-50.0 Above high nor mal Venous Partial Pressure O2 [place] ([facility]) venous partial pressure CO2 14.3 mmHg 38.0-50.0 Below low nor mal Venous Partial Pressure CO2 [place] ([facility]) venous total CO2 7.2 mEq/L 24.0-28.0 Below low normal Venous Total CO2 [place] ([facility]) venous base excess -2.0-2.0 Below low normal Venous Base Excess [place] ([facility]) venous standard HCO3 12.3 mEq/L Venous Standard HCO3 [place] ([facility]) venous O2 saturation 99.4 % 60.0-80.0 Above high normal Venous O 2 Saturation [place] ([facility]) venous site unknown Venous Site [facility] ([facility]) ID Date Data Source [id number] 12/10/2020 09:50:00 PM EST [place] ([facility]) Name Value Range Interpretation Code Description Data Claribel rce(s) Supporting Document(s) venous pH 7.294 units 7.330-7.430 Below low normal Venous pH [place] ([facility]) venous partial pressure CO2 14.3 mmHg 38.0-50.0 Below low nor mal Venous Partial Pressure CO2 [place] ([facility]) venous partial pressure O2 213.7 mmHg 30.0-50.0 Above high nor mal Venous Partial Pressure O2 [place] ([facility]) venous standard HCO3 12.3 mEq/L Venous Standard HCO3 [place] ([facility]) venous total CO2 7.2 mEq/L 24.0-28.0 Below low normal Venous Total CO2 [place] ([facility]) venous HCO3 6.8 mEq/L 23.0-27.0 Below low normal Venous HCO3 [place] ([facility]) venous base excess -2.0-2.0 Below low normal Venous Base Excess [facility] ([facility]) venous site unknown Venous Site [place] ([facility]) venous O2 saturation 99.4 % 60.0-80.0 Above high normal Venous O 2 Saturation [place] ([facility]) ID Date Data Source [id number] 12/10/2020 09:34:00 PM EST [place] ([facility]) Name Value Range Interpretation Code Description Data Claribel rce(s) Supporting Document(s) bedside glucose 126 mg/dL 70-105 Above high normal Bedside Gluco se [place] ([facility]) ID Date Data Source [id number] 12/10/2020 09:34:00 PM EST [place] ([facility]) Name Value Range Interpretation Code Description Data Claribel rce(s) Supporting Document(s) bedside glucose 126 mg/dL 70-105 Above high normal Bedside Gluco se [place] ([facility]) ID Date Data Source [id number] 12/10/2020 09:34:00 PM EST [place] ([facility]) Name Value Range Interpretation Code Description Data Claribel rce(s) Supporting Document(s) bedside glucose 126 mg/dL 70-105 Above high normal Bedside Gluco se [place] ([facility]) ID Date Data Source [id number] 12/10/2020 09:34:00 PM EST [place] ([facility]) Name Value Range Interpretation Code Description Data Claribel rce(s) Supporting Document(s) bedside glucose 126 mg/dL 70-105 Above high normal Bedside Gluco se [place] ([facility]) ID Date Data Source [id number] 12/10/2020 09:34:00 PM EST [place] ([facility]) Name Value Range Interpretation Code Description Data Claribel rce(s) Supporting Document(s) bedside glucose 126 mg/dL 70-105 Above high normal Bedside Gluco se [place] ([facility]) ID Date Data Source [id number] 12/10/2020 09:34:00 PM EST [place] ([facility]) Name Value Range Interpretation Code Description Data Claribel rce(s) Supporting Document(s) bedside glucose 126 mg/dL 70-105 Above high normal Bedside Gluco se [place] ([facility]) ID Date Data Source [id number] 12/10/2020 08:54:00 PM EST [place] ([facility]) Name Value Range Interpretation Code Description Data Claribel rce(s) Supporting Document(s) ID Date Data Source [id number] 12/10/2020 08:54:00 PM EST [place] ([facility]) Name Value Range Interpretation Code Description Data Claribel rce(s) Supporting Document(s) ID Date Data Source [id number] 12/10/2020 08:54:00 PM EST [place] ([facility]) Name Value Range Interpretation Code Description Data Claribel rce(s) Supporting Document(s) ID Date Data Source [id number] 12/10/2020 08:54:00 PM EST [place] ([facility]) Name Value Range Interpretation Code Description Data Claribel rce(s) Supporting Document(s) ID Date Data Source [id number] 12/10/2020 08:54:00 PM EST [place] ([facility]) Name Value Range Interpretation Code Description Data Claribel rce(s) Supporting Document(s) ID Date Data Source [id number] 12/10/2020 08:54:00 PM EST [place] ([facility]) Name Value Range Interpretation Code Description Data Claribel rce(s) Supporting Document(s) ID Date Data Source [id number] 12/10/2020 08:35:00 PM EST [place] ([facility]) Name Value Range Interpretation Code Description Data Claribel rce(s) Supporting Document(s) ID Date Data Source [id number] 12/10/2020 08:35:00 PM EST [place] ([facility]) Name Value Range Interpretation Code Description Data Claribel rce(s) Supporting Document(s) osmolality serum 315 mOsm/kg 275-295 Above high normal Osmolality Serum [place] ([facility]) ID Date Data Source [id number] 12/10/2020 08:35:00 PM EST [place] ([facility]) Name Value Range Interpretation Code Description Data Claribel rce(s) Supporting Document(s) phosphorus level 2.5 mg/dL 2.5-4.9 Phosphorus Level AT [facility]) ID Date Data Source [id number] 12/10/2020 08:35:00 PM EST [place] ([facility]) Name Value Range Interpretation Code Description Data Claribel rce(s) Supporting Document(s) glucose, fasting 222 mg/dL 70-100 Above high normal Glucose, Fas ting [place] ([facility]) blood urea nitrogen 27 mg/dL 7-18 Above high normal Blood Ure a Nitrogen [place] ([facility]) creatinine for GFR 1.67 mg/dL 0.55-1.30 Above high normal Creatinine for GFR [facility] ([facility]) glomerular filtration rate >60 Below low normal Mariza merular Filtration Rate [facility] ([facility]) sodium level 138 mEq/L 136-145 Sodium Level [place] ([facility]) potassium serum 4.7 mEq/L 3.5-5.1 Potassium Serum [facility] [place] ([facility]) chloride level 110 mEq/L 98-107 Above high normal Chloride Level [place] ([facility]) carbon dioxide level 10 mEq/L 21-32 Below low normal Carbon Di oxide Level [place] ([facility]) calcium level 9.9 mg/dL 8.5-10.1 Calcium Level [place] ( [facility]) anion gap 18 mEq/L 8-16 Above high normal Anion Gap [place] ([facility]) ID Date Data Source [id number] 12/10/2020 08:35:00 PM EST [place] ([facility]) Name Value Range Interpretation Code Description Data Claribel rce(s) Supporting Document(s) glucose, fasting 222 mg/dL 70-100 Above high normal Glucose, Fas ting [place] ([facility]) blood urea nitrogen 27 mg/dL 7-18 Above high normal Blood Ure a Nitrogen [place] ([facility]) sodium level 138 mEq/L 136-145 Sodium Level [place] ([facility]) creatinine for GFR 1.67 mg/dL 0.55-1.30 Above high normal Creatinine for GFR [place] ([facility]) glomerular filtration rate >60 Below low normal Mariza merular Filtration Rate [place] ([facility]) carbon dioxide level 10 mEq/L 21-32 Below low normal Carbon Di oxide Level [place] ([facility]) potassium serum 4.7 mEq/L 3.5-5.1 Potassium Serum [place] ([facility]) chloride level 110 mEq/L 98-107 Above high normal Chloride Level [place] ([facility]) calcium level 9.9 mg/dL 8.5-10.1 Calcium Level [place] ( [facility]) anion gap 18 mEq/L 8-16 Above high normal Anion Gap [place] ([facility]) ID Date Data Source [id number] 12/10/2020 08:35:00 PM EST [place] ([facility]) Name Value Range Interpretation Code Description Data Claribel rce(s) Supporting Document(s) ID Date Data Source [id number] 12/10/2020 08:35:00 PM EST [place] ([facility]) Name Value Range Interpretation Code Description Data Claribel rce(s) Supporting Document(s) osmolality serum 315 mOsm/kg 275-295 Above high normal Osmolality Serum [place] ([facility]) ID Date Data Source [id number] 12/10/2020 08:35:[facility] Name Value Range Interpretation Code Description Data Claribel rce(s) Supporting Document(s) phosphorus level 2.5 mg/dL 2.5-4.9 Phosphorus Level [place] ([facility]) ID Date Data Source [id number] 12/10/2020 08:35:00 PM EST [place] ([facility]) Name Value Range Interpretation Code Description Data Claribel rce(s) Supporting Document(s) blood urea nitrogen 27 mg/dL 7-18 Above high normal Blood Ure a Nitrogen [place] ([facility]) creatinine for GFR 1.67 mg/dL 0.55-1.30 Above high normal Creatinine for GFR [place] ([facility]) glucose, fasting 222 mg/dL 70-100 Above high normal Glucose, Fas ting [place] ([facility]) glomerular filtration rate >60 Below low normal Mariza merular Filtration Rate [place] ([facility]) potassium serum 4.7 mEq/L 3.5-5.1 Potassium Serum AT[facility] NA ([facility]) sodium level 138 mEq/L 136-145 Sodium Level [facility] ([facility]) chloride level 110 mEq/L 98-107 Above high normal Chloride Level [facility] ([facility]) carbon dioxide level 10 mEq/L 21-32 Below low normal Carbon Di oxide Level [facility] ([facility]) anion gap 18 mEq/L 8-16 Above high normal Anion Gap [facility] ([facility]) calcium level 9.9 mg/dL 8.5-10.1 Calcium Level [place] ( [facility]) ID Date Data Source [id number] 12/10/2020 08:35:00 PM EST [place] ([facility]) Name Value Range Interpretation Code Description Data Claribel rce(s) Supporting Document(s) ID Date Data Source [id number] 12/10/2020 08:35:[facility] Name Value Range Interpretation Code Description Data Claribel rce(s) Supporting Document(s) osmolality serum 315 mOsm/kg 275-295 Above high normal Osmolality Serum [facility] ([facility]) ID Date Data Source [id number] 12/10/2020 08:35:00 PM EST [facility] ([facility]) Name Value Range Interpretation Code Description Data Claribel rce(s) Supporting Document(s) phosphorus level 2.5 mg/dL 2.5-4.9 Phosphorus Level AT [facility]) ID Date Data Source [id number] 12/10/2020 08:35:00 PM EST [facility] ([facility]) Name Value Range Interpretation Code Description Data Claribel rce(s) Supporting Document(s) glucose, fasting 222 mg/dL 70-100 Above high normal Glucose, Fas ting [facility] ([facility]) glomerular filtration rate >60 Below low normal Mariza merular Filtration Rate [facility] ([facility]) blood urea nitrogen 27 mg/dL 7-18 Above high normal Blood Ure a Nitrogen [facility] ([facility]) creatinine for GFR 1.67 mg/dL 0.55-1.30 Above high normal Creatinine for GFR [facility] ([facility]) chloride level 110 mEq/L 98-107 Above high normal Chloride Level [facility] ([facility]) potassium serum 4.7 mEq/L 3.5-5.1 Potassium Serum AT[facility] ([facility]) sodium level 138 mEq/L 136-145 Sodium Level [facility] ([facility]) anion gap 18 mEq/L 8-16 Above high normal Anion Gap [facility] ([facility]) carbon dioxide level 10 mEq/L 21-32 Below low normal Carbon Di oxide Level [facility] ([facility]) calcium level 9.9 mg/dL 8.5-10.1 Calcium Level [facility] ( [facility]) ID Date Data Source [id number] 12/10/2020 08:35:00 PM EST [place] ([facility]) Name Value Range Interpretation Code Description Data Claribel rce(s) Supporting Document(s) ID Date Data Source [id number] 12/10/2020 08:35:00 PM EST [place] ([facility]) Name Value Range Interpretation Code Description Data Claribel rce(s) Supporting Document(s) osmolality serum 315 mOsm/kg 275-295 Above high normal Osmolality Serum [place] ([facility]) ID Date Data Source [id number] 12/10/2020 08:35:00 PM EST [facility]) Name Value Range Interpretation Code Description Data Claribel rce(s) Supporting Document(s) phosphorus level 2.5 mg/dL 2.5-4.9 Phosphorus Level AT [place] ([facility]) ID Date Data Source [id number] 12/10/2020 08:35:00 PM EST [facility] ([facility]) Name Value Range Interpretation Code Description Data Claribel rce(s) Supporting Document(s) blood urea nitrogen 27 mg/dL 7-18 Above high normal Blood Ure a Nitrogen [facility] ([facility]) glucose, fasting 222 mg/dL 70-100 Above high normal Glucose, Fas ting [facility] ([facility]) creatinine for GFR 1.67 mg/dL 0.55-1.30 Above high normal Creatinine for GFR [facility] ([facility]) sodium level 138 mEq/L 136-145 Sodium Level [facility] ([facility]) glomerular filtration rate >60 Below low normal Mariza merular Filtration Rate [facility] ([facility]) potassium serum 4.7 mEq/L 3.5-5.1 Potassium Serum [facility] NA ([facility]) calcium level 9.9 mg/dL 8.5-10.1 Calcium Level [facility] ( [facility]) anion gap 18 mEq/L 8-16 Above high normal Anion Gap [place] ([facility]) carbon dioxide level 10 mEq/L 21-32 Below low normal Carbon Di oxide Level [facility] ([facility]) chloride level 110 mEq/L 98-107 Above high normal Chloride Level [place] ([facility]) ID Date Data Source [id number] 12/10/2020 08:35:00 PM EST [facility] ([facility]) Name Value Range Interpretation Code Description Data Claribel rce(s) Supporting Document(s) ID Date Data Source [id number] 12/10/2020 08:35:00 PM EST [facility] ([facility]) Name Value Range Interpretation Code Description Data Claribel rce(s) Supporting Document(s) osmolality serum 315 mOsm/kg 275-295 Above high normal Osmolality Serum [place] ([facility]) ID Date Data Source [id number] 12/10/2020 08:35:00 PM EST [facility] ([facility]) Name Value Range Interpretation Code Description Data Claribel rce(s) Supporting Document(s) phosphorus level 2.5 mg/dL 2.5-4.9 Phosphorus Level AT [facility] ([facility]) ID Date Data Source [id number] 12/10/2020 08:35:00 PM EST [facility] ([facility]) Name Value Range Interpretation Code Description Data Claribel rce(s) Supporting Document(s) ID Date Data Source [id number] 12/10/2020 08:35:00 PM EST [facility] ([facility]) Name Value Range Interpretation Code Description Data Claribel rce(s) Supporting Document(s) osmolality serum 315 mOsm/kg 275-295 Above high normal Osmolality Serum [place] ([facility]) ID Date Data Source [id number] 12/10/2020 08:35:00 PM EST [facility] ([facility]) Name Value Range Interpretation Code Description Data Claribel rce(s) Supporting Document(s) phosphorus level 2.5 mg/dL 2.5-4.9 Phosphorus Level AT [facility] ([facility]) ID Date Data Source [id number] 12/10/2020 08:35:00 PM EST [facility] ([facility]) Name Value Range Interpretation Code Description Data Claribel rce(s) Supporting Document(s) glucose, fasting 222 mg/dL 70-100 Above high normal Glucose, Fas ting [facility] ([facility]) blood urea nitrogen 27 mg/dL 7-18 Above high normal Blood Ure a Nitrogen [facility] ([facility]) glomerular filtration rate >60 Below low normal Mariza merular Filtration Rate [place] ([facility]) creatinine for GFR 1.67 mg/dL 0.55-1.30 Above high normal Creatinine for GFR [facility] ([facility]) chloride level 110 mEq/L 98-107 Above high normal Chloride Level [facility] ([facility]) sodium level 138 mEq/L 136-145 Sodium Level [facility] ([facility]) carbon dioxide level 10 mEq/L 21-32 Below low normal Carbon Di oxide Level [facility] ([facility]) potassium serum 4.7 mEq/L 3.5-5.1 Potassium Serum [facility] NA ([facility]) calcium level 9.9 mg/dL 8.5-10.1 Calcium Level [facility] ( [facility]) anion gap 18 mEq/L 8-16 Above high normal Anion Gap [facility] ([facility]) ID Date Data Source [id number] 12/10/2020 08:27:00 PM EST [place] ([facility]) Name Value Range Interpretation Code Description Data Claribel rce(s) Supporting Document(s) bedside glucose 206 mg/dL 70-105 Above high normal Bedside Gluco se [facility]) ID Date Data Source [id number] 12/10/2020 08:27:00 PM EST [facility] ([facility]) Name Value Range Interpretation Code Description Data Claribel rce(s) Supporting Document(s) bedside glucose 206 mg/dL 70-105 Above high normal Bedside Gluco se [place] ([facility]) ID Date Data Source [id number] 12/10/2020 08:27:00 PM EST [facility] ([facility]) Name Value Range Interpretation Code Description Data Claribel rce(s) Supporting Document(s) bedside glucose 206 mg/dL 70-105 Above high normal [facility] Date Data Source [id number] 12/10/2020 08:27:00 PM [facility] Name Value Range Interpretation Code Description Data Claribel rce(s) Supporting Document(s) bedside glucose 206 mg/dL 70-105 Above high normal Bedside Gluco se [place] ([facility]) ID Date Data Source [id number] 12/10/2020 08:27:00 PM EST [place] ([facility]) Name Value Range Interpretation Code Description Data Claribel rce(s) Supporting Document(s) bedside glucose 206 mg/dL 70-105 Above high normal Bedside Gluco se [place] ([facility]) ID Date Data Source [id number] 12/10/2020 08:27:00 PM EST [place] ([facility]) Name Value Range Interpretation Code Description Data Claribel rce(s) Supporting Document(s) bedside glucose 206 mg/dL 70-105 Above high normal Bedside Gluco se [place] ([facility]) ID Date Data Source [id number] 12/10/2020 07:46:00 PM EST [place] ([facility]) Name Value Range Interpretation Code Description Data Claribel rce(s) Supporting Document(s) sars covid-19 amplification negative negative Sars Cov id-19 Amplification [facility]) ID Date Data Source [id number] 12/10/2020 07:46:00 PM EST [facility]) Name Value Range Interpretation Code Description Data Claribel rce(s) Supporting Document(s) sars covid-19 amplification negative negative Sars Cov id-19 Amplification [facility]) ID Date Data Source [id number] 12/10/2020 07:46:00 PM EST [facility]) Name Value Range Interpretation Code Description Data Claribel rce(s) Supporting Document(s) sars covid-19 amplification negative negative Sars Cov id-19 Amplification [facility]) ID Date Data Source [id number] 12/10/2020 07:46:00 PM EST [place] ([facility]) Name Value Range Interpretation Code Description Data Claribel rce(s) Supporting Document(s) sars covid-19 amplification negative negative Sars Cov id-19 Amplification [facility]) ID Date Data Source [id number] 12/10/2020 07:46:00 PM EST [place] ([facility]) Name Value Range Interpretation Code Description Data Claribel rce(s) Supporting Document(s) sars covid-19 amplification negative negative Sars Cov id-19 Amplification [facility]) ID Date Data Source [id number] 12/10/2020 07:46:00 PM EST [facility] Name Value Range Interpretation Code Description Data Claribel rce(s) Supporting Document(s) SARS coronavirus 2 RNA [Presence] in Res piratory specimen by ANDREE with probe detection NEGATIVE [facility] This lab was ordered by [facility] a nd reported by [facility]. ID Date Data Source [id number] 12/10/2020 07:46:00 PM EST [facility]) Name Value Range Interpretation Code Description Data Claribel rce(s) Supporting Document(s) sars covid-19 amplification negative negative Sars Cov id-19 Amplification [facility]) ID Date Data Source [id number] 12/10/2020 06:53:00 PM EST [facility]) Name Value Range Interpretation Code Description Data Claribel rce(s) Supporting Document(s) bedside glucose 342 mg/dL 70-105 Above high normal Bedside Gluco se [facility]) ID Date Data Source [id number] 12/10/2020 06:53:00 PM EST [facility]) Name Value Range Interpretation Code Description Data Claribel rce(s) Supporting Document(s) bedside glucose 342 mg/dL 70-105 Above high normal Bedside Gluco se [facility] ([facility]) ID Date Data Source [id number] 12/10/2020 06:53:00 PM EST [facility] ([facility]) Name Value Range Interpretation Code Description Data Claribel rce(s) Supporting Document(s) bedside glucose 342 mg/dL 70-105 Above high normal Bedside Gluco se [facility] ([facility]) ID Date Data Source [id number] 12/10/2020 06:53:00 PM EST [facility] ([facility]) Name Value Range Interpretation Code Description Data Claribel rce(s) Supporting Document(s) bedside glucose 342 mg/dL 70-105 Above high normal Bedside Gluco se [facility] ([facility]) ID Date Data Source [id number] 12/10/2020 06:53:00 PM EST [facility] ([facility]) Name Value Range Interpretation Code Description Data Claribel rce(s) Supporting Document(s) bedside glucose 342 mg/dL 70-105 Above high normal Bedside Gluco se [facility] ([facility]) ID Date Data Source [id number] 12/10/2020 06:53:00 PM EST [facility] ([facility]) Name Value Range Interpretation Code Description Data Claribel rce(s) Supporting Document(s) bedside glucose 342 mg/dL 70-105 Above high normal Bedside Gluco se [facility] ([facility]) ID Date Data Source [id number] 12/10/2020 05:58:00 PM EST [facility] ([facility]) Name Value Range Interpretation Code Description Data Claribel rce(s) Supporting Document(s) lipase 58 U/L 73-393 Below low normal Lipase [facility]) ID Date Data Source [id number] 12/10/2020 05:58:00 PM EST [facility] ([facility]) Name Value Range Interpretation Code Description Data Claribel rce(s) Supporting Document(s) magnesium level 2.3 mg/dL 1.8-2.4 Magnesium Level [facility] ([facility]) ID Date Data Source [id number] 12/10/2020 05:58:00 PM EST [facility] ([facility]) Name Value Range Interpretation Code Description Data Claribel rce(s) Supporting Document(s) ALT/SGPT 20 U/L 12-78 ALT/SGPT [facility] ([facility]) AST/SGOT 12 U/L 7-37 AST/SGOT [facility] ([facility]) bilirubin,direct < 0.1 0.0-0.2 Bilirubin,direct AT [facility] ([facility]) bilirubin,total 0.4 mg/dL 0.2-1.0 Bilirubin,total [facility] ([facility]) alkaline phosphatase 108 U/L 45-117 Alkaline Phosph atase [facility] ([facility]) albumin 3.7 gm/dL 3.2-5.2 Albumin [facility] ([facility]) total protein 8.2 gm/dL 6.4-8.2 Total Protein [facility] ( [facility]) albumin/globulin ratio 1.2-2.2 Below low normal Albumin /globulin Ratio [facility] ([facility]) ID Date Data Source [id number] 12/10/2020 05:58:00 PM EST [facility] ([facility]) Name Value Range Interpretation Code Description Data Claribel rce(s) Supporting Document(s) lactic acid sepsis protocol 1.2 mmol/L 0.4-2.0 Lactic A bro Sepsis Protocol [facility] ([facility]) ID Date Data Source [id number] 12/10/2020 05:58:00 PM EST [place] ([facility]) Name Value Range Interpretation Code Description Data Claribel rce(s) Supporting Document(s) red blood count 5.54 10 4.00-5.40 Above high normal Red Blood Cou nt [facility] ([facility]) white blood count 10.7 10 4.0-10.0 Above high normal White Blood Count [facility] ([facility]) hemoglobin 16.3 g/dL 12.0-15.5 Above high normal Hemoglobin [facility] ([facility]) hematocrit 51.1 % 36.0-47.0 Above high normal Hematocrit [facility] ([facility]) mean corpuscular volume 92.2 fL 80.0-96.0 Mean Corpusc ular Volume [facility] ([facility]) mean corpuscular hemoglobin 29.4 pg 27.0-33.0 Mean Cor puscular Hemoglobin [facility] ([facility]) mean corpuscular HGB conc 31.9 g/dL 32.0-36.5 Below low margaux l Mean Corpuscular HGB Conc [facility] ([facility]) red cell distribution width 13.1 % 11.5-14.5 Red Cell Distribution Width [facility] ([facility]) neutrophils % 81.9 % 36.0-66.0 Above high normal Neutrophils % A [facility] ([facility]) platelet count, automated 313 10 150-450 Platelet C ount, Automated [place] ([facility]) mono % 5.4 % 0.0-5.0 Above high normal [place] % [place] ([facility]) lymph % 12.0 % 24.0-44.0 Below low normal Lymph % [facility] ( [facility]) eos % 0.0 % 0.0-3.0 Eos % [facility] ([facility]) baso % 0.4 % 0.0-1.0 Baso % [facility] ([facility]) immature granulocyte % 0.3 % 0-3.0 Immature Gran ulocyte % [facility] ([facility]) nucleated red blood cell % 0.0 % 0-0 Nucleated Red Blood Cell % [facility] ([facility]) neutrophils # 8.8 10 1.5-8.5 Above high normal Neutrophils # A [facility] ([facility]) lymph # 1.3 10 1.5-5.0 Below low normal Lymph # [facility] ( [facility]) mono # 0.6 10 0.0-0.8 [place] # [facility] ([facility]) eos # 0.0 10 0.0-0.5 Eos # [facility] ([facility]) baso # 0.0 10 0.0-0.2 Baso # [facility] ([facility]) ID Date Data Source [id number] 12/10/2020 05:58:00 PM EST [facility] ([facility]) Name Value Range Interpretation Code Description Data Claribel rce(s) Supporting Document(s) lipase 58 U/L 73-393 Below low normal Lipase [facility] ( [facility]) ID Date Data Source [id number] 12/10/2020 05:58:00 PM EST [facility] ([facility]) Name Value Range Interpretation Code Description Data Claribel rce(s) Supporting Document(s) magnesium level 2.3 mg/dL 1.8-2.4 Magnesium Level [facility] ([facility]) ID Date Data Source [id number] 12/10/2020 05:58:00 PM EST [facility] ([facility]) Name Value Range Interpretation Code Description Data Claribel rce(s) Supporting Document(s) AST/SGOT 12 U/L 7-37 AST/SGOT [facility] ([facility]) alkaline phosphatase 108 U/L 45-117 Alkaline Phosph atase [facility] ([facility]) bilirubin,direct < 0.1 0.0-0.2 Bilirubin,direct AT [place] ([facility]) bilirubin,total 0.4 mg/dL 0.2-1.0 Bilirubin,total [facility] ([facility]) ALT/SGPT 20 U/L 12-78 ALT/SGPT [facility] ([facility]) total protein 8.2 gm/dL 6.4-8.2 Total Protein [facility] ( [facility]) albumin 3.7 gm/dL 3.2-5.2 Albumin [facility] ([facility]) albumin/globulin ratio 1.2-2.2 Below low normal Albumin /globulin Ratio [place] ([facility]) ID Date Data Source [id number] 12/10/2020 05:58:00 PM EST [place] ([facility]) Name Value Range Interpretation Code Description Data Claribel rce(s) Supporting Document(s) lactic acid sepsis protocol 1.2 mmol/L 0.4-2.0 Lactic A bro Sepsis Protocol [place] ([facility]) ID Date Data Source [id number] 12/10/2020 05:58:00 PM EST [place] ([facility]) Name Value Range Interpretation Code Description Data Claribel rce(s) Supporting Document(s) hemoglobin 16.3 g/dL 12.0-15.5 Above high normal Hemoglobin [place] ([facility]) red blood count 5.54 10 4.00-5.40 Above high normal Red Blood Cou nt [place] ([facility]) white blood count 10.7 10 4.0-10.0 Above high normal White Blood Count [place] ([facility]) mean corpuscular volume 92.2 fL 80.0-96.0 Mean Corpusc ular Volume [place] ([facility]) hematocrit 51.1 % 36.0-47.0 Above high normal Hematocrit [place] ([facility]) mean corpuscular HGB conc 31.9 g/dL 32.0-36.5 Below low margaux l Mean Corpuscular HGB Conc [facility] ([facility]) mean corpuscular hemoglobin 29.4 pg 27.0-33.0 Mean Cor puscular Hemoglobin [place] ([facility]) red cell distribution width 13.1 % 11.5-14.5 Red Cell [facility] lymph % 12.0 % 24.0-44.0 Below low normal Lymph % [place] ( [facility]) neutrophils % 81.9 % 36.0-66.0 Above high normal Neutrophils % A [facility] ([facility]) platelet count, automated 313 10 150-450 Platelet C ount, Automated [facility] ([facility]) eos % 0.0 % 0.0-3.0 Eos % [facility] ([facility]) baso % 0.4 % 0.0-1.0 Baso % [facility] ([facility]) mono % 5.4 % 0.0-5.0 Above high normal [place] % [facility] ([facility]) nucleated red blood cell % 0.0 % 0-0 Nucleated Red Blood Cell % [facility] ([facility]) immature granulocyte % 0.3 % 0-3.0 Immature Gran ulocyte % [facility] ([facility]) lymph # 1.3 10 1.5-5.0 Below low normal Lymph # [facility] ( [facility]) mono # 0.6 10 0.0-0.8 [place] # [facility] ([facility]) neutrophils # 8.8 10 1.5-8.5 Above high normal Neutrophils # A [facility] ([facility]) eos # 0.0 10 0.0-0.5 Eos # [facility] ([facility]) baso # 0.0 10 0.0-0.2 Baso # [facility] ([facility]) ID Date Data Source [id number] 12/10/2020 05:58:00 PM EST [place] ([facility]) Name Value Range Interpretation Code Description Data Claribel rce(s) Supporting Document(s) lipase 58 U/L 73-393 Below low normal Lipase [facility] ( [facility]) ID Date Data Source [id number] 12/10/2020 05:58:00 PM EST [facility] ([facility]) Name Value Range Interpretation Code Description Data Claribel rce(s) Supporting Document(s) magnesium level 2.3 mg/dL 1.8-2.4 Magnesium Level [facility] ([facility]) ID Date Data Source [id number] 12/10/2020 05:58:00 PM EST [facility] ([facility]) Name Value Range Interpretation Code Description Data Claribel rce(s) Supporting Document(s) ALT/SGPT 20 U/L 12-78 ALT/SGPT [facility] ([facility]) AST/SGOT 12 U/L 7-37 AST/SGOT [facility] ([facility]) bilirubin,direct < 0.1 0.0-0.2 Bilirubin,direct AT [place] ([facility]) bilirubin,total 0.4 mg/dL 0.2-1.0 Bilirubin,total [facility] ([facility]) alkaline phosphatase 108 U/L 45-117 Alkaline Phosph atase [facility] ([facility]) albumin/globulin ratio 1.2-2.2 Below low normal Albumin /globulin Ratio [facility] ([facility]) albumin 3.7 gm/dL 3.2-5.2 Albumin [facility] ([facility]) total protein 8.2 gm/dL 6.4-8.2 Total Protein [facility] ( [facility]) ID Date Data Source [id number] 12/10/2020 05:58:00 PM EST [facility] ([facility]) Name Value Range Interpretation Code Description Data Claribel rce(s) Supporting Document(s) lactic acid sepsis protocol 1.2 mmol/L 0.4-2.0 Lactic A bro Sepsis Protocol [facility] ([facility]) ID Date Data Source [id number] 12/10/2020 05:58:00 PM EST [place] ([facility]) Name Value Range Interpretation Code Description Data Claribel rce(s) Supporting Document(s) red blood count 5.54 10 4.00-5.40 Above high normal Red Blood Cou nt [facility] ([facility]) white blood count 10.7 10 4.0-10.0 Above high normal White Blood Count [facility] ([facility]) mean corpuscular volume 92.2 fL 80.0-96.0 Mean Corpusc ular Volume [facility] ([facility]) hemoglobin 16.3 g/dL 12.0-15.5 Above high normal Hemoglobin [facility] ([facility]) hematocrit 51.1 % 36.0-47.0 Above high normal Hematocrit [facility] ([facility]) mean corpuscular hemoglobin 29.4 pg 27.0-33.0 Mean Cor puscular Hemoglobin [facility] ([facility]) red cell distribution width 13.1 % 11.5-14.5 Red Cell Distribution Width [facility] ([facility]) mean corpuscular HGB conc 31.9 g/dL 32.0-36.5 Below low margaux l Mean Corpuscular HGB Conc [facility] ([facility]) platelet count, automated 313 10 150-450 Platelet C ount, Automated [facility] ([facility]) neutrophils % 81.9 % 36.0-66.0 Above high normal Neutrophils % A [facility] ([facility]) lymph % 12.0 % 24.0-44.0 Below low normal Lymph % [facility] ( [facility]) mono % 5.4 % 0.0-5.0 Above high normal [place] % [facility] ([facility]) eos % 0.0 % 0.0-3.0 Eos % [facility] ([facility]) baso % 0.4 % 0.0-1.0 Baso % [facility] ([facility]) nucleated red blood cell % 0.0 % 0-0 Nucleated Red Blood Cell % [facility] ([facility]) immature granulocyte % 0.3 % 0-3.0 Immature Gran ulocyte % [facility] ([facility]) neutrophils # 8.8 10 1.5-8.5 Above high normal Neutrophils # A [facility] ([facility]) lymph # 1.3 10 1.5-5.0 Below low normal Lymph # [facility] ( [facility]) mono # 0.6 10 0.0-0.8 [place] # [facility] ([facility]) eos # 0.0 10 0.0-0.5 Eos # [facility] ([facility]) baso # 0.0 10 0.0-0.2 Baso # [facility] ([facility]) ID Date Data Source [id number] 12/10/2020 05:58:00 PM EST [facility] ([facility]) Name Value Range Interpretation Code Description Data Claribel rce(s) Supporting Document(s) lipase 58 U/L 73-393 Below low normal Lipase [facility] ( [facility]) ID Date Data Source [id number] 12/10/2020 05:58:00 PM EST [facility] ([facility]) Name Value Range Interpretation Code Description Data Claribel rce(s) Supporting Document(s) magnesium level 2.3 mg/dL 1.8-2.4 Magnesium Level [facility] ([facility]) ID Date Data Source [id number] 12/10/2020 05:58:00 PM EST [facility] ([facility]) Name Value Range Interpretation Code Description Data Claribel rce(s) Supporting Document(s) ALT/SGPT 20 U/L 12-78 ALT/SGPT [facility] ([facility]) AST/SGOT 12 U/L 7-37 AST/SGOT [facility] ([facility]) alkaline phosphatase 108 U/L 45-117 Alkaline Phosph atase [facility] ([facility]) bilirubin,total 0.4 mg/dL 0.2-1.0 Bilirubin,total [facility] ([facility]) bilirubin,direct < 0.1 0.0-0.2 Bilirubin,direct AT [place] ([facility]) total protein 8.2 gm/dL 6.4-8.2 Total Protein [facility] ( [facility]) albumin 3.7 gm/dL 3.2-5.2 Albumin [facility] ([facility]) albumin/globulin ratio 1.2-2.2 Below low normal Albumin /globulin Ratio [facility] ([facility]) ID Date Data Source [id number] 12/10/2020 05:58:00 PM EST [facility] ([facility]) Name Value Range Interpretation Code Description Data Claribel rce(s) Supporting Document(s) lactic acid sepsis protocol 1.2 mmol/L 0.4-2.0 Lactic A bro Sepsis Protocol [place] ([facility]) ID Date Data Source [id number] 12/10/2020 05:58:00 PM EST [place] ([facility]) Name Value Range Interpretation Code Description Data Claribel rce(s) Supporting Document(s) red blood count 5.54 10 4.00-5.40 Above high normal Red Blood Cou nt [place] ([facility]) white blood count 10.7 10 4.0-10.0 Above high normal White Blood Count [place] ([facility]) hemoglobin 16.3 g/dL 12.0-15.5 Above high normal Hemoglobin [place] ([facility]) hematocrit 51.1 % 36.0-47.0 Above high normal Hematocrit [place] ([facility]) mean corpuscular volume 92.2 fL 80.0-96.0 Mean Corpusc ular Volume [place] ([facility]) mean corpuscular hemoglobin 29.4 pg 27.0-33.0 Mean Cor puscular Hemoglobin [place] ([facility]) mean corpuscular HGB conc 31.9 g/dL 32.0-36.5 Below low marg[place] l Mean Corpuscular HGB Conc [place] ([facility]) red cell distribution width 13.1 % 11.5-14.5 Red Cell Distribution Width [place] ([facility]) neutrophils % 81.9 % 36.0-66.0 Above high normal Neutrophils % A [facility] ([facility]) lymph % 12.0 % 24.0-44.0 Below low normal Lymph % [place] ( [facility]) platelet count, automated 313 10 150-450 Platelet C ount, Automated [facility]) mono % 5.4 % 0.0-5.0 Above high normal [place] % [place] ([facility]) eos % 0.0 % 0.0-3.0 Eos % [facility] ([facility]) baso % 0.4 % 0.0-1.0 Baso % [facility] ([facility]) immature granulocyte % 0.3 % 0-3.0 Immature Gran ulocyte % [facility] ([facility]) nucleated red blood cell % 0.0 % 0-0 Nucleated Red Blood Cell % [facility] ([facility]) lymph # 1.3 10 1.5-5.0 Below low normal Lymph # [facility] ( [facility]) neutrophils # 8.8 10 1.5-8.5 Above high normal Neutrophils # A [facility] ([facility]) mono # 0.6 10 0.0-0.8 [place] # [facility] ([facility]) eos # 0.0 10 0.0-0.5 Eos # [facility] ([facility]) baso # 0.0 10 0.0-0.2 Baso # [facility] ([facility]) ID Date Data Source [id number] 12/10/2020 05:58:00 PM EST [facility] ([facility]) Name Value Range Interpretation Code Description Data Claribel rce(s) Supporting Document(s) lipase 58 U/L 73-393 Below low normal Lipase [facility] ( [facility]) ID Date Data Source [id number] 12/10/2020 05:58:00 PM EST [facility] ([facility]) Name Value Range Interpretation Code Description Data Claribel rce(s) Supporting Document(s) magnesium level 2.3 mg/dL 1.8-2.4 Magnesium Level [facility] NA ([facility]) ID Date Data Source [id number] 12/10/2020 05:58:00 PM EST [facility] ([facility]) Name Value Range Interpretation Code Description Data Claribel rce(s) Supporting Document(s) AST/SGOT 12 U/L 7-37 AST/SGOT [facility] ([facility]) alkaline phosphatase 108 U/L 45-117 Alkaline Phosph atase [facility] ([facility]) bilirubin,total 0.4 mg/dL 0.2-1.0 Bilirubin,total [facility] ([facility]) ALT/SGPT 20 U/L 12-78 ALT/SGPT [facility] ([facility]) total protein 8.2 gm/dL 6.4-8.2 Total Protein [facility] ( [facility]) albumin 3.7 gm/dL 3.2-5.2 Albumin [facility] ([facility]) bilirubin,direct < 0.1 0.0-0.2 Bilirubin,direct AT [facility] ([facility]) albumin/globulin ratio 1.2-2.2 Below low normal Albumin /globulin Ratio [facility] ([facility]) ID Date Data Source [id number] 12/10/2020 05:58:00 PM EST [place] ([facility]) Name Value Range Interpretation Code Description Data Claribel rce(s) Supporting Document(s) lactic acid sepsis protocol 1.2 mmol/L 0.4-2.0 Lactic A bro Sepsis Protocol [place] ([facility]) ID Date Data Source [id number] 12/10/2020 05:58:00 PM EST [place] ([facility]) Name Value Range Interpretation Code Description Data Claribel rce(s) Supporting Document(s) white blood count 10.7 10 4.0-10.0 Above high normal White Blood Count [facility] ([facility]) hemoglobin 16.3 g/dL 12.0-15.5 Above high normal Hemoglobin [facility] ([facility]) red blood count 5.54 10 4.00-5.40 Above high normal Red Blood Cou nt [facility] ([facility]) hematocrit 51.1 % 36.0-47.0 Above high normal Hematocrit [facility] ([facility]) mean corpuscular hemoglobin 29.4 pg 27.0-33.0 Mean Cor puscular Hemoglobin [facility] ([facility]) mean corpuscular volume 92.2 fL 80.0-96.0 Mean Corpusc ular Volume [facility] ([facility]) mean corpuscular HGB conc 31.9 g/dL 32.0-36.5 Below low [place] l Mean Corpuscular HGB Conc [facility] ([facility]) red cell distribution width 13.1 % 11.5-14.5 Red Cell Distribution Width [facility] ([facility]) platelet count, automated 313 10 150-450 Platelet C ount, Automated [facility] ([facility]) lymph % 12.0 % 24.0-44.0 Below low normal Lymph % [facility] ( [facility]) neutrophils % 81.9 % 36.0-66.0 Above high normal Neutrophils % A [facility] ([facility]) mono % 5.4 % 0.0-5.0 Above high normal [place] % [facility] ([facility]) baso % 0.4 % 0.0-1.0 Baso % [facility] ([facility]) eos % 0.0 % 0.0-3.0 Eos % [facility] ([facility]) nucleated red blood cell % 0.0 % 0-0 Nucleated Red Blood Cell % [facility] ([facility]) immature granulocyte % 0.3 % 0-3.0 Immature Gran ulocyte % [facility] ([facility]) lymph # 1.3 10 1.5-5.0 Below low normal Lymph # [facility] ( [facility]) neutrophils # 8.8 10 1.5-8.5 Above high normal Neutrophils # A [facility] ([facility]) mono # 0.6 10 0.0-0.8 [place] # [facility] ([facility]) baso # 0.0 10 0.0-0.2 Baso # [facility] ([facility]) eos # 0.0 10 0.0-0.5 Eos # [facility] ([facility]) ID Date Data Source [id number] 12/10/2020 05:58:00 PM EST [facility] ([facility]) Name Value Range Interpretation Code Description Data Claribel rce(s) Supporting Document(s) lipase 58 U/L 73-393 Below low normal Lipase [facility] ( [facility]) ID Date Data Source [id number] 12/10/2020 05:58:00 PM EST [facility] ([facility]) Name Value Range Interpretation Code Description Data Claribel rce(s) Supporting Document(s) magnesium level 2.3 mg/dL 1.8-2.4 Magnesium Level [facility] NA ([facility]) ID Date Data Source [id number] 12/10/2020 05:58:00 PM EST [facility] ([facility]) Name Value Range Interpretation Code Description Data Claribel rce(s) Supporting Document(s) AST/SGOT 12 U/L 7-37 AST/SGOT [facility] ([facility]) alkaline phosphatase 108 U/L 45-117 Alkaline Phosph atase [facility] ([facility]) ALT/SGPT 20 U/L 12-78 ALT/SGPT [facility] ([facility]) bilirubin,total 0.4 mg/dL 0.2-1.0 Bilirubin,total [facility] ([facility]) bilirubin,direct < 0.1 0.0-0.2 Bilirubin,direct AT [facility] ([facility]) albumin 3.7 gm/dL 3.2-5.2 Albumin [facility] ([facility]) total protein 8.2 gm/dL 6.4-8.2 Total Protein [facility] ( [facility]) albumin/globulin ratio 1.2-2.2 Below low normal Albumin /globulin Ratio [facility] ([facility]) ID Date Data Source [id number] 12/10/2020 05:58:00 PM EST [facility] ([facility]) Name Value Range Interpretation Code Description Data Claribel rce(s) Supporting Document(s) lactic acid sepsis protocol 1.2 mmol/L 0.4-2.0 Lactic A bro Sepsis Protocol [facility] ([facility]) ID Date Data Source [id number] 12/10/2020 05:58:00 PM EST [place] ([facility]) Name Value Range Interpretation Code Description Data Claribel rce(s) Supporting Document(s) white blood count 10.7 10 4.0-10.0 Above high normal White Blood Count [facility] ([facility]) hemoglobin 16.3 g/dL 12.0-15.5 Above high normal Hemoglobin [facility] ([facility]) red blood count 5.54 10 4.00-5.40 Above high normal Red Blood Cou nt [facility] ([facility]) mean corpuscular volume 92.2 fL 80.0-96.0 Mean Corpusc ular Volume [facility] ([facility]) hematocrit 51.1 % 36.0-47.0 Above high normal Hematocrit [place] ([facility]) mean corpuscular hemoglobin 29.4 pg 27.0-33.0 Mean Cor puscular Hemoglobin [place] ([facility]) platelet count, automated 313 10 150-450 Platelet C ount, Automated [facility] ([facility]) mean corpuscular HGB conc 31.9 g/dL 32.0-36.5 Below low [place] Mean Corpuscular HGB Conc [place] ([facility]) red cell distribution width 13.1 % 11.5-14.5 Red Cell Distribution Width [facility] ([facility]) lymph % 12.0 % 24.0-44.0 Below low normal Lymph % [place] ( [facility]) neutrophils % 81.9 % 36.0-66.0 Above high normal Neutrophils % A [facility] ([facility]) mono % 5.4 % 0.0-5.0 Above high normal [place] % [facility] ([facility]) eos % 0.0 % 0.0-3.0 Eos % [facility] ([facility]) baso % 0.4 % 0.0-1.0 Baso % [facility] ([facility]) immature granulocyte % 0.3 % 0-3.0 Immature Gran ulocyte % [facility] ([facility]) neutrophils # 8.8 10 1.5-8.5 Above high normal Neutrophils # A [facility] ([facility]) lymph # 1.3 10 1.5-5.0 Below low normal Lymph # [facility] ( [facility]) nucleated red blood cell % 0.0 % 0-0 Nucleated Red Blood Cell % [facility] ([facility]) eos # 0.0 10 0.0-0.5 Eos # [facility] ([facility]) mono # 0.6 10 0.0-0.8 [place] # [facility] ([facility]) baso # 0.0 10 0.0-0.2 Baso # [facility] ([facility]) ID Date Data Source [id number] 12/10/2020 05:56:00 PM EST [facility] ([facility]) Name Value Range Interpretation Code Description Data Claribel rce(s) Supporting Document(s) bedside glucose 322 mg/dL 70-105 Above high normal Bedside Gluco se [place] ([facility]) ID Date Data Source [id number] 12/10/2020 05:56:00 PM EST [facility] ([facility]) Name Value Range Interpretation Code Description Data Claribel rce(s) Supporting Document(s) bedside glucose 322 mg/dL 70-105 Above high normal Bedside Gluco se [place] ([facility]) ID Date Data Source [id number] 12/10/2020 05:56:00 PM EST [facility] ([facility]) Name Value Range Interpretation Code Description Data Claribel rce(s) Supporting Document(s) bedside glucose 322 mg/dL 70-105 Above high normal Bedside Gluco se [facility] ([facility]) ID Date Data Source [id number] 12/10/2020 05:56:00 PM EST [facility] ([facility]) Name Value Range Interpretation Code Description Data Claribel rce(s) Supporting Document(s) bedside glucose 322 mg/dL 70-105 Above high normal Bedside Gluco se [facility] ([facility]) ID Date Data Source [id number] 12/10/2020 05:56:00 PM EST [facility] ([facility]) Name Value Range Interpretation Code Description Data Claribel rce(s) Supporting Document(s) bedside glucose 322 mg/dL 70-105 Above high normal Bedside Gluco se [facility] ([facility]) ID Date Data Source [id number] 12/10/2020 05:56:00 PM EST [facility] ([facility]) Name Value Range Interpretation Code Description Data Claribel rce(s) Supporting Document(s) bedside glucose 322 mg/dL 70-105 Above high normal Bedside Gluco se [place] ([facility]) ID Date Data Source [id number] 12/10/2020 05:41:00 PM EST [facility] ([facility]) Name Value Range Interpretation Code Description Data Claribel rce(s) Supporting Document(s) Hemoglobin A1c/Hemoglobin.total in Blood 11.1 % Hemoglobin a1C [place] ([facility]) estimated average glucose 272 mg/dL 60-110 Above high norm al Estimated Average Glucose [facility]) ID Date Data Source [id number] 12/10/2020 05:41:00 PM EST [facility] ([facility]) Name Value Range Interpretation Code Description Data Claribel rce(s) Supporting Document(s) Hemoglobin A1c/Hemoglobin.total in Blood 11.1 % Hemoglobin a1C [place] ([facility]) estimated average glucose 272 mg/dL 60-110 Above high norm al Estimated Average Glucose [place] ([facility]) ID Date Data Source [id number] 12/10/2020 05:41:00 [facility] Name Value Range Interpretation Code Description Data Claribel rce(s) Supporting Document(s) Hemoglobin A1c/Hemoglobin.total in Blood 11.1 % Hemoglobin a1C [place] ([facility]) estimated average glucose 272 mg/dL 60-110 Above high norm al Estimated Average Glucose [facility] ([facility]) ID Date Data Source [id number] 12/10/2020 05:41:00 PM EST [facility] ([facility]) Name Value Range Interpretation Code Description Data Claribel rce(s) Supporting Document(s) Hemoglobin A1c/Hemoglobin.total in Blood 11.1 % Hemoglobin a1C [facility] ([facility]) estimated average glucose 272 mg/dL 60-110 Above high norm al Estimated Average Glucose [place] ([facility]) ID Date Data Source [id number] 12/10/2020 05:41:00 PM EST [facility] ([facility]) Name Value Range Interpretation Code Description Data Claribel rce(s) Supporting Document(s) estimated average glucose 272 mg/dL 60-110 Above high norm al Estimated Average Glucose [place] ([facility]) Hemoglobin A1c/Hemoglobin.total in Blood 11.1 % Hemoglobin a1C [place] ([facility]) ID Date Data Source [id number] 12/10/2020 05:41:00 PM EST [facility] ([facility]) Name Value Range Interpretation Code Description Data Claribel rce(s) Supporting Document(s) estimated average glucose 272 mg/dL 60-110 Above high norm al Estimated Average Glucose [facility] ([facility]) Hemoglobin A1c/Hemoglobin.total in Blood 11.1 % Hemoglobin a1C [place] ([facility]) ID Date Data Source [id number] 12/10/2020 05:09:00 PM EST [facility] ([facility]) Name Value Range Interpretation Code Description Data Claribel rce(s) Supporting Document(s) acetone/ketone > 46.00 <2.81 Above high normal Acetone/ketone [facility]) ID Date Data Source [id number] 12/10/2020 05:09:00 PM EST [facility] ([facility]) Name Value Range Interpretation Code Description Data Claribel rce(s) Supporting Document(s) acetone/ketone > 46.00 <2.81 Above high normal Acetone/ketone [facility] ([facility]) ID Date Data Source [id number] 12/10/2020 05:09:00 PM EST [facility] ([facility]) Name Value Range Interpretation Code Description Data Claribel rce(s) Supporting Document(s) acetone/ketone > 46.00 <2.81 Above high normal Acetone/ketone [facility] ([facility]) ID Date Data Source [id number] 12/10/2020 05:09:00 PM EST [facility] ([facility]) Name Value Range Interpretation Code Description Data Claribel rce(s) Supporting Document(s) acetone/ketone > 46.00 <2.81 Above high normal Acetone/ketone [facility] ([facility]) ID Date Data Source [id number] 12/10/2020 05:09:00 PM EST [facility] ([facility]) Name Value Range Interpretation Code Description Data Claribel rce(s) Supporting Document(s) acetone/ketone > 46.00 <2.81 Above high normal Acetone/ketone [facility] ([facility]) ID Date Data Source [id number] 12/10/2020 05:09:00 PM EST [facility] ([facility]) Name Value Range Interpretation Code Description Data Claribel rce(s) Supporting Document(s) acetone/ketone > 46.00 <2.81 Above high normal Acetone/ketone [facility] ([facility]) ID Date Data Source [id number] 12/10/2020 05:08:00 PM EST [facility] ([facility]) Name Value Range Interpretation Code Description Data Claribel rce(s) Supporting Document(s) ABG pH (arterial) 7.117 units 7.350-7.450 Below low normal ABG pH (Ar terial) [place] ([facility]) ABG partial pressure O2 125.1 mmHg 75.0-100.0 Above high normal ABG Partial Pressure O2 [place] ([facility]) ABG partial pressure CO2 16.7 mmHg 35.0-45.0 Below low normal ABG Partial Pressure CO2 [place] ([facility]) ABG total CO2 5.8 mEq/L 22.0-29.0 Below low normal ABG Total CO2 AT [facility]) ABG base excess -2.0-2.0 Below low normal ABG Base Exces s [place] ([facility]) ABG HCO3 5.3 mEq/L 22.0-26.0 Below low normal Abg Hco3 [place] ( [facility]) ABG standard HCO3 9.1 mEq/L 22.0-26.0 Below low normal ABG Standard HCO3 [place] ([facility]) ABG O2 saturation 98.2 % 95.0-99.0 ABG O2 Saturation [facility]) ID Date Data Source [id number] 12/10/2020 05:08:00 PM EST [facility]) Name Value Range Interpretation Code Description Data Claribel rce(s) Supporting Document(s) ABG pH (arterial) 7.117 units 7.350-7.450 Below low normal ABG pH (Ar terial) [place] ([facility]) ABG partial pressure CO2 16.7 mmHg 35.0-45.0 Below low normal ABG Partial Pressure CO2 [place] ([facility]) ABG total CO2 5.8 mEq/L 22.0-29.0 Below low normal ABG Total CO2 AT [facility]) ABG partial pressure O2 125.1 mmHg 75.0-100.0 Above high normal ABG Partial Pressure O2 [facility]) ABG standard HCO3 9.1 mEq/L 22.0-26.0 Below low normal ABG Standard HCO3 [place] ([facility]) ABG HCO3 5.3 mEq/L 22.0-26.0 Below low normal Abg Hco3 [facility] ( [facility]) ABG base excess -2.0-2.0 Below low normal ABG Base Exces s [facility] [facility] ABG O2 saturation 98.2 % 95.0-99.0 ABG O2 Saturation [facility] ([facility]) ID Date Data Source [id number] 12/10/2020 05:08:00 PM EST [facility] ([facility]) Name Value Range Interpretation Code Description Data Claribel rce(s) Supporting Document(s) ABG pH (arterial) 7.117 units 7.350-7.450 Below low normal ABG pH (Ar terial) [facility] ([facility]) ABG partial pressure CO2 16.7 mmHg 35.0-45.0 Below low normal ABG Partial Pressure CO2 [facility] ([facility]) ABG partial pressure O2 125.1 mmHg 75.0-100.0 Above high normal ABG Partial Pressure O2 [place] ([facility]) ABG total CO2 5.8 mEq/L 22.0-29.0 Below low normal ABG Total CO2 AT [facility] ([facility]) ABG HCO3 5.3 mEq/L 22.0-26.0 Below low normal Abg Hco3 [facility] ( [facility]) ABG base excess -2.0-2.0 Below low normal ABG Base Exces s [facility] ([facility]) ABG standard HCO3 9.1 mEq/L 22.0-26.0 Below low normal ABG Standard HCO3 [facility] ([facility]) ABG O2 saturation 98.2 % 95.0-99.0 ABG O2 Saturation [facility] ([facility]) ID Date Data Source [id number] 12/10/2020 05:08:00 PM EST [facility] ([facility]) Name Value Range Interpretation Code Description Data Claribel rce(s) Supporting Document(s) ABG partial pressure CO2 16.7 mmHg 35.0-45.0 Below low normal ABG Partial Pressure CO2 [facility] ([facility]) ABG pH (arterial) 7.117 units 7.350-7.450 Below low normal ABG pH (Ar terial) [place] ([facility]) ABG partial pressure O2 125.1 mmHg 75.0-100.0 Above high normal ABG Partial Pressure O2 [place] ([facility]) ABG total CO2 5.8 mEq/L 22.0-29.0 Below low normal ABG Total CO2 AT [facility]) ABG standard HCO3 9.1 mEq/L 22.0-26.0 Below low normal ABG Standard HCO3 [place] ([facility]) ABG base excess -2.0-2.0 Below low normal ABG Base Exces s [place] ([facility]) ABG HCO3 5.3 mEq/L 22.0-26.0 Below low normal Abg Hco3 [place] ( [facility]) ABG O2 saturation 98.2 % 95.0-99.0 ABG O2 Saturation [facility]) ID Date Data Source [id number] 12/10/2020 05:08:00 PM EST [place] ([facility]) Name Value Range Interpretation Code Description Data Claribel rce(s) Supporting Document(s) ABG partial pressure O2 125.1 mmHg 75.0-100.0 Above high normal ABG Partial Pressure O2 [place] ([facility]) ABG pH (arterial) 7.117 units 7.350-7.450 Below low normal ABG pH (Ar terial) [place] ([facility]) ABG partial pressure CO2 16.7 mmHg 35.0-45.0 Below low normal ABG Partial Pressure CO2 [place] ([facility]) ABG HCO3 5.3 mEq/L 22.0-26.0 Below low normal Abg Hco3 [facility] ( [facility]) ABG total CO2 5.8 mEq/L 22.0-29.0 Below low normal ABG Total CO2 AT [facility]) ABG base excess -2.0-2.0 Below low normal ABG Base Exces s [place] ([facility]) ABG standard HCO3 9.1 mEq/L 22.0-26.0 Below low normal ABG Standard HCO3 [facility] ([facility]) ABG O2 saturation 98.2 % 95.0-99.0 ABG O2 Saturation [facility] ([facility]) ID Date Data Source [id number] 12/10/2020 05:08:00 PM EST [facility] ([facility]) Name Value Range Interpretation Code Description Data Claribel rce(s) Supporting Document(s) ABG partial pressure CO2 16.7 mmHg 35.0-45.0 Below low normal ABG Partial Pressure CO2 [place] ([facility]) ABG partial pressure O2 125.1 mmHg 75.0-100.0 Above high normal ABG Partial Pressure O2 [place] ([facility]) ABG pH (arterial) 7.117 units 7.350-7.450 Below low normal ABG pH (Ar terial) [facility] ([facility]) ABG HCO3 5.3 mEq/L 22.0-26.0 Below low normal Abg Hco3 [place] ( [facility]) ABG total CO2 5.8 mEq/L 22.0-29.0 Below low normal ABG Total CO2 AT [facility]) ABG base excess -2.0-2.0 Below low normal ABG Base Exces s [place] ([facility]) ABG standard HCO3 9.1 mEq/L 22.0-26.0 Below low normal ABG Standard HCO3 [facility] ([facility]) ABG O2 saturation 98.2 % 95.0-99.0 ABG O2 Saturation [place] ([facility]) ID Date Data Source [id number] 12/10/2020 02:24:00 PM EST [facility] ([facility]) Name Value Range Interpretation Code Description Data Claribel rce(s) Supporting Document(s) istat B-HCG < 5.0 Istat B-HCG [facility] ([facility]) ID Date Data Source [id number] 12/10/2020 02:24:00 PM EST [facility] ([facility]) Name Value Range Interpretation Code Description Data Claribel rce(s) Supporting Document(s) istat B-HCG < 5.0 Istat B-HCG [facility] ([facility]) ID Date Data Source [id number] 12/10/2020 02:24:00 PM EST [facility] ([facility]) Name Value Range Interpretation Code Description Data Claribel rce(s) Supporting Document(s) istat B-HCG < 5.0 Istat B-HCG [facility] ([facility]) ID Date Data Source [id number] 12/10/2020 02:24:00 PM EST [facility] ([facility]) Name Value Range Interpretation Code Description Data Claribel rce(s) Supporting Document(s) istat B-HCG < 5.0 Istat B-HCG [facility] ([facility]) ID Date Data Source [id number] 12/10/2020 02:24:00 PM EST [facility] ([facility]) Name Value Range Interpretation Code Description Data Claribel rce(s) Supporting Document(s) istat B-HCG < 5.0 Istat B-HCG [facility] ([facility]) ID Date Data Source [id number] 12/10/2020 02:24:00 PM EST [facility] ([facility]) Name Value Range Interpretation Code Description Data Claribel rce(s) Supporting Document(s) istat B-HCG < 5.0 Istat B-HCG [facility] ([facility]) ID Date Data Source [id number] 12/10/2020 02:21:00 PM EST [facility] ([facility]) Name Value Range Interpretation Code Description Data Claribel rce(s) Supporting Document(s) istat HCT 46.0 % 38.0-51.0 Istat HCT [facility] ([facility]) istat sodium 136 mEq/L 136-145 Istat Sodium [facility] ([facility]) istat glucose 290 mg/dL 70-105 Above high normal Istat Glucose A [facility] ([facility]) istat potassium 4.8 mEq/L 3.5-5.1 Istat Potassium [facility] ([facility]) istat Ca++ 5.6 mg/dL 4.5-5.3 Above high normal Istat Ca++ [place] ([facility]) istat CO2 12.0 mm/L 23.0-27.0 Below low normal Istat CO2 [facility] ( [facility]) istat chloride 109 mEq/L 98-109 Istat Chloride [facility] ([facility]) istat BUN 25 mg/dL 8-26 Istat BUN [facility] ([facility]) istat creatinine 1.1 mg/dL 0.6-1.3 Istat Creatinine AT [facility] ([facility]) ID Date Data Source [id number] 12/10/2020 02:21:00 PM EST [facility] ([facility]) Name Value Range Interpretation Code Description Data Claribel rce(s) Supporting Document(s) istat HCT 46.0 % 38.0-51.0 Istat HCT [facility] ([facility]) istat glucose 290 mg/dL 70-105 Above high normal Istat Glucose A [facility] ([facility]) istat sodium 136 mEq/L 136-145 Istat Sodium [facility] ([facility]) istat chloride 109 mEq/L 98-109 Istat Chloride [facility] ([facility]) istat potassium 4.8 mEq/L 3.5-5.1 Istat Potassium [facility] [place] ([facility]) istat Ca++ 5.6 mg/dL 4.5-5.3 Above high normal Istat Ca++ [facility] ([facility]) istat BUN 25 mg/dL 8-26 Istat BUN [facility] ([facility]) istat CO2 12.0 mm/L 23.0-27.0 Below low normal Istat CO2 [place] ( [facility]) istat creatinine 1.1 mg/dL 0.6-1.3 Istat Creatinine AT [facility]) ID Date Data Source [id number] 12/10/2020 02:21:00 PM EST [facility] ([facility]) Name Value Range Interpretation Code Description Data Claribel rce(s) Supporting Document(s) istat HCT 46.0 % 38.0-51.0 Istat HCT [facility] ([facility]) istat glucose 290 mg/dL 70-105 Above high normal Istat Glucose A [place] ([facility]) istat sodium 136 mEq/L 136-145 Istat Sodium [place] ([facility]) istat potassium 4.8 mEq/L 3.5-5.1 Istat Potassium [facility] [place] ([facility]) istat Ca++ 5.6 mg/dL 4.5-5.3 Above high normal Istat Ca++ [place] ([facility]) istat CO2 12.0 mm/L 23.0-27.0 Below low normal Istat CO2 [place] ( [facility]) istat chloride 109 mEq/L 98-109 Istat Chloride [facility] ([facility]) istat BUN 25 mg/dL 8-26 Istat BUN [facility] ([facility]) istat creatinine 1.1 mg/dL 0.6-1.3 Istat Creatinine AT [facility]) ID Date Data Source [id number] 12/10/2020 02:21:00 PM EST [facility] ([facility]) Name Value Range Interpretation Code Description Data Claribel rce(s) Supporting Document(s) istat HCT 46.0 % 38.0-51.0 Istat HCT [facility] ([facility]) istat glucose 290 mg/dL 70-105 Above high normal Istat Glucose A [facility] ([facility]) istat Ca++ 5.6 mg/dL 4.5-5.3 Above high normal Istat Ca++ [facility] ([facility]) istat sodium 136 mEq/L 136-145 Istat Sodium [facility] ([facility]) istat potassium 4.8 mEq/L 3.5-5.1 Istat Potassium [facility] [place] ([facility]) istat CO2 12.0 mm/L 23.0-27.0 Below low normal Istat CO2 [facility] ( [facility]) istat chloride 109 mEq/L 98-109 Istat Chloride [facility] ([facility]) istat creatinine 1.1 mg/dL 0.6-1.3 Istat Creatinine AT [facility] ([facility]) istat BUN 25 mg/dL 8-26 Istat BUN [facility] ([facility]) ID Date Data Source [id number] 12/10/2020 02:21:00 PM EST [place] ([facility]) Name Value Range Interpretation Code Description Data Claribel rce(s) Supporting Document(s) istat glucose 290 mg/dL 70-105 Above high normal Istat Glucose A [facility] ([facility]) istat HCT 46.0 % 38.0-51.0 Istat HCT [facility] ([facility]) istat sodium 136 mEq/L 136-145 Istat Sodium [facility] ([facility]) istat potassium 4.8 mEq/L 3.5-5.1 Istat Potassium [facility] ([facility]) istat CO2 12.0 mm/L 23.0-27.0 Below low normal Istat CO2 [place] ( [facility]) istat chloride 109 mEq/L 98-109 Istat Chloride [facility] ([facility]) istat Ca++ 5.6 mg/dL 4.5-5.3 Above high normal Istat Ca++ [facility] ([facility]) istat BUN 25 mg/dL 8-26 Istat BUN [facility] ([facility]) istat creatinine 1.1 mg/dL 0.6-1.3 Istat Creatinine AT [facility]) ID Date Data Source [id number] 12/10/2020 02:21:00 PM EST [facility] ([facility]) Name Value Range Interpretation Code Description Data Claribel rce(s) Supporting Document(s) istat glucose 290 mg/dL 70-105 Above high normal Istat Glucose A [facility] ([facility]) istat HCT 46.0 % 38.0-51.0 Istat HCT [place] ([facility]) istat potassium 4.8 mEq/L 3.5-5.1 Istat Potassium [facility] ([facility]) istat sodium 136 mEq/L 136-145 Istat Sodium [facility] ([facility]) istat CO2 12.0 mm/L 23.0-27.0 Below low normal Istat CO2 [place] ( [facility]) istat chloride 109 mEq/L 98-109 Istat Chloride [facility] ([facility]) istat Ca++ 5.6 mg/dL 4.5-5.3 Above high normal Istat Ca++ [facility] ([facility]) istat creatinine 1.1 mg/dL 0.6-1.3 Istat Creatinine AT [facility] ([facility]) istat BUN 25 mg/dL 8-26 Istat BUN [facility] ([facility]) ID Date Data Source [id number] 12/10/2020 01:34:00 PM EST [facility] ([facility]) Name Value Range Interpretation Code Description Data Claribel rce(s) Supporting Document(s) ID Date Data Source [id number] 12/10/2020 01:34:00 PM EST [place] ([facility]) Name Value Range Interpretation Code Description Data Claribel rce(s) Supporting Document(s) appearance, urine rfx hazy clear Appearance, Ur ine Rfx [place] ([facility]) pH,urine rfx 5.0 units 5.0-9.0 pH,urine Rfx [place] ([facility]) color, urine rfx yellow yellow Color, Urine Rfx AT [place] ([facility]) protein, urine auto rfx 3+ negative Above high normal Prote in, Urine Auto Rfx [place] ([facility]) specific gravity ur auto rfx 1.002-1.035 Specif ic [place] Ur Auto Rfx [place] ([facility]) glucose, urine (UA) auto rfx 3+ negative Above high n ormal Glucose, Urine (UA) Auto Rfx [place] ([facility]) ketone, urine auto rfx 2+ negative Above high normal Ketone , Urine Auto Rfx [place] ([facility]) urobilinogen, urine auto rfx 0.2 mg/dL 0.0-2.0 Urobili nogen, Urine Auto Rfx [place] ([facility]) bilirubin, urine auto rfx negative negative Bilirubin, Urine Auto Rfx [place] ([facility]) leukocyte esterase ur auto rfx 2+ negative Above high normal Leukocyte Esterase Ur Auto Rfx [place] ([facility]) nitrite, urine auto rfx negative negative Nitrite, Uri ne Auto Rfx [place] ([facility]) WBC, urine auto rfx 16 /hpf 0-3 Above high normal WBC, Urin e Auto Rfx [place] ([facility]) blood, urine blood rfx 2+ negative Above high normal Blood, Urine Blood Rfx [place] ([facility]) bacteria, urine auto rfx 1+ negative Above high normal Bact eria, Urine Auto Rfx [place] ([facility]) RBC, urine auto rfx 7 /hpf 0-3 Above high normal RBC, Urin e Auto Rfx [place] ([facility]) mucus, urine rfx small negative Mucus, Urine Rfx AT [facility] ([facility]) squam epithelial cell ur aurfx 1 /hpf 0-6 Squam Epithelial Cell Ur Aurfx [place] ([facility]) hyaline cast, urine auto rfx 0 /lpf 0-1 Hyaline Cast, Urine Auto Rfx [place] ([facility]) ID Date Data Source [id number] 12/10/2020 01:34:00 PM EST [place] ([facility]) Name Value Range Interpretation Code Description Data Claribel rce(s) Supporting Document(s) ID Date Data Source [id number] 12/10/2020 01:34:00 PM EST [place] ([facility]) Name Value Range Interpretation Code Description Data Claribel rce(s) Supporting Document(s) appearance, urine rfx hazy clear Appearance, Ur ine Rfx [place] ([facility]) color, urine rfx yellow yellow Color, Urine Rfx AT [facility] ([facility]) specific gravity ur auto rfx 1.002-1.035 Specif ic [place] Ur Auto Rfx [place] ([facility]) pH,urine rfx 5.0 units 5.0-9.0 pH,urine Rfx [facility] ([facility]) protein, urine auto rfx 3+ negative Above high normal Prote in, Urine Auto Rfx [place] ([facility]) glucose, urine (UA) auto rfx 3+ negative Above high n ormal Glucose, Urine (UA) Auto Rfx [place] ([facility]) ketone, urine auto rfx 2+ negative Above high normal Ketone , Urine Auto Rfx [place] ([facility]) nitrite, urine auto rfx negative negative Nitrite, Uri ne Auto Rfx [place] ([facility]) bilirubin, urine auto rfx negative negative Bilirubin, Urine Auto Rfx [place] ([facility]) urobilinogen, urine auto rfx 0.2 mg/dL 0.0-2.0 Urobili nogen, Urine Auto Rfx [place] ([facility]) blood, urine blood rfx 2+ negative Above high normal Blood, Urine Blood Rfx [facility] ([facility]) leukocyte esterase ur auto rfx 2+ negative Above high normal Leukocyte Esterase Ur Auto Rfx [facility] ([facility]) WBC, urine auto rfx 16 /hpf 0-3 Above high normal WBC, Urin e Auto Rfx [place] ([facility]) RBC, urine auto rfx 7 /hpf 0-3 Above high normal RBC, Urin e Auto Rfx [place] ([facility]) bacteria, urine auto rfx 1+ negative Above high normal Bact eria, Urine Auto Rfx [place] ([facility]) squam epithelial cell ur aurfx 1 /hpf 0-6 Squam Epithelial Cell Ur Aurfx [place] ([facility]) mucus, urine rfx small negative Mucus, Urine Rfx AT [facility] ([facility]) hyaline cast, urine auto rfx 0 /lpf 0-1 Hyaline Cast, Urine Auto Rfx [place] ([facility]) ID Date Data Source [id number] 12/10/2020 01:34:00 PM EST [place] ([facility]) Name Value Range Interpretation Code Description Data Claribel rce(s) Supporting Document(s) ID Date Data Source [id number] 12/10/2020 01:34:00 PM EST [place] ([facility]) Name Value Range Interpretation Code Description Data Claribel rce(s) Supporting Document(s) appearance, urine rfx hazy clear Appearance, Ur ine Rfx [place] ([facility]) color, urine rfx yellow yellow Color, Urine Rfx AT [facility] ([facility]) pH,urine rfx 5.0 units 5.0-9.0 pH,urine Rfx [place] ([facility]) glucose, urine (UA) auto rfx 3+ negative Above high n ormal Glucose, Urine (UA) Auto Rfx [place] ([facility]) specific gravity ur auto rfx 1.002-1.035 Specif ic [place] Ur Auto Rfx [place] ([facility]) protein, urine auto rfx 3+ negative Above high normal Prote in, Urine Auto Rfx [place] ([facility]) ketone, urine auto rfx 2+ negative Above high normal Ketone , Urine Auto Rfx [place] ([facility]) urobilinogen, urine auto rfx 0.2 mg/dL 0.0-2.0 Urobili nogen, Urine Auto Rfx [place] ([facility]) bilirubin, urine auto rfx negative negative Bilirubin, Urine Auto Rfx [place] ([facility]) nitrite, urine auto rfx negative negative Nitrite, Uri ne Auto Rfx [place] ([facility]) leukocyte esterase ur auto rfx 2+ negative Above high normal Leukocyte Esterase Ur Auto Rfx [place] ([facility]) blood, urine blood rfx 2+ negative Above high normal Blood, Urine Blood Rfx [place] ([facility]) RBC, urine auto rfx 7 /hpf 0-3 Above high normal RBC, Urin e Auto Rfx [place] ([facility]) WBC, urine auto rfx 16 /hpf 0-3 Above high normal WBC, Urin e Auto Rfx [place] ([facility]) bacteria, urine auto rfx 1+ negative Above high normal Bact eria, Urine Auto Rfx [place] ([facility]) squam epithelial cell ur aurfx 1 /hpf 0-6 Squam Epithelial Cell Ur Aurfx [facility] ([facility]) mucus, urine rfx small negative Mucus, Urine Rfx AT [facility] ([facility]) hyaline cast, urine auto rfx 0 /lpf 0-1 Hyaline Cast, Urine Auto Rfx [place] ([facility]) ID Date Data Source [id number] 12/10/2020 01:34:00 PM EST [place] ([facility]) Name Value Range Interpretation Code Description Data Claribel rce(s) Supporting Document(s) ID Date Data Source [id number] 12/10/2020 01:34:00 PM EST [facility] ([facility]) Name Value Range Interpretation Code Description Data Claribel rce(s) Supporting Document(s) appearance, urine rfx hazy clear Appearance, Ur ine Rfx [place] ([facility]) pH,urine rfx 5.0 units 5.0-9.0 pH,urine Rfx [facility] color, urine rfx yellow yellow Color, Urine Rfx AT [place] ([facility]) glucose, urine (UA) auto rfx 3+ negative Above high n ormal Glucose, Urine (UA) Auto Rfx [place] ([facility]) protein, urine auto rfx 3+ negative Above high normal Prote in, Urine Auto Rfx [place] ([facility]) specific gravity ur auto rfx 1.002-1.035 Specif ic [place] Ur Auto Rfx [facility] ([facility]) urobilinogen, urine auto rfx 0.2 mg/dL 0.0-2.0 Urobili nogen, Urine Auto Rfx [place] ([facility]) ketone, urine auto rfx 2+ negative Above high normal Ketone , Urine Auto Rfx [place] ([facility]) nitrite, urine auto rfx negative negative Nitrite, Uri ne Auto Rfx [place] ([facility]) bilirubin, urine auto rfx negative negative Bilirubin, Urine Auto Rfx [place] ([facility]) leukocyte esterase ur auto rfx 2+ negative Above high normal Leukocyte Esterase Ur Auto Rfx [place] ([facility]) RBC, urine auto rfx 7 /hpf 0-3 Above high normal RBC, Urin e Auto Rfx [place] ([facility]) WBC, urine auto rfx 16 /hpf 0-3 Above high normal WBC, Urin e Auto Rfx [place] ([facility]) blood, urine blood rfx 2+ negative Above high normal Blood, Urine Blood Rfx [place] ([facility]) bacteria, urine auto rfx 1+ negative Above high normal Bact eria, Urine Auto Rfx [place] ([facility]) squam epithelial cell ur aurfx 1 /hpf 0-6 Squam Epithelial Cell Ur Aurfx [place] ([facility]) hyaline cast, urine auto rfx 0 /lpf 0-1 Hyaline Cast, Urine Auto Rfx [place] ([facility]) mucus, urine rfx small negative Mucus, Urine Rfx AT [facility] ([facility]) ID Date Data Source [id number] 12/10/2020 01:34:00 PM EST [place] ([facility]) Name Value Range Interpretation Code Description Data Claribel rce(s) Supporting Document(s) ID Date Data Source [id number] 12/10/2020 01:34:00 PM EST [facility] ([facility]) Name Value Range Interpretation Code Description Data Claribel rce(s) Supporting Document(s) appearance, urine rfx hazy clear Appearance, Ur ine Rfx [place] ([facility]) color, urine rfx yellow yellow Color, Urine Rfx AT [facility] ([facility]) specific gravity ur auto rfx 1.002-1.035 Specif ic [place] Ur Auto Rfx [place] ([facility]) pH,urine rfx 5.0 units 5.0-9.0 pH,urine Rfx [place] ([facility]) protein, urine auto rfx 3+ negative Above high normal Prote in, Urine Auto Rfx [place] ([facility]) glucose, urine (UA) auto rfx 3+ negative Above high n ormal Glucose, Urine (UA) Auto Rfx [place] ([facility]) urobilinogen, urine auto rfx 0.2 mg/dL 0.0-2.0 Urobili nogen, Urine Auto Rfx [place] ([facility]) ketone, urine auto rfx 2+ negative Above high normal Ketone , Urine Auto Rfx [place] ([facility]) leukocyte esterase ur auto rfx 2+ negative Above high normal Leukocyte Esterase Ur Auto Rfx [place] ([facility]) bilirubin, urine auto rfx negative negative Bilirubin, Urine Auto Rfx [place] ([facility]) nitrite, urine auto rfx negative negative Nitrite, Uri ne Auto Rfx [place] ([facility]) WBC, urine auto rfx 16 /hpf 0-3 Above high normal WBC, Urin e Auto Rfx [place] ([facility]) blood, urine blood rfx 2+ negative Above high normal Blood, Urine Blood Rfx [place] ([facility]) bacteria, urine auto rfx 1+ negative Above high normal Bact eria, Urine Auto Rfx [place] ([facility]) RBC, urine auto rfx 7 /hpf 0-3 Above high normal RBC, Urin e Auto Rfx [place] ([facility]) squam epithelial cell ur aurfx 1 /hpf 0-6 Squam Epithelial Cell Ur Aurfx [place] ([facility]) mucus, urine rfx small negative Mucus, Urine Rfx AT [facility] ([facility]) hyaline cast, urine auto rfx 0 /lpf 0-1 Hyaline Cast, Urine Auto Rfx [place] ([facility]) ID Date Data Source [id number] 12/10/2020 01:34:00 PM EST [place] ([facility]) Name Value Range Interpretation Code Description Data Claribel rce(s) Supporting Document(s) ID Date Data Source [id number] 12/10/2020 01:34:00 PM EST [place] ([facility]) Name Value Range Interpretation Code Description Data Claribel rce(s) Supporting Document(s) appearance, urine rfx hazy clear Appearance, Ur ine Rfx [place] ([facility]) color, urine rfx yellow yellow Color, Urine Rfx AT [facility] ([facility]) protein, urine auto rfx 3+ negative Above high normal Prote in, Urine Auto Rfx [place] ([facility]) specific gravity ur auto rfx 1.002-1.035 Specif ic [place] Ur Auto Rfx [place] ([facility]) pH,urine rfx 5.0 units 5.0-9.0 pH,urine Rfx [place] ([facility]) glucose, urine (UA) auto rfx 3+ negative Above high n ormal Glucose, Urine (UA) Auto Rfx [place] ([facility]) ketone, urine auto rfx 2+ negative Above high normal Ketone , Urine Auto Rfx [place] ([facility]) nitrite, urine auto rfx negative negative Nitrite, Uri ne Auto Rfx [place] ([facility]) urobilinogen, urine auto rfx 0.2 mg/dL 0.0-2.0 Urobili nogen, Urine Auto Rfx [place] ([facility]) bilirubin, urine auto rfx negative negative Bilirubin, Urine Auto Rfx [place] ([facility]) leukocyte esterase ur auto rfx 2+ negative Above high normal Leukocyte Esterase Ur Auto Rfx [place] ([facility]) blood, urine blood rfx 2+ negative Above high normal Blood, Urine Blood Rfx [place] ([facility]) WBC, urine auto rfx 16 /hpf 0-3 Above high normal WBC, Urin e Auto Rfx [place] ([facility]) RBC, urine auto rfx 7 /hpf 0-3 Above high normal RBC, Urin e Auto Rfx [place] ([facility]) bacteria, urine auto rfx 1+ negative Above high normal Bact eria, Urine Auto Rfx [place] ([facility]) hyaline cast, urine auto rfx 0 /lpf 0-1 Hyaline Cast, Urine Auto Rfx [place] ([facility]) mucus, urine rfx small negative Mucus, Urine Rfx AT [facility] ([facility]) squam epithelial cell ur aurfx 1 /hpf 0-6 Squam Epithelial Cell Ur Aurfx [place] ([facility]) ID Date Data Source [id number] 12/10/2020 01:04:00 PM EST [place] ([facility]) Name Value Range Interpretation Code Description Data Claribel rce(s) Supporting Document(s) bedside glucose 256 mg/dL 70-105 Above high normal Bedside Gluco se [place] ([facility]) ID Date Data Source [id number] 12/10/2020 01:04:00 PM EST [place] ([facility]) Name Value Range Interpretation Code Description Data Claribel rce(s) Supporting Document(s) bedside glucose 256 mg/dL 70-105 Above high normal Bedside Gluco se [place] ([facility]) ID Date Data Source [id number] 12/10/2020 01:04:00 PM EST [place] ([facility]) Name Value Range Interpretation Code Description Data Claribel rce(s) Supporting Document(s) bedside glucose 256 mg/dL 70-105 Above high normal Bedside Gluco se [place] ([facility]) ID Date Data Source [id number] 12/10/2020 01:04:00 PM EST [place] ([facility]) Name Value Range Interpretation Code Description Data Claribel rce(s) Supporting Document(s) bedside glucose 256 mg/dL 70-105 Above high normal Bedside Gluco se [place] ([facility]) ID Date Data Source [id number] 12/10/2020 01:04:00 PM EST [place] ([facility]) Name Value Range Interpretation Code Description Data Claribel rce(s) Supporting Document(s) bedside glucose 256 mg/dL 70-105 Above high normal Bedside Gluco se [place] ([facility]) ID Date Data Source [id number] 10/01/2020 12:00:00 AM EST [place] Name Value Range Interpretation Code Description Data Claribel rce(s) Supporting Document(s) SARS coronavirus 2 RNA [Presence] in Res piratory specimen by ANDREE with probe detection [facility] This lab was ordered by Nell [facility]ates and reported by [employer]. ID Date Data Source [id number] 08/19/2020 10:29:50 AM [facility] Name Value Range Interpretation Code Description Data Claribel rce(s) Supporting Document(s) Progress Note [facility] [id number] [file] [id number] [file] [id number] Procedure Social History Code Duration Value Status Description Data Source(s ) Smoking 03/26/2021 12:00:00 AM EDT Patient has never smoked co mpleted Patient has never smoked [facility] ([facility], [facility]) Alcohol intake 02/20/2021 12:00:00 AM EDT Current non-d clyde of alcohol (finding) completed Current non-drinker of alcohol (finding) [facility] Tobacco use and exposure 02/20/2021 12:00:00 AM EDT Never used co mpleted Never used [facility] Smoking 02/20/2021 12:00:00 AM EDT Never smoker completed Never s [facility] Vital Signs ID Date Data Source [id number] Name Value Range Interpretation Code Description Data Source(s) Diastolic blood pressure 73 mm[Hg] 73 mm[Hg] [place] ([facility]) Body height 64 [in_i] 64 [in_i] [place] ([facility]) Body mass index (BMI) [Ratio] 26 kg/m2 26 kg/ m2 [facility] ([facility]) Systolic blood pressure 105 mm[Hg] 105 mm[Hg] A [place] ([facility]) Body weight 2420 [oz_av] 2420 [oz_av] [facility] ([facility]) Body height 64 [in_i] 64 [in_i] [place] ([facility]) Body height 64 [in_i] 64 [in_i] [place] ([facility]) Diastolic blood pressure 81 mm[Hg] 81 mm[Hg] [place] ([facility]) Body height 64 [in_i] 64 [in_i] [place] ([facility]) Body mass index (BMI) [Ratio] 25.2 kg/m2 25.2 k g/m2 [place] ([facility]) Systolic blood pressure 112 mm[Hg] 112 mm[Hg] A [facility] ([facility]) Body weight 2352 [oz_av] 2352 [oz_av] [facility] ([facility]) Diastolic blood pressure 81 mm[Hg] 81 mm[Hg] [facility] ([facility]) Body height 64 [in_i] 64 [in_i] [place] ([facility]) Body mass index (BMI) [Ratio] 25.2 kg/m2 25.2 k g/m2 [facility] ([facility]) Systolic blood pressure 112 mm[Hg] 112 mm[Hg] A [place] ([facility]) Body weight 2352 [oz_av] 2352 [oz_av] [facility] ([facility]) Diastolic blood pressure 81 mm[Hg] 81 mm[Hg] [place] ([facility]) Body height 64 [in_i] 64 [in_i] [place] ([facility]) Body mass index (BMI) [Ratio] 25.2 kg/m2 25.2 k g/m2 [facility] ([facility]) Systolic blood pressure 112 mm[Hg] 112 mm[Hg] A [place] ([facility]) Body weight 2352 [oz_av] 2352 [oz_av] [facility] ([facility]) Systolic blood pressure 138 mm[Hg] 138 mm[Hg] M [facility] ([facility], [facility]) Respiratory rate 18 /min 18 /min [facility] ( [facility] Body temperature 98.2 [degF] 98.2 [degF] [facility] ([facility], [facility]) Diastolic blood pressure 91 mm[Hg] 91 mm[Hg] [facility] ([facility], [facility]) Body weight 146.00 [lb_av] 146.00 [lb_av] MEDEN T ([facility], [facility]) Heart rate 103 /min 103 /min [facility] ([facility], [facility]) Body height 64 [in_i] 64 [in_i] [facility] ([facility], [facility]) 5'4" Body mass index (BMI) [Ratio] 25.1 kg/m2 25.1 k g/m2 [facility] ([facility], [facility]) Oxygen saturation in Arterial blood by Pulse oximetry 97 % 97 % [facility]) Diastolic blood pressure 92 mm[Hg] 92 mm[Hg] [place] ([facility]) Body height 64 [in_i] 64 [in_i] [place] ([facility]) Body mass index (BMI) [Ratio] 26.1 kg/m2 26.1 k g/m2 [facility] ([facility]) Systolic blood pressure 134 mm[Hg] 134 mm[Hg] A [facility] ([facility]) Body weight 2432 [oz_av] 2432 [oz_av] [facility] ([facility]) Diastolic blood pressure 92 mm[Hg] 92 mm[Hg] [facility] ([facility]) Body height 64 [in_i] 64 [in_i] [place] ([facility]) Body mass index (BMI) [Ratio] 26.1 kg/m2 26.1 k g/m2 [facility] ([facility]) Systolic blood pressure 134 mm[Hg] 134 mm[Hg] A [facility] ([facility]) Body weight 2432 [oz_av] 2432 [oz_av] [facility] ([facility]) Diastolic blood pressure 92 mm[Hg] 92 mm[Hg] [place] ([facility]) Body height 64 [in_i] 64 [in_i] [place] ([facility]) Body mass index (BMI) [Ratio] 26.1 kg/m2 26.1 k g/m2 [facility] ([facility]) Systolic blood pressure 134 mm[Hg] 134 mm[Hg] A [facility] ([facility]) Body weight 2432 [oz_av] 2432 [oz_av] [facility] ([facility]) Diastolic blood pressure 92 mm[Hg] 92 mm[Hg] [facility] ([facility]) Body height 64 [in_i] 64 [in_i] [place] ([facility]) Body mass index (BMI) [Ratio] 26.1 kg/m2 26.1 k g/m2 [facility] ([facility]) Systolic blood pressure 134 mm[Hg] 134 mm[Hg] A [facility] ([facility]) Body weight 2432 [oz_av] 2432 [oz_av] [facility] ([facility]) Diastolic blood pressure 92 mm[Hg] 92 mm[Hg] [facility] ([facility]) Body height 64 [in_i] 64 [in_i] [place] ([facility]) Body mass index (BMI) [Ratio] 26.1 kg/m2 26.1 k g/m2 [facility] ([facility]) Systolic blood pressure 134 mm[Hg] 134 mm[Hg] A [facility] ([facility]) Body weight 2432 [oz_av] 2432 [oz_av] [facility] ([facility]) Diastolic blood pressure 92 mm[Hg] 92 mm[Hg] [facility] ([facility]) Body height 64 [in_i] 64 [in_i] [place] ([facility]) Body mass index (BMI) [Ratio] 26.1 kg/m2 26.1 k g/m2 [facility] ([facility]) Systolic blood pressure 134 mm[Hg] 134 mm[Hg] A [place] ([facility]) Body weight 2432 [oz_av] 2432 [oz_av] [facility] ([facility]) Diastolic blood pressure 66 mm[Hg] 66 mm[Hg] [place] ([facility]) Body height 64 [in_i] 64 [in_i] [place] ([facility]) Body mass index (BMI) [Ratio] 25.2 kg/m2 25.2 k g/m2 [facility] ([facility]) Systolic blood pressure 105 mm[Hg] 105 mm[Hg] A [place] ([facility]) Body weight 2352 [oz_av] 2352 [oz_av] [facility] ([facility]) Diastolic blood pressure 66 mm[Hg] 66 mm[Hg] [facility] ([facility]) Body height 64 [in_i] 64 [in_i] [place] ([facility]) Body mass index (BMI) [Ratio] 25.2 kg/m2 25.2 k g/m2 [facility] ([facility]) Systolic blood pressure 105 mm[Hg] 105 mm[Hg] A [facility] ([facility]) Body weight 2352 [oz_av] 2352 [oz_av] [facility] ([facility]) Diastolic blood pressure 66 mm[Hg] 66 mm[Hg] [facility] ([facility]) Body height 64 [in_i] 64 [in_i] [facility] ([facility]) Body mass index (BMI) [Ratio] 25.2 kg/m2 25.2 k g/m2 [facility] ([facility]) Systolic blood pressure 105 mm[Hg] 105 mm[Hg] A [facility] ([facility]) Body weight 2352 [oz_av] 2352 [oz_av] [facility] ([facility]) Diastolic blood pressure 66 mm[Hg] 66 mm[Hg] [facility] ([facility]) Body height 64 [in_i] 64 [in_i] [facility] ([facility]) Body mass index (BMI) [Ratio] 25.2 kg/m2 25.2 k g/m2 [facility] ([facility]) Systolic blood pressure 105 mm[Hg] 105 mm[Hg] A [place] ([facility]) Body weight 2352 [oz_av] 2352 [oz_av] [facility] ([facility]) Diastolic blood pressure 66 mm[Hg] 66 mm[Hg] [facility] ([facility]) Body height 64 [in_i] 64 [in_i] [facility] ([facility]) Body mass index (BMI) [Ratio] 25.2 kg/m2 25.2 k g/m2 [facility] ([facility]) Systolic blood pressure 105 mm[Hg] 105 mm[Hg] A [place] ([facility]) Body weight 2352 [oz_av] 2352 [oz_av] [facility] ([facility]) Diastolic blood pressure 66 mm[Hg] 66 mm[Hg] [facility] ([facility]) Body height 64 [in_i] 64 [in_i] [place] ([facility]) Body mass index (BMI) [Ratio] 25.2 kg/m2 25.2 k g/m2 [facility] ([facility]) Systolic blood pressure 105 mm[Hg] 105 mm[Hg] A [place] ([facility]) Body weight 2352 [oz_av] 2352 [oz_av] [facility] ([facility]) Body weight 2352 [oz_av] 2352 [oz_av] [facility] ([facility]) Diastolic blood pressure 66 mm[Hg] 66 mm[Hg] [facility] ([facility]) Body height 64 [in_i] 64 [in_i] [facility] ([facility]) Body mass index (BMI) [Ratio] 25.2 kg/m2 25.2 k g/m2 [facility] ([facility]) Systolic blood pressure 105 mm[Hg] 105 mm[Hg] A [facility] ([facility]) ID Date Data Source [id number] 08/19/2020 10:38:24 AM [facility] Name Value Range Interpretation Code Description Data Source(s) WEIGHT RECORDED 155 lb 155 lb [facility] Body height Measured 64.5 in 64.5 in [facility] Patient Treatment Plan of Care Planned Activity Planned Date Details Description Data Source (s) OneTouch Ultra In Vitro Strip 05/28/2021 12:00:00 AM [facility] Tresiba FlexTouch 100 UNIT/ML Subcutaneo us Solution Pen-injector (insulin degludec) 05/28/2021 12:00:00 AM [facility] Baqsimi One Pack 3 MG/DOSE Nasal Powder (Glucagon) 05/28/2021 12 :00:00 AM [facility] Insulin Pen Needle 31G X 6 MM 02/20/2021 12:00:00 AM [facility] Insulin, Aspart, Human 100 UNT/ML Injectable Solution 02/05/2021 12:00:00 AM [facility] ospital OneTouch Ultra In Vitro Strip 11/03/2020 12:00:00 AM [facility] Insulin Syringe 31G X 5/16" 1 ML 09/19/2020 12:00:00 AM [facility] Adhesive Remover Wipes XL 07/02/2020 12:00:00 AM [facility] Dexcom G6 Drill Presser Device 07/02/2020 12:00:00 AM [facility] Dexcom G6 Sensor 07/02/2020 12:00:00 AM [facility] Dexcom G6 Transmitter 07/02/2020 12:00:00 AM [facility] Tegaderm Film 4"x4-3/4" 07/02/2020 12:00:00 AM [facility] Insulin Degludec 100 UNIT/ML Subcutaneou s Solution Pen-injector (Tresiba FlexTouch) 04/01/2020 12:00:00 AM [facility] Ergocalciferol 28404 UNT Oral Capsule 11/23/2019 12:00:00 AM [facility] Glucagon 3 MG/DOSE Nasal Powder (BAQSIMI ONE PACK) 10/29/2019 12 :00:00 AM [facility] Glucagon 1 MG Injection 10/11/2018 12:00:00 AM [facility] Unifine Pentips 31 gauge x 1/4" needle U SE DIRECTED WITH TRESIBA AND NOVOLOG PENS UP TO 6 TIMES DAILY [place] ([facility]) Prednisone 20 MG Oral Tablet [place] ([facility]) Phosphorous Supplement 280 mg-160 mg-250 mg oral powder packet MIX 1 PACKET AND DRINK THREE TIMES DAILY [place] ( [facility]) OneTouch Ultra Test strips USE INSTRUCTED 6 TIMES DAILY TO CH SUZANNA SUGARS [facility] ([facility]) OneTouch Ultra Blue Test Strip USE TO CHECK BLOOD GLUCOSE 6 TIMES D [facility] ([facility]) Insulin, Aspart, Human 100 UNT/ML Injectable Solution [NovoLog] [place] ([facility]) Lisinopril 5 MG Oral Tablet [facility] ([facility]) Lisinopril 10 MG Oral Tablet [facility] ([facility]) insulin syringe U-100 with needle 1 mL 31 gauge x 5/16" [facility] ([facility] Ibuprofen 600 MG Oral Tablet [facility] ([facility]) Ergocalciferol 68593 UNT Oral Capsule [facility] ([facility]) Dexamethasone 1 MG/ML Ophthalmic Solution [facility] ([facility]) Ciprofloxacin 3 MG/ML Ophthalmic Solution [facility] ([facility]) Cholecalciferol 2000 UNT Oral Tablet [facility] ([facility]) Cholecalciferol 57571 UNT Oral Capsule [facility] ([facility]) Baqsimi 3 mg/actuation nasal spray SPRAY 3MG IN ONE NOSTRIL TO TREAT SEVERE HYPOGLYCEMIA [facility] ([facility]) atorvastatin 40 MG Oral Tablet [facility] ([facility]) atorvastatin 20 MG Oral Tablet [facility] ([facility]) Cholecalciferol 5000 UNT Oral Capsule [facility] Prednisone 20 MG Oral Tablet [facility] ([facility]) Phosphorous Supplement 280 mg-160 mg-250 mg oral powder packet MIX 1 PACKET AND DRINK THREE TIMES DAILY [facility] ( [facility]) Insulin, Aspart, Human 100 UNT/ML Injectable Solution [NovoLog] [facility] ([facility]) Lisinopril 5 MG Oral Tablet [facility] ([facility]) Lisinopril 10 MG Oral Tablet [facility] ([facility]) Ibuprofen 600 MG Oral Tablet [facility] ([facility]) Ergocalciferol 40127 UNT Oral Capsule [facility] ([facility]) Dexamethasone 1 MG/ML Ophthalmic Solution [facility] ([facility]) Ciprofloxacin 3 MG/ML Ophthalmic Solution [facility] ([facility]) Cholecalciferol 2000 UNT Oral Tablet [facility] ([facility]) Cholecalciferol 00705 UNT Oral Capsule [facility] ([facility]) Baqsimi 3 mg/actuation nasal spray SPRAY 3MG IN ONE NOSTRIL TO TREAT SEVERE HYPOGLYCEMIA [facility] ([facility]) atorvastatin 40 MG Oral Tablet [facility] ([facility]) atorvastatin 20 MG Oral Tablet [facility] ([facility]) Prednisone 20 MG Oral Tablet [facility] ([facility]) Phosphorous Supplement 280 mg-160 mg-250 mg oral powder packet MIX 1 PACKET AND DRINK THREE TIMES DAILY [facility] ( [facility]) Insulin, Aspart, Human 100 UNT/ML Injectable Solution [NovoLog] [facility] ([facility]) Lisinopril 5 MG Oral Tablet [facility] ([facility]) Lisinopril 10 MG Oral Tablet [facility] ([facility]) Ibuprofen 600 MG Oral Tablet [facility] ([facility]) Ergocalciferol 67177 UNT Oral Capsule [facility] ([facility]) Dexamethasone 1 MG/ML Ophthalmic Solution [facility] ([facility]) Ciprofloxacin 3 MG/ML Ophthalmic Solution [facility] ([facility]) Cholecalciferol 2000 UNT Oral Tablet [facility] ([facility]) Cholecalciferol 28631 UNT Oral Capsule [facility] ([facility]) Baqsimi 3 mg/actuation nasal spray SPRAY 3MG IN ONE NOSTRIL TO TREAT SEVERE HYPOGLYCEMIA [facility] ([facility]) atorvastatin 40 MG Oral Tablet [facility] ([facility]) atorvastatin 20 MG Oral Tablet [facility] ([facility]) Prednisone 20 MG Oral Tablet [facility] ([facility]) Phosphorous Supplement 280 mg-160 mg-250 mg oral powder packet MIX 1 PACKET AND DRINK THREE TIMES DAILY [facility] ( [facility]) Lisinopril 5 MG Oral Tablet [facility] ([facility]) Ergocalciferol 17240 UNT Oral Capsule [facility] ([facility]) Cholecalciferol 2000 UNT Oral Tablet [facility] ([facility]) Baqsimi 3 mg/actuation nasal spray SPRAY 3MG IN ONE NOSTRIL TO TREAT SEVERE HYPOGLYCEMIA CYNDI ([facility]) atorvastatin 20 MG Oral Tablet CYNDI ([facility]) Lisinopril 5 MG Oral Tablet CYNDI ([facility]) Ergocalciferol 20279 UNT Oral Capsule CYNDI ([facility]) Cholecalciferol 2000 UNT Oral Tablet CYNDI ([facility]) Baqsimi 3 mg/actuation nasal spray SPRAY 3MG IN ONE NOSTRIL TO TREAT SEVERE HYPOGLYCEMIA CYNDI ([facility]) atorvastatin 20 MG Oral Tablet CYNDI ([facility]) Prednisone 20 MG Oral Tablet CYNDI ([facility]) Phosphorous Supplement 280 mg-160 mg-250 mg oral powder packet MIX 1 PACKET AND DRINK THREE TIMES DAILY CYNDI ( [facility]) Lisinopril 5 MG Oral Tablet CYNDI ([facility]) Ergocalciferol 28997 UNT Oral Capsule CYNDI ([facility]) Cholecalciferol 2000 UNT Oral Tablet CYNDI ([facility]) Baqsimi 3 mg/actuation nasal spray SPRAY 3MG IN ONE NOSTRIL TO TREAT SEVERE HYPOGLYCEMIA CYNDI ([facility]) atorvastatin 20 MG Oral Tablet CYNDI ([facility]) Prednisone 20 MG Oral Tablet CYNDI ([facility]) Phosphorous Supplement 280 mg-160 mg-250 mg oral powder packet MIX 1 PACKET AND DRINK THREE TIMES DAILY CYNDI ( [facility])
[2021-10-19] MEDS ORDERED: TRES1INJ2 SC (06:48)
[2021-10-19] MEDS ORDERED: HOME MED LIST COMPLETE! XX SCH (06:55)
[2021-10-19 07:37] LABS: RSV AMPLIFICATION NEGATIVE (NEGATIVE)
[2021-10-19 08:09] LABS: BASO % 0.3 % (0.0-1.0); EOS # 0.1 10^3/uL (0.0-0.5); EOS % 1.2 % (0.0-3.0); HEMATOCRIT 42.4 % (36.0-47.0); HEMOGLOBIN 13.5 g/dl (12.0-15.5); LYMPH # 0.6 10^3/uL (1.5-5.0); LYMPH % 8.9 % (24.0-44.0); MEAN CORPUSCULAR HEMOGLOBIN 28.7 pg (27.0-33.0); MEAN CORPUSCULAR HGB CONC 31.8 g/dl (32.0-36.5); MONO # 0.2 10^3/uL (0.0-0.8); MONO % 3.4 % (2.0-8.0); NEUTROPHILS # 5.9 10^3/uL (1.5-8.5); NEUTROPHILS % 85.9 % (36.0-66.0); PLATELET COUNT, AUTOMATED 184 10^3/uL (150-450); RED BLOOD COUNT 4.71 10^6/uL (4.00-5.40); WHITE BLOOD COUNT 6.8 10^3/uL (4.0-10.0)
[2021-10-19 09:03] LABS: HCG, SERUM QUALITATIVE NEGATIVE (NEGATIVE)
[2021-10-19 09:04] LABS: HEMOGLOBIN A1c 11.1 %
[2021-10-19 09:17] LABS: OSMOLALITY SERUM 308 MOSM/KG (275-295)
[2021-10-19 09:41] LABS: VENOUS PH 7.302 UNITS (7.330-7.430)
[2021-10-19 09:42] LABS: VENOUS BASE EXCESS -8.1 (-2.0-2.0); VENOUS HCO3 17.4 MEQ/L (23.0-27.0); VENOUS O2 SATURATION 99.1 % (60.0-80.0); VENOUS PARTIAL PRESSURE CO2 36.1 mmHg (38.0-50.0); VENOUS PARTIAL PRESSURE O2 194.7 mmHg (30.0-50.0); VENOUS TOTAL CO2 18.6 MEQ/L (24.0-28.0)
--- NOTE | 2021-10-19 10:10 | REP ---
INDICATION: DKA COMPARISON: 03/29/2021 TECHNIQUE: Portable AP view of the chest FINDINGS: Tracheostomy overlies the airway in satisfactory position. The mediastinum and cardiac silhouette are stable and within normal limits for portable technique. The lung pike are clear without acute consolidation, effusion, or pneumothorax. Skeletal structures are intact. IMPRESSION: No acute cardiopulmonary process appreciated. <Electronically signed by Sixto Trimble > 10/19/21 [id number]
[2021-10-19 10:22] LABS: ACETONE/KETONE 43.16 MG/DL (<2.81); ALBUMIN 2.7 GM/DL (3.2-5.2); ALT/SGPT 17 U/L (12-78); BILIRUBIN,DIRECT 0.1 MG/DL (0.0-0.2); BILIRUBIN,TOTAL 0.5 MG/DL (0.2-1.0); BLOOD UREA NITROGEN 19 MG/DL (7-18); C REACTIVE PROTEIN QUANTITATIV 8.38 MG/DL (0.00-0.30); CALCIUM LEVEL 9.1 MG/DL (8.5-10.1); CARBON DIOXIDE LEVEL 19 MEQ/L (21-32); CHLORIDE LEVEL 109 MEQ/L (98-107); CREATININE FOR GFR 0.83 MG/DL (0.55-1.30); GLOMERULAR FILTRATION RATE > 60.0 (>60); GLUCOSE, FASTING 365 MG/DL (70-100); LIPASE 42 U/L (73-393); MAGNESIUM LEVEL 2.2 MG/DL (1.8-2.4); POTASSIUM SERUM 4.8 MEQ/L (3.5-5.1); SODIUM LEVEL 137 MEQ/L (136-145); TOTAL PROTEIN 6.6 GM/DL (6.4-8.2)
[2021-10-19] MEDS ORDERED: ISOVUE-370 76% 100ML VIAL As Ordered ONE (10:32)
[2021-10-19] MEDS ORDERED: LEVEMIR (INSULIN DETEMIR) 1 UNITS/0.01ML SC ONE (12:50)
[2021-10-19] MEDS ORDERED: LIDOCAINE 1% MDV 20ML VIAL As Ordered ONE (16:17)
[2021-10-19] MEDS ORDERED: HumaLOG INSULIN (NovoLOG) PER UNIT SC SCH ×2 (17:30→21:00)
--- NOTE | 2021-10-19 18:04 | REPVR ---
PROCEDURE INFORMATION: Exam: CT Orbits With Contrast Exam date and time: 10/19/2021 10:25 AM Age: 35 years old Clinical indication: Mass, lump, or swelling; Other: Periorbital, bilat; Additional info: Periorbital swelling TECHNIQUE: Imaging protocol: Computed tomography images of the orbits with intravenous contrast. Radiation optimization: All CT scans at this facility use at least one of these dose optimization techniques: automated exposure control; mA and/or kV adjustment per patient size (includes targeted exams where dose is matched to clinical indication); or iterative reconstruction. Contrast material: ISOVUE 370; Contrast volume: 75 ml; Contrast route: INTRAVENOUS (IV); COMPARISON: CT Head without contrast 12/10/2020 8:00 PM FINDINGS: Orbital cavity: There is mild bilateral preseptal periorbital edema. Postseptal regions, globes extraocular muscles and optic nerves appear unremarkable bilaterally. Paranasal sinuses: Normal. No air-fluid levels. Auditory system: Retained cerumen in the left external auditory canal. Nasal cavity: Bilateral quinten bullosa. Bones/joints: No acute fracture. Soft tissues: No significant facial soft tissue swelling. IMPRESSION: There is mild bilateral preseptal periorbital edema. Electronically signed by: Bhavik Carrasco On 10/19/2021 18:04:25 PM
[2021-10-19] MEDS: SODIUM CHLORIDE 0.9% INJ 10 ML SYR IV SCH (18:40)
[2021-10-19] MEDS ORDERED: SODIUM CHLORIDE 0.9% INJ 10 ML SYR IV PRN ×2 (18:40)
[2021-10-19] MEDS ORDERED: GLUCAGON INJ 1MG VIAL SC PRN (18:40)
[2021-10-19] MEDS ORDERED: DEXTROSE 50% 50 ML SYRINGE IV PRN (18:40)
[2021-10-19] MEDS ORDERED: GLUCOSE 4GM CHEW TABLET PO PRN (18:40)
--- OUTSIDE RECORDS SUMMARY | 2021-10-19 19:14 | CCD ---
Author Author [facility] Organization [facility] Address Unknown Phone Unavailable Support Name Relationship Address Phone Rosibel Philippe Next Of Kin Unknown Unavailable MCDONCARNANCY Next Of Kin [address] [place] [address] [employer] Next Of Kin [address] [place] [address] Nikki Flowers Next Of Kin [address] [facility] [place] [address] ROSIBEL TONEY Next Of Kin [address] [place] [address] JAMES EVANS Next Of Kin [address] [facility] [address] [place] [address] SYL Next Of Kin [address] [place] [address] ROSIBEL ADLER Next Of Kin [address] [place] [address] MING LOPEZ Next Of Kin [address] [facility] [address] [place] [address] Unavailable MELODIE BURNETT Next Of Kin Unknown [employer] (MCDONAL Next Of Kin [address] [facility] [address] [place] [address] CYNDI MCKEON Next Of Kin [address] [place] [address] MCDONALDS Next Of Kin [address] [facility] [place] [address] NEISHA TERESA Next Of Kin [address] [place] [address] ST Next Of Kin Unknown Unavailable ABIMBOLA BURNETT Next Of Kin [address] [place] [address] AMIE Next Of Kin [address] [place] [address] ANGEL BURNETT Next Of Kin [address] [place] [address] [employer]IM[employer]IANOO, (HC PROXY) MELODIE Next Of Kin [address] [place] [address] Care Team Providers Care Central Office Technician Name Role Phone Chris Lentz MD Unavailable [...] Unavailable Chris Lentz MD Unavailable Unavailable Chris eLntz MD Unavailable Unavailable Chris Lentz MD Unavailable [...] Unavailable Maring, Bashir PA Unavailable Unavailable Jonah, Nkiki PHLEBOTOMY PROGRAM COORDINATOR PHLEBOTOMY PROGRAM COORDINATOR Unavailable Unavailable Nalla, Jackie Unavailable Nalla, Jackie Unavailable Nalla, Jackie Unavailable Jonah, A Nikki PHLEBOTOMY PROGRAM COORDINATOR Unavailable Unavailable Jonah, A Nikki PHLEBOTOMY PROGRAM COORDINATOR Unavailable Unavailable Jonah, A Nikki PHLEBOTOMY PROGRAM COORDINATOR Unavailable Unavailable Jonah, A Nikki PHLEBOTOMY PROGRAM COORDINATOR Unavailable Unavailable Jonah, A Nikki PHLEBOTOMY PROGRAM COORDINATOR Unavailable Unavailable Jonah, A Nikki PHLEBOTOMY PROGRAM COORDINATOR Unavailable Unavailable Jonah, A Nikki PHLEBOTOMY PROGRAM COORDINATOR Unavailable Unavailable Jonah, A Nikki PHLEBOTOMY PROGRAM COORDINATOR Unavailable Unavailable Caputa, A Nikki PHLEBOTOMY PROGRAM COORDINATOR Unavailable Unavailable Caputa, A Nikki PHLEBOTOMY PROGRAM COORDINATOR Unavailable Unavailable Caputa, A Nikki PHLEBOTOMY PROGRAM COORDINATOR Unavailable Unavailable Caputa, A Nikki PHLEBOTOMY PROGRAM COORDINATOR Unavailable Unavailable Caputa, A Nikki PHLEBOTOMY PROGRAM COORDINATOR Unavailable Unavailable Caputa, A Nikki PHLEBOTOMY PROGRAM COORDINATOR Unavailable Unavailable Caputa, A Nikki PHLEBOTOMY PROGRAM COORDINATOR Unavailable Unavailable Caputa, A Nikki PHLEBOTOMY PROGRAM COORDINATOR Unavailable Unavailable Caputa, A Nikki PHLEBOTOMY PROGRAM COORDINATOR Unavailable Unavailable Caputa, A Nikki PHLEBOTOMY PROGRAM COORDINATOR Unavailable Unavailable Caputa, A Nikki PHLEBOTOMY PROGRAM COORDINATOR Unavailable Unavailable Caputa, A Nikki PHLEBOTOMY PROGRAM COORDINATOR Unavailable Unavailable Caputa, A Nikki PHLEBOTOMY PROGRAM COORDINATOR Unavailable Unavailable Caputa, A Nikki PHLEBOTOMY PROGRAM COORDINATOR Unavailable Unavailable Caputa, A Nikki PHLEBOTOMY PROGRAM COORDINATOR Unavailable Unavailable Caputa, A Nikki PHLEBOTOMY PROGRAM COORDINATOR Unavailable Unavailable Caputa, A Nikki PHLEBOTOMY PROGRAM COORDINATOR Unavailable Unavailable Caputa, A Nikki PHLEBOTOMY PROGRAM COORDINATOR Unavailable Unavailable Caputa, A Nikki PHLEBOTOMY PROGRAM COORDINATOR Unavailable Unavailable Caputa, A Nikki PHLEBOTOMY PROGRAM COORDINATOR Unavailable Unavailable Caputa, A Nikki PHLEBOTOMY PROGRAM COORDINATOR Unavailable Unavailable Caputa, A Nikki PHLEBOTOMY PROGRAM COORDINATOR Unavailable Unavailable Caputa, A Nikki PHLEBOTOMY PROGRAM COORDINATOR Unavailable Unavailable NALLA, JACKIE Unavailable Unavailable ANNIE, [...] is protected by Article 27-F of the [facility] Public Health law. If you continue you may have access to information: Regarding HIV / AIDS; Provided by facilities licensed or operated by the [facility] Office of Mental Health; or Provided by the [facility] Office for People With Developmental Disabilities. If such information is present, then the following [facility] mandated warning applies: This information has been [...] Unknown Problem MEDENT ([facility], [facility]) Encounters Encounter Providers Location Date Indications Data Source(s ) Outpatient Attender: Jackie Angel: JACKIE SANDERS 2021 12:00:00 AM [facility] Outpatient Attender: JACKIE Angel: Jackie Sanders 09/15/2021 12:00:00 AM EDT [facility] Cesar Lentz MD: [address] [place] [address], Ph. Attender: Cesar Lentz MD [facility] Medical 07/02/2021 12:00:00 AM EDT [facility] ([facility]) Outpatient Attender: GABRIELLA GAMA [id number] 05/28/2021 1 2:00:00 AM EDT Type 1 diabetes mellitus with hypoglycemia without coma [facility] Type 1 diabetes mellitus with hypoglycem ia without coma JACKELYN Galvez: [address] [place] [address], Ph. Attender: Nikki Mckeznie [facility] Medical 05/07/2021 12:00:00 AM EDT CYNDI ([facility]) JACKELYN Galvez: [address] [place] [address], Ph. Attender: Nikki Mckenzie [facility] Medical 05/07/2021 12:00:00 AM EDT CY[facility] ([facility]) Cesar Lentz MD: [address] [place] [address], Ph. Attender: Cesar Lentz MD [facility] Medical 04/22/2021 12:00:00 AM EDT CYND[facility] ([facility]) Cesar Lentz MD: [address] [place] [address], Ph. Attender: Cesar Lentz MD [facility] Medical 04/22/2021 12:00:00 AM EDT CY[facility] ([facility]) Cesar Lentz MD: [address] [place] [address], Ph. Attender: Cesar Lentz MD [facility] Medical 04/22/2021 12:00:00 AM EDT CYND[facility] ([facility]) Outpatient Attender: KIM Liu [facility] 03/26/2021 05:15:00 PM EDT MEDENT ([facility]) Cesar Lentz MD: [address] [place] [address], Ph. Attender: Cesar Lentz MD [facility] Medical 03/10/2021 12:00:00 AM EDT CYNDI ([facility]) Cesar Lentz MD: [address] [place] [address], Ph. Attender: Cesar Lentz MD [facility] Medical 03/10/2021 12:00:00 AM EDT CYNDI ([facility]) Cesar Lentz MD: [address] [place] [address], Ph. Attender: Cesar Lentz MD [facility] Medical 03/10/2021 12:00:00 AM EDT CY[facility] ([facility]) Cesar Lentz MD: [address] [place] [address], Ph. Attender: Cesar Lentz MD [facility] Medical 03/10/2021 12:00:00 AM EDT CYND[facility] ([facility]) Outpatient Attender: GABRIELLA GAMA [id number] 02/20/2021 1 2:00:00 AM EDT Type 1 diabetes mellitus with hyperglycemia [facility] Type 1 diabetes mellitus with hyperglyce oneil Cesar Lentz MD: [address] [place] [address], Ph. Attender: Cesar Lentz MD [facility] Medical 02/10/2021 12:00:00 AM EDT CYND[facility] ([facility]) Cesar Lentz MD: [address] [place] [address], Ph. Attender: Cesar Lentz MD [facility] Medical 02/10/2021 12:00:00 AM EDT CYND[facility] ([facility]) Cesar Lentz MD: [address] [place] [address], Ph. Attender: Cesar Lentz MD [facility] Medical 02/10/2021 12:00:00 AM EDT CYND[facility] ([facility]) Cesar Lentz MD: [address] [place] [address], Ph. Attender: Cesar Lentz MD [facility] Medical 02/10/2021 12:00:00 AM EDT CYNDI ([facility]) Cesar Lentz MD: [address] [place] [address], Ph. Attender: Cesar Lentz MD [facility] Medical 02/10/2021 12:00:00 AM EDT CYNDI ([facility]) Cesar Lentz MD: [address] [place] [address], Ph. Attender: Cesar Lentz MD [facility] Medical 12/25/2020 12:00:00 AM EST [facility] ([facility]) Cesar Lentz MD: [address] [place] [address], Ph. Attender: Cesar Lentz MD [facility] Medical 12/25/2020 12:00:00 AM EST [facility] ([facility]) Cesar Lentz MD: [address] [place] [address], Ph. Attender: Cesar Lentz MD [facility] Medical 12/25/2020 12:00:00 AM EST [facility] ([facility]) Cesar Lentz MD: [address] [place] [address], Ph. Attender: Cesar Lentz MD [facility] Medical 12/25/2020 12:00:00 AM EST [facility] ([facility]) Cesar Lentz MD: [address] [place] [address], Ph. Attender: Cesar Lentz MD [facility] Medical 12/25/2020 12:00:00 AM EST [facility] ([facility]) Cesar Lentz MD: [address] [place] [address], Ph. Attender: Cesar Lentz MD [facility] Medical 12/25/2020 12:00:00 AM EST [facility] ([facility]) Outpatient Attender: Bashir GAMA 12/24/19 10:49:12 AM [facility] 12/24/2020 11:00:40 AM EST [facility] ([facility] ) Outpatient Attender: JACKIE SANDERS 11/19/2020 12:00:00 AM [facility] Cesar Lentz MD: [address] [place] [address], Ph. Attender: Cesar Lentz MD [facility] Medical 09/25/2020 12:00:00 AM EST [facility]ND[facility] ([facility]) Cesar Lentz MD: [address] [place] [address], Ph. Attender: Cesar Lentz MD [facility] Medical 09/25/2020 12:00:00 AM EST [facility] ([facility]) Cesar Lentz MD: [address] [place] [address], Ph. Attender: Cesar Lentz MD [facility] Medical 09/25/2020 12:00:00 AM EST [facility] ([facility]) Cesar Lentz MD: [address] [place] [address], Ph. Attender: Cesar Lentz MD [facility] Medical 09/25/2020 12:00:00 AM EST [facility] ([facility]) Cesar Lentz MD: [address] [place] [address], Ph. Attender: Cesar Lentz MD [facility] Medical 09/25/2020 12:00:00 AM EST [facility] ([facility]) Cesar Lentz MD: [address] [place] [address], Ph. Attender: Cesar Lentz MD [facility] Medical 09/25/2020 12:00:00 AM EST [facility] ([facility]) Cesar Lentz MD: [address] [place] [address], Ph. Attender: Cesar Lentz MD [facility] Medical 09/25/2020 12:00:00 AM EST [facility] ([facility]) Outpatient Attender: MICHAEL JACQUES 09/02/2020 05:15:00 P M EDT [facility] Immunizations Vaccine Date Status Description Data Source(s) COVID-19, mRNA, LNP-S, PF, 100 mcg/0.5 mL dose 03/10/2021 10 :46:37 AM EDT completed .5 mL [facility] ([facility]) COVID-19, mRNA, LNP-S, PF, 100 mcg/0.5 mL dose 03/10/2021 10 :46:37 AM EDT completed .5 mL [facility] ([facility]) COVID-19, mRNA, LNP-S, PF, 100 mcg/0.5 mL dose 03/10/2021 10 :46:37 AM EDT completed .5 mL [facility] ([facility]) COVID-19, mRNA, LNP-S, PF, 100 mcg/0.5 mL dose 03/10/2021 10 :46:37 AM EDT completed .5 mL [facility] ([facility]) COVID-19 VACCINE Moderna 03/10/2021 12:00:00 AM EDT completed [facility] Vaccine Series Complete: YESThis Data wa s Submitted to [facility] Via [employer]. COVID-19, mRNA, LNP-S, PF, 100 mcg/0.5 mL dose 02/10/2021 09 :12:40 PM EDT completed .5 mL [facility] ([facility]) COVID-19, mRNA, LNP-S, PF, 100 mcg/0.5 mL dose 02/10/2021 09 :12:40 PM EDT completed .5 mL [facility] ([facility]) COVID-19, mRNA, LNP-S, PF, 100 mcg/0.5 mL dose 02/10/2021 09 :12:40 PM EDT completed .5 mL [facility] ([facility]) COVID-19, mRNA, LNP-S, PF, 100 mcg/0.5 mL dose 02/10/2021 09 :12:40 PM EDT completed .5 mL [facility] ([facility]) COVID-19, mRNA, LNP-S, PF, 100 mcg/0.5 mL dose 02/10/2021 09 :12:40 PM EDT completed .5 mL CYNDI ([facility]) COVID-19 VACCINE Moderna 02/10/2021 12:00:00 AM EDT completed [facility] Vaccine Series Complete: NOThis Data was Submitted to [facility] Via G[employer]. New in 2011. IIV4 09/25/2020 02:34:00 PM EST completed .5 mL [facility]NDI ([facility]) New in 2011. IIV4 09/25/2020 02:34:00 PM EST completed .5 mL [facility]ND[facility] ([facility]) New in 2011. IIV4 09/25/2020 02:34:00 PM EST completed .5 mL [facility]I ([facility]) New in 2011. IIV4 09/25/2020 02:34:00 PM EST completed .5 mL [facility]NDI ([facility]) New in 2011. IIV4 09/25/2020 02:34:00 PM EST completed .5 mL [facility]NDI ([facility]) New in 2011. IIV4 09/25/2020 02:34:00 PM EST completed .5 mL [facility]NDI ([facility]) New in 2011. IIV4 09/25/2020 02:34:00 PM EST completed .5 mL [facility]NDI ([facility]) Medications Medication Brand Name Start Date Product Form Dose Route Admi nistrative Instructions Pharmacy Instructions Status Indications Reaction Description Data Source(s) Baqsimi One Pack 3 MG/DOSE Nasal Powder (Glucagon) 7060-3195 -11 05/28/2021 12:00:00 AM EDT active [place] 3mg in one nostril to treat severe hypoglycemia. Dx E10.65 . [facility] FlexTouch 100 UNIT/ML Subcutaneo us Solution Pen-injector (insulin degludec) 1228-9857-45 05/28/2021 12:00:00 AM EDT active Type 1 diabetes mellitus with hyperglycemia Inject 21 units i n the morning and 20 units in the evening as directed. MDD 63 units with priming and titration [facility] Type 1 diabetes mellitus with hyperglyce oneil OneTouch Ultra In Vitro Strip 84706-396-24 05/28/2021 12:00:00 AM EDT active Type 1 diabetes mellitus with hyperglycemia Use as instructed 6 times daily to check sugars. Dx: E10.65 [facility] Type 1 diabetes mellitus with hyperglyce oneil Insulin Pen Needle 31G X 6 MM [address]600 02/20/2021 12:00:00 AM EDT active Use as directed. With Tresiba and Novolo g pens up to 6 times daily. E 10.65 [facility] Insulin, Aspart, Human 100 UNT/ML Inject able Solution Insulin Aspart 100 UNIT/ML Subcutaneous Solution (NOVOLOG) Insulin Aspart 100 UNIT/ML Subcutaneous Solution (NOVOLOG) 02/05/2021 12:00:00 AM EDT act [facility] Type 1 diabetes mellitus with hyperglycemia Inject as per sliding scale. MDD- 95 units with titration. Dx: E10.65 [facility] Type 1 diabetes mellitus with hyperglyce oneil OneTouch Ultra In Vitro Strip 48398-505-72 11/03/2020 12:00:00 AM EST aborted Type 1 diabetes mellitus with hyperglycemia USE TO CHECK BLOOD GLUCOSE 6 TIMES DAILY [facility] Type 1 diabetes mellitus with hyperglyce oneil Insulin Syringe 31G X 5/16" 1 ML [address] 09/19/2020 12:00:00 AM EST active Type 1 diabetes mellitus with hyperglycemia Use as directed. USE DIRECTED WITH INSULIN INJECTIONS UP TO 6 TIMES DAILY [facility] Type 1 diabetes mellitus with hyperglyce oneil Dexcom G6 Sensor [id number] 07/02/2020 12:00:00 AM EDT 1 {each} Does not apply aborted Type 1 diabetes mellitus with hyperg lycemia 1 each by Does not apply route every 7 (seven) days [facility] Type 1 diabetes mellitus with hyperglyce oneil Dexcom G6 Cloth Beamer Device [id number] 07/02/2020 12:00:00 AM EDT aborted Type 1 diabetes mellitus with hyperglycemia GABRIELA Y DIRECTED [facility] Type 1 diabetes mellitus with hyperglyce oneil Tegaderm Film 4"x4-3/4" 5093-1373-38 07/02/2020 12:00:00 AM EDT aborted Type 1 diabetes mellitus with hyperglycemia GABRIELA Y DIRECTED [facility] Type 1 diabetes mellitus with hyperglyce oneil Dexcom G6 Transmitter [id number] 07/02/2020 12:00:00 AM EDT aborted Type 1 diabetes mellitus with hyperglycemia DAILY DIRECTE D [facility] Type 1 diabetes mellitus with hyperglyce oneil Adhesive Remover Wipes XL [id number] 07/02/2020 12:00:00 AM EDT 1 {each} Topical aborted Type 1 diabetes mellitus with hyperg lycemia Apply 1 each topically once a week [facility] Type 1 diabetes mellitus with hyperglyce oneil Insulin Degludec 100 UNIT/ML Subcutaneou s Solution Pen-injector (Tresiba FlexTouch) [id number] 04/01/2020 12:00:00 AM EDT aborted Type 1 diabetes mellitus with hyperglycemia Inject 17 units in the mor doreen and 17 units in the evening as directed. MDD 58 units with priming and titration [facility] Type 1 diabetes mellitus with hyperglyce oneil Ergocalciferol 30260 UNT Oral Capsule Er gocalciferol 1.25 MG (37596 UT) Oral Capsule (ERGOCALCIFEROL) Ergocalciferol 1.25 MG (00031 UT) Oral C apsule (ERGOCALCIFEROL) 11/23/2019 12:00:00 AM EST 91772 U Oral active Take 1 capsule by mouth once a week For 8 weeks only. [facility] Glucagon 3 MG/DOSE Nasal Powder (BAQSIMI ONE PACK) [id number] 10/29/2019 12:00:00 AM EST aborted [place] 3m g in one nostril to treat severe hypoglycemia. Dx E10.65 . [facility] Glucagon 1 MG Injection glucagon (GLUCAGON EMERGENCY) 1 MG injection glucagon (GLUCAGON EMERGENCY) 1 MG injection 10/11/2018 12:00:00 AM EST aborted Type 1 diabetes mellitus with hyperglycemia Inject 1 mg SC/IM for severe hypoglycemic event. [facility] Type 1 diabetes mellitus with hyperglyce oneil Dexamethasone 1 MG/ML Ophthalmic Solutio n dexamethasone sodium phosphate 0.1 % eye drops INSTILL 2 DROPS THROUGH TRACHE SITE THREE TIMES DAILY FOR 5 DAYS INSTRUCTED dexamethasone sodium phosphate 0.1 % eye drops INSTILL 2 DROPS THROUGH TRACHE SITE THREE TIMES DAILY FOR 5 DAYS INSTRUCTED completed dexamethasone phosphate 1 MG/ML Ophthalmic Solution CYNDI ([facility]) Ciprofloxacin 3 MG/ML Ophthalmic Solutio n ciprofloxacin 0.3 % eye drops INSTILL 2 DROPS THROUGH TRACHE SITE THREE TIMES DAILY FOR 5 DAYS INSTRUCTED ciprofloxacin 0.3 % eye drops INSTILL 2 DROPS THROUGH TRACHE SITE THREE TIMES DAILY FOR 5 DAYS INSTRUCTED complet ed ciprofloxacin 3 MG/ML Ophthalmic Solution [facility] ([facility]) Cholecalciferol 2000 UNT Oral Tablet cho lecalciferol (vitamin D3) 50 mcg (2,000 unit) tablet TK ONE T PO D cholecalciferol (vitamin D3) 50 mcg (2,0 00 unit) tablet TK ONE T PO D completed cholecalciferol 0.05 MG Oral Tablet [facility] ([facility]) Prednisone 20 MG Oral Tablet prednisone 20 mg tablet T K 2 TS PO D FOR 4 DAYS prednisone 20 mg tablet TK 2 TS PO D FOR 4 DAYS completed prednisone 20 MG Oral Tablet [facility] ([facility]) Cholecalciferol 2000 UNT Oral Tablet cho lecalciferol (vitamin D3) 50 mcg (2,000 unit) tablet TK ONE T PO D cholecalciferol (vitamin D3) 50 mcg (2,0 00 unit) tablet TK ONE T PO D completed cholecalciferol 0.05 MG Oral Tablet [facility] ([facility]) Lisinopril 5 MG Oral Tablet lisinopril 5 mg tablet TK 1 T PO QD lisinopril 5 mg tablet TK 1 T PO QD completed li sinopril 5 MG Oral Tablet CY[facility]I ([facility]) Ibuprofen 600 MG Oral Tablet ibuprofen 600 mg tablet ibuprofen 6 00 mg tablet completed ibuprofen 600 MG Oral Tablet [facility] ([facility]) Lisinopril 5 MG Oral Tablet lisinopril 5 mg tablet TK 1 T PO QD lisinopril 5 mg tablet TK 1 T PO QD completed li sinopril 5 MG Oral Tablet CYNDI ([facility]) Insulin, Aspart, Human 100 UNT/ML Inject able Solution [NovoLog] Novolog U-100 Insulin aspart 100 unit/mL subcutaneous solution INJECT PER SLIDING SCALE MDD 95 UNITS WITH TITRATION Novolog U-100 Insulin aspart 100 unit/mL subcutaneous solution INJECT PER SLIDING SCALE MDD 95 UNITS WITH TITRATION completed insulin aspart, human 100 UNT/ML Injectable Solution [NovoLog] [facility] ([facility]) Cholecalciferol 2000 UNT Oral Tablet cho lecalciferol (vitamin D3) 50 mcg (2,000 unit) tablet TK ONE T PO D cholecalciferol (vitamin D3) 50 mcg (2,0 00 unit) tablet TK ONE T PO D completed cholecalciferol 0.05 MG Oral Tablet [facility] ([facility]) Lisinopril 5 MG Oral Tablet lisinopril 5 mg tablet TK 1 T PO QD lisinopril 5 mg tablet TK 1 T PO QD completed li sinopril 5 MG Oral Tablet [facility] ([facility]) Cholecalciferol 5000 UNT Oral Capsule Vitamin D3 125 M CG (5000 UT) Oral Capsule Vitamin D3 125 MCG (5000 UT) Oral Capsule 5000 U Oral aborted Take 5,000 Units by mouth Once Daily [facility] Lisinopril 5 MG Oral Tablet lisinopril 5 mg tablet TK 1 T PO QD lisinopril 5 mg tablet TK 1 T PO QD completed li sinopril 5 MG Oral Tablet [facility] ([facility]) Phosphorous Supplement 280 mg-160 mg-250 mg oral powder packet MIX 1 PACKET AND DRINK THREE TIMES DAILY [id number] completed Phosphorous Supplement 280 mg-160 mg-250 mg oral powder packet [facility]I ([facility]) Baqsimi 3 mg/actuation nasal spray SPRAY 3MG IN ONE NOSTRIL TO TREAT SEVERE HYPOGLYCEMIA 154302 completed gl ucagon 3 MG Nasal Powder [Baqsimi] [facility]I ([facility]) OneTouch Ultra Blue Test Strip USE TO CHECK BLOOD GLUCOSE 6 TIMES D [id number] completed OneTouch Ultra Blue Te st Strip [facility] ([facility]) Cholecalciferol 00729 UNT Oral Capsule c holecalciferol (vitamin D3) 1,250 mcg (50,000 unit) capsule TK 1 C PO ONCE PER WEEK cholecalciferol (vitamin D3) 1,250 mcg (50,000 unit) capsule TK 1 C PO ONCE PER WEEK completed cholecalciferol 1.25 MG Oral Capsule [facility] ([facility]) Baqsimi 3 mg/actuation nasal spray SPRAY 3MG IN ONE NOSTRIL TO TREAT SEVERE HYPOGLYCEMIA 774079 completed gl ucagon 3 MG Nasal Powder [Baqsimi] [facility] ([facility]) Prednisone 20 MG Oral Tablet prednisone 20 mg tablet T K 2 TS PO D FOR 4 DAYS prednisone 20 mg tablet TK 2 TS PO D FOR 4 DAYS completed prednisone 20 MG Oral Tablet [facility] ([facility]) Prednisone 20 MG Oral Tablet prednisone 20 mg tablet T K 2 TS PO D FOR 4 DAYS prednisone 20 mg tablet TK 2 TS PO D FOR 4 DAYS completed prednisone 20 MG Oral Tablet [facility] ([facility]) atorvastatin 40 MG Oral Tablet atorvastatin 40 mg tabl et atorvastatin 40 mg tablet completed atorvastatin 40 MG Oral Tablet [facility] ([facility]) Ergocalciferol 11253 UNT Oral Capsule er gocalciferol (vitamin D2) 1,250 mcg (50,000 unit) capsule TK 1 C PO 1 TIME A WK FOR 8 WKS ONLY ergocalciferol (vitamin D2) 1,250 mcg (50,000 unit) capsule TK 1 C PO 1 TIME A WK FOR 8 WKS ONLY completed ergocalciferol 1 .25 MG Oral Capsule CY[facility] ([facility]) Phosphorous Supplement 280 mg-160 mg-250 mg oral powder packet MIX 1 PACKET AND DRINK THREE TIMES DAILY [id number] completed Phosphorous Supplement 280 mg-160 mg-250 mg oral powder packet [facility] ([facility]) atorvastatin 20 MG Oral Tablet atorvastatin 20 mg tabl et atorvastatin 20 mg tablet completed atorvastatin 20 MG Oral Tablet [facility] ([facility]) Cholecalciferol 07081 UNT Oral Capsule c holecalciferol (vitamin D3) 1,250 mcg (50,000 unit) capsule TK 1 C PO ONCE PER WEEK cholecalciferol (vitamin D3) 1,250 mcg (50,000 unit) capsule TK 1 C PO ONCE PER WEEK completed cholecalciferol 1.25 MG Oral Capsule [facility] ([facility]) Phosphorous Supplement 280 mg-160 mg-250 mg oral powder packet MIX 1 PACKET AND DRINK THREE TIMES DAILY [id number] completed Phosphorous Supplement 280 mg-160 mg-250 mg oral powder packet [facility] ([facility]) Baqsimi 3 mg/actuation nasal spray SPRAY 3MG IN ONE NOSTRIL TO TREAT SEVERE HYPOGLYCEMIA 444728 completed gl ucagon 3 MG Nasal Powder [Baqsimi] [facility]NDI ([facility]) Phosphorous Supplement 280 mg-160 mg-250 mg oral powder packet MIX 1 PACKET AND DRINK THREE TIMES DAILY [id number] completed Phosphorous Supplement 280 mg-160 mg-250 mg oral powder packet CYNDI ([facility]) Ergocalciferol 28232 UNT Oral Capsule er gocalciferol (vitamin D2) 1,250 mcg (50,000 unit) capsule TK 1 C PO 1 TIME A WK FOR 8 WKS ONLY ergocalciferol (vitamin D2) 1,250 mcg (50,000 unit) capsule TK 1 C PO 1 TIME A WK FOR 8 WKS ONLY completed ergocalciferol 1 .25 MG Oral Capsule CYNDI ([facility]) Ciprofloxacin 3 MG/ML Ophthalmic Solutio n ciprofloxacin 0.3 % eye drops INSTILL 2 DROPS THROUGH TRACHE SITE THREE TIMES DAILY FOR 5 DAYS INSTRUCTED ciprofloxacin 0.3 % eye drops INSTILL 2 DROPS THROUGH TRACHE SITE THREE TIMES DAILY FOR 5 DAYS INSTRUCTED complet ed ciprofloxacin 3 MG/ML Ophthalmic Solution [facility] ([facility]) Ergocalciferol 76687 UNT Oral Capsule er gocalciferol (vitamin D2) 1,250 mcg (50,000 unit) capsule TK 1 C PO 1 TIME A WK FOR 8 WKS ONLY ergocalciferol (vitamin D2) 1,250 mcg (50,000 unit) capsule TK 1 C PO 1 TIME A WK FOR 8 WKS ONLY completed ergocalciferol 1 .25 MG Oral Capsule CYNDI ([facility]) Ciprofloxacin 3 MG/ML Ophthalmic Solutio n ciprofloxacin 0.3 % eye drops INSTILL 2 DROPS THROUGH TRACHE SITE THREE TIMES DAILY FOR 5 DAYS INSTRUCTED ciprofloxacin 0.3 % eye drops INSTILL 2 DROPS THROUGH TRACHE SITE THREE TIMES DAILY FOR 5 DAYS INSTRUCTED complet ed ciprofloxacin 3 MG/ML Ophthalmic Solution [facility] ([facility]) Dexamethasone 1 MG/ML Ophthalmic Solutio n dexamethasone sodium phosphate 0.1 % eye drops INSTILL 2 DROPS THROUGH TRACHE SITE THREE TIMES DAILY FOR 5 DAYS INSTRUCTED dexamethasone sodium phosphate 0.1 % eye drops INSTILL 2 DROPS THROUGH TRACHE SITE THREE TIMES DAILY FOR 5 DAYS INSTRUCTED completed dexamethasone phosphate 1 MG/ML Ophthalmic Solution CYNDI ([facility]) Prednisone 20 MG Oral Tablet prednisone 20 mg tablet T K 2 TS PO D FOR 4 DAYS prednisone 20 mg tablet TK 2 TS PO D FOR 4 DAYS completed prednisone 20 MG Oral Tablet [facility] ([facility]) Cholecalciferol 2000 UNT Oral Tablet cho lecalciferol (vitamin D3) 50 mcg (2,000 unit) tablet TK ONE T PO D cholecalciferol (vitamin D3) 50 mcg (2,0 00 unit) tablet TK ONE T PO D completed cholecalciferol 0.05 MG Oral Tablet [facility] ([facility]) Dexamethasone 1 MG/ML Ophthalmic Solutio n dexamethasone sodium phosphate 0.1 % eye drops INSTILL 2 DROPS THROUGH TRACHE SITE THREE TIMES DAILY FOR 5 DAYS INSTRUCTED dexamethasone sodium phosphate 0.1 % eye drops INSTILL 2 DROPS THROUGH TRACHE SITE THREE TIMES DAILY FOR 5 DAYS INSTRUCTED completed dexamethasone phosphate 1 MG/ML Ophthalmic Solution CYNDI ([facility]) Baqsimi 3 mg/actuation nasal spray SPRAY 3MG IN ONE NOSTRIL TO TREAT SEVERE HYPOGLYCEMIA [id number] completed gl ucagon 3 MG Nasal Powder [Baqsimi] [facility] ([facility]) atorvastatin 20 MG Oral Tablet atorvastatin 20 mg tabl et atorvastatin 20 mg tablet completed atorvastatin 20 MG Oral Tablet CY[facility]I ([facility]) Insulin, Aspart, Human 100 UNT/ML Inject able Solution [NovoLog] Novolog U-100 Insulin aspart 100 unit/mL subcutaneous solution INJECT PER SLIDING SCALE MDD 95 UNITS WITH TITRATION Novolog U-100 Insulin aspart 100 unit/mL subcutaneous solution INJECT PER SLIDING SCALE MDD 95 UNITS WITH TITRATION completed insulin aspart, human 100 UNT/ML Injectable Solution [NovoLog] CYNDI ([facility]) Cholecalciferol 2000 UNT Oral Tablet cho lecalciferol (vitamin D3) 50 mcg (2,000 unit) tablet TK ONE T PO D cholecalciferol (vitamin D3) 50 mcg (2,0 00 unit) tablet TK ONE T PO D completed cholecalciferol 0.05 MG Oral Tablet [facility] ([facility]) Insulin, Aspart, Human 100 UNT/ML Inject able Solution [NovoLog] Novolog U-100 Insulin aspart 100 unit/mL subcutaneous solution INJECT PER SLIDING SCALE MDD 95 UNITS WITH TITRATION Novolog U-100 Insulin aspart 100 unit/mL subcutaneous solution INJECT PER SLIDING SCALE MDD 95 UNITS WITH TITRATION completed insulin aspart, human 100 UNT/ML Injectable Solution [NovoLog] [facility] ([facility]) Ergocalciferol 50719 UNT Oral Capsule er gocalciferol (vitamin D2) 1,250 mcg (50,000 unit) capsule TK 1 C PO 1 TIME A WK FOR 8 WKS ONLY ergocalciferol (vitamin D2) 1,250 mcg (50,000 unit) capsule TK 1 C PO 1 TIME A WK FOR 8 WKS ONLY completed ergocalciferol 1 .25 MG Oral Capsule [facility] ([facility]) insulin syringe U-100 with needle 1 mL 31 gauge x 5/16" [id number] completed insulin syringe U-100 with needl e 1 mL 31 gauge x 5/16" CYNDI ([facility]) atorvastatin 20 MG Oral Tablet atorvastatin 20 mg tabl et atorvastatin 20 mg tablet completed atorvastatin 20 MG Oral Tablet CY[facility]I ([facility]) Lisinopril 5 MG Oral Tablet lisinopril 5 mg tablet TK 1 T PO QD lisinopril 5 mg tablet TK 1 T PO QD completed li sinopril 5 MG Oral Tablet YCNDI ([facility]) Lisinopril 10 MG Oral Tablet lisinopril 10 mg tablet T K 1 T PO D lisinopril 10 mg tablet TK 1 T PO D completed lisinopril 10 MG Oral Tablet CYNDI ([facility]) Ibuprofen 600 MG Oral Tablet ibuprofen 600 mg tablet ibuprofen 6 00 mg tablet completed ibuprofen 600 MG Oral Tablet [facility] ([facility]) OneTouch Ultra Test strips USE INSTRUCTED 6 TIMES D AILY TO CHECK SUGARS 722747 completed OneTouch Ultra Test strips [facility] ([facility]) Phosphorous Supplement 280 mg-160 mg-250 mg oral powder packet MIX 1 PACKET AND DRINK THREE TIMES DAILY [id number] completed Phosphorous Supplement 280 mg-160 mg-250 mg oral powder packet [facility] ([facility]) Unifine Pentips 31 gauge x 1/4" needle U SE DIRECTED WITH TRESIBA AND NOVOLOG PENS UP TO 6 TIMES DAILY 279938 completed Unifine Pentips 31 gauge x 1/4" needle [facility] ([facility]) atorvastatin 40 MG Oral Tablet atorvastatin 40 mg tabl et atorvastatin 40 mg tablet completed atorvastatin 40 MG Oral Tablet [facility] ([facility]) Phosphorous Supplement 280 mg-160 mg-250 mg oral powder packet MIX 1 PACKET AND DRINK THREE TIMES DAILY 132945 completed Phosphorous Supplement 280 mg-160 mg-250 mg oral powder packet CYNDI ([facility]) Prednisone 20 MG Oral Tablet prednisone 20 mg tablet T K 2 TS PO D FOR 4 DAYS prednisone 20 mg tablet TK 2 TS PO D FOR 4 DAYS completed prednisone 20 MG Oral Tablet [facility] ([facility]) Ergocalciferol 99881 UNT Oral Capsule er gocalciferol (vitamin D2) 1,250 mcg (50,000 unit) capsule TK 1 C PO 1 TIME A WK FOR 8 WKS ONLY ergocalciferol (vitamin D2) 1,250 mcg (50,000 unit) capsule TK 1 C PO 1 TIME A WK FOR 8 WKS ONLY completed ergocalciferol 1 .25 MG Oral Capsule CYDNI ([facility]) Cholecalciferol 34261 UNT Oral Capsule c holecalciferol (vitamin D3) 1,250 mcg (50,000 unit) capsule TK 1 C PO ONCE PER WEEK cholecalciferol (vitamin D3) 1,250 mcg (50,000 unit) capsule TK 1 C PO ONCE PER WEEK completed cholecalciferol 1.25 MG Oral Capsule [facility] ([facility]) atorvastatin 20 MG Oral Tablet atorvastatin 20 mg tabl et atorvastatin 20 mg tablet completed atorvastatin 20 MG Oral Tablet CY[facility] ([facility]) Lisinopril 10 MG Oral Tablet lisinopril 10 mg tablet T K 1 T PO D lisinopril 10 mg tablet TK 1 T PO D completed lisinopril 10 MG Oral Tablet CY[facility] ([facility]) Ibuprofen 600 MG Oral Tablet ibuprofen 600 mg tablet ibuprofen 6 00 mg tablet completed ibuprofen 600 MG Oral Tablet CY[facility] ([facility]) atorvastatin 20 MG Oral Tablet atorvastatin 20 mg tabl et atorvastatin 20 mg tablet completed atorvastatin 20 MG Oral Tablet [facility] ([facility]) Prednisone 20 MG Oral Tablet prednisone 20 mg tablet T K 2 TS PO D FOR 4 DAYS prednisone 20 mg tablet TK 2 TS PO D FOR 4 DAYS completed prednisone 20 MG Oral Tablet [facility] ([facility]) Lisinopril 10 MG Oral Tablet lisinopril 10 mg tablet T K 1 T PO D lisinopril 10 mg tablet TK 1 T PO D completed lisinopril 10 MG Oral Tablet CY[facility]I ([facility]) Cholecalciferol 2000 UNT Oral Tablet cho lecalciferol (vitamin D3) 50 mcg (2,000 unit) tablet TK ONE T PO D cholecalciferol (vitamin D3) 50 mcg (2,0 00 unit) tablet TK ONE T PO D completed cholecalciferol 0.05 MG Oral Tablet CY[facility]I ([facility]) atorvastatin 40 MG Oral Tablet atorvastatin 40 mg tabl et atorvastatin 40 mg tablet completed atorvastatin 40 MG Oral Tablet CY[facility] ([facility]) atorvastatin 20 MG Oral Tablet atorvastatin 20 mg tabl et atorvastatin 20 mg tablet completed atorvastatin 20 MG Oral Tablet CY[facility]I ([facility]) Baqsimi 3 mg/actuation nasal spray SPRAY 3MG IN ONE NOSTRIL TO TREAT SEVERE HYPOGLYCEMIA [id number] completed gl ucagon 3 MG Nasal Powder [Baqsimi] [facility] ([facility]) Ergocalciferol 65079 UNT Oral Capsule er gocalciferol (vitamin D2) 1,250 mcg (50,000 unit) capsule TK 1 C PO 1 TIME A WK FOR 8 WKS ONLY ergocalciferol (vitamin D2) 1,250 mcg (50,000 unit) capsule TK 1 C PO 1 TIME A WK FOR 8 WKS ONLY completed ergocalciferol 1 .25 MG Oral Capsule [facility] ([facility]) Baqsimi 3 mg/actuation nasal spray SPRAY 3MG IN ONE NOSTRIL TO TREAT SEVERE HYPOGLYCEMIA 967861 completed gl ucagon 3 MG Nasal Powder [Baqsimi] [facility] ([facility]) Lisinopril 5 MG Oral Tablet lisinopril 5 mg tablet TK 1 T PO QD lisinopril 5 mg tablet TK 1 T PO QD completed li sinopril 5 MG Oral Tablet [facility] ([facility]) Insurance Providers Payer name Policy type / Coverage type Policy ID Covered democrat ID 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 Policy Laird Plan Information GHI FAMILY HLTH PLUS [id number] SP [id number] GHI FAMILY HLTH PLUS [id number] SP [id number] [employer] COMP [id number] SP [id number] [place] PPO 302/307 [id number] SP [id number] 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 [id number] SP [id number] SELF PAY ONLY [id number] SP [id number] SELF PAY ONLY [id number] SP [id number] SELF PAY ONLY - [id number] SP [place] 121/621 [id number] SP [id number] BCBS/Blue Card Commercial [id number] Self [id number] BCBS/Blue Card Commercial [id number] Self [id number] EXCELLUS BCBS B [id number] S MCQ [id number] Excellus [employer] [id number] Self [id number] Excellus [employer] [id number] Self [id number] [place] [id number] SP [id number] [email or web address] [id number] Self Excellus BCBS Health Maintenance Organization (HMO) [id number] Self BS [place] Commercial [id number] Self [place] 121/621 [id number] SP [id number] [place]BS [place] PPO 302/307 [id number] SP [id number] SELF PAY UNAVAILABLE SP UNAVAILA BLE [place]BS [place] [id number] UNAVAILABLE SP UNAVAILABLE [place] [place] [id number] SP [id number] MEDICAID [id number] SP [id number] HMO BLUE [id number] SP [id number] HMO BLUE [id number] SP [id number] HMO BLUE [id number] SP [id number] COMPSYCH [id number] SP [id number] [place]OL [place] [id number] SP [id number] CAROL [id number] SP [id number] [place]OL [place] [id number] S [id number] ANSI-Not a Secondary Insurance [id number] CAROL [place] [id number] SP [id number] [place] 121/621 [id number] SP [id number] [facility] [id number] SP [id number] [place] 121/621 [id number] SP [id number] BCBS/Blue Card Commercial [id number] Self [id number] ANSI-Commercial [id number] BCBS/Blue Card Commercial [id number] Self [id number] BCBS/Blue Card Commercial [id number] Self [id number] BCBS/Blue Card Commercial [id number] Self [id number] BCBS [place] [id number] S MCQ [id number] BCBS 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 12:00:00 AM EST CYNDI ([facility]) [id number] 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 12:00:00 AM EST CYNDI ([facility]) 43320792 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 12:00:00 AM EST CYNDI ([facility]) 54416740 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 12:00:00 AM EST CYNDI ([facility]) 20465565 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 SQHMFm9jYcOIQuGc60/CFMlhVXPvw2TwJDbuPEr7LNsjDANnL6KaMIW2rQ3kDDJ9OJhKJtDbRvEjNyQ5 lbm [file] AgICAgICAgICAgICAgICAgICAgICAgICAgICAgICAgICAgICAgICAgICAgICAgICAgICAgICAgICAgIC AgICAgICAgICAgICAgICAgICAgICAgICAgICAgDQogICAgICAgICAgICAgICAgICAgICAgICAgICAgIC AgICAgICAgICAgICAgICAgICAgICAgICAgICAgICAg ICAgICAgICAgICAgICAgICAgICAgICAgICAgICAgICAgICAgICAgDQogICAgICAgICAgICAgICAgICAg ICAgICAgICAgICAgICAgICAgICAgICAgICAgICAgICAgICAgICAgICAgICAgICAgICAgICAgICAgICAg ICAgICAgICAgICAgICAgICAgICAgDQogICAgICAgIC AgICAgICAgICAgICAgICAgICAgICAgICAgICAgICAgICAgICAgICAgICAgICAgICAgICAgICAgICAgIC AgICAgICAgICAgICAgICAgICAgICAgICAgICAgICAgDQogICAgICAgICAgICAgICAgICAgICAgICAgIC AgICAgICAgICAgICAgICAgICAgICAgICAgICAgICAg ICAgICAgICAgICAgICAgICAgICAgICAgICAgICAgICAgICAgICAgICAgDQogICAgICAgICAgICAgICAg ICAgICAgICAgICAgICAgICAgICAgICAgICAgICAgICAgICAgICAgICAgICAgICAgICAgICAgICAgICAg ICAgICAgICAgICAgICAgICAgICAgICAgDQogICAgIC AgICAgICAgICAgICAgICAgICAgICAgICAgICAgICAgICAgICAgICAgICAgICAgICAgICAgICAgICAgIC AgICAgICAgICAgICAgICAgICAgICAgICAgICAgICAgICAgDQogICAgICAgICAgICAgICAgICAgICAgIC AgICAgICAgICAgICAgICAgICAgICAgICAgICAgICAg ICAgICAgICAgICAgICAgICAgICAgICAgICAgICAgICAgICAgICAgICAgICAgDQogICAgICAgICAgICAg ICAgICAgICAgICAgICAgICAgICAgICAgICAgICAgICAgICAgICAgICAgICAgICAgICAgICAgICAgICAg ICAgICAgICAgICAgICAgICAgICAgICAgICAgDQogIC AgICAgICAgICAgICAgICAgICAgICAgICAgICAgICAgICAgICAgICAgICAgICAgICAgICAgICAgICAgIC KdBCFiNANmZLSyOCYiTCYbQFVjYSMpLBHcKRAzZBOwKNNjOIFkIUq1O5nqLHRkWUErYZ4qSSr2Yj9+DQ eSMpVqNYY3pvTfcR5WFW1mz8PkPMqgJCJbf5MrYPv1 KR9WMLNwOXjqQD1MPVlakt7PQAUgKHQowVFUd6weYkLmNTV9YOMoTdyuIF8GFQBxG9nhrcXmTLYxOSFW JPpgGAYIDLbjFGQTSDJgJBPdOqHhYuRjFWMtABCqOOCLCTN5JSWtLcDvFQocUO4Yz4UvwZN2RIw+Pg0K AM8lc9FbUDocYZEeKQ0cnc7RRXnRKqPiM3QhkbZ5SF WkKIRpYw7AEJTbNJYzeEElIfBqBTTIGgInG6JhyH12UMUYKy2+NBupduGdXegEEcYcTNYgy8DgHGd2MU 4QHTLyLAx0iHJdBFXcM5Oaf6AzOb52JBPwLgduHHIdpLRshUHoDuFGGVMleN0zsH3uKKIJVGUniSM0Vf A0SeKjLhRnHDc0RsFqOU0vHNqzYM3FUHP9OCqkJUHy YPWfK9nZVsYhKJNbBrEqeOkqJJ9KOqBiQ9MsnjFasMSwRXRzPZWUZl0+ECbihoUcAxqDMxAbDREho5Wq RMm5BA1WRPYfWWsnBJ9HAYRktU0pXRfkHS5UObDhYBVzQDCUZnPuW66hcKZjIZe6U0OsBsZeKCFkZdpv ZXMgPDwvTmFtZXMgWyBdDQogID4+ID4+WWseUH7FDW nswaGtXSNlZw7NISAqSRWcFN7pSOIqMTDrH0A8hLbsRXBONdIrJ4orqlteKS1zAGCfA980gVnneqYxKR PnIRAwAt6EKIQwUZV4LXWtlTEtYnJqMUORVKiiKC6PbDVkIAM3fD3qNDzkEUDgUNCyC0zVGbMhzZjcHE 51bGwgbnVsbCBdDQo+Gt1ZJC6ez3WeTOc0qjYgNEcj YID7FBpxZDYkNCJuFIYuRDJ8NEJ0KDZSSoQyLYDqSYXnXVetKQCcXYUnrv4ZCXIqFQTfGaW6VRKzPUHa XHWwTPsqBJJhWOM4MjglKTOxSVMpEF7TBdUdTQOvWCQuGRyiCOGrJXGyfd7GKNVlUWBjENW4OiKkJJQl GFFkFSmdKZEaYEH6CuHwBFAdVNMjDH1JRdBzUIQaJL maIvnsZJWmKDRcwc7SCLSgRDFoAEAmRvSjNNHkLAEhTIaiDKGgYWWbGwP2SNPnJTWxVI6ONqEsOZOiAZ T9OtVsVYBmMBJjon1PIXJbEGXsCWA0HmOvHAPxGURiYSywISMmQZY1PxmgZDEgYXWpFR2FKjTkUNOxVH vjHSNoDDOnOUTemm9PLKOzYRNvHoQ5UURhWYPqIBUd DGxaFZSwIRYcYePcYHVxBBFiJU7RPjZuMLKfTrK9AenaIYWfOQCxqs2OVGJbUXWiSeG0LCIbHHKnYZUa SJsuOYElGEGlAVvfYXKwJUMiSN5HYiXwXMVgXgS9VQQvIYJpHPFnhx3URMWtBPTpBsp6MfXaQAVxVMYz XGkoYFWtYNYpFLXvSSKwHFYsBJ2SJiKnTCMzKyQ3XH osAWTlMHLfrc6RNNPfXJRkRLG1IQMdWWNxLCHtEEosHMQjJJN5Onl8GGWqNUZqOG7GCjHvHNIqEyG1WG vaJZHxJEJflk2WGIFdBZYvWuXfXMBcLYVlYGFbTMflXSMbAPS2YxCpXOZhFKWkDG7EVnQnJTPfLlu6LD PhJISeAPEsin6UXOLuPUCzCdLpYDXdFUEfWNEgBNee SZHiZJT0ILTbILWqCZXhPO9VWqBwVOAxSdd6IRqvRNNzMVYsod6YRVTkUYEjLNT8UHTwEXEgLXWfZZxe OJLyMEZ6JsC7OXWzRMIeFF6XBwGcVEorIHZSKjl0AWveT9c2LYCeET2HQ2Iqs5BuNdKyDVWMNLljLO0h dtMjVVUqRv3PG8wRHmhjVqNkERJ4TUUlTnB7AAQjWL NbEiHjRLO6VHHrQCYrCS4jFXQ4WVI8DRA5RAZzOlO7JEDmDLAnC6U9Zsk6EQZ2EIUxUsPtGG4HVd6BZw L1APR6iWLnOy1XYfa4TJjUWvPyKS8SZHj= ID Date Data Source [id number] 05/28/2021 09:10:59 AM EDT [facility] Name Value Range Interpretation Code Description Data Claribel rce(s) Supporting Document(s) Progress Note 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 [file] [id number]GG8CXJn== ID Date Data Source [id number] 05/07/2021 08:53:00 AM EDT [facility]) Name Value Range Interpretation Code Description Data Claribel rce(s) Supporting Document(s) Hemoglobin A1c/Hemoglobin.total in Blood 8.7 %_of_total_HGB <5.7 Above high normal Hemoglobin a1C [facility]) ID Date Data Source [id number] 05/07/2021 08:53:00 AM EDT [facility]) Name Value Range Interpretation Code Description Data Claribel rce(s) Supporting Document(s) Leukocytes [#/volume] in Blood by Automated count 5.2 thousand/uL 3 .8-10.8 White Blood Cell Count CYNDI ([facility]) Erythrocytes [#/volume] in Blood by Automated count 3.84 million/uL 3.80-5.10 Red Blood Cell Count CYNDI ([facility]) Hemoglobin [Mass/volume] in Blood 11.3 g/dL 11.7-15.5 Below l ow normal Hemoglobin [facility]I ([facility]) Hematocrit [Volume Fraction] of Blood by Automated count 33.0 % 35.0-45.0 Below low normal Hematocrit [facility] ([facility]) Erythrocyte mean corpuscular volume [Entitic volume] by Auto mated count 85.9 fL 80.0-100.0 Mcv [facility] ([facility]) Erythrocyte mean corpuscular hemoglobin [Entitic mass] by Automated count 29.4 pg 27.0-33.0 Mch CYNDI ([facility]) Erythrocyte mean corpuscular hemoglobin concentration [Mass/volume] by Automated count 34.2 g/dL 32.0-36.0 Mchc [facility]I ([facility]) Erythrocyte distribution width [Ratio] by Automated count 12.7 % 11.0-15.0 Rdw CYNDI ([facility]) Platelets [#/volume] in Blood by Automated count 262 thousand/uL 14 0-400 Platelet Count CY[facility]I ([facility]) Platelet mean volume [Entitic volume] in Blood by Jonn-Lara 10.0 f L 7.5-12.5 Mpv CYNDI ([facility]) Neutrophils [#/volume] in Blood by Automated count 3052 cells/uL 15 00-7800 Absolute Neutrophils CYNDI ([facility]) Lymphocytes [#/volume] in Blood by Automated count 1758 cells/uL 85 0-3900 Absolute Lymphocytes [facility]I ([facility]) Monocytes [#/volume] in Blood by Automated count 328 cells/uL 200-9 50 Absolute Monocytes [facility] ([facility]) Eosinophils [#/volume] in Blood by Automated count 21 cells/uL 15- 500 Absolute Eosinophils [facility]I ([facility]) Basophils [#/volume] in Blood by Automated count 42 cells/uL 0-200 Absolute Basophils [facility]) Neutrophils/100 leukocytes in Blood by Automated count 58.7 % 38-80 Neutrophils CY[facility]I ([facility]) Lymphocytes/100 leukocytes in Blood by Automated count 33.8 % 15-49 Lymphocytes [facility] ([facility]) Monocytes/100 leukocytes in Blood by Automated count 6.3 % 0-13 Monocytes [facility]I ([facility]) Eosinophils/100 leukocytes in Blood by Automated count 0.4 % 0-8 Eosinophils [facility] ([facility]) Basophils/100 leukocytes in Blood by Automated count 0.8 % 0-2 Basophils [facility] ([facility]) ID Date Data Source [id number] 05/07/2021 08:53:00 AM EDT [facility]) Name Value Range Interpretation Code Description Data Claribel rce(s) Supporting Document(s) Glucose [Mass/volume] in Serum or Plasma 153 mg/dL 65-99 Above high normal Glucose [facility] ([facility]) Urea nitrogen [Mass/volume] in Serum or Plasma 18 mg/dL 7-25 [facility] [facility] [place] Creatinine [Mass/volume] in Serum or Plasma 0.88 mg/dL 0.50-1.10 Creatinine CYNDI ([facility]) Glomerular filtration rate/1.73 sq M.pre dicted among non-blacks [Volume Rate/Area] in Serum, Plasma or Blood by Creatinine-based formula (CKD-EPI) 86 mL/min/1.73m2 > or = 60 eGFR Non-afr. [place] CYNDI ([facility]) Glomerular filtration rate/1.73 sq M.pre dicted among blacks [Volume Rate/Area] in Serum, Plasma or Blood by Creatinine-based formula (CKD-EPI) 100 mL/min/1.73m2 > or = 60 eGFR CYNDI ([facility]) Urea nitrogen/Creatinine [Mass Ratio] in Serum or Plasma not applic able 6-22 BUN/creatinine Ratio [facility] [place] Sodium [Moles/volume] in Serum or Plasma 139 mmol/L 135-146 Sodium [facility] ([facility]) Potassium [Moles/volume] in Serum or Plasma 3.9 mmol/L 3.5-5.3 Potassium CYNDI ([facility]) Chloride [Moles/volume] in Serum or Plasma 105 mmol/L 98-110 Chloride CYNDI ([facility]) Carbon dioxide, total [Moles/volume] in Serum or Plasma 28 mmol/L 20-32 Carbon Dioxide CYNDI ([facility]) Calcium [Mass/volume] in Serum or Plasma 9.4 mg/dL 8.6-10.2 Calcium [facility] ([facility]) Protein [Mass/volume] in Serum or Plasma 6.4 g/dL 6.1-8.1 Protein, Total [facility] ([facility]) Albumin [Mass/volume] in Serum or Plasma 3.7 g/dL 3.6-5.1 Albumin [facility] ([facility]) Globulin [Mass/volume] in Serum by calculation 2.7 g/dL_(calc) 1.9- 3.7 Globulin [facility] ([facility]) Albumin/Globulin [Mass Ratio] in Serum or Plasma 1.4 (calc) 1.0-2 .5 Albumin/globulin Ratio [facility]OT[facility]ILD ([facility]) Bilirubin.total [Mass/volume] in Serum or Plasma 0.3 mg/dL 0.2-1 .2 Bilirubin, Total [facility] ([facility]) Alkaline phosphatase [Enzymatic activity/volume] in Serum or Plasma 52 U/L 31-125 Alkaline Phosphatase ROT[facility]CHILD ([facility]) Aspartate aminotransferase [Enzymatic activity/volume] in Serum or Plasma 13 U/L 10-30 Ast ROT[facility]ILD ([facility]) Alanine aminotransferase [Enzymatic activity/volume] in Seru m or Plasma 10 U/L 6-29 Alt CYNDI ([facility]) ID Date Data Source [id number] 05/07/2021 08:53:00 AM EDT [facility]OTHS[facility] ([facility]) Name Value Range Interpretation Code Description Data Claribel rce(s) Supporting Document(s) Triiodothyronine resin uptake (T3RU) in Serum or Plasma 30 % 22 -35 T3 Uptake [facility]) Thyroxine (T4) [Mass/volume] in Serum or Plasma 7.6 mcg/dL 5.1-11 .9 T4 (Thyroxine), Total CYNDI ([facility]) Thyroxine (T4) free index in Serum or Plasma by calculation 1.4-3.8 Free T4 Index (T7) CYNDI ([facility]) Thyrotropin [Units/volume] in Serum or Plasma 2.45 mIU/L Tsh CYNDI ([facility]) ID Date Data Source [id number] 05/07/2021 08:53:00 AM EDT CYNDI ([facility]) Name Value Range Interpretation Code Description Data Claribel rce(s) Supporting Document(s) Triglyceride [Mass/volume] in Serum or Plasma 111 mg/dL <150 Triglycerides CYNDI ([facility]) Cholesterol [Mass/volume] in Serum or Plasma 198 mg/dL <200 Cholesterol, Total CYNDI ([facility]) Cholesterol in HDL [Mass/volume] in Serum or Plasma 48 mg/dL > or = 50 Below low normal HDL Cholesterol CYNDI ([facility]) Cholesterol in LDL [Mass/volume] in Serum or Plasma by calculation 128 mg/dL_(calc) Above high normal LDL-cholesterol CYNDI ([facility]) Cholesterol.total/Cholesterol in HDL [Mass Ratio] in Serum o r Plasma 4.1 (calc) <5.0 Chol/hdlc Ratio CYNDI ([facility]) Cholesterol non HDL [Mass/volume] in Serum or Plasma 150 mg/dL_( calc) <130 Above high normal Non HDL Cholesterol CYNDI ([facility]) ID Date Data Source [id number] 05/07/2021 08:53:00 AM EDT CYNDI ([facility]) Name Value Range Interpretation Code Description Data Claribel rce(s) Supporting Document(s) Iron [Mass/volume] in Serum or Plasma 40 mcg/dL 40-190 Iron, Total CYNDI ([facility]) Iron binding capacity [Mass/volume] in Serum or Plasma 311 m cg/dL_(calc) 250-450 Iron Binding Capacity CYNDI ([facility]) Iron saturation [Mass Fraction] in Serum or Plasma 13 %_(calc) 16-45 Below low normal % Saturation CYNDI ([facility]) Ferritin [Mass/volume] in Serum or Plasma 48 NG/mL 16-154 Ferritin CYNDI ([facility]) ID Date Data Source [id number] 04/02/2021 08:10:00 AM EDT [facility]OT[facility] ([facility]) Name Value Range Interpretation Code Description Data Claribel rce(s) Supporting Document(s) bedside glucose 78 mg/dL 70-105 Bedside Glucose ATHE LINDA ([facility]) ID Date Data Source [id number] 04/02/2021 08:10:00 AM EDT [facility]) Name Value Range Interpretation Code Description Data Claribel rce(s) Supporting Document(s) bedside glucose 78 mg/dL 70-105 Bedside Glucose ATHJuan Carlos ([facility]) ID Date Data Source [id number] 04/02/2021 08:10:00 AM EDT [facility]) Name Value Range Interpretation Code Description Data Claribel rce(s) Supporting Document(s) bedside glucose 78 mg/dL 70-105 Bedside Glucose ATHJuan Carlos ([facility]) ID Date Data Source [id number] 04/02/2021 05:24:00 AM EDT [facility]) Name Value Range Interpretation Code Description Data Claribel rce(s) Supporting Document(s) glucose, fasting 50 mg/dL 70-100 Below low normal Glucose, Fast ing [facility]OT[facility]ILD ([facility]) blood urea nitrogen 9 mg/dL 7-18 Blood Urea Nitro gen CYNDI ([facility]) creatinine for GFR 0.62 mg/dL 0.55-1.30 Creatinine for GF R CYNDI ([facility]) glomerular filtration rate > 60.0 >60 Glomerula r Filtration Rate CYNDI ([facility]) sodium level 143 mEq/L 136-145 Sodium Level CYNDI ([facility]) potassium serum 3.2 mEq/L 3.5-5.1 Below low normal Potassium Seru m CYNDI ([facility]) chloride level 112 mEq/L 98-107 Above high normal Chloride Level [facility]OT[facility]ILD ([facility]) carbon dioxide level 28 mEq/L 21-32 Carbon Dioxide Level ROT[employer]ILD ([facility]) anion gap 3 mEq/L 8-16 Below low normal Anion Gap ROT[facility]ILD ( [facility]) calcium level 8.5 mg/dL 8.5-10.1 Calcium Level [facility]ILD ( [facility]) ID Date Data Source [id number] 04/02/2021 05:24:00 AM EDT [facility]) Name Value Range Interpretation Code Description Data Claribel rce(s) Supporting Document(s) white blood count 3.1 10 4.0-10.0 Below low normal White Blood Count [facility]ILD ([facility]) red blood count 3.63 10 4.00-5.40 Below low normal Red Blood Coun t [facility]OT[facility]ILD ([facility]) hemoglobin 10.8 g/dL 12.0-15.5 Below low normal Hemoglobin [facility]OT[facility]ILD ( [facility]) hematocrit 31.8 % 36.0-47.0 Below low normal Hematocrit [facility]OT[facility]ILD ( [facility]) mean corpuscular volume 87.6 fL 80.0-96.0 Mean Corpusc ular Volume [facility]OT[facility]ILD ([facility]) mean corpuscular hemoglobin 29.8 pg 27.0-33.0 Mean Cor puscular Hemoglobin CYNDI ([facility]) mean corpuscular HGB conc 34.0 g/dL 32.0-36.5 Mean Corpu scular HGB Conc [facility]OT[facility]CHILD ([facility]) red cell distribution width 11.9 % 11.5-14.5 Red Cell Distribution Width [facility]ILD ([facility]) platelet count, automated 196 10 150-450 Platelet C [facility], [facility] nucleated red blood cell % 0.0 % 0-0 Nucleated Red Blood Cell % [facility]ILD ([facility]) ID Date Data Source [id number] 04/02/2021 05:24:00 AM EDT [facility]) Name Value Range Interpretation Code Description Data Claribel rce(s) Supporting Document(s) glucose, fasting 50 mg/dL 70-100 Below low normal Glucose, Fast ing [facility]ILD ([facility]) blood urea nitrogen 9 mg/dL 7-18 Blood Urea Nitro gen [facility]ILD ([facility]) creatinine for GFR 0.62 mg/dL 0.55-1.30 Creatinine for GF R [facility]OT[facility]CHILD ([facility]) glomerular filtration rate > 60.0 >60 Glomerula r Filtration Rate [facility]OT[facility]CHILD ([facility]) sodium level 143 mEq/L 136-145 Sodium Level [facility]ILD ([facility]) potassium serum 3.2 mEq/L 3.5-5.1 Below low normal Potassium Seru m [facility]OT[facility]ILD ([facility]) chloride level 112 mEq/L 98-107 Above high normal Chloride Level [facility]OT[employer]ILD ([facility]) carbon dioxide level 28 mEq/L 21-32 Carbon Dioxide Level [facility]) anion gap 3 mEq/L 8-16 Below low normal Anion Gap [facility]ILD ( [facility]) calcium level 8.5 mg/dL 8.5-10.1 Calcium Level [facility]ILD ( [facility]) ID Date Data Source [id number] 04/02/2021 05:24:00 AM EDT [facility]) Name Value Range Interpretation Code Description Data Claribel rce(s) Supporting Document(s) white blood count 3.1 10 4.0-10.0 Below low normal White Blood Count [facility] ([facility]) red blood count 3.63 10 4.00-5.40 Below low normal Red Blood Coun t [facility]OT[facility]ILD ([facility]) hemoglobin 10.8 g/dL 12.0-15.5 Below low normal Hemoglobin [facility]OT[facility]ILD ( [facility]) hematocrit 31.8 % 36.0-47.0 Below low normal Hematocrit [facility]OT[facility]ILD ( [facility]) mean corpuscular volume 87.6 fL 80.0-96.0 Mean Corpusc ular Volume CYNDI ([facility]) mean corpuscular hemoglobin 29.8 pg 27.0-33.0 Mean Cor puscular Hemoglobin [facility]OT[facility]ILD ([facility]) mean corpuscular HGB conc 34.0 g/dL 32.0-36.5 Mean Corpu scular HGB Conc [facility]OT[facility]CHILD ([facility]) red cell distribution width 11.9 % 11.5-14.5 Red Cell Distribution Width [facility] ([facility]) platelet count, automated 196 10 150-450 Platelet C ount, Automated CYNDI ([facility]) nucleated red blood cell % 0.0 % 0-0 Nucleated Red Blood Cell % [facility]ILD ([facility]) ID Date Data Source [id number] 04/02/2021 05:24:00 AM EDT [facility]) Name Value Range Interpretation Code Description Data Claribel rce(s) Supporting Document(s) glucose, fasting 50 mg/dL 70-100 Below low normal Glucose, Fast ing [facility]ILD ([facility]) blood urea nitrogen 9 mg/dL 7-18 Blood Urea Nitro gen [facility]ILD ([facility]) creatinine for GFR 0.62 mg/dL 0.55-1.30 Creatinine for GF R [facility]OT[facility]CHILD ([facility]) glomerular filtration rate > 60.0 >60 Glomerula r Filtration Rate [facility]OT[facility]CHILD ([facility]) sodium level 143 mEq/L 136-145 Sodium Level [facility]ILD ([facility]) potassium serum 3.2 mEq/L 3.5-5.1 Below low normal Potassium Seru m [facility]ILD ([facility]) chloride level 112 mEq/L 98-107 Above high normal Chloride Level [facility]OT[facility]CHILD ([facility]) carbon dioxide level 28 mEq/L 21-32 Carbon Dioxide Level [facility]ILD ([facility]) anion gap 3 mEq/L 8-16 Below low normal Anion Gap ROT[facility]CHILD ( [facility]) calcium level 8.5 mg/dL 8.5-10.1 Calcium Level [facility]) ID Date Data Source [id number] 04/02/2021 05:24:00 AM EDT [facility]OT[facility]ILD ([facility]) Name Value Range Interpretation Code Description Data Claribel rce(s) Supporting Document(s) white blood count 3.1 10 4.0-10.0 Below low normal White Blood Count [facility] ([facility]) red blood count 3.63 10 4.00-5.40 Below low normal Red Blood Coun t [facility]OT[facility]ILD ([facility]) hemoglobin 10.8 g/dL 12.0-15.5 Below low normal Hemoglobin [facility]OT[facility]CHILD ( [facility]) hematocrit 31.8 % 36.0-47.0 Below low normal Hematocrit ROT[facility]CHILD ( [facility]) mean corpuscular volume 87.6 fL 80.0-96.0 Mean Corpusc ular Volume [facility]OT[facility]CHILD ([facility]) mean corpuscular hemoglobin 29.8 pg 27.0-33.0 Mean Cor puscular Hemoglobin [facility]OT[facility]CHILD ([facility]) mean corpuscular HGB conc 34.0 g/dL 32.0-36.5 Mean Corpu scular HGB Conc ROT[facility]CHILD ([facility]) red cell distribution width 11.9 % 11.5-14.5 Red Cell Distribution Width [facility]ILD ([facility]) platelet count, automated 196 10 150-450 Platelet C ount, Automated [facility]ILD ([facility]) nucleated red blood cell % 0.0 % 0-0 Nucleated Red Blood Cell % [facility]ILD ([facility]) ID Date Data Source [id number] 04/01/2021 08:39:00 PM EDT [facility]OT[facility]ILD ([facility]) Name Value Range Interpretation Code Description Data Claribel rce(s) Supporting Document(s) bedside glucose 155 mg/dL 70-105 Above high normal Bedside Gluco se [facility]) ID Date Data Source [id number] 04/01/2021 08:39:00 PM EDT [facility]) Name Value Range Interpretation Code Description Data Claribel rce(s) Supporting Document(s) bedside glucose 155 mg/dL 70-105 Above high normal Bedside Gluco se CYNDI ([facility]) ID Date Data Source [id number] 04/01/2021 08:39:00 PM EDT [facility]OT[facility]ILD ([facility]) Name Value Range Interpretation Code Description Data Claribel rce(s) Supporting Document(s) bedside glucose 155 mg/dL 70-105 Above high normal Bedside Gluco se CYNDI ([facility]) ID Date Data Source [id number] 04/01/2021 04:57:00 PM EDT [facility]OT[facility]ILD ([facility]) Name Value Range Interpretation Code Description Data Claribel rce(s) Supporting Document(s) bedside glucose 91 mg/dL 70-105 Bedside Glucose ATHE LINDA ([facility]) ID Date Data Source [id number] 04/01/2021 04:57:00 PM EDT [facility]) Name Value Range Interpretation Code Description Data Claribel rce(s) Supporting Document(s) bedside glucose 91 mg/dL 70-105 Bedside Glucose ATHE LINDA ([facility]) ID Date Data Source [id number] 04/01/2021 04:57:00 PM EDT [facility]) Name Value Range Interpretation Code Description Data Claribel rce(s) Supporting Document(s) bedside glucose 91 mg/dL 70-105 Bedside Glucose ATHE LINDA ([facility]) ID Date Data Source [id number] 04/01/2021 11:45:00 AM EDT [facility]) Name Value Range Interpretation Code Description Data Claribel rce(s) Supporting Document(s) bedside glucose 171 mg/dL 70-105 Above high normal Bedside Gluco se [facility]ILD ([facility]) ID Date Data Source [id number] 04/01/2021 11:45:00 AM EDT [facility]OT[facility]ILD ([facility]) Name Value Range Interpretation Code Description Data Claribel rce(s) Supporting Document(s) bedside glucose 171 mg/dL 70-105 Above high normal Bedside Gluco se [facility]ILD ([facility]) ID Date Data Source [id number] 04/01/2021 11:45:00 AM EDT [facility]OT[facility]ILD ([facility]) Name Value Range Interpretation Code Description Data Claribel rce(s) Supporting Document(s) bedside glucose 171 mg/dL 70-105 Above high normal Bedside Gluco se [facility]OT[facility]ILD ([facility]) ID Date Data Source [id number] 04/01/2021 06:09:00 AM EDT ROT[facility]ILD ([facility]) Name Value Range Interpretation Code Description Data Claribel rce(s) Supporting Document(s) glucose, fasting 71 mg/dL 70-100 Glucose, Fasting AT [facility]) blood urea nitrogen 9 mg/dL 7-18 Blood Urea Nitro gen CYNDI ([facility]) creatinine for GFR 0.74 mg/dL 0.55-1.30 Creatinine for GF R [facility]OT[facility]CHILD ([facility]) glomerular filtration rate > 60.0 >60 Glomerula r Filtration Rate CYNDI ([facility]) sodium level 146 mEq/L 136-145 Above high normal Sodium Level ATH NIKOLAS ([facility]) potassium serum 3.6 mEq/L 3.5-5.1 Potassium Serum ATHE NA ([facility]) chloride level 115 mEq/L 98-107 Above high normal Chloride Level CYNDI ([facility]) carbon dioxide level 26 mEq/L 21-32 Carbon Dioxide Level CYNDI ([facility]) anion gap 5 mEq/L 8-16 Below low normal Anion Gap CYNDI ( [facility]) calcium level 9.6 mg/dL 8.5-10.1 Calcium Level [facility]) ID Date Data Source [id number] 04/01/2021 06:09:00 AM EDT ROT[facility]ILD ([facility]) Name Value Range Interpretation Code Description Data Claribel rce(s) Supporting Document(s) white blood count 4.1 10 4.0-10.0 White Blood Count [facility]OT[facility] ([facility]) red blood count 3.92 10 4.00-5.40 Below low normal Red Blood Coun t [facility]ILD ([facility]) hemoglobin 11.5 g/dL 12.0-15.5 Below low normal Hemoglobin ROT[facility]CHILD ( [facility]) hematocrit 34.3 % 36.0-47.0 Below low normal Hematocrit ROT[facility]CHILD ( [facility]) mean corpuscular volume 87.5 fL 80.0-96.0 Mean Corpusc ular Volume [facility]OT[facility]CHILD ([facility]) mean corpuscular hemoglobin 29.3 pg 27.0-33.0 Mean Cor puscular Hemoglobin [facility]OT[facility]CHILD ([facility]) mean corpuscular HGB conc 33.5 g/dL 32.0-36.5 Mean Corpu scular HGB Conc ROT[facility]ILD ([facility]) red cell distribution width 12.2 % 11.5-14.5 Red Cell Distribution Width [facility] ([facility]) platelet count, automated 205 10 150-450 Platelet C ount, Automated [facility]ILD ([facility]) nucleated red blood cell % 0.0 % 0-0 Nucleated Red Blood Cell % [facility]ILD ([facility]) ID Date Data Source [id number] 04/01/2021 06:09:00 AM EDT [facility]OT[facility]ILD ([facility]) Name Value Range Interpretation Code Description Data Claribel rce(s) Supporting Document(s) glucose, fasting 71 mg/dL 70-100 Glucose, Fasting AT [facility] ([facility]) blood urea nitrogen 9 mg/dL 7-18 Blood Urea Nitro gen [facility]OT[facility]ILD ([facility]) creatinine for GFR 0.74 mg/dL 0.55-1.30 Creatinine for GF R [facility]OT[facility]ILD ([facility]) glomerular filtration rate > 60.0 >60 Glomerula r Filtration Rate [facility]OT[facility]ILD ([facility]) sodium level 146 mEq/L 136-145 Above high normal Sodium Level ATH NIKOLAS ([facility]) potassium serum 3.6 mEq/L 3.5-5.1 Potassium Serum ATHE NA ([facility]) chloride level 115 mEq/L 98-107 Above high normal Chloride Level CYNDI ([facility]) carbon dioxide level 26 mEq/L 21-32 Carbon Dioxide Level CYNDI ([facility]) anion gap 5 mEq/L 8-16 Below low normal Anion Gap CYNDI ( [facility]) calcium level 9.6 mg/dL 8.5-10.1 Calcium Level CYNDI ( [facility]) ID Date Data Source [id number] 04/01/2021 06:09:00 AM EDT [facility]OT[facility]ILD ([facility]) Name Value Range Interpretation Code Description Data Claribel rce(s) Supporting Document(s) white blood count 4.1 10 4.0-10.0 White Blood Count CYNDI ([facility]) red blood count 3.92 10 4.00-5.40 Below low normal Red Blood Coun t CYNDI ([facility]) hemoglobin 11.5 g/dL 12.0-15.5 Below low normal Hemoglobin CYNDI ( [facility]) hematocrit 34.3 % 36.0-47.0 Below low normal Hematocrit CYNDI ( [facility]) mean corpuscular volume 87.5 fL 80.0-96.0 Mean Corpusc ular Volume CYNDI ([facility]) mean corpuscular hemoglobin 29.3 pg 27.0-33.0 Mean Cor puscular Hemoglobin CYNDI ([facility]) mean corpuscular HGB conc 33.5 g/dL 32.0-36.5 Mean Corpu scular HGB Conc CYNDI ([facility]) red cell distribution width 12.2 % 11.5-14.5 Red Cell Distribution Width CYNDI ([facility]) platelet count, automated 205 10 150-450 Platelet C ount, Automated CYNDI ([facility]) nucleated red blood cell % 0.0 % 0-0 Nucleated Red Blood Cell % [facility]ILD ([facility]) ID Date Data Source [id number] 04/01/2021 06:09:00 AM EDT [facility]OT[facility]ILD ([facility]) Name Value Range Interpretation Code Description Data Claribel rce(s) Supporting Document(s) glucose, fasting 71 mg/dL 70-100 Glucose, Fasting AT [facility] ([facility]) blood urea nitrogen 9 mg/dL 7-18 Blood Urea Nitro gen CYNDI ([facility]) creatinine for GFR 0.74 mg/dL 0.55-1.30 Creatinine for GF R [facility]OT[facility]ILD ([facility]) glomerular filtration rate > 60.0 >60 Glomerula r Filtration Rate CYNDI ([facility]) sodium level 146 mEq/L 136-145 Above high normal Sodium Level ATH NIKOLAS ([facility]) potassium serum 3.6 mEq/L 3.5-5.1 Potassium Serum ATH NA ([facility]) chloride level 115 mEq/L 98-107 Above high normal Chloride Level [facility]OT[facility]CHILD ([facility]) carbon dioxide level 26 mEq/L 21-32 Carbon Dioxide Level [facility]ILD ([facility]) anion gap 5 mEq/L 8-16 Below low normal Anion Gap ROT[facility]CHILD ( [facility]) calcium level 9.6 mg/dL 8.5-10.1 Calcium Level [facility]OT[facility]ILD ( [facility]) ID Date Data Source [id number] 04/01/2021 06:09:00 AM EDT ROT[facility] ([facility]) Name Value Range Interpretation Code Description Data Claribel rce(s) Supporting Document(s) white blood count 4.1 10 4.0-10.0 White Blood Count [facility]ILD ([facility]) red blood count 3.92 10 4.00-5.40 Below low normal Red Blood Coun t [facility]ILD ([facility]) hemoglobin 11.5 g/dL 12.0-15.5 Below low normal Hemoglobin R[facility]CHILD ( [facility]) hematocrit 34.3 % 36.0-47.0 Below low normal Hematocrit CYNDI ( [facility]) mean corpuscular volume 87.5 fL 80.0-96.0 Mean Corpusc ular Volume [facility]CHILD ([facility]) mean corpuscular hemoglobin 29.3 pg 27.0-33.0 Mean Cor puscular Hemoglobin CYNDI ([facility]) mean corpuscular HGB conc 33.5 g/dL 32.0-36.5 Mean Corpu scular HGB Conc CYNDI ([facility]) red cell distribution width 12.2 % 11.5-14.5 Red Cell Distribution Width CYNDI ([facility]) platelet count, automated 205 10 150-450 Platelet C ount, Automated CYNDI ([facility]) nucleated red blood cell % 0.0 % 0-0 Nucleated Red Blood Cell % [facility]ILD ([facility]) ID Date Data Source [id number] 03/31/2021 08:42:00 PM EDT [facility]) Name Value Range Interpretation Code Description Data Claribel rce(s) Supporting Document(s) bedside glucose 182 mg/dL 70-105 Above high normal Bedside Gluco se [facility]) ID Date Data Source [id number] 03/31/2021 08:42:00 PM EDT [facility]) Name Value Range Interpretation Code Description Data Claribel rce(s) Supporting Document(s) bedside glucose 182 mg/dL 70-105 Above high normal Bedside Gluco se [facility]) ID Date Data Source [id number] 03/31/2021 08:42:00 PM EDT [facility]) Name Value Range Interpretation Code Description Data Claribel rce(s) Supporting Document(s) bedside glucose 182 mg/dL 70-105 Above high normal Bedside Gluco se [facility]) ID Date Data Source [id number] 03/31/2021 04:45:00 PM EDT [facility]) Name Value Range Interpretation Code Description Data Claribel rce(s) Supporting Document(s) bedside glucose 166 mg/dL 70-105 Above high normal Bedside Gluco se [facility] ([facility]) ID Date Data Source [id number] 03/31/2021 04:45:00 PM EDT [facility]) Name Value Range Interpretation Code Description Data Claribel rce(s) Supporting Document(s) bedside glucose 166 mg/dL 70-105 Above high normal Bedside Gluco se [facility] ([facility]) ID Date Data Source [id number] 03/31/2021 04:45:00 PM EDT [facility]) Name Value Range Interpretation Code Description Data Claribel rce(s) Supporting Document(s) bedside glucose 166 mg/dL 70-105 Above high normal Bedside Gluco se [facility]) ID Date Data Source [id number] 03/31/2021 11:55:00 AM EDT [facility]) Name Value Range Interpretation Code Description Data Claribel rce(s) Supporting Document(s) bedside glucose 256 mg/dL 70-105 Above high normal Bedside Gluco se [facility]) ID Date Data Source [id number] 03/31/2021 11:55:00 AM EDT [facility]) Name Value Range Interpretation Code Description Data Claribel rce(s) Supporting Document(s) bedside glucose 256 mg/dL 70-105 Above high normal Bedside Gluco se [facility]) ID Date Data Source [id number] 03/31/2021 11:55:00 AM EDT [facility]) Name Value Range Interpretation Code Description Data Claribel rce(s) Supporting Document(s) bedside glucose 256 mg/dL 70-105 Above high normal Bedside Gluco se [facility]) ID Date Data Source [id number] 03/31/2021 06:54:00 AM EDT [facility]) Name Value Range Interpretation Code Description Data Claribel rce(s) Supporting Document(s) bedside glucose 154 mg/dL 70-105 Above high normal Bedside Gluco se [facility] ([facility]) ID Date Data Source [id number] 03/31/2021 06:54:00 AM EDT [facility]) Name Value Range Interpretation Code Description Data Claribel rce(s) Supporting Document(s) bedside glucose 154 mg/dL 70-105 Above high normal Bedside Gluco se [facility]) ID Date Data Source [id number] 03/31/2021 06:54:00 AM EDT [facility]) Name Value Range Interpretation Code Description Data Claribel rce(s) Supporting Document(s) bedside glucose 154 mg/dL 70-105 Above high normal Bedside Gluco se [facility] ([facility]) ID Date Data Source [id number] 03/31/2021 06:04:00 AM EDT [facility]) Name Value Range Interpretation Code Description Data Claribel rce(s) Supporting Document(s) bedside glucose 139 mg/dL 70-105 Above high normal Bedside Gluco se [facility]) ID Date Data Source [id number] 03/31/2021 06:04:00 AM EDT [facility]) Name Value Range Interpretation Code Description Data Claribel rce(s) Supporting Document(s) bedside glucose 139 mg/dL 70-105 Above high normal Bedside Gluco se [facility]) ID Date Data Source [id number] 03/31/2021 06:04:00 AM EDT [facility]) Name Value Range Interpretation Code Description Data Claribel rce(s) Supporting Document(s) bedside glucose 139 mg/dL 70-105 Above high normal Bedside Gluco se [facility] ([facility]) ID Date Data Source [id number] 03/31/2021 05:16:00 AM EDT [facility]) Name Value Range Interpretation Code Description Data Claribel rce(s) Supporting Document(s) bedside glucose 132 mg/dL 70-105 Above high normal Bedside Gluco se [facility] ([facility]) ID Date Data Source [id number] 03/31/2021 05:16:00 AM EDT [facility]) Name Value Range Interpretation Code Description Data Claribel rce(s) Supporting Document(s) bedside glucose 132 mg/dL 70-105 Above high normal Bedside Gluco se [facility] ([facility]) ID Date Data Source [id number] 03/31/2021 05:16:00 AM EDT [facility]) Name Value Range Interpretation Code Description Data Claribel rce(s) Supporting Document(s) bedside glucose 132 mg/dL 70-105 Above high normal Bedside Gluco se [facility] ([facility]) ID Date Data Source [id number] 03/31/2021 05:10:00 AM EDT [facility]) Name Value Range Interpretation Code Description Data Claribel rce(s) Supporting Document(s) glucose, fasting 128 mg/dL 70-100 Above high normal Glucose, Fas ting [facility] ([facility]) blood urea nitrogen 7 mg/dL 7-18 Blood Urea Nitro gen [facility] ([facility]) creatinine for GFR 1.04 mg/dL 0.55-1.30 Creatinine for GF R [facility] ([facility]) glomerular filtration rate > 60.0 >60 Glomerula r Filtration Rate [facility] ([facility]) sodium level 142 mEq/L 136-145 Sodium Level [facility] ([facility]) potassium serum 3.6 mEq/L 3.5-5.1 Potassium Serum ATHE NA ([facility]) chloride level 118 mEq/L 98-107 Above high normal Chloride Level [facility] ([facility]) carbon dioxide level 19 mEq/L 21-32 Below low normal Carbon Di oxide Level [facility] ([facility]) anion gap 5 mEq/L 8-16 Below low normal Anion Gap [facility] ( [facility]) calcium level 8.3 mg/dL 8.5-10.1 Below low normal Calcium Level AT [facility]) ID Date Data Source [id number] 03/31/2021 05:10:00 AM EDT [facility]) Name Value Range Interpretation Code Description Data Claribel rce(s) Supporting Document(s) white blood count 5.1 10 4.0-10.0 White Blood Count [facility] ([facility]) red blood count 3.65 10 4.00-5.40 Below low normal Red Blood Coun t [facility] ([facility]) hemoglobin 10.9 g/dL 12.0-15.5 Below low normal Hemoglobin [facility] ( [facility]) hematocrit 32.5 % 36.0-47.0 Below low normal Hematocrit [facility] ( [facility]) mean corpuscular volume 89.0 fL 80.0-96.0 Mean Corpusc ular Volume [facility] ([facility]) mean corpuscular hemoglobin 29.9 pg 27.0-33.0 Mean Cor puscular Hemoglobin [facility] ([facility]) mean corpuscular HGB conc 33.5 g/dL 32.0-36.5 Mean Corpu scular HGB Conc [facility] ([facility]) red cell distribution width 12.1 % 11.5-14.5 Red Cell Distribution Width [facility] ([facility]) platelet count, automated 220 10 150-450 Platelet [facility], [facility] [place] nucleated red blood cell % 0.0 % 0-0 Nucleated Red Blood Cell % [facility] ([facility]) ID Date Data Source [id number] 03/31/2021 05:10:00 AM EDT [facility]) Name Value Range Interpretation Code Description Data Claribel rce(s) Supporting Document(s) glucose, fasting 128 mg/dL 70-100 Above high normal Glucose, Fas ting [facility] ([facility]) blood urea nitrogen 7 mg/dL 7-18 Blood Urea Nitro gen [facility] ([facility]) creatinine for GFR 1.04 mg/dL 0.55-1.30 Creatinine for GF R [facility] ([facility]) glomerular filtration rate > 60.0 >60 Glomerula r Filtration Rate [facility] ([facility]) sodium level 142 mEq/L 136-145 Sodium Level [facility] ([facility]) potassium serum 3.6 mEq/L 3.5-5.1 Potassium Serum ATH NA ([facility]) chloride level 118 mEq/L 98-107 Above high normal Chloride Level [facility] ([facility]) carbon dioxide level 19 mEq/L 21-32 Below low normal Carbon Di oxide Level [facility] ([facility]) anion gap 5 mEq/L 8-16 Below low normal Anion Gap [facility] ( [facility]) calcium level 8.3 mg/dL 8.5-10.1 Below low normal Calcium Level AT [facility]) ID Date Data Source [id number] 03/31/2021 05:10:00 AM EDT [facility]) Name Value Range Interpretation Code Description Data Claribel rce(s) Supporting Document(s) white blood count 5.1 10 4.0-10.0 White Blood Count [facility] ([facility]) red blood count 3.65 10 4.00-5.40 Below low normal Red Blood Coun t [facility] ([facility]) hemoglobin 10.9 g/dL 12.0-15.5 Below low normal Hemoglobin [facility] ( [facility]) hematocrit 32.5 % 36.0-47.0 Below low normal Hematocrit [facility] ( [facility]) mean corpuscular volume 89.0 fL 80.0-96.0 Mean Corpusc ular Volume [facility] ([facility]) mean corpuscular hemoglobin 29.9 pg 27.0-33.0 Mean Cor puscular Hemoglobin [facility] ([facility]) mean corpuscular HGB conc 33.5 g/dL 32.0-36.5 Mean Corpu scular HGB Conc [facility] ([facility]) red cell distribution width 12.1 % 11.5-14.5 Red Cell Distribution Width [facility] ([facility]) platelet count, automated 220 10 150-450 Platelet C ount, Automated [facility] ([facility]) nucleated red blood cell % 0.0 % 0-0 Nucleated Red Blood Cell % [facility] ([facility]) ID Date Data Source [id number] 03/31/2021 05:10:00 AM EDT [facility] ([facility]) Name Value Range Interpretation Code Description Data Claribel rce(s) Supporting Document(s) glucose, fasting 128 mg/dL 70-100 Above high normal Glucose, Fas ting [facility] ([facility]) blood urea nitrogen 7 mg/dL 7-18 Blood Urea Nitro gen [facility] ([facility]) creatinine for GFR 1.04 mg/dL 0.55-1.30 Creatinine for GF R [facility] ([facility]) glomerular filtration rate > 60.0 >60 Glomerula r Filtration Rate [facility] ([facility]) sodium level 142 mEq/L 136-145 Sodium Level [facility] ([facility]) potassium serum 3.6 mEq/L 3.5-5.1 Potassium Serum ATH NA ([facility]) chloride level 118 mEq/L 98-107 Above high normal Chloride Level [facility] ([facility]) carbon dioxide level 19 mEq/L 21-32 Below low normal Carbon Di oxide Level [facility] ([facility]) anion gap 5 mEq/L 8-16 Below low normal Anion Gap [facility] ( [facility]) calcium level 8.3 mg/dL 8.5-10.1 Below low normal Calcium Level AT [facility]) ID Date Data Source [id number] 03/31/2021 05:10:00 AM EDT [facility] ([facility]) Name Value Range Interpretation Code Description Data Claribel rce(s) Supporting Document(s) white blood count 5.1 10 4.0-10.0 White Blood Count [facility] ([facility]) red blood count 3.65 10 4.00-5.40 Below low normal Red Blood Coun t [facility] ([facility]) hemoglobin 10.9 g/dL 12.0-15.5 Below low normal Hemoglobin [facility] ( [facility]) hematocrit 32.5 % 36.0-47.0 Below low normal Hematocrit [facility] ( [facility]) mean corpuscular volume 89.0 fL 80.0-96.0 Mean Corpusc ular Volume [facility] ([facility]) mean corpuscular hemoglobin 29.9 pg 27.0-33.0 Mean Cor puscular Hemoglobin [facility] ([facility]) mean corpuscular HGB conc 33.5 g/dL 32.0-36.5 Mean Corpu scular HGB Conc [facility] ([facility]) red cell distribution width 12.1 % 11.5-14.5 Red Cell Distribution Width [facility] ([facility]) platelet count, automated 220 10 150-450 Platelet C ount, Automated [facility] ([facility]) nucleated red blood cell % 0.0 % 0-0 Nucleated Red Blood Cell % [facility] ([facility]) ID Date Data Source [id number] 03/31/2021 04:06:00 AM EDT [facility] ([facility]) Name Value Range Interpretation Code Description Data Claribel rce(s) Supporting Document(s) bedside glucose 150 mg/dL 70-105 Above high normal Bedside Gluco se [facility]) ID Date Data Source [id number] 03/31/2021 04:06:00 AM EDT [facility]) Name Value Range Interpretation Code Description Data Claribel rce(s) Supporting Document(s) bedside glucose 150 mg/dL 70-105 Above high normal Bedside Gluco se [facility] ([facility]) ID Date Data Source [id number] 03/31/2021 04:06:00 AM EDT [facility]) Name Value Range Interpretation Code Description Data Claribel rce(s) Supporting Document(s) bedside glucose 150 mg/dL 70-105 Above high normal Bedside Gluco se [facility]) ID Date Data Source [id number] 03/31/2021 03:17:00 AM EDT [facility]) Name Value Range Interpretation Code Description Data Claribel rce(s) Supporting Document(s) bedside glucose 164 mg/dL 70-105 Above high normal Bedside Gluco se [facility]) ID Date Data Source [id number] 03/31/2021 03:17:00 AM EDT [facility]) Name Value Range Interpretation Code Description Data Claribel rce(s) Supporting Document(s) bedside glucose 164 mg/dL 70-105 Above high normal Bedside Gluco se [facility]) ID Date Data Source [id number] 03/31/2021 03:17:00 AM EDT [facility]) Name Value Range Interpretation Code Description Data Claribel rce(s) Supporting Document(s) bedside glucose 164 mg/dL 70-105 Above high normal Bedside Gluco se [facility]) ID Date Data Source [id number] 03/31/2021 02:04:00 AM EDT [facility]) Name Value Range Interpretation Code Description Data Claribel rce(s) Supporting Document(s) bedside glucose 193 mg/dL 70-105 Above high normal Bedside Gluco se [facility]) ID Date Data Source [id number] 03/31/2021 02:04:00 AM EDT [facility] ([facility]) Name Value Range Interpretation Code Description Data Claribel rce(s) Supporting Document(s) bedside glucose 193 mg/dL 70-105 Above high normal Bedside Gluco se [facility] ([facility]) ID Date Data Source [id number] 03/31/2021 02:04:00 AM EDT [facility] ([facility]) Name Value Range Interpretation Code Description Data Claribel rce(s) Supporting Document(s) bedside glucose 193 mg/dL 70-105 Above high normal Bedside Gluco se [facility] ([facility]) ID Date Data Source [id number] 03/31/2021 01:04:00 AM EDT [facility] ([facility]) Name Value Range Interpretation Code Description Data Claribel rce(s) Supporting Document(s) bedside glucose 103 mg/dL 70-105 Bedside Glucose ATHE NA ([facility]) ID Date Data Source [id number] 03/31/2021 01:04:00 AM EDT [facility] ([facility]) Name Value Range Interpretation Code Description Data Claribel rce(s) Supporting Document(s) bedside glucose 103 mg/dL 70-105 Bedside Glucose ATHE NA ([facility]) ID Date Data Source [id number] 03/31/2021 01:04:00 AM EDT [facility] ([facility]) Name Value Range Interpretation Code Description Data Claribel rce(s) Supporting Document(s) bedside glucose 103 mg/dL 70-105 Bedside Glucose ATHE NA ([facility]) ID Date Data Source [id number] 03/31/2021 01:01:00 AM EDT [facility] [place]) Name Value Range Interpretation Code Description Data Claribel rce(s) Supporting Document(s) glucose, fasting 173 mg/dL 70-100 Above high normal Glucose, Fas ting [facility] ([facility]) blood urea nitrogen 9 mg/dL 7-18 Blood Urea Nitro gen [facility] ([facility]) creatinine for GFR 1.02 mg/dL 0.55-1.30 Creatinine for GF R [facility] ([facility]) glomerular filtration rate > 60.0 >60 Glomerula r Filtration Rate [facility] ([facility]) sodium level 139 mEq/L 136-145 Sodium Level [facility] ([facility]) potassium serum 3.9 mEq/L 3.5-5.1 Potassium Serum ATH NA ([facility]) chloride level 112 mEq/L 98-107 Above high normal Chloride Level [facility] ([facility]) carbon dioxide level 18 mEq/L 21-32 Below low normal Carbon Di oxide Level [facility] ([facility]) anion gap 9 mEq/L 8-16 Anion Gap [facility] ([facility]) calcium level 8.2 mg/dL 8.5-10.1 Below low normal Calcium Level AT [facility] ([facility]) ID Date Data Source [id number] 03/31/2021 01:01:00 AM EDT [facility]) Name Value Range Interpretation Code Description Data Claribel rce(s) Supporting Document(s) glucose, fasting 173 mg/dL 70-100 Above high normal Glucose, Fas ting [facility] ([facility]) blood urea nitrogen 9 mg/dL 7-18 Blood Urea Nitro gen [facility] ([facility]) creatinine for GFR 1.02 mg/dL 0.55-1.30 Creatinine for GF R [facility] ([facility]) glomerular filtration rate > 60.0 >60 Glomerula r Filtration Rate [facility] ([facility]) sodium level 139 mEq/L 136-145 Sodium Level [facility] ([facility]) potassium serum 3.9 mEq/L 3.5-5.1 Potassium Serum ATHE NA ([facility]) chloride level 112 mEq/L 98-107 Above high normal Chloride Level [facility] ([facility]) carbon dioxide level 18 mEq/L 21-32 Below low normal Carbon Di oxide Level [facility] ([facility]) anion gap 9 mEq/L 8-16 Anion Gap [facility] ([facility]) calcium level 8.2 mg/dL 8.5-10.1 Below low normal Calcium Level AT [facility]) ID Date Data Source [id number] 03/31/2021 01:01:00 AM EDT [facility]) Name Value Range Interpretation Code Description Data Claribel rce(s) Supporting Document(s) glucose, fasting 173 mg/dL 70-100 Above high normal Glucose, Fas ting [facility] ([facility]) blood urea nitrogen 9 mg/dL 7-18 Blood Urea Nitro gen [facility] ([facility]) creatinine for GFR 1.02 mg/dL 0.55-1.30 Creatinine for GF R [facility] ([facility]) glomerular filtration rate > 60.0 >60 Glomerula r Filtration Rate [facility] ([facility]) sodium level 139 mEq/L 136-145 Sodium Level [facility] ([facility]) potassium serum 3.9 mEq/L 3.5-5.1 [facility] chloride level 112 mEq/L 98-107 Above high normal Chloride Level [facility] ([facility]) carbon dioxide level 18 mEq/L 21-32 Below low normal Carbon Di oxide Level [facility] ([facility]) anion gap 9 mEq/L 8-16 Anion Gap [facility] ([facility]) calcium level 8.2 mg/dL 8.5-10.1 Below low normal Calcium Level AT [facility]) ID Date Data Source [id number] 03/31/2021 12:10:00 AM EDT [facility]) Name Value Range Interpretation Code Description Data Claribel rce(s) Supporting Document(s) bedside glucose 143 mg/dL 70-105 Above high normal Bedside Gluco se [facility] ([facility]) ID Date Data Source [id number] 03/31/2021 12:10:00 AM EDT [facility] ([facility]) Name Value Range Interpretation Code Description Data Claribel rce(s) Supporting Document(s) bedside glucose 143 mg/dL 70-105 Above high normal Bedside Gluco se [facility] ([facility]) ID Date Data Source [id number] 03/31/2021 12:10:00 AM EDT [facility] ([facility]) Name Value Range Interpretation Code Description Data Claribel rce(s) Supporting Document(s) bedside glucose 143 mg/dL 70-105 Above high normal Bedside Gluco se [facility] ([facility]) ID Date Data Source [id number] 03/30/2021 11:09:00 PM EDT [facility] ([facility]) Name Value Range Interpretation Code Description Data Claribel rce(s) Supporting Document(s) bedside glucose 155 mg/dL 70-105 Above high normal Bedside Gluco se [facility] ([facility]) ID Date Data Source [id number] 03/30/2021 11:09:00 PM EDT [facility] ([facility]) Name Value Range Interpretation Code Description Data Claribel rce(s) Supporting Document(s) bedside glucose 155 mg/dL 70-105 Above high normal Bedside Gluco se [facility] ([facility]) ID Date Data Source [id number] 03/30/2021 11:09:00 PM EDT [facility]) Name Value Range Interpretation Code Description Data Claribel rce(s) Supporting Document(s) bedside glucose 155 mg/dL 70-105 Above high normal Bedside Gluco se [facility]) ID Date Data Source [id number] 03/30/2021 10:03:00 PM EDT [facility] ([facility]) Name Value Range Interpretation Code Description Data Claribel rce(s) Supporting Document(s) bedside glucose 160 mg/dL 70-105 Above high normal Bedside Gluco se [facility] ([facility]) ID Date Data Source [id number] 03/30/2021 10:03:00 PM EDT [facility] ([facility]) Name Value Range Interpretation Code Description Data Claribel rce(s) Supporting Document(s) bedside glucose 160 mg/dL 70-105 Above high normal Bedside Gluco se [facility] ([facility]) ID Date Data Source [id number] 03/30/2021 10:03:00 PM EDT [facility]) Name Value Range Interpretation Code Description Data Claribel rce(s) Supporting Document(s) bedside glucose 160 mg/dL 70-105 Above high normal Bedside Gluco se [facility] ([facility]) ID Date Data Source [id number] 03/30/2021 09:10:00 PM EDT [facility] ([facility]) Name Value Range Interpretation Code Description Data Claribel rce(s) Supporting Document(s) magnesium level 1.8 mg/dL 1.8-2.4 Magnesium Level [facility]) ID Date Data Source [id number] 03/30/2021 09:10:00 PM EDT [facility] ([facility]) Name Value Range Interpretation Code Description Data Claribel rce(s) Supporting Document(s) glucose, fasting 178 mg/dL 70-100 Above high normal Glucose, Fas ting [facility] ([facility]) blood urea nitrogen 11 mg/dL 7-18 Blood Urea Nitro gen [facility] ([facility]) creatinine for GFR 1.10 mg/dL 0.55-1.30 Creatinine for GF R [facility] ([facility]) glomerular filtration rate > 60.0 >60 Glomerula r Filtration Rate [facility] ([facility]) sodium level 139 mEq/L 136-145 Sodium Level [facility] ([facility]) potassium serum 3.8 mEq/L 3.5-5.1 Potassium Serum ATHE NA ([facility]) chloride level 115 mEq/L 98-107 Above high normal Chloride Level [facility] ([facility]) carbon dioxide level 15 mEq/L 21-32 Below low normal Carbon Di oxide Level [facility] ([facility]) anion gap 9 mEq/L 8-16 Anion Gap [facility] ([facility]) calcium level 8.4 mg/dL 8.5-10.1 Below low normal Calcium Level AT [facility] ([facility]) ID Date Data Source [id number] 03/30/2021 09:10:00 PM EDT [facility]) Name Value Range Interpretation Code Description Data Claribel rce(s) Supporting Document(s) magnesium level 1.8 mg/dL 1.8-2.4 Magnesium Level [facility]) ID Date Data Source [id number] 03/30/2021 09:10:00 PM EDT [facility]) Name Value Range Interpretation Code Description Data Claribel rce(s) Supporting Document(s) glucose, fasting 178 mg/dL 70-100 Above high normal Glucose, Fas ting [facility] ([facility]) blood urea nitrogen 11 mg/dL 7-18 Blood Urea Nitro gen CYNDI ([facility]) glomerular filtration rate > 60.0 >60 Glomerula r Filtration Rate CYNDI ([facility]) creatinine for GFR 1.10 mg/dL 0.55-1.30 Creatinine for GF R CYNDI ([facility]) sodium level 139 mEq/L 136-145 Sodium Level CYNDI ([facility]) potassium serum 3.8 mEq/L 3.5-5.1 Potassium Serum ATHE NA ([facility]) chloride level 115 mEq/L 98-107 Above high normal Chloride Level [facility] ([facility]) carbon dioxide level 15 mEq/L 21-32 Below low normal Carbon Di oxide Level CYNDI ([facility]) anion gap 9 mEq/L 8-16 Anion Gap CY[facility] ([facility]) calcium level 8.4 mg/dL 8.5-10.1 Below low normal Calcium Level AT [facility] ([facility]) ID Date Data Source [id number] 03/30/2021 09:10:00 PM EDT CYNDI ([facility]) Name Value Range Interpretation Code Description Data Claribel rce(s) Supporting Document(s) magnesium level 1.8 mg/dL 1.8-2.4 Magnesium Level ATHE NA ([facility]) ID Date Data Source [id number] 03/30/2021 09:10:00 PM EDT [facility] ([facility]) Name Value Range Interpretation Code Description Data Claribel rce(s) Supporting Document(s) glucose, fasting 178 mg/dL 70-100 Above high normal Glucose, Fas ting CYNDI ([facility]) blood urea nitrogen 11 mg/dL 7-18 Blood Urea Nitro gen [facility] ([facility]) creatinine for GFR 1.10 mg/dL 0.55-1.30 Creatinine for GF R [facility] ([facility]) glomerular filtration rate > 60.0 >60 Glomerula r Filtration Rate CYNDI ([facility]) sodium level 139 mEq/L 136-145 Sodium Level CYNDI ([facility]) potassium serum 3.8 mEq/L 3.5-5.1 Potassium Serum ATHE NA ([facility]) chloride level 115 mEq/L 98-107 Above high normal Chloride Level [facility] ([facility]) carbon dioxide level 15 mEq/L 21-32 Below low normal Carbon Di oxide Level CYNDI ([facility]) anion gap 9 mEq/L 8-16 Anion Gap CY[facility]I ([facility]) calcium level 8.4 mg/dL 8.5-10.1 Below low normal Calcium Level AT [facility] ([facility]) ID Date Data Source [id number] 03/30/2021 09:09:00 PM EDT [facility]) Name Value Range Interpretation Code Description Data Claribel rce(s) Supporting Document(s) bedside glucose 180 mg/dL 70-105 Above high normal Bedside Gluco se [facility]) ID Date Data Source [id number] 03/30/2021 09:09:00 PM EDT [facility]) Name Value Range Interpretation Code Description Data Claribel rce(s) Supporting Document(s) bedside glucose 180 mg/dL 70-105 Above high normal Bedside Gluco se [facility]) ID Date Data Source [id number] 03/30/2021 09:09:00 PM EDT [facility]) Name Value Range Interpretation Code Description Data Claribel rce(s) Supporting Document(s) bedside glucose 180 mg/dL 70-105 Above high normal Bedside Gluco se [facility]) ID Date Data Source [id number] 03/30/2021 08:09:00 PM EDT [facility]) Name Value Range Interpretation Code Description Data Claribel rce(s) Supporting Document(s) bedside glucose 171 mg/dL 70-105 Above high normal Bedside Gluco se [facility]) ID Date Data Source [id number] 03/30/2021 08:09:00 PM EDT [facility]) Name Value Range Interpretation Code Description Data Claribel rce(s) Supporting Document(s) bedside glucose 171 mg/dL 70-105 Above high normal Bedside Gluco se [facility]) ID Date Data Source [id number] 03/30/2021 08:09:00 PM EDT [facility]) Name Value Range Interpretation Code Description Data Claribel rce(s) Supporting Document(s) bedside glucose 171 mg/dL 70-105 Above high normal Bedside Gluco se [facility] ([facility]) ID Date Data Source [id number] 03/30/2021 07:11:00 PM EDT [facility]) Name Value Range Interpretation Code Description Data Claribel rce(s) Supporting Document(s) bedside glucose 185 mg/dL 70-105 Above high normal Bedside Gluco se [facility] ([facility]) ID Date Data Source [id number] 03/30/2021 07:11:00 PM EDT [facility]) Name Value Range Interpretation Code Description Data Claribel rce(s) Supporting Document(s) bedside glucose 185 mg/dL 70-105 Above high normal Bedside Gluco se [facility]) ID Date Data Source [id number] 03/30/2021 07:11:00 PM EDT [facility]) Name Value Range Interpretation Code Description Data Claribel rce(s) Supporting Document(s) bedside glucose 185 mg/dL 70-105 Above high normal Bedside Gluco se [facility]) ID Date Data Source [id number] 03/30/2021 06:15:00 PM EDT [facility]) Name Value Range Interpretation Code Description Data Claribel rce(s) Supporting Document(s) bedside glucose 198 mg/dL 70-105 Above high normal Bedside Gluco se [facility]) ID Date Data Source [id number] 03/30/2021 06:15:00 PM EDT [facility]) Name Value Range Interpretation Code Description Data Claribel rce(s) Supporting Document(s) bedside glucose 198 mg/dL 70-105 Above high normal Bedside Gluco se [facility]) ID Date Data Source [id number] 03/30/2021 06:15:00 [facility] Name Value Range Interpretation Code Description Data Claribel rce(s) Supporting Document(s) bedside glucose 198 mg/dL 70-105 Above high normal Bedside Gluco se [facility] ([facility]) ID Date Data Source [id number] 03/30/2021 05:34:00 PM EDT [facility]) Name Value Range Interpretation Code Description Data Claribel rce(s) Supporting Document(s) bedside glucose 192 mg/dL 70-105 Above high normal Bedside Gluco se [facility] ([facility]) ID Date Data Source [id number] 03/30/2021 05:34:00 PM EDT [facility]) Name Value Range Interpretation Code Description Data Claribel rce(s) Supporting Document(s) bedside glucose 192 mg/dL 70-105 Above high normal Bedside Gluco se CYNDI ([facility]) ID Date Data Source [id number] 03/30/2021 05:34:00 PM EDT [facility]) Name Value Range Interpretation Code Description Data Claribel rce(s) Supporting Document(s) bedside glucose 192 mg/dL 70-105 Above high normal Bedside Gluco se CYNDI ([facility]) ID Date Data Source [id number] 03/30/2021 05:32:00 PM EDT [facility]) Name Value Range Interpretation Code Description Data Claribel rce(s) Supporting Document(s) magnesium level 1.9 mg/dL 1.8-2.4 [facility] ID Date Data Source [id number] 03/30/2021 05:32:00 PM EDT [facility]) Name Value Range Interpretation Code Description Data Claribel rce(s) Supporting Document(s) glucose, fasting 195 mg/dL 70-100 Above high normal Glucose, Fas ting [facility] ([facility]) blood urea nitrogen 12 mg/dL 7-18 Blood Urea Nitro gen CYNDI ([facility]) creatinine for GFR 1.09 mg/dL 0.55-1.30 Creatinine for GF R CYNDI ([facility]) glomerular filtration rate > 60.0 >60 Glomerula r Filtration Rate CYNDI ([facility]) sodium level 141 mEq/L 136-145 Sodium Level CYNDI ([facility]) potassium serum 3.9 mEq/L 3.5-5.1 Potassium Serum ATHE NA ([facility]) chloride level 115 mEq/L 98-107 Above high normal Chloride Level [facility] ([facility]) carbon dioxide level 16 mEq/L 21-32 Below low normal Carbon Di oxide Level CYNDI ([facility]) anion gap 10 mEq/L 8-16 Anion Gap CYNDI ([facility]) calcium level 8.2 mg/dL 8.5-10.1 Below low normal Calcium Level AT [facility] ([facility]) ID Date Data Source [id number] 03/30/2021 05:32:00 PM EDT [facility] ([facility]) Name Value Range Interpretation Code Description Data Claribel rce(s) Supporting Document(s) magnesium level 1.9 mg/dL 1.8-2.4 Magnesium Level ATHE NA ([facility]) ID Date Data Source [id number] 03/30/2021 05:32:00 PM EDT [facility]) Name Value Range Interpretation Code Description Data Claribel rce(s) Supporting Document(s) glucose, fasting 195 mg/dL 70-100 Above high normal Glucose, Fas ting [facility] ([facility]) blood urea nitrogen 12 mg/dL 7-18 Blood Urea Nitro gen [facility] ([facility]) glomerular filtration rate > 60.0 >60 Glomerula r Filtration Rate CYNDI ([facility]) creatinine for GFR 1.09 mg/dL 0.55-1.30 Creatinine for GF R CYNDI ([facility]) sodium level 141 mEq/L 136-145 Sodium Level CYNDI ([facility]) potassium serum 3.9 mEq/L 3.5-5.1 Potassium Serum ATHE NA ([facility]) chloride level 115 mEq/L 98-107 Above high normal Chloride Level [facility] ([facility]) carbon dioxide level 16 mEq/L 21-32 Below low normal Carbon Di oxide Level [facility] ([facility]) anion gap 10 mEq/L 8-16 Anion Gap [facility] ([facility]) calcium level 8.2 mg/dL 8.5-10.1 Below low normal Calcium Level AT [facility]) ID Date Data Source [id number] 03/30/2021 05:32:00 PM EDT [facility]) Name Value Range Interpretation Code Description Data Claribel rce(s) Supporting Document(s) magnesium level 1.9 mg/dL 1.8-2.4 [facility] ID Date Data Source [id number] 03/30/2021 05:32:00 PM EDT [facility]) Name Value Range Interpretation Code Description Data Claribel rce(s) Supporting Document(s) glucose, fasting 195 mg/dL 70-100 Above high normal Glucose, Fas ting CYNDI ([facility]) blood urea nitrogen 12 mg/dL 7-18 Blood Urea Nitro gen CYNDI ([facility]) creatinine for GFR 1.09 mg/dL 0.55-1.30 Creatinine for GF R CYNDI ([facility]) glomerular filtration rate > 60.0 >60 Glomerula r Filtration Rate CYNDI ([facility]) sodium level 141 mEq/L 136-145 Sodium Level CYNDI ([facility]) potassium serum 3.9 mEq/L 3.5-5.1 Potassium Serum ATHE NA ([facility]) chloride level 115 mEq/L 98-107 Above high normal Chloride Level CYNDI ([facility]) carbon dioxide level 16 mEq/L 21-32 Below low normal Carbon Di oxide Level [facility] ([facility]) anion gap 10 mEq/L 8-16 Anion Gap CYNDI ([facility]) calcium level 8.2 mg/dL 8.5-10.1 Below low normal Calcium Level AT [facility] ([facility]) ID Date Data Source [id number] 03/30/2021 04:31:00 PM EDT [facility] ([facility]) Name Value Range Interpretation Code Description Data Claribel rce(s) Supporting Document(s) bedside glucose 182 mg/dL 70-105 Above high normal Bedside Gluco se [facility]) ID Date Data Source [id number] 03/30/2021 04:31:00 PM EDT [facility]) Name Value Range Interpretation Code Description Data Claribel rce(s) Supporting Document(s) bedside glucose 182 mg/dL 70-105 Above high normal Bedside Gluco se [facility] ([facility]) ID Date Data Source [id number] 03/30/2021 04:31:00 PM EDT [facility]) Name Value Range Interpretation Code Description Data Claribel rce(s) Supporting Document(s) bedside glucose 182 mg/dL 70-105 Above high normal Bedside Gluco se [facility] ([facility]) ID Date Data Source [id number] 03/30/2021 03:07:00 PM EDT [facility]) Name Value Range Interpretation Code Description Data Claribel rce(s) Supporting Document(s) bedside glucose 207 mg/dL 70-105 Above high normal Bedside Gluco se [facility] ([facility]) ID Date Data Source [id number] 03/30/2021 03:07:00 PM EDT [facility]) Name Value Range Interpretation Code Description Data Claribel rce(s) Supporting Document(s) bedside glucose 207 mg/dL 70-105 Above high normal Bedside Gluco se [facility] ([facility]) ID Date Data Source [id number] 03/30/2021 03:07:00 PM EDT [facility]) Name Value Range Interpretation Code Description Data Claribel rce(s) Supporting Document(s) bedside glucose 207 mg/dL 70-105 Above high normal Bedside Gluco se [facility] ([facility]) ID Date Data Source [id number] 03/30/2021 02:06:00 PM EDT [facility]) Name Value Range Interpretation Code Description Data Claribel rce(s) Supporting Document(s) bedside glucose 128 mg/dL 70-105 Above high normal Bedside Gluco se [facility] ([facility]) ID Date Data Source [id number] 03/30/2021 02:06:00 PM EDT [facility]) Name Value Range Interpretation Code Description Data Claribel rce(s) Supporting Document(s) bedside glucose 128 mg/dL 70-105 Above high normal Bedside Gluco se [facility] ([facility]) ID Date Data Source [id number] 03/30/2021 02:06:00 PM EDT [facility]) Name Value Range Interpretation Code Description Data Claribel rce(s) Supporting Document(s) bedside glucose 128 mg/dL 70-105 Above high normal Bedside Gluco se [facility]) ID Date Data Source [id number] 03/30/2021 01:05:00 PM EDT [facility]) Name Value Range Interpretation Code Description Data Claribel rce(s) Supporting Document(s) bedside glucose 138 mg/dL 70-105 Above high normal Bedside Gluco se [facility] ([facility]) ID Date Data Source [id number] 03/30/2021 01:05:00 PM EDT [facility]) Name Value Range Interpretation Code Description Data Claribel rce(s) Supporting Document(s) bedside glucose 138 mg/dL 70-105 Above high normal Bedside Gluco se [facility]) ID Date Data Source [id number] 03/30/2021 01:05:00 PM EDT [facility]) Name Value Range Interpretation Code Description Data Claribel rce(s) Supporting Document(s) bedside glucose 138 mg/dL 70-105 Above high normal Bedside Gluco se [facility]) ID Date Data Source [id number] 03/30/2021 12:13:00 PM EDT [facility]) Name Value Range Interpretation Code Description Data Claribel rce(s) Supporting Document(s) osmolality serum 308 mOsm/kg 275-295 Above high normal Osmolality Serum [facility]) ID Date Data Source [id number] 03/30/2021 12:13:00 PM EDT [facility]) Name Value Range Interpretation Code Description Data Claribel rce(s) Supporting Document(s) phosphorus level 1.7 mg/dL 2.5-4.9 Below low normal Phosphorus Le karma [facility]) ID Date Data Source [id number] 03/30/2021 12:13:00 PM EDT [facility]) Name Value Range Interpretation Code Description Data Claribel rce(s) Supporting Document(s) glucose, fasting 118 mg/dL 70-100 Above high normal Glucose, Fas ting [facility] ([facility]) blood urea nitrogen 16 mg/dL 7-18 Blood Urea Nitro gen CYNDI ([facility]) creatinine for GFR 1.18 mg/dL 0.55-1.30 Creatinine for GF R CYNDI ([facility]) glomerular filtration rate >60 Below low normal Mariza merular Filtration Rate CYNDI ([facility]) sodium level 144 mEq/L 136-145 Sodium Level CY[facility]I ([facility]) potassium serum 4.4 mEq/L 3.5-5.1 Potassium Serum ATHE NA ([facility]) chloride level 117 mEq/L 98-107 Above high normal Chloride Level CY[facility]I ([facility]) carbon dioxide level 12 mEq/L 21-32 Below low normal Carbon Di oxide Level CYNDI ([facility]) anion gap 15 mEq/L 8-16 Anion Gap [facility] ([facility]) calcium level 9.1 mg/dL 8.5-10.1 Calcium Level [facility] ( [facility]) ID Date Data Source [id number] 03/30/2021 12:13:00 PM EDT [facility] ([facility]) Name Value Range Interpretation Code Description Data Claribel rce(s) Supporting Document(s) venous pH 7.171 units 7.330-7.430 Below low normal Venous pH [facility] ([facility]) venous partial pressure CO2 26.1 mmHg 38.0-50.0 Below low nor mal Venous Partial Pressure CO2 [facility]) venous partial pressure O2 64.5 mmHg 30.0-50.0 Above high nor mal Venous Partial Pressure O2 [facility]) venous total CO2 10.1 mEq/L 24.0-28.0 Below low normal Venous Total CO2 CYNDI ([facility]) venous HCO3 9.3 mEq/L 23.0-27.0 Below low normal Venous HCO3 [facility]) venous base excess -2.0-2.0 Below low normal Venous Base Excess [facility] ([facility]) venous standard HCO3 11.3 mEq/L Venous Standard HCO3 [facility] venous O2 saturation 90.9 % 60.0-80.0 Above high normal Venous O 2 Saturation [facility] ([facility]) ID Date Data Source [id number] 03/30/2021 12:13:00 PM EDT [facility]) Name Value Range Interpretation Code Description Data Claribel rce(s) Supporting Document(s) osmolality serum 308 mOsm/kg 275-295 Above high normal Osmolality Serum [facility] ([facility]) ID Date Data Source [id number] 03/30/2021 12:13:00 PM EDT CYNDI ([facility]) Name Value Range Interpretation Code Description Data Claribel rce(s) Supporting Document(s) phosphorus level 1.7 mg/dL 2.5-4.9 Below low normal Phosphorus Le karma CY[facility] ([facility]) ID Date Data Source [id number] 03/30/2021 12:13:00 PM EDT [facility] ([facility]) Name Value Range Interpretation Code Description Data Claribel rce(s) Supporting Document(s) glucose, fasting 118 mg/dL 70-100 Above high normal Glucose, Fas ting [facility] ([facility]) blood urea nitrogen 16 mg/dL 7-18 Blood Urea Nitro gen [facility] ([facility]) creatinine for GFR 1.18 mg/dL 0.55-1.30 Creatinine for GF R [facility] ([facility]) glomerular filtration rate >60 Below low normal Mariza merular Filtration Rate CYNDI ([facility]) sodium level 144 mEq/L 136-145 Sodium Level CYNDI ([facility]) potassium serum 4.4 mEq/L 3.5-5.1 Potassium Serum ATH NA ([facility]) chloride level 117 mEq/L 98-107 Above high normal Chloride Level [facility] ([facility]) carbon dioxide level 12 mEq/L 21-32 Below low normal Carbon Di oxide Level [facility] ([facility]) anion gap 15 mEq/L 8-16 Anion Gap [facility] ([facility]) calcium level 9.1 mg/dL 8.5-10.1 Calcium Level [facility] ( [facility]) ID Date Data Source [id number] 03/30/2021 12:13:00 PM EDT [facility]) Name Value Range Interpretation Code Description Data Claribel rce(s) Supporting Document(s) venous pH 7.171 units 7.330-7.430 Below low normal Venous pH [facility] ([facility]) venous partial pressure CO2 26.1 mmHg 38.0-50.0 Below low nor mal Venous Partial Pressure CO2 [facility] ([facility]) venous partial pressure O2 64.5 mmHg 30.0-50.0 Above high nor mal Venous Partial Pressure O2 [facility] ([facility]) venous total CO2 10.1 mEq/L 24.0-28.0 Below low normal Venous Total CO2 [facility] ([facility]) venous HCO3 9.3 mEq/L 23.0-27.0 Below low normal Venous HCO3 [facility] ([facility]) venous base excess -2.0-2.0 Below low normal Venous Base Excess [facility] ([facility]) venous standard HCO3 11.3 mEq/L Venous Standard HCO3 [facility] ([facility]) venous O2 saturation 90.9 % 60.0-80.0 Above high normal Venous O 2 Saturation [facility] ([facility]) ID Date Data Source [id number] 03/30/2021 12:13:00 PM EDT [facility] ([facility]) Name Value Range Interpretation Code Description Data Claribel rce(s) Supporting Document(s) osmolality serum 308 mOsm/kg 275-295 Above high normal Osmolality Serum [facility] ([facility]) ID Date Data Source [id number] 03/30/2021 12:13:00 PM EDT [facility]) Name Value Range Interpretation Code Description Data Claribel rce(s) Supporting Document(s) phosphorus level 1.7 mg/dL 2.5-4.9 Below low normal Phosphorus Le karma [facility] ([facility]) ID Date Data Source [id number] 03/30/2021 12:13:00 PM EDT [facility]) Name Value Range Interpretation Code Description Data Claribel rce(s) Supporting Document(s) glucose, fasting 118 mg/dL 70-100 Above high normal Glucose, Fas ting [facility] ([facility]) blood urea nitrogen 16 mg/dL 7-18 Blood Urea Nitro gen CYNDI ([facility]) creatinine for GFR 1.18 mg/dL 0.55-1.30 Creatinine for GF R [facility] ([facility]) glomerular filtration rate >60 Below low normal Mariza merular Filtration Rate [facility] ([facility]) sodium level 144 mEq/L 136-145 Sodium Level [facility] ([facility]) potassium serum 4.4 mEq/L 3.5-5.1 Potassium Serum [facility]) chloride level 117 mEq/L 98-107 Above high normal Chloride Level [facility] ([facility]) carbon dioxide level 12 mEq/L 21-32 Below low normal Carbon Di oxide Level [facility]ILD ([facility]) anion gap 15 mEq/L 8-16 Anion Gap [facility] ([facility]) calcium level 9.1 mg/dL 8.5-10.1 Calcium Level [facility] ( [facility]) ID Date Data Source [id number] 03/30/2021 12:13:00 PM EDT [facility]) Name Value Range Interpretation Code Description Data Claribel rce(s) Supporting Document(s) venous pH 7.171 units 7.330-7.430 Below low normal Venous pH [facility] ([facility]) venous partial pressure CO2 26.1 mmHg 38.0-50.0 Below low nor mal Venous Partial Pressure CO2 [facility] ([facility]) venous partial pressure O2 64.5 mmHg 30.0-50.0 Above high nor mal Venous Partial Pressure O2 [facility]) venous total CO2 10.1 mEq/L 24.0-28.0 Below low normal Venous Total CO2 [facility] ([facility]) venous HCO3 9.3 mEq/L 23.0-27.0 Below low normal Venous HCO3 [facility] ([facility]) venous base excess -2.0-2.0 Below low normal Venous Base Excess [facility]OT[facility] ([facility]) venous standard HCO3 11.3 mEq/L Venous Standard HCO3 [facility] ([facility]) venous O2 saturation 90.9 % 60.0-80.0 Above high normal Venous O 2 Saturation [facility] ([facility]) ID Date Data Source [id number] 03/30/2021 12:12:00 PM EDT [facility]) Name Value Range Interpretation Code Description Data Claribel rce(s) Supporting Document(s) bedside glucose 123 mg/dL 70-105 Above high normal Bedside Gluco se [facility]) ID Date Data Source [id number] 03/30/2021 12:12:00 PM EDT [facility]) Name Value Range Interpretation Code Description Data Claribel rce(s) Supporting Document(s) bedside glucose 123 mg/dL 70-105 Above high normal Bedside Gluco se [facility]) ID Date Data Source [id number] 03/30/2021 12:12:00 PM EDT [facility]) Name Value Range Interpretation Code Description Data Claribel rce(s) Supporting Document(s) bedside glucose 123 mg/dL 70-105 Above high normal Bedside Gluco se [facility] ([facility]) ID Date Data Source [id number] 03/30/2021 11:00:00 AM EDT [facility]) Name Value Range Interpretation Code Description Data Claribel rce(s) Supporting Document(s) bedside glucose 113 mg/dL 70-105 Above high normal Bedside Gluco se [facility]) ID Date Data Source [id number] 03/30/2021 11:00:00 AM EDT [facility]) Name Value Range Interpretation Code Description Data Claribel rce(s) Supporting Document(s) bedside glucose 113 mg/dL 70-105 Above high normal Bedside Gluco se [facility] ([facility]) ID Date Data Source [id number] 03/30/2021 11:00:00 AM EDT [facility]) Name Value Range Interpretation Code Description Data Claribel rce(s) Supporting Document(s) bedside glucose 113 mg/dL 70-105 Above high normal Bedside Gluco se [facility] ([facility]) ID Date Data Source [id number] 03/30/2021 09:57:00 AM EDT [facility]) Name Value Range Interpretation Code Description Data Claribel rce(s) Supporting Document(s) bedside glucose 161 mg/dL 70-105 Above high normal Bedside Gluco se [facility] ([facility]) ID Date Data Source [id number] 03/30/2021 09:57:00 AM EDT [facility]) Name Value Range Interpretation Code Description Data Claribel rce(s) Supporting Document(s) bedside glucose 161 mg/dL 70-105 Above high normal Bedside Gluco se [facility] ([facility]) ID Date Data Source [id number] 03/30/2021 09:57:00 AM EDT [facility]) Name Value Range Interpretation Code Description Data Claribel rce(s) Supporting Document(s) bedside glucose 161 mg/dL 70-105 Above high normal Bedside Gluco se [facility]) ID Date Data Source [id number] 03/30/2021 08:57:00 AM EDT [facility]) Name Value Range Interpretation Code Description Data Claribel rce(s) Supporting Document(s) bedside glucose 206 mg/dL 70-105 Above high normal Bedside Gluco se CYNDI ([facility]) ID Date Data Source [id number] 03/30/2021 08:57:00 AM EDT [facility]) Name Value Range Interpretation Code Description Data Claribel rce(s) Supporting Document(s) bedside glucose 206 mg/dL 70-105 Above high normal Bedside Gluco se CYNDI ([facility]) ID Date Data Source [id number] 03/30/2021 08:57:00 AM EDT [facility]) Name Value Range Interpretation Code Description Data Claribel rce(s) Supporting Document(s) bedside glucose 206 mg/dL 70-105 Above high normal Bedside Gluco se [facility] ([facility]) ID Date Data Source [id number] 03/30/2021 08:36:00 AM EDT [facility]) Name Value Range Interpretation Code Description Data Claribel rce(s) Supporting Document(s) osmolality serum 317 mOsm/kg 275-295 Above high normal Osmolality Serum [facility] ([facility]) ID Date Data Source [id number] 03/30/2021 08:36:00 AM EDT [facility]) Name Value Range Interpretation Code Description Data Claribel rce(s) Supporting Document(s) magnesium level 2.0 mg/dL 1.8-2.4 Magnesium Level ATHE NA ([facility]) ID Date Data Source [id number] 03/30/2021 08:36:00 AM EDT [facility]) Name Value Range Interpretation Code Description Data Claribel rce(s) Supporting Document(s) phosphorus level 1.4 mg/dL 2.5-4.9 Below low normal Phosphorus Le karma CYNDI ([facility]) ID Date Data Source [id number] 03/30/2021 08:36:00 AM EDT [facility]) Name Value Range Interpretation Code Description Data Claribel rce(s) Supporting Document(s) glucose, fasting 237 mg/dL 70-100 Above high normal Glucose, Fas ting CYNDI ([facility]) blood urea nitrogen 17 mg/dL 7-18 Blood Urea Nitro gen CYNDI ([facility]) creatinine for GFR 1.43 mg/dL 0.55-1.30 Above high normal Creatinine for GFR [facility] ([facility]) glomerular filtration rate >60 Below low normal Mariza merular Filtration Rate CYNDI ([facility]) sodium level 143 mEq/L 136-145 Sodium Level CYNDI ([facility]) potassium serum 4.0 mEq/L 3.5-5.1 Potassium Serum ATHE NA ([facility]) chloride level 115 mEq/L 98-107 Above high normal Chloride Level [facility]ILD ([facility]) carbon dioxide level 11 mEq/L 21-32 Below low normal Carbon Di oxide Level [facility]ILD ([facility]) anion gap 17 mEq/L 8-16 Above high normal Anion Gap CYNDI ([facility]) calcium level 9.2 mg/dL 8.5-10.1 Calcium Level [facility]ILD ( [facility]) ID Date Data Source [id number] 03/30/2021 08:36:00 AM EDT [facility] ([facility]) Name Value Range Interpretation Code Description Data Claribel rce(s) Supporting Document(s) osmolality serum 317 mOsm/kg 275-295 Above high normal Osmolality Serum [facility]) ID Date Data Source [id number] 03/30/2021 08:36:00 AM EDT [facility]) Name Value Range Interpretation Code Description Data Claribel rce(s) Supporting Document(s) magnesium level 2.0 mg/dL 1.8-2.4 Magnesium Level ATHE NA ([facility]) ID Date Data Source [id number] 03/30/2021 08:36:00 AM EDT [facility] ([facility]) Name Value Range Interpretation Code Description Data Claribel rce(s) Supporting Document(s) phosphorus level 1.4 mg/dL 2.5-4.9 Below low normal Phosphorus Le karma CYNDI ([facility]) ID Date Data Source [id number] 03/30/2021 08:36:00 AM EDT [facility] ([facility]) Name Value Range Interpretation Code Description Data Claribel rce(s) Supporting Document(s) glucose, fasting 237 mg/dL 70-100 Above high normal Glucose, Fas ting [facility] ([facility]) blood urea nitrogen 17 mg/dL 7-18 Blood Urea Nitro gen [facility] ([facility]) creatinine for GFR 1.43 mg/dL 0.55-1.30 Above high normal Creatinine for GFR [facility] ([facility]) glomerular filtration rate >60 Below low normal Mariza merular Filtration Rate CYNDI ([facility]) sodium level 143 mEq/L 136-145 Sodium Level CYNDI ([facility]) potassium serum 4.0 mEq/L 3.5-5.1 Potassium Serum ATHE NA ([facility]) chloride level 115 mEq/L 98-107 Above high normal Chloride Level [facility]ILD ([facility]) carbon dioxide level 11 mEq/L 21-32 Below low normal Carbon Di oxide Level [facility]ILD ([facility]) anion gap 17 mEq/L 8-16 Above high normal Anion Gap [facility]ILD ([facility]) calcium level 9.2 mg/dL 8.5-10.1 Calcium Level [facility]ILD ( [facility]) ID Date Data Source [id number] 03/30/2021 08:36:00 AM EDT [facility]) Name Value Range Interpretation Code Description Data Claribel rce(s) Supporting Document(s) osmolality serum 317 mOsm/kg 275-295 Above high normal Osmolality Serum [facility] ([facility]) ID Date Data Source [id number] 03/30/2021 08:36:00 AM EDT [facility] ([facility]) Name Value Range Interpretation Code Description Data Claribel rce(s) Supporting Document(s) magnesium level 2.0 mg/dL 1.8-2.4 Magnesium Level ATHE NA ([facility]) ID Date Data Source [id number] 03/30/2021 08:36:00 AM EDT CYNDI ([facility]) Name Value Range Interpretation Code Description Data Claribel rce(s) Supporting Document(s) phosphorus level 1.4 mg/dL 2.5-4.9 Below low normal Phosphorus Le karma CYNDI ([facility]) ID Date Data Source [id number] 03/30/2021 08:36:00 AM EDT [facility] ([facility]) Name Value Range Interpretation Code Description Data Claribel rce(s) Supporting Document(s) glucose, fasting 237 mg/dL 70-100 Above high normal Glucose, Fas ting CYNDI ([facility]) blood urea nitrogen 17 mg/dL 7-18 Blood Urea Nitro gen CYNDI ([facility]) creatinine for GFR 1.43 mg/dL 0.55-1.30 Above high normal Creatinine for GFR CYNID ([facility]) glomerular filtration rate >60 Below low normal Mariza merular Filtration Rate CYNDI ([facility]) sodium level 143 mEq/L 136-145 Sodium Level CYNDI ([facility]) potassium serum 4.0 mEq/L 3.5-5.1 Potassium Serum ATHE NA ([facility]) chloride level 115 mEq/L 98-107 Above high normal Chloride Level [facility]ILD ([facility]) carbon dioxide level 11 mEq/L 21-32 Below low normal Carbon Di oxide Level CYNDI ([facility]) anion gap 17 mEq/L 8-16 Above high normal Anion Gap CYNDI ([facility]) calcium level 9.2 mg/dL 8.5-10.1 Calcium Level CYNDI ( [facility]) ID Date Data Source [id number] 03/30/2021 07:48:00 AM EDT [facility]) Name Value Range Interpretation Code Description Data Claribel rce(s) Supporting Document(s) bedside glucose 327 mg/dL 70-105 Above high normal Bedside Gluco se [facility] ([facility]) ID Date Data Source [id number] 03/30/2021 07:48:00 AM EDT [facility]) Name Value Range Interpretation Code Description Data Claribel rce(s) Supporting Document(s) bedside glucose 327 mg/dL 70-105 Above high normal Bedside Gluco se [facility]) ID Date Data Source [id number] 03/30/2021 07:48:00 AM EDT [facility]) Name Value Range Interpretation Code Description Data Claribel rce(s) Supporting Document(s) bedside glucose 327 mg/dL 70-105 Above high normal Bedside Gluco se [facility] ([facility]) ID Date Data Source [id number] 03/30/2021 06:39:00 AM EDT [facility]) Name Value Range Interpretation Code Description Data Claribel rce(s) Supporting Document(s) bedside glucose 373 mg/dL 70-105 Above high normal Bedside Gluco se [facility]) ID Date Data Source [id number] 03/30/2021 06:39:00 AM EDT [facility]) Name Value Range Interpretation Code Description Data Claribel rce(s) Supporting Document(s) bedside glucose 373 mg/dL 70-105 Above high normal Bedside Gluco se [facility]) ID Date Data Source [id number] 03/30/2021 06:39:00 AM EDT [facility]) Name Value Range Interpretation Code Description Data Claribel rce(s) Supporting Document(s) bedside glucose 373 mg/dL 70-105 Above high normal Bedside Gluco se [facility] ([facility]) ID Date Data Source [id number] 03/30/2021 05:00:00 [facility] Name Value Range Interpretation Code Description Data Claribel rce(s) Supporting Document(s) bedside glucose 344 mg/dL 70-105 Above high normal Bedside Gluco se [facility] ([facility]) ID Date Data Source [id number] 03/30/2021 05:00:00 AM EDT [facility]) Name Value Range Interpretation Code Description Data Claribel rce(s) Supporting Document(s) bedside glucose 344 mg/dL 70-105 Above high normal Bedside Gluco se [facility] ([facility]) ID Date Data Source [id number] 03/30/2021 05:00:00 AM EDT [facility]) Name Value Range Interpretation Code Description Data Claribel rce(s) Supporting Document(s) bedside glucose 344 mg/dL 70-105 Above high normal Bedside Gluco se [facility]) ID Date Data Source [id number] 03/30/2021 03:53:00 AM EDT [facility]) Name Value Range Interpretation Code Description Data Claribel rce(s) Supporting Document(s) osmolality serum 322 mOsm/kg 275-295 Above high normal Osmolality Serum [facility]) ID Date Data Source [id number] 03/30/2021 03:53:00 AM EDT [facility]) Name Value Range Interpretation Code Description Data Claribel rce(s) Supporting Document(s) osmolality serum 322 mOsm/kg 275-295 Above high normal Osmolality Serum [facility] ([facility]) ID Date Data Source [id number] 03/30/2021 03:53:00 AM EDT [facility]) Name Value Range Interpretation Code Description Data Claribel rce(s) Supporting Document(s) lipase 63 U/L 73-393 Below low normal Lipase [facility]ILD ( [facility]) ID Date Data Source [id number] 03/30/2021 03:53:00 AM EDT [facility]) Name Value Range Interpretation Code Description Data Claribel rce(s) Supporting Document(s) phosphorus level 2.9 mg/dL 2.5-4.9 Phosphorus Level AT [facility]) ID Date Data Source [id number] 03/30/2021 03:53:00 AM EDT [facility] ([facility]) Name Value Range Interpretation Code Description Data Claribel rce(s) Supporting Document(s) glucose, fasting 332 mg/dL 70-100 Above high normal Glucose, Fas ting [facility] ([facility]) blood urea nitrogen 18 mg/dL 7-18 Blood Urea Nitro gen [facility] ([facility]) creatinine for GFR 1.19 mg/dL 0.55-1.30 Creatinine for GF R [facility]ILD ([facility]) glomerular filtration rate >60 Below low normal Mariza merular Filtration Rate CYNDI ([facility]) sodium level 140 mEq/L 136-145 Sodium Level CYNDI ([facility]) potassium serum 4.5 mEq/L 3.5-5.1 Potassium Serum ATH NA ([facility]) chloride level 112 mEq/L 98-107 Above high normal Chloride Level [facility]ILD ([facility]) carbon dioxide level 8 mEq/L 21-32 Below low normal Carbon Di oxide Level R[facility]ILD ([facility]) anion gap 20 mEq/L 8-16 Above high normal Anion Gap [facility]ILD ([facility]) calcium level 8.3 mg/dL 8.5-10.1 Below low normal [facility] ID Date Data Source [id number] 03/30/2021 03:53:00 AM EDT [facility] ([facility]) Name Value Range Interpretation Code Description Data Claribel rce(s) Supporting Document(s) Hemoglobin A1c/Hemoglobin.total in Blood 11.3 % Hemoglobin a1C CYNDI ([facility]) estimated average glucose 278 mg/dL 60-110 Above high norm al Estimated Average Glucose [facility] ([facility]) ID Date Data Source [id number] 03/30/2021 03:53:00 AM EDT [facility]) Name Value Range Interpretation Code Description Data Claribel rce(s) Supporting Document(s) venous pH 7.174 units 7.330-7.430 Below low normal Venous pH CYNDI ([facility]) venous partial pressure CO2 19.8 mmHg 38.0-50.0 Below low nor mal Venous Partial Pressure CO2 CYNDI ([facility]) venous partial pressure O2 139.4 mmHg 30.0-50.0 Above high nor mal Venous Partial Pressure O2 [facility]ILD ([facility]) venous total CO2 7.7 mEq/L 24.0-28.0 Below low normal Venous Total CO2 CYNDI ([facility]) venous HCO3 7.1 mEq/L 23.0-27.0 Below low normal Venous HCO3 CYNDI ([facility]) venous base excess -2.0-2.0 Below low normal Venous Base Excess CYNDI ([facility]) venous standard HCO3 10.4 mEq/L Venous Standard HCO3 CYNDI ([facility]) venous O2 saturation 98.8 % 60.0-80.0 Above high normal Venous O 2 Saturation CYNDI ([facility]) venous site unknown Venous Site [facility]I ([facility]) ID Date Data Source [id number] 03/30/2021 03:53:00 AM EDT [facility]) Name Value Range Interpretation Code Description Data Claribel rce(s) Supporting Document(s) osmolality serum 322 mOsm/kg 275-295 Above high normal Osmolality Serum [facility] ([facility]) ID Date Data Source [id number] 03/30/2021 03:53:00 AM EDT CYNDI ([facility]) Name Value Range Interpretation Code Description Data Claribel rce(s) Supporting Document(s) lipase 63 U/L 73-393 Below low normal Lipase [facility]OT[facility]ILD ( [facility]) ID Date Data Source [id number] 03/30/2021 03:53:00 AM EDT [facility] ([facility]) Name Value Range Interpretation Code Description Data Claribel rce(s) Supporting Document(s) phosphorus level 2.9 mg/dL 2.5-4.9 Phosphorus Level AT [facility]) ID Date Data Source [id number] 03/30/2021 03:53:00 AM EDT [facility]) Name Value Range Interpretation Code Description Data Claribel rce(s) Supporting Document(s) glucose, fasting 332 mg/dL 70-100 Above high normal Glucose, Fas ting [facility]ILD ([facility]) blood urea nitrogen 18 mg/dL 7-18 Blood Urea Nitro gen [facility]ILD ([facility]) creatinine for GFR 1.19 mg/dL 0.55-1.30 Creatinine for GF R [facility]ILD ([facility]) glomerular filtration rate >60 Below low normal Mariza merular Filtration Rate CYNDI ([facility]) sodium level 140 mEq/L 136-145 Sodium Level CYNDI ([facility]) potassium serum 4.5 mEq/L 3.5-5.1 Potassium Serum ATHE NA ([facility]) chloride level 112 mEq/L 98-107 Above high normal Chloride Level [facility]ILD ([facility]) carbon dioxide level 8 mEq/L 21-32 Below low normal Carbon Di oxide Level [facility]ILD ([facility]) anion gap 20 mEq/L 8-16 Above high normal Anion Gap CYNDI ([facility]) calcium level 8.3 mg/dL 8.5-10.1 Below low normal Calcium Level AT [facility]) ID Date Data Source [id number] 03/30/2021 03:53:00 AM EDT [facility]) Name Value Range Interpretation Code Description Data Claribel rce(s) Supporting Document(s) Hemoglobin A1c/Hemoglobin.total in Blood 11.3 % Hemoglobin a1C [facility] ([facility]) estimated average glucose 278 mg/dL 60-110 Above high norm al Estimated Average Glucose [facility]ILD ([facility]) ID Date Data Source [id number] 03/30/2021 03:53:00 AM EDT [facility] ([facility]) Name Value Range Interpretation Code Description Data Claribel rce(s) Supporting Document(s) venous pH 7.174 units 7.330-7.430 Below low normal Venous pH CYNDI ([facility]) venous partial pressure CO2 19.8 mmHg 38.0-50.0 Below low nor mal Venous Partial Pressure CO2 [facility] ([facility]) venous partial pressure O2 139.4 mmHg 30.0-50.0 Above high nor mal Venous Partial Pressure O2 CYNDI ([facility]) venous total CO2 7.7 mEq/L 24.0-28.0 Below low normal Venous Total CO2 CYNDI ([facility]) venous HCO3 7.1 mEq/L 23.0-27.0 Below low normal Venous HCO3 CY[facility]I ([facility]) venous base excess -2.0-2.0 Below low normal Venous Base Excess CYNDI ([facility]) venous standard HCO3 10.4 mEq/L Venous Standard HCO3 CYNDI ([facility]) venous O2 saturation 98.8 % 60.0-80.0 Above high normal Venous O 2 Saturation CYNDI ([facility]) venous site unknown Venous Site [facility]I ([facility]) ID Date Data Source [id number] 03/30/2021 03:53:00 AM EDT [facility] ([facility]) Name Value Range Interpretation Code Description Data Claribel rce(s) Supporting Document(s) lipase 63 U/L 73-393 Below low normal Lipase [facility]ILD ( [facility]) ID Date Data Source [id number] 03/30/2021 03:53:00 AM EDT [facility]) Name Value Range Interpretation Code Description Data Claribel rce(s) Supporting Document(s) phosphorus level 2.9 mg/dL 2.5-4.9 Phosphorus Level AT [facility]) ID Date Data Source [id number] 03/30/2021 03:53:00 AM EDT [facility]) Name Value Range Interpretation Code Description Data Claribel rce(s) Supporting Document(s) glucose, fasting 332 mg/dL 70-100 Above high normal Glucose, Fas ting [facility] ([facility]) blood urea nitrogen 18 mg/dL 7-18 Blood Urea Nitro gen [facility] ([facility]) creatinine for GFR 1.19 mg/dL 0.55-1.30 Creatinine for GF R [facility] ([facility]) glomerular filtration rate >60 Below low normal Mariza merular Filtration Rate CYNDI ([facility]) sodium level 140 mEq/L 136-145 Sodium Level CYNDI ([facility]) potassium serum 4.5 mEq/L 3.5-5.1 Potassium Serum ATH NA ([facility]) chloride level 112 mEq/L 98-107 Above high normal Chloride Level [facility]ILD ([facility]) carbon dioxide level 8 mEq/L 21-32 Below low normal Carbon Di oxide Level [facility]ILD ([facility]) anion gap 20 mEq/L 8-16 Above high normal Anion Gap [facility]ILD ([facility]) calcium level 8.3 mg/dL 8.5-10.1 Below low normal Calcium Level AT [facility]) ID Date Data Source [id number] 03/30/2021 03:53:00 AM EDT [facility] ([facility]) Name Value Range Interpretation Code Description Data Claribel rce(s) Supporting Document(s) Hemoglobin A1c/Hemoglobin.total in Blood 11.3 % Hemoglobin a1C CYNDI ([facility]) estimated average glucose 278 mg/dL 60-110 Above high norm al Estimated Average Glucose [facility]ILD ([facility]) ID Date Data Source [id number] 03/30/2021 03:53:00 AM EDT [facility]OT[facility] ([facility]) Name Value Range Interpretation Code Description Data Claribel rce(s) Supporting Document(s) venous pH 7.174 units 7.330-7.430 Below low normal Venous pH [facility]ILD ([facility]) venous partial pressure CO2 19.8 mmHg 38.0-50.0 Below low nor mal Venous Partial Pressure CO2 [facility] ([facility]) venous partial pressure O2 139.4 mmHg 30.0-50.0 Above high nor mal Venous Partial Pressure O2 [facility] ([facility]) venous total CO2 7.7 mEq/L 24.0-28.0 Below low normal Venous Total CO2 CYNDI ([facility]) venous HCO3 7.1 mEq/L 23.0-27.0 Below low normal Venous HCO3 CY[facility] ([facility]) venous base excess -2.0-2.0 Below low normal Venous Base Excess [facility] ([facility]) venous standard HCO3 10.4 mEq/L Venous Standard HCO3 CYNDI ([facility]) venous O2 saturation 98.8 % 60.0-80.0 Above high normal Venous O 2 Saturation CY[facility]I ([facility]) venous site unknown Venous Site CY[facility]I ([facility]) ID Date Data Source [id number] 03/30/2021 03:18:00 AM EDT [facility] ([facility]) Name Value Range Interpretation Code Description Data Claribel rce(s) Supporting Document(s) bedside glucose 292 mg/dL 70-105 Above high normal Bedside Gluco se CYNDI ([facility]) ID Date Data Source [id number] 03/30/2021 03:18:00 AM EDT CYNDI ([facility]) Name Value Range Interpretation Code Description Data Claribel rce(s) Supporting Document(s) bedside glucose 292 mg/dL 70-105 Above high normal Bedside Gluco se [facility] ([facility]) ID Date Data Source [id number] 03/30/2021 03:18:00 AM EDT CYNDI ([facility]) Name Value Range Interpretation Code Description Data Claribel rce(s) Supporting Document(s) bedside glucose 292 mg/dL 70-105 Above high normal Bedside Gluco se CYNDI ([facility]) ID Date Data Source [id number] 03/30/2021 12:18:00 AM EDT CYNDI ([facility]) Name Value Range Interpretation Code Description Data Claribel rce(s) Supporting Document(s) istat B-HCG < 5.0 Istat B-HCG [facility] ([facility]) ID Date Data Source [id number] 03/30/2021 12:18:00 AM EDT CYNDI ([facility]) Name Value Range Interpretation Code Description Data Claribel rce(s) Supporting Document(s) istat B-HCG < 5.0 Istat B-HCG [facility]I ([facility]) ID Date Data Source [id number] 03/30/2021 12:18:00 AM EDT CYNDI ([facility]) Name Value Range Interpretation Code Description Data Claribel rce(s) Supporting Document(s) istat B-HCG < 5.0 Istat B-HCG [facility] ([facility]) ID Date Data Source [id number] 03/30/2021 12:15:00 AM EDT [facility] ([facility]) Name Value Range Interpretation Code Description Data Claribel rce(s) Supporting Document(s) istat HCT 41.0 % 38.0-51.0 Istat HCT CYNDI ([facility]) istat glucose 317 mg/dL 70-105 Above high normal Istat Glucose A [facility] ([facility]) istat sodium 137 mEq/L 136-145 Istat Sodium CYNDI ([facility]) istat potassium 5.1 mEq/L 3.5-5.1 Istat Potassium ATHE NA ([facility]) istat Ca++ 5.3 mg/dL 4.5-5.3 Istat Ca++ CYNDI ([facility]) istat chloride 112 mEq/L 98-109 Above high normal Istat Chloride [facility] ([facility]) istat CO2 12.0 mm/L 23.0-27.0 Below low normal Istat CO2 CYNDI ( [facility]) istat BUN 27 mg/dL 8-26 Above high normal Istat BUN [facility] ([facility]) istat creatinine 1.0 mg/dL 0.6-1.3 Istat Creatinine AT [facility] ([facility]) ID Date Data Source [id number] 03/30/2021 12:15:00 AM EDT [facility]) Name Value Range Interpretation Code Description Data Claribel rce(s) Supporting Document(s) istat HCT 41.0 % 38.0-51.0 Istat HCT CYNDI ([facility]) istat glucose 317 mg/dL 70-105 Above high normal Istat Glucose A [facility] ([facility]) istat sodium 137 mEq/L 136-145 Istat Sodium [facility]NDI ([facility]) istat potassium 5.1 mEq/L 3.5-5.1 Istat Potassium ATHE NA ([facility]) istat Ca++ 5.3 mg/dL 4.5-5.3 Istat Ca++ CYNDI ([facility]) istat chloride 112 mEq/L 98-109 Above high normal Istat Chloride CYNDI ([facility]) istat CO2 12.0 mm/L 23.0-27.0 Below low normal Istat CO2 CYNDI ( [facility]) istat BUN 27 mg/dL 8-26 Above high normal Istat BUN [facility] ([facility]) istat creatinine 1.0 mg/dL 0.6-1.3 Istat Creatinine AT [facility]) ID Date Data Source [id number] 03/30/2021 12:15:00 AM EDT [facility] ([facility]) Name Value Range Interpretation Code Description Data Claribel rce(s) Supporting Document(s) istat HCT 41.0 % 38.0-51.0 Istat HCT CYNDI ([facility]) istat glucose 317 mg/dL 70-105 Above high normal Istat Glucose A THENA ([facility]) istat sodium 137 mEq/L 136-145 Istat Sodium [facility]I ([facility]) istat potassium 5.1 mEq/L 3.5-5.1 Istat Potassium ATHE NA ([facility]) istat Ca++ 5.3 mg/dL 4.5-5.3 Istat Ca++ CYNDI ([facility]) istat chloride 112 mEq/L 98-109 Above high normal Istat Chloride CY[facility]I ([facility]) istat CO2 12.0 mm/L 23.0-27.0 Below low normal Istat CO2 CYNDI ( [facility]) istat BUN 27 mg/dL 8-26 Above high normal Istat BUN [facility]I ([facility]) istat creatinine 1.0 mg/dL 0.6-1.3 Istat Creatinine AT [facility]) ID Date Data Source [id number] 03/29/2021 11:54:00 PM EDT CYNDI ([facility]) Name Value Range Interpretation Code Description Data Claribel rce(s) Supporting Document(s) appearance, urine rfx clear clear Appearance, Ur ine Rfx [facility] ([facility]) color, urine rfx yellow yellow Color, Urine Rfx AT [facility] ([facility]) pH,urine rfx 6.0 units 5.0-9.0 pH,urine Rfx CYNDI ([facility]) specific gravity ur auto rfx 1.002-1.035 Specif ic [place] Ur Auto Rfx [facility] ([facility]) protein, urine auto rfx 3+ negative Above high normal Prote in, Urine Auto Rfx [facility] ([facility]) glucose, urine (UA) auto rfx 3+ negative Above high n ormal Glucose, Urine (UA) Auto Rfx [facility] ([facility]) ketone, urine auto rfx 2+ negative Above high normal Ketone , Urine Auto Rfx [facility] ([facility]) urobilinogen, urine auto rfx 0.2 mg/dL 0.0-2.0 Urobili nogen, Urine Auto Rfx [facility] ([facility]) bilirubin, urine auto rfx negative negative Bilirubin, Urine Auto Rfx [facility] ([facility]) nitrite, urine auto rfx negative negative Nitrite, Uri ne Auto Rfx [facility] ([facility]) leukocyte esterase ur auto rfx negative negative Leukocyte Esterase Ur Auto Rfx [facility] ([facility]) blood, urine blood rfx 1+ negative Above high normal Blood, Urine Blood Rfx [facility] ([facility]) WBC, urine auto rfx 1 /hpf 0-3 WBC, Urine Auto Rfx [facility] ([facility]) RBC, urine auto rfx 3 /hpf 0-3 RBC, Urine Auto Rfx [facility] ([facility]) bacteria, urine auto rfx negative negative Bacteria, U rine Auto Rfx [facility] ([facility]) squam epithelial cell ur aurfx 0 /hpf 0-6 Squam Epithelial Cell Ur Aurfx [facility] ([facility]) mucus, urine rfx small negative Mucus, Urine Rfx AT [facility] ([facility]) hyaline cast, urine auto rfx 8 /lpf 0-1 Hyaline Cast, Urine Auto Rfx CYNDI ([facility]) ID Date Data Source [id number] 03/29/2021 11:54:00 PM EDT CYNDI ([facility]) Name Value Range Interpretation Code Description Data Claribel rce(s) Supporting Document(s) acetone/ketone > 46.00 <2.81 Above high normal Acetone/ketone [facility] ([facility]) ID Date Data Source [id number] 03/29/2021 11:54:00 PM EDT [facility] ([facility]) Name Value Range Interpretation Code Description Data Claribel rce(s) Supporting Document(s) white blood count 5.8 10 4.0-10.0 White Blood Count CYNDI ([facility]) red blood count 4.70 10 4.00-5.40 Red Blood Count [facility]) hemoglobin 13.8 g/dL 12.0-15.5 Hemoglobin CYNDI ([facility]) hematocrit 42.5 % 36.0-47.0 Hematocrit CY[facility] ([facility]) mean corpuscular volume 90.4 fL 80.0-96.0 Mean Corpusc ular Volume CY[facility]I ([facility]) mean corpuscular hemoglobin 29.4 pg 27.0-33.0 Mean Cor puscular Hemoglobin CY[facility]I ([facility]) mean corpuscular HGB conc 32.5 g/dL 32.0-36.5 Mean Corpu scular HGB Conc CYNDI ([facility]) red cell distribution width 12.0 % 11.5-14.5 Red Cell Distribution Width [facility] ([facility]) platelet count, automated 295 10 150-450 Platelet C ount, Automated CY[facility]I ([facility]) neutrophils % 80.7 % 36.0-66.0 Above high normal Neutrophils % A THENA ([facility]) lymph % 14.0 % 24.0-44.0 Below low normal Lymph % CYNDI ( [facility]) mono % 4.3 % 2.0-8.0 [place] % CYNDI ([facility]) eos % 0.0 % 0.0-3.0 Eos % CY[facility]I ([facility]) baso % 0.3 % 0.0-1.0 Baso % CY[facility]I ([facility]) immature granulocyte % 0.7 % 0-3.0 Immature Gran ulocyte % CYNDI ([facility]) nucleated red blood cell % 0.0 % 0-0 Nucleated Red Blood Cell % CYNDI ([facility]) neutrophils # 4.7 10 1.5-8.5 Neutrophils # CYNDI ( [facility]) lymph # 0.8 10 1.5-5.0 Below low normal Lymph # CYNDI ( [facility]) mono # 0.3 10 0.0-0.8 [place] # CYNDI ([facility]) eos # 0.0 10 0.0-0.5 Eos # [facility]I ([facility]) baso # 0.0 10 0.0-0.2 Baso # CYNDI ([facility]) ID Date Data Source [id number] 03/29/2021 11:54:00 PM EDT [facility] ([facility]) Name Value Range Interpretation Code Description Data Claribel rce(s) Supporting Document(s) venous pH 7.148 units 7.330-7.430 Below low normal Venous pH CYNDI ([facility]) venous partial pressure CO2 26.3 mmHg 38.0-50.0 Below low nor mal Venous Partial Pressure CO2 CYNDI ([facility]) venous partial pressure O2 43.7 mmHg 30.0-50.0 Venous Pa rtial Pressure O2 CYNDI ([facility]) venous total CO2 9.7 mEq/L 24.0-28.0 Below low normal Venous Total CO2 CY[facility]I ([facility]) venous HCO3 8.9 mEq/L 23.0-27.0 Below low normal Venous HCO3 CY[facility] ([facility]) venous base excess -2.0-2.0 Below low normal Venous Base Excess CY[facility]I ([facility]) venous standard HCO3 10.8 mEq/L Venous Standard HCO3 CYNDI ([facility]) venous O2 saturation 77.5 % 60.0-80.0 Venous O2 Satur ation CYNDI ([facility]) ID Date Data Source [id number] 03/29/2021 11:54:00 PM EDT CYNDI ([facility]) Name Value Range Interpretation Code Description Data Claribel rce(s) Supporting Document(s) acetone/ketone > 46.00 <2.81 Above high normal Acetone/ketone CYNDI ([facility]) ID Date Data Source [id number] 03/29/2021 11:54:00 PM EDT CYNDI ([facility]) Name Value Range Interpretation Code Description Data Claribel rce(s) Supporting Document(s) white blood count 5.8 10 4.0-10.0 White Blood Count CYNDI ([facility]) red blood count 4.70 10 4.00-5.40 Red Blood Count ATHE ([facility]) hemoglobin 13.8 g/dL 12.0-15.5 Hemoglobin CYNDI ([facility]) mean corpuscular volume 90.4 fL 80.0-96.0 Mean Corpusc ular Volume CYNDI ([facility]) hematocrit 42.5 % 36.0-47.0 Hematocrit CYNDI ([facility]) mean corpuscular hemoglobin 29.4 pg 27.0-33.0 Mean Cor puscular Hemoglobin CYNDI ([facility]) mean corpuscular HGB conc 32.5 g/dL 32.0-36.5 Mean Corpu scular HGB Conc CYNDI ([facility]) red cell distribution width 12.0 % 11.5-14.5 Red Cell Distribution Width CYNDI ([facility]) platelet count, automated 295 10 150-450 Platelet C ount, Automated CYNDI ([facility]) neutrophils % 80.7 % 36.0-66.0 Above high normal Neutrophils % A THENA ([facility]) lymph % 14.0 % 24.0-44.0 Below low normal Lymph % CYNDI ( [facility]) eos % 0.0 % 0.0-3.0 Eos % CY[facility]I ([facility]) mono % 4.3 % 2.0-8.0 [place] % CYNDI ([facility]) baso % 0.3 % 0.0-1.0 Baso % CYNDI ([facility]) immature granulocyte % 0.7 % 0-3.0 Immature Gran ulocyte % CYNDI ([facility]) nucleated red blood cell % 0.0 % 0-0 Nucleated Red Blood Cell % CYNDI ([facility]) neutrophils # 4.7 10 1.5-8.5 Neutrophils # CYNDI ( [facility]) lymph # 0.8 10 1.5-5.0 Below low normal Lymph # CYNDI ( [facility]) mono # 0.3 10 0.0-0.8 [place] # CYNDI ([facility]) eos # 0.0 10 0.0-0.5 Eos # CY[facility]I ([facility]) baso # 0.0 10 0.0-0.2 Baso # CYNDI ([facility]) ID Date Data Source [id number] 03/29/2021 11:54:00 PM EDT [facility] ([facility]) Name Value Range Interpretation Code Description Data Claribel rce(s) Supporting Document(s) venous pH 7.148 units 7.330-7.430 Below low normal Venous pH CYNDI ([facility]) venous partial pressure CO2 26.3 mmHg 38.0-50.0 Below low nor mal Venous Partial Pressure CO2 CYNDI ([facility]) venous partial pressure O2 43.7 mmHg 30.0-50.0 Venous Pa rtial Pressure O2 CYNDI ([facility]) venous total CO2 9.7 mEq/L 24.0-28.0 Below low normal Venous Total CO2 CY[facility] ([facility]) venous base excess -2.0-2.0 Below low normal Venous Base Excess CY[facility]I ([facility]) venous HCO3 8.9 mEq/L 23.0-27.0 Below low normal Venous HCO3 CY[facility]I ([facility]) venous standard HCO3 10.8 mEq/L Venous Standard HCO3 [facility] ([facility]) venous O2 saturation 77.5 % 60.0-80.0 Venous O2 Satur ation CYNDI ([facility]) ID Date Data Source [id number] 03/29/2021 11:54:00 PM EDT [facility] ([facility]) Name Value Range Interpretation Code Description Data Claribel rce(s) Supporting Document(s) appearance, urine rfx clear clear Appearance, Ur ine Rfx [facility] ([facility]) color, urine rfx yellow yellow Color, Urine Rfx AT [place] ([facility]) pH,urine rfx 6.0 units 5.0-9.0 pH,urine Rfx [facility] ([facility]) specific gravity ur auto rfx 1.002-1.035 Specif ic [place] Ur Auto Rfx [facility] ([facility]) protein, urine auto rfx 3+ negative Above high normal Prote in, Urine Auto Rfx [facility] ([facility]) glucose, urine (UA) auto rfx 3+ negative Above high n ormal Glucose, Urine (UA) Auto Rfx [facility] ([facility]) ketone, urine auto rfx 2+ negative Above high normal Ketone , Urine Auto Rfx [facility] ([facility]) urobilinogen, urine auto rfx 0.2 mg/dL 0.0-2.0 Urobili nogen, Urine Auto Rfx [facility]NDI ([facility]) bilirubin, urine auto rfx negative negative Bilirubin, Urine Auto Rfx [facility] ([facility]) nitrite, urine auto rfx negative negative Nitrite, Uri ne Auto Rfx [facility] ([facility]) leukocyte esterase ur auto rfx negative negative Leukocyte Esterase Ur Auto Rfx [facility] ([facility]) blood, urine blood rfx 1+ negative Above high normal Blood, Urine Blood Rfx [facility] ([facility]) WBC, urine auto rfx 1 /hpf 0-3 WBC, Urine Auto Rfx [facility]I ([facility]) RBC, urine auto rfx 3 /hpf 0-3 RBC, Urine Auto Rfx CYNID ([facility]) bacteria, urine auto rfx negative negative Bacteria, U rine Auto Rfx [facility] ([facility]) squam epithelial cell ur aurfx 0 /hpf 0-6 Squam Epithelial Cell Ur Aurfx [facility]I ([facility]) mucus, urine rfx small negative Mucus, Urine Rfx AT [facility] ([facility]) hyaline cast, urine auto rfx 8 /lpf 0-1 Hyaline Cast, Urine Auto Rfx CYNDI ([facility]) ID Date Data Source [id number] 03/29/2021 11:54:00 PM EDT [facility] ([facility]) Name Value Range Interpretation Code Description Data Claribel rce(s) Supporting Document(s) acetone/ketone > 46.00 <2.81 Above high normal Acetone/ketone [facility] ([facility]) ID Date Data Source [id number] 03/29/2021 11:54:00 PM EDT [facility] ([facility]) Name Value Range Interpretation Code Description Data Claribel rce(s) Supporting Document(s) white blood count 5.8 10 4.0-10.0 White Blood Count CYNDI ([facility]) red blood count 4.70 10 4.00-5.40 Red Blood Count ATHE ([facility]) hemoglobin 13.8 g/dL 12.0-15.5 Hemoglobin CY[facility]I ([facility]) hematocrit 42.5 % 36.0-47.0 Hematocrit CY[facility] ([facility]) mean corpuscular volume 90.4 fL 80.0-96.0 Mean Corpusc ular Volume [facility]I ([facility]) mean corpuscular hemoglobin 29.4 pg 27.0-33.0 Mean Cor puscular Hemoglobin CY[facility]I ([facility]) mean corpuscular HGB conc 32.5 g/dL 32.0-36.5 Mean Corpu scular HGB Conc CYNDI ([facility]) red cell distribution width 12.0 % 11.5-14.5 Red Cell Distribution Width [facility] ([facility]) platelet count, automated 295 10 150-450 Platelet C ount, Automated CY[facility] ([facility]) neutrophils % 80.7 % 36.0-66.0 Above high normal Neutrophils % A THENA ([facility]) lymph % 14.0 % 24.0-44.0 Below low normal Lymph % CYNDI ( [facility]) mono % 4.3 % 2.0-8.0 [place] % CY[facility]I ([facility]) eos % 0.0 % 0.0-3.0 Eos % CYNDI ([facility]) baso % 0.3 % 0.0-1.0 Baso % [facility] ([facility]) immature granulocyte % 0.7 % 0-3.0 Immature Gran ulocyte % [facility] ([facility]) nucleated red blood cell % 0.0 % 0-0 Nucleated Red Blood Cell % [facility] ([facility]) lymph # 0.8 10 1.5-5.0 Below low normal Lymph # [facility] ( [facility]) neutrophils # 4.7 10 1.5-8.5 Neutrophils # CYNDI ( [facility]) mono # 0.3 10 0.0-0.8 [place] # CYNDI ([facility]) eos # 0.0 10 0.0-0.5 Eos # CY[facility]I ([facility]) baso # 0.0 10 0.0-0.2 Baso # [facility] ([facility]) ID Date Data Source [id number] 03/29/2021 11:54:00 PM EDT [facility] ([facility]) Name Value Range Interpretation Code Description Data Claribel rce(s) Supporting Document(s) venous pH 7.148 units 7.330-7.430 Below low normal Venous pH CY[facility]I ([facility]) venous partial pressure CO2 26.3 mmHg 38.0-50.0 Below low nor mal Venous Partial Pressure CO2 CY[facility]I ([facility]) venous partial pressure O2 43.7 mmHg 30.0-50.0 Venous Pa rtial Pressure O2 [facility] ([facility]) venous total CO2 9.7 mEq/L 24.0-28.0 Below low normal Venous Total CO2 [facility] ([facility]) venous HCO3 8.9 mEq/L 23.0-27.0 Below low normal Venous HCO3 [facility] ([facility]) venous base excess -2.0-2.0 Below low normal Venous Base Excess [facility] ([facility]) venous standard HCO3 10.8 mEq/L Venous Standard HCO3 [facility] ([facility]) venous O2 saturation 77.5 % 60.0-80.0 Venous O2 Satur ation [facility] ([facility]) ID Date Data Source [id number] 03/29/2021 11:54:00 PM EDT [facility] ([facility]) Name Value Range Interpretation Code Description Data Claribel rce(s) Supporting Document(s) color, urine rfx yellow yellow Color, Urine Rfx AT [facility] ([facility]) appearance, urine rfx clear clear Appearance, Ur ine Rfx [facility] ([facility]) pH,urine rfx 6.0 units 5.0-9.0 pH,urine Rfx [facility] ([facility]) specific gravity ur auto rfx 1.002-1.035 Specif ic [place] Ur Auto Rfx [facility] ([facility]) protein, urine auto rfx 3+ negative Above high normal Prote in, Urine Auto Rfx [facility] ([facility]) glucose, urine (UA) auto rfx 3+ negative Above high n ormal Glucose, Urine (UA) Auto Rfx [facility] ([facility]) ketone, urine auto rfx 2+ negative Above high normal Ketone , Urine Auto Rfx [facility] ([facility]) bilirubin, urine auto rfx negative negative Bilirubin, Urine Auto Rfx [facility] ([facility]) urobilinogen, urine auto rfx 0.2 mg/dL 0.0-2.0 Urobili nogen, Urine Auto Rfx [facility] ([facility]) nitrite, urine auto rfx negative negative Nitrite, Uri ne Auto Rfx [facility] ([facility]) leukocyte esterase ur auto rfx negative negative Leukocyte Esterase Ur Auto Rfx [facility] ([facility]) blood, urine blood rfx 1+ negative Above high normal Blood, Urine Blood Rfx [facility] ([facility]) WBC, urine auto rfx 1 /hpf 0-3 WBC, Urine Auto Rfx [facility] ([facility]) RBC, urine auto rfx 3 /hpf 0-3 RBC, Urine Auto Rfx [facility] ([facility]) bacteria, urine auto rfx negative negative Bacteria, U rine Auto Rfx [facility] ([facility]) squam epithelial cell ur aurfx 0 /hpf 0-6 Squam Epithelial Cell Ur Aurfx [facility] ([facility]) mucus, urine rfx small negative Mucus, Urine Rfx AT [facility]) hyaline cast, urine auto rfx 8 /lpf 0-1 Hyaline Cast, Urine Auto Rfx [facility] ([facility]) ID Date Data Source [id number] 03/29/2021 09:58:00 PM EDT [facility]) Name Value Range Interpretation Code Description Data Claribel rce(s) Supporting Document(s) ID Date Data Source [id number] 03/29/2021 09:58:00 PM EDT [facility] ([facility]) Name Value Range Interpretation Code Description Data Claribel rce(s) Supporting Document(s) ID Date Data Source [id number] 03/29/2021 09:58:00 PM EDT [facility] Name Value Range Interpretation Code Description Data Claribel rce(s) Supporting Document(s) SARS-CoV-2 (COVID 19) NEGATIVE - SARS-CoV-2 (COVID19) [facility] This lab was ordered by [facility] a nd reported by [facility]. ID Date Data Source [id number] 03/29/2021 09:58:00 PM EDT [facility]) Name Value Range Interpretation Code Description Data Claribel rce(s) Supporting Document(s) ID Date Data Source [id number] 03/26/2021 12:00:00 AM EDT [facility] Name Value Range Interpretation Code Description Data Claribel rce(s) Supporting Document(s) SARS-CoV2 Rapid Antigen Negative [facility] This lab was ordered by [facility] and reported by [facility]. ID Date Data Source [id number] 02/20/2021 01:30:18 PM EDT [facility] Name Value Range Interpretation Code Description Data Claribel rce(s) Supporting Document(s) Progress Note [facility] [id number] lbm [file] respiratory care specialist+[id number] [file] ID Date Data Source [id number] 02/20/2021 01:30:12 PM EDT [facility] Name Value Range Interpretation Code Description Data Claribel rce(s) Supporting Document(s) Progress Note [facility] [id number] lbm [file] [id number]== ID Date Data Source [id number] 12/24/2020 12:00:00 AM EST [facility] Name Value Range Interpretation Code Description Data Claribel rce(s) Supporting Document(s) SARS coronavirus 2 RNA [Presence] in Res piratory specimen by ANDREE with probe detection NEGATIVE [facility] This lab was ordered by [facility] and reported by [employer] ID Date Data Source [id number] 12/13/2020 09:35:00 AM EST CYNDI ([facility]) Name Value Range Interpretation Code Description Data Claribel rce(s) Supporting Document(s) glucose, fasting 270 mg/dL 70-100 Above high normal Glucose, Fas ting [facility] ([facility]) blood urea nitrogen 13 mg/dL 7-18 Blood Urea Nitro gen [facility] ([facility]) creatinine for GFR 1.13 mg/dL 0.55-1.30 Creatinine for GF R [facility] ([facility]) glomerular filtration rate >60 Below low normal Mariza merular Filtration Rate [facility] ([facility]) sodium level 140 mEq/L 136-145 Sodium Level [facility] ([facility]) potassium serum 4.0 mEq/L 3.5-5.1 Potassium Serum ATHE NA ([facility]) chloride level 111 mEq/L 98-107 Above high normal Chloride Level [facility] ([facility]) carbon dioxide level 19 mEq/L 21-32 Below low normal Carbon Di oxide Level [facility] ([facility]) anion gap 10 mEq/L 8-16 Anion Gap [facility] ([facility]) calcium level 9.4 mg/dL 8.5-10.1 Calcium Level [facility] ( [facility]) ID Date Data Source [id number] 12/13/2020 09:35:00 AM EST [facility] ([facility]) Name Value Range Interpretation Code Description Data Claribel rce(s) Supporting Document(s) white blood count 3.4 10 4.0-10.0 Below low normal White Blood Count [facility] ([facility]) red blood count 4.04 10 4.00-5.40 Red Blood Count ATHE NA ([facility]) hemoglobin 11.8 g/dL 12.0-15.5 Below low normal Hemoglobin [facility]I ( [facility]) hematocrit 35.7 % 36.0-47.0 Below low normal Hematocrit CY[facility]I ( [facility]) mean corpuscular volume 88.4 fL 80.0-96.0 Mean Corpusc ular Volume CY[facility]I ([facility]) mean corpuscular hemoglobin 29.2 pg 27.0-33.0 Mean Cor puscular Hemoglobin [facility]I ([facility]) mean corpuscular HGB conc 33.1 g/dL 32.0-36.5 Mean Corpu scular HGB Conc [facility] ([facility]) red cell distribution width 13.2 % 11.5-14.5 Red Cell Distribution Width [facility] ([facility]) platelet count, automated 162 10 150-450 Platelet C ount, Automated [facility] ([facility]) nucleated red blood cell % 0.0 % 0-0 Nucleated Red Blood Cell % [facility] ([facility]) ID Date Data Source [id number] 12/13/2020 09:35:00 AM EST [facility] ([facility]) Name Value Range Interpretation Code Description Data Claribel rce(s) Supporting Document(s) glucose, fasting 270 mg/dL 70-100 Above high normal Glucose, Fas ting [facility] ([facility]) blood urea nitrogen 13 mg/dL 7-18 Blood Urea Nitro gen [facility] ([facility]) creatinine for GFR 1.13 mg/dL 0.55-1.30 Creatinine for GF R [facility]I ([facility]) glomerular filtration rate >60 Below low normal Mariza merular Filtration Rate CY[facility]I ([facility]) sodium level 140 mEq/L 136-145 Sodium Level [facility] ([facility]) potassium serum 4.0 mEq/L 3.5-5.1 Potassium Serum ATHE NA ([facility]) chloride level 111 mEq/L 98-107 Above high normal Chloride Level [facility] ([facility]) carbon dioxide level 19 mEq/L 21-32 Below low normal Carbon Di oxide Level CY[facility]I ([facility]) anion gap 10 mEq/L 8-16 Anion Gap [facility] ([facility]) calcium level 9.4 mg/dL 8.5-10.1 Calcium Level [facility] ( [facility]) ID Date Data Source [id number] 12/13/2020 09:35:00 AM EST [facility] ([facility]) Name Value Range Interpretation Code Description Data Claribel rce(s) Supporting Document(s) white blood count 3.4 10 4.0-10.0 Below low normal White Blood Count [facility] ([facility]) red blood count 4.04 10 4.00-5.40 Red Blood Count ATHE NA ([facility]) hemoglobin 11.8 g/dL 12.0-15.5 Below low normal Hemoglobin CYNDI ( [facility]) hematocrit 35.7 % 36.0-47.0 Below low normal Hematocrit [facility]I ( [facility]) mean corpuscular volume 88.4 fL 80.0-96.0 Mean Corpusc ular Volume [facility]I ([facility]) mean corpuscular hemoglobin 29.2 pg 27.0-33.0 Mean Cor puscular Hemoglobin [facility] ([facility]) mean corpuscular HGB conc 33.1 g/dL 32.0-36.5 Mean Corpu scular HGB Conc [facility]I ([facility]) red cell distribution width 13.2 % 11.5-14.5 Red Cell Distribution Width [facility] ([facility]) platelet count, automated 162 10 150-450 Platelet C ount, Automated [facility] ([facility]) nucleated red blood cell % 0.0 % 0-0 Nucleated Red Blood Cell % [facility] ([facility]) ID Date Data Source [id number] 12/13/2020 09:35:00 AM EST [facility] ([facility]) Name Value Range Interpretation Code Description Data Claribel rce(s) Supporting Document(s) glucose, fasting 270 mg/dL 70-100 Above high normal Glucose, Fas ting [facility]I ([facility]) blood urea nitrogen 13 mg/dL 7-18 Blood Urea Nitro gen [facility] ([facility]) creatinine for GFR 1.13 mg/dL 0.55-1.30 Creatinine for GF R CY[facility]I ([facility]) glomerular filtration rate >60 Below low normal Mariza merular Filtration Rate CY[facility]I ([facility]) sodium level 140 mEq/L 136-145 Sodium Level [facility]NDI ([facility]) potassium serum 4.0 mEq/L 3.5-5.1 Potassium Serum ATHE NA ([facility]) chloride level 111 mEq/L 98-107 Above high normal Chloride Level [facility] ([facility]) carbon dioxide level 19 mEq/L 21-32 Below low normal Carbon Di oxide Level [facility]I ([facility]) anion gap 10 mEq/L 8-16 Anion Gap [facility] ([facility]) calcium level 9.4 mg/dL 8.5-10.1 Calcium Level [facility]NDI ( [facility]) ID Date Data Source [id number] 12/13/2020 09:35:00 AM EST [facility] ([facility]) Name Value Range Interpretation Code Description Data Claribel rce(s) Supporting Document(s) white blood count 3.4 10 4.0-10.0 Below low normal White Blood Count [facility] ([facility]) red blood count 4.04 10 4.00-5.40 Red Blood Count ATHE ([facility]) hemoglobin 11.8 g/dL 12.0-15.5 Below low normal Hemoglobin CYNDI ( [facility]) hematocrit 35.7 % 36.0-47.0 Below low normal Hematocrit CY[facility]I ( [facility]) mean corpuscular volume 88.4 fL 80.0-96.0 Mean Corpusc ular Volume [facility]I ([facility]) mean corpuscular hemoglobin 29.2 pg 27.0-33.0 Mean Cor puscular Hemoglobin [facility]I ([facility]) mean corpuscular HGB conc 33.1 g/dL 32.0-36.5 Mean Corpu scular HGB Conc [facility] ([facility]) red cell distribution width 13.2 % 11.5-14.5 Red Cell Distribution Width [facility] ([facility]) platelet count, automated 162 10 150-450 Platelet C ount, Automated [facility] ([facility]) nucleated red blood cell % 0.0 % 0-0 Nucleated Red Blood Cell % [facility] ([facility]) ID Date Data Source [id number] 12/13/2020 09:35:00 AM EST [facility] ([facility]) Name Value Range Interpretation Code Description Data Claribel rce(s) Supporting Document(s) glucose, fasting 270 mg/dL 70-100 Above high normal Glucose, Fas ting [facility] ([facility]) blood urea nitrogen 13 mg/dL 7-18 Blood Urea Nitro gen [facility] ([facility]) creatinine for GFR 1.13 mg/dL 0.55-1.30 Creatinine for GF R [facility] ([facility]) glomerular filtration rate >60 Below low normal Mariza merular Filtration Rate CY[facility] ([facility]) sodium level 140 mEq/L 136-145 Sodium Level [facility] ([facility]) potassium serum 4.0 mEq/L 3.5-5.1 Potassium Serum ATHE NA ([facility]) chloride level 111 mEq/L 98-107 Above high normal Chloride Level [facility] ([facility]) carbon dioxide level 19 mEq/L 21-32 Below low normal Carbon Di oxide Level CY[facility]I ([facility]) anion gap 10 mEq/L 8-16 Anion Gap [facility] ([facility]) calcium level 9.4 mg/dL 8.5-10.1 Calcium Level [facility] ( [facility]) ID Date Data Source [id number] 12/13/2020 09:35:00 AM EST [facility] ([facility]) Name Value Range Interpretation Code Description Data Claribel rce(s) Supporting Document(s) white blood count 3.4 10 4.0-10.0 Below low normal White Blood Count [facility] ([facility]) red blood count 4.04 10 4.00-5.40 Red Blood Count ATHE NA ([facility]) hemoglobin 11.8 g/dL 12.0-15.5 Below low normal Hemoglobin CY[facility]I ( [facility]) hematocrit 35.7 % 36.0-47.0 Below low normal Hematocrit CY[facility]I ( [facility]) mean corpuscular volume 88.4 fL 80.0-96.0 Mean Corpusc ular Volume [facility]I ([facility]) mean corpuscular hemoglobin 29.2 pg 27.0-33.0 Mean Cor puscular Hemoglobin [facility] ([facility]) mean corpuscular HGB conc 33.1 g/dL 32.0-36.5 Mean Corpu scular HGB Conc [facility] ([facility]) red cell distribution width 13.2 % 11.5-14.5 Red Cell Distribution Width [facility] ([facility]) platelet count, automated 162 10 150-450 Platelet C ount, Automated [facility] ([facility]) nucleated red blood cell % 0.0 % 0-0 Nucleated Red Blood Cell % [facility] ([facility]) ID Date Data Source [id number] 12/13/2020 09:35:00 AM EST [facility] ([facility]) Name Value Range Interpretation Code Description Data Claribel rce(s) Supporting Document(s) glucose, fasting 270 mg/dL 70-100 Above high normal Glucose, Fas ting [facility] ([facility]) blood urea nitrogen 13 mg/dL 7-18 Blood Urea Nitro gen [facility] ([facility]) creatinine for GFR 1.13 mg/dL 0.55-1.30 Creatinine for GF R [facility] ([facility]) glomerular filtration rate >60 Below low normal Mariza merular Filtration Rate CY[facility]I ([facility]) sodium level 140 mEq/L 136-145 Sodium Level [facility] ([facility]) potassium serum 4.0 mEq/L 3.5-5.1 Potassium Serum ATHE NA ([facility]) chloride level 111 mEq/L 98-107 Above high normal Chloride Level [facility] ([facility]) carbon dioxide level 19 mEq/L 21-32 Below low normal Carbon Di oxide Level [facility]I ([facility]) anion gap 10 mEq/L 8-16 Anion Gap [facility] ([facility]) calcium level 9.4 mg/dL 8.5-10.1 Calcium Level [facility] ( [facility]) ID Date Data Source [id number] 12/13/2020 09:35:00 AM EST [facility] ([facility]) Name Value Range Interpretation Code Description Data Claribel rce(s) Supporting Document(s) white blood count 3.4 10 4.0-10.0 Below low normal White Blood Count [facility] ([facility]) red blood count 4.04 10 4.00-5.40 Red Blood Count ATHE NA ([facility]) hemoglobin 11.8 g/dL 12.0-15.5 Below low normal Hemoglobin CY[facility]I ( [facility]) hematocrit 35.7 % 36.0-47.0 Below low normal Hematocrit [facility]I ( [facility]) mean corpuscular volume 88.4 fL 80.0-96.0 Mean Corpusc ular Volume [facility] ([facility]) mean corpuscular hemoglobin 29.2 pg 27.0-33.0 Mean Cor puscular Hemoglobin [facility] ([facility]) red cell distribution width 13.2 % 11.5-14.5 Red Cell Distribution Width [facility] ([facility]) mean corpuscular HGB conc 33.1 g/dL 32.0-36.5 Mean Corpu scular HGB Conc [facility] ([facility]) platelet count, automated 162 10 150-450 Platelet C ount, Automated [facility] ([facility]) nucleated red blood cell % 0.0 % 0-0 Nucleated Red Blood Cell % [facility] ([facility]) ID Date Data Source [id number] 12/13/2020 09:35:00 AM EST [facility] ([facility]) Name Value Range Interpretation Code Description Data Claribel rce(s) Supporting Document(s) glucose, fasting 270 mg/dL 70-100 Above high normal Glucose, Fas ting [facility] ([facility]) blood urea nitrogen 13 mg/dL 7-18 Blood Urea Nitro gen [facility] ([facility]) creatinine for GFR 1.13 mg/dL 0.55-1.30 Creatinine for GF R CY[facility]I ([facility]) glomerular filtration rate >60 Below low normal Mariza merular Filtration Rate [facility] ([facility]) sodium level 140 mEq/L 136-145 Sodium Level [facility]I ([facility]) chloride level 111 mEq/L 98-107 Above high normal Chloride Level [facility] ([facility]) potassium serum 4.0 mEq/L 3.5-5.1 Potassium Serum ATHE NA ([facility]) carbon dioxide level 19 mEq/L 21-32 Below low normal Carbon Di oxide Level [facility]I ([facility]) anion gap 10 mEq/L 8-16 Anion Gap [facility] ([facility]) calcium level 9.4 mg/dL 8.5-10.1 Calcium Level CY[facility]I ( [facility]) ID Date Data Source [id number] 12/13/2020 09:35:00 AM EST [facility] ([facility]) Name Value Range Interpretation Code Description Data Claribel rce(s) Supporting Document(s) white blood count 3.4 10 4.0-10.0 Below low normal White Blood Count [facility] ([facility]) red blood count 4.04 10 4.00-5.40 Red Blood Count ATHE ([facility]) hemoglobin 11.8 g/dL 12.0-15.5 Below low normal Hemoglobin CYNDI ( [facility]) hematocrit 35.7 % 36.0-47.0 Below low normal Hematocrit [facility]I ( [facility]) mean corpuscular volume 88.4 fL 80.0-96.0 Mean Corpusc ular Volume [facility] ([facility]) mean corpuscular hemoglobin 29.2 pg 27.0-33.0 Mean Cor puscular Hemoglobin [facility] ([facility]) mean corpuscular HGB conc 33.1 g/dL 32.0-36.5 Mean Corpu scular HGB Conc [facility] ([facility]) red cell distribution width 13.2 % 11.5-14.5 Red Cell Distribution Width [facility] ([facility]) platelet count, automated 162 10 150-450 Platelet C ount, Automated [facility] ([facility]) nucleated red blood cell % 0.0 % 0-0 Nucleated Red Blood Cell % [facility] ([facility]) ID Date Data Source [id number] 12/13/2020 07:31:00 AM EST [facility] ([facility]) Name Value Range Interpretation Code Description Data Claribel rce(s) Supporting Document(s) bedside glucose 300 mg/dL 70-105 Above high normal Bedside Gluco se [facility]I ([facility]) ID Date Data Source [id number] 12/13/2020 07:31:00 AM EST [facility] ([facility]) Name Value Range Interpretation Code Description Data Claribel rce(s) Supporting Document(s) bedside glucose 300 mg/dL 70-105 Above high normal Bedside Gluco se [facility] ([facility]) ID Date Data Source [id number] 12/13/2020 07:31:00 AM EST [facility] ([facility]) Name Value Range Interpretation Code Description Data Claribel rce(s) Supporting Document(s) bedside glucose 300 mg/dL 70-105 Above high normal Bedside Gluco se [facility] ([facility]) ID Date Data Source [id number] 12/13/2020 07:31:00 AM EST [facility] ([facility]) Name Value Range Interpretation Code Description Data Claribel rce(s) Supporting Document(s) bedside glucose 300 mg/dL 70-105 Above high normal Bedside Gluco se [facility] ([facility]) ID Date Data Source [id number] 12/13/2020 07:31:00 AM EST [facility] ([facility]) Name Value Range Interpretation Code Description Data Claribel rce(s) Supporting Document(s) bedside glucose 300 mg/dL 70-105 Above high normal [facility] ID Date Data Source [id number] 12/13/2020 07:31:00 AM EST [facility]) Name Value Range Interpretation Code Description Data Claribel rce(s) Supporting Document(s) bedside glucose 300 mg/dL 70-105 Above high normal Bedside Gluco se [facility] ([facility]) ID Date Data Source [id number] 12/12/2020 08:46:00 PM EST CYND[facility] ([facility]) Name Value Range Interpretation Code Description Data Claribel rce(s) Supporting Document(s) bedside glucose 223 mg/dL 70-105 Above high normal Bedside Gluco se [facility] ([facility]) ID Date Data Source [id number] 12/12/2020 08:46:00 PM EST [facility] ([facility]) Name Value Range Interpretation Code Description Data Claribel rce(s) Supporting Document(s) bedside glucose 223 mg/dL 70-105 Above high normal Bedside Gluco se [facility]) ID Date Data Source [id number] 12/12/2020 08:46:00 PM EST [facility]) Name Value Range Interpretation Code Description Data Claribel rce(s) Supporting Document(s) bedside glucose 223 mg/dL 70-105 Above high normal [facility]side Gluco se [facility] [place] ID Date Data Source [id number] 12/12/2020 08:46:00 PM EST [facility] [place] Name Value Range Interpretation Code Description Data Claribel rce(s) Supporting Document(s) bedside glucose 223 mg/dL 70-105 Above high normal Bedside Gluco se [facility] ([facility]) ID Date Data Source [id number] 12/12/2020 08:46:00 PM EST [facility] [place] Name Value Range Interpretation Code Description Data Claribel rce(s) Supporting Document(s) bedside glucose 223 mg/dL 70-105 Above high normal Bedside Gluco se [facility] [place] ID Date Data Source [id number] 12/12/2020 08:46:00 PM EST [facility] ([facility]) Name Value Range Interpretation Code Description Data Claribel rce(s) Supporting Document(s) bedside glucose 223 mg/dL 70-105 Above high normal Bedside Gluco se [facility] ([facility]) ID Date Data Source [id number] 12/12/2020 04:33:00 PM EST [facility] ([facility]) Name Value Range Interpretation Code Description Data Claribel rce(s) Supporting Document(s) bedside glucose 264 mg/dL 70-105 Above high normal Bedside Gluco se [facility] ([facility]) ID Date Data Source [id number] 12/12/2020 04:33:00 PM EST [facility] ([facility]) Name Value Range Interpretation Code Description Data Claribel rce(s) Supporting Document(s) bedside glucose 264 mg/dL 70-105 Above high normal Bedside Gluco se [facility] ([facility]) ID Date Data Source [id number] 12/12/2020 04:33:00 PM EST CNY[facility] ([facility]) Name Value Range Interpretation Code Description Data Claribel rce(s) Supporting Document(s) bedside glucose 264 mg/dL 70-105 Above high normal Bedside Gluco se [facility]I ([facility]) ID Date Data Source [id number] 12/12/2020 04:33:00 PM EST [facility] ([facility]) Name Value Range Interpretation Code Description Data Claribel rce(s) Supporting Document(s) bedside glucose 264 mg/dL 70-105 Above high normal Bedside Gluco se [facility] ([facility]) ID Date Data Source [id number] 12/12/2020 04:33:00 PM EST [facility] ([facility]) Name Value Range Interpretation Code Description Data Claribel rce(s) Supporting Document(s) bedside glucose 264 mg/dL 70-105 Above high normal Bedside Gluco se [facility] ([facility]) ID Date Data Source [id number] 12/12/2020 04:33:00 PM EST [facility] ([facility]) Name Value Range Interpretation Code Description Data Claribel rce(s) Supporting Document(s) bedside glucose 264 mg/dL 70-105 Above high normal Bedside Gluco se [facility] ([facility]) ID Date Data Source [id number] 12/12/2020 12:02:00 PM EST [facility] [place] Name Value Range Interpretation Code Description Data Claribel rce(s) Supporting Document(s) bedside glucose 124 mg/dL 70-105 Above high normal Bedside Gluco se [facility]) ID Date Data Source [id number] 12/12/2020 12:02:00 PM EST [facility]) Name Value Range Interpretation Code Description Data Claribel rce(s) Supporting Document(s) bedside glucose 124 mg/dL 70-105 Above high normal Bedside Gluco se [facility] [place] ID Date Data Source [id number] 12/12/2020 12:02:00 PM EST [facility]) Name Value Range Interpretation Code Description Data Claribel rce(s) Supporting Document(s) bedside glucose 124 mg/dL 70-105 Above high normal Bedside Gluco se [facility] [place] ID Date Data Source [id number] 12/12/2020 12:02:00 PM EST CYNDI [facility]) Name Value Range Interpretation Code Description Data Claribel rce(s) Supporting Document(s) bedside glucose 124 mg/dL 70-105 Above high normal [facility] [place] ID Date Data Source [id number] 12/12/2020 12:02:00 PM EST CYNDI ([facility]) Name Value Range Interpretation Code Description Data Claribel rce(s) Supporting Document(s) bedside glucose 124 mg/dL 70-105 Above high normal Bedside Gluco se CYNDI ([facility]) ID Date Data Source [id number] 12/12/2020 12:02:00 PM EST CYNDI ([facility]) Name Value Range Interpretation Code Description Data Claribel rce(s) Supporting Document(s) bedside glucose 124 mg/dL 70-105 Above high normal Bedside Gluco se CYNDI ([facility]) ID Date Data Source [id number] 12/12/2020 08:03:00 AM EST CYNDI ([facility]) Name Value Range Interpretation Code Description Data Claribel rce(s) Supporting Document(s) bedside glucose 156 mg/dL 70-105 Above high normal Bedside Gluco se CYNDI ([facility]) ID Date Data Source [id number] 12/12/2020 08:03:00 AM EST CYNDI ([facility]) Name Value Range Interpretation Code Description Data Claribel rce(s) Supporting Document(s) bedside glucose 156 mg/dL 70-105 Above high normal Bedside Gluco se CYNDI ([facility]) ID Date Data Source [id number] 12/12/2020 08:03:00 AM EST CYNDI ([facility]) Name Value Range Interpretation Code Description Data Claribel rce(s) Supporting Document(s) bedside glucose 156 mg/dL 70-105 Above high normal Bedside Gluco se CYNDI ([facility]) ID Date Data Source [id number] 12/12/2020 08:03:00 AM EST CYNDI ([facility]) Name Value Range Interpretation Code Description Data Claribel rce(s) Supporting Document(s) bedside glucose 156 mg/dL 70-105 Above high normal Bedside Gluco se CYNDI ([facility]) ID Date Data Source [id number] 12/12/2020 08:03:00 AM EST CYNDI ([facility]) Name Value Range Interpretation Code Description Data Claribel rce(s) Supporting Document(s) bedside glucose 156 mg/dL 70-105 Above high normal [facility] [place] ID Date Data Source [id number] 12/12/2020 08:03:00 AM EST CYNDI [facility]) Name Value Range Interpretation Code Description Data Claribel rce(s) Supporting Document(s) bedside glucose 156 mg/dL 70-105 Above high normal Bedside Gluco se [facility]) ID Date Data Source [id number] 12/12/2020 06:26:00 AM EST [facility]) Name Value Range Interpretation Code Description Data Claribel rce(s) Supporting Document(s) bedside glucose 170 mg/dL 70-105 Above high normal Bedside Gluco se [facility]) ID Date Data Source [id number] 12/12/2020 06:26:00 AM EST CYNDI ([facility]) Name Value Range Interpretation Code Description Data Claribel rce(s) Supporting Document(s) bedside glucose 170 mg/dL 70-105 Above high normal [facility]side [facility]uc[facility] se [facility] [place] ID Date Data Source [id number] 12/12/2020 06:26:00 AM EST CYNDI [facility]) Name Value Range Interpretation Code Description Data Claribel rce(s) Supporting Document(s) bedside glucose 170 mg/dL 70-105 Above high normal [facility] [place] ID Date Data Source [id number] 12/12/2020 06:26:00 AM EST CYNDI ([facility]) Name Value Range Interpretation Code Description Data Claribel rce(s) Supporting Document(s) bedside glucose 170 mg/dL 70-105 Above high normal Bedside Gluco se CYNDI ([facility]) ID Date Data Source [id number] 12/12/2020 06:26:00 AM EST CYNDI ([facility]) Name Value Range Interpretation Code Description Data Claribel rce(s) Supporting Document(s) bedside glucose 170 mg/dL 70-105 Above high normal Bedside Gluco se CYNDI ([facility]) ID Date Data Source [id number] 12/12/2020 06:26:00 AM EST CYNDI ([facility]) Name Value Range Interpretation Code Description Data Claribel rce(s) Supporting Document(s) bedside glucose 170 mg/dL 70-105 Above high normal Bedside Gluco se CYNDI ([facility]) ID Date Data Source [id number] 12/12/2020 05:08:00 AM EST CYNDI ([facility]) Name Value Range Interpretation Code Description Data Claribel rce(s) Supporting Document(s) bedside glucose 114 mg/dL 70-105 Above high normal Bedside Gluco se CYNDI ([facility]) ID Date Data Source [id number] 12/12/2020 05:08:00 AM EST CYNDI ([facility]) Name Value Range Interpretation Code Description Data Claribel rce(s) Supporting Document(s) bedside glucose 114 mg/dL 70-105 Above high normal Bedside Gluco se CYNDI ([facility]) ID Date Data Source [id number] 12/12/2020 05:08:00 AM EST CYNDI ([facility]) Name Value Range Interpretation Code Description Data Claribel rce(s) Supporting Document(s) bedside glucose 114 mg/dL 70-105 Above high normal Bedside Gluco se HANNA ([facility]) ID Date Data Source [id number] 12/12/2020 05:08:00 AM LE HANNA ([facility]) Name Value Range Interpretation Code Description Data Claribel rce(s) Supporting Document(s) bedside glucose 114 mg/dL 70-105 Above high normal Bedside Gluco se HANNA ([facility]) ID Date Data Source [id number] 12/12/2020 05:08:00 AM LE HANNA ([facility]) Name Value Range Interpretation Code Description Data Claribel rce(s) Supporting Document(s) bedside glucose 114 mg/dL 70-105 Above high normal Bedside Gluco se HENRIQUEZENA ([facility]) ID Date Data Source [id number] 12/12/2020 05:08:00 AM LE HANNA [facility]) Name Value Range Interpretation Code Description Data Claribel rce(s) Supporting Document(s) bedside glucose 114 mg/dL 70-105 Above high normal Bedside Gluco se HANNA [facility]) ID Date Data Source [id number] 12/12/2020 04:32:00 AM LE HANNA ([facility]) Name Value Range Interpretation Code Description Data Claribel rce(s) Supporting Document(s) magnesium level 2.6 mg/dL 1.8-2.4 Above high normal Magnesium Lev vasile [facility]) ID Date Data Source [id number] 12/12/2020 04:32:00 AM LE HANNA [facility]) Name Value Range Interpretation Code Description Data Claribel rce(s) Supporting Document(s) phosphorus level 1.5 mg/dL 2.5-4.9 Below low normal Phosphorus Le karma CYNDI ([facility]) ID Date Data Source [id number] 12/12/2020 04:32:00 AM EST CYNDI ([facility]) Name Value Range Interpretation Code Description Data Claribel rce(s) Supporting Document(s) glucose, fasting 135 mg/dL 70-100 Above high normal Glucose, Fas ting [facility] ([facility]) blood urea nitrogen 9 mg/dL 7-18 Blood Urea Nitro gen CYNDI ([facility]) creatinine for GFR 1.15 mg/dL 0.55-1.30 Creatinine for GF R [facility] ([facility]) glomerular filtration rate >60 Below low normal Mariza merular Filtration Rate CYNDI ([facility]) sodium level 143 mEq/L 136-145 Sodium Level CYNDI ([facility]) potassium serum 3.5 mEq/L 3.5-5.1 Potassium Serum ATH NA ([facility]) chloride level 114 mEq/L 98-107 Above high normal Chloride Level [facility] ([facility]) carbon dioxide level 20 mEq/L 21-32 Below low normal Carbon Di oxide Level [facility]ILD ([facility]) anion gap 9 mEq/L 8-16 Anion Gap [facility] ([facility]) calcium level 8.3 mg/dL 8.5-10.1 Below low normal Calcium Level AT [facility]) ID Date Data Source [id number] 12/12/2020 04:32:00 AM EST [facility] ([facility]) Name Value Range Interpretation Code Description Data Claribel rce(s) Supporting Document(s) white blood count 4.7 10 4.0-10.0 White Blood Count [facility] ([facility]) red blood count 3.44 10 4.00-5.40 Below low normal Red Blood Coun t [facility] ([facility]) hemoglobin 9.9 g/dL 12.0-15.5 Below low normal Hemoglobin [facility] ( [facility]) hematocrit 29.9 % 36.0-47.0 Below low normal Hematocrit [facility] ( [facility]) mean corpuscular hemoglobin 28.8 pg 27.0-33.0 Mean Cor puscular Hemoglobin [facility] ([facility]) mean corpuscular volume 86.9 fL 80.0-96.0 Mean Corpusc ular Volume [facility] ([facility]) mean corpuscular HGB conc 33.1 g/dL 32.0-36.5 Mean Corpu scular HGB Conc [facility] ([facility]) red cell distribution width 13.2 % 11.5-14.5 Red Cell Distribution Width [facility] ([facility]) platelet count, automated 171 10 150-450 Platelet C ount, Automated [facility] ([facility]) nucleated red blood cell % 0.0 % 0-0 Nucleated Red Blood Cell % [facility] ([facility]) ID Date Data Source [id number] 12/12/2020 04:32:00 AM LE HENRIQUEZENA ([facility]) Name Value Range Interpretation Code Description Data Claribel rce(s) Supporting Document(s) magnesium level 2.6 mg/dL 1.8-2.4 Above high normal Magnesium Lev el [facility] ([facility]) ID Date Data Source [id number] 12/12/2020 04:32:00 AM LE HENRIQUEZENA ([facility]) Name Value Range Interpretation Code Description Data Claribel rce(s) Supporting Document(s) phosphorus level 1.5 mg/dL 2.5-4.9 Below low normal Phosphorus Le karma [facility] ([facility]) ID Date Data Source [id number] 12/12/2020 04:32:00 AM EST CYNDI ([facility]) Name Value Range Interpretation Code Description Data Claribel rce(s) Supporting Document(s) glucose, fasting 135 mg/dL 70-100 Above high normal Glucose, Fas ting [facility] ([facility]) blood urea nitrogen 9 mg/dL 7-18 Blood Urea Nitro gen [facility] ([facility]) creatinine for GFR 1.15 mg/dL 0.55-1.30 Creatinine for GF R CYNDI ([facility]) glomerular filtration rate >60 Below low normal Mariza merular Filtration Rate CYNDI ([facility]) sodium level 143 mEq/L 136-145 Sodium Level CYNDI ([facility]) potassium serum 3.5 mEq/L 3.5-5.1 Potassium Serum ATHE NA ([facility]) chloride level 114 mEq/L 98-107 Above high normal Chloride Level [facility] ([facility]) anion gap 9 mEq/L 8-16 Anion Gap CYNDI ([facility]) carbon dioxide level 20 mEq/L 21-32 Below low normal Carbon Di oxide Level [facility] ([facility]) calcium level 8.3 mg/dL 8.5-10.1 Below low normal Calcium Level AT [facility]) ID Date Data Source [id number] 12/12/2020 04:32:00 AM EST [facility] ([facility]) Name Value Range Interpretation Code Description Data Claribel rce(s) Supporting Document(s) white blood count 4.7 10 4.0-10.0 White Blood Count [facility] ([facility]) red blood count 3.44 10 4.00-5.40 Below low normal Red Blood Coun t [facility] ([facility]) hemoglobin 9.9 g/dL 12.0-15.5 Below low normal Hemoglobin [facility] ( [facility]) hematocrit 29.9 % 36.0-47.0 Below low normal Hematocrit [facility]ILD ( [facility]) mean corpuscular volume 86.9 fL 80.0-96.0 Mean Corpusc ular Volume [facility] ([facility]) mean corpuscular HGB conc 33.1 g/dL 32.0-36.5 Mean Corpu scular HGB Conc CYNDI ([facility]) mean corpuscular hemoglobin 28.8 pg 27.0-33.0 Mean Cor puscular Hemoglobin [facility] ([facility]) red cell distribution width 13.2 % 11.5-14.5 Red Cell Distribution Width [facility] ([facility]) platelet count, automated 171 10 150-450 Platelet C ount, Automated CYNDI ([facility]) nucleated red blood cell % 0.0 % 0-0 Nucleated Red Blood Cell % CYNDI ([facility]) ID Date Data Source [id number] 12/12/2020 04:32:00 AM EST CYNDI ([facility]) Name Value Range Interpretation Code Description Data Claribel rce(s) Supporting Document(s) magnesium level 2.6 mg/dL 1.8-2.4 Above high normal Magnesium Lev el CYNDI ([facility]) ID Date Data Source [id number] 12/12/2020 04:32:00 AM EST CYNDI ([facility]) Name Value Range Interpretation Code Description Data Claribel rce(s) Supporting Document(s) phosphorus level 1.5 mg/dL 2.5-4.9 Below low normal Phosphorus Le karma CYNDI ([facility]) ID Date Data Source [id number] 12/12/2020 04:32:00 AM EST CYNDI ([facility]) Name Value Range Interpretation Code Description Data Claribel rce(s) Supporting Document(s) glucose, fasting 135 mg/dL 70-100 Above high normal Glucose, Fas ting [facility] ([facility]) blood urea nitrogen 9 mg/dL 7-18 Blood Urea Nitro gen CYNDI ([facility]) creatinine for GFR 1.15 mg/dL 0.55-1.30 Creatinine for GF R [facility] ([facility]) glomerular filtration rate >60 Below low normal Mariza merular Filtration Rate CYNDI ([facility]) sodium level 143 mEq/L 136-145 Sodium Level CYNDI ([facility]) potassium serum 3.5 mEq/L 3.5-5.1 Potassium Serum ATHE NA ([facility]) chloride level 114 mEq/L 98-107 Above high normal Chloride Level [facility] ([facility]) carbon dioxide level 20 mEq/L 21-32 Below low normal Carbon Di oxide Level CYNDI ([facility]) anion gap 9 mEq/L 8-16 Anion Gap CYNDI ([facility]) calcium level 8.3 mg/dL 8.5-10.1 Below low normal Calcium Level AT [facility]) ID Date Data Source [id number] 12/12/2020 04:32:00 AM EST [facility] ([facility]) Name Value Range Interpretation Code Description Data Claribel rce(s) Supporting Document(s) white blood count 4.7 10 4.0-10.0 White Blood Count [facility] ([facility]) red blood count 3.44 10 4.00-5.40 Below low normal Red Blood Coun t [facility] ([facility]) hemoglobin 9.9 g/dL 12.0-15.5 Below low normal Hemoglobin [facility]ILD ( [facility]) hematocrit 29.9 % 36.0-47.0 Below low normal Hematocrit [facility]ILD ( [facility]) mean corpuscular volume 86.9 fL 80.0-96.0 Mean Corpusc ular Volume [facility] ([facility]) mean corpuscular hemoglobin 28.8 pg 27.0-33.0 Mean Cor puscular Hemoglobin [facility] ([facility]) mean corpuscular HGB conc 33.1 g/dL 32.0-36.5 Mean Corpu scular HGB Conc [facility] ([facility]) platelet count, automated 171 10 150-450 Platelet C ount, Automated CYNDI ([facility]) red cell distribution width 13.2 % 11.5-14.5 Red Cell Distribution Width [facility] ([facility]) nucleated red blood cell % 0.0 % 0-0 Nucleated Red Blood Cell % [facility] ([facility]) ID Date Data Source [id number] 12/12/2020 04:32:00 AM EST [facility] ([facility]) Name Value Range Interpretation Code Description Data Claribel rce(s) Supporting Document(s) magnesium level 2.6 mg/dL 1.8-2.4 Above high normal Magnesium Lev el CYNDI ([facility]) ID Date Data Source [id number] 12/12/2020 04:32:00 AM EST CYNDI ([facility]) Name Value Range Interpretation Code Description Data Claribel rce(s) Supporting Document(s) phosphorus level 1.5 mg/dL 2.5-4.9 Below low normal Phosphorus Le karma CYNDI ([facility]) ID Date Data Source [id number] 12/12/2020 04:32:00 AM EST CYNDI ([facility]) Name Value Range Interpretation Code Description Data Claribel rce(s) Supporting Document(s) glucose, fasting 135 mg/dL 70-100 Above high normal Glucose, Fas ting [facility] ([facility]) blood urea nitrogen 9 mg/dL 7-18 Blood Urea Nitro gen [facility] ([facility]) creatinine for GFR 1.15 mg/dL 0.55-1.30 Creatinine for GF R [facility] ([facility]) glomerular filtration rate >60 Below low normal Mariza merular Filtration Rate CYNDI ([facility]) sodium level 143 mEq/L 136-145 Sodium Level CYNDI ([facility]) potassium serum 3.5 mEq/L 3.5-5.1 Potassium Serum ATH NA ([facility]) chloride level 114 mEq/L 98-107 Above high normal Chloride Level [facility] ([facility]) carbon dioxide level 20 mEq/L 21-32 Below low normal Carbon Di oxide Level [facility]ILD ([facility]) anion gap 9 mEq/L 8-16 Anion Gap CYNDI ([facility]) calcium level 8.3 mg/dL 8.5-10.1 Below low normal Calcium Level AT [place] ([facility]) ID Date Data Source [id number] 12/12/2020 04:32:00 AM EST CYNDI ([facility]) Name Value Range Interpretation Code Description Data Claribel rce(s) Supporting Document(s) white blood count 4.7 10 4.0-10.0 White Blood Count CYNDI ([facility]) red blood count 3.44 10 4.00-5.40 Below low normal Red Blood Coun t CYNDI ([facility]) hematocrit 29.9 % 36.0-47.0 Below low normal Hematocrit [facility] ( [facility]) hemoglobin 9.9 g/dL 12.0-15.5 Below low normal Hemoglobin [facility]ILD ( [facility]) mean corpuscular volume 86.9 fL 80.0-96.0 Mean Corpusc ular Volume CYNDI ([facility]) mean corpuscular hemoglobin 28.8 pg 27.0-33.0 Mean Cor puscular Hemoglobin [facility] ([facility]) mean corpuscular HGB conc 33.1 g/dL 32.0-36.5 Mean Corpu scular HGB Conc [facility]ILD ([facility]) red cell distribution width 13.2 % 11.5-14.5 Red Cell Distribution Width [facility] ([facility]) platelet count, automated 171 10 150-450 Platelet C ount, Automated CYNDI ([facility]) nucleated red blood cell % 0.0 % 0-0 Nucleated Red Blood Cell % [facility] ([facility]) ID Date Data Source [id number] 12/12/2020 04:32:00 AM EST [facility] ([facility]) Name Value Range Interpretation Code Description Data Claribel rce(s) Supporting Document(s) magnesium level 2.6 mg/dL 1.8-2.4 Above high normal Magnesium Lev vasile [facility] ([facility]) ID Date Data Source [id number] 12/12/2020 04:32:00 AM EST [facility] ([facility]) Name Value Range Interpretation Code Description Data Claribel rce(s) Supporting Document(s) phosphorus level 1.5 mg/dL 2.5-4.9 Below low normal Phosphorus Le karma [facility] ([facility]) ID Date Data Source [id number] 12/12/2020 04:32:00 AM EST [facility] ([facility]) Name Value Range Interpretation Code Description Data Claribel rce(s) Supporting Document(s) blood urea nitrogen 9 mg/dL 7-18 Blood Urea Nitro gen CYNDI ([facility]) glucose, fasting 135 mg/dL 70-100 Above high normal Glucose, Fas ting CYNDI ([facility]) creatinine for GFR 1.15 mg/dL 0.55-1.30 Creatinine for GF R CYNDI ([facility]) glomerular filtration rate >60 Below low normal Mariza merular Filtration Rate CYNDI ([facility]) potassium serum 3.5 mEq/L 3.5-5.1 Potassium Serum ATH NA ([facility]) sodium level 143 mEq/L 136-145 Sodium Level CYNDI ([facility]) chloride level 114 mEq/L 98-107 Above high normal Chloride Level CYNDI ([facility]) anion gap 9 mEq/L 8-16 Anion Gap CYNDI ([facility]) carbon dioxide level 20 mEq/L 21-32 Below low normal Carbon Di oxide Level [facility]ILD ([facility]) calcium level 8.3 mg/dL 8.5-10.1 Below low normal Calcium Level AT [facility]) ID Date Data Source [id number] 12/12/2020 04:32:00 AM EST [facility] ([facility]) Name Value Range Interpretation Code Description Data Claribel rce(s) Supporting Document(s) white blood count 4.7 10 4.0-10.0 White Blood Count CYNDI ([facility]) hemoglobin 9.9 g/dL 12.0-15.5 Below low normal Hemoglobin CYNDI ( [facility]) red blood count 3.44 10 4.00-5.40 Below low normal Red Blood Coun t CYNDI ([facility]) hematocrit 29.9 % 36.0-47.0 Below low normal Hematocrit CYNDI ( [facility]) mean corpuscular hemoglobin 28.8 pg 27.0-33.0 Mean Cor puscular Hemoglobin CYNDI ([facility]) mean corpuscular volume 86.9 fL 80.0-96.0 Mean Corpusc ular Volume CYNDI ([facility]) mean corpuscular HGB conc 33.1 g/dL 32.0-36.5 Mean Corpu scular HGB Conc CYNDI ([facility]) red cell distribution width 13.2 % 11.5-14.5 Red Cell Distribution Width CYNDI ([facility]) platelet count, automated 171 10 150-450 Platelet C ount, Automated CYNDI ([facility]) nucleated red blood cell % 0.0 % 0-0 Nucleated Red Blood Cell % CYNDI ([facility]) ID Date Data Source [id number] 12/12/2020 04:32:00 AM LE HANNA ([facility]) Name Value Range Interpretation Code Description Data Claribel rce(s) Supporting Document(s) magnesium level 2.6 mg/dL 1.8-2.4 Above high normal Magnesium Lev vasile HENRIQUEZENA ([facility]) ID Date Data Source [id number] 12/12/2020 04:32:00 AM EST CYNDI ([facility]) Name Value Range Interpretation Code Description Data Claribel rce(s) Supporting Document(s) phosphorus level 1.5 mg/dL 2.5-4.9 Below low normal Phosphorus Le karma CYNDI ([facility]) ID Date Data Source [id number] 12/12/2020 04:32:00 AM EST CYNDI ([facility]) Name Value Range Interpretation Code Description Data Claribel rce(s) Supporting Document(s) glucose, fasting 135 mg/dL 70-100 Above high normal Glucose, Fas ting ROTHSCHILD ([facility]) blood urea nitrogen 9 mg/dL 7-18 Blood Urea Nitro gen ROTHSCHILD ([facility]) creatinine for GFR 1.15 mg/dL 0.55-1.30 Creatinine for GF R ROTHSCHILD ([facility]) sodium level 143 mEq/L 136-145 Sodium Level CYNDI ([facility]) glomerular filtration rate >60 Below low normal Mariza merular Filtration Rate CYNDI ([facility]) potassium serum 3.5 mEq/L 3.5-5.1 Potassium Serum ATHE NA ([facility]) chloride level 114 mEq/L 98-107 Above high normal Chloride Level CYNDI ([facility]) carbon dioxide level 20 mEq/L 21-32 Below low normal Carbon Di oxide Level CYNDI ([facility]) anion gap 9 mEq/L 8-16 Anion Gap CYNDI ([facility]) calcium level 8.3 mg/dL 8.5-10.1 Below low normal Calcium Level AT [facility]) ID Date Data Source [id number] 12/12/2020 04:32:00 AM EST [facility]) Name Value Range Interpretation Code Description Data Claribel rce(s) Supporting Document(s) white blood count 4.7 10 4.0-10.0 White Blood Count CYNDI ([facility]) red blood count 3.44 10 4.00-5.40 Below low normal Red Blood Coun t ROTHSCHILD ([facility]) hemoglobin 9.9 g/dL 12.0-15.5 Below low normal Hemoglobin CYNDI ( [facility]) hematocrit 29.9 % 36.0-47.0 Below low normal Hematocrit CYNDI ( [facility]) mean corpuscular volume 86.9 fL 80.0-96.0 Mean Corpusc ular Volume CYNDI ([facility]) mean corpuscular hemoglobin 28.8 pg 27.0-33.0 Mean Cor puscular Hemoglobin CYDNI ([facility]) mean corpuscular HGB conc 33.1 g/dL 32.0-36.5 Mean Corpu scular HGB Conc CYNDI ([facility]) red cell distribution width 13.2 % 11.5-14.5 Red Cell Distribution Width CYNDI ([facility]) platelet count, automated 171 10 150-450 Platelet C ount, Automated CYNDI ([facility]) nucleated red blood cell % 0.0 % 0-0 Nucleated Red Blood Cell % ROTHSCHILD ([facility]) ID Date Data Source [id number] 12/12/2020 04:24:00 AM EST CYNDI ([facility]) Name Value Range Interpretation Code Description Data Claribel rce(s) Supporting Document(s) bedside glucose 133 mg/dL 70-105 Above high normal Bedside Gluco se CYNDI ([facility]) ID Date Data Source [id number] 12/12/2020 04:24:00 AM EST CYNDI [facility]) Name Value Range Interpretation Code Description Data Claribel rce(s) Supporting Document(s) bedside glucose 133 mg/dL 70-105 Above high normal Bedside Gluco se [employer]ILD ([facility]) ID Date Data Source [id number] 12/12/2020 04:24:[facility] Name Value Range Interpretation Code Description Data Claribel rce(s) Supporting Document(s) bedside glucose 133 mg/dL 70-105 Above high normal Bedside Gluco se [employer]ILD ([facility]) ID Date Data Source [id number] 12/12/2020 04:24:00 AM EST CYNDI [facility]) Name Value Range Interpretation Code Description Data Claribel rce(s) Supporting Document(s) bedside glucose 133 mg/dL 70-105 Above high normal [facility] [place] [facility] ID Date Data Source [id number] 12/12/2020 04:24:00 AM EST CYNDI [facility]) Name Value Range Interpretation Code Description Data Claribel rce(s) Supporting Document(s) bedside glucose 133 mg/dL 70-105 Above high normal [facility] [place] ID Date Data Source [id number] 12/12/2020 04:24:00 AM EST CYNDI ([facility]) Name Value Range Interpretation Code Description Data Claribel rce(s) Supporting Document(s) bedside glucose 133 mg/dL 70-105 Above high normal Bedside Gluco se CYNDI ([facility]) ID Date Data Source [id number] 12/12/2020 03:01:00 AM EST CYNDI ([facility]) Name Value Range Interpretation Code Description Data Claribel rce(s) Supporting Document(s) bedside glucose 153 mg/dL 70-105 Above high normal Bedside Gluco se CYNDI ([facility]) ID Date Data Source [id number] 12/12/2020 03:01:00 AM EST CYNDI ([facility]) Name Value Range Interpretation Code Description Data Claribel rce(s) Supporting Document(s) bedside glucose 153 mg/dL 70-105 Above high normal Bedside Gluco se ROTHSCHILD ([facility]) ID Date Data Source [id number] 12/12/2020 03:01:00 AM EST CYNDI ([facility]) Name Value Range Interpretation Code Description Data Claribel rce(s) Supporting Document(s) bedside glucose 153 mg/dL 70-105 Above high normal Bedside Gluco se CYNDI ([facility]) ID Date Data Source [id number] 12/12/2020 03:01:00 AM EST CYNDI ([facility]) Name Value Range Interpretation Code Description Data Claribel rce(s) Supporting Document(s) bedside glucose 153 mg/dL 70-105 Above high normal [facility] ID Date Data Source [id number] 12/12/2020 03:01:00 AM EST CYNDI [facility]) Name Value Range Interpretation Code Description Data Claribel rce(s) Supporting Document(s) bedside glucose 153 mg/dL 70-105 Above high normal Bedside Gluco se CYNDI ([facility]) ID Date Data Source [id number] 12/12/2020 03:01:00 AM EST CYNDI ([facility]) Name Value Range Interpretation Code Description Data Claribel rce(s) Supporting Document(s) bedside glucose 153 mg/dL 70-105 Above high normal Bedside Gluco se CYNDI ([facility]) ID Date Data Source [id number] 12/12/2020 02:13:00 AM EST CYNDI ([facility]) Name Value Range Interpretation Code Description Data Claribel rce(s) Supporting Document(s) bedside glucose 140 mg/dL 70-105 Above high normal Bedside Gluco se ROTHSCHILD ([facility]) ID Date Data Source [id number] 12/12/2020 02:13:00 AM EST CYNDI ([facility]) Name Value Range Interpretation Code Description Data Claribel rce(s) Supporting Document(s) bedside glucose 140 mg/dL 70-105 Above high normal Bedside Gluco se CYNDI ([facility]) ID Date Data Source [id number] 12/12/2020 02:13:00 AM EST CYNDI ([facility]) Name Value Range Interpretation Code Description Data Claribel rce(s) Supporting Document(s) bedside glucose 140 mg/dL 70-105 Above high normal Bedside Gluco se CYNDI ([facility]) ID Date Data Source [id number] 12/12/2020 02:13:00 AM EST CYNDI ([facility]) Name Value Range Interpretation Code Description Data Claribel rce(s) Supporting Document(s) bedside glucose 140 mg/dL 70-105 Above high normal Bedside [facility]uco se [facility] [place] ID Date Data Source [id number] 12/12/2020 02:13:00 AM EST CYNDI ([facility]) Name Value Range Interpretation Code Description Data Claribel rce(s) Supporting Document(s) bedside glucose 140 mg/dL 70-105 Above high normal Bedside Gluco se CYNDI ([facility]) ID Date Data Source [id number] 12/12/2020 02:13:00 AM EST CYNDI ([facility]) Name Value Range Interpretation Code Description Data Claribel rce(s) Supporting Document(s) bedside glucose 140 mg/dL 70-105 Above high normal Bedside Gluco se CYNDI ([facility]) ID Date Data Source [id number] 12/12/2020 01:26:00 AM EST CYNDI ([facility]) Name Value Range Interpretation Code Description Data Claribel rce(s) Supporting Document(s) bedside glucose 115 mg/dL 70-105 Above high normal Bedside Gluco se ROTHSCHILD ([facility]) ID Date Data Source [id number] 12/12/2020 01:26:00 AM EST CYNDI ([facility]) Name Value Range Interpretation Code Description Data Claribel rce(s) Supporting Document(s) bedside glucose 115 mg/dL 70-105 Above high normal Bedside Gluco se CYNDI ([facility]) ID Date Data Source [id number] 12/12/2020 01:26:00 AM EST CYNDI ([facility]) Name Value Range Interpretation Code Description Data Claribel rce(s) Supporting Document(s) bedside glucose 115 mg/dL 70-105 Above high normal [facility]side [facility]uco se [facility] [place] ID Date Data Source [id number] 12/12/2020 01:26:00 AM EST CYNDI ([facility]) Name Value Range Interpretation Code Description Data Claribel rce(s) Supporting Document(s) bedside glucose 115 mg/dL 70-105 Above high normal Bedside Gluco se ROTHSCHILD ([facility]) ID Date Data Source [id number] 12/12/2020 01:26:00 AM EST [facility] [place] [facility] Name Value Range Interpretation Code Description Data Claribel rce(s) Supporting Document(s) bedside glucose 115 mg/dL 70-105 Above high normal Bedside Gluco se CYNDI ([facility]) ID Date Data Source [id number] 12/12/2020 01:26:00 AM EST [facility]) Name Value Range Interpretation Code Description Data Claribel rce(s) Supporting Document(s) bedside glucose 115 mg/dL 70-105 Above high normal Bedside Gluco se [facility]) ID Date Data Source [id number] 12/12/2020 12:21:00 AM EST [facility]) Name Value Range Interpretation Code Description Data Claribel rce(s) Supporting Document(s) bedside glucose 130 mg/dL 70-105 Above high normal Bedside Gluco se [facility]) ID Date Data Source [id number] 12/12/2020 12:21:00 AM EST [facility] [place] Name Value Range Interpretation Code Description Data Claribel rce(s) Supporting Document(s) bedside glucose 130 mg/dL 70-105 Above high normal Bedside Gluco se [facility]) ID Date Data Source [id number] 12/12/2020 12:21:00 AM EST [facility]) Name Value Range Interpretation Code Description Data Claribel rce(s) Supporting Document(s) bedside glucose 130 mg/dL 70-105 Above high normal Bedside Gluco se [facility] [place] ID Date Data Source [id number] 12/12/2020 12:21:00 AM EST CYNDI ([facility]) Name Value Range Interpretation Code Description Data Claribel rce(s) Supporting Document(s) bedside glucose 130 mg/dL 70-105 Above high normal Bedside Gluco se CYNDI ([facility]) ID Date Data Source [id number] 12/12/2020 12:21:00 AM EST CYNDI ([facility]) Name Value Range Interpretation Code Description Data Claribel rce(s) Supporting Document(s) bedside glucose 130 mg/dL 70-105 Above high normal Bedside Gluco se CYNDI ([facility]) ID Date Data Source [id number] 12/12/2020 12:21:00 AM EST CYNDI ([facility]) Name Value Range Interpretation Code Description Data Claribel rce(s) Supporting Document(s) bedside glucose 130 mg/dL 70-105 Above high normal Bedside Gluco se CYNDI ([facility]) ID Date Data Source [id number] 12/12/2020 12:15:00 AM EST CYNDI [facility]) Name Value Range Interpretation Code Description Data Claribel rce(s) Supporting Document(s) phosphorus level 2.3 mg/dL 2.5-4.9 Below low normal Phosphorus Le karma CYNDI ([facility]) ID Date Data Source [id number] 12/12/2020 12:15:00 AM EST CYNDI ([facility]) Name Value Range Interpretation Code Description Data Claribel rce(s) Supporting Document(s) magnesium level 2.9 mg/dL 1.8-2.4 Above high normal Magnesium Lev el CYNDI [facility]) ID Date Data Source [id number] 12/12/2020 12:15:00 AM EST CYNDI ([facility]) Name Value Range Interpretation Code Description Data Claribel rce(s) Supporting Document(s) phosphorus level 2.3 mg/dL 2.5-4.9 Below low normal Phosphorus Le karma CYNDI ([facility]) ID Date Data Source [id number] 12/12/2020 12:15:00 AM EST CYNDI ([facility]) Name Value Range Interpretation Code Description Data Claribel rce(s) Supporting Document(s) glucose, fasting 146 mg/dL 70-100 Above high normal Glucose, Fas ting ROTHSCHILD ([facility]) blood urea nitrogen 12 mg/dL 7-18 Blood Urea Nitro gen CYNDI ([facility]) creatinine for GFR 1.02 mg/dL 0.55-1.30 Creatinine for GF R ROTHSCHILD ([facility]) glomerular filtration rate > 60.0 >60 Glomerula r Filtration Rate ROTHSCHILD ([facility]) potassium serum 3.4 mEq/L 3.5-5.1 Below low normal Potassium Seru m ROTHSCHILD ([facility]) sodium level 141 mEq/L 136-145 Sodium Level CYNDI ([facility]) chloride level 113 mEq/L 98-107 Above high normal Chloride Level ROTHSCHILD ([facility]) carbon dioxide level 19 mEq/L 21-32 Below low normal Carbon Di oxide Level ROTHSCHILD ([facility]) anion gap 9 mEq/L 8-16 Anion Gap CYNDI ([facility]) calcium level 8.5 mg/dL 8.5-10.1 Calcium Level CYNDI ( [facility]) ID Date Data Source [id number] 12/12/2020 12:15:00 AM EST CYNDI ([facility]) Name Value Range Interpretation Code Description Data Lcaribel rce(s) Supporting Document(s) phosphorus level 2.3 mg/dL 2.5-4.9 Below low normal Phosphorus Le karma CYNDI ([facility]) ID Date Data Source [id number] 12/12/2020 12:15:00 AM EST CYNDI ([facility]) Name Value Range Interpretation Code Description Data Claribel rce(s) Supporting Document(s) magnesium level 2.9 mg/dL 1.8-2.4 Above high normal Magnesium Lev el CYNDI ([facility]) ID Date Data Source [id number] 12/12/2020 12:15:00 AM EST CYNDI ([facility]) Name Value Range Interpretation Code Description Data Claribel rce(s) Supporting Document(s) phosphorus level 2.3 mg/dL 2.5-4.9 Below low normal Phosphorus Le karma CYNDI ([facility]) ID Date Data Source [id number] 12/12/2020 12:15:00 AM EST CYNDI ([facility]) Name Value Range Interpretation Code Description Data Claribel rce(s) Supporting Document(s) glucose, fasting 146 mg/dL 70-100 Above high normal Glucose, Fas ting ROTHSCHILD ([facility]) blood urea nitrogen 12 mg/dL 7-18 Blood Urea Nitro gen ROT[facility]CHILD ([facility]) creatinine for GFR 1.02 mg/dL 0.55-1.30 Creatinine for GF R ROTHSCHILD ([facility]) glomerular filtration rate > 60.0 >60 Glomerula r Filtration Rate ROTHSCHILD ([facility]) sodium level 141 mEq/L 136-145 Sodium Level CYNDI ([facility]) potassium serum 3.4 mEq/L 3.5-5.1 Below low normal Potassium Seru m CYNDI ([facility]) chloride level 113 mEq/L 98-107 Above high normal Chloride Level ROT[facility]CHILD ([facility]) carbon dioxide level 19 mEq/L 21-32 Below low normal Carbon Di oxide Level ROTHSCHILD ([facility]) anion gap 9 mEq/L 8-16 Anion Gap ROT[facility]CHILD ([facility]) calcium level 8.5 mg/dL 8.5-10.1 Calcium Level ROTHSCHILD ( [facility]) ID Date Data Source [id number] 12/12/2020 12:15:00 AM EST CYNDI ([facility]) Name Value Range Interpretation Code Description Data Claribel rce(s) Supporting Document(s) phosphorus level 2.3 mg/dL 2.5-4.9 Below low normal Phosphorus Le karma HANNA ([facility]) ID Date Data Source [id number] 12/12/2020 12:15:00 AM EST CYNDI ([facility]) Name Value Range Interpretation Code Description Data Claribel rce(s) Supporting Document(s) magnesium level 2.9 mg/dL 1.8-2.4 Above high normal Magnesium Lev el CYNDI ([facility]) ID Date Data Source [id number] 12/12/2020 12:15:00 AM EST CYNDI ([facility]) Name Value Range Interpretation Code Description Data Claribel rce(s) Supporting Document(s) phosphorus level 2.3 mg/dL 2.5-4.9 Below low normal Phosphorus Le karma HANNA ([facility]) ID Date Data Source [id number] 12/12/2020 12:15:00 AM EST CYNDI ([facility]) Name Value Range Interpretation Code Description Data Claribel rce(s) Supporting Document(s) glucose, fasting 146 mg/dL 70-100 Above high normal Glucose, Fas ting ROTHSCHILD ([facility]) creatinine for GFR 1.02 mg/dL 0.55-1.30 Creatinine for GF R ROTHSCHILD ([facility]) blood urea nitrogen 12 mg/dL 7-18 Blood Urea Nitro gen CYNDI ([facility]) glomerular filtration rate > 60.0 >60 Glomerula r Filtration Rate ROTHSCHILD ([facility]) sodium level 141 mEq/L 136-145 Sodium Level CYNDI ([facility]) potassium serum 3.4 mEq/L 3.5-5.1 Below low normal Potassium Seru m ROTHSCHILD ([facility]) chloride level 113 mEq/L 98-107 Above high normal Chloride Level CYNDI ([facility]) anion gap 9 mEq/L 8-16 Anion Gap CYNDI ([facility]) carbon dioxide level 19 mEq/L 21-32 Below low normal Carbon Di oxide Level CYNDI ([facility]) calcium level 8.5 mg/dL 8.5-10.1 Calcium Level CYNDI ( [facility]) ID Date Data Source [id number] 12/12/2020 12:15:00 AM EST CYNDI ([facility]) Name Value Range Interpretation Code Description Data Claribel rce(s) Supporting Document(s) glucose, fasting 146 mg/dL 70-100 Above high normal Glucose, Fas ting CYNDI ([facility]) blood urea nitrogen 12 mg/dL 7-18 Blood Urea Nitro gen CYNDI ([facility]) creatinine for GFR 1.02 mg/dL 0.55-1.30 Creatinine for GF R CYNDI ([facility]) glomerular filtration rate > 60.0 >60 Glomerula r Filtration Rate CYNDI ([facility]) sodium level 141 mEq/L 136-145 Sodium Level CYNDI ([facility]) potassium serum 3.4 mEq/L 3.5-5.1 Below low normal Potassium Seru m CYNDI ([facility]) chloride level 113 mEq/L 98-107 Above high normal Chloride Level CYNDI ([facility]) carbon dioxide level 19 mEq/L 21-32 Below low normal Carbon Di oxide Level CYNDI ([facility]) anion gap 9 mEq/L 8-16 Anion Gap CYNDI ([facility]) calcium level 8.5 mg/dL 8.5-10.1 Calcium Level CYNDI ( [facility]) ID Date Data Source [id number] 12/12/2020 12:15:00 AM EST CYNDI ([facility]) Name Value Range Interpretation Code Description Data Claribel rce(s) Supporting Document(s) phosphorus level 2.3 mg/dL 2.5-4.9 Below low normal Phosphorus Le karma CYNDI ([facility]) ID Date Data Source [id number] 12/12/2020 12:15:00 AM EST CYNDI ([facility]) Name Value Range Interpretation Code Description Data Claribel rce(s) Supporting Document(s) magnesium level 2.9 mg/dL 1.8-2.4 Above high normal Magnesium Lev vasile HENRIQUEZENA ([facility]) ID Date Data Source [id number] 12/12/2020 12:15:00 AM EST CYNDI ([facility]) Name Value Range Interpretation Code Description Data Claribel rce(s) Supporting Document(s) phosphorus level 2.3 mg/dL 2.5-4.9 Below low normal Phosphorus Le karma HANNA ([facility]) ID Date Data Source [id number] 12/12/2020 12:15:00 AM EST CYNDI ([facility]) Name Value Range Interpretation Code Description Data Claribel rce(s) Supporting Document(s) glucose, fasting 146 mg/dL 70-100 Above high normal Glucose, Fas ting R[employer]CHILD ([facility]) blood urea nitrogen 12 mg/dL 7-18 Blood Urea Nitro gen [facility]CHILD ([facility]) creatinine for GFR 1.02 mg/dL 0.55-1.30 Creatinine for GF R ROTHSCHILD ([facility]) glomerular filtration rate > 60.0 >60 Glomerula r Filtration Rate ROTHSCHILD ([facility]) sodium level 141 mEq/L 136-145 Sodium Level CYNDI ([facility]) potassium serum 3.4 mEq/L 3.5-5.1 Below low normal Potassium Seru m ROTHSCHILD ([facility]) chloride level 113 mEq/L 98-107 Above high normal Chloride Level R[employer]CHILD ([facility]) carbon dioxide level 19 mEq/L 21-32 Below low normal Carbon Di oxide Level ROTHSCHILD ([facility]) anion gap 9 mEq/L 8-16 Anion Gap R[facility]CHILD ([facility]) calcium level 8.5 mg/dL 8.5-10.1 Calcium Level ROTHSCHILD ( [facility]) ID Date Data Source [id number] 12/12/2020 12:15:00 AM EST CYNDI ([facility]) Name Value Range Interpretation Code Description Data Claribel rce(s) Supporting Document(s) phosphorus level 2.3 mg/dL 2.5-4.9 Below low normal Phosphorus Le karma HANNA ([facility]) ID Date Data Source [id number] 12/12/2020 12:15:00 AM EST CYNDI ([facility]) Name Value Range Interpretation Code Description Data Claribel rce(s) Supporting Document(s) magnesium level 2.9 mg/dL 1.8-2.4 Above high normal Magnesium Lev vasile R[employer]CHILD ([facility]) ID Date Data Source [id number] 12/12/2020 12:15:00 AM EST CYNDI ([facility]) Name Value Range Interpretation Code Description Data Claribel rce(s) Supporting Document(s) phosphorus level 2.3 mg/dL 2.5-4.9 Below low normal Phosphorus Le karma HENRIQUEZENA ([facility]) ID Date Data Source [id number] 12/12/2020 12:15:00 AM EST CYNDI ([facility]) Name Value Range Interpretation Code Description Data Claribel rce(s) Supporting Document(s) glucose, fasting 146 mg/dL 70-100 Above high normal Glucose, Fas ting [facility]CHILD ([facility]) blood urea nitrogen 12 mg/dL 7-18 Blood Urea Nitro gen R[employer]CHILD ([facility]) creatinine for GFR 1.02 mg/dL 0.55-1.30 Creatinine for GF R R[employer]CHILD ([facility]) glomerular filtration rate > 60.0 >60 Glomerula r Filtration Rate ROTHSCHILD ([facility]) sodium level 141 mEq/L 136-145 Sodium Level CYNDI ([facility]) potassium serum 3.4 mEq/L 3.5-5.1 Below low normal Potassium Seru m [facility]I ([facility] [facility]) chloride level 113 mEq/L 98-107 Above high normal Chloride Level CYNDI ([facility]) carbon dioxide level 19 mEq/L 21-32 Below low normal Carbon Di oxide Level CYNDI ([facility]) anion gap 9 mEq/L 8-16 Anion Gap CYNDI ([facility]) calcium level 8.5 mg/dL 8.5-10.1 Calcium Level ROTHSCHILD ( [facility]) ID Date Data Source [id number] 12/12/2020 12:15:00 AM EST CYNDI ([facility]) Name Value Range Interpretation Code Description Data Claribel rce(s) Supporting Document(s) phosphorus level 2.3 mg/dL 2.5-4.9 Below low normal Phosphorus Le karma HENRIQUEZENA ([facility]) ID Date Data Source [id number] 12/12/2020 12:15:00 [facility] [place] Name Value Range Interpretation Code Description Data Claribel rce(s) Supporting Document(s) magnesium level 2.9 mg/dL 1.8-2.4 Above high normal Magnesium [facility] Date Data Source [id number] 12/12/2020 12:15:00 AM EST CYNDI [facility]) Name Value Range Interpretation Code Description Data Claribel rce(s) Supporting Document(s) phosphorus level 2.3 mg/dL 2.5-4.9 Below low normal Phosphorus Le karma HENRIQUEZENA ([facility]) ID Date Data Source [id number] 12/11/2020 11:18:00 PM EST CYNDI [facility]) Name Value Range Interpretation Code Description Data Claribel rce(s) Supporting Document(s) bedside glucose 142 mg/dL 70-105 Above high normal Bedside Gluco se CYNDI ([facility]) ID Date Data Source [id number] 12/11/2020 11:18:00 PM EST CYNDI ([facility]) Name Value Range Interpretation Code Description Data Claribel rce(s) Supporting Document(s) bedside glucose 142 mg/dL 70-105 Above high normal Bedside Gluco se CYNDI ([facility]) ID Date Data Source [id number] 12/11/2020 11:18:00 PM EST CYNDI ([facility]) Name Value Range Interpretation Code Description Data Claribel rce(s) Supporting Document(s) bedside glucose 142 mg/dL 70-105 Above high normal Bedside Gluco se CYNDI ([facility]) ID Date Data Source [id number] 12/11/2020 11:18:00 PM EST CYNDI ([facility]) Name Value Range Interpretation Code Description Data Claribel rce(s) Supporting Document(s) bedside glucose 142 mg/dL 70-105 Above high normal Bedside Gluco se CYNDI ([facility]) ID Date Data Source [id number] 12/11/2020 11:18:00 PM EST CYNDI ([facility]) Name Value Range Interpretation Code Description Data Claribel rce(s) Supporting Document(s) bedside glucose 142 mg/dL 70-105 Above high normal Bedside Gluco se CYNDI ([facility]) ID Date Data Source [id number] 12/11/2020 11:18:00 PM EST CYNDI ([facility]) Name Value Range Interpretation Code Description Data Claribel rce(s) Supporting Document(s) bedside glucose 142 mg/dL 70-105 Above high normal Bedside Gluco se CYNDI ([facility]) ID Date Data Source [id number] 12/11/2020 10:21:00 PM EST CYNDI ([facility]) Name Value Range Interpretation Code Description Data Claribel rce(s) Supporting Document(s) bedside glucose 135 mg/dL 70-105 Above high normal Bedside Gluco se CYNDI ([facility]) ID Date Data Source [id number] 12/11/2020 10:21:00 PM EST CYNDI ([facility]) Name Value Range Interpretation Code Description Data Claribel rce(s) Supporting Document(s) bedside glucose 135 mg/dL 70-105 Above high normal Bedside Gluco se CYNDI ([facility]) ID Date Data Source [id number] 12/11/2020 10:21:00 PM EST CYNDI ([facility]) Name Value Range Interpretation Code Description Data Claribel rce(s) Supporting Document(s) bedside glucose 135 mg/dL 70-105 Above high normal Bedside Gluco se CYNDI ([facility]) ID Date Data Source [id number] 12/11/2020 10:21:00 PM EST CYNDI ([facility]) Name Value Range Interpretation Code Description Data Claribel rce(s) Supporting Document(s) bedside glucose 135 mg/dL 70-105 Above high normal Bedside Gluco se CYNDI ([facility]) ID Date Data Source [id number] 12/11/2020 10:21:00 PM EST CYNDI ([facility]) Name Value Range Interpretation Code Description Data Claribel rce(s) Supporting Document(s) bedside glucose 135 mg/dL 70-105 Above high normal Bedside Gluco se CYNDI ([facility]) ID Date Data Source [id number] 12/11/2020 10:21:00 PM EST CYNDI ([facility]) Name Value Range Interpretation Code Description Data Claribel rce(s) Supporting Document(s) bedside glucose 135 mg/dL 70-105 Above high normal Bedside Gluco se [facility] ([facility]) ID Date Data Source [id number] 12/11/2020 09:17:00 PM EST CYNDI ([facility]) Name Value Range Interpretation Code Description Data Claribel rce(s) Supporting Document(s) bedside glucose 146 mg/dL 70-105 Above high normal Bedside Gluco se CYNDI ([facility]) ID Date Data Source [id number] 12/11/2020 09:17:00 PM EST CYNDI ([facility]) Name Value Range Interpretation Code Description Data Claribel rce(s) Supporting Document(s) bedside glucose 146 mg/dL 70-105 Above high normal Bedside Gluco se [facility]) ID Date Data Source [id number] 12/11/2020 09:17:00 PM EST CYNDI ([facility]) Name Value Range Interpretation Code Description Data Claribel rce(s) Supporting Document(s) bedside glucose 146 mg/dL 70-105 Above high normal Bedside Gluco se [facility] ([facility]) ID Date Data Source [id number] 12/11/2020 09:17:00 PM [place] [facility] [place] Name Value Range Interpretation Code Description Data Claribel rce(s) Supporting Document(s) bedside glucose 146 mg/dL 70-105 Above high normal Bedside Gluco se CYNDI ([facility]) ID Date Data Source [id number] 12/11/2020 09:17:00 PM EST [facility] [place] Name Value Range Interpretation Code Description Data Claribel rce(s) Supporting Document(s) bedside glucose 146 mg/dL 70-105 Above high normal Bedside Gluco se [facility]) ID Date Data Source [id number] 12/11/2020 09:17:00 PM EST CYNDI ([facility]) Name Value Range Interpretation Code Description Data Claribel rce(s) Supporting Document(s) bedside glucose 146 mg/dL 70-105 Above high normal Bedside Gluco se CYNDI ([facility]) ID Date Data Source [id number] 12/11/2020 08:14:00 PM EST CYNDI ([facility]) Name Value Range Interpretation Code Description Data Claribel rce(s) Supporting Document(s) bedside glucose 163 mg/dL 70-105 Above high normal Bedside Gluco se CYNDI ([facility]) ID Date Data Source [id number] 12/11/2020 08:14:00 PM EST CYNDI ([facility]) Name Value Range Interpretation Code Description Data Claribel rce(s) Supporting Document(s) bedside glucose 163 mg/dL 70-105 Above high normal Bedside Gluco se CYNDI ([facility]) ID Date Data Source [id number] 12/11/2020 08:14:00 PM EST CYNDI ([facility]) Name Value Range Interpretation Code Description Data Claribel rce(s) Supporting Document(s) bedside glucose 163 mg/dL 70-105 Above high normal Bedside Gluco se CYNDI ([facility]) ID Date Data Source [id number] 12/11/2020 08:14:00 PM EST CYNDI ([facility]) Name Value Range Interpretation Code Description Data Claribel rce(s) Supporting Document(s) bedside glucose 163 mg/dL 70-105 Above high normal Bedside Gluco se CYNDI ([facility]) ID Date Data Source [id number] 12/11/2020 08:14:00 PM EST CYNDI ([facility]) Name Value Range Interpretation Code Description Data Claribel rce(s) Supporting Document(s) bedside glucose 163 mg/dL 70-105 Above high normal Bedside Gluco se CYNDI ([facility]) ID Date Data Source [id number] 12/11/2020 08:14:00 PM EST CYNDI ([facility]) Name Value Range Interpretation Code Description Data Claribel rce(s) Supporting Document(s) bedside glucose 163 mg/dL 70-105 Above high normal Bedside Gluco se CYNDI ([facility]) ID Date Data Source [id number] 12/11/2020 08:05:00 PM EST CYNDI ([facility]) Name Value Range Interpretation Code Description Data Claribel rce(s) Supporting Document(s) magnesium level 1.6 mg/dL 1.8-2.4 Below low normal Magnesium Mona HENRIQUEZENA ([facility]) ID Date Data Source [id number] 12/11/2020 08:05:00 PM EST CYNDI ([facility]) Name Value Range Interpretation Code Description Data Claribel rce(s) Supporting Document(s) phosphorus level 1.8 mg/dL 2.5-4.9 Below low normal Phosphorus Le karma CYNDI ([facility]) ID Date Data Source [id number] 12/11/2020 08:05:00 PM EST CYNDI ([facility]) Name Value Range Interpretation Code Description Data Claribel rce(s) Supporting Document(s) glucose, fasting 162 mg/dL 70-100 Above high normal Glucose, Fas ting [facility] ([facility]) blood urea nitrogen 14 mg/dL 7-18 Blood Urea Nitro gen CYNDI ([facility]) creatinine for GFR 1.21 mg/dL 0.55-1.30 Creatinine for GF R [facility] ([facility]) glomerular filtration rate >60 Below low normal Mariza merular Filtration Rate CYNDI ([facility]) sodium level 142 mEq/L 136-145 Sodium Level CYNDI ([facility]) chloride level 114 mEq/L 98-107 Above high normal Chloride Level CYNDI ([facility]) potassium serum 3.6 mEq/L 3.5-5.1 Potassium Serum ATHE NA ([facility]) carbon dioxide level 19 mEq/L 21-32 Below low normal Carbon Di oxide Level CYNDI ([facility]) anion gap 9 mEq/L 8-16 Anion Gap CYNDI ([facility]) calcium level 8.7 mg/dL 8.5-10.1 Calcium Level CYNDI ( [facility]) ID Date Data Source [id number] 12/11/2020 08:05:00 PM EST CYNDI ([facility]) Name Value Range Interpretation Code Description Data Claribel rce(s) Supporting Document(s) magnesium level 1.6 mg/dL 1.8-2.4 Below low normal Magnesium Leve l [facility]ILD ([facility]) ID Date Data Source [id number] 12/11/2020 08:05:00 PM EST CYNDI ([facility]) Name Value Range Interpretation Code Description Data Claribel rce(s) Supporting Document(s) phosphorus level 1.8 mg/dL 2.5-4.9 Below low normal Phosphorus Le karma CYNDI ([facility]) ID Date Data Source [id number] 12/11/2020 08:05:00 PM EST CYNDI ([facility]) Name Value Range Interpretation Code Description Data Claribel rce(s) Supporting Document(s) glucose, fasting 162 mg/dL 70-100 Above high normal Glucose, Fas ting CYNDI ([facility]) blood urea nitrogen 14 mg/dL 7-18 Blood Urea Nitro gen CYNDI ([facility]) glomerular filtration rate >60 Below low normal Mariza merular Filtration Rate CYNDI ([facility]) creatinine for GFR 1.21 mg/dL 0.55-1.30 Creatinine for GF R CYNDI ([facility]) chloride level 114 mEq/L 98-107 Above high normal Chloride Level [facility]OT[facility]CHILD ([facility]) potassium serum 3.6 mEq/L 3.5-5.1 Potassium Serum ATHE NA ([facility]) sodium level 142 mEq/L 136-145 Sodium Level CYNDI ([facility]) carbon dioxide level 19 mEq/L 21-32 Below low normal Carbon Di oxide Level CYNDI ([facility]) anion gap 9 mEq/L 8-16 Anion Gap CYNDI ([facility]) calcium level 8.7 mg/dL 8.5-10.1 Calcium Level CYNDI ( [facility]) ID Date Data Source [id number] 12/11/2020 08:05:00 PM EST CYNDI ([facility]) Name Value Range Interpretation Code Description Data Claribel rce(s) Supporting Document(s) magnesium level 1.6 mg/dL 1.8-2.4 Below low normal Magnesium Mona HENRIQUEZENA ([facility]) ID Date Data Source [id number] 12/11/2020 08:05:00 PM EST CYNDI ([facility]) Name Value Range Interpretation Code Description Data Claribel rce(s) Supporting Document(s) phosphorus level 1.8 mg/dL 2.5-4.9 Below low normal Phosphorus Le karma CYNDI ([facility]) ID Date Data Source [id number] 12/11/2020 08:05:00 PM EST CYNDI ([facility]) Name Value Range Interpretation Code Description Data Claribel rce(s) Supporting Document(s) blood urea nitrogen 14 mg/dL 7-18 Blood Urea Nitro gen CYNDI ([facility]) glucose, fasting 162 mg/dL 70-100 Above high normal Glucose, Fas ting CYNDI ([facility]) creatinine for GFR 1.21 mg/dL 0.55-1.30 Creatinine for GF R CYNDI ([facility]) glomerular filtration rate >60 Below low normal Mariza merular Filtration Rate CYNDI ([facility]) sodium level 142 mEq/L 136-145 Sodium Level CYNDI ([facility]) potassium serum 3.6 mEq/L 3.5-5.1 Potassium Serum ATHE NA ([facility]) chloride level 114 mEq/L 98-107 Above high normal Chloride Level ROT[facility]CHILD ([facility]) carbon dioxide level 19 mEq/L 21-32 Below low normal Carbon Di oxide Level CYNDI ([facility]) calcium level 8.7 mg/dL 8.5-10.1 Calcium Level CYNDI ( [facility]) anion gap 9 mEq/L 8-16 Anion Gap CYNDI ([facility]) ID Date Data Source [id number] 12/11/2020 08:05:00 PM EST CYNDI ([facility]) Name Value Range Interpretation Code Description Data Claribel rce(s) Supporting Document(s) magnesium level 1.6 mg/dL 1.8-2.4 Below low normal Magnesium Mona HANNA ([facility]) ID Date Data Source [id number] 12/11/2020 08:05:00 PM EST CYNDI ([facility]) Name Value Range Interpretation Code Description Data Claribel rce(s) Supporting Document(s) phosphorus level 1.8 mg/dL 2.5-4.9 Below low normal Phosphorus Le karma CYNDI ([facility]) ID Date Data Source [id number] 12/11/2020 08:05:00 PM EST CYNDI ([facility]) Name Value Range Interpretation Code Description Data Claribel rce(s) Supporting Document(s) glucose, fasting 162 mg/dL 70-100 Above high normal Glucose, Fas ting [facility]ILD ([facility]) creatinine for GFR 1.21 mg/dL 0.55-1.30 Creatinine for GF R CYNDI ([facility]) blood urea nitrogen 14 mg/dL 7-18 Blood Urea Nitro gen CYNDI ([facility]) potassium serum 3.6 mEq/L 3.5-5.1 Potassium Serum ATHE NA ([facility]) glomerular filtration rate >60 Below low normal Mariza merular Filtration Rate CYNDI ([facility]) sodium level 142 mEq/L 136-145 Sodium Level CYNDI ([facility]) carbon dioxide level 19 mEq/L 21-32 Below low normal Carbon Di oxide Level CYNDI ([facility]) chloride level 114 mEq/L 98-107 Above high normal Chloride Level CYNDI ([facility]) anion gap 9 mEq/L 8-16 Anion Gap CYNDI ([facility]) calcium level 8.7 mg/dL 8.5-10.1 Calcium Level CYNDI ( [facility]) ID Date Data Source [id number] 12/11/2020 08:05:00 PM EST CYNDI ([facility]) Name Value Range Interpretation Code Description Data Claribel rce(s) Supporting Document(s) magnesium level 1.6 mg/dL 1.8-2.4 Below low normal Magnesium Leve l CYNDI ([facility]) ID Date Data Source [id number] 12/11/2020 08:05:00 PM EST CYNDI ([facility]) Name Value Range Interpretation Code Description Data Claribel rce(s) Supporting Document(s) phosphorus level 1.8 mg/dL 2.5-4.9 Below low normal Phosphorus Le karma CYNDI ([facility]) ID Date Data Source [id number] 12/11/2020 08:05:00 PM EST CYNDI ([facility]) Name Value Range Interpretation Code Description Data Claribel rce(s) Supporting Document(s) glucose, fasting 162 mg/dL 70-100 Above high normal Glucose, Fas ting CYNDI ([facility]) blood urea nitrogen 14 mg/dL 7-18 Blood Urea Nitro gen CYNDI ([facility]) glomerular filtration rate >60 Below low normal Mariza merular Filtration Rate CYNDI ([facility]) creatinine for GFR 1.21 mg/dL 0.55-1.30 Creatinine for GF R CYNDI ([facility]) potassium serum 3.6 mEq/L 3.5-5.1 Potassium Serum ATHE NA ([facility]) sodium level 142 mEq/L 136-145 Sodium Level CYNDI ([facility]) chloride level 114 mEq/L 98-107 Above high normal Chloride Level CYNDI ([facility]) anion gap 9 mEq/L 8-16 Anion Gap CYNDI ([facility]) carbon dioxide level 19 mEq/L 21-32 Below low normal Carbon Di oxide Level CYNDI ([facility]) calcium level 8.7 mg/dL 8.5-10.1 Calcium Level CYNDI ( [facility]) ID Date Data Source [id number] 12/11/2020 08:05:00 PM EST CYNDI ([facility]) Name Value Range Interpretation Code Description Data Claribel rce(s) Supporting Document(s) magnesium level 1.6 mg/dL 1.8-2.4 Below low normal Magnesium Mona HENRIQUEZENA ([facility]) ID Date Data Source [id number] 12/11/2020 08:05:00 PM EST CYNDI ([facility]) Name Value Range Interpretation Code Description Data Claribel rce(s) Supporting Document(s) phosphorus level 1.8 mg/dL 2.5-4.9 Below low normal Phosphorus Le karma CYNDI ([facility]) ID Date Data Source [id number] 12/11/2020 08:05:00 PM EST CYNDI ([facility]) Name Value Range Interpretation Code Description Data Claribel rce(s) Supporting Document(s) blood urea nitrogen 14 mg/dL 7-18 Blood Urea Nitro gen CYNDI ([facility]) glucose, fasting 162 mg/dL 70-100 Above high normal Glucose, Fas ting CYNDI ([facility]) glomerular filtration rate >60 Below low normal Mariza merular Filtration Rate CYNDI ([facility]) creatinine for GFR 1.21 mg/dL 0.55-1.30 Creatinine for GF R CYNDI ([facility]) sodium level 142 mEq/L 136-145 Sodium Level CYNDI ([facility]) potassium serum 3.6 mEq/L 3.5-5.1 Potassium Serum ATHE NA ([facility]) chloride level 114 mEq/L 98-107 Above high normal Chloride Level CYNDI ([facility]) anion gap 9 mEq/L 8-16 Anion Gap CYNDI ([facility]) carbon dioxide level 19 mEq/L 21-32 Below low normal Carbon Di oxide Level CYNDI ([facility]) calcium level 8.7 mg/dL 8.5-10.1 Calcium Level CYNDI ( [facility]) ID Date Data Source [id number] 12/11/2020 07:18:00 PM EST [facility]ILD ([facility]) Name Value Range Interpretation Code Description Data Claribel rce(s) Supporting Document(s) bedside glucose 160 mg/dL 70-105 Above high normal Bedside Gluco se [facility]) ID Date Data Source [id number] 12/11/2020 07:18:00 PM EST [facility]OT[facility]ILD ([facility]) Name Value Range Interpretation Code Description Data Claribel rce(s) Supporting Document(s) bedside glucose 160 mg/dL 70-105 Above high normal Bedside Gluco se [facility]) ID Date Data Source [id number] 12/11/2020 07:18:00 PM EST CYNDI ([facility]) Name Value Range Interpretation Code Description Data Claribel rce(s) Supporting Document(s) bedside glucose 160 mg/dL 70-105 Above high normal [facility] [place] [place] Date Data Source [id number] 12/11/2020 07:18:00 PM EST [facility] [place] Name Value Range Interpretation Code Description Data Claribel rce(s) Supporting Document(s) bedside glucose 160 mg/dL 70-105 Above high normal Bedside Gluco se CYNDI ([facility]) ID Date Data Source [id number] 12/11/2020 07:18:00 PM EST CYNDI ([facility]) Name Value Range Interpretation Code Description Data Claribel rce(s) Supporting Document(s) bedside glucose 160 mg/dL 70-105 Above high normal Bedside Gluco se CYNDI ([facility]) ID Date Data Source [id number] 12/11/2020 07:18:00 PM EST CYNDI ([facility]) Name Value Range Interpretation Code Description Data Claribel rce(s) Supporting Document(s) bedside glucose 160 mg/dL 70-105 Above high normal Bedside Gluco se [facility]) ID Date Data Source [id number] 12/11/2020 06:13:00 PM EST CYNDI ([facility]) Name Value Range Interpretation Code Description Data Claribel rce(s) Supporting Document(s) bedside glucose 187 mg/dL 70-105 Above high normal [facility] [place] ID Date Data Source [id number] 12/11/2020 06:13:00 PM EST CYNDI ([facility]) Name Value Range Interpretation Code Description Data Claribel rce(s) Supporting Document(s) bedside glucose 187 mg/dL 70-105 Above high normal Bedside Gluco se CYNDI ([facility]) ID Date Data Source [id number] 12/11/2020 06:13:00 [place] [facility] [place] Name Value Range Interpretation Code Description Data Claribel rce(s) Supporting Document(s) bedside glucose 187 mg/dL 70-105 Above high normal Bedside Gluco se [facility] [place] ID Date Data Source [id number] 12/11/2020 06:13:00 PM EST CYNDI ([facility]) Name Value Range Interpretation Code Description Data Claribel rce(s) Supporting Document(s) bedside glucose 187 mg/dL 70-105 Above high normal Bedside Gluco se CYNDI ([facility]) ID Date Data Source [id number] 12/11/2020 06:13:00 PM EST CYNDI ([facility]) Name Value Range Interpretation Code Description Data Claribel rce(s) Supporting Document(s) bedside glucose 187 mg/dL 70-105 Above high normal Bedside Gluco se CYNDI ([facility]) ID Date Data Source [id number] 12/11/2020 06:13:00 PM EST CYNDI ([facility]) Name Value Range Interpretation Code Description Data Claribel rce(s) Supporting Document(s) bedside glucose 187 mg/dL 70-105 Above high normal Bedside Gluco se CYNDI ([facility]) ID Date Data Source [id number] 12/11/2020 04:58:00 PM EST CYNDI ([facility]) Name Value Range Interpretation Code Description Data Claribel rce(s) Supporting Document(s) bedside glucose 146 mg/dL 70-105 Above high normal Bedside Gluco se CYNDI ([facility]) ID Date Data Source [id number] 12/11/2020 04:58:00 PM EST CYNDI ([facility]) Name Value Range Interpretation Code Description Data Claribel rce(s) Supporting Document(s) bedside glucose 146 mg/dL 70-105 Above high [facility] [place] Date Data Source [id number] 12/11/2020 04:58:00 PM [place] [facility] [place] Name Value Range Interpretation Code Description Data Claribel rce(s) Supporting Document(s) bedside glucose 146 mg/dL 70-105 Above high normal Bedside Gluco se CYNDI ([facility]) ID Date Data Source [id number] 12/11/2020 04:58:00 PM EST CYNDI ([facility]) Name Value Range Interpretation Code Description Data Claribel rce(s) Supporting Document(s) bedside glucose 146 mg/dL 70-105 Above high normal Bedside Gluco se CYNDI ([facility]) ID Date Data Source [id number] 12/11/2020 04:58:00 PM [place] [facility] [place] Name Value Range Interpretation Code Description Data Claribel rce(s) Supporting Document(s) bedside glucose 146 mg/dL 70-105 Above high normal [facility] [place] ID Date Data Source [id number] 12/11/2020 04:58:00 PM EST [facility]) Name Value Range Interpretation Code Description Data Claribel rce(s) Supporting Document(s) bedside glucose 146 mg/dL 70-105 Above high normal Bedside Gluco se CYNDI ([facility]) ID Date Data Source [id number] 12/11/2020 04:56:00 PM EST CYNDI ([facility]) Name Value Range Interpretation Code Description Data Claribel rce(s) Supporting Document(s) phosphorus level 1.9 mg/dL 2.5-4.9 Below low normal Phosphorus Le karma CYNDI ([facility]) ID Date Data Source [id number] 12/11/2020 04:56:00 PM EST CYNDI ([facility]) Name Value Range Interpretation Code Description Data Claribel rce(s) Supporting Document(s) glucose, fasting 169 mg/dL 70-100 Above high normal Glucose, Fas ting [facility] ([facility]) blood urea nitrogen 16 mg/dL 7-18 Blood Urea Nitro gen CYNDI ([facility]) creatinine for GFR 1.19 mg/dL 0.55-1.30 Creatinine for GF R CYNDI ([facility]) glomerular filtration rate >60 Below low normal Mariza merular Filtration Rate CYNDI ([facility]) sodium level 141 mEq/L 136-145 Sodium Level CYNDI ([facility]) potassium serum 3.5 mEq/L 3.5-5.1 Potassium Serum ATHE NA ([facility]) chloride level 112 mEq/L 98-107 Above high normal Chloride Level CY[facility]I ([facility]) carbon dioxide level 18 mEq/L 21-32 Below low normal Carbon Di oxide Level CY[facility]I ([facility]) calcium level 8.6 mg/dL 8.5-10.1 Calcium Level [facility] ( [facility]) anion gap 11 mEq/L 8-16 Anion Gap [facility] ([facility]) ID Date Data Source [id number] 12/11/2020 04:56:00 PM EST [facility] ([facility]) Name Value Range Interpretation Code Description Data Claribel rce(s) Supporting Document(s) venous pH 7.305 units 7.330-7.430 Below low normal Venous pH [facility] ([facility]) venous partial pressure CO2 35.7 mmHg 38.0-50.0 Below low nor mal Venous Partial Pressure CO2 [facility] ([facility]) venous partial pressure O2 188.7 mmHg 30.0-50.0 Above high nor mal Venous Partial Pressure O2 [facility] ([facility]) venous total CO2 18.5 mEq/L 24.0-28.0 Below low normal Venous Total CO2 CY[facility] ([facility]) venous base excess -2.0-2.0 Below low normal Venous Base Excess [facility] ([facility]) venous HCO3 17.4 mEq/L 23.0-27.0 Below low normal Venous HCO3 CY[facility] ([facility]) venous standard HCO3 17.9 mEq/L Venous Standard HCO3 [facility]) venous O2 saturation 99.3 % 60.0-80.0 Above high normal Venous O 2 Saturation [facility] ([facility]) ID Date Data Source [id number] 12/11/2020 04:56:00 PM EST CYNDI ([facility]) Name Value Range Interpretation Code Description Data Claribel rce(s) Supporting Document(s) phosphorus level 1.9 mg/dL 2.5-4.9 Below low normal Phosphorus Le karma CY[facility] ([facility]) ID Date Data Source [id number] 12/11/2020 04:56:00 PM EST CYNDI ([facility]) Name Value Range Interpretation Code Description Data Claribel rce(s) Supporting Document(s) glucose, fasting 169 mg/dL 70-100 Above high normal Glucose, Fas ting CY[facility]I ([facility]) creatinine for GFR 1.19 mg/dL 0.55-1.30 Creatinine for GF R [facility] ([facility]) blood urea nitrogen 16 mg/dL 7-18 Blood Urea Nitro gen CYNDI ([facility]) glomerular filtration rate >60 Below low normal Mariza merular Filtration Rate CYNDI ([facility]) sodium level 141 mEq/L 136-145 Sodium Level CYND[facility] ([facility]) potassium serum 3.5 mEq/L 3.5-5.1 Potassium Serum ATHE NA ([facility]) chloride level 112 mEq/L 98-107 Above high normal Chloride Level [facility] ([facility]) carbon dioxide level 18 mEq/L 21-32 Below low normal Carbon Di oxide Level CYNDI ([facility]) anion gap 11 mEq/L 8-16 Anion Gap [facility] ([facility]) calcium level 8.6 mg/dL 8.5-10.1 Calcium Level [facility] ( [facility]) ID Date Data Source [id number] 12/11/2020 04:56:00 PM EST CYNDI ([facility]) Name Value Range Interpretation Code Description Data Claribel rce(s) Supporting Document(s) venous pH 7.305 units 7.330-7.430 Below low normal Venous pH [facility] ([facility]) venous partial pressure O2 188.7 mmHg 30.0-50.0 Above high nor mal Venous Partial Pressure O2 CY[facility] ([facility]) venous partial pressure CO2 35.7 mmHg 38.0-50.0 Below low nor mal Venous Partial Pressure CO2 [facility] ([facility]) venous HCO3 17.4 mEq/L 23.0-27.0 Below low normal Venous HCO3 [facility] ([facility]) venous total CO2 18.5 mEq/L 24.0-28.0 Below low normal Venous Total CO2 [facility] ([facility]) venous base excess -2.0-2.0 Below low normal Venous Base Excess [facility] ([facility]) venous standard HCO3 17.9 mEq/L Venous Standard HCO3 [facility] ([facility]) venous O2 saturation 99.3 % 60.0-80.0 Above high normal Venous O 2 Saturation [facility] ([facility]) ID Date Data Source [id number] 12/11/2020 04:56:00 PM EST [facility] ([facility]) Name Value Range Interpretation Code Description Data Claribel rce(s) Supporting Document(s) phosphorus level 1.9 mg/dL 2.5-4.9 Below low normal Phosphorus Le karma [facility] ([facility]) ID Date Data Source [id number] 12/11/2020 04:56:00 PM EST [facility] ([facility]) Name Value Range Interpretation Code Description Data Claribel rce(s) Supporting Document(s) glucose, fasting 169 mg/dL 70-100 Above high normal Glucose, Fas ting [facility] ([facility]) creatinine for GFR 1.19 mg/dL 0.55-1.30 Creatinine for GF R [facility] ([facility]) blood urea nitrogen 16 mg/dL 7-18 Blood Urea Nitro gen CYNDI ([facility]) sodium level 141 mEq/L 136-145 Sodium Level CYNDI ([facility]) glomerular filtration rate >60 Below low normal Mariza merular Filtration Rate [facility] ([facility]) chloride level 112 mEq/L 98-107 Above high normal Chloride Level CYNDI ([facility]) potassium serum 3.5 mEq/L 3.5-5.1 Potassium Serum ATHE NA ([facility]) anion gap 11 mEq/L 8-16 Anion Gap [facility] ([facility]) carbon dioxide level 18 mEq/L 21-32 Below low normal Carbon Di oxide Level CYNDI ([facility]) calcium level 8.6 mg/dL 8.5-10.1 Calcium Level CYNDI ( [facility]) ID Date Data Source [id number] 12/11/2020 04:56:00 PM EST CYNDI ([facility]) Name Value Range Interpretation Code Description Data Claribel rce(s) Supporting Document(s) venous partial pressure CO2 35.7 mmHg 38.0-50.0 Below low nor mal Venous Partial Pressure CO2 [facility] ([facility]) venous pH 7.305 units 7.330-7.430 Below low normal Venous pH [facility] ([facility]) venous total CO2 18.5 mEq/L 24.0-28.0 Below low normal Venous Total CO2 CYND[facility] ([facility]) venous partial pressure O2 188.7 mmHg 30.0-50.0 Above high nor mal Venous Partial Pressure O2 CY[facility] ([facility]) venous HCO3 17.4 mEq/L 23.0-27.0 Below low normal Venous HCO3 [facility] ([facility]) venous standard HCO3 17.9 mEq/L Venous Standard HCO3 [facility] ([facility]) venous base excess -2.0-2.0 Below low normal Venous Base Excess [facility] ([facility]) venous O2 saturation 99.3 % 60.0-80.0 Above high normal Venous O 2 Saturation CY[facility] ([facility]) ID Date Data Source [id number] 12/11/2020 04:56:00 PM EST CYNDI ([facility]) Name Value Range Interpretation Code Description Data Claribel rce(s) Supporting Document(s) phosphorus level 1.9 mg/dL 2.5-4.9 Below low normal Phosphorus Le karma CY[facility] ([facility]) ID Date Data Source [id number] 12/11/2020 04:56:00 PM EST CYNDI ([facility]) Name Value Range Interpretation Code Description Data Claribel rce(s) Supporting Document(s) glucose, fasting 169 mg/dL 70-100 Above high normal Glucose, Fas ting CY[facility] ([facility]) blood urea nitrogen 16 mg/dL 7-18 Blood Urea Nitro gen CY[facility] ([facility]) creatinine for GFR 1.19 mg/dL 0.55-1.30 Creatinine for GF R CYNDI ([facility]) sodium level 141 mEq/L 136-145 Sodium Level CY[facility]I ([facility]) glomerular filtration rate >60 Below low normal Mariza merular Filtration Rate CY[facility] ([facility]) chloride level 112 mEq/L 98-107 Above high normal Chloride Level [facility] ([facility]) potassium serum 3.5 mEq/L 3.5-5.1 Potassium Serum ATHE NA ([facility]) carbon dioxide level 18 mEq/L 21-32 Below low normal Carbon Di oxide Level [facility] ([facility]) anion gap 11 mEq/L 8-16 Anion Gap [facility] ([facility]) calcium level 8.6 mg/dL 8.5-10.1 Calcium Level [facility] ( [facility]) ID Date Data Source [id number] 12/11/2020 04:56:00 PM LE HANNA ([facility]) Name Value Range Interpretation Code Description Data Claribel rce(s) Supporting Document(s) venous partial pressure CO2 35.7 mmHg 38.0-50.0 Below low nor mal Venous Partial Pressure CO2 [facility] ([facility]) venous pH 7.305 units 7.330-7.430 Below low normal Venous pH CY[facility] ([facility]) venous partial pressure O2 188.7 mmHg 30.0-50.0 Above high nor mal Venous Partial Pressure O2 [facility] ([facility]) venous total CO2 18.5 mEq/L 24.0-28.0 Below low normal Venous Total CO2 CYNDI ([facility]) venous HCO3 17.4 mEq/L 23.0-27.0 Below low normal Venous HCO3 CY[facility] ([facility]) venous standard HCO3 17.9 mEq/L Venous Standard HCO3 [facility] ([facility]) venous base excess -2.0-2.0 Below low normal Venous Base Excess CY[facility] ([facility]) venous O2 saturation 99.3 % 60.0-80.0 Above high normal Venous O 2 Saturation [facility] ([facility]) ID Date Data Source [id number] 12/11/2020 04:56:00 PM EST [facility] ([facility]) Name Value Range Interpretation Code Description Data Claribel rce(s) Supporting Document(s) phosphorus level 1.9 mg/dL 2.5-4.9 Below low normal Phosphorus Le karma CYNDI ([facility]) ID Date Data Source [id number] 12/11/2020 04:56:00 PM EST [facility] ([facility]) Name Value Range Interpretation Code Description Data Claribel rce(s) Supporting Document(s) glucose, fasting 169 mg/dL 70-100 Above high normal Glucose, Fas ting CYNDI ([facility]) creatinine for GFR 1.19 mg/dL 0.55-1.30 Creatinine for GF R CYNDI ([facility]) blood urea nitrogen 16 mg/dL 7-18 Blood Urea Nitro gen CYNDI ([facility]) glomerular filtration rate >60 Below low normal Mariza merular Filtration Rate CYNDI ([facility]) sodium level 141 mEq/L 136-145 Sodium Level CY[facility] ([facility]) potassium serum 3.5 mEq/L 3.5-5.1 Potassium Serum ATH NA ([facility]) chloride level 112 mEq/L 98-107 Above high normal Chloride Level CYNDI ([facility]) anion gap 11 mEq/L 8-16 Anion Gap [facility] ([facility]) carbon dioxide level 18 mEq/L 21-32 Below low normal Carbon Di oxide Level [facility]ILD ([facility]) calcium level 8.6 mg/dL 8.5-10.1 Calcium Level CYNDI ( [facility]) ID Date Data Source [id number] 12/11/2020 04:56:00 PM EST CYNDI ([facility]) Name Value Range Interpretation Code Description Data Claribel rce(s) Supporting Document(s) venous pH 7.305 units 7.330-7.430 Below low normal Venous pH CY[facility]I ([facility]) venous partial pressure CO2 35.7 mmHg 38.0-50.0 Below low nor mal Venous Partial Pressure CO2 CY[facility] ([facility]) venous partial pressure O2 188.7 mmHg 30.0-50.0 Above high nor mal Venous Partial Pressure O2 [facility] ([facility]) venous total CO2 18.5 mEq/L 24.0-28.0 Below low normal Venous Total CO2 [facility] ([facility]) venous HCO3 17.4 mEq/L 23.0-27.0 Below low normal Venous HCO3 [facility] ([facility]) venous standard HCO3 17.9 mEq/L Venous Standard HCO3 [facility] ([facility]) venous base excess -2.0-2.0 Below low normal Venous Base Excess [facility] ([facility]) venous O2 saturation 99.3 % 60.0-80.0 Above high normal Venous O 2 Saturation [facility] ([facility]) ID Date Data Source [id number] 12/11/2020 04:56:00 PM EST CYNDI ([facility]) Name Value Range Interpretation Code Description Data Claribel rce(s) Supporting Document(s) phosphorus level 1.9 mg/dL 2.5-4.9 Below low normal Phosphorus Le karma CY[facility] ([facility]) ID Date Data Source [id number] 12/11/2020 04:56:00 PM EST CYNDI ([facility]) Name Value Range Interpretation Code Description Data Claribel rce(s) Supporting Document(s) glucose, fasting 169 mg/dL 70-100 Above high normal Glucose, Fas ting CYNDI ([facility]) blood urea nitrogen 16 mg/dL 7-18 Blood Urea Nitro gen CY[facility]I ([facility]) creatinine for GFR 1.19 mg/dL 0.55-1.30 Creatinine for GF R CYNDI ([facility]) glomerular filtration rate >60 Below low normal Mariza merular Filtration Rate CYNDI ([facility]) sodium level 141 mEq/L 136-145 Sodium Level CYNDI ([facility]) potassium serum 3.5 mEq/L 3.5-5.1 Potassium Serum ATHE NA ([facility]) chloride level 112 mEq/L 98-107 Above high normal Chloride Level [facility] ([facility]) carbon dioxide level 18 mEq/L 21-32 Below low normal Carbon Di oxide Level [facility]ILD ([facility]) calcium level 8.6 mg/dL 8.5-10.1 Calcium Level [facility] ( [facility]) anion gap 11 mEq/L 8-16 Anion Gap [facility] ([facility]) ID Date Data Source [id number] 12/11/2020 04:56:00 PM EST [facility] ([facility]) Name Value Range Interpretation Code Description Data Claribel rce(s) Supporting Document(s) venous pH 7.305 units 7.330-7.430 Below low normal Venous pH [facility] ([facility]) venous partial pressure CO2 35.7 mmHg 38.0-50.0 Below low nor mal Venous Partial Pressure CO2 [facility] ([facility]) venous total CO2 18.5 mEq/L 24.0-28.0 Below low normal Venous Total CO2 [facility] ([facility]) venous partial pressure O2 188.7 mmHg 30.0-50.0 Above high nor mal Venous Partial Pressure O2 [facility]) venous HCO3 17.4 mEq/L 23.0-27.0 Below low normal Venous HCO3 [facility]) venous base excess -2.0-2.0 Below low normal Venous Base Excess [facility] ([facility]) venous O2 saturation 99.3 % 60.0-80.0 Above high normal Venous O 2 Saturation CYNDI ([facility]) venous standard HCO3 17.9 mEq/L Venous Standard HCO3 [facility] ([facility]) ID Date Data Source [id number] 12/11/2020 04:01:00 PM EST CYNDI ([facility]) Name Value Range Interpretation Code Description Data Claribel rce(s) Supporting Document(s) bedside glucose 160 mg/dL 70-105 Above high normal Bedside Gluco se CYNDI ([facility]) ID Date Data Source [id number] 12/11/2020 04:01:00 PM EST CYNDI ([facility]) Name Value Range Interpretation Code Description Data Claribel rce(s) Supporting Document(s) bedside glucose 160 mg/dL 70-105 Above high normal Bedside Gluco se [facility] ([facility]) ID Date Data Source [id number] 12/11/2020 04:01:00 PM EST CYNDI ([facility]) Name Value Range Interpretation Code Description Data Claribel rce(s) Supporting Document(s) bedside glucose 160 mg/dL 70-105 Above high normal Bedside Gluco se CYNDI ([facility]) ID Date Data Source [id number] 12/11/2020 04:01:00 PM EST CYNDI ([facility]) Name Value Range Interpretation Code Description Data Claribel rce(s) Supporting Document(s) bedside glucose 160 mg/dL 70-105 Above high normal Bedside Gluco se CYNDI ([facility]) ID Date Data Source [id number] 12/11/2020 04:01:00 PM EST CYNDI ([facility]) Name Value Range Interpretation Code Description Data Claribel rce(s) Supporting Document(s) bedside glucose 160 mg/dL 70-105 Above high normal [facility] [place] Date Data Source [id number] 12/11/2020 04:01:00 PM EST CYNDI ([facility]) Name Value Range Interpretation Code Description Data Claribel rce(s) Supporting Document(s) bedside glucose 160 mg/dL 70-105 Above high normal Bedside Gluco se CYNDI ([facility]) ID Date Data Source [id number] 12/11/2020 03:04:00 PM EST CYNDI ([facility]) Name Value Range Interpretation Code Description Data Claribel rce(s) Supporting Document(s) bedside glucose 194 mg/dL 70-105 Above high normal Bedside Gluco se CYNDI ([facility]) ID Date Data Source [id number] 12/11/2020 03:04:00 PM EST CYNDI ([facility]) Name Value Range Interpretation Code Description Data Claribel rce(s) Supporting Document(s) bedside glucose 194 mg/dL 70-105 Above high normal Bedside Gluco se CYNDI ([facility]) ID Date Data Source [id number] 12/11/2020 03:04:00 PM EST CYNDI ([facility]) Name Value Range Interpretation Code Description Data Claribel rce(s) Supporting Document(s) bedside glucose 194 mg/dL 70-105 Above high normal Bedside Gluco se CYNDI ([facility]) ID Date Data Source [id number] 12/11/2020 03:04:00 PM EST CYNDI ([facility]) Name Value Range Interpretation Code Description Data Claribel rce(s) Supporting Document(s) bedside glucose 194 mg/dL 70-105 Above high normal Bedside Gluco se CYNDI ([facility]) ID Date Data Source [id number] 12/11/2020 03:04:00 PM [place] [facility] [place] Name Value Range Interpretation Code Description Data Claribel rce(s) Supporting Document(s) bedside glucose 194 mg/dL 70-105 Above high normal Bedside Gluco se CYNDI ([facility]) ID Date Data Source [id number] 12/11/2020 03:04:00 PM EST CYNDI ([facility]) Name Value Range Interpretation Code Description Data Claribel rce(s) Supporting Document(s) bedside glucose 194 mg/dL 70-105 Above high normal Bedside Gluco se CYNDI ([facility]) ID Date Data Source [id number] 12/11/2020 02:11:00 PM EST CYNDI ([facility]) Name Value Range Interpretation Code Description Data Claribel rce(s) Supporting Document(s) bedside glucose 148 mg/dL 70-105 Above high normal Bedside Gluco se CYNDI ([facility]) ID Date Data Source [id number] 12/11/2020 02:11:00 PM EST CYNDI ([facility]) Name Value Range Interpretation Code Description Data Claribel rce(s) Supporting Document(s) bedside glucose 148 mg/dL 70-105 Above high normal Bedside Gluco se CYNDI ([facility]) ID Date Data Source [id number] 12/11/2020 02:11:00 PM EST CYNDI ([facility]) Name Value Range Interpretation Code Description Data Claribel rce(s) Supporting Document(s) bedside glucose 148 mg/dL 70-105 Above high normal Bedside Gluco se CYNDI ([facility]) ID Date Data Source [id number] 12/11/2020 02:11:00 PM EST CYNDI ([facility]) Name Value Range Interpretation Code Description Data Claribel rce(s) Supporting Document(s) bedside glucose 148 mg/dL 70-105 Above high normal [facility] [facility] [place] ID Date Data Source [id number] 12/11/2020 02:11:00 PM EST CYNDI ([facility]) Name Value Range Interpretation Code Description Data Claribel rce(s) Supporting Document(s) bedside glucose 148 mg/dL 70-105 Above high normal Bedside Gluco se [facility] ([facility]) ID Date Data Source [id number] 12/11/2020 02:11:00 PM EST [facility] ([facility]) Name Value Range Interpretation Code Description Data Claribel rce(s) Supporting Document(s) bedside glucose 148 mg/dL 70-105 Above high normal Bedside Gluco se [facility] ([facility]) ID Date Data Source [id number] 12/11/2020 01:15:00 PM EST [facility] ([facility]) Name Value Range Interpretation Code Description Data Claribel rce(s) Supporting Document(s) bedside glucose 157 mg/dL 70-105 Above high normal Bedside Gluco se [facility] ([facility]) ID Date Data Source [id number] 12/11/2020 01:15:00 PM EST [facility] ([facility]) Name Value Range Interpretation Code Description Data Claribel rce(s) Supporting Document(s) bedside glucose 157 mg/dL 70-105 Above high normal Bedside Gluco se [facility] ([facility]) ID Date Data Source [id number] 12/11/2020 01:15:00 PM EST [facility] ([facility]) Name Value Range Interpretation Code Description Data Claribel rce(s) Supporting Document(s) bedside glucose 157 mg/dL 70-105 Above high normal Bedside Gluco se [facility] ([facility]) ID Date Data Source [id number] 12/11/2020 01:15:00 PM EST [facility] ([facility]) Name Value Range Interpretation Code Description Data Claribel rce(s) Supporting Document(s) bedside glucose 157 mg/dL 70-105 Above high normal Bedside Gluco se [facility] ([facility]) ID Date Data Source [id number] 12/11/2020 01:15:00 PM EST [facility] ([facility]) Name Value Range Interpretation Code Description Data Claribel rce(s) Supporting Document(s) bedside glucose 157 mg/dL 70-105 Above high normal Bedside Gluco se [facility] ([facility]) ID Date Data Source [id number] 12/11/2020 01:15:00 PM EST [facility] ([facility]) Name Value Range Interpretation Code Description Data Claribel rce(s) Supporting Document(s) bedside glucose 157 mg/dL 70-105 Above high normal Bedside Gluco se [facility] ([facility]) ID Date Data Source [id number] 12/11/2020 01:05:00 PM EST [facility] ([facility]) Name Value Range Interpretation Code Description Data Claribel rce(s) Supporting Document(s) osmolality serum 306 mOsm/kg 275-295 Above high normal Osmolality Serum [facility] ([facility]) ID Date Data Source [id number] 12/11/2020 01:05:00 PM EST [facility] ([facility]) Name Value Range Interpretation Code Description Data Claribel rce(s) Supporting Document(s) phosphorus level 2.2 mg/dL 2.5-4.9 Below low normal Phosphorus Le karma [facility] ([facility]) ID Date Data Source [id number] 12/11/2020 01:05:00 PM EST [facility] ([facility]) Name Value Range Interpretation Code Description Data Claribel rce(s) Supporting Document(s) glucose, fasting 181 mg/dL 70-100 Above high normal Glucose, Fas ting [facility] ([facility]) blood urea nitrogen 18 mg/dL 7-18 Blood Urea Nitro gen [facility] ([facility]) creatinine for GFR 1.28 mg/dL 0.55-1.30 Creatinine for GF R [facility] ([facility]) glomerular filtration rate >60 Below low normal Mariza merular Filtration Rate [facility] ([facility]) sodium level 141 mEq/L 136-145 [facility] potassium serum 3.4 mEq/L 3.5-5.1 Below low normal Potassium Seru m [facility] ([facility]) chloride level 112 mEq/L 98-107 Above high normal Chloride Level [facility] ([facility]) carbon dioxide level 18 mEq/L 21-32 Below low normal Carbon Di oxide Level [facility] ([facility]) anion gap 11 mEq/L 8-16 Anion Gap [facility] ([facility]) calcium level 8.6 mg/dL 8.5-10.1 Calcium Level [facility] ( [facility]) ID Date Data Source [id number] 12/11/2020 01:05:00 PM EST [facility] ([facility]) Name Value Range Interpretation Code Description Data Claribel rce(s) Supporting Document(s) venous pH 7.238 units 7.330-7.430 Below low normal Venous pH [facility] ([facility]) venous partial pressure CO2 35.2 mmHg 38.0-50.0 Below low nor mal Venous Partial Pressure CO2 [facility] ([facility]) venous partial pressure O2 105.8 mmHg 30.0-50.0 Above high nor mal Venous Partial Pressure O2 [facility] ([facility]) venous total CO2 15.8 mEq/L 24.0-28.0 Below low normal Venous Total CO2 [facility] ([facility]) venous HCO3 14.7 mEq/L 23.0-27.0 Below low normal Venous HCO3 [facility] ([facility]) venous base excess -2.0-2.0 Below low normal Venous Base Excess [facility] ([facility]) venous standard HCO3 15.2 mEq/L Venous Standard HCO3 [facility] ([facility]) venous O2 saturation 97.8 % 60.0-80.0 Above high normal Venous O 2 Saturation [facility] ([facility]) ID Date Data Source [id number] 12/11/2020 01:05:00 PM EST [facility] ([facility]) Name Value Range Interpretation Code Description Data Claribel rce(s) Supporting Document(s) osmolality serum 306 mOsm/kg 275-295 Above high normal Osmolality Serum [facility] ([facility]) ID Date Data Source [id number] 12/11/2020 01:05:00 PM EST [facility] ([facility]) Name Value Range Interpretation Code Description Data Claribel rce(s) Supporting Document(s) phosphorus level 2.2 mg/dL 2.5-4.9 Below low normal Phosphorus Le karma [facility] ([facility]) ID Date Data Source [id number] 12/11/2020 01:05:00 PM EST [facility] ([facility]) Name Value Range Interpretation Code Description Data Claribel rce(s) Supporting Document(s) blood urea nitrogen 18 mg/dL 7-18 Blood Urea Nitro gen [facility] ([facility]) glucose, fasting 181 mg/dL 70-100 Above high normal Glucose, Fas ting [facility] ([facility]) glomerular filtration rate >60 Below low normal Mariza merular Filtration Rate [facility] ([facility]) creatinine for GFR 1.28 mg/dL 0.55-1.30 Creatinine for GF R [facility] ([facility]) sodium level 141 mEq/L 136-145 Sodium Level [facility] ([facility]) potassium serum 3.4 mEq/L 3.5-5.1 Below low normal Potassium Seru m [facility] ([facility]) chloride level 112 mEq/L 98-107 Above high normal Chloride Level [facility] ([facility]) carbon dioxide level 18 mEq/L 21-32 Below low normal Carbon Di oxide Level [facility] ([facility]) anion gap 11 mEq/L 8-16 Anion Gap [facility] ([facility]) calcium level 8.6 mg/dL 8.5-10.1 Calcium Level [facility] ( [facility]) ID Date Data Source [id number] 12/11/2020 01:05:00 PM EST [facility] ([facility]) Name Value Range Interpretation Code Description Data Claribel rce(s) Supporting Document(s) venous pH 7.238 units 7.330-7.430 Below low normal Venous pH [facility] ([facility]) venous partial pressure CO2 35.2 mmHg 38.0-50.0 Below low nor mal Venous Partial Pressure CO2 [facility] ([facility]) venous partial pressure O2 105.8 mmHg 30.0-50.0 Above high nor mal Venous Partial Pressure O2 [facility] ([facility]) venous total CO2 15.8 mEq/L 24.0-28.0 Below low normal Venous Total CO2 [facility] ([facility]) venous HCO3 14.7 mEq/L 23.0-27.0 Below low normal Venous HCO3 [facility] ([facility]) venous base excess -2.0-2.0 Below low normal Venous Base Excess [facility] ([facility]) venous standard HCO3 15.2 mEq/L Venous Standard HCO3 [facility] ([facility]) venous O2 saturation 97.8 % 60.0-80.0 Above high normal Venous O 2 Saturation [facility] ([facility]) ID Date Data Source [id number] 12/11/2020 01:05:00 PM EST [facility] ([facility]) Name Value Range Interpretation Code Description Data Claribel rce(s) Supporting Document(s) osmolality serum 306 mOsm/kg 275-295 Above high normal Osmolality Serum [facility] ([facility]) ID Date Data Source [id number] 12/11/2020 01:05:00 PM EST [facility] ([facility]) Name Value Range Interpretation Code Description Data Claribel rce(s) Supporting Document(s) phosphorus level 2.2 mg/dL 2.5-4.9 Below low normal Phosphorus Le karma [facility] ([facility]) ID Date Data Source [id number] 12/11/2020 01:05:00 PM EST [facility] ([facility]) Name Value Range Interpretation Code Description Data Claribel rce(s) Supporting Document(s) glucose, fasting 181 mg/dL 70-100 Above high normal Glucose, Fas ting [facility] ([facility]) blood urea nitrogen 18 mg/dL 7-18 Blood Urea Nitro gen [facility] ([facility]) glomerular filtration rate >60 Below low normal Mariza merular Filtration Rate [facility] ([facility]) creatinine for GFR 1.28 mg/dL 0.55-1.30 Creatinine for GF R [facility] ([facility]) sodium level 141 mEq/L 136-145 Sodium Level [facility] (No [facility]) potassium serum 3.4 mEq/L 3.5-5.1 Below low normal Potassium Seru m [facility] ([facility]) chloride level 112 mEq/L 98-107 Above high normal Chloride Level [facility] ([facility]) carbon dioxide level 18 mEq/L 21-32 Below low normal Carbon Di oxide Level [facility] ([facility]) anion gap 11 mEq/L 8-16 Anion Gap [facility] ([facility]) calcium level 8.6 mg/dL 8.5-10.1 Calcium Level [facility] ( [facility]) ID Date Data Source [id number] 12/11/2020 01:05:00 PM EST [facility] ([facility]) Name Value Range Interpretation Code Description Data Claribel rce(s) Supporting Document(s) venous pH 7.238 units 7.330-7.430 Below low normal Venous pH [facility] ([facility]) venous partial pressure CO2 35.2 mmHg 38.0-50.0 Below low nor mal Venous Partial Pressure CO2 [facility] ([facility]) venous total CO2 15.8 mEq/L 24.0-28.0 Below low normal Venous Total CO2 [facility] ([facility]) venous partial pressure O2 105.8 mmHg 30.0-50.0 Above high nor mal Venous Partial Pressure O2 [facility] ([facility]) venous HCO3 14.7 mEq/L 23.0-27.0 Below low normal Venous HCO3 [facility] ([facility]) venous base excess -2.0-2.0 Below low normal Venous Base Excess [facility] ([facility]) venous O2 saturation 97.8 % 60.0-80.0 Above high normal Venous O 2 Saturation [facility] ([facility]) venous standard HCO3 15.2 mEq/L Venous Standard HCO3 [facility] ([facility]) ID Date Data Source [id number] 12/11/2020 01:05:00 PM EST [facility] ([facility]) Name Value Range Interpretation Code Description Data Claribel rce(s) Supporting Document(s) osmolality serum 306 mOsm/kg 275-295 Above high normal Osmolality Serum [facility] ([facility]) ID Date Data Source [id number] 12/11/2020 01:05:00 PM EST [facility] ([facility]) Name Value Range Interpretation Code Description Data Claribel rce(s) Supporting Document(s) phosphorus level 2.2 mg/dL 2.5-4.9 Below low normal Phosphorus Le karma [facility] ([facility]) ID Date Data Source [id number] 12/11/2020 01:05:00 PM EST [facility] ([facility]) Name Value Range Interpretation Code Description Data Claribel rce(s) Supporting Document(s) glucose, fasting 181 mg/dL 70-100 Above high normal Glucose, Fas ting [facility] ([facility]) blood urea nitrogen 18 mg/dL 7-18 Blood Urea Nitro gen [facility] ([facility]) creatinine for GFR 1.28 mg/dL 0.55-1.30 Creatinine for GF R [facility] ([facility]) glomerular filtration rate >60 Below low normal Mariza merular Filtration Rate [facility] ([facility]) potassium serum 3.4 mEq/L 3.5-5.1 Below low normal Potassium Seru m [facility] ([facility]) sodium level 141 mEq/L 136-145 Sodium Level [facility] ([facility]) chloride level 112 mEq/L 98-107 Above high normal Chloride Level [facility] ([facility]) carbon dioxide level 18 mEq/L 21-32 Below low normal Carbon Di oxide Level [facility] ([facility]) anion gap 11 mEq/L 8-16 Anion Gap [facility] ([facility]) calcium level 8.6 mg/dL 8.5-10.1 Calcium Level [facility] ( [facility]) ID Date Data Source [id number] 12/11/2020 01:05:00 PM EST [facility] ([facility]) Name Value Range Interpretation Code Description Data Claribel rce(s) Supporting Document(s) venous pH 7.238 units 7.330-7.430 Below low normal Venous pH [facility] ([facility]) venous partial pressure CO2 35.2 mmHg 38.0-50.0 Below low nor mal Venous Partial Pressure CO2 [facility] ([facility]) venous partial pressure O2 105.8 mmHg 30.0-50.0 Above high nor mal Venous Partial Pressure O2 [facility] ([facility]) venous total CO2 15.8 mEq/L 24.0-28.0 Below low normal Venous Total CO2 [facility] ([facility]) venous HCO3 14.7 mEq/L 23.0-27.0 Below low normal Venous HCO3 [facility] ([facility]) venous base excess -2.0-2.0 Below low normal Venous Base Excess [facility] ([facility]) venous O2 saturation 97.8 % 60.0-80.0 Above high normal Venous O 2 Saturation [facility] ([facility]) venous standard HCO3 15.2 mEq/L Venous Standard HCO3 [facility]) ID Date Data Source [id number] 12/11/2020 01:05:00 PM EST [facility] ([facility]) Name Value Range Interpretation Code Description Data Claribel rce(s) Supporting Document(s) osmolality serum 306 mOsm/kg 275-295 Above high normal Osmolality Serum [facility] ([facility]) ID Date Data Source [id number] 12/11/2020 01:05:00 PM EST [facility] ([facility]) Name Value Range Interpretation Code Description Data Claribel rce(s) Supporting Document(s) phosphorus level 2.2 mg/dL 2.5-4.9 Below low normal Phosphorus Le karma [facility] ([facility]) ID Date Data Source [id number] 12/11/2020 01:05:00 PM EST [facility] ([facility]) Name Value Range Interpretation Code Description Data Claribel rce(s) Supporting Document(s) glucose, fasting 181 mg/dL 70-100 Above high normal Glucose, Fas ting [facility] ([facility]) blood urea nitrogen 18 mg/dL 7-18 Blood Urea Nitro gen [facility] ([facility]) creatinine for GFR 1.28 mg/dL 0.55-1.30 Creatinine for GF R [facility] ([facility]) sodium level 141 mEq/L 136-145 Sodium Level [facility] (No [facility]) glomerular filtration rate >60 Below low normal Mariza merular Filtration Rate [facility] ([facility]) potassium serum 3.4 mEq/L 3.5-5.1 Below low normal Potassium Seru m [facility] ([facility]) chloride level 112 mEq/L 98-107 Above high normal Chloride Level [facility] ([facility]) carbon dioxide level 18 mEq/L 21-32 Below low normal Carbon Di oxide Level [facility] ([facility]) anion gap 11 mEq/L 8-16 Anion Gap [facility] ([facility]) calcium level 8.6 mg/dL 8.5-10.1 Calcium Level [facility] ( [facility]) ID Date Data Source [id number] 12/11/2020 01:05:00 PM EST [facility] ([facility]) Name Value Range Interpretation Code Description Data Claribel rce(s) Supporting Document(s) venous pH 7.238 units 7.330-7.430 Below low normal Venous pH [facility] ([facility]) venous partial pressure CO2 35.2 mmHg 38.0-50.0 Below low nor mal Venous Partial Pressure CO2 [facility] ([facility]) venous partial pressure O2 105.8 mmHg 30.0-50.0 Above high nor mal Venous Partial Pressure O2 [facility] ([facility]) venous HCO3 14.7 mEq/L 23.0-27.0 Below low normal Venous HCO3 [facility] ([facility]) venous total CO2 15.8 mEq/L 24.0-28.0 Below low normal Venous Total CO2 [facility] ([facility]) venous base excess -2.0-2.0 Below low normal Venous Base Excess [facility] ([facility]) venous standard HCO3 15.2 mEq/L Venous Standard HCO3 [facility] ([facility]) venous O2 saturation 97.8 % 60.0-80.0 Above high normal Venous O 2 Saturation [facility] ([facility]) ID Date Data Source [id number] 12/11/2020 01:05:00 PM EST [facility] ([facility]) Name Value Range Interpretation Code Description Data Claribel rce(s) Supporting Document(s) osmolality serum 306 mOsm/kg 275-295 Above high normal Osmolality Serum [facility] ([facility]) ID Date Data Source [id number] 12/11/2020 01:05:00 PM EST [facility] ([facility]) Name Value Range Interpretation Code Description Data Claribel rce(s) Supporting Document(s) phosphorus level 2.2 mg/dL 2.5-4.9 Below low normal Phosphorus Le karma [facility] ([facility]) ID Date Data Source [id number] 12/11/2020 01:05:00 PM EST [facility] ([facility]) Name Value Range Interpretation Code Description Data Claribel rce(s) Supporting Document(s) blood urea nitrogen 18 mg/dL 7-18 Blood Urea Nitro gen [facility] ([facility]) glucose, fasting 181 mg/dL 70-100 Above high normal Glucose, Fas ting [facility] ([facility]) creatinine for GFR 1.28 mg/dL 0.55-1.30 Creatinine for GF R [facility] ([facility]) glomerular filtration rate >60 Below low normal Mariza merular Filtration Rate [facility] ([facility]) sodium level 141 mEq/L 136-145 Sodium Level [facility] ([facility]) chloride level 112 mEq/L 98-107 Above high normal Chloride Level [facility] ([facility]) potassium serum 3.4 mEq/L 3.5-5.1 Below low normal Potassium Seru m [facility] ([facility]) anion gap 11 mEq/L 8-16 Anion Gap [facility] ([facility]) carbon dioxide level 18 mEq/L 21-32 Below low normal Carbon Di oxide Level [facility] ([facility]) calcium level 8.6 mg/dL 8.5-10.1 Calcium Level [facility] ( [facility]) ID Date Data Source [id number] 12/11/2020 01:05:00 PM EST [facility] ([facility]) Name Value Range Interpretation Code Description Data Claribel rce(s) Supporting Document(s) venous pH 7.238 units 7.330-7.430 Below low normal Venous pH [facility] ([facility]) venous partial pressure CO2 35.2 mmHg 38.0-50.0 Below low nor mal Venous Partial Pressure CO2 [facility] ([facility]) venous partial pressure O2 105.8 mmHg 30.0-50.0 Above high nor mal Venous Partial Pressure O2 [facility] ([facility]) venous total CO2 15.8 mEq/L 24.0-28.0 Below low normal Venous Total CO2 [facility] ([facility]) venous base excess -2.0-2.0 Below low normal Venous Base Excess [facility] ([facility]) venous HCO3 14.7 mEq/L 23.0-27.0 Below low normal Venous HCO3 [facility] ([facility]) venous standard HCO3 15.2 mEq/L Venous Standard HCO3 [facility]) venous O2 saturation 97.8 % 60.0-80.0 Above high normal Venous O 2 Saturation [facility]) ID Date Data Source [id number] 12/11/2020 12:13:00 PM EST [facility] ([facility]) Name Value Range Interpretation Code Description Data Claribel rce(s) Supporting Document(s) bedside glucose 162 mg/dL 70-105 Above high normal Bedside Gluco se [facility] ([facility]) ID Date Data Source [id number] 12/11/2020 12:13:00 PM EST [facility]) Name Value Range Interpretation Code Description Data Claribel rce(s) Supporting Document(s) bedside glucose 162 mg/dL 70-105 Above high normal Bedside Gluco se [facility] ([facility]) ID Date Data Source [id number] 12/11/2020 12:13:00 PM EST [facility]) Name Value Range Interpretation Code Description Data Claribel rce(s) Supporting Document(s) bedside glucose 162 mg/dL 70-105 Above high normal Bedside Gluco se [facility]) ID Date Data Source [id number] 12/11/2020 12:13:00 PM EST [facility]) Name Value Range Interpretation Code Description Data Claribel rce(s) Supporting Document(s) bedside glucose 162 mg/dL 70-105 Above high normal Bedside Gluco se [facility] ([facility]) ID Date Data Source [id number] 12/11/2020 12:13:00 [facility] [place] [facility] [place] Name Value Range Interpretation Code Description Data Claribel rce(s) Supporting Document(s) bedside glucose 162 mg/dL 70-105 Above high normal [facility]side [facility] se [facility] [place] ID Date Data Source [id number] 12/11/2020 12:13:00 PM EST [facility] ([facility]) Name Value Range Interpretation Code Description Data Claribel rce(s) Supporting Document(s) bedside glucose 162 mg/dL 70-105 Above high normal Bedside Gluco se [facility] ([facility]) ID Date Data Source [id number] 12/11/2020 11:07:00 AM EST [facility] ([facility]) Name Value Range Interpretation Code Description Data Claribel rce(s) Supporting Document(s) bedside glucose 146 mg/dL 70-105 Above high normal Bedside Gluco se [facility] ([facility]) ID Date Data Source [id number] 12/11/2020 11:07:00 AM EST [facility] ([facility]) Name Value Range Interpretation Code Description Data Claribel rce(s) Supporting Document(s) bedside glucose 146 mg/dL 70-105 Above high normal Bedside Gluco se [facility] ([facility]) ID Date Data Source [id number] 12/11/2020 11:07:00 AM EST [facility] ([facility]) Name Value Range Interpretation Code Description Data Claribel rce(s) Supporting Document(s) bedside glucose 146 mg/dL 70-105 Above high normal Bedside Gluco se [facility] ([facility]) ID Date Data Source [id number] 12/11/2020 11:07:00 AM EST [facility] ([facility]) Name Value Range Interpretation Code Description Data Claribel rce(s) Supporting Document(s) bedside glucose 146 mg/dL 70-105 Above high normal Bedside Gluco se CYNDI ([facility]) ID Date Data Source [id number] 12/11/2020 11:07:00 AM EST CYNDI ([facility]) Name Value Range Interpretation Code Description Data Claribel rce(s) Supporting Document(s) bedside glucose 146 mg/dL 70-105 Above high normal Bedside Gluco se CYNDI ([facility]) ID Date Data Source [id number] 12/11/2020 11:07:00 AM EST CYNDI ([facility]) Name Value Range Interpretation Code Description Data Claribel rce(s) Supporting Document(s) bedside glucose 146 mg/dL 70-105 Above high normal Bedside Gluco se CYNDI ([facility]) ID Date Data Source [id number] 12/11/2020 10:19:00 AM EST [facility]) Name Value Range Interpretation Code Description Data Claribel rce(s) Supporting Document(s) bedside glucose 159 mg/dL 70-105 Above high normal Bedside Gluco se [facility]) ID Date Data Source [id number] 12/11/2020 10:19:00 AM EST [facility]) Name Value Range Interpretation Code Description Data Claribel rce(s) Supporting Document(s) bedside glucose 159 mg/dL 70-105 Above high normal Bedside Gluco se CYNDI ([facility]) ID Date Data Source [id number] 12/11/2020 10:19:00 [facility] Name Value Range Interpretation Code Description Data Claribel rce(s) Supporting Document(s) bedside glucose 159 mg/dL 70-105 Above high normal Bedside Gluco se [facility] ([facility]) ID Date Data Source [id number] 12/11/2020 10:19:00 AM [place] [facility] [place] Name Value Range Interpretation Code Description Data Claribel rce(s) Supporting Document(s) bedside glucose 159 mg/dL 70-105 Above high normal [facility] [place] ID Date Data Source [id number] 12/11/2020 10:19:00 AM EST CYND[facility] ([facility]) Name Value Range Interpretation Code Description Data Claribel rce(s) Supporting Document(s) bedside glucose 159 mg/dL 70-105 Above high normal Bedside Gluco se [facility] ([facility]) ID Date Data Source [id number] 12/11/2020 10:19:00 AM EST [facility] ([facility]) Name Value Range Interpretation Code Description Data Claribel rce(s) Supporting Document(s) bedside glucose 159 mg/dL 70-105 Above high normal Bedside Gluco se [facility] ([facility]) ID Date Data Source [id number] 12/11/2020 09:01:00 AM EST CYND[facility] ([facility]) Name Value Range Interpretation Code Description Data Claribel rce(s) Supporting Document(s) bedside glucose 189 mg/dL 70-105 Above high normal Bedside Gluco se [facility] ([facility]) ID Date Data Source [id number] 12/11/2020 09:01:00 AM EST [facility]ND[facility] ([facility]) Name Value Range Interpretation Code Description Data Claribel rce(s) Supporting Document(s) bedside glucose 189 mg/dL 70-105 Above high normal Bedside Gluco se [facility] ([facility]) ID Date Data Source [id number] 12/11/2020 09:01:00 AM EST [facility] ([facility]) Name Value Range Interpretation Code Description Data Claribel rce(s) Supporting Document(s) bedside glucose 189 mg/dL 70-105 Above high normal Bedside Gluco se [facility] ([facility]) ID Date Data Source [id number] 12/11/2020 09:01:00 AM EST [facility] ([facility]) Name Value Range Interpretation Code Description Data Claribel rce(s) Supporting Document(s) bedside glucose 189 mg/dL 70-105 Above high normal Bedside Gluco se [facility] ([facility]) ID Date Data Source [id number] 12/11/2020 09:01:00 AM EST [facility] ([facility]) Name Value Range Interpretation Code Description Data Claribel rce(s) Supporting Document(s) bedside glucose 189 mg/dL 70-105 Above high normal Bedside Gluco se [facility] ([facility]) ID Date Data Source [id number] 12/11/2020 09:01:00 AM EST [facility] [place] Name Value Range Interpretation Code Description Data Claribel rce(s) Supporting Document(s) bedside glucose 189 mg/dL 70-105 Above high normal Bedside Gluco se [facility]) ID Date Data Source [id number] 12/11/2020 08:13:00 AM EST [facility]) Name Value Range Interpretation Code Description Data Claribel rce(s) Supporting Document(s) bedside glucose 168 mg/dL 70-105 Above high normal [facility] [place] ID Date Data Source [id number] 12/11/2020 08:13:00 AM EST CYND[facility]) Name Value Range Interpretation Code Description Data Claribel rce(s) Supporting Document(s) bedside glucose 168 mg/dL 70-105 Above high normal [facility]side Gluc[facility] se [facility] [place] ID Date Data Source [id number] 12/11/2020 08:13:00 AM EST CYND[facility]) Name Value Range Interpretation Code Description Data Claribel rce(s) Supporting Document(s) bedside glucose 168 mg/dL 70-105 Above high normal [facility] se [facility] [place] ID Date Data Source [id number] 12/11/2020 08:13:00 AM EST CYND[facility] ([facility]) Name Value Range Interpretation Code Description Data Claribel rce(s) Supporting Document(s) bedside glucose 168 mg/dL 70-105 Above high normal Bedside Gluco se [facility] ([facility]) ID Date Data Source [id number] 12/11/2020 08:13:00 AM EST [facility] ([facility]) Name Value Range Interpretation Code Description Data Claribel rce(s) Supporting Document(s) bedside glucose 168 mg/dL 70-105 Above high normal Bedside Gluco se [facility] ([facility]) ID Date Data Source [id number] 12/11/2020 08:13:00 AM EST [facility] ([facility]) Name Value Range Interpretation Code Description Data Claribel rce(s) Supporting Document(s) bedside glucose 168 mg/dL 70-105 Above high normal Bedside Gluco se [facility] ([facility]) ID Date Data Source [id number] 12/11/2020 07:57:00 AM EST CY[facility] ([facility]) Name Value Range Interpretation Code Description Data Claribel rce(s) Supporting Document(s) phosphorus level 1.6 mg/dL 2.5-4.9 Below low normal Phosphorus Le karma CYND[facility] ([facility]) ID Date Data Source [id number] 12/11/2020 07:57:00 AM EST CYND[facility] ([facility]) Name Value Range Interpretation Code Description Data Claribel rce(s) Supporting Document(s) glucose, fasting 178 mg/dL 70-100 Above high normal Glucose, Fas ting [facility] ([facility]) blood urea nitrogen 22 mg/dL 7-18 Above high normal Blood Ure a Nitrogen [facility] ([facility]) creatinine for GFR 1.43 mg/dL 0.55-1.30 Above high normal Creatinine for GFR CY[facility] ([facility]) glomerular filtration rate >60 Below low normal Mariza merular Filtration Rate CY[facility]I ([facility]) sodium level 141 mEq/L 136-145 Sodium Level [facility] ([facility]) chloride level 112 mEq/L 98-107 Above high normal Chloride Level CY[facility] ([facility]) potassium serum 3.7 mEq/L 3.5-5.1 Potassium Serum ATHE NA ([facility]) carbon dioxide level 17 mEq/L 21-32 Below low normal Carbon Di oxide Level CY[facility]I ([facility]) anion gap 12 mEq/L 8-16 Anion Gap [facility] ([facility]) calcium level 8.8 mg/dL 8.5-10.1 Calcium Level [facility] ( [facility]) ID Date Data Source [id number] 12/11/2020 07:57:00 AM EST [facility] ([facility]) Name Value Range Interpretation Code Description Data Claribel rce(s) Supporting Document(s) phosphorus level 1.6 mg/dL 2.5-4.9 Below low normal Phosphorus Le karma CY[facility] ([facility]) ID Date Data Source [id number] 12/11/2020 07:57:00 AM EST [facility]) Name Value Range Interpretation Code Description Data Claribel rce(s) Supporting Document(s) glucose, fasting 178 mg/dL 70-100 Above high normal Glucose, Fas ting CY[facility] ([facility]) blood urea nitrogen 22 mg/dL 7-18 Above high normal Blood Ure a Nitrogen CY[facility] ([facility]) creatinine for GFR 1.43 mg/dL 0.55-1.30 Above high normal Creatinine for GFR CY[facility] ([facility]) glomerular filtration rate >60 Below low normal Mariza merular Filtration Rate CY[facility] ([facility]) potassium serum 3.7 mEq/L 3.5-5.1 Potassium Serum ATHE NA ([facility]) sodium level 141 mEq/L 136-145 Sodium Level [facility] ([facility]) chloride level 112 mEq/L 98-107 Above high normal Chloride Level CY[facility]I ([facility]) carbon dioxide level 17 mEq/L 21-32 Below low normal Carbon Di oxide Level CY[facility]I ([facility]) anion gap 12 mEq/L 8-16 Anion Gap [facility] ([facility]) calcium level 8.8 mg/dL 8.5-10.1 Calcium Level [facility] ( [facility]) ID Date Data Source [id number] 12/11/2020 07:57:00 AM EST [facility] ([facility]) Name Value Range Interpretation Code Description Data Claribel rce(s) Supporting Document(s) phosphorus level 1.6 mg/dL 2.5-4.9 Below low normal Phosphorus Le karma [facility] ([facility]) ID Date Data Source [id number] 12/11/2020 07:57:00 AM EST [facility] ([facility]) Name Value Range Interpretation Code Description Data Claribel rce(s) Supporting Document(s) glucose, fasting 178 mg/dL 70-100 Above high normal Glucose, Fas ting CY[facility] ([facility]) creatinine for GFR 1.43 mg/dL 0.55-1.30 Above high normal Creatinine for GFR [facility] ([facility]) blood urea nitrogen 22 mg/dL 7-18 Above high normal Blood Ure a Nitrogen CY[facility] ([facility]) glomerular filtration rate >60 Below low normal Mariza merular Filtration Rate CY[facility] ([facility]) sodium level 141 mEq/L 136-145 Sodium Level [facility] ([facility]) potassium serum 3.7 mEq/L 3.5-5.1 Potassium Serum ATHE NA ([facility]) chloride level 112 mEq/L 98-107 Above high normal Chloride Level CY[facility] ([facility]) carbon dioxide level 17 mEq/L 21-32 Below low normal Carbon Di oxide Level CY[facility]I ([facility]) calcium level 8.8 mg/dL 8.5-10.1 Calcium Level CYNDI ( [facility]) anion gap 12 mEq/L 8-16 Anion Gap [facility] ([facility]) ID Date Data Source [id number] 12/11/2020 07:57:00 AM EST CYND[facility] ([facility]) Name Value Range Interpretation Code Description Data Claribel rce(s) Supporting Document(s) phosphorus level 1.6 mg/dL 2.5-4.9 Below low normal Phosphorus Le karma [facility] ([facility]) ID Date Data Source [id number] 12/11/2020 07:57:00 AM EST CY[facility] ([facility]) Name Value Range Interpretation Code Description Data Claribel rce(s) Supporting Document(s) glucose, fasting 178 mg/dL 70-100 Above high normal Glucose, Fas ting CY[facility] ([facility]) blood urea nitrogen 22 mg/dL 7-18 Above high normal Blood Ure a Nitrogen [facility] ([facility]) creatinine for GFR 1.43 mg/dL 0.55-1.30 Above high normal Creatinine for GFR [facility] ([facility]) glomerular filtration rate >60 Below low normal Mariza merular Filtration Rate CY[facility] ([facility]) sodium level 141 mEq/L 136-145 Sodium Level [facility] ([facility]) potassium serum 3.7 mEq/L 3.5-5.1 Potassium Serum ATHE NA ([facility]) chloride level 112 mEq/L 98-107 Above high normal Chloride Level [facility] ([facility]) carbon dioxide level 17 mEq/L 21-32 Below low normal Carbon Di oxide Level CY[facility]I ([facility]) anion gap 12 mEq/L 8-16 Anion Gap [facility] ([facility]) calcium level 8.8 mg/dL 8.5-10.1 Calcium Level CYNDI ( [facility]) ID Date Data Source [id number] 12/11/2020 07:57:00 AM EST CYNDI ([facility]) Name Value Range Interpretation Code Description Data Claribel rce(s) Supporting Document(s) phosphorus level 1.6 mg/dL 2.5-4.9 Below low normal Phosphorus Le karma [facility] ([facility]) ID Date Data Source [id number] 12/11/2020 07:57:00 AM EST [facility] ([facility]) Name Value Range Interpretation Code Description Data Claribel rce(s) Supporting Document(s) glucose, fasting 178 mg/dL 70-100 Above high normal Glucose, Fas ting CY[facility] ([facility]) creatinine for GFR 1.43 mg/dL 0.55-1.30 Above high normal Creatinine for GFR CY[facility] ([facility]) blood urea nitrogen 22 mg/dL 7-18 Above high normal Blood Ure a Nitrogen [facility] ([facility]) glomerular filtration rate >60 Below low normal Mariza merular Filtration Rate CY[facility] ([facility]) sodium level 141 mEq/L 136-145 Sodium Level [facility] ([facility]) chloride level 112 mEq/L 98-107 Above high normal Chloride Level [facility] ([facility]) potassium serum 3.7 mEq/L 3.5-5.1 Potassium Serum ATHE NA ([facility]) carbon dioxide level 17 mEq/L 21-32 Below low normal Carbon Di oxide Level CY[facility]I ([facility]) anion gap 12 mEq/L 8-16 Anion Gap [facility] ([facility]) calcium level 8.8 mg/dL 8.5-10.1 Calcium Level CYNDI ( [facility]) ID Date Data Source [id number] 12/11/2020 07:57:00 AM EST CYNDI ([facility]) Name Value Range Interpretation Code Description Data Claribel rce(s) Supporting Document(s) phosphorus level 1.6 mg/dL 2.5-4.9 Below low normal Phosphorus Le karma [facility] ([facility]) ID Date Data Source [id number] 12/11/2020 07:57:00 AM EST [facility] ([facility]) Name Value Range Interpretation Code Description Data Claribel rce(s) Supporting Document(s) glucose, fasting 178 mg/dL 70-100 Above high normal Glucose, Fas ting [facility] ([facility]) creatinine for GFR 1.43 mg/dL 0.55-1.30 Above high normal Creatinine for GFR [facility] ([facility]) blood urea nitrogen 22 mg/dL 7-18 Above high normal Blood Ure a Nitrogen [facility] ([facility]) sodium level 141 mEq/L 136-145 Sodium Level [facility] ([facility]) glomerular filtration rate >60 Below low normal Mariza merular Filtration Rate CY[facility]I ([facility]) potassium serum 3.7 mEq/L 3.5-5.1 Potassium Serum ATH NA [facility]) chloride level 112 mEq/L 98-107 Above high normal Chloride Level [facility] ([facility]) anion gap 12 mEq/L 8-16 Anion Gap [facility] ([facility]) carbon dioxide level 17 mEq/L 21-32 Below low normal Carbon Di oxide Level [facility] ([facility]) calcium level 8.8 mg/dL 8.5-10.1 Calcium Level [facility] ( [facility]) ID Date Data Source [id number] 12/11/2020 07:56:00 AM EST [facility]) Name Value Range Interpretation Code Description Data Claribel rce(s) Supporting Document(s) venous pH 7.210 units 7.330-7.430 Below low normal Venous pH [facility]) venous partial pressure O2 99.3 mmHg 30.0-50.0 Above high nor mal Venous Partial Pressure O2 [facility]) venous partial pressure CO2 34.6 mmHg 38.0-50.0 Below low nor mal Venous Partial Pressure CO2 [facility] [place] venous total CO2 14.6 mEq/L 24.0-28.0 Below low normal Venous Total CO2 [facility]) venous HCO3 13.5 mEq/L 23.0-27.0 Below low normal Venous HCO3 [facility]) venous base excess -2.0-2.0 Below low normal Venous Base Excess [facility] ([facility]) venous standard HCO3 14.2 mEq/L Venous Standard HCO3 CYNDI ([facility]) venous O2 saturation 97.8 % 60.0-80.0 Above high normal Venous O 2 Saturation CY[facility] ([facility]) ID Date Data Source [id number] 12/11/2020 07:56:00 AM EST CYNDI ([facility]) Name Value Range Interpretation Code Description Data Claribel rce(s) Supporting Document(s) venous pH 7.210 units 7.330-7.430 Below low normal Venous pH [facility] ([facility]) venous partial pressure CO2 34.6 mmHg 38.0-50.0 Below low nor mal Venous Partial Pressure CO2 CY[facility] ([facility]) venous partial pressure O2 99.3 mmHg 30.0-50.0 Above high nor mal Venous Partial Pressure O2 [facility] ([facility]) venous total CO2 14.6 mEq/L 24.0-28.0 Below low normal Venous Total CO2 [facility] ([facility]) venous HCO3 13.5 mEq/L 23.0-27.0 Below low normal Venous HCO3 [facility] ([facility]) venous base excess -2.0-2.0 Below low normal Venous Base Excess [facility] ([facility]) venous standard HCO3 14.2 mEq/L Venous Standard HCO3 [facility] ([facility]) venous O2 saturation 97.8 % 60.0-80.0 Above high normal Venous O 2 Saturation [facility] ([facility]) ID Date Data Source [id number] 12/11/2020 07:56:00 AM EST [facility] ([facility]) Name Value Range Interpretation Code Description Data Claribel rce(s) Supporting Document(s) venous pH 7.210 units 7.330-7.430 Below low normal Venous pH [facility] ([facility]) venous partial pressure CO2 34.6 mmHg 38.0-50.0 Below low nor mal Venous Partial Pressure CO2 [facility] ([facility]) venous partial pressure O2 99.3 mmHg 30.0-50.0 Above high nor mal Venous Partial Pressure O2 [facility] ([facility]) venous total CO2 14.6 mEq/L 24.0-28.0 Below low normal Venous Total CO2 [facility] ([facility]) venous HCO3 13.5 mEq/L 23.0-27.0 Below low normal Venous HCO3 [facility] ([facility]) venous standard HCO3 14.2 mEq/L Venous Standard HCO3 [facility] ([facility]) venous base excess -2.0-2.0 Below low normal Venous Base Excess [facility] ([facility]) venous O2 saturation 97.8 % 60.0-80.0 Above high normal Venous O 2 Saturation [facility] ([facility]) ID Date Data Source [id number] 12/11/2020 07:56:00 AM EST CY[facility]I ([facility]) Name Value Range Interpretation Code Description Data Claribel rce(s) Supporting Document(s) venous partial pressure CO2 34.6 mmHg 38.0-50.0 Below low nor mal Venous Partial Pressure CO2 [facility] ([facility]) venous pH 7.210 units 7.330-7.430 Below low normal Venous pH [facility] ([facility]) venous total CO2 14.6 mEq/L 24.0-28.0 Below low normal Venous Total CO2 [facility] ([facility]) venous partial pressure O2 99.3 mmHg 30.0-50.0 Above high nor mal Venous Partial Pressure O2 [facility] ([facility]) venous HCO3 13.5 mEq/L 23.0-27.0 Below low normal Venous HCO3 [facility] ([facility]) venous base excess -2.0-2.0 Below low normal Venous Base Excess [facility] ([facility]) venous standard HCO3 14.2 mEq/L Venous Standard HCO3 [facility] ([facility]) venous O2 saturation 97.8 % 60.0-80.0 Above high normal Venous O 2 Saturation [facility] ([facility]) ID Date Data Source [id number] 12/11/2020 07:56:00 AM EST CYNDI ([facility]) Name Value Range Interpretation Code Description Data Claribel rce(s) Supporting Document(s) venous pH 7.210 units 7.330-7.430 Below low normal Venous pH CY[facility]I ([facility]) venous partial pressure O2 99.3 mmHg 30.0-50.0 Above high nor mal Venous Partial Pressure O2 [facility] ([facility]) venous partial pressure CO2 34.6 mmHg 38.0-50.0 Below low nor mal Venous Partial Pressure CO2 [facility] ([facility]) venous total CO2 14.6 mEq/L 24.0-28.0 Below low normal Venous Total CO2 [facility] ([facility]) venous base excess -2.0-2.0 Below low normal Venous Base Excess [facility] ([facility]) venous HCO3 13.5 mEq/L 23.0-27.0 Below low normal Venous HCO3 [facility] ([facility]) venous standard HCO3 14.2 mEq/L Venous Standard HCO3 [facility] ([facility]) venous O2 saturation 97.8 % 60.0-80.0 Above high normal Venous O 2 Saturation [facility] ([facility]) ID Date Data Source [id number] 12/11/2020 07:56:00 AM EST [facility] ([facility]) Name Value Range Interpretation Code Description Data Claribel rce(s) Supporting Document(s) venous pH 7.210 units 7.330-7.430 Below low normal Venous pH CY[facility]I ([facility]) venous partial pressure O2 99.3 mmHg 30.0-50.0 Above high nor mal Venous Partial Pressure O2 [facility] ([facility]) venous partial pressure CO2 34.6 mmHg 38.0-50.0 Below low nor mal Venous Partial Pressure CO2 [facility] ([facility]) venous total CO2 14.6 mEq/L 24.0-28.0 Below low normal Venous Total CO2 [facility] ([facility]) venous base excess -2.0-2.0 Below low normal Venous Base Excess [facility] ([facility]) venous HCO3 13.5 mEq/L 23.0-27.0 Below low normal Venous HCO3 [facility] ([facility]) venous O2 saturation 97.8 % 60.0-80.0 Above high normal Venous O 2 Saturation [facility] ([facility]) venous standard HCO3 14.2 mEq/L Venous Standard HCO3 [facility] ([facility]) ID Date Data Source [id number] 12/11/2020 07:13:00 AM EST CYNDI ([facility]) Name Value Range Interpretation Code Description Data Claribel rce(s) Supporting Document(s) bedside glucose 168 mg/dL 70-105 Above high normal Bedside Gluco se CYNDI ([facility]) ID Date Data Source [id number] 12/11/2020 07:13:00 AM EST CYNDI ([facility]) Name Value Range Interpretation Code Description Data Claribel rce(s) Supporting Document(s) bedside glucose 168 mg/dL 70-105 Above high normal Bedside Gluco se [facility] ([facility]) ID Date Data Source [id number] 12/11/2020 07:13:00 AM EST CYNDI ([facility]) Name Value Range Interpretation Code Description Data Claribel rce(s) Supporting Document(s) bedside glucose 168 mg/dL 70-105 Above high normal Bedside Gluco se [facility]I ([facility]) ID Date Data Source [id number] 12/11/2020 07:13:00 AM [place] [facility] [place] Name Value Range Interpretation Code Description Data Claribel rce(s) Supporting Document(s) bedside glucose 168 mg/dL 70-105 Above high normal Bedside Gluco se CY[facility]I ([facility]) ID Date Data Source [id number] 12/11/2020 07:13:00 AM EST CYNDI [facility]) Name Value Range Interpretation Code Description Data Claribel rce(s) Supporting Document(s) bedside glucose 168 mg/dL 70-105 Above high normal [facility] [place] Date Data Source [id number] 12/11/2020 07:13:00 AM EST CYNDI ([facility]) Name Value Range Interpretation Code Description Data Claribel rce(s) Supporting Document(s) bedside glucose 168 mg/dL 70-105 Above high normal Bedside Gluco se CYNDI ([facility]) ID Date Data Source [id number] 12/11/2020 06:29:00 AM EST CYNDI ([facility]) Name Value Range Interpretation Code Description Data Claribel rce(s) Supporting Document(s) bedside glucose 172 mg/dL 70-105 Above high normal Bedside Gluco se ROTHSCHILD ([facility]) ID Date Data Source [id number] 12/11/2020 06:29:00 AM EST CYNDI ([facility]) Name Value Range Interpretation Code Description Data Claribel rce(s) Supporting Document(s) bedside glucose 172 mg/dL 70-105 Above high normal Bedside Gluco se CYNDI ([facility]) ID Date Data Source [id number] 12/11/2020 06:29:00 AM EST CYNDI ([facility]) Name Value Range Interpretation Code Description Data Claribel rce(s) Supporting Document(s) bedside glucose 172 mg/dL 70-105 Above high normal Bedside Gluco se CYNDI ([facility]) ID Date Data Source [id number] 12/11/2020 06:29:00 AM EST CYNDI ([facility]) Name Value Range Interpretation Code Description Data Claribel rce(s) Supporting Document(s) bedside glucose 172 mg/dL 70-105 Above high normal Bedside Gluco se CYNDI ([facility]) ID Date Data Source [id number] 12/11/2020 06:29:00 AM [place] [facility] [place] Name Value Range Interpretation Code Description Data Claribel rce(s) Supporting Document(s) bedside glucose 172 mg/dL 70-105 Above high normal Bedside Gluco se CYNDI ([facility]) ID Date Data Source [id number] 12/11/2020 06:29:00 AM EST CYNDI ([facility]) Name Value Range Interpretation Code Description Data Claribel rce(s) Supporting Document(s) bedside glucose 172 mg/dL 70-105 Above high normal Bedside Gluco se CYNDI ([facility]) ID Date Data Source [id number] 12/11/2020 06:26:00 AM EST [facility]OT[facility]ILD ([facility]) Name Value Range Interpretation Code Description Data Claribel rce(s) Supporting Document(s) bedside glucose 116 mg/dL 70-105 Above high normal Bedside Gluco se [facility]) ID Date Data Source [id number] 12/11/2020 06:26:00 AM EST [facility]) Name Value Range Interpretation Code Description Data Claribel rce(s) Supporting Document(s) bedside glucose 116 mg/dL 70-105 Above high normal [facility]side [facility] [place] ID Date Data Source [id number] 12/11/2020 06:26:00 AM EST CYNDI ([facility]) Name Value Range Interpretation Code Description Data Claribel rce(s) Supporting Document(s) bedside glucose 116 mg/dL 70-105 Above high normal Bedside Gluco se CYNDI ([facility]) ID Date Data Source [id number] 12/11/2020 06:26:00 AM EST [facility] [place] Name Value Range Interpretation Code Description Data Claribel rce(s) Supporting Document(s) bedside glucose 116 mg/dL 70-105 Above high normal Bedside Gluco se [facility] [place]) ID Date Data Source [id number] 12/11/2020 06:26:00 AM EST CYNDI ([facility]) Name Value Range Interpretation Code Description Data Claribel rce(s) Supporting Document(s) bedside glucose 116 mg/dL 70-105 Above high normal Bedside Gluco se CYNDI ([facility]) ID Date Data Source [id number] 12/11/2020 06:26:00 AM EST CYNDI ([facility]) Name Value Range Interpretation Code Description Data Claribel rce(s) Supporting Document(s) bedside glucose 116 mg/dL 70-105 Above high normal Bedside Gluco se [facility]OT[facility]CHILD ([facility]) ID Date Data Source [id number] 12/11/2020 06:00:00 AM EST [facility]OT[facility]ILD ([facility]) Name Value Range Interpretation Code Description Data Claribel rce(s) Supporting Document(s) white blood count 7.7 10 4.0-10.0 White Blood Count [facility]OT[facility]ILD ([facility]) red blood count 3.91 10 4.00-5.40 Below low normal Red Blood Coun t [facility]OT[facility]CHILD ([facility]) hemoglobin 11.4 g/dL 12.0-15.5 Below low normal Hemoglobin CYNDI ( [facility]) hematocrit 34.1 % 36.0-47.0 Below low normal Hematocrit ROTHSCHILD ( [facility]) mean corpuscular volume 87.2 fL 80.0-96.0 Mean Corpusc ular Volume CYNDI ([facility]) mean corpuscular HGB conc 33.4 g/dL 32.0-36.5 Mean Corpu scular HGB Conc CYNDI ([facility]) mean corpuscular hemoglobin 29.2 pg 27.0-33.0 Mean Cor puscular Hemoglobin ROTHSCHILD ([facility]) red cell distribution width 13.3 % 11.5-14.5 Red Cell Distribution Width CYNDI ([facility]) nucleated red blood cell % 0.0 % 0-0 Nucleated Red Blood Cell % ROT[facility]ILD ([facility]) platelet count, automated 229 10 150-450 Platelet C ount, Automated ROT[facility]CHILD ([facility]) ID Date Data Source [id number] 12/11/2020 06:00:00 AM EST CYNDI ([facility]) Name Value Range Interpretation Code Description Data Claribel rce(s) Supporting Document(s) white blood count 7.7 10 4.0-10.0 White Blood Count CYNDI ([facility]) hemoglobin 11.4 g/dL 12.0-15.5 Below low normal Hemoglobin CYNDI ( [facility]) red blood count 3.91 10 4.00-5.40 Below low normal Red Blood Coun t [facility]OT[facility]ILD ([facility]) hematocrit 34.1 % 36.0-47.0 Below low normal Hematocrit ROTHSCHILD ( [facility]) mean corpuscular volume 87.2 fL 80.0-96.0 Mean Corpusc ular Volume CYNDI ([facility]) mean corpuscular hemoglobin 29.2 pg 27.0-33.0 Mean Cor puscular Hemoglobin ROTHSCHILD ([facility]) mean corpuscular HGB conc 33.4 g/dL 32.0-36.5 Mean Corpu scular HGB Conc CYNDI ([facility]) red cell distribution width 13.3 % 11.5-14.5 Red Cell Distribution Width CYNDI ([facility]) platelet count, automated 229 10 150-450 Platelet C ount, Automated CYNDI ([facility]) nucleated red blood cell % 0.0 % 0-0 Nucleated Red Blood Cell % CYNDI ([facility]) ID Date Data Source [id number] 12/11/2020 06:00:00 AM EST CYNDI ([facility]) Name Value Range Interpretation Code Description Data Claribel rce(s) Supporting Document(s) red blood count 3.91 10 4.00-5.40 Below low normal Red Blood Coun t CYNDI ([facility]) white blood count 7.7 10 4.0-10.0 White Blood Count CYNDI ([facility]) hemoglobin 11.4 g/dL 12.0-15.5 Below low normal Hemoglobin CYNDI ( [facility]) hematocrit 34.1 % 36.0-47.0 Below low normal Hematocrit CYNDI ( [facility]) mean corpuscular volume 87.2 fL 80.0-96.0 Mean Corpusc ular Volume CYNDI ([facility]) mean corpuscular HGB conc 33.4 g/dL 32.0-36.5 Mean Corpu scular HGB Conc CYNDI ([facility]) mean corpuscular hemoglobin 29.2 pg 27.0-33.0 Mean Cor puscular Hemoglobin CYNDI ([facility]) platelet count, automated 229 10 150-450 Platelet C ount, Automated CYNDI ([facility]) red cell distribution width 13.3 % 11.5-14.5 Red Cell Distribution Width CYNDI ([facility]) nucleated red blood cell % 0.0 % 0-0 Nucleated Red Blood Cell % CYNDI ([facility]) ID Date Data Source [id number] 12/11/2020 06:00:00 AM EST ROT[facility]ILD ([facility]) Name Value Range Interpretation Code Description Data Claribel rce(s) Supporting Document(s) white blood count 7.7 10 4.0-10.0 White Blood Count CYNDI ([facility]) red blood count 3.91 10 4.00-5.40 Below low normal Red Blood Coun t CYNDI ([facility]) hemoglobin 11.4 g/dL 12.0-15.5 Below low normal Hemoglobin CYNDI ( [facility]) hematocrit 34.1 % 36.0-47.0 Below low normal Hematocrit CYNDI ( [facility]) mean corpuscular volume 87.2 fL 80.0-96.0 Mean Corpusc ular Volume CYNDI ([facility]) mean corpuscular hemoglobin 29.2 pg 27.0-33.0 Mean Cor puscular Hemoglobin CYNDI ([facility]) mean corpuscular HGB conc 33.4 g/dL 32.0-36.5 Mean Corpu scular HGB Conc CYNDI ([facility]) platelet count, automated 229 10 150-450 Platelet C ount, Automated CYNDI ([facility]) red cell distribution width 13.3 % 11.5-14.5 Red Cell Distribution Width CYNDI ([facility]) nucleated red blood cell % 0.0 % 0-0 Nucleated Red Blood Cell % ROTHSCHILD ([facility]) ID Date Data Source [id number] 12/11/2020 06:00:00 AM EST CYNDI ([facility]) Name Value Range Interpretation Code Description Data Claribel rce(s) Supporting Document(s) white blood count 7.7 10 4.0-10.0 White Blood Count ROT[facility]CHILD ([facility]) red blood count 3.91 10 4.00-5.40 Below low normal Red Blood Coun t [facility]OT[facility]CHILD ([facility]) hemoglobin 11.4 g/dL 12.0-15.5 Below low normal Hemoglobin ROTHSCHILD ( [facility]) hematocrit 34.1 % 36.0-47.0 Below low normal Hematocrit ROTHSCHILD ( [facility]) mean corpuscular volume 87.2 fL 80.0-96.0 Mean Corpusc ular Volume ROTHSCHILD ([facility]) mean corpuscular hemoglobin 29.2 pg 27.0-33.0 Mean Cor puscular Hemoglobin ROTHSCHILD ([facility]) mean corpuscular HGB conc 33.4 g/dL 32.0-36.5 Mean Corpu scular HGB Conc ROTHSCHILD ([facility]) red cell distribution width 13.3 % 11.5-14.5 Red Cell Distribution Width CYNDI ([facility]) platelet count, automated 229 10 150-450 Platelet C ount, Automated CYNDI ([facility]) nucleated red blood cell % 0.0 % 0-0 Nucleated Red Blood Cell % CYNDI ([facility]) ID Date Data Source [id number] 12/11/2020 06:00:00 AM EST CYNDI ([facility]) Name Value Range Interpretation Code Description Data Claribel rce(s) Supporting Document(s) white blood count 7.7 10 4.0-10.0 White Blood Count ROTHSCHILD ([facility]) red blood count 3.91 10 4.00-5.40 Below low normal Red Blood Coun t CYNDI ([facility]) hemoglobin 11.4 g/dL 12.0-15.5 Below low normal Hemoglobin ROTHSCHILD ( [facility]) mean corpuscular volume 87.2 fL 80.0-96.0 Mean Corpusc ular Volume ROTHSCHILD ([facility]) hematocrit 34.1 % 36.0-47.0 Below low normal Hematocrit ROTHSCHILD ( [facility]) mean corpuscular hemoglobin 29.2 pg 27.0-33.0 Mean Cor puscular Hemoglobin ROTHSCHILD ([facility]) mean corpuscular HGB conc 33.4 g/dL 32.0-36.5 Mean Corpu scular HGB Conc ROTHSCHILD ([facility]) red cell distribution width 13.3 % 11.5-14.5 Red Cell Distribution Width CYNDI ([facility]) platelet count, automated 229 10 150-450 Platelet C ount, Automated ROTHSCHILD ([facility]) nucleated red blood cell % 0.0 % 0-0 Nucleated Red Blood Cell % ROT[facility]CHILD ([facility]) ID Date Data Source [id number] 12/11/2020 05:26:00 AM EST ROT[facility]ILD ([facility]) Name Value Range Interpretation Code Description Data Claribel rce(s) Supporting Document(s) bedside glucose 208 mg/dL 70-105 Above high normal Bedside Gluco se ROT[facility]CHILD ([facility]) ID Date Data Source [id number] 12/11/2020 05:26:00 AM EST [facility]) Name Value Range Interpretation Code Description Data Claribel rce(s) Supporting Document(s) bedside glucose 208 mg/dL 70-105 Above high normal Bedside Gluco se ROTHSCHILD ([facility]) ID Date Data Source [id number] 12/11/2020 05:26:00 AM EST CYNDI ([facility]) Name Value Range Interpretation Code Description Data Claribel rce(s) Supporting Document(s) bedside glucose 208 mg/dL 70-105 Above high normal Bedside Gluco se CYNDI ([facility]) ID Date Data Source [id number] 12/11/2020 05:26:00 AM EST CYNDI ([facility]) Name Value Range Interpretation Code Description Data Claribel rce(s) Supporting Document(s) bedside glucose 208 mg/dL 70-105 Above high normal Bedside Gluco se CYNDI ([facility]) ID Date Data Source [id number] 12/11/2020 05:26:00 AM EST CYNDI ([facility]) Name Value Range Interpretation Code Description Data Claribel rce(s) Supporting Document(s) bedside glucose 208 mg/dL 70-105 Above high normal Bedside Gluco se CYNDI ([facility]) ID Date Data Source [id number] 12/11/2020 05:26:00 AM EST CYNDI [facility]) Name Value Range Interpretation Code Description Data Claribel rce(s) Supporting Document(s) bedside glucose 208 mg/dL 70-105 Above high normal Bedside Gluco se CYNDI ([facility]) ID Date Data Source [id number] 12/11/2020 03:55:00 AM EST CYNDI ([facility]) Name Value Range Interpretation Code Description Data Claribel rce(s) Supporting Document(s) osmolality serum 310 mOsm/kg 275-295 Above high normal Osmolality Serum [facility] [place] ID Date Data Source [id number] 12/11/2020 03:55:00 AM EST CYNDI ([facility]) Name Value Range Interpretation Code Description Data Claribel rce(s) Supporting Document(s) phosphorus level 1.5 mg/dL 2.5-4.9 Below low normal Phosphorus Le karma CYNDI ([facility]) ID Date Data Source [id number] 12/11/2020 03:55:00 AM EST CYNDI ([facility]) Name Value Range Interpretation Code Description Data Claribel rce(s) Supporting Document(s) glucose, fasting 224 mg/dL 70-100 Above high normal Glucose, Fas ting CYNDI ([facility]) blood urea nitrogen 23 mg/dL 7-18 Above high normal Blood Ure a Nitrogen CYNDI ([facility]) creatinine for GFR 1.55 mg/dL 0.55-1.30 Above high normal Creatinine for GFR ROTHSCHILD ([facility]) glomerular filtration rate >60 Below low normal Mariza merular Filtration Rate CYNDI ([facility]) sodium level 141 mEq/L 136-145 Sodium Level CYNDI ([facility]) potassium serum 4.0 mEq/L 3.5-5.1 Potassium Serum ATHE NA ([facility]) chloride level 112 mEq/L 98-107 Above high normal Chloride Level ROTHSCHILD ([facility]) carbon dioxide level 13 mEq/L 21-32 Below low normal Carbon Di oxide Level ROTHSCHILD ([facility]) anion gap 16 mEq/L 8-16 Anion Gap CYNDI ([facility]) calcium level 8.8 mg/dL 8.5-10.1 Calcium Level CYNDI ( [facility]) ID Date Data Source [id number] 12/11/2020 03:55:00 AM EST ROTHSCHILD ([facility]) Name Value Range Interpretation Code Description Data Claribel rce(s) Supporting Document(s) venous pH 7.221 units 7.330-7.430 Below low normal Venous pH CYNDI ([facility]) venous partial pressure CO2 30.1 mmHg 38.0-50.0 Below low nor mal Venous Partial Pressure CO2 CYNDI ([facility]) venous partial pressure O2 74.2 mmHg 30.0-50.0 Above high nor mal Venous Partial Pressure O2 CYNDI ([facility]) venous total CO2 13.0 mEq/L 24.0-28.0 Below low normal Venous Total CO2 CYNDI ([facility]) venous HCO3 12.1 mEq/L 23.0-27.0 Below low normal Venous HCO3 CYNDI ([facility]) venous base excess -2.0-2.0 Below low normal Venous Base Excess CYNDI ([facility]) venous standard HCO3 13.5 mEq/L Venous Standard HCO3 CYNDI ([facility]) venous O2 saturation 94.9 % 60.0-80.0 Above high normal Venous O 2 Saturation ROTHSCHILD ([facility]) ID Date Data Source [id number] 12/11/2020 03:55:00 AM EST CYNDI ([facility]) Name Value Range Interpretation Code Description Data Claribel rce(s) Supporting Document(s) osmolality serum 310 mOsm/kg 275-295 Above high normal Osmolality Serum ROTHSCHILD ([facility]) ID Date Data Source [id number] 12/11/2020 03:55:00 AM EST ROTHSCHILD ([facility]) Name Value Range Interpretation Code Description Data Claribel rce(s) Supporting Document(s) phosphorus level 1.5 mg/dL 2.5-4.9 Below low normal Phosphorus Le karma CYNDI ([facility]) ID Date Data Source [id number] 12/11/2020 03:55:00 AM EST CYNDI ([facility]) Name Value Range Interpretation Code Description Data Claribel rce(s) Supporting Document(s) blood urea nitrogen 23 mg/dL 7-18 Above high normal Blood Ure a Nitrogen CYNDI ([facility]) glucose, fasting 224 mg/dL 70-100 Above high normal Glucose, Fas ting CYNDI ([facility]) creatinine for GFR 1.55 mg/dL 0.55-1.30 Above high normal Creatinine for GFR CYNDI ([facility]) sodium level 141 mEq/L 136-145 Sodium Level CYNDI ([facility]) glomerular filtration rate >60 Below low normal Mariza merular Filtration Rate CYNDI ([facility]) chloride level 112 mEq/L 98-107 Above high normal Chloride Level CYNDI ([facility]) potassium serum 4.0 mEq/L 3.5-5.1 Potassium Serum ATHE NA ([facility]) carbon dioxide level 13 mEq/L 21-32 Below low normal Carbon Di oxide Level CYNDI ([facility]) calcium level 8.8 mg/dL 8.5-10.1 Calcium Level CYNDI ( [facility]) anion gap 16 mEq/L 8-16 Anion Gap CYNDI ([facility]) ID Date Data Source [id number] 12/11/2020 03:55:00 AM EST ROTHSCHILD ([facility]) Name Value Range Interpretation Code Description Data Claribel rce(s) Supporting Document(s) venous pH 7.221 units 7.330-7.430 Below low normal Venous pH CYNDI ([facility]) venous partial pressure CO2 30.1 mmHg 38.0-50.0 Below low nor mal Venous Partial Pressure CO2 CYNDI ([facility]) venous total CO2 13.0 mEq/L 24.0-28.0 Below low normal Venous Total CO2 CYNDI ([facility]) venous partial pressure O2 74.2 mmHg 30.0-50.0 Above high nor mal Venous Partial Pressure O2 CYNDI ([facility]) venous HCO3 12.1 mEq/L 23.0-27.0 Below low normal Venous HCO3 CYNDI ([facility]) venous standard HCO3 13.5 mEq/L Venous Standard HCO3 CYNDI ([facility]) venous base excess -2.0-2.0 Below low normal Venous Base Excess CYNDI ([facility]) venous O2 saturation 94.9 % 60.0-80.0 Above high normal Venous O 2 Saturation [facility]) ID Date Data Source [id number] 12/11/2020 03:55:00 AM EST ROTHSCHILD ([facility]) Name Value Range Interpretation Code Description Data Claribel rce(s) Supporting Document(s) osmolality serum 310 mOsm/kg 275-295 Above high normal Osmolality Serum CYNDI ([facility]) ID Date Data Source [id number] 12/11/2020 03:55:00 AM EST CYNDI ([facility]) Name Value Range Interpretation Code Description Data Claribel rce(s) Supporting Document(s) phosphorus level 1.5 mg/dL 2.5-4.9 Below low normal Phosphorus Le karma CYNDI ([facility]) ID Date Data Source [id number] 12/11/2020 03:55:00 AM EST CYNDI ([facility]) Name Value Range Interpretation Code Description Data Claribel rce(s) Supporting Document(s) glucose, fasting 224 mg/dL 70-100 Above high normal Glucose, Fas ting CYNDI ([facility]) blood urea nitrogen 23 mg/dL 7-18 Above high normal Blood Ure a Nitrogen CYNDI ([facility]) creatinine for GFR 1.55 mg/dL 0.55-1.30 Above high normal Creatinine for GFR CYNDI ([facility]) glomerular filtration rate >60 Below low normal Mairza merular Filtration Rate CYNDI ([facility]) potassium serum 4.0 mEq/L 3.5-5.1 Potassium Serum ATHE NA ([facility]) sodium level 141 mEq/L 136-145 Sodium Level CYNDI ([facility]) chloride level 112 mEq/L 98-107 Above high normal Chloride Level CYNDI ([facility]) anion gap 16 mEq/L 8-16 Anion Gap CYNDI ([facility]) carbon dioxide level 13 mEq/L 21-32 Below low normal Carbon Di oxide Level CYNDI ([facility]) calcium level 8.8 mg/dL 8.5-10.1 Calcium Level ROTHSCHILD ( [facility]) ID Date Data Source [id number] 12/11/2020 03:55:00 AM EST CYNDI ([facility]) Name Value Range Interpretation Code Description Data Claribel rce(s) Supporting Document(s) venous pH 7.221 units 7.330-7.430 Below low normal Venous pH CYNDI ([facility]) venous partial pressure O2 74.2 mmHg 30.0-50.0 Above high nor mal Venous Partial Pressure O2 CYNDI ([facility]) venous partial pressure CO2 30.1 mmHg 38.0-50.0 Below low nor mal Venous Partial Pressure CO2 CYNDI ([facility]) venous HCO3 12.1 mEq/L 23.0-27.0 Below low normal Venous HCO3 CYNDI ([facility]) venous total CO2 13.0 mEq/L 24.0-28.0 Below low normal Venous Total CO2 CYNDI ([facility]) venous base excess -2.0-2.0 Below low normal Venous Base Excess CYNDI ([facility]) venous standard HCO3 13.5 mEq/L Venous Standard HCO3 CYNDI ([facility]) venous O2 saturation 94.9 % 60.0-80.0 Above high normal Venous O 2 Saturation ROTHSCHILD ([facility]) ID Date Data Source [id number] 12/11/2020 03:55:00 AM EST CYNDI ([facility]) Name Value Range Interpretation Code Description Data Claribel rce(s) Supporting Document(s) osmolality serum 310 mOsm/kg 275-295 Above high normal Osmolality Serum CYNDI ([facility]) ID Date Data Source [id number] 12/11/2020 03:55:00 AM EST CYND[facility] ([facility]) Name Value Range Interpretation Code Description Data Claribel rce(s) Supporting Document(s) phosphorus level 1.5 mg/dL 2.5-4.9 Below low normal Phosphorus Le karma CYND[facility] ([facility]) ID Date Data Source [id number] 12/11/2020 03:55:00 AM EST [facility] ([facility]) Name Value Range Interpretation Code Description Data Claribel rce(s) Supporting Document(s) glucose, fasting 224 mg/dL 70-100 Above high normal Glucose, Fas ting [facility] ([facility]) blood urea nitrogen 23 mg/dL 7-18 Above high normal Blood Ure a Nitrogen [facility] ([facility]) glomerular filtration rate >60 Below low normal Mariza merular Filtration Rate CYNDI ([facility]) creatinine for GFR 1.55 mg/dL 0.55-1.30 Above high normal Creatinine for GFR [facility] ([facility]) sodium level 141 mEq/L 136-145 Sodium Level [facility] ([facility]) potassium serum 4.0 mEq/L 3.5-5.1 Potassium Serum ATH NA ([facility]) chloride level 112 mEq/L 98-107 Above high normal Chloride Level [facility] ([facility]) carbon dioxide level 13 mEq/L 21-32 Below low normal Carbon Di oxide Level [facility]ILD ([facility]) anion gap 16 mEq/L 8-16 Anion Gap [facility] ([facility]) calcium level 8.8 mg/dL 8.5-10.1 Calcium Level [facility] ( [facility]) ID Date Data Source [id number] 12/11/2020 03:55:00 AM EST [facility]) Name Value Range Interpretation Code Description Data Claribel rce(s) Supporting Document(s) venous pH 7.221 units 7.330-7.430 Below low normal Venous pH [facility]) venous partial pressure CO2 30.1 mmHg 38.0-50.0 Below low nor mal Venous Partial Pressure CO2 [facility]) venous partial pressure O2 74.2 mmHg 30.0-50.0 Above high nor mal Venous Partial Pressure O2 [facility]) venous total CO2 13.0 mEq/L 24.0-28.0 Below low normal Venous Total CO2 [facility]) venous HCO3 12.1 mEq/L 23.0-27.0 Below low normal Venous HCO3 [facility]) venous base excess -2.0-2.0 Below low normal Venous Base Excess [facility] ([facility]) venous standard HCO3 13.5 mEq/L Venous Standard HCO3 CY[facility] ([facility]) venous O2 saturation 94.9 % 60.0-80.0 Above high normal Venous O 2 Saturation [facility] ([facility]) ID Date Data Source [id number] 12/11/2020 03:55:00 AM EST [facility] ([facility]) Name Value Range Interpretation Code Description Data Claribel rce(s) Supporting Document(s) osmolality serum 310 mOsm/kg 275-295 Above high normal Osmolality Serum [facility] ([facility]) ID Date Data Source [id number] 12/11/2020 03:55:00 AM EST [facility] ([facility]) Name Value Range Interpretation Code Description Data Claribel rce(s) Supporting Document(s) phosphorus level 1.5 mg/dL 2.5-4.9 Below low normal Phosphorus Le karma [facility] ([facility]) ID Date Data Source [id number] 12/11/2020 03:55:00 AM EST [facility] ([facility]) Name Value Range Interpretation Code Description Data Claribel rce(s) Supporting Document(s) glucose, fasting 224 mg/dL 70-100 Above high normal Glucose, Fas ting CY[facility]I ([facility]) blood urea nitrogen 23 mg/dL 7-18 Above high normal Blood Ure a Nitrogen [facility] ([facility]) creatinine for GFR 1.55 mg/dL 0.55-1.30 Above high normal Creatinine for GFR [facility] ([facility]) glomerular filtration rate >60 Below low normal Mariza merular Filtration Rate CY[facility] ([facility]) sodium level 141 mEq/L 136-145 Sodium Level [facility] ([facility]) potassium serum 4.0 mEq/L 3.5-5.1 Potassium Serum ATHE NA ([facility]) carbon dioxide level 13 mEq/L 21-32 Below low normal Carbon Di oxide Level [facility]ILD ([facility]) chloride level 112 mEq/L 98-107 Above high normal Chloride Level CY[facility]I ([facility]) anion gap 16 mEq/L 8-16 Anion Gap [facility] ([facility]) calcium level 8.8 mg/dL 8.5-10.1 Calcium Level [facility] ( [facility]) ID Date Data Source [id number] 12/11/2020 03:55:00 AM EST [facility] ([facility]) Name Value Range Interpretation Code Description Data Claribel rce(s) Supporting Document(s) venous pH 7.221 units 7.330-7.430 Below low normal Venous pH [facility] ([facility]) venous partial pressure CO2 30.1 mmHg 38.0-50.0 Below low nor mal Venous Partial Pressure CO2 [facility] ([facility]) venous total CO2 13.0 mEq/L 24.0-28.0 Below low normal Venous Total CO2 [facility] ([facility]) venous partial pressure O2 74.2 mmHg 30.0-50.0 Above high nor mal Venous Partial Pressure O2 [facility] ([facility]) venous HCO3 12.1 mEq/L 23.0-27.0 Below low normal Venous HCO3 [facility] ([facility]) venous base excess -2.0-2.0 Below low normal Venous Base Excess [facility] ([facility]) venous standard HCO3 13.5 mEq/L Venous Standard HCO3 [facility] ([facility]) venous O2 saturation 94.9 % 60.0-80.0 Above high normal Venous O 2 Saturation [facility] ([facility]) ID Date Data Source [id number] 12/11/2020 03:55:00 AM EST [facility] ([facility]) Name Value Range Interpretation Code Description Data Claribel rce(s) Supporting Document(s) osmolality serum 310 mOsm/kg 275-295 Above high normal Osmolality Serum [facility] ([facility]) ID Date Data Source [id number] 12/11/2020 03:55:00 AM EST [facility] ([facility]) Name Value Range Interpretation Code Description Data Claribel rce(s) Supporting Document(s) phosphorus level 1.5 mg/dL 2.5-4.9 Below low normal Phosphorus Le karma [facility] ([facility]) ID Date Data Source [id number] 12/11/2020 03:55:00 AM EST [facility] ([facility]) Name Value Range Interpretation Code Description Data Claribel rce(s) Supporting Document(s) glucose, fasting 224 mg/dL 70-100 Above high normal Glucose, Fas ting [facility] ([facility]) blood urea nitrogen 23 mg/dL 7-18 Above high normal Blood Ure a Nitrogen [facility] ([facility]) creatinine for GFR 1.55 mg/dL 0.55-1.30 Above high normal Creatinine for GFR [facility] ([facility]) sodium level 141 mEq/L 136-145 Sodium Level [facility] ([facility]) glomerular filtration rate >60 Below low normal Mariza merular Filtration Rate [facility] ([facility]) potassium serum 4.0 mEq/L 3.5-5.1 Potassium Serum ATHE NA ([facility]) carbon dioxide level 13 mEq/L 21-32 Below low normal Carbon Di oxide Level [facility] ([facility]) chloride level 112 mEq/L 98-107 Above high normal Chloride Level [facility] ([facility]) anion gap 16 mEq/L 8-16 Anion Gap [facility] ([facility]) calcium level 8.8 mg/dL 8.5-10.1 Calcium Level [facility] ( [facility]) ID Date Data Source [id number] 12/11/2020 03:55:00 AM EST [facility] ([facility]) Name Value Range Interpretation Code Description Data Claribel rce(s) Supporting Document(s) venous pH 7.221 units 7.330-7.430 Below low normal Venous pH [facility] ([facility]) venous partial pressure CO2 30.1 mmHg 38.0-50.0 Below low nor mal Venous Partial Pressure CO2 [facility] ([facility]) venous partial pressure O2 74.2 mmHg 30.0-50.0 Above high nor mal Venous Partial Pressure O2 [facility] ([facility]) venous total CO2 13.0 mEq/L 24.0-28.0 Below low normal Venous Total CO2 [facility] ([facility]) venous HCO3 12.1 mEq/L 23.0-27.0 Below low normal Venous HCO3 [facility] ([facility]) venous base excess -2.0-2.0 Below low normal Venous Base Excess [facility] ([facility]) venous standard HCO3 13.5 mEq/L Venous Standard HCO3 [facility] ([facility]) venous O2 saturation 94.9 % 60.0-80.0 Above high normal Venous O 2 Saturation [facility] ([facility]) ID Date Data Source [id number] 12/11/2020 03:50:00 AM EST [facility] ([facility]) Name Value Range Interpretation Code Description Data Claribel rce(s) Supporting Document(s) bedside glucose 218 mg/dL 70-105 Above high normal Bedside Gluco se [facility]) ID Date Data Source [id number] 12/11/2020 03:50:00 AM EST [facility]) Name Value Range Interpretation Code Description Data Claribel rce(s) Supporting Document(s) bedside glucose 218 mg/dL 70-105 Above high normal Bedside Gluco se [facility] ([facility]) ID Date Data Source [id number] 12/11/2020 03:50:00 AM EST [facility] ([facility]) Name Value Range Interpretation Code Description Data Claribel rce(s) Supporting Document(s) bedside glucose 218 mg/dL 70-105 Above high normal Bedside Gluco se [facility] ([facility]) ID Date Data Source [id number] 12/11/2020 03:50:00 AM EST [facility]) Name Value Range Interpretation Code Description Data Claribel rce(s) Supporting Document(s) bedside glucose 218 mg/dL 70-105 Above high normal Bedside Gluco se [facility] ([facility]) ID Date Data Source [id number] 12/11/2020 03:50:00 AM EST [facility] ([facility]) Name Value Range Interpretation Code Description Data Claribel rce(s) Supporting Document(s) bedside glucose 218 mg/dL 70-105 Above high normal Bedside Gluco se [facility] ([facility]) ID Date Data Source [id number] 12/11/2020 03:50:00 AM EST [facility] ([facility]) Name Value Range Interpretation Code Description Data Claribel rce(s) Supporting Document(s) bedside glucose 218 mg/dL 70-105 Above high normal Bedside Gluco se [facility] ([facility]) ID Date Data Source [id number] 12/11/2020 03:02:00 AM EST CY[facility] ([facility]) Name Value Range Interpretation Code Description Data Claribel rce(s) Supporting Document(s) bedside glucose 230 mg/dL 70-105 Above high normal Bedside Gluco se [facility] ([facility]) ID Date Data Source [id number] 12/11/2020 03:02:00 AM EST [facility] ([facility]) Name Value Range Interpretation Code Description Data Claribel rce(s) Supporting Document(s) bedside glucose 230 mg/dL 70-105 Above high normal Bedside Gluco se [facility] ([facility]) ID Date Data Source [id number] 12/11/2020 03:02:00 AM EST [facility] ([facility]) Name Value Range Interpretation Code Description Data Claribel rce(s) Supporting Document(s) bedside glucose 230 mg/dL 70-105 Above high normal [facility] Date Data Source [id number] 12/11/2020 03:02:00 AM EST [facility] ([facility]) Name Value Range Interpretation Code Description Data Claribel rce(s) Supporting Document(s) bedside glucose 230 mg/dL 70-105 Above high normal Bedside Gluco se [facility] ([facility]) ID Date Data Source [id number] 12/11/2020 03:02:00 AM EST [facility] ([facility]) Name Value Range Interpretation Code Description Data Claribel rce(s) Supporting Document(s) bedside glucose 230 mg/dL 70-105 Above high normal Bedside Gluco se [facility] ([facility]) ID Date Data Source [id number] 12/11/2020 03:02:00 AM EST [facility] ([facility]) Name Value Range Interpretation Code Description Data Claribel rce(s) Supporting Document(s) bedside glucose 230 mg/dL 70-105 Above high normal Bedside Gluco se [facility] ([facility]) ID Date Data Source [id number] 12/11/2020 02:11:00 AM EST [facility] ([facility]) Name Value Range Interpretation Code Description Data Claribel rce(s) Supporting Document(s) bedside glucose 211 mg/dL 70-105 Above high normal Bedside Gluco se [facility] ([facility]) ID Date Data Source [id number] 12/11/2020 02:11:00 AM EST [facility] ([facility]) Name Value Range Interpretation Code Description Data Claribel rce(s) Supporting Document(s) bedside glucose 211 mg/dL 70-105 Above high normal [facility] [place] ID Date Data Source [id number] 12/11/2020 02:11:00 AM EST [facility] ([facility]) Name Value Range Interpretation Code Description Data Claribel rce(s) Supporting Document(s) bedside glucose 211 mg/dL 70-105 Above high normal Bedside Gluco se [facility] ([facility]) ID Date Data Source [id number] 12/11/2020 02:11:00 AM EST [facility] ([facility]) Name Value Range Interpretation Code Description Data Claribel rce(s) Supporting Document(s) bedside glucose 211 mg/dL 70-105 Above high normal Bedside Gluco se [facility] ([facility]) ID Date Data Source [id number] 12/11/2020 02:11:00 AM EST [facility] ([facility]) Name Value Range Interpretation Code Description Data Claribel rce(s) Supporting Document(s) bedside glucose 211 mg/dL 70-105 Above high normal Bedside Gluco se [facility] ([facility]) ID Date Data Source [id number] 12/11/2020 02:11:00 AM EST [facility] ([facility]) Name Value Range Interpretation Code Description Data Claribel rce(s) Supporting Document(s) bedside glucose 211 mg/dL 70-105 Above high normal Bedside Gluco se [facility] ([facility]) ID Date Data Source [id number] 12/11/2020 01:06:00 AM EST [facility] ([facility]) Name Value Range Interpretation Code Description Data Claribel rce(s) Supporting Document(s) potassium random urine 55.4 mEq/L Potassium Ran dom Urine [facility] ([facility]) ID Date Data Source [id number] 12/11/2020 01:06:00 AM EST [facility] ([facility]) Name Value Range Interpretation Code Description Data Claribel rce(s) Supporting Document(s) sodium,random urine 35 mEq/L Sodium,random Ur ine [facility] ([facility]) ID Date Data Source [id number] 12/11/2020 01:06:00 AM EST [facility] ([facility]) Name Value Range Interpretation Code Description Data Claribel rce(s) Supporting Document(s) creatinine,random urine 127.0 mg/dL Creatinine, random Urine [facility] ([facility]) ID Date Data Source [id number] 12/11/2020 01:06:00 AM EST [facility] ([facility]) Name Value Range Interpretation Code Description Data Claribel rce(s) Supporting Document(s) urea nitrogen random urine 622 mg/dL Urea Nitr ogen Random Urine [facility] ([facility]) ID Date Data Source [id number] 12/11/2020 01:06:00 AM EST [facility] ([facility]) Name Value Range Interpretation Code Description Data Claribel rce(s) Supporting Document(s) potassium random urine 55.4 mEq/L Potassium Ran dom Urine [facility] ([facility]) ID Date Data Source [id number] 12/11/2020 01:06:00 AM EST [facility] ([facility]) Name Value Range Interpretation Code Description Data Claribel rce(s) Supporting Document(s) sodium,random urine 35 mEq/L Sodium,random Ur ine [facility] ([facility]) ID Date Data Source [id number] 12/11/2020 01:06:00 AM EST [facility] ([facility]) Name Value Range Interpretation Code Description Data Claribel rce(s) Supporting Document(s) creatinine,random urine 127.0 mg/dL Creatinine, random Urine [facility] ([facility]) ID Date Data Source [id number] 12/11/2020 01:06:00 AM EST [facility] ([facility]) Name Value Range Interpretation Code Description Data Claribel rce(s) Supporting Document(s) urea nitrogen random urine 622 mg/dL Urea Nitr ogen Random Urine [facility] ([facility]) ID Date Data Source [id number] 12/11/2020 01:06:00 AM EST [facility] ([facility]) Name Value Range Interpretation Code Description Data Claribel rce(s) Supporting Document(s) potassium random urine 55.4 mEq/L Potassium Ran dom Urine [facility] ([facility]) ID Date Data Source [id number] 12/11/2020 01:06:00 AM EST [facility] ([facility]) Name Value Range Interpretation Code Description Data Claribel rce(s) Supporting Document(s) sodium,random urine 35 mEq/L Sodium,random Ur ine [facility] ([facility]) ID Date Data Source [id number] 12/11/2020 01:06:00 AM EST [facility] ([facility]) Name Value Range Interpretation Code Description Data Claribel rce(s) Supporting Document(s) creatinine,random urine 127.0 mg/dL Creatinine, random Urine [facility] ([facility]) ID Date Data Source [id number] 12/11/2020 01:06:00 AM EST [facility] ([facility]) Name Value Range Interpretation Code Description Data Claribel rce(s) Supporting Document(s) urea nitrogen random urine 622 mg/dL Urea Nitr ogen Random Urine [facility] ([facility]) ID Date Data Source [id number] 12/11/2020 01:06:00 AM EST [facility] ([facility]) Name Value Range Interpretation Code Description Data Claribel rce(s) Supporting Document(s) potassium random urine 55.4 mEq/L Potassium Ran dom Urine [facility] ([facility]) ID Date Data Source [id number] 12/11/2020 01:06:00 AM EST [facility] ([facility]) Name Value Range Interpretation Code Description Data Claribel rce(s) Supporting Document(s) sodium,random urine 35 mEq/L Sodium,random Ur ine [facility] ([facility]) ID Date Data Source [id number] 12/11/2020 01:06:00 AM EST [facility] ([facility]) Name Value Range Interpretation Code Description Data Claribel rce(s) Supporting Document(s) creatinine,random urine 127.0 mg/dL Creatinine, random Urine [facility] ([facility]) ID Date Data Source [id number] 12/11/2020 01:06:00 AM EST [facility] ([facility]) Name Value Range Interpretation Code Description Data Claribel rce(s) Supporting Document(s) urea nitrogen random urine 622 mg/dL Urea Nitr ogen Random Urine [facility] ([facility]) ID Date Data Source [id number] 12/11/2020 01:06:00 AM EST [facility] ([facility]) Name Value Range Interpretation Code Description Data Claribel rce(s) Supporting Document(s) potassium random urine 55.4 mEq/L Potassium Ran dom Urine [facility] ([facility]) ID Date Data Source [id number] 12/11/2020 01:06:00 AM EST [facility] ([facility]) Name Value Range Interpretation Code Description Data Claribel rce(s) Supporting Document(s) sodium,random urine 35 mEq/L Sodium,random Ur ine [facility] ([facility]) ID Date Data Source [id number] 12/11/2020 01:06:00 AM EST [facility] ([facility]) Name Value Range Interpretation Code Description Data Claribel rce(s) Supporting Document(s) creatinine,random urine 127.0 mg/dL Creatinine, random Urine [facility] ([facility]) ID Date Data Source [id number] 12/11/2020 01:06:00 AM EST [facility] ([facility]) Name Value Range Interpretation Code Description Data Claribel rce(s) Supporting Document(s) urea nitrogen random urine 622 mg/dL Urea Nitr ogen Random Urine [facility] ([facility]) ID Date Data Source [id number] 12/11/2020 01:06:00 AM EST [facility] ([facility]) Name Value Range Interpretation Code Description Data Claribel rce(s) Supporting Document(s) potassium random urine 55.4 mEq/L Potassium Ran dom Urine [facility] ([facility]) ID Date Data Source [id number] 12/11/2020 01:06:00 AM EST [facility] ([facility]) Name Value Range Interpretation Code Description Data Claribel rce(s) Supporting Document(s) sodium,random urine 35 mEq/L Sodium,random Ur ine [facility] ([facility]) ID Date Data Source [id number] 12/11/2020 01:06:00 AM EST [facility] ([facility]) Name Value Range Interpretation Code Description Data Claribel rce(s) Supporting Document(s) creatinine,random urine 127.0 mg/dL Creatinine, random Urine [facility] ([facility]) ID Date Data Source [id number] 12/11/2020 01:06:00 AM EST [facility] ([facility]) Name Value Range Interpretation Code Description Data Claribel rce(s) Supporting Document(s) urea nitrogen random urine 622 mg/dL Urea Nitr ogen Random Urine [facility] ([facility]) ID Date Data Source [id number] 12/11/2020 12:48:00 AM EST [facility] ([facility]) Name Value Range Interpretation Code Description Data Claribel rce(s) Supporting Document(s) bedside glucose 135 mg/dL 70-105 Above high normal Bedside Gluco se [facility] ([facility]) ID Date Data Source [id number] 12/11/2020 12:48:00 AM EST [facility] ([facility]) Name Value Range Interpretation Code Description Data Claribel rce(s) Supporting Document(s) bedside glucose 135 mg/dL 70-105 Above high normal Bedside Gluco se [facility] ([facility]) ID Date Data Source [id number] 12/11/2020 12:48:00 AM EST [facility]) Name Value Range Interpretation Code Description Data Claribel rce(s) Supporting Document(s) bedside glucose 135 mg/dL 70-105 Above high normal Bedside Gluco se [facility] ([facility]) ID Date Data Source [id number] 12/11/2020 12:48:00 AM EST [facility]) Name Value Range Interpretation Code Description Data Claribel rce(s) Supporting Document(s) bedside glucose 135 mg/dL 70-105 Above high normal Bedside Gluco se [facility]) ID Date Data Source [id number] 12/11/2020 12:48:00 AM [place] [facility] [place] Name Value Range Interpretation Code Description Data Claribel rce(s) Supporting Document(s) bedside glucose 135 mg/dL 70-105 Above high normal Bedside Gluco se [facility]) ID Date Data Source [id number] 12/11/2020 12:48:00 AM EST [facility] [place] Name Value Range Interpretation Code Description Data Claribel rce(s) Supporting Document(s) bedside glucose 135 mg/dL 70-105 Above high normal Bedside Gluco se [facility]) ID Date Data Source [id number] 12/11/2020 12:18:00 AM EST CYNDI ([facility]) Name Value Range Interpretation Code Description Data Claribel rce(s) Supporting Document(s) osmolality serum 311 mOsm/kg 275-295 Above high normal Osmolality Serum CYNDI ([facility]) ID Date Data Source [id number] 12/11/2020 12:18:00 AM EST CYNDI ([facility]) Name Value Range Interpretation Code Description Data Claribel rce(s) Supporting Document(s) phosphorus level 2.4 mg/dL 2.5-4.9 Below low normal Phosphorus Le karma CYNDI ([facility]) ID Date Data Source [id number] 12/11/2020 12:18:00 AM EST CYNDI ([facility]) Name Value Range Interpretation Code Description Data Claribel rce(s) Supporting Document(s) glucose, fasting 129 mg/dL 70-100 Above high normal Glucose, Fas ting CYNDI ([facility]) blood urea nitrogen 26 mg/dL 7-18 Above high normal Blood Ure a Nitrogen CYNDI ([facility]) creatinine for GFR 1.51 mg/dL 0.55-1.30 Above high normal Creatinine for GFR [facility] ([facility]) glomerular filtration rate >60 Below low normal Mariza merular Filtration Rate CYNDI ([facility]) sodium level 142 mEq/L 136-145 Sodium Level CYNDI ([facility]) potassium serum 4.4 mEq/L 3.5-5.1 Potassium Serum ATHE NA ([facility]) chloride level 114 mEq/L 98-107 Above high normal Chloride Level [facility] ([facility]) carbon dioxide level 11 mEq/L 21-32 Below low normal Carbon Di oxide Level [facility]ILD ([facility]) anion gap 17 mEq/L 8-16 Above high normal Anion Gap CYNDI ([facility]) calcium level 9.4 mg/dL 8.5-10.1 Calcium Level [facility] ( [facility]) ID Date Data Source [id number] 12/11/2020 12:18:00 AM EST CYNDI ([facility]) Name Value Range Interpretation Code Description Data Claribel rce(s) Supporting Document(s) venous pH 7.171 units 7.330-7.430 Below low normal Venous pH CYNDI ([facility]) venous partial pressure CO2 26.9 mmHg 38.0-50.0 Below low nor mal Venous Partial Pressure CO2 CYNDI ([facility]) venous partial pressure O2 98.1 mmHg 30.0-50.0 Above high nor mal Venous Partial Pressure O2 CYNDI ([facility]) venous total CO2 10.4 mEq/L 24.0-28.0 Below low normal Venous Total CO2 CYNDI ([facility]) venous HCO3 9.6 mEq/L 23.0-27.0 Below low normal Venous HCO3 CYNDI ([facility]) venous base excess -2.0-2.0 Below low normal Venous Base Excess CYNDI ([facility]) venous standard HCO3 11.7 mEq/L Venous Standard HCO3 CYNDI ([facility]) venous O2 saturation 97.6 % 60.0-80.0 Above high normal Venous O 2 Saturation CYNDI ([facility]) ID Date Data Source [id number] 12/11/2020 12:18:00 AM EST CYNDI ([facility]) Name Value Range Interpretation Code Description Data Claribel rce(s) Supporting Document(s) osmolality serum 311 mOsm/kg 275-295 Above high normal Osmolality Serum CYNDI ([facility]) ID Date Data Source [id number] 12/11/2020 12:18:00 AM EST CYNDI ([facility]) Name Value Range Interpretation Code Description Data Claribel rce(s) Supporting Document(s) phosphorus level 2.4 mg/dL 2.5-4.9 Below low normal Phosphorus Le karma CYNDI ([facility]) ID Date Data Source [id number] 12/11/2020 12:18:00 AM EST CYNDI ([facility]) Name Value Range Interpretation Code Description Data Claribel rce(s) Supporting Document(s) glucose, fasting 129 mg/dL 70-100 Above high normal Glucose, Fas ting CYNDI ([facility]) blood urea nitrogen 26 mg/dL 7-18 Above high normal Blood Ure a Nitrogen CYNDI ([facility]) creatinine for GFR 1.51 mg/dL 0.55-1.30 Above high normal Creatinine for GFR CYNDI ([facility]) glomerular filtration rate >60 Below low normal Mariza merular Filtration Rate CYNDI ([facility]) potassium serum 4.4 mEq/L 3.5-5.1 Potassium Serum ATHE NA ([facility]) sodium level 142 mEq/L 136-145 Sodium Level CYNDI ([facility]) chloride level 114 mEq/L 98-107 Above high normal Chloride Level CYNDI ([facility]) carbon dioxide level 11 mEq/L 21-32 Below low normal Carbon Di oxide Level [facility] ([facility]) anion gap 17 mEq/L 8-16 Above high normal Anion Gap CYNDI ([facility]) calcium level 9.4 mg/dL 8.5-10.1 Calcium Level [facility] ( [facility]) ID Date Data Source [id number] 12/11/2020 12:18:00 AM EST CYNDI ([facility]) Name Value Range Interpretation Code Description Data Claribel rce(s) Supporting Document(s) venous partial pressure CO2 26.9 mmHg 38.0-50.0 Below low nor mal Venous Partial Pressure CO2 CYNDI ([facility]) venous pH 7.171 units 7.330-7.430 Below low normal Venous pH [facility] ([facility]) venous partial pressure O2 98.1 mmHg 30.0-50.0 Above high nor mal Venous Partial Pressure O2 CYNDI ([facility]) venous total CO2 10.4 mEq/L 24.0-28.0 Below low normal Venous Total CO2 CYNDI ([facility]) venous base excess -2.0-2.0 Below low normal Venous Base Excess CYNDI ([facility]) venous HCO3 9.6 mEq/L 23.0-27.0 Below low normal Venous HCO3 CYNDI ([facility]) venous standard HCO3 11.7 mEq/L Venous Standard HCO3 CNYDI ([facility]) venous O2 saturation 97.6 % 60.0-80.0 Above high normal Venous O 2 Saturation CYNDI ([facility]) ID Date Data Source [id number] 12/11/2020 12:18:00 AM EST CYNDI ([facility]) Name Value Range Interpretation Code Description Data Claribel rce(s) Supporting Document(s) osmolality serum 311 mOsm/kg 275-295 Above high normal Osmolality Serum [facility] ([facility]) ID Date Data Source [id number] 12/11/2020 12:18:00 AM EST CYNDI ([facility]) Name Value Range Interpretation Code Description Data Claribel rce(s) Supporting Document(s) phosphorus level 2.4 mg/dL 2.5-4.9 Below low normal Phosphorus Le karma CYNDI ([facility]) ID Date Data Source [id number] 12/11/2020 12:18:00 AM EST CYNDI ([facility]) Name Value Range Interpretation Code Description Data Claribel rce(s) Supporting Document(s) glucose, fasting 129 mg/dL 70-100 Above high normal Glucose, Fas ting CYNDI ([facility]) blood urea nitrogen 26 mg/dL 7-18 Above high normal Blood Ure a Nitrogen CYNDI ([facility]) creatinine for GFR 1.51 mg/dL 0.55-1.30 Above high normal Creatinine for GFR CYNDI ([facility]) glomerular filtration rate >60 Below low normal Mariza merular Filtration Rate CYNDI ([facility]) sodium level 142 mEq/L 136-145 Sodium Level CYNDI ([facility]) potassium serum 4.4 mEq/L 3.5-5.1 Potassium Serum ATHE NA ([facility]) chloride level 114 mEq/L 98-107 Above high normal Chloride Level CYNDI ([facility]) carbon dioxide level 11 mEq/L 21-32 Below low normal Carbon Di oxide Level CYNDI ([facility]) anion gap 17 mEq/L 8-16 Above high normal Anion Gap CYNDI ([facility]) calcium level 9.4 mg/dL 8.5-10.1 Calcium Level CYNDI ( [facility]) ID Date Data Source [id number] 12/11/2020 12:18:00 AM EST CYNDI ([facility]) Name Value Range Interpretation Code Description Data Claribel rce(s) Supporting Document(s) venous partial pressure CO2 26.9 mmHg 38.0-50.0 Below low nor mal Venous Partial Pressure CO2 CYNDI ([facility]) venous pH 7.171 units 7.330-7.430 Below low normal Venous pH CYNDI ([facility]) venous partial pressure O2 98.1 mmHg 30.0-50.0 Above high nor mal Venous Partial Pressure O2 CYNDI ([facility]) venous total CO2 10.4 mEq/L 24.0-28.0 Below low normal Venous Total CO2 CYNDI ([facility]) venous HCO3 9.6 mEq/L 23.0-27.0 Below low normal Venous HCO3 CYNDI ([facility]) venous base excess -2.0-2.0 Below low normal Venous Base Excess CYNDI ([facility]) venous standard HCO3 11.7 mEq/L Venous Standard HCO3 CYNDI ([facility]) venous O2 saturation 97.6 % 60.0-80.0 Above high normal Venous O 2 Saturation CYNDI ([facility]) ID Date Data Source [id number] 12/11/2020 12:18:00 AM EST CYNDI ([facility]) Name Value Range Interpretation Code Description Data Claribel rce(s) Supporting Document(s) osmolality serum 311 mOsm/kg 275-295 Above high normal Osmolality Serum CYNDI ([facility]) ID Date Data Source [id number] 12/11/2020 12:18:00 AM EST CYNDI ([facility]) Name Value Range Interpretation Code Description Data Claribel rce(s) Supporting Document(s) phosphorus level 2.4 mg/dL 2.5-4.9 Below low normal Phosphorus Le karma CYNDI ([facility]) ID Date Data Source [id number] 12/11/2020 12:18:00 AM EST CYNDI ([facility]) Name Value Range Interpretation Code Description Data Claribel rce(s) Supporting Document(s) glucose, fasting 129 mg/dL 70-100 Above high normal Glucose, Fas ting CYNDI ([facility]) blood urea nitrogen 26 mg/dL 7-18 Above high normal Blood Ure a Nitrogen CYNDI ([facility]) creatinine for GFR 1.51 mg/dL 0.55-1.30 Above high normal Creatinine for GFR CYNDI ([facility]) glomerular filtration rate >60 Below low normal Mariza merular Filtration Rate CYNDI ([facility]) sodium level 142 mEq/L 136-145 Sodium Level CYNDI ([facility]) potassium serum 4.4 mEq/L 3.5-5.1 Potassium Serum ATHE NA ([facility]) carbon dioxide level 11 mEq/L 21-32 Below low normal Carbon Di oxide Level CYNDI ([facility]) chloride level 114 mEq/L 98-107 Above high normal Chloride Level CYNDI ([facility]) anion gap 17 mEq/L 8-16 Above high normal Anion Gap CYNDI ([facility]) calcium level 9.4 mg/dL 8.5-10.1 Calcium Level [facility] ( [facility]) ID Date Data Source [id number] 12/11/2020 12:18:00 AM EST CYNDI ([facility]) Name Value Range Interpretation Code Description Data Claribel rce(s) Supporting Document(s) venous pH 7.171 units 7.330-7.430 Below low normal Venous pH CYNDI ([facility]) venous partial pressure CO2 26.9 mmHg 38.0-50.0 Below low nor mal Venous Partial Pressure CO2 CYNDI ([facility]) venous partial pressure O2 98.1 mmHg 30.0-50.0 Above high nor mal Venous Partial Pressure O2 CYNDI ([facility]) venous HCO3 9.6 mEq/L 23.0-27.0 Below low normal Venous HCO3 CYNDI ([facility]) venous total CO2 10.4 mEq/L 24.0-28.0 Below low normal Venous Total CO2 CYNDI ([facility]) venous base excess -2.0-2.0 Below low normal Venous Base Excess [facility] ([facility]) venous standard HCO3 11.7 mEq/L Venous Standard HCO3 [facility] ([facility]) venous O2 saturation 97.6 % 60.0-80.0 Above high normal Venous O 2 Saturation [facility] ([facility]) ID Date Data Source [id number] 12/11/2020 12:18:00 AM EST [facility] ([facility]) Name Value Range Interpretation Code Description Data Claribel rce(s) Supporting Document(s) osmolality serum 311 mOsm/kg 275-295 Above high normal Osmolality Serum [facility] ([facility]) ID Date Data Source [id number] 12/11/2020 12:18:00 AM EST [facility] ([facility]) Name Value Range Interpretation Code Description Data Claribel rce(s) Supporting Document(s) phosphorus level 2.4 mg/dL 2.5-4.9 Below low normal Phosphorus Le karma CYNDI ([facility]) ID Date Data Source [id number] 12/11/2020 12:18:00 AM EST CYNDI ([facility]) Name Value Range Interpretation Code Description Data Claribel rce(s) Supporting Document(s) glucose, fasting 129 mg/dL 70-100 Above high normal Glucose, Fas ting CYNDI ([facility]) blood urea nitrogen 26 mg/dL 7-18 Above high normal Blood Ure a Nitrogen CYNDI ([facility]) creatinine for GFR 1.51 mg/dL 0.55-1.30 Above high normal Creatinine for GFR CYNDI ([facility]) glomerular filtration rate >60 Below low normal Mariza merular Filtration Rate CYNDI ([facility]) sodium level 142 mEq/L 136-145 Sodium Level CYNDI ([facility]) potassium serum 4.4 mEq/L 3.5-5.1 Potassium Serum ATHE NA ([facility]) chloride level 114 mEq/L 98-107 Above high normal Chloride Level CYNDI ([facility]) carbon dioxide level 11 mEq/L 21-32 Below low normal Carbon Di oxide Level CYNDI ([facility]) anion gap 17 mEq/L 8-16 Above high normal Anion Gap CYNDI ([facility]) calcium level 9.4 mg/dL 8.5-10.1 Calcium Level [facility] ( [facility]) ID Date Data Source [id number] 12/11/2020 12:18:00 AM EST [facility] ([facility]) Name Value Range Interpretation Code Description Data Claribel rce(s) Supporting Document(s) venous pH 7.171 units 7.330-7.430 Below low normal Venous pH [facility] ([facility]) venous partial pressure CO2 26.9 mmHg 38.0-50.0 Below low nor mal Venous Partial Pressure CO2 [facility] ([facility]) venous partial pressure O2 98.1 mmHg 30.0-50.0 Above high nor mal Venous Partial Pressure O2 CYNDI ([facility]) venous total CO2 10.4 mEq/L 24.0-28.0 Below low normal Venous Total CO2 CYNDI ([facility]) venous HCO3 9.6 mEq/L 23.0-27.0 Below low normal Venous HCO3 [facility] ([facility]) venous base excess -2.0-2.0 Below low normal Venous Base Excess [facility] ([facility]) venous standard HCO3 11.7 mEq/L [facility] [place] venous O2 saturation 97.6 % 60.0-80.0 Above high normal Venous O 2 Saturation [facility] ([facility]) ID Date Data Source [id number] 12/11/2020 12:18:00 AM EST CYNDI ([facility]) Name Value Range Interpretation Code Description Data Claribel rce(s) Supporting Document(s) osmolality serum 311 mOsm/kg 275-295 Above high normal Osmolality Serum CYNDI ([facility]) ID Date Data Source [id number] 12/11/2020 12:18:00 AM EST CYNDI ([facility]) Name Value Range Interpretation Code Description Data Claribel rce(s) Supporting Document(s) phosphorus level 2.4 mg/dL 2.5-4.9 Below low normal Phosphorus Le karma CYNDI ([facility]) ID Date Data Source [id number] 12/11/2020 12:18:00 AM EST CYNDI ([facility]) Name Value Range Interpretation Code Description Data Claribel rce(s) Supporting Document(s) glucose, fasting 129 mg/dL 70-100 Above high normal Glucose, Fas ting CYNDI ([facility]) blood urea nitrogen 26 mg/dL 7-18 Above high normal Blood Ure a Nitrogen CYNDI ([facility]) creatinine for GFR 1.51 mg/dL 0.55-1.30 Above high normal Creatinine for GFR CYNDI ([facility]) glomerular filtration rate >60 Below low normal Mariza merular Filtration Rate CYNDI ([facility]) sodium level 142 mEq/L 136-145 Sodium Level CYNDI ([facility]) potassium serum 4.4 mEq/L 3.5-5.1 Potassium Serum ATHE NA ([facility]) chloride level 114 mEq/L 98-107 Above high normal Chloride Level CYNDI ([facility]) carbon dioxide level 11 mEq/L 21-32 Below low normal Carbon Di oxide Level CYNDI ([facility]) anion gap 17 mEq/L 8-16 Above high normal Anion Gap CYNDI ([facility]) calcium level 9.4 mg/dL 8.5-10.1 Calcium Level CYNDI ( [facility]) ID Date Data Source [id number] 12/11/2020 12:18:00 AM EST [facility] ([facility]) Name Value Range Interpretation Code Description Data Claribel rce(s) Supporting Document(s) venous pH 7.171 units 7.330-7.430 Below low normal Venous pH CYNDI ([facility]) venous partial pressure CO2 26.9 mmHg 38.0-50.0 Below low nor mal Venous Partial Pressure CO2 [facility] ([facility]) venous partial pressure O2 98.1 mmHg 30.0-50.0 Above high nor mal Venous Partial Pressure O2 [facility] ([facility]) venous total CO2 10.4 mEq/L 24.0-28.0 Below low normal Venous Total CO2 [facility] ([facility]) venous HCO3 9.6 mEq/L 23.0-27.0 Below low normal Venous HCO3 [facility] ([facility]) venous base excess -2.0-2.0 Below low normal Venous Base Excess [facility] ([facility]) venous standard HCO3 11.7 mEq/L Venous Standard HCO3 [facility] ([facility]) venous O2 saturation 97.6 % 60.0-80.0 Above high normal Venous O 2 Saturation [facility]) ID Date Data Source [id number] 12/11/2020 12:08:00 AM EST [facility] ([facility]) Name Value Range Interpretation Code Description Data Claribel rce(s) Supporting Document(s) bedside glucose 118 mg/dL 70-105 Above high normal Bedside Gluco se [facility] ([facility]) ID Date Data Source [id number] 12/11/2020 12:08:00 AM EST [facility]) Name Value Range Interpretation Code Description Data Claribel rce(s) Supporting Document(s) bedside glucose 118 mg/dL 70-105 Above high normal Bedside Gluco se [facility] ([facility]) ID Date Data Source [id number] 12/11/2020 12:08:00 AM EST CYNDI ([facility]) Name Value Range Interpretation Code Description Data Claribel rce(s) Supporting Document(s) bedside glucose 118 mg/dL 70-105 Above high normal Bedside Gluco se CYNDI ([facility]) ID Date Data Source [id number] 12/11/2020 12:08:00 AM EST CYNDI ([facility]) Name Value Range Interpretation Code Description Data Claribel rce(s) Supporting Document(s) bedside glucose 118 mg/dL 70-105 Above high normal Bedside Gluco se CYNDI ([facility]) ID Date Data Source [id number] 12/11/2020 12:08:00 AM EST CYNDI ([facility]) Name Value Range Interpretation Code Description Data Claribel rce(s) Supporting Document(s) bedside glucose 118 mg/dL 70-105 Above high normal Bedside Gluco se CYNDI ([facility]) ID Date Data Source [id number] 12/11/2020 12:08:00 AM EST CYNDI ([facility]) Name Value Range Interpretation Code Description Data Claribel rce(s) Supporting Document(s) bedside glucose 118 mg/dL 70-105 Above high normal Bedside Gluco se CYNDI ([facility]) ID Date Data Source [id number] 12/10/2020 11:06:00 PM EST CYNDI ([facility]) Name Value Range Interpretation Code Description Data Claribel rce(s) Supporting Document(s) bedside glucose 102 mg/dL 70-105 Bedside Glucose ATHE NA ([facility]) ID Date Data Source [id number] 12/10/2020 11:06:00 PM EST CYNDI ([facility]) Name Value Range Interpretation Code Description Data Claribel rce(s) Supporting Document(s) bedside glucose 102 mg/dL 70-105 Bedside Glucose ATHJuan Carlos MCKEON ([facility]) ID Date Data Source [id number] 12/10/2020 11:06:00 PM EST CYNDI ([facility]) Name Value Range Interpretation Code Description Data Claribel rce(s) Supporting Document(s) bedside glucose 102 mg/dL 70-105 Bedside Glucose ATHE LINDA ([facility]) ID Date Data Source [id number] 12/10/2020 11:06:00 PM EST CYNDI ([facility]) Name Value Range Interpretation Code Description Data Claribel rce(s) Supporting Document(s) bedside glucose 102 mg/dL 70-105 Bedside Glucose ATHJuan Carlos MCKEON ([facility]) ID Date Data Source [id number] 12/10/2020 11:06:00 PM EST CYNDI ([facility]) Name Value Range Interpretation Code Description Data Claribel rce(s) Supporting Document(s) bedside glucose 102 mg/dL 70-105 Bedside Glucose ATHJuan Carlos MCKEON ([facility]) ID Date Data Source [id number] 12/10/2020 11:06:00 PM EST CYNDI ([facility]) Name Value Range Interpretation Code Description Data Claribel rce(s) Supporting Document(s) bedside glucose 102 mg/dL 70-105 Bedside Glucose ATHE LINDA ([facility]) ID Date Data Source [id number] 12/10/2020 09:50:00 PM EST CYNDI ([facility]) Name Value Range Interpretation Code Description Data Claribel rce(s) Supporting Document(s) venous pH 7.294 units 7.330-7.430 Below low normal Venous pH CYNDI ([facility]) venous partial pressure O2 213.7 mmHg 30.0-50.0 Above high nor mal Venous Partial Pressure O2 CYNDI ([facility]) venous partial pressure CO2 14.3 mmHg 38.0-50.0 Below low nor mal Venous Partial Pressure CO2 CY[facility]I ([facility]) venous total CO2 7.2 mEq/L 24.0-28.0 Below low normal Venous Total CO2 CY[facility]I ([facility]) venous HCO3 6.8 mEq/L 23.0-27.0 Below low normal Venous HCO3 [facility]I ([facility]) venous base excess -2.0-2.0 Below low normal Venous Base Excess CY[facility]I ([facility]) venous O2 saturation 99.4 % 60.0-80.0 Above high normal Venous O 2 Saturation CY[facility]I ([facility]) venous standard HCO3 12.3 mEq/L Venous Standard HCO3 [facility]I ([facility]) venous site unknown Venous Site CYNDI ([facility]) ID Date Data Source [id number] 12/10/2020 09:50:00 PM EST CYNDI ([facility]) Name Value Range Interpretation Code Description Data Claribel rce(s) Supporting Document(s) venous pH 7.294 units 7.330-7.430 Below low normal Venous pH CYNDI ([facility]) venous partial pressure O2 213.7 mmHg 30.0-50.0 Above high nor mal Venous Partial Pressure O2 [facility] ([facility]) venous total CO2 7.2 mEq/L 24.0-28.0 Below low normal Venous Total CO2 [facility] ([facility]) venous partial pressure CO2 14.3 mmHg 38.0-50.0 Below low nor mal Venous Partial Pressure CO2 [facility] ([facility]) venous base excess -2.0-2.0 Below low normal Venous Base Excess [facility] ([facility]) venous HCO3 6.8 mEq/L 23.0-27.0 Below low normal Venous HCO3 [facility] ([facility]) venous standard HCO3 12.3 mEq/L Venous Standard HCO3 [facility] ([facility]) venous O2 saturation 99.4 % 60.0-80.0 Above high normal Venous O 2 Saturation [facility] ([facility]) venous site unknown Venous Site [facility] ([facility]) ID Date Data Source [id number] 12/10/2020 09:50:00 PM EST [facility] ([facility]) Name Value Range Interpretation Code Description Data Claribel rce(s) Supporting Document(s) venous pH 7.294 units 7.330-7.430 Below low normal Venous pH [facility] ([facility]) venous partial pressure CO2 14.3 mmHg 38.0-50.0 Below low nor mal Venous Partial Pressure CO2 [facility] ([facility]) venous HCO3 6.8 mEq/L 23.0-27.0 Below low normal Venous HCO3 [facility] ([facility]) venous total CO2 7.2 mEq/L 24.0-28.0 Below low normal Venous Total CO2 [facility] ([facility]) venous partial pressure O2 213.7 mmHg 30.0-50.0 Above high nor mal Venous Partial Pressure O2 [facility] ([facility]) venous base excess -2.0-2.0 Below low normal Venous Base Excess [facility] ([facility]) venous site unknown Venous Site [facility] ([facility]) venous O2 saturation 99.4 % 60.0-80.0 Above high normal Venous O 2 Saturation [facility] ([facility]) venous standard HCO3 12.3 mEq/L Venous Standard HCO3 [facility] ([facility]) ID Date Data Source [id number] 12/10/2020 09:50:00 PM EST [facility] ([facility]) Name Value Range Interpretation Code Description Data Claribel rce(s) Supporting Document(s) venous partial pressure O2 213.7 mmHg 30.0-50.0 Above high nor mal Venous Partial Pressure O2 [facility] ([facility]) venous pH 7.294 units 7.330-7.430 Below low normal Venous pH [facility] ([facility]) venous total CO2 7.2 mEq/L 24.0-28.0 Below low normal Venous Total CO2 [facility] ([facility]) venous partial pressure CO2 14.3 mmHg 38.0-50.0 Below low nor mal Venous Partial Pressure CO2 [facility] ([facility]) venous standard HCO3 12.3 mEq/L Venous Standard HCO3 [facility] ([facility]) venous HCO3 6.8 mEq/L 23.0-27.0 Below low normal Venous HCO3 [facility] ([facility]) venous base excess -2.0-2.0 Below low normal Venous Base Excess [facility] ([facility]) venous site unknown Venous Site [facility] ([facility]) venous O2 saturation 99.4 % 60.0-80.0 Above high normal Venous O 2 Saturation [facility] ([facility]) ID Date Data Source [id number] 12/10/2020 09:50:00 PM EST [facility] ([facility]) Name Value Range Interpretation Code Description Data Claribel rce(s) Supporting Document(s) venous pH 7.294 units 7.330-7.430 Below low normal Venous pH [facility] ([facility]) venous HCO3 6.8 mEq/L 23.0-27.0 Below low normal Venous HCO3 [facility] ([facility]) venous partial pressure O2 213.7 mmHg 30.0-50.0 Above high nor mal Venous Partial Pressure O2 [facility] ([facility]) venous partial pressure CO2 14.3 mmHg 38.0-50.0 Below low nor mal Venous Partial Pressure CO2 [facility] ([facility]) venous total CO2 7.2 mEq/L 24.0-28.0 Below low normal Venous Total CO2 [facility] ([facility]) venous base excess -2.0-2.0 Below low normal Venous Base Excess [facility] ([facility]) venous standard HCO3 12.3 mEq/L Venous Standard HCO3 [facility] ([facility]) venous O2 saturation 99.4 % 60.0-80.0 Above high normal Venous O 2 Saturation [facility] ([facility]) venous site unknown Venous Site [facility] ([facility]) ID Date Data Source [id number] 12/10/2020 09:50:00 PM EST [facility] ([facility]) Name Value Range Interpretation Code Description Data Claribel rce(s) Supporting Document(s) venous pH 7.294 units 7.330-7.430 Below low normal Venous pH [facility] ([facility]) venous partial pressure CO2 14.3 mmHg 38.0-50.0 Below low nor mal Venous Partial Pressure CO2 [facility] ([facility]) venous partial pressure O2 213.7 mmHg 30.0-50.0 Above high nor mal Venous Partial Pressure O2 [facility] ([facility]) venous standard HCO3 12.3 mEq/L Venous Standard HCO3 [facility] ([facility]) venous total CO2 7.2 mEq/L 24.0-28.0 Below low normal Venous Total CO2 [facility] ([facility]) venous HCO3 6.8 mEq/L 23.0-27.0 Below low normal Venous HCO3 [facility] ([facility]) venous base excess -2.0-2.0 Below low normal Venous Base Excess [facility] ([facility]) venous site unknown Venous Site [facility] ([facility]) venous O2 saturation 99.4 % 60.0-80.0 Above high normal Venous O 2 Saturation [facility] ([facility]) ID Date Data Source [id number] 12/10/2020 09:34:00 PM EST [facility] ([facility]) Name Value Range Interpretation Code Description Data Claribel rce(s) Supporting Document(s) bedside glucose 126 mg/dL 70-105 Above high normal Bedside Gluco se [facility]) ID Date Data Source [id number] 12/10/2020 09:34:00 PM EST [facility] ([facility]) Name Value Range Interpretation Code Description Data Claribel rce(s) Supporting Document(s) bedside glucose 126 mg/dL 70-105 Above high normal Bedside Gluco se [facility]) ID Date Data Source [id number] 12/10/2020 09:34:00 PM EST [facility]) Name Value Range Interpretation Code Description Data Claribel rce(s) Supporting Document(s) bedside glucose 126 mg/dL 70-105 Above high normal Bedside Gluco se [facility] ([facility]) ID Date Data Source [id number] 12/10/2020 09:34:00 PM EST [facility] ([facility]) Name Value Range Interpretation Code Description Data Claribel rce(s) Supporting Document(s) bedside glucose 126 mg/dL 70-105 Above high normal Bedside Gluco se [facility]) ID Date Data Source [id number] 12/10/2020 09:34:00 PM EST [facility]) Name Value Range Interpretation Code Description Data Claribel rce(s) Supporting Document(s) bedside glucose 126 mg/dL 70-105 Above high normal [facility] [place] [place] Date Data Source [id number] 12/10/2020 09:34:00 PM EST CY[facility]) Name Value Range Interpretation Code Description Data Claribel rce(s) Supporting Document(s) bedside glucose 126 mg/dL 70-105 Above high normal Bedside Gluco se [facility]) ID Date Data Source [id number] 12/10/2020 08:54:00 PM EST CY[facility]) Name Value Range Interpretation Code Description Data Claribel rce(s) Supporting Document(s) ID Date Data Source [id number] 12/10/2020 08:54:00 PM EST CY[facility]) Name Value Range Interpretation Code Description Data Claribel rce(s) Supporting Document(s) ID Date Data Source [id number] 12/10/2020 08:54:00 PM EST CY[facility]) Name Value Range Interpretation Code Description Data Claribel rce(s) Supporting Document(s) ID Date Data Source [id number] 12/10/2020 08:54:00 PM EST [facility] ([facility]) Name Value Range Interpretation Code Description Data Claribel rce(s) Supporting Document(s) ID Date Data Source [id number] 12/10/2020 08:54:00 PM EST CY[facility] ([facility]) Name Value Range Interpretation Code Description Data Claribel rce(s) Supporting Document(s) ID Date Data Source [id number] 12/10/2020 08:54:00 PM EST CY[facility] ([facility]) Name Value Range Interpretation Code Description Data Claribel rce(s) Supporting Document(s) ID Date Data Source [id number] 12/10/2020 08:35:00 PM EST CY[facility] ([facility]) Name Value Range Interpretation Code Description Data Claribel rce(s) Supporting Document(s) ID Date Data Source [id number] 12/10/2020 08:35:00 PM EST CY[facility] ([facility]) Name Value Range Interpretation Code Description Data Claribel rce(s) Supporting Document(s) osmolality serum 315 mOsm/kg 275-295 Above high normal Osmolality Serum [facility] ([facility]) ID Date Data Source [id number] 12/10/2020 08:35:00 PM EST [facility] ([facility]) Name Value Range Interpretation Code Description Data Claribel rce(s) Supporting Document(s) phosphorus level 2.5 mg/dL 2.5-4.9 Phosphorus Level AT [facility] ([facility]) ID Date Data Source [id number] 12/10/2020 08:35:00 PM EST CY[facility]) Name Value Range Interpretation Code Description Data Claribel rce(s) Supporting Document(s) glucose, fasting 222 mg/dL 70-100 Above high normal Glucose, Fas ting [facility] ([facility]) blood urea nitrogen 27 mg/dL 7-18 Above high normal Blood Ure a Nitrogen [facility] ([facility]) creatinine for GFR 1.67 mg/dL 0.55-1.30 Above high normal Creatinine for GFR [facility] ([facility]) glomerular filtration rate >60 Below low normal Mariza merular Filtration Rate CY[facility] ([facility]) sodium level 138 mEq/L 136-145 Sodium Level CY[facility] (No [facility]) potassium serum 4.7 mEq/L 3.5-5.1 Potassium Serum ATHE NA ([facility]) chloride level 110 mEq/L 98-107 Above high normal Chloride Level [facility] ([facility]) carbon dioxide level 10 mEq/L 21-32 Below low normal Carbon Di oxide Level [facility] ([facility]) calcium level 9.9 mg/dL 8.5-10.1 Calcium Level [facility] ( [facility]) anion gap 18 mEq/L 8-16 Above high normal Anion Gap [facility] ([facility]) ID Date Data Source [id number] 12/10/2020 08:35:00 PM EST [facility] ([facility]) Name Value Range Interpretation Code Description Data Claribel rce(s) Supporting Document(s) glucose, fasting 222 mg/dL 70-100 Above high normal Glucose, Fas ting [facility] ([facility]) blood urea nitrogen 27 mg/dL 7-18 Above high normal Blood Ure a Nitrogen [facility] ([facility]) sodium level 138 mEq/L 136-145 Sodium Level [facility] ([facility]) creatinine for GFR 1.67 mg/dL 0.55-1.30 Above high normal Creatinine for GFR [facility] ([facility]) glomerular filtration rate >60 Below low normal Mariza merular Filtration Rate [facility] ([facility]) carbon dioxide level 10 mEq/L 21-32 Below low normal Carbon Di oxide Level [facility] ([facility]) potassium serum 4.7 mEq/L 3.5-5.1 Potassium Serum ATHE NA ([facility]) chloride level 110 mEq/L 98-107 Above high normal Chloride Level [facility] ([facility]) calcium level 9.9 mg/dL 8.5-10.1 Calcium Level [facility] ( [facility]) anion gap 18 mEq/L 8-16 Above high normal Anion Gap [facility] ([facility]) ID Date Data Source [id number] 12/10/2020 08:35:00 PM EST CY[facility] ([facility]) Name Value Range Interpretation Code Description Data Claribel rce(s) Supporting Document(s) ID Date Data Source [id number] 12/10/2020 08:35:00 PM EST CY[facility] ([facility]) Name Value Range Interpretation Code Description Data Claribel rce(s) Supporting Document(s) osmolality serum 315 mOsm/kg 275-295 Above high normal Osmolality Serum [facility] ([facility]) ID Date Data Source [id number] 12/10/2020 08:35:00 PM EST CY[facility] ([facility]) Name Value Range Interpretation Code Description Data Claribel rce(s) Supporting Document(s) phosphorus level 2.5 mg/dL 2.5-4.9 Phosphorus Level AT [facility] ([facility]) ID Date Data Source [id number] 12/10/2020 08:35:00 PM EST CY[facility] ([facility]) Name Value Range Interpretation Code Description Data Claribel rce(s) Supporting Document(s) blood urea nitrogen 27 mg/dL 7-18 Above high normal Blood Ure a Nitrogen [facility] ([facility]) creatinine for GFR 1.67 mg/dL 0.55-1.30 Above high normal Creatinine for GFR [facility] ([facility]) glucose, fasting 222 mg/dL 70-100 Above high normal Glucose, Fas ting [facility] ([facility]) glomerular filtration rate >60 Below low normal Mariza merular Filtration Rate [facility] ([facility]) potassium serum 4.7 mEq/L 3.5-5.1 Potassium Serum ATHE NA ([facility]) sodium level 138 mEq/L 136-145 Sodium Level [facility] ([facility]) chloride level 110 mEq/L 98-107 Above high normal Chloride Level [facility] ([facility] carbon dioxide level 10 mEq/L 21-32 Below low normal Carbon Di oxide Level [facility] ([facility]) anion gap 18 mEq/L 8-16 Above high normal Anion Gap [facility] ([facility]) calcium level 9.9 mg/dL 8.5-10.1 Calcium Level [facility] ( [facility]) ID Date Data Source [id number] 12/10/2020 08:35:00 PM EST [facility] ([facility]) Name Value Range Interpretation Code Description Data Claribel rce(s) Supporting Document(s) ID Date Data Source [id number] 12/10/2020 08:35:00 PM EST CY[facility] ([facility]) Name Value Range Interpretation Code Description Data Clarbiel rce(s) Supporting Document(s) osmolality serum 315 mOsm/kg 275-295 Above high normal Osmolality Serum [facility] ([facility]) ID Date Data Source [id number] 12/10/2020 08:35:00 PM EST [facility] ([facility]) Name Value Range Interpretation Code Description Data Claribel rce(s) Supporting Document(s) phosphorus level 2.5 mg/dL 2.5-4.9 Phosphorus Level AT [facility] ([facility]) ID Date Data Source [id number] 12/10/2020 08:35:00 PM EST [facility] ([facility]) Name Value Range Interpretation Code Description Data Claribel rce(s) Supporting Document(s) glucose, fasting 222 mg/dL 70-100 Above high normal Glucose, Fas ting [facility] ([facility]) glomerular filtration rate >60 Below low normal Mariza merular Filtration Rate [facility] ([facility]) blood urea nitrogen 27 mg/dL 7-18 Above high normal Blood Ure a Nitrogen [facility] ([facility]) creatinine for GFR 1.67 mg/dL 0.55-1.30 Above high normal Creatinine for GFR [facility] ([facility]) chloride level 110 mEq/L 98-107 Above high normal Chloride Level [facility] ([facility]) potassium serum 4.7 mEq/L 3.5-5.1 Potassium Serum ATHE NA ([facility]) sodium level 138 mEq/L 136-145 Sodium Level [facility] ([facility]) anion gap 18 mEq/L 8-16 Above high normal Anion Gap [facility] ([facility]) carbon dioxide level 10 mEq/L 21-32 Below low normal Carbon Di oxide Level [facility] ([facility]) calcium level 9.9 mg/dL 8.5-10.1 Calcium Level [facility] ( [facility]) ID Date Data Source [id number] 12/10/2020 08:35:00 PM EST [facility] ([facility]) Name Value Range Interpretation Code Description Data Claribel rce(s) Supporting Document(s) ID Date Data Source [id number] 12/10/2020 08:35:00 PM EST CY[facility] ([facility]) Name Value Range Interpretation Code Description Data Claribel rce(s) Supporting Document(s) osmolality serum 315 mOsm/kg 275-295 Above high normal Osmolality Serum [facility] ([facility]) ID Date Data Source [id number] 12/10/2020 08:35:00 PM EST [facility] ([facility]) Name Value Range Interpretation Code Description Data Claribel rce(s) Supporting Document(s) phosphorus level 2.5 mg/dL 2.5-4.9 Phosphorus Level AT [facility]) ID Date Data Source [id number] 12/10/2020 08:35:00 PM EST [facility] ([facility]) Name Value Range Interpretation Code Description Data Claribel rce(s) Supporting Document(s) blood urea nitrogen 27 mg/dL 7-18 Above high normal Blood Ure a Nitrogen [facility] ([facility]) glucose, fasting 222 mg/dL 70-100 Above high normal Glucose, Fas ting [facility] ([facility]) creatinine for GFR 1.67 mg/dL 0.55-1.30 Above high normal Creatinine for GFR [facility] ([facility]) sodium level 138 mEq/L 136-145 Sodium Level [facility] (No [facility]) glomerular filtration rate >60 Below low normal Mariza merular Filtration Rate [facility] ([facility]) potassium serum 4.7 mEq/L 3.5-5.1 Potassium Serum ATHE NA ([facility]) calcium level 9.9 mg/dL 8.5-10.1 Calcium Level [facility] ( [facility]) anion gap 18 mEq/L 8-16 Above high normal Anion Gap [facility] ([facility]) carbon dioxide level 10 mEq/L 21-32 Below low normal Carbon Di oxide Level [facility] ([facility]) chloride level 110 mEq/L 98-107 Above high normal Chloride Level [facility] ([facility]) ID Date Data Source [id number] 12/10/2020 08:35:00 PM EST [facility] ([facility]) Name Value Range Interpretation Code Description Data Claribel rce(s) Supporting Document(s) ID Date Data Source [id number] 12/10/2020 08:35:00 PM EST CY[facility] ([facility]) Name Value Range Interpretation Code Description Data Claribel rce(s) Supporting Document(s) osmolality serum 315 mOsm/kg 275-295 Above high normal Osmolality Serum [facility] ([facility]) ID Date Data Source [id number] 12/10/2020 08:35:00 PM EST [facility] ([facility]) Name Value Range Interpretation Code Description Data Claribel rce(s) Supporting Document(s) phosphorus level 2.5 mg/dL 2.5-4.9 Phosphorus Level AT [facility] ([facility]) ID Date Data Source [id number] 12/10/2020 08:35:00 PM EST [facility] ([facility]) Name Value Range Interpretation Code Description Data Claribel rce(s) Supporting Document(s) ID Date Data Source [id number] 12/10/2020 08:35:00 PM EST CY[facility] ([facility]) Name Value Range Interpretation Code Description Data Claribel rce(s) Supporting Document(s) osmolality serum 315 mOsm/kg 275-295 Above high normal Osmolality Serum [facility]) ID Date Data Source [id number] 12/10/2020 08:35:00 PM EST [facility] ([facility]) Name Value Range Interpretation Code Description Data Claribel rce(s) Supporting Document(s) phosphorus level 2.5 mg/dL 2.5-4.9 Phosphorus Level AT [facility] ([facility]) ID Date Data Source [id number] 12/10/2020 08:35:00 PM EST [facility] ([facility]) Name Value Range Interpretation Code Description Data Claribel rce(s) Supporting Document(s) glucose, fasting 222 mg/dL 70-100 Above high normal Glucose, Fas ting [facility] ([facility]) blood urea nitrogen 27 mg/dL 7-18 Above high normal Blood Ure a Nitrogen [facility] ([facility]) glomerular filtration rate >60 Below low normal Mariza merular Filtration Rate [facility] ([facility]) creatinine for GFR 1.67 mg/dL 0.55-1.30 Above high normal Creatinine for GFR [facility] ([facility]) chloride level 110 mEq/L 98-107 Above high normal Chloride Level [facility] ([facility]) sodium level 138 mEq/L 136-145 Sodium Level [facility] ([facility]) carbon dioxide level 10 mEq/L 21-32 Below low normal Carbon Di oxide Level [facility] ([facility]) potassium serum 4.7 mEq/L 3.5-5.1 Potassium Serum ATHE NA ([facility]) calcium level 9.9 mg/dL 8.5-10.1 Calcium Level [facility] ( [facility]) anion gap 18 mEq/L 8-16 Above high normal Anion Gap [facility] ([facility]) ID Date Data Source [id number] 12/10/2020 08:27:00 PM EST CY[facility] ([facility]) Name Value Range Interpretation Code Description Data Claribel rce(s) Supporting Document(s) bedside glucose 206 mg/dL 70-105 Above high normal Bedside Gluco se [facility]) ID Date Data Source [id number] 12/10/2020 08:27:00 PM EST CY[facility] ([facility]) Name Value Range Interpretation Code Description Data Claribel rce(s) Supporting Document(s) bedside glucose 206 mg/dL 70-105 Above high normal [facility] [place] ID Date Data Source [id number] 12/10/2020 08:27:00 PM EST CY[facility]) Name Value Range Interpretation Code Description Data Claribel rce(s) Supporting Document(s) bedside glucose 206 mg/dL 70-105 Above high normal Bedside Gluco se [facility] ([facility]) ID Date Data Source [id number] 12/10/2020 08:27:00 PM EST CY[facility]) Name Value Range Interpretation Code Description Data Claribel rce(s) Supporting Document(s) bedside glucose 206 mg/dL 70-105 Above high normal [facility] [place] ID Date Data Source [id number] 12/10/2020 08:27:00 PM EST CY[facility] ([facility]) Name Value Range Interpretation Code Description Data Claribel rce(s) Supporting Document(s) bedside glucose 206 mg/dL 70-105 Above high normal Bedside Gluco se [facility] ([facility]) ID Date Data Source [id number] 12/10/2020 08:27:00 PM EST CY[facility] ([facility]) Name Value Range Interpretation Code Description Data Claribel rce(s) Supporting Document(s) bedside glucose 206 mg/dL 70-105 Above high normal Bedside Gluco se [facility] ([facility]) ID Date Data Source [id number] 12/10/2020 07:46:00 PM EST [facility] ([facility] [facility]) Name Value Range Interpretation Code Description Data Claribel rce(s) Supporting Document(s) sars covid-19 amplification negative negative Sars Cov id-19 Amplification [facility]) ID Date Data Source [id number] 12/10/2020 07:46:00 PM EST [facility]) Name Value Range Interpretation Code Description Data Claribel rce(s) Supporting Document(s) sars covid-19 amplification negative negative Sars Cov id-19 Amplification [facility]) ID Date Data Source [id number] 12/10/2020 07:46:00 PM EST [facility]) Name Value Range Interpretation Code Description Data Claribel rce(s) Supporting Document(s) sars covid-19 amplification negative negative Sars Cov id-19 Amplification [facility]) ID Date Data Source [id number] 12/10/2020 07:46:00 PM EST [facility]) Name Value Range Interpretation Code Description Data Claribel rce(s) Supporting Document(s) sars covid-19 amplification negative negative Sars Cov id-19 Amplification [facility] ([facility]) ID Date Data Source [id number] 12/10/2020 07:46:00 PM EST [facility]) Name Value Range Interpretation Code Description Data Claribel rce(s) Supporting Document(s) sars covid-19 amplification negative negative Sars Cov id-19 Amplification [facility]) ID Date Data Source [id number] 12/10/2020 07:46:00 PM EST [facility] Name Value Range Interpretation Code Description Data Claribel rce(s) Supporting Document(s) SARS coronavirus 2 RNA [Presence] in Res piratory specimen by ANDREE with probe detection NEGATIVE [facility] This lab was ordered by [facility] a nd reported by [facility]. ID Date Data Source [id number] 12/10/2020 07:46:00 PM EST [facility]) Name Value Range Interpretation Code Description Data Claribel rce(s) Supporting Document(s) sars covid-19 amplification negative negative Sars Cov id-19 Amplification [facility]) ID Date Data Source [id number] 12/10/2020 06:53:00 PM EST [facility]) Name Value Range Interpretation Code Description Data Claribel rce(s) Supporting Document(s) bedside glucose 342 mg/dL 70-105 Above high normal Bedside Gluco se [facility] ([facility]) ID Date Data Source [id number] 12/10/2020 06:53:00 PM EST [facility]) Name Value Range Interpretation Code Description Data Claribel rce(s) Supporting Document(s) bedside glucose 342 mg/dL 70-105 Above high normal Bedside Gluco se [facility]) ID Date Data Source [id number] 12/10/2020 06:53:00 PM EST [facility] ([facility]) Name Value Range Interpretation Code Description Data Claribel rce(s) Supporting Document(s) bedside glucose 342 mg/dL 70-105 Above high normal Bedside Gluco se [facility] ([facility]) ID Date Data Source [id number] 12/10/2020 06:53:00 PM EST [facility] ([facility]) Name Value Range Interpretation Code Description Data Claribel rce(s) Supporting Document(s) bedside glucose 342 mg/dL 70-105 Above high normal Bedside Gluco se [facility] ([facility]) ID Date Data Source [id number] 12/10/2020 06:53:00 PM EST [facility] ([facility]) Name Value Range Interpretation Code Description Data Claribel rce(s) Supporting Document(s) bedside glucose 342 mg/dL 70-105 Above high normal Bedside Gluco se [facility] ([facility]) ID Date Data Source [id number] 12/10/2020 06:53:00 PM EST [facility] ([facility]) Name Value Range Interpretation Code Description Data Claribel rce(s) Supporting Document(s) bedside glucose 342 mg/dL 70-105 Above high normal Bedside Gluco se [facility] ([facility]) ID Date Data Source [id number] 12/10/2020 05:58:00 PM EST [facility] ([facility]) Name Value Range Interpretation Code Description Data Claribel rce(s) Supporting Document(s) lipase 58 U/L 73-393 Below low normal Lipase [facility] ( [facility]) ID Date Data Source [id number] 12/10/2020 05:58:00 PM EST [facility] ([facility]) Name Value Range Interpretation Code Description Data Claribel rce(s) Supporting Document(s) magnesium level 2.3 mg/dL 1.8-2.4 Magnesium Level [facility] NA ([facility]) ID Date Data Source [id number] 12/10/2020 05:58:00 PM EST [facility] ([facility]) Name Value Range Interpretation Code Description Data Claribel rce(s) Supporting Document(s) ALT/SGPT 20 U/L 12-78 ALT/SGPT [facility] ([facility]) AST/SGOT 12 U/L 7-37 AST/SGOT [facility] ([facility]) bilirubin,direct < 0.1 0.0-0.2 Bilirubin,direct AT [facility] ([facility]) bilirubin,total 0.4 mg/dL 0.2-1.0 Bilirubin,total [facility] NA ([facility]) alkaline phosphatase 108 U/L 45-117 Alkaline Phosph atase [facility] ([facility]) albumin 3.7 gm/dL 3.2-5.2 Albumin [facility] ([facility]) total protein 8.2 gm/dL 6.4-8.2 Total Protein [facility] ( [facility]) albumin/globulin ratio 1.2-2.2 Below low normal Albumin /globulin Ratio [facility] ([facility]) ID Date Data Source [id number] 12/10/2020 05:58:00 PM EST [facility] ([facility]) Name Value Range Interpretation Code Description Data Claribel rce(s) Supporting Document(s) lactic acid sepsis protocol 1.2 mmol/L 0.4-2.0 Lactic A bro Sepsis Protocol [facility] ([facility]) ID Date Data Source [id number] 12/10/2020 05:58:00 PM EST [facility] ([facility]) Name Value Range Interpretation Code Description Data Claribel rce(s) Supporting Document(s) red blood count 5.54 10 4.00-5.40 Above high normal Red Blood Cou nt [facility] ([facility]) white blood count 10.7 10 4.0-10.0 Above high normal White Blood Count [facility] ([facility]) hemoglobin 16.3 g/dL 12.0-15.5 Above high normal Hemoglobin [facility] ([facility]) hematocrit 51.1 % 36.0-47.0 Above high normal Hematocrit [facility] ([facility]) mean corpuscular volume 92.2 fL 80.0-96.0 Mean Corpusc ular Volume [facility] ([facility]) mean corpuscular hemoglobin 29.4 pg 27.0-33.0 Mean Cor puscular Hemoglobin [facility] ([facility]) mean corpuscular HGB conc 31.9 g/dL 32.0-36.5 Below low margaux l Mean Corpuscular HGB Conc [facility] ([facility]) red cell distribution width 13.1 % 11.5-14.5 Red Cell Distribution Width [facility] ([facility]) neutrophils % 81.9 % 36.0-66.0 Above high normal Neutrophils % A [facility] ([facility]) platelet count, automated 313 10 150-450 Platelet C ount, Automated [facility] ([facility]) mono % 5.4 % 0.0-5.0 Above high normal [place] % [facility] ([facility]) lymph % 12.0 % 24.0-44.0 Below low normal Lymph % [facility] ( [facility]) eos % 0.0 % 0.0-3.0 Eos % [facility] ([facility]) baso % 0.4 % 0.0-1.0 Baso % [facility] ([facility]) immature granulocyte % 0.3 % 0-3.0 Immature Gran ulocyte % [facility] ([facility]) nucleated red blood cell % 0.0 % 0-0 Nucleated Red Blood Cell % [facility] ([facility]) neutrophils # 8.8 10 1.5-8.5 Above high normal Neutrophils # A [facility] ([facility]) lymph # 1.3 10 1.5-5.0 Below low normal Lymph # [facility] ( [facility]) mono # 0.6 10 0.0-0.8 [place] # [facility] ([facility]) eos # 0.0 10 0.0-0.5 Eos # [facility] ([facility]) baso # 0.0 10 0.0-0.2 Baso # [facility] ([facility]) ID Date Data Source [id number] 12/10/2020 05:58:00 PM EST [facility] ([facility]) Name Value Range Interpretation Code Description Data Claribel rce(s) Supporting Document(s) lipase 58 U/L 73-393 Below low normal Lipase [facility] ( [facility]) ID Date Data Source [id number] 12/10/2020 05:58:00 PM EST [facility] ([facility]) Name Value Range Interpretation Code Description Data Claribel rce(s) Supporting Document(s) magnesium level 2.3 mg/dL 1.8-2.4 Magnesium Level ATHE NA ([facility]) ID Date Data Source [id number] 12/10/2020 05:58:00 PM EST [facility] ([facility]) Name Value Range Interpretation Code Description Data Claribel rce(s) Supporting Document(s) AST/SGOT 12 U/L 7-37 AST/SGOT [facility] ([facility]) alkaline phosphatase 108 U/L 45-117 Alkaline Phosph atase [facility] ([facility]) bilirubin,direct < 0.1 0.0-0.2 Bilirubin,direct AT [facility] ([facility]) bilirubin,total 0.4 mg/dL 0.2-1.0 Bilirubin,total [facility] NA ([facility]) ALT/SGPT 20 U/L 12-78 ALT/SGPT [facility] ([facility]) total protein 8.2 gm/dL 6.4-8.2 Total Protein [facility] ( [facility]) albumin 3.7 gm/dL 3.2-5.2 Albumin [facility] ([facility]) albumin/globulin ratio 1.2-2.2 Below low normal Albumin /globulin Ratio [facility] ([facility]) ID Date Data Source [id number] 12/10/2020 05:58:00 PM EST [facility] ([facility]) Name Value Range Interpretation Code Description Data Claribel rce(s) Supporting Document(s) lactic acid sepsis protocol 1.2 mmol/L 0.4-2.0 Lactic A bro Sepsis Protocol [facility] ([facility]) ID Date Data Source [id number] 12/10/2020 05:58:00 PM EST [facility] ([facility]) Name Value Range Interpretation Code Description Data Claribel rce(s) Supporting Document(s) hemoglobin 16.3 g/dL 12.0-15.5 Above high normal Hemoglobin [facility] ([facility]) red blood count 5.54 10 4.00-5.40 Above high normal Red Blood Cou nt [facility] ([facility]) white blood count 10.7 10 4.0-10.0 Above high normal White Blood Count [facility] ([facility]) mean corpuscular volume 92.2 fL 80.0-96.0 Mean Corpusc ular Volume [facility] ([facility]) hematocrit 51.1 % 36.0-47.0 Above high normal Hematocrit [facility] ([facility]) mean corpuscular HGB conc 31.9 g/dL 32.0-36.5 Below low margaux l Mean Corpuscular HGB Conc [facility] ([facility]) mean corpuscular hemoglobin 29.4 pg 27.0-33.0 Mean Cor puscular Hemoglobin [facility] ([facility]) red cell distribution width 13.1 % 11.5-14.5 Red Cell Distribution Width [facility] ([facility]) lymph % 12.0 % 24.0-44.0 Below low normal Lymph % [facility] ( [facility]) neutrophils % 81.9 % 36.0-66.0 Above high normal Neutrophils % A [facility] ([facility]) platelet count, automated 313 10 150-450 Platelet C ount, Automated [facility] ([facility]) eos % 0.0 % 0.0-3.0 Eos % [facility] ([facility]) baso % 0.4 % 0.0-1.0 Baso % [facility] ([facility]) mono % 5.4 % 0.0-5.0 Above high normal [place] % [facility] ([facility]) nucleated red blood cell % 0.0 % 0-0 Nucleated Red Blood Cell % [facility] ([facility]) immature granulocyte % 0.3 % 0-3.0 Immature Gran ulocyte % [facility] ([facility]) lymph # 1.3 10 1.5-5.0 Below low normal Lymph # [facility] ( [facility]) mono # 0.6 10 0.0-0.8 [place] # [facility] ([facility]) neutrophils # 8.8 10 1.5-8.5 Above high normal Neutrophils # A [facility] ([facility]) eos # 0.0 10 0.0-0.5 Eos # [facility] ([facility]) baso # 0.0 10 0.0-0.2 Baso # [facility] ([facility]) ID Date Data Source [id number] 12/10/2020 05:58:00 PM EST [facility] ([facility]) Name Value Range Interpretation Code Description Data Claribel rce(s) Supporting Document(s) lipase 58 U/L 73-393 Below low normal Lipase [facility] ( [facility]) ID Date Data Source [id number] 12/10/2020 05:58:00 PM EST [facility] ([facility]) Name Value Range Interpretation Code Description Data Claribel rce(s) Supporting Document(s) magnesium level 2.3 mg/dL 1.8-2.4 Magnesium Level ATHE NA ([facility]) ID Date Data Source [id number] 12/10/2020 05:58:00 PM EST [facility] ([facility]) Name Value Range Interpretation Code Description Data Claribel rce(s) Supporting Document(s) ALT/SGPT 20 U/L 12-78 ALT/SGPT [facility] ([facility]) AST/SGOT 12 U/L 7-37 AST/SGOT [facility] ([facility]) bilirubin,direct < 0.1 0.0-0.2 Bilirubin,direct AT [facility] ([facility]) bilirubin,total 0.4 mg/dL 0.2-1.0 Bilirubin,total [facility] NA ([facility]) alkaline phosphatase 108 U/L 45-117 Alkaline Phosph atase [facility] ([facility]) albumin/globulin ratio 1.2-2.2 Below low normal Albumin /globulin Ratio [facility] ([facility]) albumin 3.7 gm/dL 3.2-5.2 Albumin [facility] ([facility]) total protein 8.2 gm/dL 6.4-8.2 Total Protein [facility] ( [facility]) ID Date Data Source [id number] 12/10/2020 05:58:00 PM EST [facility] ([facility]) Name Value Range Interpretation Code Description Data Claribel rce(s) Supporting Document(s) lactic acid sepsis protocol 1.2 mmol/L 0.4-2.0 Lactic A bro Sepsis Protocol [facility] ([facility]) ID Date Data Source [id number] 12/10/2020 05:58:00 PM EST [facility] ([facility]) Name Value Range Interpretation Code Description Data Claribel rce(s) Supporting Document(s) red blood count 5.54 10 4.00-5.40 Above high normal Red Blood Cou nt [facility] ([facility]) white blood count 10.7 10 4.0-10.0 Above high normal White Blood Count [facility] ([facility]) mean corpuscular volume 92.2 fL 80.0-96.0 Mean Corpusc ular Volume [facility] ([facility]) hemoglobin 16.3 g/dL 12.0-15.5 Above high normal Hemoglobin [facility] ([facility]) hematocrit 51.1 % 36.0-47.0 Above high normal Hematocrit [facility] ([facility]) mean corpuscular hemoglobin 29.4 pg 27.0-33.0 Mean Cor puscular Hemoglobin [facility] ([facility]) red cell distribution width 13.1 % 11.5-14.5 Red Cell Distribution Width [facility] ([facility]) mean corpuscular HGB conc 31.9 g/dL 32.0-36.5 Below low margaux l Mean Corpuscular HGB Conc [facility] ([facility]) platelet count, automated 313 10 150-450 Platelet C ount, Automated [facility] ([facility]) neutrophils % 81.9 % 36.0-66.0 Above high normal Neutrophils % A [facility] ([facility]) lymph % 12.0 % 24.0-44.0 Below low normal Lymph % [facility] ( [facility]) mono % 5.4 % 0.0-5.0 Above high normal [place] % [facility] ([facility]) eos % 0.0 % 0.0-3.0 Eos % [facility] ([facility]) baso % 0.4 % 0.0-1.0 Baso % [facility] ([facility]) nucleated red blood cell % 0.0 % 0-0 Nucleated Red Blood Cell % [facility] ([facility]) immature granulocyte % 0.3 % 0-3.0 Immature Gran ulocyte % [facility] ([facility]) neutrophils # 8.8 10 1.5-8.5 Above high normal Neutrophils # A [facility] ([facility]) lymph # 1.3 10 1.5-5.0 Below low normal Lymph # [facility] ( [facility]) mono # 0.6 10 0.0-0.8 [place] # [facility] ([facility]) eos # 0.0 10 0.0-0.5 Eos # [facility] ([facility]) baso # 0.0 10 0.0-0.2 Baso # [facility] ([facility]) ID Date Data Source [id number] 12/10/2020 05:58:00 PM EST [facility] ([facility]) Name Value Range Interpretation Code Description Data Claribel rce(s) Supporting Document(s) lipase 58 U/L 73-393 Below low normal Lipase [facility] ( [facility]) ID Date Data Source [id number] 12/10/2020 05:58:00 PM EST [facility] ([facility]) Name Value Range Interpretation Code Description Data Claribel rce(s) Supporting Document(s) magnesium level 2.3 mg/dL 1.8-2.4 Magnesium Level ATHE NA ([facility]) ID Date Data Source [id number] 12/10/2020 05:58:00 PM EST [facility] ([facility]) Name Value Range Interpretation Code Description Data Claribel rce(s) Supporting Document(s) ALT/SGPT 20 U/L 12-78 ALT/SGPT [facility] ([facility]) AST/SGOT 12 U/L 7-37 AST/SGOT [facility] ([facility]) alkaline phosphatase 108 U/L 45-117 Alkaline Phosph atase [facility] ([facility]) bilirubin,total 0.4 mg/dL 0.2-1.0 Bilirubin,total [facility] ([facility]) bilirubin,direct < 0.1 0.0-0.2 Bilirubin,direct AT [facility] ([facility]) total protein 8.2 gm/dL 6.4-8.2 Total Protein [facility] ( [facility]) albumin 3.7 gm/dL 3.2-5.2 Albumin [facility] ([facility]) albumin/globulin ratio 1.2-2.2 Below low normal Albumin /globulin Ratio [facility] ([facility]) ID Date Data Source [id number] 12/10/2020 05:58:00 PM EST [facility] ([facility]) Name Value Range Interpretation Code Description Data Claribel rce(s) Supporting Document(s) lactic acid sepsis protocol 1.2 mmol/L 0.4-2.0 Lactic A bro Sepsis Protocol [facility] ([facility]) ID Date Data Source [id number] 12/10/2020 05:58:00 PM EST [facility] ([facility]) Name Value Range Interpretation Code Description Data Claribel rce(s) Supporting Document(s) red blood count 5.54 10 4.00-5.40 Above high normal Red Blood Cou nt [facility] ([facility]) white blood count 10.7 10 4.0-10.0 Above high normal White Blood Count [facility] ([facility]) hemoglobin 16.3 g/dL 12.0-15.5 Above high normal Hemoglobin [facility] ([facility]) hematocrit 51.1 % 36.0-47.0 Above high normal Hematocrit [facility] ([facility]) mean corpuscular volume 92.2 fL 80.0-96.0 Mean Corpusc ular Volume [facility] ([facility]) mean corpuscular hemoglobin 29.4 pg 27.0-33.0 Mean Cor puscular Hemoglobin [facility] ([facility]) mean corpuscular HGB conc 31.9 g/dL 32.0-36.5 Below low margaux l Mean Corpuscular HGB Conc [facility] ([facility]) red cell distribution width 13.1 % 11.5-14.5 Red Cell Distribution Width [facility] ([facility]) neutrophils % 81.9 % 36.0-66.0 Above high normal Neutrophils % A [facility] ([facility]) lymph % 12.0 % 24.0-44.0 Below low normal Lymph % [facility] ( [facility]) platelet count, automated 313 10 150-450 Platelet C ount, Automated [facility] ([facility]) mono % 5.4 % 0.0-5.0 Above high normal [place] % [facility] ([facility]) eos % 0.0 % 0.0-3.0 Eos % [facility] ([facility]) baso % 0.4 % 0.0-1.0 Baso % [facility] ([facility]) immature granulocyte % 0.3 % 0-3.0 Immature Gran ulocyte % [facility] ([facility]) nucleated red blood cell % 0.0 % 0-0 Nucleated Red Blood Cell % [facility] ([facility]) lymph # 1.3 10 1.5-5.0 Below low normal Lymph # [facility] ( [facility]) neutrophils # 8.8 10 1.5-8.5 Above high normal Neutrophils # A [facility] ([facility]) mono # 0.6 10 0.0-0.8 [place] # [facility] ([facility]) eos # 0.0 10 0.0-0.5 Eos # [facility] ([facility]) baso # 0.0 10 0.0-0.2 Baso # [facility] ([facility]) ID Date Data Source [id number] 12/10/2020 05:58:00 PM EST [facility] ([facility]) Name Value Range Interpretation Code Description Data Claribel rce(s) Supporting Document(s) lipase 58 U/L 73-393 Below low normal Lipase [facility] ( [facility]) ID Date Data Source [id number] 12/10/2020 05:58:00 PM EST [facility] ([facility]) Name Value Range Interpretation Code Description Data Claribel rce(s) Supporting Document(s) magnesium level 2.3 mg/dL 1.8-2.4 Magnesium Level AT[facility] NA ([facility]) ID Date Data Source [id number] 12/10/2020 05:58:00 PM EST [facility] ([facility]) Name Value Range Interpretation Code Description Data Claribel rce(s) Supporting Document(s) AST/SGOT 12 U/L 7-37 AST/SGOT [facility] ([facility]) alkaline phosphatase 108 U/L 45-117 Alkaline Phosph atase [facility] ([facility]) bilirubin,total 0.4 mg/dL 0.2-1.0 Bilirubin,total [facility] NA ([facility]) ALT/SGPT 20 U/L 12-78 ALT/SGPT [facility] ([facility]) total protein 8.2 gm/dL 6.4-8.2 Total Protein [facility] ( [facility]) albumin 3.7 gm/dL 3.2-5.2 Albumin [facility] ([facility]) bilirubin,direct < 0.1 0.0-0.2 Bilirubin,direct AT [facility] ([facility]) albumin/globulin ratio 1.2-2.2 Below low normal Albumin /globulin Ratio [facility] ([facility]) ID Date Data Source [id number] 12/10/2020 05:58:00 PM EST [facility] ([facility]) Name Value Range Interpretation Code Description Data Claribel rce(s) Supporting Document(s) lactic acid sepsis protocol 1.2 mmol/L 0.4-2.0 Lactic A bro Sepsis Protocol [facility] ([facility]) ID Date Data Source [id number] 12/10/2020 05:58:00 PM EST [facility] ([facility]) Name Value Range Interpretation Code Description Data Claribel rce(s) Supporting Document(s) white blood count 10.7 10 4.0-10.0 Above high normal White Blood Count [facility] ([facility]) hemoglobin 16.3 g/dL 12.0-15.5 Above high normal Hemoglobin [facility] ([facility]) red blood count 5.54 10 4.00-5.40 Above high normal Red Blood Cou nt [facility] ([facility]) hematocrit 51.1 % 36.0-47.0 Above high normal Hematocrit [facility] ([facility]) mean corpuscular hemoglobin 29.4 pg 27.0-33.0 Mean Cor puscular Hemoglobin [facility] ([facility]) mean corpuscular volume 92.2 fL 80.0-96.0 Mean Corpusc ular Volume [facility] ([facility]) mean corpuscular HGB conc 31.9 g/dL 32.0-36.5 Below low margaux l Mean Corpuscular HGB Conc [facility] ([facility]) red cell distribution width 13.1 % 11.5-14.5 Red Cell Distribution Width [facility] ([facility]) platelet count, automated 313 10 150-450 Platelet C ount, Automated [facility] ([facility]) lymph % 12.0 % 24.0-44.0 Below low normal Lymph % [facility] ( [facility]) neutrophils % 81.9 % 36.0-66.0 Above high normal Neutrophils % A THENA ([facility]) mono % 5.4 % 0.0-5.0 Above high normal Trinity % [facility] ([facility]) baso % 0.4 % 0.0-1.0 Baso % [facility] ([facility]) eos % 0.0 % 0.0-3.0 Eos % [facility] ([facility]) nucleated red blood cell % 0.0 % 0-0 Nucleated Red Blood Cell % [facility] ([facility]) immature granulocyte % 0.3 % 0-3.0 Immature Gran ulocyte % [facility] ([facility]) lymph # 1.3 10 1.5-5.0 Below low normal Lymph # [facility] ( [facility]) neutrophils # 8.8 10 1.5-8.5 Above high normal Neutrophils # A THENA ([facility]) mono # 0.6 10 0.0-0.8 Trinity # [facility] ([facility]) baso # 0.0 10 0.0-0.2 Baso # [facility] ([facility]) eos # 0.0 10 0.0-0.5 Eos # [facility] ([facility]) ID Date Data Source [id number] 12/10/2020 05:58:00 PM EST [facility] ([facility]) Name Value Range Interpretation Code Description Data Claribel rce(s) Supporting Document(s) lipase 58 U/L 73-393 Below low normal Lipase [facility] ( [facility]) ID Date Data Source [id number] 12/10/2020 05:58:00 PM EST [facility] ([facility]) Name Value Range Interpretation Code Description Data Claribel rce(s) Supporting Document(s) magnesium level 2.3 mg/dL 1.8-2.4 Magnesium Level ATHE NA ([facility]) ID Date Data Source [id number] 12/10/2020 05:58:00 PM EST [facility] ([facility]) Name Value Range Interpretation Code Description Data Claribel rce(s) Supporting Document(s) AST/SGOT 12 U/L 7-37 AST/SGOT [facility] ([facility]) alkaline phosphatase 108 U/L 45-117 Alkaline Phosph atase [facility] ([facility]) ALT/SGPT 20 U/L 12-78 ALT/SGPT [facility] ([facility]) bilirubin,total 0.4 mg/dL 0.2-1.0 Bilirubin,total ATHE NA ([facility]) bilirubin,direct < 0.1 0.0-0.2 Bilirubin,direct AT [facility] ([facility]) albumin 3.7 gm/dL 3.2-5.2 Albumin [facility] ([facility]) total protein 8.2 gm/dL 6.4-8.2 Total Protein [facility] ( [facility]) albumin/globulin ratio 1.2-2.2 Below low normal Albumin /globulin Ratio [facility] ([facility]) ID Date Data Source [id number] 12/10/2020 05:58:00 PM EST [facility] ([facility]) Name Value Range Interpretation Code Description Data Claribel rce(s) Supporting Document(s) lactic acid sepsis protocol 1.2 mmol/L 0.4-2.0 Lactic A bro Sepsis Protocol [facility] ([facility]) ID Date Data Source [id number] 12/10/2020 05:58:00 PM EST [facility] ([facility]) Name Value Range Interpretation Code Description Data Claribel rce(s) Supporting Document(s) white blood count 10.7 10 4.0-10.0 Above high normal White Blood Count [facility] ([facility]) hemoglobin 16.3 g/dL 12.0-15.5 Above high normal Hemoglobin [facility] ([facility]) red blood count 5.54 10 4.00-5.40 Above high normal Red Blood Cou nt [facility] ([facility]) mean corpuscular volume 92.2 fL 80.0-96.0 Mean Corpusc ular Volume [facility] ([facility]) hematocrit 51.1 % 36.0-47.0 Above high normal Hematocrit [facility] ([facility]) mean corpuscular hemoglobin 29.4 pg 27.0-33.0 Mean Cor puscular Hemoglobin [facility] ([facility]) platelet count, automated 313 10 150-450 Platelet C ount, Automated [facility] ([facility]) mean corpuscular HGB conc 31.9 g/dL 32.0-36.5 Below low margaux l Mean Corpuscular HGB Conc [facility] ([facility]) red cell distribution width 13.1 % 11.5-14.5 Red Cell Distribution Width [facility] ([facility]) lymph % 12.0 % 24.0-44.0 Below low normal Lymph % [facility] ( [facility]) neutrophils % 81.9 % 36.0-66.0 Above high normal Neutrophils % A THENA ([facility]) mono % 5.4 % 0.0-5.0 Above high normal Trinity % [facility] ([facility]) eos % 0.0 % 0.0-3.0 Eos % [facility] ([facility]) baso % 0.4 % 0.0-1.0 Baso % [facility] ([facility]) immature granulocyte % 0.3 % 0-3.0 Immature Gran ulocyte % [facility] ([facility]) neutrophils # 8.8 10 1.5-8.5 Above high normal Neutrophils # A THENA ([facility]) lymph # 1.3 10 1.5-5.0 Below low normal Lymph # [facility] ( [facility]) nucleated red blood cell % 0.0 % 0-0 Nucleated Red Blood Cell % [facility] ([facility]) eos # 0.0 10 0.0-0.5 Eos # [facility] ([facility]) mono # 0.6 10 0.0-0.8 Trinity # [facility] ([facility]) baso # 0.0 10 0.0-0.2 Baso # [facility] ([facility]) ID Date Data Source [id number] 12/10/2020 05:56:00 PM EST [facility] ([facility]) Name Value Range Interpretation Code Description Data Claribel rce(s) Supporting Document(s) bedside glucose 322 mg/dL 70-105 Above high normal Bedside Gluco se [facility] ([facility]) ID Date Data Source [id number] 12/10/2020 05:56:00 PM EST [facility] ([facility]) Name Value Range Interpretation Code Description Data Claribel rce(s) Supporting Document(s) bedside glucose 322 mg/dL 70-105 Above high normal Bedside Gluco se [facility] ([facility]) ID Date Data Source [id number] 12/10/2020 05:56:00 PM EST [facility] ([facility]) Name Value Range Interpretation Code Description Data Claribel rce(s) Supporting Document(s) bedside glucose 322 mg/dL 70-105 Above high normal Bedside Gluco se [facility] ([facility]) ID Date Data Source [id number] 12/10/2020 05:56:00 PM EST [facility] ([facility]) Name Value Range Interpretation Code Description Data Claribel rce(s) Supporting Document(s) bedside glucose 322 mg/dL 70-105 Above high normal Bedside Gluco se [facility] ([facility]) ID Date Data Source [id number] 12/10/2020 05:56:00 PM EST [facility] ([facility]) Name Value Range Interpretation Code Description Data Claribel rce(s) Supporting Document(s) bedside glucose 322 mg/dL 70-105 Above high normal Bedside Gluco se [facility] ([facility]) ID Date Data Source [id number] 12/10/2020 05:56:00 PM EST [facility] ([facility]) Name Value Range Interpretation Code Description Data Claribel rce(s) Supporting Document(s) bedside glucose 322 mg/dL 70-105 Above high normal Bedside Gluco se [facility] ([facility]) ID Date Data Source [id number] 12/10/2020 05:41:00 PM EST [facility] ([facility]) Name Value Range Interpretation Code Description Data Claribel rce(s) Supporting Document(s) Hemoglobin A1c/Hemoglobin.total in Blood 11.1 % Hemoglobin a1C [facility] ([facility]) estimated average glucose 272 mg/dL 60-110 Above high norm al Estimated Average Glucose [facility] ([facility]) ID Date Data Source [id number] 12/10/2020 05:41:00 PM EST [facility] ([facility]) Name Value Range Interpretation Code Description Data Claribel rce(s) Supporting Document(s) Hemoglobin A1c/Hemoglobin.total in Blood 11.1 % Hemoglobin a1C [facility] ([facility]) estimated average glucose 272 mg/dL 60-110 Above high norm al Estimated Average Glucose [facility] ([facility]) ID Date Data Source [id number] 12/10/2020 05:41:00 PM EST [facility] ([facility]) Name Value Range Interpretation Code Description Data Claribel rce(s) Supporting Document(s) Hemoglobin A1c/Hemoglobin.total in Blood 11.1 % Hemoglobin a1C [facility] ([facility]) estimated average glucose 272 mg/dL 60-110 Above high norm al Estimated Average Glucose [facility] ([facility]) ID Date Data Source [id number] 12/10/2020 05:41:00 PM EST [facility] ([facility]) Name Value Range Interpretation Code Description Data Claribel rce(s) Supporting Document(s) Hemoglobin A1c/Hemoglobin.total in Blood 11.1 % Hemoglobin a1C [facility] ([facility]) estimated average glucose 272 mg/dL 60-110 Above high norm al Estimated Average Glucose [facility] ([facility]) ID Date Data Source [id number] 12/10/2020 05:41:00 PM EST [facility] ([facility]) Name Value Range Interpretation Code Description Data Claribel rce(s) Supporting Document(s) estimated average glucose 272 mg/dL 60-110 Above high norm al Estimated Average Glucose [facility]) Hemoglobin A1c/Hemoglobin.total in Blood 11.1 % Hemoglobin a1C [facility] ([facility]) ID Date Data Source [id number] 12/10/2020 05:41:00 PM EST [facility] ([facility]) Name Value Range Interpretation Code Description Data Claribel rce(s) Supporting Document(s) estimated average glucose 272 mg/dL 60-110 Above high norm al Estimated Average Glucose [facility] ([facility]) Hemoglobin A1c/Hemoglobin.total in Blood 11.1 % Hemoglobin a1C [facility] ([facility]) ID Date Data Source [id number] 12/10/2020 05:09:00 PM EST [facility] ([facility]) Name Value Range Interpretation Code Description Data Claribel rce(s) Supporting Document(s) acetone/ketone > 46.00 <2.81 Above high normal Acetone/ketone [facility]) ID Date Data Source [id number] 12/10/2020 05:09:00 PM EST [facility] ([facility]) Name Value Range Interpretation Code Description Data Claribel rce(s) Supporting Document(s) acetone/ketone > 46.00 <2.81 Above high normal Acetone/ketone [facility] ([facility]) ID Date Data Source [id number] 12/10/2020 05:09:00 PM EST [facility] ([facility]) Name Value Range Interpretation Code Description Data Claribel rce(s) Supporting Document(s) acetone/ketone > 46.00 <2.81 Above high normal Acetone/ketone [facility] ([facility]) ID Date Data Source [id number] 12/10/2020 05:09:00 PM EST [facility] ([facility]) Name Value Range Interpretation Code Description Data Claribel rce(s) Supporting Document(s) acetone/ketone > 46.00 <2.81 Above high normal Acetone/ketone [facility] ([facility]) ID Date Data Source [id number] 12/10/2020 05:09:00 PM EST [facility] ([facility]) Name Value Range Interpretation Code Description Data Claribel rce(s) Supporting Document(s) acetone/ketone > 46.00 <2.81 Above high normal Acetone/ketone [facility] ([facility]) ID Date Data Source [id number] 12/10/2020 05:09:00 PM EST [facility] ([facility]) Name Value Range Interpretation Code Description Data Clariebl rce(s) Supporting Document(s) acetone/ketone > 46.00 <2.81 Above high normal Acetone/ketone [facility] ([facility]) ID Date Data Source [id number] 12/10/2020 05:08:00 PM EST [facility] ([facility]) Name Value Range Interpretation Code Description Data Claribel rce(s) Supporting Document(s) ABG pH (arterial) 7.117 units 7.350-7.450 Below low normal ABG pH (Ar terial) [facility] ([facility]) ABG partial pressure O2 125.1 mmHg 75.0-100.0 Above high normal ABG Partial Pressure O2 [facility] ([facility]) ABG partial pressure CO2 16.7 mmHg 35.0-45.0 Below low normal ABG Partial Pressure CO2 [facility] ([facility]) ABG total CO2 5.8 mEq/L 22.0-29.0 Below low normal ABG Total CO2 AT [facility] ([facility]) ABG base excess -2.0-2.0 Below low normal ABG Base Exces s [facility] ([facility]) ABG HCO3 5.3 mEq/L 22.0-26.0 Below low normal Abg Hco3 [facility] ( [facility]) ABG standard HCO3 9.1 mEq/L 22.0-26.0 Below low normal ABG Standard HCO3 [facility] ([facility]) ABG O2 saturation 98.2 % 95.0-99.0 ABG O2 Saturation [facility] ([facility]) ID Date Data Source [id number] 12/10/2020 05:08:00 PM EST [facility] ([facility]) Name Value Range Interpretation Code Description Data Claribel rce(s) Supporting Document(s) ABG pH (arterial) 7.117 units 7.350-7.450 Below low normal ABG pH (Ar terial) [facility] ([facility]) ABG partial pressure CO2 16.7 mmHg 35.0-45.0 Below low normal ABG Partial Pressure CO2 [facility] ([facility]) ABG total CO2 5.8 mEq/L 22.0-29.0 Below low normal ABG Total CO2 AT [facility] ([facility]) ABG partial pressure O2 125.1 mmHg 75.0-100.0 Above high normal ABG Partial Pressure O2 [facility] ([facility]) ABG standard HCO3 9.1 mEq/L 22.0-26.0 Below low normal ABG Standard HCO3 [facility] ([facility]) ABG HCO3 5.3 mEq/L 22.0-26.0 Below low normal Abg Hco3 [facility] ( [facility]) ABG base excess -2.0-2.0 Below low normal ABG Base Exces s [facility] ([facility]) ABG O2 saturation 98.2 % 95.0-99.0 ABG O2 Saturation [facility] ([facility]) ID Date Data Source [id number] 12/10/2020 05:08:00 PM EST [facility] ([facility]) Name Value Range Interpretation Code Description Data Claribel rce(s) Supporting Document(s) ABG pH (arterial) 7.117 units 7.350-7.450 Below low normal ABG pH (Ar terial) [facility] ([facility]) ABG partial pressure CO2 16.7 mmHg 35.0-45.0 Below low normal ABG Partial Pressure CO2 [facility] ([facility]) ABG partial pressure O2 125.1 mmHg 75.0-100.0 Above high normal ABG Partial Pressure O2 [facility] ([facility]) ABG total CO2 5.8 mEq/L 22.0-29.0 Below low normal ABG Total CO2 AT [facility] ([facility]) ABG HCO3 5.3 mEq/L 22.0-26.0 Below low normal Abg Hco3 [facility] ( [facility]) ABG base excess -2.0-2.0 Below low normal ABG Base Exces s [facility] ([facility]) ABG standard HCO3 9.1 mEq/L 22.0-26.0 Below low normal ABG Standard HCO3 [facility] ([facility]) ABG O2 saturation 98.2 % 95.0-99.0 ABG O2 Saturation [facility] ([facility]) ID Date Data Source [id number] 12/10/2020 05:08:00 PM EST [facility] ([facility]) Name Value Range Interpretation Code Description Data Claribel rce(s) Supporting Document(s) ABG partial pressure CO2 16.7 mmHg 35.0-45.0 Below low normal ABG Partial Pressure CO2 [facility] ([facility]) ABG pH (arterial) 7.117 units 7.350-7.450 Below low normal ABG pH (Ar terial) [facility] ([facility]) ABG partial pressure O2 125.1 mmHg 75.0-100.0 Above high normal ABG Partial Pressure O2 [facility] ([facility]) ABG total CO2 5.8 mEq/L 22.0-29.0 Below low normal ABG Total CO2 AT [facility] ([facility]) ABG standard HCO3 9.1 mEq/L 22.0-26.0 Below low normal ABG Standard HCO3 [facility] ([facility]) ABG base excess -2.0-2.0 Below low normal ABG Base Exces s [facility] ([facility]) ABG HCO3 5.3 mEq/L 22.0-26.0 Below low normal Abg Hco3 [facility] ( [facility]) ABG O2 saturation 98.2 % 95.0-99.0 ABG O2 Saturation [facility] ([facility]) ID Date Data Source [id number] 12/10/2020 05:08:00 PM EST [facility] ([facility]) Name Value Range Interpretation Code Description Data Claribel rce(s) Supporting Document(s) ABG partial pressure O2 125.1 mmHg 75.0-100.0 Above high normal ABG Partial Pressure O2 [facility] ([facility]) ABG pH (arterial) 7.117 units 7.350-7.450 Below low normal ABG pH (Ar terial) [facility] ([facility]) ABG partial pressure CO2 16.7 mmHg 35.0-45.0 Below low normal ABG Partial Pressure CO2 [facility] ([facility]) ABG HCO3 5.3 mEq/L 22.0-26.0 Below low normal Abg Hco3 [facility] ( [facility]) ABG total CO2 5.8 mEq/L 22.0-29.0 Below low normal ABG Total CO2 AT [facility] ([facility]) ABG base excess -2.0-2.0 Below low normal ABG Base Exces s [facility] ([facility]) ABG standard HCO3 9.1 mEq/L 22.0-26.0 Below low normal ABG Standard HCO3 [facility] ([facility]) ABG O2 saturation 98.2 % 95.0-99.0 ABG O2 Saturation [facility] ([facility]) ID Date Data Source [id number] 12/10/2020 05:08:00 PM EST [facility] ([facility]) Name Value Range Interpretation Code Description Data Claribel rce(s) Supporting Document(s) ABG partial pressure CO2 16.7 mmHg 35.0-45.0 Below low normal ABG Partial Pressure CO2 [facility] ([facility]) ABG partial pressure O2 125.1 mmHg 75.0-100.0 Above high normal ABG Partial Pressure O2 [facility] ([facility]) ABG pH (arterial) 7.117 units 7.350-7.450 Below low normal ABG pH (Ar terial) [facility] ([facility]) ABG HCO3 5.3 mEq/L 22.0-26.0 Below low normal Abg Hco3 [facility] ( [facility]) ABG total CO2 5.8 mEq/L 22.0-29.0 Below low normal ABG Total CO2 AT [facility] ([facility]) ABG base excess -2.0-2.0 Below low normal ABG Base Exces s [facility] ([facility]) ABG standard HCO3 9.1 mEq/L 22.0-26.0 Below low normal ABG Standard HCO3 [facility] ([facility]) ABG O2 saturation 98.2 % 95.0-99.0 ABG O2 Saturation [facility] ([facility]) ID Date Data Source [id number] 12/10/2020 02:24:00 PM EST [facility] ([facility]) Name Value Range Interpretation Code Description Data Claribel rce(s) Supporting Document(s) istat B-HCG < 5.0 Istat B-HCG [facility] ([facility]) ID Date Data Source [id number] 12/10/2020 02:24:00 PM EST [facility] ([facility]) Name Value Range Interpretation Code Description Data Claribel rce(s) Supporting Document(s) istat B-HCG < 5.0 Istat B-HCG [facility] ([facility]) ID Date Data Source [id number] 12/10/2020 02:24:00 PM EST [facility] ([facility]) Name Value Range Interpretation Code Description Data Claribel rce(s) Supporting Document(s) istat B-HCG < 5.0 Istat B-HCG [facility] ([facility]) ID Date Data Source [id number] 12/10/2020 02:24:00 PM EST [facility] ([facility]) Name Value Range Interpretation Code Description Data Claribel rce(s) Supporting Document(s) istat B-HCG < 5.0 Istat B-HCG [facility] ([facility]) ID Date Data Source [id number] 12/10/2020 02:24:00 PM EST [facility] ([facility]) Name Value Range Interpretation Code Description Data Claribel rce(s) Supporting Document(s) istat B-HCG < 5.0 Istat B-HCG [facility] ([facility]) ID Date Data Source [id number] 12/10/2020 02:24:00 PM EST [facility] ([facility]) Name Value Range Interpretation Code Description Data Claribel rce(s) Supporting Document(s) istat B-HCG < 5.0 Istat B-HCG [facility] ([facility]) ID Date Data Source [id number] 12/10/2020 02:21:00 PM EST [facility] ([facility]) Name Value Range Interpretation Code Description Data Claribel rce(s) Supporting Document(s) istat HCT 46.0 % 38.0-51.0 Istat HCT [facility] ([facility]) istat sodium 136 mEq/L 136-145 Istat Sodium [facility] (No [facility]) istat glucose 290 mg/dL 70-105 Above high normal Istat Glucose A [facility] ([facility]) istat potassium 4.8 mEq/L 3.5-5.1 Istat Potassium ATHE NA ([facility]) istat Ca++ 5.6 mg/dL 4.5-5.3 Above high normal Istat Ca++ [facility] ([facility]) istat CO2 12.0 mm/L 23.0-27.0 Below low normal Istat CO2 [facility] ( [facility]) istat chloride 109 mEq/L 98-109 Istat Chloride [facility] ([facility]) istat BUN 25 mg/dL 8-26 Istat BUN [facility] ([facility]) istat creatinine 1.1 mg/dL 0.6-1.3 Istat Creatinine AT [facility] ([facility]) ID Date Data Source [id number] 12/10/2020 02:21:00 PM EST [facility] ([facility]) Name Value Range Interpretation Code Description Data Claribel rce(s) Supporting Document(s) istat HCT 46.0 % 38.0-51.0 Istat HCT [facility] ([facility]) istat glucose 290 mg/dL 70-105 Above high normal Istat Glucose A [facility] ([facility]) istat sodium 136 mEq/L 136-145 Istat Sodium [facility] (No [facility]) istat chloride 109 mEq/L 98-109 Istat Chloride [facility] ([facility]) istat potassium 4.8 mEq/L 3.5-5.1 Istat Potassium ATHE NA ([facility]) istat Ca++ 5.6 mg/dL 4.5-5.3 Above high normal Istat Ca++ [facility] ([facility]) istat BUN 25 mg/dL 8-26 Istat BUN [facility] ([facility]) istat CO2 12.0 mm/L 23.0-27.0 Below low normal Istat CO2 [facility] ( [facility]) istat creatinine 1.1 mg/dL 0.6-1.3 Istat Creatinine AT [facility] ([facility]) ID Date Data Source [id number] 12/10/2020 02:21:00 PM EST [facility] ([facility]) Name Value Range Interpretation Code Description Data Claribel rce(s) Supporting Document(s) istat HCT 46.0 % 38.0-51.0 Istat HCT [facility] ([facility]) istat glucose 290 mg/dL 70-105 Above high normal [facility] istat sodium 136 mEq/L 136-145 Istat Sodium [facility] ([facility]) istat potassium 4.8 mEq/L 3.5-5.1 Istat Potassium [facility] NA ([facility] [facility]) istat Ca++ 5.6 mg/dL 4.5-5.3 Above high normal Istat Ca++ [facility] ([facility]) istat CO2 12.0 mm/L 23.0-27.0 Below low normal Istat CO2 [facility] ( [facility]) istat chloride 109 mEq/L 98-109 Istat Chloride [facility] ([facility]) istat BUN 25 mg/dL 8-26 Istat BUN [facility] ([facility]) istat creatinine 1.1 mg/dL 0.6-1.3 Istat Creatinine AT [facility] ([facility]) ID Date Data Source [id number] 12/10/2020 02:21:00 PM EST [facility] ([facility]) Name Value Range Interpretation Code Description Data Claribel rce(s) Supporting Document(s) istat HCT 46.0 % 38.0-51.0 Istat HCT [facility] ([facility]) istat glucose 290 mg/dL 70-105 Above high normal [facility] istat Ca++ 5.6 mg/dL 4.5-5.3 Above high normal Istat Ca++ CYND[facility] ([facility]) istat sodium 136 mEq/L 136-145 Istat Sodium [facility] ([facility]) istat potassium 4.8 mEq/L 3.5-5.1 Istat Potassium ATHE NA ([facility]) istat CO2 12.0 mm/L 23.0-27.0 Below low normal Istat CO2 CYND[facility] ( [facility]) istat chloride 109 mEq/L 98-109 Istat Chloride CY[facility] ([facility]) istat creatinine 1.1 mg/dL 0.6-1.3 Istat Creatinine AT [facility] ([facility]) istat BUN 25 mg/dL 8-26 Istat BUN [facility] ([facility]) ID Date Data Source [id number] 12/10/2020 02:21:00 PM EST [facility] ([facility]) Name Value Range Interpretation Code Description Data Claribel rce(s) Supporting Document(s) istat glucose 290 mg/dL 70-105 Above high normal Istat Glucose A [facility] ([facility]) istat HCT 46.0 % 38.0-51.0 Istat HCT [facility] ([facility]) istat sodium 136 mEq/L 136-145 Istat Sodium [facility] ([facility]) istat potassium 4.8 mEq/L 3.5-5.1 Istat Potassium ATHE NA ([facility]) istat CO2 12.0 mm/L 23.0-27.0 Below low normal Istat CO2 CY[facility] ( [facility]) istat chloride 109 mEq/L 98-109 Istat Chloride [facility] ([facility]) istat Ca++ 5.6 mg/dL 4.5-5.3 Above high normal Istat Ca++ [facility] ([facility]) istat BUN 25 mg/dL 8-26 Istat BUN [facility] ([facility]) istat creatinine 1.1 mg/dL 0.6-1.3 Istat Creatinine AT [facility]) ID Date Data Source [id number] 12/10/2020 02:21:00 PM EST [facility] ([facility]) Name Value Range Interpretation Code Description Data Claribel rce(s) Supporting Document(s) istat glucose 290 mg/dL 70-105 Above high normal Istat Glucose A [facility] ([facility]) istat HCT 46.0 % 38.0-51.0 Istat HCT [facility] ([facility]) istat potassium 4.8 mEq/L 3.5-5.1 Istat Potassium ATHE NA ([facility]) istat sodium 136 mEq/L 136-145 Istat Sodium [facility] ([facility]) istat CO2 12.0 mm/L 23.0-27.0 Below low normal Istat CO2 [facility] ( [facility]) istat chloride 109 mEq/L 98-109 Istat Chloride [facility] ([facility]) istat Ca++ 5.6 mg/dL 4.5-5.3 Above high normal Istat Ca++ [facility] ([facility]) istat creatinine 1.1 mg/dL 0.6-1.3 Istat Creatinine AT [facility] ([facility]) istat BUN 25 mg/dL 8-26 Istat BUN [facility] ([facility]) ID Date Data Source [id number] 12/10/2020 01:34:00 PM EST [facility] ([facility]) Name Value Range Interpretation Code Description Data Claribel rce(s) Supporting Document(s) ID Date Data Source [id number] 12/10/2020 01:34:00 PM EST [facility] ([facility]) Name Value Range Interpretation Code Description Data Claribel rce(s) Supporting Document(s) appearance, urine rfx hazy clear Appearance, Ur ine Rfx [facility] ([facility]) pH,urine rfx 5.0 units 5.0-9.0 pH,urine Rfx [facility] ([facility]) color, urine rfx yellow yellow Color, Urine Rfx AT [facility] ([facility]) protein, urine auto rfx 3+ negative Above high normal Prote in, Urine Auto Rfx [facility] ([facility]) specific gravity ur auto rfx 1.002-1.035 Specif ic [place] Ur Auto Rfx [facility] ([facility]) glucose, urine (UA) auto rfx 3+ negative Above high n ormal Glucose, Urine (UA) Auto Rfx [facility] ([facility]) ketone, urine auto rfx 2+ negative Above high normal Ketone , Urine Auto Rfx [facility] ([facility]) urobilinogen, urine auto rfx 0.2 mg/dL 0.0-2.0 Urobili nogen, Urine Auto Rfx [facility] ([facility]) bilirubin, urine auto rfx negative negative Bilirubin, Urine Auto Rfx [facility] ([facility]) leukocyte esterase ur auto rfx 2+ negative Above high normal Leukocyte Esterase Ur Auto Rfx [facility] ([facility]) nitrite, urine auto rfx negative negative Nitrite, Uri ne Auto Rfx [facility] ([facility]) WBC, urine auto rfx 16 /hpf 0-3 Above high normal WBC, Urin e Auto Rfx [facility] ([facility]) blood, urine blood rfx 2+ negative Above high normal Blood, Urine Blood Rfx [facility] ([facility]) bacteria, urine auto rfx 1+ negative Above high normal Bact eria, Urine Auto Rfx [facility] ([facility]) RBC, urine auto rfx 7 /hpf 0-3 Above high normal RBC, Urin e Auto Rfx [facility] ([facility]) mucus, urine rfx small negative Mucus, Urine Rfx AT [facility] ([facility]) squam epithelial cell ur aurfx 1 /hpf 0-6 Squam Epithelial Cell Ur Aurfx [facility] ([facility]) hyaline cast, urine auto rfx 0 /lpf 0-1 Hyaline Cast, Urine Auto Rfx [facility] ([facility]) ID Date Data Source [id number] 12/10/2020 01:34:00 PM EST [facility] ([facility]) Name Value Range Interpretation Code Description Data Claribel rce(s) Supporting Document(s) ID Date Data Source [id number] 12/10/2020 01:34:00 PM EST [facility] ([facility]) Name Value Range Interpretation Code Description Data Claribel rce(s) Supporting Document(s) appearance, urine rfx hazy clear Appearance, Ur ine Rfx [facility] ([facility]) color, urine rfx yellow yellow Color, Urine Rfx AT [facility] ([facility]) specific gravity ur auto rfx 1.002-1.035 Specif ic [place] Ur Auto Rfx [facility] ([facility]) pH,urine rfx 5.0 units 5.0-9.0 pH,urine Rfx [facility] protein, urine auto rfx 3+ negative Above high normal Prote in, Urine Auto Rfx [facility] ([facility]) glucose, urine (UA) auto rfx 3+ negative Above high n ormal Glucose, Urine (UA) Auto Rfx [facility] ([facility]) ketone, urine auto rfx 2+ negative Above high normal Ketone , Urine Auto Rfx [facility] ([facility]) nitrite, urine auto rfx negative negative Nitrite, Uri ne Auto Rfx [facility] ([facility]) bilirubin, urine auto rfx negative negative Bilirubin, Urine Auto Rfx [facility] ([facility]) urobilinogen, urine auto rfx 0.2 mg/dL 0.0-2.0 Urobili nogen, Urine Auto Rfx [facility] ([facility]) blood, urine blood rfx 2+ negative Above high normal Blood, Urine Blood Rfx [facility] ([facility]) leukocyte esterase ur auto rfx 2+ negative Above high normal Leukocyte Esterase Ur Auto Rfx [facility] ([facility]) WBC, urine auto rfx 16 /hpf 0-3 Above high normal WBC, Urin e Auto Rfx [facility] ([facility]) RBC, urine auto rfx 7 /hpf 0-3 Above high normal RBC, Urin e Auto Rfx [facility] ([facility]) bacteria, urine auto rfx 1+ negative Above high normal Bact eria, Urine Auto Rfx [facility] ([facility]) squam epithelial cell ur aurfx 1 /hpf 0-6 Squam Epithelial Cell Ur Aurfx [facility] ([facility]) mucus, urine rfx small negative Mucus, Urine Rfx AT [facility] ([facility]) hyaline cast, urine auto rfx 0 /lpf 0-1 Hyaline Cast, Urine Auto Rfx [facility] ([facility]) ID Date Data Source [id number] 12/10/2020 01:34:00 PM EST [facility] ([facility]) Name Value Range Interpretation Code Description Data Claribel rce(s) Supporting Document(s) ID Date Data Source [id number] 12/10/2020 01:34:00 PM LE [facility] ([facility]) Name Value Range Interpretation Code Description Data Claribel rce(s) Supporting Document(s) appearance, urine rfx hazy clear Appearance, Ur ine Rfx [facility] ([facility]) color, urine rfx yellow yellow Color, Urine Rfx AT [facility] ([facility]) pH,urine rfx 5.0 units 5.0-9.0 pH,urine Rfx [facility] (No [facility]) glucose, urine (UA) auto rfx 3+ negative Above high n ormal Glucose, Urine (UA) Auto Rfx [facility] ([facility]) specific gravity ur auto rfx 1.002-1.035 Specif ic [place] Ur Auto Rfx [facility] ([facility]) protein, urine auto rfx 3+ negative Above high normal Prote in, Urine Auto Rfx [facility] ([facility]) ketone, urine auto rfx 2+ negative Above high normal Ketone , Urine Auto Rfx [facility] ([facility]) urobilinogen, urine auto rfx 0.2 mg/dL 0.0-2.0 Urobili nogen, Urine Auto Rfx [facility] ([facility]) bilirubin, urine auto rfx negative negative Bilirubin, Urine Auto Rfx [facility] ([facility]) nitrite, urine auto rfx negative negative Nitrite, Uri ne Auto Rfx [facility] ([facility]) leukocyte esterase ur auto rfx 2+ negative Above high normal Leukocyte Esterase Ur Auto Rfx [facility] ([facility]) blood, urine blood rfx 2+ negative Above high normal Blood, Urine Blood Rfx [facility] ([facility]) RBC, urine auto rfx 7 /hpf 0-3 Above high normal RBC, Urin e Auto Rfx [facility] ([facility]) WBC, urine auto rfx 16 /hpf 0-3 Above high normal WBC, Urin e Auto Rfx [facility] ([facility]) bacteria, urine auto rfx 1+ negative Above high normal Bact eria, Urine Auto Rfx [facility] ([facility]) squam epithelial cell ur aurfx 1 /hpf 0-6 Squam Epithelial Cell Ur Aurfx [facility] ([facility]) mucus, urine rfx small negative Mucus, Urine Rfx AT [facility] ([facility]) hyaline cast, urine auto rfx 0 /lpf 0-1 Hyaline Cast, Urine Auto Rfx [facility] ([facility]) ID Date Data Source [id number] 12/10/2020 01:34:00 PM EST [facility] ([facility]) Name Value Range Interpretation Code Description Data Claribel rce(s) Supporting Document(s) ID Date Data Source [id number] 12/10/2020 01:34:00 PM EST [facility] ([facility]) Name Value Range Interpretation Code Description Data Claribel rce(s) Supporting Document(s) appearance, urine rfx hazy clear Appearance, Ur ine Rfx [facility] ([facility]) pH,urine rfx 5.0 units 5.0-9.0 pH,urine Rfx [facility] (No [facility]) color, urine rfx yellow yellow Color, Urine Rfx AT [facility] ([facility]) glucose, urine (UA) auto rfx 3+ negative Above high n ormal Glucose, Urine (UA) Auto Rfx [facility] ([facility]) protein, urine auto rfx 3+ negative Above high normal Prote in, Urine Auto Rfx [facility] ([facility]) specific gravity ur auto rfx 1.002-1.035 Specif ic [place] Ur Auto Rfx [facility] ([facility]) urobilinogen, urine auto rfx 0.2 mg/dL 0.0-2.0 Urobili nogen, Urine Auto Rfx [facility] ([facility]) ketone, urine auto rfx 2+ negative Above high normal Ketone , Urine Auto Rfx [facility] ([facility]) nitrite, urine auto rfx negative negative Nitrite, Uri ne Auto Rfx [facility] ([facility]) bilirubin, urine auto rfx negative negative Bilirubin, Urine Auto Rfx [facility] ([facility]) leukocyte esterase ur auto rfx 2+ negative Above high normal Leukocyte Esterase Ur Auto Rfx [facility] ([facility]) RBC, urine auto rfx 7 /hpf 0-3 Above high normal RBC, Urin e Auto Rfx [facility] ([facility]) WBC, urine auto rfx 16 /hpf 0-3 Above high normal WBC, Urin e Auto Rfx [facility] ([facility]) blood, urine blood rfx 2+ negative Above high normal Blood, Urine Blood Rfx [facility] ([facility]) bacteria, urine auto rfx 1+ negative Above high normal Bact eria, Urine Auto Rfx [facility] ([facility]) squam epithelial cell ur aurfx 1 /hpf 0-6 Squam Epithelial Cell Ur Aurfx [facility] ([facility]) hyaline cast, urine auto rfx 0 /lpf 0-1 Hyaline Cast, Urine Auto Rfx [facility] ([facility]) mucus, urine rfx small negative Mucus, Urine Rfx AT [facility] ([facility]) ID Date Data Source [id number] 12/10/2020 01:34:00 PM EST [facility] ([facility]) Name Value Range Interpretation Code Description Data Claribel rce(s) Supporting Document(s) ID Date Data Source [id number] 12/10/2020 01:34:00 PM EST [facility] ([facility]) Name Value Range Interpretation Code Description Data Claribel rce(s) Supporting Document(s) appearance, urine rfx hazy clear Appearance, Ur ine Rfx [facility] ([facility]) color, urine rfx yellow yellow Color, Urine Rfx AT [facility] ([facility]) specific gravity ur auto rfx 1.002-1.035 Specif ic [place] Ur Auto Rfx [facility] ([facility]) pH,urine rfx 5.0 units 5.0-9.0 pH,urine Rfx [facility] protein, urine auto rfx 3+ negative Above high normal Prote in, Urine Auto Rfx [facility] ([facility]) glucose, urine (UA) auto rfx 3+ negative Above high n ormal Glucose, Urine (UA) Auto Rfx [facility] ([facility]) urobilinogen, urine auto rfx 0.2 mg/dL 0.0-2.0 Urobili nogen, Urine Auto Rfx [facility] ([facility]) ketone, urine auto rfx 2+ negative Above high normal Ketone , Urine Auto Rfx [facility] ([facility]) leukocyte esterase ur auto rfx 2+ negative Above high normal Leukocyte Esterase Ur Auto Rfx [facility] ([facility]) bilirubin, urine auto rfx negative negative Bilirubin, Urine Auto Rfx [facility] ([facility]) nitrite, urine auto rfx negative negative Nitrite, Uri ne Auto Rfx [facility] ([facility]) WBC, urine auto rfx 16 /hpf 0-3 Above high normal WBC, Urin e Auto Rfx [facility] ([facility]) blood, urine blood rfx 2+ negative Above high normal Blood, Urine Blood Rfx [facility] ([facility]) bacteria, urine auto rfx 1+ negative Above high normal Bact eria, Urine Auto Rfx [facility] ([facility]) RBC, urine auto rfx 7 /hpf 0-3 Above high normal RBC, Urin e Auto Rfx [facility] ([facility]) squam epithelial cell ur aurfx 1 /hpf 0-6 Squam Epithelial Cell Ur Aurfx [facility] ([facility]) mucus, urine rfx small negative Mucus, Urine Rfx AT [facility] ([facility]) hyaline cast, urine auto rfx 0 /lpf 0-1 Hyaline Cast, Urine Auto Rfx [facility] ([facility]) ID Date Data Source [id number] 12/10/2020 01:34:00 PM EST [facility] ([facility]) Name Value Range Interpretation Code Description Data Claribel rce(s) Supporting Document(s) ID Date Data Source [id number] 12/10/2020 01:34:00 PM EST [facility] ([facility]) Name Value Range Interpretation Code Description Data Claribel rce(s) Supporting Document(s) appearance, urine rfx hazy clear Appearance, Ur ine Rfx [facility] ([facility]) color, urine rfx yellow yellow Color, Urine Rfx AT [facility] ([facility]) protein, urine auto rfx 3+ negative Above high normal Prote in, Urine Auto Rfx [facility] ([facility]) specific gravity ur auto rfx 1.002-1.035 Specif ic [place] Ur Auto Rfx [facility] ([facility]) pH,urine rfx 5.0 units 5.0-9.0 pH,urine Rfx [facility] (No [facility]) glucose, urine (UA) auto rfx 3+ negative Above high n ormal Glucose, Urine (UA) Auto Rfx [facility] ([facility]) ketone, urine auto rfx 2+ negative Above high normal Ketone , Urine Auto Rfx [facility] ([facility]) nitrite, urine auto rfx negative negative Nitrite, Uri ne Auto Rfx [facility] ([facility]) urobilinogen, urine auto rfx 0.2 mg/dL 0.0-2.0 Urobili nogen, Urine Auto Rfx [facility] ([facility]) bilirubin, urine auto rfx negative negative Bilirubin, Urine Auto Rfx [facility] ([facility]) leukocyte esterase ur auto rfx 2+ negative Above high normal Leukocyte Esterase Ur Auto Rfx [facility] ([facility]) blood, urine blood rfx 2+ negative Above high normal Blood, Urine Blood Rfx [facility] ([facility]) WBC, urine auto rfx 16 /hpf 0-3 Above high normal WBC, Urin e Auto Rfx [facility] ([facility]) RBC, urine auto rfx 7 /hpf 0-3 Above high normal RBC, Urin e Auto Rfx [facility] ([facility]) bacteria, urine auto rfx 1+ negative Above high normal Bact eria, Urine Auto Rfx [facility] ([facility]) hyaline cast, urine auto rfx 0 /lpf 0-1 Hyaline Cast, Urine Auto Rfx [facility] ([facility]) mucus, urine rfx small negative Mucus, Urine Rfx AT [facility] ([facility]) squam epithelial cell ur aurfx 1 /hpf 0-6 Squam Epithelial Cell Ur Aurfx [facility] ([facility]) ID Date Data Source [id number] 12/10/2020 01:04:00 PM EST [facility] ([facility]) Name Value Range Interpretation Code Description Data Claribel rce(s) Supporting Document(s) bedside glucose 256 mg/dL 70-105 Above high normal Bedside Gluco se [facility] ([facility]) ID Date Data Source [id number] 12/10/2020 01:04:00 PM EST [facility] ([facility]) Name Value Range Interpretation Code Description Data Claribel rce(s) Supporting Document(s) bedside glucose 256 mg/dL 70-105 Above high normal Bedside Gluco se [facility] ([facility]) ID Date Data Source [id number] 12/10/2020 01:04:00 PM EST [facility] ([facility]) Name Value Range Interpretation Code Description Data Claribel rce(s) Supporting Document(s) bedside glucose 256 mg/dL 70-105 Above high normal Bedside Gluco se [facility] ([facility]) ID Date Data Source [id number] 12/10/2020 01:04:00 PM EST [facility] ([facility]) Name Value Range Interpretation Code Description Data Claribel rce(s) Supporting Document(s) bedside glucose 256 mg/dL 70-105 Above high normal Bedside Gluco se [facility] ([facility]) ID Date Data Source [id number] 12/10/2020 01:04:00 PM EST [facility] ([facility]) Name Value Range Interpretation Code Description Data Claribel rce(s) Supporting Document(s) bedside glucose 256 mg/dL 70-105 Above high normal Bedside Gluco [facility] ([facility]) ID Date Data Source [id number] 10/01/2020 12:00:00 AM EST [facility] Name Value Range Interpretation Code Description Data Claribel rce(s) Supporting Document(s) SARS coronavirus 2 RNA [Presence] in Res piratory specimen by ANDREE with probe detection [facility] This lab was ordered by [facility] and reported by [facility]. Procedure Social History Code Duration Value Status Description Data Source(s ) Smoking 03/26/2021 12:00:00 AM EDT Patient has never smoked co mpleted Patient has never smoked [facility] ([facility], [facility]) Alcohol intake 02/20/2021 12:00:00 AM EDT Current non-d clyde of alcohol (finding) completed Current non-drinker of alcohol (finding) [facility] Tobacco use and exposure 02/20/2021 12:00:00 AM EDT Never used co mpleted Never used [facility] Smoking 02/20/2021 12:00:00 AM EDT Never smoker completed Never s [facility] Vital Signs ID Date Data Source [id number] Name Value Range Interpretation Code Description Data Source(s) Diastolic blood pressure 73 mm[Hg] 73 mm[Hg] [facility] ([facility]) Body height 64 [in_i] 64 [in_i] [facility] ([facility]) Body mass index (BMI) [Ratio] 26 kg/m2 26 kg/ m2 [facility] ([facility]) Systolic blood pressure 105 mm[Hg] 105 mm[Hg] [facility] Body weight 2420 [oz_av] 2420 [oz_av] [facility] ([facility]) Body height 64 [in_i] 64 [in_i] [facility] ([facility]) Body height 64 [in_i] 64 [in_i] [facility] ([facility]) Diastolic blood pressure 81 mm[Hg] 81 mm[Hg] [facility] ([facility]) Body height 64 [in_i] 64 [in_i] [facility] ([facility]) Body mass index (BMI) [Ratio] 25.2 kg/m2 25.2 k g/m2 [facility] ([facility]) Systolic blood pressure 112 mm[Hg] 112 mm[Hg] A [facility] ([facility]) Body weight 2352 [oz_av] 2352 [oz_av] [facility] ([facility]) Diastolic blood pressure 81 mm[Hg] 81 mm[Hg] [facility] ([facility]) Body height 64 [in_i] 64 [in_i] [facility] ([facility]) Body mass index (BMI) [Ratio] 25.2 kg/m2 25.2 k g/m2 [facility] ([facility]) Systolic blood pressure 112 mm[Hg] 112 mm[Hg] A [facility] ([facility]) Body weight 2352 [oz_av] 2352 [oz_av] [facility] ([facility]) Diastolic blood pressure 81 mm[Hg] 81 mm[Hg] [facility] ([facility]) Body height 64 [in_i] 64 [in_i] [facility] ([facility]) Body mass index (BMI) [Ratio] 25.2 kg/m2 25.2 k g/m2 [facility] ([facility]) Systolic blood pressure 112 mm[Hg] 112 mm[Hg] A [facility] ([facility]) Body weight 2352 [oz_av] 2352 [oz_av] CYNDI ([facility]) Systolic blood pressure 138 mm[Hg] 138 mm[Hg] M [facility]ENT ([facility], [facility]) Respiratory rate 18 /min 18 /min [facility] ( [facility], [facility]) Body temperature 98.2 [degF] 98.2 [degF] [facility] ([facility]) Body weight 146.00 [lb_av] 146.00 [lb_av] MEDEN T ([facility], [facility]) Body height 64 [in_i] 64 [in_i] MEDENT ([facility], [facility]) 5'4" Body mass index (BMI) [Ratio] 25.1 kg/m2 25.1 k g/m2 MEDENT ([facility], [facility]) Diastolic blood pressure 91 mm[Hg] 91 mm[Hg] MEDENT ([facility], [facility]) Heart rate 103 /min 103 /min MEDENT ([facility], [facility]) Oxygen saturation in Arterial blood by Pulse oximetry 97 % 97 % MEDENT ([facility], [facility]) Diastolic blood pressure 92 mm[Hg] 92 mm[Hg] CYNDI ([facility]) Body mass index (BMI) [Ratio] 26.1 kg/m2 26.1 k g/m2 CYNDI ([facility]) Body height 64 [in_i] 64 [in_i] CYNDI ([facility]) Systolic blood pressure 134 mm[Hg] 134 mm[Hg] A THENA ([facility]) Body weight 2432 [oz_av] 2432 [oz_av] CYNDI ([facility]) Body weight 2432 [oz_av] 2432 [oz_av] CYNDI ([facility]) Diastolic blood pressure 92 mm[Hg] 92 mm[Hg] CYNDI ([facility]) Body height 64 [in_i] 64 [in_i] CYNDI ([facility]) Body mass index (BMI) [Ratio] 26.1 kg/m2 26.1 k g/m2 CYNDI ([facility]) Systolic blood pressure 134 mm[Hg] 134 mm[Hg] [facility] Diastolic blood pressure 92 mm[Hg] 92 mm[Hg] CYNDI ([facility]) Body height 64 [in_i] 64 [in_i] CYNDI ([facility]) Body mass index (BMI) [Ratio] 26.1 kg/m2 26.1 k g/m2 CYNDI ([facility]) Systolic blood pressure 134 mm[Hg] 134 mm[Hg] [facility] Body weight 2432 [oz_av] 2432 [oz_av] CYNDI ([facility]) Diastolic blood pressure 92 mm[Hg] 92 mm[Hg] CYNDI ([facility]) Body height 64 [in_i] 64 [in_i] CYNDI ([facility]) Body mass index (BMI) [Ratio] 26.1 kg/m2 26.1 k g/m2 CYNDI ([facility]) Systolic blood pressure 134 mm[Hg] 134 mm[Hg] [facility] Body weight 2432 [oz_av] 2432 [oz_av] CYNDI ([facility]) Diastolic blood pressure 92 mm[Hg] 92 mm[Hg] CYNDI ([facility]) Body height 64 [in_i] 64 [in_i] CYNDI ([facility]) Body mass index (BMI) [Ratio] 26.1 kg/m2 26.1 k g/m2 CYNDI ([facility]) Systolic blood pressure 134 mm[Hg] 134 mm[Hg] A THENA ([facility]) Body weight 2432 [oz_av] 2432 [oz_av] CYNDI ([facility]) Diastolic blood pressure 92 mm[Hg] 92 mm[Hg] CYNDI ([facility]) Body height 64 [in_i] 64 [in_i] CYNDI ([facility]) Body mass index (BMI) [Ratio] 26.1 kg/m2 26.1 k g/m2 CYNDI ([facility]) Systolic blood pressure 134 mm[Hg] 134 mm[Hg] [facility] Body weight 2432 [oz_av] 2432 [oz_av] CYNDI ([facility]) Diastolic blood pressure 66 mm[Hg] 66 mm[Hg] CYNDI ([facility]) Body height 64 [in_i] 64 [in_i] CYNDI ([facility]) Body mass index (BMI) [Ratio] 25.2 kg/m2 25.2 k g/m2 CYNDI ([facility]) Systolic blood pressure 105 mm[Hg] 105 mm[Hg] [facility] Body weight 2352 [oz_av] 2352 [oz_av] CYNDI ([facility]) Diastolic blood pressure 66 mm[Hg] 66 mm[Hg] CYNDI ([facility]) Body height 64 [in_i] 64 [in_i] CYNDI ([facility]) Body mass index (BMI) [Ratio] 25.2 kg/m2 25.2 k g/m2 CYNDI ([facility]) Systolic blood pressure 105 mm[Hg] 105 mm[Hg] [facility] Body weight 2352 [oz_av] 2352 [oz_av] CYNDI ([facility]) Diastolic blood pressure 66 mm[Hg] 66 mm[Hg] CYNDI ([facility]) Body height 64 [in_i] 64 [in_i] CYNDI ([facility]) Body mass index (BMI) [Ratio] 25.2 kg/m2 25.2 k g/m2 CYNDI ([facility]) Systolic blood pressure 105 mm[Hg] 105 mm[Hg] A THENA ([facility]) Body weight 2352 [oz_av] 2352 [oz_av] CYNDI ([facility]) Diastolic blood pressure 66 mm[Hg] 66 mm[Hg] CYNDI ([facility]) Body height 64 [in_i] 64 [in_i] CYNDI ([facility]) Body mass index (BMI) [Ratio] 25.2 kg/m2 25.2 k g/m2 CYNDI ([facility]) Systolic blood pressure 105 mm[Hg] 105 mm[Hg] [facility] Body weight 2352 [oz_av] 2352 [oz_av] CYNDI ([facility]) Diastolic blood pressure 66 mm[Hg] 66 mm[Hg] CYNDI ([facility]) Body height 64 [in_i] 64 [in_i] CYNDI ([facility]) Body mass index (BMI) [Ratio] 25.2 kg/m2 25.2 k g/m2 CYNDI ([facility]) Systolic blood pressure 105 mm[Hg] 105 mm[Hg] A THEN ([facility]) Body weight 2352 [oz_av] 2352 [oz_av] CYNDI ([facility]) Diastolic blood pressure 66 mm[Hg] 66 mm[Hg] CYNDI ([facility]) Body height 64 [in_i] 64 [in_i] CYNDI ([facility]) Body mass index (BMI) [Ratio] 25.2 kg/m2 25.2 k g/m2 CYNDI ([facility]) Systolic blood pressure 105 mm[Hg] 105 mm[Hg] A THENA ([facility]) Body weight 2352 [oz_av] 2352 [oz_av] CYNDI ([facility]) Body weight 2352 [oz_av] 2352 [oz_av] CYNDI ([facility]) Diastolic blood pressure 66 mm[Hg] 66 mm[Hg] CYNDI ([facility]) Body height 64 [in_i] 64 [in_i] CYNDI ([facility]) Body mass index (BMI) [Ratio] 25.2 kg/m2 25.2 k g/m2 CYNDI ([facility]) Systolic blood pressure 105 mm[Hg] 105 mm[Hg] A THENA ([facility]) Patient Treatment Plan of Care Planned Activity Planned Date Details Description Data Source (s) OneTouch Ultra In Vitro Strip 05/28/2021 12:00:00 AM [facility] Tresiba FlexTouch 100 UNIT/ML Subcutaneo us Solution Pen-injector (insulin degludec) [facility] 3 MG/DOSE Nasal Powder (Glucagon) 05/28/2021 12 :00:00 AM [facility] Insulin Pen Needle 31G X 6 MM 02/20/2021 12:00:00 AM [facility] Insulin, Aspart, Human 100 UNT/ML Injectable Solution 02/05/2021 12:00:00 AM [facility] ospital OneTouch Ultra In Vitro Strip 11/03/2020 12:00:00 AM [facility] Insulin Syringe 31G X 5/16" 1 ML 09/19/2020 12:00:00 AM [facility] Adhesive Remover Wipes XL 07/02/2020 12:00:00 AM [facility] Dexcom G6 Cloth Beamer Device 07/02/2020 12:00:00 AM [facility] Dexcom G6 Sensor 07/02/2020 12:00:00 AM [facility] Dexcom G6 Transmitter 07/02/2020 12:00:00 AM [facility] Tegaderm Film 4"x4-3/4" 07/02/2020 12:00:00 AM [facility] Insulin Degludec 100 UNIT/ML Subcutaneou s Solution Pen-injector (Tresiba FlexTouch) 04/01/2020 12:00:00 AM [facility] Ergocalciferol 02983 UNT Oral Capsule 11/23/2019 12:00:00 AM [facility] Glucagon 3 MG/DOSE Nasal Powder (BAQSIMI ONE PACK) 10/29/2019 12 :00:00 AM [facility] Glucagon 1 MG Injection 10/11/2018 12:00:00 AM [facility] Unifine Pentips 31 gauge x 1/4" needle U SE DIRECTED WITH TRESIBA AND NOVOLOG PENS UP TO 6 TIMES DAILY CYNDI ([facility]) Prednisone 20 MG Oral Tablet CYNDI ([facility]) Phosphorous Supplement 280 mg-160 mg-250 mg oral powder packet MIX 1 PACKET AND DRINK THREE TIMES DAILY CYNDI ( [facility]) OneTouch Ultra Test strips USE INSTRUCTED 6 TIMES DAILY TO CH SUZANNA SUGARS CYNDI ([facility]) OneTouch Ultra Blue Test Strip USE TO CHECK BLOOD GLUCOSE 6 TIMES D CYNDI ([facility]) Insulin, Aspart, Human 100 UNT/ML Injectable Solution [NovoLog] CYNDI ([facility]) Lisinopril 5 MG Oral Tablet CYNDI ([facility]) Lisinopril 10 MG Oral Tablet CYNDI ([facility]) insulin syringe U-100 with needle 1 mL 31 gauge x 5/16" CYNDI ([facility]) Ibuprofen 600 MG Oral Tablet CYNDI ([facility]) Ergocalciferol 60579 UNT Oral Capsule CYNDI ([facility]) Dexamethasone 1 MG/ML Ophthalmic Solution CYNDI ([facility]) Ciprofloxacin 3 MG/ML Ophthalmic Solution CYNDI ([facility]) Cholecalciferol 2000 UNT Oral Tablet CYNDI ([facility]) Cholecalciferol 02409 UNT Oral Capsule CYNDI ([facility]) Baqsimi 3 mg/actuation nasal spray SPRAY 3MG IN ONE NOSTRIL TO TREAT SEVERE HYPOGLYCEMIA CYNDI ([facility]) atorvastatin 40 MG Oral Tablet CYNDI ([facility]) atorvastatin 20 MG Oral Tablet CYNDI ([facility]) Cholecalciferol 5000 UNT Oral Capsule [facility] Prednisone 20 MG Oral Tablet CYNDI ([facility]) Phosphorous Supplement 280 mg-160 mg-250 mg oral powder packet MIX 1 PACKET AND DRINK THREE TIMES DAILY CYNDI ( [facility]) Insulin, Aspart, Human 100 UNT/ML Injectable Solution [NovoLog] CYNDI ([facility]) Lisinopril 5 MG Oral Tablet CYNDI ([facility]) Lisinopril 10 MG Oral Tablet CYNDI ([facility]) Ibuprofen 600 MG Oral Tablet CYNDI ([facility]) Ergocalciferol 26772 UNT Oral Capsule CYNDI ([facility]) Dexamethasone 1 MG/ML Ophthalmic Solution CYNDI ([facility]) Ciprofloxacin 3 MG/ML Ophthalmic Solution YCNDI ([facility]) Cholecalciferol 2000 UNT Oral Tablet CYNDI ([facility]) Cholecalciferol 25281 UNT Oral Capsule CYNDI ([facility]) Baqsimi 3 mg/actuation nasal spray SPRAY 3MG IN ONE NOSTRIL TO TREAT SEVERE HYPOGLYCEMIA CYNDI ([facility]) atorvastatin 40 MG Oral Tablet CYNDI ([facility]) atorvastatin 20 MG Oral Tablet CYNDI ([facility]) Prednisone 20 MG Oral Tablet CYNDI ([facility]) Phosphorous Supplement 280 mg-160 mg-250 mg oral powder packet MIX 1 PACKET AND DRINK THREE TIMES DAILY CYNDI ( [facility]) Insulin, Aspart, Human 100 UNT/ML Injectable Solution [NovoLog] CYNDI ([facility]) Lisinopril 5 MG Oral Tablet CYNDI ([facility]) Lisinopril 10 MG Oral Tablet CYNDI ([facility]) Ibuprofen 600 MG Oral Tablet CYNDI ([facility]) Ergocalciferol 53665 UNT Oral Capsule CYNDI ([facility]) Dexamethasone 1 MG/ML Ophthalmic Solution CYNDI ([facility]) Ciprofloxacin 3 MG/ML Ophthalmic Solution CYNDI ([facility]) Cholecalciferol 2000 UNT Oral Tablet CYNDI ([facility]) Cholecalciferol 26468 UNT Oral Capsule CYNDI ([facility]) Baqsimi 3 mg/actuation nasal spray SPRAY 3MG IN ONE NOSTRIL TO TREAT SEVERE HYPOGLYCEMIA CYNDI ([facility]) atorvastatin 40 MG Oral Tablet CYNDI ([facility]) atorvastatin 20 MG Oral Tablet CYNDI ([facility]) Prednisone 20 MG Oral Tablet CYNDI ([facility]) Phosphorous Supplement 280 mg-160 mg-250 mg oral powder packet MIX 1 PACKET AND DRINK THREE TIMES DAILY CYNDI ( [facility]) Lisinopril 5 MG Oral Tablet CYNDI ([facility]) Ergocalciferol 96787 UNT Oral Capsule CYNDI ([facility]) Cholecalciferol 2000 UNT Oral Tablet CYNDI ([facility]) Baqsimi 3 mg/actuation nasal spray SPRAY 3MG IN ONE NOSTRIL TO TREAT SEVERE HYPOGLYCEMIA CYNDI ([facility]) atorvastatin 20 MG Oral Tablet CYNDI ([facility]) Lisinopril 5 MG Oral Tablet CYNDI ([facility]) Ergocalciferol 23626 UNT Oral Capsule CYNDI ([facility]) Cholecalciferol 2000 UNT Oral Tablet CYNDI ([facility]) Baqsimi 3 mg/actuation nasal spray SPRAY 3MG IN ONE NOSTRIL TO TREAT SEVERE HYPOGLYCEMIA CYNDI ([facility]) atorvastatin 20 MG Oral Tablet CYNDI ([facility]) Prednisone 20 MG Oral Tablet CYNDI ([facility]) Phosphorous Supplement 280 mg-160 mg-250 mg oral powder packet MIX 1 PACKET AND DRINK THREE TIMES DAILY CYNDI ( [facility]) Lisinopril 5 MG Oral Tablet CYNDI ([facility]) Ergocalciferol 98512 UNT Oral Capsule CYNDI ([facility]) Cholecalciferol 2000 UNT Oral Tablet CYNDI ([facility]) Baqsimi 3 mg/actuation nasal spray SPRAY 3MG IN ONE NOSTRIL TO TREAT SEVERE HYPOGLYCEMIA CYNDI ([facility]) atorvastatin 20 MG Oral Tablet CYNDI ([facility]) Prednisone 20 MG Oral Tablet CYNDI ([facility]) Phosphorous Supplement 280 mg-160 mg-250 mg oral powder packet MIX 1 PACKET AND DRINK THREE TIMES DAILY CYNDI ( [facility])
[2021-10-19] MEDS ORDERED: NS 1,000 ML IV SCH (19:15)
--- NOTE | 2021-10-19 20:44 | HPEPDOC ---
General Date of Admission Oct 19, 2021 at 18:38 Date of Service: Oct 19, 2021 Chief Complaint The patient is a 35-year-old female admitted with a reason for visit of Preseptal Cellulitis Of Left And Right Eye. Source: Patient History of Present Illness Carolina Paez is a 35-year-old female with significant history of type 1 diabetes complicated by DKA, and tracheal stenosis status post trach tube who presents with complaints of bilateral eye swelling . Of note, patient was seen October 18 in ED for scalp lesion. Patient reports that she had noticed a bump on her head and endorsed scalp swelling on . She denies wound or trauma to the area. She denies any popping type activity or discharge of the lesion. 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 She denies rubbing her eyes or eye trauma. In ED, she reports she was given a shampoo, PO antibiotic to take when she came in Tuesday regarding the scalp and given a prescription for antibiotics. Unfortunately her pharmacy was closed Tuesday and she was unable to get the medications. Today. she reports worsening swelling from the lesion spreading down from the top of her head to her eyes and thus she came into the ED. patient endorses difficulty opening her eyelids due to the swelling and she endorses watering eyes and mild crusting of the eyes. Patient was given steroids, Benadryl and antibiotics and reports some relief however still difficulty opening both eyes completely and she does endorse headache. Pt also endorses some clear rhinitis and sore throat due to postnasal drip, however denies productive cough, sob, palpitations, chest pain,v/d, abdominal pain, weakness, sensory changes or syncope. Patient denies visual changes however she is limited given challenge wearing glasses as she feels swelling from the upper part of her eyelids around the cyber face to her head. Upon inspection would only see minor swelling around the lesion on her scalp and bilateral eyes however patient endorses the sensation all over the top of her head. Patient denies any numbness tingling. Patient is known to have challenge with venous access and she was a hard stick. Midline was able to be obtained and imaging completed. Orbital CT completed and showed preseptal bilateral cellulitis. Chest x-ray nonacute. Patient normotensive, mildly tachycardic and not tachypneic. Lab work showed no leukocytosis or lactic acidosis. Patient did have hyperglycemia however anion gap 9. Patient will be admitted for further evaluation management of presenting concerns. Home Medications Scheduled Beclomethasone Dipropionate (Qvar Redihaler) 80 Mcg/Act Hfa.aeroba, 2 PUFFS INH DAILY, (Reported) Insulin Degludec (Tresiba Flextouch U-100) 100 Unit/1 Ml Insuln.pen, 25 UNIT SC BID, (Reported) Insulin Human Lispro (Novolog) 100 U/Ml Inj, 1 DOSE SC ACHS, (Reported) PER SLIDING SCALE Allergies Coded Allergies: TREES (Verified Allergy, Unknown, 12/10/20) mold (Verified Allergy, Unknown, 12/10/20) Past Medical History Medical History DM1 complicated by DKA , Tracheal stenosis s/p tracheostomy tube placement, History of non-compliance, migraines, esophagitis, GERD, chlamydia, MRSA, insomnia Surgical History LEEP procedure, colonoscopy, tracheostomy, history of central line placed Family History Significant Family History: Cancer, Hypertension Mother: from cancer, father: Hypertension, hyperlipidemia and COPD Social History * Smoker: former Smoker Alcohol: Denies Drugs: denies Recent Travel/Sick Contacts: Denies: Recent travel, Recent sick contacts Psychosocial History: No pertinent psych hx A-FIB/CHADSVASC A-FIB History Current/History of A-Fib/PAF?: No Current PO Anticoag Therapy: No Review of Systems Constitutional: Denies: Chills, Fever, Night Sweats Eyes: Denies: Pain, Vision change ENT: Denies: Head Aches, Ear Pain, Dysphagia Skin: Reports: Rash, Other (scalp wound, redness, eye redness/swelling); Denies: Lesions, Breakdown Pulmonary: Denies: Dyspnea, Cough Cardiovascular: Denies: Chest Pain, Palpitations, Orthopnea, Paroxysmal Noc. D yspnea, Lt Headedness Gastrointestinal: Reports: Nausea; Denies: Vomiting, Abdominal Pain, Diarrhea Genitourinary: Denies: Dysuria, Frequency, Incontinence, Retention Hematologic: Denies: Bruising, Bleeding Excessively Musculoskeletal: Denies: Neck Pain, Back Pain, Joint Pain, Muscle Pain, Spasms Neurological: Denies: Weakness, Numbness, Change in speech, Confusion Psych: Reports: Mood Normal; Denies: Depression, Memory Issues Physical Examination General Exam: Positive: Alert, Cooperative, No Acute Distress Eye Exam: Positive: PERRLA, EOMI, Other Eye Symptoms (drainage clear, some crusting to eyelashes ); Negative: Conjunctiva & lids normal, Sclera icteric ENT Exam: Positive: Atraumatic, Mucous membr. moist/pink, Pharynx Normal, Other ENT Neck Exam: Positive: Other (+trach); Negative: JVD, thyromegaly Chest Exam: Positive: Clear to auscultation, Normal air movement Heart Exam: Positive: Rate Normal, Regular Rhythm, Normal S1, Normal S2; Negative: Murmurs, Rubs Telemetry: Positive: No significant arrhythmia Abdomen Exam: Positive: Normal bowel sounds, Soft; Negative: Tenderness, Hepatospenomegaly Extremity Exam: Positive: Normal pulses; Negative: Clubbing, Cyanosis, Edema Skin Exam: Positive: Nl turgor and temperature, Lesion, Other skin issue (raised scab on scalp, towards occiput; surrounding redness, redness to eyes and swelling of eyelids); Negative: Breakdown Neuro Exam: Positive: Normal Gait, Normal Speech, Cranial Nerves 3-12 NL, Reflexes 2+ Psych Exam: Positive: Mental status NL, Mood NL, Oriented x 3 Vital Signs Vital Signs Date Time Temp Pulse Resp B/P (MAP) Pulse Ox O2 Delivery O2 Flow Rate FiO2 10/19/21 18:00 96 99 10/19/21 17:45 98.8 20 150/85 (106) 10/19/21 15:55 Room Air Laboratory Data Labs 24H Laboratory Tests 2 10/19/21 06:43: Bedside Glucose (Misc Panel) 321H 10/19/21 06:47: Coronavirus (COVID-19)(PCR) NEGATIVE, Influenza Type A (RT-PCR) NEGATIVE, Influenza Type B (RT-PCR) NEGATIVE, Respiratory Syncytial Virus (PCR) NEGATIVE 10/19/21 07:51: Immature Granulocyte % (Auto) 0.3, Neutrophils (%) (Auto) 85.9H, Lymphocytes (%) (Auto) 8.9L, Monocytes (%) (Auto) 3.4, Eosinophils (%) (Auto) 1.2, Basophils (%) (Auto) 0.3, Neutrophils # (Auto) 5.9, Lymphocytes # (Auto) 0.6L, Monocytes # (Auto) 0.2, Eosinophils # (Auto) 0.1, Basophils # (Auto) 0.0, Nucleated Red Blood Cells % (auto) 0.0 10/19/21 08:19: Estimated Mean Plasma Glucose 272H, Hemoglobin A1c 11.1, Osmolality 308H, Human Chorionic Gonadotropin, Qual NEGATIVE 10/19/21 08:23: Bedside Glucose (Misc Panel) 338H 10/19/21 08:52: Erythrocyte Sedimentation Rate 72H 10/19/21 09:16: Anion Gap 9, Glomerular Filtration Rate > 60.0, Calcium Level 9.1, Magnesium Level 2.2, Total Bilirubin 0.5, Direct Bilirubin 0.1, Aspartate Amino Transf (AST/SGOT) 16, Alanine Aminotransferase (ALT/SGPT) 17, Alkaline Phosphatase 75, C-Reactive Protein, Quantitative 8.38H, Total Protein 6.6, Albumin 2.7L, Albumin/Globulin Ratio 0.7L, Lipase 42L, B-Hydroxybutyrate 43.16H 10/19/21 09:20: Blood Gas Bicarbonate Standard 18.0, Venous Blood pH 7.302L, Venous Blood Partial Pressure CO2 36.1L, Venous Blood Partial Pressure O2 194.7H, Venous Blood Total Carbon Dioxide 18.6L, Venous Blood HCO3 17.4L, Venous Blood Oxygen Saturation 99.1H, Venous Blood Base Excess -8.1L, POC Beta HCG, Quantitative < 5.0 10/19/21 09:22: Bedside Glucose (Misc Panel) 357H 10/19/21 12:31: Bedside Glucose (Misc Panel) 324H 10/19/21 14:49: Bedside Glucose (Misc Panel) 337H 10/19/21 18:27: Bedside Glucose (Misc Panel) 444H CBC/BMP Laboratory Tests 10/19/21 07:51 10/19/21 09:16 Microbiology Microbiology 10/19/21 Blood Culture, Received Pending 10/19/21 Blood Culture, Received Pending Assessment/Plan 1. Preseptal cellulitis: -Monitor for signs symptoms worsening infection -Empiric coverage: Given patient diabetic and inpatient will opt for regimen of Vanco and Levaquin; consider de-escalation accordingly -Symptomatic/supportive care: Warm compresses as needed -Analgesics as needed. -A.m. labs 2. Scalp lesion: Questionable cellulitis to scalp given hair presentation limiting exam, but appears localized despite pt reports overall "top of head" discomfort. She is without pustules or alopecia. Quarter size scaling noted over lesion. -Will trial topical cream as shampoo unavailable in formulary presently. -Monitor and encourage f/u with Derm OP. 3. Hyperglycemia in patient with type I diabetes: -Monitor patient blood glucose every 4 hours as patient is prone to DKA and had received steroids in ED. Anticipate transition to AC at bedtime tomorrow pending her response -Sliding scale insulin -Hydration A.m. lab 4. Tracheostomy: -Trach care per -As needed breathing treatments -Antimucolytic's/antitussives as needed DVT prophylaxis: SCDs and early ambulation CODE STATUS: Full code Disposition planning: Home pending clinical improvement Plan / VTE VTE Prophylaxis Ordered?: Yes LAYLA CASTORENA NP Oct 19, 2021 20:05
[2021-10-19] MEDS: KETOCONAZOLE 2% CREAM TOP SCH (21:00)
[2021-10-19] MEDS ORDERED: LevoFLOXacin IV 750 MG in IV 1 EA IV SCH (21:00)
[2021-10-19] MEDS ORDERED: guaiFENesin ER 600 MG TAB PO PRN (21:20)
[2021-10-19] MEDS ORDERED: FLUTICASONE PROP 0.05% NASAL SPRAY 16 GM (FLONASE) NARES PRN (21:20)
[2021-10-19] MEDS ORDERED: IPRATROPIUM 0.5MG/ALBUTEROL 2.5MG INH SOL UD 3ML (DUONEB) NEB PRN (21:20)
[2021-10-20] MEDS: HumaLOG INSULIN (NovoLOG) PER UNIT SC SCH ×6 (02:00→21:00)
[2021-10-20] MEDS ORDERED: VANCOMYCIN HCL 1,000 MG, VIAL MATE ADAPTER 1 EACH in NS 250 ML IV SCH (07:50)
[2021-10-20] MEDS: ACETAMINOPHEN TAB 650MG DOSE (2X325MG) PO PRN ×2 (08:22→23:09)
[2021-10-20] MEDS: LEVEMIR (INSULIN DETEMIR) 1 UNITS/0.01ML SC SCH ×2 (08:22→21:00)
[2021-10-20 08:24] LABS: BASO % 0.3 % (0.0-1.0); EOS % 0.1 % (0.0-3.0); HEMATOCRIT 31.7 % (36.0-47.0); LYMPH # 1.5 10^3/uL (1.5-5.0); MEAN CORPUSCULAR HEMOGLOBIN 29.1 pg (27.0-33.0); MEAN CORPUSCULAR HGB CONC 32.8 g/dl (32.0-36.5); MEAN CORPUSCULAR VOLUME 88.8 fl (80.0-96.0); MONO # 0.5 10^3/uL (0.0-0.8); MONO % 5.1 % (2.0-8.0); NEUTROPHILS # 6.9 10^3/uL (1.5-8.5); NEUTROPHILS % 76.8 % (36.0-66.0); PLATELET COUNT, AUTOMATED 255 10^3/uL (150-450); RED BLOOD COUNT 3.57 10^6/uL (4.00-5.40)
[2021-10-20 08:33] LABS: HEMOGLOBIN 10.4 g/dl (12.0-15.5)
[2021-10-20] MEDS: KETOCONAZOLE 2% CREAM TOP SCH ×2 (09:00→21:00)
[2021-10-20 09:09] LABS: BLOOD UREA NITROGEN 20 MG/DL (7-18); CARBON DIOXIDE LEVEL 20 MEQ/L (21-32); CHLORIDE LEVEL 112 MEQ/L (98-107); CREATININE FOR GFR 0.92 MG/DL (0.55-1.30); GLOMERULAR FILTRATION RATE > 60.0 (>60); GLUCOSE, FASTING 213 MG/DL (70-100); POTASSIUM SERUM 4.2 MEQ/L (3.5-5.1); SODIUM LEVEL 140 MEQ/L (136-145)
[2021-10-20] MEDS: VANCOMYCIN HCL 750 MG, VIAL MATE ADAPTER 1 EACH in NS 250 ML IV SCH ×2 (09:59→17:15)
[2021-10-20] MEDS ORDERED: VANCOMYCIN HCL 500 MG in D5W MINI-BAG PLUS 100 ML IV ONE (10:00)
[2021-10-20 11:06] LABS: ACETONE/KETONE 12.74 MG/DL (<2.81)
[2021-10-20] MEDS ORDERED: KETOROLAC 30 MG/ML 1ML VIAL IV ONE (13:30)
[2021-10-20 14:37] LABS: GC DNA AMPLIFICATION NEGATIVE (NEGATIVE)
[2021-10-20] MEDS: PIPERACILLIN/TAZOBACTAM SOD 3.375 GM in D5W MINI-BAG PLUS 50 ML IV SCH ×2 (14:54→21:00)
--- NOTE | 2021-10-20 18:12 | REP ---
PROCEDURE NAME: MIDLINE INSERTION W/ SITERITE CLINICAL INFORMATION: antibiotic. COMPARISON: None. PROCEDURE DESCRIPTION: The procedure was performed by KASANDRA Reno, under the direct supervision of Dr. Alicea. The risks and benefits of the procedure were explained to the patient and an informed consent was obtained both verbally and written. Directly prior to the start of the procedure a formal time-out was completed in the procedure room. The right brachial vein was localized using ultrasound guidance. The skin was prepped and draped in sterile fashion. One mL of 1% lidocaine 10 mg/mL was used as a local anesthetic. Using ultrasound guidance the right brachial vein was cannulated, and a 0.018 guidewire was inserted. The needle was removed and a 5 Swiss dilator and peel-away sheath was inserted over the guidewire. A 4.5 Swiss single lumen catheter was cut to a length of 16 cm. The dilator was removed and the catheter was inserted over the guidewire. The peel-away sheath was removed and the catheter was flushed with heparinized saline as per hospital protocol. The catheter was affixed to the skin and a sterile dressing was applied. The patient tolerated the procedure well and there were no immediate complications. CONCLUSION: Mid line insertion into the right brachial vein. <Electronically signed by Ursula Matute > 10/19/21 [id number] <Electronically signed by Fitz Alicea > 10/20/21 [id number]
[2021-10-20 21:45] VITALS: BP 141/85
[2021-10-21] VITALS: BP 123/71
[2021-10-21] MEDS: VANCOMYCIN HCL 750 MG, VIAL MATE ADAPTER 1 EACH in NS 250 ML IV SCH ×2 (01:40→09:27)
[2021-10-21] MEDS: PIPERACILLIN/TAZOBACTAM SOD 3.375 GM in D5W MINI-BAG PLUS 50 ML IV SCH ×4 (03:49→21:46)
[2021-10-21 04:00] VITALS: BP 133/72
[2021-10-21 05:24] LABS: BASO % 0.4 % (0.0-1.0); EOS # 0.1 10^3/uL (0.0-0.5); HEMATOCRIT 29.9 % (36.0-47.0); HEMOGLOBIN 9.8 g/dl (12.0-15.5); LYMPH # 1.3 10^3/uL (1.5-5.0); MEAN CORPUSCULAR HGB CONC 32.8 g/dl (32.0-36.5); MEAN CORPUSCULAR VOLUME 88.5 fl (80.0-96.0); MONO # 0.4 10^3/uL (0.0-0.8); MONO % 6.8 % (2.0-8.0); NEUTROPHILS # 3.7 10^3/uL (1.5-8.5); NEUTROPHILS % 67.4 % (36.0-66.0); PLATELET COUNT, AUTOMATED 205 10^3/uL (150-450); RED BLOOD COUNT 3.38 10^6/uL (4.00-5.40); WHITE BLOOD COUNT 5.4 10^3/uL (4.0-10.0)
[2021-10-21 05:40] LABS: BLOOD UREA NITROGEN 21 MG/DL (7-18); CALCIUM LEVEL 8.4 MG/DL (8.5-10.1); CARBON DIOXIDE LEVEL 21 MEQ/L (21-32); CHLORIDE LEVEL 114 MEQ/L (98-107); CREATININE FOR GFR 0.99 MG/DL (0.55-1.30); GLOMERULAR FILTRATION RATE > 60.0 (>60); GLUCOSE, FASTING 332 MG/DL (70-100); POTASSIUM SERUM 4.4 MEQ/L (3.5-5.1); SODIUM LEVEL 143 MEQ/L (136-145)
[2021-10-21] MEDS: HumaLOG INSULIN (NovoLOG) PER UNIT SC SCH ×4 (08:02→21:52)
[2021-10-21] MEDS: LEVEMIR (INSULIN DETEMIR) 1 UNITS/0.01ML SC SCH ×2 (08:02→21:53)
[2021-10-21] MEDS: ACETAMINOPHEN TAB 650MG DOSE (2X325MG) PO PRN ×3 (08:03→22:52)
[2021-10-21 08:28] VITALS: BP 136/72
[2021-10-21] MEDS ORDERED: INFLUENZA QUADRIVALENT PF VACCINE 0.5ML SYRINGE IM ONE (09:00)
--- NOTE | 2021-10-21 09:53 | IPNPDOC ---
Subjective Date Seen The patient was seen on 10/20/21. Subjective Chief Complaint/HPI Patient complains of a headache. Says that the swelling on the right side of her face and eyes has gone down however now the swelling is more on the left periorbital region and left side of the face. Denies any visual problem. Only has difficulty in opening her eyes on the left. No fever or chills. No weakness. Objective Physical Examination General Exam: Positive: Alert, Cooperative, No Acute Distress Eye Exam: Positive: PERRLA, EOMI, Ptosis, Other Eye Symptoms (Periorbital edema now left greater than right); Negative: Conjunctiva & lids normal, Sclera icteric ENT Exam: Positive: Atraumatic, Mucous membr. moist/pink, Pharynx Normal, Other ENT Neck Exam: Positive: Other (+trach); Negative: JVD, thyromegaly Chest Exam: Positive: Clear to auscultation, Normal air movement Heart Exam: Positive: Rate Normal, Regular Rhythm, Normal S1, Normal S2; Negative: Murmurs, Rubs Telemetry: Positive: No significant arrhythmia Abdomen Exam: Positive: Normal bowel sounds, Soft; Negative: Tenderness, Hepatospenomegaly Extremity Exam: Positive: Normal pulses; Negative: Clubbing, Cyanosis, Edema Skin Exam: Positive: Nl turgor and temperature, Lesion, Other skin issue (raised scab on scalp, towards occiput; surrounding redness, redness to eyes and swelling of eyelids); Negative: Breakdown Neuro Exam: Positive: Normal Speech, Strength at 5/5 X4 ext, Normal Tone, Cranial Nerves 3-12 NL, Reflexes 2+ Psych Exam: Positive: Memory Intact, Oriented x 3 Assessment /Plan Assessment 35-year-old female with past medical history of type 1 diabetes, 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 She had noted it for 3 days and was growing bigger so had come to the emergency room on 10/18/2021 given a course of antibiotics and a shampoo and discharged home returns back to ED on 10/19/2021. She was unable to fill her antibiotic prescription as the pharmacy was closed. She returned back to the ED on 10/19/2021 for increased swelling of the scalp lesion and with the swelling extending downwards to her forehead and eyes causing difficulty in opening her eyes. CT of the orbits showed preseptal edema. Patient was admitted for preseptal cellulitis. In the ED she was also noted to have uncontrolled blood sugars with A1c of 11.2 her bicarb was borderline low and her pH was at 7.3. It seemed like she was on the verge of going into DKA. Preseptal cellulitis We will continue with Zosyn and Vanco Pain control with Toradol and Tylenol Scalp lesion Likely a furuncle it should be covered with the Vanco and Zosyn. If it does not improve may need surgical evaluation for incision and drainage. Type 1 diabetes Sugars almost at DKA however we have been able to bring her back from daycare by giving lispro every 4 hours Now we will change her insulin to lispro before meals and at bedtime and continue with Levemir Fingersticks before meals and at bedtime Tracheostomy Tracheal stenosis Tracheostomy care as per protocol. Plan/VTE VTE Prophylaxis Ordered?: Yes VS, I&O, 24H, Fishbone Vital Signs/I&O Vital Signs Date Time Temp Pulse Resp B/P (MAP) Pulse Ox O2 Delivery O2 Flow Rate FiO2 10/20/21 12:30 97.8 84 140/90 (107) 100 10/20/21 05:00 16 Room Air I&O- Last 24 Hours up to 6 AM 10/20/21 06:00 Intake Total 2250 ml Output Total 700 ml Balance 1550 ml Laboratory Data 24H LABS Laboratory Tests 2 10/19/21 14:49: Bedside Glucose (Misc Panel) 337H 10/19/21 18:27: Bedside Glucose (Misc Panel) 444H 10/20/21 03:08: Bedside Glucose (Misc Panel) 365H 10/20/21 07:00: Bedside Glucose (Misc Panel) 219H 10/20/21 07:29: Immature Granulocyte % (Auto) 0.7, Neutrophils (%) (Auto) 76.8H, Lymphocytes (%) (Auto) 17.0L, Monocytes (%) (Auto) 5.1, Eosinophils (%) (Auto) 0.1, Basophils (%) (Auto) 0.3, Neutrophils # (Auto) 6.9, Lymphocytes # (Auto) 1.5, Monocytes # (Auto) 0.5, Eosinophils # (Auto) 0.0, Basophils # (Auto) 0.0, Nucleated Red Blood Cells % (auto) 0.0, Anion Gap 8, Glomerular Filtration Rate > 60.0, Calcium Level 9.0, B-Hydroxybutyrate 12.74H 10/20/21 11:09: Bedside Glucose (Misc Panel) 178H 10/20/21 12:52: Urine Color STRAW, Urine Appearance CLEAR, Urine pH 6.0, Urine Specific [place] 1.024, Urine Protein 1+H, Urine Glucose (UA) 3+H, Urine Ketones 1+H, Urine Blood NEGATIVE, Urine Nitrite NEGATIVE, Urine Bilirubin NEGATIVE, Urine Urobilinogen 0.2, Urine Leukocyte Esterase NEGATIVE, Urine WBC (Auto) 1, Urine RBC (Auto) 0, Urine Hyaline Casts (Auto) 0, Urine Bacteria (Auto) NEGATIVE, Urine Squamous Epithelial Cells 0, Urine Sperm (Auto) , Trichomonas vaginalis (PCR) NOT DETECTED 10/20/21 13:31: Bedside Glucose (Misc Panel) 242H CBC/BMP Laboratory Tests 10/20/21 07:29 Microbiology Microbiology 10/19/21 Blood Culture - Preliminary, Resulted No growth after 24 hours . All specim... 10/19/21 Blood Culture - Preliminary, Resulted No growth after 24 hours . All specim... Nelly Lizarraga MD Oct 20, 2021 14:33
--- NOTE | 2021-10-21 09:58 | IPNPDOC ---
Subjective Date Seen The patient was seen on 10/21/21. Subjective Chief Complaint/HPI Facial swelling and periorbital swelling much improved. scalp abscess has now started to drain. I was able to express quite a bit of pus at bedside. will send it for culture and gram statin. Objective Physical Examination General Exam: Positive: Alert, Cooperative, No Acute Distress Eye Exam: Positive: PERRLA, EOMI, Other Eye Symptoms (some residual swelling below the eyes. ); Negative: Sclera icteric ENT Exam: Positive: Atraumatic, Mucous membr. moist/pink, Pharynx Normal, Other ENT Neck Exam: Positive: Other (+trach); Negative: JVD, thyromegaly Chest Exam: Positive: Clear to auscultation, Normal air movement Heart Exam: Positive: Rate Normal, Regular Rhythm, Normal S1, Normal S2; Negative: Murmurs, Rubs Telemetry: Positive: No significant arrhythmia Abdomen Exam: Positive: Normal bowel sounds, Soft; Negative: Tenderness, Hepatospenomegaly Extremity Exam: Positive: Normal pulses; Negative: Clubbing, Cyanosis, Edema Skin Exam: Positive: Nl turgor and temperature, Lesion, Other skin issue (raised scab on scalp, towards occiput; surrounding redness, redness to eyes and swelling of eyelids); Negative: Breakdown Neuro Exam: Positive: Normal Speech, Strength at 5/5 X4 ext, Normal Tone, Cranial Nerves 3-12 NL, Reflexes 2+ Psych Exam: Positive: Memory Intact, Oriented x 3 Assessment /Plan Assessment 35-year-old female with past medical history of type 1 diabetes, 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 She had noted it for 3 days and was growing bigger so had come to the emergency room on 10/18/2021 given a course of antibiotics and a shampoo and discharged home returns back to ED on 10/19/2021. She was unable to fill her antibiotic prescription as the pharmacy was closed. She returned back to the ED on 10/19/2021 for increased swelling of the scalp lesion and with the swelling extending downwards to her forehead and eyes causing difficulty in opening her eyes. CT of the orbits showed preseptal edema. Patient was admitted for preseptal cellulitis. In the ED she was also noted to have uncontrolled blood sugars with A1c of 11.2 her bicarb was borderline low and her pH was at 7.3. It seemed like she was on the verge of going into DKA. Preseptal cellulitis We will continue with Zosyn and Vanco from scalp abscess. Pain control with Toradol and Tylenol Scalp abscess Pus is expressed at bedside will send for C/S and gram statin. Type 1 diabetes poorly controlled. continue Levemir and lispro. Tracheostomy Tracheal stenosis Tracheostomy care as per protocol. Plan/VTE VTE Prophylaxis Ordered?: Yes VS, I&O, 24H, Fishbone Vital Signs/I&O Vital Signs Date Time Temp Pulse Resp B/P (MAP) Pulse Ox O2 Delivery O2 Flow Rate FiO2 10/21/21 08:28 97.2 86 17 136/72 (93) 100 Room Air I&O- Last 24 Hours up to 6 AM 10/21/21 06:00 Intake Total 2186 ml Output Total 500 ml Balance 1686 ml Laboratory Data 24H LABS Laboratory Tests 2 10/20/21 11:09: Bedside Glucose (Misc Panel) 178H 10/20/21 12:52: Urine Color STRAW, Urine Appearance CLEAR, Urine pH 6.0, Urine Specific [place] 1.024, Urine Protein 1+H, Urine Glucose (UA) 3+H, Urine Ketones 1+H, Urine Blood NEGATIVE, Urine Nitrite NEGATIVE, Urine Bilirubin NEGATIVE, Urine Urobilinogen 0.2, Urine Leukocyte Esterase NEGATIVE, Urine WBC (Auto) 1, Urine RBC (Auto) 0, Urine Hyaline Casts (Auto) 0, Urine Bacteria (Auto) NEGATIVE, Urine Squamous Epithelial Cells 0, Urine Sperm (Auto) , Chlamydia trachomatis DNA (ANDREE) NEGATIVE, Neisseria gonorrhoeae DNA (ANDREE) NEGATIVE, Trichomonas vaginalis (PCR) NOT DETECTED 10/20/21 13:31: Bedside Glucose (Misc Panel) 242H 10/20/21 18:35: Bedside Glucose (Misc Panel) 210H 10/20/21 22:57: Bedside Glucose (Misc Panel) 347H 10/21/21 04:30: Immature Granulocyte % (Auto) 0.4, Neutrophils (%) (Auto) 67.4H, Lymphocytes (%) (Auto) 23.0L, Monocytes (%) (Auto) 6.8, Eosinophils (%) (Auto) 2.0, Basophils (%) (Auto) 0.4, Neutrophils # (Auto) 3.7, Lymphocytes # (Auto) 1.3L, Monocytes # (Auto) 0.4, Eosinophils # (Auto) 0.1, Basophils # (Auto) 0.0, Nucleated Red Blood Cells % (auto) 0.0, Anion Gap 8, Glomerular Filtration Rate > 60.0, Calcium Level 8.4L 10/21/21 07:52: Bedside Glucose (Misc Panel) 111H 10/21/21 08:38: Vancomycin Level Trough 20.4H CBC/BMP Laboratory Tests 10/21/21 04:30 Microbiology Microbiology 10/19/21 Blood Culture - Preliminary, Resulted No Growth after 48 hours. All Specime... 10/19/21 Blood Culture - Preliminary, Resulted No Growth after 48 hours. All Specime... Nelly Lizarraga MD Oct 21, 2021 09:58
--- NOTE | 2021-10-21 10:06 | ECGEPIP ---
[facility] - ED Test Date: 2021-10-19 Pat Name: KIRIT BURNETT Department: Room: - Gender: Female Direct Care Staffer: andreina : 1985 Requested By: MARQUIS Jean-Baptiste Order Number: [id number] Reading MD: Marquis Bob Measurements Intervals [place] Rate: 93 P: 57 [place]: 164 QRS: 21 QRSD: 84 T: 47 QT: 358 QTc: 445 Interpretive Statements Normal sinus rhythm Delayed anterior R wave progression Nonspecific ST-T wave abnormalities Similar to tracing done 03-01-21 Electronically Signed on 10-21-2021 10:06:04 EST by Marquis Bob
[2021-10-21 12:00] VITALS: BP 159/92
[2021-10-21] MEDS: KETOCONAZOLE 2% CREAM TOP SCH ×2 (12:03→21:53)
[2021-10-21 16:00] VITALS: BP 160/96
[2021-10-21] MEDS: SODIUM CHLORIDE 0.9% INJ 10 ML SYR IV SCH ×2 (17:10→18:19)
[2021-10-21 20:00] VITALS: BP 120/73
[2021-10-21] MEDS ORDERED: VANCOMYCIN HCL 750 MG, VIAL MATE ADAPTER 1 EACH in NS 250 ML IV SCH (21:00)
[2021-10-22] VITALS: BP 130/84
[2021-10-22] MEDS: PIPERACILLIN/TAZOBACTAM SOD 3.375 GM in D5W MINI-BAG PLUS 50 ML IV SCH (03:17)
[2021-10-22 04:00] VITALS: BP 141/93
[2021-10-22 05:35] LABS: BASO % 0.7 % (0.0-1.0); EOS # 0.2 10^3/uL (0.0-0.5); EOS % 3.8 % (0.0-3.0); HEMATOCRIT 30.7 % (36.0-47.0); HEMOGLOBIN 10.2 g/dl (12.0-15.5); LYMPH % 22.9 % (24.0-44.0); MEAN CORPUSCULAR HEMOGLOBIN 28.7 pg (27.0-33.0); MEAN CORPUSCULAR HGB CONC 33.2 g/dl (32.0-36.5); MEAN CORPUSCULAR VOLUME 86.5 fl (80.0-96.0); MONO # 0.3 10^3/uL (0.0-0.8); MONO % 7.1 % (2.0-8.0); NEUTROPHILS # 2.7 10^3/uL (1.5-8.5); NEUTROPHILS % 65.3 % (36.0-66.0); PLATELET COUNT, AUTOMATED 200 10^3/uL (150-450); RED BLOOD COUNT 3.55 10^6/uL (4.00-5.40); WHITE BLOOD COUNT 4.2 10^3/uL (4.0-10.0)
[2021-10-22 05:57] LABS: BLOOD UREA NITROGEN 15 MG/DL (7-18); CALCIUM LEVEL 8.7 MG/DL (8.5-10.1); CARBON DIOXIDE LEVEL 23 MEQ/L (21-32); CHLORIDE LEVEL 113 MEQ/L (98-107); CREATININE FOR GFR 0.85 MG/DL (0.55-1.30); GLOMERULAR FILTRATION RATE > 60.0 (>60); GLUCOSE, FASTING 212 MG/DL (70-100); SODIUM LEVEL 143 MEQ/L (136-145)
[2021-10-22 08:23] VITALS: BP 123/78
[2021-10-22] MEDS ORDERED: VANCOMYCIN HCL 1,000 MG, VIAL MATE ADAPTER 1 EACH in NS 250 ML IV SCH (09:00)
[2021-10-22] MEDS ORDERED: CEFU50TA PO (09:35)
[2021-10-22] MEDS: LEVEMIR (INSULIN DETEMIR) 1 UNITS/0.01ML SC SCH (10:07)
[2021-10-22] MEDS: HumaLOG INSULIN (NovoLOG) PER UNIT SC SCH (10:08)
[2021-10-22] MEDS: ACETAMINOPHEN TAB 650MG DOSE (2X325MG) PO PRN (10:09)
[2021-10-22] MEDS: KETOCONAZOLE 2% CREAM TOP SCH (10:09)
[2021-10-22] MEDS ORDERED: CEFD1CAP8 PO (11:16)
[2021-10-22] MEDS ORDERED: DOXY-350 PO (11:16)
--- NOTE | 2021-10-22 11:18 | DS.PDOC ---
Discharge Summary General Date of Admission Oct 19, 2021 at 18:38 Date of Discharge 10/22/21 Discharge Summary PROCEDURES PERFORMED DURING STAY: [None]. DISCHARGE DIAGNOSES: Scalp abscess Preseptal cellulitis. Dm type 1 Tracheal stenosis status post emergency tracheostomy COMPLICATIONS/CHIEF COMPLAINT: Preseptal Cellulitis Of Left And Right Eye. 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 She had noted it for 3 days and was growing bigger so had come to the emergency room on 10/18/2021 given a course of antibiotics and a shampoo and discharged home returns back to ED on 10/19/2021. She was unable to fill her antibiotic prescription as the pharmacy was closed. She returned back to the ED on 10/19/2021 for increased swelling of the scalp lesion and with the swelling extending downwards to her forehead and eyes causing difficulty in opening her eyes. CT of the orbits showed preseptal edema. Patient was admitted for preseptal cellulitis. In the ED she was also noted to have uncontrolled blood sugars with A1c of 11.2 her bicarb was bor derline low and her pH was at 7.3. It seemed like she was on the verge of going into DKA. Preseptal cellulitis Given Zosyn and Vanco x 2 days from scalp abscess. Pain control with Toradol and Tylenol will discharge with Cefdinir and doxycycline. Scalp abscess Pus is expressed at bedside. Improving Continue warm compresses at home. C/S and gram statin pending. Type 1 diabetes poorly controlled. continue Home insulin regimen Tracheostomy Tracheal stenosis Tracheostomy care as per protocol. DISCHARGE MEDICATIONS: Please see below. ALLERGIES: Please see below. PHYSICAL EXAMINATION ON DISCHARGE: VITAL SIGNS: Please see below. General Exam: Positive: Alert, Cooperative, No Acute Distress Eye Exam: Positive: PERRLA, EOMI, Other Eye Symptoms (some residual swelling below the eyes. ); Negative: Sclera icteric ENT Exam: Positive: Atraumatic, Mucous membr. moist/pink, Pharynx Normal, Other ENT Neck Exam: Positive: Other (+trach); Negative: JVD, thyromegaly Chest Exam: Positive: Clear to auscultation, Normal air movement Heart Exam: Positive: Rate Normal, Regular Rhythm, Normal S1, Normal S2; Negative: Murmurs, Rubs Telemetry: Positive: No significant arrhythmia Abdomen Exam: Positive: Normal bowel sounds, Soft; Negative: Tenderness, Hepatosplenomegaly Extremity Exam: Positive: Normal pulses; Negative: Clubbing, Cyanosis, Edema Skin Exam: Positive: Nl turgor and temperature, Lesion, Other skin issue (raised scab on scalp, towards occiput; surrounding redness, redness to eyes and swelling of eyelids); Negative: Breakdown Neuro Exam: Positive: Normal Speech, Strength at 5/5 X4 ext, Normal Tone, Cranial Nerves 3-12 NL, Reflexes 2+ Psych Exam: Positive: Memory Intact, Oriented x 3 LABORATORY DATA: Please see below. IMAGING: FINDINGS: Orbital cavity: There is mild bilateral preseptal periorbital edema. Postseptal regions, globes extraocular muscles and optic nerves appear unremarkable bilaterally. Paranasal sinuses: Normal. No air-fluid levels. Auditory system: Retained cerumen in the left external auditory canal. Nasal cavity: Bilateral quinten bullosa. Bones/joints: No acute fracture. Soft tissues: No significant facial soft tissue swelling. IMPRESSION: There is mild bilateral preseptal periorbital edema. ACTIVITY: [As tolerated]. DIET: As tolerated DISCHARGE PLAN: Home DISCHARGE INSTRUCTIONS: PMD in 1 week ITEMS TO FOLLOWUP ON ON OUTPATIENT: final wound culture DISCHARGE CONDITION: [Stable]. TIME SPENT ON DISCHARGE: 35 minutes. Vital Signs/I&Os Vital Signs Date Time Temp Pulse Resp B/P (MAP) Pulse Ox O2 Delivery O2 Flow Rate FiO2 10/22/21 08:23 98.0 84 17 123/78 (93) 98 Room Air I&O- Last 24 Hours up to 6 AM 10/22/21 06:00 Intake Total 1490 ml Output Total 600 ml Balance 890 ml Laboratory Data Labs 24H Laboratory Tests 2 10/21/21 11:59: Bedside Glucose (Misc Panel) 140H 10/21/21 17:04: Bedside Glucose (Misc Panel) 211H 10/21/21 21:44: Bedside Glucose (Misc Panel) 261H 10/22/21 04:50: Immature Granulocyte % (Auto) 0.2, Neutrophils (%) (Auto) 65.3, Lymphocytes (%) (Auto) 22.9L, Monocytes (%) (Auto) 7.1, Eosinophils (%) (Auto) 3.8H, Basophils (%) (Auto) 0.7, Neutrophils # (Auto) 2.7, Lymphocytes # (Auto) 1.0L, Monocytes # (Auto) 0.3, Eosinophils # (Auto) 0.2, Basophils # (Auto) 0.0, Nucleated Red Blood Cells % (auto) 0.0, Anion Gap 7L, Glomerular Filtration Rate > 60.0, Calcium Level 8.7 10/22/21 08:08: Vancomycin Level Trough 12.5 CBC/BMP Laboratory Tests 10/22/21 04:50 FSBS Laboratory Tests Test 10/21/21 11:59 10/21/21 17:04 10/21/21 21:44 Range/Units Bedside Glucose (Misc Panel) 140 211 261 70-105 MG/DL Microbiology Microbiology 10/21/21 Gram Stain - Final, Resulted 10/21/21 Wound Culture, Resulted Pending 10/19/21 Blood Culture - Preliminary, Resulted No Growth after 72 hours. All specime... 10/19/21 Blood Culture - Preliminary, Resulted No Growth after 72 hours. All specime... Discharge Medications Scheduled Beclomethasone Dipropionate (Qvar Redihaler) 80 Mcg/Act Hfa.aeroba, 2 PUFFS INH DAILY, (Reported) Cefuroxime Axetil (Cefuroxime) 500 Mg Tablet, 1 TAB PO BID Insulin Degludec (Tresiba Flextouch U-100) 100 Unit/1 Ml Insuln.pen, 25 UNIT SC BID, (Reported) Insulin Human Lispro (Novolog) 100 U/Ml Inj, 1 DOSE SC ACHS, (Reported) PER SLIDING SCALE Allergies Coded Allergies: TREES (Verified Allergy, Unknown, 12/10/20) mold (Verified Allergy, Unknown, 12/10/20) Nelly Lizarraga MD Oct 22, 2021 11:18
== END 2021-10-22 11:59 | disposition home or self-care (01) | DRG 383 ==
LOC: M ED 20:48 → M ED INP 10-19 18:38 → ENRESERV 10-20 16:50 → M PCU 10-20 21:10
PROVIDERS: ADMIT Family Medicine; ATTEND Internal Medicine Nephrology
PROC: 05H933Z Insertion of Infusion Device into Right Brachial Vein, Percutaneous Approach (ICD-10-PCS; principal; 2021-10-19 16:11)
DX: L03.213 Periorbital cellulitis (principal); Z93.0 Tracheostomy status; E10.65 Type 1 diabetes mellitus with hyperglycemia; Z87.891 Personal history of nicotine dependence; G43.909 Migraine, unspecified, not intractable, without status migrainosus; K21.9 Gastro-esophageal reflux disease without esophagitis; G47.00 Insomnia, unspecified; Z20.822 Contact with and (suspected) exposure to COVID-19; Z79.4 Long term (current) use of insulin; Z79.899 Other long term (current) drug therapy; Z91.048 Other nonmedicinal substance allergy status; L02.811 Cutaneous abscess of head [any part, except face]

== ENCOUNTER 2022-01-01 14:02 | Inpatient (IN) | payer OTHER ==
[~2022-01-01] VITALS: Ht 160 cm; Wt 63.6 kg
[~2022-01-01 14:02] MED LIST changes: +CEFD300C41 PO; +CEFU50TA PO; -LISI-898 PO; +LISI5TAB11 PO
[2022-01-01] MEDS ORDERED: INSULIN REGULAR IN 0.9 % NACL 100 UNIT in IV 1 EA IV SCH ×2 (14:50)
[2022-01-01] MEDS ORDERED: HumuLIN R (REGULAR) INSULIN (NovoLIN R) **100U/ML** PER UNIT IV ONE (14:50)
[2022-01-01] MEDS ORDERED: NS 1,000 ML IV ONE ×3 (14:50→18:00)
[2022-01-01 14:57] LABS: VENOUS BASE EXCESS -32.8 (-2.0-2.0); VENOUS HCO3 2.5 MEQ/L (23.0-27.0); VENOUS O2 SATURATION 98.3 % (60.0-80.0); VENOUS PARTIAL PRESSURE CO2 19.2 mmHg (38.0-50.0); VENOUS PARTIAL PRESSURE O2 146.5 mmHg (30.0-50.0); VENOUS PH 6.733 UNITS (7.330-7.430); VENOUS STANDARD HCO3 3.9 MEQ/L; VENOUS TOTAL CO2 3.1 MEQ/L (24.0-28.0)
[2022-01-01] MEDS ORDERED: SODIUM BICARBONATE 8.4% INJ 50 ML SYRINGE IV STA ×2 (14:58→19:03)
[2022-01-01 15:00] LABS: BASO # 0.1 10^3/uL (0.0-0.2); BASO % 0.3 % (0.0-1.0); EOS % 0.1 % (0.0-3.0); HEMATOCRIT 42.5 % (36.0-47.0); HEMOGLOBIN 13.3 g/dl (12.0-15.5); LYMPH # 2.4 10^3/uL (1.5-5.0); LYMPH % 12.6 % (24.0-44.0); MEAN CORPUSCULAR HEMOGLOBIN 29.1 pg (27.0-33.0); MEAN CORPUSCULAR HGB CONC 31.3 g/dl (32.0-36.5); MONO % 8.3 % (2.0-8.0); NEUTROPHILS # 14.8 10^3/uL (1.5-8.5); NEUTROPHILS % 77.9 % (36.0-66.0); PLATELET COUNT, AUTOMATED 363 10^3/uL (150-450); RED BLOOD COUNT 4.57 10^6/uL (4.00-5.40)
[2022-01-01] MEDS ORDERED: CALCIUM GLUCONATE 1,000 MG in D5W MINI-BAG PLUS 100 ML IV ONE (15:00)
[2022-01-01 15:03] LABS: ABG HCO3 1.9 MEQ/L (22.0-26.0); ABG O2 SATURATION 98.9 % (95.0-99.0); ABG PARTIAL PRESSURE O2 177.6 mmHg (75.0-100.0); ABG STANDARD HCO3 4.3 MEQ/L (22.0-26.0); ABG TOTAL CO2 2.3 MEQ/L (22.0-29.0)
[2022-01-01 15:07] LABS: ABG pH (ARTERIAL) 6.793 UNITS (7.350-7.450)
[2022-01-01 15:08] LABS: ABG PARTIAL PRESSURE CO2 12.7 mmHg (35.0-45.0)
[2022-01-01 15:20] LABS: MONO # 1.6 10^3/uL (0.0-0.8)
[2022-01-01] MEDS ORDERED: SODIUM BICARBONATE 150 MEQ in STERILE WATER LITER BAG 1,000 ML IV SCH (15:25)
[2022-01-01 15:30] LABS: OSMOLALITY SERUM 359 MOSM/KG (275-295)
[2022-01-01 15:34] LABS: HEMOGLOBIN A1c 11.2 %
[2022-01-01 15:53] LABS: ACETONE/KETONE > 46.00 MG/DL (<2.81); ALBUMIN 3.2 GM/DL (3.2-5.2); ALT/SGPT 19 U/L (12-78); BILIRUBIN,DIRECT 0.1 MG/DL (0.0-0.2); BILIRUBIN,TOTAL 0.3 MG/DL (0.2-1.0); BLOOD UREA NITROGEN 40 MG/DL (7-18); CALCIUM LEVEL 9.6 MG/DL (8.5-10.1); CARBON DIOXIDE LEVEL 3 MEQ/L (21-32); CHLORIDE LEVEL 105 MEQ/L (98-107); CREATININE FOR GFR 2.19 MG/DL (0.55-1.30); ETHYL ALCOHOL (ETHANOL) < 0.003 % (0.000-0.010); GLOMERULAR FILTRATION RATE 27.3 (>60); GLUCOSE, FASTING 729 MG/DL (70-100); LIPASE 36 U/L (73-393); PHOSPHORUS LEVEL 7.9 MG/DL (2.5-4.9); POTASSIUM SERUM 6.7 MEQ/L (3.5-5.1); SODIUM LEVEL 135 MEQ/L (136-145); TOTAL PROTEIN 7.3 GM/DL (6.4-8.2)
[2022-01-01 15:54] LABS: AMPHETAMINES LEVEL URINE NEGATIVE (NEGATIVE); BARBITURATES URINE NEGATIVE (NEGATIVE); BENZODIAZEPINES URINE NEGATIVE (NEGATIVE); CANNABINOIDS URINE NEGATIVE (NEGATIVE); COCAINE METABOLITE URINE NEGATIVE (NEGATIVE); METHADONE URINE NEGATIVE (NEGATIVE); OPIATES URINE NEGATIVE (NEGATIVE); PHENCYCLIDINE URINE NEGATIVE (NEGATIVE)
[2022-01-01 16:55] LABS: ABG BASE EXCESS -29.4 (-2.0-2.0); ABG HCO3 2.6 MEQ/L (22.0-26.0); ABG PARTIAL PRESSURE O2 188.6 mmHg (75.0-100.0); ABG STANDARD HCO3 4.9 MEQ/L (22.0-26.0)
[2022-01-01 16:57] LABS: ABG PARTIAL PRESSURE CO2 14.1 mmHg (35.0-45.0); ABG pH (ARTERIAL) 6.878 UNITS (7.350-7.450)
[2022-01-01] MEDS ORDERED: LIDOCAINE 2% 5ML JELLY UROJET TOP ONE (17:00)
[2022-01-01] MEDS ORDERED: INSULIN IV RATE CHANGE DOCUMENTATION ML/HR XX SCH (17:30)
[2022-01-01] MEDS ORDERED: GLUCAGON INJ 1MG VIAL SC PRN (17:30)
[2022-01-01] MEDS ORDERED: GLUCOSE 4GM CHEW TABLET PO PRN (17:30)
[2022-01-01] MEDS ORDERED: ERGO500029 PO (17:40)
[2022-01-01] MEDS ORDERED: COMMENTS (17:41)
[2022-01-01] MEDS ORDERED: HOME MED LIST COMPLETE! XX SCH (17:45)
[2022-01-01] MEDS: INSULIN REGULAR IN 0.9 % NACL 100 UNIT in IV 1 EA IV SCH ×2 (18:49)
[2022-01-01] MEDS: dexameTHASONE 20MG/5ML VIAL (J1100 PER 1MG) IV SCH (18:53)
[2022-01-01] MEDS: PANTOPRAZOLE 40MG VIAL (C9113 PER 1) IV SCH (18:54)
[2022-01-01 19:10] LABS: CALCIUM LEVEL 9.1 MG/DL (8.5-10.1); CREATININE FOR GFR 1.89 MG/DL (0.55-1.30); GLOMERULAR FILTRATION RATE 32.4 (>60); MAGNESIUM LEVEL 2.8 MG/DL (1.8-2.4); PHOSPHORUS LEVEL 4.1 MG/DL (2.5-4.9); POTASSIUM SERUM 4.6 MEQ/L (3.5-5.1)
[2022-01-01] MEDS: cefTRIAXone SOD 1 GM in D5W MINI-BAG PLUS 50 ML IV SCH (20:56)
[2022-01-01] MEDS: INSULIN IV RATE CHANGE DOCUMENTATION ML/HR XX SCH ×2 (21:04→23:07)
[2022-01-01] MEDS: DOXYCYCLINE HYCLATE 100 MG in D5W MINI-BAG PLUS 100 ML IV SCH (21:51)
[2022-01-01] MEDS ORDERED: [UNRECOGNIZED DRUG - OTHER] IV SCH (22:00)
[2022-01-01] MEDS ORDERED: SODIUM BICARBONATE 75 MEQ IV SCH (22:00)
[2022-01-01] MEDS ORDERED: REMDESIVIR 200 MG in NS 250 ML IV ONE (22:00)
[2022-01-01 22:17] LABS: CALCIUM LEVEL 8.6 MG/DL (8.5-10.1); CREATININE FOR GFR 1.53 MG/DL (0.55-1.30); GLOMERULAR FILTRATION RATE 41.4 (>60); MAGNESIUM LEVEL 2.3 MG/DL (1.8-2.4); PHOSPHORUS LEVEL 0.9 MG/DL (2.5-4.9); POTASSIUM SERUM 3.7 MEQ/L (3.5-5.1)
[2022-01-01] MEDS: HEPARIN SOD (PORCINE) 5000UNITS/ML 1ML VIAL/SYRINGE SQ SCH (22:46)
[2022-01-02] MEDS ORDERED: SODIUM CHLORIDE 0.9% INJ 10 ML SYR IV ONE
[2022-01-02] MEDS: INSULIN IV RATE CHANGE DOCUMENTATION ML/HR XX SCH ×4 (01:02→04:02)
[2022-01-02 02:27] LABS: CALCIUM LEVEL 8.4 MG/DL (8.5-10.1); CREATININE FOR GFR 1.36 MG/DL (0.55-1.30); GLOMERULAR FILTRATION RATE 47.4 (>60); PHOSPHORUS LEVEL 0.5 MG/DL (2.5-4.9); POTASSIUM SERUM 3.4 MEQ/L (3.5-5.1)
[2022-01-02] MEDS ORDERED: SODIUM BICARBONATE 75 MEQ in D5W 1,000 ML IV SCH (03:00)
[2022-01-02] MEDS: INSULIN REGULAR IN 0.9 % NACL 100 UNIT in IV 1 EA IV SCH ×8 (03:10→20:23)
[2022-01-02] MEDS: KCL 10MEQ/100ML SWI (KRUN) 10 MEQ in IV 1 EA IV SCH ×2 (03:47→04:59)
[2022-01-02 04:40] LABS: CALCIUM LEVEL 8.1 MG/DL (8.5-10.1); CREATININE FOR GFR 1.35 MG/DL (0.55-1.30); GLOMERULAR FILTRATION RATE 47.8 (>60); MAGNESIUM LEVEL 1.8 MG/DL (1.8-2.4); PHOSPHORUS LEVEL 0.7 MG/DL (2.5-4.9); POTASSIUM SERUM 3.3 MEQ/L (3.5-5.1)
[2022-01-02] MEDS: HEPARIN SOD (PORCINE) 5000UNITS/ML 1ML VIAL/SYRINGE SQ SCH ×3 (06:00→21:29)
[2022-01-02 06:41] LABS: VENOUS BASE EXCESS -9.2 (-2.0-2.0); VENOUS HCO3 15.9 MEQ/L (23.0-27.0); VENOUS O2 SATURATION 96.4 % (60.0-80.0); VENOUS PARTIAL PRESSURE CO2 31.7 mmHg (38.0-50.0); VENOUS PARTIAL PRESSURE O2 83.7 mmHg (30.0-50.0); VENOUS PH 7.317 UNITS (7.330-7.430); VENOUS STANDARD HCO3 17.1 MEQ/L; VENOUS TOTAL CO2 16.8 MEQ/L (24.0-28.0)
[2022-01-02 06:47] LABS: BASO % 0.1 % (0.0-1.0); HEMATOCRIT 29.8 % (36.0-47.0); LYMPH # 0.9 10^3/uL (1.5-5.0); LYMPH % 11.4 % (24.0-44.0); MEAN CORPUSCULAR HGB CONC 34.6 g/dl (32.0-36.5); MEAN CORPUSCULAR VOLUME 83.9 fl (80.0-96.0); MONO # 0.9 10^3/uL (0.0-0.8); MONO % 10.4 % (2.0-8.0); NEUTROPHILS # 6.3 10^3/uL (1.5-8.5); NEUTROPHILS % 77.5 % (36.0-66.0); RED BLOOD COUNT 3.55 10^6/uL (4.00-5.40); WHITE BLOOD COUNT 8.1 10^3/uL (4.0-10.0)
[2022-01-02 06:49] LABS: HEMOGLOBIN 10.3 g/dl (12.0-15.5); PLATELET COUNT, AUTOMATED 174 10^3/uL (150-450)
[2022-01-02 07:19] LABS: ALBUMIN 2.5 GM/DL (3.2-5.2); ALT/SGPT 13 U/L (12-78); BILIRUBIN,DIRECT < 0.1 MG/DL (0.0-0.2); BILIRUBIN,TOTAL 0.3 MG/DL (0.2-1.0); TOTAL PROTEIN 5.8 GM/DL (6.4-8.2)
[2022-01-02] MEDS ORDERED: SODIUM BICARBONATE 75 MEQ in KCL 20MEQ IN D5W 1000ML 1,000 ML IV SCH ×2 (08:00)
[2022-01-02] MEDS ORDERED: POTASSIUM PHOSPHATE INJ 30 MMOL in D5W 500 ML IV ONE ×2 (08:00→20:00)
[2022-01-02] MEDS: PANTOPRAZOLE 40MG VIAL (C9113 PER 1) IV SCH (09:33)
[2022-01-02] MEDS: dexameTHASONE 20MG/5ML VIAL (J1100 PER 1MG) IV SCH (09:33)
[2022-01-02 10:15] LABS: CALCIUM LEVEL 8.6 MG/DL (8.5-10.1); CREATININE FOR GFR 1.38 MG/DL (0.55-1.30); GLOMERULAR FILTRATION RATE 46.6 (>60); MAGNESIUM LEVEL 1.8 MG/DL (1.8-2.4); PHOSPHORUS LEVEL 1.4 MG/DL (2.5-4.9); POTASSIUM SERUM 3.4 MEQ/L (3.5-5.1)
[2022-01-02] MEDS: DOXYCYCLINE HYCLATE 100 MG in D5W MINI-BAG PLUS 100 ML IV SCH ×2 (10:36→21:24)
[2022-01-02] MEDS: KCL 40MEQ IN D5/0.45NS 1000ML 1,000 ML IV SCH ×2 (12:28→20:16)
[2022-01-02 13:25] LABS: CALCIUM LEVEL 7.8 MG/DL (8.5-10.1); CREATININE FOR GFR 1.21 MG/DL (0.55-1.30); GLOMERULAR FILTRATION RATE 54.2 (>60); MAGNESIUM LEVEL 1.7 MG/DL (1.8-2.4); PHOSPHORUS LEVEL 3.2 MG/DL (2.5-4.9); POTASSIUM SERUM 3.9 MEQ/L (3.5-5.1)
[2022-01-02] MEDS: MAG SULF 1GM/100ML (MAG RUN) 1 GM in IV 1 EA IV SCH ×2 (15:49→16:59)
[2022-01-02 16:41] LABS: CALCIUM LEVEL 7.7 MG/DL (8.5-10.1); CREATININE FOR GFR 1.13 MG/DL (0.55-1.30); GLOMERULAR FILTRATION RATE 58.7 (>60); MAGNESIUM LEVEL 1.6 MG/DL (1.8-2.4); PHOSPHORUS LEVEL 1.9 MG/DL (2.5-4.9); POTASSIUM SERUM 3.7 MEQ/L (3.5-5.1)
[2022-01-02] MEDS ORDERED: KCL 10MEQ/100ML SWI (KRUN) 10 MEQ in IV 1 EA IV ONE (17:25)
[2022-01-02] MEDS: cefTRIAXone SOD 1 GM in D5W MINI-BAG PLUS 50 ML IV SCH (19:41)
[2022-01-02 20:14] LABS: BLOOD UREA NITROGEN 16 MG/DL (7-18); CALCIUM LEVEL 7.8 MG/DL (8.5-10.1); CARBON DIOXIDE LEVEL 23 MEQ/L (21-32); CHLORIDE LEVEL 114 MEQ/L (98-107); CREATININE FOR GFR 1.09 MG/DL (0.55-1.30); GLOMERULAR FILTRATION RATE > 60.0 (>60); GLUCOSE, FASTING 164 MG/DL (70-100); MAGNESIUM LEVEL 2.4 MG/DL (1.8-2.4); PHOSPHORUS LEVEL 1.4 MG/DL (2.5-4.9); POTASSIUM SERUM 3.4 MEQ/L (3.5-5.1); SODIUM LEVEL 144 MEQ/L (136-145)
[2022-01-02] MEDS ORDERED: LEVEMIR (INSULIN DETEMIR) 1 UNITS/0.01ML SC ONE (22:00)
[2022-01-02] MEDS: REMDESIVIR 100 MG in NS 250 ML IV SCH (22:26)
[2022-01-02] MEDS: SODIUM CHLORIDE 0.9% INJ 10 ML SYR IV SCH (23:23)
[2022-01-03] VITALS (7 sets, daily range): BP systolic 97–155; BP diastolic 52–101
[2022-01-03 02:57] LABS: BLOOD UREA NITROGEN 9 MG/DL (7-18); CALCIUM LEVEL 6.6 MG/DL (8.5-10.1); CARBON DIOXIDE LEVEL 18 MEQ/L (21-32); CHLORIDE LEVEL 120 MEQ/L (98-107); CREATININE FOR GFR 0.69 MG/DL (0.55-1.30); GLOMERULAR FILTRATION RATE > 60.0 (>60); GLUCOSE, FASTING 118 MG/DL (70-100); PHOSPHORUS LEVEL 2.1 MG/DL (2.5-4.9); POTASSIUM SERUM 3.4 MEQ/L (3.5-5.1); SODIUM LEVEL 147 MEQ/L (136-145)
[2022-01-03] MEDS: ACETAMINOPHEN TAB 650MG DOSE (2X325MG) PO PRN (03:59)
[2022-01-03] MEDS ORDERED: ONDANSETRON 4MG/2ML VIAL IV PRN (04:35)
[2022-01-03] MEDS: HEPARIN SOD (PORCINE) 5000UNITS/ML 1ML VIAL/SYRINGE SQ SCH ×3 (06:19→23:04)
[2022-01-03] MEDS: DEXTROSE 50% 50 ML SYRINGE IV PRN ×2 (07:07→09:23)
[2022-01-03 07:11] LABS: BLOOD UREA NITROGEN 11 MG/DL (7-18); CALCIUM LEVEL 7.8 MG/DL (8.5-10.1); CARBON DIOXIDE LEVEL 22 MEQ/L (21-32); CHLORIDE LEVEL 115 MEQ/L (98-107); CREATININE FOR GFR 0.78 MG/DL (0.55-1.30); GLOMERULAR FILTRATION RATE > 60.0 (>60); GLUCOSE, FASTING 24 MG/DL (70-100); MAGNESIUM LEVEL 2.2 MG/DL (1.8-2.4); PHOSPHORUS LEVEL 1.7 MG/DL (2.5-4.9); POTASSIUM SERUM 3.3 MEQ/L (3.5-5.1); SODIUM LEVEL 146 MEQ/L (136-145)
[2022-01-03] MEDS: HumaLOG INSULIN (NovoLOG) PER UNIT SC SCH ×4 (07:30→23:12)
[2022-01-03] MEDS ORDERED: K-PHOS ORIGINAL (POT.ACID PHOSPHATE) 500MG TAB PO SCH (09:00)
[2022-01-03] MEDS ORDERED: POTASSIUM CHLORIDE 10MEQ SR TABLET PO ONE (09:15)
[2022-01-03] MEDS: PANTOPRAZOLE 40MG VIAL (C9113 PER 1) IV SCH (09:27)
[2022-01-03] MEDS: DOXYCYCLINE HYCLATE 100 MG in D5W MINI-BAG PLUS 100 ML IV SCH ×2 (09:27→21:00)
[2022-01-03] MEDS: dexameTHASONE 20MG/5ML VIAL (J1100 PER 1MG) IV SCH (09:27)
[2022-01-03] MEDS ORDERED: D5W 1,000 ML IV SCH (09:45)
[2022-01-03] MEDS ORDERED: METOCLOPRAMIDE INJ 10MG/2ML VIAL (J2765 PER 1) IV ONE (10:30)
[2022-01-03] MEDS ORDERED: ISOVUE-370 76% 100ML VIAL As Ordered ONE (10:43)
[2022-01-03] MEDS: KCL 40MEQ IN D5/0.45NS 1000ML 1,000 ML IV SCH ×2 (11:08→20:59)
[2022-01-03] MEDS ORDERED: POTASSIUM PHOSPHATE INJ 20 MMOL in D5W 250 ML IV ONE (12:00)
[2022-01-03 16:09] LABS: BLOOD UREA NITROGEN 11 MG/DL (7-18); CALCIUM LEVEL 7.8 MG/DL (8.5-10.1); CARBON DIOXIDE LEVEL 22 MEQ/L (21-32); CHLORIDE LEVEL 111 MEQ/L (98-107); CREATININE FOR GFR 0.87 MG/DL (0.55-1.30); GLOMERULAR FILTRATION RATE > 60.0 (>60); GLUCOSE, FASTING 269 MG/DL (70-100); SODIUM LEVEL 140 MEQ/L (136-145)
[2022-01-03] MEDS: BENZONATATE 100MG CAPSULE PO PRN (17:25)
[2022-01-03] MEDS ORDERED: HumaLOG INSULIN (NovoLOG) PER UNIT SC SCH (21:00)
[2022-01-03] MEDS: METOCLOPRAMIDE 5 MG TAB PO PRN (21:00)
[2022-01-03] MEDS: cefTRIAXone SOD 1 GM in D5W MINI-BAG PLUS 50 ML IV SCH (21:00)
[2022-01-03] MEDS: REMDESIVIR 100 MG in NS 250 ML IV SCH (23:04)
[2022-01-03] MEDS: SODIUM CHLORIDE 0.9% INJ 10 ML SYR IV SCH (23:05)
[2022-01-04] VITALS (9 sets, daily range): BP systolic 98–146; BP diastolic 56–85
[2022-01-04 05:57] LABS: HEMATOCRIT 29.6 % (36.0-47.0); MEAN CORPUSCULAR HEMOGLOBIN 28.6 pg (27.0-33.0); MEAN CORPUSCULAR HGB CONC 33.8 g/dl (32.0-36.5); MEAN CORPUSCULAR VOLUME 84.6 fl (80.0-96.0); PLATELET COUNT, AUTOMATED 129 10^3/uL (150-450); WHITE BLOOD COUNT 3.8 10^3/uL (4.0-10.0)
[2022-01-04] MEDS: HumaLOG INSULIN (NovoLOG) PER UNIT SC SCH ×3 (06:20→21:47)
[2022-01-04] MEDS: KCL 40MEQ IN D5/0.45NS 1000ML 1,000 ML IV SCH (06:21)
[2022-01-04] MEDS: BENZONATATE 100MG CAPSULE PO PRN (06:21)
[2022-01-04] MEDS: ACETAMINOPHEN TAB 650MG DOSE (2X325MG) PO PRN ×2 (06:21→14:00)
[2022-01-04] MEDS: HEPARIN SOD (PORCINE) 5000UNITS/ML 1ML VIAL/SYRINGE SQ SCH ×3 (06:21→21:03)
[2022-01-04 06:30] LABS: BLOOD UREA NITROGEN 12 MG/DL (7-18); CALCIUM LEVEL 8.1 MG/DL (8.5-10.1); CARBON DIOXIDE LEVEL 20 MEQ/L (21-32); CHLORIDE LEVEL 113 MEQ/L (98-107); CREATININE FOR GFR 0.79 MG/DL (0.55-1.30); GLOMERULAR FILTRATION RATE > 60.0 (>60); GLUCOSE, FASTING 298 MG/DL (70-100); MAGNESIUM LEVEL 2.2 MG/DL (1.8-2.4); PHOSPHORUS LEVEL 1.3 MG/DL (2.5-4.9); POTASSIUM SERUM 4.3 MEQ/L (3.5-5.1); SODIUM LEVEL 141 MEQ/L (136-145)
[2022-01-04] MEDS: dexameTHASONE 20MG/5ML VIAL (J1100 PER 1MG) IV SCH (09:09)
[2022-01-04] MEDS: PANTOPRAZOLE 40MG VIAL (C9113 PER 1) IV SCH (09:09)
[2022-01-04] MEDS: DOXYCYCLINE HYCLATE 100 MG in D5W MINI-BAG PLUS 100 ML IV SCH (09:09)
[2022-01-04] MEDS ORDERED: D5W/0.45% SODIUM CHLORIDE 1,000 ML IV SCH (10:25)
[2022-01-04] MEDS ORDERED: POTASSIUM PHOSPHATE INJ 20 MMOL in D5W 250 ML IV ONE (11:00)
[2022-01-04] MEDS ORDERED: HumaLOG INSULIN (NovoLOG) PER UNIT SC STA (19:27)
[2022-01-04] MEDS: cefTRIAXone SOD 1 GM in D5W MINI-BAG PLUS 50 ML IV SCH (20:06)
[2022-01-04] MEDS: METOCLOPRAMIDE 5 MG TAB PO PRN (20:06)
[2022-01-04] MEDS ORDERED: NS 500 ML IV ONE (20:20)
[2022-01-04] MEDS: DOXYCYCLINE HYCLATE 100MG TABLET PO SCH (21:03)
[2022-01-04] MEDS ORDERED: NS 1,000 ML IV ONE (21:30)
[2022-01-04 22:45] LABS: VENOUS HCO3 16.3 MEQ/L (23.0-27.0); VENOUS O2 SATURATION 80.6 % (60.0-80.0); VENOUS PARTIAL PRESSURE CO2 33.2 mmHg (38.0-50.0); VENOUS PARTIAL PRESSURE O2 46.9 mmHg (30.0-50.0); VENOUS PH 7.308 UNITS (7.330-7.430); VENOUS STANDARD HCO3 16.9 MEQ/L; VENOUS TOTAL CO2 17.3 MEQ/L (24.0-28.0)
[2022-01-04] MEDS ORDERED: SODIUM CHLORIDE 0.9% INJ 10 ML SYR IV PRN (23:05)
[2022-01-04 23:08] LABS: ACETONE/KETONE 9.73 MG/DL (<2.81); CALCIUM LEVEL 8.3 MG/DL (8.5-10.1); CREATININE FOR GFR 1.34 MG/DL (0.55-1.30); GLOMERULAR FILTRATION RATE 48.2 (>60)
[2022-01-04] MEDS: REMDESIVIR 100 MG in NS 250 ML IV SCH (23:14)
[2022-01-05] MEDS ORDERED: LEVEMIR (INSULIN DETEMIR) 1 UNITS/0.01ML SC ONE
[2022-01-05] MEDS: SODIUM CHLORIDE 0.9% INJ 10 ML SYR IV SCH ×5 (00:28→22:45)
[2022-01-05] MEDS: NS 1,000 ML IV SCH ×2 (00:28→06:53)
[2022-01-05 05:26] VITALS: BP 142/89
[2022-01-05] MEDS: METOCLOPRAMIDE 5 MG TAB PO PRN ×2 (05:43→21:29)
[2022-01-05] MEDS: HEPARIN SOD (PORCINE) 5000UNITS/ML 1ML VIAL/SYRINGE SQ SCH ×3 (05:43→21:31)
[2022-01-05 05:52] LABS: BASO % 0.1 % (0.0-1.0); HEMATOCRIT 33.7 % (36.0-47.0); HEMOGLOBIN 11.6 g/dl (12.0-15.5); LYMPH # 2.2 10^3/uL (1.5-5.0); LYMPH % 30.6 % (24.0-44.0); MEAN CORPUSCULAR HEMOGLOBIN 29.3 pg (27.0-33.0); MEAN CORPUSCULAR HGB CONC 34.4 g/dl (32.0-36.5); MEAN CORPUSCULAR VOLUME 85.1 fl (80.0-96.0); MONO # 0.4 10^3/uL (0.0-0.8); MONO % 5.4 % (2.0-8.0); NEUTROPHILS # 4.6 10^3/uL (1.5-8.5); NEUTROPHILS % 63.5 % (36.0-66.0); PLATELET COUNT, AUTOMATED 191 10^3/uL (150-450); RED BLOOD COUNT 3.96 10^6/uL (4.00-5.40); WHITE BLOOD COUNT 7.3 10^3/uL (4.0-10.0)
[2022-01-05 06:27] LABS: ALBUMIN 2.4 GM/DL (3.2-5.2); ALT/SGPT 22 U/L (12-78); BILIRUBIN,TOTAL 0.2 MG/DL (0.2-1.0); BLOOD UREA NITROGEN 18 MG/DL (7-18); CALCIUM LEVEL 8.5 MG/DL (8.5-10.1); CARBON DIOXIDE LEVEL 24 MEQ/L (21-32); CHLORIDE LEVEL 112 MEQ/L (98-107); CREATININE FOR GFR 0.84 MG/DL (0.55-1.30); GLOMERULAR FILTRATION RATE > 60.0 (>60); GLUCOSE, FASTING 70 MG/DL (70-100); MAGNESIUM LEVEL 2.2 MG/DL (1.8-2.4); PHOSPHORUS LEVEL 2.3 MG/DL (2.5-4.9); POTASSIUM SERUM 3.9 MEQ/L (3.5-5.1); SODIUM LEVEL 141 MEQ/L (136-145); TOTAL PROTEIN 5.7 GM/DL (6.4-8.2)
[2022-01-05] MEDS: HumaLOG INSULIN (NovoLOG) PER UNIT SC SCH ×4 (07:30→21:00)
[2022-01-05] MEDS: DEXTROSE 50% 50 ML SYRINGE IV PRN (08:29)
[2022-01-05] MEDS: PANTOPRAZOLE 40MG VIAL (C9113 PER 1) IV SCH (08:30)
[2022-01-05] MEDS: DOXYCYCLINE HYCLATE 100MG TABLET PO SCH ×2 (08:30→21:29)
[2022-01-05 12:35] LABS: CLOSTRIDIUM DIFFICILE PCR NEGATIVE (NEGATIVE)
[2022-01-05 14:00] VITALS: BP 136/84
[2022-01-05] MEDS ORDERED: LEVEMIR (INSULIN DETEMIR) 1 UNITS/0.01ML SC SCH (21:00)
[2022-01-05] MEDS: CEFDINIR 300 MG CAP (OMNICEF) PO SCH (21:30)
[2022-01-05] MEDS: REMDESIVIR 100 MG in NS 250 ML IV SCH (21:31)
[2022-01-05 21:32] VITALS: BP 173/94
[2022-01-06 05:20] VITALS: BP 118/65
[2022-01-06] MEDS: DEXTROSE 50% 50 ML SYRINGE IV PRN (05:31)
[2022-01-06] MEDS: HEPARIN SOD (PORCINE) 5000UNITS/ML 1ML VIAL/SYRINGE SQ SCH ×3 (05:36→21:29)
[2022-01-06] MEDS: SODIUM CHLORIDE 0.9% INJ 10 ML SYR IV SCH ×3 (05:36→21:29)
[2022-01-06] MEDS: DOXYCYCLINE HYCLATE 100MG TABLET PO SCH ×2 (08:39→21:30)
[2022-01-06] MEDS: CEFDINIR 300 MG CAP (OMNICEF) PO SCH ×2 (08:39→21:30)
[2022-01-06] MEDS: HumaLOG INSULIN (NovoLOG) PER UNIT SC SCH ×4 (08:40→21:00)
[2022-01-06 08:41] LABS: HEMATOCRIT 33.1 % (36.0-47.0); HEMOGLOBIN 11.3 g/dl (12.0-15.5); MEAN CORPUSCULAR HGB CONC 34.1 g/dl (32.0-36.5); MEAN CORPUSCULAR VOLUME 85.1 fl (80.0-96.0); PLATELET COUNT, AUTOMATED 170 10^3/uL (150-450); RED BLOOD COUNT 3.89 10^6/uL (4.00-5.40); WHITE BLOOD COUNT 3.7 10^3/uL (4.0-10.0)
[2022-01-06 10:24] LABS: BEDSIDE GLUCOSE CONFIRMATION 59 MG/DL (LESS THAN 200); BLOOD UREA NITROGEN 18 MG/DL (7-18); CALCIUM LEVEL 8.5 MG/DL (8.5-10.1); CARBON DIOXIDE LEVEL 23 MEQ/L (21-32); CHLORIDE LEVEL 110 MEQ/L (98-107); CREATININE FOR GFR 0.71 MG/DL (0.55-1.30); GLOMERULAR FILTRATION RATE > 60.0 (>60); GLUCOSE, FASTING 59 MG/DL (70-100); MAGNESIUM LEVEL 2.1 MG/DL (1.8-2.4); PHOSPHORUS LEVEL 3.8 MG/DL (2.5-4.9); POTASSIUM SERUM 3.7 MEQ/L (3.5-5.1); SODIUM LEVEL 141 MEQ/L (136-145)
[2022-01-06 11:05] VITALS: BP 118/65
[2022-01-06 14:00] VITALS: BP 163/99
[2022-01-06] MEDS: METOCLOPRAMIDE 5 MG TAB PO PRN (15:13)
[2022-01-06] MEDS: ACETAMINOPHEN TAB 650MG DOSE (2X325MG) PO PRN ×2 (15:14→21:30)
[2022-01-06 19:23] VITALS: BP 135/92
[2022-01-06] MEDS: BENZONATATE 100MG CAPSULE PO PRN (19:30)
[2022-01-07] MEDS: METOCLOPRAMIDE 5 MG TAB PO PRN (06:21)
[2022-01-07] MEDS: ACETAMINOPHEN TAB 650MG DOSE (2X325MG) PO PRN (06:22)
[2022-01-07] MEDS: BENZONATATE 100MG CAPSULE PO PRN (06:22)
[2022-01-07] MEDS: HEPARIN SOD (PORCINE) 5000UNITS/ML 1ML VIAL/SYRINGE SQ SCH (06:23)
[2022-01-07] MEDS: SODIUM CHLORIDE 0.9% INJ 10 ML SYR IV SCH (06:23)
[2022-01-07 06:24] VITALS: BP 164/100
[2022-01-07] MEDS: HumaLOG INSULIN (NovoLOG) PER UNIT SC SCH (06:45)
[2022-01-07 08:45] VITALS: BP 164/100
[2022-01-07] MEDS: CEFDINIR 300 MG CAP (OMNICEF) PO SCH (08:58)
[2022-01-07] MEDS: DOXYCYCLINE HYCLATE 100MG TABLET PO SCH (08:58)
[2022-01-07] MEDS ORDERED: LEVEMIR (INSULIN DETEMIR) 1 UNITS/0.01ML SC SCH (09:00)
[2022-01-07 09:21] LABS: CREATININE FOR GFR 1.16 MG/DL (0.55-1.30); GLOMERULAR FILTRATION RATE 56.9 (>60); MAGNESIUM LEVEL 2.1 MG/DL (1.8-2.4); POTASSIUM SERUM 3.8 MEQ/L (3.5-5.1)
[2022-01-07 09:36] LABS: HEMATOCRIT 36.3 % (36.0-47.0); HEMOGLOBIN 12.5 g/dl (12.0-15.5); MEAN CORPUSCULAR HEMOGLOBIN 28.8 pg (27.0-33.0); MEAN CORPUSCULAR HGB CONC 34.4 g/dl (32.0-36.5); MEAN CORPUSCULAR VOLUME 83.6 fl (80.0-96.0); PLATELET COUNT, AUTOMATED 215 10^3/uL (150-450); RED BLOOD COUNT 4.34 10^6/uL (4.00-5.40); WHITE BLOOD COUNT 6.6 10^3/uL (4.0-10.0)
[2022-01-07] MEDS ORDERED: BENZ-18 PO (10:06)
[2022-01-07] MEDS ORDERED: METO5TAB2 PO (10:06)
[2022-01-07] MEDS ORDERED: CEFD300CAP PO (10:10)
[2022-01-07] MEDS ORDERED: DOXY100T PO (10:10)
== END 2022-01-07 12:40 | disposition home or self-care (01) | DRG 420 ==
LOC: M ED 14:02 → M ED INP 17:27 → M ICU 01-03 00:54 → M 4MAIN 01-04 13:24
PROVIDERS: ADMIT Internal Medicine; ATTEND Internal Medicine
DX: E11.10 Type 2 diabetes mellitus with ketoacidosis without coma (principal); U07.1 COVID-19; N17.9 Acute kidney failure, unspecified; Z93.0 Tracheostomy status; Z79.4 Long term (current) use of insulin; E11.65 Type 2 diabetes mellitus with hyperglycemia; Z79.899 Other long term (current) drug therapy

== ENCOUNTER 2022-03-24 12:01 | Inpatient (IN) | payer OTHER ==
[~2022-03-24] VITALS: Ht 162.6 cm; Wt 61.0 kg
[~2022-03-24 12:01] MED LIST changes: +BENZ-18 PO; +CEFD300CAP PO; +COMMENTS; +DOXY100T PO; +ERGO500029 PO; +METO5TAB2 PO
[2022-03-24] MEDS ORDERED: NS 1,000 ML IV ONE ×2 (12:20→17:10)
[2022-03-24] MEDS ORDERED: LIDOCAINE 1% MDV 20ML VIAL As Ordered ONE (15:23)
[2022-03-24 16:27] LABS: VENOUS BASE EXCESS -24.5 (-2.0-2.0); VENOUS HCO3 4.6 MEQ/L (23.0-27.0); VENOUS O2 SATURATION 87.4 % (60.0-80.0); VENOUS PARTIAL PRESSURE CO2 17.9 mmHg (38.0-50.0); VENOUS PARTIAL PRESSURE O2 60.8 mmHg (30.0-50.0); VENOUS PH 7.028 UNITS (7.330-7.430); VENOUS STANDARD HCO3 7.6 MEQ/L; VENOUS TOTAL CO2 5.2 MEQ/L (24.0-28.0)
[2022-03-24 16:40] LABS: BASO % 0.5 % (0.0-1.0); HEMATOCRIT 40.9 % (36.0-47.0); HEMOGLOBIN 13.7 g/dl (12.0-15.5); LYMPH # 0.8 10^3/uL (1.5-5.0); LYMPH % 9.2 % (24.0-44.0); MEAN CORPUSCULAR HEMOGLOBIN 30.3 pg (27.0-33.0); MEAN CORPUSCULAR HGB CONC 33.5 g/dl (32.0-36.5); MEAN CORPUSCULAR VOLUME 90.5 fl (80.0-96.0); MONO # 0.4 10^3/uL (0.0-0.8); MONO % 4.6 % (2.0-8.0); NEUTROPHILS # 7.1 10^3/uL (1.5-8.5); PLATELET COUNT, AUTOMATED 304 10^3/uL (150-450); RED BLOOD COUNT 4.52 10^6/uL (4.00-5.40); WHITE BLOOD COUNT 8.4 10^3/uL (4.0-10.0)
[2022-03-24 17:05] LABS: OSMOLALITY SERUM 342 MOSM/KG (275-295)
[2022-03-24] MEDS ORDERED: INSULIN IV RATE CHANGE DOCUMENTATION ML/HR XX SCH (17:15)
[2022-03-24] MEDS ORDERED: ONDANSETRON 4MG/2ML VIAL IV ONE (17:15)
[2022-03-24] MEDS ORDERED: HumuLIN R (REGULAR) INSULIN (NovoLIN R) **100U/ML** PER UNIT IV ONE (17:15)
[2022-03-24 17:16] LABS: ALBUMIN 3.5 GM/DL (3.2-5.2); ALT/SGPT 21 U/L (12-78); BILIRUBIN,DIRECT < 0.1 MG/DL (0.0-0.2); BILIRUBIN,TOTAL 0.7 MG/DL (0.2-1.0); BLOOD UREA NITROGEN 25 MG/DL (7-18); CALCIUM LEVEL 9.6 MG/DL (8.5-10.1); CARBON DIOXIDE LEVEL 6 MEQ/L (21-32); CHLORIDE LEVEL 107 MEQ/L (98-107); CREATININE FOR GFR 1.82 MG/DL (0.55-1.30); GLOMERULAR FILTRATION RATE 33.9 (>60); GLUCOSE, FASTING 569 MG/DL (70-100); LIPASE 91 U/L (73-393); POTASSIUM SERUM 5.1 MEQ/L (3.5-5.1); SODIUM LEVEL 135 MEQ/L (136-145); TOTAL PROTEIN 7.6 GM/DL (6.4-8.2)
[2022-03-24 17:23] LABS: RSV AMPLIFICATION NEGATIVE (NEGATIVE)
[2022-03-24 17:49] LABS: ACETONE/KETONE > 46.00 MG/DL (<2.81)
[2022-03-24 17:54] LABS: CK-MB VALUE MASS < 1.0 NG/ML (<3.6); CPK CREATINE PHOSPHOKINASE 48 U/L (26-192); MB/CK RELATIVE INDEX 2.08 (< OR =4)
[2022-03-24] MEDS: INSULIN REGULAR IN 0.9 % NACL 100 UNIT in IV 1 EA IV SCH ×4 (17:57→19:59)
[2022-03-24] MEDS ORDERED: KCL 20MEQ IN 0.45NS 1000ML 1,000 ML IV SCH (18:15)
[2022-03-24] MEDS ORDERED: MED NOTE (19:00)
[2022-03-24] MEDS ORDERED: INSULIN REGULAR IN 0.9 % NACL 100 UNIT in IV 1 EA IV SCH ×2 (19:00)
[2022-03-24] MEDS ORDERED: HOME MED LIST COMPLETE! XX SCH (19:00)
[2022-03-24 19:18] LABS: VENOUS BASE EXCESS -27.1 (-2.0-2.0); VENOUS HCO3 4.2 MEQ/L (23.0-27.0); VENOUS O2 SATURATION 93.5 % (60.0-80.0); VENOUS PARTIAL PRESSURE CO2 20.7 mmHg (38.0-50.0); VENOUS PARTIAL PRESSURE O2 81.7 mmHg (30.0-50.0); VENOUS PH 6.929 UNITS (7.330-7.430); VENOUS STANDARD HCO3 6.7 MEQ/L; VENOUS TOTAL CO2 4.9 MEQ/L (24.0-28.0)
[2022-03-24 19:19] LABS: HCG, SERUM QUALITATIVE NEGATIVE (NEGATIVE)
[2022-03-24 19:55] LABS: CALCIUM LEVEL 9.2 MG/DL (8.5-10.1); CREATININE FOR GFR 1.7 MG/DL (0.55-1.30); GLOMERULAR FILTRATION RATE 36.6 (>60); MAGNESIUM LEVEL 2.5 MG/DL (1.8-2.4); POTASSIUM SERUM 4.7 MEQ/L (3.5-5.1)
[2022-03-24] MEDS: PANTOPRAZOLE 40MG VIAL IV SCH (20:11)
[2022-03-24 20:42] LABS: VENOUS BASE EXCESS -23.7 (-2.0-2.0); VENOUS HCO3 5.2 MEQ/L (23.0-27.0); VENOUS O2 SATURATION 74.5 % (60.0-80.0); VENOUS PARTIAL PRESSURE CO2 19.6 mmHg (38.0-50.0); VENOUS PARTIAL PRESSURE O2 39.3 mmHg (30.0-50.0); VENOUS PH 7.044 UNITS (7.330-7.430); VENOUS TOTAL CO2 5.8 MEQ/L (24.0-28.0)
[2022-03-24 21:02] LABS: CALCIUM LEVEL 9.6 MG/DL (8.5-10.1); CREATININE FOR GFR 1.61 MG/DL (0.55-1.30); MAGNESIUM LEVEL 2.7 MG/DL (1.8-2.4); PHOSPHORUS LEVEL 2.9 MG/DL (2.5-4.9); POTASSIUM SERUM 4.4 MEQ/L (3.5-5.1)
[2022-03-24] MEDS: ONDANSETRON 4MG/2ML VIAL IV PRN (21:04)
[2022-03-24] MEDS: HEPARIN SOD (PORCINE) 5000UNITS/ML 1ML VIAL/SYRINGE SC SCH (21:09)
[2022-03-24 21:15] VITALS: BP 128/80
[2022-03-24] MEDS: INSULIN IV RATE CHANGE DOCUMENTATION ML/HR XX SCH ×2 (22:23→23:11)
[2022-03-24] MEDS: KCL 20MEQ IN D5/0.45NS 1000ML 1,000 ML IV SCH (23:43)
[2022-03-25] VITALS (8 sets, daily range): BP systolic 111–157; BP diastolic 65–88
[2022-03-25 00:29] LABS: VENOUS BASE EXCESS -20.4 (-2.0-2.0); VENOUS HCO3 7.4 MEQ/L (23.0-27.0); VENOUS O2 SATURATION 95.2 % (60.0-80.0); VENOUS PARTIAL PRESSURE CO2 23.8 mmHg (38.0-50.0); VENOUS PARTIAL PRESSURE O2 83.9 mmHg (30.0-50.0); VENOUS PH 7.111 UNITS (7.330-7.430); VENOUS STANDARD HCO3 9.6 MEQ/L; VENOUS TOTAL CO2 8.1 MEQ/L (24.0-28.0)
[2022-03-25 01:10] LABS: CALCIUM LEVEL 8.8 MG/DL (8.5-10.1); CREATININE FOR GFR 1.4 MG/DL (0.55-1.30); GLOMERULAR FILTRATION RATE 45.8 (>60); MAGNESIUM LEVEL 2.4 MG/DL (1.8-2.4); PHOSPHORUS LEVEL 1.3 MG/DL (2.5-4.9); POTASSIUM SERUM 4.2 MEQ/L (3.5-5.1)
[2022-03-25] MEDS: ONDANSETRON 4MG/2ML VIAL IV PRN ×2 (01:20→06:42)
[2022-03-25] MEDS: INSULIN IV RATE CHANGE DOCUMENTATION ML/HR XX SCH ×14 (01:22→18:57)
[2022-03-25] MEDS ORDERED: POTASSIUM PHOSPHATE INJ 30 MMOL in D5W 500 ML IV ONE (01:45)
[2022-03-25 03:35] LABS: VENOUS HCO3 10.8 MEQ/L (23.0-27.0); VENOUS O2 SATURATION 98.8 % (60.0-80.0); VENOUS PARTIAL PRESSURE CO2 28.8 mmHg (38.0-50.0); VENOUS PARTIAL PRESSURE O2 163.4 mmHg (30.0-50.0); VENOUS PH 7.192 UNITS (7.330-7.430); VENOUS STANDARD HCO3 12.4 MEQ/L; VENOUS TOTAL CO2 11.7 MEQ/L (24.0-28.0)
[2022-03-25 03:56] LABS: MAGNESIUM LEVEL 2.2 MG/DL (1.8-2.4)
[2022-03-25 04:14] LABS: CALCIUM LEVEL 8.6 MG/DL (8.5-10.1); CREATININE FOR GFR 1.47 MG/DL (0.55-1.30); GLOMERULAR FILTRATION RATE 43.3 (>60); PHOSPHORUS LEVEL 1.2 MG/DL (2.5-4.9); POTASSIUM SERUM 4.1 MEQ/L (3.5-5.1)
[2022-03-25] MEDS: SODIUM CHLORIDE 0.9% INJ 10 ML SYR IV SCH ×2 (06:19→18:03)
[2022-03-25] MEDS: HEPARIN SOD (PORCINE) 5000UNITS/ML 1ML VIAL/SYRINGE SC SCH ×3 (06:19→21:17)
[2022-03-25 06:30] LABS: VENOUS BASE EXCESS -14.3 (-2.0-2.0); VENOUS HCO3 12.5 MEQ/L (23.0-27.0); VENOUS O2 SATURATION 92.3 % (60.0-80.0); VENOUS PARTIAL PRESSURE CO2 32.4 mmHg (38.0-50.0); VENOUS PARTIAL PRESSURE O2 64.1 mmHg (30.0-50.0); VENOUS PH 7.204 UNITS (7.330-7.430); VENOUS STANDARD HCO3 13.4 MEQ/L; VENOUS TOTAL CO2 13.5 MEQ/L (24.0-28.0)
[2022-03-25 06:38] LABS: BASO % 0.1 % (0.0-1.0); HEMATOCRIT 31.3 % (36.0-47.0); LYMPH % 12.2 % (24.0-44.0); MEAN CORPUSCULAR HEMOGLOBIN 30.2 pg (27.0-33.0); MEAN CORPUSCULAR HGB CONC 34.5 g/dl (32.0-36.5); MEAN CORPUSCULAR VOLUME 87.4 fl (80.0-96.0); MONO # 1.1 10^3/uL (0.0-0.8); MONO % 13.2 % (2.0-8.0); NEUTROPHILS # 5.9 10^3/uL (1.5-8.5); NEUTROPHILS % 74.1 % (36.0-66.0); PLATELET COUNT, AUTOMATED 215 10^3/uL (150-450); RED BLOOD COUNT 3.58 10^6/uL (4.00-5.40); WHITE BLOOD COUNT 7.9 10^3/uL (4.0-10.0)
[2022-03-25] MEDS: KCL 20MEQ IN D5/0.45NS 1000ML 1,000 ML IV SCH ×4 (06:42→22:17)
[2022-03-25 06:44] LABS: HEMOGLOBIN 10.8 g/dl (12.0-15.5)
[2022-03-25 06:58] LABS: CALCIUM LEVEL 8.5 MG/DL (8.5-10.1); CREATININE FOR GFR 1.51 MG/DL (0.55-1.30); PHOSPHORUS LEVEL 2.3 MG/DL (2.5-4.9); POTASSIUM SERUM 4.1 MEQ/L (3.5-5.1)
[2022-03-25] MEDS ORDERED: METOCLOPRAMIDE INJ 10MG/2ML VIAL (J2765 PER 1) IV PRN (08:50)
[2022-03-25 10:24] LABS: VENOUS BASE EXCESS -11.9 (-2.0-2.0); VENOUS HCO3 14.7 MEQ/L (23.0-27.0); VENOUS PARTIAL PRESSURE CO2 35.5 mmHg (38.0-50.0); VENOUS PARTIAL PRESSURE O2 95.1 mmHg (30.0-50.0); VENOUS PH 7.234 UNITS (7.330-7.430); VENOUS STANDARD HCO3 15.1 MEQ/L; VENOUS TOTAL CO2 15.8 MEQ/L (24.0-28.0)
[2022-03-25 10:44] LABS: MAGNESIUM LEVEL 1.9 MG/DL (1.8-2.4)
[2022-03-25 10:57] LABS: CALCIUM LEVEL 8.5 MG/DL (8.5-10.1); CREATININE FOR GFR 1.38 MG/DL (0.55-1.30); GLOMERULAR FILTRATION RATE 46.6 (>60); PHOSPHORUS LEVEL 1.8 MG/DL (2.5-4.9); POTASSIUM SERUM 3.7 MEQ/L (3.5-5.1)
[2022-03-25] MEDS ORDERED: ONDANSETRON 4MG/2ML VIAL IV PRN (12:00)
[2022-03-25] MEDS ORDERED: POTASSIUM PHOSPHATE INJ 20 MMOL in D5W 250 ML IV ONE (13:00)
[2022-03-25 14:10] LABS: VENOUS BASE EXCESS -10.2 (-2.0-2.0); VENOUS HCO3 16.1 MEQ/L (23.0-27.0); VENOUS O2 SATURATION 97.3 % (60.0-80.0); VENOUS PARTIAL PRESSURE CO2 37.2 mmHg (38.0-50.0); VENOUS PARTIAL PRESSURE O2 96.7 mmHg (30.0-50.0); VENOUS PH 7.255 UNITS (7.330-7.430); VENOUS STANDARD HCO3 16.3 MEQ/L; VENOUS TOTAL CO2 17.3 MEQ/L (24.0-28.0)
[2022-03-25 14:34] LABS: CALCIUM LEVEL 8.7 MG/DL (8.5-10.1); CREATININE FOR GFR 1.16 MG/DL (0.55-1.30); GLOMERULAR FILTRATION RATE 56.9 (>60); MAGNESIUM LEVEL 1.9 MG/DL (1.8-2.4); POTASSIUM SERUM 3.9 MEQ/L (3.5-5.1)
[2022-03-25 14:54] LABS: PHOSPHORUS LEVEL 1.9 MG/DL (2.5-4.9)
[2022-03-25 18:15] LABS: VENOUS BASE EXCESS -9.9 (-2.0-2.0); VENOUS HCO3 16.5 MEQ/L (23.0-27.0); VENOUS O2 SATURATION 92.9 % (60.0-80.0); VENOUS PARTIAL PRESSURE CO2 38.2 mmHg (38.0-50.0); VENOUS PARTIAL PRESSURE O2 63.8 mmHg (30.0-50.0); VENOUS PH 7.254 UNITS (7.330-7.430); VENOUS STANDARD HCO3 16.5 MEQ/L; VENOUS TOTAL CO2 17.7 MEQ/L (24.0-28.0)
[2022-03-25] MEDS ORDERED: DEXTROSE 50% 50 ML SYRINGE IV PRN (18:30)
[2022-03-25] MEDS ORDERED: GLUCAGON INJ 1MG VIAL SC PRN (18:30)
[2022-03-25] MEDS ORDERED: GLUCOSE 4GM CHEW TABLET PO PRN (18:30)
[2022-03-25 18:51] LABS: CALCIUM LEVEL 8.1 MG/DL (8.5-10.1); CREATININE FOR GFR 1.16 MG/DL (0.55-1.30); GLOMERULAR FILTRATION RATE 56.9 (>60); MAGNESIUM LEVEL 1.6 MG/DL (1.8-2.4); POTASSIUM SERUM 3.8 MEQ/L (3.5-5.1)
[2022-03-25 19:48] LABS: PHOSPHORUS LEVEL 2.7 MG/DL (2.5-4.9)
[2022-03-25] MEDS ORDERED: HumaLOG INSULIN (NovoLOG) PER UNIT SC SCH (21:00)
[2022-03-25] MEDS ORDERED: LEVEMIR (INSULIN DETEMIR) 1 UNITS/0.01ML SC ONE (21:00)
[2022-03-25] MEDS: PANTOPRAZOLE 40MG VIAL IV SCH (22:16)
[2022-03-25 22:39] LABS: VENOUS BASE EXCESS -11.2 (-2.0-2.0); VENOUS HCO3 14.9 MEQ/L (23.0-27.0); VENOUS O2 SATURATION 88.3 % (60.0-80.0); VENOUS PARTIAL PRESSURE CO2 33.9 mmHg (38.0-50.0); VENOUS PARTIAL PRESSURE O2 55.1 mmHg (30.0-50.0); VENOUS STANDARD HCO3 15.4 MEQ/L; VENOUS TOTAL CO2 15.9 MEQ/L (24.0-28.0)
[2022-03-25 23:14] LABS: OSMOLALITY SERUM 291 MOSM/KG (275-295)
[2022-03-25 23:15] LABS: BLOOD UREA NITROGEN 9 MG/DL (7-18); CALCIUM LEVEL 8.3 MG/DL (8.5-10.1); CARBON DIOXIDE LEVEL 18 MEQ/L (21-32); CHLORIDE LEVEL 119 MEQ/L (98-107); CREATININE FOR GFR 1.09 MG/DL (0.55-1.30); GLOMERULAR FILTRATION RATE > 60.0 (>60); GLUCOSE, FASTING 161 MG/DL (70-100); MAGNESIUM LEVEL 1.7 MG/DL (1.8-2.4); PHOSPHORUS LEVEL 1.6 MG/DL (2.5-4.9); POTASSIUM SERUM 3.5 MEQ/L (3.5-5.1); SODIUM LEVEL 144 MEQ/L (136-145)
[2022-03-26] VITALS: BP 103/57
[2022-03-26 01:00] VITALS: BP 103/57
[2022-03-26] MEDS ORDERED: MAG SULF 1GM/100ML (MAG RUN) 1 GM in IV 1 EA IV ONE (01:10)
[2022-03-26 04:00] VITALS: BP 106/63
[2022-03-26] MEDS: HEPARIN SOD (PORCINE) 5000UNITS/ML 1ML VIAL/SYRINGE SC SCH ×2 (05:34→14:00)
[2022-03-26] MEDS: SODIUM CHLORIDE 0.9% INJ 10 ML SYR IV SCH (05:35)
[2022-03-26 06:00] LABS: BASO % 0.4 % (0.0-1.0); HEMATOCRIT 27.4 % (36.0-47.0); HEMOGLOBIN 9.5 g/dl (12.0-15.5); LYMPH # 1.8 10^3/uL (1.5-5.0); LYMPH % 35.6 % (24.0-44.0); MEAN CORPUSCULAR HEMOGLOBIN 30.4 pg (27.0-33.0); MEAN CORPUSCULAR HGB CONC 34.7 g/dl (32.0-36.5); MEAN CORPUSCULAR VOLUME 87.5 fl (80.0-96.0); MONO # 0.5 10^3/uL (0.0-0.8); MONO % 10.3 % (2.0-8.0); NEUTROPHILS # 2.7 10^3/uL (1.5-8.5); NEUTROPHILS % 53.3 % (36.0-66.0); PLATELET COUNT, AUTOMATED 134 10^3/uL (150-450); RED BLOOD COUNT 3.13 10^6/uL (4.00-5.40)
[2022-03-26 06:50] LABS: BLOOD UREA NITROGEN 7 MG/DL (7-18); CALCIUM LEVEL 8.3 MG/DL (8.5-10.1); CARBON DIOXIDE LEVEL 21 MEQ/L (21-32); CHLORIDE LEVEL 119 MEQ/L (98-107); CREATININE FOR GFR 0.89 MG/DL (0.55-1.30); GLOMERULAR FILTRATION RATE > 60.0 (>60); GLUCOSE, FASTING 37 MG/DL (70-100); MAGNESIUM LEVEL 2.4 MG/DL (1.8-2.4); PHOSPHORUS LEVEL 1.5 MG/DL (2.5-4.9); POTASSIUM SERUM 3.1 MEQ/L (3.5-5.1); SODIUM LEVEL 145 MEQ/L (136-145)
[2022-03-26] MEDS: HumaLOG INSULIN (NovoLOG) PER UNIT SC SCH ×2 (07:30→13:01)
[2022-03-26] MEDS ORDERED: K-PHOS NEUTRAL 250MG TABLET (SOD.PHOSPHATE/POT.PHOSPHATE) PO SCH (09:00)
[2022-03-26 12:01] VITALS: BP 106/69
[2022-03-26] MEDS ORDERED: ONDA-83 PO (14:30)
[2022-03-26 15:26] VITALS: BP 124/84
== END 2022-03-26 15:57 | disposition home or self-care (01) | DRG 420 ==
LOC: M ED 12:01 → M ED INP 17:40 → ENRESERV 19:31 → M ICU 20:38
PROVIDERS: ADMIT Family Medicine; ATTEND Family Medicine
PROC: 05HB33Z Insertion of Infusion Device into Right Basilic Vein, Percutaneous Approach (ICD-10-PCS; principal; 2022-03-24 15:30)
DX: E10.10 Type 1 diabetes mellitus with ketoacidosis without coma (principal); N17.9 Acute kidney failure, unspecified; F41.9 Anxiety disorder, unspecified; F32.A Depression, unspecified; Z79.4 Long term (current) use of insulin; E86.0 Dehydration; E87.1 Hypo-osmolality and hyponatremia; R00.0 Tachycardia, unspecified

== ENCOUNTER 2022-04-23 10:57 | Inpatient (IN) | payer OTHER ==
[~2022-04-23] VITALS: Ht 162.6 cm; Wt 61.8 kg
[2022-04-23] MEDS: PANTOPRAZOLE 40MG VIAL IV SCH (09:00)
[~2022-04-23 10:57] MED LIST changes: +MED NOTE
[2022-04-23] MEDS ORDERED: ONDANSETRON 4MG/2ML VIAL IV ONE ×2 (11:15→19:00)
[2022-04-23] MEDS ORDERED: NS 1,000 ML IV ONE ×4 (11:15→14:45)
[2022-04-23 11:38] LABS: VENOUS BASE EXCESS -19.4 (-2.0-2.0); VENOUS HCO3 8.6 MEQ/L (23.0-27.0); VENOUS O2 SATURATION 74.8 % (60.0-80.0); VENOUS PARTIAL PRESSURE CO2 27.5 mmHg (38.0-50.0); VENOUS PARTIAL PRESSURE O2 44.1 mmHg (30.0-50.0); VENOUS PH 7.112 UNITS (7.330-7.430); VENOUS STANDARD HCO3 10.2 MEQ/L; VENOUS TOTAL CO2 9.4 MEQ/L (24.0-28.0)
[2022-04-23 11:43] LABS: BASO % 0.5 % (0.0-1.0); HEMATOCRIT 41.7 % (36.0-47.0); LYMPH # 0.9 10^3/uL (1.5-5.0); LYMPH % 16.9 % (24.0-44.0); MEAN CORPUSCULAR HEMOGLOBIN 29.9 pg (27.0-33.0); MEAN CORPUSCULAR HGB CONC 33.6 g/dl (32.0-36.5); MEAN CORPUSCULAR VOLUME 88.9 fl (80.0-96.0); MONO # 0.3 10^3/uL (0.0-0.8); MONO % 4.6 % (2.0-8.0); NEUTROPHILS # 4.3 10^3/uL (1.5-8.5); NEUTROPHILS % 77.5 % (36.0-66.0); PLATELET COUNT, AUTOMATED 284 10^3/uL (150-450); RED BLOOD COUNT 4.69 10^6/uL (4.00-5.40); WHITE BLOOD COUNT 5.5 10^3/uL (4.0-10.0)
[2022-04-23] MEDS ORDERED: ONDANSETRON 4MG ORAL DISINTEGRATING TAB PO ONE (12:10)
[2022-04-23 12:11] LABS: HEMOGLOBIN A1c 10.8 %
[2022-04-23 12:14] LABS: ACETONE/KETONE > 46.00 MG/DL (<2.81); BLOOD UREA NITROGEN 20 MG/DL (7-18); CALCIUM LEVEL 9.6 MG/DL (8.5-10.1); CARBON DIOXIDE LEVEL 11 MEQ/L (21-32); CHLORIDE LEVEL 103 MEQ/L (98-107); CREATININE FOR GFR 1.58 MG/DL (0.55-1.30); GLOMERULAR FILTRATION RATE 39.9 (>60); GLUCOSE, FASTING 376 MG/DL (70-100); POTASSIUM SERUM 5.1 MEQ/L (3.5-5.1); SODIUM LEVEL 134 MEQ/L (136-145)
[2022-04-23] MEDS ORDERED: INSULIN REGULAR IN 0.9 % NACL 100 UNIT in IV 1 EA IV SCH ×2 (13:35)
[2022-04-23] MEDS ORDERED: HumuLIN R (REGULAR) INSULIN (NovoLIN R) **100U/ML** PER UNIT IV ONE (13:35)
[2022-04-23] MEDS ORDERED: METOCLOPRAMIDE INJ 10MG/2ML VIAL (J2765 PER 1) IV ONE (13:40)
[2022-04-23] MEDS ORDERED: INSULIN IV RATE CHANGE DOCUMENTATION ML/HR XX SCH (13:45)
[2022-04-23] MEDS: INSULIN REGULAR IN 0.9 % NACL 100 UNIT in IV 1 EA IV SCH ×2 (14:04)
[2022-04-23 14:53] LABS: RSV AMPLIFICATION NEGATIVE (NEGATIVE)
[2022-04-23] MEDS ORDERED: ENOXAPARIN 40MG/0.4ML SYRINGE (J1650 PER 10MG) SC ONE (15:00)
[2022-04-23] MEDS: NS 1,000 ML IV SCH ×2 (15:00→17:15)
[2022-04-23] MEDS: INSULIN IV RATE CHANGE DOCUMENTATION ML/HR XX SCH ×6 (15:19→23:12)
[2022-04-23] MEDS ORDERED: KETOROLAC 30 MG/ML 1ML VIAL IV ONE (15:30)
[2022-04-23 15:32] LABS: AMORPHOUS SEDIMENT SMALL (NEGATIVE); APPEARANCE, URINE HAZY (CLEAR); BACTERIA, URINE AUTO NEGATIVE (NEGATIVE); BILIRUBIN, URINE AUTO NEGATIVE (NEGATIVE); BLOOD, URINE BLOOD 3+ (NEGATIVE); COLOR, URINE YELLOW (YELLOW); GLUCOSE, URINE (UA) AUTO 3+ mg/dL (NEGATIVE); KETONE, URINE AUTO 2+ mg/dL (NEGATIVE); LEUKOCYTE ESTERASE, URINE AUTO NEGATIVE (NEGATIVE); MUCUS, URINE SMALL (NEGATIVE); NITRITE, URINE AUTO NEGATIVE (NEGATIVE); PROTEIN, URINE AUTO 3+ mg/dL (NEGATIVE); RBC, URINE AUTO 1 /HPF (0-3); SPECIFIC GRAVITY URINE AUTO 1.022 (1.002-1.035); SQUAMOUS EPITHELIAL CELL UR AU 3 /HPF (0-6); UROBILINOGEN, URINE AUTO 0.2 mg/dL (0.0-2.0); WBC, URINE AUTO 2 /HPF (0-3)
[2022-04-23] MEDS ORDERED: MED REC COMMENT (15:34)
[2022-04-23 15:35] LABS: VENOUS HCO3 5.6 MEQ/L (23.0-27.0); VENOUS O2 SATURATION 98.5 % (60.0-80.0); VENOUS PARTIAL PRESSURE O2 149.9 mmHg (30.0-50.0); VENOUS PH 7.109 UNITS (7.330-7.430); VENOUS STANDARD HCO3 8.6 MEQ/L; VENOUS TOTAL CO2 6.1 MEQ/L (24.0-28.0)
[2022-04-23] MEDS ORDERED: HOME MED LIST COMPLETE! XX SCH (15:35)
[2022-04-23 16:05] LABS: HEMOGLOBIN A1c 10.5 %
[2022-04-23 16:05] LABS: OSMOLALITY SERUM 314 MOSM/KG (275-295)
[2022-04-23 16:06] LABS: C REACTIVE PROTEIN QUANTITATIV < 0.30 MG/DL (0.00-0.30)
[2022-04-23] MEDS ORDERED: LIDOCAINE 1% MDV 20ML VIAL As Ordered ONE (16:08)
[2022-04-23 16:38] LABS: HCG, SERUM QUALITATIVE NEGATIVE (NEGATIVE)
[2022-04-23 17:00] VITALS: BP 147/92
[2022-04-23] MEDS ORDERED: NS 1,000 ML IV SCH (17:00)
[2022-04-23 17:27] LABS: ERYTHROCYTE SEDIMENTATION RATE 60 mm/hr (0-20)
[2022-04-23 17:30] VITALS: BP 154/98
[2022-04-23] MEDS ORDERED: D5W/0.45% SODIUM CHLORIDE 1,000 ML IV SCH ×2 (18:25→19:00)
[2022-04-23] MEDS: SODIUM CHLORIDE 0.9% INJ 10 ML SYR IV SCH (18:35)
[2022-04-23 19:00] VITALS: BP 128/79
[2022-04-23 20:00] VITALS: BP 113/64
[2022-04-23 20:07] LABS: CALCIUM LEVEL 8.8 MG/DL (8.5-10.1); CREATININE FOR GFR 1.25 MG/DL (0.55-1.30); GLOMERULAR FILTRATION RATE 52.2 (>60); PHOSPHORUS LEVEL 2.1 MG/DL (2.5-4.9); POTASSIUM SERUM 3.8 MEQ/L (3.5-5.1)
[2022-04-23] MEDS: KCL 20MEQ IN D5/0.45NS 1000ML 1,000 ML IV SCH (21:05)
[2022-04-23] MEDS: ONDANSETRON 4MG/2ML VIAL IV PRN (21:10)
[2022-04-23 21:45] VITALS: BP 160/81
[2022-04-23 22:00] VITALS: BP 141/82
[2022-04-23] MEDS ORDERED: POTASSIUM PHOSPHATE INJ 15 MMOL in D5W 250 ML IV ONE (22:00)
[2022-04-24] VITALS (12 sets, daily range): BP systolic 114–169; BP diastolic 71–101
[2022-04-24] MEDS: INSULIN IV RATE CHANGE DOCUMENTATION ML/HR XX SCH ×17 (00:07→22:12)
[2022-04-24 02:01] LABS: VENOUS HCO3 15.5 MEQ/L (23.0-27.0); VENOUS O2 SATURATION 96.6 % (60.0-80.0); VENOUS PARTIAL PRESSURE O2 90.2 mmHg (30.0-50.0); VENOUS STANDARD HCO3 15.7 MEQ/L; VENOUS TOTAL CO2 16.6 MEQ/L (24.0-28.0)
[2022-04-24 02:27] LABS: CALCIUM LEVEL 8.6 MG/DL (8.5-10.1); CREATININE FOR GFR 1.26 MG/DL (0.55-1.30); GLOMERULAR FILTRATION RATE 51.7 (>60); PHOSPHORUS LEVEL 2.5 MG/DL (2.5-4.9); POTASSIUM SERUM 3.9 MEQ/L (3.5-5.1)
[2022-04-24] MEDS ORDERED: KETOROLAC 30 MG/ML 1ML VIAL IV ONE (02:30)
[2022-04-24] MEDS: ONDANSETRON 4MG/2ML VIAL IV PRN (02:40)
[2022-04-24] MEDS: KCL 20MEQ IN D5/0.45NS 1000ML 1,000 ML IV SCH ×3 (04:15→22:07)
[2022-04-24 06:00] LABS: VENOUS BASE EXCESS -10.4 (-2.0-2.0); VENOUS HCO3 15.2 MEQ/L (23.0-27.0); VENOUS O2 SATURATION 98.6 % (60.0-80.0); VENOUS PARTIAL PRESSURE CO2 32.8 mmHg (38.0-50.0); VENOUS PARTIAL PRESSURE O2 127.9 mmHg (30.0-50.0); VENOUS PH 7.285 UNITS (7.330-7.430); VENOUS STANDARD HCO3 16.2 MEQ/L; VENOUS TOTAL CO2 16.2 MEQ/L (24.0-28.0)
[2022-04-24 06:15] LABS: BASO % 0.4 % (0.0-1.0); HEMATOCRIT 29.4 % (36.0-47.0); LYMPH # 1.2 10^3/uL (1.5-5.0); LYMPH % 25.5 % (24.0-44.0); MEAN CORPUSCULAR HEMOGLOBIN 30.4 pg (27.0-33.0); MEAN CORPUSCULAR VOLUME 89.4 fl (80.0-96.0); MONO # 0.4 10^3/uL (0.0-0.8); MONO % 8.2 % (2.0-8.0); NEUTROPHILS # 3.1 10^3/uL (1.5-8.5); NEUTROPHILS % 65.5 % (36.0-66.0); RED BLOOD COUNT 3.29 10^6/uL (4.00-5.40); WHITE BLOOD COUNT 4.8 10^3/uL (4.0-10.0)
[2022-04-24 06:18] LABS: PLATELET COUNT, AUTOMATED 173 10^3/uL (150-450)
[2022-04-24 06:30] LABS: CALCIUM LEVEL 8.4 MG/DL (8.5-10.1); CREATININE FOR GFR 1.2 MG/DL (0.55-1.30); GLOMERULAR FILTRATION RATE 54.7 (>60); MAGNESIUM LEVEL 1.8 MG/DL (1.8-2.4); PHOSPHORUS LEVEL 2.2 MG/DL (2.5-4.9); POTASSIUM SERUM 3.8 MEQ/L (3.5-5.1)
[2022-04-24] MEDS ORDERED: NS 1,000 ML IV ONE (08:30)
[2022-04-24] MEDS: ENOXAPARIN 40MG/0.4ML SYRINGE (J1650 PER 10MG) SC SCH (09:03)
[2022-04-24] MEDS: PANTOPRAZOLE 40MG VIAL IV SCH (09:03)
[2022-04-24 10:35] LABS: BLOOD UREA NITROGEN 12 MG/DL (7-18); CALCIUM LEVEL 8.5 MG/DL (8.5-10.1); CARBON DIOXIDE LEVEL 14 MEQ/L (21-32); CHLORIDE LEVEL 119 MEQ/L (98-107); CREATININE FOR GFR 1.09 MG/DL (0.55-1.30); GLOMERULAR FILTRATION RATE > 60.0 (>60); GLUCOSE, FASTING 107 MG/DL (70-100); POTASSIUM SERUM 3.6 MEQ/L (3.5-5.1); SODIUM LEVEL 145 MEQ/L (136-145)
[2022-04-24 11:22] LABS: ACETONE/KETONE 16.28 MG/DL (<2.81)
[2022-04-24] MEDS ORDERED: ACETAMINOPHEN TAB 650MG DOSE (2X325MG) PO PRN (11:55)
[2022-04-24 12:10] LABS: MAGNESIUM LEVEL 1.7 MG/DL (1.8-2.4)
[2022-04-24] MEDS: INSULIN REGULAR IN 0.9 % NACL 100 UNIT in IV 1 EA IV SCH ×2 (13:38)
[2022-04-24 13:52] LABS: VENOUS BASE EXCESS -12.5 (-2.0-2.0); VENOUS HCO3 14.8 MEQ/L (23.0-27.0); VENOUS O2 SATURATION 98.3 % (60.0-80.0); VENOUS PARTIAL PRESSURE CO2 39.1 mmHg (38.0-50.0); VENOUS PARTIAL PRESSURE O2 132.2 mmHg (30.0-50.0); VENOUS PH 7.197 UNITS (7.330-7.430); VENOUS STANDARD HCO3 14.7 MEQ/L
[2022-04-24 14:31] LABS: ALBUMIN 2.4 GM/DL (3.2-5.2); BILIRUBIN,TOTAL 0.4 MG/DL (0.2-1.0); CALCIUM LEVEL 7.8 MG/DL (8.5-10.1); CREATININE FOR GFR 1.16 MG/DL (0.55-1.30); GLOMERULAR FILTRATION RATE 56.9 (>60); PHOSPHORUS LEVEL 1.4 MG/DL (2.5-4.9); POTASSIUM SERUM 3.7 MEQ/L (3.5-5.1); TOTAL PROTEIN 5.5 GM/DL (6.4-8.2)
[2022-04-24] MEDS: NEUTRA-PHOS 1.5 GM PACKET PO SCH ×2 (15:18→22:07)
[2022-04-24] MEDS ORDERED: POTASSIUM PHOSPHATE INJ 20 MMOL in D5W 250 ML IV ONE (18:00)
[2022-04-24 18:25] LABS: BLOOD UREA NITROGEN 8 MG/DL (7-18); CALCIUM LEVEL 8.4 MG/DL (8.5-10.1); CARBON DIOXIDE LEVEL 15 MEQ/L (21-32); CHLORIDE LEVEL 116 MEQ/L (98-107); CREATININE FOR GFR 0.99 MG/DL (0.55-1.30); GLOMERULAR FILTRATION RATE > 60.0 (>60); GLUCOSE, FASTING 139 MG/DL (70-100); POTASSIUM SERUM 3.6 MEQ/L (3.5-5.1); SODIUM LEVEL 141 MEQ/L (136-145)
[2022-04-24] MEDS: SODIUM CHLORIDE 0.9% INJ 10 ML SYR IV SCH (18:35)
[2022-04-24] MEDS ORDERED: MAG SULF 1GM/100ML (MAG RUN) 1 GM in IV 1 EA IV ONE (19:30)
[2022-04-24 21:43] LABS: VENOUS BASE EXCESS -9.1 (-2.0-2.0); VENOUS HCO3 16.2 MEQ/L (23.0-27.0); VENOUS O2 SATURATION 88.8 % (60.0-80.0); VENOUS PARTIAL PRESSURE CO2 32.7 mmHg (38.0-50.0); VENOUS PARTIAL PRESSURE O2 53.9 mmHg (30.0-50.0); VENOUS PH 7.312 UNITS (7.330-7.430); VENOUS TOTAL CO2 17.2 MEQ/L (24.0-28.0)
[2022-04-24 22:13] LABS: BLOOD UREA NITROGEN 7 MG/DL (7-18); CALCIUM LEVEL 7.7 MG/DL (8.5-10.1); CARBON DIOXIDE LEVEL 18 MEQ/L (21-32); CHLORIDE LEVEL 116 MEQ/L (98-107); CREATININE FOR GFR 0.98 MG/DL (0.55-1.30); GLOMERULAR FILTRATION RATE > 60.0 (>60); GLUCOSE, FASTING 190 MG/DL (70-100); MAGNESIUM LEVEL 1.9 MG/DL (1.8-2.4); POTASSIUM SERUM 3.8 MEQ/L (3.5-5.1); SODIUM LEVEL 142 MEQ/L (136-145)
[2022-04-25] VITALS (9 sets, daily range): BP systolic 116–143; BP diastolic 78–100
[2022-04-25] MEDS: INSULIN IV RATE CHANGE DOCUMENTATION ML/HR XX SCH ×8 (00:18→07:56)
[2022-04-25] MEDS: KCL 20MEQ IN D5/0.45NS 1000ML 1,000 ML IV SCH ×2 (03:20→03:29)
[2022-04-25 04:15] LABS: BLOOD UREA NITROGEN 5 MG/DL (7-18); CALCIUM LEVEL 8.1 MG/DL (8.5-10.1); CARBON DIOXIDE LEVEL 19 MEQ/L (21-32); CHLORIDE LEVEL 118 MEQ/L (98-107); CREATININE FOR GFR 0.85 MG/DL (0.55-1.30); GLOMERULAR FILTRATION RATE > 60.0 (>60); GLUCOSE, FASTING 153 MG/DL (70-100); POTASSIUM SERUM 3.2 MEQ/L (3.5-5.1); SODIUM LEVEL 144 MEQ/L (136-145)
[2022-04-25] MEDS: KCL 40MEQ IN D5/0.45NS 1000ML 1,000 ML IV SCH ×4 (05:20→21:23)
[2022-04-25 06:58] LABS: VENOUS HCO3 17.3 MEQ/L (23.0-27.0); VENOUS O2 SATURATION 99.1 % (60.0-80.0); VENOUS PARTIAL PRESSURE O2 173.1 mmHg (30.0-50.0); VENOUS PH 7.313 UNITS (7.330-7.430); VENOUS TOTAL CO2 18.4 MEQ/L (24.0-28.0)
[2022-04-25 07:10] LABS: BASO % 0.8 % (0.0-1.0); EOS % 0.8 % (0.0-3.0); HEMATOCRIT 30.6 % (36.0-47.0); HEMOGLOBIN 10.3 g/dl (12.0-15.5); LYMPH # 1.2 10^3/uL (1.5-5.0); LYMPH % 47.9 % (24.0-44.0); MEAN CORPUSCULAR HEMOGLOBIN 29.2 pg (27.0-33.0); MEAN CORPUSCULAR HGB CONC 33.7 g/dl (32.0-36.5); MEAN CORPUSCULAR VOLUME 86.7 fl (80.0-96.0); MONO # 0.2 10^3/uL (0.0-0.8); MONO % 9.2 % (2.0-8.0); NEUTROPHILS % 40.9 % (36.0-66.0); PLATELET COUNT, AUTOMATED 139 10^3/uL (150-450); RED BLOOD COUNT 3.53 10^6/uL (4.00-5.40); WHITE BLOOD COUNT 2.4 10^3/uL (4.0-10.0)
[2022-04-25 07:33] LABS: BLOOD UREA NITROGEN 4 MG/DL (7-18); CALCIUM LEVEL 8.8 MG/DL (8.5-10.1); CARBON DIOXIDE LEVEL 17 MEQ/L (21-32); CHLORIDE LEVEL 119 MEQ/L (98-107); CREATININE FOR GFR 0.83 MG/DL (0.55-1.30); GLOMERULAR FILTRATION RATE > 60.0 (>60); GLUCOSE, FASTING 132 MG/DL (70-100); POTASSIUM SERUM 3.9 MEQ/L (3.5-5.1); SODIUM LEVEL 143 MEQ/L (136-145)
[2022-04-25] MEDS: PANTOPRAZOLE 40MG VIAL IV SCH (08:24)
[2022-04-25] MEDS: ENOXAPARIN 40MG/0.4ML SYRINGE (J1650 PER 10MG) SC SCH (08:25)
[2022-04-25] MEDS: NEUTRA-PHOS 1.5 GM PACKET PO SCH ×3 (08:25→21:22)
[2022-04-25] MEDS ORDERED: SODIUM BICARBONATE 325 MG TAB PO SCH (09:00)
[2022-04-25] MEDS ORDERED: GLUCAGON INJ 1MG VIAL SC PRN (09:15)
[2022-04-25] MEDS ORDERED: DEXTROSE 50% 50 ML SYRINGE IV PRN (09:15)
[2022-04-25] MEDS ORDERED: GLUCOSE 4GM CHEW TABLET PO PRN (09:15)
[2022-04-25] MEDS: LEVEMIR (INSULIN DETEMIR) 1 UNITS/0.01ML SC SCH ×2 (09:57→21:22)
[2022-04-25] MEDS: INSULIN LISPRO (NovoLOG) PER UNIT SC SCH ×2 (12:48→18:19)
[2022-04-25 13:07] LABS: BLOOD UREA NITROGEN 4 MG/DL (7-18); CALCIUM LEVEL 7.9 MG/DL (8.5-10.1); CARBON DIOXIDE LEVEL 21 MEQ/L (21-32); CHLORIDE LEVEL 114 MEQ/L (98-107); CREATININE FOR GFR 0.96 MG/DL (0.55-1.30); GLOMERULAR FILTRATION RATE > 60.0 (>60); GLUCOSE, FASTING 270 MG/DL (70-100); POTASSIUM SERUM 3.9 MEQ/L (3.5-5.1); SODIUM LEVEL 140 MEQ/L (136-145)
[2022-04-25 18:31] LABS: BLOOD UREA NITROGEN 3 MG/DL (7-18); CALCIUM LEVEL 7.9 MG/DL (8.5-10.1); CARBON DIOXIDE LEVEL 18 MEQ/L (21-32); CHLORIDE LEVEL 119 MEQ/L (98-107); CREATININE FOR GFR 1.03 MG/DL (0.55-1.30); GLOMERULAR FILTRATION RATE > 60.0 (>60); GLUCOSE, FASTING 199 MG/DL (70-100); PHOSPHORUS LEVEL 1.8 MG/DL (2.5-4.9); POTASSIUM SERUM 4.3 MEQ/L (3.5-5.1); SODIUM LEVEL 142 MEQ/L (136-145)
[2022-04-25] MEDS: SODIUM CHLORIDE 0.9% INJ 10 ML SYR IV SCH (18:35)
[2022-04-25] MEDS ORDERED: POTASSIUM PHOSPHATE INJ 20 MMOL in D5W 250 ML IV ONE (21:00)
[2022-04-25] MEDS ORDERED: INSULIN LISPRO (NovoLOG) PER UNIT SC SCH (21:00)
[2022-04-25] MEDS: SODIUM BICARBONATE 325 MG TAB PO SCH (21:23)
[2022-04-26] MEDS: KCL 40MEQ IN D5/0.45NS 1000ML 1,000 ML IV SCH ×2 (00:30→05:58)
[2022-04-26 00:35] LABS: BLOOD UREA NITROGEN 4 MG/DL (7-18); CALCIUM LEVEL 7.8 MG/DL (8.5-10.1); CARBON DIOXIDE LEVEL 19 MEQ/L (21-32); CHLORIDE LEVEL 117 MEQ/L (98-107); CREATININE FOR GFR 0.97 MG/DL (0.55-1.30); GLOMERULAR FILTRATION RATE > 60.0 (>60); GLUCOSE, FASTING 298 MG/DL (70-100); PHOSPHORUS LEVEL 2.6 MG/DL (2.5-4.9); POTASSIUM SERUM 4.8 MEQ/L (3.5-5.1); SODIUM LEVEL 141 MEQ/L (136-145)
[2022-04-26 05:19] VITALS: BP 142/102
[2022-04-26 06:27] LABS: BASO % 0.9 % (0.0-1.0); EOS # 0.1 10^3/uL (0.0-0.5); EOS % 3.2 % (0.0-3.0); HEMATOCRIT 29.5 % (36.0-47.0); LYMPH # 0.8 10^3/uL (1.5-5.0); LYMPH % 34.2 % (24.0-44.0); MEAN CORPUSCULAR HEMOGLOBIN 30.1 pg (27.0-33.0); MEAN CORPUSCULAR HGB CONC 33.9 g/dl (32.0-36.5); MEAN CORPUSCULAR VOLUME 88.9 fl (80.0-96.0); MONO # 0.2 10^3/uL (0.0-0.8); MONO % 10.8 % (2.0-8.0); NEUTROPHILS # 1.1 10^3/uL (1.5-8.5); NEUTROPHILS % 50.4 % (36.0-66.0); PLATELET COUNT, AUTOMATED 124 10^3/uL (150-450); RED BLOOD COUNT 3.32 10^6/uL (4.00-5.40); WHITE BLOOD COUNT 2.2 10^3/uL (4.0-10.0)
[2022-04-26 06:51] LABS: BLOOD UREA NITROGEN 6 MG/DL (7-18); CALCIUM LEVEL 8.2 MG/DL (8.5-10.1); CARBON DIOXIDE LEVEL 22 MEQ/L (21-32); CHLORIDE LEVEL 113 MEQ/L (98-107); CREATININE FOR GFR 1.02 MG/DL (0.55-1.30); GLOMERULAR FILTRATION RATE > 60.0 (>60); GLUCOSE, FASTING 417 MG/DL (70-100); POTASSIUM SERUM 5.2 MEQ/L (3.5-5.1); SODIUM LEVEL 140 MEQ/L (136-145)
[2022-04-26] MEDS ORDERED: NS 1,000 ML IV ONE (07:15)
[2022-04-26] MEDS ORDERED: INSULIN LISPRO (NovoLOG) PER UNIT SC STA (07:16)
[2022-04-26] MEDS ORDERED: LEVEMIR (INSULIN DETEMIR) 1 UNITS/0.01ML SC ONE (07:20)
[2022-04-26] MEDS: SODIUM CHLORIDE 0.9% INJ 10 ML SYR IV PRN ×2 (08:37→14:17)
[2022-04-26] MEDS: SODIUM BICARBONATE 325 MG TAB PO SCH (08:39)
[2022-04-26] MEDS: PANTOPRAZOLE 40MG VIAL IV SCH (08:39)
[2022-04-26] MEDS: ENOXAPARIN 40MG/0.4ML SYRINGE (J1650 PER 10MG) SC SCH (08:39)
[2022-04-26] MEDS: INSULIN LISPRO (NovoLOG) PER UNIT SC SCH ×2 (08:40→13:00)
[2022-04-26 12:22] LABS: BLOOD UREA NITROGEN 8 MG/DL (7-18); CALCIUM LEVEL 9.3 MG/DL (8.5-10.1); CARBON DIOXIDE LEVEL 24 MEQ/L (21-32); CHLORIDE LEVEL 115 MEQ/L (98-107); CREATININE FOR GFR 0.83 MG/DL (0.55-1.30); GLOMERULAR FILTRATION RATE > 60.0 (>60); GLUCOSE, FASTING 54 MG/DL (70-100); POTASSIUM SERUM 4.3 MEQ/L (3.5-5.1); SODIUM LEVEL 145 MEQ/L (136-145)
[2022-04-26] MEDS ORDERED: TRES100I SC (13:39)
[2022-04-26] MEDS ORDERED: INSUH10VL SC ×3 (13:39)
[2022-04-26] MEDS ORDERED: TRES1INJ2 SC (13:39)
[2022-04-26] MEDS ORDERED: COMMENTS (13:39)
[2022-04-26] MEDS: DEXTROSE 50% 50 ML SYRINGE IV SCH ×2 (13:57→14:16)
[2022-04-26 14:00] VITALS: BP 142/96
[2022-04-26 16:21] VITALS: BP 118/88
== END 2022-04-26 17:09 | disposition home or self-care (01) | DRG 420 ==
LOC: M ED 10:57 → M ED INP 14:24 → M ICU 17:53 → M MSPAV 04-25 16:00
PROVIDERS: ADMIT Internal Medicine Pulmonary Disease; ATTEND General Practice
PROC: 05HB33Z Insertion of Infusion Device into Right Basilic Vein, Percutaneous Approach (ICD-10-PCS; principal; 2022-04-23 16:00)
DX: E10.10 Type 1 diabetes mellitus with ketoacidosis without coma (principal); N17.9 Acute kidney failure, unspecified; E87.5 Hyperkalemia; E83.39 Other disorders of phosphorus metabolism; E10.65 Type 1 diabetes mellitus with hyperglycemia; E87.1 Hypo-osmolality and hyponatremia; F41.9 Anxiety disorder, unspecified; F32.A Depression, unspecified; Z79.4 Long term (current) use of insulin; N87.9 Dysplasia of cervix uteri, unspecified

== ENCOUNTER 2022-05-22 12:58 | Inpatient (IN) | payer OTHER ==
[~2022-05-22] VITALS: Ht 162.6 cm; Wt 55.2 kg
[2022-05-22] MEDS ORDERED: HumuLIN R (REGULAR) INSULIN (NovoLIN R) **100U/ML** PER UNIT IV ONE (13:45)
[2022-05-22] MEDS ORDERED: NS 1,000 ML IV ONE ×2 (13:45→15:25)
[2022-05-22 14:08] LABS: HEMATOCRIT 37.9 % (36.0-47.0); HEMOGLOBIN 12.3 g/dl (12.0-15.5); MEAN CORPUSCULAR HEMOGLOBIN 30.4 pg (27.0-33.0); MEAN CORPUSCULAR HGB CONC 32.5 g/dl (32.0-36.5); MEAN CORPUSCULAR VOLUME 93.8 fl (80.0-96.0); PLATELET COUNT, AUTOMATED 325 10^3/uL (150-450); RED BLOOD COUNT 4.04 10^6/uL (4.00-5.40); WHITE BLOOD COUNT 10.3 10^3/uL (4.0-10.0)
[2022-05-22 14:27] LABS: HEMOGLOBIN A1c 10.7 %
[2022-05-22 14:54] LABS: ACETONE/KETONE > 46.00 MG/DL (<2.81); ALBUMIN 3.4 GM/DL (3.2-5.2); ALT/SGPT 19 U/L (12-78); BILIRUBIN,DIRECT < 0.1 MG/DL (0.0-0.2); BILIRUBIN,TOTAL 0.5 MG/DL (0.2-1.0); BLOOD UREA NITROGEN 34 MG/DL (7-18); CARBON DIOXIDE LEVEL 6 MEQ/L (21-32); CHLORIDE LEVEL 105 MEQ/L (98-107); CREATININE FOR GFR 1.69 MG/DL (0.55-1.30); GLOMERULAR FILTRATION RATE 36.9 (>60); LIPASE 109 U/L (73-393); POTASSIUM SERUM 5.9 MEQ/L (3.5-5.1); SODIUM LEVEL 133 MEQ/L (136-145); TOTAL PROTEIN 7.4 GM/DL (6.4-8.2)
[2022-05-22 15:07] LABS: OSMOLALITY SERUM 337 MOSM/KG (275-295)
[2022-05-22] MEDS ORDERED: INSULIN IV RATE CHANGE DOCUMENTATION ML/HR XX SCH ×3 (15:15→19:30)
[2022-05-22] MEDS ORDERED: INSULIN REGULAR IN 0.9 % NACL 100 UNIT in IV 1 EA IV SCH ×4 (15:15→17:15)
[2022-05-22] MEDS ORDERED: METOCLOPRAMIDE 10MG TAB PO ONE (15:25)
[2022-05-22 15:34] LABS: PHOSPHORUS LEVEL 5.7 MG/DL (2.5-4.9)
[2022-05-22 15:57] LABS: GLUCOSE, FASTING 558 MG/DL (70-100)
[2022-05-22 16:42] LABS: RSV AMPLIFICATION NEGATIVE (NEGATIVE)
[2022-05-22] MEDS ORDERED: NS 1,000 ML IV SCH (18:00)
[2022-05-22] MEDS: PANTOPRAZOLE 40MG VIAL IV SCH (18:01)
[2022-05-22] MEDS ORDERED: HOME MED LIST COMPLETE! XX SCH (18:10)
[2022-05-22 19:13] VITALS: BP 139/95
[2022-05-22] MEDS: INSULIN IV RATE CHANGE DOCUMENTATION ML/HR XX SCH ×3 (19:59→22:02)
[2022-05-22 20:00] VITALS: BP 133/77
[2022-05-22 20:35] LABS: CALCIUM LEVEL 9.1 MG/DL (8.5-10.1); CREATININE FOR GFR 1.49 MG/DL (0.55-1.30); GLOMERULAR FILTRATION RATE 42.6 (>60); PHOSPHORUS LEVEL 1.7 MG/DL (2.5-4.9); POTASSIUM SERUM 4.6 MEQ/L (3.5-5.1)
[2022-05-22 21:00] VITALS: BP 121/72
[2022-05-22] MEDS ORDERED: LEVEMIR (INSULIN DETEMIR) 1 UNITS/0.01ML SC SCH (21:00)
[2022-05-22] MEDS: ENOXAPARIN 40MG/0.4ML SYRINGE (J1650 PER 10MG) SC SCH (21:01)
[2022-05-22] MEDS ORDERED: POTASSIUM PHOSPHATE INJ 20 MMOL in D5W 250 ML IV ONE (21:30)
[2022-05-22 22:00] VITALS: BP 122/65
[2022-05-22] MEDS: ONDANSETRON 4MG 2ML VIAL IV PRN (22:27)
[2022-05-22] MEDS: NS 1,000 ML IV SCH (22:28)
[2022-05-22 23:00] VITALS: BP 140/88
[2022-05-22] MEDS ORDERED: GLUCOSE 4GM CHEW TABLET PO PRN (23:25)
[2022-05-22] MEDS ORDERED: DEXTROSE 50% 50 ML SYRINGE IV PRN (23:25)
[2022-05-22] MEDS ORDERED: GLUCAGON INJ 1MG VIAL SC PRN (23:25)
[2022-05-23] VITALS (13 sets, daily range): BP systolic 112–153; BP diastolic 58–91
[2022-05-23] MEDS: ONDANSETRON 4MG 2ML VIAL IV PRN ×3 (02:27→13:57)
[2022-05-23 03:04] LABS: CALCIUM LEVEL 9.2 MG/DL (8.5-10.1); CREATININE FOR GFR 1.28 MG/DL (0.55-1.30); GLOMERULAR FILTRATION RATE 50.8 (>60); POTASSIUM SERUM 4.4 MEQ/L (3.5-5.1)
[2022-05-23] MEDS: NS 1,000 ML IV SCH (03:11)
[2022-05-23 05:15] LABS: HEMATOCRIT 31.1 % (36.0-47.0); HEMOGLOBIN 10.4 g/dl (12.0-15.5); MEAN CORPUSCULAR HEMOGLOBIN 30.1 pg (27.0-33.0); MEAN CORPUSCULAR HGB CONC 33.4 g/dl (32.0-36.5); MEAN CORPUSCULAR VOLUME 90.1 fl (80.0-96.0); PLATELET COUNT, AUTOMATED 268 10^3/uL (150-450); RED BLOOD COUNT 3.45 10^6/uL (4.00-5.40); WHITE BLOOD COUNT 8.5 10^3/uL (4.0-10.0)
[2022-05-23 05:40] LABS: ACETONE/KETONE 43.32 MG/DL (<2.81); CALCIUM LEVEL 8.8 MG/DL (8.5-10.1); CREATININE FOR GFR 1.27 MG/DL (0.55-1.30); GLOMERULAR FILTRATION RATE 51.3 (>60); PHOSPHORUS LEVEL 2.8 MG/DL (2.5-4.9); POTASSIUM SERUM 4.3 MEQ/L (3.5-5.1)
[2022-05-23] MEDS: KCL 20MEQ IN D5/0.45NS 1000ML 1,000 ML IV SCH ×3 (08:10→21:43)
[2022-05-23] MEDS: PANTOPRAZOLE 40MG VIAL IV SCH (08:10)
[2022-05-23] MEDS: INSULIN LISPRO (NovoLOG) PER UNIT SC SCH ×4 (08:11→20:13)
[2022-05-23 09:55] LABS: CALCIUM LEVEL 8.6 MG/DL (8.5-10.1); CREATININE FOR GFR 1.24 MG/DL (0.55-1.30); GLOMERULAR FILTRATION RATE 52.7 (>60); POTASSIUM SERUM 3.8 MEQ/L (3.5-5.1)
[2022-05-23 16:49] LABS: CALCIUM LEVEL 8.5 MG/DL (8.5-10.1); CREATININE FOR GFR 1.14 MG/DL (0.55-1.30); GLOMERULAR FILTRATION RATE 58.1 (>60); POTASSIUM SERUM 3.6 MEQ/L (3.5-5.1)
[2022-05-23] MEDS: ENOXAPARIN 40MG/0.4ML SYRINGE (J1650 PER 10MG) SC SCH (21:43)
[2022-05-24] VITALS (7 sets, daily range): BP systolic 130–168; BP diastolic 80–111
[2022-05-24] MEDS: KCL 20MEQ IN D5/0.45NS 1000ML 1,000 ML IV SCH (04:40)
[2022-05-24 06:28] LABS: HEMATOCRIT 33.7 % (36.0-47.0); HEMOGLOBIN 11.3 g/dl (12.0-15.5); MEAN CORPUSCULAR HEMOGLOBIN 29.7 pg (27.0-33.0); MEAN CORPUSCULAR HGB CONC 33.5 g/dl (32.0-36.5); MEAN CORPUSCULAR VOLUME 88.5 fl (80.0-96.0); PLATELET COUNT, AUTOMATED 192 10^3/uL (150-450); RED BLOOD COUNT 3.81 10^6/uL (4.00-5.40); WHITE BLOOD COUNT 3.7 10^3/uL (4.0-10.0)
[2022-05-24 06:48] LABS: BLOOD UREA NITROGEN 8 MG/DL (7-18); CALCIUM LEVEL 8.7 MG/DL (8.5-10.1); CARBON DIOXIDE LEVEL 17 MEQ/L (21-32); CHLORIDE LEVEL 112 MEQ/L (98-107); CREATININE FOR GFR 1.09 MG/DL (0.55-1.30); GLOMERULAR FILTRATION RATE > 60.0 (>60); GLUCOSE, FASTING 372 MG/DL (70-100); POTASSIUM SERUM 3.9 MEQ/L (3.5-5.1); SODIUM LEVEL 138 MEQ/L (136-145)
[2022-05-24] MEDS: INSULIN LISPRO (NovoLOG) PER UNIT SC SCH ×5 (09:09→21:52)
[2022-05-24] MEDS: PANTOPRAZOLE 40MG TAB (PROTONIX) PO SCH (09:09)
[2022-05-24] MEDS ORDERED: ACETAMINOPHEN 500 MG TAB PO PRN (10:50)
[2022-05-24] MEDS ORDERED: KCL 20MEQ IN D5/0.45NS 1000ML 1,000 ML IV SCH (18:00)
[2022-05-24] MEDS: ONDANSETRON 4MG 2ML VIAL IV PRN (18:19)
[2022-05-24] MEDS ORDERED: LEVEMIR (INSULIN DETEMIR) 1 UNITS/0.01ML SC SCH (21:00)
[2022-05-24] MEDS ORDERED: INSULIN LISPRO (NovoLOG) PER UNIT SC ONE (21:35)
[2022-05-24] MEDS ORDERED: KCL 20MEQ in NS 1000ML 1,000 ML IV SCH (21:35)
[2022-05-24] MEDS: ENOXAPARIN 40MG/0.4ML SYRINGE (J1650 PER 10MG) SC SCH (21:51)
[2022-05-25 06:00] VITALS: BP 129/72
[2022-05-25 06:09] LABS: HEMATOCRIT 30.6 % (36.0-47.0); HEMOGLOBIN 10.2 g/dl (12.0-15.5); MEAN CORPUSCULAR HEMOGLOBIN 29.7 pg (27.0-33.0); MEAN CORPUSCULAR HGB CONC 33.3 g/dl (32.0-36.5); PLATELET COUNT, AUTOMATED 196 10^3/uL (150-450); RED BLOOD COUNT 3.44 10^6/uL (4.00-5.40); WHITE BLOOD COUNT 3.5 10^3/uL (4.0-10.0)
[2022-05-25 06:39] LABS: BLOOD UREA NITROGEN 8 MG/DL (7-18); CALCIUM LEVEL 9.5 MG/DL (8.5-10.1); CARBON DIOXIDE LEVEL 25 MEQ/L (21-32); CHLORIDE LEVEL 113 MEQ/L (98-107); CREATININE FOR GFR 0.74 MG/DL (0.55-1.30); GLOMERULAR FILTRATION RATE > 60.0 (>60); GLUCOSE, FASTING 178 MG/DL (70-100); POTASSIUM SERUM 3.9 MEQ/L (3.5-5.1); SODIUM LEVEL 140 MEQ/L (136-145)
[2022-05-25] MEDS: PANTOPRAZOLE 40MG TAB (PROTONIX) PO SCH (08:54)
[2022-05-25] MEDS: INSULIN LISPRO (NovoLOG) PER UNIT SC SCH (08:54)
== END 2022-05-25 11:55 | disposition home or self-care (01) | DRG 420 ==
LOC: M ED 12:58 → M ED INP 17:15 → ENRESERV 17:46 → M ICU 19:20 → M MSPAV 05-23 11:24
PROVIDERS: ADMIT Family Medicine; ATTEND Internal Medicine
DX: E10.10 Type 1 diabetes mellitus with ketoacidosis without coma (principal); N17.9 Acute kidney failure, unspecified; Z79.4 Long term (current) use of insulin; F41.9 Anxiety disorder, unspecified; F32.A Depression, unspecified; E87.1 Hypo-osmolality and hyponatremia

== ENCOUNTER 2022-06-25 22:10 | Inpatient (IN) | payer OTHER ==
[~2022-06-25] VITALS: Ht 160 cm; Wt 57.8 kg
[2022-06-26] VITALS (13 sets, daily range): BP systolic 127–176; BP diastolic 77–107
[2022-06-26] MEDS ORDERED: NS 1,000 ML IV ONE ×2 (01:05→06:30)
[2022-06-26 01:28] LABS: ABG BASE EXCESS -11.3 (-2.0-2.0); ABG HCO3 14.2 MEQ/L (22.0-26.0); ABG O2 SATURATION 97.5 % (95.0-99.0); ABG PARTIAL PRESSURE CO2 30.9 mmHg (35.0-45.0); ABG PARTIAL PRESSURE O2 102.3 mmHg (75.0-100.0); ABG STANDARD HCO3 15.7 MEQ/L (22.0-26.0); ABG TOTAL CO2 15.1 MEQ/L (22.0-29.0); ABG pH (ARTERIAL) 7.279 UNITS (7.350-7.450)
[2022-06-26] MEDS ORDERED: ONDANSETRON 4MG 2ML VIAL IV ONE (02:30)
[2022-06-26] MEDS ORDERED: ACETAMINOPHEN TAB 650MG DOSE (2X325MG) PO ONE (02:30)
[2022-06-26 03:07] LABS: BASO % 0.6 % (0.0-1.0); HEMATOCRIT 40.7 % (36.0-47.0); HEMOGLOBIN 12.9 g/dl (12.0-15.5); LYMPH # 0.8 10^3/uL (1.5-5.0); LYMPH % 17.1 % (24.0-44.0); MEAN CORPUSCULAR HEMOGLOBIN 29.4 pg (27.0-33.0); MEAN CORPUSCULAR HGB CONC 31.7 g/dl (32.0-36.5); MEAN CORPUSCULAR VOLUME 92.7 fl (80.0-96.0); MONO # 0.3 10^3/uL (0.0-0.8); MONO % 6.4 % (2.0-8.0); NEUTROPHILS # 3.5 10^3/uL (1.5-8.5); NEUTROPHILS % 75.5 % (36.0-66.0); PLATELET COUNT, AUTOMATED 266 10^3/uL (150-450); RED BLOOD COUNT 4.39 10^6/uL (4.00-5.40); WHITE BLOOD COUNT 4.7 10^3/uL (4.0-10.0)
[2022-06-26 03:32] LABS: OSMOLALITY SERUM 322 MOSM/KG (275-295)
[2022-06-26 03:58] LABS: ACETONE/KETONE > 46.00 MG/DL (<2.81); ALT/SGPT 19 U/L (12-78); BILIRUBIN,DIRECT < 0.1 MG/DL (0.0-0.2); BILIRUBIN,TOTAL 0.4 MG/DL (0.2-1.0); BLOOD UREA NITROGEN 37 MG/DL (7-18); CALCIUM LEVEL 9.6 MG/DL (8.5-10.1); CARBON DIOXIDE LEVEL 14 MEQ/L (21-32); CHLORIDE LEVEL 103 MEQ/L (98-107); GLOMERULAR FILTRATION RATE 36.6 (>60); GLUCOSE, FASTING 391 MG/DL (70-100); POTASSIUM SERUM 4.9 MEQ/L (3.5-5.1); SODIUM LEVEL 135 MEQ/L (136-145); TOTAL PROTEIN 7.4 GM/DL (6.4-8.2)
[2022-06-26 03:59] LABS: LIPASE 51 U/L (73-393)
[2022-06-26] MEDS ORDERED: HumuLIN R (REGULAR) INSULIN (NovoLIN R) **100U/ML** PER UNIT IV ONE (04:00)
[2022-06-26] MEDS ORDERED: INSULIN REGULAR IN 0.9 % NACL 100 UNIT in IV 1 EA IV SCH ×2 (05:45)
[2022-06-26] MEDS: NS 1,000 ML IV SCH ×3 (06:08→08:27)
[2022-06-26 07:14] LABS: RSV AMPLIFICATION NEGATIVE (NEGATIVE)
[2022-06-26] MEDS ORDERED: ACET-910 PO (07:23)
[2022-06-26] MEDS ORDERED: HOME MED LIST COMPLETE! XX SCH (07:25)
[2022-06-26] MEDS: INSULIN IV RATE CHANGE DOCUMENTATION ML/HR XX SCH ×6 (07:44→18:17)
[2022-06-26 08:02] LABS: CALCIUM LEVEL 7.6 MG/DL (8.5-10.1); CREATININE FOR GFR 1.26 MG/DL (0.55-1.30); GLOMERULAR FILTRATION RATE 51.7 (>60); PHOSPHORUS LEVEL 2.1 MG/DL (2.5-4.9); POTASSIUM SERUM 3.7 MEQ/L (3.5-5.1)
[2022-06-26] MEDS: HEPARIN SOD (PORCINE) 5000UNITS/ML 1ML VIAL/SYRINGE SC SCH ×3 (09:01→21:52)
[2022-06-26] MEDS: D5W/0.45% SODIUM CHLORIDE 1,000 ML IV SCH ×2 (09:40→16:32)
[2022-06-26 09:52] LABS: RBC, URINE 0-1 /hpf (0-3); SQUAMOUS EPITHELIAL CELL URINE SMALL AMOUNT /hpf (SMALL AMT); WBC, URINE 0-1 /hpf (0-3)
[2022-06-26 09:53] LABS: BACTERIA, URINE SMALL AMOUNT; HYALINE CAST, URINE 0-1 /lpf (0-1)
[2022-06-26 09:58] LABS: MAGNESIUM LEVEL 1.7 MG/DL (1.8-2.4)
[2022-06-26] MEDS ORDERED: GLUCOSE 4GM CHEW TABLET PO PRN (10:20)
[2022-06-26] MEDS ORDERED: DEXTROSE 50% 50 ML SYRINGE IV PRN (10:20)
[2022-06-26] MEDS ORDERED: ONDANSETRON 4MG 2ML VIAL IV PRN (10:20)
[2022-06-26] MEDS ORDERED: ACETAMINOPHEN TAB 650MG DOSE (2X325MG) PO PRN (10:20)
[2022-06-26] MEDS ORDERED: GLUCAGON INJ 1MG VIAL SC PRN (10:20)
[2022-06-26] MEDS ORDERED: NEUTRA-PHOS 1.5 GM PACKET PO ONE (10:30)
[2022-06-26] MEDS: KCL 20MEQ IN 100ML SWI (KRUN) 20 MEQ in IV 1 EA IV SCH ×6 (11:08→13:40)
[2022-06-26] MEDS: MAG SULF 1GM/100ML (MAG RUN) 1 GM in IV 1 EA IV SCH ×2 (11:08→12:20)
[2022-06-26 14:32] LABS: CALCIUM LEVEL 8.6 MG/DL (8.5-10.1); CREATININE FOR GFR 1.35 MG/DL (0.55-1.30); GLOMERULAR FILTRATION RATE 47.8 (>60); PHOSPHORUS LEVEL 1.7 MG/DL (2.5-4.9); POTASSIUM SERUM 4.2 MEQ/L (3.5-5.1)
[2022-06-26 15:05] LABS: MAGNESIUM LEVEL 3.1 MG/DL (1.8-2.4)
[2022-06-26] MEDS ORDERED: LEVEMIR (INSULIN DETEMIR) 1 UNITS/0.01ML SC ONE (16:15)
[2022-06-26] MEDS ORDERED: INSULIN LISPRO (NovoLOG) PER UNIT SC SCH (21:00)
[2022-06-26 21:48] LABS: CALCIUM LEVEL 8.2 MG/DL (8.5-10.1); CREATININE FOR GFR 1.33 MG/DL (0.55-1.30); GLOMERULAR FILTRATION RATE 48.6 (>60); POTASSIUM SERUM 3.9 MEQ/L (3.5-5.1)
[2022-06-27 01:12] VITALS: BP 138/84
[2022-06-27] MEDS: HEPARIN SOD (PORCINE) 5000UNITS/ML 1ML VIAL/SYRINGE SC SCH (05:46)
[2022-06-27 06:00] VITALS: BP 109/76
[2022-06-27 06:13] LABS: BASO % 0.7 % (0.0-1.0); EOS % 0.2 % (0.0-3.0); HEMATOCRIT 28.8 % (36.0-47.0); LYMPH # 1.9 10^3/uL (1.5-5.0); LYMPH % 41.3 % (24.0-44.0); MEAN CORPUSCULAR HEMOGLOBIN 29.3 pg (27.0-33.0); MEAN CORPUSCULAR HGB CONC 33.7 g/dl (32.0-36.5); MONO # 0.4 10^3/uL (0.0-0.8); MONO % 9.6 % (2.0-8.0); NEUTROPHILS # 2.2 10^3/uL (1.5-8.5); PLATELET COUNT, AUTOMATED 203 10^3/uL (150-450); RED BLOOD COUNT 3.31 10^6/uL (4.00-5.40); WHITE BLOOD COUNT 4.5 10^3/uL (4.0-10.0)
[2022-06-27 06:14] LABS: HEMOGLOBIN 9.7 g/dl (12.0-15.5)
[2022-06-27 06:47] LABS: CALCIUM LEVEL 8.8 MG/DL (8.5-10.1); CREATININE FOR GFR 1.28 MG/DL (0.55-1.30); GLOMERULAR FILTRATION RATE 50.8 (>60); POTASSIUM SERUM 3.7 MEQ/L (3.5-5.1)
[2022-06-27] MEDS ORDERED: LEVEMIR (INSULIN DETEMIR) 1 UNITS/0.01ML SC SCH ×2 (09:00→21:00)
[2022-06-27] MEDS ORDERED: INSULIN LISPRO (NovoLOG) PER UNIT SC SCH (17:30)
== END 2022-06-27 09:40 | disposition home or self-care (01) | DRG 420 ==
LOC: M ED 22:10 → M ED INP 06-26 05:41 → M ICU 06-26 07:54 → M MSPAV 06-27 00:51
PROVIDERS: ADMIT Internal Medicine; ATTEND Internal Medicine
DX: E10.10 Type 1 diabetes mellitus with ketoacidosis without coma (principal); Z79.4 Long term (current) use of insulin

== ENCOUNTER 2022-07-28 19:05 | Emergency (ER) | payer OTHER ==
[~2022-07-28] VITALS: Ht 162.6 cm; Wt 71.1 kg
[~2022-07-28 19:05] MED LIST changes: +ACET-910 PO
[2022-07-28] MEDS ORDERED: DEXTROSE 50% 50 ML SYRINGE IV STA (19:10)
[2022-07-28] MEDS ORDERED: ONDANSETRON 4MG 2ML VIAL As Ordered ONE (19:23)
[2022-07-28 19:25] LABS: VENOUS BASE EXCESS -1.1 (-2.0-2.0); VENOUS HCO3 24.8 MEQ/L (23.0-27.0); VENOUS O2 SATURATION 85.1 % (60.0-80.0); VENOUS PARTIAL PRESSURE CO2 46.3 mmHg (38.0-50.0); VENOUS PARTIAL PRESSURE O2 52.8 mmHg (30.0-50.0); VENOUS PH 7.346 UNITS (7.330-7.430); VENOUS STANDARD HCO3 23.3 MEQ/L; VENOUS TOTAL CO2 26.2 MEQ/L (24.0-28.0)
[2022-07-28] MEDS ORDERED: ONDANSETRON 4MG 2ML VIAL IV ONE (19:25)
[2022-07-28] MEDS ORDERED: D5W/0.9% SODIUM CHLORIDE 1,000 ML IV SCH (19:30)
[2022-07-28 19:32] LABS: BASO % 0.4 % (0.0-1.0); EOS # 0.1 10^3/uL (0.0-0.5); EOS % 1.2 % (0.0-3.0); HEMOGLOBIN 10.4 g/dl (12.0-15.5); LYMPH # 1.4 10^3/uL (1.5-5.0); LYMPH % 24.6 % (24.0-44.0); MEAN CORPUSCULAR HEMOGLOBIN 28.4 pg (27.0-33.0); MEAN CORPUSCULAR HGB CONC 32.5 g/dl (32.0-36.5); MEAN CORPUSCULAR VOLUME 87.4 fl (80.0-96.0); MONO # 0.4 10^3/uL (0.0-0.8); MONO % 7.1 % (2.0-8.0); NEUTROPHILS # 3.7 10^3/uL (1.5-8.5); NEUTROPHILS % 66.5 % (36.0-66.0); PLATELET COUNT, AUTOMATED 196 10^3/uL (150-450); RED BLOOD COUNT 3.66 10^6/uL (4.00-5.40); WHITE BLOOD COUNT 5.6 10^3/uL (4.0-10.0)
[2022-07-28] MEDS ORDERED: METOCLOPRAMIDE INJ 10MG/2ML VIAL (J2765 PER 1) IV ONE (19:35)
[2022-07-28 19:58] LABS: OSMOLALITY SERUM 290 MOSM/KG (275-295)
[2022-07-28 20:03] LABS: APPEARANCE, URINE MANUAL CLEAR (CLEAR); COLOR, URINE MANUAL YELLOW (YELLOW)
[2022-07-28 20:04] LABS: BILIRUBIN, URINE MANUAL NEGATIVE (NEGATIVE); BLOOD URINE MANUAL POSITIVE (NEGATIVE); GLUCOSE, URINE (UA) MANUAL 1+(100 MG/DL) mg/dL (NEGATIVE); KETONE, URINE MANUAL NEGATIVE (NEGATIVE); LEUKOCYTE ESTERASE, URINE MAN NEGATIVE (NEGATIVE); NITRITE, URINE MANUAL NEGATIVE (NEGATIVE); PROTEIN, URINE MANUAL 3+ mg/dL (NEGATIVE); UROBILINOGEN, URINE MANUAL NORMAL (NORMAL)
[2022-07-28 20:17] LABS: ACETONE/KETONE 1.19 MG/DL (<2.81); ALBUMIN 2.9 GM/DL (3.2-5.2); ALT/SGPT 28 U/L (12-78); BILIRUBIN,DIRECT < 0.1 MG/DL (0.0-0.2); BILIRUBIN,TOTAL 0.2 MG/DL (0.2-1.0); LIPASE 154 U/L (73-393); MAGNESIUM LEVEL 2.8 MG/DL (1.8-2.4); PHOSPHORUS LEVEL 3.5 MG/DL (2.5-4.9); TOTAL PROTEIN 6.4 GM/DL (6.4-8.2)
[2022-07-28 20:19] LABS: RBC, URINE 40-50 /hpf (0-3); SQUAMOUS EPITHELIAL CELL URINE SMALL AMOUNT /hpf (SMALL AMT)
[2022-07-28 20:20] LABS: BACTERIA, URINE NONE SEEN; HYALINE CAST, URINE NONE SEEN /lpf (0-1); MUCUS, URINE SMALL AMOUNT (NEGATIVE)
[2022-07-28 20:49] LABS: HEMOGLOBIN A1c 9.2 %
[2022-07-28 23:49] VITALS: BP 154/85
== END 2022-07-28 23:54 | disposition home or self-care (01) ==
LOC: EDBD 19:05 → M ED 19:05
DX: E11.649 Type 2 diabetes mellitus with hypoglycemia without coma (principal); I10 Essential (primary) hypertension; K21.9 Gastro-esophageal reflux disease without esophagitis; E78.5 Hyperlipidemia, unspecified; F33.1 Major depressive disorder, recurrent, moderate; Z79.4 Long term (current) use of insulin; Z79.899 Other long term (current) drug therapy
CPT/HCPCS: 71045; 80047; 80076; 81000; 82010; 82803; 83036; 83690; 83735; 83930; 84100; 85025; 93005; 93041; 94760; 96365; 96366; 96375; 99291; J2405; J2765

== ENCOUNTER → 2022-09-30 | Outpatient (REF) | payer OTHER ==
[~2022-09-30] MED LIST changes: -DOXY-350 PO; +DOXY-444 PO
[2022-09-30 14:29] LABS: CREATININE, URINE 89.4 MG/DL; MAU/CREAT RATIO 1914.9 MCG/MG (0.0-30.0)
== END ==
LOC: M LAB REF 11:44
PROVIDERS: ATTEND Family Medicine Addiction Medicine
DX: E10.9 Type 1 diabetes mellitus without complications (principal)

== ENCOUNTER 2022-10-22 02:00 | Inpatient (IN) | payer OTHER ==
[2022-10-22] VITALS (7 sets, daily range): BP systolic 127–148; BP diastolic 71–88; O2SAT 98
[~2022-10-22] VITALS: Ht 162.6 cm; Wt 57.7 kg
[~2022-10-22 02:00] MED LIST changes: +ADME100I2 SUBQ; +BASA100I SUBQ; +CARA1TAB6 PO; +LISI20TA33 PO; +OMEP40CA4 PO
[2022-10-22] MEDS ORDERED: NS 1,000 ML IV ONE ×2 (02:30→05:40)
[2022-10-22] MEDS ORDERED: ONDANSETRON 4MG ORAL DISINTEGRATING TAB PO ONE (03:30)
[2022-10-22 04:10] LABS: VENOUS BASE EXCESS -19.4 (-2.0-2.0); VENOUS HCO3 6.9 MEQ/L (23.0-27.0); VENOUS O2 SATURATION 97.9 % (60.0-80.0); VENOUS PARTIAL PRESSURE CO2 18.9 mmHg (38.0-50.0); VENOUS STANDARD HCO3 10.2 MEQ/L; VENOUS TOTAL CO2 7.5 MEQ/L (24.0-28.0)
[2022-10-22] MEDS ORDERED: HumuLIN R (REGULAR) INSULIN (NovoLIN R) **100U/ML** PER UNIT IV ONE (04:15)
[2022-10-22] MEDS ORDERED: INSULIN REGULAR IN 0.9 % NACL 100 UNIT in IV 1 EA IV SCH ×4 (04:15→05:40)
[2022-10-22 04:16] LABS: BASO % 0.2 % (0.0-1.0); HEMATOCRIT 34.3 % (36.0-47.0); HEMOGLOBIN 10.9 g/dl (12.0-15.5); LYMPH # 0.9 10^3/uL (1.5-5.0); LYMPH % 6.1 % (24.0-44.0); MEAN CORPUSCULAR HGB CONC 31.8 g/dl (32.0-36.5); MEAN CORPUSCULAR VOLUME 88.2 fl (80.0-96.0); MONO # 0.4 10^3/uL (0.0-0.8); MONO % 2.5 % (2.0-8.0); NEUTROPHILS # 12.8 10^3/uL (1.5-8.5); NEUTROPHILS % 90.1 % (36.0-66.0); PLATELET COUNT, AUTOMATED 444 10^3/uL (150-450); RED BLOOD COUNT 3.89 10^6/uL (4.00-5.40); WHITE BLOOD COUNT 14.2 10^3/uL (4.0-10.0)
[2022-10-22 04:43] LABS: OSMOLALITY SERUM 367 MOSM/KG (275-295)
[2022-10-22] MEDS ORDERED: SODIUM BICARBONATE 8.4% INJ 50ML SYRINGE IV STA (04:47)
[2022-10-22 04:50] LABS: LIPASE 19 U/L (12-53)
[2022-10-22 04:53] LABS: ALBUMIN 2.7 G/DL (3.2-5.2); ALKALINE PHOSPHATASE 87 U/L (46-116); ALT/SGPT 24 U/L (7.0-40); AST/SGOT 11 U/L (<34); BILIRUBIN,DIRECT < 0.1 MG/DL (<0.4); BILIRUBIN,TOTAL 0.3 MG/DL (0.3-1.2); TOTAL PROTEIN 5.8 G/DL (5.7-8.2)
[2022-10-22] MEDS ORDERED: PANTOPRAZOLE 40MG VIAL IV ONE (04:55)
[2022-10-22 05:04] LABS: ACETONE/KETONE > 4.50 MMOL/L (0.02-0.27)
[2022-10-22] MEDS ORDERED: SUCR1TAB56 PO (05:19)
[2022-10-22] MEDS ORDERED: BASA100I SC (05:19)
[2022-10-22] MEDS ORDERED: OMEP40CA5 PO (05:19)
[2022-10-22] MEDS ORDERED: ADME100I SC (05:19)
[2022-10-22] MEDS ORDERED: HOME MED LIST COMPLETE! XX SCH (05:20)
[2022-10-22] MEDS ORDERED: HEPARIN SOD (PORCINE) 5000UNITS/ML 1ML VIAL/SYRINGE SC SCH (06:00)
[2022-10-22 06:04] LABS: HEMOGLOBIN A1c 11.4 % (4.0-6.0)
[2022-10-22 06:05] LABS: RSV AMPLIFICATION NEGATIVE (NEGATIVE)
[2022-10-22] MEDS ORDERED: NS 1,000 ML IV SCH (06:30)
[2022-10-22 07:40] LABS: CALCIUM LEVEL 9.6 MG/DL (8.5-10.1); CREATININE FOR GFR 1.67 MG/DL (0.55-1.30); GLOMERULAR FILTRATION RATE 37.4 (>60)
[2022-10-22] MEDS: ONDANSETRON 4MG 2ML VIAL IV PRN ×2 (08:11→17:08)
[2022-10-22] MEDS: INSULIN IV RATE CHANGE DOCUMENTATION ML/HR XX SCH ×6 (08:25→14:20)
[2022-10-22] MEDS ORDERED: MAALOX 30 ML SUSP *UDC PO PRN (10:45)
[2022-10-22 10:46] LABS: ABG BASE EXCESS -0.7 (-2.0-2.0); ABG HCO3 23.3 MEQ/L (22.0-26.0); ABG O2 SATURATION 97.1 % (95.0-99.0); ABG PARTIAL PRESSURE CO2 35.6 mmHg (35.0-45.0); ABG PARTIAL PRESSURE O2 101.2 mmHg (75.0-100.0); ABG STANDARD HCO3 23.9 MEQ/L (22.0-26.0); ABG TOTAL CO2 24.4 MEQ/L (22.0-29.0); ABG pH (ARTERIAL) 7.433 UNITS (7.350-7.450)
[2022-10-22] MEDS: KCL 40MEQ IN D5/0.45NS 1000ML 1,000 ML IV SCH ×2 (11:10→20:49)
[2022-10-22] MEDS: SUCRALFATE SUSP 1GM/10ML UD PO SCH ×3 (11:11→23:59)
[2022-10-22 11:22] LABS: MAGNESIUM LEVEL 2.2 MG/DL (1.8-2.4)
[2022-10-22 11:24] LABS: ALBUMIN 2.5 G/DL (3.2-5.2); BILIRUBIN,TOTAL 0.2 MG/DL (0.3-1.2); CALCIUM LEVEL 9.8 MG/DL (8.5-10.1); CREATININE FOR GFR 1.42 MG/DL (0.55-1.30); GLOMERULAR FILTRATION RATE 45.1 (>60); POTASSIUM SERUM 3.6 MMOL/L (3.5-5.1); TOTAL PROTEIN 5.8 G/DL (5.7-8.2)
[2022-10-22] MEDS: ENOXAPARIN 30MG/0.3ML SYRINGE (J1650 PER 10MG) SC SCH (14:53)
[2022-10-22] MEDS ORDERED: LIDOCAINE 1% MDV 20ML VIAL As Ordered ONE (15:57)
[2022-10-22 17:36] LABS: CALCIUM LEVEL 9.4 MG/DL (8.5-10.1); CREATININE FOR GFR 1.45 MG/DL (0.55-1.30); PHOSPHORUS LEVEL 2.5 MG/DL (2.5-4.9); POTASSIUM SERUM 4.2 MMOL/L (3.5-5.1)
[2022-10-22] MEDS ORDERED: GLUCOSE 4GM CHEW TABLET PO PRN (19:45)
[2022-10-22] MEDS ORDERED: GLUCAGON INJ 1MG VIAL SC PRN (19:45)
[2022-10-22] MEDS ORDERED: DEXTROSE 50% 50 ML SYRINGE IV PRN (19:45)
[2022-10-22] MEDS ORDERED: LEVEMIR (INSULIN DETEMIR) 1 UNITS/0.01ML SC SCH (20:00)
[2022-10-22] MEDS: INSULIN LISPRO (NovoLOG) PER UNIT SC SCH (21:00)
[2022-10-23] VITALS: BP 142/81
[2022-10-23] MEDS: ONDANSETRON 4MG 2ML VIAL IV PRN (02:53)
[2022-10-23 04:00] VITALS: BP 127/71
[2022-10-23] MEDS: SUCRALFATE SUSP 1GM/10ML UD PO SCH ×4 (05:37→23:48)
[2022-10-23 07:17] VITALS: BP 163/93
[2022-10-23] MEDS ORDERED: DEXTROSE 50% 50 ML SYRINGE IV STA (07:28)
[2022-10-23] MEDS ORDERED: INSULIN LISPRO (NovoLOG) PER UNIT SC SCH (07:30)
[2022-10-23] MEDS: INSULIN LISPRO (NovoLOG) PER UNIT SC SCH ×4 (07:30→19:58)
[2022-10-23] MEDS ORDERED: ONDANSETRON 4MG 2ML VIAL IV STA (07:45)
[2022-10-23] MEDS ORDERED: D5W/0.45% SODIUM CHLORIDE 1,000 ML IV SCH (07:50)
[2022-10-23] MEDS: PANTOPRAZOLE 40MG VIAL IV SCH (08:26)
[2022-10-23] MEDS: ENOXAPARIN 30MG/0.3ML SYRINGE (J1650 PER 10MG) SC SCH (08:26)
[2022-10-23 09:35] LABS: HEMATOCRIT 29.3 % (36.0-47.0); HEMOGLOBIN 9.4 g/dl (12.0-15.5); MEAN CORPUSCULAR HEMOGLOBIN 28.1 pg (27.0-33.0); MEAN CORPUSCULAR HGB CONC 32.1 g/dl (32.0-36.5); MEAN CORPUSCULAR VOLUME 87.5 fl (80.0-96.0); PLATELET COUNT, AUTOMATED 265 10^3/uL (150-450); RED BLOOD COUNT 3.35 10^6/uL (4.00-5.40); WHITE BLOOD COUNT 9.3 10^3/uL (4.0-10.0)
[2022-10-23 09:58] LABS: BLOOD UREA NITROGEN 19 MG/DL (9-23); CALCIUM LEVEL 9.5 MG/DL (8.5-10.1); CARBON DIOXIDE LEVEL 27 MMOL/L (20-31); CHLORIDE LEVEL 109 MMOL/L (98-107); CREATININE FOR GFR 1.08 MG/DL (0.55-1.30); GLOMERULAR FILTRATION RATE > 60.0 (>60); GLUCOSE, FASTING 103 MG/DL (60-100); PHOSPHORUS LEVEL 1.7 MG/DL (2.5-4.9); POTASSIUM SERUM 3.7 MMOL/L (3.5-5.1); SODIUM LEVEL 143 MMOL/L (136-145)
[2022-10-23] MEDS ORDERED: POTASSIUM PHOSPHATE INJ 15 MMOL in D5W 250 ML IV ONE (12:00)
[2022-10-23 12:08] VITALS: BP 133/76
[2022-10-23] MEDS ORDERED: CALCIUM CARBONATE 500 MG CHEW U/D PO ONE (15:20)
[2022-10-23] MEDS ORDERED: METOCLOPRAMIDE INJ 10MG/2ML VIAL IV PRN (16:35)
[2022-10-23 19:41] VITALS: BP 124/66
[2022-10-23] MEDS ORDERED: LEVEMIR (INSULIN DETEMIR) 1 UNITS/0.01ML SC SCH (21:00)
[2022-10-24] MEDS: ONDANSETRON 4MG 2ML VIAL IV PRN (02:32)
[2022-10-24 03:58] VITALS: BP 137/92
[2022-10-24] MEDS: SUCRALFATE SUSP 1GM/10ML UD PO SCH ×2 (06:08→13:06)
[2022-10-24 06:18] LABS: BLOOD UREA NITROGEN 12 MG/DL (9-23); CALCIUM LEVEL 8.7 MG/DL (8.5-10.1); CARBON DIOXIDE LEVEL 29 MMOL/L (20-31); CHLORIDE LEVEL 107 MMOL/L (98-107); CREATININE FOR GFR 0.86 MG/DL (0.55-1.30); GLOMERULAR FILTRATION RATE > 60.0 (>60); GLUCOSE, FASTING 145 MG/DL (60-100); PHOSPHORUS LEVEL 1.8 MG/DL (2.5-4.9); POTASSIUM SERUM 3.9 MMOL/L (3.5-5.1); SODIUM LEVEL 142 MMOL/L (136-145)
[2022-10-24] MEDS: ENOXAPARIN 30MG/0.3ML SYRINGE (J1650 PER 10MG) SC SCH (08:11)
[2022-10-24] MEDS: PANTOPRAZOLE 40MG VIAL IV SCH (08:11)
[2022-10-24 08:12] VITALS: BP 176/103
[2022-10-24] MEDS: INSULIN LISPRO (NovoLOG) PER UNIT SC SCH ×2 (08:12→13:07)
[2022-10-24] MEDS ORDERED: K-PHOS NEUTRAL 250MG TABLET (SOD.PHOSPHATE/POT.PHOSPHATE) PO SCH (09:00)
[2022-10-24 10:02] VITALS: BP 135/86
[2022-10-24] MEDS ORDERED: LEVEMIR (INSULIN DETEMIR) 1 UNITS/0.01ML SC ONE (13:05)
[2022-10-24] MEDS ORDERED: CALCIUM CARBONATE 500 MG CHEW U/D PO ONE (13:35)
[2022-10-24] MEDS ORDERED: PHOS1TAB3 PO (15:36)
[2022-10-24] MEDS ORDERED: BASA100I SC (15:36)
[2022-10-24] MEDS ORDERED: REGL5TAB2 PO (15:38)
[2022-10-24 16:28] VITALS: BP 108/63
== END 2022-10-24 16:55 | disposition home or self-care (01) | DRG 420 ==
LOC: M ED 02:00 → M ED INP 05:38 → ENRESERV 07:13 → M ICU 08:47
PROVIDERS: ADMIT Internal Medicine Pulmonary Disease; ATTEND Internal Medicine Pulmonary Disease
PROC: 05H933Z Insertion of Infusion Device into Right Brachial Vein, Percutaneous Approach (ICD-10-PCS; principal; 2022-10-22 15:30)
DX: E10.10 Type 1 diabetes mellitus with ketoacidosis without coma (principal); N17.9 Acute kidney failure, unspecified; E87.4 Mixed disorder of acid-base balance; Z93.0 Tracheostomy status; E83.39 Other disorders of phosphorus metabolism; E10.43 Type 1 diabetes mellitus with diabetic autonomic (poly)neuropathy; Z91.14 Patient's other noncompliance with medication regimen; D72.829 Elevated white blood cell count, unspecified; K21.9 Gastro-esophageal reflux disease without esophagitis; Z79.4 Long term (current) use of insulin; E86.0 Dehydration; Z79.899 Other long term (current) drug therapy; Z20.822 Contact with and (suspected) exposure to COVID-19; I10 Essential (primary) hypertension

== ENCOUNTER → 2023-03-25 | Outpatient (REF) | payer OTHER ==
[~2023-03-25] MED LIST changes: +ADME100I SC; -ATRO1OPD OD; +ATRO2DRO4 OD; +BASA100I SC; +OMEP40CA5 PO; +PHOS1TAB3 PO; +REGL5TAB2 PO; +SUCR1TAB56 PO
== END ==
LOC: M LAB REF 17:22
PROVIDERS: ATTEND Family Medicine Addiction Medicine
DX: Z12.4 Encounter for screening for malignant neoplasm of cervix (principal); R87.610 Atypical squamous cells of undetermined significance on cytologic smear of cervix (ASC-US)

== ENCOUNTER 2023-05-02 08:30 | Day surgery (SDC) | payer OTHER ==
[~2023-05-02] VITALS: Ht 162.6 cm; Wt 62.3 kg
[~2023-05-02 08:30] MED LIST changes: -K-TA10TA2 PO; +LIDOCAINE 2% 100MG/5ML SDV (FOR ANES.) As Ordered ONE; +NS 1,000 ML IV ONE; +POTA-165 PO; +propofoL 200 MG/20 ML VIAL As Ordered ONE
[2023-05-02] MEDS ORDERED: fentaNYL 100 MCG/2 ML INJECTION As Ordered ONE (09:12)
[2023-05-02] MEDS ORDERED: GLYCOPYRROLATE INJ 0.2 MG/ML 2 ML VIAL As Ordered ONE (09:12)
[2023-05-02 10:44] VITALS: TEMP 97.4
[2023-05-02 11:13] VITALS: BP 160/104; O2SAT 100
== END 2023-05-02 11:13 | disposition home or self-care (01) ==
LOC: M OPP 08:30
PROVIDERS: ATTEND Internal Medicine Gastroenterology
DX: D12.2 Benign neoplasm of ascending colon (principal); K92.1 Melena; K31.84 Gastroparesis; R68.81 Early satiety; R14.2 Eructation; Z79.84 Long term (current) use of oral hypoglycemic drugs; Z79.891 Long term (current) use of opiate analgesic; Z79.899 Other long term (current) drug therapy
CPT/HCPCS: 43235; 45385; 88305; J3010

== ENCOUNTER 2023-05-15 16:27 | Inpatient (IN) | payer OTHER ==
[2023-05-15] VITALS (11 sets, daily range): BP systolic 123–165; BP diastolic 66–103; TEMP 97.7–98; O2SAT 98–100
[~2023-05-15] VITALS: Ht 165.1 cm; Wt 144.0 kg
[~2023-05-15 16:27] MED LIST changes: -LIDOCAINE 2% 100MG/5ML SDV (FOR ANES.) As Ordered ONE; -NS 1,000 ML IV ONE; -propofoL 200 MG/20 ML VIAL As Ordered ONE
[2023-05-15] MEDS ORDERED: NS 500 ML IV ONE (17:25)
[2023-05-15] MEDS ORDERED: HumuLIN R (REGULAR) INSULIN (NovoLIN R) **100U/ML** PER UNIT IV ONE ×2 (17:25→20:05)
[2023-05-15 17:30] LABS: VENOUS HCO3 3.1 MMOL/L (23.0-27.0); VENOUS O2 SATURATION 93.7 % (60.0-80.0); VENOUS PARTIAL PRESSURE CO2 15.5 mmHg (38.0-50.0); VENOUS PARTIAL PRESSURE O2 91.3 mmHg (30.0-50.0); VENOUS PH 6.924 UNITS (7.330-7.430); VENOUS STANDARD HCO3 5.9 MMOL/L; VENOUS TOTAL CO2 3.6 MMOL/L (24.0-28.0)
[2023-05-15 17:37] LABS: BASO # 0.1 10^3/uL (0.0-0.2); BASO % 0.6 % (0.0-1.0); HEMATOCRIT 37.9 % (36.0-47.0); HEMOGLOBIN 11.4 g/dl (12.0-15.5); LYMPH # 1.5 10^3/uL (1.5-5.0); LYMPH % 10.3 % (24.0-44.0); MEAN CORPUSCULAR HEMOGLOBIN 27.3 pg (27.0-33.0); MEAN CORPUSCULAR HGB CONC 30.1 g/dl (32.0-36.5); MEAN CORPUSCULAR VOLUME 90.9 fl (80.0-96.0); MONO # 0.8 10^3/uL (0.0-0.8); MONO % 5.7 % (2.0-8.0); NEUTROPHILS # 11.8 10^3/uL (1.5-8.5); NEUTROPHILS % 82.5 % (36.0-66.0); PLATELET COUNT, AUTOMATED 316 10^3/uL (150-450); RED BLOOD COUNT 4.17 10^6/uL (4.00-5.40); WHITE BLOOD COUNT 14.3 10^3/uL (4.0-10.0)
[2023-05-15 17:47] LABS: HEMOGLOBIN A1c 12.6 % (4.0-6.0)
[2023-05-15 17:48] LABS: OSMOLALITY SERUM 355 MOSM/KG (275-295)
[2023-05-15] MEDS ORDERED: NS 1,000 ML IV ONE ×2 (17:55→20:55)
[2023-05-15 17:58] LABS: LIPASE 19 U/L (12-53)
[2023-05-15 18:30] LABS: ACETONE/KETONE > 4.50 MMOL/L (0.02-0.27); ALBUMIN 2.9 G/DL (3.2-5.2); ALKALINE PHOSPHATASE 81 U/L (46-116); ALT/SGPT 19 U/L (7.0-40); AST/SGOT 12 U/L (<34); BILIRUBIN,DIRECT < 0.1 MG/DL (<0.4); BILIRUBIN,TOTAL 0.3 MG/DL (0.3-1.2); BLOOD UREA NITROGEN 42 MG/DL (9-23); CALCIUM LEVEL 9.9 MG/DL (8.5-10.1); CARBON DIOXIDE LEVEL < 10.0 MMOL/L (20-31); CHLORIDE LEVEL 100 MMOL/L (98-107); CREATININE FOR GFR 1.65 MG/DL (0.55-1.30); GLOMERULAR FILTRATION RATE 37.7 (>60); GLUCOSE, FASTING 668 MG/DL (60-100); POTASSIUM SERUM 6.6 MMOL/L (3.5-5.1); SODIUM LEVEL 134 MMOL/L (136-145); TOTAL PROTEIN 6.5 G/DL (5.7-8.2)
[2023-05-15] MEDS ORDERED: INSULIN IV RATE CHANGE DOCUMENTATION ML/HR XX SCH (18:30)
[2023-05-15] MEDS ORDERED: INSULIN REGULAR IN 0.9 % NACL 100 UNIT in IV 1 EA IV SCH ×2 (18:30)
[2023-05-15] MEDS ORDERED: CALCIUM CHLORIDE 10% 1 GM in D5W 100 ML IV ONE (18:30)
[2023-05-15] MEDS ORDERED: NS 1,000 ML IV SCH ×2 (18:35→20:55)
[2023-05-15 18:49] LABS: RSV AMPLIFICATION NEGATIVE (NEGATIVE)
[2023-05-15] MEDS ORDERED: BASA100I SC (19:47)
[2023-05-15] MEDS ORDERED: INSU100I38 INJ (19:47)
[2023-05-15] MEDS ORDERED: HOME MED LIST COMPLETE! XX SCH (19:55)
[2023-05-15 20:03] LABS: BLOOD UREA NITROGEN 42 MG/DL (9-23); CALCIUM LEVEL 9.7 MG/DL (8.5-10.1); CARBON DIOXIDE LEVEL < 10.0 MMOL/L (20-31); CHLORIDE LEVEL 102 MMOL/L (98-107); CREATININE FOR GFR 1.71 MG/DL (0.55-1.30); GLOMERULAR FILTRATION RATE 36.2 (>60); GLUCOSE, FASTING 679 MG/DL (60-100); POTASSIUM SERUM 7.1 MMOL/L (3.5-5.1); SODIUM LEVEL 135 MMOL/L (136-145)
[2023-05-15] MEDS ORDERED: SODIUM BICARBONATE 8.4% INJ 50ML SYRINGE IV STA (20:55)
[2023-05-15 21:43] LABS: ABG BASE EXCESS -26.4 (-2.0-2.0); ABG HCO3 4.2 MMOL/L (22.0-26.0); ABG O2 SATURATION 74.5 % (95.0-99.0); ABG STANDARD HCO3 5.8 MMOL/L. (22.0-26.0); ABG TOTAL CO2 4.8 MMOL/L (22.0-29.0)
[2023-05-15 21:45] LABS: ABG PARTIAL PRESSURE CO2 19.6 mmHg (35.0-45.0); ABG PARTIAL PRESSURE O2 44.3 mmHg (75.0-100.0); ABG pH (ARTERIAL) 6.951 UNITS (7.350-7.450)
[2023-05-15] MEDS: INSULIN REGULAR IN 0.9 % NACL 100 UNIT in IV 1 EA IV SCH ×2 (22:19)
[2023-05-15 22:24] LABS: BLOOD UREA NITROGEN 44 MG/DL (9-23); CALCIUM LEVEL 10.5 MG/DL (8.5-10.1); CARBON DIOXIDE LEVEL < 10.0 MMOL/L (20-31); CHLORIDE LEVEL 111 MMOL/L (98-107); CREATININE FOR GFR 1.69 MG/DL (0.55-1.30); GLOMERULAR FILTRATION RATE 36.7 (>60); GLUCOSE, FASTING 537 MG/DL (60-100); PHOSPHORUS LEVEL 6.4 MG/DL (2.5-4.9); POTASSIUM SERUM 5.1 MMOL/L (3.5-5.1); SODIUM LEVEL 143 MMOL/L (136-145)
[2023-05-15 22:51] LABS: ABG STANDARD HCO3 8.4 MMOL/L. (22.0-26.0)
[2023-05-15 22:52] LABS: ABG HCO3 4.8 MMOL/L (22.0-26.0); ABG O2 SATURATION 98.4 % (95.0-99.0); ABG PARTIAL PRESSURE O2 159.1 mmHg (75.0-100.0); ABG TOTAL CO2 5.3 MMOL/L (22.0-29.0)
[2023-05-15 22:53] LABS: ABG pH (ARTERIAL) 7.145 UNITS (7.350-7.450)
[2023-05-15 22:55] LABS: ABG PARTIAL PRESSURE CO2 14.3 mmHg (35.0-45.0)
[2023-05-15] MEDS: INSULIN IV RATE CHANGE DOCUMENTATION ML/HR XX SCH (23:11)
[2023-05-15 23:27] LABS: BLOOD UREA NITROGEN 41 MG/DL (9-23); CALCIUM LEVEL 9.7 MG/DL (8.5-10.1); CARBON DIOXIDE LEVEL < 10.0 MMOL/L (20-31); CHLORIDE LEVEL 114 MMOL/L (98-107); CREATININE FOR GFR 1.59 MG/DL (0.55-1.30); GLOMERULAR FILTRATION RATE 39.3 (>60); GLUCOSE, FASTING 414 MG/DL (60-100); POTASSIUM SERUM 4.9 MMOL/L (3.5-5.1); SODIUM LEVEL 147 MMOL/L (136-145)
[2023-05-15] MEDS: NS 0.45% 1,000 ML IV SCH (23:41)
[2023-05-16] VITALS (41 sets, daily range): BP systolic 111–181; BP diastolic 58–98; TEMP 97.6–99.2; O2SAT 28–100
[2023-05-16] MEDS: INSULIN IV RATE CHANGE DOCUMENTATION ML/HR XX SCH ×3 (00:26→07:42)
[2023-05-16] MEDS: NS 0.45% 1,000 ML IV SCH (02:00)
[2023-05-16] MEDS: D5W/0.45% SODIUM CHLORIDE 1,000 ML IV SCH ×2 (02:37→10:30)
[2023-05-16 03:56] LABS: CALCIUM LEVEL 9.2 MG/DL (8.5-10.1); CREATININE FOR GFR 1.32 MG/DL (0.55-1.30); GLOMERULAR FILTRATION RATE 48.8 (>60); PHOSPHORUS LEVEL 1.8 MG/DL (2.5-4.9)
[2023-05-16 05:36] LABS: ABG BASE EXCESS -12.1 (-2.0-2.0); ABG HCO3 13.5 MMOL/L (22.0-26.0); ABG O2 SATURATION 98.4 % (95.0-99.0); ABG PARTIAL PRESSURE CO2 29.6 mmHg (35.0-45.0); ABG PARTIAL PRESSURE O2 162.6 mmHg (75.0-100.0); ABG STANDARD HCO3 14.9 MMOL/L. (22.0-26.0); ABG TOTAL CO2 14.4 MMOL/L (22.0-29.0); ABG pH (ARTERIAL) 7.277 UNITS (7.350-7.450)
[2023-05-16] MEDS: HEPARIN SOD (PORCINE) 5000UNITS/ML 1ML VIAL/SYRINGE SC SCH ×3 (06:00→21:11)
[2023-05-16] MEDS: INSULIN REGULAR IN 0.9 % NACL 100 UNIT in IV 1 EA IV SCH ×2 (06:58)
[2023-05-16 07:30] LABS: HEMOGLOBIN 9.1 g/dl (12.0-15.5); MEAN CORPUSCULAR HEMOGLOBIN 27.9 pg (27.0-33.0); MEAN CORPUSCULAR HGB CONC 33.7 g/dl (32.0-36.5); MEAN CORPUSCULAR VOLUME 82.8 fl (80.0-96.0); PLATELET COUNT, AUTOMATED 204 10^3/uL (150-450); RED BLOOD COUNT 3.26 10^6/uL (4.00-5.40)
[2023-05-16 07:31] LABS: CALCIUM LEVEL 9.1 MG/DL (8.5-10.1); CREATININE FOR GFR 1.18 MG/DL (0.55-1.30); GLOMERULAR FILTRATION RATE 55.5 (>60); PHOSPHORUS LEVEL 2.1 MG/DL (2.5-4.9)
[2023-05-16] MEDS ORDERED: ONDANSETRON 4MG 2ML VIAL IV PRN (08:00)
[2023-05-16] MEDS ORDERED: LEVEMIR (INSULIN DETEMIR) 1 UNITS/0.01ML SC SCH ×2 (08:25→21:00)
[2023-05-16] MEDS ORDERED: DEXTROSE 50% 50ML SYRINGE IV PRN (08:35)
[2023-05-16] MEDS ORDERED: GLUCOSE 4GM CHEW TABLET PO PRN (08:35)
[2023-05-16] MEDS ORDERED: GLUCAGON INJ 1MG VIAL SC PRN (08:35)
[2023-05-16] MEDS ORDERED: PANTOPRAZOLE 40MG VIAL IV SCH (09:00)
[2023-05-16] MEDS: LABETALOL 100MG/20ML VIAL IV PRN (09:44)
[2023-05-16] MEDS ORDERED: POTASSIUM PHOSPHATE INJ 15 MMOL in D5W 250 ML IV ONE (11:00)
[2023-05-16] MEDS: INSULIN LISPRO (NovoLOG) PER UNIT SC SCH ×3 (12:00→21:00)
[2023-05-16] MEDS: METOCLOPRAMIDE INJ 10MG/2ML VIAL IV PRN (14:20)
[2023-05-17] VITALS (14 sets, daily range): BP systolic 123–168; BP diastolic 69–106; TEMP 92.4–99.3; O2SAT 90–100
[2023-05-17 04:47] LABS: HEMATOCRIT 31.3 % (36.0-47.0); HEMOGLOBIN 10.3 g/dl (12.0-15.5); MEAN CORPUSCULAR HEMOGLOBIN 27.1 pg (27.0-33.0); MEAN CORPUSCULAR HGB CONC 32.9 g/dl (32.0-36.5); MEAN CORPUSCULAR VOLUME 82.4 fl (80.0-96.0); PLATELET COUNT, AUTOMATED 193 10^3/uL (150-450); WHITE BLOOD COUNT 7.6 10^3/uL (4.0-10.0)
[2023-05-17] MEDS: LABETALOL 100MG/20ML VIAL IV PRN (05:05)
[2023-05-17] MEDS: HEPARIN SOD (PORCINE) 5000UNITS/ML 1ML VIAL/SYRINGE SC SCH ×3 (05:08→21:26)
[2023-05-17] MEDS ORDERED: DEXTROSE 50% 50ML SYRINGE IV STA ×2 (05:36→05:40)
[2023-05-17 05:49] LABS: BLOOD UREA NITROGEN 22 MG/DL (9-23); CARBON DIOXIDE LEVEL 20 MMOL/L (20-31); CHLORIDE LEVEL 115 MMOL/L (98-107); CREATININE FOR GFR 1.03 MG/DL (0.55-1.30); GLOMERULAR FILTRATION RATE > 60.0 (>60); GLUCOSE, FASTING 10 MG/DL (60-100); MAGNESIUM LEVEL 2.2 MG/DL (1.8-2.4); PHOSPHORUS LEVEL 2.6 MG/DL (2.5-4.9); POTASSIUM SERUM 3.2 MMOL/L (3.5-5.1); SODIUM LEVEL 145 MMOL/L (136-145)
[2023-05-17] MEDS ORDERED: POTASSIUM CHLORIDE 10% LIQ 20MEQ/15ML UDC PO ONE (06:30)
[2023-05-17] MEDS: INSULIN LISPRO (NovoLOG) PER UNIT SC SCH ×4 (09:00→21:00)
[2023-05-17] MEDS ORDERED: POTASSIUM CHLORIDE 10MEQ SR TABLET PO ONE (09:00)
[2023-05-17] MEDS: METOCLOPRAMIDE INJ 10MG/2ML VIAL IV PRN (12:25)
[2023-05-17] MEDS: OMEPRAZOLE 20MG CAP PO SCH ×2 (12:25→21:27)
[2023-05-17] MEDS ORDERED: LEVEMIR (INSULIN DETEMIR) 1 UNITS/0.01ML SC SCH (21:00)
[2023-05-17] MEDS ORDERED: ACETAMINOPHEN TAB 650MG DOSE (2X325MG) PO PRN (21:40)
[2023-05-18 05:23] VITALS: BP 128/83; TEMP 98.6; O2SAT 96
[2023-05-18] MEDS: HEPARIN SOD (PORCINE) 5000UNITS/ML 1ML VIAL/SYRINGE SC SCH ×3 (05:26→13:42)
[2023-05-18] MEDS: INSULIN LISPRO (NovoLOG) PER UNIT SC SCH ×2 (07:30→12:54)
[2023-05-18] MEDS: OMEPRAZOLE 20MG CAP PO SCH (08:06)
[2023-05-18 09:08] LABS: HEMATOCRIT 34.3 % (36.0-47.0); HEMOGLOBIN 10.6 g/dl (12.0-15.5); MEAN CORPUSCULAR HEMOGLOBIN 27.2 pg (27.0-33.0); MEAN CORPUSCULAR HGB CONC 30.9 g/dl (32.0-36.5); MEAN CORPUSCULAR VOLUME 88.2 fl (80.0-96.0); RED BLOOD COUNT 3.89 10^6/uL (4.00-5.40); WHITE BLOOD COUNT 3.9 10^3/uL (4.0-10.0)
[2023-05-18 09:23] LABS: BLOOD UREA NITROGEN 13 MG/DL (9-23); CALCIUM LEVEL 9.4 MG/DL (8.5-10.1); CARBON DIOXIDE LEVEL 17 MMOL/L (20-31); CHLORIDE LEVEL 112 MMOL/L (98-107); CREATININE FOR GFR 0.76 MG/DL (0.55-1.30); GLOMERULAR FILTRATION RATE > 60.0 (>60); GLUCOSE, FASTING 90 MG/DL (60-100); MAGNESIUM LEVEL 1.9 MG/DL (1.8-2.4); PHOSPHORUS LEVEL 2.2 MG/DL (2.5-4.9); POTASSIUM SERUM 3.6 MMOL/L (3.5-5.1); SODIUM LEVEL 142 MMOL/L (136-145)
[2023-05-18 09:40] VITALS: BP 148/94
[2023-05-18] MEDS ORDERED: ADME100I SC (12:43)
[2023-05-18] MEDS ORDERED: BASA100I SC (12:43)
[2023-05-18] MEDS ORDERED: LISI20TA33 PO (12:43)
[2023-05-18] MEDS ORDERED: OMEP40CA5 PO (12:43)
[2023-05-18] MEDS ORDERED: DEXT4TAB83 PO (12:44)
[2023-05-18] MEDS ORDERED: REGL5TAB2 PO (12:48)
[2023-05-18] MEDS ORDERED: PHOS1TAB3 PO (12:56)
[2023-05-18] MEDS ORDERED: POTASSIUM CHLORIDE 10MEQ SR TABLET PO ONE (13:00)
[2023-05-18] MEDS ORDERED: K-PHOS ORIGINAL (POT.ACID PHOSPHATE) 500MG TAB PO ONE (13:45)
[2023-05-18] MEDS ORDERED: amLODIPine 5 MG TAB PO ONE (13:50)
[2023-05-18] MEDS ORDERED: AMLO1TAB24 PO (13:52)
[2023-05-18 14:00] VITALS: BP_SYST 162; BP_SYST 164; BP_DIAS 102; BP_DIAS 104; TEMP 97.3; O2SAT 98
[2023-05-18 15:49] VITALS: BP 158/92
== END 2023-05-18 17:24 | disposition home or self-care (01) | DRG 420 ==
LOC: M ED 16:27 → M ED INP 20:55 → ENRESERV 21:37 → M ICU 22:19 → M MSPAV 05-17 19:51
PROVIDERS: ADMIT Internal Medicine; ATTEND Internal Medicine
DX: E10.10 Type 1 diabetes mellitus with ketoacidosis without coma (principal); N17.9 Acute kidney failure, unspecified; Z93.0 Tracheostomy status; E10.43 Type 1 diabetes mellitus with diabetic autonomic (poly)neuropathy; E83.39 Other disorders of phosphorus metabolism; E87.5 Hyperkalemia; I10 Essential (primary) hypertension; D64.9 Anemia, unspecified; Z79.4 Long term (current) use of insulin; Z79.899 Other long term (current) drug therapy; K21.9 Gastro-esophageal reflux disease without esophagitis; G43.909 Migraine, unspecified, not intractable, without status migrainosus; Z91.128 Patient's intentional underdosing of medication regimen for other reason

== ENCOUNTER 2023-05-24 21:35 | Emergency (ER) | payer OTHER ==
[~2023-05-24] VITALS: Ht 162.6 cm; Wt 72.6 kg
[~2023-05-24 21:35] MED LIST changes: +AMLO1TAB24 PO; +DEXT4TAB83 PO; +INSU100I38 INJ
[2023-05-24] MEDS ORDERED: D5W/0.45% SODIUM CHLORIDE 1,000 ML IV SCH (21:55)
[2023-05-24 22:09] VITALS: BP 209/128
[2023-05-24 22:15] VITALS: TEMP 96.4
[2023-05-24 22:16] LABS: BASO % 0.3 % (0.0-1.0); EOS # 0.1 10^3/uL (0.0-0.5); EOS % 2.1 % (0.0-3.0); HEMATOCRIT 27.8 % (36.0-47.0); LYMPH # 1.5 10^3/uL (1.5-5.0); LYMPH % 37.5 % (24.0-44.0); MEAN CORPUSCULAR HEMOGLOBIN 27.7 pg (27.0-33.0); MEAN CORPUSCULAR HGB CONC 32.4 g/dl (32.0-36.5); MEAN CORPUSCULAR VOLUME 85.5 fl (80.0-96.0); MONO # 0.5 10^3/uL (0.0-0.8); MONO % 13.9 % (2.0-8.0); NEUTROPHILS # 1.8 10^3/uL (1.5-8.5); NEUTROPHILS % 45.4 % (36.0-66.0); PLATELET COUNT, AUTOMATED 203 10^3/uL (150-450); RED BLOOD COUNT 3.25 10^6/uL (4.00-5.40); WHITE BLOOD COUNT 3.9 10^3/uL (4.0-10.0)
[2023-05-24 22:47] LABS: LIPASE 42 U/L (12-53)
[2023-05-24 22:50] LABS: ALBUMIN 2.2 G/DL (3.2-5.2); ALKALINE PHOSPHATASE 53 U/L (46-116); ALT/SGPT 28 U/L (7.0-40); AST/SGOT 32 U/L (<34); BILIRUBIN,DIRECT < 0.1 MG/DL (<0.4); BILIRUBIN,TOTAL < 0.2 MG/DL (0.3-1.2); BLOOD UREA NITROGEN 20 MG/DL (9-23); CARBON DIOXIDE LEVEL 23 MMOL/L (20-31); CREATININE FOR GFR 0.84 MG/DL (0.55-1.30); GLOMERULAR FILTRATION RATE > 60.0 (>60); GLUCOSE, FASTING 103 MG/DL (60-100); POTASSIUM SERUM 3.7 MMOL/L (3.5-5.1); SODIUM LEVEL 139 MMOL/L (136-145); TOTAL PROTEIN 5.1 G/DL (5.7-8.2)
[2023-05-24 23:10] LABS: CALCIUM LEVEL 8.3 MG/DL (8.5-10.1); CHLORIDE LEVEL 110 MMOL/L (98-107)
[2023-05-25 02:30] VITALS: BP 198/128; O2SAT 100
== END 2023-05-25 03:26 | disposition home or self-care (01) ==
LOC: M ED 21:35 → EDBD 21:35 → M ED 05-25 03:26
DX: E10.649 Type 1 diabetes mellitus with hypoglycemia without coma (principal); I10 Essential (primary) hypertension; Z91.048 Other nonmedicinal substance allergy status; Z79.811 Long term (current) use of aromatase inhibitors; Z79.899 Other long term (current) drug therapy

== ENCOUNTER → 2024-06-08 | Outpatient (REF) | payer OTHER, MEDICAID ==
[~2024-06-08] MED LIST changes: +CEFD1CAP9 PO; -CEFD300C41 PO; +DOXY-440 PO; -DOXY-444 PO; +LORA-1041 PO; -LORA-674 PO; -PROC25SU24 PR; +PROC25SU27 PR
[2024-06-08 18:38] LABS: CALCIUM LEVEL 8.8 MG/DL (8.5-10.1); CREATININE FOR GFR 1.62 MG/DL (0.55-1.30); GLOMERULAR FILTRATION RATE 38.3 (>60); POTASSIUM SERUM 4.8 MMOL/L (3.5-5.1)
== END ==
LOC: M LAB REF 16:26
PROVIDERS: ATTEND Nurse Practitioner Family
DX: R79.89 Other specified abnormal findings of blood chemistry (principal)

== ENCOUNTER → 2024-08-07 | Outpatient (REF) | payer OTHER, MEDICAID | LOC: M LAB REF 12:10 | PROVIDERS: ATTEND Family Medicine Addiction Medicine | DX: R31.29 Other microscopic hematuria (principal) ==

== ENCOUNTER 2024-08-14 11:54 | Emergency (ER) | payer MEDICAID, OTHER ==
[~2024-08-14] VITALS: Ht 162.6 cm; Wt 59.1 kg
[2024-08-14] MEDS ORDERED: NITR100C2 PO (12:11)
[2024-08-14] MEDS ORDERED: AMLO1TAB25 PO (12:11)
[2024-08-14 16:34] LABS: VENOUS BASE EXCESS -8.5 (-2.0-2.0); VENOUS HCO3 18.4 MMOL/L (23.0-27.0); VENOUS PARTIAL PRESSURE CO2 43.4 mmHg (38.0-50.0); VENOUS PARTIAL PRESSURE O2 59.6 mmHg (30.0-50.0); VENOUS PH 7.245 UNITS (7.330-7.430); VENOUS STANDARD HCO3 17.4 MMOL/L; VENOUS TOTAL CO2 19.7 MMOL/L (24.0-28.0)
[2024-08-14 16:41] LABS: BASO % 0.6 % (0.0-1.0); EOS % 0.2 % (0.0-3.0); HEMATOCRIT 29.3 % (36.0-47.0); HEMOGLOBIN 9.7 g/dl (12.0-15.5); LYMPH % 19.4 % (24.0-44.0); MEAN CORPUSCULAR HGB CONC 33.1 g/dl (32.0-36.5); MEAN CORPUSCULAR VOLUME 87.5 fl (80.0-96.0); MONO # 0.3 10^3/uL (0.0-0.8); MONO % 5.5 % (2.0-8.0); NEUTROPHILS # 3.7 10^3/uL (1.5-8.5); NEUTROPHILS % 73.9 % (36.0-66.0); PLATELET COUNT, AUTOMATED 203 10^3/uL (150-450); RED BLOOD COUNT 3.35 10^6/uL (4.00-5.40); WHITE BLOOD COUNT 4.9 10^3/uL (4.0-10.0)
[2024-08-14 17:05] LABS: HEMOGLOBIN A1c 7.6 % (4.0-6.0)
[2024-08-14] MEDS: NS 1,000 ML IV ONE (17:07)
[2024-08-14 17:13] LABS: LIPASE 28 U/L (12-53)
[2024-08-14 17:15] LABS: ACETONE/KETONE 3.66 MMOL/L (0.02-0.27)
[2024-08-14 17:18] LABS: OSMOLALITY SERUM 318 MOSM/KG (275-295)
[2024-08-14 17:23] LABS: ALBUMIN 3.1 G/DL (3.2-5.2); ALKALINE PHOSPHATASE 58 U/L (46-116); ALT/SGPT 16 U/L (7.0-40); AST/SGOT 12 U/L (<34); BILIRUBIN,DIRECT 0.2 MG/DL (<0.4); BILIRUBIN,TOTAL 0.7 MG/DL (0.3-1.2); BLOOD UREA NITROGEN 39 MG/DL (9-23); CALCIUM LEVEL 9.1 MG/DL (8.5-10.1); CARBON DIOXIDE LEVEL 20 MMOL/L (20-31); CHLORIDE LEVEL 101 MMOL/L (98-107); CREATININE FOR GFR 1.85 MG/DL (0.55-1.30); GLOMERULAR FILTRATION RATE 32.8 (>60); GLUCOSE, FASTING 475 MG/DL (60-100); HCG, SERUM QUALITATIVE NEGATIVE (NEGATIVE); POTASSIUM SERUM 5.1 MMOL/L (3.5-5.1); SODIUM LEVEL 131 MMOL/L (136-145); TOTAL PROTEIN 6.4 G/DL (5.7-8.2)
[2024-08-14] MEDS: LEVEMIR (INSULIN DETEMIR) 1 UNITS/0.01ML SC ONE (18:01)
[2024-08-14] MEDS: HumuLIN R (REGULAR) INSULIN (NovoLIN R) **100U/ML** PER UNIT IV ONE (18:03)
[2024-08-14] MEDS ORDERED: BASA100I SC (20:31)
[2024-08-14] MEDS ORDERED: LISI20TA33 PO (20:31)
[2024-08-14] MEDS ORDERED: HOME MED LIST COMPLETE! XX SCH (20:35)
[2024-08-14 22:09] LABS: CALCIUM LEVEL 8.5 MG/DL (8.5-10.1); CREATININE FOR GFR 1.74 MG/DL (0.55-1.30); GLOMERULAR FILTRATION RATE 35.2 (>60); POTASSIUM SERUM 4.4 MMOL/L (3.5-5.1)
[2024-08-14 22:58] VITALS: BP 160/88; TEMP 97.1; O2SAT 99
== END 2024-08-14 23:00 | disposition home or self-care (01) ==
LOC: M ED 11:54
DX: E10.649 Type 1 diabetes mellitus with hypoglycemia without coma (principal); G43.909 Migraine, unspecified, not intractable, without status migrainosus; I10 Essential (primary) hypertension; E78.5 Hyperlipidemia, unspecified; K21.9 Gastro-esophageal reflux disease without esophagitis; Z91.048 Other nonmedicinal substance allergy status; Z79.02 Long term (current) use of antithrombotics/antiplatelets; Z79.4 Long term (current) use of insulin; Z79.811 Long term (current) use of aromatase inhibitors; Z79.899 Other long term (current) drug therapy
CPT/HCPCS: 80048; 80076; 81001; 82010; 82803; 83036; 83690; 83930; 84703; 85025; 96374; 99284; J1815

== ENCOUNTER → 2024-12-17 | Outpatient (REF) | payer OTHER, MEDICAID ==
[~2024-12-17] MED LIST changes: +AMLO1TAB25 PO; +NITR100C2 PO
== END ==
LOC: M LAB REF 12:23
PROVIDERS: ATTEND Nurse Practitioner Family
DX: B34.9 Viral infection, unspecified (principal)

== ENCOUNTER → 2025-02-28 | Outpatient (REF) | payer OTHER, MEDICAID ==
[2025-02-28 13:14] LABS: BASO % 0.8 % (0.0-1.0); EOS # 0.2 10^3/uL (0.0-0.5); EOS % 4.9 % (0.0-3.0); HEMATOCRIT 27.7 % (36.0-47.0); HEMOGLOBIN 9.1 g/dl (12.0-15.5); LYMPH # 1.3 10^3/uL (1.5-5.0); LYMPH % 33.3 % (24.0-44.0); MEAN CORPUSCULAR HEMOGLOBIN 28.7 pg (27.0-33.0); MEAN CORPUSCULAR HGB CONC 32.9 g/dl (32.0-36.5); MEAN CORPUSCULAR VOLUME 87.4 fl (80.0-96.0); MONO # 0.3 10^3/uL (0.0-0.8); MONO % 7.2 % (2.0-8.0); NEUTROPHILS # 2.1 10^3/uL (1.5-8.5); NEUTROPHILS % 53.5 % (36.0-66.0); PLATELET COUNT, AUTOMATED 214 10^3/uL (150-450); RED BLOOD COUNT 3.17 10^6/uL (4.00-5.40); WHITE BLOOD COUNT 3.9 10^3/uL (4.0-10.0)
[2025-02-28 13:35] LABS: ALBUMIN 1.7 G/DL (3.2-5.2); BILIRUBIN,TOTAL 0.2 MG/DL (0.3-1.2); CALCIUM LEVEL 8.4 MG/DL (8.5-10.1); CREATININE FOR GFR 2.1 MG/DL (0.55-1.30); GLOMERULAR FILTRATION RATE 30.6 (>60); POTASSIUM SERUM 4.6 MMOL/L (3.5-5.1); TOTAL PROTEIN 4.9 G/DL (5.7-8.2)
[2025-02-28 13:36] LABS: THYROID STIMULATING HORMONE 1.968 uIU/ML (0.55-4.78)
== END ==
LOC: M LAB REF 12:37
PROVIDERS: ATTEND Family Medicine Addiction Medicine
DX: I10 Essential (primary) hypertension (principal)

== ENCOUNTER → 2025-05-30 | Outpatient (CLI) | payer OTHER ==
[~2025-05-30] MED LIST changes: +MAG30ORA18 PO; -MYLASSUD PO; +PRAV40TA85 PO; -SUCR1ORA2 PO; +SUCR1ORA20 PO
[2025-05-30 12:00] LABS: BASO # 0.1 10^3/uL (0.0-0.2); BASO % 1.1 % (0.0-1.0); EOS # 0.1 10^3/uL (0.0-0.5); EOS % 2.2 % (0.0-3.0); LYMPH # 1.2 10^3/uL (1.5-5.0); LYMPH % 26.7 % (24.0-44.0); MONO # 0.3 10^3/uL (0.0-0.8); MONO % 7.0 % (2.0-8.0); NEUTROPHILS # 2.9 10^3/uL (1.5-8.5); NEUTROPHILS % 62.6 % (36.0-66.0); PLATELET COUNT, AUTOMATED 220 10^3/uL (150-450)
== END ==
LOC: M LAB 10:59
PROVIDERS: ATTEND Student in an Organized Health Care Education/Training Program
DX: R80.1 Persistent proteinuria, unspecified (principal)